=== PATIENT | female | born 1945 | race Caucasian/White ===

== ENCOUNTER → 2018-01-12 18:28 | Outpatient (CLI) | payer MEDICARE, SELFPAY ==
--- NOTE | 2018-01-12 18:38 | RAD_ITS ---
STUDY: X-RAY CHEST REASON FOR EXAM: Female, 72 years old. Bronchitis. TECHNIQUE: PA and lateral chest. COMPARISON: None. FINDINGS: The lungs are clear and expanded. There is no demonstrated pleural abnormality. Normal size heart. Normal mediastinum and tl. Normal visualized pulmonary arteries. There is atherosclerotic calcification of the aortic arch. Normal visualized thoracic spine. Normal visualized ribs, clavicles, and shoulders. Sternal wires are present. There is no demonstrated abnormality of the visualized soft tissue structures of the upper abdomen. RAD/Chest PA and Lateral IMPRESSION: No acute cardiopulmonary disease. Electronically Signed: Jose Juan Marti MD at 2:05 EDT , Service support ,
== END ==
LOC: LAB 18:34
PROVIDERS: Family Provider Family Medicine Geriatric Medicine; PCP Family Medicine Geriatric Medicine; Visit Provider Family Medicine Geriatric Medicine
DX: J40 Bronchitis, not specified as acute or chronic (principal)
CPT/HCPCS: 71046; 87633

== ENCOUNTER → 2018-05-24 16:17 | Outpatient (CLI) | payer MEDICARE, SELFPAY ==
[2018-05-24 17:27] LABS: Absolute Lymphocyte Count 1.99 X10^3/ul (0.83-4.51); Absolute Neutrophil Count 4.3 X10^3/uL (2.0-7.7); Basophil# 0.03 X10^3/uL; Basophil% 0.4 % (0-1); Eosinophil# 0.17 X10^3/uL; Eosinophils% 2.4 % (0-5); Hematocrit 32.2 % (37-47); Hemoglobin 10.7 g/dl (12.0-15.0); Lymphocyte # 1.99 X10^3/ul (4.0); Lymphocyte % 27.7 % (19-41); Mean Corp Hgb Conc 33.2 g/gl (32-36); Mean Corpuscular Hgb 28.9 pg (27.0-32.0); Mean Platelet Vol. 10.3 fl (6.2-12.0); Monocyte# 0.71 X10^3/uL; Monocyte% 9.9 % (0-10); Neutrophil # 4.27 X10^3/uL (2.7-7.7); Neutrophil % 59.3 % (47-70); POSITIVE COUNT NO; POSITIVE DIFFERENTIAL NO; POSITIVE MORPHOLOGY NO; Platelet Count 222 K/mm3 (150-450); RBC Distribution Width SD 42.9 fl (35.1-43.9); White Blood Count 7.2 K/mm3 (4.4-11.0)
[2018-05-24 18:21] LABS: ALB/GLOB Ratio 0.7 RATIO (0.9-2.4); AST(SGOT) 20 U/L (15-37); Alanine Aminotransfer ALT/SGPT 20 U/L (13-56); Albumin, Serum 3.1 g/dL (3.2-5.0); Alkaline Phosphatase 102 U/L (45-117); Anion Gap 9 (5-15); BUN 11 mg/dL (7-18); BUN/Creat Ratio 14.9 RATIO (10-20); Chloride 105 mmol/L (98-107); Cholesterol 189 mg/dL (200); Creatinine, Serum 0.74 mg/dL (0.55-1.02); EST Glomerular Filtration Rate 83 mL/min (>60); Est Glom Filt Rate - Afr Amer 100 mL/min (>60); Globulin 4.3 g/dL (2.2-4.2); Glucose 356 mg/dL (74-106); High Density Lipoprotein 43 mg/dL; Potassium 3.9 mmol/L (3.5-5.1); Protein, Total 7.4 g/dL (6.4-8.2); Sodium Level 139 mmol/L (136-145); Thyroid Stim Hormone (TSH) 6.34 uIU/mL (0.358-3.74); Triglycerides 228 mg/dL; Very Low Density Lipoprotein 46 mg/dL (5-40)
[2018-05-25 09:19] LABS: Vitamin D,25 Hydroxy 28.3 ng/mL (29.95-100.01)
== END ==
LOC: POLAB3 16:18
PROVIDERS: Family Provider Family Medicine Geriatric Medicine; PCP Family Medicine Geriatric Medicine; Visit Provider Family Medicine Geriatric Medicine
DX: E11.9 Type 2 diabetes mellitus without complications (principal); I10 Essential (primary) hypertension; E55.9 Vitamin D deficiency, unspecified
CPT/HCPCS: 36415; 80053; 80061; 82306; 84443; 85025

== ENCOUNTER → 2018-08-11 14:54 | Outpatient (CLI) | payer MEDICARE, SELFPAY ==
[2018-08-11 17:18] LABS: Absolute Lymphocyte Count 1.92 X10^3/ul (0.83-4.51); Absolute Neutrophil Count 3.5 X10^3/uL (2.0-7.7); Basophil# 0.02 X10^3/uL; Basophil% 0.3 % (0-1); Eosinophil# 0.16 X10^3/uL; Eosinophils% 2.6 % (0-5); Hematocrit 28.5 % (37-47); Hemoglobin 9.5 g/dl (12.0-15.0); Lymphocyte # 1.92 X10^3/ul (4.0); Lymphocyte % 30.6 % (19-41); Mean Corp Hgb Conc 33.3 g/gl (32-36); Mean Corpuscular Hgb 29.5 pg (27.0-32.0); Mean Corpuscular Volume 88.5 fL (81-99); Monocyte# 0.68 X10^3/uL; Monocyte% 10.8 % (0-10); Neutrophil # 3.47 X10^3/uL (2.7-7.7); Neutrophil % 55.4 % (47-70); Platelet Count 218 K/mm3 (150-450); RBC Distribution Width CV 15.7 % (11.6-14.6); RBC Distribution Width SD 48.5 fl (35.1-43.9); Red Blood Count 3.22 M/mm3 (4.2-5.4); White Blood Count 6.3 K/mm3 (4.4-11.0)
[2018-08-11 17:30] LABS: POSITIVE COUNT NO; POSITIVE DIFFERENTIAL NO; POSITIVE MORPHOLOGY NO
[2018-08-11 17:38] LABS: ALB/GLOB Ratio 0.8 RATIO (0.9-2.4); AST(SGOT) 17 U/L (15-37); Alanine Aminotransfer ALT/SGPT 18 U/L (13-56); Albumin, Serum 3.1 g/dL (3.2-5.0); Alkaline Phosphatase 61 U/L (45-117); Anion Gap 9 (5-15); BUN 16 mg/dL (7-18); Chloride 110 mmol/L (98-107); Cholesterol 144 mg/dL (200); Creatinine, Serum 0.84 mg/dL (0.55-1.02); EST Glomerular Filtration Rate 71 mL/min (>60); Est Glom Filt Rate - Afr Amer 86 mL/min (>60); Globulin 3.9 g/dL (2.2-4.2); Glucose 218 mg/dL (74-106); High Density Lipoprotein 39 mg/dL; Potassium 3.9 mmol/L (3.5-5.1); Sodium Level 143 mmol/L (136-145); Thyroid Stim Hormone (TSH) 1.04 uIU/mL (0.358-3.74); Triglycerides 194 mg/dL; Very Low Density Lipoprotein 39 mg/dL (5-40)
[2018-08-11 17:40] LABS: Vitamin D,25 Hydroxy 22.2 ng/mL (29.95-100.01)
== END ==
LOC: POLAB3 14:55
PROVIDERS: Family Provider Family Medicine Geriatric Medicine; PCP Family Medicine Geriatric Medicine; Visit Provider Family Medicine Geriatric Medicine
DX: E03.9 Hypothyroidism, unspecified (principal); E11.9 Type 2 diabetes mellitus without complications; E55.9 Vitamin D deficiency, unspecified; I10 Essential (primary) hypertension; E78.49 Other hyperlipidemia
CPT/HCPCS: 36415; 80053; 80061; 82306; 84443; 85025

== ENCOUNTER → 2019-02-08 | Outpatient (CLI) | payer MEDICARE, SELFPAY ==
[2019-02-08 17:27] LABS: Absolute Lymphocyte Count 2.03 X10^3/ul (0.83-4.51); Absolute Neutrophil Count 3.2 X10^3/uL (2.0-7.7); Basophil# 0.02 X10^3/uL; Basophil% 0.3 % (0-1); Eosinophil# 0.17 X10^3/uL; Eosinophils% 2.8 % (0-5); Hematocrit 30.3 % (37-47); Hemoglobin 10.2 g/dl (12.0-15.0); Lymphocyte # 2.03 X10^3/ul (4.0); Lymphocyte % 33.1 % (19-41); Mean Corp Hgb Conc 33.7 g/gl (32-36); Mean Corpuscular Hgb 29.7 pg (27.0-32.0); Mean Corpuscular Volume 88.1 fL (81-99); Mean Platelet Vol. 10.5 fl (6.2-12.0); Monocyte# 0.76 X10^3/uL; Monocyte% 12.4 % (0-10); Neutrophil # 3.15 X10^3/uL (2.7-7.7); Neutrophil % 51.2 % (47-70); Platelet Count 206 K/mm3 (150-450); RBC Distribution Width CV 14.7 % (11.6-14.6); RBC Distribution Width SD 45.3 fl (35.1-43.9); Red Blood Count 3.44 M/mm3 (4.2-5.4); White Blood Count 6.1 K/mm3 (4.4-11.0)
[2019-02-08 17:42] LABS: Vitamin D,25 Hydroxy 19.8 ng/mL (29.95-100.01)
[2019-02-08 17:48] LABS: POSITIVE COUNT NO; POSITIVE DIFFERENTIAL NO; POSITIVE MORPHOLOGY NO
[2019-02-08 17:50] LABS: ALB/GLOB Ratio 0.8 RATIO (0.9-2.4); AST(SGOT) 29 U/L (15-37); Alanine Aminotransfer ALT/SGPT 23 U/L (13-56); Albumin, Serum 3.4 g/dL (3.2-5.0); Alkaline Phosphatase 77 U/L (45-117); Anion Gap 10 (5-15); BUN 12 mg/dL (7-18); BUN/Creat Ratio 13.8 RATIO (10-20); Calcium,Total 9.2 mg/dL (8.5-10.1); Chloride 101 mmol/L (98-107); Cholesterol 118 mg/dL (200); Creatinine, Serum 0.87 mg/dL (0.55-1.02); EST Glomerular Filtration Rate 68 mL/min (>60); Est Glom Filt Rate - Afr Amer 83 mL/min (>60); Globulin 4.3 g/dL (2.2-4.2); Glucose 157 mg/dL (74-106); High Density Lipoprotein 42 mg/dL; Potassium 3.4 mmol/L (3.5-5.1); Protein, Total 7.7 g/dL (6.4-8.2); Sodium Level 131 mmol/L (136-145); Triglycerides 143 mg/dL; Very Low Density Lipoprotein 29 mg/dL (5-40)
== END | disposition home or self-care (01) ==
PROVIDERS: Family Provider Family Medicine Geriatric Medicine; PCP Family Medicine Geriatric Medicine; Visit Provider Family Medicine Geriatric Medicine
DX: E11.9 Type 2 diabetes mellitus without complications (principal); E55.9 Vitamin D deficiency, unspecified; E78.5 Hyperlipidemia, unspecified; I10 Essential (primary) hypertension
CPT/HCPCS: 36415; 80053; 80061; 82306; 84443; 85025

== ENCOUNTER → 2019-09-07 12:12 | Outpatient (CLI) | payer MEDICARE, SELFPAY ==
[2019-09-07 13:01] LABS: Absolute Lymphocyte Count 2.57 X10^3/uL (0.83-4.51); Absolute Neutrophil Count 2.7 X10^3/uL (2.0-7.7); Basophil# 0.04 X10^3/uL; Basophil% 0.6 % (0-1); Eosinophil# 0.31 X10^3/uL; Eosinophils% 4.8 % (0-5); Hematocrit 29.3 % (37-47); Hemoglobin 9.5 g/dL (12.0-15.0); Lymphocyte # 2.57 X10^3/ul (4.0); Lymphocyte % 39.8 % (19-41); Mean Corp Hgb Conc 32.4 g/dL (32-36); Mean Corpuscular Hgb 29.5 pg (27.0-32.0); Mean Platelet Vol. 10.4 fl (6.2-12.0); Monocyte% 12.4 % (0-10); NRBC Flagged by Analyzer 0 % (0-5); Neutrophil # 2.72 X10^3/uL (2.7-7.7); Neutrophil % 42.1 % (47-70); Platelet Count 232 K/mm3 (150-450); RBC Distribution Width CV 14.7 % (11.6-14.6); RBC Distribution Width SD 48.4 fl (35.1-43.9); Red Blood Count 3.22 M/mm3 (4.2-5.4); White Blood Count 6.5 K/mm3 (4.4-11.0)
[2019-09-07 13:30] LABS: ALB/GLOB Ratio 0.7 RATIO (0.9-2.4); AST(SGOT) 31 U/L (15-37); Alanine Aminotransfer ALT/SGPT 24 U/L (13-56); Albumin, Serum 3.1 g/dL (3.2-5.0); Alkaline Phosphatase 71 U/L (45-117); Anion Gap 8 (5-15); BUN 15 mg/dL (7-18); BUN/Creat Ratio 18.1 RATIO (10-20); Calcium,Total 9.6 mg/dL (8.5-10.1); Chloride 101 mmol/L (98-107); Cholesterol 120 mg/dL (200); Creatinine, Serum 0.83 mg/dL (0.55-1.02); EST Glomerular Filtration Rate 72 mL/min (>60); Est Glom Filt Rate - Afr Amer 87 mL/min (>60); Globulin 4.2 g/dL (2.2-4.2); Glucose 144 mg/dL (74-106); High Density Lipoprotein 46 mg/dL; Potassium 3.7 mmol/L (3.5-5.1); Protein, Total 7.3 g/dL (6.4-8.2); Sodium Level 133 mmol/L (136-145); Thyroid Stim Hormone (TSH) 2.95 uIU/mL (0.358-3.74); Triglycerides 147 mg/dL; Very Low Density Lipoprotein 29 mg/dL (5-40)
== END ==
LOC: POLAB3 12:12
PROVIDERS: PCP Family Medicine Geriatric Medicine; Visit Provider Family Medicine Geriatric Medicine
DX: E11.9 Type 2 diabetes mellitus without complications (principal); E55.9 Vitamin D deficiency, unspecified; E78.5 Hyperlipidemia, unspecified; I10 Essential (primary) hypertension
CPT/HCPCS: 36415; 80053; 80061; 82306; 84443; 85025

== ENCOUNTER → 2019-09-14 12:36 | Outpatient (CLI) | payer MEDICARE, SELFPAY ==
[2019-09-14 13:31] LABS: Absolute Lymphocyte Count 2.33 X10^3/uL (0.83-4.51); Absolute Neutrophil Count 3.8 X10^3/uL (2.0-7.7); Basophil# 0.03 X10^3/uL; Basophil% 0.4 % (0-1); Eosinophil# 0.21 X10^3/uL; Eosinophils% 2.9 % (0-5); Hemoglobin 10.4 g/dL (12.0-15.0); Lymphocyte # 2.33 X10^3/ul (4.0); Lymphocyte % 32.7 % (19-41); Mean Corp Hgb Conc 33.5 g/dL (32-36); Mean Corpuscular Hgb 30.2 pg (27.0-32.0); Mean Corpuscular Volume 90.1 fL (81-99); Mean Platelet Vol. 9.8 fl (6.2-12.0); Monocyte# 0.78 X10^3/uL; Monocyte% 10.9 % (0-10); NRBC Flagged by Analyzer 0 % (0-5); Neutrophil # 3.75 X10^3/uL (2.7-7.7); Neutrophil % 52.7 % (47-70); Platelet Count 250 K/mm3 (150-450); RBC Distribution Width CV 14.2 % (11.6-14.6); RBC Distribution Width SD 46.8 fl (35.1-43.9); Red Blood Count 3.44 M/mm3 (4.2-5.4); White Blood Count 7.1 K/mm3 (4.4-11.0)
[2019-09-14 14:06] LABS: Ferritin 35 ng/mL (8-252); Iron 91 ug/dL (50-170); Iron Binding Capacity,Total 355 ug/dL (250-450); PERCENT IRON SATURATION 25.6 % (15.0-55.0)
== END ==
LOC: LAB.FUTURE 12:43 → LAB 12:45
PROVIDERS: Family Provider Family Medicine Geriatric Medicine; PCP Family Medicine Geriatric Medicine; Referring Provider Family Medicine Geriatric Medicine; Visit Provider Family Medicine Geriatric Medicine
DX: D64.9 Anemia, unspecified (principal); E03.9 Hypothyroidism, unspecified; E87.6 Hypokalemia
CPT/HCPCS: 36415; 82728; 82746; 83540; 83550; 85025

== ENCOUNTER → 2020-03-13 | Outpatient (CLI) | payer MEDICARE, SELFPAY ==
[2020-03-13 10:08] LABS: Absolute Lymphocyte Count 1.88 X10^3/uL (0.83-4.51); Absolute Neutrophil Count 2.2 X10^3/uL (2.0-7.7); Basophil# 0.03 X10^3/uL; Basophil% 0.6 % (0-1); Eosinophil# 0.18 X10^3/uL; Eosinophils% 3.6 % (0-5); Hematocrit 25.1 % (37-47); Hemoglobin 8.5 g/dL (12.0-15.0); Lymphocyte # 1.88 X10^3/ul (4.0); Mean Corp Hgb Conc 33.9 g/dL (32-36); Mean Corpuscular Hgb 31.3 pg (27.0-32.0); Mean Corpuscular Volume 92.3 fL (81-99); Monocyte# 0.68 X10^3/uL; Monocyte% 13.7 % (0-10); NRBC Flagged by Analyzer 0 % (0-5); Neutrophil # 2.16 X10^3/uL (2.7-7.7); Neutrophil % 43.7 % (47-70); Platelet Count 199 K/mm3 (150-450); RBC Distribution Width CV 14.2 % (11.6-14.6); RBC Distribution Width SD 47.4 fl (35.1-43.9); Red Blood Count 2.72 M/mm3 (4.2-5.4)
[2020-03-13 10:47] LABS: ALB/GLOB Ratio 0.8 RATIO (0.9-2.4); AST(SGOT) 32 U/L (15-37); Alanine Aminotransfer ALT/SGPT 22 U/L (13-56); Albumin, Serum 3.2 g/dL (3.2-5.0); Alkaline Phosphatase 81 U/L (45-117); Anion Gap 8 (5-15); BUN 13 mg/dL (7-18); BUN/Creat Ratio 16.8 RATIO (10-20); Calcium,Total 9.1 mg/dL (8.5-10.1); Chloride 102 mmol/L (98-107); Cholesterol 110 mg/dL (200); Creatinine, Serum 0.78 mg/dL (0.55-1.02); EST Glomerular Filtration Rate 77 mL/min (>60); Est Glom Filt Rate - Afr Amer 94 mL/min (>60); Globulin 3.9 g/dL (2.2-4.2); Glucose 125 mg/dL (74-106); High Density Lipoprotein 39 mg/dL; Potassium 3.6 mmol/L (3.5-5.1); Protein, Total 7.1 g/dL (6.4-8.2); Sodium Level 131 mmol/L (136-145); Triglycerides 124 mg/dL; Very Low Density Lipoprotein 25 mg/dL (5-40)
[2020-03-13 14:19] LABS: Vitamin D,25 Hydroxy 26.8 ng/mL
== END | disposition home or self-care (01) ==
LOC: POLAB3 09:47
PROVIDERS: PCP Family Medicine Geriatric Medicine; Visit Provider Family Medicine Geriatric Medicine
DX: E11.9 Type 2 diabetes mellitus without complications (principal); E55.9 Vitamin D deficiency, unspecified; I10 Essential (primary) hypertension; E78.5 Hyperlipidemia, unspecified
CPT/HCPCS: 36415; 80053; 80061; 82306; 84443; 85025

== ENCOUNTER 2020-05-12 04:40 | Emergency (ER) | payer MEDICARE, SELFPAY ==
[2020-03-19 15:05] VITALS: BMI 28.9
[2020-05-12 04:41] VITALS: BP 96/80; PULSE 62; RESP 18; TEMP 36.4; O2SAT 100; BMI 33.6
--- NOTE | 2020-05-12 05:10 | RAD_ITS ---
STUDY: X-RAY - RIGHT SHOULDER REASON FOR EXAM: Female, 75 years old. RIGHT SHOULDER PAIN FROM FALL. TECHNIQUE: 4 view(s) of the shoulder. COMPARISON: None. FINDINGS: There is mild degenerative arthrosis of the glenohumeral articulation. There is degenerative arthrosis of the acromioclavicular joint without inferior osseous spur formation. Normal acromion. There is a linear lucency involving the posterior humeral head on external rotation view The soft tissue structures are unremarkable. Normal visualized pulmonary apex. RAD/Shoulder min 2 Views IMPRESSION: Linear lucency involving the posterior aspect of the humeral head on external rotation view concerning for nondisplaced fracture, although not seen on other views. No dislocation. Electronically Signed: Josias Madden, at 5:29 EDT Tel , Service support ,
--- NOTE | 2020-05-12 05:38 | ED.DCSUM_ITS ---
History of Present Illness Chief Complaint: Fall Informant: Patient Narrative: Patient got up to use the bathroom tonight when she fell striking the right shoulder against the nightstand. She denies any other injuries. She is right- handed. She notes limited range of motion. - Past Medical History (1) Anemia Status: Chronic (2) NSTEMI (non-ST elevated myocardial infarction) Status: Chronic (3) Pre-syncope Status: Chronic (4) Tachycardia Status: Chronic (5) Diabetes mellitus, type 2 Status: Chronic (6) Hyperlipemia Status: Chronic (7) Hypertension Status: Chronic (8) Hypothyroidism Status: Chronic (9) Murmur, cardiac Status: Chronic Past Medical History - Allergies and Home Meds Allergies/Adverse Reactions: Allergies Penicillins Allergy (Verified 05/12/20 04:47) Hives Primary Care Physician: Candelario Santana Chi, MD [Primary Care Provider] - Surgical History: appendectomy, cholecystectomy, - - Thyroidectomy Smoking Status: Never smoker - Family History Maternal Family History: Family History (Last Reviewed 04/09/20 @ 11:27 by Favio Mae) Father Myocardial infarction Sister Breast cancer Family History: Reports: Stroke Paternal Family History: Family History (Last Reviewed 04/09/20 @ 11:27 by Favio Mae) Father Myocardial infarction Sister Breast cancer Family History: Reports: Heart Disease Review of Systems General: Denies: Chills, Fever, Sweats Eyes: Denies: Visual changes - bilaterally, Diplopia ENT: Denies: Rhinorrhea, Sore throat Cardiovascular: Denies: Chest pain, Palpitations Respiratory: Denies: Dyspnea, Cough, Dyspnea on exertion Gastrointestinal: Denies: Abdominal pain, Nausea, Vomiting, Diarrhea, Melena, Hematochezia Genitourinary: Denies: Dysuria, Hematuria, Frequency Musculoskeletal: Reports: Extremity Pain. Denies: Back pain Skin: Denies: Rash, Wounds Neurological: Denies: Headache, Weakness, Numbness Physical Exam Vital Signs/Narrative: Vital Signs Temp Pulse Resp BP Pulse Ox 05/12/20 04:41 97.6 F L 62 18 96/80 100 Inital Vital Signs reviewed: Yes General: Well nourished, Well developed, No Acute Distress Head: Normocephalic, Atraumatic Eyes: Perrl, EOMI ENT: Moist mucous membranes, No rhinorrhea Neck: Supple, Nontender Cardiovascular: Regular rate, Regular rhythm, No murmurs Respiratory: No distress, CTA bilaterally, Chest nontender Abdomen: Soft, Nontender, Nondistended, Normal bowel sounds Back: Nontender, Normal Inspection Extremities: No edema, Tenderness - Patient has tenderness to palpation of the posterior aspect of the right shoulder. Limited range of motion. No obvious dislocation. Clavicle appears uninjured. NVI Skin: Normal color, No rash Neurological: Alert, Oriented x3, Cranial nerves II-XII grossly intact, Normal Strength, Normal Sensation Psychological: Normal affect, Normal Mood Diagnostic/Tx/Re-eval Clinical Impression(s) from Imaging Studies Shoulder X-Ray 05/12/20 05:10 IMPRESSION: Linear lucency involving the posterior aspect of the humeral head on external rotation view concerning for nondisplaced fracture, although not seen on other views. No dislocation. Electronically Signed: Ranulforoxie Chano, at 5:29 EDT Tel , Service support , - Medical Decision Making X-rays are consistent with a proximal humerus fracture. Should be placed in a sling given pain medication and instructions to follow-up with orthopedics. ED Disposition - Plan for ED Patient: Disposition: Home or Assisted Living Diagnosis: Closed fracture of right proximal humerus Instructions: ED Fracture Upper Extremity Prescriptions: Oxycodone [Oxyir] 5 mg PO Q6H PRN PRN 3 Days #12 tab PRN Reason: Pain Prescription Printed Referrals: Bouchra Ruiz DO [STAFF PHYSICIAN] - (call to arrange follow up with Orthopedics)
[2020-05-12] MEDS: oxyCODONE 5 MG Tablet PO (05:39)
[2020-05-12 06:05] VITALS: BP 100/82; PULSE 78; RESP 16; O2SAT 96
== END 2020-05-12 06:06 | disposition home or self-care (01) ==
PROVIDERS: Emergency Provider Emergency Medicine; PCP Family Medicine Geriatric Medicine
DX: S42.201A Unspecified fracture of upper end of right humerus, initial encounter for closed fracture (principal); E11.9 Type 2 diabetes mellitus without complications; E78.5 Hyperlipidemia, unspecified; I10 Essential (primary) hypertension; E03.9 Hypothyroidism, unspecified; I25.2 Old myocardial infarction; Z79.84 Long term (current) use of oral hypoglycemic drugs; Z79.899 Other long term (current) drug therapy; W18.30XA Fall on same level, unspecified, initial encounter; Y93.01 Activity, walking, marching and hiking; Y92.003 Bedroom of unspecified non-institutional (private) residence as the place of occurrence of the external cause; Y99.8 Other external cause status
CPT/HCPCS: 73030; 99283

== ENCOUNTER → 2020-05-31 | Outpatient (CLI) | payer MEDICARE, SELFPAY ==
[2020-05-23 13:31] VITALS: BMI 29.8
--- NOTE | 2020-05-31 09:51 | MRI_ITS ---
STUDY: MRI RIGHT SHOULDER WITH AND WITHOUT CONTRAST REASON FOR EXAM: Right greater tuberosity fracture, pain, right shoulder injury from a fall 1 month ago, evaluate for underlying lesion. TECHNIQUE: Standardized fat and water weighted pulse sequences were obtained in all 3 orthogonal planes before and after intravenous administration of 13 mL of Dotarem. COMPARISON: Radiographs 05/17/2020. FINDINGS: Although there is image degradation secondary to patient motion, there is still significant diagnostically useful information available from this examination. There is a full-thickness tear of the supraspinatus tendon retracted approximately 1.7 cm (T2 coronal images 11-15). There is a retracted avulsion fracture fragment of the greater tuberosity at the posterior aspect of the humeral head involving the infraspinatus tendon attachment (T2 axial images 13-15) and teres minor tendon attachment (T2 axial images 16-18). Normal subscapularis tendon. There is a low-grade strain of the posterior supraspinatus muscle (proton-density axial images 9, 10). Normal infraspinatus muscle. There is a low-grade strain of the posterior subscapularis muscle (proton-density axial images 17, 18). Normal teres minor muscle. There is a small glenohumeral joint effusion. There is superior migration of the humeral head secondary to the retracted rotator cuff tear. There is bone edema in the humeral head at the site of the greater tuberosity avulsion and surgical neck with contrast enhancement (postcontrast T1 coronal images 13-17) without demonstrated underlying lesion. Normal biceps labral complex. Normal intracapsular long biceps tendon. Normal labrum. Normal capsulo- ligamentous complex. There is acromioclavicular arthrosis with hypertrophic changes (T2 sagittal images 13, 14). There is a Type II morphology (curved), with a neutral orientation. There is subacromial-subdeltoid bursal fluid. There is thickening of the coracoacromial ligament (T2 sagittal image 10). Normal deltoid muscle. Normal trapezius muscle. MRI/Upper Ext Joint Only W/WO Cont IMPRESSION: Retracted avulsion fracture of the greater tuberosity displaced posteriorly involving the infraspinatus and teres minor tendon attachments without demonstrated underlying humeral head lesion. Full-thickness tear of the supraspinatus tendon. Low-grade strains of the supraspinatus and subscapularis muscles. Acromioclavicular arthrosis. Thickening of the coracoacromial ligament. Glenohumeral joint fluid communicating with the subacromial-subdeltoid bursa. Electronically Signed: Aldo Aguilar MD at 11:44 EDT Tel , Service support ,
[2020-05-31 11:00] LABS: CREATININE FINGERSTICK 0.7 mg/dL (0.55-1.02); EGFR FINGERSTICK > 60.0000 mL/min (>60)
== END | disposition home or self-care (01) ==
PROVIDERS: PCP Family Medicine Geriatric Medicine; Referring Provider Orthopaedic Surgery; Visit Provider Orthopaedic Surgery
DX: S42.253A Displaced fracture of greater tuberosity of unspecified humerus, initial encounter for closed fracture (principal)
CPT/HCPCS: 73223; A9575

== ENCOUNTER → 2020-09-11 09:33 | Outpatient (CLI) | payer MEDICARE, SELFPAY ==
[2020-07-23 16:12] VITALS: BMI 25.9
[2020-09-11 12:47] LABS: Absolute Lymphocyte Count 2.62 X10^3/uL (0.83-4.51); Absolute Neutrophil Count 3.2 X10^3/uL (2.0-7.7); Basophil# 0.05 X10^3/uL; Basophil% 0.8 % (0-1); Eosinophil# 0.21 X10^3/uL; Eosinophils% 3.2 % (0-5); Hemoglobin 11.6 g/dL (12.0-15.0); Lymphocyte # 2.62 X10^3/ul (4.0); Mean Corp Hgb Conc 34.1 g/dL (32-36); Mean Corpuscular Hgb 29.5 pg (27.0-32.0); Mean Corpuscular Volume 86.5 fL (81-99); Mean Platelet Vol. 9.9 fl (6.2-12.0); Monocyte# 0.48 X10^3/uL; Monocyte% 7.3 % (0-10); NRBC Flagged by Analyzer 0 % (0-5); Neutrophil # 3.18 X10^3/uL (2.7-7.7); Neutrophil % 48.5 % (47-70); Platelet Count 277 K/mm3 (150-450); RBC Distribution Width CV 12.9 % (11.6-14.6); RBC Distribution Width SD 40.7 fl (35.1-43.9); Red Blood Count 3.93 M/mm3 (4.2-5.4); White Blood Count 6.6 K/mm3 (4.4-11.0)
[2020-09-11 13:04] LABS: ALB/GLOB Ratio 0.7 RATIO (0.9-2.4); AST(SGOT) 22 U/L (15-37); Alanine Aminotransfer ALT/SGPT 21 U/L (13-56); Albumin, Serum 3.4 g/dL (3.2-5.0); Alkaline Phosphatase 121 U/L (45-117); Anion Gap 9 (5-15); BUN 14 mg/dL (7-18); BUN/Creat Ratio 19.6 RATIO (10-20); Calcium,Total 9.5 mg/dL (8.5-10.1); Chloride 107 mmol/L (98-107); Creatinine, Serum 0.72 mg/dL (0.55-1.02); EST Glomerular Filtration Rate 85 mL/min (>60); Est Glom Filt Rate - Afr Amer 103 mL/min (>60); Globulin 4.7 g/dL (2.2-4.2); Glucose 230 mg/dL (74-106); Potassium 3.7 mmol/L (3.5-5.1); Protein, Total 8.1 g/dL (6.4-8.2); Sodium Level 138 mmol/L (136-145); Thyroid Stim Hormone (TSH) 3.32 uIU/mL (0.358-3.74)
[2020-09-11 13:23] LABS: Vitamin D,25 Hydroxy 33.8 ng/mL
== END ==
PROVIDERS: PCP Family Medicine Geriatric Medicine; Visit Provider Family Medicine Geriatric Medicine
DX: E11.9 Type 2 diabetes mellitus without complications (principal); E55.9 Vitamin D deficiency, unspecified; E78.5 Hyperlipidemia, unspecified; I10 Essential (primary) hypertension
CPT/HCPCS: 36415; 80053; 82306; 84443; 85025

== ENCOUNTER 2021-09-15 15:37 | Outpatient (CLI) | payer MEDICARE, SELFPAY ==
[2021-09-15 16:46] LABS: Absolute Neutrophil Count 3.7 X10^3/uL (2.0-7.7); Basophil# 0.05 X10^3/uL; Basophil% 0.6 % (0-1); Eosinophil# 0.13 X10^3/uL; Eosinophils% 1.6 % (0-5); Hematocrit 33.9 % (37-47); Hemoglobin 12.2 g/dL (12.0-15.0); Lymphocyte % 44.3 % (19-41); Mean Corpuscular Hgb 31.6 pg (27.0-32.0); Mean Corpuscular Volume 87.8 fL (81-99); Mean Platelet Vol. 9.9 fl (6.2-12.0); Monocyte# 0.63 X10^3/uL; Monocyte% 7.8 % (0-10); NRBC Flagged by Analyzer 0 % (0-5); Neutrophil # 3.69 X10^3/uL (2.7-7.7); Neutrophil % 45.5 % (47-70); Platelet Count 220 K/mm3 (150-450); RBC Distribution Width CV 13.8 % (11.6-14.6); RBC Distribution Width SD 43.9 fl (35.1-43.9); Red Blood Count 3.86 M/mm3 (4.2-5.4); White Blood Count 8.1 K/mm3 (4.4-11.0)
[2021-09-15 17:21] LABS: Vitamin D,25 Hydroxy 29.7 ng/mL
[2021-09-15 17:23] LABS: ALB/GLOB Ratio 0.6 RATIO (0.9-2.4); AST(SGOT) 26 U/L (15-37); Alanine Aminotransfer ALT/SGPT 23 U/L (13-56); Albumin, Serum 3.1 g/dL (3.2-5.0); Alkaline Phosphatase 131 U/L (45-117); Anion Gap 8 (5-15); BUN 11 mg/dL (7-18); BUN/Creat Ratio 15.6 RATIO (10-20); Calcium,Total 8.9 mg/dL (8.5-10.1); Chloride 103 mmol/L (98-107); Creatinine, Serum 0.71 mg/dL (0.55-1.02); EST Glomerular Filtration Rate 86 mL/min (>60); Est Glom Filt Rate - Afr Amer 104 mL/min (>60); Globulin 4.9 g/dL (2.2-4.2); Glucose 315 mg/dL (74-106); Potassium 3.3 mmol/L (3.5-5.1); Sodium Level 135 mmol/L (136-145); Thyroid Stim Hormone (TSH) 6.85 uIU/mL (0.358-3.74)
== END 2021-09-15 23:59 | disposition short-term general hospital (02) ==
PROVIDERS: PCP Family Medicine Geriatric Medicine; Visit Provider Family Medicine Geriatric Medicine
DX: E11.9 Type 2 diabetes mellitus without complications (principal); E55.9 Vitamin D deficiency, unspecified; E78.5 Hyperlipidemia, unspecified; I10 Essential (primary) hypertension
CPT/HCPCS: 36415; 80053; 82306; 84443; 85025

== ENCOUNTER 2021-09-24 11:32 | Outpatient (CLI) | payer MEDICARE, SELFPAY ==
[2021-09-24 13:16] LABS: Anion Gap 6 (5-15); BUN 11 mg/dL (7-18); BUN/Creat Ratio 16.5 RATIO (10-20); Calcium,Total 8.9 mg/dL (8.5-10.1); Chloride 102 mmol/L (98-107); Creatinine, Serum 0.67 mg/dL (0.55-1.02); EST Glomerular Filtration Rate 92 mL/min (>60); Est Glom Filt Rate - Afr Amer 111 mL/min (>60); Glucose 199 mg/dL (74-106); Potassium 4.6 mmol/L (3.5-5.1); Sodium Level 132 mmol/L (136-145)
== END 2021-09-24 23:59 | disposition short-term general hospital (02) ==
LOC: POLAB3 11:32
PROVIDERS: PCP Family Medicine Geriatric Medicine; Visit Provider Family Medicine Geriatric Medicine
DX: E87.6 Hypokalemia (principal)
CPT/HCPCS: 36415; 80048

== ENCOUNTER 2021-12-15 13:33 | Outpatient (CLI) | payer MEDICARE, SELFPAY ==
[2021-12-15 17:14] LABS: Absolute Lymphocyte Count 2.22 X10^3/uL (0.83-4.51); Absolute Neutrophil Count 2.1 X10^3/uL (2.0-7.7); Basophil# 0.03 X10^3/uL; Basophil% 0.6 % (0-1); Eosinophil# 0.12 X10^3/uL; Eosinophils% 2.4 % (0-5); Hematocrit 28.8 % (37-47); Hemoglobin 9.9 g/dL (12.0-15.0); Lymphocyte # 2.22 X10^3/ul (0.83-4.51); Lymphocyte % 44.8 % (19-41); Mean Corp Hgb Conc 34.4 g/dL (32-36); Mean Corpuscular Hgb 31.1 pg (27.0-32.0); Mean Corpuscular Volume 90.6 fL (81-99); Mean Platelet Vol. 10.1 fl (6.2-12.0); Monocyte# 0.52 X10^3/uL; Monocyte% 10.5 % (0-10); NRBC Flagged by Analyzer 0 % (0-5); Neutrophil # 2.05 X10^3/uL (2.7-7.7); Neutrophil % 41.5 % (47-70); Platelet Count 199 K/mm3 (150-450); RBC Distribution Width CV 13.8 % (11.6-14.6); RBC Distribution Width SD 46.1 fl (35.1-43.9); Red Blood Count 3.18 M/mm3 (4.2-5.4)
[2021-12-15 17:37] LABS: ALB/GLOB Ratio 0.7 RATIO (0.9-2.4); AST(SGOT) 30 U/L (15-37); Alanine Aminotransfer ALT/SGPT 27 U/L (13-56); Alkaline Phosphatase 98 U/L (45-117); Anion Gap 8 (5-15); BUN 11 mg/dL (7-18); BUN/Creat Ratio 14.4 RATIO (10-20); Calcium,Total 8.3 mg/dL (8.5-10.1); Chloride 109 mmol/L (98-107); Cholesterol 160 mg/dL (200); Creatinine, Serum 0.76 mg/dL (0.55-1.02); EST Glomerular Filtration Rate 79 mL/min (>60); Est Glom Filt Rate - Afr Amer 95 mL/min (>60); Globulin 4.1 g/dL (2.2-4.2); Glucose 248 mg/dL (74-106); High Density Lipoprotein 52 mg/dL; Potassium 3.8 mmol/L (3.5-5.1); Protein, Total 7.1 g/dL (6.4-8.2); Sodium Level 140 mmol/L (136-145); Triglycerides 67 mg/dL; Very Low Density Lipoprotein 13 mg/dL (5-40)
== END 2021-12-15 23:59 | disposition home or self-care (01) ==
LOC: POLAB3 13:34
PROVIDERS: PCP Family Medicine Geriatric Medicine; Visit Provider Family Medicine Geriatric Medicine
DX: I10 Essential (primary) hypertension (principal); E11.9 Type 2 diabetes mellitus without complications; E78.5 Hyperlipidemia, unspecified; E55.9 Vitamin D deficiency, unspecified
CPT/HCPCS: 36415; 80053; 80061; 82306; 84443; 85025

== ENCOUNTER → 2021-12-22 | Outpatient (CLI) | payer MEDICARE, SELFPAY ==
[2021-12-22 15:42] LABS: Absolute Lymphocyte Count 2.26 X10^3/uL (0.83-4.51); Absolute Neutrophil Count 2.5 X10^3/uL (2.0-7.7); Basophil# 0.03 X10^3/uL; Basophil% 0.5 % (0-1); Eosinophil# 0.15 X10^3/uL; Eosinophils% 2.7 % (0-5); Hematocrit 30.1 % (37-47); Hemoglobin 10.4 g/dL (12.0-15.0); Lymphocyte # 2.26 X10^3/ul (0.83-4.51); Lymphocyte % 41.2 % (19-41); Mean Corp Hgb Conc 34.6 g/dL (32-36); Mean Corpuscular Hgb 31.3 pg (27.0-32.0); Mean Corpuscular Volume 90.7 fL (81-99); Mean Platelet Vol. 9.6 fl (6.2-12.0); Monocyte% 9.1 % (0-10); NRBC Flagged by Analyzer 0 % (0-5); Neutrophil # 2.53 X10^3/uL (2.7-7.7); Neutrophil % 46.1 % (47-70); Platelet Count 217 K/mm3 (150-450); RBC Distribution Width CV 13.5 % (11.6-14.6); RBC Distribution Width SD 44.7 fl (35.1-43.9); Red Blood Count 3.32 M/mm3 (4.2-5.4); Reticulocyte Count 1.42 % (0.5-1.5); White Blood Count 5.5 K/mm3 (4.4-11.0)
[2021-12-22 16:01] LABS: Vitamin B12 1270 pg/mL (211-911)
[2021-12-22 16:08] LABS: Ferritin 20 ng/mL (8-252); Iron 56 ug/dL (50-170); Iron Binding Capacity,Total 288 ug/dL (250-450); PERCENT IRON SATURATION 19.4 % (15.0-55.0)
== END | disposition home or self-care (01) ==
LOC: POLAB3 14:36
PROVIDERS: PCP Family Medicine Geriatric Medicine; Visit Provider Family Medicine Geriatric Medicine
DX: D64.9 Anemia, unspecified (principal)
CPT/HCPCS: 36415; 82607; 82728; 82746; 83540; 83550; 85025; 85045

== ENCOUNTER 2022-03-20 02:07 | Inpatient (IN) | payer MEDICARE, SELFPAY ==
[2022-03-20] VITALS (13 sets, daily range): BP systolic 84–169; BP diastolic 46–78; PULSE 71–86; RESP 15–18; TEMP 36.2–37.1; O2SAT 96–99; BMI 28.0; BMI 25.8
--- NOTE | 2022-03-20 02:43 | ED.RN ---
EMESIS X1. GOWN CHANGED AND PT CLEANED.
--- NOTE | 2022-03-20 02:56 | CT_ITS ---
STUDY: CT ABDOMEN AND PELVIS WITH CONTRAST REASON FOR EXAM: Female, 76 years old. Abd pain RADIATION DOSAGE (If Supplied By Facility): CTDIvol = ( 18.57 ) mGy, DLP = ( 1059.62 ) mGycm TECHNIQUE: Transaxial images were obtained from the dome of the diaphragm to the symphysis pubis without oral contrast. IV 100mL Isovue-300 was administered. Sagittal and coronal images were reconstructed. Individualized dose optimization techniques were used for this CT. COMPARISON: None. FINDINGS: Within the left lung base there is mild peribronchial thickening. The vascular markings are mildly prominent. There is mild cardiac enlargement there are dense coronary calcifications. Sternotomy wires are seen midline. There is moderate to severe intra and extrahepatic ductal dilatation. There is a distended appearance of the common bile duct up to 1.9 cm. There is visualized hyperdense material within the common duct measuring up to 3.6 cm in length and 1 cm in width. This is suggestive of sludge or potentially biliary stones. There is surrounding soft tissue edema within the ambreen hepatis, there is edema surrounding the head of the pancreas and the duodenum. The gallbladder is not visualized and may have been surgically removed. Normal spleen. There is an edematous appearance of the pancreas with surrounding stranding suspicious for acute pancreatitis. Normal bilateral adrenal glands. Normal right kidney. Normal left kidney. There is a minimally thick-walled decompressed appearance of this distal stomach. There is edema around the distal stomach and duodenal bulb. There is a thick-walled appearance of the first and second part of the duodenum compatible with duodenitis associated pancreatitis and biliary obstruction. There is mild to moderate stool in the colon. There is visualized diverticulosis without visualized diverticulitis. The appendix is visualized and appears normal. Aorta is partially calcified. There is calcification of the takeoff of the celiac, splenic mesenteric artery and bilateral renal arteries. There is calcific density within the gluteal fat suggesting granulomatous calcification. Normal inferior vena cava. Normal retroperitoneum. Normal urinary bladder. Normal visualized uterus. There is a mildly prominent appearance of the vessels within the pelvis that do not meet criteria for pelvic congestion distention. Normal abdominal wall. There is degenerative change of the thoracolumbar spine. There is chronic appearing loss of height at the level of L4, L5. There is multilevel spondylosis. At the level of L4-L5 there is a broad disc osteophyte moderate neural foramina narrowing mild to moderate central stenosis. There is facet arthropathy. The degenerative change of the SI joints. CT/Abdomen/Pelvis W IV Cont ONLY IMPRESSION: Findings are are consistent with obstruction of the common duct secondary to a column of sludge or stones within the common duct measuring 3.6 in length x 1.0 cm in width . There is intrahepatic ductal dilatation extrahepatic ductal dilatation. There is accompanying pancreatitis and duodenitis and mild distal gastritis. Further evaluation is recommended with ERCP and/or MRCP. The gallbladder is not visualized and may have been surgically removed. Mild to moderate constipation diverticulosis and diverticulitis. Atherosclerotic disease of the aorta including fairly dense calcification of the tic of the bilateral renal arteries. Status post sternotomy. Mild cardiomegaly coronary artery disease. There is mild left-sided small airways peribronchial inflammation for which mild bronchiolitis could be considered. N.B. : The above Results were Read Back by Chitra Hurt MD to Eber Robles MD, and understanding confirmed on 03/20/2022 04:19:30 (ET). Electronically Signed: Chitra Hurt MD at 4:21 EDT ,
[2022-03-20 03:16] LABS: Mucous, Urine 0 SEEN /hpf (<or=2+)
[2022-03-20] MEDS: Morphine 2 MG/ML Syringe IV (03:16)
[2022-03-20] MEDS: Ondansetron 4 MG/2 ML Vial IV (03:16)
[2022-03-20] MEDS: 0.9% Normal Saline 1,000 ML 999 ML IV ×3 (03:16→13:21)
[2022-03-20 03:19] LABS: Absolute Lymphocyte Count 1.85 X10^3/uL (0.83-4.51); Absolute Neutrophil Count 16.2 X10^3/uL (2.0-7.7); Basophil# 0.04 X10^3/uL; Basophil% 0.2 % (0-1); Eosinophil# 0.11 X10^3/uL; Eosinophils% 0.6 % (0-5); Hematocrit 32.3 % (37-47); Hemoglobin 11.6 g/dL (12.0-15.0); Lymphocyte # 1.85 X10^3/ul (0.83-4.51); Lymphocyte % 9.5 % (19-41); Mean Corp Hgb Conc 35.9 g/dL (32-36); Mean Corpuscular Hgb 31.9 pg (27.0-32.0); Mean Corpuscular Volume 88.7 fL (81-99); Mean Platelet Vol. 10.6 fl (6.2-12.0); Monocyte# 1.18 X10^3/uL; NRBC Flagged by Analyzer 0 % (0-5); Neutrophil # 16.16 X10^3/uL (2.7-7.7); Neutrophil % 82.7 % (47-70); POSITIVE COUNT YES; Platelet Count 227 K/mm3 (150-450); RBC Distribution Width CV 13.2 % (11.6-14.6); RBC Distribution Width SD 42.5 fl (35.1-43.9); Red Blood Count 3.64 M/mm3 (4.2-5.4); White Blood Count 19.5 K/mm3 (4.4-11.0)
[2022-03-20 03:21] LABS: Differential Indicated SCAN CRITERIA MET
[2022-03-20 03:22] LABS: Color, Urine Yellow (Yellow); Glucose, Dipstick 50 mg/dl (Normal); Ketone-Dipstick 15 mg/dl (Negative); Leukocyte Esterase-Dipstick 500 /ul (Negative); Nitrite-Dipstick Negative (Negative); Occult Blood-Urine 250 /ul (Negative); Protein-Dipstick 100 mg/dl (Negative); Specific Gravity, Urine 1.015 (1.002-1.030); Urine Bilirubin Dipstick 3 mg/dL (Negative); Urine Clarity Cloudy (Clear); Urine Urobilinogen 12 mg/dl (Normal)
[2022-03-20 03:27] LABS: AST(SGOT) 133 U/L (15-37); Alanine Aminotransfer ALT/SGPT 108 U/L (13-56); Albumin, Serum 2.6 g/dL (3.2-5.0); Alkaline Phosphatase 266 U/L (45-117); Anion Gap 9 (5-15); BUN 18 mg/dL (7-18); BUN/Creat Ratio 30.4 RATIO (10-20); Bilirubin, Direct 2.33 mg/dL (0.00-0.30); Chloride 102 mmol/L (98-107); Creatinine, Serum 0.59 mg/dL (0.55-1.02); EST Glomerular Filtration Rate 105 mL/min (>60); Est Glom Filt Rate - Afr Amer 127 mL/min (>60); Estimated Creatinine Clearance 37.24 ml/min; Globulin 4.7 g/dL (2.2-4.2); Glucose 192 mg/dL (74-106); Lipase 13348 U/L (73-393); Potassium 3.3 mmol/L (3.5-5.1); Protein, Total 7.3 g/dL (6.4-8.2); Sodium Level 133 mmol/L (136-145)
[2022-03-20 03:28] LABS: Bacteria 4+ /hpf (None Seen); Red Blood Cells-Urine 5-10 SEEN /hpf (0-5); Squamous Epithelial Cells - UA 0-5 SEEN /hpf (5-10); White Blood Cells >100 SEEN /hpf (0-5)
[2022-03-20 03:36] LABS: Platelet Morphology CLUMPED
--- NOTE | 2022-03-20 04:34 | HP.PCM.HOS_ITS ---
HPI - General General Date of Admission: 03/20/22 Date of Service: 03/20/22 Chief Complaint: Abdominal pain, flank pain, N/V, Fall. HPI Narrative The patient is a 76 y/o F w/ PMHx: Chronic normocytic anemia, Diabetes mellitus type II, HTN, HLD, Hypothyroidism w/ Hx Thyroid tumor requiring resection/debulking in the chest region and thyroidectomy who presents to the [facility] ED on 03/20/22 with onset of epigastric abdominal pain which wraps around bilaterally in the upper quadrants and moves upward into her back with nausea, emesis starting Wednesday on the week of presentation but not improving, noted to be intermittent in nature, desribed as sharp stabbing, rated 10/10 when occurring. Currently in the ED following pain regimen she is rating her pain 7/10 and notes it is improving. She notes normal bowel movements. Work-up in the ED included T97.6, heart rate 86, BP 169/46, respiratory rate 15, 96% on room air, CBC with WC 19.5, hemoglobin 11.6, MCV 88.7, platelet 227 with left shift, CMP with sodium 133, potassium 3.3, glucose 192, T bili 3.90, D bili 2.33, AST/ALT 133/108, alk phos 266, lipase 13,348, urinalysis with positive gravity 1.015, protein 100, glucose 50, ketone 15, occult blood 250, negative nitrite, leukocyte Estrace with 500, urine RBC 5-10, urine WC is greater than 100, 4+ urine bacteria, CT abdomen pelvis with findings consistent with obstruction of the common bile duct secondary common sludge or stones within the common duct measuring 3.6 inches in length x1 cm with, intrahepatic ductal dilatation, extrahepatic ductal dilatation, accompanying pancreatitis and duodenitis as well as mild distal gastritis, mild to moderate constipation, diverticulosis without visualized diverticulitis, as carotic disease, evidence status post tenotomy with mild cardiomegaly, coronary disease, mild left sided small airway peribronchial inflammation. In the ED patient ministered normal saline bolus, Zofran, morphine as well as IV ciprofloxacin. Discussed case with GI who will evaluate patient for ERCP. [facility] Medical History (Updated 03/20/22 @ 05:[address] Jessica Yuan MD) Chronic anemia Diabetes mellitus, type 2 HLD (hyperlipidemia) Hypertension Hypothyroidism Home Medications aspirin 81 mg chewable tablet 81 mg PO DAILY@0800 02/12/17 [History Last Taken Unknown] atorvastatin 40 mg tablet 40 mg PO DAILY 02/12/17 [History Last Taken Unknown] canagliflozin 300 mg tablet 300 mg PO DAILY 02/12/17 [History Last Taken Unknown] chlorthalidone 25 mg tablet 25 mg PO DAILY 02/12/17 [History Last Taken Unknown] levothyroxine 75 mcg tablet 75 mcg PO DAILY 02/12/17 [History Last Taken Unknown] lisinopril 20 mg tablet 20 mg PO DAILY 02/12/17 [History Last Taken Unknown] sitagliptin 50 mg-metformin 1,000 mg tablet 1 ea PO BID 02/12/17 [History Last Taken Unknown] metoprolol succinate 25 mg tablet,extended release 24 hr 25 mg PO DAILY 03/19/20 [History Last Taken Unknown] pioglitazone 30 mg tablet 30 mg PO DAILY 03/19/20 [History Last Taken Unknown] Allergy/AdvReac Type Severity Reaction Status Date / Time Penicillins Allergy Intermediate Hives Verified 10/22/20 13:52 Family History (Updated 03/20/22 @ 04:[address] Jessica Yuan MD) Father Myocardial infarction Hypertension Heart disease Sister Breast cancer Mother CVA (cerebral vascular accident) Surgical History (Updated 03/20/22 @ 05:[address] Jessica Yuan MD) H/O thyroidectomy History of cholecystectomy History of thoracic surgery Hx of appendectomy Social History (Updated 05/28/20 @ 11:[address] Bouchra Ruiz, ) household members: other details: with son Smoking Status: Never smoker alcohol intake: never what type of physical activity do you participate in: none do you feel safe at home: Yes ROS ROS Narrative Admission Review of Systems: CONSTITUTIONAL: No weight loss, fever, chills, + weakness or fatigue. HEENT: Eyes: No visual loss, blurred vision, double vision or yellow sclerae. Ears, Nose, Throat: No hearing loss, sneezing, congestion, runny nose or sore throat. SKIN: No rash or itching, lesions, wounds. CARDIOVASCULAR: No chest pain, chest pressure or chest discomfort, palpitations, edema, orthopnea, syncopal events. RESPIRATORY: No shortness of breath, cough or sputum, wheezing, hemoptysis. GASTROINTESTINAL: + anorexia, nausea, vomiting, abdominal pain, No diarrhea, melena, BRBPR. GENITOURINARY: No dysuria, frequency, urgency or retention. NEUROLOGICAL: No headache, dizziness, syncope, paralysis, ataxia, numbness or tingling in the extremities, focal weakness, change in bowel or bladder control, seizure. MUSCULOSKELETAL: + muscle, back pain, joint pain or stiffness. HEMATOLOGIC: + anemia, bleeding or bruising. LYMPHATICS: No enlarged nodes. No history of splenectomy. PSYCHIATRIC: No history of depression or anxiety. ENDOCRINOLOGIC: No reports of sweating, cold or heat intolerance. No polyuria or polydipsia. ALLERGIES: No history of asthma, hives, eczema or rhinitis. Vital Signs Vital Signs Vital Signs: 03/20/22 02:07 03/20/22 02:14 Temperature 97.6 F L Temperature Source Oral Pulse Rate 86 Respiratory Rate 15 Respiratory Effort Non-Labored Respiratory Pattern Normal Blood Pressure 169/46 H Blood Pressure Mean 87 Pulse Ox 96 Oxygen Delivery Method Room Air Weight Weight: 148 lb 2.41 oz Body Mass Index (BMI) 28.0 Physical Exam Narrative Physical Examination: General: Awake, alert, oriented x 3 and cooperative, laying in the ED bed, fatigued, notes pain improving. Skin: Normal color, normal turgor, no icterus, no cyanosis. HEENT: AT/NC, EOMI, PERRLA, moderately dry MM, poor dentition, no carotid bruits or JVD noted. Lungs: Mild diminished, greater bases, appropriate effort, no rales, ronchi or wheezing. Heart: Currently regular rate and rhythm; no gallop, rub audible. Abdomen: Soft, mild epigastric discomfort with palpation but no rebound or guarding, no marked right upper quadrant discomfort, no marked distention, mildly hyperactive bowel sounds, no obvious HSM. Extremities: No cyanosis, clubbing, or edema. Neurological: Patient awake, alert, oriented as noted, cognitive function intact; pupils equally reactive to light and accommodation, cranial nerves II- XII grossly normal, moving all 4 extremities, no focal deficits, strength mildly to moderately global decreased secondary to acute presentation and complaints. Psychiatric: Affect appears fatigued otherwise normal, no acute evidence of depressive or anxiety feelings. Results Lab / Micro Data Result Diagrams: 03/20/22 03:03 03/20/22 03:03 Labs: Laboratory Results - last 24 hr 03/20/22 03:03: WBC 19.5 H, RBC 3.64 L, Hgb 11.6 L, Hct 32.3 L, MCV 88.7, MCH 31.9, MCHC 35.9, RDW Std Deviation 42.5, RDW Coeff of [place] 13.2, Plt Count 227, MPV 10.6, Immature Gran % (Auto) 1.000 H, Neut % (Auto) 82.7 H, Lymph % (Auto) 9.5 L, [place] % (Auto) 6.0, Eos % (Auto) 0.6, Baso % (Auto) 0.2, Absolute Neuts (auto) 16.2 H, Absolute Lymphs (auto) 1.85, Nucleated RBC % 0, Plt Morphology Comment CLUMPED 03/20/22 03:03: Sodium 133 L, Potassium 3.3 L, Chloride 102, Carbon Dioxide 22.0, Anion Gap 9, BUN 18, Creatinine 0.59, Estim Creat Clear Calc 37.24, Est GFR (MDRD) Af Amer 127, Est GFR (MDRD) Non-Af 105, BUN/Creatinine Ratio 30.4 H, Glucose 192 H, Calcium 9.0, Total Bilirubin 3.90 H, Direct Bilirubin 2.33 H, AST 133 H, ALT 108 H, Alkaline Phosphatase 266 H, Total Protein 7.3, Albumin 2.6 L, Globulin 4.7 H, Lipase 60533 H 03/20/22 03:10: Urine Color Yellow, Urine Clarity Cloudy, Urine pH 6.0, Ur Specific [place] 1.015, Urine Protein 100 H, Urine Glucose (UA) 50 H, Urine Ketones 15 H, Urine Occult Blood 250 H, Urine Nitrite Negative, Urine Bilirubin 3 H, Urine Urobilinogen 12 H, Ur Leukocyte Esterase 500 H, Urine RBC 5-10 SEEN, Urine WBC >100 SEEN, Ur Squamous Epith Cells 0-5 SEEN, Urine Bacteria 4+, Urine Mucus 0 SEEN Radiology Impression Abdomen/Pelvis CT 03/20/22 02:56 IMPRESSION: Findings are are consistent with obstruction of the common duct secondary to a column of sludge or stones within the common duct measuring 3.6 in length x 1.0 cm in width . There is intrahepatic ductal dilatation extrahepatic ductal dilatation. There is accompanying pancreatitis and duodenitis and mild distal gastritis. Further evaluation is recommended with ERCP and/or MRCP. The gallbladder is not visualized and may have been surgically removed. Mild to moderate constipation diverticulosis and diverticulitis. Atherosclerotic disease of the aorta including fairly dense calcification of the tic of the bilateral renal arteries. Status post sternotomy. Mild cardiomegaly coronary artery disease. There is mild left-sided small airways peribronchial inflammation for which mild bronchiolitis could be considered. N.B. : The above Results were Read Back by Chitra Hurt MD to Eber Robles MD, and understanding confirmed on 03/20/2022 04:19:30 (ET). Electronically Signed: Chitra Hurt MD at 4:21 EDT , ADDENDUM: 03/20/22 0428 IMPRESSION: Findings are are consistent with obstruction of the common duct secondary to a column of sludge or stones within the common duct measuring 3.6 in length x 1.0 cm in width . There is intrahepatic ductal dilatation extrahepatic ductal dilatation. There is accompanying pancreatitis and duodenitis and mild distal gastritis. Further evaluation is recommended with ERCP and/or MRCP. The gallbladder is not visualized and may have been surgically removed. Mild to moderate constipation diverticulosis and diverticulitis. Atherosclerotic disease of the aorta including fairly dense calcification of the tic of the bilateral renal arteries. Status post sternotomy. Mild cardiomegaly coronary artery disease. There is mild left-sided small airways peribronchial inflammation for which mild bronchiolitis could be considered. N.B. : The above Results were Read Back by Chitra Hurt MD to Eber Robles MD, and understanding confirmed on 03/20/2022 04:19:30 (ET). Electronically Signed: Chitra Hurt MD at 4:21 EDT , Assessment & Plan Assessment/Plan (1) Pancreatitis: (2) Choledocholithiasis: PLAN: Plan The patient is a 76 y/o F w/ PMHx: Chronic normocytic anemia, Diabetes mellitus type II, HTN, HLD, Hypothyroidism w/ Hx Thyroid tumor requiring resection/debulking in the chest region and thyroidectomy who presents to the [facility] ED on 03/20/22 with onset of epigastric abdominal pain which wraps around bilaterally in the upper quadrants and moves upward into her back with nausea, emesis starting Wednesday on the week of presentation but not improving, noted to be intermittent in nature, described as sharp stabbing, rated 10/10 when occurring. Currently in the ED following pain regimen she is rating her pain 7/ 10 and notes it is improving. #1. Acute pancreatitis w/ abdominal pain, N/V with choledocholithiasis with elevated bilirubin, LFTs with associated duodenitis, possible distal gastritis concurrently: Will admit to medical surgical floor, maintain on IVFs, NPO, PPI, IV/po pain control, trend lipase, CMP, will continue gastroenterology consultation for consideration ERCP. FLP requested. As needed pain regimen as well as antiemetic regimen. #2. Acute Complicated Urinary Tract Infection: UA upon ED evaluation remarkable, pending UCx, continue IVFs, monitor I/Os, continue IV cipro given allergy history w/ transition as able pending sensitivities and speciation. #3. Hypokalemia: Admission K+ 3.3, magnesium level requested, supplementation given, repeat level in AM. #4. Diabetes mellitus type II: Hold oral home regimen, NPO status given acute presentation, accu checks w/ ISS. #5. Chronic normocytic anemia: Admission hemoglobin 11.6, baseline prior primarily 10-11, stable, trend. #6. History of Thyroid Tumor: Significant tumor burden even down in the chest requiring significant tumor debulking coupled with thyroidectomy. #7. Hypertension: Continue home regimen including lisinopril, metoprolol, chlorthalidone with hold parameters as needed, PRN hydralazine. #8. Hyperlipidemia: We will temporarily hold given elevated bilirubin, LFTs, add back once improved. #9. Hypothyroidism: Continue home synthroid regimen. #10. DVT prophylaxis: SCDs, hold chemoprophylaxis for ERCP. #11. CODE status: Patient does not have healthcare power of banking attorney nor living will in place. Discussed CODE status at length including difference between FULL code, DNR-CCA and DNR-CC status. Following discussions about the differences in these status, requested Full Code status. Advanced Care Planning Face to Face Time: 16 minutes. Charges/Coding Visit Charges Inpatient E&M: 21595 Init Hosp L3 Procedures Hospitalists Procedures: 56574 Advncd Care Plan 30 Min
[2022-03-20] MEDS: Ciprofloxacin 400 MG/200 ML BAG 200 MG IV ×2 (04:49→22:33)
--- NOTE | 2022-03-20 05:49 | EX.ED.DYSGE1 ---
HPI History of Present Illness Chief Complaint: General Illness Narrative Narrative: Patient is a 76-year-old female with past medical history of hyperlipidemia non-STEMI and past surgical history of cholecystectomy and appendectomy as well as previous thyroid cancer requiring surgical removal. She states that on Wednesday she began with abdominal pain which she states starts in the right upper quadrant and wraps around the abdomen to the left and upper back. She states with this she has been experiencing nausea and vomiting. She denies any known sick contacts and denies any dysuria or diarrhea. She also denies any fevers or chills. She states that she was scheduled to see her doctor yesterday but she felt like her symptoms are worsening and could not make it to that appointment. She states as time is past she is continue to feel abdominal pain and had persistent vomiting and therefore comes in for evaluation [facility] Medical History (Updated 03/20/22 @ 05:[address] Eber Robles DO) Chronic anemia Diabetes mellitus, type 2 HLD (hyperlipidemia) Hypertension Hypothyroidism Home Medications aspirin 81 mg chewable tablet 81 mg PO DAILY@0800 02/12/17 [History Last Taken Unknown] atorvastatin 40 mg tablet 40 mg PO DAILY 02/12/17 [History Last Taken Unknown] canagliflozin 300 mg tablet 300 mg PO DAILY 02/12/17 [History Last Taken Unknown] chlorthalidone 25 mg tablet 25 mg PO DAILY 02/12/17 [History Last Taken Unknown] levothyroxine 75 mcg tablet 75 mcg PO DAILY 02/12/17 [History Last Taken Unknown] lisinopril 20 mg tablet 20 mg PO DAILY 02/12/17 [History Last Taken Unknown] sitagliptin 50 mg-metformin 1,000 mg tablet 1 ea PO BID 02/12/17 [History Last Taken Unknown] metoprolol succinate 25 mg tablet,extended release 24 hr 25 mg PO DAILY 03/19/20 [History Last Taken Unknown] pioglitazone 30 mg tablet 30 mg PO DAILY 03/19/20 [History Last Taken Unknown] Allergy/AdvReac Type Severity Reaction Status Date / Time Penicillins Allergy Intermediate Hives Verified 10/22/20 13:52 Family History (Updated 03/20/22 @ 04:[address] Jessica Yuan MD) Father Myocardial infarction Hypertension Heart disease Sister Breast cancer Mother CVA (cerebral vascular accident) Surgical History (Updated 03/20/22 @ 05:[address] Jessica Yuan MD) H/O thyroidectomy History of cholecystectomy History of thoracic surgery Hx of appendectomy Social History (Updated 05/28/20 @ 11:[address] Bouchra Ruiz, DO) household members: other details: with son Smoking Status: Never smoker alcohol intake: never what type of physical activity do you participate in: none do you feel safe at home: Yes ROS ROS ED Constitutional Constitutional ED: Denies chills or fever(s) ENT ENT ED: Denies sore throat Cardiovascular Cardiovascular: Denies chest pain Respiratory/Chest Respiratory/Chest: Denies cough or dyspnea Gastrointestinal Gastrointestinal: Reports abdominal pain, nausea and vomiting; Denies diarrhea Genitourinary Genitourinary ED: Denies dysuria Musculoskeletal Musculoskeletal: Reports back pain; Denies myalgias Integumentary Denies rash Neurologic Neurologic: Denies headache(s) Hematologic/Lymphatic Hematologic/Lymphatic: Denies easy bleeding or easy bruising EXAM Physical Exam Const Vital Signs: 03/20/22 02:07 03/20/22 02:14 Temperature 97.6 F L Temperature Source Oral Pulse Rate 86 Respiratory Rate 15 Respiratory Effort Non-Labored Respiratory Pattern Normal Blood Pressure 169/46 H Blood Pressure Mean 87 Pulse Ox 96 Oxygen Delivery Method Room Air Positive well nourished and well developed General Appearance ED: well developed HEENT Reports dry mucous membranes Mouth ED: Yes dry mucous membranes Mouth: dry mucous membranes Eyes PERRL and EOMs intact bilaterally General Eye ED: Negative for scleral icterus Neck supple Chest Wall palpation of chest normal Resp normal respiratory effort and clear to auscultation bilaterally Cardio regular rate and regular rhythm Rate: other Other Details: Radial pulses are plus 2 out of 4 bilaterally are equal and symmetric GI non-distended GI Narrative: Abdomen is soft and nondistended with normoactive bowel sounds. There is pain with palpation diffusely in the upper abdomen without voluntary guarding or rigidity. No pulsatile mass Auscultation: normoactive bowel sounds Palpation: soft Back/Spine no CVA tenderness Extremity normal to inspection Neuro oriented x3 and CN's II-XII intact bilaterally Sensorium / Orientation: alert Psych mental status grossly normal Skin no rashes or lesions noted General Skin Exam: Negative for jaundice MDM MDM MDM Narrative Medical decision making narrative: Patient presented to the ER afebrile and had a nonsurgical abdomen. However based on her age and the fact that symptoms have been persistent for a few days I elected perform basic laboratory studies with CT scan. White blood cell count is elevated 19.5 which could be related to underlying infection or stress response from the vomiting. Kidney function is normal but her liver enzymes are elevated as well as lipase concerning for possible common bile duct obstruction and pancreatitis as she has had her gallbladder previously removed. CT scan did confirm distention of the common bile duct as well as inflammation around the pancreas. Patient's urine sample also showed infection and was therefore sent for culture and she was given Cipro which could cover possible intestinal infection as well as UTI. At this time the patient will most likely require an ERCP and therefore GI was contacted and will see the patient in the hospital. Therefore patient will be admitted for further care Lab Data Attestation: I reviewed the patient's lab results. Labs: Laboratory Results - last 24 hr 03/20/22 03/20/22 03/20/22 03:03 03:03 03:03 WBC 19.5 H RBC 3.64 L Hgb 11.6 L Hct 32.3 L MCV 88.7 MCH 31.9 MCHC 35.9 RDW Std Deviation 42.5 RDW Coeff of [place] 13.2 Plt Count 227 MPV 10.6 Immature Gran % (Auto) 1.000 H Neut % (Auto) 82.7 H Lymph % (Auto) 9.5 L [place] % (Auto) 6.0 Eos % (Auto) 0.6 Baso % (Auto) 0.2 Absolute Neuts (auto) 16.2 H Absolute Lymphs (auto) 1.85 Nucleated RBC % 0 Plt Morphology Comment CLUMPED Sodium 133 L Potassium 3.3 L Chloride 102 Carbon Dioxide 22.0 Anion Gap 9 BUN 18 Creatinine 0.59 Estim Creat Clear Calc 37.24 Est GFR (MDRD) Af Amer 127 Est GFR (MDRD) Non-Af 105 BUN/Creatinine Ratio 30.4 H Glucose 192 H Calcium 9.0 Magnesium 2.0 Total Bilirubin 3.90 H Direct Bilirubin 2.33 H AST 133 H ALT 108 H Alkaline Phosphatase 266 H Total Protein 7.3 Albumin 2.6 L Globulin 4.7 H Lipase 40102 H Urine Color Urine Clarity Urine pH Ur Specific [place] Urine Protein Urine Glucose (UA) Urine Ketones Urine Occult Blood Urine Nitrite Urine Bilirubin Urine Urobilinogen Ur Leukocyte Esterase Urine RBC Urine WBC Ur Squamous Epith Cells Urine Bacteria Urine Mucus 03/20/22 03:10 WBC RBC Hgb Hct MCV MCH MCHC RDW Std Deviation RDW Coeff of [place] Plt Count MPV Immature Gran % (Auto) Neut % (Auto) Lymph % (Auto) [place] % (Auto) Eos % (Auto) Baso % (Auto) Absolute Neuts (auto) Absolute Lymphs (auto) Nucleated RBC % Plt Morphology Comment Sodium Potassium Chloride Carbon Dioxide Anion Gap BUN Creatinine Estim Creat Clear Calc Est GFR (MDRD) Af Amer Est GFR (MDRD) Non-Af BUN/Creatinine Ratio Glucose Calcium Magnesium Total Bilirubin Direct Bilirubin AST ALT Alkaline Phosphatase Total Protein Albumin Globulin Lipase Urine Color Yellow Urine Clarity Cloudy Urine pH 6.0 Ur Specific [place] 1.015 Urine Protein 100 H Urine Glucose (UA) 50 H Urine Ketones 15 H Urine Occult Blood 250 H Urine Nitrite Negative Urine Bilirubin 3 H Urine Urobilinogen 12 H Ur Leukocyte Esterase 500 H Urine RBC 5-10 SEEN Urine WBC >100 SEEN Ur Squamous Epith Cells 0-5 SEEN Urine Bacteria 4+ Urine Mucus 0 SEEN Radiography Diagnostic Testing: Clinical Impression(s) from Imaging Studies Abdomen/Pelvis CT 03/20/22 02:56 IMPRESSION: Findings are are consistent with obstruction of the common duct secondary to a column of sludge or stones within the common duct measuring 3.6 in length x 1.0 cm in width . There is intrahepatic ductal dilatation extrahepatic ductal dilatation. There is accompanying pancreatitis and duodenitis and mild distal gastritis. Further evaluation is recommended with ERCP and/or MRCP. The gallbladder is not visualized and may have been surgically removed. Mild to moderate constipation diverticulosis and diverticulitis. Atherosclerotic disease of the aorta including fairly dense calcification of the tic of the bilateral renal arteries. Status post sternotomy. Mild cardiomegaly coronary artery disease. There is mild left-sided small airways peribronchial inflammation for which mild bronchiolitis could be considered. N.B. : The above Results were Read Back by Chitra Hurt MD to Eber Robles MD, and understanding confirmed on 03/20/2022 04:19:30 (ET). Electronically Signed: Chitra Hurt MD at 4:21 EDT Reading Location ID and State: [facility] / [place] Tel , Service support , ADDENDUM: 03/20/22 0428 IMPRESSION: Findings are are consistent with obstruction of the common duct secondary to a column of sludge or stones within the common duct measuring 3.6 in length x 1.0 cm in width . There is intrahepatic ductal dilatation extrahepatic ductal dilatation. There is accompanying pancreatitis and duodenitis and mild distal gastritis. Further evaluation is recommended with ERCP and/or MRCP. The gallbladder is not visualized and may have been surgically removed. Mild to moderate constipation diverticulosis and diverticulitis. Atherosclerotic disease of the aorta including fairly dense calcification of the tic of the bilateral renal arteries. Status post sternotomy. Mild cardiomegaly coronary artery disease. There is mild left-sided small airways peribronchial inflammation for which mild bronchiolitis could be considered. N.B. : The above Results were Read Back by Chitra Hurt MD to Eber Robles MD, and understanding confirmed on 03/20/2022 04:19:30 (ET). Electronically Signed: Chitra Hurt MD at 4:21 EDT Reading Location ID and State: [facility] / [place] Tel , Service support , Discharge Plan Dx/Rx/DC Orders Clinical Impression: Acute gallstone pancreatitis, UTI (urinary tract infection) Disposition Disposition: Acute Care [facility]
[2022-03-20] MEDS: 0.9% Normal Saline 1,000 ML 150 ML IV ×3 (08:04→23:30)
[2022-03-20] MEDS: Potassium Chloride Oral Tablet 20 MEQ 40 MEQ PO (08:04)
[2022-03-20 08:15] LABS: Bedside Glucose 211 mg/dL (74-106)
--- NOTE | 2022-03-20 10:15 | NURSING ---
Patient off unit for ERCP
--- NOTE | 2022-03-20 10:19 | EKG12_ITS ---
Test Reason : PRE-OP Blood Pressure : / mmHG Vent. Rate : 071 BPM Atrial Rate : 071 BPM P-R Int : 196 ms QRS Dur : 084 ms QT Int : 410 ms P-R-T Axes : 071 -08 033 degrees QTc Int : 445 ms Normal sinus rhythm Normal ECG When compared with ECG of 12-FEB-2017 15:13, Premature atrial complexes are no longer Present Vent. rate has decreased BY 40 BPM Confirmed by RENEE ALFARO, JESUS ([id number]), associate editor PUNEET DYSON ([id number]) on 03/24/2022 10:20:42 AM Referred By: FRIEND Confirmed By:JESUS DURAN MD
[2022-03-20 10:47] LABS: Hemoglobin A1c 6.7 % (3.8-5.6)
[2022-03-20 10:54] LABS: Thyroid Stim Hormone (TSH) 7.14 uIU/mL (0.358-3.74)
--- NOTE | 2022-03-20 11:00 | CASEMGMT ---
RN CM in to pt room, pt is off the floor at this time. RN CM to perform assessment at a later time.
--- NOTE | 2022-03-20 11:02 | RAD_ITS ---
STUDY: ERCP. REASON FOR EXAM: Female, 76 years old. Choledocholithiasis. FLUOROSCOPY TIME (if supplied): ( 2 minutes and 26 seconds ) minutes/seconds. 16 images were submitted. TECHNIQUE: An ERCP was performed by the cpr instructor. COMPARISON: None. FINDINGS: There is dilatation of the intrahepatic biliary ducts as well as the common bile duct. Multiple filling defects are seen within the common bile duct. There has been a balloon retrieval of the stones. RAD/ERCP Biliary/Pancreas IMPRESSION: Dilated intra and extra hepatic biliary ducts with retrieval. Of the stones. Electronically Signed: Vimal Dodd MD at 14:00 EDT ,
--- NOTE | 2022-03-20 11:04 | CON.PCM_ITS ---
Assessment & Plan Assessment/Plan (1) Choledocholithiasis: PLAN: She will need ago and ERCP with removal of stone from the distal common bile duct causing pancreatitis. She was explained alternatives, risk, benefits including not withstanding bleeding, infection, sepsis, perforation, need for emergent surgery. She will have an ASA of 3. (2) Pancreatitis: PLAN: Continue aggressive IV fluid administration with normal saline at 250 cc an hour. HPI Consult Data Date of Consult: 03/20/22 Attending Care Provider: pancreatitis and obstructive jaundice HPI Narrative Reason for Consultation: obstructive jaundice HPI Narrative: SHASHI OSWALD, is a 76-year-old female with past medical history of hyperlipidemia non-STEMI and past surgical history of cholecystectomy and appendectomy as well as previous thyroid cancer requiring surgical removal.? She states that on Wednesday she began with abdominal pain which she states starts in the right upper quadrant and wraps around the abdomen to the left and upper back.? She states with this she has been experiencing nausea and vomiting.? She denies any known sick contacts and denies any dysuria or diarrhea.? She also denies any fevers or chills.? She states that she was scheduled to see her doctor yesterday but she felt like her symptoms are worsening and could not make it to that appointment.? She states as time is past she is continue to feel abdominal pain and had persistent vomiting and therefore comes in for evaluation. ?CBC with WC 19.5, hemoglobin 11.6, MCV 88.7, platelet 227 with left shift, CMP with sodium 133, potassium 3.3, glucose 192, T bili 3.90, D bili 2.33, AST/ALT 133/108, alk phos 266, lipase 13,348, urinalysis with positive gravity 1.015, protein 100, glucose 50, ketone 15, occult blood 250, negative nitrite, leuko cyte Estrace with 500, urine RBC 5-10, urine WC is greater than 100, 4+ urine bacteria, CT abdomen pelvis with findings consistent with obstruction of the common bile duct secondary common sludge or stones within the common duct measuring 3.6 inches in length x1 cm with, intrahepatic ductal dilatation, extrahepatic ductal dilatation, accompanying pancreatitis and duodenitis as well as mild distal gastritis. COUNT INCLUDES THE [facility] Medical History (Updated 03/20/22 @ 06:41 by Esrtellita Blackwell) Asthma Chronic anemia Diabetes mellitus, type 2 High cholesterol HLD (hyperlipidemia) Hypertension Hypothyroidism Home Medications aspirin 81 mg chewable tablet 81 mg PO DAILY@0800 Check with primary doctor 01/22 11/06 [History Last Taken Unknown] atorvastatin 40 mg tablet 40 mg PO DAILY Check with primary doctor 02/12/17 [History Last Taken Unknown] canagliflozin 300 mg tablet 300 mg PO DAILY Check with primary doctor 02/12/17 [History Last Taken Unknown] chlorthalidone 25 mg tablet 25 mg PO DAILY Check with primary doctor 02/12/17 [History Last Taken Unknown] levothyroxine 75 mcg tablet 75 mcg PO DAILY 02/12/17 [History Last Taken Unknown] lisinopril 20 mg tablet 20 mg PO DAILY 02/12/17 [History Last Taken Unknown] sitagliptin 50 mg-metformin 1,000 mg tablet 1 ea PO BID Check with primary doctor 02/12/17 [History Last Taken Unknown] metoprolol succinate 25 mg tablet,extended release 24 hr 25 mg PO DAILY Check with primary doctor 03/19/20 [History Last Taken Unknown] pioglitazone 30 mg tablet 30 mg PO DAILY Check with primary doctor 03/19/20 [History Last Taken Unknown] Allergy/AdvReac Type Severity Reaction Status Date / Time Penicillins Allergy Intermediate Hives Verified 10/22/20 13:52 Family History (Updated 03/20/22 @ 04:[address] Jessica Yuan MD) Father Myocardial infarction Hypertension Heart disease Sister Breast cancer Mother CVA (cerebral vascular accident) Surgical History (Updated 03/20/22 @ 06:41 by Estrellita Blackwell) H/O thyroidectomy History of cholecystectomy History of thoracic surgery Hx of appendectomy S/P tubal ligation Social History (Updated 05/28/20 @ 11:[address] Bouchra Ruiz, ) household members: other details: with son Smoking Status: Never smoker alcohol intake: never what type of physical activity do you participate in: none do you feel safe at home: Yes ROS ROS Narrative Admission Review of Systems: CONSTITUTIONAL: No weight loss, fever, chills, + weakness or fatigue. HEENT: Eyes: No visual loss, blurred vision, double vision or yellow sclerae. Ears, Nose, Throat: No hearing loss, sneezing, congestion, runny nose or sore throat. SKIN: No rash or itching, lesions, wounds. CARDIOVASCULAR: No chest pain, chest pressure or chest discomfort, palpitations, edema, orthopnea, syncopal events. RESPIRATORY: No shortness of breath, cough or sputum, wheezing, hemoptysis. GASTROINTESTINAL: + anorexia, nausea, vomiting, abdominal pain, No diarrhea, melena, BRBPR. GENITOURINARY: No dysuria, frequency, urgency or retention. NEUROLOGICAL: No headache, dizziness, syncope, paralysis, ataxia, numbness or tingling in the extremities, focal weakness, change in bowel or bladder control, seizure. MUSCULOSKELETAL: + muscle, back pain, joint pain or stiffness. HEMATOLOGIC: + anemia, bleeding or bruising. LYMPHATICS: No enlarged nodes. No history of splenectomy. PSYCHIATRIC: No history of depression or anxiety. ENDOCRINOLOGIC: No reports of sweating, cold or heat intolerance. No polyuria or polydipsia. ALLERGIES: No history of asthma, hives, eczema or rhinitis. Physical Exam Narrative Physical Examination: General: Awake, alert, oriented x 3 and cooperative, laying in the ED bed, fati gued, notes pain improving. Skin: Normal color, normal turgor, no icterus, no cyanosis. HEENT: AT/NC, EOMI, PERRLA, moderately dry MM, poor dentition, no carotid bruits or JVD noted. Lungs: Mild diminished, greater bases, appropriate effort, no rales, ronchi or wheezing. Heart: Currently regular rate and rhythm; no gallop, rub audible. Abdomen: Soft, mild epigastric discomfort with palpation but no rebound or guarding, no marked right upper quadrant discomfort, no marked distention, mildly hyperactive bowel sounds, no obvious HSM. Extremities: No cyanosis, clubbing, or edema. Neurological: Patient awake, alert, oriented as noted, cognitive function intact; pupils equally reactive to light and accommodation, cranial nerves II- XII grossly normal, moving all 4 extremities, no focal deficits, strength mildly to moderately global decreased secondary to acute presentation and complaints. Psychiatric: Affect appears fatigued otherwise normal, no acute evidence of depressive or anxiety feelings. Lab / Micro Data Result Diagrams: 03/20/22 03:03 03/20/22 03:03 Labs: Laboratory Results - last 24 hr 03/20/22 03:03: WBC 19.5 H, RBC 3.64 L, Hgb 11.6 L, Hct 32.3 L, MCV 88.7, MCH 31.9, MCHC 35.9, RDW Std Deviation 42.5, RDW Coeff of [place] 13.2, Plt Count 227, MPV 10.6, Immature Gran % (Auto) 1.000 H, Neut % (Auto) 82.7 H, Lymph % (Auto) 9.5 L, [place] % (Auto) 6.0, Eos % (Auto) 0.6, Baso % (Auto) 0.2, Absolute Neuts (auto) 16.2 H, Absolute Lymphs (auto) 1.85, Nucleated RBC % 0, Plt Morphology Comment CLUMPED 03/20/22 03:03: Sodium 133 L, Potassium 3.3 L, Chloride 102, Carbon Dioxide 22.0, Anion Gap 9, BUN 18, Creatinine 0.59, Estim Creat Clear Calc 37.24, Est GFR (MDRD) Af Amer 127, Est GFR (MDRD) Non-Af 105, BUN/Creatinine Ratio 30.4 H, Glucose 192 H, Calcium 9.0, Total Bilirubin 3.90 H, Direct Bilirubin 2.33 H, AST 133 H, ALT 108 H, Alkaline Phosphatase 266 H, Total Protein 7.3, Albumin 2.6 L, Globulin 4.7 H, Lipase 10525 H 03/20/22 03:03: Magnesium 2.0 03/20/22 03:03: TSH 7.14 H 03/20/22 03:03: Hemoglobin A1c 6.7 H 03/20/22 03:10: Urine Color Yellow, Urine Clarity Cloudy, Urine pH 6.0, Ur Specific [place] 1.015, Urine Protein 100 H, Urine Glucose (UA) 50 H, Urine Ketones 15 H, Urine Occult Blood 250 H, Urine Nitrite Negative, Urine Bilirubin 3 H, Urine Urobilinogen 12 H, Ur Leukocyte Esterase 500 H, Urine RBC 5-10 SEEN, Urine WBC >100 SEEN, Ur Squamous Epith Cells 0-5 SEEN, Urine Bacteria 4+, Urine Mucus 0 SEEN 03/20/22 07:57: POC Glucose 211 H Radiology Impression Abdomen/Pelvis CT 03/20/22 02:56 IMPRESSION: Findings are are consistent with obstruction of the common duct secondary to a column of sludge or stones within the common duct measuring 3.6 in length x 1.0 cm in width . There is intrahepatic ductal dilatation extrahepatic ductal dilatation. There is accompanying pancreatitis and duodenitis and mild distal gastritis. Further evaluation is recommended with ERCP and/or MRCP. The gallbladder is not visualized and may have been surgically removed. Mild to moderate constipation diverticulosis and diverticulitis. Atherosclerotic disease of the aorta including fairly dense calcification of the tic of the bilateral renal arteries. Status post sternotomy. Mild cardiomegaly coronary artery disease. There is mild left-sided small airways peribronchial inflammation for which mild bronchiolitis could be considered. N.B. : The above Results were Read Back by Chitra Hurt MD to Eber Robles MD, and understanding confirmed on 03/20/2022 04:19:30 (ET). Electronically Signed: Chitra Hurt MD at 4:21 EDT , ADDENDUM: 03/20/22 0428 IMPRESSION: Findings are are consistent with obstruction of the common duct secondary to a column of sludge or stones within the common duct measuring 3.6 in length x 1.0 cm in width . There is intrahepatic ductal dilatation extrahepatic ductal dilatation. There is accompanying pancreatitis and duodenitis and mild distal gastritis. Further evaluation is recommended with ERCP and/or MRCP. The gallbladder is not visualized and may have been surgically removed. Mild to moderate constipation diverticulosis and diverticulitis. Atherosclerotic disease of the aorta including fairly dense calcification of the tic of the bilateral renal arteries. Status post sternotomy. Mild cardiomegaly coronary artery disease. There is mild left-sided small airways peribronchial inflammation for which mild bronchiolitis could be considered. N.B. : The above Results were Read Back by Chitra Hurt MD to Eber Robles MD, and understanding confirmed on 03/20/2022 04:19:30 (ET). Electronically Signed: Chitra Hurt MD at 4:21 EDT , Charges/Coding Visit Charges Inpatient E&M: 59506 Init Hosp L2
--- NOTE | 2022-03-20 12:22 | OP.ERCP_ITS ---
Patient Name: Heather Landry Procedure Date: 03/20/2022 10:54 AM Date of : 1945 Age: 76 Procedure: ERCP Indications: Suspected ascending cholangitis, Jaundice Providers: Antony Tran DO Medicines: General Anesthesia Patient Profile: This is a 76 year old female. Refer to note in patient chart for documentation of history and physical. Patient has symptoms of acute epigastric abdominal pain. Complications: No immediate complications. Procedure: Pre-Anesthesia Assessment: - Prior to the procedure, a History and Physical was performed, and patient medications and allergies were reviewed. The patient is competent. The risks and benefits of the procedure and the sedation options and risks were discussed with the patient. All questions were answered and informed consent was obtained. Patient identification and proposed procedure were verified. Mental Status Examination: alert and oriented. Airway Examination: normal oropharyngeal airway and neck mobility. Respiratory Examination: clear to auscultation. CV Examination: normal. Prophylactic Antibiotics: The patient does not require prophylactic antibiotics. Prior Anticoagulants: The patient has taken no previous anticoagulant or antiplatelet agents. After reviewing the risks and benefits, the patient was deemed in satisfactory condition to undergo the procedure. The anesthesia plan was to use minimal sedation / analgesia (anxiolysis). Immediately prior to administration of medications, the patient was re-assessed for adequacy to receive sedatives. The heart rate, respiratory rate, oxygen saturations, blood pressure, adequacy of pulmonary ventilation, and response to care were monitored throughout the procedure. The physical status of the patient was re-assessed after the procedure. After obtaining informed consent, the scope was passed under direct vision. Throughout the procedure, the patient's blood pressure, pulse, and oxygen saturations were monitored continuously. The Duodenoscope was introduced through the mouth, and advanced to the duodenum and used to inject contrast into the bile duct. The ERCP was accomplished without difficulty. The patient tolerated the procedure well. Scope In: 11:24:31 AM Scope Out: 12:11:54 PM Total Procedure Duration Time 0 hours 47 minutes 23 seconds Findings: The dextrine mixer film was normal. The esophagus was successfully intubated under direct vision. The scope was advanced to a normal major papilla in the descending duodenum without detailed examination of the pharynx, larynx and associated structures, and upper GI tract. The upper GI tract was grossly normal. The bile duct was deeply cannulated with the short-nosed traction sphincterotome. Contrast was injected. I personally interpreted the bile duct images. There was brisk flow of contrast through the ducts. Opacification of the entire opacified area and main bile duct was successful. The maximum diameter of the ducts was 7 mm. The middle third of the main bile duct and upper third of the main bile duct contained multiple stones, the largest of which was 6 mm in diameter. The main bile duct was markedly dilated, with a stone causing an obstruction. The largest diameter was 18 mm. A straight Roadrunner wire was passed into the biliary tree. A 5 mm biliary sphincterotomy was made with a traction (standard) sphincterotome using ERBE electrocautery. There was no post-sphincterotomy bleeding. The biliary tree was swept with a 15 mm balloon starting at the bifurcation. Sludge was swept from the duct. All stones were removed. Dilation of the common bile duct with a 6-7-8 mm balloon (to a maximum balloon size of 8 mm) dilator was successful. Two 10 Fr by 9 cm temporary stents were placed 5 cm into the common bile duct. Bile flowed through the stents. The stents were in good position. One 7 Fr by 12 cm temporary stent was placed 5 cm into the common bile duct. Bile flowed through the stent. The stent was in good position. Impression: - The entire main bile duct was markedly dilated, with a stone causing an obstruction. - Choledocholithiasis was found. Complete removal was accomplished by biliary sphincterotomy and balloon extraction. - A biliary sphincterotomy was performed. - The biliary tree was swept. - Common bile duct was successfully dilated. - Two temporary stents were placed into the common bile duct. - One temporary stent was placed into the common bile duct. Procedure Code(s): --- Professional --- 90866, Endoscopic retrograde cholangiopancreatography (ERCP); with placement of endoscopic stent into biliary or pancreatic duct, including pre- and post-dilation and guide wire passage, when performed, including sphincterotomy, when performed, each stent [id number], 59, Endoscopic retrograde cholangiopancreatography (ERCP); with placement of endoscopic stent into biliary or pancreatic duct, including pre- and post-dilation and guide wire passage, when performed, including sphincterotomy, when performed, each stent [id number], 59, Endoscopic retrograde cholangiopancreatography (ERCP); with placement of endoscopic stent into biliary or pancreatic duct, including pre- and post-dilation and guide wire passage, when performed, including sphincterotomy, when performed, each stent [id number], Endoscopic retrograde cholangiopancreatography (ERCP); with removal of calculi/debris from biliary/pancreatic duct(s) 48781, 26, Endoscopic catheterization of the biliary ductal system, radiological supervision and interpretation CPT copyright 2017 [employer]. All rights reserved. The codes documented in this report are preliminary and upon tong hooker review may be revised to meet current compliance requirements. Antony Tran DO 03/20/2022 12:21:45 PM This report has been signed electronically. Number of Addenda: 0 Note Initiated On: 03/20/2022 10:54 AM
--- NOTE | 2022-03-20 12:23 | OP.CCLET_ITS ---
03/20/2022 Candelario Santana MD [address] [place] [address] Re : ERCP procedure for Heather Landry Dear Dr. Santana This procedure was performed on Sunday, March 20, 2022. My impressions and recommendations are as follows: Impressions : - The entire main bile duct was markedly dilated, with a stone causing an obstruction. - Choledocholithiasis was found. Complete removal was accomplished by biliary sphincterotomy and balloon extraction. - A biliary sphincterotomy was performed. - The biliary tree was swept. - Common bile duct was successfully dilated. - Two temporary stents were placed into the common bile duct. - One temporary stent was placed into the common bile duct. Recommendations : My findings are described in the full procedure note, which is enclosed. If I can be of further assistance, please feel free to contact me at . Sincerely, Antony Tran, 03/20/2022 12:21:45 PM This report has been signed electronically.
--- NOTE | 2022-03-20 14:05 | CASEMGMT ---
ELLA CHRISTIANSON Assessment: Face to Face with pt for initial transition planning/care coordination assessment. ELLA CHRISTIANSON introduced self and role at [facility], pt voices understanding and consents to assessment. Pt is A/O x4 and answers all questions appropriately at this time. Pt lying in bed in no distress with son at bedside. Care providers, pharmacy, and demographics verified/updated. Admitting Dx: acute choledocholithiasis, acute pancreatitis PCP: [facility]:Pt denies. Preferred Pharmacy: [facility] Insurance: [employer] [facility] Prescription Benefit: yes LW/HPOA: Pt denies having a LW/DPOA and denies need for info regarding AD. LNOK: Stoney Landry, son Living Arrangements: Pt lives with son in a single story house with 3 steps to enter with a rail. Pt reports she is I in ADL's and denies no concerns at home. Transportation: Pt does not drive. Pt son transports her to medical appts. DME/HHC/SNF: Pt states she does not have BGM and has never been told to check her blood sugars. She states she does have a 4 prong cane that she uses. She also has a FWW but does not use. Pt has grab bars in the bathroom as well as a shower chair. Pt denies previous HHC or SNF stays. Pt states no concerns with going home at time of dc. Pt son agrees. Pt states she feels that her strength is good. Pt states no further concerns/needs. CM to follow. Advised pt to ask CM if any further question/concerns/needs arise, voices understanding. Pt Goal: Home Plan: Home
[2022-03-20 14:30] LABS: Bedside Glucose 152 mg/dL (74-106)
[2022-03-20] MEDS: Insulin Lispro 100 UNIT/ML INSULN.PEN SC (18:02)
--- NOTE | 2022-03-20 18:11 | PCM.HOSP.N ---
Hospitalist Note Patient was seen and examined this morning before her ERCP was performed, patient appeared to be tender over the right upper quadrant on palpation, she was alert and did not appear to be in any distress. Heart rate and rhythm is regular, lungs were clear, patient was alert and appropriate, she was oriented x3. Patient underwent an ERCP today which revealed a stone obstructing the main bile duct, complete removal was accomplished by biliary sphincterotomy and balloon extraction. Temporary stents were placed into the common bile duct and the pancreatic duct.
[2022-03-20 18:26] LABS: Bedside Glucose 332 mg/dL (74-106)
[2022-03-21] MEDS: Insulin Lispro 100 UNIT/ML INSULN.PEN SC ×2 (00:22→06:11)
[2022-03-21 00:45] LABS: Bedside Glucose 335 mg/dL (74-106)
[2022-03-21 02:35] VITALS: BP 127/74; PULSE 68; RESP 20; TEMP 36.8; O2SAT 99
[2022-03-21] MEDS: 0.9% Normal Saline 1,000 ML 150 ML IV (06:11)
[2022-03-21] MEDS: Levothyroxine 75 MCG Tablet PO (06:12)
[2022-03-21 06:24] VITALS: BP 143/77; PULSE 70; RESP 18; TEMP 36.8; O2SAT 98
[2022-03-21 06:35] LABS: Bedside Glucose 172 mg/dL (74-106)
[2022-03-21 07:16] LABS: Absolute Lymphocyte Count 1.58 X10^3/uL (0.83-4.51); Absolute Neutrophil Count 8.6 X10^3/uL (2.0-7.7); Basophil# 0.02 X10^3/uL; Basophil% 0.2 % (0-1); Hematocrit 29.3 % (37-47); Hemoglobin 10.1 g/dL (12.0-15.0); Lymphocyte # 1.58 X10^3/ul (0.83-4.51); Lymphocyte % 14.6 % (19-41); Mean Corp Hgb Conc 34.5 g/dL (32-36); Mean Corpuscular Hgb 30.7 pg (27.0-32.0); Mean Corpuscular Volume 89.1 fL (81-99); Mean Platelet Vol. 9.9 fl (6.2-12.0); Monocyte# 0.48 X10^3/uL; Monocyte% 4.4 % (0-10); NRBC Flagged by Analyzer 0 % (0-5); Neutrophil % 79.8 % (47-70); Platelet Count 187 K/mm3 (150-450); RBC Distribution Width CV 13.2 % (11.6-14.6); RBC Distribution Width SD 43.1 fl (35.1-43.9); Red Blood Count 3.29 M/mm3 (4.2-5.4); White Blood Count 10.8 K/mm3 (4.4-11.0)
[2022-03-21 07:33] LABS: ALB/GLOB Ratio 0.5 RATIO (0.9-2.4); AST(SGOT) 65 U/L (15-37); Alanine Aminotransfer ALT/SGPT 82 U/L (13-56); Albumin, Serum 2.2 g/dL (3.2-5.0); Alkaline Phosphatase 215 U/L (45-117); Anion Gap 6 (5-15); BUN 10 mg/dL (7-18); BUN/Creat Ratio 17.3 RATIO (10-20); Calcium,Total 8.2 mg/dL (8.5-10.1); Chloride 108 mmol/L (98-107); Creatinine, Serum 0.58 mg/dL (0.55-1.02); EST Glomerular Filtration Rate 108 mL/min (>60); Est Glom Filt Rate - Afr Amer 131 mL/min (>60); Estimated Creatinine Clearance 37.24 ml/min; Globulin 4.2 g/dL (2.2-4.2); Glucose 181 mg/dL (74-106); Lipase 147 U/L (73-393); Potassium 3.3 mmol/L (3.5-5.1); Protein, Total 6.4 g/dL (6.4-8.2); Sodium Level 136 mmol/L (136-145)
[2022-03-21 07:44] VITALS: O2SAT 96
--- NOTE | 2022-03-21 08:52 | DCINST_ITS ---
Discharge Instructions Diet Discharge Diet: 1800 Calorie Control Diet Activity Discharge Activity: Return to Normal Activity Weight Bearing Status: Full weight bearing Follow Up Care Test Results: Test results from this visit will be discussed in further detail at your follow- up appointment, if applicable. Discharge Plan Admission Admit Date/Time: 03/20/22 04:50 Attending Provider: Stoney Araujo Primary Care Provider: Candelario Santana [employer] Providers: Jessica Yuan Discharge Orders/Prescriptions Prescriptions: New ciprofloxacin HCl [Cipro] 500 mg tablet 500 mg PO BID Qty: 10 0RF potassium chloride 10 mEq capsule, extended release 20 meq PO DAILY Qty: 60 0RF Continued atorvastatin 40 MG tablet 40 mg PO DAILY lisinopril 20 MG tablet 20 mg PO DAILY chlorthalidone 25 MG tablet 25 mg PO DAILY levothyroxine 75 MCG tablet 75 mcg PO DAILY aspirin 81 MG tablet,chewable 81 mg PO DAILY@0800 sitagliptin-metformin 1 TABLET tablet 1 ea PO BID canagliflozin 300 MG tablet 300 mg PO DAILY metoprolol succinate 25 MG tablet extended release 24 hr 25 mg PO DAILY pioglitazone 30 MG tablet 30 mg PO DAILY Referrals / Follow Up: Antony Tran DO [Med Staff - Active Staff] - See Referral Note (In 2 weeks, call for appointment) Candelario Santana Chi, MD [Primary Care Provider] - See Referral Note (At your next appointment time) Disposition Disposition (needs filled in before D/C Order can be placed): Home, Self Care
--- NOTE | 2022-03-21 09:03 | PCM.DC.SUM ---
Providers Date of Admission: 03/20/22 Date of Discharge: 03/21/22 Primary Care Physician: Dr. Candelario Santana MD Consultations 03/20/22 06:16 Consult: Gastroenterology Routine Consulting Provider: [facility] Reason for Consult: Choledocholithiasis, pancreatitis, incidental gastritis. EMERGENT Consult: No MD Notified: Yes Date Notified: 03/20/22 Time Notified: 05:31 Method of Notification: Text Reason For Visit: ACUTE CHOLEDOCHOLITHIASIS, ACUTE PANCREATITIS Diagnosis Discharge Diagnosis (1) Choledocholithiasis: Status: Acute Code(s): K80.50 - Calculus of bile duct without cholangitis or cholecystitis without obstruction (2) Pancreatitis: Status: Acute Code(s): K85.90 - Acute pancreatitis without necrosis or infection, unspecified Plan 1. Acute pancreatitis secondary to choledocholithiasis #2 choledocholithiasis with obstruction #3 hypokalemia #4 acute cystitis #5 type 2 diabetes #6 hyperlipidemia #7 hypothyroidism Medications at Discharge Home Medications aspirin 81 mg chewable tablet 81 mg PO DAILY@0800 Check with primary doctor 02/12/17 atorvastatin 40 mg tablet 40 mg PO DAILY Check with primary doctor 02/12/17 canagliflozin 300 mg tablet 300 mg PO DAILY Check with primary doctor 02/12/17 chlorthalidone 25 mg tablet 25 mg PO DAILY Check with primary doctor 02/12/17 levothyroxine 75 mcg tablet 75 mcg PO DAILY 02/12/17 lisinopril 20 mg tablet 20 mg PO DAILY 02/12/17 sitagliptin 50 mg-metformin 1,000 mg tablet 1 ea PO BID Check with primary doctor 02/12/17 metoprolol succinate 25 mg tablet,extended release 24 hr 25 mg PO DAILY Check with primary doctor 03/19/20 pioglitazone 30 mg tablet 30 mg PO DAILY Check with primary doctor 03/19/20 ciprofloxacin HCl 500 mg tablet (Cipro) 500 mg PO BID #10 tabs 03/21/22 potassium chloride 10 mEq capsule,extended release 20 meq PO DAILY #60 caps 03/21/22 Hospital Course Operations ERCP (With sphincterotomy and common bile duct stone removal, placement of temporary stents in the common bile duct and pancreatic duct) Procedures None Summary of Care Provided Minutes Spent on Discharge: 31 Physical Exam Narrative This 76-year-old white female was seen in the emergency room at [facility] with chief complaint of abdominal pain in the right upper quadrant radiating into the left upper back. Patient has been experiencing nausea and vomiting also. Work-up in the emergency room included labs which revealed an elevated white blood cell count at 19.5, liver enzymes were elevated, lipase was elevated, and CT scan confirmed distention of the common bile duct as well as inflammation of the pancreas. Urinalysis indicated a probable UTI. Patient was admitted to [place] [address], she was placed on IV antibiotics and IV fluids, she was seen in consultation by gastroenterology who performed an ERCP with sphincterotomy and common bile duct stone removal as well as insertion of temporary stents in the pancreatic and common bile duct. Patient tolerated the procedure well there were no untoward events during her hospitalization. On 03/20/2022, patient was seen and examined: On examination she appeared in good health and spirits, she does not appear to be in any distress. Vital signs as documented. Skin warm and dry and without overt rashes. Neck without JVD, thyroid appears normal, trachea is midline, neck is supple. Lungs clear, normal air movement was noted. Heart exam notable for regular rhythm, normal sounds and absence of murmurs, rubs or gallops. Abdomen unremarkable and without evidence of organomegaly, masses, or abdominal aortic enlargement, bowel sounds are present in all 4 quadrants, no abdominal tenderness was noted. Extremities nonedematous, no cyanosis was noted, no clubbing was noted. Neuro: Cranial nerves II through XII are grossly intact, no focal motor deficits were noted, sensation to light touch and pinprick is intact, motor exam 5/5 throughout. Psych: Patient is alert and oriented x3, she does not appear anxious or depressed, she does not appear agitated. On 03/20/2022, patient was seen and examined and felt to be in stable condition for discharge home Weight / BMI Weight Weight: 69.4 kg Body Mass Index (BMI) 25.8 ABG / Lab / Microbiology Data Result Diagrams: 03/21/22 06:52 03/21/22 06:52 Laboratory: Laboratory Results - last 24 hr 03/20/22 03:03: TSH 7.14 H 03/20/22 03:03: Hemoglobin A1c 6.7 H 03/20/22 14:06: POC Glucose 152 H 03/20/22 17:59: POC Glucose 332 H 03/21/22 00:19: POC Glucose 335 H 03/21/22 06:09: POC Glucose 172 H 03/21/22 06:52: WBC 10.8, RBC 3.29 L, Hgb 10.1 L, Hct 29.3 L, MCV 89.1, MCH 30.7, MCHC 34.5, RDW Std Deviation 43.1, RDW Coeff of Cody 13.2, Plt Count 187, MPV 9.9, Immature Gran % (Auto) 1.000 H, Neut % (Auto) 79.8 H, Lymph % (Auto) 14.6 L, Titus % (Auto) 4.4, Eos % (Auto) 0.0, Baso % (Auto) 0.2, Absolute Neuts (auto) 8.6 H, Absolute Lymphs (auto) 1.58, Nucleated RBC % 0 03/21/22 06:52: Sodium 136, Potassium 3.3 L, Chloride 108 H, Carbon Dioxide 22.0, Anion Gap 6, BUN 10, Creatinine 0.58, Estim Creat Clear Calc 37.24, Est GFR (MDRD) Af Amer 131, Est GFR (MDRD) Non-Af 108, BUN/Creatinine Ratio 17.3, Glucose 181 H, Calcium 8.2 L, Total Bilirubin 1.60 H, AST 65 H, ALT 82 H, Alkaline Phosphatase 215 H, Total Protein 6.4, Albumin 2.2 L, Globulin 4.2, Albumin/Globulin Ratio 0.5 L, Lipase 147 Radiography Diagnostic Testing: Radiology Impression Endo Retro Cholangiopancreatogram 03/20/22 11:02 IMPRESSION: Dilated intra and extra hepatic biliary ducts with retrieval. Of the stones. Electronically Signed: Vimal Dodd MD at 14:00 EDT , D/C Instructions Discharge Diet: 1800 Calorie Control Diet Weight Bearing Status: Full weight bearing Meaningful Use Info Meaningful Use Diagnoses (Choose all that apply): None applicable Discharge Plan Admission Admit Date/Time: 03/20/22 04:50 Attending Provider: Stoney Araujo Primary Care Provider: Candelario Santana Chi Consulting Providers: Jessica Yuan Discharge Orders/Prescriptions Prescriptions: New ciprofloxacin HCl [Cipro] 500 mg tablet 500 mg PO BID Qty: 10 0RF potassium chloride 10 mEq capsule, extended release 20 meq PO DAILY Qty: 60 0RF Continued atorvastatin 40 MG tablet 40 mg PO DAILY lisinopril 20 MG tablet 20 mg PO DAILY chlorthalidone 25 MG tablet 25 mg PO DAILY levothyroxine 75 MCG tablet 75 mcg PO DAILY aspirin 81 MG tablet,chewable 81 mg PO DAILY@0800 sitagliptin-metformin 1 TABLET tablet 1 ea PO BID canagliflozin 300 MG tablet 300 mg PO DAILY metoprolol succinate 25 MG tablet extended release 24 hr 25 mg PO DAILY pioglitazone 30 MG tablet 30 mg PO DAILY Referrals / Follow Up: Antony Tran DO [Med Staff - Active Staff] - See Referral Note (In 2 weeks, call for appointment) Candelario Santana Chi, MD [Primary Care Provider] - See Referral Note (At your next appointment time) Disposition Disposition (needs filled in before D/C Order can be placed): Home, Self Care Charges/Coding Visit Charges Inpatient E&M: 69867 Disch Hosp
[2022-03-21 09:14] VITALS: PULSE 73
[2022-03-21] MEDS: Chlorthalidone 50 MG Tablet 25 MG PO (09:14)
[2022-03-21] MEDS: Metoprolol(XL)Succ 25 MG Tablet PO (09:14)
[2022-03-21 09:34] VITALS: BP 127/66; PULSE 73; RESP 18; TEMP 36.6; O2SAT 97
== END 2022-03-21 10:43 | disposition home or self-care (01) | DRG 439 ==
LOC: ED 05:33 → MS3 05:45
PROVIDERS: Anesthesiology; Internal Medicine Gastroenterology; Admitting Provider Family Medicine; Emergency Provider Emergency Medicine; PCP Family Medicine Geriatric Medicine; Visit Provider Internal Medicine
PROC: 0FPD8DZ Removal of Intraluminal Device from Pancreatic Duct, Via Natural or Artificial Opening Endoscopic (ICD-10-PCS; CPT 43260; principal; 2022-03-20 10:55)
DX: K85.10 Biliary acute pancreatitis without necrosis or infection (principal); N30.00 Acute cystitis without hematuria; K80.50 Calculus of bile duct without cholangitis or cholecystitis without obstruction; E11.9 Type 2 diabetes mellitus without complications; I70.0 Atherosclerosis of aorta; K29.70 Gastritis, unspecified, without bleeding; E89.0 Postprocedural hypothyroidism; E87.6 Hypokalemia; K29.80 Duodenitis without bleeding; I10 Essential (primary) hypertension; E78.00 Pure hypercholesterolemia, unspecified; Z79.82 Long term (current) use of aspirin; Z79.84 Long term (current) use of oral hypoglycemic drugs; Z79.899 Other long term (current) drug therapy; Z79.890 Hormone replacement therapy
CPT/HCPCS: 36415; 74177; 74330; 76000; 80048; 80053; 80076; 81001; 82962; 83036; 83690; 83735; 84443; 85025; 87086; 87088; 87186; 93005; 97802; 99284; J7030; Q9967; A4216; C1726; J0744; J2405

== ENCOUNTER → 2022-04-09 | Outpatient (CLI) | payer MEDICARE, SELFPAY ==
[2022-04-09 16:42] LABS: Absolute Lymphocyte Count 2.49 X10^3/uL (0.83-4.51); Absolute Neutrophil Count 2.6 X10^3/uL (2.0-7.7); Basophil# 0.02 X10^3/uL; Basophil% 0.3 % (0-1); Eosinophil# 0.31 X10^3/uL; Eosinophils% 5.2 % (0-5); Hematocrit 29.6 % (37-47); Lymphocyte # 2.49 X10^3/ul (0.83-4.51); Lymphocyte % 41.8 % (19-41); Mean Corp Hgb Conc 33.8 g/dL (32-36); Mean Corpuscular Volume 88.9 fL (81-99); Monocyte# 0.49 X10^3/uL; Monocyte% 8.2 % (0-10); NRBC Flagged by Analyzer 0 % (0-5); Neutrophil # 2.63 X10^3/uL (2.7-7.7); Neutrophil % 44.2 % (47-70); Platelet Count 203 K/mm3 (150-450); RBC Distribution Width CV 13.3 % (11.6-14.6); Red Blood Count 3.33 M/mm3 (4.2-5.4)
[2022-04-09 16:57] LABS: Vitamin D,25 Hydroxy 28.3 ng/mL
[2022-04-09 17:16] LABS: ALB/GLOB Ratio 0.6 RATIO (0.9-2.4); AST(SGOT) 22 U/L (15-37); Alanine Aminotransfer ALT/SGPT 20 U/L (13-56); Albumin, Serum 2.7 g/dL (3.2-5.0); Alkaline Phosphatase 101 U/L (45-117); Anion Gap 8 (5-15); BUN 8 mg/dL (7-18); BUN/Creat Ratio 10.9 RATIO (10-20); Calcium,Total 8.7 mg/dL (8.5-10.1); Chloride 103 mmol/L (98-107); Cholesterol 154 mg/dL (200); Creatinine, Serum 0.74 mg/dL (0.55-1.02); EST Glomerular Filtration Rate 82 mL/min (>60); Est Glom Filt Rate - Afr Amer 99 mL/min (>60); Globulin 4.4 g/dL (2.2-4.2); Glucose 337 mg/dL (74-106); High Density Lipoprotein 43 mg/dL; Potassium 3.9 mmol/L (3.5-5.1); Protein, Total 7.1 g/dL (6.4-8.2); Sodium Level 135 mmol/L (136-145); Thyroid Stim Hormone (TSH) 5.32 uIU/mL (0.358-3.74); Triglycerides 105 mg/dL; Very Low Density Lipoprotein 21 mg/dL (5-40)
== END | disposition home or self-care (01) ==
LOC: POLAB3 13:45
PROVIDERS: PCP Family Medicine Geriatric Medicine; Visit Provider Family Medicine Geriatric Medicine
DX: I10 Essential (primary) hypertension (principal); E11.9 Type 2 diabetes mellitus without complications; E78.5 Hyperlipidemia, unspecified; E55.9 Vitamin D deficiency, unspecified
CPT/HCPCS: 36415; 80053; 80061; 82306; 84443; 85025

== ENCOUNTER → 2022-05-25 | Outpatient (CLI) | payer MEDICARE, SELFPAY ==
[2022-05-25 17:40] LABS: Thyroid Stim Hormone (TSH) 2.85 uIU/mL (0.358-3.74)
== END | disposition home or self-care (01) ==
LOC: POLAB3 14:53
PROVIDERS: PCP Family Medicine Geriatric Medicine; Visit Provider Family Medicine Geriatric Medicine
DX: E03.9 Hypothyroidism, unspecified (principal)
CPT/HCPCS: 36415; 84443

== ENCOUNTER → 2022-07-08 | Outpatient (CLI) | payer MEDICARE, SELFPAY ==
[2022-07-08 17:57] LABS: Absolute Lymphocyte Count 1.66 X10^3/uL (0.83-4.51); Absolute Neutrophil Count 2.5 X10^3/uL (2.0-7.7); Basophil# 0.04 X10^3/uL; Basophil% 0.8 % (0-1); Eosinophils% 9.7 % (0-5); Hematocrit 33.8 % (37-47); Hemoglobin 11.6 g/dL (12.0-15.0); Lymphocyte # 1.66 X10^3/ul (0.83-4.51); Lymphocyte % 32.4 % (19-41); Mean Corp Hgb Conc 34.3 g/dL (32-36); Mean Corpuscular Hgb 30.9 pg (27.0-32.0); Mean Corpuscular Volume 90.1 fL (81-99); Mean Platelet Vol. 10.3 fl (6.2-12.0); Monocyte# 0.45 X10^3/uL; Monocyte% 8.8 % (0-10); NRBC Flagged by Analyzer 0 % (0-5); Neutrophil # 2.47 X10^3/uL (2.7-7.7); Neutrophil % 48.1 % (47-70); Platelet Count 171 K/mm3 (150-450); RBC Distribution Width CV 14.4 % (11.6-14.6); RBC Distribution Width SD 46.6 fl (35.1-43.9); Red Blood Count 3.75 M/mm3 (4.2-5.4); White Blood Count 5.1 K/mm3 (4.4-11.0)
[2022-07-08 18:18] LABS: Vitamin D,25 Hydroxy 26.2 ng/mL
[2022-07-08 18:23] LABS: ALB/GLOB Ratio 0.7 RATIO (0.9-2.4); AST(SGOT) 20 U/L (15-37); Alanine Aminotransfer ALT/SGPT 16 U/L (13-56); Albumin, Serum 3.1 g/dL (3.2-5.0); Alkaline Phosphatase 99 U/L (45-117); Anion Gap 9 (5-15); BUN 7 mg/dL (7-18); BUN/Creat Ratio 11.6 RATIO (10-20); Calcium,Total 8.7 mg/dL (8.5-10.1); Chloride 104 mmol/L (98-107); Cholesterol 176 mg/dL (200); EST Glomerular Filtration Rate 103 mL/min (>60); Est Glom Filt Rate - Afr Amer 125 mL/min (>60); Globulin 4.3 g/dL (2.2-4.2); Glucose 278 mg/dL (74-106); High Density Lipoprotein 50 mg/dL; Potassium 3.4 mmol/L (3.5-5.1); Protein, Total 7.4 g/dL (6.4-8.2); Sodium Level 138 mmol/L (136-145); Thyroid Stim Hormone (TSH) 5.16 uIU/mL (0.358-3.74); Triglycerides 85 mg/dL; Very Low Density Lipoprotein 17 mg/dL (5-40)
== END | disposition home or self-care (01) ==
LOC: POLAB3 12:15
PROVIDERS: PCP Family Medicine Geriatric Medicine; Visit Provider Family Medicine Geriatric Medicine
DX: E78.5 Hyperlipidemia, unspecified (principal); E11.65 Type 2 diabetes mellitus with hyperglycemia; E55.9 Vitamin D deficiency, unspecified; I10 Essential (primary) hypertension
CPT/HCPCS: 36415; 80053; 80061; 82306; 84443; 85025

== ENCOUNTER → 2022-09-16 | Outpatient (CLI) | payer MEDICARE, SELFPAY ==
[2022-09-16 17:18] LABS: Absolute Lymphocyte Count 2.69 X10^3/uL (0.83-4.51); Absolute Neutrophil Count 3.8 X10^3/uL (2.0-7.7); Basophil# 0.04 X10^3/uL; Basophil% 0.5 % (0-1); Eosinophils% 2.7 % (0-5); Hemoglobin 11.5 g/dL (12.0-15.0); Lymphocyte # 2.69 X10^3/ul (0.83-4.51); Lymphocyte % 36.1 % (19-41); Mean Corp Hgb Conc 34.8 g/dL (32-36); Mean Corpuscular Hgb 30.1 pg (27.0-32.0); Mean Corpuscular Volume 86.4 fL (81-99); Mean Platelet Vol. 10.4 fl (6.2-12.0); Monocyte# 0.73 X10^3/uL; Monocyte% 9.8 % (0-10); NRBC Flagged by Analyzer 0 % (0-5); Neutrophil # 3.76 X10^3/uL (2.7-7.7); Neutrophil % 50.5 % (47-70); Platelet Count 213 K/mm3 (150-450); RBC Distribution Width CV 13.2 % (11.6-14.6); RBC Distribution Width SD 40.5 fl (35.1-43.9); Red Blood Count 3.82 M/mm3 (4.2-5.4); White Blood Count 7.5 K/mm3 (4.4-11.0)
[2022-09-16 17:49] LABS: Vitamin D,25 Hydroxy 26.7 ng/mL
[2022-09-16 17:56] LABS: ALB/GLOB Ratio 0.7 RATIO (0.9-2.4); AST(SGOT) 21 U/L (15-37); Alanine Aminotransfer ALT/SGPT 19 U/L (13-56); Alkaline Phosphatase 81 U/L (45-117); Anion Gap 12 (5-15); BUN 14 mg/dL (7-18); BUN/Creat Ratio 16.9 RATIO (10-20); Calcium,Total 9.2 mg/dL (8.5-10.1); Chloride 100 mmol/L (98-107); Cholesterol 179 mg/dL (200); Creatinine, Serum 0.83 mg/dL (0.55-1.02); EST Glomerular Filtration Rate 72 mL/min (>60); Est Glom Filt Rate - Afr Amer 87 mL/min (>60); Globulin 4.4 g/dL (2.2-4.2); Glucose 374 mg/dL (74-106); High Density Lipoprotein 58 mg/dL; Potassium 3.5 mmol/L (3.5-5.1); Protein, Total 7.4 g/dL (6.4-8.2); Sodium Level 135 mmol/L (136-145); Triglycerides 89 mg/dL; Very Low Density Lipoprotein 18 mg/dL (5-40)
== END | disposition home or self-care (01) ==
LOC: POLAB3 14:17
PROVIDERS: PCP Family Medicine Geriatric Medicine; Visit Provider Family Medicine Geriatric Medicine
DX: I10 Essential (primary) hypertension (principal); E11.65 Type 2 diabetes mellitus with hyperglycemia; E55.9 Vitamin D deficiency, unspecified; E78.5 Hyperlipidemia, unspecified
CPT/HCPCS: 36415; 80053; 80061; 82306; 84443; 85025

== ENCOUNTER 2022-11-24 10:52 | Day surgery (SDC) | payer MEDICARE, SELFPAY ==
[2022-11-24 11:22] VITALS: BP 145/50; PULSE 77; RESP 18; TEMP 37.2; O2SAT 100; BMI 26.0
[2022-11-24] MEDS: Lactated Ringers 1,000 ML 15 ML IV (11:27)
[2022-11-24 11:35] LABS: Bedside Glucose 182 mg/dL (74-106)
--- NOTE | 2022-11-24 12:00 | FLU_PTH ---
PATIENT: SHASHI OSWALD LOC: EN U#:[id number] AGE/SX: 77/F ROOM: RE11/24/[address]: Dr. Antony Tran DO : 1945 BED: DIS: 11/24/2022 SPEC #: [id number] RECD: 11/24/22 13:45 STATUS: VIPUL REAshok #: [id number] MIKE: 11/24/22 12:[address]: Antony Tran DEPT: CYTOLOGY RECD BY: Iveth Freedman ENTERED: 11/25/22 11:44 SP TYPE: Fluid OTHR DR: Dr. Candelario Santana MD Tissues: Bile duct, NOS Procedures: Special Stain Group II Surgery Specimen Level IV Cytospin Fluid HEADER OPERATION: ERCP, stent x2 removal PRE-OP DIAGNOSIS: Choledocholithiasis, bronchitis TISSUE SUBMITTED: Biliary stents for cytology DIAGNOSIS CYTOLOGY Biliary stent fluid (cytospin and cell block): Negative for malignant cells. Bacterial colonies present. AM:christina 11/26/2022 CYTOLOGY STUDY Slides are reviewed. CYTOLOGY GROSS Received is two stents rinsed in CytoLyt producing 50 ml of greenish-brown cloudy fluid with particles labeled with the patient's name and and designated per the requisition as biliary stents. Submitted for cytology preparation including cell block. / christina 11/25/2022 TC:5 CPT: 31219, 28389
--- NOTE | 2022-11-24 12:29 | PCM.HP.BLA ---
History and Physical Date of Admission: 11/24/22 77 F who presents to the office today for Follow up visit. Heather established with this clinic through hospitalization at [facility]. She presented to [facility] ED 03.20.22 with abdominal pain in the RUQ with persistent emesis. Imaging and biochemical workup performed and she was admitted. Gastroenterology consulted 03.20.22 with ERCP performed same day to address choledocholithiasis, pancreatitis and incidentally found gastritis. She was discharged 03.21.22 in stable condition.? ? CT abd/pel 03.20.22 noting distended CBD with hyperdense material suggestive of sludge versus stone; edema within ambreen hepatis, pancreatic head and duodenum with findings suspicious of pancreatitis; thick-walled decompression of distal stomach, duodenal bulb and first and second part of duodenum; diverticulitis; mild/moderate stool retention.? ? ERCP 03.20.22 entire main bile duct markedly dilated with stone causing obstruction; choledocholithiasis with complete removal with biliary sphincterotomy and balloon extraction; biliary tree swept; CBD dilation successful; a total of three stents placed in CBD.? ? OV 06.18.22?start prednisone, azithromycin and levofloxacin for acute bronchitis with a history of pne.? ? Plan LV 06.18.22? Choledocholithiasis ? return for stent removal and biochemical monitoring? Bronchitis ? atb therapy? Today denies any abdominal pain. ROS Const Constitutional: Positive for headache(s); No fatigue, fever(s), frequent falls or weight change ENT ENT: Positive for headache(s); No difficulty swallowing Cardio Cardiology: No leg pain with exertion Gastro GI: No abdominal pain, bloating, change in bowel habits, constipation, diarrhea, heartburn, difficulty swallowing, Vomiting blood/hematemesis, Blood in stool, nausea/dyspepsia or vomiting Musc Musculoskeletal: Positive for numbness, tingling and Arthritis; No abnormal gait, joint pain, back pain, joint swelling, muscle cramps, muscle weakness, stiffness, sciatica, leg pain at night or leg pain with exertion Skin Skin: No dry skin, lesions, itchy eyes or rash Neuro Neurology: Positive for headache(s), numbness and tingling; No abnormal gait, dizziness, frequent falls, tremor(s), Increased tone in limbs, paralysis or seizures Psych Psychiatric: No anxiety, Positive for depression, No paranoia, No Behavioral Problems, No Compulsive Behavior, No hyperactivity, Positive for inattentiveness, No obsessions/compulsions, No Temper Tantrums and No suicidal ideation Endo Endocrine: No fatigue or weight change Aller/Imm Allergy/Immunologic: No itchy eyes Leonel/Lymp Hematologic/Lymphatic: Positive for easy bruising; No easy bleeding Exam Const General: cooperative and comfortable Nutritional Appearance: average body habitus and well nourished HENDE Head: normal to inspection Ears: hearing grossly normal bilaterally Nose: external nose normal Face and sinus: normal facial exam Mouth: oral mucosae normal Throat: posterior oropharynx normal Eyes General: appearance normal, both eyes and all related structures Neck Neck: normal visual inspection Chest Chest palpation & inspection: normal inspection of the chest and normal palpation of entire chest wall Resp Effort & Inspection: normal respiratory effort, audible wheezes and other Auscultation: Bilateral: Clear to Auscultation Cardio Palpation: normal PMI Rate: regular rate Rhythm: regular rhythm GI Inspection: normal to inspection Auscultation: normal bowel sounds Percussion: normal to percussion Palpation: no hepatosplenomegaly Skin General: no rashes or lesions noted Neuro General: patient alert Extrem General: normal to inspection Psych Affect: normal affect Quality Reporting Tobacco Screening ([facility] 138) Smoking Status: Never smoker Assessment and Plan Assessment and Plan (1) Choledocholithiasis: ?Status:?Acute ?Plan: She had several stones removed via ERCP and is doing very well.? She also had a temporary plastic stent placed.? She will need to return for LFTs and to have the stent removed. (2) Bronchitis: ?Status:?Acute ?Plan: resolved I have examined the patient and the H&P has been reviewed. There are no clinical changes since date of exam.
--- NOTE | 2022-11-24 12:54 | RAD_ITS ---
STUDY: ERCP. REASON FOR EXAM: Female, 77 years old. ERCP, STENT PULL FLUOROSCOPY TIME (if supplied): ( 3 minutes and 7 seconds. ) minutes/seconds. 39.62 mGy. 16 spot images were obtained. TECHNIQUE: An ERCP was performed by the sweet dough mixer. COMPARISON: None. FINDINGS: A biliary stent is seen within the common bile duct. Persistent intrahepatic and extrahepatic biliary ductal dilatation. RAD/ERCP Biliary/Pancreas IMPRESSION: Persistent and short and extrahepatic biliary ductal dilatation. Electronically Signed: Vimal Dodd MD at 15:34 EDT ,
--- NOTE | 2022-11-24 13:35 | OP.ERCP_ITS ---
Patient Name: Heather Landry Procedure Date: 11/24/2022 12:15 PM Date of : 1945 Age: 77 Procedure: ERCP Indications: Biliary stent removal Providers: Antony Tran DO Referring MD: Candelario Santana MD Medicines: See the Anesthesia note for documentation of the administered medications Patient Profile: This is a 77 year old female. Refer to note in patient chart for documentation of history and physical. Patient has symptoms of chronic right upper quadrant abdominal pain and chronic nausea. Complications: No immediate complications. Procedure: Pre-Anesthesia Assessment: - Prior to the procedure, a History and Physical was performed, and patient medications and allergies were reviewed. The risks and benefits of the procedure and the sedation options and risks were discussed with the patient. All questions were answered and informed consent was obtained. Patient identification and proposed procedure were verified by the physician. Mental Status Examination: normal. Prophylactic Antibiotics: The patient does not require prophylactic antibiotics. Prior Anticoagulants: The patient has taken no previous anticoagulant or antiplatelet agents. After reviewing the risks and benefits, the patient was deemed in satisfactory condition to undergo the procedure. The anesthesia plan was to use general anesthesia. Immediately prior to administration of medications, the patient was re-assessed for adequacy to receive sedatives. The heart rate, respiratory rate, oxygen saturations, blood pressure, adequacy of pulmonary ventilation, and response to care were monitored throughout the procedure. The physical status of the patient was re-assessed after the procedure. After obtaining informed consent, the scope was passed under direct vision. Throughout the procedure, the patient's blood pressure, pulse, and oxygen saturations were monitored continuously. The Duodenoscope was introduced through the mouth, and advanced to the duodenum and used to inject contrast into the bile duct. The ERCP was accomplished without difficulty. The patient tolerated the procedure well. Scope In: 12:56:41 PM Scope Out: 1:24:58 PM Total Procedure Duration Time 0 hours 28 minutes 17 seconds Findings: The sales order clerk film was normal. The esophagus was successfully intubated under direct vision using the device assisted enteroscope without detailed examination of the pharynx, larynx, and associated structures. The major papilla was normal. The minor papilla was not found. The bile duct was deeply cannulated with the short-nosed traction sphincterotome. Contrast was injected. I personally interpreted the bile duct images. Image quality was excellent. Contrast extended to the entire biliary tree. Opacification of the entire biliary tree except for the cystic duct and gallbladder and main bile duct was successful. The maximum diameter of the ducts was 10 mm. The lower third of the main bile duct contained two stones, the largest of which was 9 mm in diameter. The main bile duct was diffusely dilated, with a stone causing an obstruction. The largest diameter was 15 mm. A cholecystectomy had been performed. A straight Roadrunner wire was passed into the biliary tree. A 5 mm biliary sphincterotomy was made with a monofilament traction (standard) sphincterotome using ERBE electrocautery. The sphincterotomy oozed blood. The biliary tree was swept with a 15 mm balloon starting at the bifurcation. Sludge was swept from the duct. All stones were removed. Cells for cytology were obtained by brushing in the lower third of the main bile duct. Two stents were removed from the biliary tree using a rat-toothed forceps and sent for cytology. The stents were found to be occluded via the water column test. Impression: - The major papilla appeared normal. - The entire main bile duct was dilated, with a stone causing an obstruction. - The patient has had a cholecystectomy. - Choledocholithiasis was found. Complete removal was accomplished by biliary sphincterotomy and balloon extraction. - A biliary sphincterotomy was performed. - The biliary tree was swept. - Cells for cytology obtained in the lower third of the main duct. - Two stents were removed from the biliary tree. Procedure Code(s): --- Professional --- 54753, Endoscopic retrograde cholangiopancreatography (ERCP); with removal of foreign body(s) or stent(s) from biliary/pancreatic duct(s) 69848, Endoscopic retrograde cholangiopancreatography (ERCP); with removal of calculi/debris from biliary/pancreatic duct(s) 48100, Endoscopic retrograde cholangiopancreatography (ERCP); with sphincterotomy/papillotomy 07648, 26, Endoscopic catheterization of the biliary ductal system, radiological supervision and interpretation CPT copyright 2017 [employer]. All rights reserved. The codes documented in this report are preliminary and upon split leather mosser review may be revised to meet current compliance requirements. Antony Tran DO 11/24/2022 1:34:44 PM This report has been signed electronically. Number of Addenda: 0 Note Initiated On: 11/24/2022 12:15 PM
--- NOTE | 2022-11-24 13:36 | OP.CCLET_ITS ---
11/24/2022 Candelario Santana MD [address] [place] [address] Re : ERCP procedure for Heather Landry Dear Dr. Santana This procedure was performed on Thursday, November 24, 2022. My impressions and recommendations are as follows: Impressions : - The major papilla appeared normal. - The entire main bile duct was dilated, with a stone causing an obstruction. - The patient has had a cholecystectomy. - Choledocholithiasis was found. Complete removal was accomplished by biliary sphincterotomy and balloon extraction. - A biliary sphincterotomy was performed. - The biliary tree was swept. - Cells for cytology obtained in the lower third of the main duct. - Two stents were removed from the biliary tree. Recommendations : My findings are described in the full procedure note, which is enclosed. If I can be of further assistance, please feel free to contact me at . Sincerely, Antony Tran, 11/24/2022 1:34:44 PM This report has been signed electronically.
[2022-11-24 13:40] VITALS: BP 127/66; BP 145/50; PULSE 73; RESP 16; TEMP 36.7; O2SAT 99
[2022-11-24 13:45] VITALS: BP 106/71; BP 145/50; PULSE 72; RESP 16; O2SAT 100
[2022-11-24 14:00] VITALS: BP 101/62; BP 145/50; PULSE 68; RESP 16; O2SAT 99
[2022-11-24 14:15] VITALS: BP 106/61; BP 145/50; PULSE 69; RESP 16; TEMP 36.3; O2SAT 100
[2022-11-24 14:49] VITALS: BP 145/50
== END 2022-11-24 14:54 | disposition home or self-care (01) ==
LOC: EN 10:54 → AC 10:56
PROVIDERS: PCP Family Medicine Geriatric Medicine; Referring Provider Family Medicine Geriatric Medicine; Visit Provider Internal Medicine Gastroenterology
PROC: (CPT 43260; principal; 2022-11-24 11:40)
DX: Z46.59 Encounter for fitting and adjustment of other gastrointestinal appliance and device (principal); K80.51 Calculus of bile duct without cholangitis or cholecystitis with obstruction; J40 Bronchitis, not specified as acute or chronic; I10 Essential (primary) hypertension; Z79.899 Other long term (current) drug therapy; E03.9 Hypothyroidism, unspecified; Z79.890 Hormone replacement therapy
CPT/HCPCS: 43275; 43264; 43262; 74330; 76000; 82962; 88108; 88304; 88305; 88313; 93005; J7120; C1769; J2405

== ENCOUNTER → 2022-12-16 | Outpatient (CLI) | payer MEDICARE, SELFPAY ==
[2022-12-16 16:23] LABS: Absolute Lymphocyte Count 2.52 X10^3/uL (0.83-4.51); Absolute Neutrophil Count 2.7 X10^3/uL (2.0-7.7); Basophil# 0.04 X10^3/uL; Basophil% 0.6 % (0-1); Eosinophil# 0.26 X10^3/uL; Eosinophils% 4.2 % (0-5); Hematocrit 30.3 % (37-47); Hemoglobin 10.4 g/dL (12.0-15.0); Lymphocyte # 2.52 X10^3/ul (0.83-4.51); Lymphocyte % 40.4 % (19-41); Mean Corp Hgb Conc 34.3 g/dL (32-36); Mean Corpuscular Volume 90.2 fL (81-99); Mean Platelet Vol. 9.8 fl (6.2-12.0); Monocyte# 0.67 X10^3/uL; Monocyte% 10.7 % (0-10); NRBC Flagged by Analyzer 0 % (0-5); Neutrophil # 2.74 X10^3/uL (2.7-7.7); Neutrophil % 43.9 % (47-70); Platelet Count 212 K/mm3 (150-450); RBC Distribution Width CV 13.6 % (11.6-14.6); RBC Distribution Width SD 44.2 fl (35.1-43.9); Red Blood Count 3.36 M/mm3 (4.2-5.4); White Blood Count 6.2 K/mm3 (4.4-11.0)
[2022-12-16 16:31] LABS: Vitamin D,25 Hydroxy 37.9 ng/mL
[2022-12-16 16:37] LABS: ALB/GLOB Ratio 0.7 RATIO (0.9-2.4); AST(SGOT) 25 U/L (15-37); Alanine Aminotransfer ALT/SGPT 17 U/L (13-56); Albumin, Serum 3.2 g/dL (3.2-5.0); Alkaline Phosphatase 66 U/L (45-117); Anion Gap 5 (5-15); BUN 10 mg/dL (7-18); BUN/Creat Ratio 12.8 RATIO (10-20); Calcium,Total 8.7 mg/dL (8.5-10.1); Chloride 107 mmol/L (98-107); Cholesterol 191 mg/dL (200); Creatinine, Serum 0.78 mg/dL (0.55-1.02); EST Glomerular Filtration Rate 76 mL/min (>60); Est Glom Filt Rate - Afr Amer 92 mL/min (>60); Globulin 4.4 g/dL (2.2-4.2); Glucose 202 mg/dL (74-106); High Density Lipoprotein 50 mg/dL; Potassium 3.9 mmol/L (3.5-5.1); Protein, Total 7.6 g/dL (6.4-8.2); Sodium Level 134 mmol/L (136-145); Thyroid Stim Hormone (TSH) 0.64 uIU/mL (0.358-3.74); Triglycerides 96 mg/dL; Very Low Density Lipoprotein 19 mg/dL (5-40)
== END | disposition home or self-care (01) ==
LOC: POLAB3 14:00
PROVIDERS: PCP Family Medicine Geriatric Medicine; Visit Provider Family Medicine Geriatric Medicine
DX: I10 Essential (primary) hypertension (principal); E11.65 Type 2 diabetes mellitus with hyperglycemia; E55.9 Vitamin D deficiency, unspecified
CPT/HCPCS: 36415; 80053; 80061; 82306; 84443; 85025

== ENCOUNTER → 2022-12-21 | Outpatient (CLI) | payer MEDICARE, SELFPAY ==
[2022-12-21 16:54] LABS: Absolute Neutrophil Count 3.4 X10^3/uL (2.0-7.7); Basophil# 0.05 X10^3/uL; Basophil% 0.7 % (0-1); Eosinophil# 0.26 X10^3/uL; Eosinophils% 3.6 % (0-5); Lymphocyte % 36.9 % (19-41); Mean Corp Hgb Conc 33.3 g/dL (32-36); Mean Corpuscular Hgb 30.8 pg (27.0-32.0); Mean Corpuscular Volume 92.4 fL (81-99); Mean Platelet Vol. 9.7 fl (6.2-12.0); Monocyte# 0.86 X10^3/uL; Monocyte% 11.7 % (0-10); NRBC Flagged by Analyzer 0 % (0-5); Neutrophil # 3.43 X10^3/uL (2.7-7.7); Neutrophil % 46.8 % (47-70); Platelet Count 234 K/mm3 (150-450); RBC Distribution Width CV 13.5 % (11.6-14.6); RET-HE 34.2 pg (30-35); Red Blood Count 3.57 M/mm3 (4.2-5.4); Reticulocyte Count 1.63 % (0.5-1.5); White Blood Count 7.3 K/mm3 (4.4-11.0)
[2022-12-21 17:10] LABS: Vitamin B12 312 pg/mL (211-911)
[2022-12-21 17:17] LABS: Ferritin 32 ng/mL (8-252); Iron 61 ug/dL (50-170); Iron Binding Capacity,Total 295 ug/dL (250-450); PERCENT IRON SATURATION 20.7 % (15.0-55.0)
== END | disposition home or self-care (01) ==
LOC: POLAB3 16:03
PROVIDERS: PCP Family Medicine Geriatric Medicine; Visit Provider Family Medicine Geriatric Medicine
DX: D64.9 Anemia, unspecified (principal)
CPT/HCPCS: 82607; 82728; 82746; 83540; 83550; 85025; 85045

== ENCOUNTER → 2023-03-17 | Outpatient (CLI) | payer MEDICARE, SELFPAY ==
[2023-03-17 17:07] LABS: Absolute Lymphocyte Count 2.32 X10^3/uL (0.83-4.51); Absolute Neutrophil Count 2.9 X10^3/uL (2.0-7.7); Basophil# 0.04 X10^3/uL; Basophil% 0.7 % (0-1); Eosinophil# 0.13 X10^3/uL; Eosinophils% 2.2 % (0-5); Hematocrit 35.2 % (37-47); Hemoglobin 11.5 g/dL (12.0-15.0); Lymphocyte # 2.32 X10^3/ul (0.83-4.51); Lymphocyte % 38.7 % (19-41); Mean Corp Hgb Conc 32.7 g/dL (32-36); Mean Corpuscular Hgb 30.4 pg (27.0-32.0); Mean Corpuscular Volume 93.1 fL (81-99); Mean Platelet Vol. 10.3 fl (6.2-12.0); Monocyte# 0.54 X10^3/uL; NRBC Flagged by Analyzer 0 % (0-5); Neutrophil # 2.93 X10^3/uL (2.7-7.7); Neutrophil % 48.9 % (47-70); Platelet Count 252 K/mm3 (150-450); RBC Distribution Width CV 13.5 % (11.6-14.6); Red Blood Count 3.78 M/mm3 (4.2-5.4)
[2023-03-17 17:14] LABS: Vitamin D,25 Hydroxy 21.8 ng/mL
[2023-03-17 17:25] LABS: ALB/GLOB Ratio 0.7 RATIO (0.9-2.4); AST(SGOT) 41 U/L (15-37); Alanine Aminotransfer ALT/SGPT 48 U/L (13-56); Alkaline Phosphatase 162 U/L (45-117); Anion Gap 8 (5-15); BUN 8 mg/dL (7-18); BUN/Creat Ratio 10.3 RATIO (10-20); Calcium,Total 8.8 mg/dL (8.5-10.1); Chloride 104 mmol/L (98-107); Cholesterol 163 mg/dL (200); Creatinine, Serum 0.77 mg/dL (0.55-1.02); EST Glomerular Filtration Rate 77 mL/min (>60); Est Glom Filt Rate - Afr Amer 93 mL/min (>60); Globulin 4.4 g/dL (2.2-4.2); Glucose 289 mg/dL (74-106); High Density Lipoprotein 36 mg/dL; Potassium 4.2 mmol/L (3.5-5.1); Protein, Total 7.4 g/dL (6.4-8.2); Sodium Level 134 mmol/L (136-145); Thyroid Stim Hormone (TSH) 3.35 uIU/mL (0.358-3.74); Triglycerides 102 mg/dL; Very Low Density Lipoprotein 20 mg/dL (5-40)
== END | disposition home or self-care (01) ==
PROVIDERS: PCP Family Medicine Geriatric Medicine; Visit Provider Family Medicine Geriatric Medicine
DX: I10 Essential (primary) hypertension (principal); E11.65 Type 2 diabetes mellitus with hyperglycemia; E55.9 Vitamin D deficiency, unspecified
CPT/HCPCS: 36415; 80053; 80061; 82306; 84443; 85025

== ENCOUNTER → 2023-06-15 | Outpatient (CLI) | payer MEDICARE, SELFPAY ==
[2023-06-15 15:58] LABS: Absolute Lymphocyte Count 3.02 X10^3/uL (0.83-4.51); Absolute Neutrophil Count 3.5 X10^3/uL (2.0-7.7); Basophil# 0.05 X10^3/uL; Basophil% 0.7 % (0-1); Eosinophil# 0.21 X10^3/uL; Eosinophils% 2.8 % (0-5); Hematocrit 34.5 % (37-47); Lymphocyte # 3.02 X10^3/ul (0.83-4.51); Lymphocyte % 39.7 % (19-41); Mean Corp Hgb Conc 34.8 g/dL (32-36); Mean Corpuscular Hgb 30.5 pg (27.0-32.0); Mean Corpuscular Volume 87.6 fL (81-99); Mean Platelet Vol. 10.2 fl (6.2-12.0); Monocyte# 0.78 X10^3/uL; Monocyte% 10.2 % (0-10); NRBC Flagged by Analyzer 0 % (0-5); Neutrophil # 3.53 X10^3/uL (2.7-7.7); Neutrophil % 46.3 % (47-70); Platelet Count 223 K/mm3 (150-450); RBC Distribution Width CV 13.2 % (11.6-14.6); RBC Distribution Width SD 42.4 fl (35.1-43.9); Red Blood Count 3.94 M/mm3 (4.2-5.4); White Blood Count 7.6 K/mm3 (4.4-11.0)
[2023-06-15 16:15] LABS: ALB/GLOB Ratio 0.7 RATIO (0.9-2.4); AST(SGOT) 21 U/L (15-37); Alanine Aminotransfer ALT/SGPT 18 U/L (13-56); Albumin, Serum 3.1 g/dL (3.2-5.0); Alkaline Phosphatase 99 U/L (45-117); Anion Gap 12 (5-15); BUN 11 mg/dL (7-18); BUN/Creat Ratio 13.8 RATIO (10-20); Calcium,Total 8.3 mg/dL (8.5-10.1); Chloride 105 mmol/L (98-107); Cholesterol 198 mg/dL (200); EST Glomerular Filtration Rate 74 mL/min (>60); Est Glom Filt Rate - Afr Amer 90 mL/min (>60); Globulin 4.6 g/dL (2.2-4.2); Glucose 385 mg/dL (74-106); High Density Lipoprotein 54 mg/dL; Potassium 3.5 mmol/L (3.5-5.1); Protein, Total 7.7 g/dL (6.4-8.2); Sodium Level 135 mmol/L (136-145); Thyroid Stim Hormone (TSH) 5.09 uIU/mL (0.358-3.74); Triglycerides 93 mg/dL; Very Low Density Lipoprotein 19 mg/dL (5-40)
== END | disposition home or self-care (01) ==
LOC: POLAB3 14:33
PROVIDERS: PCP Family Medicine Geriatric Medicine; Visit Provider Family Medicine Geriatric Medicine
DX: D64.9 Anemia, unspecified (principal); E11.65 Type 2 diabetes mellitus with hyperglycemia; E78.5 Hyperlipidemia, unspecified; E55.9 Vitamin D deficiency, unspecified; I10 Essential (primary) hypertension
CPT/HCPCS: 36415; 80053; 80061; 82306; 84443; 85025

== ENCOUNTER → 2023-09-21 | Outpatient (CLI) | payer MEDICARE, SELFPAY ==
--- OUTSIDE RECORDS SUMMARY | 2023-09-21 13:51 | XMS RPT_ITS | CCD ---
Author Name Unknown Address [address] [place] [address] Organization [facility] Care Team Providers Care Cardiovascular Or Nurse Name Role Phone Abhay Ferreira . Unavailable Unavailable PROVIDER, UNKNOWN Unavailable Unavailable MAX, CANDELARIO-CHI Unavailable Unavailable Beto Hein Unavailable Unavailable PROVIDER, UNKNOWN Unavailable Unavailable Max, Candelario Chi Unavailable Unavailable CARYN ODOM Unavailable Unavailable MAX, CANDELARIO-CHI Unavailable Unavailable MAX, CANDELARIO-CHI Unavailable Unavailable Problems Active Problems Problem Classification Problem Date Documented Date Episodic/Chronic Conduction disorders (2 sources) Long QT syndrome; Translations: [Long QT syndrome] Onset: 02-13-2017 Chronic Coronary atherosclerosis and other heart disease (2 sources) Old myocardial infarction; Translations: [Old myocardial infarction] Onset: 02-13-2017 Chronic Diabetes mellitus with complications (2 sources) Type 2 diabetes mellitus with hypoglycemia without coma; Translations: [Type 2 diabetes mellitus with hypoglycemia without coma] Onset: 02-13-2017 Chronic Disorders of lipid metabolism (2 sources) Hyperlipidemia, unspecified; Translations: [Hyperlipidemia, unspecified] Onset: 02-13-2017 Chronic Essential hypertension (2 sources) Essential (primary) hypertension; Translations: [Essential (primary) hypertension] Onset: 02-13-2017 Chronic Heart valve disorders (2 sources) Combined rheumatic disorders of mitral, aortic and tricuspid valves; Translations: [Comb rheumatic disord of mitral, aortic and tricuspid valves] Onset: 02-13-2017 Chronic Peripheral and visceral atherosclerosis (2 sources) Atherosclerosis of other arteries; Translations: [Atherosclerosis of other arteries] Onset: 02-13-2017 Chronic Thyroid disorders (2 sources) Hypothyroidism, unspecified; Translations: [Hypothyroidism, unspecified] Onset: 02-13-2017 Chronic Unclassified (1 source) Unknown / UNK(Unknown) Onset: 02-18-2017 Past or Other Problems Problem Classification Problem Date Documented Date Episodic/Chronic Cardiac dysrhythmias (2 sources) Palpitations; Translations: [Palpitations] Onset: 03-05-2017 Episodic Conditions associated with dizziness or vertigo (2 sources) Dizziness and giddiness; Translations: [Dizziness and giddiness] Onset: 03-05-2017 Episodic Contraceptive and procreative management (2 sources) Tubal ligation status; Translations: [Tubal ligation status] Onset: 02-13-2017 Episodic Heart valve disorders (2 sources) Cardiac murmur, unspecified; Translations: [Cardiac murmur, unspecified] Onset: 02-13-2017 Episodic Noninfectious gastroenteritis (2 sources) Noninfective gastroenteritis and colitis, unspecified; Translations: [Noninfective gastroenteritis and colitis, unspecified] Onset: 02-13-2017 Episodic Nonspecific chest pain (2 sources) Chest pain, unspecified; Translations: [Chest pain, unspecified] Onset: 02-13-2017 Episodic Other aftercare (4 sources) retirement (current) use of aspirin; Translations: [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] Onset: 02-13-2017 Episodic Other circulatory disease (2 sources) Hypotension, unspecified; Translations: [Hypotension, unspecified] Onset: 02-13-2017 Episodic Other injuries and conditions due to external causes (2 sources) History of falling; Translations: [History of falling] Onset: 02-13-2017 Episodic Screening or history of mental health and substance abuse (2 sources) Personal history of nicotine dependence; Translations: [Personal history of nicotine dependence] Onset: 02-13-2017 Episodic Syncope (2 sources) Syncope and collapse; Translations: [Syncope and collapse] Onset: 02-13-2017 Episodic Unclassified (2 sources) Other specified abnormal findings of blood chemistry; Translations: [Other specified abnormal findings of blood chemistry] Onset: 02-13-2017 Episodic Unclassified (1 source) R53.83 Onset: 02-18-2017 Results Test Name Value Interpretation Reference Range Facil ity Encounters Encounter Date Encounter Type Care Provider Facility Start: 03-05-2017 [facility] Start: 02-18-2017 End: 02-19-2017 Ambulatory CARYN WO ID REFERRING Facility:[facility] Start: 02-13-2017 Emergency department patient visit Abhay Payneclaudia [facility] Payers Date Payer Category Payer Policy ID Private Health Insurance Summary Purpose Family History No Family History Records FoundNo Family History Records FoundNo Family History Records Found Advance Directives No Advanced Directives Records FoundNo Advanced Directives Records FoundNo Advanced Directives Records Found Additional Source Comments INFORMATION SOURCE (unrecogn ized section and content) DATE CREATED AUTHOR AUTHOR'S ORGANIZ ATION 02/16/2018 [facility] DATE CREATED AUTHOR AUTHOR'S ORGANIZ ATION 02/16/2018 [facility] [employer] FOR RECORDS PERTAINING TO PATIENTS WHO ARE OR HAVE BEEN ENROLLED IN A CHEMICAL DEPENDENCY/SUBSTANCEABUSE PROGRAM, SOME INFORMATION MAY BE OMITTED. This clinical summary was aggregated from multiple sources. Caution should be exercised in using it in the provision of clinical care. This summary normalizes information from multiple sources, and as a consequence, information in this document may materially change the coding, format and clinical context of patient data. In addition, data may be omitted in some cases. CLINICAL DECISIONS SHOULD BE BASED ON THE PRIMARY CLINICAL RECORDS. [facility] [employer] [facility]. provides no warranty or guarantee of the accuracy or completeness of information in this document.
[2023-09-21 15:13] LABS: Absolute Neutrophil Count 2.3 X10^3/uL (2.0-7.7); Basophil# 0.04 X10^3/uL; Basophil% 0.7 % (0-1); Eosinophil# 0.18 X10^3/uL; Eosinophils% 3.1 % (0-5); Hematocrit 30.9 % (37-47); Hemoglobin 10.5 g/dL (12.0-15.0); Lymphocyte % 46.9 % (19-41); Mean Corpuscular Hgb 31.3 pg (27.0-32.0); Mean Platelet Vol. 9.8 fl (6.2-12.0); Monocyte# 0.49 X10^3/uL; Monocyte% 8.5 % (0-10); NRBC Flagged by Analyzer 0 % (0-5); Neutrophil # 2.34 X10^3/uL (2.7-7.7); Neutrophil % 40.6 % (47-70); Platelet Count 185 K/mm3 (150-450); RBC Distribution Width CV 14.6 % (11.6-14.6); RBC Distribution Width SD 48.9 fl (35.1-43.9); Red Blood Count 3.36 M/mm3 (4.2-5.4); White Blood Count 5.8 K/mm3 (4.4-11.0)
[2023-09-21 15:27] LABS: Vitamin D,25 Hydroxy 27.7 ng/mL
[2023-09-21 15:37] LABS: ALB/GLOB Ratio 0.7 RATIO (0.9-2.4); AST(SGOT) 29 U/L (15-37); Alanine Aminotransfer ALT/SGPT 23 U/L (13-56); Albumin, Serum 3.1 g/dL (3.2-5.0); Alkaline Phosphatase 93 U/L (45-117); Anion Gap 7 (5-15); BUN 10 mg/dL (7-18); BUN/Creat Ratio 13.9 RATIO (10-20); Calcium,Total 8.9 mg/dL (8.5-10.1); Chloride 106 mmol/L (98-107); Cholesterol 154 mg/dL (200); Creatinine, Serum 0.72 mg/dL (0.55-1.02); EST Glomerular Filtration Rate 84 mL/min (>60); Est Glom Filt Rate - Afr Amer 101 mL/min (>60); Globulin 4.4 g/dL (2.2-4.2); Glucose 227 mg/dL (74-106); High Density Lipoprotein 41 mg/dL; Potassium 3.6 mmol/L (3.5-5.1); Protein, Total 7.5 g/dL (6.4-8.2); Sodium Level 135 mmol/L (136-145); Triglycerides 94 mg/dL; Very Low Density Lipoprotein 19 mg/dL (5-40)
== END | disposition home or self-care (01) ==
LOC: POLAB3 13:34
PROVIDERS: PCP Family Medicine Geriatric Medicine; Visit Provider Family Medicine Geriatric Medicine
DX: E11.65 Type 2 diabetes mellitus with hyperglycemia (principal); E78.5 Hyperlipidemia, unspecified; E55.9 Vitamin D deficiency, unspecified; I10 Essential (primary) hypertension
CPT/HCPCS: 36415; 80053; 80061; 82306; 84443; 85025

== ENCOUNTER → 2023-12-20 | Outpatient (CLI) | payer MEDICARE, SELFPAY ==
[2023-12-20 15:46] LABS: Absolute Lymphocyte Count 2.35 X10^3/uL (0.83-4.51); Absolute Neutrophil Count 2.6 X10^3/uL (2.0-7.7); Basophil# 0.04 X10^3/uL; Basophil% 0.7 % (0-1); Eosinophil# 0.15 X10^3/uL; Eosinophils% 2.6 % (0-5); Hematocrit 30.1 % (37-47); Hemoglobin 10.6 g/dL (12.0-15.0); Lymphocyte # 2.35 X10^3/ul (0.83-4.51); Lymphocyte % 40.9 % (19-41); Mean Corp Hgb Conc 35.2 g/dL (32-36); Mean Corpuscular Hgb 30.9 pg (27.0-32.0); Mean Corpuscular Volume 87.8 fL (81-99); Mean Platelet Vol. 9.9 fl (6.2-12.0); Monocyte# 0.57 X10^3/uL; Monocyte% 9.9 % (0-10); NRBC Flagged by Analyzer 0 % (0-5); Neutrophil # 2.62 X10^3/uL (2.7-7.7); Neutrophil % 45.7 % (47-70); Platelet Count 183 K/mm3 (150-450); RBC Distribution Width CV 13.1 % (11.6-14.6); RBC Distribution Width SD 41.3 fl (35.1-43.9); Red Blood Count 3.43 M/mm3 (4.2-5.4); White Blood Count 5.7 K/mm3 (4.4-11.0)
[2023-12-20 16:25] LABS: Vitamin D,25 Hydroxy 19.3 ng/mL
[2023-12-20 16:29] LABS: ALB/GLOB Ratio 0.7 RATIO (0.9-2.4); AST(SGOT) 26 U/L (15-37); Alanine Aminotransfer ALT/SGPT 17 U/L (13-56); Alkaline Phosphatase 83 U/L (45-117); Anion Gap 5 (5-15); BUN 7 mg/dL (7-18); BUN/Creat Ratio 9.3 RATIO (10-20); Calcium,Total 8.5 mg/dL (8.5-10.1); Chloride 107 mmol/L (98-107); Cholesterol 144 mg/dL (200); Creatinine, Serum 0.75 mg/dL (0.55-1.02); EST Glomerular Filtration Rate 80 mL/min (>60); Est Glom Filt Rate - Afr Amer 96 mL/min (>60); Globulin 4.3 g/dL (2.2-4.2); Glucose 284 mg/dL (74-106); High Density Lipoprotein 45 mg/dL; Potassium 3.6 mmol/L (3.5-5.1); Protein, Total 7.3 g/dL (6.4-8.2); Sodium Level 137 mmol/L (136-145); Thyroid Stim Hormone (TSH) 2.06 uIU/mL (0.358-3.74); Triglycerides 106 mg/dL; Very Low Density Lipoprotein 21 mg/dL (5-40)
[2023-12-20 16:37] LABS: Hemoglobin A1c 7.2 % (3.8-5.6)
== END | disposition home or self-care (01) ==
LOC: LAB 14:46
PROVIDERS: PCP Family Medicine Geriatric Medicine; Visit Provider Family Medicine Geriatric Medicine
DX: I10 Essential (primary) hypertension (principal); E11.65 Type 2 diabetes mellitus with hyperglycemia; E78.5 Hyperlipidemia, unspecified; E55.9 Vitamin D deficiency, unspecified
CPT/HCPCS: 36415; 80053; 80061; 82306; 83036; 84443; 85025

== ENCOUNTER → 2024-03-21 | Outpatient (CLI) | payer MEDICARE, SELFPAY ==
[2024-03-21 13:52] LABS: Absolute Lymphocyte Count 2.55 X10^3/uL (0.83-4.51); Absolute Neutrophil Count 5.1 X10^3/uL (2.0-7.7); Basophil# 0.04 X10^3/uL; Basophil% 0.5 % (0-1); Eosinophil# 0.13 X10^3/uL; Eosinophils% 1.5 % (0-5); Hematocrit 35.2 % (37-47); Hemoglobin 12.2 g/dL (12.0-15.0); Lymphocyte # 2.55 X10^3/ul (0.83-4.51); Lymphocyte % 30.2 % (19-41); Mean Corp Hgb Conc 34.7 g/dL (32-36); Mean Corpuscular Hgb 29.7 pg (27.0-32.0); Mean Corpuscular Volume 85.6 fL (81-99); Monocyte% 7.1 % (0-10); NRBC Flagged by Analyzer 0 % (0-5); Neutrophil # 5.08 X10^3/uL (2.7-7.7); Neutrophil % 60.3 % (47-70); Platelet Count 195 K/mm3 (150-450); RBC Distribution Width CV 13.1 % (11.6-14.6); RBC Distribution Width SD 40.5 fl (35.1-43.9); Red Blood Count 4.11 M/mm3 (4.2-5.4); White Blood Count 8.4 K/mm3 (4.4-11.0)
[2024-03-21 14:14] LABS: Hemoglobin A1c 7.6 % (3.8-5.6)
[2024-03-21 14:17] LABS: Vitamin D,25 Hydroxy 33.4 ng/mL
--- NOTE | 2024-03-21 14:25 | RAD_ITS ---
STUDY: X-RAY CHEST REASON FOR EXAM: Female, 78 years old. SOB TECHNIQUE: Frontal and lateral views of the chest. COMPARISON: 01/12/2018. FINDINGS: The lungs are clear and expanded. There is no demonstrated pleural abnormality. Sternal cerclage wires and vascular clips are present from a prior sternotomy and coronary artery bypass graft procedure (CABG). Normal mediastinum and tl. Normal visualized pulmonary arteries. There is atherosclerotic calcification of the aortic arch with tortuosity. Normal visualized thoracic spine. Normal visualized ribs, clavicles, and shoulders. There is no demonstrated abnormality of the visualized soft tissue structures of the upper abdomen. RAD/Chest PA and Lateral IMPRESSION: No definite acute or significant abnormality seen. Electronically Signed: Magen Orlando MD at 16:55 EDT ,
[2024-03-21 14:26] LABS: ALB/GLOB Ratio 0.7 RATIO (0.9-2.4); AST(SGOT) 31 U/L (15-37); Alanine Aminotransfer ALT/SGPT 16 U/L (13-56); Albumin, Serum 3.2 g/dL (3.2-5.0); Alkaline Phosphatase 126 U/L (45-117); Anion Gap 9 (5-15); BUN 10 mg/dL (7-18); BUN/Creat Ratio 13.3 RATIO (10-20); Calcium,Total 9.5 mg/dL (8.5-10.1); Chloride 100 mmol/L (98-107); Cholesterol 176 mg/dL (200); Creatinine, Serum 0.75 mg/dL (0.55-1.02); EST Glomerular Filtration Rate 80 mL/min (>60); Est Glom Filt Rate - Afr Amer 96 mL/min (>60); Globulin 4.5 g/dL (2.2-4.2); Glucose 313 mg/dL (74-106); High Density Lipoprotein 56 mg/dL; Potassium 3.7 mmol/L (3.5-5.1); Protein, Total 7.7 g/dL (6.4-8.2); Sodium Level 135 mmol/L (136-145); Thyroid Stim Hormone (TSH) 4.82 uIU/mL (0.358-3.74); Triglycerides 80 mg/dL; Very Low Density Lipoprotein 16 mg/dL (5-40)
== END | disposition home or self-care (01) ==
LOC: POLAB3 13:27
PROVIDERS: PCP Family Medicine Geriatric Medicine; Visit Provider Family Medicine Geriatric Medicine
DX: I10 Essential (primary) hypertension (principal); E11.65 Type 2 diabetes mellitus with hyperglycemia; E55.9 Vitamin D deficiency, unspecified; E78.5 Hyperlipidemia, unspecified; R06.02 Shortness of breath
CPT/HCPCS: 36415; 71046; 80053; 80061; 82306; 83036; 84443; 85025

== ENCOUNTER → 2024-06-21 | Outpatient (CLI) | payer MEDICARE, SELFPAY ==
[2024-06-21 14:34] LABS: Absolute Lymphocyte Count 2.31 X10^3/uL (0.83-4.51); Basophil# 0.04 X10^3/uL; Basophil% 0.8 % (0-1); Eosinophil# 0.17 X10^3/uL; Eosinophils% 3.4 % (0-5); Hematocrit 31.8 % (37-47); Hemoglobin 10.9 g/dL (12.0-15.0); Lymphocyte # 2.31 X10^3/ul (0.83-4.51); Lymphocyte % 45.8 % (19-41); Mean Corp Hgb Conc 34.3 g/dL (32-36); Mean Corpuscular Hgb 30.8 pg (27.0-32.0); Mean Corpuscular Volume 89.8 fL (81-99); Mean Platelet Vol. 9.8 fl (6.2-12.0); Monocyte# 0.48 X10^3/uL; Monocyte% 9.5 % (0-10); NRBC Flagged by Analyzer 0 % (0-5); Neutrophil # 2.03 X10^3/uL (2.7-7.7); Neutrophil % 40.3 % (47-70); Platelet Count 190 K/mm3 (150-450); Red Blood Count 3.54 M/mm3 (4.2-5.4)
[2024-06-21 15:06] LABS: Vitamin D,25 Hydroxy 16.8 ng/mL
[2024-06-21 15:09] LABS: Hemoglobin A1c 6.9 % (3.8-5.6)
[2024-06-21 15:12] LABS: ALB/GLOB Ratio 0.7 RATIO (0.9-2.4); AST(SGOT) 24 U/L (15-37); Alanine Aminotransfer ALT/SGPT 15 U/L (13-56); Albumin, Serum 3.1 g/dL (3.2-5.0); Alkaline Phosphatase 76 U/L (45-117); Anion Gap 5 (5-15); BUN 8 mg/dL (7-18); BUN/Creat Ratio 12.6 RATIO (10-20); Chloride 110 mmol/L (98-107); Cholesterol 156 mg/dL (200); Creatinine, Serum 0.64 mg/dL (0.55-1.02); EST Glomerular Filtration Rate 96 mL/min (>60); Est Glom Filt Rate - Afr Amer 117 mL/min (>60); Globulin 4.2 g/dL (2.2-4.2); Glucose 124 mg/dL (74-106); High Density Lipoprotein 50 mg/dL; Potassium 4.1 mmol/L (3.5-5.1); Protein, Total 7.3 g/dL (6.4-8.2); Sodium Level 139 mmol/L (136-145); Triglycerides 90 mg/dL; Very Low Density Lipoprotein 18 mg/dL (5-40)
== END | disposition home or self-care (01) ==
LOC: POLAB3 14:20
PROVIDERS: PCP Family Medicine Geriatric Medicine; Visit Provider Family Medicine Geriatric Medicine
DX: E11.65 Type 2 diabetes mellitus with hyperglycemia (principal); E55.9 Vitamin D deficiency, unspecified; I10 Essential (primary) hypertension; E78.5 Hyperlipidemia, unspecified
CPT/HCPCS: 36415; 80053; 80061; 82306; 83036; 84443; 85025

== ENCOUNTER → 2024-09-25 | Outpatient (CLI) | payer MEDICARE, SELFPAY ==
[2024-09-25 16:16] LABS: Absolute Lymphocyte Count 2.89 X10^3/uL (0.83-4.51); Absolute Neutrophil Count 4.6 X10^3/uL (2.0-7.7); Basophil# 0.04 X10^3/uL; Basophil% 0.5 % (0-1); Eosinophil# 0.22 X10^3/uL; Eosinophils% 2.6 % (0-5); Hematocrit 31.9 % (37-47); Hemoglobin 11.4 g/dL (12.0-15.0); Lymphocyte # 2.89 X10^3/ul (0.83-4.51); Lymphocyte % 33.8 % (19-41); Mean Corp Hgb Conc 35.7 g/dL (32-36); Mean Corpuscular Hgb 31.6 pg (27.0-32.0); Mean Corpuscular Volume 88.4 fL (81-99); Monocyte# 0.82 X10^3/uL; Monocyte% 9.6 % (0-10); NRBC Flagged by Analyzer 0 % (0-5); Neutrophil # 4.56 X10^3/uL (2.7-7.7); Neutrophil % 53.3 % (47-70); Platelet Count 225 K/mm3 (150-450); RBC Distribution Width CV 13.6 % (11.6-14.6); RBC Distribution Width SD 42.6 fl (35.1-43.9); Red Blood Count 3.61 M/mm3 (4.2-5.4); White Blood Count 8.6 K/mm3 (4.4-11.0)
[2024-09-25 16:52] LABS: Vitamin D,25 Hydroxy 26.7 ng/mL
[2024-09-25 17:00] LABS: Hemoglobin A1c 4.7 % (3.8-5.6)
[2024-09-25 17:04] LABS: ALB/GLOB Ratio 0.7 RATIO (0.9-2.4); AST(SGOT) 26 U/L (15-37); Alanine Aminotransfer ALT/SGPT 18 U/L (13-56); Albumin, Serum 3.2 g/dL (3.2-5.0); Alkaline Phosphatase 89 U/L (45-117); Anion Gap 9 (5-15); BUN 15 mg/dL (7-18); BUN/Creat Ratio 17.2 RATIO (10-20); Chloride 104 mmol/L (98-107); Cholesterol 158 mg/dL (200); Creatinine, Serum 0.87 mg/dL (0.55-1.02); EST Glomerular Filtration Rate 67 mL/min (>60); Est Glom Filt Rate - Afr Amer 81 mL/min (>60); Globulin 4.3 g/dL (2.2-4.2); Glucose 176 mg/dL (74-106); High Density Lipoprotein 50 mg/dL; Potassium 3.3 mmol/L (3.5-5.1); Protein, Total 7.5 g/dL (6.4-8.2); Sodium Level 137 mmol/L (136-145); Triglycerides 114 mg/dL; Very Low Density Lipoprotein 23 mg/dL (5-40)
== END | disposition home or self-care (01) ==
PROVIDERS: PCP Family Medicine Geriatric Medicine; Referring Provider Family Medicine Geriatric Medicine; Visit Provider Family Medicine Geriatric Medicine
DX: E11.65 Type 2 diabetes mellitus with hyperglycemia (principal); I10 Essential (primary) hypertension; E78.5 Hyperlipidemia, unspecified; E55.9 Vitamin D deficiency, unspecified
CPT/HCPCS: 36415; 80053; 80061; 82043; 82306; 82570; 83036; 84443; 85025

== ENCOUNTER → 2024-12-27 | Outpatient (CLI) | payer MEDICARE, SELFPAY | END | disposition home or self-care (01) | LOC: LAB 13:53 | PROVIDERS: PCP Family Medicine Geriatric Medicine; Referring Provider Family Medicine Geriatric Medicine; Visit Provider Family Medicine Geriatric Medicine | DX: E11.65 Type 2 diabetes mellitus with hyperglycemia (principal); E78.5 Hyperlipidemia, unspecified; E55.9 Vitamin D deficiency, unspecified; I10 Essential (primary) hypertension ==

== ENCOUNTER 2025-02-15 13:10 | Inpatient (IN) | payer MEDICARE, SELFPAY ==
[2025-02-15 13:11] VITALS: BP 105/74; PULSE 98; RESP 16; TEMP 36.8; O2SAT 100; BMI 26.9
--- NOTE | 2025-02-15 13:27 | EDS_ITS ---
HPI History of Present Illness Chief Complaint: Lower Extremity Injury Narrative Narrative: Patient is a 79-year-old female past medical history diabetes, hypertension, hypothyroidism who presented to the emergency department chief complaint of inability to walk. Patient states that she fell on Wednesday of last week and states that she had her sons help her to the couch and she has not been able to get up off the couch since then. She states that her sons and other individuals were bringing her food and water/drinks. She states that since she has had persistent pain and not able to get up she came in by EMS today. [facility] Medical History Wears glasses Rash Thyroid disease Diabetes Arthritis Restless legs Syncope Dietary restriction Non-smoker Leg cramps Hypertension Chronic anemia Hypothyroidism Diabetes mellitus, type 2 Hypertension Home Medications ?Medication ?Instructions ?Recorded ?Last Taken ?Type carbidopa 25 mg-levodopa 100 mg 1 tab PO TID 02/15/25 02/15/25 History tablet losartan 50 mg tablet 50 mg PO DAILY 02/15/2501/22 History Allergy/AdvReac Type Severity Reaction Status Date / Time Penicillins Allergy Intermediate Hives Verified 02/15/25 13:14 Family History Father Myocardial infarction Hypertension Heart disease Sister Breast cancer Mother CVA (cerebral vascular accident) Surgical History Hx of right cataract extraction Hx of left cataract extraction Hx of esophagogastroduodenoscopy Hx of colonoscopy History of ERCP S/P tubal ligation History of thoracic surgery H/O thyroidectomy History of cholecystectomy Hx of appendectomy Social History household members: other details: with son Smoking Status: Never smoker alcohol intake: never substance use type: does not use what type of physical activity do you participate in: none do you feel safe at home: Yes ROS ROS ED ROS Narrative Constitutional: Denies headache, lightness, dizziness Eyes: Denies change in vision double vision blurry vision Cardiovascular: Denies chest pain Respiratory: Denies shortness of breath Abdomen: Denies abdominal pain nausea vomit diarrhea : Denies urinary symptoms Neurological: Denies numbness, weakness, tingling Musculoskeletal: Complains of left hip pain Skin: Denies any rashes or lesions EXAM Physical Exam Narrative Exam Narrative: General: Patient lying in bed resting comfortably did not appear to be in acute distress Head: Atraumatic, normocephalic Eyes: PERRL bilaterally, EOMI bilateral, no conjunctival injection noted Neck: Soft, supple, trachea midline Cardiovascular: Regular rate and rhythm Respiratory: Clear to auscultation bilaterally Abdomen: Soft, nondistended, no tenderness palpation Musculoskeletal: Patient has obvious deformity to the left thigh region Extremities: DP pulses +2/4 in the left lower extremity Neurological: Patient following commands and that she was at the hospital the year is 2024 Skin: Warm, dry, tact no rashes or lesions noted Const Vital Signs: 02/15/25 13:11 Temperature 98.3 F Temperature Source Oral Pulse Rate 98 Respiratory Rate 16 Blood Pressure 105/74 Blood Pressure Mean 84 Pulse Ox 100 Oxygen Delivery Method Room Air MDM MDM MDM Narrative Medical decision making narrative: Patient is a 79-year-old female who presented to the emergency department the chief complaint of left hip pain and unable to walk. On the differential diagnose includes but limited to femoral neck fracture, intertrochanteric hip fracture, subtrochanteric sure. Once workup is obtained reviewed she will be reevaluated. Patient's CBC reviewed showed no evidence leukocytosis white blood count normal at 9.1, hemoglobin is 8.7, platelet count 258. Patient's chemistries are pending urinalysis pending. Patient's x-ray of her hip and pelvis as well as her left femur reviewed by myself and by radiology which showed a comminuted impacted left intertrochanteric hip fracture. Will discuss case with orthopedic surgeon Dr. Chacon. Will discuss case with hospitalist for admission as well. Discussed case with hospitalist Dr. Mas who accept patient for admission. Notified the patient and family members at bedside they are agreeable spinal course concerns answered. Lab Data Labs: Laboratory Results - last 24 hr 02/15/25 02/15/25 13:21 14:18 WBC 9.1 RBC 2.71 L Hgb 8.7 L Hct 24.0 L MCV 88.6 MCH 32.1 H MCHC 36.3 H RDW Std Deviation 42.4 RDW Coeff of [place] 14.1 Plt Count 258 MPV 9.6 Immature Gran % (Auto) 0.300 Neut % (Auto) 50.2 Lymph % (Auto) 38.6 [place] % (Auto) 8.7 Eos % (Auto) 1.8 Baso % (Auto) 0.4 Absolute Neuts (auto) 4.6 Absolute Lymphs (auto) 3.52 Nucleated RBC % 0 Urine Color Straw Urine Clarity Clear Urine pH 6.5 Ur Specific [place] 1.010 Urine Protein 30 H Urine Glucose (UA) Normal Urine Ketones 15 H Urine Occult Blood 10 H Urine Nitrite Negative Urine Bilirubin Negative Urine Urobilinogen 8 H Ur Leukocyte Esterase Negative Radiography Diagnostic Testing: Clinical Impression(s) from Imaging Studies Femur X-Ray 02/15/25 13:40 IMPRESSION: Comminuted impacted left intertrochanteric fracture. Reading Location: [facility] Hip/Pelvis X-Ray 02/15/25 13:40 IMPRESSION: Comminuted impacted left intertrochanteric fracture. Reading Location: [facility] Discharge Plan Triage Chief Complaint: Lower Extremity Injury ED Provider: Abdirashid Cano Dx/Rx/DC Orders Clinical Impression: Fall, Hip fracture Prescriptions: No Action losartan 50 mg tablet 50 mg PO DAILY carbidopa-levodopa 25-100 mg tablet 1 tab PO TID Primary Care Provider: Candelario Santana Chi Referrals: Candelario Santana Chi, MD [Primary Care Provider] - Print Language: Serbian Disposition Disposition: Acute Care Hospital [facility]
[2025-02-15 13:40] LABS: Hematocrit 24.0 % (37-47); Hemoglobin 8.7 g/dL (12.0-15.0); Immature Granulocytes Count 0.030 X10^3/uL (0.0-0.0); Mean Corp Hgb Conc 36.3 g/dL (32-36); Mean Corpuscular Volume 88.6 fL (81-99); Mean Platelet Vol. 9.6 fl (6.2-12.0); NRBC Flagged by Analyzer 0 % (0-5); Platelet Count 258 K/mm3 (150-450); RBC Distribution Width CV 14.1 % (11.6-14.6); RBC Distribution Width SD 42.4 fl (35.1-43.9); Red Blood Count 2.71 M/mm3 (4.2-5.4); White Blood Count 9.1 K/mm3 (4.4-11.0)
--- NOTE | 2025-02-15 13:40 | RAD_ITS ---
EXAM: XR Left Femur, 2 Views CLINICAL INDICATION: FALL TECHNIQUE: Frontal and lateral views of the left femur. COMPARISON: No relevant prior studies available. FINDINGS: BONES/JOINTS: Comminuted impacted left intertrochanteric fracture. No dislocation. SOFT TISSUES: Soft tissue swelling. RAD/Femur Min 2 Views IMPRESSION: Comminuted impacted left intertrochanteric fracture. Reading Location: [facility]
--- NOTE | 2025-02-15 13:40 | RAD_ITS ---
EXAM: XR Left Hip With Pelvis When Performed, 2 or 3 Views CLINICAL INDICATION: FALL TECHNIQUE: Two or three views of the left hip with pelvis when performed. COMPARISON: No relevant prior studies available. FINDINGS: BONES/JOINTS: Comminuted impacted left intertrochanteric fracture. No dislocation. SOFT TISSUES: Soft tissue swelling. RAD/HIP, UNI W/ Pelvis 2-3 Views IMPRESSION: Comminuted impacted left intertrochanteric fracture. Reading Location: [facility]
[2025-02-15] MEDS: 0.9% Normal Saline (1000mL) 1,000 ML 999 ML IV (14:21)
[2025-02-15 14:22] LABS: Mucous, Urine 0 SEEN /hpf (<or=2+)
[2025-02-15 14:27] LABS: Color, Urine Straw (Yellow); Glucose, Dipstick Normal (Normal); Ketone-Dipstick 15 mg/dl (Negative); Leukocyte Esterase-Dipstick Negative /ul (Negative); Nitrite-Dipstick Negative (Negative); Occult Blood-Urine 10 /ul (Negative); Protein-Dipstick 30 mg/dl (Negative); Specific Gravity, Urine 1.010 (1.002-1.030); Urine Bilirubin Dipstick Negative (Negative)
[2025-02-15 14:39] LABS: AST(SGOT) 33 U/L (<=31); Alanine Aminotransfer ALT/SGPT < 5 U/L (<=34); Albumin, Serum 3.0 g/dL (3.4-4.8); Alkaline Phosphatase 77 U/L (35-104); Anion Gap 15 (5-15); BUN 19 mg/dL (4-19); BUN/Creat Ratio 25.3 RATIO (10-20); Calcium,Total 8.7 mg/dL (7.6-11.0); Carbon Dioxide 18.1 mmol/L (21.0-32.0); Chloride 100 mmol/L (98-108); Estimated Creatinine Clearance 50.65 ml/min (50-250); Globulin 3.7 g/dL (2.2-4.2); Glucose 155 mg/dL (70-99); Potassium 3.7 mmol/L (3.3-5.1)
--- NOTE | 2025-02-15 14:56 | HP.PCM.HOS_ITS ---
HPI - General General Date of Admission: 02/15/25 Date of Service: 02/15/25 Chief Complaint: Left hip fracture HPI Narrative SHASHI OSWALD, is a 79-year-old female history of diabetes, hypertension, hypothyroidism presented to [facility] ED 02/15/2025 with inability to walk. She fell Wednesday of last week and had her sons help her get to the couch but she has not been able to get up off the couch since then and notes that friends and family been bringing her food and water/drinks but due to the persistent pain and still not able to get up she called EMS and presented to the hospital. On arrival in the ED patient afebrile, blood pressure 105/74 with heart rate of 98 and respiratory rate 16 with pulse ox 100% on room air. CBC did reveal hemoglobin of 8.7, last value available 09/25/2024 was 11.4. CMP with a creatinine within normal limits but does note total bilirubin of 2.68, minimal elevation of AST to 33 with a normal ALT and alk phos. UA does not appear infectious. X-ray of the pelvis did reveal a left intertrochanteric fracture. Ortho contacted who recommended medicine admission with Ortho consult. Hospitalist contacted for mission. Patient evaluated at bedside with family member present, they do report the fall roughly week ago with pain, her son has been changing her she has been unable to walk or get to the bathroom. Aside from the pain patient has no other new or acute complaints [facility] Medical History Wears glasses Rash Thyroid disease Diabetes Arthritis Restless legs Syncope Dietary restriction Non-smoker Leg cramps Hypertension Chronic anemia Hypothyroidism Diabetes mellitus, type 2 Hypertension Home Medications ?Medication ?Instructions ?Recorded ?Last Taken ?Type carbidopa 25 mg-levodopa 100 mg 1 tab PO TID 02/15/25 02/15/25 History tablet losartan 50 mg tablet 50 mg PO DAILY 02/15/2501/22 History Allergy/AdvReac Type Severity Reaction Status Date / Time Penicillins Allergy Intermediate Hives Verified 02/15/25 13:14 Family History Father Myocardial infarction Hypertension Heart disease Sister Breast cancer Mother CVA (cerebral vascular accident) Surgical History Hx of right cataract extraction Hx of left cataract extraction Hx of esophagogastroduodenoscopy Hx of colonoscopy History of ERCP S/P tubal ligation History of thoracic surgery H/O thyroidectomy History of cholecystectomy Hx of appendectomy Social History household members: other details: with son Smoking Status: Never smoker alcohol intake: never substance use type: does not use what type of physical activity do you participate in: none do you feel safe at home: Yes ROS ROS Narrative General: Denies fever/chills HENT: Denies headache, denies stuffy nose, denies sore throat EYES: Denies changes in vision Resp: Denies cough, denies shortness of breath Cardiac: Denies chest pain GI: Denies abdominal pain, denies changes in bowel, denies nausea/vomiting : Denies changes in urination Extremity: Denies swelling MSK: Denies weakness but does have the left-sided hip pain Neuro: Denies any numbness/tingling Heme: Denies any bleeding or bruising Skin: Denies rashes Psychiatric: No complaints voiced Vital Signs Vital Signs Vital Signs: 02/15/25 13:11 Temperature 98.3 F Temperature Source Oral Pulse Rate 98 Respiratory Rate 16 Blood Pressure 105/74 Blood Pressure Mean 84 Pulse Ox 100 Oxygen Delivery Method Room Air Weight Weight: 64.5 kg Body Mass Index (BMI) 26.9 Physical Exam Narrative General: Alert, oriented, no apparent distress HEENT: Atraumatic, normocephalic Eyes: Anicteric, normal conjunctiva, extraocular movements grossly intact Neck: Supple Respiratory: Clear to auscultation bilaterally, normal respiratory effort Cardiovascular: Some low-grade tachycardia on auscultation GI: Soft, nontender, nondistended Extremities: No edema Musculoskeletal: Moving all extremities except left lower extremity due to pain Neuro: No overt focal neurological deficits Skin: No rashes appreciated Psych: Cooperative Results Lab / Micro Data 02/15/25 13:21 02/15/25 13:21 Labs: Laboratory Results - last 24 hr 02/15/25 13:21: WBC 9.1, RBC 2.71 L, Hgb 8.7 L, Hct 24.0 L, MCV 88.6, MCH 32.1 H , MCHC 36.3 H, RDW Std Deviation 42.4, RDW Coeff of [place] 14.1, Plt Count 258, MPV 9.6, Immature Gran % (Auto) 0.300, Neut % (Auto) 50.2, Lymph % (Auto) 38.6, [place] % (Auto) 8.7, Eos % (Auto) 1.8, Baso % (Auto) 0.4, Absolute Neuts (auto) 4.6, Absolute Lymphs (auto) 3.52, Nucleated RBC % 0, Sodium 133, Potassium 3.7, Chloride 100, Carbon Dioxide 18.1 L, Anion Gap 15, BUN 19, Creatinine 0.76, Estim Creat Clear Calc 50.65, Est GFR (MDRD) Non-Af 80, BUN/Creatinine Ratio 25.3 H, Glucose 155 H, Calcium 8.7, Total Bilirubin 2.68 H, AST 33 H, ALT < 5, Alkaline Phosphatase 77, Total Protein 6.8, Albumin 3.0 L, Globulin 3.7, A lbumin/Globulin Ratio 0.8 L 02/15/25 14:18: Urine Color Straw, Urine Clarity Clear, Urine pH 6.5, Ur Specific [place] 1.010, Urine Protein 30 H, Urine Glucose (UA) Normal, Urine Ketones 15 H, Urine Occult Blood 10 H, Urine Nitrite Negative, Urine Bilirubin Negative, Urine Urobilinogen 8 H, Ur Leukocyte Esterase Negative Imaging Radiology Impression Femur X-Ray 02/15/25 13:40 IMPRESSION: Comminuted impacted left intertrochanteric fracture. Reading Location: [facility] Hip/Pelvis X-Ray 02/15/25 13:40 IMPRESSION: Comminuted impacted left intertrochanteric fracture. Reading Location: [facility] Assessment & Plan Assessment/Plan (1) Hip fracture: PLAN: Plan # Inability to ambulate after fall secondary to left-sided hip fracture - Hip and pelvis x-ray demonstrated comminuted impacted left intertrochanteric fracture -Ortho consult - PT/OT -Case management consult -Pain control/supportive care # Anemia -Appears baseline is in the 10-11 range -Hemoglobin 8.7 today, no reported history of bleeding -Will check iron panel and reticulocyte count - Will check direct bilirubin given bili is also elevated as well as LDH and haptoglobin -May need to consider fecal occult or further workup pending trends -Repeat in the a.m. or sooner if any new concerns for bleeding #Type 2 diabetes mellitus -Previously diagnosed with diabetes, does not appear to be on any oral hypoglycemics anymore, check A1c, glucose checks sliding scale insulin #Hypothyroidism -With surgery for removal or at the very least partial removal - Does not appear to be on replacement anymore - Will check TSH # Parkinson's disease - continue home Sinemet - supportive care #Hypertension - Blood pressure in the ED initially only 105/74, will hold home antihypertensives given blood pressures already on the low end and will leave her room for pain control -Can add back home medication as tolerated #DVT ppx: SCDs Lakeshia Mas MD Charges/Coding Visit Charges Inpatient E&M: 72712 Init Hosp L2
[2025-02-15 15:00] VITALS: BP 113/66; O2SAT 100
[2025-02-15 15:31] LABS: Red Blood Cells-Urine 0-5 SEEN /hpf (0-5); Squamous Epithelial Cells - UA 5-10 SEEN /hpf (5-10)
[2025-02-15 15:32] VITALS: BP 113/66; PULSE 78; RESP 15; TEMP 37; O2SAT 100
--- NOTE | 2025-02-15 15:32 | CASEMGMT ---
Care Management Face to Face with patient for initial transition planning/care coordination assessment in the ED.? This rfp writer introduced self and role at [facility]. Patient alert and oriented. Patient willing to participate in assessment and is able to answer all questions appropriately.? Care providers, pharmacy, and demographics verified. Admitting Diagnosis: Hip FX Other diagnosis history: ?thyroid disease, arthritis, syncope, hypertension, anemia, type 2 diabetes PCP: ?Max Specialists: ?None Preferred Pharmacy: [facility] Insurance: ?[employer] Prescription Benefit: yes Living Will/HPOA: ?none, may want to complete while admitted LNOK: son Living Arrangements: ?Lives with son in a one story home, 2 steps to enter. Prior to injury, patient was independent with ADLs and IADLs Transportation: son drives DME: ?cane, walker, grab bar, shower chair, bedside commode HHC: ?none SNF/Rehab: ?none Community Resources: ?none Behavioral Health History: ?none Patient goals: ?Discharge plans uncertain at this time. ??Patient agreeable to rehab stay if necessary.? Disposition Plan: admission to acute; RN CM/SW to follow for discharge planning needs that may arise. Zenobia Morales, MORTGAGE LOAN PROCESSING CLERK, DRAPERY INSTALLER
[2025-02-15 16:04] VITALS: BMI 23.8
[2025-02-15 16:09] VITALS: BP 98/53; PULSE 72; RESP 12; TEMP 37.2; O2SAT 100
[2025-02-15 16:41] LABS: Bilirubin, Direct 1.15 mg/dL (0.00-0.30); LDH 247 U/L (84-246)
[2025-02-15 19:45] VITALS: BP 100/53; PULSE 85; RESP 16; TEMP 37.3; O2SAT 99
[2025-02-15] MEDS: Senna/Docusate Sodium 1 Tablet 2 TABLET PO (20:15)
[2025-02-15 21:26] LABS: Immature Reticulocyte Fraction 12.50 % (3.00-15.90); Platelet Count 288 K/mm3 (150-450); Reticulocyte Count 4.81 % (0.5-1.5)
[2025-02-15 21:32] LABS: Ferritin 150 ng/mL (22-378); Iron 62 ug/dL (50-170); Iron Binding Capacity,Unsat 135 ug/dL (228-428)
[2025-02-15 21:36] LABS: Iron Binding Capacity,Total 197 ug/dL (250-450)
--- OUTSIDE RECORDS SUMMARY | 2025-02-15 21:52 | XMS RPT_ITS | CCD ---
Author Organization [facility] Care Team Providers Care Toeing Stockings Name Role Phone Abhay Ferreira Unavailable Unavailable PROVIDER, UNKNOWN Unavailable Unavailable DESMOND, BEBETO-CHI Unavailable Unavailable Joe Hein Unavailable Unavailable PROVIDER, UNKNOWN Unavailable Unavailable Desmond, Bebeto Chi Unavailable Unavailable REFERRING, RYANY WO ID Unavailable Unavailable DESMOND, BEBETO-CHI Unavailable Unavailable DESMOND, BEBETO-CHI Unavailable Unavailable Dr. Bebeto Santana Chi Primary Care Provider Dr. Eber Robles Emergency Provider Dr. Jessica Yuan Attending Provider Dr. Jessica Yuan Admit Provider Dr. Jessica Yuan Other Provider Dr. Ash Araujo Other Provider Friend, Dr. Hardy Attending Provider Dr. Ash Araujo Referring Provider TerDr. Ash mensah Attending Provider Dr. Bebeto Santana Chi Primary Care Provider [phone] Eber Robles Emergency Provider Dr. Jessica Yuan Attending Provider Dr. Jessica Yuan Admit Provider Dr. Jessica Yuan Other Provider Dr. Ash Araujo Referring Provider Dr. Ash Araujo Other Provider Friend, Dr. Hardy Attending Provider Dr. Ash Araujo Attending Provider DesmondDr. Bebeto coles Chi Referring Provider Desmond, Dr. Bebeto Angeles Primary Care Provider Friend, Dr. Hardy Attending Provider [phone] Desmond, Dr. Bebeto Angeles Primary Care Provider Desmond, Dr. Bebeto Angeles Referring Provider Friend, Dr. Hardy Attending Provider [phone] Friend, Dr. Hardy Other Provider Shiv, Dr. Trotter Attending Provider Friend, Dr. Hardy Referring Provider Desmond, Dr. Bebeto Angeles Primary Care Provider Desmond, Dr. Bebeto Angeles Referring Provider Friend, Dr. Hardy Attending Provider [phone] Desmond , Dr. Bebeto Angeles Primary Care Provider [phone] Desmond ALFARO, Dr. Bebeto Angeles Attending Provider Desmond ALFARO, Dr. Bebeto Angeles Referring Provider [phone] Desmond, Bebeto Chi Attending Unavailable Desmond, Bebeto Chi Referring Unavailable Desmond, Bebeto Chi Primary Care Unavailable Desmond, Bebeto Chi Primary Care Unavailable Desmond, Bebeto Chi Attending Unavailable Desmond, Bebeto Chi Attending Unavailable Desmond, Bebeto Chi Referring Unavailable Desmond, Bebeto Chi Primary Care Unavailable Desmond, Bebeto Chi Primary Care Unavailable Desmond, Bebeto Chi Attending Unavailable Desmond, Bebeto Chi Referring Unavailable Desmond, Bebeto Chi Attending Unavailable Desmond, Bebeto Chi Referring Unavailable Desmond, Bebeto Chi Primary Care Unavailable Desmond, Bebeto Chi Attending Unavailable Desmond, Bebeto Chi Referring Unavailable Desmond, Bebeto Chi Primary Care Unavailable Desmond, Bebeto Chi Attending Unavailable Desmond, Bebeto Chi Primary Care Unavailable Desmond, Bebeto Chi Attending Unavailable Desmond, Bebeto Chi Referring Unavailable Desmond, Bebeto Chi Primary Care Unavailable Desmond , Dr. Bebeto Angeles Primary Care Provider Desmond ALFARO, Dr. Bebeto Angeles Attending Provider Dr. Bebeto Santana MD, Chi Referring Provider Dr. Abdirashid Cano DO Referring Provider [phone] Dr. Abdirashid Cano DO Emergency Provider [phone] Chace ALFARO, Dr. Asher Admit Provider Chace ALFARO, Dr. Asher Attending Provider Allergies Allergy Classification Reported Allergen(s) Allergy Type Date of Onset Reaction(s) Facility (17 sources) Penicillins; Translations: [Penicillins] Allergy to substance 10-22-2020 [facility] Medications Current Medications Medication Drug Class(es) Dates Sig (Normalized) Sig (Original) aspirin 81 mg chewable tablet (8 sources) Platelet Aggregation Inhibitor, Nonsteroidal Anti-inflammatory Drug Start: 02-12-2017 take 81 mg by mouth once daily Aspirin Active 81 MG PO DAILY@0800 February 11, 2017 11:00pm atorvastatin 40 mg oral tablet (8 sources) HMG-CoA Reductase Inhibitor Start: 02-12-2017 take 40 mg by mouth once daily Atorvastatin Active 40 MG PO DAILY February 11, 2017 11:00pm carbidopa 25 mg / levodopa 100 mg oral tablet (1 source) Aromatic Amino Acid Decarboxylation Inhibitor, Aromatic Amino Acid Start: 02-15-2025 Carbidopa-Levodop a 25-100 mg tablet Active 1 {tbl} PO THREE TIMES A DAY February 15, 2025 12:00am glimepiride 4 mg oral tablet (2 sources) Sulfonylurea Start: 03-19-2020 take 4 mg by mouth once daily Glimepiride Active 4 MG PO DAILY March 19, 2020 3:14pm levoFLOXacin 500 mg oral tablet (2 sources) Quinolone Antimicrobial Start: 06-18-2022 take 500 mg by mouth once daily Levofloxacin Active 500 MG PO DAILY June 17, 2022 11:00pm losartan potassium 50 mg oral tablet (1 source) Angiotensin 2 Receptor Danya Start: 02-15-2025 take 1 tablet by mouth once daily Losartan 50 mg tablet Active 50 mg PO DAILY February 15, 2025 12:00am metFORMIN hydrochloride 1000 mg / SITagliptin 50 mg oral tablet (8 sources) Biguanide, Dipeptidyl Peptidase 4 Inhibitor Start: 02-12-2017 Sitagliptin Phos-Metformin Active 1 EACH PO TWICE A DAY February 11, 2017 11:00pm predniSONE 20 mg oral tablet (2 sources) Start: 06-18-2022 take 20 mg by mouth once daily Prednisone Active 20 MG PO DAILY June 17, 2022 11:00pm Completed/Discontinued Medications Medication Drug Class(es) Dates Sig (Normalized) Sig (Original) azithromycin 250 mg oral tablet (10 sources) Macrolide Antimicrobial Start: 06-18-2022 End: 06-25-2022 take 1 tablet by mouth once daily Azithromycin 250 mg tablet Discontinued 250 mg PO DAILY 02 26June 18, 2022 12:00am June 24, 2022 12:00am June 25, 2022 12:14am canagliflozin 300 mg oral tablet (16 sources) Sodium-Glucose Cotransporter 2 Inhibitor Start: 02-12-2017 End: 06-18-2022 take 1 tablet by mouth once daily Canagliflozin 300 MG tablet Discontinued 300 mg PO DAILY February 12, 2017 12:00am June 18, 2022 3:31pm chlorthalidone 25 mg oral tablet (16 sources) Thiazide-like Diuretic Start: 02-12-2017 End: 06-18-2022 take 1 tablet by mouth once daily Chlorthalidone 25 MG tablet Discontinued 25 mg PO DAILY February 12, 2017 12:00am June 18, 2022 3:33pm cholecalciferol 0.05 mg oral capsule (8 sources) Vitamin D Start: 11-20-2022 End: 02-15-2025 take 1 capsule by mouth once daily Cholecalciferol (Vitamin D3) (Vitamin D3) 50 mcg (2,000 unit) Capsule Discontinued 50 ug PO DAILY November 20, 2022 12:00am February 15, 2025 1:35pm ciprofloxacin 500 mg oral tablet (13 sources) Quinolone Antimicrobial Start: 03-21-2022 End: 06-18-2022 take 1 tablet by mouth twice daily Ciprofloxacin Hcl (Cipro) 500 mg tablet Discontinued 500 mg PO TWICE A DAY March 21, 2022 12:00am June 18, 2022 3:32pm levothyroxine sodium 0.075 mg oral tablet (16 sources) l-Thyroxine Start: 02-12-2017 End: 02-15-2025 Levothyroxine 75 MCG tablet Discontinued 88 ug PO DAILY February 12, 2017 12:00am February 15, 2025 1:35pm Start: 02-12-2017 take 88 ug by mouth once daily Levothyroxine Active 88 MCG PO DAILY February 12, 2017 12:00am Start: 02-12-2017 take 75 ug by mouth once daily Levothyroxine Active 75 MCG PO DAILY February 11, 2017 11:00pm lisinopril 20 mg oral tablet (16 sources) Angiotensin Converting Enzyme Inhibitor Start: 02-12-2017 End: 02-15-2025 take 1 tablet by mouth once daily Lisinopril 20 MG tablet Discontinued 20 mg PO DAILY February 12, 2017 12:00am February 15, 2025 1:35pm 24 hr metFORMIN hydrochloride 500 mg extended release oral tablet (8 sources) Biguanide Start: 11-20-2022 End: 02-15-2025 Metformin 500 mg Tablet Extended Release 24 Hr Discontinued 1000 mg PO TWICE A DAY November 20, 2022 12:00am February 15, 2025 1:35pm Start: 11-20-2022 take 1000 mg by mout h twice daily Metformin Active 1000 MG PO TWICE A DAY November 20, 2022 12:00am 24 hr metoprolol succinate 25 mg extended release oral tablet (16 sources) beta-Adrenergic Danya Start: 03-19-2020 End: 06-18-2022 take 1 tablet by mouth once daily Metoprolol Succinate 25 MG tablet extended release 24 hr Discontinued 25 mg PO DAILY March 19, 2020 12:00am June 18, 2022 3:32pm oxyCODONE hydrochloride 5 mg oral tablet (16 sources) Opioid Agonist Start: 05-12-2020 End: 05-15-2020 take 1 tablet by mouth every six hours as needed for pain Oxycodone 5 MG tablet Discontinued 5 mg PO EVERY 6 HOURS NEEDED as needed for Pain 12 3 May 12, 2020 May 14, 2020 12:00am May 15, 2020 12:02am pioglitazone 30 mg oral tablet (16 sources) Peroxisome Proliferator Receptor alpha Agonist, Peroxisome Proliferator Receptor gamma Agonist, Thiazolidinedione Start: 03-19-2020 End: 02-15-2025 take 1 tablet by mouth once daily Pioglitazone 30 MG tablet Discontinued 30 mg PO DAILY March 19, 2020 12:00am February 15, 2025 1:36pm potassium chloride 10 meq extended release oral capsule (13 sources) Start: 03-21-2022 End: 06-18-2022 take 2 capsules by mouth once daily Potassium Chloride 10 mEq capsule, extended release Discontinued 20 meq PO DAILY 60 March 21, 2022 12:00am June 18, 2022 3:32pm Start: 03-21-2022 End: 06-18-2022 take 20 mEq by mouth once daily Potassium Chloride Discontinued 20 MEQ PO DAILY 60 March 21, 2022 12:00am June 18, 2022 3:32pm Problems Active Problems Problem Classification Problem Date Documented Da te Episodic/Chronic Acute myocardial infarction (16 sources) Myocardial infarction; Translations: [Non-ST elevation (NSTEMI) myocardial infarction] 05-12-2020 Chronic Biliary tract disease (20 sources) Common bile duct calculus; Translations: [Calculus of bile duct without cholangitis or cholecystitis without obstruction] Episodic Cardiac dysrhythmias (18 sources) Palpitations; Translations: [Tachycardia] Onset: 03-05-2017 05-12-2020 Episodic Chronic obstructive pulmonary disease and bronchiectasis (19 sources) Bronchitis; Translations: [Bronchitis, not specified as acute or chronic] Episodic Conduction disorders (2 sources) Long QT syndrome; Translations: [Long QT syndrome] Onset: 02-13-2017 Chronic Coronary atherosclerosis and other heart disease (2 sources) Old myocardial infarction; Translations: [Old myocardial infarction] Onset: 02-13-2017 Chronic Deficiency and other anemia (16 sources) Anemia; Translations: [Anemia, unspecified] 03-20-2022 Episodic Diabetes mellitus with complications (4 sources) Type 2 diabetes mellitus with hypoglycemia without coma; Translations: [Type 2 diabetes mellitus with hyperglycemia] Onset: 02-13-2017 Chronic Diabetes mellitus without complication (16 sources) Type 2 diabetes mellitus; Translations: [Type 2 diabetes mellitus without complications] 03-20-2022 Chronic Disorders of lipid metabolism (19 sources) Hyperlipidemia, unspecified; Translations: [Hyperlipidemia] Onset: 02-13-2017 03-19-2020 Chronic E Codes: Fall (2 sources) Fall; Translations: [Unspecified fall, initial encounter] 02-15-2025 Episodic Essential hypertension (20 sources) Essential (primary) hypertension; Translations: [Hypertensive disorder] Onset: 02-13-2017 03-20-2022 Chronic Fracture of neck of femur (hip) (2 sources) Fracture of bone of hip region; Translations: [Fracture of unspecified part of neck of unspecified femur, initial encounter for closed fracture] 02-15-2025 Episodic Fracture of upper limb (16 sources) Closed fracture of upper end of humerus; Translations: [Unspecified fracture of upper end of right humerus, initial encounter for closed fracture] 05-13-2020 Episodic Heart valve disorders (2 sources) Combined rheumatic disorders of mitral, aortic and tricuspid valves; Translations: [Comb rheumatic disord of mitral, aortic and tricuspid valves] Onset: 02-13-2017 Chronic Heart valve disorders (18 sources) Cardiac murmur, unspecified; Translations: [Heart murmur] Onset: 02-13-2017 03-19-2020 Episodic Nutritional deficiencies (1 source) Vitamin D deficiency, unspecified; Translations: [Vitamin D deficiency, unspecified] Onset: 12-27-2024 Chronic Other gastrointestinal disorders (16 sources) History of hemorrhoid; Translations: [Personal history of other diseases of the digestive system] 05-12-2020 Episodic Other gastrointestinal disorders (16 sources) Occult blood in stools; Translations: [Other fecal abnormalities] 07-23-2020 Episodic Other gastrointestinal disorders (7 sources) Constipation; Translations: [Constipation, unspecified] 12-09-2022 Episodic Other gastrointestinal disorders (3 sources) Constipation, unspecified; Translations: [Constipation, unspecified] 12-09-2022 Episodic Other hematologic conditions (12 sources) Raised cardiac enzyme or marker; Translations: [Other specified abnormalities of plasma proteins] 03-19-2020 Episodic Pancreatic disorders (not diabetes) (20 sources) Gallstone acute pancreatitis; Translations: [Biliary acute pancreatitis without necrosis or infection] Episodic Peripheral and visceral atherosclerosis (2 sources) Atherosclerosis of other arteries; Translations: [Atherosclerosis of other arteries] Onset: 02-13-2017 Chronic Syncope (18 sources) Syncope and collapse; Translations: [Near syncope] Onset: 02-13-2017 05-12-2020 Episodic Thyroid disorders (18 sources) Hypothyroidism, unspecified; Translations: [Hypothyroidism] Onset: 02-13-2017 03-20-2022 Chronic Unclassified (6 sources) Other specified abnormal findings of blood chemistry; Translations: [Raised cardiac enzyme or marker] Onset: 02-13-2017 03-19-2020 Episodic Unclassified (1 source) Unknown / UNK(Unknown) Onset: 02-18-2017 Urinary tract infections (19 sources) Urinary tract infectious disease; Translations: [Urinary tract infection, site not specified] Episodic Past or Other Problems Problem Classification Problem Date Documented Date Episodic/Chronic Conditions associated with dizziness or vertigo (2 sources) Dizziness and giddiness; Translations: [Dizziness and giddiness] Onset: 03-05-2017 Episodic Contraceptive and procreative management (2 sources) Tubal ligation status; Translations: [Tubal ligation status] Onset: 02-13-2017 Episodic Deficiency and other anemia (1 source) Anemia, unspecified; Translations: [Anemia, unspecified] Onset: 06-21-2024 Episodic Noninfectious gastroenteritis (2 sources) Noninfective gastroenteritis and colitis, unspecified; Translations: [Noninfective gastroenteritis and colitis, unspecified] Onset: 02-13-2017 Episodic Nonspecific chest pain (2 sources) Chest pain, unspecified; Translations: [Chest pain, unspecified] Onset: 02-13-2017 Episodic Other aftercare (4 sources) FPC (current) use of aspirin; Translations: [FPC (current) use of insulin] Onset: 02-13-2017 Episodic Other circulatory disease (2 sources) Hypotension, unspecified; Translations: [Hypotension, unspecified] Onset: 02-13-2017 Episodic Other injuries and conditions due to external causes (2 sources) History of falling; Translations: [History of falling] Onset: 02-13-2017 Episodic Other lower respiratory disease (1 source) Shortness of breath; Translations: [Shortness of breath] Onset: 04-03-2024 Episodic Screening or history of mental health and substance abuse (2 sources) Personal history of nicotine dependence; Translations: [Personal history of nicotine dependence] Onset: 02-13-2017 Episodic Unclassified (1 source) R53.83 Onset: 02-18-2017 Unclassified (14 sources) fx right shoulder 03-20-2022 Results Test Name Value Interpretation Reference Range Facility Absolute lymphocyte countOrd ered By: Abdirashid Cano on 02-15-2025 Lymphocytes Auto (Unsp spec) [#/Vol] 3.52 10*3/uL 0.83-4.51 [facility] Absolute neutrophil countOrd ered By: Abdirashid Cano on 02-15-2025 Neutrophils (Bld) [#/Vol] 4.6 10*3/uL 2.0-7.7 [facility] Anion gap in Serum or Plasma Ordered By: Abdirashid Cano on 02-15-2025 Anion gap [Moles/Vol] 15 mmol/L 5-15 [facility] Automated lymphocyte count a s percentage of total leukocytesOrdered By: Abdirashid Cano on 02-15-2025 Lymphocytes/100 WBC Auto (Unsp spec) 38.6 % 19-41 [facility] BUN/creatinine ratioOrdered By: Abdirashid Cano on 02-15-2025 Urea nitrogen/Creatinine [Mass ratio] 25.3 mg/mg High 10-20 [facility] Basophil percentageOrdered B y: Abdirashid Cano on 02-15-2025 Basophils/100 WBC (Bld) 0.4 % 0-1 [facility] Bilirubin Test strip Ql (U)O rdered By: Abdirashid Cano on 02-15-2025 Bilirubin Ql (U) Negative Negative [facility] Bilirubin, totalOrdered By: Abdirashid Cano on 02-15-2025 Bilirubin [Mass/Vol] 2.68 mg/dL High 0.00-1.30 [facility] Carbon dioxide, total [Moles /volume] in Central venous bloodOrdered By: Abdirashid Cano on 02-15-2025 CO2 [Moles/Vol] 18.1 mmol/L Low 21.0-32.0 [facility] Chloride assayOrdered By: Anurag Cano on 02-15-2025 Chloride [Moles/Vol] 100 mmol/L 98-108 [facility] Eosinophil percentageOrdered By: Abdirashid Cano on 02-15-2025 Eosinophils/100 WBC (Bld) 1.8 % 0-5 [facility] Erythrocyte distribution wid th ratioOrdered By: Abdirashid Cano on 02-15-2025 Erythrocyte distribution width (RBC) [Ratio] 14.1 % 11.6-14.6 [facility] Erythrocyte distribution wid th standard deviationOrdered By: Abdirashid Cano on 02-15-2025 Erythrocyte distribution width (RBC) [Ratio] 42.4 fl 35.1-43.9 [facility] Glomerular filtration rate ( GFR) estimation/1.73 sq m using serum, plasma, or whole bOrdered By: Abdirashid Cano on 02-15-2025 GFR/1.73 sq M.predicted among non-blacks MDRD (S/P/Bld) [Vol rate/Area] 80 mL/min/{1.73_m2} >60 [facility] Comment on above: mL/min/1.73m2 CKD-EP I Creatinine Equation (2020) Hematocrit Auto (Bld) [Volum e fraction]Ordered By: Abdirashid Cano on 02-15-2025 Hematocrit (Bld) [Volume fraction] 24.0 % Low 37-47 [facility] Hemoglobin measurementOrdere d By: Abdirashid Cano on 02-15-2025 Hemoglobin (Bld) [Mass/Vol] 8.7 g/dL Low 12.0-15.0 [facility] Immature granulocytes/100 WB C Auto (Bld)Ordered By: Abdirashid Cano on 02-15-2025 Immature granulocytes/100 WBC (Bld) 0.300 % 0.0-0.9 [facility] Comment on above: IG% - Immature Granu locytes (promyelocytes, myelocytes and metamyelocytes) > 1% indicates that a LEFT SHIFT is Present. Ketones Test strip Ql (U)Ord ered By: Abdirashid Cano on 02-15-2025 Ketones Ql (U) 15 mg/dl High Negative [facility] Laboratory - Chemistry and C hemistry - challengeOrdered By: Abdirashid Cano on 02-15-2025 AST [Catalytic activity/Vol] 33 U/L High <32 [facility] MCV (mean corpuscular volume ) determinationOrdered By: Abdirashid Cano on 02-15-2025 MCV (RBC) [Entitic vol] 88.6 fL 81-99 [facility] Mean corpuscular hemoglobin (MCH) determinationOrdered By: Abdirashid Cano on 02-15-2025 MCH (RBC) [Entitic mass] 32.1 pg High 27.0-32.0 [facility] Mean corpuscular hemoglobin concentration (MCHC) determinationOrdered By: Abdirashid Cano on 02-15-2025 MCHC (RBC) [Mass/Vol] 36.3 g/dL High 32-36 [facility] Mean platelet volume determi nationOrdered By: Abdirashid Cano on 02-15-2025 Platelet mean volume (Bld) [Entitic vol] 9.6 fL 6.2-12.0 [facility] Microscopic analysis of urin e for red blood cells (RBC)Ordered By: Abdirashid Cano on 02-15-2025 Microscopic analysis of urine for red blood cells (RBC) 0-5 SEEN /hpf 0-5 [facility] Monocyte percentageOrdered B y: Abdirashid Cano on 02-15-2025 Monocytes/100 WBC (Bld) 8.7 % 0-10 [facility] Mucus LM Ql (Urine sed)Order ed By: Abdirashid Cano on 02-15-2025 Mucus Ql (Urine sed) 0 SEEN /hpf [facility] Neutrophil percentageOrdered By: Abdirashid Cano on 02-15-2025 Neutrophils/100 WBC (Bld) 50.2 % 47-70 [facility] Nitrite Test strip Ql (U)Ord ered By: Abdirashid Cano on 02-15-2025 Nitrite Ql (U) Negative Negative [facility] Nucleated red blood cell per centageOrdered By: Abdirashid Cano on 02-15-2025 Nucleated RBC/100 WBC (Bld) [Ratio] 0 % 0-5 [facility] Platelet countOrdered By: Anurag Cano on 02-15-2025 Platelets (Bld) [#/Vol] 258 10*3/uL 150-450 [facility] Potassium measurement (mass/ volume)Ordered By: Abdirashid Cano on 02-15-2025 Potassium (Unsp spec) [Mass/Vol] 3.7 mmol/L 3.3-5.1 [facility] Protein Test strip Ql (U)Ord ered By: Abdirashid Cano on 02-15-2025 Protein Ql (U) 30 mg/dl High Negative [facility] RBC Auto (Bld) [#/Vol]Ordere d By: Abdirashid Cano on 02-15-2025 RBC (Bld) [#/Vol] 2.71 10*6/uL Low 4.2-5.4 [facility] Serum creatinine measurement (mass/volume)Ordered By: Abdirashid Cano on 02-15-2025 Creatinine [Mass/Vol] 0.76 mg/dL 0.70-1.20 [facility] Serum globulin measurementOr dered By: Abdirashid aCno on 02-15-2025 Globulin (S) [Mass/Vol] 3.7 g/dL 2.2-4.2 [facility] Serum glucose measurement (m ass/volume)Ordered By: Abdirashid Cano on 02-15-2025 Glucose [Mass/Vol] 155 mg/dL High 70-[address] [facility] Serum or plasma alanine cornejo otransferase (ALT) measurementOrdered By: Abdirashid Cano on 02-15-2025 ALT [Catalytic activity/Vol] U/L <35 [facility] Serum or plasma albumin sabino urement (mass/volume)Ordered By: Abdirashid Cano on 02-15-2025 Albumin [Mass/Vol] 3.0 g/dL Low 3.4-4.[address] [facility] Serum or plasma albumin/glob ulin mass ratioOrdered By: Abdirashid Cano on 02-15-2025 Albumin/Globulin [Mass ratio] 0.8 {ratio} Low 0.9-2.4 [facility] Serum or plasma alkaline shaista sphatase measurementOrdered By: Abdirashid Cano on 02-15-2025 ALP [Catalytic activity/Vol] 77 U/L 35-104 [facility] Serum or plasma calcium sabino urement (mass/volume)Ordered By: Abdirashid Cano on 02-15-2025 Calcium [Mass/Vol] 8.7 mg/dL 7.6-11.[address] [facility] Serum or plasma urea nitroge n measurement (mass/volume)Ordered By: Abdirashid Cano on 02-15-2025 Urea nitrogen [Mass/Vol] 19 mg/dL 4-19 [facility] Sodium levelOrdered By: Judith Cano on 02-15-2025 Sodium [Moles/Vol] 133 mmol/L 133-[address] [facility] Squamous epithelial cells de tection in urine sediment by light microscopyOrdered By: Abdirashid Cano on 02-15-2025 Epithelial cells.squamous LM Ql (Urine sed) 5-10 SEEN /hpf 5-10 [facility] Total proteinOrdered By: Ronak Cano on 02-15-2025 Protein [Mass/Vol] 6.8 g/dL 5.9-8.[address] [facility] Urine clarityOrdered By: Ronak Cano on 02-15-2025 Clarity (U) Clear Clear [facility] Urine color determinationOrd ered By: Abdirashid Cano on 02-15-2025 Color (U) Straw Yellow [facility] Urine glucose detectionOrder ed By: Abdirashid Cano on 02-15-2025 Glucose Ql (U) Normal mg/dl Normal [facility] Urine leukocyte esterase det ection by dipstickOrdered By: Abdirashid Cano on 02-15-2025 Leukocyte esterase Test strip Ql (U) Negative Negative [facility] Urine pHOrdered By: Abdirashid walden on 02-15-2025 pH (U) 6.5 [pH] 5.0 - 8.0 [facility] Urine sediment bacteria coun t by microscopy (number/high power field)Ordered By: Abdirashid Cano on 02-15-2025 Bacteria LM.HPF (Urine sed) [#/Area] 0 /[HPF] None Seen [facility] Urine specific gravity measu rementOrdered By: Abdirashid Cano on 02-15-2025 Specific gravity (U) [Rel density] 1.010 1.002-1.030 [facility] Urine urobilinogen measureme ntOrdered By: Abdirashid Cano on 02-15-2025 Urobilinogen Ql (U) 8 mg/dl High Normal [facility] White blood cell (WBC) count Ordered By: Abdirashid Cano on 02-15-2025 WBC (Bld) [#/Vol] 9.1 10*3/uL 4.4-11.[address] [facility] White blood cell countOrdere d By: Abdirashid Cano on 02-15-2025 White blood cell count 0-5 SEEN /hpf 0-5 [facility] CBC W/Diff, Automatedon 05-0 Absolute Neut Normal 2.0-7.7 [facility] Comment on above: Result Comment: WAS UTO, WILL COME BACK ANOTHER DAY Performed By: #### L 100.0100, L500.4100, L500.4050 #### [facility] [address] [place], [address] HCT Normal 37-47 [facility] Comment on above: Result Comment: WAS UTO, WILL COME BACK ANOTHER DAY Performed By: #### L 100.0100, L500.4100, [id number] #### [facility] [address] [place], [place], [address] HGB Normal 12.0-15.0 [facility] Comment on above: Result Comment: WAS UTO, WILL COME BACK ANOTHER DAY Performed By: #### L 100.0100, L500.4100, L500.4050 #### [facility] [address] [place], [address] MCH Normal 27.0-32.0 [facility] Comment on above: Result Comment: WAS UTO, WILL COME BACK ANOTHER DAY Performed By: #### L 100.0100, L500.4100, L500.4050 #### [facility] [address] [place], [address] MCHC Normal 32-36 [facility] Comment on above: Result Comment: WAS UTO, WILL COME BACK ANOTHER DAY Performed By: #### L 100.0100, L500.4100, L500.4050 #### [facility] [address] [place], [address] MCV Normal 81-99 [facility] Comment on above: Result Comment: WAS UTO, WILL COME BACK ANOTHER DAY Performed By: #### L 100.0100, L500.4100, L500.4050 #### [facility] [address] [place], [address] NEUT% Normal 47-70 [facility] Comment on above: Result Comment: WAS UTO, WILL COME BACK ANOTHER DAY Performed By: #### L 100.0100, L500.4100, L500.4050 #### [facility] [address] [place], [address] PLT Normal 150-450 [facility] Comment on above: Result Comment: WAS UTO, WILL COME BACK ANOTHER DAY Performed By: #### L 100.0100, L500.4100, L500.4050 #### [facility] [address] [place], [address] RBC Normal 4.2-5.4 [facility] Comment on above: Result Comment: WAS UTO, WILL COME BACK ANOTHER DAY Performed By: #### L 100.0100, L500.4100, L500.4050 #### [facility] [address] [place], [address] RDW CV Normal 11.6-14.6 [facility] Comment on above: Result Comment: WAS UTO, WILL COME BACK ANOTHER DAY Performed By: #### L 100.0100, L500.4100, L500.4050 #### [facility] [address] [place], [address] RDW SD Normal 35.1-43.9 [facility] Comment on above: Result Comment: WAS UTO, WILL COME BACK ANOTHER DAY Performed By: #### L 100.0100, L500.4100, L500.4050 #### [facility] [address] [place], [address] WBC Normal 4.4-11.0 [facility] Comment on above: Result Comment: WAS UTO, WILL COME BACK ANOTHER DAY Performed By: #### L 100.0100, L500.4100, L500.4050 #### [facility] [address] [place], [address] Comprehensive Metabolic Prof ilon 12-27-2024 ALB Normal 3.4-4.8 [facility] Comment on above: Result Comment: WAS UTO, WILL COME BACK ANOTHER DAY Performed By: #### L 100.0100, L500.4100, L500.4050 #### [facility] [address] [place], [address] ALK PHOS Normal 35-104 [facility] Comment on above: Result Comment: WAS UTO, WILL COME BACK ANOTHER DAY Performed By: #### L 100.0100, L500.4100, L500.4050 #### [facility] [address] [place], [address] ALT Normal <=34 [facility] Comment on above: Result Comment: WAS UTO, WILL COME BACK ANOTHER DAY Performed By: #### L 100.0100, L500.4100, L500.4050 #### [facility] [address] [place], [address] AST Normal <=31 [facility] Comment on above: Result Comment: WAS UTO, WILL COME BACK ANOTHER DAY Performed By: #### L 100.0100, L500.4100, L500.4050 #### [facility] [address] [place], [address] BUN Normal 4-19 [facility] Comment on above: Result Comment: WAS UTO, WILL COME BACK ANOTHER DAY Performed By: #### L 100.0100, L500.4100, L500.4050 #### [facility] [address] [place], [address] BUN/CRE Normal 10-20 [facility] Comment on above: Result Comment: WAS UTO, WILL COME BACK ANOTHER DAY Performed By: #### L 100.0100, L500.4100, L500.4050 #### [facility] [address] [place], [address] Calcium Normal 7.6-11.0 [facility] Comment on above: Result Comment: WAS UTO, WILL COME BACK ANOTHER DAY Performed By: #### L 100.0100, L500.4100, L500.4050 #### [facility] [address] [place], [address] CL Normal 98-108 [facility] Comment on above: Result Comment: WAS UTO, WILL COME BACK ANOTHER DAY Performed By: #### L 100.0100, L500.4100, L500.4050 #### [facility] [address] [place], [address] CO2 Normal 21.0-32.0 [facility] Comment on above: Result Comment: WAS UTO, WILL COME BACK ANOTHER DAY Performed By: #### L 100.0100, L500.4100, L500.4050 #### [facility] [address] [place], [address] CREAT,SERUM Normal 0.70-1.20 [facility] Comment on above: Result Comment: WAS UTO, WILL COME BACK ANOTHER DAY Performed By: #### L 100.0100, L500.4100, L500.4050 #### [facility] [address] [place], [address] eGFR Normal >60 [facility] Comment on above: Result Comment: WAS UTO, WILL COME BACK ANOTHER DAY Performed By: #### L 100.0100, L500.4100, L500.4050 #### [facility] [address] [place], [address] GAP Normal 5-15 [facility] Comment on above: Result Comment: WAS UTO, WILL COME BACK ANOTHER DAY Performed By: #### L 100.0100, L500.4100, L500.4050 #### [facility] [address] [place], [address] GLU Normal 70-99 [facility] Comment on above: Result Comment: WAS UTO, WILL COME BACK ANOTHER DAY Performed By: #### L 100.0100, L500.4100, L500.4050 #### [facility] [address] [place], [address] Potassium Normal 3.3-5.1 [facility] Comment on above: Result Comment: WAS UTO, WILL COME BACK ANOTHER DAY Performed By: #### L 100.0100, L500.4100, L500.4050 #### [facility] [address] [place], [address] T BILI Normal 0.00-1.30 [facility] Comment on above: Result Comment: WAS UTO, WILL COME BACK ANOTHER DAY Performed By: #### L 100.0100, L500.4100, L500.4050 #### [facility] [address] [place], [address] T PROT Normal 5.9-8.4 [facility] Comment on above: Result Comment: WAS UTO, WILL COME BACK ANOTHER DAY Performed By: #### L 100.0100, L500.4100, L500.4050 #### [facility] [address] [place], [address] Comprehensive Metabolic Profil Normal 133-145 [facility] Comment on above: Result Comment: WAS UTO, WILL COME BACK ANOTHER DAY Performed By: #### L 100.0100, L500.4100, L500.4050 #### [facility] [address] [place], [address] Lipid Profileon 12-27-2024 CHOL Normal <=200 [facility] Comment on above: Result Comment: WAS UTO, WILL COME BACK ANOTHER DAY Performed By: #### L 100.0100, L500.4100, L500.4050 #### [facility] [address] [place], [address] CHOL:HDL Normal [facility] Comment on above: Result Comment: WAS UTO, WILL COME BACK ANOTHER DAY Performed By: #### L 100.0100, L500.4100, L500.4050 #### [facility] [address] [place], [address] CLDL Normal [facility] Comment on above: Result Comment: WAS UTO, WILL COME BACK ANOTHER DAY Performed By: #### L 100.0100, L500.4100, L500.4050 #### [facility] [address] [place], [address] HDL Normal [facility] Comment on above: Result Comment: WAS UTO, WILL COME BACK ANOTHER DAY Performed By: #### L 100.0100, L500.4100, L500.4050 #### [facility] [address] [place], [address] TRIG Normal [facility] Comment on above: Result Comment: WAS UTO, WILL COME BACK ANOTHER DAY Performed By: #### L 100.0100, L500.4100, L500.4050 #### [facility] [address] [place], [address] VLDL Normal 5-40 [facility] Comment on above: Result Comment: WAS UTO, WILL COME BACK ANOTHER DAY Performed By: #### L 100.0100, L500.4100, L500.4050 #### [facility] [address] [place], [address] Absolute lymphocyte countOrd ered By: Bebeto Santana on 09-25-2024 Lymphocytes Auto (Unsp spec) [#/Vol] 2.89 10*3/uL 0.83-4.51 [facility] Absolute neutrophil countOrd ered By: Bebeto Santana on 09-25-2024 Neutrophils (Bld) [#/Vol] 4.6 10*3/uL 2.0-7.7 [facility] Albumin to globulin ratioOrd ered By: Bebeto Santana on 09-25-2024 Albumin/Globulin [Mass ratio] 0.7 {ratio} Low 0.9-2.4 [facility] Automated lymphocyte count a s percentage of total leukocytesOrdered By: Bebeot Santana on 09-25-2024 Lymphocytes/100 WBC Auto (Unsp spec) 33.8 % 19-41 [facility] Basophil percentageOrdered B y: Bebeto Santana on 09-25-2024 Basophils/100 WBC (Bld) 0.5 % 0-1 [facility] Bilirubin, totalOrdered By: Bebeto Santana on 09-25-2024 Bilirubin [Mass/Vol] 1.10 mg/dL High 0.20-1.00 [facility] Comment on above: For patients on eltr ombopag therapy, use of Dimension [place] TBIL is not recommended. Blood urea nitrogen (BUN)/cr eatinine ratioOrdered By: Bebeto Santana on 09-25-2024 Urea nitrogen/Creatinine [Mass ratio] 17.2 mg/mg 10-20 [facility] CBC W/Diff, Automatedon Absolute Lymph 2.89 X10 3/uL Normal 0.83-4.51 [facility] Comment on above: Performed By: #### L 500.4050, L100.0100, L502.0250, L501.9520, L501.9985, L506.1000, L500.4100 #### [facility] [address] [place], [address] Absolute Neut 4.6 X10 3/uL Normal 2.0-7.7 [facility] Comment on above: Performed By: #### L 500.4050, L100.0100, L502.0250, L501.9520, L501.9985, L506.1000, L500.4100 #### [facility] [address] [place], [address] Basophils/100 WBC (Bld) 0.5 % Normal 0-1 [facility] Comment on above: Performed By: #### L 500.4050, L100.0100, L502.0250, L501.9520, L501.9985, L506.1000, L500.4100 #### [facility] [address] [place], [address] Eosinophils/100 WBC (Bld) 2.6 % Normal 0-5 [facility] Comment on above: Performed By: #### L 500.4050, L100.0100, L502.0250, L501.9520, L501.9985, L506.1000, L500.4100 #### [facility] [address] [place], [address] Erythrocyte distribution width (RBC) [Ratio] 13.6 % Normal 11.6-14.6 [facility] Comment on above: Performed By: #### L 500.4050, L100.0100, L502.0250, L501.9520, L501.9985, L506.1000, L500.4100 #### [facility] [address] [place], [address] Hematocrit (Bld) [Volume fraction] 31.9 % Low 37-47 [facility] Comment on above: Performed By: #### L 500.4050, L100.0100, L502.0250, L501.9520, L501.9985, L506.1000, L500.4100 #### [facility] [address] [place], [address] Hemoglobin (Bld) [Mass/Vol] 11.4 g/dL Low 12.0-15.0 [facility] Comment on above: Performed By: #### L 500.4050, L100.0100, L502.0250, L501.9520, L501.9985, L506.1000, L500.4100 #### [facility] [address] [place], [address] IG% 0.200 Normal 0.0-0.9 [facility] Comment on above: Result Comment: IG% - Immature Granulocytes (promyelocytes, myelocytes and metamyelocytes) > 1% indicates that a LEFT SHIFT is Present. Performed By: #### L 500.4050, L100.0100, L502.0250, L501.9520, L501.9985, L506.1000, L500.4100 #### [facility] [address] [place], [address] Lymphocytes/100 WBC (Bld) 33.8 % Normal 19-41 [facility] Comment on above: Performed By: #### L 500.4050, L100.0100, L502.0250, L501.9520, L501.9985, L506.1000, L500.4100 #### [facility] [address] [place], [address] MCH (RBC) [Entitic mass] 31.6 pg Normal 27.0-32.0 [facility] Comment on above: Performed By: #### L 500.4050, L100.0100, L502.0250, L501.9520, L501.9985, L506.1000, L500.4100 #### [facility] [address] [place], [address] MCHC (RBC) [Mass/Vol] 35.7 g/dL Normal 32-36 [facility] Comment on above: Performed By: #### L 500.4050, L100.0100, L502.0250, L501.9520, L501.9985, L506.1000, L500.4100 #### [facility] [address] [place], [address] MCV (RBC) [Entitic vol] 88.4 fL Normal 81-99 [facility] Comment on above: Performed By: #### L 500.4050, L100.0100, L502.0250, L501.9520, L501.9985, L506.1000, L500.4100 #### [facility] [address] [place], [address] Monocytes/100 WBC (Bld) 9.6 % Normal 0-10 [facility] Comment on above: Performed By: #### L 500.4050, L100.0100, L502.0250, L501.9520, L501.9985, L506.1000, L500.4100 #### [facility] [address] [place], [address] Neutrophils/100 WBC (Bld) 53.3 % Normal 47-70 [facility] Comment on above: Performed By: #### L 500.4050, L100.0100, L502.0250, L501.9520, L501.9985, L506.1000, L500.4100 #### [facility] [address] [place], [address] Nucleated RBC (Bld) [#/Vol] 0 10*3/uL Normal 0-5 [facility] Comment on above: Performed By: #### L 500.4050, L100.0100, L502.0250, L501.9520, L501.9985, L506.1000, L500.4100 #### [facility] [address] [place], [address] Platelet mean volume (Bld) [Entitic vol] 10.0 fL Normal 6.2-12.0 [facility] Comment on above: Performed By: #### L 500.4050, L100.0100, L502.0250, L501.9520, L501.9985, L506.1000, L500.4100 #### [facility] [address] [place], [address] Platelets (Bld) [#/Vol] 225 10*3/uL Normal 150-450 [facility] Comment on above: Performed By: #### L 500.4050, L100.0100, L502.0250, L501.9520, L501.9985, L506.1000, L500.4100 #### [facility] [address] [place], [address] RBC (Bld) [#/Vol] 3.61 10*6/uL Low 4.2-5.4 [facility] Comment on above: Performed By: #### L 500.4050, L100.0100, L502.0250, L501.9520, L501.9985, L506.1000, L500.4100 #### [facility] [address] [place], [place], [address] RDW SD 42.6 fl Normal 35.1-43.9 [facility] Comment on above: Performed By: #### L 500.4050, L100.0100, L502.0250, L501.9520, L501.9985, L506.1000, L500.4100 #### [facility] [address] [place], [place], [address] WBC (Bld) [#/Vol] 8.6 10*3/uL Normal 4.4-11.[address] [facility] Comment on above: Performed By: #### L 500.4050, L100.0100, L502.0250, L501.9520, L501.9985, L506.1000, L500.4100 #### [facility] [address] [place], [address] Carbon dioxide measurementOr dered By: Bebeto Santana on 09-25-2024 CO2 [Moles/Vol] 24.0 mmol/L 21.0-32.0 [facility] Chloride measurementOrdered By: Bebeto Santana on 09-25-2024 Chloride [Moles/Vol] 104 mmol/L 98-107 [facility] Comprehensive Metabolic Prof ilon 09-25-2024 Albumin [Mass/Vol] 3.2 g/dL Normal 3.2-5.[address] [facility] Comment on above: Performed By: #### L 500.4050, L100.0100, L502.0250, L501.9520, L501.9985, L506.1000, L500.4100 #### [facility] [address] [place], [address] Albumin/Globulin [Mass ratio] 0.7 {ratio} Low 0.9-2.4 [facility] Comment on above: Performed By: #### L 500.4050, L100.0100, L502.0250, L501.9520, L501.9985, L506.1000, L500.4100 #### [facility] [address] [place], [address] ALK P 89 U/L Normal 45-117 [facility] Comment on above: Performed By: #### L 500.4050, L100.0100, L502.0250, L501.9520, L501.9985, L506.1000, L500.4100 #### [facility] [address] [place], [address] ALT [Catalytic activity/Vol] 18 U/L Normal 13-56 [facility] Comment on above: Performed By: #### L 500.4050, L100.0100, L502.0250, L501.9520, L501.9985, L506.1000, L500.4100 #### [facility] [address] [place], [address] AST [Catalytic activity/Vol] 26 U/L Normal 15-37 [facility] Comment on above: Performed By: #### L 500.4050, L100.0100, L502.0250, L501.9520, L501.9985, L506.1000, L500.4100 #### [facility] [address] [place], [address] Bilirubin [Mass/Vol] 1.10 mg/dL High 0.20-1.00 [facility] Comment on above: Result Comment: For patients on eltrombopag therapy, use of Dimension [place] TBIL is not recommended. Performed By: #### L 500.4050, L100.0100, L502.0250, L501.9520, L501.9985, L506.1000, L500.4100 #### [facility] [address] [place], [address] BUN/CRE 17.2 RATIO Normal 10-20 [facility] Comment on above: Performed By: #### L 500.4050, L100.0100, L502.0250, L501.9520, L501.9985, L506.1000, L500.4100 #### [facility] [address] [place], [address] CA,Total 9.0 mg/dL Normal 8.5-10.1 [facility] Comment on above: Performed By: #### L 500.4050, L100.0100, L502.0250, L501.9520, L501.9985, L506.1000, L500.4100 #### [facility] [address] [place], [address] Chloride [Moles/Vol] 104 mmol/L Normal 98-107 [facility] Comment on above: Performed By: #### L 500.4050, L100.0100, L502.0250, L501.9520, L501.9985, L506.1000, L500.4100 #### [facility] [address] [place], [address] CO2 [Moles/Vol] 24.0 mmol/L Normal 21.0-32.0 [facility] Comment on above: Performed By: #### L 500.4050, L100.0100, L502.0250, L501.9520, L501.9985, L506.1000, L500.4100 #### [facility] [address] [place], [address] Creatinine [Mass/Vol] 0.87 mg/dL Normal 0.55-1.02 [facility] Comment on above: Result Comment: The validity of the calculated GFR GFRAA in patients over 70 years has not been determined. Clinical correlation is essential. Performed By: #### L 500.4050, L100.0100, L502.0250, L501.9520, L501.9985, L506.1000, L500.4100 #### [facility] [address] [place], [address] EST GFR - AA 81 mL/min Normal >60 [facility] Comment on above: Result Comment: Afri can [place] GFR Calc Performed By: #### L 500.4050, L100.0100, L502.0250, L501.9520, L501.9985, L506.1000, L500.4100 #### [facility] [address] [place], [address] GAP 9 Normal 5-15 [facility] Comment on above: Performed By: #### L 500.4050, L100.0100, L502.0250, L501.9520, L501.9985, L506.1000, L500.4100 #### [facility] [address] [place], [address] GFR/1.73 sq M.predicted among non-blacks MDRD (S/P/Bld) [Vol rate/Area] 67 mL/min/{1.73_m2} Normal >60 [facility] Comment on above: Result Comment: Non- GFR Calc Performed By: #### L 500.4050, L100.0100, L502.0250, L501.9520, L501.9985, L506.1000, L500.4100 #### [facility] [address] [place], [address] Globulin (S) [Mass/Vol] 4.3 g/dL High 2.2-4.2 [facility] Comment on above: Performed By: #### L 500.4050, L100.0100, L502.0250, L501.9520, L501.9985, L506.1000, L500.4100 #### [facility] [address] [place], [address] Glucose [Mass/Vol] 176 mg/dL High 74-[address] [facility] Comment on above: Result Comment: Fast ing Glucose result greater than or equal to 126 mg/dL suggests DIABETES MELLITUS per A.D.A. criteria. Performed By: #### L 500.4050, L100.0100, L502.0250, L501.9520, L501.9985, L506.1000, L500.4100 #### [facility] [address] [place], [address] Potassium [Moles/Vol] 3.3 mmol/L Low 3.5-5.1 [facility] Comment on above: Performed By: #### L 500.4050, L100.0100, L502.0250, L501.9520, L501.9985, L506.1000, L500.4100 #### [facility] [address] [place], [address] Sodium [Moles/Vol] 137 mmol/L Normal 136-[address] [facility] Comment on above: Performed By: #### L 500.4050, L100.0100, L502.0250, L501.9520, L501.9985, L506.1000, L500.4100 #### [facility] [address] [place], [address] T PROT 7.5 g/dL Normal 6.4-8.2 [facility] Comment on above: Performed By: #### L 500.4050, L100.0100, L502.0250, L501.9520, L501.9985, L506.1000, L500.4100 #### [facility] [address] [place], [address] Urea nitrogen [Mass/Vol] 15 mg/dL Normal 7-18 [facility] Comment on above: Performed By: #### L 500.4050, L100.0100, L502.0250, L501.9520, L501.9985, L506.1000, L500.4100 #### [facility] [address] [place], [address] Eosinophil percentageOrdered By: Bebeto Santana on 09-25-2024 Eosinophils/100 WBC (Bld) 2.6 % 0-5 [facility] Erythrocyte distribution wid th ratioOrdered By: Bebeto Santana on 09-25-2024 Erythrocyte distribution width (RBC) [Ratio] 13.6 % 11.6-14.6 [facility] Erythrocyte distribution wid th standard deviationOrdered By: [facility] Erythrocyte distribution width (RBC) [Ratio] 42.6 fl 35.1-43.9 [facility] Glomerular filtration rate ( GFR) estimationOrdered By: [facility] on [facility]-2024 GFR/1.73 sq M.predicted among non-blacks MDRD (S/P/Bld) [Vol rate/Area] 67 mL/min/{1.73_m2} >60 [facility] Comment on above: Non- GFR Calc Glucose measurementOrdered B y: Bebeto Santana on 09-25-2024 Glucose [Mass/Vol] 176 mg/dL High 74-[address] [facility] Comment on above: Fasting Glucose resu lt greater than or equal to 126 mg/dL suggests DIABETES MELLITUS per A.D.A. criteria. Hematocrit Auto (Bld) [Volum e fraction]Ordered By: Bebeto Santana on 09-25-2024 Hematocrit (Bld) [Volume fraction] 31.9 % Low 37-47 [facility] Hemoglobin A1c percentageOrd ered By: Bebeto Santana on 09-25-2024 HbA1c (Bld) [Mass fraction] 4.7 % Normal 3.8-5.6 [facility] Comment on above: Normal < 5.7 % Predi abetic 5.7 - 6.4 % Diabetic >or= 6.5 % Please note range changes. Result Comment: Norm al < 5.7 % Prediabetic 5.7 - 6.4 % Diabetic >or= 6.5 % Please note range changes. Performed By: #### L 500.4050, L100.0100, L502.0250, L501.9520, L501.9985, L506.1000, L500.4100 #### [facility] [address] [place], [place] [address]. [place], [place], [id number] Hemoglobin measurementOrdere d By: Bebeto Santana on 09-25-2024 Hemoglobin (Bld) [Mass/Vol] 11.4 g/dL Low 12.0-15.0 [facility] High density lipoprotein (HD L) measurementOrdered By: Bebeto Santana on 09-25-2024 Cholesterol in HDL [Mass/Vol] 50 mg/dL >40 [facility] Comment on above: The drugs N-Acetylcy steine and Metamizole may falsely depress this assay. Reference Range HDL <40 mg/dL Low HDL Cholesterol HDL >or= 60 mg/dL High HDL Cholesterol Immature granulocytes/100 WB C Auto (Bld)Ordered By: Bebeto Santana on 09-25-2024 Immature granulocytes/100 WBC (Bld) 0.200 % 0.0-0.9 [facility] Comment on above: IG% - Immature Granu locytes (promyelocytes, myelocytes and metamyelocytes) > 1% indicates that a LEFT SHIFT is Present. Laboratory - Chemistry and C hemistry - challengeOrdered By: Bebeto Santana on 09-25-2024 AST [Catalytic activity/Vol] 26 U/L 15-37 [facility] Lipid Profileon 09-25-2024 Cholesterol [Mass/Vol] 158 mg/dL Normal 200 [facility] Comment on above: Result Comment: <200 mg/dL Desirable 200-240 mg/dL Borderline >240 mg/dL High Risk Performed By: #### L 500.4050, L100.0100, L502.0250, L501.9520, L501.9985, L506.1000, L500.4100 #### [facility] [address] [place], [address] Cholesterol in HDL [Mass/Vol] 50 mg/dL Normal [facility] Comment on above: Result Comment: The drugs N-Acetylcysteine and Metamizole may falsely depress this assay. Reference Range HDL <40 mg/dL Low HDL Cholesterol HDL >or= 60 mg/dL High HDL Cholesterol Performed By: #### L 500.4050, L100.0100, L502.0250, L501.9520, L501.9985, L506.1000, L500.4100 #### [facility] [address] [place], [address] Cholesterol in LDL [Mass/Vol] 85 mg/dL Normal 0-130 [facility] Comment on above: Performed By: #### L 500.4050, L100.0100, L502.0250, L501.9520, L501.9985, L506.1000, L500.4100 #### [facility] [address] [facility] [place], [address] Cholesterol in VLDL [Mass/Vol] 23 mg/dL Normal 5-40 [facility] Comment on above: Performed By: #### L 500.4050, L100.0100, L502.0250, L501.9520, L501.9985, L506.1000, L500.4100 #### [facility] [address] [place], [address] Triglyceride [Mass/Vol] 114 mg/dL Normal [facility] Comment on above: Result Comment: The drugs N-Acetylcysteine and Metamizole may falsely depress this assay. Serum Triglycerides Reference Interval Normal <150 mg/dL Borderline high 150 - 199 mg/dL High 200 - 499 mg/dL Very High > or = 500 mg/dL Performed By: #### L 500.4050, L100.0100, L502.0250, L501.9520, L501.9985, L506.1000, L500.4100 #### [facility] [address] [place], [address] Low density lipoprotein (LDL ) cholesterol measurementOrdered By: Bebeto Santana on 09-25-2024 Cholesterol in LDL [Mass/Vol] 85 mg/dL 0-130 [facility] MCV (mean corpuscular volume ) determinationOrdered By: Bebeto Santana on 09-25-2024 MCV (RBC) [Entitic vol] 88.4 fL 81-99 [facility] Mean corpuscular hemoglobin (MCH) determinationOrdered By: Bebeto Santana on 09-25-2024 MCH (RBC) [Entitic mass] 31.6 pg 27.0-32.0 [facility] Mean corpuscular hemoglobin concentration (MCHC) determinationOrdered By: Bebeto Santana on 09-25-2024 MCHC (RBC) [Mass/Vol] 35.7 g/dL 32-36 [facility] Mean platelet volume determi nationOrdered By: Bebeto Santana on 09-25-2024 Platelet mean volume (Bld) [Entitic vol] 10.0 fL 6.2-12.0 [facility] Microalb:Creat Ratio,Random URon 09-25-2024 MALB:CRE Normal <30 mg/g CRE [facility] Comment on above: Result Comment: UTO Performed By: #### L 500.4050, L100.0100, L502.0250, L501.9520, L501.9985, L506.1000, L500.4100 #### [facility] [address] [place], [place], [id number] MICROALBUMIN,UR Normal NO RANGE EST. [facility] Comment on above: Result Comment: UTO Performed By: #### L 500.4050, L100.0100, L502.0250, L501.9520, L501.9985, L506.1000, L500.4100 #### [facility] [address] [place], [place], [id number] ([phone]) Monocyte percentageOrdered B y: Bebeto Santana on 09-25-2024 Monocytes/100 WBC (Bld) 9.6 % 0-10 [facility] Neutrophil percentageOrdered By: Bebeto Santana on 09-25-2024 Neutrophils/100 WBC (Bld) 53.3 % 47-70 [facility] Nucleated red blood cell per centageOrdered By: Bebeto Santana on 09-25-2024 Nucleated RBC/100 WBC (Bld) [Ratio] 0 % 0-5 [facility] Platelet countOrdered By: Ben Santana on 09-25-2024 Platelets (Bld) [#/Vol] 225 10*3/uL 150-450 [facility] Potassium measurementOrdered By: Bebeto Santana on 09-25-2024 Potassium [Moles/Vol] 3.3 mmol/L Low 3.5-5.1 [facility] RBC Auto (Bld) [#/Vol]Ordere d By: Bebeto Santana on 09-25-2024 RBC (Bld) [#/Vol] 3.61 10*6/uL Low 4.2-5.4 [facility] Serum anion gap measurementO rdered By: Bebeto Santana on 09-25-2024 Anion gap [Moles/Vol] 9 mmol/L 5-15 [facility] Serum globulin measurementOr dered By: Bebeto Santana on 09-25-2024 Globulin (S) [Mass/Vol] 4.3 g/dL High 2.2-4.2 [facility] Serum or plasma alanine cornejo otransferase (ALT) measurementOrdered By: Bebeto Santana on 09-25-2024 ALT [Catalytic activity/Vol] 18 U/L 13-56 [facility] Serum or plasma albumin sabino urement (mass/volume)Ordered By: Bebeto Santana 09-25-2024 Albumin [Mass/Vol] 3.2 g/dL 3.2-5.[address] [facility] Serum or plasma alkaline shaista sphatase measurementOrdered By: Bebeto Santana 09-25-2024 ALP [Catalytic activity/Vol] 89 U/L 45-117 [facility] Serum or plasma calcium sabino urement (mass/volume)Ordered By: Bebeto Santana 09-25-2024 Calcium [Mass/Vol] 9.0 mg/dL 8.5-10.[address] [facility] Serum or plasma cholesterol measurement (mass/volume)Ordered By: Bebeto Santana 09-25-2024 Cholesterol [Mass/Vol] 158 mg/dL <200 [facility] Comment on above: <200 mg/dL Desirable 200-240 mg/dL Borderline >240 mg/dL High Risk Serum or plasma creatinine m easurement (mass/volume)Ordered By: Bebeto Santana on 09-25-2024 Creatinine [Mass/Vol] 0.87 mg/dL 0.55-1.02 [facility] Comment on above: The validity of the calculated GFR & GFRAA in patients over 70 years has not been determined. Clinical correlation is essential. Serum or plasma thyroid stim ulating hormone (TSH) measurement (units/volume)Ordered By: Bebeto Santana on 09-25-2024 TSH Qn 5.250 uIU/mL High 0.358-3.740 [facility] Serum or plasma urea nitroge n measurement (mass/volume)Ordered By: Bebeto Santana on 09-25-2024 Urea nitrogen [Mass/Vol] 15 mg/dL 7-18 [facility] Sodium levelOrdered By: Bebeto Santana on 09-25-2024 Sodium [Moles/Vol] 137 mmol/L 136-[address] [facility] Thyroid Stim Hormone (TSH)on 09-25-2024 TSH 5.250 uIU/mL High 0.358-3.740 [facility] Comment on above: Performed By: #### L 500.4050, L100.0100, L502.0250, L501.9520, L501.9985, L506.1000, L500.4100 #### [facility] [place], [address] Total proteinOrdered By: Bebeto Santana on 09-25-2024 Protein [Mass/Vol] 7.5 g/dL 6.4-8.[address] [facility] Triglycerides measurementOrd ered By: Bebeto Santana on 09-25-2024 Triglyceride [Mass/Vol] 114 mg/dL <199 [facility] Comment on above: The drugs N-Acetylcy steine and Metamizole may falsely depress this assay.Serum Triglycerides Reference Interval Normal <150 mg/dL Borderline high 150 - 199 mg/dL High 200 - 499 mg/dL Very High > or = 500 mg/dL Very low density lipoprotein (VLDL) cholesterol measurementOrdered By: Bebeto Santana on 09-25-2024 Very low density lipoprotein (VLDL) cholesterol measurement 23 mg/dL 5-40 [facility] Vitamin D,25 Hydroxyon 09-25 Vitamin D 25-OH 26.7 ng/mL Normal [facility] Comment on above: Result Comment: Jojo min D 25(OH) Status Range Deficiency <20 ng/mL (50nmol/L) Insufficiency 20 - 30 ng/mL (50 - 75 nmol/L) Sufficiency 30 - 100 ng/mL (75 - 250 nmol/L) Toxicity >100 ng/mL (>250 nmol/L) Performed By: #### L 500.4050, L100.0100, L502.0250, L501.9520, L501.9985, L506.1000, L500.4100 #### [facility] [address] [place], [address] White blood cell (WBC) count Ordered By: Bebeto Santana on 09-25-2024 WBC (Bld) [#/Vol] 8.6 10*3/uL 4.4-11.[address] [facility] CBC W/Diff, Automatedon 10-3 -2023 Absolute Lymph 2.31 X10 3/uL Normal 0.83-4.51 [facility] Comment on above: Performed By: #### L 500.4050, L100.0100, L502.0250, L501.9520, L501.9985, L506.1000, L500.4100 #### [facility] [address] [place], [address] Absolute Neut 2.0 X10 3/uL Normal 2.0-7.7 [facility] Comment on above: Performed By: #### L 500.4050, L100.0100, L502.0250, L501.9520, L501.9985, L506.1000, L500.4100 #### [facility] [address] [place], [address] Basophils/100 WBC (Bld) 0.8 % Normal 0-1 [facility] Comment on above: Performed By: #### L 500.4050, L100.0100, L502.0250, L501.9520, L501.9985, L506.1000, L500.4100 #### [facility] [address] [place], [address] Eosinophils/100 WBC (Bld) 3.4 % Normal 0-5 [facility] Comment on above: Performed By: #### L 500.4050, L100.0100, L502.0250, L501.9520, L501.9985, L506.1000, L500.4100 #### [facility] [address] [place], [address] Erythrocyte distribution width (RBC) [Ratio] 14.0 % Normal 11.6-14.6 [facility] Comment on above: Performed By: #### L 500.4050, L100.0100, L502.0250, L501.9520, L501.9985, L506.1000, L500.4100 #### [facility] [address] [place], [address] Hematocrit (Bld) [Volume fraction] 31.8 % Low 37-47 [facility] Comment on above: Performed By: #### L 500.4050, L100.0100, L502.0250, L501.9520, L501.9985, L506.1000, L500.4100 #### [facility] [address] [place], [address] Hemoglobin (Bld) [Mass/Vol] 10.9 g/dL Low 12.0-15.0 [facility] Comment on above: Performed By: #### L 500.4050, L100.0100, L502.0250, L501.9520, L501.9985, L506.1000, L500.4100 #### [facility] [address] [place], [address] IG% 0.200 Normal 0.0-0.9 [facility] Comment on above: Result Comment: IG% - Immature Granulocytes (promyelocytes, myelocytes and metamyelocytes) > 1% indicates that a LEFT SHIFT is Present. Performed By: #### L 500.4050, L100.0100, L502.0250, L501.9520, L501.9985, L506.1000, L500.4100 #### [facility] [address] [place], [address] Lymphocytes/100 WBC (Bld) 45.8 % High 19-41 [facility] Comment on above: Performed By: #### L 500.4050, L100.0100, L502.0250, L501.9520, L501.9985, L506.1000, L500.4100 #### [facility] [address] [place], [address] MCH (RBC) [Entitic mass] 30.8 pg Normal 27.0-32.0 [facility] Comment on above: Performed By: #### L 500.4050, L100.0100, L502.0250, L501.9520, L501.9985, L506.1000, L500.4100 #### [facility] [address] [place], [address] MCHC (RBC) [Mass/Vol] 34.3 g/dL Normal 32-36 [facility] Comment on above: Performed By: #### L 500.4050, L100.0100, L502.0250, L501.9520, L501.9985, L506.1000, L500.4100 #### [facility] [address] [place], [address] MCV (RBC) [Entitic vol] 89.8 fL Normal 81-99 [facility] Comment on above: Performed By: #### L 500.4050, L100.0100, L502.0250, L501.9520, L501.9985, L506.1000, L500.4100 #### [facility] [address] [place], [address] Monocytes/100 WBC (Bld) 9.5 % Normal 0-10 [facility] Comment on above: Performed By: #### L 500.4050, L100.0100, L502.0250, L501.9520, L501.9985, L506.1000, L500.4100 #### [facility] [address] [place], [address] Neutrophils/100 WBC (Bld) 40.3 % Low 47-70 [facility] Comment on above: Performed By: #### L 500.4050, L100.0100, L502.0250, L501.9520, L501.9985, L506.1000, L500.4100 #### [facility] [address] [place], [address] Nucleated RBC (Bld) [#/Vol] 0 10*3/uL Normal 0-5 [facility] Comment on above: Performed By: #### L 500.4050, L100.0100, L502.0250, L501.9520, L501.9985, L506.1000, L500.4100 #### [facility] [address] [place], [address] Platelet mean volume (Bld) [Entitic vol] 9.8 fL Normal 6.2-12.0 [facility] Comment on above: Performed By: #### L 500.4050, L100.0100, L502.0250, L501.9520, L501.9985, L506.1000, L500.4100 #### [facility] [address] [place], [address] Platelets (Bld) [#/Vol] 190 10*3/uL Normal 150-450 [facility] Comment on above: Performed By: #### L 500.4050, L100.0100, L502.0250, L501.9520, L501.9985, L506.1000, L500.4100 #### [facility] [address] [place], [address] RBC (Bld) [#/Vol] 3.54 10*6/uL Low 4.2-5.4 [facility] Comment on above: Performed By: #### L 500.4050, L100.0100, L502.0250, L501.9520, L501.9985, L506.1000, L500.4100 #### [facility] [address] [place], [address] RDW SD 46.0 fl High 35.1-43.9 [facility] Comment on above: Performed By: #### L 500.4050, L100.0100, L502.0250, L501.9520, L501.9985, L506.1000, L500.4100 #### [facility] [address] [place], [address] WBC (Bld) [#/Vol] 5.0 10*3/uL Normal 4.4-11.[address] [facility] Comment on above: Performed By: #### L 500.4050, L100.0100, L502.0250, L501.9520, L501.9985, L506.1000, L500.4100 #### [facility] [address] [place], [address] Comprehensive [facility] 06-21-2024 Albumin [Mass/Vol] 3.1 g/dL Low 3.2-5.[address] [facility] Comment on above: Performed By: #### L 500.4050, L100.0100, L502.0250, L501.9520, L501.9985, L506.1000, L500.4100 #### [facility] [address] [place], [address] Albumin/Globulin [Mass ratio] 0.7 {ratio} Low 0.9-2.4 [facility] Comment on above: Performed By: #### L 500.4050, L100.0100, L502.0250, L501.9520, L501.9985, L506.1000, L500.4100 #### [facility] [address] [place], [address] ALK P 76 U/L Normal 45-117 [facility] Comment on above: Performed By: #### L 500.4050, L100.0100, L502.0250, L501.9520, L501.9985, L506.1000, L500.4100 #### [facility] [address] [place], [address] ALT [Catalytic activity/Vol] 15 U/L Normal 13-56 [facility] Comment on above: Performed By: #### L 500.4050, L100.0100, L502.0250, L501.9520, L501.9985, L506.1000, L500.4100 #### [facility] [address] [place], [address] AST [Catalytic activity/Vol] 24 U/L Normal 15-37 [facility] Comment on above: Performed By: #### L 500.4050, L100.0100, L502.0250, L501.9520, L501.9985, L506.1000, L500.4100 #### [facility] [address] [place], [address] Bilirubin [Mass/Vol] 1.40 mg/dL High 0.20-1.00 [facility] Comment on above: Result Comment: For patients on eltrombopag therapy, use of Dimension [place] TBIL is not recommended. Performed By: #### L 500.4050, L100.0100, L502.0250, L501.9520, L501.9985, L506.1000, L500.4100 #### [facility] [address] [place], [address] BUN/CRE 12.6 RATIO Normal 10-20 [facility] Comment on above: Performed By: #### L 500.4050, L100.0100, L502.0250, L501.9520, L501.9985, L506.1000, L500.4100 #### [facility] [address] [place], [address] CA,Total 9.0 mg/dL Normal 8.5-10.1 [facility] Comment on above: Performed By: #### L 500.4050, L100.0100, L502.0250, L501.9520, L501.9985, L506.1000, L500.4100 #### [facility] [address] [place], [address] Chloride [Moles/Vol] 110 mmol/L High 98-107 [facility] Comment on above: Performed By: #### L 500.4050, L100.0100, L502.0250, L501.9520, L501.9985, L506.1000, L500.4100 #### [facility] [address] [place], [address] CO2 [Moles/Vol] 25.0 mmol/L Normal 21.0-32.0 [facility] Comment on above: Performed By: #### L 500.4050, L100.0100, L502.0250, L501.9520, L501.9985, L506.1000, L500.4100 #### [facility] [address] [place], [address] Creatinine [Mass/Vol] 0.64 mg/dL Normal 0.55-1.02 [facility] Comment on above: Result Comment: The validity of the calculated GFR GFRAA in patients over 70 years has not been determined. Clinical correlation is essential. Performed By: #### L 500.4050, L100.0100, L502.0250, L501.9520, L501.9985, L506.1000, L500.4100 #### [facility] [address] [place], [address] EST GFR - AA 117 mL/min Normal >60 [facility] Comment on above: Result Comment: Afri can [place] GFR Calc Performed By: #### L 500.4050, L100.0100, L502.0250, L501.9520, L501.9985, L506.1000, L500.4100 #### [facility] [address] [place], [address] GAP 5 Normal 5-15 [facility] Comment on above: Performed By: #### L 500.4050, L100.0100, L502.0250, L501.9520, L501.9985, L506.1000, L500.4100 #### [facility] [address] [place], [address] GFR/1.73 sq M.predicted among non-blacks MDRD (S/P/Bld) [Vol rate/Area] 96 mL/min/{1.73_m2} Normal >60 [facility] Comment on above: Result Comment: Non- GFR Calc Performed By: #### L 500.4050, L100.0100, L502.0250, L501.9520, L501.9985, L506.1000, L500.4100 #### [facility] [address] [place], [address] Globulin (S) [Mass/Vol] 4.2 g/dL Normal 2.2-4.2 [facility] Comment on above: Performed By: #### L 500.4050, L100.0100, L502.0250, L501.9520, L501.9985, L506.1000, L500.4100 #### [facility] [address] [place], [address] Glucose [Mass/Vol] 124 mg/dL High 74-[address] [facility] Comment on above: Result Comment: Fast ing Glucose result from 100 to 125 mg/dL suggests IMPAIRED HOMEOSTASIS per A.D.A. criteria. Performed By: #### L 500.4050, L100.0100, L502.0250, L501.9520, L501.9985, L506.1000, L500.4100 #### [facility] [address] [place], [address] Potassium [Moles/Vol] 4.1 mmol/L Normal 3.5-5.1 [facility] Comment on above: Performed By: #### L 500.4050, L100.0100, L502.0250, L501.9520, L501.9985, L506.1000, L500.4100 #### [facility] [address] [place], [address] Sodium [Moles/Vol] 139 mmol/L Normal 136-[address] [facility] Comment on above: Performed By: #### L 500.4050, L100.0100, L502.0250, L501.9520, L501.9985, L506.1000, L500.4100 #### [facility] [address] [place], [address] T PROT 7.3 g/dL Normal 6.4-8.2 [facility] Comment on above: Performed By: #### L 500.4050, L100.0100, L502.0250, L501.9520, L501.9985, L506.1000, L500.4100 #### [facility] [address] [place], [address] Urea nitrogen [Mass/Vol] 8 mg/dL Normal 7-18 [facility] Comment on above: Performed By: #### L 500.4050, L100.0100, L502.0250, L501.9520, L501.9985, L506.1000, L500.4100 #### [facility] [address] [place], [address] Hemoglobin A1con 06-21-2024 HbA1c (Bld) [Mass fraction] 6.9 % High 3.8-5.6 [facility] Comment on above: Result Comment: Norm al < 5.7 % Prediabetic 5.7 - 6.4 % Diabetic >or= 6.5 % Please note range changes. Performed By: #### L 500.4050, L100.0100, L502.0250, L501.9520, L501.9985, L506.1000, L500.4100 #### [facility] [address] [place], [address] Lipid Profileon 06-21-2024 Cholesterol [Mass/Vol] 156 mg/dL Normal 200 [facility] Comment on above: Result Comment: <200 mg/dL Desirable 200-240 mg/dL Borderline >240 mg/dL High Risk Performed By: #### L 500.4050, L100.0100, L502.0250, L501.9520, L501.9985, L506.1000, L500.4100 #### [facility] [address] [place], [address] Cholesterol in HDL [Mass/Vol] 50 mg/dL Normal [facility] Comment on above: Result Comment: The drugs N-Acetylcysteine and Metamizole may falsely depress this assay. Reference Range HDL <40 mg/dL Low HDL Cholesterol HDL >or= 60 mg/dL High HDL Cholesterol Performed By: #### L 500.4050, L100.0100, L502.0250, L501.9520, L501.9985, L506.1000, L500.4100 #### [facility] [address] [place], [address] Cholesterol in LDL [Mass/Vol] 88 mg/dL Normal 0-130 [facility] Comment on above: Performed By: #### L 500.4050, L100.0100, L502.0250, L501.9520, L501.9985, L506.1000, L500.4100 #### [facility] [address] [place], [address] Cholesterol in VLDL [Mass/Vol] 18 mg/dL Normal 5-40 [facility] Comment on above: Performed By: #### L 500.4050, L100.0100, L502.0250, L501.9520, L501.9985, L506.1000, L500.4100 #### [facility] [address] [place], [address] Triglyceride [Mass/Vol] 90 mg/dL Normal [facility] Comment on above: Result Comment: The drugs N-Acetylcysteine and Metamizole may falsely depress this assay. Serum Triglycerides Reference Interval Normal <150 mg/dL Borderline high 150 - 199 mg/dL High 200 - 499 mg/dL Very High > or = 500 mg/dL Performed By: #### L 500.4050, L100.0100, L502.0250, L501.9520, L501.9985, L506.1000, L500.4100 #### [facility] [address] [place], [address] Thyroid Stim Hormone (TSH)on 06-21-2024 TSH 1.910 uIU/mL Normal 0.358-3.740 [facility] Comment on above: Performed By: #### L 500.4050, L100.0100, L502.0250, L501.9520, L501.9985, L506.1000, L500.4100 #### [facility] [address] [facility] [place], [address] Vitamin D,25 Hydroxyon 06-21 Vitamin D 25-OH 16.8 ng/mL Normal [facility] Comment on above: Result Comment: Jojo min D 25(OH) Status Range Deficiency <20 ng/mL (50nmol/L) Insufficiency 20 - 30 ng/mL (50 - 75 nmol/L) Sufficiency 30 - 100 ng/mL (75 - 250 nmol/L) Toxicity >100 ng/mL (>250 nmol/L) Performed By: #### L 500.4050, L100.0100, L502.0250, L501.9520, L501.9985, L506.1000, L500.4100 #### [facility] [address] [place], [address] CBC W/Diff, Automatedon 07-3 0-2023 Absolute Lymph 2.55 X10 3/uL Normal 0.83-4.51 [facility] Comment on above: Performed By: #### L 500.4050, L100.0100, L502.0250, L501.9520, L501.9985, L506.1000, L500.4100 #### [facility] [address] [place], [address] Absolute Neut 5.1 X10 3/uL Normal 2.0-7.7 [facility] Comment on above: Performed By: #### L 500.4050, L100.0100, L502.0250, L501.9520, L501.9985, L506.1000, L500.4100 #### [facility] [address] [place], [address] Basophils/100 WBC (Bld) 0.5 % Normal 0-1 [facility] Comment on above: Performed By: #### L 500.4050, L100.0100, L502.0250, L501.9520, L501.9985, L506.1000, L500.4100 #### [facility] [address] [place], [address] Eosinophils/100 WBC (Bld) 1.5 % Normal 0-5 [facility] Comment on above: Performed By: #### L 500.4050, L100.0100, L502.0250, L501.9520, L501.9985, L506.1000, L500.4100 #### [facility] [address] [place], [address] Erythrocyte distribution width (RBC) [Ratio] 13.1 % Normal 11.6-14.6 [facility] Comment on above: Performed By: #### L 500.4050, L100.0100, L502.0250, L501.9520, L501.9985, L506.1000, L500.4100 #### [facility] [address] [place], [address] Hematocrit (Bld) [Volume fraction] 35.2 % Low 37-47 [facility] Comment on above: Performed By: #### L 500.4050, L100.0100, L502.0250, L501.9520, L501.9985, L506.1000, L500.4100 #### [facility] [address] [place], [address] Hemoglobin (Bld) [Mass/Vol] 12.2 g/dL Normal 12.0-15.0 [facility] Comment on above: Performed By: #### L 500.4050, L100.0100, L502.0250, L501.9520, L501.9985, L506.1000, L500.4100 #### [facility] [address] [place], [address] IG% 0.400 Normal 0.0-0.9 [facility] Comment on above: Result Comment: IG% - Immature Granulocytes (promyelocytes, myelocytes and metamyelocytes) > 1% indicates that a LEFT SHIFT is Present. Performed By: #### L 500.4050, L100.0100, L502.0250, L501.9520, L501.9985, L506.1000, L500.4100 #### [facility] [address] [place], [address] Lymphocytes/100 WBC (Bld) 30.2 % Normal 19-41 [facility] Comment on above: Performed By: #### L 500.4050, L100.0100, L502.0250, L501.9520, L501.9985, L506.1000, L500.4100 #### [facility] [address] [place], [address] MCH (RBC) [Entitic mass] 29.7 pg Normal 27.0-32.0 [facility] Comment on above: Performed By: #### L 500.4050, L100.0100, L502.0250, L501.9520, L501.9985, L506.1000, L500.4100 #### [facility] [address] [place], [address] MCHC (RBC) [Mass/Vol] 34.7 g/dL Normal 32-36 [facility] Comment on above: Performed By: #### L 500.4050, L100.0100, L502.0250, L501.9520, L501.9985, L506.1000, L500.4100 #### [facility] [address] [place], [address] MCV (RBC) [Entitic vol] 85.6 fL Normal 81-99 [facility] Comment on above: Performed By: #### L 500.4050, L100.0100, L502.0250, L501.9520, L501.9985, L506.1000, L500.4100 #### [facility] [address] [place], [address] Monocytes/100 WBC (Bld) 7.1 % Normal 0-10 [facility] Comment on above: Performed By: #### L 500.4050, L100.0100, L502.0250, L501.9520, L501.9985, L506.1000, L500.4100 #### [facility] [address] [place], [address] Neutrophils/100 WBC (Bld) 60.3 % Normal 47-70 [facility] Comment on above: Performed By: #### L 500.4050, L100.0100, L502.0250, L501.9520, L501.9985, L506.1000, L500.4100 #### [facility] [address] [place], [address] Nucleated RBC (Bld) [#/Vol] 0 10*3/uL Normal 0-5 [facility] Comment on above: Performed By: #### L 500.4050, L100.0100, L502.0250, L501.9520, L501.9985, L506.1000, L500.4100 #### [facility] [address] [place], [address] Platelet mean volume (Bld) [Entitic vol] 10.0 fL Normal 6.2-12.0 [facility] Comment on above: Performed By: #### L 500.4050, L100.0100, L502.0250, L501.9520, L501.9985, L506.1000, L500.4100 #### [facility] [address] [place], [address] Platelets (Bld) [#/Vol] 195 10*3/uL Normal 150-450 [facility] Comment on above: Performed By: #### L 500.4050, L100.0100, L502.0250, L501.9520, L501.9985, L506.1000, L500.4100 #### [facility] [address] [place], [address] RBC (Bld) [#/Vol] 4.11 10*6/uL Low 4.2-5.4 [facility] Comment on above: Performed By: #### L 500.4050, L100.0100, L502.0250, L501.9520, L501.9985, L506.1000, L500.4100 #### [facility] [address] [place], [address] RDW SD 40.5 fl Normal 35.1-43.9 [facility] Comment on above: Performed By: #### L 500.4050, L100.0100, L502.0250, L501.9520, L501.9985, L506.1000, L500.4100 #### [facility] [address] [place], [address] WBC (Bld) [#/Vol] 8.4 10*3/uL Normal 4.4-11.[address] [facility] Comment on above: Performed By: #### L 500.4050, L100.0100, L502.0250, L501.9520, L501.9985, L506.1000, L500.4100 #### [facility] [address] [place], [address] Chest PA and Lateralon 03-21 Chest PA and Lateral [facility] [address] [place] [address] Chest PA and Lateral MR#: [id number] Acct: [id number] Name: HEATHER LANDRY Rep #: [id number] : 1945 F 78 From: Magen stanford MD PCP: Dr. Bebeto Santana MD Status: [facility] Study: Chest PA and Lateral Date of Exam: 03/21/24 Exam# [id number] Ordering Dr: Bebeto Santana MD -[id number] STUDY: X-RAY CHEST REASON FOR EXAM: Female, 78 years old. SOB TECHNIQUE: Frontal and lateral views of the chest. COMPARISON: 01/12/2018. FINDINGS: The lungs are clear and expanded. There is no demonstrated pleural abnormality. Sternal cerclage wires and vascular clips are present from a prior sternotomy and coronary artery bypass graft procedure (CABG). Normal mediastinum and tl. Normal visualized pulmonary arteries. There is atherosclerotic calcification of the aortic arch with tortuosity. Normal visualized thoracic spine. Normal visualized ribs, clavicles, and shoulders. There is no demonstrated abnormality of the visualized soft tissue structures of the upper abdomen. RAD/Chest PA and Lateral IMPRESSION: No definite acute or significant abnormality seen. Electronically Signed: Magen Orlando MD at 16:55 EDT , CC: Dr. Bebeto Santana MD Chef Kitchen Manager: Signed Normal [facility] Comprehensive Metabolic Prof ilon 03-21-2024 Albumin [Mass/Vol] 3.2 g/dL Normal 3.2-5.[address] [facility] Comment on above: Performed By: #### L 500.4050, L100.0100, L502.0250, L501.9520, L501.9985, L506.1000, L500.4100 #### [facility] [address] [place], [address] Albumin/Globulin [Mass ratio] 0.7 {ratio} Low 0.9-2.4 [facility] Comment on above: Performed By: #### L 500.4050, L100.0100, L502.0250, L501.9520, L501.9985, L506.1000, L500.4100 #### [facility] [address] [place], [address] ALK P 126 U/L High 45-117 [facility] Comment on above: Performed By: #### L 500.4050, L100.0100, L502.0250, L501.9520, L501.9985, L506.1000, L500.4100 #### [facility] [address] [place], [address] ALT [Catalytic activity/Vol] 16 U/L Normal 13-56 [facility] Comment on above: Performed By: #### L 500.4050, L100.0100, L502.0250, L501.9520, L501.9985, L506.1000, L500.4100 #### [facility] [address] [place], [address] AST [Catalytic activity/Vol] 31 U/L Normal 15-37 [facility] Comment on above: Performed By: #### L 500.4050, L100.0100, L502.0250, L501.9520, L501.9985, L506.1000, L500.4100 #### [facility] [address] [place], [address] Bilirubin [Mass/Vol] 1.20 mg/dL High 0.20-1.00 [facility] Comment on above: Result Comment: For patients on eltrombopag therapy, use of Dimension [place] TBIL is not recommended. Performed By: #### L 500.4050, L100.0100, L502.0250, L501.9520, L501.9985, L506.1000, L500.4100 #### [facility] [address] [place], [address] BUN/CRE 13.3 RATIO Normal 10-20 [facility] Comment on above: Performed By: #### L 500.4050, L100.0100, L502.0250, L501.9520, L501.9985, L506.1000, L500.4100 #### [facility] [address] [place], [address] CA,Total 9.5 mg/dL Normal 8.5-10.1 [facility] Comment on above: Performed By: #### L 500.4050, L100.0100, L502.0250, L501.9520, L501.9985, L506.1000, L500.4100 #### [facility] [address] [place], [address] Chloride [Moles/Vol] 100 mmol/L Normal 98-107 [facility] Comment on above: Performed By: #### L 500.4050, L100.0100, L502.0250, L501.9520, L501.9985, L506.1000, L500.4100 #### [facility] [address] [place], [address] CO2 [Moles/Vol] 26.0 mmol/L Normal 21.0-32.0 [facility] Comment on above: Performed By: #### L 500.4050, L100.0100, L502.0250, L501.9520, L501.9985, L506.1000, L500.4100 #### [facility] [address] [place], [address] Creatinine [Mass/Vol] 0.75 mg/dL Normal 0.55-1.02 [facility] Comment on above: Result Comment: The validity of the calculated GFR GFRAA in patients over 70 years has not been determined. Clinical correlation is essential. Performed By: #### L 500.4050, L100.0100, L502.0250, L501.9520, L501.9985, L506.1000, L500.4100 #### [facility] [address] [place], [address] EST GFR - AA 96 mL/min Normal >60 [facility] Comment on above: Result Comment: Afri can [place] GFR Calc Performed By: #### L 500.4050, L100.0100, L502.0250, L501.9520, L501.9985, L506.1000, L500.4100 #### [facility] [address] [place], [address] GAP 9 Normal 5-15 [facility] Comment on above: Performed By: #### L 500.4050, L100.0100, L502.0250, L501.9520, L501.9985, L506.1000, L500.4100 #### [facility] [address] [place], [address] GFR/1.73 sq M.predicted among non-blacks MDRD (S/P/Bld) [Vol rate/Area] 80 mL/min/{1.73_m2} Normal >60 [facility] Comment on above: Result Comment: Non- GFR Calc Performed By: #### L 500.4050, L100.0100, L502.0250, L501.9520, L501.9985, L506.1000, L500.4100 #### [facility] [address] [place], [address] Globulin (S) [Mass/Vol] 4.5 g/dL High 2.2-4.2 [facility] Comment on above: Performed By: #### L 500.4050, L100.0100, L502.0250, L501.9520, L501.9985, L506.1000, L500.4100 #### [facility] [address] [place], [address] Glucose [Mass/Vol] 313 mg/dL High 74-[address] [facility] Comment on above: Result Comment: Gluc ose result greater than or equal to 200 mg/dL suggests DIABETES MELLITUS per A.D.A. criteria. Performed By: #### L 500.4050, L100.0100, L502.0250, L501.9520, L501.9985, L506.1000, L500.4100 #### [facility] [address] [place], [address] Potassium [Moles/Vol] 3.7 mmol/L Normal 3.5-5.1 [facility] Comment on above: Performed By: #### L 500.4050, L100.0100, L502.0250, L501.9520, L501.9985, L506.1000, L500.4100 #### [facility] [address] [place], [address] Sodium [Moles/Vol] 135 mmol/L Low 136-[address] [facility] Comment on above: Performed By: #### L 500.4050, L100.0100, L502.0250, L501.9520, L501.9985, L506.1000, L500.4100 #### [facility] [address] [place], [address] T PROT 7.7 g/dL Normal 6.4-8.2 [facility] Comment on above: Performed By: #### L 500.4050, L100.0100, L502.0250, L501.9520, L501.9985, L506.1000, L500.4100 #### [facility] [address] [place], [address] Urea nitrogen [Mass/Vol] 10 mg/dL Normal 7-18 [facility] Comment on above: Performed By: #### L 500.4050, L100.0100, L502.0250, L501.9520, L501.9985, L506.1000, L500.4100 #### [facility] [address] [place], [address] Hemoglobin A1con 03-21-2024 HbA1c (Bld) [Mass fraction] 7.6 % High 3.8-5.6 [facility] Comment on above: Result Comment: Norm al < 5.7 % Prediabetic 5.7 - 6.4 % Diabetic >or= 6.5 % Please note range changes. Performed By: #### L 500.4050, L100.0100, L502.0250, L501.9520, L501.9985, L506.1000, L500.4100 #### [facility] [address] [place], [address] Lipid Profileon 03-21-2024 Cholesterol [Mass/Vol] 176 mg/dL Normal 200 [facility] Comment on above: Result Comment: <200 mg/dL Desirable 200-240 mg/dL Borderline >240 mg/dL High Risk Performed By: #### L 500.4050, L100.0100, L502.0250, L501.9520, L501.9985, L506.1000, L500.4100 #### [facility] [address] [place], [address] Cholesterol in HDL [Mass/Vol] 56 mg/dL Normal [facility] Comment on above: Result Comment: The drugs N-Acetylcysteine and Metamizole may falsely depress this assay. Reference Range HDL <40 mg/dL Low HDL Cholesterol HDL >or= 60 mg/dL High HDL Cholesterol Performed By: #### L 500.4050, L100.0100, L502.0250, L501.9520, L501.9985, L506.1000, L500.4100 #### [facility] [address] [place], [address] Cholesterol in LDL [Mass/Vol] 104 mg/dL Normal 0-130 [facility] Comment on above: Performed By: #### L 500.4050, L100.0100, L502.0250, L501.9520, L501.9985, L506.1000, L500.4100 #### [facility] [address] [place], [address] Cholesterol in VLDL [Mass/Vol] 16 mg/dL Normal 5-40 [facility] Comment on above: Performed By: #### L 500.4050, L100.0100, L502.0250, L501.9520, L501.9985, L506.1000, L500.4100 #### [facility] [address] [place], [address] Triglyceride [Mass/Vol] 80 mg/dL Normal [facility] Comment on above: Result Comment: The drugs N-Acetylcysteine and Metamizole may falsely depress this assay. Serum Triglycerides Reference Interval Normal <150 mg/dL Borderline high 150 - 199 mg/dL High 200 - 499 mg/dL Very High > or = 500 mg/dL Performed By: #### L 500.4050, L100.0100, L502.0250, L501.9520, L501.9985, L506.1000, L500.4100 #### [facility] [address] [place], [address] Thyroid Stim Hormone (TSH)on 03-21-2024 TSH 4.82 uIU/mL High 0.358-3.74 [facility] Comment on above: Performed By: #### L 500.4050, L100.0100, L502.0250, L501.9520, L501.9985, L506.1000, L500.4100 #### [facility] [address] [place], [address] Vitamin D,25 Hydroxyon 03-21 Vitamin D 25-OH 33.4 ng/mL Normal [facility] Comment on above: Result Comment: Jojo min D 25(OH) Status Range Deficiency <20 ng/mL (50nmol/L) Insufficiency 20 - 30 ng/mL (50 - 75 nmol/L) Sufficiency 30 - 100 ng/mL (75 - 250 nmol/L) Toxicity >100 ng/mL (>250 nmol/L) Performed By: #### L 500.4050, L100.0100, L502.0250, L501.9520, L501.9985, L506.1000, L500.4100 #### [facility] [address] [place], [address] Absolute lymphocyte countOrd ered By: Bebeto Santana on 12-20-2023 Lymphocytes Auto (Unsp spec) [#/Vol] 2.35 10*3/uL 0.83-4.51 [facility] Automated lymphocyte count a s percentage of total leukocytesOrdered By: Bebeto Santana on 12-20-2023 Lymphocytes/100 WBC Auto (Unsp spec) 40.9 % 19-41 [facility] Basophil percentageOrdered B y: Bebeto Santana on 12-20-2023 Basophils/100 WBC (Bld) 0.7 % 0-1 [facility] Bilirubin [Mass/Vol] 1.10 mg/dL 0.20-1.00 [facility] Comment on above: For patients on eltr ombopag therapy, use of Dimension [place] TBIL is not recommended. Chloride [Moles/Vol] 107 mmol/L 98-107 [facility] Cholesterol [Mass/Vol] 144 mg/dL <200 [facility] Comment on above: <200 mg/dL Desirable 200-240 mg/dL Borderline >240 mg/dL High Risk Eosinophils/100 WBC (Bld) 2.6 % 0-5 [facility] Glucose [Mass/Vol] 284 mg/dL 74-[address] [facility] Comment on above: Glucose result great er than or equal to 200 mg/dLsuggests DIABETES MELLITUS per A.D.A. criteria. Hemoglobin (Bld) [Mass/Vol] 10.6 g/dL 12.0-15.0 [facility] Monocytes/100 WBC (Bld) 9.9 % 0-10 [facility] Neutrophils (Bld) [#/Vol] 2.6 10*3/uL 2.0-7.7 [facility] Neutrophils/100 WBC (Bld) 45.7 % 47-70 [facility] Potassium [Moles/Vol] 3.6 mmol/L 3.5-5.1 [facility] Protein [Mass/Vol] 7.3 g/dL 6.4-8.[address] [facility] Sodium [Moles/Vol] 137 mmol/L 136-[address] [facility] Triglyceride [Mass/Vol] 106 mg/dL <199 [facility] Comment on above: The drugs N-Acetylcy steine and Metamizole may falsely depress this assay.Serum Triglycerides Reference Interval Normal <150 mg/dL Borderline high 150 - 199 mg/dL High 200 - 499 mg/dL Very High > or = 500 mg/dL WBC (Bld) [#/Vol] 5.7 10*3/uL 4.4-11.[address] [facility] Determination of erythrocyte mean corpuscular volume (MCV)Ordered By: Bebeto Desmond on 12-20-2023 MCV (RBC) [Entitic vol] 87.8 fL 81-99 [facility] Erythrocyte distribution wid th ratioOrdered By: [employer] on 12-20-2023 Erythrocyte distribution width (RBC) [Ratio] 13.1 % 11.6-14.6 [facility] Erythrocyte distribution wid th standard deviationOrdered By: [employer] on 12-20-2023 Erythrocyte distribution width (RBC) [Entitic vol] 41.3 fL 35.1-43.[address] [facility] Hematocrit Auto (Bld) [Volum e fraction]Ordered By: [employer] on 12-20-2023 Hematocrit (Bld) [Volume fraction] 30.1 % 37-47 [facility] Immature granulocytes/100 WB C Auto (Bld)Ordered By: [employer] 12-20-2023 Immature granulocytes/100 WBC (Bld) 0.200 % 0.0-0.9 [facility] Comment on above: IG% - Immature Granu locytes (promyelocytes, myelocytes and metamyelocytes) > 1% indicates that a LEFT SHIFT is Present. Laboratory - Chemistry and C hemistry - challengeOrdered By: [employer] [facility] [employer] on 12-20-2023 Albumin/Globulin [Mass ratio] 0.7 {ratio} 0.9-2.4 [facility] ALP [Catalytic activity/Vol] 83 U/L 45-117 [facility] ALT [Catalytic activity/Vol] 17 U/L 13-56 [facility] Cholesterol in HDL [Mass/Vol] 45 mg/dL >40 [facility] Comment on above: The drugs N-Acetylcy steine and Metamizole may falsely depress this assay. Reference Range HDL <40 mg/dL Low HDL Cholesterol HDL >or= 60 mg/dL High HDL Cholesterol Cholesterol in LDL [Mass/Vol] 78 mg/dL 0-130 [facility] CO2 [Moles/Vol] 25.0 mmol/L 21.0-32.0 [facility] Globulin (S) [Mass/Vol] 4.3 g/dL 2.2-4.2 [facility] Urea nitrogen/Creatinine [Mass ratio] 9.3 mg/mg 10-20 [facility] - Hematology and Cell countsOrdered By: Bebeto Santana on 12-20-2023 MCH (RBC) [Entitic mass] 30.9 pg 27.0-32.0 [facility] MCHC (RBC) [Mass/Vol] 35.2 g/dL 32-36 [facility] Nucleated RBC/100 WBC (Bld) [Ratio] 0 % 0-5 [facility] Platelet mean volume (Bld) [Entitic vol] 9.9 fL 6.2-12.0 [facility] Platelets (Bld) [#/Vol] 183 10*3/uL 150-450 [facility] No Panel InformationOrdered By: Bebeto Santana on 12-20-2023 Estimated GFR (MDRD) Amer 96 mL/min >60 [facility] Comment on above: GFR Calc Estimated GFR (MDRD) Non-Af Amer 80 mL/min >60 [facility] Comment on above: Non- GFR Calc Vitamin D 25-Hydroxy 19.3 ng/mL [facility] Comment on above: Vitamin D 25(OH) Sta tus Range Deficiency <20 ng/mL (50nmol/L) Insufficiency 20 - 30 ng/mL (50 - 75 nmol/L) Sufficiency 30 - 100 ng/mL (75 - 250 nmol/L) Toxicity >100 ng/mL (>250 nmol/L) VLDL Cholesterol 21 mg/dL 5-40 [facility] RBC Auto (Bld) [#/Vol]Ordere d By: Bebeto Santana on 12-20-2023 RBC (Bld) [#/Vol] 3.43 10*6/uL 4.2-5.4 [facility] Serum or plasma calcium sabino urement (mass/volume)Ordered By: Bebeto Santana on 12-20-2023 Calcium [Mass/Vol] 8.5 mg/dL 8.5-10.[address] [facility] Serum or plasma creatinine m easurement (mass/volume)Ordered By: Bebeto Santana on 12-20-2023 Creatinine [Mass/Vol] 0.75 mg/dL 0.55-1.02 [facility] Comment on above: The validity of the calculated GFR & GFRAA in patients over 70 years has not been determined. Clinical correlation is essential. Serum or plasma thyroid stim ulating hormone (TSH) measurement (units/volume)Ordered By: Bebeto Santana on 12-20-2023 TSH Qn 2.06 uIU/mL 0.358-3.74 [facility] Serum or plasma urea nitroge n measurement (mass/volume)Ordered By: Bebeto Santana on 12-20-2023 Urea nitrogen [Mass/Vol] 7 mg/dL 7-18 [facility] Thin prep Papanicolaou smear with manual screeningOrdered By: Ebbeto Desmond on 12-20-2023 Thin prep Papanicolaou smear with manual screening 3.0 g/dL 3.2-5.0 [facility] Thin prep Papanicolaou smear with manual screening 26 U/L 15-37 [facility] Thin prep Papanicolaou smear with manual screening 5 5-15 [facility] Whole blood hemoglobin A1c/t otal hemoglobin ratio (mass fraction)Ordered By: Bebeto Santana on 12-20-2023 HbA1c (Bld) [Mass fraction] 7.2 % 3.8-5.6 [facility] Comment on above: Normal < 5.7 % Predi abetic 5.7 - 6.4 % Diabetic >or= 6.5 % Please note range changes. Absolute lymphocyte countOrd ered By: Bebeto Desmond on 09-21-2023 Lymphocytes Auto (Unsp spec) [#/Vol] 2.70 10*3/uL 0.83-4.51 [facility] Automated lymphocyte count a s percentage of total leukocytesOrdered By: Bebeto Santana on 09-21-2023 Lymphocytes/100 WBC Auto (Unsp spec) 46.9 % 19-41 [facility] Basophil percentageOrdered B y: Bebeto Santana on 09-21-2023 Basophils/100 WBC (Bld) 0.7 % 0-1 [facility] Bilirubin [Mass/Vol] 1.00 mg/dL 0.20-1.00 [facility] Comment on above: For patients on eltr ombopag therapy, use of Dimension [place] TBIL is not recommended. Chloride [Moles/Vol] 106 mmol/L 98-107 [facility] Cholesterol [Mass/Vol] 154 mg/dL <200 [facility] Comment on above: <200 mg/dL Desirable 200-240 mg/dL Borderline >240 mg/dL High Risk Eosinophils/100 WBC (Bld) 3.1 % 0-5 [facility] Glucose [Mass/Vol] 227 mg/dL 74-[address] [facility] Comment on above: Glucose result great er than or equal to 200 mg/dLsuggests DIABETES MELLITUS per A.D.A. criteria. Hemoglobin (Bld) [Mass/Vol] 10.5 g/dL 12.0-15.0 [facility] Monocytes/100 WBC (Bld) 8.5 % 0-10 [facility] Neutrophils (Bld) [#/Vol] 2.3 10*3/uL 2.0-7.7 [facility] Neutrophils/100 WBC (Bld) 40.6 % 47-70 [facility] Potassium [Moles/Vol] 3.6 mmol/L 3.5-5.1 [facility] Protein [Mass/Vol] 7.5 g/dL 6.4-8.[address] [facility] Sodium [Moles/Vol] 135 mmol/L 136-[address] [facility] Triglyceride [Mass/Vol] 94 mg/dL <199 [facility] Comment on above: The drugs N-Acetylcy steine and Metamizole may falsely depress this assay.Serum Triglycerides Reference Interval Normal <150 mg/dL Borderline high 150 - 199 mg/dL High 200 - 499 mg/dL Very High > or = 500 mg/dL WBC (Bld) [#/Vol] 5.8 10*3/uL 4.4-11.[address] [facility] Determination of erythrocyte mean corpuscular volume (MCV)Ordered By: Bebeto Santana on 09-21-2023 MCV (RBC) [Entitic vol] 92.0 fL 81-99 [facility] Erythrocyte distribution wid th ratioOrdered By: Bebeto Santana on 09-21-2023 Erythrocyte distribution width (RBC) [Ratio] 14.6 % 11.6-14.6 [facility] Erythrocyte distribution wid th standard deviationOrdered By: Bebeto Santana on 09-21-2023 Erythrocyte distribution width (RBC) [Entitic vol] 48.9 fL 35.1-43.[address] [facility] Hematocrit Auto (Bld) [Volum e fraction]Ordered By: Bebeto Santana on 09-21-2023 Hematocrit (Bld) [Volume fraction] 30.9 % 37-47 [facility] High density lipoprotein (HD L) measurementOrdered By: Bebeto Santana on 09-21-2023 Cholesterol in HDL (Body fld) [Mass/Vol] 41 mg/dL >40 [facility] Comment on above: The drugs N-Acetylcy steine and Metamizole may falsely depress this assay. Reference Range HDL <40 mg/dL Low HDL Cholesterol HDL >or= 60 mg/dL High HDL Cholesterol Immature granulocytes/100 WB C Auto (Bld)Ordered By: Bebeto Santana on 09-21-2023 Immature granulocytes/100 WBC (Bld) 0.200 % 0.0-0.9 [facility] Comment on above: IG% - Immature Granu locytes (promyelocytes, myelocytes and metamyelocytes) > 1% indicates that a LEFT SHIFT is Present. Laboratory - Chemistry and C hemistry - challengeOrdered By: Bebeto Santana on 09-21-2023 Albumin/Globulin [Mass ratio] 0.7 {ratio} 0.9-2.4 [facility] ALP [Catalytic activity/Vol] 93 U/L 45-117 [facility] ALT [Catalytic activity/Vol] 23 U/L 13-56 [facility] CO2 [Moles/Vol] 22.0 mmol/L 21.0-32.0 [facility] Globulin (S) [Mass/Vol] 4.4 g/dL 2.2-4.2 [facility] Urea nitrogen/Creatinine [Mass ratio] 13.9 mg/mg 10-20 [facility] - Hematology and Cell countsOrdered By: Bebeto Santana 09-21-2023 MCH (RBC) [Entitic mass] 31.3 pg 27.0-32.0 [facility] MCHC (RBC) [Mass/Vol] 34.0 g/dL 32-36 [facility] Nucleated RBC/100 WBC (Bld) [Ratio] 0 % 0-5 [facility] Platelets (Bld) [#/Vol] 185 10*3/uL 150-450 [facility] Low density lipoprotein (LDL ) cholesterol measurementOrdered By: Bebeto Santana 09-21-2023 Cholesterol in LDL (Body fld) [Moles/Vol] 94 mg/dL 0-130 [facility] No Panel InformationOrdered By: Bebeto Santana on 09-21-2023 Estimated GFR (MDRD) Amer 101 mL/min >60 [facility] Comment on above: GFR Calc Estimated GFR (MDRD) Non-Af Amer 84 mL/min >60 [facility] Comment on above: Non- GFR Calc Vitamin D 25-Hydroxy 27.7 ng/mL [facility] Comment on above: Vitamin D 25(OH) Sta tus Range Deficiency <20 ng/mL (50nmol/L) Insufficiency 20 - 30 ng/mL (50 - 75 nmol/L) Sufficiency 30 - 100 ng/mL (75 - 250 nmol/L) Toxicity >100 ng/mL (>250 nmol/L) Platelet mean volume Hua-Ec ker (Bld) [Entitic vol]Ordered By: Bebeto Santana on 09-21-2023 Platelet mean volume (Bld) [Entitic vol] 9.8 fL 6.2-12.0 [facility] RBC Auto (Bld) [#/Vol]Ordere d By: Bebeto Santana on 09-21-2023 RBC (Bld) [#/Vol] 3.36 10*6/uL 4.2-5.4 [facility] Serum or plasma calcium sabino urement (mass/volume)Ordered By: Bebeto Santana on 09-21-2023 Calcium [Mass/Vol] 8.9 mg/dL 8.5-10.[address] [facility] Serum or plasma creatinine m easurement (mass/volume)Ordered By: Bebeto Santana on 09-21-2023 Creatinine [Mass/Vol] 0.72 mg/dL 0.55-1.02 [facility] Comment on above: The validity of the calculated GFR & GFRAA in patients over 70 years has not been determined. Clinical correlation is essential. Serum or plasma thyroid stim ulating hormone (TSH) measurement (units/volume)Ordered By: Bebeto Santana on 09-21-2023 TSH Qn 2.20 uIU/mL 0.358-3.74 [facility] Serum or plasma urea nitroge n measurement (mass/volume)Ordered By: Bebeto Santana on 09-21-2023 Urea nitrogen [Mass/Vol] 10 mg/dL 7-18 [facility] Thin prep Papanicolaou smear with manual screeningOrdered By: Bebeto Santana on 09-21-2023 Thin prep Papanicolaou smear with manual screening 3.1 g/dL 3.2-5.0 [facility] Thin prep Papanicolaou smear with manual screening 29 U/L 15-37 [facility] Thin prep Papanicolaou smear with manual screening 7 5-15 [facility] Very low density lipoprotein (VLDL) cholesterol measurementOrdered By: Bebeto Santana on 09-21-2023 Cholesterol in VLDL Calc [Moles/Vol] 19 mg/dL 5-40 [facility] Absolute lymphocyte countOrd ered By: Bebeto Santana on 06-15-2023 Lymphocytes Auto (Unsp spec) [#/Vol] 3.02 10*3/uL 0.83-4.51 [facility] Basophil percentageOrdered B y: Bebeto Santana on 06-15-2023 Basophils/100 WBC (Bld) 0.7 % 0-1 [facility] Bilirubin [Mass/Vol] 1.30 mg/dL 0.20-1.00 [facility] Comment on above: For patients on eltr ombopag therapy, use of Dimension [place] TBIL is not recommended. Chloride [Moles/Vol] 105 mmol/L 98-107 [facility] Cholesterol [Mass/Vol] 198 mg/dL <200 [facility] Comment on above: <200 mg/dL Desirable 200-240 mg/dL Borderline >240 mg/dL High Risk Eosinophils/100 WBC (Bld) 2.8 % 0-5 [facility] Glucose [Mass/Vol] 385 mg/dL 74-[address] [facility] Comment on above: Glucose result great er than or equal to 200 mg/dLsuggests DIABETES MELLITUS per A.D.A. criteria. Neutrophils (Bld) [#/Vol] 3.5 10*3/uL 2.0-7.7 [facility] Neutrophils/100 WBC (Bld) 46.3 % 47-70 [facility] Potassium [Moles/Vol] 3.5 mmol/L 3.5-5.1 [facility] Protein [Mass/Vol] 7.7 g/dL 6.4-8.[address] [facility] Sodium [Moles/Vol] 135 mmol/L 136-[address] [facility] Triglyceride [Mass/Vol] 93 mg/dL <199 [facility] Comment on above: The drugs N-Acetylcy steine and Metamizole may falsely depress this assay.Serum Triglycerides Reference Interval Normal <150 mg/dL Borderline high 150 - 199 mg/dL High 200 - 499 mg/dL Very High > or = 500 mg/dL WBC (Bld) [#/Vol] 7.6 10*3/uL 4.4-11.[address] [facility] Blood erythrocytes count (nu mber/volume)Ordered By: Bebeto Santana on 06-15-2023 RBC (Bld) [#/Vol] 3.94 10*6/uL 4.2-5.4 [facility] Blood hemoglobin measurement (mass/volume)Ordered By: Bebeto Santana on 06-15-2023 Hemoglobin (Bld) [Mass/Vol] 12.0 g/dL 12.0-15.0 [facility] Blood lymphocytes/100 leukoc ytesOrdered By: Bebeto Santana on 06-15-2023 Lymphocytes/100 WBC (Bld) 39.7 % 19-41 [facility] Blood monocytes/100 leukocyt esOrdered By: Bebeto Santana on 06-15-2023 Monocytes/100 WBC (Bld) 10.2 % 0-10 [facility] Blood platelet mean volumeOr dered By: Bebeto Santana on 06-15-2023 Platelet mean volume (Bld) [Entitic vol] 10.2 fL 6.2-12.0 [facility] Determination of erythrocyte mean corpuscular volume (MCV)Ordered By: Bebeto Santana on 06-15-2023 MCV (RBC) [Entitic vol] 87.6 fL 81-99 [facility] Hematocrit Auto (Bld) [Volum e fraction]Ordered By: Bebeto Santana on 06-15-2023 Hematocrit (Bld) [Volume fraction] 34.5 % 37-47 [facility] Laboratory - Chemistry and C hemistry - challengeOrdered By: Bebeto Santana on 06-15-2023 ALP [Catalytic activity/Vol] 99 U/L 45-117 [facility] ALT [Catalytic activity/Vol] 18 U/L 13-56 [facility] CO2 [Moles/Vol] 18.0 mmol/L 21.0-32.0 [facility] Globulin (S) [Mass/Vol] 4.6 g/dL 2.2-4.2 [facility] Urea nitrogen/Creatinine [Mass ratio] 13.8 mg/mg 10-20 [facility] Laboratory - Hematology and Cell countsOrdered By: Bebeto Santana on 06-15-2023 Erythrocyte distribution width (RBC) [Entitic vol] 42.4 fL 35.1-43.[address] [facility] Erythrocyte distribution width (RBC) [Ratio] 13.2 % 11.6-14.6 [facility] Immature granulocytes/100 WBC (Bld) 0.300 % 0.0-0.9 [facility] Comment on above: IG% - Immature Granu locytes (promyelocytes, myelocytes and metamyelocytes) > 1% indicates that a LEFT SHIFT is Present. MCH (RBC) [Entitic mass] 30.5 pg 27.0-32.0 [facility] Nucleated RBC/100 WBC (Bld) [Ratio] 0 % 0-5 [facility] MCHC Auto (RBC) [Mass/Vol]Or dered By: Beebto Santana on 06-15-2023 MCHC (RBC) [Mass/Vol] 34.8 g/dL 32-36 [facility] No Panel InformationOrdered By: Bebeto Santana on 06-15-2023 Estimated GFR (MDRD) Amer 90 mL/min >60 [facility] Comment on above: GFR Calc Estimated GFR (MDRD) Non-Af Amer 74 mL/min >60 [facility] Comment on above: Non- GFR Calc Thyroid Stimulating Hormone (TSH) 5.09 uIU/mL 0.358-3.74 [facility] Vitamin D 25-Hydroxy 27.0 ng/mL [facility] Comment on above: Vitamin D 25(OH) Sta tus Range Deficiency <20 ng/mL (50nmol/L) Insufficiency 20 - 30 ng/mL (50 - 75 nmol/L) Sufficiency 30 - 100 ng/mL (75 - 250 nmol/L) Toxicity >100 ng/mL (>250 nmol/L) Platelets bldOrdered By: Bebeto Santana on 06-15-2023 Platelets (Bld) [#/Vol] 223 10*3/uL 150-450 [facility] Serum or plasma albumin sabino urement (mass/volume)Ordered By: Bebeto Santana on 06-15-2023 Albumin [Mass/Vol] 3.1 g/dL 3.2-5.[address] [facility] Serum or plasma albumin/glob ulin mass ratioOrdered By: Bebeto Santana on 06-15-2023 Albumin/Globulin [Mass ratio] 0.7 {ratio} 0.9-2.4 [facility] Serum or plasma calcium sabino urement (mass/volume)Ordered By: Bebeto Santana on 06-15-2023 Calcium [Mass/Vol] 8.3 mg/dL 8.5-10.[address] [facility] Serum or plasma cholesterol in HDL measurement (mass/volume)Ordered By: Bebeto Santana 06-15-2023 Cholesterol in HDL [Mass/Vol] 54 mg/dL >40 [facility] Comment on above: The drugs N-Acetylcy steine and Metamizole may falsely depress this assay. Reference Range HDL <40 mg/dL Low HDL Cholesterol HDL >or= 60 mg/dL High HDL Cholesterol Serum or plasma cholesterol in VLDL measurement (mass/volume)Ordered By: Bebeto Santana 06-15-2023 Cholesterol in VLDL [Mass/Vol] 19 mg/dL 5-40 [facility] Serum or plasma creatinine m easurement (mass/volume)Ordered By: Bebeto Santana 06-15-2023 Creatinine [Mass/Vol] 0.80 mg/dL 0.55-1.02 [facility] Comment on above: The validity of the calculated GFR & GFRAA in patients over 70 years has not been determined. Clinical correlation is essential. Serum or plasma low density lipoprotein (LDL) cholesterol measurement (mass/volume)Ordered By: Bebeto Santana 06-15-2023 Cholesterol in LDL [Mass/Vol] 125 mg/dL 0-130 [facility] Serum or plasma urea nitroge n measurement (mass/volume)Ordered By: Bebteo Santana 06-15-2023 Urea nitrogen [Mass/Vol] 11 mg/dL 7-18 [facility] Thin prep Papanicolaou smear with manual screeningOrdered By: Bebeto Santana on 06-15-2023 Thin prep Papanicolaou smear with manual screening 21 U/L 15-37 [facility] Thin prep Papanicolaou smear with manual screening 12 5-15 [facility] Absolute lymphocyte countOrd ered By: Bebeto Santana on 03-17-2023 Lymphocytes Auto (Unsp spec) [#/Vol] 2.32 10*3/uL 0.83-4.51 [facility] Basophil percentageOrdered B y: Bebeto Santana on 03-17-2023 Basophils/100 WBC (Bld) 0.7 % 0-1 [facility] Bilirubin [Mass/Vol] 1.50 mg/dL 0.20-1.00 [facility] Comment on above: For patients on eltr ombopag therapy, use of Dimension [place] TBIL is not recommended. Chloride [Moles/Vol] 104 mmol/L 98-107 [facility] Cholesterol [Mass/Vol] 163 mg/dL <200 [facility] Comment on above: <200 mg/dL Desirable 200-240 mg/dL Borderline >240 mg/dL High Risk Eosinophils/100 WBC (Bld) 2.2 % 0-5 [facility] Glucose [Mass/Vol] 289 mg/dL 74-[address] [facility] Comment on above: Glucose result great er than or equal to 200 mg/dLsuggests DIABETES MELLITUS per A.D.A. criteria. Neutrophils (Bld) [#/Vol] 2.9 10*3/uL 2.0-7.7 [facility] Neutrophils/100 WBC (Bld) 48.9 % 47-70 [facility] Potassium [Moles/Vol] 4.2 mmol/L 3.5-5.1 [facility] Protein [Mass/Vol] 7.4 g/dL 6.4-8.[address] [facility] Sodium [Moles/Vol] 134 mmol/L 136-[address] [facility] Triglyceride [Mass/Vol] 102 mg/dL <199 [facility] Comment on above: The drugs N-Acetylcy steine and Metamizole may falsely depress this assay.Serum Triglycerides Reference Interval Normal <150 mg/dL Borderline high 150 - 199 mg/dL High 200 - 499 mg/dL Very High > or = 500 mg/dL WBC (Bld) [#/Vol] 6.0 10*3/uL 4.4-11.[address] [facility] Blood erythrocytes count (nu mber/volume)Ordered By: Bebeto Santana on 03-17-2023 RBC (Bld) [#/Vol] 3.78 10*6/uL 4.2-5.4 [facility] Blood hemoglobin measurement (mass/volume)Ordered By: Bebeto Santana on 03-17-2023 Hemoglobin (Bld) [Mass/Vol] 11.5 g/dL 12.0-15.0 [facility] Blood lymphocytes/100 leukoc ytesOrdered By: [facility] Lymphocytes/100 WBC (Bld) 38.7 % 19-41 [facility] Blood monocytes/100 leukocyt esOrdered By: [facility] on 03-17-2023 Monocytes/100 WBC (Bld) 9.0 % 0-10 [facility] Blood platelet mean volumeOr dered By: Bebeto Santana on 03-17-2023 Platelet mean volume (Bld) [Entitic vol] 10.3 fL 6.2-12.0 [facility] Determination of erythrocyte mean corpuscular volume (MCV)Ordered By: Bebeto Santana on 03-17-2023 MCV (RBC) [Entitic vol] 93.1 fL 81-99 [facility] Hematocrit Auto (Bld) [Volum e fraction]Ordered By: Bebteo Santana on 03-17-2023 Hematocrit (Bld) [Volume fraction] 35.2 % 37-47 [facility] Laboratory - Chemistry and C hemistry - challengeOrdered By: Bebeto Santana on 03-17-2023 ALP [Catalytic activity/Vol] 162 U/L 45-117 [facility] ALT [Catalytic activity/Vol] 48 U/L 13-56 [facility] CO2 [Moles/Vol] 22.0 mmol/L 21.0-32.0 [facility] Globulin (S) [Mass/Vol] 4.4 g/dL 2.2-4.2 [facility] Urea nitrogen/Creatinine [Mass ratio] 10.3 mg/mg 10-20 [facility] Laboratory - Hematology and Cell countsOrdered By: Bebeto Santana 03-17-2023 Erythrocyte distribution width (RBC) [Entitic vol] 46.0 fL 35.1-43.[address] [facility] Erythrocyte distribution width (RBC) [Ratio] 13.5 % 11.6-14.6 [facility] Immature granulocytes/100 WBC (Bld) 0.500 % 0.0-0.9 [facility] Comment on above: IG% - Immature Granu locytes (promyelocytes, myelocytes and metamyelocytes) > 1% indicates that a LEFT SHIFT is Present. MCH (RBC) [Entitic mass] 30.4 pg 27.0-32.0 [facility] Nucleated RBC/100 WBC (Bld) [Ratio] 0 % 0-5 [facility] MCHC Auto (RBC) [Mass/Vol]Or dered By: Bebeto Santana on 03-17-2023 MCHC (RBC) [Mass/Vol] 32.7 g/dL 32-36 [facility] No Panel InformationOrdered By: Bebeto Santana on 03-17-2023 Estimated GFR (MDRD) Amer 93 mL/min >60 [facility] Comment on above: GFR Calc Estimated GFR (MDRD) Non-Af Amer 77 mL/min >60 [facility] Comment on above: Non- GFR Calc Thyroid Stimulating Hormone (TSH) 3.35 uIU/mL 0.358-3.74 [facility] Vitamin D 25-Hydroxy 21.8 ng/mL [facility] Comment on above: Vitamin D 25(OH) Sta tus Range Deficiency <20 ng/mL (50nmol/L) Insufficiency 20 - 30 ng/mL (50 - 75 nmol/L) Sufficiency 30 - 100 ng/mL (75 - 250 nmol/L) Toxicity >100 ng/mL (>250 nmol/L) Platelets bldOrdered By: Bebeto Santana on 03-17-2023 Platelets (Bld) [#/Vol] 252 10*3/uL 150-450 [facility] Serum or plasma albumin sabino urement (mass/volume)Ordered By: Bebeto Santana on 03-17-2023 Albumin [Mass/Vol] 3.0 g/dL 3.2-5.[address] [facility] Serum or plasma albumin/glob ulin mass ratioOrdered By: Bebeto Santana on 03-17-2023 Albumin/Globulin [Mass ratio] 0.7 {ratio} 0.9-2.4 [facility] Serum or plasma calcium sabino urement (mass/volume)Ordered By: Bebeto Santana on 03-17-2023 Calcium [Mass/Vol] 8.8 mg/dL 8.5-10.[address] [facility] Serum or plasma cholesterol in HDL measurement (mass/volume)Ordered By: Bebeto Santana on 03-17-2023 Cholesterol in HDL [Mass/Vol] 36 mg/dL >40 [facility] Comment on above: The drugs N-Acetylcy steine and Metamizole may falsely depress this assay. Reference Range HDL <40 mg/dL Low HDL Cholesterol HDL >or= 60 mg/dL High HDL Cholesterol Serum or plasma cholesterol in VLDL measurement (mass/volume)Ordered By: Bebeto Santana on 03-17-2023 Cholesterol in VLDL [Mass/Vol] 20 mg/dL 5-40 [facility] Serum or plasma creatinine m easurement (mass/volume)Ordered By: Bebeto Santana on 03-17-2023 Creatinine [Mass/Vol] 0.77 mg/dL 0.55-1.02 [facility] Comment on above: The validity of the calculated GFR & GFRAA in patients over 70 years has not been determined. Clinical correlation is essential. Serum or plasma low density lipoprotein (LDL) cholesterol measurement (mass/volume)Ordered By: Bebeto Santana on 03-17-2023 Cholesterol in LDL [Mass/Vol] 107 mg/dL 0-130 [facility] Serum or plasma urea nitroge n measurement (mass/volume)Ordered By: Bebeto Santana on 03-17-2023 Urea nitrogen [Mass/Vol] 8 mg/dL 7-18 [facility] Thin prep Papanicolaou smear with manual screeningOrdered By: Bebeto Santana on 03-17-2023 Thin prep Papanicolaou smear with manual screening 41 U/L 15-37 [facility] Thin prep Papanicolaou smear with manual screening 8 5-15 [facility] Absolute lymphocyte countOrd ered By: Dr. Santana on 12-21-2022 Lymphocytes Auto (Unsp spec) [#/Vol] 2.70 10*3/uL 0.83-4.51 [facility] Basophil percentageOrdered B y: Dr. Santana on 12-21-2022 Basophils/100 WBC (Bld) 0.7 % 0-1 [facility] Eosinophils/100 WBC (Bld) 3.6 % 0-5 [facility] Neutrophils (Bld) [#/Vol] 3.4 10*3/uL 2.0-7.7 [facility] Neutrophils/100 WBC (Bld) 46.8 % 47-70 [facility] WBC (Bld) [#/Vol] 7.3 10*3/uL 4.4-11.[address] [facility] Blood erythrocytes count (nu mber/volume)Ordered By: Dr. Santana on 12-21-2022 RBC (Bld) [#/Vol] 3.57 10*6/uL 4.2-5.4 [facility] Blood hemoglobin measurement (mass/volume)Ordered By: Dr. Santana on 12-21-2022 Hemoglobin (Bld) [Mass/Vol] 11.0 g/dL 12.0-15.0 [facility] Blood lymphocytes/100 leukoc ytesOrdered By: Dr. Santana on 12-21-2022 Lymphocytes/100 WBC (Bld) 36.9 % 19-41 [facility] Blood monocytes/100 leukocyt esOrdered By: Dr. Santana on 12-21-2022 Monocytes/100 WBC (Bld) 11.7 % 0-10 [facility] Blood platelet mean volumeOr dered By: Dr. Santana on 12-21-2022 Platelet mean volume (Bld) [Entitic vol] 9.7 fL 6.2-12.0 [facility] Determination of erythrocyte mean corpuscular volume (MCV)Ordered By: Dr. Santana on 12-21-2022 MCV (RBC) [Entitic vol] 92.4 fL 81-99 [facility] Hematocrit Auto (Bld) [Volum e fraction]Ordered By: Dr. Santana on 12-21-2022 Hematocrit (Bld) [Volume fraction] 33.0 % 37-47 [facility] Hemoglobin in reticulocytes (mass per reticulocyte)Ordered By: Dr. Santana on 12-21-2022 Hemoglobin (Reticulocytes) [Entitic mass] 34.2 pg 30-35 [facility] Iron measurement (mass/mass) Ordered By: Dr. Santana on 12-21-2022 Iron (Unsp spec) [Mass/Mass] 61 ug/dL 50-170 [facility] Laboratory - Chemistry and C hemistry - challengeOrdered By: Dr. Santana on 12-21-2022 Cobalamin (Vitamin B12) [Mass/Vol] 312 pg/mL 211-911 [facility] - Hematology and Cell countsOrdered By: Dr. Santana on 12-21-2022 Erythrocyte distribution width (RBC) [Entitic vol] 46.0 fL 35.1-43.[address] [facility] Erythrocyte distribution width (RBC) [Ratio] 13.5 % 11.6-14.6 [facility] Immature granulocytes/100 WBC (Bld) 0.300 % 0.0-0.9 [facility] Comment on above: IG% - Immature Granu locytes (promyelocytes, myelocytes and metamyelocytes) > 1% indicates that a LEFT SHIFT is Present. MCH (RBC) [Entitic mass] 30.8 pg 27.0-32.0 [facility] Nucleated RBC/100 WBC (Bld) [Ratio] 0 % 0-5 [facility] MCHC Auto (RBC) [Mass/Vol]Or dered By: Dr. Santana on 12-21-2022 MCHC (RBC) [Mass/Vol] 33.3 g/dL 32-36 [facility] No Panel InformationOrdered By: Dr. Santana on 12-21-2022 Immature Reticulocyte Fraction 6.10 % 3.00-15.90 [facility] Reticulocyte Count 1.63 % 0.5-1.[address] [facility] Total Iron Binding Capacity 295 ug/dL 250-450 [facility] Platelets bldOrdered By: Dr. Santana on 12-21-2022 Platelets (Bld) [#/Vol] 234 10*3/uL 150-450 [facility] Serum or plasma ferritin uzma surement (mass/volume)Ordered By: Dr. Santana on 12-21-2022 Ferritin [Mass/Vol] 32 ng/mL 8-252 [facility] Serum or plasma folate measu rement (mass/volume)Ordered By: Dr. Santana on 12-21-2022 Folate [Mass/Vol] 18.50 ng/mL 3.1-55.[address] [facility] Serum or plasma iron saturat ion measurement (mass fraction)Ordered By: Dr. Santana on 12-21-2022 Iron saturation [Mass fraction] 20.7 % 15.0-55.0 [facility] Absolute lymphocyte countOrd ered By: Dr. Santana on 12-16-2022 Lymphocytes Auto (Unsp spec) [#/Vol] 2.52 10*3/uL 0.83-4.51 [facility] Basophil percentageOrdered B y: Dr. Santana on 12-16-2022 Basophils/100 WBC (Bld) 0.6 % 0-1 [facility] Bilirubin [Mass/Vol] 0.90 mg/dL 0.20-1.00 [facility] Comment on above: For patients on eltr ombopag therapy, use of Dimension [place] TBIL is not recommended. Chloride [Moles/Vol] 107 mmol/L 98-107 [facility] Cholesterol [Mass/Vol] 191 mg/dL <200 [facility] Comment on above: <200 mg/dL Desirable 200-240 mg/dL Borderline >240 mg/dL High Risk Eosinophils/100 WBC (Bld) 4.2 % 0-5 [facility] Glucose [Mass/Vol] 202 mg/dL 74-[address] [facility] Comment on above: Glucose result great er than or equal to 200 mg/dLsuggests DIABETES MELLITUS per A.D.A. criteria. Neutrophils (Bld) [#/Vol] 2.7 10*3/uL 2.0-7.7 [facility] Neutrophils/100 WBC (Bld) 43.9 % 47-70 [facility] Potassium [Moles/Vol] 3.9 mmol/L 3.5-5.1 [facility] Protein [Mass/Vol] 7.6 g/dL 6.4-8.[address] [facility] Sodium [Moles/Vol] 134 mmol/L 136-[address] [facility] Triglyceride [Mass/Vol] 96 mg/dL <199 [facility] Comment on above: The drugs N-Acetylcy steine and Metamizole may falsely depress this assay.Serum Triglycerides Reference Interval Normal <150 mg/dL Borderline high 150 - 199 mg/dL High 200 - 499 mg/dL Very High > or = 500 mg/dL WBC (Bld) [#/Vol] 6.2 10*3/uL 4.4-11.[address] [facility] Blood erythrocytes count (nu mber/volume)Ordered By: Dr. Santana on 12-16-2022 RBC (Bld) [#/Vol] 3.36 10*6/uL 4.2-5.4 [facility] Blood hemoglobin measurement (mass/volume)Ordered By: Dr. Santana on 12-16-2022 Hemoglobin (Bld) [Mass/Vol] 10.4 g/dL 12.0-15.0 [facility] Blood lymphocytes/100 leukoc ytesOrdered By: Dr. Santana on 12-16-2022 Lymphocytes/100 WBC (Bld) 40.4 % 19-41 [facility] Blood monocytes/100 leukocyt esOrdered By: Dr. Santana on 12-16-2022 Monocytes/100 WBC (Bld) 10.7 % 0-10 [facility] Blood platelet mean volumeOr dered By: Dr. Santana on 12-16-2022 Platelet mean volume (Bld) [Entitic vol] 9.8 fL 6.2-12.0 [facility] Determination of erythrocyte mean corpuscular volume (MCV)Ordered By: Dr. Santana on 12-16-2022 MCV (RBC) [Entitic vol] 90.2 fL 81-99 [facility] Hematocrit Auto (Bld) [Volum e fraction]Ordered By: Dr. Santana on 12-16-2022 Hematocrit (Bld) [Volume fraction] 30.3 % 37-47 [facility] Laboratory - Chemistry and C hemistry - challengeOrdered By: Dr. Santana on 12-16-2022 ALP [Catalytic activity/Vol] 66 U/L 45-117 [facility] ALT [Catalytic activity/Vol] 17 U/L 13-56 [facility] CO2 [Moles/Vol] 22.0 mmol/L 21.0-32.0 [facility] Globulin (S) [Mass/Vol] 4.4 g/dL 2.2-4.2 [facility] Urea nitrogen/Creatinine [Mass ratio] 12.8 mg/mg 10-20 [facility] - Hematology and Cell countsOrdered By: Dr. Santana on 12-16-2022 Erythrocyte distribution width (RBC) [Entitic vol] 44.2 fL 35.1-43.[address] [facility] Erythrocyte distribution width (RBC) [Ratio] 13.6 % 11.6-14.6 [facility] Immature granulocytes/100 WBC (Bld) 0.200 % 0.0-0.9 [facility] Comment on above: IG% - Immature Granu locytes (promyelocytes, myelocytes and metamyelocytes) > 1% indicates that a LEFT SHIFT is Present. MCH (RBC) [Entitic mass] 31.0 pg 27.0-32.0 [facility] Nucleated RBC/100 WBC (Bld) [Ratio] 0 % 0-5 [facility] MCHC Auto (RBC) [Mass/Vol]Or dered By: Dr. Santana on 12-16-2022 MCHC (RBC) [Mass/Vol] 34.3 g/dL 32-36 [facility] No Panel InformationOrdered By: Dr. Santana on 12-16-2022 Estimated GFR (MDRD) Amer 92 mL/min >60 [facility] Comment on above: GFR Calc Estimated GFR (MDRD) Non-Af Amer 76 mL/min >60 [facility] Comment on above: Non- GFR Calc Thyroid Stimulating Hormone (TSH) 0.64 uIU/mL 0.358-3.74 [facility] Vitamin D 25-Hydroxy 37.9 ng/mL [facility] Comment on above: Vitamin D 25(OH) Sta tus Range Deficiency <20 ng/mL (50nmol/L) Insufficiency 20 - 30 ng/mL (50 - 75 nmol/L) Sufficiency 30 - 100 ng/mL (75 - 250 nmol/L) Toxicity >100 ng/mL (>250 nmol/L) Platelets bldOrdered By: Dr. Santana on 12-16-2022 Platelets (Bld) [#/Vol] 212 10*3/uL 150-450 [facility] Serum or plasma albumin sabino urement (mass/volume)Ordered By: Dr. Santana on 12-16-2022 Albumin [Mass/Vol] 3.2 g/dL 3.2-5.[address] [facility] Serum or plasma albumin/glob ulin mass ratioOrdered By: Dr. Santana on 12-16-2022 Albumin/Globulin [Mass ratio] 0.7 {ratio} 0.9-2.4 [facility] Serum or plasma calcium sabino urement (mass/volume)Ordered By: Dr. Santana on 12-16-2022 Calcium [Mass/Vol] 8.7 mg/dL 8.5-10.[address] [facility] Serum or plasma cholesterol in HDL measurement (mass/volume)Ordered By: Dr. Santana on 12-16-2022 Cholesterol in HDL [Mass/Vol] 50 mg/dL >40 [facility] Comment on above: The drugs N-Acetylcy steine and Metamizole may falsely depress this assay. Reference Range HDL <40 mg/dL Low HDL Cholesterol HDL >or= 60 mg/dL High HDL Cholesterol Serum or plasma cholesterol in VLDL measurement (mass/volume)Ordered By: Dr. Santana on 12-16-2022 Cholesterol in VLDL [Mass/Vol] 19 mg/dL 5-40 [facility] Serum or plasma creatinine m easurement (mass/volume)Ordered By: Dr. Santana on 12-16-2022 Creatinine [Mass/Vol] 0.78 mg/dL 0.55-1.02 [facility] Comment on above: The validity of the calculated GFR & GFRAA in patients over 70 years has not been determined. Clinical correlation is essential. Serum or plasma low density lipoprotein (LDL) cholesterol measurement (mass/volume)Ordered By: Dr. Santana on 12-16-2022 Cholesterol in LDL [Mass/Vol] 122 mg/dL 0-130 [facility] Serum or plasma urea nitroge n measurement (mass/volume)Ordered By: Dr. Santana on 12-16-2022 Urea nitrogen [Mass/Vol] 10 mg/dL 7-18 [facility] Thin prep Papanicolaou smear with manual screeningOrdered By: Dr. Santana on 12-16-2022 Thin prep Papanicolaou smear with manual screening 25 U/L 15-37 [facility] Thin prep Papanicolaou smear with manual screening 5 5-15 [facility] Glucose Glucometer (BldC) [M ass/Vol]Ordered By: Antony Tran on 11-24-2022 Glucose [Mass/Vol] 182 mg/dL 74-[address] [facility] Comment on above: MANAGEMENT OF PATIEN T CARE PER NURSING PROTOCOL Absolute lymphocyte countOrd ered By: Bebeto Santana on 09-16-2022 Lymphocytes Auto (Unsp spec) [#/Vol] 2.69 10*3/uL 0.83-4.51 [facility] Basophil percentageOrdered B y: Bebeto Fieldok on 09-16-2022 Basophils/100 WBC (Bld) 0.5 % 0-1 [facility] Bilirubin [Mass/Vol] 1.10 mg/dL 0.20-1.00 [facility] Comment on above: For patients on eltr ombopag therapy, use of Dimension [place] TBIL is not recommended. Chloride [Moles/Vol] 100 mmol/L 98-107 [facility] Cholesterol [Mass/Vol] 179 mg/dL <200 [facility] Comment on above: <200 mg/dL Desirable 200-240 mg/dL Borderline >240 mg/dL High Risk Eosinophils/100 WBC (Bld) 2.7 % 0-5 [facility] Glucose [Mass/Vol] 374 mg/dL 74-[address] [facility] Comment on above: Glucose result great er than or equal to 200 mg/dLsuggests DIABETES MELLITUS per A.D.A. criteria. Neutrophils (Bld) [#/Vol] 3.8 10*3/uL 2.0-7.7 [facility] Neutrophils/100 WBC (Bld) 50.5 % 47-70 [facility] Potassium [Moles/Vol] 3.5 mmol/L 3.5-5.1 [facility] Protein [Mass/Vol] 7.4 g/dL 6.4-8.[address] [facility] Sodium [Moles/Vol] 135 mmol/L 136-[address] [facility] Triglyceride [Mass/Vol] 89 mg/dL <199 [facility] Comment on above: The drugs N-Acetylcy steine and Metamizole may falsely depress this assay.Serum Triglycerides Reference Interval Normal <150 mg/dL Borderline high 150 - 199 mg/dL High 200 - 499 mg/dL Very High > or = 500 mg/dL WBC (Bld) [#/Vol] 7.5 10*3/uL 4.4-11.[address] [facility] Blood erythrocytes count (nu mber/volume)Ordered By: Bebeto Santana on 09-16-2022 RBC (Bld) [#/Vol] 3.82 10*6/uL 4.2-5.4 [facility] Blood hemoglobin measurement (mass/volume)Ordered By: Bebeto Santana on 09-16-2022 Hemoglobin (Bld) [Mass/Vol] 11.5 g/dL 12.0-15.0 [facility] Blood lymphocytes/100 leukoc ytesOrdered By: Bebeto Santana on 09-16-2022 Lymphocytes/100 WBC (Bld) 36.1 % 19-41 [facility] Blood monocytes/100 leukocyt esOrdered By: Bebeto Santana on 09-16-2022 Monocytes/100 WBC (Bld) 9.8 % 0-10 [facility] Blood platelet mean volumeOr dered By: Bebeto Santana on 09-16-2022 Platelet mean volume (Bld) [Entitic vol] 10.4 fL 6.2-12.0 [facility] Determination of erythrocyte mean corpuscular volume (MCV)Ordered By: Bebeto Santana on 09-16-2022 MCV (RBC) [Entitic vol] 86.4 fL 81-99 [facility] Hematocrit Auto (Bld) [Volum e fraction]Ordered By: Bebeto Santana on 09-16-2022 Hematocrit (Bld) [Volume fraction] 33.0 % 37-47 [facility] Laboratory - Chemistry and C hemistry - challengeOrdered By: Bebeto Santana on 09-16-2022 ALP [Catalytic activity/Vol] 81 U/L 45-117 [facility] ALT [Catalytic activity/Vol] 19 U/L 13-56 [facility] CO2 [Moles/Vol] 23.0 mmol/L 21.0-32.0 [facility] Globulin (S) [Mass/Vol] 4.4 g/dL 2.2-4.2 [facility] Urea nitrogen/Creatinine [Mass ratio] 16.9 mg/mg 10-20 [facility] Laboratory - Hematology and Cell countsOrdered By: Bebeto Santana on 09-16-2022 Erythrocyte distribution width (RBC) [Entitic vol] 40.5 fL 35.1-43.[address] [facility] Erythrocyte distribution width (RBC) [Ratio] 13.2 % 11.6-14.6 [facility] Immature granulocytes/100 WBC (Bld) 0.400 % 0.0-0.9 [facility] Comment on above: IG% - Immature Granu locytes (promyelocytes, myelocytes and metamyelocytes) > 1% indicates that a LEFT SHIFT is Present. MCH (RBC) [Entitic mass] 30.1 pg 27.0-32.0 [facility] Nucleated RBC/100 WBC (Bld) [Ratio] 0 % 0-5 [facility] MCHC Auto (RBC) [Mass/Vol]Or dered By: Bebeto Santana on 09-16-2022 MCHC (RBC) [Mass/Vol] 34.8 g/dL 32-36 [facility] No Panel InformationOrdered By: Bebeto Santana on 09-16-2022 Estimated GFR (MDRD) Amer 87 mL/min >60 [facility] Comment on above: GFR Calc Estimated GFR (MDRD) Non-Af Amer 72 mL/min >60 [facility] Comment on above: Non- GFR Calc Thyroid Stimulating Hormone (TSH) 4.20 uIU/mL 0.358-3.74 [facility] Vitamin D 25-Hydroxy 26.7 ng/mL [facility] Comment on above: Vitamin D 25(OH) Sta tus Range Deficiency <20 ng/mL (50nmol/L) Insufficiency 20 - 30 ng/mL (50 - 75 nmol/L) Sufficiency 30 - 100 ng/mL (75 - 250 nmol/L) Toxicity >100 ng/mL (>250 nmol/L) Platelets bldOrdered By: Bebeto Santana on 09-16-2022 Platelets (Bld) [#/Vol] 213 10*3/uL 150-450 [facility] Serum or plasma albumin sabino urement (mass/volume)Ordered By: Bebeto Santana on 09-16-2022 Albumin [Mass/Vol] 3.0 g/dL 3.2-5.[address] [facility] Serum or plasma albumin/glob ulin mass ratioOrdered By: Bebeto Santana on 09-16-2022 Albumin/Globulin [Mass ratio] 0.7 {ratio} 0.9-2.4 [facility] Serum or plasma calcium sabino urement (mass/volume)Ordered By: Bebeto Santana on 09-16-2022 Calcium [Mass/Vol] 9.2 mg/dL 8.5-10.[address] [facility] Serum or plasma cholesterol in HDL measurement (mass/volume)Ordered By: Bebeto Santana on 09-16-2022 Cholesterol in HDL [Mass/Vol] 58 mg/dL >40 [facility] Comment on above: The drugs N-Acetylcy steine and Metamizole may falsely depress this assay. Reference Range HDL <40 mg/dL Low HDL Cholesterol HDL >or= 60 mg/dL High HDL Cholesterol Serum or plasma cholesterol in VLDL measurement (mass/volume)Ordered By: Bebeto Santana on 09-16-2022 Cholesterol in VLDL [Mass/Vol] 18 mg/dL 5-40 [facility] Serum or plasma creatinine m easurement (mass/volume)Ordered By: Bebeto Santana on 09-16-2022 Creatinine [Mass/Vol] 0.83 mg/dL 0.55-1.02 [facility] Comment on above: The validity of the calculated GFR & GFRAA in patients over 70 years has not been determined. Clinical correlation is essential. Serum or plasma low density lipoprotein (LDL) cholesterol measurement (mass/volume)Ordered By: Bebeto Santana on 09-16-2022 Cholesterol in LDL [Mass/Vol] 103 mg/dL 0-130 [facility] Serum or plasma urea nitroge n measurement (mass/volume)Ordered By: Bebeto Santana on 09-16-2022 Urea nitrogen [Mass/Vol] 14 mg/dL 7-18 [facility] Thin prep Papanicolaou smear with manual screeningOrdered By: Bebeto Santana on 09-16-2022 Thin prep Papanicolaou smear with manual screening 21 U/L 15-37 [facility] Thin prep Papanicolaou smear with manual screening 12 5-15 [facility] Absolute lymphocyte countOrd ered By: Dr. Santana on 07-08-2022 Lymphocytes Auto (Unsp spec) [#/Vol] 1.66 10*3/uL 0.83-4.51 [facility] Basophil percentageOrdered B y: Dr. Santana on 07-08-2022 Basophils/100 WBC (Bld) 0.8 % 0-1 [facility] Bilirubin [Mass/Vol] 1.20 mg/dL 0.20-1.00 [facility] Comment on above: For patients on eltr ombopag therapy, use of Dimension [place] TBIL is not recommended. Chloride [Moles/Vol] 104 mmol/L 98-107 [facility] Cholesterol [Mass/Vol] 176 mg/dL <200 [facility] Comment on above: <200 mg/dL Desirable 200-240 mg/dL Borderline >240 mg/dL High Risk Eosinophils/100 WBC (Bld) 9.7 % 0-5 [facility] Glucose [Mass/Vol] 278 mg/dL 74-[address] [facility] Comment on above: Glucose result great er than or equal to 200 mg/dLsuggests DIABETES MELLITUS per A.D.A. criteria. Neutrophils (Bld) [#/Vol] 2.5 10*3/uL 2.0-7.7 [facility] Neutrophils/100 WBC (Bld) 48.1 % 47-70 [facility] Potassium [Moles/Vol] 3.4 mmol/L 3.5-5.1 [facility] Protein [Mass/Vol] 7.4 g/dL 6.4-8.[address] [facility] Sodium [Moles/Vol] 138 mmol/L 136-[address] [facility] Triglyceride [Mass/Vol] 85 mg/dL <199 [facility] Comment on above: The drugs N-Acetylcy steine and Metamizole may falsely depress this assay.Serum Triglycerides Reference Interval Normal <150 mg/dL Borderline high 150 - 199 mg/dL High 200 - 499 mg/dL Very High > or = 500 mg/dL WBC (Bld) [#/Vol] 5.1 10*3/uL 4.4-11.[address] [facility] Blood erythrocytes count (nu mber/volume)Ordered By: Dr. Santana on 07-08-2022 RBC (Bld) [#/Vol] 3.75 10*6/uL 4.2-5.4 [facility] Blood hemoglobin measurement (mass/volume)Ordered By: Dr. Santana on 07-08-2022 Hemoglobin (Bld) [Mass/Vol] 11.6 g/dL 12.0-15.0 [facility] Blood lymphocytes/100 leukoc ytesOrdered By: Dr. Santana on 07-08-2022 Lymphocytes/100 WBC (Bld) 32.4 % 19-41 [facility] Blood monocytes/100 leukocyt esOrdered By: Dr. Santana on 07-08-2022 Monocytes/100 WBC (Bld) 8.8 % 0-10 [facility] Blood platelet mean volumeOr dered By: Dr. Santana on 07-08-2022 Platelet mean volume (Bld) [Entitic vol] 10.3 fL 6.2-12.0 [facility] Determination of erythrocyte mean corpuscular volume (MCV)Ordered By: Dr. Santana on 07-08-2022 MCV (RBC) [Entitic vol] 90.1 fL 81-99 [facility] Hematocrit Auto (Bld) [Volum e fraction]Ordered By: Dr. Santana on 07-08-2022 Hematocrit (Bld) [Volume fraction] 33.8 % 37-47 [facility] Laboratory - Chemistry and C hemistry - challengeOrdered By: Dr. Santana on 07-08-2022 ALP [Catalytic activity/Vol] 99 U/L 45-117 [facility] ALT [Catalytic activity/Vol] 16 U/L 13-56 [facility] CO2 [Moles/Vol] 25.0 mmol/L 21.0-32.0 [facility] Globulin (S) [Mass/Vol] 4.3 g/dL 2.2-4.2 [facility] Urea nitrogen/Creatinine [Mass ratio] 11.6 mg/mg 10-20 [facility] Laboratory - Hematology and Cell countsOrdered By: Dr. Santana on 07-08-2022 Erythrocyte distribution width (RBC) [Entitic vol] 46.6 fL 35.1-43.[address] [facility] Erythrocyte distribution width (RBC) [Ratio] 14.4 % 11.6-14.6 [facility] Immature granulocytes/100 WBC (Bld) 0.200 % 0.0-0.9 [facility] Comment on above: IG% - Immature Granu locytes (promyelocytes, myelocytes and metamyelocytes) > 1% indicates that a LEFT SHIFT is Present. MCH (RBC) [Entitic mass] 30.9 pg 27.0-32.0 [facility] Nucleated RBC/100 WBC (Bld) [Ratio] 0 % 0-5 [facility] MCHC Auto (RBC) [Mass/Vol]Or dered By: Dr. Santana on 07-08-2022 MCHC (RBC) [Mass/Vol] 34.3 g/dL 32-36 [facility] No Panel InformationOrdered By: Dr. Santana on 07-08-2022 Estimated GFR (MDRD) Amer 125 mL/min >60 [facility] Comment on above: GFR Calc Estimated GFR (MDRD) Non-Af Amer 103 mL/min >60 [facility] Comment on above: Non- GFR Calc Thyroid Stimulating Hormone (TSH) 5.16 uIU/mL 0.358-3.74 [facility] Vitamin D 25-Hydroxy 26.2 ng/mL [facility] Comment on above: Vitamin D 25(OH) Sta tus Range Deficiency <20 ng/mL (50nmol/L) Insufficiency 20 - 30 ng/mL (50 - 75 nmol/L) Sufficiency 30 - 100 ng/mL (75 - 250 nmol/L) Toxicity >100 ng/mL (>250 nmol/L) Platelets bldOrdered By: Dr. Santana on 07-08-2022 Platelets (Bld) [#/Vol] 171 10*3/uL 150-450 [facility] Serum or plasma albumin sabino urement (mass/volume)Ordered By: Dr. Santana on 07-08-2022 Albumin [Mass/Vol] 3.1 g/dL 3.2-5.[address] [facility] Serum or plasma albumin/glob ulin mass ratioOrdered By: Dr. Santana on 07-08-2022 Albumin/Globulin [Mass ratio] 0.7 {ratio} 0.9-2.4 [facility] Serum or plasma calcium sabino urement (mass/volume)Ordered By: Dr. Santana on 07-08-2022 Calcium [Mass/Vol] 8.7 mg/dL 8.5-10.[address] [facility] Serum or plasma cholesterol in HDL measurement (mass/volume)Ordered By: Dr. Santana on 07-08-2022 Cholesterol in HDL [Mass/Vol] 50 mg/dL >40 [facility] Comment on above: The drugs N-Acetylcy steine and Metamizole may falsely depress this assay. Reference Range HDL <40 mg/dL Low HDL Cholesterol HDL >or= 60 mg/dL High HDL Cholesterol Serum or plasma cholesterol in VLDL measurement (mass/volume)Ordered By: Dr. Santana on 07-08-2022 Cholesterol in VLDL [Mass/Vol] 17 mg/dL 5-40 [facility] Serum or plasma creatinine m easurement (mass/volume)Ordered By: Dr. Santana on 07-08-2022 Creatinine [Mass/Vol] 0.60 mg/dL 0.55-1.02 [facility] Comment on above: The validity of the calculated GFR & GFRAA in patients over 70 years has not been determined. Clinical correlation is essential. Serum or plasma low density lipoprotein (LDL) cholesterol measurement (mass/volume)Ordered By: Dr. Santana on 07-08-2022 Cholesterol in LDL [Mass/Vol] 109 mg/dL 0-130 [facility] Serum or plasma urea nitroge n measurement (mass/volume)Ordered By: Dr. Santana on 07-08-2022 Urea nitrogen [Mass/Vol] 7 mg/dL 7-18 [facility] Thin prep Papanicolaou smear with manual screeningOrdered By: Dr. Santana on 07-08-2022 Thin prep Papanicolaou smear with manual screening 20 U/L 15-37 [facility] Thin prep Papanicolaou smear with manual screening 9 5-15 [facility] No Panel Informationon 05-25 Thyroid Stimulating Hormone (TSH) 2.85 uIU/mL 0.358-3.74 [facility] Work Phone: Absolute lymphocyte counton 04-09-2022 Lymphocytes Auto (Unsp spec) [#/Vol] 2.49 10*3/uL 0.83-4.51 [facility] Work Phone: Basophil percentageon 2021 Basophils/100 WBC (Bld) 0.3 % 0-1 [facility] Work Phone: Bilirubin [Mass/Vol] 0.90 mg/dL 0.20-1.00 [facility] Work Phone: Comment on above: For patients on eltr ombopag therapy, use of Dimension [place] TBIL is not recommended. Chloride [Moles/Vol] 103 mmol/L 98-107 [facility] Work Phone: Cholesterol [Mass/Vol] 154 mg/dL <200 [facility] Work Phone: Comment on above: <200 mg/dL Desirable 200-240 mg/dL Borderline >240 mg/dL High Risk Eosinophils/100 WBC (Bld) 5.2 % 0-5 [facility] Work Phone: Glucose [Mass/Vol] 337 mg/dL 74-[address] [facility] Work Phone: Comment on above: Glucose result great er than or equal to 200 mg/dLsuggests DIABETES MELLITUS per A.D.A. criteria. Neutrophils (Bld) [#/Vol] 2.6 10*3/uL 2.0-7.7 [facility] Work Phone: Neutrophils/100 WBC (Bld) 44.2 % 47-70 [facility] Work Phone: Potassium [Moles/Vol] 3.9 mmol/L 3.5-5.1 [facility] Work Phone: Protein [Mass/Vol] 7.1 g/dL 6.4-8.[address] [facility] Work Phone: [phone] Sodium [Moles/Vol] 135 mmol/L 136-[address] [facility] Work Phone: Triglyceride [Mass/Vol] 105 mg/dL <199 [facility] Work Phone: Comment on above: The drugs N-Acetylcy steine and Metamizole may falsely depress this assay.Serum Triglycerides Reference Interval Normal <150 mg/dL Borderline high 150 - 199 mg/dL High 200 - 499 mg/dL Very High > or = 500 mg/dL WBC (Bld) [#/Vol] 6.0 10*3/uL 4.4-11.0 [facility]: Blood erythrocytes count (nu mber/volume)on 04-09-2022 RBC (Bld) [#/Vol] 3.33 10*6/uL 4.2-5.[address] [facility] Work Phone: Blood hemoglobin measurement (mass/volume)on 04-09-2022 Hemoglobin (Bld) [Mass/Vol] 10.0 g/dL 12.0-15.0 [facility] Work Phone: Blood lymphocytes/100 leukoc yteson 04-09-2022 Lymphocytes/100 WBC (Bld) 41.8 % 19-41 [facility] Work Phone: Blood monocytes/100 leukocyt eson 04-09-2022 Monocytes/100 WBC (Bld) 8.2 % 0-10 [facility] Work Phone: Blood platelet mean volumeon 04-09-2022 Platelet mean volume (Bld) [Entitic vol] 10.0 fL 6.2-12.0 [facility] Work Phone: Determination of erythrocyte mean corpuscular volume (MCV)on 04-09-2022 MCV (RBC) [Entitic vol] 88.9 fL 81-99 [facility] Work Phone: Hematocrit Auto (Bld) [Volum e fraction]on 04-09-2022 Hematocrit (Bld) [Volume fraction] 29.6 % 37-47 [facility] Work Phone: Laboratory - Chemistry and C hemistry - challengeon 04-09-2022 ALP [Catalytic activity/Vol] 101 U/L 45-117 [facility] Work Phone: ALT [Catalytic activity/Vol] 20 U/L 13-56 [facility] Work Phone: CO2 [Moles/Vol] 24.0 mmol/L 21.0-32.0 [facility] Work Phone: Globulin (S) [Mass/Vol] 4.4 g/dL 2.2-4.2 [facility] Work Phone: Urea nitrogen/Creatinine [Mass ratio] 10.9 mg/mg 10-20 [facility] Work Phone: Laboratory - Hematology and Cell countson 04-09-2022 Erythrocyte distribution width (RBC) [Entitic vol] 43.0 fL 35.1-43.[address] [facility] Work Phone: Erythrocyte distribution width (RBC) [Ratio] 13.3 % 11.6-14.6 [facility] Work Phone: Immature granulocytes/100 WBC (Bld) 0.300 % 0.0-0.9 [facility] Work Phone: Comment on above: IG% - Immature Granu locytes (promyelocytes, myelocytes and metamyelocytes) > 1% indicates that a LEFT SHIFT is Present. MCH (RBC) [Entitic mass] 30.0 pg 27.0-32.0 [facility] Work Phone: Nucleated RBC/100 WBC (Bld) [Ratio] 0 % 0-5 [facility] Work Phone: MCHC Auto (RBC) [Mass/Vol]on 04-09-2022 MCHC (RBC) [Mass/Vol] 33.8 g/dL 32-36 [facility] Work Phone: No Panel Informationon 04-09 Estimated GFR (MDRD) Amer 99 mL/min >60 [facility] Work Phone: Comment on above: GFR Calc Estimated GFR (MDRD) Non-Af Amer 82 mL/min >60 [facility] Work Phone: Comment on above: Non- GFR Calc Thyroid Stimulating Hormone (TSH) 5.32 uIU/mL 0.358-3.74 [facility] Work Phone: Vitamin D 25-Hydroxy 28.3 ng/mL [facility] Work Phone: Comment on above: Vitamin D 25(OH) Sta tus Range Deficiency <20 ng/mL (50nmol/L) Insufficiency 20 - 30 ng/mL (50 - 75 nmol/L) Sufficiency 30 - 100 ng/mL (75 - 250 nmol/L) Toxicity >100 ng/mL (>250 nmol/L) Platelets bldon 04-09-2022 Platelets (Bld) [#/Vol] 203 10*3/uL 150-450 [facility] Work Phone: Serum or plasma albumin sabino urement (mass/volume)on 04-09-2022 Albumin [Mass/Vol] 2.7 g/dL 3.2-5.[address] [facility] Work Phone: Serum or plasma albumin/glob ulin mass ratioon 04-09-2022 Albumin/Globulin [Mass ratio] 0.6 {ratio} 0.9-2.4 [facility] Work Phone: Serum or plasma calcium sabino urement (mass/volume)on 04-09-2022 Calcium [Mass/Vol] 8.7 mg/dL 8.5-10.[address] [facility] Work Phone: Serum or plasma cholesterol in HDL measurement (mass/volume)on 04-09-2022 Cholesterol in HDL [Mass/Vol] 43 mg/dL >40 [facility] Work Phone: Comment on above: The drugs N-Acetylcy steine and Metamizole may falsely depress this assay. Reference Range HDL <40 mg/dL Low HDL Cholesterol HDL >or= 60 mg/dL High HDL Cholesterol Serum or plasma cholesterol in VLDL measurement (mass/volume)on 04-09-2022 Cholesterol in VLDL [Mass/Vol] 21 mg/dL 5-40 [facility] Work Phone: Serum or plasma creatinine m easurement (mass/volume)on 04-09-2022 Creatinine [Mass/Vol] 0.74 mg/dL 0.55-1.02 [facility] Work Phone: Comment on above: The validity of the calculated GFR & GFRAA in patients over 70 years has not been determined. Clinical correlation is essential. Serum or plasma low density lipoprotein (LDL) cholesterol measurement (mass/volume)on 04-09-2022 Cholesterol in LDL [Mass/Vol] 90 mg/dL 0-130 [facility] Work Phone: Serum or plasma urea nitroge n measurement (mass/volume)on 04-09-2022 Urea nitrogen [Mass/Vol] 8 mg/dL 7-18 [facility] Work Phone: Thin prep Papanicolaou smear with manual screeningon 04-09-2022 Thin prep Papanicolaou smear with manual screening 22 U/L 15-37 [facility] Work Phone: Thin prep Papanicolaou smear with manual screening 8 5-15 [facility] Work Phone: Absolute lymphocyte counton 03-21-2022 Lymphocytes Auto (Unsp spec) [#/Vol] 1.58 10*3/uL 0.83-4.51 [facility] Work Phone: Basophil percentageon 2021 Basophils/100 WBC (Bld) 0.2 % 0-1 [facility] Work Phone: Bilirubin [Mass/Vol] 1.60 mg/dL 0.20-1.00 [facility] Work Phone: Comment on above: For patients on eltr ombopag therapy, use of Dimension [place] TBIL is not recommended. Chloride [Moles/Vol] 108 mmol/L 98-107 [facility] Work Phone: Eosinophils/100 WBC (Bld) 0.0 % 0-5 [facility] Work Phone: Glucose [Mass/Vol] 181 mg/dL 74-[address] [facility] Work Phone: Comment on above: Fasting Glucose resu lt greater than or equal to 126 mg/dL suggests DIABETES MELLITUS per A.D.A. criteria. Neutrophils (Bld) [#/Vol] 8.6 10*3/uL 2.0-7.7 [facility] Work Phone: Neutrophils/100 WBC (Bld) 79.8 % 47-70 [facility] Work Phone: Potassium [Moles/Vol] 3.3 mmol/L 3.5-5.1 [facility] Work Phone: Protein [Mass/Vol] 6.4 g/dL 6.4-8.2 [facility] Work Phone: Sodium [Moles/Vol] 136 mmol/L 136-[address] [facility] Work Phone: WBC (Bld) [#/Vol] 10.8 10*3/uL 4.4-11.0 [facility] Work Phone: Blood erythrocytes count (nu mber/volume)on 03-21-2022 RBC (Bld) [#/Vol] 3.29 10*6/uL 4.2-5.4 [facility] Work Phone: [phone] Blood hemoglobin measurement (mass/volume)on 03-21-2022 Hemoglobin (Bld) [Mass/Vol] 10.1 g/dL 12.0-15.0 [facility] Work Phone: Blood lymphocytes/100 leukoc yteson 03-21-2022 Lymphocytes/100 WBC (Bld) 14.6 % 19-41 [facility] Work Phone: Blood monocytes/100 leukocyt eson 03-21-2022 Monocytes/100 WBC (Bld) 4.4 % 0-10 [facility] Work Phone: Blood platelet mean volumeon 03-21-2022 Platelet mean volume (Bld) [Entitic vol] 9.9 fL 6.2-12.0 [facility] Work Phone: Determination of erythrocyte mean corpuscular volume (MCV)on 03-21-2022 MCV (RBC) [Entitic vol] 89.1 fL 81-99 [facility] Work Phone: Glucose Glucometer (BldC) [M ass/Vol]on 03-21-2022 Glucose [Mass/Vol] 172 mg/dL 74-[address] [facility] Work Phone: Comment on above: MANAGEMENT OF PATIEN T CARE PER NURSING PROTOCOL Hematocrit Auto (Bld) [Volum e fraction]on 03-21-2022 Hematocrit (Bld) [Volume fraction] 29.3 % 37-47 [facility] Work Phone: Laboratory - Chemistry and C hemistry - challengeon 03-21-2022 ALP [Catalytic activity/Vol] 215 U/L 45-117 [facility] Work Phone: ALT [Catalytic activity/Vol] 82 U/L 13-56 [facility] Work Phone: CO2 [Moles/Vol] 22.0 mmol/L 21.0-32.0 [facility] Work Phone: Globulin (S) [Mass/Vol] 4.2 g/dL 2.2-4.2 [facility] Work Phone: Lipase [Catalytic activity/Vol] 147 U/L 73-393 [facility] Work Phone: Urea nitrogen/Creatinine [Mass ratio] 17.3 mg/mg 10-20 [facility] Work Phone: Laboratory - Hematology and Cell countson 03-21-2022 Erythrocyte distribution width (RBC) [Entitic vol] 43.1 fL 35.1-43.[address] [facility] Work Phone: Erythrocyte distribution width (RBC) [Ratio] 13.2 % 11.6-14.6 [facility] Work Phone: Immature granulocytes/100 WBC (Bld) 1.000 % 0.0-0.9 [facility] Work Phone: Comment on above: IG% - Immature Granu locytes (promyelocytes, myelocytes and metamyelocytes) > 1% indicates that a LEFT SHIFT is Present. MCH (RBC) [Entitic mass] 30.7 pg 27.0-32.0 [facility] Work Phone: Nucleated RBC/100 WBC (Bld) [Ratio] 0 % 0-5 [facility] Work Phone: MCHC Auto (RBC) [Mass/Vol]on 03-21-2022 MCHC (RBC) [Mass/Vol] 34.5 g/dL 32-36 [facility] Work Phone: No Panel Informationon 03-21 Estimated Creatinine Clearance Calc 37.24 ml/min [facility] Work Phone: Estimated GFR (MDRD) Amer 131 mL/min >60 [facility] Work Phone: Comment on above: GFR Calc Estimated GFR (MDRD) Non-Af Amer 108 mL/min >60 [facility] Work Phone: Comment on above: Non- GFR Calc Platelets bldon 03-21-2022 Platelets (Bld) [#/Vol] 187 10*3/uL 150-450 [facility] Work Phone: Serum or plasma albumin sabino urement (mass/volume)on 03-21-2022 Albumin [Mass/Vol] 2.2 g/dL 3.2-5.[address] [facility] Work Phone: Serum or plasma albumin/glob ulin mass ratioon 03-21-2022 Albumin/Globulin [Mass ratio] 0.5 {ratio} 0.9-2.4 [facility] Work Phone: Serum or plasma calcium sabino urement (mass/volume)on 03-21-2022 Calcium [Mass/Vol] 8.2 mg/dL 8.5-10.[address] [facility] Work Phone: Serum or plasma creatinine m easurement (mass/volume)on 03-21-2022 Creatinine [Mass/Vol] 0.58 mg/dL 0.55-1.02 [facility] Work Phone: Comment on above: The validity of the calculated GFR & GFRAA in patients over 70 years has not been determined. Clinical correlation is essential. Serum or plasma urea nitroge n measurement (mass/volume)on 03-21-2022 Urea nitrogen [Mass/Vol] 10 mg/dL 7-18 [facility] Work Phone: Thin prep Papanicolaou smear with manual screeningon 03-21-2022 Thin prep Papanicolaou smear with manual screening 65 U/L 15-37 [facility] Work Phone: Thin prep Papanicolaou smear with manual screening 6 5-15 [facility] Work Phone: [phone] Absolute lymphocyte counton 03-20-2022 Lymphocytes Auto (Unsp spec) [#/Vol] 1.85 10*3/uL 0.83-4.51 [facility] Work Phone: [phone] Basophil percentageon 2021 Basophil percentage >100 SEEN /hpf 0-5 [facility] Work Phone: Basophils/100 WBC (Bld) 0.2 % 0-1 [facility] Work Phone: Bilirubin [Mass/Vol] 3.90 mg/dL 0.20-1.00 [facility] Work Phone: Comment on above: For patients on eltr ombopag therapy, use of Dimension [place] TBIL is not recommended. Chloride [Moles/Vol] 102 mmol/L 98-107 [facility] Work Phone: Eosinophils/100 WBC (Bld) 0.6 % 0-5 [facility] Work Phone: Glucose [Mass/Vol] 192 mg/dL 74-[address] [facility] Work Phone: Comment on above: Fasting Glucose resu lt greater than or equal to 126 mg/dL suggests DIABETES MELLITUS per A.D.A. criteria. Neutrophils (Bld) [#/Vol] 16.2 10*3/uL 2.0-7.7 [facility] Work Phone: Neutrophils/100 WBC (Bld) 82.7 % 47-70 [facility] Work Phone: Potassium [Moles/Vol] 3.3 mmol/L 3.5-5.1 [facility] Work Phone: Comment on above: Slight Hemolysis, Re sult may be falsely increased. Protein [Mass/Vol] 7.3 g/dL 6.4-8.[address] [facility] Work Phone: Sodium [Moles/Vol] 133 mmol/L 136-[address] [facility] Work Phone: WBC (Bld) [#/Vol] 19.5 10*3/uL 4.4-11.0 [facility] Work Phone: Bilirubin Test strip Ql (U)o n 03-20-2022 Bilirubin Ql (U) 3 mg/dL Negative [facility] Work Phone: Comment on above: COLOR OF URINE MAY A FFECT DIPSTICK RESULTS. Blood erythrocytes count (nu mber/volume)on 03-20-2022 RBC (Bld) [#/Vol] 3.64 10*6/uL 4.2-5.4 [facility] Work Phone: Blood hemoglobin measurement (mass/volume)on 03-20-2022 Hemoglobin (Bld) [Mass/Vol] 11.6 g/dL 12.0-15.0 [facility] Work Phone: Blood lymphocytes/100 leukoc yteson 03-20-2022 Lymphocytes/100 WBC (Bld) 9.5 % 19-41 [facility] Work Phone: Blood monocytes/100 leukocyt eson 03-20-2022 Monocytes/100 WBC (Bld) 6.0 % 0-10 [facility] Work Phone: Blood platelet mean volumeon 03-20-2022 Platelet mean volume (Bld) [Entitic vol] 10.6 fL 6.2-12.0 [facility] Work Phone: Blood platelet morphology de termination (nominal result)on 03-20-2022 Platelet morphology finding Nom (Bld) CLUMPED [facility] Work Phone: Determination of erythrocyte mean corpuscular volume (MCV)on 03-20-2022 MCV (RBC) [Entitic vol] 88.7 fL 81-99 [facility] Work Phone: Direct bilirubinon 2 Bilirubin.direct [Mass/Vol] 2.33 mg/dL 0.00-0.30 [facility] Work Phone: Hematocrit Auto (Bld) [Volum e fraction]on 03-20-2022 Hematocrit (Bld) [Volume fraction] 32.3 % 37-47 [facility] Work Phone: Ketones Test strip Ql (U)on 03-20-2022 Ketones Ql (U) 15 mg/dl Negative [facility] Work Phone: Laboratory - Chemistry and C hemistry - challengeon 03-20-2022 ALP [Catalytic activity/Vol] 266 U/L 45-117 [facility] Work Phone: ALT [Catalytic activity/Vol] 108 U/L 13-56 [facility] Work Phone: CO2 [Moles/Vol] 22.0 mmol/L 21.0-32.0 [facility] Work Phone: Globulin (S) [Mass/Vol] 4.7 g/dL 2.2-4.2 [facility] Work Phone: Lipase [Catalytic activity/Vol] 14512 U/L 73-393 [facility] Work Phone: Magnesium [Mass/Vol] 2.0 mg/dL 1.6-2.6 [facility] Work Phone: Comment on above: Moderate Hemolysis, Result may be falsely increased. Urea nitrogen/Creatinine [Mass ratio] 30.4 mg/mg 10-20 [facility] Work Phone: Laboratory - Hematology and Cell countson 03-20-2022 Erythrocyte distribution width (RBC) [Entitic vol] 42.5 fL 35.1-43.[address] [facility] Work Phone: Erythrocyte distribution width (RBC) [Ratio] 13.2 % 11.6-14.6 [facility] Work Phone: Immature granulocytes/100 WBC (Bld) 1.000 % 0.0-0.9 [facility] Work Phone: Comment on above: IG% - Immature Granu locytes (promyelocytes, myelocytes and metamyelocytes) > 1% indicates that a LEFT SHIFT is Present. MCH (RBC) [Entitic mass] 31.9 pg 27.0-32.0 [facility] Work Phone: Nucleated RBC/100 WBC (Bld) [Ratio] 0 % 0-5 [facility] Work Phone: MCHC Auto (RBC) [Mass/Vol]on 03-20-2022 MCHC (RBC) [Mass/Vol] 35.9 g/dL 32-36 [facility] Work Phone: Mucus LM Ql (Urine sed)on Mucus Ql (Urine sed) 0 SEEN /hpf [facility] Work Phone: Nitrite Test strip Ql (U)on 03-20-2022 Nitrite Ql (U) Negative Negative [facility] Work Phone: No Panel Informationon 03-20 Estimated Creatinine Clearance Calc 37.24 ml/min [facility] Work Phone: Estimated GFR (MDRD) Amer 127 mL/min >60 [facility] Work Phone: Comment on above: GFR Calc Estimated GFR (MDRD) Non-Af Amer 105 mL/min >60 [facility] Work Phone: Comment on above: Non- GFR Calc Thyroid Stimulating Hormone (TSH) 7.14 uIU/mL 0.358-3.74 [facility] Work Phone: Platelets bldon 03-20-2022 Platelets (Bld) [#/Vol] 227 10*3/uL 150-450 [facility] Work Phone: Protein Test strip Ql (U)on 03-20-2022 Protein Ql (U) 100 mg/dl Negative [facility] Work Phone: Serum or plasma albumin sabino urement (mass/volume)on 03-20-2022 Albumin [Mass/Vol] 2.6 g/dL 3.2-5.[address] [facility] Work Phone: Serum or plasma calcium sabino urement (mass/volume)on 03-20-2022 Calcium [Mass/Vol] 9.0 mg/dL 8.5-10.[address] [facility] Work Phone: Serum or plasma creatinine m easurement (mass/volume)on 03-20-2022 Creatinine [Mass/Vol] 0.59 mg/dL 0.55-1.02 [facility] Work Phone: Comment on above: The validity of the calculated GFR & GFRAA in patients over 70 years has not been determined. Clinical correlation is essential. Serum or plasma urea nitroge n measurement (mass/volume)on 03-20-2022 Urea nitrogen [Mass/Vol] 18 mg/dL 7-18 [facility] Work Phone: Squamous epithelial cells de tection in urine sediment by light microscopyon 03-20-2022 Epithelial cells.squamous LM Ql (Urine sed) 0-5 SEEN /hpf 5-10 [facility] Work Phone: Thin prep Papanicolaou smear with manual screeningon 03-20-2022 Thin prep Papanicolaou smear with manual screening 133 U/L 15-37 [facility] Work Phone: Comment on above: Slight Hemolysis, Re sult may be falsely increased. Thin prep Papanicolaou smear with manual screening 9 5-15 [facility] Work Phone: Urine blood detectionon 02-21 RBC Ql (U) 250 /ul Negative [facility] Work Phone: RBC Ql (U) 5-10 SEEN /hpf 0-5 [facility] Work Phone: Urine clarityon 03-20-2022 Clarity (U) Cloudy Clear [facility] Work Phone: Urine color determinationon 03-20-2022 Color (U) Yellow Yellow [facility] Work Phone: Urine glucose detectionon Glucose Ql (U) 50 mg/dl Normal [facility] Work Phone: Urine leukocyte esterase det ection by dipstickon 03-20-2022 Leukocyte esterase Test strip Ql (U) 500 /ul Negative [facility] Work Phone: Urine pHon 03-20-2022 pH (U) 6.0 [pH] 5.0 - 8.0 [facility] Work Phone: Urine sediment bacteria coun t by microscopy (number/high power field)on 03-20-2022 Bacteria LM.HPF (Urine sed) [#/Area] 4 /[HPF] None Seen [facility] Work Phone: Urine specific gravity measu rementon 03-20-2022 Specific gravity (U) [Rel density] 1.015 1.002-1.030 [facility] Work Phone: Urobilinogen Auto test strip Ql (U)on 03-20-2022 Urobilinogen Ql (U) 12 mg/dl Normal [facility] Work Phone: Whole blood hemoglobin A1c/t otal hemoglobin ratio (mass fraction)on 03-20-2022 HbA1c (Bld) [Mass fraction] 6.7 % 3.8-5.6 [facility] Work Phone: Comment on above: Normal < 5.7 % Predi abetic 5.7 - 6.4 % Diabetic >or= 6.5 % Please note range changes. Absolute lymphocyte counton 12-22-2021 Lymphocytes Auto (Unsp spec) [#/Vol] 2.26 10*3/uL 0.83-4.51 [facility] Work Phone: Basophil percentageon 2021 Basophils/100 WBC (Bld) 0.5 % 0-1 [facility] Work Phone: Eosinophils/100 WBC (Bld) 2.7 % 0-5 [facility] Work Phone: Neutrophils (Bld) [#/Vol] 2.5 10*3/uL 2.0-7.7 [facility] Work Phone: Neutrophils/100 WBC (Bld) 46.1 % 47-70 [facility] Work Phone: WBC (Bld) [#/Vol] 5.5 10*3/uL 4.4-11.[address] [facility] Work Phone: Blood erythrocytes count (nu mber/volume)on 12-22-2021 RBC (Bld) [#/Vol] 3.32 10*6/uL 4.2-5.[address] [facility] Work Phone: Blood hemoglobin measurement (mass/volume)on 12-22-2021 Hemoglobin (Bld) [Mass/Vol] 10.4 g/dL 12.0-15.0 [facility] Work Phone: Blood lymphocytes/100 leukoc yteson 12-22-2021 Lymphocytes/100 WBC (Bld) 41.2 % 19-41 [facility] Work Phone: Blood monocytes/100 leukocyt eson 12-22-2021 Monocytes/100 WBC (Bld) 9.1 % 0-10 [facility] Work Phone: Blood platelet mean volumeon 12-22-2021 Platelet mean volume (Bld) [Entitic vol] 9.6 fL 6.2-12.0 [facility] Work Phone: Determination of erythrocyte mean corpuscular volume (MCV)on 12-22-2021 MCV (RBC) [Entitic vol] 90.7 fL 81-99 [facility] Work Phone: Hematocrit Auto (Bld) [Volum e fraction]on 12-22-2021 Hematocrit (Bld) [Volume fraction] 30.1 % 37-47 [facility] Work Phone: Hemoglobin in reticulocytes (mass per reticulocyte)on 12-22-2021 Hemoglobin (Reticulocytes) [Entitic mass] 34.0 pg 30-35 [facility] Work Phone: Iron measurement (mass/mass) on 12-22-2021 Iron (Unsp spec) [Mass/Mass] 56 ug/dL 50-170 [facility] Work Phone: Laboratory - Chemistry and C hemistry - challengeon 12-22-2021 Cobalamin (Vitamin B12) [Mass/Vol] 1270 pg/mL 211-911 [facility] Work Phone: Laboratory - Hematology and Cell countson 12-22-2021 Erythrocyte distribution width (RBC) [Entitic vol] 44.7 fL 35.1-43.[address] [facility] Work Phone: Erythrocyte distribution width (RBC) [Ratio] 13.5 % 11.6-14.6 [facility] Work Phone: Immature granulocytes/100 WBC (Bld) 0.400 % 0.0-0.9 [facility] Work Phone: Comment on above: IG% - Immature Granu locytes (promyelocytes, myelocytes and metamyelocytes) > 1% indicates that a LEFT SHIFT is Present. MCH (RBC) [Entitic mass] 31.3 pg 27.0-32.0 [facility] Work Phone: Nucleated RBC/100 WBC (Bld) [Ratio] 0 % 0-5 [facility] Work Phone: MCHC Auto (RBC) [Mass/Vol]on 12-22-2021 MCHC (RBC) [Mass/Vol] 34.6 g/dL 32-36 [facility] Work Phone: No Panel Informationon 12-22 Immature Reticulocyte Fraction 3.20 % 3.00-15.90 [facility] Work Phone: Reticulocyte Count 1.42 % 0.5-1.[address] [facility] Work Phone: Total Iron Binding Capacity 288 ug/dL 250-450 [facility] Work Phone: Platelets bldon 12-22-2021 Platelets (Bld) [#/Vol] 217 10*3/uL 150-450 [facility] Work Phone: Serum or plasma ferritin uzma surement (mass/volume)on 12-22-2021 Ferritin [Mass/Vol] 20 ng/mL 8-252 [facility] Work Phone: Serum or plasma folate measu rement (mass/volume)on 12-22-2021 Folate [Mass/Vol] 16.20 ng/mL 3.1-55.[address] [facility] Work Phone: [phone] Serum or plasma iron saturat ion measurement (mass fraction)on 12-22-2021 Iron saturation [Mass fraction] 19.4 % 15.0-55.0 [facility] Work Phone: Absolute lymphocyte counton 12-15-2021 Lymphocytes Auto (Unsp spec) [#/Vol] 2.22 10*3/uL 0.83-4.51 [facility] Work Phone: Basophil percentageon 2021 Basophils/100 WBC (Bld) 0.6 % 0-1 [facility] Work Phone: Bilirubin [Mass/Vol] 1.10 mg/dL 0.20-1.00 [facility] Work Phone: Comment on above: For patients on eltr ombopag therapy, use of Dimension [place] TBIL is not recommended. Chloride [Moles/Vol] 109 mmol/L 98-107 [facility] Work Phone: Cholesterol [Mass/Vol] 160 mg/dL <200 [facility] Work Phone: Comment on above: <200 mg/dL Desirable 200-240 mg/dL Borderline >240 mg/dL High Risk Eosinophils/100 WBC (Bld) 2.4 % 0-5 [facility] Work Phone: Glucose [Mass/Vol] 248 mg/dL 74-[address] [facility] Work Phone: [phone] Comment on above: Glucose result great er than or equal to 200 mg/dLsuggests DIABETES MELLITUS per A.D.A. criteria. Neutrophils (Bld) [#/Vol] 2.1 10*3/uL 2.0-7.7 [facility] Work Phone: Neutrophils/100 WBC (Bld) 41.5 % 47-70 [facility] Work Phone: Potassium [Moles/Vol] 3.8 mmol/L 3.5-5.1 [facility] Work Phone: Protein [Mass/Vol] 7.1 g/dL 6.4-8.[address] [facility] Work Phone: Sodium [Moles/Vol] 140 mmol/L 136-[address] [facility] Work Phone: Triglyceride [Mass/Vol] 67 mg/dL <199 [facility] Work Phone: Comment on above: The drugs N-Acetylcy steine and Metamizole may falsely depress this assay.Serum Triglycerides Reference Interval Normal <150 mg/dL Borderline high 150 - 199 mg/dL High 200 - 499 mg/dL Very High > or = 500 mg/dL WBC (Bld) [#/Vol] 5.0 10*3/uL 4.4-11.[address] [facility] Work Phone: Blood erythrocytes count (nu mber/volume)on 12-15-2021 RBC (Bld) [#/Vol] 3.18 10*6/uL 4.2-5.4 [facility] Work Phone: Blood hemoglobin measurement (mass/volume)on 12-15-2021 Hemoglobin (Bld) [Mass/Vol] 9.9 g/dL 12.0-15.0 [facility] Work Phone: Blood lymphocytes/100 leukoc yteson 12-15-2021 Lymphocytes/100 WBC (Bld) 44.8 % 19-41 [facility] Work Phone: Blood monocytes/100 leukocyt eson 12-15-2021 Monocytes/100 WBC (Bld) 10.5 % 0-10 [facility] Work Phone: Blood platelet mean volumeon 12-15-2021 Platelet mean volume (Bld) [Entitic vol] 10.1 fL 6.2-12.0 [facility] Work Phone: Determination of erythrocyte mean corpuscular volume (MCV)on 12-15-2021 MCV (RBC) [Entitic vol] 90.6 fL 81-99 [facility] Work Phone: Hematocrit Auto (Bld) [Volum e fraction]on 12-15-2021 Hematocrit (Bld) [Volume fraction] 28.8 % 37-47 [facility] Work Phone: Laboratory - Chemistry and C hemistry - challengeon 12-15-2021 ALP [Catalytic activity/Vol] 98 U/L 45-117 [facility] Work Phone: ALT [Catalytic activity/Vol] 27 U/L 13-56 [facility] Work Phone: CO2 [Moles/Vol] 23.0 mmol/L 21.0-32.0 [facility] Work Phone: Globulin (S) [Mass/Vol] 4.1 g/dL 2.2-4.2 [facility] Work Phone: Urea nitrogen/Creatinine [Mass ratio] 14.4 mg/mg 10-20 [facility] Work Phone: Laboratory - Hematology and Cell countson 12-15-2021 Erythrocyte distribution width (RBC) [Entitic vol] 46.1 fL 35.1-43.[address] [facility] Work Phone: Erythrocyte distribution width (RBC) [Ratio] 13.8 % 11.6-14.6 [facility] Work Phone: Immature granulocytes/100 WBC (Bld) 0.200 % 0.0-0.9 [facility] Work Phone: Comment on above: IG% - Immature Granu locytes (promyelocytes, myelocytes and metamyelocytes) > 1% indicates that a LEFT SHIFT is Present. MCH (RBC) [Entitic mass] 31.1 pg 27.0-32.0 [facility] Work Phone: Nucleated RBC/100 WBC (Bld) [Ratio] 0 % 0-5 [facility] Work Phone: MCHC Auto (RBC) [Mass/Vol]on 12-15-2021 MCHC (RBC) [Mass/Vol] 34.4 g/dL 32-36 [facility] Work Phone: No Panel Informationon 12-15 Estimated GFR (MDRD) Amer 95 mL/min >60 [facility] Work Phone: Comment on above: GFR Calc Estimated GFR (MDRD) Non-Af Amer 79 mL/min >60 [facility] Work Phone: Comment on above: Non- GFR Calc Thyroid Stimulating Hormone (TSH) 4.10 uIU/mL 0.358-3.74 [facility] Work Phone: Vitamin D 25-Hydroxy 27.0 ng/mL [facility] Work Phone: Comment on above: Vitamin D 25(OH) Sta tus Range Deficiency <20 ng/mL (50nmol/L) Insufficiency 20 - 30 ng/mL (50 - 75 nmol/L) Sufficiency 30 - 100 ng/mL (75 - 250 nmol/L) Toxicity >100 ng/mL (>250 nmol/L) Platelets bldon 12-15-2021 Platelets (Bld) [#/Vol] 199 10*3/uL 150-450 [facility] Work Phone: Serum or plasma albumin sabino urement (mass/volume)on 12-15-2021 Albumin [Mass/Vol] 3.0 g/dL 3.2-5.[address] [facility] Work Phone: Serum or plasma albumin/glob ulin mass ratioon 12-15-2021 Albumin/Globulin [Mass ratio] 0.7 {ratio} 0.9-2.4 [facility] Work Phone: Serum or plasma calcium sabino urement (mass/volume)on 12-15-2021 Calcium [Mass/Vol] 8.3 mg/dL 8.5-10.[address] [facility] Work Phone: Serum or plasma cholesterol in HDL measurement (mass/volume)on 12-15-2021 Cholesterol in HDL [Mass/Vol] 52 mg/dL >40 [facility] Work Phone: Comment on above: The drugs N-Acetylcy steine and Metamizole may falsely depress this assay. Reference Range HDL <40 mg/dL Low HDL Cholesterol HDL >or= 60 mg/dL High HDL Cholesterol Serum or plasma cholesterol in VLDL measurement (mass/volume)on 12-15-2021 Cholesterol in VLDL [Mass/Vol] 13 mg/dL 5-40 [facility] Work Phone: Serum or plasma creatinine m easurement (mass/volume)on 12-15-2021 Creatinine [Mass/Vol] 0.76 mg/dL 0.55-1.02 [facility] Work Phone: Comment on above: The validity of the calculated GFR & GFRAA in patients over 70 years has not been determined. Clinical correlation is essential. Serum or plasma low density lipoprotein (LDL) cholesterol measurement (mass/volume)on 12-15-2021 Cholesterol in LDL [Mass/Vol] 95 mg/dL 0-130 [facility] Work Phone: Serum or plasma urea nitroge n measurement (mass/volume)on 12-15-2021 Urea nitrogen [Mass/Vol] 11 mg/dL 7-18 [facility] Work Phone: Thin prep Papanicolaou smear with manual screeningon 12-15-2021 Thin prep Papanicolaou smear with manual screening 30 U/L 15-37 [facility] Work Phone: Thin prep Papanicolaou smear with manual screening 8 5-15 [facility] Work Phone: Basophil percentageon 2021 Chloride [Moles/Vol] 102 mmol/L 98-107 [facility] Work Phone: Glucose [Mass/Vol] 199 mg/dL 74-[address] [facility] Work Phone: Comment on above: Fasting Glucose resu lt greater than or equal to 126 mg/dL suggests DIABETES MELLITUS per A.D.A. criteria. Potassium [Moles/Vol] 4.6 mmol/L 3.5-5.1 [facility] Work Phone: Sodium [Moles/Vol] 132 mmol/L 136-[address] [facility] Work Phone: Laboratory - Chemistry and C hemistry - challengeon 09-24-2021 CO2 [Moles/Vol] 24.0 mmol/L 21.0-32.0 [facility] Work Phone: Urea nitrogen/Creatinine [Mass ratio] 16.5 mg/mg 10-20 [facility] Work Phone: No Panel Informationon 09-24 Estimated GFR (MDRD) Amer 111 mL/min >60 [facility] Work Phone: Comment on above: GFR Calc Estimated GFR (MDRD) Non-Af Amer 92 mL/min >60 [facility] Work Phone: Comment on above: Non- GFR Calc Serum or plasma calcium sabino urement (mass/volume)on 09-24-2021 Calcium [Mass/Vol] 8.9 mg/dL 8.5-10.[address] [facility] Work Phone: Serum or plasma creatinine m easurement (mass/volume)on 09-24-2021 Creatinine [Mass/Vol] 0.67 mg/dL 0.55-1.02 [facility] Work Phone: Comment on above: The validity of the calculated GFR & GFRAA in patients over 70 years has not been determined. Clinical correlation is essential. Serum or plasma urea nitroge n measurement (mass/volume)on 09-24-2021 Urea nitrogen [Mass/Vol] 11 mg/dL 7-18 [facility] Work Phone: Thin prep Papanicolaou smear with manual screeningon 09-24-2021 Thin prep Papanicolaou smear with manual screening 6 5-15 [facility] Work Phone: Absolute lymphocyte counton 09-15-2021 Lymphocytes Auto (Unsp spec) [#/Vol] 3.60 10*3/uL 0.83-4.51 [facility] Work Phone: Basophil percentageon 2021 Basophils/100 WBC (Bld) 0.6 % 0-1 [facility] Work Phone: Bilirubin [Mass/Vol] 1.40 mg/dL 0.20-1.00 [facility] Work Phone: Comment on above: For patients on eltr ombopag therapy, use of Dimension [place] TBIL is not recommended. Chloride [Moles/Vol] 103 mmol/L 98-107 [facility] Work Phone: Eosinophils/100 WBC (Bld) 1.6 % 0-5 [facility] Work Phone: Glucose [Mass/Vol] 315 mg/dL 74-[address] [facility] Work Phone: Comment on above: Glucose result great er than or equal to 200 mg/dLsuggests DIABETES MELLITUS per A.D.A. criteria. Neutrophils (Bld) [#/Vol] 3.7 10*3/uL 2.0-7.7 [facility] Work Phone: Neutrophils/100 WBC (Bld) 45.5 % 47-70 [facility] Work Phone: Potassium [Moles/Vol] 3.3 mmol/L 3.5-5.1 [facility] Work Phone: Protein [Mass/Vol] 8.0 g/dL 6.4-8.[facility]: Sodium [Moles/Vol] 135 mmol/L 136-[address] [facility] Work Phone: [phone] WBC (Bld) [#/Vol] 8.1 10*3/uL 4.4-11.[address] [facility] Work Phone: Blood erythrocytes count (nu mber/volume)on 09-15-2021 RBC (Bld) [#/Vol] 3.86 10*6/uL 4.2-5.[address] [facility] Work Phone: Blood hemoglobin measurement (mass/volume)on 09-15-2021 Hemoglobin (Bld) [Mass/Vol] 12.2 g/dL 12.0-15.0 [facility] Work Phone: Blood lymphocytes/100 leukoc yteson 09-15-2021 Lymphocytes/100 WBC (Bld) 44.3 % 19-41 [facility] Work Phone: Blood monocytes/100 leukocyt eson 09-15-2021 Monocytes/100 WBC (Bld) 7.8 % 0-10 [facility] Work Phone: Blood platelet mean volumeon 09-15-2021 Platelet mean volume (Bld) [Entitic vol] 9.9 fL 6.2-12.0 [facility] Work Phone: Determination of erythrocyte mean corpuscular volume (MCV)on 09-15-2021 MCV (RBC) [Entitic vol] 87.8 fL 81-99 [facility] Work Phone: Hematocrit Auto (Bld) [Volum e fraction]on 09-15-2021 Hematocrit (Bld) [Volume fraction] 33.9 % 37-47 [facility] Work Phone: Laboratory - Chemistry and C hemistry - challengeon 09-15-2021 ALP [Catalytic activity/Vol] 131 U/L 45-117 [facility] Work Phone: ALT [Catalytic activity/Vol] 23 U/L 13-56 [facility] Work Phone: CO2 [Moles/Vol] 24.0 mmol/L 21.0-32.0 [facility] Work Phone: Globulin (S) [Mass/Vol] 4.9 g/dL 2.2-4.2 [facility] Work Phone: Urea nitrogen/Creatinine [Mass ratio] 15.6 mg/mg 10-20 [facility] Work Phone: Laboratory - Hematology and Cell countson 09-15-2021 Erythrocyte distribution width (RBC) [Entitic vol] 43.9 fL 35.1-43.[address] [facility] Work Phone: Erythrocyte distribution width (RBC) [Ratio] 13.8 % 11.6-14.6 [facility] Work Phone: Immature granulocytes/100 WBC (Bld) 0.200 % 0.0-0.9 [facility] Work Phone: Comment on above: IG% - Immature Granu locytes (promyelocytes, myelocytes and metamyelocytes) > 1% indicates that a LEFT SHIFT is Present. MCH (RBC) [Entitic mass] 31.6 pg 27.0-32.0 [facility] Work Phone: Nucleated RBC/100 WBC (Bld) [Ratio] 0 % 0-5 [facility] Work Phone: MCHC Auto (RBC) [Mass/Vol]on 09-15-2021 MCHC (RBC) [Mass/Vol] 36.0 g/dL 32-36 [facility] Work Phone: No Panel Informationon 09-15 Estimated GFR (MDRD) Amer 104 mL/min >60 [facility] Work Phone: Comment on above: GFR Calc Estimated GFR (MDRD) Non-Af Amer 86 mL/min >60 [facility] Work Phone: Comment on above: Non- GFR Calc Thyroid Stimulating Hormone (TSH) 6.85 uIU/mL 0.358-3.74 [facility] Work Phone: Vitamin D 25-Hydroxy 29.7 ng/mL [facility] Work Phone: Comment on above: Vitamin D 25(OH) Sta tus Range Deficiency <20 ng/mL (50nmol/L) Insufficiency 20 - 30 ng/mL (50 - 75 nmol/L) Sufficiency 30 - 100 ng/mL (75 - 250 nmol/L) Toxicity >100 ng/mL (>250 nmol/L) Platelets bldon 09-15-2021 Platelets (Bld) [#/Vol] 220 10*3/uL 150-450 [facility] Work Phone: Serum or plasma albumin sabino urement (mass/volume)on 09-15-2021 Albumin [Mass/Vol] 3.1 g/dL 3.2-5.[address] [facility] Work Phone: Serum or plasma albumin/glob ulin mass ratioon 09-15-2021 Albumin/Globulin [Mass ratio] 0.6 {ratio} 0.9-2.4 [facility] Work Phone: Serum or plasma calcium sabino urement (mass/volume)on 09-15-2021 Calcium [Mass/Vol] 8.9 mg/dL 8.5-10.[address] [facility] Work Phone: Serum or plasma creatinine m easurement (mass/volume)on 09-15-2021 Creatinine [Mass/Vol] 0.71 mg/dL 0.55-1.02 [facility] Work Phone: Comment on above: The validity of the calculated GFR & GFRAA in patients over 70 years has not been determined. Clinical correlation is essential. Serum or plasma urea nitroge n measurement (mass/volume)on 09-15-2021 Urea nitrogen [Mass/Vol] 11 mg/dL 7-18 [facility] Work Phone: Thin prep Papanicolaou smear with manual screeningon 09-15-2021 Thin prep Papanicolaou smear with manual screening 26 U/L 15-37 [facility] Work Phone: Thin prep Papanicolaou smear with manual screening 8 5-15 [facility] Work Phone: NM Myocardial Perf Imaging M ulti Specton 02-15-2017 NM Myocardial Perf Imaging Multi Spect Patient Name: HEATHER LANDRY Nuc Med Exam Date/Time 02/15/2017 10:12:43 EDT Exam NM Myocardial Perf Imaging Multi Spect Ordering Physician MD TRENA, JOE Robert Accession Number [id number] CPT4 Codes 47608 (), 94258 (NM EKG TREADMILL - NUCLEAR) Reason For Exam CHEST PAIN, ACUTE CORONARY SYNDROME SUSPECT Report *Nuclear Cardiology* [place] [id number] Fax #: [phone] --- Nuclear Stress Myocardial Perfusion Study Regadenoson Protocol Gated SPECT Patient: Heather Landry Height: (61 in) Weight: (141.9 lb) : 1945 Age: 71 Gender: F Study Date: 02/15/2017 Accession#: Patient Room #: *ORDERING PHYSICIAN: * Joe Hein *SUPERVISING PHYSICIAN: * Raymundo Murphy, *RN: * Damaris Bright MD *RADIOLOGIST: * Jazmin Diego MD *NUCLEAR TECH: * Deepti Sanchez *READING PHYSICIAN: * Ash Orourke MD, [facility] --- Indications: Chest pain. --- Summary: 1. No evidence of stress-induced ischemia following pharmacologic stress. 2. Stress ECG conclusions: The stress ECG is normal. Radiologist Confirmation: The SPECT perfusion imaging portion of the study was interpreted and reported by Jazmin Diego MD --- History: Chest Pain/ discomfort without exertion. Near syncope Hypertension treated. Diabetic non insulin dependent. Medications: Aspirin. Atorvastatin (Lipitor). Lisinopril (Zestril). Januvia. Allergies: Penicillin allergy. Dyslipidemia. Patient is NPO per policy. No caffeine per policy. Hemoglobin, potassium and/or troponin x2 are within policy guidelines. --- Study data: Bra or chest circumference is 36 in. The patient's lungs are clear to auscultation. Heart auscultation by RN revealed a regular rate and rhythm. Pre pain assessment is 0 out of 10. Post pain assessment is 0 out of 10. Patient status: Observation. Gated SPECT; rest/stress. One-day Sestamibi. Consent: The procedure was reviewed with the patient and the patient voices understanding. Study completion: The patient tolerated the procedure well and was discharged from the lab. There were no complications. Discharge: Discharge instruction given. The patient was transferred to a regular nursing floorvia cart. The patient was notified of these results. --- Procedure data: Initial setup. The patient was brought to the laboratory. A baseline ECG was recorded. Surface ECG leads and blood pressure measurements were monitored. Regadenoson stress test. Stress testing was performed, with regadenoson by intravenous bolus at one minute into the protocol, for a total dose of 0.4mgover 10.00 sec, followed by a 5 ml saline flush. A pharmacologic approach was used because the patient was physically unable to exercise. --- Baseline ECG: Normal sinus rhythm. Stress protocol: + +--+- +-------- + !Stage !HR!BP (mmHg) !Symptoms! + +--+- +-------- + !Rest !68!103/43 (63)!None ! + +--+- +-------- + !Peak stress !78!111/52 (72)!--------! + +--+- +-------- + !Recovery !84!120/52 (75)!--------! + +--+- +-------- + !Late recovery!82!110/44 (66)!--------! + +--+- +-------- + Stress results: Peak heart rate during stress was 84 bpm. (56% of maximal predicted heart rate). The maximal predicted heart rate was 151 bpm. The rate-pressure product for the peak heart rate and blood pressure was 18020 mm Hg/min. The patient experienced no chest pain during stress. Stress ECG: There are no stress arrhythmias or conduction abnormalities. The stress ECG is normal. No stress induced ECG changes suggestive of ischemia. Isotope administration: + +--- +---- + !Stage !Rest !Stress ! + +--- +---- + !Agent !Tc[99m]-sestamibi! Tc[99m]-sestamibi! + +--- +---- + !Dose !9 mCi !32.3 mCi ! + +--- +---- + !Date !02/15/2017 !02/15/2017 ! + +--- +---- + !Injection time!07:30 AM !08:45 AM ! + +--- +---- + !Route !IV !IV ! + +--- +---- + !Injected by !PC !Pc ! + +--- +---- + Image properties: Imaging information: The study was gated. The image quality was good. Rotating projection images reveal mild diaphragmatic attenuation. Rest: Left ventricular myocardial perfusion is normal in all segments. Perfusion score: 0. Stress: Left ventricular myocardial perfusion is normal in all segments. Perfusion score: 0. Gated SPECT: Left ventricular function appears visually normal. Calculated left ventricular ejection fraction is overestimated due to small cardiac size, however is at least 65%. Electronically signed by Ash Orourke MD, FACC 02/15/2017 16:09 Final Dictated: 02/15/2017 4:09 pm Dictating Physician: MD. BRYCE, ASH BEEBE Signed Date and Time: 02/15/2017 4:09 pm Signed by: MD. BRYCE, ASH BEEBE [facility] Rad Signatureon 7 [facility] Patient Name: HEATHER LANDRY Nuc Med Exam Date/Time 02/15/2017 08:18:01 EDT Exam [facility] Ordering Physician HODAN, [facility] Accession Number [id number] Reason For Exam Yifan perera Report --- Indications: Chest pain. --- Summary: 1. No evidence of stress-induced ischemia following pharmacologic stress. 2. Stress ECG conclusions: The stress ECG is normal. Radiologist Confirmation: The SPECT perfusion imaging portion of the study was interpreted and reported by Jazmin Diego MD --- History: Chest Pain/ discomfort without exertion. Near syncope Hypertension treated. Diabetic non insulin dependent. Medications: Aspirin. Atorvastatin (Lipitor). Lisinopril (Zestril). Januvia. Allergies: Penicillin allergy. Dyslipidemia. Patient is NPO per policy. No caffeine per policy. Hemoglobin, potassium and/or troponin x2 are within policy guidelines. --- Study data: Bra or chest circumference is 36 in. The patient's lungs are clear to auscultation. Heart auscultation by RN revealed a regular rate and rhythm. Pre pain assessment is 0 out of 10. Post pain assessment is 0 out of 10. Patient status: Observation. Gated SPECT; rest/stress. One-day Sestamibi. Consent: The procedure was reviewed with the patient and the patient voices understanding. Study completion: The patient tolerated the procedure well and was discharged from the lab. There were no complications. Discharge: Discharge instruction given. The patient was transferred to a regular nursing floorvia cart. The patient was notified of these results. --- Procedure data: Initial setup. The patient was brought to the laboratory. A baseline ECG was recorded. Surface ECG leads and blood pressure measurements were monitored. Regadenoson stress test. Stress testing was performed, with regadenoson by intravenous bolus at one minute into the protocol, for a total dose of 0.4mgover 10.00 sec, followed by a 5 ml saline flush. A pharmacologic approach was used because the patient was physically unable to exercise. --- Baseline ECG: Normal sinus rhythm. Stress protocol: + +--+- +-------- + !Stage !HR!BP (mmHg) !Symptoms! + +--+- +-------- + !Rest !68!103/43 (63)!None ! + +--+- +-------- + !Peak stress !78!111/52 (72)!--------! + +--+- +-------- + !Recovery !84!120/52 (75)!--------! + +--+- +-------- + !Late recovery!82!110/44 (66)!--------! + +--+- +-------- + Stress results: Peak heart rate during stress was 84 bpm. (56% of maximal predicted heart rate). The maximal predicted heart rate was 151 bpm. The rate-pressure product for the peak heart rate and blood pressure was 55466 mm Hg/min. The patient experienced no chest pain during stress. Stress ECG: There are no stress arrhythmias or conduction abnormalities. The stress ECG is normal. No stress induced ECG changes suggestive of ischemia. Isotope administration: + +--- +---- + !Stage !Rest !Stress ! + +--- +---- + !Agent !Tc[99m]-sestamibi! Tc[99m]-sestamibi! + +--- +---- + !Dose !9 mCi !32.3 mCi ! + +--- +---- + !Date !02/15/2017 !02/15/2017 ! + +--- +---- + !Injection time!07:30 AM !08:45 AM ! + +--- +---- + !Route !IV !IV ! + +--- +---- + !Injected by !PC !Pc ! + +--- +---- + Image properties: Imaging information: The study was gated. The image quality was good. Rotating projection images reveal mild diaphragmatic attenuation. Rest: Left ventricular myocardial perfusion is normal in all segments. Perfusion score: 0. Stress: Left ventricular myocardial perfusion is normal in all segments. Perfusion score: 0. Gated SPECT: Left ventricular function appears visually normal. Calculated left ventricular ejection fraction is overestimated due to small cardiac size, however is at least 65%. Final Signed Date and Time: 02/03/2018 12:07 pm Signed by: JAZMIN DIEGO Transcribed Date and Time: 02/03/2018 9:58 Transcribed By:ROSALINDA [facility] Basic Metabolic Panelon 01-22 Anion gap 12 mmol/L Normal [facility] Comment on above: Performed By: #### H EMOG, BMP3, TROPN, LIPD2, TSH4, HA1C2 ####[place] [address] Creatinine 0.62 mg/dL Normal 0.55-1.40 [facility] Comment on above: Performed By: #### H EMOG, BMP3, TROPN, LIPD2, TSH4, HA1C2 ####[place] [address] eGFR (black) mL/min/{1.73_m2} Normal >60 [facility] Comment on above: Performed By: #### H EMOG, BMP3, TROPN, LIPD2, TSH4, HA1C2 ####[place] [address] eGFR (non-black) mL/min/{1.73_m2} Normal >60 [facility] Comment on above: Result Comment: Sour ce- MDRD equation with creatinine calibration to IDMS(NKDEP)eGFR not recommended for drug dose adjustment Performed By: #### H EMOG, BMP3, TROPN, LIPD2, TSH4, HA1C2 ####[place] [address] CO2 20 mmol/L Low 21-32 [facility] Comment on above: Performed By: #### H EMOG, BMP3, TROPN, LIPD2, TSH4, HA1C2 ####[place] [address] Glucose mass conc 201 mg/dL High 70-100 [facility] Comment on above: Performed By: #### H EMOG, BMP3, TROPN, LIPD2, TSH4, HA1C2 ####[place] [address] Urea nitrogen 14 mg/dL Normal 7-25 [facility] Comment on above: Performed By: #### H EMOG, BMP3, TROPN, LIPD2, TSH4, HA1C2 ####[address] [address] Calcium 9.2 mg/dL Normal 8.2-10.1 [facility] Comment on above: Performed By: #### H EMOG, BMP3, TROPN, LIPD2, TSH4, HA1C2 ####[address] [address] Chloride 104 mmol/L Normal 98-109 [facility] Comment on above: Performed By: #### H EMOG, BMP3, TROPN, LIPD2, TSH4, HA1C2 ####[address] [address] Potassium molar conc 3.6 mmol/L Normal 3.5-5.1 [facility] Comment on above: Performed By: #### H EMOG, BMP3, TROPN, LIPD2, TSH4, HA1C2 ####[address] [address] Sodium 136 mmol/L Normal 135-145 [facility] Comment on above: Performed By: #### H EMOG, BMP3, TROPN, LIPD2, TSH4, HA1C2 ####[address] [address] Hemoglobin A1Con 02-14-2017 Glucose mass conc 143 mg/dL Normal [facility] Comment on above: Performed By: #### H EMOG, BMP3, TROPN, LIPD2, TSH4, HA1C2 ####[address] [address] Hemoglobin A1c/Hemoglobin.total mass fraction (Bld) 6.6 % High 4.0-5.6 [facility] Comment on above: Result Comment: --Hg bA1C levels may not be accurate in patients who haverenal disease, received recent blood transfusions, are anemic,or who have dyshemoglobinemia. Performed By: #### H EMOG, BMP3, TROPN, LIPD2, TSH4, HA1C2 ####[address] [address] Hemogramon 02-14-2017 Erythrocyte distribution width Auto Ratio (RBC) 14.6 % High 11.5-14.5 [facility] Comment on above: Performed By: #### H EMOG, BMP3, TROPN, LIPD2, TSH4, HA1C2 ####[address] [address] Erythrocytes (RBC) 3.71 10*6/uL Low 3.80-5.20 [facility] Comment on above: Performed By: #### H EMOG, BMP3, TROPN, LIPD2, TSH4, HA1C2 ####[address] [address] Hematocrit (HCT) 33.2 % Low 35.0-47.0 [facility] Comment on above: Performed By: #### H EMOG, BMP3, TROPN, LIPD2, TSH4, HA1C2 ####[place] [address] Hemoglobin mass conc (Bld) 11.4 g/dL Low 11.7-16.0 [facility] Comment on above: Performed By: #### H EMOG, BMP3, TROPN, LIPD2, TSH4, HA1C2 ####[address] [address] MCH 30.9 pg Normal 26.0-34.0 [facility] Comment on above: Performed By: #### H EMOG, BMP3, TROPN, LIPD2, TSH4, HA1C2 ####[address] [address] MCHC mass conc (RBC) 34.4 % Normal 32.0-36.0 [facility] Comment on above: Performed By: #### H EMOG, BMP3, TROPN, LIPD2, TSH4, HA1C2 ####[address] [address] MCV 89.7 fL Normal 79.0-98.0 [facility] Comment on above: Performed By: #### H EMOG, BMP3, TROPN, LIPD2, TSH4, HA1C2 ####[place] [address] Platelet mean volume (PMV) 8.2 fL Normal 7.4-10.4 [facility] Comment on above: Performed By: #### H EMOG, BMP3, TROPN, LIPD2, TSH4, HA1C2 ####[address] [address] Platelets 238 10*3/uL Normal 140-440 [facility] Comment on above: Performed By: #### H EMOG, BMP3, TROPN, LIPD2, TSH4, HA1C2 ####[place] [address] [place] [address] WBC (Leukocytes) 9.1 10*3/uL Normal 3.6-10.7 [facility] Comment on above: Performed By: #### H EMOG, BMP3, TROPN, LIPD2, TSH4, HA1C2 ####[address] [address] Lipid Panelon 02-14-2017 Cholesterol to HDL Ratio 3 {ratio} Normal [facility] Comment on above: Result Comment: Ref Range:< 3 Low Risk for CHD3-6 Mod Risk for CHD> 6 High Risk for CHD Performed By: #### H EMOG, BMP3, TROPN, LIPD2, TSH4, HA1C2 ####[address] [address] HDL Cholesterol 42 mg/dL Normal 40-59 [facility] Comment on above: Performed By: #### H EMOG, BMP3, TROPN, LIPD2, TSH4, HA1C2 ####[address] [address] Low Density Lipoprotein 48 mg/dL Normal <100 [facility] Comment on above: Performed By: #### H EMOG, BMP3, TROPN, LIPD2, TSH4, HA1C2 ####[address] [address] Cholesterol 125 mg/dL Normal < 200 [facility] Comment on above: Performed By: #### H EMOG, BMP3, TROPN, LIPD2, TSH4, HA1C2 ####[address] [address] Triglyceride 176 mg/dL Abnormal <150 [facility] Comment on above: Performed By: #### H EMOG, BMP3, TROPN, LIPD2, TSH4, HA1C2 ####[place] [address] Thyroid Stim. Hormoneon 01-22 Thyroid Stim. Hormone 1.430 uU/mL Normal 0.358-3.740 [facility] Comment on above: Performed By: #### H EMOG, BMP3, TROPN, LIPD2, TSH4, HA1C2 ####[place] [address] Troponin Ion 02-14-2017 Troponin I.cardiac mass conc 0.544 ng/mL High 0.000-0.045 [facility] Comment on above: Result Comment: 0.04 6 - 0.400 = Indeterminate> 0.400 = Consider Myocardial Injury Performed By: #### T ROPN ####[place] [address] Troponin I.cardiac mass conc 0.709 ng/mL High 0.000-0.045 [facility] Comment on above: Result Comment: 0.04 6 - 0.400 = Indeterminate> 0.400 = Consider Myocardial Injury Performed By: #### T ROPN ####[place] [address] Troponin I.cardiac mass conc 0.844 ng/mL High 0.000-0.045 [facility] Comment on above: Result Comment: 0.04 6 - 0.400 = Indeterminate> 0.400 = Consider Myocardial Injury Performed By: #### H EMOG, BMP3, TROPN, LIPD2, TSH4, HA1C2 ####[place] [address] Urinalysis,Macroon 7 Bilirubin (direct) Negative Normal Negative [facility] Comment on above: Performed By: #### U AMAC ####[place] [address] Ketone,Urine Negative Normal Negative [facility] Comment on above: Performed By: #### U AMAC ####[place] [address] [place] [address] Occult Blood,Ur Negative Normal Negative [facility] Comment on above: Performed By: #### U AMAC ####[place] [address] [place] [address] Specific Winger,Urine 1.010 Normal 1.005-1.030 [facility] Comment on above: Performed By: #### U AMAC ####[place] [address] [place] [address] Total Protein,Urine Negative Normal Negative [facility] Comment on above: Performed By: #### U AMAC ####[place] [address] [place] [address] Urine, appearance clear Normal Clear [facility] Comment on above: Performed By: #### U AMAC ####[place] [address] [place] [address] Urine, color p. yel Normal Lt. Yellow [facility] Comment on above: Performed By: #### U AMAC ####[place] [address] [place] [address] Urine, glucose presence 1000 mg/dL Normal Negative [facility] Comment on above: Performed By: #### U AMAC ####[place] [address] [place] [address] Urine, nitrite presence Negative Normal Negative [facility] Comment on above: Performed By: #### U AMAC ####[place] [address] [place] [address] Urine, pH 5.0 [pH] Normal 5.0-8.0 [facility] Comment on above: Performed By: #### U AMAC ####[place] [address] [place] [address] Urine, urobilinogen 1 mg/dL Normal 0-1 [facility] Comment on above: Performed By: #### U AMAC ####[place] [address] [place] [address] WBC (Leukocytes) Negative Normal Negative [facility] Comment on above: Performed By: #### U AMAC ####[address] [address] Culture, urine Bacteria identified Cx Nom (U) Presumptive E. coli [facility] Work Phone: Vital Signs Date Time Vital Sign Value Performing Clinician Mable monge 02-15-2025 15:32-0400 Body temperature 98.6 [degF] Dr. Bebeto Santana MD Work Phone: [facility] 02-15-2025 15:32-0400 Diastolic blood pressure 66 mm[Hg] Dr. Bebeto Santana MD Work Phone: [phone] [place] [address] 02-15-2025 15:32-0400 Heart rate 78 /min Dr. Bebeto Santana MD Work Phone: [phone] [place] [address] 02-15-2025 15:32-0400 Respiratory rate 15 /min Dr. Bebeto Santana MD Work Phone: [phone] [place] [address] 02-15-2025 15:32-0400 SaO2% (BldA) [Mass fraction] 100 % Dr. Bebeto Santana MD Work Phone: [facility] 02-15-2025 15:32-0400 Systolic blood pressure 113 mm[Hg] Dr. Bebeto Santana MD Work Phone: [facility] 02-15-2025 13:11-0400 Body height 154.[address] Bebeto Santana MD Work Phone: [facility] 02-15-2025 13:11-0400 Body mass index (BMI) [Ratio] 26.9 kg/m2 Dr. Bebeto Santana MD Work Phone: [facility] 02-15-2025 13:11-0400 Body weight 64.[address] Bebeto Santana MD Work Phone: [facility] 11-24-2022 14:15-0400 Body temperature 97.4 [degF] Dr. Bebeto Santana Work Phone: [facility] 11-24-2022 14:15-0400 Diastolic blood pressure 61 mm[Hg] Dr. Bebeto Santana Work Phone: [facility] 11-24-2022 14:15-0400 Heart rate 69 /min Dr. Bebeto Santana Work Phone: [facility] 11-24-2022 14:15-0400 Respiratory rate 16 /min Dr. Bebeto Santana Work Phone: [facility] 11-24-2022 14:15-0400 SaO2% (BldA) [Mass fraction] 100 % Dr. Bebeto Santana Work Phone: [facility] 11-24-2022 14:15-0400 Systolic blood pressure 106 mm[Hg] Dr. Bebeto Santana Work Phone: [facility] 11-24-2022 11:22-0400 Body height 154.[address] Bebeto Santana Work Phone: [facility] 11-24-2022 11:22-0400 Body mass index (BMI) [Ratio] 26 kg/m2 Dr. Bebeto Santana Work Phone: [facility] 11-24-2022 11:22-0400 Body weight 62.[address] Bebeto Santana Work Phone: [facility] 06-18-2022 15:27-0400 Body height 154.[address] Bebeto Santana Work Phone: [facility] 06-18-2022 15:27-0400 Body mass index (BMI) [Ratio] 26.3 kg/m2 Dr. Bebeto Santana Work Phone: [facility] 06-18-2022 15:27-0400 Body weight 63.[address] Bebeto Santana Work Phone: [facility] 03-21-2022 09:34-0400 Body temperature 97.8 [degF] Dr. Bebeto Santana Work Phone: [facility] Work Phone: 03-21-2022 09:34-0400 Diastolic blood pressure 66 mm[Hg] Dr. Bebeto Santana Work Phone: [facility] Work Phone: 03-21-2022 09:34-0400 Heart rate 73 /min Dr. Bebeto Santana Work Phone: [facility] Work Phone: 03-21-2022 09:34-0400 Respiratory rate 18 /min Dr. Bebeto Santana Work Phone: [facility] Work Phone: 03-21-2022 09:34-0400 SaO2% (BldA) [Mass fraction] 97 % Dr. Bebeto Santana Work Phone: [facility] Work Phone: 03-21-2022 09:34-0400 Systolic blood pressure 127 mm[Hg] Dr. Bebeto Santana Work Phone: [facility] Work Phone: 03-21-2022 06:00-0400 Body weight 69.[address] Bebeto Santana Work Phone: [facility] Work Phone: 03-20-2022 10:23-0400 Body height 154.[address] Bebeto Santana Work Phone: [facility] Work Phone: 03-20-2022 10:23-0400 Body mass index (BMI) [Ratio] 25.8 kg/m2 Dr. Bebeto Santana Work Phone: [facility] Work Phone: 03-20-2022 04:57-0400 Body temperature 98 [degF] Dr. Bebeto Santana Work Phone: [facility] Work Phone: 03-20-2022 04:57-0400 Diastolic blood pressure 75 mm[Hg] Dr. Bebeto Santana Work Phone: [facility] Work Phone: 03-20-2022 04:57-0400 Heart rate 77 /min Dr. Bebeto Santana Work Phone: [facility] Work Phone: 03-20-2022 04:57-0400 Respiratory rate 16 /min Dr. Bebeto Santana Work Phone: [facility] Work Phone: 03-20-2022 04:57-0400 SaO2% (BldA) [Mass fraction] 97 % Dr. Bebeto Santana Work Phone: [facility] Work Phone: 03-20-2022 04:57-0400 Systolic blood pressure 98 mm[Hg] Dr. Bebeto Santana Work Phone: [facility] Work Phone: 03-20-2022 02:07-0400 Body height 154.[address] Bebeto Santana Work Phone: [facility] Work Phone: 03-20-2022 02:07-0400 Body mass index (BMI) [Ratio] 28 kg/m2 Dr. Bebeto Santana Work Phone: [facility] Work Phone: 03-20-2022 02:07-0400 Body weight 67.[address] Bebeto Santana Work Phone: [facility] Work Phone: Encounters Encounter Date Encounter Type Care Provider Facility Start: 02-15-2025 Evaluation and management of inpatient Dr. Lakeshia Mas MD -Medical Surgical 3 Work Phone: Start: 12-27-2024 End: 12-27-[address] Bebeto Santana MD Work Phone: [facility] Work Phone: Start: 12-27-2024 End: 12-27-[address] Bebeto Santana MD -Laboratory Work Phone: Start: 12-27-2024 End: 12-27-2024 ambulatory Bebeto Santana Facility:[facility] Start: 09-25-2024 End: 09-25-[address] Bebeto Santana MD -Laboratory Work Phone: Start: 09-25-2024 End: 09-25-2024 ambulatory Bebeto Chi Desmond Facility:[facility] Start: 07-19-2024 ambulatory Bebeto Chi Desmond [facility] Start: 06-21-2024 End: 06-21-2024 ambulatory [facility] Facility:[facility] Start: 04-12-2024 ambulatory [facility] Start: 03-31-2024 ambulatory [facility] Start: 03-21-2024 End: 03-21-2024 ambulatory [facility] Facility:[facility] Start: 12-20-2023 End: 12-20-2023 ambulatory [facility] Work Phone: Start: 12-20-2023 End: 12-20-2023 Patient encounter procedure [facility] Work Phone: Start: 09-21-2023 End: 09-21-2023 ambulatory [facility] Work Phone: Start: 09-21-2023 End: 09-21-2023 [facility] Start: 06-15-2023 End: 06-15-2023 [facility] Start: 03-17-2023 End: 03-17-[address] Bebeto Santana Work Phone: [facility] Work Phone: Start: 03-17-2023 End: 03-17-[address] [facility] Start: 12-21-2022 End: 12-21-[address] Bebeto Santana Work Phone: [facility] Work Phone: Start: 12-21-2022 End: 12-21-[address] Bebeto Santana Work Phone: [facility], [facility] Office 3rd Flr Start: 12-16-2022 End: 12-16-[address] Bebeto Santana Work Phone: [facility] Work Phone: Start: 12-16-2022 End: 12-16-[address] [facility] 3[facility] Flr Start: 12-09-2022 End: 12-09-[address] Bebeto Santana Work Phone: [facility] Start: 11-24-2022 Non-patient / Non-visit Dr. Bebeto Santana Work Phone: [facility] Start: 11-24-2022 End: 11-24-2022 Non-patient / Non-visit Dr. Bebeto Santana Work Phone: [facility] Start: 11-24-2022 End: 11-24-2022 Admission to same day surgery center Dr. Bebeto Santana Work Phone: [facility] Start: 11-24-2022 End: 11-24-[address] Bebeto Santana Work Phone: [facility] Work Phone: Start: 09-16-2022 End: 09-16-[address] Bebeto Santana Work Phone: [facility] Work Phone: Start: 09-16-2022 End: 09-16-[address] [facility] 3[facility] Flr Start: 09-10-2022 End: 09-10-[address] Bebeto Santana Work Phone: [facility] Start: 07-08-2022 End: 07-08-[address] Bebeto Santana Work Phone: [facility] Work Phone: Start: 07-08-2022 End: 07-08-[address] [facility]eb[facility] Sant[facility] 3[facility] Flr Start: 06-18-2022 End: 06-18-[address] Bebeto Santana Work Phone: [facility] Start: 05-25-2022 End: 05-25-[address] Bebeto Santana Work Phone: [facility] Work Phone: Start: 05-25-2022 End: 05-25-[address] Bebeto Santana Work Phone: [facility], [facility] Office 3rd Flr Start: 04-09-2022 End: 04-09-[address] Bebeto Santana Work Phone: [facility] Work Phone: Start: 04-09-2022 End: 04-09-[address] Bebeto Santana Work Phone: [facility], [facility] Office 3rd Flr Start: 03-21-2022 Non-patient / Non-visit Dr. Bebeto Santana Work Phone: [facility] Start: 03-20-2022 Non-patient / Non-visit Dr. Bebeto Santana Work Phone: [facility] Start: 03-20-2022 End: 03-21-2022 Evaluation and management of inpatient Dr[facility] Santana [facility] Start: 03-20-2022 Non-patient / Non-visit Dr. Bebeto Santana Work Phone: [facility] Start: 12-22-2021 End: 12-22-2021 [facility] Start: 12-15-2021 End: 12-15-2021 [facility] Start: 09-24-2021 End: 09-24-2021 [facility] Start: 09-15-2021 End: 09-15-2021 [facility] Start: 03-05-2017 Ambulatory Joe Hein [facility] Start: 02-18-2017 End: 02-19-2017 Ambulatory [facility] Facility:[facility] Start: 02-13-2017 Emergency department patient visit Abhay Jarvis [facility] Procedures Date Procedure Procedure Detail Performing Clinician Start: 02-15-2025 Urnls dip stick/tablet reagent auto microscopy Dr. Bebeto Santana MD Work Phone: Start: 02-15-2025 Plain X-ray of femur Dr. Bebeto Santana MD Work Phone: Start: 02-15-2025 Plain x-ray of pelvis and lower extremity Dr. Bebeto Santana MD Work Phone: Start: 02-15-[address] Bebeto watson MD Work Phone: Start: 09-25-2024 Measurement of renal function Dr. Bebeto coles MD Work Phone: Comment on above: GFR Calc Start: 09-25-2024 Vitamin D, 25-hydroxy measurement Dr. Ben Santana MD Work Phone: Comment on above: Vitamin D 25(OH) Status Range Deficiency <20 ng/mL (50nmol/L) Insufficiency 20 - 30 ng/mL (50 - 75 nmol/L) Sufficiency 30 - 100 ng/mL (75 - 250 nmol/L) Toxicity >100 ng/mL (>250 nmol/L) Start: 11-24-[address] Bebeto Santana Work Phone: Start: 11-24-2022 End: 11-24-[address] Bebeto Santana Work Phone: Start: 03-20-2022 End: 03-20-[address] Bebeto Santana Work Phone: Start: 03-20-[address] Bebeto Santana Work Phone: Start: 03-20-2022 Computed tomography of abdomen and pelvis with intravenous contrast Dr. Bebeto Santana Work Phone: Urine culture Dr. Bebeto Santana Work Phone: Plan of Treatment Date Care Activity Detail Author Start: 02-16-2025 Open reduction of fracture of femur with internal fixation ORIF, Hip, Gamma Nail (Left) [facility] Start: 02-15-2025 Verification routine [facility] Start: 02-15-2025 Admission procedure [facility] Start: 02-15-2025 Hospital admission, emergency, from emergency room, medical nature [facility] Start: 02-15-2025 [facility] Start: 11-24-2022 Anesthesia upper gi endoscopic px ercp ANES UPR GI NDSC PX ERCP [facility] Start: 11-24-2022 Ercp remove calculi/debris biliary/pancreas duct ERCP REMOVE DUCT CALCULI [facility] Start: 11-24-2022 Ercp remove foreign body/stent biliary/panc duct ERCP REMOVE FORGN BODY DUCT [facility] Start: 11-24-2022 Ercp w/sphincterotomy/papillotomy ENDO CHOLANGIOPANCREATOGRAPH [facility] Start: 11-24-2022 Endoscopic retrograde cholangiopancreatography ERCP Biliary/Pancreas [facility] Start: 11-24-2022 RF Guidance for endoscopy of Biliary ducts and Pancreatic duct-- W contrast retrograde [facility] Start: 11-24-2022 Patient discharge [facility] Start: 03-21-2022 Patient discharge [facility] Work Phone: Start: 03-20-2022 Application of intermittent pneumatic compression device [facility] Work Phone: Start: 03-20-2022 Catheterization of vein [facility] Work Phone: Start: 03-20-2022 Following clinical pathway protocol [facility] Work Phone: Start: 03-20-2022 Assessment of risk of venous thromboembolism [facility] Work Phone: Start: 03-20-2022 Care regimes management [facility] Work Phone: Start: 03-20-2022 Fall prevention [facility] Work Phone: Start: 03-20-2022 Incentive spirometry [facility] Work Phone: Start: 03-20-2022 Inhalation therapy procedure [facility] Work Phone: Start: 03-20-2022 Insertion of catheter into peripheral vein [facility] Work Phone: Start: 03-20-2022 Introduction of urinary catheter [facility] Work Phone: Start: 03-20-2022 Measuring intake and output [facility] Work Phone: Start: 03-20-2022 Oxygen therapy [facility] Work Phone: Start: 03-20-2022 Providing care according to standard [facility] Work Phone: Start: 03-20-2022 Provision of activity privileges [facility] Work Phone: Start: 03-20-2022 Referral to gastroenterology service [facility] Work Phone: Start: 03-20-2022 Referral to service [facility] Work Phone: Start: 03-20-2022 [facility] Work Phone: Start: 03-20-2022 Verification routine [facility] Work Phone: Start: 03-20-2022 Admission procedure [facility] Work Phone: Start: 03-20-2022 [facility] Work Phone: Start: 03-20-2022 Patient referral to dietitian [facility] Work Phone: Bacteria identified in Urine by Culture Urine Culture [facility] Work Phone: Patient referral [facility] Work Phone: [facility] Work Phone: Payers Date Payer Category Payer Medicare [id number] 2024 Self-pay [id number] Private Health Insurance Unknown [id number] Unknown [id number] [id number] Unknown [id number] [id number] Unknown [id number] [id number] [id number] Unknown [id number] 2.16.8 [id number] Unknown [id number] 2.16.8 [id number] Unknown [id number] [id number] [id number] Unknown [id number] 2.16.8 [id number] Social History Date Type Detail Facility Start: 10-22-2020 End: 12-09-2022 Tobacco smoking status NHIS Unknown if ever smoked [facility] Start: 02-13-2017 None [facility] Start: 10-22-2020 Non-smoker [facility] Start: 1945 Sex Assigned At Female [facility] Start: 12-09-2022 End: 02-15-2025 Tobacco smoking status NHIS Never smoked tobacco (finding) [facility] NEGATED: Highlighted row [facility] Medical Equipment Procedure Code Equipment Code Equipment Origin al Text Equipment Identifier Dates ERCP (endoscopic retrograde cholangiopancreatog forrest) STENT, RX 7FR x 12CM FDA Start: 03-20-2022 ERCP (endoscopic retrograde cholangiopancreatog forrest) STENT,RX PLASTIC BILIARY 10X9 FDA Start: 03-20-2022 ERCP (endoscopic retrograde cholangiopancreatog forrest) STENT, RX 7FR x 12CM FDA Start: 03-20-2022 ERCP (endoscopic retrograde cholangiopancreatog forrest) STENT,RX PLASTIC BILIARY 10X9 FDA Start: 03-20-2022 ERCP (endoscopic retrograde cholangiopancreatog forrest) STENT, RX 7FR x 12CM FDA Start: 03-20-2022 ERCP (endoscopic retrograde cholangiopancreatog forrest) STENT,RX PLASTIC BILIARY 10X9 FDA Start: 03-20-2022 ERCP (endoscopic retrograde cholangiopancreatog forrest) STENT, RX 7FR x 12CM FDA Start: 03-20-2022 ERCP (endoscopic retrograde cholangiopancreatog forrest) STENT,RX PLASTIC BILIARY 10X9 FDA Start: 03-20-2022 ERCP (endoscopic retrograde cholangiopancreatog forrest) STENT, RX 7FR x 12CM FDA Start: 03-20-2022 ERCP (endoscopic retrograde cholangiopancreatog forrest) STENT,RX PLASTIC BILIARY 10X9 FDA Start: 03-20-2022 ERCP (endoscopic retrograde cholangiopancreatog forrest) STENT, RX 7FR x 12CM FDA Start: 03-20-2022 ERCP (endoscopic retrograde cholangiopancreatog forrest) STENT,RX PLASTIC BILIARY 10X9 FDA Start: 03-20-2022 ERCP (endoscopic retrograde cholangiopancreatog forrest) STENT, RX 7FR x 12CM FDA Start: 03-20-2022 ERCP (endoscopic retrograde cholangiopancreatog forrest) STENT,RX PLASTIC BILIARY 10X9 FDA Start: 03-20-2022 ERCP (endoscopic retrograde cholangiopancreatog forrest) STENT, RX 7FR x 12CM FDA Start: 03-20-2022 ERCP (endoscopic retrograde cholangiopancreatog forrest) STENT,RX PLASTIC BILIARY 10X9 FDA Start: 03-20-2022 ERCP (endoscopic retrograde cholangiopancreatog forrest) STENT, RX 7FR x 12CM FDA Start: 03-20-2022 ERCP (endoscopic retrograde cholangiopancreatog forrest) STENT,RX PLASTIC BILIARY 10X9 FDA Start: 03-20-2022 ERCP (endoscopic retrograde cholangiopancreatog forrest) STENT, RX 7FR x 12CM FDA Start: 03-20-2022 ERCP (endoscopic retrograde cholangiopancreatog forrest) STENT,RX PLASTIC BILIARY 10X9 FDA Start: 03-20-2022 ERCP (endoscopic retrograde cholangiopancreatog forrest) STENT, RX 7FR x 12CM FDA Start: 03-20-2022 ERCP (endoscopic retrograde cholangiopancreatog forrest) STENT,RX PLASTIC BILIARY 10X9 FDA Start: 03-20-2022 ERCP (endoscopic retrograde cholangiopancreatog forrest) STENT, RX 7FR x 12CM FDA Start: 03-20-2022 ERCP (endoscopic retrograde cholangiopancreatog forrest) STENT,RX PLASTIC BILIARY 10X9 FDA Start: 03-20-2022 Goals Date Patient Goal Desired Activity /State Functional Status Date Assessment Result Facility 03-21-2022 Functional status Ambulates [facility] Work Phone: Mental Status Date Assessment Result Facility 11-24-2022 Cognitive function Voice/Name [facility] Work Phone: 11-24-2022 Cognitive function Patient Orien tation Person;Place;Time [facility] Work Phone: 03-21-2022 Cognitive function Appropriate;Cooperativ e [facility] Work Phone: 03-20-2022 Cognitive function Awake;Alert;A ppropriate;Follo ws Commands [facility] Work Phone: Clinical Notes 11-24-2022 to 02-15-2025 Note Date & Type Note Facility 02-15-2025 History and physi afshan note [facility] 02-15-2025 Discharge summary [facility] 02-15-2025 Radiology Diagnostic study note [facility] Imaging Services [address] [place] [address] Femur Min 2 Views MR#: [id number] Acct: [id number] Name: HEATHER LANDRY Rep #: [id number] : 1945 From: Joya Vazquez MD PCP: Dr. Bebeto Santana MD Status: PRE E R Study:Femur Min 2 Views Date of Exam: Exam# [id number] Ordering Dr: Nathan Cano DO EXAM: XR Left Femur, 2 Views CLINICAL INDICATION: FALL TECHNIQUE: Frontal and lateral views of the left femur. COMPARISON: No relevant prior studies available. FINDINGS: BONES/JOINTS: Comminuted impacted left intertrochanteric fracture. No dislocation. SOFT TISSUES: Soft tissue swelling. RAD/Femur Min 2 Views IMPRESSION: Comminuted impacted left intertrochanteric fracture. Reading Location: [facility] CC: Dr. Bebeto Santana MD; Dr. Abdirashid Cano DO ~ Chef Kitchen Manager: Signed [facility] 02-15-2025 Radiology Diagnostic study note [facility] Imaging Services [address] [place] [id number] HIP, UNI W/ Pelvis 2-3 Views MR#: [id number] Acct: [id number] Name: HEATHER LANDRY Rep #: [id number] : 1945 F From: Joya Vazquez MD PCP: Dr. Bebeto Santana MD Status: PRE E R Study:HIP, UNI W/ Pelvis 2-3 Views Date of Ex am: 02/15/25 Exam# [id number] Ordering Dr: Nathan Cano DO EXAM: XR Left Hip With Pelvis When Performed, 2 or 3 Views CLINICAL INDICATION: FALL TECHNIQUE: Two or three views of the left hip with pelvis when performed. COMPARISON: No relevant prior studies available. FINDINGS: BONES/JOINTS: Comminuted impacted left intertrochanteric fracture. No dislocation. SOFT TISSUES: Soft tissue swelling. RAD/HIP, UNI W/ Pelvis 2-3 Views IMPRESSION: Comminuted impacted left intertrochanteric fracture. Reading Location: [facility] CC: Dr. Bebeto Santana MD; Dr. Abdirashid Cano DO ~ Chef Kitchen Manager: Signed [facility] 02-15-2025 Discharge summary Note Date/Time February 15, 2025 2:40pm [facility] Medical Records Department [address] [place] [address] Emergency Department Summary 02/15/25 MR#: [id number] Acct: [id number] Name: HEATHER LANDRY Rep #:[id number] : 1945 79 From: Abdirashid Cano DO PCP: Dr. Bebeto Santana MD Status:REG E R Location: ED ADDENDUM by Dr. Abdirashid Cano DO on 02/15/25 at 1440 Patient is CMP reviewed showed sodium of 133, potassium was 3.7, creatinine was 0.76. Patient's AST and ALT were 33 and less than 5 respectively, total bilirubin elevated 2.68. CO2 was low at 18.1. 02/15/25 1440<Electronically signed by Abdirashid Cano DO> Cosigner Signature (if applicable): cc: Dr. Bebeto Santana MD ~* Signed HPI History of Present Illness Chief Complaint: Lower Extremity Injury Narrative Narrative: Patient is a 79-year-old female past medical history diabetes, hypertension, hypothyroidism who presented to the emergency department chief complaint of inability to walk. Patient states that she fell on Wednesday of last week and states that she had her sons help her to the couch and she has not been able to get up off the couch since then. She states that her sons and other individuals were bringing her food and water/drinks. She states that since she has had persistent pain and not able to get up she came in by EMS today. [facility] Medical History Wears glasses Rash Thyroid disease Diabetes Arthritis Restless legs Syncope Dietary restriction Non-smoker Leg cramps Hypertension Chronic anemia Hypothyroidism Diabetes mellitus, type 2 Hypertension Home Medications ?Medication ?Instructions ?Recorded ?Last Taken ?Type carbidopa 25 mg-levodopa 100 mg 1 tab PO TID 02/15/25 02/15/25 History tablet losartan 50 mg tablet 50 mg PO DAILY 02/15/2501/22 History Allergy/AdvReac Type Severity Reaction Status Date / Time Penicillins Allergy Intermediate Hives Verified 02/15/25 13:14 Family History Father Myocardial infarction Hypertension Heart disease Sister Breast cancer Mother CVA (cerebral vascular accident) Surgical History Hx of right cataract extraction Hx of left cataract extraction Hx of esophagogastroduodenoscopy Hx of colonoscopy History of ERCP S/P tubal ligation History of thoracic surgery H/O thyroidectomy History of cholecystectomy Hx of appendectomy Social History household members: other details: with son Smoking Status: Never smoker alcohol intake: never substance use type: does not use what type of physical activity do you participate in: none do you feel safe at home: Yes ROS ROS ED ROS Narrative Constitutional: Denies headache, lightness, dizziness Eyes: Denies change in vision double vision blurry vision Cardiovascular: Denies chest pain Respiratory: Denies shortness of breath Abdomen: Denies abdominal pain nausea vomit diarrhea : Denies urinary symptoms Neurological: Denies numbness, weakness, tingling Musculoskeletal: Complains of left hip pain Skin: Denies any rashes or lesions EXAM Physical Exam Narrative Exam Narrative: General: Patient lying in bed resting comfortably did not appear to be in acute distress Head: Atraumatic, normocephalic Eyes: PERRL bilaterally, EOMI bilateral, no conjunctival injection noted Neck: Soft, supple, trachea midline Cardiovascular: Regular rate and rhythm Respiratory: Clear to auscultation bilaterally Abdomen: Soft, nondistended, no tenderness palpation Musculoskeletal: Patient has obvious deformity to the left thigh region Extremities: DP pulses +2/4 in the left lower extremity Neurological: Patient following commands and that she was at the hospital the year is 2024 Skin: Warm, dry, tact no rashes or lesions noted Const Vital Signs: 02/15/25 13:11 Temperature 98.3 F Temperature Source Oral Pulse Rate 98 Respiratory Rate 16 Blood Pressure 105/74 Blood Pressure Mean 84 Pulse Ox 100 Oxygen Delivery Method Room Air MDM MDM MDM Narrative Medical decision making narrative: Patient is a 79-year-old female who presented to the emergency department the chief complaint of left hip pain and unable to walk. On the differential diagnose includes but limited to femoral neck fracture, intertrochanteric hip fracture, subtrochanteric sure. Once workup is obtained reviewed she will be reevaluated. Patient's CBC reviewed showed no evidence leukocytosis white blood count normal at 9.1, hemoglobin is 8.7, platelet count 258. Patient's chemistries are pending urinalysis pending. Patient's x-ray of her hip and pelvis as well as her left femur reviewed by myself and by radiology which showed a comminuted impacted left intertrochanteric hip fracture. Will discuss case with orthopedic surgeon Dr. Chacon. Will discuss case with hospitalist for admission as well. Discussed case with hospitalist Dr. Mas who accept patient for admission. Notified the patient and family members at bedside they are agreeable spinal course concerns answered. Lab Data Labs: Laboratory Results - last 24 hr 02/15/25 02/15/25 13:21 14:18 WBC 9.1 RBC 2.71 L Hgb 8.7 L Hct 24.0 L MCV 88.6 MCH 32.1 H MCHC 36.3 H RDW Std Deviation 42.4 RDW Coeff of Cody 14.1 Plt Count 258 MPV 9.6 Immature Gran % (Auto) 0.300 Neut % (Auto) 50.2 Lymph % (Auto) 38.6 Stone % (Auto) 8.7 Eos % (Auto) 1.8 Baso % (Auto) 0.4 Absolute Neuts (auto) 4.6 Absolute Lymphs (auto) 3.52 Nucleated RBC % 0 Urine Color Straw Urine Clarity Clear Urine pH 6.5 Ur Specific Winger 1.010 Urine Protein 30 H Urine Glucose (UA) Normal Urine Ketones 15 H Urine Occult Blood 10 H Urine Nitrite Negative Urine Bilirubin Negative Urine Urobilinogen 8 H Ur Leukocyte Esterase Negative Radiography Diagnostic Testing: Clinical Impression(s) from Imaging Studies Femur X-Ray 02/15/25 13:40 IMPRESSION: Comminuted impacted left intertrochanteric fracture. Reading Location: [facility] Hip/Pelvis X-Ray 02/15/25 13:40 IMPRESSION: Comminuted impacted left intertrochanteric fracture. Reading Location: [facility] Discharge Plan Triage Chief Complaint: Lower Extremity Injury ED Provider: Abdirashid Cano Dx/Rx/DC Orders Clinical Impression: Fall, Hip fracture Prescriptions: No Action losartan 50 mg tablet 50 mg PO DAILY carbidopa-levodopa 25-100 mg tablet 1 tab PO TID Primary Care Provider: Bebeto Santana Chi Referrals: Bebeto Santana Chi, MD [Primary Care Provider] - Print Language: Thai Disposition Disposition: Acute Care Hospital [facility] What to do if you have Problems For any increased pain, shortness of breath, bleeding, nausea or vomiting, chestpain, or any unexpected problems, contact your Primary Care Provider. Call [facility] ([phone]) or report to the closest Emergency Room. Call 911 if necessary. 02/15/25 1438 <Electronically signed by Abdirashid Cano DO> Cosigner Signature (if applicable): CC: Dr. Bebeto Santana MD ~ Signed [facility] Work Phone: 1(681) 862-526404-04-2023 History and physical note Author Antony Tran [facility] November 24, 2022 12:29pm Note Date/Time November 24, 2022 12:2 9pm [facility] Medical Records Department [address] [place] [id number] History & Physical Exam 11/24/22 1229 MR#: [id number] Acct: [id number] Name: HEATHER LANDRY Rep #:[id number] : 1945 77 From: Antony Tran DO PCP: Dr. Bebeto Santana MD Status:REG S DC Location: [place] [address] History and Physical Date of Admission: 11/24/22 77 F who presents to the office today for Follow up visit. Heather established with this clinic through hospitalization at [facility]. She presented to [facility] ED 7with abdominal pain in the RUQ with persistent emesis. Imaging and biochemical workup performed and she was admitted. Gastroenterology consulted 03.20.22 with ERCP performed same day to address choledocholithiasis, pancreatitis and incidentally found gastritis. She was discharged 03.21.22 in stable condition.? ? CT abd/pel 7 noting distended CBD with hyperdense material suggestive of sludge versus stone; edema within ambreen hepatis, pancreatic head and duodenum with findings suspicious of pancreatitis; thick-walled decompression of distal stomach, duodenal bulb and first and second part of duodenum; diverticulitis; mild/moderate stool retention.? ? ERCP 03.20.22 entire main bile duct markedly dilated with stone causing obstruction; choledocholithiasis with complete removal with biliary sphincterotomy and balloon extraction; biliary tree swept; CBD dilation successful; a total of three stents placed in CBD.? ? OV 06.18.22?start prednisone, azithromycin and levofloxacin for acute bronchitiswith a history of pne.? ? Plan LV 06.18.22? Choledocholithiasis ? return for stent removal and biochemical monitoring? Bronchitis ? atb therapy? Today denies any abdominal pain. ROS Const Constitutional: Positive for headache(s); No fatigue, fever(s), frequent falls or weight change ENT ENT: Positive for headache(s); No difficulty swallowing Cardio Cardiology: No leg pain with exertion Gastro GI: No abdominal pain, bloating, change in bowel habits, constipation, diarrhea,heartburn, difficulty swallowing, Vomiting blood/hematemesis, Blood in stool, nausea/dyspepsia or vomiting Musc Musculoskeletal: Positive for numbness, tingling and Arthritis; No abnormal gait, joint pain, back pain, joint swelling, muscle cramps, muscle weakness, stiffness, sciatica, leg pain at night or leg pain with exertion Skin Skin: No dry skin, lesions, itchy eyes or rash Neuro Neurology: Positive for headache(s), numbness and tingling; No abnormal gait, dizziness, frequent falls, tremor(s), Increased tone in limbs,paralysis or seizures Psych Psychiatric: No anxiety, Positive for depression, No paranoia, No Behavioral Problems, No Compulsive Behavior, No hyperactivity, Positive for inattentiveness, No obsessions/compulsions, No Temper Tantrums and No suicidal ideation Endo Endocrine: No fatigue or weight change Aller/Imm Allergy/Immunologic: No itchy eyes Leonel/Lymp Hematologic/Lymphatic: Positive for easy bruising; No easy bleeding Exam Const General: cooperative and comfortable Nutritional Appearance: average body habitus and well nourished [facility] Head: normal to inspection Ears: hearing grossly normal bilaterally Nose: external nose normal Face and sinus: normal facial exam Mouth: oral mucosae normal Throat: posterior oropharynx normal Eyes General: appearance normal, both eyes and all related structures Neck Neck: normal visual inspection Chest Chest palpation & inspection: normal inspection of the chest and normal palpation of entire chest wall Resp Effort & Inspection: normal respiratory effort, audible wheezes and other Auscultation: Bilateral: Clear to Auscultation Cardio Palpation: normal PMI Rate: regular rate Rhythm: regular rhythm GI Inspection: normal to inspection Auscultation: normal bowel sounds Percussion: normal to percussion Palpation: no hepatosplenomegaly Skin General: no rashes or lesions noted Neuro General: patient alert Extrem General: normal to inspection Psych Affect: normal affect Quality Reporting Tobacco Screening ([facility] 138) Smoking Status: Never smoker Assessment and Plan Assessment and Plan (1) Choledocholithiasis: ?Status:?Acute ?Plan: She had several stones removed via ERCP and is doing very well.? She also had a temporary plastic stent placed.? She will need to return for LFTs and to have the stent removed. (2) Bronchitis: ?Status:?Acute ?Plan: resolved I have examined the patient and the H&P has been reviewed. There are no clinicalchanges since date of exam. 11/24/22 1229 <Electronically signed by Antony Tran DO> Cosigner Signature (if applicable): CC: Dr. Bebeto Santana MD; Antony Tran DO~ Signed [facility] Work Phone: 1([phone]) 113-252504-04-2023 Procedure [facility] 11-24-2022 [facility]WH[facility] HospitalEvaluation noteNo assessment information availableWHarrison Community Hospital Work Phone: Evaluation note* Diagnosis Onset Date Resolution Status Acute gallstone pancreatitis acute Choledocholithiasis acute Pancreatitis acute UTI (urinary tract infection) acute [facility] Work Phone: Evaluation note* Diagnosis Onset Date Resolution Status Acute gallstone pancreatitis resolved Choledocholithiasis resolved Pancreatitis resolved UTI (urinary tract infection) resolved [facility] Work Phone: Evaluation note* Diagnosis Onset Date Resolution Status Acute gallstone pancreatitis resolved Choledocholithiasis resolved Pancreatitis resolved UTI (urinary tract infection) resolved Bronchitis acute Choledocholithiasis acute [facility] Work Phone: Evaluation note* Diagnosis Onset Date Resolution Status Bronchitis acute Choledocholithiasis acute Bronchitis acute Choledocholithiasis acute [facility] Work Phone: evaluation note* Diagnosis Onset Date Resolution Status Bronchitis acute Choledocholithiasis acute [facility] Work Phone: Evaluation note* Diagnosis Onset Date Resolution Status Bronchitis acute Bronchitis acute Constipation chronic [facility] Work Phone: Evaluation note* Diagnosis Onset Date Resolution Status Bronchitis acute Constipation chronic [facility] Work Phone: Evaluation note* Diagnosis Onset Date Resolution Status Admit Date Fall acute February 15 2:56pm Hip fracture acute February 15 2:56pm [facility] Work Phone: History and physical note Author Lakeshia Mas [facility] Note Date/Time February 15, 2025 3:05 pm [facility] Medical Records Department [address] [place] [id number] H&P Exam - Hospitalist 02/15/25 1456 MR#: [id number] Acct: [id number] Name: HEATHER LANDRY Rep #:[id number] : 1945 79 From: Lakeshia Mas MD PCP: Dr. Bebeto Santana MD Status:REG E R Location: ED HPI - General General Date of Admission: 02/15/25 Date of Service: 02/15/25 Chief Complaint: Left hip fracture HPI Narrative HEATHER LANDRY, is a 79-year-old female history of diabetes, hypertension, hypothyroidism presented to [facility] ED 02/15/2025 with inability to walk. She fell Wednesday of last week and had her sons help her get to the couch but she has not been able to get up off the couch since then and notes that friends and family been bringing her food and water/drinks but due tothe persistent pain and still not able to get up she called EMS and presented [facility]. On arrival in the ED patient afebrile, blood pressure 105/74 withheart rate of 98 and respiratory rate 16 with pulse ox 100% on room air. CBC did reveal hemoglobin of 8.7, last value available 09/25/2024 was 11.4. CMP with a creatinine within normal limits but does note total bilirubin of 2.68, minimalelevation of AST to 33 with a normal ALT and alk phos. UA does not appear infectious. X-ray of the pelvis did reveal a left intertrochanteric fracture. Ortho contacted who recommended medicine admission with Ortho consult. Hospitalist contacted for mission. Patient evaluated at bedside with family member present, they do report the fall roughly week ago with pain, her son has been changing her she has been unable to walk or get to the bathroom. Aside from the pain patient has no other new or acute complaints [facility] Medical History Wears glasses Rash Thyroid disease Diabetes Arthritis Restless legs Syncope Dietary restriction Non-smoker Leg cramps Hypertension Chronic anemia Hypothyroidism Diabetes mellitus, type 2 Hypertension Home Medications ?Medication ?Instructions ?Recorded ?Last Taken ?Type carbidopa 25 mg-levodopa 100 mg 1 tab PO TID 02/15/25 02/15/25 History tablet losartan 50 mg tablet 50 mg PO DAILY 02/15/2501/22 History Allergy/AdvReac Type Severity Reaction Status Date / Time Penicillins Allergy Intermediate Hives Verified 02/15/25 13:14 Family History Father Myocardial infarction Hypertension Heart disease Sister Breast cancer Mother CVA (cerebral vascular accident) Surgical History Hx of right cataract extraction Hx of left cataract extraction Hx of esophagogastroduodenoscopy Hx of colonoscopy History of ERCP S/P tubal ligation History of thoracic surgery H/O thyroidectomy History of cholecystectomy Hx of appendectomy Social History household members: other details: with son Smoking Status: Never smoker alcohol intake: never substance use type: does not use what type of physical activity do you participate in: none do you feel safe at home: Yes ROS ROS Narrative General: Denies fever/chills HENT: Denies headache, denies stuffy nose, denies sore throat EYES: Denies changes in vision Resp: Denies cough, denies shortness of breath Cardiac: Denies chest pain GI: Denies abdominal pain, denies changes in bowel, denies nausea/vomiting : Denies changes in urination Extremity: Denies swelling MSK: Denies weakness but does have the left-sided hip pain Neuro: Denies any numbness/tingling Heme: Denies any bleeding or bruising Skin: Denies rashes Psychiatric: No complaints voiced Vital Signs Vital Signs Vital Signs: 02/15/25 13:11 Temperature 98.3 F Temperature Source Oral Pulse Rate 98 Respiratory Rate 16 Blood Pressure 105/74 Blood Pressure Mean 84 Pulse Ox 100 Oxygen Delivery Method Room Air Weight Weight: 64.5 kg Body Mass Index (BMI) 26.9 Physical Exam Narrative General: Alert, oriented, no apparent distress HEENT: Atraumatic, normocephalic Eyes: Anicteric, normal conjunctiva, extraocular movements grossly intact Neck: Supple Respiratory: Clear to auscultation bilaterally, normal respiratory effort Cardiovascular: Some low-grade tachycardia on auscultation GI: Soft, nontender, nondistended Extremities: No edema Musculoskeletal: Moving all extremities except left lower extremity due to pain Neuro: No overt focal neurological deficits Skin: No rashes appreciated Psych: Cooperative Results Lab / Micro Data 02/15/25 13:21 02/15/25 13:21 Labs: Laboratory Results - last 24 hr 02/15/25 13:21: WBC 9.1, RBC 2.71 L, Hgb 8.7 L, Hct 24.0 L, MCV 88.6, MCH 32.1 H, MCHC 36.3 H, RDW Std Deviation 42.4, RDW Coeff of Cody 14.1, Plt Count 258, MPV9.6, Immature Gran % (Auto) 0.300, Neut % (Auto) 50.2, Lymph % (Auto) 38.6, Stone% (Auto) 8.7, Eos % (Auto) 1.8, Baso % (Auto) 0.4, Absolute Neuts (auto) 4.6, Absolute Lymphs (auto) 3.52, Nucleated RBC % 0, Sodium 133, Potassium 3.7, Chloride 100, Carbon Dioxide 18.1 L, Anion Gap 15, BUN 19, Creatinine 0.76, Estim Creat Clear Calc 50.65, Est GFR (MDRD) Non-Af 80, BUN/Creatinine Ratio 25.3 H, Glucose 155 H, Calcium 8.7, Total Bilirubin 2.68 H, AST 33 H, ALT < 5, Alkaline Phosphatase 77, Total Protein 6.8, Albumin 3.0 L, Globulin 3.7, Albumin/Globulin Ratio 0.8 L 02/15/25 14:18: Urine Color Straw, Urine Clarity Clear, Urine pH 6.5, Ur Specific Winger 1.010, Urine Protein 30 H, Urine Glucose (UA) Normal, Urine Ketones 15 H, Urine Occult Blood 10 H, Urine Nitrite Negative, Urine Bilirubin Negative, Urine Urobilinogen 8 H, Ur Leukocyte Esterase Negative Imaging Radiology Impression Femur X-Ray 02/15/25 13:40 IMPRESSION: Comminuted impacted left intertrochanteric fracture. Reading Location: [facility] Hip/Pelvis X-Ray 02/15/25 13:40 IMPRESSION: Comminuted impacted left intertrochanteric fracture. Reading Location: [facility] Assessment & Plan Assessment/Plan (1) Hip fracture: PLAN: Plan # Inability to ambulate after fall secondary to left-sided hip fracture - Hip and pelvis x-ray demonstrated comminuted impacted left intertrochanteric fracture -Ortho consult - PT/OT -Case management consult -Pain control/supportive care # Anemia -Appears baseline is in the 10-11 range -Hemoglobin 8.7 today, no reported history of bleeding -Will check iron panel and reticulocyte count - Will check direct bilirubin given bili is also elevated as well as LDH and haptoglobin -May need to consider fecal occult or further workup pending trends -Repeat in the a.m. or sooner if any new concerns for bleeding #Type 2 diabetes mellitus -Previously diagnosed with diabetes, does not appear to be on any oral hypoglycemics anymore, check A1c, glucose checks sliding scale insulin #Hypothyroidism -With surgery for removal or at the very least partial removal - Does not appear to be on replacement anymore - Will check TSH # Parkinson's disease - continue home Sinemet - supportive care #Hypertension - Blood pressure in the ED initially only 105/74, will hold home antihypertensives given blood pressures already on the low end and will leave her room for pain control -Can add back home medication as tolerated #DVT ppx: SCDs Lakeshia Mas MD Charges/Coding Visit Charges Inpatient E&M: 16191 Init Hosp L2 02/15/25 1505 <Electronically signed by Lakeshia Mas MD> Cosigner Signature (if applicable): CC: Dr. Lakeshia aMs MD; Dr. Bebeto Santana MD~ Signed [facility] Work Phone: Reason for referral (narrative)No reason for referral information availableWHarrison Community Hospital Work Phone: Summary Purpose Family History Relationship Condition Age at Onset Recorded Date/T callie father Myocardial infarction Unknown sister Malignant neoplasm of breast Unknown Relationship Condition Age at Onset Recorded Date/T callie father Myocardial infarction Unknown Hypertension Unknown Cardiac disease Unknown sister Malignant neoplasm of breast Unknown mother Cerebrovascular accident (CVA) Unknown Advance Directives Advance Directive Response Recorded Date/ Time Living Will No May 12, 2020 4:41am Power of Straight Slicing Machine Operator No April 4:41am Advance Directive Response Recorded Date/ Time Living Will No March 20, 2022 2:13am Power of Straight Slicing Machine Operator No March 20 2 2:13am Advance Directive Response Recorded Date/ Time Living Will No March 20, 2022 6:32am Power of Straight Slicing Machine Operator No March 20 2 6:32am Advance Directive Response Recorded Date/ Time Living Will No March 20, 2022 5:32am Power of Straight Slicing Machine Operator No March 20 5:32am Advance Directive Response Recorded Date/ Time Living Will No November 20, 2022 12:16pm Power of Straight Slicing Machine Operator No November 20 12:16pm Advance Directive Response Recorded Date/ Time Living Will No November 20, 2022 11:16am Power of Straight Slicing Machine Operator No November 20 11:16am Advance Directive Response Recorded Date/ Time Do you have a Healthcare Power of Straight Slicing Machine Operator? No February 15, 2025 1:15pm Chief Complaint and Reason for Visit Chief Complaint GENERAL ILLNESS ACUTE CHOLEDOCHOLITHIASIS, ACUTE PANCREATITIS Reason for Visit Acute gallstone panc reatitis Choledocholithiasis Pancreatitis UTI (urinary tract infection) Chief Complaint GENERAL ILLNESS ACUTE CHOLEDOCHOLITHIASIS, ACUTE PANCREATITIS ACUTE CHOLEDOCHOLITHIASIS, ACUTE PANCREATITIS Reason for Visit Acute gallstone panc reatitis Choledocholithiasis Pancreatitis UTI (urinary tract infection) Chief Complaint GENERAL ILLNESS ACUTE CHOLEDOCHOLITHIASIS, ACUTE PANCREATITIS ACUTE CHOLEDOCHOLITHIASIS, ACUTE PANCREATITIS ACUTE CHOLEDOCHOLITHIASIS, ACUTE PANCREATITIS Reason for Visit Acute gallstone panc reatitis Choledocholithiasis Pancreatitis UTI (urinary tract infection) Chief Complaint GENERAL ILLNESS ACUTE CHOLEDOCHOLITHIASIS, ACUTE PANCREATITIS ACUTE CHOLEDOCHOLITHIASIS, ACUTE PANCREATITIS ACUTE CHOLEDOCHOLITHIASIS, ACUTE PANCREATITIS H FU Reason for Visit Acute gallstone panc reatitis Choledocholithiasis Pancreatitis UTI (urinary tract infection) Bronchitis Choledocholithiasis Chief Complaint H FU 3 MO FU Reason for Visit Bronchitis Choledocholithiasis Bronchitis Choledocholithiasis Chief Complaint 3 MO FU Reason for Visit Bronchitis Choledocholithiasis Chief Complaint 3 MO FU EKG 2 WK FU DUE ON OR AROUND DATE LISTED Reason for Visit Bronchitis Bronchitis Constipation Chief Complaint EKG 2 WK FU DUE ON OR AROUND DATE LISTED Reason for Visit Bronchitis Constipation Chief Complaint Admit Date LEFT HIP FRACTURE February 15, 2025 2:56 pm Reason for Visit Admit Date Fall February 15, 2025 2:56 pm Hip fracture February 15, 2025 2:56 pm Additional Source Comments INFORMATION SOURCE (unrecogn ized section and content) DATE CREATED AUTHOR 02/08/2018 [employer] DATE CREATED AUTHOR AUTHOR'S ORGANIZ ATION 02/16/2018 [employer] DATE CREATED AUTHOR AUTHOR'S ORGANIZ ATION 02/16/2018 [facility] DATE CREATED AUTHOR AUTHOR'S ORGANIZ ATION 01/04/2025 [facility] Goals (unrecognized section and content) Goals may be documented in a n alternate sectionGoals may be documented in an alternate sectionGoals may be documented in an alternate sectionGoals may be documented in an alternate sectionGoals may be documented in an alternate sectionGoals may be documented in an alternate sectionGoals may be documented in an alternate sectionGoals may be documented in an alternate section Care Teams (unrecognized sec tion and content) Team Status: Active Member Role Status Dates Dr. Bebeto Santana MD Primary Care Provider Active Team Status: Inactive Member Role Status Dates Dr. Bebeto Santana MD Primary Care Provider Active Start: December 27, 2024 End: December 27, 2024 Dr. Bebeto Santana MD Attending Provider Active Start: December 27, 2024 End: December 27, 2024 Dr. Bebeto Santana MD Referring Provider Active Start: December 27, 2024 End: December 27, 2024 Team Status: Active Member Role Status Dates Dr. Bebeto Santana MD Primary Care Provider Active Start: February 15, 2025 Dr. Abdirashid Cano DO Referring Provider Active Start: February 15, 2025 Dr. Abdirashid Cano DO Emergency Provider Active Start: February 15, 2025 Dr. Lakeshia Mas MD Admit Provider Active Star t: February 15, 2025 Dr. Lakeshia Mas MD Attending Provider Active Start: February 15, 2025 Team Status: Active Member Role Status Dates Dr. Bebeto Santana MD Family Provider Active Dr. Bebeto Santana MD Primary Care Provider Active Team Status: Inactive Member Role Status Dates Dr. Bebeto Santana MD Primary Care Provider, Referring Provider Active Dr. Antony Tran DO Attending Provider Active Team Status: Inactive Member Role Status Dates Dr. Bebeto Santana MD Primary Care Provider, Attending Provider Active Team Status: Inactive Member Role Status Dates Dr. Bebeto Santana MD Primary Care Provider Active Bebeto Santana MD Attending Provider Active Team Status: Active Member Role Status Dates Dr. Bebeto Santana MD Primary Care Provider, Referring Provider Active Dr. Antony Tran DO Attending Provider, Other Prov ider Active Team Status: Inactive Member Role Status Dates Dr. Bebeto Santana MD Primary Care Provider Active Bebeto FORD MD Attending Provider Active Team Status: Active Member Role Status Dates Dr. Bebeto Santana MD Primary Care Provider Active Dr. Sergo Chaney MD Attending Provider Active Dr. Antony Tran DO Referring Provider Active Team Status: Inactive Member Role Status Dates Dr. Bebeto Santana MD Primary Care Provider Active Start: September 25, 2024 End: September 25, 2024 Dr. Bebeto Santana MD Attending Provider Active Start: September 25, 2024 End: September 25, 2024 Dr. Bebeto Santana MD Referring Provider Active Start: September 25, 2024 End: September 25, 2024 Team Status: Inactive Member Role Status Dates Dr. Bebeto Santana MD Primary Care Provider Active Start: December 27, 2024 End: December 27, 2024 Dr. Bebeto Santana MD Attending Provider Active Start: December 27, 2024 End: December 27, 2024 Dr. Bebeto Santana MD Referring Provider Active Start: December 27, 2024 End: December 27, 2024 Team Status: Active Member Role Status Dates Dr. Bebeto Santana MD Primary Care Provider Active Team Status: Active Member Role Status Dates Dr. Bebeto Santana MD Primary Care Provider Active Start: February 15, 2025 Dr. Abdirashid Cano DO Referring Provider Active Start: February 15, 2025 Dr. Abdirashid Cano DO Emergency Provider Active Start: February 15, 2025 Dr. Lakeshia Mas MD Admit Provider Active Star t: February 15, 2025 Dr. Lakeshia Mas MD Attending Provider Active Start: February 15, 2025 FOR RECORDS PERTAINING TO PATIENTS WHO ARE [...] BE BASED ON THE PRIMARY CLINICAL RECORDS. [facility] [employer] provides no warranty or guarantee of the accuracy or completeness of information in this document.
[2025-02-16] VITALS (22 sets, daily range): BP systolic 77–143; BP diastolic 53–82; PULSE 58–120; RESP 16–18; TEMP 36.2–37.3; O2SAT 94–100
[2025-02-16 05:27] LABS: Hematocrit 24.1 % (37-47); Hemoglobin 8.7 g/dL (12.0-15.0); Immature Granulocytes Count 0.040 X10^3/uL (0.0-0.0); Mean Corp Hgb Conc 36.1 g/dL (32-36); Mean Corpuscular Volume 88.9 fL (81-99); Mean Platelet Vol. 9.5 fl (6.2-12.0); NRBC Flagged by Analyzer 0 % (0-5); Platelet Count 297 K/mm3 (150-450); RBC Distribution Width CV 14.4 % (11.6-14.6); RBC Distribution Width SD 43.8 fl (35.1-43.9); Red Blood Count 2.71 M/mm3 (4.2-5.4); White Blood Count 9.6 K/mm3 (4.4-11.0)
[2025-02-16 05:42] LABS: Prothrombin Time (Protime)PT. 14.6 SECONDS (11.7-14.9)
[2025-02-16 05:43] LABS: Partial Thromboplast Time 31.5 Seconds (24.1-36.2)
[2025-02-16 06:22] LABS: AST(SGOT) 34 U/L (<=31); Alanine Aminotransfer ALT/SGPT < 5 U/L (<=34); Albumin, Serum 3.0 g/dL (3.4-4.8); Alkaline Phosphatase 89 U/L (35-104); Anion Gap 12 (5-15); BUN 22 mg/dL (4-19); BUN/Creat Ratio 28.4 RATIO (10-20); Calcium,Total 8.9 mg/dL (7.6-11.0); Carbon Dioxide 19.9 mmol/L (21.0-32.0); Chloride 102 mmol/L (98-108); Estimated Creatinine Clearance 44.44 ml/min (50-250); Globulin 3.6 g/dL (2.2-4.2); Glucose 155 mg/dL (70-99); Potassium 3.6 mmol/L (3.3-5.1)
--- NOTE | 2025-02-16 07:50 | PN.HOSP_ITS ---
Reason for Visit Reason for Visit: Diagnoses Fracture of unspecified part of neck of unspecified femur, initial encounter for closed fracture (02/15/25) Subjective Subjective Feeling well postop. Was ordered 2 units of blood from the heart. First is already finished transfusing patient unit ordered. No shortness of breath. Objective Data Objective Data Vital Signs: Vital Signs Temp Pulse Resp BP Pulse Ox O2 Del Method O2 Flow Rate 36.2 C L 58 L 16 110/66 100 Nasal Cannula 2 02/16/25 03:44 02/16/25 03:44 02/16/25 03:44 02/16/25 03:44 02/16/25 03:44 02/16/25 03:44 02/16/25 03:44 Oxygen Flow Rate (L/min) 2 Oxygen Delivery Method Nasal Cannula Weight: 57.289 kg Body Mass Index (BMI) 23.8 Intake & Output: Intake and Output for Last 24 Hours 02/14/25 02/15/25 02/16/25 23:59 23:59 23:59 Intake Total 1130 / 1130 Output Total 700 / 950 300 / 300 Balance 430 / 180 -300 / -300 Lab / Micro Data 02/16/25 04:57 02/16/25 04:57 Labs: Laboratory Results - last 24 hr 02/15/25 13:21: WBC 9.1, RBC 2.71 L, Hgb 8.7 L, Hct 24.0 L, MCV 88.6, MCH 32.1 H , MCHC 36.3 H, RDW Std Deviation 42.4, RDW Coeff of [place] 14.1, Plt Count 258, MPV 9.6, Immature Gran % (Auto) 0.300, Neut % (Auto) 50.2, Lymph % (Auto) 38.6, Carbon % (Auto) 8.7, Eos % (Auto) 1.8, Baso % (Auto) 0.4, Absolute Neuts (auto) 4.6, Absolute Lymphs (auto) 3.52, Nucleated RBC % 0, Sodium 133, Potassium 3.7, Chloride 100, Carbon Dioxide 18.1 L, Anion Gap 15, BUN 19, Creatinine 0.76, Estim Creat Clear Calc 50.65, Est GFR (MDRD) Non-Af 80, BUN/Creatinine Ratio 25.3 H, Glucose 155 H, Calcium 8.7, Iron 62, TIBC 197 L, Iron Saturation 32.0, U nsaturated IBC 135 L, Ferritin 150, Total Bilirubin 2.68 H, Direct Bilirubin 1.15 H, AST 33 H, ALT < 5, Alkaline Phosphatase 77, Lactate Dehydrogenase 247 H, Total Protein 6.8, Albumin 3.0 L, Globulin 3.7, Albumin/Globulin Ratio 0.8 L, Blood Type O POSITIVE, Antibody Screen NEGATIVE 02/15/25 14:18: Urine Color Straw, Urine Clarity Clear, Urine pH 6.5, Ur Specific [place] 1.010, Urine Protein 30 H, Urine Glucose (UA) Normal, Urine Ketones 15 H, Urine Occult Blood 10 H, Urine Nitrite Negative, Urine Bilirubin Negative, Urine Urobilinogen 8 H, Ur Leukocyte Esterase Negative, Urine RBC 0-5 SEEN, Urine WBC 0-5 SEEN, Ur Squamous Epith Cells 5-10 SEEN, Urine Bacteria 0 SEEN, Urine Mucus 0 SEEN 02/15/25 16:16: POC Glucose 148 H 02/15/25 21:12: Retic Count 4.81 H, Immature Retic Fraction 12.50, Retic Hgb Equivalent 35.7 H 02/16/25 04:57: WBC 9.6, RBC 2.71 L, Hgb 8.7 L, Hct 24.1 L, MCV 88.9, MCH 32.1 H , MCHC 36.1 H, RDW Std Deviation 43.8, RDW Coeff of [place] 14.4, Plt Count 297, MPV 9.5, Immature Gran % (Auto) 0.400, Neut % (Auto) 60.6, Lymph % (Auto) 27.3, Carbon % (Auto) 9.3, Eos % (Auto) 1.9, Baso % (Auto) 0.5, Absolute Neuts (auto) 5.8, Absolute Lymphs (auto) 2.62, Nucleated RBC % 0, PT 14.6, INR 1.1, APTT 31.5, Sodium 133, Potassium 3.6, Chloride 102, Carbon Dioxide 19.9 L, Anion Gap 12, B UN 22 H, Creatinine 0.77, Estim Creat Clear Calc 44.44 L, Est GFR (MDRD) Non-Af 80, BUN/Creatinine Ratio 28.4 H, Glucose 155 H, Hemoglobin A1c 7.3 H, Calcium 8.9, Total Bilirubin 1.96 H, AST 34 H, ALT < 5, Alkaline Phosphatase 89, Total Protein 6.6, Albumin 3.0 L, Globulin 3.6, Albumin/Globulin Ratio 0.8 L, TSH 7.490 H 02/16/25 05:53: POC Glucose 151 H Radiography Diagnostic Testing: Radiology Impression Femur X-Ray 02/15/25 13:40 IMPRESSION: Comminuted impacted left intertrochanteric fracture. Reading Location: [facility] Hip/Pelvis X-Ray 02/15/25 13:40 IMPRESSION: Comminuted impacted left intertrochanteric fracture. Reading Location: [facility] Physical Exam Const alert and no apparent distress Constitutional Narrative: Up in chair. Nontoxic. No respiratory distress. Not requiring any oxygen. Resp normal respiratory effort, no retractions, no use of accessory muscles and clear to auscultation bilaterally Cardio regular rate, regular rhythm, S1 normal heart sound and S2 normal heart sound GI normal to inspection, nondistended, normoactive bowel sounds, soft to palpation, non-tender and non-distended Extremity Extremity Narrative: Surgical sites bandaged with 2 noncontinuous sites. No ecchymosis appreciated. No surrounding erythema. Assessment & Plan Assessment/Plan (1) Hip fracture: PLAN: left hip fracture Patient underwent a left femur cephalomedullary nailing with long gamma nail. ORIF. I ordered a 25-OH d level. The level was low at 10.7. Will start ergocalciferol. Bed rest. PLAN: Plan anemia: Estimated blood loss during surgery was 150 cc. 2 units of red blood cells have been ordered. Will follow-up CBC in the morning. DM2: a1c 7.3. SSI. Parkinson's disease: on carbidopa/levodopa Elevated TSH with a TSH 7.49, free T4 was normal at 1.1. No need for replacement at this time. VTE prophylaxis: SCDs. Charges/Coding Visit Charges Inpatient E&M: 26933 Subs Hosp L2
--- NOTE | 2025-02-16 08:00 | RAD_ITS ---
PROCEDURE: HIP MIN 2 VIEWS (PORTABLE); O.R. FLUORO FOR C-ARM 02/16/2025 REASON FOR EXAM: ORIF LT HIP GAMMA NAIL TECHNIQUE: Intraoperative fluoroscopy was performed for fracture fixation of the proximal left femur. A total of 24 fluoroscopic images were obtained. Fluoroscopy time: 93.3 seconds. Dose: 15.02 mGy COMPARISON: Left hip and pelvis study of 02/15/2025. RAD/Hip Min 2 Views (Portable) IMPRESSION: Intraoperative fluoroscopy was performed for fracture fixation of the proximal left femur. A total of 24 fluoroscopic images were obtained. Reading Location: [place] [id number]
--- NOTE | 2025-02-16 08:00 | RAD_ITS ---
PROCEDURE: HIP MIN 2 VIEWS (PORTABLE); O.R. FLUORO FOR C-ARM 02/16/2025 REASON FOR EXAM: ORIF LT HIP GAMMA NAIL TECHNIQUE: Intraoperative fluoroscopy was performed for fracture fixation of the proximal left femur. A total of 24 fluoroscopic images were obtained. Fluoroscopy time: 93.3 seconds. Dose: 15.02 mGy COMPARISON: Left hip and pelvis study of 02/15/2025. RAD/O.R. Fluoro for C-Arm IMPRESSION: Intraoperative fluoroscopy was performed for fracture fixation of the proximal left femur. A total of 24 fluoroscopic images were obtained. Reading Location: [place] [id number]
[2025-02-16] MEDS: Lactated Ringers 1,000 ML 15 ML IV (08:15)
--- NOTE | 2025-02-16 08:36 | PCM.PRE.AN2 ---
ASA Classification* ASA Classification ASA Classification: 3 Assessment & Plan Anesthesia* Anesthesia Assessment Anesthesia Assessment: Discussed sedation and/or anesthesia options, risks, benefits, and alternatives with patient/parents/legal guardian/POA. Questions invited. The patient/parents/legal guardian/POA seems to understand and agrees to proceed with anesthesia plan. Reviewed the physical assessment, medical history, allergy history and patient home medications list prior to surgery/procedure/anesthetic and documented any changes. Performed airway and anesthesia risk assessments. Anesthesia Type Anesthesia Type: General History Source History Obtained from:: Patient and Chart Anesthesia Focused Assessment* Temperature: 97.1 F Pulse Rate: 58 Blood Pressure: 110/66 Respiratory Rate: 16 Pulse Ox: 100 Oxygen Delivery Method: Room Air Oxygen Flow Rate (L/min): 2 Airway Assessment Mouth opens: >3 cm Mallampati Score: III Teeth Condition: Missing (Multiple missing teeth) Neck Range of motion (ROM): Limited ROM (Slight decrease in extension) Labs Anesthesia Preop lab: CBC WBC 9.6 K/mm3 (4.4-11.0) 02/16/25 04:57 02/16/25 RBC 2.71 M/mm3 (4.2-5.4) L 02/16/25 04:57 02/16/25 Hgb 8.7 g/dL (12.0-15.0) L 02/16/25 04:57 02/16/25 Hct 24.1 % (37-47) L 02/16/25 04:57 02/16/25 Plt Count 297 K/mm3 (150-450) 02/16/25 04:57 02/16/25 CHEMISTRY Potassium 3.6 mmol/L (3.3-5.1) 02/16/25 04:57 02/16/25 Sodium 133 mmol/L (133-145) 02/16/25 04:57 02/16/25 Magnesium 2.0 mg/dL (1.6-2.6) 03/20/22 03:03 03/20/22 BUN 22 mg/dL (4-19) H 02/16/25 04:57 02/16/25 Creatinine 0.77 mg/dL (0.70-1.20) 02/16/25 04:57 02/16/25 Glucose 155 mg/dL (70-99) H 02/16/25 04:57 02/16/25 POC Glucose 151 mg/dL (74-106) H 02/16/25 05:53 02/16/25 TSH 7.490 uIU/mL (0.300-4.200) H 02/16/25 04:57 02/16/25 COAG PT 14.6 SECONDS (11.7-14.9) 02/16/25 04:57 02/16/25 Pre-Assessment Diagnosis/Proposed Procedure Planned Operative Procedure(s): Left hip ORIF. Gamma nail. 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 When Was Last Pacemaker Check QUESTION #4 FULL TEXT: You/Your Family Experience fever (hyperthermia) with Anesthesia Last Oral Intake Last Oral intake: Last Oral Intake NPO since Meds taken in AM with sips of water? Meds patient instructed to take am of surgery Any additional information?: Yes NPO since: 00:00 PONV PONV - capital equipment specialist: PONV - capital equipment specialist Female HX of Motion Sickness HX of N/V After Surgery Non-Smoker Duration of Surgery greater than 60 minutes Number of Risk Factors PONV Score Height & Weight Height & Weight: Anesthesia: Height & Weight Height 5 ft 1 in 02/15/25 16:04 Weight: 57.289 kg 02/15/25 16:04 Body Mass Index (BMI) 23.8 02/15/25 16:04 Respiratory Assessment Respiratory Assessment - capital equipment specialist: Respiratory Tract Infection Hx - capital equipment specialist Hx Respiratory Tract Infection No 02/16/25 00:28 STOP Sleep Apnea STOP Sleep Apnea - capital equipment specialist: STOP Sleep Apnea - capital equipment specialist Hx Hypertension Yes: CONTROLLED WITH MED 02/15/25 16:04 Hx Sleep Apnea No 02/15/25 16:04 CPAP BIPAP Do you snore loudly (louder Yes 02/15/25 16:04 than talking or can be heard Do you often feel tired/ Yes 02/15/25 16:04 fatigued/ sleepy during daytime? Has anyone observed you stop No 02/15/25 16:04 breathing during sleep? STOP Results Positive 02/15/25 16:04 QUESTION #5 FULL TEXT : Do you snore loudly (louder than talking or can be heard through closed doors)? 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 Specify any problems Hx of Preganancy in last 3 N/A 02/15/25 16:04 Months Nurse Filling Out Transfusion FSTEINER 02/15/25 16:04 & Questions: Date: 02/15/25 02/15/25 16:04 Time: 16:06 02/15/25 16:04 Patient unable to answer at this time (ie. confused, unrespo /Reproduction History /Reproductive History - capital equipment specialist: /Reproductive Hx- capital equipment specialist Hx Now Gestational Age (in weeks): EDC: Hx Hx Para Hx Section SAB No 11/20/22 12:16 Active Medications Active Medications: Current Medications Generic Name Dose Route Start Last Admin Trade Name Freq PRN Reason Stop Dose Admin Acetaminophen 1,000 mg 02/15/25 22:00 02/16/25 05:38 Acetaminophen 500 Mg Tablet PO 1,000 mg Q8 GIORGI Administration Albuterol Sulfate 2.5 mg 02/15/25 16:01 Albuterol 2.5 Mg/3 Ml Vial.Neb. INHALATION Q2H PRN PRN SOB &/OR WHEEZING Carbidopa/Levodopa 1 tablet 02/15/25 22:00 02/16/25 05:38 Carbidopa/Levodopa 25/100 Tablet PO 1 tablet TID GIORGI Administration Glucagon 1 mg 02/15/25 16:01 Glucagon 1 Mg/Ml Syringe IM X1 PRN HYPOGLYCEMIA Protocol Dextrose 250 mls @ 0 mls/hr 02/15/25 16:01 Dextrose 10%-Water IV .Q0M PRN HYPOGLYCEMIA Protocol As Directed Sodium Chloride 250 mls @ 15 mls/hr 02/15/25 16:08 IV .[id number] PRN Saline Flush Sodium Chloride 250 mls @ 15 mls/hr 02/15/25 16:08 IV .[id number] PRN Additional IVPB Infusion Lactated Ringer's 1,000 mls @ 15 mls/hr 02/16/25 08:15 02/16/25 08:15 IV 15 mls/hr .Q48H GIORGI Administration Insulin Human Lispro 0 unit 02/15/25 16:01 02/16/25 05:58 Insulin Lispro 100 Unit/Ml Insuln.Pen SC 1 units TIDAC GIORGI Administration Protocol Ketorolac Tromethamine 15 mg 02/15/25 16:01 Ketorolac 15 Mg/Ml Vial IV 02/20/25 16:01 Q6H PRN PRN Pain Score 1-10 Melatonin 10 mg 02/15/25 16:01 Melatonin 10 Mg Tablet PO QHS PRN PRN INSOMNIA Morphine Sulfate 2 mg 02/15/25 16:01 Morphine 2 Mg/Ml Syringe IV Q3H PRN PRN Pain Score 6-10 Nutritional Formula (Lactose Free) 120 ml 02/16/25 10:00 02/16/25 07:25 Glucerna Shake 120 Ml Liquid PO Not Given 4X/DAY GIORGI Ondansetron HCl 4 mg 02/15/25 16:01 Ondansetron 4 Mg/2 Ml Vial IV Q8H PRN PRN NAUSEA/VOMITING Oxycodone HCl 5 mg 02/15/25 16:01 Oxycodone 5 Mg Tablet PO Q4H PRN PRN Pain Score 4-10 Senna/Docusate Sodium 2 tablet 02/15/25 22:00 02/16/25 07:25 Senna/Docusate Sodium 1 Tablet PO Not Given BID GIORGI Sodium Chloride 10 - 40 ml 02/15/25 16:08 0.9% Saline Lock 10 Ml Syringe IV UD PRN SALINE FLUSH PFSH Medical History Hyperthyroidism Rheumatoid arthritis Kidney stones Asthma Irregular heart beat Chest pain Migraines Parkinson's disease Wears glasses Rash Thyroid disease Diabetes Arthritis Restless legs Syncope Dietary restriction Non-smoker Leg cramps Hypertension Chronic anemia Hypothyroidism Diabetes mellitus, type 2 Hypertension Home Medications ?Medication ?Instructions ?Recorded ?Last Taken ?Type carbidopa 25 mg-levodopa 100 mg 1 tab PO TID 02/15/25 02/15/25 History tablet losartan 50 mg tablet 50 mg PO DAILY 02/15/25 02/15/25 History Allergy/AdvReac Type Severity Reaction Status Date / Time Penicillins Allergy Intermediate Hives Verified 02/15/25 13:14 Family History Father Myocardial infarction Hypertension Heart disease Sister Breast cancer Mother CVA (cerebral vascular accident) Surgical History Hx of right cataract extraction Hx of left cataract extraction Hx of esophagogastroduodenoscopy Hx of colonoscopy History of ERCP S/P tubal ligation History of thoracic surgery H/O thyroidectomy History of cholecystectomy Hx of appendectomy Social History household members: other details: with son Smoking Status: Never smoker alcohol intake: never substance use type: does not use what type of physical activity do you participate in: none do you feel safe at home: Yes Review of Systems (Anesthesia) ROS Narrative System reviewed and no additional complaints, except as documented. Physical Exam Resp clear to auscultation bilaterally
--- NOTE | 2025-02-16 09:13 | CON.PCM.OR_ITS ---
HPI Consult Data Date of Consult: 02/16/25 HPI Narrative HPI Narrative: SHASHI OSWALD, is a 79 F who presents with left hip pain for a week after fall a week ago which was ground-level at home. She said that she fell on a deck and she tripped. She was unable to stand and walk by herself and she was carried by her son onto a chair and then she was laying down for a week. She refused to go to the hospital initially but since the pain worsened she came to the hospital yesterday. Prior to the fall she was able to ambulate without any ambulatory aid. She was mainly housebound elevated but did go some grocery runs. Denied any significant balance issues or limping prior to the fall. She is a known diabetic. Denies any blood thinners. She is anemic with hemoglobin 8.7. [facility] Medical History Hyperthyroidism Rheumatoid arthritis Kidney stones Asthma Irregular heart beat Chest pain Migraines Parkinson's disease Wears glasses Rash Thyroid disease Diabetes Arthritis Restless legs Syncope Dietary restriction Non-smoker Leg cramps Hypertension Chronic anemia Hypothyroidism Diabetes mellitus, type 2 Hypertension Home Medications ?Medication ?Instructions ?Recorded ?Last Taken ?Type carbidopa 25 mg-levodopa 100 mg 1 tab PO TID 02/15/25 02/15/25 History tablet losartan 50 mg tablet 50 mg PO DAILY 02/15/2501/22 History Allergy/AdvReac Type Severity Reaction Status Date / Time Penicillins Allergy Intermediate Hives Verified 02/15/25 13:14 Family History Father Myocardial infarction Hypertension Heart disease Sister Breast cancer Mother CVA (cerebral vascular accident) Surgical History Hx of right cataract extraction Hx of left cataract extraction Hx of esophagogastroduodenoscopy Hx of colonoscopy History of ERCP S/P tubal ligation History of thoracic surgery H/O thyroidectomy History of cholecystectomy Hx of appendectomy Social History household members: other details: with son Smoking Status: Never smoker alcohol intake: never substance use type: does not use what type of physical activity do you participate in: none do you feel safe at home: Yes Vital Signs Vital Signs Vital Signs: 02/15/25 13:11 02/15/25 15:00 02/15/25 15:32 Temperature 98.3 F 98.6 F Temperature Source Oral Pulse Rate 98 78 Pulse Strength Respiratory Rate 16 15 Respiratory Effort Respiratory Depth Respiratory Pattern Blood Pressure 105/74 113/66 113/66 Blood Pressure Mean 84 79 81 Blood Pressure Source Blood Pressure Position Blood Pressure Location Pulse Ox 100 100 100 Oxygen Delivery Method Room Air Oxygen Flow Rate (L/min) 02/15/25 16:04 02/15/25 16:09 02/15/25 19:45 Temperature 98.9 F Temperature Source Oral Pulse Rate 72 Pulse Strength Normal (2+) Respiratory Rate 12 Respiratory Effort Normal Non-Labored Respiratory Depth Normal Respiratory Pattern Normal Blood Pressure 98/53 L Blood Pressure Mean 68 Blood Pressure Source Monitor Blood Pressure Position Semi-Fowlers Blood Pressure Location Left Arm Pulse Ox 100 Oxygen Delivery Method Nasal Cannula Nasal Cannula Oxygen Flow Rate (L/min) 2 2 02/15/25 19:45 02/15/25 19:45 02/16/25 03:44 Temperature 99.1 F Temperature Source Temporal Pulse Rate 85 85 58 L Pulse Strength Respiratory Rate 16 16 16 Respiratory Effort Normal Non-Labored Normal Non-Labored Respiratory Depth Normal Normal Respiratory Pattern Normal Normal Blood Pressure 100/53 L Blood Pressure Mean 68 Blood Pressure Source Monitor Blood Pressure Position Semi-Fowlers Blood Pressure Location Left Arm Pulse Ox 99 99 100 Oxygen Delivery Method Nasal Cannula Nasal Cannula Nasal Cannula Oxygen Flow Rate (L/min) 2 2 2 02/16/25 03:44 02/16/25 08:45 Temperature 97.1 F L 97.1 F L Temperature Source Tympanic Pulse Rate 58 L 58 L Pulse Strength Respiratory Rate 16 16 Respiratory Effort Respiratory Depth Respiratory Pattern Blood Pressure 110/66 110/66 Blood Pressure Mean 80 Blood Pressure Source Monitor Blood Pressure Position Semi-Fowlers Blood Pressure Location Right Arm Pulse Ox 100 100 Oxygen Delivery Method Nasal Cannula Room Air Oxygen Flow Rate (L/min) 2 2 Weight Weight: 126 lb 4.8 oz Body Mass Index (BMI) 23.8 Physical Exam Narrative Patient with left hip shows significant pain and tenderness. Logrolling is painful. No significant is around the left knee joint and distally in the left lower extremity. Distal neurovascular exam is intact. Right lower extremity shows full painless range of motion throughout. Lab / Micro Data 02/16/25 04:57 02/16/25 04:57 Labs: Laboratory Results - last 24 hr 02/15/25 13:21: WBC 9.1, RBC 2.71 L, Hgb 8.7 L, Hct 24.0 L, MCV 88.6, MCH 32.1 H , MCHC 36.3 H, RDW Std Deviation 42.4, RDW Coeff of [place] 14.1, Plt Count 258, MPV 9.6, Immature Gran % (Auto) 0.300, Neut % (Auto) 50.2, Lymph % (Auto) 38.6, [place] % (Auto) 8.7, Eos % (Auto) 1.8, Baso % (Auto) 0.4, Absolute Neuts (auto) 4.6, Absolute Lymphs (auto) 3.52, Nucleated RBC % 0, Sodium 133, Potassium 3.7, Chloride 100, Carbon Dioxide 18.1 L, Anion Gap 15, BUN 19, Creatinine 0.76, Estim Creat Clear Calc 50.65, Est GFR (MDRD) Non-Af 80, BUN/Creatinine Ratio 25.3 H, Glucose 155 H, Calcium 8.7, Iron 62, TIBC 197 L, Iron Saturation 32.0, U nsaturated IBC 135 L, Ferritin 150, Total Bilirubin 2.68 H, Direct Bilirubin 1.15 H, AST 33 H, ALT < 5, Alkaline Phosphatase 77, Lactate Dehydrogenase 247 H, Total Protein 6.8, Albumin 3.0 L, Globulin 3.7, Albumin/Globulin Ratio 0.8 L, Blood Type O POSITIVE, Antibody Screen NEGATIVE 02/15/25 14:18: Urine Color Straw, Urine Clarity Clear, Urine pH 6.5, Ur Specific [place] 1.010, Urine Protein 30 H, Urine Glucose (UA) Normal, Urine Ketones 15 H, Urine Occult Blood 10 H, Urine Nitrite Negative, Urine Bilirubin Negative, Urine Urobilinogen 8 H, Ur Leukocyte Esterase Negative, Urine RBC 0-5 SEEN, Urine WBC 0-5 SEEN, Ur Squamous Epith Cells 5-10 SEEN, Urine Bacteria 0 SEEN, Urine Mucus 0 SEEN 02/15/25 16:16: POC Glucose 148 H 02/15/25 21:12: Retic Count 4.81 H, Immature Retic Fraction 12.50, Retic Hgb Equivalent 35.7 H 02/16/25 04:57: WBC 9.6, RBC 2.71 L, Hgb 8.7 L, Hct 24.1 L, MCV 88.9, MCH 32.1 H , MCHC 36.1 H, RDW Std Deviation 43.8, RDW Coeff of [place] 14.4, Plt Count 297, MPV 9.5, Immature Gran % (Auto) 0.400, Neut % (Auto) 60.6, Lymph % (Auto) 27.3, [place] % (Auto) 9.3, Eos % (Auto) 1.9, Baso % (Auto) 0.5, Absolute Neuts (auto) 5.8, Absolute Lymphs (auto) 2.62, Nucleated RBC % 0, PT 14.6, INR 1.1, APTT 31.5, Sodium 133, Potassium 3.6, Chloride 102, Carbon Dioxide 19.9 L, Anion Gap 12, B UN 22 H, Creatinine 0.77, Estim Creat Clear Calc 44.44 L, Est GFR (MDRD) Non-Af 80, BUN/Creatinine Ratio 28.4 H, Glucose 155 H, Hemoglobin A1c 7.3 H, Calcium 8.9, Total Bilirubin 1.96 H, AST 34 H, ALT < 5, Alkaline Phosphatase 89, Total Protein 6.6, Albumin 3.0 L, Globulin 3.6, Albumin/Globulin Ratio 0.8 L, TSH 7.490 H 02/16/25 05:53: POC Glucose 151 H Imaging Radiology Impression Femur X-Ray 02/15/25 13:40 IMPRESSION: Comminuted impacted left intertrochanteric fracture. Reading Location: [facility] Hip/Pelvis X-Ray 02/15/25 13:40 IMPRESSION: Comminuted impacted left intertrochanteric fracture. Reading Location: [facility] Assessment & Plan Assessment/Plan (1) Intertrochanteric fracture of left femur: QUALIFIERS: Encounter type: initial encounter Fracture type: c losed Fracture alignment: displaced Qualified Code(s): S72.142A - Displaced intertrochanteric fracture of left femur, initial encounter for closed fracture PLAN: Plan Reviewed x-rays done in the ER last night. Patient has a displaced intertrochanter fracture of the left femur with subtrochanteric extension. There is significant overlap and shortening. Discussed imaging findings with the patient. Explained to her that this is surgical injury and will require surgical fixation in order to allow early return to ambulatory function. I recommend open reduction internal fixation with long gamma nail. All risk benefits and alternatives were discussed in detail with the risks include but are not limited to infection, bleeding, injury to nerves and vessels, hematoma formation, need for further surgery, osiris- implant fracture, hardware failure, nonunion, malunion, need for further surgery, need for hyper basement, DVT, pulm embolism, pneumonia, atelectasis, cardiopulmonary event. Patient understands and agrees to proceed with surgery. Consent was signed. Charges/Coding Visit Charges Inpatient E&M: 24949 Init Hosp L3
[2025-02-16] MEDS: Clindamycin 900 MG in Dextrose 5%-Water (50mL Bag) 50 ML 150 MG IV (09:25)
[2025-02-16] MEDS: TXA 1000mg in NS100 100ml (IVPB at Incision) 660 MG IV (09:30)
[2025-02-16 09:58] LABS: Vitamin D,25 Hydroxy 10.7 ng/mL (30-100)
[2025-02-16] MEDS: TXA 1000mg in NS100 100ml (IVPB at Closure) 660 MG IV (11:55)
--- NOTE | 2025-02-16 12:48 | PCM.POST.ANE ---
Anesthesia: Postop Eval I Current Vital Signs Temperature: 99.2 F Pulse Rate: 98 Blood Pressure: 99/61 Respiratory Rate: 16 Pulse Ox: 100 Oxygen Delivery Method: Room Air Assessment Airway patent: Yes Spontaneous unlabored respirations: Yes Mental status: Awake and Calm nausea: No Vomiting: No Anesthesia Complication: No Fluid Hydration Crystalloid volume administer (ml): 2,400 Total IV fluid infused: 2,400 Progress Note Post-operative progress note: to receive 2 units of PRBCs, awaiting from blood bank, Dr. Zaman aware of units to be received and pressor requirements during case; currently weaned off and BP stable. Anesthesia document: Postop Eval 1 completed: Yes
--- NOTE | 2025-02-16 15:02 | OP.PCM_ITS ---
Procedures Musculoskeletal 20xxx-29xxx: Other Procedure See Report Operative Report (Standard) Operative Information Date of Procedure: 02/16/25 Pre-Operative Diagnosis: Left femur intertrochanteric fracture with subtrochanteric extension, displaced Post-Operative Diagnosis: Same Surgery/Procedure Performed: Left femur cephalomedullary nailing with long gamma nail, open reduction internal fixation presentation team member: Yes Commercial Drone Software Developer: Holden Delgadillo Tasks completed by music library assistant: Closing, Implanting device and Retracting Type of Anesthesia: General RN Documented Start/Stop Times: Operation Date: 02/16/25 09:00 Case Time Anesthesia Start 02/16/25 00:19 Into Pre-Op 02/16/25 07:56 Into Room 02/16/25 09:19 Procedure Start 02/16/25 10:03 Procedure End 02/16/25 12:22 Anesthesia End 02/16/25 12:33 Out of Room 02/16/25 12:33 Into Recovery 02/16/25 12:37 Out of Recovery 02/16/25 14:44 Procedure Start Time: 10:03 Procedure Stop Time: 12:22 Select all DRAINS/GRAFTS/IMPLANTS that apply: Implanted device Implanted device details: Daniel gamma 4 cephalomedullary nail Estimated Blood Loss: 150 cc Specimen collected: No Description of surgery: Operative Report Pre-operative Diagnosis: Left displaced intertrochanteric Femur Fracture with subtrochanteric extension Post-operative Diagnosis: Same Procedure(s) Performed: Left femur open reduction internal fixation, Cephalmedullary Nailing CPT 04419, modifier 22, old fracture requiring significant fracture debridement and difficult open reduction attempts Surgeon: Dr. Matt Chacon MD Sofa Back Upholsterer: None Estimated Blood Loss: 150 ml Anesthesia: General Drains: None Specimens: None Implants: Rives Gamma4 Trochanteric Nail 360 x 11 mm, 125 degree, 95 mm lag screw Complications: None Condition: stable Indications: 79-year-old lady who had a ground-level fall about a week ago and sustained a left displaced intertrochanteric femur Fracture with subtrochanteric extension. Patient stayed at home and did not seek medical attention after this fall and fracture and was bedridden for almost a week. We discussed the benefits and risks of the procedure including but not limited toinfection, bleeding, injury to nerves and vessels, limb length discrepancy, nonunion, malunion, hardware failure, osiris-implant fracture, hip and knee stiffness, persistent pain, difficulty to ambulate, DVT, pulmonary embolism, cardiopulmonary event, need for further surgeries. The patient concurred with the proposed plan, giving informed consent. Procedure Details: The patient was seen in the pre-operative preparation area. The site of surgery was verbally confirmed and marked by the surgical team. The patient was properly identified by the unique identifiers and was then at that time transported to the operative theater by [facility]. A Time Out was held and the above information confirmed. Both lower extremities were placed on the fracture table with the contralateral extremity extended down to allow C- arm to come in. Close reduction maneuver was attempted, but since the fracture was 1 week old and had severe overlap and shortening, adequate reduction and bony contact could not be achieved. Decision was made to open the fracture for open reduction at the fracture site. Operative area was prepped and draped in a sterile fashion. Final timeout was performed. With the help of C-arm incision was marked. About 3 inch incision was made laterally centering at the level of the fracture of the subtrochanteric region. Deep fascia was incised longitudinally. Vastus lateralis was split longitudinally and fracture site was exposed. Fracture surfaces were identified and curetted to remove any healing granulation tissue. Multiple reduction maneuvers using bone clamps, bone hook were utilized to allow for reduction at the fracture site. Due to the old fracture, it was difficult but adequate reduction was then achieved and held together with bone clamps. This was confirmed on both AP and lateral C-arm views. A 4 cm Incision was made proximal to the greater trochanter. An appropriate greater trochanter starting point was found using the starting wire under fluoroscopy. The wire was then drilled to the metadiaphyseal region of the femur. The opening reamer was then drilled into the metadiaphysis under fluoro. A ball tip guide wire was then placed down the femur. Sequential flexible reaming was performed up to 12.5 mm. Length of the long gamma nail was measured with the help of guidewire and measuring tool. 360 x 11 mm, 125 degree Gamma Nail was then placed into the intramedullary canal of the femur and placement was verified with fluoroscopy and advanced to an appropriate level to allow placement of the lag screw. Guidewire was removed. We then drilled the wire for the lag screw up the neck of the femur under fluoroscopic guidance. AP and lateral x-rays showed good positioning of the wire through the neck into the head with good tip apex distance. The wire was then measured. Cannulated drill was used to drill a channel for the lag screw and a 95 mm lag screw was placed up the neck of the femur. Fracture reduction was held throughout this process with clamps under visualization. Although the fracture reduction was not perfect, adequate bony contact was achieved and maintained. 2 distal static interlocking screws 40 mm and 42 mm in the proximal 2 of the distal 3 interlocking screw holes. Was placed with the help of the C-arm with perfect assin[place] and sioux technique. This was placed in the proximal end of the oblong hole. Final fluorscopic images were then taken and the placement of the intramedullary device and fracture was deemed appropriate. The wounds were irrigated copiously with sterile solution. Vastus lateralis and the deep fascia was closed with 0 vicryl suture in separate layers. The deep dermal layer was closed with 2-0 vicryl suture. Patillas were used to close the skin. Aquacel dressing was used, the incisions. The patient was then awaken, extubated and taken to the PACU. I was present and scrubbed for the entire procedure. Postoperative plan: Patient will be WBAT. Recommend PT/OT evaluation Pain Control F/u Outpatient in 2 weeks Surgical Findings: See operative note Complications Complications: No
--- NOTE | 2025-02-16 15:12 | CHAPLAIN ---
Type of Pastoral Visit ___ Initial Visit ___ Follow-up Visit ___ On-call Visit ___ General Patient Visit ___ Spiritual Assessment ___ Family Conference ___ Bereavement ___ Rapid Response ___ Code Blue ___ Other (describe below) Pastoral Care Referral From ___ Patient ___ Family ___ Nurse ___ Physician ___ Professor Of Education ___ Environmental Marketing Representative ___ Other (describe below) Sacrament/Intervention ___ Active listening ___ Anointing ___ Taoist ___ Bereavement ___ Communion ___ Jess exploration ___ ___ Life review ___ Prayer ___ Reconciliation ___ Sacrament of Sick ___ Supportive presence ___ Wedding ___ Other (describe below) Pastoral Comments patient and bed were out of the room; left a calling card
--- NOTE | 2025-02-16 15:28 | CHAPLAIN ---
Type of Pastoral Visit ___ Initial Visit ___ Follow-up Visit ___ On-call Visit ___ General Patient Visit ___ Spiritual Assessment ___ Family Conference ___ Bereavement ___ Rapid Response ___ Code Blue ___ Other (describe below) Pastoral Care Referral From ___ Patient ___ Family ___ Nurse ___ Physician ___ Powerplant Operator ___ Project Manager Retail ___ Other (describe below) Sacrament/Intervention ___ Active listening ___ Anointing ___ Hindu ___ Bereavement ___ Communion ___ Jess exploration ___ ___ Life review ___ Prayer ___ Reconciliation ___ Sacrament of Sick ___ Supportive presence ___ Wedding ___ Other (describe below) Pastoral Comments patient and bed are not in the room; left a calling card
[2025-02-16] MEDS: Ergocalciferol 1.25 MG (50, 000 UNIT) Capsule PO (17:02)
[2025-02-16] MEDS: Glucerna Shake 120 ML LIQUID PO (21:27)
[2025-02-17 00:51] VITALS: BP 129/52; PULSE 113; RESP 16; TEMP 36.8; O2SAT 100
[2025-02-17 05:04] VITALS: BP 102/43; PULSE 102; RESP 16; TEMP 37.1; O2SAT 97
[2025-02-17 06:13] LABS: Hematocrit 27.0 % (37-47); Hemoglobin 9.9 g/dL (12.0-15.0); Immature Granulocytes Count 0.060 X10^3/uL (0.0-0.0); Mean Corp Hgb Conc 36.7 g/dL (32-36); Mean Corpuscular Volume 85.2 fL (81-99); Mean Platelet Vol. 9.4 fl (6.2-12.0); NRBC Flagged by Analyzer 0 % (0-5); Platelet Count 247 K/mm3 (150-450); RBC Distribution Width CV 14.6 % (11.6-14.6); RBC Distribution Width SD 44.0 fl (35.1-43.9); Red Blood Count 3.17 M/mm3 (4.2-5.4); White Blood Count 10.0 K/mm3 (4.4-11.0)
[2025-02-17 06:42] LABS: Anion Gap 11 (5-15); BUN 17 mg/dL (4-19); BUN/Creat Ratio 28.5 RATIO (10-20); Calcium,Total 8.3 mg/dL (7.6-11.0); Carbon Dioxide 20.2 mmol/L (21.0-32.0); Chloride 105 mmol/L (98-108); Estimated Creatinine Clearance 44.44 ml/min (50-250); Glucose 157 mg/dL (70-99); Potassium 4.0 mmol/L (3.3-5.1)
--- NOTE | 2025-02-17 07:45 | PN.HOSP_ITS ---
Reason for Visit Reason for Visit: Inability to walk with left hip fracture Subjective Subjective Patient states she is feeling well. Anxious to get out of bed. Weightbearing status has been clarified. Anticipate will need discharge to SNF versus rehab. Patient has no significant complaints at this time and states that she feels better after her blood transfusion. Objective Data Objective Data Vital Signs: Vital Signs Temp Pulse Resp BP Pulse Ox O2 Del Method O2 Flow Rate 98.8 F 102 H 16 102/43 L 97 Room Air 2 02/17/25 05:04 02/17/25 05:04 02/17/25 05:04 02/17/25 05:04 02/17/25 05:04 02/17/25 05:04 02/16/25 08:45 Oxygen Flow Rate (L/min) 2 Oxygen Delivery Method Room Air Weight: 57.289 kg Body Mass Index (BMI) 23.8 Intake & Output: Intake and Output for Last 24 Hours 02/15/25 02/16/25 02/17/25 23:59 23:59 23:59 Intake Total 1130 / 1130 2964.25 / 2964.25 Output Total 700 / 950 1240 / 1240 800 / 800 Balance 430 / 180 1724.25 / 1724.25 -800 / -800 Lab / Micro Data 02/17/25 05:48 02/17/25 05:48 Labs: Laboratory Results - last 24 hr 02/15/25 13:21: Crossmatch See Detail 02/16/25 04:57: Haptoglobin 91, Vitamin D 25-Hydroxy 10.7 L, Free T4 1.10 02/16/25 16:22: POC Glucose 245 H 02/16/25 21:17: POC Glucose 250 H 02/17/25 05:48: WBC 10.0, RBC 3.17 L, Hgb 9.9 L, Hct 27.0 L, MCV 85.2, MCH 31.2, MCHC 36.7 H, RDW Std Deviation 44.0 H, RDW Coeff of Cody 14.6, Plt Count 247, MPV 9.4, Immature Gran % (Auto) 0.600, Neut % (Auto) 66.6, Lymph % (Auto) 22.0, [place] % (Auto) 10.3 H, Eos % (Auto) 0.3, Baso % (Auto) 0.2, Absolute Neuts (auto) 6.7, Absolute Lymphs (auto) 2.20, Nucleated RBC % 0, Sodium 136, Potassium 4.0, Chloride 105, Carbon Dioxide 20.2 L, Anion Gap 11, BUN 17, Creatinine 0.61 L, E stim Creat Clear Calc 44.44 L, Est GFR (MDRD) Non-Af 92, BUN/Creatinine Ratio 28.5 H, Glucose 157 H, Calcium 8.3 02/17/25 06:06: POC Glucose 159 H Radiography Diagnostic Testing: Radiology Impression C-Arm Fluoroscopy 02/16/25 08:00 IMPRESSION: Intraoperative fluoroscopy was performed for fracture fixation of the proximal left femur. A total of 24 fluoroscopic images were obtained. Reading Location: [place] [id number] Hip X-Ray 02/16/25 08:00 IMPRESSION: Intraoperative fluoroscopy was performed for fracture fixation of the proximal left femur. A total of 24 fluoroscopic images were obtained. Reading Location: [place] [address] Physical Exam Const alert, oriented x3, no apparent distress, average body habitus and well nourished Constitutional Narrative: Older, white female, sitting up in bed watching television, appears comfortable, nontoxic HEENT head/scalp atraumatic and moist oral mucous membranes Head and Scalp: normocephalic Resp normal respiratory effort, no retractions, no use of accessory muscles and clear to auscultation bilaterally Auscultation: Negative for rales, rhonchi or wheezes Cardio regular rate, regular rhythm, S1 normal heart sound, S2 normal heart sound, no murmurs, no rub, no gallops and no clicks GI normal to inspection, nondistended, normoactive bowel sounds, soft to palpation and non-tender Extremity no clubbing, cyanosis or edema Extremity Narrative: Pedal and radial pulses are 2+ Skin Skin Narrative: Incision left hip is clean dry intact with bandage in place and no bloody drainage on bandages Neuro oriented x3, moves all extremities and no focal motor deficits Neuro Narrative: Left-sided weakness due to pain Speech: speech normal Psych affect normal Psych Narrative: Extremely pleasant Assessment & Plan Assessment/Plan (1) Anemia: (2) Intertrochanteric fracture of left femur: QUALIFIERS: Encounter type: initial encounter Fracture type: c losed Fracture alignment: displaced Qualified Code(s): S72.142A - Displaced intertrochanteric fracture of left femur, initial encounter for closed fracture (3) Fall: (4) Constipation: (5) Occult blood in stools: (6) Vitamin D deficiency: PLAN: Plan Left intertrochanteric fracture - Postop day 1 left cephalomedullary nail with long gamma nail Secondary to suspected osteoporosis - Would recommend outpatient DEXA scan - Weightbearing as tolerated per orthopedic surgery - Long-term anticoagulation for DVT prophylaxis per orthopedic surgery with Eliquis - Will monitor CBC closely - Continue scheduled Tylenol and as needed oxycodone - PT/OT following - Anticipate discharge to SNF versus rehab--> case management/social media content manager following - Will need pre-CERT - If remains stable with regards to her labs tomorrow will be deemed medically ready for discharge at that time Acute anemia - Hemoccult was positive but patient is not anticoagulated at baseline and I do question whether or not this is potentially related to hemorrhoids as she does have constipation issues - Status post 2 units of packed red blood cells and hemoglobin is stable - Repeat CBC in the a.m. for stability - Okay with initiation of DVT prophylaxis with Eliquis per orthopedic surgery recommendations with close monitoring of hemoglobin - If further drop may need GI consultation but if stable will refer as an outpatient Vitamin D deficiency - Continue ergocalciferol as ordered DM-2 - Patient is diet controlled - most recent hemoglobin A1c was 7.3 - will transition diet to carb control Parkinson's disease - Continue home carbidopa levodopa Essential hypertension - Blood pressures are still somewhat soft postoperatively - Will continue to monitor need for antihypertensives as patient is on losartan at baseline - Restart losartan as medically appropriate Abnormal TSH - TSH was 7.49 with a normal free T4 at 1.1 - Euthyroid sick syndrome - Outpatient follow-up DVT prophylaxis - Apixaban 2.5 mg p.o. twice daily per orthopedic surgery CODE STATUS -Full code Charges/Coding Visit Charges Inpatient E&M: 06628 Subs Hosp L2
[2025-02-17] MEDS: Glucerna Shake 120 ML LIQUID PO ×4 (08:34→22:02)
[2025-02-17 10:54] VITALS: BP 126/65; PULSE 97; RESP 16; TEMP 37.2; O2SAT 96
--- NOTE | 2025-02-17 11:37 | PCM.PN.ORT ---
Subjective Subjective Postop day 1 status post left hip long gamma nail for IT plus subtrochanteric fracture. Patient doing well. Pain well-controlled. Denies any dizziness in sitting up. Had 2 units transfused yesterday, hemoglobin is up to the nines this morning Objective Data Objective Data Vital Signs: Vital Signs Temp Pulse Resp BP Pulse Ox O2 Del Method O2 Flow Rate 98.9 F 97 16 126/65 H 96 Room Air 2 02/17/25 10:54 02/17/25 10:54 02/17/25 10:54 02/17/25 10:54 02/17/25 10:54 02/17/25 10:54 02/16/25 08:45 Oxygen Flow Rate (L/min) 2 Oxygen Delivery Method Room Air Weight: 126 lb 4.8 oz Body Mass Index (BMI) 23.8 Intake & Output: Intake and Output for Last 24 Hours 02/15/25 02/16/25 02/17/25 23:59 23:59 23:59 Intake Total 1130 / 1130 2964.25 / 2964.25 Output Total 700 / 950 1240 / 1240 800 / 800 Balance 430 / 180 1724.25 / 1724.25 -800 / -800 Lab / Micro Data 02/17/25 05:48 02/17/25 05:48 Labs: Laboratory Results - last 24 hr 02/15/25 13:21: Crossmatch See Detail 02/16/25 04:57: Haptoglobin 91 02/16/25 16:22: POC Glucose 245 H 02/16/25 21:17: POC Glucose 250 H 02/17/25 05:48: WBC 10.0, RBC 3.17 L, Hgb 9.9 L, Hct 27.0 L, MCV 85.2, MCH 31.2, MCHC 36.7 H, RDW Std Deviation 44.0 H, RDW Coeff of [place] 14.6, Plt Count 247, MPV 9.4, Immature Gran % (Auto) 0.600, Neut % (Auto) 66.6, Lymph % (Auto) 22.0, [place] % (Auto) 10.3 H, Eos % (Auto) 0.3, Baso % (Auto) 0.2, Absolute Neuts (auto) 6.7, Absolute Lymphs (auto) 2.20, Nucleated RBC % 0, Sodium 136, Potassium 4.0, Chloride 105, Carbon Dioxide 20.2 L, Anion Gap 11, BUN 17, Creatinine 0.61 L, Estim Creat Clear Calc 44.44 L, Est GFR (MDRD) Non-Af 92, BUN/Creatinine Ratio 28.5 H, Glucose 157 H, Calcium 8.3 02/17/25 06:06: POC Glucose 159 H Radiography Diagnostic Testing: Radiology Impression C-Arm Fluoroscopy 02/16/25 08:00 IMPRESSION: Intraoperative fluoroscopy was performed for fracture fixation of the proximal left femur. A total of 24 fluoroscopic images were obtained. Reading Location: [facility]- Hip X-Ray 02/16/25 08:00 IMPRESSION: Intraoperative fluoroscopy was performed for fracture fixation of the proximal left femur. A total of 24 fluoroscopic images were obtained. Reading Location: [place] [address] Physical Exam Narrative Dressing?CDI. Distal neurovascular exam is intact in left lower extremity. Assessment & Plan Assessment/Plan (1) Intertrochanteric fracture of left femur: QUALIFIERS: Encounter type: initial encounter Fracture type: closed Fracture alignment: displaced Qualified Code(s): S72.142A - Displaced intertrochanteric fracture of left femur, initial encounter for closed fracture PLAN: Plan Postop day 1 status post left hip ORIF of IT plus subtrochanteric fracture with long gamma nailing. Patient doing well. Pain well-controlled. Weightbearing as tolerated. PT OT ambulation. Recommend starting DVT chemoprophylaxis with Eliquis, unless contraindicated. Discharge pending PT recommendations for rehab versus home.
--- NOTE | 2025-02-17 14:35 | CASEMGMT ---
Addendum entered by Zaira Peterson 02/17/25 15:47: Social Work SW did let pt know referral made to rehab, and SW will follow up on Wednesday. LAST Tyler Original Note: Social Work Referral made to Rehab for pt, SW will follow up Wednesday. RANDAL TylerS
[2025-02-17] MEDS: Clindamycin 600 MG/50 ML BAG 100 MG IV ×2 (15:10→22:43)
[2025-02-17] MEDS: 0.9% Normal Saline (250mL Bag) 250 ML 15 ML IV (16:36)
[2025-02-17 17:00] VITALS: BP 136/74; PULSE 95; RESP 17; TEMP 37; O2SAT 98
[2025-02-17 21:42] VITALS: BP 90/64; PULSE 86; RESP 17; TEMP 36.8; O2SAT 99
[2025-02-17] MEDS: 0.9% Saline Lock 10 ML Syringe IV ×3 (22:01→23:24)
[2025-02-17] MEDS: APIXABAN 2.5 MG TABLET (WCH) PO (22:01)
[2025-02-17] MEDS: MELATONIN 10 MG TABLET PO (22:03)
[2025-02-17 23:25] VITALS: BP 124/52; PULSE 66; RESP 18; TEMP 36.7; O2SAT 98
[2025-02-18 05:23] LABS: Hematocrit 26.8 % (37-47); Hemoglobin 9.6 g/dL (12.0-15.0); Immature Granulocytes Count 0.050 X10^3/uL (0.0-0.0); Mean Corp Hgb Conc 35.8 g/dL (32-36); Mean Corpuscular Volume 86.7 fL (81-99); Mean Platelet Vol. 9.4 fl (6.2-12.0); NRBC Flagged by Analyzer 0 % (0-5); Platelet Count 247 K/mm3 (150-450); RBC Distribution Width CV 15.3 % (11.6-14.6); RBC Distribution Width SD 45.9 fl (35.1-43.9); Red Blood Count 3.09 M/mm3 (4.2-5.4); White Blood Count 9.2 K/mm3 (4.4-11.0)
[2025-02-18 06:06] VITALS: BP 121/60; PULSE 94; RESP 17; TEMP 36.5; O2SAT 98
[2025-02-18] MEDS: 0.9% Saline Lock 10 ML Syringe IV (06:27)
[2025-02-18] MEDS: Clindamycin 600 MG/50 ML BAG 100 MG IV (06:35)
[2025-02-18 07:15] VITALS: O2SAT 97
--- NOTE | 2025-02-18 07:19 | PCM.PN.HOSP ---
Reason for Visit Reason for Visit: Left hip pain after fall Subjective Subjective Patient has no complaints. Awaiting acceptance at rehab and then will need pre-CERT. States her pain is well-controlled. Patient is having bowel movements and denies constipation. Objective Data Objective Data Vital Signs: Vital Signs Temp Pulse Resp BP Pulse Ox O2 Del Method O2 Flow Rate 97.7 F L 94 17 121/60 H 98 Room Air 2 02/18/25 06:06 02/18/25 06:06 02/18/25 06:06 02/18/25 06:06 02/18/25 06:06 02/18/25 06:06 02/16/25 08:45 Oxygen Flow Rate (L/min) 2 Oxygen Delivery Method Room Air Weight: 57.289 kg Body Mass Index (BMI) 23.8 Intake & Output: Intake and Output for Last 24 Hours 02/16/25 02/17/25 02/18/25 23:59 23:59 23:59 Intake Total 2964.25 / 2964.25 2907.75 / 2907.75 Output Total 1240 / 1240 1450 / 1450 200 / 200 Balance 1724.25 / 1724.25 1457.75 / 1457.75 -200 / -200 Lab / Micro Data 02/18/25 05:10 02/17/25 05:48 Labs: Laboratory Results - last 24 hr 02/17/25 11:43: POC Glucose 238 H 02/17/25 16:32: POC Glucose 192 H 02/17/25 22:00: POC Glucose 246 H 02/18/25 05:10: WBC 9.2, RBC 3.09 L, Hgb 9.6 L, Hct 26.8 L, MCV 86.7, MCH 31.1, MCHC 35.8, RDW Std Deviation 45.9 H, RDW Coeff of [place] 15.3 H, Plt Count 247, MPV 9.4, Immature Gran % (Auto) 0.500, Neut % (Auto) 63.7, Lymph % (Auto) 22.6, [place] % (Auto) 10.4 H, Eos % (Auto) 2.4, Baso % (Auto) 0.4, Absolute Neuts (auto) 5.8, Absolute Lymphs (auto) 2.07, Nucleated RBC % 0 02/18/25 06:25: POC Glucose 188 H Physical Exam Const alert, no apparent distress, average body habitus and well nourished Constitutional Narrative: Older, white female, sitting up in a chair at the bedside watching television, appears comfortable, nontoxic HEENT head/scalp atraumatic and moist oral mucous membranes Head and Scalp: normocephalic Resp normal respiratory effort, no retractions, no use of accessory muscles and clear to auscultation bilaterally Auscultation: Negative for rales, rhonchi or wheezes Cardio regular rate, regular rhythm, S1 normal heart sound, S2 normal heart sound, no murmurs, no rub, no gallops and no clicks GI normal to inspection, nondistended, normoactive bowel sounds, soft to palpation and non-tender Extremity no clubbing, cyanosis or edema Extremity Narrative: Pedal and radial pulses are 2+ Skin Skin Narrative: Incision left hip is clean dry intact with bandage in place and no bloody drainage on bandages Neuro moves all extremities and no focal motor deficits Neuro Narrative: Left-sided weakness due to pain Sensorium / Orientation: awake, alert, oriented to person and oriented to place Speech: speech normal Psych affect normal Psych Narrative: Extremely pleasant Assessment & Plan Assessment/Plan (1) Anemia: (2) Intertrochanteric fracture of left femur: QUALIFIERS: Encounter type: initial encounter Fracture type: closed Fracture alignment: displaced Qualified Code(s): S72.142A - Displaced intertrochanteric fracture of left femur, initial encounter for closed fracture (3) Fall: (4) Constipation: (5) Occult blood in stools: (6) Vitamin D deficiency: PLAN: Plan Left intertrochanteric fracture - Postop day 2 left cephalomedullary nail with long gamma nail - Secondary to suspected osteoporosis - Would recommend outpatient DEXA scan - Weightbearing as tolerated per orthopedic surgery - Long-term anticoagulation for DVT prophylaxis per orthopedic surgery with Eliquis - Will monitor CBC closely - Continue scheduled Tylenol and as needed oxycodone - PT/OT following - Anticipate discharge to SNF versus rehab--> case management/social media marketing analyst following - Will need pre-CERT Acute anemia - Hemoccult was positive but patient is not anticoagulated at baseline and I do question whether or not this is potentially related to hemorrhoids as she does have constipation issues - Status post 2 units of packed red blood cells and hemoglobin remains stable despite starting Eliquis - Repeat CBC in the a.m. for stability - If further drop may need GI consultation but if stable will refer as an outpatient Vitamin D deficiency - Continue ergocalciferol as ordered DM-2 - Patient is diet controlled - most recent hemoglobin A1c was 7.3 - will transition diet to carb control Parkinson's disease - Continue home carbidopa levodopa Essential hypertension - Blood pressures are still somewhat soft postoperatively - Will continue to monitor need for antihypertensives as patient is on losartan at baseline - Restart losartan as medically appropriate Abnormal TSH - TSH was 7.49 with a normal free T4 at 1.1 - Euthyroid sick syndrome - Outpatient follow-up DVT prophylaxis - Apixaban 2.5 mg p.o. twice daily per orthopedic surgery CODE STATUS -Full code Disposition: 02/18/2025 patient is ready for discharge from a medical standpoint. Delay in discharge is related to day of the week being Wednesday, awaiting acceptance to rehab and patient will need pre-CERT. Charges/Coding Visit Charges Inpatient E&M: 13795 Subs Hosp L2
[2025-02-18] MEDS: APIXABAN 2.5 MG TABLET (WCH) PO ×2 (08:30→22:11)
[2025-02-18] MEDS: Glucerna Shake 120 ML LIQUID PO ×4 (08:33→22:09)
[2025-02-18 09:14] VITALS: BP 109/57; PULSE 94; RESP 16; TEMP 36.6; O2SAT 97
[2025-02-18 14:53] VITALS: BP 131/65; PULSE 99; RESP 17; TEMP 36.8; O2SAT 100
[2025-02-18] MEDS: Senna/Docusate Sodium 1 Tablet 2 TABLET PO (22:10)
[2025-02-18 22:21] VITALS: BP 118/77; PULSE 95; RESP 16; TEMP 36.6; O2SAT 99
[2025-02-19 05:38] VITALS: BP 102/67; PULSE 81; RESP 16; TEMP 36.1; O2SAT 96
[2025-02-19 06:07] LABS: Hematocrit 26.2 % (37-47); Hemoglobin 9.1 g/dL (12.0-15.0); Mean Corp Hgb Conc 34.7 g/dL (32-36); Mean Corpuscular Volume 88.8 fL (81-99); Mean Platelet Vol. 9.6 fl (6.2-12.0); Platelet Count 262 K/mm3 (150-450); RBC Distribution Width CV 15.2 % (11.6-14.6); RBC Distribution Width SD 47.0 fl (35.1-43.9); Red Blood Count 2.95 M/mm3 (4.2-5.4); White Blood Count 10.0 K/mm3 (4.4-11.0)
[2025-02-19 06:47] LABS: Anion Gap 10 (5-15); BUN 12 mg/dL (4-19); BUN/Creat Ratio 23.4 RATIO (10-20); Calcium,Total 8.4 mg/dL (7.6-11.0); Carbon Dioxide 21.3 mmol/L (21.0-32.0); Chloride 103 mmol/L (98-108); Estimated Creatinine Clearance 44.44 ml/min (50-250); Glucose 165 mg/dL (70-99); Potassium 3.7 mmol/L (3.3-5.1)
[2025-02-19 09:03] VITALS: BP 99/66; PULSE 84; RESP 16; TEMP 36.8; O2SAT 98
[2025-02-19] MEDS: Senna/Docusate Sodium 1 Tablet 2 TABLET PO (09:11)
[2025-02-19] MEDS: APIXABAN 2.5 MG TABLET (WCH) PO ×2 (09:11→21:15)
[2025-02-19] MEDS: 0.9% Saline Lock 10 ML Syringe IV (09:11)
[2025-02-19] MEDS: Glucerna Shake 120 ML LIQUID PO (09:13)
--- NOTE | 2025-02-19 09:58 | PCM.POSTANE2 ---
Anesthesia Postop Eval I Sum Postop Eval Completion status Anesthesia document: Postop Eval 1 completed: Yes Anesthesia Postop Eval I Summary Anesthesia Postop Eval I Summary: Anesthesia Postop Eval I: Assessment Summary Airway patent Yes 02/16/25 12:50 BEVERAGE INSPECTION MACHINE TENDER.SKOBY Spontaneous unlabored Yes 02/16/25 12:50 BEVERAGE INSPECTION MACHINE TENDER.OLEGOBBarb respirations Mental status Awake,Calm 02/16/25 12:50 BEVERAGE INSPECTION MACHINE TENDER.SKOBY nausea No 02/16/25 12:50 BEVERAGE INSPECTION MACHINE TENDER.SKOBY Vomiting No 02/16/25 12:50 BEVERAGE INSPECTION MACHINE TENDER.SKOBY Anesthesia Postop Eval I: Fluid Summary Crystalloid volume administer 2,400 02/16/25 12:50 BEVERAGE INSPECTION MACHINE TENDER.SKOBY (ml) Colloids volume administered ( ml) Blood Product volume administered (ml) Total IV fluid infused 2,400 02/16/25 12:50 BEVERAGE INSPECTION MACHINE TENDER.OLEGOBBarb Anesthesia Postop Eval I: Summary Notes Anesthesia Complication No 02/16/25 12:50 BEVERAGE INSPECTION MACHINE TENDER.FELIPE Anesthesia Complication Comment: Post-operative progress note to receive 2 units 02/16/25 12:50 BEVERAGE INSPECTION MACHINE TENDER.FELIPE of PRBCs, awaiting from blood bank, Dr. Zaman aware of units to be received and pressor requirements during case; currently weaned off and BP stable. Anesthesia: Postop Eval II Evaluation Mental status: Awake and Calm Pain Level: 1 nausea: No Vomiting: No Complications Anesthesia Complication: No
--- NOTE | 2025-02-19 09:58 | POSTOPAN2_ITS ---
Anesthesia Postop Eval I Sum Postop Eval Completion status Anesthesia document: Postop Eval 1 completed: Yes Anesthesia Postop Eval I Summary Anesthesia Postop Eval I Summary: Anesthesia Postop Eval I: Assessment Summary Airway patent Yes 02/16/25 12:50 MANAGER [email or web address] Spontaneous unlabored Yes 02/16/25 12:50 MANAGER [email or web address].[email or web address] respirations Mental status Awake,Calm 02/16/25 12:50 MANAGER [email or web address] nausea No 02/16/25 12:50 MANAGER [email or web address] Vomiting No 02/16/25 12:50 MANAGER [email or web address] Anesthesia Postop Eval I: Fluid Summary Crystalloid volume administer 2,400 02/16/25 12:50 MANAGER [email or web address].[email or web address] (ml) Colloids volume administered ( ml) Blood Product volume administered (ml) Total IV fluid infused 2,400 02/16/25 12:50 MANAGER [email or web address].[email or web address] Anesthesia Postop Eval I: Summary Notes Anesthesia Complication No 02/16/25 12:50 MANAGER [email or web address] Anesthesia Complication Comment: Post-operative progress note to receive 2 units 02/16/25 12:50 MANAGER [email or web address].FELIPE of PRBCs, awaiting from blood bank, Dr. Zaman aware of units to be received and pressor requirements during case; currently weaned off and BP stable. Anesthesia: Postop Eval II Evaluation Mental status: Awake and Calm Pain Level: 1 nausea: No Vomiting: No Complications Anesthesia Complication: No
--- NOTE | 2025-02-19 13:17 | PCM.PN.ORT ---
Documented by User: LEONIE Delaney 02/19/25 13:22 Subjective Subjective Postop day 3 status post left hip long gamma nail for IT plus subtrochanteric fracture. Patient doing well. Pain well-controlled. Dressings dry. Patient continues to work with PT/OT, using walker for ambulation. Plan to go to rehab after discharge from floor. Objective Data Objective Data Vital Signs: Vital Signs Temp Pulse Resp BP Pulse Ox O2 Del Method O2 Flow Rate 98.3 F 84 16 99/66 98 Room Air 2 02/19/25 09:03 02/19/25 09:03 02/19/25 09:03 02/19/25 09:03 02/19/25 09:03 02/19/25 09:03 02/16/25 08:45 Oxygen Flow Rate (L/min) 2 Oxygen Delivery Method Room Air Weight: 126 lb 4.8 oz Body Mass Index (BMI) 23.8 Intake & Output: Intake and Output for Last 24 Hours 02/17/25 02/18/25 02/19/25 23:59 23:59 23:59 Intake Total 2907.75 / 2907.75 850 / 850 Output Total 1450 / 1450 700 / 700 Balance 1457.75 / 1457.75 150 / 150 Lab / Micro Data 02/19/25 04:53 02/19/25 04:53 Labs: Laboratory Results - last 24 hr 02/18/25 16:23: POC Glucose 187 H 02/18/25 22:16: POC Glucose 196 H 02/19/25 04:53: WBC 10.0, RBC 2.95 L, Hgb 9.1 L, Hct 26.2 L, MCV 88.8, MCH 30.8, MCHC 34.7, RDW Std Deviation 47.0 H, RDW Coeff of Cody 15.2 H, Plt Count 262, MPV 9.6, Sodium 134, Potassium 3.7, Chloride 103, Carbon Dioxide 21.3, Anion Gap 10, BUN 12, Creatinine 0.51 L, Estim Creat Clear Calc 44.44 L, Est GFR (MDRD) Non-Af 96, BUN/Creatinine Ratio 23.4 H, Glucose 165 H, Calcium 8.4 02/19/25 06:19: POC Glucose 162 H 02/19/25 11:17: POC Glucose 276 H Physical Exam Narrative Dressing?CDI. Distal neurovascular exam is intact in left lower extremity. Const alert, oriented x3 and no apparent distress Assessment & Plan Assessment/Plan (1) Intertrochanteric fracture of left femur: QUALIFIERS: Encounter type: initial encounter Fracture alignment: displaced Fracture type: closed Qualified Code(s): S72.142A - Displaced intertrochanteric fracture of left femur, initial encounter for closed fracture (2) Status post hip surgery: PLAN: Plan Postop day 3 status post left hip ORIF of IT plus subtrochanteric fracture with long gamma nailing. Patient doing well. Pain well-controlled. Weightbearing as tolerated. PT OT ambulation. Discharge to rehab. Documented by User: Dr. Matt Chacon MD 02/19/25 13:27 Objective Data Lab / Micro Data 02/19/25 04:53 02/19/25 04:53 Assessment & Plan Assessment/Plan (1) Intertrochanteric fracture of left femur: QUALIFIERS: Encounter type: initial encounter Fracture alignment: displaced Fracture type: closed Qualified Code(s): S72.142A - Displaced intertrochanteric fracture of left femur, initial encounter for closed fracture (2) Status post hip surgery: PLAN: Plan Postop day 3 status post left hip ORIF of IT plus subtrochanteric fracture with long gamma nailing. Patient doing well. Pain well-controlled. Hemoglobin back to 9+. Eliquis for DVT prophylaxis Weightbearing as tolerated. PT OT ambulation. Discharge to rehab, waiting for placement. Follow-up in clinic in 2 weeks for staple removal. Orthopedics will sign off. Please reach out for questions or concerns.
[2025-02-19 14:09] VITALS: BP 148/50; PULSE 88; RESP 17; TEMP 36.8; O2SAT 100
--- NOTE | 2025-02-19 14:40 | CASEMGMT ---
Social Work- SW followed up with [facility] to verify acceptance. [facility] admissions accepted and referral and precert started. JOHN Camp
--- NOTE | 2025-02-19 14:49 | CHAPLAIN ---
Type of Pastoral Visit _x__ Initial Visit ___ Follow-up Visit ___ On-call Visit ___ General Patient Visit ___ Spiritual Assessment ___ Family Conference ___ Bereavement ___ Rapid Response ___ Code Blue ___ Other (describe below) Pastoral Care Referral From _x__ Patient _x__ Family ___ Nurse ___ Physician ___ Animal Care Supervisor ___ Corporate Coordinator ___ Other (describe below) Sacrament/Intervention _x__ Active listening ___ Anointing ___ Caodaism ___ Bereavement ___ Communion ___ Jess exploration ___ _x__ Life review _x__ Prayer ___ Reconciliation ___ Sacrament of Sick ___ Supportive presence ___ Wedding ___ Other (describe below) Pastoral Comments patient and one of her sons is in the room at this time; pt indicates that her leg hurts but otherwise she has no concerns; pt says that she believes her help comes from God; pt welcomes prayer support
--- NOTE | 2025-02-19 16:07 | PN.HOSP_ITS ---
Reason for Visit Reason for Visit: Left hip pain Subjective Subjective No complaints. Moving her bowels well. Has been accepted at rehab and awaiting pre-CERT. Objective Data Objective Data Vital Signs: Vital Signs Temp Pulse Resp BP Pulse Ox O2 Del Method O2 Flow Rate 98.3 F 88 17 148/50 H 100 Room Air 2 02/19/25 14:02/19/25 14:02/19/25 14:02/19/25 14:02/19/25 14:02/19/25 14:02/16/25 08:45 Oxygen Flow Rate (L/min) 2 Oxygen Delivery Method Room Air Weight: 57.289 kg Body Mass Index (BMI) 23.8 Intake & Output: Intake and Output for Last 24 Hours 02/17/25 02/18/25 02/19/25 23:59 23:59 23:59 Intake Total 2907.75 / 2907.75 850 / 850 Output Total 1450 / 1450 700 / 700 Balance 1457.75 / 1457.75 150 / 150 Lab / Micro Data 02/19/25 04:53 02/19/25 04:53 Labs: Laboratory Results - last 24 hr 02/18/25 16:23: POC Glucose 187 H 02/18/25 22:16: POC Glucose 196 H 02/19/25 04:53: WBC 10.0, RBC 2.95 L, Hgb 9.1 L, Hct 26.2 L, MCV 88.8, MCH 30.8, MCHC 34.7, RDW Std Deviation 47.0 H, RDW Coeff of Cody 15.2 H, Plt Count 262, MPV 9.6, Sodium 134, Potassium 3.7, Chloride 103, Carbon Dioxide 21.3, Anion Gap 10, BUN 12, Creatinine 0.51 L, Estim Creat Clear Calc 44.44 L, Est GFR (MDRD) Non-Af 96, BUN/Creatinine Ratio 23.4 H, Glucose 165 H, Calcium 8.4 02/19/25 06:19: POC Glucose 162 H 02/19/25 11:17: POC Glucose 276 H Physical Exam Const alert, no apparent distress, average body habitus and well nourished Constitutional Narrative: Elderly, white female, sitting up in a chair at the bedside, nursing at bedside, appears comfortable, nontoxic, oriented times self and place but not time HEENT head/scalp atraumatic and moist oral mucous membranes HEENT Narrative: No thrush Head and Scalp: normocephalic Resp normal respiratory effort, no retractions, no use of accessory muscles and clear to auscultation bilaterally Auscultation: Negative for rales, rhonchi or wheezes Neuro moves all extremities and no focal motor deficits Speech: speech normal Psych affect normal Psych Narrative: Interacts appropriately Assessment & Plan Assessment/Plan (1) Vitamin D deficiency: (2) Anemia: (3) Intertrochanteric fracture of left femur: QUALIFIERS: Encounter type: initial encounter Fracture type: c losed Fracture alignment: displaced Qualified Code(s): S72.142A - Displaced intertrochanteric fracture of left femur, initial encounter for closed fracture PLAN: Plan Left intertrochanteric fracture - Postop day 3 left cephalomedullary nail with long gamma nail - Secondary to suspected osteoporosis - Would recommend outpatient DEXA scan - Weightbearing as tolerated per orthopedic surgery - Long-term anticoagulation for DVT prophylaxis per orthopedic surgery with Eliquis x 1 month postop - Continue scheduled Tylenol and as needed oxycodone - PT/OT following - Has been accepted at rehab - Will need pre-CERT and this is pending Acute anemia - Hemoccult was positive but patient is not anticoagulated at baseline and no obvious signs of bleeding - Status post 2 units of packed red blood cells and hemoglobin remains stable despite starting Eliquis - Repeat AVM hemoglobin to can continue to monitor for stability - If further drop may need GI consultation but if stable will refer as an outpatient Vitamin D deficiency - Continue ergocalciferol as ordered DM-2 - Patient is diet controlled - most recent hemoglobin A1c was 7.3 - Continue carb controlled diet Parkinson's disease - Continue home carbidopa levodopa Essential hypertension - Blood pressures were soft postoperatively but now creeping up - If remain elevated through the next 24 hours anticipate being able to restart her home losartan Abnormal TSH - TSH was 7.49 with a normal free T4 at 1.1 - Euthyroid sick syndrome - Outpatient follow-up DVT prophylaxis - Apixaban 2.5 mg p.o. twice daily per orthopedic surgery CODE STATUS -Full code Disposition: 02/18/2025 patient is ready for discharge from a medical standpoint. Delay in discharge is related to day of the week being Wednesday, precertification as she has been accepted at rehab for admission. Charges/Coding Visit Charges Inpatient E&M: 48687 Subs Hosp L1
[2025-02-19 20:45] VITALS: BP 97/61; PULSE 83; RESP 16; TEMP 36.6; O2SAT 100
[2025-02-20 02:30] VITALS: BP 102/56; PULSE 69; RESP 16; TEMP 36.8; O2SAT 98
[2025-02-20 06:50] LABS: Hemoglobin 8.6 g/dL (12.0-15.0)
[2025-02-20 07:44] VITALS: O2SAT 95
[2025-02-20 08:16] VITALS: BP 105/69; PULSE 81; RESP 18; TEMP 37.2; O2SAT 97
[2025-02-20] MEDS: APIXABAN 2.5 MG TABLET (WCH) PO ×2 (08:47→21:08)
[2025-02-20 11:12] LABS: Hemoglobin 8.9 g/dL (12.0-15.0)
[2025-02-20 13:36] VITALS: BP 125/61; PULSE 89; RESP 18; TEMP 37.1; O2SAT 95
--- NOTE | 2025-02-20 14:47 | CASEMGMT ---
Social Work- SW followed up with [facility] admissions; precert remains pending. Physician and bedside nurse updated. SW remains available to follow. JOHN Camp
[2025-02-20] MEDS: 0.9% Saline Lock 10 ML Syringe IV (15:08)
--- NOTE | 2025-02-20 15:18 | CASEMGMT ---
Addendum entered by Lucretia Padilla 02/20/25 17:04: Pt approved for [facility] per physician. JEWEL notified [facility] admissions. Plan will be to admit tomorrow following [facility] receipt of proof of approval from insurance. Plan: [facility] JOHN Camp Original Note: Social Work- SW received notice of offer for [id number]. Peer to Peer contact: [phone] Must be completed (Scheduled) by 02/21 at 245pm. JEWEL scheduled [id number] for 4:30PM today. Physician notified. JEWEL remains available to follow. JOHN Camp
--- NOTE | 2025-02-20 17:13 | PN.HOSP_ITS ---
Reason for Visit Reason for Visit: L hip pain after fall Subjective Subjective No complaints. States her pain is well-controlled with the current regimen. Most problematic with initiating movement. Bowels are functioning okay. Objective Data Objective Data Vital Signs: Vital Signs Temp Pulse Resp BP Pulse Ox O2 Del Method O2 Flow Rate 98.7 F 89 18 125/61 H 95 Room Air 2 02/20/25 13:36 02/20/25 13:36 02/20/25 13:36 02/20/25 13:36 02/20/25 13:36 02/20/25 13:36 02/16/25 08:45 Oxygen Flow Rate (L/min) 2 Oxygen Delivery Method Room Air Weight: 57.289 kg Body Mass Index (BMI) 23.8 Intake & Output: Intake and Output for Last 24 Hours 02/18/25 02/19/25 02/20/25 23:59 23:59 23:59 Intake Total 850 / 850 Output Total 700 / 700 550 / 550 Balance 150 / 150 -550 / -550 Lab / Micro Data 02/20/25 10:16 02/19/25 04:53 Labs: Laboratory Results - last 24 hr 02/19/25 21:14: POC Glucose 202 H 02/20/25 06:11: POC Glucose 161 H 02/20/25 06:37: Hgb 8.6 L 02/20/25 10:16: Hgb 8.9 L 02/20/25 11:24: POC Glucose 287 H 02/20/25 16:41: POC Glucose 180 H Physical Exam Const alert, oriented x3, no apparent distress, average body habitus and well nourished Constitutional Narrative: Elderly, white female, sitting up in a chair at the bedside, nursing at bedside, appears comfortable, nontoxic, oriented times self and place but not time HEENT head/scalp atraumatic and moist oral mucous membranes Head and Scalp: normocephalic GI normal to inspection, nondistended, normoactive bowel sounds, soft to palpation and non-tender Extremity no clubbing, cyanosis or edema Extremity Narrative: Pedal and radial pulses are 2+ Skin Skin Narrative: Incision left hip is clean dry intact with bandage in place and no bloody drainage on bandages Assessment & Plan Assessment/Plan (1) Vitamin D deficiency: (2) Anemia: (3) Intertrochanteric fracture of left femur: QUALIFIERS: Encounter type: initial encounter Fracture type: c losed Fracture alignment: displaced Qualified Code(s): S72.142A - Displaced intertrochanteric fracture of left femur, initial encounter for closed fracture PLAN: Plan Left intertrochanteric fracture - Postop day 4 left cephalomedullary nail with long gamma nail - Secondary to suspected osteoporosis - Would recommend outpatient DEXA scan - Weightbearing as tolerated per orthopedic surgery - Long-term anticoagulation for DVT prophylaxis per orthopedic surgery with Eliquis x 1 month postop - Continue scheduled Tylenol and as needed oxycodone - PT/OT following - Has been accepted at rehab - Glia-cn-cfok done this evening and patient has been approved by insurance for discharge to rehab per conversation with rehab unit we will plan for discharge tomorrow Acute anemia - Hemoccult was positive but patient is not anticoagulated at baseline and no obvious signs of bleeding - Status post 2 units of packed red blood cells and hemoglobin remains stable despite starting Eliquis - Hemoglobin remained stable repeat a.m. hemoglobin - If further drop may need GI consultation but if stable will refer as an outpatient Vitamin D deficiency - Continue ergocalciferol as ordered DM-2 - Patient is diet controlled - most recent hemoglobin A1c was 7.3 - Continue carb controlled diet Parkinson's disease - Continue home carbidopa levodopa Essential hypertension - Blood pressures were soft postoperatively but now creeping up - If remain elevated through the next 24 hours anticipate being able to restart her home losartan Abnormal TSH - TSH was 7.49 with a normal free T4 at 1.1 - Euthyroid sick syndrome - Outpatient follow-up DVT prophylaxis - Apixaban 2.5 mg p.o. twice daily per orthopedic surgery CODE STATUS -Full code Disposition: 02/18/2025 patient is ready for discharge from a medical standpoint. Fnrx-et-jgub done today with insurance company. She has been approved for rehab level of care at discharge. Per discussion with case management we will plan for discharge tomorrow to rehab. Charges/Coding Visit Charges Inpatient E&M: 28098 Subs Hosp L1
[2025-02-20 18:10] VITALS: BP 102/63; PULSE 82; RESP 18; TEMP 36.8; O2SAT 98
[2025-02-20 20:10] VITALS: BP 113/61; PULSE 81; RESP 16; TEMP 36.6; O2SAT 100
[2025-02-21 02:15] VITALS: BP 118/67; PULSE 82; RESP 16; TEMP 36.6; O2SAT 97
--- NOTE | 2025-02-21 08:28 | DS.PCM_ITS ---
Providers Date of Admission: 02/15/25 Primary Care Physician: Dr. Candelario Santana MD Consultations 02/15/25 16:01 Consult: Orthopedics Routine Consulting Provider: Matt Chacon Reason for Consult: left hip fx EMERGENT Consult: No MD Notified: Yes Date Notified: 02/15/25 Time Notified: 15:03 Method of Notification: ED Physician Initiated Reason For Visit: LEFT HIP FRACTURE Diagnosis Discharge Diagnosis (1) Vitamin D deficiency: Status: Acute Code(s): E55.9 - Vitamin D deficiency, unspecified (2) Anemia: Status: Acute Code(s): D64.9 - Anemia, unspecified (3) Intertrochanteric fracture of left femur: Status: Acute Code(s): S72.142A - Displaced intertrochanteric fracture of left femur, initial encounter for closed fracture Qualifiers: Encounter type: initial encounter Fracture alignment: displaced F racture type: closed Qualified Code(s): S72.142A - Displaced intertrochanteric fracture of left femur, initial encounter for closed fracture Plan Left intertrochanteric fracture - Postop day 4 left cephalomedullary nail with long gamma nail - Secondary to suspected osteoporosis - Would recommend outpatient DEXA scan - Weightbearing as tolerated per orthopedic surgery - Long-term anticoagulation for DVT prophylaxis per orthopedic surgery with Eliquis x 1 month postop - Continue scheduled Tylenol and as needed oxycodone - PT/OT following - Has been accepted at rehab - Rcqi-fn-rzuv done this evening and patient has been approved by insurance for discharge to rehab per conversation with rehab unit we will plan for discharge tomorrow Acute anemia - Hemoccult was positive but patient is not anticoagulated at baseline and no obvious signs of bleeding - Status post 2 units of packed red blood cells and hemoglobin remains stable despite starting Eliquis - Hemoglobin remained stable repeat a.m. hemoglobin - If further drop may need GI consultation but if stable will refer as an outpatient Vitamin D deficiency - Continue ergocalciferol as ordered DM-2 - Patient is diet controlled - most recent hemoglobin A1c was 7.3 - Continue carb controlled diet Parkinson's disease - Continue home carbidopa levodopa Essential hypertension - Blood pressures were soft postoperatively but now creeping up - If remain elevated through the next 24 hours anticipate being able to restart her home losartan Abnormal TSH - TSH was 7.49 with a normal free T4 at 1.1 - Euthyroid sick syndrome - Outpatient follow-up DVT prophylaxis - Apixaban 2.5 mg p.o. twice daily per orthopedic surgery CODE STATUS -Full code Disposition: 02/18/2025 patient is ready for discharge from a medical standpoint. Famj-js-[id number] done today with insurance company. She has been approved for rehab level of care at discharge. Per discussion with case management we will plan for discharge tomorrow to rehab. Medications at Discharge Home Medications carbidopa 25 mg-levodopa 100 mg tablet 1 tab PO TID 02/15/25 losartan 50 mg tablet 50 mg PO DAILY 02/15/25 Held on 02/21/25. Instructions: Until blood pressures are consistently greater than 130 systolic acetaminophen 500 mg tablet 1,000 mg (2 x 500 mg) PO Q8 #0 tabs 02/21/25 apixaban 5 mg tablet (Eliquis) 2.5 mg (1/2 x 5 mg) PO BID #0 tabs 02/21/25 calcium carbonate 500 mg (2.5 x 200 mg calcium (500 mg)) PO TIDCM #0 tabs 02/21/25 ergocalciferol (vitamin D2) 1,250 mcg (50,000 unit) capsule (Vitamin D2) 1,250 mcg PO Q7D #0 caps 02/21/25 melatonin 10 mg sublingual tablet 10 mg PO QHS PRN PRN Insomnia #0 tabs 02/21/25 oxycodone 5 mg tablet 5 mg PO Q4H PRN PRN Pain Score 4-10 1 day #6 tabs 02/21/25 sennosides 8.6 mg-docusate sodium 50 mg tablet (Stimulant Laxative Plus) 2 tab PO BID #0 tabs 02/21/25 Weight / BMI Weight Weight: 57.289 kg Body Mass Index (BMI) 23.8 ABG / Lab / Microbiology Data 02/21/25 08:25 02/19/25 04:53 Laboratory: Laboratory Results - last 24 hr 02/20/25 10:16: Hgb 8.9 L 02/20/25 11:24: POC Glucose 287 H 02/20/25 16:41: POC Glucose 180 H 02/20/25 21:07: POC Glucose 209 H 02/21/25 06:28: POC Glucose 212 H 02/21/25 08:25: Hgb 8.6 L D/C Instructions Discharge Diet: 1800 Calorie Control Diet Discharge Activity: Return to Normal Activity and Use Walker Weight Bearing Status: Weight bearing as tolerated Keep extremity elevated above heart level: Operative Extremity Remove Dressing in: per ortho DC O2, CPAP, BIPAP Needs Home O2 Discharge instructions: No Please Follow Up With: Matt Chacon MD When: 2 weeks Meaningful Use Info Meaningful Use Meaningful Use Diagnoses (Choose all that apply): None applicable Ischemic Stroke Statin Dosing Therapy Reference: STATIN DOSE THERAPY REFERENCE: * Patients > 75 years receive moderate or high dose statin therapy. * Patients 75 years or YOUNGER should receive HIGH intensity statin dose unless contraindicated. You will be required to document reason for non-treatment if statin daily dose does not meet guidelines. HIGH DOSE STATIN THERAPY DAILY Atorvastatin > than or = to 40 mg Rosuvastatin > than or = to 20 mg Amlodipine + Atorvastatin > than or = to 2.5/40 mg Ezetimibe + Simvastatin 10/80 mg Simvastatin 80mg Discharge Plan Admission Admit Date/Time: 02/15/25 14:56 Primary Reason for Your Visit: Left hip pain Attending Provider: Gia Owusu Primary Care Provider: Candelario Santana Chi Consulting Providers: Matt Chacon; Lakeshia Mas; Baldev Berry Instructions Additional Instructions / Restrictions: 1. WBAT LLE 2. Eliquis 2.5 mg BID x 30 days then stop 3. Dressing changes per ortho 4. Ortho F/U in 2 weeks Discharge Orders/Prescriptions Prescriptions: New acetaminophen 500 mg Tablet 1,000 mg PO Q8 Qty: 0 0RF ergocalciferol (vitamin D2) [Vitamin D2] 1,250 mcg (50,000 unit) Capsule 1,250 mcg PO Q7D Qty: 0 0RF Eliquis 5 mg Tablet 2.5 mg PO BID Qty: 0 0RF sennosides-docusate sodium [Stimulant Laxative Plus] 8.6-50 mg Tablet 2 tab PO BID Qty: 0 0RF calcium carbonate 200 mg calcium (500 mg) Tablet,Chewable 500 mg PO TIDCM Qty: 0 0RF oxycodone 5 mg Tablet 5 mg PO Q4H PRN PRN (Reason: Pain Score 4-10) 1 Days Qty: 6 0RF melatonin 10 mg Tablet, Sublingual 10 mg PO QHS PRN PRN (Reason: Insomnia) Qty: 0 0RF Continued carbidopa-levodopa 25-100 mg tablet 1 tab PO TID Held losartan 50 mg tablet 50 mg PO DAILY Hold Instructions: Until blood pressures are consistently greater than 130 systolic Referrals / Follow Up: Candelario Santana Chi, MD [Primary Care Provider] - In 1 Week (After discharge) Disposition Disposition (needs filled in before D/C Order can be placed): Inpatient Rehab Unit/Facility Charges/Coding Visit Charges Inpatient E&M: 74234 Disch Hosp >30min
--- NOTE | 2025-02-21 08:28 | PCM.DC.SUM ---
Providers Date of Admission: 02/15/25 Date of Discharge: 02/21/25 Primary Care Physician: Dr. Candelario Santana MD Consultations 02/15/25 16:01 Consult: Orthopedics Routine Consulting Provider: Matt Chacon Reason for Consult: left hip fx EMERGENT Consult: No MD Notified: Yes Date Notified: 02/15/25 Time Notified: 15:03 Method of Notification: ED Physician Initiated Reason For Visit: LEFT HIP FRACTURE Diagnosis Discharge Diagnosis (1) Vitamin D deficiency: Status: Acute Code(s): E55.9 - Vitamin D deficiency, unspecified (2) Anemia: Status: Acute Code(s): D64.9 - Anemia, unspecified (3) Intertrochanteric fracture of left femur: Status: Acute Code(s): S72.142A - Displaced intertrochanteric fracture of left femur, initial encounter for closed fracture Qualifiers: Encounter type: initial encounter Fracture alignment: displaced Fracture type: closed Qualified Code(s): S72.142A - Displaced intertrochanteric fracture of left femur, initial encounter for closed fracture Medications at Discharge Home Medications carbidopa 25 mg-levodopa 100 mg tablet 1 tab PO TID 02/15/25 losartan 50 mg tablet 50 mg PO DAILY 02/15/25 Held on 02/21/25. Instructions: Until blood pressures are consistently greater than 130 systolic acetaminophen 500 mg tablet 1,000 mg (2 x 500 mg) PO Q8 #0 tabs 02/21/25 apixaban 5 mg tablet (Eliquis) 2.5 mg (1/2 x 5 mg) PO BID #0 tabs 02/21/25 calcium carbonate 500 mg (2.5 x 200 mg calcium (500 mg)) PO TIDCM #0 tabs 02/21/25 ergocalciferol (vitamin D2) 1,250 mcg (50,000 unit) capsule (Vitamin D2) 1,250 mcg PO Q7D #0 caps 02/21/25 melatonin 10 mg sublingual tablet 10 mg PO QHS PRN PRN Insomnia #0 tabs 02/21/25 oxycodone 5 mg tablet 5 mg PO Q4H PRN PRN Pain Score 4-10 1 day #6 tabs 02/21/25 sennosides 8.6 mg-docusate sodium 50 mg tablet (Stimulant Laxative Plus) 2 tab PO BID #0 tabs 02/21/25 Hospital Course Operations None Procedures - (Femur x-ray/pelvic x-rays) Summary of Care Provided Minutes Spent on Discharge: 38 Hospital Course: Mrs. Landry is a 79-year-old white female who presented to the emergency department [facility] on 02/15/2025 with a chief complaint of left hip pain after mechanical fall. Patient fell last Wednesday prior to presentation and her sons helped her get to the couch but she had not been able to get up off the couch since that point in time. Friends and family had been bringing her foods and water and drinks but due to persistent pain she was not able to get up and called EMS. Vital signs at the time of presentation showed a temperature of 98.3, heart rate 98, respiratory 16, blood pressure was 105/74 and pulse ox was 100% on room air. CBC shows a anemia with a hemoglobin of 8.7 (baseline unknown) and her BMP was overtly unremarkable. She does have hyperglycemia with a blood sugar of 155. Her UA was not consistent with infection. Femoral x-ray showed comminuted impacted left trochanteric fracture. She was admitted to the medical floor orthopedic consult was placed. She was taken to the OR on 02/16/2025 at which time a left femur cephalomedullary nailing with a long gamma nail and ORIF was performed. Patient did extremely well postoperatively. Since she was anemic preoperatively she was given 2 units of packed red blood cells. Her hemoglobin has remained stable throughout her hospital course. She was tested guaiac positive however she had persistently stable hemoglobin so this was not pursued any further at this time and I do recommend outpatient follow-up if this stent anemia after recovery. She was started on Eliquis 2.5 mg p.o. twice daily for DVT prophylaxis and is still despite this her hemoglobin remained stable. We did obtain a vitamin D level and it was markedly low at 10 so she was started on ergocalciferol. I recommend she continue this for 7 weeks with a weekly dose and repeat vitamin D level at the end of that course to reassess. Her Parkinson's disease in conjunction with her hip fracture complicated her case. Rehab was requested and after peer to peer was approved. She is able to be discharged to rehab on 03/13/2025 for ongoing physical therapy, Occupational Therapy and speech therapy if needed. Her blood pressures are stable but we have been holding her losartan. Will continue to hold this until her systolic blood pressure is consistently greater than 130. She will need to follow-up with orthopedic surgery in 2 weeks. She is weightbearing as tolerated and dressing changes are per orthopedic recommendations. Discharge diagnoses: Left intertrochanteric fracture Postop day 5 left cephalomedullary nail with long gamma nail Anemia Vitamin D deficiency DM-2 Parkinson disease Essential hypertension Euthyroid sick syndrome Falls Physical Exam Const alert, no apparent distress, average body habitus and well nourished Constitutional Narrative: Elderly, white female, sitting up in a chair at the bedside, nursing at bedside, appears comfortable, nontoxic, oriented times self and place but not time General Appearance: cooperative, comfortable, well kempt and well developed Orientation / Consciousness: awake, oriented to person and oriented to place; Negative for oriented to time HEENT normocephalic, head/scalp atraumatic, hearing grossly normal bilaterally and moist oral mucous membranes HEENT Narrative: Dentures in place, Mallampati 2, no thrush Eyes conjunctivae normal Eyes Narrative: No scleral icterus Neck supple Neck Narrative: Trachea midline Resp normal respiratory effort, no retractions, no use of accessory muscles and clear to auscultation bilaterally Auscultation: Negative for rales, rhonchi or wheezes Cardio regular rate, regular rhythm, S1 normal heart sound, S2 normal heart sound, no murmurs, no rub, no gallops and no clicks GI normal to inspection, nondistended, normoactive bowel sounds, soft to palpation and non-tender Extremity no clubbing, cyanosis or edema Extremity Narrative: Pedal and radial pulses are 2+ Skin skin turgor normal and no jaundice Skin Narrative: Incision left hip is clean dry intact with bandage in place and no bloody drainage on bandages Neuro moves all extremities and no focal motor deficits Neuro Narrative: Left-sided weakness due to pain Speech: speech normal Psych affect normal Psych Narrative: Interacts appropriately, very pleasant Weight / BMI Weight Weight: 57.289 kg Body Mass Index (BMI) 23.8 ABG / Lab / Microbiology Data 02/21/25 08:25 02/19/25 04:53 Laboratory: Laboratory Results - last 24 hr 02/20/25 10:16: Hgb 8.9 L 02/20/25 11:24: POC Glucose 287 H 02/20/25 16:41: POC Glucose 180 H 02/20/25 21:07: POC Glucose 209 H 02/21/25 06:28: POC Glucose 212 H 02/21/25 08:25: Hgb 8.6 L D/C Instructions Discharge Diet: 1800 Calorie Control Diet Discharge Activity: Return to Normal Activity and Use Walker Weight Bearing Status: Weight bearing as tolerated Keep extremity elevated above heart level: Operative Extremity Remove Dressing in: per ortho DC O2, CPAP, BIPAP Needs Home O2 Discharge instructions: No Please Follow Up With: Matt Chacon MD When: 2 weeks Meaningful Use Info Meaningful Use Meaningful Use Diagnoses (Choose all that apply): None applicable Ischemic Stroke Statin Dosing Therapy Reference: STATIN DOSE THERAPY REFERENCE: * Patients > 75 years receive moderate or high dose statin therapy. * Patients 75 years or YOUNGER should receive HIGH intensity statin dose unless contraindicated. You will be required to document reason for non-treatment if statin daily dose does not meet guidelines. HIGH DOSE STATIN THERAPY DAILY Atorvastatin > than or = to 40 mg Rosuvastatin > than or = to 20 mg Amlodipine + Atorvastatin > than or = to 2.5/40 mg Ezetimibe + Simvastatin 10/80 mg Simvastatin 80mg Discharge Plan Admission Admit Date/Time: 02/15/25 14:56 Primary Reason for Your Visit: Left hip pain Attending Provider: Gia Owusu Primary Care Provider: Candelario Santana Chi Consulting Providers: Matt Chacon; Lakeshia Mas; Baldev Berry Instructions Additional Instructions / Restrictions: 1. WBAT LLE 2. Eliquis 2.5 mg BID x 30 days then stop 3. Dressing changes per ortho 4. Ortho F/U in 2 weeks Discharge Orders/Prescriptions Prescriptions: New acetaminophen 500 mg Tablet 1,000 mg PO Q8 Qty: 0 0RF ergocalciferol (vitamin D2) [Vitamin D2] 1,250 mcg (50,000 unit) Capsule 1,250 mcg PO Q7D Qty: 0 0RF Eliquis 5 mg Tablet 2.5 mg PO BID Qty: 0 0RF sennosides-docusate sodium [Stimulant Laxative Plus] 8.6-50 mg Tablet 2 tab PO BID Qty: 0 0RF calcium carbonate 200 mg calcium (500 mg) Tablet,Chewable 500 mg PO TIDCM Qty: 0 0RF oxycodone 5 mg Tablet 5 mg PO Q4H PRN PRN (Reason: Pain Score 4-10) 1 Days Qty: 6 0RF melatonin 10 mg Tablet, Sublingual 10 mg PO QHS PRN PRN (Reason: Insomnia) Qty: 0 0RF Continued carbidopa-levodopa 25-100 mg tablet 1 tab PO TID Held losartan 50 mg tablet 50 mg PO DAILY Hold Instructions: Until blood pressures are consistently greater than 130 systolic Referrals / Follow Up: Candelario Santana Chi, MD [Primary Care Provider] - In 1 Week (After discharge) Disposition Disposition (needs filled in before D/C Order can be placed): Inpatient Rehab Unit/Facility Charges/Coding Visit Charges Inpatient E&M: 80359 Disch Hosp >30min
[2025-02-21 08:43] LABS: Hemoglobin 8.6 g/dL (12.0-15.0)
[2025-02-21 09:07] VITALS: BP 101/51; PULSE 79; RESP 16; TEMP 36.6; O2SAT 100
[2025-02-21] MEDS: Senna/Docusate Sodium 1 Tablet 2 TABLET PO (09:10)
[2025-02-21] MEDS: APIXABAN 2.5 MG TABLET (WCH) PO (09:10)
--- NOTE | 2025-02-21 09:37 | PHA.DC.MR.R ---
Pharmacy PR Med Reconciliation Pharmacy Service has performed discharge medication reconciliation for this patient. The patient's discharge medication list was reviewed for discrepancies and discrepancies were resolved. Medications at Discharge Home Medications carbidopa 25 mg-levodopa 100 mg tablet 1 tab PO TID 02/15/25 losartan 50 mg tablet 50 mg PO DAILY 02/15/25 Held on 02/21/25. Instructions: Until blood pressures are consistently greater than 130 systolic acetaminophen 500 mg tablet 1,000 mg (2 x 500 mg) PO Q8 #0 tabs 02/21/25 apixaban 5 mg tablet (Eliquis) 2.5 mg (1/2 x 5 mg) PO BID #0 tabs 02/21/25 calcium carbonate 500 mg (2.5 x 200 mg calcium (500 mg)) PO TIDCM #0 tabs 02/21/25 ergocalciferol (vitamin D2) 1,250 mcg (50,000 unit) capsule (Vitamin D2) 1,250 mcg PO Q7D #0 caps 02/21/25 melatonin 10 mg sublingual tablet 10 mg PO QHS PRN PRN Insomnia #0 tabs 02/21/25 oxycodone 5 mg tablet 5 mg PO Q4H PRN PRN Pain Score 4-10 1 day #6 tabs 02/21/25 sennosides 8.6 mg-docusate sodium 50 mg tablet (Stimulant Laxative Plus) 2 tab PO BID #0 tabs 02/21/25
--- NOTE | 2025-02-21 11:11 | CASEMGMT ---
Social Work Precert has been obtained for pt to discharge to Inpatient Rehab. Per physician, pt is medically ready for dischrage at this time. [facility] in [place] updated and can accept pt. SW met with pt and informed of dc plan and she is agreeable. Phone call to pt son Stoney and notified of dc plan. Stoney is agreeable. RN updated and to coordinate dc time. Disposition: Inpatient Rehab [facility]
[2025-02-21 12:07] VITALS: BP 122/56; PULSE 81; RESP 16; TEMP 36.6; O2SAT 100
== END 2025-02-21 13:55 | DRG 482 ==
LOC: ED 14:38 → MS3 15:36
PROVIDERS: Orthopaedic Surgery Orthopaedic Surgery of the Spine; Admitting Provider Internal Medicine; Emergency Provider Emergency Medicine; PCP Family Medicine Geriatric Medicine; Referring Provider Emergency Medicine; Visit Provider Internal Medicine
PROC: 0QS706Z Reposition Left Upper Femur with Intramedullary Internal Fixation Device, Open Approach (ICD-10-PCS; CPT 27245; principal; 2025-02-16 08:30)
DX: M80.052A Age-related osteoporosis with current pathological fracture, left femur, initial encounter for fracture (principal); E11.65 Type 2 diabetes mellitus with hyperglycemia; D64.9 Anemia, unspecified; E89.0 Postprocedural hypothyroidism; E07.81 Sick-euthyroid syndrome; G20.A1 Parkinson's disease without dyskinesia, without mention of fluctuations; I10 Essential (primary) hypertension; W18.09XA Striking against other object with subsequent fall, initial encounter; K59.00 Constipation, unspecified; R19.5 Other fecal abnormalities; Z79.01 Long term (current) use of anticoagulants
CPT/HCPCS: 36415; 73502; 73552; 76000; 80048; 80053; 81001; 82248; 82306; 82728; 82962; 83010; 83036; 83540; 83550; 83615; 84439; 84443; 85018; 85025; 85027; 85045; 85610; 85730; 86850; 86900; 86901; 93005; 97116; 97162; 97166; 97530; 97535; 97802; 99285; C1713; P9016; A4216; J2405

== ENCOUNTER 2025-02-21 14:16 | Inpatient (IN) | payer MEDICARE, SELFPAY ==
[2025-02-21 14:46] VITALS: BP 157/54; PULSE 85; RESP 15; TEMP 36.9
[2025-02-21 14:47] VITALS: BMI 25.4
[2025-02-21 17:44] VITALS: BP 157/54; PULSE 85; RESP 15; TEMP 36.9; O2SAT 98
[2025-02-21] MEDS: MELATONIN 10 MG TABLET PO (21:51)
[2025-02-21] MEDS: APIXABAN 2.5 MG TABLET (WCH) PO (21:51)
[2025-02-21] MEDS: Senna/Docusate Sodium 1 Tablet 2 TABLET PO (21:51)
[2025-02-22 05:35] VITALS: BP 119/65; PULSE 79; RESP 16; TEMP 36.6; O2SAT 96
[2025-02-22 06:19] LABS: Hematocrit 24.1 % (37-47); Hemoglobin 8.5 g/dL (12.0-15.0); Immature Granulocytes Count 0.060 X10^3/uL (0.0-0.0); Mean Corp Hgb Conc 35.3 g/dL (32-36); Mean Corpuscular Volume 89.3 fL (81-99); Mean Platelet Vol. 8.8 fl (6.2-12.0); NRBC Flagged by Analyzer 0 % (0-5); Platelet Count 282 K/mm3 (150-450); RBC Distribution Width CV 15.4 % (11.6-14.6); RBC Distribution Width SD 49.5 fl (35.1-43.9); Red Blood Count 2.70 M/mm3 (4.2-5.4); White Blood Count 8.2 K/mm3 (4.4-11.0)
[2025-02-22 07:02] LABS: Magnesium 1.5 mg/dL (1.5-2.2)
[2025-02-22 08:15] LABS: AST(SGOT) 31 U/L (<=31); Alanine Aminotransfer ALT/SGPT < 5 U/L (<=34); Albumin, Serum 2.6 g/dL (3.4-4.8); Alkaline Phosphatase 106 U/L (35-104); Anion Gap 8 (5-15); BUN 15 mg/dL (4-19); BUN/Creat Ratio 32.5 RATIO (10-20); Calcium,Total 8.6 mg/dL (7.6-11.0); Carbon Dioxide 23.6 mmol/L (21.0-32.0); Chloride 99 mmol/L (98-108); Estimated Creatinine Clearance 51.41 ml/min (50-250); Globulin 3.0 g/dL (2.2-4.2); Glucose 203 mg/dL (70-99); Potassium 4.1 mmol/L (3.3-5.1)
[2025-02-22 08:28] VITALS: BP 154/60; PULSE 75; RESP 18; TEMP 36.8; O2SAT 99
[2025-02-22] MEDS: Senna/Docusate Sodium 1 Tablet 2 TABLET PO ×2 (08:30→21:47)
[2025-02-22] MEDS: APIXABAN 2.5 MG TABLET (WCH) PO ×2 (08:30→21:48)
[2025-02-22] MEDS: 0.9% Saline Lock 10 ML Syringe IV ×2 (08:34→21:47)
--- NOTE | 2025-02-22 09:45 | PCM.HP.STD ---
[facility] - General General Date of Admission: 02/21/25 Date of Service: 02/22/25 Chief Complaint: Debility secondary to left hip fracture and patient with Parkinson's disease HPI Narrative SHASHI OSWALD, is a 79 YO F with a past medical history of Parkinson's disease?, diabetes mellitus type 2, hypertension, hypothyroidism (status post thyroidectomy), restless leg syndrome, history of choledocholithiasis (has had an ERCP and placement of temporary biliary stents in November [address] Tran), internal hemorrhoids, iron deficiency anemia and memory problems who presented to the emergency department at [facility] on 02/15/2025 complaining of left hip pain and inability to walk. She had a fall the previous week and had not been able to get up off the couch since then.../ Family and friends provided assistance. Pelvic x-ray revealed a left intertrochanteric fracture. Dr. Chacon was consulted and she was taken to the operating room on 02/16/2025 and underwent left femur cephalomedullary nailing. she was transferred to the acute inpt rehab unit at [facility] on 02/21/25 for 3 hours of therapy daily to restore function/independence at or near her level prior to the fall. She lives with family in a private one-story home with 3 steps to enter her home. There is 1 handrail. She ambulates in the house without an assistive device. She was independent with her ADLs. PT commented to me today that pt denies having PD. When it was explained that she takes Sinemet and this is for PD she said maybe PD resulted form recent fall. She has not been asking for pain medication but, she grimaces with movement. All lab from this morning was personally reviewed. The sodium is low at 131 and the potassium is 4.1. The BUN is stable at 15 and the creatinine is 0.47 which is actually below what her baseline has been over the past 4 years. Calcium is normal and the phosphorus is 3.2 with a borderline low magnesium of 1.5. ALT and AST are both normal and the bilirubin today is normal at 1. It was elevated at 2.68 at admission to the hospital. Alk phos is very mildly increased and this is more likely than not related to the fracture. TSH on 02/16/2025 was high at 7.49 and the T4 is normal at 1.10. She has had a thyroidectomy in the past and is not on a thyroid supplement. Hemoglobin A1c is 7.3. Vitamin D level is low at 10.7 and she has been started on Calcium and vitamin D since she was admitted to the hospital. Calcium and vitamin D supplement.....compliance? Does she do her own medications or is family helping. Her last bone mineral density test was in 2012 and at that time she was considered osteopenic. Afebrile The blood pressure has ranged from 119/65 to 157/54 since arrival on rehab. Blood pressures were well-controlled while on the acute side of the hospital. Maintaining appropriate oxygen saturation on room air. Has only taken 1 tramadol since admission to rehab and that was last night at at bedtime. We did schedule acetaminophen every 8 hours for pain control. Blood sugars are not adequately controlled. She is only on sliding scale insulin. There were no diabetic medications listed on the H&P from admission to the acute side of the hospital. I reviewed a DC summary from 2021 when she was in the hospital and at that time she was taking levothyroxine, sitagliptin/metformin and Actos. I had the opportunity to talk with her son Stoney with whom she lives and her sister and they were able to provide me with some history. Stoney tells me that his mother has problems with her memory and she does not like to use an assistive device. She was previously on some diabetic meds and levothyroxine but she refused to take them so her PCP just discontinued them. She chronically has a problem with constipation and feeling tired all the time. She was started on Sinemet just recently by Dr. Santana for some gait instability, masked facies and resting tremor. This could be due to PD or it could be due to parkinsonism due to brain shrinkage? Has never had a CT head at this institution. Has not seen a neurologist. REPLACED BY [facility] Medical History Hypothyroidism Diabetes mellitus, type 2 High total serum IgA Pre-syncope Tachycardia Elevated troponin Choledocholithiasis Rheumatoid arthritis Kidney stones Asthma Irregular heart beat Migraines Parkinson's disease Wears glasses Arthritis Restless legs Syncope Dietary restriction Non-smoker Leg cramps Chronic anemia Hypertension Home Medications ?Medication ?Instructions ?Recorded ?Last Taken ?Type carbidopa 25 mg-levodopa 100 mg 1 tab PO TID parkinson 02/15/25 02/21/25 History tablet losartan 50 mg tablet 50 mg PO DAILY blood pressure 02/15/25 02/15/25 History Held on 02/21/25. Instructions: Until blood pressures are consistently greater than 130 systolic acetaminophen 500 mg tablet 1,000 mg (2 x 500 mg) PO Q8 pain 02/21/25 02/21/25 Rx #0 tabs apixaban 5 mg tablet (Eliquis) 2.5 mg (1/2 x 5 mg) PO BID DVT 02/21/25 02/21/25 Rx prophylaxis #0 tabs calcium carbonate 500 mg (2.5 x 200 mg calcium (500 02/21/25 02/21/25 Rx mg)) PO TIDCM supplement #0 tabs ergocalciferol (vitamin D2) 1,250 1,250 mcg PO Q7D supplement #0 caps 02/21/25 Unknown Rx mcg (50,000 unit) capsule (Vitamin D2) melatonin 10 mg sublingual tablet 10 mg PO QHS PRN PRN Insomnia #0 02/21/25 02/20/25 Rx tabs Allergy/AdvReac Type Severity Reaction Status Date / Time Penicillins Allergy Intermediate Hives Verified 02/15/25 13:14 Family History Father Myocardial infarction Hypertension Heart disease Sister Breast cancer Mother CVA (cerebral vascular accident) Surgical History History of open reduction and internal fixation (ORIF) procedure Hx of right cataract extraction Hx of left cataract extraction Hx of esophagogastroduodenoscopy Hx of colonoscopy History of ERCP S/P tubal ligation History of thoracic surgery H/O thyroidectomy History of cholecystectomy Hx of appendectomy Social History household members: other details: with son Stoney Smoking Status: Never smoker alcohol intake: never substance use type: does not use what type of physical activity do you participate in: none do you feel safe at home: Yes ROS Constitutional Constitutional: Reports weakness; Denies anorexia, change in weight, chills, fatigue, fever(s) or night sweats Eyes Eyes: Denies blurry vision, change in vision, eye pain or loss of vision ENT HEENT: Denies abnormal hearing, dysphagia, headache(s), hearing loss, nasal congestion or sore throat Cardiovascular Cardiovascular: Reports edema, racing heartbeat and other Details: she gets palpitations and feels like her heart is racing. ; Denies chest pain, dyspnea on exertion, lightheadedness, orthopnea, palpitations, paroxysmal nocturnal dyspnea or syncope Respiratory/Chest Respiratory/Chest: Denies cough, dyspnea, shortness of breath at rest, shortness of breath with exertion or wheezing Gastrointestinal Gastrointestinal: Reports constipation; Denies abdominal pain, diarrhea, dyspepsia, hematemesis, hematochezia, nausea or vomiting Genitourinary Genitourinary: Reports urinary incontinence; Denies dysuria, hematuria, nocturia, urinary frequency, urinary hesitancy or urinary urgency Musculoskeletal Musculoskeletal: Reports arthralgias, difficulty walking, joint pain and other Details: pain in the left hip, thigh and knee due to left hip intertrochanteric fracture-status post cephalomedullary nail ; Denies back pain, joint swelling or neck pain Neurologic Neurologic: Reports confusion, memory loss, weakness and other Details: per her son prior to Sinemet she had a festinating gait, masked facies and tremors. This has improved with addition of Sinemet to her drug regimen. ; Denies disequilibrium, dizziness, focal weakness, headache(s), paresthesias, seizures or tremor(s) Psychiatric Psychiatric: Denies anxiety, depression, homicidal ideation or suicidal ideation Endocrine Endocrinology: Denies change in body appearance, polydipsia or polyuria Hematologic/Lymphatic Hematologic/Lymphatic: Reports easy bruising; Denies easy bleeding or lymphadenopathy Allergic/Immunologic Allergic/Immunologic: Denies rhinitis, eczemia or asthma Vital Signs Vital Signs Vital Signs: 02/21/25 14:46 02/21/25 17:31 02/21/25 17:44 Temperature 98.5 F 98.5 F Temperature Source Temporal Temporal Pulse Rate 85 85 Pulse Strength Respiratory Rate 15 15 Respiratory Effort Normal Non-Labored Respiratory Depth Normal Respiratory Pattern Normal Blood Pressure 157/54 H 157/54 H Blood Pressure Mean 88 88 Blood Pressure Source Monitor Monitor Blood Pressure Position Semi-Fowlers Semi-Fowlers Blood Pressure Location Right Arm Right Arm Pulse Ox 98 Oxygen Delivery Method Room Air Room Air Room Air 02/21/25 19:58 02/21/25 20:00 02/22/25 05:35 Temperature 97.8 F Temperature Source Temporal Pulse Rate 79 Pulse Strength Normal (2+) Respiratory Rate 16 Respiratory Effort Normal Non-Labored Respiratory Depth Normal Respiratory Pattern Normal Blood Pressure 119/65 Blood Pressure Mean 83 Blood Pressure Source Monitor Blood Pressure Position Semi-Fowlers Blood Pressure Location Right Arm Pulse Ox 96 Oxygen Delivery Method Room Air Room Air 02/22/25 09:19 Temperature Temperature Source Pulse Rate Pulse Strength Normal (2+) Respiratory Rate Respiratory Effort Respiratory Depth Respiratory Pattern Blood Pressure Blood Pressure Mean Blood Pressure Source Blood Pressure Position Blood Pressure Location Pulse Ox Oxygen Delivery Method Weight Weight: 139 lb 1.787 oz Body Mass Index (BMI) 25.4 Physical Exam Const alert and no apparent distress General Appearance: cooperative and well kempt HEENT HEENT Narrative: MM are dry and she has many missing teeth. She denies trouble chewing. No thrush. Denies mouth pain. Eyes PERRL, EOMs intact bilaterally, conjunctivae normal and no scleral icterus Eyes Narrative: No discharge from the eyes Neck supple Neck Narrative: loud R carotid bruit Resp normal respiratory effort, normal air movement, no use of accessory muscles and clear to auscultation bilaterally Resp Narrative: no cough Effort and Inspection: able to speak in complete sentences and symmetric chest movement Cardio regular rate, regular rhythm, no rub and no gallops Cardio Narrative: She has a 3/6 systolic murmur at the second right intercostal space with radiation to the left ventricular outflow tract, lower left sternal border and apex. No ectopy. GI normal to inspection, nondistended, normoactive bowel sounds, soft to palpation and non-tender GI Narrative: No guarding with palpation. no CVA tenderness Narrative: Has urinary incontinence but, she denies dysuria. PVR's X 2 are negative for retention. Extremity Extremity Narrative: Has some ankle edema, L>R. No pretibial edema. CAMILA hose are in place. Neuro Neuro Narrative: She has a mild pill rolling tremor with the R hand. I described a festinating gait to Stoney and he tells me she had this prior to Sinemet. She has better facial expression since she was started on Sinemet. Oriented to person and place. No rigidity. PT did not find she had a festinating disease. She has no masked facies today. Poor memory and some confusion. Denies having PD but, tells me that she is on Sinemet......does not know what this medication is for. Speech is not slurred. She denies trouble swallowing. Tells me she does not cough when she is eating or drinking. Psych cooperative and affect normal Results Lab / Micro Data 02/22/25 06:05 02/22/25 06:05 Labs: Laboratory Results - last 24 hr 02/21/25 16:04: POC Glucose 242 H 02/21/25 21:56: POC Glucose 192 H 02/22/25 06:05: WBC 8.2, RBC 2.70 L, Hgb 8.5 L, Hct 24.1 L, MCV 89.3, MCH 31.5, MCHC 35.3, RDW Std Deviation 49.5 H, RDW Coeff of Cody 15.4 H, Plt Count 282, MPV 8.8, Immature Gran % (Auto) 0.700, Neut % (Auto) 65.0, Lymph % (Auto) 23.7, Marion % (Auto) 7.2, Eos % (Auto) 3.0, Baso % (Auto) 0.4, Absolute Neuts (auto) 5.3, Absolute Lymphs (auto) 1.94, Nucleated RBC % 0, Sodium 131 L, Potassium 4.1, Chloride 99, Carbon Dioxide 23.6, Anion Gap 8, BUN 15, Creatinine 0.47 L, Estim Creat Clear Calc 51.41, Est GFR (MDRD) Non-Af 98, BUN/Creatinine Ratio 32.5 H, Glucose 203 H, Calcium 8.6, Phosphorus 3.2, Magnesium 1.5, Total Bilirubin 1.00, AST 31, ALT < 5, Alkaline Phosphatase 106 H, Total Protein 5.6 L, Albumin 2.6 L, Globulin 3.0, Albumin/Globulin Ratio 0.9 02/22/25 06:09: POC Glucose 189 H Assessment & Plan Assessment/Plan (1) Debility: (2) Intertrochanteric fracture of left femur: QUALIFIERS: Encounter type: initial encounter Fracture type: closed Fracture alignment: displaced Qualified Code(s): S72.142A - Displaced intertrochanteric fracture of left femur, initial encounter for closed fracture (3) History of open reduction and internal fixation (ORIF) procedure: (4) Hyponatremia: (5) Anemia: (6) Vitamin D deficiency: (7) Hypothyroidism: (8) H/O thyroidectomy: (9) Diabetes mellitus, type 2: (10) Parkinson's disease: (11) Cognitive dysfunction: (12) Constipation: (13) Occult blood in stools: (14) History of hemorrhoids: (15) Murmur, cardiac: (16) Hyperlipemia: (17) Right carotid bruit: PLAN: Plan PLAN PT for gait stability OT for ADL's ST for evaluation - for cognition. Analgesics as needed - pt not able to ask for pain medications when she is in pain due to confusion (new? or chronic) so will need to schedule pain meds. Bowel protocol Fall precautions Assess for Anxiety/Depression GI prophylaxis -not necessary at this time. She denies nausea/vomiting/epigastric pain/heartburn. DVT prophylaxis with Eliquis 2.5 mg twice daily Follow up with Dr. Santana, Dr. Chacon, possibly with neurology following DC from IP Rehab AM lab including CMP, CBC, Mag and Phos-personally reviewed Order iron, total iron-binding capacity, percent iron saturation and ferritin due to history of iron deficiency anemia in the past with Hemoccult positive stool. Why is she on Sinemet? she was not on this medication in 2021 when she was in the hospital for acute pancreatitis secondary to choledocholithiasis. Urine sodium, urine and serum osmolality Needs a BMD study in the not too distant future. Suspect she has osteoporosis. check with her son to get a complete med list. Melatonin 1.5 mg nightly. Hemoccult stool Obtain an accurate med list from Dr. Santana. - she has only been taking Sinemet and losartan? Was on diabetic medications and levothyroxine in 2021 per the DC summary. She would not take the meds so they were discontinued. No signs of CHF. Consider a Cartotid US going forward for the loud R carotid bruit. Consider ECHO.......May have developed some stenosis of the aortic valve since the ECHO in 2017 that showed some calcification of the AV. Charges/Coding Visit Charges Inpatient E&M: 92339 Init Hosp L2
[2025-02-22 17:51] VITALS: BP 164/61; PULSE 82; RESP 16; TEMP 37.2; O2SAT 98
[2025-02-22 18:40] LABS: Ferritin 217 ng/mL (22-378); Iron 69 ug/dL (50-170); Iron Binding Capacity,Unsat 128 ug/dL (228-428)
[2025-02-22 18:53] LABS: Mucous, Urine 0 SEEN /hpf (<or=2+)
[2025-02-22 19:28] LABS: Iron Binding Capacity,Total 197 ug/dL (250-450)
[2025-02-22 20:02] VITALS: O2SAT 98
[2025-02-22 21:27] LABS: Osmolality, Urine 176 mOsm/KG
[2025-02-22 21:32] LABS: Osmolality, Serum 283 mOsm/KG (280-301)
[2025-02-22 21:42] VITALS: BP 131/53; PULSE 84; O2SAT 98
[2025-02-22] MEDS: MELATONIN 3 MG TABLET 1.5 MG PO (21:48)
[2025-02-22 22:52] LABS: Color, Urine Yellow (Yellow); Glucose, Dipstick Normal (Normal); Ketone-Dipstick Negative (Negative); Leukocyte Esterase-Dipstick 500 /ul (Negative); Nitrite-Dipstick Positive (Negative); Occult Blood-Urine 50 /ul (Negative); Protein-Dipstick 30 mg/dl (Negative); Specific Gravity, Urine 1.010 (1.002-1.030); Urine Bilirubin Dipstick Negative (Negative)
[2025-02-23 00:40] LABS: Squamous Epithelial Cells - UA 0-5 SEEN /hpf (5-10)
[2025-02-23 00:41] LABS: Red Blood Cells-Urine 0-5 SEEN /hpf (0-5)
[2025-02-23 06:00] VITALS: BP 147/72; PULSE 76; RESP 16; TEMP 36.3; O2SAT 99
[2025-02-23] MEDS: Ergocalciferol 1.25 MG (50, 000 UNIT) Capsule PO (08:49)
[2025-02-23] MEDS: APIXABAN 2.5 MG TABLET (WCH) PO ×2 (08:49→22:01)
[2025-02-23] MEDS: Senna/Docusate Sodium 1 Tablet 2 TABLET PO (08:49)
--- NOTE | 2025-02-23 11:58 | EKG12_ITS ---
Test Reason : AF Blood Pressure : */* mmHG Vent. Rate : 92 BPM Atrial Rate : * BPM P-R Int : * ms QRS Dur : 76 ms QT Int : 358 ms P-R-T Axes : * -12 26 degrees QTcB Int : 442 ms Atrial fibrillation Abnormal ECG When compared with ECG of 16-Feb-2025 05:18, Previous ECG has undetermined rhythm, needs review Confirmed by RENEE ALFARO, JESUS ([id number]), publishing editor CHIOMA ARRIAZA ([id number]) on 02/26/2025 1:19:46 PM Referred By: Katie Bah Confirmed By: JESUS DURAN MD
--- NOTE | 2025-02-23 12:42 | REHABEVAL_ITS ---
Admission Information Primary Diagnosis:: Debility secondary to left hip fracture/ORIF Status Changes from Prescreening?: No changes Identified Actual Problem List:: Falls, Skin Intergrity, Pain, ALteration in Cmfrt, Cognitve Impr/Memory Loss, Bladder Incontinence, Bowel, Constipation, Alteration in Sleep, Mobility Impaired, Self Care Deficit, Diabetes, Hyperglycemia, BP, Hypertension and Alteration-Leisure Activ. Potential Problem List:: DVT, Bleeding, Infection, UTI, Aspiration, Falls, Skin Integrity and Depression Risk of Complications DVT: CAMILA Hose and - (Eliquis 2.5 mg twice daily) Bleeding: Monitor Lab Values, Nursing to Teach Precautions for anti-coagulation therapy., Wound, if applicable, to be assessed every shift. and Stroke patients assessed for lethargy or change in status. Infection: Clinical Staff to Monitor for S/S of infection: and S/S of infection include fever, redness, warmth, etc. Urinary Tract Infection: Monitor for frequency, burning, discomfort, or incontinence. and Nursing will obtain urine sample for urinalysis and C&S when ordered. Aspiration: Clinical staff will monitor for coughing, drooling, congestion., Speech will evaluate swallowing and dsyphasia. and Nursing will monitor patient swallowing during meals. Falls: Patient will be evaluated for Fall Precautions and Patient will be placed on Fall Precautions as indicated per protocol. Skin Breakdown: Nursing will assess skin daily using assessment tool. and Nursing will place on Skin Breakdown Precautions as indicated. Pain: Clinical staff will assess patient's pain level per protocol., Medications will be given, if needed, and the pain level reassessed. and Other methods: Massage, distraction, decrease stimulus, etc. used PRN. Plan of Care Patient requires physician specializing in physical medicine and rehab oversight to provide close medical supervision of rehab issues including: Pain Management, Sleep Problems, Bowel and Bladder, Medical and co-morbidity Management, DVT prophylaxis, Rehabilitation Leadership and Coordination of treatment team Patient needs Physical Therapy: For a minimum of 1 hour and At least 5 out of 7 days Patient needs Physical Therapy to improve:: Mobility, Strengthening, Transfers, Stretching, ROM, Endurance, Stairs, Gait and Balance Patient needs Occupational Therapy: For a minimum of 1 hour and At least 5 out of 7 days Patient needs Occupational Therapy to improve ADL's incl.: Eating, Grooming, Bathing, Dressing, Toileting, Toilet transfers, Community Reintegration, Higher functioning activities, Household tasks, Adaptive Equipment, Splinting and Other activities as determined Patient requires speech therapy: For a minimum of 1 hour and At least 5 out of 7 days Patient requires speech therapy for: Swallowing, Cognition, Language Skills and Compensatory Strategies Patient requires 24/ Rehabilitation Nursing for: Pain Issues, Identifying and preventing risk factors, Monitoring and reporting current medical conditions, Assisting with ambulation, transfer, and all ADL's, Teaching patients about disease process and medications, Family teaching, Providing safe environment, Bowel and Bladder Issues, Skin integrity and Medication Management Patient needs Truck Caterer/ Case Management for: Discharge Planning, Arranging Home Equipment or Services and Family Interventions Patient needs Dietary and Nutrition Services for: Adequate Nutrition, Nutritional Supplements and Nutritional Education Goals Goals Patient will remain: free from falls Patient will perform eating at: MOD I level of assist. Patient will perform bed mobility at: MOD I level of assist. Patient will complete transfers from bed to chair at: Standby Assist. Patient will ambulate: - (150 feet with least restrictive device at standby assist on various surfaces) Patient will complete upper body dressing at: - (Supervision) Patient will complete lower body dressing at: - (Supervision with adaptive equipment as needed for increased independence with self-care) Patient will complete toilet transfer at: - (Supervision) Patient will complete toileting at: - (Supervision) Patient will perform bathing at: - (She will complete upper body bathing at supervision and lower body bathing and supervision with adaptive equipment as needed to facilitate independence with self-care) Patient will perform Tub/Shower transfer at: - (Supervision) Patient will complete grooming at: - (Supervision while standing at the sink) Patient will achieve: - (3 steps with 1 handrail at minimal assistance to allow access to her home entrance.) Patient will have pain level of: of 3 or less Patient's skin will: remain intact Patient will receive: adequate nutrition. Discharge Planning Pt Prognosis for Sig. Practical Improv. w/in Reasonable Time: Good Estimated Length of stay (days): 21 Anticipated D/C Destination: Home w/ family or friends (Her son Stoney lives with her and assists her as needed. Will likely need HHC for a few weeks and then transition to OP therapy. PD and cognitive dysfunction complicate recovery and she will need a little extra time with therapy to get her home. ) Was Preadmission Assessment Accurate?: Yes
--- NOTE | 2025-02-23 12:53 | PN_ITS ---
Subjective Subjective Afebrile VSS -blood pressure since admission to rehab have ranged from 119/65 to 164/61. Heart rate has been within normal limits. Maintaining appropriate oxygen saturation on RA Oral intake - FOOD good FLUIDS fair The blood sugar record was reviewed. The last 4 Accu-Cheks are all less than 200. No hypoglycemia. She is on a carb controlled diet. Postvoid residuals x 4 are all less than 150. The last postvoid residual was 35. Discussed with nursing - no problems that need addressed Reviewed the THERAPY notes Medication list reviewed. urine osmo, serum osmo and urine sodium not consistent with SIADH. Low sodium likely due to hypothyroidism + mild dehydration. UA yesterday showed 3+ bacteria, positive nitrite and 25-50 WBCs. Urine culture was not sent and this was not a clean-catch. A straight cath with repeat UA and urine culture was ordered today. After the straight cath has been completed we will start a antibiotic empirically and await the results of the urine culture. She denies dysuria. Heather slept well last night. She is doing better with pain since the Pain medications have been scheduled. She tells me the pain is better today and she did better with therapy......no longer grimacing. She denies chest pain, shortness of breath, cough, lightheadedness, nausea/vomiting, dysuria and calf tenderness. She tells me her pain is mostly in the left lower extremity above the knee on the lateral side of the thigh. She is incontinent of urine. She was seen by speech therapy today for a cognitive evaluation. She was given the SESAR-III test and scored 37/100. Objective Data Objective Data Vital Signs: Vital Signs Temp Pulse Resp BP Pulse Ox O2 Del Method 97.3 F L 76 16 147/72 H 99 Room Air 02/23/25 06:00 02/23/25 06:00 02/23/25 06:00 02/23/25 06:00 02/23/25 06:00 02/23/25 08:08 Oxygen Delivery Method Room Air Weight: 139 lb 1.787 oz Body Mass Index (BMI) 25.4 Intake & Output: Intake and Output for Last 24 Hours 02/21/25 02/22/25 02/23/25 23:59 23:59 23:59 Intake Total 450 / 450 1250 / 1250 540 / 540 Balance 450 / 450 1250 / 1250 540 / 540 Lab / Micro Data 02/22/25 06:05 02/22/25 06:05 Labs: Laboratory Results - last 24 hr 02/22/25 16:34: POC Glucose 195 H 02/22/25 16:47: Serum Osmolality 283, Iron 69, TIBC 197 L, Iron Saturation 35.0, Unsaturated IBC 128 L, Ferritin 217 02/22/25 18:42: Urine Color Yellow, Urine Clarity Cloudy, Urine pH 6.5, Ur Specific [place] 1.010, Urine Protein 30 H, Urine Glucose (UA) Normal, Urine Ketones Negative, Urine Occult Blood 50 H, Urine Nitrite Positive H, Urine Bilirubin Negative, Urine Urobilinogen Normal, Ur Leukocyte Esterase 500 H, Urine RBC 0-5 SEEN, Urine WBC 25-50 SEEN, Ur Squamous Epith Cells 0-5 SEEN, Urine Bacteria 3+, Urine Mucus 0 SEEN, Urine Osmolality 176, Ur Random Sodium < 20 02/22/25 21:46: POC Glucose 182 H 02/23/25 06:27: POC Glucose 153 H 02/23/25 11:10: POC Glucose 185 H Micro: Microbiology 02/22/25 13:45 Stool Stool Occult Blood (JEREMY) - Final Occult Blood Positive Physical Exam Const alert and no apparent distress Constitutional Narrative: Pleasant and talkative. General Appearance: cooperative HEENT Mouth: dry mucous membranes Neck Neck Narrative: Loud right carotid bruit. No JVD. Resp normal respiratory effort and clear to auscultation bilaterally Resp Narrative: No conversational dyspnea Effort and Inspection: Negative for tachypneic Cardio no rub and no gallops Cardio Narrative: No change in the 3/6 systolic murmur heard best at the second right intercostal space with radiation to the left ventricular outflow tract, lower left sternal border and apex. She is in an irregular irregular rhythm today and she feels this. When I listen to her the heart rate was greater than 100 bpm at rest. GI normal to inspection, nondistended, normoactive bowel sounds, soft to palpation and non-tender Extremity no calf tenderness Extremity Narrative: Very mild left ankle edema. Mepilex dressings are still in place. There is no erythema around the dressing. Assessment & Plan Assessment/Plan (1) Debility: (2) Intertrochanteric fracture of left femur: QUALIFIERS: Encounter type: initial encounter Fracture type: c losed Fracture alignment: displaced Qualified Code(s): S72.142A - Displaced intertrochanteric fracture of left femur, initial encounter for closed fracture (3) History of open reduction and internal fixation (ORIF) procedure: (4) Hyponatremia: (5) Anemia: QUALIFIERS: Anemia type: unspecified type Qualified Code(s): D 64.9 - Anemia, unspecified (6) Vitamin D deficiency: (7) Hypothyroidism: QUALIFIERS: Hypothyroidism type: acquired Qualified Code(s): E 03.9 - Hypothyroidism, unspecified (8) H/O thyroidectomy: (9) Diabetes mellitus, type 2: QUALIFIERS: Diabetes mellitus [facility] insulin use: without long term care phlebotomist use Diabetes mellitus complication status: with other specified complication Qualified Code(s): E11.69 - Type 2 diabetes mellitus with other specified complication (10) Parkinson's disease: QUALIFIERS: Dyskinesia presence: without dyskinesia Fluctuating manifestations: unspecified whether manifestations fluctuate Qualified Code(s): G20.A1 - Parkinson's disease without dyskinesia, without mention of fluctuations (11) Cognitive dysfunction: PLAN: Scored 37 out of a possible 100 on the SESAR III test. suspect she has dementia. Will recommend follow up with neurology post DC from rehab. (12) Constipation: QUALIFIERS: Constipation type: unspecified constipation type Q ualified Code(s): K59.00 - Constipation, unspecified (13) Occult blood in stools: (14) History of hemorrhoids: (15) Murmur, cardiac: (16) Hyperlipemia: QUALIFIERS: Hyperlipidemia type: unspecified Qualified Code(s): E 78.5 - Hyperlipidemia, unspecified (17) Right carotid bruit: PLAN: Plan 1. Continue therapy 2. EKG today 3. Straight cath for a clean UA and a urine culture. After the straight cath is done and the urine is obtained we will start Macrobid 100 mg BID empirically and await the results of the urine culture. 4. No treatment for sodium of 131 at this time. Encouraged good fluid intake. Recehck a BMP next week. 5. Has not had a CT brain at [facility] in the past. TSH is high and this could be contributing to the cognitive dysfunction but, she only scored 37/100 on the SESAR-III and I suspect she has dementia. Will check a B12 level with the next blood draw. Consider a CT brain as an OP. Consider referral to neurology for treatment of dementia. Continue ST while she is on rehab. 6. Start GLucophage 500 mg daily tomorrow AM. GFR is 98. Charges/Coding Visit Charges Inpatient E&M: 35415 Subs Hosp L1
[2025-02-23 14:21] LABS: Mucous, Urine 0 SEEN /hpf (<or=2+); Red Blood Cells-Urine 0 SEEN /hpf (0-5); Squamous Epithelial Cells - UA 0 SEEN /hpf (5-10)
[2025-02-23 14:24] LABS: Color, Urine Yellow (Yellow); Glucose, Dipstick 50 mg/dl (Normal); Ketone-Dipstick Negative (Negative); Leukocyte Esterase-Dipstick 100 /ul (Negative); Nitrite-Dipstick Negative (Negative); Occult Blood-Urine 10 /ul (Negative); Protein-Dipstick 30 mg/dl (Negative); Specific Gravity, Urine 1.010 (1.002-1.030); Urine Bilirubin Dipstick Negative (Negative)
[2025-02-23 18:00] VITALS: BP 155/71; PULSE 81; RESP 16; TEMP 37; O2SAT 97
[2025-02-23] MEDS: MELATONIN 3 MG TABLET 1.5 MG PO (21:59)
[2025-02-23 22:00] VITALS: BP 108/70; PULSE 78
[2025-02-23] MEDS: 0.9% Saline Lock 10 ML Syringe IV (22:03)
[2025-02-24 06:00] VITALS: BP 129/44; PULSE 63; RESP 17; TEMP 36.9; O2SAT 95
[2025-02-24 07:24] VITALS: O2SAT 95
[2025-02-24 08:21] VITALS: PULSE 63
[2025-02-24] MEDS: APIXABAN 2.5 MG TABLET (WCH) PO ×2 (08:21→21:58)
[2025-02-24] MEDS: Senna/Docusate Sodium 1 Tablet 2 TABLET PO (08:21)
[2025-02-24 17:13] VITALS: BP 122/62; PULSE 66; RESP 16; TEMP 36.8; O2SAT 96
[2025-02-24 21:59] VITALS: BP 148/53; PULSE 70
[2025-02-24] MEDS: MELATONIN 3 MG TABLET 1.5 MG PO (22:00)
[2025-02-24] MEDS: 0.9% Saline Lock 10 ML Syringe IV (22:02)
[2025-02-25 06:00] VITALS: BP 112/54; PULSE 61; RESP 16; TEMP 36.4; O2SAT 97
[2025-02-25] MEDS: Senna/Docusate Sodium 1 Tablet 2 TABLET PO (09:08)
[2025-02-25 09:09] VITALS: PULSE 61
[2025-02-25] MEDS: APIXABAN 2.5 MG TABLET (WCH) PO ×2 (09:09→22:40)
[2025-02-25 18:00] VITALS: BP 153/47; PULSE 67; RESP 18; TEMP 36.6; O2SAT 97
[2025-02-25 22:36] VITALS: BP 151/51; PULSE 71
[2025-02-25 22:39] VITALS: BP 151/51; PULSE 71
[2025-02-25] MEDS: MELATONIN 3 MG TABLET 1.5 MG PO (22:39)
[2025-02-25] MEDS: 0.9% Saline Lock 10 ML Syringe IV (22:46)
[2025-02-26 05:38] LABS: Hematocrit 24.4 % (37-47); Hemoglobin 8.4 g/dL (12.0-15.0)
[2025-02-26 06:00] VITALS: BP 147/55; PULSE 63; RESP 15; TEMP 36.9; O2SAT 94
[2025-02-26 06:47] LABS: Anion Gap 7 (5-15); BUN 12 mg/dL (4-19); BUN/Creat Ratio 23.8 RATIO (10-20); Calcium,Total 8.6 mg/dL (7.6-11.0); Carbon Dioxide 25.0 mmol/L (21.0-32.0); Chloride 101 mmol/L (98-108); Estimated Creatinine Clearance 51.41 ml/min (50-250); Glucose 126 mg/dL (70-99); Potassium 3.9 mmol/L (3.3-5.1); Vitamin B12 366 pg/mL (180-914)
--- NOTE | 2025-02-26 08:57 | PCM.PROGNOTE ---
Subjective Subjective Heather was seen on team rounds today. Her son Stoney was in attendance in the room. Afebrile VSS -blood pressure over the past 2 days has ranged from 112/54 to 153/47. Heart rate has ranged from 61-71. Maintaining appropriate oxygen saturation on RA Oral intake - FOOD good FLUIDS fair most days Discussed with nursing - no problems that need addressed. Sleeping well at night. Reviewed the THERAPY notes Medication list reviewed. All lab from this morning was personally reviewed. Hemoglobin is stable at 8.4. Sodium is up to 133 and the potassium is 3.9. BUN is 12 with a creatinine of 0.52 which is stable. Calcium is normal. B12 is normal at 366. The urine culture grew E. coli which is sensitive to nitrofurantoin. Stool is Hemoccult positive Heather denies dizziness, lightheadedness, cephalgia, chest pain, shortness of breath, nausea/vomiting/abdominal pain, dysuria and calf pain. She does have continued to have pain in the left thigh above the knee. Heather does not feel she will be able to go right home from rehab and she is agreeable to going to SNF if needed). Stoney is in agreement with this as well. Objective Data Objective Data Vital Signs: Vital Signs Temp Pulse Resp BP Pulse Ox O2 Del Method 98.4 F 63 15 147/55 H 94 Room Air 02/26/25 06:00 02/26/25 06:00 02/26/25 06:00 02/26/25 06:00 02/26/25 06:00 02/26/25 06:00 Oxygen Delivery Method Room Air Weight: 139 lb 1.787 oz Body Mass Index (BMI) 25.4 Intake & Output: Intake and Output for Last 24 Hours 02/24/25 02/25/25 02/26/25 23:59 23:59 23:59 Intake Total 1095 / 1095 870 / 870 220 / 220 Balance 1095 / 1095 870 / 870 220 / 220 Lab / Micro Data 02/26/25 05:21 02/26/25 05:21 Labs: Laboratory Results - last 24 hr 02/25/25 11:28: POC Glucose 214 H 02/25/25 16:54: POC Glucose 121 H 02/25/25 22:35: POC Glucose 184 H 02/26/25 05:21: Hgb 8.4 L, Hct 24.4 L, Sodium 133, Potassium 3.9, Chloride 101, Carbon Dioxide 25.0, Anion Gap 7, BUN 12, Creatinine 0.52 L, Estim Creat Clear Calc 51.41, Est GFR (MDRD) Non-Af 96, BUN/Creatinine Ratio 23.8 H, Glucose 126 H, Calcium 8.6, Vitamin B12 366 02/26/25 06:49: POC Glucose 121 H Micro: Microbiology 02/23/25 11:40 Urine, Catheterized Urine Culture - Final Escherichia coli 02/22/25 13:45 Stool Stool Occult Blood (JEREMY) - Final Occult Blood Positive Physical Exam Const alert Constitutional Narrative: Confused. Pleasant. Sitting in the recliner at the bedside and appears comfortable. General Appearance: cooperative HEENT Mouth: dry mucous membranes Resp clear to auscultation bilaterally Resp Narrative: CTA anterior. No conversational dyspnea. Not coughing. NO wheezing. Effort and Inspection: Negative for tachypneic Cardio regular rate, regular rhythm and no gallops Cardio Narrative: the heart MM is not as loud today. Still radiating to the LVOT, LLSB, apex and into the R carotid. No ectopy. EKG on Wednesday showed AF. She was started on Lopressor and is tolerating Lopressor with no bradycardia and no hypotension. Extremity Extremity Narrative: She has pitting edema of the L ankle. No edema on the R. No calf pain. Skin Rashes: no rashes Psych affect normal Attitude: No agitated Activity / Motor Behavior: Negative for restless Assessment & Plan Assessment/Plan (1) Debility: (2) Intertrochanteric fracture of left femur: QUALIFIERS: Encounter type: initial encounter Fracture alignment: displaced Fracture type: closed Qualified Code(s): S72.142A - Displaced intertrochanteric fracture of left femur, initial encounter for closed fracture (3) History of open reduction and internal fixation (ORIF) procedure: (4) Hyponatremia: (5) Anemia: QUALIFIERS: Anemia type: unspecified type Qualified Code(s): D64.9 - Anemia, unspecified (6) Vitamin D deficiency: (7) Hypothyroidism: QUALIFIERS: Hypothyroidism type: acquired Qualified Code(s): E03.9 - Hypothyroidism, unspecified (8) H/O thyroidectomy: (9) Diabetes mellitus, type 2: QUALIFIERS: Diabetes mellitus complication status: with other specified complication Diabetes mellitus predatory animal exterminator insulin use: without longterm use Qualified Code(s): E11.69 - Type 2 diabetes mellitus with other specified complication (10) Parkinson's disease: QUALIFIERS: Dyskinesia presence: without dyskinesia Fluctuating manifestations: unspecified whether manifestations fluctuate Qualified Code(s): G20.A1 - Parkinson's disease without dyskinesia, without mention of fluctuations PLAN: Parkinson's disease versus parkinsonism. (11) Cognitive dysfunction: PLAN: I suspect she has dementia. Hypothyroidism may be contributing to this but TSH is only mildly elevated. Will recommend neurology follow-up at discharge. We have not noticed her hallucinating. (12) Constipation: QUALIFIERS: Constipation type: unspecified constipation type Qualified Code(s): K59.00 - Constipation, unspecified (13) Occult blood in stools: (14) History of hemorrhoids: (15) Murmur, cardiac: (16) Hyperlipemia: QUALIFIERS: Hyperlipidemia type: unspecified Qualified Code(s): E78.5 - Hyperlipidemia, unspecified (17) Right carotid bruit: PLAN: Recommend carotid ultrasound as an outpatient. (18) Fecal incontinence: QUALIFIERS: Fecal incontinence type: full incontinence of feces Qualified Code(s): R15.9 - Full incontinence of feces (19) Urinary bladder incontinence: QUALIFIERS: Urinary Incontinence type: functional incontinence Qualified Code(s): R39.81 - Functional urinary incontinence (20) Paroxysmal atrial fibrillation: PLAN: this needs to be further evaluated by cardiology as an OP. Will need an ECHO to evaluate the MM and will also need an event monitor at [facility]. PLAN: Plan 1. Continue therapy 2. Finish 5 days of Macrobid. 3. Increase the Glucophage in the a.m. to 750 mg. Decrease Accu-Cheks to twice daily, fasting and 5 PM. Discontinue sliding scale insulin. 4. Unclear to me whether she has Parkinson's disease or parkinsonism secondary to dementia. Will refer to neurology for workup at discharge from rehab. 5. She will need a event monitor at [facility] from rehab. She has had PAF while on rehab. 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 Also will need a carotid US (can be done as an OP) for loud R carotid bruit.....vs radiation of MM Charges/Coding Visit Charges Inpatient E&M: 28336 Subs Hosp L2
[2025-02-26 09:07] VITALS: BP 147/55; PULSE 63
[2025-02-26] MEDS: APIXABAN 2.5 MG TABLET (WCH) PO ×2 (09:08→20:55)
--- NOTE | 2025-02-26 12:00 | ECHOD_ITS ---
Reason For Study Reason For Study: ATRIAL FIBRILLATION Procedure This was a 2D Doppler, Color Flow transthoracic echocardiogram. Exam performed portable in patient room. Left Ventricle Normal LV size. Left ventricular systolic function is normal. The left ventricular ejection fraction is 60 %. No regional wall motion abnormalities noted. Right Ventricle Normal RV size. Normal systolic function. Atria Normal left atrium. Normal right atrium. Mitral Valve Normal mitral valve. Mild (1+) eccentric mitral valve insufficiency. Tricuspid Valve Normal tricuspid valve. Mild tricuspid valve insufficiency. Pulmonary artery systolic pressure is 32 mmHg. Aortic Valve Trisinus/trileaflet aortic valve. Mild focal aortic valve calcification. Great Vessels Normal aortic root. The pulmonary artery is normal size. Inferior vena cava collapse with respiration. Pericardium/Pleural No pericardial effusion. MMode/2D Measurements & Calculations LVIDd: 4.2 cm IVSd: 0.99 cm LVOT diam: 1.9 cm LVIDs: 2.7 cm LVPWd: 1.0 cm LVOT area: 2.9 cm2 RVDd: 3.8 cm FS: 36.3 % asc Aorta Diam: 3.1 cm LAV(MOD-bp): 55.5 ml LVAd ap4: 19.5 cm2 LAV(MOD-bp) Indexed: 33.9 ml/m2 LVLd ap4: 7.0 cm LAV(MOD-sp2): 65.7 ml EDV(MOD-sp4): 46.5 ml LAV(MOD-sp4): 46.0 ml EDV(sp4-el): 45.9 ml LVAs ap4: 11.1 cm2 LVLs ap4: 6.0 cm ESV(MOD-sp4): 17.4 ml ESV(sp4-el): 17.4 ml EF(MOD-sp4): 62.5 % EF(sp4-el): 62.2 % SV(MOD-sp4): 29.1 ml SV(MOD-sp2): 33.4 ml LVAd ap2: 20.3 cm2 LVLd ap2: 6.7 cm SI(MOD-sp4): 17.8 ml/m2 SI(MOD-sp2): 20.4 ml/m2 EDV(MOD-sp2): 51.1 ml EDV(sp2-el): 51.9 ml LVAs ap2: 11.0 cm2 LVLs ap2: 5.6 cm ESV(MOD-sp2): 17.7 ml ESV(sp2-el): 18.3 ml EF(MOD-sp2): 65.3 % SV(sp4-el): 28.5 ml Ao sinus diam: 3.[address] Junction: 2.6 cm LA A4 area: 18.9 cm2 LA dimension(2D): 4.1 cm RA A4 area: 11.2 cm2 TAPSE: 2.1 cm Time Measurements MV dec time: 0.21 sec Doppler Measurements & Calculations MV E max shakir: 124.2 cm/sec Lat Peak E' Shakir: 10.5 cm/sec Med Peak E' Shakir: 6.1 cm/sec MV A max shakir: 57.2 cm/sec E/E' lat: 11.8 E/E' med: 20.4 MV E/A: 2.2 Ao V2 max: 161.8 cm/sec LV V1 max: 130.4 cm/sec MV dec slope: 580.0 cm/sec2 Ao max P.5 mmHg LV V1 max P.8 mmHg Ao V2 mean: 113.0 cm/sec LV V1 mean P.0 mmHg Ao mean P.7 mmHg LV V1 mean: 97.4 cm/sec Ao V2 VTI: 39.0 cm LV V1 VTI: 32.5 cm AV (velocity ratio): 0.83 KOFI(I,D): 2.4 cm2 KOFI(V,D): 2.3 cm2 SV(LVOT): 92.8 ml PA V2 max: 74.8 cm/sec TR max shakir: 268.5 cm/sec TR max P.8 mmHg ECHO/Echo Complete Interpretation Summary Normal LV size. Left ventricular systolic function is normal. The left ventricular ejection fraction is 60 %. Mild focal aortic valve calcification. Ordering Physician: Katie Bah Referring Physician: Candelario Santana Chi Performed By: Patricia Mckeon RDCS
--- NOTE | 2025-02-26 13:41 | CASEMGMT ---
Social Work IDT met with patient and son for Team meeting. Discussed patient's progress in PT/OT/ST/SN/MD. Educated to [employer] insurance with NRD 02/28, updating every 7 days with DC by 03/14. Pt scored 21/50 on BCAT and recommending assistance with meds and finances. Pt stated her son can assist. Son confirmed. HEATING AND VENTILATION ENGINEER provided private information with IDT that pt's education level likely impacted lower score. IDT also note son likely has lower skills and abilities at baseline as well. Pt and son live together, though, IDT voiced during team, the recommendations at DC are a SNF, at this time. Pt has continued stay to determine ongoing progress and DC recommendations. SW broached conversation at SNF, skilled, and for this worker to provide a list of options, if elected. Pt/son expressed understanding and agreeable to SNF plan. SW offered list of SNFs in preferred geographical area, INN with pt?s insurance, including quality and resource data via [employer]. Briefly discussed precert process. If denied, SW to assist with determining Medicaid eligibility. SW will continue to follow to assist with ongoing DC planning. Will ReTeam next week. Letitia Stewart ADJUSTER AND INSPECTOR MICROFILMING DOCUMENT PREPARER
[2025-02-26] MEDS: 0.9% Saline Lock 10 ML Syringe IV ×2 (17:01→21:53)
[2025-02-26 18:00] VITALS: BP 118/54; PULSE 70; RESP 16; TEMP 37.1; O2SAT 97
[2025-02-26 20:55] VITALS: PULSE 70
[2025-02-26] MEDS: MELATONIN 3 MG TABLET 1.5 MG PO (20:56)
[2025-02-27 06:00] VITALS: BP 111/49; PULSE 61; RESP 16; TEMP 36.8; O2SAT 98
[2025-02-27] MEDS: APIXABAN 2.5 MG TABLET (WCH) PO ×2 (08:48→21:07)
[2025-02-27 08:49] VITALS: PULSE 61
[2025-02-27] MEDS: 0.9% Saline Lock 10 ML Syringe IV ×2 (08:51→21:17)
[2025-02-27 18:00] VITALS: BP 145/45; PULSE 63; RESP 12; TEMP 36.9; O2SAT 97
[2025-02-27 21:05] VITALS: BP 166/54; PULSE 66
[2025-02-27 21:07] VITALS: BP 166/54; PULSE 66
[2025-02-27] MEDS: MELATONIN 3 MG TABLET 1.5 MG PO (21:08)
[2025-02-28 05:09] VITALS: BMI 25.1
[2025-02-28 05:10] VITALS: BP 139/55; PULSE 69; RESP 17; TEMP 36.4; O2SAT 97
[2025-02-28 07:58] VITALS: PULSE 69
[2025-02-28] MEDS: Senna/Docusate Sodium 1 Tablet 2 TABLET PO ×2 (07:59→20:02)
[2025-02-28] MEDS: APIXABAN 2.5 MG TABLET (WCH) PO ×2 (07:59→20:03)
--- NOTE | 2025-02-28 09:12 | PCM.PROGNOTE ---
Subjective Subjective Finished 5 days of Macrobid for acute cystitis Afebrile Heart rate is within normal limits Diastolic blood pressure is always within goal however the systolic is sometimes elevated and over the past 24 hours has ranged from 111-166. Maintaining appropriate oxygen saturation on room air Good appetite. Fair to good fluid intake. Having regular bowel movements. Blood sugars are very well-controlled with no hypoglycemia. Currently on Glucophage 750 mg once daily in the AM. The medication list was reviewed. Therapy notes were reviewed. Only complaint is left knee pain and this has been a persistent complaint. Denies chest pain, palpitations, shortness of breath, cough, calf pain, dysuria. I reviewed the results of the echocardiogram. EF is 60%. No wall motion abnormalities. Normal right ventricular size and function. No atrial enlargement. +1 MR and mild TR. Pulmonary artery pressure was estimated at 32. Trileaflet aortic valve with some mild valve calcification but no aortic stenosis. Objective Data Objective Data Vital Signs: Vital Signs Temp Pulse Resp BP Pulse Ox O2 Del Method 97.6 F L 69 17 139/55 H 97 Room Air 02/28/25 05:10 02/28/25 07:58 02/28/25 05:10 02/28/25 05:10 02/28/25 05:10 02/28/25 05:10 Oxygen Delivery Method Room Air Weight: 136 lb 9.6 oz Body Mass Index (BMI) 25.1 Intake & Output: Intake and Output for Last 24 Hours 02/26/25 02/27/25 02/28/25 23:59 23:59 23:59 Intake Total 1556 / 1556 1460 / 1460 640 / 640 Output Total 100 / 100 Balance 1456 / 1456 1460 / 1460 640 / 640 Lab / Micro Data 02/26/25 05:21 02/26/25 05:21 Labs: Laboratory Results - last 24 hr 02/27/25 17:21: POC Glucose 112 H 02/28/25 06:32: POC Glucose 106 Micro: Microbiology 02/23/25 11:40 Urine, Catheterized Urine Culture - Final Escherichia coli 02/22/25 13:45 Stool Stool Occult Blood (JEREMY) - Final Occult Blood Positive Radiography Diagnostic Testing: Radiology Impression Echocardiogram 02/26/25 12:00 Interpretation Summary Normal LV size. Left ventricular systolic function is normal. The left ventricular ejection fraction is 60 %. Mild focal aortic valve calcification. Ordering Physician: Katie Bah Referring Physician: Candelario Santana Chi Performed By: Patricia Mckeon RDCS Physical Exam Const alert Constitutional Narrative: Confused. Pleasant. Sitting in the recliner at the bedside and appears comfortable. General Appearance: cooperative Resp clear to auscultation bilaterally Resp Narrative: CTA anterior. No conversational dyspnea. Not coughing. NO wheezing. Effort and Inspection: Negative for tachypneic Cardio regular rate, regular rhythm and no gallops Extremity Extremity Narrative: She has pitting edema of the L ankle. No edema on the R. No calf pain. The left knee is a little swollen but, no redness and no DC from the distal thigh incision. No significant pain in the quadriceps. No calf tenderness. Skin Rashes: no rashes Psych affect normal Attitude: No agitated Activity / Motor Behavior: Negative for restless Assessment & Plan Assessment/Plan (1) Debility: (2) Intertrochanteric fracture of left femur: QUALIFIERS: Encounter type: initial encounter Fracture type: closed Fracture alignment: displaced Qualified Code(s): S72.142A - Displaced intertrochanteric fracture of left femur, initial encounter for closed fracture (3) History of open reduction and internal fixation (ORIF) procedure: (4) Hyponatremia: (5) Anemia: QUALIFIERS: Anemia type: unspecified type Qualified Code(s): D64.9 - Anemia, unspecified (6) Vitamin D deficiency: (7) Hypothyroidism: QUALIFIERS: Hypothyroidism type: acquired Qualified Code(s): E03.9 - Hypothyroidism, unspecified (8) H/O thyroidectomy: (9) Diabetes mellitus, type 2: QUALIFIERS: Diabetes mellitus complication status: with other specified complication Diabetes mellitus buttermaker continuous churn insulin use: without buttermaker continuous churn use Qualified Code(s): E11.69 - Type 2 diabetes mellitus with other specified complication (10) Parkinson's disease: QUALIFIERS: Dyskinesia presence: without dyskinesia Fluctuating manifestations: unspecified whether manifestations fluctuate Qualified Code(s): G20.A1 - Parkinson's disease without dyskinesia, without mention of fluctuations (11) Cognitive dysfunction: (12) Constipation: QUALIFIERS: Constipation type: unspecified constipation type Qualified Code(s): K59.00 - Constipation, unspecified (13) Occult blood in stools: (14) History of hemorrhoids: (15) Murmur, cardiac: (16) Hyperlipemia: QUALIFIERS: Hyperlipidemia type: unspecified Qualified Code(s): E78.5 - Hyperlipidemia, unspecified (17) Right carotid bruit: (18) Fecal incontinence: QUALIFIERS: Fecal incontinence type: full incontinence of feces Qualified Code(s): R15.9 - Full incontinence of feces (19) Urinary bladder incontinence: QUALIFIERS: Urinary Incontinence type: functional incontinence Qualified Code(s): R39.81 - Functional urinary incontinence (20) Paroxysmal atrial fibrillation: PLAN: Plan 1. Continue therapy 2. Change the tramadol to 25 mg twice daily at 7 AM and 9 PM. 3. Continue Glucophage at 750 mg daily 4. Start arthritis compounded cream 3 times daily to the left knee for local pain control. 5. Systolics are mildly increased but the diastolic is always within goal. She has been on metoprolol 12.5 mg twice daily since February 23 and this was started because of paroxysmal atrial fibrillation. She has been in normal sinus rhythm every time I have checked her since then. Change the dose to 25 mg BID and continue to monitor the HR and BP. would like to see the systolic consistently < 140. She has had documented AF while on rehab. Has had no recurrence since last Wednesday that I am aware of. Has been in a regular rhythm every time I have examined her since last Wednesday. Consider a holtor as OP. Charges/Coding Visit Charges Inpatient E&M: 53010 Subs Hosp L1
[2025-02-28] MEDS: Arthritis Pain Compound 60 CLICK TUBE TOPICAL ×2 (13:53→20:07)
[2025-02-28 18:00] VITALS: BP 136/44; PULSE 72; RESP 17; TEMP 36.8; O2SAT 98
[2025-02-28 19:40] VITALS: BP 185/65; PULSE 70; PULSE 72; RESP 17; O2SAT 98
[2025-02-28] MEDS: MELATONIN 3 MG TABLET 1.5 MG PO (20:04)
[2025-02-28 20:08] VITALS: BP 185/65; PULSE 70
[2025-02-28] MEDS: 0.9% Saline Lock 10 ML Syringe IV (22:40)
[2025-03-01] MEDS: Arthritis Pain Compound 60 CLICK TUBE TOPICAL ×3 (05:19→20:50)
[2025-03-01 06:00] VITALS: BP 174/60; PULSE 65; RESP 17; TEMP 37; O2SAT 98
[2025-03-01] MEDS: APIXABAN 2.5 MG TABLET (WCH) PO ×2 (09:02→20:45)
[2025-03-01] MEDS: Senna/Docusate Sodium 1 Tablet 2 TABLET PO (09:02)
[2025-03-01 09:03] VITALS: BP 132/44; PULSE 64
--- NOTE | 2025-03-01 10:33 | PCM.PROGNOTE ---
Subjective Subjective Afebrile. The blood pressure over the past 24 hours has ranged from 136/44 to 185/65. Blood pressure this a.m. was 132/44. More often than not the systolic is elevated. Heart rate has ranged from 64-72. Food and fluid intake are good. Having regular bowel movements. Left leg buckling with therapy today. Blood sugars are well-controlled on metformin 750 mg daily with no hypoglycemia. She denies knee pain today........we have been using arthritis cream on the knee and she did not complain today. She denies shortness of breath, cough, chest pain, lightheadedness, nausea/vomiting/abdominal pain, dysuria and calf tenderness. Objective Data Objective Data Vital Signs: Vital Signs Temp Pulse Resp BP Pulse Ox O2 Del Method 98.6 F 64 17 132/44 H 98 Room Air 03/01/25 06:00 03/01/25 09:03 03/01/25 06:00 03/01/25 09:03 03/01/25 06:00 03/01/25 06:00 Oxygen Delivery Method Room Air Weight: 136 lb 9.6 oz Body Mass Index (BMI) 25.1 Intake & Output: Intake and Output for Last 24 Hours 02/27/25 02/28/25 03/01/25 23:59 23:59 23:59 Intake Total 1460 / 1460 1880 / 1880 440 / 440 Output Total 100 / 100 Balance 1460 / 1460 1780 / 1780 440 / 440 Lab / Micro Data 02/26/25 05:21 02/26/25 05:21 Labs: Laboratory Results - last 24 hr 03/01/25 06:39: POC Glucose 115 H Micro: Microbiology 02/23/25 11:40 Urine, Catheterized Urine Culture - Final Escherichia coli 02/22/25 13:45 Stool Stool Occult Blood (JEREMY) - Final Occult Blood Positive Physical Exam Const alert Constitutional Narrative: pleasant and appropriate. General Appearance: cooperative Resp normal respiratory effort Resp Narrative: coarse crackles in the bases (mostly cleared after a few deep breaths), otherwise CTA. Effort and Inspection: Negative for tachypneic Cardio regular rate, regular rhythm and no gallops Cardio Narrative: no change in the systolic MM GI normal to inspection, nondistended, normoactive bowel sounds, soft to palpation and non-tender Extremity Extremity Narrative: the edema in the LLE is increased today. She has pitting of the posterior thigh and the ankle in increased in size and is pitting. Skin Rashes: no rashes Wound Narrative: Incisions are intact and oscar are in place. No dehiscence. small amount of serous DC from the proximal incision. No osiris-incisional erythema. Assessment & Plan Assessment/Plan (1) Debility: (2) Intertrochanteric fracture of left femur: QUALIFIERS: Encounter type: initial encounter Fracture type: closed Fracture alignment: displaced Qualified Code(s): S72.142A - Displaced intertrochanteric fracture of left femur, initial encounter for closed fracture (3) History of open reduction and internal fixation (ORIF) procedure: (4) Hyponatremia: (5) Anemia: QUALIFIERS: Anemia type: unspecified type Qualified Code(s): D64.9 - Anemia, unspecified (6) Vitamin D deficiency: (7) Hypothyroidism: QUALIFIERS: Hypothyroidism type: acquired Qualified Code(s): E03.9 - Hypothyroidism, unspecified (8) Diabetes mellitus, type 2: QUALIFIERS: Diabetes mellitus complication status: with other specified complication Diabetes mellitus beef grinder insulin use: without beef grinder use Qualified Code(s): E11.69 - Type 2 diabetes mellitus with other specified complication (9) Parkinson's disease: QUALIFIERS: Dyskinesia presence: without dyskinesia Fluctuating manifestations: unspecified whether manifestations fluctuate Qualified Code(s): G20.A1 - Parkinson's disease without dyskinesia, without mention of fluctuations (10) Cognitive dysfunction: (11) Occult blood in stools: (12) Right carotid bruit: (13) Fecal incontinence: QUALIFIERS: Fecal incontinence type: full incontinence of feces Qualified Code(s): R15.9 - Full incontinence of feces (14) Urinary bladder incontinence: QUALIFIERS: Urinary Incontinence type: functional incontinence Qualified Code(s): R39.81 - Functional urinary incontinence (15) Paroxysmal atrial fibrillation: PLAN: Plan 1. Continue therapy 2. Increase metoprolol to 25 mg twice daily 3. Change Accu-Cheks to as needed. Continue metformin 750 mg daily. 4. Check a BMP, magnesium and HH on Wednesday 5. Venous ultrasound of the left lower extremity today. Charges/Coding Visit Charges Inpatient E&M: 57824 [facility] Hosp L1
--- NOTE | 2025-03-01 11:41 | VDLE_ITS ---
Reason For Study Reason For Study: LLE Swelling Procedure LEFT This is a venous duplex using B-mode, color flow and GSV is normal. spectral Doppler. CFV is compressible, spontaneous, competent, and Exam performed portable in patient room. demonstrates pulsatile venous flow. The study was technically difficult. FV is compressible, spontaneous, competent and A preliminary report was called and/or faxed to Rehab demonstrates pulsatile venous flow. RN. POP V is compressible, spontaneous, competent and demonstrates pulsatile venous flow. T/P Trunk is compressible. PTV is compressible. LT PerV is compressible. VL/Venous Duplex US, Unilateral Interpretation Summary Deep veins of the left lower extremity are patent and compressible segmentally. There is no evidence of left lower extremity deep vein thrombosis. The left great saphenous vein appears patent an d compressible segmentally. Ordering Physician: Katie Bah Referring Physician: Candelario Santana Chi Performed By: Roman Fish RVT
[2025-03-01 12:01] VITALS: BP 166/58; PULSE 61
[2025-03-01 18:00] VITALS: BP 154/58; PULSE 64; RESP 16; TEMP 36.6; O2SAT 98
[2025-03-01] MEDS: 0.9% Saline Lock 10 ML Syringe IV (19:51)
[2025-03-01 20:45] VITALS: BP 176/61; PULSE 64; RESP 16; O2SAT 98
[2025-03-01] MEDS: MELATONIN 3 MG TABLET 1.5 MG PO (20:45)
[2025-03-01 20:47] VITALS: BP 176/61; PULSE 64
[2025-03-02 05:00] VITALS: BP 176/59; PULSE 61; RESP 16; TEMP 36.6; O2SAT 98
[2025-03-02] MEDS: Arthritis Pain Compound 60 CLICK TUBE TOPICAL ×3 (09:46→20:55)
[2025-03-02 09:47] VITALS: BP 176/59; PULSE 61
[2025-03-02] MEDS: APIXABAN 2.5 MG TABLET (WCH) PO ×2 (09:47→20:55)
[2025-03-02] MEDS: Ergocalciferol 1.25 MG (50, 000 UNIT) Capsule PO (09:49)
--- NOTE | 2025-03-02 14:15 | RAD_ITS ---
PROCEDURE: PELVIS 1 OR 2 VIEWS 03/02/2025 REASON FOR EXAM: STATUS POST GAMMA NAIL TECHNIQUE: PELVIS 1 OR 2 VIEWS COMPARISON: 03/02/2025. FINDINGS: No evidence of acute fracture or dislocation. Left femoral internal fixation. There are degenerative changes of the bilateral hips. Partially visualized degenerative changes of the spine. RAD/Pelvis 1 or 2 Views IMPRESSION: Left femoral internal fixation. Reading Location: [id number]
--- NOTE | 2025-03-02 14:15 | RAD_ITS ---
PROCEDURE: FEMUR MIN 2 VIEWS 03/02/2025 REASON FOR EXAM: STATUS POST LONG GAMMA NAIL TECHNIQUE: FEMUR MIN 2 VIEWS COMPARISON: None. FINDINGS: Left femoral internal fixation spanning a left proximal femoral fracture. No evidence of acute complication. RAD/Femur Min 2 Views IMPRESSION: Intact left femoral internal fixation. Reading Location: [place] [id number]
[2025-03-02] MEDS: NIFEdipine 30 MG Tablet PO (17:40)
[2025-03-02 17:58] VITALS: BP 134/39; PULSE 61; RESP 16; TEMP 36.7; O2SAT 99
--- NOTE | 2025-03-02 18:14 | NURSING ---
Contact Jo Vizcarra regarding staple removal and she reports okay to remove today. 25 oscar removed and patient tolerated well. No redness noted to incision site. Some swelling and scant amount of serous drainage from top of middle incision. Incision MAYRA with steri-strips.
[2025-03-02 20:40] VITALS: BP 114/44; BP 172/55; PULSE 61; PULSE 64; PULSE 65; RESP 16; O2SAT 99
[2025-03-02] MEDS: MELATONIN 3 MG TABLET 1.5 MG PO (20:52)
[2025-03-02 20:54] VITALS: BP 172/55; PULSE 64
[2025-03-03] MEDS: Arthritis Pain Compound 60 CLICK TUBE TOPICAL ×3 (05:51→22:12)
[2025-03-03 08:39] VITALS: BP 103/32; PULSE 61
[2025-03-03] MEDS: APIXABAN 2.5 MG TABLET (WCH) PO ×2 (08:39→22:12)
[2025-03-03] MEDS: NIFEdipine 30 MG Tablet PO (08:41)
[2025-03-03 18:03] VITALS: BP 111/38; PULSE 60; RESP 16; TEMP 36.6; O2SAT 100
[2025-03-03] MEDS: MELATONIN 3 MG TABLET 1.5 MG PO (22:12)
[2025-03-03 22:15] VITALS: BP 140/52; PULSE 71
[2025-03-04 06:00] VITALS: BP 144/49; PULSE 66; RESP 17; TEMP 36.5; O2SAT 97
[2025-03-04] MEDS: Arthritis Pain Compound 60 CLICK TUBE TOPICAL ×3 (06:03→22:36)
[2025-03-04] MEDS: NIFEdipine 30 MG Tablet PO (08:00)
[2025-03-04 08:01] VITALS: BP 124/42; PULSE 62
[2025-03-04] MEDS: APIXABAN 2.5 MG TABLET (WCH) PO ×2 (08:01→22:36)
[2025-03-04] MEDS: Senna/Docusate Sodium 1 Tablet 2 TABLET PO ×2 (08:01→22:38)
[2025-03-04 17:58] VITALS: BP 105/38; PULSE 62; RESP 16; TEMP 36.9; O2SAT 99
[2025-03-04 22:30] VITALS: BP 152/55; PULSE 73; RESP 14; TEMP 36.5; O2SAT 100
[2025-03-04 22:37] VITALS: BP 152/55; PULSE 73
[2025-03-04] MEDS: MELATONIN 3 MG TABLET 1.5 MG PO (22:37)
[2025-03-05 06:00] VITALS: BP 135/50; PULSE 63; RESP 16; TEMP 36.5; O2SAT 98
[2025-03-05] MEDS: 0.9% Saline Lock 10 ML Syringe IV (06:38)
[2025-03-05] MEDS: Arthritis Pain Compound 60 CLICK TUBE TOPICAL ×3 (06:38→20:35)
[2025-03-05 06:44] LABS: Anion Gap 11 (5-15); BUN 17 mg/dL (4-19); BUN/Creat Ratio 31.2 RATIO (10-20); Calcium,Total 9.2 mg/dL (7.6-11.0); Carbon Dioxide 21.2 mmol/L (21.0-32.0); Chloride 102 mmol/L (98-108); Estimated Creatinine Clearance 50.99 ml/min (50-250); Glucose 90 mg/dL (70-99); Magnesium 1.9 mg/dL (1.5-2.2); Potassium 4.1 mmol/L (3.3-5.1)
[2025-03-05 07:52] LABS: Hematocrit 27.0 % (37-47); Hemoglobin 9.5 g/dL (12.0-15.0)
[2025-03-05 08:24] VITALS: BP 130/62; PULSE 63
[2025-03-05] MEDS: APIXABAN 2.5 MG TABLET (WCH) PO ×2 (08:24→20:32)
[2025-03-05] MEDS: NIFEdipine 30 MG Tablet PO (08:24)
[2025-03-05] MEDS: Senna/Docusate Sodium 1 Tablet 2 TABLET PO (08:25)
--- NOTE | 2025-03-05 11:38 | PCM.PROGNOTE ---
Subjective Subjective Heather was seen on team rounds today. Her son Roman participated by phone and son Stoney was present in the room. All their questions were answered to their satisfaction. Afebrile VSS -blood pressure over the past 24 hours has ranged from 105/38 to 152/55. Heart rate has ranged from 62-73. Just recently started on Procardia XL 30 mg daily....has had a total of 3 doses. Maintaining appropriate oxygen saturation on RA Oral intake - FOOD good FLUIDS fair to good Discussed with nursing - no problems that need addressed Reviewed the THERAPY notes Medication list reviewed. All lab drawn this morning was personally reviewed. Hemoglobin is 9.5, up from 8.4 on 02/26/2025. Sodium is 134 and stable. The potassium is 4.1. The BUN is 17 and creatinine is stable at 0.5. Magnesium is 1.9 and calcium is within normal limits. Heather's only complaint is pain in the Left leg.........mostly when she is up and doing therapy. It is not keeping her up and night and she tells me that she is sleeping well. She denies lightheadedness, cephalgia, chest pain, shortness of breath, cough, nausea/vomiting/abdominal pain, dysuria and calf pain. She is currently getting acetaminophen 1 g every 8 hours and tramadol 25 mg in the a.m. and at bedtime for pain control. Objective Data Objective Data Vital Signs: Vital Signs Temp Pulse Resp BP Pulse Ox O2 Del Method 97.7 F L 63 16 130/62 H 98 Room Air 03/05/25 06:00 03/05/25 08:24 03/05/25 06:00 03/05/25 08:24 03/05/25 06:00 03/05/25 06:00 Oxygen Delivery Method Room Air Weight: 136 lb 9.6 oz Body Mass Index (BMI) 25.1 Intake & Output: Intake and Output for Last 24 Hours 03/03/25 03/04/25 03/05/25 23:59 23:59 23:59 Intake Total 850 / 850 1870 / 1870 990 / 990 Output Total 2 / 2 Balance 850 / 850 1868 / 1868 990 / 990 Lab / Micro Data 03/05/25 05:12 03/05/25 05:12 Labs: Laboratory Results - last 24 hr 03/05/25 05:12: Hgb 9.5 L, Hct 27.0 L, Sodium 134, Potassium 4.1, Chloride 102, Carbon Dioxide 21.2, Anion Gap 11, BUN 17, Creatinine 0.54 L, Estim Creat Clear Calc 50.99, Est GFR (MDRD) Non-Af 95, BUN/Creatinine Ratio 31.2 H, Glucose 90, Calcium 9.2, Magnesium 1.9 Micro: Microbiology 02/23/25 11:40 Urine, Catheterized Urine Culture - Final Escherichia coli 02/22/25 13:45 Stool Stool Occult Blood (JEREMY) - Final Occult Blood Positive Physical Exam Const alert Constitutional Narrative: pleasant and appropriate. General Appearance: cooperative Resp normal respiratory effort Resp Narrative: coarse crackles in the bases (mostly cleared after a few deep breaths), otherwise CTA. Effort and Inspection: Negative for tachypneic Cardio regular rate, regular rhythm and no gallops Cardio Narrative: no change in the systolic MM GI normal to inspection, nondistended, normoactive bowel sounds, soft to palpation and non-tender Extremity Extremity Narrative: Still with edema that is pitting in the left lower extremity. Patient does not elevate her legs when she is seated in a chair and so they are dependent most of the day. Venous ultrasound of the left lower extremity last week was negative for deep vein thrombosis. Only trace edema in the right ankle. Skin Rashes: no rashes Wound Narrative: Incisions are intact and oscar are in place. No dehiscence. small amount of serous DC from the proximal incision. No osiris-incisional erythema. Assessment & Plan Assessment/Plan (1) Debility: (2) Intertrochanteric fracture of left femur: QUALIFIERS: Encounter type: initial encounter Fracture type: closed Fracture alignment: displaced Qualified Code(s): S72.142A - Displaced intertrochanteric fracture of left femur, initial encounter for closed fracture (3) History of open reduction and internal fixation (ORIF) procedure: (4) Hyponatremia: (5) Anemia: QUALIFIERS: Anemia type: unspecified type Qualified Code(s): D64.9 - Anemia, unspecified (6) Vitamin D deficiency: (7) Hypothyroidism: QUALIFIERS: Hypothyroidism type: acquired Qualified Code(s): E03.9 - Hypothyroidism, unspecified (8) Diabetes mellitus, type 2: QUALIFIERS: Diabetes mellitus complication status: with other specified complication Diabetes mellitus fci insulin use: without intermodal owner operator truck driver use Qualified Code(s): E11.69 - Type 2 diabetes mellitus with other specified complication (9) Parkinson's disease: QUALIFIERS: Dyskinesia presence: without dyskinesia Fluctuating manifestations: unspecified whether manifestations fluctuate Qualified Code(s): G20.A1 - Parkinson's disease without dyskinesia, without mention of fluctuations (10) Cognitive dysfunction: (11) Occult blood in stools: (12) Right carotid bruit: (13) Fecal incontinence: QUALIFIERS: Fecal incontinence type: full incontinence of feces Qualified Code(s): R15.9 - Full incontinence of feces (14) Urinary bladder incontinence: QUALIFIERS: Urinary Incontinence type: functional incontinence Qualified Code(s): R39.81 - Functional urinary incontinence (15) Paroxysmal atrial fibrillation: PLAN: since she has been on Metoprolol I have not detected any AF anytime I have seen her. Will need a holtor monitor or event monitor at [facility]. PLAN: Plan 1. Continue therapy 2. Increase the tramadol to 3 times daily at 7 AM, 2 PM and 9 PM. Continue acetaminophen and the arthritis compounded cream to the knee. 3. Continue to monitor the blood pressure. It seems to be improving with the addition of nicardipine to her drug regimen. 4. Plan is for care home at discharge as Stoney does not feel he can adequately care for her at home at this point. The patient agrees with this and is willing to go to a care home facility. 5. Will need a TSH and T4 in 6 weeks. 6. Recommend follow-up with neurology for cognitive impairment. Charges/Coding Visit Charges Inpatient E&M: 22370 Subs Hosp L2
--- NOTE | 2025-03-05 12:49 | CASEMGMT ---
Addendum entered by Letitia Stewart 03/05/25 15:35: SW returned to pt's room. Pt and son completed MINDA checklist. Pt appears to qualify for Medicaid. SW educated to completing a referral to [facility]. Pt agreeable. Pt chose SNF as [facility]. SW to place referral. - SW sent referral to [facility] via [employer]Port. SW sent referral to Ebony at [facility]. Original Note: Social Work IDT met with patient at bedside. Phoned Stoney, but he did not answer. Phoned Roman and he participated via conference call. Discussed patient's progress in PT/OT/ST/SN/MD. Shortly after start of meeting, Stoney arrived and participated at bedside. [facility]. Pt/son confirmed DC date. Discussed patient needing 24/7 care and too much assist for son to care for pt at home. Pt and sons in agreement pt will need a SNF. SW educated to [facility] precert process for SNF care, if denied, pt would pay OOP or apply for Medicaid. SW provided list of SNFs in preferred geographical area, INN with pt?s insurance, including quality and resource data via CarePort Guide. SW provided Medicaid checklist screening tool to determine elgibility. Son and pt to complete and review and notify this worker with outcomes/choices. SW will continue to follow. Plan: DC 03/09 to SNF Letitia Stewart BRAND MARKETING MANAGER FEED MIXER HELPER
--- NOTE | 2025-03-05 13:18 | PCM.PN.ORT ---
Subjective Subjective Postop 2 weeks status post left hip long gamma nail for IT plus subtrochanteric fracture. Patient was seen today in the rehab unit. Patient was working with physical therapy upon entry. Patient continues to do well with very minimal pain. Therapy reports that she is walking approximately 20 feet at a time. Oscar were removed last week. Patient says that she primarily has pain with positioning in bed. Denies any incision concerns. Patient denies any recent lightheadedness, fatigue, dizziness. She denies any recent transfusions. To recall when the patient was admitted she was given 2 units of packed red blood cells. Objective Data Objective Data Vital Signs: Vital Signs Temp Pulse Resp BP Pulse Ox O2 Del Method 97.7 F L 63 16 130/62 H 98 Room Air 03/05/25 06:00 03/05/25 08:24 03/05/25 06:00 03/05/25 08:24 03/05/25 06:00 03/05/25 06:00 Oxygen Delivery Method Room Air Weight: 136 lb 9.6 oz Body Mass Index (BMI) 25.1 Intake & Output: Intake and Output for Last 24 Hours 03/03/25 03/04/25 03/05/25 23:59 23:59 23:59 Intake Total 850 / 850 1870 / 1870 990 / 990 Output Total 2 / 2 Balance 850 / 850 1868 / 1868 990 / 990 Lab / Micro Data 03/05/25 05:12 03/05/25 05:12 Labs: Laboratory Results - last 24 hr 03/05/25 05:12: Hgb 9.5 L, Hct 27.0 L, Sodium 134, Potassium 4.1, Chloride 102, Carbon Dioxide 21.2, Anion Gap 11, BUN 17, Creatinine 0.54 L, Estim Creat Clear Calc 50.99, Est GFR (MDRD) Non-Af 95, BUN/Creatinine Ratio 31.2 H, Glucose 90, Calcium 9.2, Magnesium 1.9 Micro: Microbiology 02/23/25 11:40 Urine, Catheterized Urine Culture - Final Escherichia coli 02/22/25 13:45 Stool Stool Occult Blood (JEREMY) - Final Occult Blood Positive Physical Exam Narrative Distal neurovascular exam is intact in left lower extremity. Physical examination of the left hip shows well-healed and dried surgical incisions with no redness, swelling, discharge. No oscar. Patient has full range of motion of her bilateral ankles and knees. No significant edema. Const alert, oriented x3 and no apparent distress Assessment & Plan Assessment/Plan (1) Status post hip surgery: PLAN: Plan Postop 2 weeks left hip long gamma nail. Obtained and reviewed x-rays last week which show prosthesis in good position. Patient continues to work with therapy at the rehab unit. Patient unsure of when she will return home. Patient was prior living with her son. Patient will follow-up in the clinic for 6-week follow-up. Patient is in agreement.
[2025-03-05 16:54] VITALS: BP 133/45; PULSE 61; RESP 16; TEMP 36.8; O2SAT 99
[2025-03-05 20:30] VITALS: BP 147/67; PULSE 75; RESP 16; O2SAT 99
[2025-03-05] MEDS: MELATONIN 3 MG TABLET 1.5 MG PO (20:31)
[2025-03-05 20:33] VITALS: BP 147/67; PULSE 75
[2025-03-06] VITALS (8 sets, daily range): BP systolic 91–167; BP diastolic 41–76; PULSE 56–70; RESP 16–17; TEMP 36.6–36.7; O2SAT 96–99
[2025-03-06] MEDS: Arthritis Pain Compound 60 CLICK TUBE TOPICAL ×3 (06:48→21:14)
[2025-03-06] MEDS: NIFEdipine 30 MG Tablet PO (09:14)
[2025-03-06] MEDS: APIXABAN 2.5 MG TABLET (WCH) PO ×2 (09:15→21:15)
[2025-03-06] MEDS: 0.9% Saline Lock 10 ML Syringe IV (09:18)
--- NOTE | 2025-03-06 11:50 | PCM.PROGNOTE ---
Subjective Subjective Afebrile VSS -mild systolic hypertension. Diastolics are always within goal. Orthostatics were mildly positive today. Maintaining appropriate oxygen saturation on RA Oral intake - FOOD 75 to 100% of most meals FLUIDS good Still incontinent of both urine and stool. Discussed with nursing - no problems that need addressed Reviewed the THERAPY notes Medication list reviewed. Heather tells me that her pain is getting better and she was able to do therapy today with only a little increase in pain. She denies pain when she is sitting in the recliner at rest. She denies lightheadedness, cough, shortness of breath, chest pain, dysuria and calf pain. Objective Data Objective Data Vital Signs: Vital Signs Temp Pulse Resp BP Pulse Ox O2 Del Method 97.9 F 70 17 146/76 H 99 Room Air 03/06/25 06:00 03/06/25 10:14 03/06/25 09:22 03/06/25 10:14 03/06/25 09:22 03/06/25 09:22 Oxygen Delivery Method Room Air Weight: 136 lb 9.6 oz Body Mass Index (BMI) 25.1 Intake & Output: Intake and Output for Last 24 Hours 03/04/25 03/05/25 03/06/25 23:59 23:59 23:59 Intake Total 1870 / 1870 2120 / 2120 180 / 180 Output Total 2 / 2 4 / 4 Balance 1868 / 1868 2116 / 2116 180 / 180 Lab / Micro Data 03/05/25 05:12 03/05/25 05:12 Micro: Microbiology 02/23/25 11:40 Urine, Catheterized Urine Culture - Final Escherichia coli 02/22/25 13:45 Stool Stool Occult Blood (JEREMY) - Final Occult Blood Positive Physical Exam Const alert Constitutional Narrative: pleasant and appropriate. General Appearance: cooperative HEENT Mouth: dry mucous membranes Resp normal respiratory effort Resp Narrative: coarse crackles in the bases (mostly cleared after a few deep breaths), otherwise CTA. Effort and Inspection: Negative for tachypneic Cardio regular rate, regular rhythm and no gallops Cardio Narrative: no change in the systolic MM GI normal to inspection, nondistended, normoactive bowel sounds, soft to palpation and non-tender Extremity no calf tenderness Extremity Narrative: Still with edema of the left lower extremity but she always has her legs dependent when she is sitting in the recliner. No edema in the right ankle. No pain with compression of the left calf. Venous ultrasound was negative for DVT last week. Skin Rashes: no rashes Wound Narrative: Incisions are intact and oscar are in place. No dehiscence. small amount of serous DC from the proximal incision. No osiris-incisional erythema. Assessment & Plan Assessment/Plan (1) Debility: (2) Intertrochanteric fracture of left femur: QUALIFIERS: Encounter type: initial encounter Fracture type: closed Fracture alignment: displaced Qualified Code(s): S72.142A - Displaced intertrochanteric fracture of left femur, initial encounter for closed fracture (3) History of open reduction and internal fixation (ORIF) procedure: (4) Hyponatremia: (5) Anemia: QUALIFIERS: Anemia type: unspecified type Qualified Code(s): D64.9 - Anemia, unspecified (6) Vitamin D deficiency: (7) Hypothyroidism: QUALIFIERS: Hypothyroidism type: acquired Qualified Code(s): E03.9 - Hypothyroidism, unspecified (8) Diabetes mellitus, type 2: QUALIFIERS: Diabetes mellitus complication status: with other specified complication Diabetes mellitus extermination supervisor insulin use: without extermination supervisor use Qualified Code(s): E11.69 - Type 2 diabetes mellitus with other specified complication (9) Parkinson's disease: QUALIFIERS: Dyskinesia presence: without dyskinesia Fluctuating manifestations: unspecified whether manifestations fluctuate Qualified Code(s): G20.A1 - Parkinson's disease without dyskinesia, without mention of fluctuations (10) Cognitive dysfunction: (11) Occult blood in stools: (12) Right carotid bruit: (13) Fecal incontinence: QUALIFIERS: Fecal incontinence type: full incontinence of feces Qualified Code(s): R15.9 - Full incontinence of feces (14) Urinary bladder incontinence: QUALIFIERS: Urinary Incontinence type: functional incontinence Qualified Code(s): R39.81 - Functional urinary incontinence (15) Paroxysmal atrial fibrillation: (16) Orthostatic hypotension: PLAN: Plan 1. Continue therapy 2. Plan discharge for Wednesday to [facility] 3. Hold Procardia if the systolic is less than 110 4. Continue metoprolol 25 mg twice daily in light of paroxysmal atrial fibrillation while on rehab. Plan event monitor at discharge. Encouraged her to increase her fluid intake today. Charges/Coding Visit Charges Inpatient E&M: 59306 Subs Hosp L1
[2025-03-06] MEDS: MELATONIN 3 MG TABLET 1.5 MG PO (21:15)
[2025-03-06] MEDS: Senna/Docusate Sodium 1 Tablet 2 TABLET PO (21:15)
[2025-03-07] MEDS: Arthritis Pain Compound 60 CLICK TUBE TOPICAL ×3 (05:16→21:08)
[2025-03-07 06:00] VITALS: BP 104/42; PULSE 59; RESP 18; TEMP 36.7; O2SAT 96; BMI 23.5
[2025-03-07] MEDS: Senna/Docusate Sodium 1 Tablet 2 TABLET PO (08:02)
[2025-03-07] MEDS: NIFEdipine 30 MG Tablet PO (08:03)
[2025-03-07] MEDS: APIXABAN 2.5 MG TABLET (WCH) PO ×2 (08:03→21:08)
[2025-03-07 08:05] VITALS: BP 125/46; PULSE 59
--- NOTE | 2025-03-07 10:36 | CASEMGMT ---
Addendum entered by Letitia Stewart 03/07/25 16:05: SW left with son to discuss DC plans. Original Note: Social Work SW notified by Ebony at [facility] with Medicaid pending number [id number]. - Received phone call from Ebony with an update from SHELLIE. SHELLIE searched pt's properties and pt owns two properties, thus, no longer making pt elgibile for [place] Medicaid. - Received message from [facility], stating pt is accepted for admission, but will need to pay patient liability and when CC spoke with son, son denied being able to pay liability. [facility] will submit for precert for skilled with [employer]. will speak with pt and son on plans and if precert is denied, if pt will DC home. Will continue to follow. Letitia Stewart MSW NETWORK OPERATIONS PROJECT MANAGER
[2025-03-07 18:00] VITALS: BP 108/43; PULSE 62; RESP 16; TEMP 36.3; O2SAT 100
[2025-03-07 18:26] VITALS: BP 74/37; PULSE 62
[2025-03-07 21:00] VITALS: BP 92/46; PULSE 68; RESP 16; O2SAT 100
[2025-03-07] MEDS: MELATONIN 3 MG TABLET 1.5 MG PO (21:08)
[2025-03-07 21:12] VITALS: BP 92/46; PULSE 68
[2025-03-08] VITALS (7 sets, daily range): BP systolic 93–138; BP diastolic 39–48; PULSE 62–71; RESP 16–18; TEMP 36.8; O2SAT 99–100
[2025-03-08] MEDS: Arthritis Pain Compound 60 CLICK TUBE TOPICAL ×3 (05:30→20:54)
[2025-03-08] MEDS: NIFEdipine 30 MG Tablet PO (08:30)
[2025-03-08] MEDS: APIXABAN 2.5 MG TABLET (WCH) PO ×2 (08:30→21:00)
--- NOTE | 2025-03-08 10:10 | CASEMGMT ---
Addendum entered by Letitia Stewart 03/09/25 08:33: 7000 completed and DC orders sent to SNF. Addendum entered by Letitia Stewart 03/08/25 11:40: Son returned this worker's call and agreed to DC plan. Addendum entered by Letitia Stewart 03/08/25 10:27: SW received message from [facility] that auth was approved for skilled stay and [facility] confirmed DC 03/09. - JEWEL updated IDT. [facility]oned [facility] transport for 1300. 7000 started in [facility]. SW left VM with son. SW updated pt. Plan: DC 03/09 to [facility], skilled Original Note: Social Work SW met with patient to discuss DC plans and identify if she can complete advance directives. SW explained that since pt owns two properties, she does not qualify for Medicaid at this time. [facility] submitted precert for skilled coverage, but if denied, pt does not have a payor to DC there. However, pt is x2 assist and home is not safe, as son cannot care for her. Pt expressed understanding. SW completed BIMS/PHQ-2 per protocol and pt scored 6/15 on her BIMS. SW cannot complete advance directives. Legal NOK would be the joint decision of her two son's. - SW updated Dr and IDT. Will await outcome from precert. - JEWEL phoned [facility] to scheduled Will Call transport. D/T pt being a 2 assist and A&Ox2, dispatcher stated cot would be more appropriate than w/c. JEWEL will continue to follow to finalize DC plans. Letitia WILLAMSW
--- NOTE | 2025-03-08 12:13 | PN_ITS ---
Subjective Subjective Afebrile VSS - Maintaining appropriate oxygen saturation on RA Oral intake - FOOD good FLUIDS fair past Discussed with nursing - there is a significant difference in the BP's between the R and left arms. BP's in the left arm are always significantly lower. Woill need to take all BP's in the R arm. When looking at the R arm BP's the BP is mostly controlled and Metoprolol and Procardia. Reviewed the THERAPY notes Medication list reviewed. Heather tells me that her pain is well controlled. She denies lightheadedness, CP, SOB, palpitations, N/V/abd pain, dysuria, calf pain. The left leg is still swollen but, the swelling is slowly decreasing......would probably be better if we could get her to elevate her legs when she is in the recliner. Objective Data Objective Data Vital Signs: Vital Signs Temp Pulse Resp BP Pulse Ox O2 Del Method 98.2 F 62 17 134/44 H 99 Room Air 03/08/25 05:42 03/08/25 08:30 03/08/25 05:42 03/08/25 08:30 03/08/25 05:42 03/08/25 10:00 Oxygen Delivery Method Room Air Weight: 128 lb 8.472 oz Body Mass Index (BMI) 23.5 Intake & Output: Intake and Output for Last 24 Hours 03/06/25 03/07/25 03/08/25 23:59 23:59 23:59 Intake Total 540 / 540 1420 / 1420 1140 / 1140 Output Total 750 / 750 Balance 540 / 540 670 / 670 1140 / 1140 Lab / Micro Data 03/05/25 05:12 03/05/25 05:12 Micro: Microbiology 02/23/25 11:40 Urine, Catheterized Urine Culture - Final Escherichia coli 02/22/25 13:45 Stool Stool Occult Blood (JEREMY) - Final Occult Blood Positive Physical Exam Const alert and no apparent distress General Appearance: cooperative HEENT Mouth: dry mucous membranes Resp normal respiratory effort and clear to auscultation bilaterally Effort and Inspection: Negative for tachypneic Cardio regular rate, regular rhythm and no gallops Cardio Narrative: No ectopy GI normal to inspection, nondistended, normoactive bowel sounds, soft to palpation and non-tender Extremity General Extremity: edema left lower extremity mild Skin Rashes: no rashes Wound Narrative: Incisions are intact with no dehiscence, no osiris-incisional erythema, no discharge and no significant osiris-incisional swelling. No pain with palpation around the area. Pain has always been more in the distal anterior thigh above the knee. This is well controlled now. Psych affect normal Psych Narrative: Slways cooperative and pleasant. Sleeping well at night and she has a good appetite. Assessment & Plan Assessment/Plan (1) Debility: (2) Intertrochanteric fracture of left femur: QUALIFIERS: Encounter type: initial encounter Fracture type: c losed Fracture alignment: displaced Qualified Code(s): S72.142A - Displaced intertrochanteric fracture of left femur, initial encounter for closed fracture (3) History of open reduction and internal fixation (ORIF) procedure: PLAN: Cephalomedullary nailing by Dr. Pennie Chacon on 02/16/2025. (4) Hyponatremia: (5) Anemia: QUALIFIERS: Anemia type: unspecified type Qualified Code(s): D 64.9 - Anemia, unspecified (6) Vitamin D deficiency: (7) Hypothyroidism: QUALIFIERS: Hypothyroidism type: acquired Qualified Code(s): E 03.9 - Hypothyroidism, unspecified PLAN: Started on levothyroxine 25 mcg daily on rehab. She will continue this at discharge. Will need a follow-up TSH and T4 in 6 weeks. (8) Diabetes mellitus, type 2: QUALIFIERS: Diabetes mellitus complication status: with other specified complication Diabetes mellitus terminal carman insulin use: without [facility] use Qualified Code(s): E11.69 - Type 2 diabetes mellitus with other specified complication (9) Parkinson's disease: QUALIFIERS: Dyskinesia presence: without dyskinesia Fluctuating manifestations: unspecified whether manifestations fluctuate Qualified Code(s): G20.A1 - Parkinson's disease without dyskinesia, without mention of fluctuations PLAN: Not sure if she had Parkinson's disease or Parkinsonism due to dementia/cerebral atrophy. Recommend she follow up with neurology at [place] from rehab. (10) Cognitive dysfunction: PLAN: Dementia suspected. Will follow up with neurology. (11) Occult blood in stools: (12) Right carotid bruit: (13) Fecal incontinence: QUALIFIERS: Fecal incontinence type: full incontinence of feces Q ualified Code(s): R15.9 - Full incontinence of feces (14) Urinary bladder incontinence: QUALIFIERS: Urinary Incontinence type: functional incontinence Q ualified Code(s): R39.81 - Functional urinary incontinence (15) Paroxysmal atrial fibrillation: PLAN: She has no hx of this but, she was in AF when I examined her on 02/23/25. HR was in the 90's to low 100's and she was started on Metoprolol. She has been in a regular rhythm every time I have examined her this past week. Will recommend an event monitor at [place]. PLAN: Plan 1. Continue therapy 2. Discharge to [facility] tomorrow for additional therapy to see if she can progress to the point where she would be able to go home with [facility] 3. Transfer summary completed today. Charges/Coding Visit Charges Inpatient E&M: 338[address] [facility] L1
--- NOTE | 2025-03-08 15:49 | TREXTCAR_ITS ---
Diet Diet Order/Speech Therapy: INPATIENT Hospital Diet / Speech Therapy Order(s) 02/22/25 14:45 Diet: Carbohydrate Controlled Food consistency:: Regular Liquid Consistency:: Regular/Thin Type of Dietary Supplement:: Glucerna Shake Diet Comments: small portions per pt request; 120ml strawberry glucerna shake with dinner Routine Orders/Code Status Enema Type: Fleetz Enema Frequency: Daily PRN Suppository Type: Dulcolax 10mg Suppository Frequency: Daily PRN Routine Lab Work: - (CBC, BMP in 1 week) Code Status: Full Code DC O2, CPAP, BIPAP needs Home O2 Discharge instructions: No Wound(s) Lt Hip: Wound Type: Surgical Incision (Leave incisions open to air) Therapies Weight Bearing: Full weight bearing Extremity Affected:: Left Lower Physical Therapy: Eval and Treat Occupational Therapy: Eval and Treat Speech Therapy: Eval and Treat Problem/Diagnosis (1) Debility: Status: Acute Code(s): R53.81 - Other malaise (2) Intertrochanteric fracture of left femur: Status: Resolved Code(s): S72.142A - Displaced intertrochanteric fracture of left femur, initial encounter for closed fracture (3) History of open reduction and internal fixation (ORIF) procedure: Status: Acute Code(s): Z98.890 - Other specified postprocedural states Comment: Left hip cephalomedullary nailing 02/16/[address] Chacon (4) Hyponatremia: Status: Acute Code(s): E87.1 - Hypo-osmolality and hyponatremia Plan: Lab is consistent with dehydration. Stable at 134 on 03/05/25. Poor oral fluid intake. Needs a lot of reminding to increase fluid intake. (5) Anemia: Status: Chronic Code(s): D64.9 - Anemia, unspecified Plan: Acute on chronic anemia due to blood loss from hip fx/ORIF. Hemoglobin on 03/05 is 9.5, up from 8.5 at admission to rehab. Iron studies were not consistent with iron deficiency at admission to rehab and in fact her percent iron saturation is 35%. She has chronic normochromic normocytic anemia but was not taking a thyroid supplement at home. Levothyroxine has been restarted while on rehab and the chronic anemia may resolve with appropriate thyroid hormone supplementation. Stool is heme positive but, HGB is increasing so this was not worked up on rehab. Comment: Normochromic normocytic with an increased RDW. (6) Vitamin D deficiency: Status: Chronic Code(s): E55.9 - Vitamin D deficiency, unspecified Plan: Started on calcium and vitamin D supplementation. Will continue at discharge. Recommend a bone density test in the next 3 months. (7) Hypothyroidism: Status: Chronic Code(s): E03.9 - Hypothyroidism, unspecified Plan: Started on levothyroxine 25 mcg daily on rehab. She will continue this at discharge. Will need a follow-up TSH and T4 in 6 weeks. Comment: Stopped taking her meds because she felt fine (8) Diabetes mellitus, type 2: Status: Chronic Code(s): E11.9 - Type 2 diabetes mellitus without complications Plan: Blood sugars have been under excellent control on Glucophage 750 mg once daily in the AM. Will continue at discharge. Comment: HGBA1C is 7.3 on no medications (9) Parkinson's disease: Status: Chronic Code(s): G20.A1 - Parkinson's disease without dyskinesia, without mention of fluctuations Plan: Not sure if she had Parkinson's disease or Parkinsonism due to dementia/cerebral atrophy. Recommend she follow up with neurology at [place] from rehab. Comment: Diagnosed by Dr. Santana and placed on Sinemet. (10) Cognitive dysfunction: Status: Chronic Code(s): F09 - Unspecified mental disorder due to known physiological condition Plan: Dementia suspected. Will follow up with neurology. (11) Occult blood in stools: Status: Acute Code(s): R19.5 - Other fecal abnormalities Comment: has had this in the past and it was negative but, stool + on 02/22/25 (12) Right carotid bruit: Status: Chronic Code(s): R09.89 - Other specified symptoms and signs involving the circulatory and respiratory systems (13) Fecal incontinence: Status: Chronic Code(s): R15.9 - Full incontinence of feces (14) Urinary bladder incontinence: Status: Chronic Code(s): R32 - Unspecified urinary incontinence (15) Paroxysmal atrial fibrillation: Status: Acute Code(s): I48.0 - Paroxysmal atrial fibrillation Plan: She has no hx of this but, she was in AF when I examined her on 02/23/25. HR was in the 90's to low 100's and she was started on Metoprolol. She has been in a regular rhythm every time I have examined her this past week. Will recommend an event monitor at [place]. (16) Orthostatic hypotension: Status: Chronic Code(s): I95.1 - Orthostatic hypotension Plan: This is more likely than not related to dehydration. She has poor oral fluid intake. She is asymptomatic. There is a significant discrepancy in the BP in the R and left arms. The BP in the left arm is always lower than the R. She more likely than not has vascular disease in the L arm. Would use the BP's in the R arm to adjust antihypertensives. (17) Osteoporosis: Status: Suspected Code(s): M81.0 - Age-related osteoporosis without current pathological fracture Plan: Recommend a DEXA following DC from inpt rehab. Comment: Needs to have an outpatient DEXA Plan 1. DC to [facility] on 03/09 for additional therapy - may need LT placement 2. Event monitor at [place]. 3. DEXA in the near future. 4. CBC and BMP in 1 week 5. TSH and free T4 in 6 weeks. 6. Continue Glucophage 750 mg once daily in the AM. Bs's are in excellent control with no hypoglycemia at the time of DC from rehab 7. Continue Metoprolol 8. She has edema of the LLE due to sitting in the recliner with legs dependent. Venous US prior to DC negative for DVT. Continue CAMILA hose and elevation of the legs if you can get her to comply. 9. will need to continue Eliquis 2.5 mg BID for DVT prophylaxis.......end date is 03/22/25. 10. Follow-up with Dr. Matt Chacon, orthopedics, postdischarge from rehab. 11. She needs to be encouraged frequently to increase fluid intake. 12. The systolic BP in the left arm is generally 30-40 points lower than in the r arm. she likely has vascular disease in the left arm. Please ALWAYS use the R arm when taking BP and adjusting BP meds. Allergies/Procedures Done in Hospital Allergies Penicillins Allergy (Intermediate, Verified 02/15/25 13:14) Hives Procedures: Transthoracic Echo (EF is 60% with no wall motion abnormalities. There is mild focal aortic valve calcification. Both atria are of normal size. She has mild TR and mild MR.) and - (Open reduction internal fixation with cephalomedullary nailing by Dr. Chacon on 02/16/2025.) Type of Care/Length of Stay Estimated LOS: Convalescent Care Less Than 30 days Type of Care Needed: Skilled Rehab Potential: Good Prognosis: Fair Additional Orders/Day of Discharge H&P will serve as current which was dated: 02/22/25 Day of Discharge: 03/09/25 Dietary and Speech Recommendations Dietitian Recommendations/Changes: Continue consistent carbohydrate with small portions per pt request. Will order 120ml strawberry glucerna shake with dinner. Will monitor weight trends. Follow Up Care Please follow up with your Primary Care Physician in: Dr. Santana following DC form SNF. Please Follow Up With: Matt Chacon MD When: call the office for an appt. Please Follow Up With: Shon Lozada MD When: within the next 2-3 weeks for dementia/Parkinson's disease vs parkinsonism Discharge Plan Admission Admit Date/Time: 02/21/25 14:16 Primary Reason for Your Visit: Debility due to Left hip fx/ORIF Attending Provider: Katie Bah Primary Care Provider: Candelario Santana Chi Instructions Additional Instructions / Restrictions: 1. Use the right arm when taking the blood pressure. She likely has significant vascular disease in the left upper extremity and systolic blood pressure are always 30-40 points lower in the let arm than the R. 2. TSH and free T4 in 6 weeks. 3. Needs constant encouragement to increase fluid intake. 4. Edema in the left leg is related to the surgery and the fact that she does not elevate her legs. Continue with CAMILA alba. Venous ultrasound of the left lower extremity was negative for DVT. Discharge Orders/Prescriptions Prescriptions: New metformin 500 mg Tablet 750 mg PO DAILYCM Qty: 1 0RF melatonin 3 mg Tablet 1.5 mg PO QHS Qty: 1 0RF levothyroxine 25 mcg Tablet 25 mcg PO DAILY@0600 Qty: 1 0RF magnesium hydroxide 400 mg/5 mL Suspension 30 ml PO X1 PRN (Reason: Constipation) Qty: 30 0RF bisacodyl 10 mg Suppository 10 mg VA X1 PRN (Reason: Constipation) Qty: 1 0RF calcium carbonate 200 mg calcium (500 mg) Tablet,Chewable 500 mg PO TIDCM Qty: 1 0RF metoprolol tartrate 25 mg Tablet 25 mg PO BID Qty: 1 0RF nifedipine 30 mg Tablet Extended Release 24hr 30 mg PO 1000 Qty: 1 0RF sennosides-docusate sodium [Stimulant Laxative Plus] 8.6-50 mg Tablet 2 tab PO BID Qty: 1 0RF tramadol 50 mg Tablet 25 mg PO 0700,1400,2100 7 Days Qty: 21 0RF diclofenac sodium [Voltaren Arthritis Pain] 1 % gel 2 g topical BID Qty: 100 0RF Rx Instructions: apply BID to both knees Continued carbidopa-levodopa 25-100 mg tablet 1 tab PO TID acetaminophen 500 mg Tablet 1,000 mg PO Q8 Qty: 0 0RF ergocalciferol (vitamin D2) [Vitamin D2] 1,250 mcg (50,000 unit) Capsule 1,250 mcg PO Q7D Qty: 0 0RF Eliquis 5 mg Tablet 2.5 mg PO BID Qty: 1 0RF Rx Instructions: DC after the last dose on 03/22/25 Discontinued calcium carbonate 200 mg calcium (500 mg) Tablet,Chewable 500 mg PO TIDCM Qty: 0 0RF melatonin 10 mg Tablet, Sublingual 10 mg PO QHS PRN PRN (Reason: Insomnia) Qty: 0 0RF No Action losartan 50 mg tablet 50 mg PO DAILY Other Ambulatory Orders: 30 Day Event Recorder Preventi (Urgent) Timeframe: 3 Days Location: [facility] Ordered By: Dr. Katie Bah Referrals / Follow Up: Matt Chacon MD [Med Staff - Active Staff] - 03/22/25 3:30 pm Shon Lozada MD [Non-Staff -Ordering Privileges] - Disposition Disposition (needs filled in before D/C Order can be placed): [facility] Facility (2) Intertrochanteric fracture of left femur Qualifiers: Encounter type: initial encounter Fracture alignment: displaced Fracture type: closed Qualified Code(s): S72.142A - Displaced intertrochanteric fracture of left femur, initial encounter for closed fracture (5) Anemia Qualifiers: Anemia type: unspecified type Qualified Code(s): D64.9 - Anemia, unspecified (7) Hypothyroidism Qualifiers: Hypothyroidism type: acquired Qualified Code(s): E03.9 - Hypothyroidism, unspecified (8) Diabetes mellitus, type 2 Qualifiers: Diabetes mellitus complication status: with other specified complication Diabetes mellitus senior living insulin use: without senior living use Qualified Code(s): E11.69 - Type 2 diabetes mellitus with other specified complication (9) Parkinson's disease Qualifiers: Dyskinesia presence: without dyskinesia Fluctuating manifestations: unspecified whether manifestations fluctuate Qualified Code(s): G20.A1 - Parkinson's disease without dyskinesia, without mention of fluctuations (13) Fecal incontinence Qualifiers: Fecal incontinence type: full incontinence of feces Qualified Code(s): R15.9 - Full incontinence of feces (14) Urinary bladder incontinence Qualifiers: Urinary Incontinence type: functional incontinence Qualified Code(s): R39.81 - Functional urinary incontinence (17) Osteoporosis Qualifiers: Osteoporosis type: age-related Presence of current pathological fracture: without current pathological fracture Qualified Code(s): M81.0 - Age-related osteoporosis without current pathological fracture
--- NOTE | 2025-03-08 16:57 | PCM.DC.SUM ---
Providers Date of Admission: 02/21/25 Date of Discharge: 03/09/25 Primary Care Physician: Dr. Candelario Santana MD Reason For Visit: LEFT HIP ORIF Diagnosis Discharge Diagnosis (1) Debility: Status: Acute Code(s): R53.81 - Other malaise (2) Intertrochanteric fracture of left femur: Status: Resolved Code(s): S72.142A - Displaced intertrochanteric fracture of left femur, initial encounter for closed fracture Qualifiers: Encounter type: initial encounter Fracture alignment: displaced Fracture type: closed Qualified Code(s): S72.142A - Displaced intertrochanteric fracture of left femur, initial encounter for closed fracture (3) History of open reduction and internal fixation (ORIF) procedure: Status: Inactive Code(s): Z98.890 - Other specified postprocedural states Plan: Cephalomedullary nailing by Dr. Pennie Chacon on 02/16/2025. (4) Hyponatremia: Status: Acute Code(s): E87.1 - Hypo-osmolality and hyponatremia Plan: Lab is consistent with dehydration. Stable at 134 on 03/05/25. Poor oral fluid intake. Needs a lot of reminding to increase fluid intake. (5) Anemia: Status: Chronic Code(s): D64.9 - Anemia, unspecified Qualifiers: Anemia type: unspecified type Qualified Code(s): D64.9 - Anemia, unspecified Plan: Acute on chronic anemia due to blood loss from hip fx/ORIF. Hemoglobin on 03/05 is 9.5, up from 8.5 at admission to rehab. Iron studies were not consistent with iron deficiency at admission to rehab and in fact her percent iron saturation is 35%. She has chronic normochromic normocytic anemia but was not taking a thyroid supplement at home. Levothyroxine has been restarted while on rehab and the chronic anemia may resolve with appropriate thyroid hormone supplementation. Stool is heme positive but, HGB is increasing so this was not worked up on rehab. (6) Vitamin D deficiency: Status: Chronic Code(s): E55.9 - Vitamin D deficiency, unspecified Plan: Started on calcium and vitamin D supplementation. Will continue at discharge. Recommend a bone density test in the next 3 months. (7) Hypothyroidism: Status: Chronic Code(s): E03.9 - Hypothyroidism, unspecified Qualifiers: Hypothyroidism type: acquired Qualified Code(s): E03.9 - Hypothyroidism, unspecified Plan: Started on levothyroxine 25 mcg daily on rehab. She will continue this at discharge. Will need a follow-up TSH and T4 in 6 weeks. (8) Diabetes mellitus, type 2: Status: Chronic Code(s): E11.9 - Type 2 diabetes mellitus without complications Qualifiers: Diabetes mellitus complication status: with other specified complication Diabetes mellitus usp insulin use: without usp use Qualified Code(s): E11.69 - Type 2 diabetes mellitus with other specified complication Plan: Blood sugars have been under excellent control on Glucophage 750 mg once daily in the AM. Will continue at discharge. (9) Parkinson's disease: Status: Chronic Code(s): G20.A1 - Parkinson's disease without dyskinesia, without mention of fluctuations Qualifiers: Dyskinesia presence: without dyskinesia Fluctuating manifestations: unspecified whether manifestations fluctuate Qualified Code(s): G20.A1 - Parkinson's disease without dyskinesia, without mention of fluctuations Plan: Not sure if she had Parkinson's disease or Parkinsonism due to dementia/cerebral atrophy. Recommend she follow up with neurology at [place] from rehab. (10) Cognitive dysfunction: Status: Chronic Code(s): F09 - Unspecified mental disorder due to known physiological condition Plan: Dementia suspected. Will follow up with neurology. (11) Occult blood in stools: Status: Acute Code(s): R19.5 - Other fecal abnormalities (12) Right carotid bruit: Status: Chronic Code(s): R09.89 - Other specified symptoms and signs involving the circulatory and respiratory systems (13) Fecal incontinence: Status: Chronic Code(s): R15.9 - Full incontinence of feces Qualifiers: Fecal incontinence type: full incontinence of feces Qualified Code(s): R15.9 - Full incontinence of feces (14) Urinary bladder incontinence: Status: Chronic Code(s): R32 - Unspecified urinary incontinence Qualifiers: Urinary Incontinence type: functional incontinence Qualified Code(s): R39.81 - Functional urinary incontinence (15) Paroxysmal atrial fibrillation: Status: Acute Code(s): I48.0 - Paroxysmal atrial fibrillation Plan: She has no hx of this but, she was in AF when I examined her on 02/23/25. HR was in the 90's to low 100's and she was started on Metoprolol. She has been in a regular rhythm every time I have examined her this past week. Will recommend an event monitor at [place]. (16) Orthostatic hypotension: Status: Chronic Code(s): I95.1 - Orthostatic hypotension Plan: This is more likely than not related to dehydration. She has poor oral fluid intake. She is asymptomatic. There is a significant discrepancy in the BP in the R and left arms. The BP in the left arm is always lower than the R. She more likely than not has vascular disease in the L arm. Would use the BP's in the R arm to adjust antihypertensives. (17) Osteoporosis: Status: Suspected Code(s): M81.0 - Age-related osteoporosis without current pathological fracture Qualifiers: Osteoporosis type: age-related Presence of current pathological fracture: without current pathological fracture Qualified Code(s): M81.0 - Age-related osteoporosis without current pathological fracture Plan: Recommend a DEXA following DC from in rehab. Plan 1. DC to [facility] on 03/09 for additional therapy - may need LT placement 2. Event monitor at [place]. 3. DEXA in the near future. 4. CBC and BMP in 1 week 5. TSH and free T4 in 6 weeks. 6. Continue Glucophage 750 mg once daily in the AM. Bs's are in excellent control with no hypoglycemia at the time of DC from rehab 7. Continue Metoprolol 8. She has edema of the LLE due to sitting in the recliner with legs dependent. Venous US prior to DC negative for DVT. Continue CAMILA hose and elevation of the legs if you can get her to comply. 9. will need to continue Eliquis 2.5 mg BID for DVT prophylaxis.......end date is 03/22/25. 10. Follow-up with Dr. Matt Chacon, orthopedics, postdischarge from rehab. 11. She needs to be encouraged frequently to increase fluid intake. 12. The systolic BP in the left arm is generally 30-40 points lower than in the r arm. she likely has vascular disease in the left arm. Please ALWAYS use the R arm when taking BP and adjusting BP meds. Medications at Discharge Home Medications carbidopa 25 mg-levodopa 100 mg tablet 1 tab PO TID parkinson 02/15/25 losartan 50 mg tablet 50 mg PO DAILY blood pressure 02/15/25 Held on 02/21/25. Instructions: Until blood pressures are consistently greater than 130 systolic acetaminophen 500 mg tablet 1,000 mg (2 x 500 mg) PO Q8 pain #0 tabs 02/21/25 ergocalciferol (vitamin D2) 1,250 mcg (50,000 unit) capsule (Vitamin D2) 1,250 mcg PO Q7D supplement #0 caps 02/21/25 apixaban 5 mg tablet (Eliquis) 2.5 mg (1/2 x 5 mg) PO BID DVT prophylaxis #1 TAB 03/08/25 bisacodyl 10 mg rectal suppository 10 mg IN X1 PRN Constipation #1 ea 03/08/25 calcium carbonate 500 mg (2.5 x 200 mg calcium (500 mg)) PO TIDCM #1 TAB 03/08/25 diclofenac sodium 1 % topical gel (Voltaren Arthritis Pain) 2 g topical BID #100 grams 03/08/25 levothyroxine 25 mcg tablet 25 mcg PO DAILY@0600 #1 TAB 03/08/25 magnesium hydroxide 400 mg/5 mL oral suspension 30 ml PO X1 PRN Constipation #30 mL 03/08/25 melatonin 3 mg tablet 1.5 mg (1/2 x 3 mg) PO QHS #1 TAB 03/08/25 metformin 500 mg tablet 750 mg (1.5 x 500 mg) PO DAILYCM #1 TAB 03/08/25 metoprolol tartrate 25 mg tablet 25 mg PO BID #1 TAB 03/08/25 nifedipine 30 mg tablet,extended release 24 hr 30 mg PO 1000 #1 TAB 03/08/25 sennosides 8.6 mg-docusate sodium 50 mg tablet (Stimulant Laxative Plus) 2 tab PO BID #1 TAB 03/08/25 tramadol 50 mg tablet 25 mg (1/2 x 50 mg) PO 0700,1400,2100 1 week #21 tabs 03/08/25 Hospital Course Operations - (ORIF for cephalomedullary nail placement on 02/14/[address] Pennie Chacon.) Procedures Transthoracic echo (Normal EF with no wall motion abnormalities. Both atria are of normal size. Focal aortic valve calcification. Mild MR and TR.) Summary of Care Provided Minutes Spent on Discharge: 42 Hospital Course: HEATHER FIFE, is a 79 YO F with a past medical history of Parkinson's disease? (vs parkinsonism from cerebral atrophy/dementia), diabetes mellitus type 2, hypertension, hypothyroidism (status post thyroidectomy), restless leg syndrome, history of choledocholithiasis (has had an ERCP and placement of temporary biliary stents in November [address] Tran), internal hemorrhoids, iron deficiency anemia and memory problems - suspected dementia) who presented to the emergency department at [facility] on 02/15/2025 complaining of left hip pain and inability to walk. She had a fall the previous week and had not been able to get up off the couch since then.../ Family and friends provided assistance. Pelvic x-ray revealed a left intertrochanteric fracture. Dr. Chacon was consulted and she was taken to the operating room on 02/16/2025 and underwent left femur cephalomedullary nailing. She was transferred to the acute inpt rehab unit at [facility] on 02/21/25 for 3 hours of therapy daily to restore function/independence at or near her level prior to the fall. Heather has made steady progress while on rehab. Recovery is complicated by poor cognitive function. BS's were elevated at admission to rehab. She was started on GLucophage and the BS's are well controlled on GLucophage 750 mg Q AM at [place]. No BS's > 180 and no hypoglycemia. She is tolerating well with no diarrhea. BP was significantly elevated at admission to rehab. She came to us on losartan 50 mg daily. On 02/23/25 she was in AF with increased resting HR and losartan was held and she was started on metoprolol 25 mg p.o. twice daily. Since starting metoprolol she has been in normal sinus rhythm every time I have examined her. An order was put in for an event monitor at [place]. We discovered that there is a big discrepancy in the blood pressure in the upper extremities. The left arm systolic pressure is 30 to 35 points lower than in the right arm. We have been using the right arm for all blood pressures. When using the right arm the blood pressures were not adequately controlled with metoprolol 25 mg twice daily and she was started on Procardia XL 30 mg daily. Blood pressures for 24 hours prior to discharge ranged from 125/45 to 146/46. She denies lightheadedness. She has a hx of total thyroidectomy but was not on a thyroid supplement at admission to rehab........apparently it was discontinued because she did not want to take it. TSH on 02/16/2025 was 7.5 with a T4 of 1.10. She was started on levothyroxine 25 mcg daily. she will need a TSH and free T4 in 6 weeks. Sodium was low on at 131 on 02/22/2025. Workup was not consistent with SIADH. Hyponatremia more likely than not due to sodium depletion and hypothyroidism. With better hydration and starting Levothyroxine the sodium prior to DC is 134 and stable. Heather has poor oral fluid intake chronically. The BUN at DC is up to 17 but, the creat is stable at 0.54 (BUN/CREAT ratio is 31.2). She had a heme+ stool on rehab but, the HGB is increasing and she has a hx of hemorrhoids. She was chronically constipated at admission and I suspect the heme + stool is due to straining/hard BM's. She is doing well on stool softeners and having regular bowel movements. Heather had a TTE while on rehab because of a MM and PAF. It showed a normal EF of 60% with no wall motion abnormalities. Both atria were of normal size. There was focal sclerosis of the aortic valve, mild tricuspid regurgitation and mild mitral regurgitation. She has a R carotid bruit and would consider a Carotid US post DC from rehab. At the time of discharge from rehab she is ambulating up to 20 feet with a front wheeled walker at min assist in a wheelchair follow for safety. She is able to go from sitting to standing at contact-guard assist and is moderate assist with a front wheel walker for stand pivot. Not safe to attempt steps yet. She is supervision/set up for eating, grooming and upper body dressing. She requires minimal assistance with bathing. She requires total assistance with lower body dressing. She requires moderate assistance for toilet transfer and is maximum assistance for toileting. She continues to be incontinent of both stool and urine. She requires moderate assistance with tub/shower transfer. Heather was discharged on 03/09/25 to [facility] for additional therapy. A Follow-up appointment has been made with Dr. Chacon from orthopedics and she will also need to follow up with PCP (Dr. Santana) following DC from [facility]. We have tried to get an appt for her to follow up with Dr. Lozada from neurology for dementia and Parkinson's disease (vs Parkinsonism) but, at the time of DC we have not received a call back form the office. Heather is very pleasant and appropriate. She is always willing to do therapy. She is sleeping well at night and she has a good appetite. She needs encouragement to increase fluid intake. We have had no behavioral issues and she has not required any sedation or a sitter while on rehab. I suspect she may need placement. Not sure her son Stoney will be able to provide all the care she will need at home going forward. I tried to wean the Tramadol prior to DC but, the pain with weight bearing increased and we had to go back up to 25 mg TID. Follow up: TSH, T4 in 6 weeks DEXA to evaluate for osteoporosis. Carotid US for R carotid bruit. 30 day Event Monitor (ordered). May need follow up with cardiology depending on the results. Physical Exam Const alert and no apparent distress Constitutional Narrative: pleasant and appropriate. General Appearance: cooperative and well kempt HEENT HEENT Narrative: Mucous membranes are little dry. No evidence of thrush. Mouth: dry mucous membranes Eyes PERRL, EOMs intact bilaterally, conjunctivae normal and no scleral icterus Eyes Narrative: No discharge from the eyes Neck supple Neck Narrative: Right carotid bruit. Brisk carotid upstroke with good pulse volume. Chest Chest: symmetrical chest wall rise Resp normal respiratory effort Resp Narrative: coarse crackles in the bases (mostly cleared after a few deep breaths), otherwise CTA. No conversational dyspnea. Not tachypneic. Effort and Inspection: Negative for tachypneic Cardio regular rate, regular rhythm, no rub and no gallops Cardio Narrative: She has a systolic murmur at the second right intercostal space with radiation to the lower left sternal border and apex. No diastolic murmurs. No ectopy today. GI normal to inspection, nondistended, normoactive bowel sounds, soft to palpation and non-tender GI Narrative: No guarding with palpation. Having regular bowel movements. Extremity no calf tenderness Extremity Narrative: Still with edema of the left lower extremity but she always has her legs dependent when she is sitting in the recliner. the edema in the Left leg is slowly improving. she was in bad with her legs elevated when I examined her prior to DC and the edema is much better in the thigh. Still with pitting of the ankle. No edema in the right ankle. No pain with compression of the left calf. Venous ultrasound was negative for DVT last week. Skin Skin Narrative: The oscar have been removed and the incisions are intact. No erythema and no DC from the incision. NO swelling around the incision and she had no pain with palpation of the incision and the surrounding area. Rashes: no rashes Neuro CN's II-XII intact bilaterally and moves all extremities Psych cooperative and affect normal Appearance: grossly normal, appropriate and well kempt Attitude: calm and engaged Activity / Motor Behavior: appropriate eye contact; Negative for psychomotor agitation or restless Speech: normal speech Weight / BMI Weight Weight: 128 lb 8.472 oz Body Mass Index (BMI) 23.5 ABG / Lab / Microbiology Data 03/05/25 05:12 03/05/25 05:12 Microbiology: Microbiology 02/23/25 11:40 Urine, Catheterized Urine Culture - Final Escherichia coli 02/22/25 13:45 Stool Stool Occult Blood (JEREMY) - Final Occult Blood Positive D/C Instructions DC O2, CPAP, BIPAP Needs Home O2 Discharge instructions: No Please Follow Up With: Matt Chacon MD Meaningful Use Info Meaningful Use Meaningful Use Diagnoses (Choose all that apply): None applicable Discharge Plan Admission Admit Date/Time: 02/21/25 14:16 Primary Reason for Your Visit: Debility due to Left hip fx/ORIF Attending Provider: Katie Bah Primary Care Provider: Candelario Santana Chi Instructions Additional Instructions / Restrictions: 1. Use the right arm when taking the blood pressure. She likely has significant vascular disease in the left upper extremity and systolic blood pressure are always 30-40 points lower in the let arm than the R. 2. TSH and free T4 in 6 weeks. 3. Needs constant encouragement to increase fluid intake. 4. Edema in the left leg is related to the surgery and the fact that she does not elevate her legs. Continue with CAMILA hose. Venous ultrasound of the left lower extremity was negative for DVT. Discharge Orders/Prescriptions Prescriptions: New metformin 500 mg Tablet 750 mg PO DAILYCM Qty: 1 0RF melatonin 3 mg Tablet 1.5 mg PO QHS Qty: 1 0RF levothyroxine 25 mcg Tablet 25 mcg PO DAILY@0600 Qty: 1 0RF magnesium hydroxide 400 mg/5 mL Suspension 30 ml PO X1 PRN (Reason: Constipation) Qty: 30 0RF bisacodyl 10 mg Suppository 10 mg IN X1 PRN (Reason: Constipation) Qty: 1 0RF calcium carbonate 200 mg calcium (500 mg) Tablet,Chewable 500 mg PO TIDCM Qty: 1 0RF metoprolol tartrate 25 mg Tablet 25 mg PO BID Qty: 1 0RF nifedipine 30 mg Tablet Extended Release 24hr 30 mg PO 1000 Qty: 1 0RF sennosides-docusate sodium [Stimulant Laxative Plus] 8.6-50 mg Tablet 2 tab PO BID Qty: 1 0RF tramadol 50 mg Tablet 25 mg PO 0700,1400,2100 7 Days Qty: 21 0RF diclofenac sodium [Voltaren Arthritis Pain] 1 % gel 2 g topical BID Qty: 100 0RF Rx Instructions: apply BID to both knees Continued carbidopa-levodopa 25-100 mg tablet 1 tab PO TID acetaminophen 500 mg Tablet 1,000 mg PO Q8 Qty: 0 0RF ergocalciferol (vitamin D2) [Vitamin D2] 1,250 mcg (50,000 unit) Capsule 1,250 mcg PO Q7D Qty: 0 0RF Eliquis 5 mg Tablet 2.5 mg PO BID Qty: 1 0RF Rx Instructions: DC after the last dose on 03/22/25 Discontinued calcium carbonate 200 mg calcium (500 mg) Tablet,Chewable 500 mg PO TIDCM Qty: 0 0RF melatonin 10 mg Tablet, Sublingual 10 mg PO QHS PRN PRN (Reason: Insomnia) Qty: 0 0RF No Action losartan 50 mg tablet 50 mg PO DAILY Other Ambulatory Orders: 30 Day Event Recorder Preventi (Urgent) Timeframe: 3 Days Location: [facility] Ordered By: Dr. Katie Bah Referrals / Follow Up: Matt Chacon MD [Med Staff - Active Staff] - 03/22/25 3:30 pm Shon Lozada MD [Non-Staff -Ordering Privileges] - Disposition Disposition (needs filled in before D/C Order can be placed): [facility] Facility Charges/Coding Visit Charges Inpatient E&M: 36192 Disch Hosp >30min
[2025-03-08] MEDS: Senna/Docusate Sodium 1 Tablet 2 TABLET PO (21:00)
[2025-03-08] MEDS: MELATONIN 3 MG TABLET 1.5 MG PO (21:00)
[2025-03-09] MEDS: Arthritis Pain Compound 60 CLICK TUBE TOPICAL (04:34)
[2025-03-09 06:00] VITALS: BP 158/49; PULSE 61; RESP 16; TEMP 36.6; O2SAT 99
[2025-03-09 08:10] VITALS: BP 146/46; PULSE 63
[2025-03-09] MEDS: APIXABAN 2.5 MG TABLET (WCH) PO (08:10)
[2025-03-09] MEDS: NIFEdipine 30 MG Tablet PO (08:10)
--- NOTE | 2025-03-09 11:09 | NURSING ---
Report called to [facility], spoke with Vernell.
[2025-03-09] MEDS: Ergocalciferol 1.25 MG (50, 000 UNIT) Capsule PO (11:12)
== END 2025-03-09 13:26 | disposition skilled nursing facility (03) | DRG 560 ==
PROVIDERS: Admitting Provider Internal Medicine; PCP Family Medicine Geriatric Medicine; Referring Provider Internal Medicine; Visit Provider Internal Medicine
DX: S72.142D Displaced intertrochanteric fracture of left femur, subsequent encounter for closed fracture with routine healing (principal); E87.1 Hypo-osmolality and hyponatremia; D62 Acute posthemorrhagic anemia; N30.00 Acute cystitis without hematuria; E11.9 Type 2 diabetes mellitus without complications; E55.9 Vitamin D deficiency, unspecified; B96.20 Unspecified Escherichia coli [E. coli] as the cause of diseases classified elsewhere; G20.A1 Parkinson's disease without dyskinesia, without mention of fluctuations; F02.80 Dementia in other diseases classified elsewhere, unspecified severity, without behavioral disturbance, psychotic disturbance, mood disturbance, and anxiety; E89.0 Postprocedural hypothyroidism; I10 Essential (primary) hypertension; I08.1 Rheumatic disorders of both mitral and tricuspid valves; I48.0 Paroxysmal atrial fibrillation; I95.1 Orthostatic hypotension; K59.00 Constipation, unspecified; E78.5 Hyperlipidemia, unspecified; W19.XXXD Unspecified fall, subsequent encounter; R39.81 Functional urinary incontinence; M81.0 Age-related osteoporosis without current pathological fracture; Z79.899 Other long term (current) drug therapy
CPT/HCPCS: 36415; 72170; 73552; 80048; 80053; 81001; 82274; 82607; 82728; 82962; 83540; 83550; 83735; 83930; 83935; 84100; 84300; 85014; 85018; 85025; 87077; 87086; 87088; 87186; 92507; 92523; 93005; 93306; 93971; 94668; 97110; 97116; 97129; 97130; 97162; 97166; 97530; 97535; 97542; 97802; 97803; A4216

== ENCOUNTER 2025-03-18 10:20 | Emergency (ER) | payer MEDICARE, SELFPAY ==
[2025-03-18 10:21] VITALS: BP 117/48; PULSE 72; RESP 16; TEMP 36.8; O2SAT 100; BMI 23.1
--- NOTE | 2025-03-18 10:29 | CT_ITS ---
PROCEDURE: BRAIN/HEAD WITHOUT CONTRAST 03/18/2025 REASON FOR EXAM: BLUNT HEAD TRAUMA ON ELIQUIS TECHNIQUE: BRAIN/HEAD WITHOUT CONTRAST Coronal and Sagittal reconstruction series were provided. One or more dose reduction techniques were used (e.g., Automated exposure control, adjustment of the mA and/or kV according to patient size, use of iterative reconstruction technique. RADIATION DOSE SUMMARY: CTDlvol: 29.7 mGy DLP: 526.67 mGycm COMPARISON: None. FINDINGS: Brain: Extensive low density in the deep cerebral white matter most likely represents advanced chronic small vessel ischemic disease. No acute territorial infarction. No intracranial hemorrhage. No mass-effect or midline shift. CSF Spaces: Advanced generalized cerebral atrophy Sinuses/Mastoids: Clear. Bones: No acute bony abnormalities. CT/Brain/Head without Contrast IMPRESSION: No acute intracranial abnormalities. Reading Location: [id number]
--- NOTE | 2025-03-18 10:29 | EX.ED.GENINJ ---
HPI History of Present Illness Chief Complaint: Fall Detail of Chief Complaint: Patient presents from nursing facility status post fall Informant: patient, EMS and SNF Onset/Context/Timing Onset: Today Mechanism/Context: Blunt Injury and Fall Location of pain/injuries: - (Paramedics list complains of shoulder pain she denies shoulder pain) Quality of Pain: Dull Location: Parietal occipital region on the left Current Severity: Mild Maximum Severity: Moderate Worsened by: Blunt head trauma Relieved by: Nothing Associated Symptoms Associated Symptoms: Positive for Amnesia; Negative for Parasthesias, Weakness, Loss of function, Inability to ambulate or Loss of consciousness Narrative Narrative: Patient is a 79-year-old woman. She presents from [facility]. She has history of Parkinson disease with falls. She is on Eliquis. She had an unwitnessed fall. She complains of head pain and headache. She does remember the fall. She remembers hitting her head but not able to make anything else. She is normally disoriented to time. She denies neck pain. She denies paresthesia, anesthesia or motor weakness upper or lower extremity. She denies trouble with her speech or swallowing. She denies right or left shoulder pain. She denies chest pain. She denies any neck pain. Prior similar symptoms: Yes Recent Illness/Hospitalization: No PFSH PFS Medical History Cognitive dysfunction History of hemorrhoids Murmur, cardiac Hyperlipemia Hypothyroidism Diabetes mellitus, type 2 High total serum IgA Pre-syncope Tachycardia Elevated troponin Choledocholithiasis Rheumatoid arthritis Kidney stones Asthma Irregular heart beat Migraines Parkinson's disease Wears glasses Arthritis Restless legs Syncope Dietary restriction Non-smoker Leg cramps Chronic anemia Hypertension Home Medications Medication Instructions Recorded Last Taken Type carbidopa 25 mg-levodopa 100 mg 1 tab PO TID parkinson 02/15/25 02/21/25 History tablet losartan 50 mg tablet 50 mg PO DAILY blood pressure 02/15/25 02/15/25 History Held on 02/21/25. Instructions: Until blood pressures are consistently greater than 130 systolic acetaminophen 500 mg tablet 1,000 mg (2 x 500 mg) PO Q8 pain 02/21/25 02/21/25 Rx #0 tabs ergocalciferol (vitamin D2) 1,250 1,250 mcg PO Q7D supplement #0 caps 07/02/25 Unknown Rx mcg (50,000 unit) capsule (Vitamin D2) apixaban 5 mg tablet (Eliquis) 2.5 mg (1/2 x 5 mg) PO BID DVT 03/08/25 Unknown Rx prophylaxis #1 TAB bisacodyl 10 mg rectal suppository 10 mg SC X1 PRN Constipation #1 ea 03/08/25 Unknown Rx calcium carbonate 500 mg (2.5 x 200 mg calcium (500 03/08/25 Unknown Rx mg)) PO TIDCM #1 TAB diclofenac sodium 1 % topical gel 2 g topical BID #100 grams 03/08/25 Unknown Rx (Voltaren Arthritis Pain) levothyroxine 25 mcg tablet 25 mcg PO DAILY@0600 #1 TAB 03/08/25 Unknown Rx magnesium hydroxide 400 mg/5 mL 30 ml PO X1 PRN Constipation #30 mL 03/08/25 Unknown Rx oral suspension melatonin 3 mg tablet 1.5 mg (1/2 x 3 mg) PO QHS #1 TAB 03/08/25 Unknown Rx metformin 500 mg tablet 750 mg (1.5 x 500 mg) PO DAILYCM 03/08/25 Unknown Rx #1 TAB metoprolol tartrate 25 mg tablet 25 mg PO BID #1 TAB 03/08/25 Unknown Rx nifedipine 30 mg tablet,extended 30 mg PO 1000 #1 TAB 03/08/25 Unknown Rx release 24 hr sennosides 8.6 mg-docusate sodium 2 tab PO BID #1 TAB 03/08/25 Unknown Rx 50 mg tablet (Stimulant Laxative Plus) tramadol 50 mg tablet 25 mg (1/2 x 50 mg) PO 03/08/25 Unknown Rx 0700,1400,2100 1 week #21 tabs Allergy/AdvReac Type Severity Reaction Status Date / Time Penicillins Allergy Intermediate Hives Verified 03/18/25 10:23 Family History Father Myocardial infarction Hypertension Heart disease Sister Breast cancer Mother CVA (cerebral vascular accident) Surgical History Status post hip surgery History of open reduction and internal fixation (ORIF) procedure Hx of right cataract extraction Hx of left cataract extraction Hx of esophagogastroduodenoscopy Hx of colonoscopy History of ERCP S/P tubal ligation History of thoracic surgery H/O thyroidectomy History of cholecystectomy Hx of appendectomy Social History household members: other details: with son Stoney Smoking Status: Never smoker alcohol intake: never substance use type: does not use what type of physical activity do you participate in: none do you feel safe at home: Yes ROS ROS ED Constitutional Constitutional ED: Denies chills, fever(s) or subjective Eyes Eyes: Denies blurry vision or change in vision ENT ENT ED: Denies ear pain or rhinorrhea Cardiovascular Cardiovascular: Denies chest pain or palpitations Respiratory/Chest Respiratory/Chest: Denies cough, dyspnea or dyspnea on exertion Gastrointestinal Gastrointestinal: Denies abdominal pain, nausea or vomiting Musculoskeletal Musculoskeletal: Denies back pain or neck pain Integumentary Denies Abrasions or rash Neurologic Neurologic: Reports headache(s); Denies paresthesias or weakness Hematologic/Lymphatic Hematologic/Lymphatic: Denies easy bleeding or easy bruising EXAM Physical Exam Const Vital Signs: 03/18/25 10:21 03/18/25 10:24 Temperature 98.3 F Temperature Source Oral Pulse Rate 72 Respiratory Rate 16 Respiratory Effort Normal Non-Labored Respiratory Depth Normal Blood Pressure 117/48 L Blood Pressure Mean 71 Pulse Ox 100 Oxygen Delivery Method Room Air Positive well nourished and well developed General Appearance ED: well developed and NAD HEENT Reports TM's clear HEENT Narrative: There is small contusion noted left occipital parietal area. There is no palpable depression. There is no clinical signs of basilar skull fracture. trauma and tenderness Nose: Negative for septum abnormal Tympanic Membrane ED: Yes TM's clear Eyes PERRL and EOMs intact bilaterally General Eye ED: Yes other Other Details: There is no subconjunctival hemorrhage. There is no nystagmus. Neck full ROM Neck Narrative: There is no midline tenderness. There is no paracervical tenderness. There is no evidence of trauma to the neck. General: Negative for tenderness Chest Wall palpation of chest normal Chest Narrative: Patient has a median sternotomy scar noted. This is well-healed. Resp normal respiratory effort and clear to auscultation bilaterally Cardio regular rhythm, S1 normal heart sound, S2 normal heart sound and no murmurs Rate: regular rate GI normal to inspection, nondistended, normoactive bowel sounds, non-tender, non-distended and no masses GI Narrative: There is no palpable pulsatile mass. There is no abdominal bruit. Palpation: soft Back/Spine normal to inspection and no thoracic nor lumbar tenderness Lumbar Spine / Lower Back: straight leg raise negative bilaterally Extremity normal to inspection and full ROM Extremity Narrative: There is no pain ovation of the left shoulder right clavicle. There is no pain ovation over the left or right AC joint. There is no pain ovation of the proximal humerus on the right or left. She has full active range of motion at the shoulder, elbow and wrist. Axillary, median, radial and ulnar function intact. Neuro No oriented x3 and CN's II-XII intact bilaterally Fawn Coma Scale: document GCS findings Spontaneous Obeys Commands Confused 14 Sensorium / Orientation: oriented to person and oriented to place; Negative for oriented to time Plantar Reflex: Downgoing: left and Upgoing (positive Babinski): right Psych mental status grossly normal and thought process normal Skin no rashes or lesions noted, no wounds, skin turgor normal and no jaundice MDM MDM MDM Narrative Medical decision making narrative: Since patient has head trauma on Eliquis has a Babinski sign with no history of stroke need to entertain possibility of intracranial bleed i.e. subdural hematoma, epidural hematoma, traumatic subarachnoid hemorrhage and parenchymal contusion. For this reason CT of the head was obtained. She has no tenderness of her cervical spine full active range of motion is able to perceive even pain and light touch in my opinion she does not need x-ray of her neck. History & Record Review Additional record(s) reviewed:: Prior inpatient record (Recent discharge, March 08, discharge summary authored by Katie GROSS was reviewed. Discharge diagnoses debility, intertrochanteric fracture of left femur, hyponatremia, hypoosmolarity and hyponatremia. Vitamin D deficiency, hypothyroidism and Parkinson's disease), Prior ED visit and Prior labs Radiography Diagnostic Testing: Clinical Impression(s) from Imaging Studies Brain CT 03/18/25 10:29 IMPRESSION: No acute intracranial abnormalities. Reading Location: [facility] C-minus of the head reveals no evidence of fracture, subdural hematoma, epidural hematoma, subarachnoid hemorrhage or traumatic contusion. There is no fluid noted in the sinuses per awaiting formal read by radiologist, 1103. The CT report was reviewed at 1137. Plan is to discharge back to [facility]. Discharge Plan Triage Chief Complaint: Fall ED Provider: Cj Ordonez Dx/Rx/DC Orders Clinical Impression: CHI (closed head injury), Debility, Anticoagulant long-term use, Injury due to fall, Fawn coma scale score 13-15, at arrival to emergency department Instructions: ED Head Injury (Adult) Prescriptions: No Action losartan 50 mg tablet 50 mg PO DAILY carbidopa-levodopa 25-100 mg tablet 1 tab PO TID acetaminophen 500 mg Tablet 1,000 mg PO Q8 Qty: 0 0RF ergocalciferol (vitamin D2) [Vitamin D2] 1,250 mcg (50,000 unit) Capsule 1,250 mcg PO Q7D Qty: 0 0RF metformin 500 mg Tablet 750 mg PO DAILYCM Qty: 1 0RF melatonin 3 mg Tablet 1.5 mg PO QHS Qty: 1 0RF levothyroxine 25 mcg Tablet 25 mcg PO DAILY@0600 Qty: 1 0RF magnesium hydroxide 400 mg/5 mL Suspension 30 ml PO X1 PRN (Reason: Constipation) Qty: 30 0RF bisacodyl 10 mg Suppository 10 mg SC X1 PRN (Reason: Constipation) Qty: 1 0RF calcium carbonate 200 mg calcium (500 mg) Tablet,Chewable 500 mg PO TIDCM Qty: 1 0RF metoprolol tartrate 25 mg Tablet 25 mg PO BID Qty: 1 0RF nifedipine 30 mg Tablet Extended Release 24hr 30 mg PO 1000 Qty: 1 0RF sennosides-docusate sodium [Stimulant Laxative Plus] 8.6-50 mg Tablet 2 tab PO BID Qty: 1 0RF tramadol 50 mg Tablet 25 mg PO 0700,1400,2100 7 Days Qty: 21 0RF diclofenac sodium [Voltaren Arthritis Pain] 1 % gel 2 g topical BID Qty: 100 0RF Rx Instructions: apply BID to both knees Eliquis 5 mg Tablet 2.5 mg PO BID Qty: 1 0RF Rx Instructions: DC after the last dose on 03/22/25 Primary Care Provider: Candelario Santana Chi Referrals: Candelario Santana Chi, MD [Primary Care Provider] - As Needed Activity Restrictions/Additional Instructions: Hold next 3 doses of Eliquis Print Language: Croatian Disposition Disposition: Home, Self Care
--- OUTSIDE RECORDS SUMMARY | 2025-03-18 11:10 | XMS RPT_ITS | CCD ---
Author Organization [facility] Care Team Providers Care Forestry Support Specialist Name Role Phone Abhay Ferreira . Unavailable Unavailable PROVIDER, UNKNOWN Unavailable Unavailable MAX, CANDELARIO-CHI Unavailable Unavailable Joe Hein Unavailable Unavailable PROVIDER, UNKNOWN Unavailable Unavailable Max, Candelario Chi Unavailable Unavailable REFERRINGCARYN Unavailable Unavailable MAX, CANDELARIO-CHI Unavailable Unavailable MAX, CANDELARIO-CHI Unavailable Unavailable Dr. Candelario Santana Chi Primary Care Provider [phone] Eber Robles Emergency Provider Dr. Jessica Yuan Attending Provider Dr. Jessica Yuan Admit Provider Dr. Jessica Yuan Other Provider Dr. Ash Araujo Other Provider Friend, Dr. Hardy Attending Provider [phone] Dr. Ash Araujo Referring Provider Dr. Ash Araujo Attending Provider Dr. Candelario Santana Chi Primary Care Provider Dr. Eber Robles Emergency Provider Dr. Jessica Yuan Attending Provider Dr. Jessica Yuan Admit Provider Dr. Jessica Yuan Other Provider Dr. Ash Araujo Referring Provider Dr. Ash Araujo Other Provider Friend, Dr. Hardy Attending Provider Dr. Ash Araujo Attending Provider Max, Dr. Candelario Angeles Referring Provider Max, Dr. Candelario Angeles Primary Care Provider Friend, Dr. Hardy Attending Provider Max, Dr. Candelario Angeles Primary Care Provider Max, Dr. Candelario Angeles Referring Provider Friend, Dr. Hardy Attending Provider Friend, Dr. Hardy Other Provider Shiv, Dr. Trotter Attending Provider Friend, Dr. Hardy Referring Provider Max, Dr. Candelario Angeles Primary Care Provider Max, Dr. Candelario Angeles Referring Provider Friend, Dr. Hardy Attending Provider Max ALFARO, Dr. Candelario Angeles Primary Care Provider Max ALFARO, Dr. Candelario Angeles Attending Provider Max ALFARO, Dr. Candelario Angeles Referring Provider Max ALFARO, Dr. Candelario Angeles Primary Care Provider Max ALFARO, Dr. Candelario Angeles Attending Provider Max ALFARO, Dr. Candelario Angeles Referring Provider Dr. Abdirashid Cano DO Referring Provider Dr. Abdirashid Cano DO Emergency Provider Chace ALFARO, Dr. Asher Admit Provider Chace ALFARO, Dr. Asher Attending Provider Chace ALFARO, Dr. Asher Other Provider Oswaldo ALFARO, Dr. Gutierrez Other Provider Dr. Gia Owusu DO Attending Provider Kristi DELEON, Dr. De Paz Other Provider Dr. Baldev Berry DO Attending Provider Oswaldo ALFARO, Dr. Gutierrez Attending Provider Umer DO, Dr. Nielsen Other Provider Shiv ALFARO, Dr. Trotter Attending Provider Chace ALFARO, Dr. Asher Referring Provider Sementi DO, Dr. Katie Bryan Admit Provider Sementi DO, Dr. Katie Bryan Attending Provide r Sementi DO, Dr. Katie Bryan Referring Provide r Sementi DO, Dr. Katie Bryan Other Provider Debbi ALFARO, Dr. Wilson Attending Provider Sesar ALFARO, Dr. De Paz Attending Provider oJ Valero Attending Provider [phone]([facility])[phone] Lakeshia Mas Referring Unavailable Sergo Chaney Attending Unavailable Max, Candelario Chi Primary Care Unavailable Max, Candelario Chi Primary Care Unavailable Max, Candelario Chi Referring Unavailable Max, Candelario Chi Attending Unavailable Max, Candelario Chi Primary Care Unavailable Max, Candelario Chi Attending Unavailable Max, Candelario Chi Referring Unavailable Pineda Abbott Referring Unavailable Max, Candelario Chi Primary Care Unavailable Pineda Abbott Attending Unavailable Abdirashid Cano Referring Unavailable Chacon, Matt Consulting Unavailable Matt Chacon Attending Unavailable Chace, Lakeshia Admitting Unavailable Max, Candelario Chi Primary Care Unavailable Lakeshia Mas Consulting Unavailable Baldev Berry Consulting Unavailable Gia Owusu Consulting Unavailable Max, Candelario Chi Attending Unavailable Max, Candelario Chi Primary Care Unavailable Max, Candelario Chi Referring Unavailable Max, Candelario Chi Primary Care Unavailable Max, Candelario Chi Attending Unavailable Abdirashid Cano Referring Unavailable Chacon, Matt Consulting Unavailable Lakeshia Mas Admitting Unavailable Max, Candelario Chi Primary Care Unavailable Gia Owusu Attending Unavailable Chace, Lakeshia Consulting Unavailable Baldev Berry Consulting Unavailable SemenKatie partida Admitting Unavaila ble Sementi, Katie Bryan Attending Unavaila ble Sementi, Katie Bryan Referring Unavaila ble Max, Candelario Chi Primary Care Unavailable Sementi, Katie Bryan Admitting Unavaila ble Sementi, Katie Bryan Attending Unavaila ble Sementi, Katie Bryan Consulting Unavaila ble Sementi, Katie Bryan Referring Unavaila ble Max, Candelario Chi Primary Care Unavailable Steve Werner Attending Unavailable Max, Candelario Chi Primary Care Unavailable Gia Owusu Attending Unavailable Jo Vizcarra Attending Unavailable Max, Candelario Chi Primary Care Unavailable Max, Candelario Chi Attending Unavailable Max, Candelario Chi Referring Unavailable Lakeshia Mas Attending Unavailable Baldev Berry Attending Unavailable Max, Candelario Chi Primary Care Unavailable Max, Candelario Chi Attending Unavailable Max, Candelario Chi Primary Care Unavailable Max, Candelario Chi Attending Unavailable Max, Candelario Chi Referring Unavailable Baldev Kaba Attending Unavailable Max, Candelario Chi Primary Care Unavailable Amx, Candelario Chi Primary Care Unavailable Max, Candelario Chi Attending Unavailable Max, Candelario Chi Referring Unavailable Allergies Allergy Classification Reported Allergen(s) Allergy Type Date of Onset Reaction(s) Facility (19 sources) Penicillins; Translations: [Penicillins] Allergy to substance 10-22-2020 [facility] Medications Current Medications Medication Drug Class(es) Dates Sig (Normalized) Sig (Original) acetaminophen 500 mg oral tablet (2 sources) Start: 02-21-2025 take 2 tablets by mouth every eight hours Acetaminophen 500 mg Tablet Active 1000 mg PO EVERY 8 HOURS 0 0 February 21, 2025 12:00am pain apixaban 5 mg oral tablet (3 sources) Factor Xa Inhibitor Start: 03-08-2025 take 1 tablet by mouth twice daily Apixaban (Eliquis) 5 mg Tablet Active 2.5 mg PO TWICE A DAY 1 0 March 08, 2025 4:45pm March 24, 2025 12:00am DVT prophylaxis DC after the last dose on 03/22/25 Start: 02-21-2025 End: 03-08-2025 take 2.5 mg by mouth twice daily Apixaban (Eliquis) 5 mg Tablet Discontinued 2.5 mg PO TWICE A DAY 0 February 21, 2025 12:00am March 24, 2025 12:00am March 08, 2025 4:45pm DVT prophylaxis aspirin 81 mg chewable tablet (8 sources) Platelet Aggregation Inhibitor, Nonsteroidal Anti-inflammatory Drug Start: 02-12-2017 take 81 mg by mouth once daily Aspirin Active 81 MG PO DAILY@0800 February 11, 2017 11:00pm atorvastatin 40 mg oral tablet (8 sources) HMG-CoA Reductase Inhibitor Start: 02-12-2017 take 40 mg by mouth once daily Atorvastatin Active 40 MG PO DAILY February 11, 2017 11:00pm bisacodyl 10 mg rectal suppository (1 source) Stimulant Laxative Start: 03-08-2025 Bisacodyl 10 mg Suppository Active 10 mg RC ONE TIME as needed for Constipation 1 March 08, 2025 12:00am calcium carbonate 500 mg chewable tablet (3 sources) Start: 02-21-2025 End: 03-08-2025 take 1 tablet by mouth three times daily at mealtime Calcium Carbonate 200 mg calcium (500 mg) Tablet,Chewable Active 500 mg PO 3 TIMES DAILY WITH MEALS 1 March 08, 2025 12:00am carbidopa 25 mg / levodopa 100 mg oral tablet (3 sources) Aromatic Amino Acid Decarboxylation Inhibitor, Aromatic Amino Acid Start: 02-15-2025 Carbidopa-Levodop a 25-100 mg tablet Active 1 {tbl} PO THREE TIMES A DAY February 15, 2025 12:00am parkinson diclofenac sodium 0.01 mg/mg topical gel (1 source) Nonsteroidal Anti-inflammatory Drug Start: 03-08-2025 Diclofenac Sodium (Voltaren Arthritis Pain) 1 % gel Active 2 g TOPICAL TWICE A DAY 100 March 08, 2025 12:00am apply BID to both knees docusate sodium 50 mg / sennosides, group home 8.6 mg oral tablet (3 sources) Start: 03-08-2025 Sennosides-Docusa te Sodium (Stimulant Laxative Plus) 8.6-50 mg Tablet Active 2 {tbl} PO TWICE A DAY 1 March 08, 2025 12:00am Start: 02-21-2025 End: 02-21-2025 Sennosides-Docusate Sodium ( Stimulant Laxative Plus) 8.6-50 mg Tablet Discontinued 2 {tbl} PO TWICE A DAY 0 February 21, 2025 12:00am February 21, 2025 2:26pm ergocalciferol 1.25 mg oral capsule (2 sources) Provitamin D2 Compound Start: 02-21-2025 Ergocalciferol (Vitamin D2) (Vitamin D2) 1,250 mcg (50,000 unit) Capsule Active 1250 ug PO Q7D 0 0 February 21, 2025 12:00am supplement glimepiride 4 mg oral tablet (2 sources) Sulfonylurea Start: 03-19-2020 take 4 mg by mouth once daily Glimepiride Active 4 MG PO DAILY March 19, 2020 3:14pm levoFLOXacin 500 mg oral tablet (2 sources) Quinolone Antimicrobial Start: 06-18-2022 take 500 mg by mouth once daily Levofloxacin Active 500 MG PO DAILY June 17, 2022 11:00pm levothyroxine sodium 0.025 mg oral tablet (19 sources) l-Thyroxine Start: 03-08-2025 take 1 tablet by mouth once daily Levothyroxine 25 mcg Tablet Active 25 ug PO DAILY@0600 1 0 March 08, 2025 12:00am Start: 02-12-2017 End: 02-15-2025 Levothyroxine 75 MCG tablet Discontinued 88 ug PO DAILY February 12, 2017 12:00am February 15, 2025 1:35pm Start: 02-12-2017 take 88 ug by mouth once daily Levothyroxine Active 88 MCG PO DAILY February 12, 2017 12:00am Start: 02-12-2017 take 75 ug by mouth once daily Levothyroxine Active 75 MCG PO DAILY February 11, 2017 11:00pm Magnesium Hydroxide (1 source) Start: 03-08-2025 take 1 mL by mouth o nce as needed for constipation Magnesium Hydroxide 400 mg/5 mL Suspension Active 30 mL PO ONE TIME as needed for Constipation 30 0 March 08, 2025 12:00am melatonin 3 mg oral tablet (3 sources) Start: 03-08-2025 take 1.5 mg by mouth at bedtime Melatonin 3 mg Tablet Active 1.5 mg PO AT BEDTIME 1 0 March 08, 2025 12:00am Start: 02-21-2025 End: 03-08-2025 take 1 tablet by mouth at bedtime as needed Melatonin 10 mg Tablet, Sublingual Discontinued 10 mg PO AT BEDTIME NEEDED as needed for Insomnia 0 February 21, 2025 12:00am March 08, 2025 4:42pm metFORMIN hydrochloride 500 mg oral tablet (11 sources) Biguanide Start: 03-08-2025 Metformin 500 mg Tablet Active 750 mg PO DAILY WITH MEALS 1 0 March 08, 2025 12:00am Start: 11-20-2022 End: 02-15-2025 Metformin 500 mg Tablet Exte nded Release 24 Hr Discontinued 1000 mg PO TWICE A DAY November 20, 2022 12:00am February 15, 2025 1:35pm Start: 11-20-2022 take 1000 mg by mout h twice daily Metformin Active 1000 MG PO TWICE A DAY November 20, 2022 12:00am metFORMIN hydrochloride 1000 mg / SITagliptin 50 mg oral tablet (8 sources) Biguanide, Dipeptidyl Peptidase 4 Inhibitor Start: 02-12-2017 Sitagliptin Phos-Metformin Active 1 EACH PO TWICE A DAY February 11, 2017 11:00pm metoprolol tartrate 25 mg oral tablet (19 sources) beta-Adrenergic Danya Start: 03-08-2025 take 1 tablet by mouth twice daily Metoprolol Tartrate 25 mg Tablet Active 25 mg PO TWICE A DAY 1 0 March 08, 2025 12:00am Start: 03-19-2020 End: 06-18-2022 take 1 tablet by mouth once daily Metoprolol Succinate 25 MG tablet extended release 24 hr Discontinued 25 mg PO DAILY March 19, 2020 12:00am June 18, 2022 3:32pm Check with primary doctor NIFEdipine 30 mg osmotic 24 hr extended release oral tablet (1 source) Dihydropyridine Calcium Channel Danya Start: 03-08-2025 take 1 tablet by mouth every twenty-four hours Nifedipine 30 mg Tablet Extended Release 24hr Active 30 mg PO 1000 1 0 March 08, 2025 12:00am predniSONE 20 mg oral tablet (2 sources) Start: 06-18-2022 take 20 mg by mouth once daily Prednisone Active 20 MG PO DAILY June 17, 2022 11:00pm traMADol hydrochloride 50 mg oral tablet (1 source) Opioid Agonist Start: 03-08-2025 Tramadol 50 mg Tablet Active 25 mg PO 0700,1400,2100 21 7 0 March 08, 2025 12:00am Completed/Discontinued Medications Medication Drug Class(es) Dates Sig (Normalized) Sig (Original) azithromycin 250 mg oral tablet (12 sources) Macrolide Antimicrobial Start: 06-18-2022 End: 06-25-2022 take 1 tablet by mouth once daily Azithromycin 250 mg tablet Discontinued 250 mg PO DAILY 7 7 0 June 18, 2022 12:00am June 24, 2022 12:00am June 25, 2022 12:14am canagliflozin 300 mg oral tablet (18 sources) Sodium-Glucose Cotransporter 2 Inhibitor Start: 02-12-2017 End: 06-18-2022 take 1 tablet by mouth once daily Canagliflozin 300 MG tablet Discontinued 300 mg PO DAILY February 12, 2017 12:00am June 18, 2022 3:31pm Check with primary doctor chlorthalidone 25 mg oral tablet (18 sources) Thiazide-like Diuretic Start: 02-12-2017 End: 06-18-2022 take 1 tablet by mouth once daily Chlorthalidone 25 MG tablet Discontinued 25 mg PO DAILY February 12, 2017 12:00am June 18, 2022 3:33pm Check with primary doctor cholecalciferol 0.05 mg oral capsule (10 sources) Vitamin D Start: 11-20-2022 End: 02-15-2025 take 1 capsule by mouth once daily Cholecalciferol (Vitamin D3) (Vitamin D3) 50 mcg (2,000 unit) Capsule Discontinued 50 ug PO DAILY November 20, 2022 12:00am February 15, 2025 1:35pm ciprofloxacin 500 mg oral tablet (15 sources) Quinolone Antimicrobial Start: 03-21-2022 End: 06-18-2022 take 1 tablet by mouth twice daily Ciprofloxacin Hcl (Cipro) 500 mg tablet Discontinued 500 mg PO TWICE A DAY 10 0 March 21, 2022 12:00am June 18, 2022 3:32pm lisinopril 20 mg oral tablet (18 sources) Angiotensin Converting Enzyme Inhibitor Start: 02-12-2017 End: 02-15-2025 take 1 tablet by mouth once daily Lisinopril 20 MG tablet Discontinued 20 mg PO DAILY February 12, 2017 12:00am February 15, 2025 1:35pm losartan potassium 50 mg oral tablet (3 sources) Angiotensin 2 Receptor Danya Start: 02-15-2025 Losartan 50 mg tablet Active 50 mg PO DAILY February 15, 2025 12:00am blood pressure On Hold: Until blood pressures are consistently greater than 130 systolic Start: 02-15-2025 take 1 tablet by mouth once da trever Losartan 50 mg tablet Active 50 mg PO DAILY February 15, 2025 12:00am oxyCODONE hydrochloride 5 mg oral tablet (20 sources) Opioid Agonist Start: 02-21-2025 End: 02-21-2025 take 1 tablet by mouth every four hours as needed for pain Oxycodone 5 mg Tablet Discontinued 5 mg PO EVERY 4 HOURS NEEDED as needed for Pain Score 4-10 6 1 0 February 21, 2025 February 21, 2025 2:26pm Intertrochanteric fracture of left femur Status post hip surgery Other specified postprocedural states Start: 05-12-2020 End: 05-15-2020 take 1 tablet by mouth every six hours as needed for pain Oxycodone 5 MG tablet Discontinued 5 mg PO EVERY 6 HOURS NEEDED as needed for Pain 12 3 0 May 12, 2020 May 14, 2020 12:00am May 15, 2020 12:02am Closed fracture of proximal end of humerus pioglitazone 30 mg oral tablet (18 sources) Peroxisome Proliferator Receptor alpha Agonist, Peroxisome Proliferator Receptor gamma Agonist, Thiazolidinedione Start: 03-19-2020 End: 02-15-2025 take 1 tablet by mouth once daily Pioglitazone 30 MG tablet Discontinued 30 mg PO DAILY March 19, 2020 12:00am February 15, 2025 1:36pm Check with primary doctor potassium chloride 10 meq extended release oral capsule (15 sources) Start: 03-21-2022 End: 06-18-2022 take 2 capsules by mouth once daily Potassium Chloride 10 mEq capsule, extended release Discontinued 20 meq PO DAILY 60 0 March 21, 2022 12:00am June 18, 2022 3:32pm Start: 03-21-2022 End: 06-18-2022 take 20 mEq by mouth once daily Potassium Chloride Discontinued 20 MEQ PO DAILY 60 March 21, 2022 12:00am June 18, 2022 3:32pm Problems Active Problems Problem Classification Problem Date Documented Da te Episodic/Chronic Acute myocardial infarction (18 sources) Myocardial infarction; Translations: [Non-ST elevation (NSTEMI) myocardial infarction] 05-12-2020 Chronic Biliary tract disease (20 sources) Common bile duct calculus; Translations: [Calculus of bile duct without cholangitis or cholecystitis without obstruction] Episodic Comment on above: she had an ERCP in 2 022 with temporary biliary stents by Dr. Tran. Cardiac dysrhythmias (3 sources) Paroxysmal atrial fibrillation; Translations: [Paroxysmal atrial fibrillation] Onset: 02-26-2025 Chronic Cardiac dysrhythmias (20 sources) Palpitations; Translations: [Tachycardia] Onset: 7 05-12-2020 Episodic Chronic obstructive pulmonary disease and bronchiectasis (20 sources) Bronchitis; Translations: [Bronchitis, not specified as acute or chronic] Episodic Conduction disorders (2 sources) Long QT syndrome; Translations: [Long QT syndrome] Onset: 7 Chronic Coronary atherosclerosis and other heart disease (2 sources) Old myocardial infarction; Translations: [Old myocardial infarction] Onset: 7 Chronic Deficiency and other anemia (20 sources) Anemia; Translations: [Anemia, unspecified] 03-20-2022 Episodic Comment on above: Normochromic normocy tic with an increased RDW. Deficiency and other anemia (1 source) Anemia, unspecified; Translations: [Anemia, unspecified] Onset: 5 Episodic Delirium, dementia, and amnestic and other cognitive disorders (3 sources) Cognitive disorder; Translations: [Unspecified mental disorder due to known physiological condition] Onset: 5 03-08-2025 Chronic Diabetes mellitus with complications (5 sources) Type 2 diabetes mellitus with hypoglycemia without coma; Translations: [Type 2 diabetes mellitus with other specified complication] Onset: 7 Chronic Diabetes mellitus without complication (20 sources) Type 2 diabetes mellitus; Translations: [Type 2 diabetes mellitus without complications] Onset: 5 03-20-2022 Chronic Comment on above: HGBA1C is 7.3 on no medications Disorders of lipid metabolism (20 sources) Hyperlipidemia, unspecified; Translations: [Hyperlipidemia] Onset: 7 03-19-2020 Chronic Comment on above: no on medication. E Codes: Fall (7 sources) Fall; Translations: [Unspecified fall, initial encounter] Onset: 5 02-15-2025 Episodic Essential hypertension (20 sources) Essential (primary) hypertension; Translations: [Hypertensive disorder] Onset: 7 03-20-2022 Chronic Fluid and electrolyte disorders (3 sources) Hyponatremia; Translations: [Hypo-osmolality and hyponatremia] Onset: 5 02-23-2025 Episodic Fracture of neck of femur (hip) (14 sources) Fracture of bone of hip region; Translations: [Fracture of unspecified part of neck of unspecified femur, initial encounter for closed fracture] Onset: 5 02-15-2025 Episodic Fracture of upper limb (18 sources) Closed fracture of upper end of humerus; Translations: [Unspecified fracture of upper end of right humerus, initial encounter for closed fracture] 05-13-2020 Episodic Genitourinary symptoms and ill-defined conditions (3 sources) Urinary incontinence; Translations: [Unspecified urinary incontinence] Onset: 5 03-08-2025 Chronic Heart valve disorders (2 sources) Combined rheumatic disorders of mitral, aortic and tricuspid valves; Translations: [Comb rheumatic disord of mitral, aortic and tricuspid valves] Onset: 7 Chronic Heart valve disorders (20 sources) Cardiac murmur, unspecified; Translations: [Heart murmur] Onset: 7 03-19-2020 Episodic Comment on above: Last echocardiogram was 2016 and at that time there was mild calcification of the aortic valve, mild left atrial enlargement and trivial MR and TR. Malaise and fatigue (3 sources) Asthenia; Translations: [Other malaise] Onset: 5 02-23-2025 Episodic Nutritional deficiencies (6 sources) Vitamin D deficiency; Translations: [Vitamin D deficiency, unspecified] Onset: 5 02-17-2025 Chronic Osteoporosis (2 sources) Osteoporosis; Translations: [Age-related osteoporosis without current pathological fracture] Onset: 5 03-09-2025 Chronic Other and ill-defined heart disease (1 source) Left atrial enlargement; Translations: [Cardiomegaly] 02-23-2025 Chronic Other circulatory disease (2 sources) Orthostatic hypotension; Translations: [Orthostatic hypotension] 03-08-2025 Episodic Other circulatory disease (2 sources) Carotid bruit; Translations: [Other specified symptoms and signs involving the circulatory and respiratory systems] 03-08-2025 Episodic Other circulatory disease (1 source) Other specified symptoms and signs involving the circulatory and respiratory systems; Translations: [Other specified symptoms and signs involving the circulatory and respiratory systems] Onset: 5 Episodic Other circulatory disease (1 source) Orthostatic hypotension; Translations: [Orthostatic hypotension] Onset: 5 Episodic Other gastrointestinal disorders (19 sources) History of hemorrhoid; Translations: [Personal history of other diseases of the digestive system] 05-12-2020 Episodic Other gastrointestinal disorders (20 sources) Occult blood in stools; Translations: [Other fecal abnormalities] 07-23-2020 Episodic Comment on above: has had this in the past and it was negative but, stool + on 02/22/25 Other gastrointestinal disorders (12 sources) Constipation; Translations: [Constipation, unspecified] 12-09-2022 Episodic Other gastrointestinal disorders (4 sources) Constipation, unspecified; Translations: [Constipation, unspecified] Onset: 5 12-09-2022 Episodic Other gastrointestinal disorders (2 sources) Incontinence of feces; Translations: [Full incontinence of feces] 03-08-2025 Episodic Other gastrointestinal disorders (1 source) Other fecal abnormalities; Translations: [Other fecal abnormalities] Onset: 5 Episodic Other gastrointestinal disorders (1 source) Personal history of other diseases of the digestive system; Translations: [Personal history of other diseases of the digestive system] Onset: 5 Episodic Other gastrointestinal disorders (1 source) Full incontinence of feces; Translations: [Full incontinence of feces] Onset: 5 Episodic Other hematologic conditions (12 sources) Raised cardiac enzyme or marker; Translations: [Other specified abnormalities of plasma proteins] 03-19-2020 Episodic Pancreatic disorders (not diabetes) (20 sources) Gallstone acute pancreatitis; Translations: [Biliary acute pancreatitis without necrosis or infection] Episodic Parkinson`s disease (1 source) Parkinson`s disease; Translations: [Parkinson's disease without dyskinesia, without mention of fluctuations] Onset: 5 Peripheral and visceral atherosclerosis (2 sources) Atherosclerosis of other arteries; Translations: [Atherosclerosis of other arteries] Onset: 7 Chronic Residual codes; unclassified (5 sources) History of operative procedure on hip; Translations: [Other specified postprocedural states] 02-19-2025 Episodic Residual codes; unclassified (2 sources) History of operation on musculoskeletal system; Translations: [Other specified postprocedural states] 03-08-2025 Episodic Comment on above: Left hip cephalomedu llary nailing 02/16/[address] Chacon Residual codes; unclassified (1 source) Other specified postprocedural states; Translations: [Other specified postprocedural states] Onset: 5 Episodic Residual codes; unclassified (1 source) Acquired 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; Translations: [Acquired 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] Onset: 5 Episodic Syncope (20 sources) Syncope and collapse; Translations: [Near syncope] Onset: 7 05-12-2020 Episodic Thyroid disorders (20 sources) Hypothyroidism, unspecified; Translations: [Hypothyroidism] Onset: 7 03-20-2022 Chronic Comment on above: Stopped taking her m eds because she felt "fine" Unclassified (2 sources) Parkinson's disease; Translations: [Parkinson's disease] 03-08-2025 Chronic Comment on above: Diagnosed by Dr. Bradley eric and placed on Sinemet. Unclassified (8 sources) Other specified abnormal findings of blood chemistry; Translations: [Raised cardiac enzyme or marker] Onset: 7 03-19-2020 Episodic Unclassified (1 source) Unknown / UNK(Unknown) Onset: 7 Unclassified (2 sources) After discharge Urinary tract infections (20 sources) Urinary tract infectious disease; Translations: [Urinary tract infection, site not specified] Episodic Past or Other Problems Problem Classification Problem Date Documented Date Episodic/Chronic Conditions associated with dizziness or vertigo (2 sources) Dizziness and giddiness; Translations: [Dizziness and giddiness] Onset: 03-05-2017 Episodic Contraceptive and procreative management (2 sources) Tubal ligation status; Translations: [Tubal ligation status] Onset: 02-13-2017 Episodic Noninfectious gastroenteritis (2 sources) Noninfective gastroenteritis and colitis, unspecified; Translations: [Noninfective gastroenteritis and colitis, unspecified] Onset: 02-13-2017 Episodic Nonspecific chest pain (2 sources) Chest pain, unspecified; Translations: [Chest pain, unspecified] Onset: 02-13-2017 Episodic Other aftercare (4 sources) 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, [address] Hematocrit (Bld) [Volume fraction] 28.8 % Low 37-47 [facility] Comment on above: Order Comment: 204 Performed By: #### L 500.4100, L500.4050, L100.0500 ####[facility] [address] [place], [address] Hemoglobin (Bld) [Mass/Vol] 10.4 g/dL Low 12.0-15.0 [facility] Comment on above: Order Comment: 204 Performed By: #### L 500.4100, L500.4050, L100.0500 ####[facility] [address] [place], [address] MCH (RBC) [Entitic mass] 32.4 pg High 27.0-32.0 [facility] Comment on above: Order Comment: 204 Performed By: #### L 500.4100, L500.4050, L100.0500 ####[facility] [address] [place], [address] MCHC (RBC) [Mass/Vol] 36.1 g/dL High 32-36 [facility] Comment on above: Order Comment: 204 Performed By: #### L 500.4100, L500.4050, L100.0500 ####[facility] [address] [place], [address] MCV (RBC) [Entitic vol] 89.7 fL Normal 81-99 [facility] Comment on above: Order Comment: 204 Performed By: #### L 500.4100, L500.4050, L100.0500 ####[facility] [address] [place], [address] Platelet mean volume (Bld) [Entitic vol] 9.4 fL Normal 6.2-12.0 [facility] Comment on above: Order Comment: 204 Performed By: #### L 500.4100, L500.4050, L100.0500 ####[facility] [address] [place], [address] Platelets (Bld) [#/Vol] 240 10*3/uL Normal 150-450 [facility] Comment on above: Order Comment: 204 Performed By: #### L 500.4100, L500.4050, L100.0500 ####[facility] [address] [place], [address] RBC (Bld) [#/Vol] 3.21 10*6/uL Low 4.2-5.4 [facility] Comment on above: Order Comment: 204 Performed By: #### L 500.4100, L500.4050, L100.0500 ####[facility] [address] [place], [address] RDW SD 47.8 fl High 35.1-43.9 [facility] Comment on above: Order Comment: 204 Performed By: #### L 500.4100, L500.4050, L100.0500 ####[facility] [address] [place], [address] WBC (Bld) [#/Vol] 6.3 10*3/uL Normal 4.4-11.0 [facility] Comment on above: Order Comment: 204 Performed By: #### L 500.4100, L500.4050, L100.0500 ####[facility] [address] [place], [address] Comprehensive Metabolic Prof ilon 03-13-2025 Albumin [Mass/Vol] 3.1 g/dL Low 3.4-4.8 [facility] Comment on above: Order Comment: 204 Performed By: #### L 500.4100, L500.4050, L100.0500 ####[facility] [address] [place], [address] Albumin/Globulin [Mass ratio] 1.0 {ratio} Normal 0.9-2.4 [facility] Comment on above: Order Comment: 204 Performed By: #### L 500.4100, L500.4050, L100.0500 ####[facility] [address] [place], [address] ALK PHOS 130 U/L High 35-104 [facility] Comment on above: Order Comment: 204 Performed By: #### L 500.4100, L500.4050, L100.0500 ####[facility] [address] [place], [address] ALT [Catalytic activity/Vol] 6 U/L Normal <=34 [facility] Comment on above: Order Comment: 204 Performed By: #### L 500.4100, L500.4050, L100.0500 ####[facility] [address] [place], [address] AST [Catalytic activity/Vol] 29 U/L Normal <=31 [facility] Comment on above: Order Comment: 204 Performed By: #### L 500.4100, L500.4050, L100.0500 ####[facility] [address] [place], [address] Bilirubin [Mass/Vol] 0.55 mg/dL Normal 0.00-1.30 [facility] Comment on above: Order Comment: 204 Performed By: #### L 500.4100, L500.4050, L100.0500 ####[facility] [address] [place], [address] BUN/CRE 30.1 RATIO High 10-20 [facility] Comment on above: Order Comment: 204 Performed By: #### L 500.4100, L500.4050, L100.0500 ####[facility] [address] [place], [address] Calcium [Mass/Vol] 9.9 mg/dL Normal 7.6-11.0 [facility] Comment on above: Order Comment: 204 Performed By: #### L 500.4100, L500.4050, L100.0500 ####[facility] [address] [place], [address] Chloride [Moles/Vol] 99 mmol/L Normal 98-108 [facility] Comment on above: Order Comment: 204 Performed By: #### L 500.4100, L500.4050, L100.0500 ####[facility] [address] [place], [address] CO2 [Moles/Vol] 21.2 mmol/L Normal 21.0-32.0 [facility] Comment on above: Order Comment: 204 Performed By: #### L 500.4100, L500.4050, L100.0500 ####[facility] [address] [place], [address] Creatinine [Mass/Vol] 0.49 mg/dL Low 0.70-1.20 [facility] Comment on above: Order Comment: 204 Performed By: #### L 500.4100, L500.4050, L100.0500 ####[facility] [address] [place], [address] GAP 12 Normal 5-15 [facility] Comment on above: Order Comment: 204 Performed By: #### L 500.4100, L500.4050, L100.0500 ####[facility] [address] [place], [address] GFR/1.73 sq M.predicted among non-blacks MDRD (S/P/Bld) [Vol rate/Area] 97 mL/min/{1.73_m2} Normal >60 [facility] Comment on above: Order Comment: 204 Result Comment: mL/m in/1.73m2 CKD-EPI Creatinine Equation (2020) Performed By: #### L 500.4100, L500.4050, L100.0500 ####[facility] [address] [place], [address] Globulin (S) [Mass/Vol] 3.2 g/dL Normal 2.2-4.2 [facility] Comment on above: Order Comment: 204 Performed By: #### L 500.4100, L500.4050, L100.0500 ####[facility] [address] [place], [address] Glucose [Mass/Vol] 74 mg/dL Normal 70-99 [facility] Comment on above: Order Comment: 204 Performed By: #### L 500.4100, L500.4050, L100.0500 ####[facility] [address] [place], [address] Potassium [Moles/Vol] 4.1 mmol/L Normal 3.3-5.1 [facility] Comment on above: Order Comment: 204 Performed By: #### L 500.4100, L500.4050, L100.0500 ####[facility] [address] [place], [address] Sodium [Moles/Vol] 132 mmol/L Low 133-145 [facility] Comment on above: Order Comment: 204 Performed By: #### L 500.4100, L500.4050, L100.0500 ####[facility] [address] [place], [address] T PROT 6.3 g/dL Normal 5.9-8.4 [facility] Comment on above: Order Comment: 204 Performed By: #### L 500.4100, L500.4050, L100.0500 ####[facility] [address] [place], [address] Urea nitrogen [Mass/Vol] 15 mg/dL Normal 4-19 [facility] Comment on above: Order Comment: 204 Performed By: #### L 500.4100, L500.4050, L100.0500 ####[facility] [address] [place], [address] Lipid Profileon 03-13-2025 CHOL:HDL 3.18 Normal [facility] Comment on above: Order Comment: 204 Performed By: #### L 500.4100, L500.4050, L100.0500 ####[facility] [address] [place], [address] Cholesterol [Mass/Vol] 132 mg/dL Normal <=200 [facility] Comment on above: Order Comment: 204 Result Comment: Chol esterol level, Desirable <200 mg/dLBorderline high cholesterol 200-239 mg/dLHigh cholesterol >=240 mg/dLRecommendations of the NCEP Adult Treatment Panel for thefollowing risk-cutoff thresholds for the [place] Americanpulation. Performed By: #### L 500.4100, L500.4050, L100.0500 ####[facility] [address] [place], [address] Cholesterol in HDL [Mass/Vol] 42 mg/dL Normal [facility] Comment on above: Order Comment: 204 Result Comment: Sydni onal Cholesterol Education Program (NCEP) guidelines:<40 mg/dL: Low HDL-cholesterol (major risk factor for CHD)>= 60 mg/dL: High HDL-cholesterol (negative risk factor forCHD)HDL-cholesterol is affected by a number of factors, e.g.smoking, exercise, hormones, sex and age. Performed By: #### L 500.4100, L500.4050, L100.0500 ####[facility] [address] [place], [address] Cholesterol in LDL [Mass/Vol] 70 mg/dL Normal [facility] Comment on above: Order Comment: 204 Result Comment: Bord xjyytu=896-060 mg/dL Higher Guyf=155 mg/dL or greater Performed By: #### L 500.4100, L500.4050, L100.0500 ####[facility] [address] [place], [address] Cholesterol in VLDL [Mass/Vol] 20 mg/dL Normal 5-40 [facility] Comment on above: Order Comment: Performed By: #### L 500.4100, L500.4050, L100.0500 ####[facility] [address] [place], [address] Triglyceride [Mass/Vol] 101 mg/dL Normal [facility] Comment on above: Order Comment: 204 Result Comment: The drugs N-Acetylcysteine and Metamizole may falselydepress this assay.Normal range: <150 mg/dLBorderline High: 150-199 mg/dLHigh: 200-499 mg/dLVery High: >500 mg/dL Performed By: #### L 500.4100, L500.4050, L100.0500 ####[facility] [address] [place], [address] Anion gap in Serum or Plasma Ordered By: Katie Bah on 03-05-2025 Anion gap [Moles/Vol] 11 mmol/L 5-15 [facility] BUN/creatinine ratioOrdered By: Katie Bah on 03-05-2025 Urea nitrogen/Creatinine [Mass ratio] 31.2 mg/mg High 10- [facility] Basic Metabolic Profile (BMP )on 03-05-2025 BUN/CRE 31.2 RATIO High - [facility] Comment on above: Performed By: #### L 500.2500, L501.5200, L100.0600 ####[facility] [address] [place], [address] Calcium [Mass/Vol] 9.2 mg/dL Normal 7.6-11.0 [facility] Comment on above: Performed By: #### L 500.2500, L501.5200, L100.0600 ####[facility] [address] [place], [address] Chloride [Moles/Vol] 102 mmol/L Normal 98-108 [facility] Comment on above: Performed By: #### L 500.2500, L501.5200, L100.0600 ####[facility] [address] [place], [address] CO2 [Moles/Vol] 21.2 mmol/L Normal 21.0-32.0 [facility] Comment on above: Performed By: #### L 500.2500, L501.5200, L100.0600 ####[facility] [address] [place], [address] Creatinine [Mass/Vol] 0.54 mg/dL Low 0.70-1.20 [facility] Comment on above: Performed By: #### L 500.2500, L501.5200, L100.0600 ####[facility] [address] [place], [address] ECRCL 50.99 ml/min Normal 50-250 [facility] Comment on above: Performed By: #### L 500.2500, L501.5200, L100.0600 ####[facility] [address] [place], [address] GAP 11 Normal 5-15 [facility] Comment on above: Performed By: #### L 500.2500, L501.5200, L100.0600 ####[facility] [address] [place], [address] GFR/1.73 sq M.predicted among non-blacks MDRD (S/P/Bld) [Vol rate/Area] 95 mL/min/{1.73_m2} Normal >60 [facility] Comment on above: Result Comment: mL/m in/1.73m2 CKD-EPI Creatinine Equation (2020) Performed By: #### L 500.2500, L501.5200, L100.0600 ####[facility] [address] [place], [address] Glucose [Mass/Vol] 90 mg/dL Normal 70-99 [facility] Comment on above: Performed By: #### L 500.2500, L501.5200, L100.0600 ####[facility] [address] [place], [address] Potassium [Moles/Vol] 4.1 mmol/L Normal 3.3-5.1 [facility] Comment on above: Performed By: #### L 500.2500, L501.5200, L100.0600 ####[facility] [address] [place], [address] Sodium [Moles/Vol] 134 mmol/L Normal 133-145 [facility] Comment on above: Performed By: #### L 500.2500, L501.5200, L100.0600 ####[facility] [address] [place], [address] Urea nitrogen [Mass/Vol] 17 mg/dL Normal 4-19 [facility] Comment on above: Performed By: #### L 500.2500, L501.5200, L100.0600 ####[facility] [address] [place], [address] Carbon dioxide, total [Moles /volume] in Central venous bloodOrdered By: Katie Bah on 03-05-2025 CO2 [Moles/Vol] 21.2 mmol/L 21.0-32.0 [facility] Chloride assayOrdered By: Shahida Bah on 03-05-2025 Chloride [Moles/Vol] 102 mmol/L 98-108 [facility] Glomerular filtration rate ( GFR) estimation/1.73 sq m using serum, plasma, or whole bOrdered By: Katie Bah on 03-05-2025 GFR/1.73 sq M.predicted among non-blacks MDRD (S/P/Bld) [Vol rate/Area] 95 mL/min/{1.73_m2} >60 [facility] Comment on above: mL/min/1.73m2 CKD-EP I Creatinine Equation (2020) HH, Hemoglobin AND Hematocri ton 03-05-2025 Hematocrit (Bld) [Volume fraction] 27.0 % Low 37-47 [facility] Comment on above: Performed By: #### L 500.2500, L501.5200, L100.0600 ####[facility] [address] [place], [address] Hemoglobin (Bld) [Mass/Vol] 9.5 g/dL Low 12.0-15.0 [facility] Comment on above: Performed By: #### L 500.2500, L501.5200, L100.0600 ####[facility] [address] [place], [address] Hematocrit Auto (Bld) [Volum e fraction]Ordered By: Katie Bah on 03-05-2025 Hematocrit (Bld) [Volume fraction] 27.0 % Low 37-47 [facility] Hemoglobin measurementOrdere d By: Katie Bah on 03-05-2025 Hemoglobin (Bld) [Mass/Vol] 9.5 g/dL Low 12.0-15.0 [facility] Magnesiumon 03-05-2025 Magnesium [Mass/Vol] 1.9 mg/dL Normal 1.5-2.2 [facility] Comment on above: Performed By: #### L 500.2500, L501.5200, L100.0600 ####[facility] [address] [place], [address] Magnesium measurement (mass/ volume)Ordered By: Katie Olvin on 03-05-2025 Magnesium (Unsp spec) [Mass/Vol] 1.9 mg/dL 1.5-2.2 [facility] Potassium measurement (mass/ volume)Ordered By: Katie Olvin on 03-05-2025 Potassium (Unsp spec) [Mass/Vol] 4.1 mmol/L 3.3-5.1 [facility] Serum creatinine measurement (mass/volume)Ordered By: Katie Olvin on 03-05-2025 Creatinine [Mass/Vol] 0.54 mg/dL Low 0.70-1.20 [facility] Serum glucose measurement (m ass/volume)Ordered By: [facility] 03-05-2025 Glucose [Mass/Vol] 90 mg/dL 70-99 [facility] Serum or plasma calcium sabino urement (mass/volume)Ordered By: Katie Olvin on 03-05-2025 Calcium [Mass/Vol] 9.2 mg/dL 7.6-11.0 [facility] Serum or plasma urea nitroge n measurement (mass/volume)Ordered By: Katie Bah on 03-05-2025 Urea nitrogen [Mass/Vol] 17 mg/dL 4-19 [facility] Sodium levelOrdered By: [facility] on 03-05-2025 Sodium [Moles/Vol] 134 mmol/L 133-145 [facility] Bedside Glucoseon 03-03-2025 FINGERSTICK GLU 175 mg/dL High 74-106 [facility] Comment on above: Result Comment: MARINA FERNANDEZ OF PATIENT CARE PER NURSING PROTOCOL Performed By: #### L 501.080 ####[facility] [address] [place], [place], [address](012) FINGERSTICK GLU 125 mg/dL High 74-106 [facility] Comment on above: Result Comment: MARINA GEMENT OF PATIENT CARE PER NURSING PROTOCOL Performed By: #### L 501.080 ####[facility] [address] [place], [address] Glucose measurement at [facility] deOrdered By: Katie Bah on 03-03-2025 Glucose [Mass/Vol] 175 mg/dL High 74-106 [facility] Comment on above: MANAGEMENT OF PATIEN T CARE PER NURSING PROTOCOL Bedside Glucoseon 03-02-2025 FINGERSTICK GLU 133 mg/dL High [address] [place] [address] Comment on above: Result Comment: MARINA GEMENT OF PATIENT CARE PER NURSING PROTOCOL Performed By: #### L 501.080 ####[facility] [address] [place], [address] FINGERSTICK GLU 119 mg/dL High [address] [place] [address] Comment on above: Result Comment: MARINA GEMENT OF PATIENT CARE PER NURSING PROTOCOL Performed By: #### L 501.080 ####[facility] [address] [place], [address] Femur Min 2 Viewson 03-02-20 25 Femur Min 2 Views Normal [facility] Pelvis 1 or 2 Viewson 2024 Pelvis 1 or 2 Views Normal [facility] Bedside Glucoseon 03-01-2025 FINGERSTICK GLU 157 mg/dL High 74-106 [facility] Comment on above: Result Comment: MARINA GEMENT OF PATIENT CARE PER NURSING PROTOCOL Performed By: #### L 501.080 ####[facility] [address] [place], [address] FINGERSTICK GLU 115 mg/dL High [address] [place] [address] Comment on above: Result Comment: MARINA GEMENT OF PATIENT CARE PER NURSING PROTOCOL Performed By: #### L 501.080 ####[facility] [address] [place], [address] Venous Duplex US, Unilateral on 03-01-2025 Venous Duplex US, Unilateral Normal [facility] Venous duplex ultrasound rep ortOrdered By: Baldev Kaba on 03-01-2025 US Vein [facility] [address] [place] [address] Venous Duplex US, Unilateral 03/01/25 1257 MR#: [id number] Acct: [id number] Name: SHASHI OSWALD Rep #:[id number] : 1945 79 From: Baldev Guajardo Attending Dr: Dr. Katie Bah, DO Status: ADM IN Ordering Dr: Katie Bah DO Date: 03/01/25 Location: RU Sex: F C Admitted: 02/21/25 Reason For Study Reason For Study: LLE Swelling Procedure LEFT This is a venous duplex using B-mode, color flow and GSV is normal. spectral Doppler. CFV is compressible, spontaneous, competent, and Exam performed portable in patient room. demonstrates pulsatile venous flow. The study was technically difficult. FV is compressible, spontaneous, competent and A preliminary report was called and/or faxed to Rehab demonstrates pulsatile venous flow. RN. POP V is compressible, spontaneous, competent and demonstrates pulsatile venous flow. T/P Trunk is compressible. PTV is compressible. LT PerV is compressible. VL/Venous Duplex US, Unilateral Interpretation Summary Deep veins of the left lower extremity are patent and compressible segmentally. There is no evidence of left lower extremity deep vein thrombosis. The left great saphenous vein appears patent andcompressible segmentally. __ Ordering Physician: Katie Bah Referring Physician: Candelario Santana Chi Performed By: Roman Fish, RVT 03/01/25 1607 Date _ Baldev Kaba MD CC: Dr. Katie Bah, DO; Dr. Candelario Santana MD ~ Date Dictated: 03/01/25 1257 Date Transcribed: 03/01/251606 Burrer Operator: Signed [facility] Work Phone: Bedside Glucoseon 02-28-2025 FINGERSTICK GLU 106 mg/dL Normal 74-106 [facility] Comment on above: Result Comment: MARINA GEMENT OF PATIENT CARE PER NURSING PROTOCOL Performed By: #### L 501.080 ####[facility] [address] [place], [address] Bedside Glucoseon 02-27-2025 FINGERSTICK GLU 112 mg/dL High 74-106 [facility] Comment on above: Result Comment: MARINA GEMENT OF PATIENT CARE PER NURSING PROTOCOL Performed By: #### L 501.080 ####[facility] [address] [place], [address] FINGERSTICK GLU 131 mg/dL High 74-106 [facility] Comment on above: Result Comment: MARINA GEMENT OF PATIENT CARE PER NURSING PROTOCOL Performed By: #### L 501.080 ####[facility] [address] [place], [address] Echocardiogram study reportO rdered By: Steve Werner on 02-27-2025 Study report [facility] [address] [place] [address] Echo Complete 02/27/25 1028 MR#: [id number] Acct: [id number] Name: SHASHI OSWALD Rep #:[id number] : 1945 79 From: Steve Guajardo Attending Dr: Dr. Katie Bah DO Status: ADM IN Ordering Dr: Katie Bah DO Date: 02/26/25 Location: Sex: F C Admitted: 02/21/25 Reason For Study Reason For Study: ATRIAL FIBRILLATION Procedure This was a 2D Doppler, Color Flow transthoracic echocardiogram. Exam performed portable in patient room. Left Ventricle Normal LV size. Left ventricular systolic function is normal. The left ventricular ejection fraction is 60 %. No regional wall motion abnormalities noted. Right Ventricle Normal RV size. Normal systolic function. Atria Normal left atrium. Normal right atrium. Mitral Valve Normal mitral valve. Mild (1+) eccentric mitral valve insufficiency. Tricuspid Valve Normal tricuspid valve. Mild tricuspid valve insufficiency. Pulmonary artery systolic pressure is 32 mmHg. Aortic Valve Trisinus/trileaflet aortic valve. Mild focal aortic valve calcification. Great Vessels Normal aortic root. The pulmonary artery is normal size. Inferior vena cava collapse with respiration. Pericardium/Pleural No pericardial effusion. MMode/2D Measurements & Calculations LVIDd: 4.2 cm IVSd: 0.99 cm LVOT diam: 1.9 cm LVIDs: 2.7 cm LVPWd: 1.0 cm LVOT area: 2.9 cm2 RVDd: 3.8 cm FS: 36.3 % __ asc Aorta Diam: 3.1 cm LAV(MOD-bp): 55.5 ml LVAd ap4: 19.5 cm2 LAV(MOD-bp) Indexed: 33.9 ml/m2 LVLd ap4: 7.0 cm LAV(MOD-sp2): 65.7 ml EDV(MOD-sp4): 46.5 ml LAV(MOD-sp4): 46.0 ml EDV(sp4-el): 45.9 ml LVAs ap4: 11.1 cm2 LVLs ap4: 6.0 cm ESV(MOD-sp4): 17.4 ml ESV(sp4-el): 17.4 ml EF(MOD-sp4): 62.5 % EF(sp4-el): 62.2 % ____ SV(MOD-sp4): 29.1 ml SV(MOD-sp2): 33.4 ml LVAd ap2: 20.3 cm2 LVLd ap2: 6.7 cm SI(MOD-sp4): 17.8 ml/m2 SI(MOD-sp2): 20.4 ml/m2 EDV(MOD-sp2): 51.1 ml EDV(sp2-el): 51.9 ml LVAs ap2: 11.0 cm2 LVLs ap2: 5.6 cm ESV(MOD-sp2): 17.7 ml ESV(sp2-el): 18.3 ml EF(MOD-sp2): 65.3 % __ SV(sp4-el): 28.5 ml Ao sinus diam: 3.[address] Junction: 2.6 cm __ LA A4 area: 18.9 cm2 LA dimension(2D): 4.1 cm RA A4 area: 11.2 cm2 TAPSE: 2.1 cm Time Measurements MV dec time: 0.21 sec Doppler Measurements & Calculations MV E max berlin: 124.2 cm/sec Lat Peak E' [place]: 10.5 cm/sec Med Peak E' [place]: 6.1 cm/sec MV A max berlin: 57.2 cm/sec E/E' lat: 11.8 E/E' med: 20.4 MV E/A: 2.2 ____ Ao V2 max: 161.8 cm/sec LV V1 max: 130.4 cm/sec MV dec slope: 580.0 cm/sec2 Ao max P.5 mmHg LV V1 max P.8 mmHg Ao V2 mean: 113.0 cm/sec LV V1 mean P.0 mmHg Ao mean P.7 mmHg LV V1 mean: 97.4 cm/sec Ao V2 VTI: 39.0 cm LV V1 VTI: 32.5 cm AV (velocity ratio): 0.83 KOFI(I,D): 2.4 cm2 KOFI(V,D): 2.3 cm2 ____ SV(LVOT): 92.8 ml PA V2 max: 74.8 cm/sec TR max berlin: 268.5 cm/sec TR max P.8 mmHg ECHO/Echo Complete Interpretation Summary Normal LV size. Left ventricular systolic function is normal. The left ventricular ejection fraction is 60 %. Mild focal aortic valve calcification. __ Ordering Physician: Katie Bah Referring Physician: Candelario Santana Chi Performed By: Patricia Mckeon RDCS 02/27/25 1449 Date _ Steve Werner MD CC: Dr. Katie Bah DO; Dr. Candelario Santana MD ~ Date Dictated: 02/27/25 1028 Date Transcribed: 02/27/25 144 Burrer Operator: Signed [facility] Work Phone: Basic Metabolic Profile (BMP )on 02-26-2025 BUN/CRE 23.8 RATIO High 10-20 [facility] Comment on above: Performed By: #### L 100.0600, L500.2500, L503.0106 ####[facility] [address] [place], [place], [id number] Calcium [Mass/Vol] 8.6 mg/dL Normal 7.6-11.0 [facility] Comment on above: Performed By: #### L 100.0600, L500.2500, L503.0106 ####[facility] [address] [place], [address] Chloride [Moles/Vol] 101 mmol/L Normal 98-108 [facility] Comment on above: Performed By: #### L 100.0600, L500.2500, L503.0106 ####[facility] [address] [place], [address] CO2 [Moles/Vol] 25.0 mmol/L Normal 21.0-32.0 [facility] Comment on above: Performed By: #### L 100.0600, L500.2500, L503.0106 ####[facility] [address] [place], [address] Creatinine [Mass/Vol] 0.52 mg/dL Low 0.70-1.20 [facility] Comment on above: Performed By: #### L 100.0600, L500.2500, L503.0106 ####[facility] [address] [place], [address] ECRCL 51.41 ml/min Normal 50-250 [facility] Comment on above: Performed By: #### L 100.0600, L500.2500, L503.0106 ####[facility] [address] [place], [address] GAP 7 Normal 5-15 [facility] Comment on above: Performed By: #### L 100.0600, L500.2500, L503.0106 ####[facility] [address] [place], [address] GFR/1.73 sq M.predicted among non-blacks MDRD (S/P/Bld) [Vol rate/Area] 96 mL/min/{1.73_m2} Normal >60 [facility] Comment on above: Result Comment: mL/m in/1.73m2 CKD-EPI Creatinine Equation (2020) Performed By: #### L 100.0600, L500.2500, L503.0106 ####[facility] [address] [place], [address] Glucose [Mass/Vol] 126 mg/dL High 70-99 [facility] Comment on above: Performed By: #### L 100.0600, L500.2500, L503.0106 ####[facility] [address] [place], [address] Potassium [Moles/Vol] 3.9 mmol/L Normal 3.3-5.1 [facility] Comment on above: Performed By: #### L 100.0600, L500.2500, L503.0106 ####[facility] [address] [place], [address] Sodium [Moles/Vol] 133 mmol/L Normal 133-145 [facility] Comment on above: Performed By: #### L 100.0600, L500.2500, L503.0106 ####[facility] [address] [place], [address] Urea nitrogen [Mass/Vol] 12 mg/dL Normal 4-19 [facility] Comment on above: Performed By: #### L 100.0600, L500.2500, L503.0106 ####[facility] [address] [place], [address] Bedside Glucoseon 02-26-2025 FINGERSTICK GLU 142 mg/dL High 74-106 [facility] Comment on above: Result Comment: MARINA GEMENT OF PATIENT CARE PER NURSING PROTOCOL Performed By: #### L 501.080 ####[facility] [address] [place], [address] FINGERSTICK GLU 121 mg/dL High 74-106 [facility] Comment on above: Result Comment: MARINA GEMENT OF PATIENT CARE PER NURSING PROTOCOL Performed By: #### L 501.080 ####[facility] [address] [place], [address] Echo Completeon 02-26-2025 Echo Complete Normal [facility] Electrocardiogram reportOrde red By: Steve Werner on 02-26-2025 EKG study [facility] [address] [place] [address] 12 Lead EKG 02/23/25 1235 MR#: [id number] Acct: [id number] Name: SHASHI OSWALD Rep #:[id number] : 1945 79 From: Steve Werner MD Attending Dr: Dr. Katie Bah DO Status: ADM IN Ordering Dr: Katie Bah DO Date: 02/23/25 Location: Sex: F C Admitted: 02/21/25 Test Reason : AF Blood Pressure : */* mmHG Vent. Rate : 92 BPM Atrial Rate : * BPM P-R Int : * ms QRS Dur : 76 ms QT Int : 358 ms P-R-T Axes : * -12 26 degrees QTcB Int : 442 ms Atrial fibrillation Abnormal ECG When compared with ECG of 16-Feb-2025 05:18, Previous ECG has undetermined rhythm, needs review Confirmed by DEBBI ALFARO, STEVE ([id number]), editor & co founder CHIOMA ARRIAZA ([id number]) on 02/26/2025 1:19:46 PM Referred By: Katie Bah Confirmed By: STEVE WERNER MD 02/26/25 1319 Date _ Steve Werner MD CC: Dr. Katie Bah DO; Dr. Candelario Santana MD ~ Signed [facility] Work Phone: HH, Hemoglobin AND Hematocri ton 02-26-2025 Hematocrit (Bld) [Volume fraction] 24.4 % Low 37-47 [facility] Comment on above: Performed By: #### L 100.0600, L500.2500, L503.0106 ####[facility] [address] [place], [address] Hemoglobin (Bld) [Mass/Vol] 8.4 g/dL Low 12.0-15.0 [facility] Comment on above: Performed By: #### L 100.0600, L500.2500, L503.0106 ####[facility] [address] [place], [address] Vitamin B12on 02-26-2025 Cobalamin (Vitamin B12) [Mass/Vol] 366 pg/mL Normal 180-914 [facility] Comment on above: Performed By: #### L 100.0600, L500.2500, L503.0106 ####[facility] [address] [place], [address] Vitamin B12 ser/plasOrdered By: Katie Bah on 02-26-2025 Cobalamin (Vitamin B12) [Mass/Vol] 366 pg/mL 180-914 [facility] Bedside Glucoseon 02-25-2025 FINGERSTICK GLU 184 mg/dL High 74-106 [facility] Comment on above: Result Comment: MARINA GEMENT OF PATIENT CARE PER NURSING PROTOCOL Performed By: #### L 501.080 ####[facility] [address] [place], [address] FINGERSTICK GLU 121 mg/dL High 74-106 [facility] Comment on above: Result Comment: MARINA GEMENT OF PATIENT CARE PER NURSING PROTOCOL Performed By: #### L 501.080 ####[facility] [address] [place], [address] FINGERSTICK GLU 214 mg/dL High 74-106 [facility] Comment on above: Result Comment: MARINA GEMENT OF PATIENT CARE PER NURSING PROTOCOL Performed By: #### L 501.080 ####[facility] [address] [place], [address] FINGERSTICK GLU 141 mg/dL High 74-106 [facility] Comment on above: Result Comment: MARINA GEMENT OF PATIENT CARE PER NURSING PROTOCOL Performed By: #### L 501.080 ####[facility] [address] [place], [address] Urine Cultureon 02-25-2025 URC Normal [facility] Comment on above: Performed By: #### L 400.0001, M100.2200 ####[facility] [address] [place], [address] Bedside Glucoseon 02-24-2025 FINGERSTICK GLU 199 mg/dL High 74-106 [facility] Comment on above: Result Comment: MARINA GEMENT OF PATIENT CARE PER NURSING PROTOCOL Performed By: #### L 501.080 ####[facility] [address] [place], [address] FINGERSTICK GLU 152 mg/dL High -106 [facility] Comment on above: Result Comment: MARINA GEMENT OF PATIENT CARE PER NURSING PROTOCOL Performed By: #### L 501.080 ####[facility] [address] [place], [address] FINGERSTICK GLU 196 mg/dL High -106 [facility] Comment on above: Result Comment: MARINA GEMENT OF PATIENT CARE PER NURSING PROTOCOL Performed By: #### L 501.080 ####[facility] [address] [place], [address] FINGERSTICK GLU 147 mg/dL High 74-106 [facility] Comment on above: Result Comment: MARINA GEMENT OF PATIENT CARE PER NURSING PROTOCOL Performed By: #### L 501.080 ####[facility] [address] [place], [address] 12 Lead EKGon 02-23-2025 12 Lead EKG Normal [facility] Bedside Glucoseon 02-23-2025 FINGERSTICK GLU 162 mg/dL High 74-106 [facility] Comment on above: Result Comment: MARINA GEMENT OF PATIENT CARE PER NURSING PROTOCOL Performed By: #### L 501.080 ####[facility] [address] [place], [address] FINGERSTICK GLU 183 mg/dL High 74-106 [facility] Comment on above: Result Comment: MARINA GEMENT OF PATIENT CARE PER NURSING PROTOCOL Performed By: #### L 501.080 ####[facility] [address] [place], [address] FINGERSTICK GLU 185 mg/dL High 74-106 [facility] Comment on above: Result Comment: MARINA GEMENT OF PATIENT CARE PER NURSING PROTOCOL Performed By: #### L 501.080 ####[facility] [address] [place], [address] FINGERSTICK GLU 153 mg/dL High 74-106 [facility] Comment on above: Result Comment: MARINA GEMENT OF PATIENT CARE PER NURSING PROTOCOL Performed By: #### L 501.080 ####[facility] [address] [place], [address] Bilirubin Test strip Ql (U)O rdered By: Katie Bah on 02-23-2025 Bilirubin Ql (U) Negative Negative [facility] Ketones Test strip Ql (U)Ord ered By: Katie Bah on 02-23-2025 Ketones Ql (U) Negative Negative [facility] Microscopic analysis of urin e for red blood cells (RBC)Ordered By: Katie Bah on 02-23-2025 Microscopic analysis of urine for red blood cells (RBC) 0 SEEN /hpf 0-5 [facility] Mucus LM Ql (Urine sed)Order ed By: Katie Bah on 02-23-2025 Mucus Ql (Urine sed) 0 SEEN /hpf [facility] Nitrite Test strip Ql (U)Ord ered By: Katie Bah on 02-23-2025 Nitrite Ql (U) Negative Negative [facility] Protein Test strip Ql (U)Ord ered By: Katie Bah on 02-23-2025 Protein Ql (U) 30 mg/dl High Negative [facility] Squamous epithelial cells de tection in urine sediment by light microscopyOrdered By: Katie Bah on 02-23-2025 Epithelial cells.squamous LM Ql (Urine sed) 0 SEEN /hpf 5-10 [facility] Urinalysis, Completeon 02-23 BACTERIA 1+ /hpf Normal None Seen [facility] Comment on above: Order Comment: BLADD ER TAP Performed By: #### L 400.0001, M100.2200 ####[facility] [address] [place], [address] WBC 0-5 SEEN Normal 0-5 [facility] Comment on above: Order Comment: BLADD ER TAP Performed By: #### L 400.0001, M100.2200 ####[facility] [address] [place], [address] EPI,SQUAMOUS 0 SEEN Normal -10 [facility] Comment on above: Order Comment: BLADD ER TAP Performed By: #### L 400.0001, M100.2200 ####[facility] [address] [place], [address] Mucus Ql (Urine sed) 0 SEEN Normal [facility] Comment on above: Order Comment: BLADD ER TAP Performed By: #### L 400.0001, M100.0 ####[facility] [address] [place], [address] RBC 0 SEEN Normal 0-[address] [place] [address] Comment on above: Order Comment: BLADD ER TAP Performed By: #### L 400.0001, M100.2200 ####[facility] [address] [place], [address] RBC 0-5 SEEN Normal 0-5 [facility] Comment on above: Order Comment: CLEAN CATCH Performed By: #### L 400.0001 ####[facility] [address] [place], [address] WBC 25-50 SEEN Normal 0-5 [facility] Comment on above: Order Comment: CLEAN CATCH Performed By: #### L 400.0001 ####[facility] [address] [place], [address] BACTERIA 3+ /hpf Normal None Seen [facility] Comment on above: Order Comment: CLEAN CATCH Performed By: #### L 400.0001 ####[facility] [address] [place], [place], [id number] EPI,SQUAMOUS 0-5 SEEN Normal 5-10 [facility] Comment on above: Order Comment: CLEAN CATCH Performed By: #### L 400.0001 ####[facility] [address] [place], [place], [address] Urine clarityOrdered By: Joya Bah on 02-23-2025 Clarity (U) Clear Clear [facility] Urine color determinationOrd ered By: Katie Bah on 02-23-2025 Color (U) Yellow Yellow [facility] Urine cultureOrdered By: Joya Bah on 02-23-2025 Bacteria identified Cx Nom (U) Escherichia coli Abnormal [facility] Urine glucose detectionOrder ed By: Katie Bah on 02-23-2025 Glucose Ql (U) 50 mg/dl High Normal [facility] Urine leukocyte esterase det ection by dipstickOrdered By: Katie Bah on 02-23-2025 Leukocyte esterase Test strip Ql (U) 100 /ul High Negative [facility] Urine pHOrdered By: Katie hanna on 02-23-2025 pH (U) 7.0 [pH] 5.0 - 8.0 [facility] Urine sediment bacteria coun t by microscopy (number/high power field)Ordered By: Katie Bah on 02-23-2025 Bacteria LM.HPF (Urine sed) [#/Area] 1 /[HPF] None Seen [facility] Urine specific gravity measu rementOrdered By: Katie Bah on 02-23-2025 Specific gravity (U) [Rel density] 1.010 1.002-1.030 [facility] Urine urobilinogen measureme ntOrdered By: Katie Bah on 02-23-2025 Urobilinogen Ql (U) Normal mg/dl Normal [facility] White blood cell countOrdere d By: Katie Bah on 02-23-2025 White blood cell count 0-5 SEEN /hpf 0-5 [facility] Absolute lymphocyte countOrd ered By: Katie Bah on 02-22-2025 Lymphocytes Auto (Unsp spec) [#/Vol] 1.94 10*3/uL 0.83-4.51 [facility] Absolute neutrophil countOrd ered By: Katie Bah on 02-22-2025 Neutrophils (Bld) [#/Vol] 5.3 10*3/uL 2.0-7.7 [facility] Automated lymphocyte count a s percentage of total leukocytesOrdered By: Katie Bah on 02-22-2025 Lymphocytes/100 WBC Auto (Unsp spec) 23.7 % 19-41 [facility] Basophil percentageOrdered B y: Katie Bah on 02-22-2025 Basophils/100 WBC (Bld) 0.4 % 0-1 [facility] Bedside Glucoseon 02-22-2025 FINGERSTICK GLU 182 mg/dL High 74-106 [facility] Comment on above: Result Comment: MARINA GEMENT OF PATIENT CARE PER NURSING PROTOCOL Performed By: #### L 501.080 ####[facility] [address] [facility] [address] FINGERSTICK GLU 195 mg/dL High [address] [place] [address] Comment on above: Result Comment: MARINA GEMENT OF PATIENT CARE PER NURSING PROTOCOL Performed By: #### L 501.080 ####[facility] [address] [facility] [address] FINGERSTICK GLU 254 mg/dL High [facility]106 [facility] Comment on above: Result Comment: MARINA GEMENT OF PATIENT CARE PER NURSING PROTOCOL Performed By: #### L 501.080 ####[facility] [address] [facility] [address] FINGERSTICK GLU 189 mg/dL High [address] [place] [address] Comment on above: Result Comment: MARINA GEMENT OF PATIENT CARE PER NURSING PROTOCOL Performed By: #### L 501.080 ####[facility] [address] [facility] [address] Bilirubin, totalOrdered By: Katie Bah on 02-22-2025 Bilirubin [Mass/Vol] 1.00 mg/dL 0.00-1.30 [facility] CBC W/Diff, Automatedon Absolute Lymph 1.94 X10 3/uL Normal 0.83-4.51 [facility] Comment on above: Performed By: #### L 501.2300, L501.5200, L100.0100, L500.4050 ####[facility] [address] [place], [address] Absolute Neut 5.3 X10 3/uL Normal 2.0-7.7 [facility] Comment on above: Performed By: #### L 501.2300, L501.5200, L100.0100, L500.4050 ####[facility] [address] [place], [address] Basophils/100 WBC (Bld) 0.4 % Normal 0-1 [facility] Comment on above: Performed By: #### L 501.2300, L501.5200, L100.0100, L500.4050 ####[facility] [address] [place], [address] Eosinophils/100 WBC (Bld) 3.0 % Normal 0-5 [facility] Comment on above: Performed By: #### L 501.2300, L501.5200, L100.0100, L500.4050 ####[facility] [address] [place], [address] Erythrocyte distribution width (RBC) [Ratio] 15.4 % High 11.6-14.6 [facility] Comment on above: Performed By: #### L 501.2300, L501.5200, L100.0100, L500.4050 ####[facility] [address] [place], [address] Hematocrit (Bld) [Volume fraction] 24.1 % Low 37-47 [facility] Comment on above: Performed By: #### L 501.2300, L501.5200, L100.0100, L500.4050 ####[facility] [address] [place], [address] Hemoglobin (Bld) [Mass/Vol] 8.5 g/dL Low 12.0-15.0 [facility] Comment on above: Performed By: #### L 501.2300, L501.5200, L100.0100, L500.4050 ####[facility] [address] [place], [address] IG% 0.700 Normal 0.0-0.9 [facility] Comment on above: Result Comment: IG% - Immature Granulocytes (promyelocytes, myelocytes andmetamyelocytes) > 1% indicates that a LEFT SHIFT is Present. Performed By: #### L 501.2300, L501.5200, L100.0100, L500.4050 ####[facility] [address] [place], [address] Lymphocytes/100 WBC (Bld) 23.7 % Normal 19-41 [facility] Comment on above: Performed By: #### L 501.2300, L501.5200, L100.0100, L500.4050 ####[facility] [address] [place], [address] MCH (RBC) [Entitic mass] 31.5 pg Normal 27.0-32.0 [facility] Comment on above: Performed By: #### L 501.2300, L501.5200, L100.0100, L500.4050 ####[facility] [address] [place], [address] MCHC (RBC) [Mass/Vol] 35.3 g/dL Normal 32-36 [facility] Comment on above: Performed By: #### L 501.2300, L501.5200, L100.0100, L500.4050 ####[facility] [address] [place], [address] MCV (RBC) [Entitic vol] 89.3 fL Normal 81-99 [facility] Comment on above: Performed By: #### L 501.2300, L501.5200, L100.0100, L500.4050 ####[facility] [address] [place], [address] Monocytes/100 WBC (Bld) 7.2 % Normal 0-10 [facility] Comment on above: Performed By: #### L 501.2300, L501.5200, L100.0100, L500.4050 ####[facility] [address] [place], [address] Neutrophils/100 WBC (Bld) 65.0 % Normal 47-70 [facility] Comment on above: Performed By: #### L 501.2300, L501.5200, L100.0100, L500.4050 ####[facility] [address] [place], [address] Nucleated RBC (Bld) [#/Vol] 0 10*3/uL Normal 0-5 [facility] Comment on above: Performed By: #### L 501.2300, L501.5200, L100.0100, L500.4050 ####[facility] [address] [place], [address] Platelet mean volume (Bld) [Entitic vol] 8.8 fL Normal 6.2-12.0 [facility] Comment on above: Performed By: #### L 501.2300, L501.5200, L100.0100, L500.4050 ####[facility] [address] [place], [address] Platelets (Bld) [#/Vol] 282 10*3/uL Normal 150-450 [facility] Comment on above: Performed By: #### L 501.2300, L501.5200, L100.0100, L500.4050 ####[facility] [address] [place], [address] RBC (Bld) [#/Vol] 2.70 10*6/uL Low 4.2-5.4 [facility] Comment on above: Performed By: #### L 501.2300, L501.5200, L100.0100, L500.4050 ####[facility] [address] [place], [address] RDW SD 49.5 fl High 35.1-43.9 [facility] Comment on above: Performed By: #### L 501.2300, L501.5200, L100.0100, L500.4050 ####[facility] [address] [place], [address] WBC (Bld) [#/Vol] 8.2 10*3/uL Normal 4.4-11.0 [facility] Comment on above: Performed By: #### L 501.2300, L501.5200, L100.0100, L500.4050 ####[facility] [address] [place], [address] Comprehensive Metabolic Prof [facility] 02-22-2025 Albumin [Mass/Vol] 2.6 g/dL Low 3.4-4.8 [facility] Comment on above: Performed By: #### L 501.2300, L501.5200, L100.0100, L500.4050 ####[facility] [address] [place], [address] Albumin/Globulin [Mass ratio] 0.9 {ratio} Normal 0.9-2.4 [facility] Comment on above: Performed By: #### L 501.2300, L501.5200, L100.0100, L500.4050 ####[facility] [address] [place], [address] ALK PHOS 106 U/L High 35-104 [facility] Comment on above: Performed By: #### L 501.2300, L501.5200, L100.0100, L500.4050 ####[facility] [address] [place], [address] ALT [Catalytic activity/Vol] U/L Normal <=34 [facility] Comment on above: Performed By: #### L 501.2300, L501.5200, L100.0100, L500.4050 ####[facility] [address] [place], [address] AST [Catalytic activity/Vol] 31 U/L Normal <=31 [facility] Comment on above: Performed By: #### L 501.2300, L501.5200, L100.0100, L500.4050 ####[facility] [address] [place], [address] Bilirubin [Mass/Vol] 1.00 mg/dL Normal 0.00-1.30 [facility] Comment on above: Performed By: #### L 501.2300, L501.5200, L100.0100, L500.4050 ####[facility] [address] [place], [address] BUN/CRE 32.5 RATIO High 10-20 [facility] Comment on above: Performed By: #### L 501.2300, L501.5200, L100.0100, L500.4050 ####[facility] [address] [place], [address] Calcium [Mass/Vol] 8.6 mg/dL Normal 7.6-11.0 [facility] Comment on above: Performed By: #### L 501.2300, L501.5200, L100.0100, L500.4050 ####[facility] [address] [place], [address] Chloride [Moles/Vol] 99 mmol/L Normal 98-108 [facility] Comment on above: Performed By: #### L 501.2300, L501.5200, L100.0100, L500.4050 ####[facility] [address] [place], [address] CO2 [Moles/Vol] 23.6 mmol/L Normal 21.0-32.0 [facility] Comment on above: Performed By: #### L 501.2300, L501.5200, L100.0100, L500.4050 ####[facility] [address] [place], [address] Creatinine [Mass/Vol] 0.47 mg/dL Low 0.70-1.20 [facility] Comment on above: Performed By: #### L 501.2300, L501.5200, L100.0100, L500.4050 ####[facility] [address] [place], [address] ECRCL 51.41 ml/min Normal 50-250 [facility] Comment on above: Performed By: #### L 501.2300, L501.5200, L100.0100, L500.4050 ####[facility] [address] [place], [address] GAP 8 Normal 5-15 [facility] Comment on above: Performed By: #### L 501.2300, L501.5200, L100.0100, L500.4050 ####[facility] [address] [place], [address] GFR/1.73 sq M.predicted among non-blacks MDRD (S/P/Bld) [Vol rate/Area] 98 mL/min/{1.73_m2} Normal >60 [facility] Comment on above: Result Comment: mL/m in/1.73m2 CKD-EPI Creatinine Equation (2020) Performed By: #### L 501.2300, L501.5200, L100.0100, L500.4050 ####[facility] [address] [place], [address] Globulin (S) [Mass/Vol] 3.0 g/dL Normal 2.2-4.2 [facility] Comment on above: Performed By: #### L 501.2300, L501.5200, L100.0100, L500.4050 ####[facility] [address] [place], [address] Glucose [Mass/Vol] 203 mg/dL High 70-99 [facility] Comment on above: Performed By: #### L 501.2300, L501.5200, L100.0100, L500.4050 ####[facility] [address] [place], [address] Potassium [Moles/Vol] 4.1 mmol/L Normal 3.3-5.1 [facility] Comment on above: Performed By: #### L 501.2300, L501.5200, L100.0100, L500.4050 ####[facility] [address] [place], [address] Sodium [Moles/Vol] 131 mmol/L Low 133-145 [facility] Comment on above: Performed By: #### L 501.2300, L501.5200, L100.0100, L500.4050 ####[facility] [address] [place], [address] T PROT 5.6 g/dL Low 5.9-8.4 [facility] Comment on above: Performed By: #### L 501.2300, L501.5200, L100.0100, L500.4050 ####[facility] [address] [place], [address] Urea nitrogen [Mass/Vol] 15 mg/dL Normal 4-19 [facility] Comment on above: Performed By: #### L 501.2300, L501.5200, L100.0100, L500.4050 ####[facility] [address] [place], [address] Eosinophil percentageOrdered By: Katie Olvin on 02-22-2025 Eosinophils/100 WBC (Bld) 3.0 % 0-5 [facility] Erythrocyte distribution wid th ratioOrdered By: Katie Olvin on 02-22-2025 Erythrocyte distribution width (RBC) [Ratio] 15.4 % High 11.6-14.6 [facility] Erythrocyte distribution wid th standard deviationOrdered By: Katie Bah on 02-22-2025 Erythrocyte distribution width (RBC) [Ratio] 49.5 fl High 35.1-43.9 [facility] Ferritinon 02-22-2025 Ferritin [Mass/Vol] 217 ng/mL Normal 22-378 [facility] Comment on above: Performed By: #### L 503.6030, L503.6550 ####[facility] [address] [place], [address] Immature granulocytes/100 WB C Auto (Bld)Ordered By: Katie Bah on 02-22-2025 Immature granulocytes/100 WBC (Bld) 0.700 % 0.0-0.9 [facility] Comment on above: IG% - Immature Granu locytes (promyelocytes, myelocytes and metamyelocytes) > 1% indicates that a LEFT SHIFT is Present. Iron measurement (mass/mass) Ordered By: Katie Bah on 02-22-2025 Iron (Unsp spec) [Mass/Mass] 69 ug/dL 50-170 [facility] Iron+Iron Binding Capacityon 02-22-2025 TIBC 197 ug/dL Low 250-450 [facility] Comment on above: Performed By: #### L 503.6030, L503.6550 ####[facility] [address] [place], [place], [address] Laboratory - Chemistry and C hemistry - challengeOrdered By: Katie Olvin on 02-22-2025 AST [Catalytic activity/Vol] 31 U/L <32 [facility] MCV (mean corpuscular volume ) determinationOrdered By: Katie Olvin on 02-22-2025 MCV (RBC) [Entitic vol] 89.3 fL 81-99 [facility] Magnesiumon 02-22-2025 Magnesium [Mass/Vol] 1.5 mg/dL Normal 1.5-2.2 [facility] Comment on above: Performed By: #### L 501.2300, L501.5200, L100.0100, L500.4050 ####[facility] [address] [place], [address] Mean corpuscular hemoglobin (MCH) determinationOrdered By: Katie Bah on 02-22-2025 MCH (RBC) [Entitic mass] 31.5 pg 27.0-32.0 [facility] Mean corpuscular hemoglobin concentration (MCHC) determinationOrdered By: Katie Bah on 02-22-2025 MCHC (RBC) [Mass/Vol] 35.3 g/dL 32-36 [facility] Mean platelet volume determi nationOrdered By: Katie Bah on 02-22-2025 Platelet mean volume (Bld) [Entitic vol] 8.8 fL 6.2-12.0 [facility] Monocyte percentageOrdered B y: Katie Bah on 02-22-2025 Monocytes/100 WBC (Bld) 7.2 % 0-10 [facility] Neutrophil percentageOrdered By: Katie Bah on 02-22-2025 Neutrophils/100 WBC (Bld) 65.0 % 47-70 [facility] No Panel InformationOrdered By: Katie Bah on 02-22-2025 Unsaturated Iron Binding Capacity 128 ug/dL Low 228-428 [facility] Nucleated red blood cell per centageOrdered By: Katie Bah on 02-22-2025 Nucleated RBC/100 WBC (Bld) [Ratio] 0 % 0-5 [facility] Osmolality urOrdered By: oJya Kimjaquan on 02-22-2025 Osmolality (U) [Osmolality] 176 mOsm/KG >50 [facility] Comment on above: Normal Urine Referen ce Ranges Random: 50 - 1200 mOsm/kg H20 depending on fluid intake Random: >850 mOsm/kg after 12 hour fluid restriction 24 hour: ~300 - 900 mOsm/kg H2O Osmolality, Serumon 02-23-20 25 OSMOLALITY,SER 283 mOsm/KG Normal 280-301 [facility] Comment on above: Performed By: #### L 501.7300 ####[facility] [address] [place], [address] Osmolality, Urineon 02-23-20 25 OSMOLALITY,UR 176 mOsm/KG Normal [facility] Comment on above: Result Comment: Norm al Urine Reference Ranges Random: 50 - 1200 mOsm/kg H20 depending on fluid intake Random: >850 mOsm/kg after 12 hour fluid restriction 24 hour: 300 - 900 mOsm/kg H2O Performed By: #### L 501.7400, L501.5500 ####[facility] [address] [place], [address] Phosphoruson 02-22-2025 Phosphate [Mass/Vol] 3.2 mg/dL Normal 2.7-4.5 [facility] Comment on above: Performed By: #### L 501.2300, L501.5200, L100.0100, L500.4050 ####[facility] [address] [place], [address] Platelet countOrdered By: Shahida Bah on 02-22-2025 Platelets (Bld) [#/Vol] 282 10*3/uL 150-450 [facility] RBC Auto (Bld) [#/Vol]Ordere d By: Katie Bah on 02-22-2025 RBC (Bld) [#/Vol] 2.70 10*6/uL Low 4.2-5.4 [facility] Serum globulin measurementOr dered By: Katie Bah on 02-22-2025 Globulin (S) [Mass/Vol] 3.0 g/dL 2.2-4.2 [facility] Serum or plasma alanine cornejo otransferase (ALT) measurementOrdered By: Katie Olvin on 02-22-2025 ALT [Catalytic activity/Vol] U/L <35 [facility] Serum or plasma albumin sabino urement (mass/volume)Ordered By: Katie Kimjaquan on 02-22-2025 Albumin [Mass/Vol] 2.6 g/dL Low 3.4-4.8 [facility] Serum or plasma albumin/glob ulin mass ratioOrdered By: Katie Olvin on 02-22-2025 Albumin/Globulin [Mass ratio] 0.9 {ratio} 0.9-2.4 [facility] Serum or plasma alkaline shaista sphatase measurementOrdered By: Katie Kimjaquan on 02-22-2025 ALP [Catalytic activity/Vol] 106 U/L High 35-104 [facility] Serum or plasma ferritin uzma surement (mass/volume)Ordered By: Katie Olvin on 02-22-2025 Ferritin [Mass/Vol] 217 ng/mL 22-378 [facility] Serum or plasma iron saturat ion measurement (mass fraction)Ordered By: Kaite Olvin on 02-22-2025 Iron saturation [Mass fraction] 35.0 % 13-59 [facility] Stool Occult Blood iFOBon STOB Positive Normal [facility] Comment on above: Performed By: #### M 100.7900 ####[facility] [address] [place], [place], [id number] Stool gastrointestinal hemog lobin detection by immunologic methodOrdered By: Katie Olvin on 02-22-2025 Lower GI hemoglobin IA Ql (Stl) Positive Abnormal [facility] Total proteinOrdered By: Joya sultana Olvin on 02-22-2025 Protein [Mass/Vol] 5.6 g/dL Low 5.9-8.4 [facility] Urinalysis, Completeon 02-22 Mucus Ql (Urine sed) 0 SEEN Normal [facility] Comment on above: Order Comment: CLEAN CATCH Performed By: #### L 400.0001 ####[facility] [address] [place], [address] Urine Sodiumon 02-22-2025 UR NA < 20 Normal Not Establ. [facility] Comment on above: Performed By: #### L 501.7400, L501.5500 ####[facility] [address] [place], [address] Urine sodium measurement (mo les/volume)Ordered By: Katie Kimjaquan on 02-22-2025 Sodium (U) [Moles/Vol] mmol/L Not Establ. [facility] White blood cell (WBC) count Ordered By: Katie Kimjaquan on 02-22-2025 WBC (Bld) [#/Vol] 8.2 10*3/uL 4.4-11.0 [facility] Bedside Glucoseon 02-21-2025 FINGERSTICK GLU 192 mg/dL High -[address] [place] [address] Comment on above: Result Comment: MARINA GEMENT OF PATIENT CARE PER NURSING PROTOCOL Performed By: #### L 501.080 ####[facility] [address] [place], [address] FINGERSTICK GLU 242 mg/dL High [address] [place] [address] Comment on above: Result Comment: MARINA GEMENT OF PATIENT CARE PER NURSING PROTOCOL Performed By: #### L 501.080 ####[facility] [address] [place], [address] FINGERSTICK GLU 245 mg/dL High [address] [place] [address] Comment on above: Result Comment: MARINA GEMENT OF PATIENT CARE PER NURSING PROTOCOL Performed By: #### L 501.080 ####[facility] [address] [place], [address] FINGERSTICK GLU 212 mg/dL High [facility]106 [facility] Comment on above: Result Comment: MARINA GEMENT OF PATIENT CARE PER NURSING PROTOCOL Performed By: #### L 501.080 ####[facility] [address] [place], [address] Glucose measurement at bedsi deOrdered By: Gia Owusu on 02-21-2025 Glucose [Mass/Vol] 245 mg/dL High 74-106 [facility] Comment on above: MANAGEMENT OF PATIEN T CARE PER NURSING PROTOCOL Hemoglobinon 02-21-2025 Hemoglobin (Bld) [Mass/Vol] 8.6 g/dL Low 12.0-15.0 [facility] Comment on above: Performed By: #### L 100.1300 ####[facility] [address] [place], [address] Hemoglobin measurementOrdere d By: Gia Owusu on 02-21-2025 Hemoglobin (Bld) [Mass/Vol] 8.6 g/dL Low 12.0-15.0 [facility] Bedside Glucoseon 02-20-2025 FINGERSTICK GLU 209 mg/dL High 74-106 [facility] Comment on above: Result Comment: MARINA GEMENT OF PATIENT CARE PER NURSING PROTOCOL Performed By: #### L 501.080 ####[facility] [address] [place], [address] FINGERSTICK GLU 180 mg/dL High 74-106 [facility] Comment on above: Result Comment: MARINA GEMENT OF PATIENT CARE PER NURSING PROTOCOL Performed By: #### L 501.080 ####[facility] [address] [place], [address] FINGERSTICK GLU 287 mg/dL High -106 [facility] Comment on above: Result Comment: MARINA GEMENT OF PATIENT CARE PER NURSING PROTOCOL Performed By: #### L 501.080 ####[facility] [address] [place], [address] FINGERSTICK GLU 161 mg/dL High -106 [facility] Comment on above: Result Comment: MARINA GEMENT OF PATIENT CARE PER NURSING PROTOCOL Performed By: #### L 501.080 ####[facility] [address] [place], [address] Hemoglobinon 02-20-2025 Hemoglobin (Bld) [Mass/Vol] 8.9 g/dL Low 12.0-15.0 [facility] Comment on above: Performed By: #### L 100.1300 ####[facility] [address] [place], [address] Hemoglobin (Bld) [Mass/Vol] 8.6 g/dL Low 12.0-15.0 [facility] Comment on above: Performed By: #### L 100.1300 ####[facility] [address] [place], [address] Anion gap in Serum or Plasma Ordered By: Gia Owusu on 02-19-2025 Anion gap [Moles/Vol] 10 mmol/L - [facility] BUN/creatinine ratioOrdered By: Gia Owusu on 02-19-2025 Urea nitrogen/Creatinine [Mass ratio] 23.4 mg/mg High 06-11 [facility] Basic Metabolic Profile (BMP )on 02-19-2025 BUN/CRE 23.4 RATIO High - [facility] Comment on above: Performed By: #### L 500.2500, L100.0500 ####[facility] [address] [place], [address] Calcium [Mass/Vol] 8.4 mg/dL Normal 7.6-11.0 [facility] Comment on above: Performed By: #### L 500.2500, L100.0500 ####[facility] [address] [place], [address] Chloride [Moles/Vol] 103 mmol/L Normal 98-108 [facility] Comment on above: Performed By: #### L 500.2500, L100.0500 ####[facility] [address] [place], [address] CO2 [Moles/Vol] 21.3 mmol/L Normal 21.0-32.0 [facility] Comment on above: Performed By: #### L 500.2500, L100.0500 ####[facility] [address] [place], [address] Creatinine [Mass/Vol] 0.51 mg/dL Low 0.70-1.20 [facility] Comment on above: Performed By: #### L 500.2500, L100.0500 ####[facility] [address] [place], [address] ECRCL 44.44 ml/min Low 50-250 [facility] Comment on above: Performed By: #### L 500.2500, L100.0500 ####[facility] [address] [place], [address] GAP 10 Normal 5-15 [facility] Comment on above: Performed By: #### L 500.2500, L100.0500 ####[facility] [address] [place], [address] GFR/1.73 sq M.predicted among non-blacks MDRD (S/P/Bld) [Vol rate/Area] 96 mL/min/{1.73_m2} Normal >60 [facility] Comment on above: Result Comment: mL/m in/1.73m2 CKD-EPI Creatinine Equation (2020) Performed By: #### L 500.2500, L100.0500 ####[facility] [address] [place], [address] Glucose [Mass/Vol] 165 mg/dL High 70-99 [facility] Comment on above: Performed By: #### L 500.2500, L100.0500 ####[facility] [address] [place], [address] Potassium [Moles/Vol] 3.7 mmol/L Normal 3.3-5.1 [facility] Comment on above: Result Comment: Hemo lysis present, Results??could be affected.?? Performed By: #### L 500.2500, L100.0500 ####[facility] [address] [place], [address] Sodium [Moles/Vol] 134 mmol/L Normal 133-145 [facility] Comment on above: Performed By: #### L 500.2500, L100.0500 ####[facility] [address] [place], [address] Urea nitrogen [Mass/Vol] 12 mg/dL Normal 4-19 [facility] Comment on above: Performed By: #### L 500.2500, L100.0500 ####[facility] [address] [place], [address] Bedside Glucoseon 02-19-2025 FINGERSTICK GLU 202 mg/dL High 74-106 [facility] Comment on above: Result Comment: MARINA GEMENT OF PATIENT CARE PER NURSING PROTOCOL Performed By: #### L 501.080 ####[facility] [address] [place], [address] FINGERSTICK GLU 179 mg/dL High 74-106 [facility] Comment on above: Result Comment: MARINA GEMENT OF PATIENT CARE PER NURSING PROTOCOL Performed By: #### L 501.080 ####[facility] [address] [place], [address] FINGERSTICK GLU 276 mg/dL High 74-106 [facility] Comment on above: Result Comment: MARINA GEMENT OF PATIENT CARE PER NURSING PROTOCOL Performed By: #### L 501.080 ####[facility] [address] [place], [address] FINGERSTICK GLU 162 mg/dL High 74-106 [facility] Comment on above: Result Comment: MARINA GEMENT OF PATIENT CARE PER NURSING PROTOCOL Performed By: #### L 501.080 ####[facility] [address] [place], [address] CBC-Complete Blood Cnt No Di ffon 02-19-2025 Erythrocyte distribution width (RBC) [Ratio] 15.2 % High 11.6-14.6 [facility] Comment on above: Performed By: #### L 500.2500, L100.0500 ####[facility] [address] [place], [address] Hematocrit (Bld) [Volume fraction] 26.2 % Low 37-47 [facility] Comment on above: Performed By: #### L 500.2500, L100.0500 ####[facility] [address] [place], [address] Hemoglobin (Bld) [Mass/Vol] 9.1 g/dL Low 12.0-15.0 [facility] Comment on above: Performed By: #### L 500.2500, L100.0500 ####[facility] [address] [place], [address] MCH (RBC) [Entitic mass] 30.8 pg Normal 27.0-32.0 [facility] Comment on above: Performed By: #### L 500.2500, L100.0500 ####[facility] [address] [place], [address] MCHC (RBC) [Mass/Vol] 34.7 g/dL Normal 32-36 [facility] Comment on above: Performed By: #### L 500.2500, L100.0500 ####[facility] [address] [place], [address] MCV (RBC) [Entitic vol] 88.8 fL Normal 81-99 [facility] Comment on above: Performed By: #### L 500.2500, L100.0500 ####[facility] [address] [place], [address] Platelet mean volume (Bld) [Entitic vol] 9.6 fL Normal 6.2-12.0 [facility] Comment on above: Performed By: #### L 500.2500, L100.0500 ####[facility] [address] [place], [address] Platelets (Bld) [#/Vol] 262 10*3/uL Normal 150-450 [facility] Comment on above: Performed By: #### L 500.2500, L100.0500 ####[facility] [address] [place], [address] RBC (Bld) [#/Vol] 2.95 10*6/uL Low 4.2-5.4 [facility] Comment on above: Performed By: #### L 500.2500, L100.0500 ####[facility] [address] [place], [address] RDW SD 47.0 fl High 35.1-43.9 [facility] Comment on above: Performed By: #### L 500.2500, L100.0500 ####[facility] [address] [place], [address] WBC (Bld) [#/Vol] 10.0 10*3/uL Normal 4.4-11.0 [facility] Comment on above: Performed By: #### L 500.2500, L100.0500 ####[facility] [address] [place], [address] Carbon dioxide, total [Moles /volume] in Central venous bloodOrdered By: Gia Owusu on 02-19-2025 CO2 [Moles/Vol] 21.3 mmol/L 21.0-32.0 [facility] Chloride assayOrdered By: Ahsan Owusu on 02-19-2025 Chloride [Moles/Vol] 103 mmol/L 98-108 [facility] Erythrocyte distribution wid th ratioOrdered By: Gia Owusu on 02-19-2025 Erythrocyte distribution width (RBC) [Ratio] 15.2 % High 11.6-14.6 [facility] Erythrocyte distribution wid th standard deviationOrdered By: Gia Owusu on 02-19-2025 Erythrocyte distribution width (RBC) [Ratio] 47.0 fl High 35.1-43.9 [facility] Glomerular filtration rate ( GFR) estimation/1.73 sq m using serum, plasma, or whole bOrdered By: Gia Owusu on 02-19-2025 GFR/1.73 sq M.predicted among non-blacks MDRD (S/P/Bld) [Vol rate/Area] 96 mL/min/{1.73_m2} >60 [facility] Comment on above: mL/min/1.73m2 CKD-EP I Creatinine Equation (2020) Hematocrit Auto (Bld) [Volum e fraction]Ordered By: Gia Owusu on 02-19-2025 Hematocrit (Bld) [Volume fraction] 26.2 % Low 37-47 [facility] MCV (mean corpuscular volume ) determinationOrdered By: Gia Owusu on 02-19-2025 MCV (RBC) [Entitic vol] 88.8 fL 81-99 [facility] MR/[id number] 02-19-2025 MR/POSTOPAN2 Normal [facility] Mean corpuscular hemoglobin (MCH) determinationOrdered By: Gia Owusu on 02-19-2025 MCH (RBC) [Entitic mass] 30.8 pg 27.0-32.0 [facility] Mean corpuscular hemoglobin concentration (MCHC) determinationOrdered By: Gia Owusu on 02-19-2025 MCHC (RBC) [Mass/Vol] 34.7 g/dL 32-36 [facility] Mean platelet volume determi nationOrdered By: Gia Owusu on 02-19-2025 Platelet mean volume (Bld) [Entitic vol] 9.6 fL 6.2-12.0 [facility] Platelet countOrdered By: Ahsan Owusu on 02-19-2025 Platelets (Bld) [#/Vol] 262 10*3/uL 150-450 [facility] Potassium measurement (mass/ volume)Ordered By: Gia Owusu on 02-19-2025 Potassium (Unsp spec) [Mass/Vol] 3.7 mmol/L 3.3-5.1 [facility] Comment on above: Hemolysis present, R esults could be affected. RBC Auto (Bld) [#/Vol]Ordere d By: Gia Owusu on 02-19-2025 RBC (Bld) [#/Vol] 2.95 10*6/uL Low 4.2-5.4 [facility] Serum creatinine measurement (mass/volume)Ordered By: Gia Owusu on 02-19-2025 Creatinine [Mass/Vol] 0.51 mg/dL Low 0.70-1.20 [facility] Serum glucose measurement (m ass/volume)Ordered By: Gia Owusu on 02-19-2025 Glucose [Mass/Vol] 165 mg/dL High 70-99 [facility] Serum or plasma calcium sabino urement (mass/volume)Ordered By: Gia Owusu on 02-19-2025 Calcium [Mass/Vol] 8.4 mg/dL 7.6-11.0 [facility] Serum or plasma urea nitroge n measurement (mass/volume)Ordered By: Gia Owusu on 02-19-2025 Urea nitrogen [Mass/Vol] 12 mg/dL 4-19 [facility] Sodium levelOrdered By: Delmy Owusu on 02-19-2025 Sodium [Moles/Vol] 134 mmol/L 133-145 [facility] White blood cell (WBC) count Ordered By: Gia Owusu on 02-19-2025 WBC (Bld) [#/Vol] 10.0 10*3/uL 4.4-11.0 [facility] Absolute lymphocyte countOrd ered By: Gia Owusu on 02-18-2025 Lymphocytes Auto (Unsp spec) [#/Vol] 2.07 10*3/uL 0.83-4.51 [facility] Absolute neutrophil countOrd ered By: Gia Owusu on 02-18-2025 Neutrophils (Bld) [#/Vol] 5.8 10*3/uL 2.0-7.7 [facility] Automated lymphocyte count a s percentage of total leukocytesOrdered By: Gia Owusu on 02-18-2025 Lymphocytes/100 WBC Auto (Unsp spec) 22.6 % 19-41 [facility] Basophil percentageOrdered B y: Gia Owusu on 02-18-2025 Basophils/100 WBC (Bld) 0.4 % 0-1 [facility] Bedside Glucoseon 02-18-2025 FINGERSTICK GLU 196 mg/dL High 74-106 [facility] Comment on above: Result Comment: MARINA GEMENT OF PATIENT CARE PER NURSING PROTOCOL Performed By: #### L 501.080 ####[facility] [address] [place], [address] FINGERSTICK GLU 187 mg/dL High -106 [facility] Comment on above: Result Comment: MARINA GEMENT OF PATIENT CARE PER NURSING PROTOCOL Performed By: #### L 501.080 ####[facility] [address] [place], [address] FINGERSTICK GLU 285 mg/dL High -[address] [place] [address] Comment on above: Result Comment: MARINA GEMENT OF PATIENT CARE PER NURSING PROTOCOL Performed By: #### L 501.080 ####[facility] [address] [place], [address] FINGERSTICK GLU 188 mg/dL High [address] [place] [address] Comment on above: Result Comment: MARINA GEMENT OF PATIENT CARE PER NURSING PROTOCOL Performed By: #### L 501.080 ####[facility] [address] [place], [address] CBC W/Diff, Automatedon 06- Absolute Lymph 2.07 X10 3/uL Normal 0.83-4.51 [facility] Comment on above: Performed By: #### L 100.0100 ####[facility] [address] [place], [address] Absolute Neut 5.8 X10 3/uL Normal 2.0-7.7 [facility] Comment on above: Performed By: #### L 100.0100 ####[facility] [address] [place], [address] Basophils/100 WBC (Bld) 0.4 % Normal 0-1 [facility] Comment on above: Performed By: #### L 100.0100 ####[facility] [address] [place], [address] Eosinophils/100 WBC (Bld) 2.4 % Normal 0-5 [facility] Comment on above: Performed By: #### L 100.0100 ####[facility] [address] [place], [address] Erythrocyte distribution width (RBC) [Ratio] 15.3 % High 11.6-14.6 [facility] Comment on above: Performed By: #### L 100.0100 ####[facility] [address] [place], [address] Hematocrit (Bld) [Volume fraction] 26.8 % Low 37-47 [facility] Comment on above: Performed By: #### L 100.0100 ####[facility] [address] [place], [address] Hemoglobin (Bld) [Mass/Vol] 9.6 g/dL Low 12.0-15.0 [facility] Comment on above: Performed By: #### L 100.0100 ####[facility] [address] [place], [address] IG% 0.500 Normal 0.0-0.9 [facility] Comment on above: Result Comment: IG% - Immature Granulocytes (promyelocytes, myelocytes andmetamyelocytes) > 1% indicates that a LEFT SHIFT is Present. Performed By: #### L 100.0100 ####[facility] [address] [place], [address] Lymphocytes/100 WBC (Bld) 22.6 % Normal 19-41 [facility] Comment on above: Performed By: #### L 100.0100 ####[facility] [address] [place], [address] MCH (RBC) [Entitic mass] 31.1 pg Normal 27.0-32.0 [facility] Comment on above: Performed By: #### L 100.0100 ####[facility] [address] [place], [address] MCHC (RBC) [Mass/Vol] 35.8 g/dL Normal 32-36 [facility] Comment on above: Performed By: #### L 100.0100 ####[facility] [address] [place], [address] MCV (RBC) [Entitic vol] 86.7 fL Normal 81-99 [facility] Comment on above: Performed By: #### L 100.0100 ####[facility] [address] [place], [address] Monocytes/100 WBC (Bld) 10.4 % High 0-10 [facility] Comment on above: Performed By: #### L 100.0100 ####[facility] [address] [place], [address] Neutrophils/100 WBC (Bld) 63.7 % Normal 47-70 [facility] Comment on above: Performed By: #### L 100.0100 ####[facility] [address] [place], [address] Nucleated RBC (Bld) [#/Vol] 0 10*3/uL Normal 0-5 [facility] Comment on above: Performed By: #### L 100.0100 ####[facility] [address] [place], [address] Platelet mean volume (Bld) [Entitic vol] 9.4 fL Normal 6.2-12.0 [facility] Comment on above: Performed By: #### L 100.0100 ####[facility] [address] [place], [address] Platelets (Bld) [#/Vol] 247 10*3/uL Normal 150-450 [facility] Comment on above: Performed By: #### L 100.0100 ####[facility] [address] [place], [address] RBC (Bld) [#/Vol] 3.09 10*6/uL Low 4.2-5.4 [facility] Comment on above: Performed By: #### L 100.0100 ####[facility] [address] [place], [address] RDW SD 45.9 fl High 35.1-43.9 [facility] Comment on above: Performed By: #### L 100.0100 ####[facility] [address] [place], [address] WBC (Bld) [#/Vol] 9.2 10*3/uL Normal 4.4-11.0 [facility] Comment on above: Performed By: #### L 100.0100 ####[facility] [address] [place], [address] Eosinophil percentageOrdered By: Gia Owusu on 02-18-2025 Eosinophils/100 WBC (Bld) 2.4 % 0-5 [facility] Immature granulocytes/100 WB C Auto (Bld)Ordered By: Gia Owusu on 02-18-2025 Immature granulocytes/100 WBC (Bld) 0.500 % 0.0-0.9 [facility] Comment on above: IG% - Immature Granu locytes (promyelocytes, myelocytes and metamyelocytes) > 1% indicates that a LEFT SHIFT is Present. Monocyte percentageOrdered B y: Gia Owusu on 02-18-2025 Monocytes/100 WBC (Bld) 10.4 % High 0-10 [facility] Neutrophil percentageOrdered By: Gia Owusu on 02-18-2025 Neutrophils/100 WBC (Bld) 63.7 % 47-70 [facility] Nucleated red blood cell per centageOrdered By: Gia Owusu on 02-18-2025 Nucleated RBC/100 WBC (Bld) [Ratio] 0 % 0-5 [facility] Basic Metabolic Profile (BMP )on 02-17-2025 BUN/CRE 28.5 RATIO High 10-20 [facility] Comment on above: Performed By: #### L 100.0100, L500.2500 ####[facility] [address] [place], [address] Calcium [Mass/Vol] 8.3 mg/dL Normal 7.6-11.0 [facility] Comment on above: Performed By: #### L 100.0100, L500.2500 ####[facility] [address] [place], [address] Chloride [Moles/Vol] 105 mmol/L Normal 98-108 [facility] Comment on above: Performed By: #### L 100.0100, L500.2500 ####[facility] [address] [place], [address] CO2 [Moles/Vol] 20.2 mmol/L Low 21.0-32.0 [facility] Comment on above: Performed By: #### L 100.0100, L500.2500 ####[facility] [address] [place], [address] Creatinine [Mass/Vol] 0.61 mg/dL Low 0.70-1.20 [facility] Comment on above: Performed By: #### L 100.0100, L500.2500 ####[facility] [address] [place], [address] ECRCL 44.44 ml/min Low 50-250 [facility] Comment on above: Performed By: #### L 100.0100, L500.2500 ####[facility] [address] [place], [address] GAP 11 Normal 5-15 [facility] Comment on above: Performed By: #### L 100.0100, L500.2500 ####[facility] [address] [place], [address] GFR/1.73 sq M.predicted among non-blacks MDRD (S/P/Bld) [Vol rate/Area] 92 mL/min/{1.73_m2} Normal >60 [facility] Comment on above: Result Comment: mL/m in/1.73m2 CKD-EPI Creatinine Equation (2020) Performed By: #### L 100.0100, L500.2500 ####[facility] [address] [place], [address] Glucose [Mass/Vol] 157 mg/dL High 70-99 [facility] Comment on above: Performed By: #### L 100.0100, L500.2500 ####[facility] [address] [place], [address] Potassium [Moles/Vol] 4.0 mmol/L Normal 3.3-5.1 [facility] Comment on above: Performed By: #### L 100.0100, L500.2500 ####[facility] [address] [place], [address] Sodium [Moles/Vol] 136 mmol/L Normal 133-145 [facility] Comment on above: Performed By: #### L 100.0100, L500.2500 ####[facility] [address] [place], [address] Urea nitrogen [Mass/Vol] 17 mg/dL Normal 4-19 [facility] Comment on above: Performed By: #### L 100.0100, L500.2500 ####[facility] [address] [place], [address] Bedside Glucoseon 02-17-2025 FINGERSTICK GLU 246 mg/dL High 74-106 [facility] Comment on above: Result Comment: MARINA FERNANDEZ OF PATIENT CARE PER NURSING PROTOCOL Performed By: #### L 501.080 ####[facility] [address] [place], [address] FINGERSTICK GLU 192 mg/dL High 74-106 [facility] Comment on above: Result Comment: MARINA GEMENT OF PATIENT CARE PER NURSING PROTOCOL Performed By: #### L 501.080 ####[facility] [address] [place], [address] FINGERSTICK GLU 238 mg/dL High 74-106 [facility] Comment on above: Result Comment: MARINA GEMENT OF PATIENT CARE PER NURSING PROTOCOL Performed By: #### L 501.080 ####[facility] [address] [place], [address] FINGERSTICK GLU 159 mg/dL High 74-106 [facility] Comment on above: Result Comment: MARINA GEMENT OF PATIENT CARE PER NURSING PROTOCOL Performed By: #### L 501.080 ####[facility] [address] [place], [address] CBC W/Diff, Automatedon 06-2 8-2024 Absolute Lymph 2.20 X10 3/uL Normal 0.83-4.51 [facility] Comment on above: Performed By: #### L 100.0100, L500.2500 ####[facility] [address] [place], [address] Absolute Neut 6.7 X10 3/uL Normal 2.0-7.7 [facility] Comment on above: Performed By: #### L 100.0100, L500.2500 ####[facility] [address] [place], [address] Basophils/100 WBC (Bld) 0.2 % Normal 0-1 [facility] Comment on above: Performed By: #### L 100.0100, L500.2500 ####[facility] [address] [place], [address] Eosinophils/100 WBC (Bld) 0.3 % Normal 0-5 [facility] Comment on above: Performed By: #### L 100.0100, L500.2500 ####[facility] [address] [place], [address] Erythrocyte distribution width (RBC) [Ratio] 14.6 % Normal 11.6-14.6 [facility] Comment on above: Performed By: #### L 100.0100, L500.2500 ####[facility] [address] [place], [address] Hematocrit (Bld) [Volume fraction] 27.0 % Low 37-47 [facility] Comment on above: Performed By: #### L 100.0100, L500.2500 ####[facility] [address] [place], [address] Hemoglobin (Bld) [Mass/Vol] 9.9 g/dL Low 12.0-15.0 [facility] Comment on above: Performed By: #### L 100.0100, L500.2500 ####[facility] [address] [place], [address] IG% 0.600 Normal 0.0-0.9 [facility] Comment on above: Result Comment: IG% - Immature Granulocytes (promyelocytes, myelocytes andmetamyelocytes) > 1% indicates that a LEFT SHIFT is Present. Performed By: #### L 100.0100, L500.2500 ####[facility] [address] [place], [address] Lymphocytes/100 WBC (Bld) 22.0 % Normal 19-41 [facility] Comment on above: Performed By: #### L 100.0100, L500.2500 ####[facility] [address] [place], [address] MCH (RBC) [Entitic mass] 31.2 pg Normal 27.0-32.0 [facility] Comment on above: Performed By: #### L 100.0100, L500.2500 ####[facility] [address] [place], [address] MCHC (RBC) [Mass/Vol] 36.7 g/dL High 32-36 [facility] Comment on above: Performed By: #### L 100.0100, L500.2500 ####[facility] [address] [place], [address] MCV (RBC) [Entitic vol] 85.2 fL Normal 81-99 [facility] Comment on above: Performed By: #### L 100.0100, L500.2500 ####[facility] [address] [place], [address] Monocytes/100 WBC (Bld) 10.3 % High 0-10 [facility] Comment on above: Performed By: #### L 100.0100, L500.2500 ####[facility] [address] [place], [address] Neutrophils/100 WBC (Bld) 66.6 % Normal 47-70 [facility] Comment on above: Performed By: #### L 100.0100, L500.2500 ####[facility] [address] [place], [address] Nucleated RBC (Bld) [#/Vol] 0 10*3/uL Normal 0-5 [facility] Comment on above: Performed By: #### L 100.0100, L500.2500 ####[facility] [address] [place], [address] Platelet mean volume (Bld) [Entitic vol] 9.4 fL Normal 6.2-12.0 [facility] Comment on above: Performed By: #### L 100.0100, L500.2500 ####[facility] [address] [place], [address] Platelets (Bld) [#/Vol] 247 10*3/uL Normal 150-450 [facility] Comment on above: Performed By: #### L 100.0100, L500.2500 ####[facility] [address] [place], [address] RBC (Bld) [#/Vol] 3.17 10*6/uL Low 4.2-5.4 [facility] Comment on above: Performed By: #### L 100.0100, L500.2500 ####[facility] [address] [place], [address] RDW SD 44.0 fl High 35.1-43.9 [facility] Comment on above: Performed By: #### L 100.0100, L500.2500 ####[facility] [address] [place], [address] WBC (Bld) [#/Vol] 10.0 10*3/uL Normal 4.4-11.0 [facility] Comment on above: Performed By: #### L 100.0100, L500.2500 ####[facility] [address] [place], [address] Haptoglobinon 02-17-2025 HAPTOGLOBIN 91 mg/dL Normal 42-346 [facility] Comment on above: Result Comment: Perf ormed at: - [facility] [address] [id number] Director: Danielito العلي PhD, Phone: [phone] Performed By: #### L 3100.6250, X079.0165, X724.4915 ####[facility] [address] [place], [address] Activated partial thrombopla stin time (aPTT) in platelet poor plasma by coagulation aOrdered By: Bi Zaman on 02-16-2025 aPTT Coag (PPP) [Time] 31.5 s 24.1-36.2 [facility] Bedside Glucoseon 02-16-2025 FINGERSTICK GLU 250 mg/dL High 74-106 [facility] Comment on above: Result Comment: MARINA GEMENT OF PATIENT CARE PER NURSING PROTOCOL Performed By: #### L 501.080 ####[facility] [address] [place], [address] FINGERSTICK GLU 245 mg/dL High 74-106 [facility] Comment on above: Result Comment: MARINA GEMENT OF PATIENT CARE PER NURSING PROTOCOL Performed By: #### L 501.080 ####[facility] [address] [place], [address] FINGERSTICK GLU 151 mg/dL High 74-106 [facility] Comment on above: Result Comment: MARINA GEMENT OF PATIENT CARE PER NURSING PROTOCOL Performed By: #### L 501.080 ####[facility] [address] [place], [address] Bilirubin, totalOrdered By: Lakeshia Mas on 02-16-2025 Bilirubin [Mass/Vol] 1.96 mg/dL High 0.00-1.30 [facility] CBC W/Diff, Automatedon 01-22 Absolute Lymph 2.62 X10 3/uL Normal 0.83-4.51 [facility] Comment on above: Performed By: #### L 300.4310, L100.0100, L501.9520, L501.9985, L500.4050, L300.3900 ####[facility] [address] [place], [address] Absolute Neut 5.8 X10 3/uL Normal 2.0-7.7 [facility] Comment on above: Performed By: #### L 300.4310, L100.0100, L501.9520, L501.9985, L500.4050, L300.3900 ####[facility] [address] [place], [address] Basophils/100 WBC (Bld) 0.5 % Normal 0-1 [facility] Comment on above: Performed By: #### L 300.4310, L100.0100, L501.9520, L501.9985, L500.4050, L300.3900 ####[facility] [address] [place], [address] Eosinophils/100 WBC (Bld) 1.9 % Normal 0-5 [facility] Comment on above: Performed By: #### L 300.4310, L100.0100, L501.9520, L501.9985, L500.4050, L300.3900 ####[facility] [address] [place], [address] Erythrocyte distribution width (RBC) [Ratio] 14.4 % Normal 11.6-14.6 [facility] Comment on above: Performed By: #### L 300.4310, L100.0100, L501.9520, L501.9985, L500.4050, L300.3900 ####[facility] [address] [place], [address] Hematocrit (Bld) [Volume fraction] 24.1 % Low 37-47 [facility] Comment on above: Performed By: #### L 300.4310, L100.0100, L501.9520, L501.9985, L500.4050, L300.3900 ####[facility] [address] [place], [address] Hemoglobin (Bld) [Mass/Vol] 8.7 g/dL Low 12.0-15.0 [facility] Comment on above: Performed By: #### L 300.4310, L100.0100, L501.9520, L501.9985, L500.4050, L300.3900 ####[facility] [address] [place], [address] IG% 0.400 Normal 0.0-0.9 [facility] Comment on above: Result Comment: IG% - Immature Granulocytes (promyelocytes, myelocytes andmetamyelocytes) > 1% indicates that a LEFT SHIFT is Present. Performed By: #### L 300.4310, L100.0100, L501.9520, L501.9985, L500.4050, L300.3900 ####[facility] [address] [place], [address] Lymphocytes/100 WBC (Bld) 27.3 % Normal 19-41 [facility] Comment on above: Performed By: #### L 300.4310, L100.0100, L501.9520, L501.9985, L500.4050, L300.3900 ####[facility] [address] [place], [address] MCH (RBC) [Entitic mass] 32.1 pg High 27.0-32.0 [facility] Comment on above: Performed By: #### L 300.4310, L100.0100, L501.9520, L501.9985, L500.4050, L300.3900 ####[facility] [address] [place], [address] MCHC (RBC) [Mass/Vol] 36.1 g/dL High 32-36 [facility] Comment on above: Performed By: #### L 300.4310, L100.0100, L501.9520, L501.9985, L500.4050, L300.3900 ####[facility] [address] [place], [address] MCV (RBC) [Entitic vol] 88.9 fL Normal 81-99 [facility] Comment on above: Performed By: #### L 300.4310, L100.0100, L501.9520, L501.9985, L500.4050, L300.3900 ####[facility] [address] [place], [address] Monocytes/100 WBC (Bld) 9.3 % Normal 0-10 [facility] Comment on above: Performed By: #### L 300.4310, L100.0100, L501.9520, L501.9985, L500.4050, L300.3900 ####[facility] [address] [place], [address] Neutrophils/100 WBC (Bld) 60.6 % Normal 47-70 [facility] Comment on above: Performed By: #### L 300.4310, L100.0100, L501.9520, L501.9985, L500.4050, L300.3900 ####[facility] [address] [place], [address] Nucleated RBC (Bld) [#/Vol] 0 10*3/uL Normal 0-5 [facility] Comment on above: Performed By: #### L 300.4310, L100.0100, L501.9520, L501.9985, L500.4050, L300.3900 ####[facility] [address] [place], [address] Platelet mean volume (Bld) [Entitic vol] 9.5 fL Normal 6.2-12.0 [facility] Comment on above: Performed By: #### L 300.4310, L100.0100, L501.9520, L501.9985, L500.4050, L300.3900 ####[facility] [address] [place], [address] Platelets (Bld) [#/Vol] 297 10*3/uL Normal 150-450 [facility] Comment on above: Performed By: #### L 300.4310, L100.0100, L501.9520, L501.9985, L500.4050, L300.3900 ####[facility] [address] [place], [address] RBC (Bld) [#/Vol] 2.71 10*6/uL Low 4.2-5.4 [facility] Comment on above: Performed By: #### L 300.4310, L100.0100, L501.9520, L501.9985, L500.4050, L300.3900 ####[facility] [address] [place], [address] RDW SD 43.8 fl Normal 35.1-43.9 [facility] Comment on above: Performed By: #### L 300.4310, L100.0100, L501.9520, L501.9985, L500.4050, L300.3900 ####[facility] [address] [place], [address] WBC (Bld) [#/Vol] 9.6 10*3/uL Normal 4.4-11.0 [facility] Comment on above: Performed By: #### L 300.4310, L100.0100, L501.9520, L501.9985, L500.4050, L300.3900 ####[facility] [address] [place], [address] Comprehensive Metabolic Prof mson 02-16-2025 Albumin [Mass/Vol] 3.0 g/dL Low 3.4-4.8 [facility] Comment on above: Performed By: #### L 300.4310, L100.0100, L501.9520, L501.9985, L500.4050, L300.3900 ####[facility] [address] [place], [address] Albumin/Globulin [Mass ratio] 0.8 {ratio} Low 0.9-2.4 [facility] Comment on above: Performed By: #### L 300.4310, L100.0100, L501.9520, L501.9985, L500.4050, L300.3900 ####[facility] [address] [place], [address] ALK PHOS 89 U/L Normal 35-104 [facility] Comment on above: Performed By: #### L 300.4310, L100.0100, L501.9520, L501.9985, L500.4050, L300.3900 ####[facility] [address] [place], [address] ALT [Catalytic activity/Vol] U/L Normal <=34 [facility] Comment on above: Performed By: #### L 300.4310, L100.0100, L501.9520, L501.9985, L500.4050, L300.3900 ####[facility] [address] [place], [address] AST [Catalytic activity/Vol] 34 U/L High <=31 [facility] Comment on above: Performed By: #### L 300.4310, L100.0100, L501.9520, L501.9985, L500.4050, L300.3900 ####[facility] [address] [place], [address] Bilirubin [Mass/Vol] 1.96 mg/dL High 0.00-1.30 [facility] Comment on above: Performed By: #### L 300.4310, L100.0100, L501.9520, L501.9985, L500.4050, L300.3900 ####[facility] [address] [place], [address] BUN/CRE 28.4 RATIO High 10-20 [facility] Comment on above: Performed By: #### L 300.4310, L100.0100, L501.9520, L501.9985, L500.4050, L300.3900 ####[facility] [address] [place], [address] Calcium [Mass/Vol] 8.9 mg/dL Normal 7.6-11.0 [facility] Comment on above: Performed By: #### L 300.4310, L100.0100, L501.9520, L501.9985, L500.4050, L300.3900 ####[facility] [address] [place], [address] Chloride [Moles/Vol] 102 mmol/L Normal 98-108 [facility] Comment on above: Performed By: #### L 300.4310, L100.0100, L501.9520, L501.9985, L500.4050, L300.3900 ####[facility] [address] [place], [address] CO2 [Moles/Vol] 19.9 mmol/L Low 21.0-32.0 [facility] Comment on above: Performed By: #### L 300.4310, L100.0100, L501.9520, L501.9985, L500.4050, L300.3900 ####[facility] [address] [place], [address] Creatinine [Mass/Vol] 0.77 mg/dL Normal 0.70-1.20 [facility] Comment on above: Performed By: #### L 300.4310, L100.0100, L501.9520, L501.9985, L500.4050, L300.3900 ####[facility] [address] [place], [address] ECRCL 44.44 ml/min Low 50-250 [facility] Comment on above: Performed By: #### L 300.4310, L100.0100, L501.9520, L501.9985, L500.4050, L300.3900 ####[facility] [address] [place], [address] GAP 12 Normal 5-15 [facility] Comment on above: Performed By: #### L 300.4310, L100.0100, L501.9520, L501.9985, L500.4050, L300.3900 ####[facility] [address] [place], [address] GFR/1.73 sq M.predicted among non-blacks MDRD (S/P/Bld) [Vol rate/Area] 80 mL/min/{1.73_m2} Normal >60 [facility] Comment on above: Result Comment: mL/m in/1.73m2 CKD-EPI Creatinine Equation (2020) Performed By: #### L 300.4310, L100.0100, L501.9520, L501.9985, L500.4050, L300.3900 ####[facility] [address] [place], [address] Globulin (S) [Mass/Vol] 3.6 g/dL Normal 2.2-4.2 [facility] Comment on above: Performed By: #### L 300.4310, L100.0100, L501.9520, L501.9985, L500.4050, L300.3900 ####[facility] [address] [place], [address] Glucose [Mass/Vol] 155 mg/dL High 70-99 [facility] Comment on above: Performed By: #### L 300.4310, L100.0100, L501.9520, L501.9985, L500.4050, L300.3900 ####[facility] [address] [place], [address] Potassium [Moles/Vol] 3.6 mmol/L Normal 3.3-5.1 [facility] Comment on above: Performed By: #### L 300.4310, L100.0100, L501.9520, L501.9985, L500.4050, L300.3900 ####[facility] [address] [place], [address] Sodium [Moles/Vol] 133 mmol/L Normal 133-145 [facility] Comment on above: Performed By: #### L 300.4310, L100.0100, L501.9520, L501.9985, L500.4050, L300.3900 ####[facility] [address] [place], [address] T PROT 6.6 g/dL Normal 5.9-8.4 [facility] Comment on above: Performed By: #### L 300.4310, L100.0100, L501.9520, L501.9985, L500.4050, L300.3900 ####[facility] [address] [place], [address] Urea nitrogen [Mass/Vol] 22 mg/dL High 4-19 [facility] Comment on above: Performed By: #### L 300.4310, L100.0100, L501.9520, L501.9985, L500.4050, L300.3900 ####[facility] [address] [place], [address] Consultation - Orthopedicson 02-16-2025 Consultation - Orthopedics Normal [facility] Hemoglobin A1con 02-16-2025 HbA1c (Bld) [Mass fraction] 7.3 % High <=5.6 [facility] Comment on above: Result Comment: Norm al < 5.7 % Prediabetic 5.7 - 6.4 % Diabetic >or= 6.5 % Please note range changes. Performed By: #### L 300.4310, L100.0100, L501.9520, L501.9985, L500.4050, L300.3900 ####[facility] [address] [place], [place], [address] Hemoglobin A1c percentageOrd ered By: Lakeshia Mas on 02-16-2025 HbA1c (Bld) [Mass fraction] 7.3 % High <5.7 [facility] Comment on above: Normal < 5.7 % Predi abetic 5.7 - 6.4 % Diabetic >or= 6.5 % Please note range changes. Hip Min 2 Views (Portable)on 02-16-2025 Hip Min 2 Views (Portable) Normal [facility] International normalized rat io (INR) calculationOrdered By: Lakeshia Mas on 02-16-2025 INR Coag (Bld) [Relative time] 1.1 {INR} [facility] Laboratory - Chemistry and C hemistry - challengeOrdered By: Lakeshia Mas on 02-16-2025 AST [Catalytic activity/Vol] 34 U/L High <32 [facility] MR/POSTOP.ANEon 02-16-2025 MR/POSTOP.ANE Normal [facility] O.R. Fluoro for C-Panfilo 01-22 O.R. Fluoro for C-Arm Normal [facility] Operative Reporton Operative Report Normal [facility] Partial Thromboplast Timeon 02-16-2025 aPTT Coag (Bld) [Time] 31.5 s Normal 24.1-36.2 [facility] Comment on above: Performed By: #### L 300.4310, L100.0100, L501.9520, L501.9985, L500.4050, L300.3900 ####[facility] [address] [place], [place], [address] Prothrombin Time w/INRon INR Coag (PPP) [Relative time] 1.1 {INR} Normal [facility] Comment on above: Performed By: #### L 300.4310, L100.0100, L501.9520, L501.9985, L500.4050, L300.3900 ####[facility] [address] [place], [address] PT Coag (PPP) [Time] 14.6 s Normal 11.7-14.9 [facility] Comment on above: Performed By: #### L 300.4310, L100.0100, L501.9520, L501.9985, L500.4050, L300.3900 ####[facility] [address] [place], [address] Prothrombin timeOrdered By: Lakeshia Mas on 02-16-2025 PT Coag (PPP) [Time] 14.6 s 11.7-14.9 [facility] Serum globulin measurementOr dered By: Lakeshia Mas on 02-16-2025 Globulin (S) [Mass/Vol] 3.6 g/dL 2.2-4.2 [facility] Serum or plasma alanine cornejo otransferase (ALT) measurementOrdered By: Lakeshia Mas on 02-16-2025 ALT [Catalytic activity/Vol] U/L <35 [facility] Serum or plasma albumin sabino urement (mass/volume)Ordered By: Lakeshia Mas on 02-16-2025 Albumin [Mass/Vol] 3.0 g/dL Low 3.4-4.8 [facility] Serum or plasma albumin/glob ulin mass ratioOrdered By: Lakeshia Mas on 02-16-2025 Albumin/Globulin [Mass ratio] 0.8 {ratio} Low 0.9-2.4 [facility] Serum or plasma alkaline shaista sphatase measurementOrdered By: Lakeshia Mas on 02-16-2025 ALP [Catalytic activity/Vol] 89 U/L 35-104 [facility] T4 Free Directon 02-16-2025 T4 FREE DIRECT 1.10 ng/dL Normal 0.76-1.46 [facility] Comment on above: Performed By: #### L 506.0400, L506.1001 ####[facility] [address] [place], [address] T4 freeOrdered By: Baldev reza on 02-16-2025 Free T4 [Mass/Vol] 1.10 ng/dL 0.76-1.46 [facility] TSH DL <= 0.005 mIU/L QnOrde red By: Lakeshia Mas on 02-16-2025 TSH Qn 7.490 uIU/mL High 0.300-4.200 [facility] Thyroid Stim Hormone (TSH)on 02-16-2025 TSH 7.490 uIU/mL High 0.300-4.200 [facility] Comment on above: Performed By: #### L 300.4310, L100.0100, L501.9520, L501.9985, L500.4050, L300.3900 ####[facility] [address] [place], [address] Total proteinOrdered By: Stephan Mas on 02-16-2025 Protein [Mass/Vol] 6.6 g/dL 5.9-8.4 [facility] Type AND Screenon 02-16-2025 ABO and Rh group Nom (Bld) Blood group O Rh(D) positive Normal [facility] Comment on above: Order Comment: S Performed By: #### B TS ####[facility] [address] [place], [place], [address] Vitamin D,25 Hydroxyon 02-16 Vitamin D 25-OH 10.7 ng/mL Low 30-100 [facility] Comment on above: Result Comment: Jojo min D StatusDeficiency: <20 ng/mL (50nmol/L)Insufficiency: 20-30 ng/mL (50-75 nmol/L)Sufficiency: 30-100 ng/mL (75-250 nmol/L)Toxicity: >100 ng/mL (>250 nmol/L) Performed By: #### L 506.0400, L506.1001 ####[facility] [address] [place], [place], [address] Absolute lymphocyte countOrd ered By: Abdirashid Cano on 02-15-2025 Lymphocytes Auto (Unsp spec) [#/Vol] 3.52 10*3/uL 0.83-4.51 [facility] Absolute neutrophil countOrd ered By: Abdirashid Cano on 02-15-2025 Neutrophils (Bld) [#/Vol] 4.6 10*3/uL 2.0-7.7 [facility] Anion gap in Serum or Plasma Ordered By: Abdirashid Cano on 02-15-2025 Anion gap [Moles/Vol] 15 mmol/L 5-15 [facility] Automated lymphocyte count a s percentage of total leukocytesOrdered By: Abdirashid Cano on 02-15-2025 Lymphocytes/100 WBC Auto (Unsp spec) 38.6 % 19-41 [facility] BRCon 02-15-2025 RC Normal [facility] Comment on above: Result Comment: [id number] OP RC TRANSFUSED 02/16/25 [id number] OP RC TRANSFUSED 02/16/25 1642 Performed By: #### B RC ####[facility] [address] [place], [place], [address] BUN/creatinine ratioOrdered By: Abdirashid Cano on 02-15-2025 Urea nitrogen/Creatinine [Mass ratio] 25.3 mg/mg High 10-20 [facility] Basophil percentageOrdered B y: Abdirashid Cano on 02-15-2025 Basophils/100 WBC (Bld) 0.4 % 0-1 [facility] Bedside Glucoseon 02-15-2025 FINGERSTICK GLU 148 mg/dL High 74-106 [facility] Comment on above: Result Comment: MARINA GEMENT OF PATIENT CARE PER NURSING PROTOCOL Performed By: #### L 501.080 ####[facility] [address] [place], [place], [address] Bilirubin Test strip Ql (U)O rdered By: Abdirashid Cano on 02-15-2025 Bilirubin Ql (U) Negative Negative [facility] Bilirubin directOrdered By: Lakeshia Mas on 02-15-2025 Bilirubin.direct [Mass/Vol] 1.15 mg/dL High 0.00-0.30 [facility] Bilirubin, Directon 02-16-20 Bilirubin.direct [Mass/Vol] 1.15 mg/dL High 0.00-0.30 [facility] Comment on above: Performed By: #### L 3100.1850, L504.2610, L501.4700 ####[facility] [address] [place], [address] Bilirubin, totalOrdered By: Abdirashid Cano on 02-15-2025 Bilirubin [Mass/Vol] 2.68 mg/dL High 0.00-1.30 [facility] CBC W/Diff, Automatedon 01-22 Absolute Lymph 3.52 X10 3/uL Normal 0.83-4.51 [facility] Comment on above: Performed By: #### L 100.0100, L500.4050 ####[facility] [address] [place], [address] Absolute Neut 4.6 X10 3/uL Normal 2.0-7.7 [facility] Comment on above: Performed By: #### L 100.0100, L500.4050 ####[facility] [address] [place], [address] Basophils/100 WBC (Bld) 0.4 % Normal 0-1 [facility] Comment on above: Performed By: #### L 100.0100, L500.4050 ####[facility] [address] [place], [address] Eosinophils/100 WBC (Bld) 1.8 % Normal 0-5 [facility] Comment on above: Performed By: #### L 100.0100, L500.4050 ####[facility] [address] [place], [address] Erythrocyte distribution width (RBC) [Ratio] 14.1 % Normal 11.6-14.6 [facility] Comment on above: Performed By: #### L 100.0100, L500.4050 ####[facility] [address] [place], [address] Hematocrit (Bld) [Volume fraction] 24.0 % Low 37-47 [facility] Comment on above: Performed By: #### L 100.0100, L500.4050 ####[facility] [address] [place], [address] Hemoglobin (Bld) [Mass/Vol] 8.7 g/dL Low 12.0-15.0 [facility] Comment on above: Performed By: #### L 100.0100, L500.4050 ####[facility] [address] [place], [address] IG% 0.300 Normal 0.0-0.9 [facility] Comment on above: Result Comment: IG% - Immature Granulocytes (promyelocytes, myelocytes andmetamyelocytes) > 1% indicates that a LEFT SHIFT is Present. Performed By: #### L 100.0100, L500.4050 ####[facility] [address] [place], [address] Lymphocytes/100 WBC (Bld) 38.6 % Normal 19-41 [facility] Comment on above: Performed By: #### L 100.0100, L500.4050 ####[facility] [address] [place], [address] MCH (RBC) [Entitic mass] 32.1 pg High 27.0-32.0 [facility] Comment on above: Performed By: #### L 100.0100, L500.4050 ####[facility] [address] [place], [address] MCHC (RBC) [Mass/Vol] 36.3 g/dL High 32-36 [facility] Comment on above: Performed By: #### L 100.0100, L500.4050 ####[facility] [address] [place], [address] MCV (RBC) [Entitic vol] 88.6 fL Normal 81-99 [facility] Comment on above: Performed By: #### L 100.0100, L500.4050 ####[facility] [address] [place], [address] Monocytes/100 WBC (Bld) 8.7 % Normal 0-10 [facility] Comment on above: Performed By: #### L 100.0100, L500.4050 ####[facility] [address] [place], [address] Neutrophils/100 WBC (Bld) 50.2 % Normal 47-70 [facility] Comment on above: Performed By: #### L 100.0100, L500.4050 ####[facility] [address] [place], [address] Nucleated RBC (Bld) [#/Vol] 0 10*3/uL Normal 0-5 [facility] Comment on above: Performed By: #### L 100.0100, L500.4050 ####[facility] [address] [place], [address] Platelet mean volume (Bld) [Entitic vol] 9.6 fL Normal 6.2-12.0 [facility] Comment on above: Performed By: #### L 100.0100, L500.4050 ####[facility] [address] [place], [address] Platelets (Bld) [#/Vol] 258 10*3/uL Normal 150-450 [facility] Comment on above: Performed By: #### L 100.0100, L500.4050 ####[facility] [address] [place], [address] RBC (Bld) [#/Vol] 2.71 10*6/uL Low 4.2-5.4 [facility] Comment on above: Performed By: #### L 100.0100, L500.4050 ####[facility] [address] [place], [address] RDW SD 42.4 fl Normal 35.1-43.9 [facility] Comment on above: Performed By: #### L 100.0100, L500.4050 ####[facility] [address] [place], [address] WBC (Bld) [#/Vol] 9.1 10*3/uL Normal 4.4-11.0 [facility] Comment on above: Performed By: #### L 100.0100, L500.4050 ####[facility] [address] [place], [address] Carbon dioxide, total [Moles /volume] in Central venous bloodOrdered By: Abdirashid Cano on 02-15-2025 CO2 [Moles/Vol] 18.1 mmol/L Low 21.0-32.0 [facility] Chloride assayOrdered By: Anurag Cano on 02-15-2025 Chloride [Moles/Vol] 100 mmol/L 98-108 [facility] Comprehensive Metabolic Prof ilon 02-15-2025 Albumin [Mass/Vol] 3.0 g/dL Low 3.4-4.8 [facility] Comment on above: Performed By: #### L 100.0100, L500.4050 ####[facility] [address] [place], [address] Albumin/Globulin [Mass ratio] 0.8 {ratio} Low 0.9-2.4 [facility] Comment on above: Performed By: #### L 100.0100, L500.4050 ####[facility] [address] [place], [address] ALK PHOS 77 U/L Normal 35-104 [facility] Comment on above: Performed By: #### L 100.0100, L500.4050 ####[facility] [address] [place], [address] ALT [Catalytic activity/Vol] U/L Normal <=34 [facility] Comment on above: Performed By: #### L 100.0100, L500.4050 ####[facility] [address] [place], [address] AST [Catalytic activity/Vol] 33 U/L High <=31 [facility] Comment on above: Performed By: #### L 100.0100, L500.4050 ####[facility] [address] [place], [address] Bilirubin [Mass/Vol] 2.68 mg/dL High 0.00-1.30 [facility] Comment on above: Performed By: #### L 100.0100, L500.4050 ####[facility] [address] [place], [address] BUN/CRE 25.3 RATIO High 10-20 [facility] Comment on above: Performed By: #### L 100.0100, L500.4050 ####[facility] [address] [place], [address] Calcium [Mass/Vol] 8.7 mg/dL Normal 7.6-11.0 [facility] Comment on above: Performed By: #### L 100.0100, L500.4050 ####[facility] [address] [place], [address] Chloride [Moles/Vol] 100 mmol/L Normal 98-108 [facility] Comment on above: Performed By: #### L 100.0100, L500.4050 ####[facility] [address] [place], [address] CO2 [Moles/Vol] 18.1 mmol/L Low 21.0-32.0 [facility] Comment on above: Performed By: #### L 100.0100, L500.4050 ####[facility] [address] [place], [address] Creatinine [Mass/Vol] 0.76 mg/dL Normal 0.70-1.20 [facility] Comment on above: Performed By: #### L 100.0100, L500.4050 ####[facility] [address] [place], [address] ECRCL 50.65 ml/min Normal 50-250 [facility] Comment on above: Performed By: #### L 100.0100, L500.4050 ####[facility] [address] [place], [address] GAP 15 Normal 5-15 [facility] Comment on above: Performed By: #### L 100.0100, L500.4050 ####[facility] [address] [place], [address] GFR/1.73 sq M.predicted among non-blacks MDRD (S/P/Bld) [Vol rate/Area] 80 mL/min/{1.73_m2} Normal >60 [facility] Comment on above: Result Comment: mL/m in/1.73m2 CKD-EPI Creatinine Equation (2020) Performed By: #### L 100.0100, L500.4050 ####[facility] [address] [place], [address] Globulin (S) [Mass/Vol] 3.7 g/dL Normal 2.2-4.2 [facility] Comment on above: Performed By: #### L 100.0100, L500.4050 ####[facility] [address] [place], [address] Glucose [Mass/Vol] 155 mg/dL High 70-99 [facility] Comment on above: Performed By: #### L 100.0100, L500.4050 ####[facility] [address] [place], [address] Potassium [Moles/Vol] 3.7 mmol/L Normal 3.3-5.1 [facility] Comment on above: Performed By: #### L 100.0100, L500.4050 ####[facility] [address] [place], [address] Sodium [Moles/Vol] 133 mmol/L Normal 133-145 [facility] Comment on above: Performed By: #### L 100.0100, L500.4050 ####[facility] [address] [place], [address] T PROT 6.8 g/dL Normal 5.9-8.4 [facility] Comment on above: Performed By: #### L 100.0100, L500.4050 ####[facility] [address] [place], [address] Urea nitrogen [Mass/Vol] 19 mg/dL Normal 4-19 [facility] Comment on above: Performed By: #### L 100.0100, L500.4050 ####[facility] [address] [place], [address] Emergency Department Summary on 02-15-2025 Emergency Department Summary Normal [facility] Eosinophil percentageOrdered By: Abdirashidroxie Cano on 02-15-2025 Eosinophils/100 WBC (Bld) 1.8 % 0-5 [facility] Erythrocyte distribution wid th ratioOrdered By: Abdirashid Cano on 02-15-2025 Erythrocyte distribution width (RBC) [Ratio] 14.1 % 11.6-14.6 [facility] Erythrocyte distribution wid th standard deviationOrdered By: Abdirashid Cano on 02-15-2025 Erythrocyte distribution width (RBC) [Ratio] 42.4 fl 35.1-43.9 [facility] Femur Min 2 Viewson 02-16-20 25 Femur Min 2 Views Normal [facility] Ferritinon 02-15-2025 Ferritin [Mass/Vol] 150 ng/mL Normal 22-378 [facility] Comment on above: Performed By: #### L 503.6550, L100.9950, L503.6030 ####[facility] [address] [place], [place], [address] Glomerular filtration rate ( GFR) estimation/1.73 sq m using serum, plasma, or whole bOrdered By: Abdirashid Cano on 02-15-2025 GFR/1.73 sq M.predicted among non-blacks MDRD (S/P/Bld) [Vol rate/Area] 80 mL/min/{1.73_m2} >60 [facility] Comment on above: mL/min/1.73m2 CKD-EP I Creatinine Equation (2020) H AND P Exam - Hospitaliston 02-15-2025 H&P Exam - Hospitalist Normal [facility] HIP, UNI W/ Pelvis 2-3 Views on 02-15-2025 HIP, UNI W/ Pelvis 2-3 Views Normal [facility] Hematocrit Auto (Bld) [Volum e fraction]Ordered By: Abdirashid Cano on 02-15-2025 Hematocrit (Bld) [Volume fraction] 24.0 % Low 37-47 [facility] Hemoglobin measurementOrdere d By: Abdirashid Cano on 02-15-2025 Hemoglobin (Bld) [Mass/Vol] 8.7 g/dL Low 12.0-15.0 [facility] Immature granulocytes/100 WB C Auto (Bld)Ordered By: Abdirashid Cano on 02-15-2025 Immature granulocytes/100 WBC (Bld) 0.300 % 0.0-0.9 [facility] Comment on above: IG% - Immature Granu locytes (promyelocytes, myelocytes and metamyelocytes) > 1% indicates that a LEFT SHIFT is Present. Iron measurement (mass/mass) Ordered By: Lakeshia Mas on 02-15-2025 Iron (Unsp spec) [Mass/Mass] 62 ug/dL 50-170 [facility] Iron+Iron Binding Capacityon 02-15-2025 TIBC 197 ug/dL Low 250-450 [facility] Comment on above: Performed By: #### L 503.6550, L100.9950, L503.6030 ####[facility] [address] [place], [place], [address] Ketones Test strip Ql (U)Ord ered By: Abdirashid Cano on 02-15-2025 Ketones Ql (U) 15 mg/dl High Negative [facility] LDHon 02-15-2025 LDH 247 U/L High 84-246 [facility] Comment on above: Performed By: #### L 3100.1850, L504.2610, L501.4700 ####[facility] [address] [place], [address] Laboratory - Chemistry and C hemistry - challengeOrdered By: Abdirashid Cano on 02-15-2025 AST [Catalytic activity/Vol] 33 U/L High <32 [facility] Lactate dehydrogenase (LDH) measurementOrdered By: Lakeshia Mas on 02-15-2025 LDH [Catalytic activity/Vol] 247 U/L High 84-246 [facility] MCV (mean corpuscular volume ) determinationOrdered By: Abdirashid Cano on 02-15-2025 MCV (RBC) [Entitic vol] 88.6 fL 81-99 [facility] Mean corpuscular hemoglobin (MCH) determinationOrdered By: Abdirashid Cano on 02-15-2025 MCH (RBC) [Entitic mass] 32.1 pg High 27.0-32.0 [facility] Mean corpuscular hemoglobin concentration (MCHC) determinationOrdered By: Abdirashid Cano on 02-15-2025 MCHC (RBC) [Mass/Vol] 36.3 g/dL High 32-36 [facility] Mean platelet volume determi nationOrdered By: Abdirashid Cano on 02-15-2025 Platelet mean volume (Bld) [Entitic vol] 9.6 fL 6.2-12.0 [facility] Microscopic analysis of urin e for red blood cells (RBC)Ordered By: Abdirashid Cano on 02-15-2025 Microscopic analysis of urine for red blood cells (RBC) 0-5 SEEN /hpf 0-5 [facility] Monocyte percentageOrdered B y: Abdirashid Cano on 02-15-2025 Monocytes/100 WBC (Bld) 8.7 % 0-10 [facility] Mucus LM Ql (Urine sed)Order ed By: Abdirashid Cano on 02-15-2025 Mucus Ql (Urine sed) 0 SEEN /hpf [facility] Neutrophil percentageOrdered By: Abdirashid Cano on 02-15-2025 Neutrophils/100 WBC (Bld) 50.2 % 47-70 [facility] Nitrite Test strip Ql (U)Ord ered By: Abdirashid Cano on 02-15-2025 Nitrite Ql (U) Negative Negative [facility] No Panel InformationOrdered By: Lakeshia Mas on 02-15-2025 Unsaturated Iron Binding Capacity 135 ug/dL Low 228-428 [facility] Nucleated red blood cell per centageOrdered By: Abdirashid Cano on 02-15-2025 Nucleated RBC/100 WBC (Bld) [Ratio] 0 % 0-5 [facility] Platelet countOrdered By: Anurag Cano on 02-15-2025 Platelets (Bld) [#/Vol] 258 10*3/uL 150-450 [facility] Potassium measurement (mass/ volume)Ordered By: Abdirashid Cano on 02-15-2025 Potassium (Unsp spec) [Mass/Vol] 3.7 mmol/L 3.3-5.1 [facility] Protein Test strip Ql (U)Ord ered By: Abdirashid Cano on 02-15-2025 Protein Ql (U) 30 mg/dl High Negative [facility] RBC Auto (Bld) [#/Vol]Ordere d By: Abdirashid Cano on 02-15-2025 RBC (Bld) [#/Vol] 2.71 10*6/uL Low 4.2-5.4 [facility] Retic Panelon 02-15-2025 IM RET FRACTION 12.50 Normal 3.00-15.90 [facility] Comment on above: Performed By: #### L 503.6550, L100.9950, L503.6030 ####[facility] [address] [place], [place], [id number] RET-HE 35.7 pg High 30-35 [facility] Comment on above: Performed By: #### L 503.6550, L100.9950, L503.6030 ####[facility] [address] [place], [address] Retic Count 4.81 High 0.5-1.5 [facility] Comment on above: Performed By: #### L 503.1705, L100.9989, L503.6046 ####[facility] [address] [place], [address] Reticulocyte hemoglobin equi valent (RET-He) measurementOrdered By: Lakeshia Mas on 02-15-2025 Hemoglobin (Reticulocytes) [Entitic mass] 35.7 pg High 30-35 [facility] Reticulocytes Auto (Bld) [#/ Vol]Ordered By: Lakeshia Mas on 02-15-2025 Reticulocytes/100 RBC (Bld) 4.81 % High 0.5-1.5 [facility] Serum creatinine measurement (mass/volume)Ordered By: Abdirashid Cano on 02-15-2025 Creatinine [Mass/Vol] 0.76 mg/dL 0.70-1.20 [facility] Serum globulin measurementOr dered By: Abdirashid Cano on 02-15-2025 Globulin (S) [Mass/Vol] 3.7 g/dL 2.2-4.2 [facility] Serum glucose measurement (m ass/volume)Ordered By: Abdirashid Cano on 02-15-2025 Glucose [Mass/Vol] 155 mg/dL High 70-99 [facility] Serum or plasma alanine cornejo otransferase (ALT) measurementOrdered By: Abdirashid Cano on 02-15-2025 ALT [Catalytic activity/Vol] U/L <35 [facility] Serum or plasma albumin sabino urement (mass/volume)Ordered By: Abdirashid Cano on 02-15-2025 Albumin [Mass/Vol] 3.0 g/dL Low 3.4-4.8 [facility] Serum or plasma albumin/glob ulin mass ratioOrdered By: Abdirashid Cano on 02-15-2025 Albumin/Globulin [Mass ratio] 0.8 {ratio} Low 0.9-2.4 [facility] Serum or plasma alkaline shaista sphatase measurementOrdered By: Abdirashid Cano on 02-15-2025 ALP [Catalytic activity/Vol] 77 U/L 35-104 [facility] Serum or plasma calcium sabino urement (mass/volume)Ordered By: Abdirashid Cano on 02-15-2025 Calcium [Mass/Vol] 8.7 mg/dL 7.6-11.0 [facility] Serum or plasma ferritin uzma surement (mass/volume)Ordered By: Lakeshia Mas on 02-15-2025 Ferritin [Mass/Vol] 150 ng/mL 22-378 [facility] Serum or plasma iron saturat ion measurement (mass fraction)Ordered By: Lakeshia aMs on 02-15-2025 Iron saturation [Mass fraction] 32.0 % 13-59 [facility] Comment on above: Previous reported re sult: 32.0 %Edited by: CHACHA on 02/15/25:2135 Serum or plasma urea nitroge n measurement (mass/volume)Ordered By: Abdirashid Cano on 02-15-2025 Urea nitrogen [Mass/Vol] 19 mg/dL 4-19 [facility] Sodium levelOrdered By: Judith Cano on 02-15-2025 Sodium [Moles/Vol] 133 mmol/L 133-145 [facility] Squamous epithelial cells de tection in urine sediment by light microscopyOrdered By: Abdirashid Cano on 02-15-2025 Epithelial cells.squamous LM Ql (Urine sed) 5-10 SEEN /hpf 5-10 [facility] Total proteinOrdered By: Ronak Cano on 02-15-2025 Protein [Mass/Vol] 6.8 g/dL 5.9-8.4 [facility] Urinalysis, Completeon 02-15 EPI,SQUAMOUS 5-10 SEEN Normal 5-10 [facility] Comment on above: Order Comment: MELVIN TER SPECIMEN Performed By: #### L 400.0001 ####[facility] [address] [place], [place], [id number] RBC 0-5 SEEN Normal 0-5 [facility] Comment on above: Order Comment: MELVIN TER SPECIMEN Performed By: #### L 400.0001 ####[facility] [address] [place], [place], [id number] WBC 0-5 SEEN Normal 0-5 [facility] Comment on above: Order Comment: MELVIN TER SPECIMEN Performed By: #### L 400.0001 ####[facility] [address] [place], [address] BACTERIA 0 SEEN Normal None Seen [facility] Comment on above: Order Comment: MELVIN TER SPECIMEN Performed By: #### L 400.0001 ####[facility] [address] [place], [place], [id number] Mucus Ql (Urine sed) 0 SEEN Normal [facility] Comment on above: Order Comment: MELVIN TER SPECIMEN Performed By: #### L 400.0001 ####[facility] [address] [place], [place], [id number] Urine clarityOrdered By: Ronak Cano on 02-15-2025 Clarity (U) Clear Clear [facility] Urine color determinationOrd ered By: Abdirashid Cano on 02-15-2025 Color (U) Straw Yellow [facility] Urine glucose detectionOrder ed By: Abdirashid Cano on 02-15-2025 Glucose Ql (U) Normal mg/dl Normal [facility] Urine leukocyte esterase det ection by dipstickOrdered By: Abdirashid Cano on 02-15-2025 Leukocyte esterase Test strip Ql (U) Negative Negative [facility] Urine pHOrdered By: Abdirashid walden on 02-15-2025 pH (U) 6.5 [pH] 5.0 - 8.0 [facility] Urine sediment bacteria coun t by microscopy (number/high power field)Ordered By: Abdirashid Cano on 02-15-2025 Bacteria LM.HPF (Urine sed) [#/Area] 0 /[HPF] None Seen [facility] Urine specific gravity measu rementOrdered By: Abdirashid Cano on 02-15-2025 Specific gravity (U) [Rel density] 1.010 1.002-1.030 [facility] Urine urobilinogen measureme ntOrdered By: Abdirashid Cano on 02-15-2025 Urobilinogen Ql (U) 8 mg/dl High Normal [facility] White blood cell (WBC) count Ordered By: Abdirashid Cano on 02-15-2025 WBC (Bld) [#/Vol] 9.1 10*3/uL 4.4-11.0 [facility] White blood cell countOrdere d By: Abdirashid Cano on 02-15-2025 White blood cell count 0-5 SEEN /hpf 0-5 [facility] CBC W/Diff, Automatedon 05-0 Absolute Neut Normal 2.0-7.7 [facility] Comment on above: Result Comment: WAS UTO, WILL COME BACK ANOTHER DAY Performed By: #### L 100.0100, L500.4050, L500.4100 ####[facility] [address] [place], [address] HCT Normal 37-47 [facility] Comment on above: Result Comment: WAS UTO, WILL COME BACK ANOTHER DAY Performed By: #### L 100.0100, L500.4050, L500.4100 ####[facility] [address] [place], [address] HGB Normal 12.0-15.0 [facility] Comment on above: Result Comment: WAS UTO, WILL COME BACK ANOTHER DAY Performed By: #### L 100.0100, L500.4050, L500.4100 ####[facility] [address] [place], [address] MCH Normal 27.0-32.0 [facility] Comment on above: Result Comment: WAS UTO, WILL COME BACK ANOTHER DAY Performed By: #### L 100.0100, L500.4050, L500.4100 ####[facility] [address] [place], [address] MCHC Normal 32-36 [facility] Comment on above: Result Comment: WAS UTO, WILL COME BACK ANOTHER DAY Performed By: #### L 100.0100, L500.4050, L500.4100 ####[facility] [address] [place], [address] MCV Normal 81-99 [facility] Comment on above: Result Comment: WAS UTO, WILL COME BACK ANOTHER DAY Performed By: #### L 100.0100, L500.4050, L500.4100 ####[facility] [address] [place], [address] NEUT% Normal 47-70 [facility] Comment on above: Result Comment: WAS UTO, WILL COME BACK ANOTHER DAY Performed By: #### L 100.0100, L500.4050, L500.4100 ####[facility] [address] [place], [address] PLT Normal 150-450 [facility] Comment on above: Result Comment: WAS UTO, WILL COME BACK ANOTHER DAY Performed By: #### L 100.0100, L500.4050, L500.4100 ####[facility] [address] [place], [address] RBC Normal 4.2-5.4 [facility] Comment on above: Result Comment: WAS UTO, WILL COME BACK ANOTHER DAY Performed By: #### L 100.0100, L500.4050, L500.4100 ####[facility] [address] [place], [address] RDW CV Normal 11.6-14.6 [facility] Comment on above: Result Comment: WAS UTO, WILL COME BACK ANOTHER DAY Performed By: #### L 100.0100, L500.4050, L500.4100 ####[facility] [address] [place], [address] RDW SD Normal 35.1-43.9 [facility] Comment on above: Result Comment: WAS UTO, WILL COME BACK ANOTHER DAY Performed By: #### L 100.0100, L500.4050, L500.4100 ####[facility] [address] [place], [address] WBC Normal 4.4-11.0 [facility] Comment on above: Result Comment: WAS UTO, WILL COME BACK ANOTHER DAY Performed By: #### L 100.0100, L500.4050, L500.4100 ####[facility] [address] [place], [address] Comprehensive Metabolic Prof ilon 12-27-2024 ALB Normal 3.4-4.8 [facility] Comment on above: Result Comment: WAS UTO, WILL COME BACK ANOTHER DAY Performed By: #### L 100.0100, L500.4050, L500.4100 ####[facility] [address] [place], [address] ALK PHOS Normal 35-104 [facility] Comment on above: Result Comment: WAS UTO, WILL COME BACK ANOTHER DAY Performed By: #### L 100.0100, L500.4050, L500.4100 ####[facility] [address] [place], [address] ALT Normal <=34 [facility] Comment on above: Result Comment: WAS UTO, WILL COME BACK ANOTHER DAY Performed By: #### L 100.0100, L500.4050, L500.4100 ####[facility] [address] [place], [address] AST Normal <=31 [facility] Comment on above: Result Comment: WAS UTO, WILL COME BACK ANOTHER DAY Performed By: #### L 100.0100, L500.4050, L500.4100 ####[facility] [address] [place], [address] BUN Normal 4-19 [facility] Comment on above: Result Comment: WAS UTO, WILL COME BACK ANOTHER DAY Performed By: #### L 100.0100, L500.4050, L500.4100 ####[facility] [address] [place], [address] BUN/CRE Normal 10-20 [facility] Comment on above: Result Comment: WAS UTO, WILL COME BACK ANOTHER DAY Performed By: #### L 100.0100, L500.4050, L500.4100 ####[facility] [address] [place], [address] Calcium Normal 7.6-11.0 [facility] Comment on above: Result Comment: WAS UTO, WILL COME BACK ANOTHER DAY Performed By: #### L 100.0100, L500.4050, L500.4100 ####[facility] [address] [place], [address] CL Normal 98-108 [facility] Comment on above: Result Comment: WAS UTO, WILL COME BACK ANOTHER DAY Performed By: #### L 100.0100, L500.4050, L500.4100 ####[facility] [address] [place], [address] CO2 Normal 21.0-32.0 [facility] Comment on above: Result Comment: WAS UTO, WILL COME BACK ANOTHER DAY Performed By: #### L 100.0100, L500.4050, L500.4100 ####[facility] [address] [place], [address] CREAT,SERUM Normal 0.70-1.20 [facility] Comment on above: Result Comment: WAS UTO, WILL COME BACK ANOTHER DAY Performed By: #### L 100.0100, L500.4050, L500.4100 ####[facility] [address] [place], [address] eGFR Normal >60 [facility] Comment on above: Result Comment: WAS UTO, WILL COME BACK ANOTHER DAY Performed By: #### L 100.0100, L500.4050, L500.4100 ####[facility] [address] [place], [address] GAP Normal 5-15 [facility] Comment on above: Result Comment: WAS UTO, WILL COME BACK ANOTHER DAY Performed By: #### L 100.0100, L500.4050, L500.4100 ####[facility] [address] [place], [address] GLU Normal 70-99 [facility] Comment on above: Result Comment: WAS UTO, WILL COME BACK ANOTHER DAY Performed By: #### L 100.0100, L500.4050, L500.4100 ####[facility] [address] [place], [address] Potassium Normal 3.3-5.1 [facility] Comment on above: Result Comment: WAS UTO, WILL COME BACK ANOTHER DAY Performed By: #### L 100.0100, L500.4050, L500.4100 ####[facility] [address] [place], [address] T BILI Normal 0.00-1.30 [facility] Comment on above: Result Comment: WAS UTO, WILL COME BACK ANOTHER DAY Performed By: #### L 100.0100, L500.4050, L500.4100 ####[facility] [address] [place], [address] T PROT Normal 5.9-8.4 [facility] Comment on above: Result Comment: WAS UTO, WILL COME BACK ANOTHER DAY Performed By: #### L 100.0100, L500.4050, L500.4100 ####[facility] [address] [place], [address] Comprehensive Metabolic Profil Normal 133-145 [facility] Comment on above: Result Comment: WAS UTO, WILL COME BACK ANOTHER DAY Performed By: #### L 100.0100, L500.4050, L500.4100 ####[facility] [address] [place], [address] Lipid Profileon 12-27-2024 CHOL Normal <=200 [facility] Comment on above: Result Comment: WAS UTO, WILL COME BACK ANOTHER DAY Performed By: #### L 100.0100, L500.4050, L500.4100 ####[facility] [address] [place], [address] CHOL:HDL Normal [facility] Comment on above: Result Comment: WAS UTO, WILL COME BACK ANOTHER DAY Performed By: #### L 100.0100, L500.4050, L500.4100 ####[facility] [address] [place], [address] CLDL Normal [facility] Comment on above: Result Comment: WAS UTO, WILL COME BACK ANOTHER DAY Performed By: #### L 100.0100, L500.4050, L500.4100 ####[facility] [address] [place], [address] HDL Normal [facility] Comment on above: Result Comment: WAS UTO, WILL COME BACK ANOTHER DAY Performed By: #### L 100.0100, L500.4050, L500.4100 ####[facility] [address] [place], [address] TRIG Normal [facility] Comment on above: Result Comment: WAS UTO, WILL COME BACK ANOTHER DAY Performed By: #### L 100.0100, L500.4050, L500.4100 ####[facility] [address] [place], [address] VLDL Normal 5-40 [facility] Comment on above: Result Comment: WAS UTO, WILL COME BACK ANOTHER DAY Performed By: #### L 100.0100, L500.4050, L500.4100 ####[facility] [address] [place], [address] Absolute lymphocyte countOrd ered By: Candelario Santana on 09-25-2024 Lymphocytes Auto (Unsp spec) [#/Vol] 2.89 10*3/uL 0.83-4.51 [facility] Absolute neutrophil countOrd ered By: Candelario Santana on 09-25-2024 Neutrophils (Bld) [#/Vol] 4.6 10*3/uL 2.0-7.7 [facility] Albumin to globulin ratioOrd ered By: Candelario Santana on 09-25-2024 Albumin/Globulin [Mass ratio] 0.7 {ratio} Low 0.9-2.4 [facility] Automated lymphocyte count a s percentage of total leukocytesOrdered By: Candelario Max on 09-25-2024 Lymphocytes/100 WBC Auto (Unsp spec) 33.8 % 19-41 [facility] Basophil percentageOrdered B y: Candelario Santana on 09-25-2024 Basophils/100 WBC (Bld) 0.5 % 0-1 [facility] Bilirubin, totalOrdered By: Candelario Max on 09-25-2024 Bilirubin [Mass/Vol] 1.10 mg/dL High 0.20-1.00 [facility] Comment on above: For patients on eltr ombopag therapy, use of Dimension [place] TBIL is not recommended. Blood urea nitrogen (BUN)/cr eatinine ratioOrdered By: Candelario Santana on 09-25-2024 Urea nitrogen/Creatinine [Mass ratio] 17.2 mg/mg 10-20 [facility] CBC W/Diff, Automatedon Absolute Lymph 2.89 X10 3/uL Normal 0.83-4.51 [facility] Comment on above: Performed By: #### L 100.0100, L502.0250, L501.9520, L506.1000, L500.4100, L500.4050, L501.9985 ####[facility] [address] [place], [place], [address] Absolute Neut 4.6 X10 3/uL Normal 2.0-7.7 [facility] Comment on above: Performed By: #### L 100.0100, L502.0250, L501.9520, L506.1000, L500.4100, L500.4050, L501.9985 ####[facility] [address] [place], [address] Basophils/100 WBC (Bld) 0.5 % Normal 0-1 [facility] Comment on above: Performed By: #### L 100.0100, L502.0250, L501.9520, L506.1000, L500.4100, L500.4050, L501.9985 ####[facility] [address] [place], [address] Eosinophils/100 WBC (Bld) 2.6 % Normal 0-5 [facility] Comment on above: Performed By: #### L 100.0100, L502.0250, L501.9520, L506.1000, L500.4100, L500.4050, L501.9985 ####[facility] [address] [place], [address] Erythrocyte distribution width (RBC) [Ratio] 13.6 % Normal 11.6-14.6 [facility] Comment on above: Performed By: #### L 100.0100, L502.0250, L501.9520, L506.1000, L500.4100, L500.4050, L501.9985 ####[facility] [address] [place], [address] Hematocrit (Bld) [Volume fraction] 31.9 % Low 37-47 [facility] Comment on above: Performed By: #### L 100.0100, L502.0250, L501.9520, L506.1000, L500.4100, L500.4050, L501.9985 ####[facility] [address] [place], [address] Hemoglobin (Bld) [Mass/Vol] 11.4 g/dL Low 12.0-15.0 [facility] Comment on above: Performed By: #### L 100.0100, L502.0250, L501.9520, L506.1000, L500.4100, L500.4050, L501.9985 ####[facility] [address] [place], [address] IG% 0.200 Normal 0.0-0.9 [facility] Comment on above: Result Comment: IG% - Immature Granulocytes (promyelocytes, myelocytes andmetamyelocytes) > 1% indicates that a LEFT SHIFT is Present. Performed By: #### L 100.0100, L502.0250, L501.9520, L506.1000, L500.4100, L500.4050, L501.9985 ####[facility] [address] [place], [address] Lymphocytes/100 WBC (Bld) 33.8 % Normal 19-41 [facility] Comment on above: Performed By: #### L 100.0100, L502.0250, L501.9520, L506.1000, L500.4100, L500.4050, L501.9985 ####[facility] [address] [place], [address] MCH (RBC) [Entitic mass] 31.6 pg Normal 27.0-32.0 [facility] Comment on above: Performed By: #### L 100.0100, L502.0250, L501.9520, L506.1000, L500.4100, L500.4050, L501.9985 ####[facility] [address] [place], [address] MCHC (RBC) [Mass/Vol] 35.7 g/dL Normal 32-36 [facility] Comment on above: Performed By: #### L 100.0100, L502.0250, L501.9520, L506.1000, L500.4100, L500.4050, L501.9985 ####[facility] [address] [place], [address] MCV (RBC) [Entitic vol] 88.4 fL Normal 81-99 [facility] Comment on above: Performed By: #### L 100.0100, L502.0250, L501.9520, L506.1000, L500.4100, L500.4050, L501.9985 ####[facility] [address] [place], [address] Monocytes/100 WBC (Bld) 9.6 % Normal 0-10 [facility] Comment on above: Performed By: #### L 100.0100, L502.0250, L501.9520, L506.1000, L500.4100, L500.4050, L501.9985 ####[facility] [address] [place], [address] Neutrophils/100 WBC (Bld) 53.3 % Normal 47-70 [facility] Comment on above: Performed By: #### L 100.0100, L502.0250, L501.9520, L506.1000, L500.4100, L500.4050, L501.9985 ####[facility] [address] [place], [address] Nucleated RBC (Bld) [#/Vol] 0 10*3/uL Normal 0-5 [facility] Comment on above: Performed By: #### L 100.0100, L502.0250, L501.9520, L506.1000, L500.4100, L500.4050, L501.9985 ####[facility] [address] [place], [address] Platelet mean volume (Bld) [Entitic vol] 10.0 fL Normal 6.2-12.0 [facility] Comment on above: Performed By: #### L 100.0100, L502.0250, L501.9520, L506.1000, L500.4100, L500.4050, L501.9985 ####[facility] [address] [place], [address] Platelets (Bld) [#/Vol] 225 10*3/uL Normal 150-450 [facility] Comment on above: Performed By: #### L 100.0100, L502.0250, L501.9520, L506.1000, L500.4100, L500.4050, L501.9985 ####[facility] [address] [place], [address] RBC (Bld) [#/Vol] 3.61 10*6/uL Low 4.2-5.4 [facility] Comment on above: Performed By: #### L 100.0100, L502.0250, L501.9520, L506.1000, L500.4100, L500.4050, L501.9985 ####[facility] [address] [place], [address] RDW SD 42.6 fl Normal 35.1-43.9 [facility] Comment on above: Performed By: #### L 100.0100, L502.0250, L501.9520, L506.1000, L500.4100, L500.4050, L501.9985 ####[facility] [address] [place], [address] WBC (Bld) [#/Vol] 8.6 10*3/uL Normal 4.4-11.0 [facility] Comment on above: Performed By: #### L 100.0100, L502.0250, L501.9520, L506.1000, L500.4100, L500.4050, L501.9985 ####[facility] [address] [place], [address] Carbon dioxide measurementOr dered By: Candelario Santana on 09-25-2024 CO2 [Moles/Vol] 24.0 mmol/L 21.0-32.0 [facility] Chloride measurementOrdered By: Candelario Santana on 09-25-2024 Chloride [Moles/Vol] 104 mmol/L 98-107 [facility] Comprehensive Metabolic Prof ilon 09-25-2024 Albumin [Mass/Vol] 3.2 g/dL Normal 3.2-5.0 [facility] Comment on above: Performed By: #### L 100.0100, L502.0250, L501.9520, L506.1000, L500.4100, L500.4050, L501.9985 ####[facility] [address] [place], [address] Albumin/Globulin [Mass ratio] 0.7 {ratio} Low 0.9-2.4 [facility] Comment on above: Performed By: #### L 100.0100, L502.0250, L501.9520, L506.1000, L500.4100, L500.4050, L501.9985 ####[facility] [address] [place], [address] ALK P 89 U/L Normal 45-117 [facility] Comment on above: Performed By: #### L 100.0100, L502.0250, L501.9520, L506.1000, L500.4100, L500.4050, L501.9985 ####[facility] [address] [place], [address] ALT [Catalytic activity/Vol] 18 U/L Normal 13-56 [facility] Comment on above: Performed By: #### L 100.0100, L502.0250, L501.9520, L506.1000, L500.4100, L500.4050, L501.9985 ####[facility] [address] [place], [address] AST [Catalytic activity/Vol] 26 U/L Normal 15-37 [facility] Comment on above: Performed By: #### L 100.0100, L502.0250, L501.9520, L506.1000, L500.4100, L500.4050, L501.9985 ####[facility] [address] [place], [address] Bilirubin [Mass/Vol] 1.10 mg/dL High 0.20-1.00 [facility] Comment on above: Result Comment: For patients on eltrombopag therapy, use of Dimension [place] TBIL is not recommended. Performed By: #### L 100.0100, L502.0250, L501.9520, L506.1000, L500.4100, L500.4050, L501.9985 ####[facility] [address] [place], [address] BUN/CRE 17.2 RATIO Normal 10-20 [facility] Comment on above: Performed By: #### L 100.0100, L502.0250, L501.9520, L506.1000, L500.4100, L500.4050, L501.9985 ####[facility] [address] [place], [address] CA,Total 9.0 mg/dL Normal 8.5-10.1 [facility] Comment on above: Performed By: #### L 100.0100, L502.0250, L501.9520, L506.1000, L500.4100, L500.4050, L501.9985 ####[facility] [address] [place], [address] Chloride [Moles/Vol] 104 mmol/L Normal 98-107 [facility] Comment on above: Performed By: #### L 100.0100, L502.0250, L501.9520, L506.1000, L500.4100, L500.4050, L501.9985 ####[facility] [address] [place], [address] CO2 [Moles/Vol] 24.0 mmol/L Normal 21.0-32.0 [facility] Comment on above: Performed By: #### L 100.0100, L502.0250, L501.9520, L506.1000, L500.4100, L500.4050, L501.9985 ####[facility] [address] [place], [address] Creatinine [Mass/Vol] 0.87 mg/dL Normal 0.55-1.02 [facility] Comment on above: Result Comment: The validity of the calculated GFR GFRAA in patients over70 years has not been determined. Clinical correlation isessential. Performed By: #### L 100.0100, L502.0250, L501.9520, L506.1000, L500.4100, L500.4050, L501.9985 ####[facility] [address] [place], [address] EST GFR - AA 81 mL/min Normal >60 [facility] Comment on above: Result Comment: Afri can [place]an GFR Calc Performed By: #### L 100.0100, L502.0250, L501.9520, L506.1000, L500.4100, L500.4050, L501.9985 ####[facility] [address] [place], [address] GAP 9 Normal 5-15 [facility] Comment on above: Performed By: #### L 100.0100, L502.0250, L501.9520, L506.1000, L500.4100, L500.4050, L501.9985 ####[facility] [address] [place], [address] GFR/1.73 sq M.predicted among non-blacks MDRD (S/P/Bld) [Vol rate/Area] 67 mL/min/{1.73_m2} Normal >60 [facility] Comment on above: Result Comment: Non- GFR Calc Performed By: #### L 100.0100, L502.0250, L501.9520, L506.1000, L500.4100, L500.4050, L501.9985 ####[facility] [address] [place], [address] Globulin (S) [Mass/Vol] 4.3 g/dL High 2.2-4.2 [facility] Comment on above: Performed By: #### L 100.0100, L502.0250, L501.9520, L506.1000, L500.4100, L500.4050, L501.9985 ####[facility] [address] [place], [address] Glucose [Mass/Vol] 176 mg/dL High 74-106 [facility] Comment on above: Result Comment: Fast ing Glucose result greater than or equal to 126 mg/dLsuggests DIABETES MELLITUS per A.D.A. criteria. Performed By: #### L 100.0100, L502.0250, L501.9520, L506.1000, L500.4100, L500.4050, L501.9985 ####[facility] [address] [place], [address] Potassium [Moles/Vol] 3.3 mmol/L Low 3.5-5.1 [facility] Comment on above: Performed By: #### L 100.0100, L502.0250, L501.9520, L506.1000, L500.4100, L500.4050, L501.9985 ####[facility] [address] [place], [address] Sodium [Moles/Vol] 137 mmol/L Normal 136-145 [facility] Comment on above: Performed By: #### L 100.0100, L502.0250, L501.9520, L506.1000, L500.4100, L500.4050, L501.9985 ####[facility] [address] [place], [address] T PROT 7.5 g/dL Normal 6.4-8.2 [facility] Comment on above: Performed By: #### L 100.0100, L502.0250, L501.9520, L506.1000, L500.4100, L500.4050, L501.9985 ####[facility] [address] [place], [address] Urea nitrogen [Mass/Vol] 15 mg/dL Normal 7-18 [facility] Comment on above: Performed By: #### L 100.0100, L502.0250, L501.9520, L506.1000, L500.4100, L500.4050, L501.9985 ####[facility] [address] [place], [place], [address] Eosinophil percentageOrdered By: Candelario Santana on 09-25-2024 Eosinophils/100 WBC (Bld) 2.6 % 0-5 [facility] Erythrocyte distribution wid th ratioOrdered By: Candelario Santana on 09-25-2024 Erythrocyte distribution width (RBC) [Ratio] 13.6 % 11.6-14.6 [facility] Erythrocyte distribution wid th standard deviationOrdered By: Candelario Santana on 09-25-2024 Erythrocyte distribution width (RBC) [Ratio] 42.6 fl 35.1-43.9 [facility] Glomerular filtration rate ( GFR) estimationOrdered By: Candelario Santana on 09-25-2024 GFR/1.73 sq M.predicted among non-blacks MDRD (S/P/Bld) [Vol rate/Area] 67 mL/min/{1.73_m2} >60 [facility] Comment on above: Non- GFR Calc Glucose measurementOrdered B y: Candelario Santana on 09-25-2024 Glucose [Mass/Vol] 176 mg/dL High 74-106 [facility] Comment on above: Fasting Glucose resu lt greater than or equal to 126 mg/dL suggests DIABETES MELLITUS per A.D.A. criteria. Hematocrit Auto (Bld) [Volum e fraction]Ordered By: Candelario Santana on 09-25-2024 Hematocrit (Bld) [Volume fraction] 31.9 % Low 37-47 [facility] Hemoglobin A1c percentageOrd ered By: Candelario Santana on 09-25-2024 HbA1c (Bld) [Mass fraction] 4.7 % Normal 3.8-5.6 [facility] Comment on above: Normal < 5.7 % Predi abetic 5.7 - 6.4 % Diabetic >or= 6.5 % Please note range changes. Result Comment: Norm al < 5.7 % Prediabetic 5.7 - 6.4 % Diabetic >or= 6.5 % Please note range changes. Performed By: #### L 100.0100, L502.0250, L501.9520, L506.1000, L500.4100, L500.4050, L501.9985 ####[facility] [address] [place], [address] Hemoglobin measurementOrdere d By: Candelario Santana on 09-25-2024 Hemoglobin (Bld) [Mass/Vol] 11.4 g/dL Low 12.0-15.0 [facility] High density lipoprotein (HD L) measurementOrdered By: Candelario Santana on 09-25-2024 Cholesterol in HDL [Mass/Vol] 50 mg/dL >40 [facility] Comment on above: The drugs N-Acetylcy steine and Metamizole may falsely depress this assay. Reference Range HDL <40 mg/dL Low HDL Cholesterol HDL >or= 60 mg/dL High HDL Cholesterol Immature granulocytes/100 WB C Auto (Bld)Ordered By: Candelario Santana on 09-25-2024 Immature granulocytes/100 WBC (Bld) 0.200 % 0.0-0.9 [facility] Comment on above: IG% - Immature Granu locytes (promyelocytes, myelocytes and metamyelocytes) > 1% indicates that a LEFT SHIFT is Present. Laboratory - Chemistry and C hemistry - challengeOrdered By: Candelario Santana on 09-25-2024 AST [Catalytic activity/Vol] 26 U/L 15-37 [facility] Lipid Profileon 09-25-2024 Cholesterol [Mass/Vol] 158 mg/dL Normal 200 [facility] Comment on above: Result Comment: <200 mg/dL Desirable 200-240 mg/dL Borderline >240 mg/dL High Risk Performed By: #### L 100.0100, L502.0250, L501.9520, L506.1000, L500.4100, L500.4050, L501.9985 ####[facility] [address] [place], [address] Cholesterol in HDL [Mass/Vol] 50 mg/dL Normal [facility] Comment on above: Result Comment: The drugs N-Acetylcysteine and Metamizole may falselydepress this assay. Reference Range HDL <40 mg/dL Low HDL Cholesterol HDL >or= 60 mg/dL High HDL Cholesterol Performed By: #### L 100.0100, L502.0250, L501.9520, L506.1000, L500.4100, L500.4050, L501.9985 ####[facility] [address] [place], [address] Cholesterol in LDL [Mass/Vol] 85 mg/dL Normal 0-130 [facility] Comment on above: Performed By: #### L 100.0100, L502.0250, L501.9520, L506.1000, L500.4100, L500.4050, L501.9985 ####[facility] [address] [place], [address] Cholesterol in VLDL [Mass/Vol] 23 mg/dL Normal 5-40 [facility] Comment on above: Performed By: #### L 100.0100, L502.0250, L501.9520, L506.1000, L500.4100, L500.4050, L501.9985 ####[facility] [address] [place], [address] Triglyceride [Mass/Vol] 114 mg/dL Normal [facility] Comment on above: Result Comment: The drugs N-Acetylcysteine and Metamizole may falselydepress this assay.Serum Triglycerides Reference Interval Normal <150 mg/dL Borderline high 150 - 199 mg/dL High 200 - 499 mg/dL Very High > or = 500 mg/dL Performed By: #### L 100.0100, L502.0250, L501.9520, L506.1000, L500.4100, L500.4050, L501.9985 ####[facility] [address] [place], [place], [id number] Low density lipoprotein (LDL ) cholesterol measurementOrdered By: Candelario Santana on 09-25-2024 Cholesterol in LDL [Mass/Vol] 85 mg/dL 0-130 [facility] MCV (mean corpuscular volume ) determinationOrdered By: Candelario Santana on 09-25-2024 MCV (RBC) [Entitic vol] 88.4 fL 81-99 [facility] Mean corpuscular hemoglobin (MCH) determinationOrdered By: Candelario Santana on 09-25-2024 MCH (RBC) [Entitic mass] 31.6 pg 27.0-32.0 [facility] Mean corpuscular hemoglobin concentration (MCHC) determinationOrdered By: Candelario Mxa on 09-25-2024 MCHC (RBC) [Mass/Vol] 35.7 g/dL 32-36 [facility] Mean platelet volume determi nationOrdered By: Candelario Santana on 09-25-2024 Platelet mean volume (Bld) [Entitic vol] 10.0 fL 6.2-12.0 [facility] Microalb:Creat Ratio,Random URon 09-25-2024 MALB:CRE Normal <30 mg/g CRE [facility] Comment on above: Result Comment: UTO Performed By: #### L 100.0100, L502.0250, L501.9520, L506.1000, L500.4100, L500.4050, L501.9985 ####[facility] [address] [place], [place], [id number] MICROALBUMIN,UR Normal NO RANGE EST. [facility] Comment on above: Result Comment: UTO Performed By: #### L 100.0100, L502.0250, L501.9520, L506.1000, L500.4100, L500.4050, L501.9985 ####[facility] [address] [place], [address] Monocyte percentageOrdered B y: Candelario Santana on 09-25-2024 Monocytes/100 WBC (Bld) 9.6 % 0-10 [facility] Neutrophil percentageOrdered By: Candelario Santana on 09-25-2024 Neutrophils/100 WBC (Bld) 53.3 % 47-70 [facility] Nucleated red blood cell per centageOrdered By: Candelario Santana on 09-25-2024 Nucleated RBC/100 WBC (Bld) [Ratio] 0 % 0-5 [facility] Platelet countOrdered By: Ben Santana on 09-25-2024 Platelets (Bld) [#/Vol] 225 10*3/uL 150-450 [facility] Potassium measurementOrdered By: Candelario Santana on 09-25-2024 Potassium [Moles/Vol] 3.3 mmol/L Low 3.5-5.1 [facility] RBC Auto (Bld) [#/Vol]Ordere d By: Candelario Santana on 09-25-2024 RBC (Bld) [#/Vol] 3.61 10*6/uL Low 4.2-5.4 [facility] Serum anion gap measurementO rdered By: Candelario Santana 09-25-2024 Anion gap [Moles/Vol] 9 mmol/L 5-15 [facility] Serum globulin measurementOr dered By: Candelario Santana 09-25-2024 Globulin (S) [Mass/Vol] 4.3 g/dL High 2.2-4.2 [facility] Serum or plasma alanine cornejo otransferase (ALT) measurementOrdered By: Candelario Santana 09-25-2024 ALT [Catalytic activity/Vol] 18 U/L 13-56 [facility] Serum or plasma albumin sabino urement (mass/volume)Ordered By: Candelario Santnaa 09-25-2024 Albumin [Mass/Vol] 3.2 g/dL 3.2-5.0 [facility] Serum or plasma alkaline shaista sphatase measurementOrdered By: Candelario Santana on 09-25-2024 ALP [Catalytic activity/Vol] 89 U/L 45-117 [facility] Serum or plasma calcium sabino urement (mass/volume)Ordered By: Candelario Santana on 09-25-2024 Calcium [Mass/Vol] 9.0 mg/dL 8.5-10.1 [facility] Serum or plasma cholesterol measurement (mass/volume)Ordered By: Candelario Santana on 09-25-2024 Cholesterol [Mass/Vol] 158 mg/dL <200 [facility] Comment on above: <200 mg/dL Desirable 200-240 mg/dL Borderline >240 mg/dL High Risk Serum or plasma creatinine m easurement (mass/volume)Ordered By: Candelario Santana on 09-25-2024 Creatinine [Mass/Vol] 0.87 mg/dL 0.55-1.02 [facility] Comment on above: The validity of the calculated GFR & GFRAA in patients over 70 years has not been determined. Clinical correlation is essential. Serum or plasma thyroid stim ulating hormone (TSH) measurement (units/volume)Ordered By: Candelario Santana on 09-25-2024 TSH Qn 5.250 uIU/mL High 0.358-3.740 [facility] Serum or plasma urea nitroge n measurement (mass/volume)Ordered By: Candelario Santana on 09-25-2024 Urea nitrogen [Mass/Vol] 15 mg/dL 7-18 [facility] Sodium levelOrdered By: Candelario Santana 09-25-2024 Sodium [Moles/Vol] 137 mmol/L 136-145 [facility] Thyroid Stim Hormone (TSH)on 09-25-2024 TSH 5.250 uIU/mL High 0.358-3.740 [facility] Comment on above: Performed By: #### L 100.0100, L502.0250, L501.9520, L506.1000, L500.4100, L500.4050, L501.9985 ####[facility] [address] [place], [address] Total proteinOrdered By: Candelario Santana 09-25-2024 Protein [Mass/Vol] 7.5 g/dL 6.4-8.2 [facility] Triglycerides measurementOrd ered By: Candelario Santana on 09-25-2024 Triglyceride [Mass/Vol] 114 mg/dL <199 [facility] Comment on above: The drugs N-Acetylcy steine and Metamizole may falsely depress this assay.Serum Triglycerides Reference Interval Normal <150 mg/dL Borderline high 150 - 199 mg/dL High 200 - 499 mg/dL Very High > or = 500 mg/dL Very low density lipoprotein (VLDL) cholesterol measurementOrdered By: Candelario Santana on 09-25-2024 Very low density lipoprotein (VLDL) cholesterol measurement 23 mg/dL 5-40 [facility] Vitamin D,25 Hydroxyon 09-25 Vitamin D 25-OH 26.7 ng/mL Normal [facility] Comment on above: Result Comment: Jojo min D 25(OH) Status Range Deficiency <20 ng/mL (50nmol/L) Insufficiency 20 - 30 ng/mL (50 - 75 nmol/L) Sufficiency 30 - 100 ng/mL (75 - 250 nmol/L) Toxicity >100 ng/mL (>250 nmol/L) Performed By: #### L 100.0100, L502.0250, L501.9520, L506.1000, L500.4100, L500.4050, L501.9985 ####[facility] [address] [place], [address] White blood cell (WBC) count Ordered By: Candelario Santana on 09-25-2024 WBC (Bld) [#/Vol] 8.6 10*3/uL 4.4-11.0 [facility] CBC W/Diff, Automatedon 10-3 Absolute Lymph 2.31 X10 3/uL Normal 0.83-4.51 [facility] Comment on above: Performed By: #### L 500.4100, L501.9520, L506.1000, L100.0100, L501.9985, L500.4050 ####[facility] [address] [place], [address] Absolute Neut 2.0 X10 3/uL Normal 2.0-7.7 [facility] Comment on above: Performed By: #### L 500.4100, L501.9520, L506.1000, L100.0100, L501.9985, L500.4050 ####[facility] [address] [place], [address] Basophils/100 WBC (Bld) 0.8 % Normal 0-1 [facility] Comment on above: Performed By: #### L 500.4100, L501.9520, L506.1000, L100.0100, L501.9985, L500.4050 ####[facility] [address] [place], [address] Eosinophils/100 WBC (Bld) 3.4 % Normal 0-5 [facility] Comment on above: Performed By: #### L 500.4100, L501.9520, L506.1000, L100.0100, L501.9985, L500.4050 ####[facility] [address] [place], [address] Erythrocyte distribution width (RBC) [Ratio] 14.0 % Normal 11.6-14.6 [facility] Comment on above: Performed By: #### L 500.4100, L501.9520, L506.1000, L100.0100, L501.9985, L500.4050 ####[facility] [address] [place], [address] Hematocrit (Bld) [Volume fraction] 31.8 % Low 37-47 [facility] Comment on above: Performed By: #### L 500.4100, L501.9520, L506.1000, L100.0100, L501.9985, L500.4050 ####[facility] [address] [place], [address] Hemoglobin (Bld) [Mass/Vol] 10.9 g/dL Low 12.0-15.0 [facility] Comment on above: Performed By: #### L 500.4100, L501.9520, L506.1000, L100.0100, L501.9985, L500.4050 ####[facility] [address] [place], [address] IG% 0.200 Normal 0.0-0.9 [facility] Comment on above: Result Comment: IG% - Immature Granulocytes (promyelocytes, myelocytes andmetamyelocytes) > 1% indicates that a LEFT SHIFT is Present. Performed By: #### L 500.4100, L501.9520, L506.1000, L100.0100, L501.9985, L500.4050 ####[facility] [address] [place], [address] Lymphocytes/100 WBC (Bld) 45.8 % High 19-41 [facility] Comment on above: Performed By: #### L 500.4100, L501.9520, L506.1000, L100.0100, L501.9985, L500.4050 ####[facility] [address] [place], [address] MCH (RBC) [Entitic mass] 30.8 pg Normal 27.0-32.0 [facility] Comment on above: Performed By: #### L 500.4100, L501.9520, L506.1000, L100.0100, L501.9985, L500.4050 ####[facility] [address] [place], [address] MCHC (RBC) [Mass/Vol] 34.3 g/dL Normal 32-36 [facility] Comment on above: Performed By: #### L 500.4100, L501.9520, L506.1000, L100.0100, L501.9985, L500.4050 ####[facility] [address] [place], [address] MCV (RBC) [Entitic vol] 89.8 fL Normal 81-99 [facility] Comment on above: Performed By: #### L 500.4100, L501.9520, L506.1000, L100.0100, L501.9985, L500.4050 ####[facility] [address] [place], [address] Monocytes/100 WBC (Bld) 9.5 % Normal 0-10 [facility] Comment on above: Performed By: #### L 500.4100, L501.9520, L506.1000, L100.0100, L501.9985, L500.4050 ####[facility] [address] [place], [address] Neutrophils/100 WBC (Bld) 40.3 % Low 47-70 [facility] Comment on above: Performed By: #### L 500.4100, L501.9520, L506.1000, L100.0100, L501.9985, L500.4050 ####[facility] [address] [place], [address] Nucleated RBC (Bld) [#/Vol] 0 10*3/uL Normal 0-5 [facility] Comment on above: Performed By: #### L 500.4100, L501.9520, L506.1000, L100.0100, L501.9985, L500.4050 ####[facility] [address] [place], [address] Platelet mean volume (Bld) [Entitic vol] 9.8 fL Normal 6.2-12.0 [facility] Comment on above: Performed By: #### L 500.4100, L501.9520, L506.1000, L100.0100, L501.9985, L500.4050 ####[facility] [address] [place], [address] Platelets (Bld) [#/Vol] 190 10*3/uL Normal 150-450 [facility] Comment on above: Performed By: #### L 500.4100, L501.9520, L506.1000, L100.0100, L501.9985, L500.4050 ####[facility] [address] [place], [address] RBC (Bld) [#/Vol] 3.54 10*6/uL Low 4.2-5.4 [facility] Comment on above: Performed By: #### L 500.4100, L501.9520, L506.1000, L100.0100, L501.9985, L500.4050 ####[facility] [address] [place], [address] RDW SD 46.0 fl High 35.1-43.9 [facility] Comment on above: Performed By: #### L 500.4100, L501.9520, L506.1000, L100.0100, L501.9985, L500.4050 ####[facility] [address] [place], [address] WBC (Bld) [#/Vol] 5.0 10*3/uL Normal 4.4-11.0 [facility] Comment on above: Performed By: #### L 500.4100, L501.9520, L506.1000, L100.0100, L501.9985, L500.4050 ####[facility] [address] [place], [address] Comprehensive Metabolic Prof [facility] 06-21-2024 Albumin [Mass/Vol] 3.1 g/dL Low 3.2-5.0 [facility] Comment on above: Performed By: #### L 500.4100, L501.9520, L506.1000, L100.0100, L501.9985, L500.4050 ####[facility] [address] [place], [address] Albumin/Globulin [Mass ratio] 0.7 {ratio} Low 0.9-2.4 [facility] Comment on above: Performed By: #### L 500.4100, L501.9520, L506.1000, L100.0100, L501.9985, L500.4050 ####[facility] [address] [place], [address] ALK P 76 U/L Normal 45-117 [facility] Comment on above: Performed By: #### L 500.4100, L501.9520, L506.1000, L100.0100, L501.9985, L500.4050 ####[facility] [address] [place], [address] ALT [Catalytic activity/Vol] 15 U/L Normal 13-56 [facility] Comment on above: Performed By: #### L 500.4100, L501.9520, L506.1000, L100.0100, L501.9985, L500.4050 ####[facility] [address] [place], [address] AST [Catalytic activity/Vol] 24 U/L Normal 15-37 [facility] Comment on above: Performed By: #### L 500.4100, L501.9520, L506.1000, L100.0100, L501.9985, L500.4050 ####[facility] [address] [place], [address] Bilirubin [Mass/Vol] 1.40 mg/dL High 0.20-1.00 [facility] Comment on above: Result Comment: For patients on eltrombopag therapy, use of Dimension [place] TBIL is not recommended. Performed By: #### L 500.4100, L501.9520, L506.1000, L100.0100, L501.9985, L500.4050 ####[facility] [address] [place], [address] BUN/CRE 12.6 RATIO Normal 10-20 [facility] Comment on above: Performed By: #### L 500.4100, L501.9520, L506.1000, L100.0100, L501.9985, L500.4050 ####[facility] [address] [place], [address] CA,Total 9.0 mg/dL Normal 8.5-10.1 [facility] Comment on above: Performed By: #### L 500.4100, L501.9520, L506.1000, L100.0100, L501.9985, L500.4050 ####[facility] [address] [place], [address] Chloride [Moles/Vol] 110 mmol/L High 98-107 [facility] Comment on above: Performed By: #### L 500.4100, L501.9520, L506.1000, L100.0100, L501.9985, L500.4050 ####[facility] [address] [place], [address] CO2 [Moles/Vol] 25.0 mmol/L Normal 21.0-32.0 [facility] Comment on above: Performed By: #### L 500.4100, L501.9520, L506.1000, L100.0100, L501.9985, L500.4050 ####[facility] [address] [place], [address] Creatinine [Mass/Vol] 0.64 mg/dL Normal 0.55-1.02 [facility] Comment on above: Result Comment: The validity of the calculated GFR GFRAA in patients over70 years has not been determined. Clinical correlation isessential. Performed By: #### L 500.4100, L501.9520, L506.1000, L100.0100, L501.9985, L500.4050 ####[facility] [address] [place], [address] EST GFR - AA 117 mL/min Normal >60 [facility] Comment on above: Result Comment: Afri can [place]an GFR Calc Performed By: #### L 500.4100, L501.9520, L506.1000, L100.0100, L501.9985, L500.4050 ####[facility] [address] [place], [address] GAP 5 Normal 5-15 [facility] Comment on above: Performed By: #### L 500.4100, L501.9520, L506.1000, L100.0100, L501.9985, L500.4050 ####[facility] [address] [place], [address] GFR/1.73 sq M.predicted among non-blacks MDRD (S/P/Bld) [Vol rate/Area] 96 mL/min/{1.73_m2} Normal >60 [facility] Comment on above: Result Comment: Non- GFR Calc Performed By: #### L 500.4100, L501.9520, L506.1000, L100.0100, L501.9985, L500.4050 ####[facility] [address] [place], [address] Globulin (S) [Mass/Vol] 4.2 g/dL Normal 2.2-4.2 [facility] Comment on above: Performed By: #### L 500.4100, L501.9520, L506.1000, L100.0100, L501.9985, L500.4050 ####[facility] [address] [place], [address] Glucose [Mass/Vol] 124 mg/dL High 74-106 [facility] Comment on above: Result Comment: Fast ing Glucose result from 100 to 125 mg/dLsuggests IMPAIRED HOMEOSTASIS per A.D.A. criteria. Performed By: #### L 500.4100, L501.9520, L506.1000, L100.0100, L501.9985, L500.4050 ####[facility] [address] [place], [address] Potassium [Moles/Vol] 4.1 mmol/L Normal 3.5-5.1 [facility] Comment on above: Performed By: #### L 500.4100, L501.9520, L506.1000, L100.0100, L501.9985, L500.4050 ####[facility] [address] [place], [address] Sodium [Moles/Vol] 139 mmol/L Normal 136-145 [facility] Comment on above: Performed By: #### L 500.4100, L501.9520, L506.1000, L100.0100, L501.9985, L500.4050 ####[facility] [address] [place], [address] T PROT 7.3 g/dL Normal 6.4-8.2 [facility] Comment on above: Performed By: #### L 500.4100, L501.9520, L506.1000, L100.0100, L501.9985, L500.4050 ####[facility] [address] [place], [address] Urea nitrogen [Mass/Vol] 8 mg/dL Normal 7-18 [facility] Comment on above: Performed By: #### L 500.4100, L501.9520, L506.1000, L100.0100, L501.9985, L500.4050 ####[facility] [address] [place], [address] Hemoglobin A1con 06-21-2024 HbA1c (Bld) [Mass fraction] 6.9 % High 3.8-5.6 [facility] Comment on above: Result Comment: Norm al < 5.7 % Prediabetic 5.7 - 6.4 % Diabetic >or= 6.5 % Please note range changes. Performed By: #### L 500.4100, L501.9520, L506.1000, L100.0100, L501.9985, L500.4050 ####[facility] [address] [place], [address] Lipid Profileon 06-21-2024 Cholesterol [Mass/Vol] 156 mg/dL Normal 200 [facility] Comment on above: Result Comment: <200 mg/dL Desirable 200-240 mg/dL Borderline >240 mg/dL High Risk Performed By: #### L 500.4100, L501.9520, L506.1000, L100.0100, L501.9985, L500.4050 ####[facility] [address] [place], [address] Cholesterol in HDL [Mass/Vol] 50 mg/dL Normal [facility] Comment on above: Result Comment: The drugs N-Acetylcysteine and Metamizole may falselydepress this assay. Reference Range HDL <40 mg/dL Low HDL Cholesterol HDL >or= 60 mg/dL High HDL Cholesterol Performed By: #### L 500.4100, L501.9520, L506.1000, L100.0100, L501.9985, L500.4050 ####[facility] [address] [place], [address] Cholesterol in LDL [Mass/Vol] 88 mg/dL Normal 0-130 [facility] Comment on above: Performed By: #### L 500.4100, L501.9520, L506.1000, L100.0100, L501.9985, L500.4050 ####[facility] [address] [place], [address] Cholesterol in VLDL [Mass/Vol] 18 mg/dL Normal 5-40 [facility] Comment on above: Performed By: #### L 500.4100, L501.9520, L506.1000, L100.0100, L501.9985, L500.4050 ####[facility] [address] [place], [address] Triglyceride [Mass/Vol] 90 mg/dL Normal [facility] Comment on above: Result Comment: The drugs N-Acetylcysteine and Metamizole may falselydepress this assay.Serum Triglycerides Reference Interval Normal <150 mg/dL Borderline high 150 - 199 mg/dL High 200 - 499 mg/dL Very High > or = 500 mg/dL Performed By: #### L 500.4100, L501.9520, L506.1000, L100.0100, L501.9985, L500.4050 ####[facility] [address] [place], [address] Thyroid Stim Hormone (TSH)on 06-21-2024 TSH 1.910 uIU/mL Normal 0.358-3.740 [facility] Comment on above: Performed By: #### L 500.4100, L501.9520, L506.1000, L100.0100, L501.9985, L500.4050 ####[facility] [address] [place], [address] Vitamin D,25 Hydroxyon 06-21 Vitamin D 25-OH 16.8 ng/mL Normal [facility] Comment on above: Result Comment: Jojo min D 25(OH) Status Range Deficiency <20 ng/mL (50nmol/L) Insufficiency 20 - 30 ng/mL (50 - 75 nmol/L) Sufficiency 30 - 100 ng/mL (75 - 250 nmol/L) Toxicity >100 ng/mL (>250 nmol/L) Performed By: #### L 500.4100, L501.9520, L506.1000, L100.0100, L501.9985, L500.4050 ####[facility] [address] [place], [address] CBC W/Diff, Automatedon 07-3 0-2024 Absolute Lymph 2.55 X10 3/uL Normal 0.83-4.51 [facility] Comment on above: Performed By: #### L 500.4050, L501.9520, L500.4100, L506.1000, L501.9985, L100.0100 ####[facility] [address] [place], [address] Absolute Neut 5.1 X10 3/uL Normal 2.0-7.7 [facility] Comment on above: Performed By: #### L 500.4050, L501.9520, L500.4100, L506.1000, L501.9985, L100.0100 ####[facility] [address] [place], [address] Basophils/100 WBC (Bld) 0.5 % Normal 0-1 [facility] Comment on above: Performed By: #### L 500.4050, L501.9520, L500.4100, L506.1000, L501.9985, L100.0100 ####[facility] [address] [place], [address] Eosinophils/100 WBC (Bld) 1.5 % Normal 0-5 [facility] Comment on above: Performed By: #### L 500.4050, L501.9520, L500.4100, L506.1000, L501.9985, L100.0100 ####[facility] [address] [place], [address] Erythrocyte distribution width (RBC) [Ratio] 13.1 % Normal 11.6-14.6 [facility] Comment on above: Performed By: #### L 500.4050, L501.9520, L500.4100, L506.1000, L501.9985, L100.0100 ####[facility] [address] [place], [address] Hematocrit (Bld) [Volume fraction] 35.2 % Low 37-47 [facility] Comment on above: Performed By: #### L 500.4050, L501.9520, L500.4100, L506.1000, L501.9985, L100.0100 ####[facility] [address] [place] [place], [address] Hemoglobin (Bld) [Mass/Vol] 12.2 g/dL Normal 12.0-15.0 [facility] Comment on above: Performed By: #### L 500.4050, L501.9520, L500.4100, L506.1000, L501.9985, L100.0100 ####[facility] [address] [place], [address] IG% 0.400 Normal 0.0-0.9 [facility] Comment on above: Result Comment: IG% - Immature Granulocytes (promyelocytes, myelocytes andmetamyelocytes) > 1% indicates that a LEFT SHIFT is Present. Performed By: #### L 500.4050, L501.9520, L500.4100, L506.1000, L501.9985, L100.0100 ####[facility] [address] [place], [address] Lymphocytes/100 WBC (Bld) 30.2 % Normal 19-41 [facility] Comment on above: Performed By: #### L 500.4050, L501.9520, L500.4100, L506.1000, L501.9985, L100.0100 ####[facility] [address] [place], [address] MCH (RBC) [Entitic mass] 29.7 pg Normal 27.0-32.0 [facility] Comment on above: Performed By: #### L 500.4050, L501.9520, L500.4100, L506.1000, L501.9985, L100.0100 ####[facility] [address] [place], [address] MCHC (RBC) [Mass/Vol] 34.7 g/dL Normal 32-36 [facility] Comment on above: Performed By: #### L 500.4050, L501.9520, L500.4100, L506.1000, L501.9985, L100.0100 ####[facility] [address] [place], [address] MCV (RBC) [Entitic vol] 85.6 fL Normal 81-99 [facility] Comment on above: Performed By: #### L 500.4050, L501.9520, L500.4100, L506.1000, L501.9985, L100.0100 ####[facility] [address] [place], [address] Monocytes/100 WBC (Bld) 7.1 % Normal 0-10 [facility] Comment on above: Performed By: #### L 500.4050, L501.9520, L500.4100, L506.1000, L501.9985, L100.0100 ####[facility] [address] [place], [address] Neutrophils/100 WBC (Bld) 60.3 % Normal 47-70 [facility] Comment on above: Performed By: #### L 500.4050, L501.9520, L500.4100, L506.1000, L501.9985, L100.0100 ####[facility] [address] [place], [address] Nucleated RBC (Bld) [#/Vol] 0 10*3/uL Normal 0-5 [facility] Comment on above: Performed By: #### L 500.4050, L501.9520, L500.4100, L506.1000, L501.9985, L100.0100 ####[facility] [address] [place], [address] Platelet mean volume (Bld) [Entitic vol] 10.0 fL Normal 6.2-12.0 [facility] Comment on above: Performed By: #### L 500.4050, L501.9520, L500.4100, L506.1000, L501.9985, L100.0100 ####[facility] [address] [place], [address] Platelets (Bld) [#/Vol] 195 10*3/uL Normal 150-450 [facility] Comment on above: Performed By: #### L 500.4050, L501.9520, L500.4100, L506.1000, L501.9985, L100.0100 ####[facility] [address] [place], [address] RBC (Bld) [#/Vol] 4.11 10*6/uL Low 4.2-5.4 [facility] Comment on above: Performed By: #### L 500.4050, L501.9520, L500.4100, L506.1000, L501.9985, L100.0100 ####[facility] [address] [place], [address] RDW SD 40.5 fl Normal 35.1-43.9 [facility] Comment on above: Performed By: #### L 500.4050, L501.9520, L500.4100, L506.1000, L501.9985, L100.0100 ####[facility] [address] [place], [address] WBC (Bld) [#/Vol] 8.4 10*3/uL Normal 4.4-11.0 [facility] Comment on above: Performed By: #### L 500.4050, L501.9520, L500.4100, L506.1000, L501.9985, L100.0100 ####[facility] [address] [place], [address] Chest PA and Lateralon 03-21 Chest PA and Lateral Normal [facility] Comprehensive Metabolic Prof ilon 03-21-2024 Albumin [Mass/Vol] 3.2 g/dL Normal 3.2-5.0 [facility] Comment on above: Performed By: #### L 500.4050, L501.9520, L500.4100, L506.1000, L501.9985, L100.0100 ####[facility] [address] [place], [address] Albumin/Globulin [Mass ratio] 0.7 {ratio} Low 0.9-2.4 [facility] Comment on above: Performed By: #### L 500.4050, L501.9520, L500.4100, L506.1000, L501.9985, L100.0100 ####[facility] [address] [place], [address] ALK P 126 U/L High 45-117 [facility] Comment on above: Performed By: #### L 500.4050, L501.9520, L500.4100, L506.1000, L501.9985, L100.0100 ####[facility] [address] [place], [address] ALT [Catalytic activity/Vol] 16 U/L Normal 13-56 [facility] Comment on above: Performed By: #### L 500.4050, L501.9520, L500.4100, L506.1000, L501.9985, L100.0100 ####[facility] [address] [place], [address] AST [Catalytic activity/Vol] 31 U/L Normal 15-37 [facility] Comment on above: Performed By: #### L 500.4050, L501.9520, L500.4100, L506.1000, L501.9985, L100.0100 ####[facility] [address] [place], [address] Bilirubin [Mass/Vol] 1.20 mg/dL High 0.20-1.00 [facility] Comment on above: Result Comment: For patients on eltrombopag therapy, use of Dimension [place] TBIL is not recommended. Performed By: #### L 500.4050, L501.9520, L500.4100, L506.1000, L501.9985, L100.0100 ####[facility] [address] [place], [address] BUN/CRE 13.3 RATIO Normal 10-20 [facility] Comment on above: Performed By: #### L 500.4050, L501.9520, L500.4100, L506.1000, L501.9985, L100.0100 ####[facility] [address] [place], [address] CA,Total 9.5 mg/dL Normal 8.5-10.1 [facility] Comment on above: Performed By: #### L 500.4050, L501.9520, L500.4100, L506.1000, L501.9985, L100.0100 ####[facility] [address] [place], [address] Chloride [Moles/Vol] 100 mmol/L Normal 98-107 [facility] Comment on above: Performed By: #### L 500.4050, L501.9520, L500.4100, L506.1000, L501.9985, L100.0100 ####[facility] [address] [place], [address] CO2 [Moles/Vol] 26.0 mmol/L Normal 21.0-32.0 [facility] Comment on above: Performed By: #### L 500.4050, L501.9520, L500.4100, L506.1000, L501.9985, L100.0100 ####[facility] [address] [place], [place], [address] Creatinine [Mass/Vol] 0.75 mg/dL Normal 0.55-1.02 [facility] Comment on above: Result Comment: The validity of the calculated GFR GFRAA in patients over70 years has not been determined. Clinical correlation isessential. Performed By: #### L 500.4050, L501.9520, L500.4100, L506.1000, L501.9985, L100.0100 ####[facility] [address] [place], [place], [address] EST GFR - AA 96 mL/min Normal >60 [facility] Comment on above: Result Comment: Afri can [place]an GFR Calc Performed By: #### L 500.4050, L501.9520, L500.4100, L506.1000, L501.9985, L100.0100 ####[facility] [address] [place], [place], [address] GAP 9 Normal 5-15 [facility] Comment on above: Performed By: #### L 500.4050, L501.9520, L500.4100, L506.1000, L501.9985, L100.0100 ####[facility] [address] [place], [place], [address] GFR/1.73 sq M.predicted among non-blacks MDRD (S/P/Bld) [Vol rate/Area] 80 mL/min/{1.73_m2} Normal >60 [facility] Comment on above: Result Comment: Non- GFR Calc Performed By: #### L 500.4050, L501.9520, L500.4100, L506.1000, L501.9985, L100.0100 ####[facility] [address] [place], [address] Globulin (S) [Mass/Vol] 4.5 g/dL High 2.2-4.2 [facility] Comment on above: Performed By: #### L 500.4050, L501.9520, L500.4100, L506.1000, L501.9985, L100.0100 ####[facility] [address] [place], [address] Glucose [Mass/Vol] 313 mg/dL High 74-106 [facility] Comment on above: Result Comment: Gluc ose result greater than or equal to 200 mg/dLsuggests DIABETES MELLITUS per A.D.A. criteria. Performed By: #### L 500.4050, L501.9520, L500.4100, L506.1000, L501.9985, L100.0100 ####[facility] [address] [place], [address] Potassium [Moles/Vol] 3.7 mmol/L Normal 3.5-5.1 [facility] Comment on above: Performed By: #### L 500.4050, L501.9520, L500.4100, L506.1000, L501.9985, L100.0100 ####[facility] [address] [place], [address] Sodium [Moles/Vol] 135 mmol/L Low 136-145 [facility] Comment on above: Performed By: #### L 500.4050, L501.9520, L500.4100, L506.1000, L501.9985, L100.0100 ####[facility] [address] [place], [address] T PROT 7.7 g/dL Normal 6.4-8.2 [facility] Comment on above: Performed By: #### L 500.4050, L501.9520, L500.4100, L506.1000, L501.9985, L100.0100 ####[facility] [address] [place], [address] Urea nitrogen [Mass/Vol] 10 mg/dL Normal 7-18 [facility] Comment on above: Performed By: #### L 500.4050, L501.9520, L500.4100, L506.1000, L501.9985, L100.0100 ####[facility] [address] [place], [address] Hemoglobin A1con 03-21-2024 HbA1c (Bld) [Mass fraction] 7.6 % High 3.8-5.6 [facility] Comment on above: Result Comment: Norm al < 5.7 % Prediabetic 5.7 - 6.4 % Diabetic >or= 6.5 % Please note range changes. Performed By: #### L 500.4050, L501.9520, L500.4100, L506.1000, L501.9985, L100.0100 ####[facility] [address] [place], [address] Lipid Profileon 03-21-2024 Cholesterol [Mass/Vol] 176 mg/dL Normal 200 [facility] Comment on above: Result Comment: <200 mg/dL Desirable 200-240 mg/dL Borderline >240 mg/dL High Risk Performed By: #### L 500.4050, L501.9520, L500.4100, L506.1000, L501.9985, L100.0100 ####[facility] [address] [place], [address] Cholesterol in HDL [Mass/Vol] 56 mg/dL Normal [facility] Comment on above: Result Comment: The drugs N-Acetylcysteine and Metamizole may falselydepress this assay. Reference Range HDL <40 mg/dL Low HDL Cholesterol HDL >or= 60 mg/dL High HDL Cholesterol Performed By: #### L 500.4050, L501.9520, L500.4100, L506.1000, L501.9985, L100.0100 ####[facility] [address] [place], [address] Cholesterol in LDL [Mass/Vol] 104 mg/dL Normal 0-130 [facility] Comment on above: Performed By: #### L 500.4050, L501.9520, L500.4100, L506.1000, L501.9985, L100.0100 ####[facility] [address] [place], [address] Cholesterol in VLDL [Mass/Vol] 16 mg/dL Normal 5-40 [facility] Comment on above: Performed By: #### L 500.4050, L501.9520, L500.4100, L506.1000, L501.9985, L100.0100 ####[facility] [address] [place], [address] Triglyceride [Mass/Vol] 80 mg/dL Normal [facility] Comment on above: Result Comment: The drugs N-Acetylcysteine and Metamizole may falselydepress this assay.Serum Triglycerides Reference Interval Normal <150 mg/dL Borderline high 150 - 199 mg/dL High 200 - 499 mg/dL Very High > or = 500 mg/dL Performed By: #### L 500.4050, L501.9520, L500.4100, L506.1000, L501.9985, L100.0100 ####[facility] [address] [place], [address] Thyroid Stim Hormone (TSH)on 03-21-2024 TSH 4.82 uIU/mL High 0.358-3.74 [facility] Comment on above: Performed By: #### L 500.4050, L501.9520, L500.4100, L506.1000, L501.9985, L100.0100 ####[facility] [address] [place], [address] Vitamin D,25 Hydroxyon 03-21 Vitamin D 25-OH 33.4 ng/mL Normal [facility] Comment on above: Result Comment: Jojo min D 25(OH) Status Range Deficiency <20 ng/mL (50nmol/L) Insufficiency 20 - 30 ng/mL (50 - 75 nmol/L) Sufficiency 30 - 100 ng/mL (75 - 250 nmol/L) Toxicity >100 ng/mL (>250 nmol/L) Performed By: #### L 500.4050, L501.9520, L500.4100, L506.1000, L501.9985, L100.0100 ####[facility] [address] [place], [address] Absolute lymphocyte countOrd ered By: Candelario Santana on 12-20-2023 Lymphocytes Auto (Unsp spec) [#/Vol] 2.35 10*3/uL 0.83-4.51 [facility] Automated lymphocyte count a s percentage of total leukocytesOrdered By: Candelario Santana on 12-20-2023 Lymphocytes/100 WBC Auto (Unsp spec) 40.9 % 19-41 [facility] Basophil percentageOrdered B y: Candelario Santana on 12-20-2023 Basophils/100 WBC (Bld) 0.7 % 0-1 [facility] Bilirubin [Mass/Vol] 1.10 mg/dL 0.20-1.00 [facility] Comment on above: For patients on eltr ombopag therapy, use of Dimension [place] TBIL is not recommended. Chloride [Moles/Vol] 107 mmol/L 98-107 [facility] Cholesterol [Mass/Vol] 144 mg/dL <200 [facility] Comment on above: <200 mg/dL Desirable 200-240 mg/dL Borderline >240 mg/dL High Risk Eosinophils/100 WBC (Bld) 2.6 % 0-5 [facility] Glucose [Mass/Vol] 284 mg/dL 74-106 [facility] Comment on above: Glucose result great er than or equal to 200 mg/dLsuggests DIABETES MELLITUS per A.D.A. criteria. Hemoglobin (Bld) [Mass/Vol] 10.6 g/dL 12.0-15.0 [facility] Monocytes/100 WBC (Bld) 9.9 % 0-10 [facility] Neutrophils (Bld) [#/Vol] 2.6 10*3/uL 2.0-7.7 [facility] Neutrophils/100 WBC (Bld) 45.7 % 47-70 [facility] Potassium [Moles/Vol] 3.6 mmol/L 3.5-5.1 [facility] Protein [Mass/Vol] 7.3 g/dL 6.4-8.2 [facility] Sodium [Moles/Vol] 137 mmol/L 136-145 [facility] Triglyceride [Mass/Vol] 106 mg/dL <199 [facility] Comment on above: The drugs N-Acetylcy steine and Metamizole may falsely depress this assay.Serum Triglycerides Reference Interval Normal <150 mg/dL Borderline high 150 - 199 mg/dL High 200 - 499 mg/dL Very High > or = 500 mg/dL WBC (Bld) [#/Vol] 5.7 10*3/uL 4.4-11.0 [facility] Determination of erythrocyte mean corpuscular volume (MCV)Ordered By: Candelario Santana on 12-20-2023 MCV (RBC) [Entitic vol] 87.8 fL 81-99 [facility] Erythrocyte distribution wid th ratioOrdered By: Candelario Santana on 12-20-2023 Erythrocyte distribution width (RBC) [Ratio] 13.1 % 11.6-14.6 [facility] Erythrocyte distribution wid th standard deviationOrdered By: Candelario Santana on 12-20-2023 Erythrocyte distribution width (RBC) [Entitic vol] 41.3 fL 35.1-43.9 [facility] Hematocrit Auto (Bld) [Volum e fraction]Ordered By: Candelario Santana on 12-20-2023 Hematocrit (Bld) [Volume fraction] 30.1 % 37-47 [facility] Immature granulocytes/100 WB C Auto (Bld)Ordered By: Candelario Santana on 12-20-2023 Immature granulocytes/100 WBC (Bld) 0.200 % 0.0-0.9 [facility] Comment on above: IG% - Immature Granu locytes (promyelocytes, myelocytes and metamyelocytes) > 1% indicates that a LEFT SHIFT is Present. Laboratory - Chemistry and C hemistry - challengeOrdered By: Candelario Santana on 12-20-2023 Albumin/Globulin [Mass ratio] 0.7 {ratio} 0.9-2.4 [facility] ALP [Catalytic activity/Vol] 83 U/L 45-117 [facility] ALT [Catalytic activity/Vol] 17 U/L 13-56 [facility] Cholesterol in HDL [Mass/Vol] 45 mg/dL >40 [facility] Comment on above: The drugs N-Acetylcy steine and Metamizole may falsely depress this assay. Reference Range HDL <40 mg/dL Low HDL Cholesterol HDL >or= 60 mg/dL High HDL Cholesterol Cholesterol in LDL [Mass/Vol] 78 mg/dL 0-130 [facility] CO2 [Moles/Vol] 25.0 mmol/L 21.0-32.0 [facility] Globulin (S) [Mass/Vol] 4.3 g/dL 2.2-4.2 [facility] Urea nitrogen/Creatinine [Mass ratio] 9.3 mg/mg 10-20 [facility] Laboratory - Hematology and Cell countsOrdered By: Candelario Santana on 12-20-2023 MCH (RBC) [Entitic mass] 30.9 pg 27.0-32.0 [facility] MCHC (RBC) [Mass/Vol] 35.2 g/dL 32-36 [facility] Nucleated RBC/100 WBC (Bld) [Ratio] 0 % 0-5 [facility] Platelet mean volume (Bld) [Entitic vol] 9.9 fL 6.2-12.0 [facility] Platelets (Bld) [#/Vol] 183 10*3/uL 150-450 [facility] No Panel InformationOrdered By: Candelario Santana on 12-20-2023 Estimated GFR (MDRD) Amer 96 mL/min >60 [facility] Comment on above: GFR Calc Estimated GFR (MDRD) Non-Af Amer 80 mL/min >60 [facility] Comment on above: Non- GFR Calc Vitamin D 25-Hydroxy 19.3 ng/mL [facility] Comment on above: Vitamin D 25(OH) Sta tus Range Deficiency <20 ng/mL (50nmol/L) Insufficiency 20 - 30 ng/mL (50 - 75 nmol/L) Sufficiency 30 - 100 ng/mL (75 - 250 nmol/L) Toxicity >100 ng/mL (>250 nmol/L) VLDL Cholesterol 21 mg/dL 5-40 [facility] RBC Auto (Bld) [#/Vol]Ordere d By: Candelario Santana on 12-20-2023 RBC (Bld) [#/Vol] 3.43 10*6/uL 4.2-5.4 [facility] Serum or plasma calcium sabino urement (mass/volume)Ordered By: Candelario Santana on 12-20-2023 Calcium [Mass/Vol] 8.5 mg/dL 8.5-10.1 [facility] Serum or plasma creatinine m easurement (mass/volume)Ordered By: Candelario Santana on 12-20-2023 Creatinine [Mass/Vol] 0.75 mg/dL 0.55-1.02 [facility] Comment on above: The validity of the calculated GFR & GFRAA in patients over 70 years has not been determined. Clinical correlation is essential. Serum or plasma thyroid stim ulating hormone (TSH) measurement (units/volume)Ordered By: Candelario Santana on 12-20-2023 TSH Qn 2.06 uIU/mL 0.358-3.74 [facility] Serum or plasma urea nitroge n measurement (mass/volume)Ordered By: Candelario Santana on 12-20-2023 Urea nitrogen [Mass/Vol] 7 mg/dL 7-18 [facility] Thin prep Papanicolaou smear with manual screeningOrdered By: Candelario Santana 12-20-2023 Thin prep Papanicolaou smear with manual screening 3.0 g/dL 3.2-5.0 [facility] Thin prep Papanicolaou smear with manual screening 26 U/L 15-37 [facility] Thin prep Papanicolaou smear with manual screening 5 5-15 [facility] Whole blood hemoglobin A1c/t otal hemoglobin ratio (mass fraction)Ordered By: Candelario Santana on 12-20-2023 HbA1c (Bld) [Mass fraction] 7.2 % 3.8-5.6 [facility] Comment on above: Normal < 5.7 % Predi abetic 5.7 - 6.4 % Diabetic >or= 6.5 % Please note range changes. Absolute lymphocyte countOrd ered By: Candelario Santana on 09-21-2023 Lymphocytes Auto (Unsp spec) [#/Vol] 2.70 10*3/uL 0.83-4.51 [facility] Automated lymphocyte count a s percentage of total leukocytesOrdered By: Candelario Santana on 09-21-2023 Lymphocytes/100 WBC Auto (Unsp spec) 46.9 % 19-41 [facility] Basophil percentageOrdered B y: Candelario Santana on 09-21-2023 Basophils/100 WBC (Bld) 0.7 % 0-1 [facility] Bilirubin [Mass/Vol] 1.00 mg/dL 0.20-1.00 [facility] Comment on above: For patients on eltr ombopag therapy, use of Dimension [place] TBIL is not recommended. Chloride [Moles/Vol] 106 mmol/L 98-107 [facility] Cholesterol [Mass/Vol] 154 mg/dL <200 [facility] Comment on above: <200 mg/dL Desirable 200-240 mg/dL Borderline >240 mg/dL High Risk Eosinophils/100 WBC (Bld) 3.1 % 0-5 [facility] Glucose [Mass/Vol] 227 mg/dL 74-106 [facility] Comment on above: Glucose result great er than or equal to 200 mg/dLsuggests DIABETES MELLITUS per A.D.A. criteria. Hemoglobin (Bld) [Mass/Vol] 10.5 g/dL 12.0-15.0 [facility] Monocytes/100 WBC (Bld) 8.5 % 0-10 [facility] Neutrophils (Bld) [#/Vol] 2.3 10*3/uL 2.0-7.7 [facility] Neutrophils/100 WBC (Bld) 40.6 % 47-70 [facility] Potassium [Moles/Vol] 3.6 mmol/L 3.5-5.1 [facility] Protein [Mass/Vol] 7.5 g/dL 6.4-8.2 [facility] Sodium [Moles/Vol] 135 mmol/L 136-145 [facility] Triglyceride [Mass/Vol] 94 mg/dL <199 [facility] Comment on above: The drugs N-Acetylcy steine and Metamizole may falsely depress this assay.Serum Triglycerides Reference Interval Normal <150 mg/dL Borderline high 150 - 199 mg/dL High 200 - 499 mg/dL Very High > or = 500 mg/dL WBC (Bld) [#/Vol] 5.8 10*3/uL 4.4-11.0 [facility] Determination of erythrocyte mean corpuscular volume (MCV)Ordered By: Candelario Santana on 09-21-2023 MCV (RBC) [Entitic vol] 92.0 fL 81-99 [facility] Erythrocyte distribution wid th ratioOrdered By: [facility] on 09-21-2023 Erythrocyte distribution width (RBC) [Ratio] 14.6 % 11.6-14.6 [facility] Erythrocyte distribution wid th standard deviationOrdered By: [facility] on 09-21-2023 Erythrocyte distribution width (RBC) [Entitic vol] 48.9 fL 35.1-43.9 [facility] Hematocrit Auto (Bld) [Volum e fraction]Ordered By: [facility] 09-21-2023 Hematocrit (Bld) [Volume fraction] 30.9 % 37-47 [facility] High density lipoprotein (HD L) measurementOrdered By: [facility] 09-21-2023 Cholesterol in HDL (Body fld) [Mass/Vol] 41 mg/dL >40 [facility] Comment on above: The drugs N-Acetylcy steine and Metamizole may falsely depress this assay. Reference Range HDL <40 mg/dL Low HDL Cholesterol HDL >or= 60 mg/dL High HDL Cholesterol Immature granulocytes/100 WB C Auto (Bld)Ordered By: Candelario Max on 09-21-2023 Immature granulocytes/100 WBC (Bld) 0.200 % 0.0-0.9 [facility] Comment on above: IG% - Immature Granu locytes (promyelocytes, myelocytes and metamyelocytes) > 1% indicates that a LEFT SHIFT is Present. Laboratory - Chemistry and C hemistry - challengeOrdered By: Candelario [facility] on 09-21-2023 Albumin/Globulin [Mass ratio] 0.7 {ratio} 0.9-2.4 [facility] ALP [Catalytic activity/Vol] 93 U/L 45-117 [facility] ALT [Catalytic activity/Vol] 23 U/L 13-56 [facility] CO2 [Moles/Vol] 22.0 mmol/L 21.0-32.0 [facility] Globulin (S) [Mass/Vol] 4.4 g/dL 2.2-4.2 [facility] Urea nitrogen/Creatinine [Mass ratio] 13.9 mg/mg 10-20 [facility] Laboratory - Hematology and Cell countsOrdered By: Candelario Santana on 09-21-2023 MCH (RBC) [Entitic mass] 31.3 pg 27.0-32.0 [facility] MCHC (RBC) [Mass/Vol] 34.0 g/dL 32-36 [facility] Nucleated RBC/100 WBC (Bld) [Ratio] 0 % 0-5 [facility] Platelets (Bld) [#/Vol] 185 10*3/uL 150-450 [facility] Low density lipoprotein (LDL ) cholesterol measurementOrdered By: Candelario Santana on 09-21-2023 Cholesterol in LDL (Body fld) [Moles/Vol] 94 mg/dL 0-130 [facility] No Panel InformationOrdered By: Candelario Santana on 09-21-2023 Estimated GFR (MDRD) Amer 101 mL/min >60 [facility] Comment on above: GFR Calc Estimated GFR (MDRD) Non-Af Amer 84 mL/min >60 [facility] Comment on above: Non- GFR Calc Vitamin D 25-Hydroxy 27.7 ng/mL [facility] Comment on above: Vitamin D 25(OH) Sta tus Range Deficiency <20 ng/mL (50nmol/L) Insufficiency 20 - 30 ng/mL (50 - 75 nmol/L) Sufficiency 30 - 100 ng/mL (75 - 250 nmol/L) Toxicity >100 ng/mL (>250 nmol/L) Platelet mean volume Hua-Ec ker (Bld) [Entitic vol]Ordered By: Candelario Santana on 09-21-2023 Platelet mean volume (Bld) [Entitic vol] 9.8 fL 6.2-12.0 [facility] RBC Auto (Bld) [#/Vol]Ordere d By: Candelario Santana on 09-21-2023 RBC (Bld) [#/Vol] 3.36 10*6/uL 4.2-5.4 [facility] Serum or plasma calcium sabino urement (mass/volume)Ordered By: Candelario Santana on 09-21-2023 Calcium [Mass/Vol] 8.9 mg/dL 8.5-10.1 [facility] Serum or plasma creatinine m easurement (mass/volume)Ordered By: Candelario Santana on 09-21-2023 Creatinine [Mass/Vol] 0.72 mg/dL 0.55-1.02 [facility] Comment on above: The validity of the calculated GFR & GFRAA in patients over 70 years has not been determined. Clinical correlation is essential. Serum or plasma thyroid stim ulating hormone (TSH) measurement (units/volume)Ordered By: Candelario Santana on 09-21-2023 TSH Qn 2.20 uIU/mL 0.358-3.74 [facility] Serum or plasma urea nitroge n measurement (mass/volume)Ordered By: Candelario Santana on 09-21-2023 Urea nitrogen [Mass/Vol] 10 mg/dL 7-18 [facility] Thin prep Papanicolaou smear with manual screeningOrdered By: Candelario Santana on 09-21-2023 Thin prep Papanicolaou smear with manual screening 3.1 g/dL 3.2-5.0 [facility] Thin prep Papanicolaou smear with manual screening 29 U/L 15-37 [facility] Thin prep Papanicolaou smear with manual screening 7 5-15 [facility] Very low density lipoprotein (VLDL) cholesterol measurementOrdered By: Candelario Santana on 09-21-2023 Cholesterol in VLDL Calc [Moles/Vol] 19 mg/dL 5-40 [facility] Absolute lymphocyte countOrd ered By: Candelario Santana on 06-15-2023 Lymphocytes Auto (Unsp spec) [#/Vol] 3.02 10*3/uL 0.83-4.51 [facility] Basophil percentageOrdered B y: Candelario Santana on 06-15-2023 Basophils/100 WBC (Bld) 0.7 % 0-1 [facility] Bilirubin [Mass/Vol] 1.30 mg/dL 0.20-1.00 [facility] Comment on above: For patients on eltr ombopag therapy, use of Dimension [place] TBIL is not recommended. Chloride [Moles/Vol] 105 mmol/L 98-107 [facility] Cholesterol [Mass/Vol] 198 mg/dL <200 [facility] Comment on above: <200 mg/dL Desirable 200-240 mg/dL Borderline >240 mg/dL High Risk Eosinophils/100 WBC (Bld) 2.8 % 0-5 [facility] Glucose [Mass/Vol] 385 mg/dL 74-106 [facility] Comment on above: Glucose result great er than or equal to 200 mg/dLsuggests DIABETES MELLITUS per A.D.A. criteria. Neutrophils (Bld) [#/Vol] 3.5 10*3/uL 2.0-7.7 [facility] Neutrophils/100 WBC (Bld) 46.3 % 47-70 [facility] Potassium [Moles/Vol] 3.5 mmol/L 3.5-5.1 [facility] Protein [Mass/Vol] 7.7 g/dL 6.4-8.2 [facility] Sodium [Moles/Vol] 135 mmol/L 136-145 [facility] Triglyceride [Mass/Vol] 93 mg/dL <199 [facility] Comment on above: The drugs N-Acetylcy steine and Metamizole may falsely depress this assay.Serum Triglycerides Reference Interval Normal <150 mg/dL Borderline high 150 - 199 mg/dL High 200 - 499 mg/dL Very High > or = 500 mg/dL WBC (Bld) [#/Vol] 7.6 10*3/uL 4.4-11.0 [facility] Blood erythrocytes count (nu mber/volume)Ordered By: Candelario Santana on 06-15-2023 RBC (Bld) [#/Vol] 3.94 10*6/uL 4.2-5.4 [facility] Blood hemoglobin measurement (mass/volume)Ordered By: Candelario Santana on 06-15-2023 Hemoglobin (Bld) [Mass/Vol] 12.0 g/dL 12.0-15.0 [facility] Blood lymphocytes/100 leukoc ytesOrdered By: Candelario Santana on 06-15-2023 Lymphocytes/100 WBC (Bld) 39.7 % 19-41 [facility] Blood monocytes/100 leukocyt esOrdered By: Cadnelario Santana on 06-15-2023 Monocytes/100 WBC (Bld) 10.2 % 0-10 [facility] Blood platelet mean volumeOr dered By: Candelario Santana on 06-15-2023 Platelet mean volume (Bld) [Entitic vol] 10.2 fL 6.2-12.0 [facility] Determination of erythrocyte mean corpuscular volume (MCV)Ordered By: Candelario Santana on 06-15-2023 MCV (RBC) [Entitic vol] 87.6 fL 81-99 [facility] Hematocrit Auto (Bld) [Volum e fraction][facility] Hematocrit (Bld) [Volume fraction] 34.5 % 37-47 [facility] Laboratory - Chemistry and C hemistry - challengeOrdered By: [facility]23 ALP [Catalytic activity/Vol] 99 U/L 45-117 [facility] ALT [Catalytic activity/Vol] 18 U/L 13-56 [facility] CO2 [Moles/Vol] 18.0 mmol/L 21.0-32.0 [facility] Globulin (S) [Mass/Vol] 4.6 g/dL 2.2-4.2 [facility] Urea nitrogen/Creatinine [Mass ratio] 13.8 mg/mg 10-20 [facility] Laboratory - Hematology and Cell countsOrdered By: Candelario Santana on 06-15-2023 Erythrocyte distribution width (RBC) [Entitic vol] 42.4 fL 35.1-43.9 [facility] Erythrocyte distribution width (RBC) [Ratio] 13.2 % 11.6-14.6 [facility] Immature granulocytes/100 WBC (Bld) 0.300 % 0.0-0.9 [facility] Comment on above: IG% - Immature Granu locytes (promyelocytes, myelocytes and metamyelocytes) > 1% indicates that a LEFT SHIFT is Present. MCH (RBC) [Entitic mass] 30.5 pg 27.0-32.0 [facility] Nucleated RBC/100 WBC (Bld) [Ratio] 0 % 0-5 [facility] MCHC Auto (RBC) [Mass/Vol]Or dered By: Candelario Santana on 06-15-2023 MCHC (RBC) [Mass/Vol] 34.8 g/dL 32-36 [facility] No Panel InformationOrdered By: Candelario Santana on 06-15-2023 Estimated GFR (MDRD) Amer 90 mL/min >60 [facility] Comment on above: GFR Calc Estimated GFR (MDRD) Non-Af Amer 74 mL/min >60 [facility] Comment on above: Non- GFR Calc Thyroid Stimulating Hormone (TSH) 5.09 uIU/mL 0.358-3.74 [facility] Vitamin D 25-Hydroxy 27.0 ng/mL [facility] Comment on above: Vitamin D 25(OH) Sta tus Range Deficiency <20 ng/mL (50nmol/L) Insufficiency 20 - 30 ng/mL (50 - 75 nmol/L) Sufficiency 30 - 100 ng/mL (75 - 250 nmol/L) Toxicity >100 ng/mL (>250 nmol/L) Platelets bldOrdered By: Candelario Santana on 06-15-2023 Platelets (Bld) [#/Vol] 223 10*3/uL 150-450 [facility] Serum or plasma albumin sabino urement (mass/volume)Ordered By: Candelario Santana on 06-15-2023 Albumin [Mass/Vol] 3.1 g/dL 3.2-5.0 [facility] Serum or plasma albumin/glob ulin mass ratioOrdered By: Candelario Santana on 06-15-2023 Albumin/Globulin [Mass ratio] 0.7 {ratio} 0.9-2.4 [facility] Serum or plasma calcium sabino urement (mass/volume)Ordered By: Candelario Santana on 06-15-2023 Calcium [Mass/Vol] 8.3 mg/dL 8.5-10.1 [facility] Serum or plasma cholesterol in HDL measurement (mass/volume)Ordered By: Candelario Santana on 06-15-2023 Cholesterol in HDL [Mass/Vol] 54 mg/dL >40 [facility] Comment on above: The drugs N-Acetylcy steine and Metamizole may falsely depress this assay. Reference Range HDL <40 mg/dL Low HDL Cholesterol HDL >or= 60 mg/dL High HDL Cholesterol Serum or plasma cholesterol in VLDL measurement (mass/volume)Ordered By: Candelario Santana on 06-15-2023 Cholesterol in VLDL [Mass/Vol] 19 mg/dL 5-40 [facility] Serum or plasma creatinine m easurement (mass/volume)Ordered By: Candelario Santana on 06-15-2023 Creatinine [Mass/Vol] 0.80 mg/dL 0.55-1.02 [facility] Comment on above: The validity of the calculated GFR & GFRAA in patients over 70 years has not been determined. Clinical correlation is essential. Serum or plasma low density lipoprotein (LDL) cholesterol measurement (mass/volume)Ordered By: Candelario Santana on 06-15-2023 Cholesterol in LDL [Mass/Vol] 125 mg/dL 0-130 [facility] Serum or plasma urea nitroge n measurement (mass/volume)Ordered By: Candelario Santana on 06-15-2023 Urea nitrogen [Mass/Vol] 11 mg/dL 7-18 [facility] Thin prep Papanicolaou smear with manual screeningOrdered By: Candelario Santana 06-15-2023 Thin prep Papanicolaou smear with manual screening 21 U/L 15-37 [facility] Thin prep Papanicolaou smear with manual screening 12 5-15 [facility] Absolute lymphocyte countOrd ered By: Candelario Santana on 03-17-2023 Lymphocytes Auto (Unsp spec) [#/Vol] 2.32 10*3/uL 0.83-4.51 [facility] Basophil percentageOrdered B y: Candelario Santana on 03-17-2023 Basophils/100 WBC (Bld) 0.7 % 0-1 [facility] Bilirubin [Mass/Vol] 1.50 mg/dL 0.20-1.00 [facility] Comment on above: For patients on eltr ombopag therapy, use of Dimension [place] TBIL is not recommended. Chloride [Moles/Vol] 104 mmol/L 98-107 [facility] Cholesterol [Mass/Vol] 163 mg/dL <200 [facility] Comment on above: <200 mg/dL Desirable 200-240 mg/dL Borderline >240 mg/dL High Risk Eosinophils/100 WBC (Bld) 2.2 % 0-5 [facility] Glucose [Mass/Vol] 289 mg/dL 74-106 [facility] Comment on above: Glucose result great er than or equal to 200 mg/dLsuggests DIABETES MELLITUS per A.D.A. criteria. Neutrophils (Bld) [#/Vol] 2.9 10*3/uL 2.0-7.7 [facility] Neutrophils/100 WBC (Bld) 48.9 % 47-70 [facility] Potassium [Moles/Vol] 4.2 mmol/L 3.5-5.1 [facility] Protein [Mass/Vol] 7.4 g/dL 6.4-8.2 [facility] Sodium [Moles/Vol] 134 mmol/L 136-145 [facility] Triglyceride [Mass/Vol] 102 mg/dL <199 [facility] Comment on above: The drugs N-Acetylcy steine and Metamizole may falsely depress this assay.Serum Triglycerides Reference Interval Normal <150 mg/dL Borderline high 150 - 199 mg/dL High 200 - 499 mg/dL Very High > or = 500 mg/dL WBC (Bld) [#/Vol] 6.0 10*3/uL 4.4-11.0 [facility] Blood erythrocytes count (nu mber/volume)Ordered By: Candelario Santana on 03-17-2023 RBC (Bld) [#/Vol] 3.78 10*6/uL 4.2-5.4 [facility] Blood hemoglobin measurement (mass/volume)Ordered By: Candelario Santana on 03-17-2023 Hemoglobin (Bld) [Mass/Vol] 11.5 g/dL 12.0-15.0 [facility] Blood lymphocytes/100 leukoc ytesOrdered By: Candelario Santana on 03-17-2023 Lymphocytes/100 WBC (Bld) 38.7 % 19-41 [facility] Blood monocytes/100 leukocyt esOrdered By: Candelario Santana on 03-17-2023 Monocytes/100 WBC (Bld) 9.0 % 0-10 [facility] Blood platelet mean volumeOr dered By: Candelario Santana on 03-17-2023 Platelet mean volume (Bld) [Entitic vol] 10.3 fL 6.2-12.0 [facility] Determination of erythrocyte mean corpuscular volume (MCV)Ordered By: Candelario Santana on 03-17-2023 MCV (RBC) [Entitic vol] 93.1 fL 81-99 [facility] Hematocrit Auto (Bld) [Volum e fraction]Ordered By: Candelario Santana on 03-17-2023 Hematocrit (Bld) [Volume fraction] 35.2 % 37-47 [facility] Laboratory - Chemistry and C hemistry - challengeOrdered By: Candelario Santana on 03-17-2023 ALP [Catalytic activity/Vol] 162 U/L 45-117 [facility] ALT [Catalytic activity/Vol] 48 U/L 13-56 [facility] CO2 [Moles/Vol] 22.0 mmol/L 21.0-32.0 [facility] Globulin (S) [Mass/Vol] 4.4 g/dL 2.2-4.2 [facility] Urea nitrogen/Creatinine [Mass ratio] 10.3 mg/mg 10-20 [facility] Laboratory - Hematology and Cell countsOrdered By: Candelario Santana on 03-17-2023 Erythrocyte distribution width (RBC) [Entitic vol] 46.0 fL 35.1-43.9 [facility] Erythrocyte distribution width (RBC) [Ratio] 13.5 % 11.6-14.6 [facility] Immature granulocytes/100 WBC (Bld) 0.500 % 0.0-0.9 [facility] Comment on above: IG% - Immature Granu locytes (promyelocytes, myelocytes and metamyelocytes) > 1% indicates that a LEFT SHIFT is Present. MCH (RBC) [Entitic mass] 30.4 pg 27.0-32.0 [facility] Nucleated RBC/100 WBC (Bld) [Ratio] 0 % 0-5 [facility] MCHC Auto (RBC) [Mass/Vol]Or dered By: Candelario Santana on 03-17-2023 MCHC (RBC) [Mass/Vol] 32.7 g/dL 32-36 [facility] No Panel InformationOrdered By: Candelario Santana on 03-17-2023 Estimated GFR (MDRD) Amer 93 mL/min >60 [facility] Comment on above: GFR Calc Estimated GFR (MDRD) Non-Af Amer 77 mL/min >60 [facility] Comment on above: Non- GFR Calc Thyroid Stimulating Hormone (TSH) 3.35 uIU/mL 0.358-3.74 [facility] Vitamin D 25-Hydroxy 21.8 ng/mL [facility] Comment on above: Vitamin D 25(OH) Sta tus Range Deficiency <20 ng/mL (50nmol/L) Insufficiency 20 - 30 ng/mL (50 - 75 nmol/L) Sufficiency 30 - 100 ng/mL (75 - 250 nmol/L) Toxicity >100 ng/mL (>250 nmol/L) Platelets bldOrdered By: Candelario Santana on 03-17-2023 Platelets (Bld) [#/Vol] 252 10*3/uL 150-450 [facility] Serum or plasma albumin sabino urement (mass/volume)Ordered By: Candelario Santana 03-17-2023 Albumin [Mass/Vol] 3.0 g/dL 3.2-5.0 [facility] Serum or plasma albumin/glob ulin mass ratioOrdered By: Candelario Santnaa 03-17-2023 Albumin/Globulin [Mass ratio] 0.7 {ratio} 0.9-2.4 [facility] Serum or plasma calcium sabino urement (mass/volume)Ordered By: Candelario Santana 03-17-2023 Calcium [Mass/Vol] 8.8 mg/dL 8.5-10.1 [facility] Serum or plasma cholesterol in HDL measurement (mass/volume)Ordered By: Candelario Santana 03-17-2023 Cholesterol in HDL [Mass/Vol] 36 mg/dL >40 [facility] Comment on above: The drugs N-Acetylcy steine and Metamizole may falsely depress this assay. Reference Range HDL <40 mg/dL Low HDL Cholesterol HDL >or= 60 mg/dL High HDL Cholesterol Serum or plasma cholesterol in VLDL measurement (mass/volume)Ordered By: Candelario Santana 03-17-2023 Cholesterol in VLDL [Mass/Vol] 20 mg/dL 5-40 [facility] Serum or plasma creatinine m easurement (mass/volume)Ordered By: Candelario Santana 03-17-2023 Creatinine [Mass/Vol] 0.77 mg/dL 0.55-1.02 [facility] Comment on above: The validity of the calculated GFR & GFRAA in patients over 70 years has not been determined. Clinical correlation is essential. Serum or plasma low density lipoprotein (LDL) cholesterol measurement (mass/volume)Ordered By: Candelario Santana on 03-17-2023 Cholesterol in LDL [Mass/Vol] 107 mg/dL 0-130 [facility] Serum or plasma urea nitroge n measurement (mass/volume)Ordered By: Candelario Santana on 03-17-2023 Urea nitrogen [Mass/Vol] 8 mg/dL 7-18 [facility] Thin prep Papanicolaou smear with manual screeningOrdered By: Candelario Santana on 03-17-2023 Thin prep Papanicolaou smear with manual screening 41 U/L 15-37 [facility] Thin prep Papanicolaou smear with manual screening 8 5-15 [facility] Absolute lymphocyte countOrd ered By: Dr. Santana on 12-21-2022 Lymphocytes Auto (Unsp spec) [#/Vol] 2.70 10*3/uL 0.83-4.51 [facility] Basophil percentageOrdered B y: Dr. Santana on 12-21-2022 Basophils/100 WBC (Bld) 0.7 % 0-1 [facility] Eosinophils/100 WBC (Bld) 3.6 % 0-5 [facility] Neutrophils (Bld) [#/Vol] 3.4 10*3/uL 2.0-7.7 [facility] Neutrophils/100 WBC (Bld) 46.8 % 47-70 [facility] WBC (Bld) [#/Vol] 7.3 10*3/uL 4.4-11.0 [facility] Blood erythrocytes count (nu mber/volume)Ordered By: Dr. Santana on 12-21-2022 RBC (Bld) [#/Vol] 3.57 10*6/uL 4.2-5.4 [facility] Blood hemoglobin measurement (mass/volume)Ordered By: Dr. Santana on 12-21-2022 Hemoglobin (Bld) [Mass/Vol] 11.0 g/dL 12.0-15.0 [facility] [place] Blood lymphocytes/100 leukoc ytesOrdered By: Dr. Santana on 12-21-2022 Lymphocytes/100 WBC (Bld) 36.9 % 19-41 [facility] [place] Blood monocytes/100 leukocyt esOrdered By: Dr. Santana on 12-21-2022 Monocytes/100 WBC (Bld) 11.7 % 0-10 [facility] Blood platelet mean volumeOr dered By: Dr. Santana on 12-21-2022 Platelet mean volume (Bld) [Entitic vol] 9.7 fL 6.2-12.0 [facility] [place] Determination of erythrocyte mean corpuscular volume (MCV)Ordered By: Dr. Santana on 12-21-2022 MCV (RBC) [Entitic vol] 92.4 fL 81-99 [facility] Hematocrit Auto (Bld) [Volum e fraction]Ordered By: Dr. Santana on 12-21-2022 Hematocrit (Bld) [Volume fraction] 33.0 % 37-47 [facility] [place] Hemoglobin in reticulocytes (mass per reticulocyte)Ordered By: Dr. Santana on 12-21-2022 Hemoglobin (Reticulocytes) [Entitic mass] 34.2 pg 30-35 [facility] [place] Iron measurement (mass/mass) Ordered By: Dr. Santana on 12-21-2022 Iron (Unsp spec) [Mass/Mass] 61 ug/dL 50-170 [facility] [place] Laboratory - Chemistry and C hemistry - challengeOrdered By: Dr. Santana on 12-21-2022 Cobalamin (Vitamin B12) [Mass/Vol] 312 pg/mL 211-911 [facility] [place] Laboratory - Hematology and Cell countsOrdered By: Dr. Santana on 12-21-2022 Erythrocyte distribution width (RBC) [Entitic vol] 46.0 fL 35.1-43.9 [facility] Erythrocyte distribution width (RBC) [Ratio] 13.5 % 11.6-14.6 [facility] [place] Immature granulocytes/100 WBC (Bld) 0.300 % 0.0-0.9 [facility] [place] Comment on above: IG% - Immature Granu locytes (promyelocytes, myelocytes and metamyelocytes) > 1% indicates that a LEFT SHIFT is Present. MCH (RBC) [Entitic mass] 30.8 pg 27.0-32.0 [facility] [place] Nucleated RBC/100 WBC (Bld) [Ratio] 0 % 0-5 [facility] [place] MCHC Auto (RBC) [Mass/Vol]Or dered By: Dr. Santana on 12-21-2022 MCHC (RBC) [Mass/Vol] 33.3 g/dL 32-36 [facility] No Panel InformationOrdered By: Dr. Santana on 12-21-2022 Immature Reticulocyte Fraction 6.10 % 3.00-15.90 [facility] [place] Reticulocyte Count 1.63 % 0.5-1.5 [facility] Total Iron Binding Capacity 295 ug/dL 250-450 [facility] [place] Platelets bldOrdered By: Dr. Santana on 12-21-2022 Platelets (Bld) [#/Vol] 234 10*3/uL 150-450 [facility] [place] Serum or plasma ferritin uzma surement (mass/volume)Ordered By: Dr. Santana on 12-21-2022 Ferritin [Mass/Vol] 32 ng/mL 8-252 [facility] Serum or plasma folate measu rement (mass/volume)Ordered By: Dr. Santana on 12-21-2022 Folate [Mass/Vol] 18.50 ng/mL 3.1-55.4 [facility] Serum or plasma iron saturat ion measurement (mass fraction)Ordered By: Dr. Santana on 12-21-2022 Iron saturation [Mass fraction] 20.7 % 15.0-55.0 [facility] [place] Absolute lymphocyte countOrd ered By: Dr. Santana on 12-16-2022 Lymphocytes Auto (Unsp spec) [#/Vol] 2.52 10*3/uL 0.83-4.51 [facility] [place] Basophil percentageOrdered B y: Dr. Santana on 12-16-2022 Basophils/100 WBC (Bld) 0.6 % 0-1 [facility] Bilirubin [Mass/Vol] 0.90 mg/dL 0.20-1.00 [facility] Comment on above: For patients on eltr ombopag therapy, use of Dimension [place] TBIL is not recommended. Chloride [Moles/Vol] 107 mmol/L 98-107 [facility] Cholesterol [Mass/Vol] 191 mg/dL <200 [facility] Comment on above: <200 mg/dL Desirable 200-240 mg/dL Borderline >240 mg/dL High Risk Eosinophils/100 WBC (Bld) 4.2 % 0-5 [facility] [place] Glucose [Mass/Vol] 202 mg/dL 74-106 [facility] Comment on above: Glucose result great er than or equal to 200 mg/dLsuggests DIABETES MELLITUS per A.D.A. criteria. Neutrophils (Bld) [#/Vol] 2.7 10*3/uL 2.0-7.7 [facility] [place] Neutrophils/100 WBC (Bld) 43.9 % 47-70 [facility] [place] Potassium [Moles/Vol] 3.9 mmol/L 3.5-5.1 [facility] Protein [Mass/Vol] 7.6 g/dL 6.4-8.2 [facility] Sodium [Moles/Vol] 134 mmol/L 136-145 [facility] Triglyceride [Mass/Vol] 96 mg/dL <199 [facility] Comment on above: The drugs N-Acetylcy steine and Metamizole may falsely depress this assay.Serum Triglycerides Reference Interval Normal <150 mg/dL Borderline high 150 - 199 mg/dL High 200 - 499 mg/dL Very High > or = 500 mg/dL WBC (Bld) [#/Vol] 6.2 10*3/uL 4.4-11.0 [facility] Blood erythrocytes count (nu mber/volume)Ordered By: Dr. Santana on 12-16-2022 RBC (Bld) [#/Vol] 3.36 10*6/uL 4.2-5.4 [facility] Blood hemoglobin measurement (mass/volume)Ordered By: Dr. Santana on 12-16-2022 Hemoglobin (Bld) [Mass/Vol] 10.4 g/dL 12.0-15.0 [facility] [place] Blood lymphocytes/100 leukoc ytesOrdered By: Dr. Santana on 12-16-2022 Lymphocytes/100 WBC (Bld) 40.4 % 19-41 [facility] [place] Blood monocytes/100 leukocyt esOrdered By: Dr. Santana on 12-16-2022 Monocytes/100 WBC (Bld) 10.7 % 0-10 [facility] Blood platelet mean volumeOr dered By: Dr. Santana on 12-16-2022 Platelet mean volume (Bld) [Entitic vol] 9.8 fL 6.2-12.0 [facility] [place] Determination of erythrocyte mean corpuscular volume (MCV)Ordered By: Dr. Santana on 12-16-2022 MCV (RBC) [Entitic vol] 90.2 fL 81-99 [facility] Hematocrit Auto (Bld) [Volum e fraction]Ordered By: Dr. Santana on 12-16-2022 Hematocrit (Bld) [Volume fraction] 30.3 % 37-47 [facility] [place] Laboratory - Chemistry and C hemistry - challengeOrdered By: Dr. Santana on 12-16-2022 ALP [Catalytic activity/Vol] 66 U/L 45-117 [facility] [place] ALT [Catalytic activity/Vol] 17 U/L 13-56 [facility] [place] CO2 [Moles/Vol] 22.0 mmol/L 21.0-32.0 [facility] [place] Globulin (S) [Mass/Vol] 4.4 g/dL 2.2-4.2 [facility] Urea nitrogen/Creatinine [Mass ratio] 12.8 mg/mg 10-20 [facility] [place] Laboratory - Hematology and Cell countsOrdered By: Dr. Santana on 12-16-2022 Erythrocyte distribution width (RBC) [Entitic vol] 44.2 fL 35.1-43.9 [facility] Erythrocyte distribution width (RBC) [Ratio] 13.6 % 11.6-14.6 [facility] [place] Immature granulocytes/100 WBC (Bld) 0.200 % 0.0-0.9 [facility] [place] Comment on above: IG% - Immature Granu locytes (promyelocytes, myelocytes and metamyelocytes) > 1% indicates that a LEFT SHIFT is Present. MCH (RBC) [Entitic mass] 31.0 pg 27.0-32.0 [facility] [place] Nucleated RBC/100 WBC (Bld) [Ratio] 0 % 0-5 [facility] [place] MCHC Auto (RBC) [Mass/Vol]Or dered By: Dr. Santana on 12-16-2022 MCHC (RBC) [Mass/Vol] 34.3 g/dL 32-36 [facility] No Panel InformationOrdered By: Dr. Santana on 12-16-2022 Estimated GFR (MDRD) Amer 92 mL/min >60 [facility] [place] Comment on above: GFR Calc Estimated GFR (MDRD) Non-Af Amer 76 mL/min >60 [facility] [place] Comment on above: Non- GFR Calc Thyroid Stimulating Hormone (TSH) 0.64 uIU/mL 0.358-3.74 [facility] [place] Vitamin D 25-Hydroxy 37.9 ng/mL [facility] Comment on above: Vitamin D 25(OH) Sta tus Range Deficiency <20 ng/mL (50nmol/L) Insufficiency 20 - 30 ng/mL (50 - 75 nmol/L) Sufficiency 30 - 100 ng/mL (75 - 250 nmol/L) Toxicity >100 ng/mL (>250 nmol/L) Platelets bldOrdered By: Dr. Santana on 12-16-2022 Platelets (Bld) [#/Vol] 212 10*3/uL 150-450 [facility] [place] Serum or plasma albumin sabino urement (mass/volume)Ordered By: Dr. Santana on 12-16-2022 Albumin [Mass/Vol] 3.2 g/dL 3.2-5.0 [facility] Serum or plasma albumin/glob ulin mass ratioOrdered By: Dr. Santana on 12-16-2022 Albumin/Globulin [Mass ratio] 0.7 {ratio} 0.9-2.4 [facility] [place] Serum or plasma calcium sabino urement (mass/volume)Ordered By: Dr. Santana on 12-16-2022 Calcium [Mass/Vol] 8.7 mg/dL 8.5-10.1 [facility] Serum or plasma cholesterol in HDL measurement (mass/volume)Ordered By: Dr. Santana on 12-16-2022 Cholesterol in HDL [Mass/Vol] 50 mg/dL >40 [facility] [place] Comment on above: The drugs N-Acetylcy steine and Metamizole may falsely depress this assay. Reference Range HDL <40 mg/dL Low HDL Cholesterol HDL >or= 60 mg/dL High HDL Cholesterol Serum or plasma cholesterol in VLDL measurement (mass/volume)Ordered By: Dr. Santana on 12-16-2022 Cholesterol in VLDL [Mass/Vol] 19 mg/dL 5-40 [facility] [place] Serum or plasma creatinine m easurement (mass/volume)Ordered By: Dr. Santana on 12-16-2022 Creatinine [Mass/Vol] 0.78 mg/dL 0.55-1.02 [facility] Comment on above: The validity of the calculated GFR & GFRAA in patients over 70 years has not been determined. Clinical correlation is essential. Serum or plasma low density lipoprotein (LDL) cholesterol measurement (mass/volume)Ordered By: Dr. Santana on 12-16-2022 Cholesterol in LDL [Mass/Vol] 122 mg/dL 0-130 [facility] [place] Serum or plasma urea nitroge n measurement (mass/volume)Ordered By: Dr. Santana on 12-16-2022 Urea nitrogen [Mass/Vol] 10 mg/dL 7-18 [facility] [place] Thin prep Papanicolaou smear with manual screeningOrdered By: Dr. Santana on 12-16-2022 Thin prep Papanicolaou smear with manual screening 25 U/L 15-37 [facility] [place] Thin prep Papanicolaou smear with manual screening 5 5-15 [facility] [place] Glucose Glucometer (BldC) [M ass/Vol]Ordered By: Antony Tran on 11-24-2022 Glucose [Mass/Vol] 182 mg/dL 74-106 [facility] Comment on above: MANAGEMENT OF PATIEN T CARE PER NURSING PROTOCOL Absolute lymphocyte countOrd ered By: Candelario Santana on 09-16-2022 Lymphocytes Auto (Unsp spec) [#/Vol] 2.69 10*3/uL 0.83-4.51 [facility] [place] Basophil percentageOrdered B y: Candelario Santana on 09-16-2022 Basophils/100 WBC (Bld) 0.5 % 0-1 [facility] Bilirubin [Mass/Vol] 1.10 mg/dL 0.20-1.00 [facility] Comment on above: For patients on eltr ombopag therapy, use of Dimension [place] TBIL is not recommended. Chloride [Moles/Vol] 100 mmol/L 98-107 [facility] Cholesterol [Mass/Vol] 179 mg/dL <200 [facility] Comment on above: <200 mg/dL Desirable 200-240 mg/dL Borderline >240 mg/dL High Risk Eosinophils/100 WBC (Bld) 2.7 % 0-5 [facility] [place] Glucose [Mass/Vol] 374 mg/dL 74-106 [facility] Comment on above: Glucose result great er than or equal to 200 mg/dLsuggests DIABETES MELLITUS per A.D.A. criteria. Neutrophils (Bld) [#/Vol] 3.8 10*3/uL 2.0-7.7 [facility] [place] Neutrophils/100 WBC (Bld) 50.5 % 47-70 [facility] [place] Potassium [Moles/Vol] 3.5 mmol/L 3.5-5.1 [facility] Protein [Mass/Vol] 7.4 g/dL 6.4-8.2 [facility] Sodium [Moles/Vol] 135 mmol/L 136-145 [facility] Triglyceride [Mass/Vol] 89 mg/dL <199 [facility] Comment on above: The drugs N-Acetylcy steine and Metamizole may falsely depress this assay.Serum Triglycerides Reference Interval Normal <150 mg/dL Borderline high 150 - 199 mg/dL High 200 - 499 mg/dL Very High > or = 500 mg/dL WBC (Bld) [#/Vol] 7.5 10*3/uL 4.4-11.0 [facility] Blood erythrocytes count (nu mber/volume)Ordered By: Candelario Santana on 09-16-2022 RBC (Bld) [#/Vol] 3.82 10*6/uL 4.2-5.4 [facility] Blood hemoglobin measurement (mass/volume)Ordered By: Candelario Santana on 09-16-2022 Hemoglobin (Bld) [Mass/Vol] 11.5 g/dL 12.0-15.0 [facility] [place] Blood lymphocytes/100 leukoc ytesOrdered By: Candelario Santana on 09-16-2022 Lymphocytes/100 WBC (Bld) 36.1 % 19-41 [facility] [place] Blood monocytes/100 leukocyt esOrdered By: Candelario Santana on 09-16-2022 Monocytes/100 WBC (Bld) 9.8 % 0-10 [facility] Blood platelet mean volumeOr dered By: Candelario Santana on 09-16-2022 Platelet mean volume (Bld) [Entitic vol] 10.4 fL 6.2-12.0 [facility] [place] Determination of erythrocyte mean corpuscular volume (MCV)Ordered By: Candelario Santana on 09-16-2022 MCV (RBC) [Entitic vol] 86.4 fL 81-99 [facility] Hematocrit Auto (Bld) [Volum e fraction]Ordered By: Candelario Santana on 09-16-2022 Hematocrit (Bld) [Volume fraction] 33.0 % 37-47 [facility] [place] Laboratory - Chemistry and C hemistry - challengeOrdered By: Candelario Santana on 09-16-2022 ALP [Catalytic activity/Vol] 81 U/L 45-117 [facility] [place] ALT [Catalytic activity/Vol] 19 U/L 13-56 [facility] [place] CO2 [Moles/Vol] 23.0 mmol/L 21.0-32.0 [facility] [place] Globulin (S) [Mass/Vol] 4.4 g/dL 2.2-4.2 [facility] Urea nitrogen/Creatinine [Mass ratio] 16.9 mg/mg 10-20 [facility] [place] Laboratory - Hematology and Cell countsOrdered By: Candelario Santana on 09-16-2022 Erythrocyte distribution width (RBC) [Entitic vol] 40.5 fL 35.1-43.9 [facility] Erythrocyte distribution width (RBC) [Ratio] 13.2 % 11.6-14.6 [facility] [place] Immature granulocytes/100 WBC (Bld) 0.400 % 0.0-0.9 [facility] [place] Comment on above: IG% - Immature Granu locytes (promyelocytes, myelocytes and metamyelocytes) > 1% indicates that a LEFT SHIFT is Present. MCH (RBC) [Entitic mass] 30.1 pg 27.0-32.0 [facility] [place] Nucleated RBC/100 WBC (Bld) [Ratio] 0 % 0-5 [facility] [place] MCHC Auto (RBC) [Mass/Vol]Or dered By: Candelario Santana on 09-16-2022 MCHC (RBC) [Mass/Vol] 34.8 g/dL 32-36 [facility] No Panel InformationOrdered By: Candelario Santana on 09-16-2022 Estimated GFR (MDRD) Amer 87 mL/min >60 [facility] [place] Comment on above: GFR Calc Estimated GFR (MDRD) Non-Af Amer 72 mL/min >60 [facility] [place] Comment on above: Non- GFR Calc Thyroid Stimulating Hormone (TSH) 4.20 uIU/mL 0.358-3.74 [facility] [place] Vitamin D 25-Hydroxy 26.7 ng/mL [facility] Comment on above: Vitamin D 25(OH) Sta tus Range Deficiency <20 ng/mL (50nmol/L) Insufficiency 20 - 30 ng/mL (50 - 75 nmol/L) Sufficiency 30 - 100 ng/mL (75 - 250 nmol/L) Toxicity >100 ng/mL (>250 nmol/L) Platelets bldOrdered By: Candelario Santana on 09-16-2022 Platelets (Bld) [#/Vol] 213 10*3/uL 150-450 [facility] [place] Serum or plasma albumin sabino urement (mass/volume)Ordered By: Candelario Santana on 09-16-2022 Albumin [Mass/Vol] 3.0 g/dL 3.2-5.0 [facility] Serum or plasma albumin/glob ulin mass ratioOrdered By: Candelario Santana 09-16-2022 Albumin/Globulin [Mass ratio] 0.7 {ratio} 0.9-2.4 [facility] Serum or plasma calcium sabino urement (mass/volume)Ordered By: Candelario Santana 09-16-2022 Calcium [Mass/Vol] 9.2 mg/dL 8.5-10.1 [facility] Serum or plasma cholesterol in HDL measurement (mass/volume)Ordered By: Candelario Santana 09-16-2022 Cholesterol in HDL [Mass/Vol] 58 mg/dL >40 [facility] Comment on above: The drugs N-Acetylcy steine and Metamizole may falsely depress this assay. Reference Range HDL <40 mg/dL Low HDL Cholesterol HDL >or= 60 mg/dL High HDL Cholesterol Serum or plasma cholesterol in VLDL measurement (mass/volume)Ordered By: Candelario Santana 09-16-2022 Cholesterol in VLDL [Mass/Vol] 18 mg/dL 5-40 [facility] [place] Serum or plasma creatinine m easurement (mass/volume)Ordered By: Candelario Santana 09-16-2022 Creatinine [Mass/Vol] 0.83 mg/dL 0.55-1.02 [facility] Comment on above: The validity of the calculated GFR & GFRAA in patients over 70 years has not been determined. Clinical correlation is essential. Serum or plasma low density lipoprotein (LDL) cholesterol measurement (mass/volume)Ordered By: Cnadelario Santana on 09-16-2022 Cholesterol in LDL [Mass/Vol] 103 mg/dL 0-130 [facility] [place] Serum or plasma urea nitroge n measurement (mass/volume)Ordered By: Candelario Santana on 09-16-2022 Urea nitrogen [Mass/Vol] 14 mg/dL 7-18 [facility] [place] Thin prep Papanicolaou smear with manual screeningOrdered By: Candelario Santana on 09-16-2022 Thin prep Papanicolaou smear with manual screening 21 U/L 15-37 [facility] [place] Thin prep Papanicolaou smear with manual screening 12 5-15 [facility] [place] Absolute lymphocyte countOrd ered By: Dr. Santana on 07-08-2022 Lymphocytes Auto (Unsp spec) [#/Vol] 1.66 10*3/uL 0.83-4.51 [facility] [place] Basophil percentageOrdered B y: Dr. Santana on 07-08-2022 Basophils/100 WBC (Bld) 0.8 % 0-1 [facility] Bilirubin [Mass/Vol] 1.20 mg/dL 0.20-1.00 [facility] Comment on above: For patients on eltr ombopag therapy, use of Dimension [place] TBIL is not recommended. Chloride [Moles/Vol] 104 mmol/L 98-107 [facility] Cholesterol [Mass/Vol] 176 mg/dL <200 [facility] Comment on above: <200 mg/dL Desirable 200-240 mg/dL Borderline >240 mg/dL High Risk Eosinophils/100 WBC (Bld) 9.7 % 0-5 [facility] [place] Glucose [Mass/Vol] 278 mg/dL 74-106 [facility] Comment on above: Glucose result great er than or equal to 200 mg/dLsuggests DIABETES MELLITUS per A.D.A. criteria. Neutrophils (Bld) [#/Vol] 2.5 10*3/uL 2.0-7.7 [facility] Neutrophils/100 WBC (Bld) 48.1 % 47-70 [facility] [place] Potassium [Moles/Vol] 3.4 mmol/L 3.5-5.1 [facility] Protein [Mass/Vol] 7.4 g/dL 6.4-8.2 [facility] Sodium [Moles/Vol] 138 mmol/L 136-145 [facility] Triglyceride [Mass/Vol] 85 mg/dL <199 [facility] Comment on above: The drugs N-Acetylcy steine and Metamizole may falsely depress this assay.Serum Triglycerides Reference Interval Normal <150 mg/dL Borderline high 150 - 199 mg/dL High 200 - 499 mg/dL Very High > or = 500 mg/dL WBC (Bld) [#/Vol] 5.1 10*3/uL 4.4-11.0 [facility] Blood erythrocytes count (nu mber/volume)Ordered By: Dr. Santana on 07-08-2022 RBC (Bld) [#/Vol] 3.75 10*6/uL 4.2-5.4 [facility] Blood hemoglobin measurement (mass/volume)Ordered By: Dr. Santana on 07-08-2022 Hemoglobin (Bld) [Mass/Vol] 11.6 g/dL 12.0-15.0 [facility] Blood lymphocytes/100 leukoc ytesOrdered By: Dr. Santana on 07-08-2022 Lymphocytes/100 WBC (Bld) 32.4 % 19-41 [facility] [place] Blood monocytes/100 leukocyt esOrdered By: Dr. Santana on 07-08-2022 Monocytes/100 WBC (Bld) 8.8 % 0-10 [facility] Blood platelet mean volumeOr dered By: Dr. Santana on 07-08-2022 Platelet mean volume (Bld) [Entitic vol] 10.3 fL 6.2-12.0 [facility] Determination of erythrocyte mean corpuscular volume (MCV)Ordered By: Dr. Santana on 07-08-2022 MCV (RBC) [Entitic vol] 90.1 fL 81-99 [facility] Hematocrit Auto (Bld) [Volum e fraction]Ordered By: Dr. Santana on 07-08-2022 Hematocrit (Bld) [Volume fraction] 33.8 % 37-47 [facility] Laboratory - Chemistry and C hemistry - challengeOrdered By: Dr. Santana on 07-08-2022 ALP [Catalytic activity/Vol] 99 U/L 45-117 [facility] ALT [Catalytic activity/Vol] 16 U/L 13-56 [facility] CO2 [Moles/Vol] 25.0 mmol/L 21.0-32.0 [facility] [place] Globulin (S) [Mass/Vol] 4.3 g/dL 2.2-4.2 [facility] Urea nitrogen/Creatinine [Mass ratio] 11.6 mg/mg 10-20 [facility] [place] Laboratory - Hematology and Cell countsOrdered By: Dr. Santana on 07-08-2022 Erythrocyte distribution width (RBC) [Entitic vol] 46.6 fL 35.1-43.9 [facility] Erythrocyte distribution width (RBC) [Ratio] 14.4 % 11.6-14.6 [facility] Immature granulocytes/100 WBC (Bld) 0.200 % 0.0-0.9 [facility] Comment on above: IG% - Immature Granu locytes (promyelocytes, myelocytes and metamyelocytes) > 1% indicates that a LEFT SHIFT is Present. MCH (RBC) [Entitic mass] 30.9 pg 27.0-32.0 [facility] Nucleated RBC/100 WBC (Bld) [Ratio] 0 % 0-5 [facility] MCHC Auto (RBC) [Mass/Vol]Or dered By: Dr. Santana on 07-08-2022 MCHC (RBC) [Mass/Vol] 34.3 g/dL 32-36 [facility] No Panel InformationOrdered By: Dr. Santana on 07-08-2022 Estimated GFR (MDRD) Amer 125 mL/min >60 [facility] Comment on above: GFR Calc Estimated GFR (MDRD) Non-Af Amer 103 mL/min >60 [facility] Comment on above: Non- GFR Calc Thyroid Stimulating Hormone (TSH) 5.16 uIU/mL 0.358-3.74 [facility] Vitamin D 25-Hydroxy 26.2 ng/mL [facility] Comment on above: Vitamin D 25(OH) Sta tus Range Deficiency <20 ng/mL (50nmol/L) Insufficiency 20 - 30 ng/mL (50 - 75 nmol/L) Sufficiency 30 - 100 ng/mL (75 - 250 nmol/L) Toxicity >100 ng/mL (>250 nmol/L) Platelets bldOrdered By: Dr. Santana on 07-08-2022 Platelets (Bld) [#/Vol] 171 10*3/uL 150-450 [facility] Serum or plasma albumin sabino urement (mass/volume)Ordered By: Dr. Santana on 07-08-2022 Albumin [Mass/Vol] 3.1 g/dL 3.2-5.0 [facility] Serum or plasma albumin/glob ulin mass ratioOrdered By: Dr. Santana on 07-08-2022 Albumin/Globulin [Mass ratio] 0.7 {ratio} 0.9-2.4 [facility] Serum or plasma calcium sabino urement (mass/volume)Ordered By: Dr. Santana on 07-08-2022 Calcium [Mass/Vol] 8.7 mg/dL 8.5-10.1 [facility] Serum or plasma cholesterol in HDL measurement (mass/volume)Ordered By: Dr. Santana on 07-08-2022 Cholesterol in HDL [Mass/Vol] 50 mg/dL >40 [facility] Comment on above: The drugs N-Acetylcy steine and Metamizole may falsely depress this assay. Reference Range HDL <40 mg/dL Low HDL Cholesterol HDL >or= 60 mg/dL High HDL Cholesterol Serum or plasma cholesterol in VLDL measurement (mass/volume)Ordered By: Dr. Santana on 07-08-2022 Cholesterol in VLDL [Mass/Vol] 17 mg/dL 5-40 [facility] Serum or plasma creatinine m easurement (mass/volume)Ordered By: Dr. Santana on 07-08-2022 Creatinine [Mass/Vol] 0.60 mg/dL 0.55-1.02 [facility] Comment on above: The validity of the calculated GFR & GFRAA in patients over 70 years has not been determined. Clinical correlation is essential. Serum or plasma low density lipoprotein (LDL) cholesterol measurement (mass/volume)Ordered By: Dr. Santana on 07-08-2022 Cholesterol in LDL [Mass/Vol] 109 mg/dL 0-130 [facility] Serum or plasma urea nitroge n measurement (mass/volume)Ordered By: Dr. Santana on 07-08-2022 Urea nitrogen [Mass/Vol] 7 mg/dL 7-18 [facility] Thin prep Papanicolaou smear with manual screeningOrdered By: Dr. Santana on 07-08-2022 Thin prep Papanicolaou smear with manual screening 20 U/L 15-37 [facility] Thin prep Papanicolaou smear with manual screening 9 5-15 [facility] No Panel Informationon 05-25 Thyroid Stimulating Hormone (TSH) 2.85 uIU/mL 0.358-3.74 [facility] Work Phone: Absolute lymphocyte counton 04-09-2022 Lymphocytes Auto (Unsp spec) [#/Vol] 2.49 10*3/uL 0.83-4.51 [facility] Work Phone: Basophil percentageon 2021 Basophils/100 WBC (Bld) 0.3 % 0-1 [facility] Work Phone: Bilirubin [Mass/Vol] 0.90 mg/dL 0.20-1.00 [facility] Work Phone: Comment on above: For patients on eltr ombopag therapy, use of Dimension [place] TBIL is not recommended. Chloride [Moles/Vol] 103 mmol/L 98-107 [facility] Work Phone: Cholesterol [Mass/Vol] 154 mg/dL <200 [facility] Work Phone: Comment on above: <200 mg/dL Desirable 200-240 mg/dL Borderline >240 mg/dL High Risk Eosinophils/100 WBC (Bld) 5.2 % 0-5 [facility] [place] Work Phone: Glucose [Mass/Vol] 337 mg/dL 74-106 [facility] Work Phone: Comment on above: Glucose result great er than or equal to 200 mg/dLsuggests DIABETES MELLITUS per A.D.A. criteria. Neutrophils (Bld) [#/Vol] 2.6 10*3/uL 2.0-7.7 [facility] [place] Work Phone: Neutrophils/100 WBC (Bld) 44.2 % 47-70 [facility] [place] Work Phone: Potassium [Moles/Vol] 3.9 mmol/L 3.5-5.1 [facility] Work Phone: Protein [Mass/Vol] 7.1 g/dL 6.4-8.2 [facility] Work Phone: Sodium [Moles/Vol] 135 mmol/L 136-145 [facility] Work Phone: Triglyceride [Mass/Vol] 105 mg/dL <199 [facility] Work Phone: Comment on above: The drugs N-Acetylcy steine and Metamizole may falsely depress this assay.Serum Triglycerides Reference Interval Normal <150 mg/dL Borderline high 150 - 199 mg/dL High 200 - 499 mg/dL Very High > or = 500 mg/dL WBC (Bld) [#/Vol] 6.0 10*3/uL 4.4-11.0 [facility] Work Phone: Blood erythrocytes count (nu mber/volume)on 04-09-2022 RBC (Bld) [#/Vol] 3.33 10*6/uL 4.2-5.4 [facility] Work Phone: Blood hemoglobin measurement (mass/volume)on 04-09-2022 Hemoglobin (Bld) [Mass/Vol] 10.0 g/dL 12.0-15.0 [facility] [place] Work Phone: Blood lymphocytes/100 leukoc yteson 04-09-2022 Lymphocytes/100 WBC (Bld) 41.8 % 19-41 [facility] [place] Work Phone: Blood monocytes/100 leukocyt eson 04-09-2022 Monocytes/100 WBC (Bld) 8.2 % 0-10 [facility] Work Phone: Blood platelet mean volumeon 04-09-2022 Platelet mean volume (Bld) [Entitic vol] 10.0 fL 6.2-12.0 [facility] [place] Work Phone: Determination of erythrocyte mean corpuscular volume (MCV)on 04-09-2022 MCV (RBC) [Entitic vol] 88.9 fL 81-99 [facility] Work Phone: Hematocrit Auto (Bld) [Volum e fraction]on 04-09-2022 Hematocrit (Bld) [Volume fraction] 29.6 % 37-47 [facility] [place] Work Phone: Laboratory - Chemistry and C hemistry - challengeon 04-09-2022 ALP [Catalytic activity/Vol] 101 U/L 45-117 [facility] [place] Work Phone: ALT [Catalytic activity/Vol] 20 U/L 13-56 [facility] [place] Work Phone: [phone] CO2 [Moles/Vol] 24.0 mmol/L 21.0-32.0 [facility] [place] Work Phone: Globulin (S) [Mass/Vol] 4.4 g/dL 2.2-4.2 [facility] Work Phone: Urea nitrogen/Creatinine [Mass ratio] 10.9 mg/mg 10-20 [facility] [place] Work Phone: Laboratory - Hematology and Cell countson 04-09-2022 Erythrocyte distribution width (RBC) [Entitic vol] 43.0 fL 35.1-43.9 [facility] Work Phone: Erythrocyte distribution width (RBC) [Ratio] 13.3 % 11.6-14.6 [facility] [place] Work Phone: Immature granulocytes/100 WBC (Bld) 0.300 % 0.0-0.9 [facility] [place] Work Phone: Comment on above: IG% - Immature Granu locytes (promyelocytes, myelocytes and metamyelocytes) > 1% indicates that a LEFT SHIFT is Present. MCH (RBC) [Entitic mass] 30.0 pg 27.0-32.0 [facility] [place] Work Phone: Nucleated RBC/100 WBC (Bld) [Ratio] 0 % 0-5 [facility] [place] Work Phone: MCHC Auto (RBC) [Mass/Vol]on 04-09-2022 MCHC (RBC) [Mass/Vol] 33.8 g/dL 32-36 [facility] Work Phone: No Panel Informationon 04-09 Estimated GFR (MDRD) Amer 99 mL/min >60 [facility] [place] Work Phone: Comment on above: GFR Calc Estimated GFR (MDRD) Non-Af Amer 82 mL/min >60 [facility] [place] Work Phone: Comment on above: Non- GFR Calc Thyroid Stimulating Hormone (TSH) 5.32 uIU/mL 0.358-3.74 [facility] [place] Work Phone: Vitamin D 25-Hydroxy 28.3 ng/mL [facility] Work Phone: Comment on above: Vitamin D 25(OH) Sta tus Range Deficiency <20 ng/mL (50nmol/L) Insufficiency 20 - 30 ng/mL (50 - 75 nmol/L) Sufficiency 30 - 100 ng/mL (75 - 250 nmol/L) Toxicity >100 ng/mL (>250 nmol/L) Platelets bldon 04-09-2022 Platelets (Bld) [#/Vol] 203 10*3/uL 150-450 [facility] [place] Work Phone: Serum or plasma albumin sabino urement (mass/volume)on 04-09-2022 Albumin [Mass/Vol] 2.7 g/dL 3.2-5.0 [facility] Work Phone: Serum or plasma albumin/glob ulin mass ratioon 04-09-2022 Albumin/Globulin [Mass ratio] 0.6 {ratio} 0.9-2.4 [facility] [place] Work Phone: Serum or plasma calcium sabino urement (mass/volume)on 04-09-2022 Calcium [Mass/Vol] 8.7 mg/dL 8.5-10.1 [facility] Work Phone: Serum or plasma cholesterol in HDL measurement (mass/volume)on 04-09-2022 Cholesterol in HDL [Mass/Vol] 43 mg/dL >40 [facility] [place] Work Phone: Comment on above: The drugs N-Acetylcy steine and Metamizole may falsely depress this assay. Reference Range HDL <40 mg/dL Low HDL Cholesterol HDL >or= 60 mg/dL High HDL Cholesterol Serum or plasma cholesterol in VLDL measurement (mass/volume)on 04-09-2022 Cholesterol in VLDL [Mass/Vol] 21 mg/dL 5-40 [facility] [place] Work Phone: Serum or plasma creatinine m easurement (mass/volume)on 04-09-2022 Creatinine [Mass/Vol] 0.74 mg/dL 0.55-1.02 [facility] Work Phone: Comment on above: The validity of the calculated GFR & GFRAA in patients over 70 years has not been determined. Clinical correlation is essential. Serum or plasma low density lipoprotein (LDL) cholesterol measurement (mass/volume)on 04-09-2022 Cholesterol in LDL [Mass/Vol] 90 mg/dL 0-130 [facility] [place] Work Phone: Serum or plasma urea nitroge n measurement (mass/volume)on 04-09-2022 Urea nitrogen [Mass/Vol] 8 mg/dL 7-18 [facility] [place] Work Phone: Thin prep Papanicolaou smear with manual screeningon 04-09-2022 Thin prep Papanicolaou smear with manual screening 22 U/L 15-37 [facility] [place] Work Phone: Thin prep Papanicolaou smear with manual screening 8 5-15 [facility] [place] Work Phone: Absolute lymphocyte counton 03-21-2022 Lymphocytes Auto (Unsp spec) [#/Vol] 1.58 10*3/uL 0.83-4.51 [facility] [place] Work Phone: Basophil percentageon 2021 Basophils/100 WBC (Bld) 0.2 % 0-1 [facility] Work Phone: Bilirubin [Mass/Vol] 1.60 mg/dL 0.20-1.00 [facility] Work Phone: Comment on above: For patients on eltr ombopag therapy, use of Dimension [place] TBIL is not recommended. Chloride [Moles/Vol] 108 mmol/L 98-107 [facility] Work Phone: Eosinophils/100 WBC (Bld) 0.0 % 0-5 [facility] [place] Work Phone: Glucose [Mass/Vol] 181 mg/dL 74-106 [facility] Work Phone: Comment on above: Fasting Glucose resu lt greater than or equal to 126 mg/dL suggests DIABETES MELLITUS per A.D.A. criteria. Neutrophils (Bld) [#/Vol] 8.6 10*3/uL 2.0-7.7 [facility] [place] Work Phone: Neutrophils/100 WBC (Bld) 79.8 % 47-70 [facility] [place] Work Phone: Potassium [Moles/Vol] 3.3 mmol/L 3.5-5.1 [facility] Work Phone: Protein [Mass/Vol] 6.4 g/dL 6.4-8.2 [facility] Work Phone: Sodium [Moles/Vol] 136 mmol/L 136-145 [facility] Work Phone: WBC (Bld) [#/Vol] 10.8 10*3/uL 4.4-11.0 [facility] Work Phone: Blood erythrocytes count (nu mber/volume)on 03-21-2022 RBC (Bld) [#/Vol] 3.29 10*6/uL 4.2-5.4 [facility] Work Phone: Blood hemoglobin measurement (mass/volume)on 03-21-2022 Hemoglobin (Bld) [Mass/Vol] 10.1 g/dL 12.0-15.0 [facility] [place] Work Phone: Blood lymphocytes/100 leukoc yteson 03-21-2022 Lymphocytes/100 WBC (Bld) 14.6 % 19-41 [facility] [place] Work Phone: Blood monocytes/100 leukocyt eson 03-21-2022 Monocytes/100 WBC (Bld) 4.4 % 0-10 [facility] Work Phone: Blood platelet mean volumeon 03-21-2022 Platelet mean volume (Bld) [Entitic vol] 9.9 fL 6.2-12.0 [facility] [place] Work Phone: Determination of erythrocyte mean corpuscular volume (MCV)on 03-21-2022 MCV (RBC) [Entitic vol] 89.1 fL 81-99 [facility] Work Phone: Glucose Glucometer (BldC) [M ass/Vol]on 03-21-2022 Glucose [Mass/Vol] 172 mg/dL 74-106 [facility] Work Phone: Comment on above: MANAGEMENT OF PATIEN T CARE PER NURSING PROTOCOL Hematocrit Auto (Bld) [Volum e fraction]on 03-21-2022 Hematocrit (Bld) [Volume fraction] 29.3 % 37-47 [facility] [place] Work Phone: Laboratory - Chemistry and C hemistry - challengeon 03-21-2022 ALP [Catalytic activity/Vol] 215 U/L 45-117 [facility] [place] Work Phone: ALT [Catalytic activity/Vol] 82 U/L 13-56 [facility] [place] Work Phone: CO2 [Moles/Vol] 22.0 mmol/L 21.0-32.0 [facility] [place] Work Phone: Globulin (S) [Mass/Vol] 4.2 g/dL 2.2-4.2 [facility] Work Phone: Lipase [Catalytic activity/Vol] 147 U/L 73-393 [facility] [place] Work Phone: Urea nitrogen/Creatinine [Mass ratio] 17.3 mg/mg 10-20 [facility] [place] Work Phone: Laboratory - Hematology and Cell countson 03-21-2022 Erythrocyte distribution width (RBC) [Entitic vol] 43.1 fL 35.1-43.9 [facility] Work Phone: Erythrocyte distribution width (RBC) [Ratio] 13.2 % 11.6-14.6 [facility] [place] Work Phone: Immature granulocytes/100 WBC (Bld) 1.000 % 0.0-0.9 [facility] [place] Work Phone: Comment on above: IG% - Immature Granu locytes (promyelocytes, myelocytes and metamyelocytes) > 1% indicates that a LEFT SHIFT is Present. MCH (RBC) [Entitic mass] 30.7 pg 27.0-32.0 [facility] [place] Work Phone: Nucleated RBC/100 WBC (Bld) [Ratio] 0 % 0-5 [facility] [place] Work Phone: MCHC Auto (RBC) [Mass/Vol]on 03-21-2022 MCHC (RBC) [Mass/Vol] 34.5 g/dL 32-36 [facility] Work Phone: No Panel Informationon 03-21 Estimated Creatinine Clearance Calc 37.24 ml/min [facility] [place] Work Phone: Estimated GFR (MDRD) Amer 131 mL/min >60 [facility] [place] Work Phone: Comment on above: GFR Calc Estimated GFR (MDRD) Non-Af Amer 108 mL/min >60 [facility] [place] Work Phone: Comment on above: Non- GFR Calc Platelets bldon 03-21-2022 Platelets (Bld) [#/Vol] 187 10*3/uL 150-450 [facility] [place] Work Phone: Serum or plasma albumin sabino urement (mass/volume)on 03-21-2022 Albumin [Mass/Vol] 2.2 g/dL 3.2-5.0 [facility] Work Phone: Serum or plasma albumin/glob ulin mass ratioon 03-21-2022 Albumin/Globulin [Mass ratio] 0.5 {ratio} 0.9-2.4 [facility] [place] Work Phone: Serum or plasma calcium sabino urement (mass/volume)on 03-21-2022 Calcium [Mass/Vol] 8.2 mg/dL 8.5-10.1 [facility] Work Phone: Serum or plasma creatinine m easurement (mass/volume)on 03-21-2022 Creatinine [Mass/Vol] 0.58 mg/dL 0.55-1.02 [facility] Work Phone: Comment on above: The validity of the calculated GFR & GFRAA in patients over 70 years has not been determined. Clinical correlation is essential. Serum or plasma urea nitroge n measurement (mass/volume)on 03-21-2022 Urea nitrogen [Mass/Vol] 10 mg/dL 7-18 [facility] [place] Work Phone: Thin prep Papanicolaou smear with manual screeningon 03-21-2022 Thin prep Papanicolaou smear with manual screening 65 U/L 15-37 [facility] [place] Work Phone: Thin prep Papanicolaou smear with manual screening 6 5-15 [facility] [place] Work Phone: Absolute lymphocyte counton 03-20-2022 Lymphocytes Auto (Unsp spec) [#/Vol] 1.85 10*3/uL 0.83-4.51 [facility] [place] Work Phone: Basophil percentageon 2021 Basophil percentage >100 SEEN /hpf 0-5 [facility] Work Phone: Basophils/100 WBC (Bld) 0.2 % 0-1 [facility] Work Phone: Bilirubin [Mass/Vol] 3.90 mg/dL 0.20-1.00 [facility] Work Phone: Comment on above: For patients on eltr ombopag therapy, use of Dimension [place] TBIL is not recommended. Chloride [Moles/Vol] 102 mmol/L 98-107 [facility] Work Phone: [phone] Eosinophils/100 WBC (Bld) 0.6 % 0-5 [facility] [place] Work Phone: Glucose [Mass/Vol] 192 mg/dL 74-106 [facility] Work Phone: Comment on above: Fasting Glucose resu lt greater than or equal to 126 mg/dL suggests DIABETES MELLITUS per A.D.A. criteria. Neutrophils (Bld) [#/Vol] 16.2 10*3/uL 2.0-7.7 [facility] [place] Work Phone: Neutrophils/100 WBC (Bld) 82.7 % 47-70 [facility] [place] Work Phone: Potassium [Moles/Vol] 3.3 mmol/L 3.5-5.1 [facility] Work Phone: Comment on above: Slight Hemolysis, Re sult may be falsely increased. Protein [Mass/Vol] 7.3 g/dL 6.4-8.2 [facility] Work Phone: Sodium [Moles/Vol] 133 mmol/L 136-145 [facility] Work Phone: WBC (Bld) [#/Vol] 19.5 10*3/uL 4.4-11.0 [facility] Work Phone: Bilirubin Test strip Ql (U)o n 03-20-2022 Bilirubin Ql (U) 3 mg/dL Negative [facility] [place] Work Phone: Comment on above: COLOR OF URINE MAY A FFECT DIPSTICK RESULTS. Blood erythrocytes count (nu mber/volume)on 03-20-2022 RBC (Bld) [#/Vol] 3.64 10*6/uL 4.2-5.4 [facility] Work Phone: Blood hemoglobin measurement (mass/volume)on 03-20-2022 Hemoglobin (Bld) [Mass/Vol] 11.6 g/dL 12.0-15.0 [facility] [place] Work Phone: Blood lymphocytes/100 leukoc yteson 03-20-2022 Lymphocytes/100 WBC (Bld) 9.5 % 19-41 [facility] [place] Work Phone: Blood monocytes/100 leukocyt eson 03-20-2022 Monocytes/100 WBC (Bld) 6.0 % 0-10 [facility] Work Phone: Blood platelet mean volumeon 03-20-2022 Platelet mean volume (Bld) [Entitic vol] 10.6 fL 6.2-12.0 [facility] [place] Work Phone: Blood platelet morphology de termination (nominal result)on 03-20-2022 Platelet morphology finding Nom (Bld) CLUMPED [facility] [place] Work Phone: Determination of erythrocyte mean corpuscular volume (MCV)on 03-20-2022 MCV (RBC) [Entitic vol] 88.7 fL 81-99 [facility] Work Phone: Direct bilirubinon 2 Bilirubin.direct [Mass/Vol] 2.33 mg/dL 0.00-0.30 [facility] [place] Work Phone: Hematocrit Auto (Bld) [Volum e fraction]on 03-20-2022 Hematocrit (Bld) [Volume fraction] 32.3 % 37-47 [facility] [place] Work Phone: Ketones Test strip Ql (U)on 03-20-2022 Ketones Ql (U) 15 mg/dl Negative [facility] [place] Work Phone: Laboratory - Chemistry and C hemistry - challengeon 03-20-2022 ALP [Catalytic activity/Vol] 266 U/L 45-117 [facility] [place] Work Phone: ALT [Catalytic activity/Vol] 108 U/L 13-56 [facility] [place] Work Phone: CO2 [Moles/Vol] 22.0 mmol/L 21.0-32.0 [facility] [place] Work Phone: [phone] Globulin (S) [Mass/Vol] 4.7 g/dL 2.2-4.2 [facility] Work Phone: Lipase [Catalytic activity/Vol] 62474 U/L 73-393 [facility] [place] Work Phone: Magnesium [Mass/Vol] 2.0 mg/dL 1.6-2.6 [facility] Work Phone: Comment on above: Moderate Hemolysis, Result may be falsely increased. Urea nitrogen/Creatinine [Mass ratio] 30.4 mg/mg 10-20 [facility] [place] Work Phone: Laboratory - Hematology and Cell countson 03-20-2022 Erythrocyte distribution width (RBC) [Entitic vol] 42.5 fL 35.1-43.9 [facility] Work Phone: Erythrocyte distribution width (RBC) [Ratio] 13.2 % 11.6-14.6 [facility] [place] Work Phone: Immature granulocytes/100 WBC (Bld) 1.000 % 0.0-0.9 [facility] [place] Work Phone: Comment on above: IG% - Immature Granu locytes (promyelocytes, myelocytes and metamyelocytes) > 1% indicates that a LEFT SHIFT is Present. MCH (RBC) [Entitic mass] 31.9 pg 27.0-32.0 [facility] [place] Work Phone: Nucleated RBC/100 WBC (Bld) [Ratio] 0 % 0-5 [facility] [place] Work Phone: MCHC Auto (RBC) [Mass/Vol]on 03-20-2022 MCHC (RBC) [Mass/Vol] 35.9 g/dL 32-36 [facility] Work Phone: Mucus LM Ql (Urine sed)on Mucus Ql (Urine sed) 0 SEEN /hpf [facility] Work Phone: Nitrite Test strip Ql (U)on 03-20-2022 Nitrite Ql (U) Negative Negative [facility] [place] Work Phone: No Panel Informationon 03-20 Estimated Creatinine Clearance Calc 37.24 ml/min [facility] [place] Work Phone: Estimated GFR (MDRD) Amer 127 mL/min >60 [facility] [place] Work Phone: Comment on above: GFR Calc Estimated GFR (MDRD) Non-Af Amer 105 mL/min >60 [facility] [place] Work Phone: Comment on above: Non- GFR Calc Thyroid Stimulating Hormone (TSH) 7.14 uIU/mL 0.358-3.74 [facility] [place] Work Phone: Platelets bldon 03-20-2022 Platelets (Bld) [#/Vol] 227 10*3/uL 150-450 [facility] [place] Work Phone: Protein Test strip Ql (U)on 03-20-2022 Protein Ql (U) 100 mg/dl Negative [facility] [place] Work Phone: Serum or plasma albumin sabino urement (mass/volume)on 03-20-2022 Albumin [Mass/Vol] 2.6 g/dL 3.2-5.0 [facility] Work Phone: Serum or plasma calcium sabino urement (mass/volume)on 03-20-2022 Calcium [Mass/Vol] 9.0 mg/dL 8.5-10.1 [facility] Work Phone: Serum or plasma creatinine m easurement (mass/volume)on 03-20-2022 Creatinine [Mass/Vol] 0.59 mg/dL 0.55-1.02 [facility] Work Phone: Comment on above: The validity of the calculated GFR & GFRAA in patients over 70 years has not been determined. Clinical correlation is essential. Serum or plasma urea nitroge n measurement (mass/volume)on 03-20-2022 Urea nitrogen [Mass/Vol] 18 mg/dL 7-18 [facility] [place] Work Phone: Squamous epithelial cells de tection in urine sediment by light microscopyon 03-20-2022 Epithelial cells.squamous LM Ql (Urine sed) 0-5 SEEN /hpf 5-10 [facility] [place] Work Phone: Thin prep Papanicolaou smear with manual screeningon 03-20-2022 Thin prep Papanicolaou smear with manual screening 133 U/L 15-37 [facility] [place] Work Phone: Comment on above: Slight Hemolysis, Re sult may be falsely increased. Thin prep Papanicolaou smear with manual screening 9 5-15 [facility] [place] Work Phone: Urine blood detectionon 02-21 RBC Ql (U) 250 /ul Negative [facility] [place] Work Phone: RBC Ql (U) 5-10 SEEN /hpf 0-5 [facility] [place] Work Phone: Urine clarityon 03-20-2022 Clarity (U) Cloudy Clear [facility] [place] Work Phone: Urine color determinationon 03-20-2022 Color (U) Yellow Yellow [facility] [place] Work Phone: Urine glucose detectionon Glucose Ql (U) 50 mg/dl Normal [facility] [place] Work Phone: Urine leukocyte esterase det ection by dipstickon 03-20-2022 Leukocyte esterase Test strip Ql (U) 500 /ul Negative [facility] [place] Work Phone: Urine pHon 03-20-2022 pH (U) 6.0 [pH] 5.0 - 8.0 [facility] [place] Work Phone: Urine sediment bacteria coun t by microscopy (number/high power field)on 03-20-2022 Bacteria LM.HPF (Urine sed) [#/Area] 4 /[HPF] None Seen [facility] [place] Work Phone: Urine specific gravity measu rementon 03-20-2022 Specific gravity (U) [Rel density] 1.015 1.002-1.030 [facility] [place] Work Phone: Urobilinogen Auto test strip Ql (U)on 03-20-2022 Urobilinogen Ql (U) 12 mg/dl Normal [facility] Work Phone: Whole blood hemoglobin A1c/t otal hemoglobin ratio (mass fraction)on 03-20-2022 HbA1c (Bld) [Mass fraction] 6.7 % 3.8-5.6 [facility] [place] Work Phone: Comment on above: Normal < 5.7 % Predi abetic 5.7 - 6.4 % Diabetic >or= 6.5 % Please note range changes. Absolute lymphocyte counton 12-22-2021 Lymphocytes Auto (Unsp spec) [#/Vol] 2.26 10*3/uL 0.83-4.51 [facility] [place] Work Phone: Basophil percentageon 2021 Basophils/100 WBC (Bld) 0.5 % 0-1 [facility] Work Phone: Eosinophils/100 WBC (Bld) 2.7 % 0-5 [facility] [place] Work Phone: Neutrophils (Bld) [#/Vol] 2.5 10*3/uL 2.0-7.7 [facility] [place] Work Phone: Neutrophils/100 WBC (Bld) 46.1 % 47-70 [facility] [place] Work Phone: [phone] WBC (Bld) [#/Vol] 5.5 10*3/uL 4.4-11.0 [facility] Work Phone: Blood erythrocytes count (nu mber/volume)on 12-22-2021 RBC (Bld) [#/Vol] 3.32 10*6/uL 4.2-5.4 [facility] Work Phone: Blood hemoglobin measurement (mass/volume)on 12-22-2021 Hemoglobin (Bld) [Mass/Vol] 10.4 g/dL 12.0-15.0 [facility] [place] Work Phone: Blood lymphocytes/100 leukoc yteson 12-22-2021 Lymphocytes/100 WBC (Bld) 41.2 % 19-41 [facility] [place] Work Phone: Blood monocytes/100 leukocyt eson 12-22-2021 Monocytes/100 WBC (Bld) 9.1 % 0-10 [facility] Work Phone: Blood platelet mean volumeon 12-22-2021 Platelet mean volume (Bld) [Entitic vol] 9.6 fL 6.2-12.0 [facility] [place] Work Phone: Determination of erythrocyte mean corpuscular volume (MCV)on 12-22-2021 MCV (RBC) [Entitic vol] 90.7 fL 81-99 [facility] Work Phone: Hematocrit Auto (Bld) [Volum e fraction]on 12-22-2021 Hematocrit (Bld) [Volume fraction] 30.1 % 37-47 [facility] [place] Work Phone: Hemoglobin in reticulocytes (mass per reticulocyte)on 12-22-2021 Hemoglobin (Reticulocytes) [Entitic mass] 34.0 pg 30-35 [facility] [place] Work Phone: Iron measurement (mass/mass) on 12-22-2021 Iron (Unsp spec) [Mass/Mass] 56 ug/dL 50-170 [facility] [place] Work Phone: Laboratory - Chemistry and C hemistry - challengeon 12-22-2021 Cobalamin (Vitamin B12) [Mass/Vol] 1270 pg/mL 211-911 [facility] [place] Work Phone: Laboratory - Hematology and Cell countson 12-22-2021 Erythrocyte distribution width (RBC) [Entitic vol] 44.7 fL 35.1-43.9 [facility] Work Phone: Erythrocyte distribution width (RBC) [Ratio] 13.5 % 11.6-14.6 [facility] [place] Work Phone: Immature granulocytes/100 WBC (Bld) 0.400 % 0.0-0.9 [facility] [place] Work Phone: Comment on above: IG% - Immature Granu locytes (promyelocytes, myelocytes and metamyelocytes) > 1% indicates that a LEFT SHIFT is Present. MCH (RBC) [Entitic mass] 31.3 pg 27.0-32.0 [facility] [place] Work Phone: Nucleated RBC/100 WBC (Bld) [Ratio] 0 % 0-5 [facility] [place] Work Phone: MCHC Auto (RBC) [Mass/Vol]on 12-22-2021 MCHC (RBC) [Mass/Vol] 34.6 g/dL 32-36 [facility] Work Phone: No Panel Informationon 12-22 Immature Reticulocyte Fraction 3.20 % 3.00-15.90 [facility] [place] Work Phone: Reticulocyte Count 1.42 % 0.5-1.5 [facility] Work Phone: Total Iron Binding Capacity 288 ug/dL 250-450 [facility] [place] Work Phone: Platelets bldon 12-22-2021 Platelets (Bld) [#/Vol] 217 10*3/uL 150-450 [facility] [place] Work Phone: Serum or plasma ferritin uzma surement (mass/volume)on 12-22-2021 Ferritin [Mass/Vol] 20 ng/mL 8-252 [facility] Work Phone: Serum or plasma folate measu rement (mass/volume)on 12-22-2021 Folate [Mass/Vol] 16.20 ng/mL 3.1-55.4 [facility] Work Phone: Serum or plasma iron saturat ion measurement (mass fraction)on 12-22-2021 Iron saturation [Mass fraction] 19.4 % 15.0-55.0 [facility] [place] Work Phone: Absolute lymphocyte counton 12-15-2021 Lymphocytes Auto (Unsp spec) [#/Vol] 2.22 10*3/uL 0.83-4.51 [facility] [place] Work Phone: Basophil percentageon 2021 Basophils/100 WBC (Bld) 0.6 % 0-1 [facility] Work Phone: Bilirubin [Mass/Vol] 1.10 mg/dL 0.20-1.00 [facility] Work Phone: Comment on above: For patients on eltr ombopag therapy, use of Dimension [place] TBIL is not recommended. Chloride [Moles/Vol] 109 mmol/L 98-107 [facility] Work Phone: Cholesterol [Mass/Vol] 160 mg/dL <200 [facility] Work Phone: Comment on above: <200 mg/dL Desirable 200-240 mg/dL Borderline >240 mg/dL High Risk Eosinophils/100 WBC (Bld) 2.4 % 0-5 [facility] Work Phone: Glucose [Mass/Vol] 248 mg/dL 74-106 [facility] Work Phone: Comment on above: Glucose result great er than or equal to 200 mg/dLsuggests DIABETES MELLITUS per A.D.A. criteria. Neutrophils (Bld) [#/Vol] 2.1 10*3/uL 2.0-7.7 [facility] Work Phone: Neutrophils/100 WBC (Bld) 41.5 % 47-70 [facility] Work Phone: Potassium [Moles/Vol] 3.8 mmol/L 3.5-5.1 [facility] Work Phone: Protein [Mass/Vol] 7.1 g/dL 6.4-8.2 [facility] Work Phone: Sodium [Moles/Vol] 140 mmol/L 136-145 [facility] Work Phone: Triglyceride [Mass/Vol] 67 mg/dL <199 [facility] Work Phone: Comment on above: The drugs N-Acetylcy steine and Metamizole may falsely depress this assay.Serum Triglycerides Reference Interval Normal <150 mg/dL Borderline high 150 - 199 mg/dL High 200 - 499 mg/dL Very High > or = 500 mg/dL WBC (Bld) [#/Vol] 5.0 10*3/uL 4.4-11.0 [facility] Work Phone: Blood erythrocytes count (nu mber/volume)on 12-15-2021 RBC (Bld) [#/Vol] 3.18 10*6/uL 4.2-5.4 [facility]: Blood hemoglobin measurement (mass/volume)on 12-15-2021 Hemoglobin (Bld) [Mass/Vol] 9.9 g/dL 12.0-15.0 [facility] Work Phone: Blood lymphocytes/100 leukoc yteson 12-15-2021 Lymphocytes/100 WBC (Bld) 44.8 % 19-41 [facility] Work Phone: Blood monocytes/100 leukocyt eson 12-15-2021 Monocytes/100 WBC (Bld) 10.5 % 0-10 [facility] Work Phone: Blood platelet mean volumeon 12-15-2021 Platelet mean volume (Bld) [Entitic vol] 10.1 fL 6.2-12.0 [facility] Work Phone: Determination of erythrocyte mean corpuscular volume (MCV)on 12-15-2021 MCV (RBC) [Entitic vol] 90.6 fL 81-99 [facility] Work Phone: Hematocrit Auto (Bld) [Volum e fraction]on 12-15-2021 Hematocrit (Bld) [Volume fraction] 28.8 % 37-47 [facility] Work Phone: Laboratory - Chemistry and C hemistry - challengeon 12-15-2021 ALP [Catalytic activity/Vol] 98 U/L 45-117 [facility] Work Phone: [phone] ALT [Catalytic activity/Vol] 27 U/L 13-56 [facility] Work Phone: [phone] CO2 [Moles/Vol] 23.0 mmol/L 21.0-32.0 [facility] Work Phone: [phone] Globulin (S) [Mass/Vol] 4.1 g/dL 2.2-4.2 [facility] Work Phone: [phone] Urea nitrogen/Creatinine [Mass ratio] 14.4 mg/mg 10-20 [facility] Work Phone: [phone] Laboratory - Hematology and Cell countson 12-15-2021 Erythrocyte distribution width (RBC) [Entitic vol] 46.1 fL 35.1-43.9 [facility] Work Phone: [phone] Erythrocyte distribution width (RBC) [Ratio] 13.8 % 11.6-14.6 [facility] Work Phone: [phone] Immature granulocytes/100 WBC (Bld) 0.200 % 0.0-0.9 [facility] Work Phone: Comment on above: IG% - Immature Granu locytes (promyelocytes, myelocytes and metamyelocytes) > 1% indicates that a LEFT SHIFT is Present. MCH (RBC) [Entitic mass] 31.1 pg 27.0-32.0 [facility] Work Phone: [phone] Nucleated RBC/100 WBC (Bld) [Ratio] 0 % 0-5 [facility] Work Phone: [phone] MCHC Auto (RBC) [Mass/Vol]on 12-15-2021 MCHC (RBC) [Mass/Vol] 34.4 g/dL 32-36 [facility] Work Phone: No Panel Informationon 12-15 Estimated GFR (MDRD) Amer 95 mL/min >60 [facility] Work Phone: Comment on above: GFR Calc Estimated GFR (MDRD) Non-Af Amer 79 mL/min >60 [facility] Work Phone: Comment on above: Non- GFR Calc Thyroid Stimulating Hormone (TSH) 4.10 uIU/mL 0.358-3.74 [facility] Work Phone: Vitamin D 25-Hydroxy 27.0 ng/mL [facility] Work Phone: Comment on above: Vitamin D 25(OH) Sta tus Range Deficiency <20 ng/mL (50nmol/L) Insufficiency 20 - 30 ng/mL (50 - 75 nmol/L) Sufficiency 30 - 100 ng/mL (75 - 250 nmol/L) Toxicity >100 ng/mL (>250 nmol/L) Platelets bldon 12-15-2021 Platelets (Bld) [#/Vol] 199 10*3/uL 150-450 [facility] Work Phone: Serum or plasma albumin sabino urement (mass/volume)on 12-15-2021 Albumin [Mass/Vol] 3.0 g/dL 3.2-5.0 [facility] Work Phone: Serum or plasma albumin/glob ulin mass ratioon 12-15-2021 Albumin/Globulin [Mass ratio] 0.7 {ratio} 0.9-2.4 [facility] Work Phone: Serum or plasma calcium sabino urement (mass/volume)on 12-15-2021 Calcium [Mass/Vol] 8.3 mg/dL 8.5-10.1 [facility] Work Phone: Serum or plasma cholesterol in HDL measurement (mass/volume)on 12-15-2021 Cholesterol in HDL [Mass/Vol] 52 mg/dL >40 [facility] Work Phone: Comment on above: The drugs N-Acetylcy steine and Metamizole may falsely depress this assay. Reference Range HDL <40 mg/dL Low HDL Cholesterol HDL >or= 60 mg/dL High HDL Cholesterol Serum or plasma cholesterol in VLDL measurement (mass/volume)on 12-15-2021 Cholesterol in VLDL [Mass/Vol] 13 mg/dL 5-40 [facility] Work Phone: Serum or plasma creatinine m easurement (mass/volume)on 12-15-2021 Creatinine [Mass/Vol] 0.76 mg/dL 0.55-1.02 [facility] Work Phone: Comment on above: The validity of the calculated GFR & GFRAA in patients over 70 years has not been determined. Clinical correlation is essential. Serum or plasma low density lipoprotein (LDL) cholesterol measurement (mass/volume)on 12-15-2021 Cholesterol in LDL [Mass/Vol] 95 mg/dL 0-130 [facility] Work Phone: Serum or plasma urea nitroge n measurement (mass/volume)on 12-15-2021 Urea nitrogen [Mass/Vol] 11 mg/dL 7-18 [facility] Work Phone: Thin prep Papanicolaou smear with manual screeningon 12-15-2021 Thin prep Papanicolaou smear with manual screening 30 U/L 15-37 [facility] Work Phone: Thin prep Papanicolaou smear with manual screening 8 5-15 [facility] Work Phone: Basophil percentageon 2021 Chloride [Moles/Vol] 102 mmol/L 98-107 [facility] Work Phone: Glucose [Mass/Vol] 199 mg/dL 74-106 [facility] Work Phone: Comment on above: Fasting Glucose resu lt greater than or equal to 126 mg/dL suggests DIABETES MELLITUS per A.D.A. criteria. Potassium [Moles/Vol] 4.6 mmol/L 3.5-5.1 [facility] Work Phone: Sodium [Moles/Vol] 132 mmol/L 136-145 [facility] Work Phone: Laboratory - Chemistry and C hemistry - challengeon 09-24-2021 CO2 [Moles/Vol] 24.0 mmol/L 21.0-32.0 [facility] Work Phone: Urea nitrogen/Creatinine [Mass ratio] 16.5 mg/mg 10-20 [facility] Work Phone: No Panel Informationon 09-24 Estimated GFR (MDRD) Amer 111 mL/min >60 [facility] Work Phone: Comment on above: GFR Calc Estimated GFR (MDRD) Non-Af Amer 92 mL/min >60 [facility] Work Phone: Comment on above: Non- GFR Calc Serum or plasma calcium sabino urement (mass/volume)on 09-24-2021 Calcium [Mass/Vol] 8.9 mg/dL 8.5-10.1 [facility] Work Phone: Serum or plasma creatinine m easurement (mass/volume)on 09-24-2021 Creatinine [Mass/Vol] 0.67 mg/dL 0.55-1.02 [facility] Work Phone: Comment on above: The validity of the calculated GFR & GFRAA in patients over 70 years has not been determined. Clinical correlation is essential. Serum or plasma urea nitroge n measurement (mass/volume)on 09-24-2021 Urea nitrogen [Mass/Vol] 11 mg/dL 7-18 [facility] Work Phone: Thin prep Papanicolaou smear with manual screeningon 09-24-2021 Thin prep Papanicolaou smear with manual screening 6 5-15 [facility] Work Phone: Absolute lymphocyte counton 09-15-2021 Lymphocytes Auto (Unsp spec) [#/Vol] 3.60 10*3/uL 0.83-4.51 [facility] Work Phone: Basophil percentageon 2021 Basophils/100 WBC (Bld) 0.6 % 0-1 [facility] Work Phone: Bilirubin [Mass/Vol] 1.40 mg/dL 0.20-1.00 [facility] Work Phone: Comment on above: For patients on eltr ombopag therapy, use of Dimension [place] TBIL is not recommended. Chloride [Moles/Vol] 103 mmol/L 98-107 [facility] Work Phone: Eosinophils/100 WBC (Bld) 1.6 % 0-5 [facility] Work Phone: Glucose [Mass/Vol] 315 mg/dL 74-106 [facility] Work Phone: Comment on above: Glucose result great er than or equal to 200 mg/dLsuggests DIABETES MELLITUS per A.D.A. criteria. Neutrophils (Bld) [#/Vol] 3.7 10*3/uL 2.0-7.7 [facility] Work Phone: Neutrophils/100 WBC (Bld) 45.5 % 47-70 [facility] Work Phone: Potassium [Moles/Vol] 3.3 mmol/L 3.5-5.1 [facility] Work Phone: Protein [Mass/Vol] 8.0 g/dL 6.4-8.2 [facility] Work Phone: Sodium [Moles/Vol] 135 mmol/L 136-145 [facility] Work Phone: WBC (Bld) [#/Vol] 8.1 10*3/uL 4.4-11.0 [facility] Work Phone: Blood erythrocytes count (nu mber/volume)on 09-15-2021 RBC (Bld) [#/Vol] 3.86 10*6/uL 4.2-5.4 [facility] Work [facility]: Blood hemoglobin measurement (mass/volume)on 01-24-2022 Hemoglobin (Bld) [Mass/Vol] 12.2 g/dL 12.0-15.0 [facility] Work Phone: Blood lymphocytes/100 leukoc yteson 09-15-2021 Lymphocytes/100 WBC (Bld) 44.3 % 19-41 [facility] Work Phone: Blood monocytes/100 leukocyt eson 09-15-2021 Monocytes/100 WBC (Bld) 7.8 % 0-10 [facility] Work Phone: Blood platelet mean volumeon 09-15-2021 Platelet mean volume (Bld) [Entitic vol] 9.9 fL 6.2-12.0 [facility] Work Phone: Determination of erythrocyte mean corpuscular volume (MCV)on 09-15-2021 MCV (RBC) [Entitic vol] 87.8 fL 81-99 [facility] Work Phone: Hematocrit Auto (Bld) [Volum e fraction]on 09-15-2021 Hematocrit (Bld) [Volume fraction] 33.9 % 37-47 [facility] Work Phone: Laboratory - Chemistry and C hemistry - challengeon 09-15-2021 ALP [Catalytic activity/Vol] 131 U/L 45-117 [facility] Work Phone: ALT [Catalytic activity/Vol] 23 U/L 13-56 [facility] Work Phone: CO2 [Moles/Vol] 24.0 mmol/L 21.0-32.0 [facility] Work Phone: Globulin (S) [Mass/Vol] 4.9 g/dL 2.2-4.2 [facility] Work Phone: Urea nitrogen/Creatinine [Mass ratio] 15.6 mg/mg 10-20 [facility] Work Phone: Laboratory - Hematology and Cell countson 09-15-2021 Erythrocyte distribution width (RBC) [Entitic vol] 43.9 fL 35.1-43.9 [facility] Work Phone: Erythrocyte distribution width (RBC) [Ratio] 13.8 % 11.6-14.6 [facility] Work Phone: Immature granulocytes/100 WBC (Bld) 0.200 % 0.0-0.9 [facility] Work Phone: Comment on above: IG% - Immature Granu locytes (promyelocytes, myelocytes and metamyelocytes) > 1% indicates that a LEFT SHIFT is Present. MCH (RBC) [Entitic mass] 31.6 pg 27.0-32.0 [facility] Work Phone: Nucleated RBC/100 WBC (Bld) [Ratio] 0 % 0-5 [facility] Work Phone: MCHC Auto (RBC) [Mass/Vol]on 09-15-2021 MCHC (RBC) [Mass/Vol] 36.0 g/dL 32-36 [facility] Work Phone: No Panel Informationon 09-15 Estimated GFR (MDRD) Amer 104 mL/min >60 [facility] Work Phone: Comment on above: GFR Calc Estimated GFR (MDRD) Non-Af Amer 86 mL/min >60 [facility] Work Phone: Comment on above: Non- GFR Calc Thyroid Stimulating Hormone (TSH) 6.85 uIU/mL 0.358-3.74 [facility] Work Phone: Vitamin D 25-Hydroxy 29.7 ng/mL [facility] Work Phone: Comment on above: Vitamin D 25(OH) Sta tus Range Deficiency <20 ng/mL (50nmol/L) Insufficiency 20 - 30 ng/mL (50 - 75 nmol/L) Sufficiency 30 - 100 ng/mL (75 - 250 nmol/L) Toxicity >100 ng/mL (>250 nmol/L) Platelets bldon 09-15-2021 Platelets (Bld) [#/Vol] 220 10*3/uL 150-450 [facility] Work Phone: Serum or plasma albumin sabino urement (mass/volume)on 09-15-2021 Albumin [Mass/Vol] 3.1 g/dL 3.2-5.0 [facility] Work Phone: Serum or plasma albumin/glob ulin mass ratioon 09-15-2021 Albumin/Globulin [Mass ratio] 0.6 {ratio} 0.9-2.4 [facility] Work Phone: Serum or plasma calcium sabino urement (mass/volume)on 09-15-2021 Calcium [Mass/Vol] 8.9 mg/dL 8.5-10.1 [facility] Work Phone: Serum or plasma creatinine m easurement (mass/volume)on 09-15-2021 Creatinine [Mass/Vol] 0.71 mg/dL 0.55-1.02 [facility] Work Phone: Comment on above: The validity of the calculated GFR & GFRAA in patients over 70 years has not been determined. Clinical correlation is essential. Serum or plasma urea nitroge n measurement (mass/volume)on 09-15-2021 Urea nitrogen [Mass/Vol] 11 mg/dL 7-18 [facility] Work Phone: Thin prep Papanicolaou smear with manual screeningon 09-15-2021 Thin prep Papanicolaou smear with manual screening 26 U/L 15-37 [facility] Work Phone: Thin prep Papanicolaou smear with manual screening 8 5-15 [facility] Work Phone: NM Myocardial Perf Imaging M ulti Specton 02-15-2017 NM Myocardial Perf Imaging Multi Spect Patient Name: SHASHI OSWALD Nuc Med Exam Date/Time 02/15/2017 10:12:43 EDT Exam NM Myocardial Perf Imaging Multi Spect Ordering Physician MD TRENA, JOE Robert Accession Number [id number] CPT4 Codes 18316 (), 65209 (NM EKG TREADMILL - NUCLEAR) Reason For Exam CHEST PAIN, ACUTE CORONARY SYNDROME SUSPECT Report *Nuclear Cardiology* [address] [address] Fax #: [email or web address] --- Nuclear Stress Myocardial Perfusion Study Regadenoson Protocol Gated SPECT Patient: Shashi Oswald Height: (61 in) Weight: (141.9 lb) : 1945 Age: 71 Gender: F Study Date: 02/15/2017 Accession#: Patient Room #: *ORDERING PHYSICIAN: * Joe Hein *SUPERVISING PHYSICIAN: * Raymundo Murphy, *RN: * Damaris Bright MD *RADIOLOGIST: * Jazmin Diego MD *NUCLEAR TECH: * Deepti Sanchez *READING PHYSICIAN: * Ash Orourke MD, [facility] --- Indications: Chest pain. --- Summary: 1. [...] peak heart rate [place] blood [place] [address] mm Hg/min. The patient experienced no chest [...] pm Signed by: MD. BRYCE, ASH BEEBE Normal [facility] Yifan Pereraon [place] [facility] Patient Name: SHASHI OSWALD Nuc Med Exam Date/Time 02/15/2017 08:18:01 EDT Exam [place] [facility] Ordering Physician YIFAN PERERA Accession Number [id number] Reason For Exam Yifan perera Report --- [...] peak heart rate and blood pressure was [address] mm Hg/min. The patient experienced no chest [...] Date and Time: 02/03/2018 9:58 Transcribed By:ROSALINDA Normal [facility] Basic Metabolic Panelon 06-2 Anion gap 12 mmol/L Normal [facility] Comment on above: Performed By: #### H EMOG, BMP3, TROPN, LIPD2, TSH4, HA1C2 ####[place] [address] Creatinine 0.62 mg/dL Normal 0.55-1.40 [facility] Comment on above: Performed By: #### H EMOG, BMP3, TROPN, LIPD2, TSH4, HA1C2 ####[address] [address] eGFR (black) mL/min/{1.73_m2} Normal >60 [facility] Comment on above: Performed By: #### H EMOG, BMP3, TROPN, LIPD2, TSH4, HA1C2 ####[address] [address] eGFR (non-black) mL/min/{1.73_m2} Normal >60 [facility] Comment on above: Result Comment: Sour ce- MDRD equation with creatinine calibration to IDMS(NKDEP)eGFR not recommended for drug dose adjustment Performed By: #### H EMOG, BMP3, TROPN, LIPD2, TSH4, HA1C2 ####[address] [address] [place] [address] CO2 20 mmol/L Low 21-32 [facility] Comment on above: Performed By: #### H EMOG, BMP3, TROPN, LIPD2, TSH4, HA1C2 ####[address] [address] [place] [address] Glucose mass conc 201 mg/dL High 70-100 [facility] Comment on above: Performed By: #### H EMOG, BMP3, TROPN, LIPD2, TSH4, HA1C2 ####[address] [address] [place] [address] Urea nitrogen 14 mg/dL Normal 7-25 [facility] Comment on above: Performed By: #### H EMOG, BMP3, TROPN, LIPD2, TSH4, HA1C2 ####[address] [address] [place] [address] Calcium 9.2 mg/dL Normal 8.2-10.1 [facility] Comment on above: Performed By: #### H EMOG, BMP3, TROPN, LIPD2, TSH4, HA1C2 ####[address] [place] [address] Chloride 104 mmol/L Normal 98-109 [facility] Comment on above: Performed By: #### H EMOG, BMP3, TROPN, LIPD2, TSH4, HA1C2 ####[address] [place] [address] Potassium molar conc 3.6 mmol/L Normal 3.5-5.1 [facility] Comment on above: Performed By: #### H EMOG, BMP3, TROPN, LIPD2, TSH4, HA1C2 ####[address] [place] [address] Sodium 136 mmol/L Normal 135-145 [facility] Comment on above: Performed By: #### H EMOG, BMP3, TROPN, LIPD2, TSH4, HA1C2 ####[address] [place] [address] Hemoglobin A1Con 02-14-2017 Glucose mass conc 143 mg/dL Normal [facility] Comment on above: Performed By: #### H EMOG, BMP3, TROPN, LIPD2, TSH4, HA1C2 ####[place] [address] Hemoglobin A1c/Hemoglobin.total mass fraction (Bld) 6.6 % High 4.0-5.6 [facility] Comment on above: Result Comment: --Hg bA1C levels may not be accurate in patients who haverenal disease, received recent blood transfusions, are anemic,or who have dyshemoglobinemia. Performed By: #### H EMOG, BMP3, TROPN, LIPD2, TSH4, HA1C2 ####[place] [address] Hemogramon 02-14-2017 Erythrocyte distribution width Auto Ratio (RBC) 14.6 % High 11.5-14.5 [facility] Comment on above: Performed By: #### H EMOG, BMP3, TROPN, LIPD2, TSH4, HA1C2 ####[place] [address] Erythrocytes (RBC) 3.71 10*6/uL Low 3.80-5.20 [facility] Comment on above: Performed By: #### H EMOG, BMP3, TROPN, LIPD2, TSH4, HA1C2 ####[place] [address] Hematocrit (HCT) 33.2 % Low 35.0-47.0 [facility] Comment on above: Performed By: #### H EMOG, BMP3, TROPN, LIPD2, TSH4, HA1C2 ####[place] [address] Hemoglobin mass conc (Bld) 11.4 g/dL Low 11.7-16.0 [facility] Comment on above: Performed By: #### H EMOG, BMP3, TROPN, LIPD2, TSH4, HA1C2 ####[place] [address] MCH 30.9 pg Normal 26.0-34.0 [facility] Comment on above: Performed By: #### H EMOG, BMP3, TROPN, LIPD2, TSH4, HA1C2 ####[address] [place] [address] MCHC mass conc (RBC) 34.4 % Normal 32.0-36.0 [facility] Comment on above: Performed By: #### H EMOG, BMP3, TROPN, LIPD2, TSH4, HA1C2 ####[address] [place] [address] MCV 89.7 fL Normal 79.0-98.0 [facility] Comment on above: Performed By: #### H EMOG, BMP3, TROPN, LIPD2, TSH4, HA1C2 ####[address] [address] Platelet mean volume (PMV) 8.2 fL Normal 7.4-10.4 [facility] Comment on above: Performed By: #### H EMOG, BMP3, TROPN, LIPD2, TSH4, HA1C2 ####[address] [address] Platelets 238 10*3/uL Normal 140-440 [facility] Comment on above: Performed By: #### H EMOG, BMP3, TROPN, LIPD2, TSH4, HA1C2 ####[address] [address] WBC (Leukocytes) 9.1 10*3/uL Normal 3.6-10.7 [facility] Comment on above: Performed By: #### H EMOG, BMP3, TROPN, LIPD2, TSH4, HA1C2 ####[address] [address] Lipid Panelon 02-14-2017 Cholesterol to HDL Ratio 3 {ratio} Normal [facility] Comment on above: Result Comment: Ref Range:< 3 Low Risk for CHD3-6 Mod Risk for CHD> 6 High Risk for CHD Performed By: #### H EMOG, BMP3, TROPN, LIPD2, TSH4, HA1C2 ####[address] [address] HDL Cholesterol 42 mg/dL Normal 40-59 [facility] Comment on above: Performed By: #### H EMOG, BMP3, TROPN, LIPD2, TSH4, HA1C2 ####[address] [address] Low Density Lipoprotein 48 mg/dL Normal <100 [facility] Comment on above: Performed By: #### H EMOG, BMP3, TROPN, LIPD2, TSH4, HA1C2 ####[place] [address] Cholesterol 125 mg/dL Normal < 200 [facility] Comment on above: Performed By: #### H EMOG, BMP3, TROPN, LIPD2, TSH4, HA1C2 ####[place] [address] Triglyceride 176 mg/dL Abnormal <150 [facility] Comment on above: Performed By: #### H EMOG, BMP3, TROPN, LIPD2, TSH4, HA1C2 ####[place] [address] Thyroid Stim. Hormoneon 01-22 Thyroid Stim. Hormone 1.430 uU/mL Normal 0.358-3.740 [facility] Comment on above: Performed By: #### H EMOG, BMP3, TROPN, LIPD2, TSH4, HA1C2 ####[place] [address] Troponin Ion 02-14-2017 Troponin I.cardiac mass conc 0.544 ng/mL High 0.000-0.045 [facility] Comment on above: Result Comment: 0.04 6 - 0.400 = Indeterminate> 0.400 = Consider Myocardial Injury Performed By: #### T ROPN ####[place] [address] Troponin I.cardiac mass conc 0.709 ng/mL High 0.000-0.045 [facility] Comment on above: Result Comment: 0.04 6 - 0.400 = Indeterminate> 0.400 = Consider Myocardial Injury Performed By: #### T ROPN ####[address] [address] Troponin I.cardiac mass conc 0.844 ng/mL High 0.000-0.045 [facility] Comment on above: Result Comment: 0.04 6 - 0.400 = Indeterminate> 0.400 = Consider Myocardial Injury Performed By: #### H EMOG, BMP3, TROPN, LIPD2, TSH4, HA1C2 ####[address] [place] [address] Urinalysis,Macroon 7 Bilirubin (direct) Negative Normal Negative [facility] Comment on above: Performed By: #### U AMAC ####[address] [address] Ketone,Urine Negative Normal Negative [facility] Comment on above: Performed By: #### U AMAC ####[address] [address] Occult Blood,Ur Negative Normal Negative [facility] Comment on above: Performed By: #### U AMAC ####[address] [address] Specific [place],Urine 1.010 Normal 1.005-1.030 [facility] Comment on above: Performed By: #### U AMAC ####[address] [address] Total Protein,Urine Negative Normal Negative [facility] Comment on above: Performed By: #### U AMAC ####[address] [place] [address] Urine, appearance clear Normal Clear [facility] Comment on above: Performed By: #### U AMAC ####[address] [address] Urine, color p. yel Normal Lt. Yellow [facility] Comment on above: Performed By: #### U AMAC ####[address] [address] Urine, glucose presence 1000 mg/dL Normal Negative [facility] Comment on above: Performed By: #### U AMAC ####[address] [place] [address] Urine, nitrite presence Negative Normal Negative [facility] Comment on above: Performed By: #### U AMAC ####[address] [place] [address] Urine, pH 5.0 [pH] Normal 5.0-8.0 [facility] Comment on above: Performed By: #### U AMAC ####[address] [place] [address] Urine, urobilinogen 1 mg/dL Normal 0-1 [facility] Comment on above: Performed By: #### U AMAC ####[address] [place] [address] WBC (Leukocytes) Negative Normal Negative [facility] Comment on above: Performed By: #### U AMAC ####[address] [address] [place] [address] Culture, urine Bacteria identified Cx Nom (U) Presumptive E. coli [facility] Work Phone: Vital Signs Date Time Vital Sign Value Performing Clinician Faci lity 03-09-2025 08:10-0400 Diastolic blood pressure 46 mm[Hg] Dr. Candelario Santana MD Work Phone: [facility] 03-09-2025 08:10-0400 Heart rate 63 /min Dr. Candelario Santana MD Work Phone: [facility] 03-09-2025 08:10-0400 Systolic blood pressure 146 mm[Hg] Dr. Candelario Santana MD Work Phone: [facility] 03-09-2025 06:00-0400 Body temperature 97.9 [degF] Dr. Candelario Santana MD Work Phone: [facility] 03-09-2025 06:00-0400 Respiratory rate 16 /min Dr. Candelario Santana MD Work Phone: [facility] 03-09-2025 06:00-0400 SaO2% (BldA) [Mass fraction] 99 % Dr. Candelario Santana MD Work Phone: [phone] [place] [address] 03-07-2025 06:00-0400 Body mass index (BMI) [Ratio] 23.5 kg/m2 Dr. Candelario Santana MD Work Phone: [phone] [place] [address] 03-07-2025 06:00-0400 Body weight 58.[address] Candelario Santana MD Work Phone: 7(479)229-157472 [place] [address] 03-04-2025 13:25-0400 Body height 157.[address] Candelario Santana MD Work Phone: 7(721)824-893672 [place] [address] 02-21-2025 12:07-0400 Body temperature 97.8 [degF] Dr. Candelario Santana MD Work Phone: 9(576)486-800272 [place] [address] 02-21-2025 12:07-0400 Diastolic blood pressure 56 mm[Hg] Dr. Candelario Santana MD Work Phone: 5(939)429-451072 [place] [address] 02-21-2025 12:07-0400 Heart rate 81 /min Dr. Candelario Santana MD Work Phone: 3(411)424-019572 [place] [address] 02-21-2025 12:07-0400 Respiratory rate 16 /min Dr. Candelario Santana MD Work Phone: 5(013)526-766072 [place] [address] 02-21-2025 12:07-0400 SaO2% (BldA) [Mass fraction] 100 % Dr. Candelario Santana MD Work Phone: 1(221)927-462072 [place] [address] 02-21-2025 12:07-0400 Systolic blood pressure 122 mm[Hg] Dr. Candelario Santana MD Work Phone: 9(523)307-367272 [place] [address] 02-19-2025 12:27-0400 Body height 154.[address] Candelario Santana MD Work Phone: 4(904)761-657272 [place] [address] 02-19-2025 12:27-0400 Body weight 57.[address] Candelario Santana MD Work Phone: 4(884)753-369672 [place] [address] 02-16-2025 08:45-0400 Inhaled oxygen flow rate 2 L/min Dr. Candelario Santana MD Work Phone: 7(786)528-795215 [place] [address] 02-15-2025 16:04-0400 Body mass index (BMI) [Ratio] 23.8 kg/m2 Dr. Candelario Santana MD Work Phone: 0(870)194-764372 [place] [address] 02-15-2025 15:32-0400 Body temperature 98.6 [degF] Dr. Candelario Santana MD Work Phone: 0(116)598-639072 [place] [address] 02-15-2025 15:32-0400 Diastolic blood pressure 66 mm[Hg] Dr. Candelario Santana MD Work Phone: 2(328)612-013072 [place] [address] 02-15-2025 15:32-0400 Heart rate 78 /min Dr. Candelario Santana MD Work Phone: 0(674)376-798772 [place] [address] 02-15-2025 15:32-0400 Respiratory rate 15 /min Dr. Candelario Santana MD Work Phone: 0(028)230-463072 [place] [address] 02-15-2025 15:32-0400 SaO2% (BldA) [Mass fraction] 100 % Dr. Candelario Santana MD Work Phone: 1(018)467-118672 [place] [address] 02-15-2025 15:32-0400 Systolic blood pressure 113 mm[Hg] Dr. Candelario Santana MD Work Phone: 5(593)911-378472 [place] [address] 02-15-2025 13:11-0400 Body height 154.[address] Candelario Santana MD Work Phone: 0(976)809-026572 [place] [address] 02-15-2025 13:11-0400 Body mass index (BMI) [Ratio] 26.9 kg/m2 Dr. Candelario Santana MD Work Phone: 8(201)045-818872 [place] [address] 02-15-2025 13:11-0400 Body weight 64.[address] Candelario Santana MD Work Phone: 7(102)940-532572 [place] [address] 11-24-2022 14:15-0400 Body temperature 97.4 [degF] Dr. Candelario Santana Work Phone: 0(354)122-031872 [place] [address] 11-24-2022 14:15-0400 Diastolic blood pressure 61 mm[Hg] Dr. Candelario Santana Work Phone: [facility] 11-24-2022 14:15-0400 Heart rate 69 /min Dr. Candelario Santana Work Phone: [facility] 11-24-2022 14:15-0400 Respiratory rate 16 /min Dr. Candelario Santana Work Phone: [facility] 11-24-2022 14:15-0400 SaO2% (BldA) [Mass fraction] 100 % Dr. Candelario Santana Work Phone: [facility] 11-24-2022 14:15-0400 Systolic blood pressure 106 mm[Hg] Dr. Candelario Santana Work Phone: 3(697)062-639915 [place] [address] 11-24-2022 11:22-0400 Body height 154.[address] Candelario Santana Work Phone: 7(958)027-194215 [place] [address] 11-24-2022 11:22-0400 Body mass index (BMI) [Ratio] 26 kg/m2 Dr. Candelario Santana Work Phone: 6(295)653-757115 [place] [address] 11-24-2022 11:22-0400 Body weight 62.[address] Candelario Santana Work Phone: 1(491)770-576515 [place] [address] 06-18-2022 15:27-0400 Body height 154.[address] Candelario Santana Work Phone: 0(922)302-832215 [place] [address] 06-18-2022 15:27-0400 Body mass index (BMI) [Ratio] 26.3 kg/m2 Dr. Candelario Santana Work Phone: [facility] 06-18-2022 15:27-0400 Body weight 63.[address] Candelario Santana Work Phone: [facility] 03-21-2022 09:34-0400 Body temperature 97.8 [degF] Dr. Candelario Santana Work Phone: [facility] Work Phone: 03-21-2022 09:34-0400 Diastolic blood pressure 66 mm[Hg] Dr. Candelario Santana Work Phone: [facility] Work Phone: 03-21-2022 09:34-0400 Heart rate 73 /min Dr. Candelario Santana Work Phone: [facility] Work Phone: 03-21-2022 09:34-0400 Respiratory rate 18 /min Dr. Candelario Santana Work Phone: [facility] Work Phone: 03-21-2022 09:34-0400 SaO2% (BldA) [Mass fraction] 97 % Dr. Candelario Santana Work Phone: [facility] Work Phone: 03-21-2022 09:34-0400 Systolic blood pressure 127 mm[Hg] Dr. Candelario Santana Work Phone: [facility] Work Phone: 03-21-2022 06:00-0400 Body weight 69.[address] Candelario Santana Work Phone: [facility] Work Phone: 03-20-2022 10:23-0400 Body height 154.[address] Candelario Santana Work Phone: [facility] Work Phone: 03-20-2022 10:23-0400 Body mass index (BMI) [Ratio] 25.8 kg/m2 Dr. Candelario Santana Work Phone: [facility] Work Phone: 03-20-2022 04:57-0400 Body temperature 98 [degF] Dr. Candelario Santana Work Phone: [facility] Work Phone: 03-20-2022 04:57-0400 Diastolic blood pressure 75 mm[Hg] Dr. Candelario Santana Work Phone: [facility] Work Phone: 03-20-2022 04:57-0400 Heart rate 77 /min Dr. Candelario Santana Work Phone: [facility] Work Phone: 03-20-2022 04:57-0400 Respiratory rate 16 /min Dr. Candelario Santana Work Phone: [facility] Work Phone: 03-20-2022 04:57-0400 SaO2% (BldA) [Mass fraction] 97 % Dr. Candelario Santana Work Phone: [facility] Work Phone: 03-20-2022 04:57-0400 Systolic blood pressure 98 mm[Hg] Dr. Candelario Santana Work Phone: [facility] Work Phone: 03-20-2022 02:07-0400 Body height 154.[address] Candelario Santana Work Phone: [facility] Work Phone: 03-20-2022 02:07-0400 Body mass index (BMI) [Ratio] 28 kg/m2 Dr. Candelario Santana Work Phone: [facility] Work Phone: 03-20-2022 02:07-0400 Body weight 67.[address] Candelario Santana Work Phone: [facility] Work Phone: Encounters Encounter Date Encounter Type Care Provider Facility Start: 03-13-2025 ambulatory Pineda Arteaga ity:[facility] Start: 03-08-2025 Non-patient / Non-visit Dr. Katie Bah [facility] Work Phone: Start: 03-06-2025 Non-patient / Non-visit Dr. Katie Bah [facility] Work Phone: Start: 03-05-2025 [facility] Start: 03-05-2025 Non-patient / Non-visit Dr. Katie Bah [facility] Work Phone: Start: 03-01-2025 ambulatory Baldev Kaba Facility:[facility] Start: 03-01-2025 Non-patient / Non-visit Dr. Baldev Kaba MD -[facility] Start: 03-01-2025 Non-patient / Non-visit Dr. Katie Bah DO [facility] Work Phone: Start: 02-28-2025 Non-patient / Non-visit Dr. Katie Bah [facility] Work Phone: Start: 02-27-2025 ambulatory Steve Werner Facility:[facility] Start: 02-27-2025 Non-patient / Non-[facility] Start: 02-26-2025 Non-patient / Non-visit Dr. Katie Bah [facility] Work Phone: Start: 02-23-2025 Non-patient / Non-visit Dr. Katie Bah [facility] Work Phone: Start: 02-22-2025 Non-patient / Non-visit Dr. Katie Bah [facility] Work Phone: Start: 02-21-2025 ambulatory Katie Bah Facility:[facility] Start: 02-21-2025 End: 03-09-2025 Evaluation and management of inpatient [facility] Work [facility]: Start: 02-21-2025 Non-patient / Non-visit Dr. G[facility] Work Phone: Start: 02-20-2025 Non-patient / Non-visit Dr. Gia [facility] Work Phone: Start: 02-19-2025 Non-patient / Non-visit Dr. Gia [facility] Work Phone: Start: 02-19-2025 Non-patient / Non-visit Dr. Matt Chacon MD -[facility] Start: 02-18-2025 Non-patient / Non-visit Dr. Gia Owusu DO [facility] Work Phone: Start: 02-17-2025 Non-patient / Non-visit Dr. Matt Chacon MD [facility] Start: 02-17-2025 Non-patient / Non-visit Dr. Gia Owusu DO [facility] Work Phone: Start: 02-16-2025 Non-patient / Non-visit Dr. Matt Chacon MD [facility] Start: 02-16-2025 Non-patient / Non-visit Dr. Baldev Berry [facility] Work Phone: Start: 02-16-2025 End: 02-16-2025 ambulatory Lakeshia Mas [facility] Start: 02-16-2025 End: 02-16-2025 Non-patient / Non-visit Dr. Sergo Chaney MD -[facility] Work Phone: Start: 02-15-2025 ambulatory [facility] Start: 02-15-2025 End: 02-21-2025 Evaluation and management of inpatient Dr. Lakeshia Mas MD -[facility] Work Phone: Start: 12-27-2024 End: 12-27-[address] Candelario Santana MD Work Phone: [facility] Work Phone: Start: 12-27-2024 End: 12-27-[address] Candelario Santana MD -Laboratory Work Phone: Start: 12-27-2024 End: 12-27-2024 ambulatory Candelario Santana Facility:[facility] Start: 09-25-2024 End: 09-25-[address] Candelario Santana MD -Laboratory Work Phone: Start: 09-25-2024 End: 09-25-2024 ambulatory Candelario Santana Facility:[facility] Start: 07-19-2024 ambulatory Candelario Chi Max Facility:[facility] Start: 06-21-2024 End: 06-21-2024 ambulatory [facility] Max Facility:[facility] Start: 04-12-2024 ambulatory [facility] Max Facility:[facility] Start: 03-31-2024 ambulatory [facility] Max Facility:[facility] Start: 03-21-2024 End: 03-21-2024 ambulatory [facility] Max Facility:[facility] Start: 12-20-2023 End: 12-20-2023 ambulatory [facility] spital Work Phone: Start: 12-20-2023 End: 12-20-2023 [facility] Start: 09-21-2023 End: 09-21-2023 ambulatory [facility] Work Phone: Start: 09-21-2023 End: 09-21-2023 [facility] Start: 06-15-2023 End: 06-15-2023 [facility] Start: 03-17-2023 End: 03-17-[address] Candelario Santana Work Phone: [facility] Work Phone: Start: 03-17-2023 End: 03-17-[address] Candelario Santana [facility] Start: 12-21-2022 End: 12-21-[address] Candelario Santana Work Phone: [facility] Work Phone: Start: 12-21-2022 End: 12-21-[address] Cadnelario Santana [facility] Start: 12-16-2022 End: 12-16-[address] Candelario Santana Work Phone: [facility] Work Phone: Start: 12-16-2022 End: 12-16-[address] Candelario Santana Work Phone: [facility] Phy Office 3rd Flr Start: 12-09-2022 End: 12-09-[address] Candelario Santana Work Phone: [facility] Start: 11-24-2022 Non-patient / Non-visit Dr. Candelario Santana Work Phone: [facility] Start: 11-24-2022 End: 11-24-2022 Non-patient / Non-visit Dr. Candelario Santana Work Phone: [facility] Start: 11-24-2022 End: 11-24-2022 Admission to same day surgery center Dr. Candelario Santana Work Phone: [facility] Start: 11-24-2022 End: 11-24-[address] Candelario Santana Work Phone: [facility] Work Phone: Start: 09-16-2022 End: 09-16-[address] Candelario Santana Work Phone: [facility] Work Phone: Start: 09-16-2022 End: 09-16-[address] Candelario Santana Work Phone: [facility] y Office 3rd Flr Start: 09-10-2022 End: 09-10-[address] Candelario Santana Work Phone: [facility] Start: 07-08-2022 End: 07-08-[address] Candelario Santana Work Phone: [facility] Work Phone: Start: 07-08-2022 End: 07-08-[address] Candel[facility] Santana [facility] Start: 06-18-2022 End: 06-18-[address] Candelario Santana Work Phone: [facility] Start: 05-25-2022 End: 05-25-[address] Candelario Santana Work Phone: [facility] Work Phone: Start: 05-25-2022 End: 05-25-[address] Candelario Santana Work Phone: [facility] Office 3rd Flr Start: 04-09-2022 End: 04-09-[address] Candelario Santaan Work Phone: [facility] Work Phone: Start: 04-09-2022 End: 04-09-[address] Candelario Santana Work Phone: [facility] Office 3rd Flr Start: 03-21-2022 Non-patient / Non-visit Dr. Candelario Santana Work Phone: [facility] Start: 03-20-2022 Non-patient / Non-visit Dr. Candelario Santana Work Phone: [facility] Start: 03-20-2022 End: 03-21-2022 Evaluation and management of inpatient Dr. Candelario Santana [facility] Start: 03-20-2022 Non-patient / Non-visit Dr. Candelario Santana Work Phone: [facility] Start: 12-22-2021 End: 12-22-[address] [facility] Office 3rd Flr Start: 12-15-2021 End: 12-15-[address] [facility] Office 3rd Flr Start: 09-24-2021 End: 09-24-2021 [facility] Start: 09-15-2021 End: 09-15-2021 [facility] Start: 03-05-2017 [facility] Start: 02-18-2017 End: 02-19-2017 Ambulatory Barb WO ID REFERRING Facility:[facility] Start: 02-13-2017 Emergency department patient visit Abhay Jarvis [facility] Procedures Date Procedure Procedure Detail Performing Clinician Start: 03-05-[address] Candelario watson MD Work Phone: Start: 03-02-2025 Plain radiography of pelvis Dr. Candelario Santana MD Work Phone: Start: 03-02-2025 Plain X-ray of femur Dr. Candelario Santana MD Work Phone: Start: 02-23-[address] Candelario Santana MD Work Phone: Start: 02-23-2025 Urnls dip stick/tablet reagent auto microscopy Dr. Candelario Santana MD Work Phone: Start: 02-22-2025 Osmolality measurement, serum Dr. Candelario coles MD Work Phone: Start: 02-22-2025 Total iron binding capacity measurement Dr. Candelario Santana MD Work Phone: Start: 02-22-2025 Measurement of occult blood in stool specimen using immunoassay Dr. Candelario Santana MD Work Phone: Start: 02-22-2025 Serum inorganic phosphate measurement Dr. Candelario Santana MD Work Phone: Start: 02-19-[address] Candelario watson MD Work Phone: Start: 02-16-2025 Open reduction of fracture of femur with internal fixation Dr. Candelario Santana MD Work Phone: Start: 02-16-[address] Candelario Santana MD Work Phone: Start: 02-16-2025 Plain X-ray of hip Dr. Candelario Santana MD Work Phone: Start: 02-16-[address] Candelario Santana MD Work Phone: Comment on above: Performed at: [address] [id number] Director: Danielito العلي PhD, Phone: [phone] Start: 02-16-2025 Vitamin D, 25-hydroxy measurement Dr. Ben Santana MD Work Phone: Comment on above: Vitamin D StatusDeficiency: <20 ng/mL (5 0nmol/L)Insufficiency: 20-30 ng/mL (50-75 nmol/L)Sufficiency: 30-100 ng/mL (75-250 nmol/L)Toxicity: >100 ng/mL (>250 nmol/L) Start: 02-15-[address] Candelario watson MD Work Phone: Start: 02-15-2025 Urnls dip stick/tablet reagent auto microscopy Dr. Candelario Santana MD Work Phone: Start: 02-15-2025 Plain X-ray of femur Dr. Candelario Santana MD Work Phone: Start: 02-15-2025 Plain x-ray of pelvis and lower extremity Dr. Candelario Santana MD Work Phone: Start: 02-15-[address] Candelario watson MD Work Phone: Start: 02-15-2025 Total iron binding capacity measurement Dr. Candelario Santana MD Work Phone: Start: 09-25-2024 Measurement of renal function Dr. Candelario coles MD Work Phone: Comment on above: GFR Calc Start: 09-25-2024 Vitamin D, 25-hydroxy measurement Dr. Ben Santana MD Work Phone: Comment on above: Vitamin D 25(OH) Status Range Deficiency <20 ng/mL (50nmol/L) Insufficiency 20 - 30 ng/mL (50 - 75 nmol/L) Sufficiency 30 - 100 ng/mL (75 - 250 nmol/L) Toxicity >100 ng/mL (>250 nmol/L) Start: 11-24-[address] Candelario Santana Work Phone: Start: 11-24-2022 End: 11-24-[address] Candelario Santana Work Phone: Start: 03-20-2022 End: 03-20-[address] Candelario Santana Work Phone: Start: 03-20-[address] Candelario Santana Work Phone: Start: 03-20-2022 Computed tomography of abdomen and pelvis with intravenous contrast Dr. Candelario Santana Work Phone: History of thyroidectomy H/O thyroidectom y Dr. 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 History of thyroidectomy H/O thyroidectom y Dr. Katie Bah DO Urine culture Dr. Candelario Santana Work Phone: Plan of Treatment Date Care Activity Detail Author Start: 03-09-2025 Patient discharge [facility] Start: 03-02-2025 [facility] Start: 02-23-2025 Introduction of urinary catheter [facility] Start: 02-22-2025 Speech therapy assessment [facility] Start: 02-21-2025 End: 02-22-2025 Patient referral to dietitian [facility] Start: 02-21-2025 Following clinical pathway protocol [facility] Start: 02-21-2025 Recommendation to continue with treatment [facility] Start: 02-21-2025 Implementation of planned interventions [facility] Start: 02-21-2025 Referral to service [facility] Start: 02-21-2025 Urinary bladder training [facility] Start: 02-21-2025 Admission procedure [facility] Start: 02-21-2025 Measuring intake and output [facility] Start: 02-21-2025 Referral to occupational therapist [facility] Start: 02-21-2025 Vital signs measurements [facility] Start: 02-21-2025 End: 02-21-2025 [facility] Start: 02-21-2025 Patient discharge [facility] Start: 02-21-2025 Application of device [facility] Start: 02-17-2025 End: 02-17-2025 [facility] Start: 02-17-2025 Ambulation therapy management [facility] Start: 02-17-2025 Application of device [facility] Start: 02-17-2025 Exercises [facility] Start: 02-17-2025 Following clinical pathway protocol [facility] Start: 02-17-2025 Introduction of urinary catheter [facility] Start: 02-17-2025 Neurovascular assessment [facility] Start: 02-17-2025 Patient education [facility] Start: 02-17-2025 Provision of activity privileges [facility] Start: 02-17-2025 Referral to occupational therapist [facility] Start: 02-17-2025 Referral to service [facility] Start: 02-17-2025 Vital signs measurements [facility] Start: 02-17-2025 Wound care [facility] Start: 02-17-2025 Ambulation therapy management [facility] Start: 02-16-2025 Administration of blood product [facility] Start: 02-16-2025 [facility] Start: 02-16-2025 Open reduction of fracture of femur with internal fixation ORIF, Hip, Gamma Nail (Left) [facility] Start: 02-15-2025 Application of intermittent pneumatic compression device [facility] Start: 02-15-2025 Following clinical pathway protocol [facility] Start: 02-15-2025 Assessment of risk of venous thromboembolism [facility] Start: 02-15-2025 Care regimes management [facility] Start: 02-15-2025 Consultation [facility] Start: 02-15-2025 Inhalation therapy procedure [facility] Start: 02-15-2025 Insertion of catheter into peripheral vein [facility] Start: 02-15-2025 Notification of physician [facility] Start: 02-15-2025 Providing care according to standard [facility] Start: 02-15-2025 Referral to occupational therapist [facility] Start: 02-15-2025 Referral to service [facility] Start: 02-15-2025 End: 02-15-2025 [facility] Start: 02-15-2025 Verification routine [facility] Start: 02-15-2025 Admission procedure [facility] Start: 02-15-2025 Hospital admission, emergency, from emergency room, medical nature [facility] Start: 02-15-2025 [facility] Start: 02-15-2025 Patient referral to dietitian [facility] Start: 11-24-2022 Anesthesia upper gi endoscopic px ercp ANES UPR GI NDSC PX ERCP [facility] Start: 11-24-2022 Ercp remove calculi/debris biliary/pancreas duct ERCP REMOVE DUCT CALCULI [facility] Start: 11-24-2022 Ercp remove foreign body/stent biliary/panc duct ERCP REMOVE FORGN BODY DUCT [facility] Start: 11-24-2022 Ercp w/sphincterotomy/papillotomy ENDO CHOLANGIOPANCREATOGRAPH [facility] Start: 11-24-2022 Endoscopic retrograde cholangiopancreatography ERCP Biliary/Pancreas [facility] Start: 11-24-2022 RF Guidance for endoscopy of Biliary ducts and Pancreatic duct-- W contrast retrograde [facility] [place] Start: 11-24-2022 Patient discharge [facility] Start: 03-21-2022 Patient discharge [facility] Work Phone: Start: 03-20-2022 Application of intermittent pneumatic compression device [facility] Work Phone: Start: 03-20-2022 Catheterization of vein [facility] Work Phone: Start: 03-20-2022 Following clinical pathway protocol [facility] Work Phone: Start: 03-20-2022 Assessment of risk of venous thromboembolism [facility] Work Phone: Start: 03-20-2022 Care regimes management [facility] Work Phone: Start: 03-20-2022 Fall prevention [facility] Work Phone: Start: 03-20-2022 Incentive spirometry [facility] Work Phone: Start: 03-20-2022 Inhalation therapy procedure [facility] Work Phone: Start: 03-20-2022 Insertion of catheter into peripheral vein [facility] Work Phone: Start: 03-20-2022 Introduction of urinary catheter [facility] Work Phone: Start: 03-20-2022 Measuring intake and output [facility] Work Phone: Start: 03-20-2022 Oxygen therapy [facility] Work Phone: Start: 03-20-2022 Providing care according to standard [facility] Work Phone: Start: 03-20-2022 Provision of activity privileges [facility] Work Phone: Start: 03-20-2022 Referral to gastroenterology service [facility] Work Phone: Start: 03-20-2022 Referral to service [facility] Work Phone: Start: 03-20-2022 [facility] Work Phone: Start: 03-20-2022 Verification routine [facility] Work Phone: Start: 03-20-2022 Admission procedure [facility] Work Phone: Start: 03-20-2022 [facility] Work Phone: Start: 03-20-2022 Patient referral to dietitian [facility] Work Phone: Bacteria identified in Urine by Culture Urine Culture [facility] Work Phone: Cardiac event recording [facility] Patient referral [facility] Work Phone: [facility] Work Phone: Immunizations Immunization Date Immunization Notes Care Provider Fa [facility] 09-15-2021 influenza, injectabl e, quadrivalent, preservative free Dr. Candelario Santana MD Work Phone: [facility] 05-27-2020 influenza, injectabl e, quadrivalent, preservative free Dr. Candelario Santana MD Work Phone: [facility] 05-05-2017 influenza, injectabl e, quadrivalent, preservative free Dr. Candelario Santana MD Work Phone: [facility] 04-29-2016 influenza, injectabl e, quadrivalent, preservative free Dr. Candelario Santana MD Work Phone: [facility] 06-23-2012 influenza, seasonal, injectable, preservative free Dr. Candelario Santana MD Work Phone: [facility] Payers Date Payer Category Payer Medicare [id number] 2024 Self-pay [id number] Private Health Insurance Unknown [id number] 2.16.8 40.1.045690.3.579.2.462 Unknown [id number] 2.16.8 40.1.248033.3.579.2.462 Unknown [id number] 2.16.8 40.1.494091.3.579.2.462 Unknown [id number] 2.16.8 40.1.997503.3.579.2.462 Unknown [id number] 2.16.8 40.1.235204.3.579.2.462 Unknown [id number] 2.16.8 40.1.307288.3.579.2.462 Unknown [id number] 2.16.8 40.1.949167.3.579.2.462 Unknown [id number] 2.16.8 40.1.903150.3.579.2.462 Unknown [id number] 2.16.8 40.1.179796.3.579.2.462 Unknown [id number] 2.16.8 40.1.894974.3.579.2.462 Unknown [id number] 2.16.8 40.1.340943.3.579.2.462 Unknown [id number] 2.16.8 40.1.613043.3.579.2.462 Unknown [id number] 2.16.8 40.1.918804.3.579.2.462 Unknown [id number] 2.16.8 40.1.278959.3.579.2.462 Unknown [id number] 2.16.8 40.1.202740.3.579.2.462 Unknown [id number] 2.16.8 40.1.540304.3.579.2.462 Unknown [id number] 2.16.8 40.1.062453.3.579.2.462 Unknown [id number] 2.16.8 40.1.970515.3.579.2.462 Unknown [id number] 2.16.8 40.1.640236.3.579.2.462 Unknown [id number] 2.16.8 40.1.884955.3.579.2.462 Unknown [id number] 2.16.8 40.1.366137.3.579.2.462 Unknown [id number] 2.16.8 40.1.899732.3.579.2.462 Unknown [id number] 2.16.8 40.1.029094.3.579.2.462 Unknown [id number] 2.16.8 40.1.647044.3.579.2.462 Unknown [id number] 2.16.8 40.1.651558.3.579.2.462 Unknown [id number] 2.16.8 40.1.304327.3.579.2.462 Unknown [id number] 2.16.8 40.1.519254.3.579.2.462 Unknown [id number] 2.16.8 40.1.601137.3.579.2.462 Unknown [id number] 2.16.8 40.1.143423.3.579.2.462 Unknown [id number] 2.16.8 40.1.670585.3.579.2.462 Unknown [id number] 2.16.8 40.1.849333.3.579.2.462 Unknown [id number] 2.16.8 40.1.147308.3.579.2.462 Unknown [id number] 2.16.8 40.1.096654.3.579.2.462 Social History Date Type Detail Facility Start: 10-22-2020 End: 12-09-2022 Tobacco smoking status NVIS Unknown if ever smoked [facility] Start: 02-13-2017 None [facility] Start: 10-22-2020 Non-smoker [facility] Start: 1945 Sex Assigned At Female [facility] Start: 12-09-2022 End: 02-23-2025 Tobacco smoking status NHIS Never smoked tobacco (finding) [facility] NEGATED: Highlighted row [facility] Medical Equipment Procedure Code Equipment Code Equipment Origin al Text Equipment Identifier Dates ORIF, hip, using Gamma nail ([id number]) Orthopaedic bone screw, non-bioabsorbable, sterile ()[id number] [id number] FDA Start: 02-16-2025 ORIF, hip, using Gamma nail ([id number]) Orthopaedic bone screw, non-bioabsorbable, sterile ()[id number] 1D4 FDA Start: 02-16-2025 ORIF, hip, using Gamma nail Femur intramedullary nail ()[id number] F32 FDA Start: 02-16-2025 ORIF, hip, using Gamma nail Orthopaedic bone screw (non-sliding) ()[id number] 1C8 FDA Start: 02-16-2025 ERCP (endoscopic retrograde cholangiopancreato graphy) STENT, RX 7FR x 12CM FDA Start: 03-20-2022 ERCP (endoscopic retrograde cholangiopancreato graphy) STENT,RX PLASTIC BILIARY 10X9 FDA Start: 03-20-2022 ERCP (endoscopic retrograde cholangiopancreato graphy) STENT, RX 7FR x 12CM FDA Start: 03-20-2022 ERCP (endoscopic retrograde cholangiopancreato graphy) STENT,RX PLASTIC BILIARY 10X9 FDA Start: 03-20-2022 ERCP (endoscopic retrograde cholangiopancreato graphy) STENT, RX 7FR x 12CM FDA Start: 03-20-2022 ERCP (endoscopic retrograde cholangiopancreato graphy) STENT,RX PLASTIC BILIARY 10X9 FDA Start: 03-20-2022 ERCP (endoscopic retrograde cholangiopancreato graphy) STENT, RX 7FR x 12CM FDA Start: 03-20-2022 ERCP (endoscopic retrograde cholangiopancreato graphy) STENT,RX PLASTIC BILIARY 10X9 FDA Start: 03-20-2022 ERCP (endoscopic retrograde cholangiopancreato graphy) STENT, RX 7FR x 12CM FDA Start: 03-20-2022 ERCP (endoscopic retrograde cholangiopancreato graphy) STENT,RX PLASTIC BILIARY 10X9 FDA Start: 03-20-2022 ERCP (endoscopic retrograde cholangiopancreato graphy) STENT, RX 7FR x 12CM FDA Start: 03-20-2022 ERCP (endoscopic retrograde cholangiopancreato graphy) STENT,RX PLASTIC BILIARY 10X9 FDA Start: 03-20-2022 ERCP (endoscopic retrograde cholangiopancreato graphy) STENT, RX 7FR x 12CM FDA Start: 03-20-2022 ERCP (endoscopic retrograde cholangiopancreato graphy) STENT,RX PLASTIC BILIARY 10X9 FDA Start: 03-20-2022 ERCP (endoscopic retrograde cholangiopancreato graphy) STENT, RX 7FR x 12CM FDA Start: 03-20-2022 ERCP (endoscopic retrograde cholangiopancreato graphy) STENT,RX PLASTIC BILIARY 10X9 FDA Start: 03-20-2022 ERCP (endoscopic retrograde cholangiopancreato graphy) STENT, RX 7FR x 12CM FDA Start: 03-20-2022 ERCP (endoscopic retrograde cholangiopancreato graphy) STENT,RX PLASTIC BILIARY 10X9 FDA Start: 03-20-2022 ERCP (endoscopic retrograde cholangiopancreato graphy) STENT, RX 7FR x 12CM FDA Start: 03-20-2022 ERCP (endoscopic retrograde cholangiopancreato graphy) STENT,RX PLASTIC BILIARY 10X9 FDA Start: 03-20-2022 ERCP (endoscopic retrograde cholangiopancreato graphy) STENT, RX 7FR x 12CM FDA Start: 03-20-2022 ERCP (endoscopic retrograde cholangiopancreato graphy) STENT,RX PLASTIC BILIARY 10X9 FDA Start: 03-20-2022 ERCP (endoscopic retrograde cholangiopancreato graphy) STENT, RX 7FR x 12CM FDA Start: 03-20-2022 ERCP (endoscopic retrograde cholangiopancreato graphy) STENT,RX PLASTIC BILIARY 10X9 FDA Start: 03-20-2022 ERCP (endoscopic retrograde cholangiopancreato graphy) STENT, RX 7FR x 12CM FDA Start: 03-20-2022 ERCP (endoscopic retrograde cholangiopancreato graphy) STENT,RX PLASTIC BILIARY 10X9 FDA Start: 03-20-2022 ERCP (endoscopic retrograde cholangiopancreato graphy) STENT, RX 7FR x 12CM FDA Start: 03-20-2022 ERCP (endoscopic retrograde cholangiopancreato graphy) STENT,RX PLASTIC BILIARY 10X9 FDA Start: 03-20-2022 Goals Date Patient Goal Desired Activity /State Functional Status Date Assessment Result Facility 03-09-2025 Functional status Activity Abili ty With Assist of 2 [facility] Work Phone: 03-09-2025 Functional status Ambulates;Bathroom Priv ilege [facility] Work Phone: 02-21-2025 Functional status Ambulates;Bedr est;Bathroom Privilege [facility] Work Phone: 03-21-2022 Functional status Ambulates [facility] Work Phone: Mental Status Date Assessment Result Facility 03-09-2025 Cognitive function Voice/Name [facility] Work Phone: 02-21-2025 Cognitive function Voice/Name [facility] Work Phone: 11-24-2022 Cognitive function Voice/Name [facility] Work Phone: 11-24-2022 Cognitive function Patient Orien tation Person;Place;Time [facility] Work Phone: 03-21-2022 Cognitive function Appropriate;Cooperativ e [facility] Work Phone: 03-20-2022 Cognitive function Awake;Alert;A ppropriate;Follo ws Commands [facility] Work Phone: Clinical Notes 11-24-2022 to 03-09-2025 Note Date & Type Note Facility 03-09-2025 Discharge summary Note Date/Time March 09, 2025 11:03am [facility] Medical Records Department [address] [place] [address] Discharge Summary 03/08/25 1657 MR#: [id number] Acct: [id number] Name: SHASHI OSWALD Rep #:[id number] : 1945 79 From: Katie Bah DO PCP: Dr. Candelario Santana MD Status:ADM I N Location: [address] Date of Admission: 02/21/25 Date of Discharge: 03/09/25 Primary Care Physician: Dr. Candelario Santana MD Reason For Visit: LEFT HIP ORIF Diagnosis Discharge Diagnosis (1) Debility: Status: Acute Code(s): R53.81 - Other malaise (2) Intertrochanteric fracture of left femur: Status: Resolved Code(s): S72.142A - Displaced intertrochanteric fracture of left femur, initial encounterfor closed fracture Qualifiers: Encounter type: initial encounter Fracture alignment: displaced Fracture type: closed Qualified Code(s): S72.142A - Displaced intertrochanteric fracture of left femur, initial encounter for closed fracture (3) History of open reduction and internal fixation (ORIF) procedure: Status: Inactive Code(s): Z98.890 - Other specified postprocedural states Plan: Cephalomedullary nailing by Dr. Pennie Chacon on 02/16/2025. (4) Hyponatremia: Status: Acute Code(s): E87.1 - Hypo-osmolality and hyponatremia Plan: Lab is consistent with dehydration. Stable at 134 on 03/05/25. Poor oral fluid intake. Needs a lot of reminding to increase fluid intake. (5) Anemia: Status: Chronic Code(s): D64.9 - Anemia, unspecified Qualifiers: Anemia type: unspecified type Qualified Code(s): D64.9 - Anemia, unspecified Plan: Acute on chronic anemia due to blood loss from hip fx/ORIF. Hemoglobin on 03/05 is 9.5, up from 8.5 at admission to rehab. Iron studies were not consistent with iron deficiency at admission to rehab and in fact her percent iron saturation is 35%. She has chronic normochromic normocytic anemia but was not taking a thyroid supplement at home. Levothyroxine has been restarted while on rehab and the chronic anemia may resolve with appropriate thyroid hormone supplementation. Stool is heme positive but, HGB is increasing so this was not worked up on rehab. (6) Vitamin D deficiency: Status: Chronic Code(s): E55.9 - Vitamin D deficiency, unspecified Plan: Started on calcium and vitamin D supplementation. Will continue at discharge. Recommend a bone density test in the next 3 months. (7) Hypothyroidism: Status: Chronic Code(s): E03.9 - Hypothyroidism, unspecified Qualifiers: Hypothyroidism type: acquired Qualified Code(s): E03.9 - Hypothyroidism, unspecified Plan: Started on levothyroxine 25 mcg daily on rehab. She will continue this at discharge. Will need a follow-up TSH and T4 in 6 weeks. (8) Diabetes mellitus, type 2: Status: Chronic Code(s): E11.9 - Type 2 diabetes mellitus without complications Qualifiers: Diabetes mellitus complication status: with other specified complication Diabetes mellitus alf insulin use: without alf use Qualified Code(s): E11.69 - Type 2 diabetes mellitus with other specified complication Plan: Blood sugars have been under excellent control on Glucophage 750 mg once daily in the AM. Will continue at discharge. (9) Parkinson's disease: Status: Chronic Code(s): G20.A1 - Parkinson's disease without dyskinesia, without mention of fluctuations Qualifiers: Dyskinesia presence: without dyskinesia Fluctuating manifestations: unspecified whether manifestations fluctuate Qualified Code(s): G20.A1 - Parkinson's disease without dyskinesia, without mention of fluctuations Plan: Not sure if she had Parkinson's disease or Parkinsonism due to dementia/cerebralatrophy. Recommend she follow up with neurology at [place] from rehab. (10) Cognitive dysfunction: Status: Chronic Code(s): F09 - Unspecified mental disorder due to known physiological condition Plan: Dementia suspected. Will follow up with neurology. (11) Occult blood in stools: Status: Acute Code(s): R19.5 - Other fecal abnormalities (12) Right carotid bruit: Status: Chronic Code(s): R09.89 - Other specified symptoms and signs involving the circulatory and respiratory systems (13) Fecal incontinence: Status: Chronic Code(s): R15.9 - Full incontinence of feces Qualifiers: Fecal incontinence type: full incontinence of feces Qualified Code(s): R15.9 - Full incontinence of feces (14) Urinary bladder incontinence: Status: Chronic Code(s): R32 - Unspecified urinary incontinence Qualifiers: Urinary Incontinence type: functional incontinence Qualified Code(s): R39.81 - Functional urinary incontinence (15) Paroxysmal atrial fibrillation: Status: Acute Code(s): I48.0 - Paroxysmal atrial fibrillation Plan: She has no hx of this but, she was in AF when I examined her on 02/23/25. HR was in the 90's to low 100's and she was started on Metoprolol. She has been in a regular rhythm every time I have examined her this past week. Will recommend an event monitor at [place]. (16) Orthostatic hypotension: Status: Chronic Code(s): I95.1 - Orthostatic hypotension Plan: This is more likely than not related to dehydration. She has poor oral fluid intake. She is asymptomatic. There is a significant discrepancy in the BP in the R and left arms. The BP in the left arm is always lower than the R. She more likely than not has vascular disease in the L arm. Would use the BP's in the R arm to adjust antihypertensives. (17) Osteoporosis: Status: Suspected Code(s): M81.0 - Age-related osteoporosis without current pathological fracture Qualifiers: Osteoporosis type: age-related Presence of current pathological fracture: without current pathological fracture Qualified Code(s): M81.0 - Age-related osteoporosis without current pathological fracture Plan: Recommend a DEXA following DC from in rehab. Plan 1. DC to [facility] on 03/09 for additional therapy - may need LT placement 2. Event monitor at DC. 3. DEXA in the near future. 4. CBC and BMP in 1 week 5. TSH and free T4 in 6 weeks. 6. Continue Glucophage 750 mg once daily in the AM. Bs's are in excellent control with no hypoglycemia at the time of DC from rehab 7. Continue Metoprolol 8. She has edema of the LLE due to sitting in the recliner with legs dependent. Venous US prior to DC negative for DVT. Continue CAMILA hose and elevation of thelegs if you can get her to comply. 9. will need to continue Eliquis 2.5 mg BID for DVT prophylaxis.......end date is 03/22/25. 10. Follow-up with Dr. Matt Chacon, orthopedics, postdischarge from rehab. 11. She needs to be encouraged frequently to increase fluid intake. 12. The systolic BP in the left arm is generally 30-40 points lower than in ther arm. she likely has vascular disease in the left arm. Please ALWAYS use the R arm when taking BP and adjusting BP meds. Medications at Discharge Home Medications carbidopa 25 mg-levodopa 100 mg tablet 1 tab PO TID parkinson 02/15/25 losartan 50 mg tablet 50 mg PO DAILY blood pressure 02/15/25 Held on 02/21/25. Instructions: Until blood pressures are consistently greater than 130 systolic acetaminophen 500 mg tablet 1,000 mg (2 x 500 mg) PO Q8 pain #0 tabs 02/21/25 ergocalciferol (vitamin D2) 1,250 mcg (50,000 unit) capsule (Vitamin D2) 1,250 mcg PO Q7D supplement #0 caps 02/21/25 apixaban 5 mg tablet (Eliquis) 2.5 mg (1/2 x 5 mg) PO BID DVT prophylaxis #1 TAB 03/08/25 bisacodyl 10 mg rectal suppository 10 mg MN X1 PRN Constipation #1 ea 03/08/25 calcium carbonate 500 mg (2.5 x 200 mg calcium (500 mg)) PO TIDCM #1 TAB 03/08/25 diclofenac sodium 1 % topical gel (Voltaren Arthritis Pain) 2 g topical BID #100grams 03/08/25 levothyroxine 25 mcg tablet 25 mcg PO DAILY@0600 #1 TAB 03/08/25 magnesium hydroxide 400 mg/5 mL oral suspension 30 ml PO X1 PRN Constipation #30mL 03/08/25 melatonin 3 mg tablet 1.5 mg (1/2 x 3 mg) PO QHS #1 TAB 03/08/25 metformin 500 mg tablet 750 mg (1.5 x 500 mg) PO DAILYCM #1 TAB 03/08/25 metoprolol tartrate 25 mg tablet 25 mg PO BID #1 TAB 03/08/25 nifedipine 30 mg tablet,extended release 24 hr 30 mg PO 1000 #1 TAB 03/08/25 sennosides 8.6 mg-docusate sodium 50 mg tablet (Stimulant Laxative Plus) 2 tab PO BID #1 TAB 03/08/25 tramadol 50 mg tablet 25 mg (1/2 x 50 mg) PO 0700,1400,2100 1 week #21 tabs 03/08/25 Hospital Course Operations - (ORIF for cephalomedullary nail placement on 02/14/[address] Pennie Chacon.) Procedures Transthoracic echo (Normal EF with no wall motion abnormalities. Both atria areof normal size. Focal aortic valve calcification. Mild MR and TR.) Summary of Care Provided Minutes Spent on Discharge: 42 Hospital Course: SHASHI OSWALD, is a 79 YO F with a past medical history of Parkinson's disease? (vs parkinsonism from cerebral atrophy/dementia), diabetes mellitus type 2, hypertension, hypothyroidism (status post thyroidectomy), restless leg syndrome, history of choledocholithiasis (has had an ERCP and placement of temporary biliary stents in November [address] Tran), internal hemorrhoids, iron deficiency anemia and memory problems - suspected dementia) who presented to the emergency department at [facility] on 02/15/2025 complaining of left hip pain and inability to walk. She had a fall the previousweek and had not been able to get up off the couch since then.../ Family and friends provided assistance. Pelvic x-ray revealed a left intertrochanteric fracture. Dr. Chacon was consulted and she was taken to the operating room on 02/16/2025 and underwent left femur cephalomedullary nailing. She was transferred to the acute inpt rehab unit at [facility] on 02/21/25 for 3 hours of therapydaily to restore function/independence at or near her level prior to the fall. Shashi has made steady progress while on rehab. Recovery is complicated by poor cognitive function. BS's were elevated at admission to rehab. She was started on GLucophage and the BS's are well controlled on GLucophage 750 mg Q AMat DC. No BS's > 180 and no hypoglycemia. She is tolerating well with no diarrhea. BP was significantly elevated at admission to rehab. She came to us on losartan 50 mg daily. On 02/23/25 she was in AF with increased resting HR and losartan was held and she was started on metoprolol 25 mg p.o. twice daily. Since starting metoprolol she has been in normal sinus rhythm every time I have examined her. An order was put in for an event monitor at [place]. We discovered that there is a big discrepancy in the blood pressure in the upper extremities. The left arm systolic pressure is 30 to 35 points lower than in the right arm. We have been using the right arm for all blood pressures. When using the right arm the blood pressures were not adequately controlled with metoprolol 25 mg twice daily and she was started on Procardia XL 30 mg daily. Blood pressures for 24 hours prior to discharge ranged from 125/45 to 146/46. She denies lightheadedness. She has a hx of total thyroidectomy but was not on a thyroid supplement at admission to rehab........apparently it was discontinued because she did not want to take it. TSH on 02/16/2025 was 7.5 with a T4 of 1.10. She was started on levothyroxine 25 mcg daily. she will need a TSH and free T4 in 6weeks. Sodium was low on at 131 on 02/22/2025. Workup was not consistent with SIADH. Hyponatremia more likely than not due to sodium depletion and hypothyroidism. With better hydration and starting Levothyroxine the sodium prior to DC is 134 and stable. Shashi has poor oral fluid intake chronically. The BUN at DC is up to 17 but, the creat is stable at 0.54 (BUN/CREAT ratio is 31.2). She had a heme+ stool on rehab but, the HGB is increasing and she has ahx of hemorrhoids. She was chronically constipated at admission and I suspect the heme + stool is due to straining/hard BM's. She is doing well on stool softeners and having regular bowel movements. Shashi had a TTE while on rehab because of a MM and PAF. It showed a normalEF of 60% with no wall motion abnormalities. Both atria were of normal size. There was focal sclerosis of the aortic valve, mild tricuspid regurgitation and mild mitral regurgitation. She has a R carotid bruit and would consider a Carotid US post DC from rehab. At the time of discharge from rehab she is ambulating up to 20 feet with a front wheeled walker at min assist in a wheelchair follow for safety. She is able to go from sitting to standing at contact-guard assist and is moderate assist with a front wheel walker for stand pivot. Not safe to attempt steps yet. She is supervision/set up for eating, grooming and upper body dressing. She requires minimal assistance with bathing. She requires total assistance with lower body dressing. She requires moderate assistance for toilet transfer and is maximum assistance for toileting. She continues to be incontinent of both stool and urine. She requires moderate assistance with tub/shower transfer. Shashi was discharged on 03/09/25 to [facility] for additional therapy. A Follow-up appointment has been made with Dr. Chacon from orthopedics and she will also need to follow up with PCP (Dr. Santana) following [facility]. We have tried to get an appt for her to follow up with Dr. Lozada from neurology for dementia and Parkinson's disease (vs Parkinsonism) but, at the time of DC we have not received a call back form the office. Shashi is very pleasant and appropriate. She is always willing to do therapy. She is sleeping well at night and she has a good appetite. She needs encouragement to increase fluid intake. We have had no behavioral issues and she has not required any sedation or a sitter while on rehab. I suspect she mayneed placement. Not sure her son Ash will be able to provide all the care she will need at home going forward. I tried to wean the Tramadol prior to DC but, the pain with weight bearing increased and we had to go back up to 25 mg TID. Follow up: TSH, T4 in 6 weeks DEXA to evaluate for osteoporosis. Carotid US for R carotid bruit. 30 day Event Monitor (ordered). May need follow up with cardiology depending onthe results. Physical Exam Const alert and no apparent distress Constitutional Narrative: pleasant and appropriate. General Appearance: cooperative and well kempt HEENT HEENT Narrative: Mucous membranes are little dry. No evidence of thrush. Mouth: dry mucous membranes Eyes PERRL, EOMs intact bilaterally, conjunctivae normal and no scleral icterus Eyes Narrative: No discharge from the eyes Neck supple Neck Narrative: Right carotid bruit. Brisk carotid upstroke with good pulse volume. Chest Chest: symmetrical chest wall rise Resp normal respiratory effort Resp Narrative: coarse crackles in the bases (mostly cleared after a few deep breaths), otherwise CTA. No conversational dyspnea. Not tachypneic. Effort and Inspection: Negative for tachypneic Cardio regular rate, regular rhythm, no rub and no gallops Cardio Narrative: She has a systolic murmur at the second right intercostal space with radiation to the lower left sternal border and apex. No diastolic murmurs. No ectopy today. GI normal to inspection, nondistended, normoactive bowel sounds, soft to palpation and non-tender GI Narrative: No guarding with palpation. Having regular bowel movements. Extremity no calf tenderness Extremity Narrative: Still with edema of the left lower extremity but she always has her legs dependent when she is sitting in the recliner. the edema in the Left leg is slowly improving. she was in bad with her legs elevated when I examined her prior to DC and the edema is much better in the thigh. Still with pitting of the ankle. No edema in the right ankle. No pain with compression of the left calf. Venous ultrasound was negative for DVT last week. Skin Skin Narrative: The oscar have been removed and the incisions are intact. No erythema and no DC from the incision. NO swelling around the incision and she had no pain with palpation of the incision and the surrounding area. Rashes: no rashes Neuro CN's II-XII intact bilaterally and moves all extremities Psych cooperative and affect normal Appearance: grossly normal, appropriate and well kempt Attitude: calm and engaged Activity / Motor Behavior: appropriate eye contact; Negative for psychomotor agitation or restless Speech: normal speech Weight / BMI Weight Weight: 128 lb 8.472 oz Body Mass Index (BMI) 23.5 ABG / Lab / Microbiology Data 03/05/25 05:12 03/05/25 05:12 Microbiology: Microbiology 02/23/25 11:40 Urine, Catheterized Urine Culture - Final Escherichia coli 02/22/25 13:45 Stool Stool Occult Blood (JEREMY) - Final Occult Blood Positive D/C Instructions DC O2, CPAP, BIPAP Needs Home O2 Discharge instructions: No Please Follow Up With: Matt Chacon MD Meaningful Use Info Meaningful Use Meaningful Use Diagnoses (Choose all that apply): None applicable Discharge Plan Admission Admit Date/Time: 02/21/25 14:16 Primary Reason for Your Visit: Debility due to Left hip fx/ORIF Attending Provider: Katie Bah Primary Care Provider: Candelario Santaan Chi Instructions Additional Instructions / Restrictions: 1. Use the right arm when taking the blood pressure. She likely has significant vascular disease in the left upper extremity and systolic blood pressure are always 30-40 points lower in the let arm than the R. 2. TSH and free T4 in 6 weeks. 3. Needs constant encouragement to increase fluid intake. 4. Edema in the left leg is related to the surgery and the fact that she does not elevate her legs. Continue with CAMILA alba. Venous ultrasound of the left lower extremity was negative for DVT. Discharge Orders/Prescriptions Prescriptions: New metformin 500 mg Tablet 750 mg PO DAILYCM Qty: 1 0RF melatonin 3 mg Tablet 1.5 mg PO QHS Qty: 1 0RF levothyroxine 25 mcg Tablet 25 mcg PO DAILY@0600 Qty: 1 0RF magnesium hydroxide 400 mg/5 mL Suspension 30 ml PO X1 PRN (Reason: Constipation) Qty: 30 0RF bisacodyl 10 mg Suppository 10 mg MN X1 PRN (Reason: Constipation) Qty: 1 0RF calcium carbonate 200 mg calcium (500 mg) Tablet,Chewable 500 mg PO TIDCM Qty: 1 0RF metoprolol tartrate 25 mg Tablet 25 mg PO BID Qty: 1 0RF nifedipine 30 mg Tablet Extended Release 24hr 30 mg PO 1000 Qty: 1 0RF sennosides-docusate sodium [Stimulant Laxative Plus] 8.6-50 mg Tablet 2 tab PO BID Qty: 1 0RF tramadol 50 mg Tablet 25 mg PO 0700,1400,2100 7 Days Qty: 21 0RF diclofenac sodium [Voltaren Arthritis Pain] 1 % gel 2 g topical BID Qty: 100 0RF Rx Instructions: apply BID to both knees Continued carbidopa-levodopa 25-100 mg tablet 1 tab PO TID acetaminophen 500 mg Tablet 1,000 mg PO Q8 Qty: 0 0RF ergocalciferol (vitamin D2) [Vitamin D2] 1,250 mcg (50,000 unit) Capsule 1,250 mcg PO Q7D Qty: 0 0RF Eliquis 5 mg Tablet 2.5 mg PO BID Qty: 1 0RF Rx Instructions: DC after the last dose on 03/22/25 Discontinued calcium carbonate 200 mg calcium (500 mg) Tablet,Chewable 500 mg PO TIDCM Qty: 0 0RF melatonin 10 mg Tablet, Sublingual 10 mg PO QHS PRN PRN (Reason: Insomnia) Qty: 0 0RF No Action losartan 50 mg tablet 50 mg PO DAILY Other Ambulatory Orders: 30 Day Event Recorder Preventi (Urgent) Timeframe: 3 Days Location: [facility] Ordered By: Dr. Katie Bah Referrals / Follow Up: Matt Chacon MD [Med Staff - Active Staff] - 03/22/25 3:30 pm Shon Lozada MD [Non-Staff -Ordering Privileges] - Disposition Disposition (needs filled in before D/C Order can be placed): Half-Way Facility Charges/Coding Visit Charges Inpatient E&M: 58766 Disch Hosp >30min 03/09/25 1103 <Electronically signed by Katie Bah DO> Cosigner Signature (if applicable): CC: Dr. Matt Chacon MD; Dr. Katie Bah DO; Dr. Shon Lozada MD; Dr. Candelario Santana MD~ Signed [facility] Work Phone: [phone] Discharge summary [facility] Medical Records Department [address] [place] [address] Discharge Summary 03/08/25 1657 MR#: [id number] Acct: [id number] Name: SHASHI OSWALD Rep #:[id number] : 1945 79 From: Katie Bah DO PCP: Dr. Candelario Santana MD Status:ADM I N Location: [place] [address] Providers Date of Admission: 02/21/25 Date of Discharge: 03/09/25 Primary Care Physician: Dr. Candelario Santana MD Reason For Visit: LEFT HIP ORIF Diagnosis Discharge Diagnosis (1) Debility: Status: Acute Code(s): R53.81 - Other malaise (2) Intertrochanteric fracture of left femur: Status: Resolved Code(s): S72.142A - Displaced intertrochanteric fracture of left femur, initial encounterfor closed fracture Qualifiers: Encounter type: initial encounter Fracture alignment: displaced Fracture type: closed Qualified Code(s): S72.142A - Displaced intertrochanteric fracture of left femur, initial encounter for closed fracture (3) History of open reduction and internal fixation (ORIF) procedure: Status: Inactive Code(s): Z98.890 - Other specified postprocedural states Plan: Cephalomedullary nailing by Dr. Pennie Chacon on 02/16/2025. (4) Hyponatremia: Status: Acute Code(s): E87.1 - Hypo-osmolality and hyponatremia Plan: Lab is consistent with dehydration. Stable at 134 on 03/05/25. Poor oral fluid intake. Needs a lot of reminding to increase fluid intake. (5) Anemia: Status: Chronic Code(s): D64.9 - Anemia, unspecified Qualifiers: Anemia type: unspecified type Qualified Code(s): D64.9 - Anemia, unspecified Plan: Acute on chronic anemia due to blood loss from hip fx/ORIF. Hemoglobin on 03/05 is 9.5, up from 8.5 at admission to rehab. Iron studies were not consistent with iron deficiency at admission to rehab and in fact her percent iron saturation is 35%. She has chronic normochromic normocytic anemia but was not taking a thyroid supplement at home. Levothyroxine has been restarted while on rehab and the ch ronic anemia may resolve with appropriate thyroid hormone supplementation. Stool is heme positive but, HGB is increasing so this was not worked up on rehab. (6) Vitamin D deficiency: Status: Chronic Code(s): E55.9 - Vitamin D deficiency, unspecified Plan: Started on calcium and vitamin D supplementation. Will continue at discharge. Recommend a bone density test in the next 3 months. (7) Hypothyroidism: Status: Chronic Code(s): E03.9 - Hypothyroidism, unspecified Qualifiers: Hypothyroidism type: acquired Qualified Code(s): E03.9 - Hypothyroidism, unspecified Plan: Started on levothyroxine 25 mcg daily on rehab. She will continue this at discharge. Will need a follow-up TSH and T4 in 6 weeks. 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 Will continue at discharge. (9) Parkinson's disease: Status: Chronic Code(s): G20.A1 - Parkinson's disease without dyskinesia, without mention of fluctuations Qualifiers: Dyskinesia presence: without dyskinesia Fluctuating manifestations: unspecified whether manifestations fluctuate Qualified Code(s): G20.A1 - Parkinson's disease without dyskinesia, without mention offluctuations Plan: Not sure if she had Parkinson's disease or Parkinsonism due to dementia/cerebralatrophy. Recommend she follow up with neurology at [place] from rehab. (10) Cognitive dysfunction: Status: Chronic Code(s): F09 - Unspecified mental disorder due to known physiological condition Plan: Dementia suspected. Will follow up with neurology. (11) Occult blood in stools: Status: Acute Code(s): R19.5 - Other fecal abnormalities (12) Right carotid bruit: Status: Chronic Code(s): R09.89 - Other specified symptoms and signs involving the circulatory and respiratory systems (13) Fecal incontinence: Status: Chronic Code(s): R15.9 - Full incontinence of feces Qualifiers: Fecal incontinence type: full incontinence of feces Qualified Code(s): R15.9 - Full incontinence offeces (14) Urinary bladder incontinence: Status: Chronic Code(s): R32 - Unspecified urinary incontinence Qualifiers: Urinary Incontinence type: functional incontinence Qualified Code(s): R39.81 - Functional urinary incontinence (15) Paroxysmal atrial fibrillation: Status: Acute Code(s): I48.0 - Paroxysmal atrial fibrillation Plan: She has no hx of this but, she was in AF when I examined her on 02/23/25. HR was in the 90's to low 100's and she was started on Metoprolol. She has been in a regular rhythm every time I have examined her this past week. Will recommend an event monitor at [place]. (16) Orthostatic hypotension: Status: Chronic Code(s): I95.1 - Orthostatic hypotension Plan: This is more likely than not related to dehydration. She has poor oral fluid intake. She is asymptomatic. There is a significant discrepancy in the BP in the R and left arms. The BP in the left arm is always lower than the R. She more likely than not has vascular disease in the L arm. Would use theBP's in the R arm to adjust antihypertensives. (17) Osteoporosis: Status: Suspected Code(s): M81.0 - Age-related osteoporosis without current pathological fracture Qualifiers: Osteoporosis type: age-related Presence of current pathological fracture: without current pathological fracture Qualified Code(s): M81.0 - Age-related osteoporosis without current pathological fracture Plan: Recommend a DEXA following DC from in rehab. Plan 1. DC to [facility] on 03/09 for additional therapy - may need LT placement 2. Event monitor at [place]. 3. DEXA in the near future. 4. CBC and BMP in 1 week 5. TSH and free T4 in 6 weeks. 6. Continue Glucophage 750 mg once daily in the AM. Bs's are in excellent control with no hypoglycemia at the time of DC from rehab 7. Continue Metoprolol 8. She has edema of the LLE due to sitting in the recliner with legs dependent. Venous US prior to DC negative for DVT. Continue CAMILA hose and elevation of thelegs if you can get her to comply. 9. will need to continue Eliquis 2.5 mg BID for DVT prophylaxis.......end date is 03/22/25. 10. Follow-up with Dr. Matt Chacon, orthopedics, postdischarge from rehab. 11. She needs to be encouraged frequently to increase fluid intake. 12. The systolic BP in the left arm is generally 30-40 points lower than in ther arm. she likely has vascular disease in the left arm. Please ALWAYS use the R arm when taking BP and adjusting BP meds. Medications at Discharge Home Medications carbidopa 25 mg-levodopa 100 mg tablet 1 tab PO TID parkinson 02/15/25 losartan 50 mg tablet 50 mg PO DAILY blood pressure 06/26/25 Held on 02/21/25. Instructions: Until blood pressures are consistently greater than 130 systolic acetaminophen 500 mg tablet 1,000 mg (2 x 500 mg) PO Q8 pain #0 tabs 02/21/25 ergocalciferol (vitamin D2) 1,250 mcg (50,000 unit) capsule (Vitamin D2) 1,250 mcg PO Q7D supplement #0 caps 02/21/25 apixaban 5 mg tablet (Eliquis) 2.5 mg (1/2 x 5 mg) PO BID DVT prophylaxis #1 TAB 03/08/25 bisacodyl 10 mg rectal suppository 10 mg MN X1 PRN Constipation #1 ea 03/08/25 calcium carbonate 500 mg (2.5 x 200 mg calcium (500 mg)) PO TIDCM #1 TAB 03/08/25 diclofenac sodium 1 % topical gel (Voltaren Arthritis Pain) 2 g topical BID #100grams 03/08/25 levothyroxine 25 mcg tablet 25 mcg PO DAILY@0600 #1 TAB 03/08/25 magnesium hydroxide 400 mg/5 mL oral suspension 30 ml PO X1 PRN Constipation #30mL 03/08/25 melatonin 3 mg tablet 1.5 mg (1/2 x 3 mg) PO QHS #1 TAB 03/08/25 metformin 500 mg tablet 750 mg (1.5 x 500 mg) PO DAILYCM #1 TAB 03/08/25 metoprolol tartrate 25 mg tablet 25 mg PO BID #1 TAB 03/08/25 nifedipine 30 mg tablet,extended release 24 hr 30 mg PO 1000 #1 TAB 03/08/25 sennosides 8.6 mg-docusate sodium 50 mg tablet (Stimulant Laxative Plus) 2 tab PO BID #1 TAB 03/08/25 tramadol 50 mg tablet 25 mg (1/2 x 50 mg) PO 0700,1400,2100 1 week #21 tabs 03/08/25 Hospital Course Operations - (ORIF for cephalomedullary nail placement on 02/14/[address] Pennie Chacon.) Procedures Transthoracic echo (Normal EF with no wall motion abnormalities. Both atria areof normal size. Focal aortic valve calcification. Mild MR and TR.) Summary of Care Provided Minutes Spent on Discharge: 42 Hospital Course: SHASHI OSWALD, is a 79 YO F with a past medical history of Parkinson's disease? (vs parkinsonism from cerebral atrophy/dementia), diabetes mellitus type 2, hypertension, hypothyroidism (status post thyroidectomy), restless leg syndrome, history of choledocholithiasis (has had an ERCP and placement of temporary biliary stents in November [address] Tran), internal hemorrhoids, iron deficiency anemia and memory problems - suspected dementia) who presented to the emergency department at [facility] on 02/15/2025 complaining of left hip pain and inability to walk. She had a fall the previousweek and had not been able to get up off the couch since then.../ Family and friends provided a ssistance. Pelvic x-ray revealed a left intertrochanteric fracture. Dr. Chacon was consulted and shewas taken to the operating room on 02/16/2025 and underwent left femur cephalomedullary nailing. Shewas transferred to the acute inpt rehab unit at [facility] on 02/21/25 for 3 hours of therapydaily to restore function/independence at or near her level prior to the fall. Shashi has made steady progress while on rehab. Recovery is complicated by poor cognitive function. BS's were elevated at admission to rehab. She was started on GLucophage and the BS's are well controlled on GLucophage 750 mg Q AMat DC. No BS's > 180 and no hypoglycemia. She is tolerating well with no diarrhea. BP was significantly elevated at admission to rehab. She came to us on losartan 50 mg daily. On 02/23/25 she was in AF with increased resting HR and losartan was held and she was startedon metoprolol 25 mg p.o. twice daily. Since starting metoprolol she has been in normal sinus rhythmevery time I have examined her. An order was put in for an event monitor at [place]. We discovered that there is a big discrepancy in the blood pressure in the upper extremities. The left arm systolic pressure is 30 to 35 points lower than in the right arm. We have been using the right arm for all bloodpressures. When using the right arm the blood pressures were not adequately controlled with metoprolol 25 mg twice daily and she was started on Procardia XL 30 mg daily. Blood pressures for 24 hours prior to discharge ranged from 125/45 to 146/46. She denies lightheadedness. She has a hx of total thyroidectomy but was not on a thyroid supplement at admission to rehab........apparently it was discontinued because she did not want to take it. TSH on 02/16/2025 was 7.5 with a T4 of 1.10. She was started on levothyroxine 25 mcg daily. she will need a TSH and free T4 in 6weeks. Sodium was low on at131 on 02/22/2025. Workup was not consistent with SIADH. Hyponatremia more likely than not due to sodium depletion and hypothyroidism. With better hydration and starting Levothyroxine the sodium prior to DC is 134 and stable. Shashi has poor oral fluid intake chronically. The BUN at DC is up to 17 but, the creat is stable at 0.54 (BUN/CREAT ratio is 31.2). She had a heme+ stool on rehab but, the HGBis increasing and she has ahx of hemorrhoids. She was chronically constipated at admission and I suspect the heme + stool is due to straining/hard BM's. She is doing well on stool softeners and having regular bowel movements. Shashi had a TTE while on rehab because of a MM and PAF. It showed a normalEF of 60% with no wall motion abnormalities. Both atria were of normal size. There was focal sclerosis of the aortic valve, mild tricuspid regurgitation and mild mitral regurgitation. She has a R carotid bruit and would consider a Carotid US post DC from rehab. At the time of discharge from rehab she is ambulating up to 20 feet with a front wheeled walker at min assist in a wheelchair follow for safety. She is able to go from sitting to standing at contact-guard assist and is moderate assist with a front wheel walker for stand pivot. Not safe to attempt steps yet. She is supervision/set up for eating, grooming and upper body dressing. She requires minimal assistance with bathing. She requires total assistance with lower body dressing. She requires moderate assistance for toilet transfer and is maximum assistance for toileting. She continues to be incontinent of both stool and urine. She requires moderate assistance with tub/shower transfer. Shashi was discharged on 03/09/25 to [facility] for additional therapy. A Follow-up appointment has been made with Dr. Chacon from orthopedics and she will also need to follow up with PCP (Dr. Santana) following [facility]. We have tried to get an appt for her to follow up with Dr. Lozada from neurology for dementia and Parkinson's disease (vs Parkinsonism) but, at the time of DC we have not received a call back form the office. Shashi is very pleasant and appropriate. She is always willing to do therapy. She is sleeping well at night and she has a good appetite. She needs encouragement to increase fluid intake. We have had no behavioral issues and she has not required any sedation or a sitter while on rehab. I suspect she mayneed placement. Not sure her son Ash will be able to provide all the care she will need at home going forward. I tried to wean the Tramadol prior to DC but, the pain with weight bearing increased and we had to go back up to 25 mg TID. Follow up: TSH, T4 in 6 weeks DEXA to evaluate for osteoporosis. Carotid US for R carotid bruit. 30 day Event Monitor (ordered). May need follow up with cardiology depending onthe results. Physical Exam Const alert and no apparent distress Constitutional Narrative: pleasant and appropriate. General Appearance: cooperative and well kempt HEENT HEENT Narrative: Mucous membranes are little dry. No evidence of thrush. Mouth: dry mucous membranes Eyes PERRL, EOMs intact bilaterally, conjunctivae normal and no scleral icterus Eyes Narrative: No discharge from the eyes Neck supple Neck Narrative: Right carotid bruit. Brisk carotid upstroke with good pulse volume. Chest Chest: symmetrical chest wall rise Resp normal respiratory effort Resp Narrative: coarse crackles in the bases (mostly cleared after a few deep breaths), otherwise CTA. No conversational dyspnea. Not tachypneic. Effort and Inspection: Negative for tachypneic Cardio regular rate, regular rhythm, no rub and no gallops Cardio Narrative: She has a systolic murmur at the second right intercostal space with radiation to the lower left sternal border and apex. No diastolic murmurs. No ectopy today. GI normal to inspection, nondistended, normoactive bowel sounds, soft to palpation and non-tender GI Narrative: No guarding with palpation. Having regular bowel movements. Extremity no calf tenderness Extremity Narrative: Still with edema of the left lower extremity but she always has her legs dependent when she is sitting in the recliner. the edema in the Left leg is slowly improving. she was in bad with her legs elevated when I examined her prior to DC and the edema is much better in the thigh. Still with pitting of the ankle. No edema in the right ankle. No pain with compression of the left calf. Venous ultrasound was negative for DVT last week. Skin Skin Narrative: The oscar have been removed and the incisions are intact. No erythema and no DC from the incision. NO swelling around the incision and she had no pain with palpation of the incision and the surrounding area. Rashes: no rashes Neuro CN's II-XII intact bilaterally and moves all extremities Psych cooperative and affect normal Appearance: grossly normal, appropriate and well kempt Attitude: calm and engaged Activity / Motor Behavior: appropriate eye contact; Negative for psychomotor agitation or restless Speech: normal speech Weight / BMI Weight Weight: 128 lb 8.472 oz Body Mass Index (BMI) 23.5 ABG / Lab / Microbiology Data 03/05/25 05:12 03/05/25 05:12 Microbiology: Microbiology 02/23/25 11:40 Urine, Catheterized Urine Culture - Final Escherichia coli 02/22/25 13:45 Stool Stool Occult Blood (JEREMY) - Final Occult Blood Positive D/C Instructions DC O2, CPAP, BIPAP Needs Home O2 Discharge instructions: No Please Follow Up With: Matt Chacon MD Meaningful Use Info Meaningful Use Meaningful Use Diagnoses (Choose all that apply): None applicable Discharge Plan Admission Admit Date/Time: 02/21/25 14:16 Primary Reason for Your Visit: Debility due to Left hip fx/ORIF Attending Provider: Katie Bah Primary Care Provider: Candelario Santana Chi Instructions Additional Instructions / Restrictions: 1. Use the right arm when taking the blood pressure. She likely has significant vascular disease inthe left upper extremity and systolic blood pressure are always 30-40 points lower in the let arm than the R. 2. TSH and free T4 in 6 weeks. 3. Needs constant encouragement to increase fluid intake. 4. Edema in the left leg is related to the surgery and the fact that she does not elevate her legs.Continue with CAMILA alba. Venous ultrasound of the left lower extremity was negative for DVT. Discharge Orders/Prescriptions Prescriptions: New metformin 500 mg Tablet 750 mg PO DAILYCM Qty: 1 0RF melatonin 3 mg Tablet 1.5 mg PO QHS Qty: 1 0RF levothyroxine 25 mcg Tablet 25 mcg PO DAILY@0600 Qty: 1 0RF magnesium hydroxide 400 mg/5 mL Suspension 30 ml PO X1 PRN (Reason: Constipation) Qty: 30 0RF bisacodyl 10 mg Suppository 10 mg MN X1 PRN (Reason: Constipation) Qty: 1 0RF calcium carbonate 200 mg calcium (500 mg) Tablet,Chewable 500 mg PO TIDCM Qty: 1 0RF metoprolol tartrate 25 mg Tablet 25 mg PO BID Qty: 1 0RF nifedipine 30 mg Tablet Extended Release 24hr 30 mg PO 1000 Qty: 1 0RF sennosides-docusate sodium [Stimulant Laxative Plus] 8.6-50 mg Tablet 2 tab PO BID Qty: 1 0RF tramadol 50 mg Tablet 25 mg PO 0700,1400,2100 7 Days Qty: 21 0RF diclofenac sodium [Voltaren Arthritis Pain] 1 % gel 2 g topical BID Qty: 100 0RF Rx Instructions: apply BID to both knees Continued carbidopa-levodopa 25-100 mg tablet 1 tab PO TID acetaminophen 500 mg Tablet 1,000 mg PO Q8 Qty: 0 0RF ergocalciferol (vitamin D2) [Vitamin D2] 1,250 mcg (50,000 unit) Capsule 1,250 mcg PO Q7D Qty: 0 0RF Eliquis 5 mg Tablet 2.5 mg PO BID Qty: 1 0RF Rx Instructions: DC after the last dose on 03/22/25 Discontinued calcium carbonate 200 mg calcium (500 mg) Tablet,Chewable 500 mg PO TIDCM Qty: 0 0RF melatonin 10 mg Tablet, Sublingual 10 mg PO QHS PRN PRN (Reason: Insomnia) Qty: 0 0RF No Action losartan 50 mg tablet 50 mg PO DAILY Other Ambulatory Orders: 30 Day Event Recorder Preventi (Urgent) Timeframe: 3 Days Location: [facility] Ordered By: Dr. Katie Bah Referrals / Follow Up: Matt Chacon MD [Med Staff - Active Staff] - 03/22/25 3:30 pm Shon Lozada MD [Non-Staff -Ordering Privileges] - Disposition Disposition (needs filled in before D/C Order can be placed): Half-Way Facility Charges/Coding Visit Charges Inpatient E&M: 03638 Disch Hosp >30min 03/09/25 1103 Cosigner Signature (if applicable): CC: Dr. Matt Chacon MD; Dr. Katie Bah DO; Dr. Shon Lozada MD; Dr. Candelario Santana MD~ Signed [facility]07-17-2025 Discharge summary Author Katie Olvin [facility] Note Date/Time March 08, 2025 4:57 pm [facility] Medical Records Department [address] [place] [address] Transfer to [facility] MR#: [id number] Acct: [id number] Name: SHASHI OSWALD Rep #:[id number] : 1945 79 From: Katie Bah DO PCP: Dr. Candelario Santana MD Status:ADM I N Certification of patient admission REQUIRED AT TIME OF ADMISSION. I CERTIFY THAT POST-HOSPITAL ECF SERVICES ARE REQUIRED TO BE GIVEN ON AN IN-PATIENT BASIS BECAUSE OF THE ABOVE NAMED PATIENT'S NEED FOR LONG TERM CARE ON A CONTINUING BASIS FOR THE CONDITION(S) FOR WHICH HE/SHE WAS RECEIVING IN-PATIENT HOSPITAL SERVICES PRIOR TO HIS/HER TRANSFER TO THE [facility]. 03/08/25 1657<Electronically signed by Katie Bah DO> Diet Diet Order/Speech Therapy: INPATIENT Hospital Diet / Speech Therapy Order(s) 02/22/25 14:45 Diet: Carbohydrate Controlled Food consistency:: Regular Liquid Consistency:: Regular/Thin Type of Dietary Supplement:: Glucerna Shake Diet Comments: small portions per pt request; 120ml strawberry glucerna shakewith dinner Routine Orders/Code Status Enema Type: Fleetz Enema Frequency: Daily PRN Suppository Type: Dulcolax 10mg Suppository Frequency: Daily PRN Routine Lab Work: - (CBC, BMP in 1 week) Code Status: Full Code DC O2, CPAP, BIPAP needs Home O2 Discharge instructions: No Wound(s) Lt Hip: Wound Type: Surgical Incision (Leave incisions open to air) Therapies Weight Bearing: Full weight bearing Extremity Affected:: Left Lower Physical Therapy: Eval and Treat Occupational Therapy: Eval and Treat Speech Therapy: Eval and Treat Problem/Diagnosis (1) Debility: Status: Acute Code(s): R53.81 - Other malaise (2) Intertrochanteric fracture of left femur: Status: Resolved Code(s): S72.142A - Displaced intertrochanteric fracture of left femur, initial encounterfor closed fracture (3) History of open reduction and internal fixation (ORIF) procedure: Status: Acute Code(s): Z98.890 - Other specified postprocedural states Comment: Left hip cephalomedullary nailing 02/16/[address] Chacon (4) Hyponatremia: Status: Acute Code(s): E87.1 - Hypo-osmolality and hyponatremia Plan: Lab is consistent with dehydration. Stable at 134 on 03/05/25. Poor oral fluid intake. Needs a lot of reminding to increase fluid intake. (5) Anemia: Status: Chronic Code(s): D64.9 - Anemia, unspecified Plan: Acute on chronic anemia due to blood loss from hip fx/ORIF. Hemoglobin on 03/05 is 9.5, up from 8.5 at admission to rehab. Iron studies were not consistent with iron deficiency at admission to rehab and in fact her percent iron saturation is 35%. She has chronic normochromic normocytic anemia but was not taking a thyroid supplement at home. Levothyroxine has been restarted while on rehab andthe chronic anemia may resolve with appropriate thyroid hormone supplementation. Stool is heme positive but, HGB is increasing so this was not worked up on rehab. Comment: Normochromic normocytic with an increased RDW. (6) Vitamin D deficiency: Status: Chronic Code(s): E55.9 - Vitamin D deficiency, unspecified Plan: Started on calcium and vitamin D supplementation. Will continue at discharge. Recommend a bone density test in the next 3 months. (7) Hypothyroidism: Status: Chronic Code(s): E03.9 - Hypothyroidism, unspecified Plan: Started on levothyroxine 25 mcg daily on rehab. She will continue this at discharge. Will need a follow-up TSH and T4 in 6 weeks. Comment: Stopped taking her meds because she felt "fine" (8) Diabetes mellitus, type 2: Status: Chronic Code(s): E11.9 - Type 2 diabetes mellitus without complications Plan: Blood sugars have been under excellent control on Glucophage 750 mg once daily in the AM. Will continue at discharge. Comment: HGBA1C is 7.3 on no medications (9) Parkinson's disease: Status: Chronic Code(s): G20.A1 - Parkinson's disease without dyskinesia, without mention of fluctuations Plan: Not sure if she had Parkinson's disease or Parkinsonism due to dementia/cerebralatrophy. Recommend she follow up with neurology at [place] from rehab. Comment: Diagnosed by Dr. Santana and placed on Sinemet. (10) Cognitive dysfunction: Status: Chronic Code(s): F09 - Unspecified mental disorder due to known physiological condition Plan: Dementia suspected. Will follow up with neurology. (11) Occult blood in stools: Status: Acute Code(s): R19.5 - Other fecal abnormalities Comment: has had this in the past and it was negative but, stool + on 02/22/25 (12) Right carotid bruit: Status: Chronic Code(s): R09.89 - Other specified symptoms and signs involving the circulatory and respiratory systems (13) Fecal incontinence: Status: Chronic Code(s): R15.9 - Full incontinence of feces (14) Urinary bladder incontinence: Status: Chronic Code(s): R32 - Unspecified urinary incontinence (15) Paroxysmal atrial fibrillation: Status: Acute Code(s): I48.0 - Paroxysmal atrial fibrillation Plan: She has no hx of this but, she was in AF when I examined her on 02/23/25. HR was in the 90's to low 100's and she was started on Metoprolol. She has been in a regular rhythm every time I have examined her this past week. Will recommend an event monitor at [place]. (16) Orthostatic hypotension: Status: Chronic Code(s): I95.1 - Orthostatic hypotension Plan: This is more likely than not related to dehydration. She has poor oral fluid intake. She is asymptomatic. There is a significant discrepancy in the BP in the R and left arms. The BP in the left arm is always lower than the R. She more likely than not has vascular disease in the L arm. Would use the BP's in the R arm to adjust antihypertensives. (17) Osteoporosis: Status: Suspected Code(s): M81.0 - Age-related osteoporosis without current pathological fracture Plan: Recommend a DEXA following DC from in rehab. Comment: Needs to have an outpatient DEXA Plan 1. DC to [facility] on 03/09 for additional therapy - may need LT placement 2. Event monitor at DC. 3. DEXA in the near future. 4. CBC and BMP in 1 week 5. TSH and free T4 in 6 weeks. 6. Continue Glucophage 750 mg once daily in the AM. Bs's are in excellent control with no hypoglycemia at the time of DC from rehab 7. Continue Metoprolol 8. She has edema of the LLE due to sitting in the recliner with legs dependent. Venous US prior to DC negative for DVT. Continue CAMILA hose and elevation of thelegs if you can get her to comply. 9. will need to continue Eliquis 2.5 mg BID for DVT prophylaxis.......end date is 03/22/25. 10. Follow-up with Dr. Matt Chacon, orthopedics, postdischarge from rehab. 11. She needs to be encouraged frequently to increase fluid intake. 12. The systolic BP in the left arm is generally 30-40 points lower than in ther arm. she likely has vascular disease in the left arm. Please ALWAYS use the R arm when taking BP and adjusting BP meds. Allergies/Procedures Done in Hospital Allergies Penicillins Allergy (Intermediate, Verified 02/15/25 13:14) Hives Procedures: Transthoracic Echo (EF is 60% with no wall motion abnormalities. There is mild focal aortic valve calcification. Both atria are of normal size. She has mild TR and mild MR.) and - (Open reduction internal fixation with cephalomedullary nailing by Dr. Chacon on 02/16/2025.) Type of Care/Length of Stay Estimated LOS: Convalescent Care Less Than 30 days Type of Care Needed: Skilled Rehab Potential: Good Prognosis: Fair Additional Orders/Day of Discharge H&P will serve as current which was dated: 02/22/25 Day of Discharge: 03/09/25 Dietary and Speech Recommendations Dietitian Recommendations/Changes: Continue consistent carbohydrate with small portions per pt request. Will order 120ml strawberry glucerna shake with dinner. Will monitor weight trends. Follow Up Care Please follow up with your Primary Care Physician in: Dr. Santana following DC formSNF. Please Follow Up With: Matt Chacon MD When: call the office for an appt. Please Follow Up With: Shon Lozada MD When: within the next 2-3 weeks for dementia/Parkinson's disease vs parkinsonism Discharge Plan Admission Admit Date/Time: 02/21/25 14:16 Primary Reason for Your Visit: Debility due to Left hip fx/ORIF Attending Provider: Katie Bah Primary Care Provider: Candelario Santana Chi Instructions Additional Instructions / Restrictions: 1. Use the right arm when taking the blood pressure. She likely has significant vascular disease in the left upper extremity and systolic blood pressure are always 30-40 points lower in the let arm than the R. 2. TSH and free T4 in 6 weeks. 3. Needs constant encouragement to increase fluid intake. 4. Edema in the left leg is related to the surgery and the fact that she does not elevate her legs. Continue with CAMILA alba. Venous ultrasound of the left lower extremity was negative for DVT. Discharge Orders/Prescriptions Prescriptions: New metformin 500 mg Tablet 750 mg PO DAILYCM Qty: 1 0RF melatonin 3 mg Tablet 1.5 mg PO QHS Qty: 1 0RF levothyroxine 25 mcg Tablet 25 mcg PO DAILY@0600 Qty: 1 0RF magnesium hydroxide 400 mg/5 mL Suspension 30 ml PO X1 PRN (Reason: Constipation) Qty: 30 0RF bisacodyl 10 mg Suppository 10 mg MN X1 PRN (Reason: Constipation) Qty: 1 0RF calcium carbonate 200 mg calcium (500 mg) Tablet,Chewable 500 mg PO TIDCM Qty: 1 0RF metoprolol tartrate 25 mg Tablet 25 mg PO BID Qty: 1 0RF nifedipine 30 mg Tablet Extended Release 24hr 30 mg PO 1000 Qty: 1 0RF sennosides-docusate sodium [Stimulant Laxative Plus] 8.6-50 mg Tablet 2 tab PO BID Qty: 1 0RF tramadol 50 mg Tablet 25 mg PO 0700,1400,2100 7 Days Qty: 21 0RF diclofenac sodium [Voltaren Arthritis Pain] 1 % gel 2 g topical BID Qty: 100 0RF Rx Instructions: apply BID to both knees Continued carbidopa-levodopa 25-100 mg tablet 1 tab PO TID acetaminophen 500 mg Tablet 1,000 mg PO Q8 Qty: 0 0RF ergocalciferol (vitamin D2) [Vitamin D2] 1,250 mcg (50,000 unit) Capsule 1,250 mcg PO Q7D Qty: 0 0RF Eliquis 5 mg Tablet 2.5 mg PO BID Qty: 1 0RF Rx Instructions: DC after the last dose on 03/22/25 Discontinued calcium carbonate 200 mg calcium (500 mg) Tablet,Chewable 500 mg PO TIDCM Qty: 0 0RF melatonin 10 mg Tablet, Sublingual 10 mg PO QHS PRN PRN (Reason: Insomnia) Qty: 0 0RF No Action losartan 50 mg tablet 50 mg PO DAILY Other Ambulatory Orders: 30 Day Event Recorder Preventi (Urgent) Timeframe: 3 Days Location: [facility] Ordered By: Dr. Katie Bah Referrals / Follow Up: Matt Chacon MD [Med Staff - Active Staff] - 03/22/25 3:30 pm Shon Lozada MD [Non-Staff -Ordering Privileges] - Disposition Disposition (needs filled in before D/C Order can be placed): Half-Way Facility (2) Intertrochanteric fracture of left femur Qualifiers: Encounter type: initial encounter Fracture alignment: displaced Fracture type: closed Qualified Code(s): S72.142A - Displaced intertrochanteric fractureof left femur, initial encounter for closed fracture (5) Anemia Qualifiers: Anemia type: unspecified type Qualified Code(s): D64.9 - Anemia, unspecified (7) Hypothyroidism Qualifiers: Hypothyroidism type: acquired Qualified Code(s): E03.9 - Hypothyroidism, unspecified (8) Diabetes mellitus, type 2 Qualifiers: Diabetes mellitus complication status: with other specified complication 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: 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 Qualified Code(s): E11.69 - Type 2 diabetes mellitus with other specified complication (9) Parkinson's disease Qualifiers: Dyskinesia presence: without dyskinesia Fluctuating manifestations: unspecified whether manifestations fluctuate Qualified Code(s): G20.A1 - Parkinson's disease without dyskinesia, without mention of fluctuations (13) Fecal incontinence Qualifiers: Fecal incontinence type: full incontinence of feces Qualified Code(s): R15.9 - Full incontinence of feces (14) Urinary bladder incontinence Qualifiers: Urinary Incontinence type: functional incontinence Qualified Code(s): R39.81 - Functional urinary incontinence (17) Osteoporosis Qualifiers: Osteoporosis type: age-related Presence of current pathological fracture: without current pathological fracture Qualified Code(s): M81.0 - Age-related osteoporosis without current pathological fracture 07/17/25 1657 <Electronically signed by Katie Bah DO> Cosigner Signature (if applicable): CC: Dr. Matt Chacon MD; Dr. Shon Lozada MD; Dr. Candelario Santana MD ~ [facility] Work Phone: [phone] Discharge summary [facility] Medical Records Department [address] [place] [address] Transfer to [facility] MR#: [id number] Acct: [id number] Name: SHASHI OSWALD Rep #:[id number] : 1945 79 From: Katie Bah DO PCP: Dr. Candelario Santana MD Status:ADM I N Certification of patient admission REQUIRED AT TIME OF ADMISSION. I CERTIFY THAT POST-HOSPITAL ECF SERVICES ARE REQUIRED TO BE GIVEN ON AN IN-PATIENT BASIS BECAUSE OF THE ABOVE NAMED PATIENT'S NEED FOR LONG TERM CARE ON A CONTINUING BASIS FOR THE CONDITION(S) FOR WHICH HE/SHE WAS RECEIVING IN-PATIENT HOSPITAL SERVICES PRIOR TO HIS/HER TRANSFER TO THE [facility]. 03/08/251656 Diet Diet Order/Speech Therapy: INPATIENT Hospital Diet / Speech Therapy Order(s) 02/22/25 14:45 Diet: Carbohydrate Controlled Food consistency:: Regular Liquid Consistency:: Regular/Thin Type of Dietary Supplement:: Glucerna Shake Diet Comments: small portions per pt request; 120ml strawberry glucerna shakewith dinner Routine Orders/Code Status Enema Type: Fleetz Enema Frequency: Daily PRN Suppository Type: Dulcolax 10mg Suppository Frequency: Daily PRN Routine Lab Work: - (CBC, BMP in 1 week) Code Status: Full Code DC O2, CPAP, BIPAP needs Home O2 Discharge instructions: No Wound(s) Lt Hip: Wound Type: Surgical Incision (Leave incisions open to air) Therapies Weight Bearing: Full weight bearing Extremity Affected:: Left Lower Physical Therapy: Eval and Treat Occupational Therapy: Eval and Treat Speech Therapy: Eval and Treat Problem/Diagnosis (1) Debility: Status: Acute Code(s): R53.81 - Other malaise (2) Intertrochanteric fracture of left femur: Status: Resolved Code(s): S72.142A - Displaced intertrochanteric fracture of left femur, initial encounterfor closed fracture (3) History of open reduction and internal fixation (ORIF) procedure: Status: Acute Code(s): Z98.890 - Other specified postprocedural states Comment: Left hip cephalomedullary nailing 02/16/[address] Chacon (4) Hyponatremia: Status: Acute Code(s): E87.1 - Hypo-osmolality and hyponatremia Plan: Lab is consistent with dehydration. Stable at 134 on 03/05/25. Poor oral fluid intake. Needs a lot of reminding to increase fluid intake. (5) Anemia: Status: Chronic Code(s): D64.9 - Anemia, unspecified Plan: Acute on chronic anemia due to blood loss from hip fx/ORIF. Hemoglobin on 03/05 is 9.5, up from 8.5 at admission to rehab. Iron studies were not consistent with iron deficiency at admission to rehab and in fact her percent iron saturation is 35%. She has chronic normochromic normocytic anemia but was not taking a thyroid supplement at home. Levothyroxine has been restarted while on rehab andthe chr onic anemia may resolve with appropriate thyroid hormone supplementation. Stool is heme positive but, HGB is increasing so this was not worked up on rehab. Comment: Normochromic normocytic with an increased RDW. (6) Vitamin D deficiency: Status: Chronic Code(s): E55.9 - Vitamin D deficiency, unspecified Plan: Started on calcium and vitamin D supplementation. Will continue at discharge. Recommend a bone density test in the next 3 months. (7) Hypothyroidism: Status: Chronic Code(s): E03.9 - Hypothyroidism, unspecified Plan: Started on levothyroxine 25 mcg daily on rehab. She will continue this at discharge. Will need a follow-up TSH and T4 in 6 weeks. Comment: Stopped taking her meds because she felt "fine" (8) Diabetes mellitus, type 2: Status: Chronic Code(s): E11.9 - Type 2 diabetes mellitus without complications Plan: Blood sugars have been under excellent control on Glucophage 750 mg once daily in the AM. Will continue at discharge. Comment: HGBA1C is 7.3 on no medications (9) Parkinson's disease: Status: Chronic Code(s): G20.A1 - Parkinson's disease without dyskinesia, without mention of fluctuations Plan: Not sure if she had Parkinson's disease or Parkinsonism due to dementia/cerebralatrophy. Recommend she follow up with neurology at [place] from rehab. Comment: Diagnosed by Dr. Santana and placed on Sinemet. (10) Cognitive dysfunction: Status: Chronic Code(s): F09 - Unspecified mental disorder due to known physiological condition Plan: Dementia suspected. Will follow up with neurology. (11) Occult blood in stools: Status: Acute Code(s): R19.5 - Other fecal abnormalities Comment: has had this in the past and it was negative but, stool + on 02/22/25 (12) Right carotid bruit: Status: Chronic Code(s): R09.89 - Other specified symptoms and signs involving the circulatory and respiratory systems (13) Fecal incontinence: Status: Chronic Code(s): R15.9 - Full incontinence of feces (14) Urinary bladder incontinence: Status: Chronic Code(s): R32 - Unspecified urinary incontinence (15) Paroxysmal atrial fibrillation: Status: Acute Code(s): I48.0 - Paroxysmal atrial fibrillation Plan: She has no hx of this but, she was in AF when I examined her on 02/23/25. HR was in the 90's to low 100's and she was started on Metoprolol. She has been in a regular rhythm every time I have examined her this past week. Will recommend an event monitor at [place]. (16) Orthostatic hypotension: Status: Chronic Code(s): I95.1 - Orthostatic hypotension Plan: This is more likely than not related to dehydration. She has poor oral fluid intake. She is asymptomatic. There is a significant discrepancy in the BP in the R and left arms. The BP in the left arm is always lower than the R. She more likely than not has vascular disease in the L arm. Would use theBP's in the R arm to adjust antihypertensives. (17) Osteoporosis: Status: Suspected Code(s): M81.0 - Age-related osteoporosis without current pathological fracture Plan: Recommend a DEXA following DC from in rehab. Comment: Needs to have an outpatient DEXA Plan 1. DC to [facility] on 03/09 for additional therapy - may need LT placement 2. Event monitor at DC. 3. DEXA in the near future. 4. CBC and BMP in 1 week 5. TSH and free T4 in 6 weeks. 6. Continue Glucophage 750 mg once daily in the AM. Bs's are in excellent control with no hypoglycemia at the time of DC from rehab 7. Continue Metoprolol 8. She has edema of the LLE due to sitting in the recliner with legs dependent. Venous US prior to DC negative for DVT. Continue CAMILA hose and elevation of thelegs if you can get her to comply. 9. will need to continue Eliquis 2.5 mg BID for DVT prophylaxis.......end date is 03/22/25. 10. Follow-up with Dr. Matt Chacon, orthopedics, postdischarge from rehab. 11. She needs to be encouraged frequently to increase fluid intake. 12. The systolic BP in the left arm is generally 30-40 points lower than in ther arm. she likely has vascular disease in the left arm. Please ALWAYS use the R arm when taking BP and adjusting BP meds. Allergies/Procedures Done in Hospital Allergies Penicillins Allergy (Intermediate, Verified 02/15/25 13:14) Hives Procedures: Transthoracic Echo (EF is 60% with no wall motion abnormalities. There is mild focal aortic valve calcification. Both atria are of normal size. She has mild TR and mild MR.) and - (Open reduction internal fixation with cephalomedullary nailing by Dr. Chacon on 02/16/2025.) Type of Care/Length of Stay Estimated LOS: Convalescent Care Less Than 30 days Type of Care Needed: Skilled Rehab Potential: Good Prognosis: Fair Additional Orders/Day of Discharge H&P will serve as current which was dated: 02/22/25 Day of Discharge: 03/09/25 Dietary and Speech Recommendations Dietitian Recommendations/Changes: Continue consistent carbohydrate with small portions per pt request. Will order 120ml strawberry glucerna shake with dinner. Will monitor weight trends. Follow Up Care Please follow up with your Primary Care Physician in: Dr. Santana following DC formSNF. Please Follow Up With: Matt Chacon MD When: call the office for an appt. Please Follow Up With: Shon Lozada MD When: within the next 2-3 weeks for dementia/Parkinson's disease vs parkinsonism Discharge Plan Admission Admit Date/Time: 02/21/25 14:16 Primary Reason for Your Visit: Debility due to Left hip fx/ORIF Attending Provider: Katie Bah Primary Care Provider: Candelario Santana Chi Instructions Additional Instructions / Restrictions: 1. Use the right arm when taking the blood pressure. She likely has significant vascular disease inthe left upper extremity and systolic blood pressure are always 30-40 points lower in the let arm than the R. 2. TSH and free T4 in 6 weeks. 3. Needs constant encouragement to increase fluid intake. 4. Edema in the left leg is related to the surgery and the fact that she does not elevate her legs.Continue with CAMILA alba. Venous ultrasound of the left lower extremity was negative for DVT. Discharge Orders/Prescriptions Prescriptions: New metformin 500 mg Tablet 750 mg PO DAILYCM Qty: 1 0RF melatonin 3 mg Tablet 1.5 mg PO QHS Qty: 1 0RF levothyroxine 25 mcg Tablet 25 mcg PO DAILY@0600 Qty: 1 0RF magnesium hydroxide 400 mg/5 mL Suspension 30 ml PO X1 PRN (Reason: Constipation) Qty: 30 0RF bisacodyl 10 mg Suppository 10 mg MN X1 PRN (Reason: Constipation) Qty: 1 0RF calcium carbonate 200 mg calcium (500 mg) Tablet,Chewable 500 mg PO TIDCM Qty: 1 0RF metoprolol tartrate 25 mg Tablet 25 mg PO BID Qty: 1 0RF nifedipine 30 mg Tablet Extended Release 24hr 30 mg PO 1000 Qty: 1 0RF sennosides-docusate sodium [Stimulant Laxative Plus] 8.6-50 mg Tablet 2 tab PO BID Qty: 1 0RF tramadol 50 mg Tablet 25 mg PO 0700,1400,2100 7 Days Qty: 21 0RF diclofenac sodium [Voltaren Arthritis Pain] 1 % gel 2 g topical BID Qty: 100 0RF Rx Instructions: apply BID to both knees Continued carbidopa-levodopa 25-100 mg tablet 1 tab PO TID acetaminophen 500 mg Tablet 1,000 mg PO Q8 Qty: 0 0RF ergocalciferol (vitamin D2) [Vitamin D2] 1,250 mcg (50,000 unit) Capsule 1,250 mcg PO Q7D Qty: 0 0RF Eliquis 5 mg Tablet 2.5 mg PO BID Qty: 1 0RF Rx Instructions: DC after the last dose on 03/22/25 Discontinued calcium carbonate 200 mg calcium (500 mg) Tablet,Chewable 500 mg PO TIDCM Qty: 0 0RF melatonin 10 mg Tablet, Sublingual 10 mg PO QHS PRN PRN (Reason: Insomnia) Qty: 0 0RF No Action losartan 50 mg tablet 50 mg PO DAILY Other Ambulatory Orders: 30 Day Event Recorder Preventi (Urgent) Timeframe: 3 Days Location: [facility] Ordered By: Dr. Katie Bah Referrals / Follow Up: Matt Chacon MD [Med Staff - Active Staff] - 03/22/25 3:30 pm Shon Lozada MD [Non-Staff -Ordering Privileges] - Disposition Disposition (needs filled in before D/C Order can be placed): Half-Way Facility (2) Intertrochanteric fracture of left femur Qualifiers: Encounter type: initial encounter Fracture alignment: displaced Fracture type: closed Qualified Code(s): S72.142A - Displaced intertrochanteric fractureof left femur, initial encounter for closed fracture (5) Anemia Qualifiers: Anemia type: unspecified type Qualified Code(s): D64.9 - Anemia, unspecified (7) Hypothyroidism Qualifiers: Hypothyroidism type: acquired Qualified Code(s): E03.9 - Hypothyroidism, unspecified (8) Diabetes mellitus, type 2 Qualifiers: Diabetes mellitus complication status: with other specified complication Diabetes mellitus alf insulin use: 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 Qualified Code(s): E11.69 - Type 2 diabetes mellitus with otherspecified complication (9) Parkinson's disease Qualifiers: Dyskinesia presence: without dyskinesia Fluctuating manifestations: unspecified whether manifestations fluctuate Qualified Code(s): G20.A1 - Parkinson's disease without dyskinesia, without mention offluctuations (13) Fecal incontinence Qualifiers: Fecal incontinence type: full incontinence of feces Qualified Code(s): R15.9 - Full incontinence offeces (14) Urinary bladder incontinence Qualifiers: Urinary Incontinence type: functional incontinence Qualified Code(s): R39.81 - Functional urinary incontinence (17) Osteoporosis Qualifiers: Osteoporosis type: age-related Presence of current pathological fracture: without current pathological fracture Qualified Code(s): M81.0 - Age-related osteoporosis without current pathological fracture 03/08/25 1657 Cosigner Signature (if applicable): CC: Dr. Matt Chacon MD; Dr. Shon Lozada MD; Dr. Candelario Santana MD ~ [facility]07-17-2025 [facility]07-15-2025 Progress note Author Katie Bah [facility] Note Date/Time March 06, 2025 4:11 pm [facility] Medical Records Department [address] [place] [address] Progress Note 03/06/25 1150 MR#: [id number] Acct: [id number] Name: SHASHI OSWALD Rep #:[id number] : 1945 79 From: Katie Bah DO PCP: Dr. Candelario Santana MD Status:ADM I N Location: [place] [address] Subjective Subjective Afebrile VSS -mild systolic hypertension. Diastolics are always within goal. Orthostatics were mildly positive today. Maintaining appropriate oxygen saturation on RA Oral intake - FOOD 75 to 100% of most meals FLUIDS good Still incontinent of both urine and stool. Discussed with nursing - no problems that need addressed Reviewed the THERAPY notes Medication list reviewed. Shashi tells me that her pain is getting better and she was able to do therapy today with only a little increase in pain. She denies pain when she is sitting in the recliner at rest. She denies lightheadedness, cough, shortness of breath, chest pain, dysuria and calf pain. Objective Data Objective Data Vital Signs: Vital Signs Temp Pulse Resp BP Pulse Ox O2 Del Method 97.9 F 70 17 146/76 H 99 Room Air 03/06/25 06:00 03/06/25 10:14 03/06/25 09:22 03/06/25 10:14 03/06/25 09:22 03/06/25 09:22 Oxygen Delivery Method Room Air Weight: 136 lb 9.6 oz Body Mass Index (BMI) 25.1 Intake & Output: Intake and Output for Last 24 Hours 03/04/25 03/05/25 03/06/25 23:59 23:59 23:59 Intake Total 1870 / 1870 2120 / 2120 180 / 180 Output Total 2 / 2 4 / 4 Balance 1868 / 1868 211 / 211 180 / 180 Lab / Micro Data 03/05/25 05:12 03/05/25 05:12 Micro: Microbiology 02/23/25 11:40 Urine, Catheterized Urine Culture - Final Escherichia coli 02/22/25 13:45 Stool Stool Occult Blood (JEREMY) - Final Occult Blood Positive Physical Exam Const alert Constitutional Narrative: pleasant and appropriate. General Appearance: cooperative HEENT Mouth: dry mucous membranes Resp normal respiratory effort Resp Narrative: coarse crackles in the bases (mostly cleared after a few deep breaths), otherwise CTA. Effort and Inspection: Negative for tachypneic Cardio regular rate, regular rhythm and no gallops Cardio Narrative: no change in the systolic MM GI normal to inspection, nondistended, normoactive bowel sounds, soft to palpation and non-tender Extremity no calf tenderness Extremity Narrative: Still with edema of the left lower extremity but she always has her legs dependent when she is sitting in the recliner. No edema in the right ankle. Nopain with compression of the left calf. Venous ultrasound was negative for DVT last week. Skin Rashes: no rashes Wound Narrative: Incisions are intact and oscar are in place. No dehiscence. small amount of serous DC from the proximal incision. No osiris-incisional erythema. Assessment & Plan Assessment/Plan (1) Debility: (2) Intertrochanteric fracture of left femur: QUALIFIERS: Encounter type: initial encounter Fracture type: closed Fracture alignment: displaced Qualified Code(s): S72.142A - Displaced intertrochanteric fracture of left femur, initial encounter for closed fracture (3) History of open reduction and internal fixation (ORIF) procedure: (4) Hyponatremia: (5) Anemia: QUALIFIERS: Anemia type: unspecified type Qualified Code(s): D64.9 - Anemia, unspecified (6) Vitamin D deficiency: (7) Hypothyroidism: QUALIFIERS: Hypothyroidism type: acquired Qualified Code(s): E03.9 - Hypothyroidism, unspecified (8) Diabetes mellitus, type 2: QUALIFIERS: Diabetes mellitus complication status: with other specified complication Diabetes mellitus alf insulin use: 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 Qualified Code(s): E11.69 - Type 2 diabetes mellitus with other specified complication (9) Parkinson's disease: QUALIFIERS: Dyskinesia presence: without dyskinesia Fluctuating manifestations: unspecified whether manifestations fluctuate Qualified Code(s):G20.A1 - Parkinson's disease without dyskinesia, without mention of fluctuations (10) Cognitive dysfunction: (11) Occult blood in stools: (12) Right carotid bruit: (13) Fecal incontinence: QUALIFIERS: Fecal incontinence type: full incontinence of feces Qualified Code(s): R15.9 - Full incontinence of feces (14) Urinary bladder incontinence: QUALIFIERS: Urinary Incontinence type: functional incontinence Qualified Code(s): R39.81 - Functional urinary incontinence (15) Paroxysmal atrial fibrillation: (16) Orthostatic hypotension: PLAN: Plan 1. Continue therapy 2. Plan discharge for Wednesday to senior living 3. Hold Procardia if the systolic is less than 110 4. Continue metoprolol 25 mg twice daily in light of paroxysmal atrial fibrillation while on rehab. Plan event monitor at discharge. Encouraged her to increase her fluid intake today. Charges/Coding Visit Charges Inpatient E&M: 09459 Subs Hosp L1 03/06/25 1611 <Electronically signed by Katie Bah DO> Katie Bah DO Cosigner Signature (if applicable): CC: ~ Signed [facility] Work Phone: 1(110) 739-977407-15-2025 Progress note [facility] Medical Records Department [address] [place] [address] Progress Note 03/06/25 1150 MR#: [id number] Acct: [id number] Name: SHASHI OSWALD Rep #:[id number] : 1945 79 From: Katie Bah DO PCP: Dr. Candelario Santana MD Status:ADM I N Location: [place] [address] Subjective Subjective Afebrile VSS -mild systolic hypertension. Diastolics are always within goal. Orthostatics were mildly positive today. Maintaining appropriate oxygen saturation on RA Oral intake - FOOD 75 to 100% of most meals FLUIDS good Still incontinent of both urine and stool. Discussed with nursing - no problems that need addressed Reviewed the THERAPY notes Medication list reviewed. Shashi tells me that her pain is getting better and she was able to do therapy today with only a little increase in pain. She denies pain when she is sitting in the recliner at rest. She denies lightheadedness, cough, shortness of breath, chest pain, dysuria and calf pain. Objective Data Objective Data Vital Signs: Vital Signs Temp Pulse Resp BP Pulse Ox O2 Del Method 97.9 F 70 17 146/76 H 99 Room Air 03/06/25 06:00 03/06/25 10:14 03/06/25 09:22 03/06/25 10:14 03/06/25 09:22 03/06/25 09:22 Oxygen Delivery Method Room Air Weight: 136 lb 9.6 oz Body Mass Index (BMI) 25.1 Intake & Output: Intake and Output for Last 24 Hours 03/04/25 03/05/25 03/06/25 23:59 23:59 23:59 Intake Total 1870 / 1870 2120 / 2120 180 / 180 Output Total / Balance 1868 / 1868 2116 / 211 180 / 180 Lab / Micro Data 03/05/25 05:12 03/05/25 05:12 Micro: Microbiology 02/23/25 11:40 Urine, Catheterized Urine Culture - Final Escherichia coli 02/22/25 13:45 Stool Stool Occult Blood (JEREMY) - Final Occult Blood Positive Physical Exam Const alert Constitutional Narrative: pleasant and appropriate. General Appearance: cooperative HEENT Mouth: dry mucous membranes Resp normal respiratory effort Resp Narrative: coarse crackles in the bases (mostly cleared after a few deep breaths), otherwise CTA. Effort and Inspection: Negative for tachypneic Cardio regular rate, regular rhythm and no gallops Cardio Narrative: no change in the systolic MM GI normal to inspection, nondistended, normoactive bowel sounds, soft to palpation and non-tender Extremity no calf tenderness Extremity Narrative: Still with edema of the left lower extremity but she always has her legs dependent when she is sitting in the recliner. No edema in the right ankle. Nopain with compression of the left calf. Venous ultrasound was negative for DVT last week. Skin Rashes: no rashes Wound Narrative: Incisions are intact and oscar are in place. No dehiscence. small amount of serous DC from the proximal incision. No osiris-incisional erythema. Assessment & Plan Assessment/Plan (1) Debility: (2) Intertrochanteric fracture of left femur: QUALIFIERS: Encounter type: initial encounter Fracture type: closed Fracture alignment: displaced Qualified Code(s): S72.142A - Displaced intertrochanteric fracture of left femur, initial encounter for closed fracture (3) History of open reduction and internal fixation (ORIF) procedure: (4) Hyponatremia: (5) Anemia: QUALIFIERS: Anemia type: unspecified type Qualified Code(s): D64.9 - Anemia, unspecified (6) Vitamin D deficiency: (7) Hypothyroidism: QUALIFIERS: Hypothyroidism type: acquired Qualified Code(s): E03.9 - Hypothyroidism, unspecified (8) Diabetes mellitus, type 2: QUALIFIERS: Diabetes mellitus complication status: with other specified complication 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: 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 Qualified Code(s): E11.69 - Type 2 diabetes mellitus with other specified complication (9) Parkinson's disease: QUALIFIERS: Dyskinesia presence: without dyskinesia Fluctuating manifestations: unspecified whethermanifestations fluctuate Qualified Code(s):G20.A1 - Parkinson's disease without dyskinesia, withoutmention of fluctuations (10) Cognitive dysfunction: (11) Occult blood in stools: (12) Right carotid bruit: (13) Fecal incontinence: QUALIFIERS: Fecal incontinence type: full incontinence of feces Qualified Code(s): R15.9 - Full incontinence of feces (14) Urinary bladder incontinence: QUALIFIERS: Urinary Incontinence type: functional incontinence Qualified Code(s): R39.81 - Functional urinary incontinence (15) Paroxysmal atrial fibrillation: (16) Orthostatic hypotension: PLAN: Plan 1. Continue therapy 2. Plan discharge for Wednesday to senior living 3. Hold Procardia if the systolic is less than 110 4. Continue metoprolol 25 mg twice daily in light of paroxysmal atrial fibrillation while on rehab.Plan event monitor at discharge. Encouraged her to increase her fluid intake today. Charges/Coding Visit Charges Inpatient E&M: 43668 [facility] Hosp L1 03/06/25 1611 Katie Bah DO Cosigner Signature (if applicable): CC: ~ Signed [facility]07-14-2025 Progress note Author Katie Judyjaquan [facility] Note Date/Time March 05, 2025 2:59 pm [facility] Medical Records Department [address] [place] [address] Progress Note 03/05/25 1138 MR#: [id number] Acct: [id number] Name: NIKKIRosalinaSHASHI Rep #:[id number] : 1945 79 From: Katie Bah DO PCP: Dr. Candelario Santana MD Status:ADM I N Location: [place] [address] Subjective Subjective Shashi was seen on team rounds today. Her son Roman participated by phone and Vika was present in the room. All their questions were answered to their satisfaction. Afebrile VSS -blood pressure over the past 24 hours has ranged from 105/38 to 152/55. Heart rate has ranged from 62-73. Just recently started on Procardia XL 30 mg daily....has had a total of 3 doses. Maintaining appropriate oxygen saturation on RA Oral intake - FOOD good FLUIDS fair to good Discussed with nursing - no problems that need addressed Reviewed the THERAPY notes Medication list reviewed. All lab drawn this morning was personally reviewed. Hemoglobin is 9.5, up from 8.4 on 02/26/2025. Sodium is 134 and stable. The potassium is 4.1. The BUN is 17 and creatinine is stable at 0.5. Magnesium is 1.9 and calcium is within normal limits. Shashi's only complaint is pain in the Left leg.........mostly when she is up anddoing therapy. It is not keeping her up and night and she tells me that she is sleeping well. She denies lightheadedness, cephalgia, chest pain, shortness of breath, cough, nausea/vomiting/abdominal pain, dysuria and calf pain. She is currently getting acetaminophen 1 g every 8 hours and tramadol 25 mg in the a.m.and at bedtime for pain control. Objective Data Objective Data Vital Signs: Vital Signs Temp Pulse Resp BP Pulse Ox O2 Del Method 97.7 F L 63 16 130/62 H 98 Room Air 03/05/25 06:00 03/05/25 08:24 03/05/25 06:00 03/05/25 08:24 03/05/25 06:00 03/05/25 06:00 Oxygen Delivery Method Room Air Weight: 136 lb 9.6 oz Body Mass Index (BMI) 25.1 Intake & Output: Intake and Output for Last 24 Hours 03/03/25 03/04/25 03/05/25 23:59 23:59 23:59 Intake Total 850 / 850 1870 / 1870 990 / 990 Output Total 2 / 2 Balance 850 / 850 1868 / 1868 990 / 990 Lab / Micro Data 03/05/25 05:12 03/05/25 05:12 Labs: Laboratory Results - last 24 hr 03/05/25 05:12: Hgb 9.5 L, Hct 27.0 L, Sodium 134, Potassium 4.1, Chloride 102, Carbon Dioxide 21.2, Anion Gap 11, BUN 17, Creatinine 0.54 L, Estim Creat Clear Calc 50.99, Est GFR (MDRD) Non-Af 95, BUN/Creatinine Ratio 31.2 H, Glucose 90, Calcium 9.2, Magnesium 1.9 Micro: Microbiology 02/23/25 11:40 Urine, Catheterized Urine Culture - Final Escherichia coli 02/22/25 13:45 Stool Stool Occult Blood (JEREMY) - Final Occult Blood Positive Physical Exam Const alert Constitutional Narrative: pleasant and appropriate. General Appearance: cooperative Resp normal respiratory effort Resp Narrative: coarse crackles in the bases (mostly cleared after a few deep breaths), otherwise CTA. Effort and Inspection: Negative for tachypneic Cardio regular rate, regular rhythm and no gallops Cardio Narrative: no change in the systolic MM GI normal to inspection, nondistended, normoactive bowel sounds, soft to palpation and non-tender Extremity Extremity Narrative: Still with edema that is pitting in the left lower extremity. Patient does notelevate her legs when she is seated in a chair and so they are dependent most ofthe day. Venous ultrasound of the left lower extremity last week was negative for deep vein thrombosis. Only trace edema in the right ankle. Skin Rashes: no rashes Wound Narrative: Incisions are intact and oscar are in place. No dehiscence. small amount of serous DC from the proximal incision. No osiris-incisional erythema. Assessment & Plan Assessment/Plan (1) Debility: (2) Intertrochanteric fracture of left femur: QUALIFIERS: Encounter type: initial encounter Fracture type: closed Fracture alignment: displaced Qualified Code(s): S72.142A - Displaced intertrochanteric fracture of left femur, initial encounter for closed fracture (3) History of open reduction and internal fixation (ORIF) procedure: (4) Hyponatremia: (5) Anemia: QUALIFIERS: Anemia type: unspecified type Qualified Code(s): D64.9 - Anemia, unspecified (6) Vitamin D deficiency: (7) Hypothyroidism: QUALIFIERS: Hypothyroidism type: acquired Qualified Code(s): E03.9 - Hypothyroidism, unspecified (8) Diabetes mellitus, type 2: QUALIFIERS: Diabetes mellitus complication status: with other specified complication Diabetes mellitus alf insulin use: 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 Qualified Code(s): E11.69 - Type 2 diabetes mellitus with other specified complication (9) Parkinson's disease: QUALIFIERS: Dyskinesia presence: without dyskinesia Fluctuating manifestations: unspecified whether manifestations fluctuate Qualified Code(s):G20.A1 - Parkinson's disease without dyskinesia, without mention of fluctuations (10) Cognitive dysfunction: (11) Occult blood in stools: (12) Right carotid bruit: (13) Fecal incontinence: QUALIFIERS: Fecal incontinence type: full incontinence of feces Qualified Code(s): R15.9 - Full incontinence of feces (14) Urinary bladder incontinence: QUALIFIERS: Urinary Incontinence type: functional incontinence Qualified Code(s): R39.81 - Functional urinary incontinence (15) Paroxysmal atrial fibrillation: PLAN: since she has been on Metoprolol I have not detected any AF anytime I haveseen her. Will need a holtor monitor or event monitor at [place]. PLAN: Plan 1. Continue therapy 2. Increase the tramadol to 3 times daily at 7 AM, 2 PM and 9 PM. Continue acetaminophen and the arthritis compounded cream to the knee. 3. Continue to monitor the blood pressure. It seems to be improving with the addition of nicardipine to her drug regimen. 4. Plan is for senior living at discharge as Ash does not feel he can adequately care for her at home at this point. The patient agrees with this andis willing to go to a senior living facility. 5. Will need a TSH and T4 in 6 weeks. 6. Recommend follow-up with neurology for cognitive impairment. Charges/Coding Visit Charges Inpatient E&M: 95434 Subs Hosp L2 03/05/25 6794 <Electronically signed by Katie Bah DO> Katie Bah DO Cosigner Signature (if applicable): CC: ~ Signed [facility] Work Phone: 1([phone]) 988-314407-14-2025 Progress note Author Jo Vizcarra [facility] Note Date/Time March 05, 2025 1:25 pm [facility] Medical Records Department [address] [place] [address] Progress Note - Orthopedic 03/05/25 1318 MR#: [id number] Acct: [id number] Name: SHASHI OSWALD Rep #:[id number] : 1945 79 From: Jo HADLEY PCP: Dr. Candelario Santana MD Status:ADM I N Location: [place] [address] Subjective Subjective Postop 2 weeks status post left hip long gamma nail for IT plus subtrochanteric fracture. Patient was seen today in the rehab unit. Patient was working with physical therapy upon entry. Patient continues to do well with very minimal pain. Therapy reports that she is walking approximately 20 feet at a time. Oscar were removed last week. Patient says that she primarily has pain with positioning in bed. Denies any incision concerns. Patient denies any recent lightheadedness, fatigue, dizziness. She denies any recent transfusions. To recall when the patient was admitted she was given 2 units of packed red blood cells. Objective Data Objective Data Vital Signs: Vital Signs Temp Pulse Resp BP Pulse Ox O2 Del Method 97.7 F L 63 16 130/62 H 98 Room Air 03/05/25 06:00 03/05/25 08:24 03/05/25 06:00 03/05/25 08:24 03/05/25 06:00 03/05/25 06:00 Oxygen Delivery Method Room Air Weight: 136 lb 9.6 oz Body Mass Index (BMI) 25.1 Intake & Output: Intake and Output for Last 24 Hours 03/03/25 03/04/25 03/05/25 23:59 23:59 23:59 Intake Total 850 / 850 1870 / 1870 990 / 990 Output Total 2 / 2 Balance 850 / 850 1868 / 1868 990 / 990 Lab / Micro Data 03/05/25 05:12 03/05/25 05:12 Labs: Laboratory Results - last 24 hr 03/05/25 05:12: Hgb 9.5 L, Hct 27.0 L, Sodium 134, Potassium 4.1, Chloride 102, Carbon Dioxide 21.2, Anion Gap 11, BUN 17, Creatinine 0.54 L, Estim Creat Clear Calc 50.99, Est GFR (MDRD) Non-Af 95, BUN/Creatinine Ratio 31.2 H, Glucose 90, Calcium 9.2, Magnesium 1.9 Micro: Microbiology 02/23/25 11:40 Urine, Catheterized Urine Culture - Final Escherichia coli 02/22/25 13:45 Stool Stool Occult Blood (JEREMY) - Final Occult Blood Positive Physical Exam Narrative Distal neurovascular exam is intact in left lower extremity. Physical examination of the left hip shows well-healed and dried surgical incisions with no redness, swelling, discharge. No oscar. Patient has full range of motion of her bilateral ankles and knees. No significant edema. Const alert, oriented x3 and no apparent distress Assessment & Plan Assessment/Plan (1) Status post hip surgery: PLAN: Plan Postop 2 weeks left hip long gamma nail. Obtained and reviewed x-rays last week which show prosthesis in good position. Patient continues to work with therapy at the rehab unit. Patient unsure of when she will return home. Patient was prior living with her son. Patient will follow-up in the clinic for 6-week follow-up. Patient is in agreement. 03/05/25 1325 <Electronically signed by Jo HADLEY> Cosigner Signature (if applicable): CC: ~ Signed [facility] Work Phone: 1(740) 741-962907-14-2025 Progress note [facility] Medical Records Department [address] [place] [address] Progress Note 03/05/25 1138 MR#: [id number] Acct: [id number] Name: SHASHI OSWALD Rep #:[id number] : 1945 79 From: Katie Bah DO PCP: Dr. Candelario Santana MD Status:ADM I N Location: [place] [address] Subjective Subjective Shashi was seen on team rounds today. Her son Roman participated by phone and Vika was present in the room. All their questions were answered to their satisfaction. Afebrile VSS -blood pressure over the past 24 hours has ranged from 105/38 to 152/55. Heart rate has ranged from 62-73. Just recently started on Procardia XL 30 mg daily....has had a total of 3 doses. Maintaining appropriate oxygen saturation on RA Oral intake - FOOD good FLUIDS fair to good Discussed with nursing - no problems that need addressed Reviewed the THERAPY notes Medication list reviewed. All lab drawn this morning was personally reviewed. Hemoglobin is 9.5, up from 8.4 on 02/26/2025. Sodium is 134 and stable. The potassium is 4.1. The BUN is 17 and creatinine is stable at 0.5. Magnesium is 1.9 and calcium is within normal limits. Shashi's only complaint is pain in the Left leg.........mostly when she is up anddoing therapy. It is not keeping her up and night and she tells me that she is sleeping well. She denies lightheadedness, cephalgia, chest pain, shortness of breath, cough, nausea/vomiting/abdominal pain, dysuria and calf pain. She is currently getting acetaminophen 1 g every 8 hours and tramadol 25 mg in the a.m.and at bedtime for pain control. Objective Data Objective Data Vital Signs: Vital Signs Temp Pulse Resp BP Pulse Ox O2 Del Method 97.7 F L 63 16 130/62 H 98 Room Air 03/05/25 06:00 03/05/25 08:24 03/05/25 06:00 03/05/25 08:24 03/05/25 06:00 03/05/25 06:00 Oxygen Delivery Method Room Air Weight: 136 lb 9.6 oz Body Mass Index (BMI) 25.1 Intake & Output: Intake and Output for Last 24 Hours 03/03/25 03/04/25 03/05/25 23:59 23:59 23:59 Intake Total 850 / 850 1870 / 1870 990 / 990 Output Total 2 / 2 Balance 850 / 850 1868 / 1868 990 / 990 Lab / Micro Data 03/05/25 05:12 03/05/25 05:12 Labs: Laboratory Results - last 24 hr 03/05/25 05:12: Hgb 9.5 L, Hct 27.0 L, Sodium 134, Potassium 4.1, Chloride 102, Carbon Dioxide 21.2, Anion Gap 11, BUN 17, Creatinine 0.54 L, Estim Creat Clear Calc 50.99, Est GFR (MDRD) Non-Af 95, BUN/Creatinine Ratio 31.2 H, Glucose 90, Calcium 9.2, Magnesium 1.9 Micro: Microbiology 02/23/25 11:40 Urine, Catheterized Urine Culture - Final Escherichia coli 02/22/25 13:45 Stool Stool Occult Blood (JEREMY) - Final Occult Blood Positive Physical Exam Const alert Constitutional Narrative: pleasant and appropriate. General Appearance: cooperative Resp normal respiratory effort Resp Narrative: coarse crackles in the bases (mostly cleared after a few deep breaths), otherwise CTA. Effort and Inspection: Negative for tachypneic Cardio regular rate, regular rhythm and no gallops Cardio Narrative: no change in the systolic MM GI normal to inspection, nondistended, normoactive bowel sounds, soft to palpation and non-tender Extremity Extremity Narrative: Still with edema that is pitting in the left lower extremity. Patient does notelevate her legs whenshe is seated in a chair and so they are dependent most ofthe day. Venous ultrasound of the left lower extremity last week was negative for deep vein thrombosis. Only trace edema in the right ankle. Skin Rashes: no rashes Wound Narrative: Incisions are intact and oscar are in place. No dehiscence. small amount of serous DC from the proximal incision. No osiris-incisional erythema. Assessment & Plan Assessment/Plan (1) Debility: (2) Intertrochanteric fracture of left femur: QUALIFIERS: Encounter type: initial encounter Fracture type: closed Fracture alignment: displaced Qualified Code(s): S72.142A - Displaced intertrochanteric fracture of left femur, initial encounter for closed fracture (3) History of open reduction and internal fixation (ORIF) procedure: (4) Hyponatremia: (5) Anemia: QUALIFIERS: Anemia type: unspecified type Qualified Code(s): D64.9 - Anemia, unspecified (6) Vitamin D deficiency: (7) Hypothyroidism: QUALIFIERS: Hypothyroidism type: acquired Qualified Code(s): E03.9 - Hypothyroidism, unspecified (8) Diabetes mellitus, type 2: QUALIFIERS: Diabetes mellitus complication status: with other specified complication 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: 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 Qualified Code(s): E11.69 - Type 2 diabetes mellitus with other specified complication (9) Parkinson's disease: QUALIFIERS: Dyskinesia presence: without dyskinesia Fluctuating manifestations: unspecified whethermanifestations fluctuate Qualified Code(s):G20.A1 - Parkinson's disease without dyskinesia, withoutmention of fluctuations (10) Cognitive dysfunction: (11) Occult blood in stools: (12) Right carotid bruit: (13) Fecal incontinence: QUALIFIERS: Fecal incontinence type: full incontinence of feces Qualified Code(s): R15.9 - Full incontinence of feces (14) Urinary bladder incontinence: QUALIFIERS: Urinary Incontinence type: functional incontinence Qualified Code(s): R39.81 - Functional urinary incontinence (15) Paroxysmal atrial fibrillation: PLAN: since she has been on Metoprolol I have not detected any AF anytime I haveseen her. Will needa holtor monitor or event monitor at [place]. PLAN: Plan 1. Continue therapy 2. Increase the tramadol to 3 times daily at 7 AM, 2 PM and 9 PM. Continue acetaminophen and the arthritis compounded cream to the knee. 3. Continue to monitor the blood pressure. It seems to be improving with the addition of nicardipine to her drug regimen. 4. Plan is for senior living at discharge as Ash does not feel he can adequately care for her athome at this point. The patient agrees with this andis willing to go to a senior living facility. 5. Will need a TSH and T4 in 6 weeks. 6. Recommend follow-up with neurology for cognitive impairment. Charges/Coding Visit Charges Inpatient E&M: 12014 Subs Hosp L2 03/05/25 1934 Katie DíazSimona Judyjaquan DO Cosigner Signature (if applicable): CC: ~ Signed [facility]07-14-2025 Progress note [facility] Medical Records Department [address] [place] [address] Progress Note - Orthopedic 03/05/25 1318 MR#: [id number] Acct: [id number] Name: SHASHI OSWALD Rep #:[id number] : 1945 79 From: Jo HADLEY PCP: Dr. Candelario Santana MD Status:ADM I N Location: [place] [address] Subjective Subjective Postop 2 weeks status post left hip long gamma nail for IT plus subtrochanteric fracture. Patient was seen today in the rehab unit. Patient was working with physical therapy upon entry. Patient continues to do well with very minimal pain. Therapy reports that she is walking approximately 20 feet gordon time. Oscar were removed last week. Patient says that she primarily has pain with positioning in bed. Denies any incision concerns. Patient denies any recent lightheadedness, fatigue, dizziness. She denies any recent transfusions. To recall when the patient was admitted she was given 2 units ofpacked red blood cells. Objective Data Objective Data Vital Signs: Vital Signs Temp Pulse Resp BP Pulse Ox O2 Del Method 97.7 F L 63 16 130/62 H 98 Room Air 03/05/25 06:00 03/05/25 08:24 03/05/25 06:00 03/05/25 08:24 03/05/25 06:00 03/05/25 06:00 Oxygen Delivery Method Room Air Weight: 136 lb 9.6 oz Body Mass Index (BMI) 25.1 Intake & Output: Intake and Output for Last 24 Hours 03/03/25 03/04/25 03/05/25 23:59 23:59 23:59 Intake Total 850 / 850 1870 / 1870 990 / 990 Output Total 2 / 2 Balance 850 / 850 1868 / 1868 990 / 990 Lab / Micro Data 03/05/25 05:12 03/05/25 05:12 Labs: Laboratory Results - last 24 hr 03/05/25 05:12: Hgb 9.5 L, Hct 27.0 L, Sodium 134, Potassium 4.1, Chloride 102, Carbon Dioxide 21.2, Anion Gap 11, BUN 17, Creatinine 0.54 L, Estim Creat Clear Calc 50.99, Est GFR (MDRD) Non-Af 95, BUN/Creatinine Ratio 31.2 H, Glucose 90, Calcium 9.2, Magnesium 1.9 Micro: Microbiology 02/23/25 11:40 Urine, Catheterized Urine Culture - Final Escherichia coli 02/22/25 13:45 Stool Stool Occult Blood (JEREMY) - Final Occult Blood Positive Physical Exam Narrative Distal neurovascular exam is intact in left lower extremity. Physical examination of the left hip shows well-healed and dried surgical incisions with no redness, swelling, discharge. No oscar. Patient has full range of motion of her bilateral ankles and knees. No significant edema. Const alert, oriented x3 and no apparent distress Assessment & Plan Assessment/Plan (1) Status post hip surgery: PLAN: Plan Postop 2 weeks left hip long gamma nail. Obtained and reviewed x-rays last week which show prosthesis in good position. Patient continues to work with therapy at the rehab unit. Patient unsure of when she will return home. Patient was prior living with her son. Patient will follow-up in the clinic for 6-week follow-up. Patient is in agreement. 03/05/25 1325 Cosigner Signature (if applicable): CC: ~ Signed [facility]07-11-2025 Radiology Diagnostic study note [facility] Imaging Services [address] [place], [place] [address] Femur Min 2 Views MR#: [id number] Acct: [id number] Name: SHASHI OSWALD Rep #: [id number] : 1945 F 79 From: Nicholas Hope MD PCP: Dr. Candelario Santana MD Status: ADM I N Study:Femur Min 2 Views Date of Exam: Exam# [id number] Ordering Dr: Ronal Chacon MD PROCEDURE: FEMUR MIN 2 VIEWS 03/02/2025 REASON FOR EXAM: STATUS POST LONG GAMMA NAIL TECHNIQUE: FEMUR MIN 2 VIEWS COMPARISON: None. FINDINGS: Left femoral internal fixation spanning a left proximal femoral fracture. No evidence of acute complication. RAD/Femur Min 2 Views IMPRESSION: Intact left femoral internal fixation. Reading Location: [id number] CC: Dr. Matt Chacon MD; Dr. Candelario Santana MD ~ Burrer Operator: Signed [facility]07-11-2025 Radiology Diagnostic study note [facility] Imaging Services [address] [place], [place] [address] Pelvis 1 or 2 Views MR#: [id number] Acct: [id number] Name: SHASHI OSWALD Rep #: [id number] : 1945 F 79 From: Nicholas Hope MD PCP: Dr. Candelario Santana MD Status: ADM I N Study:Pelvis 1 or 2 Views Date of Exam: 03/02/25 Exam# [id number] Ordering Dr: Ronal Chacon MD PROCEDURE: PELVIS 1 OR 2 VIEWS 03/02/2025 REASON FOR EXAM: STATUS POST GAMMA NAIL TECHNIQUE: PELVIS 1 OR 2 VIEWS COMPARISON: 03/02/2025. FINDINGS: No evidence of acute fracture or dislocation. Left femoral internal fixation. There are degenerative changes of the bilateral hips. Partially visualized degenerative changes of the spine. RAD/Pelvis 1 or 2 Views IMPRESSION: Left femoral internal fixation. Reading Location: [id number] CC: Dr. Matt Chacon MD; Dr. Candelario Santana MD ~ Burrer Operator: Signed [facility]07-10-2025 Progress note Author Katie Bah [facility] Note Date/Time March 01, 2025 5:02 pm [facility] Medical Records Department [address] [place] [address] Progress Note 03/01/25 1033 MR#: [id number] Acct: [id number] Name: SHASHI OSWALD Rep #:[id number] : 1945 79 From: Katie Bah DO PCP: Dr. Candelario Santana MD Status:ADM I N Location: [place] [address] Subjective Subjective Afebrile. The blood pressure over the past 24 hours has ranged from 136/44 to 185/65. Blood pressure this a.m. was 132/44. More often than not the systolic is elevated. Heart rate has ranged from 64-72. Food and fluid intake are good. Having regular bowel movements. Left leg buckling with therapy today. Blood sugars are well-controlled on metformin 750 mg daily with no hypoglycemia. She denies knee pain today........we have been using arthritis cream on the kneeand she did not complain today. She denies shortness of breath, cough, chest pain, lightheadedness, nausea/vomiting/abdominal pain, dysuria and calf tenderness. Objective Data Objective Data Vital Signs: Vital Signs Temp Pulse Resp BP Pulse Ox O2 Del Method 98.6 F 64 17 132/44 H 98 Room Air 03/01/25 06:00 03/01/25 09:03 03/01/25 06:00 03/01/25 09:03 03/01/25 06:00 03/01/25 06:00 Oxygen Delivery Method Room Air Weight: 136 lb 9.6 oz Body Mass Index (BMI) 25.1 Intake & Output: Intake and Output for Last 24 Hours 02/27/25 02/28/25 03/01/25 23:59 23:59 23:59 Intake Total 1460 / 1460 1880 / 1880 440 / 440 Output Total 100 / 100 Balance 1460 / 1460 1780 / 1780 440 / 440 Lab / Micro Data 02/26/25 05:21 02/26/25 05:21 Labs: Laboratory Results - last 24 hr 03/01/25 06:39: POC Glucose 115 H Micro: Microbiology 02/23/25 11:40 Urine, Catheterized Urine Culture - Final Escherichia coli 02/22/25 13:45 Stool Stool Occult Blood (JEREMY) - Final Occult Blood Positive Physical Exam Const alert Constitutional Narrative: pleasant and appropriate. General Appearance: cooperative Resp normal respiratory effort Resp Narrative: coarse crackles in the bases (mostly cleared after a few deep breaths), otherwise CTA. Effort and Inspection: Negative for tachypneic Cardio regular rate, regular rhythm and no gallops Cardio Narrative: no change in the systolic MM GI normal to inspection, nondistended, normoactive bowel sounds, soft to palpation and non-tender Extremity Extremity Narrative: the edema in the LLE is increased today. She has pitting of the posterior thighand the ankle in increased in size and is pitting. Skin Rashes: no rashes Wound Narrative: Incisions are intact and oscar are in place. No dehiscence. small amount of serous DC from the proximal incision. No osiris-incisional erythema. Assessment & Plan Assessment/Plan (1) Debility: (2) Intertrochanteric fracture of left femur: QUALIFIERS: Encounter type: initial encounter Fracture type: closed Fracture alignment: displaced Qualified Code(s): S72.142A - Displaced intertrochanteric fracture of left femur, initial encounter for closed fracture (3) History of open reduction and internal fixation (ORIF) procedure: (4) Hyponatremia: (5) Anemia: QUALIFIERS: Anemia type: unspecified type Qualified Code(s): D64.9 - Anemia, unspecified (6) Vitamin D deficiency: (7) Hypothyroidism: QUALIFIERS: Hypothyroidism type: acquired Qualified Code(s): E03.9 - Hypothyroidism, unspecified (8) Diabetes mellitus, type 2: QUALIFIERS: Diabetes mellitus complication status: with other specified complication 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 Qualified Code(s): E11.69 - Type 2 diabetes mellitus with other specified complication (9) Parkinson's disease: QUALIFIERS: Dyskinesia presence: without dyskinesia Fluctuating manifestations: unspecified whether manifestations fluctuate Qualified Code(s):G20.A1 - Parkinson's disease without dyskinesia, without mention of fluctuations (10) Cognitive dysfunction: (11) Occult blood in stools: (12) Right carotid bruit: (13) Fecal incontinence: QUALIFIERS: Fecal incontinence type: full incontinence of feces Qualified Code(s): R15.9 - Full incontinence of feces (14) Urinary bladder incontinence: QUALIFIERS: Urinary Incontinence type: functional incontinence Qualified Code(s): R39.81 - Functional urinary incontinence (15) Paroxysmal atrial fibrillation: PLAN: Plan 1. Continue therapy 2. Increase metoprolol to 25 mg twice daily 3. Change Accu-Cheks to as needed. Continue metformin 750 mg daily. 4. Check a BMP, magnesium and HH on Wednesday 5. Venous ultrasound of the left lower extremity today. Charges/Coding Visit Charges Inpatient E&M: 75588 Subs Hosp L1 03/01/25 1143 <Electronically signed by Katie Bah DO> Katie Baez Signature (if applicable): CC: ~ Signed ADDENDUM by Dr. Katie Bah DO on 03/01/25 at 1702 Addendum Venous ultrasound of the left lower extremity shows deep veins to be patent and compressible segmentally. 03/01/25 1702 <Electronically signed by Katie partida DO> Date _ Katie Bah Signature (if applicable): Date cc: ~* Signed [facility] Work Phone: 1(384) 988-256707-10-2025 Progress note [facility] Medical Records Department [address] [address] Progress Note 03/01/25 1033 MR#: [id number] Acct: [id number] Name: SHASHI OSWALD Rep #:[id number] : 1945 79 From: Katie Charity Olvin PCP: Dr. Candelario Santana MD Status:ADM I N Location: [place] [address] Subjective Subjective Afebrile. The blood pressure over the past 24 hours has ranged from 136/44 to 185/65. Blood pressure this a.m. was 132/44. More often than not the systolic is elevated. Heart rate has ranged from 64-72. Food and fluid intake are good. Having regular bowel movements. Left leg buckling with therapy today. Blood sugars are well-controlled on metformin 750 mg daily with no hypoglycemia. She denies knee pain today........we have been using arthritis cream on the kneeand she did not complain today. She denies shortness of breath, cough, chest pain, lightheadedness, nausea/vomiting/abdominal pain, dysuria and calf tenderness. Objective Data Objective Data Vital Signs: Vital Signs Temp Pulse Resp BP Pulse Ox O2 Del Method 98.6 F 64 17 132/44 H 98 Room Air 03/01/25 06:00 03/01/25 09:03 03/01/25 06:00 03/01/25 09:03 03/01/25 06:00 03/01/25 06:00 Oxygen Delivery Method Room Air Weight: 136 lb 9.6 oz Body Mass Index (BMI) 25.1 Intake & Output: Intake and Output for Last 24 Hours 02/27/25 02/28/25 03/01/25 23:59 23:59 23:59 Intake Total 1460 / 1460 1880 / 1880 440 / 440 Output Total 100 / 100 Balance 1460 / 1460 1780 / 1780 440 / 440 Lab / Micro Data 02/26/25 05:21 02/26/25 05:21 Labs: Laboratory Results - last 24 hr 03/01/25 06:39: POC Glucose 115 H Micro: Microbiology 02/23/25 11:40 Urine, Catheterized Urine Culture - Final Escherichia coli 02/22/25 13:45 Stool Stool Occult Blood (JEREMY) - Final Occult Blood Positive Physical Exam Const alert Constitutional Narrative: pleasant and appropriate. General Appearance: cooperative Resp normal respiratory effort Resp Narrative: coarse crackles in the bases (mostly cleared after a few deep breaths), otherwise CTA. Effort and Inspection: Negative for tachypneic Cardio regular rate, regular rhythm and no gallops Cardio Narrative: no change in the systolic MM GI normal to inspection, nondistended, normoactive bowel sounds, soft to palpation and non-tender Extremity Extremity Narrative: the edema in the LLE is increased today. She has pitting of the posterior thighand the ankle in increased in size and is pitting. Skin Rashes: no rashes Wound Narrative: Incisions are intact and oscar are in place. No dehiscence. small amount of serous DC from the proximal incision. No osiris-incisional erythema. Assessment & Plan Assessment/Plan (1) Debility: (2) Intertrochanteric fracture of left femur: QUALIFIERS: Encounter type: initial encounter Fracture type: closed Fracture alignment: displaced Qualified Code(s): S72.142A - Displaced intertrochanteric fracture of left femur, initial encounter for closed fracture (3) History of open reduction and internal fixation (ORIF) procedure: (4) Hyponatremia: (5) Anemia: QUALIFIERS: Anemia type: unspecified type Qualified Code(s): D64.9 - Anemia, unspecified (6) Vitamin D deficiency: (7) Hypothyroidism: QUALIFIERS: Hypothyroidism type: acquired Qualified Code(s): E03.9 - Hypothyroidism, unspecified (8) Diabetes mellitus, type 2: QUALIFIERS: Diabetes mellitus complication status: with other specified complication 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 Qualified Code(s): E11.69 - Type 2 diabetes mellitus with other specified complication (9) Parkinson's disease: QUALIFIERS: Dyskinesia presence: without dyskinesia Fluctuating manifestations: unspecified whethermanifestations fluctuate Qualified Code(s):G20.A1 - Parkinson's disease without dyskinesia, withoutmention of fluctuations (10) Cognitive dysfunction: (11) Occult blood in stools: (12) Right carotid bruit: (13) Fecal incontinence: QUALIFIERS: Fecal incontinence type: full incontinence of feces Qualified Code(s): R15.9 - Full incontinence of feces (14) Urinary bladder incontinence: QUALIFIERS: Urinary Incontinence type: functional incontinence Qualified Code(s): R39.81 - Functional urinary incontinence (15) Paroxysmal atrial fibrillation: PLAN: Plan 1. Continue therapy 2. Increase metoprolol to 25 mg twice daily 3. Change Accu-Cheks to as needed. Continue metformin 750 mg daily. 4. Check a BMP, magnesium and HH on Wednesday 5. Venous ultrasound of the left lower extremity today. Charges/Coding Visit Charges Inpatient E&M: 88184 Subs Hosp L1 03/01/25 1143 Katie Bah DO Cosigner Signature (if applicable): CC: ~ Signed ADDENDUM by Dr. Katie Bah DO on 03/01/25 at 1702 Addendum Venous ultrasound of the left lower extremity shows deep veins to be patent and compressible segmentally. 03/01/25 1702 ti DO> Date _ Katie Bah DO Cosigner Signature (if applicable): Date cc: ~* Signed [facility]07-09-2025 Progress note Author Katie Bah [facility] Note Date/Time February 28, 2025 11:36 am [facility] Medical Records Department [address] [place] [address] Progress Note 02/28/25911 MR#: [id number] Acct: [id number] Name: SHASHI OSWALD Rep #:[id number] : 1945 79 From: Katie Bah DO PCP: Dr. Candelario Santana MD Status:ADM I N Location: [place] [address] Subjective Subjective Finished 5 days of Macrobid for acute cystitis Afebrile Heart rate is within normal limits Diastolic blood pressure is always within goal however the systolic is sometimeselevated and over the past 24 hours has ranged from 111-166. Maintaining appropriate oxygen saturation on room air Good appetite. Fair to good fluid intake. Having regular bowel movements. Blood sugars are very well-controlled with no hypoglycemia. Currently on Glucophage 750 mg once daily in the AM. The medication list was reviewed. Therapy notes were reviewed. Only complaint is left knee pain and this has been a persistent complaint. Denies chest pain, palpitations, shortness of breath, cough, calf pain, dysuria. I reviewed the results of the echocardiogram. EF is 60%. No wall motion abnormalities. Normal right ventricular size and function. No atrial enlargement. +1 MR and mild TR. Pulmonary artery pressure was estimated at 32. Trileaflet aortic valve with some mild valve calcification but no aortic stenosis. Objective Data Objective Data Vital Signs: Vital Signs Temp Pulse Resp BP Pulse Ox O2 Del Method 97.6 F L 69 17 139/55 H 97 Room Air 02/28/25 05:10 02/28/25 07:58 02/28/25 05:10 02/28/25 05:10 02/28/25 05:10 02/28/25 05:10 Oxygen Delivery Method Room Air Weight: 136 lb 9.6 oz Body Mass Index (BMI) 25.1 Intake & Output: Intake and Output for Last 24 Hours 02/26/25 02/27/25 02/28/25 23:59 23:59 23:59 Intake Total 1556 / 1556 1460 / 1460 640 / 640 Output Total 100 / 100 Balance 1456 / 1456 1460 / 1460 640 / 640 Lab / Micro Data 02/26/25 05:21 02/26/25 05:21 Labs: Laboratory Results - last 24 hr 02/27/25 17:21: POC Glucose 112 H 02/28/25 06:32: POC Glucose 106 Micro: Microbiology 02/23/25 11:40 Urine, Catheterized Urine Culture - Final Escherichia coli 02/22/25 13:45 Stool Stool Occult Blood (JEREMY) - Final Occult Blood Positive Radiography Diagnostic Testing: Radiology Impression Echocardiogram 02/26/25 12:00 Interpretation Summary Normal LV size. Left ventricular systolic function is normal. The left ventricular ejection fraction is 60 %. Mild focal aortic valve calcification. Ordering Physician: Katie Bah Referring Physician: Candelario Santana Chi Performed By: Patricia Mckeon RDCS Physical Exam Const alert Constitutional Narrative: Confused. Pleasant. Sitting in the recliner at the bedside and appears comfortable. General Appearance: cooperative Resp clear to auscultation bilaterally Resp Narrative: CTA anterior. No conversational dyspnea. Not coughing. NO wheezing. Effort and Inspection: Negative for tachypneic Cardio regular rate, regular rhythm and no gallops Extremity Extremity Narrative: She has pitting edema of the L ankle. No edema on the R. No calf pain. The left knee is a little swollen but, no redness and no DC from the distal thigh incision. No significant pain in the quadriceps. No calf tenderness. Skin Rashes: no rashes Psych affect normal Attitude: No agitated Activity / Motor Behavior: Negative for restless Assessment & Plan Assessment/Plan (1) Debility: (2) Intertrochanteric fracture of left femur: QUALIFIERS: Encounter type: initial encounter Fracture type: closed Fracture alignment: displaced Qualified Code(s): S72.142A - Displaced intertrochanteric fracture of left femur, initial encounter for closed fracture (3) History of open reduction and internal fixation (ORIF) procedure: (4) Hyponatremia: (5) Anemia: QUALIFIERS: Anemia type: unspecified type Qualified Code(s): D64.9 - Anemia, unspecified (6) Vitamin D deficiency: (7) Hypothyroidism: QUALIFIERS: Hypothyroidism type: acquired Qualified Code(s): E03.9 - Hypothyroidism, unspecified (8) H/O thyroidectomy: (9) Diabetes mellitus, type 2: QUALIFIERS: Diabetes mellitus complication status: with other specified complication 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 Qualified Code(s): E11.69 - Type 2 diabetes mellitus with other specified complication (10) Parkinson's disease: QUALIFIERS: Dyskinesia presence: without dyskinesia Fluctuating manifestations: unspecified whether manifestations fluctuate Qualified Code(s):G20.A1 - Parkinson's disease without dyskinesia, without mention of fluctuations (11) Cognitive dysfunction: (12) Constipation: QUALIFIERS: Constipation type: unspecified constipation type Qualified Code(s): K59.00 - Constipation, unspecified (13) Occult blood in stools: (14) History of hemorrhoids: (15) Murmur, cardiac: (16) Hyperlipemia: QUALIFIERS: Hyperlipidemia type: unspecified Qualified Code(s): E78.5 - Hyperlipidemia, unspecified (17) Right carotid bruit: (18) Fecal incontinence: QUALIFIERS: Fecal incontinence type: full incontinence of feces Qualified Code(s): R15.9 - Full incontinence of feces (19) Urinary bladder incontinence: QUALIFIERS: Urinary Incontinence type: functional incontinence Qualified Code(s): R39.81 - Functional urinary incontinence (20) Paroxysmal atrial fibrillation: PLAN: Plan 1. Continue therapy 2. Change the tramadol to 25 mg twice daily at 7 AM and 9 PM. 3. Continue Glucophage at 750 mg daily 4. Start arthritis compounded cream 3 times daily to the left knee for local pain control. 5. Systolics are mildly increased but the diastolic is always within goal. Landon been on metoprolol 12.5 mg twice daily since February 23 and this was started because of paroxysmal atrial fibrillation. She has been in normal sinus rhythm every time I have checked her since then. Change the dose to 25 mg BID and continue to monitor the HR and BP. would like to see the systolic consistently < 140. She has had documented AF while on rehab. Has had no recurrence since last Wednesday that I am aware of. Has been in a regular rhythm every time I have examined her since last Wednesday. Consider a holtor as OP. Charges/Coding Visit Charges Inpatient E&M: 05280 Subs Hosp L1 02/28/25 1136 <Electronically signed by Katie Bah DO> Katie Bah DO Cosigner Signature (if applicable): CC: ~ Signed [facility] Work Phone: 1(727) 428-137607-09-2025 Progress note [facility] Medical Records Department [address] [place] [address] Progress Note 02/28/25 0912 MR#: [id number] Acct: [id number] Name: SHASHI OSWALD Rep #:[id number] : 1945 79 From: Katie Bah DO PCP: Dr. Candelario Santana MD Status:ADM I N Location: [place] [address] Subjective Subjective Finished 5 days of Macrobid for acute cystitis Afebrile Heart rate is within normal limits Diastolic blood pressure is always within goal however the systolic is sometimeselevated and over the past 24 hours has ranged from 111-166. Maintaining appropriate oxygen saturation on room air Good appetite. Fair to good fluid intake. Having regular bowel movements. Blood sugars are very well-controlled with no hypoglycemia. Currently on Glucophage 750 mg once daily in the AM. The medication list was reviewed. Therapy notes were reviewed. Only complaint is left knee pain and this has been a persistent complaint. Denies chest pain, palpitations, shortness of breath, cough, calf pain, dysuria. I reviewed the results of the echocardiogram. EF is 60%. No wall motion abnormalities. Normal rightventricular size and function. No atrial enlargement. +1 MR and mild TR. Pulmonary artery pressure was estimated at 32. Trileaflet aortic valve with some mild valve calcification but no aortic stenosis. Objective Data Objective Data Vital Signs: Vital Signs Temp Pulse Resp BP Pulse Ox O2 Del Method 97.6 F L 69 17 139/55 H 97 Room Air 02/28/25 05:10 02/28/25 07:58 02/28/25 05:10 02/28/25 05:10 02/28/25 05:10 02/28/25 05:10 Oxygen Delivery Method Room Air Weight: 136 lb 9.6 oz Body Mass Index (BMI) 25.1 Intake & Output: Intake and Output for Last 24 Hours 02/26/25 02/27/25 02/28/25 23:59 23:59 23:59 Intake Total 1556 / 1556 1460 / 1460 640 / 640 Output Total 100 / 100 Balance 1456 / 1456 1460 / 1460 640 / 640 Lab / Micro Data 02/26/25 05:21 02/26/25 05:21 Labs: Laboratory Results - last 24 hr 02/27/25 17:21: POC Glucose 112 H 02/28/25 06:32: POC Glucose 106 Micro: Microbiology 02/23/25 11:40 Urine, Catheterized Urine Culture - Final Escherichia coli 02/22/25 13:45 Stool Stool Occult Blood (JEREMY) - Final Occult Blood Positive Radiography Diagnostic Testing: Radiology Impression Echocardiogram 02/26/25 12:00 Interpretation Summary Normal LV size. Left ventricular systolic function is normal. The left ventricular ejection fraction is 60 %. Mild focal aortic valve calcification. Ordering Physician: Katie Bah Referring Physician: Candelario Santana Chi Performed By: Patricia Mckeon RDCS Physical Exam Const alert Constitutional Narrative: Confused. Pleasant. Sitting in the recliner at the bedside and appears comfortable. General Appearance: cooperative Resp clear to auscultation bilaterally Resp Narrative: CTA anterior. No conversational dyspnea. Not coughing. NO wheezing. Effort and Inspection: Negative for tachypneic Cardio regular rate, regular rhythm and no gallops Extremity Extremity Narrative: She has pitting edema of the L ankle. No edema on the R. No calf pain. The left knee is a little swollen but, no redness and no DC from the distal thigh incision. No significant pain in the quadriceps. No calf tenderness. Skin Rashes: no rashes Psych affect normal Attitude: No agitated Activity / Motor Behavior: Negative for restless Assessment & Plan Assessment/Plan (1) Debility: (2) Intertrochanteric fracture of left femur: QUALIFIERS: Encounter type: initial encounter Fracture type: closed Fracture alignment: displaced Qualified Code(s): S72.142A - Displaced intertrochanteric fracture of left femur, initial encounter for closed fracture (3) History of open reduction and internal fixation (ORIF) procedure: (4) Hyponatremia: (5) Anemia: QUALIFIERS: Anemia type: unspecified type Qualified Code(s): D64.9 - Anemia, unspecified (6) Vitamin D deficiency: (7) Hypothyroidism: QUALIFIERS: Hypothyroidism type: acquired Qualified Code(s): E03.9 - Hypothyroidism, unspecified (8) H/O thyroidectomy: (9) Diabetes mellitus, type 2: QUALIFIERS: Diabetes mellitus complication status: with other specified complication 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 Qualified Code(s): E11.69 - Type 2 diabetes mellitus with other specified complication (10) Parkinson's disease: QUALIFIERS: Dyskinesia presence: without dyskinesia Fluctuating manifestations: unspecified whethermanifestations fluctuate Qualified Code(s):G20.A1 - Parkinson's disease without dyskinesia, withoutmention of fluctuations (11) Cognitive dysfunction: (12) Constipation: QUALIFIERS: Constipation type: unspecified constipation type Qualified Code(s): K59.00 - Constipation, unspecified (13) Occult blood in stools: (14) History of hemorrhoids: (15) Murmur, cardiac: (16) Hyperlipemia: QUALIFIERS: Hyperlipidemia type: unspecified Qualified Code(s): E78.5 - Hyperlipidemia, unspecified (17) Right carotid bruit: (18) Fecal incontinence: QUALIFIERS: Fecal incontinence type: full incontinence of feces Qualified Code(s): R15.9 - Full incontinence of feces (19) Urinary bladder incontinence: QUALIFIERS: Urinary Incontinence type: functional incontinence Qualified Code(s): R39.81 - Functional urinary incontinence (20) Paroxysmal atrial fibrillation: PLAN: Plan 1. Continue therapy 2. Change the tramadol to 25 mg twice daily at 7 AM and 9 PM. 3. Continue Glucophage at 750 mg daily 4. Start arthritis compounded cream 3 times daily to the left knee for local pain control. 5. Systolics are mildly increased but the diastolic is always within goal. Landon been on metoprolol 12.5 mg twice daily since February 23 and this was started because of paroxysmal atrial fibrillation. She has been in normal sinus rhythm every time I have checked her since then. Change the dose to 25 mg BID and continue to monitor the HR and BP. would like to see the systolic consistently < 140. She has had documented AF while on rehab. Has had no recurrence since last Wednesday that I am aware of. Has been in a regular rhythm every time I have examined her since last Wednesday. Consider a holtor as OP. Charges/Coding Visit Charges Inpatient E&M: 99031 Subs Hosp L1 02/28/25 1136 Katie Bravoigner Signature (if applicable): CC: ~ Signed [facility]07-07-2025 Progress note Author Katie Bah [facility] Note Date/Time February 26, 2025 3:37p m [facility] Medical Records Department [address] [place] [address] Progress Note 02/26/25 0857 MR#: [id number] Acct: [id number] Name: SHASHI OSWALD Rep #:[id number] : 1945 79 From: Katie Nash Judyjaquan DELEON PCP: Dr. Candelario Santana MD Status:ADM I N Location: [place] [address] Subjective Subjective Shashi was seen on team rounds today. Her son Ash was in attendance in the room. Afebrile VSS -blood pressure over the past 2 days has ranged from 112/54 to 153/47. Heart rate has ranged from 61-71. Maintaining appropriate oxygen saturation on RA Oral intake - FOOD good FLUIDS fair most days Discussed with nursing - no problems that need addressed. Sleeping well at night. Reviewed the THERAPY notes Medication list reviewed. All lab from this morning was personally reviewed. Hemoglobin is stable at 8.4. Sodium is up to 133 and the potassium is 3.9. BUN is 12 with a creatinine of 0.52 which is stable. Calcium is normal. B12 is normal at 366. The urine culture grew E. coli which is sensitive to nitrofurantoin. Stool is Hemoccult positive Shashi denies dizziness, lightheadedness, cephalgia, chest pain, shortness of breath, nausea/vomiting/abdominal pain, dysuria and calf pain. She does have continued to have pain in the left thigh above the knee. Shashi does not feel she will be able to go right home from rehab and she is agreeable to going to SNF if needed). Ash is in agreement with this as well. Objective Data Objective Data Vital Signs: Vital Signs Temp Pulse Resp BP Pulse Ox O2 Del Method 98.4 F 63 15 147/55 H 94 Room Air 02/26/25 06:00 02/26/25 06:00 02/26/25 06:00 02/26/25 06:00 02/26/25 06:00 02/26/25 06:00 Oxygen Delivery Method Room Air Weight: 139 lb 1.787 oz Body Mass Index (BMI) 25.4 Intake & Output: Intake and Output for Last 24 Hours 02/24/25 02/25/25 02/26/25 23:59 23:59 23:59 Intake Total 1095 / 1095 870 / 870 220 / 220 Balance 1095 / 1095 870 / 870 220 / 220 Lab / Micro Data 02/26/25 05:21 02/26/25 05:21 Labs: Laboratory Results - last 24 hr 02/25/25 11:28: POC Glucose 214 H 02/25/25 16:54: POC Glucose 121 H 02/25/25 22:35: POC Glucose 184 H 02/26/25 05:21: Hgb 8.4 L, Hct 24.4 L, Sodium 133, Potassium 3.9, Chloride 101, Carbon Dioxide 25.0, Anion Gap 7, BUN 12, Creatinine 0.52 L, Estim Creat Clear Calc 51.41, Est GFR (MDRD) Non-Af 96, BUN/Creatinine Ratio 23.8 H, Glucose 126 H, Calcium 8.6, Vitamin B12 366 02/26/25 06:49: POC Glucose 121 H Micro: Microbiology 02/23/25 11:40 Urine, Catheterized Urine Culture - Final Escherichia coli 02/22/25 13:45 Stool Stool Occult Blood (JEREMY) - Final Occult Blood Positive Physical Exam Const alert Constitutional Narrative: Confused. Pleasant. Sitting in the recliner at the bedside and appears comfortable. General Appearance: cooperative HEENT Mouth: dry mucous membranes Resp clear to auscultation bilaterally Resp Narrative: CTA anterior. No conversational dyspnea. Not coughing. NO wheezing. Effort and Inspection: Negative for tachypneic Cardio regular rate, regular rhythm and no gallops Cardio Narrative: the heart MM is not as loud today. Still radiating to the LVOT, LLSB, apex and into the R carotid. No ectopy. EKG on Wednesday showed AF. She was started on Lopressor and is tolerating Lopressor with no bradycardia and no hypotension. Extremity Extremity Narrative: She has pitting edema of the L ankle. No edema on the R. No calf pain. Skin Rashes: no rashes Psych affect normal Attitude: No agitated Activity / Motor Behavior: Negative for restless Assessment & Plan Assessment/Plan (1) Debility: (2) Intertrochanteric fracture of left femur: QUALIFIERS: Encounter type: initial encounter Fracture alignment:displaced Fracture type: closed Qualified Code(s): S72.142A - Displaced intertrochanteric fracture of left femur, initial encounter for closed fracture (3) History of open reduction and internal fixation (ORIF) procedure: (4) Hyponatremia: (5) Anemia: QUALIFIERS: Anemia type: unspecified type Qualified Code(s): D64.9 - Anemia, unspecified (6) Vitamin D deficiency: (7) Hypothyroidism: QUALIFIERS: Hypothyroidism type: acquired Qualified Code(s): E03.9 - Hypothyroidism, unspecified (8) H/O thyroidectomy: (9) Diabetes mellitus, type 2: QUALIFIERS: Diabetes mellitus complication status: with other specified complication Diabetes mellitus alf insulin use: 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 (11) Cognitive dysfunction: PLAN: I suspect she has dementia. Hypothyroidism may be contributing to this but TSH is only mildly elevated. Will recommend neurology follow-up at discharge. We have not noticed her hallucinating. (12) Constipation: QUALIFIERS: Constipation type: unspecified constipation type Qualified Code(s): K59.00 - Constipation, unspecified (13) Occult blood in stools: (14) History of hemorrhoids: (15) Murmur, cardiac: (16) Hyperlipemia: QUALIFIERS: Hyperlipidemia type: unspecified Qualified Code(s): E78.5 - Hyperlipidemia, unspecified (17) Right carotid bruit: PLAN: Recommend carotid ultrasound as an outpatient. (18) Fecal incontinence: QUALIFIERS: Fecal incontinence type: full incontinence of feces Qualified Code(s): R15.9 - Full incontinence of feces (19) Urinary bladder incontinence: QUALIFIERS: Urinary Incontinence type: functional incontinence Qualified Code(s): R39.81 - Functional urinary incontinence (20) Paroxysmal atrial fibrillation: PLAN: this needs to be further evaluated by cardiology as an OP. Will need an ECHO to evaluate the MM and will also need an event monitor at [place]. PLAN: Plan 1. Continue therapy 2. Finish 5 days of Macrobid. 3. Increase the Glucophage in the a.m. to 750 mg. Decrease Accu-Cheks to twicedaily, fasting and 5 PM. Discontinue sliding scale insulin. 4. Unclear to me whether she has Parkinson's disease or parkinsonism secondary to dementia. Will refer to neurology for workup at discharge from rehab. 5. She will need a event monitor at [place] from rehab. She has had PAF while on rehab. 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 Also will need a carotid US (can be done as an OP) for loud R carotid bruit.....vs radiation of MM Charges/Coding Visit Charges Inpatient E&M: 93029 Subs Hosp L2 02/26/25 1537 <Electronically signed by Katie Bah DO> Katie Bah DO Cosigner Signature (if applicable): CC: ~ Signed [facility] Work Phone: [phone]) 759-262107-07-2025 Progress note [facility] Medical Records Department [address] [place] [address] Progress Note 02/26/25 0857 MR#: [id number] Acct: [id number] Name: SHASHI OSWALD Rep #:[id number] : 1945 79 From: Katie Bah DO PCP: Dr. Candelario Santana MD Status:ADM I N Location: [place] [address] Subjective Subjective Shashi was seen on team rounds today. Her son Ash was in attendance in the room. Afebrile VSS -blood pressure over the past 2 days has ranged from 112/54 to 153/47. Heart rate has ranged from 61-71. Maintaining appropriate oxygen saturation on RA Oral intake - FOOD good FLUIDS fair most days Discussed with nursing - no problems that need addressed. Sleeping well at night. Reviewed the THERAPY notes Medication list reviewed. All lab from this morning was personally reviewed. Hemoglobin is stable at 8.4. Sodium is up to 133and the potassium is 3.9. BUN is 12 with a creatinine of 0.52 which is stable. Calcium is normal. B12 is normal at 366. The urine culture grew E. coli which is sensitive to nitrofurantoin. Stool is Hemoccult positive Shashi denies dizziness, lightheadedness, cephalgia, chest pain, shortness of breath, nausea/vomiting/abdominal pain, dysuria and calf pain. She does have continued to have pain in the left thigh above the knee. Shashi does not feel she will be able to go right home from rehab and she is agreeable togoing to SNF if needed). Ash is in agreement with this as well. Objective Data Objective Data Vital Signs: Vital Signs Temp Pulse Resp BP Pulse Ox O2 Del Method 98.4 F 63 15 147/55 H 94 Room Air 02/26/25 06:00 02/26/25 06:00 02/26/25 06:00 02/26/25 06:00 02/26/25 06:00 02/26/25 06:00 Oxygen Delivery Method Room Air Weight: 139 lb 1.787 oz Body Mass Index (BMI) 25.4 Intake & Output: Intake and Output for Last 24 Hours 02/24/25 02/25/25 02/26/25 23:59 23:59 23:59 Intake Total 1095 / 1095 870 / 870 220 / 220 Balance 1095 / 1095 870 / 870 220 / 220 Lab / Micro Data 02/26/25 05:21 02/26/25 05:21 Labs: Laboratory Results - last 24 hr 02/25/25 11:28: POC Glucose 214 H 02/25/25 16:54: POC Glucose 121 H 02/25/25 22:35: POC Glucose 184 H 02/26/25 05:21: Hgb 8.4 L, Hct 24.4 L, Sodium 133, Potassium 3.9, Chloride 101, Carbon Dioxide 25.0, Anion Gap 7, BUN 12, Creatinine 0.52 L, Estim Creat Clear Calc 51.41, Est GFR (MDRD) Non-Af 96, BUN/Creatinine Ratio 23.8 H, Glucose 126 H, Calcium 8.6, Vitamin B12 366 02/26/25 06:49: POC Glucose 121 H Micro: Microbiology 02/23/25 11:40 Urine, Catheterized Urine Culture - Final Escherichia coli 02/22/25 13:45 Stool Stool Occult Blood (JEREMY) - Final Occult Blood Positive Physical Exam Const alert Constitutional Narrative: Confused. Pleasant. Sitting in the recliner at the bedside and appears comfortable. General Appearance: cooperative HEENT Mouth: dry mucous membranes Resp clear to auscultation bilaterally Resp Narrative: CTA anterior. No conversational dyspnea. Not coughing. NO wheezing. Effort and Inspection: Negative for tachypneic Cardio regular rate, regular rhythm and no gallops Cardio Narrative: the heart MM is not as loud today. Still radiating to the LVOT, LLSB, apex and into the R carotid. No ectopy. EKG on Wednesday showed AF. She was started on Lopressor and is tolerating Lopressor with nobradycardia and no hypotension. Extremity Extremity Narrative: She has pitting edema of the L ankle. No edema on the R. No calf pain. Skin Rashes: no rashes Psych affect normal Attitude: No agitated Activity / Motor Behavior: Negative for restless Assessment & Plan Assessment/Plan (1) Debility: (2) Intertrochanteric fracture of left femur: QUALIFIERS: Encounter type: initial encounter Fracture alignment:displaced Fracture type: closed Qualified Code(s): S72.142A - Displaced intertrochanteric fracture of left femur, initial encounter for closed fracture (3) History of open reduction and internal fixation (ORIF) procedure: (4) Hyponatremia: (5) Anemia: QUALIFIERS: Anemia type: unspecified type Qualified Code(s): D64.9 - Anemia, unspecified (6) Vitamin D deficiency: (7) Hypothyroidism: QUALIFIERS: Hypothyroidism type: acquired Qualified Code(s): E03.9 - Hypothyroidism, unspecified (8) H/O thyroidectomy: (9) Diabetes mellitus, type 2: QUALIFIERS: Diabetes mellitus complication status: with other specified complication Diabetes mellitus alf 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 (11) Cognitive dysfunction: PLAN: I suspect she has dementia. Hypothyroidism may be contributing to this but TSH is only mildlyelevated. Will recommend neurology follow-up at discharge. We have not noticed her hallucinating. (12) Constipation: QUALIFIERS: Constipation type: unspecified constipation type Qualified Code(s): K59.00 - Constipation, unspecified (13) Occult blood in stools: (14) History of hemorrhoids: (15) Murmur, cardiac: (16) Hyperlipemia: QUALIFIERS: Hyperlipidemia type: unspecified Qualified Code(s): E78.5 - Hyperlipidemia, unspecified (17) Right carotid bruit: PLAN: Recommend carotid ultrasound as an outpatient. (18) Fecal incontinence: QUALIFIERS: Fecal incontinence type: full incontinence of feces Qualified Code(s): R15.9 - Full incontinence of feces (19) Urinary bladder incontinence: QUALIFIERS: Urinary Incontinence type: functional incontinence Qualified Code(s): R39.81 - Functional urinary incontinence (20) Paroxysmal atrial fibrillation: PLAN: this needs to be further evaluated by cardiology as an OP. Will need an ECHO to evaluate the MM and will also need an event monitor at [place]. PLAN: Plan 1. Continue therapy 2. Finish 5 days of Macrobid. 3. Increase the Glucophage in the a.m. to 750 mg. Decrease Accu-Cheks to twicedaily, fasting and 5 PM. Discontinue sliding scale insulin. 4. Unclear to me whether she has Parkinson's disease or parkinsonism secondary to dementia. Will refer to neurology for workup at discharge from rehab. 5. She will need a event monitor at [place] from rehab. She has had PAF while on rehab. 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 Also will need a carotid US (can be done as an OP) for loud R carotid bruit.....vs radiation of MM Charges/Coding Visit Charges Inpatient E&M: 08710 [facility] Hosp L2 02/26/25 1537 Katie Bah DO Cosigner Signature (if applicable): CC: ~ Signed [facility]07-04-2025 Progress note Author Katie Bah [facility] Note Date/Time February 23, 2025 1:26p m [facility] Medical Records Department [address] [place] [address] Progress Note 02/23/25 1253 MR#: [id number] Acct: [id number] Name: SHASHI OSWALD Rep #:[id number] : 1945 79 From: Katie Bah DO PCP: Dr. Candelario Santana MD Status:ADM I N Location: [place] [address] Subjective Subjective Afebrile VSS -blood pressure since admission to rehab have ranged from 119/65 to 164/61. Heart rate has been within normal limits. Maintaining appropriate oxygen saturation on RA Oral intake - FOOD good FLUIDS fair The blood sugar record was reviewed. The last 4 Accu-Cheks are all less than 200. No hypoglycemia. She is on a carb controlled diet. Postvoid residuals x 4 are all less than 150. The last postvoid residual was 35. Discussed with nursing - no problems that need addressed Reviewed the THERAPY notes Medication list reviewed. urine osmo, serum osmo and urine sodium not consistent with SIADH. Low sodium likely due to hypothyroidism + mild dehydration. UA yesterday showed 3+ bacteria, positive nitrite and 25-50 WBCs. Urine culturewas not sent and this was not a clean-catch. A straight cath with repeat UA andurine culture was ordered today. After the straight cath has been completed we will start a antibiotic empirically and await the results of the urine culture. She denies dysuria. Shashi slept well last night. She is doing better with pain since the Pain medications have been scheduled. She tells me the pain is better today and she did better with therapy......no longer grimacing. She denies chest pain, shortness of breath, cough, lightheadedness, nausea/vomiting, dysuria and calf tenderness. She tells me her pain is mostly in the left lower extremity above the knee on the lateral side of the thigh. She is incontinent of urine. She was seen by speech therapy today for a cognitive evaluation. She was given the SESAR-III test and scored 37/100. Objective Data Objective Data Vital Signs: Vital Signs Temp Pulse Resp BP Pulse Ox O2 Del Method 97.3 F L 76 16 147/72 H 99 Room Air 02/23/25 06:00 02/23/25 06:00 02/23/25 06:00 02/23/25 06:00 02/23/25 06:00 02/23/25 08:08 Oxygen Delivery Method Room Air Weight: 139 lb 1.787 oz Body Mass Index (BMI) 25.4 Intake & Output: Intake and Output for Last 24 Hours 02/21/25 02/22/25 02/23/25 23:59 23:59 23:59 Intake Total 450 / 450 1250 / 1250 540 / 540 Balance 450 / 450 1250 / 1250 540 / 540 Lab / Micro Data 02/22/25 06:05 02/22/25 06:05 Labs: Laboratory Results - last 24 hr 02/22/25 16:34: POC Glucose 195 H 02/22/25 16:47: Serum Osmolality 283, Iron 69, TIBC 197 L, Iron Saturation 35.0,Unsaturated IBC 128 L, Ferritin 217 02/22/25 18:42: Urine Color Yellow, Urine Clarity Cloudy, Urine pH 6.5, Ur Specific [place] 1.010, Urine Protein 30 H, Urine Glucose (UA) Normal, Urine Ketones Negative, Urine Occult Blood 50 H, Urine Nitrite Positive H, Urine Bilirubin Negative, Urine Urobilinogen Normal, Ur Leukocyte Esterase 500 H, Urine RBC 0-5 SEEN, Urine WBC 25-50 SEEN, Ur Squamous Epith Cells 0-5 SEEN, Urine Bacteria 3+, Urine Mucus 0 SEEN, Urine Osmolality 176, Ur Random Sodium < 20 02/22/25 21:46: POC Glucose 182 H 02/23/25 06:27: POC Glucose 153 H 02/23/25 11:10: POC Glucose 185 H Micro: Microbiology 02/22/25 13:45 Stool Stool Occult Blood (JEREMY) - Final Occult Blood Positive Physical Exam Const alert and no apparent distress Constitutional Narrative: Pleasant and talkative. General Appearance: cooperative HEENT Mouth: dry mucous membranes Neck Neck Narrative: Loud right carotid bruit. No JVD. Resp normal respiratory effort and clear to auscultation bilaterally Resp Narrative: No conversational dyspnea Effort and Inspection: Negative for tachypneic Cardio no rub and no gallops Cardio Narrative: No change in the 3/6 systolic murmur heard best at the second right intercostal space with radiation to the left ventricular outflow tract, lower left sternal border and apex. She is in an irregular irregular rhythm today and she feels this. When I listen to her the heart rate was greater than 100 bpm at rest. GI normal to inspection, nondistended, normoactive bowel sounds, soft to palpation and non-tender Extremity no calf tenderness Extremity Narrative: Very mild left ankle edema. Mepilex dressings are still in place. There is no erythema around the dressing. Assessment & Plan Assessment/Plan (1) Debility: (2) Intertrochanteric fracture of left femur: QUALIFIERS: Encounter type: initial encounter Fracture type: closed Fracture alignment: displaced Qualified Code(s): S72.142A - Displaced intertrochanteric fracture of left femur, initial encounter for closed fracture (3) History of open reduction and internal fixation (ORIF) procedure: (4) Hyponatremia: (5) Anemia: QUALIFIERS: Anemia type: unspecified type Qualified Code(s): D64.9 - Anemia, unspecified (6) Vitamin D deficiency: (7) Hypothyroidism: QUALIFIERS: Hypothyroidism type: acquired Qualified Code(s): E03.9 - Hypothyroidism, unspecified (8) H/O thyroidectomy: (9) Diabetes mellitus, type 2: QUALIFIERS: 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 suspect she has dementia. Will recommend follow up with neurology post DC from rehab. (12) Constipation: QUALIFIERS: Constipation type: unspecified constipation type Qualified Code(s): K59.00 - Constipation, unspecified (13) Occult blood in stools: (14) History of hemorrhoids: (15) Murmur, cardiac: (16) Hyperlipemia: QUALIFIERS: Hyperlipidemia type: unspecified Qualified Code(s): E78.5 - Hyperlipidemia, unspecified (17) Right carotid bruit: PLAN: Plan 1. Continue therapy 2. EKG today 3. Straight cath for a clean UA and a urine culture. After the straight cath is done and the urine is obtained we will start Macrobid 100 mg BID empirically and await the results of the urine culture. 4. No treatment for sodium of 131 at this time. Encouraged good fluid intake. Recehck a BMP next week. 5. Has not had a CT brain at [facility] in the past. TSH is high and this could be contributing to the cognitive dysfunction but, she only scored 37/100 on the SESAR-III and I suspect she has dementia. Will check a B12 level with the next blood draw. Consider a CT brain as an OP. Consider referral to neurology for treatment of dementia. Continue ST while she is on rehab. 6. Start GLucophage 500 mg daily tomorrow AM. GFR is 98. Charges/Coding Visit Charges Inpatient E&M: 11946 Subs Hosp L1 02/23/25 1321 <Electronically signed by Katie Bah DO> Katie Bah DO Cosigner Signature (if applicable): CC: ~ Signed ADDENDUM by Dr. Katie Bah DO on 02/23/25 at 1326 Addendum EKG showed AF with a HR of 92 BPM. QT is WNL. NO ST elevation or depression. Mild LAD. Will add Lopressor 12.5 mg BID to the current Drug regimen. Has she been having PAF? TIA's? is this contributuing to cognitive dysfunction? Shouldshe be anticoagulated? Continue Eliquis 2.5 mg BID for now. Needs an ECHO and a CT brain. urine was obtained and the urine culture has been set up but, no results on UA yet. 02/23/25 1326 <Electronically signed by Katie partida DO> Date _ Katie Bah DO Cosigner Signature (if applicable): Date cc: ~* Signed [facility] Work Phone: 1(243) 710-819107-04-2025 History and physical note Author Katie Bah [facility] Note Date/Time February 23, 2025 12:50 pm [facility] Medical Records Department [address] [place] [address] Post Admission Physician Danial 02/23/25 1242 MR#: [id number] Acct: [id number] Name: SHASHI OSWALD Rep #:[id number] : 1945 79 From: Katie Bah DO PCP: Dr. Candelario Santana MD Status:ADM I N Location: [place] [address] Admission Information Primary Diagnosis:: Debility secondary to left hip fracture/ORIF Status Changes from Prescreening?: No changes Identified Actual Problem List:: Falls, Skin Intergrity, Pain, ALteration in Cmfrt, Cognitve Impr/Memory Loss, Bladder Incontinence, Bowel, Constipation, Alterationin Sleep, Mobility Impaired, Self Care Deficit, Diabetes, Hyperglycemia, BP, Hypertension and Alteration-Leisure Activ. Potential Problem List:: DVT, Bleeding, Infection, UTI, Aspiration, Falls, Skin Integrity and Depression Risk of Complications DVT: CAMILA Hose and - (Eliquis 2.5 mg twice daily) Bleeding: Monitor Lab Values, Nursing to Teach Precautions for anti-coagulation therapy., Wound, if applicable, to be assessed every shift. and Stroke patients assessed for lethargy or change in status. Infection: Clinical Staff to Monitor for S/S of infection: and S/S of infection include fever, redness, warmth, etc. Urinary Tract Infection: Monitor for frequency, burning, discomfort, or incontinence. and Nursing will obtain urine sample for urinalysis and C&S when ordered. Aspiration: Clinical staff will monitor for coughing, drooling, congestion., Speech will evaluate swallowing and dsyphasia. and Nursing will monitor patient swallowing during meals. Falls: Patient will be evaluated for Fall Precautions and Patient will be placedon Fall Precautions as indicated per protocol. Skin Breakdown: Nursing will assess skin daily using assessment tool. and Nursing will place on Skin Breakdown Precautions as indicated. Pain: Clinical staff will assess patient's pain level per protocol., Medicationswill be given, if needed, and the pain level reassessed. and Other methods: Massage, distraction, decrease stimulus, etc. used PRN. Plan of Care Patient requires physician specializing in physical medicine and rehab oversightto provide close medical supervision of rehab issues including: Pain Management,Sleep Problems, Bowel and Bladder, Medical and co-morbidity Management, DVT prophylaxis, Rehabilitation Leadership and Coordination of treatment team Patient needs Physical Therapy: For a minimum of 1 hour and At least 5 out of 7 days Patient needs Physical Therapy to improve:: Mobility, Strengthening, Transfers, Stretching, ROM, Endurance, Stairs, Gait and Balance Patient needs Occupational Therapy: For a minimum of 1 hour and At least 5 out of 7 days Patient needs Occupational Therapy to improve ADL's incl.: Eating, Grooming, Bathing, Dressing, Toileting, Toilet transfers, Community Reintegration, Higher functioning activities, Household tasks, Adaptive Equipment, Splinting and Otheractivities as determined Patient requires speech therapy: For a minimum of 1 hour and At least 5 out of 7days Patient requires speech therapy for: Swallowing, Cognition, Language Skills and Compensatory Strategies Patient requires 24/ Rehabilitation Nursing for: Pain Issues, Identifying and preventing risk factors, Monitoring and reporting current medical conditions, Assisting with ambulation, transfer, and all ADL's, Teaching patients about disease process and medications, Family teaching, Providing safe environment, Bowel and Bladder Issues, Skin integrity and Medication Management Patient needs Lens Grinder Rough/ Case Management for: Discharge Planning, Arranging Home Equipment or Services and Family Interventions Patient needs Dietary and Nutrition Services for: Adequate Nutrition, Nutritional Supplements and Nutritional Education Goals Goals Patient will remain: free from falls Patient will perform eating at: MOD I level of assist. Patient will perform bed mobility at: MOD I level of assist. Patient will complete transfers from bed to chair at: Standby Assist. Patient will ambulate: - (150 feet with least restrictive device at standby assist on various surfaces) Patient will complete upper body dressing at: - (Supervision) Patient will complete lower body dressing at: - (Supervision with adaptive equipment as needed for increased independence with self-care) Patient will complete toilet transfer at: - (Supervision) Patient will complete toileting at: - (Supervision) Patient will perform bathing at: - (She will complete upper body bathing at supervision and lower body bathing and supervision with adaptive equipment as needed to facilitate independence with self-care) Patient will perform Tub/Shower transfer at: - (Supervision) Patient will complete grooming at: - (Supervision while standing at the sink) Patient will achieve: - (3 steps with 1 handrail at minimal assistance to allow access to her home entrance.) Patient will have pain level of: of 3 or less Patient's skin will: remain intact Patient will receive: adequate nutrition. Discharge Planning Pt Prognosis for Sig. Practical Improv. w/in Reasonable Time: Good Estimated Length of stay (days): 21 Anticipated D/C Destination: Home w/ family or friends (Her son Ash lives with her and assists her as needed. Will likely need HHC for a few weeks and then transition to OP therapy. PD and cognitive dysfunction complicate recovery and she will need a little extra time with therapy to get her home. ) Was Preadmission Assessment Accurate?: Yes 02/23/25 1250 <Electronically signed by Katie Bah DO> Cosigner Signature (if applicable): CC: ~ Signed [facility] Work Phone: 1(720) 336-973807-04-2025 History and physical note Author Katie Bah [facility] Note Date/Time February 23, 2025 12:42 pm [facility] Medical Records Department [address] [place] [address] History & Physical Exam 02/22/25 0945 MR#: [id number] Acct: [id number] Name: SHASHI OSWALD Rep #:[id number] : 1945 79 From: Katie Bah DO PCP: Dr. Candelario Santana MD Status:ADM I N Location: [place] [address] HPI - General General Date of Admission: 02/21/25 Date of Service: 02/22/25 Chief Complaint: Debility secondary to left hip fracture and patient with Parkinson's disease HPI Narrative SHASHI OSWALD, is a 79 YO F with a past medical history of Parkinson's disease?, diabetes mellitus type 2, hypertension, hypothyroidism (status post thyroidectomy), restless leg syndrome, history of choledocholithiasis (has had an ERCP and placement of temporary biliary stents in November [address] Tran), internal hemorrhoids, iron deficiency anemia and memory problems who presented to the emergency department at [facility] on 02/15/2025 complaining of left hip pain and inability to walk. She had a fall the previousweek and had not been able to get up off the couch since then.../ Family and friends provided assistance. Pelvic x-ray revealed a left intertrochanteric fracture. Dr. Chacon was consulted and she was taken to the operating room on 02/16/2025 and underwent left femur cephalomedullary nailing. she was transferred to the acute inpt rehab unit at [facility] on 02/21/25 for 3 hours of therapydaily to restore function/independence at or near her level prior to the fall. She lives with family in a private one-story home with 3 steps to enter her home. There is 1 handrail. She ambulates in the house without an assistive device. She was independent with her ADLs. PT commented to me today that pt denies having PD. When it was explained that she takes Sinemet and this is for PD she said maybe PD resulted form recent fall. She has not been asking for pain medication but, she grimaces with movement. All lab from this morning was personally reviewed. The sodium is low at 131 andthe potassium is 4.1. The BUN is stable at 15 and the creatinine is 0.47 which is actually below what her baseline has been over the past 4 years. Calcium is normal and the phosphorus is 3.2 with a borderline low magnesium of 1.5. ALT and AST are both normal and the bilirubin today is normal at 1. It was elevatedat 2.68 at admission to the hospital. Alk phos is very mildly increased and this is more likely than not related to the fracture. TSH on 02/16/2025 was highat 7.49 and the T4 is normal at 1.10. She has had a thyroidectomy in the past and is not on a thyroid supplement. Hemoglobin A1c is 7.3. Vitamin D level is low at 10.7 and she has been started on Calcium and vitamin D since she was admitted to the hospital. Calcium and vitamin D supplement.....compliance? Does she do her own medications or is family helping. Her last bone mineral density test was in 2012 and at that time she was considered osteopenic. Afebrile The blood pressure has ranged from 119/65 to 157/54 since arrival on rehab. Blood pressures were well-controlled while on the acute side of the hospital. Maintaining appropriate oxygen saturation on room air. Has only taken 1 tramadol since admission to rehab and that was last night at atbedtime. We did schedule acetaminophen every 8 hours for pain control. Blood sugars are not adequately controlled. She is only on sliding scale insulin. There were no diabetic medications listed on the H&P from admission tothe acute side of the hospital. I reviewed a DC summary from 2021 when she was in the hospital and at that time she was taking levothyroxine, sitagliptin/metformin and Actos. I had the opportunity to talk with her son Ash with whom she lives and her sister and they were able to provide me with some history. Ash tells me that his mother has problems with her memory and she does not like to use an assistive device. She was previously on some diabetic meds and levothyroxine but she refused to take them so her PCP just discontinued them. She chronicallyhas a problem with constipation and feeling tired all the time. She was startedon Sinemet just recently by Dr. Santana for some gait instability, masked facies and resting tremor. This could be due to PD or it could be due to parkinsonism due to brain shrinkage? Has never had a CT head at this institution. Has not seen a neurologist. [facility] Medical History Hypothyroidism Diabetes mellitus, type 2 High total serum IgA Pre-syncope Tachycardia Elevated troponin Choledocholithiasis Rheumatoid arthritis Kidney stones Asthma Irregular heart beat Migraines Parkinson's disease Wears glasses Arthritis Restless legs Syncope Dietary restriction Non-smoker Leg cramps Chronic anemia Hypertension Home Medications ?Medication ?Instructions ?Recorded ?Last Taken ?Type carbidopa 25 mg-levodopa 100 mg 1 tab PO TID parkinson 02/15/25 02/21/25 History tablet losartan 50 mg tablet 50 mg PO DAILY blood pressur e 02/15/25 02/15/25 History Held on 02/21/25. Instructions: Until blood pressures are consistently greater than 130 systolic acetaminophen 500 mg tablet 1,000 mg (2 x 500 mg) PO Q 8 pain 02/21/25 02/21/25 Rx #0 tabs apixaban 5 mg tablet (Eliquis) 2.5 mg (1/2 x 5 mg) PO BID DVT 02/21/25 02/21/25 Rx prophylaxis #0 tabs calcium carbonate 500 mg (2.5 x 200 mg calcium (500 02/21/25 02/21/25 Rx mg)) PO TIDCM supplement #0 tabs ergocalciferol (vitamin D2) 1,250 1,250 mcg PO Q7D sup plement #0 caps 02/21/25 Unknown Rx mcg (50,000 unit) capsule (Vitamin D2) melatonin 10 mg sublingual tablet 10 mg PO QHS PRN PRN Insomnia #0 02/21/25 02/20/25 Rx tabs Allergy/AdvReac Type Severity Reaction Status Date / Time Penicillins Allergy Intermediate Hives Verified 02/15/25 13:14 Family History Father Myocardial infarction Hypertension Heart disease Sister Breast cancer Mother CVA (cerebral vascular accident) Surgical History History of open reduction and internal fixation (ORIF) procedure Hx of right cataract extraction Hx of left cataract extraction Hx of esophagogastroduodenoscopy Hx of colonoscopy History of ERCP S/P tubal ligation History of thoracic surgery H/O thyroidectomy History of cholecystectomy Hx of appendectomy Social History household members: other details: with son Ash Smoking Status: Never smoker alcohol intake: never substance use type: does not use what type of physical activity do you participate in: none do you feel safe at home: Yes ROS Constitutional Constitutional: Reports weakness; Denies anorexia, change in weight, chills, fatigue, fever(s) or night sweats Eyes Eyes: Denies blurry vision, change in vision, eye pain or loss of vision ENT HEENT: Denies abnormal hearing, dysphagia, headache(s), hearing loss, nasal congestion or sore throat Cardiovascular Cardiovascular: Reports edema, racing heartbeat and other Details: she gets palpitations and feels like her heart is racing. ; Denies chest pain, dyspnea on exertion, lightheadedness, orthopnea, palpitations, paroxysmal nocturnal dyspnea or syncope Respiratory/Chest Respiratory/Chest: Denies cough, dyspnea, shortness of breath at rest, shortnessof breath with exertion or wheezing Gastrointestinal Gastrointestinal: Reports constipation; Denies abdominal pain, diarrhea, dyspepsia, hematemesis, hematochezia, nausea or vomiting Genitourinary Genitourinary: Reports urinary incontinence; Denies dysuria, hematuria, nocturia, urinary frequency, urinary hesitancy or urinary urgency Musculoskeletal Musculoskeletal: Reports arthralgias, difficulty walking, joint pain and other Details: pain in the left hip, thigh and knee due to left hip intertrochanteric fracture-status post cephalomedullary nail ; Denies back pain, joint swelling or neck pain Neurologic Neurologic: Reports confusion, memory loss, weakness and other Details: per her son prior to Sinemet she had a festinating gait, masked facies and tremors. This has improved with addition of Sinemet to her drug regimen. ; Denies disequilibrium, dizziness, focal weakness, headache(s), paresthesias, seizures or tremor(s) Psychiatric Psychiatric: Denies anxiety, depression, homicidal ideation or suicidal ideation Endocrine Endocrinology: Denies change in body appearance, polydipsia or polyuria Hematologic/Lymphatic Hematologic/Lymphatic: Reports easy bruising; Denies easy bleeding or lymphadenopathy Allergic/Immunologic Allergic/Immunologic: Denies rhinitis, eczemia or asthma Vital Signs Vital Signs Vital Signs: 02/21/25 14:46 02/21/25 17:31 02/21/25 17:44 Temperature 98.5 F 98.5 F Temperature Source Temporal Temporal Pulse Rate 85 85 Pulse Strength Respiratory Rate 15 15 Respiratory Effort Normal Non-Labored Respiratory Depth Normal Respiratory Pattern Normal Blood Pressure 157/54 H 157/54 H Blood Pressure Mean 88 88 Blood Pressure Source Monitor Monitor Blood Pressure Position Semi-Fowlers Semi-Fowlers Blood Pressure Location Right Arm Right Arm Pulse Ox 98 Oxygen Delivery Method Room Air Room Air Room Air 02/21/25 19:58 02/21/25 20:00 02/22/25 05:35 Temperature 97.8 F Temperature Source Temporal Pulse Rate 79 Pulse Strength Normal (2+) Respiratory Rate 16 Respiratory Effort Normal Non-Labored Respiratory Depth Normal Respiratory Pattern Normal Blood Pressure 119/65 Blood Pressure Mean 83 Blood Pressure Source Monitor Blood Pressure Position Semi-Fowlers Blood Pressure Location Right Arm Pulse Ox 96 Oxygen Delivery Method Room Air Room Air 02/22/25 09:19 Temperature Temperature Source Pulse Rate Pulse Strength Normal (2+) Respiratory Rate Respiratory Effort Respiratory Depth Respiratory Pattern Blood Pressure Blood Pressure Mean Blood Pressure Source Blood Pressure Position Blood Pressure Location Pulse Ox Oxygen Delivery Method Weight Weight: 139 lb 1.787 oz Body Mass Index (BMI) 25.4 Physical Exam Const alert and no apparent distress General Appearance: cooperative and well kempt HEENT HEENT Narrative: MM are dry and she has many missing teeth. She denies trouble chewing. No thrush. Denies mouth pain. Eyes PERRL, EOMs intact bilaterally, conjunctivae normal and no scleral icterus Eyes Narrative: No discharge from the eyes Neck supple Neck Narrative: loud R carotid bruit Resp normal respiratory effort, normal air movement, no use of accessory muscles and clear to auscultation bilaterally Resp Narrative: no cough Effort and Inspection: able to speak in complete sentences and symmetric chest movement Cardio regular rate, regular rhythm, no rub and no gallops Cardio Narrative: She has a 3/6 systolic murmur at the second right intercostal space with radiation to the left ventricular outflow tract, lower left sternal border and apex. No ectopy. GI normal to inspection, nondistended, normoactive bowel sounds, soft to palpation and non-tender GI Narrative: No guarding with palpation. no CVA tenderness Narrative: Has urinary incontinence but, she denies dysuria. PVR's X 2 are negative for retention. Extremity Extremity Narrative: Has some ankle edema, L>R. No pretibial edema. CAMILA hose are in place. Neuro Neuro Narrative: She has a mild pill rolling tremor with the R hand. I described a festinating gait to Ash and he tells me she had this prior to Sinemet. She has better facial expression since she was started on Sinemet. Oriented to person and place. No rigidity. PT did not find she had a festinating disease. She has no masked facies today. Poor memory and some confusion. Denies having PD but, tells me that she is on Sinemet......does not know what this medication is for. Speech is not slurred. She denies trouble swallowing. Tells me she does not cough when she is eating or drinking. Psych cooperative and affect normal Results Lab / Micro Data 02/22/25 06:05 02/22/25 06:05 Labs: Laboratory Results - last 24 hr 02/21/25 16:04: POC Glucose 242 H 02/21/25 21:56: POC Glucose 192 H 02/22/25 06:05: WBC 8.2, RBC 2.70 L, Hgb 8.5 L, Hct 24.1 L, MCV 89.3, MCH 31.5, MCHC 35.3, RDW Std Deviation 49.5 H, RDW Coeff of [place] 15.4 H, Plt Count 282, MPV8.8, Immature Gran % (Auto) 0.700, Neut % (Auto) 65.0, Lymph % (Auto) 23.7, [place]% (Auto) 7.2, Eos % (Auto) 3.0, Baso % (Auto) 0.4, Absolute Neuts (auto) 5.3, Absolute Lymphs (auto) 1.94, Nucleated RBC % 0, Sodium 131 L, Potassium 4.1, Chloride 99, Carbon Dioxide 23.6, Anion Gap 8, BUN 15, Creatinine 0.47 L, Estim Creat Clear Calc 51.41, Est GFR (MDRD) Non-Af 98, BUN/Creatinine Ratio 32.5 H, Glucose 203 H, Calcium 8.6, Phosphorus 3.2, Magnesium 1.5, Total Bilirubin 1.00, AST 31, ALT < 5, Alkaline Phosphatase 106 H, Total Protein 5.6 L, Albumin 2.6 L,Globulin 3.0, Albumin/Globulin Ratio 0.9 02/22/25 06:09: POC Glucose 189 H Assessment & Plan Assessment/Plan (1) Debility: (2) Intertrochanteric fracture of left femur: QUALIFIERS: Encounter type: initial encounter Fracture type: closed Fracture alignment: displaced Qualified Code(s): S72.142A - Displaced intertrochanteric fracture of left femur, initial encounter for closed fracture (3) History of open reduction and internal fixation (ORIF) procedure: (4) Hyponatremia: (5) Anemia: (6) Vitamin D deficiency: (7) Hypothyroidism: (8) H/O thyroidectomy: (9) Diabetes mellitus, type 2: (10) Parkinson's disease: (11) Cognitive dysfunction: (12) Constipation: (13) Occult blood in stools: (14) History of hemorrhoids: (15) Murmur, cardiac: (16) Hyperlipemia: (17) Right carotid bruit: PLAN: Plan PLAN PT for gait stability OT for ADL's ST for evaluation - for cognition. Analgesics as needed - pt not able to ask for pain medications when she is in pain due to confusion (new? or chronic) so will need to schedule pain meds. Bowel protocol Fall precautions Assess for Anxiety/Depression GI prophylaxis -not necessary at this time. She denies nausea/vomiting/epigastric pain/heartburn. DVT prophylaxis with Eliquis 2.5 mg twice daily Follow up with Dr. Santana, Dr. Chacon, possibly with neurology following DC from IP Rehab AM lab including CMP, CBC, Mag and Phos-personally reviewed Order iron, total iron-binding capacity, percent iron saturation and ferritin due to history of iron deficiency anemia in the past with Hemoccult positive stool. Why is she on Sinemet? she was not on this medication in 2021 when she was in the hospital for acute pancreatitis secondary to choledocholithiasis. Urine sodium, urine and serum osmolality Needs a BMD study in the not too distant future. Suspect she has osteoporosis. check with her son to get a complete med list. Melatonin 1.5 mg nightly. Hemoccult stool Obtain an accurate med list from Dr. Santana. - she has only been taking Sinemet and losartan? Was on diabetic medications and levothyroxine in 2021 per the DC summary. She would not take the meds so they were discontinued. No signs of CHF. Consider a Cartotid US going forward for the loud R carotid bruit. Consider ECHO.......May have developed some stenosis of the aortic valvesince the ECHO in 2016 that showed some calcification of the AV. Charges/Coding Visit Charges Inpatient E&M: 06488 Init Hosp L2 02/23/25 1242 <Electronically signed by Katie Bah DO> Cosigner Signature (if applicable): CC: Dr. Matt Chacon MD; Dr. Katie Bah DO; Dr. Candelario Santana MD~ Signed [facility] Work Phone: [phone]) 254-320007-04-2025 Progress note [facility] Medical Records Department [address] [place] [address] Progress Note 02/23/25 1253 MR#: [id number] Acct: [id number] Name: SHASHI OSWALD Rep #:[id number] : 1945 79 From: Katie Bah DO PCP: Dr. Candelario Santana MD Status:ADM I N Location: [place] [address] Subjective Subjective Afebrile VSS -blood pressure since admission to rehab have ranged from 119/65 to 164/61. Heart rate has beenwithin normal limits. Maintaining appropriate oxygen saturation on RA Oral intake - FOOD good FLUIDS fair The blood sugar record was reviewed. The last 4 Accu-Cheks are all less than 200. No hypoglycemia. She is on a carb controlled diet. Postvoid residuals x 4 are all less than 150. The last postvoid residual was 35. Discussed with nursing - no problems that need addressed Reviewed the THERAPY notes Medication list reviewed. urine osmo, serum osmo and urine sodium not consistent with SIADH. Low sodium likely due to hypothyroidism + mild dehydration. UA yesterday showed 3+ bacteria, positive nitrite and 25-50 WBCs. Urine culturewas not sent and this was not a clean-catch. A straight cath with repeat UA andurine culture was ordered today. After the straight cath has been completed we will start a antibiotic empirically and await the results of the urine culture. She denies dysuria. Shashi slept well last night. She is doing better with pain since the Pain medications have been scheduled. She tells me the pain is better today and she did better with therapy......no longer grimacing. She denies chest pain, shortness of breath, cough, lightheadedness, nausea/vomiting, dysuria andcalf tenderness. She tells me her pain is mostly in the left lower extremity above the knee on the lateral side of the thigh. She is incontinent of urine. She was seen by speech therapy today for a cognitive evaluation. She was given the SESAR-III test andscored 37/100. Objective Data Objective Data Vital Signs: Vital Signs Temp Pulse Resp BP Pulse Ox O2 Del Method 97.3 F L 76 16 147/72 H 99 Room Air 02/23/25 06:00 02/23/25 06:00 02/23/25 06:00 02/23/25 06:00 02/23/25 06:00 02/23/25 08:08 Oxygen Delivery Method Room Air Weight: 139 lb 1.787 oz Body Mass Index (BMI) 25.4 Intake & Output: Intake and Output for Last 24 Hours 02/21/25 02/22/25 02/23/25 23:59 23:59 23:59 Intake Total 450 / 450 1250 / 1250 540 / 540 Balance 450 / 450 1250 / 1250 540 / 540 Lab / Micro Data 02/22/25 06:05 02/22/25 06:05 Labs: Laboratory Results - last 24 hr 02/22/25 16:34: POC Glucose 195 H 02/22/25 16:47: Serum Osmolality 283, Iron 69, TIBC 197 L, Iron Saturation 35.0,Unsaturated IBC 128L, Ferritin 217 02/22/25 18:42: Urine Color Yellow, Urine Clarity Cloudy, Urine pH 6.5, Ur Specific Shoshone 1.010, Urine Protein 30 H, Urine Glucose (UA) Normal, Urine Ketones Negative, Urine Occult Blood 50 H, Urine Nitrite Positive H, Urine Bilirubin Negative, Urine Urobilinogen Normal, Ur Leukocyte Esterase 500H, Urine RBC 0-5 SEEN, Urine WBC 25-50 SEEN, Ur Squamous Epith Cells 0-5 SEEN, Urine Bacteria 3+, Urine Mucus 0 SEEN, Urine Osmolality 176, Ur Random Sodium < 20 02/22/25 21:46: POC Glucose 182 H 02/23/25 06:27: POC Glucose 153 H 02/23/25 11:10: POC Glucose 185 H Micro: Microbiology 02/22/25 13:45 Stool Stool Occult Blood (JEREMY) - Final Occult Blood Positive Physical Exam Const alert and no apparent distress Constitutional Narrative: Pleasant and talkative. General Appearance: cooperative HEENT Mouth: dry mucous membranes Neck Neck Narrative: Loud right carotid bruit. No JVD. Resp normal respiratory effort and clear to auscultation bilaterally Resp Narrative: No conversational dyspnea Effort and Inspection: Negative for tachypneic Cardio no rub and no gallops Cardio Narrative: No change in the 3/6 systolic murmur heard best at the second right intercostal space with radiation to the left ventricular outflow tract, lower left sternal border and apex. She is in an irregular irregular rhythm today and she feels this. When I listen to her the heart rate was greater than 100 bpm at rest. GI normal to inspection, nondistended, normoactive bowel sounds, soft to palpation and non-tender Extremity no calf tenderness Extremity Narrative: Very mild left ankle edema. Mepilex dressings are still in place. There is no erythema around the dressing. Assessment & Plan Assessment/Plan (1) Debility: (2) Intertrochanteric fracture of left femur: QUALIFIERS: Encounter type: initial encounter Fracture type: closed Fracture alignment: displaced Qualified Code(s): S72.142A - Displaced intertrochanteric fracture of left femur, initial encounter for closed fracture (3) History of open reduction and internal fixation (ORIF) procedure: (4) Hyponatremia: (5) Anemia: QUALIFIERS: Anemia type: unspecified type Qualified Code(s): D64.9 - Anemia, unspecified (6) Vitamin D deficiency: (7) Hypothyroidism: QUALIFIERS: Hypothyroidism type: acquired Qualified Code(s): E03.9 - Hypothyroidism, unspecified (8) H/O thyroidectomy: (9) Diabetes mellitus, type 2: QUALIFIERS: Diabetes mellitus alf insulin use: 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 suspect she has dementia. Will recommendfollow up with neurology post DC from rehab. (12) Constipation: QUALIFIERS: Constipation type: unspecified constipation type Qualified Code(s): K59.00 - Constipation, unspecified (13) Occult blood in stools: (14) History of hemorrhoids: (15) Murmur, cardiac: (16) Hyperlipemia: QUALIFIERS: Hyperlipidemia type: unspecified Qualified Code(s): E78.5 - Hyperlipidemia, unspecified (17) Right carotid bruit: PLAN: Plan 1. Continue therapy 2. EKG today 3. Straight cath for a clean UA and a urine culture. After the straight cath is done and the urine is obtained we will start Macrobid 100 mg BID empirically and await the results of the urine culture. 4. No treatment for sodium of 131 at this time. Encouraged good fluid intake. Recehck a BMP next week. 5. Has not had a CT brain at [facility] in the past. TSH is high and this could be contributing to the cognitive dysfunction but, she only scored 37/100 on the SESAR-III and I suspect she has dementia. Will check a B12 level with the next blood draw. Consider a CT brain as an OP. Consider referral to neurology for treatment of dementia. Continue ST while she is on rehab. 6. Start GLucophage 500 mg daily tomorrow AM. GFR is 98. Charges/Coding Visit Charges Inpatient E&M: 16682 Subs Hosp L1 02/23/25 1321 Katie Bah DO Cosigner Signature (if applicable): CC: ~ Signed ADDENDUM by Dr. Katie Bah DO on 02/23/25 at 1326 Addendum EKG showed AF with a HR of 92 BPM. QT is WNL. NO ST elevation or depression. Mild LAD. Will add Lopressor 12.5 mg BID to the current Drug regimen. Has she been having PAF? TIA's? is this contributuing to cognitive dysfunction? Shouldshe be anticoagulated? Continue Eliquis 2.5 mg BID for now. Needs an ECHO and a CT brain. urine was obtained and the urine culture has been set up but, no results on UA yet. 02/23/25 1326 ti DO> Date _ Katie Bah DO Cosigner Signature (if applicable): Date cc: ~* Signed [facility]07-04-2025 History and physical note [facility] Medical Records Department [address] [place] [id number] Post Admission Physician Danial 02/23/25 1242 MR#: [id number] Acct: [id number] Name: SHASHI OSWALD Rep #:[id number] : 1945 79 From: Katie Bah DO PCP: Dr. Candelario Santana MD Status:ADM I N Location: [place] [address] Admission Information Primary Diagnosis:: Debility secondary to left hip fracture/ORIF Status Changes from Prescreening?: No changes Identified Actual Problem List:: Falls, Skin Intergrity, Pain, ALteration in Cmfrt, Cognitve Impr/Memory Loss,Bladder Incontinence, Bowel, Constipation, Alterationin Sleep, Mobility Impaired, Self Care Deficit, Diabetes, Hyperglycemia, BP, Hypertension and Alteration-Leisure Activ. Potential Problem List:: DVT, Bleeding, Infection, UTI, Aspiration, Falls, Skin Integrity and Depression Risk of Complications DVT: CAMILA David and - (Eliquis 2.5 mg twice daily) Bleeding: Monitor Lab Values, Nursing to Teach Precautions for anti-coagulation therapy., Wound, ifapplicable, to be assessed every shift. and Stroke patients assessed for lethargy or change in status. Infection: Clinical Staff to Monitor for S/S of infection: and S/S of infection include fever, redness, warmth, etc. Urinary Tract Infection: Monitor for frequency, burning, discomfort, or incontinence. and Nursing will obtain urine sample for urinalysis and C&S when ordered. Aspiration: Clinical staff will monitor for coughing, drooling, congestion., Speech will evaluate swallowing and dsyphasia. and Nursing will monitor patient swallowing during meals. Falls: Patient will be evaluated for Fall Precautions and Patient will be placedon Fall Precautionsas indicated per protocol. Skin Breakdown: Nursing will assess skin daily using assessment tool. and Nursing will place on Skin Breakdown Precautions as indicated. Pain: Clinical staff will assess patient's pain level per protocol., Medicationswill be given, if needed, and the pain level reassessed. and Other methods: Massage, distraction, decrease stimulus, etc. used PRN. Plan of Care Patient requires physician specializing in physical medicine and rehab oversightto provide close medical supervision of rehab issues including: Pain Management,Sleep Problems, Bowel and Bladder, Medical and co-morbidity Management, DVT prophylaxis, Rehabilitation Leadership and Coordination of treat ment team Patient needs Physical Therapy: For a minimum of 1 hour and At least 5 out of 7 days Patient needs Physical Therapy to improve:: Mobility, Strengthening, Transfers, Stretching, ROM, Endurance, Stairs, Gait and Balance Patient needs Occupational Therapy: For a minimum of 1 hour and At least 5 out of 7 days Patient needs Occupational Therapy to improve ADL's incl.: Eating, Grooming, Bathing, Dressing, Toileting, Toilet transfers, Community Reintegration, Higher functioning activities, Household tasks, Adaptive Equipment, Splinting and Otheractivities as determined Patient requires speech therapy: For a minimum of 1 hour and At least 5 out of 7days Patient requires speech therapy for: Swallowing, Cognition, Language Skills and Compensatory Strategies Patient requires 24/7 Rehabilitation Nursing for: Pain Issues, Identifying and preventing risk factors, Monitoring and reporting current medical conditions, Assisting with ambulation, transfer, and all ADL's, Teaching patients about disease process and medications, Family teaching, Providing safe environment, Bowel and Bladder Issues, Skin integrity and Medication Management Patient needs Lens Grinder Rough/ Case Management for: Discharge Planning, Arranging Home Equipment orServices and Family Interventions Patient needs Dietary and Nutrition Services for: Adequate Nutrition, Nutritional Supplements and Nutritional Education Goals Goals Patient will remain: free from falls Patient will perform eating at: MOD I level of assist. Patient will perform bed mobility at: MOD I level of assist. Patient will complete transfers from bed to chair at: Standby Assist. Patient will ambulate: - (150 feet with least restrictive device at standby assist on various surfaces) Patient will complete upper body dressing at: - (Supervision) Patient will complete lower body dressing at: - (Supervision with adaptive equipment as needed for increased independence with self-care) Patient will complete toilet transfer at: - (Supervision) Patient will complete toileting at: - (Supervision) Patient will perform bathing at: - (She will complete upper body bathing at supervision and lower body bathing and supervision with adaptive equipment as needed to facilitate independence with self-care) Patient will perform Tub/Shower transfer at: - (Supervision) Patient will complete grooming at: - (Supervision while standing at the sink) Patient will achieve: - (3 steps with 1 handrail at minimal assistance to allow access to her home entrance.) Patient will have pain level of: of 3 or less Patient's skin will: remain intact Patient will receive: adequate nutrition. Discharge Planning Pt Prognosis for Sig. Practical Improv. w/in Reasonable Time: Good Estimated Length of stay (days): 21 Anticipated D/C Destination: Home w/ family or friends (Her son Ash lives with her and assists le needed. Will likely need HHC for a few weeks and then transition to OP therapy. PD and cognitivedysfunction complicate recovery and she will need a little extra time with therapy to get her home.) Was Preadmission Assessment Accurate?: Yes 02/23/25 1250 Cosigner Signature (if applicable): CC: ~ Signed [facility]07-04-2025 History and physical note [facility] Medical Records Department [address] [place] [address] History & Physical Exam 02/22/25 0945 MR#: [id number] Acct: [id number] Name: SHASHI OSWALD Rep #:[id number] : 1945 79 From: Katie Bah DO PCP: Dr. Candelario Santana MD Status:ADM I N Location: [place] [address] HPI - General General Date of Admission: 02/21/25 Date of Service: 02/22/25 Chief Complaint: Debility secondary to left hip fracture and patient with Parkinson's disease HPI Anel OSWALD, is a 79 YO F with a past medical history of Parkinson's disease?, diabetes mellitus type 2, hypertension, hypothyroidism (status post thyroidectomy), restless leg syndrome, history of choledocholithiasis (has had an ERCP and placement of temporary biliary stents in November [address] Tran), internal hemorrhoids, iron deficiency anemia and memory problems who presented to the emergency department at [facility] on 02/15/2025 complaining of left hip pain and inability to walk. She had a fall the previousweek and had not been able to get up off the couch since then.../Family and friends provided assistance. Pelvic x-ray revealed a left intertrochanteric fracture. Dr. Chacon was consulted and she was taken to the operating room on 02/16/2025 and underwent left femur cephalomedullary nailing. she was transferred to the acute inpt rehab unit at [facility] on 02/21/25 for 3 hours of therapydaily to restore function/independence at or near her level prior to the fall. She lives with family in a private one-story home with 3 steps to enter her home. There is 1 handrail. She ambulates in the house without an assistive device. She was independent with her ADLs. PT commented to me today that pt denies having PD. When it was explained that she takes Sinemet andthis is for PD she said maybe PD resulted form recent fall. She has not been asking for pain medication but, she grimaces with movement. All lab from this morning was personally reviewed. The sodium is low at 131 andthe potassium is 4.1. The BUN is stable at 15 and the creatinine is 0.47 which is actually below what her baseline has been over the past 4 years. Calcium is normal and the phosphorus is 3.2 with a borderline low magnesium of 1.5. ALT and AST are both normal and the bilirubin today is normal at 1. It was elevatedat 2.68 at admission to the hospital. Alk phos is very mildly increased and this is more likely than not related to the fracture. TSH on 02/16/2025 was highat 7.49 and the T4 is normal at 1.10. She has had athyroidectomy in the past and is not on a thyroid supplement. Hemoglobin A1c is 7.3. Vitamin D level is low at 10.7 and she has been started on Calcium and vitamin D since she was admitted to the hospital. Calcium and vitamin D supplement.....compliance? Does she do her own medications or is familyhelping. Her last bone mineral density test was in 2012 and at that time she was considered osteopenic. Afebrile The blood pressure has ranged from 119/65 to 157/54 since arrival on rehab. Blood pressures were well-controlled while on the acute side of the hospital. Maintaining appropriate oxygen saturation on room air. Has only taken 1 tramadol since admission to rehab and that was last night at atbedtime. We did schedule acetaminophen every 8 hours for pain control. Blood sugars are not adequately controlled. She is only on sliding scale insulin. There were no diabetic medications listed on the H&P from admission tothe acute side of the hospital. I reviewed a DC summary from 2021 when she was in the hospital and at that time she was taking levothyroxine, si tagliptin/metformin and Actos. I had the opportunity to talk with her son Ash with whom she lives and her sister and they were able to provide me with some history. Ash tells me that his mother has problems with her memory and she does not like to use an assistive device. She was previously on some diabetic meds and levothyroxine but she refused to take them so her PCP just discontinued them. She chronicallyhas a problem with constipation and feeling tired all the time. She was startedon Sinemet just recently by Dr. Santana for some gait instability, masked facies and resting tremor. This could be due to PD or it could be due to parkinsonism due to brain shrinkage? Has never had a CT head at this institution. Has not rajendra neurologist. [facility] Medical History Hypothyroidism Diabetes mellitus, type 2 High total serum IgA Pre-syncope Tachycardia Elevated troponin Choledocholithiasis Rheumatoid arthritis Kidney stones Asthma Irregular heart beat Migraines Parkinson's disease Wears glasses Arthritis Restless legs Syncope Dietary restriction Non-smoker Leg cramps Chronic anemia Hypertension Home Medications ?Medication ?Instructions ?Recorded ?Last Taken ?Type carbidopa 25 mg-levodopa 100 mg 1 tab PO TID parkinson 02/15/25 02/21/25 History tablet losartan 50 mg tablet 50 mg PO DAILY blood pressur e 02/15/25 02/15/25 History Held on 02/21/25. Instructions: Until blood pressures are consistently greater than 130 systolic acetaminophen 500 mg tablet 1,000 mg (2 x 500 mg) PO Q 8 pain 02/21/25 02/21/25 Rx #0 tabs apixaban 5 mg tablet (Eliquis) 2.5 mg (1/2 x 5 mg) PO BID DVT 02/21/25 02/21/25 Rx prophylaxis #0 tabs calcium carbonate 500 mg (2.5 x 200 mg calcium (500 02/21/25 02/21/25 Rx mg)) PO TIDCM supplement #0 tabs ergocalciferol (vitamin D2) 1,250 1,250 mcg PO Q7D sup plement #0 caps 02/21/25 Unknown Rx mcg (50,000 unit) capsule (Vitamin D2) melatonin 10 mg sublingual tablet 10 mg PO QHS PRN PRN Insomnia #0 02/21/25 02/20/25 Rx tabs Allergy/AdvReac Type Severity Reaction Status Date / Time Penicillins Allergy Intermediate Hives Verified 02/15/25 13:14 Family History Father Myocardial infarction Hypertension Heart disease Sister Breast cancer Mother CVA (cerebral vascular accident) Surgical History History of open reduction and internal fixation (ORIF) procedure Hx of right cataract extraction Hx of left cataract extraction Hx of esophagogastroduodenoscopy Hx of colonoscopy History of ERCP S/P tubal ligation History of thoracic surgery H/O thyroidectomy History of cholecystectomy Hx of appendectomy Social History household members: other details: with son Ash Smoking Status: Never smoker alcohol intake: never substance use type: does not use what type of physical activity do you participate in: none do you feel safe at home: Yes ROS Constitutional Constitutional: Reports weakness; Denies anorexia, change in weight, chills, fatigue, fever(s) or night sweats Eyes Eyes: Denies blurry vision, change in vision, eye pain or loss of vision ENT HEENT: Denies abnormal hearing, dysphagia, headache(s), hearing loss, nasal congestion or sore throat Cardiovascular Cardiovascular: Reports edema, racing heartbeat and other Details: she gets palpitations and feels like her heart is racing. ; Denies chest pain, dyspnea on exertion, lightheadedness, orthopnea, palpitations, paroxysmal nocturnal dyspnea or syncope Respiratory/Chest Respiratory/Chest: Denies cough, dyspnea, shortness of breath at rest, shortnessof breath with exertion or wheezing Gastrointestinal Gastrointestinal: Reports constipation; Denies abdominal pain, diarrhea, dyspepsia, hematemesis, hematochezia, nausea or vomiting Genitourinary Genitourinary: Reports urinary incontinence; Denies dysuria, hematuria, nocturia, urinary frequency, urinary hesitancy or urinary urgency Musculoskeletal Musculoskeletal: Reports arthralgias, difficulty walking, joint pain and other Details: pain in theleft hip, thigh and knee due to left hip intertrochanteric fracture-status post cephalomedullary nail ; Denies back pain, joint swelling or neck pain Neurologic Neurologic: Reports confusion, memory loss, weakness and other Details: per her son prior to Sinemet she had a festinating gait, masked facies and tremors. This has improved with addition of Sinemet to her drug regimen. ; Denies disequilibrium, dizziness, focal weakness, headache(s), paresthesias, seizures or tremor(s) Psychiatric Psychiatric: Denies anxiety, depression, homicidal ideation or suicidal ideation Endocrine Endocrinology: Denies change in body appearance, polydipsia or polyuria Hematologic/Lymphatic Hematologic/Lymphatic: Reports easy bruising; Denies easy bleeding or lymphadenopathy Allergic/Immunologic Allergic/Immunologic: Denies rhinitis, eczemia or asthma Vital Signs Vital Signs Vital Signs: 02/21/25 14:46 02/21/25 17:31 02/21/25 17:44 Temperature 98.5 F 98.5 F Temperature Source Temporal Temporal Pulse Rate 85 85 Pulse Strength Respiratory Rate 15 15 Respiratory Effort Normal Non-Labored Respiratory Depth Normal Respiratory Pattern Normal Blood Pressure 157/54 H 157/54 H Blood Pressure Mean 88 88 Blood Pressure Source Monitor Monitor Blood Pressure Position Semi-Fowlers Semi-Fowlers Blood Pressure Location Right Arm Right Arm Pulse Ox 98 Oxygen Delivery Method Room Air Room Air Room Air 02/21/25 19:58 02/21/25 20:00 02/22/25 05:35 Temperature 97.8 F Temperature Source Temporal Pulse Rate 79 Pulse Strength Normal (2+) Respiratory Rate 16 Respiratory Effort Normal Non-Labored Respiratory Depth Normal Respiratory Pattern Normal Blood Pressure 119/65 Blood Pressure Mean 83 Blood Pressure Source Monitor Blood Pressure Position Semi-Fowlers Blood Pressure Location Right Arm Pulse Ox 96 Oxygen Delivery Method Room Air Room Air 02/22/25 09:19 Temperature Temperature Source Pulse Rate Pulse Strength Normal (2+) Respiratory Rate Respiratory Effort Respiratory Depth Respiratory Pattern Blood Pressure Blood Pressure Mean Blood Pressure Source Blood Pressure Position Blood Pressure Location Pulse Ox Oxygen Delivery Method Weight Weight: 139 lb 1.787 oz Body Mass Index (BMI) 25.4 Physical Exam Const alert and no apparent distress General Appearance: cooperative and well kempt HEENT HEENT Narrative: MM are dry and she has many missing teeth. She denies trouble chewing. No thrush. Denies mouth pain. Eyes PERRL, EOMs intact bilaterally, conjunctivae normal and no scleral icterus Eyes Narrative: No discharge from the eyes Neck supple Neck Narrative: loud R carotid bruit Resp normal respiratory effort, normal air movement, no use of accessory muscles and clear to auscultation bilaterally Resp Narrative: no cough Effort and Inspection: able to speak in complete sentences and symmetric chest movement Cardio regular rate, regular rhythm, no rub and no gallops Cardio Narrative: She has a 3/6 systolic murmur at the second right intercostal space with radiation to the left ventricular outflow tract, lower left sternal border and apex. No ectopy. GI normal to inspection, nondistended, normoactive bowel sounds, soft to palpation and non-tender GI Narrative: No guarding with palpation. no CVA tenderness Narrative: Has urinary incontinence but, she denies dysuria. PVR's X 2 are negative for retention. Extremity Extremity Narrative: Has some ankle edema, L>R. No pretibial edema. CAMILA hose are in place. Neuro Neuro Narrative: She has a mild pill rolling tremor with the R hand. I described a festinating gait to Ash and he tells me she had this prior to Sinemet. She has better facial expression since she was started on Sinemet. Oriented to person and place. No rigidity. PT did not find she had a festinating disease. She has no masked facies today. Poor memory and some confusion. Denies having PD but, tells me that she is on Sinemet......does not know what this medication is for. Speech is not slurred. She denies trouble swallowing. Tells me she does not cough when she is eating or drinking. Psych cooperative and affect normal Results Lab / Micro Data 02/22/25 06:05 02/22/25 06:05 Labs: Laboratory Results - last 24 hr 02/21/25 16:04: POC Glucose 242 H 02/21/25 21:56: POC Glucose 192 H 02/22/25 06:05: WBC 8.2, RBC 2.70 L, Hgb 8.5 L, Hct 24.1 L, MCV 89.3, MCH 31.5, MCHC 35.3, RDW Std Deviation 49.5 H, RDW Coeff of Cody 15.4 H, Plt Count 282, MPV8.8, Immature Gran % (Auto) 0.700, Neut% (Auto) 65.0, Lymph % (Auto) 23.7, [place]% (Auto) 7.2, Eos % (Auto) 3.0, Baso % (Auto) 0.4, AbsoluteNeuts (auto) 5.3, Absolute Lymphs (auto) 1.94, Nucleated RBC % 0, Sodium 131 L, Potassium 4.1, Chloride 99, Carbon Dioxide 23.6, Anion Gap 8, BUN 15, Creatinine 0.47 L, Estim Creat Clear Calc 51.41, Est GFR (MDRD) Non-Af 98, BUN/Creatinine Ratio 32.5 H, Glucose 203 H, Calcium 8.6, Phosphorus 3.2, Magnesium 1.5, Total Bilirubin 1.00, AST 31, ALT < 5, Alkaline Phosphatase 106 H, Total Protein 5.6 L, Albumin 2.6 L,Globulin 3.0, Albumin/Globulin Ratio 0.9 02/22/25 06:09: POC Glucose 189 H Assessment & Plan Assessment/Plan (1) Debility: (2) Intertrochanteric fracture of left femur: QUALIFIERS: Encounter type: initial encounter Fracture type: closed Fracture alignment: displaced Qualified Code(s): S72.142A - Displaced intertrochanteric fracture of left femur, initial encounter for closed fracture (3) History of open reduction and internal fixation (ORIF) procedure: (4) Hyponatremia: (5) Anemia: (6) Vitamin D deficiency: (7) Hypothyroidism: (8) H/O thyroidectomy: (9) Diabetes mellitus, type 2: (10) Parkinson's disease: (11) Cognitive dysfunction: (12) Constipation: (13) Occult blood in stools: (14) History of hemorrhoids: (15) Murmur, cardiac: (16) Hyperlipemia: (17) Right carotid bruit: PLAN: Plan PLAN PT for gait stability OT for ADL's ST for evaluation - for cognition. Analgesics as needed - pt not able to ask for pain medications when she is in pain due to confusion(new? or chronic) so will need to schedule pain meds. Bowel protocol Fall precautions Assess for Anxiety/Depression GI prophylaxis -not necessary at this time. She denies nausea/vomiting/epigastric pain/heartburn. DVT prophylaxis with Eliquis 2.5 mg twice daily Follow up with Dr. Santana, Dr. Chacon, possibly with neurology following DC from [facility] AM lab including CMP, CBC, Mag and Phos-personally reviewed Order iron, total iron-binding capacity, percent iron saturation and ferritin due to history of iron deficiency anemia in the past with Hemoccult positive stool. Why is she on Sinemet? she was not on this medication in 2021 when she was in the hospital for acute pancreatitis secondary to choledocholithiasis. Urine sodium, urine and serum osmolality Needs a BMD study in the not too distant future. Suspect she has osteoporosis. check with her son to get a complete med list. Melatonin 1.5 mg nightly. Hemoccult stool Obtain an accurate med list from Dr. Santana. - she has only been taking Sinemet and losartan? Was on diabetic medications and levothyroxine in 2021 per the DC summary. She would not take the meds so they were discontinued. No signs of CHF. Consider a Cartotid US going forward for the loud R carotid bruit. Consider ECHO.......May have developed some stenosis of the aortic valvesince the ECHO in 2017 that showed some calcification of the AV. Charges/Coding Visit Charges Inpatient E&M: 80870 Init Hosp L2 02/23/25 1242 Cosigner Signature (if applicable): CC: Dr. Matt Chacon MD; Dr. Katie Bah DO; Dr. Candelario Santana MD~ Signed [facility]07-03-2025 [facility]07-02-2025 Hospital Discharge instructionsAdditional Instructions 1. WBAT LLE 2. Eliquis 2.5 mg BID x 30 days then stop 3. Dressing changes per ortho 4. Ortho F/U in 2 weeks Date of Discharge: 02/21/25[facility] Work Phone: 1(102) 171-490407-02-2025 Consult note [facility] Medical Records Department [address] [place] [address] Anesthesia Postop Eval II 02/19/25 0958 MR#: [id number] Acct: [id number] Name: SHASHI OSWALD Rep #:[id number] : 1945 79 From: Bi Zaman MD PCP: Dr. Candelario Santana MD Status:ADM I N Y Race: C Location: [place] [address] Anesthesia Postop Eval I Sum Postop Eval Completion status Anesthesia document: Postop Eval 1 completed: Yes Anesthesia Postop Eval I Summary Anesthesia Postop Eval I Summary: Anesthesia Postop Eval I: Assessment Summary Airway patent Yes 02/16/25 12:50 VESSEL SCRAPPER [email or web address] Spontaneous unlabored Yes 02/16/25 12:50 VESSEL SCRAPPER [email or web address] respirations Mental status Awake,Calm 02/16/25 12:50 VESSEL SCRAPPER [email or web address] nausea No 02/16/25 12:50 VESSEL SCRAPPER [email or web address] Vomiting No 02/16/25 12:50 VESSEL SCRAPPER [email or web address] Anesthesia Postop Eval I: Fluid Summary Crystalloid volume administer 2,400 02/16/25 12:50 VESSEL SCRAPPER [email or web address] (ml) Colloids volume administered ( ml) Blood Product volume administered (ml) Total IV fluid infused 2,400 02/16/25 12:50 VESSEL SCRAPPER [email or web address] Anesthesia Postop Eval I: Summary Notes Anesthesia Complication No 02/16/25 12:50 VESSEL SCRAPPER [email or web address] Anesthesia Complication Comment: Post-operative progress note to receive 2 units 02/16/25 12:50 VESSEL SCRAPPER HELPER.SKOBY of PRBCs, awaiting from blood bank, Dr. Zaman aware of units to be received and pressor requirements during case; currently weaned off and BP stable. Anesthesia: Postop Eval II Evaluation Mental status: Awake and Calm Pain Level: 1 nausea: No Vomiting: No Complications Anesthesia Complication: No 02/19/25 0958 vanessa ALFARO> Date _ Bi Zaman MD Cosigner Signature: Date CC: ~ Signed [facility]07-02-2025 Consult note [facility] Medical Records Department [address] [place] [address] Counseling Note - Pharmacy 02/21/2537 MR#: [id number] Acct: [id number] Name: SHASHI OSWALD Rep #:[id number] : 1945 79 From: Ena Viera PCP: Dr. Candelario Santana MD Status:ADM I N Y Location: [place] [address] Pharmacy IN Med Reconciliation Pharmacy Service has performed discharge medication reconciliation for this patient. The patient's discharge medication list was reviewed for discrepancies and discrepancies were resolved. Medications at Discharge Home Medications carbidopa 25 mg-levodopa 100 mg tablet 1 tab PO TID 02/15/25 losartan 50 mg tablet 50 mg PO DAILY 02/15/25 Held on 02/21/25. Instructions: Until blood pressures are consistently greater than 130 systolic acetaminophen 500 mg tablet 1,000 mg (2 x 500 mg) PO Q8 #0 tabs 02/21/25 apixaban 5 mg tablet (Eliquis) 2.5 mg (1/2 x 5 mg) PO BID #0 tabs 02/21/25 calcium carbonate 500 mg (2.5 x 200 mg calcium (500 mg)) PO TIDCM #0 tabs 02/21/25 ergocalciferol (vitamin D2) 1,250 mcg (50,000 unit) capsule (Vitamin D2) 1,250 mcg PO Q7D #0 caps 02/21/25 melatonin 10 mg sublingual tablet 10 mg PO QHS PRN PRN Insomnia #0 tabs 02/21/25 oxycodone 5 mg tablet 5 mg PO Q4H PRN PRN Pain Score 4-10 1 day #6 tabs 02/21/25 sennosides 8.6 mg-docusate sodium 50 mg tablet (Stimulant Laxative Plus) 2 tab PO BID #0 tabs 02/21/25 02/21/25 0937 Date _ Ena Viera Cosigner Signature (if applicable): Date CC: ~ Signed [facility]07-02-2025 Discharge summary Author Gia Owusu [facility] Note Date/Time February 21, 2025 11:18 am [facility] Medical Records Department [address] [place] [id number] Discharge Summary 02/21/25 0828 MR#: [id number] Acct: [id number] Name: SHASHI OSWADL Rep #:[id number] : 1945 79 From: Gia Owusu DO PCP: Dr. Candelario Santana MD Status:ADM I N Location: [place] [address] Providers Date of Admission: 02/15/25 Date of Discharge: 02/21/25 Primary Care Physician: Dr. Candelario Santana MD Consultations 02/15/25 16:01 Consult: Orthopedics Routine Consulting Provider: Matt Chacon Reason for Consult: left hip fx EMERGENT Consult: No MD Notified: Yes Date Notified: 02/15/25 Time Notified: 15:03 Method of Notification: ED Physician Initiated Reason For Visit: LEFT HIP FRACTURE Diagnosis Discharge Diagnosis (1) Vitamin D deficiency: Status: Acute Code(s): E55.9 - Vitamin D deficiency, unspecified (2) Anemia: Status: Acute Code(s): D64.9 - Anemia, unspecified (3) Intertrochanteric fracture of left femur: Status: Acute Code(s): S72.142A - Displaced intertrochanteric fracture of left femur, initial encounterfor closed fracture Qualifiers: Encounter type: initial encounter Fracture alignment: displaced Fracture type: closed Qualified Code(s): S72.142A - Displaced intertrochanteric fracture of left femur, initial encounter for closed fracture Medications at Discharge Home Medications carbidopa 25 mg-levodopa 100 mg tablet 1 tab PO TID 02/15/25 losartan 50 mg tablet 50 mg PO DAILY 02/15/25 Held on 02/21/25. Instructions: Until blood pressures are consistently greater than 130 systolic acetaminophen 500 mg tablet 1,000 mg (2 x 500 mg) PO Q8 #0 tabs 02/21/25 apixaban 5 mg tablet (Eliquis) 2.5 mg (1/2 x 5 mg) PO BID #0 tabs 02/21/25 calcium carbonate 500 mg (2.5 x 200 mg calcium (500 mg)) PO TIDCM #0 tabs 02/21/25 ergocalciferol (vitamin D2) 1,250 mcg (50,000 unit) capsule (Vitamin D2) 1,250 mcg PO Q7D #0 caps 02/21/25 melatonin 10 mg sublingual tablet 10 mg PO QHS PRN PRN Insomnia #0 tabs 02/21/25 oxycodone 5 mg tablet 5 mg PO Q4H PRN PRN Pain Score 4-10 1 day #6 tabs 02/21/25 sennosides 8.6 mg-docusate sodium 50 mg tablet (Stimulant Laxative Plus) 2 tab PO BID #0 tabs 02/21/25 Hospital Course Operations None Procedures - (Femur x-ray/pelvic x-rays) Summary of Care Provided Minutes Spent on Discharge: 38 Hospital Course: Mrs. Oswald is a 79-year-old white female who presented to the emergency department [facility] on 02/15/2025 with a chief complaint of left hip pain after mechanical fall. Patient fell last Wednesday prior to presentation and her sons helped her get to the couch but she had not been able to get up off the couch since that point in time. Friends and family had been bringing her foods and water and drinks but due to persistent pain she was not able to get up and called EMS. Vital signs at the time of presentation showed atemperature of 98.3, heart rate 98, respiratory 16, blood pressure was 105/74 and pulse ox was 100% on room air. CBC shows a anemia with a hemoglobin of 8.7 (baseline unknown) and her BMP was overtly unremarkable. She does have hyperglycemia with a blood sugar of 155. Her UA was not consistent with infection. Femoral x-ray showed comminuted impacted left trochanteric fracture. She was admitted to the medical floor orthopedic consult was placed. She was taken to the OR on 02/16/2025 at which time a left femur cephalomedullary nailingwith a long gamma nail and ORIF was performed. Patient did extremely well postoperatively. Since she was anemic preoperatively she was given 2 units of packed red blood cells. Her hemoglobin has remained stable throughout her hospital course. She was tested guaiac positive however she had persistently stable hemoglobin so this was not pursued any further at this time and I do recommend outpatient follow-up if this stent anemia after recovery. She was started on Eliquis 2.5 mg p.o. twice daily for DVT prophylaxis and is still despite this her hemoglobin remained stable. We did obtain a vitamin D level and it was markedly low at 10 so she was started on ergocalciferol. I recommendshe continue this for 7 weeks with a weekly dose and repeat vitamin D level at the end of that course to reassess. Her Parkinson's disease in conjunction withher hip fracture complicated her case. Rehab was requested and after peer to peer was approved. She is able to be discharged to rehab on 03/13/2025 for ongoing physical therapy, Occupational Therapy and speech therapy if needed. Her blood pressures are stable but we have been holding her losartan. Will continue to hold this until her systolic blood pressure is consistently greater than 130. She will need to follow-up with orthopedic surgery in 2 weeks. She is weightbearing as tolerated and dressing changes are per orthopedic recommendations. Discharge diagnoses: Left intertrochanteric fracture Postop day 5 left cephalomedullary nail with long gamma nail Anemia Vitamin D deficiency DM-2 Parkinson disease Essential hypertension Euthyroid sick syndrome Falls Physical Exam Const alert, no apparent distress, average body habitus and well nourished Constitutional Narrative: Elderly, white female, sitting up in a chair at the bedside, nursing at bedside,appears comfortable, nontoxic, oriented times self and place but not time General Appearance: cooperative, comfortable, well kempt and well developed Orientation / Consciousness: awake, oriented to person and oriented to place; Negative for oriented to time HEENT normocephalic, head/scalp atraumatic, hearing grossly normal bilaterally and moist oral mucous membranes HEENT Narrative: Dentures in place, Mallampati 2, no thrush Eyes conjunctivae normal Eyes Narrative: No scleral icterus Neck supple Neck Narrative: Trachea midline Resp normal respiratory effort, no retractions, no use of accessory muscles and clearto auscultation bilaterally Auscultation: Negative for rales, rhonchi or wheezes Cardio regular rate, regular rhythm, S1 normal heart sound, S2 normal heart sound, no murmurs, no rub, no gallops and no clicks GI normal to inspection, nondistended, normoactive bowel sounds, soft to palpation and non-tender Extremity no clubbing, cyanosis or edema Extremity Narrative: Pedal and radial pulses are 2+ Skin skin turgor normal and no jaundice Skin Narrative: Incision left hip is clean dry intact with bandage in place and no bloody drainage on bandages Neuro moves all extremities and no focal motor deficits Neuro Narrative: Left-sided weakness due to pain Speech: speech normal Psych affect normal Psych Narrative: Interacts appropriately, very pleasant Weight / BMI Weight Weight: 57.289 kg Body Mass Index (BMI) 23.8 ABG / Lab / Microbiology Data 02/21/25 08:25 02/19/25 04:53 Laboratory: Laboratory Results - last 24 hr 02/20/25 10:16: Hgb 8.9 L 02/20/25 11:24: POC Glucose 287 H 02/20/25 16:41: POC Glucose 180 H 02/20/25 21:07: POC Glucose 209 H 02/21/25 06:28: POC Glucose 212 H 02/21/25 08:25: Hgb 8.6 L D/C Instructions Discharge Diet: 1800 Calorie Control Diet Discharge Activity: Return to Normal Activity and Use Walker Weight Bearing Status: Weight bearing as tolerated Keep extremity elevated above heart level: Operative Extremity Remove Dressing in: per ortho DC O2, CPAP, BIPAP Needs Home O2 Discharge instructions: No Please Follow Up With: Matt Chacon MD When: 2 weeks Meaningful Use Info Meaningful Use Meaningful Use Diagnoses (Choose all that apply): None applicable Ischemic Stroke Statin Dosing Therapy Reference: STATIN DOSE THERAPY REFERENCE: * Patients > 75 years receive moderate or high dose statin therapy. * Patients 75 years or YOUNGER should receive HIGH intensity statin dose unless contraindicated. You will be required to document reason for non-treatment if statin daily dose does not meet guidelines. HIGH DOSE STATIN THERAPY DAILY Atorvastatin > than or = to 40 mg Rosuvastatin > than or = to 20 mg Amlodipine + Atorvastatin > than or = to 2.5/40 mg Ezetimibe + Simvastatin 10/80 mg Simvastatin 80mg Discharge Plan Admission Admit Date/Time: 02/15/25 14:56 Primary Reason for Your Visit: Left hip pain Attending Provider: Gia Owusu Primary Care Provider: Candelario Santana Chi Consulting Providers: Matt Chacon; Lakeshia Mas; Baldev Berry Instructions Additional Instructions / Restrictions: 1. WBAT LLE 2. Eliquis 2.5 mg BID x 30 days then stop 3. Dressing changes per ortho 4. Ortho F/U in 2 weeks Discharge Orders/Prescriptions Prescriptions: New acetaminophen 500 mg Tablet 1,000 mg PO Q8 Qty: 0 0RF ergocalciferol (vitamin D2) [Vitamin D2] 1,250 mcg (50,000 unit) Capsule 1,250 mcg PO Q7D Qty: 0 0RF Eliquis 5 mg Tablet 2.5 mg PO BID Qty: 0 0RF sennosides-docusate sodium [Stimulant Laxative Plus] 8.6-50 mg Tablet 2 tab PO BID Qty: 0 0RF calcium carbonate 200 mg calcium (500 mg) Tablet,Chewable 500 mg PO TIDCM Qty: 0 0RF oxycodone 5 mg Tablet 5 mg PO Q4H PRN PRN (Reason: Pain Score 4-10) 1 Days Qty: 6 0RF melatonin 10 mg Tablet, Sublingual 10 mg PO QHS PRN PRN (Reason: Insomnia) Qty: 0 0RF Continued carbidopa-levodopa 25-100 mg tablet 1 tab PO TID Held losartan 50 mg tablet 50 mg PO DAILY Hold Instructions: Until blood pressures are consistently greater than 130 systolic Referrals / Follow Up: Candelario Santana Chi, MD [Primary Care Provider] - In 1 Week (After discharge) Disposition Disposition (needs filled in before D/C Order can be placed): Inpatient Rehab Unit/Facility Charges/Coding Visit Charges Inpatient E&M: 28111 Disch Hosp >30min 02/21/25 1118 <Electronically signed by Gia Owusu DO> Cosigner Signature (if applicable): CC: Dr. Matt Chacon MD; Dr. Gia Owusu DO; Dr. Candelario Santana MD~ Signed [facility] Work Phone: 1(789) 794-307307-02-2025 Consult note Author Ena Viera [facility] Note Date/Time February 21, 2025 1:55p m [facility] Medical Records Department [address] [place] [address] Counseling Note - Pharmacy 02/21/25 0937 MR#: [id number] Acct: [id number] Name: SHASHI OSWALD Rep #:[id number] : 1945 79 From: Ena Viera PCP: Dr. Candelario Santana MD Status:ADM I N Y Location: [place] [address] Pharmacy IN Med Reconciliation Pharmacy Service has performed discharge medication reconciliation for this patient. The patient's discharge medication list was reviewed for discrepancies and discrepancies were resolved. Medications at Discharge Home Medications carbidopa 25 mg-levodopa 100 mg tablet 1 tab PO TID 02/15/25 losartan 50 mg tablet 50 mg PO DAILY 02/15/25 Held on 02/21/25. Instructions: Until blood pressures are consistently greater than 130 systolic acetaminophen 500 mg tablet 1,000 mg (2 x 500 mg) PO Q8 #0 tabs 02/21/25 apixaban 5 mg tablet (Eliquis) 2.5 mg (1/2 x 5 mg) PO BID #0 tabs 02/21/25 calcium carbonate 500 mg (2.5 x 200 mg calcium (500 mg)) PO TIDCM #0 tabs 02/21/25 ergocalciferol (vitamin D2) 1,250 mcg (50,000 unit) capsule (Vitamin D2) 1,250 mcg PO Q7D #0 caps 02/21/25 melatonin 10 mg sublingual tablet 10 mg PO QHS PRN PRN Insomnia #0 tabs 02/21/25 oxycodone 5 mg tablet 5 mg PO Q4H PRN PRN Pain Score 4-10 1 day #6 tabs 02/21/25 sennosides 8.6 mg-docusate sodium 50 mg tablet (Stimulant Laxative Plus) 2 tab PO BID #0 tabs 02/21/25 02/21/25 0937 <Electronically signed by Ena Viera> Date _ Ena Viera Cosigner Signature (if applicable): Date CC: ~ Signed [facility] Work Phone: 1(127) 118-536707-02-2025 Discharge summary [facility] Medical Records Department [address] [place] [address] Discharge Summary 02/21/25827 MR#: [id number] Acct: [id number] Name: SHASHI OSWALD Rep #:[id number] : 1945 79 From: Gia Owusu DO PCP: Dr. Candelario Santana MD Status:ADM I N Location: [place] [address] Providers Date of Admission: 02/15/25 Date of Discharge: 02/21/25 Primary Care Physician: Dr. Candelario Santana MD Consultations 02/15/25 16:01 Consult: Orthopedics Routine Consulting Provider: Matt Chacon Reason for Consult: left hip fx EMERGENT Consult: No MD Notified: Yes Date Notified: 02/15/25 Time Notified: 15:03 Method of Notification: ED Physician Initiated Reason For Visit: LEFT HIP FRACTURE Diagnosis Discharge Diagnosis (1) Vitamin D deficiency: Status: Acute Code(s): E55.9 - Vitamin D deficiency, unspecified (2) Anemia: Status: Acute Code(s): D64.9 - Anemia, unspecified (3) Intertrochanteric fracture of left femur: Status: Acute Code(s): S72.142A - Displaced intertrochanteric fracture of left femur, initial encounterfor closed fracture Qualifiers: Encounter type: initial encounter Fracture alignment: displaced Fracture type: closed Qualified Code(s): S72.142A - Displaced intertrochanteric fracture of left femur, initial encounter for closed fracture Medications at Discharge Home Medications carbidopa 25 mg-levodopa 100 mg tablet 1 tab PO TID 02/15/25 losartan 50 mg tablet 50 mg PO DAILY 02/15/25 Held on 02/21/25. Instructions: Until blood pressures are consistently greater than 130 systolic acetaminophen 500 mg tablet 1,000 mg (2 x 500 mg) PO Q8 #0 tabs 02/21/25 apixaban 5 mg tablet (Eliquis) 2.5 mg (1/2 x 5 mg) PO BID #0 tabs 02/21/25 calcium carbonate 500 mg (2.5 x 200 mg calcium (500 mg)) PO TIDCM #0 tabs 02/21/25 ergocalciferol (vitamin D2) 1,250 mcg (50,000 unit) capsule (Vitamin D2) 1,250 mcg PO Q7D #0 caps 02/21/25 melatonin 10 mg sublingual tablet 10 mg PO QHS PRN PRN Insomnia #0 tabs 02/21/25 oxycodone 5 mg tablet 5 mg PO Q4H PRN PRN Pain Score 4-10 1 day #6 tabs 02/21/25 sennosides 8.6 mg-docusate sodium 50 mg tablet (Stimulant Laxative Plus) 2 tab PO BID #0 tabs 02/21/25 Hospital Course Operations None Procedures - (Femur x-ray/pelvic x-rays) Summary of Care Provided Minutes Spent on Discharge: 38 Hospital Course: Mrs. Oswald is a 79-year-old white female who presented to the emergency department [facility] on 02/15/2025 with a chief complaint of left hip pain after mechanical fall. Patient fell last Wednesday prior to presentation and her sons helped her get to the couch but she had not been able to get up off the couch since that point in time. Friends and family had been bringing her foods andwater and drinks but due to persistent pain she was not able to get up and called EMS. Vital signs at the time of presentation showed atemperature of 98.3, heart rate 98, respiratory 16, blood pressure was 105/74 and pulse ox was 100% on room air. CBC shows a anemia with a hemoglobin of 8.7 (baseline unknown) and her BMP was overtly unremarkable. She does have hyperglycemia with a blood sugar of 155. Her UA was not consistent with infection. Femoral x-ray showed comminuted impacted left trochanteric fracture. She was admitted to the medical floor orthopedic consult was placed. She was taken to the OR on 02/16/2025 at which time a left femur cephalomedullary nailingwith a long gamma nail and ORIF was performed. Patient did extremely well postoperatively. Since she was anemic preoperatively she was given 2 units of packed red blood cells. Her hemoglobin has remained stable throughout her hospital course. She was tested guaiac positive however she had persistently stable hemoglobin so this was not pursued any further at this time and I do recommend outpatient follow-up if this stent anemia after recovery. She was started on Eliquis 2.5 mg p.o. twice daily for DVT prophylaxis and is still despite this her hemoglobin remained stable. We did obtain a vitamin D level and it was markedlylow at 10 so she was started on ergocalciferol. I recommendshe continue this for 7 weeks with a weekly dose and repeat vitamin D level at the end of that course to reassess. Her Parkinson's disease in conjunction withher hip fracture complicated her case. Rehab was requested and after peer to peer was approved. She is able to be discharged to rehab on 03/13/2025 for ongoing physical therapy, Occupational Therapy and speech therapy if needed. Her blood pressures are stable but we have been holding her losartan. Will continue to hold this until her systolic blood pressure is consistently greaterthan 130. She will need to follow-up with orthopedic surgery in 2 weeks. She is weightbearing as tolerated and dressing changes are per orthopedic recommendations. Discharge diagnoses: Left intertrochanteric fracture Postop day 5 left cephalomedullary nail with long gamma nail Anemia Vitamin D deficiency DM-2 Parkinson disease Essential hypertension Euthyroid sick syndrome Falls Physical Exam Const alert, no apparent distress, average body habitus and well nourished Constitutional Narrative: Elderly, white female, sitting up in a chair at the bedside, nursing at bedside,appears comfortable, nontoxic, oriented times self and place but not time General Appearance: cooperative, comfortable, well kempt and well developed Orientation / Consciousness: awake, oriented to person and oriented to place; Negative for orientedto time HEENT normocephalic, head/scalp atraumatic, hearing grossly normal bilaterally and moist oral mucous membranes HEENT Narrative: Dentures in place, Mallampati 2, no thrush Eyes conjunctivae normal Eyes Narrative: No scleral icterus Neck supple Neck Narrative: Trachea midline Resp normal respiratory effort, no retractions, no use of accessory muscles and clearto auscultation bilaterally Auscultation: Negative for rales, rhonchi or wheezes Cardio regular rate, regular rhythm, S1 normal heart sound, S2 normal heart sound, no murmurs, no rub, no gallops and no clicks GI normal to inspection, nondistended, normoactive bowel sounds, soft to palpation and non-tender Extremity no clubbing, cyanosis or edema Extremity Narrative: Pedal and radial pulses are 2+ Skin skin turgor normal and no jaundice Skin Narrative: Incision left hip is clean dry intact with bandage in place and no bloody drainage on bandages Neuro moves all extremities and no focal motor deficits Neuro Narrative: Left-sided weakness due to pain Speech: speech normal Psych affect normal Psych Narrative: Interacts appropriately, very pleasant Weight / BMI Weight Weight: 57.289 kg Body Mass Index (BMI) 23.8 ABG / Lab / Microbiology Data 02/21/25 08:25 02/19/25 04:53 Laboratory: Laboratory Results - last 24 hr 02/20/25 10:16: Hgb 8.9 L 02/20/25 11:24: POC Glucose 287 H 02/20/25 16:41: POC Glucose 180 H 02/20/25 21:07: POC Glucose 209 H 02/21/25 06:28: POC Glucose 212 H 02/21/25 08:25: Hgb 8.6 L D/C Instructions Discharge Diet: 1800 Calorie Control Diet Discharge Activity: Return to Normal Activity and Use Walker Weight Bearing Status: Weight bearing as tolerated Keep extremity elevated above heart level: Operative Extremity Remove Dressing in: per ortho DC O2, CPAP, BIPAP Needs Home O2 Discharge instructions: No Please Follow Up With: Matt Chacon MD When: 2 weeks Meaningful Use Info Meaningful Use Meaningful Use Diagnoses (Choose all that apply): None applicable Ischemic Stroke Statin Dosing Therapy Reference: STATIN DOSE THERAPY REFERENCE: * Patients > 75 years receive moderate or high dose statin therapy. * Patients 75 years or YOUNGER should receive HIGH intensity statin dose unless contraindicated. You will be required to document reason for non-treatment if statin daily dose does not meet guidelines. HIGH DOSE STATIN THERAPY DAILY Atorvastatin > than or = to 40 mg Rosuvastatin > than or = to 20 mg Amlodipine + Atorvastatin > than or = to 2.5/40 mg Ezetimibe + Simvastatin 10/80 mg Simvastatin 80mg Discharge Plan Admission Admit Date/Time: 02/15/25 14:56 Primary Reason for Your Visit: Left hip pain Attending Provider: Gia Owusu Primary Care Provider: Candelario Santana [employer] Providers: Matt Chacon; Lakeshia Mas; Baldev Berry Instructions Additional Instructions / Restrictions: 1. WBAT LLE 2. Eliquis 2.5 mg BID x 30 days then stop 3. Dressing changes per ortho 4. Ortho F/U in 2 weeks Discharge Orders/Prescriptions Prescriptions: New acetaminophen 500 mg Tablet 1,000 mg PO Q8 Qty: 0 0RF ergocalciferol (vitamin D2) [Vitamin D2] 1,250 mcg (50,000 unit) Capsule 1,250 mcg PO Q7D Qty: 0 0RF Eliquis 5 mg Tablet 2.5 mg PO BID Qty: 0 0RF sennosides-docusate sodium [Stimulant Laxative Plus] 8.6-50 mg Tablet 2 tab PO BID Qty: 0 0RF calcium carbonate 200 mg calcium (500 mg) Tablet,Chewable 500 mg PO TIDCM Qty: 0 0RF oxycodone 5 mg Tablet 5 mg PO Q4H PRN PRN (Reason: Pain Score 4-10) 1 Days Qty: 6 0RF melatonin 10 mg Tablet, Sublingual 10 mg PO QHS PRN PRN (Reason: Insomnia) Qty: 0 0RF Continued carbidopa-levodopa 25-100 mg tablet 1 tab PO TID Held losartan 50 mg tablet 50 mg PO DAILY Hold Instructions: Until blood pressures are consistently greater than 130 systolic Referrals / Follow Up: Candelario Santana Chi, MD [Primary Care Provider] - In 1 Week (After discharge) Disposition Disposition (needs filled in before D/C Order can be placed): Inpatient Rehab Unit/Facility Charges/Coding Visit Charges Inpatient E&M: 92650 Disch Hosp >30min 02/21/25 1118 Cosigner Signature (if applicable): CC: Dr. Matt Chacon MD; Dr. Gia Owusu DO; Dr. Candelario Santana MD~ Signed [facility]07[facility]02[facility] Progress note Author Gia Owusu [facility] Note Date/Time February 20, 2025 5:16p m [facility] Medical Records Department [address] [place] [address] Progress Note - Hospitalist 02/20/25 171 MR#: [id number] Acct: [id number] Name: SHASHI OSWALD Rep #:[id number] : 1945 79 From: Gia Owusu DO PCP: Dr. Candelario Santana MD Status:ADM I N Location: MS3 PP205-1 Reason for Visit Reason for Visit: L hip pain after fall Subjective Subjective No complaints. States her pain is well-controlled with the current regimen. Most problematic with initiating movement. Bowels are functioning okay. Objective Data Objective Data Vital Signs: Vital Signs Temp Pulse Resp BP Pulse Ox O2 Del Method O2 Flow Rate 98.7 F 89 18 125/61 H 95 Room Air 2 02/20/25 13:36 02/20/25 13:36 02/20/25 13:36 02/20/25 13:36 02/20/25 13:36 02/20/25 13:36 02/16/25 08:45 Oxygen Flow Rate (L/min) 2 Oxygen Delivery Method Room Air Weight: 57.289 kg Body Mass Index (BMI) 23.8 Intake & Output: Intake and Output for Last 24 Hours 02/18/25 02/19/25 02/20/25 23:59 23:59 23:59 Intake Total 850 / 850 Output Total 700 / 700 550 / 550 Balance 150 / 150 -550 / -550 Lab / Micro Data 02/20/25 10:16 02/19/25 04:53 Labs: Laboratory Results - last 24 hr 02/19/25 21:14: POC Glucose 202 H 02/20/25 06:11: POC Glucose 161 H 02/20/25 06:37: Hgb 8.6 L 02/20/25 10:16: Hgb 8.9 L 02/20/25 11:24: POC Glucose 287 H 02/20/25 16:41: POC Glucose 180 H Physical Exam Const alert, oriented x3, no apparent distress, average body habitus and well nourished Constitutional Narrative: Elderly, white female, sitting up in a chair at the bedside, nursing at bedside,appears comfortable, nontoxic, oriented times self and place but not time HEENT head/scalp atraumatic and moist oral mucous membranes Head and Scalp: normocephalic GI normal to inspection, nondistended, normoactive bowel sounds, soft to palpation and non-tender Extremity no clubbing, cyanosis or edema Extremity Narrative: Pedal and radial pulses are 2+ Skin Skin Narrative: Incision left hip is clean dry intact with bandage in place and no bloody drainage on bandages Assessment & Plan Assessment/Plan (1) Vitamin D deficiency: (2) Anemia: (3) Intertrochanteric fracture of left femur: QUALIFIERS: Encounter type: initial encounter Fracture type: closed Fracture alignment: displaced Qualified Code(s): S72.142A - Displaced intertrochanteric fracture of left femur, initial encounter for closed fracture PLAN: Plan Left intertrochanteric fracture - Postop day 4 left cephalomedullary nail with long gamma nail - Secondary to suspected osteoporosis - Would recommend outpatient DEXA scan - Weightbearing as tolerated per orthopedic surgery - Long-term anticoagulation for DVT prophylaxis per orthopedic surgery with Eliquis x 1 month postop - Continue scheduled Tylenol and as needed oxycodone - PT/OT following - Has been accepted at rehab - [id number] done this evening and patient has been approved by insurance for discharge to rehab per conversation with rehab unit we will plan for discharge tomorrow Acute anemia - Hemoccult was positive but patient is not anticoagulated at baseline and no obvious signs of bleeding - Status post 2 units of packed red blood cells and hemoglobin remains stable despite starting Eliquis - Hemoglobin remained stable repeat a.m. hemoglobin - If further drop may need GI consultation but if stable will refer as an outpatient Vitamin D deficiency - Continue ergocalciferol as ordered DM-2 - Patient is diet controlled - most recent hemoglobin A1c was 7.3 - Continue carb controlled diet Parkinson's disease - Continue home carbidopa levodopa Essential hypertension - Blood pressures were soft postoperatively but now creeping up - If remain elevated through the next 24 hours anticipate being able to restart her home losartan Abnormal TSH - TSH was 7.49 with a normal free T4 at 1.1 - Euthyroid sick syndrome - Outpatient follow-up DVT prophylaxis - Apixaban 2.5 mg p.o. twice daily per orthopedic surgery CODE STATUS -Full code Disposition: 02/18/2025 patient is ready for discharge from a medical standpoint. [id number] done today with insurance company. She has been approved for rehab level of care at discharge. Per discussion with case management we will plan for discharge tomorrow to rehab. Charges/Coding Visit Charges Inpatient E&M: 09752 Subs Hosp L1 02/20/25 1716 <Electronically signed by Gia Owusu DO> Cosigner Signature (if applicable): CC: ~ Signed [facility] Work Phone: 1(961) 194-937607-01-2025 Progress note [facility] Medical Records Department [address] [place] [address] Progress Note - Hospitalist 02/20/25 1713 MR#: [id number] Acct: [id number] Name: SHASHI OSWALD Rep #:[id number] : 1945 79 From: Gia Owusu DO PCP: Dr. Candelario Santana MD Status:ADM I N Location: [place] [address] Reason for Visit Reason for Visit: L hip pain after fall Subjective Subjective No complaints. States her pain is well-controlled with the current regimen. Most problematic with initiating movement. Bowels are functioning okay. Objective Data Objective Data Vital Signs: Vital Signs Temp Pulse Resp BP Pulse Ox O2 Del Method O2 Flow Rate 98.7 F 89 18 125/61 H 95 Room Air 2 02/20/25 13:36 02/20/25 13:36 02/20/25 13:36 02/20/25 13:36 02/20/25 13:36 02/20/25 13:36 02/16/25 08:45 Oxygen Flow Rate (L/min) 2 Oxygen Delivery Method Room Air Weight: 57.289 kg Body Mass Index (BMI) 23.8 Intake & Output: Intake and Output for Last 24 Hours 02/18/25 02/19/25 02/20/25 23:59 23:59 23:59 Intake Total 850 / 850 Output Total 700 / 700 550 / 550 Balance 150 / 150 -550 / -550 Lab / Micro Data 02/20/25 10:16 02/19/25 04:53 Labs: Laboratory Results - last 24 hr 02/19/25 21:14: POC Glucose 202 H 02/20/25 06:11: POC Glucose 161 H 02/20/25 06:37: Hgb 8.6 L 02/20/25 10:16: Hgb 8.9 L 02/20/25 11:24: POC Glucose 287 H 02/20/25 16:41: POC Glucose 180 H Physical Exam Const alert, oriented x3, no apparent distress, average body habitus and well nourished Constitutional Narrative: Elderly, white female, sitting up in a chair at the bedside, nursing at bedside,appears comfortable, nontoxic, oriented times self and place but not time HEENT head/scalp atraumatic and moist oral mucous membranes Head and Scalp: normocephalic GI normal to inspection, nondistended, normoactive bowel sounds, soft to palpation and non-tender Extremity no clubbing, cyanosis or edema Extremity Narrative: Pedal and radial pulses are 2+ Skin Skin Narrative: Incision left hip is clean dry intact with bandage in place and no bloody drainage on bandages Assessment & Plan Assessment/Plan (1) Vitamin D deficiency: (2) Anemia: (3) Intertrochanteric fracture of left femur: QUALIFIERS: Encounter type: initial encounter Fracture type: closed Fracture alignment: displaced Qualified Code(s): S72.142A - Displaced intertrochanteric fracture of left femur, initial encounter for closed fracture PLAN: Plan Left intertrochanteric fracture - Postop day 4 left cephalomedullary nail with long gamma nail - Secondary to suspected osteoporosis - Would recommend outpatient DEXA scan - Weightbearing as tolerated per orthopedic surgery - Long-term anticoagulation for DVT prophylaxis per orthopedic surgery with Eliquis x 1 month postop - Continue scheduled Tylenol and as needed oxycodone - PT/OT following - Has been accepted at rehab - [id number] done this evening and patient has been approved by insurance for discharge to rehab per conversation with rehab unit we will plan for discharge tomorrow Acute anemia - Hemoccult was positive but patient is not anticoagulated at baseline and no obvious signs of bleeding - Status post 2 units of packed red blood cells and hemoglobin remains stable despite starting Eliquis - Hemoglobin remained stable repeat a.m. hemoglobin - If further drop may need GI consultation but if stable will refer as an outpatient Vitamin D deficiency - Continue ergocalciferol as ordered DM-2 - Patient is diet controlled - most recent hemoglobin A1c was 7.3 - Continue carb controlled diet Parkinson's disease - Continue home carbidopa levodopa Essential hypertension - Blood pressures were soft postoperatively but now creeping up - If remain elevated through the next 24 hours anticipate being able to restart her home losartan Abnormal TSH - TSH was 7.49 with a normal free T4 at 1.1 - Euthyroid sick syndrome - Outpatient follow-up DVT prophylaxis - Apixaban 2.5 mg p.o. twice daily per orthopedic surgery CODE STATUS -Full code Disposition: 02/18/2025 patient is ready for discharge from a medical standpoint. Yszo-sw-[id number] done today with insurance company. She has been approved for rehab level of care at discharge. Per discussion with case management we will plan for discharge tomorrow to rehab. Charges/Coding Visit Charges Inpatient E&M: 90548 Subs Hosp L1 02/20/25 1716 Cosigner Signature (if applicable): CC: ~ Signed [facility]06-30-2025 Progress note Author Gia Owusu [facility] Note Date/Time February 19, 2025 4:12 pm [facility] Medical Records Department [address] [place] [address] Progress Note - Hospitalist 02/19/25 1607 MR#: [id number] Acct: [id number] Name: SHASHI OSWALD Rep #:[id number] : 1945 79 From: Gia Owusu DO PCP: Dr. Candelario Santana MD Status:ADM I N Location: [place] [address] Reason for Visit Reason for Visit: Left hip pain Subjective Subjective No complaints. Moving her bowels well. Has been accepted at rehab and awaitingpre-CERT. Objective Data Objective Data Vital Signs: Vital Signs Temp Pulse Resp BP Pulse Ox O2 Del Method O2 Flow Rate 98.3 F 88 17 148/50 H 100 Room Air 2 02/19/25 14:02/19/25 14:02/19/25 14:02/19/25 14:02/19/25 14:02/19/25 14:02/16/25 08:45 Oxygen Flow Rate (L/min) 2 Oxygen Delivery Method Room Air Weight: 57.289 kg Body Mass Index (BMI) 23.8 Intake & Output: Intake and Output for Last 24 Hours 02/17/25 02/18/25 02/19/25 23:59 23:59 23:59 Intake Total 2907.75 / 2907.75 850 / 850 Output Total 1450 / 1450 700 / 700 Balance 1457.75 / 1457.75 150 / 150 Lab / Micro Data 02/19/25 04:53 02/19/25 04:53 Labs: Laboratory Results - last 24 hr 02/18/25 16:23: POC Glucose 187 H 02/18/25 22:16: POC Glucose 196 H 02/19/25 04:53: WBC 10.0, RBC 2.95 L, Hgb 9.1 L, Hct 26.2 L, MCV 88.8, MCH 30.8,MCHC 34.7, RDW Std Deviation 47.0 H, RDW Coeff of Cody 15.2 H, Plt Count 262, MPV9.6, Sodium 134, Potassium 3.7, Chloride 103, Carbon Dioxide 21.3, Anion Gap 10,BUN 12, Creatinine 0.51 L, Estim Creat Clear Calc 44.44 L, Est GFR (MDRD) Non-Af96, BUN/Creatinine Ratio 23.4 H, Glucose 165 H, Calcium 8.4 02/19/25 06:19: POC Glucose 162 H 02/19/25 11:17: POC Glucose 276 H Physical Exam Const alert, no apparent distress, average body habitus and well nourished Constitutional Narrative: Elderly, white female, sitting up in a chair at the bedside, nursing at bedside,appears comfortable, nontoxic, oriented times self and place but not time HEENT head/scalp atraumatic and moist oral mucous membranes HEENT Narrative: No thrush Head and Scalp: normocephalic Resp normal respiratory effort, no retractions, no use of accessory muscles and clearto auscultation bilaterally Auscultation: Negative for rales, rhonchi or wheezes Neuro moves all extremities and no focal motor deficits Speech: speech normal Psych affect normal Psych Narrative: Interacts appropriately Assessment & Plan Assessment/Plan (1) Vitamin D deficiency: (2) Anemia: (3) Intertrochanteric fracture of left femur: QUALIFIERS: Encounter type: initial encounter Fracture type: closed Fracture alignment: displaced Qualified Code(s): S72.142A - Displaced intertrochanteric fracture of left femur, initial encounter for closed fracture PLAN: Plan Left intertrochanteric fracture - Postop day 3 left cephalomedullary nail with long gamma nail - Secondary to suspected osteoporosis - Would recommend outpatient DEXA scan - Weightbearing as tolerated per orthopedic surgery - Long-term anticoagulation for DVT prophylaxis per orthopedic surgery with Eliquis x 1 month postop - Continue scheduled Tylenol and as needed oxycodone - PT/OT following - Has been accepted at rehab - Will need pre-CERT and this is pending Acute anemia - Hemoccult was positive but patient is not anticoagulated at baseline and no obvious signs of bleeding - Status post 2 units of packed red blood cells and hemoglobin remains stable despite starting Eliquis - Repeat AVM hemoglobin to can continue to monitor for stability - If further drop may need GI consultation but if stable will refer as an outpatient Vitamin D deficiency - Continue ergocalciferol as ordered DM-2 - Patient is diet controlled - most recent hemoglobin A1c was 7.3 - Continue carb controlled diet Parkinson's disease - Continue home carbidopa levodopa Essential hypertension - Blood pressures were soft postoperatively but now creeping up - If remain elevated through the next 24 hours anticipate being able to restart her home losartan Abnormal TSH - TSH was 7.49 with a normal free T4 at 1.1 - Euthyroid sick syndrome - Outpatient follow-up DVT prophylaxis - Apixaban 2.5 mg p.o. twice daily per orthopedic surgery CODE STATUS -Full code Disposition: 02/18/2025 patient is ready for discharge from a medical standpoint. Delay in discharge is related to day of the week being Wednesday, precertificationas she has been accepted at rehab for admission. Charges/Coding Visit Charges Inpatient E&M: 81847 Subs Hosp L1 02/19/25 1612 <Electronically signed by Gia Owusu DO> Cosigner Signature (if applicable): CC: ~ Signed [facility] Work Phone: 1(752) 581-804806-30-2025 Progress note [facility] Medical Records Department [address] [place] [address] Progress Note - Hospitalist 02/19/25 1607 MR#: [id number] Acct: [id number] Name: SHASHI OSWALD Rep #:[id number] : 1945 79 From: Gia Owusu DO PCP: Dr. Candelario Santana MD Status:ADM I N Location: [facility] [id number] Reason for Visit Reason for Visit: Left hip pain Subjective Subjective No complaints. Moving her bowels well. Has been accepted at rehab and awaitingpre-CERT. Objective Data Objective Data Vital Signs: Vital Signs Temp Pulse Resp BP Pulse Ox O2 Del Method O2 Flow Rate 98.3 F 88 17 148/50 H 100 Room Air 2 02/19/25 14:02/19/25 14:02/19/25 14:02/19/25 14:02/19/25 14:02/19/25 14:02/16/25 08:45 Oxygen Flow Rate (L/min) 2 Oxygen Delivery Method Room Air Weight: 57.289 kg Body Mass Index (BMI) 23.8 Intake & Output: Intake and Output for Last 24 Hours 02/17/25 02/18/25 02/19/25 23:59 23:59 23:59 Intake Total 2907.75 / 2907.75 850 / 850 Output Total 1450 / 1450 700 / 700 Balance 1457.75 / 1457.75 150 / 150 Lab / Micro Data 02/19/25 04:53 02/19/25 04:53 Labs: Laboratory Results - last 24 hr 02/18/25 16:23: POC Glucose 187 H 02/18/25 22:16: POC Glucose 196 H 02/19/25 04:53: WBC 10.0, RBC 2.95 L, Hgb 9.1 L, Hct 26.2 L, MCV 88.8, MCH 30.8,MCHC 34.7, RDW Std Deviation 47.0 H, RDW Coeff of Cody 15.2 H, Plt Count 262, MPV9.6, Sodium 134, Potassium 3.7, Chloride 103, Carbon Dioxide 21.3, Anion Gap 10,BUN 12, Creatinine 0.51 L, Estim Creat Clear Calc 44.44 L, Est GFR (MDRD) Non-Af96, BUN/Creatinine Ratio 23.4 H, Glucose 165 H, Calcium 8.4 02/19/25 06:19: POC Glucose 162 H 02/19/25 11:17: POC Glucose 276 H Physical Exam Const alert, no apparent distress, average body habitus and well nourished Constitutional Narrative: Elderly, white female, sitting up in a chair at the bedside, nursing at bedside,appears comfortable, nontoxic, oriented times self and place but not time HEENT head/scalp atraumatic and moist oral mucous membranes HEENT Narrative: No thrush Head and Scalp: normocephalic Resp normal respiratory effort, no retractions, no use of accessory muscles and clearto auscultation bilaterally Auscultation: Negative for rales, rhonchi or wheezes Neuro moves all extremities and no focal motor deficits Speech: speech normal Psych affect normal Psych Narrative: Interacts appropriately Assessment & Plan Assessment/Plan (1) Vitamin D deficiency: (2) Anemia: (3) Intertrochanteric fracture of left femur: QUALIFIERS: Encounter type: initial encounter Fracture type: closed Fracture alignment: displaced Qualified Code(s): S72.142A - Displaced intertrochanteric fracture of left femur, initial encounter for closed fracture PLAN: Plan Left intertrochanteric fracture - Postop day 3 left cephalomedullary nail with long gamma nail - Secondary to suspected osteoporosis - Would recommend outpatient DEXA scan - Weightbearing as tolerated per orthopedic surgery - Long-term anticoagulation for DVT prophylaxis per orthopedic surgery with Eliquis x 1 month postop - Continue scheduled Tylenol and as needed oxycodone - PT/OT following - Has been accepted at rehab - Will need pre-CERT and this is pending Acute anemia - Hemoccult was positive but patient is not anticoagulated at baseline and no obvious signs of bleeding - Status post 2 units of packed red blood cells and hemoglobin remains stable despite starting Eliquis - Repeat AVM hemoglobin to can continue to monitor for stability - If further drop may need GI consultation but if stable will refer as an outpatient Vitamin D deficiency - Continue ergocalciferol as ordered DM-2 - Patient is diet controlled - most recent hemoglobin A1c was 7.3 - Continue carb controlled diet Parkinson's disease - Continue home carbidopa levodopa Essential hypertension - Blood pressures were soft postoperatively but now creeping up - If remain elevated through the next 24 hours anticipate being able to restart her home losartan Abnormal TSH - TSH was 7.49 with a normal free T4 at 1.1 - Euthyroid sick syndrome - Outpatient follow-up DVT prophylaxis - Apixaban 2.5 mg p.o. twice daily per orthopedic surgery CODE STATUS -Full code Disposition: 02/18/2025 patient is ready for discharge from a medical standpoint. Delay in dischargeis related to day of the week being Wednesday, precertificationas she has been accepted at rehab for admission. Charges/Coding Visit Charges Inpatient E&M: 49110 Subs Hosp L1 02/19/25 1612 Cosigner Signature (if applicable): CC: ~ Signed [facility]06-30-2025 Progress note Author Matt Chacon [facility] Note Date/Time February 19, 2025 1:27 pm [facility] Medical Records Department [address] [place] [place] [address] Progress Note - Orthopedic 02/19/25 1317 MR#: [id number] Acct: [id number] Name: SHASHI OSWALD Rep #:[id number] : 1945 79 From: Matt Chacon MD PCP: Dr. Candelario Santana MD Status:ADM I N Location: [place] [address] Documented by User: LEONIE Delaney 02/19/25 13:22 Subjective Subjective Postop day 3 status post left hip long gamma nail for IT plus subtrochanteric fracture. Patient doing well. Pain well-controlled. Dressings dry. Patient continues to work with PT/OT, using walker for ambulation. Plan to go to rehab after discharge from floor. Objective Data Objective Data Vital Signs: Vital Signs Temp Pulse Resp BP Pulse Ox O2 Del Method O2 Flow Rate 98.3 F 84 16 99/66 98 Room Air 2 02/19/25 09:03 02/19/25 09:03 02/19/25 09:03 02/19/25 09:03 02/19/25 09:03 02/19/25 09:03 02/16/25 08:45 Oxygen Flow Rate (L/min) 2 Oxygen Delivery Method Room Air Weight: 126 lb 4.8 oz Body Mass Index (BMI) 23.8 Intake & Output: Intake and Output for Last 24 Hours 02/17/25 02/18/25 02/19/25 23:59 23:59 23:59 Intake Total 2907.75 / 2907.75 850 / 850 Output Total 1450 / 1450 700 / 700 Balance 1457.75 / 1457.75 150 / 150 Lab / Micro Data 02/19/25 04:53 02/19/25 04:53 Labs: Laboratory Results - last 24 hr 02/18/25 16:23: POC Glucose 187 H 02/18/25 22:16: POC Glucose 196 H 02/19/25 04:53: WBC 10.0, RBC 2.95 L, Hgb 9.1 L, Hct 26.2 L, MCV 88.8, MCH 30.8,MCHC 34.7, RDW Std Deviation 47.0 H, RDW Coeff of Cody 15.2 H, Plt Count 262, MPV9.6, Sodium 134, Potassium 3.7, Chloride 103, Carbon Dioxide 21.3, Anion Gap 10,BUN 12, Creatinine 0.51 L, Estim Creat Clear Calc 44.44 L, Est GFR (MDRD) Non-Af96, BUN/Creatinine Ratio 23.4 H, Glucose 165 H, Calcium 8.4 02/19/25 06:19: POC Glucose 162 H 02/19/25 11:17: POC Glucose 276 H Physical Exam Narrative Dressing?CDI. Distal neurovascular exam is intact in left lower extremity. Const alert, oriented x3 and no apparent distress Assessment & Plan Assessment/Plan (1) Intertrochanteric fracture of left femur: QUALIFIERS: Encounter type: initial encounter Fracture alignment:displaced Fracture type: closed Qualified Code(s): S72.142A - Displaced intertrochanteric fracture of left femur, initial encounter for closed fracture (2) Status post hip surgery: PLAN: Plan Postop day 3 status post left hip ORIF of IT plus subtrochanteric fracture with long gamma nailing. Patient doing well. Pain well-controlled. Weightbearing as tolerated. PT OT ambulation. Discharge to rehab. Documented by User: Dr. Matt Chacon MD 02/19/25 13:27 Objective Data Lab / Micro Data 02/19/25 04:53 02/19/25 04:53 Assessment & Plan Assessment/Plan (1) Intertrochanteric fracture of left femur: QUALIFIERS: Encounter type: initial encounter Fracture alignment:displaced Fracture type: closed Qualified Code(s): S72.142A - Displaced intertrochanteric fracture of left femur, initial encounter for closed fracture (2) Status post hip surgery: PLAN: Plan Postop day 3 status post left hip ORIF of IT plus subtrochanteric fracture with long gamma nailing. Patient doing well. Pain well-controlled. Hemoglobin back to 9+. Eliquis for DVT prophylaxis Weightbearing as tolerated. PT OT ambulation. Discharge to rehab, waiting for placement. Follow-up in clinic in 2 weeks for staple removal. Orthopedics will sign off. Please reach out for questions or concerns. 02/19/25 1327 <Electronically signed by Matt Chacon MD> Cosigner Signature (if applicable): CC: ~ Signed [facility] Work Phone: 1(225) 773-268106-30-2025 Progress note [facility] Medical Records Department [address] [place] [address] Progress Note - Orthopedic 02/19/25 1317 MR#: [id number] Acct: [id number] Name: SHASHI OSWALD Rep #:[id number] : 1945 79 From: Matt Chacon MD PCP: Dr. Candelario Santana MD Status:ADM I N Location: [place] [address] Documented by User: LEONIE Delaney 02/19/25 13:22 Subjective Subjective Postop day 3 status post left hip long gamma nail for IT plus subtrochanteric fracture. Patient doing well. Pain well-controlled. Dressings dry. Patient continues to work with PT/OT, using walker for ambulation. Plan to go to rehab after discharge from floor. Objective Data Objective Data Vital Signs: Vital Signs Temp Pulse Resp BP Pulse Ox O2 Del Method O2 Flow Rate 98.3 F 84 16 99/66 98 Room Air 2 02/19/25 09:03 02/19/25 09:03 02/19/25 09:03 02/19/25 09:03 02/19/25 09:03 02/19/25 09:03 02/16/25 08:45 Oxygen Flow Rate (L/min) 2 Oxygen Delivery Method Room Air Weight: 126 lb 4.8 oz Body Mass Index (BMI) 23.8 Intake & Output: Intake and Output for Last 24 Hours 02/17/25 02/18/25 02/19/25 23:59 23:59 23:59 Intake Total 2907.75 / 2907.75 850 / 850 Output Total 1450 / 1450 700 / 700 Balance 1457.75 / 1457.75 150 / 150 Lab / Micro Data 02/19/25 04:53 02/19/25 04:53 Labs: Laboratory Results - last 24 hr 02/18/25 16:23: POC Glucose 187 H 02/18/25 22:16: POC Glucose 196 H 02/19/25 04:53: WBC 10.0, RBC 2.95 L, Hgb 9.1 L, Hct 26.2 L, MCV 88.8, MCH 30.8,MCHC 34.7, RDW Std Deviation 47.0 H, RDW Coeff of Cody 15.2 H, Plt Count 262, MPV9.6, Sodium 134, Potassium 3.7, Chloride 103, Carbon Dioxide 21.3, Anion Gap 10,BUN 12, Creatinine 0.51 L, Estim Creat Clear Calc 44.44 L, Est GFR (MDRD) Non-Af96, BUN/Creatinine Ratio 23.4 H, Glucose 165 H, Calcium 8.4 02/19/25 06:19: POC Glucose 162 H 02/19/25 11:17: POC Glucose 276 H Physical Exam Narrative Dressing?CDI. Distal neurovascular exam is intact in left lower extremity. Const alert, oriented x3 and no apparent distress Assessment & Plan Assessment/Plan (1) Intertrochanteric fracture of left femur: QUALIFIERS: Encounter type: initial encounter Fracture alignment:displaced Fracture type: closed Qualified Code(s): S72.142A - Displaced intertrochanteric fracture of left femur, initial encounter for closed fracture (2) Status post hip surgery: PLAN: Plan Postop day 3 status post left hip ORIF of IT plus subtrochanteric fracture with long gamma nailing. Patient doing well. Pain well-controlled. Weightbearing as tolerated. PT OT ambulation. Discharge to rehab. Documented by User: Dr. Matt Chacon MD 02/19/25 13:27 Objective Data Lab / Micro Data 02/19/25 04:53 02/19/25 04:53 Assessment & Plan Assessment/Plan (1) Intertrochanteric fracture of left femur: QUALIFIERS: Encounter type: initial encounter Fracture alignment:displaced Fracture type: closed Qualified Code(s): S72.142A - Displaced intertrochanteric fracture of left femur, initial encounter for closed fracture (2) Status post hip surgery: PLAN: Plan Postop day 3 status post left hip ORIF of IT plus subtrochanteric fracture with long gamma nailing. Patient doing well. Pain well-controlled. Hemoglobin back to 9+. Eliquis for DVT prophylaxis Weightbearing as tolerated. PT OT ambulation. Discharge to rehab, waiting for placement. Follow-up in clinic in 2 weeks for staple removal. Orthopedics will sign off. Please reach out for questions or concerns. 02/19/25 1327 Cosigner Signature (if applicable): CC: ~ Signed [facility]06-30-2025 Consult note Author Bi Zaman [facility] Note Date/Time February 21, 2025 1:55p m [facility] Medical Records Department [address] [place] [address] Anesthesia Postop Eval II 02/19/25 0958 MR#: [id number] Acct: [id number] Name: SHASHI OSWALD Rep #:[id number] : 1945 79 From: Bi Zaman MD PCP: Dr. Candelario Santana MD Status:ADM I N Y Race: C [place] [facility] [place] Anesthesia Postop Eval I Sum Postop Eval Completion status Anesthesia document: Postop Eval 1 completed: Yes Anesthesia Postop Eval I Summary Anesthesia Postop Eval I Summary: Anesthesia Postop Eval I: Assessment Summary Airway patent Yes 02/16/25 12:50 VESSEL SCRAPPER [email or web address] Spontaneous unlabored Yes 02/16/25 12:50 VESSEL SCRAPPER [email or web address] respirations Mental status Awake,Calm 02/16/25 12:50 VESSEL SCRAPPER [email or web address].[email or web address] nausea No 02/16/25 12:50 VESSEL SCRAPPER [email or web address].[email or web address] Vomiting No 02/16/25 12:50 VESSEL SCRAPPER [email or web address].SKOBY Anesthesia Postop Eval I: Fluid Summary Crystalloid volume administer 2,400 02/16/25 12:50 VESSEL SCRAPPER HELPER.[email or web address] (ml) Colloids volume administered ( ml) Blood Product volume administered (ml) Total IV fluid infused 2,400 02/16/25 12:50 VESSEL SCRAPPER HELPER.[email or web address] Anesthesia Postop Eval I: Summary Notes Anesthesia Complication No 02/16/25 12:50 VESSEL SCRAPPER HELPER.SKOBBarb Anesthesia Complication Comment: Post-operative progress note to receive 2 units 02/16/25 12:50 VESSEL SCRAPPER HELPERMERNA of PRBCs, awaiting from blood bank, Dr. Zaman aware of units to be received and pressor requirements during case; currently weaned off and BP stable. Anesthesia: Postop Eval II Evaluation Mental status: Awake and Calm Pain Level: 1 nausea: No Vomiting: No Complications Anesthesia Complication: No 02/19/25 0958 <Electronically signed by Bi mendez MD> Date _ Bi Zaman MD Cosigner Signature: Date CC: ~ Signed [facility] Work Phone: 1(159) [phone] Progress note Author Gia Owusu [facility] Note Date/Time February 18, 2025 12:4 3pm [facility] Medical Records Department [address] [place] [address] Progress Note - Hospitalist 02/18/25 0719 MR#: [id number] Acct: [id number] Name: SHASHI OSWALD Rep #:[id number] : 1945 79 From: Gia Owusu DO PCP: Dr. Candelario Santana MD Status:ADM I N Location: RI3 PN709-8 Reason for Visit Reason for Visit: Left hip pain after fall Subjective Subjective Patient has no complaints. Awaiting acceptance at rehab and then will need pre- CERT. States her pain is well-controlled. Patient is having bowel movements and denies constipation. Objective Data Objective Data Vital Signs: Vital Signs Temp Pulse Resp BP Pulse Ox O2 Del Method O2 Flow Rate 97.7 F L 94 17 121/60 H 98 Room Air 2 02/18/25 06:06 02/18/25 06:06 02/18/25 06:06 02/18/25 06:06 02/18/25 06:06 02/18/25 06:06 02/16/25 08:45 Oxygen Flow Rate (L/min) 2 Oxygen Delivery Method Room Air Weight: 57.289 kg Body Mass Index (BMI) 23.8 Intake & Output: Intake and Output for Last 24 Hours 02/16/25 02/17/25 02/18/25 23:59 23:59 23:59 Intake Total 2964.25 / 2964.25 2907.75 / 2907.75 Output Total 1240 / 1240 1450 / 1450 200 / 200 Balance 1724.25 / 1724.25 1457.75 / 1457.75 -200 / -200 Lab / Micro Data 02/18/25 05:10 02/17/25 05:48 Labs: Laboratory Results - last 24 hr 02/17/25 11:43: POC Glucose 238 H 02/17/25 16:32: POC Glucose 192 H 02/17/25 22:00: POC Glucose 246 H 02/18/25 05:10: WBC 9.2, RBC 3.09 L, Hgb 9.6 L, Hct 26.8 L, MCV 86.7, MCH 31.1, MCHC 35.8, RDW Std Deviation 45.9 H, RDW Coeff of Cody 15.3 H, Plt Count 247, MPV9.4, Immature Gran % (Auto) 0.500, Neut % (Auto) 63.7, Lymph % (Auto) 22.6, [place]% (Auto) 10.4 H, Eos % (Auto) 2.4, Baso % (Auto) 0.4, Absolute Neuts (auto) 5.8,Absolute Lymphs (auto) 2.07, Nucleated RBC % 0 02/18/25 06:25: POC Glucose 188 H Physical Exam Const alert, no apparent distress, average body habitus and well nourished Constitutional Narrative: Older, white female, sitting up in a chair at the bedside watching television, appears comfortable, nontoxic HEENT head/scalp atraumatic and moist oral mucous membranes Head and Scalp: normocephalic Resp normal respiratory effort, no retractions, no use of accessory muscles and clearto auscultation bilaterally Auscultation: Negative for rales, rhonchi or wheezes Cardio regular rate, regular rhythm, S1 normal heart sound, S2 normal heart sound, no murmurs, no rub, no gallops and no clicks GI normal to inspection, nondistended, normoactive bowel sounds, soft to palpation and non-tender Extremity no clubbing, cyanosis or edema Extremity Narrative: Pedal and radial pulses are 2+ Skin Skin Narrative: Incision left hip is clean dry intact with bandage in place and no bloody drainage on bandages Neuro moves all extremities and no focal motor deficits Neuro Narrative: Left-sided weakness due to pain Sensorium / Orientation: awake, alert, oriented to person and oriented to place Speech: speech normal Psych affect normal Psych Narrative: Extremely pleasant Assessment & Plan Assessment/Plan (1) Anemia: (2) Intertrochanteric fracture of left femur: QUALIFIERS: Encounter type: initial encounter Fracture type: closed Fracture alignment: displaced Qualified Code(s): S72.142A - Displaced intertrochanteric fracture of left femur, initial encounter for closed fracture (3) Fall: (4) Constipation: (5) Occult blood in stools: (6) Vitamin D deficiency: PLAN: Plan Left intertrochanteric fracture - Postop day 2 left cephalomedullary nail with long gamma nail - Secondary to suspected osteoporosis - Would recommend outpatient DEXA scan - Weightbearing as tolerated per orthopedic surgery - Long-term anticoagulation for DVT prophylaxis per orthopedic surgery with Eliquis - Will monitor CBC closely - Continue scheduled Tylenol and as needed oxycodone - PT/OT following - Anticipate discharge to SNF versus rehab--> case management/social media coordinator following - Will need pre-CERT Acute anemia - Hemoccult was positive but patient is not anticoagulated at baseline and I do question whether or not this is potentially related to hemorrhoids as she does have constipation issues - Status post 2 units of packed red blood cells and hemoglobin remains stable despite starting Eliquis - Repeat CBC in the a.m. for stability - If further drop may need GI consultation but if stable will refer as an outpatient Vitamin D deficiency - Continue ergocalciferol as ordered DM-2 - Patient is diet controlled - most recent hemoglobin A1c was 7.3 - will transition diet to carb control Parkinson's disease - Continue home carbidopa levodopa Essential hypertension - Blood pressures are still somewhat soft postoperatively - Will continue to monitor need for antihypertensives as patient is on losartan at baseline - Restart losartan as medically appropriate Abnormal TSH - TSH was 7.49 with a normal free T4 at 1.1 - Euthyroid sick syndrome - Outpatient follow-up DVT prophylaxis - Apixaban 2.5 mg p.o. twice daily per orthopedic surgery CODE STATUS -Full code Disposition: 02/18/2025 patient is ready for discharge from a medical standpoint. Delay in discharge is related to day of the week being Wednesday, awaiting acceptance to rehab and patient will need pre-CERT. Charges/Coding Visit Charges Inpatient E&M: 87479 Subs Hosp L2 02/18/25 1243 <Electronically signed by Gia Owusu DO> Cosigner Signature (if applicable): CC: ~ Signed [facility] Work Phone: 1(911) 589-124006-29-2025 Progress note [facility] Medical Records Department [address] [place] [address] Progress Note - Hospitalist 02/18/25718 MR#: [id number] Acct: [id number] Name: SHASHI OSWALD Rep #:[id number] : 1945 79 From: Gia Owusu DO PCP: Dr. Candelario Santana MD Status:ADM I N Location: MS3 WH640-3 Reason for Visit Reason for Visit: Left hip pain after fall Subjective Subjective Patient has no complaints. Awaiting acceptance at rehab and then will need pre- CERT. States her pain is well-controlled. Patient is having bowel movements and denies constipation. Objective Data Objective Data Vital Signs: Vital Signs Temp Pulse Resp BP Pulse Ox O2 Del Method O2 Flow Rate 97.7 F L 94 17 121/60 H 98 Room Air 2 02/18/25 06:06 02/18/25 06:06 02/18/25 06:06 02/18/25 06:06 02/18/25 06:06 02/18/25 06:06 02/16/25 08:45 Oxygen Flow Rate (L/min) 2 Oxygen Delivery Method Room Air Weight: 57.289 kg Body Mass Index (BMI) 23.8 Intake & Output: Intake and Output for Last 24 Hours 02/16/25 02/17/25 02/18/25 23:59 23:59 23:59 Intake Total 2964.25 / 2964.25 2907.75 / 2907.75 Output Total 1240 / 1240 1450 / 1450 200 / 200 Balance 1724.25 / 1724.25 1457.75 / 1457.75 -200 / -200 Lab / Micro Data 02/18/25 05:10 02/17/25 05:48 Labs: Laboratory Results - last 24 hr 02/17/25 11:43: POC Glucose 238 H 02/17/25 16:32: POC Glucose 192 H 02/17/25 22:00: POC Glucose 246 H 02/18/25 05:10: WBC 9.2, RBC 3.09 L, Hgb 9.6 L, Hct 26.8 L, MCV 86.7, MCH 31.1, MCHC 35.8, RDW Std Deviation 45.9 H, RDW Coeff of Cody 15.3 H, Plt Count 247, MPV9.4, Immature Gran % (Auto) 0.500, Neut% (Auto) 63.7, Lymph % (Auto) 22.6, [place]% (Auto) 10.4 H, Eos % (Auto) 2.4, Baso % (Auto) 0.4, Absolute Neuts (auto) 5.8,Absolute Lymphs (auto) 2.07, Nucleated RBC % 0 02/18/25 06:25: POC Glucose 188 H Physical Exam Const alert, no apparent distress, average body habitus and well nourished Constitutional Narrative: Older, white female, sitting up in a chair at the bedside watching television, appears comfortable,nontoxic HEENT head/scalp atraumatic and moist oral mucous membranes Head and Scalp: normocephalic Resp normal respiratory effort, no retractions, no use of accessory muscles and clearto auscultation bilaterally Auscultation: Negative for rales, rhonchi or wheezes Cardio regular rate, regular rhythm, S1 normal heart sound, S2 normal heart sound, no murmurs, no rub, no gallops and no clicks GI normal to inspection, nondistended, normoactive bowel sounds, soft to palpation and non-tender Extremity no clubbing, cyanosis or edema Extremity Narrative: Pedal and radial pulses are 2+ Skin Skin Narrative: Incision left hip is clean dry intact with bandage in place and no bloody drainage on bandages Neuro moves all extremities and no focal motor deficits Neuro Narrative: Left-sided weakness due to pain Sensorium / Orientation: awake, alert, oriented to person and oriented to place Speech: speech normal Psych affect normal Psych Narrative: Extremely pleasant Assessment & Plan Assessment/Plan (1) Anemia: (2) Intertrochanteric fracture of left femur: QUALIFIERS: Encounter type: initial encounter Fracture type: closed Fracture alignment: displaced Qualified Code(s): S72.142A - Displaced intertrochanteric fracture of left femur, initial encounter for closed fracture (3) Fall: (4) Constipation: (5) Occult blood in stools: (6) Vitamin D deficiency: PLAN: Plan Left intertrochanteric fracture - Postop day 2 left cephalomedullary nail with long gamma nail - Secondary to suspected osteoporosis - Would recommend outpatient DEXA scan - Weightbearing as tolerated per orthopedic surgery - Long-term anticoagulation for DVT prophylaxis per orthopedic surgery with Eliquis - Will monitor CBC closely - Continue scheduled Tylenol and as needed oxycodone - PT/OT following - Anticipate discharge to SNF versus rehab--> case management/social media coordinator following - Will need pre-CERT Acute anemia - Hemoccult was positive but patient is not anticoagulated at baseline and I do question whether ornot this is potentially related to hemorrhoids as she does have constipation issues - Status post 2 units of packed red blood cells and hemoglobin remains stable despite starting Eliquis - Repeat CBC in the a.m. for stability - If further drop may need GI consultation but if stable will refer as an outpatient Vitamin D deficiency - Continue ergocalciferol as ordered DM-2 - Patient is diet controlled - most recent hemoglobin A1c was 7.3 - will transition diet to carb control Parkinson's disease - Continue home carbidopa levodopa Essential hypertension - Blood pressures are still somewhat soft postoperatively - Will continue to monitor need for antihypertensives as patient is on losartan at baseline - Restart losartan as medically appropriate Abnormal TSH - TSH was 7.49 with a normal free T4 at 1.1 - Euthyroid sick syndrome - Outpatient follow-up DVT prophylaxis - Apixaban 2.5 mg p.o. twice daily per orthopedic surgery CODE STATUS -Full code Disposition: 02/18/2025 patient is ready for discharge from a medical standpoint. Delay in dischargeis related to day of the week being Wednesday, awaiting acceptance to rehab and patient will need pre-CERT. Charges/Coding Visit Charges Inpatient E&M: 37521 Subs Hosp L2 02/18/25 1243 Cosigner Signature (if applicable): CC: ~ Signed [facility]06-28-2025 Progress note Author Gia Owusu [facility] Note Date/Time February 17, 2025 4:05 pm [facility] Medical Records Department [address] [place] [address] Progress Note - Hospitalist 02/17/25 0745 MR#: [id number] Acct: [id number] Name: SHASHI OSWALD Rep #:[id number] : 1945 79 From: Gia Owusu DO PCP: Dr. Candelario Santana MD Status:ADM I N Location: [facility]3 SD830-0 Reason for Visit Reason for Visit: Inability to walk with left hip fracture Subjective Subjective Patient states she is feeling well. Anxious to get out of bed. Weightbearing status has been clarified. Anticipate will need discharge to SNF versus rehab. Patient has no significant complaints at this time and states that she feels better after her blood transfusion. Objective Data Objective Data Vital Signs: Vital Signs Temp Pulse Resp BP Pulse Ox O2 Del Method O2 Flow Rate 98.8 F 102 H 16 102/43 L 97 Room Air 2 02/17/25 05:04 02/17/25 05:04 02/17/25 05:04 02/17/25 05:04 02/17/25 05:04 02/17/25 05:04 02/16/25 08:45 Oxygen Flow Rate (L/min) 2 Oxygen Delivery Method Room Air Weight: 57.289 kg Body Mass Index (BMI) 23.8 Intake & Output: Intake and Output for Last 24 Hours 02/15/25 02/16/25 02/17/25 23:59 23:59 23:59 Intake Total 1130 / 1130 2964.25 / 2964.25 Output Total 700 / 950 1240 / 1240 800 / 800 Balance 430 / 180 1724.25 / 1724.25 -800 / -800 Lab / Micro Data 02/17/25 05:48 02/17/25 05:48 Labs: Laboratory Results - last 24 hr 02/15/25 13:21: Crossmatch See Detail 02/16/25 04:57: Haptoglobin 91, Vitamin D 25-Hydroxy 10.7 L, Free T4 1.10 02/16/25 16:22: POC Glucose 245 H 02/16/25 21:17: POC Glucose 250 H 02/17/25 05:48: WBC 10.0, RBC 3.17 L, Hgb 9.9 L, Hct 27.0 L, MCV 85.2, MCH 31.2,MCHC 36.7 H, RDW Std Deviation 44.0 H, RDW Coeff of [place] 14.6, Plt Count 247, MPV9.4, Immature Gran % (Auto) 0.600, Neut % (Auto) 66.6, Lymph % (Auto) 22.0, [place]% (Auto) 10.3 H, Eos % (Auto) 0.3, Baso % (Auto) 0.2, Absolute Neuts (auto) 6.7,Absolute Lymphs (auto) 2.20, Nucleated RBC % 0, Sodium 136, Potassium 4.0, Chloride 105, Carbon Dioxide 20.2 L, Anion Gap 11, BUN 17, Creatinine 0.61 L, Estim Creat Clear Calc 44.44 L, Est GFR (MDRD) Non-Af 92, BUN/Creatinine Ratio 28.5 H, Glucose 157 H, Calcium 8.3 02/17/25 06:06: POC Glucose 159 H Radiography Diagnostic Testing: Radiology Impression C-Arm Fluoroscopy 02/16/25 08:00 IMPRESSION: Intraoperative fluoroscopy was performed for fracture fixation of the proximal left femur. A total of 24 fluoroscopic images were obtained. Reading Location: [facility] Hip X-Ray 02/16/25 08:00 IMPRESSION: Intraoperative fluoroscopy was performed for fracture fixation of the proximal left femur. A total of 24 fluoroscopic images were obtained. Reading Location: [place] [address] Physical Exam Const alert, oriented x3, no apparent distress, average body habitus and well nourished Constitutional Narrative: Older, white female, sitting up in bed watching television, appears comfortable,nontoxic HEENT head/scalp atraumatic and moist oral mucous membranes Head and Scalp: normocephalic Resp normal respiratory effort, no retractions, no use of accessory muscles and clearto auscultation bilaterally Auscultation: Negative for rales, rhonchi or wheezes Cardio regular rate, regular rhythm, S1 normal heart sound, S2 normal heart sound, no murmurs, no rub, no gallops and no clicks GI normal to inspection, nondistended, normoactive bowel sounds, soft to palpation and non-tender Extremity no clubbing, cyanosis or edema Extremity Narrative: Pedal and radial pulses are 2+ Skin Skin Narrative: Incision left hip is clean dry intact with bandage in place and no bloody drainage on bandages Neuro oriented x3, moves all extremities and no focal motor deficits Neuro Narrative: Left-sided weakness due to pain Speech: speech normal Psych affect normal Psych Narrative: Extremely pleasant Assessment & Plan Assessment/Plan (1) Anemia: (2) Intertrochanteric fracture of left femur: QUALIFIERS: Encounter type: initial encounter Fracture type: closed Fracture alignment: displaced Qualified Code(s): S72.142A - Displaced intertrochanteric fracture of left femur, initial encounter for closed fracture (3) Fall: (4) Constipation: (5) Occult blood in stools: (6) Vitamin D deficiency: PLAN: Plan Left intertrochanteric fracture - Postop day 1 left cephalomedullary nail with long gamma nail Secondary to suspected osteoporosis - Would recommend outpatient DEXA scan - Weightbearing as tolerated per orthopedic surgery - Long-term anticoagulation for DVT prophylaxis per orthopedic surgery with Eliquis - Will monitor CBC closely - Continue scheduled Tylenol and as needed oxycodone - PT/OT following - Anticipate discharge to SNF versus rehab--> case management/social media coordinator following - Will need pre-CERT - If remains stable with regards to her labs tomorrow will be deemed medically ready for discharge at that time Acute anemia - Hemoccult was positive but patient is not anticoagulated at baseline and I do question whether or not this is potentially related to hemorrhoids as she does have constipation issues - Status post 2 units of packed red blood cells and hemoglobin is stable - Repeat CBC in the a.m. for stability - Okay with initiation of DVT prophylaxis with Eliquis per orthopedic surgery recommendations with close monitoring of hemoglobin - If further drop may need GI consultation but if stable will refer as an outpatient Vitamin D deficiency - Continue ergocalciferol as ordered DM-2 - Patient is diet controlled - most recent hemoglobin A1c was 7.3 - will transition diet to carb control Parkinson's disease - Continue home carbidopa levodopa Essential hypertension - Blood pressures are still somewhat soft postoperatively - Will continue to monitor need for antihypertensives as patient is on losartan at baseline - Restart losartan as medically appropriate Abnormal TSH - TSH was 7.49 with a normal free T4 at 1.1 - Euthyroid sick syndrome - Outpatient follow-up DVT prophylaxis - Apixaban 2.5 mg p.o. twice daily per orthopedic surgery CODE STATUS -Full code Charges/Coding Visit Charges Inpatient E&M: 14949 Subs Hosp L2 02/17/25 1601 <Electronically signed by Gia Owusu DO> Cosigner Signature (if applicable): CC: ~ Signed [facility] Work Phone: [phone] Progress note [facility] Medical Records Department [address] [place] [id number] Progress Note - Hospitalist 02/17/25 0745 MR#: [id number] Acct: [id number] Name: SHASHI OSWALD Rep #:[id number] : 1945 79 From: Gia Owusu DO PCP: Dr. Candelario Santana MD Status:ADM I N Location: RI3 [id number] Reason for Visit Reason for Visit: Inability to walk with left hip fracture Subjective Subjective Patient states she is feeling well. Anxious to get out of bed. Weightbearing status has been clarified. Anticipate will need discharge to SNF versus rehab. Patient has no significant complaints at this time and states that she feels better after her blood transfusion. Objective Data Objective Data Vital Signs: Vital Signs Temp Pulse Resp BP Pulse Ox O2 Del Method O2 Flow Rate 98.8 F 102 H 16 102/43 L 97 Room Air 2 02/17/25 05:04 02/17/25 05:04 02/17/25 05:04 02/17/25 05:04 02/17/25 05:04 02/17/25 05:04 02/16/25 08:45 Oxygen Flow Rate (L/min) 2 Oxygen Delivery Method Room Air Weight: 57.289 kg Body Mass Index (BMI) 23.8 Intake & Output: Intake and Output for Last 24 Hours 02/15/25 02/16/25 02/17/25 23:59 23:59 23:59 Intake Total 1130 / 1130 2964.25 / 2964.25 Output Total 700 / 950 1240 / 1240 800 / 800 Balance 430 / 180 1724.25 / 1724.25 -800 / -800 Lab / Micro Data 02/17/25 05:48 02/17/25 05:48 Labs: Laboratory Results - last 24 hr 02/15/25 13:21: Crossmatch See Detail 02/16/25 04:57: Haptoglobin 91, Vitamin D 25-Hydroxy 10.7 L, Free T4 1.10 02/16/25 16:22: POC Glucose 245 H 02/16/25 21:17: POC Glucose 250 H 02/17/25 05:48: WBC 10.0, RBC 3.17 L, Hgb 9.9 L, Hct 27.0 L, MCV 85.2, MCH 31.2,MCHC 36.7 H, RDW Std Deviation 44.0 H, RDW Coeff of Cody 14.6, Plt Count 247, MPV9.4, Immature Gran % (Auto) 0.600, Neut% (Auto) 66.6, Lymph % (Auto) 22.0, [place]% (Auto) 10.3 H, Eos % (Auto) 0.3, Baso % (Auto) 0.2, Absolute Neuts (auto) 6.7,Absolute Lymphs (auto) 2.20, Nucleated RBC % 0, Sodium 136, Potassium 4.0, Chloride 105, Carbon Dioxide 20.2 L, Anion Gap 11, BUN 17, Creatinine 0.61 L, Estim Creat Clear Calc 44.44 L, Est GFR (MDRD) Non-Af 92, BUN/Creatinine Ratio 28.5 H, Glucose 157 H, Calcium 8.3 02/17/25 06:06: POC Glucose 159 H Radiography Diagnostic Testing: Radiology Impression C-Arm Fluoroscopy 02/16/25 08:00 IMPRESSION: Intraoperative fluoroscopy was performed for fracture fixation of the proximal left femur. A total of 24 fluoroscopic images were obtained. Reading Location: [place] [address] Hip X-Ray 02/16/25 08:00 IMPRESSION: Intraoperative fluoroscopy was performed for fracture fixation of the proximal left femur. A total of 24 fluoroscopic images were obtained. Reading Location: [place] [address] Physical Exam Const alert, oriented x3, no apparent distress, average body habitus and well nourished Constitutional Narrative: Older, white female, sitting up in bed watching television, appears comfortable,nontoxic HEENT head/scalp atraumatic and moist oral mucous membranes Head and Scalp: normocephalic Resp normal respiratory effort, no retractions, no use of accessory muscles and clearto auscultation bilaterally Auscultation: Negative for rales, rhonchi or wheezes Cardio regular rate, regular rhythm, S1 normal heart sound, S2 normal heart sound, no murmurs, no rub, no gallops and no clicks GI normal to inspection, nondistended, normoactive bowel sounds, soft to palpation and non-tender Extremity no clubbing, cyanosis or edema Extremity Narrative: Pedal and radial pulses are 2+ Skin Skin Narrative: Incision left hip is clean dry intact with bandage in place and no bloody drainage on bandages Neuro oriented x3, moves all extremities and no focal motor deficits Neuro Narrative: Left-sided weakness due to pain Speech: speech normal Psych affect normal Psych Narrative: Extremely pleasant Assessment & Plan Assessment/Plan (1) Anemia: (2) Intertrochanteric fracture of left femur: QUALIFIERS: Encounter type: initial encounter Fracture type: closed Fracture alignment: displaced Qualified Code(s): S72.142A - Displaced intertrochanteric fracture of left femur, initial encounter for closed fracture (3) Fall: (4) Constipation: (5) Occult blood in stools: (6) Vitamin D deficiency: PLAN: Plan Left intertrochanteric fracture - Postop day 1 left cephalomedullary nail with long gamma nail Secondary to suspected osteoporosis - Would recommend outpatient DEXA scan - Weightbearing as tolerated per orthopedic surgery - Long-term anticoagulation for DVT prophylaxis per orthopedic surgery with Eliquis - Will monitor CBC closely - Continue scheduled Tylenol and as needed oxycodone - PT/OT following - Anticipate discharge to SNF versus rehab--> case management/social media coordinator following - Will need pre-CERT - If remains stable with regards to her labs tomorrow will be deemed medically ready for discharge at that time Acute anemia - Hemoccult was positive but patient is not anticoagulated at baseline and I do question whether ornot this is potentially related to hemorrhoids as she does have constipation issues - Status post 2 units of packed red blood cells and hemoglobin is stable - Repeat CBC in the a.m. for stability - Okay with initiation of DVT prophylaxis with Eliquis per orthopedic surgery recommendations with close monitoring of hemoglobin - If further drop may need GI consultation but if stable will refer as an outpatient Vitamin D deficiency - Continue ergocalciferol as ordered DM-2 - Patient is diet controlled - most recent hemoglobin A1c was 7.3 - will transition diet to carb control Parkinson's disease - Continue home carbidopa levodopa Essential hypertension - Blood pressures are still somewhat soft postoperatively - Will continue to monitor need for antihypertensives as patient is on losartan at baseline - Restart losartan as medically appropriate Abnormal TSH - TSH was 7.49 with a normal free T4 at 1.1 - Euthyroid sick syndrome - Outpatient follow-up DVT prophylaxis - Apixaban 2.5 mg p.o. twice daily per orthopedic surgery CODE STATUS -Full code Charges/Coding Visit Charges Inpatient E&M: 94242 Subs Hosp L2 02/17/25 1605 Cosigner Signature (if applicable): CC: ~ Signed [facility]06-28-2025 Progress note Author Matt Chacon [facility] Note Date/Time February 17, 2025 11:4 3am [facility] Medical Records Department [address] [place] [address] Progress Note - Orthopedic 02/17/25 1137 MR#: [id number] Acct: [id number] Name: SHASHI OSWALD Rep #:[id number] : 1945 79 From: Matt Chacon MD PCP: Dr. Candelario Santana MD Status:ADM I N Location: MS3 QC750-2 Subjective Subjective Postop day 1 status post left hip long gamma nail for IT plus subtrochanteric fracture. Patient doing well. Pain well-controlled. Denies any dizziness in sitting up. Had 2 units transfused yesterday, hemoglobin is up to the nines this morning Objective Data Objective Data Vital Signs: Vital Signs Temp Pulse Resp BP Pulse Ox O2 Del Method O2 Flow Rate 98.9 F 97 16 126/65 H 96 Room Air 2 02/17/25 10:54 02/17/25 10:54 02/17/25 10:54 02/17/25 10:54 02/17/25 10:54 02/17/25 10:54 02/16/25 08:45 Oxygen Flow Rate (L/min) 2 Oxygen Delivery Method Room Air Weight: 126 lb 4.8 oz Body Mass Index (BMI) 23.8 Intake & Output: Intake and Output for Last 24 Hours 02/15/25 02/16/25 02/17/25 23:59 23:59 23:59 Intake Total 1130 / 1130 2964.25 / 2964.25 Output Total 700 / 950 1240 / 1240 800 / 800 Balance 430 / 180 1724.25 / 1724.25 -800 / -800 Lab / Micro Data 02/17/25 05:48 02/17/25 05:48 Labs: Laboratory Results - last 24 hr 02/15/25 13:21: Crossmatch See Detail 02/16/25 04:57: Haptoglobin 91 02/16/25 16:22: POC Glucose 245 H 02/16/25 21:17: POC Glucose 250 H 02/17/25 05:48: WBC 10.0, RBC 3.17 L, Hgb 9.9 L, Hct 27.0 L, MCV 85.2, MCH 31.2,MCHC 36.7 H, RDW Std Deviation 44.0 H, RDW Coeff of Cody 14.6, Plt Count 247, MPV9.4, Immature Gran % (Auto) 0.600, Neut % (Auto) 66.6, Lymph % (Auto) 22.0, [place]% (Auto) 10.3 H, Eos % (Auto) 0.3, Baso % (Auto) 0.2, Absolute Neuts (auto) 6.7,Absolute Lymphs (auto) 2.20, Nucleated RBC % 0, Sodium 136, Potassium 4.0, Chloride 105, Carbon Dioxide 20.2 L, Anion Gap 11, BUN 17, Creatinine 0.61 L, Estim Creat Clear Calc 44.44 L, Est GFR (MDRD) Non-Af 92, BUN/Creatinine Ratio 28.5 H, Glucose 157 H, Calcium 8.3 02/17/25 06:06: POC Glucose 159 H Radiography Diagnostic Testing: Radiology Impression C-Arm Fluoroscopy 02/16/25 08:00 IMPRESSION: Intraoperative fluoroscopy was performed for fracture fixation of the proximal left femur. A total of 24 fluoroscopic images were obtained. Reading Location: [place] [address] Hip X-Ray 02/16/25 08:00 IMPRESSION: Intraoperative fluoroscopy was performed for fracture fixation of the proximal left femur. A total of 24 fluoroscopic images were obtained. Reading Location: [place] [address] Physical Exam Narrative Dressing?CDI. Distal neurovascular exam is intact in left lower extremity. Assessment & Plan Assessment/Plan (1) Intertrochanteric fracture of left femur: QUALIFIERS: Encounter type: initial encounter Fracture type: closed Fracture alignment: displaced Qualified Code(s): S72.142A - Displaced intertrochanteric fracture of left femur, initial encounter for closed fracture PLAN: Plan Postop day 1 status post left hip ORIF of IT plus subtrochanteric fracture with long gamma nailing. Patient doing well. Pain well-controlled. Weightbearing as tolerated. PT OT ambulation. Recommend starting DVT chemoprophylaxis with Eliquis, unless contraindicated. Discharge pending PT recommendations for rehab versus home. 02/17/25 1143 <Electronically signed by Matt Chacon MD> Cosigner Signature (if applicable): CC: ~ Signed [facility] Work Phone: [phone]) [phone] Progress note [facility] Medical Records Department [address] [place] [address] Progress Note - Orthopedic 02/17/25 1137 MR#: [id number] Acct: [id number] Name: SHASHI OSWALD Rep #:[id number] : 1945 79 From: Matt Chacon MD PCP: Dr. Candelario Santana MD Status:ADM I N Location: MS3 KR073-5 Subjective Subjective Postop day 1 status post left hip long gamma nail for IT plus subtrochanteric fracture. Patient doing well. Pain well-controlled. Denies any dizziness in sitting up. Had 2 units transfused yesterday, hemoglobin is up to the nines this morning Objective Data Objective Data Vital Signs: Vital Signs Temp Pulse Resp BP Pulse Ox O2 Del Method O2 Flow Rate 98.9 F 97 16 126/65 H 96 Room Air 2 02/17/25 10:54 02/17/25 10:54 02/17/25 10:54 02/17/25 10:54 02/17/25 10:54 02/17/25 10:54 02/16/25 08:45 Oxygen Flow Rate (L/min) 2 Oxygen Delivery Method Room Air Weight: 126 lb 4.8 oz Body Mass Index (BMI) 23.8 Intake & Output: Intake and Output for Last 24 Hours 02/15/25 02/16/25 02/17/25 23:59 23:59 23:59 Intake Total 1130 / 1130 2964.25 / 2964.25 Output Total 700 / 950 1240 / 1240 800 / 800 Balance 430 / 180 1724.25 / 1724.25 -800 / -800 Lab / Micro Data 02/17/25 05:48 02/17/25 05:48 Labs: Laboratory Results - last 24 hr 02/15/25 13:21: Crossmatch See Detail 02/16/25 04:57: Haptoglobin 91 02/16/25 16:22: POC Glucose 245 H 02/16/25 21:17: POC Glucose 250 H 02/17/25 05:48: WBC 10.0, RBC 3.17 L, Hgb 9.9 L, Hct 27.0 L, MCV 85.2, MCH 31.2,MCHC 36.7 H, RDW Std Deviation 44.0 H, RDW Coeff of Cody 14.6, Plt Count 247, MPV9.4, Immature Gran % (Auto) 0.600, Neut% (Auto) 66.6, Lymph % (Auto) 22.0, [place]% (Auto) 10.3 H, Eos % (Auto) 0.3, Baso % (Auto) 0.2, Absolute Neuts (auto) 6.7,Absolute Lymphs (auto) 2.20, Nucleated RBC % 0, Sodium 136, Potassium 4.0, Chloride 105, Carbon Dioxide 20.2 L, Anion Gap 11, BUN 17, Creatinine 0.61 L, Estim Creat Clear Calc 44.44 L, Est GFR (MDRD) Non-Af 92, BUN/Creatinine Ratio 28.5 H, Glucose 157 H, Calcium 8.3 02/17/25 06:06: POC Glucose 159 H Radiography Diagnostic Testing: Radiology Impression C-Arm Fluoroscopy 02/16/25 08:00 IMPRESSION: Intraoperative fluoroscopy was performed for fracture fixation of the proximal left femur. A total of 24 fluoroscopic images were obtained. Reading Location: [facility]- Hip X-Ray 02/16/25 08:00 IMPRESSION: Intraoperative fluoroscopy was performed for fracture fixation of the proximal left femur. A total of 24 fluoroscopic images were obtained. Reading Location: [place] [address] Physical Exam Narrative Dressing?CDI. Distal neurovascular exam is intact in left lower extremity. Assessment & Plan Assessment/Plan (1) Intertrochanteric fracture of left femur: QUALIFIERS: Encounter type: initial encounter Fracture type: closed Fracture alignment: displaced Qualified Code(s): S72.142A - Displaced intertrochanteric fracture of left femur, initial encounter for closed fracture PLAN: Plan Postop day 1 status post left hip ORIF of IT plus subtrochanteric fracture with long gamma nailing. Patient doing well. Pain well-controlled. Weightbearing as tolerated. PT OT ambulation. Recommend starting DVT chemoprophylaxis with Eliquis, unless contraindicated. Discharge pending PT recommendations for rehab versus home. 02/17/25 1143 Cosigner Signature (if applicable): CC: ~ Signed [facility]06-27-2025 Progress note Author Baldev Berry [facility] Note Date/Time February 16, 2025 3:31 pm [facility] Medical Records Department [address] [place] [address] Progress Note - Hospitalist 02/16/25 8518 MR#: [id number] Acct: [id number] Name: ERNST OSWALDI Rep #:[id number] : 1945 79 From: Baldev Berry DO PCP: Dr. Candelario Santana MD Status:ADM I N Location: MS3 [id number] Reason for Visit Reason for Visit: Diagnoses Fracture of unspecified part of neck of unspecified femur, initial encounter forclosed fracture (02/15/25) Subjective Subjective Feeling well postop. Was ordered 2 units of blood from the heart. First is already finished transfusing patient unit ordered. No shortness of breath. Objective Data Objective Data Vital Signs: Vital Signs Temp Pulse Resp BP Pulse Ox O2 Del Method O2 Flow Rate 36.2 C L 58 L 16 110/66 100 Nasal Cannula 2 02/16/25 03:44 02/16/25 03:44 02/16/25 03:44 02/16/25 03:44 02/16/25 03:44 02/16/25 03:44 02/16/25 03:44 Oxygen Flow Rate (L/min) 2 Oxygen Delivery Method Nasal Cannula Weight: 57.289 kg Body Mass Index (BMI) 23.8 Intake & Output: Intake and Output for Last 24 Hours 02/14/25 02/15/25 02/16/25 23:59 23:59 23:59 Intake Total 1130 / 1130 Output Total 700 / 950 300 / 300 Balance 430 / 180 -300 / -300 Lab / Micro Data 02/16/25 04:57 02/16/25 04:57 Labs: Laboratory Results - last 24 hr 02/15/25 13:21: WBC 9.1, RBC 2.71 L, Hgb 8.7 L, Hct 24.0 L, MCV 88.6, MCH 32.1 H, MCHC 36.3 H, RDW Std Deviation 42.4, RDW Coeff of Cody 14.1, Plt Count 258, MPV9.6, Immature Gran % (Auto) 0.300, Neut % (Auto) 50.2, Lymph % (Auto) 38.6, [place]% (Auto) 8.7, Eos % (Auto) 1.8, Baso % (Auto) 0.4, Absolute Neuts (auto) 4.6, Absolute Lymphs (auto) 3.52, Nucleated RBC % 0, Sodium 133, Potassium 3.7, Chloride 100, Carbon Dioxide 18.1 L, Anion Gap 15, BUN 19, Creatinine 0.76, Estim Creat Clear Calc 50.65, Est GFR (MDRD) Non-Af 80, BUN/Creatinine Ratio 25.3 H, Glucose 155 H, Calcium 8.7, Iron 62, TIBC 197 L, Iron Saturation 32.0, Unsaturated IBC 135 L, Ferritin 150, Total Bilirubin 2.68 H, Direct Bilirubin 1.15 H, AST 33 H, ALT < 5, Alkaline Phosphatase 77, Lactate Dehydrogenase 247 H,Total Protein 6.8, Albumin 3.0 L, Globulin 3.7, Albumin/Globulin Ratio 0.8 L, Blood Type O POSITIVE, Antibody Screen NEGATIVE 02/15/25 14:18: Urine Color Straw, Urine Clarity Clear, Urine pH 6.5, Ur Specific [place] 1.010, Urine Protein 30 H, Urine Glucose (UA) Normal, Urine Ketones 15 H, Urine Occult Blood 10 H, Urine Nitrite Negative, Urine Bilirubin Negative, Urine Urobilinogen 8 H, Ur Leukocyte Esterase Negative, Urine RBC 0-5 SEEN, Urine WBC 0-5 SEEN, Ur Squamous Epith Cells 5-10 SEEN, Urine Bacteria 0 SEEN, Urine Mucus 0 SEEN 02/15/25 16:16: POC Glucose 148 H 02/15/25 21:12: Retic Count 4.81 H, Immature Retic Fraction 12.50, Retic Hgb Equivalent 35.7 H 02/16/25 04:57: WBC 9.6, RBC 2.71 L, Hgb 8.7 L, Hct 24.1 L, MCV 88.9, MCH 32.1 H, MCHC 36.1 H, RDW Std Deviation 43.8, RDW Coeff of [place] 14.4, Plt Count 297, MPV9.5, Immature Gran % (Auto) 0.400, Neut % (Auto) 60.6, Lymph % (Auto) 27.3, [place]% (Auto) 9.3, Eos % (Auto) 1.9, Baso % (Auto) 0.5, Absolute Neuts (auto) 5.8, Absolute Lymphs (auto) 2.62, Nucleated RBC % 0, PT 14.6, INR 1.1, APTT 31.5, Sodium 133, Potassium 3.6, Chloride 102, Carbon Dioxide 19.9 L, Anion Gap 12, BUN 22 H, Creatinine 0.77, Estim Creat Clear Calc 44.44 L, Est GFR (MDRD) Non-Af 80, BUN/Creatinine Ratio 28.4 H, Glucose 155 H, Hemoglobin A1c 7.3 H, Calcium 8.9, Total Bilirubin 1.96 H, AST 34 H, ALT < 5, Alkaline Phosphatase 89, Total Protein 6.6, Albumin 3.0 L, Globulin 3.6, Albumin/Globulin Ratio 0.8 L, TSH 7.490 H 02/16/25 05:53: POC Glucose 151 H Radiography Diagnostic Testing: Radiology Impression Femur X-Ray 02/15/25 13:40 IMPRESSION: Comminuted impacted left intertrochanteric fracture. Reading Location: [facility] Hip/Pelvis X-Ray 02/15/25 13:40 IMPRESSION: Comminuted impacted left intertrochanteric fracture. Reading Location: [facility] Physical Exam Const alert and no apparent distress Constitutional Narrative: Up in chair. Nontoxic. No respiratory distress. Not requiring any oxygen. Resp normal respiratory effort, no retractions, no use of accessory muscles and clearto auscultation bilaterally Cardio regular rate, regular rhythm, S1 normal heart sound and S2 normal heart sound GI normal to inspection, nondistended, normoactive bowel sounds, soft to palpation,non-tender and non-distended Extremity Extremity Narrative: Surgical sites bandaged with 2 noncontinuous sites. No ecchymosis appreciated. No surrounding erythema. Assessment & Plan Assessment/Plan (1) Hip fracture: PLAN: left hip fracture Patient underwent a left femur cephalomedullary nailing with long gamma nail. ORIF. I ordered a 25-OH d level. The level was low at 10.7. Will start ergocalciferol. Bed rest. PLAN: Plan anemia: Estimated blood loss during surgery was 150 cc. 2 units of red blood cells have been ordered. Will follow-up CBC in the morning. DM2: a1c 7.3. SSI. Parkinson's disease: on carbidopa/levodopa Elevated TSH with a TSH 7.49, free T4 was normal at 1.1. No need for replacement at this time. VTE prophylaxis: SCDs. Charges/Coding Visit Charges Inpatient E&M: 27065 Subs Hosp L2 02/16/25 1531 <Electronically signed by Baldev Berry DO> Cosigner Signature (if applicable): CC: ~ Signed [facility] Work Phone: 1(545) 369-380706-27-2025 Progress note [facility] Medical Records Department [address] [place] [address] Progress Note - Hospitalist 02/16/25 0750 MR#: [id number] Acct: [id number] Name: SHASHI OSWALD Rep #:[id number] : 1945 79 From: Baldev Berry DO PCP: Dr. Candelario Santana MD Status:ADM I N Location: MS3 GA910-9 Reason for Visit Reason for Visit: Diagnoses Fracture of unspecified part of neck of unspecified femur, initial encounter forclosed fracture (02/15/25) Subjective Subjective Feeling well postop. Was ordered 2 units of blood from the heart. First is already finished transfusing patient unit ordered. No shortness of breath. Objective Data Objective Data Vital Signs: Vital Signs Temp Pulse Resp BP Pulse Ox O2 Del Method O2 Flow Rate 36.2 C L 58 L 16 110/66 100 Nasal Cannula 2 02/16/25 03:44 02/16/25 03:44 02/16/25 03:44 02/16/25 03:44 02/16/25 03:44 02/16/25 03:44 02/16/25 03:44 Oxygen Flow Rate (L/min) 2 Oxygen Delivery Method Nasal Cannula Weight: 57.289 kg Body Mass Index (BMI) 23.8 Intake & Output: Intake and Output for Last 24 Hours 02/14/25 02/15/25 02/16/25 23:59 23:59 23:59 Intake Total 1130 / 1130 Output Total 700 / 950 300 / 300 Balance 430 / 180 -300 / -300 Lab / Micro Data 02/16/25 04:57 02/16/25 04:57 Labs: Laboratory Results - last 24 hr 02/15/25 13:21: WBC 9.1, RBC 2.71 L, Hgb 8.7 L, Hct 24.0 L, MCV 88.6, MCH 32.1 H, MCHC 36.3 H, RDW Std Deviation 42.4, RDW Coeff of Cody 14.1, Plt Count 258, MPV9.6, Immature Gran % (Auto) 0.300, Neut% (Auto) 50.2, Lymph % (Auto) 38.6, [place]% (Auto) 8.7, Eos % (Auto) 1.8, Baso % (Auto) 0.4, AbsoluteNeuts (auto) 4.6, Absolute Lymphs (auto) 3.52, Nucleated RBC % 0, Sodium 133, Potassium 3.7, Chloride 100, Carbon Dioxide 18.1 L, Anion Gap 15, BUN 19, Creatinine 0.76, Estim Creat Clear Calc 50.65, Est GFR (MDRD) Non-Af 80, BUN/Creatinine Ratio 25.3 H, Glucose 155 H, Calcium 8.7, Iron 62, TIBC 197L, Iron Saturation 32.0, Unsaturated IBC 135 L, Ferritin 150, Total Bilirubin 2.68 H, Direct Bilirubin 1.15 H, AST 33 H, ALT < 5, Alkaline Phosphatase 77, Lactate Dehydrogenase 247 H,Total Protein6.8, Albumin 3.0 L, Globulin 3.7, Albumin/Globulin Ratio 0.8 L, Blood Type O POSITIVE, Antibody Screen NEGATIVE 02/15/25 14:18: Urine Color Straw, Urine Clarity Clear, Urine pH 6.5, Ur Specific [place] 1.010, Urine Protein 30 H, Urine Glucose (UA) Normal, Urine Ketones 15 H, Urine Occult Blood 10 H, Urine Nitrite Negative, Urine Bilirubin Negative, Urine Urobilinogen 8 H, Ur Leukocyte Esterase Negative, Urine RBC 0-5 SEEN, Urine WBC 0-5 SEEN, Ur Squamous Epith Cells 5-10 SEEN, Urine Bacteria 0 SEEN, Urine Mucus 0 SEEN 02/15/25 16:16: POC Glucose 148 H 02/15/25 21:12: Retic Count 4.81 H, Immature Retic Fraction 12.50, Retic Hgb Equivalent 35.7 H 02/16/25 04:57: WBC 9.6, RBC 2.71 L, Hgb 8.7 L, Hct 24.1 L, MCV 88.9, MCH 32.1 H, MCHC 36.1 H, RDW Std Deviation 43.8, RDW Coeff of [place] 14.4, Plt Count 297, MPV9.5, Immature Gran % (Auto) 0.400, Neut% (Auto) 60.6, Lymph % (Auto) 27.3, [place]% (Auto) 9.3, Eos % (Auto) 1.9, Baso % (Auto) 0.5, AbsoluteNeuts (auto) 5.8, Absolute Lymphs (auto) 2.62, Nucleated RBC % 0, PT 14.6, INR 1.1, APTT 31.5, Sodium 133, Potassium 3.6, Chloride 102, Carbon Dioxide 19.9 L, Anion Gap 12, BUN 22 H, Creatinine 0.77,Estim Creat Clear Calc 44.44 L, Est GFR (MDRD) Non-Af 80, BUN/Creatinine Ratio 28.4 H, Glucose 155 H, Hemoglobin A1c 7.3 H, Calcium 8.9, Total Bilirubin 1.96 H, AST 34 H, ALT < 5, Alkaline Phosphatase 89, Total Protein 6.6, Albumin 3.0 L, Globulin 3.6, Albumin/Globulin Ratio 0.8 L, TSH 7.490 H 02/16/25 05:53: POC Glucose 151 H Radiography Diagnostic Testing: Radiology Impression Femur X-Ray 02/15/25 13:40 IMPRESSION: Comminuted impacted left intertrochanteric fracture. Reading Location: [facility] Hip/Pelvis X-Ray 02/15/25 13:40 IMPRESSION: Comminuted impacted left intertrochanteric fracture. Reading Location: [facility] Physical Exam Const alert and no apparent distress Constitutional Narrative: Up in chair. Nontoxic. No respiratory distress. Not requiring any oxygen. Resp normal respiratory effort, no retractions, no use of accessory muscles and clearto auscultation bilaterally Cardio regular rate, regular rhythm, S1 normal heart sound and S2 normal heart sound GI normal to inspection, nondistended, normoactive bowel sounds, soft to palpation,non-tender and non-distended Extremity Extremity Narrative: Surgical sites bandaged with 2 noncontinuous sites. No ecchymosis appreciated. No surrounding erythema. Assessment & Plan Assessment/Plan (1) Hip fracture: PLAN: left hip fracture Patient underwent a left femur cephalomedullary nailing with long gamma nail. ORIF. I ordered a 25-OH d level. The level was low at 10.7. Will start ergocalciferol. Bed rest. PLAN: Plan anemia: Estimated blood loss during surgery was 150 cc. 2 units of red blood cells have been ordered. Will follow-up CBC in the morning. DM2: a1c 7.3. SSI. Parkinson's disease: on carbidopa/levodopa Elevated TSH with a TSH 7.49, free T4 was normal at 1.1. No need for replacement at this time. VTE prophylaxis: SCDs. Charges/Coding Visit Charges Inpatient E&M: 27963 Subs Hosp L2 02/16/25 1531 Cosigner Signature (if applicable): CC: ~ Signed [facility]06-27-2025 Procedure note [facility] Medical Records Department [address] [place] [address] Operative Report 02/16/25 1502 MR#: [id number] Acct: [id number] Name: SHASHI OSWALD Rep #:[id number] : 1945 79 From: Matt Chacon MD PCP: Dr. Candelario Santana MD Status:ADM I N Location: MS3 [id number] Procedures Musculoskeletal 20xxx-29xxx: Other Procedure See Report Operative Report (Standard) Operative Information Date of Procedure: 02/16/25 Pre-Operative Diagnosis: Left femur intertrochanteric fracture with subtrochanteric extension, displaced Post-Operative Diagnosis: Same Surgery/Procedure Performed: Left femur cephalomedullary nailing with long gammanail, open reduction internal fixation campus chaplain: Yes Manager Utilization Management: Holden Delgadillo Tasks completed by mate first: Closing, Implanting device and Retracting Type of Anesthesia: General RN Documented Start/Stop Times: Operation Date: 02/16/25 09:00 Case Time Anesthesia Start 02/16/25 00:19 Into Pre-Op 02/16/25 07:56 Into Room 02/16/25 09:19 Procedure Start 02/16/25 10:03 Procedure End 02/16/25 12:22 Anesthesia End 02/16/25 12:33 Out of Room 02/16/25 12:33 Into Recovery 02/16/25 12:37 Out of Recovery 02/16/25 14:44 Procedure Start Time: 10:03 Procedure Stop Time: 12:22 Select all DRAINS/GRAFTS/IMPLANTS that apply: Implanted device Implanted device details: Ilion gamma 4 cephalomedullary nail Estimated Blood Loss: 150 cc Specimen collected: No Description of surgery: Operative Report Pre-operative Diagnosis: Left displaced intertrochanteric Femur Fracture with subtrochanteric extension Post-operative Diagnosis: Same Procedure(s) Performed: Left femur open reduction internal fixation, Cephalmedullary Nailing CPT 87742, modifier 22, old fracture requiring significant fracture debridement and difficult open reduction attempts Surgeon: Dr. Matt Chacon MD Pattern Drum Maker: None Estimated Blood Loss: 150 ml Anesthesia: General Drains: None Specimens: None Implants: Daniel Gamma4 Trochanteric Nail 360 x 11 mm, 125 degree, 95 mm lag screw Complications: None Condition: stable Indications: 79-year-old lady who had a ground-level fall about a week ago and sustained a left displaced intertrochanteric femur Fracture with subtrochanteric extension. Patient stayed at home and did not seek medical attention after this fall and fracture and was bedridden for almost a week. We discussed the benefits and risks of the procedure including but not limited toinfection, bleeding, injury to nerves and vessels, limb length discrepancy, nonunion, malunion, hardware failure, osiris-implant fracture, hip and knee stiffness, persistentpain, difficulty to ambulate, DVT, pulmonary embolism, cardiopulmonary event, need for further surgeries. The patient concurred with the proposed plan, giving informed consent. Procedure Details: The patient was seen in the pre-operative preparation area. The site of surgery was verbally confirmed and marked by the surgical team. The patient was properly identified by the unique identifiers and was then at that time transported to the operative theater by [facility]. A Time Out was held and the above information confirmed. Both lower extremities were placedon the fracture table with the contralateral extremity extended down to allow C-arm to come in. Close reduction maneuver was attempted, but since the fracture was 1 week old and had severe overlap and shortening, adequate reduction and bony contact could not be achieved. Decision was made to open the fracture for open reduction at the fracture site. Operative area was prepped and draped in a sterile fashion. Final timeout was performed. With the help of C-arm incision was marked. About 3 inch incision was made laterally centering at the level of the fracture of the subtrochanteric region. Deep fascia was incised longitudinally. Vastus lateralis was split longitudinally and fracture site was exposed. Fracture surfaces were identified and curetted to remove any healing granulation tissue. Multiple reduction maneuvers using bone clamps, bone hook were utilized to allowfor reduction at the fracture site. Due to the old fracture, it was difficult but adequate reduction was then achieved and held together with bone clamps. This was confirmed on both AP and lateral C-arm views. A 4 cm Incision was made proximal to the greater trochanter. An appropriate greater trochanter starting point was found using the starting wire under fluoroscopy. The wire was then drilled to the metadiaphyseal region of the femur. The opening reamer was then drilled into the metadiaphysis under fluoro. A ball tip guide wire was then placed down the femur. Sequential flexible reaming was performed up to 12.5 mm. Length of the long gamma nail was measuredwith the help of guidewire and measuring tool. 360 x 11 mm, 125 degree Gamma Nail was then placed into the intramedullary canalof the femur and placement was verified with fluoroscopy and advanced to an appropriate level to allow placement of the lag screw. Guidewire was removed. We then drilled the wire for the lag screw up the neck of the femur under fluoroscopic guidance. AP and lateral x-rays showed good positioning of the wirethrough the neck into the head with good tip apex distance. The wire was then measured. Cannulated drill was used to drill a channel for the lag screw and a 95 mm lag screw was placed up the neck of the femur. Fracture reduction was held throughout this process with clamps under visualization. Although the fracture reduction was not perfect, adequate bony contact was achieved and maintained. 2 distal static interlocking screws 40 mm and 42 mm in the proximal 2 of the distal 3 interlocking screw holes. Was placed with the help of the C-arm with perfect white earth technique. This was placed inthe proximal end of the oblong hole. Final fluorscopic images were then taken and the placement of the intramedullary device and fracture was deemed appropriate. The wounds were irrigated copiously with sterile solution. Vastus lateralis and the deep fascia was closed with 0 vicryl suture in separate layers. The deep dermal layer was closed with 2-0 vicryl suture. Oscar were used to close the skin. Aquacel dressing was used, the incisions. The patient was then awaken, extubated and taken to the PACU. I was present and scrubbed for the entire procedure. Postoperative plan: Patient will be WBAT. Recommend PT/OT evaluation Pain Control F/u Outpatient in 2 weeks Surgical Findings: See operative note Complications Complications: No 02/16/25 1512 Cosigner Signature (if applicable): CC: Dr. Matt Chacon MD; Dr. Lakeshia Mas MD; Dr. Candelario Santana MD; Dr. Terry, DO~ Signed [facility]06-27-2025 Consult note Author Sheridan Mcknight [facility] Note Date/Time February 16, 2025 12:5 0pm [facility] Medical Records Department [address] [place] [address] Anesthesia Postop Eval I 02/16/25 1248 MR#: [id number] Acct: [id number] Name: SHASHI OSWALD Rep #:[id number] : 1945 79 From: Sheridan simmons CRNA PCP: Dr. Candelario Santana MD Status:ADM I N Y Race: C Location: [facility]308 -1 Anesthesia: Postop Eval I Current Vital Signs Temperature: 99.2 F Pulse Rate: 98 Blood Pressure: 99/61 Respiratory Rate: 16 Pulse Ox: 100 Oxygen Delivery Method: Room Air Assessment Airway patent: Yes Spontaneous unlabored respirations: Yes Mental status: Awake and Calm nausea: No Vomiting: No Anesthesia Complication: No Fluid Hydration Crystalloid volume administer (ml): 2,400 Total IV fluid infused: 2,400 Progress Note Post-operative progress note: to receive 2 units of PRBCs, awaiting from blood bank, Dr. Zaman aware of units to be received and pressor requirements during case; currently weaned off and BP stable. Anesthesia document: Postop Eval 1 completed: Yes 02/16/25 1250 <Electronically signed by Sheridan jensen CRNA> Date _ Sheridan Mcknight CRNA Cosigner Signature: Date CC: ~ Signed [facility] Work Phone: [phone]) 145-311006-27-2025 Radiology Diagnostic study note [facility] Imaging Services [address] [place] [address] Hip Min 2 Views (Portable) MR#: [id number] Acct: [id number] Name: SHASHI OSWALD Rep #: [id number] : 1945 F 79 From: Hector Talley MD PCP: Dr. Candelario Santana MD Status: ADM I N Study:Hip Min 2 Views (Portable) Date of Exam : 02/16/25 Exam# [id number] Ordering Dr: Ronal Chacon MD PROCEDURE: HIP MIN 2 VIEWS (PORTABLE); O.R. FLUORO FOR C-ARM 02/16/2025 REASON FOR EXAM: ORIF LT HIP GAMMA NAIL TECHNIQUE: Intraoperative fluoroscopy was performed for fracture fixation of the proximal left femur. A total of 24 fluoroscopic images were obtained. Fluoroscopy time: 93.3 seconds. Dose: 15.02 mGy COMPARISON: Left hip and pelvis study of 02/15/2025. RAD/Hip Min 2 Views (Portable) IMPRESSION: Intraoperative fluoroscopy was performed for fracture fixation of the proximal left femur. A total of 24 fluoroscopic images were obtained. Reading Location: [place] [address] CC: Dr. Matt Chacon MD; Dr. Candelario Santana MD ~ Burrer Operator: Signed [facility]06-27-2025 Radiology Diagnostic study note [facility] Imaging Services [address] [place] [address] O.R. Fluoro for C-Arm MR#: [id number] Acct: [id number] Name: SHASHI OSWALD Rep #: [id number] : 1945 F 79 From: Hector Talley MD PCP: Dr. Candelario Santana MD Status: ADM I N Study:O.R. Fluoro for C-Arm Date of Exam: 02/16/25 Exam# [id number] Ordering Dr: Ronal Chacon MD PROCEDURE: HIP MIN 2 VIEWS (PORTABLE); O.R. FLUORO FOR C-ARM 02/16/2025 REASON FOR EXAM: ORIF LT HIP GAMMA NAIL TECHNIQUE: Intraoperative fluoroscopy was performed for fracture fixation of the proximal left femur. A total of 24 fluoroscopic images were obtained. Fluoroscopy time: 93.3 seconds. Dose: 15.02 mGy COMPARISON: Left hip and pelvis study of 02/15/2025. RAD/O.R. Fluoro for C-Arm IMPRESSION: Intraoperative fluoroscopy was performed for fracture fixation of the proximal left femur. A total of 24 fluoroscopic images were obtained. Reading Location: [place] [address] CC: Dr. Matt Chacon MD; Dr. Candelario Santana MD ~ Burrer Operator: Signed [facility]06-27-2025 Consult note [facility] Medical Records Department [address] [place] [id number] Anesthesia Postop Eval I 02/16/25 1248 MR#: [id number] Acct: [id number] Name: SHASHI OSWALD Rep #:[id number] : 1945 79 From: Sheridan simmons CRNA PCP: Dr. Candelario Santana MD Status:ADM I N Y Race: C Location: [place] [address] Anesthesia: Postop Eval I Current Vital Signs Temperature: 99.2 F Pulse Rate: 98 Blood Pressure: 99/61 Respiratory Rate: 16 Pulse Ox: 100 Oxygen Delivery Method: Room Air Assessment Airway patent: Yes Spontaneous unlabored respirations: Yes Mental status: Awake and Calm nausea: No Vomiting: No Anesthesia Complication: No Fluid Hydration Crystalloid volume administer (ml): 2,400 Total IV fluid infused: 2,400 Progress Note Post-operative progress note: to receive 2 units of PRBCs, awaiting from blood bank, Dr. Zaman aware of units to be received and pressor requirements during case; currently weaned off and BP stable. Anesthesia document: Postop Eval 1 completed: Yes 02/16/25 1250 nski VESSEL SCRAPPER HELPER> Date _ Sheridan Mcknight VESSEL SCRAPPER HELPER Cosigner Signature: Date CC: ~ Signed [facility]06-27-2025 Consult note Author Matt Chacon [facility] Note Date/Time February 16, 2025 9:23 am [facility] Medical Records Department [address] [place] [address] Consultation - Orthopedics 02/16/25912 MR#: [id number] Acct: [id number] Name: SHASHI OSWALD Rep #:[id number] : 1945 79 From: Matt Chacon MD PCP: Dr. Candelario Santana MD Status:ADM I N Location: RI3 XG060-1 HPI Consult Data Date of Consult: 02/16/25 HPI Narrative HPI Narrative: SHASHI OSWALD, is a 79 F who presents with left hip pain for a week after fall a week ago which was ground-level at home. She said that she fell on a deck and she tripped. She was unable to stand and walk by herself and she was carried by her son onto a chair and then she was laying down for a week. She refused to go to the hospital initially but since the pain worsened she came to the hospital yesterday. Prior to the fall she wasable to ambulate without any ambulatory aid. She was mainly housebound elevatedbut did go some grocery runs. Denied any significant balance issues or limping prior to the fall. She is a known diabetic. Denies any blood thinners. She is anemic with hemoglobin 8.7. [facility] Medical History Hyperthyroidism Rheumatoid arthritis Kidney stones Asthma Irregular heart beat Chest pain Migraines Parkinson's disease Wears glasses Rash Thyroid disease Diabetes Arthritis Restless legs Syncope Dietary restriction Non-smoker Leg cramps Hypertension Chronic anemia Hypothyroidism Diabetes mellitus, type 2 Hypertension Home Medications ?Medication ?Instructions ?Recorded ?Last Taken ?Type carbidopa 25 mg-levodopa 100 mg 1 tab PO TID 02/15/25 02/15/25 History tablet losartan 50 mg tablet 50 mg PO DAILY 02/15/25 06/02/14 History Allergy/AdvReac Type Severity Reaction Status Date [...] do you feel safe at home: Yes Vital Signs Vital Signs Vital Signs: 02/15/25 13:11 02/15/25 15:00 02/15/25 15:32 Temperature 98.3 F 98.6 F Temperature Source Oral Pulse Rate 98 78 Pulse Strength Respiratory Rate 16 15 Respiratory Effort Respiratory Depth Respiratory Pattern Blood Pressure 105/74 113/66 113/66 Blood Pressure Mean 84 79 81 Blood Pressure Source Blood Pressure Position Blood Pressure Location Pulse Ox 100 100 100 Oxygen Delivery Method Room Air Oxygen Flow Rate (L/min) 02/15/25 16:04 02/15/25 16:09 02/15/25 19:45 Temperature 98.9 F Temperature Source Oral Pulse Rate 72 Pulse Strength Normal (2+) Respiratory Rate 12 Respiratory Effort Normal Non-Labored Respiratory Depth Normal Respiratory Pattern Normal Blood Pressure 98/53 L Blood Pressure Mean 68 Blood Pressure Source Monitor Blood Pressure Position Semi-Fowlers Blood Pressure Location Left Arm Pulse Ox 100 Oxygen Delivery Method Nasal Cannula Nasal Cannula Oxygen Flow Rate (L/min) 2 2 02/15/25 19:45 02/15/25 19:45 02/16/25 03:44 Temperature 99.1 F Temperature Source Temporal Pulse Rate 85 85 58 L Pulse Strength Respiratory Rate 16 16 16 Respiratory Effort Normal Non-Labored Normal Non-Labored Respiratory Depth Normal Normal Respiratory Pattern Normal Normal Blood Pressure 100/53 L Blood Pressure Mean 68 Blood Pressure Source Monitor Blood Pressure Position Semi-Fowlers Blood Pressure Location Left Arm Pulse Ox 99 99 100 Oxygen Delivery Method Nasal Cannula Nasal Cannula Nasal Cannula Oxygen Flow Rate (L/min) 2 2 2 02/16/25 03:44 02/16/25 08:45 Temperature 97.1 F L 97.1 F L Temperature Source Tympanic Pulse Rate 58 L 58 L Pulse Strength Respiratory Rate 16 16 Respiratory Effort Respiratory Depth Respiratory Pattern Blood Pressure 110/66 110/66 Blood Pressure Mean 80 Blood Pressure Source Monitor Blood Pressure Position Semi-Fowlers Blood Pressure Location Right Arm Pulse Ox 100 100 Oxygen Delivery Method Nasal Cannula Room Air Oxygen Flow Rate (L/min) 2 2 Weight Weight: 126 lb 4.8 oz Body Mass Index (BMI) 23.8 Physical Exam Narrative Patient with left hip shows significant pain and tenderness. Logrolling is painful. No significant is around the left knee joint and distally in the left lower extremity. Distal neurovascular exam is intact. Right lower extremity shows full painless range of motion throughout. Lab / Micro Data 02/16/25 04:57 02/16/25 04:57 Labs: Laboratory Results - last 24 hr 02/15/25 13:21: WBC 9.1, RBC 2.71 L, Hgb 8.7 L, Hct 24.0 L, MCV 88.6, MCH 32.1 H, MCHC 36.3 H, RDW Std Deviation 42.4, RDW Coeff of Cody 14.1, Plt Count 258, MPV9.6, Immature Gran % (Auto) 0.300, Neut % (Auto) 50.2, Lymph % (Auto) 38.6, [place]% (Auto) 8.7, Eos % (Auto) 1.8, Baso % (Auto) 0.4, Absolute Neuts (auto) 4.6, Absolute Lymphs (auto) 3.52, Nucleated RBC % 0, Sodium 133, Potassium 3.7, Chloride 100, Carbon Dioxide 18.1 L, Anion Gap 15, BUN 19, Creatinine 0.76, Estim Creat Clear Calc 50.65, Est GFR (MDRD) Non-Af 80, BUN/Creatinine Ratio 25.3 H, Glucose 155 H, Calcium 8.7, Iron 62, TIBC 197 L, Iron Saturation 32.0, Unsaturated IBC 135 L, Ferritin 150, Total Bilirubin 2.68 H, Direct Bilirubin 1.15 H, AST 33 H, ALT < 5, Alkaline Phosphatase 77, Lactate Dehydrogenase 247 H,Total Protein 6.8, Albumin 3.0 L, Globulin 3.7, Albumin/Globulin Ratio 0.8 L, Blood Type O POSITIVE, Antibody Screen NEGATIVE 02/15/25 14:18: Urine Color Straw, Urine Clarity Clear, Urine pH 6.5, Ur Specific [place]oshone 1.010, Urine Protein 30 H, Urine Glucose (UA) Normal, Urine Ketones 15 H, Urine Occult Blood 10 H, Urine Nitrite Negative, Urine Bilirubin Negative, Urine Urobilinogen 8 H, Ur Leukocyte Esterase Negative, Urine RBC 0-5 SEEN, Urine WBC 0-5 SEEN, Ur Squamous Epith Cells 5-10 SEEN, Urine Bacteria 0 SEEN, Urine Mucus 0 SEEN 02/15/25 16:16: POC Glucose 148 H 02/15/25 21:12: Retic Count 4.81 H, Immature Retic Fraction 12.50, Retic Hgb Equivalent 35.7 H 02/16/25 04:57: WBC 9.6, RBC 2.71 L, Hgb 8.7 L, Hct 24.1 L, MCV 88.9, MCH 32.1 H, MCHC 36.1 H, RDW Std Deviation 43.8, RDW Coeff of Cody 14.4, Plt Count 297, MPV9.5, Immature Gran % (Auto) 0.400, Neut % (Auto) 60.6, Lymph % (Auto) 27.3, [place]% (Auto) 9.3, Eos % (Auto) 1.9, Baso % (Auto) 0.5, Absolute Neuts (auto) 5.8, Absolute Lymphs (auto) 2.62, Nucleated RBC % 0, PT 14.6, INR 1.1, APTT 31.5, Sodium 133, Potassium 3.6, Chloride 102, Carbon Dioxide 19.9 L, Anion Gap 12, BUN 22 H, Creatinine 0.77, Estim Creat Clear Calc 44.44 L, Est GFR (MDRD) Non-Af 80, BUN/Creatinine Ratio 28.4 H, Glucose 155 H, Hemoglobin A1c 7.3 H, Calcium 8.9, Total Bilirubin 1.96 H, AST 34 H, ALT < 5, Alkaline Phosphatase 89, Total Protein 6.6, Albumin 3.0 L, Globulin 3.6, Albumin/Globulin Ratio 0.8 L, TSH 7.490 H 02/16/25 05:53: POC Glucose 151 H Imaging Radiology Impression Femur X-Ray 02/15/25 13:40 IMPRESSION: Comminuted impacted left intertrochanteric fracture. Reading Location: [facility] Hip/Pelvis X-Ray 02/15/25 13:40 IMPRESSION: Comminuted impacted left intertrochanteric fracture. Reading Location: [facility] Assessment & Plan Assessment/Plan (1) Intertrochanteric fracture of left femur: QUALIFIERS: Encounter type: initial encounter Fracture type: closed Fracture alignment: displaced Qualified Code(s): S72.142A - Displaced intertrochanteric fracture of left femur, initial encounter for closed fracture PLAN: Plan Reviewed x-rays done in the ER last night. Patient has a displaced intertrochanter fracture of the left femur with subtrochanteric extension. There is significant overlap and shortening. Discussed imaging findings with the patient. Explained to her that this is surgical injury and will require surgical fixation in order to allow early return to ambulatory function. I recommend open reduction internal fixation with long gamma nail. All risk benefits and alternatives were discussed in detail with the risks include but are not limited to infection, bleeding, injuryto nerves and vessels, hematoma formation, need for further surgery, osiris-implant fracture, hardware failure, nonunion, malunion, need for further surgery, need for hyper basement, DVT, pulm embolism, pneumonia, atelectasis, cardiopulmonary event. Patient understands and agrees to proceed with surgery. Consent was signed. Charges/Coding Visit Charges Inpatient E&M: 39026 Init Hosp L3 02/16/25917 <Electronically signed by Matt Chacon MD> Cosigner Signature (if applicable): CC: Dr. Baldev Berry DO; Dr. Candelario Santana MD; Dr. Abdirashid Cano DO~ Signed ADDENDUM by Dr. Matt Chacon MD on 02/16/25 at 0923 Addendum Tried to reach both Ash and sai Owens of the patient to update about proceeding with surgery and asked if they have any questions. Both phone numbers were not reachable. Patient has consented to the surgery and wishes to proceed. 02/16/25922<Electronically signed by Matt Chacon MD> Cosigner Signature (if applicable): cc: Dr. Baldev Berry DO; Dr. Candelario Santana MD; Dr. Abdirashid Cano DO ~* Signed [facility] Work Phone: 1(739) 214-944106-27-2025 Consult note Author Bi Zaman [facility] Note Date/Time February 16, 2025 8:45 am [facility] Medical Records Department [address] [place] [address] Pre-Anesthesia Evaluation 02/16/25 0836 MR#: [id number] Acct: [id number] Name: SHASHI OSWALD Rep #:[id number] : 1945 79 From: Bi Zaman MD PCP: Dr. Candelario Santana MD Status:ADM I N Y Race: C Location: [place] [address] ASA Classification* ASA Classification ASA Classification: 3 Assessment & Plan Anesthesia* Anesthesia Assessment Anesthesia Assessment: Discussed sedation and/or anesthesia options, risks, benefits, and alternatives with patient/parents/legal guardian/POA. Questions invited. The patient/parents/legal guardian/POA seems to understand and agrees to proceedwith anesthesia plan. Reviewed the physical assessment, medical history, allergy history and patient home medications list prior to surgery/procedure/anesthetic and documented any changes. Performed airway and anesthesia risk assessments. Anesthesia Type Anesthesia Type: General History Source History Obtained from:: Patient and Chart Anesthesia Focused Assessment* Temperature: 97.1 F Pulse Rate: 58 Blood Pressure: 110/66 Respiratory Rate: 16 Pulse Ox: 100 Oxygen Delivery Method: Room Air Oxygen Flow Rate (L/min): 2 Airway Assessment Mouth opens: >3 cm Mallampati Score: III Teeth Condition: Missing (Multiple missing teeth) Neck Range of motion (ROM): Limited ROM (Slight decrease in extension) Labs Anesthesia Preop lab: CBC WBC 9.6 K/mm3 (4.4-11.0) 02/16/25 04:57 02/16/25 RBC 2.71 M/mm3 (4.2-5.4) L 02/16/25 04:57 02/16/25 Hgb 8.7 g/dL (12.0-15.0) L 02/16/25 04:57 02/16/25 Hct 24.1 % (37-47) L 02/16/25 04:57 02/16/25 Plt Count 297 K/mm3 (150-450) 02/16/25 04:57 02/16/25 CHEMISTRY Potassium 3.6 mmol/L (3.3-5.1) 02/16/25 04:57 02/16/25 Sodium 133 mmol/L (133-145) 02/16/25 04:57 02/16/25 Magnesium 2.0 mg/dL (1.6-2.6) 03/20/22 03:03 03/20/22 BUN 22 mg/dL (4-19) H 02/16/25 04:57 02/16/25 Creatinine 0.77 mg/dL (0.70-1.20) 02/16/25 04:57 02/16/25 Glucose 155 mg/dL (70-99) H 02/16/25 04:57 02/16/25 POC Glucose 151 mg/dL (74-106) H 02/16/25 05:53 02/16/25 TSH 7.490 uIU/mL (0.300-4.200) H 02/16/25 04:57 COAG PT 14.6 SECONDS (11.7-14.9) 02/16/25 04:57 Pre-Assessment Diagnosis/Proposed Procedure Planned Operative Procedure(s): Left hip ORIF. Gamma nail. 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 When Was Last Pacemaker Check QUESTION #4 FULL TEXT: You/Your Family Experience fever (hyperthermia) with Anesthesia Last Oral Intake Last Oral intake: Last Oral Intake NPO since Meds taken in AM with sips of water? Meds patient instructed to take am of surgery Any additional information?: Yes NPO since: 00:00 PONV PONV - professor of finance: PONV - professor of finance Female HX of Motion Sickness HX of N/V After Surgery Non-Smoker Duration of Surgery greater than 60 minutes Number of Risk Factors PONV Score Height & Weight Height & Weight: Anesthesia: Height & Weight Height 5 ft 1 in 02/15/25 16:04 Weight: 57.289 kg 02/15/25 16:04 Body Mass Index (BMI) 23.8 02/15/25 16:04 Respiratory Assessment Respiratory Assessment - professor of finance: Respiratory Tract Infection Hx - professor of finance Hx Respiratory Tract Infection No 02/16/25 00:28 STOP Sleep Apnea STOP Sleep Apnea - professor of finance: STOP Sleep Apnea - professor of finance Hx Hypertension Yes: CONTROLLED WITH MED 02/15/25 16:04 Hx Sleep Apnea No 02/15/25 16:04 CPAP BIPAP Do you snore loudly (louder Yes 02/15/25 16:04 than talking or can be heard Do you often feel tired/ Yes 02/15/25 16:04 fatigued/ sleepy during daytime? Has anyone observed you stop No 02/15/25 16:04 breathing during sleep? STOP Results Positive 02/15/25 16:04 QUESTION #5 FULL TEXT : Do you snore loudly (louder than talking or can be heard through closed doors)? 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 Specify any problems Hx of Preganancy in last 3 N/A 02/15/25 16:04 Months Nurse Filling Out Transfusion FSTEINER 02/15/25 16:04 & Questions: Date: 02/15/25 02/15/25 16:04 Time: 16:02/15/25 16:04 Patient unable to answer at this time (ie. confused, unrespo /Reproduction History /Reproductive History - professor of finance: /Reproductive Hx- professor of finance Hx Now Gestational Age (in weeks): EDC: Hx Hx Para Hx Section SAB No 11/20/22 12:16 Active Medications Active Medications: Current Medications Generic Name Dose Route Start Last Admin Trade Name Freq PRN Reason Stop Dose Admin Acetaminophen 1,000 mg 02/15/25 22:00 02/16/25 05:38 Acetaminophen 500 Mg Tablet PO 1,000 mg Q8 GIORGI Administration Albuterol Sulfate 2.5 mg 02/15/25 16:01 Albuterol 2.5 Mg/3 Ml Vial.Neb. INHALATION Q2H PRN PRN SOB &/OR WHEEZING Carbidopa/Levodopa 1 tablet 02/15/25 22:00 02/16/25 05:38 Carbidopa/Levodopa 25/100 Tablet PO 1 tablet TID GIORGI Administration Glucagon 1 mg 02/15/25 16:01 Glucagon 1 Mg/Ml Syringe IM X1 PRN HYPOGLYCEMIA Protocol Dextrose 250 mls @ 0 mls/hr 02/15/25 16:01 Dextrose 10%-Water IV .Q0M PRN HYPOGLYCEMIA Protocol As Directed Sodium Chloride 250 mls @ 15 mls/hr 02/15/25 16:08 IV .[id number] PRN Saline Flush Sodium Chloride 250 mls @ 15 mls/hr 02/15/25 16:08 IV .[id number] PRN Additional IVPB Infusion Lactated Ringer's 1,000 mls @ 15 mls/hr 02/16/25 08:15 02/16/25 08:15 IV 15 mls/hr .Q48H GIORGI Administration Insulin Human Lispro 0 unit 02/15/25 16:01 02/16/25 05:58 Insulin Lispro 100 Unit/Ml Insuln.Pen SC 1 units TIDAC GIORGI Administration Protocol Ketorolac Tromethamine 15 mg 02/15/25 16:01 Ketorolac 15 Mg/Ml Vial IV 02/20/25 16:01 Q6H PRN PRN Pain Score 1-10 Melatonin 10 mg 02/15/25 16:01 Melatonin 10 Mg Tablet PO QHS PRN PRN INSOMNIA Morphine Sulfate 2 mg 02/15/25 16:01 Morphine 2 Mg/Ml Syringe IV Q3H PRN PRN Pain Score 6-10 Nutritional Formula (Lactose Free) 120 ml 02/16/25 10:00 02/16/25 07:25 Glucerna Shake 120 Ml Liquid PO Not Given 4X/DAY GIORGI Ondansetron HCl 4 mg 02/15/25 16:01 Ondansetron 4 Mg/2 Ml Vial IV Q8H PRN PRN NAUSEA/VOMITING Oxycodone HCl 5 mg 02/15/25 16:01 Oxycodone 5 Mg Tablet PO Q4H PRN PRN Pain Score 4-10 Senna/Docusate Sodium 2 tablet 02/15/25 22:00 02/16/25 07:25 Senna/Docusate Sodium 1 Tablet PO Not Given BID GIORGI Sodium Chloride 10 - 40 ml 02/15/25 16:08 0.9% Saline Lock 10 Ml Syringe IV UD PRN SALINE FLUSH PFSH Medical History Hyperthyroidism Rheumatoid arthritis Kidney stones Asthma Irregular heart beat Chest pain Migraines Parkinson's disease Wears glasses Rash Thyroid disease Diabetes Arthritis [...] do you feel safe at home: Yes Review of Systems (Anesthesia) ROS Narrative System reviewed and no additional complaints, except as documented. Physical Exam Resp clear to auscultation bilaterally 02/16/25 0845 <Electronically signed by Bi mendez MD> Date _ Bi Zaman MD Cosigner Signature: Date CC: ~ Signed [facility] Work Phone: [phone] Consult note [facility] Medical Records Department [address] [place] [address] Consultation - Orthopedics 02/16/25912 MR#: [id number] Acct: [id number] Name: SHASHI OSWALD Rep #:[id number] : 1945 79 From: Matt Chacon MD PCP: Dr. Candelario Santana MD Status:ADM I N Location: RI3 GP638-5 HPI Consult Data Date of Consult: 02/16/25 HPI Narrative HPI Narrative: SHASHI OSWALD, is a 79 F who presents with left hip pain for a week after fall a week ago which was ground-level at home. She said that she fell on a deck and she tripped. She was unable to stand and walk by herself and she was carried by her son onto a chair and then she was laying down for a week. She refused to go tothe hospital initially but since the pain worsened she came to the hospital yesterday. Prior to thefall she wasable to ambulate without any ambulatory aid. She was mainly housebound elevatedbut did go some grocery runs. Denied any significant balance issues or limping prior to the fall. She is a known diabetic. Denies any blood thinners. She is anemic with hemoglobin 8.7. [facility] Medical History Hyperthyroidism Rheumatoid arthritis Kidney stones Asthma Irregular heart beat Chest pain Migraines Parkinson's disease Wears glasses Rash Thyroid disease Diabetes Arthritis [...] do you feel safe at home: Yes Vital Signs Vital Signs Vital Signs: 02/15/25 13:11 02/15/25 15:00 02/15/25 15:32 Temperature 98.3 F 98.6 F Temperature Source Oral Pulse Rate 98 78 Pulse Strength Respiratory Rate 16 15 Respiratory Effort Respiratory Depth Respiratory Pattern Blood Pressure 105/74 113/66 113/66 Blood Pressure Mean 84 79 81 Blood Pressure Source Blood Pressure Position Blood Pressure Location Pulse Ox 100 100 100 Oxygen Delivery Method Room Air Oxygen Flow Rate (L/min) 02/15/25 16:04 02/15/25 16:09 02/15/25 19:45 Temperature 98.9 F Temperature Source Oral Pulse Rate 72 Pulse Strength Normal (2+) Respiratory Rate 12 Respiratory Effort Normal Non-Labored Respiratory Depth Normal Respiratory Pattern Normal Blood Pressure 98/53 L Blood Pressure Mean 68 Blood Pressure Source Monitor Blood Pressure Position Semi-Fowlers Blood Pressure Location Left Arm Pulse Ox 100 Oxygen Delivery Method Nasal Cannula Nasal Cannula Oxygen Flow Rate (L/min) 2 2 02/15/25 19:45 02/15/25 19:45 02/16/25 03:44 Temperature 99.1 F Temperature Source Temporal Pulse Rate 85 85 58 L Pulse Strength Respiratory Rate 16 16 16 Respiratory Effort Normal Non-Labored Normal Non-Labored Respiratory Depth Normal Normal Respiratory Pattern Normal Normal Blood Pressure 100/53 L Blood Pressure Mean 68 Blood Pressure Source Monitor Blood Pressure Position Semi-Fowlers Blood Pressure Location Left Arm Pulse Ox 99 99 100 Oxygen Delivery Method Nasal Cannula Nasal Cannula Nasal Cannula Oxygen Flow Rate (L/min) 2 2 2 02/16/25 03:44 02/16/25 08:45 Temperature 97.1 F L 97.1 F L Temperature Source Tympanic Pulse Rate 58 L 58 L Pulse Strength Respiratory Rate 16 16 Respiratory Effort Respiratory Depth Respiratory Pattern Blood Pressure 110/66 110/66 Blood Pressure Mean 80 Blood Pressure Source Monitor Blood Pressure Position Semi-Fowlers Blood Pressure Location Right Arm Pulse Ox 100 100 Oxygen Delivery Method Nasal Cannula Room Air Oxygen Flow Rate (L/min) 2 2 Weight Weight: 126 lb 4.8 oz Body Mass Index (BMI) 23.8 Physical Exam Narrative Patient with left hip shows significant pain and tenderness. Logrolling is painful. No significant is around the left knee joint and distally in the left lower extremity. Distal neurovascular exam isintact. Right lower extremity shows full painless range of motion throughout. Lab / Micro Data 02/16/25 04:57 02/16/25 04:57 Labs: Laboratory Results - last 24 hr 02/15/25 13:21: WBC 9.1, RBC 2.71 L, Hgb 8.7 L, Hct 24.0 L, MCV 88.6, MCH 32.1 H, MCHC 36.3 H, RDW Std Deviation 42.4, RDW Coeff of Cody 14.1, Plt Count 258, MPV9.6, Immature Gran % (Auto) 0.300, Neut% (Auto) 50.2, Lymph % (Auto) 38.6, [place]% (Auto) 8.7, Eos % (Auto) 1.8, Baso % (Auto) 0.4, AbsoluteNeuts (auto) 4.6, Absolute Lymphs (auto) 3.52, Nucleated RBC % 0, Sodium 133, Potassium 3.7, Chloride 100, Carbon Dioxide 18.1 L, Anion Gap 15, BUN 19, Creatinine 0.76, Estim Creat Clear Calc 50.65, Est GFR (MDRD) Non-Af 80, BUN/Creatinine Ratio 25.3 H, Glucose 155 H, Calcium 8.7, Iron 62, TIBC 197L, Iron Saturation 32.0, Unsaturated IBC 135 L, Ferritin 150, Total Bilirubin 2.68 H, Direct Bilirubin 1.15 H, AST 33 H, ALT < 5, Alkaline Phosphatase 77, Lactate Dehydrogenase 247 H,Total Protein6.8, Albumin 3.0 L, Globulin 3.7, Albumin/Globulin Ratio 0.8 L, Blood Type O POSITIVE, Antibody Screen NEGATIVE 02/15/25 14:18: Urine Color Straw, Urine Clarity Clear, Urine pH 6.5, Ur Specific [place] 1.010, Urine Protein 30 H, Urine Glucose (UA) Normal, Urine Ketones 15 H, Urine Occult Blood 10 H, Urine Nitrite Negative, Urine Bilirubin Negative, Urine Urobilinogen 8 H, Ur Leukocyte Esterase Negative, Urine RBC 0-5 SEEN, Urine WBC 0-5 SEEN, Ur Squamous Epith Cells 5-10 SEEN, Urine Bacteria 0 SEEN, Urine Mucus 0 SEEN 02/15/25 16:16: POC Glucose 148 H 02/15/25 21:12: Retic Count 4.81 H, Immature Retic Fraction 12.50, Retic Hgb Equivalent 35.7 H 02/16/25 04:57: WBC 9.6, RBC 2.71 L, Hgb 8.7 L, Hct 24.1 L, MCV 88.9, MCH 32.1 H, MCHC 36.1 H, RDW Std Deviation 43.8, RDW Coeff of Cody 14.4, Plt Count 297, MPV9.5, Immature Gran % (Auto) 0.400, Neut% (Auto) 60.6, Lymph % (Auto) 27.3, [place]% (Auto) 9.3, Eos % (Auto) 1.9, Baso % (Auto) 0.5, AbsoluteNeuts (auto) 5.8, Absolute Lymphs (auto) 2.62, Nucleated RBC % 0, PT 14.6, INR 1.1, APTT 31.5, Sodium 133, Potassium 3.6, Chloride 102, Carbon Dioxide 19.9 L, Anion Gap 12, BUN 22 H, Creatinine 0.77,Estim Creat Clear Calc 44.44 L, Est GFR (MDRD) Non-Af 80, BUN/Creatinine Ratio 28.4 H, Glucose 155 H, Hemoglobin A1c 7.3 H, Calcium 8.9, Total Bilirubin 1.96 H, AST 34 H, ALT < 5, Alkaline Phosphatase 89, Total Protein 6.6, Albumin 3.0 L, Globulin 3.6, Albumin/Globulin Ratio 0.8 L, TSH 7.490 H 02/16/25 05:53: POC Glucose 151 H Imaging Radiology Impression Femur X-Ray 02/15/25 13:40 IMPRESSION: Comminuted impacted left intertrochanteric fracture. Reading Location: [facility] Hip/Pelvis X-Ray 02/15/25 13:40 IMPRESSION: Comminuted impacted left intertrochanteric fracture. Reading Location: [facility] Assessment & Plan Assessment/Plan (1) Intertrochanteric fracture of left femur: QUALIFIERS: Encounter type: initial encounter Fracture type: closed Fracture alignment: displaced Qualified Code(s): S72.142A - Displaced intertrochanteric fracture of left femur, initial encounter for closed fracture PLAN: Plan Reviewed x-rays done in the ER last night. Patient has a displaced intertrochanter fracture of the left femur with subtrochanteric extension. There is significant overlap and shortening. Discussed imaging findings with the patient. Explained to her that this is surgical injury and willrequire surgical fixation in order to allow early return to ambulatory function. I recommend open reduction internal fixation with long gamma nail. All risk benefits and alternatives were discussed in detail with the risks include but are not limited to infection, bleeding, injuryto nerves and vessels, hematoma formation, need for further surgery, osiris-implant fracture, hardware failure, nonunion, malunion, need for further surgery, need for hyper basement, DVT, pulm embolism, pneumonia, atelectasis, cardiopulmonary event. Patient understands and agrees to proceed with surgery. Consent was signed. Charges/Coding Visit Charges Inpatient E&M: 66081 Init Hosp L3 02/16/2518 Cosigner Signature (if applicable): CC: Dr. Baldev Berry DO; Dr. Candelario Santana MD; Dr. Abdirashid Cano DO~ Signed ADDENDUM by Dr. Matt Chacon MD on 02/16/25 at 0923 Addendum Tried to reach both Ash and sai Owens of the patient to update about proceeding with surgery and asked if they have any questions. Both phone numbers were not reachable. Patient has consented to the surgery and wishes to proceed. 02/16/25922 Cosigner Signature (if applicable): cc: Dr. Baldev Berry DO; Dr. Candelario Santana MD; Dr. Abdirashid Cano DO ~* Signed [facility]06-27-2025 Consult note [facility] Medical Records Department [address] [place] [address] Pre-Anesthesia Evaluation 02/16/25 0836 MR#: [id number] Acct: [id number] Name: SHASHI OSWALD Rep #:[id number] : 1945 79 From: Bi Zaman MD PCP: Dr. Candelario Santana MD Status:ADM I N Y Race: C [place] [facility] [id number] -[id number] ASA Classification* ASA Classification ASA Classification: 3 Assessment & Plan Anesthesia* Anesthesia Assessment Anesthesia Assessment: Discussed sedation and/or anesthesia options, risks, benefits, and alternatives with patient/parents/legal guardian/POA. Questions invited. The patient/parents/legal guardian/POA seems to understand and agrees to proceedwith anesthesia plan. Reviewed the physical assessment, medical history, allergy history and patient home medications list prior to surgery/procedure/anesthetic and documented any changes. Performed airway and anesthesia risk assessments. Anesthesia Type Anesthesia Type: General History Source History Obtained from:: Patient and Chart Anesthesia Focused Assessment* Temperature: 97.1 F Pulse Rate: 58 Blood Pressure: 110/66 Respiratory Rate: 16 Pulse Ox: 100 Oxygen Delivery Method: Room Air Oxygen Flow Rate (L/min): 2 Airway Assessment Mouth opens: >3 cm Mallampati Score: III Teeth Condition: Missing (Multiple missing teeth) Neck Range of motion (ROM): Limited ROM (Slight decrease in extension) Labs Anesthesia Preop lab: CBC WBC 9.6 K/mm3 (4.4-11.0) 02/16/25 04:57 02/16/25 RBC 2.71 M/mm3 (4.2-5.4) L 02/16/25 04:57 02/16/25 Hgb 8.7 g/dL (12.0-15.0) L 02/16/25 04:57 02/16/25 Hct 24.1 % (37-47) L 02/16/25 04:57 02/16/25 Plt Count 297 K/mm3 (150-450) 02/16/25 04:57 02/16/25 CHEMISTRY Potassium 3.6 mmol/L (3.3-5.1) 02/16/25 04:57 02/16/25 Sodium 133 mmol/L (133-145) 02/16/25 04:57 02/16/25 Magnesium 2.0 mg/dL (1.6-2.6) 03/20/22 03:03 03/20/22 BUN 22 mg/dL (4-19) H 02/16/25 04:57 02/16/25 Creatinine 0.77 mg/dL (0.70-1.20) 02/16/25 04:57 02/16/25 Glucose 155 mg/dL (70-99) H 02/16/25 04:57 02/16/25 POC Glucose 151 mg/dL (74-106) H 02/16/25 05:53 02/16/25 TSH 7.490 uIU/mL (0.300-4.200) H 02/16/25 04:57 COAG PT 14.6 SECONDS (11.7-14.9) 02/16/25 04:57 Pre-Assessment Diagnosis/Proposed Procedure Planned Operative Procedure(s): Left hip ORIF. Gamma nail. 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 When Was Last Pacemaker Check QUESTION #4 FULL TEXT: You/Your Family Experience fever (hyperthermia) with Anesthesia Last Oral Intake Last Oral intake: Last Oral Intake NPO since Meds taken in AM with sips of water? Meds patient instructed to take am of surgery Any additional information?: Yes NPO since: 00:00 PONV PONV - professor of finance: PONV - professor of finance Female HX of Motion Sickness HX of N/V After Surgery Non-Smoker Duration of Surgery greater than 60 minutes Number of Risk Factors PONV Score Height & Weight Height & Weight: Anesthesia: Height & Weight Height 5 ft 1 in 02/15/25 16:04 Weight: 57.289 kg 02/15/25 16:04 Body Mass Index (BMI) 23.8 02/15/25 16:04 Respiratory Assessment Respiratory Assessment - professor of finance: Respiratory Tract Infection Hx - professor of finance Hx Respiratory Tract Infection No 02/16/25 00:28 STOP Sleep Apnea STOP Sleep Apnea - professor of finance: STOP Sleep Apnea - professor of finance Hx Hypertension Yes: CONTROLLED WITH MED 02/15/25 16:04 Hx Sleep Apnea No 02/15/25 16:04 CPAP BIPAP Do you snore loudly (louder Yes 02/15/25 16:04 than talking or can be heard Do you often feel tired/ Yes 02/15/25 16:04 fatigued/ sleepy during daytime? Has anyone observed you stop No 02/15/25 16:04 breathing during sleep? STOP Results Positive 02/15/25 16:04 QUESTION #5 FULL TEXT : Do you snore loudly (louder than talking or can be heard through closeddoors)? 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 Specify any problems Hx of Preganancy in last 3 N/A 02/15/25 16:04 Months Nurse Filling Out Transfusion FSTEINER 02/15/25 16:04 & Questions: Date: 02/15/25 02/15/25 16:04 Time: 16:02/15/25 16:04 Patient unable to answer at this time (ie. confused, unrespo /Reproduction History /Reproductive History - professor of finance: /Reproductive Hx- professor of finance Hx Now Gestational Age (in weeks): EDC: Hx Hx Para Hx Section SAB No 11/20/22 12:16 Active Medications Active Medications: Current Medications Generic Name Dose Route Start Last Admin Trade Name Freq PRN Reason Stop Dose Admin Acetaminophen 1,000 mg 02/15/25 22:00 02/16/25 05:38 Acetaminophen 500 Mg Tablet PO 1,000 mg Q8 GIORGI Administration Albuterol Sulfate 2.5 mg 02/15/25 16:01 Albuterol 2.5 Mg/3 Ml Vial.Neb. INHALATION Q2H PRN PRN SOB &/OR WHEEZING Carbidopa/Levodopa 1 tablet 02/15/25 22:00 02/16/25 05:38 Carbidopa/Levodopa 25/100 Tablet PO 1 tablet TID GIORGI Administration Glucagon 1 mg 02/15/25 16:01 Glucagon 1 Mg/Ml Syringe IM X1 PRN HYPOGLYCEMIA Protocol Dextrose 250 mls @ 0 mls/hr 02/15/25 16:01 Dextrose 10%-Water IV .Q0M PRN HYPOGLYCEMIA Protocol As Directed Sodium Chloride 250 mls @ 15 mls/hr 02/15/25 16:08 IV .[id number] PRN Saline Flush Sodium Chloride 250 mls @ 15 mls/hr 02/15/25 16:08 IV .[id number] PRN Additional IVPB Infusion Lactated Ringer's 1,000 mls @ 15 mls/hr 02/16/25 08:15 02/16/25 08:15 IV 15 mls/hr .Q48H GIORGI Administration Insulin Human Lispro 0 unit 02/15/25 16:01 02/16/25 05:58 Insulin Lispro 100 Unit/Ml Insuln.Pen SC 1 units TIDAC GIORGI Administration Protocol Ketorolac Tromethamine 15 mg 02/15/25 16:01 Ketorolac 15 Mg/Ml Vial IV 02/20/25 16:01 Q6H PRN PRN Pain Score 1-10 Melatonin 10 mg 02/15/25 16:01 Melatonin 10 Mg Tablet PO QHS PRN PRN INSOMNIA Morphine Sulfate 2 mg 02/15/25 16:01 Morphine 2 Mg/Ml Syringe IV Q3H PRN PRN Pain Score 6-10 Nutritional Formula (Lactose Free) 120 ml 02/16/25 10:00 02/16/25 07:25 Glucerna Shake 120 Ml Liquid PO Not Given 4X/DAY GIORGI Ondansetron HCl 4 mg 02/15/25 16:01 Ondansetron 4 Mg/2 Ml Vial IV Q8H PRN PRN NAUSEA/VOMITING Oxycodone HCl 5 mg 02/15/25 16:01 Oxycodone 5 Mg Tablet PO Q4H PRN PRN Pain Score 4-10 Senna/Docusate Sodium 2 tablet 02/15/25 22:00 02/16/25 07:25 Senna/Docusate Sodium 1 Tablet PO Not Given BID GIORGI Sodium Chloride 10 - 40 ml 02/15/25 16:08 0.9% Saline Lock 10 Ml Syringe IV UD PRN SALINE FLUSH PFSH Medical History Hyperthyroidism Rheumatoid arthritis Kidney stones Asthma Irregular heart beat Chest pain Migraines Parkinson's disease Wears glasses Rash Thyroid disease Diabetes Arthritis Restless legs Syncope Dietary restriction Non-smoker Leg cramps Hypertension Chronic anemia Hypothyroidism Diabetes mellitus, type 2 Hypertension Home Medications ?Medication ?Instructions ?Recorded ?Last Taken ?Type carbidopa 25 mg-levodopa 100 mg 1 tab PO TID 02/15/25 02/15/25 History tablet losartan 50 mg tablet 50 mg PO DAILY 02/15/25 06/02/14 History Allergy/AdvReac Type Severity Reaction Status Date [...] do you feel safe at home: Yes Review of Systems (Anesthesia) ROS Narrative System reviewed and no additional complaints, except as documented. Physical Exam Resp clear to auscultation bilaterally 02/16/25 0845 vanessa ALFARO> Date _ Bi Zaman MD Cosigner Signature: Date CC: ~ Signed [facility]06-26-2025 History and physical note Author Lakeshia Mas [facility] Note Date/Time February 15, 2025 3:05 pm [facility] Medical Records Department [address] [place] [address] H&P Exam - Hospitalist 02/15/25 1456 MR#: [id number] Acct: [id number] Name: SHASHI OSWALD Rep #:[id number] : 1945 79 From: Lakeshia Mas MD PCP: Dr. Candelario Santana MD Status:REG E R Location: ED HPI - General General Date of Admission: 02/15/25 Date of Service: 02/15/25 Chief Complaint: Left hip fracture HPI Narrative SHASHI OSWALD, is a 79-year-old female history of diabetes, hypertension, hypothyroidism presented to [facility] ED 02/15/2025 with inability to walk. She fell Wednesday of last week and had her sons help her get to the couch but she has not been able to get up off the couch since then and notes that friends and family been bringing her food and water/drinks but due tot persistent pain and still not able to get up she called EMS and presented [facility]. On arrival in the ED patient afebrile, [...] has no other new or acute complaints [facility] Medical History Wears glasses Rash Thyroid disease [...] % (Auto) 50.2, Lymph % (Auto) 38.6, [place]% (Auto) 8.7, Eos % (Auto) 1.8, Baso [...] Clarity Clear, Urine pH 6.5, Ur Specific [place] 1.010, Urine Protein 30 H, Urine Glucose (UA) Normal, Urine Ketones 15 H, Urine Occult Blood 10 H, Urine Nitrite Negative, Urine Bilirubin Negative, Urine Urobilinogen 8 H, Ur Leukocyte Esterase Negative Imaging Radiology Impression Femur X-Ray 02/15/25 13:40 IMPRESSION: Comminuted impacted left intertrochanteric fracture. Reading Location: [facility] Hip/Pelvis X-Ray 02/15/25 13:40 IMPRESSION: Comminuted impacted left intertrochanteric fracture. Reading Location: [facility] Assessment & Plan Assessment/Plan (1) Hip [...] Mas MD Charges/Coding Visit Charges Inpatient E&M: 23145 Init Hosp L2 02/15/25 1505 <Electronically signed by Lakeshia Mas MD> Cosigner Signature (if applicable): CC: Dr. Lakeshia Mas MD; Dr. Candelario Santana MD~ Signed [facility] Work Phone: 1(106) 337-185706-26-2025 Evaluation note* Diagnosis Onset Date Resolution Status Admit Date Anemia acute February 15 2:56pm Fall acute February 15 2:56pm Hip fracture acute February 15 025 2:56pm Intertrochanteric fracture o f left femur acute February 15, 2025 2:56pm Occult blood in stools acute [facility] 2024 2:56pm Status post hip surgery acute [facility] 2024 2:56pm Vitamin D deficiency acute February 15, 2025 2:56pm Constipation chronic February 15 025 2:56pm [facility] Work Phone: 1([phone]) 424-244806-26-2025 Evaluation note* Diagnosis Onset Date Resolution Status Admit Date Occult blood in stools acute [facility] 2024 2:56pm Anemia chronic February 15 2:56pm Vitamin D deficiency chronic February 15, 2025 2:56pm Constipation resolved Carly 26th, 2 025 2:56pm Hip fracture resolved February 15 2 025 2:56pm Intertrochanteric fracture o f left femur resolved February 15, 2025 2:56pm Fall inactive February 15 2:56pm Status post hip surgery deleted J une 2024 2:56pm Debility acute February 21, 2025 2:16pm H/O thyroidectomy acute February 2:16pm History of hemorrhoids acute Ju ly 2024 2:16pm Hyponatremia acute February 21 2:16pm Occult blood in stools acute ly 2024 2:16pm Paroxysmal atrial fibrillation acute February 21, 2025 2:16pm Status post hip surgery acute J [id number] 2:16pm Anemia chronic February 21, 2025 2:16pm Cognitive dysfunction chronic Feb 2:16pm Diabetes mellitus, type 2 chronic February 21, 2025 2:16pm Fecal incontinence chronic February 212024 2:16pm Hyperlipemia chronic February 21 2:16pm Hypothyroidism chronic February 21, 2025 2:16pm Murmur, cardiac chronic February 21, 2025 2:16pm Orthostatic hypotension chronic 2024 2:16pm Parkinson's disease chronic February 21, 2025 2:16pm Right carotid bruit chronic February 21, 2025 2:16pm Urinary bladder incontinence chronic February 21, 2025 2:16pm Vitamin D deficiency chronic February 21, 2025 2:16pm Osteoporosis suspected February 21 2:16pm Constipation resolved February 21 2:16pm Intertrochanteric fracture o f left femur resolved February 21, 2025 2:16pm History of open reduction an d internal fixation (ORIF) procedure inactive February 21, 2025 2:16pm [facility] Work Phone: 1(324) 297-735706-26-2025 Discharge summary Author Abdirashid Cano [facility] Note Date/Time February 15, 2025 2:40 pm [facility] Medical Records Department [address] [place] [address] Emergency Department Summary 02/15/25 MR#: [id number] Acct: [id number] Name: SHASHI OSWALD Rep #:[id number] : 1945 79 From: Abdirashid Cano DO PCP: Dr. Candelario Santana MD Status:REG E R Location: ED [...] DO> Cosigner Signature (if applicable): cc: Dr. Candelario Santana MD ~* Signed HPI History of [...] up she came in by EMS today. [facility] Medical History Wears glasses Rash Thyroid disease [...] % (Auto) 50.2 Lymph % (Auto) 38.6 [place] % (Auto) 8.7 Eos % (Auto) 1.8 Baso % (Auto) 0.4 Absolute Neuts (auto) 4.6 Absolute Lymphs (auto) 3.52 Nucleated RBC % 0 Urine Color Straw Urine Clarity Clear Urine pH 6.5 Ur Specific Sh[place]one 1.010 Urine Protein 30 H Urine Glucose (UA) Normal Urine Ketones 15 H Urine Occult Blood 10 H Urine Nitrite Negative Urine Bilirubin Negative Urine Urobilinogen 8 H Ur Leukocyte Esterase Negative Radiography Diagnostic Testing: Clinical Impression(s) from Imaging Studies Femur X-Ray 02/15/25 13:40 IMPRESSION: Comminuted impacted left intertrochanteric fracture. Reading Location: [facility] Hip/Pelvis X-Ray 02/15/25 13:40 IMPRESSION: Comminuted impacted left intertrochanteric fracture. Reading Location: [facility] Discharge Plan Triage Chief Complaint: Lower Extremity Injury ED Provider: Abdirashid Cano Dx/Rx/DC Orders Clinical Impression: Fall, Hip fracture Prescriptions: No Action losartan 50 mg tablet 50 mg PO DAILY carbidopa-levodopa 25-100 mg tablet 1 tab PO TID Primary Care Provider: Candelario Santana Chi Referrals: Candelario Santana Chi, MD [Primary Care Provider] - Print Language: Qatari Disposition Disposition: Acute Care Hospital [facility] What to do if you have Problems For any increased pain, shortness of breath, bleeding, nausea or vomiting, chestpain, or any unexpected problems, contact your Primary Care Provider. Call [facility] ([phone]) or report to the closest Emergency Room. Call 911 if necessary. 02/15/25 1438 <Electronically signed by Abdirashid Cano DO> Cosigner Signature (if applicable): CC: Dr. Candelario Santana MD ~ Signed [facility] Work Phone: 1(299) 445-584606-26-2025 History and physical note [facility] Medical Records Department [address] [place] [address] H&P Exam - Hospitalist 02/15/25 1456 MR#: [id number] Acct: [id number] Name: SHASHI OSWALD Rep #:[id number] : 1945 79 From: Lakeshia Mas MD PCP: Dr. Candelario Santana MD Status:REG E R Location: ED HPI - General General Date of Admission: 02/15/25 Date of Service: 02/15/25 Chief Complaint: Left hip fracture HPI Narrative SHASHI OSWALD, is a 79-year-old female history of diabetes, hypertension, hypothyroidism presented to [facility] ED 02/15/2025 with inability to walk. She fell Wednesday of last week and hadher sons help her get to the couch but she has not been able to get up off the couch since then andnotes that friends and family been bringing her food and water/drinks but due tothe persistent painand still not able to get up she called EMS and presented [facility]. On arrival in the ED patient afebrile, blood pressure 105/74 withheart rate of 98 and respiratory rate 16 with pulse ox 100% on room air. CBC did reveal hemoglobin of 8.7, last value available 09/25/2024 was 11.4. CMP with a cre atinine within normal limits but does note total bilirubin of 2.68, minimalelevation of AST to 33 with a normal ALT and alk phos. UA does not appear infectious. X-ray of the pelvis did reveal a left intertrochanteric fracture. Ortho contacted who recommended medicine admission with Ortho consult. spitalist contacted for mission. Patient evaluated at bedside with family member present, they do report the fall roughly week ago with pain, her son has been changing her she has been unable to walkor get to the bathroom. Aside from the pain patient has no other new or acute complaints [facility] Medical History Wears glasses Rash Thyroid disease [...] 258, MPV9.6, Immature Gran % (Auto) 0.300, Neut% (Auto) 50.2, Lymph % (Auto) 38.6, [place]% (Auto) 8.7, Eos % (Auto) 1.8, Baso % (Auto) 0.4, AbsoluteNeuts (auto) 4.6, Absolute Lymphs (auto) 3.52, Nucleated [...] Clarity Clear, Urine pH 6.5, Ur Specific [place] 1.010, Urine Protein 30 H, Urine Glucose (UA) Normal, Urine Ketones 15 H, Urine Occult Blood 10 H, Urine Nitrite Negative, Urine Bilirubin Negative, Urine Urobilinogen 8 H, Ur Leukocyte Esterase Negative Imaging Radiology Impression Femur X-Ray 02/15/25 13:40 IMPRESSION: Comminuted impacted left intertrochanteric fracture. Reading Location: [facility] Hip/Pelvis X-Ray 02/15/25 13:40 IMPRESSION: Comminuted impacted left intertrochanteric fracture. Reading Location: [facility] Assessment & Plan Assessment/Plan (1) Hip [...] to be on any oral hypoglycemics anymore, [id number], glucose checks sliding scale insulin #Hypothyroidism -With [...] Mas MD Charges/Coding Visit Charges Inpatient E&M: 54693 Init Hosp L2 02/15/25 1502 Cosigner Signature (if applicable): CC: Dr. Lakeshia Mas MD; Dr. Candelario Santana MD~ Signed [facility]-26-2025 Discharge summary [facility] Medical Records Department [address] [place] [address] Emergency Department Summary 02/15/25 MR#: [id number] Acct: [id number] Name: SHASHI OSWALD Rep #:[id number] : 1945 79 From: Abdirashid Cano DO PCP: Dr. Candelario Santana MD Status:REG E R Location: ED ADDENDUM by Dr. Abdirashid Cano DO on 02/15/25 at 1440 Patient is CMP reviewed showed sodium of 133, potassium was 3.7, creatinine was 0.76. Patient's ASTand ALT were 33 and less than 5 respectively, total bilirubin elevated 2.68. CO2 was low at 18.1. 02/15/25 1440 Cosigner Signature (if applicable): cc: Dr. Candelario Santana MD ~* Signed HPI History of [...] to the couch and she has not beenable to get up off the couch since then. She states that her sons and other individuals were bringing her food and water/drinks. She states that since she has had persistent pain and not able to get up she came in by EMS today. [facility] Medical History Wears glasses Rash Thyroid disease [...] chemistries are pending urinalysis pending. Patient's x-ray ofher hip and pelvis as well as her [...] % (Auto) 50.2 Lymph % (Auto) 38.6 [place] % (Auto) 8.7 Eos % (Auto) 1.8 Baso % (Auto) 0.4 Absolute Neuts (auto) 4.6 Absolute Lymphs (auto) 3.52 Nucleated RBC % 0 Urine Color Straw Urine Clarity Clear Urine pH 6.5 Ur Specific [place] 1.010 Urine Protein 30 H Urine Glucose (UA) Normal Urine Ketones 15 H Urine Occult Blood 10 H Urine Nitrite Negative Urine Bilirubin Negative Urine Urobilinogen 8 H Ur Leukocyte Esterase Negative Radiography Diagnostic Testing: Clinical Impression(s) from Imaging Studies Femur X-Ray 02/15/25 13:40 IMPRESSION: Comminuted impacted left intertrochanteric fracture. Reading Location: [facility] Hip/Pelvis X-Ray 02/15/25 13:40 IMPRESSION: Comminuted impacted left intertrochanteric fracture. Reading Location: [facility] Discharge Plan Triage Chief Complaint: Lower Extremity Injury ED Provider: Abdirashid Cano Dx/Rx/DC Orders Clinical Impression: Fall, Hip fracture Prescriptions: No Action losartan 50 mg tablet 50 mg PO DAILY carbidopa-levodopa 25-100 mg tablet 1 tab PO TID Primary Care Provider: Candelario Santana Chi Referrals: Candelario Santana Chi, MD [Primary Care Provider] - Print Language: Qatari Disposition Disposition: Acute Care Hospital [facility] What to do if you have Problems For any increased pain, shortness of breath, bleeding, nausea or vomiting, chestpain, or any unexpected problems, contact your Primary Care Provider. Call [facility] ([phone]) or report tothe closest Emergency Room. Call 911 if necessary. 02/15/25 1438 Cosigner Signature (if applicable): CC: Dr. Candelario Santana MD ~ Signed [facility]06-26-2025 Radiology Diagnostic study note [facility] Imaging Services [address] [place] [address] Femur Min 2 Views MR#: [id number] Acct: [id number] Name: SHASHI OSWALD Rep #: [id number] : 1945 From: Joya Vazquez MD PCP: Dr. Candelario Santana MD Status: PRE E R Study:Femur Min 2 Views Date of Exam: Exam# [id number] Ordering Dr: Nathan Cano DO EXAM: XR Left Femur, 2 Views CLINICAL INDICATION: FALL TECHNIQUE: Frontal and lateral views of the left femur. COMPARISON: No relevant prior studies available. FINDINGS: BONES/JOINTS: Comminuted impacted left intertrochanteric fracture. No dislocation. SOFT TISSUES: Soft tissue swelling. RAD/Femur Min 2 Views IMPRESSION: Comminuted impacted left intertrochanteric fracture. [facility] CC: Dr. Candelario Santana MD; Dr. Abdirashid Cano DO ~ Burrer Operator: Signed [facility]06-26-2025 Radiology Diagnostic study note [facility] Imaging Services [address] [place] [address] HIP, UNI W/ Pelvis 2-3 Views MR#: [id number] Acct: [id number] Name: SHASHI OSWALD Rep #: [id number] : 1945 From: Joya Vazquez MD PCP: Dr. Candelario Santana MD Status: PRE E R Study:HIP, UNI W/ Pelvis 2-3 Views Date of Ex am: 02/15/25 Exam# [id number] Ordering Dr: Nathan Cano DO EXAM: XR [...] Comminuted impacted left intertrochanteric fracture. Reading [facility] CC: Dr. Candelario Santana MD; Dr. Abdirashid Cano DO ~ Burrer Operator: Signed [facility]06-26-2025 Discharge summary Author Abdirashid Cano [facility] Note Date/Time February 15, 2025 2:40 pm [facility] Medical Records Department [address] [place] [address] Emergency Department Summary 02/15/25 MR#: [id number] Acct: [id number] Name: SHASHI OSWALD Rep #:[id number] : 1945 79 From: Abdirashid Cano DO PCP: Dr. Candelario Santana MD Status:REG E R Location: ED [...] DO> Cosigner Signature (if applicable): cc: Dr. Candelario Santana MD ~* Signed HPI History of [...] up she came in by EMS today. [facility] Medical History Wears glasses Rash Thyroid disease [...] % (Auto) 50.2 Lymph % (Auto) 38.6 [place] % (Auto) 8.7 Eos % (Auto) 1.8 Baso % (Auto) 0.4 Absolute Neuts (auto) 4.6 Absolute Lymphs (auto) 3.52 Nucleated RBC % 0 Urine Color Straw Urine Clarity Clear Urine pH 6.5 Ur Specific Sh[place] 1.010 Urine Protein 30 H Urine Glucose (UA) Normal Urine Ketones 15 H Urine Occult Blood 10 H Urine Nitrite Negative Urine Bilirubin Negative Urine Urobilinogen 8 H Ur Leukocyte Esterase Negative Radiography Diagnostic Testing: Clinical Impression(s) from Imaging Studies Femur X-Ray 02/15/25 13:40 IMPRESSION: Comminuted impacted left intertrochanteric fracture. Reading Location: [facility] Hip/Pelvis X-Ray 02/15/25 13:40 IMPRESSION: Comminuted impacted left intertrochanteric fracture. Reading Location: [facility] Discharge Plan Triage Chief Complaint: Lower Extremity Injury ED Provider: Abdirashid Cano Dx/Rx/DC Orders Clinical Impression: Fall, Hip fracture Prescriptions: No Action losartan 50 mg tablet 50 mg PO DAILY carbidopa-levodopa 25-100 mg tablet 1 tab PO TID Primary Care Provider: Candelario Santana Chi Referrals: Candelario Santana Chi, MD [Primary Care Provider] - Print Language: Qatari Disposition Disposition: Acute Care Hospital [facility] What to do if you have Problems For any increased pain, shortness of breath, bleeding, nausea or vomiting, chestpain, or any unexpected problems, contact your Primary Care Provider. Call [facility] ([phone]) or report to the closest Emergency Room. Call 911 if necessary. 02/15/25 1438 <Electronically signed by Abdirashid Cano DO> Cosigner Signature (if applicable): CC: Dr. Candelario Santana MD ~ Signed [facility] Work Phone: 1(610) 315-340204-04-2023 History and physical note Author Antony Friend [facility] November 24, 2022 12:29pm Note Date/Time November 24, 2022 12:2 9pm [facility] Medical Records Department [address] [place] [address] History & Physical Exam 11/24/22 1229 MR#: [id number] Acct: [id number] Name: SHASHI OSWALD Rep #:[id number] : 1945 77 From: Antony Friend DO PCP: Dr. Candelario Santana MD Status:REG S DC Location: [place] [address] History and Physical Date of Admission: 11/24/22 77 F who presents to the office today for Follow up visit. Shashi established with this clinic through hospitalization at [facility]. She presented to [facility] ED 03.20.22with abdominal pain in the RUQ with persistent emesis. Imaging and biochemical workup performed and she was admitted. Gastroenterology consulted 03.20.22 with ERCP performed same day to address choledocholithiasis, pancreatitis and incidentally found gastritis. She was discharged 03.21.22 in stable condition.? ? CT abd/pel 03.20.22 noting distended CBD with hyperdense material suggestive [...] Appearance: average body habitus and well nourished HENWY Head: normal to inspection Ears: hearing grossly [...] Affect: normal affect Quality Reporting Tobacco Screening ([facility] 138) Smoking Status: Never smoker Assessment and [...] no clinicalchanges since date of exam. 11/24/22 5303 <Electronically signed by Antony Tran DO> Cosigner Signature (if applicable): CC: Dr. Candelario Santana MD; Antony Tran DO~ Signed [facility] Work Phone: 1([phone]) 820-655304-04-2023 Procedure [facility] 11-24-2022 [facility] HospitalEvaluation noteNo assessment information availableChildren'S [facility] Work Phone: Evaluation note* Diagnosis Onset Date Resolution Status Acute gallstone pancreatitis acute Choledocholithiasis acute Pancreatitis acute UTI (urinary tract infection) acute [facility] Work Phone: Evaluation note* Diagnosis Onset Date Resolution Status Acute gallstone pancreatitis resolved Choledocholithiasis resolved Pancreatitis resolved UTI (urinary tract infection) resolved [facility] Work Phone: Evaluation note* Diagnosis Onset Date Resolution Status Acute gallstone pancreatitis resolved Choledocholithiasis resolved Pancreatitis resolved UTI (urinary tract infection) resolved Bronchitis acute Choledocholithiasis acute [facility] Work Phone: Evaluation note* Diagnosis Onset Date Resolution Status Bronchitis acute Choledocholithiasis acute Bronchitis acute Choledocholithiasis acute [facility] Work Phone: Evaluation note* Diagnosis Onset Date Resolution Status Bronchitis acute Choledocholithiasis acute [facility] Work Phone: Evaluation note* Diagnosis Onset Date Resolution Status Bronchitis acute Bronchitis acute Constipation chronic [facility] Work Phone: Evaluation note* Diagnosis Onset Date Resolution Status Bronchitis acute Constipation [facility] Work Phone: Evaluation note* Diagnosis Onset Date Resolution Status Admit Date Fall acute February 15 2:56pm Hip fracture acute February 15 2:56pm [facility] Work Phone: History and physical note Author Lakeshia Mas [facility] Note Date/Time February 15, 2025 3:05 pm [facility] Medical Records Department [address] [place] [address] H&P Exam - Hospitalist 02/15/25 1456 MR#: [id number] Acct: [id number] Name: SHASHI OSWALD Rep #:[id number] : 1945 79 From: Lakeshia Mas MD PCP: Dr. Candelario Santana MD Status:REG E R Location: ED HPI - General General Date of Admission: 02/15/25 Date of Service: 02/15/25 Chief Complaint: Left hip fracture HPI Narrative SHASHI OSWALD, is a 79-year-old female history of diabetes, hypertension, hypothyroidism presented to [facility] ED 02/15/2025 with inability to walk. She fell Wednesday of last week and had her sons help her get to the couch but she has not been able to get up off the couch since then and notes that friends and family been bringing her food and water/drinks but due tot persistent pain and still not able to get up she called EMS and presented [facility]. On arrival in the ED patient afebrile, [...] has no other new or acute complaints [facility] Medical History Wears glasses Rash Thyroid disease [...] % (Auto) 50.2, Lymph % (Auto) 38.6, [place]% (Auto) 8.7, Eos % (Auto) 1.8, Baso [...] Clarity Clear, Urine pH 6.5, Ur Specific [place] 1.010, Urine Protein 30 H, Urine Glucose (UA) Normal, Urine Ketones 15 H, Urine Occult Blood 10 H, Urine Nitrite Negative, Urine Bilirubin Negative, Urine Urobilinogen 8 H, Ur Leukocyte Esterase Negative Imaging Radiology Impression Femur X-Ray 02/15/25 13:40 IMPRESSION: Comminuted impacted left intertrochanteric fracture. Reading Location: [facility] Hip/Pelvis X-Ray 02/15/25 13:40 IMPRESSION: Comminuted impacted left intertrochanteric fracture. Reading Location: [facility] Assessment & Plan Assessment/Plan (1) Hip [...] Mas MD Charges/Coding Visit Charges Inpatient E&M: 00851 Init Hosp L2 02/15/25 1505 <Electronically signed by Lakeshia Mas MD> Cosigner Signature (if applicable): CC: Dr. aLkeshia Mas MD; Dr. Candelario Santana MD~ Signed [facility] Work Phone: Hospital Discharge instructionsAdditional Instructions 1. Use the right arm when taking the blood pressure. She likely has significant vascular disease in the left upper extremity and systolic blood pressure are always 30-40 points lower in the let arm than the R. 2. TSH and free T4 in 6 weeks. 3. Needs constant encouragement to increase fluid intake. 4. Edema in the left leg is related to the surgery and the fact that she does not elevate her legs. Continue with CAMILA hose. Venous ultrasound of the left lower extremity was negative for DVT. [facility]: [facility]: Reason for referral (narrative)No reason for referral information availableWMercy Health [facility] Work Phone: Summary Purpose Family History No Family History Records Found Relationship Condition Age at Onset Recorded Date/T callie father Myocardial infarction Unknown sister Malignant neoplasm of breast Unknown Relationship Condition Age at Onset Recorded Date/T callie father Myocardial infarction Unknown Hypertension Unknown Cardiac disease Unknown sister Malignant neoplasm of breast Unknown mother Cerebrovascular accident (CVA) Unknown Advance Directives No Advanced Directives Records Found Advance Directive Response Recorded Date/ Time Living Will No May 12, 2020 4:41am Power of Adult Parole Officer No April 4:41am Advance Directive Response Recorded Date/ Time Living Will No March 20, 2022 2:13am Power of Adult Parole Officer No March 20 2:13am Advance Directive Response Recorded Date/ Time Living Will No March 20, 2022 6:32am Power of Adult Parole Officer No March 20 6:32am Advance Directive Response Recorded Date/ Time Living Will No March 20, 2022 5:32am Power of Adult Parole Officer No March 20 5:32am Advance Directive Response Recorded Date/ Time Living Will No November 20, 2022 12:16pm Power of Adult Parole Officer No November 20 12:16pm Advance Directive Response Recorded Date/ Time Living Will No November 20, 2022 11:16am Power of Adult Parole Officer No November 20 11:16am Advance Directive Response Recorded Date/ Time Do you have a Healthcare Power of Adult Parole Officer? No February 15, 2025 1:15pm Advance Directive Response Recorded Date/ Time Do you have a Healthcare Power of Adult Parole Officer? No February 15, 2025 4:04pm Advance Directive Response Recorded Date/ Time Do you have a Healthcare Power of Adult Parole Officer? No February 15, 2025 4:04pm Do you have a Healthcare Power of Adult Parole Officer? No February 22, 2025 6:07pm Chief Complaint and Reason for Visit Chief [...] Hip fracture February 15, 2025 2:56 pm Chief Complaint Admit Date LEFT HIP FRACTURE February 15, 2025 2:56 pm LEFT HIP FRACTURE February 16, 2025 7:50 am LEFT HIP FRACTURE February 16, 2025 9:13 am LEFT HIP FRACTURE February 17, 2025 7:45 am LEFT HIP FRACTURE February 17, 2025 11:3 7am LEFT HIP FRACTURE February 18, 2025 7:19 am LEFT HIP FRACTURE February 19, 2025 1:17 pm LEFT HIP FRACTURE February 19, 2025 4:07 pm LEFT HIP FRACTURE February 20, 2025 5:13p m LEFT HIP FRACTURE February 21, 2025 8:28a m Reason for Visit Admit Date Anemia February 15, 2025 2:56 pm Fall February 15, 2025 2:56 pm Hip fracture February 15, 2025 2:56 pm Intertrochanteric fracture of left femur February 15, 2025 2:56pm Occult blood in stools February 15, 2025 2 :56pm Status post hip surgery February 15, 2025 2:56pm Vitamin D deficiency February 15, 2025 2:5 6pm Constipation February 15, 2025 2:56 pm Chief Complaint Admit Date LEFT HIP FRACTURE February 15, 2025 2:56 pm PREOP February 16, 2025 5:18 am LEFT HIP FRACTURE February 16, 2025 7:50 am LEFT HIP FRACTURE February 16, 2025 9:13 am LEFT HIP FRACTURE February 17, 2025 7:45 am LEFT HIP FRACTURE February 17, 2025 11:3 7am LEFT HIP FRACTURE February 18, 2025 7:19 am LEFT HIP FRACTURE February 19, 2025 1:17 pm LEFT HIP FRACTURE February 19, 2025 4:07 pm LEFT HIP FRACTURE February 20, 2025 5:13p m LEFT HIP FRACTURE February 21, 2025 8:28a m LEFT HIP ORIF February 21, 2025 2:16p m LEFT HIP ORIF February 22, 2025 9:45a m LEFT HIP ORIF February 23, 2025 12:42 pm LEFT HIP ORIF February 26, 2025 8:57a m LEFT HIP ORIF February 28, 2025 9:12a m LEFT HIP ORIF March 01, 2025 10:3 3am LEFT HIP ORIF March 05, 2025 11:3 8am LEFT HIP ORIF March 05, 2025 1:18 pm LEFT HIP ORIF March 06, 2025 11:5 0am LEFT HIP ORIF March 08, 2025 3:49 pm Reason for Visit Admit Date Occult blood in stools February 15, 2025 2 :56pm Anemia February 15, 2025 2:56 pm Vitamin D deficiency February 15, 2025 2:5 6pm Constipation February 15, 2025 2:56 pm Hip fracture February 15, 2025 2:56 pm Intertrochanteric fracture of left femur February 15, 2025 2:56pm Fall February 15, 2025 2:56 pm Status post hip surgery February 15, 2025 2:56pm Debility February 21, 2025 2:16p m H/O thyroidectomy February 21, 2025 2:16p m History of hemorrhoids February 21, 2025 2: 16pm Hyponatremia February 21, 2025 2:16p m Occult blood in stools February 21, 2025 2: 16pm Paroxysmal atrial fibrillation February 21, 2025 2:16pm Status post hip surgery February 21, 2025 2 :16pm Anemia February 21, 2025 2:16p m Cognitive dysfunction February 21, 2025 2:1 6pm Diabetes mellitus, type 2 February 21, 2025 2:16pm Fecal incontinence February 21, 2025 2:16p m Hyperlipemia February 21, 2025 2:16p m Hypothyroidism February 21, 2025 2:16p m Murmur, cardiac February 21, 2025 2:16p m Orthostatic hypotension February 21, 2025 2 :16pm Parkinson's disease February 21, 2025 2:16p m Right carotid bruit February 21, 2025 2:16p m Urinary bladder incontinence February 21, 025 2:16pm Vitamin D deficiency February 21, 2025 2:16 pm Osteoporosis February 21, 2025 2:16p m Constipation February 21, 2025 2:16p m Intertrochanteric fracture of left femur February 21, 2025 2:16pm History of open reduction an d internal fixation (ORIF) procedure February 21, 2025 2:16pm Additional Source Comments INFORMATION SOURCE (unrecogn ized section and content) DATE CREATED AUTHOR 02/08/2018 [employer] DATE CREATED AUTHOR AUTHOR'S ORGANIZ ATION 02/16/2018 [employer] DATE CREATED AUTHOR AUTHOR'S ORGANIZ ATION 02/16/2018 [facility] [employer] DATE CREATED AUTHOR AUTHOR'S ORGANIZ ATION 03/18/2025 [facility] Goals (unrecognized section and content) Goals [...] Status: Active Member Role Status Dates Dr. Candelario Santana MD Primary Care Provider Active Team Status: Inactive Member Role Status Dates Dr. Candelario Santana MD Primary Care Provider Active Start: December 27, 2024 End: December 27, 2024 Dr. Candelario Santana MD Attending Provider Active Start: December 27, 2024 End: December 27, 2024 Dr. Candelario Santana MD Referring Provider Active Start: December 27, 2024 End: December 27, 2024 Team Status: Active Member Role Status Dates Dr. Candelario Santana MD Primary Care Provider Active Start: February 15, 2025 Dr. Abdirashid Cano DO Referring Provider Active Start: February 15, 2025 Dr. Abdirashid Cano DO Emergency Provider Active Start: February 15, 2025 Dr. Lakeshia Mas MD Admit Provider Active Star t: February 15, 2025 Dr. Lakeshia Mas MD Attending Provider Active Start: February 15, 2025 Team Status: Active Member Role Status Dates Dr. Candelario Santana MD Family Provider Active Dr. Candelario Santana MD Primary Care Provider Active Team Status: Inactive Member Role Status Dates Dr. Candelario Santana MD Primary Care Provider, Referring Provider Active Dr. Antony Tran DO Attending Provider Active Team Status: Inactive Member Role Status Dates Dr. Candelario Santana MD Primary Care Provider, Attending Provider Active Team Status: Inactive Member Role Status Dates Dr. Candelario Santana MD Primary Care Provider Active Candelario Santana MD Attending Provider Active Team Status: Active Member Role Status Dates Dr. Candelario Santana MD Primary Care Provider, Referring Provider Active Dr. Antony Tran DO Attending Provider, Other Prov ider Active Team Status: Inactive Member Role Status Dates Dr. Candelraio Santana MD Primary Care Provider Active Candelario FORD MD Attending Provider Active Team Status: Active Member Role Status Dates Dr. Candelario Santana MD Primary Care Provider Active Dr. Sergo Chaney MD Attending Provider Active Dr. Antony Tran DO Referring Provider Active Team Status: Inactive Member Role Status Dates Dr. Candelario Santana MD Primary Care Provider Active Start: September 25, 2024 End: September 25, 2024 Dr. Candelario Santana MD Attending Provider Active Start: September 25, 2024 End: September 25, 2024 Dr. Candelario Santana MD Referring Provider Active Start: September 25, 2024 End: September 25, 2024 Team Status: Active Member Role/Relationship Status Dates Dr. Candelario Santana MD Primary Care Provider Active Team Status: Inactive Member Role/Relationship Status Dates Dr. Candelario Santana MD Primary Care Provider Active Start: December 27, 2024 End: December 27, 2024 Dr. Candelario Santana MD Attending Provider Active Start: December 27, 2024 End: December 27, 2024 Dr. Candelario Santana MD Referring Provider Active Start: December 27, 2024 End: December 27, 2024 Team Status: Inactive Member Role/Relationship Status Dates Dr. Candelario Santana MD Primary Care Provider Active Start: February 15, 2025 End: February 21, 2025 Dr. Abdirashid Cano DO Referring Provider Active Start: February 15, 2025 End: February 21, 2025 Dr. Abdirashid Cano DO Emergency Provider Active Start: February 15, 2025 End: February 21, 2025 Dr. Lakeshia Mas MD Admit Provider Active Star t: February 15, 2025 End: February 21, 2025 Dr. Lakeshia Mas MD Other Provider Active Star t: February 15, 2025 End: February 21, 2025 Dr. Matt Chacon MD Other Provider Active Star t: February 15, 2025 End: February 21, 2025 Dr. Gia Owusu DO Attending Provider Active S tart: February 15, 2025 End: February 21, 2025 Dr. Baldev Berry DO Other Provider Active Star t: February 15, 2025 End: February 21, 2025 Team Status: Active Member Role/Relationship Status Dates Dr. Candelario Santana MD Primary Care Provider Active Start: February 16, 2025 Dr. Abdirashid Cano DO Referring Provider Active Start: February 16, 2025 Dr. Abdirashid Cano DO Emergency Provider Active Start: February 16, 2025 Dr. Lakeshia Mas MD Admit Provider Active Star t: February 16, 2025 Dr. Lakeshia Mas MD Other Provider Active Star t: February 16, 2025 Dr. Matt Chacon MD Other Provider Active Star t: February 16, 2025 Dr. Baldev Berry DO Attending Provider Active Start: February 16, 2025 Dr. Baldev Berry DO Other Provider Active Star t: February 16, 2025 Team Status: Active Member Role/Relationship Status Dates Dr. Candelario Santana MD Primary Care Provider Active Start: February 16, 2025 Dr. Abdirashid Cano DO Referring Provider Active Start: February 16, 2025 Dr. Abdirashid Cano DO Emergency Provider Active Start: February 16, 2025 Dr. Lakeshia Mas MD Admit Provider Active Star t: February 16, 2025 Dr. Lakeshia Mas MD Other Provider Active Star t: February 16, 2025 Dr. Matt Chacon MD Attending Provider Active Start: February 16, 2025 Dr. Matt Chacon MD Other Provider Active Star t: February 16, 2025 Dr. Baldev Berry DO Other Provider Active Star t: February 16, 2025 Team Status: Active Member Role/Relationship Status Dates Dr. Candelario Santana MD Primary Care Provider Active Start: February 17, 2025 Dr. Abdirashid Cano DO Referring Provider Active Start: February 17, 2025 Dr. Abdirashid Cano DO Emergency Provider Active Start: February 17, 2025 Dr. Lakeshia Mas MD Admit Provider Active Star t: February 17, 2025 Dr. Lakeshia Mas MD Other Provider Active Star t: February 17, 2025 Dr. Matt Chacon MD Other Provider Active Star t: February 17, 2025 Dr. Gia Owusu DO Attending Provider Active S tart: February 17, 2025 Dr. Gia Owusu DO Other Provider Active Start : February 17, 2025 Dr. Baldev Berry DO Other Provider Active Star t: February 17, 2025 Team Status: Active Member Role/Relationship Status Dates Dr. Candelario Santana MD Primary Care Provider Active Start: February 17, 2025 Dr. Abdirashid Cano DO Referring Provider Active Start: February 17, 2025 Dr. Abdirashid Cano DO Emergency Provider Active Start: February 17, 2025 Dr. Lakeshia Mas MD Admit Provider Active Star t: February 17, 2025 Dr. Lakeshia Mas MD Other Provider Active Star t: February 17, 2025 Dr. Matt Chacon MD Attending Provider Active Start: February 17, 2025 Dr. Matt Chacon MD Other Provider Active Star t: February 17, 2025 Dr. Gia Owusu DO Other Provider Active Start : February 17, 2025 Dr. Baldev Berry DO Other Provider Active Star t: February 17, 2025 Team Status: Active Member Role/Relationship Status Dates Dr. Candelario Santana MD Primary Care Provider Active Start: February 18, 2025 Dr. Abdirashid Cano DO Referring Provider Active Start: February 18, 2025 Dr. Abdirashid Cano DO Emergency Provider Active Start: February 18, 2025 Dr. Lakeshia Mas MD Admit Provider Active Star t: February 18, 2025 Dr. Lakeshia Mas MD Other Provider Active Star t: February 18, 2025 Dr. Matt Chacon MD Other Provider Active Star t: February 18, 2025 Dr. Gia Owusu DO Attending Provider Active S tart: February 18, 2025 Dr. Gia Owusu DO Other Provider Active Start : February 18, 2025 Dr. Baldev Berry DO Other Provider Active Star t: February 18, 2025 Team Status: Active Member Role/Relationship Status Dates Dr. Candelario Santana MD Primary Care Provider Active Start: February 19, 2025 Dr. Abdirashid Cano DO Referring Provider Active Start: February 19, 2025 Dr. Abdirashid Cano DO Emergency Provider Active Start: February 19, 2025 Dr. Lakeshia Mas MD Admit Provider Active Star t: February 19, 2025 Dr. Lakeshia Mas MD Other Provider Active Star t: February 19, 2025 Dr. Matt Chacon MD Attending Provider Active Start: February 19, 2025 Dr. Matt Chacon MD Other Provider Active Star t: February 19, 2025 Dr. Gia Owusu DO Other Provider Active Start : February 19, 2025 Dr. Baldev Berry DO Other Provider Active Star t: February 19, 2025 Team Status: Active Member Role/Relationship Status Dates Dr. Candelario Santana MD Primary Care Provider Active Start: February 19, 2025 Dr. Abdirashid Cano DO Referring Provider Active Start: February 19, 2025 Dr. Abdirashid Cano DO Emergency Provider Active Start: February 19, 2025 Dr. Lakeshia Mas MD Admit Provider Active Star t: February 19, 2025 Dr. Lakeshia Mas MD Other Provider Active Star t: February 19, 2025 Dr. Matt Chacon MD Other Provider Active Star t: February 19, 2025 Dr. Gia Owusu DO Attending Provider Active S tart: February 19, 2025 Dr. Gia Owusu DO Other Provider Active Start : February 19, 2025 Dr. Baldev Berry DO Other Provider Active Star t: February 19, 2025 Team Status: Active Member Role/Relationship Status Dates Dr. Candelario Santana MD Primary Care Provider Active Start: February 20, 2025 Dr. Abdirashid Cano DO Referring Provider Active Start: February 20, 2025 Dr. Abdirashid Cano DO Emergency Provider Active Start: February 20, 2025 Dr. Lakeshia Mas MD Admit Provider Active Star t: February 20, 2025 Dr. Lakeshia Mas MD Other Provider Active Star t: February 20, 2025 Dr. Matt Chacon MD Other Provider Active Star t: February 20, 2025 Dr. Gia Owusu DO Attending Provider Active S tart: February 20, 2025 Dr. Gia Owusu DO Other Provider Active Start : February 20, 2025 Dr. Baldev Berry DO Other Provider Active Star t: February 20, 2025 Team Status: Active Member Role/Relationship Status Dates Dr. Candelario Santana MD Primary Care Provider Active Start: February 21, 2025 Dr. Abdirashid Cano DO Referring Provider Active Start: February 21, 2025 Dr. Abdirashid Cano DO Emergency Provider Active Start: February 21, 2025 Dr. Lakeshia Mas MD Admit Provider Active Star t: February 21, 2025 Dr. Lakeshia Mas MD Other Provider Active Star t: February 21, 2025 Dr. Matt Chacon MD Other Provider Active Star t: February 21, 2025 Dr. Gia Owusu DO Attending Provider Active S tart: February 21, 2025 Dr. Gia Owusu DO Other Provider Active Start : February 21, 2025 Dr. Baldev Berry DO Other Provider Active Star t: February 21, 2025 Team Status: Active Member Role/Relationship Status Dates Dr. Candelario Santana MD Primary Care Provider Active Start: February 16, 2025 End: February 16, 2025 Dr. Sergo Chaney MD Attending Provider Active Start: February 16, 2025 End: February 16, 2025 Dr. Lakeshia Mas MD Referring Provider Active Start: February 16, 2025 End: February 16, 2025 Team Status: Active Member Role/Relationship Status Dates Dr. Candelario Santana MD Primary Care Provider Active Start: February 16, 2025 Dr. Abdirashid Cano DO Emergency Provider Active Start: February 16, 2025 Dr. Lakeshia Mas MD Admit Provider Active Star t: February 16, 2025 Dr. Lakeshia Mas MD Other Provider Active Star t: February 16, 2025 Dr. Matt Chacon MD Other Provider Active Star t: February 16, 2025 Dr. Baldev Berry DO Attending Provider Active Start: February 16, 2025 Dr. Baldev Berry DO Other Provider Active Star t: February 16, 2025 Team Status: Active Member Role/Relationship Status Dates Dr. Candelario Santana MD Primary Care Provider Active Start: February 16, 2025 Dr. Abdirashid Cano DO Referring Provider Active Start: February 16, 2025 Dr. Abdirashid Cano DO Emergency Provider Active Start: February 16, 2025 Dr. Lakeshia Mas MD Admit Provider Active Star t: February 16, 2025 Dr. Lakeshia Mas MD Other Provider Active Star t: February 16, 2025 Dr. Matt Chacon MD Attending Provider Active Start: February 16, 2025 Dr. Matt Chacon MD Other Provider Active Star t: February 16, 2025 Dr. Baldev Berry DO Other Provider Active Star t: February 16, 2025 Team Status: Active Member Role/Relationship Status Dates Dr. Candelario Santana MD Primary Care Provider Active Start: February 17, 2025 Dr. Abdirashid Cano DO Emergency Provider Active Start: February 17, 2025 Dr. Lakeshia Mas MD Admit Provider Active Star t: February 17, 2025 Dr. Lakeshia Mas MD Other Provider Active Star t: February 17, 2025 Dr. Matt Chacon MD Other Provider Active Star t: February 17, 2025 Dr. Gia Owusu DO Attending Provider Active S tart: February 17, 2025 Dr. Gia Owusu DO Other Provider Active Start : February 17, 2025 Dr. Baldev Berry DO Other Provider Active Star t: February 17, 2025 Team Status: Active Member Role/Relationship Status Dates Dr. Candelario Santana MD Primary Care Provider Active Start: February 17, 2025 Dr. Abdirashid Cano DO Referring Provider Active Start: February 17, 2025 Dr. Abdirashid Cano , DO Emergency Provider Active Start: February 17, 2025 Dr. Lakeshia Mas MD Admit Provider Active Star t: February 17, 2025 Dr. Lakeshia Mas MD Other Provider Active Star t: February 17, 2025 Dr. Matt Chacon MD Attending Provider Active Start: February 17, 2025 Dr. Matt Chacon MD Other Provider Active Star t: February 17, 2025 Dr. Gia Owusu DO Other Provider Active Start : February 17, 2025 Dr. Baldev Berry DO Other Provider Active Star t: February 17, 2025 Team Status: Active Member Role/Relationship Status Dates Dr. Candelario Santana MD Primary Care Provider Active Start: February 18, 2025 Dr. Abdirashid Cano DO Emergency Provider Active Start: February 18, 2025 Dr. Lakeshia Mas MD Admit Provider Active Star t: February 18, 2025 Dr. Lakeshia Mas MD Other Provider Active Star t: February 18, 2025 Dr. Matt Chacon MD Other Provider Active Star t: February 18, 2025 Dr. Gia Owusu DO Attending Provider Active S tart: February 18, 2025 Dr. Gia Owusu DO Other Provider Active Start : February 18, 2025 Dr. Baldev Berry DO Other Provider Active Star t: February 18, 2025 Team Status: Active Member Role/Relationship Status Dates Dr. Candelario Santana MD Primary Care Provider Active Start: February 19, 2025 Dr. Abdirashid Cano DO Referring Provider Active Start: February 19, 2025 Dr. Abdirashid Cano DO Emergency Provider Active Start: February 19, 2025 Dr. Lakeshia Mas MD Admit Provider Active Star t: February 19, 2025 Dr. Lakeshia Mas MD Other Provider Active Star t: February 19, 2025 Dr. Matt Chaocn MD Attending Provider Active Start: February 19, 2025 Dr. Matt Chacon MD Other Provider Active Star t: February 19, 2025 Dr. Gia Owusu DO Other Provider Active Start : February 19, 2025 Dr. Baldev Berry DO Other Provider Active Star t: February 19, 2025 Team Status: Active Member Role/Relationship Status Dates Dr. Candelario Santana MD Primary Care Provider Active Start: February 19, 2025 Dr. Abdirashid Cano DO Emergency Provider Active Start: February 19, 2025 Dr. Lakeshia Mas MD Admit Provider Active Star t: February 19, 2025 Dr. Lakeshia Mas MD Other Provider Active Star t: February 19, 2025 Dr. Matt Chacon MD Other Provider Active Star t: February 19, 2025 Dr. Gia Umer , DO Attending Provider Active S tart: February 19, 2025 Dr. Gia Owusu , DO Other Provider Active Start : February 19, 2025 Dr. Baldev Berry , DO Other Provider Active Star t: February 19, 2025 Team Status: Active Member Role/Relationship Status Dates Dr. Candelario Santana MD Primary Care Provider Active Start: February 20, 2025 Dr. Abdirashid Cano , Emergency Provider Active Start: February 20, 2025 Dr. Lakeshia Mas MD Admit Provider Active Star t: February 20, 2025 Dr. Lakeshia Mas MD Other Provider Active Star t: February 20, 2025 Dr. Matt Chacon MD Other Provider Active Star t: February 20, 2025 Dr. Gia Owusu DO Attending Provider Active S tart: February 20, 2025 Dr. Gia Owusu DO Other Provider Active Start : February 20, 2025 Dr. Baldev Berry DO Other Provider Active Star t: February 20, 2025 Team Status: Active Member Role/Relationship Status Dates Dr. Candelario Santana MD Primary Care Provider Active Start: February 21, 2025 Dr. Abdirashid Cano DO Emergency Provider Active Start: February 21, 2025 Dr. Lakeshia Mas MD Admit Provider Active Star t: February 21, 2025 Dr. Lakeshia Mas MD Other Provider Active Star t: February 21, 2025 Dr. Matt Chacon MD Other Provider Active Star t: February 21, 2025 Dr. Gia Owusu DO Attending Provider Active S tart: February 21, 2025 Dr. Gia Owusu DO Other Provider Active Start : February 21, 2025 Dr. Baldev Berry DO Other Provider Active Star t: February 21, 2025 Team Status: Inactive Member Role/Relationship Status Dates Dr. Candelario Santana MD Primary Care Provider Active Start: February 21, 2025 End: March 09, 2025 Dr. Katie Bah DO Admit Provider Active Start: February 21, 2025 End: March 09, 2025 Dr. Katie Bah DO Attending Provider Act luna Start: February 21, 2025 End: March 09, 2025 Dr. Katie Bah DO Referring Provider Act luna Start: February 21, 2025 End: March 09, 2025 Team Status: Active Member Role/Relationship Status Dates Dr. Candelario Santana MD Primary Care Provider Active Start: February 22, 2025 Dr. Katie Bah DO Admit Provider Active Start: February 22, 2025 Dr. Katie Bah DO Attending Provider Act luna Start: February 22, 2025 Dr. Katie Bah DO Other Provider Active Start: February 22, 2025 Team Status: Active Member Role/Relationship Status Dates Dr. Candelario Santana MD Primary Care Provider Active Start: February 23, 2025 Dr. Katie Bah DO Admit Provider Active Start: February 23, 2025 Dr. Katie Bah , DO Attending Provider Act luna Start: February 23, 2025 Dr. Katie Bah DO Other Provider Active Start: February 23, 2025 Team Status: Active Member Role/Relationship Status Dates Dr. Candelario Santana MD Primary Care Provider Active Start: February 26, 2025 Dr. Katie Bah DO Admit Provider Active Start: February 26, 2025 Dr. Katie Bah DO Attending Provider Act luna Start: February 26, 2025 Dr. Katie Bah DO Referring Provider Act luna Start: February 26, 2025 Dr. Katie Bah DO Other Provider Active Start: February 26, 2025 Team Status: Active Member Role/Relationship Status Dates Dr. Candelario Santana MD Primary Care Provider Active Start: February 27, 2025 Dr. Steve Werner MD Attending Provider Active S tart: February 27, 2025 Team Status: Active Member Role/Relationship Status Dates Dr. Candelario Santana MD Primary Care Provider Active Start: February 28, 2025 Dr. Katie Bah DO Admit Provider Active Start: February 28, 2025 Dr. Katie Bah DO Attending Provider Act luna Start: February 28, 2025 Dr. Katie Bah DO Referring Provider Act luna Start: February 28, 2025 Dr. Katie Bah DO Other Provider Active Start: February 28, 2025 Team Status: Active Member Role/Relationship Status Dates Dr. Candelario Santana MD Primary Care Provider Active Start: March 01, 2025 Dr. Katie Bah DO Admit Provider Active Start: March 01, 2025 Dr. Katie Bah , DO Attending Provider Act luna Start: March 01, 2025 Dr. Katie Bah , Referring Provider Act luna Start: March 01, 2025 Dr. Katie Bah DO Other Provider Active Start: March 01, 2025 Team Status: Active Member Role/Relationship Status Dates Dr. Candelario Santana MD Primary Care Provider Active Start: March 01, 2025 Dr. Baldev Kaba MD Attending Provider Active S tart: March 01, 2025 Team Status: Active Member Role/Relationship Status Dates Dr. Candelario Santana MD Primary Care Provider Active Start: March 05, 2025 Dr. Katie Bah DO Admit Provider Active Start: March 05, 2025 Dr. Katie Bah DO Attending Provider Act luna Start: March 05, 2025 Dr. Katie Bah DO Referring Provider Act luna Start: March 05, 2025 Dr. Katie Bah , Other Provider Active Start: March 05, 2025 Team Status: Active Member Role/Relationship Status Dates Dr. Candelario Santana MD Primary Care Provider Active Start: March 05, 2025 Dr. Katie Bah DO Admit Provider Active Start: March 05, 2025 Dr. Katie Bah DO Referring Provider Act luna Start: March 05, 2025 Dr. Katie Bah DO Other Provider Active Start: March 05, 2025 LEONIE Delaney Attending Provider Active Star t: March 05, 2025 Team Status: Active Member Role/Relationship Status Dates Dr. Candelario Santana MD Primary Care Provider Active Start: March 06, 2025 Dr. Katie Bah DO Admit Provider Active Start: March 06, 2025 Dr. Katie Bah DO Attending Provider Act luna Start: March 06, 2025 Dr. Katie Bah DO Referring Provider Act luna Start: March 06, 2025 Dr. Katie Bah DO Other Provider Active Start: March 06, 2025 Team Status: Active Member Role/Relationship Status Dates Dr. Candelario Santana MD Primary Care Provider Active Start: March 08, 2025 Dr. Katie Bah DO Admit Provider Active Start: March 08, 2025 Dr. Katie Bah DO Attending Provider Act luna Start: March 08, 2025 Dr. Katie Bah DO Referring Provider Act luna Start: March 08, 2025 Dr. Katie Bah DO Other Provider Active Start: March 08, 2025 FOR RECORDS PERTAINING TO PATIENTS WHO [...] BE BASED ON THE PRIMARY CLINICAL RECORDS. [employer] provides no warranty or guarantee of the accuracy or completeness of information in this document.
[2025-03-18 12:20] VITALS: BP 129/56; PULSE 69; RESP 16; TEMP 36.9; O2SAT 100
[2025-03-18 12:23] VITALS: BP 118/51; PULSE 69; RESP 12; TEMP 36.8; O2SAT 100
== END 2025-03-18 13:33 | disposition home or self-care (01) ==
PROVIDERS: Emergency Provider Emergency Medicine; PCP Family Medicine Geriatric Medicine; Visit Provider Emergency Medicine
DX: S09.90XA Unspecified injury of head, initial encounter (principal); G20.A1 Parkinson's disease without dyskinesia, without mention of fluctuations; E11.9 Type 2 diabetes mellitus without complications; J45.909 Unspecified asthma, uncomplicated; Z79.01 Long term (current) use of anticoagulants; I10 Essential (primary) hypertension; R53.81 Other malaise; E78.5 Hyperlipidemia, unspecified; Z91.81 History of falling; S00.03XA Contusion of scalp, initial encounter; R51.9 Headache, unspecified; W19.XXXA Unspecified fall, initial encounter
CPT/HCPCS: 70450; 99284

== ENCOUNTER 2025-07-02 21:06 | Inpatient (IN) | payer MEDICARE, SELFPAY ==
[2025-07-02 21:07] VITALS: BP 170/85; PULSE 85; RESP 18; TEMP 37.1; O2SAT 98; BMI 21.9
--- NOTE | 2025-07-02 22:23 | RAD_ITS ---
PROCEDURE: RIGHT HIP, UNI W/ PELVIS 2-3 VIEWS 07/02/2025 REASON FOR EXAM: PAIN TECHNIQUE: Procedure Code: [facility] Modality: DX Procedure: HIP, UNI W/ PELVIS 2-3 VIEWS Laterality: Right COMPARISON: 03/29/2025 FINDINGS: No evidence of acute fracture or dislocation. Bilateral hip joints are intact with mild-moderate degenerative arthrosis. Degenerative changes of the lower lumbosacral spine. Chronic fracture deformity of the left proximal humerus intertrochanteric region in stable alignment, status post ORIF of the proximal left femur with intramedullary lorri and proximal dynamic screw. No evidence for hardware loosening or failure. Qualitative osteopenia. Grossly unremarkable soft tissues. RAD/HIP, UNI W/ Pelvis 2-3 Views IMPRESSION: 1. No evidence of acute fracture or dislocation. 2. Mild-moderate bilateral hip arthrosis. 3. Partially imaged left femur ORIF hardware appears intact. Reading Location: [id number]
--- OUTSIDE RECORDS SUMMARY | 2025-07-02 22:30 | XMS RPT_ITS | CCD ---
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 Unavailable [...] Oswaldo ALFARO, Dr. Gutierrez Attending Provider Umer DELEON, Dr. Nielsen Other Provider Shiv ALFARO, Dr. Trotter Attending Provider Chace ALFARO, Dr. Asher Referring Provider Sementi DO, Dr. Katie Bryan Admit Provider Sementi DO, Dr. Katie Bryan Attending Provide r Sementi DO, Dr. Katie Bryan Referring Provide r Sementi DO, Dr. Katie Bryan Other Provider Debbi ALFARO, Dr. Wilson Attending Provider Sesar ALFARO, Dr. De Paz Attending Provider Jo Valero Attending Provider Prince ALFARO, Dr. Sung Attending Provider Unavail able Prince ALFARO, Dr. Sung Referring Provider Unavail byron Ordonez MD, Dr. Corona Emergency Provider José Luis ALFARO, Dr. Corona Attending Provider Prakash TOOL SMITH-C, More Attending Provider Max, Candelario Chi Primary Care Unavailable Max, Candelario Chi Attending Unavailable Sementi, Lizet Referring Unavaila ble Sementi, Katie Bryan Attending Unavaila ble Max, Candelario Chi Primary Care Unavailable Sementi, Lizet Admitting Unavaila ble Max, Candelario Chi Primary Care Unavailable Gia Owusu Attending Unavailable Chace, Lakeshia Admitting Unavailable Cano, Abdirashid Referring Unavailable Chacon, Matt Consulting Unavailable Mas, Lakeshia Consulting Unavailable Jopperi, Baldev Consulting Unavailable Max, Candelario Chi Primary Care Unavailable Max, Candelario Chi Attending Unavailable Max, Candelario Chi Referring Unavailable Max, Candelario Chi Primary Care Unavailable Max, Candelario Chi Referring Unavailable Max, Candelario Chi Attending Unavailable Mas, Lakeshia Admitting Unavailable Chacon, Matt Consulting Unavailable Chacon, Matt Attending Unavailable Cano, Abdirashid Referring Unavailable Max, Candelario Chi Primary Care Unavailable Mas, Lakeshia Consulting Unavailable Kristi, Baldev Consulting Unavailable Gia Owusu Consulting Unavailable Max, Candelario Chi Primary Care Unavailable Serog Chaney Attending Unavailable Max, Candelario Chi Referring Unavailable Max, Candelario Chi Primary Care Unavailable More Randall Attending Unavailable Max, Candelario Chi Referring Unavailable Max, Candelario Chi Primary Care Unavailable Jo Vizcarra Attending Unavailable Max, Candelario Chi Referring Unavailable Max, Candelario Chi Primary Care Unavailable Max, Candelario Chi Referring Unavailable Max, Candelario Chi Attending Unavailable Baldev Berry Attending Unavailable Gia Owusu Attending Unavailable More Randall Attending Unavailable Max, Candelario Chi Primary Care Unavailable Max, Candelario Chi Referring Unavailable Steve Werner Attending Unavailable Max, Candelario Chi Primary Care Unavailable Sementi, Katie Bryan Referring Unavaila ble Sementi, Katie Bryan Consulting Unavaila ble Sementi, Katie Bryan Attending Unavaila ble Max, Candelario Chi Primary Care Unavailable Sementi, Katie Bryan Admitting Unavaila ble Max, Candelario Chi Primary Care Unavailable Pineda Abbott Attending Unavailable Pineda Abbott Attending Unavailable Pineda Abbott Referring Unavailable Max, Candelario Chi Primary Care Unavailable Cj Ordonez Attending Unavailable Max, Candelario Chi Primary Care Unavailable Lakeshia Mas Referring Unavailable Max, Candelario Chi Primary Care Unavailable ShivSergo Attending Unavailable Max, Candelario Chi Primary Care Unavailable Steve Werner Attending Unavailable Max, Candelario Chi Primary Care Unavailable Lucinda Lennon Attending Unavailable Max, Candelario Chi Referring Unavailable Sementi, Katie Bryan Referring Unavaila ble Baldev Kaba Attending Unavailable Max, Candelario Chi Primary Care Unavailable Lakeshia Mas Attending Unavailable Jo Vizcarra Attending Unavailable Max, Candelario Chi Primary Care Unavailable Max, Candelario Chi Attending Unavailable Max, Candelario Chi Referring Unavailable Allergies Allergy Classification Reported Allergen(s) Allergy Type Date of Onset Reaction(s) Facility (20 sources) Penicillins; Translations: [Penicillins] Allergy to substance 10-22-2020 [facility] Medications Current Medications Medication Drug Class(es) Dates Sig (Normalized) Sig (Original) acetaminophen 500 mg oral tablet (5 sources) Start: 02-21-2025 take 2 tablets by mouth every eight hours Acetaminophen 500 mg Tablet Active 1000 mg PO EVERY 8 HOURS 0 0 February 21, 2025 12:00am pain apixaban 2.5 mg oral tablet (11 sources) Factor Xa Inhibitor Start: 03-29-2025 take 1 tablet by mouth twice daily Apixaban (Eliquis) 2.5 mg tablet Active 2.5 mg PO TWICE A DAY March 29, 2025 12:00am Start: 03-08-2025 End: 03-25-2025 take 1 tablet by mouth twice daily Apixaban (Eliquis) 5 mg Tablet Discontinued 2.5 mg PO TWICE A DAY 1 March 08, 2025 4:45pm March 24, 2025 12:00am March 25, 2025 12:08am DVT prophylaxis DC after the last dose [...] 2017 11:00pm bisacodyl 10 mg rectal suppository (4 sources) Stimulant Laxative Start: 03-08-2025 Bisacodyl 10 mg Suppository Active 10 mg RC ONE TIME as needed for Constipation 1 March 08, 2025 12:00am calcium carbonate 500 mg chewable tablet (9 sources) Start: 02-21-2025 End: 03-08-2025 take 1 tablet by mouth three times daily at mealtime Calcium Carbonate 200 mg calcium (500 mg) Tablet,Chewable Active 500 mg PO 3 TIMES DAILY WITH MEALS 1 March 08, 2025 12:00am calcium polycarbophil 625 mg oral tablet (2 sources) Start: 03-29-2025 Calcium Polycarbophil (Fibercon) 625 mg tablet Active 1250 mg PO daily March 29, 2025 12:00am carbidopa 25 mg / levodopa 100 mg oral tablet (6 sources) Aromatic Amino Acid Decarboxylation Inhibitor, Aromatic Amino Acid Start: 02-15-2025 Carbidopa-Levodop a 25-100 mg tablet Active 1 {tbl} PO THREE TIMES A DAY February 15, 2025 12:00am parkinson diclofenac sodium 0.01 mg/mg topical gel (4 sources) Nonsteroidal Anti-inflammatory Drug Start: 03-08-2025 Diclofenac Sodium (Voltaren Arthritis Pain) 1 % gel Active 2 g TOPICAL TWICE A DAY 100 0 March 08, 2025 12:00am apply BID to both knees docusate sodium 50 mg / sennosides, longterm 8.6 mg oral tablet (9 sources) Start: 03-08-2025 Sennosides-Docusa te Sodium (Stimulant Laxative Plus) 8.6-50 mg Tablet Active 2 {tbl} PO TWICE A DAY 1 0 March 08, 2025 12:00am Start: 02-21-2025 End: 02-21-2025 Sennosides-Docusate Sodium ( Stimulant Laxative Plus) 8.6-50 mg Tablet Discontinued 2 {tbl} PO TWICE A DAY 0 0 February 21, 2025 12:00am February 21, 2025 2:26pm ergocalciferol 1.25 mg oral capsule (5 sources) Provitamin D2 Compound Start: 02-21-2025 Ergocalciferol [...] 11:00pm levothyroxine sodium 0.025 mg oral tablet (20 sources) l-Thyroxine Start: 03-08-2025 take 1 tablet [...] DAILY February 11, 2017 11:00pm Magnesium Hydroxide (4 sources) Start: 03-08-2025 take 1 mL by mouth o nce as needed for constipation Magnesium Hydroxide 400 mg/5 mL Suspension Active 30 mL PO ONE TIME as needed for Constipation 30 0 March 08, 2025 12:00am melatonin 3 mg oral tablet (9 sources) Start: 03-08-2025 take 1.5 mg by [...] 4:42pm metFORMIN hydrochloride 500 mg oral tablet (17 sources) Biguanide Start: 03-08-2025 Metformin 500 mg Tablet Active 750 mg PO DAILY WITH MEALS 1 March 08, 2025 12:00am Start: 11-20-2022 End: [...] 11:00pm metoprolol tartrate 25 mg oral tablet (20 sources) beta-Adrenergic Danya Start: 03-08-2025 take 1 [...] osmotic 24 hr extended release oral tablet (4 sources) Dihydropyridine Calcium Channel Danya Start: 03-08-2025 take 1 tablet by mouth every twenty-four hours Nifedipine 30 mg Tablet Extended Release 24hr Active 30 mg PO 1000 1 0 March 08, 2025 12:00am predniSONE 20 mg oral tablet (2 sources) Start: 06-18-2022 take 20 mg by mouth once daily Prednisone Active 20 MG PO DAILY June 17, 2022 11:00pm saccharomyces boulardii 250 mg oral capsule (2 sources) Start: 03-29-2025 take 1 capsule by mouth twice daily Saccharomyces Boulardii (Daily Probiotic (S. Boulardii)) 250 mg capsule Active 250 mg PO TWICE A DAY March 29, 2025 12:00am traMADol hydrochloride 50 mg oral tablet (4 sources) Opioid Agonist Start: 03-08-2025 Tramadol 50 mg Tablet Active 25 mg PO 0700,1400,2100 21 7 0 March 08, 2025 12:00am Completed/Discontinued Medications Medication Drug Class(es) Dates Sig (Normalized) Sig (Original) azithromycin 250 mg oral tablet (15 sources) Macrolide Antimicrobial Start: 06-18-2022 End: 06-25-2022 take 1 tablet by mouth once daily Azithromycin 250 mg tablet Discontinued 250 mg PO DAILY 7 7 0 June 18, 2022 12:00am June 24, 2022 12:00am June 25, 2022 12:14am canagliflozin 300 mg oral tablet (20 sources) Sodium-Glucose Cotransporter 2 Inhibitor Start: 02-12-2017 End: 06-18-2022 take 1 tablet by mouth once daily Canagliflozin 300 MG tablet Discontinued 300 mg PO DAILY February 12, 2017 12:00am June 18, 2022 3:31pm Check with primary doctor chlorthalidone 25 mg oral tablet (20 sources) Thiazide-like Diuretic Start: 02-12-2017 End: 06-18-2022 take 1 tablet by mouth once daily Chlorthalidone 25 MG tablet Discontinued 25 mg PO DAILY February 12, 2017 12:00am June 18, 2022 3:33pm Check with primary doctor cholecalciferol 0.05 mg oral capsule (13 sources) Vitamin D Start: 11-20-2022 End: 02-15-2025 take 1 capsule by mouth once daily Cholecalciferol (Vitamin D3) (Vitamin D3) 50 mcg (2,000 unit) Capsule Discontinued 50 ug PO DAILY November 20, 2022 12:00am February 15, 2025 1:35pm ciprofloxacin 500 mg oral tablet (18 sources) Quinolone Antimicrobial Start: 03-21-2022 End: 06-18-2022 take 1 tablet by mouth twice daily Ciprofloxacin Hcl (Cipro) 500 mg tablet Discontinued 500 mg PO TWICE A DAY 10 0 March 21, 2022 12:00am June 18, 2022 3:32pm lisinopril 20 mg oral tablet (20 sources) Angiotensin Converting Enzyme Inhibitor Start: 02-12-2017 End: 02-15-2025 take 1 tablet by mouth once daily Lisinopril 20 MG tablet Discontinued 20 mg PO DAILY February 12, 2017 12:00am February 15, 2025 1:35pm losartan potassium 50 mg oral tablet (6 sources) Angiotensin 2 Receptor Danya Start: 02-15-2025 [...] of humerus pioglitazone 30 mg oral tablet (20 sources) Peroxisome Proliferator Receptor alpha Agonist, Peroxisome Proliferator Receptor gamma Agonist, Thiazolidinedione Start: 03-19-2020 End: 02-15-2025 take 1 tablet by mouth once daily Pioglitazone 30 MG tablet Discontinued 30 mg PO DAILY March 19, 2020 12:00am February 15, 2025 1:36pm Check with primary doctor potassium chloride 10 meq extended release oral capsule (18 sources) Start: 03-21-2022 End: 06-18-2022 take 2 [...] Documented Da te Episodic/Chronic Acute myocardial infarction (20 sources) Myocardial infarction; Translations: [Non-ST elevation (NSTEMI) myocardial infarction] 05-12-2020 Chronic Biliary tract disease (20 sources) Common bile duct calculus; Translations: [Calculus of bile duct without cholangitis or cholecystitis without obstruction] Episodic Comment on above: she had an ERCP in 2 022 with temporary biliary stents by Dr. Tran. Cardiac dysrhythmias (10 sources) Paroxysmal atrial fibrillation; Translations: [Paroxysmal atrial fibrillation] Onset: 5 02-26-2025 Chronic Cardiac dysrhythmias (20 sources) Palpitations; Translations: [Tachycardia] Onset: 7 05-12-2020 Episodic Chronic obstructive pulmonary disease and bronchiectasis (20 sources) Bronchitis; Translations: [Bronchitis, not specified as acute or chronic] Episodic Coma; stupor; and brain damage (3 sources) [place] coma scale finding; Translations: [[place] coma scale score 13-15, at arrival to emergency department] 03-18-2025 Episodic Conduction disorders (2 sources) Long QT syndrome; Translations: [Long QT syndrome] Onset: 7 Chronic Coronary atherosclerosis and other heart disease (2 sources) Old myocardial infarction; Translations: [Old myocardial infarction] Onset: 7 Chronic Deficiency and other anemia (20 sources) Anemia; Translations: [Anemia, unspecified] 03-20-2022 Episodic Comment on above: Normochromic normocy tic with an increased RDW. Deficiency and other anemia (2 sources) Anemia, unspecified; Translations: [Anemia, unspecified] Onset: Episodic 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] Onset: 5 03-08-2025 Chronic Diabetes mellitus with complications (6 sources) Type 2 diabetes mellitus with hypoglycemia [...] above: no on medication. E Codes: Fall (16 sources) Fall; Translations: [Unspecified fall, initial encounter] Onset: 5 02-15-2025 Episodic Essential hypertension (20 sources) Essential (primary) hypertension; Translations: [Hypertensive disorder] Onset: 7 03-20-2022 Chronic Fluid and electrolyte disorders (10 sources) Hyponatremia; Translations: [Hypo-osmolality and hyponatremia] Onset: 5 02-23-2025 Episodic Fracture of neck of femur (hip) (20 sources) Fracture of bone of hip region; Translations: [Fracture of unspecified part of neck of unspecified femur, initial encounter for closed fracture] Onset: 5 02-15-2025 Episodic Fracture of upper limb (20 sources) Closed fracture of upper end of humerus; Translations: [Unspecified fracture of upper end of right humerus, initial encounter for closed fracture] 05-13-2020 Episodic Genitourinary symptoms and ill-defined conditions (10 sources) Urinary incontinence; Translations: [Unspecified urinary incontinence] [...] trivial MR and TR. 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] 03-18-2025 Episodic Other and ill-defined heart disease (4 sources) Left atrial enlargement; Translations: [Cardiomegaly] 02-23-2025 Chronic Other circulatory disease (8 sources) Orthostatic hypotension; Translations: [Orthostatic hypotension] 03-08-2025 Episodic Other circulatory disease (8 sources) Carotid bruit; Translations: [Other specified symptoms and signs involving the circulatory and respiratory systems] 03-08-2025 Episodic Other circulatory disease (2 sources) Other specified symptoms and signs involving the circulatory and respiratory systems; Translations: [Other specified symptoms and signs involving the circulatory and respiratory systems] Onset: 5 Episodic Other circulatory disease (1 source) Orthostatic hypotension; Translations: [Orthostatic hypotension] Onset: 5 Episodic Other gastrointestinal disorders (20 sources) History of hemorrhoid; Translations: [Personal history of other diseases of the digestive system] 05-12-2020 Episodic Other gastrointestinal disorders (20 sources) Occult blood in stools; Translations: [Other fecal abnormalities] 07-23-2020 Episodic Comment on above: has had this in the past and it was negative but, stool + on 02/22/25 Other gastrointestinal disorders (20 sources) Constipation; Translations: [Constipation, unspecified] 12-09-2022 Episodic Other gastrointestinal disorders (4 sources) Constipation, unspecified; Translations: [Constipation, unspecified] Onset: 5 12-09-2022 Episodic Other gastrointestinal disorders (8 sources) Incontinence of feces; Translations: [Full incontinence of feces] 03-08-2025 Episodic Other gastrointestinal disorders (2 sources) Other fecal abnormalities; Translations: [Other fecal abnormalities] Onset: Episodic Other gastrointestinal disorders (2 sources) Full incontinence of feces; Translations: [Full incontinence of feces] Onset: Episodic Other gastrointestinal disorders (1 source) Personal history of other diseases of the digestive system; Translations: [Personal history of other diseases of the digestive system] Onset: Episodic Other hematologic conditions (12 sources) Raised cardiac enzyme or marker; Translations: [Other specified abnormalities of plasma proteins] 03-19-2020 Episodic Other injuries and conditions due to external causes (3 sources) Closed injury of head; Translations: [Unspecified injury of head, initial encounter] 03-18-2025 Episodic Other injuries and conditions due to external causes (1 source) Encounter for examination and observation following other accident; Translations: [Encounter for examination and observation following other accident] Onset: Episodic Pancreatic disorders (not diabetes) (20 sources) Gallstone acute pancreatitis; Translations: [Biliary acute pancreatitis without necrosis or infection] Episodic Parkinson`s disease (2 sources) Parkinson`s disease; Translations: [Parkinson's disease without dyskinesia, without mention of fluctuations] Onset: Peripheral and visceral atherosclerosis (2 sources) Atherosclerosis of other arteries; Translations: [Atherosclerosis of other arteries] Onset: 7 Chronic Residual codes; unclassified (14 sources) History of operative procedure on hip; Translations: [Other specified postprocedural states] 02-19-2025 Episodic Residual codes; unclassified (9 sources) History of operation on musculoskeletal system; Translations: [Other specified postprocedural states] 03-08-2025 Episodic Comment on above: Left hip cephalomedu llary nailing 02/16/[address] Chacon Residual codes; unclassified (2 sources) Other specified postprocedural states; Translations: [Other specified [...] m eds because she felt "fine" Unclassified (8 sources) Parkinson's disease; Translations: [Parkinson's disease] 03-08-2025 Chronic Comment on above: Diagnosed by Dr. Bradley eric and placed on Sinemet. 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; Translations: [embroidery assistant (current) use of insulin] Onset: 02-13-2017 Episodic [...] Unclassified (1 source) R53.83 Onset: 02-18-2017 Unclassified (19 sources) fx right shoulder 03-20-2022 Results Test Name Value Interpretation Reference Range Facility Femur Min 2 Viewson 03-29-20 25 Femur Min 2 Views Normal [facility] Orthopedic Visit Reporton Orthopedic Visit Report Normal [facility] Pelvis 1 or 2 Viewson 2024 Pelvis 1 or 2 Views Normal [facility] CRPon 03-20-2025 C-REACTIVE PROT 9.63 mg/L High 0.0-3.0 [facility] Comment on above: Order Comment: 204.1 Performed By: #### L 501.9310, L101.9900, L501.9985, L501.9520, L501.6710 ####[facility] [address] [place], [place], [id number] Erythrocyte Sed Rateon 03-20 SED RATE 20 mm/hr Normal 0- [facility] Comment on above: Order Comment: 204.1 Performed By: #### L [id number], L101.9900, L501.9985, L501.9520, L501.6710 ####[facility] [address] [place], [place], [id number] Erythrocyte sedimentation ra teOrdered By: Pineda Morrison on 03-20-2025 ESR (Bld) [Velocity] 20 mm/h 0-30 [facility] Hemoglobin A1con 03-20-2025 HbA1c (Bld) [Mass fraction] 5.7 % Normal <=5.6 [facility] Comment on above: Order Comment: 204.1 Result Comment: Norm al < 5.7 % Prediabetic 5.7 - 6.4 % Diabetic >or= 6.5 % Please note range changes. Performed By: #### L 501.9310, L101.9900, L501.9985, L501.9520, L501.6710 ####[facility] [id number] [place], [place], [id number] Hemoglobin A1c percentageOrd ered By: Pineda Morrison on 03-20-2025 HbA1c (Bld) [Mass fraction] 5.7 % <5.7 [facility] Comment on above: Normal < 5.7 % Predi abetic 5.7 - 6.4 % Diabetic >or= 6.5 % Please note range changes. Serum or plasma C reactive p rotein measurement (mass/volume)Ordered By: Pineda Morrison on 03-20-2025 CRP [Mass/Vol] 9.63 mg/L High 0.0-3.0 [facility] T4 Total, Thyroxinon 025 T4 [Mass/Vol] 6.6 ug/dL Normal 4.8-13.9 [facility] Comment on above: Order Comment: 204.1 Performed By: #### L 501.9310, L101.9900, L501.9985, L501.9520, L501.6710 ####[facility] [address] [place], [place], [id number] TSH DL <= 0.005 mIU/L QnOrde red By: Pineda Morrison on 03-20-2025 TSH Qn 3.310 uIU/mL 0.300-4.200 [facility] Thyroid Stim Hormone (TSH)on 03-20-2025 TSH 3.310 uIU/mL Normal 0.300-4.200 [facility] Comment on above: Order Comment: 204.1 Performed By: #### L 501.9310, L101.9900, L501.9985, L501.9520, L501.6710 ####[facility] [address] [place], [address] ThyroxineOrdered By: Pineda rhodes on 03-20-2025 T4 [Mass/Vol] 6.6 ug/dL 4.8-13.9 [facility] Brain/Head without Contrasto n 03-18-2025 Brain/Head without Contrast Normal [facility] Emergency Department Summary on 03-18-2025 Emergency Department Summary Normal [facility] Anion gap in Serum or Plasma Ordered By: Pineda Morrison on 03-13-2025 Anion gap [Moles/Vol] 12 mmol/L 5-15 [facility] BUN/creatinine ratioOrdered By: Pineda Morrison on 03-13-2025 Urea nitrogen/Creatinine [Mass ratio] 30.1 mg/mg High 10-20 [facility] Bilirubin, totalOrdered By: Pineda Morrison on 03-13-2025 Bilirubin [Mass/Vol] 0.55 mg/dL 0.00-1.30 [facility] CBC-Complete Blood Cnt No Di ffon 03-13-2025 Erythrocyte distribution width (RBC) [Ratio] 14.7 % High 11.6-14.6 [facility] Comment on above: Order Comment: 204 Performed By: #### L 500.4100, L500.4050, L100.0500 ####[facility] [address] [place], [address] Hematocrit (Bld) [Volume fraction] 28.8 % Low 37-47 [facility] Comment on above: Order Comment: 204 Performed By: #### L 500.4100, L500.4050, L100.0500 ####[facility] [address] [place], [address] Hemoglobin (Bld) [Mass/Vol] 10.4 g/dL Low 12.0-15.0 [facility] Comment on above: Order Comment: 204 Performed By: #### L 500.4100, L500.4050, L100.0500 ####[facility] [address] [place], [address] MCH (RBC) [Entitic mass] 32.4 pg High 27.0-32.0 [facility] Comment on above: Order Comment: 204 Performed By: #### L 500.4100, L500.4050, L100.0500 ####[facility] [address] [place], [address] MCHC (RBC) [Mass/Vol] 36.1 g/dL High 32-36 [facility] Comment on above: Order Comment: 204 Performed By: #### L 500.4100, L500.4050, L100.0500 ####[facility] [address] [place], [address] MCV (RBC) [Entitic vol] 89.7 fL Normal 81-99 [facility] Comment on above: Order Comment: 204 Performed By: #### L 500.4100, L500.4050, L100.0500 ####[facility] [address] [place], [address] Platelet mean volume (Bld) [Entitic vol] 9.4 fL Normal 6.2-12.0 [facility] Comment on above: Order Comment: 204 Performed By: #### L 500.4100, L500.4050, L100.0500 ####[facility] [address] [place], [address] Platelets (Bld) [#/Vol] 240 10*3/uL Normal 150-450 [facility] Comment on above: Order Comment: 204 Performed By: #### L 500.4100, L500.4050, L100.0500 ####[facility] [address] [place], [address] RBC (Bld) [#/Vol] 3.21 10*6/uL Low 4.2-5.4 [facility] Comment on above: Order Comment: 204 Performed By: #### L 500.4100, L500.4050, L100.0500 ####[facility] [address] [place], [address] RDW SD 47.8 fl High 35.1-43.9 [facility] Comment on above: Order Comment: 204 Performed By: #### L 500.4100, L500.4050, L100.0500 ####[facility] [address] [place], [address] WBC (Bld) [#/Vol] 6.3 10*3/uL Normal 4.4-11.0 [facility] Comment on above: Order Comment: 204 Performed By: #### L 500.4100, L500.4050, L100.0500 ####[facility] [address] [place], [address] Calculated very low density lipoprotein (VLDL) cholesterol measurementOrdered By: Pineda Morrison on 03-13-2025 Calculated very low density lipoprotein (VLDL) cholesterol measurement 20 mg/dL 5-40 [facility] Carbon dioxide, total [Moles /volume] in Central venous bloodOrdered By: Pineda Morrison on 03-13-2025 CO2 [Moles/Vol] 21.2 mmol/L 21.0-32.0 [facility] Chloride assayOrdered By: Jacky Morrison on 03-13-2025 Chloride [Moles/Vol] 99 mmol/L 98-108 [facility] Comprehensive Metabolic Prof ilon 03-13-2025 Albumin [Mass/Vol] 3.1 g/dL Low 3.4-4.8 [facility] Comment on above: Order Comment: 204 Performed By: #### L 500.4100, L500.4050, L100.0500 ####[facility] [address] [place], [address] Albumin/Globulin [Mass ratio] 1.0 {ratio} Normal 0.9-2.4 [facility] Comment on above: Order Comment: 204 Performed By: #### L 500.4100, L500.4050, L100.0500 ####[facility] [address] [place], [address] ALK PHOS 130 U/L High 35-104 [facility] Comment on above: Order Comment: 204 Performed By: #### L 500.4100, L500.4050, L100.0500 ####[facility] [address] [place], [address] ALT [Catalytic activity/Vol] 6 U/L Normal <=34 [facility] Comment on above: Order Comment: 204 Performed By: #### L 500.4100, L500.4050, L100.0500 ####[facility] [address] [place], [address] AST [Catalytic activity/Vol] 29 U/L Normal <=31 [facility] Comment on above: Order Comment: 204 Performed By: #### L 500.4100, L500.4050, L100.0500 ####[facility] [address] [place], [address] Bilirubin [Mass/Vol] 0.55 mg/dL Normal 0.00-1.30 [facility] Comment on above: Order Comment: 204 Performed By: #### L 500.4100, L500.4050, L100.0500 ####[facility] [address] [place], [address] BUN/CRE 30.1 RATIO High 10-20 [facility] Comment on above: Order Comment: 204 Performed By: #### L 500.4100, L500.4050, L100.0500 ####[facility] [address] [place], [address] Calcium [Mass/Vol] 9.9 mg/dL Normal 7.6-11.0 [facility] Comment on above: Order Comment: 204 Performed By: #### L 500.4100, L500.4050, L100.0500 ####[facility] [address] [place], [address] Chloride [Moles/Vol] 99 mmol/L Normal 98-108 [facility] Comment on above: Order Comment: 204 Performed By: #### L 500.4100, L500.4050, L100.0500 ####[facility] [address] [place], [address] CO2 [Moles/Vol] 21.2 mmol/L Normal 21.0-32.0 [facility] Comment on above: Order Comment: 204 Performed By: #### L 500.4100, L500.4050, L100.0500 ####[facility] [address] [place], [address] Creatinine [Mass/Vol] 0.49 mg/dL Low 0.70-1.20 [facility] Comment on above: Order Comment: 204 Performed By: #### L 500.4100, L500.4050, L100.0500 ####[facility] [address] [place], [address] GAP 12 Normal 5-15 [facility] Comment on above: Order Comment: 204 Performed By: #### L 500.4100, L500.4050, L100.0500 ####[facility] [address] [place], [address] GFR/1.73 sq M.predicted among non-blacks MDRD (S/P/Bld) [Vol rate/Area] 97 mL/min/{1.73_m2} Normal >60 [facility] Comment on above: Order Comment: 204 Result Comment: mL/m in/1.73m2 CKD-EPI Creatinine Equation (2020) Performed By: #### L 500.4100, L500.4050, L100.0500 ####[facility] [address] [place], [address] Globulin (S) [Mass/Vol] 3.2 g/dL Normal 2.2-4.2 [facility] Comment on above: Order Comment: 204 Performed By: #### L 500.4100, L500.4050, L100.0500 ####[facility] [address] [place], [address] Glucose [Mass/Vol] 74 mg/dL Normal 70-99 [facility] Comment on above: Order Comment: 204 Performed By: #### L 500.4100, L500.4050, L100.0500 ####[facility] [address] [place], [address] Potassium [Moles/Vol] 4.1 mmol/L Normal 3.3-5.1 [facility] Comment on above: Order Comment: 204 Performed By: #### L 500.4100, L500.4050, L100.0500 ####[facility] [address] [place], [address] Sodium [Moles/Vol] 132 mmol/L Low 133-145 [facility] Comment on above: Order Comment: 204 Performed By: #### L 500.4100, L500.4050, L100.0500 ####[facility] [address] [place], [address] T PROT 6.3 g/dL Normal 5.9-8.4 [facility] Comment on above: Order Comment: 204 Performed By: #### L 500.4100, L500.4050, L100.0500 ####[facility] [address] [place], [address] Urea nitrogen [Mass/Vol] 15 mg/dL Normal 4-19 [facility] Comment on above: Order Comment: 204 Performed By: #### L 500.4100, L500.4050, L100.0500 ####[facility] [address] [place], [address] Erythrocyte distribution wid th ratioOrdered By: Pineda Morrison on 03-13-2025 Erythrocyte distribution width (RBC) [Ratio] 14.7 % High 11.6-14.6 [facility] Erythrocyte distribution wid th standard deviationOrdered By: Pineda Morrison on 03-13-2025 Erythrocyte distribution width (RBC) [Ratio] 47.8 fl High 35.1-43.9 [facility] Glomerular filtration rate ( GFR) estimation/1.73 sq m using serum, plasma, or whole bOrdered By: Pineda Morrison on 03-13-2025 GFR/1.73 sq M.predicted among non-blacks MDRD (S/P/Bld) [Vol rate/Area] 97 mL/min/{1.73_m2} >60 [facility] Comment on above: mL/min/1.73m2 CKD-EP I Creatinine Equation (2020) Hematocrit Auto (Bld) [Volum e fraction]Ordered By: Pineda Morrison on 03-13-2025 Hematocrit (Bld) [Volume fraction] 28.8 % Low 37-47 [facility] Hemoglobin measurementOrdere d By: Pineda Morrison on 03-13-2025 Hemoglobin (Bld) [Mass/Vol] 10.4 g/dL Low 12.0-15.0 [facility] LDL calc ser/plasOrdered By: Pineda Morrison on 03-13-2025 Cholesterol in LDL [Mass/Vol] 70 mg/dL [facility] Comment on above: Aioltqsban=813-252 m g/dL & Higher Zeaq=679 mg/dL or greater Laboratory - Chemistry and C hemistry - challengeOrdered By: Pineda Morrison on 03-13-2025 AST [Catalytic activity/Vol] 29 U/L <32 [facility] Lipid Profileon 03-13-2025 CHOL:HDL 3.18 Normal [facility] Comment on above: Order Comment: 204 Performed By: #### L 500.4100, L500.4050, L100.0500 ####[facility] [address] [place], [place], [id number] Cholesterol [Mass/Vol] 132 mg/dL Normal <=200 [facility] Comment on above: Order Comment: 204 Result Comment: Chol esterol level, Desirable <200 mg/dLBorderline high cholesterol 200-239 mg/dLHigh cholesterol >=240 mg/dLRecommendations of the NCEP Adult Treatment Panel for thefollowing risk-cutoff thresholds for the [place] Americanpopulation. Performed By: #### L 500.4100, L500.4050, L100.0500 ####[facility] [address] [place], [address] Cholesterol in HDL [Mass/Vol] 42 mg/dL Normal [facility] Comment on above: Order Comment: 204 Result Comment: Sydni onal Cholesterol Education Program (NCEP) guidelines:<40 mg/dL: Low HDL-cholesterol (major risk factor for CHD)>= 60 mg/dL: High HDL-cholesterol (negative risk factor forCHD)HDL-cholesterol is affected by a number of factors, e.g.smoking, exercise, hormones, sex and age. Performed By: #### L 500.4100, L500.4050, L100.0500 ####[facility] [address] [place], [address] Cholesterol in LDL [Mass/Vol] 70 mg/dL Normal [facility] Comment on above: Order Comment: 204 Result Comment: Bord nwdszo=546-196 mg/dL Higher Heam=588 mg/dL or greater Performed By: #### L 500.4100, L500.4050, L100.0500 ####[facility] [address] [place], [address] Cholesterol in VLDL [Mass/Vol] 20 mg/dL Normal 5-40 [facility] Comment on above: Order Comment: 204 Performed By: #### L 500.4100, L500.4050, L100.0500 ####[facility] [address] [place], [address] Triglyceride [Mass/Vol] 101 mg/dL Normal [facility] Comment on above: Order Comment: 204 Result Comment: The drugs N-Acetylcysteine and Metamizole may falselydepress this assay.Normal range: <150 mg/dLBorderline High: 150-199 mg/dLHigh: 200-499 mg/dLVery High: >500 mg/dL Performed By: #### L 500.4100, L500.4050, L100.0500 ####[facility] [address] [place], [place], [id number] MCV (mean corpuscular volume ) determinationOrdered By: Pineda Morrison on 03-13-2025 MCV (RBC) [Entitic vol] 89.7 fL 81-99 [facility] Mean corpuscular hemoglobin (MCH) determinationOrdered By: Pineda Morrison on 03-13-2025 MCH (RBC) [Entitic mass] 32.4 pg High 27.0-32.0 [facility] Mean corpuscular hemoglobin concentration (MCHC) determinationOrdered By: Pineda Morrison on 03-13-2025 MCHC (RBC) [Mass/Vol] 36.1 g/dL High 32-36 [facility] Mean platelet volume determi nationOrdered By: Pineda Morrison on 03-13-2025 Platelet mean volume (Bld) [Entitic vol] 9.4 fL 6.2-12.0 [facility] Platelet countOrdered By: Jacky Morrison on 03-13-2025 Platelets (Bld) [#/Vol] 240 10*3/uL 150-450 [facility] Potassium measurement (mass/ volume)Ordered By: Pineda Morrison on 03-13-2025 Potassium (Unsp spec) [Mass/Vol] 4.1 mmol/L 3.3-5.1 [facility] RBC Auto (Bld) [#/Vol]Ordere d By: Pineda Morrison on 03-13-2025 RBC (Bld) [#/Vol] 3.21 10*6/uL Low 4.2-5.4 [facility] Screening total cholesterol/ high density lipoprotein (HDL) cholesterol ratioOrdered By: Pineda Morrison on 03-13-2025 Cholesterol.total/Cholest kin in HDL [Mass ratio] 3.18 {ratio} [facility] Serum creatinine measurement (mass/volume)Ordered By: Pineda Morrison on 03-13-2025 Creatinine [Mass/Vol] 0.49 mg/dL Low 0.70-1.20 [facility] Serum globulin measurementOr dered By: Pineda Morrison on 03-13-2025 Globulin (S) [Mass/Vol] 3.2 g/dL 2.2-4.2 [facility] Serum glucose measurement (m ass/volume)Ordered By: Pineda Morrison on 03-13-2025 Glucose [Mass/Vol] 74 mg/dL 70-99 [facility] Serum or plasma alanine cornejo otransferase (ALT) measurementOrdered By: Pineda Morrison on 03-13-2025 ALT [Catalytic activity/Vol] 6 U/L <35 [facility] Serum or plasma albumin sabino urement (mass/volume)Ordered By: Pineda Morrison on 03-13-2025 Albumin [Mass/Vol] 3.1 g/dL Low 3.4-4.8 [facility] Serum or plasma albumin/glob ulin mass ratioOrdered By: Pineda Morrison on 03-13-2025 Albumin/Globulin [Mass ratio] 1.0 {ratio} 0.9-2.4 [facility] Serum or plasma alkaline shaista sphatase measurementOrdered By: Pineda Morrison on 03-13-2025 ALP [Catalytic activity/Vol] 130 U/L High 35-104 [facility] Serum or plasma calcium sabino urement (mass/volume)Ordered By: Pineda Morrison on 03-13-2025 Calcium [Mass/Vol] 9.9 mg/dL 7.6-11.0 [facility] Serum or plasma cholesterol in HDL measurement (mass/volume)Ordered By: Pineda Morrison on 03-13-2025 Cholesterol in HDL [Mass/Vol] 42 mg/dL >40 [facility] Comment on above: National Cholesterol Education Program (NCEP) guidelines:<40 mg/dL: Low HDL-cholesterol (major risk factor for CHD)>= 60 mg/dL: High HDL-cholesterol (negative risk factor for CHD)HDL-cholesterol is affected by a number of factors, e.g. smoking, exercise, hormones, sex and age. Serum or plasma cholesterol measurement (mass/volume)Ordered By: Pineda Morrison on 03-13-2025 Cholesterol [Mass/Vol] 132 mg/dL <201 [facility] Comment on above: Cholesterol level, D esirable <200 mg/dLBorderline high cholesterol 200-239 mg/dLHigh cholesterol >=240 mg/dLRecommendations of the NCEP Adult Treatment Panel for the following risk-cutoff thresholds for the [place] population. Serum or plasma urea nitroge n measurement (mass/volume)Ordered By: Pineda Morrison on 03-13-2025 Urea nitrogen [Mass/Vol] 15 mg/dL 4- [facility] Sodium levelOrdered By: Jeffrey Morrison on 03-13-2025 Sodium [Moles/Vol] 132 mmol/L Low 133-145 [facility] Total proteinOrdered By: Marshal Morrison on 03-13-2025 Protein [Mass/Vol] 6.3 g/dL 5.9-8.4 [facility] Triglycerides measurementOrd ered By: Pineda Morrison on 03-13-2025 Triglyceride [Mass/Vol] 101 mg/dL <199 [facility] Comment on above: The drugs N-Acetylcy steine and Metamizole may falsely depress this assay. Normal range: <150 mg/dLBorderline High: 150-199 mg/dLHigh: 200-499 mg/dLVery High: >500 mg/dL White blood cell (WBC) count Ordered By: Pineda Morrison on 03-13-2025 WBC (Bld) [#/Vol] 6.3 10*3/uL 4.4-11.0 [facility] Anion gap in Serum or Plasma Ordered By: Katie Bah on 03-05-2025 Anion gap [Moles/Vol] 11 mmol/L 01-04 [facility] BUN/creatinine ratioOrdered By: Katie Bah on 03-05-2025 Urea nitrogen/Creatinine [Mass ratio] 31.2 mg/mg High 06-11 [facility] Basic Metabolic Profile (BMP )on 03-05-2025 BUN/CRE 31.2 RATIO High 06-11 [facility] Comment on above: Performed By: #### L 500.2500, L501.5200, L100.0600 ####[facility] [address] [place], [place], [id number] Calcium [Mass/Vol] 9.2 mg/dL Normal 7.6-11.0 [facility] Comment on above: Performed By: #### L 500.2500, L501.5200, L100.0600 ####[facility] [address] [place], [address] Chloride [Moles/Vol] 102 mmol/L Normal 98-108 [facility] Comment on above: Performed By: #### L 500.2500, L501.5200, L100.0600 ####[facility] [address] [place], [address] CO2 [Moles/Vol] 21.2 mmol/L Normal 21.0-32.0 [facility] Comment on above: Performed By: #### L 500.2500, L501.5200, L100.0600 ####[facility] [address] [place], [address] Creatinine [Mass/Vol] 0.54 mg/dL Low 0.70-1.20 [facility] Comment on above: Performed By: #### L 500.2500, L501.5200, L100.0600 ####[facility] [address] [place], [address] ECRCL 50.99 ml/min Normal 50-250 [facility] Comment on above: Performed By: #### L 500.2500, L501.5200, L100.0600 ####[facility] [address] [place], [address] GAP 11 Normal 5-15 [facility] Comment on above: Performed By: #### L 500.2500, L501.5200, L100.0600 ####[facility] [address] [place], [address] GFR/1.73 sq M.predicted among non-blacks MDRD (S/P/Bld) [Vol rate/Area] 95 mL/min/{1.73_m2} Normal >60 [facility] Comment on above: Result Comment: mL/m in/1.73m2 CKD-EPI Creatinine Equation (2020) Performed By: #### L 500.2500, L501.5200, L100.0600 ####[facility] [address] [place], [address] Glucose [Mass/Vol] 90 mg/dL Normal 70-99 [facility] Comment on above: Performed By: #### L 500.2500, L501.5200, L100.0600 ####[facility] [address] [place], [address] Potassium [Moles/Vol] 4.1 mmol/L Normal 3.3-5.1 [facility] Comment on above: Performed By: #### L 500.2500, L501.5200, L100.0600 ####[facility] [address] [place], [address] Sodium [Moles/Vol] 134 mmol/L Normal 133-145 [facility] Comment on above: Performed By: #### L 500.2500, L501.5200, L100.0600 ####[facility] [address] [place], [address] Urea nitrogen [Mass/Vol] 17 mg/dL Normal 4-19 [facility] Comment on above: Performed By: #### L 500.2500, L501.5200, L100.0600 ####[facility] [address] [place], [address] Carbon dioxide, total [Moles /volume] in Central venous bloodOrdered By: Katie Bah on 03-05-2025 CO2 [Moles/Vol] 21.2 mmol/L 21.0-32.0 [facility] Chloride assayOrdered By: Shahida Bah on 03-05-2025 Chloride [Moles/Vol] 102 mmol/L 98-108 [facility] Glomerular filtration rate ( GFR) estimation/1.73 sq m using serum, plasma, or whole bOrdered By: Katie Bah on 03-05-2025 GFR/1.73 sq M.predicted among non-blacks MDRD (S/P/Bld) [Vol rate/Area] 95 mL/min/{1.73_m2} >60 [facility] Comment on above: mL/min/1.73m2 CKD-EP I Creatinine Equation (2020) HH, Hemoglobin AND Hematocri ton 03-05-2025 Hematocrit (Bld) [Volume fraction] 27.0 % Low 37-47 [facility] Comment on above: Performed By: #### L 500.2500, L501.5200, L100.0600 ####[facility] [address] [place], [address] Hemoglobin (Bld) [Mass/Vol] 9.5 g/dL Low 12.0-15.0 [facility] Comment on above: Performed By: #### L 500.2500, L501.5200, L100.0600 ####[facility] [address] [place], [address] Hematocrit Auto (Bld) [Volum e fraction]Ordered By: Katie Bah on 03-05-2025 Hematocrit (Bld) [Volume fraction] 27.0 % Low 37-47 [facility] Hemoglobin measurementOrdere d By: Katie Bah on 03-05-2025 Hemoglobin (Bld) [Mass/Vol] 9.5 g/dL Low 12.0-15.0 [facility] Magnesiumon 03-05-2025 Magnesium [Mass/Vol] 1.9 mg/dL Normal 1.5-2.2 [facility] Comment on above: Performed By: #### L 500.2500, L501.5200, L100.0600 ####[facility] [address] [place], [address] Magnesium measurement (mass/ volume)Ordered By: Katie Bah on 03-05-2025 Magnesium (Unsp spec) [Mass/Vol] 1.9 mg/dL 1.5-2.2 [facility] Potassium measurement (mass/ volume)Ordered By: Katie Bah on 03-05-2025 Potassium (Unsp spec) [Mass/Vol] 4.1 mmol/L 3.3-5.1 [facility] Serum creatinine measurement (mass/volume)Ordered By: Katie Kimjaquan on 03-05-2025 Creatinine [Mass/Vol] 0.54 mg/dL Low 0.70-1.20 [facility] Serum glucose measurement (m ass/volume)Ordered By: Katie Kimjaquan on 03-05-2025 Glucose [Mass/Vol] 90 mg/dL 70-99 [facility] Serum or plasma calcium sabino urement (mass/volume)Ordered By: Katie Olvin on 03-05-2025 Calcium [Mass/Vol] 9.2 mg/dL 7.6-11.0 [facility] Serum or plasma urea nitroge n measurement (mass/volume)Ordered By: Katie Olvin on 03-05-2025 Urea nitrogen [Mass/Vol] 17 mg/dL 4-19 [facility] Sodium levelOrdered By: Katie Olvin on 03-05-2025 Sodium [Moles/Vol] 134 mmol/L 133-145 [facility] Bedside Glucoseon 03-03-2025 FINGERSTICK GLU 175 mg/dL High 74-106 [facility] Comment on above: Result Comment: MARINA GEMENT OF PATIENT CARE PER NURSING PROTOCOL Performed By: #### L 501.080 ####[facility] [address] [place], [place], [address] FINGERSTICK GLU 125 mg/dL High 74-106 [facility] Comment on above: Result Comment: MARINA GEMENT OF PATIENT CARE PER NURSING PROTOCOL Performed By: #### L 501.080 ####[facility] [address] [place], [place], [address] [facility] deOrdered By: Katie Olvin on 03-03-2025 Glucose [Mass/Vol] 175 mg/dL High 74-106 [facility] Comment on above: MANAGEMENT OF PATIEN T CARE PER NURSING PROTOCOL Bedside Glucoseon 03-02-2025 FINGERSTICK GLU 133 mg/dL High 74-106 [facility] Comment on above: Result Comment: MARINA GEMENT OF PATIENT CARE PER NURSING PROTOCOL Performed By: #### L 501.080 ####[facility] [address] [place], [place], [address] FINGERSTICK GLU 119 mg/dL High 74-106 [facility] Comment on above: Result Comment: MARINA GEMENT OF PATIENT CARE PER NURSING PROTOCOL Performed By: #### L 501.080 ####[facility] [address] [place], [address] Femur Min 2 Viewson 03-02-20 25 Femur Min 2 Views Normal [facility] Pelvis 1 or 2 Viewson 2024 Pelvis 1 or 2 Views Normal [facility] Bedside Glucoseon 03-01-2025 FINGERSTICK GLU 157 mg/dL High 74-106 [facility] Comment on above: Result Comment: MARINA GEMENT OF PATIENT CARE PER NURSING PROTOCOL Performed By: #### L 501.080 ####[facility] [address] [place], [address] FINGERSTICK GLU 115 mg/dL High 74-106 [facility] Comment on above: Result Comment: MARINA GEMENT OF PATIENT CARE PER NURSING PROTOCOL Performed By: #### L 501.080 ####[facility] [address] [place], [address] Venous Duplex US, Unilateral on 03-01-2025 Venous Duplex US, Unilateral Normal [facility] Venous duplex ultrasound rep ortOrdered By: Baldev Kaba on 03-01-2025 US Vein [facility] [address] [place] [address] Venous Duplex US, Unilateral 03/01/25 1257 MR#: [id number] Acct: [id number] Name: SHASHI OSWALD Rep #:[id number] : 1945 79 From: Baldev Guajardo Attending Dr: Dr. Katie Bah, Status: ADM IN Ordering Dr: Katie Bah DO Date: 03/01/25 Location: Sex: F C Admitted: 02/21/25 Reason [...] Candelario Santana Chi Performed By: Roman Fish, ISAURO 03/01/25 1607 Date _ Baldev Kaba MD CC: Dr. Katie Bah DO; Dr. Candelario Santana MD ~ Date Dictated: 03/01/25 1257 Date Transcribed: 03/01/251606 Tub Tender: Signed [facility] Work Phone: Bedside Glucoseon 02-28-2025 FINGERSTICK GLU 106 mg/dL Normal 74-106 [facility] Comment on above: Result Comment: MARINA FERNANDEZ OF PATIENT CARE PER NURSING PROTOCOL Performed By: #### L 501.080 ####[facility] [address] [place], [address] Bedside Glucoseon 02-27-2025 FINGERSTICK GLU 112 mg/dL High 74-106 [facility] Comment on above: Result Comment: MARINA LARESENT OF PATIENT CARE PER NURSING PROTOCOL Performed By: #### L 501.080 ####[facility] [address] [place], [address] FINGERSTICK GLU 131 mg/dL High 74-106 [facility] Comment on above: Result Comment: MARINA GEMENT OF PATIENT CARE PER NURSING PROTOCOL Performed By: #### L 501.080 ####[facility] [address] [place], [address] Echocardiogram study reportO rdered By: Steve Werner on 02-27-2025 Study report [facility] [address] [place] [address] Echo Complete 02/27/25 1028 MR#: [id number] Acct: [id number] Name: SHASHI OSWALD Rep #:[id number] : 1945 79 From: Steve Guajardo Attending Dr: Dr. Katie Bah, Status: ADM IN Ordering Dr: Katie Bah [...] Chi Performed By: Patricia Mckeon RDCS 02/27/25 144 Date _ Steve Werner MD CC: Dr. Katie Bah DO; Dr. Candelario Santana MD ~ Date Dictated: 02/27/25 1028 Date Transcribed: 02/27/251448 Tub Tender: Signed [facility] Work Phone: Basic Metabolic Profile (BMP )on 02-26-2025 BUN/CRE 23.8 RATIO High 10-20 [facility] Comment on above: Performed By: #### L 100.0600, L500.2500, L503.0106 ####[facility] [address] [place], [address] Calcium [Mass/Vol] 8.6 mg/dL Normal 7.6-11.0 [facility] Comment on above: Performed By: #### L 100.0600, L500.2500, L503.0106 ####[facility] [address] [place], [address] Chloride [Moles/Vol] 101 mmol/L Normal 98-108 [facility] Comment on above: Performed By: #### L 100.0600, L500.2500, L503.0106 ####[facility] [address] [place], [address] CO2 [Moles/Vol] 25.0 mmol/L Normal 21.0-32.0 [facility] Comment on above: Performed By: #### L 100.0600, L500.2500, L503.0106 ####[facility] [address] [place], [address] Creatinine [Mass/Vol] 0.52 mg/dL Low 0.70-1.20 [facility] Comment on above: Performed By: #### L 100.0600, L500.2500, L503.0106 ####[facility] [address] [place], [address] ECRCL 51.41 ml/min Normal 50-250 [facility] Comment on above: Performed By: #### L 100.0600, L500.2500, L503.0106 ####[facility] [address] [place], [address] GAP 7 Normal 5-15 [facility] Comment on above: Performed By: #### L 100.0600, L500.2500, L503.0106 ####[facility] [address] [place], [address] GFR/1.73 sq M.predicted among non-blacks MDRD (S/P/Bld) [Vol rate/Area] 96 mL/min/{1.73_m2} Normal >60 [facility] Comment on above: Result Comment: mL/m in/1.73m2 CKD-EPI Creatinine Equation (2020) Performed By: #### L 100.0600, L500.2500, L503.0106 ####[facility] [address] [place], [address] Glucose [Mass/Vol] 126 mg/dL High 70-99 [facility] Comment on above: Performed By: #### L 100.0600, L500.2500, L503.0106 ####[facility] [address] [place], [address] Potassium [Moles/Vol] 3.9 mmol/L Normal 3.3-5.1 [facility] Comment on above: Performed By: #### L 100.0600, L500.2500, L503.0106 ####[facility] [address] [place], [address] Sodium [Moles/Vol] 133 mmol/L Normal 133-145 [facility] Comment on above: Performed By: #### L 100.0600, L500.2500, L503.0106 ####[facility] [address] [place], [address] Urea nitrogen [Mass/Vol] 12 mg/dL Normal 4-19 [facility] Comment on above: Performed By: #### L 100.0600, L500.2500, L503.0106 ####[facility] [address] [place], [address] Bedside Glucoseon 02-26-2025 FINGERSTICK GLU 142 mg/dL High 74-106 [facility] Comment on above: Result Comment: MARINA GEMENT OF PATIENT CARE PER NURSING PROTOCOL Performed By: #### L 501.080 ####[facility] [address] [place], [address] FINGERSTICK GLU 121 mg/dL High 74-106 [facility] Comment on above: Result Comment: MARINA GEMENT OF PATIENT CARE PER NURSING PROTOCOL Performed By: #### L 501.080 ####[facility] [address] [place], [address] Echo Completeon 02-26-2025 Echo Complete Normal [facility] Electrocardiogram reportOrde red By: Steve Werner on 02-26-2025 [address] [facility] Cardiovascular Services [address] [place] [address] 12 Lead EKG 02/23/25 1235 MR#: [id number] Acct: [id number] Name: SHASHI OSWALD Rep #:[id number] : 1945 79 From: Steve Werner MD [...] has undetermined rhythm, needs review Confirmed by STEVE WERNER MD ([id number]), editor news CHIOMA ARRIAZA ([id number]) on 02/26/2025 1:19:46 PM Referred By: Kaite Bah Confirmed By: STEVE WERNER MD 02/26/25 1319 Date _ Steve Werner MD CC: Dr. Katie Bah, DO; Dr. Candelario Santana MD ~ Signed [facility] Work Phone: HH, Hemoglobin AND Hematocri ton 02-26-2025 Hematocrit (Bld) [Volume fraction] 24.4 % Low 37-47 [facility] Comment on above: Performed By: #### L 100.0600, L500.2500, L503.0106 ####[facility] [address] [place], [address] Hemoglobin (Bld) [Mass/Vol] 8.4 g/dL Low 12.0-15.0 [facility] Comment on above: Performed By: #### L 100.0600, L500.2500, L503.0106 ####[facility] [address] [place], [address] Vitamin B12on 02-26-2025 Cobalamin (Vitamin B12) [Mass/Vol] 366 pg/mL Normal 180-914 [facility] Comment on above: Performed By: #### L 100.0600, L500.2500, L503.0106 ####[facility] [address] [place], [address] Vitamin B12 ser/plasOrdered By: Katie Bah on 02-26-2025 Cobalamin (Vitamin B12) [Mass/Vol] 366 pg/mL 180-914 [facility] Bedside Glucoseon 02-25-2025 FINGERSTICK GLU 184 mg/dL High 74-106 [facility] Comment on above: Result Comment: MARINA GEMENT OF PATIENT CARE PER NURSING PROTOCOL Performed By: #### L 501.080 ####[facility] [address] [place], [address] FINGERSTICK GLU 121 mg/dL High [address] [place] [address] Comment on above: Result Comment: MARINA GEMENT OF PATIENT CARE PER NURSING PROTOCOL Performed By: #### L 501.080 ####[facility] [address] [place], [address] FINGERSTICK GLU 214 mg/dL High -106 [facility] Comment on above: Result Comment: MARINA GEMENT OF PATIENT CARE PER NURSING PROTOCOL Performed By: #### L 501.080 ####[facility] [address] [place], [address] FINGERSTICK GLU 141 mg/dL High -[address] [place] [address] Comment on above: Result Comment: MARINA GEMENT OF PATIENT CARE PER NURSING PROTOCOL Performed By: #### L 501.080 ####[facility] [address] [place], [address] Urine Cultureon 02-25-2025 URC Normal [facility] Comment on above: Performed By: #### L 400.0001, M100.2200 ####[facility] [address] [place], [address] Bedside Glucoseon 02-24-2025 FINGERSTICK GLU 199 mg/dL High -[address] [place] [address] Comment on above: Result Comment: MARINA GEMENT OF PATIENT CARE PER NURSING PROTOCOL Performed By: #### L 501.080 ####[facility] [address] [place], [address] FINGERSTICK GLU 152 mg/dL High [address] [place] [address] Comment on above: Result Comment: MARINA GEMENT OF PATIENT CARE PER NURSING PROTOCOL Performed By: #### L 501.080 ####[facility] [address] [place], [address] FINGERSTICK GLU 196 mg/dL High 74-106 [facility] Comment on above: Result Comment: MARINA GEMENT OF PATIENT CARE PER NURSING PROTOCOL Performed By: #### L 501.080 ####[facility] [address] [place], [address] FINGERSTICK GLU 147 mg/dL High 74-106 [facility] Comment on above: Result Comment: MARINA GEMENT OF PATIENT CARE PER NURSING PROTOCOL Performed By: #### L 501.080 ####[facility] [address] [place], [address] 12 Lead EKGon 02-23-2025 12 Lead EKG Normal [facility] Bedside Glucoseon 02-23-2025 FINGERSTICK GLU 162 mg/dL High -106 [facility] Comment on above: Result Comment: MARINA GEMENT OF PATIENT CARE PER NURSING PROTOCOL Performed By: #### L 501.080 ####[facility] [address] [place], [address] FINGERSTICK GLU 183 mg/dL High 74-106 [facility] Comment on above: Result Comment: MARINA GEMENT OF PATIENT CARE PER NURSING PROTOCOL Performed By: #### L 501.080 ####[facility] [address] [place], [address] FINGERSTICK GLU 185 mg/dL High 74-106 [facility] Comment on above: Result Comment: MARINA GEMENT OF PATIENT CARE PER NURSING PROTOCOL Performed By: #### L 501.080 ####[facility] [address] [place], [address] FINGERSTICK GLU 153 mg/dL High 74-106 [facility] Comment on above: Result Comment: MARINA GEMENT OF PATIENT CARE PER NURSING PROTOCOL Performed By: #### L 501.080 ####[facility] [address] [place], [place], [address] Bilirubin Test strip Ql (U)O rdered By: Katie Kimjaquan on 02-23-2025 Bilirubin Ql (U) Negative Negative [facility] Ketones Test strip Ql (U)Ord ered By: Katie Kimjaquan on 02-23-2025 Ketones Ql (U) Negative Negative [facility] Microscopic analysis of urin e for red blood cells (RBC)Ordered By: Katie Olvin on 02-23-2025 Microscopic analysis of urine for red blood cells (RBC) 0 SEEN /hpf 0-5 [facility] Mucus LM Ql (Urine sed)Order ed By: Katie Olvin on 02-23-2025 Mucus Ql (Urine sed) 0 SEEN /hpf [facility] Nitrite Test strip Ql (U)Ord ered By: Katie Kimjaquan on 02-23-2025 Nitrite Ql (U) Negative Negative [facility] Protein Test strip Ql (U)Ord ered By: Katie Olvin on 02-23-2025 Protein Ql (U) 30 mg/dl High Negative [facility] Squamous epithelial cells de tection in urine sediment by light microscopyOrdered By: Katie Olvin on 02-23-2025 Epithelial cells.squamous LM Ql (Urine sed) 0 SEEN /hpf 5-10 [facility] Urinalysis, Completeon 02-23 BACTERIA 1+ /hpf Normal None Seen [facility] Comment on above: Order Comment: BLADD ER TAP Performed By: #### L 400.0001, ####[facility] [address] [place], [place], [id number] WBC 0-5 SEEN Normal 0-5 [facility] Comment on above: Order Comment: BLADD ER TAP Performed By: #### L 400.0001, .2199 ####[facility] [address] [place], [place], [id number] EPI,SQUAMOUS 0 SEEN Normal 5-10 [facility] Comment on above: Order Comment: BLADD ER TAP Performed By: #### L 400.0001, ####[facility] [address] [place], [address] Mucus Ql (Urine sed) 0 SEEN Normal [facility] Comment on above: Order Comment: BLADD ER TAP Performed By: #### L 400.0001, M100.2200 ####[facility] [address] [place], [address] RBC 0 SEEN Normal 0-5 [facility] Comment on above: Order Comment: BLADD ER TAP Performed By: #### L 400.0001, M100.2200 ####[facility] [address] [place], [address] RBC 0-5 SEEN Normal 0-5 [facility] Comment on above: Order Comment: CLEAN CATCH Performed By: #### L 400.0001 ####[facility] [address] [place], [address] WBC 25-50 SEEN Normal 0-5 [facility] Comment on above: Order Comment: CLEAN CATCH Performed By: #### L 400.0001 ####[facility] [address] [place], [address] BACTERIA 3+ /hpf Normal None Seen [facility] Comment on above: Order Comment: CLEAN CATCH Performed By: #### L 400.0001 ####[facility] [address] [place], [address] EPI,SQUAMOUS 0-5 SEEN Normal 5-10 [facility] Comment on above: Order Comment: CLEAN CATCH Performed By: #### L 400.0001 ####[facility] [address] [place], [address] Urine clarityOrdered By: Joya Bah on 02-23-2025 Clarity (U) Clear Clear [facility] Urine color determinationOrd ered By: Katie Bah on 02-23-2025 Color (U) Yellow Yellow [facility] Urine cultureOrdered By: Joya Bah on 02-23-2025 Bacteria identified Cx Nom (U) Escherichia coli Abnormal [facility] Urine glucose detectionOrder ed By: Katie Kimjaquan on 02-23-2025 Glucose Ql (U) 50 mg/dl High Normal [facility] Urine leukocyte esterase det ection by dipstickOrdered By: Katie Olvin on 02-23-2025 Leukocyte esterase Test strip Ql (U) 100 /ul High Negative [facility] Urine pHOrdered By: Katie Radha hanna on 02-23-2025 pH (U) 7.0 [pH] 5.0 - 8.0 [facility] Urine sediment bacteria coun t by microscopy (number/high power field)Ordered By: Katie Olvin on 02-23-2025 Bacteria LM.HPF (Urine sed) [#/Area] 1 /[HPF] None Seen [facility] Urine specific gravity measu rementOrdered By: Katie Olvin on 02-23-2025 Specific gravity (U) [Rel density] 1.010 1.002-1.030 [facility] Urine urobilinogen measureme ntOrdered By: Katie Olvin on 02-23-2025 Urobilinogen Ql (U) Normal mg/dl Normal [facility] White blood cell countOrdere d By: Katie Olvin on 02-23-2025 White blood cell count 0-5 SEEN /hpf 0-5 [facility] Absolute lymphocyte countOrd ered By: Katie Olvin on 02-22-2025 Lymphocytes Auto (Unsp spec) [#/Vol] 1.94 10*3/uL 0.83-4.51 [facility] Absolute neutrophil countOrd ered By: Katie Bah on 02-22-2025 Neutrophils (Bld) [#/Vol] 5.3 10*3/uL 2.0-7.7 [facility] Automated lymphocyte count a s percentage of total leukocytesOrdered By: Katie Olvin on 02-22-2025 Lymphocytes/100 WBC Auto (Unsp spec) 23.7 % 19-41 [facility] Basophil percentageOrdered B y: Katie Olvin on 02-22-2025 Basophils/100 WBC (Bld) 0.4 % 0-1 [facility] Bedside Glucoseon 02-22-2025 FINGERSTICK GLU 182 mg/dL High 74-106 [facility] Comment on above: Result Comment: MARINA GEMENT OF PATIENT CARE PER NURSING PROTOCOL Performed By: #### L 501.080 ####[facility] [address] [place], [address] FINGERSTICK GLU 195 mg/dL High 74-106 [facility] Comment on above: Result Comment: MARINA GEMENT OF PATIENT CARE PER NURSING PROTOCOL Performed By: #### L 501.080 ####[facility] [address] [place], [address] FINGERSTICK GLU 254 mg/dL High 74-106 [facility] Comment on above: Result Comment: MARINA GEMENT OF PATIENT CARE PER NURSING PROTOCOL Performed By: #### L 501.080 ####[facility] [address] [place], [address] FINGERSTICK GLU 189 mg/dL High [facility]106 [facility] Comment on above: Result Comment: MARINA GEMENT OF PATIENT CARE PER NURSING PROTOCOL Performed By: #### L 501.080 ####[facility] [address] [place], [address] Bilirubin, totalOrdered By: Katie Bah on 02-22-2025 Bilirubin [Mass/Vol] 1.00 mg/dL 0.00-1.30 [facility] CBC W/Diff, Automatedon Absolute Lymph 1.94 X10 3/uL Normal 0.83-4.51 [facility] Comment on above: Performed By: #### L 501.2300, L501.5200, L100.0100, L500.4050 ####[facility] [address] [place], [address] Absolute Neut 5.3 X10 3/uL Normal 2.0-7.7 [facility] Comment on above: Performed By: #### L 501.2300, L501.5200, L100.0100, L500.4050 ####[facility] [address] [place], [address] Basophils/100 WBC (Bld) 0.4 % Normal 0-1 [facility] Comment on above: Performed By: #### L 501.2300, L501.5200, L100.0100, L500.4050 ####[facility] [address] [place], [address] Eosinophils/100 WBC (Bld) 3.0 % Normal 0-5 [facility] Comment on above: Performed By: #### L 501.2300, L501.5200, L100.0100, L500.4050 ####[facility] [address] [place], [address] Erythrocyte distribution width (RBC) [Ratio] 15.4 % High 11.6-14.6 [facility] Comment on above: Performed By: #### L 501.2300, L501.5200, L100.0100, L500.4050 ####[facility] [address] [place], [address] Hematocrit (Bld) [Volume fraction] 24.1 % Low 37-47 [facility] Comment on above: Performed By: #### L 501.2300, L501.5200, L100.0100, L500.4050 ####[facility] [address] [place], [address] Hemoglobin (Bld) [Mass/Vol] 8.5 g/dL Low 12.0-15.0 [facility] Comment on above: Performed By: #### L 501.2300, L501.5200, L100.0100, L500.4050 ####[facility] [address] [place], [address] IG% 0.700 Normal 0.0-0.9 [facility] Comment on above: Result Comment: IG% - Immature Granulocytes (promyelocytes, myelocytes andmetamyelocytes) > 1% indicates that a LEFT SHIFT is Present. Performed By: #### L 501.2300, L501.5200, L100.0100, L500.4050 ####[facility] [address] [place], [address] Lymphocytes/100 WBC (Bld) 23.7 % Normal 19-41 [facility] Comment on above: Performed By: #### L 501.2300, L501.5200, L100.0100, L500.4050 ####[facility] [address] [place], [address] MCH (RBC) [Entitic mass] 31.5 pg Normal 27.0-32.0 [facility] Comment on above: Performed By: #### L 501.2300, L501.5200, L100.0100, L500.4050 ####[facility] [address] [place], [address] MCHC (RBC) [Mass/Vol] 35.3 g/dL Normal 32-36 [facility] Comment on above: Performed By: #### L 501.2300, L501.5200, L100.0100, L500.4050 ####[facility] [address] [place], [address] MCV (RBC) [Entitic vol] 89.3 fL Normal 81-99 [facility] Comment on above: Performed By: #### L 501.2300, L501.5200, L100.0100, L500.4050 ####[facility] [address] [place], [address] Monocytes/100 WBC (Bld) 7.2 % Normal 0-10 [facility] Comment on above: Performed By: #### L 501.2300, L501.5200, L100.0100, L500.4050 ####[facility] [address] [place], [address] Neutrophils/100 WBC (Bld) 65.0 % Normal 47-70 [facility] Comment on above: Performed By: #### L 501.2300, L501.5200, L100.0100, L500.4050 ####[facility] [address] [place], [address] Nucleated RBC (Bld) [#/Vol] 0 10*3/uL Normal 0-5 [facility] Comment on above: Performed By: #### L 501.2300, L501.5200, L100.0100, L500.4050 ####[facility] [address] [place], [address] Platelet mean volume (Bld) [Entitic vol] 8.8 fL Normal 6.2-12.0 [facility] Comment on above: Performed By: #### L 501.2300, L501.5200, L100.0100, L500.4050 ####[facility] [address] [place], [address] Platelets (Bld) [#/Vol] 282 10*3/uL Normal 150-450 [facility] Comment on above: Performed By: #### L 501.2300, L501.5200, L100.0100, L500.4050 ####[facility] [address] [place], [address] RBC (Bld) [#/Vol] 2.70 10*6/uL Low 4.2-5.4 [facility] Comment on above: Performed By: #### L 501.2300, L501.5200, L100.0100, L500.4050 ####[facility] [address] [place], [address] RDW SD 49.5 fl High 35.1-43.9 [facility] Comment on above: Performed By: #### L 501.2300, L501.5200, L100.0100, L500.4050 ####[facility] [address] [place], [address] WBC (Bld) [#/Vol] 8.2 10*3/uL Normal 4.4-11.0 [facility] Comment on above: Performed By: #### L 501.2300, L501.5200, L100.0100, L500.4050 ####[facility] [address] [place], [address] Comprehensive Metabolic Prof [facility] 02-22-2025 Albumin [Mass/Vol] 2.6 g/dL Low 3.4-4.8 [facility] Comment on above: Performed By: #### L 501.2300, L501.5200, L100.0100, L500.4050 ####[facility] [address] [place], [address] Albumin/Globulin [Mass ratio] 0.9 {ratio} Normal 0.9-2.4 [facility] Comment on above: Performed By: #### L 501.2300, L501.5200, L100.0100, L500.4050 ####[facility] [address] [place], [address] ALK PHOS 106 U/L High 35-104 [facility] Comment on above: Performed By: #### L 501.2300, L501.5200, L100.0100, L500.4050 ####[facility] [address] [place], [address] ALT [Catalytic activity/Vol] U/L Normal <=34 [facility] Comment on above: Performed By: #### L 501.2300, L501.5200, L100.0100, L500.4050 ####[facility] [address] [place], [address] AST [Catalytic activity/Vol] 31 U/L Normal <=31 [facility] Comment on above: Performed By: #### L 501.2300, L501.5200, L100.0100, L500.4050 ####[facility] [address] [place], [address] Bilirubin [Mass/Vol] 1.00 mg/dL Normal 0.00-1.30 [facility] Comment on above: Performed By: #### L 501.2300, L501.5200, L100.0100, L500.4050 ####[facility] [address] [place], [address] BUN/CRE 32.5 RATIO High 10-20 [facility] Comment on above: Performed By: #### L 501.2300, L501.5200, L100.0100, L500.4050 ####[facility] [address] [place], [address] Calcium [Mass/Vol] 8.6 mg/dL Normal 7.6-11.0 [facility] Comment on above: Performed By: #### L 501.2300, L501.5200, L100.0100, L500.4050 ####[facility] [address] [place], [address] Chloride [Moles/Vol] 99 mmol/L Normal 98-108 [facility] Comment on above: Performed By: #### L 501.2300, L501.5200, L100.0100, L500.4050 ####[facility] [address] [place], [address] CO2 [Moles/Vol] 23.6 mmol/L Normal 21.0-32.0 [facility] Comment on above: Performed By: #### L 501.2300, L501.5200, L100.0100, L500.4050 ####[facility] [address] [place], [address] Creatinine [Mass/Vol] 0.47 mg/dL Low 0.70-1.20 [facility] Comment on above: Performed By: #### L 501.2300, L501.5200, L100.0100, L500.4050 ####[facility] [address] [place], [address] ECRCL 51.41 ml/min Normal 50-250 [facility] Comment on above: Performed By: #### L 501.2300, L501.5200, L100.0100, L500.4050 ####[facility] [address] [place], [address] GAP 8 Normal 5-15 [facility] Comment on above: Performed By: #### L 501.2300, L501.5200, L100.0100, L500.4050 ####[facility] [address] [place], [address] GFR/1.73 sq M.predicted among non-blacks MDRD (S/P/Bld) [Vol rate/Area] 98 mL/min/{1.73_m2} Normal >60 [facility] Comment on above: Result Comment: mL/m in/1.73m2 CKD-EPI Creatinine Equation (2020) Performed By: #### L 501.2300, L501.5200, L100.0100, L500.4050 ####[facility] [address] [place], [address] Globulin (S) [Mass/Vol] 3.0 g/dL Normal 2.2-4.2 [facility] Comment on above: Performed By: #### L 501.2300, L501.5200, L100.0100, L500.4050 ####[facility] [address] [place], [address] Glucose [Mass/Vol] 203 mg/dL High 70-99 [facility] Comment on above: Performed By: #### L 501.2300, L501.5200, L100.0100, L500.4050 ####[facility] [address] [place], [address] Potassium [Moles/Vol] 4.1 mmol/L Normal 3.3-5.1 [facility] Comment on above: Performed By: #### L 501.2300, L501.5200, L100.0100, L500.4050 ####[facility] [address] [place], [address] Sodium [Moles/Vol] 131 mmol/L Low 133-145 [facility] Comment on above: Performed By: #### L 501.2300, L501.5200, L100.0100, L500.4050 ####[facility] [address] [place], [address] T PROT 5.6 g/dL Low 5.9-8.4 [facility] Comment on above: Performed By: #### L 501.2300, L501.5200, L100.0100, L500.4050 ####[facility] [address] [place], [address] Urea nitrogen [Mass/Vol] 15 mg/dL Normal 4-19 [facility] Comment on above: Performed By: #### L 501.2300, L501.5200, L100.0100, L500.4050 ####[facility] [address] [place], [address] Eosinophil percentageOrdered By: Katie Bah on 02-22-2025 Eosinophils/100 WBC (Bld) 3.0 % 0-5 [facility] Erythrocyte distribution wid th ratioOrdered By: Katie Bah on 02-22-2025 Erythrocyte distribution width (RBC) [Ratio] 15.4 % High 11.6-14.6 [facility] Erythrocyte distribution wid th standard deviationOrdered By: Katie Bah on 02-22-2025 Erythrocyte distribution width (RBC) [Ratio] 49.5 fl High 35.1-43.9 [facility] Ferritinon 02-22-2025 Ferritin [Mass/Vol] 217 ng/mL Normal 22-378 [facility] Comment on above: Performed By: #### L 503.6030, L503.6550 ####[facility] [address] [place], [place], [address] Immature granulocytes/100 WB C Auto (Bld)Ordered By: Katie Kimjaquan on 02-22-2025 Immature granulocytes/100 WBC (Bld) 0.700 % 0.0-0.9 [facility] Comment on above: IG% - Immature Granu locytes (promyelocytes, myelocytes and metamyelocytes) > 1% indicates that a LEFT SHIFT is Present. Iron measurement (mass/mass) Ordered By: Katie Kimjaquan on 02-22-2025 Iron (Unsp spec) [Mass/Mass] 69 ug/dL 50-170 [facility] Iron+Iron Binding Capacityon 02-22-2025 TIBC 197 ug/dL Low 250-450 [facility] Comment on above: Performed By: #### L 503.6030, L503.6550 ####[facility] [address] [place], [place], [id number] Laboratory - Chemistry and C hemistry - challengeOrdered By: Katie Kimjaquan on 02-22-2025 AST [Catalytic activity/Vol] 31 U/L <32 [facility] MCV (mean corpuscular volume ) determinationOrdered By: Katie Kimjaquan on 02-22-2025 MCV (RBC) [Entitic vol] 89.3 fL 81-99 [facility] Magnesiumon 02-22-2025 Magnesium [Mass/Vol] 1.5 mg/dL Normal 1.5-2.2 [facility] Comment on above: Performed By: #### L 501.2300, L501.5200, L100.0100, L500.4050 ####[facility] [address] [place], [place], [address] Mean corpuscular hemoglobin (MCH) determinationOrdered By: Katie Bah on 02-22-2025 MCH (RBC) [Entitic mass] 31.5 pg 27.0-32.0 [facility] Mean corpuscular hemoglobin concentration (MCHC) determinationOrdered By: Katie Bah on 02-22-2025 MCHC (RBC) [Mass/Vol] 35.3 g/dL 32-36 [facility] Mean platelet volume determi nationOrdered By: Katie Bah on 02-22-2025 Platelet mean volume (Bld) [Entitic vol] 8.8 fL 6.2-12.0 [facility] Monocyte percentageOrdered B y: Katie Bah on 02-22-2025 Monocytes/100 WBC (Bld) 7.2 % 0-10 [facility] Neutrophil percentageOrdered By: Katie Bah on 02-22-2025 Neutrophils/100 WBC (Bld) 65.0 % 47-70 [facility] No Panel InformationOrdered By: Katie Bah on 02-22-2025 Unsaturated Iron Binding Capacity 128 ug/dL Low 228-428 [facility] Nucleated red blood cell per centageOrdered By: Katie Bah on 02-22-2025 Nucleated RBC/100 WBC (Bld) [Ratio] 0 % 0-5 [facility] Osmolality urOrdered By: Joya sultana Olvin on 02-22-2025 Osmolality (U) [Osmolality] 176 mOsm/KG >50 [facility] Comment on above: Normal Urine Referen ce Ranges Random: 50 - 1200 mOsm/kg H20 depending on fluid intake Random: >850 mOsm/kg after 12 hour fluid restriction 24 hour: ~300 - 900 mOsm/kg H2O Osmolality, Serumon 02-23-20 25 OSMOLALITY,SER 283 mOsm/KG Normal 280-301 [facility] Comment on above: Performed By: #### L 501.7300 ####[facility] [address] [place], [place], [address] Osmolality, Urineon 02-23-20 25 OSMOLALITY,UR 176 mOsm/KG Normal [facility] Comment on above: Result Comment: Norm al Urine Reference Ranges Random: 50 - 1200 mOsm/kg H20 depending on fluid intake Random: >850 mOsm/kg after 12 hour fluid restriction 24 hour: 300 - 900 mOsm/kg H2O Performed By: #### L 501.7400, L501.5500 ####[facility] [address] [place], [address] Phosphoruson 02-22-2025 Phosphate [Mass/Vol] 3.2 mg/dL Normal 2.7-4.5 [facility] Comment on above: Performed By: #### L 501.2300, L501.5200, L100.0100, L500.4050 ####[facility] [address] [place], [address] Platelet countOrdered By: Shahida Bah on 02-22-2025 Platelets (Bld) [#/Vol] 282 10*3/uL 150-450 [facility] RBC Auto (Bld) [#/Vol]Ordere d By: Katie Bah on 02-22-2025 RBC (Bld) [#/Vol] 2.70 10*6/uL Low 4.2-5.4 [facility] Serum globulin measurementOr dered By: Katie Bah on 02-22-2025 Globulin (S) [Mass/Vol] 3.0 g/dL 2.2-4.2 [facility] Serum or plasma alanine cornejo otransferase (ALT) measurementOrdered By: Katie Bah on 02-22-2025 ALT [Catalytic activity/Vol] U/L <35 [facility] Serum or plasma albumin sabino urement (mass/volume)Ordered By: Katie Bah on 02-22-2025 Albumin [Mass/Vol] 2.6 g/dL Low 3.4-4.8 [facility] Serum or plasma albumin/glob ulin mass ratioOrdered By: Katie Bah on 02-22-2025 Albumin/Globulin [Mass ratio] 0.9 {ratio} 0.9-2.4 [facility] Serum or plasma alkaline shaista sphatase measurementOrdered By: Katie Bah on 02-22-2025 ALP [Catalytic activity/Vol] 106 U/L High 35-104 [facility] Serum or plasma ferritin uzma surement (mass/volume)Ordered By: Katie Bah on 02-22-2025 Ferritin [Mass/Vol] 217 ng/mL 22-378 [facility] Serum or plasma iron saturat ion measurement (mass fraction)Ordered By: Katie Kimjaquan on 02-22-2025 Iron saturation [Mass fraction] 35.0 % 13-59 [facility] Stool Occult Blood iFOBon STOB Positive Normal [facility] Comment on above: Performed By: #### M 100.7900 ####[facility] [address] [place], [place], [id number] Stool gastrointestinal hemog lobin detection by immunologic methodOrdered By: Katie Kimjaquan on 02-22-2025 Lower GI hemoglobin IA Ql (Stl) Positive Abnormal [facility] Total proteinOrdered By: Joya Kimjaquan on 02-22-2025 Protein [Mass/Vol] 5.6 g/dL Low 5.9-8.4 [facility] Urinalysis, Completeon 02-22 Mucus Ql (Urine sed) 0 SEEN Normal [facility] Comment on above: Order Comment: CLEAN CATCH Performed By: #### L 400.0001 ####[facility] [address] [place], [address] Urine Sodiumon 02-22-2025 UR NA < 20 Normal Not Establ. [facility] Comment on above: Performed By: #### L 501.7400, L501.5500 ####[facility] [address] [place], [place], [id number] Urine sodium measurement (mo les/volume)Ordered By: Katie Kimjaquan on 02-22-2025 Sodium (U) [Moles/Vol] mmol/L Not Establ. [facility] White blood cell (WBC) count Ordered By: Katie Kimjaquan on 02-22-2025 WBC (Bld) [#/Vol] 8.2 10*3/uL 4.4-11.0 [facility] Bedside Glucoseon 02-21-2025 FINGERSTICK GLU 192 mg/dL High 74-106 [facility] Comment on above: Result Comment: MARINA GEMENT OF PATIENT CARE PER NURSING PROTOCOL Performed By: #### L 501.080 ####[facility] [address] [place], [address] FINGERSTICK GLU 242 mg/dL High [address] [place] [address] Comment on above: Result Comment: MARINA GEMENT OF PATIENT CARE PER NURSING PROTOCOL Performed By: #### L 501.080 ####[facility] [address] [place], [address] FINGERSTICK GLU 245 mg/dL High [address] [place] [address] Comment on above: Result Comment: MARINA GEMENT OF PATIENT CARE PER NURSING PROTOCOL Performed By: #### L 501.080 ####[facility] [address] [place], [address] FINGERSTICK GLU 212 mg/dL High [address] [place] [address] Comment on above: Result Comment: MARINA GEMENT OF PATIENT CARE PER NURSING PROTOCOL Performed By: #### L 501.080 ####[facility] [address] [place], [address] [facility] deOrdered By: Gia Owusu on 02-21-2025 Glucose [Mass/Vol] 245 mg/dL High -106 [facility] Comment on above: MANAGEMENT OF PATIEN T CARE PER NURSING PROTOCOL Hemoglobinon 02-21-2025 Hemoglobin (Bld) [Mass/Vol] 8.6 g/dL Low 12.0-15.0 [facility] Comment on above: Performed By: #### L 100.1300 ####[facility] [address] [place], [address] Hemoglobin measurementOrdere d By: Gia Owusu on 02-21-2025 Hemoglobin (Bld) [Mass/Vol] 8.6 g/dL Low 12.0-15.0 [facility] Bedside Glucoseon 02-20-2025 FINGERSTICK GLU 209 mg/dL High [address] [place] [address] Comment on above: Result Comment: MARINA GEMENT OF PATIENT CARE PER NURSING PROTOCOL Performed By: #### L 501.080 ####[facility] [address] [place], [address] FINGERSTICK GLU 180 mg/dL High 74-106 [facility] Comment on above: Result Comment: MARINA GEMENT OF PATIENT CARE PER NURSING PROTOCOL Performed By: #### L 501.080 ####[facility] [address] [place], [address] FINGERSTICK GLU 287 mg/dL High 74-106 [facility] Comment on above: Result Comment: MARINA GEMENT OF PATIENT CARE PER NURSING PROTOCOL Performed By: #### L 501.080 ####[facility] [address] [place], [address] FINGERSTICK GLU 161 mg/dL High 74-106 [facility] Comment on above: Result Comment: MARINA GEMENT OF PATIENT CARE PER NURSING PROTOCOL Performed By: #### L 501.080 ####[facility] [address] [place], [address] Hemoglobinon 02-20-2025 Hemoglobin (Bld) [Mass/Vol] 8.9 g/dL Low 12.0-15.0 [facility] Comment on above: Performed By: #### L 100.1300 ####[facility] [address] [place], [address] Hemoglobin (Bld) [Mass/Vol] 8.6 g/dL Low 12.0-15.0 [facility] Comment on above: Performed By: #### L 100.1300 ####[facility] [address] [place], [address] Anion gap in Serum or Plasma Ordered By: Gia Owusu on 02-19-2025 Anion gap [Moles/Vol] 10 mmol/L 5-15 [facility] BUN/creatinine ratioOrdered By: Gia Owusu on 02-19-2025 Urea nitrogen/Creatinine [Mass ratio] 23.4 mg/mg High 10-20 [facility] Basic Metabolic Profile (BMP )on 02-19-2025 BUN/CRE 23.4 RATIO High 10-20 [facility] Comment on above: Performed By: #### L 500.2500, L100.0500 ####[facility] [address] [place], [address] Calcium [Mass/Vol] 8.4 mg/dL Normal 7.6-11.0 [facility] Comment on above: Performed By: #### L 500.2500, L100.0500 ####[facility] [address] [place], [address] Chloride [Moles/Vol] 103 mmol/L Normal 98-108 [facility] Comment on above: Performed By: #### L 500.2500, L100.0500 ####[facility] [address] [place], [address] CO2 [Moles/Vol] 21.3 mmol/L Normal 21.0-32.0 [facility] Comment on above: Performed By: #### L 500.2500, L100.0500 ####[facility] [address] [place], [address] Creatinine [Mass/Vol] 0.51 mg/dL Low 0.70-1.20 [facility] Comment on above: Performed By: #### L 500.2500, L100.0500 ####[facility] [address] [place], [address] ECRCL 44.44 ml/min Low 50-250 [facility] Comment on above: Performed By: #### L 500.2500, L100.0500 ####[facility] [address] [place], [address] GAP 10 Normal 5-15 [facility] Comment on above: Performed By: #### L 500.2500, L100.0500 ####[facility] [address] [place], [address] GFR/1.73 sq M.predicted among non-blacks MDRD (S/P/Bld) [Vol rate/Area] 96 mL/min/{1.73_m2} Normal >60 [facility] Comment on above: Result Comment: mL/m in/1.73m2 CKD-EPI Creatinine Equation (2020) Performed By: #### L 500.2500, L100.0500 ####[facility] [address] [place], [address] Glucose [Mass/Vol] 165 mg/dL High 70-99 [facility] Comment on above: Performed By: #### L 500.2500, L100.0500 ####[facility] [address] [place], [address] Potassium [Moles/Vol] 3.7 mmol/L Normal 3.3-5.1 [facility] Comment on above: Result Comment: Hemo lysis present, Results??could be affected.?? Performed By: #### L 500.2500, L100.0500 ####[facility] [address] [place], [address] Sodium [Moles/Vol] 134 mmol/L Normal 133-145 [facility] Comment on above: Performed By: #### L 500.2500, L100.0500 ####[facility] [address] [place], [address] Urea nitrogen [Mass/Vol] 12 mg/dL Normal 4-19 [facility] Comment on above: Performed By: #### L 500.2500, L100.0500 ####[facility] [address] [place], [address] Bedside Glucoseon 02-19-2025 FINGERSTICK GLU 202 mg/dL High 74-106 [facility] Comment on above: Result Comment: MARINA FERNANDEZ OF PATIENT CARE PER NURSING PROTOCOL Performed By: #### L 501.080 ####[facility] [address] [place], [address] FINGERSTICK GLU 179 mg/dL High 74-106 [facility] Comment on above: Result Comment: MARINA GEMENT OF PATIENT CARE PER NURSING PROTOCOL Performed By: #### L 501.080 ####[facility] [address] [place], [address] FINGERSTICK GLU 276 mg/dL High 74-106 [facility] Comment on above: Result Comment: MARINA GEMENT OF PATIENT CARE PER NURSING PROTOCOL Performed By: #### L 501.080 ####[facility] [address] [place], [address] FINGERSTICK GLU 162 mg/dL High 74-106 [facility] Comment on above: Result Comment: MARINA GEMENT OF PATIENT CARE PER NURSING PROTOCOL Performed By: #### L 501.080 ####[facility] [address] [place], [address] CBC-Complete Blood Cnt No Di ffon 02-19-2025 Erythrocyte distribution width (RBC) [Ratio] 15.2 % High 11.6-14.6 [facility] Comment on above: Performed By: #### L 500.2500, L100.0500 ####[facility] [address] [place], [address] Hematocrit (Bld) [Volume fraction] 26.2 % Low 37-47 [facility] Comment on above: Performed By: #### L 500.2500, L100.0500 ####[facility] [address] [place], [address] Hemoglobin (Bld) [Mass/Vol] 9.1 g/dL Low 12.0-15.0 [facility] Comment on above: Performed By: #### L 500.2500, L100.0500 ####[facility] [address] [place], [address] MCH (RBC) [Entitic mass] 30.8 pg Normal 27.0-32.0 [facility] Comment on above: Performed By: #### L 500.2500, L100.0500 ####[facility] [address] [place], [address] MCHC (RBC) [Mass/Vol] 34.7 g/dL Normal 32-36 [facility] Comment on above: Performed By: #### L 500.2500, L100.0500 ####[facility] [address] [place], [address] MCV (RBC) [Entitic vol] 88.8 fL Normal 81-99 [facility] Comment on above: Performed By: #### L 500.2500, L100.0500 ####[facility] [address] [place], [address] Platelet mean volume (Bld) [Entitic vol] 9.6 fL Normal 6.2-12.0 [facility] Comment on above: Performed By: #### L 500.2500, L100.0500 ####[facility] [address] [place], [address] Platelets (Bld) [#/Vol] 262 10*3/uL Normal 150-450 [facility] Comment on above: Performed By: #### L 500.2500, L100.0500 ####[facility] [address] [place], [address] RBC (Bld) [#/Vol] 2.95 10*6/uL Low 4.2-5.4 [facility] Comment on above: Performed By: #### L 500.2500, L100.0500 ####[facility] [address] [place], [address] RDW SD 47.0 fl High 35.1-43.9 [facility] Comment on above: Performed By: #### L 500.2500, L100.0500 ####[facility] [address] [place], [address] WBC (Bld) [#/Vol] 10.0 10*3/uL Normal 4.4-11.0 [facility] Comment on above: Performed By: #### L 500.2500, L100.0500 ####[facility] [address] [place], [address] Carbon dioxide, total [Moles /volume] in Central venous bloodOrdered By: Gia Owusu on 02-19-2025 CO2 [Moles/Vol] 21.3 mmol/L 21.0-32.0 [facility] Chloride assayOrdered By: Ahsan Owusu on 02-19-2025 Chloride [Moles/Vol] 103 mmol/L 98-108 [facility] Erythrocyte distribution wid th ratioOrdered By: Gia Owusu on 02-19-2025 Erythrocyte distribution width (RBC) [Ratio] 15.2 % High 11.6-14.6 [facility] Erythrocyte distribution wid th standard deviationOrdered By: Gia Owusu on 02-19-2025 Erythrocyte distribution width (RBC) [Ratio] 47.0 fl High 35.1-43.9 [facility] Glomerular filtration rate ( GFR) estimation/1.73 sq m using serum, plasma, or whole bOrdered By: Gia Owusu on 02-19-2025 GFR/1.73 sq M.predicted among non-blacks MDRD (S/P/Bld) [Vol rate/Area] 96 mL/min/{1.73_m2} >60 [facility] Comment on above: mL/min/1.73m2 CKD-EP I Creatinine Equation (2020) Hematocrit Auto (Bld) [Volum e fraction]Ordered By: Gia Owusu on 02-19-2025 Hematocrit (Bld) [Volume fraction] 26.2 % Low 37-47 [facility] MCV (mean corpuscular volume ) determinationOrdered By: Gia Owusu on 02-19-2025 MCV (RBC) [Entitic vol] 88.8 fL 81-99 [facility] MR/[id number] 02-19-2025 MR/POSTOPAN2 Normal [facility] Mean corpuscular hemoglobin (MCH) determinationOrdered By: Gia Owusu on 02-19-2025 MCH (RBC) [Entitic mass] 30.8 pg 27.0-32.0 [facility] Mean corpuscular hemoglobin concentration (MCHC) determinationOrdered By: Gia Owusu on 02-19-2025 MCHC (RBC) [Mass/Vol] 34.7 g/dL 32-36 [facility] Mean platelet volume determi nationOrdered By: Gia Owusu on 02-19-2025 Platelet mean volume (Bld) [Entitic vol] 9.6 fL 6.2-12.0 [facility] Platelet countOrdered By: Ahsan Owusu on 02-19-2025 Platelets (Bld) [#/Vol] 262 10*3/uL 150-450 [facility] Potassium measurement (mass/ volume)Ordered By: Gia Owusu on 02-19-2025 Potassium (Unsp spec) [Mass/Vol] 3.7 mmol/L 3.3-5.1 [facility] Comment on above: Hemolysis present, R esults could be affected. RBC Auto (Bld) [#/Vol]Ordere d By: Gia Owusu on 02-19-2025 RBC (Bld) [#/Vol] 2.95 10*6/uL Low 4.2-5.4 [facility] Serum creatinine measurement (mass/volume)Ordered By: Gia Owusu on 02-19-2025 Creatinine [Mass/Vol] 0.51 mg/dL Low 0.70-1.20 [facility] Serum glucose measurement (m ass/volume)Ordered By: Gia Owusu on 02-19-2025 Glucose [Mass/Vol] 165 mg/dL High 70-99 [facility] Serum or plasma calcium sabino urement (mass/volume)Ordered By: Gia Owusu on 02-19-2025 Calcium [Mass/Vol] 8.4 mg/dL 7.6-11.0 [facility] Serum or plasma urea nitroge n measurement (mass/volume)Ordered By: Gia Owusu on 02-19-2025 Urea nitrogen [Mass/Vol] 12 mg/dL 4-19 [facility] Sodium levelOrdered By: Delmy Owusu on 02-19-2025 Sodium [Moles/Vol] 134 mmol/L 133-145 [facility] White blood cell (WBC) count Ordered By: Gia Owusu on 02-19-2025 WBC (Bld) [#/Vol] 10.0 10*3/uL 4.4-11.0 [facility] Absolute lymphocyte countOrd ered By: Gia Owusu on 02-18-2025 Lymphocytes Auto (Unsp spec) [#/Vol] 2.07 10*3/uL 0.83-4.51 [facility] Absolute neutrophil countOrd ered By: Gia Owusu on 02-18-2025 Neutrophils (Bld) [#/Vol] 5.8 10*3/uL 2.0-7.7 [facility] Automated lymphocyte count a s percentage of total leukocytesOrdered By: Gia Owusu on 02-18-2025 Lymphocytes/100 WBC Auto (Unsp spec) 22.6 % 19-41 [facility] Basophil percentageOrdered B y: Gia Owusu on 02-18-2025 Basophils/100 WBC (Bld) 0.4 % 0-1 [facility] Bedside Glucoseon 02-18-2025 FINGERSTICK GLU 196 mg/dL High 74-106 [facility] Comment on above: Result Comment: MARINA GEMENT OF PATIENT CARE PER NURSING PROTOCOL Performed By: #### L 501.080 ####[facility] [address] [facility] [address] FINGERSTICK GLU 187 mg/dL High [address] [place] [address] Comment on above: Result Comment: MARINA GEMENT OF PATIENT CARE PER NURSING PROTOCOL Performed By: #### L 501.080 ####[facility] [address] [place], [address] FINGERSTICK GLU 285 mg/dL High [address] [place] [address] Comment on above: Result Comment: MARINA GEMENT OF PATIENT CARE PER NURSING PROTOCOL Performed By: #### L 501.080 ####[facility] [address] [place], [address] FINGERSTICK GLU 188 mg/dL High 74-106 [facility] Comment on above: Result Comment: MARINA FERNANDEZ OF PATIENT CARE PER NURSING PROTOCOL Performed By: #### L 501.080 ####[facility] [address] [place], [address] CBC W/Diff, Automatedon 01-22 Absolute Lymph 2.07 X10 3/uL Normal 0.83-4.51 [facility] Comment on above: Performed By: #### L 100.0100 ####[facility] [address] [place], [address] Absolute Neut 5.8 X10 3/uL Normal 2.0-7.7 [facility] Comment on above: Performed By: #### L 100.0100 ####[facility] [address] [place], [address] Basophils/100 WBC (Bld) 0.4 % Normal 0-1 [facility] Comment on above: Performed By: #### L 100.0100 ####[facility] [address] [place], [address] Eosinophils/100 WBC (Bld) 2.4 % Normal 0-5 [facility] Comment on above: Performed By: #### L 100.0100 ####[facility] [address] [place], [address] Erythrocyte distribution width (RBC) [Ratio] 15.3 % High 11.6-14.6 [facility] Comment on above: Performed By: #### L 100.0100 ####[facility] [address] [place], [address] Hematocrit (Bld) [Volume fraction] 26.8 % Low 37-47 [facility] Comment on above: Performed By: #### L 100.0100 ####[facility] [address] [place], [address] Hemoglobin (Bld) [Mass/Vol] 9.6 g/dL Low 12.0-15.0 [facility] Comment on above: Performed By: #### L 100.0100 ####[facility] [address] [place], [address] IG% 0.500 Normal 0.0-0.9 [facility] Comment on above: Result Comment: IG% - Immature Granulocytes (promyelocytes, myelocytes andmetamyelocytes) > 1% indicates that a LEFT SHIFT is Present. Performed By: #### L 100.0100 ####[facility] [address] [place], [address] Lymphocytes/100 WBC (Bld) 22.6 % Normal 19-41 [facility] Comment on above: Performed By: #### L 100.0100 ####[facility] [address] [place], [address] MCH (RBC) [Entitic mass] 31.1 pg Normal 27.0-32.0 [facility] Comment on above: Performed By: #### L 100.0100 ####[facility] [address] [place], [address] MCHC (RBC) [Mass/Vol] 35.8 g/dL Normal 32-36 [facility] Comment on above: Performed By: #### L 100.0100 ####[facility] [address] [place], [address] MCV (RBC) [Entitic vol] 86.7 fL Normal 81-99 [facility] Comment on above: Performed By: #### L 100.0100 ####[facility] [address] [place], [address] Monocytes/100 WBC (Bld) 10.4 % High 0-10 [facility] Comment on above: Performed By: #### L 100.0100 ####[facility] [address] [place], [address] Neutrophils/100 WBC (Bld) 63.7 % Normal 47-70 [facility] Comment on above: Performed By: #### L 100.0100 ####[facility] [address] [place], [address] Nucleated RBC (Bld) [#/Vol] 0 10*3/uL Normal 0-5 [facility] Comment on above: Performed By: #### L 100.0100 ####[facility] [address] [place], [address] Platelet mean volume (Bld) [Entitic vol] 9.4 fL Normal 6.2-12.0 [facility] Comment on above: Performed By: #### L 100.0100 ####[facility] [address] [place], [address] Platelets (Bld) [#/Vol] 247 10*3/uL Normal 150-450 [facility] Comment on above: Performed By: #### L 100.0100 ####[facility] [address] [place], [address] RBC (Bld) [#/Vol] 3.09 10*6/uL Low 4.2-5.4 [facility] Comment on above: Performed By: #### L 100.0100 ####[facility] [address] [place], [address] RDW SD 45.9 fl High 35.1-43.9 [facility] Comment on above: Performed By: #### L 100.0100 ####[facility] [address] [place], [address] WBC (Bld) [#/Vol] 9.2 10*3/uL Normal 4.4-11.0 [facility] Comment on above: Performed By: #### L 100.0100 ####[facility] [address] [place], [address] Eosinophil percentageOrdered By: Gia Owusu on 02-18-2025 Eosinophils/100 WBC (Bld) 2.4 % 0-5 [facility] Immature granulocytes/100 WB C Auto (Bld)Ordered By: Gia Owusu on 02-18-2025 Immature granulocytes/100 WBC (Bld) 0.500 % 0.0-0.9 [facility] Comment on above: IG% - Immature Granu locytes (promyelocytes, myelocytes and metamyelocytes) > 1% indicates that a LEFT SHIFT is Present. Monocyte percentageOrdered B y: Gia Owusu on 02-18-2025 Monocytes/100 WBC (Bld) 10.4 % High 0-10 [facility] Neutrophil percentageOrdered By: Gia Owusu on 02-18-2025 Neutrophils/100 WBC (Bld) 63.7 % 47-70 [facility] Nucleated red blood cell per centageOrdered By: Gia Owusu on 02-18-2025 Nucleated RBC/100 WBC (Bld) [Ratio] 0 % 0-5 [facility] Basic Metabolic Profile (BMP )on 02-17-2025 BUN/CRE 28.5 RATIO High 10-20 [facility] Comment on above: Performed By: #### L 100.0100, L500.2500 ####[facility] [address] [place], [address] Calcium [Mass/Vol] 8.3 mg/dL Normal 7.6-11.0 [facility] Comment on above: Performed By: #### L 100.0100, L500.2500 ####[facility] [address] [place], [address] Chloride [Moles/Vol] 105 mmol/L Normal 98-108 [facility] Comment on above: Performed By: #### L 100.0100, L500.2500 ####[facility] [address] [place], [address] CO2 [Moles/Vol] 20.2 mmol/L Low 21.0-32.0 [facility] Comment on above: Performed By: #### L 100.0100, L500.2500 ####[facility] [address] [place], [address] Creatinine [Mass/Vol] 0.61 mg/dL Low 0.70-1.20 [facility] Comment on above: Performed By: #### L 100.0100, L500.2500 ####[facility] [address] [place], [address] ECRCL 44.44 ml/min Low 50-250 [facility] Comment on above: Performed By: #### L 100.0100, L500.2500 ####[facility] [address] [place], [address] GAP 11 Normal 5-15 [facility] Comment on above: Performed By: #### L 100.0100, L500.2500 ####[facility] [address] [place], [address] GFR/1.73 sq M.predicted among non-blacks MDRD (S/P/Bld) [Vol rate/Area] 92 mL/min/{1.73_m2} Normal >60 [facility] Comment on above: Result Comment: mL/m in/1.73m2 CKD-EPI Creatinine Equation (2020) Performed By: #### L 100.0100, L500.2500 ####[facility] [address] [place], [address] Glucose [Mass/Vol] 157 mg/dL High 70-99 [facility] Comment on above: Performed By: #### L 100.0100, L500.2500 ####[facility] [address] [place], [address] Potassium [Moles/Vol] 4.0 mmol/L Normal 3.3-5.1 [facility] Comment on above: Performed By: #### L 100.0100, L500.2500 ####[facility] [address] [place], [address] Sodium [Moles/Vol] 136 mmol/L Normal 133-145 [facility] Comment on above: Performed By: #### L 100.0100, L500.2500 ####[facility] [address] [place], [address] Urea nitrogen [Mass/Vol] 17 mg/dL Normal 4-19 [facility] Comment on above: Performed By: #### L 100.0100, L500.2500 ####[facility] [address] [place], [address] Bedside Glucoseon 02-17-2025 FINGERSTICK GLU 246 mg/dL High 74-106 [facility] Comment on above: Result Comment: MARINA GEMENT OF PATIENT CARE PER NURSING PROTOCOL Performed By: #### L 501.080 ####[facility] [address] [place], [address] FINGERSTICK GLU 192 mg/dL High 74-106 [facility] Comment on above: Result Comment: MARINA GEMENT OF PATIENT CARE PER NURSING PROTOCOL Performed By: #### L 501.080 ####[facility] [address] [place], [address] FINGERSTICK GLU 238 mg/dL High 74-106 [facility] Comment on above: Result Comment: MARINA GEMENT OF PATIENT CARE PER NURSING PROTOCOL Performed By: #### L 501.080 ####[facility] [address] [place], [address] FINGERSTICK GLU 159 mg/dL High 74-106 [facility] Comment on above: Result Comment: MARINA GEMENT OF PATIENT CARE PER NURSING PROTOCOL Performed By: #### L 501.080 ####[facility] [address] [place], [address] CBC W/Diff, Automatedon -2 Absolute Lymph 2.20 X10 3/uL Normal 0.83-4.51 [facility] Comment on above: Performed By: #### L 100.0100, L500.2500 ####[facility] [address] [place], [address] Absolute Neut 6.7 X10 3/uL Normal 2.0-7.7 [facility] Comment on above: Performed By: #### L 100.0100, L500.2500 ####[facility] [address] [place], [address] Basophils/100 WBC (Bld) 0.2 % Normal 0-1 [facility] Comment on above: Performed By: #### L 100.0100, L500.2500 ####[facility] [address] [place], [address] Eosinophils/100 WBC (Bld) 0.3 % Normal 0-5 [facility] Comment on above: Performed By: #### L 100.0100, L500.2500 ####[facility] [address] [place], [address] Erythrocyte distribution width (RBC) [Ratio] 14.6 % Normal 11.6-14.6 [facility] Comment on above: Performed By: #### L 100.0100, L500.2500 ####[facility] [address] [place], [address] Hematocrit (Bld) [Volume fraction] 27.0 % Low 37-47 [facility] Comment on above: Performed By: #### L 100.0100, L500.2500 ####[facility] [address] [place], [address] Hemoglobin (Bld) [Mass/Vol] 9.9 g/dL Low 12.0-15.0 [facility] Comment on above: Performed By: #### L 100.0100, L500.2500 ####[facility] [address] [place], [address] IG% 0.600 Normal 0.0-0.9 [facility] Comment on above: Result Comment: IG% - Immature Granulocytes (promyelocytes, myelocytes andmetamyelocytes) > 1% indicates that a LEFT SHIFT is Present. Performed By: #### L 100.0100, L500.2500 ####[facility] [address] [place], [address] Lymphocytes/100 WBC (Bld) 22.0 % Normal 19-41 [facility] Comment on above: Performed By: #### L 100.0100, L500.2500 ####[facility] [address] [place], [address] MCH (RBC) [Entitic mass] 31.2 pg Normal 27.0-32.0 [facility] Comment on above: Performed By: #### L 100.0100, L500.2500 ####[facility] [address] [place], [address] MCHC (RBC) [Mass/Vol] 36.7 g/dL High 32-36 [facility] Comment on above: Performed By: #### L 100.0100, L500.2500 ####[facility] [address] [place], [address] MCV (RBC) [Entitic vol] 85.2 fL Normal 81-99 [facility] Comment on above: Performed By: #### L 100.0100, L500.2500 ####[facility] [address] [place], [address] Monocytes/100 WBC (Bld) 10.3 % High 0-10 [facility] Comment on above: Performed By: #### L 100.0100, L500.2500 ####[facility] [address] [place], [address] Neutrophils/100 WBC (Bld) 66.6 % Normal 47-70 [facility] Comment on above: Performed By: #### L 100.0100, L500.2500 ####[facility] [address] [place], [address] Nucleated RBC (Bld) [#/Vol] 0 10*3/uL Normal 0-5 [facility] Comment on above: Performed By: #### L 100.0100, L500.2500 ####[facility] [address] [place], [address] Platelet mean volume (Bld) [Entitic vol] 9.4 fL Normal 6.2-12.0 [facility] Comment on above: Performed By: #### L 100.0100, L500.2500 ####[facility] [address] [place], [address] Platelets (Bld) [#/Vol] 247 10*3/uL Normal 150-450 [facility] Comment on above: Performed By: #### L 100.0100, L500.2500 ####[facility] [address] [place], [address] RBC (Bld) [#/Vol] 3.17 10*6/uL Low 4.2-5.4 [facility] Comment on above: Performed By: #### L 100.0100, L500.2500 ####[facility] [address] [place], [address] RDW SD 44.0 fl High 35.1-43.9 [facility] Comment on above: Performed By: #### L 100.0100, L500.2500 ####[facility] [address] [place], [address] WBC (Bld) [#/Vol] 10.0 10*3/uL Normal 4.4-11.0 [facility] Comment on above: Performed By: #### L 100.0100, L500.2500 ####[facility] [address] [place], [address] Haptoglobinon 02-17-2025 HAPTOGLOBIN 91 mg/dL Normal 42-346 [facility] Comment on above: Result Comment: Perf ormed at: - [facility] [address] [place], [place] [id number] Director: Danielito العلي PhD, Phone: [phone] Performed By: #### L 3100.8695, L504.6380, O952.3700 ####[facility] [address] [place], [address] Activated partial thrombopla stin time (aPTT) in platelet poor plasma by coagulation aOrdered By: Bi Zaman on 02-16-2025 aPTT Coag (PPP) [Time] 31.5 s 24.1-36.2 [facility] Bedside Glucoseon 02-16-2025 FINGERSTICK GLU 250 mg/dL High 74-106 [facility] Comment on above: Result Comment: MARINA GEMENT OF PATIENT CARE PER NURSING PROTOCOL Performed By: #### L 501.080 ####[facility] [address] [place], [address] FINGERSTICK GLU 245 mg/dL High 74-106 [facility] Comment on above: Result Comment: MARINA GEMENT OF PATIENT CARE PER NURSING PROTOCOL Performed By: #### L 501.080 ####[facility] [address] [place], [address] FINGERSTICK GLU 151 mg/dL High 74-106 [facility] Comment on above: Result Comment: MARINA GEMENT OF PATIENT CARE PER NURSING PROTOCOL Performed By: #### L 501.080 ####[facility] [address] [place], [address] Bilirubin, totalOrdered By: Lakeshia Mas on 02-16-2025 Bilirubin [Mass/Vol] 1.96 mg/dL High 0.00-1.30 [facility] CBC W/Diff, Automatedon 01-22 Absolute Lymph 2.62 X10 3/uL Normal 0.83-4.51 [facility] Comment on above: Performed By: #### L 300.4310, L100.0100, L501.9520, L501.9985, L500.4050, L300.3900 ####[facility] [address] [place], [address] Absolute Neut 5.8 X10 3/uL Normal 2.0-7.7 [facility] Comment on above: Performed By: #### L 300.4310, L100.0100, L501.9520, L501.9985, L500.4050, L300.3900 ####[facility] [address] [place], [address] Basophils/100 WBC (Bld) 0.5 % Normal 0-1 [facility] Comment on above: Performed By: #### L 300.4310, L100.0100, L501.9520, L501.9985, L500.4050, L300.3900 ####[facility] [address] [place], [address] Eosinophils/100 WBC (Bld) 1.9 % Normal 0-5 [facility] Comment on above: Performed By: #### L 300.4310, L100.0100, L501.9520, L501.9985, L500.4050, L300.3900 ####[facility] [address] [place], [address] Erythrocyte distribution width (RBC) [Ratio] 14.4 % Normal 11.6-14.6 [facility] Comment on above: Performed By: #### L 300.4310, L100.0100, L501.9520, L501.9985, L500.4050, L300.3900 ####[facility] [address] [place], [address] Hematocrit (Bld) [Volume fraction] 24.1 % Low 37-47 [facility] Comment on above: Performed By: #### L 300.4310, L100.0100, L501.9520, L501.9985, L500.4050, L300.3900 ####[facility] [address] [place], [address] Hemoglobin (Bld) [Mass/Vol] 8.7 g/dL Low 12.0-15.0 [facility] Comment on above: Performed By: #### L 300.4310, L100.0100, L501.9520, L501.9985, L500.4050, L300.3900 ####[facility] [address] [place], [address] IG% 0.400 Normal 0.0-0.9 [facility] Comment on above: Result Comment: IG% - Immature Granulocytes (promyelocytes, myelocytes andmetamyelocytes) > 1% indicates that a LEFT SHIFT is Present. Performed By: #### L 300.4310, L100.0100, L501.9520, L501.9985, L500.4050, L300.3900 ####[facility] [address] [place], [address] Lymphocytes/100 WBC (Bld) 27.3 % Normal 19-41 [facility] Comment on above: Performed By: #### L 300.4310, L100.0100, L501.9520, L501.9985, L500.4050, L300.3900 ####[facility] [address] [place], [address] MCH (RBC) [Entitic mass] 32.1 pg High 27.0-32.0 [facility] Comment on above: Performed By: #### L 300.4310, L100.0100, L501.9520, L501.9985, L500.4050, L300.3900 ####[facility] [address] [place], [address] MCHC (RBC) [Mass/Vol] 36.1 g/dL High 32-36 [facility] Comment on above: Performed By: #### L 300.4310, L100.0100, L501.9520, L501.9985, L500.4050, L300.3900 ####[facility] [address] [place], [address] MCV (RBC) [Entitic vol] 88.9 fL Normal 81-99 [facility] Comment on above: Performed By: #### L 300.4310, L100.0100, L501.9520, L501.9985, L500.4050, L300.3900 ####[facility] [address] [place], [address] Monocytes/100 WBC (Bld) 9.3 % Normal 0-10 [facility] Comment on above: Performed By: #### L 300.4310, L100.0100, L501.9520, L501.9985, L500.4050, L300.3900 ####[facility] [address] [place], [address] Neutrophils/100 WBC (Bld) 60.6 % Normal 47-70 [facility] Comment on above: Performed By: #### L 300.4310, L100.0100, L501.9520, L501.9985, L500.4050, L300.3900 ####[facility] [address] [place], [address] Nucleated RBC (Bld) [#/Vol] 0 10*3/uL Normal 0-5 [facility] Comment on above: Performed By: #### L 300.4310, L100.0100, L501.9520, L501.9985, L500.4050, L300.3900 ####[facility] [address] [place], [address] Platelet mean volume (Bld) [Entitic vol] 9.5 fL Normal 6.2-12.0 [facility] Comment on above: Performed By: #### L 300.4310, L100.0100, L501.9520, L501.9985, L500.4050, L300.3900 ####[facility] [address] [place], [address] Platelets (Bld) [#/Vol] 297 10*3/uL Normal 150-450 [facility] Comment on above: Performed By: #### L 300.4310, L100.0100, L501.9520, L501.9985, L500.4050, L300.3900 ####[facility] [address] [place], [address] RBC (Bld) [#/Vol] 2.71 10*6/uL Low 4.2-5.4 [facility] Comment on above: Performed By: #### L 300.4310, L100.0100, L501.9520, L501.9985, L500.4050, L300.3900 ####[facility] [address] [place], [address] RDW SD 43.8 fl Normal 35.1-43.9 [facility] Comment on above: Performed By: #### L 300.4310, L100.0100, L501.9520, L501.9985, L500.4050, L300.3900 ####[facility] [address] [place], [address] WBC (Bld) [#/Vol] 9.6 10*3/uL Normal 4.4-11.0 [facility] Comment on above: Performed By: #### L 300.4310, L100.0100, L501.9520, L501.9985, L500.4050, L300.3900 ####[facility] [address] [place], [address] Comprehensive Metabolic Prof ilon 02-16-2025 Albumin [Mass/Vol] 3.0 g/dL Low 3.4-4.8 [facility] Comment on above: Performed By: #### L 300.4310, L100.0100, L501.9520, L501.9985, L500.4050, L300.3900 ####[facility] [address] [place], [address] Albumin/Globulin [Mass ratio] 0.8 {ratio} Low 0.9-2.4 [facility] Comment on above: Performed By: #### L 300.4310, L100.0100, L501.9520, L501.9985, L500.4050, L300.3900 ####[facility] [address] [place], [address] ALK PHOS 89 U/L Normal 35-104 [facility] Comment on above: Performed By: #### L 300.4310, L100.0100, L501.9520, L501.9985, L500.4050, L300.3900 ####[facility] [address] [place], [address] ALT [Catalytic activity/Vol] U/L Normal <=34 [facility] Comment on above: Performed By: #### L 300.4310, L100.0100, L501.9520, L501.9985, L500.4050, L300.3900 ####[facility] [address] [place], [address] AST [Catalytic activity/Vol] 34 U/L High <=31 [facility] Comment on above: Performed By: #### L 300.4310, L100.0100, L501.9520, L501.9985, L500.4050, L300.3900 ####[facility] [address] [place], [address] Bilirubin [Mass/Vol] 1.96 mg/dL High 0.00-1.30 [facility] Comment on above: Performed By: #### L 300.4310, L100.0100, L501.9520, L501.9985, L500.4050, L300.3900 ####[facility] [address] [place], [address] BUN/CRE 28.4 RATIO High 10-20 [facility] Comment on above: Performed By: #### L 300.4310, L100.0100, L501.9520, L501.9985, L500.4050, L300.3900 ####[facility] [address] [place], [address] Calcium [Mass/Vol] 8.9 mg/dL Normal 7.6-11.0 [facility] Comment on above: Performed By: #### L 300.4310, L100.0100, L501.9520, L501.9985, L500.4050, L300.3900 ####[facility] [address] [place], [address] Chloride [Moles/Vol] 102 mmol/L Normal 98-108 [facility] Comment on above: Performed By: #### L 300.4310, L100.0100, L501.9520, L501.9985, L500.4050, L300.3900 ####[facility] [address] [place], [address] CO2 [Moles/Vol] 19.9 mmol/L Low 21.0-32.0 [facility] Comment on above: Performed By: #### L 300.4310, L100.0100, L501.9520, L501.9985, L500.4050, L300.3900 ####[facility] [address] [place], [address] Creatinine [Mass/Vol] 0.77 mg/dL Normal 0.70-1.20 [facility] Comment on above: Performed By: #### L 300.4310, L100.0100, L501.9520, L501.9985, L500.4050, L300.3900 ####[facility] [address] [place], [address] ECRCL 44.44 ml/min Low 50-250 [facility] Comment on above: Performed By: #### L 300.4310, L100.0100, L501.9520, L501.9985, L500.4050, L300.3900 ####[facility] [address] [place], [address] GAP 12 Normal 5-15 [facility] Comment on above: Performed By: #### L 300.4310, L100.0100, L501.9520, L501.9985, L500.4050, L300.3900 ####[facility] [address] [place], [address] GFR/1.73 sq M.predicted among non-blacks MDRD (S/P/Bld) [Vol rate/Area] 80 mL/min/{1.73_m2} Normal >60 [facility] Comment on above: Result Comment: mL/m in/1.73m2 CKD-EPI Creatinine Equation (2020) Performed By: #### L 300.4310, L100.0100, L501.9520, L501.9985, L500.4050, L300.3900 ####[facility] [address] [place], [address] Globulin (S) [Mass/Vol] 3.6 g/dL Normal 2.2-4.2 [facility] Comment on above: Performed By: #### L 300.4310, L100.0100, L501.9520, L501.9985, L500.4050, L300.3900 ####[facility] [address] [place], [address] Glucose [Mass/Vol] 155 mg/dL High 70-99 [facility] Comment on above: Performed By: #### L 300.4310, L100.0100, L501.9520, L501.9985, L500.4050, L300.3900 ####[facility] [address] [place], [address] Potassium [Moles/Vol] 3.6 mmol/L Normal 3.3-5.1 [facility] Comment on above: Performed By: #### L 300.4310, L100.0100, L501.9520, L501.9985, L500.4050, L300.3900 ####[facility] [address] [place], [address] Sodium [Moles/Vol] 133 mmol/L Normal 133-145 [facility] Comment on above: Performed By: #### L 300.4310, L100.0100, L501.9520, L501.9985, L500.4050, L300.3900 ####[facility] [address] [place], [address] T PROT 6.6 g/dL Normal 5.9-8.4 [facility] Comment on above: Performed By: #### L 300.4310, L100.0100, L501.9520, L501.9985, L500.4050, L300.3900 ####[facility] [address] [place], [address] Urea nitrogen [Mass/Vol] 22 mg/dL High 4-19 [facility] Comment on above: Performed By: #### L 300.4310, L100.0100, L501.9520, L501.9985, L500.4050, L300.3900 ####[facility] [address] [place], [address] Consultation - Orthopedicson 02-16-2025 Consultation - Orthopedics Normal [facility] Hemoglobin A1con 02-16-2025 HbA1c (Bld) [Mass fraction] 7.3 % High <=5.6 [facility] Comment on above: Result Comment: Norm al < 5.7 % Prediabetic 5.7 - 6.4 % Diabetic >or= 6.5 % Please note range changes. Performed By: #### L 300.4310, L100.0100, L501.9520, L501.9985, L500.4050, L300.3900 ####[facility] [address] [place], [address] Hemoglobin A1c percentageOrd ered By: Lakeshia Mas on 02-16-2025 HbA1c (Bld) [Mass fraction] 7.3 % High <5.7 [facility] Comment on above: Normal < 5.7 % Predi abetic 5.7 - 6.4 % Diabetic >or= 6.5 % Please note range changes. Hip Min 2 Views (Portable)on 02-16-2025 Hip Min 2 Views (Portable) Normal [facility] International normalized rat io (INR) calculationOrdered By: Lakeshia Mas on 02-16-2025 INR Coag (Bld) [Relative time] 1.1 {INR} [facility] Laboratory - Chemistry and C hemistry - challengeOrdered By: Lakeshia Mas on 02-16-2025 AST [Catalytic activity/Vol] 34 U/L High <32 [facility] MR/POSTOP.ANEon 02-16-2025 MR/POSTOP.ANE Normal [facility] O.R. Fluoro for C-Panfilo 06- O.R. Fluoro for C-Arm Normal [facility] Operative Reporton Operative Report Normal [facility] Partial Thromboplast Timeon 02-16-2025 aPTT Coag (Bld) [Time] 31.5 s Normal 24.1-36.2 [facility] Comment on above: Performed By: #### L 300.4310, L100.0100, L501.9520, L501.9985, L500.4050, L300.3900 ####[facility] [address] [place], [address] Prothrombin Time w/INRon INR Coag (PPP) [Relative time] 1.1 {INR} Normal [facility] Comment on above: Performed By: #### L 300.4310, L100.0100, L501.9520, L501.9985, L500.4050, L300.3900 ####[facility] [address] [place], [address] PT Coag (PPP) [Time] 14.6 s Normal 11.7-14.9 [facility] Comment on above: Performed By: #### L 300.4310, L100.0100, L501.9520, L501.9985, L500.4050, L300.3900 ####[facility] [address] [place], [address] Prothrombin timeOrdered By: Lakeshia Mas on 02-16-2025 PT Coag (PPP) [Time] 14.6 s 11.7-14.9 [facility] Serum globulin measurementOr dered By: Lakeshia Mas on 02-16-2025 Globulin (S) [Mass/Vol] 3.6 g/dL 2.2-4.2 [facility] Serum or plasma alanine cornejo otransferase (ALT) measurementOrdered By: Lakeshia Mas on 02-16-2025 ALT [Catalytic activity/Vol] U/L <35 [facility] Serum or plasma albumin sabino urement (mass/volume)Ordered By: Lakeshia Mas on 02-16-2025 Albumin [Mass/Vol] 3.0 g/dL Low 3.4-4.8 [facility] Serum or plasma albumin/glob ulin mass ratioOrdered By: Lakeshia Mas on 02-16-2025 Albumin/Globulin [Mass ratio] 0.8 {ratio} Low 0.9-2.4 [facility] Serum or plasma alkaline shaista sphatase measurementOrdered By: Lakeshia Mas on 02-16-2025 ALP [Catalytic activity/Vol] 89 U/L 35-104 [facility] T4 Free Directon 02-16-2025 T4 FREE DIRECT 1.10 ng/dL Normal 0.76-1.46 [facility] Comment on above: Performed By: #### L 506.0400, L506.1001 ####[facility] [address] [place], [address] T4 freeOrdered By: Baldev reza on 02-16-2025 Free T4 [Mass/Vol] 1.10 ng/dL 0.76-1.46 [facility] TSH DL <= 0.005 mIU/L QnOrde red By: Lakeshia Mas on 02-16-2025 TSH Qn 7.490 uIU/mL High 0.300-4.200 [facility] Thyroid Stim Hormone (TSH)on 02-16-2025 TSH 7.490 uIU/mL High 0.300-4.200 [facility] Comment on above: Performed By: #### L 300.4310, L100.0100, L501.9520, L501.9985, L500.4050, L300.3900 ####[facility] [address] [place], [address] Total proteinOrdered By: Stephan Mas on 02-16-2025 Protein [Mass/Vol] 6.6 g/dL 5.9-8.4 [facility] Type AND Screenon 02-16-2025 ABO and Rh group Nom (Bld) Blood group O Rh(D) positive Normal [facility] Comment on above: Order Comment: S Performed By: #### B TS ####[facility] [address] [place], [id number] Vitamin D,25 Hydroxyon 02-16 Vitamin D 25-OH 10.7 ng/mL Low 30-100 [facility] Comment on above: Result Comment: Jojo min D StatusDeficiency: <20 ng/mL (50nmol/L)Insufficiency: 20-30 ng/mL (50-75 nmol/L)Sufficiency: 30-100 ng/mL (75-250 nmol/L)Toxicity: >100 ng/mL (>250 nmol/L) Performed By: #### L 506.0400, L506.1001 ####[facility] [address] [place], [place], [address] Absolute lymphocyte countOrd ered By: Abdirashid Cano on 02-15-2025 Lymphocytes Auto (Unsp spec) [#/Vol] 3.52 10*3/uL 0.83-4.51 [facility] Absolute neutrophil countOrd ered By: Abdirashid Cano on 02-15-2025 Neutrophils (Bld) [#/Vol] 4.6 10*3/uL 2.0-7.7 [facility] Anion gap in Serum or Plasma Ordered By: Abdirashid Cano on 02-15-2025 Anion gap [Moles/Vol] 15 mmol/L 5-15 [facility] Automated lymphocyte count a s percentage of total leukocytesOrdered By: Abdirashid Cano on 02-15-2025 Lymphocytes/100 WBC Auto (Unsp spec) 38.6 % 19-41 [facility] BRCon 02-15-2025 RC Normal [facility] Comment on above: Result Comment: [id number] OP RC TRANSFUSED 02/16/25 [id number] OP RC TRANSFUSED 02/16/25 1642 Performed By: #### B RC ####[facility] [address] [place], [place], [address] BUN/creatinine ratioOrdered By: Abdirashid Cano on 02-15-2025 Urea nitrogen/Creatinine [Mass ratio] 25.3 mg/mg High 10-20 [facility] Basophil percentageOrdered B y: Abdirashid Cano on 02-15-2025 Basophils/100 WBC (Bld) 0.4 % 0-1 [facility] Bedside Glucoseon 02-15-2025 FINGERSTICK GLU 148 mg/dL High 74-106 [facility] Comment on above: Result Comment: MARINA FERNANDEZ OF PATIENT CARE PER NURSING PROTOCOL Performed By: #### L 501.080 ####[facility] [address] [place], [place], [address] Bilirubin Test strip Ql (U)O rdered By: Abdirashid Cano on 02-15-2025 Bilirubin Ql (U) Negative Negative [facility] Bilirubin directOrdered By: Lakeshia Mas on 02-15-2025 Bilirubin.direct [Mass/Vol] 1.15 mg/dL High 0.00-0.30 [facility] Bilirubin, Directon 02-16-20 25 Bilirubin.direct [Mass/Vol] 1.15 mg/dL High 0.00-0.30 [facility] Comment on above: Performed By: #### L 3100.1850, L504.2610, L501.4700 ####[facility] [address] [place], [place], [address] Bilirubin, totalOrdered By: Abdirashid Cano on 02-15-2025 Bilirubin [Mass/Vol] 2.68 mg/dL High 0.00-1.30 [facility] CBC W/Diff, Automatedon 01-22 Absolute Lymph 3.52 X10 3/uL Normal 0.83-4.51 [facility] Comment on above: Performed By: #### L 100.0100, L500.4050 ####[facility] [address] [place], [place], [id number] Absolute Neut 4.6 X10 3/uL Normal 2.0-7.7 [facility] Comment on above: Performed By: #### L 100.0100, L500.4050 ####[facility] [address] [place], [address] Basophils/100 WBC (Bld) 0.4 % Normal 0-1 [facility] Comment on above: Performed By: #### L 100.0100, L500.4050 ####[facility] [address] [place], [address] Eosinophils/100 WBC (Bld) 1.8 % Normal 0-5 [facility] Comment on above: Performed By: #### L 100.0100, L500.4050 ####[facility] [address] [place], [address] Erythrocyte distribution width (RBC) [Ratio] 14.1 % Normal 11.6-14.6 [facility] Comment on above: Performed By: #### L 100.0100, L500.4050 ####[facility] [address] [place], [address] Hematocrit (Bld) [Volume fraction] 24.0 % Low 37-47 [facility] Comment on above: Performed By: #### L 100.0100, L500.4050 ####[facility] [address] [place], [address] Hemoglobin (Bld) [Mass/Vol] 8.7 g/dL Low 12.0-15.0 [facility] Comment on above: Performed By: #### L 100.0100, L500.4050 ####[facility] [address] [place], [address] IG% 0.300 Normal 0.0-0.9 [facility] Comment on above: Result Comment: IG% - Immature Granulocytes (promyelocytes, myelocytes andmetamyelocytes) > 1% indicates that a LEFT SHIFT is Present. Performed By: #### L 100.0100, L500.4050 ####[facility] [address] [place], [address] Lymphocytes/100 WBC (Bld) 38.6 % Normal 19-41 [facility] Comment on above: Performed By: #### L 100.0100, L500.4050 ####[facility] [address] [place], [address] MCH (RBC) [Entitic mass] 32.1 pg High 27.0-32.0 [facility] Comment on above: Performed By: #### L 100.0100, L500.4050 ####[facility] [address] [place], [address] MCHC (RBC) [Mass/Vol] 36.3 g/dL High 32-36 [facility] Comment on above: Performed By: #### L 100.0100, L500.4050 ####[facility] [address] [place], [address] MCV (RBC) [Entitic vol] 88.6 fL Normal 81-99 [facility] Comment on above: Performed By: #### L 100.0100, L500.4050 ####[facility] [address] [place], [address] Monocytes/100 WBC (Bld) 8.7 % Normal 0-10 [facility] Comment on above: Performed By: #### L 100.0100, L500.4050 ####[facility] [address] [place], [address] Neutrophils/100 WBC (Bld) 50.2 % Normal 47-70 [facility] Comment on above: Performed By: #### L 100.0100, L500.4050 ####[facility] [address] [place], [address] Nucleated RBC (Bld) [#/Vol] 0 10*3/uL Normal 0-5 [facility] Comment on above: Performed By: #### L 100.0100, L500.4050 ####[facility] [address] [place], [address] Platelet mean volume (Bld) [Entitic vol] 9.6 fL Normal 6.2-12.0 [facility] Comment on above: Performed By: #### L 100.0100, L500.4050 ####[facility] [address] [place], [address] Platelets (Bld) [#/Vol] 258 10*3/uL Normal 150-450 [facility] Comment on above: Performed By: #### L 100.0100, L500.4050 ####[facility] [address] [place], [address] RBC (Bld) [#/Vol] 2.71 10*6/uL Low 4.2-5.4 [facility] Comment on above: Performed By: #### L 100.0100, L500.4050 ####[facility] [address] [place], [address] RDW SD 42.4 fl Normal 35.1-43.9 [facility] Comment on above: Performed By: #### L 100.0100, L500.4050 ####[facility] [address] [place], [address] WBC (Bld) [#/Vol] 9.1 10*3/uL Normal 4.4-11.0 [facility] Comment on above: Performed By: #### L 100.0100, L500.4050 ####[facility] [address] [place], [address] Carbon dioxide, total [Moles /volume] in Central venous bloodOrdered By: Abdirashid Cano on 02-15-2025 CO2 [Moles/Vol] 18.1 mmol/L Low 21.0-32.0 [facility] Chloride assayOrdered By: Anurag Cano on 02-15-2025 Chloride [Moles/Vol] 100 mmol/L 98-108 [facility] Comprehensive Metabolic Prof ilon 02-15-2025 Albumin [Mass/Vol] 3.0 g/dL Low 3.4-4.8 [facility] Comment on above: Performed By: #### L 100.0100, L500.4050 ####[facility] [address] [place], [address] Albumin/Globulin [Mass ratio] 0.8 {ratio} Low 0.9-2.4 [facility] Comment on above: Performed By: #### L 100.0100, L500.4050 ####[facility] [address] [place], [address] ALK PHOS 77 U/L Normal 35-104 [facility] Comment on above: Performed By: #### L 100.0100, L500.4050 ####[facility] [address] [place], [address] ALT [Catalytic activity/Vol] U/L Normal <=34 [facility] Comment on above: Performed By: #### L 100.0100, L500.4050 ####[facility] [address] [place], [address] AST [Catalytic activity/Vol] 33 U/L High <=31 [facility] Comment on above: Performed By: #### L 100.0100, L500.4050 ####[facility] [address] [place], [address] Bilirubin [Mass/Vol] 2.68 mg/dL High 0.00-1.30 [facility] Comment on above: Performed By: #### L 100.0100, L500.4050 ####[facility] [address] [place], [address] BUN/CRE 25.3 RATIO High 10-20 [facility] Comment on above: Performed By: #### L 100.0100, L500.4050 ####[facility] [address] [place], [address] Calcium [Mass/Vol] 8.7 mg/dL Normal 7.6-11.0 [facility] Comment on above: Performed By: #### L 100.0100, L500.4050 ####[facility] [address] [place], [address] Chloride [Moles/Vol] 100 mmol/L Normal 98-108 [facility] Comment on above: Performed By: #### L 100.0100, L500.4050 ####[facility] [address] [place], [address] CO2 [Moles/Vol] 18.1 mmol/L Low 21.0-32.0 [facility] Comment on above: Performed By: #### L 100.0100, L500.4050 ####[facility] [address] [place], [address] Creatinine [Mass/Vol] 0.76 mg/dL Normal 0.70-1.20 [facility] Comment on above: Performed By: #### L 100.0100, L500.4050 ####[facility] [address] [place], [address] ECRCL 50.65 ml/min Normal 50-250 [facility] Comment on above: Performed By: #### L 100.0100, L500.4050 ####[facility] [address] [place], [address] GAP 15 Normal 5-15 [facility] Comment on above: Performed By: #### L 100.0100, L500.4050 ####[facility] [address] [place], [address] GFR/1.73 sq M.predicted among non-blacks MDRD (S/P/Bld) [Vol rate/Area] 80 mL/min/{1.73_m2} Normal >60 [facility] Comment on above: Result Comment: mL/m in/1.73m2 CKD-EPI Creatinine Equation (2020) Performed By: #### L 100.0100, L500.4050 ####[facility] [address] [place], [address] Globulin (S) [Mass/Vol] 3.7 g/dL Normal 2.2-4.2 [facility] Comment on above: Performed By: #### L 100.0100, L500.4050 ####[facility] [address] [place], [address] Glucose [Mass/Vol] 155 mg/dL High 70-99 [facility] Comment on above: Performed By: #### L 100.0100, L500.4050 ####[facility] [address] [place], [address] Potassium [Moles/Vol] 3.7 mmol/L Normal 3.3-5.1 [facility] Comment on above: Performed By: #### L 100.0100, L500.4050 ####[facility] [address] [place], [address] Sodium [Moles/Vol] 133 mmol/L Normal 133-145 [facility] Comment on above: Performed By: #### L 100.0100, L500.4050 ####[facility] [address] [place], [address] T PROT 6.8 g/dL Normal 5.9-8.4 [facility] Comment on above: Performed By: #### L 100.0100, L500.4050 ####[facility] [address] [place], [address] Urea nitrogen [Mass/Vol] 19 mg/dL Normal 4-19 [facility] Comment on above: Performed By: #### L 100.0100, L500.4050 ####[facility] [address] [place], [place], [address] Emergency Department Summary on 02-15-2025 Emergency Department Summary Normal [facility] Eosinophil percentageOrdered By: Abdirashid Cano on 02-15-2025 Eosinophils/100 WBC (Bld) 1.8 % 0-5 [facility] Erythrocyte distribution wid th ratioOrdered By: Abdirashid Cano on 02-15-2025 Erythrocyte distribution width (RBC) [Ratio] 14.1 % 11.6-14.6 [facility] Erythrocyte distribution wid th standard deviationOrdered By: Abdirashidroxie Cano on 02-15-2025 Erythrocyte distribution width (RBC) [Ratio] 42.4 fl 35.1-43.9 [facility] Femur Min 2 Viewson 02-16-20 25 Femur Min 2 Views Normal [facility] Ferritinon 02-15-2025 Ferritin [Mass/Vol] 150 ng/mL Normal 22-378 [facility] Comment on above: Performed By: #### L 503.6550, L100.9950, L503.6030 ####[facility] [address] [place], [place], [address] Glomerular filtration rate ( GFR) estimation/1.73 sq m using serum, plasma, or whole bOrdered By: Abdirashid Cano on 02-15-2025 GFR/1.73 sq M.predicted among non-blacks MDRD (S/P/Bld) [Vol rate/Area] 80 mL/min/{1.73_m2} >60 [facility] Comment on above: mL/min/1.73m2 CKD-EP I Creatinine Equation (2020) H AND P Exam - Hospitaliston 02-15-2025 H&P Exam - Hospitalist Normal [facility] HIP, UNI W/ Pelvis 2-3 Views on 02-15-2025 HIP, UNI W/ Pelvis 2-3 Views Normal [facility] Hematocrit Auto (Bld) [Volum e fraction]Ordered By: Abdirashid Cano on 02-15-2025 Hematocrit (Bld) [Volume fraction] 24.0 % Low 37-47 [facility] Hemoglobin measurementOrdere d By: Abdirashid Cano on 02-15-2025 Hemoglobin (Bld) [Mass/Vol] 8.7 g/dL Low 12.0-15.0 [facility] Immature granulocytes/100 WB C Auto (Bld)Ordered By: Abdirashid Cano on 02-15-2025 Immature granulocytes/100 WBC (Bld) 0.300 % 0.0-0.9 [facility] Comment on above: IG% - Immature Granu locytes (promyelocytes, myelocytes and metamyelocytes) > 1% indicates that a LEFT SHIFT is Present. Iron measurement (mass/mass) Ordered By: Lakeshia Mas on 02-15-2025 Iron (Unsp spec) [Mass/Mass] 62 ug/dL 50-170 [facility] Iron+Iron Binding Capacityon 02-15-2025 TIBC 197 ug/dL Low 250-450 [facility] Comment on above: Performed By: #### L 503.6550, L100.9950, L503.6030 ####[facility] [address] [place], [place], [address] Ketones Test strip Ql (U)Ord ered By: Abdirashid Cano on 02-15-2025 Ketones Ql (U) 15 mg/dl High Negative [facility] LDHon 02-15-2025 LDH 247 U/L High 84-246 [facility] Comment on above: Performed By: #### L 3100.1850, L504.2610, L501.4700 ####[facility] [address] [place], [place], [address] Laboratory - Chemistry and C hemistry - challengeOrdered By: Abdirashid Cano on 02-15-2025 AST [Catalytic activity/Vol] 33 U/L High <32 [facility] Lactate dehydrogenase (LDH) measurementOrdered By: Lakeshia Mas on 02-15-2025 LDH [Catalytic activity/Vol] 247 U/L High 84-246 [facility] MCV (mean corpuscular volume ) determinationOrdered By: Abdirashid Cano on 02-15-2025 MCV (RBC) [Entitic vol] 88.6 fL 81-99 [facility] Mean corpuscular hemoglobin (MCH) determinationOrdered By: Abdirashid Cano on 02-15-2025 MCH (RBC) [Entitic mass] 32.1 pg High 27.0-32.0 [facility] Mean corpuscular hemoglobin concentration (MCHC) determinationOrdered By: Abdirashid Cano on 02-15-2025 MCHC (RBC) [Mass/Vol] 36.3 g/dL High 32-36 [facility] Mean platelet volume determi nationOrdered By: Abdirashid Cano on 02-15-2025 Platelet mean volume (Bld) [Entitic vol] 9.6 fL 6.2-12.0 [facility] Microscopic analysis of urin e for red blood cells (RBC)Ordered By: Abdirashid Cano on 02-15-2025 Microscopic analysis of urine for red blood cells (RBC) 0-5 SEEN /hpf 0-5 [facility] Monocyte percentageOrdered B y: Abdirashid Cano on 02-15-2025 Monocytes/100 WBC (Bld) 8.7 % 0-10 [facility] Mucus LM Ql (Urine sed)Order ed By: Abdirashid Cano on 02-15-2025 Mucus Ql (Urine sed) 0 SEEN /hpf [facility] Neutrophil percentageOrdered By: Abdirashid Cano on 02-15-2025 Neutrophils/100 WBC (Bld) 50.2 % 47-70 [facility] Nitrite Test strip Ql (U)Ord ered By: Abdirashid Cano on 02-15-2025 Nitrite Ql (U) Negative Negative [facility] No Panel InformationOrdered By: Lakeshia Mas on 02-15-2025 Unsaturated Iron Binding Capacity 135 ug/dL Low 228-428 [facility] Nucleated red blood cell per centageOrdered By: Abdirashid Cano on 02-15-2025 Nucleated RBC/100 WBC (Bld) [Ratio] 0 % 0-5 [facility] Platelet countOrdered By: Anurag Cano on 02-15-2025 Platelets (Bld) [#/Vol] 258 10*3/uL 150-450 [facility] Potassium measurement (mass/ volume)Ordered By: Abdirashid Cano on 02-15-2025 Potassium (Unsp spec) [Mass/Vol] 3.7 mmol/L 3.3-5.1 [facility] Protein Test strip Ql (U)Ord ered By: Abdirashid Jerome on 02-15-2025 Protein Ql (U) 30 mg/dl High Negative [facility] RBC Auto (Bld) [#/Vol]Ordere d By: Abdirashid Jerome on 02-15-2025 RBC (Bld) [#/Vol] 2.71 10*6/uL Low 4.2-5.4 [facility] Retic Panelon 02-15-2025 IM RET FRACTION 12.50 Normal 3.00-15.90 [facility] Comment on above: Performed By: #### L 503.6550, L100.9950, L503.6030 ####[facility] [address] [place], [address] RET-HE 35.7 pg High 30-35 [facility] Comment on above: Performed By: #### L 503.6550, L100.9950, L503.6030 ####[facility] [address] [place], [address] Retic Count 4.81 High 0.5-1.5 [facility] Comment on above: Performed By: #### L 503.6550, L100.9950, L503.6030 ####[facility] [address] [place], [address] Reticulocyte hemoglobin equi valent (RET-He) measurementOrdered By: Lakeshia Mas on 02-15-2025 Hemoglobin (Reticulocytes) [Entitic mass] 35.7 pg High 30-35 [facility] Reticulocytes Auto (Bld) [#/ Vol]Ordered By: Lakeshia Mas on 02-15-2025 Reticulocytes/100 RBC (Bld) 4.81 % High 0.5-1.5 [facility] Serum creatinine measurement (mass/volume)Ordered By: Abdirashid Cano on 02-15-2025 Creatinine [Mass/Vol] 0.76 mg/dL 0.70-1.20 [facility] Serum globulin measurementOr dered By: Abdirashid Cano on 02-15-2025 Globulin (S) [Mass/Vol] 3.7 g/dL 2.2-4.2 [facility] Serum glucose measurement (m ass/volume)Ordered By: Abdirashid Cano on 02-15-2025 Glucose [Mass/Vol] 155 mg/dL High 70-99 [facility] Serum or plasma alanine cornejo otransferase (ALT) measurementOrdered By: Abdirashid Cano on 02-15-2025 ALT [Catalytic activity/Vol] U/L <35 [facility] Serum or plasma albumin sabino urement (mass/volume)Ordered By: Abdirashid Cano on 02-15-2025 Albumin [Mass/Vol] 3.0 g/dL Low 3.4-4.8 [facility] Serum or plasma albumin/glob ulin mass ratioOrdered By: Abdirashid Cano on 02-15-2025 Albumin/Globulin [Mass ratio] 0.8 {ratio} Low 0.9-2.4 [facility] Serum or plasma alkaline shaista sphatase measurementOrdered By: Abdirashid Cano on 02-15-2025 ALP [Catalytic activity/Vol] 77 U/L 35-104 [facility] Serum or plasma calcium sabino urement (mass/volume)Ordered By: Abdirashid Cano on 02-15-2025 Calcium [Mass/Vol] 8.7 mg/dL 7.6-11.0 [facility] Serum or plasma ferritin uzma surement (mass/volume)Ordered By: Lakeshia Mas on 02-15-2025 Ferritin [Mass/Vol] 150 ng/mL 22-378 [facility] Serum or plasma iron saturat ion measurement (mass fraction)Ordered By: Lakeshia Mas on 02-15-2025 Iron saturation [Mass fraction] 32.0 % 13-59 [facility] Comment on above: Previous reported re sult: 32.0 %Edited by: CHACHA on 02/15/25:2135 Serum or plasma urea nitroge n measurement (mass/volume)Ordered By: Abdirashid Cano on 02-15-2025 Urea nitrogen [Mass/Vol] 19 mg/dL 4-19 [facility] Sodium levelOrdered By: Judith Cano on 02-15-2025 Sodium [Moles/Vol] 133 mmol/L 133-145 [facility] Squamous epithelial cells de tection in urine sediment by light microscopyOrdered By: Abdirashid Cano on 02-15-2025 Epithelial cells.squamous LM Ql (Urine sed) 5-10 SEEN /hpf 5-10 [facility] Total proteinOrdered By: Ronak Cano on 02-15-2025 Protein [Mass/Vol] 6.8 g/dL 5.9-8.4 [facility] Urinalysis, Completeon 02-15 EPI,SQUAMOUS 5-10 SEEN Normal 5-10 [facility] Comment on above: Order Comment: MELVIN TER SPECIMEN Performed By: #### L 400.0001 ####[facility] [address] [place], [address] RBC 0-5 SEEN Normal 0-5 [facility] Comment on above: Order Comment: MELIVN TER SPECIMEN Performed By: #### L 400.0001 ####[facility] [address] [place], [address] WBC 0-5 SEEN Normal 0-5 [facility] Comment on above: Order Comment: MELVIN TER SPECIMEN Performed By: #### L 400.0001 ####[facility] [address] [place], [address] BACTERIA 0 SEEN Normal None Seen [facility] Comment on above: Order Comment: MELVIN TER SPECIMEN Performed By: #### L 400.0001 ####[facility] [address] [place], [address] Mucus Ql (Urine sed) 0 SEEN Normal [facility] Comment on above: Order Comment: MELVIN TER SPECIMEN Performed By: #### L 400.0001 ####[facility] [address] [place], [address] Urine clarityOrdered By: Ronak Cano on 02-15-2025 Clarity (U) Clear Clear [facility] Urine color determinationOrd ered By: Abdirashid Cano on 02-15-2025 Color (U) Straw Yellow [facility] Urine glucose detectionOrder ed By: Abdirashid Cano on 02-15-2025 Glucose Ql (U) Normal mg/dl Normal [facility] Urine leukocyte esterase det ection by dipstickOrdered By: Abdirashid Cano on 02-15-2025 Leukocyte esterase Test strip Ql (U) Negative Negative [facility] Urine pHOrdered By: Abdirashid walden on 02-15-2025 pH (U) 6.5 [pH] 5.0 - 8.0 [facility] Urine sediment bacteria coun t by microscopy (number/high power field)Ordered By: Abdirashid Cano on 02-15-2025 Bacteria LM.HPF (Urine sed) [#/Area] 0 /[HPF] None Seen [facility] Urine specific gravity measu rementOrdered By: Abdirasihd Cano on 02-15-2025 Specific gravity (U) [Rel density] 1.010 1.002-1.030 [facility] Urine urobilinogen measureme ntOrdered By: Abdirashid Cano on 02-15-2025 Urobilinogen Ql (U) 8 mg/dl High Normal [facility] White blood cell (WBC) count Ordered By: Abdirashid Cano on 02-15-2025 WBC (Bld) [#/Vol] 9.1 10*3/uL 4.4-11.0 [facility] White blood cell countOrdere d By: Abdirashid Cano on 02-15-2025 White blood cell count 0-5 SEEN /hpf 0-5 [facility] CBC W/Diff, Automatedon 05-0 Absolute Neut Normal 2.0-7.7 [facility] Comment on above: Result Comment: WAS UTO, WILL COME BACK ANOTHER DAY Performed By: #### L 100.0100, L500.4050, L500.4100 ####[facility] [address] [place], [address] HCT Normal 37-47 [facility] Comment on above: Result Comment: WAS UTO, WILL COME BACK ANOTHER DAY Performed By: #### L 100.0100, L500.4050, L500.4100 ####[facility] [address] [place], [address] HGB Normal 12.0-15.0 [facility] Comment on above: Result Comment: WAS UTO, WILL COME BACK ANOTHER DAY Performed By: #### L 100.0100, L500.4050, L500.4100 ####[facility] [address] [place], [address] MCH Normal 27.0-32.0 [facility] Comment on above: Result Comment: WAS UTO, WILL COME BACK ANOTHER DAY Performed By: #### L 100.0100, L500.4050, L500.4100 ####[facility] [address] [place], [address] MCHC Normal 32-36 [facility] Comment on above: Result Comment: WAS UTO, WILL COME BACK ANOTHER DAY Performed By: #### L 100.0100, L500.4050, L500.4100 ####[facility] [address] [place], [address] MCV Normal 81-99 [facility] Comment on above: Result Comment: WAS UTO, WILL COME BACK ANOTHER DAY Performed By: #### L 100.0100, L500.4050, L500.4100 ####[facility] [address] [place], [address] NEUT% Normal 47-70 [facility] Comment on above: Result Comment: WAS UTO, WILL COME BACK ANOTHER DAY Performed By: #### L 100.0100, L500.4050, L500.4100 ####[facility] [address] [place], [address] PLT Normal 150-450 [facility] Comment on above: Result Comment: WAS UTO, WILL COME BACK ANOTHER DAY Performed By: #### L 100.0100, L500.4050, L500.4100 ####[facility] [address] [place], [address] RBC Normal 4.2-5.4 [facility] Comment on above: Result Comment: WAS UTO, WILL COME BACK ANOTHER DAY Performed By: #### L 100.0100, L500.4050, L500.4100 ####[facility] [address] [place], [address] RDW CV Normal 11.6-14.6 [facility] Comment on above: Result Comment: WAS UTO, WILL COME BACK ANOTHER DAY Performed By: #### L 100.0100, L500.4050, L500.4100 ####[facility] [address] [place], [address] RDW SD Normal 35.1-43.9 [facility] Comment on above: Result Comment: WAS UTO, WILL COME BACK ANOTHER DAY Performed By: #### L 100.0100, L500.4050, L500.4100 ####[facility] [address] [place], [address] WBC Normal 4.4-11.0 [facility] Comment on above: Result Comment: WAS UTO, WILL COME BACK ANOTHER DAY Performed By: #### L 100.0100, L500.4050, L500.4100 ####[facility] [address] [place], [address] Comprehensive Metabolic Prof ilon 12-27-2024 ALB Normal 3.4-4.8 [facility] Comment on above: Result Comment: WAS UTO, WILL COME BACK ANOTHER DAY Performed By: #### L 100.0100, L500.4050, L500.4100 ####[facility] [address] [place], [address] ALK PHOS Normal 35-104 [facility] Comment on above: Result Comment: WAS UTO, WILL COME BACK ANOTHER DAY Performed By: #### L 100.0100, L500.4050, L500.4100 ####[facility] [address] [place], [address] ALT Normal <=34 [facility] Comment on above: Result Comment: WAS UTO, WILL COME BACK ANOTHER DAY Performed By: #### L 100.0100, L500.4050, L500.4100 ####[facility] [address] [place], [address] AST Normal <=31 [facility] Comment on above: Result Comment: WAS UTO, WILL COME BACK ANOTHER DAY Performed By: #### L 100.0100, L500.4050, L500.4100 ####[facility] [address] [place], [address] BUN Normal 4-19 [facility] Comment on above: Result Comment: WAS UTO, WILL COME BACK ANOTHER DAY Performed By: #### L 100.0100, L500.4050, L500.4100 ####[facility] [address] [place], [address] BUN/CRE Normal 10-20 [facility] Comment on above: Result Comment: WAS UTO, WILL COME BACK ANOTHER DAY Performed By: #### L 100.0100, L500.4050, L500.4100 ####[facility] [address] [place], [address] Calcium Normal 7.6-11.0 [facility] Comment on above: Result Comment: WAS UTO, WILL COME BACK ANOTHER DAY Performed By: #### L 100.0100, L500.4050, L500.4100 ####[facility] [address] [place], [address] CL Normal 98-108 [facility] Comment on above: Result Comment: WAS UTO, WILL COME BACK ANOTHER DAY Performed By: #### L 100.0100, L500.4050, L500.4100 ####[facility] [address] [place], [address] CO2 Normal 21.0-32.0 [facility] Comment on above: Result Comment: WAS UTO, WILL COME BACK ANOTHER DAY Performed By: #### L 100.0100, L500.4050, L500.4100 ####[facility] [address] [place], [address] CREAT,SERUM Normal 0.70-1.20 [facility] Comment on above: Result Comment: WAS UTO, WILL COME BACK ANOTHER DAY Performed By: #### L 100.0100, L500.4050, L500.4100 ####[facility] [address] [place], [address] eGFR Normal >60 [facility] Comment on above: Result Comment: WAS UTO, WILL COME BACK ANOTHER DAY Performed By: #### L 100.0100, L500.4050, L500.4100 ####[facility] [address] [place], [address] GAP Normal 5-15 [facility] Comment on above: Result Comment: WAS UTO, WILL COME BACK ANOTHER DAY Performed By: #### L 100.0100, L500.4050, L500.4100 ####[facility] [address] [place], [address] GLU Normal 70-99 [facility] Comment on above: Result Comment: WAS UTO, WILL COME BACK ANOTHER DAY Performed By: #### L 100.0100, L500.4050, L500.4100 ####[facility] [address] [place], [address] Potassium Normal 3.3-5.1 [facility] Comment on above: Result Comment: WAS UTO, WILL COME BACK ANOTHER DAY Performed By: #### L 100.0100, L500.4050, L500.4100 ####[facility] [address] [place], [address] T BILI Normal 0.00-1.30 [facility] Comment on above: Result Comment: WAS UTO, WILL COME BACK ANOTHER DAY Performed By: #### L 100.0100, L500.4050, L500.4100 ####[facility] [address] [place], [address] T PROT Normal 5.9-8.4 [facility] Comment on above: Result Comment: WAS UTO, WILL COME BACK ANOTHER DAY Performed By: #### L 100.0100, L500.4050, L500.4100 ####[facility] [address] [place], [address] Comprehensive Metabolic Profil Normal 133-145 [facility] Comment on above: Result Comment: WAS UTO, WILL COME BACK ANOTHER DAY Performed By: #### L 100.0100, L500.4050, L500.4100 ####[facility] [address] [place], [address] Lipid Profileon 12-27-2024 CHOL Normal <=200 [facility] Comment on above: Result Comment: WAS UTO, WILL COME BACK ANOTHER DAY Performed By: #### L 100.0100, L500.4050, L500.4100 ####[facility] [address] [place], [address] CHOL:HDL Normal [facility] Comment on above: Result Comment: WAS UTO, WILL COME BACK ANOTHER DAY Performed By: #### L 100.0100, L500.4050, L500.4100 ####[facility] [address] [place], [address] CLDL Normal [facility] Comment on above: Result Comment: WAS UTO, WILL COME BACK ANOTHER DAY Performed By: #### L 100.0100, L500.4050, L500.4100 ####[facility] [address] [place], [address] HDL Normal [facility] Comment on above: Result Comment: WAS UTO, WILL COME BACK ANOTHER DAY Performed By: #### L 100.0100, L500.4050, L500.4100 ####[facility] [address] [place], [address] TRIG Normal [facility] Comment on above: Result Comment: WAS UTO, WILL COME BACK ANOTHER DAY Performed By: #### L 100.0100, L500.4050, L500.4100 ####[facility] [address] [place], [address] VLDL Normal 5-40 [facility] Comment on above: Result Comment: WAS UTO, WILL COME BACK ANOTHER DAY Performed By: #### L 100.0100, L500.4050, L500.4100 ####[facility] [address] [place], [address] Absolute lymphocyte countOrd ered By: Candelario Santana on 09-25-2024 Lymphocytes Auto (Unsp spec) [#/Vol] 2.89 10*3/uL 0.83-4.51 [facility] Absolute neutrophil countOrd ered By: Candelario Santana on 09-25-2024 Neutrophils (Bld) [#/Vol] 4.6 10*3/uL 2.0-7.7 [facility] Albumin to globulin ratioOrd ered By: Candelario Santana on 09-25-2024 Albumin/Globulin [Mass ratio] 0.7 {ratio} Low 0.9-2.4 [facility] Automated lymphocyte count a s percentage of total leukocytesOrdered By: Candelario Santana on 09-25-2024 Lymphocytes/100 WBC Auto (Unsp spec) 33.8 % 19-41 [facility] Basophil percentageOrdered B y: Candelario Santana on 09-25-2024 Basophils/100 WBC (Bld) 0.5 % 0-1 [facility] Bilirubin, totalOrdered By: Candelario Santana on 02-03-2025 Bilirubin [Mass/Vol] 1.10 mg/dL High 0.20-1.00 [facility] Comment on above: For patients on eltr ombopag therapy, use of Dimension [place] TBIL is not recommended. Blood urea nitrogen (BUN)/cr eatinine ratioOrdered By: Candelario Santana on 09-25-2024 Urea nitrogen/Creatinine [Mass ratio] 17.2 mg/mg 10-20 [facility] CBC W/Diff, Automatedon Absolute Lymph 2.89 X10 3/uL Normal 0.83-4.51 [facility] Comment on above: Performed By: #### L 100.0100, L502.0250, L501.9520, L506.1000, L500.4100, L500.4050, L501.9985 ####[facility] [address] [place], [address] Absolute Neut 4.6 X10 3/uL Normal 2.0-7.7 [facility] Comment on above: Performed By: #### L 100.0100, L502.0250, L501.9520, L506.1000, L500.4100, L500.4050, L501.9985 ####[facility] [address] [place], [address] Basophils/100 WBC (Bld) 0.5 % Normal 0-1 [facility] Comment on above: Performed By: #### L 100.0100, L502.0250, L501.9520, L506.1000, L500.4100, L500.4050, L501.9985 ####[facility] [address] [place], [address] Eosinophils/100 WBC (Bld) 2.6 % Normal 0-5 [facility] Comment on above: Performed By: #### L 100.0100, L502.0250, L501.9520, L506.1000, L500.4100, L500.4050, L501.9985 ####[facility] [address] [place], [address] Erythrocyte distribution width (RBC) [Ratio] 13.6 % Normal 11.6-14.6 [facility] Comment on above: Performed By: #### L 100.0100, L502.0250, L501.9520, L506.1000, L500.4100, L500.4050, L501.9985 ####[facility] [address] [place], [address] Hematocrit (Bld) [Volume fraction] 31.9 % Low 37-47 [facility] Comment on above: Performed By: #### L 100.0100, L502.0250, L501.9520, L506.1000, L500.4100, L500.4050, L501.9985 ####[facility] [address] [place], [address] Hemoglobin (Bld) [Mass/Vol] 11.4 g/dL Low 12.0-15.0 [facility] Comment on above: Performed By: #### L 100.0100, L502.0250, L501.9520, L506.1000, L500.4100, L500.4050, L501.9985 ####[facility] [address] [place], [address] IG% 0.200 Normal 0.0-0.9 [facility] Comment on above: Result Comment: IG% - Immature Granulocytes (promyelocytes, myelocytes andmetamyelocytes) > 1% indicates that a LEFT SHIFT is Present. Performed By: #### L 100.0100, L502.0250, L501.9520, L506.1000, L500.4100, L500.4050, L501.9985 ####[facility] [address] [place], [address] Lymphocytes/100 WBC (Bld) 33.8 % Normal 19-41 [facility] Comment on above: Performed By: #### L 100.0100, L502.0250, L501.9520, L506.1000, L500.4100, L500.4050, L501.9985 ####[facility] [address] [place], [address] MCH (RBC) [Entitic mass] 31.6 pg Normal 27.0-32.0 [facility] Comment on above: Performed By: #### L 100.0100, L502.0250, L501.9520, L506.1000, L500.4100, L500.4050, L501.9985 ####[facility] [address] [place], [address] MCHC (RBC) [Mass/Vol] 35.7 g/dL Normal 32-36 [facility] Comment on above: Performed By: #### L 100.0100, L502.0250, L501.9520, L506.1000, L500.4100, L500.4050, L501.9985 ####[facility] [address] [place], [address] MCV (RBC) [Entitic vol] 88.4 fL Normal 81-99 [facility] Comment on above: Performed By: #### L 100.0100, L502.0250, L501.9520, L506.1000, L500.4100, L500.4050, L501.9985 ####[facility] [address] [place], [address] Monocytes/100 WBC (Bld) 9.6 % Normal 0-10 [facility] Comment on above: Performed By: #### L 100.0100, L502.0250, L501.9520, L506.1000, L500.4100, L500.4050, L501.9985 ####[facility] [address] [place], [address] Neutrophils/100 WBC (Bld) 53.3 % Normal 47-70 [facility] Comment on above: Performed By: #### L 100.0100, L502.0250, L501.9520, L506.1000, L500.4100, L500.4050, L501.9985 ####[facility] [address] [place], [address] Nucleated RBC (Bld) [#/Vol] 0 10*3/uL Normal 0-5 [facility] Comment on above: Performed By: #### L 100.0100, L502.0250, L501.9520, L506.1000, L500.4100, L500.4050, L501.9985 ####[facility] [address] [place], [address] Platelet mean volume (Bld) [Entitic vol] 10.0 fL Normal 6.2-12.0 [facility] Comment on above: Performed By: #### L 100.0100, L502.0250, L501.9520, L506.1000, L500.4100, L500.4050, L501.9985 ####[facility] [address] [place], [address] Platelets (Bld) [#/Vol] 225 10*3/uL Normal 150-450 [facility] Comment on above: Performed By: #### L 100.0100, L502.0250, L501.9520, L506.1000, L500.4100, L500.4050, L501.9985 ####[facility] [address] [place], [address] RBC (Bld) [#/Vol] 3.61 10*6/uL Low 4.2-5.4 [facility] Comment on above: Performed By: #### L 100.0100, L502.0250, L501.9520, L506.1000, L500.4100, L500.4050, L501.9985 ####[facility] [address] [place], [address] RDW SD 42.6 fl Normal 35.1-43.9 [facility] Comment on above: Performed By: #### L 100.0100, L502.0250, L501.9520, L506.1000, L500.4100, L500.4050, L501.9985 ####[facility] [address] [place], [address] WBC (Bld) [#/Vol] 8.6 10*3/uL Normal 4.4-11.0 [facility] Comment on above: Performed By: #### L 100.0100, L502.0250, L501.9520, L506.1000, L500.4100, L500.4050, L501.9985 ####[facility] [address] [place], [place], [id number] Carbon dioxide measurementOr dered By: Candelario Santana on 09-25-2024 CO2 [Moles/Vol] 24.0 mmol/L 21.0-32.0 [facility] Chloride measurementOrdered By: Candelario Santana on 09-25-2024 Chloride [Moles/Vol] 104 mmol/L 98-107 [facility] Comprehensive Metabolic Prof ilon 09-25-2024 Albumin [Mass/Vol] 3.2 g/dL Normal 3.2-5.0 [facility] Comment on above: Performed By: #### L 100.0100, L502.0250, L501.9520, L506.1000, L500.4100, L500.4050, L501.9985 ####[facility] [address] [place], [place], [id number] Albumin/Globulin [Mass ratio] 0.7 {ratio} Low 0.9-2.4 [facility] Comment on above: Performed By: #### L 100.0100, L502.0250, L501.9520, L506.1000, L500.4100, L500.4050, L501.9985 ####[facility] [address] [place], [address] ALK P 89 U/L Normal 45-117 [facility] Comment on above: Performed By: #### L 100.0100, L502.0250, L501.9520, L506.1000, L500.4100, L500.4050, L501.9985 ####[facility] [address] [place], [address] ALT [Catalytic activity/Vol] 18 U/L Normal 13-56 [facility] Comment on above: Performed By: #### L 100.0100, L502.0250, L501.9520, L506.1000, L500.4100, L500.4050, L501.9985 ####[facility] [address] [place], [address] AST [Catalytic activity/Vol] 26 U/L Normal 15-37 [facility] Comment on above: Performed By: #### L 100.0100, L502.0250, L501.9520, L506.1000, L500.4100, L500.4050, L501.9985 ####[facility] [address] [place], [address] Bilirubin [Mass/Vol] 1.10 mg/dL High 0.20-1.00 [facility] Comment on above: Result Comment: For patients on eltrombopag therapy, use of Dimension [place] TBIL is not recommended. Performed By: #### L 100.0100, L502.0250, L501.9520, L506.1000, L500.4100, L500.4050, L501.9985 ####[facility] [address] [place], [address] BUN/CRE 17.2 RATIO Normal 10-20 [facility] Comment on above: Performed By: #### L 100.0100, L502.0250, L501.9520, L506.1000, L500.4100, L500.4050, L501.9985 ####[facility] [address] [place], [address] CA,Total 9.0 mg/dL Normal 8.5-10.1 [facility] Comment on above: Performed By: #### L 100.0100, L502.0250, L501.9520, L506.1000, L500.4100, L500.4050, L501.9985 ####[facility] [address] [place], [address] Chloride [Moles/Vol] 104 mmol/L Normal 98-107 [facility] Comment on above: Performed By: #### L 100.0100, L502.0250, L501.9520, L506.1000, L500.4100, L500.4050, L501.9985 ####[facility] [address] [place], [address] CO2 [Moles/Vol] 24.0 mmol/L Normal 21.0-32.0 [facility] Comment on above: Performed By: #### L 100.0100, L502.0250, L501.9520, L506.1000, L500.4100, L500.4050, L501.9985 ####[facility] [address] [place], [address] Creatinine [Mass/Vol] 0.87 mg/dL Normal 0.55-1.02 [facility] Comment on above: Result Comment: The validity of the calculated GFR GFRAA in patients over70 years has not been determined. Clinical correlation isessential. Performed By: #### L 100.0100, L502.0250, L501.9520, L506.1000, L500.4100, L500.4050, L501.9985 ####[facility] [address] [place], [address] EST GFR - AA 81 mL/min Normal >60 [facility] Comment on above: Result Comment: Afri can Gambian GFR Calc Performed By: #### L 100.0100, L502.0250, L501.9520, L506.1000, L500.4100, L500.4050, L501.9985 ####[facility] [address] [place], [address] GAP 9 Normal 5-15 [facility] Comment on above: Performed By: #### L 100.0100, L502.0250, L501.9520, L506.1000, L500.4100, L500.4050, L501.9985 ####[facility] [address] [place], [address] GFR/1.73 sq M.predicted among non-blacks MDRD (S/P/Bld) [Vol rate/Area] 67 mL/min/{1.73_m2} Normal >60 [facility] Comment on above: Result Comment: Non- GFR Calc Performed By: #### L 100.0100, L502.0250, L501.9520, L506.1000, L500.4100, L500.4050, L501.9985 ####[facility] [address] [place], [place], [phone] Globulin (S) [Mass/Vol] 4.3 g/dL High 2.2-4.2 [facility] Comment on above: Performed By: #### L 100.0100, L502.0250, L501.9520, L506.1000, L500.4100, L500.4050, L501.9985 ####[facility] [address] [place], [address] Glucose [Mass/Vol] 176 mg/dL High 74-106 [facility] Comment on above: Result Comment: Fast ing Glucose result greater than or equal to 126 mg/dLsuggests DIABETES MELLITUS per A.D.A. criteria. Performed By: #### L 100.0100, L502.0250, L501.9520, L506.1000, L500.4100, L500.4050, L501.9985 ####[facility] [address] [place], [address] Potassium [Moles/Vol] 3.3 mmol/L Low 3.5-5.1 [facility] Comment on above: Performed By: #### L 100.0100, L502.0250, L501.9520, L506.1000, L500.4100, L500.4050, L501.9985 ####[facility] [address] [place], [address] Sodium [Moles/Vol] 137 mmol/L Normal 136-145 [facility] Comment on above: Performed By: #### L 100.0100, L502.0250, L501.9520, L506.1000, L500.4100, L500.4050, L501.9985 ####[facility] [address] [place], [address] T PROT 7.5 g/dL Normal 6.4-8.2 [facility] Comment on above: Performed By: #### L 100.0100, L502.0250, L501.9520, L506.1000, L500.4100, L500.4050, L501.9985 ####[facility] [address] [place], [address] Urea nitrogen [Mass/Vol] 15 mg/dL Normal 7-18 [facility] Comment on above: Performed By: #### L 100.0100, L502.0250, L501.9520, L506.1000, L500.4100, L500.4050, L501.9985 ####[facility] [address] [place], [place], [id number] Eosinophil percentageOrdered By: [facility] on 09-25-2024 Eosinophils/100 WBC (Bld) 2.6 % 0-5 [facility] Erythrocyte distribution wid th ratioOrdered By: [facility] on 09-25-2024 Erythrocyte distribution width (RBC) [Ratio] 13.6 % 11.6-14.6 [facility] Erythrocyte distribution wid th standard deviationOrdered By: [facility] on 09-25-2024 Erythrocyte distribution width (RBC) [Ratio] 42.6 fl 35.1-43.9 [facility] Glomerular filtration rate ( GFR) estimationOrdered By: [facility] on 09-25-2024 GFR/1.73 sq M.predicted among non-blacks MDRD (S/P/Bld) [Vol rate/Area] 67 mL/min/{1.73_m2} >60 [facility] Comment on above: Non- GFR Calc Glucose measurementOrdered B y: Candelario Santana on 09-25-2024 Glucose [Mass/Vol] 176 mg/dL High 74-106 [facility] Comment on above: Fasting Glucose resu lt greater than or equal to 126 mg/dL suggests DIABETES MELLITUS per A.D.A. criteria. Hematocrit Auto (Bld) [Volum e fraction]Ordered By: Candelario Max on 09-25-2024 Hematocrit (Bld) [Volume fraction] 31.9 % Low 37-47 [facility] Hemoglobin A1c percentageOrd ered By: [facility] 09-25-2024 HbA1c (Bld) [Mass fraction] 4.7 % Normal 3.8-5.6 [facility] Comment on above: Normal < 5.7 % Predi abetic 5.7 - 6.4 % Diabetic >or= 6.5 % Please note range changes. Result Comment: Norm al < 5.7 % Prediabetic 5.7 - 6.4 % Diabetic >or= 6.5 % Please note range changes. Performed By: #### L 100.0100, L502.0250, L501.9520, L506.1000, L500.4100, L500.4050, L501.9985 ####[facility] [address] [place], [address] Hemoglobin measurementOrdere d By: Candelario Santana on 09-25-2024 Hemoglobin (Bld) [Mass/Vol] 11.4 g/dL Low 12.0-15.0 [facility] High density lipoprotein (HD L) measurementOrdered By: Candelario Santana on 09-25-2024 Cholesterol in HDL [Mass/Vol] 50 mg/dL >40 [facility] Comment on above: The drugs N-Acetylcy steine and Metamizole may falsely depress this assay. Reference Range HDL <40 mg/dL Low HDL Cholesterol HDL >or= 60 mg/dL High HDL Cholesterol Immature granulocytes/100 WB C Auto (Bld)Ordered By: Candelario Santana on 09-25-2024 Immature granulocytes/100 WBC (Bld) 0.200 % 0.0-0.9 [facility] Comment on above: IG% - Immature Granu locytes (promyelocytes, myelocytes and metamyelocytes) > 1% indicates that a LEFT SHIFT is Present. Laboratory - Chemistry and C hemistry - challengeOrdered By: Candelario Santana on 09-25-2024 AST [Catalytic activity/Vol] 26 U/L 15-37 [facility] Lipid Profileon 09-25-2024 Cholesterol [Mass/Vol] 158 mg/dL Normal 200 [facility] Comment on above: Result Comment: <200 mg/dL Desirable 200-240 mg/dL Borderline >240 mg/dL High Risk Performed By: #### L 100.0100, L502.0250, L501.9520, L506.1000, L500.4100, L500.4050, L501.9985 ####[facility] [address] [place], [place], [id number] Cholesterol in HDL [Mass/Vol] 50 mg/dL Normal [facility] Comment on above: Result Comment: The drugs N-Acetylcysteine and Metamizole may falselydepress this assay. Reference Range HDL <40 mg/dL Low HDL Cholesterol HDL >or= 60 mg/dL High HDL Cholesterol Performed By: #### L 100.0100, L502.0250, L501.9520, L506.1000, L500.4100, L500.4050, L501.9985 ####[facility] [address] [place], [place], [phone] Cholesterol in LDL [Mass/Vol] 85 mg/dL Normal 0-130 [facility] Comment on above: Performed By: #### L 100.0100, L502.0250, L501.9520, L506.1000, L500.4100, L500.4050, L501.9985 ####[facility] [address] [place], [address] Cholesterol in VLDL [Mass/Vol] 23 mg/dL Normal 5-40 [facility] Comment on above: Performed By: #### L 100.0100, L502.0250, L501.9520, L506.1000, L500.4100, L500.4050, L501.9985 ####[facility] [address] [place], [address] Triglyceride [Mass/Vol] 114 mg/dL Normal [facility] Comment on above: Result Comment: The drugs N-Acetylcysteine and Metamizole may falselydepress this assay.Serum Triglycerides Reference Interval Normal <150 mg/dL Borderline high 150 - 199 mg/dL High 200 - 499 mg/dL Very High > or = 500 mg/dL Performed By: #### L 100.0100, L502.0250, L501.9520, L506.1000, L500.4100, L500.4050, L501.9985 ####[facility] [address] [place], [address] Low density lipoprotein (LDL ) cholesterol measurementOrdered By: Candelario Santana on 09-25-2024 Cholesterol in LDL [Mass/Vol] 85 mg/dL 0-130 [facility] MCV (mean corpuscular volume ) determinationOrdered By: Candelario Santana on 09-25-2024 MCV (RBC) [Entitic vol] 88.4 fL 81-99 [facility] Mean corpuscular hemoglobin (MCH) determinationOrdered By: Candelario Santana on 09-25-2024 MCH (RBC) [Entitic mass] 31.6 pg 27.0-32.0 [facility] Mean corpuscular hemoglobin concentration (MCHC) determinationOrdered By: Candelario Santana on 09-25-2024 MCHC (RBC) [Mass/Vol] 35.7 g/dL 32-36 [facility] Mean platelet volume determi nationOrdered By: Candelario Santana on 09-25-2024 Platelet mean volume (Bld) [Entitic vol] 10.0 fL 6.2-12.0 [facility] Microalb:Creat Ratio,Random URon 09-25-2024 MALB:CRE Normal <30 mg/g CRE [facility] Comment on above: Result Comment: UTO Performed By: #### L 100.0100, L502.0250, L501.9520, L506.1000, L500.4100, L500.4050, L501.9985 ####[facility] [address] [facility] [place], [place], [id number] MICROALBUMIN,UR Normal NO RANGE EST. [facility] Comment on above: Result Comment: UTO Performed By: #### L 100.0100, L502.0250, L501.9520, L506.1000, L500.4100, L500.4050, L501.9985 ####[facility] [address] [place], [place], [id number] Monocyte percentageOrdered B y: Candelario Santana on 09-25-2024 Monocytes/100 WBC (Bld) 9.6 % 0-10 [facility] Neutrophil percentageOrdered By: Candelario Santana on 09-25-2024 Neutrophils/100 WBC (Bld) 53.3 % 47-70 [facility] Nucleated red blood cell per centageOrdered By: Candelario Santana on 09-25-2024 Nucleated RBC/100 WBC (Bld) [Ratio] 0 % 0-5 [facility] Platelet countOrdered By: Ben Santana on 09-25-2024 Platelets (Bld) [#/Vol] 225 10*3/uL 150-450 [facility] Potassium measurementOrdered By: Candelario Santana on 09-25-2024 Potassium [Moles/Vol] 3.3 mmol/L Low 3.5-5.1 [facility] RBC Auto (Bld) [#/Vol]Ordere d By: Candelario Santana on 09-25-2024 RBC (Bld) [#/Vol] 3.61 10*6/uL Low 4.2-5.4 [facility] Serum anion gap measurementO rdered By: Candelario Santana on 09-25-2024 Anion gap [Moles/Vol] 9 mmol/L 5-15 [facility] Serum globulin measurementOr dered By: Candelario Santana on 09-25-2024 Globulin (S) [Mass/Vol] 4.3 g/dL High 2.2-4.2 [facility] Serum or plasma alanine cornejo otransferase (ALT) measurementOrdered By: Candelario Santana 09-25-2024 ALT [Catalytic activity/Vol] 18 U/L 13-56 [facility] Serum or plasma albumin sabino urement (mass/volume)Ordered By: Candelario Santana 09-25-2024 Albumin [Mass/Vol] 3.2 g/dL 3.2-5.0 [facility] Serum or plasma alkaline shaista sphatase measurementOrdered By: Candelario Santana 09-25-2024 ALP [Catalytic activity/Vol] 89 U/L 45-117 [facility] Serum or plasma calcium sabino urement (mass/volume)Ordered By: Candelario Santana 09-25-2024 Calcium [Mass/Vol] 9.0 mg/dL 8.5-10.1 [facility] Serum or plasma cholesterol measurement (mass/volume)Ordered By: Candelario Santana 09-25-2024 Cholesterol [Mass/Vol] 158 mg/dL <200 [facility] Comment on above: <200 mg/dL Desirable 200-240 mg/dL Borderline >240 mg/dL High Risk Serum or plasma creatinine m easurement (mass/volume)Ordered By: Candelario Santana on 09-25-2024 Creatinine [Mass/Vol] 0.87 mg/dL 0.55-1.02 [facility] Comment on above: The validity of the calculated GFR & GFRAA in patients over 70 years has not been determined. Clinical correlation is essential. Serum or plasma thyroid stim ulating hormone (TSH) measurement (units/volume)Ordered By: Candelario Santana on 09-25-2024 TSH Qn 5.250 uIU/mL High 0.358-3.740 [facility] Serum or plasma urea nitroge n measurement (mass/volume)Ordered By: Candelario Santana on 09-25-2024 Urea nitrogen [Mass/Vol] 15 mg/dL 7-18 [facility] Sodium levelOrdered By: aCndelario Santana on 09-25-2024 Sodium [Moles/Vol] 137 mmol/L 136-145 [facility] Thyroid Stim Hormone (TSH)on 09-25-2024 TSH 5.250 uIU/mL High 0.358-3.740 [facility] Comment on above: Performed By: #### L 100.0100, L502.0250, L501.9520, L506.1000, L500.4100, L500.4050, L501.9985 ####[facility] [address] [place], [address] Total proteinOrdered By: Candelario Santana on 09-25-2024 Protein [Mass/Vol] 7.5 g/dL 6.4-8.2 [facility] Triglycerides measurementOrd ered By: Candelario Santana on 09-25-2024 Triglyceride [Mass/Vol] 114 mg/dL <199 [facility] Comment on above: The drugs N-Acetylcy steine and Metamizole may falsely depress this assay.Serum Triglycerides Reference Interval Normal <150 mg/dL Borderline high 150 - 199 mg/dL High 200 - 499 mg/dL Very High > or = 500 mg/dL Very low density lipoprotein (VLDL) cholesterol measurementOrdered By: Candelario Santana on 09-25-2024 Very low density lipoprotein (VLDL) cholesterol measurement 23 mg/dL 5-40 [facility] Vitamin D,25 Hydroxyon 09-25 Vitamin D 25-OH 26.7 ng/mL Normal [facility] Comment on above: Result Comment: Jojo min D 25(OH) Status Range Deficiency <20 ng/mL (50nmol/L) Insufficiency 20 - 30 ng/mL (50 - 75 nmol/L) Sufficiency 30 - 100 ng/mL (75 - 250 nmol/L) Toxicity >100 ng/mL (>250 nmol/L) Performed By: #### L 100.0100, L502.0250, L501.9520, L506.1000, L500.4100, L500.4050, L501.9985 ####[facility] [address] [place], [address] White blood cell (WBC) count Ordered By: Candelario Santana on 09-25-2024 WBC (Bld) [#/Vol] 8.6 10*3/uL 4.4-11.0 [facility] CBC W/Diff, Automatedon 10-3 -2023 Absolute Lymph 2.31 X10 3/uL Normal 0.83-4.51 [facility] Comment on above: Performed By: #### L 500.4100, L501.9520, L506.1000, L100.0100, L501.9985, L500.4050 ####[facility] [address] [place], [address] Absolute Neut 2.0 X10 3/uL Normal 2.0-7.7 [facility] Comment on above: Performed By: #### L 500.4100, L501.9520, L506.1000, L100.0100, L501.9985, L500.4050 ####[facility] [address] [place], [address] Basophils/100 WBC (Bld) 0.8 % Normal 0-1 [facility] Comment on above: Performed By: #### L 500.4100, L501.9520, L506.1000, L100.0100, L501.9985, L500.4050 ####[facility] [address] [place], [address] Eosinophils/100 WBC (Bld) 3.4 % Normal 0-5 [facility] Comment on above: Performed By: #### L 500.4100, L501.9520, L506.1000, L100.0100, L501.9985, L500.4050 ####[facility] [address] [place], [address] Erythrocyte distribution width (RBC) [Ratio] 14.0 % Normal 11.6-14.6 [facility] Comment on above: Performed By: #### L 500.4100, L501.9520, L506.1000, L100.0100, L501.9985, L500.4050 ####[facility] [address] [place], [address] Hematocrit (Bld) [Volume fraction] 31.8 % Low 37-47 [facility] Comment on above: Performed By: #### L 500.4100, L501.9520, L506.1000, L100.0100, L501.9985, L500.4050 ####[facility] [address] [place], [address] Hemoglobin (Bld) [Mass/Vol] 10.9 g/dL Low 12.0-15.0 [facility] Comment on above: Performed By: #### L 500.4100, L501.9520, L506.1000, L100.0100, L501.9985, L500.4050 ####[facility] [address] [place], [address] IG% 0.200 Normal 0.0-0.9 [facility] Comment on above: Result Comment: IG% - Immature Granulocytes (promyelocytes, myelocytes andmetamyelocytes) > 1% indicates that a LEFT SHIFT is Present. Performed By: #### L 500.4100, L501.9520, L506.1000, L100.0100, L501.9985, L500.4050 ####[facility] [address] [place], [address] Lymphocytes/100 WBC (Bld) 45.8 % High 19-41 [facility] Comment on above: Performed By: #### L 500.4100, L501.9520, L506.1000, L100.0100, L501.9985, L500.4050 ####[facility] [address] [place], [address] MCH (RBC) [Entitic mass] 30.8 pg Normal 27.0-32.0 [facility] Comment on above: Performed By: #### L 500.4100, L501.9520, L506.1000, L100.0100, L501.9985, L500.4050 ####[facility] [address] [place], [address] MCHC (RBC) [Mass/Vol] 34.3 g/dL Normal 32-36 [facility] Comment on above: Performed By: #### L 500.4100, L501.9520, L506.1000, L100.0100, L501.9985, L500.4050 ####[facility] [address] [place], [address] MCV (RBC) [Entitic vol] 89.8 fL Normal 81-99 [facility] Comment on above: Performed By: #### L 500.4100, L501.9520, L506.1000, L100.0100, L501.9985, L500.4050 ####[facility] [address] [place], [address] Monocytes/100 WBC (Bld) 9.5 % Normal 0-10 [facility] Comment on above: Performed By: #### L 500.4100, L501.9520, L506.1000, L100.0100, L501.9985, L500.4050 ####[facility] [address] [place], [address] Neutrophils/100 WBC (Bld) 40.3 % Low 47-70 [facility] Comment on above: Performed By: #### L 500.4100, L501.9520, L506.1000, L100.0100, L501.9985, L500.4050 ####[facility] [address] [place], [address] Nucleated RBC (Bld) [#/Vol] 0 10*3/uL Normal 0-5 [facility] Comment on above: Performed By: #### L 500.4100, L501.9520, L506.1000, L100.0100, L501.9985, L500.4050 ####[facility] [address] [place], [address] Platelet mean volume (Bld) [Entitic vol] 9.8 fL Normal 6.2-12.0 [facility] Comment on above: Performed By: #### L 500.4100, L501.9520, L506.1000, L100.0100, L501.9985, L500.4050 ####[facility] [address] [place], [address] Platelets (Bld) [#/Vol] 190 10*3/uL Normal 150-450 [facility] Comment on above: Performed By: #### L 500.4100, L501.9520, L506.1000, L100.0100, L501.9985, L500.4050 ####[facility] [address] [place], [address] RBC (Bld) [#/Vol] 3.54 10*6/uL Low 4.2-5.4 [facility] Comment on above: Performed By: #### L 500.4100, L501.9520, L506.1000, L100.0100, L501.9985, L500.4050 ####[facility] [address] [place], [address] RDW SD 46.0 fl High 35.1-43.9 [facility] Comment on above: Performed By: #### L 500.4100, L501.9520, L506.1000, L100.0100, L501.9985, L500.4050 ####[facility] [address] [place], [address] WBC (Bld) [#/Vol] 5.0 10*3/uL Normal 4.4-11.0 [facility] Comment on above: Performed By: #### L 500.4100, L501.9520, L506.1000, L100.0100, L501.9985, L500.4050 ####[facility] [address] [place], [address] Comprehensive Metabolic Prof ilon 06-21-2024 Albumin [Mass/Vol] 3.1 g/dL Low 3.2-5.0 [facility] Comment on above: Performed By: #### L 500.4100, L501.9520, L506.1000, L100.0100, L501.9985, L500.4050 ####[facility] [address] [place], [address] Albumin/Globulin [Mass ratio] 0.7 {ratio} Low 0.9-2.4 [facility] Comment on above: Performed By: #### L 500.4100, L501.9520, L506.1000, L100.0100, L501.9985, L500.4050 ####[facility] [address] [place], [address] ALK P 76 U/L Normal 45-117 [facility] Comment on above: Performed By: #### L 500.4100, L501.9520, L506.1000, L100.0100, L501.9985, L500.4050 ####[facility] [address] [place], [address] ALT [Catalytic activity/Vol] 15 U/L Normal 13-56 [facility] Comment on above: Performed By: #### L 500.4100, L501.9520, L506.1000, L100.0100, L501.9985, L500.4050 ####[facility] [address] [place], [address] AST [Catalytic activity/Vol] 24 U/L Normal 15-37 [facility] Comment on above: Performed By: #### L 500.4100, L501.9520, L506.1000, L100.0100, L501.9985, L500.4050 ####[facility] [address] [place], [address] Bilirubin [Mass/Vol] 1.40 mg/dL High 0.20-1.00 [facility] Comment on above: Result Comment: For patients on eltrombopag therapy, use of Dimension [place] TBIL is not recommended. Performed By: #### L 500.4100, L501.9520, L506.1000, L100.0100, L501.9985, L500.4050 ####[facility] [address] [place], [address] BUN/CRE 12.6 RATIO Normal 10-20 [facility] Comment on above: Performed By: #### L 500.4100, L501.9520, L506.1000, L100.0100, L501.9985, L500.4050 ####[facility] [address] [place], [address] CA,Total 9.0 mg/dL Normal 8.5-10.1 [facility] Comment on above: Performed By: #### L 500.4100, L501.9520, L506.1000, L100.0100, L501.9985, L500.4050 ####[facility] [address] [place], [address] Chloride [Moles/Vol] 110 mmol/L High 98-107 [facility] Comment on above: Performed By: #### L 500.4100, L501.9520, L506.1000, L100.0100, L501.9985, L500.4050 ####[facility] [address] [place], [address] CO2 [Moles/Vol] 25.0 mmol/L Normal 21.0-32.0 [facility] Comment on above: Performed By: #### L 500.4100, L501.9520, L506.1000, L100.0100, L501.9985, L500.4050 ####[facility] [address] [place], [address] Creatinine [Mass/Vol] 0.64 mg/dL Normal 0.55-1.02 [facility] Comment on above: Result Comment: The validity of the calculated GFR GFRAA in patients over70 years has not been determined. Clinical correlation isessential. Performed By: #### L 500.4100, L501.9520, L506.1000, L100.0100, L501.9985, L500.4050 ####[facility] [address] [place], [address] EST GFR - AA 117 mL/min Normal >60 [facility] Comment on above: Result Comment: Afri can Gambian GFR Calc Performed By: #### L 500.4100, L501.9520, L506.1000, L100.0100, L501.9985, L500.4050 ####[facility] [address] [place], [address] GAP 5 Normal 5-15 [facility] Comment on above: Performed By: #### L 500.4100, L501.9520, L506.1000, L100.0100, L501.9985, L500.4050 ####[facility] [address] [place], [address] GFR/1.73 sq M.predicted among non-blacks MDRD (S/P/Bld) [Vol rate/Area] 96 mL/min/{1.73_m2} Normal >60 [facility] Comment on above: Result Comment: Non- GFR Calc Performed By: #### L 500.4100, L501.9520, L506.1000, L100.0100, L501.9985, L500.4050 ####[facility] [address] [place], [address] Globulin (S) [Mass/Vol] 4.2 g/dL Normal 2.2-4.2 [facility] Comment on above: Performed By: #### L 500.4100, L501.9520, L506.1000, L100.0100, L501.9985, L500.4050 ####[facility] [address] [place], [address] Glucose [Mass/Vol] 124 mg/dL High 74-106 [facility] Comment on above: Result Comment: Fast ing Glucose result from 100 to 125 mg/dLsuggests IMPAIRED HOMEOSTASIS per A.D.A. criteria. Performed By: #### L 500.4100, L501.9520, L506.1000, L100.0100, L501.9985, L500.4050 ####[facility] [address] [place], [address] Potassium [Moles/Vol] 4.1 mmol/L Normal 3.5-5.1 [facility] Comment on above: Performed By: #### L 500.4100, L501.9520, L506.1000, L100.0100, L501.9985, L500.4050 ####[facility] [address] [place], [address] Sodium [Moles/Vol] 139 mmol/L Normal 136-145 [facility] Comment on above: Performed By: #### L 500.4100, L501.9520, L506.1000, L100.0100, L501.9985, L500.4050 ####[facility] [address] [place], [address] T PROT 7.3 g/dL Normal 6.4-8.2 [facility] Comment on above: Performed By: #### L 500.4100, L501.9520, L506.1000, L100.0100, L501.9985, L500.4050 ####[facility] [address] [place], [address] Urea nitrogen [Mass/Vol] 8 mg/dL Normal 7-18 [facility] Comment on above: Performed By: #### L 500.4100, L501.9520, L506.1000, L100.0100, L501.9985, L500.4050 ####[facility] [address] [place], [address] Hemoglobin A1con 06-21-2024 HbA1c (Bld) [Mass fraction] 6.9 % High 3.8-5.6 [facility] Comment on above: Result Comment: Norm al < 5.7 % Prediabetic 5.7 - 6.4 % Diabetic >or= 6.5 % Please note range changes. Performed By: #### L 500.4100, L501.9520, L506.1000, L100.0100, L501.9985, L500.4050 ####[facility] [address] [place], [address] Lipid Profileon 06-21-2024 Cholesterol [Mass/Vol] 156 mg/dL Normal 200 [facility] Comment on above: Result Comment: <200 mg/dL Desirable 200-240 mg/dL Borderline >240 mg/dL High Risk Performed By: #### L 500.4100, L501.9520, L506.1000, L100.0100, L501.9985, L500.4050 ####[facility] [address] [place], [address] Cholesterol in HDL [Mass/Vol] 50 mg/dL Normal [facility] Comment on above: Result Comment: The drugs N-Acetylcysteine and Metamizole may falselydepress this assay. Reference Range HDL <40 mg/dL Low HDL Cholesterol HDL >or= 60 mg/dL High HDL Cholesterol Performed By: #### L 500.4100, L501.9520, L506.1000, L100.0100, L501.9985, L500.4050 ####[facility] [address] [place], [address] Cholesterol in LDL [Mass/Vol] 88 mg/dL Normal 0-130 [facility] Comment on above: Performed By: #### L 500.4100, L501.9520, L506.1000, L100.0100, L501.9985, L500.4050 ####[facility] [address] [place], [address] Cholesterol in VLDL [Mass/Vol] 18 mg/dL Normal 5-40 [facility] Comment on above: Performed By: #### L 500.4100, L501.9520, L506.1000, L100.0100, L501.9985, L500.4050 ####[facility] [address] [place], [address] Triglyceride [Mass/Vol] 90 mg/dL Normal [facility] Comment on above: Result Comment: The drugs N-Acetylcysteine and Metamizole may falselydepress this assay.Serum Triglycerides Reference Interval Normal <150 mg/dL Borderline high 150 - 199 mg/dL High 200 - 499 mg/dL Very High > or = 500 mg/dL Performed By: #### L 500.4100, L501.9520, L506.1000, L100.0100, L501.9985, L500.4050 ####[facility] [address] [place], [address] Thyroid Stim Hormone (TSH)on 06-21-2024 TSH 1.910 uIU/mL Normal 0.358-3.740 [facility] Comment on above: Performed By: #### L 500.4100, L501.9520, L506.1000, L100.0100, L501.9985, L500.4050 ####[facility] [address] [place], [address] Vitamin D,25 Hydroxyon 06-21 Vitamin D 25-OH 16.8 ng/mL Normal [facility] Comment on above: Result Comment: Jojo min D 25(OH) Status Range Deficiency <20 ng/mL (50nmol/L) Insufficiency 20 - 30 ng/mL (50 - 75 nmol/L) Sufficiency 30 - 100 ng/mL (75 - 250 nmol/L) Toxicity >100 ng/mL (>250 nmol/L) Performed By: #### L 500.4100, L501.9520, L506.1000, L100.0100, L501.9985, L500.4050 ####[facility] [address] [place], [place], [address] Absolute lymphocyte countOrd ered By: Candelario Santana on 12-20-2023 Lymphocytes Auto (Unsp spec) [#/Vol] 2.35 10*3/uL 0.83-4.51 [facility] Automated lymphocyte count a s percentage of total leukocytesOrdered By: Candelario Santana on 12-20-2023 Lymphocytes/100 WBC Auto (Unsp spec) 40.9 % 19-41 [facility] Basophil percentageOrdered B y: Candelario Santana on 12-20-2023 Basophils/100 WBC (Bld) 0.7 % 0-1 [facility] Bilirubin [Mass/Vol] 1.10 mg/dL 0.20-1.00 [facility] Comment on above: For patients on eltr ombopag therapy, use of Dimension [place] TBIL is not recommended. Chloride [Moles/Vol] 107 mmol/L 98-107 [facility] Cholesterol [Mass/Vol] 144 mg/dL <200 [facility] Comment on above: <200 mg/dL Desirable 200-240 mg/dL Borderline >240 mg/dL High Risk Eosinophils/100 WBC (Bld) 2.6 % 0-5 [facility] Glucose [Mass/Vol] 284 mg/dL 74-106 [facility] Comment on above: Glucose result great er than or equal to 200 mg/dLsuggests DIABETES MELLITUS per A.D.A. criteria. Hemoglobin (Bld) [Mass/Vol] 10.6 g/dL 12.0-15.0 [facility] Monocytes/100 WBC (Bld) 9.9 % 0-10 [facility] Neutrophils (Bld) [#/Vol] 2.6 10*3/uL 2.0-7.7 [facility] Neutrophils/100 WBC (Bld) 45.7 % 47-70 [facility] Potassium [Moles/Vol] 3.6 mmol/L 3.5-5.1 [facility] Protein [Mass/Vol] 7.3 g/dL 6.4-8.2 [facility] Sodium [Moles/Vol] 137 mmol/L 136-145 [facility] Triglyceride [Mass/Vol] 106 mg/dL <199 [facility] Comment on above: The drugs N-Acetylcy steine and Metamizole may falsely depress this assay.Serum Triglycerides Reference Interval Normal <150 mg/dL Borderline high 150 - 199 mg/dL High 200 - 499 mg/dL Very High > or = 500 mg/dL WBC (Bld) [#/Vol] 5.7 10*3/uL 4.4-11.0 [facility] Determination of erythrocyte mean corpuscular volume (MCV)Ordered By: Candelario Santana on 12-20-2023 MCV (RBC) [Entitic vol] 87.8 fL 81-99 [facility] Erythrocyte distribution wid th ratioOrdered By: Candelario Santana on 12-20-2023 Erythrocyte distribution width (RBC) [Ratio] 13.1 % 11.6-14.6 [facility] Erythrocyte distribution wid th standard deviationOrdered By: Candelario Sanatna on 12-20-2023 Erythrocyte distribution width (RBC) [Entitic vol] 41.3 fL 35.1-43.9 [facility] Hematocrit Auto (Bld) [Volum e fraction]Ordered By: Candelario Santana on 12-20-2023 Hematocrit (Bld) [Volume fraction] 30.1 % 37-47 [facility] Immature granulocytes/100 WB C Auto (Bld)Ordered By: Candelario Santana on 12-20-2023 Immature granulocytes/100 WBC (Bld) 0.200 % 0.0-0.9 [facility] Comment on above: IG% - Immature Granu locytes (promyelocytes, myelocytes and metamyelocytes) > 1% indicates that a LEFT SHIFT is Present. Laboratory - Chemistry and C hemistry - challengeOrdered By: [facility] Albumin/Globulin [Mass ratio] 0.7 {ratio} 0.9-2.4 [facility] ALP [Catalytic activity/Vol] 83 U/L 45-117 [facility] ALT [Catalytic activity/Vol] 17 U/L 13-56 [facility] Cholesterol in HDL [Mass/Vol] 45 mg/dL >40 [facility] Comment on above: The drugs N-Acetylcy steine and Metamizole may falsely depress this assay. Reference Range HDL <40 mg/dL Low HDL Cholesterol HDL >or= 60 mg/dL High HDL Cholesterol Cholesterol in LDL [Mass/Vol] 78 mg/dL 0-130 [facility] CO2 [Moles/Vol] 25.0 mmol/L 21.0-32.0 [facility] Globulin (S) [Mass/Vol] 4.3 g/dL 2.2-4.2 [facility] Urea nitrogen/Creatinine [Mass ratio] 9.3 mg/mg 10-20 [facility] Laboratory - Hematology and Cell countsOrdered By: [facility] Max on 12-20-2023 MCH (RBC) [Entitic mass] 30.9 pg 27.0-32.0 [facility] MCHC (RBC) [Mass/Vol] 35.2 g/dL 32-36 [facility] Nucleated RBC/100 WBC (Bld) [Ratio] 0 % 0-5 [facility] Platelet mean volume (Bld) [Entitic vol] 9.9 fL 6.2-12.0 [facility] Platelets (Bld) [#/Vol] 183 10*3/uL 150-450 [facility] No Panel InformationOrdered By: Candelario Santana on 12-20-2023 Estimated GFR (MDRD) Amer 96 mL/min >60 [facility] Comment on above: GFR Calc Estimated GFR (MDRD) Non-Af Amer 80 mL/min >60 [facility] Comment on above: Non- GFR Calc Vitamin D 25-Hydroxy 19.3 ng/mL [facility] Comment on above: Vitamin D 25(OH) Sta tus Range Deficiency <20 ng/mL (50nmol/L) Insufficiency 20 - 30 ng/mL (50 - 75 nmol/L) Sufficiency 30 - 100 ng/mL (75 - 250 nmol/L) Toxicity >100 ng/mL (>250 nmol/L) VLDL Cholesterol 21 mg/dL 5-40 [facility] RBC Auto (Bld) [#/Vol]Ordere d By: Candelario Santana on 12-20-2023 RBC (Bld) [#/Vol] 3.43 10*6/uL 4.2-5.4 [facility] Serum or plasma calcium sabino urement (mass/volume)Ordered By: Candelario Santana on 12-20-2023 Calcium [Mass/Vol] 8.5 mg/dL 8.5-10.1 [facility] Serum or plasma creatinine m easurement (mass/volume)Ordered By: Candelario Santana on 12-20-2023 Creatinine [Mass/Vol] 0.75 mg/dL 0.55-1.02 [facility] Comment on above: The validity of the calculated GFR & GFRAA in patients over 70 years has not been determined. Clinical correlation is essential. Serum or plasma thyroid stim ulating hormone (TSH) measurement (units/volume)Ordered By: Candelario Santana on 12-20-2023 TSH Qn 2.06 uIU/mL 0.358-3.74 [facility] Serum or plasma urea nitroge n measurement (mass/volume)Ordered By: Candelario Santana on 12-20-2023 Urea nitrogen [Mass/Vol] 7 mg/dL 7-18 [facility] Thin prep Papanicolaou smear with manual screeningOrdered By: Candelario Santana 12-20-2023 Thin prep Papanicolaou smear with manual screening 3.0 g/dL 3.2-5.0 [facility] Thin prep Papanicolaou smear with manual screening 26 U/L 15-37 [facility] Thin prep Papanicolaou smear with manual screening 5 5-15 [facility] Whole blood hemoglobin A1c/t otal hemoglobin ratio (mass fraction)Ordered By: Candelario Santana on 12-20-2023 HbA1c (Bld) [Mass fraction] 7.2 % 3.8-5.6 [facility] Comment on above: Normal < 5.7 % Predi abetic 5.7 - 6.4 % Diabetic >or= 6.5 % Please note range changes. Absolute lymphocyte countOrd ered By: Candelario Fieldok on 09-21-2023 Lymphocytes Auto (Unsp spec) [#/Vol] 2.70 10*3/uL 0.83-4.51 [facility] Automated lymphocyte count a s percentage of total leukocytesOrdered By: Candelario Max on 09-21-2023 Lymphocytes/100 WBC Auto (Unsp spec) 46.9 % 19-41 [facility] Basophil percentageOrdered B y: Candelario Max on 09-21-2023 Basophils/100 WBC (Bld) 0.7 % 0-1 [facility] Bilirubin [Mass/Vol] 1.00 mg/dL 0.20-1.00 [facility] Comment on above: For patients on eltr ombopag therapy, use of Dim[place] TBIL is not recommended. Chloride [Moles/Vol] 106 mmol/L 98-107 [facility] Cholesterol [Mass/Vol] 154 mg/dL <200 [facility] Comment on above: <200 mg/dL Desirable 200-240 mg/dL Borderline >240 mg/dL High Risk Eosinophils/100 WBC (Bld) 3.1 % 0-5 [facility] Glucose [Mass/Vol] 227 mg/dL 74-106 [facility] Comment on above: Glucose result great er than or equal to 200 mg/dLsuggests DIABETES MELLITUS per A.D.A. criteria. Hemoglobin (Bld) [Mass/Vol] 10.5 g/dL 12.0-15.0 [facility] Monocytes/100 WBC (Bld) 8.5 % 0-10 [facility] Neutrophils (Bld) [#/Vol] 2.3 10*3/uL 2.0-7.7 [facility] Neutrophils/100 WBC (Bld) 40.6 % 47-70 [facility] Potassium [Moles/Vol] 3.6 mmol/L 3.5-5.1 [facility] Protein [Mass/Vol] 7.5 g/dL 6.4-8.2 [facility] Sodium [Moles/Vol] 135 mmol/L 136-145 [facility] Triglyceride [Mass/Vol] 94 mg/dL <199 [facility] Comment on above: The drugs N-Acetylcy steine and Metamizole may falsely depress this assay.Serum Triglycerides Reference Interval Normal <150 mg/dL Borderline high 150 - 199 mg/dL High 200 - 499 mg/dL Very High > or = 500 mg/dL WBC (Bld) [#/Vol] 5.8 10*3/uL 4.4-11.0 [facility] Determination of erythrocyte mean corpuscular volume (MCV)Ordered By: Candelario Santana on 09-21-2023 MCV (RBC) [Entitic vol] 92.0 fL 81-99 [facility] Erythrocyte distribution wid th ratioOrdered By: Candelario Santana 09-21-2023 Erythrocyte distribution width (RBC) [Ratio] 14.6 % 11.6-14.6 [facility] Erythrocyte distribution wid th standard deviationOrdered By: Candelario Santana 09-21-2023 Erythrocyte distribution width (RBC) [Entitic vol] 48.9 fL 35.1-43.9 [facility] Hematocrit Auto (Bld) [Volum e fraction]Ordered By: Candelario Santana 09-21-2023 Hematocrit (Bld) [Volume fraction] 30.9 % 37-47 [facility] High density lipoprotein (HD L) measurementOrdered By: Candelario Santana 09-21-2023 Cholesterol in HDL (Body fld) [Mass/Vol] 41 mg/dL >40 [facility] Comment on above: The drugs N-Acetylcy steine and Metamizole may falsely depress this assay. Reference Range HDL <40 mg/dL Low HDL Cholesterol HDL >or= 60 mg/dL High HDL Cholesterol Immature granulocytes/100 WB C Auto (Bld)Ordered By: Candelario Santana on 09-21-2023 Immature granulocytes/100 WBC (Bld) 0.200 % 0.0-0.9 [facility] Comment on above: IG% - Immature Granu locytes (promyelocytes, myelocytes and metamyelocytes) > 1% indicates that a LEFT SHIFT is Present. Laboratory - Chemistry and C hemistry - challengeOrdered By: Candelario Santana on 09-21-2023 Albumin/Globulin [Mass ratio] 0.7 {ratio} 0.9-2.4 [facility] ALP [Catalytic activity/Vol] 93 U/L 45-117 [facility] ALT [Catalytic activity/Vol] 23 U/L 13-56 [facility] CO2 [Moles/Vol] 22.0 mmol/L 21.0-32.0 [facility] Globulin (S) [Mass/Vol] 4.4 g/dL 2.2-4.2 [facility] Urea nitrogen/Creatinine [Mass ratio] 13.9 mg/mg 10-20 [facility] Laboratory - Hematology and Cell countsOrdered By: Candelario Snatana on 09-21-2023 MCH (RBC) [Entitic mass] 31.3 pg 27.0-32.0 [facility] MCHC (RBC) [Mass/Vol] 34.0 g/dL 32-36 [facility] Nucleated RBC/100 WBC (Bld) [Ratio] 0 % 0-5 [facility] Platelets (Bld) [#/Vol] 185 10*3/uL 150-450 [facility] Low density lipoprotein (LDL ) cholesterol measurementOrdered By: Candelario Santana on 09-21-2023 Cholesterol in LDL (Body fld) [Moles/Vol] 94 mg/dL 0-130 [facility] No Panel InformationOrdered By: Candelario Santana on 09-21-2023 Estimated GFR (MDRD) Amer 101 mL/min >60 [facility] Comment on above: GFR Calc Estimated GFR (MDRD) Non-Af Amer 84 mL/min >60 [facility] Comment on above: Non- GFR Calc Vitamin D 25-Hydroxy 27.7 ng/mL [facility] Comment on above: Vitamin D 25(OH) Sta tus Range Deficiency <20 ng/mL (50nmol/L) Insufficiency 20 - 30 ng/mL (50 - 75 nmol/L) Sufficiency 30 - 100 ng/mL (75 - 250 nmol/L) Toxicity >100 ng/mL (>250 nmol/L) Platelet mean volume Hua-Ec ker (Bld) [Entitic vol]Ordered By: Candelario Santana on 09-21-2023 Platelet mean volume (Bld) [Entitic vol] 9.8 fL 6.2-12.0 [facility] RBC Auto (Bld) [#/Vol]Ordere d By: Candelario Santana on 09-21-2023 RBC (Bld) [#/Vol] 3.36 10*6/uL 4.2-5.4 [facility] Serum or plasma calcium sabino urement (mass/volume)Ordered By: Candelario Santana 09-21-2023 Calcium [Mass/Vol] 8.9 mg/dL 8.5-10.1 [facility] Serum or plasma creatinine m easurement (mass/volume)Ordered By: Candelario Santana 09-21-2023 Creatinine [Mass/Vol] 0.72 mg/dL 0.55-1.02 [facility] Comment on above: The validity of the calculated GFR & GFRAA in patients over 70 years has not been determined. Clinical correlation is essential. Serum or plasma thyroid stim ulating hormone (TSH) measurement (units/volume)Ordered By: Candelario Santana 09-21-2023 TSH Qn 2.20 uIU/mL 0.358-3.74 [facility] Serum or plasma urea nitroge n measurement (mass/volume)Ordered By: Candelario Santana 09-21-2023 Urea nitrogen [Mass/Vol] 10 mg/dL 7-18 [facility] Thin prep Papanicolaou smear with manual screeningOrdered By: Candelario Santana 09-21-2023 Thin prep Papanicolaou smear with manual screening 3.1 g/dL 3.2-5.0 [facility] Thin prep Papanicolaou smear with manual screening 29 U/L 15-37 [facility] Thin prep Papanicolaou smear with manual screening 7 5-15 [facility] Very low density lipoprotein (VLDL) cholesterol measurementOrdered By: Candelario Santana 09-21-2023 Cholesterol in VLDL Calc [Moles/Vol] 19 mg/dL 5-40 [facility] Absolute lymphocyte countOrd ered By: Candelario Santana on 06-15-2023 Lymphocytes Auto (Unsp spec) [#/Vol] 3.02 10*3/uL 0.83-4.51 [facility] Basophil percentageOrdered B y: Candelario Santana on 06-15-2023 Basophils/100 WBC (Bld) 0.7 % 0-1 [facility] Bilirubin [Mass/Vol] 1.30 mg/dL 0.20-1.00 [facility] Comment on above: For patients on eltr ombopag therapy, use of Dimension [place] TBIL is not recommended. Chloride [Moles/Vol] 105 mmol/L 98-107 [facility] Cholesterol [Mass/Vol] 198 mg/dL <200 [facility] Comment on above: <200 mg/dL Desirable 200-240 mg/dL Borderline >240 mg/dL High Risk Eosinophils/100 WBC (Bld) 2.8 % 0-5 [facility] Glucose [Mass/Vol] 385 mg/dL 74-106 [facility] Comment on above: Glucose result great er than or equal to 200 mg/dLsuggests DIABETES MELLITUS per A.D.A. criteria. Neutrophils (Bld) [#/Vol] 3.5 10*3/uL 2.0-7.7 [facility] Neutrophils/100 WBC (Bld) 46.3 % 47-70 [facility] Potassium [Moles/Vol] 3.5 mmol/L 3.5-5.1 [facility] Protein [Mass/Vol] 7.7 g/dL 6.4-8.2 [facility] Sodium [Moles/Vol] 135 mmol/L 136-145 [facility] Triglyceride [Mass/Vol] 93 mg/dL <199 [facility] Comment on above: The drugs N-Acetylcy steine and Metamizole may falsely depress this assay.Serum Triglycerides Reference Interval Normal <150 mg/dL Borderline high 150 - 199 mg/dL High 200 - 499 mg/dL Very High > or = 500 mg/dL WBC (Bld) [#/Vol] 7.6 10*3/uL 4.4-11.0 [facility] Blood erythrocytes count (nu mber/volume)Ordered By: Candelario Santana on 06-15-2023 RBC (Bld) [#/Vol] 3.94 10*6/uL 4.2-5.4 [facility] Blood hemoglobin measurement (mass/volume)Ordered By: Candelario Santana on 06-15-2023 Hemoglobin (Bld) [Mass/Vol] 12.0 g/dL 12.0-15.0 [facility] Blood lymphocytes/100 leukoc ytesOrdered By: Candelario Santana on 06-15-2023 Lymphocytes/100 WBC (Bld) 39.7 % 19-41 [facility] Blood monocytes/100 leukocyt esOrdered By: [facility] Max on 06-15-2023 Monocytes/100 WBC (Bld) 10.2 % 0-10 [facility] Blood platelet mean volumeOr dered By: Candelario Santana on 06-15-2023 Platelet mean volume (Bld) [Entitic vol] 10.2 fL 6.2-12.0 [facility] Determination of erythrocyte mean corpuscular volume (MCV)Ordered By: Candelario Santana on 06-15-2023 MCV (RBC) [Entitic vol] 87.6 fL 81-99 [facility] Hematocrit Auto (Bld) [Volum e fraction]Or[facility]: [facility] Hematocrit (Bld) [Volume fraction] 34.5 % 37-47 [facility] Laboratory - Chemistry and C hemistry - challengeOrdered By: [facility]23 ALP [Catalytic activity/Vol] 99 U/L 45-117 [facility] ALT [Catalytic activity/Vol] 18 U/L 13-56 [facility] CO2 [Moles/Vol] 18.0 mmol/L 21.0-32.0 [facility] Globulin (S) [Mass/Vol] 4.6 g/dL 2.2-4.2 [facility] Urea nitrogen/Creatinine [Mass ratio] 13.8 mg/mg 10-20 [facility] Laboratory - Hematology and Cell countsOrdered By: Candelario Santana on 06-15-2023 Erythrocyte distribution width (RBC) [Entitic vol] 42.4 fL 35.1-43.9 [facility] Erythrocyte distribution width (RBC) [Ratio] 13.2 % 11.6-14.6 [facility] Immature granulocytes/100 WBC (Bld) 0.300 % 0.0-0.9 [facility] Comment on above: IG% - Immature Granu locytes (promyelocytes, myelocytes and metamyelocytes) > 1% indicates that a LEFT SHIFT is Present. MCH (RBC) [Entitic mass] 30.5 pg 27.0-32.0 [facility] Nucleated RBC/100 WBC (Bld) [Ratio] 0 % 0-5 [facility] MCHC Auto (RBC) [Mass/Vol]Or dered By: Candelario Santana on 06-15-2023 MCHC (RBC) [Mass/Vol] 34.8 g/dL 32-36 [facility] No Panel InformationOrdered By: Candelario Santana on 06-15-2023 Estimated GFR (MDRD) Amer 90 mL/min >60 [facility] Comment on above: GFR Calc Estimated GFR (MDRD) Non-Af Amer 74 mL/min >60 [facility] Comment on above: Non- GFR Calc Thyroid Stimulating Hormone (TSH) 5.09 uIU/mL 0.358-3.74 [facility] Vitamin D 25-Hydroxy 27.0 ng/mL [facility] Comment on above: Vitamin D 25(OH) Sta tus Range Deficiency <20 ng/mL (50nmol/L) Insufficiency 20 - 30 ng/mL (50 - 75 nmol/L) Sufficiency 30 - 100 ng/mL (75 - 250 nmol/L) Toxicity >100 ng/mL (>250 nmol/L) Platelets bldOrdered By: Candelario Santana on 06-15-2023 Platelets (Bld) [#/Vol] 223 10*3/uL 150-450 [facility] Serum or plasma albumin sabino urement (mass/volume)Ordered By: Candelario Santana on 06-15-2023 Albumin [Mass/Vol] 3.1 g/dL 3.2-5.0 [facility] Serum or plasma albumin/glob ulin mass ratioOrdered By: Candelario Santana on 06-15-2023 Albumin/Globulin [Mass ratio] 0.7 {ratio} 0.9-2.4 [facility] Serum or plasma calcium sabino urement (mass/volume)Ordered By: Candelario Santana on 06-15-2023 Calcium [Mass/Vol] 8.3 mg/dL 8.5-10.1 [facility] Serum or plasma cholesterol in HDL measurement (mass/volume)Ordered By: Candelario Santana on 06-15-2023 Cholesterol in HDL [Mass/Vol] 54 mg/dL >40 [facility] Comment on above: The drugs N-Acetylcy steine and Metamizole may falsely depress this assay. Reference Range HDL <40 mg/dL Low HDL Cholesterol HDL >or= 60 mg/dL High HDL Cholesterol Serum or plasma cholesterol in VLDL measurement (mass/volume)Ordered By: Candelario Santana on 06-15-2023 Cholesterol in VLDL [Mass/Vol] 19 mg/dL 5-40 [facility] Serum or plasma creatinine m easurement (mass/volume)Ordered By: Candelario Santana on 06-15-2023 Creatinine [Mass/Vol] 0.80 mg/dL 0.55-1.02 [facility] Comment on above: The validity of the calculated GFR & GFRAA in patients over 70 years has not been determined. Clinical correlation is essential. Serum or plasma low density lipoprotein (LDL) cholesterol measurement (mass/volume)Ordered By: Candelario Santana on 06-15-2023 Cholesterol in LDL [Mass/Vol] 125 mg/dL 0-130 [facility] Serum or plasma urea nitroge n measurement (mass/volume)Ordered By: Candelario Santana 06-15-2023 Urea nitrogen [Mass/Vol] 11 mg/dL 7-18 [facility] Thin prep Papanicolaou smear with manual screeningOrdered By: Candelario Santana 06-15-2023 Thin prep Papanicolaou smear with manual screening 21 U/L 15-37 [facility] Thin prep Papanicolaou smear with manual screening 12 5-15 [facility] Absolute lymphocyte countOrd ered By: Candelario Santana on 03-17-2023 Lymphocytes Auto (Unsp spec) [#/Vol] 2.32 10*3/uL 0.83-4.51 [facility] Basophil percentageOrdered B y: Candelario Santana on 03-17-2023 Basophils/100 WBC (Bld) 0.7 % 0-1 [facility] Bilirubin [Mass/Vol] 1.50 mg/dL 0.20-1.00 [facility] Comment on above: For patients on eltr ombopag therapy, use of [place] TBIL is not recommended. Chloride [Moles/Vol] 104 mmol/L 98-107 [facility] Cholesterol [Mass/Vol] 163 mg/dL <200 [facility] Comment on above: <200 mg/dL Desirable 200-240 mg/dL Borderline >240 mg/dL High Risk Eosinophils/100 WBC (Bld) 2.2 % 0-5 [facility] Glucose [Mass/Vol] 289 mg/dL 74-106 [facility] Comment on above: Glucose result great er than or equal to 200 mg/dLsuggests DIABETES MELLITUS per A.D.A. criteria. Neutrophils (Bld) [#/Vol] 2.9 10*3/uL 2.0-7.7 [facility] Neutrophils/100 WBC (Bld) 48.9 % 47-70 [facility] Potassium [Moles/Vol] 4.2 mmol/L 3.5-5.1 [facility] Protein [Mass/Vol] 7.4 g/dL 6.4-8.2 [facility] Sodium [Moles/Vol] 134 mmol/L 136-145 [facility] Triglyceride [Mass/Vol] 102 mg/dL <199 [facility] Comment on above: The drugs N-Acetylcy steine and Metamizole may falsely depress this assay.Serum Triglycerides Reference Interval Normal <150 mg/dL Borderline high 150 - 199 mg/dL High 200 - 499 mg/dL Very High > or = 500 mg/dL WBC (Bld) [#/Vol] 6.0 10*3/uL 4.4-11.0 [facility] Blood erythrocytes count (nu mber/volume)Ordered By: Candelario Santana on 03-17-2023 RBC (Bld) [#/Vol] 3.78 10*6/uL 4.2-5.4 [facility] Blood hemoglobin measurement (mass/volume)Ordered By: Candelario Santana on 03-17-2023 Hemoglobin (Bld) [Mass/Vol] 11.5 g/dL 12.0-15.0 [facility] Blood lymphocytes/100 leukoc ytesOrdered By: Candelario Santana on 03-17-2023 Lymphocytes/100 WBC (Bld) 38.7 % 19-41 [facility] Blood monocytes/100 leukocyt esOrdered By: [facility] on 03-17-2023 Monocytes/100 WBC (Bld) 9.0 % 0-10 [facility] Blood platelet mean volumeOr dered By: [facility] on 03-17-2023 Platelet mean volume (Bld) [Entitic vol] 10.3 fL 6.2-12.0 [facility] Determination of erythrocyte mean corpuscular volume (MCV)Ordered By: [facility] on 03-17-2023 MCV (RBC) [Entitic vol] 93.1 fL 81-99 [facility] Hematocrit Auto (Bld) [Volum e fraction]Ordered By: [facility] 03-17-2023 Hematocrit (Bld) [Volume fraction] 35.2 % 37-47 [facility] Laboratory - Chemistry and C hemistry - challengeOrdered By: [facility] 03-17-2023 ALP [Catalytic activity/Vol] 162 U/L 45-117 [facility] ALT [Catalytic activity/Vol] 48 U/L 13-56 [facility] CO2 [Moles/Vol] 22.0 mmol/L 21.0-32.0 [facility] Globulin (S) [Mass/Vol] 4.4 g/dL 2.2-4.2 [facility] Urea nitrogen/Creatinine [Mass ratio] 10.3 mg/mg 10-20 [facility] Laboratory - Hematology and Cell countsOrdered By: [facility] 03-17-2023 Erythrocyte distribution width (RBC) [Entitic vol] 46.0 fL 35.1-43.9 [facility] Erythrocyte distribution width (RBC) [Ratio] 13.5 % 11.6-14.6 [facility] Immature granulocytes/100 WBC (Bld) 0.500 % 0.0-0.9 [facility] Comment on above: IG% - Immature Granu locytes (promyelocytes, myelocytes and metamyelocytes) > 1% indicates that a LEFT SHIFT is Present. MCH (RBC) [Entitic mass] 30.4 pg 27.0-32.0 [facility] Nucleated RBC/100 [facility] (Bld) [[facility]] 0 [facility] [Mass/Vol]Or dered By: Candelario Santana on 03-17-2023 MCHC (RBC) [Mass/Vol] 32.7 g/dL 32-36 [facility] No Panel InformationOrdered By: Candelario Santana on 03-17-2023 Estimated GFR (MDRD) Amer 93 mL/min >60 [facility] Comment on above: GFR Calc Estimated GFR (MDRD) Non-Af Amer 77 mL/min >60 [facility] Comment on above: Non- GFR Calc Thyroid Stimulating Hormone (TSH) 3.35 uIU/mL 0.358-3.74 [facility] Vitamin D 25-Hydroxy 21.8 ng/mL [facility] Comment on above: Vitamin D 25(OH) Sta tus Range Deficiency <20 ng/mL (50nmol/L) Insufficiency 20 - 30 ng/mL (50 - 75 nmol/L) Sufficiency 30 - 100 ng/mL (75 - 250 nmol/L) Toxicity >100 ng/mL (>250 nmol/L) Platelets bldOrdered By: Candelario Santana on 03-17-2023 Platelets (Bld) [#/Vol] 252 10*3/uL 150-450 [facility] Serum or plasma albumin sabino urement (mass/volume)Ordered By: Candelario Santana 03-17-2023 Albumin [Mass/Vol] 3.0 g/dL 3.2-5.0 [facility] Serum or plasma albumin/glob ulin mass ratioOrdered By: Candelario Santana 03-17-2023 Albumin/Globulin [Mass ratio] 0.7 {ratio} 0.9-2.4 [facility] Serum or plasma calcium sabino urement (mass/volume)Ordered By: Candelario Santana 03-17-2023 Calcium [Mass/Vol] 8.8 mg/dL 8.5-10.1 [facility] Serum or plasma cholesterol in HDL measurement (mass/volume)Ordered By: Candelario Santana 03-17-2023 Cholesterol in HDL [Mass/Vol] 36 mg/dL >40 [facility] Comment on above: The drugs N-Acetylcy steine and Metamizole may falsely depress this assay. Reference Range HDL <40 mg/dL Low HDL Cholesterol HDL >or= 60 mg/dL High HDL Cholesterol Serum or plasma cholesterol in VLDL measurement (mass/volume)Ordered By: Candelario Santana on 03-17-2023 Cholesterol in VLDL [Mass/Vol] 20 mg/dL 5-40 [facility] Serum or plasma creatinine m easurement (mass/volume)Ordered By: Candelario Santana on 03-17-2023 Creatinine [Mass/Vol] 0.77 mg/dL 0.55-1.02 [facility] Comment on above: The validity of the calculated GFR & GFRAA in patients over 70 years has not been determined. Clinical correlation is essential. Serum or plasma low density lipoprotein (LDL) cholesterol measurement (mass/volume)Ordered By: Candelario Santana on 03-17-2023 Cholesterol in LDL [Mass/Vol] 107 mg/dL 0-130 [facility] Serum or plasma urea nitroge n measurement (mass/volume)Ordered By: Candelario Santana on 03-17-2023 Urea nitrogen [Mass/Vol] 8 mg/dL 7-18 [facility] Thin prep Papanicolaou smear with manual screeningOrdered By: Candelario Santana on 03-17-2023 Thin prep Papanicolaou smear with manual screening 41 U/L 15-37 [facility] Thin prep Papanicolaou smear with manual screening 8 5-15 [facility] Absolute lymphocyte countOrd ered By: Dr. Santana on 12-21-2022 Lymphocytes Auto (Unsp spec) [#/Vol] 2.70 10*3/uL 0.83-4.51 [facility] Basophil percentageOrdered B y: Dr. Santana on 12-21-2022 Basophils/100 WBC (Bld) 0.7 % 0-1 [facility] Eosinophils/100 WBC (Bld) 3.6 % 0-5 [facility] Neutrophils (Bld) [#/Vol] 3.4 10*3/uL 2.0-7.7 [facility] Neutrophils/100 WBC (Bld) 46.8 % 47-70 [facility] WBC (Bld) [#/Vol] 7.3 10*3/uL 4.4-11.0 [facility] Blood erythrocytes count (nu mber/volume)Ordered By: Dr. Santana on 12-21-2022 RBC (Bld) [#/Vol] 3.57 10*6/uL 4.2-5.4 [facility] Blood hemoglobin measurement (mass/volume)Ordered By: Dr. Santana on 12-21-2022 Hemoglobin (Bld) [Mass/Vol] 11.0 g/dL 12.0-15.0 [facility] Blood lymphocytes/100 leukoc ytesOrdered By: Dr. Santana on 12-21-2022 Lymphocytes/100 WBC (Bld) 36.9 % 19-41 [facility] Blood monocytes/100 leukocyt esOrdered By: Dr. Santana on 12-21-2022 Monocytes/100 WBC (Bld) 11.7 % 0-10 [facility] Blood platelet mean volumeOr dered By: Dr. Santana on 12-21-2022 Platelet mean volume (Bld) [Entitic vol] 9.7 fL 6.2-12.0 [facility] Determination of erythrocyte mean corpuscular volume (MCV)Ordered By: Dr. Santana on 12-21-2022 MCV (RBC) [Entitic vol] 92.4 fL 81-99 [facility] Hematocrit Auto (Bld) [Volum e fraction]Ordered By: Dr. Santana on 12-21-2022 Hematocrit (Bld) [Volume fraction] 33.0 % 37-47 [facility] Hemoglobin in reticulocytes (mass per reticulocyte)Ordered By: Dr. Santana on 12-21-2022 Hemoglobin (Reticulocytes) [Entitic mass] 34.2 pg 30-35 [facility] Iron measurement (mass/mass) Ordered By: Dr. Santana on 12-21-2022 Iron (Unsp spec) [Mass/Mass] 61 ug/dL 50-170 [facility] Laboratory - Chemistry and C hemistry - challengeOrdered By: Dr. Santana on 12-21-2022 Cobalamin (Vitamin B12) [Mass/Vol] 312 pg/mL 211-911 [facility] - Hematology and Cell countsOrdered By: Dr. Santana on 12-21-2022 Erythrocyte distribution width (RBC) [Entitic vol] 46.0 fL 35.1-43.9 [facility] Erythrocyte distribution width (RBC) [Ratio] 13.5 % 11.6-14.6 [facility] Immature granulocytes/100 WBC (Bld) 0.300 % 0.0-0.9 [facility] Comment on above: IG% - Immature Granu locytes (promyelocytes, myelocytes and metamyelocytes) > 1% indicates that a LEFT SHIFT is Present. MCH (RBC) [Entitic mass] 30.8 pg 27.0-32.0 [facility] Nucleated RBC/100 WBC (Bld) [Ratio] 0 % 0-5 [facility] MCHC Auto (RBC) [Mass/Vol]Or dered By: Dr. Santana on 12-21-2022 MCHC (RBC) [Mass/Vol] 33.3 g/dL 32-36 [facility] No Panel InformationOrdered By: Dr. Santana on 12-21-2022 Immature Reticulocyte Fraction 6.10 % 3.00-15.90 [facility] Reticulocyte Count 1.63 % 0.5-1.5 [facility] Total Iron Binding Capacity 295 ug/dL 250-450 [facility] Platelets bldOrdered By: Dr. Santana on 12-21-2022 Platelets (Bld) [#/Vol] 234 10*3/uL 150-450 [facility] Serum or plasma ferritin uzma surement (mass/volume)Ordered By: Dr. Santana on 12-21-2022 Ferritin [Mass/Vol] 32 ng/mL 8-252 [facility] Serum or plasma folate measu rement (mass/volume)Ordered By: Dr. Santana on 12-21-2022 Folate [Mass/Vol] 18.50 ng/mL 3.1-55.4 [facility] Serum or plasma iron saturat ion measurement (mass fraction)Ordered By: Dr. Santana on 12-21-2022 Iron saturation [Mass fraction] 20.7 % 15.0-55.0 [facility] Absolute lymphocyte countOrd ered By: Dr. Santana on 12-16-2022 Lymphocytes Auto (Unsp spec) [#/Vol] 2.52 10*3/uL 0.83-4.51 [facility] Basophil percentageOrdered B y: Dr. Santana on 12-16-2022 Basophils/100 WBC (Bld) 0.6 % 0-1 [facility] Bilirubin [Mass/Vol] 0.90 mg/dL 0.20-1.00 [facility] Comment on above: For patients on eltr ombopag therapy, use of [place] TBIL is not recommended. Chloride [Moles/Vol] 107 mmol/L 98-107 [facility] Cholesterol [Mass/Vol] 191 mg/dL <200 [facility] Comment on above: <200 mg/dL Desirable 200-240 mg/dL Borderline >240 mg/dL High Risk Eosinophils/100 WBC (Bld) 4.2 % 0-5 [facility] Glucose [Mass/Vol] 202 mg/dL 74-106 [facility] Comment on above: Glucose result great er than or equal to 200 mg/dLsuggests DIABETES MELLITUS per A.D.A. criteria. Neutrophils (Bld) [#/Vol] 2.7 10*3/uL 2.0-7.7 [facility] Neutrophils/100 WBC (Bld) 43.9 % 47-70 [facility] Potassium [Moles/Vol] 3.9 mmol/L 3.5-5.1 [facility] Protein [Mass/Vol] 7.6 g/dL 6.4-8.2 [facility] Sodium [Moles/Vol] 134 mmol/L 136-145 [facility] Triglyceride [Mass/Vol] 96 mg/dL <199 [facility] Comment on above: The drugs N-Acetylcy steine and Metamizole may falsely depress this assay.Serum Triglycerides Reference Interval Normal <150 mg/dL Borderline high 150 - 199 mg/dL High 200 - 499 mg/dL Very High > or = 500 mg/dL WBC (Bld) [#/Vol] 6.2 10*3/uL 4.4-11.0 [facility] Blood erythrocytes count (nu mber/volume)Ordered By: Dr. Santana on 12-16-2022 RBC (Bld) [#/Vol] 3.36 10*6/uL 4.2-5.4 [facility] Blood hemoglobin measurement (mass/volume)Ordered By: Dr. Santana on 12-16-2022 Hemoglobin (Bld) [Mass/Vol] 10.4 g/dL 12.0-15.0 [facility] Blood lymphocytes/100 leukoc ytesOrdered By: Dr. Santana on 12-16-2022 Lymphocytes/100 WBC (Bld) 40.4 % 19-41 [facility] Blood monocytes/100 leukocyt esOrdered By: Dr. Santana on 12-16-2022 Monocytes/100 WBC (Bld) 10.7 % 0-10 [facility] Blood platelet mean volumeOr dered By: Dr. Santana on 12-16-2022 Platelet mean volume (Bld) [Entitic vol] 9.8 fL 6.2-12.0 [facility] Determination of erythrocyte mean corpuscular volume (MCV)Ordered By: Dr. Santana on 12-16-2022 MCV (RBC) [Entitic vol] 90.2 fL 81-99 [facility] Hematocrit Auto (Bld) [Volum e fraction]Ordered By: Dr. Santana on 12-16-2022 Hematocrit (Bld) [Volume fraction] 30.3 % 37-47 [facility] Laboratory - Chemistry and C hemistry - challengeOrdered By: Dr. Santana on 12-16-2022 ALP [Catalytic activity/Vol] 66 U/L 45-117 [facility] ALT [Catalytic activity/Vol] 17 U/L 13-56 [facility] CO2 [Moles/Vol] 22.0 mmol/L 21.0-32.0 [facility] Globulin (S) [Mass/Vol] 4.4 g/dL 2.2-4.2 [facility] Urea nitrogen/Creatinine [Mass ratio] 12.8 mg/mg 10-20 [facility] Laboratory - Hematology and Cell countsOrdered By: Dr. Santana on 12-16-2022 Erythrocyte distribution width (RBC) [Entitic vol] 44.2 fL 35.1-43.9 [facility] Erythrocyte distribution width (RBC) [Ratio] 13.6 % 11.6-14.6 [facility] Immature granulocytes/100 WBC (Bld) 0.200 % 0.0-0.9 [facility] Comment on above: IG% - Immature Granu locytes (promyelocytes, myelocytes and metamyelocytes) > 1% indicates that a LEFT SHIFT is Present. MCH (RBC) [Entitic mass] 31.0 pg 27.0-32.0 [facility] Nucleated RBC/100 WBC (Bld) [Ratio] 0 % 0-5 [facility] MCHC Auto (RBC) [Mass/Vol]Or dered By: Dr. Santana on 12-16-2022 MCHC (RBC) [Mass/Vol] 34.3 g/dL 32-36 [facility] No Panel InformationOrdered By: Dr. Santana on 12-16-2022 Estimated GFR (MDRD) Amer 92 mL/min >60 [facility] Comment on above: GFR Calc Estimated GFR (MDRD) Non-Af Amer 76 mL/min >60 [facility] Comment on above: Non- GFR Calc Thyroid Stimulating Hormone (TSH) 0.64 uIU/mL 0.358-3.74 [facility] Vitamin D 25-Hydroxy 37.9 ng/mL [facility] Comment on above: Vitamin D 25(OH) Sta tus Range Deficiency <20 ng/mL (50nmol/L) Insufficiency 20 - 30 ng/mL (50 - 75 nmol/L) Sufficiency 30 - 100 ng/mL (75 - 250 nmol/L) Toxicity >100 ng/mL (>250 nmol/L) Platelets bldOrdered By: Dr. Santana on 12-16-2022 Platelets (Bld) [#/Vol] 212 10*3/uL 150-450 [facility] Serum or plasma albumin sabino urement (mass/volume)Ordered By: Dr. Santana on 12-16-2022 Albumin [Mass/Vol] 3.2 g/dL 3.2-5.0 [facility] Serum or plasma albumin/glob ulin mass ratioOrdered By: Dr. Santana on 12-16-2022 Albumin/Globulin [Mass ratio] 0.7 {ratio} 0.9-2.4 [facility] Serum or plasma calcium sabino urement (mass/volume)Ordered By: Dr. Santana on 12-16-2022 Calcium [Mass/Vol] 8.7 mg/dL 8.5-10.1 [facility] Serum or plasma cholesterol in HDL measurement (mass/volume)Ordered By: Dr. Santana on 12-16-2022 Cholesterol in HDL [Mass/Vol] 50 mg/dL >40 [facility] Comment on above: The drugs N-Acetylcy steine and Metamizole may falsely depress this assay. Reference Range HDL <40 mg/dL Low HDL Cholesterol HDL >or= 60 mg/dL High HDL Cholesterol Serum or plasma cholesterol in VLDL measurement (mass/volume)Ordered By: Dr. Santana on 12-16-2022 Cholesterol in VLDL [Mass/Vol] 19 mg/dL 5-40 [facility] Serum or plasma creatinine m easurement (mass/volume)Ordered By: Dr. Santana on 12-16-2022 Creatinine [Mass/Vol] 0.78 mg/dL 0.55-1.02 [facility] Comment on above: The validity of the calculated GFR & GFRAA in patients over 70 years has not been determined. Clinical correlation is essential. Serum or plasma low density lipoprotein (LDL) cholesterol measurement (mass/volume)Ordered By: Dr. Santana on 12-16-2022 Cholesterol in LDL [Mass/Vol] 122 mg/dL 0-130 [facility] Serum or plasma urea nitroge n measurement (mass/volume)Ordered By: Dr. Santana on 12-16-2022 Urea nitrogen [Mass/Vol] 10 mg/dL 7-18 [facility] Thin prep Papanicolaou smear with manual screeningOrdered By: Dr. Santana on 12-16-2022 Thin prep Papanicolaou smear with manual screening 25 U/L 15-37 [facility] Thin prep Papanicolaou smear with manual screening 5 5-15 [facility] Glucose Glucometer (BldC) [M ass/Vol]Ordered By: Antony Tran on 11-24-2022 Glucose [Mass/Vol] 182 mg/dL 74-106 [facility] Comment on above: MANAGEMENT OF PATIEN T CARE PER NURSING PROTOCOL Absolute lymphocyte countOrd ered By: Candelario Santana on 09-16-2022 Lymphocytes Auto (Unsp spec) [#/Vol] 2.69 10*3/uL 0.83-4.51 [facility] Basophil percentageOrdered B y: Candelario Santana on 09-16-2022 Basophils/100 WBC (Bld) 0.5 % 0-1 [facility] Bilirubin [Mass/Vol] 1.10 mg/dL 0.20-1.00 [facility] Comment on above: For patients on eltr ombopag therapy, use of [place] TBIL is not recommended. Chloride [Moles/Vol] 100 mmol/L 98-107 [facility] Cholesterol [Mass/Vol] 179 mg/dL <200 [facility] Comment on above: <200 mg/dL Desirable 200-240 mg/dL Borderline >240 mg/dL High Risk Eosinophils/100 WBC (Bld) 2.7 % 0-5 [facility] Glucose [Mass/Vol] 374 mg/dL 74-106 [facility] Comment on above: Glucose result great er than or equal to 200 mg/dLsuggests DIABETES MELLITUS per A.D.A. criteria. Neutrophils (Bld) [#/Vol] 3.8 10*3/uL 2.0-7.7 [facility] Neutrophils/100 WBC (Bld) 50.5 % 47-70 [facility] Potassium [Moles/Vol] 3.5 mmol/L 3.5-5.1 [facility] Protein [Mass/Vol] 7.4 g/dL 6.4-8.2 [facility] Sodium [Moles/Vol] 135 mmol/L 136-145 [facility] Triglyceride [Mass/Vol] 89 mg/dL <199 [facility] Comment on above: The drugs N-Acetylcy steine and Metamizole may falsely depress this assay.Serum Triglycerides Reference Interval Normal <150 mg/dL Borderline high 150 - 199 mg/dL High 200 - 499 mg/dL Very High > or = 500 mg/dL WBC (Bld) [#/Vol] 7.5 10*3/uL 4.4-11.0 [facility] Blood erythrocytes count (nu mber/volume)Ordered By: Candelario Santana on 09-16-2022 RBC (Bld) [#/Vol] 3.82 10*6/uL 4.2-5.4 [facility] Blood hemoglobin measurement (mass/volume)Ordered By: Candelario Santana on 09-16-2022 Hemoglobin (Bld) [Mass/Vol] 11.5 g/dL 12.0-15.0 [facility] Blood lymphocytes/100 leukoc ytesOrdered By: Candelario Santana on 09-16-2022 Lymphocytes/100 WBC (Bld) 36.1 % 19-41 [facility] Blood monocytes/100 leukocyt esOrdered By: Candelario Max on 09-16-2022 Monocytes/100 WBC (Bld) 9.8 % 0-10 [facility] Blood platelet mean volumeOr dered By: Candelario Fieldok on 09-16-2022 Platelet mean volume (Bld) [Entitic vol] 10.4 fL 6.2-12.0 [facility] Determination of erythrocyte mean corpuscular volume (MCV)Ordered By: Candelario Santana on 09-16-2022 MCV (RBC) [Entitic vol] 86.4 fL 81-99 [facility] Hematocrit Auto (Bld) [Volum e fraction][facility] Hematocrit (Bld) [Volume fraction] 33.0 % 37-47 [facility] - Chemistry and C hemistry - challengeOrdered By: [facility] ALP [Catalytic activity/Vol] 81 U/L 45-117 [facility] ALT [Catalytic activity/Vol] 19 U/L 13-56 [facility] CO2 [Moles/Vol] 23.0 mmol/L 21.0-32.0 [facility] Globulin (S) [Mass/Vol] 4.4 g/dL 2.2-4.2 [facility] Urea nitrogen/Creatinine [Mass ratio] 16.9 mg/mg 10-20 [facility] - Hematology and Cell countsOrdered By: Candelario Max 09-16-2022 Erythrocyte distribution width (RBC) [Entitic vol] 40.5 fL 35.1-43.9 [facility] Erythrocyte distribution width (RBC) [Ratio] 13.2 % 11.6-14.6 [facility] Immature granulocytes/100 WBC (Bld) 0.400 % 0.0-0.9 [facility] Comment on above: IG% - Immature Granu locytes (promyelocytes, myelocytes and metamyelocytes) > 1% indicates that a LEFT SHIFT is Present. MCH (RBC) [Entitic mass] 30.1 pg 27.0-32.0 [facility] Nucleated RBC/100 WBC (Bld) [Ratio] 0 % 0-5 [facility] Auto (RBC) [Mass/Vol]Or dered By: Candelario Santana on 09-16-2022 MCHC (RBC) [Mass/Vol] 34.8 g/dL 32-36 [facility] No Panel InformationOrdered By: Candelario Santana on 09-16-2022 Estimated GFR (MDRD) Amer 87 mL/min >60 [facility] Comment on above: GFR Calc Estimated GFR (MDRD) Non-Af Amer 72 mL/min >60 [facility] Comment on above: Non- GFR Calc Thyroid Stimulating Hormone (TSH) 4.20 uIU/mL 0.358-3.74 [facility] Vitamin D 25-Hydroxy 26.7 ng/mL [facility] Comment on above: Vitamin D 25(OH) Sta tus Range Deficiency <20 ng/mL (50nmol/L) Insufficiency 20 - 30 ng/mL (50 - 75 nmol/L) Sufficiency 30 - 100 ng/mL (75 - 250 nmol/L) Toxicity >100 ng/mL (>250 nmol/L) Platelets bldOrdered By: Candelario Santana on 09-16-2022 Platelets (Bld) [#/Vol] 213 10*3/uL 150-450 [facility] Serum or plasma albumin sabino urement (mass/volume)Ordered By: Candelario Santana on 09-16-2022 Albumin [Mass/Vol] 3.0 g/dL 3.2-5.0 [facility] Serum or plasma albumin/glob ulin mass ratioOrdered By: Candelario Santana 09-16-2022 Albumin/Globulin [Mass ratio] 0.7 {ratio} 0.9-2.4 [facility] Serum or plasma calcium sabino urement (mass/volume)Ordered By: Candelario Santana 09-16-2022 Calcium [Mass/Vol] 9.2 mg/dL 8.5-10.1 [facility] Serum or plasma cholesterol in HDL measurement (mass/volume)Ordered By: Candelario Santana on 09-16-2022 Cholesterol in HDL [Mass/Vol] 58 mg/dL >40 [facility] Comment on above: The drugs N-Acetylcy steine and Metamizole may falsely depress this assay. Reference Range HDL <40 mg/dL Low HDL Cholesterol HDL >or= 60 mg/dL High HDL Cholesterol Serum or plasma cholesterol in VLDL measurement (mass/volume)Ordered By: Candelario Santana on 09-16-2022 Cholesterol in VLDL [Mass/Vol] 18 mg/dL 5-40 [facility] Serum or plasma creatinine m easurement (mass/volume)Ordered By: Candelario Santana on 09-16-2022 Creatinine [Mass/Vol] 0.83 mg/dL 0.55-1.02 [facility] Comment on above: The validity of the calculated GFR & GFRAA in patients over 70 years has not been determined. Clinical correlation is essential. Serum or plasma low density lipoprotein (LDL) cholesterol measurement (mass/volume)Ordered By: Candelario Santana on 09-16-2022 Cholesterol in LDL [Mass/Vol] 103 mg/dL 0-130 [facility] Serum or plasma urea nitroge n measurement (mass/volume)Ordered By: Candelario Santana on 09-16-2022 Urea nitrogen [Mass/Vol] 14 mg/dL 7-18 [facility] Thin prep Papanicolaou smear with manual screeningOrdered By: Candelario Santana on 09-16-2022 Thin prep Papanicolaou smear with manual screening 21 U/L 15-37 [facility] Thin prep Papanicolaou smear with manual screening 12 5-15 [facility] Absolute lymphocyte countOrd ered By: Dr. Santana on 07-08-2022 Lymphocytes Auto (Unsp spec) [#/Vol] 1.66 10*3/uL 0.83-4.51 [facility] Basophil percentageOrdered B y: Dr. Santana on 07-08-2022 Basophils/100 WBC (Bld) 0.8 % 0-1 [facility] Bilirubin [Mass/Vol] 1.20 mg/dL 0.20-1.00 [facility] Comment on above: For patients on eltr ombopag therapy, use of [place] TBIL is not recommended. Chloride [Moles/Vol] 104 mmol/L 98-107 [facility] Cholesterol [Mass/Vol] 176 mg/dL <200 [facility] Comment on above: <200 mg/dL Desirable 200-240 mg/dL Borderline >240 mg/dL High Risk Eosinophils/100 WBC (Bld) 9.7 % 0-5 [facility] Glucose [Mass/Vol] 278 mg/dL 74-106 [facility] Comment on above: Glucose result great er than or equal to 200 mg/dLsuggests DIABETES MELLITUS per A.D.A. criteria. Neutrophils (Bld) [#/Vol] 2.5 10*3/uL 2.0-7.7 [facility] Neutrophils/100 WBC (Bld) 48.1 % 47-70 [facility] Potassium [Moles/Vol] 3.4 mmol/L 3.5-5.1 [facility] Protein [Mass/Vol] 7.4 g/dL 6.4-8.2 [facility] Sodium [Moles/Vol] 138 mmol/L 136-145 [facility] Triglyceride [Mass/Vol] 85 mg/dL <199 [facility] Comment on above: The drugs N-Acetylcy steine and Metamizole may falsely depress this assay.Serum Triglycerides Reference Interval Normal <150 mg/dL Borderline high 150 - 199 mg/dL High 200 - 499 mg/dL Very High > or = 500 mg/dL WBC (Bld) [#/Vol] 5.1 10*3/uL 4.4-11.0 [facility] Blood erythrocytes count (nu mber/volume)Ordered By: Dr. Santana on 07-08-2022 RBC (Bld) [#/Vol] 3.75 10*6/uL 4.2-5.4 [facility] Blood hemoglobin measurement (mass/volume)Ordered By: Dr. Santana on 07-08-2022 Hemoglobin (Bld) [Mass/Vol] 11.6 g/dL 12.0-15.0 [facility] Blood lymphocytes/100 leukoc ytesOrdered By: Dr. Santana on 07-08-2022 Lymphocytes/100 WBC (Bld) 32.4 % 19-41 [facility] Blood monocytes/100 leukocyt esOrdered By: Dr. Santana on 07-08-2022 Monocytes/100 WBC (Bld) 8.8 % 0-10 [facility] Blood platelet mean volumeOr dered By: Dr. Santana on 07-08-2022 Platelet mean volume (Bld) [Entitic vol] 10.3 fL 6.2-12.0 [facility] Determination of erythrocyte mean corpuscular volume (MCV)Ordered By: Dr. Santana on 07-08-2022 MCV (RBC) [Entitic vol] 90.1 fL 81-99 [facility] Hematocrit Auto (Bld) [Volum e fraction]Ordered By: Dr. Santana on 07-08-2022 Hematocrit (Bld) [Volume fraction] 33.8 % 37-47 [facility] Laboratory - Chemistry and C hemistry - challengeOrdered By: Dr. Santana on 07-08-2022 ALP [Catalytic activity/Vol] 99 U/L 45-117 [facility] ALT [Catalytic activity/Vol] 16 U/L 13-56 [facility] CO2 [Moles/Vol] 25.0 mmol/L 21.0-32.0 [facility] Globulin (S) [Mass/Vol] 4.3 g/dL 2.2-4.2 [facility] Urea nitrogen/Creatinine [Mass ratio] 11.6 mg/mg 10-20 [facility] Laboratory - Hematology and Cell countsOrdered By: Dr. Santana on 07-08-2022 Erythrocyte distribution width (RBC) [Entitic vol] 46.6 fL 35.1-43.9 [facility] Erythrocyte distribution width (RBC) [Ratio] 14.4 % 11.6-14.6 [facility] Immature granulocytes/100 WBC (Bld) 0.200 % 0.0-0.9 [facility] Comment on above: IG% - Immature Granu locytes (promyelocytes, myelocytes and metamyelocytes) > 1% indicates that a LEFT SHIFT is Present. MCH (RBC) [Entitic mass] 30.9 pg 27.0-32.0 [facility] Nucleated RBC/100 WBC (Bld) [Ratio] 0 % 0-5 [facility] MCHC Auto (RBC) [Mass/Vol]Or dered By: Dr. Santana on 07-08-2022 MCHC (RBC) [Mass/Vol] 34.3 g/dL 32-36 [facility] No Panel InformationOrdered By: Dr. Santana on 07-08-2022 Estimated GFR (MDRD) Amer 125 mL/min >60 [facility] Comment on above: GFR Calc Estimated GFR (MDRD) Non-Af Amer 103 mL/min >60 [facility] Comment on above: Non- GFR Calc Thyroid Stimulating Hormone (TSH) 5.16 uIU/mL 0.358-3.74 [facility] Vitamin D 25-Hydroxy 26.2 ng/mL [facility] Comment on above: Vitamin D 25(OH) Sta tus Range Deficiency <20 ng/mL (50nmol/L) Insufficiency 20 - 30 ng/mL (50 - 75 nmol/L) Sufficiency 30 - 100 ng/mL (75 - 250 nmol/L) Toxicity >100 ng/mL (>250 nmol/L) Platelets bldOrdered By: Dr. Santana on 07-08-2022 Platelets (Bld) [#/Vol] 171 10*3/uL 150-450 [facility] Serum or plasma albumin sabino urement (mass/volume)Ordered By: Dr. Santana on 07-08-2022 Albumin [Mass/Vol] 3.1 g/dL 3.2-5.0 [facility] Serum or plasma albumin/glob ulin mass ratioOrdered By: Dr. Santana on 07-08-2022 Albumin/Globulin [Mass ratio] 0.7 {ratio} 0.9-2.4 [facility] Serum or plasma calcium sabino urement (mass/volume)Ordered By: Dr. Santana on 07-08-2022 Calcium [Mass/Vol] 8.7 mg/dL 8.5-10.1 [facility] Serum or plasma cholesterol in HDL measurement (mass/volume)Ordered By: Dr. Santana on 07-08-2022 Cholesterol in HDL [Mass/Vol] 50 mg/dL >40 [facility] Comment on above: The drugs N-Acetylcy steine and Metamizole may falsely depress this assay. Reference Range HDL <40 mg/dL Low HDL Cholesterol HDL >or= 60 mg/dL High HDL Cholesterol Serum or plasma cholesterol in VLDL measurement (mass/volume)Ordered By: Dr. Santana on 07-08-2022 Cholesterol in VLDL [Mass/Vol] 17 mg/dL 5-40 [facility] Serum or plasma creatinine m easurement (mass/volume)Ordered By: Dr. Santana on 07-08-2022 Creatinine [Mass/Vol] 0.60 mg/dL 0.55-1.02 [facility] Comment on above: The validity of the calculated GFR & GFRAA in patients over 70 years has not been determined. Clinical correlation is essential. Serum or plasma low density lipoprotein (LDL) cholesterol measurement (mass/volume)Ordered By: Dr. Santana on 07-08-2022 Cholesterol in LDL [Mass/Vol] 109 mg/dL 0-130 [facility] Serum or plasma urea nitroge n measurement (mass/volume)Ordered By: Dr. Santana on 07-08-2022 Urea nitrogen [Mass/Vol] 7 mg/dL 7-18 [facility] Thin prep Papanicolaou smear with manual screeningOrdered By: Dr. Santana on 07-08-2022 Thin prep Papanicolaou smear with manual screening 20 U/L 15-37 [facility] Thin prep Papanicolaou smear with manual screening 9 5-15 [facility] No Panel Informationon 05-25 Thyroid Stimulating Hormone (TSH) 2.85 uIU/mL 0.358-3.74 [facility] Work Phone: Absolute lymphocyte counton 04-09-2022 Lymphocytes Auto (Unsp spec) [#/Vol] 2.49 10*3/uL 0.83-4.51 [facility] Work Phone: Basophil percentageon 2021 Basophils/100 WBC (Bld) 0.3 % 0-1 [facility] Work Phone: Bilirubin [Mass/Vol] 0.90 mg/dL 0.20-1.00 [facility] Work Phone: Comment on above: For patients on eltr ombopag therapy, use of [place] TBIL is not recommended. Chloride [Moles/Vol] 103 mmol/L 98-107 [facility] Work Phone: Cholesterol [Mass/Vol] 154 mg/dL <200 [facility] Work Phone: Comment on above: <200 mg/dL Desirable 200-240 mg/dL Borderline >240 mg/dL High Risk Eosinophils/100 WBC (Bld) 5.2 % 0-5 [facility] Work Phone: Glucose [Mass/Vol] 337 mg/dL 74-106 [facility] Work Phone: Comment on above: Glucose result great er than or equal to 200 mg/dLsuggests DIABETES MELLITUS per A.D.A. criteria. Neutrophils (Bld) [#/Vol] 2.6 10*3/uL 2.0-7.7 [facility] Work Phone: Neutrophils/100 WBC (Bld) 44.2 % 47-70 [facility] Work Phone: Potassium [Moles/Vol] 3.9 mmol/L 3.5-5.1 [facility] Work Phone: Protein [Mass/Vol] 7.1 g/dL 6.4-8.2 [facility] Work Phone: Sodium [Moles/Vol] 135 mmol/L 136-145 [facility] Work Phone: Triglyceride [Mass/Vol] 105 mg/dL <199 [facility] Work Phone: Comment on above: The drugs N-Acetylcy steine and Metamizole may falsely depress this assay.Serum Triglycerides Reference Interval Normal <150 mg/dL Borderline high 150 - 199 mg/dL High 200 - 499 mg/dL Very High > or = 500 mg/dL WBC (Bld) [#/Vol] 6.0 10*3/uL 4.4-11.0 [facility] Work Phone: Blood erythrocytes count (nu mber/volume)on 04-09-2022 RBC (Bld) [#/Vol] 3.33 10*6/uL 4.2-5.4 [facility] Work Phone: Blood hemoglobin measurement (mass/volume)on 04-09-2022 Hemoglobin (Bld) [Mass/Vol] 10.0 g/dL 12.0-15.0 [facility] Work Phone: Blood lymphocytes/100 leukoc yteson 04-09-2022 Lymphocytes/100 WBC (Bld) 41.8 % 19-41 [facility] Work Phone: Blood monocytes/100 leukocyt eson 04-09-2022 Monocytes/100 WBC (Bld) 8.2 % 0-10 [facility] Work Phone: Blood platelet mean volumeon 04-09-2022 Platelet mean volume (Bld) [Entitic vol] 10.0 fL 6.2-12.0 [facility] Work Phone: Determination of erythrocyte mean corpuscular volume (MCV)on 04-09-2022 MCV (RBC) [Entitic vol] 88.9 fL 81-99 [facility] Work Phone: Hematocrit Auto (Bld) [Volum e fraction]on 04-09-2022 Hematocrit (Bld) [Volume fraction] 29.6 % 37-47 [facility] Work Phone: Laboratory - Chemistry and C hemistry - challengeon 04-09-2022 ALP [Catalytic activity/Vol] 101 U/L 45-117 [facility] Work Phone: ALT [Catalytic activity/Vol] 20 U/L 13-56 [facility] Work Phone: CO2 [Moles/Vol] 24.0 mmol/L 21.0-32.0 [facility] Work Phone: Globulin (S) [Mass/Vol] 4.4 g/dL 2.2-4.2 [facility] Work Phone: Urea nitrogen/Creatinine [Mass ratio] 10.9 mg/mg 10-20 [facility] Work Phone: Laboratory - Hematology and Cell countson 04-09-2022 Erythrocyte distribution width (RBC) [Entitic vol] 43.0 fL 35.1-43.9 [facility] Work Phone: Erythrocyte distribution width (RBC) [Ratio] 13.3 % 11.6-14.6 [facility] Work Phone: Immature granulocytes/100 WBC (Bld) 0.300 % 0.0-0.9 [facility] Work Phone: Comment on above: IG% - Immature Granu locytes (promyelocytes, myelocytes and metamyelocytes) > 1% indicates that a LEFT SHIFT is Present. MCH (RBC) [Entitic mass] 30.0 pg 27.0-32.0 [facility] Work Phone: Nucleated RBC/100 WBC (Bld) [Ratio] 0 % 0-5 [facility] Work Phone: MCHC Auto (RBC) [Mass/Vol]on 04-09-2022 MCHC (RBC) [Mass/Vol] 33.8 g/dL 32-36 [facility] Work Phone: No Panel Informationon 04-09 Estimated GFR (MDRD) Amer 99 mL/min >60 [facility] Work Phone: Comment on above: GFR Calc Estimated GFR (MDRD) Non-Af Amer 82 mL/min >60 [facility] Work Phone: Comment on above: Non- GFR Calc Thyroid Stimulating Hormone (TSH) 5.32 uIU/mL 0.358-3.74 [facility] Work Phone: Vitamin D 25-Hydroxy 28.3 ng/mL [facility] Work Phone: Comment on above: Vitamin D 25(OH) Sta tus Range Deficiency <20 ng/mL (50nmol/L) Insufficiency 20 - 30 ng/mL (50 - 75 nmol/L) Sufficiency 30 - 100 ng/mL (75 - 250 nmol/L) Toxicity >100 ng/mL (>250 nmol/L) Platelets bldon 04-09-2022 Platelets (Bld) [#/Vol] 203 10*3/uL 150-450 [facility] Work Phone: Serum or plasma albumin sabino urement (mass/volume)on 04-09-2022 Albumin [Mass/Vol] 2.7 g/dL 3.2-5.0 [facility] Work Phone: Serum or plasma albumin/glob ulin mass ratioon 04-09-2022 Albumin/Globulin [Mass ratio] 0.6 {ratio} 0.9-2.4 [facility] Work Phone: Serum or plasma calcium sabino urement (mass/volume)on 04-09-2022 Calcium [Mass/Vol] 8.7 mg/dL 8.5-10.1 [facility] Work Phone: Serum or plasma cholesterol in HDL measurement (mass/volume)on 04-09-2022 Cholesterol in HDL [Mass/Vol] 43 mg/dL >40 [facility] Work Phone: Comment on above: The drugs N-Acetylcy steine and Metamizole may falsely depress this assay. Reference Range HDL <40 mg/dL Low HDL Cholesterol HDL >or= 60 mg/dL High HDL Cholesterol Serum or plasma cholesterol in VLDL measurement (mass/volume)on 04-09-2022 Cholesterol in VLDL [Mass/Vol] 21 mg/dL 5-40 [facility] Work Phone: Serum or plasma creatinine m easurement (mass/volume)on 04-09-2022 Creatinine [Mass/Vol] 0.74 mg/dL 0.55-1.02 [facility] Work Phone: Comment on above: The validity of the calculated GFR & GFRAA in patients over 70 years has not been determined. Clinical correlation is essential. Serum or plasma low density lipoprotein (LDL) cholesterol measurement (mass/volume)on 04-09-2022 Cholesterol in LDL [Mass/Vol] 90 mg/dL 0-130 [facility] Work Phone: Serum or plasma urea nitroge n measurement (mass/volume)on 04-09-2022 Urea nitrogen [Mass/Vol] 8 mg/dL 7-18 [facility] Work Phone: Thin prep Papanicolaou smear with manual screeningon 04-09-2022 Thin prep Papanicolaou smear with manual screening 22 U/L 15-37 [facility] Work Phone: Thin prep Papanicolaou smear with manual screening 8 5-15 [facility] Work Phone: Absolute lymphocyte counton 03-21-2022 Lymphocytes Auto (Unsp spec) [#/Vol] 1.58 10*3/uL 0.83-4.51 [facility] Work Phone: Basophil percentageon 2021 Basophils/100 WBC (Bld) 0.2 % 0-1 [facility] Work Phone: Bilirubin [Mass/Vol] 1.60 mg/dL 0.20-1.00 [facility] Work Phone: Comment on above: For patients on eltr ombopag therapy, use of [place] TBIL is not recommended. Chloride [Moles/Vol] 108 mmol/L 98-107 [facility] Work Phone: Eosinophils/100 WBC (Bld) 0.0 % 0-5 [facility] Work Phone: Glucose [Mass/Vol] 181 mg/dL 74-106 [facility] Work Phone: Comment on above: Fasting Glucose resu lt greater than or equal to 126 mg/dL suggests DIABETES MELLITUS per A.D.A. criteria. Neutrophils (Bld) [#/Vol] 8.6 10*3/uL 2.0-7.7 [facility] Work Phone: Neutrophils/100 WBC (Bld) 79.8 % 47-70 [facility] Work Phone: Potassium [Moles/Vol] 3.3 mmol/L 3.5-5.1 [facility] Work Phone: Protein [Mass/Vol] 6.4 g/dL 6.4-8.2 [facility] Work Phone: Sodium [Moles/Vol] 136 mmol/L 136-145 [facility] Work Phone: WBC (Bld) [#/Vol] 10.8 10*3/uL 4.4-11.0 [facility] Work Phone: Blood erythrocytes count (nu mber/volume)on 03-21-2022 RBC (Bld) [#/Vol] 3.29 10*6/uL 4.2-5.4 [facility]: Blood hemoglobin measurement (mass/volume)on 03-21-2022 Hemoglobin (Bld) [Mass/Vol] 10.1 g/dL 12.0-15.0 [facility] Work Phone: Blood lymphocytes/100 leukoc yteson 03-21-2022 Lymphocytes/100 WBC (Bld) 14.6 % 19-41 [facility] Work Phone: Blood monocytes/100 leukocyt eson 03-21-2022 Monocytes/100 WBC (Bld) 4.4 % 0-10 [facility] Work Phone: Blood platelet mean volumeon 03-21-2022 Platelet mean volume (Bld) [Entitic vol] 9.9 fL 6.2-12.0 [facility] Work Phone: Determination of erythrocyte mean corpuscular volume (MCV)on 03-21-2022 MCV (RBC) [Entitic vol] 89.1 fL 81-99 [facility] Work Phone: Glucose Glucometer (BldC) [M ass/Vol]on 03-21-2022 Glucose [Mass/Vol] 172 mg/dL 74-106 [facility] Work Phone: Comment on above: MANAGEMENT OF PATIEN T CARE PER NURSING PROTOCOL Hematocrit Auto (Bld) [Volum e fraction]on 03-21-2022 Hematocrit (Bld) [Volume fraction] 29.3 % 37-47 [facility] Work Phone: Laboratory - Chemistry and C hemistry - challengeon 03-21-2022 ALP [Catalytic activity/Vol] 215 U/L 45-117 [facility] Work Phone: ALT [Catalytic activity/Vol] 82 U/L 13-56 [facility] Work Phone: CO2 [Moles/Vol] 22.0 mmol/L 21.0-32.0 [facility] Work Phone: Globulin (S) [Mass/Vol] 4.2 g/dL 2.2-4.2 [facility] Work Phone: Lipase [Catalytic activity/Vol] 147 U/L 73-393 [facility] Work Phone: Urea nitrogen/Creatinine [Mass ratio] 17.3 mg/mg 10-20 [facility] Work Phone: Laboratory - Hematology and Cell countson 03-21-2022 Erythrocyte distribution width (RBC) [Entitic vol] 43.1 fL 35.1-43.9 [facility] Work Phone: Erythrocyte distribution width (RBC) [Ratio] 13.2 % 11.6-14.6 [facility] Work Phone: Immature granulocytes/100 WBC (Bld) 1.000 % 0.0-0.9 [facility] Work Phone: Comment on above: IG% - Immature Granu locytes (promyelocytes, myelocytes and metamyelocytes) > 1% indicates that a LEFT SHIFT is Present. MCH (RBC) [Entitic mass] 30.7 pg 27.0-32.0 [facility] Work Phone: Nucleated RBC/100 WBC (Bld) [Ratio] 0 % 0-5 [facility] Work Phone: MCHC Auto (RBC) [Mass/Vol]on 03-21-2022 MCHC (RBC) [Mass/Vol] 34.5 g/dL 32-36 [facility] Work Phone: No Panel Informationon 03-21 Estimated Creatinine Clearance Calc 37.24 ml/min [facility] Work Phone: Estimated GFR (MDRD) Amer 131 mL/min >60 [facility] Work Phone: Comment on above: GFR Calc Estimated GFR (MDRD) Non-Af Amer 108 mL/min >60 [facility] Work Phone: Comment on above: Non- GFR Calc Platelets bldon 03-21-2022 Platelets (Bld) [#/Vol] 187 10*3/uL 150-450 [facility] Work Phone: Serum or plasma albumin sabino urement (mass/volume)on 03-21-2022 Albumin [Mass/Vol] 2.2 g/dL 3.2-5.0 [facility] Work Phone: Serum or plasma albumin/glob ulin mass ratioon 03-21-2022 Albumin/Globulin [Mass ratio] 0.5 {ratio} 0.9-2.4 [facility] Work Phone: Serum or plasma calcium sabino urement (mass/volume)on 03-21-2022 Calcium [Mass/Vol] 8.2 mg/dL 8.5-10.1 [facility] Work Phone: Serum or plasma creatinine m easurement (mass/volume)on 03-21-2022 Creatinine [Mass/Vol] 0.58 mg/dL 0.55-1.02 [facility] Work Phone: Comment on above: The validity of the calculated GFR & GFRAA in patients over 70 years has not been determined. Clinical correlation is essential. Serum or plasma urea nitroge n measurement (mass/volume)on 03-21-2022 Urea nitrogen [Mass/Vol] 10 mg/dL 7-18 [facility] Work Phone: Thin prep Papanicolaou smear with manual screeningon 03-21-2022 Thin prep Papanicolaou smear with manual screening 65 U/L 15-37 [facility] Work Phone: Thin prep Papanicolaou smear with manual screening 6 5-15 [facility] Work Phone: Absolute lymphocyte counton 03-20-2022 Lymphocytes Auto (Unsp spec) [#/Vol] 1.85 10*3/uL 0.83-4.51 [facility] Work Phone: Basophil percentageon 2021 Basophil percentage >100 SEEN /hpf 0-5 [facility] Work Phone: Basophils/100 WBC (Bld) 0.2 % 0-1 [facility] Work Phone: Bilirubin [Mass/Vol] 3.90 mg/dL 0.20-1.00 [facility] Work Phone: Comment on above: For patients on eltr ombopag therapy, use of [place] TBIL is not recommended. Chloride [Moles/Vol] 102 mmol/L 98-107 [facility] Work Phone: Eosinophils/100 WBC (Bld) 0.6 % 0-5 [facility] Work Phone: Glucose [Mass/Vol] 192 mg/dL 74-106 [facility] Work Phone: Comment on above: Fasting Glucose resu lt greater than or equal to 126 mg/dL suggests DIABETES MELLITUS per A.D.A. criteria. Neutrophils (Bld) [#/Vol] 16.2 10*3/uL 2.0-7.7 [facility] Work Phone: Neutrophils/100 WBC (Bld) 82.7 % 47-70 [facility] Work Phone: Potassium [Moles/Vol] 3.3 mmol/L 3.5-5.1 [facility] Work Phone: Comment on above: Slight Hemolysis, Re sult may be falsely increased. Protein [Mass/Vol] 7.3 g/dL 6.4-8.2 [facility] Work Phone: Sodium [Moles/Vol] 133 mmol/L 136-145 [facility] Work Phone: WBC (Bld) [#/Vol] 19.5 10*3/uL 4.4-11.0 [facility] Work Phone: Bilirubin Test strip Ql (U)o n 03-20-2022 Bilirubin Ql (U) 3 mg/dL Negative [facility] Work Phone: Comment on above: COLOR OF URINE MAY A FFECT DIPSTICK RESULTS. Blood erythrocytes count (nu mber/volume)on 03-20-2022 RBC (Bld) [#/Vol] 3.64 10*6/uL 4.2-5.4 [facility] Work Phone: Blood hemoglobin measurement (mass/volume)on 03-20-2022 Hemoglobin (Bld) [Mass/Vol] 11.6 g/dL 12.0-15.0 [facility] Work Phone: Blood lymphocytes/100 leukoc yteson 03-20-2022 Lymphocytes/100 WBC (Bld) 9.5 % 19-41 [facility] Work Phone: Blood monocytes/100 leukocyt eson 03-20-2022 Monocytes/100 WBC (Bld) 6.0 % 0-10 [facility] Work Phone: Blood platelet mean volumeon 03-20-2022 Platelet mean volume (Bld) [Entitic vol] 10.6 fL 6.2-12.0 [facility] Work Phone: Blood platelet morphology de termination (nominal result)on 03-20-2022 Platelet morphology finding Nom (Bld) CLUMPED [facility] Work Phone: Determination of erythrocyte mean corpuscular volume (MCV)on 03-20-2022 MCV (RBC) [Entitic vol] 88.7 fL 81-99 [facility] Work Phone: Direct bilirubinon 2 Bilirubin.direct [Mass/Vol] 2.33 mg/dL 0.00-0.30 [facility] Work Phone: Hematocrit Auto (Bld) [Volum e fraction]on 03-20-2022 Hematocrit (Bld) [Volume fraction] 32.3 % 37-47 [facility] Work Phone: Ketones Test strip Ql (U)on 03-20-2022 Ketones Ql (U) 15 mg/dl Negative [facility] Work Phone: Laboratory - Chemistry and C hemistry - challengeon 03-20-2022 ALP [Catalytic activity/Vol] 266 U/L 45-117 [facility] Work Phone: ALT [Catalytic activity/Vol] 108 U/L 13-56 [facility] Work Phone: CO2 [Moles/Vol] 22.0 mmol/L 21.0-32.0 [facility] Work Phone: Globulin (S) [Mass/Vol] 4.7 g/dL 2.2-4.2 [facility] Work Phone: Lipase [Catalytic activity/Vol] 01026 U/L 73-393 [facility] Work Phone: Magnesium [Mass/Vol] 2.0 mg/dL 1.6-2.6 [facility] Work Phone: Comment on above: Moderate Hemolysis, Result may be falsely increased. Urea nitrogen/Creatinine [Mass ratio] 30.4 mg/mg 10-20 [facility] Work Phone: Laboratory - Hematology and Cell countson 03-20-2022 Erythrocyte distribution width (RBC) [Entitic vol] 42.5 fL 35.1-43.9 [facility] Work Phone: Erythrocyte distribution width (RBC) [Ratio] 13.2 % 11.6-14.6 [facility] Work Phone: Immature granulocytes/100 WBC (Bld) 1.000 % 0.0-0.9 [facility] Work Phone: Comment on above: IG% - Immature Granu locytes (promyelocytes, myelocytes and metamyelocytes) > 1% indicates that a LEFT SHIFT is Present. MCH (RBC) [Entitic mass] 31.9 pg 27.0-32.0 [facility] Work Phone: Nucleated RBC/100 WBC (Bld) [Ratio] 0 % 0-5 [facility] Work Phone: MCHC Auto (RBC) [Mass/Vol]on 03-20-2022 MCHC (RBC) [Mass/Vol] 35.9 g/dL 32-36 [facility] Work Phone: Mucus LM Ql (Urine sed)on Mucus Ql (Urine sed) 0 SEEN /hpf [facility] Work Phone: Nitrite Test strip Ql (U)on 03-20-2022 Nitrite Ql (U) Negative Negative [facility] Work Phone: No Panel Informationon 03-20 Estimated Creatinine Clearance Calc 37.24 ml/min [facility] Work Phone: Estimated GFR (MDRD) Amer 127 mL/min >60 [facility] Work Phone: Comment on above: GFR Calc Estimated GFR (MDRD) Non-Af Amer 105 mL/min >60 [facility] Work Phone: Comment on above: Non- GFR Calc Thyroid Stimulating Hormone (TSH) 7.14 uIU/mL 0.358-3.74 [facility] Work Phone: Platelets bldon 03-20-2022 Platelets (Bld) [#/Vol] 227 10*3/uL 150-450 [facility] Work Phone: Protein Test strip Ql (U)on 03-20-2022 Protein Ql (U) 100 mg/dl Negative [facility] Work Phone: Serum or plasma albumin sabino urement (mass/volume)on 03-20-2022 Albumin [Mass/Vol] 2.6 g/dL 3.2-5.0 [facility] Work Phone: Serum or plasma calcium sabino urement (mass/volume)on 03-20-2022 Calcium [Mass/Vol] 9.0 mg/dL 8.5-10.1 [facility] Work Phone: Serum or plasma creatinine m easurement (mass/volume)on 03-20-2022 Creatinine [Mass/Vol] 0.59 mg/dL 0.55-1.02 [facility] Work Phone: Comment on above: The validity of the calculated GFR & GFRAA in patients over 70 years has not been determined. Clinical correlation is essential. Serum or plasma urea nitroge n measurement (mass/volume)on 03-20-2022 Urea nitrogen [Mass/Vol] 18 mg/dL 7-18 [facility] Work Phone: Squamous epithelial cells de tection in urine sediment by light microscopyon 03-20-2022 Epithelial cells.squamous LM Ql (Urine sed) 0-5 SEEN /hpf 5-10 [facility] Work Phone: Thin prep Papanicolaou smear with manual screeningon 03-20-2022 Thin prep Papanicolaou smear with manual screening 133 U/L 15-37 [facility] Work Phone: Comment on above: Slight Hemolysis, Re sult may be falsely increased. Thin prep Papanicolaou smear with manual screening 9 5-15 [facility] Work Phone: Urine blood detectionon 02-21 RBC Ql (U) 250 /ul Negative [facility] Work Phone: RBC Ql (U) 5-10 SEEN /hpf 0-5 [facility] Work Phone: Urine clarityon 03-20-2022 Clarity (U) Cloudy Clear [facility] Work Phone: Urine color determinationon 03-20-2022 Color (U) Yellow Yellow [facility] Work Phone: Urine glucose detectionon Glucose Ql (U) 50 mg/dl Normal [facility] Work Phone: Urine leukocyte esterase det ection by dipstickon 03-20-2022 Leukocyte esterase Test strip Ql (U) 500 /ul Negative [facility] Work Phone: Urine pHon 03-20-2022 pH (U) 6.0 [pH] 5.0 - 8.0 [facility] Work Phone: Urine sediment bacteria coun t by microscopy (number/high power field)on 03-20-2022 Bacteria LM.HPF (Urine sed) [#/Area] 4 /[HPF] None Seen [facility] Work Phone: Urine specific gravity measu rementon 03-20-2022 Specific gravity (U) [Rel density] 1.015 1.002-1.030 [facility] Work Phone: Urobilinogen Auto test strip Ql (U)on 03-20-2022 Urobilinogen Ql (U) 12 mg/dl [facility]: Whole blood hemoglobin A1c/t otal hemoglobin ratio (mass fraction)on 03-20-2022 HbA1c (Bld) [Mass fraction] 6.7 % 3.8-5.6 [facility] Work Phone: Comment on above: Normal < 5.7 % Predi abetic 5.7 - 6.4 % Diabetic >or= 6.5 % Please note range changes. Absolute lymphocyte counton 12-22-2021 Lymphocytes Auto (Unsp spec) [#/Vol] 2.26 10*3/uL 0.83-4.51 [facility] Work Phone: Basophil percentageon 2021 Basophils/100 WBC (Bld) 0.5 % 0-1 [facility] Work Phone: Eosinophils/100 WBC (Bld) 2.7 % 0-5 [facility] Work Phone: Neutrophils (Bld) [#/Vol] 2.5 10*3/uL 2.0-7.7 [facility] Work Phone: Neutrophils/100 WBC (Bld) 46.1 % 47-70 [facility] Work Phone: WBC (Bld) [#/Vol] 5.5 10*3/uL 4.4-11.0 [facility] Work Phone: Blood erythrocytes count (nu mber/volume)on 12-22-2021 RBC (Bld) [#/Vol] 3.32 10*6/uL 4.2-5.4 [facility] Work [facility]: Blood hemoglobin measurement (mass/volume)on 12-22-2021 Hemoglobin (Bld) [Mass/Vol] 10.4 g/dL 12.0-15.0 [facility] Work Phone: Blood lymphocytes/100 leukoc yteson 12-22-2021 Lymphocytes/100 WBC (Bld) 41.2 % 19-41 [facility] Work Phone: Blood monocytes/100 leukocyt eson 12-22-2021 Monocytes/100 WBC (Bld) 9.1 % 0-10 [facility] Work Phone: Blood platelet mean volumeon 12-22-2021 Platelet mean volume (Bld) [Entitic vol] 9.6 fL 6.2-12.0 [facility] Work Phone: Determination of erythrocyte mean corpuscular volume (MCV)on 12-22-2021 MCV (RBC) [Entitic vol] 90.7 fL 81-99 [facility] Work Phone: Hematocrit Auto (Bld) [Volum e fraction]on 12-22-2021 Hematocrit (Bld) [Volume fraction] 30.1 % 37-47 [facility] Work Phone: Hemoglobin in reticulocytes (mass per reticulocyte)on 12-22-2021 Hemoglobin (Reticulocytes) [Entitic mass] 34.0 pg 30-35 [facility] Work Phone: Iron measurement (mass/mass) on 12-22-2021 Iron (Unsp spec) [Mass/Mass] 56 ug/dL 50-170 [facility] Work Phone: Laboratory - Chemistry and C hemistry - challengeon 12-22-2021 Cobalamin (Vitamin B12) [Mass/Vol] 1270 pg/mL 211-911 [facility] Work Phone: Laboratory - Hematology and Cell countson 12-22-2021 Erythrocyte distribution width (RBC) [Entitic vol] 44.7 fL 35.1-43.9 [facility] Work Phone: Erythrocyte distribution width (RBC) [Ratio] 13.5 % 11.6-14.6 [facility] Work Phone: Immature granulocytes/100 WBC (Bld) 0.400 % 0.0-0.9 [facility] Work Phone: Comment on above: IG% - Immature Granu locytes (promyelocytes, myelocytes and metamyelocytes) > 1% indicates that a LEFT SHIFT is Present. MCH (RBC) [Entitic mass] 31.3 pg 27.0-32.0 [facility] Work Phone: Nucleated RBC/100 WBC (Bld) [Ratio] 0 % 0-5 [facility] Work Phone: MCHC Auto (RBC) [Mass/Vol]on 12-22-2021 MCHC (RBC) [Mass/Vol] 34.6 g/dL 32-36 [facility] Work Phone: No Panel Informationon 12-22 Immature Reticulocyte Fraction 3.20 % 3.00-15.90 [facility] Work Phone: Reticulocyte Count 1.42 % 0.5-1.5 [facility] Work Phone: Total Iron Binding Capacity 288 ug/dL 250-450 [facility] Work Phone: Platelets bldon 12-22-2021 Platelets (Bld) [#/Vol] 217 10*3/uL 150-450 [facility] Work Phone: Serum or plasma ferritin uzma surement (mass/volume)on 12-22-2021 Ferritin [Mass/Vol] 20 ng/mL 8-252 [facility]: Serum or plasma folate measu rement (mass/volume)on 12-22-2021 Folate [Mass/Vol] 16.20 ng/mL 3.1-55.4 [facility] Work Phone: Serum or plasma iron saturat ion measurement (mass fraction)on 12-22-2021 Iron saturation [Mass fraction] 19.4 % 15.0-55.0 [facility] Work Phone: Absolute lymphocyte counton 12-15-2021 Lymphocytes Auto (Unsp spec) [#/Vol] 2.22 10*3/uL 0.83-4.51 [facility] Work Phone: Basophil percentageon 2021 Basophils/100 WBC (Bld) 0.6 % 0-1 [facility] Work Phone: Bilirubin [Mass/Vol] 1.10 mg/dL 0.20-1.00 [facility] Work Phone: Comment on above: For patients on eltr ombopag therapy, use of Dimension [place] TBIL is not recommended. Chloride [Moles/Vol] 109 mmol/L 98-107 [facility] Work Phone: Cholesterol [Mass/Vol] 160 mg/dL <200 [facility] Work Phone: Comment on above: <200 mg/dL Desirable 200-240 mg/dL Borderline >240 mg/dL High Risk Eosinophils/100 WBC (Bld) 2.4 % 0-5 [facility] Work Phone: Glucose [Mass/Vol] 248 mg/dL 74-106 [facility] Work Phone: Comment on above: Glucose result great er than or equal to 200 mg/dLsuggests DIABETES MELLITUS per A.D.A. criteria. Neutrophils (Bld) [#/Vol] 2.1 10*3/uL 2.0-7.7 [facility] Work Phone: Neutrophils/100 WBC (Bld) 41.5 % 47-70 [facility] Work Phone: Potassium [Moles/Vol] 3.8 mmol/L 3.5-5.1 [facility] Work Phone: Protein [Mass/Vol] 7.1 g/dL 6.4-8.2 [facility] Work Phone: Sodium [Moles/Vol] 140 mmol/L 136-145 [facility] Work Phone: Triglyceride [Mass/Vol] 67 mg/dL <199 [facility] Work Phone: Comment on above: The drugs N-Acetylcy steine and Metamizole may falsely depress this assay.Serum Triglycerides Reference Interval Normal <150 mg/dL Borderline high 150 - 199 mg/dL High 200 - 499 mg/dL Very High > or = 500 mg/dL WBC (Bld) [#/Vol] 5.0 10*3/uL 4.4-11.0 [facility] Work Phone: Blood erythrocytes count (nu mber/volume)on 12-15-2021 RBC (Bld) [#/Vol] 3.18 10*6/uL 4.2-5.4 [facility] Work Phone: Blood hemoglobin measurement (mass/volume)on 12-15-2021 Hemoglobin (Bld) [Mass/Vol] 9.9 g/dL 12.0-15.0 [facility] Work Phone: Blood lymphocytes/100 leukoc yteson 12-15-2021 Lymphocytes/100 WBC (Bld) 44.8 % 19-41 [facility] Work Phone: Blood monocytes/100 leukocyt eson 12-15-2021 Monocytes/100 WBC (Bld) 10.5 % 0-10 [facility] Work Phone: Blood platelet mean volumeon 12-15-2021 Platelet mean volume (Bld) [Entitic vol] 10.1 fL 6.2-12.0 [facility] Work Phone: Determination of erythrocyte mean corpuscular volume (MCV)on 12-15-2021 MCV (RBC) [Entitic vol] 90.6 fL 81-99 [facility] Work Phone: Hematocrit Auto (Bld) [Volum e fraction]on 12-15-2021 Hematocrit (Bld) [Volume fraction] 28.8 % 37-47 [facility] Work Phone: Laboratory - Chemistry and C hemistry - challengeon 12-15-2021 ALP [Catalytic activity/Vol] 98 U/L 45-117 [facility] Work Phone: ALT [Catalytic activity/Vol] 27 U/L 13-56 [facility] Work Phone: CO2 [Moles/Vol] 23.0 mmol/L 21.0-32.0 [facility] Work Phone: Globulin (S) [Mass/Vol] 4.1 g/dL 2.2-4.2 [facility] Work Phone: Urea nitrogen/Creatinine [Mass ratio] 14.4 mg/mg 10-20 [facility] Work Phone: Laboratory - Hematology and Cell countson 12-15-2021 Erythrocyte distribution width (RBC) [Entitic vol] 46.1 fL 35.1-43.9 [facility] Work Phone: Erythrocyte distribution width (RBC) [Ratio] 13.8 % 11.6-14.6 [facility] Work Phone: Immature granulocytes/100 WBC (Bld) 0.200 % 0.0-0.9 [facility] Work Phone: Comment on above: IG% - Immature Granu locytes (promyelocytes, myelocytes and metamyelocytes) > 1% indicates that a LEFT SHIFT is Present. MCH (RBC) [Entitic mass] 31.1 pg 27.0-32.0 [facility] Work Phone: Nucleated RBC/100 WBC (Bld) [Ratio] 0 % 0-5 [facility] Work Phone: MCHC Auto (RBC) [Mass/Vol]on 12-15-2021 MCHC (RBC) [Mass/Vol] 34.4 g/dL 32-36 [facility] Work Phone: No Panel Informationon 12-15 Estimated GFR (MDRD) Amer 95 mL/min >60 [facility] Work Phone: Comment on above: GFR Calc Estimated GFR (MDRD) Non-Af Amer 79 mL/min >60 [facility] Work Phone: Comment on above: Non- GFR Calc Thyroid Stimulating Hormone (TSH) 4.10 uIU/mL 0.358-3.74 [facility] Work Phone: Vitamin D 25-Hydroxy 27.0 ng/mL [facility] Work Phone: Comment on above: Vitamin D 25(OH) Sta tus Range Deficiency <20 ng/mL (50nmol/L) Insufficiency 20 - 30 ng/mL (50 - 75 nmol/L) Sufficiency 30 - 100 ng/mL (75 - 250 nmol/L) Toxicity >100 ng/mL (>250 nmol/L) Platelets bldon 12-15-2021 Platelets (Bld) [#/Vol] 199 10*3/uL 150-450 [facility] Work Phone: Serum or plasma albumin sabino urement (mass/volume)on 12-15-2021 Albumin [Mass/Vol] 3.0 g/dL 3.2-5.0 [facility] Work Phone: Serum or plasma albumin/glob ulin mass ratioon 12-15-2021 Albumin/Globulin [Mass ratio] 0.7 {ratio} 0.9-2.4 [facility] Work Phone: Serum or plasma calcium sabino urement (mass/volume)on 12-15-2021 Calcium [Mass/Vol] 8.3 mg/dL 8.5-10.1 [facility] Work Phone: Serum or plasma cholesterol in HDL measurement (mass/volume)on 12-15-2021 Cholesterol in HDL [Mass/Vol] 52 mg/dL >40 [facility] Work Phone: Comment on above: The drugs N-Acetylcy steine and Metamizole may falsely depress this assay. Reference Range HDL <40 mg/dL Low HDL Cholesterol HDL >or= 60 mg/dL High HDL Cholesterol Serum or plasma cholesterol in VLDL measurement (mass/volume)on 12-15-2021 Cholesterol in VLDL [Mass/Vol] 13 mg/dL 5-40 [facility] Work Phone: Serum or plasma creatinine m easurement (mass/volume)on 12-15-2021 Creatinine [Mass/Vol] 0.76 mg/dL 0.55-1.02 [facility] Work Phone: Comment on above: The validity of the calculated GFR & GFRAA in patients over 70 years has not been determined. Clinical correlation is essential. Serum or plasma low density lipoprotein (LDL) cholesterol measurement (mass/volume)on 12-15-2021 Cholesterol in LDL [Mass/Vol] 95 mg/dL 0-130 [facility] Work Phone: Serum or plasma urea nitroge n measurement (mass/volume)on 12-15-2021 Urea nitrogen [Mass/Vol] 11 mg/dL 7-18 [facility] Work Phone: Thin prep Papanicolaou smear with manual screeningon 12-15-2021 Thin prep Papanicolaou smear with manual screening 30 U/L 15-37 [facility] Work Phone: Thin prep Papanicolaou smear with manual screening 8 5-15 [facility] Work Phone: Basophil percentageon 2021 Chloride [Moles/Vol] 102 mmol/L 98-107 [facility] Work Phone: Glucose [Mass/Vol] 199 mg/dL 74-106 [facility] Work Phone: Comment on above: Fasting Glucose resu lt greater than or equal to 126 mg/dL suggests DIABETES MELLITUS per A.D.A. criteria. Potassium [Moles/Vol] 4.6 mmol/L 3.5-5.1 [facility] Work Phone: Sodium [Moles/Vol] 132 mmol/L 136-145 [facility] Work Phone: Laboratory - Chemistry and C hemistry - challengeon 09-24-2021 CO2 [Moles/Vol] 24.0 mmol/L 21.0-32.0 [facility] Work Phone: Urea nitrogen/Creatinine [Mass ratio] 16.5 mg/mg 10-20 [facility] Work Phone: No Panel Informationon 09-24 Estimated GFR (MDRD) Amer 111 mL/min >60 [facility] Work Phone: Comment on above: GFR Calc Estimated GFR (MDRD) Non-Af Amer 92 mL/min >60 [facility] Work Phone: Comment on above: Non- GFR Calc Serum or plasma calcium sabino urement (mass/volume)on 09-24-2021 Calcium [Mass/Vol] 8.9 mg/dL 8.5-10.1 [facility] Work Phone: Serum or plasma creatinine m easurement (mass/volume)on 09-24-2021 Creatinine [Mass/Vol] 0.67 mg/dL 0.55-1.02 [facility] Work Phone: Comment on above: The validity of the calculated GFR & GFRAA in patients over 70 years has not been determined. Clinical correlation is essential. Serum or plasma urea nitroge n measurement (mass/volume)on 09-24-2021 Urea nitrogen [Mass/Vol] 11 mg/dL 7-18 [facility] Work Phone: Thin prep Papanicolaou smear with manual screeningon 09-24-2021 Thin prep Papanicolaou smear with manual screening 6 5-15 [facility] Work Phone: Absolute lymphocyte counton 09-15-2021 Lymphocytes Auto (Unsp spec) [#/Vol] 3.60 10*3/uL 0.83-4.51 [facility] Work Phone: Basophil percentageon 2021 Basophils/100 WBC (Bld) 0.6 % 0-1 [facility] Work Phone: Bilirubin [Mass/Vol] 1.40 mg/dL 0.20-1.00 [facility] Work Phone: Comment on above: For patients on eltr ombopag therapy, use of Dimension [place] TBIL is not recommended. Chloride [Moles/Vol] 103 mmol/L 98-107 [facility] Work Phone: Eosinophils/100 WBC (Bld) 1.6 % 0-5 [facility] Work Phone: Glucose [Mass/Vol] 315 mg/dL 74-106 [facility] Work Phone: Comment on above: Glucose result great er than or equal to 200 mg/dLsuggests DIABETES MELLITUS per A.D.A. criteria. Neutrophils (Bld) [#/Vol] 3.7 10*3/uL 2.0-7.7 [facility] Work Phone: Neutrophils/100 WBC (Bld) 45.5 % 47-70 [facility] Work Phone: [phone] Potassium [Moles/Vol] 3.3 mmol/L 3.5-5.1 [facility] Work Phone: Protein [Mass/Vol] 8.0 g/dL 6.4-8.2 [facility] Work Phone: Sodium [Moles/Vol] 135 mmol/L 136-145 [facility] Work Phone: WBC (Bld) [#/Vol] 8.1 10*3/uL 4.4-11.0 [facility] Work Phone: Blood erythrocytes count (nu mber/volume)on 09-15-2021 RBC (Bld) [#/Vol] 3.86 10*6/uL 4.2-5.4 [facility]: Blood hemoglobin measurement (mass/volume)on 09-15-2021 Hemoglobin (Bld) [Mass/Vol] 12.2 g/dL 12.0-15.0 [facility] Work Phone: Blood lymphocytes/100 leukoc yteson 09-15-2021 Lymphocytes/100 WBC (Bld) 44.3 % 19-41 [facility] Work Phone: Blood monocytes/100 leukocyt eson 09-15-2021 Monocytes/100 WBC (Bld) 7.8 % 0-10 [facility] Work Phone: Blood platelet mean volumeon 09-15-2021 Platelet mean volume (Bld) [Entitic vol] 9.9 fL 6.2-12.0 [facility] Work Phone: Determination of erythrocyte mean corpuscular volume (MCV)on 09-15-2021 MCV (RBC) [Entitic vol] 87.8 fL 81-99 [facility] Work Phone: Hematocrit Auto (Bld) [Volum e fraction]on 09-15-2021 Hematocrit (Bld) [Volume fraction] 33.9 % 37-47 [facility] Work Phone: Laboratory - Chemistry and C hemistry - challengeon 09-15-2021 ALP [Catalytic activity/Vol] 131 U/L 45-117 [facility] Work Phone: ALT [Catalytic activity/Vol] 23 U/L 13-56 [facility] Work Phone: CO2 [Moles/Vol] 24.0 mmol/L 21.0-32.0 [facility] Work Phone: Globulin (S) [Mass/Vol] 4.9 g/dL 2.2-4.2 [facility] Work Phone: Urea nitrogen/Creatinine [Mass ratio] 15.6 mg/mg 10-20 [facility] Work Phone: Laboratory - Hematology and Cell countson 09-15-2021 Erythrocyte distribution width (RBC) [Entitic vol] 43.9 fL 35.1-43.9 [facility] Work Phone: Erythrocyte distribution width (RBC) [Ratio] 13.8 % 11.6-14.6 [facility] Work Phone: Immature granulocytes/100 WBC (Bld) 0.200 % 0.0-0.9 [facility] Work Phone: Comment on above: IG% - Immature Granu locytes (promyelocytes, myelocytes and metamyelocytes) > 1% indicates that a LEFT SHIFT is Present. MCH (RBC) [Entitic mass] 31.6 pg 27.0-32.0 [facility] Work Phone: Nucleated RBC/100 WBC (Bld) [Ratio] 0 % 0-5 [facility] Work Phone: MCHC Auto (RBC) [Mass/Vol]on 09-15-2021 MCHC (RBC) [Mass/Vol] 36.0 g/dL 32-36 [facility] Work Phone: No Panel Informationon 09-15 Estimated GFR (MDRD) Amer 104 mL/min >60 [facility] Work Phone: Comment on above: GFR Calc Estimated GFR (MDRD) Non-Af Amer 86 mL/min >60 [facility] Work Phone: Comment on above: Non- GFR Calc Thyroid Stimulating Hormone (TSH) 6.85 uIU/mL 0.358-3.74 [facility] Work Phone: Vitamin D 25-Hydroxy 29.7 ng/mL [facility] Work Phone: Comment on above: Vitamin D 25(OH) Sta tus Range Deficiency <20 ng/mL (50nmol/L) Insufficiency 20 - 30 ng/mL (50 - 75 nmol/L) Sufficiency 30 - 100 ng/mL (75 - 250 nmol/L) Toxicity >100 ng/mL (>250 nmol/L) Platelets bldon 09-15-2021 Platelets (Bld) [#/Vol] 220 10*3/uL 150-450 [facility] Work Phone: Serum or plasma albumin sabino urement (mass/volume)on 09-15-2021 Albumin [Mass/Vol] 3.1 g/dL 3.2-5.0 [facility] Work Phone: Serum or plasma albumin/glob ulin mass ratioon 09-15-2021 Albumin/Globulin [Mass ratio] 0.6 {ratio} 0.9-2.4 [facility] Work Phone: Serum or plasma calcium sabino urement (mass/volume)on 09-15-2021 Calcium [Mass/Vol] 8.9 mg/dL 8.5-10.1 [facility] Work Phone: Serum or plasma creatinine m easurement (mass/volume)on 09-15-2021 Creatinine [Mass/Vol] 0.71 mg/dL 0.55-1.02 [facility] Work Phone: Comment on above: The validity of the calculated GFR & GFRAA in patients over 70 years has not been determined. Clinical correlation is essential. Serum or plasma urea nitroge n measurement (mass/volume)on 09-15-2021 Urea nitrogen [Mass/Vol] 11 mg/dL 7-18 [facility] Work Phone: Thin prep Papanicolaou smear with manual screeningon 09-15-2021 Thin prep Papanicolaou smear with manual screening 26 U/L 15-37 [facility] Work Phone: Thin prep Papanicolaou smear with manual screening 8 5-15 [facility] Work Phone: NM Myocardial Perf Imaging M viktor Specton 02-15-2017 NM Myocardial Perf Imaging Multi Spect Patient Name: SHASHI OSWALD Nuc Med Exam Date/Time 02/15/2017 10:12:43 EDT Exam NM Myocardial Perf Imaging Multi Spect Ordering Physician MD TRENA, JOE Robert Accession Number [id number] CPT4 Codes 49832 (), 22683 (NM EKG TREADMILL - NUCLEAR) Reason For Exam CHEST PAIN, ACUTE CORONARY SYNDROME SUSPECT Report *Nuclear Cardiology* [place] [address] Fax #: [phone] --- Nuclear Stress Myocardial Perfusion Study Regadenoson Protocol Gated SPECT Patient: Shashi Oswald Height: (61 in) Weight: (141.9 lb) : 1945 Age: 71 Gender: F Study Date: 02/15/2017 Accession#: Patient Room #: *ORDERING PHYSICIAN: * Joe Hein *SUPERVISING PHYSICIAN: * Raymundo Murphy, *RN: * Damaris Bright MD *RADIOLOGIST: * Jazmin Diego MD *NUCLEAR TECH: * Deepti Sanchez *READING PHYSICIAN: * Ash Orourke MD, [facility] --- Indications: Chest pain. --- Summary: 1. [...] peak heart rate and blood pressure was [address]52 mm Hg/min. The patient experienced no chest [...] 65%. Electronically signed by Ash Orourke MD, ABIEL 02/15/2017 16:09 Final Dictated: 02/15/2017 4:09 pm Dictating Physician: MD. BRYCE, ASH BEEBE Signed Date and Time: 02/15/2017 4:09 pm Signed by: MD. BRYCE, ASH BEEBE [facility] Yifan Pereraon 7 NM Rad [facility] Patient Name: SHASHI OSWALD Nuc Med Exam Date/Time 02/15/2017 08:18:01 EDT Exam NM Rad [facility] Ordering Physician YIFAN PERERA Accession Number [id number] Reason For Exam Yifan perera Report --- [...] peak heart rate and blood pressure [place] [address]26 mm Hg/min. The patient experienced no chest [...] and Time: 02/03/2018 9:58 Transcribed By:ROSALINDA Normal [facility] Basic Metabolic Panelon 06-2 Anion gap 12 mmol/L Normal [facility] Comment on above: Performed By: #### H EMOG, BMP3, TROPN, LIPD2, TSH4, HA1C2 ####[address] [address] [place] [address] Creatinine 0.62 mg/dL Normal 0.55-1.40 [facility] Comment on above: Performed By: #### H EMOG, BMP3, TROPN, LIPD2, TSH4, HA1C2 ####[address] [address] eGFR (black) mL/min/{1.73_m2} Normal >60 [facility] Comment on above: Performed By: #### H EMOG, BMP3, TROPN, LIPD2, TSH4, HA1C2 ####[address] [address] [place] [address] eGFR (non-black) mL/min/{1.73_m2} Normal >60 [facility] Comment on above: Result Comment: Sour ce- MDRD equation with creatinine calibration to IDMS(NKDEP)eGFR not recommended for drug dose adjustment Performed By: #### H EMOG, BMP3, TROPN, LIPD2, TSH4, HA1C2 ####[address] [address] [place] [address] CO2 20 mmol/L Low 21-32 [facility] Comment on above: Performed By: #### H EMOG, BMP3, TROPN, LIPD2, TSH4, HA1C2 ####[address] [place] [address] Glucose mass conc 201 mg/dL High 70-100 [facility] Comment on above: Performed By: #### H EMOG, BMP3, TROPN, LIPD2, TSH4, HA1C2 ####[address] [place] [address] Urea nitrogen 14 mg/dL Normal 7-[address] [facility] Comment on above: Performed By: #### H EMOG, BMP3, TROPN, LIPD2, TSH4, HA1C2 ####[address] [place] [address] Calcium 9.2 mg/dL Normal 8.2-10.1 [facility] Comment on above: Performed By: #### H EMOG, BMP3, TROPN, LIPD2, TSH4, HA1C2 ####[address] [place] [address] Chloride 104 mmol/L Normal 98-109 [facility] Comment on above: Performed By: #### H EMOG, BMP3, TROPN, LIPD2, TSH4, HA1C2 ####[address] [place] [address] Potassium molar conc 3.6 mmol/L Normal 3.5-5.1 [facility] Comment on above: Performed By: #### H EMOG, BMP3, TROPN, LIPD2, TSH4, HA1C2 ####[address] [address] Sodium 136 mmol/L Normal 135-145 [facility] Comment on above: Performed By: #### H EMOG, BMP3, TROPN, LIPD2, TSH4, HA1C2 ####[place] [address] Hemoglobin A1Con 02-14-2017 Glucose mass conc 143 mg/dL Normal [facility] Comment on above: Performed By: #### H EMOG, BMP3, TROPN, LIPD2, TSH4, HA1C2 ####[place] [address] Hemoglobin A1c/Hemoglobin.total mass fraction (Bld) 6.6 % High 4.0-5.6 [facility] Comment on above: Result Comment: --Hg bA1C levels may not be accurate in patients who haverenal disease, received recent blood transfusions, are anemic,or who have dyshemoglobinemia. Performed By: #### H EMOG, BMP3, TROPN, LIPD2, TSH4, HA1C2 ####[place] [address] Hemogramon 02-14-2017 Erythrocyte distribution width Auto Ratio (RBC) 14.6 % High 11.5-14.5 [facility] Comment on above: Performed By: #### H EMOG, BMP3, TROPN, LIPD2, TSH4, HA1C2 ####[place] [address] Erythrocytes (RBC) 3.71 10*6/uL Low 3.80-5.20 [facility] Comment on above: Performed By: #### H EMOG, BMP3, TROPN, LIPD2, TSH4, HA1C2 ####[place] [address] Hematocrit (HCT) 33.2 % Low 35.0-47.0 [facility] Comment on above: Performed By: #### H EMOG, BMP3, TROPN, LIPD2, TSH4, HA1C2 ####[address] [address] Hemoglobin mass conc (Bld) 11.4 g/dL Low 11.7-16.0 [facility] Comment on above: Performed By: #### H EMOG, BMP3, TROPN, LIPD2, TSH4, HA1C2 ####[address] [address] MCH 30.9 pg Normal 26.0-34.0 [facility] Comment on above: Performed By: #### H EMOG, BMP3, TROPN, LIPD2, TSH4, HA1C2 ####[address] [address] MCHC mass conc (RBC) 34.4 % Normal 32.0-36.0 [facility] Comment on above: Performed By: #### H EMOG, BMP3, TROPN, LIPD2, TSH4, HA1C2 ####[address] [address] MCV 89.7 fL Normal 79.0-98.0 [facility] Comment on above: Performed By: #### H EMOG, BMP3, TROPN, LIPD2, TSH4, HA1C2 ####[address] [address] Platelet mean volume (PMV) 8.2 fL Normal 7.4-10.4 [facility] Comment on above: Performed By: #### H EMOG, BMP3, TROPN, LIPD2, TSH4, HA1C2 ####[address] [address] Platelets 238 10*3/uL Normal 140-440 [facility] Comment on above: Performed By: #### H EMOG, BMP3, TROPN, LIPD2, TSH4, HA1C2 ####[address] [address] WBC (Leukocytes) 9.1 10*3/uL Normal 3.6-10.7 [facility] Comment on above: Performed By: #### H EMOG, BMP3, TROPN, LIPD2, TSH4, HA1C2 ####[address] [address] Lipid Panelon 02-14-2017 Cholesterol to HDL Ratio 3 {ratio} Normal [facility] Comment on above: Result Comment: Ref Range:< 3 Low Risk for CHD3-6 Mod Risk for CHD> 6 High Risk for CHD Performed By: #### H EMOG, BMP3, TROPN, LIPD2, TSH4, HA1C2 ####[address] [address] HDL Cholesterol 42 mg/dL Normal 40-59 [facility] Comment on above: Performed By: #### H EMOG, BMP3, TROPN, LIPD2, TSH4, HA1C2 ####[address] [address] Low Density Lipoprotein 48 mg/dL Normal <100 [facility] Comment on above: Performed By: #### H EMOG, BMP3, TROPN, LIPD2, TSH4, HA1C2 ####[address] [address] Cholesterol 125 mg/dL Normal < 200 [facility] Comment on above: Performed By: #### H EMOG, BMP3, TROPN, LIPD2, TSH4, HA1C2 ####[address] [address] Triglyceride 176 mg/dL Abnormal <150 [facility] Comment on above: Performed By: #### H EMOG, BMP3, TROPN, LIPD2, TSH4, HA1C2 ####[address] [address] Thyroid Stim. Hormoneon 01-22 Thyroid Stim. Hormone 1.430 uU/mL Normal 0.358-3.740 [facility] Comment on above: Performed By: #### H EMOG, BMP3, TROPN, LIPD2, TSH4, HA1C2 ####[address] [address] Troponin Ion 06-25-2017 Troponin I.cardiac mass conc 0.544 ng/mL High 0.000-0.045 [facility] Comment on above: Result Comment: 0.04 6 - 0.400 = Indeterminate> 0.400 = Consider Myocardial Injury Performed By: #### T ROPN ####[address] [address] Troponin I.cardiac mass conc 0.709 ng/mL High 0.000-0.045 [facility] Comment on above: Result Comment: 0.04 6 - 0.400 = Indeterminate> 0.400 = Consider Myocardial Injury Performed By: #### T ROPN ####[place] [address] Troponin I.cardiac mass conc 0.844 ng/mL High 0.000-0.045 [facility] Comment on above: Result Comment: 0.04 6 - 0.400 = Indeterminate> 0.400 = Consider Myocardial Injury Performed By: #### H EMOG, BMP3, TROPN, LIPD2, TSH4, HA1C2 ####[address] [address] Urinalysis,Macroon 7 Bilirubin (direct) Negative Normal Negative [facility] Comment on above: Performed By: #### U AMAC ####[address] [address] Ketone,Urine Negative Normal Negative [facility] Comment on above: Performed By: #### U AMAC ####[address] [address] Occult Blood,Ur Negative Normal Negative [facility] Comment on above: Performed By: #### U AMAC ####[address] [address] Specific [place],Urine 1.010 Normal 1.005-1.030 S [facility] Comment on above: Performed By: #### U AMAC ####[address] [address] Total Protein,Urine Negative Normal Negative [facility] Comment on above: Performed By: #### U AMAC ####[place] [address] [place] [address] Urine, appearance clear Normal Clear [facility] Comment on above: Performed By: #### U AMAC ####[place] [address] [place] [address] Urine, color p. yel Normal Lt. Yellow [facility] Comment on above: Performed By: #### U AMAC ####[place] [address] [place] [address] Urine, glucose presence 1000 mg/dL Normal Negative [facility] Comment on above: Performed By: #### U AMAC ####[place] [address] [place] [address] Urine, nitrite presence Negative Normal Negative [facility] Comment on above: Performed By: #### U AMAC ####[place] [address] [place] [address] Urine, pH 5.0 [pH] Normal 5.0-8.0 [facility] Comment on above: Performed By: #### U AMAC ####[place] [address] [place] [address] Urine, urobilinogen 1 mg/dL Normal 0-1 [facility] Comment on above: Performed By: #### U AMAC ####[place] [address] [place] [address] WBC (Leukocytes) Negative Normal Negative [facility] Comment on above: Performed By: #### U AMAC ####[place] [address] [place] [address] Culture, urine Bacteria identified Cx Nom (U) Presumptive E. coli [facility] Work Phone: Vital Signs Date Time Vital Sign Value Performing Clinician Mable monge 03-18-2025 12:23-0400 Body temperature 98.3 [degF] Dr. Candelario Santana MD Work Phone: [facility] 03-18-2025 12:23-0400 Diastolic blood pressure 51 mm[Hg] Dr. Candelario Santana MD Work Phone: [facility] 03-18-2025 12:23-0400 Heart rate 69 /min Dr. Candelario Santana MD Work Phone: 7(329)662-184671 [place] [address] 03-18-2025 12:23-0400 Respiratory rate 12 /min Dr. Candelario Santana MD Work Phone: 6(399)396-912671 [place] [address] 03-18-2025 12:23-0400 SaO2% (BldA) [Mass fraction] 100 % Dr. Candelario Santana MD Work Phone: 9(054)737-360871 [place] [address] 03-18-2025 12:23-0400 Systolic blood pressure 118 mm[Hg] Dr. Candelario Santana MD Work Phone: 3(246)154-924771 [place] [address] 03-18-2025 10:21-0400 Body height 157.[address] Candelario Santana MD Work Phone: 0(139)559-001771 [place] [address] 03-18-2025 10:21-0400 Body mass index (BMI) [Ratio] 23.1 kg/m2 Dr. Candelario Santana MD Work Phone: 7(817)863-410071 [place] [address] 03-18-2025 10:21-0400 Body weight 57.[address] Candelario Santana MD Work Phone: 7(608)146-875671 [place] [address] 03-09-2025 08:10-0400 Diastolic blood pressure 46 mm[Hg] Dr. Candelario Santana MD Work Phone: 0(455)531-483971 [place] [address] 03-09-2025 08:10-0400 Heart rate 63 /min Dr. Candelario Santana MD Work Phone: 6(966)285-676871 [place] [address] 03-09-2025 08:10-0400 Systolic blood pressure 146 mm[Hg] Dr. Candelario Santana MD Work Phone: 3(421)476-961071 [place] [address] 03-09-2025 06:00-0400 Body temperature 97.9 [degF] Dr. Candelario Santana MD Work Phone: 9(238)126-088271 [place] [address] 03-09-2025 06:00-0400 Respiratory rate 16 /min Dr. Candelario Santana MD Work Phone: 3(569)792-058971 [place] [address] 03-09-2025 06:00-0400 SaO2% (BldA) [Mass fraction] 99 % Dr. Candelario Santana MD Work Phone: 5(871)113-150664 [place] [address] 03-07-2025 06:00-0400 Body mass index (BMI) [Ratio] 23.5 kg/m2 Dr. Candelario Santana MD Work Phone: 9(329)906-599471 [place] [address] 03-07-2025 06:00-0400 Body weight 58.[address] Candelario Santana MD Work Phone: 9(434)835-449671 [place] [address] 03-04-2025 13:25-0400 Body height 157.[address] Candelario Santana MD Work Phone: 5(348)060-822771 [place] [address] 02-21-2025 12:07-0400 Body temperature 97.8 [degF] Dr. Candelario Santana MD Work Phone: 4(182)239-130071 [place] [address] 02-21-2025 12:07-0400 Diastolic blood pressure 56 mm[Hg] Dr. Candelario Santana MD Work Phone: 8(489)731-020171 [place] [address] 02-21-2025 12:07-0400 Heart rate 81 /min Dr. Candelario Santana MD Work Phone: 9(385)975-613471 [place] [address] 02-21-2025 12:07-0400 Respiratory rate 16 /min Dr. Candelario Santana MD Work Phone: 9(502)437-739071 [place] [address] 02-21-2025 12:07-0400 SaO2% (BldA) [Mass fraction] 100 % Dr. Candelario Santana MD Work Phone: 8(093)706-106771 [place] [address] 02-21-2025 12:07-0400 Systolic blood pressure 122 mm[Hg] Dr. Candelario Santana MD Work Phone: 3(559)632-568271 [place] [address] 02-19-2025 12:27-0400 Body height 154.[address] Candelario Santana MD Work Phone: 2(362)323-214971 [place] [address] 02-19-2025 12:27-0400 Body weight 57.[address] Candelario Santana MD Work Phone: 2(702)557-097971 [place] [address] 02-16-2025 08:45-0400 Inhaled oxygen flow rate 2 L/min Dr. Candelario Santana MD Work Phone: [facility] 02-15-2025 16:04-0400 Body mass index (BMI) [Ratio] 23.8 kg/m2 Dr. Candelario Santana MD Work Phone: [facility] 02-15-2025 15:32-0400 Body temperature 98.6 [degF] Dr. Candelario Santana MD Work Phone: 2(368)459-131064 [place] [address] 02-15-2025 15:32-0400 Diastolic blood pressure 66 mm[Hg] Dr. Candelario Santana MD Work Phone: 8(366)288-492664 [place] [address] 02-15-2025 15:32-0400 Heart rate 78 /min Dr. Candelario Santana MD Work Phone: 3(701)859-261664 [place] [address] 02-15-2025 15:32-0400 Respiratory rate 15 /min Dr. Candelario Santana MD Work Phone: 9(422)083-292464 [place] [address] 02-15-2025 15:32-0400 SaO2% (BldA) [Mass fraction] 100 % Dr. Candelario Santana MD Work Phone: 2(132)172-107064 [place] [address] 02-15-2025 15:32-0400 Systolic blood pressure 113 mm[Hg] Dr. Candelario Santana MD Work Phone: [facility] 02-15-2025 13:11-0400 Body height 154.[address] Candelario Santana MD Work Phone: [facility] 02-15-2025 13:11-0400 Body mass index (BMI) [Ratio] 26.9 kg/m2 Dr. Candelario Santana MD Work Phone: [facility] 02-15-2025 13:11-0400 Body weight 64.[address] Candelario Santana MD Work Phone: [facility] 11-24-2022 14:15-0400 Body temperature 97.4 [degF] Dr. Candelario Santana Work Phone: [facility] 11-24-2022 14:15-0400 Diastolic blood pressure 61 mm[Hg] Dr. Candelario Santana Work Phone: [facility] 11-24-2022 14:15-0400 Heart rate 69 /min Dr. Candelario Santana Work Phone: [facility] 11-24-2022 14:15-0400 Respiratory rate 16 /min Dr. Candelario Santana Work Phone: [facility] 11-24-2022 14:15-0400 SaO2% (BldA) [Mass fraction] 100 % Dr. Candelario Santana Work Phone: [facility] 11-24-2022 14:15-0400 Systolic blood pressure 106 mm[Hg] Dr. Candelario Santana Work Phone: 6(860)022-357064 [place] [address] 11-24-2022 11:22-0400 Body height 154.[address] Candelario Santana Work Phone: 8(654)043-110564 [place] [address] 11-24-2022 11:22-0400 Body mass index (BMI) [Ratio] 26 kg/m2 Dr. Candelario Santana Work Phone: 7(767)843-195064 [place] [address] 11-24-2022 11:22-0400 Body weight 62.[address] Candelario Santana Work Phone: 3(470)369-277164 [place] [address] 06-18-2022 15:27-0400 Body height 154.[address] Candelario Santana Work Phone: 8(904)714-701864 [place] [address] 06-18-2022 15:27-0400 Body mass index (BMI) [Ratio] 26.3 kg/m2 Dr. Candelario Santana Work Phone: [facility] 06-18-2022 15:27-0400 Body weight 63.[address] Candelario Santana Work Phone: 4(046)577-626064 [place] [address] 03-21-2022 09:34-0400 Body temperature 97.8 [degF] Dr. Candelario Santana Work Phone: [facility] Work Phone: 03-21-2022 09:34-0400 Diastolic blood pressure 66 mm[Hg] Dr. Candelario Santana Work Phone: [facility] Work Phone: 03-21-2022 09:34-0400 Heart rate 73 /min Dr. Candelario Santana Work Phone: [facility] Work Phone: 03-21-2022 09:34-0400 Respiratory rate 18 /min Dr. Candelario Santana Work Phone: [facility] Work Phone: 03-21-2022 09:34-0400 SaO2% (BldA) [Mass fraction] 97 % Dr. Candelario Santana Work Phone: [facility] Work Phone: 03-21-2022 09:34-0400 Systolic blood pressure 127 mm[Hg] Dr. Candelario Santana Work Phone: [facility] Work Phone: 03-21-2022 06:00-0400 Body weight 69.[address] Candelario Santana Work Phone: [facility] Work Phone: 03-20-2022 10:23-0400 Body height 154.[address] Candelario Santana Work Phone: [facility] Work Phone: 03-20-2022 10:23-0400 Body mass index (BMI) [Ratio] 25.8 kg/m2 Dr. Candelario Santana Work Phone: [facility] Work Phone: 03-20-2022 04:57-0400 Body temperature 98 [degF] Dr. Candelario Santana Work Phone: [facility] Work Phone: 03-20-2022 04:57-0400 Diastolic blood pressure 75 mm[Hg] Dr. Candelario Santana Work Phone: [facility] Work Phone: 03-20-2022 04:57-0400 Heart rate 77 /min Dr. Candelario Santana Work Phone: [facility] Work Phone: 03-20-2022 04:57-0400 Respiratory rate 16 /min Dr. Candelario Santana Work Phone: [facility] Work Phone: 03-20-2022 04:57-0400 SaO2% (BldA) [Mass fraction] 97 % Dr. Candelario Santana Work Phone: [facility] Work Phone: 03-20-2022 04:57-0400 Systolic blood pressure 98 mm[Hg] Dr. Candelario Santana Work Phone: [facility] Work Phone: 03-20-2022 02:07-0400 Body height 154.[address] Candelairo Santana Work Phone: [facility] Work Phone: 03-20-2022 02:07-0400 Body mass index (BMI) [Ratio] 28 kg/m2 Dr. Candelario Santana Work Phone: [facility] Work Phone: 03-20-2022 02:07-0400 Body weight 67.[address] Candelario Santana Work Phone: [facility] Work Phone: Encounters Encounter Date Encounter Type Care Provider Facility Start: 05-11-2025 ambulatory Candelario Chi Max [facility] Start: 04-26-2025 ambulatory Candelario Chi Max [facility] Start: 04-10-2025 ambulatory Candelario Chi Max [facility] Start: 03-29-2025 End: 03-29-[address] Steve Werner MD -[facility] Start: 03-29-2025 End: 03-29-[address] Candelario Santana MD Work Phone: [facility] Start: 03-22-2025 ambulatory Candelario Chi Max [facility] Start: 03-20-2025 ambulatory Candelario Chi Max Facility:[facility] Start: 03-20-[address] Pineda shen MD -[facility] Start: 03-18-2025 End: 03-18-2025 Emergency department patient visit Dr. Candelario Santana MD Work Phone: -Emergency Department Work Phone: Start: 03-13-2025 ambulatory Pineda [facility] ity:[facility] Start: 03-13-[address] Pineda shen MD -[facility] Start: 03-08-2025 Non-patient / Non-visit Dr. Katie Bah DO [facility] Work Phone: Start: 03-06-2025 Non-patient / Non-visit Dr. Katie Bah DO [facility] Work Phone: Start: 03-05-2025 Non-patient / Non-visit [facility] Start: 03-05-2025 Non-patient / Non-visit Dr. Katie Bah [facility] Work Phone: Start: 03-01-2025 ambulatory Katie Bah Facility:[facility] Start: 03-01-2025 Non-patient / Non-visit Dr. Baldev Kaba MD -[facility] Start: 03-01-2025 Non-patient / Non-visit Dr. Katie Bah DO [facility] Work Phone: Start: 02-28-2025 Non-patient / Non-visit Dr. Katie Bah DO [facility] Work Phone: Start: 02-27-2025 ambulatory Candelario Chi Max [facility] Start: 02-27-2025 Non-patient / Non-visit Dr. Steve Werner MD -[facility] Start: 02-26-2025 Non-patient / Non-visit Dr. Katie Bah DO [facility] Work Phone: Start: 02-23-2025 Non-patient / Non-visit Lizet Judyjaquan [facility] Work Phone: Start: 02-22-2025 Non-patient / Non-visit Katie Kimjaquan [facility] Work Phone: Start: 02-21-2025 ambulatory Katie Bah [place] Start: 02-21-2025 End: 03-09-2025 Evaluation and management of inpatient Dr. Katie JettLizet Sementi -Rehab Unit Work Phone: Start: 02-21-2025 Non-patient / Non-visit Dr. Gia [facility] Work Phone: Start: 02-20-2025 Non-patient / Non-visit Dr. G[facility] Work Phone: Start: 02-19-2025 Non-patient / Non-visit Dr. Gia [facility] Work Phone: Start: 02-19-2025 [facility] / [facility] Start: 02-18-2025 Non-patient / Non-visit Dr. Gia [facility] Work Phone: Start: 02-17-2025 Non-patient / [facility] Start: 02-17-2025 Non-patient / Non-visit Dr. Gia [facility] Work Phone: Start: 02-16-2025 Non-patient / [facility] Start: 02-16-2025 Non-patient / Non-[facility] Work Phone: Start: 02-16-2025 End: 02-16-2025 ambulatory Lakeshia Chace [place] Start: 02-16-2025 End: 02-16-2025 Non-patient / Non-visit [facility] Work Phone: Start: 02-15-2025 ambulatory Lakeshia Mas [facility] Start: 02-15-2025 End: 02-21-2025 Evaluation and management of inpatient Dr. Lakeshia Mas MD -Medical [facility] 3 Work Phone: Start: 12-27-2024 End: 12-27-[address] Candelario Santana MD Work Phone: [facility] Work Phone: Start: 12-27-2024 End: 12-27-[address] Candelario Santana MD -Laboratory Work Phone: Start: 12-27-2024 End: 12-27-20[facility] Start: 09-25-2024 End: 09-25-[address] Candelario Santana MD -Laboratory Work Phone: Start: 09-25-2024 End: 09-25-2024 ambulatory [facility] Facility:[facility] Start: 07-19-2024 ambulatory [facility] Facility:[facility] Start: 06-21-2024 End: 06-21-2024 ambulatory [facility] Facility:[facility] Start: 12-20-2023 End: 12-20-2023 ambulatory [facility] Work Phone: Start: 12-20-2023 End: 12-20-2023 Patient encounter procedure [facility] Work Phone: Start: 09-21-2023 End: 09-21-2023 ambulatory [facility] Work Phone: Start: 09-21-2023 End: 09-21-2023 Patient encounter procedure [facility], Phy Office 3rd Flr Start: 06-15-2023 End: 06-15-2023 Patient encounter procedure [facility] Phy Office 3rd Flr Start: 03-17-2023 End: 03-17-[address] Candelario Santana Work Phone: [facility] Work Phone: Start: 03-17-2023 End: 03-17-[address] [facility] Start: 12-21-2022 End: 12-21-[address] Candelario Santana Work Phone: [facility] Work Phone: Start: 12-21-2022 End: 12-21-[address] [facility] Office 3rd Flr Start: 12-16-2022 End: 12-16-[address] Candelario Santana Work Phone: [facility] Work Phone: Start: 12-16-2022 End: 12-16-[address] [facility] Office 3rd Flr Start: 12-09-2022 End: 12-09-[address] Candelario Santana Work Phone: [facility] Start: 11-24-2022 Non-patient / Non-visit Dr. Candelario Santana Work Phone: [facility] Start: 11-24-2022 End: 11-24-2022 Non-patient / Non-visit Dr. Candelario Santana Work Phone: [facility] Start: 11-24-2022 End: 11-24-2022 Admission to same day surgery center Dr. Candelario Santana Work Phone: [facility] Start: 11-24-2022 End: 11-24-[address] Candelario Santana Work Phone: [facility] Work Phone: Start: 09-16-2022 End: 09-16-[address] Candelario Santana Work Phone: [facility] Work Phone: Start: 09-16-2022 End: 09-16-[address] Candelario Santana Work Phone: [facility], y Office 3rd Flr Start: 09-10-2022 End: 09-10-[address] Candelario Santana Work Phone: [facility] Start: 07-08-2022 End: 07-08-[address] Candelario Santana Work Phone: [facility] Work Phone: Start: 07-08-2022 End: 07-08-[address] Candelario Santana Work Phone: [facility] Office 3rd Flr Start: 06-18-2022 End: 06-18-[address] Candelario Santana Work Phone: [facility] Start: 05-25-2022 End: 05-25-[address] Candelario Santana Work Phone: [facility] Work Phone: Start: 05-25-2022 End: 05-25-[address] Candelario Santana Work Phone: [facility], [facility] Office 3rd Flr Start: 04-09-2022 End: 04-09-[address] Candelario Santana Work Phone: [facility] Work Phone: Start: 04-09-2022 End: 04-09-[address] Candelario Santana Work Phone: [facility], [facility] Office 3rd Flr Start: 03-21-2022 Non-patient / Non-visit Dr. Candelario Santana Work Phone: [facility] Start: 03-20-2022 Non-patient / Non-visit Dr. Candelario Santana Work Phone: [facility] Start: 03-20-2022 End: 03-21-2022 Evaluation and management of inpatient Dr. [facility] Start: 03-20-2022 Non-patient / Non-visit Dr. Candelario Santana Work Phone: [facility] Start: 12-22-2021 End: 12-22-2021 [facility] Start: 12-15-2021 End: 12-15-2021 [facility] Start: 09-24-2021 End: 09-24-2021 [facility] Start: 09-15-2021 End: 09-15-2021 [facility] Start: 03-05-2017 Ambulatory Joe Lindatobin [facility] Start: 02-18-2017 End: 02-19-2017 Ambulatory [facility] ID REFERRING Facility:[facility] Start: 02-13-2017 Emergency department patient visit Abhay Jarvis [facility] Procedures Date Procedure Procedure Detail Performing Clinician Start: 03-18-2025 CT of head without contrast Dr. Candelario Santana MD Work Phone: Start: 03-05-[address] Candelario [...] Work Phone: Comment on above: Performed at: [place] [id number] Director: Danielito العلي PhD, Phone: [phone] Start: 02-16-2025 Vitamin D, 25-hydroxy measurement Dr. [...] Treatment Date Care Activity Detail Author Start: 03-29-2025 Plain radiography of pelvis Pelvis 1 or 2 Views [facility] Start: 03-29-2025 XR Pelvis 1 or 2 Views [facility] Start: 03-29-2025 Plain X-ray of hip Hip uni 4+ views with Pelvis [facility] Start: 03-29-2025 XR Hip Views [facility] Start: 03-29-2025 Plain X-ray of femur Femur Min 2 Views [facility] Start: 03-29-2025 XR Femur 2 Views [facility] Start: 03-18-2025 [facility] Start: 03-09-2025 Patient discharge [facility] Start: 03-02-2025 [facility] Start: 02-23-2025 Introduction of urinary catheter [facility] Start: 02-22-2025 Speech therapy assessment [facility] Start: 02-21-2025 End: 02-22-2025 Patient referral to dietitian [facility] Start: 02-21-2025 Following clinical pathway protocol [facility] Start: 02-21-2025 Recommendation to continue with treatment [facility] Start: 02-21-2025 Implementation of planned interventions [facility] Start: 02-21-2025 Referral to service [facility] Start: 02-21-2025 Urinary bladder training [facility] Start: 02-21-2025 Admission procedure [facility] Start: 02-21-2025 Measuring intake and output [facility] Start: 02-21-2025 Referral to occupational therapist [facility] Start: 02-21-2025 Vital signs measurements [facility] Start: 02-21-2025 End: 02-21-2025 [facility] Start: 02-21-2025 Patient discharge [facility] Start: 02-21-2025 Application of device [facility] Start: 02-17-2025 End: 02-17-2025 [facility] Start: 02-17-2025 Ambulation therapy management [facility] Start: 02-17-2025 Application of device [facility] Start: 02-17-2025 Exercises [facility] Start: 02-17-2025 Following clinical pathway protocol [facility] Start: 02-17-2025 Introduction of urinary catheter [facility] Start: 02-17-2025 Neurovascular assessment [facility] Start: 02-17-2025 Patient education [facility] Start: 02-17-2025 Provision of activity privileges [facility] Start: 02-17-2025 Referral to occupational therapist [facility] Start: 02-17-2025 Referral to service [facility] Start: 02-17-2025 Vital signs measurements [facility] Start: 02-17-2025 Wound care [facility] Start: 02-17-2025 Ambulation therapy management [facility] Start: 02-16-2025 Administration of blood product [facility] Start: 02-16-2025 [facility] Start: 02-16-2025 Open reduction of fracture of femur with internal fixation ORIF, Hip, Gamma Nail (Left) [facility] Start: 02-15-2025 Application of intermittent pneumatic compression device [facility] Start: 02-15-2025 Following clinical pathway protocol [facility] Start: 02-15-2025 Assessment of risk of venous thromboembolism [facility] Start: 02-15-2025 Care regimes management [facility] Start: 02-15-2025 Consultation [facility] Start: 02-15-2025 Inhalation therapy procedure [facility] Start: 02-15-2025 Insertion of catheter into peripheral vein [facility] Start: 02-15-2025 Notification of physician [facility] Start: 02-15-2025 Providing care according to standard [facility] Start: 02-15-2025 Referral to occupational therapist [facility] Start: 02-15-2025 Referral to service [facility] Start: 02-15-2025 End: 02-15-2025 [facility] Start: 02-15-2025 Verification routine [facility] Start: 02-15-2025 Admission procedure [facility] Start: 02-15-2025 Hospital admission, emergency, from emergency room, medical nature [facility] Start: 02-15-2025 [facility] Start: 02-15-2025 Patient referral to dietitian [facility] Start: 11-24-2022 Anesthesia upper gi endoscopic px ercp ANES UPR GI NDSC PX ERCP [facility] Start: 11-24-2022 Ercp remove calculi/debris biliary/pancreas duct ERCP REMOVE DUCT CALCULI [facility] Start: 11-24-2022 Ercp remove foreign body/stent biliary/panc duct ERCP REMOVE FORGN BODY DUCT [facility] Start: 11-24-2022 Ercp w/sphincterotomy/papillotomy ENDO CHOLANGIOPANCREATOGRAPH [facility] Start: 11-24-2022 Endoscopic retrograde cholangiopancreatography ERCP Biliary/Pancreas [facility] Start: 11-24-2022 RF Guidance for endoscopy of Biliary ducts and Pancreatic duct-- W contrast retrograde [facility] Start: 11-24-2022 Patient discharge [facility] Start: 03-21-2022 Patient discharge [facility] Work Phone: Start: 03-20-2022 Application of intermittent pneumatic compression device [facility] Work Phone: Start: 03-20-2022 Catheterization of vein [facility] Work Phone: Start: 03-20-2022 Following clinical pathway protocol [facility] Work Phone: Start: 03-20-2022 Assessment of risk of venous thromboembolism [facility] Work Phone: Start: 03-20-2022 Care regimes management [facility] Work Phone: Start: 03-20-2022 Fall prevention [facility] Work Phone: Start: 03-20-2022 Incentive spirometry [facility] Work Phone: Start: 03-20-2022 Inhalation therapy procedure [facility] Work Phone: Start: 03-20-2022 Insertion of catheter into peripheral vein [facility] Work Phone: Start: 03-20-2022 Introduction of urinary catheter [facility] Work Phone: Start: 03-20-2022 Measuring intake and output [facility] Work Phone: Start: 03-20-2022 Oxygen therapy [facility] Work Phone: Start: 03-20-2022 Providing care according to standard [facility] Work Phone: Start: 03-20-2022 Provision of activity privileges [facility] Work Phone: Start: 03-20-2022 Referral to gastroenterology service [facility] Work Phone: Start: 03-20-2022 Referral to service [facility] Work Phone: Start: 03-20-2022 [facility] Work Phone: Start: 03-20-2022 Verification routine [facility] Work Phone: Start: 03-20-2022 Admission procedure [facility] Work Phone: Start: 03-20-2022 [facility] Work Phone: Start: 03-20-2022 Patient referral to dietitian [facility] Work Phone: Bacteria identified in Urine by Culture Urine Culture [facility] Work Phone: Cardiac event recording [facility] DXA Bone [Mass/Area] Bone density [facility] Patient Education ED Head Injury (Adult) [facility] Work Phone: Patient referral [facility] Work Phone: [facility] Work Phone: Immunizations Immunization Date Immunization Notes Care Provider Edgardo amaral 09-15-2021 influenza, injectabl e, quadrivalent, preservative free Dr. Candelario Santana MD Work Phone: [facility] 05-27-2020 influenza, injectabl e, quadrivalent, preservative free Dr. Candelario Santana MD Work Phone: [facility] 05-05-2017 influenza, injectabl e, quadrivalent, preservative free Dr. Candelario Santana MD Work Phone: [facility] 04-29-2016 influenza, injectabl e, quadrivalent, preservative free Dr. Candelario Santana MD Work Phone: [facility] 06-23-2012 influenza, seasonal, injectable, preservative free Dr. Candelario Santana MD Work Phone: [facility] Payers Date Payer Category Payer Medicare [id number] 2024 Self-pay [id number] Private Health Insurance Unknown [id number] 2.16.8 40.1.238278.3.579.2.462 Unknown [id number] 2.16.8 40.1.450981.3.579.2.462 Unknown [id number] 2.16.8 40.1.168606.3.579.2.462 Unknown [id number] 2.16.8 40.1.901996.3.579.2.462 Unknown [id number] 2.16.8 40.1.182723.3.579.2.462 Unknown [id number] 2.16.8 40.1.858131.3.579.2.462 Unknown [id number] 2.16.8 40.1.482078.3.579.2.462 Unknown [id number] 2.16.8 40.1.708849.3.579.2.462 Unknown [id number] 2.16.8 40.1.433306.3.579.2.462 Unknown [id number] 2.16.8 40.1.245151.3.579.2.462 Unknown [id number] 2.16.8 40.1.137184.3.579.2.462 Unknown [id number] 2.16.8 40.1.566812.3.579.2.462 Unknown [id number] 2.16.8 40.1.596920.3.579.2.462 Unknown [id number] 2.16.8 40.1.019696.3.579.2.462 Unknown [id number] 2.16.8 40.1.552961.3.579.2.462 Unknown [id number] 2.16.8 40.1.456184.3.579.2.462 Unknown [id number] 2.16.8 40.1.608334.3.579.2.462 Unknown [id number] 2.16.8 40.1.634019.3.579.2.462 Unknown [id number] 2.16.8 40.1.539799.3.579.2.462 Unknown [id number] 2.16.8 40.1.450747.3.579.2.462 Unknown [id number] 2.16.8 40.1.293975.3.579.2.462 Unknown [id number] 2.16.8 40.1.172711.3.579.2.462 Unknown [id number] 2.16.8 40.1.042664.3.579.2.462 Unknown [id number] 2.16.8 40.1.827893.3.579.2.462 Unknown [id number] 2.16.8 40.1.072470.3.579.2.462 Unknown [id number] 2.16.8 40.1.281156.3.579.2.462 Unknown [id number] 2.16.8 40.1.641393.3.579.2.462 Unknown [id number] 2.16.8 40.1.636763.3.579.2.462 Unknown [id number] 2.16.8 40.1.160157.3.579.2.462 Unknown [id number] 2.16.8 40.1.090808.3.579.2.462 Unknown [id number] 2.16.8 40.1.957943.3.579.2.462 Unknown [id number] 2.16.8 40.1.740357.3.579.2.462 Unknown [id number] 2.16.8 40.1.852090.3.579.2.462 Unknown [id number] 2.16.8 40.1.471365.3.579.2.462 Unknown [id number] 2.16.8 40.1.926066.3.579.2.462 Unknown [id number] 2.16.8 40.1.979629.3.579.2.462 Unknown [id number] 2.16.8 40.1.662786.3.579.2.462 Unknown [id number] 2.16.8 40.1.842507.3.579.2.462 Social History Date Type Detail Facility Start: 10-22-2020 End: 12-09-2022 Tobacco smoking status MDIS Unknown if ever smoked [facility] Start: 02-13-2017 None [facility] Start: 10-22-2020 Non-smoker [facility] Start: 1945 Sex Assigned At Female [facility] Start: 12-09-2022 End: 03-18-2025 Tobacco smoking status NHIS Never smoked tobacco (finding) [facility] NEGATED: Highlighted row [facility] Medical Equipment Procedure Code Equipment Code Equipment Origin al Text Equipment Identifier Dates ORIF, hip, using Gamma nail ([id number]) Orthopaedic bone screw, non-bioabsorbable, sterile [id number] FDA Start: 02-16-2025 ORIF, hip, using Gamma nail ([id number]) Orthopaedic bone screw, non-bioabsorbable, sterile ()[id number] FDA Start: 02-16-2025 ORIF, hip, using Gamma nail Femur intramedullary nail ()[id number] FDA Start: 02-16-2025 ORIF, hip, using Gamma nail Orthopaedic bone screw (non-sliding) ()[id number] FDA Start: 02-16-2025 ERCP (endoscopic retrograde [...] Activity Abili ty With Assist of 2 [facility] Work Phone: 03-09-2025 Functional status Ambulates;Bathroom Priv ilege [facility] Work Phone: 02-21-2025 Functional status Ambulates;Bedr est;Bathroom Privilege [facility] Work Phone: 03-21-2022 Functional status Ambulates [facility] Work Phone: Mental Status Date Assessment Result Facility 03-09-2025 Cognitive function Voice/Name [facility] Work Phone: 02-21-2025 Cognitive function Voice/Name [facility] Work Phone: 11-24-2022 Cognitive function Voice/Name [facility] Work Phone: 11-24-2022 Cognitive function Patient Orien tation Person;Place;Time [facility] Work Phone: 03-21-2022 Cognitive function Appropriate;Cooperativ e [facility] Work Phone: 03-20-2022 Cognitive function Awake;Alert;A ppropriate;Follo ws Commands [facility] Work Phone: Clinical Notes 11-24-2022 to 03-18-2025 Note Date & Type Note Facility 03-18-2025 Discharge summary Note Date/Time March 18, 2025 11:39am [facility] Medical Records Department [address] [place] [address] Emergency Department Summary 03/18/25 MR#: [id number] Acct: [id number] Name: SHASHI OSWALD Rep #:[id number] : 1945 79 From: Cj Ordonez MD PCP: Dr. Candelario Santana MD Status:REG E R Location: ED HPI History of Present Illness Chief Complaint: Fall Detail of Chief Complaint: Patient presents from nursing facility status post fall Informant: patient, EMS and SNF Onset/Context/Timing Onset: Today Mechanism/Context: Blunt Injury and Fall Location of pain/injuries: - (Paramedics list complains of shoulder pain she denies shoulder pain) Quality of Pain: Dull Location: Parietal occipital region on the left Current Severity: Mild Maximum Severity: Moderate Worsened by: Blunt head trauma Relieved by: Nothing Associated Symptoms Associated Symptoms: Positive for Amnesia; Negative for Parasthesias, Weakness, Loss of function, Inability to ambulate or Loss of consciousness Narrative Narrative: Patient is a 79-year-old woman. She presents from [facility]. She has history of Parkinson disease with falls. She is on Eliquis. She had an unwitnessed fall. She complains of head pain and headache. She doesremember the fall. She remembers hitting her head but not able to make anythingelse. She is normally disoriented to time. She denies neck pain. She denies paresthesia, anesthesia or motor weakness upper or lower extremity. She denies trouble with her speech or swallowing. She denies right or left shoulder pain. She denies chest pain. She denies any neck pain. Prior similar symptoms: Yes Recent Illness/Hospitalization: No PFSH [facility] Medical History Cognitive dysfunction History of hemorrhoids Murmur, cardiac Hyperlipemia Hypothyroidism Diabetes mellitus, type 2 High total [...] 8 pain 02/21/25 02/21/25 Rx #0 tabs ergocalciferol (vitamin D2) 1,250 1,250 mcg PO Q7D sup plement #0 caps 02/21/25 Unknown Rx mcg (50,000 unit) capsule (Vitamin D2) apixaban 5 mg tablet (Eliquis) 2.5 mg (1/2 x 5 mg) PO BID DVT 03/08/25 Unknown Rx prophylaxis #1 TAB bisacodyl 10 mg rectal suppository 10 mg FL X1 PRN Con stipation #1 ea 03/08/25 Unknown Rx calcium carbonate 500 mg (2.5 x 200 mg calcium (500 03/08/25 Unknown Rx mg)) PO TIDCM #1 TAB diclofenac sodium 1 % topical gel 2 g topical BID #100 grams 03/08/25 Unknown Rx (Voltaren Arthritis Pain) levothyroxine 25 mcg tablet 25 mcg PO DAILY@0600 #1 TA B 03/08/25 Unknown Rx magnesium hydroxide 400 mg/5 mL 30 ml PO X1 PRN Consti pation #30 mL 03/08/25 Unknown Rx oral suspension melatonin 3 mg tablet 1.5 mg (1/2 x 3 mg) PO QHS # 1 TAB 03/08/25 Unknown Rx metformin 500 mg tablet 750 mg (1.5 x 500 mg) PO TAHIR LYCM 03/08/25 Unknown Rx #1 TAB metoprolol tartrate 25 mg tablet 25 mg PO BID #1 TAB 0 03/08/25 Unknown Rx nifedipine 30 mg tablet,extended 30 mg PO 1000 #1 TAB 03/08/25 Unknown Rx release 24 hr sennosides 8.6 mg-docusate sodium 2 tab PO BID #1 TAB 03/08/25 Unknown Rx 50 mg tablet (Stimulant Laxative Plus) tramadol 50 mg tablet 25 mg (1/2 x 50 mg) PO 03/08 Unknown Rx 0700,1400,2100 1 week #21 tabs Allergy/AdvReac Type Severity Reaction Status Date / Time Penicillins Allergy Intermediate Hives Verified 03/18/25 10:23 Family History Father Myocardial infarction Hypertension Heart disease Sister Breast cancer Mother CVA (cerebral vascular accident) Surgical History Status post hip surgery History of open reduction and internal fixation [...] safe at home: Yes ROS ROS ED Constitutional Constitutional ED: Denies chills, fever(s) or subjective Eyes Eyes: Denies blurry vision or change in vision ENT ENT ED: Denies ear pain or rhinorrhea Cardiovascular Cardiovascular: Denies chest pain or palpitations Respiratory/Chest Respiratory/Chest: Denies cough, dyspnea or dyspnea on exertion Gastrointestinal Gastrointestinal: Denies abdominal pain, nausea or vomiting Musculoskeletal Musculoskeletal: Denies back pain or neck pain Integumentary Denies Abrasions or rash Neurologic Neurologic: Reports headache(s); Denies paresthesias or weakness Hematologic/Lymphatic Hematologic/Lymphatic: Denies easy bleeding or easy bruising EXAM Physical Exam Const Vital Signs: 03/18/25 10:21 03/18/25 10:24 Temperature 98.3 F Temperature Source Oral Pulse Rate 72 Respiratory Rate 16 Respiratory Effort Normal Non-Labored Respiratory Depth Normal Blood Pressure 117/48 L Blood Pressure Mean 71 Pulse Ox 100 Oxygen Delivery Method Room Air Positive well nourished and well developed General Appearance ED: well developed and NAD HEENT Reports TM's clear HEENT Narrative: There is small contusion noted left occipital parietal area. There is no palpable depression. There is no clinical signs of basilar skull fracture. trauma and tenderness Nose: Negative for septum abnormal Tympanic Membrane ED: Yes TM's clear Eyes PERRL and EOMs intact bilaterally General Eye ED: Yes other Other Details: There is no subconjunctival hemorrhage. There is no nystagmus. Neck full ROM Neck Narrative: There is no midline tenderness. There is no paracervical tenderness. There is no evidence of trauma to the neck. General: Negative for tenderness Chest Wall palpation of chest normal Chest Narrative: Patient has a median sternotomy scar noted. This is well-healed. Resp normal respiratory effort and clear to auscultation bilaterally Cardio regular rhythm, S1 normal heart sound, S2 normal heart sound and no murmurs Rate: regular rate GI normal to inspection, nondistended, normoactive bowel sounds, non-tender, non-distended and no masses GI Narrative: There is no palpable pulsatile mass. There is no abdominal bruit. Palpation: soft Back/Spine normal to inspection and no thoracic nor lumbar tenderness Lumbar Spine / Lower Back: straight leg raise negative bilaterally Extremity normal to inspection and full ROM Extremity Narrative: There is no pain ovation of the left shoulder right clavicle. There is no pain ovation over the left or right AC joint. There is no pain ovation of the proximal humerus on the right or left. She has full active range of motion at the shoulder, elbow and wrist. Axillary, median, radial and ulnar function intact. Neuro No oriented x3 and CN's II-XII intact bilaterally [place] Coma Scale: document GCS findings Spontaneous Obeys Commands Confused 14 Sensorium / Orientation: oriented to person and oriented to place; Negative for oriented to time Plantar Reflex: Downgoing: left and Upgoing (positive Babinski): right Psych mental status grossly normal and thought process normal Skin no rashes or lesions noted, no wounds, skin turgor normal and no jaundice MDM MDM MDM Narrative Medical decision making narrative: Since patient has head trauma on Eliquis has a Babinski sign with no history of stroke need to entertain possibility of intracranial bleed i.e. subdural hematoma, epidural hematoma, traumatic subarachnoid hemorrhage and parenchymal contusion. For this reason CT of the head was obtained. She has no tenderness of her cervical spine full active range of motion is able to perceive even pain and light touch in my opinion she does not need x-ray of her neck. History & Record Review Additional record(s) reviewed:: Prior inpatient record (Recent discharge, March 08, discharge summary authored by Katie GROSS was reviewed. Discharge diagnoses debility, intertrochanteric fracture of left femur, hyponatremia, hypoosmolarity and hyponatremia. Vitamin D deficiency, hypothyroidism and Parkinson's disease), Prior ED visit and Prior labs Radiography Diagnostic Testing: Clinical Impression(s) from Imaging Studies Brain CT 03/18/25 10:29 IMPRESSION: No acute intracranial abnormalities. Reading Location: [facility] C-minus of the head reveals no evidence of fracture, subdural hematoma, epiduralhematoma, subarachnoid hemorrhage or traumatic contusion. There is no fluid noted in the sinuses per awaiting formal read by radiologist, 1103. The CT report was reviewed at 1137. Plan is to discharge back to [facility]. Discharge Plan Triage Chief Complaint: Fall ED Provider: Cj Ordonez Dx/Rx/DC Orders Clinical Impression: CHI (closed head injury), Debility, Anticoagulant long-term use, Injury due to fall, [place] coma scale score 13-15, at arrival to emergency department Instructions: ED Head Injury (Adult) Prescriptions: No Action losartan 50 mg tablet 50 mg PO DAILY carbidopa-levodopa 25-100 mg tablet 1 tab PO TID acetaminophen 500 mg Tablet 1,000 mg PO Q8 Qty: 0 0RF ergocalciferol (vitamin D2) [Vitamin D2] 1,250 mcg (50,000 unit) Capsule 1,250 mcg PO Q7D Qty: 0 0RF metformin 500 mg Tablet 750 mg PO DAILYCM Qty: 1 0RF melatonin 3 mg Tablet 1.5 mg PO QHS Qty: 1 0RF levothyroxine 25 mcg Tablet 25 mcg PO DAILY@0600 Qty: 1 0RF magnesium hydroxide 400 mg/5 mL Suspension 30 ml PO X1 PRN (Reason: Constipation) Qty: 30 0RF bisacodyl 10 mg Suppository 10 mg FL X1 PRN (Reason: Constipation) Qty: 1 0RF [...] Rx Instructions: apply BID to both knees Eliquis 5 mg Tablet 2.5 mg PO BID Qty: 1 0RF Rx Instructions: DC after the last dose on 03/22/25 Primary Care Provider: Candelario Santana Chi Referrals: Candelario Santana Chi, MD [Primary Care Provider] - As Needed Activity Restrictions/Additional Instructions: Hold next 3 doses of Eliquis Print Language: Haitian Disposition Disposition: Home, Self Care What to do if you have Problems For any increased pain, shortness of breath, bleeding, nausea or vomiting, chestpain, or any unexpected problems, contact your Primary Care Provider. Call [facility] ([phone]) or report to the closest Emergency Room. Call 911 if necessary. 03/18/25 1139 <Electronically signed by Cj Ordonez MD> Cosigner Signature (if applicable): CC: Dr. Candelario Santana MD ~ Signed [facility] Work Phone: [phone]) 297-184407-27-2025 Discharge summary [facility] Medical Records Department [address] [place] [address] Emergency Department Summary 03/18/25 MR#: [id number] Acct: [id number] Name: SHASHI OSWALD Rep #:[id number] : 1945 79 From: Cj Ordonez MD PCP: Dr. Candelario Santana MD Status:REG E R Location: ED HPI History of Present Illness Chief Complaint: Fall Detail of Chief Complaint: Patient presents from nursing facility status post fall Informant: patient, EMS and SNF Onset/Context/Timing Onset: Today Mechanism/Context: Blunt Injury and Fall Location of pain/injuries: - (Paramedics list complains of shoulder pain she denies shoulder pain) Quality of Pain: Dull Location: Parietal occipital region on the left Current Severity: Mild Maximum Severity: Moderate Worsened by: Blunt head trauma Relieved by: Nothing Associated Symptoms Associated Symptoms: Positive for Amnesia; Negative for Parasthesias, Weakness, Loss of function, Inability to ambulate or Loss of consciousness Narrative Narrative: Patient is a 79-year-old woman. She presents from [facility]. She has history of Parkinson disease with falls. She is on Eliquis. She had an unwitnessed fall. She complains of head pain and headache. She doesremember the fall. She remembers hitting her head but not able to make anythingelse. She is normally disoriented to time. She denies neck pain. She denies paresthesia, anesthesia or motor weakness upper or lower extremity. She denies trouble with her speech or swallowing. She denies right or left shoulder pain. She denies chest pain. She denies any neck pain. Prior similar symptoms: Yes Recent Illness/Hospitalization: No PFSH [facility] Medical History Cognitive dysfunction History of hemorrhoids Murmur, cardiac Hyperlipemia Hypothyroidism Diabetes mellitus, type 2 High total [...] 8 pain 02/21/25 02/21/25 Rx #0 tabs ergocalciferol (vitamin D2) 1,250 1,250 mcg PO Q7D sup plement #0 caps 02/21/25 Unknown Rx mcg (50,000 unit) capsule (Vitamin D2) apixaban 5 mg tablet (Eliquis) 2.5 mg (1/2 x 5 mg) PO BID DVT 03/08/25 Unknown Rx prophylaxis #1 TAB bisacodyl 10 mg rectal suppository 10 mg FL X1 PRN Con stipation #1 ea 03/08/25 Unknown Rx calcium carbonate 500 mg (2.5 x 200 mg calcium (500 03/08/25 Unknown Rx mg)) PO TIDCM #1 TAB diclofenac sodium 1 % topical gel 2 g topical BID #100 grams 03/08/25 Unknown Rx (Voltaren Arthritis Pain) levothyroxine 25 mcg tablet 25 mcg PO DAILY@0600 #1 TA B 03/08/25 Unknown Rx magnesium hydroxide 400 mg/5 mL 30 ml PO X1 PRN Consti pation #30 mL 03/08/25 Unknown Rx oral suspension melatonin 3 mg tablet 1.5 mg (1/2 x 3 mg) PO QHS # 1 TAB 03/08/25 Unknown Rx metformin 500 mg tablet 750 mg (1.5 x 500 mg) PO TAHIR LYCM 03/08/25 Unknown Rx #1 TAB metoprolol tartrate 25 mg tablet 25 mg PO BID #1 TAB 0 03/08/25 Unknown Rx nifedipine 30 mg tablet,extended 30 mg PO 1000 #1 TAB 03/08/25 Unknown Rx release 24 hr sennosides 8.6 mg-docusate sodium 2 tab PO BID #1 TAB 03/08/25 Unknown Rx 50 mg tablet (Stimulant Laxative Plus) tramadol 50 mg tablet 25 mg (1/2 x 50 mg) PO 03/08 Unknown Rx 0700,1400,2100 1 week #21 tabs Allergy/AdvReac Type Severity Reaction Status Date / Time Penicillins Allergy Intermediate Hives Verified 03/18/25 10:23 Family History Father Myocardial infarction Hypertension Heart disease Sister Breast cancer Mother CVA (cerebral vascular accident) Surgical History Status post hip surgery History of open reduction and internal fixation [...] safe at home: Yes ROS ROS ED Constitutional Constitutional ED: Denies chills, fever(s) or subjective Eyes Eyes: Denies blurry vision or change in vision ENT ENT ED: Denies ear pain or rhinorrhea Cardiovascular Cardiovascular: Denies chest pain or palpitations Respiratory/Chest Respiratory/Chest: Denies cough, dyspnea or dyspnea on exertion Gastrointestinal Gastrointestinal: Denies abdominal pain, nausea or vomiting Musculoskeletal Musculoskeletal: Denies back pain or neck pain Integumentary Denies Abrasions or rash Neurologic Neurologic: Reports headache(s); Denies paresthesias or weakness Hematologic/Lymphatic Hematologic/Lymphatic: Denies easy bleeding or easy bruising EXAM Physical Exam Const Vital Signs: 03/18/25 10:21 03/18/25 10:24 Temperature 98.3 F Temperature Source Oral Pulse Rate 72 Respiratory Rate 16 Respiratory Effort Normal Non-Labored Respiratory Depth Normal Blood Pressure 117/48 L Blood Pressure Mean 71 Pulse Ox 100 Oxygen Delivery Method Room Air Positive well nourished and well developed General Appearance ED: well developed and NAD HEENT Reports TM's clear HEENT Narrative: There is small contusion noted left occipital parietal area. There is no palpable depression. Thereis no clinical signs of basilar skull fracture. trauma and tenderness Nose: Negative for septum abnormal Tympanic Membrane ED: Yes TM's clear Eyes PERRL and EOMs intact bilaterally General Eye ED: Yes other Other Details: There is no subconjunctival hemorrhage. There is no nystagmus. Neck full ROM Neck Narrative: There is no midline tenderness. There is no paracervical tenderness. There is no evidence of traumato the neck. General: Negative for tenderness Chest Wall palpation of chest normal Chest Narrative: Patient has a median sternotomy scar noted. This is well-healed. Resp normal respiratory effort and clear to auscultation bilaterally Cardio regular rhythm, S1 normal heart sound, S2 normal heart sound and no murmurs Rate: regular rate GI normal to inspection, nondistended, normoactive bowel sounds, non-tender, non- distended and no masses GI Narrative: There is no palpable pulsatile mass. There is no abdominal bruit. Palpation: soft Back/Spine normal to inspection and no thoracic nor lumbar tenderness Lumbar Spine / Lower Back: straight leg raise negative bilaterally Extremity normal to inspection and full ROM Extremity Narrative: There is no pain ovation of the left shoulder right clavicle. There is no pain ovation over the left or right AC joint. There is no pain ovation of the proximal humerus on the right or left. She has full active range of motion at the shoulder, elbow and wrist. Axillary, median, radial and ulnar function intact. Neuro No oriented x3 and CN's II-XII intact bilaterally Fawn Coma Scale: document GCS findings Spontaneous Obeys Commands Confused 14 Sensorium / Orientation: oriented to person and oriented to place; Negative for oriented to time Plantar Reflex: Downgoing: left and Upgoing (positive Babinski): right Psych mental status grossly normal and thought process normal Skin no rashes or lesions noted, no wounds, skin turgor normal and no jaundice MDM MDM MDM Narrative Medical decision making narrative: Since patient has head trauma on Eliquis has a Babinski sign with no history of stroke need to entertain possibility of intracranial bleed i.e. subdural hematoma, epidural hematoma, traumatic subarachnoid hemorrhage and parenchymal contusion. For this reason CT of the head was obtained. She has no tenderness of her cervical spine full active range of motion is able to perceive even pain and lighttouch in my opinion she does not need x-ray of her neck. History & Record Review Additional record(s) reviewed:: Prior inpatient record (Recent discharge, March 08, discharge summary authored by Katie GROSS was reviewed. Discharge diagnoses debility, intertrochanteric fracture of left femur, hyponatremia, hypoosmolarity and hyponatremia. Vitamin D deficiency, hypothyroidism and Parkinson's disease), Prior ED visit and Prior labs Radiography Diagnostic Testing: Clinical Impression(s) from Imaging Studies Brain CT 03/18/25 10:29 IMPRESSION: No acute intracranial abnormalities. Reading Location: [facility] C-minus of the head reveals no evidence of fracture, subdural hematoma, epiduralhematoma, subarachnoid hemorrhage or traumatic contusion. There is no fluid noted in the sinuses per awaiting formal read by radiologist, 1103. The CT report was reviewed at 1137. Plan is to discharge back to [facility]. Discharge Plan Triage Chief Complaint: Fall ED Provider: Cj Ordonez Dx/Rx/DC Orders Clinical Impression: CHI (closed head injury), Debility, Anticoagulant long-term use, Injury due to fall, [place] coma scale score 13-15, at arrival to emergency department Instructions: ED Head Injury (Adult) Prescriptions: No Action losartan 50 mg tablet 50 mg PO DAILY carbidopa-levodopa 25-100 mg tablet 1 tab PO TID acetaminophen 500 mg Tablet 1,000 mg PO Q8 Qty: 0 0RF ergocalciferol (vitamin D2) [Vitamin D2] 1,250 mcg (50,000 unit) Capsule 1,250 mcg PO Q7D Qty: 0 0RF metformin 500 mg Tablet 750 mg PO DAILYCM Qty: 1 0RF melatonin 3 mg Tablet 1.5 mg PO QHS Qty: 1 0RF levothyroxine 25 mcg Tablet 25 mcg PO DAILY@0600 Qty: 1 0RF magnesium hydroxide 400 mg/5 mL Suspension 30 ml PO X1 PRN (Reason: Constipation) Qty: 30 0RF bisacodyl 10 mg Suppository 10 mg FL X1 PRN (Reason: Constipation) Qty: 1 0RF [...] Rx Instructions: apply BID to both knees Eliquis 5 mg Tablet 2.5 mg PO BID Qty: 1 0RF Rx Instructions: DC after the last dose on 03/22/25 Primary Care Provider: Candelario Santana Chi Referrals: Candelario Santana Chi, MD [Primary Care Provider] - As Needed Activity Restrictions/Additional Instructions: Hold next 3 doses of Eliquis Print Language: Haitian Disposition Disposition: Home, Self Care What to do if you have Problems For any increased pain, shortness of breath, bleeding, nausea or vomiting, chestpain, or any unexpected problems, contact your Primary Care Provider. Call [facility] ([phone]) or report tothe closest Emergency Room. Call 911 if necessary. 03/18/25 1136 Cosigner Signature (if applicable): CC: Dr. Candelario Santana MD ~ Signed [facility]07-27-2025 Radiology Diagnostic study note [facility] Imaging Services [address] [place], [place] [address] Brain/Head without Contrast MR#: [id number] Acct: [id number] Name: SHASHI OSWALD Rep #: [id number] : 1945 F 79 From: Cody Kim MD PCP: Dr. Candelario Santana MD Status: REG E R Study:Brain/Head without Contrast Date of Exa m: 03/18/25 Exam# [id number] Ordering Dr: Wiliam Ordonez MD PROCEDURE: BRAIN/HEAD WITHOUT CONTRAST 03/18/2025 REASON FOR EXAM: BLUNT HEAD TRAUMA ON ELIQUIS TECHNIQUE: BRAIN/HEAD WITHOUT CONTRAST Coronal and Sagittal reconstruction series were provided. One or more dose reduction techniques were used (e.g., Automated exposure control, adjustment of the mA and/or kV according to patient size, use of iterative reconstruction technique. RADIATION DOSE SUMMARY: CTDlvol: 29.7 mGy DLP: 526.67 mGycm COMPARISON: None. FINDINGS: Brain: Extensive low density in the deep cerebral white matter most likely represents advanced chronic small vessel ischemic disease. No acute territorial infarction. No intracranial hemorrhage. No mass- effect or midline shift. CSF Spaces: Advanced generalized cerebral atrophy Sinuses/Mastoids: Clear. Bones: No acute bony abnormalities. CT/Brain/Head without Contrast IMPRESSION: No acute intracranial abnormalities. Reading Location: [facility] CC: Dr. Candelario Santana MD; Dr. Cj Ordonez MD ~ Tub Tender: Signed [facility]07-18-2025 Discharge summary Author Katie Bah [facility] Note Date/Time March 09, 2025 11:0 3am [facility] Medical Records Department [address] [place] [address] Discharge Summary 03/08/25 1657 MR#: [id number] Acct: [id number] Name: SHASHI OSWALD Rep #:[id number] : 1945 79 From: Katie Bah PCP: Dr. Candelario Santana MD Status:ADM I N Location: [place] [address] Providers Date of Admission: 02/21/25 Date of [...] status: with other specified complication Diabetes mellitus fci insulin use: without fci use Qualified Code(s): E11.69 - Type 2 [...] Recommend she follow up with neurology at [place] from rehab. (10) Cognitive dysfunction: Status: Chronic [...] week. Will recommend an event monitor at [place]. (16) Orthostatic hypotension: Status: Chronic Code(s): I95.1 [...] from in rehab. Plan 1. DC to [facility] on 03/09 for additional therapy - may [...] bisacodyl 10 mg rectal suppository 10 mg FL X1 PRN Constipation #1 ea 03/08/25 calcium [...] who presented to the emergency department at [facility] on 02/15/2025 complaining of left hip pain [...] to the acute inpt rehab unit at [facility] on 02/21/25 for 3 hours of therapydaily [...] put in for an event monitor at [place]. We discovered that there is a big [...] transfer. Shashi was discharged on 03/09/25 to [facility] for additional therapy. A Follow-up appointment has been made with Dr. Chacon from orthopedics and she will also need to follow up with PCP (Dr. Santana) following [facility]. We have tried to get an appt [...] 0RF bisacodyl 10 mg Suppository 10 mg FL X1 PRN (Reason: Constipation) Qty: 1 0RF [...] Recorder Preventi (Urgent) Timeframe: 3 Days Location: [facility] Ordered By: Dr. Katie Bah Referrals / Follow Up: Matt Chacon MD [Med Staff - Active Staff] - 03/22/25 3:30 pm Shon Lozada MD [Non-Staff -Ordering Privileges] - Disposition Disposition (needs filled in before D/C Order can be placed): [facility] Facility Charges/Coding Visit Charges Inpatient E&M: 46725 Disch Hosp >30min 03/09/25 1103 <Electronically signed by Katie Bah DO> Cosigner Signature (if applicable): CC: Dr. Matt Chacon MD; Dr. Katie Bah DO; Dr. Shon Lozada MD; Dr. Candelario Santana MD~ Signed [facility] Work Phone: 1(906) 997-870607-18-2025 Discharge summary [facility] Medical Records Department [address] [place] [address] Discharge Summary [id number] MR#: [id number] Acct: [id number] Name: SHASHI OSWALD Rep #:[id number] : 1945 79 From: Katie Bah DO PCP: Dr. Candelario Santana MD Status:ADM I N Location: [address] Date of Admission: 02/21/25 Date of [...] status: with other specified complication Diabetes mellitus area mechanic insulin use: without area mechanic use Qualified Code(s): E11.69 - Type 2 [...] Recommend she follow up with neurology at [place] from [place]hab. (10) Cognitive dysfunction: Status: Chronic [...] week. Will recommend an event monitor at [place]. (16) Orthostatic hypotension: Status: Chronic Code(s): I95.1 [...] from in rehab. Plan 1. DC to [facility] on 03/09 for additional therapy - may need LT placement 2. Event monitor at [place]. 3. DEXA in the near future. 4. [...] bisacodyl 10 mg rectal suppository 10 mg FL X1 PRN Constipation #1 ea 03/08/25 calcium [...] who presented to the emergency department at [facility] on 02/15/2025 complaining of left hip pain [...] to the acute inpt rehab unit at [facility] on 02/21/25 for 3 hours of therapydaily to restore function/independence at or near her level prior to the fall. Shashi has made steady progress while on rehab. Recovery is complicated by poor cognitive function. BS's were elevated at admission to rehab. She was started on GLucophage and the BS's are well controlled on GLucophage 750 mg Q AMat [place]. No BS's > 180 and no hypoglycemia. [...] put in for an event monitor at [place]. We discovered that there is a big [...] transfer. Shashi was discharged on 03/09/25 to [facility] for additional therapy. A Follow-up appointment has been made with Dr. Chacon from orthopedics and she will also need to follow up with PCP (Dr. Santana) following [facility]. We have tried to get an appt [...] 0RF bisacodyl 10 mg Suppository 10 mg FL X1 PRN (Reason: Constipation) Qty: 1 0RF [...] Recorder Preventi (Urgent) Timeframe: 3 Days Location: [facility] Ordered By: Dr. Katie Bah Referrals / Follow Up: Matt Chacon MD [Med Staff - Active Staff] - 03/22/25 3:30 pm Shon Lozada MD [Non-Staff -Ordering Privileges] - Disposition Disposition (needs filled in before D/C Order can be placed): [facility] Facility Charges/Coding Visit Charges Inpatient E&M: 20008 Disch Hosp >30min 03/09/25 1103 Cosigner Signature (if applicable): CC: Dr. Matt Chacon MD; Dr. Katie Bah DO; Dr. Shon Lozada MD; Dr. Candelario Santana MD~ Signed [facility]07-17-2025 Discharge summary Author Katie [facility] Note Date/Time March 08, 2025 4:57 pm [facility] Medical Records Department [address] [place] [address] Transfer to [facility] MR#: [id number] Acct: [id number] Name: SHASHI OSWALD Rep #:[id number] : 1945 79 From: Katie Bah DO PCP: Dr. Candelario Santana MD Status:ADM I N Certification of patient admission REQUIRED AT TIME OF ADMISSION. I CERTIFY THAT POST-HOSPITAL ECF SERVICES ARE REQUIRED TO BE GIVEN ON AN IN-PATIENT BASIS BECAUSE OF THE ABOVE NAMED PATIENT'S NEED FOR CORRECTION CARE ON A CONTINUING BASIS FOR THE CONDITION(S) FOR WHICH HE/SHE WAS RECEIVING IN-PATIENT HOSPITAL SERVICES PRIOR TO HIS/HER TRANSFER TO THE [facility]. 03/08/25 1657<Electronically signed by Katie Bah DO> [...] Recommend she follow up with neurology at [place] from [place]hab. Comment: Diagnosed by Dr. Santana [...] week. Will recommend an event monitor at [place]. (16) Orthostatic hypotension: Status: Chronic Code(s): I95.1 [...] an outpatient DEXA Plan 1. DC to [facility] on 03/09 for additional therapy - may [...] 0RF bisacodyl 10 mg Suppository 10 mg FL X1 PRN (Reason: Constipation) Qty: 1 0RF [...] Recorder Preventi (Urgent) Timeframe: 3 Days Location: [facility] Ordered By: Dr. Katie Bah Referrals / Follow Up: Matt Chacon MD [Med Staff - Active Staff] - 03/22/25 3:30 pm Shon Lozada MD [Non-Staff -Ordering Privileges] - Disposition Disposition (needs filled in before D/C Order can be placed): [facility] Facility (2) Intertrochanteric fracture of left femur [...] status: with other specified complication Diabetes mellitus fci insulin use: without fci use Qualified Code(s): E11.69 - Type 2 [...] - Age-related osteoporosis without current pathological fracture 03/08/251656 <Electronically signed by Katie Bah DO> Cosigner Signature (if applicable): CC: Dr. Matt Chacon MD; Dr. Shon Lozada MD; Dr. Candelario Santana MD ~ [facility] Work Phone: 1(699) 620-900307-17-2025 Discharge summary [facility] Medical Records Department [address] [place] [address] Transfer to [facility] MR#: [id number] Acct: [id number] Name: SHASHI OSWALD Rep #:[id number] : 1945 79 From: Katie Bah DO PCP: Dr. Candelario Santana MD Status:ADM I N Certification of patient admission REQUIRED AT TIME OF ADMISSION. I CERTIFY THAT POST-HOSPITAL [facility] SERVICES ARE REQUIRED TO BE GIVEN ON AN IN-PATIENT BASIS BECAUSE OF THE ABOVE NAMED PATIENT'S NEED FOR CORRECTION CARE ON A CONTINUING BASIS FOR THE CONDITION(S) FOR WHICH HE/SHE WAS RECEIVING IN-PATIENT HOSPITAL SERVICES PRIOR TO HIS/HER TRANSFER TO THE [facility]. 03/08/251656 Diet Diet Order/Speech Therapy: INPATIENT Hospital [...] Recommend she follow up with neurology at [place] from [place]hab. Comment: Diagnosed by Dr. Santana [...] week. Will recommend an event monitor at [place]. (16) Orthostatic hypotension: Status: Chronic Code(s): I95.1 [...] an outpatient DEXA Plan 1. DC to [facility] on 03/09 for additional therapy - may [...] 0RF bisacodyl 10 mg Suppository 10 mg FL X1 PRN (Reason: Constipation) Qty: 1 0RF [...] Recorder Preventi (Urgent) Timeframe: 3 Days Location: [facility] Ordered By: Dr. Katie Bah Referrals / Follow Up: Matt Chacon MD [Med Staff - Active Staff] - 03/22/25 3:30 pm Shon Lozada MD [Non-Staff -Ordering Privileges] - Disposition Disposition (needs filled in before D/C Order can be placed): [facility] Facility (2) Intertrochanteric fracture of left femur [...] status: with other specified complication Diabetes mellitus fci insulin use: without fci use Qualified Code(s): E11.69 - Type 2 [...] Lozada MD; Dr. Candelario Santana MD ~ [facility]07-17-2025 [facility]07-15-2025 Progress note Author Katie Bah [facility] Note Date/Time March 06, 2025 4:11 pm [facility] Medical Records Department [address] [place] [address] Progress Note 03/06/25 1150 MR#: [id number] Acct: [id number] Name: SHASHI OSWALD Rep #:[id number] : 1945 79 From: Kaite Bah PCP: Dr. Candelario Snatana MD Status:ADM I N Location: [place] [address] Subjective Subjective Afebrile VSS -mild systolic hypertension. [...] H 99 Room Air 03/06/25 06:00 03/06/25 10:03/06/25 09:22 03/06/25 10:14 03/06/25 09:22 03/06/25 09:22 Oxygen Delivery Method Room Air Weight: 136 lb 9.6 oz Body Mass Index (BMI) 25.1 Intake & Output: Intake and Output for Last 24 Hours 03/04/25 03/05/25 03/06/25 23:59 23:59 23:59 Intake Total 1870 / 1870 2120 / 2120 180 / 180 Output Total / 09 26 / Balance 1868 / 1868 2116 / 2116 180 / 180 Lab / Micro Data [...] status: with other specified complication Diabetes mellitus fci insulin use: without fci use Qualified Code(s): E11.69 - Type 2 [...] therapy 2. Plan discharge for Wednesday to fdc 3. Hold Procardia if the systolic is less than 110 4. Continue metoprolol 25 mg twice daily in light of paroxysmal atrial fibrillation while on rehab. Plan event monitor at discharge. Encouraged her to increase her fluid intake today. Charges/Coding Visit Charges Inpatient E&M: 80072 Subs Hosp L1 03/06/25 1611 <Electronically signed by Katie Bah DO> Katie Bah DO Cosigner Signature (if applicable): CC: ~ Signed [facility] Work Phone: 1(354) 308-766307-15-2025 Progress note [facility] Medical Records Department [address] [place] [address] Progress Note 03/06/25 1150 MR#: [id number] Acct: [id number] Name: SHASHI OSWALD Rep #:[id number] : 1945 79 From: Katie Bah DO PCP: Dr. Candelario Santana MD Status:ADM I N Location: [place] [address] Subjective Subjective Afebrile VSS -mild systolic hypertension. [...] 4 / 4 Balance 1868 / 1868 2116 / 2116 180 / 180 Lab / Micro Data [...] status: with other specified complication Diabetes mellitus area mechanic insulin use: without area mechanic use Qualified Code(s): E11.69 - Type 2 [...] therapy 2. Plan discharge for Wednesday to fdc 3. Hold Procardia if the systolic is less than 110 4. Continue metoprolol 25 mg twice daily in light of paroxysmal atrial fibrillation while on rehab.Plan event monitor at discharge. Encouraged her to increase her fluid intake today. Charges/Coding Visit Charges Inpatient E&M: 25356 [facility] [[email or web address] Hosp L1 03/06/25 1611 Katie Bah DO [facility] Signature (if applicable): CC: ~ Signed [facility]07-14-2025 Progress note Author Katie Bah [facility] Note Date/Time March 05, 2025 2:59 pm [facility] Medical Records Department [address] [place] [address] Progress Note 03/05/25 1138 MR#: [id number] Acct: [id number] Name: SHASHI OSWALD Rep #:[id number] : 1945 79 From: Katie Bah DO PCP: Dr. Candelario Santana MD Status:ADM I N Location: [place] [address] Subjective Subjective Shashi was seen on team [...] 1.9 and calcium is within normal limits. hSashi's only complaint is pain in the Left [...] status: with other specified complication Diabetes mellitus fci insulin use: without fci use Qualified Code(s): E11.69 - Type 2 [...] a holtor monitor or event monitor at [place]. PLAN: Plan 1. Continue therapy 2. Increase the tramadol to 3 times daily at 7 AM, 2 PM and 9 PM. Continue acetaminophen and the arthritis compounded cream to the knee. 3. Continue to monitor the blood pressure. It seems to be improving with the addition of nicardipine to her drug regimen. 4. Plan is for fdc at discharge as Ash does not feel he can adequately care for her at home at this point. The patient agrees with this andis willing to go to a fdc facility. 5. Will need a TSH and T4 in 6 weeks. 6. Recommend follow-up with neurology for cognitive impairment. Charges/Coding Visit Charges Inpatient E&M: 23720 Subs Hosp L2 03/05/25 0050 <Electronically signed by Katie Bah DO> Katie Bah DO Cosigner Signature (if applicable): CC: ~ Signed [facility] Work Phone: 1(659) 805-160607-14-2025 Progress note Author Jo Vizcarra [facility] Note Date/Time March 05, 2025 1:25 pm [facility] Medical Records Department [address] [place] [address] Progress Note - Orthopedic 03/05/25 1318 MR#: [id number] Acct: [id number] Name: SHASHI OSWALD Rep #:[id number] : 1945 79 From: Jo HADLEY PCP: Dr. Candelario Santana MD Status:ADM I N Location: [place] [address] Subjective Subjective Postop 2 weeks status post left hip long gamma nail for IT plus subtrochanteric fracture. Patient was seen today in the rehab unit. Patient was working with physical therapy upon entry. Patient continues to do well with very minimal pain. Therapy reports that she is walking approximately 20 feet at a time. Treece were removed last week. Patient says that [...] Cosigner Signature (if applicable): CC: ~ Signed [facility] Work Phone: 1(478) 231-324807-14-2025 Progress note [facility] Medical Records Department [address] [place] [address] Progress Note 03/05/25 1138 MR#: [id number] Acct: [id number] Name: SHASHI OSWALD Rep #:[id number] : 1945 79 From: Katie Bah DO PCP: Dr. Candelario Santana MD Status:ADM I N Location: [place] [address] Subjective Subjective Shashi was seen on team [...] status: with other specified complication Diabetes mellitus area mechanic insulin use: without area mechanic use Qualified Code(s): E11.69 - Type 2 [...] needa holtor monitor or event monitor at [place]. PLAN: Plan 1. Continue therapy 2. Increase the tramadol to 3 times daily at 7 AM, 2 PM and 9 PM. Continue acetaminophen and the arthritis compounded cream to the knee. 3. Continue to monitor the blood pressure. It seems to be improving with the addition of nicardipine to her drug regimen. 4. Plan is for fdc at discharge as Ash does not feel he can adequately care for her athome at this point. The patient agrees with this andis willing to go to a fdc facility. 5. Will need a TSH and T4 in 6 weeks. 6. Recommend follow-up with neurology for cognitive impairment. Charges/Coding Visit Charges Inpatient E&M: 04869 [facility] [[email or web address] Hosp L2 03/05/25 3770 Katie Bah DO [facility] Signature (if applicable): CC: ~ Signed [facility]07-14-2025 Progress note [facility] Medical Records Department [address] [place] [address] Progress Note - Orthopedic 03/05/25 1318 MR#: [id number] Acct: [id number] Name: SHASHI OSWALD Rep #:[id number] : 1945 79 From: Jo HADLEY PCP: Dr. Candelario Santana MD Status:ADM I N Location: [place] [address] Subjective Subjective Postop 2 weeks status post [...] Cosigner Signature (if applicable): CC: ~ Signed [facility]07-11-2025 Radiology Diagnostic study note [facility] Imaging Services [address] [place] [address] Femur Min 2 Views MR#: [id number] Acct: [id number] Name: SHASHI OSWALD Rep #: [id number] : 1945 From: Nicholas Hope MD PCP: Dr. Candelario Santana MD Status: ADM I N Study:Femur Min 2 Views Date of Exam: Exam# [id number] Ordering Dr: Ronal Chacon MD PROCEDURE: FEMUR MIN 2 VIEWS 03/02/2025 REASON FOR EXAM: STATUS POST LONG GAMMA NAIL TECHNIQUE: FEMUR MIN 2 VIEWS COMPARISON: None. FINDINGS: Left femoral internal fixation spanning a left proximal femoral fracture. No evidence of acute complication. RAD/Femur Min 2 Views IMPRESSION: Intact left femoral internal fixation. Reading Location: [id number] CC: Dr. Matt Chacon MD; Dr. Candelario Santana MD ~ Tub Tender: Signed [facility]07-11-2025 Radiology Diagnostic study note [facility] Imaging Services [address] [place] [address] Pelvis 1 or 2 Views MR#: [id number] Acct: [id number] Name: SHASHI OSWALD Rep #: [id number] : 1945 From: Nicholas Hope MD PCP: Dr. Candelario Santana MD Status: ADM I N Study:Pelvis 1 or 2 Views Date of Exam: 03/02/25 Exam# [id number] Ordering Dr: Ronal Chacon MD PROCEDURE: PELVIS [...] IMPRESSION: Left femoral internal fixation. Reading Location: [place] [address] CC: Dr. Matt Chacon MD; Dr. Candelario Santana MD ~ Tub Tender: Signed [facility]07-10-2025 Progress note Author Katie Bah [facility] Note Date/Time March 01, 2025 5:02 pm [facility] Medical Records Department [address] [place], [place] [address] Progress Note 03/01/25 1033 MR#: [id number] Acct: [id number] Name: SHASHI OSWALD Rep #:[id number] : 1945 79 From: Katie Bah DO PCP: Dr. Candelario Santana MD Status:ADM I N Location: [place] [address] Subjective Subjective Afebrile. The blood pressure over [...] status: with other specified complication Diabetes mellitus fci insulin use: without area mechanic use Qualified Code(s): E11.69 - Type 2 [...] extremity today. Charges/Coding Visit Charges Inpatient E&M: 93138 Subs Hosp L1 03/01/25 1143 <Electronically signed by Katie Bah DO> Katie Chener Signature (if applicable): CC: ~ Signed ADDENDUM by Dr. Katie Bah DO on 03/01/25 at 1702 Addendum Venous ultrasound of the left lower extremity shows deep veins to be patent and compressible segmentally. 03/01/25 1702 <Electronically signed by Katie partida DO> Date _ Katie Baher Signature (if applicable): Date cc: ~* Signed [facility] Work Phone: 1(785) 746-157307-10-2025 Progress note [facility] Medical Records Department [address] [place] [address] Progress Note 03/01/25 1033 MR#: [id number] Acct: [id number] Name: SHASHI OSWALD Rep #:[id number] : 1945 79 From: Katie Bah DO PCP: Dr. Candelario Santana MD Status:ADM I N Location: [place] [address] Subjective Subjective Afebrile. The blood pressure over [...] status: with other specified complication Diabetes mellitus area mechanic insulin use: without area mechanic use Qualified Code(s): E11.69 - Type 2 [...] extremity today. Charges/Coding Visit Charges Inpatient E&M: 18459 Subs Hosp 03/01/25 1143 Katie Bah DO Cosigner Signature (if applicable): CC: ~ Signed ADDENDUM by Dr. Katie Bah DO on 03/01/25 at 1702 Addendum Venous ultrasound of the left lower extremity shows deep veins to be patent and compressible segmentally. 03/01/25 1702 ti DO> Date _ Katie Bah DO Cosigner Signature (if applicable): Date cc: ~* Signed [facility]07-09-2025 Progress note Author Katie Bah [facility] Note Date/Time February 28, 2025 11:36 am [facility] Medical Records Department [address] [place] [address] Progress Note 02/28/25911 MR#: [id number] Acct: [id number] Name: SHASHI OSWALD Rep #:[id number] : 1945 79 From: Katie Bah DO PCP: Dr. Candelario Santana MD Status:ADM I N Location: [place] FI812-6 Subjective Subjective Finished 5 days of Macrobid [...] status: with other specified complication Diabetes mellitus area mechanic insulin use: without area mechanic use Qualified Code(s): E11.69 - Type 2 [...] as OP. Charges/Coding Visit Charges Inpatient E&M: 30367 Subs Hosp L1 02/28/25 1136 <Electronically signed by Katie Bah DO> Katie Bah DO Cosigner Signature (if applicable): CC: ~ Signed [facility] Work Phone: 1(153) 721-515907-09-2025 Progress note [facility] Medical Records Department [address] [place] [address] Progress Note 02/28/25 09 MR#: [id number] Acct: [id number] Name: SHASHI OSWALD Rep #:[id number] : 1945 79 From: Katie Bah PCP: Dr. Candelario Santana MD Status:ADM I N Location: [place] [address] Subjective Subjective Finished 5 days of Macrobid [...] status: with other specified complication Diabetes mellitus area mechanic insulin use: without area mechanic use Qualified Code(s): E11.69 - Type 2 [...] time I have examined her since last Ulises. Consider a holtor as OP. Charges/Coding Visit Charges Inpatient E&M: 35872 Subs Hosp L1 02/28/25 1136 Katie Bah DO Cosigner Signature (if applicable): CC: ~ Signed [facility]07-07-2025 Progress note Author Katie Bah [facility] Note Date/Time February 26, 2025 3:37p m [facility] Medical Records Department [address] [place] [address] Progress Note 02/26/25 0857 MR#: [id number] Acct: [id number] Name: SHASHI OSWALD Rep #:[id number] : 1945 79 From: Katie Bah DO PCP: Dr. Candelario Santana MD Status:ADM I N Location: [place] [address] Subjective Subjective Shashi was seen on team [...] status: with other specified complication Diabetes mellitus fci insulin use: without area mechanic use Qualified Code(s): E11.69 - Type 2 [...] will also need an event monitor at [place]. PLAN: Plan 1. Continue therapy 2. Finish [...] She will need a event monitor at [place] from rehab. She has had PAF while on rehab. 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 Also will need a carotid US (can be done as an OP) for loud R carotid bruit.....vs radiation of MM Charges/Coding Visit Charges Inpatient E&M: 22549 Subs Hosp L2 02/26/25 1532 <Electronically signed by Katie Bah DO> Katie Bah DO Cosigner Signature (if applicable): CC: ~ Signed [facility] Work Phone: 1(341) 144-840607-07-2025 Progress note [facility] Medical Records Department [address] [place] [address] Progress Note 02/26/25 0857 MR#: [id number] Acct: [id number] Name: SHASHI OSWALD Rep #:[id number] : 1945 79 From: Katie Bah DO PCP: Dr. Candelario Santana MD Status:ADM I N Location: [place] [address] Subjective Subjective Shashi was seen on team [...] status: with other specified complication Diabetes mellitus fci insulin use: without fci use Qualified Code(s): E11.69 - Type 2 [...] will also need an event monitor at [place]. PLAN: Plan 1. Continue therapy 2. Finish [...] She will need a event monitor at [place] from rehab. She has had PAF while on rehab. 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 Also will need a carotid US (can be done as an OP) for loud R carotid bruit.....vs radiation of MM Charges/Coding Visit Charges Inpatient E&M: 42660 Subs Hosp L2 02/26/25 1537 Katie Bah DO Cosigner Signature (if applicable): CC: ~ Signed [facility]07-04-2025 Progress note Author Katie Bah [facility] Note Date/Time February 23, 2025 1:26p m [facility] Medical Records Department [address] [place] [address] Progress Note 02/23/25 1253 MR#: [id number] Acct: [id number] Name: SHASHI OSWALD Rep #:[id number] : 1945 79 From: Katie Bah DO PCP: Dr. Candelario Santana MD Status:ADM I N Location: [place] [address]-1 Subjective Subjective Afebrile VSS -blood pressure since [...] Clarity Cloudy, Urine pH 6.5, Ur Specific [place] 1.010, Urine Protein 30 H, Urine Glucose [...] Diabetes mellitus, type 2: QUALIFIERS: Diabetes mellitus fci insulin use: without fci use Diabetes mellitus complication status: with other [...] Has not had a CT brain at [facility] in the past. TSH is high and [...] is 98. Charges/Coding Visit Charges Inpatient E&M: 06989 Subs Hosp L1 02/23/25 1321 <Electronically signed [...] Signature (if applicable): Date cc: ~* Signed [facility] Work Phone: 1(375) 805-471307-04-2025 History and physical note Author Katie Bah [facility] Note Date/Time February 23, 2025 12:50 pm [facility] Medical Records Department [address] [place] [address] Post Admission Physician Danial 02/23/25 1242 MR#: [id number] Acct: [id number] Name: SHASHI OSWALD Rep #:[id number] : 1945 79 From: Katie DíazSimona Olvin PCP: Dr. Candelario Santana MD Status:ADM I N Location: [place] [address] Admission Information Primary Diagnosis:: Debility secondary to [...] Language Skills and Compensatory Strategies Patient requires 15/03 Rehabilitation Nursing for: Pain Issues, Identifying and preventing risk factors, Monitoring and reporting current medical conditions, Assisting with ambulation, transfer, and all ADL's, Teaching patients about disease process and medications, Family teaching, Providing safe environment, Bowel and Bladder Issues, Skin integrity and Medication Management Patient needs Product Engineering Manager/ Case Management for: Discharge Planning, Arranging Home [...] Cosigner Signature (if applicable): CC: ~ Signed [facility] Work Phone: 1(485) 213-341807-04-2025 History and physical note Author Katie Bah [facility] Note Date/Time February 23, 2025 12:42 pm [facility] Medical Records Department [address] [place] [address] History & Physical Exam 02/22/25 0945 MR#: [id number] Acct: [id number] Name: SHASHI OSWALD Rep #:[id number] : 1945 79 From: Katie Bah DO PCP: Dr. Candelario Santana MD Status:ADM I N Location: [place] [address] HPI - General General Date of Admission: [...] who presented to the emergency department at [facility] on 02/15/2025 complaining of left hip pain [...] to the acute inpt rehab unit at [facility] on 02/21/25 for 3 hours of therapydaily [...] this institution. Has not seen a neurologist. [facility] Medical History Hypothyroidism Diabetes mellitus, type 2 [...] % (Auto) 65.0, Lymph % (Auto) 23.7, Mclennan% (Auto) 7.2, Eos % (Auto) 3.0, Baso [...] the AV. Charges/Coding Visit Charges Inpatient E&M: 91242 Init Hosp L2 02/23/25 1242 <Electronically signed by Katie Bah DO> Cosigner Signature (if applicable): CC: Dr. Matt Chacon MD; Dr. Katie Bah DO; Dr. Candelario Santana MD~ Signed [facility] Work Phone: 1(678) 635-648307-04-2025 Progress note [facility] Medical Records Department [address] [place] [address] Progress Note 02/23/25 1253 MR#: [id number] Acct: [id number] Name: SHASHI OSWALD Rep #:[id number] : 1945 79 From: Katie Bah DO PCP: Dr. Candelario Santana MD Status:ADM I N Location: [place] [address] Subjective Subjective Afebrile VSS -blood pressure since [...] Clarity Cloudy, Urine pH 6.5, Ur Specific [place] 1.010, Urine Protein 30 H, Urine Glucose [...] Diabetes mellitus, type 2: QUALIFIERS: Diabetes mellitus area mechanic insulin use: without fci use Diabetes mellitus complication status: with other [...] Has not had a CT brain at [facility] in the past. TSH is high and [...] is 98. Charges/Coding Visit Charges Inpatient E&M: 13936 Subs Hosp L1 02/23/25 1321 Katie Bah [...] Signature (if applicable): Date cc: ~* Signed [facility]07-04-2025 History and physical note [facility] Medical Records Department [address] [place] [address] Post Admission Physician Danial 02/23/25 1242 MR#: [id number] Acct: [id number] Name: SHASHI OSWALD Rep #:[id number] : 1945 79 From: Katie Bah DO PCP: Dr. Candelario Santana MD Status:ADM I N Location: [place] [address] Admission Information Primary Diagnosis:: Debility secondary to [...] Skin integrity and Medication Management Patient needs Product Engineering Manager/ Case Management for: Discharge Planning, Arranging Home [...] Cosigner Signature (if applicable): CC: ~ Signed [facility]07-04-2025 History and physical note [facility] Medical Records Department [address] [place] [address] History & Physical Exam 02/22/25 0945 MR#: [id number] Acct: [id number] Name: SHASHI OSWALD Rep #:[id number] : 1945 79 From: Katie Bah PCP: Dr. Candelario Santana MD Status:ADM I N Location: [address] - General General Date of Admission: 02/21/25 Date of Service: 02/22/25 Chief Complaint: Debility secondary to left hip fracture and patient with Parkinson's disease [facility] Narrative SHASHI OSWALD, is a 79 YO F with a past medical history of Parkinson's disease?, diabetes mellitus type 2, hypertension, hypothyroidism (status post thyroidectomy), restless leg syndrome, history of choledocholithiasis (has had an ERCP and placement of temporary biliary stents in November [address] Tran), internal hemorrhoids, iron deficiency anemia and memory problems who presented to the emergency department at [facility] on 02/15/2025 complaining of left hip pain [...] to the acute inpt rehab unit at [facility] on 02/21/25 for 3 hours of therapydaily [...] at this institution. Has not rajendra neurologist. [facility] Medical History Hypothyroidism Diabetes mellitus, type 2 [...] Neut% (Auto) 65.0, Lymph % (Auto) 23.7, Mclennan% (Auto) 7.2, Eos % (Auto) 3.0, Baso [...] Albumin 2.6 L,Globulin 3.0, Albumin/Globulin Ratio 0.9 07/03/25 06:09: POC Glucose 189 H Assessment & [...] the AV. Charges/Coding Visit Charges Inpatient E&M: 74817 Init Hosp L2 02/23/25 1242 Cosigner Signature (if applicable): CC: Dr. Matt Chacon MD; Dr. Katie Bah DO; Dr. Candelario Santana MD~ Signed [facility]07-03-2025 [facility]07-02-2025 Hospital Discharge instructionsAdditional Instructions 1. WBAT LLE 2. Eliquis 2.5 mg BID x 30 days then stop 3. Dressing changes per ortho 4. Ortho F/U in 2 weeks Date of Discharge: 02/21/25[facility] Work Phone: 1(601) 106-223107-02-2025 Consult note [facility] Medical Records Department [address] [place] [address] Anesthesia Postop Eval II 02/19/25 0958 MR#: [id number] Acct: [id number] Name: SHASHI OSWALD Rep #:[id number] : 1945 79 From: Bi Zaman MD PCP: Dr. Candelario Santana MD Status:ADM I N Y Race: C Location: [place] [address] Anesthesia Postop Eval I Sum Postop Eval Completion status Anesthesia document: Postop Eval 1 completed: Yes Anesthesia Postop Eval I Summary Anesthesia Postop Eval I Summary: Anesthesia Postop Eval I: Assessment Summary Airway patent Yes 02/16/25 12:50 CUSTOMER SOLUTIONS SPECIALIST.SKOBY Spontaneous unlabored Yes 02/16/25 12:50 CUSTOMER SOLUTIONS SPECIALIST.SKOBY respirations Mental status Awake,Calm 02/16/25 12:50 CUSTOMER SOLUTIONS SPECIALIST.SKOBY nausea No 02/16/25 12:50 CUSTOMER SOLUTIONS SPECIALIST.SKOBY Vomiting No 02/16/25 12:50 CUSTOMER SOLUTIONS SPECIALIST.SKOBY Anesthesia Postop Eval I: Fluid Summary Crystalloid volume administer 2,400 02/16/25 12:50 CUSTOMER SOLUTIONS SPECIALIST.SKOBY (ml) Colloids volume administered ( ml) Blood Product volume administered (ml) Total IV fluid infused 2,400 02/16/25 12:50 TRENT Anesthesia Postop Eval I: Summary Notes Anesthesia Complication No 02/16/25 12:50 TRENT Anesthesia Complication Comment: Post-operative progress note to receive 2 units 02/16/25 12:50 TRENT of PRBCs, awaiting from blood bank, Dr. Zaman aware of units to be received and pressor requirements during case; currently weaned off and BP stable. Anesthesia: Postop Eval II Evaluation Mental status: Awake and Calm Pain Level: 1 nausea: No Vomiting: No Complications Anesthesia Complication: No 02/19/25 0958 vanessa ALFARO> Date _ Bi Austyn ALFARO Cosigner Signature: Date CC: ~ Signed [facility]07-02-2025 Consult note [facility] Medical Records Department [address] [place] [address] Counseling Note - Pharmacy 02/21/2537 MR#: [id number] Acct: [id number] Name: SHASHI OSWALD Rep #:[id number] : 1945 79 From: Ena Viera PCP: Dr. Candelario Santana MD Status:ADM I N Y Location: [place] [address] Pharmacy [place] Med Reconciliation Pharmacy Service has performed discharge [...] tabs 02/21/25 02/21/25 0937 Date _ Ena Car Signature (if applicable): Date CC: ~ Signed [facility]07-02-2025 Discharge summary Author Gia Owusu [facility] Note Date/Time February 21, 2025 11:18 am [facility] Medical Records Department [address] [place] [address] Discharge Summary 02/21/25 0828 MR#: [id number] Acct: [id number] Name: SHASHI OSWALD Rep #:[id number] : 1945 79 From: Gia Owusu DO PCP: Dr. Candelario Santana MD Status:ADM I N Location: MS3 GL594-9 Providers Date of Admission: 02/15/25 Date of [...] female who presented to the emergency department [facility] on 02/15/2025 with a chief complaint of [...] Rehab Unit/Facility Charges/Coding Visit Charges Inpatient E&M: 57221 Disch Hosp >30min 02/21/25 1118 <Electronically signed by Gia Owusu DO> Cosigner Signature (if applicable): CC: Dr. Matt Chacon MD; Dr. Gia Owusu DO; Dr. Candelario Santana MD~ Signed [facility] Work Phone: 1(299) 884-396507-02-2025 Consult note Author Enarodney Viera [facility] Note Date/Time February 21, 2025 1:55p m [facility] Medical Records Department [address] [place] [address] Counseling Note - Pharmacy 02/21/25 0937 MR#: [id number] Acct: [id number] Name: SHASHI OSWALD Rep #:[id number] : 1945 79 From: Ena Viera PCP: Dr. Candelario Snatana MD Status:ADM I N Y Location: [place] [address] Pharmacy [place] Med Reconciliation Pharmacy Service has performed discharge [...] Signature (if applicable): Date CC: ~ Signed [facility] Work Phone: 1(267) 754-879907-02-2025 Discharge summary [facility] Medical Records Department [address] [place] [address] Discharge Summary 02/21/25827 MR#: [id number] Acct: [id number] Name: SHASHI OSWALD Rep #:[id number] : 1945 79 From: Gia Owusu DO PCP: Dr. Candelario Santana MD Status:ADM I N [place] [facility] OG210-5 Providers Date of Admission: 02/15/25 Date of [...] female who presented to the emergency department [facility] on 02/15/2025 with a chief complaint of [...] Rehab Unit/Facility Charges/Coding Visit Charges Inpatient E&M: 01268 Disch Hosp >30min 02/21/25 1118 Cosigner Signature (if applicable): CC: Dr. Matt Chacon MD; Dr. Gia Owusu DO; Dr. Candelario Santana MD~ Signed [facility]02[facility] Progress note Author Gia Owusu [facility] Note Date/Time February 20, 2025 5:16p m [facility] Medical Records Department [address] [place] [address] Progress Note - Hospitalist 02/20/25 1713 MR#: [id number] Acct: [id number] Name: SHASHI OSWALD Rep #:[id number] : 1945 79 From: Gia Owusu DO PCP: Dr. Candelario Santana MD Status:ADM I N Location: MS3 WS167-2 Reason for Visit Reason for Visit: L [...] - Has been accepted at rehab - Zfhr-wx-emou done this evening and patient has been [...] ready for discharge from a medical standpoint. Jyhz-ql-atkp done today with insurance company. She has been approved for rehab level of care at discharge. Per discussion with case management we will plan for discharge tomorrow to rehab. Charges/Coding Visit Charges Inpatient E&M: 31368 Subs Hosp L1 02/20/25 1716 <Electronically signed by Gia Owusu DO> Cosigner Signature (if applicable): CC: ~ Signed [facility] Work Phone: 1(672) 606-421307-01-2025 Progress note [facility] Medical Records Department [address] [place] [address] Progress Note - Hospitalist 02/20/25 1713 MR#: [id number] Acct: [id number] Name: SHASHI OSWALD Rep #:[id number] : 1945 79 From: Gia Owusu DO PCP: Dr. Candelraio Santana MD Status:ADM I N Location: PR3 XE630-1 Reason for Visit Reason for Visit: L [...] - Has been accepted at rehab - Oroz-cg-emeu done this evening and patient has been [...] ready for discharge from a medical standpoint. Abuh-qs-zegs done today with insurance company. She has been approved for rehab level of care at discharge. Per discussion with case management we will plan for discharge tomorrow to rehab. Charges/Coding Visit Charges Inpatient E&M: 46161 Subs Hosp L1 02/20/25 1716 Cosigner Signature (if applicable): CC: ~ Signed [facility]06-30-2025 Progress note Author Gia Owusu [facility] Note Date/Time February 19, 2025 4:12 pm [facility] Medical Records Department [address] [place] [address] Progress Note - Hospitalist 02/19/25 1607 MR#: [id number] Acct: [id number] Name: SHASHI OSWALD Rep #:[id number] : 1945 79 From: Gia Owusu DO PCP: Dr. Candelario Santana MD Status:ADM I N Location: MS3 MU679-1 Reason for Visit Reason for Visit: Left hip pain Subjective Subjective No complaints. Moving her bowels well. Has been accepted at rehab and awaitingpre-CERT. Objective Data Objective Data Vital Signs: Vital Signs Temp Pulse Resp BP Pulse Ox O2 Del Method O2 Flow Rate 98.3 F 88 17 148/50 H 100 Room Air 2 02/19/25 14:09 02/19/25 14:09 02/19/25 14:02/19/25 14:02/19/25 14:02/19/25 14:02/16/25 08:45 Oxygen Flow [...] for admission. Charges/Coding Visit Charges Inpatient E&M: 02248 Subs Hosp L1 02/19/25 1612 <Electronically signed by Gia Owusu DO> Cosigner Signature (if applicable): CC: ~ Signed [facility] Work Phone: 1(606) 556-890806-30-2025 Progress note [facility] Medical Records Department [address] [place] [address] Progress Note - Hospitalist 02/19/25 1607 MR#: [id number] Acct: [id number] Name: SHASHI OSWALD Rep #:[id number] : 1945 79 From: Gia Owusu DO PCP: Dr. Candelario Santana MD Status:ADM I N Location: MS3 GX148-4 Reason for Visit Reason for Visit: Left [...] for admission. Charges/Coding Visit Charges Inpatient E&M: 98314 Subs Hosp L1 02/19/25 1612 Cosigner Signature (if applicable): CC: ~ Signed [facility]06-30-2025 Progress note Author Matt Chacon [facility] Note Date/Time February 19, 2025 1:27 pm [facility] Medical Records Department [address] [place] [address] Progress Note - Orthopedic 02/19/25 1317 MR#: [id number] Acct: [id number] Name: SHASHI OSWALD Rep #:[id number] : 1945 79 From: Matt Chacon MD PCP: Dr. Candelario Santana MD Status:ADM I N [facility] Documented by User: LEONIE Delaney 02/19/25 13:22 [...] Cosigner Signature (if applicable): CC: ~ Signed [facility] Work Phone: 1(877) 793-326706-30-2025 Progress note [facility] Medical Records Department [address] [place] [address] Progress Note - Orthopedic 02/19/25 1317 MR#: [id number] Acct: [id number] Name: SHASHI OSWALD Rep #:[id number] : 1945 79 From: Matt Chacon MD PCP: Dr. Candelario Santana MD Status:ADM I N Location: PR3 TT051-9 Documented by User: LEONIE Delaney 02/19/25 13:22 [...] Cosigner Signature (if applicable): CC: ~ Signed [facility]06-30-2025 Consult note Author Bi Zaman [facility] Note Date/Time February 21, 2025 1:55p m [facility] Medical Records Department [address] [place] [address] Anesthesia Postop Eval II 02/19/25 0958 MR#: [id number] Acct: [id number] Name: SHASHI OSWALD Rep #:[id number] : 1945 79 From: Bi Zaman MD PCP: Dr. Candelario Santana MD Status:ADM I N Y Race: C Location: MS3 MS308 -1 Anesthesia Postop Eval I Sum Postop Eval Completion status Anesthesia document: Postop Eval 1 completed: Yes Anesthesia Postop Eval I Summary Anesthesia Postop Eval I Summary: Anesthesia Postop Eval I: Assessment Summary Airway patent Yes 02/16/25 12:50 CUSTOMER SOLUTIONS SPECIALIST.SKOBY Spontaneous unlabored Yes 02/16/25 12:50 CUSTOMER SOLUTIONS SPECIALIST.FELIPE respirations Mental status Awake,Calm 02/16/25 12:50 CUSTOMER SOLUTIONS SPECIALIST.SKOBY nausea No 02/16/25 12:50 CUSTOMER SOLUTIONS SPECIALIST.SKOBY Vomiting No 02/16/25 12:50 CUSTOMER SOLUTIONS SPECIALIST.SKOBBarb Anesthesia Postop Eval I: Fluid Summary Crystalloid volume administer 2,400 02/16/25 12:50 CUSTOMER SOLUTIONS SPECIALIST.SKOBY (ml) Colloids volume administered ( ml) Blood Product volume administered (ml) Total IV fluid infused 2,400 02/16/25 12:50 CUSTOMER SOLUTIONS SPECIALIST.OLEGOBBarb Anesthesia Postop Eval I: Summary Notes Anesthesia Complication No 02/16/25 12:50 CUSTOMER SOLUTIONS SPECIALIST.FELIPE Anesthesia Complication Comment: Post-operative progress note to receive 2 units 02/16/25 12:50 CUSTOMER SOLUTIONS SPECIALIST.FELIPE of PRBCs, awaiting from blood bank, Dr. [...] MD Cosigner Signature: Date CC: ~ Signed [facility] Work Phone: 1(623) 682-387606-29-2025 Progress note Author Gia Owusu [facility] Note Date/Time February 18, 2025 12:4 3pm [facility] Medical Records Department [address] [place] [address] Progress Note - Hospitalist 02/18/25 0719 MR#: [id number] Acct: [id number] Name: SHASHI OSWALD Rep #:[id number] : 1945 79 From: Gia Owusu DO PCP: Dr. Candelario Santana MD Status:ADM I N Location: MS3 CP316-0 Reason for Visit Reason for Visit: Left [...] % (Auto) 63.7, Lymph % (Auto) 22.6, Mclennan% (Auto) 10.4 H, Eos % (Auto) 2.4, [...] discharge to SNF versus rehab--> case management/social work instructor following - Will need pre-CERT Acute anemia [...] need pre-CERT. Charges/Coding Visit Charges Inpatient E&M: 63540 Subs Hosp L2 02/18/25 1243 <Electronically signed by Gia Owusu DO> Cosigner Signature (if applicable): CC: ~ Signed [facility] Work Phone: 1(795) 417-754206-29-2025 Progress note [facility] Medical Records Department [address] [place] [address] Progress Note - Hospitalist 02/18/25 0719 MR#: [id number] Acct: [id number] Name: SHASHI OSWALD Rep #:[id number] : 1945 79 From: Gia Owusu DO PCP: Dr. Candelario Santana MD Status:ADM I N Location: MS3 IA820-2 Reason for Visit Reason for Visit: Left [...] Neut% (Auto) 63.7, Lymph % (Auto) 22.6, Mclennan% (Auto) 10.4 H, Eos % (Auto) 2.4, [...] discharge to SNF versus rehab--> case management/social work instructor following - Will need pre-CERT Acute anemia [...] need pre-CERT. Charges/Coding Visit Charges Inpatient E&M: 25816 Subs Hosp L2 02/18/25 1243 Cosigner Signature (if applicable): CC: ~ Signed [facility]06-28-2025 Progress note Author Gia Owusu [facility] Note Date/Time February 17, 2025 4:05 pm [facility] Medical Records Department [address] [place] [address] Progress Note - Hospitalist 02/17/25 0745 MR#: [id number] Acct: [id number] Name: SHASHI OSWALD Rep #:[id number] : 1945 79 From: Gia Owusu DO PCP: Dr. Candelario Santana MD Status:ADM I N Location: PR3 EX498-7 Reason for Visit Reason for Visit: Inability [...] % (Auto) 66.6, Lymph % (Auto) 22.0, Mclennan% (Auto) 10.3 H, Eos % (Auto) 0.3, [...] 24 fluoroscopic images were obtained. Reading Location: [place] [address] Hip X-Ray 02/16/25 08:00 IMPRESSION: Intraoperative fluoroscopy was performed for fracture fixation of the proximal left femur. A total of 24 fluoroscopic images were obtained. Reading Location: [place] [address] Physical Exam Const alert, oriented x3, no [...] discharge to SNF versus rehab--> case management/social work instructor following - Will need pre-CERT - If [...] -Full code Charges/Coding Visit Charges Inpatient E&M: 33895 Subs Hosp L2 02/17/25 1604 <Electronically signed by Gia Owusu DO> Cosigner Signature (if applicable): CC: ~ Signed [facility] Work Phone: 1(253) 903-591806-28-2025 Progress note [facility] Medical Records Department [address] [place] [address] Progress Note - Hospitalist 02/17/25 0745 MR#: [id number] Acct: [id number] Name: SHASHI OSWALD Rep #:[id number] : 1945 79 From: Gia Owusu DO PCP: Dr. Candelario Santana MD Status:ADM I N Location: MS3 ZF173-7 Reason for Visit Reason for Visit: Inability [...] Neut% (Auto) 66.6, Lymph % (Auto) 22.0, Mclennan% (Auto) 10.3 H, Eos % (Auto) 0.3, [...] 24 fluoroscopic images were obtained. Reading Location: [facility]- Hip X-Ray 02/16/25 08:00 IMPRESSION: Intraoperative fluoroscopy was performed for fracture fixation of the proximal left femur. A total of 24 fluoroscopic images were obtained. Reading Location: [place] [address] Physical Exam Const alert, oriented x3, no [...] discharge to SNF versus rehab--> case management/social work instructor following - Will need pre-CERT - If [...] -Full code Charges/Coding Visit Charges Inpatient E&M: 57697 Subs Hosp L2 02/17/25 1605 Cosigner Signature (if applicable): CC: ~ Signed [facility]06-28-2025 Progress note Author Matt Chacon [facility] Note Date/Time February 17, 2025 11:4 3am [facility] Medical Records Department [facility] [place] [address] [address] Progress Note - Orthopedic 02/17/25 1137 MR#: [id number] Acct: [id number] Name: SHASHI OSWALD Rep #:[id number] : 1945 79 From: Matt Chacon MD PCP: Dr. Candelario Santana MD Status:ADM I N Location: MS3 EO217-6 Subjective Subjective Postop day 1 status post [...] % (Auto) 66.6, Lymph % (Auto) 22.0, Mclennan% (Auto) 10.3 H, Eos % (Auto) 0.3, [...] 24 fluoroscopic images were obtained. Reading Location: [facility]- Hip X-Ray 02/16/25 08:00 IMPRESSION: Intraoperative fluoroscopy was performed for fracture fixation of the proximal left femur. A total of 24 fluoroscopic images were obtained. Reading Location: [facility]--1 Physical Exam Narrative Dressing?CDI. Distal neurovascular exam [...] Cosigner Signature (if applicable): CC: ~ Signed [facility] Work Phone: 1(315) 837-657906-28-2025 Progress note [facility] Medical Records Department [address] [place] [address] Progress Note - Orthopedic 02/17/25 1137 MR#: [id number] Acct: [id number] Name: SHASHI OSWALD Rep #:[id number] : 1945 79 From: Matt Chacon MD PCP: Dr. Candelario Santana MD Status:ADM I N Location: MS3 LI821-0 Subjective Subjective Postop day 1 status post [...] Neut% (Auto) 66.6, Lymph % (Auto) 22.0, Mclennan% (Auto) 10.3 H, Eos % (Auto) 0.3, [...] 24 fluoroscopic images were obtained. Reading Location: [facility]- Hip X-Ray 02/16/25 08:00 IMPRESSION: Intraoperative fluoroscopy was performed for fracture fixation of the proximal left femur. A total of 24 fluoroscopic images were obtained. Reading Location: [facility]-1 Physical Exam Narrative Dressing?CDI. Distal neurovascular exam [...] Cosigner Signature (if applicable): CC: ~ Signed [facility]06-27-2025 Progress note Author Baldev Berry [facility] Note Date/Time February 16, 2025 3:31 pm [facility] Medical Records Department [address] [place] [address] Progress Note - Hospitalist 02/16/25 0750 MR#: [id number] Acct: [id number] Name: SHASHI OSWALD Rep #:[id number] : 1945 79 From: Baldev Berry DO PCP: Dr. Candelario Santana MD Status:ADM I N Location: PR3 TI641-8 Reason for Visit Reason for Visit: Diagnoses [...] % (Auto) 50.2, Lymph % (Auto) 38.6, Mclennan% (Auto) 8.7, Eos % (Auto) 1.8, Baso [...] Clarity Clear, Urine pH 6.5, Ur Specific [place] 1.010, Urine Protein 30 H, Urine Glucose [...] % (Auto) 60.6, Lymph % (Auto) 27.3, Mclennan% (Auto) 9.3, Eos % (Auto) 1.9, Baso [...] Comminuted impacted left intertrochanteric fracture. Reading Location: [facility] Hip/Pelvis X-Ray 02/15/25 13:40 IMPRESSION: Comminuted impacted left intertrochanteric fracture. Reading Location: [facility] Physical Exam Const alert and no apparent [...] prophylaxis: SCDs. Charges/Coding Visit Charges Inpatient E&M: 27966 Subs Hosp L2 02/16/25 1531 <Electronically signed by Baldev Berry DO> Cosigner Signature (if applicable): CC: ~ Signed [facility] Work Phone: 1(455) 262-192606-27-2025 Progress note [facility] Medical Records Department [address] [place] [address] Progress Note - Hospitalist 02/16/25 0750 MR#: [id number] Acct: [id number] Name: SHASHI OSAWLD Rep #:[id number] : 1945 79 From: Baldev Berry DO PCP: Dr. Candelario Santana MD Status:ADM I N Location: [place] [address] Reason for Visit Reason for Visit: Diagnoses [...] Neut% (Auto) 50.2, Lymph % (Auto) 38.6, Mclennan% (Auto) 8.7, Eos % (Auto) 1.8, Baso [...] Clarity Clear, Urine pH 6.5, Ur Specific [place] 1.010, Urine Protein 30 H, Urine Glucose [...] Neut% (Auto) 60.6, Lymph % (Auto) 27.3, Mclennan% (Auto) 9.3, Eos % (Auto) 1.9, Baso [...] Comminuted impacted left intertrochanteric fracture. Reading Location: [facility] Hip/Pelvis X-Ray 02/15/25 13:40 IMPRESSION: Comminuted impacted left intertrochanteric fracture. Reading Location: [facility] Physical Exam Const alert and no apparent [...] prophylaxis: SCDs. Charges/Coding Visit Charges Inpatient E&M: 46040 Subs Hosp L2 02/16/25 1531 Cosigner Signature (if applicable): CC: ~ Signed [facility]06-27-2025 Procedure note [facility] Medical Records Department [address] [place] [address] Operative Report 02/16/25 1502 MR#: [id number] Acct: [id number] Name: SHASHI OSWALD Rep #:[id number] : 1945 79 From: Matt Chacon MD PCP: Dr. Candelario Santana MD Status:ADM I N Location: PR3 VB199-8 Procedures Musculoskeletal 20xxx-29xxx: Other Procedure See Report Operative Report (Standard) Operative Information Date of Procedure: 02/16/25 Pre-Operative Diagnosis: Left femur intertrochanteric fracture with subtrochanteric extension, displaced Post-Operative Diagnosis: Same Surgery/Procedure Performed: Left femur cephalomedullary nailing with long gammanail, open reduction internal fixation cashier courtesy booth: Yes Plate Filler: Holden Delgadillo Tasks completed by certified surgical first assistant: Closing, Implanting device and Retracting Type of [...] that apply: Implanted device Implanted device details: [place] gamma 4 cephalomedullary nail Estimated Blood Loss: 150 cc Specimen collected: No Description of surgery: Operative Report Pre-operative Diagnosis: Left displaced intertrochanteric Femur Fracture with subtrochanteric extension Post-operative Diagnosis: Same Procedure(s) Performed: Left femur open reduction internal fixation, Cephalmedullary Nailing CPT 04734, modifier 22, old fracture requiring significant fracture debridement and difficult open reduction attempts Surgeon: Dr. Matt Chacon MD Orange Picker Machine Operator: None Estimated Blood Loss: 150 ml Anesthesia: [...] time transported to the operative theater by [facility]. A Time Out was held and the [...] the help of the C-arm with perfect [place] technique. This was placed inthe proximal end of the oblong hole. Final fluorscopic images were then taken and the placement of the intramedullary device and fracture was deemed appropriate. The wounds were irrigated copiously with sterile solution. Vastus lateralis and the deep fascia was closed with 0 vicryl suture in separate layers. The deep dermal layer was closed with 2-0 vicryl suture. Treece were used to close the skin. Aquacel [...] Mas MD; Dr. Candelario Santana MD; Dr. Harrison DO~ Signed [facility]06-27-2025 Consult note Author Sheridan cMknight [facility] Note Date/Time February 16, 2025 12:[address] [facility] Medical Records Department [address] [place] [address] Anesthesia Postop Eval I 02/16/25 1248 MR#: [id number] Acct: [id number] Name: SHASHI OSWALD Rep #:[id number] : 1945 79 From: Sheirdan simmons CUSTOMER SOLUTIONS SPECIALIST PCP: Dr. Candelario Santana MD Status:ADM I N Y Race: C Location: [facility]308 -1 Anesthesia: Postop Eval I Current Vital [...] Yes 02/16/25 1250 <Electronically signed by Sheridan Kobpaulette jensen CRNA> Date _ Sheridan Valeratroy CUSTOMER SOLUTIONS SPECIALIST Cosigner Signature: Date CC: ~ Signed [facility] Work Phone: 1(607) 169-181006-27-2025 Radiology Diagnostic study note [facility] Imaging Services [address] [place] [address] Hip Min 2 Views (Portable) MR#: [id number] Acct: [id number] Name: SHASHI OSWALD Rep #: [id number] : 1945 F 79 From: Hector Talley MD PCP: Dr. Candelario Santana MD Status: ADM I N Study:Hip Min 2 Views (Portable) Date of Exam : 02/16/25 Exam# [id number] Ordering Dr: Ronal Chacon MD PROCEDURE: HIP [...] 24 fluoroscopic images were obtained. Reading Location: [place] [address] CC: Dr. Matt Chacon MD; Dr. Candelario Santana MD ~ Tub Tender: Signed [facility]06-27-2025 Radiology Diagnostic study note [facility] Imaging Services [address] [place] [address] O.R. Fluoro for C-Arm MR#: [id number] Acct: [id number] Name: SHASHI OSWALD Rep #: [id number] : 1945 F 79 From: Hector Talley MD PCP: Dr. Candelario Santana MD Status: ADM I N Study:O.R. Fluoro for C-Arm Date of Exam: 02/16/25 Exam# [id number] Ordering Dr: Ronal Chacon MD PROCEDURE: HIP [...] 24 fluoroscopic images were obtained. Reading Location: [place] [address] CC: Dr. Matt Chacon MD; Dr. Candelario Santana MD ~ Tub Tender: Signed [facility]06-27-2025 Consult note [facility] Medical Records Department [address] [place] [address] Anesthesia Postop Eval I 02/16/25 1248 MR#: [id number] Acct: [id number] Name: SHASHI OSWALD Rep #:[id number] : 1945 79 From: Sheridan simmons CRNA PCP: Dr. Candelario Santana MD Status:ADM I N Y Race: C Location: [facility]308 1 Anesthesia: Postop Eval I Current Vital Signs [...] Postop Eval 1 completed: Yes 02/16/25 1250 camila CUSTOMER SOLUTIONS SPECIALIST> Date _ Sheridan Mcknight CUSTOMER SOLUTIONS SPECIALIST Cosigner Signature: Date CC: ~ Signed [facility]06-27-2025 Consult note Author [facility] Note Date/Time February 16, 2025 9:23 am [facility] Medical Records Department [address] [place] [address] Consultation - Orthopedics 02/16/25912 MR#: [id number] Acct: [id number] Name: SHASHI OSWALD Rep #:[id number] : 1945 79 From: Matt Chacon MD PCP: Dr. Candelario Santana MD Status:ADM I N [place] [facility] QQ717-3 HPI Consult Data Date of Consult: 02/16/25 [...] thinners. She is anemic with hemoglobin 8.7. [facility] Medical History Hyperthyroidism Rheumatoid arthritis Kidney stones [...] % (Auto) 50.2, Lymph % (Auto) 38.6, Mclennan% (Auto) 8.7, Eos % (Auto) 1.8, Baso [...] Clarity Clear, Urine pH 6.5, Ur Specific [place] 1.010, Urine Protein 30 H, Urine Glucose [...] % (Auto) 60.6, Lymph % (Auto) 27.3, Mclennan% (Auto) 9.3, Eos % (Auto) 1.9, Baso [...] Comminuted impacted left intertrochanteric fracture. Reading Location: [facility] Hip/Pelvis X-Ray 02/15/25 13:40 IMPRESSION: Comminuted impacted left intertrochanteric fracture. Reading Location: [facility] Assessment & Plan Assessment/Plan (1) Intertrochanteric fracture [...] was signed. Charges/Coding Visit Charges Inpatient E&M: 51305 Init Hosp L3 02/16/25 0918 <Electronically signed by Matt Chacon MD> Cosigner Signature (if applicable): CC: Dr. Baldev Berry DO; Dr. Candelario Santana MD; Dr. Abdirashid Cano DO~ Signed ADDENDUM by Dr. Matt Chacon MD on 02/16/25 at 0923 Addendum Tried to reach both Ash and Roman sai of the patient to update about proceeding with surgery and asked if they have any questions. Both phone numbers were not reachable. Patient has consented to the surgery and wishes to proceed. 02/16/25922<Electronically signed by Matt Chacon MD> Cosigner Signature (if applicable): cc: Dr. Baldev Berry DO; Dr. Candelario Santana MD; Dr. Abdirashid Cano DO ~* Signed [facility] Work Phone: 1(620) 167-133406-27-2025 Consult note Author Bi [facility] Note Date/Time February 16, 2025 8:[address] [facility] Medical Records Department [address] [place] [address] Pre-Anesthesia Evaluation 02/16/25 0836 MR#: [id number] Acct: [id number] Name: SHASHI OSWALD Rep #:[id number] : 1945 79 From: Bi Zaman MD PCP: Dr. Candelario Santana MD Status:ADM I N Y Race: C [place] [facility] MS308 -1 ASA Classification* ASA Classification ASA [...] Gamma nail. Anesthesia History Anesthesia History - pricing manager: Anesthesia History - pricing manager Hx Hospitalization Yes: 02/202211/20/22 12:16 Any Problems [...] Yes NPO since: 00:00 PONV PONV - pricing manager: PONV - pricing manager Female HX of Motion Sickness HX of N/V After Surgery Non-Smoker Duration of Surgery greater than 60 minutes Number of Risk Factors PONV Score Height & Weight Height & Weight: Anesthesia: Height & Weight Height 5 ft 1 in 02/15/25 16:04 Weight: 57.289 kg 02/15/25 16:04 Body Mass Index (BMI) 23.8 02/15/25 16:04 Respiratory Assessment Respiratory Assessment - pricing manager: Respiratory Tract Infection Hx - pricing manager Hx Respiratory Tract Infection No 02/16/25 00:28 STOP Sleep Apnea STOP Sleep Apnea - pricing manager: STOP Sleep Apnea - pricing manager Hx Hypertension Yes: CONTROLLED WITH MED 02/15/25 [...] Tobacco Use History Tobacco Use History - pricing manager: Tobacco Use History - pricing manager Tobacco Use Smoking Status Never smoker 02/15/25 16:04 Hx Tobacco Use No 02/15/25 16:04 Years Smoking Packs Smoked per Day Smoking Cessation Date was within the last 15 years Hx Smoking Cessation Date Hx Smoking Cessation Counseling Hematologic Medial History Hematologic Hx - pricing manager: Hematologic Medical Hx - director prospect Hx of Blood Transfusion No 02/15/25 16:04 Hx of Transfusion in last 3 No 02/15/25 16:04 Months Date of Last Transfusion (if within last 3 months) Ever experience any problems No 02/15/25 16:04 with transfusion(s)? Specify any problems Hx of Preganancy in last 3 N/A 02/15/25 16:04 Months Nurse Filling Out Transfusion FSTEINER 02/15/25 16:04 & Questions: Date: 02/15/25 02/15/25 16:04 Time: 16:06 02/15/25 16:04 Patient unable to answer at this time (ie. confused, unrespo /Reproduction History /Reproductive History - pricing manager: /Reproductive Hx- pricing manager Hx Now Gestational Age (in weeks): EDC: [...] mls @ 15 mls/hr 02/15/25 16:08 IV .[id number] PRN Saline Flush Sodium Chloride 250 mls @ 15 mls/hr 02/15/25 16:08 IV .[id number] PRN Additional IVPB Infusion Lactated Ringer's 1,000 [...] 120 Ml Liquid PO Not Given 4X/DAY [facility] Ondansetron HCl 4 mg 02/15/25 16:01 Ondansetron [...] mg tablet 50 mg PO DAILY 02/15/25 0602/14 History Allergy/AdvReac Type Severity Reaction Status Date [...] MD Cosigner Signature: Date CC: ~ Signed [facility] Work Phone: 1(206) 298-518506-27-2025 Consult note [facility] Medical Records Department [address] [place] [address] Consultation - Orthopedics 02/16/25912 MR#: [id number] Acct: [id number] Name: SHASHI OSWALD Rep #:[id number] : 1945 79 From: Matt Chacon MD PCP: Dr. Candelario Santana MD Status:ADM I N Location: MS3 TG745-4 HPI Consult Data Date of Consult: 02/16/25 [...] for a week. She [facility] but since the pain worsened she came to the hospital yesterday. Prior to thefall she wasable to ambulate without any ambulatory aid. She was mainly housebound elevatedbut did go some grocery runs. Denied any significant balance issues or limping prior to the fall. She is a known diabetic. Denies any blood thinners. She is anemic with hemoglobin 8.7. [facility] Medical History Hyperthyroidism Rheumatoid arthritis Kidney stones [...] Neut% (Auto) 50.2, Lymph % (Auto) 38.6, Mclennan% (Auto) 8.7, Eos % (Auto) 1.8, Baso [...] Clarity Clear, Urine pH 6.5, Ur Specific [place] 1.010, Urine Protein 30 H, Urine Glucose [...] Neut% (Auto) 60.6, Lymph % (Auto) 27.3, Mclennan% (Auto) 9.3, Eos % (Auto) 1.9, Baso [...] Comminuted impacted left intertrochanteric fracture. Reading Location: [facility] Hip/Pelvis X-Ray 02/15/25 13:40 IMPRESSION: Comminuted impacted left intertrochanteric fracture. Reading Location: [facility] Assessment & Plan Assessment/Plan (1) Intertrochanteric fracture [...] was signed. Charges/Coding Visit Charges Inpatient E&M: 97487 Init Hosp L3 02/16/25 0918 Cosigner Signature (if applicable): CC: Dr. Baldev [...] to the surgery and wishes to proceed. 02/16/25 0923 Cosigner Signature (if applicable): cc: Dr. Baldev Berry DO; Dr. Candelario Santana MD; Dr. Abdirashid Cano DO ~* Signed [facility]06-27-2025 Consult note [facility] Medical Records Department [address] [place] [address] Pre-Anesthesia Evaluation 02/16/25 0836 MR#: [id number] Acct: [id number] Name: SHASHI OSWALD Rep #:[id number] : 1945 79 From: Bi Zaman MD PCP: Dr. Candelario Santana MD Status:ADM I N Y Race: C Location: PR3 MS308 -1 ASA Classification* ASA Classification ASA [...] Gamma nail. Anesthesia History Anesthesia History - pricing manager: Anesthesia History - pricing manager Hx Hospitalization Yes: 02/202211/20/22 12:16 Any Problems [...] Yes NPO since: 00:00 PONV PONV - pricing manager: PONV - pricing manager Female HX of Motion Sickness HX of N/V After Surgery Non-Smoker Duration of Surgery greater than 60 minutes Number of Risk Factors PONV Score Height & Weight Height & Weight: Anesthesia: Height & Weight Height 5 ft 1 in 02/15/25 16:04 Weight: 57.289 kg 02/15/25 16:04 Body Mass Index (BMI) 23.8 02/15/25 16:04 Respiratory Assessment Respiratory Assessment - pricing manager: Respiratory Tract Infection Hx - pricing manager Hx Respiratory Tract Infection No 02/16/25 00:28 STOP Sleep Apnea STOP Sleep Apnea - pricing manager: STOP Sleep Apnea - pricing manager Hx Hypertension Yes: CONTROLLED WITH MED 02/15/25 [...] Tobacco Use History Tobacco Use History - pricing manager: Tobacco Use History - pricing manager Tobacco Use Smoking Status Never smoker 02/15/25 16:04 Hx Tobacco Use No 02/15/25 16:04 Years Smoking Packs Smoked per Day Smoking Cessation Date was within the last 15 years Hx Smoking Cessation Date Hx Smoking Cessation Counseling Hematologic Medial History Hematologic Hx - pricing manager: Hematologic Medical Hx - director prospect Hx of Blood Transfusion No 02/15/25 16:04 Hx of Transfusion in last 3 No 02/15/25 16:04 Months Date of Last Transfusion (if within last 3 months) Ever experience any problems No 02/15/25 16:04 with transfusion(s)? Specify any problems Hx of Preganancy in last 3 N/A 02/15/25 16:04 Months Nurse Filling Out Transfusion FSTEINER 02/15/25 16:04 & Questions: Date: 02/15/25 02/15/25 16:04 Time: 16:06 02/15/25 16:04 Patient unable to answer at this time (ie. confused, unrespo /Reproduction History /Reproductive History - pricing manager: /Reproductive Hx- pricing manager Hx Now Gestational Age (in weeks): EDC: [...] mls @ 15 mls/hr 02/15/25 16:08 IV .[id number] PRN Saline Flush Sodium Chloride 250 mls @ 15 mls/hr 02/15/25 16:08 IV .[id number] PRN Additional IVPB Infusion Lactated Ringer's 1,000 [...] MD Cosigner Signature: Date CC: ~ Signed [facility]06-26-2025 History and physical note Author Lakeshia Mas [facility] Note Date/Time February 15, 2025 3:05 pm [facility] Medical Records Department [address] [place] [address] H&P Exam - Hospitalist 02/15/25 1456 MR#: [id number] Acct: [id number] Name: SHASHI OSWALD Rep #:[id number] : 1945 79 From: Lakeshia Mas MD PCP: Dr. Candelario Santana MD Status:REG E R Location: ED HPI - General General Date of Admission: 02/15/25 Date of Service: 02/15/25 Chief Complaint: Left hip fracture HPI Narrative SHASHI OSWALD, is a 79-year-old female history of diabetes, hypertension, hypothyroidism presented to [facility] ED 02/15/2025 with inability to walk. [...] get up she called EMS and presented [facility]. On arrival in the ED patient [...] has no other new or acute complaints [facility] Medical History Wears glasses Rash Thyroid [...] % (Auto) 50.2, Lymph % (Auto) 38.6, [place]clennan% (Auto) 8.7, Eos % (Auto) 1.8, Baso [...] Clarity Clear, Urine pH 6.5, Ur Specific [place] 1.010, Urine Protein 30 H, Urine Glucose (UA) Normal, Urine Ketones 15 H, Urine Occult Blood 10 H, Urine Nitrite Negative, Urine Bilirubin Negative, Urine Urobilinogen 8 H, Ur Leukocyte Esterase Negative Imaging Radiology Impression Femur X-Ray 02/15/25 13:40 IMPRESSION: Comminuted impacted left intertrochanteric fracture. Reading Location: [facility] Hip/Pelvis X-Ray 02/15/25 13:40 IMPRESSION: Comminuted impacted left intertrochanteric fracture. Reading Location: [facility] Assessment & Plan Assessment/Plan (1) Hip fracture: [...] Mas MD Charges/Coding Visit Charges Inpatient E&M: 29904 Init Hosp L2 02/15/25 1505 <Electronically signed by Lakeshia Mas MD> Cosigner Signature (if applicable): CC: Dr. Lakeshia Mas MD; Dr. Candelario Santana MD~ Signed [facility] Work Phone: 1(278) 396-300106-26-2025 Evaluation note* Diagnosis Onset Date Resolution Status Admit Date Anemia acute February 15 2:56pm Fall acute February 15 2:56pm Hip fracture acute February 15, 2 025 2:56pm Intertrochanteric fracture o f left femur acute February 15, 2025 2:56pm Occult blood in stools acute Ju ne 2024 2:56pm Status post hip surgery acute J une 2024 2:56pm Vitamin D deficiency acute February 15, 2025 2:56pm Constipation chronic February 15, 2 025 2:56pm [facility] Work Phone: 1(494) 404-369806-26-2025 Evaluation note* Diagnosis Onset Date Resolution Status Admit Date Occult blood in stools acute [facility] 2024 2:56pm Anemia chronic February 15 2:56pm Vitamin D deficiency chronic February 15, 2025 2:56pm Constipation resolved February 15, 2 025 2:56pm Hip fracture resolved February 15 2 025 2:56pm Intertrochanteric fracture o f left femur resolved February 15, 2025 2:56pm Fall inactive February 15 2:56pm Status post hip surgery deleted [facility] 2024 2:56pm Debility acute February 21, 2025 2:16pm H/O thyroidectomy acute February 2:16pm History of hemorrhoids acute [facility] 2024 2:16pm Hyponatremia acute February 21 2:16pm Occult blood in stools acute [facility] 2024 2:16pm Paroxysmal atrial fibrillation acute February [...] February 21, 2025 2:16pm Orthostatic hypotension chronic J [email or web address] 2:16pm Parkinson's disease chronic February 21, 2025 [...] (ORIF) procedure inactive February 21, 2025 2:16pm [facility] Work Phone: 1(466) 287-115906-26-2025 Evaluation note* Diagnosis Onset Date Resolution Status Admit Date Occult blood in stools acute [facility] 2024 2:56pm Anemia chronic February 15 2:56pm Vitamin D deficiency chronic February 15, 2025 2:56pm Constipation resolved February 15 025 2:56pm Hip fracture resolved February 15 2:56pm Intertrochanteric fracture o f left femur resolved February 15, 2025 2:56pm Fall inactive February 15 2:56pm Status post hip surgery deleted [facility] 2024 2:56pm Debility acute February 21, 2025 2:16pm Hyponatremia acute February 21 2:16pm Occult blood in stools acute 2024 2:16pm Paroxysmal atrial fibrillation acute February 21, 2025 2:16pm Anemia chronic February 21, 2025 2:16pm Fecal incontinence chronic February 212024 2:16pm Right carotid bruit chronic February 21, 2025 2:16pm Urinary bladder incontinence chronic February 21, 2025 2:16pm Vitamin D deficiency chronic February 21, 2025 2:16pm Osteoporosis suspected February 21 2:16pm Constipation resolved February 21 2:16pm Intertrochanteric fracture o f left femur resolved February 21, 2025 2:16pm Orthostatic hypotension resolved J [email or web address] 2:16pm Cognitive dysfunction inactive Feb 2:16pm Diabetes mellitus, type 2 inactive February 21, 2025 2:16pm H/O thyroidectomy inactive February 2:16pm History of hemorrhoids inactive [facility] 2024 2:16pm History of open reduction an d internal fixation (ORIF) procedure inactive February 21, 2025 2:16pm Hyperlipemia inactive February 21 2:16pm Hypothyroidism inactive February 21, 2025 2:16pm Murmur, cardiac inactive February 21, 2025 2:16pm Parkinson's disease inactive February 21, 2025 2:16pm Status post hip surgery inactive J kim 2024 2:16pm [facility] Work Phone: 1(258) 817-823406-26-2025 Evaluation note* Diagnosis Onset Date Resolution Status Admit Date Occult blood in stools acute ne 2024 2:56pm Anemia chronic February 15 2:56pm Vitamin D deficiency chronic February 15, 2025 2:56pm Constipation resolved February 15, 2 025 2:56pm Hip fracture resolved February 15, 2 025 2:56pm Intertrochanteric fracture o f left femur resolved February 15, 2025 2:56pm Fall inactive February 15 2:56pm Status post hip surgery deleted J [email or web address] 2024 2:56pm Debility acute February 21, 2025 2:16pm Hyponatremia acute February 21 2:16pm Occult blood in stools acute [facility] 2024 2:16pm Paroxysmal atrial fibrillation acute February 21, 2025 2:16pm Anemia chronic February 21, 2025 2:16pm Fecal incontinence chronic February 212024 2:16pm Right carotid bruit chronic February 21, 2025 2:16pm Urinary bladder incontinence chronic February 21, 2025 2:16pm Vitamin D deficiency chronic February 21, 2025 2:16pm Osteoporosis suspected February 21 2:16pm Constipation resolved February 21 2:16pm Intertrochanteric fracture o f left femur resolved February 21, 2025 2 :16pm Orthostatic hypotension resolved Steven alvarez 2024 2:16pm Cognitive dysfunction inactive Feb 2:16pm Diabetes mellitus, type 2 inactive February 21, 2025 2:16pm H/O thyroidectomy inactive February 2:16pm History of hemorrhoids inactive [facility] 2024 2:16pm History of open reduction an d internal fixation (ORIF) procedure inactive February 21, 2025 2 :16pm Hyperlipemia inactive February 21 2:16pm Hypothyroidism inactive February 21, 2025 2:16pm Murmur, cardiac inactive February 21, 2025 2:16pm Parkinson's disease inactive February 21, 2025 2:16pm Status post hip surgery inactive Steven alvarez 2024 2:16pm Intertrochanteric fracture o f left femur resolved March 29, 2025 1:54pm History of open reduction an d internal fixation (ORIF) procedure inactive March 29, 2025 1:54pm [facility] [employer] [place] [place] Work Phone: 1(640) 951-289506-26-2025 Discharge summary Author Abdirashid Cano [facility] Note Date/Time February 15, 2025 2:40 pm [facility] Medical Records Department [address] [place] [address] Emergency Department Summary 02/15/25 MR#: [id number] Acct: [id number] Name: SHASHI OSWALD Rep #:[id number] : 1945 79 From: Abdirashid Cano DO [...] up she came in by EMS today. [facility] Medical History Wears glasses [...] % (Auto) 50.2 Lymph % (Auto) 38.6 Mclennan % (Auto) 8.7 Eos % (Auto) 1.8 Baso % (Auto) 0.4 Absolute Neuts (auto) 4.6 Absolute Lymphs (auto) 3.52 Nucleated RBC % 0 Urine Color Straw Urine Clarity Clear Urine pH 6.5 Ur Specific [place] 1.010 Urine Protein 30 H Urine Glucose (UA) Normal Urine Ketones 15 H Urine Occult Blood 10 H Urine Nitrite Negative Urine Bilirubin Negative Urine Urobilinogen 8 H Ur Leukocyte Esterase Negative Radiography Diagnostic Testing: Clinical Impression(s) from Imaging Studies Femur X-Ray 02/15/25 13:40 IMPRESSION: Comminuted impacted left intertrochanteric fracture. Reading Location: [facility] Hip/Pelvis X-Ray 02/15/25 13:40 IMPRESSION: Comminuted impacted left intertrochanteric fracture. Reading Location: [facility] Discharge Plan Triage Chief Complaint: Lower Extremity Injury ED Provider: Abdirashid Cano Dx/Rx/DC Orders Clinical Impression: Fall, Hip fracture Prescriptions: No Action losartan 50 mg tablet 50 mg PO DAILY carbidopa-levodopa 25-100 mg tablet 1 tab PO TID Primary Care Provider: Candelario Santana Chi Referrals: Candelario Santana Chi, MD [Primary Care Provider] - Print Language: Haitian Disposition Disposition: Acute Care Hospital [facility] What to do if you have Problems For any increased pain, shortness of breath, bleeding, nausea or vomiting, chestpain, or any unexpected problems, contact your Primary Care Provider. Call [facility] ([phone]) or report to the closest Emergency Room. Call 911 if necessary. 02/15/25 1438 <Electronically signed by Abdirashid Cano DO> Cosigner Signature (if applicable): CC: Dr. Candelario Santana MD ~ Signed [facility] Work Phone: 1(879) 896-418006-26-2025 History and physical note [facility] Medical Records Department [address] [place] [address] H&P Exam - Hospitalist 02/15/25 1456 MR#: [id number] Acct: [id number] Name: SHASHI OSWALD Rep #:[id number] : 1945 79 From: Lakeshia Mas MD PCP: Dr. Candelario Santana MD Status:REG E R Location: ED HPI - General General Date of Admission: 02/15/25 Date of Service: 02/15/25 Chief Complaint: Left hip fracture HPI Narrative SHASHI OSWALD, is a 79-year-old female history of diabetes, hypertension, hypothyroidism presented to [facility] ED 02/15/2025 with inability to walk. She fell Wednesday of last week and hadher sons help her get to the couch but she has not been able to get up off the couch since then andnotes that friends and family been bringing her food and water/drinks but due tothe persistent painand still not able to get up she called EMS [facility]. On arrival in the ED patient [...] who recommended medicine admission with Ortho consult. Ho spitalist contacted for mission. Patient evaluated at bedside with family member present, they do report the fall roughly week ago with pain, her son has been changing her she has been unable to walkor get to the bathroom. Aside from the pain patient has no other new or acute complaints [facility] Medical History Wears glasses Rash Thyroid [...] Neut% (Auto) 50.2, Lymph % (Auto) 38.6, Mclennan% (Auto) 8.7, Eos % (Auto) 1.8, Baso [...] Clarity Clear, Urine pH 6.5, Ur Specific [place] 1.010, Urine Protein 30 H, Urine Glucose (UA) Normal, Urine Ketones 15 H, Urine Occult Blood 10 H, Urine Nitrite Negative, Urine Bilirubin Negative, Urine Urobilinogen 8 H, Ur Leukocyte Esterase Negative Imaging Radiology Impression Femur X-Ray 02/15/25 13:40 IMPRESSION: Comminuted impacted left intertrochanteric fracture. Reading Location: [facility] Hip/Pelvis X-Ray 02/15/25 13:40 IMPRESSION: Comminuted impacted left intertrochanteric fracture. Reading Location: [facility] Assessment & Plan Assessment/Plan (1) Hip fracture: [...] to be on any oral hypoglycemics anymore, [id number], glucose checks sliding scale insulin #Hypothyroidism -With [...] Mas MD Charges/Coding Visit Charges Inpatient E&M: 04647 Init Hosp L2 02/15/25 1505 Cosigner Signature (if applicable): CC: Dr. Lakeshia Mas MD; Dr. Candelario Santana MD~ Signed [facility]06-26-2025 Discharge summary [facility] Medical Records Department [address] [place] [address] Emergency Department Summary 02/15/25 MR#: [id number] Acct: [id number] Name: SHASHI OSWALD Rep #:[id number] : 1945 79 From: Abdirashid Cano DO [...] up she came in by EMS today. [facility] Medical History Wears glasses [...] % (Auto) 50.2 Lymph % (Auto) 38.6 Mclennan % (Auto) 8.7 Eos % (Auto) 1.8 Baso % (Auto) 0.4 Absolute Neuts (auto) 4.6 Absolute Lymphs (auto) 3.52 Nucleated RBC % 0 Urine Color Straw Urine Clarity Clear Urine pH 6.5 Ur Specific [place] 1.010 Urine Protein 30 H Urine Glucose (UA) Normal Urine Ketones 15 H Urine Occult Blood 10 H Urine Nitrite Negative Urine Bilirubin Negative Urine Urobilinogen 8 H Ur Leukocyte Esterase Negative Radiography Diagnostic Testing: Clinical Impression(s) from Imaging Studies Femur X-Ray 02/15/25 13:40 IMPRESSION: Comminuted impacted left intertrochanteric fracture. Reading Location: [facility] Hip/Pelvis X-Ray 02/15/25 13:40 IMPRESSION: Comminuted impacted left intertrochanteric fracture. Reading Location: [facility] Discharge Plan Triage Chief Complaint: Lower Extremity Injury ED Provider: Abdirashid Cano Dx/Rx/DC Orders Clinical Impression: Fall, Hip fracture Prescriptions: No Action losartan 50 mg tablet 50 mg PO DAILY carbidopa-levodopa 25-100 mg tablet 1 tab PO TID Primary Care Provider: Candelario Santana Chi Referrals: Candelario Santana Chi, MD [Primary Care Provider] - Print Language: Haitian Disposition Disposition: Acute Care Hospital [facility] What to do if you have Problems For any increased pain, shortness of breath, bleeding, nausea or vomiting, chestpain, or any unexpected problems, contact your Primary Care Provider. Call [facility] ([phone]) or report tothe closest Emergency Room. Call 911 if necessary. 02/15/25 1438 Cosigner Signature (if applicable): CC: Dr. Candelario Santana MD ~ Signed [facility]06-26-2025 Radiology Diagnostic study note [facility] Imaging Services [address] [place] [address] [id number] Femur Min 2 Views MR#: [id number] Acct: [id number] Name: SHASHI OSWALD Rep #: [id number] : 1945 F 79 From: Joya Vazquez MD PCP: Dr. Candelario Santana MD Status: PRE E R Study:Femur Min 2 Views Date of Exam: Exam# [id number] Ordering Dr: Nathan Cano DO EXAM: XR Left Femur, 2 Views CLINICAL INDICATION: FALL TECHNIQUE: Frontal and lateral views of the left femur. COMPARISON: No relevant prior studies available. FINDINGS: BONES/JOINTS: Comminuted impacted left intertrochanteric fracture. No dislocation. SOFT TISSUES: Soft tissue swelling. RAD/Femur Min 2 Views IMPRESSION: Comminuted impacted left intertrochanteric fracture. Reading Location: [facility] CC: Dr. Candelario Santana MD; Dr. Abdirashid Cano DO ~ Tub Tender: Signed [facility]06-26-2025 Radiology Diagnostic study note [facility] Imaging Services [address] [place] [address] HIP, UNI W/ Pelvis 2-3 Views MR#: [id number] Acct: [id number] Name: SHASHI OSWALD Rep #: [id number] : 1945 F 79 From: Joya Vazquez MD PCP: Dr. Candelario Santana MD Status: PRE E R Study:HIP, UNI W/ Pelvis 2-3 Views Date of Ex am: 02/15/25 Exam# [id number] Ordering Dr: Nathan Cano DO EXAM: XR [...] Comminuted impacted left intertrochanteric fracture. Reading Location: [facility] CC: Dr. Candelario Santana MD; Dr. Abdirashid Cano DO ~ Tub Tender: Signed [facility]06-26-2025 Discharge summary Author Abdirashid Cano [facility] Note Date/Time February 15, 2025 2:40 pm [facility] Medical Records Department [address] [place] [address] Emergency Department Summary 02/15/25 MR#: [id number] Acct: [id number] Name: SHASHI OSWALD Rep #:[id number] : 1945 79 From: Abdirashid Cano DO [...] up she came in by EMS today. [facility] Medical History Wears glasses [...] % (Auto) 50.2 Lymph % (Auto) 38.6 Mclennan % (Auto) 8.7 Eos % (Auto) 1.8 Baso % (Auto) 0.4 Absolute Neuts (auto) 4.6 Absolute Lymphs (auto) 3.52 Nucleated RBC % 0 Urine Color Straw Urine Clarity Clear Urine pH 6.5 Ur Specific [place] 1.010 Urine Protein 30 H Urine Glucose (UA) Normal Urine Ketones 15 H Urine Occult Blood 10 H Urine Nitrite Negative Urine Bilirubin Negative Urine Urobilinogen 8 H Ur Leukocyte Esterase Negative Radiography Diagnostic Testing: Clinical Impression(s) from Imaging Studies Femur X-Ray 02/15/25 13:40 IMPRESSION: Comminuted impacted left intertrochanteric fracture. Reading Location: [facility] Hip/Pelvis X-Ray 02/15/25 13:40 IMPRESSION: Comminuted impacted left intertrochanteric fracture. Reading Location: [facility] Discharge Plan Triage Chief Complaint: Lower Extremity Injury ED Provider: Abdirashid Cano Dx/Rx/DC Orders Clinical Impression: Fall, Hip fracture Prescriptions: No Action losartan 50 mg tablet 50 mg PO DAILY carbidopa-levodopa 25-100 mg tablet 1 tab PO TID Primary Care Provider: Candelario Santana Chi Referrals: Candelario Santana Chi, MD [Primary Care Provider] - Print Language: Haitian Disposition Disposition: Acute Care Hospital [facility] What to do if you have Problems For any increased pain, shortness of breath, bleeding, nausea or vomiting, chestpain, or any unexpected problems, contact your Primary Care Provider. Call [facility] ([phone]) or report to the closest Emergency Room. Call 911 if necessary. 02/15/25 1438 <Electronically signed by Abdirashid Cano DO> Cosigner Signature (if applicable): CC: Dr. Candelario Santana MD ~ Signed [facility] Work Phone: 1(920) 111-809804-04-2023 History and physical note Author Antony Friend [facility] November 24, 2022 12:29pm Note Date/Time November 24, 2022 12:2 9pm [facility] Medical Records Department [address] [place] [address] History & Physical Exam 11/24/22 1229 MR#: [id number] Acct: [id number] Name: SHASHI OSWALD Rep #:[id number] : 1945 77 From: Antony Tran DO PCP: Dr. Candelario Santana MD Status:REG S DC Location: [place] [address] History and Physical Date of Admission: 11/24/22 77 F who presents to the office today for Follow up visit. Shashi established with this clinic through hospitalization at [facility]. She presented to [facility] ED 03.20.22with abdominal pain in the RUQ [...] Appearance: average body habitus and well nourished [facility] Head: normal to inspection Ears: hearing [...] Affect: normal affect Quality Reporting Tobacco Screening ([facility] 138) Smoking Status: Never smoker Assessment and [...] applicable): CC: Dr. Candelario Santana MD; Antony Tran, ~ Signed [facility] Work Phone: 1(942) 297-521004-04-2023 [facility] HospitalEvaluation noteNo assessment information availableWProMedica Memorial Hospital Work Phone: Evaluation note* Diagnosis Onset Date Resolution Status Acute gallstone pancreatitis acute Choledocholithiasis acute Pancreatitis acute UTI (urinary tract infection) acute [facility] Work Phone: Evaluation note* Diagnosis Onset Date Resolution Status Acute gallstone pancreatitis resolved Choledocholithiasis resolved Pancreatitis resolved UTI (urinary tract infection) resolved [facility] Work Phone: Evaluation note* Diagnosis Onset Date Resolution Status Acute gallstone pancreatitis resolved Choledocholithiasis resolved Pancreatitis resolved UTI (urinary tract infection) resolved Bronchitis acute Choledocholithiasis acute [facility] Work Phone: Evaluation note* Diagnosis Onset Date Resolution Status Bronchitis acute Choledocholithiasis acute Bronchitis acute Choledocholithiasis acute [facility] Work Phone: Evaluation note* Diagnosis Onset Date Resolution Status Bronchitis acute Choledocholithiasis acute [facility] Work Phone: Evaluation note* Diagnosis Onset Date Resolution Status Bronchitis acute Bronchitis acute Constipation chronic [facility] Work Phone: Evaluation note* Diagnosis Onset Date Resolution Status Bronchitis acute Constipation chronic [facility] Work Phone: Evaluation note* Diagnosis Onset Date Resolution Status Admit Date Fall acute February 15 2:56pm Hip fracture acute February 15 025 2:56pm [facility] Work Phone: History and physical note Author Lakeshia Mas [facility] Note Date/Time February 15, 2025 3:05 pm [facility] Medical Records Department [address] [place] [address] H&P Exam - Hospitalist 02/15/25 1456 MR#: [id number] Acct: [id number] Name: SHASHI OSWALD Rep #:[id number] : 1945 79 From: Lakeshia Mas MD PCP: Dr. Candelario Santana MD Status:REG E R Location: ED HPI - General General Date of Admission: 02/15/25 Date of Service: 02/15/25 Chief Complaint: Left hip fracture HPI Narrative SHASHI OSWALD, is a 79-year-old female history of diabetes, hypertension, hypothyroidism presented to [facility] ED 02/15/2025 with inability to walk. [...] get up she called EMS [facility]. On arrival in the ED patient [...] has no other new or acute complaints [facility] Medical History Wears glasses Rash Thyroid [...] % (Auto) 50.2, Lymph % (Auto) 38.6, Mclennan% (Auto) 8.7, Eos % (Auto) 1.8, Baso [...] Clarity Clear, Urine pH 6.5, Ur Specific [place] 1.010, Urine Protein 30 H, Urine Glucose (UA) Normal, Urine Ketones 15 H, Urine Occult Blood 10 H, Urine Nitrite Negative, Urine Bilirubin Negative, Urine Urobilinogen 8 H, Ur Leukocyte Esterase Negative Imaging Radiology Impression Femur X-Ray 02/15/25 13:40 IMPRESSION: Comminuted impacted left intertrochanteric fracture. Reading Location: [facility] Hip/Pelvis X-Ray 02/15/25 13:40 IMPRESSION: Comminuted impacted left intertrochanteric fracture. Reading Location: [facility] Assessment & Plan Assessment/Plan (1) Hip fracture: [...] Mas MD Charges/Coding Visit Charges Inpatient E&M: 78509 Init Hosp L2 02/15/25 1505 <Electronically signed by Lakeshia Mas MD> Cosigner Signature (if applicable): CC: Dr. Lakeshia Mas MD; Dr. Cadnelario Santana MD~ Signed [facility] Work Phone: Hospital Discharge instructionsAdditional Instructions 1. [...] was negative for DVT. Date of Discharge: 03/09/25[facility] Work Phone: Hospital Discharge instructionsAdditional Instructions Hold next 3 doses of EliquisWPro[facility] Work Phone: Reason for referral (narrative)No reason for referral information availableWhite Hospital Work Phone: Summary Purpose Family History [...] No May 12, 2020 4:41am Power of Sonographer No April 4:41am Advance Directive Response Recorded Date/ Time Living Will No March 20, 2022 2:13am Power of Sonographer No March 20 2:13am Advance Directive Response Recorded Date/ Time Living Will No March 20, 2022 6:32am Power of Sonographer No March 20 6:32am Advance Directive Response Recorded Date/ Time Living Will No March 20, 2022 5:32am Power of Sonographer No March 20 5:32am Advance Directive Response Recorded Date/ Time Living Will No November 20, 2022 12:16pm Power of Sonographer No November 20 12:16pm Advance Directive Response Recorded Date/ Time Living Will No November 20, 2022 11:16am Power of Sonographer No November 20 11:16am Advance Directive Response Recorded Date/ Time Do you have a Healthcare Power of Sonographer? No February 15, 2025 1:15pm Advance Directive Response Recorded Date/ Time Do you have a Healthcare Power of Sonographer? No February 15, 2025 4:04pm Advance Directive Response Recorded Date/ Time Do you have a Healthcare Power of Sonographer? No February 15, 2025 4:04pm Do you have a Healthcare Power of Sonographer? No February 22, 2025 6:07pm Advance Directive Response Recorded Date/ Time Do you have a Healthcare Power of Sonographer? No February 15, 2025 4:04pm Do you have a Healthcare Power of Sonographer? No February 22, 2025 6:07pm Do you have a Healthcare Power of Sonographer? No March 18, 2025 10:24am Chief Complaint and Reason for Visit Chief [...] 2:16p m Urinary bladder incontinence February 21, 2 025 2:16pm Vitamin D deficiency February 21, 2025 2:16 pm Osteoporosis February 21, 2025 2:16p m Constipation February 21, 2025 2:16p m Intertrochanteric fracture of left femur February 21, 2025 2:16pm History of open reduction an d internal fixation (ORIF) procedure February 21, 2025 2:16pm Chief Complaint Admit Date LEFT HIP FRACTURE [...] HIP ORIF March 08, 2025 3:49 pm LAB WORK March 13, 2025 4:00 am FALL March 18, 2025 10:2 0am Reason for Visit Admit Date Occult blood [...] 2:56pm Debility February 21, 2025 2:16p m Hyponatremia February 21, 2025 2:16p m Occult blood in stools February 21, 2025 2: 16pm Paroxysmal atrial fibrillation February 21, 2025 2:16pm Anemia February 21, 2025 2:16p m Fecal incontinence February 21, 2025 2:16p m Right carotid bruit February 21, 2025 2:16p m Urinary bladder incontinence February 21, 2:16pm Vitamin D deficiency February 21, 2025 2:16 pm Osteoporosis February 21, 2025 2:16p m Constipation February 21, 2025 2:16p m Intertrochanteric fracture of left femur February 21, 2025 2:16pm Orthostatic hypotension February 21, 2025 2 :16pm Cognitive dysfunction February 21, 2025 2:1 6pm Diabetes mellitus, type 2 February 21, 2025 2:16pm H/O thyroidectomy February 21, 2025 2:16p m History of hemorrhoids February 21, 2025 2: 16pm History of open reduction an d internal fixation (ORIF) procedure February 21, 2025 2:16pm Hyperlipemia February 21, 2025 2:16p m Hypothyroidism February 21, 2025 2:16p m Murmur, cardiac February 21, 2025 2:16p m Parkinson's disease February 21, 2025 2:16p m Status post hip surgery February 21, 2025 2 :16pm Chief Complaint Admit Date LEFT HIP FRACTURE [...] HIP ORIF March 08, 2025 3:49 pm LAB WORK March 13, 2025 4:00 am FALL March 18, 2025 10:2 0am LAB WORK March 20, 2025 5:00 am LEFT HIP March 29, 2025 1:5 4pm room 4 March 29, 2025 2:0 8pm Reason for Visit Admit Date Occult blood [...] 2:56pm Debility February 21, 2025 2:16p m Hyponatremia February 21, 2025 2:16p m Occult blood in stools February 21, 2025 2: 16pm Paroxysmal atrial fibrillation February 21, 2025 2:16pm Anemia February 21, 2025 2:16p m Fecal incontinence February 21, 2025 2:16p m Right carotid bruit February 21, 2025 2:16p m Urinary bladder incontinence February 21, 2 025 2:16pm Vitamin D deficiency February 21, 2025 2:16 pm Osteoporosis February 21, 2025 2:16p m Constipation February 21, 2025 2:16p m Intertrochanteric fracture of left femur February 21, 2025 2:16pm Orthostatic hypotension February 21, 2025 2 :16pm Cognitive dysfunction February 21, 2025 2:1 6pm Diabetes mellitus, type 2 February 21, 2025 2:16pm H/O thyroidectomy February 21, 2025 2:16p m History of hemorrhoids February 21, 2025 2: 16pm History of open reduction an d internal fixation (ORIF) procedure February 21, 2025 2:16pm Hyperlipemia February 21, 2025 2:16p m Hypothyroidism February 21, 2025 2:16p m Murmur, cardiac February 21, 2025 2:16p m Parkinson's disease February 21, 2025 2:16p m Status post hip surgery February 21, 2025 2 :16pm Intertrochanteric fracture of left femur March 29, 2025 1:54pm History of open reduction an d internal fixation (ORIF) procedure March 29, 2025 1:54pm Additional Source Comments INFORMATION SOURCE (unrecogn ized section and content) DATE CREATED AUTHOR 02/08/2018 [employer] DATE CREATED AUTHOR AUTHOR'S ORGANIZ ATION 02/16/2018 [facility] [employer] DATE CREATED AUTHOR AUTHOR'S ORGANIZ ATION 02/16/2018 [facility] [employer] DATE CREATED AUTHOR AUTHOR'S ORGANIZ ATION 05/17/2025 [facility] Goals (unrecognized section and content) Goals [...] End: February 21, 2025 Dr. Gia Owusu , Attending Provider Active S tart: February 15, [...] Provider Active Start: February 17, 2025 Dr. Lakesiha Mas MD Admit Provider Active Star t: [...] Start: February 19, 2025 Dr. Abdirashid Cano , DO Referring Provider Active Start: February 19, 2025 Dr. Abdirashid Cano , DO Emergency Provider Active Start: February 19, 2025 Dr. Lakeshia Mas MD Admit Provider Active Star t: February 19, 2025 Dr. Lakeshia Mas MD Other Provider Active Star t: February 19, 2025 Dr. Matt Chacon MD Other Provider Active Star t: February 19, 2025 Dr. Gia Owusu , DO Attending Provider Active S tart: [...] February 20, 2025 Dr. Abdirashid Cano , DO Emergency Provider Active Start: February 20, 2025 Dr. Lakeshia Mas MD Admit Provider Active Star t: February 20, 2025 Dr. Lakeshia Mas MD Other Provider Active Star t: February 20, 2025 Dr. Matt Chacon MD Other Provider Active Star t: February 20, 2025 Dr. Gia Owusu , DO Attending Provider Active S tart: February 20, 2025 Dr. Gia Owusu , DO Other Provider Active Start : February 20, 2025 Dr. Baldev Berry DO Other Provider Active Star t: February 20, 2025 Team Status: Active Member Role/Relationship Status Dates Dr. Candelario Santana MD Primary Care Provider Active Start: February 21, 2025 Dr. Abdirashid Cano , DO Referring Provider Active Start: February 21, 2025 Dr. Abdirashid Cano , DO Emergency Provider Active Start: February 21, 2025 Dr. Lakeshia Mas MD Admit Provider Active Star t: February 21, 2025 Dr. Lakeshia Mas MD Other Provider Active Star t: February 21, 2025 Dr. Matt Chacon MD Other Provider Active Star t: February 21, 2025 Dr. Gia Owusu , DO Attending Provider Active S tart: February 21, 2025 Dr. Gia Owusu , DO Other Provider Active Start : February 21, 2025 Dr. Baldev Berry , DO Other [...] t: February 19, 2025 Dr. Gia Owusu , DO Other Provider Active Start : February 19, 2025 Dr. Baldev Berry , DO Other Provider Active Star t: February 19, 2025 Team Status: Active Member Role/Relationship Status Dates Dr. Candelario Santana MD Primary Care Provider Active Start: February 19, 2025 Dr. Abdirashid Cano , Emergency Provider Active Start: February 19, 2025 Dr. Lakeshia Mas MD Admit Provider Active Star t: February 19, 2025 Dr. Lakeshia Mas MD Other Provider Active Star t: February 19, 2025 Dr. Matt Chacon MD Other Provider Active Star t: February 19, 2025 Dr. Gia Owusu , Attending Provider Active S tart: February 19, 2025 Dr. Gia Owusu , DO Other Provider Active Start : February 19, 2025 Dr. Baldev Berry , DO Other Provider Active Star t: February 19, 2025 Team Status: Active Member Role/Relationship Status Dates Dr. Candelario Santana MD Primary Care Provider Active Start: February 20, 2025 Dr. Abdirashid Cano , DO Emergency Provider Active Start: February 20, 2025 Dr. Lakeshia Mas MD Admit Provider Active Star t: February 20, 2025 Dr. Lakeshia Mas MD Other Provider Active Star t: February 20, 2025 Dr. Matt Chacon MD Other Provider Active Star t: February 20, 2025 Dr. Gia Owusu DO Attending Provider Active S tart: February 20, 2025 Dr. Gia Owusu , DO Other Provider Active Start : February 20, 2025 Dr. Baldev Berry DO Other Provider Active Star t: February 20, 2025 Team Status: Active Member Role/Relationship Status Dates Dr. Candelario Santana MD Primary Care Provider Active Start: February 21, 2025 Dr. Abdirashid Cano , DO Emergency Provider Active Start: February 21, 2025 Dr. Lakeshia Mas MD Admit Provider Active Star t: February 21, 2025 Dr. Lakeshia Mas MD Other Provider Active Star t: February 21, 2025 Dr. Matt Chacon MD Other Provider Active Star t: February 21, 2025 Dr. Gia Owusu , DO Attending Provider Active S tart: February 21, 2025 Dr. Gia Owusu , DO Other Provider Active Start : February 21, 2025 Dr. Baldev Berry , Other Provider Active Star t: February 21, [...] February 23, 2025 Dr. Katie Bah DO Attending Provider [...] Act luna Start: February 26, 2025 Dr. Lizet Sementi , DO Referring Provider Act luna Start: February 26, 2025 Dr. Katie Bah , DO Other Provider Active Start: February 26, 2025 Team Status: Active Member Role/Relationship Status Dates Dr. Candelario Santana MD Primary Care Provider Active Start: February 27, 2025 Dr. Steve Werner MD Attending Provider Active S tart: February 27, 2025 Team Status: Active Member Role/Relationship Status Dates Dr. Candelario Santana MD Primary Care Provider Active Start: February 28, 2025 Dr. Katie Bah , DO Admit Provider Active Start: February 28, 2025 Dr. Katie Bah , DO Attending Provider Act luna Start: February 28, 2025 Dr. Katie Bah , DO Referring Provider Act luna Start: February 28, 2025 Dr. Katie Bah DO Other Provider Active Start: February 28, 2025 Team Status: Active Member Role/Relationship Status Dates Dr. Candelario Santana MD Primary Care Provider Active Start: March 01, 2025 Dr. Katie Bah , Admit Provider Active Start: March 01, 2025 Dr. Katie Bah , DO Attending Provider Act luna Start: March 01, 2025 Dr. Katie Bah , DO Referring Provider Act luna Start: March 01, 2025 Dr. Katie Bah , Other Provider Active Start: March 01, 2025 Team Status: Active Member Role/Relationship Status Dates Dr. Candelario Santana MD Primary Care Provider Active Start: March 01, 2025 Dr. Badlev Kaba MD Attending Provider Active S tart: March 01, 2025 Team Status: Active Member Role/Relationship Status Dates Dr. Candelario Santana MD Primary Care Provider Active Start: March 05, 2025 Dr. Katie Bah , DO Admit Provider Active Start: March 05, 2025 Dr. Katie Bah , DO Attending Provider Act luna Start: March 05, 2025 Dr. Katie Bah DO Referring Provider Act luna Start: March 05, 2025 Dr. Katie Bah , Other Provider Active Start: March 05, 2025 Team Status: Active Member Role/Relationship Status Dates Dr. Candelario Santana MD Primary Care Provider Active Start: March 05, 2025 Dr. Katie Bah , DO Admit Provider Active Start: March 05, 2025 Dr. Katie Bah , DO Referring Provider Act luna Start: March 05, 2025 Dr. Katie Bah , DO Other Provider Active Start: March 05, 2025 LEONIE Delaney Attending Provider Active Star t: March 05, 2025 Team Status: Active Member Role/Relationship Status Dates Dr. Candelario Santana MD Primary Care Provider Active Start: March 06, 2025 Dr. Katie Bah , DO Admit Provider Active Start: March 06, 2025 Dr. Katie Bah , DO Attending Provider Act luna Start: March 06, 2025 Dr. Katie Bah , DO Referring Provider Act luna Start: March 06, 2025 Dr. Katie Bah , DO Other Provider Active Start: March 06, 2025 Team Status: Active Member Role/Relationship Status Dates Dr. Candelario Santana MD Primary Care Provider Active Start: March 08, 2025 Dr. Katie Bah , Admit Provider Active Start: March 08, 2025 Dr. Katie Bah , DO Attending Provider Act luna Start: March 08, 2025 Dr. Katie Bah , DO Referring Provider Act luna Start: March 08, 2025 Dr. Katie Bah , DO Other Provider Active Start: March 08, 2025 Team Status: Active Member Role/Relationship Status Dates Dr. Candelario Santana MD Primary Care Provider Active Start: February 26, 2025 Dr. Katie Bah , DO Admit Provider Active Start: February 26, 2025 Dr. Katie Bah , DO Attending Provider Act luna Start: February 26, 2025 Dr. Katie Bah , DO Other Provider Active Start: February 26, 2025 Team Status: Active Member Role/Relationship Status Dates Dr. Candelario Santana MD Primary Care Provider Active Start: February 28, 2025 Dr. Katie Bah , DO Admit Provider Active Start: February 28, 2025 Dr. Katie Bah , DO Attending Provider Act luna Start: February 28, 2025 Dr. Katie Bah DO Other Provider Active Start: February 28, 2025 Team Status: Active Member Role/Relationship Status Dates Dr. Candelario Santana MD Primary Care Provider Active Start: March 01, 2025 Dr. Katie Bah DO Admit Provider Active Start: March 01, 2025 Dr. Katie Bah DO Attending Provider Act luna Start: March 01, 2025 Dr. Katie Bah DO Other Provider Active Start: March 01, 2025 Team Status: Active Member Role/Relationship Status Dates Dr. Candelario Santana MD Primary Care Provider Active Start: March 13, 2025 Dr. Pineda FORD MD Attending Provider Active Start: March 13, 2025 Dr. Pineda FORD MD Referring Provider Active Start: March 13, 2025 Team Status: Inactive Member Role/Relationship Status Dates Dr. Candelario Santana MD Primary Care Provider Active Start: March 18, 2025 End: March 18, 2025 Dr. Cj Ordonez MD Emergency Provider Active Sta rt: March 18, 2025 End: March 18, 2025 Team Status: Active Member Role/Relationship Status Dates Dr. Candelario Santana MD Primary Care Provider Active Start: March 01, 2025 Dr. Baldev Kaba MD Attending Provider Active S tart: March 01, 2025 Dr. Katie Bah DO Referring Provider Act luna Start: March 01, 2025 Team Status: Active [...] Other Provider Active Start: March 08, 2025 Team Status: Inactive Member Role/Relationship Status Dates Dr. Candelario Santana MD Primary Care Provider Active Start: March 18, 2025 End: March 18, 2025 Dr. Cj Ordonez MD Attending Provider Active Sta rt: March 18, 2025 End: March 18, 2025 Dr. Cj Ordonez MD Emergency Provider Active Sta rt: March 18, 2025 End: March 18, 2025 Team Status: Active Member Role/Relationship Status Dates Dr. Candelario Santana MD Primary Care Provider Active Start: March 20, 2025 Dr. Pineda FORD MD Attending Provider Active Start: March 20, 2025 Team Status: Active Member Role/Relationship Status Dates Dr. Candelario Santana MD Primary Care Provider Active Start: March 29, 2025 Dr. Candelario Santana MD Referring Provider Active Start: March 29, 2025 BIANKA Partida Attending Provider Active Start: March 29, 2025 Team Status: Inactive Member Role/Relationship Status Dates Dr. Candelario Santana MD Primary Care Provider Active Start: March 29, 2025 End: March 29, 2025 Dr. Steve Werner MD Attending Provider Active S tart: March 29, 2025 End: March 29, 2025 Team Status: Inactive Member Role/Relationship Status Dates Dr. Candelario Santana MD Primary Care Provider Active Start: March 29, 2025 End: March 29, 2025 Dr. Candelario Santana MD Referring Provider Active Start: March 29, 2025 End: March 29, 2025 BIANKA Partida Attending Provider Active Start: March 29, 2025 End: March 29, 2025 FOR RECORDS PERTAINING TO PATIENTS WHO [...] BE BASED ON THE PRIMARY CLINICAL RECORDS. [facility] [employer] [facility]. provides no warranty or guarantee of the accuracy or completeness of information in this document.
[2025-07-02 22:37] LABS: Hematocrit 34.5 % (37-47); Hemoglobin 12.6 g/dL (12.0-15.0); Immature Granulocytes Count 0.020 X10^3/uL (0.0-0.0); Mean Corp Hgb Conc 36.5 g/dL (32-36); Mean Corpuscular Volume 89.1 fL (81-99); Mean Platelet Vol. 9.1 fl (6.2-12.0); NRBC Flagged by Analyzer 0 % (0-5); Platelet Count 238 K/mm3 (150-450); RBC Distribution Width CV 13.3 % (11.6-14.6); RBC Distribution Width SD 43.3 fl (35.1-43.9); Red Blood Count 3.87 M/mm3 (4.2-5.4); White Blood Count 8.3 K/mm3 (4.4-11.0)
[2025-07-02 22:43] LABS: Anion Gap 13 (5-15); BUN 11 mg/dL (4-19); BUN/Creat Ratio 17.9 RATIO (10-20); Calcium,Total 9.1 mg/dL (7.6-11.0); Carbon Dioxide 18.7 mmol/L (21.0-32.0); Chloride 109 mmol/L (98-108); Estimated Creatinine Clearance 45.84 ml/min (50-250); Glucose 162 mg/dL (70-99); Potassium 3.3 mmol/L (3.3-5.1)
--- NOTE | 2025-07-02 23:01 | EX.ED.DYSGE1 ---
HPI History of Present Illness Chief Complaint: Lower Extremity Injury Narrative Narrative: Chief complaint and HPI: 80-year-old female with past medical history of osteoporosis, left hip replacement, hypothyroidism, Parkinson's disease presents for evaluation of left hip pain. History taken by patient as well as family member. Family member states that the patient often "wanders". States she fell on Wednesday which was witnessed. States he helped her up. Since the fall patient has been complaining of right hip pain in which she does not want to ambulate. Triage note states left hip pain however patient states it is right. She denies hitting her head although son thinks she may have hit her head. She is on Eliquis. She denies any headache, neck pain, back pain, chest pain, shortness of breath, abdominal pain, nausea, vomiting. Son is concerned maybe she has a UTI. Son states that he has been caring the patient from place to place given she does not want to ambulate. Review of systems: See HPI Medications: As listed on the chart Allergies: As listed on the chart PFSH: Per chart Vital signs: As listed on the chart. Reviewed. Physical exam: Gen: A&O x3, NAD Head: Normocephalic, atraumatic Eyes: No sclera icterus, conjunctiva clear, PERRL, EOMI ENT: TMs clear BL, moist mucous membranes, face atraumatic and nontender Neck: Trachea midline, nontender, full range of motion CV: RRR, no murmurs, no chest wall TTP Resp: Lungs CTA BL, no w/r/c GI: Abd soft, non-distended, non-tender, no r/r/g Musc: Full ROM of all the extremities including the right hip although endorses pain with movement of the right hip, no knee tenderness, no deformity, compartments soft, DP/PT pulses +2 bilaterally, no spinal TTP, no marina step-offs Skin: Warm, dry, intact Neuro: Alert, oriented, grossly intact, sensation intact, GCS 15 Psych: Cooperative, appropriate mood and affect [facility] Medical History Cognitive dysfunction History of hemorrhoids Murmur, cardiac Hyperlipemia Hypothyroidism Diabetes mellitus, type 2 High total serum IgA Pre-syncope Tachycardia Elevated troponin Choledocholithiasis Rheumatoid arthritis Kidney stones Asthma Irregular heart beat Migraines Parkinson's disease Wears glasses Arthritis Restless legs Syncope Dietary restriction Non-smoker Leg cramps Chronic anemia Hypertension Home Medications Medication Instructions Recorded Last Taken Type carbidopa 25 mg-levodopa 100 mg 1 tab PO TID parkinson 02/15/25 02/21/25 History tablet losartan 50 mg tablet 50 mg PO DAILY blood pressure 02/15/25 02/15/25 History Held on 02/21/25. Instructions: Until blood pressures are consistently greater than 130 systolic acetaminophen 500 mg tablet 1,000 mg (2 x 500 mg) PO Q8 pain 02/21/25 02/21/25 Rx #0 tabs ergocalciferol (vitamin D2) 1,250 1,250 mcg PO Q7D supplement #0 caps 02/21/25 Unknown Rx mcg (50,000 unit) capsule (Vitamin D2) bisacodyl 10 mg rectal suppository 10 mg UT X1 PRN Constipation #1 ea 03/08/25 Unknown Rx calcium carbonate 500 mg (2.5 x 200 mg calcium (500 03/08/25 Unknown Rx mg)) PO TIDCM #1 TAB diclofenac sodium 1 % topical gel 2 g topical BID #100 grams 03/08/25 Unknown Rx (Voltaren Arthritis Pain) levothyroxine 25 mcg tablet 25 mcg PO DAILY@0600 #1 TAB 03/08/25 Unknown Rx magnesium hydroxide 400 mg/5 mL 30 ml PO X1 PRN Constipation #30 mL 03/08/25 Unknown Rx oral suspension metoprolol tartrate 25 mg tablet 25 mg PO BID #1 TAB 03/08/25 Unknown Rx nifedipine 30 mg tablet,extended 30 mg PO 1000 #1 TAB 03/08/25 Unknown Rx release 24 hr sennosides 8.6 mg-docusate sodium 2 tab PO BID #1 TAB 03/08/25 Unknown Rx 50 mg tablet (Stimulant Laxative Plus) tramadol 50 mg tablet 25 mg (1/2 x 50 mg) PO 03/08/25 Unknown Rx 0700,1400,2100 1 week #21 tabs apixaban 2.5 mg tablet (Eliquis) 2.5 mg PO BID 03/29/25 Unknown History melatonin 3 mg tablet 3 mg PO QHS 04/11/25 Unknown History metformin 750 mg tablet 750 mg PO TID 04/11/25 Unknown History multivitamin 1 tab PO QAM 04/11/25 Unknown History Allergy/AdvReac Type Severity Reaction Status Date / Time Penicillins Allergy Intermediate Hives Verified 07/02/25 21:09 Family History Father Myocardial infarction Hypertension Heart disease Sister Breast cancer Mother CVA (cerebral vascular accident) Surgical History S/P CABG (coronary artery bypass graft) Status post hip surgery History of open reduction and internal fixation (ORIF) procedure Hx of right cataract extraction Hx of left cataract extraction Hx of esophagogastroduodenoscopy Hx of colonoscopy History of ERCP S/P tubal ligation History of thoracic surgery H/O thyroidectomy History of cholecystectomy Hx of appendectomy Social History household members: other details: [facility] Smoking Status: Never smoker alcohol intake: never substance use type: does not use what type of physical activity do you participate in: none EXAM Physical Exam Const Vital Signs: 07/02/25 21:07 07/02/25 23:07 Temperature 98.7 F Temperature Source Oral Pulse Rate 85 80 Respiratory Rate 18 Blood Pressure 170/85 H 158/88 H Blood Pressure Mean 113 111 Pulse Ox 98 Oxygen Delivery Method Room Air MDM MDM MDM Narrative Medical decision making narrative: 80-year-old female with past medical history of osteoporosis, left hip replacement, hypothyroidism, Parkinson's disease presents for evaluation of left hip pain. History taken by patient as well as family member. Family member states that the patient often "wanders". States she fell on Wednesday which was witnessed. States he helped her up. Since the fall patient has been complaining of right hip pain in which she does not want to ambulate. Triage note states left hip pain however patient states it is right. She denies hitting her head although son thinks she may have hit her head. She is on Eliquis. She denies any headache, neck pain, back pain, chest pain, shortness of breath, abdominal pain, nausea, vomiting. Son is concerned maybe she has a UTI. Son states that he has been caring the patient from place to place given she does not want to ambulate. He states that if nothing is found given that she will not ambulate she is not safe to discharge home. Differential diagnosis includes but is not limited to contusion, fracture, UTI, intracranial abnormality. CT head and x-ray of the pelvis and hip obtained. UA and basic labs for possible placement. Morphine and Zofran ordered. CBC without leukocytosis or anemia. Platelets unremarkable. BMP without [place] or significant electrolyte abnormality. X-ray of the hip and pelvis was personally reviewed interpreted by me, ED physician. No fracture or dislocation. Left hip replacement. Radiology in agreement. CT of the brain negative for any acute intracranial abnormality. UA positive for UTI. Urine culture sent. Noted on previous urine culture, patient grew out E. coli. Pansensitive. Rocephin ordered. Will ambulate the patient. Ambulation trial failed. Patient will warrant admission for PT/OT. Patient and family confirmed understand the plan. I spoke with the hospitalist who accepted admission. Impression: 1. Right hip contusion 2. UTI 3. Inability to ambulate Lab Data Labs: Laboratory Results - last 24 hr 07/02/25 07/02/25 22:12 23:05 WBC 8.3 RBC 3.87 L Hgb 12.6 Hct 34.5 L MCV 89.1 MCH 32.6 H MCHC 36.5 H RDW Std Deviation 43.3 RDW Coeff of [place] 13.3 Plt Count 238 MPV 9.1 Immature Gran % (Auto) 0.200 Neut % (Auto) 57.1 Lymph % (Auto) 33.7 Kay % (Auto) 7.5 Eos % (Auto) 1.0 Baso % (Auto) 0.5 Absolute Neuts (auto) 4.8 Absolute Lymphs (auto) 2.80 Nucleated RBC % 0 Sodium 140 Potassium 3.3 Chloride 109 H Carbon Dioxide 18.7 L Anion Gap 13 BUN 11 Creatinine 0.60 L Estim Creat Clear Calc 45.84 L Est GFR (MDRD) Non-Af 92 BUN/Creatinine Ratio 17.9 Glucose 162 H Calcium 9.1 Urine Color Yellow Urine Clarity Cloudy Urine pH 7.0 Ur Specific [place] 1.010 Urine Protein 100 H Urine Glucose (UA) Normal Urine Ketones Negative Urine Occult Blood 25 H Urine Nitrite Negative Urine Bilirubin Negative Urine Urobilinogen 1 H Ur Leukocyte Esterase 500 H Urine RBC 0-5 SEEN Urine WBC 25-50 SEEN Ur Squamous Epith Cells 0 SEEN Ur Transition Epith Cell 0-5 SEEN Amorphous Sediment 2+ Urine Bacteria 3+ Urine Mucus 0 SEEN Radiography Diagnostic Testing: Clinical Impression(s) from Imaging Studies Hip/Pelvis X-Ray 07/02/25 22:23 IMPRESSION: 1. No evidence of acute fracture or dislocation. 2. Mild-moderate bilateral hip arthrosis. 3. Partially imaged left femur ORIF hardware appears intact. Reading Location: [facility] Brain CT 07/02/25 23:04 IMPRESSION: No acute intracranial abnormality. Reading Location: [facility] [address] Discharge Plan Triage Chief Complaint: Lower Extremity Injury ED Provider: Misael Guzman Dx/Rx/DC Orders Prescriptions: No Action Eliquis 2.5 mg tablet 2.5 mg PO BID melatonin 3 mg tablet 3 mg PO QHS multivitamin Tablet 1 tab PO QAM metformin 750 mg tablet 750 mg PO TID losartan 50 mg tablet 50 mg PO DAILY carbidopa-levodopa 25-100 mg tablet 1 tab PO TID acetaminophen 500 mg Tablet 1,000 mg PO Q8 Qty: 0 0RF ergocalciferol (vitamin D2) [Vitamin D2] 1,250 mcg (50,000 unit) Capsule 1,250 mcg PO Q7D Qty: 0 0RF levothyroxine 25 mcg Tablet 25 mcg PO DAILY@0600 Qty: 1 0RF magnesium hydroxide 400 mg/5 mL Suspension 30 ml PO X1 PRN (Reason: Constipation) Qty: 30 0RF bisacodyl 10 mg Suppository 10 mg UT X1 PRN (Reason: Constipation) Qty: 1 0RF calcium carbonate 200 mg calcium (500 mg) Tablet,Chewable 500 mg PO TIDCM Qty: 1 0RF metoprolol tartrate 25 mg Tablet 25 mg PO BID Qty: 1 0RF nifedipine 30 mg Tablet Extended Release 24hr 30 mg PO 1000 Qty: 1 0RF sennosides-docusate sodium [Stimulant Laxative Plus] 8.6-50 mg Tablet 2 tab PO BID Qty: 1 0RF tramadol 50 mg Tablet 25 mg PO 0700,1400,2100 7 Days Qty: 21 0RF diclofenac sodium [Voltaren Arthritis Pain] 1 % gel 2 g topical BID Qty: 100 0RF Rx Instructions: apply BID to both knees Primary Care Provider: Candelario Santana Chi Referrals: Candelario Santana Chi, MD [Primary Care Provider, Geriatrics] Print Language: Occitan
--- NOTE | 2025-07-02 23:04 | CT_ITS ---
PROCEDURE: BRAIN/HEAD WITHOUT CONTRAST 07/02/2025 REASON FOR EXAM: FALL TECHNIQUE: Procedure Code: CTBR Modality: CT Procedure: BRAIN/HEAD WITHOUT CONTRAST Coronal and Sagittal reconstruction series were provided. One or more dose reduction techniques were used (e.g., Automated exposure control, adjustment of the mA and/or kV according to patient size, use of iterative reconstruction technique. RADIATION DOSE SUMMARY: CTDlvol: 44 mGy DLP: 829 mGycm COMPARISON: 03/18/2025 CT. FINDINGS: Moderate global parenchymal atrophy. Periventricular white matter hypodensity likely representing severe chronic microvascular ischemia. Bilateral basal nucleus chronic lacunar infarctions. Left occipital lobe encephalomalacia. No evidence of acute hemorrhage or infarction. No extra-axial blood or fluid collections. The paranasal sinuses and mastoid air cells are clear. The calvarial vault and skull base are intact. CT/Brain/Head without Contrast IMPRESSION: No acute intracranial abnormality. Reading Location: [id number]
[2025-07-02 23:07] VITALS: BP 158/88; PULSE 80
[2025-07-02 23:11] LABS: Mucous, Urine 0 SEEN /hpf (<or=2+); Squamous Epithelial Cells - UA 0 SEEN /hpf (5-10)
[2025-07-02 23:16] LABS: Color, Urine Yellow (Yellow); Glucose, Dipstick Normal (Normal); Ketone-Dipstick Negative (Negative); Leukocyte Esterase-Dipstick 500 /ul (Negative); Nitrite-Dipstick Negative (Negative); Occult Blood-Urine 25 /ul (Negative); Protein-Dipstick 100 mg/dl (Negative); Specific Gravity, Urine 1.010 (1.002-1.030); Urine Bilirubin Dipstick Negative (Negative)
[2025-07-02 23:28] LABS: Red Blood Cells-Urine 0-5 SEEN /hpf (0-5); Transitional Epithelial - Ur 0-5 SEEN /hpf (0-5)
--- NOTE | 2025-07-02 23:55 | ED.RN ---
Attempted to ambulate patient with 3 staff at bedside. Patient was assisted to her feet with walker, unable to take any steps and had to be lifted back into bed by staff.
[2025-07-03] VITALS (10 sets, daily range): BP systolic 106–131; BP diastolic 47–99; PULSE 60–84; RESP 16–20; TEMP 36.1–36.8; O2SAT 96–100; BMI 20.5
--- NOTE | 2025-07-03 00:14 | PCM.HP.STD ---
[facility] ER General General Date of Admission: 07/03/25 Date of Service: 07/03/25 Chief Complaint: Frequent falls HPI Narrative SHASHI OSWALD, is a 80 F who presents to the emergency room for evaluation for pain after a fall on Wednesday that was witnessed. Patient complains of right hip pain after her fall and is unable to ambulate. Patient has significant past medical history of osteoporosis, left hip replacement, hypothyroidism, Parkinson's disease and dementia. The son also reported that she may have hit her head on her fall as well and she is anticoagulated on Eliquis therefore CT head was done and was negative. Patient denies headache, neck pain back pain, chest pain or shortness of breath and/or nausea or vomiting. Due to her recent inability to ambulate patient's son is also concerned that she may have a UTI. The patient's son who is her primary caregiver admits he is not able to carry her around the house for her activities of daily living and that she needs rehabilitation and possible long-term care. Laboratory studies reveal white blood cell count of 8.3, hemoglobin 12.6, hematocrit 34.5, platelets 238, sodium 140, potassium 3.3, chloride 109, bicarb 18.7, BUN 11, creatinine 1.6, glucose 162, CRP 9.63, TSH 3.3, UA 3+ bacteria. CT scan of the brain was negative for intracranial hemorrhage and x-rays of the hip and pelvis were also negative for any acute fracture. Patient will be admitted to general medical floor case management consulted for long-term placement in rehab. [facility] Medical History (Updated 07/03/25 @ 00:[address] Rojas Elizalde MD) Cognitive dysfunction History of hemorrhoids Murmur, cardiac Hyperlipemia Hypothyroidism Diabetes mellitus, type 2 High total serum IgA Pre-syncope Tachycardia Elevated troponin Choledocholithiasis Rheumatoid arthritis Kidney stones Asthma Irregular heart beat Migraines Parkinson's disease Wears glasses Arthritis Restless legs Syncope Dietary restriction Non-smoker Leg cramps Chronic anemia Hypertension Home Medications Medication Instructions Recorded Last Taken Type carbidopa 25 mg-levodopa 100 mg 1 tab PO TID parkinson 02/15/25 02/21/25 History tablet acetaminophen 500 mg tablet 1,000 mg (2 x 500 mg) PO Q8 pain 02/21/25 02/21/25 Rx #0 tabs ergocalciferol (vitamin D2) 1,250 1,250 mcg PO Q7D supplement #0 caps 02/21/25 Unknown Rx mcg (50,000 unit) capsule (Vitamin D2) calcium carbonate 500 mg (2.5 x 200 mg calcium (500 03/08/25 Unknown Rx mg)) PO TIDCM #1 TAB diclofenac sodium 1 % topical gel 2 g topical BID #100 grams 03/08/25 Unknown Rx (Voltaren Arthritis Pain) levothyroxine 25 mcg tablet 25 mcg PO DAILY@0600 #1 TAB 03/08/25 Unknown Rx melatonin 3 mg tablet 3 mg PO QHS 04/11/25 Unknown History multivitamin 1 tab PO QAM 04/11/25 Unknown History Allergy/AdvReac Type Severity Reaction Status Date / Time Penicillins Allergy Intermediate Hives Verified 07/02/25 21:09 Family History Father Myocardial infarction Hypertension Heart disease Sister Breast cancer Mother CVA (cerebral vascular accident) Surgical History S/P CABG (coronary artery bypass graft) Status post hip surgery History of open reduction and internal fixation (ORIF) procedure Hx of right cataract extraction Hx of left cataract extraction Hx of esophagogastroduodenoscopy Hx of colonoscopy History of ERCP S/P tubal ligation History of thoracic surgery H/O thyroidectomy History of cholecystectomy Hx of appendectomy Social History household members: other details: [facility] Smoking Status: Never smoker alcohol intake: never substance use type: does not use what type of physical activity do you participate in: none ROS Review of Systems ROS Unobtainable: due to mental status Constitutional Constitutional: Denies chills or fever(s) Eyes Eyes: Denies blurry vision ENT HEENT: Denies abnormal hearing Cardiovascular Cardiovascular: Denies chest pain Respiratory/Chest Respiratory/Chest: Denies shortness of breath at rest Gastrointestinal Gastrointestinal: Denies abdominal pain Genitourinary Genitourinary: Denies dysuria Musculoskeletal Musculoskeletal: Reports joint pain, joint stiffness and muscle weakness; Denies back pain Integumentary Integumentary: Denies dry skin Neurologic Neurologic: Reports abnormal speech, confusion and weakness Psychiatric Psychiatric: Reports anxiety Vital Signs Vital Signs Vital Signs: 07/02/25 21:07 07/02/25 23:07 07/03/25 00:07 Temperature 98.7 F 97.8 F Temperature Source Oral Pulse Rate 85 80 81 Respiratory Rate 18 20 H Blood Pressure 170/85 H 158/88 H 131/99 H Blood Pressure Mean 113 111 109 Pulse Ox 98 100 Oxygen Delivery Method Room Air Weight Weight: 119 lb 14.903 oz Body Mass Index (BMI) 21.9 Physical Exam Const alert General Appearance: cooperative Orientation / Consciousness: confused HEENT normocephalic and head/scalp atraumatic Eyes PERRL and EOMs intact bilaterally Neck no lymphadenopathy Lymph Lymphatic: no lymphadenopathy noted Resp normal respiratory effort, normal air movement and clear to auscultation bilaterally Cardio regular rate, regular rhythm, S1 normal heart sound and S2 normal heart sound GI normal to inspection, nondistended, normoactive bowel sounds Extremity normal capillary refill Skin General Skin Exam: no breakdown Neuro Speech: speech abnormal Details: Positive for stuttering Motor Exam: general weakness Psych cooperative Mood & Affect: flat affect Results Lab / Micro Data 07/02/25 22:12 07/02/25 22:12 Labs: Laboratory Results - last 24 hr 07/02/25 22:12: WBC 8.3, RBC 3.87 L, Hgb 12.6, Hct 34.5 L, MCV 89.1, MCH 32.6 H, MCHC 36.5 H, RDW Std Deviation 43.3, RDW Coeff of [place] 13.3, Plt Count 238, MPV 9.1, Immature Gran % (Auto) 0.200, Neut % (Auto) 57.1, Lymph % (Auto) 33.7, [place] % (Auto) 7.5, Eos % (Auto) 1.0, Baso % (Auto) 0.5, Absolute Neuts (auto) 4.8, Absolute Lymphs (auto) 2.80, Nucleated RBC % 0, Sodium 140, Potassium 3.3, Chloride 109 H, Carbon Dioxide 18.7 L, Anion Gap 13, BUN 11, Creatinine 0.60 L, Estim Creat Clear Calc 45.84 L, Est GFR (MDRD) Non-Af 92, BUN/Creatinine Ratio 17.9, Glucose 162 H, Calcium 9.1 07/02/25 23:05: Urine Color Yellow, Urine Clarity Cloudy, Urine pH 7.0, Ur Specific [place] 1.010, Urine Protein 100 H, Urine Glucose (UA) Normal, Urine Ketones Negative, Urine Occult Blood 25 H, Urine Nitrite Negative, Urine Bilirubin Negative, Urine Urobilinogen 1 H, Ur Leukocyte Esterase 500 H, Urine RBC 0-5 SEEN, Urine WBC 25-50 SEEN, Ur Squamous Epith Cells 0 SEEN, Ur Transition Epith Cell 0-5 SEEN, Amorphous Sediment 2+, Urine Bacteria 3+, Urine Mucus 0 SEEN Imaging Radiology Impression Hip/Pelvis X-Ray 07/02/25 22:23 IMPRESSION: 1. No evidence of acute fracture or dislocation. 2. Mild-moderate bilateral hip arthrosis. 3. Partially imaged left femur ORIF hardware appears intact. Reading Location: [facility] Brain CT 07/02/25 23:04 IMPRESSION: No acute intracranial abnormality. Reading Location: [facility] Assessment & Plan Assessment/Plan (1) Osteoporosis: QUALIFIERS: Osteoporosis type: age-related Presence of current pathological fracture: without current pathological fracture Qualified Code(s): M81.0 - Age-related osteoporosis without current pathological fracture (2) Debility: (3) Frequent falls: (4) UTI (urinary tract infection): PLAN: Plan 1 frequent falls with debility and inability to ambulate–admit patient to general medical floor, consult physical therapy for strength and rehab, consult case management for long-term placement. Fall precautions in place 2. Parkinson's disease–continue Parkinson's medication 3. Urinary tract infection–Rocephin 1 g IV every 24 hours, repeat CBC BMP in the a.m. 4. dvt prophylaxis- pt is anticoagulated 5. code status-full code verified Charges/Coding Visit Charges Inpatient E&M: 38733 Init Hosp L2
--- OUTSIDE RECORDS SUMMARY | 2025-07-03 00:50 | XMS RPT_ITS | CCD ---
Author Organization [facility] Care Team Providers Care End User Support Specialist Name Role Phone Abhay Ferreira . Unavailable Unavailable PROVIDER, UNKNOWN Unavailable Unavailable MAX, CANDELARIO-CHI Unavailable Unavailable Joe Hein Unavailable Unavailable PROVIDER, UNKNOWN Unavailable Unavailable Max, Candelario Chi Unavailable Unavailable REFERRINGCARYN Unavailable Unavailable MAX, CANDELARIO-CHI Unavailable Unavailable MAX, CANDELARIO-CHI Unavailable Unavailable Dr. Candelario Sanatna Chi Primary Care Provider [phone] [...] byron Ordonez MD, Dr. Corona Emergency Provider [phone] José Luis ALFARO, Dr. Corona Attending Provider Prakash SALES REPRESENTATIVE [employer], More Attending Provider Max, Candelario Chi Primary [...] Unavailable Max, Candelario Chi Primary Care Unavailable Sergo Chaney Attending Unavailable Max, Candelario Chi Referring [...] Penicillins; Translations: [Penicillins] Allergy to substance 10-22-2020 [facility] Medications Current Medications Medication Drug Class(es) [...] knees docusate sodium 50 mg / sennosides, care home 8.6 mg oral tablet (9 sources) Start: [...] Coma; stupor; and brain damage (3 sources) [place] coma scale finding; Translations: [Fawn coma scale [...] sources) Long-term current use of anticoagulant; Translations: [buttermaker (current) use of anticoagulants] 03-18-2025 Episodic Other [...] Onset: 02-13-2017 Episodic Other aftercare (4 sources) buttermaker (current) use of aspirin; Translations: [buttermaker (current) use of insulin] Onset: 02-13-2017 Episodic [...] 03-29-20 25 Femur Min 2 Views Normal [facility] Orthopedic Visit Reporton Orthopedic Visit Report Normal [facility] Pelvis 1 or 2 Viewson 2024 Pelvis 1 or 2 Views Normal [facility] CRPon 03-20-2025 C-REACTIVE PROT 9.63 mg/L High 0.0-3.0 [facility] Comment on above: Order Comment: 204.1 Performed By: #### L 501.9310, L101.9900, L501.9985, L501.9520, L501.6710 ####[facility] [address] [place], [place], [id number] Erythrocyte Sed Rateon 03-20 SED RATE 20 mm/hr Normal 0- [facility] Comment on above: Order Comment: 204.1 Performed By: #### L 501.9310, L101.9900, L501.9985, L501.9520, L501.6710 ####[facility] [address] [place], [place], [id number] Erythrocyte sedimentation ra teOrdered By: Pineda Morrison on 03-20-2025 ESR (Bld) [Velocity] 20 mm/h 0-30 [facility] Hemoglobin A1con 03-20-2025 HbA1c (Bld) [Mass fraction] 5.7 % Normal <=5.6 [facility] Comment on above: Order Comment: 204.1 Result Comment: Norm al < 5.7 % Prediabetic 5.7 - 6.4 % Diabetic >or= 6.5 % Please note range changes. Performed By: #### L 501.9310, L101.9900, L501.9985, L501.9520, L501.6710 ####[facility] [address] [place], [place], [id number] Hemoglobin A1c percentageOrd ered By: Pineda Morrison on 03-20-2025 HbA1c (Bld) [Mass fraction] 5.7 % <5.7 [facility] Comment on above: Normal < 5.7 % Predi abetic 5.7 - 6.4 % Diabetic >or= 6.5 % Please note range changes. Serum or plasma C reactive p rotein measurement (mass/volume)Ordered By: Pineda Morrison on 03-20-2025 CRP [Mass/Vol] 9.63 mg/L High 0.0-3.0 [facility] T4 Total, Thyroxinon 025 T4 [Mass/Vol] 6.6 ug/dL Normal 4.8-13.9 [facility] Comment on above: Order Comment: 204.1 Performed By: #### L 501.9310, L101.9900, L501.9985, L501.9520, L501.6710 ####[facility] [address] [place], [place], [id number] TSH DL <= 0.005 mIU/L QnOrde red By: Pineda Morrison on 03-20-2025 TSH Qn 3.310 uIU/mL 0.300-4.200 [facility] Thyroid Stim Hormone (TSH)on 03-20-2025 TSH 3.310 uIU/mL Normal 0.300-4.200 [facility] Comment on above: Order Comment: 204.1 Performed By: #### L 501.9310, L101.9900, L501.9985, L501.9520, L501.6710 ####[facility] [address] [place], [address] ThyroxineOrdered By: Pineda rhodes on 03-20-2025 T4 [Mass/Vol] 6.6 ug/dL 4.8-13.9 [facility] Brain/Head without Contrasto n 03-18-2025 Brain/Head without Contrast Normal [facility] Emergency Department Summary on 03-18-2025 Emergency Department Summary Normal [facility] Anion gap in Serum or Plasma Ordered By: Pineda Morrison on 03-13-2025 Anion gap [Moles/Vol] 12 mmol/L 5-15 [facility] BUN/creatinine ratioOrdered By: Pineda Morrison on 03-13-2025 Urea nitrogen/Creatinine [Mass ratio] 30.1 mg/mg High 10-20 [facility] Bilirubin, totalOrdered By: Pineda Morrison on 03-13-2025 Bilirubin [Mass/Vol] 0.55 mg/dL 0.00-1.30 [facility] CBC-Complete Blood Cnt No Di ffon 03-13-2025 Erythrocyte distribution width (RBC) [Ratio] 14.7 % High 11.6-14.6 [facility] Comment on above: Order Comment: 204 Performed By: #### L 500.4100, L500.4050, L100.0500 ####[facility] [address] [place], [address] Hematocrit (Bld) [Volume fraction] 28.8 % Low 37-47 [facility] Comment on above: Order Comment: 204 Performed By: #### L 500.4100, L500.4050, L100.0500 ####[facility] [address] [place], [address] Hemoglobin (Bld) [Mass/Vol] 10.4 g/dL Low 12.0-15.0 [facility] Comment on above: Order Comment: 204 Performed By: #### L 500.4100, L500.4050, L100.0500 ####[facility] [address] [place], [address] MCH (RBC) [Entitic mass] 32.4 pg High 27.0-32.0 [facility] Comment on above: Order Comment: 204 Performed By: #### L 500.4100, L500.4050, L100.0500 ####[facility] [address] [place], [address] MCHC (RBC) [Mass/Vol] 36.1 g/dL High 32-36 [facility] Comment on above: Order Comment: 204 Performed By: #### L 500.4100, L500.4050, L100.0500 ####[facility] [address] [place], [address] MCV (RBC) [Entitic vol] 89.7 fL Normal 81-99 [facility] Comment on above: Order Comment: 204 Performed By: #### L 500.4100, L500.4050, L100.0500 ####[facility] [address] [place], [address] Platelet mean volume (Bld) [Entitic vol] 9.4 fL Normal 6.2-12.0 [facility] Comment on above: Order Comment: 204 Performed By: #### L 500.4100, L500.4050, L100.0500 ####[facility] [address] [place], [address] Platelets (Bld) [#/Vol] 240 10*3/uL Normal 150-450 [facility] Comment on above: Order Comment: 204 Performed By: #### L 500.4100, L500.4050, L100.0500 ####[facility] [address] [place], [address] RBC (Bld) [#/Vol] 3.21 10*6/uL Low 4.2-5.4 [facility] Comment on above: Order Comment: 204 Performed By: #### L 500.4100, L500.4050, L100.0500 ####[facility] [address] [place], [address] RDW SD 47.8 fl High 35.1-43.9 [facility] Comment on above: Order Comment: 204 Performed By: #### L 500.4100, L500.4050, L100.0500 ####[facility] [address] [place], [address] WBC (Bld) [#/Vol] 6.3 10*3/uL Normal 4.4-11.0 [facility] Comment on above: Order Comment: 204 Performed By: #### L 500.4100, L500.4050, L100.0500 ####[facility] [address] [place], [address] Calculated very low density lipoprotein (VLDL) cholesterol measurementOrdered By: Pineda Morrison on 03-13-2025 Calculated very low density lipoprotein (VLDL) cholesterol measurement 20 mg/dL 5-40 [facility] Carbon dioxide, total [Moles /volume] in Central venous bloodOrdered By: Pineda Morrison on 03-13-2025 CO2 [Moles/Vol] 21.2 mmol/L 21.0-32.0 [facility] Chloride assayOrdered By: Jacky Morrison on 03-13-2025 Chloride [Moles/Vol] 99 mmol/L 98-108 [facility] Comprehensive Metabolic Prof ilon 03-13-2025 Albumin [Mass/Vol] 3.1 g/dL Low 3.4-4.8 [facility] Comment on above: Order Comment: 204 Performed By: #### L 500.4100, L500.4050, L100.0500 ####[facility] [address] [place], [address] Albumin/Globulin [Mass ratio] 1.0 {ratio} Normal 0.9-2.4 [facility] Comment on above: Order Comment: 204 Performed By: #### L 500.4100, L500.4050, L100.0500 ####[facility] [address] [place], [address] ALK PHOS 130 U/L High 35-104 [facility] Comment on above: Order Comment: 204 Performed By: #### L 500.4100, L500.4050, L100.0500 ####[facility] [address] [place], [address] ALT [Catalytic activity/Vol] 6 U/L Normal <=34 [facility] Comment on above: Order Comment: 204 Performed By: #### L 500.4100, L500.4050, L100.0500 ####[facility] [address] [place], [address] AST [Catalytic activity/Vol] 29 U/L Normal <=31 [facility] Comment on above: Order Comment: 204 Performed By: #### L 500.4100, L500.4050, L100.0500 ####[facility] [address] [place], [address] Bilirubin [Mass/Vol] 0.55 mg/dL Normal 0.00-1.30 [facility] Comment on above: Order Comment: 204 Performed By: #### L 500.4100, L500.4050, L100.0500 ####[facility] [address] [place], [address] BUN/CRE 30.1 RATIO High 10-20 [facility] Comment on above: Order Comment: 204 Performed By: #### L 500.4100, L500.4050, L100.0500 ####[facility] [address] [place], [address] Calcium [Mass/Vol] 9.9 mg/dL Normal 7.6-11.0 [facility] Comment on above: Order Comment: 204 Performed By: #### L 500.4100, L500.4050, L100.0500 ####[facility] [address] [place], [address] Chloride [Moles/Vol] 99 mmol/L Normal 98-108 [facility] Comment on above: Order Comment: 204 Performed By: #### L 500.4100, L500.4050, L100.0500 ####[facility] [address] [place], [address] CO2 [Moles/Vol] 21.2 mmol/L Normal 21.0-32.0 [facility] Comment on above: Order Comment: 204 Performed By: #### L 500.4100, L500.4050, L100.0500 ####[facility] [address] [place], [address] Creatinine [Mass/Vol] 0.49 mg/dL Low 0.70-1.20 [facility] Comment on above: Order Comment: 204 Performed By: #### L 500.4100, L500.4050, L100.0500 ####[facility] [address] [place], [address] GAP 12 Normal 5-15 [facility] Comment on above: Order Comment: 204 Performed By: #### L 500.4100, L500.4050, L100.0500 ####[facility] [address] [place], [address] GFR/1.73 sq M.predicted among non-blacks MDRD (S/P/Bld) [Vol rate/Area] 97 mL/min/{1.73_m2} Normal >60 [facility] Comment on above: Order Comment: 204 Result Comment: mL/m in/1.73m2 CKD-EPI Creatinine Equation (2020) Performed By: #### L 500.4100, L500.4050, L100.0500 ####[facility] [address] [place], [address] Globulin (S) [Mass/Vol] 3.2 g/dL Normal 2.2-4.2 [facility] Comment on above: Order Comment: 204 Performed By: #### L 500.4100, L500.4050, L100.0500 ####[facility] [address] [place], [address] Glucose [Mass/Vol] 74 mg/dL Normal 70-99 [facility] Comment on above: Order Comment: 204 Performed By: #### L 500.4100, L500.4050, L100.0500 ####[facility] [address] [place], [address] Potassium [Moles/Vol] 4.1 mmol/L Normal 3.3-5.1 [facility] Comment on above: Order Comment: 204 Performed By: #### L 500.4100, L500.4050, L100.0500 ####[facility] [address] [place], [address] Sodium [Moles/Vol] 132 mmol/L Low 133-145 [facility] Comment on above: Order Comment: 204 Performed By: #### L 500.4100, L500.4050, L100.0500 ####[facility] [address] [place], [address] T PROT 6.3 g/dL Normal 5.9-8.4 [facility] Comment on above: Order Comment: 204 Performed By: #### L 500.4100, L500.4050, L100.0500 ####[facility] [address] [place], [address] Urea nitrogen [Mass/Vol] 15 mg/dL Normal 4-19 [facility] Comment on above: Order Comment: 204 Performed By: #### L 500.4100, L500.4050, L100.0500 ####[facility] [address] [place], [address] Erythrocyte distribution wid th ratioOrdered By: Pineda Morrison on 03-13-2025 Erythrocyte distribution width (RBC) [Ratio] 14.7 % High 11.6-14.6 [facility] Erythrocyte distribution wid th standard deviationOrdered By: Pineda Morrison on 03-13-2025 Erythrocyte distribution width (RBC) [Ratio] 47.8 fl High 35.1-43.9 [facility] Glomerular filtration rate ( GFR) estimation/1.73 sq m using serum, plasma, or whole bOrdered By: Pineda Morrison on 03-13-2025 GFR/1.73 sq M.predicted among non-blacks MDRD (S/P/Bld) [Vol rate/Area] 97 mL/min/{1.73_m2} >60 [facility] Comment on above: mL/min/1.73m2 CKD-EP I Creatinine Equation (2020) Hematocrit Auto (Bld) [Volum e fraction]Ordered By: Pineda Morrison on 03-13-2025 Hematocrit (Bld) [Volume fraction] 28.8 % Low 37-47 [facility] Hemoglobin measurementOrdere d By: Pineda Morrison on 03-13-2025 Hemoglobin (Bld) [Mass/Vol] 10.4 g/dL Low 12.0-15.0 [facility] LDL calc ser/plasOrdered By: Pineda Morrison on 03-13-2025 Cholesterol in LDL [Mass/Vol] 70 mg/dL [facility] Comment on above: Qltbhetihk=958-056 m g/dL & Higher Whox=386 mg/dL or greater Laboratory - Chemistry and C hemistry - challengeOrdered By: Pineda Morrison on 03-13-2025 AST [Catalytic activity/Vol] 29 U/L <32 [facility] Lipid Profileon 03-13-2025 CHOL:HDL 3.18 Normal [facility] Comment on above: Order Comment: 204 Performed By: #### L 500.4100, L500.4050, L100.0500 ####[facility] [address] [place], [place], [id number] Cholesterol [Mass/Vol] 132 mg/dL Normal <=200 [facility] Comment on above: Order Comment: 204 Result Comment: Chol esterol level, Desirable <200 mg/dLBorderline high cholesterol 200-239 mg/dLHigh cholesterol >=240 mg/dLRecommendations of the NCEP Adult Treatment Panel for thefollowing risk-cutoff thresholds for the [place] Americanpopulation. Performed By: #### L 500.4100, L500.4050, L100.0500 ####[facility] [address] [place], [address] Cholesterol in HDL [Mass/Vol] 42 mg/dL Normal [facility] Comment on above: Order Comment: 204 Result Comment: Sydni onal Cholesterol Education Program (NCEP) guidelines:<40 mg/dL: Low HDL-cholesterol (major risk factor for CHD)>= 60 mg/dL: High HDL-cholesterol (negative risk factor forCHD)HDL-cholesterol is affected by a number of factors, e.g.smoking, exercise, hormones, sex and age. Performed By: #### L 500.4100, L500.4050, L100.0500 ####[facility] [address] [place], [address] Cholesterol in LDL [Mass/Vol] 70 mg/dL Normal [facility] Comment on above: Order Comment: 204 Result Comment: Bord uasjzd=931-722 mg/dL Higher Bctj=009 mg/dL or greater Performed By: #### L 500.4100, L500.4050, L100.0500 ####[facility] [address] [place], [address] Cholesterol in VLDL [Mass/Vol] 20 mg/dL Normal 5-40 [facility] Comment on above: Order Comment: 204 Performed By: #### L 500.4100, L500.4050, L100.0500 ####[facility] [address] [place], [address] Triglyceride [Mass/Vol] 101 mg/dL Normal [facility] Comment on above: Order Comment: 204 Result Comment: The drugs N-Acetylcysteine and Metamizole may falselydepress this assay.Normal range: <150 mg/dLBorderline High: 150-199 mg/dLHigh: 200-499 mg/dLVery High: >500 mg/dL Performed By: #### L 500.4100, L500.4050, L100.0500 ####[facility] [address] [place], [place], [id number] MCV (mean corpuscular volume ) determinationOrdered By: Pineda Morrison on 03-13-2025 MCV (RBC) [Entitic vol] 89.7 fL 81-99 [facility] Mean corpuscular hemoglobin (MCH) determinationOrdered By: Pineda Morrison on 03-13-2025 MCH (RBC) [Entitic mass] 32.4 pg High 27.0-32.0 [facility] Mean corpuscular hemoglobin concentration (MCHC) determinationOrdered By: Pineda Morrison on 03-13-2025 MCHC (RBC) [Mass/Vol] 36.1 g/dL High 32-36 [facility] Mean platelet volume determi nationOrdered By: Pineda Morrison on 03-13-2025 Platelet mean volume (Bld) [Entitic vol] 9.4 fL 6.2-12.0 [facility] Platelet countOrdered By: Jacky Morrison on 03-13-2025 Platelets (Bld) [#/Vol] 240 10*3/uL 150-450 [facility] Potassium measurement (mass/ volume)Ordered By: Pineda Morrison on 03-13-2025 Potassium (Unsp spec) [Mass/Vol] 4.1 mmol/L 3.3-5.1 [facility] RBC Auto (Bld) [#/Vol]Ordere d By: Pineda Morrison on 03-13-2025 RBC (Bld) [#/Vol] 3.21 10*6/uL Low 4.2-5.4 [facility] Screening total cholesterol/ high density lipoprotein (HDL) cholesterol ratioOrdered By: Pineda Morrison on 03-13-2025 Cholesterol.total/Cholest kin in HDL [Mass ratio] 3.18 {ratio} [facility] Serum creatinine measurement (mass/volume)Ordered By: Pineda Morrison on 03-13-2025 Creatinine [Mass/Vol] 0.49 mg/dL Low 0.70-1.20 [facility] Serum globulin measurementOr dered By: Pineda Morrison on 03-13-2025 Globulin (S) [Mass/Vol] 3.2 g/dL 2.2-4.2 [facility] Serum glucose measurement (m ass/volume)Ordered By: Pineda Morrison on 03-13-2025 Glucose [Mass/Vol] 74 mg/dL 70-99 [facility] Serum or plasma alanine cornejo otransferase (ALT) measurementOrdered By: Pineda Morrison on 03-13-2025 ALT [Catalytic activity/Vol] 6 U/L <35 [facility] Serum or plasma albumin sabino urement (mass/volume)Ordered By: Pineda Morrison on 03-13-2025 Albumin [Mass/Vol] 3.1 g/dL Low 3.4-4.8 [facility] Serum or plasma albumin/glob ulin mass ratioOrdered By: Pineda Morrison on 03-13-2025 Albumin/Globulin [Mass ratio] 1.0 {ratio} 0.9-2.4 [facility] Serum or plasma alkaline shaista sphatase measurementOrdered By: Pineda Morrison on 03-13-2025 ALP [Catalytic activity/Vol] 130 U/L High 35-104 [facility] Serum or plasma calcium sabino urement (mass/volume)Ordered By: Pineda Morrison on 03-13-2025 Calcium [Mass/Vol] 9.9 mg/dL 7.6-11.0 [facility] Serum or plasma cholesterol in HDL measurement (mass/volume)Ordered By: Pineda Morrison on 03-13-2025 Cholesterol in HDL [Mass/Vol] 42 mg/dL >40 [facility] Comment on above: National Cholesterol Education Program (NCEP) guidelines:<40 mg/dL: Low HDL-cholesterol (major risk factor for CHD)>= 60 mg/dL: High HDL-cholesterol (negative risk factor for CHD)HDL-cholesterol is affected by a number of factors, e.g. smoking, exercise, hormones, sex and age. Serum or plasma cholesterol measurement (mass/volume)Ordered By: Pineda Morrison on 03-13-2025 Cholesterol [Mass/Vol] 132 mg/dL <201 [facility] Comment on above: Cholesterol level, D esirable <200 mg/dLBorderline high cholesterol 200-239 mg/dLHigh cholesterol >=240 mg/dLRecommendations of the NCEP Adult Treatment Panel for the following risk-cutoff thresholds for the [place] population. Serum or plasma urea nitroge n measurement (mass/volume)Ordered By: Pineda Morrison on 03-13-2025 Urea nitrogen [Mass/Vol] 15 mg/dL 4- [facility] Sodium levelOrdered By: Jeffrey Morrison on 03-13-2025 Sodium [Moles/Vol] 132 mmol/L Low 133-145 [facility] Total proteinOrdered By: Marshal Morrison on 03-13-2025 Protein [Mass/Vol] 6.3 g/dL 5.9-8.4 [facility] Triglycerides measurementOrd ered By: Pineda Morrison on 03-13-2025 Triglyceride [Mass/Vol] 101 mg/dL <199 [facility] Comment on above: The drugs N-Acetylcy steine and Metamizole may falsely depress this assay. Normal range: <150 mg/dLBorderline High: 150-199 mg/dLHigh: 200-499 mg/dLVery High: >500 mg/dL White blood cell (WBC) count Ordered By: Pineda Morrsion on 03-13-2025 WBC (Bld) [#/Vol] 6.3 10*3/uL 4.4-11.0 [facility] Anion gap in Serum or Plasma Ordered By: Katie Bah on 03-05-2025 Anion gap [Moles/Vol] 11 mmol/L 01-04 [facility] BUN/creatinine ratioOrdered By: Katie Bah on 03-05-2025 Urea nitrogen/Creatinine [Mass ratio] 31.2 mg/mg High 06-11 [facility] Basic Metabolic Profile (BMP )on 03-05-2025 BUN/CRE 31.2 RATIO High 06-11 [facility] Comment on above: Performed By: #### L 500.2500, L501.5200, L100.0600 ####[facility] [address] [place], [place], [id number] Calcium [Mass/Vol] 9.2 mg/dL Normal 7.6-11.0 [facility] Comment on above: Performed By: #### L 500.2500, L501.5200, L100.0600 ####[facility] [address] [place], [address] Chloride [Moles/Vol] 102 mmol/L Normal 98-108 [facility] Comment on above: Performed By: #### L 500.2500, L501.5200, L100.0600 ####[facility] [address] [place], [address] CO2 [Moles/Vol] 21.2 mmol/L Normal 21.0-32.0 [facility] Comment on above: Performed By: #### L 500.2500, L501.5200, L100.0600 ####[facility] [address] [place], [address] Creatinine [Mass/Vol] 0.54 mg/dL Low 0.70-1.20 [facility] Comment on above: Performed By: #### L 500.2500, L501.5200, L100.0600 ####[facility] [address] [place], [address] ECRCL 50.99 ml/min Normal 50-250 [facility] Comment on above: Performed By: #### L 500.2500, L501.5200, L100.0600 ####[facility] [address] [place], [address] GAP 11 Normal 5-15 [facility] Comment on above: Performed By: #### L 500.2500, L501.5200, L100.0600 ####[facility] [address] [place], [address] GFR/1.73 sq M.predicted among non-blacks MDRD (S/P/Bld) [Vol rate/Area] 95 mL/min/{1.73_m2} Normal >60 [facility] Comment on above: Result Comment: mL/m in/1.73m2 CKD-EPI Creatinine Equation (2020) Performed By: #### L 500.2500, L501.5200, L100.0600 ####[facility] [address] [place], [address] Glucose [Mass/Vol] 90 mg/dL Normal 70-99 [facility] Comment on above: Performed By: #### L 500.2500, L501.5200, L100.0600 ####[facility] [address] [place], [address] Potassium [Moles/Vol] 4.1 mmol/L Normal 3.3-5.1 [facility] Comment on above: Performed By: #### L 500.2500, L501.5200, L100.0600 ####[facility] [address] [place], [address] Sodium [Moles/Vol] 134 mmol/L Normal 133-145 [facility] Comment on above: Performed By: #### L 500.2500, L501.5200, L100.0600 ####[facility] [address] [place], [address] Urea nitrogen [Mass/Vol] 17 mg/dL Normal 4-19 [facility] Comment on above: Performed By: #### L 500.2500, L501.5200, L100.0600 ####[facility] [address] [place], [address] Carbon dioxide, total [Moles /volume] in Central venous bloodOrdered By: Katie Bah on 03-05-2025 CO2 [Moles/Vol] 21.2 mmol/L 21.0-32.0 [facility] Chloride assayOrdered By: Shahida Bah on 03-05-2025 Chloride [Moles/Vol] 102 mmol/L 98-108 [facility] Glomerular filtration rate ( GFR) estimation/1.73 sq m using serum, plasma, or whole bOrdered By: Katie Bah on 03-05-2025 GFR/1.73 sq M.predicted among non-blacks MDRD (S/P/Bld) [Vol rate/Area] 95 mL/min/{1.73_m2} >60 [facility] Comment on above: mL/min/1.73m2 CKD-EP I Creatinine Equation (2020) HH, Hemoglobin AND Hematocri ton 03-05-2025 Hematocrit (Bld) [Volume fraction] 27.0 % Low 37-47 [facility] Comment on above: Performed By: #### L 500.2500, L501.5200, L100.0600 ####[facility] [address] [place], [address] Hemoglobin (Bld) [Mass/Vol] 9.5 g/dL Low 12.0-15.0 [facility] Comment on above: Performed By: #### L 500.2500, L501.5200, L100.0600 ####[facility] [address] [place], [address] Hematocrit Auto (Bld) [Volum e fraction]Ordered By: Katie Bah on 03-05-2025 Hematocrit (Bld) [Volume fraction] 27.0 % Low 37-47 [facility] Hemoglobin measurementOrdere d By: Katie Bah on 03-05-2025 Hemoglobin (Bld) [Mass/Vol] 9.5 g/dL Low 12.0-15.0 [facility] Magnesiumon 03-05-2025 Magnesium [Mass/Vol] 1.9 mg/dL Normal 1.5-2.2 [facility] Comment on above: Performed By: #### L 500.2500, L501.5200, L100.0600 ####[facility] [address] [place], [address] Magnesium measurement (mass/ volume)Ordered By: Katie Bah on 03-05-2025 Magnesium (Unsp spec) [Mass/Vol] 1.9 mg/dL 1.5-2.2 [facility] Potassium measurement (mass/ volume)Ordered By: Katie Bah on 03-05-2025 Potassium (Unsp spec) [Mass/Vol] 4.1 mmol/L 3.3-5.1 [facility] Serum creatinine measurement (mass/volume)Ordered By: Katie Kimjaquan on 03-05-2025 Creatinine [Mass/Vol] 0.54 mg/dL Low 0.70-1.20 [facility] Serum glucose measurement (m ass/volume)Ordered By: Katie Kimjaquan on 03-05-2025 Glucose [Mass/Vol] 90 mg/dL 70-99 [facility] Serum or plasma calcium sabino urement (mass/volume)Ordered By: Katie Olvin on 03-05-2025 Calcium [Mass/Vol] 9.2 mg/dL 7.6-11.0 [facility] Serum or plasma urea nitroge n measurement (mass/volume)Ordered By: Katie Olvin on 03-05-2025 Urea nitrogen [Mass/Vol] 17 mg/dL 4-19 [facility] Sodium levelOrdered By: Katie Olvin on 03-05-2025 Sodium [Moles/Vol] 134 mmol/L 133-145 [facility] Bedside Glucoseon 03-03-2025 FINGERSTICK GLU 175 mg/dL High 74-106 [facility] Comment on above: Result Comment: MARINA GEMENT OF PATIENT CARE PER NURSING PROTOCOL Performed By: #### L 501.080 ####[facility] [address] [place], [place], [address] FINGERSTICK GLU 125 mg/dL High 74-106 [facility] Comment on above: Result Comment: MARINA GEMENT OF PATIENT CARE PER NURSING PROTOCOL Performed By: #### L 501.080 ####[facility] [address] [place], [place], [address] [facility] de[facility]dered By: Katie Olvin on 03-03-2025 Glucose [Mass/Vol] 175 mg/dL High 74-106 [facility] Comment on above: MANAGEMENT OF PATIEN T CARE PER NURSING PROTOCOL Bedside Glucoseon 03-02-2025 FINGERSTICK GLU 133 mg/dL High 74-106 [facility] Comment on above: Result Comment: MARINA GEMENT OF PATIENT CARE PER NURSING PROTOCOL Performed By: #### L 501.080 ####[facility] [address] [place], [place], [address] FINGERSTICK GLU 119 mg/dL High 74-106 [facility] Comment on above: Result Comment: MARINA GEMENT OF PATIENT CARE PER NURSING PROTOCOL Performed By: #### L 501.080 ####[facility] [address] [place], [address] Femur Min 2 Viewson 03-02-20 25 Femur Min 2 Views Normal [facility] Pelvis 1 or 2 Viewson 2024 Pelvis 1 or 2 Views Normal [facility] Bedside Glucoseon 03-01-2025 FINGERSTICK GLU 157 mg/dL High 74-106 [facility] Comment on above: Result Comment: MARINA GEMENT OF PATIENT CARE PER NURSING PROTOCOL Performed By: #### L 501.080 ####[facility] [address] [place], [address] FINGERSTICK GLU 115 mg/dL High 74-106 [facility] Comment on above: Result Comment: MARINA GEMENT OF PATIENT CARE PER NURSING PROTOCOL Performed By: #### L 501.080 ####[facility] [address] [place], [address] Venous Duplex US, Unilateral on 03-01-2025 Venous Duplex US, Unilateral Normal [facility] Venous duplex ultrasound rep ortOrdered By: Baldev Kaba on 03-01-2025 US Vein [facility] [address] [place] [address] Venous Duplex US, Unilateral 03/01/25 1257 MR#: [id number] Acct: [id number] Name: SHASHI OSWALD Rep #:[id number] : 1945 79 From: Baldev Guajardo Attending [...] Roman Fish, ISAURO 03/01/25 1607 Date _ Baledv Kaba MD CC: Dr. Katie Bah DO; Dr. Candelario Santana MD ~ Date Dictated: 03/01/25 1257 Date Transcribed: 03/01/251606 Candy Dipper Hand: Signed [facility] Work Phone: Bedside Glucoseon 02-28-2025 FINGERSTICK GLU 106 mg/dL Normal 74-106 [facility] Comment on above: Result Comment: MARINA FERNANDEZ OF PATIENT CARE PER NURSING PROTOCOL Performed By: #### L 501.080 ####[facility] [address] [place], [address] Bedside Glucoseon 02-27-2025 FINGERSTICK GLU 112 mg/dL High 74-106 [facility] Comment on above: Result Comment: MARINA LARESENT OF PATIENT CARE PER NURSING PROTOCOL Performed By: #### L 501.080 ####[facility] [address] [place], [address] FINGERSTICK GLU 131 mg/dL High 74-106 [facility] Comment on above: Result Comment: MARINA GEMENT OF PATIENT CARE PER NURSING PROTOCOL Performed By: #### L 501.080 ####[facility] [address] [place], [address] Echocardiogram study reportO rdered By: Steve Werner on 02-27-2025 Study report [facility] [address] [place] [address] Echo Complete 02/27/25 1028 MR#: [id number] Acct: [id number] Name: SHASHI OSWALD Rep #:[id number] : 1945 79 From: Steve Guajardo Attending [...] Date Dictated: 02/27/25 1028 Date Transcribed: 02/27/251448 Candy Dipper Hand: Signed [facility] Work Phone: Basic Metabolic Profile (BMP )on 02-26-2025 BUN/CRE 23.8 RATIO High 10-20 [facility] Comment on above: Performed By: #### L 100.0600, L500.2500, L503.0106 ####[facility] [address] [place], [address] Calcium [Mass/Vol] 8.6 mg/dL Normal 7.6-11.0 [facility] Comment on above: Performed By: #### L 100.0600, L500.2500, L503.0106 ####[facility] [address] [place], [address] Chloride [Moles/Vol] 101 mmol/L Normal 98-108 [facility] Comment on above: Performed By: #### L 100.0600, L500.2500, L503.0106 ####[facility] [address] [place], [address] CO2 [Moles/Vol] 25.0 mmol/L Normal 21.0-32.0 [facility] Comment on above: Performed By: #### L 100.0600, L500.2500, L503.0106 ####[facility] [address] [place], [address] Creatinine [Mass/Vol] 0.52 mg/dL Low 0.70-1.20 [facility] Comment on above: Performed By: #### L 100.0600, L500.2500, L503.0106 ####[facility] [address] [place], [address] ECRCL 51.41 ml/min Normal 50-250 [facility] Comment on above: Performed By: #### L 100.0600, L500.2500, L503.0106 ####[facility] [address] [place], [address] GAP 7 Normal 5-15 [facility] Comment on above: Performed By: #### L 100.0600, L500.2500, L503.0106 ####[facility] [address] [place], [address] GFR/1.73 sq M.predicted among non-blacks MDRD (S/P/Bld) [Vol rate/Area] 96 mL/min/{1.73_m2} Normal >60 [facility] Comment on above: Result Comment: mL/m in/1.73m2 CKD-EPI Creatinine Equation (2020) Performed By: #### L 100.0600, L500.2500, L503.0106 ####[facility] [address] [place], [address] Glucose [Mass/Vol] 126 mg/dL High 70-99 [facility] Comment on above: Performed By: #### L 100.0600, L500.2500, L503.0106 ####[facility] [address] [place], [address] Potassium [Moles/Vol] 3.9 mmol/L Normal 3.3-5.1 [facility] Comment on above: Performed By: #### L 100.0600, L500.2500, L503.0106 ####[facility] [address] [place], [address] Sodium [Moles/Vol] 133 mmol/L Normal 133-145 [facility] Comment on above: Performed By: #### L 100.0600, L500.2500, L503.0106 ####[facility] [address] [place], [address] Urea nitrogen [Mass/Vol] 12 mg/dL Normal 4-19 [facility] Comment on above: Performed By: #### L 100.0600, L500.2500, L503.0106 ####[facility] [address] [place], [address] Bedside Glucoseon 02-26-2025 FINGERSTICK GLU 142 mg/dL High 74-106 [facility] Comment on above: Result Comment: MARINA GEMENT OF PATIENT CARE PER NURSING PROTOCOL Performed By: #### L 501.080 ####[facility] [address] [place], [address] FINGERSTICK GLU 121 mg/dL High 74-106 [facility] Comment on above: Result Comment: MARINA GEMENT OF PATIENT CARE PER NURSING PROTOCOL Performed By: #### L 501.080 ####[facility] [address] [place], [address] Echo Completeon 02-26-2025 Echo Complete Normal [facility] Electrocardiogram reportOrde red By: Steve Werner on 02-26-2025 EKG study [facility] Cardi[facility] Services [address] [place] [address] 12 Lead EKG 02/23/25 1235 MR#: [id number] Acct: [id number] Name: SHASHI OSWALD Rep #:[id number] : 1945 79 From: Steve Werner MD [...] needs review Confirmed by STEVE WERNER MD ([id number]), food editor CHIOMA ARRIAZA ([id number]) on 02/26/2025 1:19:46 PM Referred By: Katie Bah Confirmed By: STEVE WERNER MD 02/26/25 1319 Date _ Steve Werner MD CC: Dr. Katie Bah, DO; Dr. Candelario Santana MD ~ Signed [facility] Work Phone: HH, Hemoglobin AND Hematocri ton 02-26-2025 Hematocrit (Bld) [Volume fraction] 24.4 % Low 37-47 [facility] Comment on above: Performed By: #### L 100.0600, L500.2500, L503.0106 ####[facility] [address] [place], [address] Hemoglobin (Bld) [Mass/Vol] 8.4 g/dL Low 12.0-15.0 [facility] Comment on above: Performed By: #### L 100.0600, L500.2500, L503.0106 ####[facility] [address] [place], [address] Vitamin B12on 02-26-2025 Cobalamin (Vitamin B12) [Mass/Vol] 366 pg/mL Normal 180-914 [facility] Comment on above: Performed By: #### L 100.0600, L500.2500, L503.0106 ####[facility] [address] [place], [address] Vitamin B12 ser/plasOrdered By: Katie Bah on 02-26-2025 Cobalamin (Vitamin B12) [Mass/Vol] 366 pg/mL 180-914 [facility] Bedside Glucoseon 02-25-2025 FINGERSTICK GLU 184 mg/dL High 74-106 [facility] Comment on above: Result Comment: MARINA GEMENT OF PATIENT CARE PER NURSING PROTOCOL Performed By: #### L 501.080 ####[facility] [address] [place], [address] FINGERSTICK GLU 121 mg/dL High [address] [place] [address] Comment on above: Result Comment: MARINA GEMENT OF PATIENT CARE PER NURSING PROTOCOL Performed By: #### L 501.080 ####[facility] [address] [place], [address] FINGERSTICK GLU 214 mg/dL High -106 [facility] Comment on above: Result Comment: MARINA GEMENT OF PATIENT CARE PER NURSING PROTOCOL Performed By: #### L 501.080 ####[facility] [address] [place], [address] FINGERSTICK GLU 141 mg/dL High -[address] [place] [address] Comment on above: Result Comment: MARINA GEMENT OF PATIENT CARE PER NURSING PROTOCOL Performed By: #### L 501.080 ####[facility] [address] [place], [address] Urine Cultureon 02-25-2025 URC Normal [facility] Comment on above: Performed By: #### L 400.0001, M100.2200 ####[facility] [address] [place], [address] Bedside Glucoseon 02-24-2025 FINGERSTICK GLU 199 mg/dL High -[address] [place] [address] Comment on above: Result Comment: MARINA GEMENT OF PATIENT CARE PER NURSING PROTOCOL Performed By: #### L 501.080 ####[facility] [address] [place], [address] FINGERSTICK GLU 152 mg/dL High [address] [place] [address] Comment on above: Result Comment: MARINA GEMENT OF PATIENT CARE PER NURSING PROTOCOL Performed By: #### L 501.080 ####[facility] [address] [place], [address] FINGERSTICK GLU 196 mg/dL High 74-106 [facility] Comment on above: Result Comment: MARINA GEMENT OF PATIENT CARE PER NURSING PROTOCOL Performed By: #### L 501.080 ####[facility] [address] [place], [address] FINGERSTICK GLU 147 mg/dL High 74-106 [facility] Comment on above: Result Comment: MARINA GEMENT OF PATIENT CARE PER NURSING PROTOCOL Performed By: #### L 501.080 ####[facility] [address] [place], [address] 12 Lead EKGon 02-23-2025 12 Lead EKG Normal [facility] Bedside Glucoseon 02-23-2025 FINGERSTICK GLU 162 mg/dL High -106 [facility] Comment on above: Result Comment: MARINA GEMENT OF PATIENT CARE PER NURSING PROTOCOL Performed By: #### L 501.080 ####[facility] [address] [place], [address] FINGERSTICK GLU 183 mg/dL High 74-106 [facility] Comment on above: Result Comment: MARINA GEMENT OF PATIENT CARE PER NURSING PROTOCOL Performed By: #### L 501.080 ####[facility] [address] [place], [address] FINGERSTICK GLU 185 mg/dL High 74-106 [facility] Comment on above: Result Comment: MARINA GEMENT OF PATIENT CARE PER NURSING PROTOCOL Performed By: #### L 501.080 ####[facility] [address] [place], [address] FINGERSTICK GLU 153 mg/dL High 74-106 [facility] Comment on above: Result Comment: MARINA GEMENT OF PATIENT CARE PER NURSING PROTOCOL Performed By: #### L 501.080 ####[facility] [address] [place], [place], [address] Bilirubin Test strip Ql (U)O rdered By: Katie Kimjaquan on 02-23-2025 Bilirubin Ql (U) Negative Negative [facility] Ketones Test strip Ql (U)Ord ered By: Katie Kimjaquan on 02-23-2025 Ketones Ql (U) Negative Negative [facility] Microscopic analysis of urin e for red blood cells (RBC)Ordered By: Katie Olvin on 02-23-2025 Microscopic analysis of urine for red blood cells (RBC) 0 SEEN /hpf 0-5 [facility] Mucus LM Ql (Urine sed)Order ed By: Katie Olvin on 02-23-2025 Mucus Ql (Urine sed) 0 SEEN /hpf [facility] Nitrite Test strip Ql (U)Ord ered By: Katie Kimjaquan on 02-23-2025 Nitrite Ql (U) Negative Negative [facility] Protein Test strip Ql (U)Ord ered By: Katie Olvin on 02-23-2025 Protein Ql (U) 30 mg/dl High Negative [facility] Squamous epithelial cells de tection in urine sediment by light microscopyOrdered By: Katie Olvin on 02-23-2025 Epithelial cells.squamous LM Ql (Urine sed) 0 SEEN /hpf 5-10 [facility] Urinalysis, Completeon 02-23 BACTERIA 1+ /hpf Normal None Seen [facility] Comment on above: Order Comment: BLADD ER TAP Performed By: #### L 400.0001, ####[facility] [address] [place], [place], [address] WBC 0-5 SEEN Normal 0-5 [facility] Comment on above: Order Comment: BLADD ER TAP Performed By: #### L 400.0001, .2199 ####[facility] [address] [place], [place], [address] EPI,SQUAMOUS 0 SEEN Normal 5-10 [facility] Comment on above: Order Comment: BLADD ER TAP Performed By: #### L 400.0001, ####[facility] [address] [place], [address] Mucus Ql (Urine sed) 0 SEEN Normal [facility] Comment on above: Order Comment: BLADD ER TAP Performed By: #### L 400.0001, M100.2200 ####[facility] [address] [place], [address] RBC 0 SEEN Normal 0-5 [facility] Comment on above: Order Comment: BLADD ER TAP Performed By: #### L 400.0001, M100.2200 ####[facility] [address] [place], [address] RBC 0-5 SEEN Normal 0-5 [facility] Comment on above: Order Comment: CLEAN CATCH Performed By: #### L 400.0001 ####[facility] [address] [place], [address] WBC 25-50 SEEN Normal 0-5 [facility] Comment on above: Order Comment: CLEAN CATCH Performed By: #### L 400.0001 ####[facility] [address] [place], [address] BACTERIA 3+ /hpf Normal None Seen [facility] Comment on above: Order Comment: CLEAN CATCH Performed By: #### L 400.0001 ####[facility] [address] [place], [address] EPI,SQUAMOUS 0-5 SEEN Normal 5-10 [facility] Comment on above: Order Comment: CLEAN CATCH Performed By: #### L 400.0001 ####[facility] [address] [place], [address] Urine clarityOrdered By: Joya Bah on 02-23-2025 Clarity (U) Clear Clear [facility] Urine color determinationOrd ered By: Katie Bah on 02-23-2025 Color (U) Yellow Yellow [facility] Urine cultureOrdered By: Joya Bah on 02-23-2025 Bacteria identified Cx Nom (U) Escherichia coli Abnormal [facility] Urine glucose detectionOrder ed By: Katie Kimjaquan on 02-23-2025 Glucose Ql (U) 50 mg/dl High Normal [facility] Urine leukocyte esterase det ection by dipstickOrdered By: Katie Olvin on 02-23-2025 Leukocyte esterase Test strip Ql (U) 100 /ul High Negative [facility] Urine pHOrdered By: Katie Radha hanna on 02-23-2025 pH (U) 7.0 [pH] 5.0 - 8.0 [facility] Urine sediment bacteria coun t by microscopy (number/high power field)Ordered By: Katie Olvin on 02-23-2025 Bacteria LM.HPF (Urine sed) [#/Area] 1 /[HPF] None Seen [facility] Urine specific gravity measu rementOrdered By: Katie Olvin on 02-23-2025 Specific gravity (U) [Rel density] 1.010 1.002-1.030 [facility] Urine urobilinogen measureme ntOrdered By: Katie Olvin on 02-23-2025 Urobilinogen Ql (U) Normal mg/dl Normal [facility] White blood cell countOrdere d By: Katie Olvin on 02-23-2025 White blood cell count 0-5 SEEN /hpf 0-5 [facility] Absolute lymphocyte countOrd ered By: Katie Olvin on 02-22-2025 Lymphocytes Auto (Unsp spec) [#/Vol] 1.94 10*3/uL 0.83-4.51 [facility] Absolute neutrophil countOrd ered By: Katie Bah on 02-22-2025 Neutrophils (Bld) [#/Vol] 5.3 10*3/uL 2.0-7.7 [facility] Automated lymphocyte count a s percentage of total leukocytesOrdered By: Katie Olvin on 02-22-2025 Lymphocytes/100 WBC Auto (Unsp spec) 23.7 % 19-41 [facility] Basophil percentageOrdered B y: Katie Olvin on 02-22-2025 Basophils/100 WBC (Bld) 0.4 % 0-1 [facility] Bedside Glucoseon 02-22-2025 FINGERSTICK GLU 182 mg/dL High 74-106 [facility] Comment on above: Result Comment: MARINA GEMENT OF PATIENT CARE PER NURSING PROTOCOL Performed By: #### L 501.080 ####[facility] [address] [place], [address] FINGERSTICK GLU 195 mg/dL High 74-106 [facility] Comment on above: Result Comment: MARINA GEMENT OF PATIENT CARE PER NURSING PROTOCOL Performed By: #### L 501.080 ####[facility] [address] [place], [address] FINGERSTICK GLU 254 mg/dL High 74-106 [facility] Comment on above: Result Comment: MARINA GEMENT OF PATIENT CARE PER NURSING PROTOCOL Performed By: #### L 501.080 ####[facility] [address] [place], [address] FINGERSTICK GLU 189 mg/dL High [facility]106 [facility] Comment on above: Result Comment: MARINA GEMENT OF PATIENT CARE PER NURSING PROTOCOL Performed By: #### L 501.080 ####[facility] [address] [place], [address] Bilirubin, totalOrdered By: Katie Bah on 02-22-2025 Bilirubin [Mass/Vol] 1.00 mg/dL 0.00-1.30 [facility] CBC W/Diff, Automatedon Absolute Lymph 1.94 X10 3/uL Normal 0.83-4.51 [facility] Comment on above: Performed By: #### L 501.2300, L501.5200, L100.0100, L500.4050 ####[facility] [address] [place], [address] Absolute Neut 5.3 X10 3/uL Normal 2.0-7.7 [facility] Comment on above: Performed By: #### L 501.2300, L501.5200, L100.0100, L500.4050 ####[facility] [address] [place], [address] Basophils/100 WBC (Bld) 0.4 % Normal 0-1 [facility] Comment on above: Performed By: #### L 501.2300, L501.5200, L100.0100, L500.4050 ####[facility] [address] [place], [address] Eosinophils/100 WBC (Bld) 3.0 % Normal 0-5 [facility] Comment on above: Performed By: #### L 501.2300, L501.5200, L100.0100, L500.4050 ####[facility] [address] [place], [address] Erythrocyte distribution width (RBC) [Ratio] 15.4 % High 11.6-14.6 [facility] Comment on above: Performed By: #### L 501.2300, L501.5200, L100.0100, L500.4050 ####[facility] [address] [place], [address] Hematocrit (Bld) [Volume fraction] 24.1 % Low 37-47 [facility] Comment on above: Performed By: #### L 501.2300, L501.5200, L100.0100, L500.4050 ####[facility] [address] [place], [address] Hemoglobin (Bld) [Mass/Vol] 8.5 g/dL Low 12.0-15.0 [facility] Comment on above: Performed By: #### L 501.2300, L501.5200, L100.0100, L500.4050 ####[facility] [address] [place], [address] IG% 0.700 Normal 0.0-0.9 [facility] Comment on above: Result Comment: IG% - Immature Granulocytes (promyelocytes, myelocytes andmetamyelocytes) > 1% indicates that a LEFT SHIFT is Present. Performed By: #### L 501.2300, L501.5200, L100.0100, L500.4050 ####[facility] [address] [place], [address] Lymphocytes/100 WBC (Bld) 23.7 % Normal 19-41 [facility] Comment on above: Performed By: #### L 501.2300, L501.5200, L100.0100, L500.4050 ####[facility] [address] [place], [address] MCH (RBC) [Entitic mass] 31.5 pg Normal 27.0-32.0 [facility] Comment on above: Performed By: #### L 501.2300, L501.5200, L100.0100, L500.4050 ####[facility] [address] [place], [address] MCHC (RBC) [Mass/Vol] 35.3 g/dL Normal 32-36 [facility] Comment on above: Performed By: #### L 501.2300, L501.5200, L100.0100, L500.4050 ####[facility] [address] [place], [address] MCV (RBC) [Entitic vol] 89.3 fL Normal 81-99 [facility] Comment on above: Performed By: #### L 501.2300, L501.5200, L100.0100, L500.4050 ####[facility] [address] [place], [address] Monocytes/100 WBC (Bld) 7.2 % Normal 0-10 [facility] Comment on above: Performed By: #### L 501.2300, L501.5200, L100.0100, L500.4050 ####[facility] [address] [place], [address] Neutrophils/100 WBC (Bld) 65.0 % Normal 47-70 [facility] Comment on above: Performed By: #### L 501.2300, L501.5200, L100.0100, L500.4050 ####[facility] [address] [place], [place], [address] Nucleated RBC (Bld) [#/Vol] 0 10*3/uL Normal 0-5 [facility] Comment on above: Performed By: #### L 501.2300, L501.5200, L100.0100, L500.4050 ####[facility] [address] [place], [address] Platelet mean volume (Bld) [Entitic vol] 8.8 fL Normal 6.2-12.0 [facility] Comment on above: Performed By: #### L 501.2300, L501.5200, L100.0100, L500.4050 ####[facility] [address] [place], [address] Platelets (Bld) [#/Vol] 282 10*3/uL Normal 150-450 [facility] Comment on above: Performed By: #### L 501.2300, L501.5200, L100.0100, L500.4050 ####[facility] [address] [place], [address] RBC (Bld) [#/Vol] 2.70 10*6/uL Low 4.2-5.4 [facility] Comment on above: Performed By: #### L 501.2300, L501.5200, L100.0100, L500.4050 ####[facility] [address] [place], [address] RDW SD 49.5 fl High 35.1-43.9 [facility] Comment on above: Performed By: #### L 501.2300, L501.5200, L100.0100, L500.4050 ####[facility] [address] [place], [address] WBC (Bld) [#/Vol] 8.2 10*3/uL Normal 4.4-11.0 [facility] Comment on above: Performed By: #### L 501.2300, L501.5200, L100.0100, L500.4050 ####[facility] [address] [place] [place], [address] Comprehensive Metabolic Prof [facility] 02-22-2025 Albumin [Mass/Vol] 2.6 g/dL Low 3.4-4.8 [facility] Comment on above: Performed By: #### L 501.2300, L501.5200, L100.0100, L500.4050 ####[facility] [address] [place] [place], [address] Albumin/Globulin [Mass ratio] 0.9 {ratio} Normal 0.9-2.4 [facility] Comment on above: Performed By: #### L 501.2300, L501.5200, L100.0100, L500.4050 ####[facility] [address] [place], [address] ALK PHOS 106 U/L High 35-104 [facility] Comment on above: Performed By: #### L 501.2300, L501.5200, L100.0100, L500.4050 ####[facility] [address] [place], [address] ALT [Catalytic activity/Vol] U/L Normal <=34 [facility] Comment on above: Performed By: #### L 501.2300, L501.5200, L100.0100, L500.4050 ####[facility] [address] [place], [address] AST [Catalytic activity/Vol] 31 U/L Normal <=31 [facility] Comment on above: Performed By: #### L 501.2300, L501.5200, L100.0100, L500.4050 ####[facility] [address] [place], [address] Bilirubin [Mass/Vol] 1.00 mg/dL Normal 0.00-1.30 [facility] Comment on above: Performed By: #### L 501.2300, L501.5200, L100.0100, L500.4050 ####[facility] [address] [place], [address] BUN/CRE 32.5 RATIO High 10-20 [facility] Comment on above: Performed By: #### L 501.2300, L501.5200, L100.0100, L500.4050 ####[facility] [address] [place], [address] Calcium [Mass/Vol] 8.6 mg/dL Normal 7.6-11.0 [facility] Comment on above: Performed By: #### L 501.2300, L501.5200, L100.0100, L500.4050 ####[facility] [address] [place], [address] Chloride [Moles/Vol] 99 mmol/L Normal 98-108 [facility] Comment on above: Performed By: #### L 501.2300, L501.5200, L100.0100, L500.4050 ####[facility] [address] [place], [address] CO2 [Moles/Vol] 23.6 mmol/L Normal 21.0-32.0 [facility] Comment on above: Performed By: #### L 501.2300, L501.5200, L100.0100, L500.4050 ####[facility] [address] [place], [address] Creatinine [Mass/Vol] 0.47 mg/dL Low 0.70-1.20 [facility] Comment on above: Performed By: #### L 501.2300, L501.5200, L100.0100, L500.4050 ####[facility] [address] [place], [address] ECRCL 51.41 ml/min Normal 50-250 [facility] Comment on above: Performed By: #### L 501.2300, L501.5200, L100.0100, L500.4050 ####[facility] [address] [place], [address] GAP 8 Normal 5-15 [facility] Comment on above: Performed By: #### L 501.2300, L501.5200, L100.0100, L500.4050 ####[facility] [address] [place], [address] GFR/1.73 sq M.predicted among non-blacks MDRD (S/P/Bld) [Vol rate/Area] 98 mL/min/{1.73_m2} Normal >60 [facility] Comment on above: Result Comment: mL/m in/1.73m2 CKD-EPI Creatinine Equation (2020) Performed By: #### L 501.2300, L501.5200, L100.0100, L500.4050 ####[facility] [address] [place], [address] Globulin (S) [Mass/Vol] 3.0 g/dL Normal 2.2-4.2 [facility] Comment on above: Performed By: #### L 501.2300, L501.5200, L100.0100, L500.4050 ####[facility] [address] [place], [address] Glucose [Mass/Vol] 203 mg/dL High 70-99 [facility] Comment on above: Performed By: #### L 501.2300, L501.5200, L100.0100, L500.4050 ####[facility] [address] [place], [address] Potassium [Moles/Vol] 4.1 mmol/L Normal 3.3-5.1 [facility] Comment on above: Performed By: #### L 501.2300, L501.5200, L100.0100, L500.4050 ####[facility] [address] [place], [address] Sodium [Moles/Vol] 131 mmol/L Low 133-145 [facility] Comment on above: Performed By: #### L 501.2300, L501.5200, L100.0100, L500.4050 ####[facility] [address] [place], [address] T PROT 5.6 g/dL Low 5.9-8.4 [facility] Comment on above: Performed By: #### L 501.2300, L501.5200, L100.0100, L500.4050 ####[facility] [address] [place], [address] Urea nitrogen [Mass/Vol] 15 mg/dL Normal 4-19 [facility] Comment on above: Performed By: #### L 501.2300, L501.5200, L100.0100, L500.4050 ####[facility] [address] [place], [address] Eosinophil percentageOrdered By: Katie Bah on 02-22-2025 Eosinophils/100 WBC (Bld) 3.0 % 0-5 [facility] Erythrocyte distribution wid th ratioOrdered By: Katie Bah on 02-22-2025 Erythrocyte distribution width (RBC) [Ratio] 15.4 % High 11.6-14.6 [facility] Erythrocyte distribution wid th standard deviationOrdered By: Katie Bah on 02-22-2025 Erythrocyte distribution width (RBC) [Ratio] 49.5 fl High 35.1-43.9 [facility] Ferritinon 02-22-2025 Ferritin [Mass/Vol] 217 ng/mL Normal 22-378 [facility] Comment on above: Performed By: #### L 503.6030, L503.6550 ####[facility] [address] [place], [place], [id number] Immature granulocytes/100 WB C Auto (Bld)Ordered By: Katie Kimjaquan on 02-22-2025 Immature granulocytes/100 WBC (Bld) 0.700 % 0.0-0.9 [facility] Comment on above: IG% - Immature Granu locytes (promyelocytes, myelocytes and metamyelocytes) > 1% indicates that a LEFT SHIFT is Present. Iron measurement (mass/mass) Ordered By: Katie Kimjaquan on 02-22-2025 Iron (Unsp spec) [Mass/Mass] 69 ug/dL 50-170 [facility] Iron+Iron Binding Capacityon 02-22-2025 TIBC 197 ug/dL Low 250-450 [facility] Comment on above: Performed By: #### L 503.6030, L503.6550 ####[facility] [address] [place], [place], [id number] Laboratory - Chemistry and C hemistry - challengeOrdered By: Katie Kimjaquan on 02-22-2025 AST [Catalytic activity/Vol] 31 U/L <32 [facility] MCV (mean corpuscular volume ) determinationOrdered By: Katie Kimjaquan on 02-22-2025 MCV (RBC) [Entitic vol] 89.3 fL 81-99 [facility] Magnesiumon 02-22-2025 Magnesium [Mass/Vol] 1.5 mg/dL Normal 1.5-2.2 [facility] Comment on above: Performed By: #### L 501.2300, L501.5200, L100.0100, L500.4050 ####[facility] [address] [place], [place], [id number] Mean corpuscular hemoglobin (MCH) determinationOrdered By: Katie Bah on 02-22-2025 MCH (RBC) [Entitic mass] 31.5 pg 27.0-32.0 [facility] Mean corpuscular hemoglobin concentration (MCHC) determinationOrdered By: Katie Bah on 02-22-2025 MCHC (RBC) [Mass/Vol] 35.3 g/dL 32-36 [facility] Mean platelet volume determi nationOrdered By: Katie Bah on 02-22-2025 Platelet mean volume (Bld) [Entitic vol] 8.8 fL 6.2-12.0 [facility] Monocyte percentageOrdered B y: Katie Bah on 02-22-2025 Monocytes/100 WBC (Bld) 7.2 % 0-10 [facility] Neutrophil percentageOrdered By: Katie Bah on 02-22-2025 Neutrophils/100 WBC (Bld) 65.0 % 47-70 [facility] No Panel InformationOrdered By: Katie Bah on 02-22-2025 Unsaturated Iron Binding Capacity 128 ug/dL Low 228-428 [facility] Nucleated red blood cell per centageOrdered By: Katie Bah on 02-22-2025 Nucleated RBC/100 WBC (Bld) [Ratio] 0 % 0-5 [facility] Osmolality urOrdered By: Joya sultana Olvin on 02-22-2025 Osmolality (U) [Osmolality] 176 mOsm/KG >50 [facility] Comment on above: Normal Urine Referen ce Ranges Random: 50 - 1200 mOsm/kg H20 depending on fluid intake Random: >850 mOsm/kg after 12 hour fluid restriction 24 hour: ~300 - 900 mOsm/kg H2O Osmolality, Serumon 02-23-20 25 OSMOLALITY,SER 283 mOsm/KG Normal 280-301 [facility] Comment on above: Performed By: #### L 501.7300 ####[facility] [address] [place], [place], [address] Osmolality, Urineon 02-23-20 25 OSMOLALITY,UR 176 mOsm/KG Normal [facility] Comment on above: Result Comment: Norm al Urine Reference Ranges Random: 50 - 1200 mOsm/kg H20 depending on fluid intake Random: >850 mOsm/kg after 12 hour fluid restriction 24 hour: 300 - 900 mOsm/kg H2O Performed By: #### L 501.7400, L501.5500 ####[facility] [address] [place], [address] Phosphoruson 02-22-2025 Phosphate [Mass/Vol] 3.2 mg/dL Normal 2.7-4.5 [facility] Comment on above: Performed By: #### L 501.2300, L501.5200, L100.0100, L500.4050 ####[facility] [address] [place], [address] Platelet countOrdered By: Shahida Bah on 02-22-2025 Platelets (Bld) [#/Vol] 282 10*3/uL 150-450 [facility] RBC Auto (Bld) [#/Vol]Ordere d By: Katie Bah on 02-22-2025 RBC (Bld) [#/Vol] 2.70 10*6/uL Low 4.2-5.4 [facility] Serum globulin measurementOr dered By: Katie Bah on 02-22-2025 Globulin (S) [Mass/Vol] 3.0 g/dL 2.2-4.2 [facility] Serum or plasma alanine cornejo otransferase (ALT) measurementOrdered By: Katie Bah on 02-22-2025 ALT [Catalytic activity/Vol] U/L <35 [facility] Serum or plasma albumin sabino urement (mass/volume)Ordered By: Katie Bah on 02-22-2025 Albumin [Mass/Vol] 2.6 g/dL Low 3.4-4.8 [facility] Serum or plasma albumin/glob ulin mass ratioOrdered By: Katie Bah on 02-22-2025 Albumin/Globulin [Mass ratio] 0.9 {ratio} 0.9-2.4 [facility] Serum or plasma alkaline shaista sphatase measurementOrdered By: Katie Bah on 02-22-2025 ALP [Catalytic activity/Vol] 106 U/L High 35-104 [facility] Serum or plasma ferritin uzma surement (mass/volume)Ordered By: Katie Bah on 02-22-2025 Ferritin [Mass/Vol] 217 ng/mL 22-378 [facility] Serum or plasma iron saturat ion measurement (mass fraction)Ordered By: Katie Kimjaquan on 02-22-2025 Iron saturation [Mass fraction] 35.0 % 13-59 [facility] Stool Occult Blood iFOBon STOB Positive Normal [facility] Comment on above: Performed By: #### M 100.7900 ####[facility] [address] [place], [place], [id number] Stool gastrointestinal hemog lobin detection by immunologic methodOrdered By: Katie Kimjaquan on 02-22-2025 Lower GI hemoglobin IA Ql (Stl) Positive Abnormal [facility] Total proteinOrdered By: Joya Kimjaquan on 02-22-2025 Protein [Mass/Vol] 5.6 g/dL Low 5.9-8.4 [facility] Urinalysis, Completeon 02-22 Mucus Ql (Urine sed) 0 SEEN Normal [facility] Comment on above: Order Comment: CLEAN CATCH Performed By: #### L 400.0001 ####[facility] [address] [place], [address] Urine Sodiumon 02-22-2025 UR NA < 20 Normal Not Establ. [facility] Comment on above: Performed By: #### L 501.7400, L501.5500 ####[facility] [address] [place], [place], [id number] Urine sodium measurement (mo les/volume)Ordered By: Katie Kimjaquan on 02-22-2025 Sodium (U) [Moles/Vol] mmol/L Not Establ. [facility] White blood cell (WBC) count Ordered By: Katie Kimjaquan on 02-22-2025 WBC (Bld) [#/Vol] 8.2 10*3/uL 4.4-11.0 [facility] Bedside Glucoseon 02-21-2025 FINGERSTICK GLU 192 mg/dL High 74-106 [facility] Comment on above: Result Comment: MARINA GEMENT OF PATIENT CARE PER NURSING PROTOCOL Performed By: #### L 501.080 ####[facility] [address] [place], [address] FINGERSTICK GLU 242 mg/dL High [address] [place] [address] Comment on above: Result Comment: MARINA GEMENT OF PATIENT CARE PER NURSING PROTOCOL Performed By: #### L 501.080 ####[facility] [address] [place], [address] FINGERSTICK GLU 245 mg/dL High [address] [place] [address] Comment on above: Result Comment: MARINA GEMENT OF PATIENT CARE PER NURSING PROTOCOL Performed By: #### L 501.080 ####[facility] [address] [place], [address] FINGERSTICK GLU 212 mg/dL High [address] [place] [address] Comment on above: Result Comment: MARINA GEMENT OF PATIENT CARE PER NURSING PROTOCOL Performed By: #### L 501.080 ####[facility] [address] [place], [address] [facility] deOrdered By: Gia Owusu on 02-21-2025 Glucose [Mass/Vol] 245 mg/dL High -106 [facility] Comment on above: MANAGEMENT OF PATIEN T CARE PER NURSING PROTOCOL Hemoglobinon 02-21-2025 Hemoglobin (Bld) [Mass/Vol] 8.6 g/dL Low 12.0-15.0 [facility] Comment on above: Performed By: #### L 100.1300 ####[facility] [address] [place], [address] Hemoglobin measurementOrdere d By: Gia Owusu on 02-21-2025 Hemoglobin (Bld) [Mass/Vol] 8.6 g/dL Low 12.0-15.0 [facility] Bedside Glucoseon 02-20-2025 FINGERSTICK GLU 209 mg/dL High [address] [place] [address] Comment on above: Result Comment: MARINA GEMENT OF PATIENT CARE PER NURSING PROTOCOL Performed By: #### L 501.080 ####[facility] [address] [place], [address] FINGERSTICK GLU 180 mg/dL High 74-106 [facility] Comment on above: Result Comment: MARINA GEMENT OF PATIENT CARE PER NURSING PROTOCOL Performed By: #### L 501.080 ####[facility] [address] [place], [address] FINGERSTICK GLU 287 mg/dL High 74-106 [facility] Comment on above: Result Comment: MARINA GEMENT OF PATIENT CARE PER NURSING PROTOCOL Performed By: #### L 501.080 ####[facility] [address] [place], [address] FINGERSTICK GLU 161 mg/dL High 74-106 [facility] Comment on above: Result Comment: MARINA GEMENT OF PATIENT CARE PER NURSING PROTOCOL Performed By: #### L 501.080 ####[facility] [address] [place], [address] Hemoglobinon 02-20-2025 Hemoglobin (Bld) [Mass/Vol] 8.9 g/dL Low 12.0-15.0 [facility] Comment on above: Performed By: #### L 100.1300 ####[facility] [address] [place], [address] Hemoglobin (Bld) [Mass/Vol] 8.6 g/dL Low 12.0-15.0 [facility] Comment on above: Performed By: #### L 100.1300 ####[facility] [address] [place], [address] Anion gap in Serum or Plasma Ordered By: Gia Owusu on 02-19-2025 Anion gap [Moles/Vol] 10 mmol/L 5-15 [facility] BUN/creatinine ratioOrdered By: Gia Owusu on 02-19-2025 Urea nitrogen/Creatinine [Mass ratio] 23.4 mg/mg High 10-20 [facility] Basic Metabolic Profile (BMP )on 02-19-2025 BUN/CRE 23.4 RATIO High 10-20 [facility] Comment on above: Performed By: #### L 500.2500, L100.0500 ####[facility] [address] [place], [address] Calcium [Mass/Vol] 8.4 mg/dL Normal 7.6-11.0 [facility] Comment on above: Performed By: #### L 500.2500, L100.0500 ####[facility] [address] [place], [address] Chloride [Moles/Vol] 103 mmol/L Normal 98-108 [facility] Comment on above: Performed By: #### L 500.2500, L100.0500 ####[facility] [address] [place], [address] CO2 [Moles/Vol] 21.3 mmol/L Normal 21.0-32.0 [facility] Comment on above: Performed By: #### L 500.2500, L100.0500 ####[facility] [address] [place], [address] Creatinine [Mass/Vol] 0.51 mg/dL Low 0.70-1.20 [facility] Comment on above: Performed By: #### L 500.2500, L100.0500 ####[facility] [address] [place], [address] ECRCL 44.44 ml/min Low 50-250 [facility] Comment on above: Performed By: #### L 500.2500, L100.0500 ####[facility] [address] [place], [address] GAP 10 Normal 5-15 [facility] Comment on above: Performed By: #### L 500.2500, L100.0500 ####[facility] [address] [place], [address] GFR/1.73 sq M.predicted among non-blacks MDRD (S/P/Bld) [Vol rate/Area] 96 mL/min/{1.73_m2} Normal >60 [facility] Comment on above: Result Comment: mL/m in/1.73m2 CKD-EPI Creatinine Equation (2020) Performed By: #### L 500.2500, L100.0500 ####[facility] [address] [place], [address] Glucose [Mass/Vol] 165 mg/dL High 70-99 [facility] Comment on above: Performed By: #### L 500.2500, L100.0500 ####[facility] [address] [place], [address] Potassium [Moles/Vol] 3.7 mmol/L Normal 3.3-5.1 [facility] Comment on above: Result Comment: Hemo lysis present, Results??could be affected.?? Performed By: #### L 500.2500, L100.0500 ####[facility] [address] [place], [address] Sodium [Moles/Vol] 134 mmol/L Normal 133-145 [facility] Comment on above: Performed By: #### L 500.2500, L100.0500 ####[facility] [address] [place], [address] Urea nitrogen [Mass/Vol] 12 mg/dL Normal 4-19 [facility] Comment on above: Performed By: #### L 500.2500, L100.0500 ####[facility] [address] [place], [address] Bedside Glucoseon 02-19-2025 FINGERSTICK GLU 202 mg/dL High 74-106 [facility] Comment on above: Result Comment: MARINA FERNANDEZ OF PATIENT CARE PER NURSING PROTOCOL Performed By: #### L 501.080 ####[facility] [address] [place], [address] FINGERSTICK GLU 179 mg/dL High 74-106 [facility] Comment on above: Result Comment: MARINA GEMENT OF PATIENT CARE PER NURSING PROTOCOL Performed By: #### L 501.080 ####[facility] [address] [place], [address] FINGERSTICK GLU 276 mg/dL High 74-106 [facility] Comment on above: Result Comment: MARINA GEMENT OF PATIENT CARE PER NURSING PROTOCOL Performed By: #### L 501.080 ####[facility] [address] [place], [address] FINGERSTICK GLU 162 mg/dL High 74-106 [facility] Comment on above: Result Comment: MARINA GEMENT OF PATIENT CARE PER NURSING PROTOCOL Performed By: #### L 501.080 ####[facility] [address] [place], [address] CBC-Complete Blood Cnt No Di ffon 02-19-2025 Erythrocyte distribution width (RBC) [Ratio] 15.2 % High 11.6-14.6 [facility] Comment on above: Performed By: #### L 500.2500, L100.0500 ####[facility] [address] [place], [address] Hematocrit (Bld) [Volume fraction] 26.2 % Low 37-47 [facility] Comment on above: Performed By: #### L 500.2500, L100.0500 ####[facility] [address] [place], [address] Hemoglobin (Bld) [Mass/Vol] 9.1 g/dL Low 12.0-15.0 [facility] Comment on above: Performed By: #### L 500.2500, L100.0500 ####[facility] [address] [place], [address] MCH (RBC) [Entitic mass] 30.8 pg Normal 27.0-32.0 [facility] Comment on above: Performed By: #### L 500.2500, L100.0500 ####[facility] [address] [place], [address] MCHC (RBC) [Mass/Vol] 34.7 g/dL Normal 32-36 [facility] Comment on above: Performed By: #### L 500.2500, L100.0500 ####[facility] [address] [place], [address] MCV (RBC) [Entitic vol] 88.8 fL Normal 81-99 [facility] Comment on above: Performed By: #### L 500.2500, L100.0500 ####[facility] [address] [place], [address] Platelet mean volume (Bld) [Entitic vol] 9.6 fL Normal 6.2-12.0 [facility] Comment on above: Performed By: #### L 500.2500, L100.0500 ####[facility] [address] [place], [address] Platelets (Bld) [#/Vol] 262 10*3/uL Normal 150-450 [facility] Comment on above: Performed By: #### L 500.2500, L100.0500 ####[facility] [address] [place], [address] RBC (Bld) [#/Vol] 2.95 10*6/uL Low 4.2-5.4 [facility] Comment on above: Performed By: #### L 500.2500, L100.0500 ####[facility] [address] [place], [address] RDW SD 47.0 fl High 35.1-43.9 [facility] Comment on above: Performed By: #### L 500.2500, L100.0500 ####[facility] [address] [place], [address] WBC (Bld) [#/Vol] 10.0 10*3/uL Normal 4.4-11.0 [facility] Comment on above: Performed By: #### L 500.2500, L100.0500 ####[facility] [address] [place], [address] Carbon dioxide, total [Moles /volume] in Central venous bloodOrdered By: Gia Owusu on 02-19-2025 CO2 [Moles/Vol] 21.3 mmol/L 21.0-32.0 [facility] Chloride assayOrdered By: Ahsan Owusu on 02-19-2025 Chloride [Moles/Vol] 103 mmol/L 98-108 [facility] Erythrocyte distribution wid th ratioOrdered By: Gia Owusu on 02-19-2025 Erythrocyte distribution width (RBC) [Ratio] 15.2 % High 11.6-14.6 [facility] Erythrocyte distribution wid th standard deviationOrdered By: Gia Owusu on 02-19-2025 Erythrocyte distribution width (RBC) [Ratio] 47.0 fl High 35.1-43.9 [facility] Glomerular filtration rate ( GFR) estimation/1.73 sq m using serum, plasma, or whole bOrdered By: Gia Owusu on 02-19-2025 GFR/1.73 sq M.predicted among non-blacks MDRD (S/P/Bld) [Vol rate/Area] 96 mL/min/{1.73_m2} >60 [facility] Comment on above: mL/min/1.73m2 CKD-EP I Creatinine Equation (2020) Hematocrit Auto (Bld) [Volum e fraction]Ordered By: Gia Owusu on 02-19-2025 Hematocrit (Bld) [Volume fraction] 26.2 % Low 37-47 [facility] MCV (mean corpuscular volume ) determinationOrdered By: Gia Owusu on 02-19-2025 MCV (RBC) [Entitic vol] 88.8 fL 81-99 [facility] MR/GGRSPFPW5zo 02-19-2025 MR/POSTOPAN2 Normal [facility] Mean corpuscular hemoglobin (MCH) determinationOrdered By: Gia Owusu on 02-19-2025 MCH (RBC) [Entitic mass] 30.8 pg 27.0-32.0 [facility] Mean corpuscular hemoglobin concentration (MCHC) determinationOrdered By: Gia Owusu on 02-19-2025 MCHC (RBC) [Mass/Vol] 34.7 g/dL 32-36 [facility] Mean platelet volume determi nationOrdered By: Gia Owusu on 02-19-2025 Platelet mean volume (Bld) [Entitic vol] 9.6 fL 6.2-12.0 [facility] Platelet countOrdered By: Ahsan Owusu on 02-19-2025 Platelets (Bld) [#/Vol] 262 10*3/uL 150-450 [facility] Potassium measurement (mass/ volume)Ordered By: Gia Owusu on 02-19-2025 Potassium (Unsp spec) [Mass/Vol] 3.7 mmol/L 3.3-5.1 [facility] Comment on above: Hemolysis present, R esults could be affected. RBC Auto (Bld) [#/Vol]Ordere d By: Gia Owusu on 02-19-2025 RBC (Bld) [#/Vol] 2.95 10*6/uL Low 4.2-5.4 [facility] Serum creatinine measurement (mass/volume)Ordered By: Gia Owusu on 02-19-2025 Creatinine [Mass/Vol] 0.51 mg/dL Low 0.70-1.20 [facility] Serum glucose measurement (m ass/volume)Ordered By: Gia Owusu on 02-19-2025 Glucose [Mass/Vol] 165 mg/dL High 70-99 [facility] Serum or plasma calcium sabino urement (mass/volume)Ordered By: Gia Owusu on 02-19-2025 Calcium [Mass/Vol] 8.4 mg/dL 7.6-11.0 [facility] Serum or plasma urea nitroge n measurement (mass/volume)Ordered By: Gia Owusu on 02-19-2025 Urea nitrogen [Mass/Vol] 12 mg/dL 4-19 [facility] Sodium levelOrdered By: Delmy Owusu on 02-19-2025 Sodium [Moles/Vol] 134 mmol/L 133-145 [facility] White blood cell (WBC) count Ordered By: Gia Owusu on 02-19-2025 WBC (Bld) [#/Vol] 10.0 10*3/uL 4.4-11.0 [facility] Absolute lymphocyte countOrd ered By: Gia Owusu on 02-18-2025 Lymphocytes Auto (Unsp spec) [#/Vol] 2.07 10*3/uL 0.83-4.51 [facility] Absolute neutrophil countOrd ered By: Gia Owusu on 02-18-2025 Neutrophils (Bld) [#/Vol] 5.8 10*3/uL 2.0-7.7 [facility] Automated lymphocyte count a s percentage of total leukocytesOrdered By: Gia Owusu on 02-18-2025 Lymphocytes/100 WBC Auto (Unsp spec) 22.6 % 19-41 [facility] Basophil percentageOrdered B y: Gia Owusu on 02-18-2025 Basophils/100 WBC (Bld) 0.4 % 0-1 [facility] Bedside Glucoseon 02-18-2025 FINGERSTICK GLU 196 mg/dL High 74-106 [facility] Comment on above: Result Comment: MARINA GEMENT OF PATIENT CARE PER NURSING PROTOCOL Performed By: #### L 501.080 ####[facility] [address] [facility] [address] FINGERSTICK GLU 187 mg/dL High [address] [place] [address] Comment on above: Result Comment: MARINA GEMENT OF PATIENT CARE PER NURSING PROTOCOL Performed By: #### L 501.080 ####[facility] [address] [place], [address] FINGERSTICK GLU 285 mg/dL High [address] [place] [address] Comment on above: Result Comment: MARINA GEMENT OF PATIENT CARE PER NURSING PROTOCOL Performed By: #### L 501.080 ####[facility] [address] [place], [address] FINGERSTICK GLU 188 mg/dL High 74-106 [facility] Comment on above: Result Comment: MARINA FERNANDEZ OF PATIENT CARE PER NURSING PROTOCOL Performed By: #### L 501.080 ####[facility] [address] [place], [address] CBC W/Diff, Automatedon 01-22 Absolute Lymph 2.07 X10 3/uL Normal 0.83-4.51 [facility] Comment on above: Performed By: #### L 100.0100 ####[facility] [address] [place], [address] Absolute Neut 5.8 X10 3/uL Normal 2.0-7.7 [facility] Comment on above: Performed By: #### L 100.0100 ####[facility] [address] [place], [address] Basophils/100 WBC (Bld) 0.4 % Normal 0-1 [facility] Comment on above: Performed By: #### L 100.0100 ####[facility] [address] [place], [address] Eosinophils/100 WBC (Bld) 2.4 % Normal 0-5 [facility] Comment on above: Performed By: #### L 100.0100 ####[facility] [address] [place], [address] Erythrocyte distribution width (RBC) [Ratio] 15.3 % High 11.6-14.6 [facility] Comment on above: Performed By: #### L 100.0100 ####[facility] [address] [place], [address] Hematocrit (Bld) [Volume fraction] 26.8 % Low 37-47 [facility] Comment on above: Performed By: #### L 100.0100 ####[facility] [address] [place], [address] Hemoglobin (Bld) [Mass/Vol] 9.6 g/dL Low 12.0-15.0 [facility] Comment on above: Performed By: #### L 100.0100 ####[facility] [address] [place], [address] IG% 0.500 Normal 0.0-0.9 [facility] Comment on above: Result Comment: IG% - Immature Granulocytes (promyelocytes, myelocytes andmetamyelocytes) > 1% indicates that a LEFT SHIFT is Present. Performed By: #### L 100.0100 ####[facility] [address] [place], [address] Lymphocytes/100 WBC (Bld) 22.6 % Normal 19-41 [facility] Comment on above: Performed By: #### L 100.0100 ####[facility] [address] [place], [address] MCH (RBC) [Entitic mass] 31.1 pg Normal 27.0-32.0 [facility] Comment on above: Performed By: #### L 100.0100 ####[facility] [address] [place], [address] MCHC (RBC) [Mass/Vol] 35.8 g/dL Normal 32-36 [facility] Comment on above: Performed By: #### L 100.0100 ####[facility] [address] [place], [address] MCV (RBC) [Entitic vol] 86.7 fL Normal 81-99 [facility] Comment on above: Performed By: #### L 100.0100 ####[facility] [address] [place], [address] Monocytes/100 WBC (Bld) 10.4 % High 0-10 [facility] Comment on above: Performed By: #### L 100.0100 ####[facility] [address] [place], [address] Neutrophils/100 WBC (Bld) 63.7 % Normal 47-70 [facility] Comment on above: Performed By: #### L 100.0100 ####[facility] [address] [place], [address] Nucleated RBC (Bld) [#/Vol] 0 10*3/uL Normal 0-5 [facility] Comment on above: Performed By: #### L 100.0100 ####[facility] [address] [place], [address] Platelet mean volume (Bld) [Entitic vol] 9.4 fL Normal 6.2-12.0 [facility] Comment on above: Performed By: #### L 100.0100 ####[facility] [address] [place], [address] Platelets (Bld) [#/Vol] 247 10*3/uL Normal 150-450 [facility] Comment on above: Performed By: #### L 100.0100 ####[facility] [address] [place], [address] RBC (Bld) [#/Vol] 3.09 10*6/uL Low 4.2-5.4 [facility] Comment on above: Performed By: #### L 100.0100 ####[facility] [address] [place], [address] RDW SD 45.9 fl High 35.1-43.9 [facility] Comment on above: Performed By: #### L 100.0100 ####[facility] [address] [place], [address] WBC (Bld) [#/Vol] 9.2 10*3/uL Normal 4.4-11.0 [facility] Comment on above: Performed By: #### L 100.0100 ####[facility] [address] [place], [address] Eosinophil percentageOrdered By: Gia Owusu on 02-18-2025 Eosinophils/100 WBC (Bld) 2.4 % 0-5 [facility] Immature granulocytes/100 WB C Auto (Bld)Ordered By: Gia Owusu on 02-18-2025 Immature granulocytes/100 WBC (Bld) 0.500 % 0.0-0.9 [facility] Comment on above: IG% - Immature Granu locytes (promyelocytes, myelocytes and metamyelocytes) > 1% indicates that a LEFT SHIFT is Present. Monocyte percentageOrdered B y: Gia Owusu on 02-18-2025 Monocytes/100 WBC (Bld) 10.4 % High 0-10 [facility] Neutrophil percentageOrdered By: Gia Owusu on 02-18-2025 Neutrophils/100 WBC (Bld) 63.7 % 47-70 [facility] Nucleated red blood cell per centageOrdered By: Gia Owusu on 02-18-2025 Nucleated RBC/100 WBC (Bld) [Ratio] 0 % 0-5 [facility] Basic Metabolic Profile (BMP )on 02-17-2025 BUN/CRE 28.5 RATIO High 10-20 [facility] Comment on above: Performed By: #### L 100.0100, L500.2500 ####[facility] [address] [place], [address] Calcium [Mass/Vol] 8.3 mg/dL Normal 7.6-11.0 [facility] Comment on above: Performed By: #### L 100.0100, L500.2500 ####[facility] [address] [place], [address] Chloride [Moles/Vol] 105 mmol/L Normal 98-108 [facility] Comment on above: Performed By: #### L 100.0100, L500.2500 ####[facility] [address] [place], [address] CO2 [Moles/Vol] 20.2 mmol/L Low 21.0-32.0 [facility] Comment on above: Performed By: #### L 100.0100, L500.2500 ####[facility] [address] [place], [address] Creatinine [Mass/Vol] 0.61 mg/dL Low 0.70-1.20 [facility] Comment on above: Performed By: #### L 100.0100, L500.2500 ####[facility] [address] [place], [address] ECRCL 44.44 ml/min Low 50-250 [facility] Comment on above: Performed By: #### L 100.0100, L500.2500 ####[facility] [address] [place], [address] GAP 11 Normal 5-15 [facility] Comment on above: Performed By: #### L 100.0100, L500.2500 ####[facility] [address] [place], [address] GFR/1.73 sq M.predicted among non-blacks MDRD (S/P/Bld) [Vol rate/Area] 92 mL/min/{1.73_m2} Normal >60 [facility] Comment on above: Result Comment: mL/m in/1.73m2 CKD-EPI Creatinine Equation (2020) Performed By: #### L 100.0100, L500.2500 ####[facility] [address] [place], [address] Glucose [Mass/Vol] 157 mg/dL High 70-99 [facility] Comment on above: Performed By: #### L 100.0100, L500.2500 ####[facility] [address] [place], [address] Potassium [Moles/Vol] 4.0 mmol/L Normal 3.3-5.1 [facility] Comment on above: Performed By: #### L 100.0100, L500.2500 ####[facility] [address] [place], [address] Sodium [Moles/Vol] 136 mmol/L Normal 133-145 [facility] Comment on above: Performed By: #### L 100.0100, L500.2500 ####[facility] [address] [place], [address] Urea nitrogen [Mass/Vol] 17 mg/dL Normal 4-19 [facility] Comment on above: Performed By: #### L 100.0100, L500.2500 ####[facility] [address] [place], [address] Bedside Glucoseon 02-17-2025 FINGERSTICK GLU 246 mg/dL High 74-106 [facility] Comment on above: Result Comment: MARINA GEMENT OF PATIENT CARE PER NURSING PROTOCOL Performed By: #### L 501.080 ####[facility] [address] [place], [address] FINGERSTICK GLU 192 mg/dL High 74-106 [facility] Comment on above: Result Comment: MARINA GEMENT OF PATIENT CARE PER NURSING PROTOCOL Performed By: #### L 501.080 ####[facility] [address] [place], [address] FINGERSTICK GLU 238 mg/dL High 74-106 [facility] Comment on above: Result Comment: MARINA GEMENT OF PATIENT CARE PER NURSING PROTOCOL Performed By: #### L 501.080 ####[facility] [address] [place], [address] FINGERSTICK GLU 159 mg/dL High 74-106 [facility] Comment on above: Result Comment: MARINA GEMENT OF PATIENT CARE PER NURSING PROTOCOL Performed By: #### L 501.080 ####[facility] [address] [place], [address] CBC W/Diff, Automatedon -2 Absolute Lymph 2.20 X10 3/uL Normal 0.83-4.51 [facility] Comment on above: Performed By: #### L 100.0100, L500.2500 ####[facility] [address] [place], [address] Absolute Neut 6.7 X10 3/uL Normal 2.0-7.7 [facility] Comment on above: Performed By: #### L 100.0100, L500.2500 ####[facility] [address] [place], [address] Basophils/100 WBC (Bld) 0.2 % Normal 0-1 [facility] Comment on above: Performed By: #### L 100.0100, L500.2500 ####[facility] [address] [place], [address] Eosinophils/100 WBC (Bld) 0.3 % Normal 0-5 [facility] Comment on above: Performed By: #### L 100.0100, L500.2500 ####[facility] [address] [place], [address] Erythrocyte distribution width (RBC) [Ratio] 14.6 % Normal 11.6-14.6 [facility] Comment on above: Performed By: #### L 100.0100, L500.2500 ####[facility] [address] [place], [address] Hematocrit (Bld) [Volume fraction] 27.0 % Low 37-47 [facility] Comment on above: Performed By: #### L 100.0100, L500.2500 ####[facility] [address] [place], [address] Hemoglobin (Bld) [Mass/Vol] 9.9 g/dL Low 12.0-15.0 [facility] Comment on above: Performed By: #### L 100.0100, L500.2500 ####[facility] [address] [place], [address] IG% 0.600 Normal 0.0-0.9 [facility] Comment on above: Result Comment: IG% - Immature Granulocytes (promyelocytes, myelocytes andmetamyelocytes) > 1% indicates that a LEFT SHIFT is Present. Performed By: #### L 100.0100, L500.2500 ####[facility] [address] [place], [address] Lymphocytes/100 WBC (Bld) 22.0 % Normal 19-41 [facility] Comment on above: Performed By: #### L 100.0100, L500.2500 ####[facility] [address] [place], [address] MCH (RBC) [Entitic mass] 31.2 pg Normal 27.0-32.0 [facility] Comment on above: Performed By: #### L 100.0100, L500.2500 ####[facility] [address] [place], [address] MCHC (RBC) [Mass/Vol] 36.7 g/dL High 32-36 [facility] Comment on above: Performed By: #### L 100.0100, L500.2500 ####[facility] [address] [place], [address] MCV (RBC) [Entitic vol] 85.2 fL Normal 81-99 [facility] Comment on above: Performed By: #### L 100.0100, L500.2500 ####[facility] [address] [place], [address] Monocytes/100 WBC (Bld) 10.3 % High 0-10 [facility] Comment on above: Performed By: #### L 100.0100, L500.2500 ####[facility] [address] [place], [address] Neutrophils/100 WBC (Bld) 66.6 % Normal 47-70 [facility] Comment on above: Performed By: #### L 100.0100, L500.2500 ####[facility] [address] [place], [address] Nucleated RBC (Bld) [#/Vol] 0 10*3/uL Normal 0-5 [facility] Comment on above: Performed By: #### L 100.0100, L500.2500 ####[facility] [address] [place], [address] Platelet mean volume (Bld) [Entitic vol] 9.4 fL Normal 6.2-12.0 [facility] Comment on above: Performed By: #### L 100.0100, L500.2500 ####[facility] [address] [place], [address] Platelets (Bld) [#/Vol] 247 10*3/uL Normal 150-450 [facility] Comment on above: Performed By: #### L 100.0100, L500.2500 ####[facility] [address] [place], [address] RBC (Bld) [#/Vol] 3.17 10*6/uL Low 4.2-5.4 [facility] Comment on above: Performed By: #### L 100.0100, L500.2500 ####[facility] [address] [place], [address] RDW SD 44.0 fl High 35.1-43.9 [facility] Comment on above: Performed By: #### L 100.0100, L500.2500 ####[facility] [address] [place], [address] WBC (Bld) [#/Vol] 10.0 10*3/uL Normal 4.4-11.0 [facility] Comment on above: Performed By: #### L 100.0100, L500.2500 ####[facility] [address] [place], [address] Haptoglobinon 02-17-2025 HAPTOGLOBIN 91 mg/dL Normal 42-346 [facility] Comment on above: Result Comment: Perf ormed at: - [facility] [address] [place], [place] [id number] Director: Danielito العلي PhD, Phone: [phone] Performed By: #### L 3100.1367, L504.1910, E504.2504 ####[facility] [address] [place], [address] Activated partial thrombopla stin time (aPTT) in platelet poor plasma by coagulation aOrdered By: Bi Zaman on 02-16-2025 aPTT Coag (PPP) [Time] 31.5 s 24.1-36.2 [facility] Bedside Glucoseon 02-16-2025 FINGERSTICK GLU 250 mg/dL High 74-106 [facility] Comment on above: Result Comment: MARINA GEMENT OF PATIENT CARE PER NURSING PROTOCOL Performed By: #### L 501.080 ####[facility] [address] [place], [address] FINGERSTICK GLU 245 mg/dL High 74-106 [facility] Comment on above: Result Comment: MARINA GEMENT OF PATIENT CARE PER NURSING PROTOCOL Performed By: #### L 501.080 ####[facility] [address] [place], [address] FINGERSTICK GLU 151 mg/dL High 74-106 [facility] Comment on above: Result Comment: MARINA GEMENT OF PATIENT CARE PER NURSING PROTOCOL Performed By: #### L 501.080 ####[facility] [address] [place], [address] Bilirubin, totalOrdered By: Lakeshia Mas on 02-16-2025 Bilirubin [Mass/Vol] 1.96 mg/dL High 0.00-1.30 [facility] CBC W/Diff, Automatedon 01-22 Absolute Lymph 2.62 X10 3/uL Normal 0.83-4.51 [facility] Comment on above: Performed By: #### L 300.4310, L100.0100, L501.9520, L501.9985, L500.4050, L300.3900 ####[facility] [address] [place], [address] Absolute Neut 5.8 X10 3/uL Normal 2.0-7.7 [facility] Comment on above: Performed By: #### L 300.4310, L100.0100, L501.9520, L501.9985, L500.4050, L300.3900 ####[facility] [address] [place], [address] Basophils/100 WBC (Bld) 0.5 % Normal 0-1 [facility] Comment on above: Performed By: #### L 300.4310, L100.0100, L501.9520, L501.9985, L500.4050, L300.3900 ####[facility] [address] [place], [address] Eosinophils/100 WBC (Bld) 1.9 % Normal 0-5 [facility] Comment on above: Performed By: #### L 300.4310, L100.0100, L501.9520, L501.9985, L500.4050, L300.3900 ####[facility] [address] [place], [address] Erythrocyte distribution width (RBC) [Ratio] 14.4 % Normal 11.6-14.6 [facility] Comment on above: Performed By: #### L 300.4310, L100.0100, L501.9520, L501.9985, L500.4050, L300.3900 ####[facility] [address] [place], [address] Hematocrit (Bld) [Volume fraction] 24.1 % Low 37-47 [facility] Comment on above: Performed By: #### L 300.4310, L100.0100, L501.9520, L501.9985, L500.4050, L300.3900 ####[facility] [address] [place], [address] Hemoglobin (Bld) [Mass/Vol] 8.7 g/dL Low 12.0-15.0 [facility] Comment on above: Performed By: #### L 300.4310, L100.0100, L501.9520, L501.9985, L500.4050, L300.3900 ####[facility] [address] [place], [address] IG% 0.400 Normal 0.0-0.9 [facility] Comment on above: Result Comment: IG% - Immature Granulocytes (promyelocytes, myelocytes andmetamyelocytes) > 1% indicates that a LEFT SHIFT is Present. Performed By: #### L 300.4310, L100.0100, L501.9520, L501.9985, L500.4050, L300.3900 ####[facility] [address] [place], [address] Lymphocytes/100 WBC (Bld) 27.3 % Normal 19-41 [facility] Comment on above: Performed By: #### L 300.4310, L100.0100, L501.9520, L501.9985, L500.4050, L300.3900 ####[facility] [address] [place], [address] MCH (RBC) [Entitic mass] 32.1 pg High 27.0-32.0 [facility] Comment on above: Performed By: #### L 300.4310, L100.0100, L501.9520, L501.9985, L500.4050, L300.3900 ####[facility] [address] [place], [address] MCHC (RBC) [Mass/Vol] 36.1 g/dL High 32-36 [facility] Comment on above: Performed By: #### L 300.4310, L100.0100, L501.9520, L501.9985, L500.4050, L300.3900 ####[facility] [address] [place], [address] MCV (RBC) [Entitic vol] 88.9 fL Normal 81-99 [facility] Comment on above: Performed By: #### L 300.4310, L100.0100, L501.9520, L501.9985, L500.4050, L300.3900 ####[facility] [address] [place], [address] Monocytes/100 WBC (Bld) 9.3 % Normal 0-10 [facility] Comment on above: Performed By: #### L 300.4310, L100.0100, L501.9520, L501.9985, L500.4050, L300.3900 ####[facility] [address] [place], [address] Neutrophils/100 WBC (Bld) 60.6 % Normal 47-70 [facility] Comment on above: Performed By: #### L 300.4310, L100.0100, L501.9520, L501.9985, L500.4050, L300.3900 ####[facility] [address] [place], [address] Nucleated RBC (Bld) [#/Vol] 0 10*3/uL Normal 0-5 [facility] Comment on above: Performed By: #### L 300.4310, L100.0100, L501.9520, L501.9985, L500.4050, L300.3900 ####[facility] [address] [place], [address] Platelet mean volume (Bld) [Entitic vol] 9.5 fL Normal 6.2-12.0 [facility] Comment on above: Performed By: #### L 300.4310, L100.0100, L501.9520, L501.9985, L500.4050, L300.3900 ####[facility] [address] [place], [address] Platelets (Bld) [#/Vol] 297 10*3/uL Normal 150-450 [facility] Comment on above: Performed By: #### L 300.4310, L100.0100, L501.9520, L501.9985, L500.4050, L300.3900 ####[facility] [address] [place], [address] RBC (Bld) [#/Vol] 2.71 10*6/uL Low 4.2-5.4 [facility] Comment on above: Performed By: #### L 300.4310, L100.0100, L501.9520, L501.9985, L500.4050, L300.3900 ####[facility] [address] [place], [address] RDW SD 43.8 fl Normal 35.1-43.9 [facility] Comment on above: Performed By: #### L 300.4310, L100.0100, L501.9520, L501.9985, L500.4050, L300.3900 ####[facility] [address] [place], [address] WBC (Bld) [#/Vol] 9.6 10*3/uL Normal 4.4-11.0 [facility] Comment on above: Performed By: #### L 300.4310, L100.0100, L501.9520, L501.9985, L500.4050, L300.3900 ####[facility] [address] [place], [address] Comprehensive Metabolic Prof ilon 02-16-2025 Albumin [Mass/Vol] 3.0 g/dL Low 3.4-4.8 [facility] Comment on above: Performed By: #### L 300.4310, L100.0100, L501.9520, L501.9985, L500.4050, L300.3900 ####[facility] [address] [place], [address] Albumin/Globulin [Mass ratio] 0.8 {ratio} Low 0.9-2.4 [facility] Comment on above: Performed By: #### L 300.4310, L100.0100, L501.9520, L501.9985, L500.4050, L300.3900 ####[facility] [address] [place], [address] ALK PHOS 89 U/L Normal 35-104 [facility] Comment on above: Performed By: #### L 300.4310, L100.0100, L501.9520, L501.9985, L500.4050, L300.3900 ####[facility] [address] [place], [address] ALT [Catalytic activity/Vol] U/L Normal <=34 [facility] Comment on above: Performed By: #### L 300.4310, L100.0100, L501.9520, L501.9985, L500.4050, L300.3900 ####[facility] [id number] [place], [address] AST [Catalytic activity/Vol] 34 U/L High <=31 [facility] Comment on above: Performed By: #### L 300.4310, L100.0100, L501.9520, L501.9985, L500.4050, L300.3900 ####[facility] [id number] [place], [address] Bilirubin [Mass/Vol] 1.96 mg/dL High 0.00-1.30 [facility] Comment on above: Performed By: #### L 300.4310, L100.0100, L501.9520, L501.9985, L500.4050, L300.3900 ####[facility] [address] [place], [address] BUN/CRE 28.4 RATIO High 10-20 [facility] Comment on above: Performed By: #### L 300.4310, L100.0100, L501.9520, L501.9985, L500.4050, L300.3900 ####[facility] [address] [place], [address] Calcium [Mass/Vol] 8.9 mg/dL Normal 7.6-11.0 [facility] Comment on above: Performed By: #### L 300.4310, L100.0100, L501.9520, L501.9985, L500.4050, L300.3900 ####[facility] [address] [place], [address] Chloride [Moles/Vol] 102 mmol/L Normal 98-108 [facility] Comment on above: Performed By: #### L 300.4310, L100.0100, L501.9520, L501.9985, L500.4050, L300.3900 ####[facility] [address] [place], [address] CO2 [Moles/Vol] 19.9 mmol/L Low 21.0-32.0 [facility] Comment on above: Performed By: #### L 300.4310, L100.0100, L501.9520, L501.9985, L500.4050, L300.3900 ####[facility] [address] [place], [address] Creatinine [Mass/Vol] 0.77 mg/dL Normal 0.70-1.20 [facility] Comment on above: Performed By: #### L 300.4310, L100.0100, L501.9520, L501.9985, L500.4050, L300.3900 ####[facility] [address] [place], [address] ECRCL 44.44 ml/min Low 50-250 [facility] Comment on above: Performed By: #### L 300.4310, L100.0100, L501.9520, L501.9985, L500.4050, L300.3900 ####[facility] [address] [place], [address] GAP 12 Normal 5-15 [facility] Comment on above: Performed By: #### L 300.4310, L100.0100, L501.9520, L501.9985, L500.4050, L300.3900 ####[facility] [address] [place], [address] GFR/1.73 sq M.predicted among non-blacks MDRD (S/P/Bld) [Vol rate/Area] 80 mL/min/{1.73_m2} Normal >60 [facility] Comment on above: Result Comment: mL/m in/1.73m2 CKD-EPI Creatinine Equation (2020) Performed By: #### L 300.4310, L100.0100, L501.9520, L501.9985, L500.4050, L300.3900 ####[facility] [address] [place], [address] Globulin (S) [Mass/Vol] 3.6 g/dL Normal 2.2-4.2 [facility] Comment on above: Performed By: #### L 300.4310, L100.0100, L501.9520, L501.9985, L500.4050, L300.3900 ####[facility] [address] [place], [address] Glucose [Mass/Vol] 155 mg/dL High 70-99 [facility] Comment on above: Performed By: #### L 300.4310, L100.0100, L501.9520, L501.9985, L500.4050, L300.3900 ####[facility] [address] [place], [address] Potassium [Moles/Vol] 3.6 mmol/L Normal 3.3-5.1 [facility] Comment on above: Performed By: #### L 300.4310, L100.0100, L501.9520, L501.9985, L500.4050, L300.3900 ####[facility] [address] [place], [address] Sodium [Moles/Vol] 133 mmol/L Normal 133-145 [facility] Comment on above: Performed By: #### L 300.4310, L100.0100, L501.9520, L501.9985, L500.4050, L300.3900 ####[facility] [address] [place], [address] T PROT 6.6 g/dL Normal 5.9-8.4 [facility] Comment on above: Performed By: #### L 300.4310, L100.0100, L501.9520, L501.9985, L500.4050, L300.3900 ####[facility] [address] [place], [address] Urea nitrogen [Mass/Vol] 22 mg/dL High 4-19 [facility] Comment on above: Performed By: #### L 300.4310, L100.0100, L501.9520, L501.9985, L500.4050, L300.3900 ####[facility] [address] [place], [address] Consultation - Orthopedicson 02-16-2025 Consultation - Orthopedics Normal [facility] Hemoglobin A1con 02-16-2025 HbA1c (Bld) [Mass fraction] 7.3 % High <=5.6 [facility] Comment on above: Result Comment: Norm al < 5.7 % Prediabetic 5.7 - 6.4 % Diabetic >or= 6.5 % Please note range changes. Performed By: #### L 300.4310, L100.0100, L501.9520, L501.9985, L500.4050, L300.3900 ####[facility] [address] [place], [address] Hemoglobin A1c percentageOrd ered By: Lakeshia Mas on 02-16-2025 HbA1c (Bld) [Mass fraction] 7.3 % High <5.7 [facility] Comment on above: Normal < 5.7 % Predi abetic 5.7 - 6.4 % Diabetic >or= 6.5 % Please note range changes. Hip Min 2 Views (Portable)on 02-16-2025 Hip Min 2 Views (Portable) Normal [facility] International normalized rat io (INR) calculationOrdered By: Lakeshia Mas on 02-16-2025 INR Coag (Bld) [Relative time] 1.1 {INR} [facility] Laboratory - Chemistry and C hemistry - challengeOrdered By: Lakeshia Mas on 02-16-2025 AST [Catalytic activity/Vol] 34 U/L High <32 [facility] MR/POSTOP.ANEon 02-16-2025 MR/POSTOP.ANE Normal [facility] O.R. Fluoro for C-Panfilo 06- O.R. Fluoro for C-Arm Normal [facility] Operative Reporton Operative Report Normal [facility] Partial Thromboplast Timeon 02-16-2025 aPTT Coag (Bld) [Time] 31.5 s Normal 24.1-36.2 [facility] Comment on above: Performed By: #### L 300.4310, L100.0100, L501.9520, L501.9985, L500.4050, L300.3900 ####[facility] [address] [place], [address] Prothrombin Time w/INRon INR Coag (PPP) [Relative time] 1.1 {INR} Normal [facility] Comment on above: Performed By: #### L 300.4310, L100.0100, L501.9520, L501.9985, L500.4050, L300.3900 ####[facility] [address] [place], [address] PT Coag (PPP) [Time] 14.6 s Normal 11.7-14.9 [facility] Comment on above: Performed By: #### L 300.4310, L100.0100, L501.9520, L501.9985, L500.4050, L300.3900 ####[facility] [address] [place], [address] Prothrombin timeOrdered By: Lakeshia Mas on 02-16-2025 PT Coag (PPP) [Time] 14.6 s 11.7-14.9 [facility] Serum globulin measurementOr dered By: Lakeshia Mas on 02-16-2025 Globulin (S) [Mass/Vol] 3.6 g/dL 2.2-4.2 [facility] Serum or plasma alanine cornejo otransferase (ALT) measurementOrdered By: Lakeshia Mas on 02-16-2025 ALT [Catalytic activity/Vol] U/L <35 [facility] Serum or plasma albumin sabino urement (mass/volume)Ordered By: Lakeshia Mas on 02-16-2025 Albumin [Mass/Vol] 3.0 g/dL Low 3.4-4.8 [facility] Serum or plasma albumin/glob ulin mass ratioOrdered By: Lakeshia Mas on 02-16-2025 Albumin/Globulin [Mass ratio] 0.8 {ratio} Low 0.9-2.4 [facility] Serum or plasma alkaline shaista sphatase measurementOrdered By: Lakeshia Mas on 02-16-2025 ALP [Catalytic activity/Vol] 89 U/L 35-104 [facility] T4 Free Directon 02-16-2025 T4 FREE DIRECT 1.10 ng/dL Normal 0.76-1.46 [facility] Comment on above: Performed By: #### L 506.0400, L506.1001 ####[facility] [address] [place], [address] T4 freeOrdered By: Baldev reza on 02-16-2025 Free T4 [Mass/Vol] 1.10 ng/dL 0.76-1.46 [facility] TSH DL <= 0.005 mIU/L QnOrde red By: Lakeshia Mas on 02-16-2025 TSH Qn 7.490 uIU/mL High 0.300-4.200 [facility] Thyroid Stim Hormone (TSH)on 02-16-2025 TSH 7.490 uIU/mL High 0.300-4.200 [facility] Comment on above: Performed By: #### L 300.4310, L100.0100, L501.9520, L501.9985, L500.4050, L300.3900 ####[facility] [address] [place], [address] Total proteinOrdered By: Stephan Mas on 02-16-2025 Protein [Mass/Vol] 6.6 g/dL 5.9-8.4 [facility] Type AND Screenon 02-16-2025 ABO and Rh group Nom (Bld) Blood group O Rh(D) positive Normal [facility] Comment on above: Order Comment: S Performed By: #### B TS ####[facility] [address] [place], [id number] Vitamin D,25 Hydroxyon 02-16 Vitamin D 25-OH 10.7 ng/mL Low 30-100 [facility] Comment on above: Result Comment: Jojo min D StatusDeficiency: <20 ng/mL (50nmol/L)Insufficiency: 20-30 ng/mL (50-75 nmol/L)Sufficiency: 30-100 ng/mL (75-250 nmol/L)Toxicity: >100 ng/mL (>250 nmol/L) Performed By: #### L 506.0400, L506.1001 ####[facility] [address] [place], [place], [id number] Absolute lymphocyte countOrd ered By: Abdirashid Cano on 02-15-2025 Lymphocytes Auto (Unsp spec) [#/Vol] 3.52 10*3/uL 0.83-4.51 [facility] Absolute neutrophil countOrd ered By: Abdirashid Cano on 02-15-2025 Neutrophils (Bld) [#/Vol] 4.6 10*3/uL 2.0-7.7 [facility] Anion gap in Serum or Plasma Ordered By: Abdirashid Cano on 02-15-2025 Anion gap [Moles/Vol] 15 mmol/L 5-15 [facility] Automated lymphocyte count a s percentage of total leukocytesOrdered By: Abdirashid Cano on 02-15-2025 Lymphocytes/100 WBC Auto (Unsp spec) 38.6 % 19-41 [facility] BRCon 02-15-2025 RC Normal [facility] Comment on above: Result Comment: [id number] OP RC TRANSFUSED 02/16/25 [id number] OP RC TRANSFUSED 02/16/25 1642 Performed By: #### B RC ####[facility] [address] [place], [place], [id number] BUN/creatinine ratioOrdered By: Abdirashid Cano on 02-15-2025 Urea nitrogen/Creatinine [Mass ratio] 25.3 mg/mg High 10-20 [facility] Basophil percentageOrdered B y: Abdirashid Cano on 02-15-2025 Basophils/100 WBC (Bld) 0.4 % 0-1 [facility] Bedside Glucoseon 02-15-2025 FINGERSTICK GLU 148 mg/dL High 74-106 [facility] Comment on above: Result Comment: MARINA FERNANDEZ OF PATIENT CARE PER NURSING PROTOCOL Performed By: #### L 501.080 ####[facility] [address] [place], [place], [id number] Bilirubin Test strip Ql (U)O rdered By: Abdirashid Cano on 02-15-2025 Bilirubin Ql (U) Negative Negative [facility] Bilirubin directOrdered By: Lakeshia Mas on 02-15-2025 Bilirubin.direct [Mass/Vol] 1.15 mg/dL High 0.00-0.30 [facility] Bilirubin, Directon 02-16-20 25 Bilirubin.direct [Mass/Vol] 1.15 mg/dL High 0.00-0.30 [facility] Comment on above: Performed By: #### L 3100.1850, L504.2610, L501.4700 ####[facility] [address] [place], [place], [id number] Bilirubin, totalOrdered By: Abdirashid Cano on 02-15-2025 Bilirubin [Mass/Vol] 2.68 mg/dL High 0.00-1.30 [facility] CBC W/Diff, Automatedon 01-22 Absolute Lymph 3.52 X10 3/uL Normal 0.83-4.51 [facility] Comment on above: Performed By: #### L 100.0100, L500.4050 ####[facility] [address] [place], [place], [id number] Absolute Neut 4.6 X10 3/uL Normal 2.0-7.7 [facility] Comment on above: Performed By: #### L 100.0100, L500.4050 ####[facility] [address] [place], [address] Basophils/100 WBC (Bld) 0.4 % Normal 0-1 [facility] Comment on above: Performed By: #### L 100.0100, L500.4050 ####[facility] [address] [place], [address] Eosinophils/100 WBC (Bld) 1.8 % Normal 0-5 [facility] Comment on above: Performed By: #### L 100.0100, L500.4050 ####[facility] [address] [place], [address] Erythrocyte distribution width (RBC) [Ratio] 14.1 % Normal 11.6-14.6 [facility] Comment on above: Performed By: #### L 100.0100, L500.4050 ####[facility] [address] [place], [address] Hematocrit (Bld) [Volume fraction] 24.0 % Low 37-47 [facility] Comment on above: Performed By: #### L 100.0100, L500.4050 ####[facility] [address] [place], [address] Hemoglobin (Bld) [Mass/Vol] 8.7 g/dL Low 12.0-15.0 [facility] Comment on above: Performed By: #### L 100.0100, L500.4050 ####[facility] [address] [place], [address] IG% 0.300 Normal 0.0-0.9 [facility] Comment on above: Result Comment: IG% - Immature Granulocytes (promyelocytes, myelocytes andmetamyelocytes) > 1% indicates that a LEFT SHIFT is Present. Performed By: #### L 100.0100, L500.4050 ####[facility] [address] [place] [place], [address] Lymphocytes/100 WBC (Bld) 38.6 % Normal 19-41 [facility] Comment on above: Performed By: #### L 100.0100, L500.4050 ####[facility] [address] [place], [address] MCH (RBC) [Entitic mass] 32.1 pg High 27.0-32.0 [facility] Comment on above: Performed By: #### L 100.0100, L500.4050 ####[facility] [address] [place], [address] MCHC (RBC) [Mass/Vol] 36.3 g/dL High 32-36 [facility] Comment on above: Performed By: #### L 100.0100, L500.4050 ####[facility] [address] [place], [address] MCV (RBC) [Entitic vol] 88.6 fL Normal 81-99 [facility] Comment on above: Performed By: #### L 100.0100, L500.4050 ####[facility] [address] [place], [address] Monocytes/100 WBC (Bld) 8.7 % Normal 0-10 [facility] Comment on above: Performed By: #### L 100.0100, L500.4050 ####[facility] [address] [place], [address] Neutrophils/100 WBC (Bld) 50.2 % Normal 47-70 [facility] Comment on above: Performed By: #### L 100.0100, L500.4050 ####[facility] [address] [place], [address] Nucleated RBC (Bld) [#/Vol] 0 10*3/uL Normal 0-5 [facility] Comment on above: Performed By: #### L 100.0100, L500.4050 ####[facility] [address] [place], [address] Platelet mean volume (Bld) [Entitic vol] 9.6 fL Normal 6.2-12.0 [facility] Comment on above: Performed By: #### L 100.0100, L500.4050 ####[facility] [address] [place], [address] Platelets (Bld) [#/Vol] 258 10*3/uL Normal 150-450 [facility] Comment on above: Performed By: #### L 100.0100, L500.4050 ####[facility] [address] [place], [address] RBC (Bld) [#/Vol] 2.71 10*6/uL Low 4.2-5.4 [facility] Comment on above: Performed By: #### L 100.0100, L500.4050 ####[facility] [address] [place], [address] RDW SD 42.4 fl Normal 35.1-43.9 [facility] Comment on above: Performed By: #### L 100.0100, L500.4050 ####[facility] [address] [place], [address] WBC (Bld) [#/Vol] 9.1 10*3/uL Normal 4.4-11.0 [facility] Comment on above: Performed By: #### L 100.0100, L500.4050 ####[facility] [address] [place], [address] Carbon dioxide, total [Moles /volume] in Central venous bloodOrdered By: Abdirashid Cano on 02-15-2025 CO2 [Moles/Vol] 18.1 mmol/L Low 21.0-32.0 [facility] Chloride assayOrdered By: Anurag aCno on 02-15-2025 Chloride [Moles/Vol] 100 mmol/L 98-108 [facility] Comprehensive Metabolic Prof ilon 02-15-2025 Albumin [Mass/Vol] 3.0 g/dL Low 3.4-4.8 [facility] Comment on above: Performed By: #### L 100.0100, L500.4050 ####[facility] [address] [place], [address] Albumin/Globulin [Mass ratio] 0.8 {ratio} Low 0.9-2.4 [facility] Comment on above: Performed By: #### L 100.0100, L500.4050 ####[facility] [address] [place], [address] ALK PHOS 77 U/L Normal 35-104 [facility] Comment on above: Performed By: #### L 100.0100, L500.4050 ####[facility] [address] [place], [address] ALT [Catalytic activity/Vol] U/L Normal <=34 [facility] Comment on above: Performed By: #### L 100.0100, L500.4050 ####[facility] [address] [place], [address] AST [Catalytic activity/Vol] 33 U/L High <=31 [facility] Comment on above: Performed By: #### L 100.0100, L500.4050 ####[facility] [address] [place], [address] Bilirubin [Mass/Vol] 2.68 mg/dL High 0.00-1.30 [facility] Comment on above: Performed By: #### L 100.0100, L500.4050 ####[facility] [address] [place], [address] BUN/CRE 25.3 RATIO High 10-20 [facility] Comment on above: Performed By: #### L 100.0100, L500.4050 ####[facility] [address] [place], [address] Calcium [Mass/Vol] 8.7 mg/dL Normal 7.6-11.0 [facility] Comment on above: Performed By: #### L 100.0100, L500.4050 ####[facility] [address] [place], [address] Chloride [Moles/Vol] 100 mmol/L Normal 98-108 [facility] Comment on above: Performed By: #### L 100.0100, L500.4050 ####[facility] [address] [place], [address] CO2 [Moles/Vol] 18.1 mmol/L Low 21.0-32.0 [facility] Comment on above: Performed By: #### L 100.0100, L500.4050 ####[facility] [address] [place], [address] Creatinine [Mass/Vol] 0.76 mg/dL Normal 0.70-1.20 [facility] Comment on above: Performed By: #### L 100.0100, L500.4050 ####[facility] [address] [place], [address] ECRCL 50.65 ml/min Normal 50-250 [facility] Comment on above: Performed By: #### L 100.0100, L500.4050 ####[facility] [address] [place], [address] GAP 15 Normal 5-15 [facility] Comment on above: Performed By: #### L 100.0100, L500.4050 ####[facility] [address] [place], [address] GFR/1.73 sq M.predicted among non-blacks MDRD (S/P/Bld) [Vol rate/Area] 80 mL/min/{1.73_m2} Normal >60 [facility] Comment on above: Result Comment: mL/m in/1.73m2 CKD-EPI Creatinine Equation (2020) Performed By: #### L 100.0100, L500.4050 ####[facility] [address] [place], [address] Globulin (S) [Mass/Vol] 3.7 g/dL Normal 2.2-4.2 [facility] Comment on above: Performed By: #### L 100.0100, L500.4050 ####[facility] [address] [place], [address] Glucose [Mass/Vol] 155 mg/dL High 70-99 [facility] Comment on above: Performed By: #### L 100.0100, L500.4050 ####[facility] [address] [place], [address] Potassium [Moles/Vol] 3.7 mmol/L Normal 3.3-5.1 [facility] Comment on above: Performed By: #### L 100.0100, L500.4050 ####[facility] [address] [place], [address] Sodium [Moles/Vol] 133 mmol/L Normal 133-145 [facility] Comment on above: Performed By: #### L 100.0100, L500.4050 ####[facility] [address] [place], [address] T PROT 6.8 g/dL Normal 5.9-8.4 [facility] Comment on above: Performed By: #### L 100.0100, L500.4050 ####[facility] [address] [place], [address] Urea nitrogen [Mass/Vol] 19 mg/dL Normal 4-19 [facility] Comment on above: Performed By: #### L 100.0100, L500.4050 ####[facility] [address] [place], [place], [id number] Emergency Department Summary on 02-15-2025 Emergency Department Summary Normal [facility] Eosinophil percentageOrdered By: Abdirashid Cano on 02-15-2025 Eosinophils/100 WBC (Bld) 1.8 % 0-5 [facility] Erythrocyte distribution wid th ratioOrdered By: Abdirashid Cano on 02-15-2025 Erythrocyte distribution width (RBC) [Ratio] 14.1 % 11.6-14.6 [facility] Erythrocyte distribution wid th standard deviationOrdered By: Abdirashidroxie Cano on 02-15-2025 Erythrocyte distribution width (RBC) [Ratio] 42.4 fl 35.1-43.9 [facility] Femur Min 2 Viewson 02-16-20 25 Femur Min 2 Views Normal [facility] Ferritinon 02-15-2025 Ferritin [Mass/Vol] 150 ng/mL Normal 22-378 [facility] Comment on above: Performed By: #### L 503.6550, L100.9950, L503.6030 ####[facility] [address] [place], [place], [id number] Glomerular filtration rate ( GFR) estimation/1.73 sq m using serum, plasma, or whole bOrdered By: Abdirashid Cano on 02-15-2025 GFR/1.73 sq M.predicted among non-blacks MDRD (S/P/Bld) [Vol rate/Area] 80 mL/min/{1.73_m2} >60 [facility] Comment on above: mL/min/1.73m2 CKD-EP I Creatinine Equation (2020) H AND P Exam - Hospitaliston 02-15-2025 H&P Exam - Hospitalist Normal [facility] HIP, UNI W/ Pelvis 2-3 Views on 02-15-2025 HIP, UNI W/ Pelvis 2-3 Views Normal [facility] Hematocrit Auto (Bld) [Volum e fraction]Ordered By: Abdirashid Cano on 02-15-2025 Hematocrit (Bld) [Volume fraction] 24.0 % Low 37-47 [facility] Hemoglobin measurementOrdere d By: Abdirashid Cano on 02-15-2025 Hemoglobin (Bld) [Mass/Vol] 8.7 g/dL Low 12.0-15.0 [facility] Immature granulocytes/100 WB C Auto (Bld)Ordered By: Abdirashid Cano on 02-15-2025 Immature granulocytes/100 WBC (Bld) 0.300 % 0.0-0.9 [facility] Comment on above: IG% - Immature Granu locytes (promyelocytes, myelocytes and metamyelocytes) > 1% indicates that a LEFT SHIFT is Present. Iron measurement (mass/mass) Ordered By: Lakeshia Mas on 02-15-2025 Iron (Unsp spec) [Mass/Mass] 62 ug/dL 50-170 [facility] Iron+Iron Binding Capacityon 02-15-2025 TIBC 197 ug/dL Low 250-450 [facility] Comment on above: Performed By: #### L 503.6550, L100.9950, L503.6030 ####[facility] [address] [place], [place], [id number] Ketones Test strip Ql (U)Ord ered By: Abdirashid Cano on 02-15-2025 Ketones Ql (U) 15 mg/dl High Negative [facility] LDHon 02-15-2025 LDH 247 U/L High 84-246 [facility] Comment on above: Performed By: #### L 3100.1850, L504.2610, L501.4700 ####[facility] [address] [place], [place], [id number] Laboratory - Chemistry and C hemistry - challengeOrdered By: Abdirashid Cano on 02-15-2025 AST [Catalytic activity/Vol] 33 U/L High <32 [facility] Lactate dehydrogenase (LDH) measurementOrdered By: Lakeshia Mas on 02-15-2025 LDH [Catalytic activity/Vol] 247 U/L High 84-246 [facility] MCV (mean corpuscular volume ) determinationOrdered By: Abdirashid Cano on 02-15-2025 MCV (RBC) [Entitic vol] 88.6 fL 81-99 [facility] Mean corpuscular hemoglobin (MCH) determinationOrdered By: Abdirashid Cano on 02-15-2025 MCH (RBC) [Entitic mass] 32.1 pg High 27.0-32.0 [facility] Mean corpuscular hemoglobin concentration (MCHC) determinationOrdered By: Abdirashid Cano on 02-15-2025 MCHC (RBC) [Mass/Vol] 36.3 g/dL High 32-36 [facility] Mean platelet volume determi nationOrdered By: Abdirashid Cano on 02-15-2025 Platelet mean volume (Bld) [Entitic vol] 9.6 fL 6.2-12.0 [facility] Microscopic analysis of urin e for red blood cells (RBC)Ordered By: Abdirashid Cano on 02-15-2025 Microscopic analysis of urine for red blood cells (RBC) 0-5 SEEN /hpf 0-5 [facility] Monocyte percentageOrdered B y: Abdirashid Cano on 02-15-2025 Monocytes/100 WBC (Bld) 8.7 % 0-10 [facility] Mucus LM Ql (Urine sed)Order ed By: Abdirashid Cano on 02-15-2025 Mucus Ql (Urine sed) 0 SEEN /hpf [facility] Neutrophil percentageOrdered By: Abdirashid Cano on 02-15-2025 Neutrophils/100 WBC (Bld) 50.2 % 47-70 [facility] Nitrite Test strip Ql (U)Ord ered By: Abdirashid Cano on 02-15-2025 Nitrite Ql (U) Negative Negative [facility] No Panel InformationOrdered By: Lakeshia Mas on 02-15-2025 Unsaturated Iron Binding Capacity 135 ug/dL Low 228-428 [facility] Nucleated red blood cell per centageOrdered By: Abdirashid Cano on 02-15-2025 Nucleated RBC/100 WBC (Bld) [Ratio] 0 % 0-5 [facility] Platelet countOrdered By: Anurag Cano on 02-15-2025 Platelets (Bld) [#/Vol] 258 10*3/uL 150-450 [facility] Potassium measurement (mass/ volume)Ordered By: Abdirashid Cano on 02-15-2025 Potassium (Unsp spec) [Mass/Vol] 3.7 mmol/L 3.3-5.1 [facility] Protein Test strip Ql (U)Ord ered By: Abdirashid Jerome on 02-15-2025 Protein Ql (U) 30 mg/dl High Negative [facility] RBC Auto (Bld) [#/Vol]Ordere d By: Abdirashid Jerome on 02-15-2025 RBC (Bld) [#/Vol] 2.71 10*6/uL Low 4.2-5.4 [facility] Retic Panelon 02-15-2025 IM RET FRACTION 12.50 Normal 3.00-15.90 [facility] Comment on above: Performed By: #### L 503.6550, L100.9950, L503.6030 ####[facility] [address] [place], [address] RET-HE 35.7 pg High 30-35 [facility] Comment on above: Performed By: #### L 503.6550, L100.9950, L503.6030 ####[facility] [address] [place], [address] Retic Count 4.81 High 0.5-1.5 [facility] Comment on above: Performed By: #### L 503.6550, L100.9950, L503.6030 ####[facility] [address] [place], [address] Reticulocyte hemoglobin equi valent (RET-He) measurementOrdered By: Lakeshia Mas on 02-15-2025 Hemoglobin (Reticulocytes) [Entitic mass] 35.7 pg High 30-35 [facility] Reticulocytes Auto (Bld) [#/ Vol]Ordered By: Lakeshia Mas on 02-15-2025 Reticulocytes/100 RBC (Bld) 4.81 % High 0.5-1.5 [facility] Serum creatinine measurement (mass/volume)Ordered By: Abdirashid Cano on 02-15-2025 Creatinine [Mass/Vol] 0.76 mg/dL 0.70-1.20 [facility] Serum globulin measurementOr dered By: Abdirashid Cano on 02-15-2025 Globulin (S) [Mass/Vol] 3.7 g/dL 2.2-4.2 [facility] Serum glucose measurement (m ass/volume)Ordered By: Abdirashid Cano on 02-15-2025 Glucose [Mass/Vol] 155 mg/dL High 70-99 [facility] Serum or plasma alanine cornejo otransferase (ALT) measurementOrdered By: Abdirashid Cano on 02-15-2025 ALT [Catalytic activity/Vol] U/L <35 [facility] Serum or plasma albumin sabino urement (mass/volume)Ordered By: Abdirashid Cano on 02-15-2025 Albumin [Mass/Vol] 3.0 g/dL Low 3.4-4.8 [facility] Serum or plasma albumin/glob ulin mass ratioOrdered By: Abdirashid Cano on 02-15-2025 Albumin/Globulin [Mass ratio] 0.8 {ratio} Low 0.9-2.4 [facility] Serum or plasma alkaline shaista sphatase measurementOrdered By: Abdirashid Cano on 02-15-2025 ALP [Catalytic activity/Vol] 77 U/L 35-104 [facility] Serum or plasma calcium sabino urement (mass/volume)Ordered By: Abdirashid Cano on 02-15-2025 Calcium [Mass/Vol] 8.7 mg/dL 7.6-11.0 [facility] Serum or plasma ferritin uzma surement (mass/volume)Ordered By: Lakeshia Mas on 02-15-2025 Ferritin [Mass/Vol] 150 ng/mL 22-378 [facility] Serum or plasma iron saturat ion measurement (mass fraction)Ordered By: Lakeshia Mas on 02-15-2025 Iron saturation [Mass fraction] 32.0 % 13-59 [facility] Comment on above: Previous reported re sult: 32.0 %Edited by: CHACHA on 02/15/25:2135 Serum or plasma urea nitroge n measurement (mass/volume)Ordered By: Abdirashid Cano on 02-15-2025 Urea nitrogen [Mass/Vol] 19 mg/dL 4-19 [facility] Sodium levelOrdered By: Judith Cano on 02-15-2025 Sodium [Moles/Vol] 133 mmol/L 133-145 [facility] Squamous epithelial cells de tection in urine sediment by light microscopyOrdered By: Abdirashid Cano on 02-15-2025 Epithelial cells.squamous LM Ql (Urine sed) 5-10 SEEN /hpf 5-10 [facility] Total proteinOrdered By: Ronak Cano on 02-15-2025 Protein [Mass/Vol] 6.8 g/dL 5.9-8.4 [facility] Urinalysis, Completeon 02-15 EPI,SQUAMOUS 5-10 SEEN Normal 5-10 [facility] Comment on above: Order Comment: MELVIN TER SPECIMEN Performed By: #### L 400.0001 ####[facility] [address] [place], [address] RBC 0-5 SEEN Normal 0-5 [facility] Comment on above: Order Comment: MELVIN TER SPECIMEN Performed By: #### L 400.0001 ####[facility] [address] [place], [address] WBC 0-5 SEEN Normal 0-5 [facility] Comment on above: Order Comment: MELVIN TER SPECIMEN Performed By: #### L 400.0001 ####[facility] [address] [place], [address] BACTERIA 0 SEEN Normal None Seen [facility] Comment on above: Order Comment: MELVIN TER SPECIMEN Performed By: #### L 400.0001 ####[facility] [address] [place], [address] Mucus Ql (Urine sed) 0 SEEN Normal [facility] Comment on above: Order Comment: MELVIN TER SPECIMEN Performed By: #### L 400.0001 ####[facility] [address] [place], [address] Urine clarityOrdered By: Ronak Cano on 02-15-2025 Clarity (U) Clear Clear [facility] Urine color determinationOrd ered By: Abdirashid Cano on 02-15-2025 Color (U) Straw Yellow [facility] Urine glucose detectionOrder ed By: Abdirashid Cano on 02-15-2025 Glucose Ql (U) Normal mg/dl Normal [facility] Urine leukocyte esterase det ection by dipstickOrdered By: Abdirashid Cano on 02-15-2025 Leukocyte esterase Test strip Ql (U) Negative Negative [facility] Urine pHOrdered By: Abdirashid walden on 02-15-2025 pH (U) 6.5 [pH] 5.0 - 8.0 [facility] Urine sediment bacteria coun t by microscopy (number/high power field)Ordered By: Abdirashid Cano on 02-15-2025 Bacteria LM.HPF (Urine sed) [#/Area] 0 /[HPF] None Seen [facility] Urine specific gravity measu rementOrdered By: Abdirashid Cano on 02-15-2025 Specific gravity (U) [Rel density] 1.010 1.002-1.030 [facility] Urine urobilinogen measureme ntOrdered By: Abdirashid Cano on 02-15-2025 Urobilinogen Ql (U) 8 mg/dl High Normal [facility] White blood cell (WBC) count Ordered By: Abdirashid Cano on 02-15-2025 WBC (Bld) [#/Vol] 9.1 10*3/uL 4.4-11.0 [facility] White blood cell countOrdere d By: Abdirashid Cano on 02-15-2025 White blood cell count 0-5 SEEN /hpf 0-5 [facility] CBC W/Diff, Automatedon 05-0 Absolute Neut Normal 2.0-7.7 [facility] Comment on above: Result Comment: WAS UTO, WILL COME BACK ANOTHER DAY Performed By: #### L 100.0100, L500.4050, L500.4100 ####[facility] [address] [place], [address] HCT Normal 37-47 [facility] Comment on above: Result Comment: WAS UTO, WILL COME BACK ANOTHER DAY Performed By: #### L 100.0100, L500.4050, L500.4100 ####[facility] [address] [place], [address] HGB Normal 12.0-15.0 [facility] Comment on above: Result Comment: WAS UTO, WILL COME BACK ANOTHER DAY Performed By: #### L 100.0100, L500.4050, L500.4100 ####[facility] [address] [place], [address] MCH Normal 27.0-32.0 [facility] Comment on above: Result Comment: WAS UTO, WILL COME BACK ANOTHER DAY Performed By: #### L 100.0100, L500.4050, L500.4100 ####[facility] [address] [place], [address] MCHC Normal 32-36 [facility] Comment on above: Result Comment: WAS UTO, WILL COME BACK ANOTHER DAY Performed By: #### L 100.0100, L500.4050, L500.4100 ####[facility] [address] [place], [address] MCV Normal 81-99 [facility] Comment on above: Result Comment: WAS UTO, WILL COME BACK ANOTHER DAY Performed By: #### L 100.0100, L500.4050, L500.4100 ####[facility] [address] [place], [address] NEUT% Normal 47-70 [facility] Comment on above: Result Comment: WAS UTO, WILL COME BACK ANOTHER DAY Performed By: #### L 100.0100, L500.4050, L500.4100 ####[facility] [address] [place], [address] PLT Normal 150-450 [facility] Comment on above: Result Comment: WAS UTO, WILL COME BACK ANOTHER DAY Performed By: #### L 100.0100, L500.4050, L500.4100 ####[facility] [address] [place], [address] RBC Normal 4.2-5.4 [facility] Comment on above: Result Comment: WAS UTO, WILL COME BACK ANOTHER DAY Performed By: #### L 100.0100, L500.4050, L500.4100 ####[facility] [address] [place] [place], [address] RDW CV Normal 11.6-14.6 [facility] Comment on above: Result Comment: WAS UTO, WILL COME BACK ANOTHER DAY Performed By: #### L 100.0100, L500.4050, L500.4100 ####[facility] [address] [place], [address] RDW SD Normal 35.1-43.9 [facility] Comment on above: Result Comment: WAS UTO, WILL COME BACK ANOTHER DAY Performed By: #### L 100.0100, L500.4050, L500.4100 ####[facility] [address] [place], [address] WBC Normal 4.4-11.0 [facility] Comment on above: Result Comment: WAS UTO, WILL COME BACK ANOTHER DAY Performed By: #### L 100.0100, L500.4050, L500.4100 ####[facility] [address] [place], [address] Comprehensive Metabolic Prof ilon 12-27-2024 ALB Normal 3.4-4.8 [facility] Comment on above: Result Comment: WAS UTO, WILL COME BACK ANOTHER DAY Performed By: #### L 100.0100, L500.4050, L500.4100 ####[facility] [address] [place], [address] ALK PHOS Normal 35-104 [facility] Comment on above: Result Comment: WAS UTO, WILL COME BACK ANOTHER DAY Performed By: #### L 100.0100, L500.4050, L500.4100 ####[facility] [address] [place], [address] ALT Normal <=34 [facility] Comment on above: Result Comment: WAS UTO, WILL COME BACK ANOTHER DAY Performed By: #### L 100.0100, L500.4050, L500.4100 ####[facility] [address] [place], [address] AST Normal <=31 [facility] Comment on above: Result Comment: WAS UTO, WILL COME BACK ANOTHER DAY Performed By: #### L 100.0100, L500.4050, L500.4100 ####[facility] [address] [place], [address] BUN Normal 4-19 [facility] Comment on above: Result Comment: WAS UTO, WILL COME BACK ANOTHER DAY Performed By: #### L 100.0100, L500.4050, L500.4100 ####[facility] [address] [place], [address] BUN/CRE Normal 10-20 [facility] Comment on above: Result Comment: WAS UTO, WILL COME BACK ANOTHER DAY Performed By: #### L 100.0100, L500.4050, L500.4100 ####[facility] [address] [place], [address] Calcium Normal 7.6-11.0 [facility] Comment on above: Result Comment: WAS UTO, WILL COME BACK ANOTHER DAY Performed By: #### L 100.0100, L500.4050, L500.4100 ####[facility] [address] [place], [address] CL Normal 98-108 [facility] Comment on above: Result Comment: WAS UTO, WILL COME BACK ANOTHER DAY Performed By: #### L 100.0100, L500.4050, L500.4100 ####[facility] [address] [place], [address] CO2 Normal 21.0-32.0 [facility] Comment on above: Result Comment: WAS UTO, WILL COME BACK ANOTHER DAY Performed By: #### L 100.0100, L500.4050, L500.4100 ####[facility] [address] [place], [address] CREAT,SERUM Normal 0.70-1.20 [facility] Comment on above: Result Comment: WAS UTO, WILL COME BACK ANOTHER DAY Performed By: #### L 100.0100, L500.4050, L500.4100 ####[facility] [address] [place], [address] eGFR Normal >60 [facility] Comment on above: Result Comment: WAS UTO, WILL COME BACK ANOTHER DAY Performed By: #### L 100.0100, L500.4050, L500.4100 ####[facility] [address] [place], [address] GAP Normal 5-15 [facility] Comment on above: Result Comment: WAS UTO, WILL COME BACK ANOTHER DAY Performed By: #### L 100.0100, L500.4050, L500.4100 ####[facility] [address] [place], [address] GLU Normal 70-99 [facility] Comment on above: Result Comment: WAS UTO, WILL COME BACK ANOTHER DAY Performed By: #### L 100.0100, L500.4050, L500.4100 ####[facility] [address] [place], [address] Potassium Normal 3.3-5.1 [facility] Comment on above: Result Comment: WAS UTO, WILL COME BACK ANOTHER DAY Performed By: #### L 100.0100, L500.4050, L500.4100 ####[facility] [address] [place], [address] T BILI Normal 0.00-1.30 [facility] Comment on above: Result Comment: WAS UTO, WILL COME BACK ANOTHER DAY Performed By: #### L 100.0100, L500.4050, L500.4100 ####[facility] [address] [place], [address] T PROT Normal 5.9-8.4 [facility] Comment on above: Result Comment: WAS UTO, WILL COME BACK ANOTHER DAY Performed By: #### L 100.0100, L500.4050, L500.4100 ####[facility] [address] [place], [address] Comprehensive Metabolic Profil Normal 133-145 [facility] Comment on above: Result Comment: WAS UTO, WILL COME BACK ANOTHER DAY Performed By: #### L 100.0100, L500.4050, L500.4100 ####[facility] [address] [place], [address] Lipid Profileon 12-27-2024 CHOL Normal <=200 [facility] Comment on above: Result Comment: WAS UTO, WILL COME BACK ANOTHER DAY Performed By: #### L 100.0100, L500.4050, L500.4100 ####[facility] [address] [place], [address] CHOL:HDL Normal [facility] Comment on above: Result Comment: WAS UTO, WILL COME BACK ANOTHER DAY Performed By: #### L 100.0100, L500.4050, L500.4100 ####[facility] [address] [place], [address] CLDL Normal [facility] Comment on above: Result Comment: WAS UTO, WILL COME BACK ANOTHER DAY Performed By: #### L 100.0100, L500.4050, L500.4100 ####[facility] [address] [place], [address] HDL Normal [facility] Comment on above: Result Comment: WAS UTO, WILL COME BACK ANOTHER DAY Performed By: #### L 100.0100, L500.4050, L500.4100 ####[facility] [address] [place], [address] TRIG Normal [facility] Comment on above: Result Comment: WAS UTO, WILL COME BACK ANOTHER DAY Performed By: #### L 100.0100, L500.4050, L500.4100 ####[facility] [address] [place], [address] VLDL Normal 5-40 [facility] Comment on above: Result Comment: WAS UTO, WILL COME BACK ANOTHER DAY Performed By: #### L 100.0100, L500.4050, L500.4100 ####[facility] [address] [place], [address] Absolute lymphocyte countOrd ered By: Candelario Santana on 09-25-2024 Lymphocytes Auto (Unsp spec) [#/Vol] 2.89 10*3/uL 0.83-4.51 [facility] Absolute neutrophil countOrd ered By: Candelario Santana on 09-25-2024 Neutrophils (Bld) [#/Vol] 4.6 10*3/uL 2.0-7.7 [facility] Albumin to globulin ratioOrd ered By: Candelario Santana on 09-25-2024 Albumin/Globulin [Mass ratio] 0.7 {ratio} Low 0.9-2.4 [facility] Automated lymphocyte count a s percentage of total leukocytesOrdered By: Candelario Santana on 09-25-2024 Lymphocytes/100 WBC Auto (Unsp spec) 33.8 % 19-41 [facility] Basophil percentageOrdered B y: Candelario Santana on 09-25-2024 Basophils/100 WBC (Bld) 0.5 % 0-1 [facility] Bilirubin, totalOrdered By: Candelario Santana on 02-03-2025 Bilirubin [Mass/Vol] 1.10 mg/dL High 0.20-1.00 [facility] Comment on above: For patients on eltr ombopag therapy, use of [employer] TBIL is not recommended. Blood urea nitrogen (BUN)/cr eatinine ratioOrdered By: Candelario Santana on 09-25-2024 Urea nitrogen/Creatinine [Mass ratio] 17.2 mg/mg 10-20 [facility] CBC W/Diff, Automatedon Absolute Lymph 2.89 X10 3/uL Normal 0.83-4.51 [facility] Comment on above: Performed By: #### L 100.0100, L502.0250, L501.9520, L506.1000, L500.4100, L500.4050, L501.9985 ####[facility] [address] [place], [address] Absolute Neut 4.6 X10 3/uL Normal 2.0-7.7 [facility] Comment on above: Performed By: #### L 100.0100, L502.0250, L501.9520, L506.1000, L500.4100, L500.4050, L501.9985 ####[facility] [address] [place], [address] Basophils/100 WBC (Bld) 0.5 % Normal 0-1 [facility] Comment on above: Performed By: #### L 100.0100, L502.0250, L501.9520, L506.1000, L500.4100, L500.4050, L501.9985 ####[facility] [address] [place], [address] Eosinophils/100 WBC (Bld) 2.6 % Normal 0-5 [facility] Comment on above: Performed By: #### L 100.0100, L502.0250, L501.9520, L506.1000, L500.4100, L500.4050, L501.9985 ####[facility] [address] [place], [address] Erythrocyte distribution width (RBC) [Ratio] 13.6 % Normal 11.6-14.6 [facility] Comment on above: Performed By: #### L 100.0100, L502.0250, L501.9520, L506.1000, L500.4100, L500.4050, L501.9985 ####[facility] [address] [place], [address] Hematocrit (Bld) [Volume fraction] 31.9 % Low 37-47 [facility] Comment on above: Performed By: #### L 100.0100, L502.0250, L501.9520, L506.1000, L500.4100, L500.4050, L501.9985 ####[facility] [address] [place], [address] Hemoglobin (Bld) [Mass/Vol] 11.4 g/dL Low 12.0-15.0 [facility] Comment on above: Performed By: #### L 100.0100, L502.0250, L501.9520, L506.1000, L500.4100, L500.4050, L501.9985 ####[facility] [address] [place], [address] IG% 0.200 Normal 0.0-0.9 [facility] Comment on above: Result Comment: IG% - Immature Granulocytes (promyelocytes, myelocytes andmetamyelocytes) > 1% indicates that a LEFT SHIFT is Present. Performed By: #### L 100.0100, L502.0250, L501.9520, L506.1000, L500.4100, L500.4050, L501.9985 ####[facility] [address] [place], [address] Lymphocytes/100 WBC (Bld) 33.8 % Normal 19-41 [facility] Comment on above: Performed By: #### L 100.0100, L502.0250, L501.9520, L506.1000, L500.4100, L500.4050, L501.9985 ####[facility] [address] [place], [address] MCH (RBC) [Entitic mass] 31.6 pg Normal 27.0-32.0 [facility] Comment on above: Performed By: #### L 100.0100, L502.0250, L501.9520, L506.1000, L500.4100, L500.4050, L501.9985 ####[facility] [address] [place], [address] MCHC (RBC) [Mass/Vol] 35.7 g/dL Normal 32-36 [facility] Comment on above: Performed By: #### L 100.0100, L502.0250, L501.9520, L506.1000, L500.4100, L500.4050, L501.9985 ####[facility] [address] [place], [address] MCV (RBC) [Entitic vol] 88.4 fL Normal 81-99 [facility] Comment on above: Performed By: #### L 100.0100, L502.0250, L501.9520, L506.1000, L500.4100, L500.4050, L501.9985 ####[facility] [address] [place], [address] Monocytes/100 WBC (Bld) 9.6 % Normal 0-10 [facility] Comment on above: Performed By: #### L 100.0100, L502.0250, L501.9520, L506.1000, L500.4100, L500.4050, L501.9985 ####[facility] [address] [place], [address] Neutrophils/100 WBC (Bld) 53.3 % Normal 47-70 [facility] Comment on above: Performed By: #### L 100.0100, L502.0250, L501.9520, L506.1000, L500.4100, L500.4050, L501.9985 ####[facility] [address] [place], [address] Nucleated RBC (Bld) [#/Vol] 0 10*3/uL Normal 0-5 [facility] Comment on above: Performed By: #### L 100.0100, L502.0250, L501.9520, L506.1000, L500.4100, L500.4050, L501.9985 ####[facility] [address] [place], [address] Platelet mean volume (Bld) [Entitic vol] 10.0 fL Normal 6.2-12.0 [facility] Comment on above: Performed By: #### L 100.0100, L502.0250, L501.9520, L506.1000, L500.4100, L500.4050, L501.9985 ####[facility] [address] [place], [address] Platelets (Bld) [#/Vol] 225 10*3/uL Normal 150-450 [facility] Comment on above: Performed By: #### L 100.0100, L502.0250, L501.9520, L506.1000, L500.4100, L500.4050, L501.9985 ####[facility] [address] [place], [address] RBC (Bld) [#/Vol] 3.61 10*6/uL Low 4.2-5.4 [facility] Comment on above: Performed By: #### L 100.0100, L502.0250, L501.9520, L506.1000, L500.4100, L500.4050, L501.9985 ####[facility] [address] [place], [address] RDW SD 42.6 fl Normal 35.1-43.9 [facility] Comment on above: Performed By: #### L 100.0100, L502.0250, L501.9520, L506.1000, L500.4100, L500.4050, L501.9985 ####[facility] [address] [place], [address] WBC (Bld) [#/Vol] 8.6 10*3/uL Normal 4.4-11.0 [facility] Comment on above: Performed By: #### L 100.0100, L502.0250, L501.9520, L506.1000, L500.4100, L500.4050, L501.9985 ####[facility] [address] [place], [place], [address] Carbon dioxide measurementOr dered By: Candelario Santana on 09-25-2024 CO2 [Moles/Vol] 24.0 mmol/L 21.0-32.0 [facility] Chloride measurementOrdered By: Candelario Santana on 09-25-2024 Chloride [Moles/Vol] 104 mmol/L 98-107 [facility] Comprehensive Metabolic Prof ilon 09-25-2024 Albumin [Mass/Vol] 3.2 g/dL Normal 3.2-5.0 [facility] Comment on above: Performed By: #### L 100.0100, L502.0250, L501.9520, L506.1000, L500.4100, L500.4050, L501.9985 ####[facility] [address] [place], [place], [id number] Albumin/Globulin [Mass ratio] 0.7 {ratio} Low 0.9-2.4 [facility] Comment on above: Performed By: #### L 100.0100, L502.0250, L501.9520, L506.1000, L500.4100, L500.4050, L501.9985 ####[facility] [address] [place], [address] ALK P 89 U/L Normal 45-117 [facility] Comment on above: Performed By: #### L 100.0100, L502.0250, L501.9520, L506.1000, L500.4100, L500.4050, L501.9985 ####[facility] [address] [place], [address] ALT [Catalytic activity/Vol] 18 U/L Normal 13-56 [facility] Comment on above: Performed By: #### L 100.0100, L502.0250, L501.9520, L506.1000, L500.4100, L500.4050, L501.9985 ####[facility] [address] [place], [address] AST [Catalytic activity/Vol] 26 U/L Normal 15-37 [facility] Comment on above: Performed By: #### L 100.0100, L502.0250, L501.9520, L506.1000, L500.4100, L500.4050, L501.9985 ####[facility] [address] [place], [address] Bilirubin [Mass/Vol] 1.10 mg/dL High 0.20-1.00 [facility] Comment on above: Result Comment: For patients on eltrombopag therapy, use of [employer] TBIL is not recommended. Performed By: #### L 100.0100, L502.0250, L501.9520, L506.1000, L500.4100, L500.4050, L501.9985 ####[facility] [address] [place], [address] BUN/CRE 17.2 RATIO Normal 10-20 [facility] Comment on above: Performed By: #### L 100.0100, L502.0250, L501.9520, L506.1000, L500.4100, L500.4050, L501.9985 ####[facility] [address] [place], [address] CA,Total 9.0 mg/dL Normal 8.5-10.1 [facility] Comment on above: Performed By: #### L 100.0100, L502.0250, L501.9520, L506.1000, L500.4100, L500.4050, L501.9985 ####[facility] [address] [place], [address] Chloride [Moles/Vol] 104 mmol/L Normal 98-107 [facility] Comment on above: Performed By: #### L 100.0100, L502.0250, L501.9520, L506.1000, L500.4100, L500.4050, L501.9985 ####[facility] [address] [place], [address] CO2 [Moles/Vol] 24.0 mmol/L Normal 21.0-32.0 [facility] Comment on above: Performed By: #### L 100.0100, L502.0250, L501.9520, L506.1000, L500.4100, L500.4050, L501.9985 ####[facility] [address] [place], [address] Creatinine [Mass/Vol] 0.87 mg/dL Normal 0.55-1.02 [facility] Comment on above: Result Comment: The validity of the calculated GFR GFRAA in patients over70 years has not been determined. Clinical correlation isessential. Performed By: #### L 100.0100, L502.0250, L501.9520, L506.1000, L500.4100, L500.4050, L501.9985 ####[facility] [address] [place], [address] EST GFR - AA 81 mL/min Normal >60 [facility] Comment on above: Result Comment: Afri can Croatian GFR Calc Performed By: #### L 100.0100, L502.0250, L501.9520, L506.1000, L500.4100, L500.4050, L501.9985 ####[facility] [address] [place], [address] GAP 9 Normal 5-15 [facility] Comment on above: Performed By: #### L 100.0100, L502.0250, L501.9520, L506.1000, L500.4100, L500.4050, L501.9985 ####[facility] [address] [place], [address] GFR/1.73 sq M.predicted among non-blacks MDRD (S/P/Bld) [Vol rate/Area] 67 mL/min/{1.73_m2} Normal >60 [facility] Comment on above: Result Comment: Non- GFR Calc Performed By: #### L 100.0100, L502.0250, L501.9520, L506.1000, L500.4100, L500.4050, L501.9985 ####[facility] [address] [place], [place], [phone]) Globulin (S) [Mass/Vol] 4.3 g/dL High 2.2-4.2 [facility] Comment on above: Performed By: #### L 100.0100, L502.0250, L501.9520, L506.1000, L500.4100, L500.4050, L501.9985 ####[facility] [address] [place], [address] Glucose [Mass/Vol] 176 mg/dL High 74-106 [facility] Comment on above: Result Comment: Fast ing Glucose result greater than or equal to 126 mg/dLsuggests DIABETES MELLITUS per A.D.A. criteria. Performed By: #### L 100.0100, L502.0250, L501.9520, L506.1000, L500.4100, L500.4050, L501.9985 ####[facility] [address] [place], [address] Potassium [Moles/Vol] 3.3 mmol/L Low 3.5-5.1 [facility] Comment on above: Performed By: #### L 100.0100, L502.0250, L501.9520, L506.1000, L500.4100, L500.4050, L501.9985 ####[facility] [address] [place], [address] Sodium [Moles/Vol] 137 mmol/L Normal 136-145 [facility] Comment on above: Performed By: #### L 100.0100, L502.0250, L501.9520, L506.1000, L500.4100, L500.4050, L501.9985 ####[facility] [address] [place], [address] T PROT 7.5 g/dL Normal 6.4-8.2 [facility] Comment on above: Performed By: #### L 100.0100, L502.0250, L501.9520, L506.1000, L500.4100, L500.4050, L501.9985 ####[facility] [address] [place], [address] Urea nitrogen [Mass/Vol] 15 mg/dL Normal 7-18 [facility] Comment on above: Performed By: #### L 100.0100, L502.0250, L501.9520, L506.1000, L500.4100, L500.4050, L501.9985 ####[facility] [address] [place], [place], [id number] Eosinophil percentageOrdered By: [facility] on 09-25-2024 Eosinophils/100 WBC (Bld) 2.6 % 0-5 [facility] Erythrocyte distribution wid th ratioOrdered By: [facility] on 09-25-2024 Erythrocyte distribution width (RBC) [Ratio] 13.6 % 11.6-14.6 [facility] Erythrocyte distribution wid th standard deviationOrdered By: [facility] on 09-25-2024 Erythrocyte distribution width (RBC) [Ratio] 42.6 fl 35.1-43.9 [facility] Glomerular filtration rate ( GFR) estimationOrdered By: [facility] on 09-25-2024 GFR/1.73 sq M.predicted among non-blacks MDRD (S/P/Bld) [Vol rate/Area] 67 mL/min/{1.73_m2} >60 [facility] Comment on above: Non- GFR Calc Glucose measurementOrdered B y: Candelario Santana on 09-25-2024 Glucose [Mass/Vol] 176 mg/dL High 74-106 [facility] Comment on above: Fasting Glucose resu lt greater than or equal to 126 mg/dL suggests DIABETES MELLITUS per A.D.A. criteria. Hematocrit Auto (Bld) [Volum e fraction]Ordered By: Candelario Max on 09-25-2024 Hematocrit (Bld) [Volume fraction] 31.9 % Low 37-47 [facility] Hemoglobin A1c percentageOrd ered By: [facility] 09-25-2024 HbA1c (Bld) [Mass fraction] 4.7 % Normal 3.8-5.6 [facility] Comment on above: Normal < 5.7 % Predi abetic 5.7 - 6.4 % Diabetic >or= 6.5 % Please note range changes. Result Comment: Norm al < 5.7 % Prediabetic 5.7 - 6.4 % Diabetic >or= 6.5 % Please note range changes. Performed By: #### L 100.0100, L502.0250, L501.9520, L506.1000, L500.4100, L500.4050, L501.9985 ####[facility] [address] [place], [address] Hemoglobin measurementOrdere d By: Candelario Santana on 09-25-2024 Hemoglobin (Bld) [Mass/Vol] 11.4 g/dL Low 12.0-15.0 [facility] High density lipoprotein (HD L) measurementOrdered By: Candelario Santana on 09-25-2024 Cholesterol in HDL [Mass/Vol] 50 mg/dL >40 [facility] Comment on above: The drugs N-Acetylcy steine and Metamizole may falsely depress this assay. Reference Range HDL <40 mg/dL Low HDL Cholesterol HDL >or= 60 mg/dL High HDL Cholesterol Immature granulocytes/100 WB C Auto (Bld)Ordered By: Candelario Santana on 09-25-2024 Immature granulocytes/100 WBC (Bld) 0.200 % 0.0-0.9 [facility] Comment on above: IG% - Immature Granu locytes (promyelocytes, myelocytes and metamyelocytes) > 1% indicates that a LEFT SHIFT is Present. Laboratory - Chemistry and C hemistry - challengeOrdered By: Candelario Santana on 09-25-2024 AST [Catalytic activity/Vol] 26 U/L 15-37 [facility] Lipid Profileon 09-25-2024 Cholesterol [Mass/Vol] 158 mg/dL Normal 200 [facility] Comment on above: Result Comment: <200 mg/dL Desirable 200-240 mg/dL Borderline >240 mg/dL High Risk Performed By: #### L 100.0100, L502.0250, L501.9520, L506.1000, L500.4100, L500.4050, L501.9985 ####[facility] [address] [place], [place], [id number] Cholesterol in HDL [Mass/Vol] 50 mg/dL Normal [facility] Comment on above: Result Comment: The drugs N-Acetylcysteine and Metamizole may falselydepress this assay. Reference Range HDL <40 mg/dL Low HDL Cholesterol HDL >or= 60 mg/dL High HDL Cholesterol Performed By: #### L 100.0100, L502.0250, L501.9520, L506.1000, L500.4100, L500.4050, L501.9985 ####[facility] [address] [place], [place], [phone]) Cholesterol in LDL [Mass/Vol] 85 mg/dL Normal 0-130 [facility] Comment on above: Performed By: #### L 100.0100, L502.0250, L501.9520, L506.1000, L500.4100, L500.4050, L501.9985 ####[facility] [address] [place], [address] Cholesterol in VLDL [Mass/Vol] 23 mg/dL Normal 5-40 [facility] Comment on above: Performed By: #### L 100.0100, L502.0250, L501.9520, L506.1000, L500.4100, L500.4050, L501.9985 ####[facility] [address] [place], [address] Triglyceride [Mass/Vol] 114 mg/dL Normal [facility] Comment on above: Result Comment: The drugs N-Acetylcysteine and Metamizole may falselydepress this assay.Serum Triglycerides Reference Interval Normal <150 mg/dL Borderline high 150 - 199 mg/dL High 200 - 499 mg/dL Very High > or = 500 mg/dL Performed By: #### L 100.0100, L502.0250, L501.9520, L506.1000, L500.4100, L500.4050, L501.9985 ####[facility] [address] [place], [address] Low density lipoprotein (LDL ) cholesterol measurementOrdered By: Candelario Santana on 09-25-2024 Cholesterol in LDL [Mass/Vol] 85 mg/dL 0-130 [facility] MCV (mean corpuscular volume ) determinationOrdered By: Candelario Santana on 09-25-2024 MCV (RBC) [Entitic vol] 88.4 fL 81-99 [facility] Mean corpuscular hemoglobin (MCH) determinationOrdered By: Candelario Santana on 09-25-2024 MCH (RBC) [Entitic mass] 31.6 pg 27.0-32.0 [facility] Mean corpuscular hemoglobin concentration (MCHC) determinationOrdered By: Candelario Santana on 09-25-2024 MCHC (RBC) [Mass/Vol] 35.7 g/dL 32-36 [facility] Mean platelet volume determi nationOrdered By: Candelario Santana on 09-25-2024 Platelet mean volume (Bld) [Entitic vol] 10.0 fL 6.2-12.0 [facility] Microalb:Creat Ratio,Random URon 09-25-2024 MALB:CRE Normal <30 mg/g CRE [facility] Comment on above: Result Comment: UTO Performed By: #### L 100.0100, L502.0250, L501.9520, L506.1000, L500.4100, L500.4050, L501.9985 ####[facility] [address] [facility] [place], [place], [id number] MICROALBUMIN,UR Normal NO RANGE EST. [facility] Comment on above: Result Comment: UTO Performed By: #### L 100.0100, L502.0250, L501.9520, L506.1000, L500.4100, L500.4050, L501.9985 ####[facility] [address] [place], [place], [id number] Monocyte percentageOrdered B y: Candelario Santana on 09-25-2024 Monocytes/100 WBC (Bld) 9.6 % 0-10 [facility] Neutrophil percentageOrdered By: Candelario Santana on 09-25-2024 Neutrophils/100 WBC (Bld) 53.3 % 47-70 [facility] Nucleated red blood cell per centageOrdered By: Candelario Santana on 09-25-2024 Nucleated RBC/100 WBC (Bld) [Ratio] 0 % 0-5 [facility] Platelet countOrdered By: Ben Santana on 09-25-2024 Platelets (Bld) [#/Vol] 225 10*3/uL 150-450 [facility] Potassium measurementOrdered By: Candelario Santana on 09-25-2024 Potassium [Moles/Vol] 3.3 mmol/L Low 3.5-5.1 [facility] RBC Auto (Bld) [#/Vol]Ordere d By: Candelario Santana on 09-25-2024 RBC (Bld) [#/Vol] 3.61 10*6/uL Low 4.2-5.4 [facility] Serum anion gap measurementO rdered By: Candelario Santana on 09-25-2024 Anion gap [Moles/Vol] 9 mmol/L 5-15 [facility] Serum globulin measurementOr dered By: Candelario Santana on 09-25-2024 Globulin (S) [Mass/Vol] 4.3 g/dL High 2.2-4.2 [facility] Serum or plasma alanine cornejo otransferase (ALT) measurementOrdered By: Candelario Santana 09-25-2024 ALT [Catalytic activity/Vol] 18 U/L 13-56 [facility] Serum or plasma albumin sabino urement (mass/volume)Ordered By: Candelario Santana 09-25-2024 Albumin [Mass/Vol] 3.2 g/dL 3.2-5.0 [facility] Serum or plasma alkaline shaista sphatase measurementOrdered By: Candelario Santana 09-25-2024 ALP [Catalytic activity/Vol] 89 U/L 45-117 [facility] Serum or plasma calcium sabino urement (mass/volume)Ordered By: Candelario Santana 09-25-2024 Calcium [Mass/Vol] 9.0 mg/dL 8.5-10.1 [facility] Serum or plasma cholesterol measurement (mass/volume)Ordered By: Candleario Santana 09-25-2024 Cholesterol [Mass/Vol] 158 mg/dL <200 [facility] Comment on above: <200 mg/dL Desirable 200-240 mg/dL Borderline >240 mg/dL High Risk Serum or plasma creatinine m easurement (mass/volume)Ordered By: Candelario Santana on 09-25-2024 Creatinine [Mass/Vol] 0.87 mg/dL 0.55-1.02 [facility] Comment on above: The validity of the calculated GFR & GFRAA in patients over 70 years has not been determined. Clinical correlation is essential. Serum or plasma thyroid stim ulating hormone (TSH) measurement (units/volume)Ordered By: Candelario Santana on 09-25-2024 TSH Qn 5.250 uIU/mL High 0.358-3.740 [facility] Serum or plasma urea nitroge n measurement (mass/volume)Ordered By: Candelario Santana on 09-25-2024 Urea nitrogen [Mass/Vol] 15 mg/dL 7-18 [facility] Sodium levelOrdered By: Candelario Santana on 09-25-2024 Sodium [Moles/Vol] 137 mmol/L 136-145 [facility] Thyroid Stim Hormone (TSH)on 09-25-2024 TSH 5.250 uIU/mL High 0.358-3.740 [facility] Comment on above: Performed By: #### L 100.0100, L502.0250, L501.9520, L506.1000, L500.4100, L500.4050, L501.9985 ####[facility] [address] [place], [address] Total proteinOrdered By: Candelario Santana on 09-25-2024 Protein [Mass/Vol] 7.5 g/dL 6.4-8.2 [facility] Triglycerides measurementOrd ered By: Candelario Santana on 09-25-2024 Triglyceride [Mass/Vol] 114 mg/dL <199 [facility] Comment on above: The drugs N-Acetylcy steine and Metamizole may falsely depress this assay.Serum Triglycerides Reference Interval Normal <150 mg/dL Borderline high 150 - 199 mg/dL High 200 - 499 mg/dL Very High > or = 500 mg/dL Very low density lipoprotein (VLDL) cholesterol measurementOrdered By: Candelario Santana on 09-25-2024 Very low density lipoprotein (VLDL) cholesterol measurement 23 mg/dL 5-40 [facility] Vitamin D,25 Hydroxyon 09-25 Vitamin D 25-OH 26.7 ng/mL Normal [facility] Comment on above: Result Comment: Jojo min D 25(OH) Status Range Deficiency <20 ng/mL (50nmol/L) Insufficiency 20 - 30 ng/mL (50 - 75 nmol/L) Sufficiency 30 - 100 ng/mL (75 - 250 nmol/L) Toxicity >100 ng/mL (>250 nmol/L) Performed By: #### L 100.0100, L502.0250, L501.9520, L506.1000, L500.4100, L500.4050, L501.9985 ####[facility] [address] [place], [address] White blood cell (WBC) count Ordered By: Candelario Santana on 09-25-2024 WBC (Bld) [#/Vol] 8.6 10*3/uL 4.4-11.0 [facility] CBC W/Diff, Automatedon 10-3 -2023 Absolute Lymph 2.31 X10 3/uL Normal 0.83-4.51 [facility] Comment on above: Performed By: #### L 500.4100, L501.9520, L506.1000, L100.0100, L501.9985, L500.4050 ####[facility] [address] [place], [address] Absolute Neut 2.0 X10 3/uL Normal 2.0-7.7 [facility] Comment on above: Performed By: #### L 500.4100, L501.9520, L506.1000, L100.0100, L501.9985, L500.4050 ####[facility] [address] [place], [address] Basophils/100 WBC (Bld) 0.8 % Normal 0-1 [facility] Comment on above: Performed By: #### L 500.4100, L501.9520, L506.1000, L100.0100, L501.9985, L500.4050 ####[facility] [address] [place], [address] Eosinophils/100 WBC (Bld) 3.4 % Normal 0-5 [facility] Comment on above: Performed By: #### L 500.4100, L501.9520, L506.1000, L100.0100, L501.9985, L500.4050 ####[facility] [address] [place], [address] Erythrocyte distribution width (RBC) [Ratio] 14.0 % Normal 11.6-14.6 [facility] Comment on above: Performed By: #### L 500.4100, L501.9520, L506.1000, L100.0100, L501.9985, L500.4050 ####[facility] [address] [place], [address] Hematocrit (Bld) [Volume fraction] 31.8 % Low 37-47 [facility] Comment on above: Performed By: #### L 500.4100, L501.9520, L506.1000, L100.0100, L501.9985, L500.4050 ####[facility] [address] [place], [address] Hemoglobin (Bld) [Mass/Vol] 10.9 g/dL Low 12.0-15.0 [facility] Comment on above: Performed By: #### L 500.4100, L501.9520, L506.1000, L100.0100, L501.9985, L500.4050 ####[facility] [address] [place], [address] IG% 0.200 Normal 0.0-0.9 [facility] Comment on above: Result Comment: IG% - Immature Granulocytes (promyelocytes, myelocytes andmetamyelocytes) > 1% indicates that a LEFT SHIFT is Present. Performed By: #### L 500.4100, L501.9520, L506.1000, L100.0100, L501.9985, L500.4050 ####[facility] [address] [place], [address] Lymphocytes/100 WBC (Bld) 45.8 % High 19-41 [facility] Comment on above: Performed By: #### L 500.4100, L501.9520, L506.1000, L100.0100, L501.9985, L500.4050 ####[facility] [address] [place], [address] MCH (RBC) [Entitic mass] 30.8 pg Normal 27.0-32.0 [facility] Comment on above: Performed By: #### L 500.4100, L501.9520, L506.1000, L100.0100, L501.9985, L500.4050 ####[facility] [address] [place], [address] MCHC (RBC) [Mass/Vol] 34.3 g/dL Normal 32-36 [facility] Comment on above: Performed By: #### L 500.4100, L501.9520, L506.1000, L100.0100, L501.9985, L500.4050 ####[facility] [address] [place], [address] MCV (RBC) [Entitic vol] 89.8 fL Normal 81-99 [facility] Comment on above: Performed By: #### L 500.4100, L501.9520, L506.1000, L100.0100, L501.9985, L500.4050 ####[facility] [address] [place], [address] Monocytes/100 WBC (Bld) 9.5 % Normal 0-10 [facility] Comment on above: Performed By: #### L 500.4100, L501.9520, L506.1000, L100.0100, L501.9985, L500.4050 ####[facility] [address] [place], [address] Neutrophils/100 WBC (Bld) 40.3 % Low 47-70 [facility] Comment on above: Performed By: #### L 500.4100, L501.9520, L506.1000, L100.0100, L501.9985, L500.4050 ####[facility] [address] [place], [address] Nucleated RBC (Bld) [#/Vol] 0 10*3/uL Normal 0-5 [facility] Comment on above: Performed By: #### L 500.4100, L501.9520, L506.1000, L100.0100, L501.9985, L500.4050 ####[facility] [address] [place], [address] Platelet mean volume (Bld) [Entitic vol] 9.8 fL Normal 6.2-12.0 [facility] Comment on above: Performed By: #### L 500.4100, L501.9520, L506.1000, L100.0100, L501.9985, L500.4050 ####[facility] [address] [place], [address] Platelets (Bld) [#/Vol] 190 10*3/uL Normal 150-450 [facility] Comment on above: Performed By: #### L 500.4100, L501.9520, L506.1000, L100.0100, L501.9985, L500.4050 ####[facility] [address] [place], [address] RBC (Bld) [#/Vol] 3.54 10*6/uL Low 4.2-5.4 [facility] Comment on above: Performed By: #### L 500.4100, L501.9520, L506.1000, L100.0100, L501.9985, L500.4050 ####[facility] [address] [place], [address] RDW SD 46.0 fl High 35.1-43.9 [facility] Comment on above: Performed By: #### L 500.4100, L501.9520, L506.1000, L100.0100, L501.9985, L500.4050 ####[facility] [address] [place], [address] WBC (Bld) [#/Vol] 5.0 10*3/uL Normal 4.4-11.0 [facility] Comment on above: Performed By: #### L 500.4100, L501.9520, L506.1000, L100.0100, L501.9985, L500.4050 ####[facility] [address] [place], [address] Comprehensive Metabolic Prof ilon 06-21-2024 Albumin [Mass/Vol] 3.1 g/dL Low 3.2-5.0 [facility] Comment on above: Performed By: #### L 500.4100, L501.9520, L506.1000, L100.0100, L501.9985, L500.4050 ####[facility] [address] [place], [address] Albumin/Globulin [Mass ratio] 0.7 {ratio} Low 0.9-2.4 [facility] Comment on above: Performed By: #### L 500.4100, L501.9520, L506.1000, L100.0100, L501.9985, L500.4050 ####[facility] [address] [place], [address] ALK P 76 U/L Normal 45-117 [facility] Comment on above: Performed By: #### L 500.4100, L501.9520, L506.1000, L100.0100, L501.9985, L500.4050 ####[facility] [address] [place], [address] ALT [Catalytic activity/Vol] 15 U/L Normal 13-56 [facility] Comment on above: Performed By: #### L 500.4100, L501.9520, L506.1000, L100.0100, L501.9985, L500.4050 ####[facility] [address] [place], [address] AST [Catalytic activity/Vol] 24 U/L Normal 15-37 [facility] Comment on above: Performed By: #### L 500.4100, L501.9520, L506.1000, L100.0100, L501.9985, L500.4050 ####[facility] [address] [place], [address] Bilirubin [Mass/Vol] 1.40 mg/dL High 0.20-1.00 [facility] Comment on above: Result Comment: For patients on eltrombopag therapy, use of [employer] TBIL is not recommended. Performed By: #### L 500.4100, L501.9520, L506.1000, L100.0100, L501.9985, L500.4050 ####[facility] [address] [place], [address] BUN/CRE 12.6 RATIO Normal 10-20 [facility] Comment on above: Performed By: #### L 500.4100, L501.9520, L506.1000, L100.0100, L501.9985, L500.4050 ####[facility] [address] [place], [address] CA,Total 9.0 mg/dL Normal 8.5-10.1 [facility] Comment on above: Performed By: #### L 500.4100, L501.9520, L506.1000, L100.0100, L501.9985, L500.4050 ####[facility] [address] [place], [address] Chloride [Moles/Vol] 110 mmol/L High 98-107 [facility] Comment on above: Performed By: #### L 500.4100, L501.9520, L506.1000, L100.0100, L501.9985, L500.4050 ####[facility] [address] [place], [address] CO2 [Moles/Vol] 25.0 mmol/L Normal 21.0-32.0 [facility] Comment on above: Performed By: #### L 500.4100, L501.9520, L506.1000, L100.0100, L501.9985, L500.4050 ####[facility] [address] [place], [address] Creatinine [Mass/Vol] 0.64 mg/dL Normal 0.55-1.02 [facility] Comment on above: Result Comment: The validity of the calculated GFR GFRAA in patients over70 years has not been determined. Clinical correlation isessential. Performed By: #### L 500.4100, L501.9520, L506.1000, L100.0100, L501.9985, L500.4050 ####[facility] [address] [place], [address] EST GFR - AA 117 mL/min Normal >60 [facility] Comment on above: Result Comment: Afri can Croatian GFR Calc Performed By: #### L 500.4100, L501.9520, L506.1000, L100.0100, L501.9985, L500.4050 ####[facility] [address] [place], [address] GAP 5 Normal 5-15 [facility] Comment on above: Performed By: #### L 500.4100, L501.9520, L506.1000, L100.0100, L501.9985, L500.4050 ####[facility] [address] [place], [address] GFR/1.73 sq M.predicted among non-blacks MDRD (S/P/Bld) [Vol rate/Area] 96 mL/min/{1.73_m2} Normal >60 [facility] Comment on above: Result Comment: Non- GFR Calc Performed By: #### L 500.4100, L501.9520, L506.1000, L100.0100, L501.9985, L500.4050 ####[facility] [address] [place], [address] Globulin (S) [Mass/Vol] 4.2 g/dL Normal 2.2-4.2 [facility] Comment on above: Performed By: #### L 500.4100, L501.9520, L506.1000, L100.0100, L501.9985, L500.4050 ####[facility] [id number] [place], [address] Glucose [Mass/Vol] 124 mg/dL High 74-106 [facility] Comment on above: Result Comment: Fast ing Glucose result from 100 to 125 mg/dLsuggests IMPAIRED HOMEOSTASIS per A.D.A. criteria. Performed By: #### L 500.4100, L501.9520, L506.1000, L100.0100, L501.9985, L500.4050 ####[facility] [id number] [place], [address] Potassium [Moles/Vol] 4.1 mmol/L Normal 3.5-5.1 [facility] Comment on above: Performed By: #### L 500.4100, L501.9520, L506.1000, L100.0100, L501.9985, L500.4050 ####[facility] [address] [place], [address] Sodium [Moles/Vol] 139 mmol/L Normal 136-145 [facility] Comment on above: Performed By: #### L 500.4100, [id number], L506.1000, L100.0100, L501.9985, L500.4050 ####[facility] [address] [place], [address] T PROT 7.3 g/dL Normal 6.4-8.2 [facility] Comment on above: Performed By: #### L 500.4100, [id number], L506.1000, L100.0100, L501.9985, L500.4050 ####[facility] [address] [place], [address] Urea nitrogen [Mass/Vol] 8 mg/dL Normal 7-18 [facility] Comment on above: Performed By: #### L 500.4100, [id number], L506.1000, L100.0100, L501.9985, L500.4050 ####[facility] [address] [place], [address] Hemoglobin A1con 06-21-2024 HbA1c (Bld) [Mass fraction] 6.9 % High 3.8-5.6 [facility] Comment on above: Result Comment: Norm al < 5.7 % Prediabetic 5.7 - 6.4 % Diabetic >or= 6.5 % Please note range changes. Performed By: #### L 500.4100, [id number], L506.1000, L100.0100, L501.9985, L500.4050 ####[facility] [address] [place], [address] Lipid Profileon 06-21-2024 Cholesterol [Mass/Vol] 156 mg/dL Normal 200 [facility] Comment on above: Result Comment: <200 mg/dL Desirable 200-240 mg/dL Borderline >240 mg/dL High Risk Performed By: #### L 500.4100, L501.9520, L506.1000, L100.0100, L501.9985, L500.4050 ####[facility] [address] [place], [address] Cholesterol in HDL [Mass/Vol] 50 mg/dL Normal [facility] Comment on above: Result Comment: The drugs N-Acetylcysteine and Metamizole may falselydepress this assay. Reference Range HDL <40 mg/dL Low HDL Cholesterol HDL >or= 60 mg/dL High HDL Cholesterol Performed By: #### L 500.4100, [id number], L506.1000, L100.0100, L501.9985, L500.4050 ####[facility] [address] [place], [address] Cholesterol in LDL [Mass/Vol] 88 mg/dL Normal 0-130 [facility] Comment on above: Performed By: #### L 500.4100, [id number], L506.1000, L100.0100, L501.9985, L500.4050 ####[facility] [address] [place], [address] Cholesterol in VLDL [Mass/Vol] 18 mg/dL Normal 5-40 [facility] Comment on above: Performed By: #### L 500.4100, [id number], L506.1000, L100.0100, L501.9985, L500.4050 ####[facility] [address] [place], [address] Triglyceride [Mass/Vol] 90 mg/dL Normal [facility] Comment on above: Result Comment: The drugs N-Acetylcysteine and Metamizole may falselydepress this assay.Serum Triglycerides Reference Interval Normal <150 mg/dL Borderline high 150 - 199 mg/dL High 200 - 499 mg/dL Very High > or = 500 mg/dL Performed By: #### L 500.4100, [id number], L506.1000, L100.0100, L501.9985, L500.4050 ####[facility] [address] [place], [address] Thyroid Stim Hormone (TSH)on 06-21-2024 TSH 1.910 uIU/mL Normal 0.358-3.740 [facility] Comment on above: Performed By: #### L 500.4100, [id number], L506.1000, L100.0100, L501.9985, L500.4050 ####[facility] [address] [place], [address] Vitamin D,25 Hydroxyon 06-21 Vitamin D 25-OH 16.8 ng/mL Normal [facility] Comment on above: Result Comment: Jojo min D 25(OH) Status Range Deficiency <20 ng/mL (50nmol/L) Insufficiency 20 - 30 ng/mL (50 - 75 nmol/L) Sufficiency 30 - 100 ng/mL (75 - 250 nmol/L) Toxicity >100 ng/mL (>250 nmol/L) Performed By: #### L 500.4100, [id number], L506.1000, L100.0100, L501.9985, L500.4050 ####[facility] [address] [place], [place], [id number] Absolute lymphocyte countOrd ered By: Candelario Santana on 12-20-2023 Lymphocytes Auto (Unsp spec) [#/Vol] 2.35 10*3/uL 0.83-4.51 [facility] Automated lymphocyte count a s percentage of total leukocytesOrdered By: Candelario Santana on 12-20-2023 Lymphocytes/100 WBC Auto (Unsp spec) 40.9 % 19-41 [facility] Basophil percentageOrdered B y: Candelario Santana on 12-20-2023 Basophils/100 WBC (Bld) 0.7 % 0-1 [facility] Bilirubin [Mass/Vol] 1.10 mg/dL 0.20-1.00 [facility] Comment on above: For patients on eltr ombopag therapy, use of Dimension Home TBIL is not recommended. Chloride [Moles/Vol] 107 mmol/L 98-107 [facility] Cholesterol [Mass/Vol] 144 mg/dL <200 [facility] Comment on above: <200 mg/dL Desirable 200-240 mg/dL Borderline >240 mg/dL High Risk Eosinophils/100 WBC (Bld) 2.6 % 0-5 [facility] Glucose [Mass/Vol] 284 mg/dL 74-106 [facility] Comment on above: Glucose result great er than or equal to 200 mg/dLsuggests DIABETES MELLITUS per A.D.A. criteria. Hemoglobin (Bld) [Mass/Vol] 10.6 g/dL 12.0-15.0 [facility] Monocytes/100 WBC (Bld) 9.9 % 0-10 [facility] Neutrophils (Bld) [#/Vol] 2.6 10*3/uL 2.0-7.7 [facility] Neutrophils/100 WBC (Bld) 45.7 % 47-70 [facility] Potassium [Moles/Vol] 3.6 mmol/L 3.5-5.1 [facility] Protein [Mass/Vol] 7.3 g/dL 6.4-8.2 [facility] Sodium [Moles/Vol] 137 mmol/L 136-145 [facility] Triglyceride [Mass/Vol] 106 mg/dL <199 [facility] Comment on above: The drugs N-Acetylcy steine and Metamizole may falsely depress this assay.Serum Triglycerides Reference Interval Normal <150 mg/dL Borderline high 150 - 199 mg/dL High 200 - 499 mg/dL Very High > or = 500 mg/dL WBC (Bld) [#/Vol] 5.7 10*3/uL 4.4-11.0 [facility] Determination of erythrocyte mean corpuscular volume (MCV)Ordered By: Candelario Santana on 12-20-2023 MCV (RBC) [Entitic vol] 87.8 fL 81-99 [facility] Erythrocyte distribution wid th ratioOrdered By: Candelario Santana on 12-20-2023 Erythrocyte distribution width (RBC) [Ratio] 13.1 % 11.6-14.6 [facility] Erythrocyte distribution wid th standard deviationOrdered By: Candelario Santana on 12-20-2023 Erythrocyte distribution width (RBC) [Entitic vol] 41.3 fL 35.1-43.9 [facility] Hematocrit Auto (Bld) [Volum e fraction]Ordered By: Candelario Santana on 12-20-2023 Hematocrit (Bld) [Volume fraction] 30.1 % 37-47 [facility] Immature granulocytes/100 WB C Auto (Bld)Ordered By: Candelario Santana on 12-20-2023 Immature granulocytes/100 WBC (Bld) 0.200 % 0.0-0.9 [facility] Comment on above: IG% - Immature Granu locytes (promyelocytes, myelocytes and metamyelocytes) > 1% indicates that a LEFT SHIFT is Present. Laboratory - Chemistry and C hemistry - challengeOrdered By: [facility]23 Albumin/Globulin [Mass ratio] 0.7 {ratio} 0.9-2.4 [facility] ALP [Catalytic activity/Vol] 83 U/L 45-117 [facility] ALT [Catalytic activity/Vol] 17 U/L 13-56 [facility] Cholesterol in HDL [Mass/Vol] 45 mg/dL >40 [facility] Comment on above: The drugs N-Acetylcy steine and Metamizole may falsely depress this assay. Reference Range HDL <40 mg/dL Low HDL Cholesterol HDL >or= 60 mg/dL High HDL Cholesterol Cholesterol in LDL [Mass/Vol] 78 mg/dL 0-130 [facility] CO2 [Moles/Vol] 25.0 mmol/L 21.0-32.0 [facility] Globulin (S) [Mass/Vol] 4.3 g/dL 2.2-4.2 [facility] Urea nitrogen/Creatinine [Mass ratio] 9.3 mg/mg 10-20 [facility] Laboratory - Hematology and Cell countsOrdered By: [facility] on 12-20-2023 MCH (RBC) [Entitic mass] 30.9 pg 27.0-32.0 [facility] MCHC (RBC) [Mass/Vol] 35.2 g/dL 32-36 [facility] Nucleated RBC/100 WBC (Bld) [Ratio] 0 % 0-5 [facility] Platelet mean volume (Bld) [Entitic vol] 9.9 fL 6.2-12.0 [facility] Platelets (Bld) [#/Vol] 183 10*3/uL 150-450 [facility] No Panel InformationOrdered By: Candelario Santana on 12-20-2023 Estimated GFR (MDRD) Amer 96 mL/min >60 [facility] Comment on above: GFR Calc Estimated GFR (MDRD) Non-Af Amer 80 mL/min >60 [facility] Comment on above: Non- GFR Calc Vitamin D 25-Hydroxy 19.3 ng/mL [facility] Comment on above: Vitamin D 25(OH) Sta tus Range Deficiency <20 ng/mL (50nmol/L) Insufficiency 20 - 30 ng/mL (50 - 75 nmol/L) Sufficiency 30 - 100 ng/mL (75 - 250 nmol/L) Toxicity >100 ng/mL (>250 nmol/L) VLDL Cholesterol 21 mg/dL 5-40 [facility] RBC Auto (Bld) [#/Vol]Ordere d By: Candelario Santana on 12-20-2023 RBC (Bld) [#/Vol] 3.43 10*6/uL 4.2-5.4 [facility] Serum or plasma calcium sabino urement (mass/volume)Ordered By: Candelario Santana on 12-20-2023 Calcium [Mass/Vol] 8.5 mg/dL 8.5-10.1 [facility] Serum or plasma creatinine m easurement (mass/volume)Ordered By: Candelario Santana on 12-20-2023 Creatinine [Mass/Vol] 0.75 mg/dL 0.55-1.02 [facility] Comment on above: The validity of the calculated GFR & GFRAA in patients over 70 years has not been determined. Clinical correlation is essential. Serum or plasma thyroid stim ulating hormone (TSH) measurement (units/volume)Ordered By: Candelario Santana on 12-20-2023 TSH Qn 2.06 uIU/mL 0.358-3.74 [facility] Serum or plasma urea nitroge n measurement (mass/volume)Ordered By: Candelario Santana on 12-20-2023 Urea nitrogen [Mass/Vol] 7 mg/dL 7-18 [facility] Thin prep Papanicolaou smear with manual screeningOrdered By: Candelario Santana 12-20-2023 Thin prep Papanicolaou smear with manual screening 3.0 g/dL 3.2-5.0 [facility] Thin prep Papanicolaou smear with manual screening 26 U/L 15-37 [facility] Thin prep Papanicolaou smear with manual screening 5 5-15 [facility] Whole blood hemoglobin A1c/t otal hemoglobin ratio (mass fraction)Ordered By: Candelario Santana on 12-20-2023 HbA1c (Bld) [Mass fraction] 7.2 % 3.8-5.6 [facility] Comment on above: Normal < 5.7 % Predi abetic 5.7 - 6.4 % Diabetic >or= 6.5 % Please note range changes. Absolute lymphocyte countOrd ered By: Candelario Fieldok on 09-21-2023 Lymphocytes Auto (Unsp spec) [#/Vol] 2.70 10*3/uL 0.83-4.51 [facility] Automated lymphocyte count a s percentage of total leukocytesOrdered By: Candelario Max on 09-21-2023 Lymphocytes/100 WBC Auto (Unsp spec) 46.9 % 19-41 [facility] Basophil percentageOrdered B y: Candelario Max on 09-21-2023 Basophils/100 WBC (Bld) 0.7 % 0-1 [facility] Bilirubin [Mass/Vol] 1.00 mg/dL 0.20-1.00 [facility] Comment on above: For patients on eltr ombopag therapy, use of Dimension Home TBIL is not recommended. Chloride [Moles/Vol] 106 mmol/L 98-107 [facility] Cholesterol [Mass/Vol] 154 mg/dL <200 [facility] Comment on above: <200 mg/dL Desirable 200-240 mg/dL Borderline >240 mg/dL High Risk Eosinophils/100 WBC (Bld) 3.1 % 0-5 [facility] Glucose [Mass/Vol] 227 mg/dL 74-106 [facility] Comment on above: Glucose result great er than or equal to 200 mg/dLsuggests DIABETES MELLITUS per A.D.A. criteria. Hemoglobin (Bld) [Mass/Vol] 10.5 g/dL 12.0-15.0 [facility] Monocytes/100 WBC (Bld) 8.5 % 0-10 [facility] Neutrophils (Bld) [#/Vol] 2.3 10*3/uL 2.0-7.7 [facility] Neutrophils/100 WBC (Bld) 40.6 % 47-70 [facility] Potassium [Moles/Vol] 3.6 mmol/L 3.5-5.1 [facility] Protein [Mass/Vol] 7.5 g/dL 6.4-8.2 [facility] Sodium [Moles/Vol] 135 mmol/L 136-145 [facility] Triglyceride [Mass/Vol] 94 mg/dL <199 [facility] Comment on above: The drugs N-Acetylcy steine and Metamizole may falsely depress this assay.Serum Triglycerides Reference Interval Normal <150 mg/dL Borderline high 150 - 199 mg/dL High 200 - 499 mg/dL Very High > or = 500 mg/dL WBC (Bld) [#/Vol] 5.8 10*3/uL 4.4-11.0 [facility] Determination of erythrocyte mean corpuscular volume (MCV)Ordered By: Candelario Santana on 09-21-2023 MCV (RBC) [Entitic vol] 92.0 fL 81-99 [facility] Erythrocyte distribution wid th ratioOrdered By: Candelario Santana 09-21-2023 Erythrocyte distribution width (RBC) [Ratio] 14.6 % 11.6-14.6 [facility] Erythrocyte distribution wid th standard deviationOrdered By: Candelario Santana 09-21-2023 Erythrocyte distribution width (RBC) [Entitic vol] 48.9 fL 35.1-43.9 [facility] Hematocrit Auto (Bld) [Volum e fraction]Ordered By: Candelario Santana 09-21-2023 Hematocrit (Bld) [Volume fraction] 30.9 % 37-47 [facility] High density lipoprotein (HD L) measurementOrdered By: Candelario Santana 09-21-2023 Cholesterol in HDL (Body fld) [Mass/Vol] 41 mg/dL >40 [facility] Comment on above: The drugs N-Acetylcy steine and Metamizole may falsely depress this assay. Reference Range HDL <40 mg/dL Low HDL Cholesterol HDL >or= 60 mg/dL High HDL Cholesterol Immature granulocytes/100 WB C Auto (Bld)Ordered By: Candelario Santana on 09-21-2023 Immature granulocytes/100 WBC (Bld) 0.200 % 0.0-0.9 [facility] Comment on above: IG% - Immature Granu locytes (promyelocytes, myelocytes and metamyelocytes) > 1% indicates that a LEFT SHIFT is Present. Laboratory - Chemistry and C hemistry - challengeOrdered By: Candelario Santana on 09-21-2023 Albumin/Globulin [Mass ratio] 0.7 {ratio} 0.9-2.4 [facility] ALP [Catalytic activity/Vol] 93 U/L 45-117 [facility] ALT [Catalytic activity/Vol] 23 U/L 13-56 [facility] CO2 [Moles/Vol] 22.0 mmol/L 21.0-32.0 [facility] Globulin (S) [Mass/Vol] 4.4 g/dL 2.2-4.2 [facility] Urea nitrogen/Creatinine [Mass ratio] 13.9 mg/mg 10-20 [facility] Laboratory - Hematology and Cell countsOrdered By: Candelario Santana on 09-21-2023 MCH (RBC) [Entitic mass] 31.3 pg 27.0-32.0 [facility] MCHC (RBC) [Mass/Vol] 34.0 g/dL 32-36 [facility] Nucleated RBC/100 WBC (Bld) [Ratio] 0 % 0-5 [facility] Platelets (Bld) [#/Vol] 185 10*3/uL 150-450 [facility] Low density lipoprotein (LDL ) cholesterol measurementOrdered By: Candelario Santana on 09-21-2023 Cholesterol in LDL (Body fld) [Moles/Vol] 94 mg/dL 0-130 [facility] No Panel InformationOrdered By: Candelario Santana on 09-21-2023 Estimated GFR (MDRD) Amer 101 mL/min >60 [facility] Comment on above: GFR Calc Estimated GFR (MDRD) Non-Af Amer 84 mL/min >60 [facility] Comment on above: Non- GFR Calc Vitamin D 25-Hydroxy 27.7 ng/mL [facility] Comment on above: Vitamin D 25(OH) Sta tus Range Deficiency <20 ng/mL (50nmol/L) Insufficiency 20 - 30 ng/mL (50 - 75 nmol/L) Sufficiency 30 - 100 ng/mL (75 - 250 nmol/L) Toxicity >100 ng/mL (>250 nmol/L) Platelet mean volume Hua-Ec ker (Bld) [Entitic vol]Ordered By: Candelario Santana on 09-21-2023 Platelet mean volume (Bld) [Entitic vol] 9.8 fL 6.2-12.0 [facility] RBC Auto (Bld) [#/Vol]Ordere d By: Candelario Santana on 09-21-2023 RBC (Bld) [#/Vol] 3.36 10*6/uL 4.2-5.4 [facility] Serum or plasma calcium sabino urement (mass/volume)Ordered By: Candelario Santana 09-21-2023 Calcium [Mass/Vol] 8.9 mg/dL 8.5-10.1 [facility] Serum or plasma creatinine m easurement (mass/volume)Ordered By: Candelario Santana 09-21-2023 Creatinine [Mass/Vol] 0.72 mg/dL 0.55-1.02 [facility] Comment on above: The validity of the calculated GFR & GFRAA in patients over 70 years has not been determined. Clinical correlation is essential. Serum or plasma thyroid stim ulating hormone (TSH) measurement (units/volume)Ordered By: Candelario Santana 09-21-2023 TSH Qn 2.20 uIU/mL 0.358-3.74 [facility] Serum or plasma urea nitroge n measurement (mass/volume)Ordered By: Candelario Santana 09-21-2023 Urea nitrogen [Mass/Vol] 10 mg/dL 7-18 [facility] Thin prep Papanicolaou smear with manual screeningOrdered By: Candelario Santana 09-21-2023 Thin prep Papanicolaou smear with manual screening 3.1 g/dL 3.2-5.0 [facility] Thin prep Papanicolaou smear with manual screening 29 U/L 15-37 [facility] Thin prep Papanicolaou smear with manual screening 7 5-15 [facility] Very low density lipoprotein (VLDL) cholesterol measurementOrdered By: Candelario Santana 09-21-2023 Cholesterol in VLDL Calc [Moles/Vol] 19 mg/dL 5-40 [facility] Absolute lymphocyte countOrd ered By: Candelario Santana on 06-15-2023 Lymphocytes Auto (Unsp spec) [#/Vol] 3.02 10*3/uL 0.83-4.51 [facility] Basophil percentageOrdered B y: Candelario Santana on 06-15-2023 Basophils/100 WBC (Bld) 0.7 % 0-1 [facility] Bilirubin [Mass/Vol] 1.30 mg/dL 0.20-1.00 [facility] Comment on above: For patients on eltr ombopag therapy, use of Dimension Home TBIL is not recommended. Chloride [Moles/Vol] 105 mmol/L 98-107 [facility] Cholesterol [Mass/Vol] 198 mg/dL <200 [facility] Comment on above: <200 mg/dL Desirable 200-240 mg/dL Borderline >240 mg/dL High Risk Eosinophils/100 WBC (Bld) 2.8 % 0-5 [facility] Glucose [Mass/Vol] 385 mg/dL 74-106 [facility] Comment on above: Glucose result great er than or equal to 200 mg/dLsuggests DIABETES MELLITUS per A.D.A. criteria. Neutrophils (Bld) [#/Vol] 3.5 10*3/uL 2.0-7.7 [facility] Neutrophils/100 WBC (Bld) 46.3 % 47-70 [facility] Potassium [Moles/Vol] 3.5 mmol/L 3.5-5.1 [facility] Protein [Mass/Vol] 7.7 g/dL 6.4-8.2 [facility] Sodium [Moles/Vol] 135 mmol/L 136-145 [facility] Triglyceride [Mass/Vol] 93 mg/dL <199 [facility] Comment on above: The drugs N-Acetylcy steine and Metamizole may falsely depress this assay.Serum Triglycerides Reference Interval Normal <150 mg/dL Borderline high 150 - 199 mg/dL High 200 - 499 mg/dL Very High > or = 500 mg/dL WBC (Bld) [#/Vol] 7.6 10*3/uL 4.4-11.0 [facility] Blood erythrocytes count (nu mber/volume)Ordered By: Candelario Santana on 06-15-2023 RBC (Bld) [#/Vol] 3.94 10*6/uL 4.2-5.4 [facility] Blood hemoglobin measurement (mass/volume)Ordered By: Candelario Santana on 06-15-2023 Hemoglobin (Bld) [Mass/Vol] 12.0 g/dL 12.0-15.0 [facility] Blood lymphocytes/100 leukoc ytesOrdered By: Candelario Santana on 06-15-2023 Lymphocytes/100 WBC (Bld) 39.7 % 19-41 [facility] Blood monocytes/100 leukocyt esOrdered By: [facility] Max on 06-15-2023 Monocytes/100 WBC (Bld) 10.2 % 0-10 [facility] Blood platelet mean volumeOr dered By: Candelario Santana on 06-15-2023 Platelet mean volume (Bld) [Entitic vol] 10.2 fL 6.2-12.0 [facility] Determination of erythrocyte mean corpuscular volume (MCV)Ordered By: Candelario Santana on 06-15-2023 MCV (RBC) [Entitic vol] 87.6 fL 81-99 [facility] Hematocrit Auto (Bld) [Volum e fraction]Or[facility]: [facility]23 Hematocrit (Bld) [Volume fraction] 34.5 % 37-47 [facility] Laboratory - Chemistry and C hemistry - challengeOrdered By: [facility] on 06-[facility]-2023 ALP [Catalytic activity/Vol] 99 U/L 45-117 [facility] ALT [Catalytic activity/Vol] 18 U/L 13-56 [facility] CO2 [Moles/Vol] 18.0 mmol/L 21.0-32.0 [facility] Globulin (S) [Mass/Vol] 4.6 g/dL 2.2-4.2 [facility] Urea nitrogen/Creatinine [Mass ratio] 13.8 mg/mg 10-20 [facility] Laboratory - Hematology and Cell countsOrdered By: Candelaroi Santana on 06-15-2023 Erythrocyte distribution width (RBC) [Entitic vol] 42.4 fL 35.1-43.9 [facility] Erythrocyte distribution width (RBC) [Ratio] 13.2 % 11.6-14.6 [facility] Immature granulocytes/100 WBC (Bld) 0.300 % 0.0-0.9 [facility] Comment on above: IG% - Immature Granu locytes (promyelocytes, myelocytes and metamyelocytes) > 1% indicates that a LEFT SHIFT is Present. MCH (RBC) [Entitic mass] 30.5 pg 27.0-32.0 [facility] Nucleated RBC/100 WBC (Bld) [Ratio] 0 % 0-5 [facility] MCHC Auto (RBC) [Mass/Vol]Or dered By: Candelario Santana on 06-15-2023 MCHC (RBC) [Mass/Vol] 34.8 g/dL 32-36 [facility] No Panel InformationOrdered By: Candelario Santana on 06-15-2023 Estimated GFR (MDRD) Amer 90 mL/min >60 [facility] Comment on above: GFR Calc Estimated GFR (MDRD) Non-Af Amer 74 mL/min >60 [facility] Comment on above: Non- GFR Calc Thyroid Stimulating Hormone (TSH) 5.09 uIU/mL 0.358-3.74 [facility] Vitamin D 25-Hydroxy 27.0 ng/mL [facility] Comment on above: Vitamin D 25(OH) Sta tus Range Deficiency <20 ng/mL (50nmol/L) Insufficiency 20 - 30 ng/mL (50 - 75 nmol/L) Sufficiency 30 - 100 ng/mL (75 - 250 nmol/L) Toxicity >100 ng/mL (>250 nmol/L) Platelets bldOrdered By: Candelario Santana on 06-15-2023 Platelets (Bld) [#/Vol] 223 10*3/uL 150-450 [facility] Serum or plasma albumin sabino urement (mass/volume)Ordered By: Candelario Santana on 06-15-2023 Albumin [Mass/Vol] 3.1 g/dL 3.2-5.0 [facility] Serum or plasma albumin/glob ulin mass ratioOrdered By: Candelario Santana on 06-15-2023 Albumin/Globulin [Mass ratio] 0.7 {ratio} 0.9-2.4 [facility] Serum or plasma calcium sabino urement (mass/volume)Ordered By: Candelario Santana on 06-15-2023 Calcium [Mass/Vol] 8.3 mg/dL 8.5-10.1 [facility] Serum or plasma cholesterol in HDL measurement (mass/volume)Ordered By: Candelario Santana on 06-15-2023 Cholesterol in HDL [Mass/Vol] 54 mg/dL >40 [facility] Comment on above: The drugs N-Acetylcy steine and Metamizole may falsely depress this assay. Reference Range HDL <40 mg/dL Low HDL Cholesterol HDL >or= 60 mg/dL High HDL Cholesterol Serum or plasma cholesterol in VLDL measurement (mass/volume)Ordered By: Candelario Santana on 06-15-2023 Cholesterol in VLDL [Mass/Vol] 19 mg/dL 5-40 [facility] Serum or plasma creatinine m easurement (mass/volume)Ordered By: Candelario Santana on 06-15-2023 Creatinine [Mass/Vol] 0.80 mg/dL 0.55-1.02 [facility] Comment on above: The validity of the calculated GFR & GFRAA in patients over 70 years has not been determined. Clinical correlation is essential. Serum or plasma low density lipoprotein (LDL) cholesterol measurement (mass/volume)Ordered By: Candelario Santana on 06-15-2023 Cholesterol in LDL [Mass/Vol] 125 mg/dL 0-130 [facility] Serum or plasma urea nitroge n measurement (mass/volume)Ordered By: Candelario Santana 06-15-2023 Urea nitrogen [Mass/Vol] 11 mg/dL 7-18 [facility] Thin prep Papanicolaou smear with manual screeningOrdered By: Candelario Santana 06-15-2023 Thin prep Papanicolaou smear with manual screening 21 U/L 15-37 [facility] Thin prep Papanicolaou smear with manual screening 12 5-15 [facility] Absolute lymphocyte countOrd ered By: Candelario Santana on 03-17-2023 Lymphocytes Auto (Unsp spec) [#/Vol] 2.32 10*3/uL 0.83-4.51 [facility] Basophil percentageOrdered B y: Candelario Santana on 03-17-2023 Basophils/100 WBC (Bld) 0.7 % 0-1 [facility] Bilirubin [Mass/Vol] 1.50 mg/dL 0.20-1.00 [facility] Comment on above: For patients on eltr ombopag therapy, use of Dimension Home TBIL is not recommended. Chloride [Moles/Vol] 104 mmol/L 98-107 [facility] Cholesterol [Mass/Vol] 163 mg/dL <200 [facility] Comment on above: <200 mg/dL Desirable 200-240 mg/dL Borderline >240 mg/dL High Risk Eosinophils/100 WBC (Bld) 2.2 % 0-5 [facility] Glucose [Mass/Vol] 289 mg/dL 74-106 [facility] Comment on above: Glucose result great er than or equal to 200 mg/dLsuggests DIABETES MELLITUS per A.D.A. criteria. Neutrophils (Bld) [#/Vol] 2.9 10*3/uL 2.0-7.7 [facility] Neutrophils/100 WBC (Bld) 48.9 % 47-70 [facility] Potassium [Moles/Vol] 4.2 mmol/L 3.5-5.1 [facility] Protein [Mass/Vol] 7.4 g/dL 6.4-8.2 [facility] Sodium [Moles/Vol] 134 mmol/L 136-145 [facility] Triglyceride [Mass/Vol] 102 mg/dL <199 [facility] Comment on above: The drugs N-Acetylcy steine and Metamizole may falsely depress this assay.Serum Triglycerides Reference Interval Normal <150 mg/dL Borderline high 150 - 199 mg/dL High 200 - 499 mg/dL Very High > or = 500 mg/dL WBC (Bld) [#/Vol] 6.0 10*3/uL 4.4-11.0 [facility] Blood erythrocytes count (nu mber/volume)Ordered By: Candelario Santana on 03-17-2023 RBC (Bld) [#/Vol] 3.78 10*6/uL 4.2-5.4 [facility] Blood hemoglobin measurement (mass/volume)Ordered By: Candelario Santana on 03-17-2023 Hemoglobin (Bld) [Mass/Vol] 11.5 g/dL 12.0-15.0 [facility] Blood lymphocytes/100 leukoc ytesOrdered By: Candelario Santana on 03-17-2023 Lymphocytes/100 WBC (Bld) 38.7 % 19-41 [facility] Blood monocytes/100 leukocyt esOrdered By: [facility] on 03-17-2023 Monocytes/100 WBC (Bld) 9.0 % 0-10 [facility] Blood platelet mean volumeOr dered By: [facility] on 03-17-2023 Platelet mean volume (Bld) [Entitic vol] 10.3 fL 6.2-12.0 [facility] Determination of erythrocyte mean corpuscular volume (MCV)Ordered By: [facility] on 03-17-2023 MCV (RBC) [Entitic vol] 93.1 fL 81-99 [facility] Hematocrit Auto (Bld) [Volum e fraction]Ordered By: [facility] 03-17-2023 Hematocrit (Bld) [Volume fraction] 35.2 % 37-47 [facility] Laboratory - Chemistry and C hemistry - challengeOrdered By: [facility] 03-17-2023 ALP [Catalytic activity/Vol] 162 U/L 45-117 [facility] ALT [Catalytic activity/Vol] 48 U/L 13-56 [facility] CO2 [Moles/Vol] 22.0 mmol/L 21.0-32.0 [facility] Globulin (S) [Mass/Vol] 4.4 g/dL 2.2-4.2 [facility] Urea nitrogen/Creatinine [Mass ratio] 10.3 mg/mg 10-20 [facility] Laboratory - Hematology and Cell countsOrdered By: [facility] 03-17-2023 Erythrocyte distribution width (RBC) [Entitic vol] 46.0 fL 35.1-43.9 [facility] Erythrocyte distribution width (RBC) [Ratio] 13.5 % 11.6-14.6 [facility] Immature granulocytes/100 WBC (Bld) 0.500 % 0.0-0.9 [facility] Comment on above: IG% - Immature Granu locytes (promyelocytes, myelocytes and metamyelocytes) > 1% indicates that a LEFT SHIFT is Present. MCH (RBC) [Entitic mass] 30.4 pg 27.0-32.0 [facility] Nucleated RBC/100 [facility]) [[facility]] 0 [facility] [Mass/Vol]Or dered By: Candelario Santana on 03-17-2023 MCHC (RBC) [Mass/Vol] 32.7 g/dL 32-36 [facility] No Panel InformationOrdered By: Candelario Santana on 03-17-2023 Estimated GFR (MDRD) Amer 93 mL/min >60 [facility] Comment on above: GFR Calc Estimated GFR (MDRD) Non-Af Amer 77 mL/min >60 [facility] Comment on above: Non- GFR Calc Thyroid Stimulating Hormone (TSH) 3.35 uIU/mL 0.358-3.74 [facility] Vitamin D 25-Hydroxy 21.8 ng/mL [facility] Comment on above: Vitamin D 25(OH) Sta tus Range Deficiency <20 ng/mL (50nmol/L) Insufficiency 20 - 30 ng/mL (50 - 75 nmol/L) Sufficiency 30 - 100 ng/mL (75 - 250 nmol/L) Toxicity >100 ng/mL (>250 nmol/L) Platelets bldOrdered By: Candelario Santana on 03-17-2023 Platelets (Bld) [#/Vol] 252 10*3/uL 150-450 [facility] Serum or plasma albumin sabino urement (mass/volume)Ordered By: Candelario Santana 03-17-2023 Albumin [Mass/Vol] 3.0 g/dL 3.2-5.0 [facility] Serum or plasma albumin/glob ulin mass ratioOrdered By: Candelario Santana 03-17-2023 Albumin/Globulin [Mass ratio] 0.7 {ratio} 0.9-2.4 [facility] Serum or plasma calcium sabino urement (mass/volume)Ordered By: Candelario Santana 03-17-2023 Calcium [Mass/Vol] 8.8 mg/dL 8.5-10.1 [facility] Serum or plasma cholesterol in HDL measurement (mass/volume)Ordered By: Candelario Santana 03-17-2023 Cholesterol in HDL [Mass/Vol] 36 mg/dL >40 [facility] Comment on above: The drugs N-Acetylcy steine and Metamizole may falsely depress this assay. Reference Range HDL <40 mg/dL Low HDL Cholesterol HDL >or= 60 mg/dL High HDL Cholesterol Serum or plasma cholesterol in VLDL measurement (mass/volume)Ordered By: Candelario Santana on 03-17-2023 Cholesterol in VLDL [Mass/Vol] 20 mg/dL 5-40 [facility] Serum or plasma creatinine m easurement (mass/volume)Ordered By: Candelario Santana on 03-17-2023 Creatinine [Mass/Vol] 0.77 mg/dL 0.55-1.02 [facility] Comment on above: The validity of the calculated GFR & GFRAA in patients over 70 years has not been determined. Clinical correlation is essential. Serum or plasma low density lipoprotein (LDL) cholesterol measurement (mass/volume)Ordered By: Candelario Santana on 03-17-2023 Cholesterol in LDL [Mass/Vol] 107 mg/dL 0-130 [facility] Serum or plasma urea nitroge n measurement (mass/volume)Ordered By: Candelario Santana on 03-17-2023 Urea nitrogen [Mass/Vol] 8 mg/dL 7-18 [facility] Thin prep Papanicolaou smear with manual screeningOrdered By: Candelario Santana on 03-17-2023 Thin prep Papanicolaou smear with manual screening 41 U/L 15-37 [facility] Thin prep Papanicolaou smear with manual screening 8 5-15 [facility] Absolute lymphocyte countOrd ered By: Dr. Santana on 12-21-2022 Lymphocytes Auto (Unsp spec) [#/Vol] 2.70 10*3/uL 0.83-4.51 [facility] Basophil percentageOrdered B y: Dr. Santana on 12-21-2022 Basophils/100 WBC (Bld) 0.7 % 0-1 [facility] Eosinophils/100 WBC (Bld) 3.6 % 0-5 [facility] Neutrophils (Bld) [#/Vol] 3.4 10*3/uL 2.0-7.7 [facility] Neutrophils/100 WBC (Bld) 46.8 % 47-70 [facility] WBC (Bld) [#/Vol] 7.3 10*3/uL 4.4-11.0 [facility] Blood erythrocytes count (nu mber/volume)Ordered By: Dr. Santana on 12-21-2022 RBC (Bld) [#/Vol] 3.57 10*6/uL 4.2-5.4 [facility] Blood hemoglobin measurement (mass/volume)Ordered By: Dr. Santana on 12-21-2022 Hemoglobin (Bld) [Mass/Vol] 11.0 g/dL 12.0-15.0 [facility] Blood lymphocytes/100 leukoc ytesOrdered By: Dr. Santana on 12-21-2022 Lymphocytes/100 WBC (Bld) 36.9 % 19-41 [facility] Blood monocytes/100 leukocyt esOrdered By: Dr. Santana on 12-21-2022 Monocytes/100 WBC (Bld) 11.7 % 0-10 [facility] Blood platelet mean volumeOr dered By: Dr. Santana on 12-21-2022 Platelet mean volume (Bld) [Entitic vol] 9.7 fL 6.2-12.0 [facility] Determination of erythrocyte mean corpuscular volume (MCV)Ordered By: Dr. Santana on 12-21-2022 MCV (RBC) [Entitic vol] 92.4 fL 81-99 [facility] Hematocrit Auto (Bld) [Volum e fraction]Ordered By: Dr. Santana on 12-21-2022 Hematocrit (Bld) [Volume fraction] 33.0 % 37-47 [facility] Hemoglobin in reticulocytes (mass per reticulocyte)Ordered By: Dr. Santana on 12-21-2022 Hemoglobin (Reticulocytes) [Entitic mass] 34.2 pg 30-35 [facility] Iron measurement (mass/mass) Ordered By: Dr. Santana on 12-21-2022 Iron (Unsp spec) [Mass/Mass] 61 ug/dL 50-170 [facility] Laboratory - Chemistry and C hemistry - challengeOrdered By: Dr. Santana on 12-21-2022 Cobalamin (Vitamin B12) [Mass/Vol] 312 pg/mL 211-911 [facility] - Hematology and Cell countsOrdered By: Dr. Santana on 12-21-2022 Erythrocyte distribution width (RBC) [Entitic vol] 46.0 fL 35.1-43.9 [facility] Erythrocyte distribution width (RBC) [Ratio] 13.5 % 11.6-14.6 [facility] Immature granulocytes/100 WBC (Bld) 0.300 % 0.0-0.9 [facility] Comment on above: IG% - Immature Granu locytes (promyelocytes, myelocytes and metamyelocytes) > 1% indicates that a LEFT SHIFT is Present. MCH (RBC) [Entitic mass] 30.8 pg 27.0-32.0 [facility] Nucleated RBC/100 WBC (Bld) [Ratio] 0 % 0-5 [facility] MCHC Auto (RBC) [Mass/Vol]Or dered By: Dr. Santana on 12-21-2022 MCHC (RBC) [Mass/Vol] 33.3 g/dL 32-36 [facility] No Panel InformationOrdered By: Dr. Santana on 12-21-2022 Immature Reticulocyte Fraction 6.10 % 3.00-15.90 [facility] Reticulocyte Count 1.63 % 0.5-1.5 [facility] Total Iron Binding Capacity 295 ug/dL 250-450 [facility] Platelets bldOrdered By: Dr. Santana on 12-21-2022 Platelets (Bld) [#/Vol] 234 10*3/uL 150-450 [facility] Serum or plasma ferritin uzma surement (mass/volume)Ordered By: Dr. Santana on 12-21-2022 Ferritin [Mass/Vol] 32 ng/mL 8-252 [facility] Serum or plasma folate measu rement (mass/volume)Ordered By: Dr. Santana on 12-21-2022 Folate [Mass/Vol] 18.50 ng/mL 3.1-55.4 [facility] Serum or plasma iron saturat ion measurement (mass fraction)Ordered By: Dr. Santana on 12-21-2022 Iron saturation [Mass fraction] 20.7 % 15.0-55.0 [facility] Absolute lymphocyte countOrd ered By: Dr. Santana on 12-16-2022 Lymphocytes Auto (Unsp spec) [#/Vol] 2.52 10*3/uL 0.83-4.51 [facility] Basophil percentageOrdered B y: Dr. Santana on 12-16-2022 Basophils/100 WBC (Bld) 0.6 % 0-1 [facility] Bilirubin [Mass/Vol] 0.90 mg/dL 0.20-1.00 [facility] Comment on above: For patients on eltr ombopag therapy, use of Dimension Home TBIL is not recommended. Chloride [Moles/Vol] 107 mmol/L 98-107 [facility] Cholesterol [Mass/Vol] 191 mg/dL <200 [facility] Comment on above: <200 mg/dL Desirable 200-240 mg/dL Borderline >240 mg/dL High Risk Eosinophils/100 WBC (Bld) 4.2 % 0-5 [facility] Glucose [Mass/Vol] 202 mg/dL 74-106 [facility] Comment on above: Glucose result great er than or equal to 200 mg/dLsuggests DIABETES MELLITUS per A.D.A. criteria. Neutrophils (Bld) [#/Vol] 2.7 10*3/uL 2.0-7.7 [facility] Neutrophils/100 WBC (Bld) 43.9 % 47-70 [facility] Potassium [Moles/Vol] 3.9 mmol/L 3.5-5.1 [facility] Protein [Mass/Vol] 7.6 g/dL 6.4-8.2 [facility] Sodium [Moles/Vol] 134 mmol/L 136-145 [facility] Triglyceride [Mass/Vol] 96 mg/dL <199 [facility] Comment on above: The drugs N-Acetylcy steine and Metamizole may falsely depress this assay.Serum Triglycerides Reference Interval Normal <150 mg/dL Borderline high 150 - 199 mg/dL High 200 - 499 mg/dL Very High > or = 500 mg/dL WBC (Bld) [#/Vol] 6.2 10*3/uL 4.4-11.0 [facility] Blood erythrocytes count (nu mber/volume)Ordered By: Dr. Santana on 12-16-2022 RBC (Bld) [#/Vol] 3.36 10*6/uL 4.2-5.4 [facility] Blood hemoglobin measurement (mass/volume)Ordered By: Dr. Santana on 12-16-2022 Hemoglobin (Bld) [Mass/Vol] 10.4 g/dL 12.0-15.0 [facility] Blood lymphocytes/100 leukoc ytesOrdered By: Dr. Santana on 12-16-2022 Lymphocytes/100 WBC (Bld) 40.4 % 19-41 [facility] Blood monocytes/100 leukocyt esOrdered By: Dr. Santana on 12-16-2022 Monocytes/100 WBC (Bld) 10.7 % 0-10 [facility] Blood platelet mean volumeOr dered By: Dr. Santana on 12-16-2022 Platelet mean volume (Bld) [Entitic vol] 9.8 fL 6.2-12.0 [facility] Determination of erythrocyte mean corpuscular volume (MCV)Ordered By: Dr. Santana on 12-16-2022 MCV (RBC) [Entitic vol] 90.2 fL 81-99 [facility] Hematocrit Auto (Bld) [Volum e fraction]Ordered By: Dr. Santnaa on 12-16-2022 Hematocrit (Bld) [Volume fraction] 30.3 % 37-47 [facility] Laboratory - Chemistry and C hemistry - challengeOrdered By: Dr. Santana on 12-16-2022 ALP [Catalytic activity/Vol] 66 U/L 45-117 [facility] ALT [Catalytic activity/Vol] 17 U/L 13-56 [facility] CO2 [Moles/Vol] 22.0 mmol/L 21.0-32.0 [facility] Globulin (S) [Mass/Vol] 4.4 g/dL 2.2-4.2 [facility] Urea nitrogen/Creatinine [Mass ratio] 12.8 mg/mg 10-20 [facility] - Hematology and Cell countsOrdered By: Dr. Santana on 12-16-2022 Erythrocyte distribution width (RBC) [Entitic vol] 44.2 fL 35.1-43.9 [facility] Erythrocyte distribution width (RBC) [Ratio] 13.6 % 11.6-14.6 [facility] Immature granulocytes/100 WBC (Bld) 0.200 % 0.0-0.9 [facility] Comment on above: IG% - Immature Granu locytes (promyelocytes, myelocytes and metamyelocytes) > 1% indicates that a LEFT SHIFT is Present. MCH (RBC) [Entitic mass] 31.0 pg 27.0-32.0 [facility] Nucleated RBC/100 WBC (Bld) [Ratio] 0 % 0-5 [facility] MCHC Auto (RBC) [Mass/Vol]Or dered By: Dr. Santana on 12-16-2022 MCHC (RBC) [Mass/Vol] 34.3 g/dL 32-36 [facility] No Panel InformationOrdered By: Dr. Santana on 12-16-2022 Estimated GFR (MDRD) Amer 92 mL/min >60 [facility] Comment on above: GFR Calc Estimated GFR (MDRD) Non-Af Amer 76 mL/min >60 [facility] Comment on above: Non- GFR Calc Thyroid Stimulating Hormone (TSH) 0.64 uIU/mL 0.358-3.74 [facility] Vitamin D 25-Hydroxy 37.9 ng/mL [facility] Comment on above: Vitamin D 25(OH) Sta tus Range Deficiency <20 ng/mL (50nmol/L) Insufficiency 20 - 30 ng/mL (50 - 75 nmol/L) Sufficiency 30 - 100 ng/mL (75 - 250 nmol/L) Toxicity >100 ng/mL (>250 nmol/L) Platelets bldOrdered By: Dr. Santana on 12-16-2022 Platelets (Bld) [#/Vol] 212 10*3/uL 150-450 [facility] Serum or plasma albumin sabino urement (mass/volume)Ordered By: Dr. Santana on 12-16-2022 Albumin [Mass/Vol] 3.2 g/dL 3.2-5.0 [facility] Serum or plasma albumin/glob ulin mass ratioOrdered By: Dr. Santana on 12-16-2022 Albumin/Globulin [Mass ratio] 0.7 {ratio} 0.9-2.4 [facility] Serum or plasma calcium sabino urement (mass/volume)Ordered By: Dr. Santana on 12-16-2022 Calcium [Mass/Vol] 8.7 mg/dL 8.5-10.1 [facility] Serum or plasma cholesterol in HDL measurement (mass/volume)Ordered By: Dr. Santana on 12-16-2022 Cholesterol in HDL [Mass/Vol] 50 mg/dL >40 [facility] Comment on above: The drugs N-Acetylcy steine and Metamizole may falsely depress this assay. Reference Range HDL <40 mg/dL Low HDL Cholesterol HDL >or= 60 mg/dL High HDL Cholesterol Serum or plasma cholesterol in VLDL measurement (mass/volume)Ordered By: Dr. Santana on 12-16-2022 Cholesterol in VLDL [Mass/Vol] 19 mg/dL 5-40 [facility] Serum or plasma creatinine m easurement (mass/volume)Ordered By: Dr. Santana on 12-16-2022 Creatinine [Mass/Vol] 0.78 mg/dL 0.55-1.02 [facility] Comment on above: The validity of the calculated GFR & GFRAA in patients over 70 years has not been determined. Clinical correlation is essential. Serum or plasma low density lipoprotein (LDL) cholesterol measurement (mass/volume)Ordered By: Dr. Santana on 12-16-2022 Cholesterol in LDL [Mass/Vol] 122 mg/dL 0-130 [facility] Serum or plasma urea nitroge n measurement (mass/volume)Ordered By: Dr. Santana on 12-16-2022 Urea nitrogen [Mass/Vol] 10 mg/dL 7-18 [facility] Thin prep Papanicolaou smear with manual screeningOrdered By: Dr. Santana on 12-16-2022 Thin prep Papanicolaou smear with manual screening 25 U/L 15-37 [facility] Thin prep Papanicolaou smear with manual screening 5 5-15 [facility] Glucose Glucometer (BldC) [M ass/Vol]Ordered By: Antony Tran on 11-24-2022 Glucose [Mass/Vol] 182 mg/dL 74-106 [facility] Comment on above: MANAGEMENT OF PATIEN T CARE PER NURSING PROTOCOL Absolute lymphocyte countOrd ered By: Candelario Santana on 09-16-2022 Lymphocytes Auto (Unsp spec) [#/Vol] 2.69 10*3/uL 0.83-4.51 [facility] Basophil percentageOrdered B y: Candelario Santana on 09-16-2022 Basophils/100 WBC (Bld) 0.5 % 0-1 [facility] Bilirubin [Mass/Vol] 1.10 mg/dL 0.20-1.00 [facility] Comment on above: For patients on eltr ombopag therapy, use of Dimension Home TBIL is not recommended. Chloride [Moles/Vol] 100 mmol/L 98-107 [facility] Cholesterol [Mass/Vol] 179 mg/dL <200 [facility] Comment on above: <200 mg/dL Desirable 200-240 mg/dL Borderline >240 mg/dL High Risk Eosinophils/100 WBC (Bld) 2.7 % 0-5 [facility] Glucose [Mass/Vol] 374 mg/dL 74-106 [facility] Comment on above: Glucose result great er than or equal to 200 mg/dLsuggests DIABETES MELLITUS per A.D.A. criteria. Neutrophils (Bld) [#/Vol] 3.8 10*3/uL 2.0-7.7 [facility] Neutrophils/100 WBC (Bld) 50.5 % 47-70 [facility] Potassium [Moles/Vol] 3.5 mmol/L 3.5-5.1 [facility] Protein [Mass/Vol] 7.4 g/dL 6.4-8.2 [facility] Sodium [Moles/Vol] 135 mmol/L 136-145 [facility] Triglyceride [Mass/Vol] 89 mg/dL <199 [facility] Comment on above: The drugs N-Acetylcy steine and Metamizole may falsely depress this assay.Serum Triglycerides Reference Interval Normal <150 mg/dL Borderline high 150 - 199 mg/dL High 200 - 499 mg/dL Very High > or = 500 mg/dL WBC (Bld) [#/Vol] 7.5 10*3/uL 4.4-11.0 [facility] Blood erythrocytes count (nu mber/volume)Ordered By: Candelario Santana on 09-16-2022 RBC (Bld) [#/Vol] 3.82 10*6/uL 4.2-5.4 [facility] Blood hemoglobin measurement (mass/volume)Ordered By: Candelario Santana on 09-16-2022 Hemoglobin (Bld) [Mass/Vol] 11.5 g/dL 12.0-15.0 [facility] Blood lymphocytes/100 leukoc ytesOrdered By: Candelario Santana on 09-16-2022 Lymphocytes/100 WBC (Bld) 36.1 % 19-41 [facility] Blood monocytes/100 leukocyt esOrdered By: Candelario Max on 09-16-2022 Monocytes/100 WBC (Bld) 9.8 % 0-10 [facility] Blood platelet mean volumeOr dered By: Candelario Fieldok on 09-16-2022 Platelet mean volume (Bld) [Entitic vol] 10.4 fL 6.2-12.0 [facility] Determination of erythrocyte mean corpuscular volume (MCV)Ordered By: Candelario Santana on 09-16-2022 MCV (RBC) [Entitic vol] 86.4 fL 81-99 [facility] Hematocrit Auto (Bld) [Volum e fraction][facility]: [facility] Hematocrit (Bld) [Volume fraction] 33.0 % 37-47 [facility] - Chemistry and C hemistry - challengeOrdered By: [facility] 09-16-[facility]22 ALP [Catalytic activity/Vol] 81 U/L 45-117 [facility] ALT [Catalytic activity/Vol] 19 U/L 13-56 [facility] CO2 [Moles/Vol] 23.0 mmol/L 21.0-32.0 [facility] Globulin (S) [Mass/Vol] 4.4 g/dL 2.2-4.2 [facility] Urea nitrogen/Creatinine [Mass ratio] 16.9 mg/mg 10-20 [facility] - Hematology and Cell countsOrdered By: Candelario Max 09-16-2022 Erythrocyte distribution width (RBC) [Entitic vol] 40.5 fL 35.1-43.9 [facility] Erythrocyte distribution width (RBC) [Ratio] 13.2 % 11.6-14.6 [facility] Immature granulocytes/100 WBC (Bld) 0.400 % 0.0-0.9 [facility] Comment on above: IG% - Immature Granu locytes (promyelocytes, myelocytes and metamyelocytes) > 1% indicates that a LEFT SHIFT is Present. MCH (RBC) [Entitic mass] 30.1 pg 27.0-32.0 [facility] Nucleated RBC/100 WBC (Bld) [Ratio] 0 % 0-5 [facility] Auto (RBC) [Mass/Vol]Or dered By: Candelario Santana on 09-16-2022 MCHC (RBC) [Mass/Vol] 34.8 g/dL 32-36 [facility] No Panel InformationOrdered By: Candelario Santana on 09-16-2022 Estimated GFR (MDRD) Amer 87 mL/min >60 [facility] Comment on above: GFR Calc Estimated GFR (MDRD) Non-Af Amer 72 mL/min >60 [facility] Comment on above: Non- GFR Calc Thyroid Stimulating Hormone (TSH) 4.20 uIU/mL 0.358-3.74 [facility] Vitamin D 25-Hydroxy 26.7 ng/mL [facility] Comment on above: Vitamin D 25(OH) Sta tus Range Deficiency <20 ng/mL (50nmol/L) Insufficiency 20 - 30 ng/mL (50 - 75 nmol/L) Sufficiency 30 - 100 ng/mL (75 - 250 nmol/L) Toxicity >100 ng/mL (>250 nmol/L) Platelets bldOrdered By: Candelario Santana on 09-16-2022 Platelets (Bld) [#/Vol] 213 10*3/uL 150-450 [facility] Serum or plasma albumin sabino urement (mass/volume)Ordered By: Candelario Santana on 09-16-2022 Albumin [Mass/Vol] 3.0 g/dL 3.2-5.0 [facility] Serum or plasma albumin/glob ulin mass ratioOrdered By: Candelario Santana 09-16-2022 Albumin/Globulin [Mass ratio] 0.7 {ratio} 0.9-2.4 [facility] Serum or plasma calcium sabino urement (mass/volume)Ordered By: Candelario Santana 09-16-2022 Calcium [Mass/Vol] 9.2 mg/dL 8.5-10.1 [facility] Serum or plasma cholesterol in HDL measurement (mass/volume)Ordered By: Candelario Santana on 09-16-2022 Cholesterol in HDL [Mass/Vol] 58 mg/dL >40 [facility] Comment on above: The drugs N-Acetylcy steine and Metamizole may falsely depress this assay. Reference Range HDL <40 mg/dL Low HDL Cholesterol HDL >or= 60 mg/dL High HDL Cholesterol Serum or plasma cholesterol in VLDL measurement (mass/volume)Ordered By: Candelario Santana on 09-16-2022 Cholesterol in VLDL [Mass/Vol] 18 mg/dL 5-40 [facility] Serum or plasma creatinine m easurement (mass/volume)Ordered By: Candelario Santana on 09-16-2022 Creatinine [Mass/Vol] 0.83 mg/dL 0.55-1.02 [facility] Comment on above: The validity of the calculated GFR & GFRAA in patients over 70 years has not been determined. Clinical correlation is essential. Serum or plasma low density lipoprotein (LDL) cholesterol measurement (mass/volume)Ordered By: Candelario Santana on 09-16-2022 Cholesterol in LDL [Mass/Vol] 103 mg/dL 0-130 [facility] Serum or plasma urea nitroge n measurement (mass/volume)Ordered By: Candelario Santana on 09-16-2022 Urea nitrogen [Mass/Vol] 14 mg/dL 7-18 [facility] Thin prep Papanicolaou smear with manual screeningOrdered By: Candelario Santana on 09-16-2022 Thin prep Papanicolaou smear with manual screening 21 U/L 15-37 [facility] Thin prep Papanicolaou smear with manual screening 12 5-15 [facility] Absolute lymphocyte countOrd ered By: Dr. Santana on 07-08-2022 Lymphocytes Auto (Unsp spec) [#/Vol] 1.66 10*3/uL 0.83-4.51 [facility] Basophil percentageOrdered B y: Dr. Santana on 07-08-2022 Basophils/100 WBC (Bld) 0.8 % 0-1 [facility] Bilirubin [Mass/Vol] 1.20 mg/dL 0.20-1.00 [facility] Comment on above: For patients on eltr ombopag therapy, use of Dimension Home TBIL is not recommended. Chloride [Moles/Vol] 104 mmol/L 98-107 [facility] Cholesterol [Mass/Vol] 176 mg/dL <200 [facility] Comment on above: <200 mg/dL Desirable 200-240 mg/dL Borderline >240 mg/dL High Risk Eosinophils/100 WBC (Bld) 9.7 % 0-5 [facility] Glucose [Mass/Vol] 278 mg/dL 74-106 [facility] Comment on above: Glucose result great er than or equal to 200 mg/dLsuggests DIABETES MELLITUS per A.D.A. criteria. Neutrophils (Bld) [#/Vol] 2.5 10*3/uL 2.0-7.7 [facility] [facility] Neutrophils/100 WBC (Bld) 48.1 % 47-70 [facility] Potassium [Moles/Vol] 3.4 mmol/L 3.5-5.1 [facility] Protein [Mass/Vol] 7.4 g/dL 6.4-8.2 [facility] Sodium [Moles/Vol] 138 mmol/L 136-145 [facility] Triglyceride [Mass/Vol] 85 mg/dL <199 [facility] Comment on above: The drugs N-Acetylcy steine and Metamizole may falsely depress this assay.Serum Triglycerides Reference Interval Normal <150 mg/dL Borderline high 150 - 199 mg/dL High 200 - 499 mg/dL Very High > or = 500 mg/dL WBC (Bld) [#/Vol] 5.1 10*3/uL 4.4-11.0 [facility] Blood erythrocytes count (nu mber/volume)Ordered By: Dr. Santana on 07-08-2022 RBC (Bld) [#/Vol] 3.75 10*6/uL 4.2-5.4 [facility] Blood hemoglobin measurement (mass/volume)Ordered By: Dr. Santana on 07-08-2022 Hemoglobin (Bld) [Mass/Vol] 11.6 g/dL 12.0-15.0 [facility] Blood lymphocytes/100 leukoc ytesOrdered By: Dr. Santana on 07-08-2022 Lymphocytes/100 WBC (Bld) 32.4 % 19-41 [facility] Blood monocytes/100 leukocyt esOrdered By: Dr. Santana on 07-08-2022 Monocytes/100 WBC (Bld) 8.8 % 0-10 [facility] Blood platelet mean volumeOr dered By: Dr. Santana on 07-08-2022 Platelet mean volume (Bld) [Entitic vol] 10.3 fL 6.2-12.0 [facility] Determination of erythrocyte mean corpuscular volume (MCV)Ordered By: Dr. Santana on 07-08-2022 MCV (RBC) [Entitic vol] 90.1 fL 81-99 [facility] Hematocrit Auto (Bld) [Volum e fraction]Ordered By: Dr. Santana on 07-08-2022 Hematocrit (Bld) [Volume fraction] 33.8 % 37-47 [facility] Laboratory - Chemistry and C hemistry - challengeOrdered By: Dr. Santana on 07-08-2022 ALP [Catalytic activity/Vol] 99 U/L 45-117 [facility] ALT [Catalytic activity/Vol] 16 U/L 13-56 [facility] CO2 [Moles/Vol] 25.0 mmol/L 21.0-32.0 [facility] Globulin (S) [Mass/Vol] 4.3 g/dL 2.2-4.2 [facility] Urea nitrogen/Creatinine [Mass ratio] 11.6 mg/mg 10-20 [facility] Laboratory - Hematology and Cell countsOrdered By: Dr. Santana on 07-08-2022 Erythrocyte distribution width (RBC) [Entitic vol] 46.6 fL 35.1-43.9 [facility] Erythrocyte distribution width (RBC) [Ratio] 14.4 % 11.6-14.6 [facility] Immature granulocytes/100 WBC (Bld) 0.200 % 0.0-0.9 [facility] Comment on above: IG% - Immature Granu locytes (promyelocytes, myelocytes and metamyelocytes) > 1% indicates that a LEFT SHIFT is Present. MCH (RBC) [Entitic mass] 30.9 pg 27.0-32.0 [facility] Nucleated RBC/100 WBC (Bld) [Ratio] 0 % 0-5 [facility] MCHC Auto (RBC) [Mass/Vol]Or dered By: Dr. Santana on 07-08-2022 MCHC (RBC) [Mass/Vol] 34.3 g/dL 32-36 [facility] No Panel InformationOrdered By: Dr. Santana on 07-08-2022 Estimated GFR (MDRD) Amer 125 mL/min >60 [facility] Comment on above: GFR Calc Estimated GFR (MDRD) Non-Af Amer 103 mL/min >60 [facility] Comment on above: Non- GFR Calc Thyroid Stimulating Hormone (TSH) 5.16 uIU/mL 0.358-3.74 [facility] Vitamin D 25-Hydroxy 26.2 ng/mL [facility] Comment on above: Vitamin D 25(OH) Sta tus Range Deficiency <20 ng/mL (50nmol/L) Insufficiency 20 - 30 ng/mL (50 - 75 nmol/L) Sufficiency 30 - 100 ng/mL (75 - 250 nmol/L) Toxicity >100 ng/mL (>250 nmol/L) Platelets bldOrdered By: Dr. Santana on 07-08-2022 Platelets (Bld) [#/Vol] 171 10*3/uL 150-450 [facility] Serum or plasma albumin sabino urement (mass/volume)Ordered By: Dr. Santana on 07-08-2022 Albumin [Mass/Vol] 3.1 g/dL 3.2-5.0 [facility] Serum or plasma albumin/glob ulin mass ratioOrdered By: Dr. Santana on 07-08-2022 Albumin/Globulin [Mass ratio] 0.7 {ratio} 0.9-2.4 [facility] Serum or plasma calcium sabino urement (mass/volume)Ordered By: Dr. Santana on 07-08-2022 Calcium [Mass/Vol] 8.7 mg/dL 8.5-10.1 [facility] Serum or plasma cholesterol in HDL measurement (mass/volume)Ordered By: Dr. Santana on 07-08-2022 Cholesterol in HDL [Mass/Vol] 50 mg/dL >40 [facility] Comment on above: The drugs N-Acetylcy steine and Metamizole may falsely depress this assay. Reference Range HDL <40 mg/dL Low HDL Cholesterol HDL >or= 60 mg/dL High HDL Cholesterol Serum or plasma cholesterol in VLDL measurement (mass/volume)Ordered By: Dr. Santana on 07-08-2022 Cholesterol in VLDL [Mass/Vol] 17 mg/dL 5-40 [facility] Serum or plasma creatinine m easurement (mass/volume)Ordered By: Dr. Santana on 07-08-2022 Creatinine [Mass/Vol] 0.60 mg/dL 0.55-1.02 [facility] Comment on above: The validity of the calculated GFR & GFRAA in patients over 70 years has not been determined. Clinical correlation is essential. Serum or plasma low density lipoprotein (LDL) cholesterol measurement (mass/volume)Ordered By: Dr. Santana on 07-08-2022 Cholesterol in LDL [Mass/Vol] 109 mg/dL 0-130 [facility] Serum or plasma urea nitroge n measurement (mass/volume)Ordered By: Dr. Santana on 07-08-2022 Urea nitrogen [Mass/Vol] 7 mg/dL 7-18 [facility] Thin prep Papanicolaou smear with manual screeningOrdered By: Dr. Santana on 07-08-2022 Thin prep Papanicolaou smear with manual screening 20 U/L 15-37 [facility] Thin prep Papanicolaou smear with manual screening 9 5-15 [facility] No Panel Informationon 05-25 Thyroid Stimulating Hormone (TSH) 2.85 uIU/mL 0.358-3.74 [facility] Work Phone: Absolute lymphocyte counton 04-09-2022 Lymphocytes Auto (Unsp spec) [#/Vol] 2.49 10*3/uL 0.83-4.51 [facility] Work Phone: Basophil percentageon 2021 Basophils/100 WBC (Bld) 0.3 % 0-1 [facility] Work Phone: Bilirubin [Mass/Vol] 0.90 mg/dL 0.20-1.00 [facility] Work Phone: Comment on above: For patients on eltr ombopag therapy, use of Dimension Home TBIL is not recommended. Chloride [Moles/Vol] 103 mmol/L 98-107 [facility] Work Phone: Cholesterol [Mass/Vol] 154 mg/dL <200 [facility] Work Phone: Comment on above: <200 mg/dL Desirable 200-240 mg/dL Borderline >240 mg/dL High Risk Eosinophils/100 WBC (Bld) 5.2 % 0-5 [facility] Work Phone: Glucose [Mass/Vol] 337 mg/dL 74-106 [facility] Work Phone: Comment on above: Glucose result great er than or equal to 200 mg/dLsuggests DIABETES MELLITUS per A.D.A. criteria. Neutrophils (Bld) [#/Vol] 2.6 10*3/uL 2.0-7.7 [facility] Work Phone: Neutrophils/100 WBC (Bld) 44.2 % 47-70 [facility] Work Phone: Potassium [Moles/Vol] 3.9 mmol/L 3.5-5.1 [facility] Work Phone: Protein [Mass/Vol] 7.1 g/dL 6.4-8.2 [facility] Work Phone: Sodium [Moles/Vol] 135 mmol/L 136-145 [facility] Work Phone: Triglyceride [Mass/Vol] 105 mg/dL <199 [facility] Work Phone: Comment on above: The drugs N-Acetylcy steine and Metamizole may falsely depress this assay.Serum Triglycerides Reference Interval Normal <150 mg/dL Borderline high 150 - 199 mg/dL High 200 - 499 mg/dL Very High > or = 500 mg/dL WBC (Bld) [#/Vol] 6.0 10*3/uL 4.4-11.0 [facility] Work Phone: Blood erythrocytes count (nu mber/volume)on 04-09-2022 RBC (Bld) [#/Vol] 3.33 10*6/uL 4.2-5.4 [facility] Work Phone: Blood hemoglobin measurement (mass/volume)on 04-09-2022 Hemoglobin (Bld) [Mass/Vol] 10.0 g/dL 12.0-15.0 [facility] Work Phone: Blood lymphocytes/100 leukoc yteson 04-09-2022 Lymphocytes/100 WBC (Bld) 41.8 % 19-41 [facility] Work Phone: Blood monocytes/100 leukocyt eson 04-09-2022 Monocytes/100 WBC (Bld) 8.2 % 0-10 [facility] Work Phone: Blood platelet mean volumeon 04-09-2022 Platelet mean volume (Bld) [Entitic vol] 10.0 fL 6.2-12.0 [facility] Work Phone: Determination of erythrocyte mean corpuscular volume (MCV)on 04-09-2022 MCV (RBC) [Entitic vol] 88.9 fL 81-99 [facility] Work Phone: Hematocrit Auto (Bld) [Volum e fraction]on 04-09-2022 Hematocrit (Bld) [Volume fraction] 29.6 % 37-47 [facility] Work Phone: Laboratory - Chemistry and C hemistry - challengeon 04-09-2022 ALP [Catalytic activity/Vol] 101 U/L 45-117 [facility] Work Phone: ALT [Catalytic activity/Vol] 20 U/L 13-56 [facility] Work Phone: CO2 [Moles/Vol] 24.0 mmol/L 21.0-32.0 [facility] Work Phone: Globulin (S) [Mass/Vol] 4.4 g/dL 2.2-4.2 [facility] Work Phone: Urea nitrogen/Creatinine [Mass ratio] 10.9 mg/mg 10-20 [facility] Work Phone: Laboratory - Hematology and Cell countson 04-09-2022 Erythrocyte distribution width (RBC) [Entitic vol] 43.0 fL 35.1-43.9 [facility] Work Phone: Erythrocyte distribution width (RBC) [Ratio] 13.3 % 11.6-14.6 [facility] Work Phone: Immature granulocytes/100 WBC (Bld) 0.300 % 0.0-0.9 [facility] Work Phone: Comment on above: IG% - Immature Granu locytes (promyelocytes, myelocytes and metamyelocytes) > 1% indicates that a LEFT SHIFT is Present. MCH (RBC) [Entitic mass] 30.0 pg 27.0-32.0 [facility] Work Phone: Nucleated RBC/100 WBC (Bld) [Ratio] 0 % 0-5 [facility] Work Phone: MCHC Auto (RBC) [Mass/Vol]on 04-09-2022 MCHC (RBC) [Mass/Vol] 33.8 g/dL 32-36 [facility] Work Phone: No Panel Informationon 04-09 Estimated GFR (MDRD) Amer 99 mL/min >60 [facility] Work Phone: Comment on above: GFR Calc Estimated GFR (MDRD) Non-Af Amer 82 mL/min >60 [facility] Work Phone: Comment on above: Non- GFR Calc Thyroid Stimulating Hormone (TSH) 5.32 uIU/mL 0.358-3.74 [facility] Work Phone: Vitamin D 25-Hydroxy 28.3 ng/mL [facility] Work Phone: Comment on above: Vitamin D 25(OH) Sta tus Range Deficiency <20 ng/mL (50nmol/L) Insufficiency 20 - 30 ng/mL (50 - 75 nmol/L) Sufficiency 30 - 100 ng/mL (75 - 250 nmol/L) Toxicity >100 ng/mL (>250 nmol/L) Platelets bldon 04-09-2022 Platelets (Bld) [#/Vol] 203 10*3/uL 150-450 [facility] Work Phone: Serum or plasma albumin sabino urement (mass/volume)on 04-09-2022 Albumin [Mass/Vol] 2.7 g/dL 3.2-5.0 [facility] Work Phone: Serum or plasma albumin/glob ulin mass ratioon 04-09-2022 Albumin/Globulin [Mass ratio] 0.6 {ratio} 0.9-2.4 [facility] Work Phone: Serum or plasma calcium sabino urement (mass/volume)on 04-09-2022 Calcium [Mass/Vol] 8.7 mg/dL 8.5-10.1 [facility] Work Phone: Serum or plasma cholesterol in HDL measurement (mass/volume)on 04-09-2022 Cholesterol in HDL [Mass/Vol] 43 mg/dL >40 [facility] Work Phone: Comment on above: The drugs N-Acetylcy steine and Metamizole may falsely depress this assay. Reference Range HDL <40 mg/dL Low HDL Cholesterol HDL >or= 60 mg/dL High HDL Cholesterol Serum or plasma cholesterol in VLDL measurement (mass/volume)on 04-09-2022 Cholesterol in VLDL [Mass/Vol] 21 mg/dL 5-40 [facility] Work Phone: Serum or plasma creatinine m easurement (mass/volume)on 04-09-2022 Creatinine [Mass/Vol] 0.74 mg/dL 0.55-1.02 [facility] Work Phone: Comment on above: The validity of the calculated GFR & GFRAA in patients over 70 years has not been determined. Clinical correlation is essential. Serum or plasma low density lipoprotein (LDL) cholesterol measurement (mass/volume)on 04-09-2022 Cholesterol in LDL [Mass/Vol] 90 mg/dL 0-130 [facility] Work Phone: Serum or plasma urea nitroge n measurement (mass/volume)on 04-09-2022 Urea nitrogen [Mass/Vol] 8 mg/dL 7-18 [facility] Work Phone: Thin prep Papanicolaou smear with manual screeningon 04-09-2022 Thin prep Papanicolaou smear with manual screening 22 U/L 15-37 [facility] Work Phone: Thin prep Papanicolaou smear with manual screening 8 5-15 [facility] Work Phone: Absolute lymphocyte counton 03-21-2022 Lymphocytes Auto (Unsp spec) [#/Vol] 1.58 10*3/uL 0.83-4.51 [facility] Work Phone: Basophil percentageon 2021 Basophils/100 WBC (Bld) 0.2 % 0-1 [facility] Work Phone: Bilirubin [Mass/Vol] 1.60 mg/dL 0.20-1.00 [facility] Work Phone: Comment on above: For patients on eltr ombopag therapy, use of Dimension Home TBIL is not recommended. Chloride [Moles/Vol] 108 mmol/L 98-107 [facility] Work Phone: Eosinophils/100 WBC (Bld) 0.0 % 0-5 [facility] Work Phone: Glucose [Mass/Vol] 181 mg/dL 74-106 [facility] Work Phone: Comment on above: Fasting Glucose resu lt greater than or equal to 126 mg/dL suggests DIABETES MELLITUS per A.D.A. criteria. Neutrophils (Bld) [#/Vol] 8.6 10*3/uL 2.0-7.7 [facility] Work Phone: Neutrophils/100 WBC (Bld) 79.8 % 47-70 [facility] Work Phone: Potassium [Moles/Vol] 3.3 mmol/L 3.5-5.1 [facility] Work Phone: Protein [Mass/Vol] 6.4 g/dL 6.4-8.2 [facility] Work Phone: Sodium [Moles/Vol] 136 mmol/L 136-145 [facility] Work Phone: WBC (Bld) [#/Vol] 10.8 10*3/uL 4.4-11.0 [facility] Work Phone: Blood erythrocytes count (nu mber/volume)on 03-21-2022 RBC (Bld) [#/Vol] 3.29 10*6/uL 4.2-5.4 [facility] Work Phone: Blood hemoglobin measurement (mass/volume)on 03-21-2022 Hemoglobin (Bld) [Mass/Vol] 10.1 g/dL 12.0-15.0 [facility] Work Phone: Blood lymphocytes/100 leukoc yteson 03-21-2022 Lymphocytes/100 WBC (Bld) 14.6 % 19-41 [facility] Work Phone: Blood monocytes/100 leukocyt eson 03-21-2022 Monocytes/100 WBC (Bld) 4.4 % 0-10 [facility] Work Phone: Blood platelet mean volumeon 03-21-2022 Platelet mean volume (Bld) [Entitic vol] 9.9 fL 6.2-12.0 [facility] Work Phone: Determination of erythrocyte mean corpuscular volume (MCV)on 03-21-2022 MCV (RBC) [Entitic vol] 89.1 fL 81-99 [facility] Work Phone: Glucose Glucometer (BldC) [M ass/Vol]on 03-21-2022 Glucose [Mass/Vol] 172 mg/dL 74-106 [facility] Work Phone: Comment on above: MANAGEMENT OF PATIEN T CARE PER NURSING PROTOCOL Hematocrit Auto (Bld) [Volum e fraction]on 03-21-2022 Hematocrit (Bld) [Volume fraction] 29.3 % 37-47 [facility] Work Phone: Laboratory - Chemistry and C hemistry - challengeon 03-21-2022 ALP [Catalytic activity/Vol] 215 U/L 45-117 [facility] Work Phone: ALT [Catalytic activity/Vol] 82 U/L 13-56 [facility] Work Phone: CO2 [Moles/Vol] 22.0 mmol/L 21.0-32.0 [facility] Work Phone: Globulin (S) [Mass/Vol] 4.2 g/dL 2.2-4.2 [facility] Work Phone: Lipase [Catalytic activity/Vol] 147 U/L 73-393 [facility] Work Phone: Urea nitrogen/Creatinine [Mass ratio] 17.3 mg/mg 10-20 [facility] Work Phone: Laboratory - Hematology and Cell countson 03-21-2022 Erythrocyte distribution width (RBC) [Entitic vol] 43.1 fL 35.1-43.9 [facility] Work Phone: Erythrocyte distribution width (RBC) [Ratio] 13.2 % 11.6-14.6 [facility] Work Phone: Immature granulocytes/100 WBC (Bld) 1.000 % 0.0-0.9 [facility] Work Phone: Comment on above: IG% - Immature Granu locytes (promyelocytes, myelocytes and metamyelocytes) > 1% indicates that a LEFT SHIFT is Present. MCH (RBC) [Entitic mass] 30.7 pg 27.0-32.0 [facility] Work Phone: Nucleated RBC/100 WBC (Bld) [Ratio] 0 % 0-5 [facility] Work Phone: MCHC Auto (RBC) [Mass/Vol]on 03-21-2022 MCHC (RBC) [Mass/Vol] 34.5 g/dL 32-36 [facility] Work Phone: No Panel Informationon 03-21 Estimated Creatinine Clearance Calc 37.24 ml/min [facility] Work Phone: Estimated GFR (MDRD) Amer 131 mL/min >60 [facility] Work Phone: Comment on above: GFR Calc Estimated GFR (MDRD) Non-Af Amer 108 mL/min >60 [facility] Work Phone: Comment on above: Non- GFR Calc Platelets bldon 03-21-2022 Platelets (Bld) [#/Vol] 187 10*3/uL 150-450 [facility] Work Phone: Serum or plasma albumin sabino urement (mass/volume)on 03-21-2022 Albumin [Mass/Vol] 2.2 g/dL 3.2-5.0 [facility] Work Phone: Serum or plasma albumin/glob ulin mass ratioon 03-21-2022 Albumin/Globulin [Mass ratio] 0.5 {ratio} 0.9-2.4 [facility] Work Phone: Serum or plasma calcium sabino urement (mass/volume)on 03-21-2022 Calcium [Mass/Vol] 8.2 mg/dL 8.5-10.1 [facility] Work Phone: Serum or plasma creatinine m easurement (mass/volume)on 03-21-2022 Creatinine [Mass/Vol] 0.58 mg/dL 0.55-1.02 [facility] Work Phone: Comment on above: The validity of the calculated GFR & GFRAA in patients over 70 years has not been determined. Clinical correlation is essential. Serum or plasma urea nitroge n measurement (mass/volume)on 03-21-2022 Urea nitrogen [Mass/Vol] 10 mg/dL 7-18 [facility] Work Phone: Thin prep Papanicolaou smear with manual screeningon 03-21-2022 Thin prep Papanicolaou smear with manual screening 65 U/L 15-37 [facility] Work Phone: Thin prep Papanicolaou smear with manual screening 6 5-15 [facility] Work Phone: Absolute lymphocyte counton 03-20-2022 Lymphocytes Auto (Unsp spec) [#/Vol] 1.85 10*3/uL 0.83-4.51 [facility] Work Phone: Basophil percentageon 2021 Basophil percentage >100 SEEN /hpf 0-5 [facility] Work Phone: Basophils/100 WBC (Bld) 0.2 % 0-1 [facility] Work Phone: Bilirubin [Mass/Vol] 3.90 mg/dL 0.20-1.00 [facility] Work Phone: Comment on above: For patients on eltr ombopag therapy, use of Dimension Home TBIL is not recommended. Chloride [Moles/Vol] 102 mmol/L 98-107 [facility] Work Phone: Eosinophils/100 WBC (Bld) 0.6 % 0-5 [facility] Work Phone: Glucose [Mass/Vol] 192 mg/dL 74-106 [facility] Work Phone: Comment on above: Fasting Glucose resu lt greater than or equal to 126 mg/dL suggests DIABETES MELLITUS per A.D.A. criteria. Neutrophils (Bld) [#/Vol] 16.2 10*3/uL 2.0-7.7 [facility] Work Phone: Neutrophils/100 WBC (Bld) 82.7 % 47-70 [facility] Work Phone: Potassium [Moles/Vol] 3.3 mmol/L 3.5-5.1 [facility] Work Phone: Comment on above: Slight Hemolysis, Re sult may be falsely increased. Protein [Mass/Vol] 7.3 g/dL 6.4-8.2 [facility] Work Phone: Sodium [Moles/Vol] 133 mmol/L 136-145 [facility] Work Phone: WBC (Bld) [#/Vol] 19.5 10*3/uL 4.4-11.0 [facility] Work Phone: Bilirubin Test strip Ql (U)o n 03-20-2022 Bilirubin Ql (U) 3 mg/dL Negative [facility] Work Phone: Comment on above: COLOR OF URINE MAY A FFECT DIPSTICK RESULTS. Blood erythrocytes count (nu mber/volume)on 03-20-2022 RBC (Bld) [#/Vol] 3.64 10*6/uL 4.2-5.4 [facility] Work Phone: Blood hemoglobin measurement (mass/volume)on 03-20-2022 Hemoglobin (Bld) [Mass/Vol] 11.6 g/dL 12.0-15.0 [facility] Work Phone: Blood lymphocytes/100 leukoc yteson 03-20-2022 Lymphocytes/100 WBC (Bld) 9.5 % 19-41 [facility] Work Phone: Blood monocytes/100 leukocyt eson 03-20-2022 Monocytes/100 WBC (Bld) 6.0 % 0-10 [facility] Work Phone: Blood platelet mean volumeon 03-20-2022 Platelet mean volume (Bld) [Entitic vol] 10.6 fL 6.2-12.0 [facility] Work Phone: Blood platelet morphology de termination (nominal result)on 03-20-2022 Platelet morphology finding Nom (Bld) CLUMPED [facility] Work Phone: Determination of erythrocyte mean corpuscular volume (MCV)on 03-20-2022 MCV (RBC) [Entitic vol] 88.7 fL 81-99 [facility] Work Phone: Direct bilirubinon 2 Bilirubin.direct [Mass/Vol] 2.33 mg/dL 0.00-0.30 [facility] Work Phone: Hematocrit Auto (Bld) [Volum e fraction]on 03-20-2022 Hematocrit (Bld) [Volume fraction] 32.3 % 37-47 [facility] Work Phone: Ketones Test strip Ql (U)on 03-20-2022 Ketones Ql (U) 15 mg/dl Negative [facility] Work Phone: Laboratory - Chemistry and C hemistry - challengeon 03-20-2022 ALP [Catalytic activity/Vol] 266 U/L 45-117 [facility] Work Phone: ALT [Catalytic activity/Vol] 108 U/L 13-56 [facility] Work Phone: CO2 [Moles/Vol] 22.0 mmol/L 21.0-32.0 [facility] Work Phone: Globulin (S) [Mass/Vol] 4.7 g/dL 2.2-4.2 [facility] Work Phone: Lipase [Catalytic activity/Vol] 61714 U/L 73-393 [facility] Work Phone: Magnesium [Mass/Vol] 2.0 mg/dL 1.6-2.6 [facility] Work Phone: Comment on above: Moderate Hemolysis, Result may be falsely increased. Urea nitrogen/Creatinine [Mass ratio] 30.4 mg/mg 10-20 [facility] Work Phone: Laboratory - Hematology and Cell countson 03-20-2022 Erythrocyte distribution width (RBC) [Entitic vol] 42.5 fL 35.1-43.9 [facility] Work Phone: Erythrocyte distribution width (RBC) [Ratio] 13.2 % 11.6-14.6 [facility] Work Phone: Immature granulocytes/100 WBC (Bld) 1.000 % 0.0-0.9 [facility] Work Phone: Comment on above: IG% - Immature Granu locytes (promyelocytes, myelocytes and metamyelocytes) > 1% indicates that a LEFT SHIFT is Present. MCH (RBC) [Entitic mass] 31.9 pg 27.0-32.0 [facility] Work Phone: Nucleated RBC/100 WBC (Bld) [Ratio] 0 % 0-5 [facility] Work Phone: MCHC Auto (RBC) [Mass/Vol]on 03-20-2022 MCHC (RBC) [Mass/Vol] 35.9 g/dL 32-36 [facility] Work Phone: Mucus LM Ql (Urine sed)on Mucus Ql (Urine sed) 0 SEEN /hpf [facility] Work Phone: Nitrite Test strip Ql (U)on 03-20-2022 Nitrite Ql (U) Negative Negative [facility] Work Phone: No Panel Informationon 03-20 Estimated Creatinine Clearance Calc 37.24 ml/min [facility] Work Phone: Estimated GFR (MDRD) Amer 127 mL/min >60 [facility] Work Phone: Comment on above: GFR Calc Estimated GFR (MDRD) Non-Af Amer 105 mL/min >60 [facility] Work Phone: Comment on above: Non- GFR Calc Thyroid Stimulating Hormone (TSH) 7.14 uIU/mL 0.358-3.74 [facility] Work Phone: Platelets bldon 03-20-2022 Platelets (Bld) [#/Vol] 227 10*3/uL 150-450 [facility] Work Phone: Protein Test strip Ql (U)on 03-20-2022 Protein Ql (U) 100 mg/dl Negative [facility] Work Phone: Serum or plasma albumin sabino urement (mass/volume)on 03-20-2022 Albumin [Mass/Vol] 2.6 g/dL 3.2-5.0 [facility] Work Phone: Serum or plasma calcium sabino urement (mass/volume)on 03-20-2022 Calcium [Mass/Vol] 9.0 mg/dL 8.5-10.1 [facility] Work Phone: Serum or plasma creatinine m easurement (mass/volume)on 03-20-2022 Creatinine [Mass/Vol] 0.59 mg/dL 0.55-1.02 [facility] Work Phone: Comment on above: The validity of the calculated GFR & GFRAA in patients over 70 years has not been determined. Clinical correlation is essential. Serum or plasma urea nitroge n measurement (mass/volume)on 03-20-2022 Urea nitrogen [Mass/Vol] 18 mg/dL 7-18 [facility] Work Phone: Squamous epithelial cells de tection in urine sediment by light microscopyon 03-20-2022 Epithelial cells.squamous LM Ql (Urine sed) 0-5 SEEN /hpf 5-10 [facility] Work Phone: Thin prep Papanicolaou smear with manual screeningon 03-20-2022 Thin prep Papanicolaou smear with manual screening 133 U/L 15-37 [facility] Work Phone: Comment on above: Slight Hemolysis, Re sult may be falsely increased. Thin prep Papanicolaou smear with manual screening 9 5-15 [facility] Work Phone: Urine blood detectionon 02-21 RBC Ql (U) 250 /ul Negative [facility] Work Phone: RBC Ql (U) 5-10 SEEN /hpf 0-5 [facility] Work Phone: Urine clarityon 03-20-2022 Clarity (U) Cloudy Clear [facility] Work Phone: Urine color determinationon 03-20-2022 Color (U) Yellow Yellow [facility] Work Phone: Urine glucose detectionon Glucose Ql (U) 50 mg/dl Normal [facility] Work Phone: Urine leukocyte esterase det ection by dipstickon 03-20-2022 Leukocyte esterase Test strip Ql (U) 500 /ul Negative [facility] Work Phone: Urine pHon 03-20-2022 pH (U) 6.0 [pH] 5.0 - 8.0 [facility] Work Phone: Urine sediment bacteria coun t by microscopy (number/high power field)on 03-20-2022 Bacteria LM.HPF (Urine sed) [#/Area] 4 /[HPF] None Seen [facility] Work Phone: Urine specific gravity measu rementon 03-20-2022 Specific gravity (U) [Rel density] 1.015 1.002-1.030 [facility] Work Phone: Urobilinogen Auto test strip Ql (U)on 03-20-2022 Urobilinogen Ql (U) 12 mg/dl Normal [facility] Work [facility]: Whole blood hemoglobin A1c/t otal hemoglobin ratio (mass fraction)on 03-20-2022 HbA1c (Bld) [Mass fraction] 6.7 % 3.8-5.6 [facility] Work Phone: Comment on above: Normal < 5.7 % Predi abetic 5.7 - 6.4 % Diabetic >or= 6.5 % Please note range changes. Absolute lymphocyte counton 12-22-2021 Lymphocytes Auto (Unsp spec) [#/Vol] 2.26 10*3/uL 0.83-4.51 [facility] Work Phone: Basophil percentageon 2021 Basophils/100 WBC (Bld) 0.5 % 0-1 [facility] Work Phone: Eosinophils/100 WBC (Bld) 2.7 % 0-5 [facility] Work Phone: Neutrophils (Bld) [#/Vol] 2.5 10*3/uL 2.0-7.7 [facility] Work Phone: Neutrophils/100 WBC (Bld) 46.1 % 47-70 [facility] Work Phone: WBC (Bld) [#/Vol] 5.5 10*3/uL 4.4-11.0 [facility] Work Phone: Blood erythrocytes count (nu mber/volume)on 12-22-2021 RBC (Bld) [#/Vol] 3.32 10*6/uL 4.2-5.4 [facility] Work Phone: Blood hemoglobin measurement (mass/volume)on 12-22-2021 Hemoglobin (Bld) [Mass/Vol] 10.4 g/dL 12.0-15.0 [facility] Work Phone: Blood lymphocytes/100 leukoc yteson 12-22-2021 Lymphocytes/100 WBC (Bld) 41.2 % 19-41 [facility] Work Phone: Blood monocytes/100 leukocyt eson 12-22-2021 Monocytes/100 WBC (Bld) 9.1 % 0-10 [facility] Work Phone: Blood platelet mean volumeon 12-22-2021 Platelet mean volume (Bld) [Entitic vol] 9.6 fL 6.2-12.0 [facility] Work Phone: Determination of erythrocyte mean corpuscular volume (MCV)on 12-22-2021 MCV (RBC) [Entitic vol] 90.7 fL 81-99 [facility] Work Phone: [phone] Hematocrit Auto (Bld) [Volum e fraction]on 12-22-2021 Hematocrit (Bld) [Volume fraction] 30.1 % 37-47 [facility] Work Phone: Hemoglobin in reticulocytes (mass per reticulocyte)on 12-22-2021 Hemoglobin (Reticulocytes) [Entitic mass] 34.0 pg 30-35 [facility] Work Phone: Iron measurement (mass/mass) on 12-22-2021 Iron (Unsp spec) [Mass/Mass] 56 ug/dL 50-170 [facility] Work Phone: Laboratory - Chemistry and C hemistry - challengeon 12-22-2021 Cobalamin (Vitamin B12) [Mass/Vol] 1270 pg/mL 211-911 [facility] Work Phone: Laboratory - Hematology and Cell countson 12-22-2021 Erythrocyte distribution width (RBC) [Entitic vol] 44.7 fL 35.1-43.9 [facility] Work Phone: Erythrocyte distribution width (RBC) [Ratio] 13.5 % 11.6-14.6 [facility] Work Phone: Immature granulocytes/100 WBC (Bld) 0.400 % 0.0-0.9 [facility] Work Phone: Comment on above: IG% - Immature Granu locytes (promyelocytes, myelocytes and metamyelocytes) > 1% indicates that a LEFT SHIFT is Present. MCH (RBC) [Entitic mass] 31.3 pg 27.0-32.0 [facility] Work Phone: Nucleated RBC/100 WBC (Bld) [Ratio] 0 % 0-5 [facility] Work Phone: MCHC Auto (RBC) [Mass/Vol]on 12-22-2021 MCHC (RBC) [Mass/Vol] 34.6 g/dL 32-36 [facility] Work Phone: No Panel Informationon 12-22 Immature Reticulocyte Fraction 3.20 % 3.00-15.90 [facility] Work Phone: Reticulocyte Count 1.42 % 0.5-1.5 [facility] Work Phone: Total Iron Binding Capacity 288 ug/dL 250-450 [facility] Work Phone: Platelets bldon 12-22-2021 Platelets (Bld) [#/Vol] 217 10*3/uL 150-450 [facility] Work Phone: Serum or plasma ferritin uzma surement (mass/volume)on 12-22-2021 Ferritin [Mass/Vol] 20 ng/mL 8-252 [facility] Work Phone: Serum or plasma folate measu rement (mass/volume)on 12-22-2021 Folate [Mass/Vol] 16.20 ng/mL 3.1-55.4 [facility] Work Phone: Serum or plasma iron saturat ion measurement (mass fraction)on 12-22-2021 Iron saturation [Mass fraction] 19.4 % 15.0-55.0 [facility] Work Phone: Absolute lymphocyte counton 12-15-2021 Lymphocytes Auto (Unsp spec) [#/Vol] 2.22 10*3/uL 0.83-4.51 [facility] Work Phone: Basophil percentageon 2021 Basophils/100 WBC (Bld) 0.6 % 0-1 [facility] Work Phone: Bilirubin [Mass/Vol] 1.10 mg/dL 0.20-1.00 [facility] Work Phone: Comment on above: For patients on eltr ombopag therapy, use of Dimension Home TBIL is not recommended. Chloride [Moles/Vol] 109 mmol/L 98-107 [facility] Work Phone: Cholesterol [Mass/Vol] 160 mg/dL <200 [facility] Work Phone: Comment on above: <200 mg/dL Desirable 200-240 mg/dL Borderline >240 mg/dL High Risk Eosinophils/100 WBC (Bld) 2.4 % 0-5 [facility] Work Phone: Glucose [Mass/Vol] 248 mg/dL 74-106 [facility] Work Phone: Comment on above: Glucose result great er than or equal to 200 mg/dLsuggests DIABETES MELLITUS per A.D.A. criteria. Neutrophils (Bld) [#/Vol] 2.1 10*3/uL 2.0-7.7 [facility] Work Phone: Neutrophils/100 WBC (Bld) 41.5 % 47-70 [facility] Work Phone: Potassium [Moles/Vol] 3.8 mmol/L 3.5-5.1 [facility] Work Phone: Protein [Mass/Vol] 7.1 g/dL 6.4-8.2 [facility] Work Phone: Sodium [Moles/Vol] 140 mmol/L 136-145 [facility] Work Phone: Triglyceride [Mass/Vol] 67 mg/dL <199 [facility] Work Phone: Comment on above: The drugs N-Acetylcy steine and Metamizole may falsely depress this assay.Serum Triglycerides Reference Interval Normal <150 mg/dL Borderline high 150 - 199 mg/dL High 200 - 499 mg/dL Very High > or = 500 mg/dL WBC (Bld) [#/Vol] 5.0 10*3/uL 4.4-11.0 [facility] Work Phone: Blood erythrocytes count (nu mber/volume)on 12-15-2021 RBC (Bld) [#/Vol] 3.18 10*6/uL 4.2-5.4 [facility] Work Phone: Blood hemoglobin measurement (mass/volume)on 12-15-2021 Hemoglobin (Bld) [Mass/Vol] 9.9 g/dL 12.0-15.0 [facility] Work Phone: Blood lymphocytes/100 leukoc yteson 12-15-2021 Lymphocytes/100 WBC (Bld) 44.8 % 19-41 [facility] Work Phone: Blood monocytes/100 leukocyt eson 12-15-2021 Monocytes/100 WBC (Bld) 10.5 % 0-10 [facility] Work Phone: Blood platelet mean volumeon 12-15-2021 Platelet mean volume (Bld) [Entitic vol] 10.1 fL 6.2-12.0 [facility] Work Phone: Determination of erythrocyte mean corpuscular volume (MCV)on 12-15-2021 MCV (RBC) [Entitic vol] 90.6 fL 81-99 [facility] Work Phone: Hematocrit Auto (Bld) [Volum e fraction]on 12-15-2021 Hematocrit (Bld) [Volume fraction] 28.8 % 37-47 [facility] Work Phone: Laboratory - Chemistry and C hemistry - challengeon 12-15-2021 ALP [Catalytic activity/Vol] 98 U/L 45-117 [facility] Work Phone: ALT [Catalytic activity/Vol] 27 U/L 13-56 [facility] Work Phone: CO2 [Moles/Vol] 23.0 mmol/L 21.0-32.0 [facility] Work Phone: Globulin (S) [Mass/Vol] 4.1 g/dL 2.2-4.2 [facility] Work Phone: Urea nitrogen/Creatinine [Mass ratio] 14.4 mg/mg 10-20 [facility] Work Phone: Laboratory - Hematology and Cell countson 12-15-2021 Erythrocyte distribution width (RBC) [Entitic vol] 46.1 fL 35.1-43.9 [facility] Work Phone: Erythrocyte distribution width (RBC) [Ratio] 13.8 % 11.6-14.6 [facility] Work Phone: Immature granulocytes/100 WBC (Bld) 0.200 % 0.0-0.9 [facility] Work Phone: Comment on above: IG% - Immature Granu locytes (promyelocytes, myelocytes and metamyelocytes) > 1% indicates that a LEFT SHIFT is Present. MCH (RBC) [Entitic mass] 31.1 pg 27.0-32.0 [facility] Work Phone: Nucleated RBC/100 WBC (Bld) [Ratio] 0 % 0-5 [facility] Work Phone: MCHC Auto (RBC) [Mass/Vol]on 12-15-2021 MCHC (RBC) [Mass/Vol] 34.4 g/dL 32-36 [facility] Work Phone: No Panel Informationon 12-15 Estimated GFR (MDRD) Amer 95 mL/min >60 [facility] Work Phone: Comment on above: GFR Calc Estimated GFR (MDRD) Non-Af Amer 79 mL/min >60 [facility] Work Phone: Comment on above: Non- GFR Calc Thyroid Stimulating Hormone (TSH) 4.10 uIU/mL 0.358-3.74 [facility] Work Phone: Vitamin D 25-Hydroxy 27.0 ng/mL [facility] Work Phone: Comment on above: Vitamin D 25(OH) Sta tus Range Deficiency <20 ng/mL (50nmol/L) Insufficiency 20 - 30 ng/mL (50 - 75 nmol/L) Sufficiency 30 - 100 ng/mL (75 - 250 nmol/L) Toxicity >100 ng/mL (>250 nmol/L) Platelets bldon 12-15-2021 Platelets (Bld) [#/Vol] 199 10*3/uL 150-450 [facility] Work Phone: Serum or plasma albumin sabino urement (mass/volume)on 12-15-2021 Albumin [Mass/Vol] 3.0 g/dL 3.2-5.0 [facility] Work Phone: Serum or plasma albumin/glob ulin mass ratioon 12-15-2021 Albumin/Globulin [Mass ratio] 0.7 {ratio} 0.9-2.4 [facility] Work Phone: Serum or plasma calcium sabino urement (mass/volume)on 12-15-2021 Calcium [Mass/Vol] 8.3 mg/dL 8.5-10.1 [facility] Work Phone: Serum or plasma cholesterol in HDL measurement (mass/volume)on 12-15-2021 Cholesterol in HDL [Mass/Vol] 52 mg/dL >40 [facility] Work Phone: Comment on above: The drugs N-Acetylcy steine and Metamizole may falsely depress this assay. Reference Range HDL <40 mg/dL Low HDL Cholesterol HDL >or= 60 mg/dL High HDL Cholesterol Serum or plasma cholesterol in VLDL measurement (mass/volume)on 12-15-2021 Cholesterol in VLDL [Mass/Vol] 13 mg/dL 5-40 [facility] Work Phone: Serum or plasma creatinine m easurement (mass/volume)on 12-15-2021 Creatinine [Mass/Vol] 0.76 mg/dL 0.55-1.02 [facility] Work Phone: Comment on above: The validity of the calculated GFR & GFRAA in patients over 70 years has not been determined. Clinical correlation is essential. Serum or plasma low density lipoprotein (LDL) cholesterol measurement (mass/volume)on 12-15-2021 Cholesterol in LDL [Mass/Vol] 95 mg/dL 0-130 [facility] Work Phone: Serum or plasma urea nitroge n measurement (mass/volume)on 12-15-2021 Urea nitrogen [Mass/Vol] 11 mg/dL 7-18 [facility] Work Phone: Thin prep Papanicolaou smear with manual screeningon 12-15-2021 Thin prep Papanicolaou smear with manual screening 30 U/L 15-37 [facility] Work Phone: Thin prep Papanicolaou smear with manual screening 8 5-15 [facility] Work Phone: Basophil percentageon 2021 Chloride [Moles/Vol] 102 mmol/L 98-107 [facility] Work Phone: Glucose [Mass/Vol] 199 mg/dL 74-106 [facility] Work Phone: Comment on above: Fasting Glucose resu lt greater than or equal to 126 mg/dL suggests DIABETES MELLITUS per A.D.A. criteria. Potassium [Moles/Vol] 4.6 mmol/L 3.5-5.1 [facility] Work Phone: Sodium [Moles/Vol] 132 mmol/L 136-145 [facility] Work Phone: Laboratory - Chemistry and C hemistry - challengeon 09-24-2021 CO2 [Moles/Vol] 24.0 mmol/L 21.0-32.0 [facility] Work Phone: Urea nitrogen/Creatinine [Mass ratio] 16.5 mg/mg 10-20 [facility] Work Phone: No Panel Informationon 09-24 Estimated GFR (MDRD) Amer 111 mL/min >60 [facility] Work Phone: Comment on above: GFR Calc Estimated GFR (MDRD) Non-Af Amer 92 mL/min >60 [facility] Work Phone: Comment on above: Non- GFR Calc Serum or plasma calcium sabino urement (mass/volume)on 09-24-2021 Calcium [Mass/Vol] 8.9 mg/dL 8.5-10.1 [facility] Work Phone: Serum or plasma creatinine m easurement (mass/volume)on 09-24-2021 Creatinine [Mass/Vol] 0.67 mg/dL 0.55-1.02 [facility] Work Phone: Comment on above: The validity of the calculated GFR & GFRAA in patients over 70 years has not been determined. Clinical correlation is essential. Serum or plasma urea nitroge n measurement (mass/volume)on 09-24-2021 Urea nitrogen [Mass/Vol] 11 mg/dL 7-18 [facility] Work Phone: Thin prep Papanicolaou smear with manual screeningon 09-24-2021 Thin prep Papanicolaou smear with manual screening 6 5-15 [facility] Work Phone: Absolute lymphocyte counton 09-15-2021 Lymphocytes Auto (Unsp spec) [#/Vol] 3.60 10*3/uL 0.83-4.51 [facility] Work Phone: [phone] Basophil percentageon 2021 Basophils/100 WBC (Bld) 0.6 % 0-1 [facility] Work Phone: Bilirubin [Mass/Vol] 1.40 mg/dL 0.20-1.00 [facility] Work Phone: Comment on above: For patients on eltr ombopag therapy, use of Dimension Home TBIL is not recommended. Chloride [Moles/Vol] 103 mmol/L 98-107 [facility] Work Phone: Eosinophils/100 WBC (Bld) 1.6 % 0-5 [facility] Work Phone: Glucose [Mass/Vol] 315 mg/dL 74-106 [facility] Work Phone: Comment on above: Glucose result great er than or equal to 200 mg/dLsuggests DIABETES MELLITUS per A.D.A. criteria. Neutrophils (Bld) [#/Vol] 3.7 10*3/uL 2.0-7.7 [facility] Work Phone: Neutrophils/100 WBC (Bld) 45.5 % 47-70 [facility] Work Phone: [phone] Potassium [Moles/Vol] 3.3 mmol/L 3.5-5.1 [facility] Work Phone: [phone] Protein [Mass/Vol] 8.0 g/dL 6.4-8.2 [facility] Work Phone: Sodium [Moles/Vol] 135 mmol/L 136-145 [facility] Work Phone: WBC (Bld) [#/Vol] 8.1 10*3/uL 4.4-11.0 [facility] Work Phone: Blood erythrocytes count (nu mber/volume)on 09-15-2021 RBC (Bld) [#/Vol] 3.86 10*6/uL 4.2-5.4 [facility] Work Phone: Blood hemoglobin measurement (mass/volume)on 09-15-2021 Hemoglobin (Bld) [Mass/Vol] 12.2 g/dL 12.0-15.0 [facility] Work Phone: Blood lymphocytes/100 leukoc yteson 09-15-2021 Lymphocytes/100 WBC (Bld) 44.3 % 19-41 [facility] Work Phone: Blood monocytes/100 leukocyt eson 09-15-2021 Monocytes/100 WBC (Bld) 7.8 % 0-10 [facility] Work Phone: Blood platelet mean volumeon 09-15-2021 Platelet mean volume (Bld) [Entitic vol] 9.9 fL 6.2-12.0 [facility] Work Phone: Determination of erythrocyte mean corpuscular volume (MCV)on 09-15-2021 MCV (RBC) [Entitic vol] 87.8 fL 81-99 [facility] Work Phone: Hematocrit Auto (Bld) [Volum e fraction]on 09-15-2021 Hematocrit (Bld) [Volume fraction] 33.9 % 37-47 [facility] Work Phone: Laboratory - Chemistry and C hemistry - challengeon 09-15-2021 ALP [Catalytic activity/Vol] 131 U/L 45-117 [facility] Work Phone: ALT [Catalytic activity/Vol] 23 U/L 13-56 [facility] Work Phone: CO2 [Moles/Vol] 24.0 mmol/L 21.0-32.0 [facility] Work Phone: Globulin (S) [Mass/Vol] 4.9 g/dL 2.2-4.2 [facility] Work Phone: Urea nitrogen/Creatinine [Mass ratio] 15.6 mg/mg 10-20 [facility] Work Phone: Laboratory - Hematology and Cell countson 09-15-2021 Erythrocyte distribution width (RBC) [Entitic vol] 43.9 fL 35.1-43.9 [facility] Work Phone: Erythrocyte distribution width (RBC) [Ratio] 13.8 % 11.6-14.6 [facility] Work Phone: Immature granulocytes/100 WBC (Bld) 0.200 % 0.0-0.9 [facility] Work Phone: Comment on above: IG% - Immature Granu locytes (promyelocytes, myelocytes and metamyelocytes) > 1% indicates that a LEFT SHIFT is Present. MCH (RBC) [Entitic mass] 31.6 pg 27.0-32.0 [facility] Work Phone: Nucleated RBC/100 WBC (Bld) [Ratio] 0 % 0-5 [facility] Work Phone: MCHC Auto (RBC) [Mass/Vol]on 09-15-2021 MCHC (RBC) [Mass/Vol] 36.0 g/dL 32-36 [facility] Work Phone: No Panel Informationon 09-15 Estimated GFR (MDRD) Amer 104 mL/min >60 [facility] Work Phone: Comment on above: GFR Calc Estimated GFR (MDRD) Non-Af Amer 86 mL/min >60 [facility] Work Phone: Comment on above: Non- GFR Calc Thyroid Stimulating Hormone (TSH) 6.85 uIU/mL 0.358-3.74 [facility] Work Phone: Vitamin D 25-Hydroxy 29.7 ng/mL [facility] Work Phone: Comment on above: Vitamin D 25(OH) Sta tus Range Deficiency <20 ng/mL (50nmol/L) Insufficiency 20 - 30 ng/mL (50 - 75 nmol/L) Sufficiency 30 - 100 ng/mL (75 - 250 nmol/L) Toxicity >100 ng/mL (>250 nmol/L) Platelets bldon 09-15-2021 Platelets (Bld) [#/Vol] 220 10*3/uL 150-450 [facility] Work Phone: Serum or plasma albumin sabino urement (mass/volume)on 09-15-2021 Albumin [Mass/Vol] 3.1 g/dL 3.2-5.0 [facility] Work Phone: Serum or plasma albumin/glob ulin mass ratioon 09-15-2021 Albumin/Globulin [Mass ratio] 0.6 {ratio} 0.9-2.4 [facility] Work Phone: Serum or plasma calcium sabino urement (mass/volume)on 09-15-2021 Calcium [Mass/Vol] 8.9 mg/dL 8.5-10.1 [facility] Work Phone: Serum or plasma creatinine m easurement (mass/volume)on 09-15-2021 Creatinine [Mass/Vol] 0.71 mg/dL 0.55-1.02 [facility] Work Phone: Comment on above: The validity of the calculated GFR & GFRAA in patients over 70 years has not been determined. Clinical correlation is essential. Serum or plasma urea nitroge n measurement (mass/volume)on 09-15-2021 Urea nitrogen [Mass/Vol] 11 mg/dL 7-18 [facility] Work Phone: Thin prep Papanicolaou smear with manual screeningon 09-15-2021 Thin prep Papanicolaou smear with manual screening 26 U/L 15-37 [facility] Work Phone: Thin prep Papanicolaou smear with manual screening 8 5-15 [facility] Work Phone: NM Myocardial Perf Imaging M viktor Specton 02-15-2017 NM Myocardial Perf Imaging Multi Spect Patient Name: SHASHI OSWALD Nuc Med Exam Date/Time 02/15/2017 10:12:43 EDT Exam NM Myocardial Perf Imaging Multi Spect Ordering Physician MD TRENA, JOE Robert Accession Number [id number] CPT4 Codes 80304 (), 95906 (NM EKG TREADMILL - NUCLEAR) Reason For Exam CHEST PAIN, ACUTE CORONARY SYNDROME SUSPECT Report *Nuclear Cardiology* [place] [address] Fax #: [email or web address] --- Nuclear Stress Myocardial Perfusion Study Regadenoson Protocol Gated SPECT Patient: Shashi Oswald Height: (61 in) Weight: (141.9 lb) : 1945 Age: 71 Gender: F Study Date: 02/15/2017 Accession#: Patient Room #: *ORDERING PHYSICIAN: * Joe Hein *SUPERVISING PHYSICIAN: * Raymundo Murphy, *RN: * Damaris Bright MD *RADIOLOGIST: * Jazmin Diego MD *NUCLEAR TECH: * Deepti Sanchez *READING PHYSICIAN: * Ash Orourke MD, [facility] --- Indications: Chest pain. --- Summary: [...] peak heart rate and blood pressure [place] [address]30 mm Hg/min. The patient experienced no chest [...] pm Signed by: MD. BRYCE, ASH BEEBE [facility] Yifan Pereraon 7 NM Rad [place] Patient Name: SHASHI OSWALD Nuc Med Exam Date/Time 02/15/2017 08:18:01 EDT Exam NM Rad [facility] Ordering Physician YIFAN PERERA Accession Number [id number] Reason For Exam Yifan perera Report --- Indications: Chest pain. --- Summary: 1. No evidence of stress-induced ischemia following pharmacologic stress. 2. Stress ECG conclusions: The stress ECG is normal. Radiologist Confirmation: The SPECT perfusion imaging portion of the study was interpreted and reported by aJzmin Diego MD --- History: Chest Pain/ discomfort [...] peak heart rate and blood pressure [place] 8[address]67 mm Hg/min. The patient experienced no chest [...] and Time: 02/03/2018 9:58 Transcribed By:ROSALINDA Normal [facility] Basic Metabolic Panelon 06-2 Anion gap 12 mmol/L Normal [facility] Comment on above: Performed By: #### H EMOG, BMP3, TROPN, LIPD2, TSH4, HA1C2 ####[address] [address] [place] [address] Creatinine 0.62 mg/dL Normal 0.55-1.40 [facility] Comment on above: Performed By: #### H EMOG, BMP3, TROPN, LIPD2, TSH4, HA1C2 ####[address] [address] eGFR (black) mL/min/{1.73_m2} Normal >60 [facility] Comment on above: Performed By: #### H EMOG, BMP3, TROPN, LIPD2, TSH4, HA1C2 ####[address] [address] [place] [address] eGFR (non-black) mL/min/{1.73_m2} Normal >[address] [facility] Comment on above: Result Comment: Sour ce- MDRD equation with creatinine calibration to IDMS(NKDEP)eGFR not recommended for drug dose adjustment Performed By: #### H EMOG, BMP3, TROPN, LIPD2, TSH4, HA1C2 ####[address] [address] [place] [address] CO2 20 mmol/L Low 21-32 [facility] Comment on above: Performed By: #### H EMOG, BMP3, TROPN, LIPD2, TSH4, HA1C2 ####[address] [place] [address] Glucose mass conc 201 mg/dL High 70-100 [facility] Comment on above: Performed By: #### H EMOG, BMP3, TROPN, LIPD2, TSH4, HA1C2 ####[address] [place] [address] Urea nitrogen 14 mg/dL Normal 7-25 [facility] Comment on above: Performed By: #### H EMOG, BMP3, TROPN, LIPD2, TSH4, HA1C2 ####[address] [place] [address] Calcium 9.2 mg/dL Normal 8.2-10.1 [facility] Comment on above: Performed By: #### H EMOG, BMP3, TROPN, LIPD2, TSH4, HA1C2 ####[address] [place] [address] Chloride 104 mmol/L Normal 98-109 [facility] Comment on above: Performed By: #### H EMOG, BMP3, TROPN, LIPD2, TSH4, HA1C2 ####[address] [place] [address] Potassium molar conc 3.6 mmol/L Normal 3.5-5.1 [facility] Comment on above: Performed By: #### H EMOG, BMP3, TROPN, LIPD2, TSH4, HA1C2 ####[address] [address] Sodium 136 mmol/L Normal 135-145 [facility] Comment on above: Performed By: #### H EMOG, BMP3, TROPN, LIPD2, TSH4, HA1C2 ####[place] [address] Hemoglobin A1Con 02-14-2017 Glucose mass conc 143 mg/dL Normal [facility] Comment on above: Performed By: #### H EMOG, BMP3, TROPN, LIPD2, TSH4, HA1C2 ####[place] [address] Hemoglobin A1c/Hemoglobin.total mass fraction (Bld) 6.6 % High 4.0-5.6 [facility] Comment on above: Result Comment: --Hg bA1C levels may not be accurate in patients who haverenal disease, received recent blood transfusions, are anemic,or who have dyshemoglobinemia. Performed By: #### H EMOG, BMP3, TROPN, LIPD2, TSH4, HA1C2 ####[place] [address] Hemogramon 02-14-2017 Erythrocyte distribution width Auto Ratio (RBC) 14.6 % High 11.5-14.5 [facility] Comment on above: Performed By: #### H EMOG, BMP3, TROPN, LIPD2, TSH4, HA1C2 ####[place] [address] Erythrocytes (RBC) 3.71 10*6/uL Low 3.80-5.20 [facility] Comment on above: Performed By: #### H EMOG, BMP3, TROPN, LIPD2, TSH4, HA1C2 ####[place] [address] Hematocrit (HCT) 33.2 % Low 35.0-47.0 [facility] Comment on above: Performed By: #### H EMOG, BMP3, TROPN, LIPD2, TSH4, HA1C2 ####[address] [address] Hemoglobin mass conc (Bld) 11.4 g/dL Low 11.7-16.0 [facility] Comment on above: Performed By: #### H EMOG, BMP3, TROPN, LIPD2, TSH4, HA1C2 ####[address] [address] MCH 30.9 pg Normal 26.0-34.0 [facility] Comment on above: Performed By: #### H EMOG, BMP3, TROPN, LIPD2, TSH4, HA1C2 ####[address] [address] MCHC mass conc (RBC) 34.4 % Normal 32.0-36.0 [facility] Comment on above: Performed By: #### H EMOG, BMP3, TROPN, LIPD2, TSH4, HA1C2 ####[address] [address] MCV 89.7 fL Normal 79.0-98.0 [facility] Comment on above: Performed By: #### H EMOG, BMP3, TROPN, LIPD2, TSH4, HA1C2 ####[address] [address] Platelet mean volume (PMV) 8.2 fL Normal 7.4-10.4 [facility] Comment on above: Performed By: #### H EMOG, BMP3, TROPN, LIPD2, TSH4, HA1C2 ####[address] [address] Platelets 238 10*3/uL Normal 140-440 [facility] Comment on above: Performed By: #### H EMOG, BMP3, TROPN, LIPD2, TSH4, HA1C2 ####[address] [address] WBC (Leukocytes) 9.1 10*3/uL Normal 3.6-10.7 [facility] Comment on above: Performed By: #### H EMOG, BMP3, TROPN, LIPD2, TSH4, HA1C2 ####[address] [address] Lipid Panelon 02-14-2017 Cholesterol to HDL Ratio 3 {ratio} Normal [facility] Comment on above: Result Comment: Ref Range:< 3 Low Risk for CHD3-6 Mod Risk for CHD> 6 High Risk for CHD Performed By: #### H EMOG, BMP3, TROPN, LIPD2, TSH4, HA1C2 ####[address] [address] HDL Cholesterol 42 mg/dL Normal 40-59 [facility] Comment on above: Performed By: #### H EMOG, BMP3, TROPN, LIPD2, TSH4, HA1C2 ####[address] [address] Low Density Lipoprotein 48 mg/dL Normal <100 [facility] Comment on above: Performed By: #### H EMOG, BMP3, TROPN, LIPD2, TSH4, HA1C2 ####[address] [address] Cholesterol 125 mg/dL Normal < 200 [facility] Comment on above: Performed By: #### H EMOG, BMP3, TROPN, LIPD2, TSH4, HA1C2 ####[address] [address] Triglyceride 176 mg/dL Abnormal <150 [facility] Comment on above: Performed By: #### H EMOG, BMP3, TROPN, LIPD2, TSH4, HA1C2 ####[address] [address] Thyroid Stim. Hormoneon 01-22 Thyroid Stim. Hormone 1.430 uU/mL Normal 0.358-3.740 [facility] Comment on above: Performed By: #### H EMOG, BMP3, TROPN, LIPD2, TSH4, HA1C2 ####[address] [address] Troponin Ion 06-25-2017 Troponin I.cardiac mass conc 0.544 ng/mL High 0.000-0.045 [facility] Comment on above: Result Comment: 0.04 6 - 0.400 = Indeterminate> 0.400 = Consider Myocardial Injury Performed By: #### T ROPN ####[address] [address] Troponin I.cardiac mass conc 0.709 ng/mL High 0.000-0.045 [facility] Comment on above: Result Comment: 0.04 6 - 0.400 = Indeterminate> 0.400 = Consider Myocardial Injury Performed By: #### T ROPN ####[place] [address] Troponin I.cardiac mass conc 0.844 ng/mL High 0.000-0.045 [facility] Comment on above: Result Comment: 0.04 6 - 0.400 = Indeterminate> 0.400 = Consider Myocardial Injury Performed By: #### H EMOG, BMP3, TROPN, LIPD2, TSH4, HA1C2 ####[address] [address] Urinalysis,Macroon 7 Bilirubin (direct) Negative Normal Negative [facility] Comment on above: Performed By: #### U AMAC ####[address] [address] Ketone,Urine Negative Normal Negative [facility] Comment on above: Performed By: #### U AMAC ####[address] [address] Occult Blood,Ur Negative Normal Negative [facility] Comment on above: Performed By: #### U AMAC ####[address] [address] Specific [place],Urine 1.010 Normal 1.005-1.030 [facility] Comment on above: Performed By: #### U AMAC ####[address] [address] Total Protein,Urine Negative Normal Negative [facility] Comment on above: Performed By: #### U AMAC ####[place] [address] [place] [address] Urine, appearance clear Normal Clear [facility] Comment on above: Performed By: #### U AMAC ####[place] [address] [place] [address] Urine, color p. yel Normal Lt. Yellow [facility] Comment on above: Performed By: #### U AMAC ####[place] [address] [place] [address] Urine, glucose presence 1000 mg/dL Normal Negative [facility] Comment on above: Performed By: #### U AMAC ####[place] [address] [place] [address] Urine, nitrite presence Negative Normal Negative [facility] Comment on above: Performed By: #### U AMAC ####[place] [address] [place] [address] Urine, pH 5.0 [pH] Normal 5.0-8.0 [facility] Comment on above: Performed By: #### U AMAC ####[place] [address] [place] [address] Urine, urobilinogen 1 mg/dL Normal 0-1 [facility] Comment on above: Performed By: #### U AMAC ####[place] [address] [place] [address] WBC (Leukocytes) Negative Normal Negative [facility] Comment on above: Performed By: #### U AMAC ####[place] [address] [place] [address] Culture, urine Bacteria identified Cx Nom (U) Presumptive E. coli [facility] Work Phone: Vital Signs Date Time Vital Sign Value Performing Clinician Mable monge 03-18-2025 12:23-0400 Body temperature 98.3 [degF] Dr. Candleario Santana MD Work Phone: [facility] 03-18-2025 12:23-0400 Diastolic blood pressure 51 mm[Hg] Dr. Candelario Santana MD Work Phone: [facility] 03-18-2025 12:23-0400 Heart rate 69 /min Dr. Candelario Santana MD Work Phone: 0(302)612-355137 [place] [address] 03-18-2025 12:23-0400 Respiratory rate 12 /min Dr. Candelario Santana MD Work Phone: 9(712)951-578637 [place] [address] 03-18-2025 12:23-0400 SaO2% (BldA) [Mass fraction] 100 % Dr. Candelario Santana MD Work Phone: 3(742)967-529537 [place] [address] 03-18-2025 12:23-0400 Systolic blood pressure 118 mm[Hg] Dr. Candelario Santana MD Work Phone: 8(052)637-140237 [place] [address] 03-18-2025 10:21-0400 Body height 157.[address] Candelario Santana MD Work Phone: 0(184)712-654637 [place] [address] 03-18-2025 10:21-0400 Body mass index (BMI) [Ratio] 23.1 kg/m2 Dr. Candelario Santana MD Work Phone: 9(468)463-644437 [place] [address] 03-18-2025 10:21-0400 Body weight 57.[address] Candelario Santana MD Work Phone: 1(301)683-940937 [place] [address] 03-09-2025 08:10-0400 Diastolic blood pressure 46 mm[Hg] Dr. Candelario Santana MD Work Phone: 3(119)091-231837 [place] [address] 03-09-2025 08:10-0400 Heart rate 63 /min Dr. Candelario Santana MD Work Phone: 7(131)687-348437 [place] [address] 03-09-2025 08:10-0400 Systolic blood pressure 146 mm[Hg] Dr. Candelario Santana MD Work Phone: 9(111)541-162837 [place] [address] 03-09-2025 06:00-0400 Body temperature 97.9 [degF] Dr. Candelario Santana MD Work Phone: 7(991)023-912137 [place] [address] 03-09-2025 06:00-0400 Respiratory rate 16 /min Dr. Candelario Santana MD Work Phone: 7(294)792-500537 [place] [address] 03-09-2025 06:00-0400 SaO2% (BldA) [Mass fraction] 99 % Dr. Candelario Santana MD Work Phone: 4(166)458-527586 [place] [address] 03-07-2025 06:00-0400 Body mass index (BMI) [Ratio] 23.5 kg/m2 Dr. Candelario Santana MD Work Phone: 3(541)120-671137 [place] [address] 03-07-2025 06:00-0400 Body weight 58.[address] Candelario Santana MD Work Phone: 0(436)912-926937 [place] [address] 03-04-2025 13:25-0400 Body height 157.[address] aCndelario Santana MD Work Phone: 7(772)269-124437 [place] [address] 02-21-2025 12:07-0400 Body temperature 97.8 [degF] Dr. Candelario Santana MD Work Phone: 8(842)328-784537 [place] [address] 02-21-2025 12:07-0400 Diastolic blood pressure 56 mm[Hg] Dr. Candelario Santana MD Work Phone: 9(456)924-961637 [place] [address] 02-21-2025 12:07-0400 Heart rate 81 /min Dr. Candelario Santana MD Work Phone: 8(854)728-024437 [place] [address] 02-21-2025 12:07-0400 Respiratory rate 16 /min Dr. Candelario Santana MD Work Phone: 3(296)808-391937 [place] [address] 02-21-2025 12:07-0400 SaO2% (BldA) [Mass fraction] 100 % Dr. Candelario Santana MD Work Phone: 1(052)637-216937 [place] [address] 02-21-2025 12:07-0400 Systolic blood pressure 122 mm[Hg] Dr. Candelario Santana MD Work Phone: 9(196)607-570537 [place] [address] 02-19-2025 12:27-0400 Body height 154.[address] Candelario Santana MD Work Phone: 6(918)335-209537 [place] [address] 02-19-2025 12:27-0400 Body weight 57.[address] Candelario Santana MD Work Phone: 9(291)934-193637 [place] [address] 02-16-2025 08:45-0400 Inhaled oxygen flow rate 2 L/min Dr. Candelario Santana MD Work Phone: [facility] 02-15-2025 16:04-0400 Body mass index (BMI) [Ratio] 23.8 kg/m2 Dr. Candelario Santana MD Work Phone: [facility] 02-15-2025 15:32-0400 Body temperature 98.6 [degF] Dr. Candelario Santana MD Work Phone: 6(618)194-090186 [place] [address] 02-15-2025 15:32-0400 Diastolic blood pressure 66 mm[Hg] Dr. Candelario Santana MD Work Phone: 1(403)347-701386 [place] [address] 02-15-2025 15:32-0400 Heart rate 78 /min Dr. Candelario Santana MD Work Phone: 8(641)623-376686 [place] [address] 02-15-2025 15:32-0400 Respiratory rate 15 /min Dr. Candelario Santana MD Work Phone: 3(264)859-688286 [place] [address] 02-15-2025 15:32-0400 SaO2% (BldA) [Mass fraction] 100 % Dr. Candelario Santana MD Work Phone: 2(885)866-448386 [place] [address] 02-15-2025 15:32-0400 Systolic blood pressure 113 mm[Hg] Dr. Candelario Santana MD Work Phone: [facility] 02-15-2025 13:11-0400 Body height 154.[address] Candelario Santana MD Work Phone: [facility] 02-15-2025 13:11-0400 Body mass index (BMI) [Ratio] 26.9 kg/m2 Dr. Candelario Santana MD Work Phone: [facility] 02-15-2025 13:11-0400 Body weight 64.[address] Candelario Santana MD Work Phone: [facility] 11-24-2022 14:15-0400 Body temperature 97.4 [degF] Dr. Candelario Santana Work Phone: [facility] 11-24-2022 14:15-0400 Diastolic blood pressure 61 mm[Hg] Dr. Candelario Santana Work Phone: [facility] 11-24-2022 14:15-0400 Heart rate 69 /min Dr. Cadnelario Santana Work Phone: [facility] 11-24-2022 14:15-0400 Respiratory rate 16 /min Dr. Candelario Santana Work Phone: [facility] 11-24-2022 14:15-0400 SaO2% (BldA) [Mass fraction] 100 % Dr. Candelario Santana Work Phone: [facility] 11-24-2022 14:15-0400 Systolic blood pressure 106 mm[Hg] Dr. Candelario Santana Work Phone: 2(184)598-346686 [place] [address] 11-24-2022 11:22-0400 Body height 154.[address] Candelario Santana Work Phone: 7(747)096-402186 [place] [address] 11-24-2022 11:22-0400 Body mass index (BMI) [Ratio] 26 kg/m2 Dr. Candelario Santana Work Phone: 8(217)812-706186 [place] [address] 11-24-2022 11:22-0400 Body weight 62.[address] Candelario Santana Work Phone: 5(517)412-805786 [place] [address] 06-18-2022 15:27-0400 Body height 154.[address] Candelario Santana Work Phone: 4(623)126-014486 [place] [address] 06-18-2022 15:27-0400 Body mass index (BMI) [Ratio] 26.3 kg/m2 Dr. Candelario Santana Work Phone: [facility] 06-18-2022 15:27-0400 Body weight 63.[address] Candelario Santana Work Phone: 9(712)909-754686 [place] [address] 03-21-2022 09:34-0400 Body temperature 97.8 [degF] Dr. Candelario Santana Work Phone: [facility] Work Phone: 03-21-2022 09:34-0400 Diastolic blood pressure 66 mm[Hg] Dr. Candelario Santana Work Phone: [facility] Work Phone: 03-21-2022 09:34-0400 Heart rate 73 /min Dr. Candelario Santana Work Phone: [facility] Work Phone: 03-21-2022 09:34-0400 Respiratory rate 18 /min Dr. Candelario Santana Work Phone: [facility] Work Phone: 03-21-2022 09:34-0400 SaO2% (BldA) [Mass fraction] 97 % Dr. Candelario Santana Work Phone: [facility] Work Phone: 03-21-2022 09:34-0400 Systolic blood pressure 127 mm[Hg] Dr. Candelario Santana Work Phone: [facility] Work Phone: 03-21-2022 06:00-0400 Body weight 69.[address] Candelario Santana Work Phone: [facility] Work Phone: 03-20-2022 10:23-0400 Body height 154.[address] Candelario Santana Work Phone: [facility] Work Phone: 03-20-2022 10:23-0400 Body mass index (BMI) [Ratio] 25.8 kg/m2 Dr. Candelario Santana Work Phone: [facility] Work Phone: 03-20-2022 04:57-0400 Body temperature 98 [degF] Dr. Candelario Santana Work Phone: [facility] Work Phone: 03-20-2022 04:57-0400 Diastolic blood pressure 75 mm[Hg] Dr. Candelario Santana Work Phone: [facility] Work Phone: 03-20-2022 04:57-0400 Heart rate 77 /min Dr. Candelario Santana Work Phone: [facility] Work Phone: 03-20-2022 04:57-0400 Respiratory rate 16 /min Dr. Candelario Santana Work Phone: [facility] Work Phone: 03-20-2022 04:57-0400 SaO2% (BldA) [Mass fraction] 97 % Dr. Candelario Santana Work Phone: [facility] Work Phone: 03-20-2022 04:57-0400 Systolic blood pressure 98 mm[Hg] Dr. Candelario Santana Work Phone: [facility] Work Phone: 03-20-2022 02:07-0400 Body height 154.[address] Candelario Santana Work Phone: [facility] Work Phone: 03-20-2022 02:07-0400 Body mass index (BMI) [Ratio] 28 kg/m2 Dr. Candelario Santana Work Phone: [facility] Work Phone: 03-20-2022 02:07-0400 Body weight 67.[address] Candelario Santana Work Phone: [facility] Work Phone: Encounters Encounter Date Encounter Type Care Provider Facility Start: 05-11-2025 ambulatory Candelario Chi Max [facility] Start: 04-26-2025 ambulatory Candelario Chi Max [facility] Start: 04-10-2025 ambulatory Candelario Chi Max [facility] Start: 03-29-2025 End: 03-29-[address] Steve Werner MD -[facility] Start: 03-29-2025 End: 03-29-[address] Candelario Santana MD Work Phone: [facility] Start: 03-22-2025 ambulatory Candelario Chi Max Facility:[facility] Start: 03-20-2025 ambulatory Candelario Chi Max Facility:[facility] Start: 03-20-[address] Pineda shen MD -[facility] Start: 03-18-2025 End: 03-18-2025 Emergency department patient visit Dr. Candelario Santana MD Work Phone: -Emergency Department Work Phone: Start: 03-13-2025 ambulatory Pineda Morrison [facility] ity:[facility] Start: 03-13-[address] Pineda shen MD -[facility] Start: 03-08-2025 Non-patient / Non-visit Dr. Katie Bah DO [facility] Work Phone: Start: 03-06-2025 Non-patient / Non-visit Dr. Katie Bah DO [facility] Work Phone: Start: 03-05-2025 Non-patient / Non-visit [facility] Start: 03-05-2025 Non-patient / Non-visit Dr. Katie Bah [facility] Work Phone: Start: 03-01-2025 ambulatory Katie Bah Facility:[facility] Start: 03-01-2025 Non-patient / Non-visit Dr. Baldev Kaba MD -[facility] Start: 03-01-2025 Non-patient / Non-visit Dr. Katie Bah DO [facility] Work Phone: Start: 02-28-2025 Non-patient / Non-visit Dr. Katie Bah DO [facility] Work Phone: Start: 02-27-2025 ambulatory Candelario Chi Max [facility] Start: 02-27-2025 Non-patient / Non-visit Dr. Steve Werner MD -[facility] Start: 02-26-2025 Non-patient / Non-visit Dr. Katie Bah DO [facility] Work Phone: Start: 02-23-2025 Non-patient / Non-visit Lizet Judyjaquan [facility] Work Phone: Start: 02-22-2025 Non-patient / Non-visit Katie Kimjaquan [facility] Work Phone: Start: 02-21-2025 ambulatory Katie Bah Facility:[facility] Start: 02-21-2025 End: 03-09-2025 Evaluation and management of inpatient Dr. Katie JettLizet Sementi -Rehab Unit Work Phone: Start: 02-21-2025 Non-patient / Non-visit Dr. [facility] Work Phone: Start: 02-20-2025 Non-patient / Non-visit [facility]. [facility] Work Phone: Start: 02-19-2025 Non-patient / Non-visit [facility]. [facility] Work Phone: Start: 02-19-2025 [facility] / [facility] Start: 02-18-2025 Non-patient / Non-visit [facility]. [facility] Work Phone: Start: 02-17-2025 Non-patient / [facility] Start: 02-17-2025 Non-patient / Non-visit Dr. G[facility] Work Phone: Start: 02-16-2025 Non-patient / [facility] Start: 02-16-2025 Non-patient / Non-[facility] Work Phone: Start: 02-16-2025 End: 02-16-2025 ambulatory Lakeshia Chace Facility:[facility] Start: 02-16-2025 End: 02-16-2025 Non-patient / Non-visit [facility]. [facility] Work Phone: Start: 02-15-2025 ambulatory Lakeshia Mas Facility:[facility] Start: 02-15-2025 End: 02-21-2025 Evaluation and management of inpatient Dr. Lakeshia Mas MD -[facility] 3 Work Phone: Start: 12-27-2024 End: 12-27-[address] Candelario Santana MD Work Phone: [facility] Work Phone: Start: 12-27-2024 End: 12-27-[address] Candelario Santana MD -Laboratory Work Phone: Start: 12-27-2024 End: 12-27-2024 [facility] Start: 09-25-2024 End: 09-25-[address] Candelario Santana MD -Laboratory Work Phone: Start: 09-25-2024 End: 09-25-2024 ambulatory [facility] Facility:[facility] Start: 07-19-2024 ambulatory [facility] Start: 06-21-2024 End: 06-21-2024 ambulatory [facility] Facility:[facility] Start: 12-20-2023 End: 12-20-2023 ambulatory [facility] Work Phone: Start: 12-20-2023 End: 12-20-2023 Patient encounter procedure [facility] Work Phone: Start: 09-21-2023 End: 09-21-2023 ambulatory [facility] Work Phone: Start: 09-21-2023 End: 09-21-2023 Patient encounter procedure [facility], Phy Office 3rd Flr Start: 06-15-2023 End: 06-15-2023 Patient encounter procedure [facility], Phy Office 3rd Flr Start: 03-17-2023 End: 03-17-[address] Candelario Santana Work Phone: [facility] Work Phone: Start: 03-17-2023 End: 03-17-[address] [facility] Start: 12-21-2022 End: 12-21-[address] Candelario Santana Work Phone: [facility] Work Phone: Start: 12-21-2022 End: 12-21-[address] Candelario Santana [facility] Office 3rd Flr Start: 12-16-2022 End: 12-16-[address] Candelario Santana Work Phone: [facility] Work Phone: Start: 12-16-2022 End: 12-16-[address] Candelario Santana [facility] Office 3rd Flr Start: 12-09-2022 End: 12-09-[address] Candelario Santana Work Phone: [facility] Start: 11-24-2022 Non-patient / Non-visit Dr. Candelario Santnaa Work Phone: [facility] Start: 11-24-2022 End: 11-24-2022 Non-patient / Non-visit Dr. Candelario Santana Work Phone: [facility] Start: 11-24-2022 End: 11-24-2022 Admission to same day surgery center Dr. Candelario Santana Work Phone: [facility] Start: 11-24-2022 End: 11-24-[address] Candelario Santana Work Phone: [facility] Work Phone: Start: 09-16-2022 End: 09-16-[address] Candelario Santana Work Phone: [facility] Work Phone: Start: 09-16-2022 End: 09-16-[address] Candelario Santana Work Phone: [facility], y Office 3rd Flr Start: 09-10-2022 End: 09-10-[address] Candelario Santana Work Phone: [facility] Start: 07-08-2022 End: 07-08-[address] Candelario Santana Work Phone: [facility] Work Phone: Start: 07-08-2022 End: 07-08-[address] Candelario Santana Work Phone: [facility] Office 3rd Flr Start: 06-18-2022 End: 06-18-[address] Candelario Santana Work Phone: [facility] Start: 05-25-2022 End: 05-25-[address] Candelario Santana Work Phone: [facility] Work Phone: Start: 05-25-2022 End: 05-25-[address] Candelario Santana Work Phone: [facility], [facility] Office 3rd Flr Start: 04-09-2022 End: 04-09-[address] Candelario Santana Work Phone: [facility] Work Phone: Start: 04-09-2022 End: 04-09-[address] Candelario Santana Work Phone: [facility], [facility] Office 3rd Flr Start: 03-21-2022 Non-patient / Non-visit Dr. Candelario Santana Work Phone: [facility] Start: 03-20-2022 Non-patient / Non-visit Dr. Candelario Santana Work Phone: [facility] Start: 03-20-2022 End: 03-21-2022 Evaluation and management of inpatient Dr. Candelario Santana [facility] Start: 03-20-2022 Non-patient / Non-visit Dr. Candelario Santana Work Phone: [facility] Start: 12-22-2021 End: 12-22-2021 [facility] Start: 12-15-2021 End: 12-15-2021 [facility] Start: 09-24-2021 End: 09-24-2021 [facility] Start: 09-15-2021 End: 09-15-2021 [facility] Start: 03-05-2017 Ambulatory Joe Lindatobin [facility] Start: 02-18-2017 End: 02-19-2017 Ambulatory [facility] ID REFERRING Facility:[facility] Start: 02-13-2017 Emergency department patient visit Abhay Jarvis [facility] Procedures Date Procedure Procedure Detail Performing Clinician [...] Work Phone: Comment on above: Performed at: [place] [id number] Director: Danielito العلي PhD, Phone: [phone] Start: 02-16-2025 Vitamin D, 25-hydroxy measurement Dr. [...] of pelvis Pelvis 1 or 2 Views [facility] Start: 03-29-2025 XR Pelvis 1 or 2 Views [facility] Start: 03-29-2025 Plain X-ray of hip Hip uni 4+ views with Pelvis [facility] Start: 03-29-2025 XR Hip Views [facility] Start: 03-29-2025 Plain X-ray of femur Femur Min 2 Views [facility] Start: 03-29-2025 XR Femur 2 Views [facility] [facility] Start: 03-18-2025 [facility] Start: 03-09-2025 Patient discharge [facility] Start: 03-02-2025 [facility] Start: 02-23-2025 Introduction of urinary catheter [facility] Start: 02-22-2025 Speech therapy assessment [facility] Start: 02-21-2025 End: 02-22-2025 Patient referral to dietitian [facility] Start: 02-21-2025 Following clinical pathway protocol [facility] Start: 02-21-2025 Recommendation to continue with treatment [facility] Start: 02-21-2025 Implementation of planned interventions [facility] Start: 02-21-2025 Referral to service [facility] Start: 02-21-2025 Urinary bladder training [facility] Start: 02-21-2025 Admission procedure [facility] Start: 02-21-2025 Measuring intake and output [facility] Start: 02-21-2025 Referral to occupational therapist [facility] Start: 02-21-2025 Vital signs measurements [facility] Start: 02-21-2025 End: 02-21-2025 [facility] Start: 02-21-2025 Patient discharge [facility] Start: 02-21-2025 Application of device [facility] Start: 02-17-2025 End: 02-17-2025 [facility] Start: 02-17-2025 Ambulation therapy management [facility] Start: 02-17-2025 Application of device [facility] Start: 02-17-2025 Exercises [facility] Start: 02-17-2025 Following clinical pathway protocol [facility] Start: 02-17-2025 Introduction of urinary catheter [facility] Start: 02-17-2025 Neurovascular assessment [facility] Start: 02-17-2025 Patient education [facility] Start: 02-17-2025 Provision of activity privileges [facility] Start: 02-17-2025 Referral to occupational therapist [facility] Start: 02-17-2025 Referral to service [facility] Start: 02-17-2025 Vital signs measurements [facility] Start: 02-17-2025 Wound care [facility] Start: 02-17-2025 Ambulation therapy management [facility] Start: 02-16-2025 Administration of blood product [facility] Start: 02-16-2025 [facility] Start: 02-16-2025 Open reduction of fracture of femur with internal fixation ORIF, Hip, Gamma Nail (Left) [facility] Start: 02-15-2025 Application of intermittent pneumatic compression device [facility] Start: 02-15-2025 Following clinical pathway protocol [facility] Start: 02-15-2025 Assessment of risk of venous thromboembolism [facility] Start: 02-15-2025 Care regimes management [facility] Start: 02-15-2025 Consultation [facility] Start: 02-15-2025 Inhalation therapy procedure [facility] Start: 02-15-2025 Insertion of catheter into peripheral vein [facility] Start: 02-15-2025 Notification of physician [facility] Start: 02-15-2025 Providing care according to standard [facility] Start: 02-15-2025 Referral to occupational therapist [facility] Start: 02-15-2025 Referral to service [facility] Start: 02-15-2025 End: 02-15-2025 [facility] Start: 02-15-2025 Verification routine [facility] Start: 02-15-2025 Admission procedure [facility] Start: 02-15-2025 Hospital admission, emergency, from emergency room, medical nature [facility] Start: 02-15-2025 [facility] Start: 02-15-2025 Patient referral to dietitian [facility] Start: 11-24-2022 Anesthesia upper gi endoscopic px ercp ANES UPR GI NDSC PX ERCP [facility] Start: 11-24-2022 Ercp remove calculi/debris biliary/pancreas duct ERCP REMOVE DUCT CALCULI [facility] Start: 11-24-2022 Ercp remove foreign body/stent biliary/panc duct ERCP REMOVE FORGN BODY DUCT [facility] Start: 11-24-2022 Ercp w/sphincterotomy/papillotomy ENDO CHOLANGIOPANCREATOGRAPH [facility] Start: 11-24-2022 Endoscopic retrograde cholangiopancreatography ERCP Biliary/Pancreas [facility] Start: 11-24-2022 RF Guidance for endoscopy of Biliary ducts and Pancreatic duct-- W contrast retrograde [facility] Start: 11-24-2022 Patient discharge [facility] Start: 03-21-2022 Patient discharge [facility] Work Phone: Start: 03-20-2022 Application of intermittent pneumatic compression device [facility] Work Phone: Start: 03-20-2022 Catheterization of vein [facility] Work Phone: Start: 03-20-2022 Following clinical pathway protocol [facility] Work Phone: Start: 03-20-2022 Assessment of risk of venous thromboembolism [facility] Work Phone: Start: 03-20-2022 Care regimes management [facility] Work Phone: Start: 03-20-2022 Fall prevention [facility] Work Phone: Start: 03-20-2022 Incentive spirometry [facility] Work Phone: Start: 03-20-2022 Inhalation therapy procedure [facility] Work Phone: Start: 03-20-2022 Insertion of catheter into peripheral vein [facility] Work Phone: Start: 03-20-2022 Introduction of urinary catheter [facility] Work Phone: Start: 03-20-2022 Measuring intake and output [facility] Work Phone: Start: 03-20-2022 Oxygen therapy [facility] Work Phone: Start: 03-20-2022 Providing care according to standard [facility] Work Phone: Start: 03-20-2022 Provision of activity privileges [facility] Work Phone: Start: 03-20-2022 Referral to gastroenterology service [facility] Work Phone: Start: 03-20-2022 Referral to service [facility] Work Phone: Start: 03-20-2022 [facility] Work Phone: Start: 03-20-2022 Verification routine [facility] Work Phone: Start: 03-20-2022 Admission procedure [facility] Work Phone: Start: 03-20-2022 [facility] Work Phone: Start: 03-20-2022 Patient referral to dietitian [facility] Work Phone: Bacteria identified in Urine by Culture Urine Culture [facility] Work Phone: Cardiac event recording [facility] DXA Bone [Mass/Area] Bone density [facility] Patient Education ED Head Injury (Adult) [facility] Work Phone: Patient referral [facility] Work Phone: [facility] Work Phone: Immunizations Immunization Date Immunization Notes Care Provider Edgardo amaral 09-15-2021 influenza, injectabl e, quadrivalent, preservative free Dr. Candelario Santana MD Work Phone: [facility] 05-27-2020 influenza, injectabl e, quadrivalent, preservative free Dr. Candelario Santana MD Work Phone: [facility] 05-05-2017 influenza, injectabl e, quadrivalent, preservative free Dr. Candelario Santana MD Work Phone: [facility] 04-29-2016 influenza, injectabl e, quadrivalent, preservative free Dr. Candelario Santana MD Work Phone: [facility] 06-23-2012 influenza, seasonal, injectable, preservative free Dr. Candelario Santana MD Work Phone: [facility] Payers Date Payer Category Payer Medicare [id number] 2024 Self-pay [id number] Private Health Insurance Unknown [id number] 2.16.8 40.1.527964.3.579.2.462 Unknown [id number] 2.16.8 40.1.939822.3.579.2.462 Unknown [id number] 2.16.8 40.1.772469.3.579.2.462 Unknown [id number] 2.16.8 40.1.337674.3.579.2.462 Unknown [id number] 2.16.8 40.1.115982.3.579.2.462 Unknown [id number] 2.16.8 40.1.120291.3.579.2.462 Unknown [id number] 2.16.8 40.1.699286.3.579.2.462 Unknown [id number] 2.16.8 40.1.072718.3.579.2.462 Unknown [id number] 2.16.8 40.1.686541.3.579.2.462 Unknown [id number] 2.16.8 40.1.678654.3.579.2.462 Unknown [id number] 2.16.8 40.1.384312.3.579.2.462 Unknown [id number] 2.16.8 40.1.480377.3.579.2.462 Unknown [id number] 2.16.8 40.1.809812.3.579.2.462 Unknown [id number] 2.16.8 40.1.165700.3.579.2.462 Unknown [id number] 2.16.8 40.1.954212.3.579.2.462 Unknown [id number] 2.16.8 40.1.888662.3.579.2.462 Unknown [id number] 2.16.8 40.1.744384.3.579.2.462 Unknown [id number] 2.16.8 40.1.292304.3.579.2.462 Unknown [id number] 2.16.8 40.1.565648.3.579.2.462 Unknown [id number] 2.16.8 40.1.638578.3.579.2.462 Unknown [id number] 2.16.8 40.1.083182.3.579.2.462 Unknown [id number] 2.16.8 40.1.382878.3.579.2.462 Unknown [id number] 2.16.8 40.1.567910.3.579.2.462 Unknown [id number] 2.16.8 40.1.934231.3.579.2.462 Unknown [id number] 2.16.8 40.1.454496.3.579.2.462 Unknown [id number] 2.16.8 40.1.679712.3.579.2.462 Unknown [id number] 2.16.8 40.1.624263.3.579.2.462 Unknown [id number] 2.16.8 40.1.988741.3.579.2.462 Unknown [id number] 2.16.8 40.1.117685.3.579.2.462 Unknown [id number] 2.16.8 40.1.541713.3.579.2.462 Unknown [id number] 2.16.8 40.1.031287.3.579.2.462 Unknown [id number] 2.16.8 40.1.827641.3.579.2.462 Unknown [id number] 2.16.8 40.1.991825.3.579.2.462 Unknown [id number] 2.16.8 40.1.120206.3.579.2.462 Unknown [id number] 2.16.8 40.1.748934.3.579.2.462 Unknown [id number] 2.16.8 40.1.419678.3.579.2.462 Unknown [id number] 2.16.8 40.1.590237.3.579.2.462 Unknown [id number] 2.16.8 40.1.994250.3.579.2.462 Social History Date Type Detail Facility Start: 10-22-2020 End: 12-09-2022 Tobacco smoking status MOIS Unknown if ever smoked [facility] Start: 02-13-2017 None [facility] Start: 10-22-2020 Non-smoker [facility] Start: 1945 Sex Assigned At Female [facility] Start: 12-09-2022 End: 03-18-2025 Tobacco smoking status NHIS Never smoked tobacco (finding) [facility] NEGATED: Highlighted row [facility] Medical Equipment Procedure Code Equipment Code Equipment Origin al Text Equipment Identifier Dates ORIF, hip, using Gamma nail ([id number]) Orthopaedic bone screw, non-bioabsorbable, sterile ()[id number] FDA Start: 02-16-2025 ORIF, hip, using Gamma nail ([id number]) Orthopaedic bone screw, non-bioabsorbable, sterile ()[id number] 1D4 FDA Start: 02-16-2025 ORIF, hip, using Gamma nail Femur intramedullary nail ()[id number] FDA Start: 02-16-2025 ORIF, hip, using Gamma nail Orthopaedic bone screw (non-sliding) ()[id number] 1C8 FDA Start: 02-16-2025 ERCP (endoscopic retrograde [...] Activity Abili ty With Assist of 2 [facility] Work Phone: 03-09-2025 Functional status Ambulates;Bathroom Priv ilege [facility] Work Phone: 02-21-2025 Functional status Ambulates;Bedr est;Bathroom Privilege [facility] Work Phone: 03-21-2022 Functional status Ambulates [facility] Work Phone: Mental Status Date Assessment Result Facility 03-09-2025 Cognitive function Voice/Name [facility] Work Phone: 02-21-2025 Cognitive function Voice/Name [facility] Work Phone: 11-24-2022 Cognitive function Voice/Name [facility] Work Phone: 11-24-2022 Cognitive function Patient Orien tation Person;Place;Time [facility] Work Phone: 03-21-2022 Cognitive function Appropriate;Cooperativ e [facility] Work Phone: 03-20-2022 Cognitive function Awake;Alert;A ppropriate;Follo ws Commands [facility] Work Phone: Clinical Notes 11-24-2022 to 03-18-2025 Note Date & Type Note Facility 03-18-2025 Discharge summary Note Date/Time March 18, 2025 11:39am [facility] Medical Records Department [address] [place] [address] Emergency Department Summary 03/18/25 MR#: [id number] Acct: [id number] Name: SHASHI OSWALD Rep #:[id number] : 1945 79 From: Cj Ordonez MD [...] is a 79-year-old woman. She presents from [facility]. She has history of Parkinson [...] similar symptoms: Yes Recent Illness/Hospitalization: No PFSH [facility] Medical History Cognitive dysfunction History of hemorrhoids [...] bisacodyl 10 mg rectal suppository 10 mg AZ X1 PRN Con stipation #1 ea 03/08/25 [...] oriented x3 and CN's II-XII intact bilaterally [place] Coma Scale: document GCS findings Spontaneous Obeys [...] IMPRESSION: No acute intracranial abnormalities. Reading Location: [facility] C-minus of the head reveals no evidence of fracture, subdural hematoma, epiduralhematoma, subarachnoid hemorrhage or traumatic contusion. There is no fluid noted in the sinuses per awaiting formal read by radiologist, 1103. The CT report was reviewed at 1137. Plan is to discharge back to [facility]. Discharge Plan Triage Chief Complaint: Fall ED Provider: Cj Ordonez Dx/Rx/DC Orders Clinical Impression: CHI (closed head injury), Debility, Anticoagulant long-term use, Injury due to fall, [place] coma scale score 13-15, at arrival to [...] 0RF bisacodyl 10 mg Suppository 10 mg AZ X1 PRN (Reason: Constipation) Qty: 1 0RF [...] next 3 doses of Eliquis Print Language: Hungarian Disposition Disposition: Home, Self Care What to do if you have Problems For any increased pain, shortness of breath, bleeding, nausea or vomiting, chestpain, or any unexpected problems, contact your Primary Care Provider. Call [facility] ([phone]) or report to the closest Emergency Room. Call 911 if necessary. 03/18/25 1139 <Electronically signed by Cj Ordonez MD> Cosigner Signature (if applicable): CC: Dr. Candelario Santana MD ~ Signed [facility] Work Phone: 1(492) 827-100607-27-2025 Discharge summary [facility] Medical Records Department [address] [place] [address] Emergency Department Summary 03/18/25 MR#: [id number] Acct: [id number] Name: SHASHI OSWALD Rep #:[id number] : 1945 79 From: Cj Ordonez MD [...] is a 79-year-old woman. She presents from [facility]. She has history of Parkinson [...] bisacodyl 10 mg rectal suppository 10 mg AZ X1 PRN Con stipation #1 ea 03/08/25 [...] IMPRESSION: No acute intracranial abnormalities. Reading Location: [facility] C-minus of the head reveals no evidence of fracture, subdural hematoma, epiduralhematoma, subarachnoid hemorrhage or traumatic contusion. There is no fluid noted in the sinuses per awaiting formal read by radiologist, 1103. The CT report was reviewed at 1137. Plan is to discharge back to [facility]. Discharge Plan Triage Chief Complaint: Fall ED Provider: Cj Ordonez Dx/Rx/DC Orders Clinical Impression: CHI (closed head injury), Debility, Anticoagulant long-term use, Injury due to fall, [place] coma scale score 13-15, at arrival to [...] 0RF bisacodyl 10 mg Suppository 10 mg AZ X1 PRN (Reason: Constipation) Qty: 1 0RF [...] next 3 doses of Eliquis Print Language: Hungarian Disposition Disposition: Home, Self Care What to do if you have Problems For any increased pain, shortness of breath, bleeding, nausea or vomiting, chestpain, or any unexpected problems, contact your Primary Care Provider. Call [facility] ([phone]) or report tothe closest Emergency Room. Call 911 if necessary. 03/18/25 1138 Cosigner Signature (if applicable): CC: Dr. Candelario Santana MD ~ Signed [facility]07-27-2025 Radiology Diagnostic study note [facility] Imaging Services [address] [place], [place] [address] Brain/Head without Contrast MR#: [id number] Acct: [id number] Name: SHASHI OSWALD Rep #: [id number] : 1945 F 79 From: Cody Kim MD PCP: Dr. Candelario Santana MD Status: REG E R Study:Brain/Head without Contrast Date of Exa m: 03/18/25 Exam# [id number] Ordering Dr: Wiliam Ordonez MD PROCEDURE: BRAIN/HEAD [...] IMPRESSION: No acute intracranial abnormalities. Reading Location: [facility] CC: Dr. Candelario Santana MD; Dr. Cj Ordonez MD ~ Candy Dipper Hand: Signed [facility]07-18-2025 Discharge summary Author Katie Bah [facility] Note Date/Time March 09, 2025 11:0 3am [facility] Medical Records Department [address] [place] [address] Discharge Summary 03/08/25 1657 MR#: [id number] Acct: [id number] Name: SHASHI OSWALD Rep #:[id number] : 1945 79 From: Katie Bah PCP: Dr. Candelario Santana MD Status:ADM I N Location: [place] [address] Providers Date of Admission: 02/21/25 Date of [...] status: with other specified complication Diabetes mellitus nursing home insulin use: without nursing home use Qualified Code(s): E11.69 - Type 2 [...] Recommend she follow up with neurology at [facility] from rehab. (10) Cognitive dysfunction: Status: Chronic [...] week. Will recommend an event monitor at [facility]. (16) Orthostatic hypotension: Status: Chronic Code(s): I95.1 [...] from in rehab. Plan 1. DC to [facility] on 03/09 for additional therapy - [...] bisacodyl 10 mg rectal suppository 10 mg AZ X1 PRN Constipation #1 ea 03/08/25 calcium [...] who presented to the emergency department at [facility] on 02/15/2025 complaining of left hip [...] to the acute inpt rehab unit at [facility] on 02/21/25 for 3 hours of [...] put in for an event monitor at [facility]. We discovered that there is a big [...] transfer. Shashi was discharged on 03/09/[address] [facility] for additional therapy. A Follow-up appointment has been made with Dr. Chacon from orthopedics and she will also need to follow up with PCP (Dr. Santana) following [facility]. We have tried to get an appt [...] 0RF bisacodyl 10 mg Suppository 10 mg AZ X1 PRN (Reason: Constipation) Qty: 1 0RF [...] Recorder Preventi (Urgent) Timeframe: 3 Days Location: [facility] Ordered By: Dr. Katie Bah Referrals / Follow Up: Matt Chacon MD [Med Staff - Active Staff] - 03/22/25 3:30 pm Shon Lozada MD [Non-Staff -Ordering Privileges] - Disposition Disposition (needs filled in before D/C Order can be placed): Longterm Facility Charges/Coding Visit Charges Inpatient E&M: 21506 Disch Hosp >30min 03/09/25 1103 <Electronically signed by Katie Bah DO> Cosigner Signature (if applicable): CC: Dr. Matt Chacon MD; Dr. Katie Bah DO; Dr. Shon Lozada MD; Dr. Candelario Santana MD~ Signed [facility] Work Phone: 1(474) 447-279807-18-2025 Discharge summary [facility] Medical Records Department [address] [place] [address] Discharge Summary [id number] MR#: [id number] Acct: [id number] Name: SHASHI OSWALD Rep #:[id number] : 1945 79 From: Katie Bah DO PCP: Dr. 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 (10) Cognitive dysfunction: Status: Chronic [...] week. Will recommend an event monitor at [facility]. (16) Orthostatic hypotension: Status: Chronic Code(s): I95.1 [...] from in rehab. Plan 1. DC to [facility] on 03/09 for additional therapy - may need LT placement 2. Event monitor at [facility]. 3. DEXA in the near future. 4. [...] bisacodyl 10 mg rectal suppository 10 mg AZ X1 PRN Constipation #1 ea 03/08/25 calcium [...] who presented to the emergency department at [facility] on 02/15/2025 complaining of left hip [...] to the acute inpt rehab unit at [facility] on 02/21/25 for 3 hours of therapydaily to restore function/independence at or near her level prior to the fall. Shashi has made steady progress while on rehab. Recovery is complicated by poor cognitive function. BS's were elevated at admission to rehab. She was started on GLucophage and the BS's are well controlled on GLucophage 750 mg Q AMat [facility]. No BS's > 180 and no hypoglycemia. [...] put in for an event monitor at [facility]. We discovered that there is a big [...] transfer. Shashi was discharged on 03/09/[address] [facility] for additional therapy. A Follow-up appointment has been made with Dr. Chacon from orthopedics and she will also need to follow up with PCP (Dr. Santana) following [facility]. We have tried to get an appt [...] does not elevate her legs.Continue with CAMILA laba. Venous ultrasound of the left lower extremity [...] 0RF bisacodyl 10 mg Suppository 10 mg AZ X1 PRN (Reason: Constipation) Qty: 1 0RF [...] Recorder Preventi (Urgent) Timeframe: 3 Days Location: [facility] Ordered By: Dr. Katie Bah Referrals / Follow Up: Matt Chacon MD [Med Staff - Active Staff] - 03/22/25 3:30 pm Shon Lozada MD [Non-Staff -Ordering Privileges] - Disposition Disposition (needs filled in before D/C Order can be placed): Longterm Facility Charges/Coding Visit Charges Inpatient E&M: 43684 Disch Hosp >30min 03/09/25 1103 Cosigner Signature (if applicable): CC: Dr. Matt Chacon MD; Dr. Katie Bah DO; Dr. Shon Lozada MD; Dr. Candelario Santana MD~ Signed [facility]07-17-2025 Discharge summary Author Katie [facility] Note Date/Time March 08, 2025 4:57 pm [facility] Medical Records Department [address] [place] [address] Transfer to [facility] MR#: [id number] Acct: [id number] Name: SHASHI OSWALD Rep #:[id number] : 1945 79 From: Katie Bah DO PCP: Dr. Candelario Santana MD Status:ADM I N Certification of patient admission REQUIRED AT TIME OF ADMISSION. I CERTIFY THAT POST-HOSPITAL ECF SERVICES ARE REQUIRED TO BE GIVEN ON AN IN-PATIENT BASIS BECAUSE OF THE ABOVE NAMED PATIENT'S NEED FOR RESIDENTIAL CARE ON A CONTINUING BASIS FOR THE CONDITION(S) FOR WHICH HE/SHE WAS RECEIVING IN-PATIENT HOSPITAL SERVICES PRIOR TO HIS/HER TRANSFER TO THE [facility]. 03/08/25 1657<Electronically signed by Katie Bah DO> [...] Recommend she follow up with neurology at [facility] from [facility]. Comment: Diagnosed by Dr. Santana [...] week. Will recommend an event monitor at [facility]. (16) Orthostatic hypotension: Status: Chronic Code(s): I95.1 [...] an outpatient DEXA Plan 1. DC to [facility] on 03/09 for additional therapy - [...] 0RF bisacodyl 10 mg Suppository 10 mg AZ X1 PRN (Reason: Constipation) Qty: 1 0RF [...] Recorder Preventi (Urgent) Timeframe: 3 Days Location: [facility] Ordered By: Dr. Katie Bah Referrals / Follow Up: Matt Chacon MD [Med Staff - Active Staff] - 03/22/25 3:30 pm Shon Lozada MD [Non-Staff -Ordering Privileges] - Disposition Disposition (needs filled in before D/C Order can be placed): Longterm Facility (2) Intertrochanteric fracture of left femur [...] status: with other specified complication Diabetes mellitus nursing home insulin use: without nursing home use Qualified Code(s): E11.69 - Type 2 [...] Lozada MD; Dr. Candelario Santana MD ~ [facility] Work Phone: 1(794) 419-486107-17-2025 Discharge summary [facility] Medical Records Department [address] [place] [address] Transfer to [facility] MR#: [id number] Acct: [id number] Name: SHASHI OSWALD Rep #:[id number] : 1945 79 From: Katie Bah DO PCP: Dr. Candelario Santana MD Status:ADM I N Certification of patient admission REQUIRED AT TIME OF ADMISSION. I CERTIFY THAT POST-HOSPITAL [facility] SERVICES ARE REQUIRED TO BE GIVEN ON AN IN-PATIENT BASIS BECAUSE OF THE ABOVE NAMED PATIENT'S NEED FOR RESIDENTIAL CARE ON A CONTINUING BASIS FOR THE CONDITION(S) FOR WHICH HE/SHE WAS RECEIVING IN-PATIENT HOSPITAL SERVICES PRIOR TO HIS/HER TRANSFER TO THE [facility]. 03/08/251656 Diet Diet Order/Speech Therapy: INPATIENT Hospital [...] Recommend she follow up with neurology at [facility] from [facility]. Comment: Diagnosed by Dr. Santana [...] week. Will recommend an event monitor at [facility]. (16) Orthostatic hypotension: Status: Chronic Code(s): I95.1 [...] an outpatient DEXA Plan 1. DC to [facility] on 03/09 for additional therapy - [...] 0RF bisacodyl 10 mg Suppository 10 mg [place] X1 PRN (Reason: Constipation) Qty: 1 0RF [...] Recorder Preventi (Urgent) Timeframe: 3 Days Location: [facility] Ordered By: Dr. Katie Bah Referrals / Follow Up: Matt Chacon MD [Med Staff - Active Staff] - 03/22/25 3:30 pm Shon Lozada MD [Non-Staff -Ordering Privileges] - Disposition Disposition (needs filled in before D/C Order can be placed): Longterm Facility (2) Intertrochanteric fracture of left femur [...] status: with other specified complication Diabetes mellitus nursing home insulin use: without nursing home use Qualified Code(s): E11.69 - Type 2 [...] Lozada MD; Dr. Candelario Santana MD ~ [facility]07-17-2025 [facility]07-15-2025 Progress note Author Katie Bah [facility] Note Date/Time March 06, 2025 4:11 pm [facility] Medical Records Department [address] [place] [address] Progress Note 03/06/25 1150 MR#: [id number] Acct: [id number] Name: SHASHI OSWALD Rep #:[id number] : 1945 79 From: Katie Bah PCP: Dr. Candelario Santana MD Status:ADM I N Location: [place] [address] Subjective Subjective Afebrile VSS -mild systolic hypertension. [...] status: with other specified complication Diabetes mellitus nursing home insulin use: without nursing home use Qualified Code(s): E11.69 - Type 2 [...] therapy 2. Plan discharge for Wednesday to [facility] 3. Hold Procardia if the systolic is less than 110 4. Continue metoprolol 25 mg twice daily in light of paroxysmal atrial fibrillation while on rehab. Plan event monitor at discharge. Encouraged her to increase her fluid intake today. Charges/Coding Visit Charges Inpatient E&M: 83678 Subs Hosp L1 03/06/25 1611 <Electronically signed by Katie Bah DO> Katie Bah DO Cosigner Signature (if applicable): CC: ~ Signed [facility] Work Phone: 1(410) 213-445807-15-2025 Progress note [facility] Medical Records Department [address] [place] [address] Progress Note 03/06/25 1150 MR#: [id number] Acct: [id number] Name: SHASHI OSWALD Rep #:[id number] : 1945 79 From: Katie Bah DO PCP: Dr. Candelario Santana MD Status:ADM I N Location: [place] [address] Subjective Subjective Afebrile VSS -mild systolic hypertension. [...] status: with other specified complication Diabetes mellitus terminal computer operator insulin use: without terminal computer operator use Qualified Code(s): E11.69 - Type 2 [...] therapy 2. Plan discharge for Wednesday to [facility] 3. Hold Procardia if the systolic is less than 110 4. Continue metoprolol 25 mg twice daily in light of paroxysmal atrial fibrillation while on rehab.Plan event monitor at discharge. Encouraged her to increase her fluid intake today. Charges/Coding Visit Charges Inpatient E&M: 80992 [facility] Hosp L1 03/06/25 1611 Katie Bah DO [facility] Signature (if applicable): CC: ~ Signed [facility]07-14-2025 Progress note Author Katie Bah [facility] Note Date/Time March 05, 2025 2:59 pm [facility] Medical Records Department [address] [place] [address] Progress Note 03/05/25 1138 MR#: [id number] Acct: [id number] Name: SHASHI OSWALD Rep #:[id number] : 1945 79 From: Katie Bah DO PCP: Dr. Candelario Santana MD Status:ADM I N Location: [place] [address] Subjective Subjective Shashi was seen on team [...] status: with other specified complication Diabetes mellitus nursing home insulin use: without nursing home use Qualified Code(s): E11.69 - Type 2 [...] a holtor monitor or event monitor [place]. PLAN: Plan 1. Continue therapy 2. Increase the tramadol to 3 times daily at 7 AM, 2 PM and 9 PM. Continue acetaminophen and the arthritis compounded cream to the knee. 3. Continue to monitor the blood pressure. It seems to be improving with the addition of nicardipine to her drug regimen. 4. Plan is for [facility] at discharge as Ash does not feel he can adequately care for her at home at this point. The patient agrees with this andis willing to go to a [facility] facility. 5. Will need a TSH and T4 in 6 weeks. 6. Recommend follow-up with neurology for cognitive impairment. Charges/Coding Visit Charges Inpatient E&M: 12959 Subs Hosp L2 03/05/25 7664 <Electronically signed by Katie Bah DO> Katie Bah DO Cosigner Signature (if applicable): CC: ~ Signed [facility] Work Phone: 1(510) 647-375207-14-2025 Progress note Author Jo Vizcarra [facility] Note Date/Time March 05, 2025 1:25 pm [facility] Medical Records Department [address] [place] [address] Progress Note - Orthopedic 03/05/25 1318 MR#: [id number] Acct: [id number] Name: SHASHI OSWALD Rep #:[id number] : 1945 79 From: Jo HADLEY PCP: Dr. Candelario Santana MD Status:ADM I N Location: [place] [address] Subjective Subjective Postop 2 weeks status post left hip long gamma nail for IT plus subtrochanteric fracture. Patient was seen today in the rehab unit. Patient was working with physical therapy upon entry. Patient continues to do well with very minimal pain. Therapy reports that she is walking approximately 20 feet at a time. Parshall were removed last week. Patient says that [...] Cosigner Signature (if applicable): CC: ~ Signed [facility] Work Phone: 1(265) 350-117707-14-2025 Progress note [facility] Medical Records Department [address] [place] [address] Progress Note 03/05/25 1138 MR#: [id number] Acct: [id number] Name: SHASHI OSWALD Rep #:[id number] : 1945 79 From: Katie Bah DO PCP: Dr. Candelario Santana MD Status:ADM I N Location: [place] [address] Subjective Subjective Shashi was seen on team [...] status: with other specified complication Diabetes mellitus terminal computer operator insulin use: without terminal computer operator use Qualified Code(s): E11.69 - Type 2 [...] needa holtor monitor or event monitor at [place]. PLAN: Plan 1. Continue therapy 2. Increase the tramadol to 3 times daily at 7 AM, 2 PM and 9 PM. Continue acetaminophen and the arthritis compounded cream to the knee. 3. Continue to monitor the blood pressure. It seems to be improving with the addition of nicardipine to her drug regimen. 4. Plan is for [facility] at discharge as Ash does not feel he can adequately care for her athome at this point. The patient agrees with this andis willing to go to a [facility] facility. 5. Will need a TSH and T4 in 6 weeks. 6. Recommend follow-up with neurology for cognitive impairment. Charges/Coding Visit Charges Inpatient E&M: 58211 [facility] Hosp L2 03/05/25 5344 Katie [facility] DO [facility] Signature (if applicable): CC: ~ Signed [facility]07-14-2025 Progress note [facility] Medical Records Department [address] [place] [address] Progress Note - Orthopedic 03/05/25 1318 MR#: [id number] Acct: [id number] Name: SHASHI OSWALD Rep #:[id number] : 1945 79 From: Jo HADLEY PCP: Dr. Candelario Santana MD Status:ADM I N Location: [place] [address] Subjective Subjective Postop 2 weeks status post [...] Cosigner Signature (if applicable): CC: ~ Signed [facility]07-11-2025 Radiology Diagnostic study note [facility] Imaging Services [address] [place] [address] Femur Min 2 Views MR#: [id number] Acct: [id number] Name: SHASHI OSWALD Rep #: [id number] : 1945 From: Nicholas Hope MD PCP: Dr. Candelario Santana MD Status: ADM I N Study:Femur Min 2 Views Date of Exam: Exam# [id number] Ordering Dr: Ronal Chacon MD PROCEDURE: FEMUR MIN 2 VIEWS 03/02/2025 REASON FOR EXAM: STATUS POST LONG GAMMA NAIL TECHNIQUE: FEMUR MIN 2 VIEWS COMPARISON: None. FINDINGS: Left femoral internal fixation spanning a left proximal femoral fracture. No evidence of acute complication. RAD/Femur Min 2 Views IMPRESSION: Intact left femoral internal fixation. Reading Location: [id number] CC: Dr. Matt Chacon MD; Dr. Candelario Santana MD ~ Candy Dipper Hand: Signed [facility]07-11-2025 Radiology Diagnostic study note [facility] Imaging Services [address] [place] [address] Pelvis 1 or 2 Views MR#: [id number] Acct: [id number] Name: SHASHI OSWALD Rep #: [id number] : 1945 From: Nicholas Hope MD PCP: Dr. Candelario Santana MD Status: ADM I N Study:Pelvis 1 or 2 Views Date of Exam: 03/02/25 Exam# [id number] Ordering Dr: Ronal Chacon MD PROCEDURE: PELVIS [...] IMPRESSION: Left femoral internal fixation. Reading Location: [place] [address] CC: Dr. Matt Chacon MD; Dr. Candelario Santana MD ~ Candy Dipper Hand: Signed [facility]07-10-2025 Progress note Author Katie Bah [facility] Note Date/Time March 01, 2025 5:02 pm [facility] Medical Records Department [address] [place] [address] Progress Note 03/01/25 1033 MR#: [id number] Acct: [id number] Name: SHASHI OSWALD Rep #:[id number] : 1945 79 From: Katie Bah DO PCP: Dr. Candelario Santana MD Status:ADM I N Location: [place] [address] Subjective Subjective Afebrile. The blood pressure over [...] status: with other specified complication Diabetes mellitus nursing home insulin use: without terminal computer operator use Qualified Code(s): E11.69 - Type 2 [...] extremity today. Charges/Coding Visit Charges Inpatient E&M: 89708 Subs Hosp L1 03/01/25 1143 <Electronically signed [...] Signature (if applicable): Date cc: ~* Signed [facility] Work Phone: 1(611) 692-283707-10-2025 Progress note [facility] Medical Records Department [address] [place] [address] Progress Note 03/01/25 1033 MR#: [id number] Acct: [id number] Name: SHASHI OSWALD Rep #:[id number] : 1945 79 From: Katie Bah DO PCP: Dr. Candelario Santana MD Status:ADM I N Location: [place] [address] Subjective Subjective Afebrile. The blood pressure over [...] status: with other specified complication Diabetes mellitus terminal computer operator insulin use: without terminal computer operator use Qualified Code(s): E11.69 - Type 2 [...] extremity today. Charges/Coding Visit Charges Inpatient E&M: 95564 Subs Hosp 03/01/25 1143 Katie Bah DO Cosigner Signature (if applicable): CC: ~ Signed ADDENDUM by Dr. Katie Bah DO on 03/01/25 at 1702 Addendum Venous ultrasound of the left lower extremity shows deep veins to be patent and compressible segmentally. 03/01/25 1702 ti DO> Date _ Katie Bah DO Cosigner Signature (if applicable): Date cc: ~* Signed [facility]07-09-2025 Progress note Author Katie Bah [facility] Note Date/Time February 28, 2025 11:36 am [facility] Medical Records Department [address] [place] [place] [address] Progress Note 02/28/25911 MR#: [id number] Acct: [id number] Name: SHASHI OSWALD Rep #:[id number] : 1945 79 From: Katie Bah DO PCP: Dr. Candelario Santana MD Status:ADM I N Location: [place] [id number] Subjective Subjective Finished 5 days of Macrobid [...] status: with other specified complication Diabetes mellitus terminal computer operator insulin use: without terminal computer operator use Qualified Code(s): E11.69 - Type 2 [...] as OP. Charges/Coding Visit Charges Inpatient E&M: 47152 Subs Hosp L1 02/28/25 1136 <Electronically signed by Katie Bah DO> Katie Bah DO Cosigner Signature (if applicable): CC: ~ Signed [facility] Work Phone: 1(493) 588-635507-09-2025 Progress note [facility] Medical Records Department [address] [place] [address] Progress Note 02/28/25 09 MR#: [id number] Acct: [id number] Name: SHASHI OSWALD Rep #:[id number] : 1945 79 From: Katie Bah PCP: Dr. Candelario Santana MD Status:ADM I N Location: [place] [address] Subjective Subjective Finished 5 days of Macrobid [...] status: with other specified complication Diabetes mellitus terminal computer operator insulin use: without terminal computer operator use Qualified Code(s): E11.69 - Type 2 [...] as OP. Charges/Coding Visit Charges Inpatient E&M: 33742 Subs Hosp L1 02/28/25 1136 Katie Bah DO Cosigner Signature (if applicable): CC: ~ Signed [facility]07-07-2025 Progress note Author Katie Bah [facility] Note Date/Time February 26, 2025 3:37p m [facility] Medical Records Department [address] [place] [address] Progress Note 02/26/25 0857 MR#: [id number] Acct: [id number] Name: SHASHI OSWALD Rep #:[id number] : 1945 79 From: Katie Bah DO PCP: Dr. Candelario Santana MD Status:ADM I N Location: [place] [address] Subjective Subjective Shashi was seen on team [...] status: with other specified complication Diabetes mellitus nursing home insulin use: without terminal computer operator use Qualified Code(s): E11.69 - Type 2 [...] will also need an event monitor at [place]. PLAN: Plan 1. Continue therapy 2. Finish [...] She will need a event monitor at [place] from rehab. She has had PAF while on rehab. 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 Also will need a carotid US (can be done as an OP) for loud R carotid bruit.....vs radiation of MM Charges/Coding Visit Charges Inpatient E&M: 62014 Subs Hosp L2 02/26/25 1539 <Electronically signed by Katie Bah DO> Katie Bah DO Cosigner Signature (if applicable): CC: ~ Signed [facility] Work Phone: 1(962) 961-996707-07-2025 Progress note [facility] Medical Records Department [address] [place] [address] Progress Note 02/26/25 0857 MR#: [id number] Acct: [id number] Name: SHASHI OSWALD Rep #:[id number] : 1945 79 From: Katie Bah DO PCP: Dr. Candelario Santana MD Status:ADM I N Location: [place] [address] Subjective Subjective Shashi was seen on team [...] status: with other specified complication Diabetes mellitus nursing home insulin use: without nursing home use Qualified Code(s): E11.69 - Type 2 [...] will also need an event monitor at [place]. PLAN: Plan 1. Continue therapy 2. Finish [...] She will need a event monitor at [place] from [place]. She has had PAF while on rehab. 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 Also will need a carotid US (can be done as an OP) for loud R carotid bruit.....vs radiation of MM Charges/Coding Visit Charges Inpatient E&M: 21085 Subs Hosp L2 02/26/25 1537 Katie Bah DO Cosigner Signature (if applicable): CC: ~ Signed [facility]07-04-2025 Progress note Author Katie Bah [facility] Note Date/Time February 23, 2025 1:26p m [facility] Medical Records Department [address] [place] [address] Progress Note 02/23/25 1253 MR#: [id number] Acct: [id number] Name: SHASHI OSWALD Rep #:[id number] : 1945 79 From: Katie Bah DO PCP: Dr. Candelario Santana MD Status:ADM I N Location: [place] [address] Subjective Subjective Afebrile VSS -blood pressure since [...] Clarity Cloudy, Urine pH 6.5, Ur Specific [place] 1.010, Urine Protein 30 H, Urine Glucose [...] Diabetes mellitus, type 2: QUALIFIERS: Diabetes mellitus nursing home insulin use: without nursing home use Diabetes mellitus complication status: with other [...] Has not had a CT brain at [facility] in the past. TSH is high [...] is 98. Charges/Coding Visit Charges Inpatient E&M: 27092 Subs Hosp L1 02/23/25 1321 <Electronically signed [...] Signature (if applicable): Date cc: ~* Signed [facility] Work Phone: 1(568) 300-505907-04-2025 History and physical note Author Katie Bah [facility] Note Date/Time February 23, 2025 12:50 pm [facility] Medical Records Department [address] [place] [address] Post Admission Physician Danial 02/23/25 1242 MR#: [id number] Acct: [id number] Name: SHASHI OSWALD Rep #:[id number] : 1945 79 From: Katie DíazSimona Olvin PCP: Dr. Candelario Santana MD Status:ADM I N Location: [place] [address] Admission Information Primary Diagnosis:: Debility secondary to [...] Skin integrity and Medication Management Patient needs Facility Planner/ Case Management for: Discharge Planning, Arranging Home [...] Cosigner Signature (if applicable): CC: ~ Signed [facility] Work Phone: 1(330) 757-322307-04-2025 History and physical note Author Katie Bah [facility] Note Date/Time February 23, 2025 12:42 pm [facility] Medical Records Department [address] [place] [address] History & Physical Exam 02/22/25 0945 MR#: [id number] Acct: [id number] Name: SHASHI OSWALD Rep #:[id number] : 1945 79 From: Katie Bah DO PCP: Dr. Candelario Santana MD Status:ADM I N Location: [place] [address] HPI - General General Date of Admission: [...] who presented to the emergency department at [facility] on 02/15/2025 complaining of left hip [...] to the acute inpt rehab unit at [facility] on 02/21/25 for 3 hours of [...] this institution. Has not seen a neurologist. [facility] Medical History Hypothyroidism Diabetes [...] % (Auto) 65.0, Lymph % (Auto) 23.7, Armstrong% (Auto) 7.2, Eos % (Auto) 3.0, Baso [...] the AV. Charges/Coding Visit Charges Inpatient E&M: 80582 Init Hosp L2 02/23/25 1242 <Electronically signed by Katie Bah DO> Cosigner Signature (if applicable): CC: Dr. Matt Chacon MD; Dr. Katie Bah DO; Dr. Candelario Santana MD~ Signed [facility] Work Phone: 1(602) 592-801007-04-2025 Progress note [facility] Medical Records Department [address] [place] [address] Progress Note 02/23/25 1253 MR#: [id number] Acct: [id number] Name: SHASHI OSWALD Rep #:[id number] : 1945 79 From: Katie Bah DO PCP: Dr. Candelario Santana MD Status:ADM I N Location: [place] [address] Subjective Subjective Afebrile VSS -blood pressure since [...] Clarity Cloudy, Urine pH 6.5, Ur Specific [place] 1.010, Urine Protein 30 H, Urine Glucose [...] Diabetes mellitus, type 2: QUALIFIERS: Diabetes mellitus terminal computer operator insulin use: without nursing home use Diabetes mellitus complication status: with other [...] Has not had a CT brain at [facility] in the past. TSH is high [...] is 98. Charges/Coding Visit Charges Inpatient E&M: 77145 Subs Hosp L1 02/23/25 1321 Katie Bah [...] Signature (if applicable): Date cc: ~* Signed [facility]07-04-2025 History and physical note [facility] Medical Records Department [address] [place] [address] Post Admission Physician Danial 02/23/25 1242 MR#: [id number] Acct: [id number] Name: SHASHI OSWALD Rep #:[id number] : 1945 79 From: Katie Bah DO PCP: Dr. Candelario Santana MD Status:ADM I N Location: [place] [address] Admission Information Primary Diagnosis:: Debility secondary to [...] Skin integrity and Medication Management Patient needs Facility Planner/ Case Management for: Discharge Planning, Arranging Home [...] Cosigner Signature (if applicable): CC: ~ Signed [facility]07-04-2025 History and physical note [facility] Medical Records Department [address] [place] [address] History & Physical Exam 02/22/25 0945 MR#: [id number] Acct: [id number] Name: SHASHI OSWALD Rep #:[id number] : 1945 79 From: Katie Bah PCP: Dr. Candelario Santana MD Status:ADM I N Location: [address] - General General Date of Admission: 02/21/25 Date of Service: 02/22/25 Chief Complaint: Debility secondary to left hip fracture and patient with Parkinson's disease [facility] Narrative SHASHI OSWALD, is a 79 YO F with a past medical history of Parkinson's disease?, diabetes mellitus type 2, hypertension, hypothyroidism (status post thyroidectomy), restless leg syndrome, history of choledocholithiasis (has had an ERCP and placement of temporary biliary stents in November [address] Tran), internal hemorrhoids, iron deficiency anemia and memory problems who presented to the emergency department at [facility] on 02/15/2025 complaining of left hip [...] to the acute inpt rehab unit at [facility] on 02/21/25 for 3 hours of [...] at this institution. Has not rajendra neurologist. [facility] Medical History Hypothyroidism Diabetes [...] Neut% (Auto) 65.0, Lymph % (Auto) 23.7, Armstrong% (Auto) 7.2, Eos % (Auto) 3.0, Baso [...] the AV. Charges/Coding Visit Charges Inpatient E&M: 29908 Init Hosp L2 02/23/25 1242 Cosigner Signature (if applicable): CC: Dr. Matt Chacon MD; Dr. Katie Bah DO; Dr. Candelario Santana MD~ Signed [facility]07-03-2025 [facility]07-02-2025 Hospital Discharge instructionsAdditional Instructions 1. WBAT LLE 2. Eliquis 2.5 mg BID x 30 days then stop 3. Dressing changes per ortho 4. Ortho F/U in 2 weeks Date of Discharge: 02/21/25[facility] Work Phone: 1(232) 606-660507-02-2025 Consult note [facility] Medical Records Department [address] [place] [address] Anesthesia Postop Eval II 02/19/25 0958 MR#: [id number] Acct: [id number] Name: SHASHI OSWALD Rep #:[id number] : 1945 79 From: Bi Zaman MD PCP: Dr. Candelario Santana MD Status:ADM I N Y Race: C Location: [place] [address] Anesthesia Postop Eval I Sum Postop Eval Completion status Anesthesia document: Postop Eval 1 completed: Yes Anesthesia Postop Eval I Summary Anesthesia Postop Eval I Summary: Anesthesia Postop Eval I: Assessment Summary Airway patent Yes 02/16/25 12:50 EMBLEM FUSER TENDER.SKOBY Spontaneous unlabored Yes 02/16/25 12:50 EMBLEM FUSER TENDER.SKOBY respirations Mental status Awake,Calm 02/16/25 12:50 EMBLEM FUSER TENDER.SKOBY nausea No 02/16/25 12:50 EMBLEM FUSER TENDER.SKOBY Vomiting No 02/16/25 12:50 EMBLEM FUSER TENDER.SKOBY Anesthesia Postop Eval I: Fluid Summary Crystalloid volume administer 2,400 02/16/25 12:50 EMBLEM FUSER TENDER.SKOBY (ml) Colloids volume administered ( ml) Blood [...] ALFARO Cosigner Signature: Date CC: ~ Signed [facility]07-02-2025 Consult note [facility] Medical Records Department [address] [place] [address] Counseling Note - Pharmacy 02/21/2537 MR#: [id number] Acct: [id number] Name: SHASHI OSWALD Rep #:[id number] : 1945 79 From: Ena Viera PCP: Dr. Candelario Santana MD Status:ADM I N Y Location: [place] [address] [place]acy [place] [facility] Recon[place] Pharmacy Service has performed discharge [...] Signature (if applicable): Date CC: ~ Signed [facility]07-02-2025 Discharge summary Author Gia Owusu [facility] Note Date/Time February 21, 2025 11:18 am [facility] Medical Records Department [address] [place] [address] Discharge Summary 02/21/25 0828 MR#: [id number] Acct: [id number] Name: SHASHI OSWALD Rep #:[id number] : 1945 79 From: Gia Owuus DO PCP: Dr. Candelario Santana MD Status:ADM I N Location: MS3 [id number] Providers Date of Admission: 02/15/25 Date of [...] female who presented to the emergency department [facility] on 02/15/2025 with a chief complaint [...] Rehab Unit/Facility Charges/Coding Visit Charges Inpatient E&M: 07836 Disch Hosp >30min 02/21/25 1118 <Electronically signed by Gia Owusu DO> Cosigner Signature (if applicable): CC: Dr. Matt Chacon MD; Dr. Gia Owusu DO; Dr. Candelario Santana MD~ Signed [facility] Work Phone: 1(528) 382-449407-02-2025 Consult note Author Enarodney Viera [facility] Note Date/Time February 21, 2025 1:55p m [facility] Medical Records Department [address] [place] [address] Counseling Note - Pharmacy 02/21/25 0937 MR#: [id number] Acct: [id number] Name: SHASHI OSWALD Rep #:[id number] : 1945 79 From: Ena Viera PCP: Dr. Candelario Santana MD Status:ADM I N Y Location: [place] [address] [place]acy [place] Recon[place] Pharmacy Service has performed discharge [...] Signature (if applicable): Date CC: ~ Signed [facility] Work Phone: 1(399) 618-284307-02-2025 Discharge summary [facility] Medical Records Department [address] [place] [address] Discharge Summary 02/21/25827 MR#: [id number] Acct: [id number] Name: SHASHI OSWALD Rep #:[id number] : 1945 79 From: Gia Owusu DO PCP: Dr. Candelario Santana MD Status:ADM I N [place] [facility] [place]U248-2 Providers Date of Admission: 02/15/25 Date of [...] female who presented to the emergency department [facility] on 02/15/2025 with a chief complaint [...] Rehab Unit/Facility Charges/Coding Visit Charges Inpatient E&M: 46965 Disch Hosp >30min 02/21/25 1118 Cosigner Signature (if applicable): CC: Dr. Matt Chacon MD; Dr. Gia Owusu DO; Dr. Candelario Santana MD~ Signed [facility]07[facility]02[facility] Progress note Author Gia Owusu [facility] Note Date/Time February 20, 2025 5:16p m [facility] Medical Records Department [address] [place] [address] Progress Note - Hospitalist 02/20/25 1713 MR#: [id number] Acct: [id number] Name: SHASHI OSWALD Rep #:[id number] : 1945 79 From: Gia Owusu DO PCP: Dr. Candelario Santana MD Status:ADM I N Location: MS3 SZ630-3 Reason for Visit Reason for Visit: L [...] - Has been accepted at rehab - Huag-lb-jcqi done this evening and patient has been [...] ready for discharge from a medical standpoint. Haba-mr-oswo done today with insurance company. She has been approved for rehab level of care at discharge. Per discussion with case management we will plan for discharge tomorrow to rehab. Charges/Coding Visit Charges Inpatient E&M: 34288 Subs Hosp L1 02/20/25 1716 <Electronically signed by Gia Owusu DO> Cosigner Signature (if applicable): CC: ~ Signed [facility] Work Phone: 1(196) 163-383507-01-2025 Progress note [facility] Medical Records Department [address] [place] [address] Progress Note - Hospitalist 02/20/25 1713 MR#: [id number] Acct: [id number] Name: HSASHI OSWALD Rep #:[id number] : 1945 79 From: Gia Owusu DO PCP: Dr. Candelario Santana MD Status:ADM I N Location: WI3 LW666-3 Reason for Visit Reason for Visit: L [...] - Has been accepted at rehab - Jroq-mt-ygly done this evening and patient has been [...] ready for discharge from a medical standpoint. Msqt-ld-tguk done today with insurance company. She has been approved for rehab level of care at discharge. Per discussion with case management we will plan for discharge tomorrow to rehab. Charges/Coding Visit Charges Inpatient E&M: 07007 Subs Hosp L1 02/20/25 1716 Cosigner Signature (if applicable): CC: ~ Signed [facility]06-30-2025 Progress note Author Gia Owusu [facility] Note Date/Time February 19, 2025 4:12 pm [facility] Medical Records Department [address] [place] [address] Progress Note - Hospitalist 02/19/25 1607 MR#: [id number] Acct: [id number] Name: SHASHI OSWALD Rep #:[id number] : 1945 79 From: Gia Owusu DO PCP: Dr. Candelario Santana MD Status:ADM I N Location: MS3 XU889-4 Reason for Visit Reason for Visit: Left [...] for admission. Charges/Coding Visit Charges Inpatient E&M: 30483 Subs Hosp L1 02/19/25 1612 <Electronically signed by Gia Owusu DO> Cosigner Signature (if applicable): CC: ~ Signed [facility] Work Phone: 1(294) 313-513906-30-2025 Progress note [facility] Medical Records Department [address] [place] [address] Progress Note - Hospitalist 02/19/25 1607 MR#: [id number] Acct: [id number] Name: SHASHI OSWALD Rep #:[id number] : 1945 79 From: Gia Owusu DO PCP: Dr. Candelario Santana MD Status:ADM I N Location: MS3 GI240-8 Reason for Visit Reason for Visit: Left [...] for admission. Charges/Coding Visit Charges Inpatient E&M: 87549 Subs Hosp L1 02/19/25 1612 Cosigner Signature (if applicable): CC: ~ Signed [facility]06-30-2025 Progress note Author Matt Chacon [facility] Note Date/Time February 19, 2025 1:27 pm [facility] Medical Records Department [address] [place] [address] Progress Note - Orthopedic 02/19/25 1317 MR#: [id number] Acct: [id number] Name: SHASHI OSWALD Rep #:[id number] : 1945 79 From: Matt Chacon MD PCP: Dr. Candelario Santana MD Status:ADM I N [facility] Documented by User: LEONIE Delaney 02/19/25 13:22 [...] Cosigner Signature (if applicable): CC: ~ Signed [facility] Work Phone: 1(187) 544-624306-30-2025 Progress note [facility] Medical Records Department [address] [place] [address] Progress Note - Orthopedic 02/19/25 1317 MR#: [id number] Acct: [id number] Name: SHASHI OSWALD Rep #:[id number] : 1945 79 From: Matt Chacon MD PCP: Dr. Candelario Santana MD Status:ADM I N Location: WI3 KR144-1 Documented by User: LEONIE Delaney 02/19/25 13:22 [...] Cosigner Signature (if applicable): CC: ~ Signed [facility]06-30-2025 Consult note Author Bi Zaman [facility] Note Date/Time February 21, 2025 1:55p m [facility] Medical Records Department [address] [place] [address] Anesthesia Postop Eval II 02/19/25 0958 MR#: [id number] Acct: [id number] Name: SHASHI OSWALD Rep #:[id number] : 1945 79 From: Bi Zaman MD PCP: Dr. Candelario Santana MD Status:ADM I N Y Race: C Location: MS3 MS308 -1 Anesthesia Postop Eval I Sum Postop Eval Completion status Anesthesia document: Postop Eval 1 completed: Yes Anesthesia Postop Eval I Summary Anesthesia Postop Eval I Summary: Anesthesia Postop Eval I: Assessment Summary Airway patent Yes 02/16/25 12:50 EMBLEM FUSER TENDER.SKOBY Spontaneous unlabored Yes 02/16/25 12:50 EMBLEM FUSER TENDER.FELIPE respirations Mental status Awake,Calm 02/16/25 12:50 EMBLEM FUSER TENDER.SKOBY nausea No 02/16/25 12:50 EMBLEM FUSER TENDER.SKOBY Vomiting No 02/16/25 12:50 EMBLEM FUSER TENDER.SKOBBarb Anesthesia Postop Eval I: Fluid Summary Crystalloid volume administer 2,400 02/16/25 12:50 EMBLEM FUSER TENDER.SKOBY (ml) Colloids volume administered ( ml) Blood Product volume administered (ml) Total IV fluid infused 2,400 02/16/25 12:50 EMBLEM FUSER TENDER.OLEGOBBarb Anesthesia Postop Eval I: Summary Notes Anesthesia Complication No 02/16/25 12:50 EMBLEM FUSER TENDER.FLEIPE Anesthesia Complication Comment: Post-operative progress note to receive 2 units 02/16/25 12:50 EMBLEM FUSER TENDER.FELIPE of PRBCs, awaiting from blood bank, Dr. [...] MD Cosigner Signature: Date CC: ~ Signed [facility] Work Phone: 1(544) [phone] Progress note Author Gia Owusu [facility] Note Date/Time February 18, 2025 12:4 3pm [facility] Medical Records Department [address] [place] [address] Progress Note - Hospitalist 02/18/25 0719 MR#: [id number] Acct: [id number] Name: SHASHI OSWALD Rep #:[id number] : 1945 79 From: Gia Owusu DO PCP: Dr. Candelario Santana MD Status:ADM I N Location: MS3 HI138-7 Reason for Visit Reason for Visit: Left [...] % (Auto) 63.7, Lymph % (Auto) 22.6, Armstrong% (Auto) 10.4 H, Eos % (Auto) 2.4, [...] discharge to SNF versus rehab--> case management/social service coordinator following - Will need pre-CERT Acute [...] need pre-CERT. Charges/Coding Visit Charges Inpatient E&M: 90450 Subs Hosp L2 02/18/25 1243 <Electronically signed by Gia Owusu DO> Cosigner Signature (if applicable): CC: ~ Signed [facility] Work Phone: 1(552) 221-110206-29-2025 Progress note [facility] Medical Records Department [address] [place] [address] Progress Note - Hospitalist 02/18/25 0719 MR#: [id number] Acct: [id number] Name: SHASHI OSWALD Rep #:[id number] : 1945 79 From: Gia Owusu DO PCP: Dr. Candelario Santana MD Status:ADM I N Location: MS3 KO379-2 Reason for Visit Reason for Visit: Left [...] Neut% (Auto) 63.7, Lymph % (Auto) 22.6, Armstrong% (Auto) 10.4 H, Eos % (Auto) 2.4, [...] discharge to SNF versus rehab--> case management/social service coordinator following - Will need pre-CERT Acute [...] need pre-CERT. Charges/Coding Visit Charges Inpatient E&M: 39072 Subs Hosp L2 02/18/25 1243 Cosigner Signature (if applicable): CC: ~ Signed [facility]06-28-2025 Progress note Author Gia Owusu [facility] Note Date/Time February 17, 2025 4:05 pm [facility] Medical Records Department [address] [place] [address] Progress Note - Hospitalist 02/17/25 0745 MR#: [id number] Acct: [id number] Name: SHASHI OSWALD Rep #:[id number] : 1945 79 From: Gia Owusu DO PCP: Dr. Candelario Santana MD Status:ADM I N Location: WI3 UQ505-8 Reason for Visit Reason for Visit: Inability [...] % (Auto) 66.6, Lymph % (Auto) 22.0, Armstrong% (Auto) 10.3 H, Eos % (Auto) 0.3, [...] 24 fluoroscopic images were obtained. Reading Location: [place] [address] Hip X-Ray 02/16/25 08:00 IMPRESSION: Intraoperative fluoroscopy was performed for fracture fixation of the proximal left femur. A total of 24 fluoroscopic images were obtained. Reading Location: [place] [address] Physical Exam Const alert, oriented x3, no [...] discharge to SNF versus rehab--> case management/social service coordinator following - Will need pre-CERT - [...] -Full code Charges/Coding Visit Charges Inpatient E&M: 47130 Subs Hosp L2 02/17/25 1609 <Electronically signed by Gia Owusu DO> Cosigner Signature (if applicable): CC: ~ Signed [facility] Work Phone: 1(645) 551-488406-28-2025 Progress note [facility] Medical Records Department [address] [place] [address] Progress Note - Hospitalist 02/17/25 0745 MR#: [id number] Acct: [id number] Name: SHASHI OSWALD Rep #:[id number] : 1945 79 From: Gia Owusu DO PCP: Dr. Candelario Santana MD Status:ADM I N Location: MS3 OI883-7 Reason for Visit Reason for Visit: Inability [...] Neut% (Auto) 66.6, Lymph % (Auto) 22.0, Armstrong% (Auto) 10.3 H, Eos % (Auto) 0.3, [...] 24 fluoroscopic images were obtained. Reading Location: [facility]- Hip X-Ray 02/16/25 08:00 IMPRESSION: Intraoperative fluoroscopy was performed for fracture fixation of the proximal left femur. A total of 24 fluoroscopic images were obtained. Reading Location: [place] [address] Physical Exam Const alert, oriented x3, no [...] discharge to SNF versus rehab--> case management/social service coordinator following - Will need pre-CERT - [...] -Full code Charges/Coding Visit Charges Inpatient E&M: 36156 Subs Hosp L2 02/17/25 1605 Cosigner Signature (if applicable): CC: ~ Signed [facility]06-28-2025 Progress note Author Matt Chacon [facility] Note Date/Time February 17, 2025 11:4 3am [facility] Medical Records Department [facility] [place] [address] Progress Note - Orthopedic 02/17/25 1137 MR#: [id number] Acct: [id number] Name: SHASHI OSWALD Rep #:[id number] : 1945 79 From: Matt Chacon MD PCP: Dr. Candelario Santana MD Status:ADM I N Location: MS3 OV486-7 Subjective Subjective Postop day 1 status post [...] % (Auto) 66.6, Lymph % (Auto) 22.0, Armstrong% (Auto) 10.3 H, Eos % (Auto) 0.3, [...] 24 fluoroscopic images were obtained. Reading Location: [facility]- Hip X-Ray 02/16/25 08:00 IMPRESSION: Intraoperative fluoroscopy was performed for fracture fixation of the proximal left femur. A total of 24 fluoroscopic images were obtained. Reading Location: [facility]--1 Physical Exam Narrative Dressing?CDI. Distal neurovascular exam [...] Cosigner Signature (if applicable): CC: ~ Signed [facility] Work Phone: 1(607) 357-307406-28-2025 Progress note [facility] Medical Records Department [address] [place] [address] Progress Note - Orthopedic 02/17/25 1137 MR#: [id number] Acct: [id number] Name: SHASHI OSWALD Rep #:[id number] : 1945 79 From: Matt Chacon MD PCP: Dr. Candelario Santana MD Status:ADM I N Location: MS3 YU309-2 Subjective Subjective Postop day 1 status post [...] Neut% (Auto) 66.6, Lymph % (Auto) 22.0, Armstrong% (Auto) 10.3 H, Eos % (Auto) 0.3, [...] 24 fluoroscopic images were obtained. Reading Location: [facility]- Hip X-Ray 02/16/25 08:00 IMPRESSION: Intraoperative fluoroscopy was performed for fracture fixation of the proximal left femur. A total of 24 fluoroscopic images were obtained. Reading Location: [facility]-1 Physical Exam Narrative Dressing?CDI. Distal neurovascular exam [...] Cosigner Signature (if applicable): CC: ~ Signed [facility]06-27-2025 Progress note Author Baldev Berry [facility] Note Date/Time February 16, 2025 3:31 pm [facility] Medical Records Department [address] [place] [address] Progress Note - Hospitalist 02/16/25 0750 MR#: [id number] Acct: [id number] Name: SHASHI OSWALD Rep #:[id number] : 1945 79 From: Baldev Berry DO PCP: Dr. Candelario Santana MD Status:ADM I N Location: WI3 QP590-7 Reason for Visit Reason for Visit: Diagnoses [...] % (Auto) 50.2, Lymph % (Auto) 38.6, Armstrong% (Auto) 8.7, Eos % (Auto) 1.8, Baso [...] Clarity Clear, Urine pH 6.5, Ur Specific [place] 1.010, Urine Protein 30 H, Urine Glucose [...] % (Auto) 60.6, Lymph % (Auto) 27.3, Armstrong% (Auto) 9.3, Eos % (Auto) 1.9, Baso [...] left intertrochanteric fracture. Reading Location: [facility] Hip/Pelvis X-Ray 02/15/25 13:40 IMPRESSION: Comminuted impacted left intertrochanteric fracture. Reading Location: [facility] Physical Exam Const alert and no apparent [...] prophylaxis: SCDs. Charges/Coding Visit Charges Inpatient E&M: 63556 Subs Hosp L2 02/16/25 1531 <Electronically signed by Baldev Berry DO> Cosigner Signature (if applicable): CC: ~ Signed [facility] Work Phone: 1(630) 956-297506-27-2025 Progress note [facility] Medical Records Department [address] [place] [address] Progress Note - Hospitalist 02/16/25 0750 MR#: [id number] Acct: [id number] Name: SHASHI OSWALD Rep #:[id number] : 1945 79 From: Baldev Berry DO PCP: Dr. Candelario Santana MD Status:ADM I N Location: [place] [address] Reason for Visit Reason for Visit: Diagnoses [...] Neut% (Auto) 50.2, Lymph % (Auto) 38.6, Armstrong% (Auto) 8.7, Eos % (Auto) 1.8, Baso [...] Clarity Clear, Urine pH 6.5, Ur Specific [place] 1.010, Urine Protein 30 H, Urine Glucose [...] Neut% (Auto) 60.6, Lymph % (Auto) 27.3, Armstrong% (Auto) 9.3, Eos % (Auto) 1.9, Baso [...] left intertrochanteric fracture. Reading Location: [facility] Hip/Pelvis X-Ray 02/15/25 13:40 IMPRESSION: Comminuted impacted left intertrochanteric fracture. Reading Location: [facility] Physical Exam Const alert and no apparent [...] prophylaxis: SCDs. Charges/Coding Visit Charges Inpatient E&M: 64410 Subs Hosp L2 02/16/25 1531 Cosigner Signature (if applicable): CC: ~ Signed [facility]06-27-2025 Procedure note [facility] Medical Records Department [address] [place] [address] Operative Report 02/16/25 1502 MR#: [id number] Acct: [id number] Name: SHASHI OSWALD Rep #:[id number] : 1945 79 From: Matt Chacon MD PCP: Dr. Candelario Santana MD Status:ADM I N Location: WI3 WG668-6 Procedures Musculoskeletal 20xxx-29xxx: Other Procedure See Report Operative Report (Standard) Operative Information Date of Procedure: 02/16/25 Pre-Operative Diagnosis: Left femur intertrochanteric fracture with subtrochanteric extension, displaced Post-Operative Diagnosis: Same Surgery/Procedure Performed: Left femur cephalomedullary nailing with long gammanail, open reduction internal fixation kosher dietary service manager: Yes Strip Feeder: Holden Delgadillo Tasks completed by assistant cook: Closing, Implanting device and Retracting Type of [...] that apply: Implanted device Implanted device details: Dalton gamma 4 cephalomedullary nail Estimated Blood Loss: 150 cc Specimen collected: No Description of surgery: Operative Report Pre-operative Diagnosis: Left displaced intertrochanteric Femur Fracture with subtrochanteric extension Post-operative Diagnosis: Same Procedure(s) Performed: Left femur open reduction internal fixation, Cephalmedullary Nailing CPT 64928, modifier 22, old fracture requiring significant fracture debridement and difficult open reduction attempts Surgeon: Dr. Matt Chacon MD Environmental Compliance Technician: None Estimated Blood Loss: 150 ml Anesthesia: [...] time transported to the operative theater by [facility]. A Time Out was held and [...] the help of the C-arm with perfect chicken ranch technique. This was placed inthe proximal end of the oblong hole. Final fluorscopic images were then taken and the placement of the intramedullary device and fracture was deemed appropriate. The wounds were irrigated copiously with sterile solution. Vastus lateralis and the deep fascia was closed with 0 vicryl suture in separate layers. The deep dermal layer was closed with 2-0 vicryl suture. Parshall were used to close the skin. Aquacel [...] Candelario Santana MD; Dr. Harrison DO~ Signed [facility]06-27-2025 Consult note Author Sheridan Mcknight [facility] Note Date/Time February 16, 2025 12:5 0pm [facility] Medical Records Department [address] [place] [address] Anesthesia Postop Eval I 02/16/25 1248 MR#: [id number] Acct: [id number] Name: SHASHI OSWALD Rep #:[id number] : 1945 79 From: Sheridan simmons EMBLEM FUSER TENDER PCP: Dr. Candelario Santana MD Status:ADM I N Y Race: C [facility] -1 Anesthesia: Postop Eval I Current Vital [...] Kobpaulette jensen CRNA> Date _ Sheridan Valeratroy EMBLEM FUSER TENDER Cosigner Signature: Date CC: ~ Signed [facility] Work Phone: 1(727) 243-327006-27-2025 Radiology Diagnostic study note [facility] Imaging Services [address] [place] [address] Hip Min 2 Views (Portable) MR#: [id number] Acct: [id number] Name: SHASHI OSWALD Rep #: [id number] : 1945 F 79 From: Hector Talley MD PCP: Dr. Candelario Santana MD Status: ADM I N Study:Hip Min 2 Views (Portable) Date of Exam : 02/16/25 Exam# [id number] Ordering Dr: Ronal Chacon MD PROCEDURE: HIP [...] 24 fluoroscopic images were obtained. Reading Location: [place] [address] CC: Dr. Matt Chacon MD; Dr. Candelario Santana MD ~ Candy Dipper Hand: Signed [facility]06-27-2025 Radiology Diagnostic study note [facility] Imaging Services [address] [place] [address] O.R. Fluoro for C-Arm MR#: [id number] Acct: [id number] Name: SHASHI OSWALD Rep #: [id number] : 1945 F 79 From: Hector Talley MD PCP: Dr. Candelario Santana MD Status: ADM I N Study:O.R. Fluoro for C-Arm Date of Exam: 02/16/25 Exam# [id number] Ordering Dr: Ronal Chacon MD PROCEDURE: HIP [...] 24 fluoroscopic images were obtained. Reading Location: [place] [address] CC: Dr. Matt Chacon MD; Dr. Candelario Santana MD ~ Candy Dipper Hand: Signed [facility]06-27-2025 Consult note [facility] Medical Records Department [address] [place] [address] Anesthesia Postop Eval I 02/16/25 1248 MR#: [id number] Acct: [id number] Name: SHASHI OSWALD Rep #:[id number] : 1945 79 From: Sheridan simmons CRNA PCP: Dr. Candelaroi Santana MD Status:ADM I N Y Race: C Location: [facility]308 1 Anesthesia: Postop Eval I Current Vital [...] Eval 1 completed: Yes 02/16/25 1250 camila EMBLEM FUSER TENDER> Date _ Sheridan Mcknight EMBLEM FUSER TENDER Cosigner Signature: Date CC: ~ Signed [facility]06-27-2025 Consult note Author [facility] Note Date/Time February 16, 2025 9:23 am [facility] Medical Records Department [address] [place] [address] Consultation - Orthopedics 02/16/25912 MR#: [id number] Acct: [id number] Name: SHASHI OSWALD Rep #:[id number] : 1945 79 From: Matt Chacon MD PCP: Dr. Candelario Santana MD Status:ADM I N [place] [facility] AS661-8 HPI Consult Data Date of Consult: 02/16/25 [...] thinners. She is anemic with hemoglobin 8.7. [facility] Medical History Hyperthyroidism Rheumatoid [...] % (Auto) 50.2, Lymph % (Auto) 38.6, Armstrong% (Auto) 8.7, Eos % (Auto) 1.8, Baso [...] Clarity Clear, Urine pH 6.5, Ur Specific [place] 1.010, Urine Protein 30 H, Urine Glucose [...] % (Auto) 60.6, Lymph % (Auto) 27.3, Armstrong% (Auto) 9.3, Eos % (Auto) 1.9, Baso [...] left intertrochanteric fracture. Reading Location: [facility] Hip/Pelvis X-Ray 02/15/25 13:40 IMPRESSION: Comminuted impacted left intertrochanteric fracture. Reading Location: [facility] Assessment & Plan Assessment/Plan (1) Intertrochanteric fracture [...] was signed. Charges/Coding Visit Charges Inpatient E&M: 34102 Init Hosp L3 02/16/25 0918 <Electronically signed [...] MD; Dr. Abdirashid Cano DO ~* Signed [facility] Work Phone: 1(233) 519-603206-27-2025 Consult note Author Bi [facility] Note Date/Time February 16, 2025 8:45 am [facility] Medical Records Department [address] [place] [address] Pre-Anesthesia Evaluation 02/16/25 0836 MR#: [id number] Acct: [id number] Name: SHASHI OSWALD Rep #:[id number] : 1945 79 From: Bi Zaman MD PCP: Dr. Candelario Santana MD Status:ADM I N Y Race: C [place] [facility] MS308 -1 ASA Classification* ASA Classification ASA [...] Gamma nail. Anesthesia History Anesthesia History - creosoting engineer: Anesthesia History - creosoting engineer Hx Hospitalization Yes: 02/202211/20/22 12:16 Any Problems [...] Yes NPO since: 00:00 PONV PONV - creosoting engineer: PONV - creosoting engineer Female HX of Motion Sickness HX of N/V After Surgery Non-Smoker Duration of Surgery greater than 60 minutes Number of Risk Factors PONV Score Height & Weight Height & Weight: Anesthesia: Height & Weight Height 5 ft 1 in 02/15/25 16:04 Weight: 57.289 kg 02/15/25 16:04 Body Mass Index (BMI) 23.8 02/15/25 16:04 Respiratory Assessment Respiratory Assessment - creosoting engineer: Respiratory Tract Infection 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 Hx Respiratory Tract Infection No 02/16/25 00:28 STOP Sleep Apnea STOP Sleep Apnea - creosoting engineer: STOP Sleep Apnea - creosoting engineer Hx Hypertension Yes: CONTROLLED WITH MED 02/15/25 [...] Tobacco Use History Tobacco Use History - creosoting engineer: Tobacco Use History - creosoting engineer Tobacco Use Smoking Status Never smoker 02/15/25 16:04 Hx Tobacco Use No 02/15/25 16:04 Years Smoking Packs Smoked per Day Smoking Cessation Date was within the last 15 years Hx Smoking Cessation Date Hx Smoking Cessation Counseling Hematologic Medial History Hematologic 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: Hematologic Medical Hx - diabetologist Hx of Blood Transfusion No 02/15/25 16:04 [...] confused, unrespo /Reproduction History /Reproductive History - creosoting engineer: /Reproductive Hx- creosoting engineer Hx Now Gestational Age (in weeks): EDC: [...] mls @ 15 mls/hr 02/15/25 16:08 IV .[id number] PRN Saline Flush Sodium Chloride 250 mls @ 15 mls/hr 02/15/25 16:08 IV .[id number] PRN Additional IVPB Infusion Lactated Ringer's 1,000 [...] 120 Ml Liquid PO Not Given 4X/DAY [facility] Ondansetron HCl 4 mg 02/15/25 16:01 Ondansetron [...] MD Cosigner Signature: Date CC: ~ Signed [facility] Work Phone: 1(928) [phone] Consult note [facility] Medical Records Department [address] [place] [address] Consultation - Orthopedics 02/16/25912 MR#: [id number] Acct: [id number] Name: SHASHI OSWALD Rep #:[id number] : 1945 79 From: Matt Chacon MD PCP: Dr. Candelario Santana MD Status:ADM I N Location: MS3 ZA125-7 HPI Consult Data Date of Consult: 02/16/25 [...] for a week. [facility] but since the pain worsened she came to the hospital yesterday. Prior to thefall she wasable to ambulate without any ambulatory aid. She was mainly housebound elevatedbut did go some grocery runs. Denied any significant balance issues or limping prior to the fall. She is a known diabetic. Denies any blood thinners. She is anemic with hemoglobin 8.7. [facility] Medical History Hyperthyroidism Rheumatoid [...] Neut% (Auto) 50.2, Lymph % (Auto) 38.6, Armstrong% (Auto) 8.7, Eos % (Auto) 1.8, Baso [...] Clarity Clear, Urine pH 6.5, Ur Specific [place] 1.010, Urine Protein 30 H, Urine Glucose [...] Neut% (Auto) 60.6, Lymph % (Auto) 27.3, Armstrong% (Auto) 9.3, Eos % (Auto) 1.9, Baso [...] left intertrochanteric fracture. Reading Location: [facility] Hip/Pelvis X-Ray 02/15/25 13:40 IMPRESSION: Comminuted impacted left intertrochanteric fracture. Reading Location: [facility] Assessment & Plan Assessment/Plan (1) Intertrochanteric fracture [...] was signed. Charges/Coding Visit Charges Inpatient E&M: 45984 Init Hosp L3 02/16/25 0918 Cosigner Signature [...] MD; Dr. Abdirashid Cano DO ~* Signed [facility]06-27-2025 Consult note [facility] Medical Records Department [address] [place] [address] Pre-Anesthesia Evaluation 02/16/25 0836 MR#: [id number] Acct: [id number] Name: SHASHI OSWALD Rep #:[id number] : 1945 79 From: Bi Zaman MD PCP: Dr. Candelario Santana MD Status:ADM I N Y Race: C Location: WI3 MS308 -[id number] ASA Classification* ASA Classification ASA [...] Gamma nail. Anesthesia History Anesthesia History - creosoting engineer: Anesthesia History - creosoting engineer Hx Hospitalization Yes: 02/202211/20/22 12:16 Any Problems [...] Yes NPO since: 00:00 PONV PONV - creosoting engineer: PONV - creosoting engineer Female HX of Motion Sickness HX of N/V After Surgery Non-Smoker Duration of Surgery greater than 60 minutes Number of Risk Factors PONV Score Height & Weight Height & Weight: Anesthesia: Height & Weight Height 5 ft 1 in 02/15/25 16:04 Weight: 57.289 kg 02/15/25 16:04 Body Mass Index (BMI) 23.8 02/15/25 16:04 Respiratory Assessment Respiratory Assessment - creosoting engineer: Respiratory Tract Infection 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 Hx Respiratory Tract Infection No 02/16/25 00:28 STOP Sleep Apnea STOP Sleep Apnea - creosoting engineer: STOP Sleep Apnea - creosoting engineer Hx Hypertension Yes: CONTROLLED WITH MED 02/15/25 [...] Tobacco Use History Tobacco Use History - creosoting engineer: Tobacco Use History - creosoting engineer Tobacco Use Smoking Status Never smoker 02/15/25 16:04 Hx Tobacco Use No 02/15/25 16:04 Years Smoking Packs Smoked per Day Smoking Cessation Date was within the last 15 years Hx Smoking Cessation Date Hx Smoking Cessation Counseling Hematologic Medial History Hematologic 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: Hematologic Medical Hx - diabetologist Hx of Blood Transfusion No 02/15/25 16:04 [...] confused, unrespo /Reproduction History /Reproductive History - creosoting engineer: /Reproductive Hx- creosoting engineer Hx Now Gestational Age (in weeks): EDC: [...] mls @ 15 mls/hr 02/15/25 16:08 IV .[id number] PRN Saline Flush Sodium Chloride 250 mls @ 15 mls/hr 02/15/25 16:08 IV .[id number] PRN Additional IVPB Infusion Lactated Ringer's 1,000 [...] MD Cosigner Signature: Date CC: ~ Signed [facility]06-26-2025 History and physical note Author Lakeshia Mas [facility] Note Date/Time February 15, 2025 3:05 pm [facility] Medical Records Department [address] [place] [address] H&P Exam - Hospitalist 02/15/25 1456 MR#: [id number] Acct: [id number] Name: SHASHI OSWALD Rep #:[id number] : 1945 79 From: Lakeshia Mas MD PCP: Dr. Candelario Santana MD Status:REG E R Location: ED HPI - General General Date of Admission: 02/15/25 Date of Service: 02/15/25 Chief Complaint: Left hip fracture HPI Narrative SHASHI OSWALD, is a 79-year-old female history of diabetes, hypertension, hypothyroidism presented to [facility] ED 02/15/2025 with inability to walk. [...] get up [facility]. On arrival in the ED patient [...] has no other new or acute complaints [facility] Medical History Wears glasses [...] % (Auto) 50.2, Lymph % (Auto) 38.6, Armstrong% (Auto) 8.7, Eos % (Auto) 1.8, Baso [...] Clarity Clear, Urine pH 6.5, Ur Specific [place] 1.010, Urine Protein 30 H, Urine Glucose (UA) Normal, Urine Ketones 15 H, Urine Occult Blood 10 H, Urine Nitrite Negative, Urine Bilirubin Negative, Urine Urobilinogen 8 H, Ur Leukocyte Esterase Negative Imaging Radiology Impression Femur X-Ray 02/15/25 13:40 IMPRESSION: Comminuted impacted left intertrochanteric fracture. Reading Location: [facility] Hip/Pelvis X-Ray 02/15/25 13:40 IMPRESSION: Comminuted impacted left intertrochanteric fracture. Reading Location: [facility] Assessment & Plan Assessment/Plan (1) Hip fracture: [...] Mas MD Charges/Coding Visit Charges Inpatient E&M: 50223 Init Hosp L2 02/15/25 1505 <Electronically signed by Lakeshia Mas MD> Cosigner Signature (if applicable): CC: Dr. Lakeshia Mas MD; Dr. Candelario Santana MD~ Signed [facility] Work Phone: 1(611) 989-615906-26-2025 Evaluation note* Diagnosis Onset Date Resolution Status [...] Constipation chronic February 15, 2 025 2:56pm [facility] Work Phone: 1([phone]) 830-767006-26-2025 Evaluation note* Diagnosis Onset Date Resolution Status [...] 2:56pm Status post hip surgery deleted [facility] 2024 2:56pm Debility acute February 21, 2025 2:16pm H/O thyroidectomy acute February 2:16pm History of hemorrhoids acute [facility] 2024 2:16pm Hyponatremia acute February 21 2:16pm Occult blood in stools acute [facility] 2024 2:16pm Paroxysmal atrial fibrillation acute February [...] (ORIF) procedure inactive February 21, 2025 2:16pm [facility] Work Phone: 1(821) 428-806706-26-2025 Evaluation note* Diagnosis Onset Date Resolution Status [...] 2:56pm Status post hip surgery deleted [facility] 2024 2:56pm Debility acute February 21, 2025 [...] inactive February 2:16pm History of hemorrhoids inactive [facility] 2024 2:16pm History of open reduction an d internal fixation (ORIF) procedure inactive February 21, 2025 2:16pm Hyperlipemia inactive February 21 2:16pm Hypothyroidism inactive February 21, 2025 2:16pm Murmur, cardiac inactive February 21, 2025 2:16pm Parkinson's disease inactive February 21, 2025 2:16pm Status post hip surgery inactive [facility] 2024 2:16pm [facility] Work Phone: 1(342) 823-814006-26-2025 Evaluation note* Diagnosis Onset Date Resolution Status [...] (ORIF) procedure inactive March 29, 2025 1:54pm [facility] Work Phone: 1([phone]) 516-186806-26-2025 Discharge summary Author Abdirashid Cano [facility] Note Date/Time February 15, 2025 2:40 pm [facility] Medical Records Department [address] [place] [address] Emergency Department Summary 02/15/25 MR#: [id number] Acct: [id number] Name: SHASHI OSWALD Rep #:[id number] : 1945 79 From: Abdirashid Cano DO [...] up she came in by EMS today. [facility] Medical History Wears glasses Rash Thyroid disease [...] % (Auto) 50.2 Lymph % (Auto) 38.6 Armstrong % (Auto) 8.7 Eos % (Auto) 1.8 Baso % (Auto) 0.4 Absolute Neuts (auto) 4.6 Absolute Lymphs (auto) 3.52 Nucleated RBC % 0 Urine Color Straw Urine Clarity Clear Urine pH 6.5 Ur Specific [place] 1.010 Urine Protein 30 H Urine Glucose (UA) Normal Urine Ketones 15 H Urine Occult Blood 10 H Urine Nitrite Negative Urine Bilirubin Negative Urine Urobilinogen 8 H Ur Leukocyte Esterase Negative Radiography Diagnostic Testing: Clinical Impression(s) from Imaging Studies Femur X-Ray 02/15/25 13:40 IMPRESSION: Comminuted impacted left intertrochanteric fracture. Reading Location: [facility] Hip/Pelvis X-Ray 02/15/25 13:40 IMPRESSION: Comminuted impacted left intertrochanteric fracture. Reading Location: [facility] Discharge Plan Triage Chief Complaint: Lower Extremity Injury ED Provider: Abdirashid Cano Dx/Rx/DC Orders Clinical Impression: Fall, Hip fracture Prescriptions: No Action losartan 50 mg tablet 50 mg PO DAILY carbidopa-levodopa 25-100 mg tablet 1 tab PO TID Primary Care Provider: Candelario Santana Chi Referrals: Candelario Santana Chi, MD [Primary Care Provider] - Print Language: Hungarian Disposition Disposition: Acute Care Hospital [facility] What to do if you have Problems For any increased pain, shortness of breath, bleeding, nausea or vomiting, chestpain, or any unexpected problems, contact your Primary Care Provider. Call [facility] ([phone]) or report to the closest Emergency Room. Call 911 if necessary. 02/15/25 1438 <Electronically signed by Abdirashid Cano DO> Cosigner Signature (if applicable): CC: Dr. Candelario Santana MD ~ Signed [facility] Work Phone: 1(105) 433-852006-26-2025 History and physical note [facility] Medical Records Department [address] [place] [address] H&P Exam - Hospitalist 02/15/25 1456 MR#: [id number] Acct: [id number] Name: SHASHI OSWALD Rep #:[id number] : 1945 79 From: Lakeshia Mas MD PCP: Dr. Candelario Santana MD Status:REG E R Location: ED HPI - General General Date of Admission: 02/15/25 Date of Service: 02/15/25 Chief Complaint: Left hip fracture HPI Narrative SHASHI OSWALD, is a 79-year-old female history of diabetes, hypertension, hypothyroidism presented to [facility] ED 02/15/2025 with inability to walk. She fell Wednesday of last week and hadher sons help her get to the couch but she has not been able to get up off the couch since then andnotes that friends and family been bringing her food and water/drinks but due tothe persistent painand still not able to get up [facility]. On arrival in the ED patient [...] has no other new or acute complaints [facility] Medical History Wears glasses [...] Neut% (Auto) 50.2, Lymph % (Auto) 38.6, Armstrong% (Auto) 8.7, Eos % (Auto) 1.8, Baso [...] Clarity Clear, Urine pH 6.5, Ur Specific [place] 1.010, Urine Protein 30 H, Urine Glucose (UA) Normal, Urine Ketones 15 H, Urine Occult Blood 10 H, Urine Nitrite Negative, Urine Bilirubin Negative, Urine Urobilinogen 8 H, Ur Leukocyte Esterase Negative Imaging Radiology Impression Femur X-Ray 02/15/25 13:40 IMPRESSION: Comminuted impacted left intertrochanteric fracture. Reading Location: [facility] Hip/Pelvis X-Ray 02/15/25 13:40 IMPRESSION: Comminuted impacted left intertrochanteric fracture. Reading Location: [facility] Assessment & Plan Assessment/Plan (1) Hip fracture: [...] to be on any oral hypoglycemics anymore, [id number], glucose checks sliding scale insulin #Hypothyroidism -With [...] Mas MD Charges/Coding Visit Charges Inpatient E&M: 42785 Init Hosp L2 02/15/25 1505 Cosigner Signature (if applicable): CC: Dr. Lakeshia Mas MD; Dr. Candelario Santana MD~ Signed [facility]06-26-2025 Discharge summary [facility] Medical Records Department [address] [place] [address] Emergency Department Summary 02/15/25 MR#: [id number] Acct: [id number] Name: SHASHI OSWALD Rep #:[id number] : 1945 79 From: Abdirashid Cano DO [...] up she came in by EMS today. [facility] Medical History Wears glasses Rash Thyroid disease [...] % (Auto) 50.2 Lymph % (Auto) 38.6 Armstrong % (Auto) 8.7 Eos % (Auto) 1.8 Baso % (Auto) 0.4 Absolute Neuts (auto) 4.6 Absolute Lymphs (auto) 3.52 Nucleated RBC % 0 Urine Color Straw Urine Clarity Clear Urine pH 6.5 Ur Specific [place] 1.010 Urine Protein 30 H Urine Glucose (UA) Normal Urine Ketones 15 H Urine Occult Blood 10 H Urine Nitrite Negative Urine Bilirubin Negative Urine Urobilinogen 8 H Ur Leukocyte Esterase Negative Radiography Diagnostic Testing: Clinical Impression(s) from Imaging Studies Femur X-Ray 02/15/25 13:40 IMPRESSION: Comminuted impacted left intertrochanteric fracture. Reading Location: [facility] Hip/Pelvis X-Ray 02/15/25 13:40 IMPRESSION: Comminuted impacted left intertrochanteric fracture. Reading Location: [facility] Discharge Plan Triage Chief Complaint: Lower Extremity Injury ED Provider: Abdirashid Cano Dx/Rx/DC Orders Clinical Impression: Fall, Hip fracture Prescriptions: No Action losartan 50 mg tablet 50 mg PO DAILY carbidopa-levodopa 25-100 mg tablet 1 tab PO TID Primary Care Provider: Candelario Santana Chi Referrals: Candelario Santana Chi, MD [Primary Care Provider] - Print Language: Hungarian Disposition Disposition: Acute Care Hospital [facility] What to do if you have Problems For any increased pain, shortness of breath, bleeding, nausea or vomiting, chestpain, or any unexpected problems, contact your Primary Care Provider. Call [facility] ([phone]) or report tothe closest Emergency Room. Call 911 if necessary. 02/15/25 1438 Cosigner Signature (if applicable): CC: Dr. Candelario Santana MD ~ Signed [facility]06-26-2025 Radiology Diagnostic study note [facility] Imaging Services [address] [place] [address]91 Femur Min 2 Views MR#: [id number] Acct: [id number] Name: SHASHI OSWALD Rep #: [id number] : 1945 F 79 From: Joya Vazquez MD PCP: Dr. Candelario Santana MD Status: PRE E R Study:Femur Min 2 Views Date of Exam: Exam# [id number] Ordering Dr: Nathan Cano DO EXAM: XR Left Femur, 2 Views CLINICAL INDICATION: FALL TECHNIQUE: Frontal and lateral views of the left femur. COMPARISON: No relevant prior studies available. FINDINGS: BONES/JOINTS: Comminuted impacted left intertrochanteric fracture. No dislocation. SOFT TISSUES: Soft tissue swelling. RAD/Femur Min 2 Views IMPRESSION: Comminuted impacted left intertrochanteric fracture. Reading Location: [facility] CC: Dr. Candelario Santana MD; Dr. Abdirashid Cano DO ~ Candy Dipper Hand: Signed [facility]06-26-2025 Radiology Diagnostic study note [facility] Imaging Services [address] [place] [address] HIP, UNI W/ Pelvis 2-3 Views MR#: [id number] Acct: [id number] Name: SHASHI OSWALD Rep #: [id number] : 1945 F 79 From: Joya Vazquez MD PCP: Dr. Candelario Santana MD Status: PRE E R Study:HIP, UNI W/ Pelvis 2-3 Views Date of Ex am: 02/15/25 Exam# [id number] Ordering Dr: Nathan Cano DO EXAM: XR [...] left intertrochanteric fracture. Reading Location: [facility] CC: Dr. Candelario Santana MD; Dr. Abdirashid Cano DO ~ Candy Dipper Hand: Signed [facility]06-26-2025 Discharge summary Author Abdirashid Cano [facility] Note Date/Time February 15, 2025 2:40 pm [facility] Medical Records Department [address] [place] [address] Emergency Department Summary 02/15/25 MR#: [id number] Acct: [id number] Name: SHASHI OSWALD Rep #:[id number] : 1945 79 From: Abdirashid Cano DO [...] up she came in by EMS today. [facility] Medical History Wears glasses Rash Thyroid disease [...] % (Auto) 50.2 Lymph % (Auto) 38.6 Armstrong % (Auto) 8.7 Eos % (Auto) 1.8 Baso % (Auto) 0.4 Absolute Neuts (auto) 4.6 Absolute Lymphs (auto) 3.52 Nucleated RBC % 0 Urine Color Straw Urine Clarity Clear Urine pH 6.5 Ur Specific [place] 1.010 Urine Protein 30 H Urine Glucose (UA) Normal Urine Ketones 15 H Urine Occult Blood 10 H Urine Nitrite Negative Urine Bilirubin Negative Urine Urobilinogen 8 H Ur Leukocyte Esterase Negative Radiography Diagnostic Testing: Clinical Impression(s) from Imaging Studies Femur X-Ray 02/15/25 13:40 IMPRESSION: Comminuted impacted left intertrochanteric fracture. Reading Location: [facility] Hip/Pelvis X-Ray 02/15/25 13:40 IMPRESSION: Comminuted impacted left intertrochanteric fracture. Reading Location: [facility] Discharge Plan Triage Chief Complaint: Lower Extremity Injury ED Provider: Abdirashid Cano Dx/Rx/DC Orders Clinical Impression: Fall, Hip fracture Prescriptions: No Action losartan 50 mg tablet 50 mg PO DAILY carbidopa-levodopa 25-100 mg tablet 1 tab PO TID Primary Care Provider: Candelario Santana Chi Referrals: Candelario Santana Chi, MD [Primary Care Provider] - Print Language: Hungarian Disposition Disposition: Acute Care Hospital [facility] What to do if you have Problems For any increased pain, shortness of breath, bleeding, nausea or vomiting, chestpain, or any unexpected problems, contact your Primary Care Provider. Call [facility] ([phone]) or report to the closest Emergency Room. Call 911 if necessary. 02/15/25 1438 <Electronically signed by Abdirashid Cano DO> Cosigner Signature (if applicable): CC: Dr. Candelario Santana MD ~ Signed [facility] Work Phone: 1([phone]) 237-991504-04-2023 History and physical note Author Antony Friend [facility] November 24, 2022 12:29pm Note Date/Time November 24, 2022 12:2 9pm [facility] Medical Records Department [address] [place] [address] History & Physical Exam 11/24/22 1229 MR#: [id number] Acct: [id number] Name: SHASHI OSWALD Rep #:[id number] : 1945 77 From: Antony Tran DO PCP: Dr. Candelario Santana MD Status:REG S DC Location: [place] [address] History and Physical Date of Admission: 11/24/22 77 F who presents to the office today for Follow up visit. Shashi established with this clinic through hospitalization at [facility]. She presented to [facility] ED 03.20.22with abdominal pain in the [...] Appearance: average body habitus and well nourished [facility] Head: normal to inspection Ears: hearing [...] Affect: normal affect Quality Reporting Tobacco Screening ([facility] 138) Smoking Status: Never smoker Assessment [...] Candelario Santana MD; Antony Tran, ~ Signed [facility] Work Phone: 1(497) 614-183604-04-2023 [facility] HospitalEvaluation noteNo assessment information availableWVan Wert [facility] Work Phone: Evaluation note* Diagnosis Onset Date Resolution Status Acute gallstone pancreatitis acute Choledocholithiasis acute Pancreatitis acute UTI (urinary tract infection) acute [facility] Work Phone: Evaluation note* Diagnosis Onset Date Resolution Status Acute gallstone pancreatitis resolved Choledocholithiasis resolved Pancreatitis resolved UTI (urinary tract infection) resolved [facility] Work Phone: Evaluation note* Diagnosis Onset Date Resolution Status Acute gallstone pancreatitis resolved Choledocholithiasis resolved Pancreatitis resolved UTI (urinary tract infection) resolved Bronchitis acute Choledocholithiasis acute [facility] Work Phone: Evaluation note* Diagnosis Onset Date Resolution Status Bronchitis acute Choledocholithiasis acute Bronchitis acute Choledocholithiasis acute [facility] Work Phone: Evaluation note* Diagnosis Onset Date Resolution Status Bronchitis acute Choledocholithiasis acute [facility] Work Phone: Evaluation note* Diagnosis Onset Date Resolution Status Bronchitis acute Bronchitis acute Constipation chronic [facility] Work Phone: Evaluation note* Diagnosis Onset Date Resolution Status Bronchitis acute Constipation chronic [facility] Work Phone: Evaluation note* Diagnosis Onset Date Resolution Status Admit Date Fall acute February 15 2:56pm Hip fracture acute February 15 025 2:56pm [facility] Work Phone: History and physical note Author Lakeshia Mas [facility] Note Date/Time February 15, 2025 3:05 pm [facility] Medical Records Department [address] [place] [address] H&P Exam - Hospitalist 02/15/25 1456 MR#: [id number] Acct: [id number] Name: SHASHI OSWALD Rep #:[id number] : 1945 79 From: Lakeshia Mas MD PCP: Dr. Candelario Santana MD Status:REG E R Location: ED HPI - General General Date of Admission: 02/15/25 Date of Service: 02/15/25 Chief Complaint: Left hip fracture HPI Narrative SHASHI OSWALD, is a 79-year-old female history of diabetes, hypertension, hypothyroidism presented to [facility] ED 02/15/2025 with inability to walk. [...] get up [facility]. On arrival in the ED patient [...] has no other new or acute complaints [facility] Medical History Wears glasses [...] % (Auto) 50.2, Lymph % (Auto) 38.6, Armstrong% (Auto) 8.7, Eos % (Auto) 1.8, Baso [...] Clarity Clear, Urine pH 6.5, Ur Specific [place] 1.010, Urine Protein 30 H, Urine Glucose (UA) Normal, Urine Ketones 15 H, Urine Occult Blood 10 H, Urine Nitrite Negative, Urine Bilirubin Negative, Urine Urobilinogen 8 H, Ur Leukocyte Esterase Negative Imaging Radiology Impression Femur X-Ray 02/15/25 13:40 IMPRESSION: Comminuted impacted left intertrochanteric fracture. Reading Location: [facility] Hip/Pelvis X-Ray 02/15/25 13:40 IMPRESSION: Comminuted impacted left intertrochanteric fracture. Reading Location: [facility] Assessment & Plan Assessment/Plan (1) Hip fracture: [...] Mas MD Charges/Coding Visit Charges Inpatient E&M: 81925 Init Hosp L2 02/15/25 1505 <Electronically signed by Lakeshia Mas MD> Cosigner Signature (if applicable): CC: Dr. Lakeshia Mas MD; Dr. Candelario Santana MD~ Signed [facility] Work Phone: Hospital Discharge instructionsAdditional Instructions [...] was negative for DVT. Date [facility] Dis[facility]: [facility]25[facility] Work Phone: Hospital Discharge instructionsAdditional Instructions Hold next 3 doses of EliquisWVan [facility] Work Phone: Reason for referral (narrative)No reason for referral information availableSheltering Arms Hospital Work Phone: Summary Purpose Family History [...] No May 12, 2020 4:41am Power of Digital Designer No April 4:41am Advance Directive Response Recorded Date/ Time Living Will No March 20, 2022 2:13am Power of Digital Designer No March 20 2:13am Advance Directive Response Recorded Date/ Time Living Will No March 20, 2022 6:32am Power of Digital Designer No March 20 6:32am Advance Directive Response Recorded Date/ Time Living Will No March 20, 2022 5:32am Power of Digital Designer No March 20 5:32am Advance Directive Response Recorded Date/ Time Living Will No November 20, 2022 12:16pm Power of Digital Designer No November 20 12:16pm Advance Directive Response Recorded Date/ Time Living Will No November 20, 2022 11:16am Power of Digital Designer No November 20 11:16am Advance Directive Response Recorded Date/ Time Do you have a Healthcare Power of Digital Designer? No February 15, 2025 1:15pm Advance Directive Response Recorded Date/ Time Do you have a Healthcare Power of Digital Designer? No February 15, 2025 4:04pm Advance Directive Response Recorded Date/ Time Do you have a Healthcare Power of Digital Designer? No February 15, 2025 4:04pm Do you have a Healthcare Power of Digital Designer? No February 22, 2025 6:07pm Advance Directive Response Recorded Date/ Time Do you have a Healthcare Power of Digital Designer? No February 15, 2025 4:04pm Do you have a Healthcare Power of Digital Designer? No February 22, 2025 6:07pm Do you have a Healthcare Power of Digital Designer? No March 18, 2025 10:24am Chief Complaint [...] section and content) DATE CREATED AUTHOR 02/08/2018 [employer] DATE CREATED AUTHOR AUTHOR'S ORGANIZ ATION 02/16/2018 [facility] [employer] DATE CREATED AUTHOR AUTHOR'S ORGANIZ ATION 02/16/2018 [facility] [employer] DATE CREATED AUTHOR AUTHOR'S ORGANIZ ATION 05/17/2025 [facility] Goals (unrecognized section and content) Goals may [...] Active Start : February 17, 2025 Dr. aBldev Berry DO Other Provider Active Star t: [...] Status: Active Member Role/Relationship Status Dates Dr. Candealrio Santana MD Primary Care Provider Active Start: [...] BE BASED ON THE PRIMARY CLINICAL RECORDS. [facility] [employer] [facility] Care. provides no warranty or guarantee of the accuracy or completeness of information in this document.
--- NOTE | 2025-07-03 01:34 | PCM.HOSP.N ---
Hospitalist Note Pt's son states that her speech is "more garbled than normal," and she has worsening facial droop. She is baseline forgetful and disoriented at times, drowsy to restless behaviors. Head CT performed in ER to r/o head bleed as she had a fall with possible head strike, this was negative. I ordered NIHSS assessments Q6h and MRI brain w/w/o contrast.
[2025-07-03 05:39] LABS: Hematocrit 33.0 % (37-47); Hemoglobin 12.0 g/dL (12.0-15.0); Immature Granulocytes Count 0.020 X10^3/uL (0.0-0.0); Mean Corp Hgb Conc 36.4 g/dL (32-36); Mean Corpuscular Volume 89.2 fL (81-99); Mean Platelet Vol. 8.9 fl (6.2-12.0); NRBC Flagged by Analyzer 0 % (0-5); Platelet Count 210 K/mm3 (150-450); RBC Distribution Width CV 13.2 % (11.6-14.6); RBC Distribution Width SD 43.2 fl (35.1-43.9); Red Blood Count 3.70 M/mm3 (4.2-5.4); White Blood Count 8.5 K/mm3 (4.4-11.0)
[2025-07-03 06:27] LABS: Anion Gap 15 (5-15); BUN 10 mg/dL (4-19); BUN/Creat Ratio 17.9 RATIO (10-20); Calcium,Total 8.4 mg/dL (7.6-11.0); Carbon Dioxide 15.2 mmol/L (21.0-32.0); Chloride 109 mmol/L (98-108); Estimated Creatinine Clearance 43.73 ml/min (50-250); Potassium 3.3 mmol/L (3.3-5.1)
[2025-07-03 06:32] LABS: Glucose 161 mg/dL (70-99)
--- NOTE | 2025-07-03 08:42 | MRI_ITS ---
PROCEDURE: BRAIN WITHOUT CONTRAST 07/03/2025 REASON FOR EXAM: STROKE TECHNIQUE: Procedure Code: MRIBR Modality: MR Procedure: BRAIN WITHOUT CONTRAST Multiplanar and multisequence images were obtained. COMPARISON: July 02, 2025 FINDINGS: Brain: A focus of restricted diffusion is shown in the anterior medial right thalamus. The degree of restriction is minimal on the ADC map suggesting this is subacute. No other site of acute ischemia is seen. A few foci of blooming artifact are shown in the basal ganglia, right temporal lobe and left anterior frontal lobe. Ventricles: Extensive T2 prolongation is shown in the periventricular white matter, deep white matter and subcortical white matter. Focus of encephalomalacia is seen in the posterior inferior left occipital lobe. Major Intracranial Vessels: Severe atherosclerotic plaque at the cavernous and supraclinoid portions of the internal carotid arteries and also portions of the V4 segments of the vertebral arteries when compared to prior CT. Flow voids are limited in those heavily calcified segments particularly right cavernous and supraclinoid portions. Sinuses: Clear Mastoids: Clear MRI/Brain without Contrast IMPRESSION: 1. Ischemia is present in the right thalamus. This is favored to be acute to subacute. No hemorrhage seen. Patient may benefit from CT angiogram. 2. Chronic microvascular ischemic changes, volume loss. 3. Atherosclerotic change. [place] Alert: As above The critical findings in the findings and impression above were relayed directl y by me by telephone to Beth Sky on 07/03/2025 at 10:17 am with readback verification. Reading Location: [id number]
--- NOTE | 2025-07-03 10:25 | ECHOL_ITS ---
Reason For Study Reason For Study: TIA/CVA Procedure This was a limited 2D transthoracic echocardiogram. Exam performed portable in patient room. Left Ventricle Normal LV size. Mild concentric left ventricular hypertrophy. The left ventricular ejection fraction is 70 %. Right Ventricle Normal right ventricle. Atria The left atrium is mildly enlarged. Normal right atrium. Prominent eustachian valve. Mitral Valve Severe mitral valve annular calcification. Trivial mitral valve regurgitation. Tricuspid Valve Normal tricuspid valve. Aortic Valve The aortic valve is not well visualized in the short axis view. Pulmonic Valve The pulmonic valve is not well visualized. Great Vessels The aortic root is not well visualized. Pericardium/Pleural No pericardial effusion. MMode/2D Measurements & Calculations LVIDd: 3.7 cm IVSd: 1.0 cm LVAd ap4: 19.2 cm2 LVIDs: 1.9 cm LVPWd: 1.0 cm LVLd ap4: 6.5 cm FS: 49.4 % EDV(MOD-sp4): 45.7 ml EDV(sp4-el): 48.1 ml LVAs ap4: 8.7 cm2 LVLs ap4: 5.3 cm ESV(MOD-sp4): 12.9 ml ESV(sp4-el): 12.3 ml EF(MOD-sp4): 71.8 % EF(sp4-el): 74.5 % SV(MOD-sp4): 32.8 ml SV(sp4-el): 35.8 ml SI(MOD-sp4): 22.5 ml/m2 ECHO/Echo, Limited Study Interpretation Summary Mild concentric left ventricular hypertrophy. The left ventricular ejection fraction is 70 %. The left atrium is mildly enlarged. Severe mitral valve annular calcification. Trivial mitral valve regurgitation. Ordering Physician: Beth Sky Referring Physician: Candelario Santana Chi Performed By: Niay Rebollar RDCS, RVT
--- NOTE | 2025-07-03 10:25 | CT_ITS ---
PROCEDURE: CTA HEAD AND NECK W/ CONTRAST 07/03/2025 REASON FOR EXAM: ACUTE CVA Possible right thalamic infarct. TECHNIQUE: Procedure Code: CTCTA.HDNCK Modality: CT Procedure: CTA HEAD AND NECK W/ CONTRAST Multiplanar Sagittal and Coronal images were obtained. 3D post processing was performed CONTRAST: Isovue 370 VOLUME: 100 mL One or more dose reduction techniques were used (e.g., Automated exposure control, adjustment of the mA and/or kV according to patient size, use of iterative reconstruction technique). RADIATION DOSE SUMMARY: CTDlvol: 17 mGy DLP: 245 mGycm COMPARISON: Prior CT scan of the brain dated July 02, 2000 25 and prior MRI examination done earlier in the day. FINDINGS: Aortic Arch: Normal size and branching pattern. Mild atherosclerotic plaque. Brachiocephalic and Subclavians: Mild atherosclerotic plaque without significant stenosis. RIGHT Carotid: Right CCA: Unremarkable. Right ICA: High-grade stenosis at the origin of the right internal carotid artery due to calcific plaque. Subtotal occlusion. Maximum stenosis (NASCET): > 90 % Right ECA: Unremarkable. LEFT Carotid: Left CCA: Unremarkable. Left ICA: Marked degree of calcific plaque at the origin of the left internal carotid artery causing a high-grade stenosis. Maximum stenosis (NASCET): Greater than 85% % Left ECA: Unremarkable. Vertebrals: Codominant. Arise from the subclavians. Both vertebrals form the basilar. RIGHT Vertebral: Calcific plaques. LEFT Vertebral: Calcific plaques. Anatomy: [place] anatomy is normal. Aneurysm or avm: No intracranial aneurysms or large vascular malformations are identified. Anterior cerebral arteries: Unremarkable: Middle cerebral arteries: Unremarkable. Basilar artery: Unremarkable. Posterior cerebral arteries: Unremarkable. Other major branches of the posterior circulation: Major venous structures: Unremarkable. Other findings: Neck: Lungs: Bones: CT/CTA Head AND Neck W/ Contrast IMPRESSION: High-grade stenosis at the origin of both internal carotid arteries. Reading Location: [id number]
--- NOTE | 2025-07-03 11:55 | CASEMGMT ---
Social Work Primary Care Doctor: Dr. Santana Speciality doctors: none Insurance: [employer] Pharmacy: Patient utilizes [facility]. Advanced directives: no AD. Not interested in information LNOK:. 2 sons and 1 daughter. Her children live in the area. Marital/Social History: Living Situation: Patient lives with her son Stoney. There are 5 steps into the home. ADL's/Prior level of functioning: Stoney reported his mother is able to complete most of her ADL"s but he does assist. He reported she was walking with a walker but her balance is not good. Transportation: her son DME: , BSC, cane [facility]/home health history: [facility], no HH history Support/Community Services: [facility]: none Substance abuse history: none Assessment: Patient lives with her son Stoney. There are 5 steps into the home. Patient reported SW can call her son Stoney. JEWEL discussed with Stoney the possibility of his mother DC to a SNF. Stoney asked that the list of SNF options be left in the patients room for him to review. PLAN: Patient wants more therapy. JEWEL discussed with the son Stoney regarding the patient DC to a SNF. REGI Rousseau
--- NOTE | 2025-07-03 12:15 | CASEMGMT ---
Discharge Planning A list of SNF providers including quality and resource use data and consistent with the patient's preferred geographic region, medical needs, and insurance network was created in [facility] Guide. This list was provided to the pt. Saskia Barron, Discharge Planning Asst.
--- NOTE | 2025-07-03 12:34 | STROKE.CONS ---
Assessment and Plan: Stroke Assessment/Plan SHASHI OSWALD is a 80 F with a history of Parkinson's on whom we are consulted for stroke. Neurological examination shows low NIHSS, and these deficits may be attributable to other causes. Neuroimaging shows [id number] R thalamic stroke and high grade stenosis of bilateral internal carotids. She is high risk for stroke and has multiple risk factors and the benefit of anticoagulation here must be weighed against her significant risk of falls. - evaluation by PT/OT/SLT - recommend ASA 81 today and resuming her Eliquis anticoagulation tomorrow if she is in controlled environment - the half-way decision to continue anticoagulation should involved consideration of her living situation and be made in concert with patient/family given her risk of falls, especially at home. - agree with SNF placement - recommend consultation of Vascular Surgery for her bilateral carotid stenosis - goal BP systolic < 130 now (no need for permissive HTN at this point) - check LDL: low dose statin appropriate if tolerated and LDL 70 as at last check - continue current carbidopa-levodopa regimen Benitez Nugent MD [facility] HPI Consult Data Date of Consult: 07/03/25 HPI Narrative HPI Narrative: SHASHI OSWALD, is a 80 F with a history of Parkinson's pAF, T2DM, who presents after fall and was found today to have [id number] R thalamic stroke. Was on Eliquis for pAF which was held when she presented after fall (no bleed found on imaging). She is a willing but imperfect historian and history is largely per chart. SHe notes PD meds do help her movement problems, and confirms she has been living at home with her son. NIHSS 3 though this arm movement likely reflects chronic shoulder problems/pain and question difficulty may reflect dementia: this is a low-NIHSS stroke. [facility] Medical History Cognitive dysfunction History of hemorrhoids Murmur, cardiac Hyperlipemia Hypothyroidism Diabetes mellitus, type 2 High total serum IgA Pre-syncope Tachycardia Elevated troponin Choledocholithiasis Rheumatoid arthritis Kidney stones Asthma Irregular heart beat Migraines Parkinson's disease Wears glasses Arthritis Restless legs Syncope Dietary restriction Non-smoker Leg cramps Chronic anemia Hypertension Home Medications Medication Instructions Recorded Last Taken Type carbidopa 25 mg-levodopa 100 mg 1 tab PO TID parkinson 02/15/25 02/21/25 History tablet acetaminophen 500 mg tablet 1,000 mg (2 x 500 mg) PO Q8 pain 02/21/25 02/21/25 Rx #0 tabs ergocalciferol (vitamin D2) 1,250 1,250 mcg PO Q7D supplement #0 caps 02/21/25 Unknown Rx mcg (50,000 unit) capsule (Vitamin D2) calcium carbonate 500 mg (2.5 x 200 mg calcium (500 03/08/25 Unknown Rx mg)) PO TIDCM #1 TAB diclofenac sodium 1 % topical gel 2 g topical BID #100 grams 03/08/25 Unknown Rx (Voltaren Arthritis Pain) levothyroxine 25 mcg tablet 25 mcg PO DAILY@0600 #1 TAB 03/08/25 Unknown Rx melatonin 3 mg tablet 3 mg PO QHS 04/11/25 Unknown History multivitamin 1 tab PO QAM 04/11/25 Unknown History Allergy/AdvReac Type Severity Reaction Status Date / Time Penicillins Allergy Intermediate Hives Verified 07/02/25 21:09 Family History Father Myocardial infarction Hypertension Heart disease Sister Breast cancer Mother CVA (cerebral vascular accident) Surgical History S/P CABG (coronary artery bypass graft) Status post hip surgery History of open reduction and internal fixation (ORIF) procedure Hx of right cataract extraction Hx of left cataract extraction Hx of esophagogastroduodenoscopy Hx of colonoscopy History of ERCP S/P tubal ligation History of thoracic surgery H/O thyroidectomy History of cholecystectomy Hx of appendectomy Social History household members: other details: [facility] Smoking Status: Never smoker alcohol intake: never substance use type: does not use what type of physical activity do you participate in: none Vital Signs Vital Signs Vital Signs: 07/02/25 21:07 07/02/25 23:07 07/03/25 00:07 Temperature 98.7 F 97.8 F Temperature Source Oral Pulse Rate 85 80 81 Respiratory Rate 18 20 H Respiratory Effort Respiratory Depth Respiratory Pattern Blood Pressure 170/85 H 158/88 H 131/99 H Blood Pressure Mean 113 111 109 Blood Pressure Source Blood Pressure Position Blood Pressure Location Pulse Ox 98 100 Oxygen Delivery Method Room Air 07/03/25 01:00 07/03/25 01:48 07/03/25 02:32 Temperature 97 F L 97.9 F Temperature Source Temporal Temporal Pulse Rate 84 80 Respiratory Rate 16 16 Respiratory Effort Normal Non-Labored Respiratory Depth Normal Respiratory Pattern Normal Blood Pressure 126/78 H 125/75 H Blood Pressure Mean 94 91 Blood Pressure Source Monitor Monitor Blood Pressure Position Semi-Fowlers Semi-Fowlers Blood Pressure Location Left Arm Left Arm Pulse Ox 98 98 Oxygen Delivery Method Room Air Room Air Room Air 07/03/25 07:12 07/03/25 08:24 07/03/25 10:30 Temperature 98.2 F Temperature Source Oral Pulse Rate 74 Respiratory Rate 17 Respiratory Effort Normal Non-Labored Respiratory Depth Normal Respiratory Pattern Normal Blood Pressure 115/69 Blood Pressure Mean 84 Blood Pressure Source Monitor Blood Pressure Position Semi-Fowlers Blood Pressure Location Left Arm Pulse Ox 100 100 Oxygen Delivery Method Room Air Room Air 07/03/25 11:10 Temperature 97.6 F L Temperature Source Oral Pulse Rate 69 Respiratory Rate 17 Respiratory Effort Respiratory Depth Respiratory Pattern Blood Pressure 126/47 H Blood Pressure Mean 73 Blood Pressure Source Monitor Blood Pressure Position Semi-Fowlers Blood Pressure Location Left Arm Pulse Ox 100 Oxygen Delivery Method Room Air Weight Weight: 49.4 kg Body Mass Index (BMI) 20.5 EEG Results Procedure Details EEG Procedure Details: SHASHI OSWALD is a 80 year old F with a past medical history of , who presents for evaluation of Electroencephalogram on DATE at TIME Physical Exam Neuro Neuro Narrative: Oriented to self, "hospital," not day EOMI, minor facial droop, facial sensation intact, distal sensation intact to light touch, RUE drifting, LE bilaterally antigravity+, HtS intact, no marked tremor over video Lab / Micro Data 07/03/25 05:29 07/03/25 05:29 Labs: Laboratory Results - last 24 hr 07/02/25 22:12: WBC 8.3, RBC 3.87 L, Hgb 12.6, Hct 34.5 L, MCV 89.1, MCH 32.6 H, MCHC 36.5 H, RDW Std Deviation 43.3, RDW Coeff of [place] 13.3, Plt Count 238, MPV 9.1, Immature Gran % (Auto) 0.200, Neut % (Auto) 57.1, Lymph % (Auto) 33.7, [place] % (Auto) 7.5, Eos % (Auto) 1.0, Baso % (Auto) 0.5, Absolute Neuts (auto) 4.8, Absolute Lymphs (auto) 2.80, Nucleated RBC % 0, Sodium 140, Potassium 3.3, Chloride 109 H, Carbon Dioxide 18.7 L, Anion Gap 13, BUN 11, Creatinine 0.60 L, Estim Creat Clear Calc 45.84 L, Est GFR (MDRD) Non-Af 92, BUN/Creatinine Ratio 17.9, Glucose 162 H, Calcium 9.1 07/02/25 23:05: Urine Color Yellow, Urine Clarity Cloudy, Urine pH 7.0, Ur Specific [place] 1.010, Urine Protein 100 H, Urine Glucose (UA) Normal, Urine Ketones Negative, Urine Occult Blood 25 H, Urine Nitrite Negative, Urine Bilirubin Negative, Urine Urobilinogen 1 H, Ur Leukocyte Esterase 500 H, Urine RBC 0-5 SEEN, Urine WBC 25-50 SEEN, Ur Squamous Epith Cells 0 SEEN, Ur Transition Epith Cell 0-5 SEEN, Amorphous Sediment 2+, Urine Bacteria 3+, Urine Mucus 0 SEEN 07/03/25 05:29: WBC 8.5, RBC 3.70 L, Hgb 12.0, Hct 33.0 L, MCV 89.2, MCH 32.4 H, MCHC 36.4 H, RDW Std Deviation 43.2, RDW Coeff of [place] 13.2, Plt Count 210, MPV 8.9, Immature Gran % (Auto) 0.200, Neut % (Auto) 59.5, Lymph % (Auto) 33.1, [place] % (Auto) 5.9, Eos % (Auto) 0.8, Baso % (Auto) 0.5, Absolute Neuts (auto) 5.0, Absolute Lymphs (auto) 2.80, Nucleated RBC % 0, Sodium 139, Potassium 3.3, Chloride 109 H, Carbon Dioxide 15.2 L, Anion Gap 15, BUN 10, Creatinine 0.54 L, Estim Creat Clear Calc 43.73 L, Est GFR (MDRD) Non-Af 94, BUN/Creatinine Ratio 17.9, Glucose 161 H, Calcium 8.4 Imaging Radiology Impression Hip/Pelvis X-Ray 07/02/25 22:23 IMPRESSION: 1. No evidence of acute fracture or dislocation. 2. Mild-moderate bilateral hip arthrosis. 3. Partially imaged left femur ORIF hardware appears intact. Reading Location: [id number] Brain CT 07/02/25 23:04 IMPRESSION: No acute intracranial abnormality. Reading Location: [id number] Brain MRI 07/03/25 08:42 IMPRESSION: 1. Ischemia is present in the right thalamus. This is favored to be acute to subacute. No hemorrhage seen. Patient may benefit from CT angiogram. 2. Chronic microvascular ischemic changes, volume loss. 3. Atherosclerotic change. [place] Alert: As above The critical findings in the findings and impression above were relayed directly by me by telephone to Beth Sky on 07/03/2025 at 10:17 am with readback verification. Reading Location: [id number] Head/Neck CTA 07/03/25 10:25 IMPRESSION: High-grade stenosis at the origin of both internal carotid arteries. Reading Location: [id number] Active Medications Active Medications Active Medications: Current Medications Generic Name Dose Route Start Last Admin Trade Name Freq PRN Reason Stop Dose Admin Acetaminophen 1,000 mg 07/03/25 06:00 07/03/25 07:19 Acetaminophen 500 Mg Tablet PO 1,000 mg Q8 GIORGI Administration Calcium Carbonate 500 mg 07/03/25 08:00 07/03/25 11:29 Calcium Carbonate 500 Mg Tablet PO Not Given TIDCM GIORGI Carbidopa/Levodopa 1 tablet 07/03/25 07:00 07/03/25 11:29 Carbidopa/Levodopa 25/100 Tablet PO 1 tablet TIDAC GIORGI Administration Clarify Med Order 0 each 07/03/25 04:00 07/03/25 02:44 Clarify Order NOTE Not Given CLARIFY GIORGI Hydralazine HCl 5 mg 07/03/25 10:24 Hydralazine 20 Mg/Ml Vial IV 07/04/25 10:24 Q30M PRN maintain BP parameters with HR <60 Ceftriaxone Sodium 1 gm in 50 mls @ 100 mls/hr 07/03/25 22:00 Rocephin IV Q24@2200 GIORGI Sodium Chloride 250 mls @ 15 mls/hr 07/03/25 02:17 IV .[id number] PRN Saline Flush Sodium Chloride 250 mls @ 15 mls/hr 07/03/25 02:17 IV .[id number] PRN Additional IVPB Infusion Labetalol HCl 10 - 20 mg 07/03/25 10:24 Labetalol 20 Mg/4 Ml Vial IV 07/04/25 10:24 Q10M PRN PRN maintain BP parameters with HR >/=60 Levothyroxine Sodium 25 mcg 07/03/25 06:00 07/03/25 07:19 Levothyroxine 25 Mcg Tablet PO 25 mcg DAILY@0600 GIORGI Administration Melatonin 3 mg 07/03/25 22:00 Melatonin 3 Mg Tablet PO QHS GIORGI Multivitamins 1 tablet 07/03/25 08:00 07/03/25 08:29 Multivitamins,Therapeutic Tablet PO 1 tablet BREAKFAST GIORGI Administration Non-Formulary Medication 2 gm 07/03/25 10:00 Diclofenac Sodium [Voltaren Arthritis Pain] TOPICAL BID GIORGI Sodium Chloride 10 - 40 ml 07/03/25 02:17 0.9% Saline Lock 10 Ml Syringe IV UD PRN SALINE FLUSH NIHSS NIHSS Nursing Documentation NIHSS Nursing Documentation: NIHSS: Ischemic Stroke/TIA Start: 07/03/25 01:31 Freq: Q6H Status: Complete Protocol: Activity Type Activity Date Activity User E-sign Co-sign Detail Recorded Client Recorded Date Recorded By Document 07/03/25 07:12 [id number] 07/03/25 07:17 07/03/25 07:12 NIH Stroke Scale [NIHSS] A score of 0 is "normal" or asymptomatic . Total possible score is 42. Inpatient: RN or Physician to activate a stroke alert for onset of new stroke symptoms or with NIHSS increase >/= 3 points. Following change in neurological status, NIHSS will be performed per physician order or more frequently PRN. -1a. Level of Consciousness 0 - Alert; keenly responsive -1b. LOC Questions 1 - Answers ONE question correctly -1c. LOC Commands 0 - Performs BOTH tasks correctly -2. Best Gaze 0 - Normal -3. Visual 0 - No visual loss -4. Facial Palsy 1 - Minor paralysis ( flattened nasolabial fold , asymmetry on smiling) -5a. Left Arm 0 - No drift; arm holds 90 ( or 45) degrees for full 10 seconds -5b. Right Arm UN - Amputation or joint fusion, explain : -'UN' explanation right should injury -6a. Left Leg 0 - No drift; leg holds 30- degree position for full 5 seconds -6b. Right Leg 0 - No drift; leg holds 30- degree position for full 5 seconds -7. Limb Ataxia 1 - Present in 1 limb -8. Sensory 1 - Mild-to- moderate sensory loss; -9. Best Language 1 - Mild-to- moderate aphasia; -10. Dysarthria 1 = Mild-to- moderate dysarthria; -11. Extinction and Inattention 0 - No abnormality -Total 6 Query Text:A score of 0 is "normal" or asymptomatic. Total possible score is 42 . ED: Notify Physician for NIHSS increase by > / = 3 points. Inpatient: RN or Physician to activate a stroke alert for NIHSS increase of > / = 3 points. Coma Scale [Assess] -Eye Opening Spontaneous -Motor Obeys Commands -Verbal Confused [Total] -Coma Scale Total 14 NIHSS: Ischemic Stroke/TIA Start: 07/03/25 10:24 Text: For PCU Patients: NIH and Neuro Check every 4 Status: Active hours, PRN and with change in RN caregiver. Freq: [id number] Protocol: Activity Type Activity Date Activity User E-sign Co-sign Detail Recorded Client Recorded Date Recorded By Document 07/03/25 11:10 [id number] 07/03/25 11:20 07/03/25 11:10 NIH Stroke Scale [NIHSS] A score of 0 is "normal" or asymptomatic . Total possible score is 42. Inpatient: RN or Physician to activate a stroke alert for onset of new stroke symptoms or with NIHSS increase >/= 3 points. Following change in neurological status, NIHSS will be performed per physician order or more frequently PRN. -1a. Level of Consciousness 0 - Alert; keenly responsive -1b. LOC Questions 2 - Answers NEITHER question correctly -1c. LOC Commands 0 - Performs BOTH tasks correctly -2. Best Gaze 0 - Normal -3. Visual 0 - No visual loss -4. Facial Palsy 0 - Normal symmetrical movements -5a. Left Arm 0 - No drift; arm holds 90 ( or 45) degrees for full 10 seconds -5b. Right Arm UN - Amputation or joint fusion, explain : -'UN' explanation right shoulder injury, unable to fully move & lift up -6a. Left Leg 0 - No drift; leg holds 30- degree position for full 5 seconds -6b. Right Leg 0 - No drift; leg holds 30- degree position for full 5 seconds -7. Limb Ataxia 0 - Absent -8. Sensory 1 - Mild-to- moderate sensory loss; -9. Best Language 1 - Mild-to- moderate aphasia; -10. Dysarthria 1 = Mild-to- moderate dysarthria; -11. Extinction and Inattention 0 - No abnormality -Total 5 Query Text:A score of 0 is "normal" or asymptomatic. Total possible score is 42 . ED: Notify Physician for NIHSS increase by > / = 3 points. Inpatient: RN or Physician to activate a stroke alert for NIHSS increase of > / = 3 points. Coma Scale [Assess] -Eye Opening Spontaneous -Motor Obeys Commands -Verbal Confused [Total] -Coma Scale Total 14 NIHSS 1a. Level of Consciousness: 0 - Alert; keenly responsive 1b. LOC Questions: 1 - Answers ONE question correctly 1c. LOC Commands: 0 - Performs BOTH tasks correctly 2. Best Gaze: 0 - Normal 3. Visual: 0 - No visual loss 4. Facial Palsy: 1 - Minor paralysis (flattened nasolabial fold, asymmetry on smiling) 5a. Left Arm: 0 - No drift; arm holds 90 (or 45) degrees for full 10 seconds 5b. Right Arm: 1 - Drift; arm drifts downward but doesn’t hit the bed 6a. Left Le - No drift; leg holds 30-degree position for full 5 seconds 6b. Right Le - No drift; leg holds 30-degree position for full 5 seconds 7. Limb Ataxia: 0 - Absent 8. Sensory: 0 - Normal; no sensory loss 9. Best Language: 0 - No aphasia; normal 10. Dysarthria: 0 - Normal 11. Extinction and Inattention: 0 - No abnormality Total: 3
--- NOTE | 2025-07-03 15:55 | PCM.PROGNOTE ---
Subjective Subjective Patient seen and examined with her nurse by bedside. Patient was quite frail and a bit confused though she was able to answer some questions. She was admitted with complaint of debility and frequent falls with inability to ambulate and has been managed for failure to thrive as well as UTI. She was noted to have a facial droop overnight with garbled speech. CT of the brain done showed no evidence of a stroke. MRI is ordered today. He has remained hemodynamically stable. Objective Data Objective Data Vital Signs: Vital Signs Temp Pulse Resp BP Pulse Ox O2 Del Method 97.7 F L 71 17 111/71 100 Room Air 07/03/25 15:06 07/03/25 15:06 07/03/25 15:06 07/03/25 15:06 07/03/25 15:06 07/03/25 15:06 Oxygen Delivery Method Room Air Weight: 108 lb 14.534 oz Body Mass Index (BMI) 20.5 Intake & Output: Intake and Output for Last 24 Hours 07/01/25 07/02/25 07/03/25 23:59 23:59 23:59 Intake Total 450 / 450 Output Total 650 / 650 Balance -200 / -200 Lab / Micro Data 07/03/25 05:29 07/03/25 05:29 Labs: Laboratory Results - last 24 hr 07/02/25 22:12: WBC 8.3, RBC 3.87 L, Hgb 12.6, Hct 34.5 L, MCV 89.1, MCH 32.6 H, MCHC 36.5 H, RDW Std Deviation 43.3, RDW Coeff of [place] 13.3, Plt Count 238, MPV 9.1, Immature Gran % (Auto) 0.200, Neut % (Auto) 57.1, Lymph % (Auto) 33.7, [place] % (Auto) 7.5, Eos % (Auto) 1.0, Baso % (Auto) 0.5, Absolute Neuts (auto) 4.8, Absolute Lymphs (auto) 2.80, Nucleated RBC % 0, Sodium 140, Potassium 3.3, Chloride 109 H, Carbon Dioxide 18.7 L, Anion Gap 13, BUN 11, Creatinine 0.60 L, Estim Creat Clear Calc 45.84 L, Est GFR (MDRD) Non-Af 92, BUN/Creatinine Ratio 17.9, Glucose 162 H, Calcium 9.1 11/10/25 23:05: Urine Color Yellow, Urine Clarity Cloudy, Urine pH 7.0, Ur Specific [place] 1.010, Urine Protein 100 H, Urine Glucose (UA) Normal, Urine Ketones Negative, Urine Occult Blood 25 H, Urine Nitrite Negative, Urine Bilirubin Negative, Urine Urobilinogen 1 H, Ur Leukocyte Esterase 500 H, Urine RBC 0-5 SEEN, Urine WBC 25-50 SEEN, Ur Squamous Epith Cells 0 SEEN, Ur Transition Epith Cell 0-5 SEEN, Amorphous Sediment 2+, Urine Bacteria 3+, Urine Mucus 0 SEEN 07/03/25 05:29: WBC 8.5, RBC 3.70 L, Hgb 12.0, Hct 33.0 L, MCV 89.2, MCH 32.4 H, MCHC 36.4 H, RDW Std Deviation 43.2, RDW Coeff of [place] 13.2, Plt Count 210, MPV 8.9, Immature Gran % (Auto) 0.200, Neut % (Auto) 59.5, Lymph % (Auto) 33.1, [place] % (Auto) 5.9, Eos % (Auto) 0.8, Baso % (Auto) 0.5, Absolute Neuts (auto) 5.0, Absolute Lymphs (auto) 2.80, Nucleated RBC % 0, Sodium 139, Potassium 3.3, Chloride 109 H, Carbon Dioxide 15.2 L, Anion Gap 15, BUN 10, Creatinine 0.54 L, Estim Creat Clear Calc 43.73 L, Est GFR (MDRD) Non-Af 94, BUN/Creatinine Ratio 17.9, Glucose 161 H, Calcium 8.4 Radiography Diagnostic Testing: Radiology Impression Hip/Pelvis X-Ray 07/02/25 22:23 IMPRESSION: 1. No evidence of acute fracture or dislocation. 2. Mild-moderate bilateral hip arthrosis. 3. Partially imaged left femur ORIF hardware appears intact. Reading Location: [facility] Brain CT 07/02/25 23:04 IMPRESSION: No acute intracranial abnormality. Reading Location: [id number] Brain MRI 07/03/25 08:42 IMPRESSION: 1. Ischemia is present in the right thalamus. This is favored to be acute to subacute. No hemorrhage seen. Patient may benefit from CT angiogram. 2. Chronic microvascular ischemic changes, volume loss. 3. Atherosclerotic change. [place] Alert: As above The critical findings in the findings and impression above were relayed directly by me by telephone to Beth Sky on 07/03/2025 at 10:17 am with readback verification. Reading Location: [id number] Echocardiogram 07/03/25 10:25 Interpretation Summary Mild concentric left ventricular hypertrophy. The left ventricular ejection fraction is 70 %. The left atrium is mildly enlarged. Severe mitral valve annular calcification. Trivial mitral valve regurgitation. Ordering Physician: Beth Sky Referring Physician: Candelario Santana Chi Performed By: Niya Rebollar, RDCS, RVT Head/Neck CTA 07/03/25 10:25 IMPRESSION: High-grade stenosis at the origin of both internal carotid arteries. Reading Location: [facility] Physical Exam Const alert and no apparent distress Constitutional Narrative: frail, weak with episodic confusion HEENT normocephalic, head/scalp atraumatic, moist oral mucous membranes and oropharynx normal Eyes EOMs intact bilaterally Neck supple and no JVD Lymph Lymphatic: no lymphedema noted Resp normal respiratory effort, normal air movement and clear to auscultation bilaterally Cardio regular rate, regular rhythm, S1 normal heart sound, S2 normal heart sound and no murmurs GI normal to inspection, nondistended, normoactive bowel sounds, soft to palpation, non-tender and non-distended Extremity normal capillary refill, no clubbing, cyanosis or edema and no calf tenderness General Extremity: no tenderness to palpation of joints or extremities Skin General Skin Exam: no breakdown Neuro CN's II-XII intact bilaterally Neuro Narrative: patient weak, frail, able to follow instructions Motor Exam: general weakness Psych Psych Narrative: frail, confused, flat affect Assessment & Plan Assessment/Plan (1) UTI (urinary tract infection): (2) Frequent falls: (3) Stroke determined by clinical assessment: PLAN: Plan #Acute CVA Patient was noted to have slurring of his speech overnight. CT of the brain showed no acute intracranial pathology. CT of the head and neck showed no hemodynamically significant stenosis. MRI of the brain was done today which showed ischemia in the right thalamus which was reviewed to be acute versus subacute. CTA head and neck showed high-grade stenosis at the origin of both internal carotid arteries Patient on p.o. aspirin and high intensity statin. Consults vascular surgery on account of the findings of high-grade stenosis. Will get carotid ultrasound to confirm. #Debility and weakness with frequent falls and inability to ambulate Patient lives with her son who is her primary caregiver. However patient has been getting weaker and falling at home. He therefore cannot currently take care of her. PT OT on board. Will benefit from long-term placement #UTI: On IV Rocephin. Urine cultures pending. #History of Parkinson disease: On levodopa carbidopa #History of A-fib: On metoprolol. Also on Eliquis. #History of hypothyroidism: On Synthroid #DVT prophylaxis: Patient already anticoagulated CODE STATUS: Full code Charges/Coding Visit Charges Inpatient E&M: 34995 [facility] Hosp L3
--- NOTE | 2025-07-03 16:18 | CDU_ITS ---
Reason For Study Reason For Study: Bilateral Carotid Stenosis Rt. Velocities/BP Lt. Velocities/BP Prox CCA 78.3/0.0 cm/sec. Prox CCA 80.9/12.8 cm/sec. Mid CCA 45.9/4.3 cm/sec. Mid CCA 96.1/12.1 cm/sec. Dist CCA 41.2/7.2 cm/sec. Dist CCA 85.1/12.1 cm/sec. Prox ICA 540.8/129.0 cm/sec. Prox ICA 119.8/34.0 cm/sec. Mid ICA 288.8/14.1 cm/sec. Mid ICA 96.5/21.6 cm/sec. Dist ICA 32.7/6.9 cm/sec. Dist ICA 102.7/21.6 cm/sec. Rt. ICA/CCA = 11.8. Lt. ICA/CCA = 1.2. Prox ECA 99.0/3.2 cm/sec. Prox ECA 107.6/5.6 cm/sec. Rt. Vert. 97.4/9.5 cm/sec. Lt. Vert. 157.8/7.5 cm/sec. Right Extracranial There is homogeneous, smooth atherosclerotic plaque noted in the right common carotid artery. There is heterogeneous, irregular atherosclerotic plaque noted in the right internal carotid artery. There is heterogeneous, irregular atherosclerotic plaque noted in the right external carotid artery. Antegrade flow is noted in the right vertebral artery. Left Extracranial There is heterogeneous, irregular atherosclerotic plaque noted in the left common carotid artery. There is heterogeneous, irregular atherosclerotic plaque noted in the left internal carotid artery. There is heterogeneous, irregular atherosclerotic plaque noted in the left external carotid artery. Antegrade flow is noted in the left vertebral artery. VL/Carotid Duplex Ultrasound Interpretation Summary Severe (>70%) stenosis right extracranial internal carotid. Mild (<50%) stenosis left extracranial internal carotid. Patent and antegrade vertebrals bilaterally. Ordering Physician: Beth Sky Referring Physician: Candelario Santana Chi Performed By: Roman Fish RVT
[2025-07-03] MEDS: 0.9% Saline Lock 10 ML Syringe IV ×2 (18:50→22:36)
[2025-07-04 02:25] VITALS: BP 130/76; PULSE 54; RESP 15; TEMP 36.4; O2SAT 99
--- NOTE | 2025-07-04 02:45 | CT_ITS ---
PROCEDURE: BRAIN/HEAD WITHOUT CONTRAST 07/04/2025 REASON FOR EXAM: LETHARGY TECHNIQUE: Procedure Code: CTBR Modality: CT Procedure: BRAIN/HEAD WITHOUT CONTRAST Coronal and Sagittal reconstruction series were provided. One or more dose reduction techniques were used (e.g., Automated exposure control, adjustment of the mA and/or kV according to patient size, use of iterative reconstruction technique. RADIATION DOSE SUMMARY: CTDI Vol 44.99 mGy DLP :846.73 mGycm COMPARISON: 03-Jul-2025 FINDINGS: Stable right thalamic subacute to chronic infarct. Stable accentuated bilateral cerebral periventricular deep white matter hypodensities denoting hypoperfusion with bilateral cerebral periventricular and subcortical as well as basal ganglia hypodense foci and patches. [place]-white matter differentiation is maintained. Unremarkable posterior fossa structures. No intracerebral or extra axial hemorrhage. Dilated ventricular system, cortical sulci and extra-axial CSF spaces. No definite calvarial fractures. No midline shifts or deformity. The osseous structures in the skull base are unremarkable. Paranasal sinuses are unremarkable. Vascular atheromatous calcifications. CT/Brain/Head without Contrast IMPRESSION: No acute cerebrovascular abnormalities. If clinical symptoms persist, further e valuation with MRI may be considered as clinically warranted. No intra or extra-axial acute hemorrhage. Bilateral cerebral microvascular ischemic changes with brain involutional johnson es. Stable. Reading [facility] [id number]
--- NOTE | 2025-07-04 02:45 | PCM.HOSP.N ---
Hospitalist Note Patient with increased lethargy, difficult to arouse. Had similar presentation per discussion with RN the evening prior but even more notable currently in comparison. To be cautious will obtain CT head to assure no conversion, MRI brain with acute CVA noted upon current work-up and will also obtain ABG and NH level.
[2025-07-04 03:55] LABS: Ammonia 65.2 umol/L (11-51)
[2025-07-04 04:06] LABS: Hematocrit 31.2 % (37-47); Hemoglobin 11.1 g/dL (12.0-15.0); Immature Granulocytes Count 0.010 X10^3/uL (0.0-0.0); Mean Corp Hgb Conc 35.6 g/dL (32-36); Mean Corpuscular Volume 89.1 fL (81-99); Mean Platelet Vol. 9.2 fl (6.2-12.0); NRBC Flagged by Analyzer 0 % (0-5); Platelet Count 207 K/mm3 (150-450); RBC Distribution Width CV 13.2 % (11.6-14.6); RBC Distribution Width SD 43.8 fl (35.1-43.9); Red Blood Count 3.50 M/mm3 (4.2-5.4); White Blood Count 6.9 K/mm3 (4.4-11.0)
[2025-07-04 04:09] VITALS: BMI 20.5
[2025-07-04 04:47] LABS: Allen Test Positive; Base Excess -2 mmol/L (-2 to +2); PO2 92 mmHG (75-100); SITE R Radial; SO2 98 % (94-98)
--- NOTE | 2025-07-04 05:00 | PCM.HOSP.N ---
Hospitalist Note CT head without acute findings, ABG not marked, NH mildly elevated, will order RC lactulose and plan repeat NH.
[2025-07-04 05:37] LABS: Anion Gap 12 (5-15); BUN 18 mg/dL (4-19); BUN/Creat Ratio 26.7 RATIO (10-20); Calcium,Total 9.2 mg/dL (7.6-11.0); Carbon Dioxide 19.4 mmol/L (21.0-32.0); Chloride 106 mmol/L (98-108); Cholesterol 158 mg/dL (<=200); Estimated Creatinine Clearance 43.73 ml/min (50-250); Glucose 103 mg/dL (70-99); Low Density Lipoprotein Calc. 96 mg/dL; Potassium 3.2 mmol/L (3.3-5.1); Triglycerides 59 mg/dL; Very Low Density Lipoprotein 12 mg/dL (5-40); cholesterol:hdl ratio screen 3.18
[2025-07-04 07:02] VITALS: O2SAT 94
[2025-07-04 07:34] VITALS: BP 111/73; PULSE 54; RESP 14; TEMP 36.4; O2SAT 100
--- NOTE | 2025-07-04 07:53 | CON.PCM.SX_ITS ---
Assessment & Plan Assessment/Plan (1) Carotid artery disease: PLAN: CTA images reviewed; R ICA stenosis 76% and L ICA stenosis 55% by NASCET. R carotid stenosis not likely to have contributed to her identified thalamic stroke; but with >70% stenosis it is at threshold to recommend intervention regardless. Will plan for patient to come into the office hopefully with family as well to further discuss surgery on an outpatient basis. Agree with initiating ASA and statin. HPI Consult Data Date of Consult: 07/04/25 HPI Narrative HPI Narrative: SHASHI OSWALD, is a 80 F who was admitted to [facility] on 07/02/25 due to frequent falls at home and acute UTI. During her admission, she was noted to have more garbled speech and facial droop and so MRI brain was obtained which demonstrated acute vs subacute R thalamic stroke. Subsequently, she had further stroke workup including Head/Neck CTA which demonstrated severe R ICA stenosis and moderate L ICA stenosis and carotid duplex which found the same. Her history is significant for Parkinson's seemingly with dementia. She is pleasant, but a very poor historian and no family at bedside on my exam so history obtained via chart review primarily. She is chronically anticoagulated with Eliquis due to Afib. It does not appear she was on any antiplatelet or statin at home. This past summer she'd had a fall at home and suffered a L hip fracture for which she had repair by Dr. Chacon. [facility] Medical History (Updated 07/04/25 @ 15:24 by LEONIE Goodwin) Cognitive dysfunction History of hemorrhoids Murmur, cardiac Hyperlipemia Hypothyroidism Diabetes mellitus, type 2 High total serum IgA Pre-syncope Tachycardia Elevated troponin Choledocholithiasis Rheumatoid arthritis Kidney stones Asthma Irregular heart beat Migraines Parkinson's disease Wears glasses Arthritis Restless legs Syncope Dietary restriction Non-smoker Leg cramps Chronic anemia Hypertension Home Medications Medication Instructions Recorded Last Taken Type carbidopa 25 mg-levodopa 100 mg 1 tab PO TID parkinson 02/15/25 02/21/25 History tablet acetaminophen 500 mg tablet 1,000 mg (2 x 500 mg) PO Q 8 pain 02/21/25 02/21/25 Rx #0 tabs ergocalciferol (vitamin D2) 1,250 1,250 mcg PO Q7D sup plement #0 caps 02/21/25 Unknown Rx mcg (50,000 unit) capsule (Vitamin D2) calcium carbonate 500 mg (2.5 x 200 mg calcium (500 03/08/25 Unknown Rx mg)) PO TIDCM #1 TAB diclofenac sodium 1 % topical gel 2 g topical BID #100 grams 03/08/25 Unknown Rx (Voltaren Arthritis Pain) levothyroxine 25 mcg tablet 25 mcg PO DAILY@0600 thyro id #1 TAB 03/08/25 Unknown Rx melatonin 3 mg tablet 3 mg PO QHS sleep 04/11/25 U nknown History multivitamin 1 tab PO QAM supplement 03/24 Unknown History Allergy/AdvReac Type Severity Reaction Status Date / Time Penicillins Allergy Intermediate Hives Verified 07/02/25 21:09 Family History Father Myocardial infarction Hypertension Heart disease Sister Breast cancer Mother CVA (cerebral vascular accident) Surgical History S/P CABG (coronary artery bypass graft) Status post hip surgery History of open reduction and internal fixation (ORIF) procedure Hx of right cataract extraction Hx of left cataract extraction Hx of esophagogastroduodenoscopy Hx of colonoscopy History of ERCP S/P tubal ligation History of thoracic surgery H/O thyroidectomy History of cholecystectomy Hx of appendectomy Social History household members: other details: [facility] Smoking Status: Never smoker alcohol intake: never substance use type: does not use what type of physical activity do you participate in: none Physical Exam Const alert and no apparent distress General Appearance: cooperative Orientation / Consciousness: oriented to person and oriented to place HEENT normocephalic, head/scalp atraumatic, hearing grossly normal bilaterally, external ears normal and external nose normal Eyes General Eye: normal appearance of both eyes Neck General: normal visual inspection and trachea midline Resp Effort and Inspection: able to speak in complete sentences; Negative for labored, grunting or stridor Cardio regular rate and regular rhythm Neuro moves all extremities Psych Appearance: grossly normal Attitude: calm Mood & Affect: euthymic mood Medical Records Data Medical Nutrition Assessment Dietitian: Malnutrition Criteria Met Start: 07/03/25 17:56 Freq: Status: Active Protocol: Document 07/03/25 17:56 RMA (Rec: 07/03/25 17:56 RMA [id number]) Nutrition Malnutrition Evidence of Yes Malnutrition Exists Malnutrition (severe Chronic ): Evidenced By Suboptimal Energy Intake (Severe),Weight Loss (Severe) Clinical Problem Chronic Disease or Condition Related Malnutrition Etiology severe protein-calorie malnutrition in the context of chronic disease and debility related to inadequate energy/oral intake and difficulty swallowing Signs/Symptoms as evidenced by ~20% unintentional weight loss x less than 6 months, BMI 20.6, PO meeting less than 50% estimated nutrition needs and need for mechanically altered food Status Active Problem Recommendation Dietitian Will liberalize therapeutic diet to regular with Recommendations/ consistency/texture as per [employer]. Changes Will add 120 mL Ensure Plus HP with meals as tolerated. Will add fortified pudding with lunch and dinner tray. May need to consider enteral nutrition support if PO established inadequate and weight continues to decline. Lab / Micro Data 07/04/25 03:15 07/04/25 03:15 Labs: Laboratory Results - last 24 hr 07/04/25 03:15: WBC 6.9, RBC 3.50 L, Hgb 11.1 L, Hct 31.2 L, MCV 89.1, MCH 31.7, MCHC 35.6, RDW Std Deviation 43.8, RDW Coeff of [place] 13.2, Plt Count 207, MPV 9.2, Immature Gran % (Auto) 0.100, Neut % (Auto) 40.9 L, Lymph % (Auto) 46.4 H, [place] % (Auto) 9.2, Eos % (Auto) 3.0, Baso % (Auto) 0.4, Absolute Neuts (auto) 2.8, Absolute Lymphs (auto) 3.22, Nucleated RBC % 0, Sodium 137, Potassium 3.2 L , Chloride 106, Carbon Dioxide 19.4 L, Anion Gap 12, BUN 18, Creatinine 0.67 L, Estim Creat Clear Calc 43.73 L, Est GFR (MDRD) Non-Af 89, BUN/Creatinine Ratio 26.7 H, Glucose 103 H, Calcium 9.2, Ammonia 65.2 H, Triglycerides 59, Cholesterol 158, LDL Cholesterol, Calc 96, VLDL Cholesterol 12, HDL Cholesterol 50, Cholesterol/HDL Ratio 3.18 ABG Data ABG results: ABG 07/04/25 04:43 Specimen Type ART Sample Site R Radial pH 7.48 H Bicarbonate Actual 21.6 L Total CO2 23 Base Excess -2 O2 Saturation 98 ABG pCO2 29.1 L ABG pO2 92 Sky Test Positive O2 Delivery Device Room Air Vent Mode Not entered Imaging Radiology Impression Brain MRI 07/03/25 08:42 IMPRESSION: 1. Ischemia is present in the right thalamus. This is favored to be acute to subacute. No hemorrhage seen. Patient may benefit from CT angiogram. 2. Chronic microvascular ischemic changes, volume loss. 3. Atherosclerotic change. [place] Alert: As above The critical findings in the findings and impression above were relayed directly by me by telephone to Beth Sky on 07/03/2025 at 10:17 am with readback verification. Reading Location: [id number] Echocardiogram 07/03/25 10:25 Interpretation Summary Mild concentric left ventricular hypertrophy. The left ventricular ejection fraction is 70 %. The left atrium is mildly enlarged. Severe mitral valve annular calcification. Trivial mitral valve regurgitation. Ordering Physician: Beth Sky Referring Physician: Candelario Santana Chi Performed By: Niya Rebollar, RDCS, RVT Head/Neck CTA 07/03/25 10:25 IMPRESSION: High-grade stenosis at the origin of both internal carotid arteries. Reading Location: [id number] Brain CT 07/04/25 02:45 IMPRESSION: No acute cerebrovascular abnormalities. If clinical symptoms persist, further evaluation with MRI may be considered as clinically warranted. No intra or extra-axial acute hemorrhage. Bilateral cerebral microvascular ischemic changes with brain involutional changes. Stable. [facility] Charges/Coding Visit Charges Inpatient E&M: 45803 Init Hosp L1
--- NOTE | 2025-07-04 09:47 | CASEMGMT ---
Social Work SW called the son Stoney. Stoney reported he wants his mother to go TCU. He reported if she does not get accepted at TCU then he will bring her home with . [facility] reported [facility]. SW will make the referral to TCU. REGI Rousseau
[2025-07-04 10:33] LABS: Ammonia 82.1 umol/L (11-51)
[2025-07-04 12:29] VITALS: BP 115/58; PULSE 66; RESP 17; TEMP 36.6; O2SAT 100
[2025-07-04 13:48] VITALS: BMI 20.5
--- NOTE | 2025-07-04 14:03 | PCM.PROGNOTE ---
Subjective Subjective Patient seen and examined with her nurse by her bedside. Patient was quite lethargic actually and could not really communicate very well. According to her nurse due to increasing lethargy overnight ammonia was checked. Her ammonia was found to be elevated at around 65. She was therefore started on lactulose. Patient remains very lethargic this morning and unable to do review of systems. Ammonia has been further up to 82.1 today. Objective Data Objective Data Vital Signs: Vital Signs Temp Pulse Resp BP Pulse Ox O2 Del Method 97.8 F 66 17 115/58 L 100 Room Air 07/04/25 12:29 07/04/25 12:29 07/04/25 12:29 07/04/25 12:29 07/04/25 12:29 07/04/25 12:29 Oxygen Delivery Method Room Air Weight: 108 lb 14.534 oz Body Mass Index (BMI) 20.5 Intake & Output: Intake and Output for Last 24 Hours 07/02/25 07/03/25 07/04/25 23:59 23:59 23:59 Intake Total 940 / 940 Output Total 650 / 650 200 / 200 Balance 290 / 290 -200 / -200 Medical Nutrition Assessment Dietitian: Malnutrition Criteria Met Start: 07/03/25 17:56 Freq: Status: Active Protocol: Document 07/03/25 17:56 RMA (Rec: 07/03/25 17:56 RMA [id number]) Nutrition Malnutrition Evidence of Yes Malnutrition Exists Malnutrition (severe Chronic ): Evidenced By Suboptimal Energy Intake (Severe),Weight Loss (Severe) Clinical Problem Chronic Disease or Condition Related Malnutrition Etiology severe protein-calorie malnutrition in the context of chronic disease and debility related to inadequate energy/oral intake and difficulty swallowing Signs/Symptoms as evidenced by ~20% unintentional weight loss x less than 6 months, BMI 20.6, PO meeting less than 50% estimated nutrition needs and need for mechanically altered food Status Active Problem Recommendation Dietitian Will liberalize therapeutic diet to regular with Recommendations/ consistency/texture as per GUSSET FOLDER. Changes Will add 120 mL Ensure Plus HP with meals as tolerated. Will add fortified pudding with lunch and dinner tray. May need to consider enteral nutrition support if PO established inadequate and weight continues to decline. Lab / Micro Data 07/04/25 03:15 07/04/25 03:15 Labs: Laboratory Results - last 24 hr 07/04/25 03:15: WBC 6.9, RBC 3.50 L, Hgb 11.1 L, Hct 31.2 L, MCV 89.1, MCH 31.7, MCHC 35.6, RDW Std Deviation 43.8, RDW Coeff of Cody 13.2, Plt Count 207, MPV 9.2, Immature Gran % (Auto) 0.100, Neut % (Auto) 40.9 L, Lymph % (Auto) 46.4 H, Rice % (Auto) 9.2, Eos % (Auto) 3.0, Baso % (Auto) 0.4, Absolute Neuts (auto) 2.8, Absolute Lymphs (auto) 3.22, Nucleated RBC % 0, Sodium 137, Potassium 3.2 L, Chloride 106, Carbon Dioxide 19.4 L, Anion Gap 12, BUN 18, Creatinine 0.67 L, Estim Creat Clear Calc 43.73 L, Est GFR (MDRD) Non-Af 89, BUN/Creatinine Ratio 26.7 H, Glucose 103 H, Calcium 9.2, Ammonia 65.2 H, Triglycerides 59, Cholesterol 158, LDL Cholesterol, Calc 96, VLDL Cholesterol 12, HDL Cholesterol 50, Cholesterol/HDL Ratio 3.18 07/04/25 09:38: Ammonia 82.1 H Micro: Microbiology 07/02/25 23:05 Urine, Catheterized Urine Culture - Preliminary GNR lactose stock sheets cleaner inspector GNR lactose stock sheets cleaner inspector#2 ABG Data ABG results: ABG 07/04/25 04:43 Specimen Type ART Sample Site R Radial pH 7.48 H Bicarbonate Actual 21.6 L Total CO2 23 Base Excess -2 O2 Saturation 98 ABG pCO2 29.1 L ABG pO2 92 Sky Test Positive O2 Delivery Device Room Air Vent Mode Not entered Radiography Diagnostic Testing: Radiology Impression Echocardiogram 07/03/25 10:25 Interpretation Summary Mild concentric left ventricular hypertrophy. The left ventricular ejection fraction is 70 %. The left atrium is mildly enlarged. Severe mitral valve annular calcification. Trivial mitral valve regurgitation. Ordering Physician: Beth Sky Referring Physician: Candelario Santana Chi Performed By: Niya Rebollar RDCS, RVT Carotid Duplex 07/03/25 16:18 Interpretation Summary Severe (>70%) stenosis right extracranial internal carotid. Mild (<50%) stenosis left extracranial internal carotid. Patent and antegrade vertebrals bilaterally. Ordering Physician: Beth Sky Referring Physician: Candelario Santana Chi Performed By: Roman Fish, RVT Brain CT 07/04/25 02:45 IMPRESSION: No acute cerebrovascular abnormalities. If clinical symptoms persist, further evaluation with MRI may be considered as clinically warranted. No intra or extra-axial acute hemorrhage. Bilateral cerebral microvascular ischemic changes with brain involutional changes. Stable. Reading Location: [place] [id number] Physical Exam Const Constitutional Narrative: Patient very weak and frail and encephalopathic. HEENT normocephalic, head/scalp atraumatic, moist oral mucous membranes and oropharynx normal Eyes PERRL and EOMs intact bilaterally Neck no lymphadenopathy, supple and no JVD Lymph Lymphatic: no lymphadenopathy noted and no lymphedema noted Resp normal respiratory effort, normal air movement and clear to auscultation bilaterally Cardio regular rate, regular rhythm, S1 normal heart sound, S2 normal heart sound and no murmurs GI normal to inspection, nondistended, normoactive bowel sounds, soft to palpation, non-tender and non-distended Extremity normal capillary refill, no clubbing, cyanosis or edema and no calf tenderness General Extremity: no tenderness to palpation of joints or extremities Skin General Skin Exam: no breakdown Neuro Neuro Narrative: patient very weak and lethargic Psych Psych Narrative: encephalopathic Assessment & Plan Assessment/Plan (1) UTI (urinary tract infection): (2) Frequent falls: (3) Stroke determined by clinical assessment: PLAN: Plan #Acute CVA Patient was noted to have slurring of his speech overnight. CT of the brain showed no acute intracranial pathology. CT of the head and neck showed no hemodynamically significant stenosis. MRI of the brain was done today which showed ischemia in the right thalamus which was reviewed to be acute versus subacute. CTA head and neck showed high-grade stenosis at the origin of both internal carotid arteries Patient on p.o. aspirin and high intensity statin. Consults vascular surgery on account of the findings of high-grade stenosis. carotid ultrasound showed severe greater than 70% stenosis of the right extracranial internal carotid and mild less than 50% stenosis of the left extracranial internal carotid. Vascular surgery already consulted. #Acute encephalopathy due to elevated ammonia Patient does not have a known history of underlying liver disease. However she was noted to be very encephalopathic yesterday so ammonia level was checked and was elevated at 65. Ammonia has been further elevated at [address] on lactulose and titrate until 2-3 loose stools daily. Will give rectally as patient is unable to taking p.o. for now. Will check liver enzymes and get liver ultrasound. Will also check hepatitis panel #Debility and weakness with frequent falls and inability to ambulate Patient lives with her son who is her primary caregiver. However patient has been getting weaker and falling at home. He therefore cannot currently take care of her. PT OT on board. Will benefit from long-term placement #UTI: On IV Rocephin. Urine cultures pending. #History of Parkinson disease: On levodopa carbidopa #History of A-fib: On metoprolol. Also on Eliquis. Will speak to son about continued use of Eliquis in light of patient's encephalopathy and history of frequent falls. #History of hypothyroidism: On Synthroid #DVT prophylaxis: Patient already anticoagulated CODE STATUS: Full code Charges/Coding Visit Charges Inpatient E&M: 84723 Subs Hosp L3
--- NOTE | 2025-07-04 14:13 | US_ITS ---
PROCEDURE: ABDOMEN LIMITED 07/04/2025 REASON FOR EXAM: HEPATIC ENCEPHALOPATHY TECHNIQUE: Procedure Code: USABDL Modality: US Procedure: ABDOMEN LIMITED COMPARISON: none FINDINGS: GALLBLADDER: Surgically removed COMMON BILE DUCT: Measures 8.2 mm. mild intrahepatic biliary dilatation. LIVER: Normal size. Increased echotexture. No definite hepatic mass. RIGHT KIDNEY: Normal in size and echogenicity. No mass. No urinary stones. No hydronephrosis. US/Abdomen Limited IMPRESSION: Echogenic liver is nonspecific but may reflect hepatic steatosis vs medical hep atic disease. Mild intrahepatic biliary dilation and CBD dilation which may be related to ketan or cholecystectomy. Reading Location: [id number]
--- NOTE | 2025-07-04 14:33 | CHAPLAIN ---
Type of Pastoral Visit _x__ Initial Visit ___ Follow-up Visit ___ On-call Visit ___ General Patient Visit ___ Spiritual Assessment ___ Family Conference ___ Bereavement ___ Rapid Response ___ Code Blue ___ Other (describe below) Pastoral Care Referral From _x__ Patient ___ Family ___ Nurse ___ Physician ___ Automobile Salesman ___ Service Worker ___ Other (describe below) Sacrament/Intervention _x__ Active listening ___ Anointing ___ Rastafarian ___ Bereavement ___ Communion _x__ Jess exploration ___ ___ Life review _x__ Prayer ___ Reconciliation ___ Sacrament of Sick ___ Supportive presence ___ Wedding ___ Other (describe below) Pastoral Comments patient is awake and sitting up in the chair which she says "I didn't do yesterday"; pt says that she is feeling some better and has had some improvement; pt is slow to speak and answer questions but she does respond; pt has family support per her report; pt has jess in God and welcomes prayers for support today
[2025-07-04 15:50] LABS: AST(SGOT) 31 U/L (<=31); Alanine Aminotransfer ALT/SGPT 9 U/L (<=34); Albumin, Serum 3.0 g/dL (3.4-4.8); Alkaline Phosphatase 88 U/L (35-104); Bilirubin, Direct 0.38 mg/dL (0.00-0.30); Globulin 3.3 g/dL (2.2-4.2)
[2025-07-04 16:20] LABS: Hepatitis B Surface Antigen Nonreactive (Nonreactive); Hepatitis C Antibody Nonreactive (Nonreactive)
[2025-07-04 23:31] VITALS: BP 97/66; PULSE 64; RESP 16; TEMP 37; O2SAT 97
[2025-07-04] MEDS: 0.9% Saline Lock 10 ML Syringe IV (23:49)
[2025-07-05 02:43] VITALS: BMI 20.5
[2025-07-05 05:29] VITALS: BP 118/51; PULSE 62; RESP 16; TEMP 36.6; O2SAT 100
[2025-07-05 06:18] LABS: Anion Gap 11 (5-15); BUN 24 mg/dL (4-19); BUN/Creat Ratio 37.3 RATIO (10-20); Calcium,Total 9.2 mg/dL (7.6-11.0); Carbon Dioxide 16.8 mmol/L (21.0-32.0); Chloride 107 mmol/L (98-108); Estimated Creatinine Clearance 43.73 ml/min (50-250); Glucose 114 mg/dL (70-99); Potassium 3.2 mmol/L (3.3-5.1)
[2025-07-05 07:21] LABS: Hematocrit 30.5 % (37-47); Hemoglobin 11.0 g/dL (12.0-15.0); Immature Granulocytes Count 0.020 X10^3/uL (0.0-0.0); Mean Corp Hgb Conc 36.1 g/dL (32-36); Mean Corpuscular Volume 90.0 fL (81-99); Mean Platelet Vol. 9.3 fl (6.2-12.0); NRBC Flagged by Analyzer 0 % (0-5); Platelet Count 202 K/mm3 (150-450); RBC Distribution Width CV 13.2 % (11.6-14.6); RBC Distribution Width SD 43.3 fl (35.1-43.9); Red Blood Count 3.39 M/mm3 (4.2-5.4); White Blood Count 7.3 K/mm3 (4.4-11.0)
[2025-07-05 08:42] VITALS: BP 125/55; PULSE 63; RESP 17; TEMP 36.1; O2SAT 100
[2025-07-05] MEDS: Potassium Chloride Oral Tablet 20 MEQ 40 MEQ PO (08:49)
[2025-07-05] MEDS: Arthritis Pain Compound 60 CLICK TUBE TOPICAL ×2 (08:50→22:39)
[2025-07-05] MEDS: 0.9% Saline Lock 10 ML Syringe IV ×2 (08:51→19:54)
[2025-07-05 09:31] LABS: Ammonia 44.0 umol/L (11-51)
--- NOTE | 2025-07-05 10:31 | PN_ITS ---
Subjective Subjective Patient seen and examined with her nurse by bedside. She is much more alert and communicative today. She had no active complaints and was eating breakfast. Review of systems otherwise negative. She has remained hemodynamically stable. Objective Data Objective Data Vital Signs: Vital Signs Temp Pulse Resp BP Pulse Ox O2 Del Method 97.0 F L 63 17 125/55 H 100 Room Air 07/05/25 08:42 07/05/25 08:42 07/05/25 08:42 07/05/25 08:42 07/05/25 08:42 07/05/25 09:00 Oxygen Delivery Method Room Air Weight: 108 lb 14.534 oz Body Mass Index (BMI) 20.5 Intake & Output: Intake and Output for Last 24 Hours 07/03/25 07/04/25 07/05/25 23:59 23:59 23:59 Intake Total 940 / 940 50 / 50 Output Total 650 / 650 200 / 200 Balance 290 / 290 -200 / -200 50 / 50 Medical Nutrition Assessment Dietitian: Malnutrition Criteria Met Start: 07/03/25 17:56 Freq: Status: Active Protocol: Document 07/03/25 17:56 RMA (Rec: 07/03/25 17:56 RMA [id number]) Nutrition Malnutrition Evidence of Yes Malnutrition Exists Malnutrition (severe Chronic ): Evidenced By Suboptimal Energy Intake (Severe),Weight Loss (Severe) Clinical Problem Chronic Disease or Condition Related Malnutrition Etiology severe protein-calorie malnutrition in the context of chronic disease and debility related to inadequate energy/oral intake and difficulty swallowing Signs/Symptoms as evidenced by ~20% unintentional weight loss x less than 6 months, BMI 20.6, PO meeting less than 50% estimated nutrition needs and need for mechanically altered food Status Active Problem Recommendation Dietitian Will liberalize therapeutic diet to regular with Recommendations/ consistency/texture as per TELEPHONIC CASE MANAGER. Changes Will add 120 mL Ensure Plus HP with meals as tolerated. Will add fortified pudding with lunch and dinner tray. May need to consider enteral nutrition support if PO established inadequate and weight continues to decline. Lab / Micro Data 07/05/25 07:08 07/05/25 05:36 Labs: Laboratory Results - last 24 hr 07/04/25 03:15: Total Bilirubin 0.75, Direct Bilirubin 0.38 H, AST 31, ALT 9, Alkaline Phosphatase 88, Total Protein 6.3, Albumin 3.0 L, Globulin 3.3, Hep Bs Antigen Nonreactive, Hep Bs Antibody Nonreactive, Hepatitis C Antibody Nonreactive 07/04/25 09:38: Ammonia 82.1 H 07/05/25 05:36: WBC Cancelled, Corrected WBC Cancelled, RBC Cancelled, Hgb Cancelled, Hct Cancelled, MCV Cancelled, MCH Cancelled, MCHC Cancelled, RDW Std Deviation Cancelled, RDW Coeff of Cody Cancelled, Plt Count Cancelled, MPV Cancelled, Immature Gran % (Auto) Cancelled, Neut % (Auto) Cancelled, Lymph % (Auto) Cancelled, [place] % (Auto) Cancelled, Eos % (Auto) Cancelled, Baso % (Auto) Cancelled, Absolute Neuts (auto) Cancelled, Absolute Lymphs (auto) Cancelled, Total Counted Cancelled, Neutrophils % (Manual) Cancelled, Band Neutrophils % Cancelled, Lymphocytes % (Manual) Cancelled, Monocytes % (Manual) Cancelled, Eosinophils % (Manual) Cancelled, Basophils % (Manual) Cancelled, Metamyelocytes % Cancelled, Myelocytes % Cancelled, Promyelocytes % Cancelled, Blast Cells % Cancelled, Plasma Cell % (Manual) Cancelled, Other Cells % Cancelled, Nucleated RBC % Cancelled, Nucleated RBCs/100 WBC Cancelled, Differential Comment Cancelled, Diff Path Review Cancelled, Hypersegmented Neuts Cancelled, Atypical Lymphocytes Cancelled, Reactive Lymphocytes Cancelled, Smudge Cells Cancelled, Toxic Granulation Cancelled, Toxic Vacuolation Cancelled, Dohle Bodies Cancelled, Arlene Rods Cancelled, Platelet Estimate Cancelled, Plt Morphology Comment Cancelled, RBC Morphology Cancelled 07/05/25 05:36: RBC Morphology Cancelled, Polychromasia Cancelled, Hypochromasia Cancelled, Basophilic Stippling Cancelled, Anisocytosis Cancelled, Microcytosis Cancelled, Macrocytosis Cancelled, Spherocytes Cancelled, Sickle Cells Cancelled, Target Cells Cancelled, Tear Drop Cells Cancelled, Ovalocytes Cancelled, Stomatocytes Cancelled, Magana-Throckmorton Bodies Cancelled, Elian Cells Cancelled, Bite Cells Cancelled, Crenated Cell Cancelled, Acanthocytes (Spur) Cancelled, Rouleaux Cancelled, Schistocytes Cancelled, Sodium 135, Potassium 3.2 L, Chloride 107, Carbon Dioxide 16.8 L, Anion Gap 11, BUN 24 H, Creatinine 0.65 L, Estim Creat Clear Calc 43.73 L, Est GFR (MDRD) Non-Af 90, BUN/Creatinine Ratio 37.3 H, Glucose 114 H, Calcium 9.2 07/05/25 07:08: WBC 7.3, RBC 3.39 L, Hgb 11.0 L, Hct 30.5 L, MCV 90.0, MCH 32.4 H, MCHC 36.1 H, RDW Std Deviation 43.3, RDW Coeff of Cody 13.2, Plt Count 202, MPV 9.3, Immature Gran % (Auto) 0.300, Neut % (Auto) 50.3, Lymph % (Auto) 36.5, [place] % (Auto) 8.5, Eos % (Auto) 3.6, Baso % (Auto) 0.8, Absolute Neuts (auto) 3.7, Absolute Lymphs (auto) 2.67, Nucleated RBC % 0 07/05/25 08:50: Ammonia 44.0 Micro: Microbiology 07/02/25 23:05 Urine, Catheterized Urine Culture - Final Escherichia coli Klebsiella pneumoniae sp pneum Radiography Diagnostic Testing: Radiology Impression Carotid Duplex 07/03/25 16:18 Interpretation Summary Severe (>70%) stenosis right extracranial internal carotid. Mild (<50%) stenosis left extracranial internal carotid. Patent and antegrade vertebrals bilaterally. Ordering Physician: Beth Sky Referring Physician: Candelario Santana Chi Performed By: Roman Fish, RVT Abdomen Ultrasound 07/04/25 14:13 IMPRESSION: Echogenic liver is nonspecific but may reflect hepatic steatosis vs medical hepatic disease. Mild intrahepatic biliary dilation and CBD dilation which may be related to prior cholecystectomy. Reading Location: [facility] Physical Exam Const alert and no apparent distress Constitutional Narrative: more alert and communicative today, able to answer qeustion General Appearance: cooperative Orientation / Consciousness: confused HEENT normocephalic, head/scalp atraumatic, moist oral mucous membranes and oropharynx normal Eyes PERRL and EOMs intact bilaterally Neck no lymphadenopathy, supple and no JVD Lymph Lymphatic: no lymphadenopathy noted and no lymphedema noted Resp normal respiratory effort, normal air movement and clear to auscultation bilaterally Cardio regular rate, regular rhythm, S1 normal heart sound, S2 normal heart sound and no murmurs GI normal to inspection, nondistended, normoactive bowel sounds, soft to palpation, non-tender and non-distended Extremity normal capillary refill, no clubbing, cyanosis or edema and no calf tenderness General Extremity: no tenderness to palpation of joints or extremities Skin General Skin Exam: no breakdown Neuro CN's II-XII intact bilaterally Neuro Narrative: ppat ieint weak but more alert and communicative today. Speech: speech abnormal Details: Positive for stuttering Motor Exam: general weakness Psych cooperative Psych Narrative: encephalopathic Mood & Affect: flat affect Assessment & Plan Assessment/Plan (1) UTI (urinary tract infection): (2) Frequent falls: (3) Stroke determined by clinical assessment: PLAN: Plan #Acute CVA * Patient was noted to have slurring of his speech overnight. CT of the brain showed no acute intracranial pathology. CT of the head and neck showed no hemodynamically significant stenosis. * MRI of the brain was done today which showed ischemia in the right thalamus which was reviewed to be acute versus subacute. * CTA head and neck showed high-grade stenosis at the origin of both internal carotid arteries * Patient on p.o. aspirin and high intensity statin. Consults vascular surgery on account of the findings of high-grade stenosis. * carotid ultrasound showed severe greater than 70% stenosis of the right extracranial internal carotid and mild less than 50% stenosis of the left extracranial internal carotid. Vascular surgery already consulted and recommend outpatient follow-up for patient to continue on aspirin and statin. * #Acute encephalopathy due to elevated ammonia * Patient does not have a known history of underlying liver disease. However she was noted to be very encephalopathic yesterday so ammonia level was checked and was elevated at 65. Trended up to 85. Patient was placed on lactulose. * Patient is much more alert and communicative and was eating breakfast this morning. Will continue lactulose and titrate until 2-3 loose stools daily. * Ammonia level today is 44. Liver enzymes are within normal limits. * #Debility and weakness with frequent falls and inability to ambulate * Patient lives with her son who is her primary caregiver. However patient has been getting weaker and falling at home. He therefore cannot currently take care of her. PT OT on board. Will benefit from long-term placement #UTI: On IV Rocephin. Urine cultures growing E. coli and Klebsiella pneumonia both of which are sensitive to ceftriaxone. #History of Parkinson disease: On levodopa carbidopa #History of A-fib: On metoprolol. Also on Eliquis. Will speak to son about continued use of Eliquis in light of patient's encephalopathy and history of frequent falls. #History of hypothyroidism: On Synthroid #DVT prophylaxis: Patient already anticoagulated CODE STATUS: Full code Disposition: Awaiting placement. Charges/Coding Visit Charges Inpatient E&M: 44409 Subs Hosp L2
--- NOTE | 2025-07-05 11:10 | CASEMGMT ---
Social Work SW called the son Stoney. JEWEL informed Stoney that his mother has been accepted at [facility] and the request for approval has been sent to the insurance company. REGI Rousseau
[2025-07-05 12:19] VITALS: BP 142/50; PULSE 58; RESP 15; O2SAT 100
[2025-07-05 17:46] VITALS: BMI 20.5
[2025-07-05 17:55] VITALS: BP 95/75; PULSE 68; RESP 17; TEMP 36.6; O2SAT 100
[2025-07-05 19:55] VITALS: BP 146/55; PULSE 68; RESP 14; TEMP 36.9; O2SAT 100
[2025-07-05 20:05] VITALS: BMI 20.5
[2025-07-05] MEDS: MELATONIN 3 MG TABLET PO (22:39)
[2025-07-05 22:55] VITALS: BP 155/62; PULSE 71; RESP 16; TEMP 36.6; O2SAT 100
[2025-07-06] VITALS (7 sets, daily range): BP systolic 102–135; BP diastolic 50–66; PULSE 54–64; RESP 14–16; TEMP 36.3–36.8; O2SAT 99–100; BMI 20.5
[2025-07-06 04:23] LABS: Hematocrit 30.8 % (37-47); Hemoglobin 11.1 g/dL (12.0-15.0); Immature Granulocytes Count 0.020 X10^3/uL (0.0-0.0); Mean Corp Hgb Conc 36.0 g/dL (32-36); Mean Corpuscular Volume 92.8 fL (81-99); Mean Platelet Vol. 9.4 fl (6.2-12.0); NRBC Flagged by Analyzer 0 % (0-5); Platelet Count 215 K/mm3 (150-450); RBC Distribution Width CV 13.2 % (11.6-14.6); RBC Distribution Width SD 43.4 fl (35.1-43.9); Red Blood Count 3.32 M/mm3 (4.2-5.4); White Blood Count 7.1 K/mm3 (4.4-11.0)
[2025-07-06 06:08] LABS: Anion Gap 9 (5-15); BUN 24 mg/dL (4-19); BUN/Creat Ratio 41.1 RATIO (10-20); Calcium,Total 9.7 mg/dL (7.6-11.0); Carbon Dioxide 20.8 mmol/L (21.0-32.0); Chloride 109 mmol/L (98-108); Estimated Creatinine Clearance 43.73 ml/min (50-250); Glucose 126 mg/dL (70-99); Potassium 3.7 mmol/L (3.3-5.1)
[2025-07-06 09:04] LABS: Ammonia 46.1 umol/L (11-51)
--- NOTE | 2025-07-06 09:17 | SP.MBSS_ITS ---
Modified Barium Swallow Patient Information Study Date: 07/06/25 Study Time: 13:00 Direct Billable Minutes: 100 Total Minutes procedure & reportin Diagnosis: Stroke I63.9 Referring Physician: Beth Sky Reason for Referral: Assess swallow function, assess risk for aspiration, and determine recommendations for least restrictive diet textures and compensatory strategies to improve swallowing safety. Medical History: The patient presented to the [facility] ED 07/03/2025 for evaluation for pain after a fall on Wednesday that was witnessed. Patient complained of right hip pain after her fall and was unable to ambulate. Patient has significant past medical history of osteoporosis, left hip replacement, hypothyroidism, Parkinson's disease, and dementia. Pt fell and may have hit her head, so CT head was done and was negative. X-rays of the hip and pelvis were also negative for any acute fracture. Pt admitted for [facility] placement in rehab and for treatment of acute UTI. During acute stay, a stroke work up was initiated due to speech being increasingly garbled and worsening facial droop. Brain MRI positive for acute vs. subacute ischemia in the R thalamus. BSE completed 07/03/2025 and recommended minced and moist textures / thin liquids w/ plan for MBSS to further assess risk for aspiration. Pt tolerated diet w/ no changes to respiratory status throughout the week; however, MBSS was unable to be completed until today due to fluctuating alertness. This VITAMIN MANAGER saw the patient at bedside 07/06/2025 just prior to this MBSS; however, and made the patient NPO due to two coughing episodes w/ limited thin water trials. Medical History (Updated 07/03/25 @ 00:[address] Rojas Elizalde MD) Cognitive dysfunction History of hemorrhoids Murmur, cardiac Hyperlipemia Hypothyroidism Diabetes mellitus, type 2 High total serum IgA Pre-syncope Tachycardia Elevated troponin Choledocholithiasis Rheumatoid arthritis Kidney stones Asthma Irregular heart beat Migraines Parkinson's disease Wears glasses Arthritis Restless legs Syncope Dietary restriction Non-smoker Leg cramps Chronic anemia Hypertension Current Diet Ordered: NPO Dentition: Natural Teeth and Missing Teeth Mental Status: Impaired Respiratory Status: Oxygenating on Room Air Penetration-Aspiration Scale Penetration-Aspiration Scale: OBJECTIVE ASSESSMENT OF SWALLOW FUNCTION (QUANTITATIVE – PER TRIAL): PENETRATION / ASPIRATION SCALE (SENA): 1 = does not enter airway 2 = enters airway/above vocal folds/ejected 3 = enters airway/above vocal folds/not ejected 4 = enters airway/contacts vocal folds/ejected 5 = enters airway/contacts vocal folds/not ejected 6 = enters airway/below vocal folds/ejected 7 = enters airway/below vocal folds/not ejected despite effort 8 = enters airway/below vocal folds/no effort VIDEOFLOROSCOPIC SCALE SCORE (SENA): Grade I = aspiration of material that has penetrated into the laryngeal vestibule, intact cough reflex Grade II = aspiration < 10 % of the bolus, intact cough reflex Grade III = aspiration of < 10 % of the bolus, reduced cough reflex or aspiration of > 10 % of the bolus, intact cough reflex Grade IV = aspiration of > 10 % of the bolus, reduced cough reflex Penetration-Aspiration Scale Score Thin Liquid via teaspoon: Result: 5= enters airways/contacts vocal folds/not ejected Thin Liquid via teaspoon Trial 2: Result: 5= enters airways/contacts vocal folds/not ejected Comment: Cued cough intermittently throughout this MBSS to attempt clearing residuals to aid in PAS scoring of subsequent trials. Cued cough was somewhat effective in expelling residues in the laryngeal vestibule. Thin Liquid via single sip: straw: Result: 8= enters airway/below vocal folds/no effort [place] Thick Liquid via teaspoon: Result: 2= enter airway/above vocal folds/ejected [place] Thick Liquid via teaspoon Trial 2: Result: 2= enter airway/above vocal folds/ejected [place] Thick Liquid via large single sip: cup: Result: 5= enters airways/contacts vocal folds/not ejected [place] Thick Liquid via large single sip: cup Trial 2: Result: 5= enters airways/contacts vocal folds/not ejected [place] Thick Liquid via single sip: straw: Result: 3= enters airways/above vocal folds/not ejected Comment: SILENT post prandial aspiration of residues of previous trials Pudding via teaspoon: Result: 1= does not enter airway Comment: Esophageal screen - Moderate retention in the upper esophagus. [place] Thick Liquid via teaspoon Trial 3: Result: 1= does not enter airway Comment: Esophageal screen - Somewhat effective in clearing pudding residues, but continued retention in the upper and lower esophagus. [place] Thick Liquid via small single sip: cup: Result: 1= does not enter airway [place] Thick Liquid via large single sip: cup: Result: 3= enters airways/above vocal folds/not ejected Comment: Esophageal screen - Mild retention in the upper esophagus. Thin Liquid via teaspoon Chin tuck: Result: 1= does not enter airway Thin Liquid via large single sip: cup Chin tuck: Result: 2= enter airway/above vocal folds/ejected Oral Phase Labial Seal: Escape beyond interlabial space; no extension beyond zhou border Tongue Control During Bolus Hold: Posterior escape of greater than half of bolus Bolus Transport/Lingual Motion: Repetitive/disorganized tongue motion Oral Residue: Residue collection on oral structures Pharyngeal Phase Initiation of Pharyngeal Swallow: Bolus head in pyriforms Soft Palate Elevation: Trace column of contrast/air between soft palate and pharyngeal wall Laryngeal Elevation: Partial superior movement thyroid cart/partial apprx aryt- epig petiole Anterior Hyoid Excursion: Partial anterior movement Epiglottic Movement: Partial inversion Laryngeal Vestibule Closure at Height of Swallow: Incomplete; narrow column of air/contrast in laryngeal vestibule Pharyngeal Stripping Wave: Present - diminished Pharyngoesophageal Segment Opening: Parital distension and partial duration; parital obstruction of flow Tongue Base Retraction: Narrow column of contrast between tongue base & post. pharyngeal wall Pharyngeal Residue: Collection of residue within or on pharyngeal structures Esophageal Phase Esophageal Clearance: Esophageal retention Treatment Strategies Effects of treatment strategies attemped:: Cued cough = Somewhat effective Alternating bites/sips = Somewhat effective chin tuck = Effective Diagnosis/Impression Diagnosis: Moderate oropharyngeal dysphagia R13.12 MBS Impressions: The oral phase is primarily marked by... -Decreased bolus control w/ premature posterior loss of >1/2 of some large sips of liquids to the pharynx prior to swallow onset. -Oral holding and lingual pumping w/ A-P transport. -Did not assess mastication during MBSS w/ regular textured cookie as pt has tolerated minced and moist textures throughout the week and VITAMIN MANAGER wanting to keep pt's time under fluoroscopy down as pt has very prolonged mastication. Recommend continuing minced and moist textures. The pharyngeal phase is primarily marked by... -Delayed swallow onset. -Decreased pharyngeal motility due to decreased TB retraction and pharyngeal stripping wave. -Decreased airway closure during the swallow due to decreased anterior hyoid exc ursion and laryngeal elevation. Silent aspiration of thin liquids via straw. Silent post prandial aspiration of mildly thick liquids via cup. Chin tuck was most effective in decreasing risk for aspiration. The esophageal phase is primarily marked by... -Moderate retention in the upper esophagus w/ pudding, which somewhat cleared w/ mildly thick liquids by tsp. Following two moderately thick liquid trials, majority of bolus had cleared through the LES w/ only mild retention in the upper esophagus. Recommendations Diet: Minced and Moist Textures and Thin Liquids Compensatory Strategies: Small Sips, No Straws, Slow Rate, Chin Tuck (ALL SIPS), Alternate bites/solids and sips/liquids (1:1 RATIO), Sitting upright (During and 30-60min after po intake) and Assist with verbal cues to use recommended strategies Supervision: Assist as needed (Feeding assistance as needed) and 1:1 Direct Supervision Recommend Repeat Modified Barium Swallow: TBD Need for Skilled Speech Therapy Services: Yes Comment: -Train the patient in use of strategies to decrease risk for aspiration. -Ongoing assessment of diet tolerance of recommended textures. Monitor respiratory status closely. If poor diet tolerance, consider diet downgrade of liquids to mildly thick liquids by tsp. -Train the patient in a thorough oral care routine. -Train the patient in oropharyngeal exercise program (lingual coordination and strengthening, Ana, Effortful, CTAR). Recommended Referrals: GI Consult Education Completed: 1. Described result of evaluation., 2. Pt understands evaluation & agrees with goals and treatment plan. and 7. Pt requires further education on strategies & risks. Status Active ST Patient: Active Contact Information [facility] Speech Therapy:: Deb Velasquez M.A. [facility]-VITAMIN MANAGER Speech-Language Pathologist [facility] [address] [place] [address] [email or web address] [phone]
[2025-07-06] MEDS: Arthritis Pain Compound 60 CLICK TUBE TOPICAL ×2 (12:10→23:19)
--- NOTE | 2025-07-06 13:10 | CASEMGMT ---
Social Work Patient should be medically ready Wednesday. She is accepted and approved to DC to TCU. green sheet in the chart. REGI Rousseau
--- NOTE | 2025-07-06 13:44 | CASEMGMT ---
Social Work SW called the son Stoney and informed him that his mother should DC Wednesday to [facility]. REGI Rousseau
--- NOTE | 2025-07-06 14:21 | PN_ITS ---
Subjective Subjective Patient seen and examined. She was drowsy but arousable to voice today. She had no active complaint and is remained hemodynamically stable. She is on room air. unable to do comprehensive review of systems due to her lethargy. Objective Data Objective Data Vital Signs: Vital Signs Temp Pulse Resp BP Pulse Ox O2 Del Method 97.4 F L 58 L 16 102/50 L 100 Room Air 07/06/25 14:14 07/06/25 14:14 07/06/25 14:14 07/06/25 14:14 07/06/25 14:14 07/06/25 14:14 Oxygen Delivery Method Room Air Weight: 108 lb 14.534 oz Body Mass Index (BMI) 20.5 Intake & Output: Intake and Output for Last 24 Hours 07/04/25 07/05/25 07/06/25 23:59 23:59 23:59 Intake Total 450 / 450 240 / 240 Output Total 200 / 200 Balance -200 / -200 450 / 450 240 / 240 Medical Nutrition Assessment Dietitian: Malnutrition Criteria Met Start: 07/03/25 17:56 Freq: Status: Active Protocol: Document 07/03/25 17:56 RMA (Rec: 07/03/25 17:56 RMA [id number]) Nutrition Malnutrition Evidence of Yes Malnutrition Exists Malnutrition (severe Chronic ): Evidenced By Suboptimal Energy Intake (Severe),Weight Loss (Severe) Clinical Problem Chronic Disease or Condition Related Malnutrition Etiology severe protein-calorie malnutrition in the context of chronic disease and debility related to inadequate energy/oral intake and difficulty swallowing Signs/Symptoms as evidenced by ~20% unintentional weight loss x less than 6 months, BMI 20.6, PO meeting less than 50% estimated nutrition needs and need for mechanically altered food Status Active Problem Recommendation Dietitian Will liberalize therapeutic diet to regular with Recommendations/ consistency/texture as per CLIENT SERVICE PROFESSIONAL. Changes Will add 120 mL Ensure Plus HP with meals as tolerated. Will add fortified pudding with lunch and dinner tray. May need to consider enteral nutrition support if PO established inadequate and weight continues to decline. Lab / Micro Data 07/06/25 04:08 07/06/25 04:08 Labs: Laboratory Results - last 24 hr 07/06/25 04:08: WBC 7.1, RBC 3.32 L, Hgb 11.1 L, Hct 30.8 L, MCV 92.8, MCH 33.4 H, MCHC 36.0, RDW Std Deviation 43.4, RDW Coeff of Cody 13.2, Plt Count 215, MPV 9.4, Immature Gran % (Auto) 0.300, Neut % (Auto) 44.6 L, Lymph % (Auto) 42.2 H, [place] % (Auto) 8.3, Eos % (Auto) 3.9, Baso % (Auto) 0.7, Absolute Neuts (auto) 3.2, Absolute Lymphs (auto) 2.99, Nucleated RBC % 0, Sodium 138, Potassium 3.7, Chloride 109 H, Carbon Dioxide 20.8 L, Anion Gap 9, BUN 24 H, Creatinine 0.59 L, Estim Creat Clear Calc 43.73 L, Est GFR (MDRD) Non-Af 92, BUN/Creatinine Ratio 41.1 H, Glucose 126 H, Calcium 9.7, Ammonia 46.1 Micro: Microbiology 07/02/25 23:05 Urine, Catheterized Urine Culture - Final Escherichia coli Klebsiella pneumoniae sp pneum Physical Exam Const alert Constitutional Narrative: frail, lethargic but arousable to voice. General Appearance: cooperative Orientation / Consciousness: confused HEENT normocephalic, head/scalp atraumatic, moist oral mucous membranes and oropharynx normal Eyes EOMs intact bilaterally Neck supple and no JVD Lymph Lymphatic: no lymphedema noted Resp Resp Narrative: moderately diminished breath sounds bibasally, no wheezes or crackles. On room air. Cardio regular rate, regular rhythm, S1 normal heart sound, S2 normal heart sound and no murmurs GI normal to inspection, nondistended, normoactive bowel sounds, soft to palpation, non-tender and non-distended Extremity normal capillary refill, no clubbing, cyanosis or edema and no calf tenderness General Extremity: no tenderness to palpation of joints or extremities Skin General Skin Exam: no breakdown Neuro Neuro Narrative: patient still weak and frail. Motor Exam: general weakness Assessment & Plan Assessment/Plan (1) UTI (urinary tract infection): (2) Frequent falls: (3) Stroke determined by clinical assessment: PLAN: Plan #Acute CVA * Patient was noted to have slurring of his speech overnight. CT of the brain showed no acute intracranial pathology. CT of the head and neck showed no hemodynamically significant stenosis. * MRI of the brain was done today which showed ischemia in the right thalamus which was reviewed to be acute versus subacute. * CTA head and neck showed high-grade stenosis at the origin of both internal carotid arteries * Patient on p.o. aspirin and high intensity statin. Consults vascular surgery on account of the findings of high-grade stenosis. * carotid ultrasound showed severe greater than 70% stenosis of the right extracranial internal carotid and mild less than 50% stenosis of the left extracranial internal carotid. Vascular surgery already consulted and recommend outpatient follow-up for patient to continue on aspirin and statin. * #Acute encephalopathy due to elevated ammonia * Patient does not have a known history of underlying liver disease. However she was noted to be very encephalopathic yesterday so ammonia level was checked and was elevated at 65. Trended up to 85. Patient was placed on lactulose. * Patient is much more alert and communicative and was eating breakfast this morning. Will continue lactulose and titrate until 2-3 loose stools daily. * Ammonia level today is 46. Liver enzymes are within normal limits. * #Debility and weakness with frequent falls and inability to ambulate * Patient lives with her son who is her primary caregiver. However patient has been getting weaker and falling at home. He therefore cannot currently take care of her. PT OT on board. Will benefit from long-term placement #UTI: On IV Rocephin. Urine cultures growing E. coli and Klebsiella pneumonia both of which are sensitive to ceftriaxone. #History of Parkinson disease: On levodopa carbidopa #History of A-fib: * On metoprolol. not on any blood thinner. * Will speak to son about continued use of Eliquis in light of patient's encephalopathy and history of frequent falls. Tried calling her son Stoney Landry ([phone]) and Roman Landry ([phone]) to discuss patient being on anticoagulants. Voicemail left for Roman Landry; no voicemail available for Stoney Landry. * Roman Landry called back and I explained to him that the risks vs benefits of her being on a blood thinner for afib. Son opts for her to be off blood thinners now. #History of hypothyroidism: On Synthroid #DVT prophylaxis: SCDs. CODE STATUS: Full code Disposition: Awaiting placement. Charges/Coding Visit Charges Inpatient E&M: 60034 Subs Hosp L2
[2025-07-06] MEDS: MELATONIN 3 MG TABLET PO (23:20)
[2025-07-06] MEDS: 0.9% Saline Lock 10 ML Syringe IV (23:20)
[2025-07-07] VITALS (7 sets, daily range): BP systolic 102–121; BP diastolic 43–53; PULSE 51–64; RESP 16–18; TEMP 36.4–36.8; O2SAT 93–99; BMI 20.5
[2025-07-07 06:05] LABS: Hematocrit 28.8 % (37-47); Hemoglobin 10.1 g/dL (12.0-15.0); Immature Granulocytes Count 0.020 X10^3/uL (0.0-0.0); Mean Corp Hgb Conc 35.1 g/dL (32-36); Mean Corpuscular Volume 92.0 fL (81-99); Mean Platelet Vol. 9.7 fl (6.2-12.0); NRBC Flagged by Analyzer 0 % (0-5); Platelet Count 208 K/mm3 (150-450); RBC Distribution Width CV 13.4 % (11.6-14.6); RBC Distribution Width SD 44.1 fl (35.1-43.9); Red Blood Count 3.13 M/mm3 (4.2-5.4); White Blood Count 5.0 K/mm3 (4.4-11.0)
[2025-07-07 07:16] LABS: Anion Gap 8 (5-15); BUN 23 mg/dL (4-19); BUN/Creat Ratio 37.8 RATIO (10-20); Calcium,Total 9.3 mg/dL (7.6-11.0); Carbon Dioxide 20.6 mmol/L (21.0-32.0); Chloride 109 mmol/L (98-108); Estimated Creatinine Clearance 43.73 ml/min (50-250); Glucose 140 mg/dL (70-99); Potassium 3.5 mmol/L (3.3-5.1)
[2025-07-07] MEDS: Arthritis Pain Compound 60 CLICK TUBE TOPICAL ×2 (09:28→21:15)
--- NOTE | 2025-07-07 10:03 | PN_ITS ---
Subjective Subjective Patient seen and examined. She was alert and sitting in her chair. She had no active complaints. Review of systems is otherwise negative. Objective Data Objective Data Vital Signs: Vital Signs Temp Pulse Resp BP Pulse Ox O2 Del Method 97.8 F 64 18 102/53 L 97 Room Air 07/07/25 09:39 07/07/25 09:39 07/07/25 09:39 07/07/25 09:39 07/07/25 09:39 07/07/25 09:44 Oxygen Delivery Method Room Air Weight: 108 lb 14.534 oz Body Mass Index (BMI) 20.5 Intake & Output: Intake and Output for Last 24 Hours 07/05/25 07/06/25 07/07/25 23:59 23:59 23:59 Intake Total 450 / 450 240 / 240 Balance 450 / 450 240 / 240 Medical Nutrition Assessment Dietitian: Malnutrition Criteria Met Start: 07/03/25 17:56 Freq: Status: Active Protocol: Document 07/03/25 17:56 RMA (Rec: 07/03/25 17:56 RMA [id number]) Nutrition Malnutrition Evidence of Yes Malnutrition Exists Malnutrition (severe Chronic ): Evidenced By Suboptimal Energy Intake (Severe),Weight Loss (Severe) Clinical Problem Chronic Disease or Condition Related Malnutrition Etiology severe protein-calorie malnutrition in the context of chronic disease and debility related to inadequate energy/oral intake and difficulty swallowing Signs/Symptoms as evidenced by ~20% unintentional weight loss x less than 6 months, BMI 20.6, PO meeting less than 50% estimated nutrition needs and need for mechanically altered food Status Active Problem Recommendation Dietitian Will liberalize therapeutic diet to regular with Recommendations/ consistency/texture as per SCHOOL AIDE. Changes Will add 120 mL Ensure Plus HP with meals as tolerated. Will add fortified pudding with lunch and dinner tray. May need to consider enteral nutrition support if PO established inadequate and weight continues to decline. Lab / Micro Data 07/07/25 05:19 07/07/25 05:19 Labs: Laboratory Results - last 24 hr 07/07/25 05:19: WBC 5.0, RBC 3.13 L, Hgb 10.1 L, Hct 28.8 L, MCV 92.0, MCH 32.3 H, MCHC 35.1, RDW Std Deviation 44.1 H, RDW Coeff of [place] 13.4, Plt Count 208, MPV 9.7, Immature Gran % (Auto) 0.400, Neut % (Auto) 38.3 L, Lymph % (Auto) 44.8 H, [place] % (Auto) 9.9, Eos % (Auto) 5.4 H, Baso % (Auto) 1.2 H, Absolute Neuts (auto) 1.9 L, Absolute Lymphs (auto) 2.22, Nucleated RBC % 0, Sodium 138, Potassium 3.5, Chloride 109 H, Carbon Dioxide 20.6 L, Anion Gap 8, BUN 23 H, C reatinine 0.61 L, Estim Creat Clear Calc 43.73 L, Est GFR (MDRD) Non-Af 92, B UN/Creatinine Ratio 37.8 H, Glucose 140 H, Calcium 9.3 Micro: Microbiology 07/02/25 23:05 Urine, Catheterized Urine Culture - Final Escherichia coli Klebsiella pneumoniae sp pneum Physical Exam Const alert and no apparent distress Constitutional Narrative: flat affect General Appearance: cooperative Orientation / Consciousness: confused HEENT normocephalic, head/scalp atraumatic, moist oral mucous membranes and oropharynx normal Eyes EOMs intact bilaterally Neck supple and no JVD Lymph Lymphatic: no lymphedema noted Resp Resp Narrative: moderately diminished breath sounds bibasally, no wheezes or crackles. On room air. Cardio regular rate, regular rhythm, S1 normal heart sound, S2 normal heart sound and no murmurs GI normal to inspection, nondistended, normoactive bowel sounds, soft to palpation, non-tender and non-distended Extremity normal capillary refill, no clubbing, cyanosis or edema and no calf tenderness General Extremity: no tenderness to palpation of joints or extremities Skin General Skin Exam: no breakdown Neuro CN's II-XII intact bilaterally Neuro Narrative: patient still weak and frail. Motor Exam: general weakness Psych cooperative Psych Narrative: encephalopathic Mood & Affect: flat affect Assessment & Plan Assessment/Plan (1) UTI (urinary tract infection): (2) Frequent falls: (3) Stroke determined by clinical assessment: PLAN: Plan #Acute CVA * Patient was noted to have slurring of his speech overnight. CT of the brain showed no acute intracranial pathology. CT of the head and neck showed no hemodynamically significant stenosis. * MRI of the brain was done today which showed ischemia in the right thalamus which was reviewed to be acute versus subacute. * CTA head and neck showed high-grade stenosis at the origin of both internal carotid arteries * Patient on p.o. aspirin and high intensity statin. * carotid ultrasound showed severe greater than 70% stenosis of the right extracranial internal carotid and mild less than 50% stenosis of the left extracranial internal carotid. Vascular surgery already consulted and recommend outpatient follow-up for patient to continue on aspirin and statin. * #Acute encephalopathy due to elevated ammonia * Patient does not have a known history of underlying liver disease. However she was noted to be very encephalopathic yesterday so ammonia level was checked and was elevated at 65. Trended up to 85. Patient was placed on lactulose. * Patient is much more alert and communicative and was eating breakfast this morning. Will continue lactulose and titrate until 2-3 loose stools daily. * liver enzymes WNL * #Debility and weakness with frequent falls and inability to ambulate * Patient lives with her son who is her primary caregiver. However patient has been getting weaker and falling at home. He therefore cannot currently take care of her. PT OT on board. Will benefit from long-term placement #UTI: On IV Rocephin. Urine cultures growing E. coli and Klebsiella pneumonia both of which are sensitive to ceftriaxone. Patient switched to PO cefdinir #History of Parkinson disease: On levodopa carbidopa #History of A-fib: On metoprolol. Also on Eliquis. Will speak to son about continued use of Eliquis in light of patient's encephalopathy and history of frequent falls. #History of hypothyroidism: On Synthroid #DVT prophylaxis: Patient already anticoagulated CODE STATUS: Full code Disposition: Awaiting placement. Charges/Coding Visit Charges Inpatient E&M: 42758 Subs Hosp L2
[2025-07-07] MEDS: 0.9% Saline Lock 10 ML Syringe IV (21:16)
[2025-07-07] MEDS: MELATONIN 3 MG TABLET PO (23:09)
[2025-07-08 03:48] VITALS: BP 108/56; PULSE 57; RESP 16; TEMP 36.4; O2SAT 100
[2025-07-08 05:57] LABS: Hematocrit 29.1 % (37-47); Hemoglobin 10.1 g/dL (12.0-15.0); Immature Granulocytes Count 0.020 X10^3/uL (0.0-0.0); Mean Corp Hgb Conc 34.7 g/dL (32-36); Mean Corpuscular Volume 92.7 fL (81-99); Mean Platelet Vol. 9.3 fl (6.2-12.0); NRBC Flagged by Analyzer 0 % (0-5); Platelet Count 188 K/mm3 (150-450); RBC Distribution Width CV 13.5 % (11.6-14.6); RBC Distribution Width SD 45.1 fl (35.1-43.9); Red Blood Count 3.14 M/mm3 (4.2-5.4); White Blood Count 6.5 K/mm3 (4.4-11.0)
[2025-07-08 06:32] LABS: Anion Gap 7 (5-15); BUN 23 mg/dL (4-19); BUN/Creat Ratio 43.8 RATIO (10-20); Calcium,Total 9.3 mg/dL (7.6-11.0); Carbon Dioxide 20.4 mmol/L (21.0-32.0); Chloride 108 mmol/L (98-108); Estimated Creatinine Clearance 43.73 ml/min (50-250); Glucose 111 mg/dL (70-99); Potassium 3.6 mmol/L (3.3-5.1)
[2025-07-08 07:31] VITALS: PULSE 64
[2025-07-08 07:32] VITALS: BMI 20.5
[2025-07-08 07:40] VITALS: O2SAT 98
[2025-07-08 07:49] VITALS: BP 107/48; PULSE 60; RESP 16; TEMP 36.7; O2SAT 100
[2025-07-08] MEDS: Arthritis Pain Compound 60 CLICK TUBE TOPICAL (07:57)
--- NOTE | 2025-07-08 11:58 | TREXTCAR_ITS ---
Diet Diet Order/Speech Therapy: INPATIENT Hospital Diet / Speech Therapy Order(s) 07/06/25 10:15 Diet: Regular - General Food consistency:: Mechanical (Minced/Moist) Liquid Consistency:: Regular/Thin Type of Dietary Supplement:: Ensure Plus High Protein Diet Comments: 120mL ensure plus HP all meals; fortified pudding with lunch and dinner Speech Therapy Comments: No straws, CHIN TUCK ALL SIPS, Direct staff sup, feeding assist Routine Orders/Code Status Enema Type: Fleetz Enema Frequency: Daily PRN Suppository Type: Dulcolax 10mg Suppository Frequency: Daily PRN DC O2, CPAP, BIPAP needs Home O2 Discharge instructions: No Wound(s) L posterior thigh: Wound Type: pinched by BSC Therapies Weight Bearing: Weight bearing as tolerated Physical Therapy: Eval and Treat Occupational Therapy: Eval and Treat Problem/Diagnosis (1) UTI (urinary tract infection): Status: Acute Code(s): N39.0 - Urinary tract infection, site not specified (2) Frequent falls: Status: Acute Code(s): R29.6 - Repeated falls (3) Stroke determined by clinical assessment: Status: Acute Code(s): I63.9 - Cerebral infarction, unspecified Plan #Acute CVA * Patient was noted to have slurring of his speech overnight. CT of the brain showed no acute intracranial pathology. CT of the head and neck showed no hemodynamically significant stenosis. * MRI of the brain was done today which showed ischemia in the right thalamus which was reviewed to be acute versus subacute. * CTA head and neck showed high-grade stenosis at the origin of both internal carotid arteries * Patient on p.o. aspirin and high intensity statin. * carotid ultrasound showed severe greater than 70% stenosis of the right extracranial internal carotid and mild less than 50% stenosis of the left extracranial internal carotid. Vascular surgery already consulted and recommend outpatient follow-up for patient to continue on aspirin and statin. * #Acute encephalopathy due to elevated ammonia * Patient does not have a known history of underlying liver disease. However she was noted to be very encephalopathic yesterday so ammonia level was checked and was elevated at 65. Trended up to 85. Patient was placed on lactulose. * Patient is much more alert and communicative and was eating breakfast this morning. Will continue lactulose and titrate until 2-3 loose stools daily. * liver enzymes WNL * #Debility and weakness with frequent falls and inability to ambulate * Patient lives with her son who is her primary caregiver. However patient has been getting weaker and falling at home. He therefore cannot currently take care of her. PT OT on board. Will benefit from long-term placement #UTI: On IV Rocephin. Urine cultures growing E. coli and Klebsiella pneumonia both of which are sensitive to ceftriaxone. Patient switched to PO cefdinir #History of Parkinson disease: On levodopa carbidopa #History of A-fib: On metoprolol. Also on Eliquis. Will speak to son about continued use of Eliquis in light of patient's encephalopathy and history of frequent falls. #History of hypothyroidism: On Synthroid #DVT prophylaxis: Patient already anticoagulated CODE STATUS: Full code Disposition: Awaiting placement. Allergies/Procedures Done in Hospital Allergies Penicillins Allergy (Intermediate, Verified 07/02/25 21:09) Hives Procedures: 2-D Echocardiogram Type of Care/Length of Stay Estimated LOS: Convalescent Care Less Than 30 days Type of Care Needed: Skilled Rehab Potential: Fair Prognosis: Fair Additional Orders/Day of Discharge Day of Discharge: 07/08/25 Dietary and Speech Recommendations Dietitian Recommendations/Changes: Will liberalize therapeutic diet to regular with consistency/texture as per MICRO PALEONTOLOGIST. Will add 120 mL Ensure Plus HP with meals as tolerated. Will add fortified pudding with lunch and dinner tray. May need to consider enteral nutrition support if PO established inadequate and weight continues to decline. Discharge Plan Admission Admit Date/Time: 07/03/25 00:27 Primary Reason for Your Visit: acute CVA, UTI Attending Provider: Beth Syk Primary Care Provider: Candelario Santana Chi Consulting Providers: Rojas Elizalde; Baldev Kaba Instructions Patient Instructions: AFib Preventing Stroke, ED Urinary Tract Infections in Men, Booklet - Understanding Stroke Discharge Orders/Prescriptions Prescriptions: New cefdinir 300 mg Capsule 300 mg PO Q12 Qty: 5 0RF aspirin 81 mg tablet 81 mg PO DAILY Qty: 30 2RF atorvastatin [Lipitor] 40 mg tablet 40 mg PO DAILY Qty: 30 2RF lactulose 10 gram/15 mL solution 30 ml PO TID Qty: 3000 1RF Rx Instructions: titrate until 2-3 loose stools daily Continued melatonin 3 mg tablet 3 mg PO QHS multivitamin Tablet 1 tab PO QAM carbidopa-levodopa 25-100 mg tablet 1 tab PO TID acetaminophen 500 mg Tablet 1,000 mg PO Q8 Qty: 0 0RF ergocalciferol (vitamin D2) [Vitamin D2] 1,250 mcg (50,000 unit) Capsule 1,250 mcg PO Q7D Qty: 0 0RF levothyroxine 25 mcg Tablet 25 mcg PO DAILY@0600 Qty: 1 0RF calcium carbonate 200 mg calcium (500 mg) Tablet,Chewable 500 mg PO TIDCM Qty: 1 0RF diclofenac sodium [Voltaren Arthritis Pain] 1 % gel 2 g topical BID Qty: 100 0RF Rx Instructions: apply BID to both knees Referrals / Follow Up: Baldev Kaba MD [Med Staff - Active Staff, Vascular Surgery] - Within 1 Week Candelario Santana Chi, MD [Primary Care Provider, Geriatrics] - Within 1 Week Disposition Disposition (needs filled in before D/C Order can be placed): Home, Self Care
--- NOTE | 2025-07-08 12:00 | DS.PCM_ITS ---
Providers Date of Admission: 07/03/25 Date of Discharge: 07/25/25 Primary Care Physician: Dr. Candelario Santana MD Consultations 07/03/25 10:24 Consult: Tele-Neurology Routine Consulting Provider: [facility] Reason for Consult: acute cva EMERGENT Consult: No Notified: Yes Date Notified: 07/03/25 Time Notified: 10:24 Method of Notification: [facility] Service Nursing Unit Staff Notify [facility] of Tele-Neurology Consult: Yes 07/03/25 16:18 Consult: Vascular Surgery Routine Consulting Provider: Baldev Kaba Reason for Consult: bilateral carotid stenosis EMERGENT Consult: No Notified: Yes Date Notified: 07/03/25 Time Notified: 16:18 Method of Notification: Text Reason For Visit: FREQUENT FALLS, INABILITY TO AMBULATE Diagnosis Discharge Diagnosis (1) UTI (urinary tract infection): Status: Acute Code(s): N39.0 - Urinary tract infection, site not specified (2) Frequent falls: Status: Acute Code(s): R29.6 - Repeated falls (3) Stroke determined by clinical assessment: Status: Acute Code(s): I63.9 - Cerebral infarction, unspecified Plan #Acute CVA * Patient was noted to have slurring of his speech overnight. CT of the brain showed no acute intracranial pathology. CT of the head and neck showed no hemodynamically significant stenosis. * MRI of the brain was done today which showed ischemia in the right thalamus which was reviewed to be acute versus subacute. * CTA head and neck showed high-grade stenosis at the origin of both internal carotid arteries * Patient on p.o. aspirin and high intensity statin. * carotid ultrasound showed severe greater than 70% stenosis of the right extracranial internal carotid and mild less than 50% stenosis of the left extracranial internal carotid. Vascular surgery already consulted and recommend outpatient follow-up for patient to continue on aspirin and statin. * #Acute encephalopathy due to elevated ammonia * Patient does not have a known history of underlying liver disease. However she was noted to be very encephalopathic yesterday so ammonia level was checked and was elevated at 65. Trended up to 85. Patient was placed on lactulose. * Patient is much more alert and communicative and was eating breakfast this morning. Will continue lactulose and titrate until 2-3 loose stools daily. * liver enzymes WNL * #Debility and weakness with frequent falls and inability to ambulate * Patient lives with her son who is her primary caregiver. However patient has been getting weaker and falling at home. He therefore cannot currently take care of her. PT OT on board. Will benefit from long-term placement #UTI: On IV Rocephin. Urine cultures growing E. coli and Klebsiella pneumonia both of which are sensitive to ceftriaxone. Patient switched to PO cefdinir #History of Parkinson disease: On levodopa carbidopa #History of A-fib: On metoprolol. Also on Eliquis. Will speak to son about continued use of Eliquis in light of patient's encephalopathy and history of frequent falls. #History of hypothyroidism: On Synthroid #DVT prophylaxis: Patient already anticoagulated CODE STATUS: Full code Disposition: Awaiting placement. Medications at Discharge Home Medications carbidopa 25 mg-levodopa 100 mg tablet 1 tab PO TID parkinson 02/15/25 acetaminophen 500 mg tablet 1,000 mg (2 x 500 mg) PO Q8 pain #0 tabs 02/21/25 ergocalciferol (vitamin D2) 1,250 mcg (50,000 unit) capsule (Vitamin D2) 1,250 mcg PO Q7D supplement #0 caps 02/21/25 calcium carbonate 500 mg (2.5 x 200 mg calcium (500 mg)) PO TIDCM supplement #1 TAB 03/08/25 diclofenac sodium 1 % topical gel (Voltaren Arthritis Pain) 2 g topical BID pain #100 grams 03/08/25 levothyroxine 25 mcg tablet 25 mcg PO DAILY@0600 thyroid #1 TAB 03/08/25 melatonin 3 mg tablet 3 mg PO QHS sleep 04/11/25 multivitamin 1 tab PO QAM supplement 04/11/25 aspirin 81 mg tablet 81 mg PO DAILY cardiac health #30 tabs 07/08/25 atorvastatin 40 mg tablet (Lipitor) 40 mg PO DAILY cardiac health #30 tabs 07/08/25 cefdinir 300 mg capsule 300 mg PO Q12 infection #5 caps 07/08/25 lactulose 10 gram/15 mL oral solution 30 ml PO TID high amonia #3,000 mL 07/08/25 Hospital Course Operations None Procedures None Summary of Care Provided Minutes Spent on Discharge: 45 Hospital Course: Patient is a 80-year-old female with past medical history as outlined was admitted through the ED on 07/03/2025 with a complaint of mechanical fall with resultant right hip pain and inability to ambulate. She was anticoagulated on Eliquis. She lives with her son who took care of her. However he had not been able to carry around the house for her activities of daily living and son was concerned that she may need long-term care. Son is also concerned that she may have a UTI. Urinalysis does show 3+ bacteria. CT of the brain was negative for any intracranial hemorrhage and imaging done of the pelvis and hip showed no evidence of acute fracture. She was admitted to be managed for debility and weakness due to mechanical fall and UTI. Patient noted to have slurring of his speech on the night of admission. CT of the head and neck showed bilateral high-grade stenosis at the origin of both internal carotid arteries. She was placed on p.o. aspirin and high intensity statin. Vascular surgery was consulted. Carotid ultrasound was obtained which showed more than 70% stenosis of the right extracranial internal carotid and mild less than 50% stenosis of the left extracranial internal carotid. Vascular surgery recommended patient continuing on aspirin and high intensity statin and follow-up with them on outpatient basis. MRI done showed ischemia in the right thalamus which was thought to be acute versus subacute. She was therefore managed for acute versus subacute CVA. Neurology reviewed patient and did not think that she would be anticoagulated in light of a history of mechanical falls even though she had A- fib. This hospitalist had extensive discussion with patient's son about the risk versus the benefits of her being on anticoagulation with the risk of intracranial bleed if she fell versus being off of anticoagulation and the risk of stroke. Son eventually decided that he had wanted his mother of the anticoagulation. Urine cultures grew E. coli and Klebsiella which were both pansensitive. She was therefore switched to p.o. cefdinir. She was discharged to [facility] unit on 07/08/2025. Patient seen and examined prior to discharge. She was sitting comfortably in her chair and had no complaints. She had an uneventful night and review of systems otherwise negative. Labs and vitals reviewed. Home medication reviewed and reconciled. She was discharged on p.o. aspirin and high intensity statin and also discharged on p.o. cefdinir to complete a 5-day course. Physical Exam Const alert and no apparent distress Constitutional Narrative: flat affect General Appearance: cooperative and comfortable Orientation / Consciousness: awake HEENT normocephalic, head/scalp atraumatic, hearing grossly normal bilaterally, moist oral mucous membranes and oropharynx normal Mouth: oral and palatal mucosa normal Eyes PERRL and EOMs intact bilaterally Neck no lymphadenopathy, supple and no JVD Lymph Lymphatic: no lymphadenopathy noted and no lymphedema noted Resp normal respiratory effort, normal air movement and clear to auscultation bilaterally Cardio regular rate, regular rhythm, S1 normal heart sound, S2 normal heart sound and no murmurs GI normal to inspection, nondistended, normoactive bowel sounds, soft to palpation, non-tender and non-distended Extremity normal capillary refill, no clubbing, cyanosis or edema and no calf tenderness General Extremity: no tenderness to palpation of joints or extremities Skin no rashes or lesions noted General Skin Exam: no breakdown Neuro CN's II-XII intact bilaterally and moves all extremities Neuro Narrative: patient still weak and frail. Sensorium / Orientation: awake and alert Motor Exam: general weakness Psych cooperative Mood & Affect: flat affect Medical Records Data Medical Nutrition Assessment Dietitian: Malnutrition Criteria Met Start: 07/03/25 17:56 Freq: Status: Active Protocol: Document 07/03/25 17:56 RMA (Rec: 07/03/25 17:56 RMA [id number]) Nutrition Malnutrition Evidence of Yes Malnutrition Exists Malnutrition (severe Chronic ): Evidenced By Suboptimal Energy Intake (Severe),Weight Loss (Severe) Clinical Problem Chronic Disease or Condition Related Malnutrition Etiology severe protein-calorie malnutrition in the context of chronic disease and debility related to inadequate energy/oral intake and difficulty swallowing Signs/Symptoms as evidenced by ~20% unintentional weight loss x less than 6 months, BMI 20.6, PO meeting less than 50% estimated nutrition needs and need for mechanically altered food Status Active Problem Recommendation Dietitian Will liberalize therapeutic diet to regular with Recommendations/ consistency/texture as per SUPERVISOR [employer]SEM[employer]OCK. Changes Will add 120 mL Ensure Plus HP with meals as tolerated. Will add fortified pudding with lunch and dinner tray. May need to consider enteral nutrition support if PO established inadequate and weight continues to decline. Weight / BMI Weight Weight: 108 lb 14.534 oz Body Mass Index (BMI) 20.5 ABG / Lab / Microbiology Data 07/08/25 05:44 07/08/25 05:44 Laboratory: Laboratory Results - last 24 hr 07/08/25 05:44: WBC 6.5, RBC 3.14 L, Hgb 10.1 L, Hct 29.1 L, MCV 92.7, MCH 32.2 H, MCHC 34.7, RDW Std Deviation 45.1 H, RDW Coeff of [place] 13.5, Plt Count 188, MPV 9.3, Immature Gran % (Auto) 0.300, Neut % (Auto) 48.3, Lymph % (Auto) 38.8, [place] % (Auto) 7.6, Eos % (Auto) 4.2, Baso % (Auto) 0.8, Absolute Neuts (auto) 3.1, Absolute Lymphs (auto) 2.52, Nucleated RBC % 0, Sodium 135, Potassium 3.6, Chloride 108, Carbon Dioxide 20.4 L, Anion Gap 7, BUN 23 H, Creatinine 0.53 L, E stim Creat Clear Calc 43.73 L, Est GFR (MDRD) Non-Af 94, BUN/Creatinine Ratio 43.8 H, Glucose 111 H, Calcium 9.3 Microbiology: Microbiology 07/02/25 23:05 Urine, Catheterized Urine Culture - Final Escherichia coli Klebsiella pneumoniae sp pneum D/C Instructions Discharge Activity: Return to Normal Activity Weight Bearing Status: Weight bearing as tolerated Call your doctor if you observe: Fever of 101 or Higher, Shortness of breath, Dizziness, Swelling in the ankles and Chest pain DC O2, CPAP, BIPAP Needs Home O2 Discharge instructions: No DC home with Oxygen: No Meaningful Use Info Meaningful Use Meaningful Use Diagnoses (Choose all that apply): None applicable Discharge Plan Admission Admit Date/Time: 07/03/25 00:27 Primary Reason for Your Visit: acute CVA, UTI Attending Provider: Beth Sky Primary Care Provider: Candelario Santana Chi Consulting Providers: Rojas Elizalde; Baldev Kaba Instructions Patient Instructions: AFib Preventing Stroke, ED Urinary Tract Infections in Men, Booklet - Understanding Stroke Discharge Orders/Prescriptions Prescriptions: New cefdinir 300 mg Capsule 300 mg PO Q12 Qty: 5 0RF aspirin 81 mg tablet 81 mg PO DAILY Qty: 30 2RF atorvastatin [Lipitor] 40 mg tablet 40 mg PO DAILY Qty: 30 2RF lactulose 10 gram/15 mL solution 30 ml PO TID Qty: 3000 1RF Rx Instructions: titrate until 2-3 loose stools daily Continued melatonin 3 mg tablet 3 mg PO QHS multivitamin Tablet 1 tab PO QAM carbidopa-levodopa 25-100 mg tablet 1 tab PO TID acetaminophen 500 mg Tablet 1,000 mg PO Q8 Qty: 0 0RF ergocalciferol (vitamin D2) [Vitamin D2] 1,250 mcg (50,000 unit) Capsule 1,250 mcg PO Q7D Qty: 0 0RF levothyroxine 25 mcg Tablet 25 mcg PO DAILY@0600 Qty: 1 0RF calcium carbonate 200 mg calcium (500 mg) Tablet,Chewable 500 mg PO TIDCM Qty: 1 0RF diclofenac sodium [Voltaren Arthritis Pain] 1 % gel 2 g topical BID Qty: 100 0RF Rx Instructions: apply BID to both knees Referrals / Follow Up: Baldev Kaba MD [Med Staff - Active Staff, Vascular Surgery] - Within 1 Week Candelario Santana Chi, MD [Primary Care Provider, Geriatrics] - Within 1 Week Disposition Disposition (needs filled in before D/C Order can be placed): Home, Self Care Charges/Coding Visit Charges Inpatient E&M: 10661 Disch Hosp >30min
[2025-07-08 13:38] VITALS: BP 126/50; PULSE 64; RESP 16; TEMP 36.6; O2SAT 100
== END 2025-07-08 14:42 | disposition skilled nursing facility (03) | DRG 64 ==
LOC: ED 22:26 → PCU 07-03 00:47
PROVIDERS: Family Medicine; Admitting Provider Family Medicine; Emergency Provider Surgery; PCP Family Medicine Geriatric Medicine; Visit Provider Student in an Organized Health Care Education/Training Program
DX: I63.9 Cerebral infarction, unspecified (principal); E43 Unspecified severe protein-calorie malnutrition; G93.40 Encephalopathy, unspecified; N39.0 Urinary tract infection, site not specified; R13.10 Dysphagia, unspecified; B96.1 Klebsiella pneumoniae [K. pneumoniae] as the cause of diseases classified elsewhere; G20.A1 Parkinson's disease without dyskinesia, without mention of fluctuations; I48.91 Unspecified atrial fibrillation; E11.9 Type 2 diabetes mellitus without complications; I10 Essential (primary) hypertension; I65.23 Occlusion and stenosis of bilateral carotid arteries; I77.9 Disorder of arteries and arterioles, unspecified; E78.5 Hyperlipidemia, unspecified; S70.01XA Contusion of right hip, initial encounter; M48.02 Spinal stenosis, cervical region; W19.XXXA Unspecified fall, initial encounter; B96.20 Unspecified Escherichia coli [E. coli] as the cause of diseases classified elsewhere; R62.7 Adult failure to thrive; Z96.642 Presence of left artificial hip joint; R53.81 Other malaise; M81.0 Age-related osteoporosis without current pathological fracture; Z91.81 History of falling; Z79.82 Long term (current) use of aspirin; R29.6 Repeated falls; Z68.21 Body mass index [BMI] 21.0-21.9, adult; Z79.01 Long term (current) use of anticoagulants
CPT/HCPCS: 36415; 36600; 70450; 70496; 70498; 70551; 73502; 74230; 76705; 80048; 80061; 80076; 81001; 82140; 82803; 82962; 85025; 86706; 86803; 87077; 87086; 87088; 87186; 87340; 92526; 92610; 92611; 93308; 93880; 94762; 97110; 97116; 97163; 97166; 97530; 97535; 97802; 99285; Q9967; A4216; J2405

== ENCOUNTER 2025-07-08 14:52 | Inpatient (IN) | payer MEDICARE, SELFPAY ==
--- OUTSIDE RECORDS SUMMARY | 2025-07-08 15:00 | XMS RPT_ITS | CCD ---
Author Organization [facility] Care Team Providers Care Veterinary Virus Serum Inspector Name Role Phone Abhay Ferreira . Unavailable Unavailable PROVIDER, UNKNOWN Unavailable Unavailable MAX, CANDELARIO-CHI Unavailable Unavailable Joe Hein Unavailable Unavailable PROVIDER, UNKNOWN Unavailable Unavailable Max, Candelario Chi Unavailable Unavailable REFERRING, CARYN WILLS ID Unavailable Unavailable MAX, CANDELARIO-CHI Unavailable Unavailable MAX, CANDELARIO-CHI Unavailable Unavailable Dr. Candelario Santana Chi Primary Care Provider [phone] Eber Robles Emergency Provider Dr. Jessica Yuan Attending Provider Dr. Jessica Yuan Admit Provider Dr. Jessica Yuan Other Provider Dr. Ash Araujo Other Provider Friend, Dr. Hardy Attending Provider Dr. Ash Araujo Referring Provider Dr. Ash Araujo Attending Provider Dr. Candelario Santana Chi Primary Care Provider [phone] Eber Robles Emergency Provider Dr. Jessica Yuan Attending Provider Dr. Jessica Yuan Admit Provider Dr. Jessica Yuan Other Provider Dr. Ash Araujo Referring Provider Dr. Ash Araujo Other Provider Friend, Dr. Hardy Attending Provider Dr. Ash Araujo Attending Provider Dr. Candelario Santana Chi Referring Provider Max, Dr. Candelario Angeles Primary Care Provider Friend, Dr. Hardy Attending Provider Max, Dr. Candelario Angeles Primary Care Provider Max, Dr. Candelario Angeles Referring Provider Friend, Dr. Hardy Attending Provider Friend, Dr. Hardy Other Provider Shiv, Dr. Trotter Attending Provider Friend, Dr. aHrdy Referring Provider Max, Dr. Candelario Angeles Primary [...] Provider Dr. Abdirashid Cano DO Referring Provider 1(Formerly [facility])[phone] Dr. Abdirashid Cano DO Emergency Provider Chace ALFARO, Dr. Asher Admit Provider Chace ALFARO, Dr. Asher Attending Provider Chace ALFARO, Dr. Asher Other Provider Oswaldo ALFARO, Dr. Gutierrez Other Provider Umer DELEON, Dr. Nielsen Attending Provider Kristi DELEON, Dr. De Paz [...] Prince ALFARO, Dr. Sung Referring Provider Unavail able José Luis ALFARO, Dr. Corona Emergency Provider José Luis ALFARO, Dr. Corona Attending Provider Prakash HEATING AND AIR CONDITIONING MECHANIC-CMore Attending Provider Max, Candelario Chi Primary Care Unavailable Sementi, Lizet Admitting Unavaila ble Sementi, Lizet Referring Unavaila ble Sementi, Katie Bryan Attending Unavaila ble Sementi, Lizet Consulting Unavaila ble Max, Candelario Chi Attending Unavailable Max, Candelario Chi Referring Unavailable Max, Candelario Chi Primary Care Unavailable Max, Candelario Chi Primary Care Unavailable Pineda Abbott Attending Unavailable Abdirashid Cano Referring Unavailable Max, Candelario Chi Primary Care Unavailable Chace, Lakeshia Admitting Unavailable Matt Chacon Consulting Unavailable Matt Chacon Attending Unavailable Lakeshia Mas Consulting Unavailable Baldev Berry Consulting Unavailable Gia Owusu Consulting Unavailable Max, Candelario Chi Attending Unavailable Max, Candelario Chi Referring Unavailable Max, Candelario Chi Primary Care Unavailable Max, Candelario Chi Attending Unavailable Max, Candelario Chi Referring Unavailable Max, Candelario Chi Primary Care Unavailable Fany Chaconag Consulting Unavailable Abdirashid Caon Referring Unavailable Gia Owusu Attending Unavailable Mas, Lakeshia Admitting Unavailable Max, Candelario Chi Primary Care Unavailable Lakeshia Mas Consulting Unavailable Baldev Berry Consulting Unavailable Tonio, Rojas Admitting Unavailable Rojas Elizalde Consulting Unavailable Beth Sky Attending Unavailable Max, Candelario Chi Primary Care Unavailable Baldev Kaba Consulting Unavailable Max, Candelario Chi Primary Care Unavailable SemenKatie partida Admitting Unavaila ble Sementi, Katie Bryan Attending Unavaila ble Sementi, Lizet Referring Unavaila ble Gia Owusu Attending Unavailable More Randall Attending Unavailable Max, Candelario Chi Referring Unavailable Max, Candelario Chi Primary Care Unavailable ShivSergo holliday Attending Unavailable Max, Candelario Chi Referring Unavailable Max, Candelario Chi Primary Care Unavailable Max, Candelario Chi Primary Care Unavailable Baldev Kaba Attending Unavailable Semenjaquan, Katie Bryan Referring Unavaila ble Max, Candelario Chi Referring Unavailable More Randall Attending Unavailable Max, Candelario Chi Primary Care Unavailable ShivSergo holliday Attending Unavailable Max, Candelario Chi Primary Care Unavailable Max, Candelario Chi Attending Unavailable Max, Candelario Chi Referring Unavailable Max, Candelario Chi Primary Care Unavailable Max, Candelario Chi Primary Care Unavailable Steve Werenr Attending Unavailable Max, Candelario Chi Referring Unavailable [...] Primary Care Unavailable Sergo Chaney Attending Unavailable Chace, Lakeshia Referring Unavailable Jessica Yuan Attending Unavailable Librado Roe Consulting Unavailable Adeli, Amir Consulting Unavailable Hinduja, Monique Consulting Unavailable Wiley, Lolis Consulting Unavailable Zha, Michelle Consulting Unavailable Pascual, Lon Consulting Unavailable Linda, Carol Consulting Unavailable Kane Fournier Consulting Unavailable Jose Markham Consulting Unavailable Peter Rice Consulting Unavailable Francheska Johnson Consulting Unavailable Deepti Kowalski Consulting Unavailable Hossein Haas Consulting Unavailable Alexsandra Peck Consulting Unavailable Armand Cabrera Consulting Unavailable Cornelia Soto Consulting UnavailBenitez Law Consulting Unavailable WalkerRema oseguera Consulting Unavailable Dangelo Nolan Consulting Unavailable Padmini Owusu Consulting Unavailable Pawel Vargas Consulting Unavailable Beth Sky Consulting Unavailable Lakeshia Mas Attending Unavailable Baldev Berry Attending Unavailable Max, Candelario Chi Primary Care Unavailable Steve Werner Attending Unavailable Jo Vizcarra Attending Unavailable Rojas Elizalde Attending Unavailable Max, Candelario Chi Primary Care Unavailable Max, Candelario Chi Primary Care Unavailable Cj Ordonez Attending Unavailable Allergies Allergy Classification Reported Allergen(s) Allergy Type Date of Onset Reaction(s) Facility (20 sources) Penicillins; Translations: [Penicillins] Allergy to substance 10-22-2020 [facility] Medications Current Medications Medication Drug Class(es) Dates Sig (Normalized) Sig (Original) acetaminophen 500 mg oral tablet (5 sources) Start: 02-21-2025 take 2 tablets by mouth every eight hours Acetaminophen 500 mg Tablet Active 1000 mg PO EVERY 8 HOURS 0 February 21, 2025 12:00am pain apixaban [...] knees docusate sodium 50 mg / sennosides, assisted 8.6 mg oral tablet (9 sources) Start: [...] BEDTIME NEEDED as needed for Insomnia 0 0 February 21, 2025 12:00am March 08, [...] 25 mg PO TWICE A DAY 1 March 08, 2025 12:00am Start: 03-19-2020 End: [...] Problem Date Documented Da te Episodic/Chronic Acute cerebrovascular disease (1 source) Cerebral infarction, unspecified; Translations: [Cerebral infarction, unspecified] Onset: 11-13-202 5 Chronic Acute myocardial infarction (20 sources) Myocardial infarction; [...] Coma; stupor; and brain damage (3 sources) Fawn coma scale finding; Translations: [Fawn coma scale score 13-15, at arrival to emergency department] 03-18-2025 Episodic Conduction disorders (2 sources) Long QT syndrome; Translations: [Long QT syndrome] Onset: Chronic Coronary atherosclerosis and other heart disease (2 sources) Old myocardial infarction; Translations: [Old myocardial infarction] Onset: Chronic Deficiency and other anemia (20 sources) Anemia; Translations: [Anemia, unspecified] 03-20-2022 Episodic Comment on above: Normochromic normocy tic with an increased RDW. 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] Onset: 5 03-08-2025 Chronic Diabetes mellitus with complications (6 sources) Type 2 diabetes mellitus with hypoglycemia without coma; Translations: [Type 2 diabetes mellitus with other specified complication] Onset: Chronic Diabetes mellitus without complication (20 sources) Type 2 diabetes mellitus; Translations: [Type 2 diabetes mellitus without complications] Onset: 5 03-20-2022 Chronic Comment on above: HGBA1C is 7.3 on no medications Disorders of lipid metabolism (20 sources) Hyperlipidemia, unspecified; Translations: [Hyperlipidemia] Onset: 7 03-19-2020 Chronic Comment on above: no on medication. Essential hypertension (20 sources) Essential (primary) hypertension; Translations: [Hypertensive disorder] Onset: 7 03-20-2022 Chronic Fracture of neck of femur (hip) (20 [...] aortic and tricuspid valves] Onset: 7 Chronic Malaise and fatigue (10 sources) Asthenia; Translations: [Other malaise] Onset: 5 02-23-2025 Episodic Nutritional deficiencies (16 sources) Vitamin D deficiency; Translations: [Vitamin D deficiency, unspecified] Onset: 5 02-17-2025 Chronic Osteoporosis (6 sources) Osteoporosis; Translations: [Age-related osteoporosis without current pathological fracture] Onset: 5 03-09-2025 Chronic Other aftercare (3 sources) Long-term current use of anticoagulant; Translations: [long term acute care registered nurse (current) use of anticoagulants] 03-18-2025 Episodic Other and ill-defined heart disease (4 sources) Left atrial enlargement; Translations: [Cardiomegaly] 02-23-2025 Chronic Other circulatory disease (1 source) Disorder of arteries and arterioles, unspecified; Translations: [Disorder of arteries and arterioles, unspecified] Onset: 5 Chronic Other circulatory disease (8 sources) Orthostatic hypotension; Translations: [Orthostatic hypotension] 03-08-2025 Episodic Other circulatory disease (8 sources) Carotid bruit; Translations: [Other specified symptoms and signs involving the circulatory and respiratory systems] 03-08-2025 Episodic Other connective tissue disease (1 source) Repeated falls; Translations: [Repeated falls] Onset: 5 Episodic Other gastrointestinal disorders (20 [...] [Constipation, unspecified] 12-09-2022 Episodic Other gastrointestinal disorders (8 sources) Incontinence of feces; Translations: [Full incontinence of feces] 03-08-2025 Episodic Other hematologic conditions (12 sources) Raised cardiac enzyme or marker; Translations: [Other specified abnormalities of plasma proteins] 03-19-2020 Episodic Other injuries and conditions due to external causes (3 sources) Closed injury of head; Translations: [Unspecified injury of head, initial encounter] 03-18-2025 Episodic Pancreatic disorders (not diabetes) (20 sources) [...] cephalomedu llary nailing 02/16/[address] Chacon Syncope (20 sources) Syncope and collapse; Translations: [...] Translations: [Urinary tract infection, site not specified] Onset: 5 Episodic Past or Other Problems Problem Classification Problem Date Documented Da te Episodic/Chronic Conditions associated with dizziness or vertigo (2 sources) Dizziness and giddiness; Translations: [Dizziness and giddiness] Onset: 03-05-2017 Episodic Contraceptive and procreative management (2 sources) Tubal ligation status; Translations: [Tubal ligation status] Onset: 02-13-2017 Episodic Deficiency and other anemia (2 sources) Anemia, unspecified; Translations: [Anemia, unspecified] Onset: 03-27-2025 Episodic E Codes: Fall (16 sources) Fall; Translations: [Unspecified fall, initial encounter] Onset: 03-01-2025 02-15-2025 Episodic Fluid and electrolyte disorders (10 sources) Hyponatremia; Translations: [Hypo-osmolality and hyponatremia] Onset: 03-27-2025 02-23-2025 Episodic Heart valve disorders (20 sources) Cardiac murmur, unspecified; Translations: [Heart murmur] Onset: 02-13-2017 03-19-2020 Episodic Comment on above: Last echocardiogram was 2016 and at that time there was mild calcification of the aortic valve, mild left atrial enlargement and trivial MR and TR. Noninfectious gastroenteritis (2 sources) Noninfective gastroenteritis and [...] Translations: [Hypotension, unspecified] Onset: 02-13-2017 Episodic Other circulatory disease (1 source) Orthostatic hypotension; Translations: [Orthostatic hypotension] Onset: 03-13-2025 Episodic Other circulatory disease (2 sources) Other specified symptoms and signs involving the circulatory and respiratory systems; Translations: [Other specified symptoms and signs involving the circulatory and respiratory systems] Onset: 03-27-2025 Episodic Other gastrointestinal disorders (4 sources) Constipation, unspecified; Translations: [Constipation, unspecified] Onset: 03-27-2025 12-09-2022 Episodic Other gastrointestinal disorders (2 sources) Other fecal abnormalities; Translations: [Other fecal abnormalities] Onset: 03-27-2025 Episodic Other gastrointestinal disorders (2 sources) Full incontinence of feces; Translations: [Full incontinence of feces] Onset: 03-27-2025 Episodic Other gastrointestinal disorders (1 source) Personal history of other diseases of the digestive system; Translations: [Personal history of other diseases of the digestive system] Onset: 03-27-2025 Episodic Other injuries and conditions due to external causes (2 sources) History of falling; Translations: [History of falling] Onset: 02-13-2017 Episodic Other injuries and conditions due to external causes (1 source) Encounter for examination and observation following other accident; Translations: [Encounter for examination and observation following other accident] Onset: 03-21-2025 Episodic Residual codes; unclassified (2 sources) Other specified postprocedural states; Translations: [Other specified postprocedural states] Onset: 03-27-2025 Episodic Residual codes; unclassified (1 source) Acquired 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; Translations: [Acquired 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] Onset: 03-27-2025 Episodic Screening or history of mental health and substance abuse (2 sources) Personal history of nicotine dependence; Translations: [Personal history of nicotine dependence] Onset: 02-13-2017 Episodic Unclassified (1 source) R53.83 Onset: 02-18-2017 Unclassified (19 sources) fx right shoulder 03-20-2022 Results Test Name Value Interpretation Reference Range Facil ity Ammoniaon 07-05-2025 Ammonia (P) [Moles/Vol] 44.0 umol/L Normal 11-51 [facility] Comment on above: Performed By: #### L 503.5510 ####[facility] [address] [place], [address] Basic Metabolic Profile (BMP )on 07-05-2025 BUN/CRE 37.3 RATIO High 10-20 [facility] Comment on above: Performed By: #### L 100.0100, L500.2500 ####[facility] [address] [place], [address] Calcium [Mass/Vol] 9.2 mg/dL Normal 7.6-11.0 [facility] Comment on above: Performed By: #### L 100.0100, L500.2500 ####[facility] [address] [place], [address] Chloride [Moles/Vol] 107 mmol/L Normal 98-108 [facility] Comment on above: Performed By: #### L 100.0100, L500.2500 ####[facility] [address] [place], [address] CO2 [Moles/Vol] 16.8 mmol/L Low 21.0-32.0 [facility] Comment on above: Performed By: #### L 100.0100, L500.2500 ####[facility] [address] [place], [address] Creatinine [Mass/Vol] 0.65 mg/dL Low 0.70-1.20 [facility] Comment on above: Performed By: #### L 100.0100, L500.2500 ####[facility] [address] [place], [address] ECRCL 43.73 ml/min Low 50-250 [facility] Comment on above: Performed By: #### L 100.0100, L500.2500 ####[facility] [address] [place], [address] GAP 11 Normal 5-15 [facility] Comment on above: Performed By: #### L 100.0100, L500.2500 ####[facility] [address] [place], [address] GFR/1.73 sq M.predicted among non-blacks MDRD (S/P/Bld) [Vol rate/Area] 90 mL/min/{1.73_m2} Normal >60 [facility] Comment on above: Result Comment: mL/m in/1.73m2 CKD-EPI Creatinine Equation (2020) Performed By: #### L 100.0100, L500.2500 ####[facility] [address] [place], [address] Glucose [Mass/Vol] 114 mg/dL High 70-99 [facility] Comment on above: Performed By: #### L 100.0100, L500.2500 ####[facility] [address] [place], [address] Potassium [Moles/Vol] 3.2 mmol/L Low 3.3-5.1 [facility] Comment on above: Result Comment: Hemo lysis present, Results??could be affected.?? Performed By: #### L 100.0100, L500.2500 ####[facility] [address] [place], [address] Sodium [Moles/Vol] 135 mmol/L Normal 133-145 [facility] Comment on above: Performed By: #### L 100.0100, L500.2500 ####[facility] [address] [place], [address] Urea nitrogen [Mass/Vol] 24 mg/dL High 4-19 [facility] Comment on above: Performed By: #### L 100.0100, L500.2500 ####[facility] [address] [place], [address] CBC W/Diff, Automatedon 11- Absolute Lymph 2.67 X10 3/uL Normal 0.83-4.51 [facility] Comment on above: Order Comment: REDRA W. PREVIOUS SPECIMEN REJECTED DUE TOQNS. 07/05/2542 Narinder R Erickson. Performed By: #### L 100.0100 ####[facility] [address] [place], [address] Absolute Neut 3.7 X10 3/uL Normal 2.0-7.7 [facility] Comment on above: Order Comment: REDRA W. PREVIOUS SPECIMEN REJECTED DUE TOQNS. 07/05/2542 Narinder R Erickson. Performed By: #### L 100.0100 ####[facility] [address] [place], [address] Basophils/100 WBC (Bld) 0.8 % Normal 0-1 [facility] Comment on above: Order Comment: REDRA W. PREVIOUS SPECIMEN REJECTED DUE TOQNS. 07/05/2542 Narinder R Erickson. Performed By: #### L 100.0100 ####[facility] [address] [place], [address] Eosinophils/100 WBC (Bld) 3.6 % Normal 0-5 [facility] Comment on above: Order Comment: REDRA W. PREVIOUS SPECIMEN REJECTED DUE TOQNS. 07/05/2542 Narinder R Erickson. Performed By: #### L 100.0100 ####[facility] [address] [place], [address] Erythrocyte distribution width (RBC) [Ratio] 13.2 % Normal 11.6-14.6 [facility] Comment on above: Order Comment: REDRA W. PREVIOUS SPECIMEN REJECTED DUE TOQNS. 07/05/2542 Narinder R Erickson. Performed By: #### L 100.0100 ####[facility] [address] [place], [address] Hematocrit (Bld) [Volume fraction] 30.5 % Low 37-47 [facility] Comment on above: Order Comment: REDRA W. PREVIOUS SPECIMEN REJECTED DUE TOQNS. 07/05/2542 Narinder R Erickson. Performed By: #### L 100.0100 ####[facility] [address] [place], [address] Hemoglobin (Bld) [Mass/Vol] 11.0 g/dL Low 12.0-15.0 [facility] Comment on above: Order Comment: REDRA W. PREVIOUS SPECIMEN REJECTED DUE TOQNS. 07/05/2542 Narinder R Erickson. Performed By: #### L 100.0100 ####[facility] [address] [place], [address] IG% 0.300 Normal 0.0-0.9 [facility] Comment on above: Order Comment: REDRA W. PREVIOUS SPECIMEN REJECTED DUE TOQNS. 07/05/2542 Narinder R Erickson. Result Comment: IG% - Immature Granulocytes (promyelocytes, myelocytes andmetamyelocytes) > 1% indicates that a LEFT SHIFT is Present. Performed By: #### L 100.0100 ####[facility] [address] [place], [address] Lymphocytes/100 WBC (Bld) 36.5 % Normal 19-41 [facility] Comment on above: Order Comment: REDRA W. PREVIOUS SPECIMEN REJECTED DUE TOQNS. 07/05/2542 Narinder R Erickson. Performed By: #### L 100.0100 ####[facility] [address] [place], [address] MCH (RBC) [Entitic mass] 32.4 pg High 27.0-32.0 [facility] Comment on above: Order Comment: REDRA W. PREVIOUS SPECIMEN REJECTED DUE TOQNS. 07/05/2542 Narinder R Erickson. Performed By: #### L 100.0100 ####[facility] [address] [place], [address] MCHC (RBC) [Mass/Vol] 36.1 g/dL High 32-36 [facility] Comment on above: Order Comment: REDRA W. PREVIOUS SPECIMEN REJECTED DUE TOQNS. 07/05/2542 Narinder R Erickson. Performed By: #### L 100.0100 ####[facility] [address] [place], [address] MCV (RBC) [Entitic vol] 90.0 fL Normal 81-99 [facility] Comment on above: Order Comment: REDRA W. PREVIOUS SPECIMEN REJECTED DUE TOQNS. 07/05/2542 Narinder R Erickson. Performed By: #### L 100.0100 ####[facility] [address] [place], [address] Monocytes/100 WBC (Bld) 8.5 % Normal 0-10 [facility] Comment on above: Order Comment: REDRA W. PREVIOUS SPECIMEN REJECTED DUE TOQNS. 07/05/25641 Narinder R Erickson. Performed By: #### L 100.0100 ####[facility] [address] [place], [address] Neutrophils/100 WBC (Bld) 50.3 % Normal 47-70 [facility] Comment on above: Order Comment: REDRA W. PREVIOUS SPECIMEN REJECTED DUE TOQNS. 07/05/2542 Narinder R Erickson. Performed By: #### L 100.0100 ####[facility] [address] [place], [address] Nucleated RBC (Bld) [#/Vol] 0 10*3/uL Normal 0-5 [facility] Comment on above: Order Comment: REDRA W. PREVIOUS SPECIMEN REJECTED DUE TOQNS. 07/05/2542 Narinder R Erickson. Performed By: #### L 100.0100 ####[facility] [address] [place], [address] Platelet mean volume (Bld) [Entitic vol] 9.3 fL Normal 6.2-12.0 [facility] Comment on above: Order Comment: REDRA W. PREVIOUS SPECIMEN REJECTED DUE TOQNS. 07/05/2542 Narinder R Erickson. Performed By: #### L 100.0100 ####[facility] [address] [place], [address] Platelets (Bld) [#/Vol] 202 10*3/uL Normal 150-450 [facility] Comment on above: Order Comment: REDRA W. PREVIOUS SPECIMEN REJECTED DUE TOQNS. 07/05/2542 Narinder R Erickson. Performed By: #### L 100.0100 ####[facility] [address] [place], [address] RBC (Bld) [#/Vol] 3.39 10*6/uL Low 4.2-5.4 [facility] Comment on above: Order Comment: REDRA W. PREVIOUS SPECIMEN REJECTED DUE TOQNS. 07/05/2542 Narinder R Erickson. Performed By: #### L 100.0100 ####[facility] [address] [place], [address] RDW SD 43.3 fl Normal 35.1-43.9 [facility] Comment on above: Order Comment: REDRA W. PREVIOUS SPECIMEN REJECTED DUE TOQNS. 07/05/2542 Narinder R Erickson. Performed By: #### L 100.0100 ####[facility] [address] [place], [address] WBC (Bld) [#/Vol] 7.3 10*3/uL Normal 4.4-11.0 [facility] Comment on above: Order Comment: REDRA W. PREVIOUS SPECIMEN REJECTED DUE TOQNS. 07/05/2542 Narinder R Ericksno. Performed By: #### L 100.0100 ####[facility] [address] [place], [address] Absolute Neut Normal 2.0-7.7 [facility] Comment on above: Result Comment: This specimen has been REJECTED due to Laboratory criteria:Quanity Not Sufficient.[facility] has been notified of need of recollection.07/05/25640 Narinder R Erickson Performed By: #### L 100.0100, L500.2500 ####[facility] [address] [place], [address] HCT Normal 37-47 [facility] Comment on above: Result Comment: This specimen has been REJECTED due to Laboratory criteria:Quanity Not Sufficient.[facility] has been notified of need of recollection.07/05/25640 Narinder R Erickson Performed By: #### L 100.0100, L500.2500 ####[facility] [address] [place], [address] HGB Normal 12.0-15.0 [facility] Comment on above: Result Comment: This specimen has been REJECTED due to Laboratory criteria:Quanity Not Sufficient.[facility] has been notified of need of recollection.07/05/25640 Narinder R Erickson Performed By: #### L 100.0100, L500.2500 ####[facility] [address] [place], [address] MCH Normal 27.0-32.0 [facility] Comment on above: Result Comment: This specimen has been REJECTED due to Laboratory criteria:Quanity Not Sufficient.[facility] has been notified of need of recollection.07/05/25640 Narinder R Erickson Performed By: #### L 100.0100, L500.2500 ####[facility] [address] [place], [address] MCHC Normal 32-36 [facility] Comment on above: Result Comment: This specimen has been REJECTED due to Laboratory criteria:Quanity Not Sufficient.[facility] has been notified of need of recollection.07/05/25640 Narinder R Erickson Performed By: #### L 100.0100, L500.2500 ####[facility] [address] [place], [address] MCV Normal 81-99 [facility] Comment on above: Result Comment: This specimen has been REJECTED due to Laboratory criteria:Quanity Not Sufficient.[facility] recollection.07/05/25640 Narinder R Erickson Performed By: #### L 100.0100, L500.2500 ####[facility] [address] [place], [address] NEUT% Normal 47-70 [facility] Comment on above: Result Comment: This specimen has been REJECTED due to Laboratory criteria:Quanity Not Sufficient.[facility] has been notified of need of recollection.07/05/25640 Narinder R Erickson Performed By: #### L 100.0100, L500.2500 ####[facility] [address] [place], [address] PLT Normal 150-450 [facility] Comment on above: Result Comment: This specimen has been REJECTED due to Laboratory criteria:Quanity Not Sufficient.[facility] been notified [facility] need of recollection.07/05/25640 Narinder R Erickson Performed By: #### L 100.0100, L500.2500 ####[facility] [address] [place], [address] RBC Normal 4.2-5.4 [facility] Comment on above: Result Comment: This specimen has been REJECTED due to Laboratory criteria:Quanity Not Sufficient.[facility] has been notified of need of recollection.07/05/25640 Narinder R Erickson Performed By: #### L 100.0100, L500.2500 ####[facility] [address] [place], [address] RDW CV Normal 11.6-14.6 [facility] Comment on above: Result Comment: This specimen has been REJECTED due to Laboratory criteria:Quanity Not Sufficient.[facility] has been notified of need of recollection.07/05/25640 Narinder R Erickson Performed By: #### L 100.0100, L500.2500 ####[facility] [address] [place], [address] RDW SD Normal 35.1-43.9 [facility] Comment on above: Result Comment: This specimen has been REJECTED due to Laboratory criteria:Quanity Not Sufficient.[facility] has been notified of need of recollection.07/05/25640 Narinder R Erickson Performed By: #### L 100.0100, L500.2500 ####[facility] [address] [place], [address] WBC Normal 4.4-11.0 [facility] Comment on above: Result Comment: This specimen has been REJECTED due to Laboratory criteria:Quanity Not Sufficient.[facility] has been notified of need of recollection.07/05/25640 Narinder R Erickson Performed By: #### L 100.0100, L500.2500 ####[facility] [address] [place], [address] Urine Cultureon 07-05-2025 URC Normal [facility] Comment on above: Performed By: #### M 100.2200 ####[facility] [address] [place], [address] Abdomen Limitedon 07-04-2025 Abdomen Limited Normal [facility] Ammoniaon 07-04-2025 Ammonia (P) [Moles/Vol] 82.1 umol/L High [facility] Comment on above: Performed By: #### L 503.5510 ####[facility] [address] [place], [address] Ammonia (P) [Moles/Vol] 65.2 umol/L High [facility] Comment on above: Performed By: #### L 503.5510 ####[facility] [address] [place], [address] Basic Metabolic Profile (BMP )on 07-04-2025 BUN/CRE 26.7 RATIO High - [facility] Comment on above: Order Comment: Comme nts: NPO at [place] prior to lipid panel Performed By: #### L 500.4100, L500.2500 ####[facility] [address] [place], [address] Calcium [Mass/Vol] 9.2 mg/dL Normal 7.6-11.0 [facility] Comment on above: Order Comment: Comme nts: NPO at [place] prior to lipid panel Performed By: #### L 500.4100, L500.2500 ####[facility] [address] [place], [address] Chloride [Moles/Vol] 106 mmol/L Normal 98-108 [facility] Comment on above: Order Comment: Comme nts: NPO at [place] prior to lipid panel Performed By: #### L 500.4100, L500.2500 ####[facility] [address] [place], [address] CO2 [Moles/Vol] 19.4 mmol/L Low 21.0-32.0 [facility] Comment on above: Order Comment: Comme nts: NPO at MN prior to lipid panel Performed By: #### L 500.4100, L500.2500 ####[facility] [address] [place], [address] Creatinine [Mass/Vol] 0.67 mg/dL Low 0.70-1.20 [facility] Comment on above: Order Comment: Comme nts: NPO at [place] prior to lipid panel Performed By: #### L 500.4100, L500.2500 ####[facility] [address] [place], [address] ECRCL 43.73 ml/min Low 50-250 [facility] Comment on above: Order Comment: Comme nts: NPO at [place] prior to lipid panel Performed By: #### L 500.4100, L500.2500 ####[facility] [address] [place], [address] GAP 12 Normal 5-15 [facility] Comment on above: Order Comment: Comme nts: NPO at [place] prior to lipid panel Performed By: #### L 500.4100, L500.2500 ####[facility] [address] [place], [address] GFR/1.73 sq M.predicted among non-blacks MDRD (S/P/Bld) [Vol rate/Area] 89 mL/min/{1.73_m2} Normal >60 [facility] Comment on above: Order Comment: Comme nts: NPO at [place] prior to lipid panel Result Comment: mL/m in/1.73m2 CKD-EPI Creatinine Equation (2020) Performed By: #### L 500.4100, L500.2500 ####[facility] [address] [place], [address] Glucose [Mass/Vol] 103 mg/dL High 70-99 [facility] Comment on above: Order Comment: Comme nts: NPO at MN prior to lipid panel Performed By: #### L 500.4100, L500.2500 ####[facility] [address] [place], [address] Potassium [Moles/Vol] 3.2 mmol/L Low 3.3-5.1 [facility] Comment on above: Order Comment: Comme nts: NPO at MN prior to lipid panel Performed By: #### L 500.4100, L500.2500 ####[facility] [address] [place], [address] Sodium [Moles/Vol] 137 mmol/L Normal 133-145 [facility] Comment on above: Order Comment: Comme nts: NPO at [place] prior to lipid panel Performed By: #### L 500.4100, L500.2500 ####[facility] [address] [place], [address] Urea nitrogen [Mass/Vol] 18 mg/dL Normal 4-19 [facility] Comment on above: Order Comment: Comme nts: NPO at [place] prior to lipid panel Performed By: #### L 500.4100, L500.2500 ####[facility] [address] [place], [address] Blood Gases by [facility] 025 DENYS TEST Positive Normal [facility] Comment on above: Performed By: #### L 9000.0800 ####[facility] [address] [place], [address] Base excess Calc (Bld) [Moles/Vol] -2 mmol/L Normal -2 to +2 [facility] Comment on above: Performed By: #### L 9000.0800 ####[facility] [address] [place], [address] Blood Gas Type ART Normal [facility] Comment on above: Performed By: #### L 9000.0800 ####[facility] [address] [place], [address] CO2 [Moles/Vol] 23 mmol/L Normal [facility] Comment on above: Performed By: #### L 9000.0800 ####[facility] [address] [place], [address] HCO3 (Bld) [Moles/Vol] 21.6 mmol/L Low 22-26 [facility] Comment on above: Performed By: #### L 9000.0800 ####[facility] [address] [place], [address] Mode Not entered Normal [facility] Comment on above: Performed By: #### L 9000.0800 ####[facility] [address] [place], [address] O2 Delivery Dev Room Air Normal [facility] Comment on above: Performed By: #### L 9000.0800 ####[facility] [address] [place], [address] pCO2 29.1 mmHg Low 35-45 [facility] Comment on above: Performed By: #### L 9000.0800 ####[facility] [address] [place], [address] pH (Bld) 7.48 [pH] High 7.35-7.45 [facility] Comment on above: Performed By: #### L 9000.0800 ####[facility] [address] [place], [address] PO2 92 mmHG Normal 75-100 [facility] Comment on above: Performed By: #### L 9000.0800 ####[facility] [address] [place], [address] SITE R Radial Normal [facility] Comment on above: Performed By: #### L 9000.0800 ####[facility] [address] [place], [address] SO2 98 Normal 94-98 [facility] Comment on above: Performed By: #### L 9000.0800 ####[facility] [address] [place], [address] Brain/Head without Contrasto n 07-04-2025 Brain/Head without Contrast Normal [facility] CBC W/Diff, Automatedon - Absolute Lymph 3.22 X10 3/uL Normal 0.83-4.51 [facility] Comment on above: Performed By: #### L 100.0100 ####[facility] [address] [place], [address] Absolute Neut 2.8 X10 3/uL Normal 2.0-7.7 [facility] Comment on above: Performed By: #### L 100.0100 ####[facility] [address] [place], [address] Basophils/100 WBC (Bld) 0.4 % Normal 0-1 [facility] Comment on above: Performed By: #### L 100.0100 ####[facility] [address] [place], [address] Eosinophils/100 WBC (Bld) 3.0 % Normal 0-5 [facility] Comment on above: Performed By: #### L 100.0100 ####[facility] [address] [place], [address] Erythrocyte distribution width (RBC) [Ratio] 13.2 % Normal 11.6-14.6 [facility] Comment on above: Performed By: #### L 100.0100 ####[facility] [address] [place], [address] Hematocrit (Bld) [Volume fraction] 31.2 % Low 37-47 [facility] Comment on above: Performed By: #### L 100.0100 ####[facility] [address] [place], [address] Hemoglobin (Bld) [Mass/Vol] 11.1 g/dL Low 12.0-15.0 [facility] Comment on above: Performed By: #### L 100.0100 ####[facility] [address] [place], [address] IG% 0.100 Normal 0.0-0.9 [facility] Comment on above: Result Comment: IG% - Immature Granulocytes (promyelocytes, myelocytes andmetamyelocytes) > 1% indicates that a LEFT SHIFT is Present. Performed By: #### L 100.0100 ####[facility] [address] [place], [address] Lymphocytes/100 WBC (Bld) 46.4 % High 19-41 [facility] Comment on above: Performed By: #### L 100.0100 ####[facility] [address] [place], [address] MCH (RBC) [Entitic mass] 31.7 pg Normal 27.0-32.0 [facility] Comment on above: Performed By: #### L 100.0100 ####[facility] [address] [place], [address] MCHC (RBC) [Mass/Vol] 35.6 g/dL Normal 32-36 [facility] Comment on above: Performed By: #### L 100.0100 ####[facility] [address] [place], [address] MCV (RBC) [Entitic vol] 89.1 fL Normal 81-99 [facility] Comment on above: Performed By: #### L 100.0100 ####[facility] [address] [place], [address] Monocytes/100 WBC (Bld) 9.2 % Normal 0-10 [facility] Comment on above: Performed By: #### L 100.0100 ####[facility] [address] [place], [address] Neutrophils/100 WBC (Bld) 40.9 % Low 47-70 [facility] Comment on above: Performed By: #### L 100.0100 ####[facility] [address] [place], [address] Nucleated RBC (Bld) [#/Vol] 0 10*3/uL Normal 0-5 [facility] Comment on above: Performed By: #### L 100.0100 ####[facility] [address] [place], [address] Platelet mean volume (Bld) [Entitic vol] 9.2 fL Normal 6.2-12.0 [facility] Comment on above: Performed By: #### L 100.0100 ####[facility] [address] [place], [address] Platelets (Bld) [#/Vol] 207 10*3/uL Normal 150-450 [facility] Comment on above: Performed By: #### L 100.0100 ####[facility] [address] [place], [address] RBC (Bld) [#/Vol] 3.50 10*6/uL Low 4.2-5.4 [facility] Comment on above: Performed By: #### L 100.0100 ####[facility] [address] [place], [address] RDW SD 43.8 fl Normal 35.1-43.9 [facility] Comment on above: Performed By: #### L 100.0100 ####[facility] [address] [place], [address] WBC (Bld) [#/Vol] 6.9 10*3/uL Normal 4.4-11.0 [facility] Comment on above: Performed By: #### L 100.0100 ####[facility] [address] [place], [address] Consultation - Surgicalon Consultation - Surgical Normal [facility] Hepatitis B Surface Antibody on 07-04-2025 HEP B Surf Ab Non-Reactive Normal [facility] Comment on above: Result Comment: <8.5 mIU/mL: Non-Reactive8.5<= x <11.5 mIU/mL: Indeterminate>=11.5 mIU/mL: Reactive Non Reactive: Inconsistent with immunity less than <10 mIU/mL Reactive: Consistent with immunity greater than or equal to 10 mIU/mL Performed By: #### L 3890.6102, L3890.6301, L3890.6202, L500.3400 ####[facility] [address] [place], [address] Hepatitis C Antibodyon 07-04 Hepatitis C Ab Non-Reactive Normal Nonreactive [facility] Comment on above: Order Comment: Reaso n for Exam: hepatic encephalopathy Result Comment: Reac tive: Presumptive evidence of antibodies to HCV. [facility] for supplemental testing.Non-Reactive: Antibodies to HCV were not detected; does notexclude the possibility of exposure to HCVReactive Results are presumptive evidence of antibodies toHCV. Follow CDC recommendations for supplemental testing.Order confirmation testing: HCV Quant by PCR testing -HCVPCR #[id number] Non Reactive: < 0.8 Equivocal: >/= 0.8 to < 1.0 Reactive: >/= 1.0The [facility] requires that a reactive/equivocal HCV antibodyresult be sent out for confirmation. HCV Quant by PCRtesting. Performed By: #### L 3890.6102, L3890.6301, L3890.6202, L500.3400 ####[facility] [address] [place], [address] L3890.6102on 07-04-2025 HEP B Surf Ag Non-Reactive Normal Nonreactive [facility] Comment on above: Order Comment: Reaso n for Exam: hepatic encephalopathy Result Comment: Reac tive: Presumptive evidence of HBV. Repeatedly reactivesamples must be confirmed using a neutralization test([employer] HBsAg Confirmatory Test)Non-Reactive: HBsAg not detected; does not exclude thepossibility of exposure to HBV Performed By: #### L 3890.6102, L3890.6301, L3890.6202, L500.3400 ####[facility] [address] [place], [address] Lipid Profileon 07-04-2025 CHOL:HDL 3.18 Normal [facility] Comment on above: Order Comment: Comme nts: NPO at [place] prior to lipid panel Performed By: #### L 500.4100, L500.2500 ####[facility] [address] [place], [address] Cholesterol [Mass/Vol] 158 mg/dL Normal <=200 [facility] Comment on above: Order Comment: Comme nts: NPO at [place] prior to lipid panel Result Comment: Chol esterol level, Desirable <200 mg/dLBorderline high cholesterol 200-239 mg/dLHigh cholesterol >=240 mg/dLRecommendations of the NCEP Adult Treatment Panel for thefollowing risk-cutoff thresholds for the [place] Americanpopulation. Performed By: #### L 500.4100, L500.2500 ####[facility] [address] [place], [address] Cholesterol in HDL [Mass/Vol] 50 mg/dL Normal [facility] Comment on above: Order Comment: Comme nts: NPO at [place] prior to lipid panel Result Comment: Sydni onal Cholesterol Education Program (NCEP) guidelines:<40 mg/dL: Low HDL-cholesterol (major risk factor for CHD)>= 60 mg/dL: High HDL-cholesterol (negative risk factor forCHD)HDL-cholesterol is affected by a number of factors, e.g.smoking, exercise, hormones, sex and age. Performed By: #### L 500.4100, L500.2500 ####[facility] [address] [place], [address] Cholesterol in LDL [Mass/Vol] 96 mg/dL Normal [facility] Comment on above: Order Comment: Comme nts: NPO at [place] prior to lipid panel Result Comment: Bord spltny=942-874 mg/dL Higher Cswi=558 mg/dL or greaterSampson Equation 2020 for LDL-C Performed By: #### L 500.4100, L500.2500 ####[facility] [address] [place], [address] Cholesterol in VLDL [Mass/Vol] 12 mg/dL Normal 5-40 [facility] Comment on above: Order Comment: Comme nts: NPO at [place] prior to lipid panel Performed By: #### L 500.4100, L500.2500 ####[facility] [address] [place], [address] Triglyceride [Mass/Vol] 59 mg/dL Normal [facility] Comment on above: Order Comment: Comme nts: NPO at [place] prior to lipid panel Result Comment: The drugs N-Acetylcysteine and Metamizole may falselydepress this assay.Normal range: <150 mg/dLBorderline High: 150-199 mg/dLHigh: 200-499 mg/dLVery High: >500 mg/dL Performed By: #### L 500.4100, L500.2500 ####[facility] [address] [place], [address] Liver Profileon 07-04-2025 Albumin [Mass/Vol] 3.0 g/dL Low 3.4-4.8 [facility] Comment on above: Order Comment: Reaso n for Exam: hepatic encephalopathy Performed By: #### L 3890.6102, L3890.6301, L3890.6202, L500.3400 ####[facility] [address] [place], [address] ALK PHOS 88 U/L Normal 35-104 [facility] Comment on above: Order Comment: Reaso n for Exam: hepatic encephalopathy Performed By: #### L 3890.6102, L3890.6301, L3890.6202, L500.3400 ####[facility] [address] [place], [address] ALT [Catalytic activity/Vol] 9 U/L Normal <=34 [facility] Comment on above: Order Comment: Reaso n for Exam: hepatic encephalopathy Performed By: #### L 3890.6102, L3890.6301, L3890.6202, L500.3400 ####[facility] [address] [place], [address] AST [Catalytic activity/Vol] 31 U/L Normal <=31 [facility] Comment on above: Order Comment: Reaso n for Exam: hepatic encephalopathy Performed By: #### L 3890.6102, L3890.6301, L3890.6202, L500.3400 ####[facility] [address] [place], [address] Bilirubin [Mass/Vol] 0.75 mg/dL Normal 0.00-1.30 [facility] Comment on above: Order Comment: Reaso n for Exam: hepatic encephalopathy Performed By: #### L 3890.6102, L3890.6301, L3890.6202, L500.3400 ####[facility] [address] [place], [address] Bilirubin.direct [Mass/Vol] 0.38 mg/dL High 0.00-0.30 [facility] Comment on above: Order Comment: Reaso n for Exam: hepatic encephalopathy Performed By: #### L 3890.6102, L3890.6301, L3890.6202, L500.3400 ####[facility] [address] [place], [address] Globulin (S) [Mass/Vol] 3.3 g/dL Normal 2.2-4.2 [facility] Comment on above: Order Comment: Reaso n for Exam: hepatic encephalopathy Performed By: #### L 3890.6102, L3890.6301, L3890.6202, L500.3400 ####[facility] [address] [place], [address] T PROT 6.3 g/dL Normal 5.9-8.4 [facility] Comment on above: Order Comment: Reaso n for Exam: hepatic encephalopathy Performed By: #### L 3890.6102, L3890.6301, L3890.6202, L500.3400 ####[facility] [address] [place], [address] Basic Metabolic Profile (BMP )on 07-03-2025 Glucose [Mass/Vol] 161 mg/dL High 70-99 [facility] Comment on above: Result Comment: AMENDED REPORT 07/03/25 0632 GLU previously reported as: 159 H mg/dL Performed By: #### L 500.2500, L100.0100 ####[facility] [address] [place], [address] Brain without Contraston Brain without Contrast Normal [facility] CBC W/Diff, Automatedon 06-23 Absolute Lymph 2.80 X10 3/uL Normal 0.83-4.51 [facility] Comment on above: Performed By: #### L 500.2500, L100.0100 ####[facility] [address] [place], [address] Absolute Neut 5.0 X10 3/uL Normal 2.0-7.7 [facility] Comment on above: Performed By: #### L 500.2500, L100.0100 ####[facility] [address] [place], [address] Basophils/100 WBC (Bld) 0.5 % Normal 0-1 [facility] Comment on above: Performed By: #### L 500.2500, L100.0100 ####[facility] [address] [place], [address] Eosinophils/100 WBC (Bld) 0.8 % Normal 0-5 [facility] Comment on above: Performed By: #### L 500.2500, L100.0100 ####[facility] [address] [place], [address] Erythrocyte distribution width (RBC) [Ratio] 13.2 % Normal 11.6-14.6 [facility] Comment on above: Performed By: #### L 500.2500, L100.0100 ####[facility] [address] [place], [address] Hematocrit (Bld) [Volume fraction] 33.0 % Low 37-47 [facility] Comment on above: Performed By: #### L 500.2500, L100.0100 ####[facility] [address] [place], [address] Hemoglobin (Bld) [Mass/Vol] 12.0 g/dL Normal 12.0-15.0 [facility] Comment on above: Performed By: #### L 500.2500, L100.0100 ####[facility] [address] [place], [address] IG% 0.200 Normal 0.0-0.9 [facility] Comment on above: Result Comment: IG% - Immature Granulocytes (promyelocytes, myelocytes andmetamyelocytes) > 1% indicates that a LEFT SHIFT is Present. Performed By: #### L 500.2500, L100.0100 ####[facility] [address] [place], [address] Lymphocytes/100 WBC (Bld) 33.1 % Normal 19-41 [facility] Comment on above: Performed By: #### L 500.2500, L100.0100 ####[facility] [address] [place], [address] MCH (RBC) [Entitic mass] 32.4 pg High 27.0-32.0 [facility] Comment on above: Performed By: #### L 500.2500, L100.0100 ####[facility] [address] [place], [address] MCHC (RBC) [Mass/Vol] 36.4 g/dL High 32-36 [facility] [facility] Comment on above: Performed By: #### L 500.2500, L100.0100 ####[facility] [address] [place], [address] MCV (RBC) [Entitic vol] 89.2 fL Normal 81-99 [facility] Comment on above: Performed By: #### L 500.2500, L100.0100 ####[facility] [address] [place], [address] Monocytes/100 WBC (Bld) 5.9 % Normal 0-10 [facility] Comment on above: Performed By: #### L 500.2500, L100.0100 ####[facility] [address] [place], [address] Neutrophils/100 WBC (Bld) 59.5 % Normal 47-70 [facility] Comment on above: Performed By: #### L 500.2500, L100.0100 ####[facility] [address] [place], [address] Nucleated RBC (Bld) [#/Vol] 0 10*3/uL Normal 0-5 [facility] Comment on above: Performed By: #### L 500.2500, L100.0100 ####[facility] [address] [place], [address] Platelet mean volume (Bld) [Entitic vol] 8.9 fL Normal 6.2-12.0 [facility] Comment on above: Performed By: #### L 500.2500, L100.0100 ####[facility] [address] [place], [address] Platelets (Bld) [#/Vol] 210 10*3/uL Normal 150-450 [facility] Comment on above: Performed By: #### L 500.2500, L100.0100 ####[facility] [address] [place], [address] RBC (Bld) [#/Vol] 3.70 10*6/uL Low 4.2-5.4 [facility] Comment on above: Performed By: #### L 500.2500, L100.0100 ####[facility] [address] [place], [address] RDW SD 43.2 fl Normal 35.1-43.9 [facility] Comment on above: Performed By: #### L 500.2500, L100.0100 ####[facility] [address] [place], [address] WBC (Bld) [#/Vol] 8.5 10*3/uL Normal 4.4-11.0 [facility] Comment on above: Performed By: #### L 500.2500, L100.0100 ####[facility] [address] [place], [address] CTA Head AND Neck W/ Contras ton 07-03-2025 CTA Head AND Neck W/ Contrast Normal [facility] Carotid Duplex Ultrasoundon 07-03-2025 Carotid Duplex Ultrasound Normal [facility] Echo, Limited Studyon 2024 Echo, Limited Study Normal [facility] MR/CON.PCM.NEon 07-03-2025 MR/CON.PCM.NE Normal [facility] Basic Metabolic Profile (BMP )on 07-02-2025 BUN/CRE 17.9 RATIO Normal 10-20 [facility] Comment on above: Performed By: #### L 500.2500, L100.0100 ####[facility] [address] [place], [address] Calcium [Mass/Vol] 9.1 mg/dL Normal 7.6-11.0 [facility] Comment on above: Performed By: #### L 500.2500, L100.0100 ####[facility] [address] [place], [address] Chloride [Moles/Vol] 109 mmol/L High 98-108 [facility] Comment on above: Performed By: #### L 500.2500, L100.0100 ####[facility] [address] [place], [address] CO2 [Moles/Vol] 18.7 mmol/L Low 21.0-32.0 [facility] Comment on above: Performed By: #### L 500.2500, L100.0100 ####[facility] [address] [place], [address] Creatinine [Mass/Vol] 0.60 mg/dL Low 0.70-1.20 [facility] Comment on above: Performed By: #### L 500.2500, L100.0100 ####[facility] [address] [place], [address] ECRCL 45.84 ml/min Low 50-250 [facility] Comment on above: Performed By: #### L 500.2500, L100.0100 ####[facility] [address] [place], [address] GAP 13 Normal 5-15 [facility] Comment on above: Performed By: #### L 500.2500, L100.0100 ####[facility] [address] [place], [address] GFR/1.73 sq M.predicted among non-blacks MDRD (S/P/Bld) [Vol rate/Area] 92 mL/min/{1.73_m2} Normal >60 [facility] Comment on above: Result Comment: mL/m in/1.73m2 CKD-EPI Creatinine Equation (2020) Performed By: #### L 500.2500, L100.0100 ####[facility] [address] [place], [address] Glucose [Mass/Vol] 162 mg/dL High 70-99 [facility] Comment on above: Performed By: #### L 500.2500, L100.0100 ####[facility] [address] [place], [address] Potassium [Moles/Vol] 3.3 mmol/L Normal 3.3-5.1 [facility] Comment on above: Performed By: #### L 500.2500, L100.0100 ####[facility] [address] [place], [address] Sodium [Moles/Vol] 140 mmol/L Normal 133-145 [facility] Comment on above: Performed By: #### L 500.2500, L100.0100 ####[facility] [address] [place], [address] Urea nitrogen [Mass/Vol] 11 mg/dL Normal 4-19 [facility] Comment on above: Performed By: #### L 500.2500, L100.0100 ####[facility] [address] [place], [address] Brain/Head without Contrasto n 07-02-2024 Brain/Head without Contrast Normal [facility] CBC W/Diff, Automatedon 11- 0-2024 Absolute Lymph 2.80 X10 3/uL Normal 0.83-4.51 [facility] Comment on above: Performed By: #### L 500.2500, L100.0100 ####[facility] [address] [place], [address] Absolute Neut 4.8 X10 3/uL Normal 2.0-7.7 [facility] Comment on above: Performed By: #### L 500.2500, L100.0100 ####[facility] [address] [place], [address] Basophils/100 WBC (Bld) 0.5 % Normal 0-1 [facility] Comment on above: Performed By: #### L 500.2500, L100.0100 ####[facility] [address] [place], [address] Eosinophils/100 WBC (Bld) 1.0 % Normal 0-5 [facility] Comment on above: Performed By: #### L 500.2500, L100.0100 ####[facility] [address] [place], [address] Erythrocyte distribution width (RBC) [Ratio] 13.3 % Normal 11.6-14.6 [facility] Comment on above: Performed By: #### L 500.2500, L100.0100 ####[facility] [address] [place], [address] Hematocrit (Bld) [Volume fraction] 34.5 % Low 37-47 [facility] Comment on above: Performed By: #### L 500.2500, L100.0100 ####[facility] [address] [place], [address] Hemoglobin (Bld) [Mass/Vol] 12.6 g/dL Normal 12.0-15.0 [facility] Comment on above: Performed By: #### L 500.2500, L100.0100 ####[facility] [address] [place], [address] IG% 0.200 Normal 0.0-0.9 [facility] Comment on above: Result Comment: IG% - Immature Granulocytes (promyelocytes, myelocytes andmetamyelocytes) > 1% indicates that a LEFT SHIFT is Present. Performed By: #### L 500.2500, L100.0100 ####[facility] [address] [place], [address] Lymphocytes/100 WBC (Bld) 33.7 % Normal 19-41 [facility] Comment on above: Performed By: #### L 500.2500, L100.0100 ####[facility] [address] [place], [address] MCH (RBC) [Entitic mass] 32.6 pg High 27.0-32.0 [facility] Comment on above: Performed By: #### L 500.2500, L100.0100 ####[facility] [address] [place], [address] MCHC (RBC) [Mass/Vol] 36.5 g/dL High 32-36 [facility] Comment on above: Performed By: #### L 500.2500, L100.0100 ####[facility] [address] [place], [address] MCV (RBC) [Entitic vol] 89.1 fL Normal 81-99 [facility] Comment on above: Performed By: #### L 500.2500, L100.0100 ####[facility] [address] [place], [address] Monocytes/100 WBC (Bld) 7.5 % Normal 0-10 [facility] Comment on above: Performed By: #### L 500.2500, L100.0100 ####[facility] [address] [place], [address] Neutrophils/100 WBC (Bld) 57.1 % Normal 47-70 [facility] Comment on above: Performed By: #### L 500.2500, L100.0100 ####[facility] [address] [place], [address] Nucleated RBC (Bld) [#/Vol] 0 10*3/uL Normal 0-5 [facility] Comment on above: Performed By: #### L 500.2500, L100.0100 ####[facility] [address] [place], [address] Platelet mean volume (Bld) [Entitic vol] 9.1 fL Normal 6.2-12.0 [facility] Comment on above: Performed By: #### L 500.2500, L100.0100 ####[facility] [address] [place], [address] Platelets (Bld) [#/Vol] 238 10*3/uL Normal 150-450 [facility] Comment on above: Performed By: #### L 500.2500, L100.0100 ####[facility] [address] [place], [address] RBC (Bld) [#/Vol] 3.87 10*6/uL Low 4.2-5.4 [facility] Comment on above: Performed By: #### L 500.2500, L100.0100 ####[facility] [address] [place], [address] RDW SD 43.3 fl Normal 35.1-43.9 [facility] Comment on above: Performed By: #### L 500.2500, L100.0100 ####[facility] [address] [place], [address] WBC (Bld) [#/Vol] 8.3 10*3/uL Normal 4.4-11.0 [facility] Comment on above: Performed By: #### L 500.2500, L100.0100 ####[facility] [address] [place], [address] Emergency Department Summary on 07-02-2025 Emergency Department Summary Normal [facility] HIP, UNI W/ Pelvis 2-3 Views on 07-02-2025 HIP, UNI W/ Pelvis 2-3 Views Normal [facility] Urinalysis, Completeon 07-02 AMORPHOUS 2+ Normal [facility] Comment on above: Order Comment: MARCO CTOR TO SPECIFY Performed By: #### L 400.0001 ####[facility] [address] [place], [address] BACTERIA 3+ /hpf Normal None Seen [facility] Comment on above: Order Comment: MARCO CTOR TO SPECIFY Performed By: #### L 400.0001 ####[facility] [address] [place], [address] EPI,TRANSITION 0-5 SEEN Normal 0-5 [facility] Comment on above: Order Comment: MARCO CTOR TO SPECIFY Performed By: #### L 400.0001 ####[facility] [address] [place], [address] RBC 0-5 SEEN Normal 0-5 [facility] Comment on above: Order Comment: COLLE CTOR TO SPECIFY Performed By: #### L 400.0001 ####[facility] [address] [place], [place], [address] WBC 25-50 SEEN Normal 0-5 [facility] Comment on above: Order Comment: COLLE CTOR TO SPECIFY Performed By: #### L 400.0001 ####[facility] [address] [place], [address] EPI,SQUAMOUS 0 SEEN Normal 5-10 [facility] Comment on above: Order Comment: MARCO CTOR TO SPECIFY Performed By: #### L 400.0001 ####[facility] [address] [place], [place], [address] Mucus Ql (Urine sed) [address] [facility] Comment on above: Order Comment: MARCO CTOR TO SPECIFY Performed By: #### L 400.0001 ####[facility] [address] [place], [place], [address] Femur Min 2 Viewson 03-29-20 25 Femur Min 2 Views Normal [facility] Orthopedic Visit Reporton Orthopedic Visit Report Normal [facility] Pelvis 1 or 2 Viewson 2024 Pelvis 1 or 2 Views Normal [facility] CRPon 03-20-2025 C-REACTIVE PROT 9.63 mg/L High 0.0-3.0 [facility] Comment on above: Order Comment: 204.1 Performed By: #### L 501.9310, L101.9900, L501.9985, L501.9520, L501.6710 ####[facility] [address] [place], [address] Erythrocyte Sed Rateon 03-20 SED RATE 20 mm/hr Normal 0-30 [facility] Comment on above: Order Comment: 204.1 Performed By: #### L 501.9310, L101.9900, L501.9985, L501.9520, L501.6710 ####[facility] [address] [place], [place], [address] Erythrocyte sedimentation ra teOrdered By: Pineda Morrison on 03-20-2025 ESR (Bld) [Velocity] 20 mm/h 0-30 [facility] Hemoglobin A1con 03-20-2025 HbA1c (Bld) [Mass fraction] 5.7 % Normal <=5.6 [facility] Comment on above: Order Comment: 204.1 Result Comment: Norm al < 5.7 % Prediabetic 5.7 - 6.4 % Diabetic >or= 6.5 % Please note range changes. Performed By: #### L 501.9310, L101.9900, L501.9985, L501.9520, L501.6710 ####[facility] [address] [place], [place], [id number] Hemoglobin A1c percentageOrd ered By: Pineda Morrison on 03-20-2025 HbA1c (Bld) [Mass fraction] 5.7 % <5.7 [facility] Comment on above: Normal < 5.7 % Predi abetic 5.7 - 6.4 % Diabetic >or= 6.5 % Please note range changes. Serum or plasma C reactive p rotein measurement (mass/volume)Ordered By: Pineda Morrison on 03-20-2025 CRP [Mass/Vol] 9.63 mg/L High 0.0-3.0 [facility] T4 Total, Thyroxinon 025 T4 [Mass/Vol] 6.6 ug/dL Normal 4.8-13.9 [facility] Comment on above: Order Comment: 204.1 Performed By: #### L 501.9310, L101.9900, L501.9985, L501.9520, L501.6710 ####[facility] [address] [place], [place], [id number] TSH DL <= 0.005 mIU/L QnOrde red By: Pineda Morrison on 03-20-2025 TSH Qn 3.310 uIU/mL 0.300-4.200 [facility] Thyroid Stim Hormone (TSH)on 03-20-2025 TSH 3.310 uIU/mL Normal 0.300-4.200 [facility] Comment on above: Order Comment: 204.1 Performed By: #### L 501.9310, L101.9900, L501.9985, L501.9520, L501.6710 ####[facility] [address] [place], [address] ThyroxineOrdered By: Pineda rhodes on 03-20-2025 T4 [Mass/Vol] 6.6 ug/dL 4.8-13.9 [facility] Brain/Head without Contrasto n 03-18-2025 Brain/Head without Contrast Normal [facility] Emergency Department Summary on 03-18-2025 Emergency Department Summary Normal [facility] Anion gap in Serum or Plasma Ordered By: Pineda Morrison on 03-13-2025 Anion gap [Moles/Vol] 12 mmol/L 5-15 [facility] BUN/creatinine ratioOrdered By: Pineda Morrison on 03-13-2025 Urea nitrogen/Creatinine [Mass ratio] 30.1 mg/mg High 10-20 [facility] Bilirubin, totalOrdered By: Pineda Morrison on 03-13-2025 Bilirubin [Mass/Vol] 0.55 mg/dL 0.00-1.30 [facility] CBC-Complete Blood Cnt No Di ffon 03-13-2025 Erythrocyte distribution width (RBC) [Ratio] 14.7 % High 11.6-14.6 [facility] Comment on above: Order Comment: 204 Performed By: #### L 500.4100, L500.4050, L100.0500 ####[facility] [address] [place], [address] Hematocrit (Bld) [Volume fraction] 28.8 % Low 37-47 [facility] Comment on above: Order Comment: 204 Performed By: #### L 500.4100, L500.4050, L100.0500 ####[facility] [address] [place], [address] Hemoglobin (Bld) [Mass/Vol] 10.4 g/dL Low 12.0-15.0 [facility] Comment on above: Order Comment: 204 Performed By: #### L 500.4100, L500.4050, L100.0500 ####[facility] [address] [place], [address] MCH (RBC) [Entitic mass] 32.4 pg High 27.0-32.0 [facility] Comment on above: Order Comment: 204 Performed By: #### L 500.4100, L500.4050, L100.0500 ####[facility] [address] [place], [address] MCHC (RBC) [Mass/Vol] 36.1 g/dL High 32-36 [facility] Comment on above: Order Comment: 204 Performed By: #### L 500.4100, L500.4050, L100.0500 ####[facility] [address] [place], [address] MCV (RBC) [Entitic vol] 89.7 fL Normal 81-99 [facility] Comment on above: Order Comment: 204 Performed By: #### L 500.4100, L500.4050, L100.0500 ####[facility] [address] [place], [address] Platelet mean volume (Bld) [Entitic vol] 9.4 fL Normal 6.2-12.0 [facility] Comment on above: Order Comment: 204 Performed By: #### L 500.4100, L500.4050, L100.0500 ####[facility] [address] [place], [address] Platelets (Bld) [#/Vol] 240 10*3/uL Normal 150-450 [facility] Comment on above: Order Comment: 204 Performed By: #### L 500.4100, L500.4050, L100.0500 ####[facility] [address] [place], [address] RBC (Bld) [#/Vol] 3.21 10*6/uL Low 4.2-5.4 [facility] Comment on above: Order Comment: 204 Performed By: #### L 500.4100, L500.4050, L100.0500 ####[facility] [address] [place], [address] RDW SD 47.8 fl High 35.1-43.9 [facility] Comment on above: Order Comment: 204 Performed By: #### L 500.4100, L500.4050, L100.0500 ####[facility] [address] [place], [address] WBC (Bld) [#/Vol] 6.3 10*3/uL Normal 4.4-11.0 [facility] Comment on above: Order Comment: 204 Performed By: #### L 500.4100, L500.4050, L100.0500 ####[facility] [address] [place], [address] Calculated very low density lipoprotein (VLDL) cholesterol measurementOrdered By: Pineda Morrison on 03-13-2025 Calculated very low density lipoprotein (VLDL) cholesterol measurement 20 mg/dL 5-40 [facility] Carbon dioxide, total [Moles /volume] in Central venous bloodOrdered By: Pineda Morrison on 03-13-2025 CO2 [Moles/Vol] 21.2 mmol/L 21.0-32.0 [facility] Chloride assayOrdered By: Jacky Morrison on 03-13-2025 Chloride [Moles/Vol] 99 mmol/L 98-108 [facility] Comprehensive Metabolic Prof ilon 03-13-2025 Albumin [Mass/Vol] 3.1 g/dL Low 3.4-4.8 [facility] Comment on above: Order Comment: 204 Performed By: #### L 500.4100, L500.4050, L100.0500 ####[facility] [address] [place], [address] Albumin/Globulin [Mass ratio] 1.0 {ratio} Normal 0.9-2.4 [facility] Comment on above: Order Comment: 204 Performed By: #### L 500.4100, L500.4050, L100.0500 ####[facility] [address] [place], [address] ALK PHOS 130 U/L High 35-104 [facility] Comment on above: Order Comment: 204 Performed By: #### L 500.4100, L500.4050, L100.0500 ####[facility] [address] [place], [address] ALT [Catalytic activity/Vol] 6 U/L Normal <=34 [facility] Comment on above: Order Comment: 204 Performed By: #### L 500.4100, L500.4050, L100.0500 ####[facility] [address] [place], [address] AST [Catalytic activity/Vol] 29 U/L Normal <=31 [facility] Comment on above: Order Comment: 204 Performed By: #### L 500.4100, L500.4050, L100.0500 ####[facility] [address] [place], [address] Bilirubin [Mass/Vol] 0.55 mg/dL Normal 0.00-1.30 [facility] Comment on above: Order Comment: 204 Performed By: #### L 500.4100, L500.4050, L100.0500 ####[facility] [address] [place], [address] BUN/CRE 30.1 RATIO High 10-20 [facility] Comment on above: Order Comment: 204 Performed By: #### L 500.4100, L500.4050, L100.0500 ####[facility] [address] [place], [address] Calcium [Mass/Vol] 9.9 mg/dL Normal 7.6-11.0 [facility] Comment on above: Order Comment: 204 Performed By: #### L 500.4100, L500.4050, L100.0500 ####[facility] [address] [place], [address] Chloride [Moles/Vol] 99 mmol/L Normal 98-108 [facility] Comment on above: Order Comment: 204 Performed By: #### L 500.4100, L500.4050, L100.0500 ####[facility] [address] [place], [address] CO2 [Moles/Vol] 21.2 mmol/L Normal 21.0-32.0 [facility] Comment on above: Order Comment: 204 Performed By: #### L 500.4100, L500.4050, L100.0500 ####[facility] [address] [place], [address] Creatinine [Mass/Vol] 0.49 mg/dL Low 0.70-1.20 [facility] Comment on above: Order Comment: 204 Performed By: #### L 500.4100, L500.4050, L100.0500 ####[facility] [address] [place], [address] GAP 12 Normal 5-15 [facility] Comment on above: Order Comment: 204 Performed By: #### L 500.4100, L500.4050, L100.0500 ####[facility] [address] [place], [address] GFR/1.73 sq M.predicted among non-blacks MDRD (S/P/Bld) [Vol rate/Area] 97 mL/min/{1.73_m2} Normal >60 [facility] Comment on above: Order Comment: 204 Result Comment: mL/m in/1.73m2 CKD-EPI Creatinine Equation (2020) Performed By: #### L 500.4100, L500.4050, L100.0500 ####[facility] [address] [place], [address] Globulin (S) [Mass/Vol] 3.2 g/dL Normal 2.2-4.2 [facility] Comment on above: Order Comment: 204 Performed By: #### L 500.4100, L500.4050, L100.0500 ####[facility] [address] [place], [address] Glucose [Mass/Vol] 74 mg/dL Normal 70-99 [facility] Comment on above: Order Comment: 204 Performed By: #### L 500.4100, L500.4050, L100.0500 ####[facility] [address] [place], [address] Potassium [Moles/Vol] 4.1 mmol/L Normal 3.3-5.1 [facility] Comment on above: Order Comment: 204 Performed By: #### L 500.4100, L500.4050, L100.0500 ####[facility] [address] [place], [address] Sodium [Moles/Vol] 132 mmol/L Low 133-145 [facility] Comment on above: Order Comment: 204 Performed By: #### L 500.4100, L500.4050, L100.0500 ####[facility] [address] [place], [address] T PROT 6.3 g/dL Normal 5.9-8.4 [facility] Comment on above: Order Comment: 204 Performed By: #### L 500.4100, L500.4050, L100.0500 ####[facility] [address] [place], [address] Urea nitrogen [Mass/Vol] 15 mg/dL Normal 4-19 [facility] Comment on above: Order Comment: 204 Performed By: #### L 500.4100, L500.4050, L100.0500 ####[facility] [address] [place], [address] Erythrocyte distribution wid th ratioOrdered By: Pineda Morrison on 03-13-2025 Erythrocyte distribution width (RBC) [Ratio] 14.7 % High 11.6-14.6 [facility] Erythrocyte distribution wid th standard deviationOrdered By: Pineda Morrison on 03-13-2025 Erythrocyte distribution width (RBC) [Ratio] 47.8 fl High 35.1-43.9 [facility] Glomerular filtration rate ( GFR) estimation/1.73 sq m using serum, plasma, or whole bOrdered By: Pineda Morrison on 03-13-2025 GFR/1.73 sq M.predicted among non-blacks MDRD (S/P/Bld) [Vol rate/Area] 97 mL/min/{1.73_m2} >60 [facility] Comment on above: mL/min/1.73m2 CKD-EP I Creatinine Equation (2020) Hematocrit Auto (Bld) [Volum e fraction]Ordered By: Pineda Morrison on 03-13-2025 Hematocrit (Bld) [Volume fraction] 28.8 % Low 37-47 [facility] Hemoglobin measurementOrdere d By: Pineda Morrison on 03-13-2025 Hemoglobin (Bld) [Mass/Vol] 10.4 g/dL Low 12.0-15.0 [facility] LDL calc ser/plasOrdered By: Pineda Morrison on 03-13-2025 Cholesterol in LDL [Mass/Vol] 70 mg/dL [facility] Comment on above: Gzrbhoaocs=701-325 m g/dL & Higher Tcvj=788 mg/dL or greater Laboratory - Chemistry and C hemistry - challengeOrdered By: Pineda Morrison on 03-13-2025 AST [Catalytic activity/Vol] 29 U/L <32 [facility] Lipid Profileon 03-13-2025 CHOL:HDL 3.18 Normal [facility] Comment on above: Order Comment: 204 Performed By: #### L 500.4100, L500.4050, L100.0500 ####[facility] [address] [place], [address] Cholesterol [Mass/Vol] 132 mg/dL Normal <=200 [facility] Comment on above: Order Comment: 204 Result Comment: Chol esterol level, Desirable <200 mg/dLBorderline high cholesterol 200-239 mg/dLHigh cholesterol >=240 mg/dLRecommendations of the NCEP Adult Treatment Panel for thefollowing risk-cutoff thresholds for the [place]. Performed By: #### L 500.4100, L500.4050, L100.0500 ####[facility] [address] [place], [address] Cholesterol in HDL [Mass/Vol] 42 mg/dL Normal [facility] Comment on above: Order Comment: 204 Result Comment: Sydni onal Cholesterol Education Program (NCEP) guidelines:<40 mg/dL: Low HDL-cholesterol (major risk factor for CHD)>= 60 mg/dL: High HDL-cholesterol (negative risk factor forCHD)HDL-cholesterol is affected by a number of factors, e.g.smoking, exercise, hormones, sex and age. Performed By: #### L 500.4100, L500.4050, L100.0500 ####[facility] [address] [place], [address] Cholesterol in LDL [Mass/Vol] 70 mg/dL Normal [facility] Comment on above: Order Comment: 204 Result Comment: Bord oopofp=297-064 mg/dL Higher Tyml=758 mg/dL or greater Performed By: #### L 500.4100, L500.4050, L100.0500 ####[facility] [address] [place], [address] Cholesterol in VLDL [Mass/Vol] 20 mg/dL Normal 5-40 [facility] Comment on above: Order Comment: 204 Performed By: #### L 500.4100, L500.4050, L100.0500 ####[facility] [address] [place], [address] Triglyceride [Mass/Vol] 101 mg/dL Normal [facility] Comment on above: Order Comment: 204 Result Comment: The drugs N-Acetylcysteine and Metamizole may falselydepress this assay.Normal range: <150 mg/dLBorderline High: 150-199 mg/dLHigh: 200-499 mg/dLVery High: >500 mg/dL Performed By: #### L 500.4100, L500.4050, L100.0500 ####[facility] [address] [place], [place], [id number] MCV (mean corpuscular volume ) determinationOrdered By: Pineda Morrison on 03-13-2025 MCV (RBC) [Entitic vol] 89.7 fL 81-99 [facility] Mean corpuscular hemoglobin (MCH) determinationOrdered By: Pineda Morrison on 03-13-2025 MCH (RBC) [Entitic mass] 32.4 pg High 27.0-32.0 [facility] Mean corpuscular hemoglobin concentration (MCHC) determinationOrdered By: Pineda Morrison on 03-13-2025 MCHC (RBC) [Mass/Vol] 36.1 g/dL High 32-36 [facility] Mean platelet volume determi nationOrdered By: Pineda Morrison on 03-13-2025 Platelet mean volume (Bld) [Entitic vol] 9.4 fL 6.2-12.0 [facility] Platelet countOrdered By: Jacky Morrison on 03-13-2025 Platelets (Bld) [#/Vol] 240 10*3/uL 150-450 [facility] Potassium measurement (mass/ volume)Ordered By: Pineda Morrison on 03-13-2025 Potassium (Unsp spec) [Mass/Vol] 4.1 mmol/L 3.3-5.1 [facility] RBC Auto (Bld) [#/Vol]Ordere d By: Pineda Morrison on 03-13-2025 RBC (Bld) [#/Vol] 3.21 10*6/uL Low 4.2-5.4 [facility] Screening total cholesterol/ high density lipoprotein (HDL) cholesterol ratioOrdered By: Pineda Morrison on 03-13-2025 Cholesterol.total/Choles terol in HDL [Mass ratio] 3.18 {ratio} [facility] Serum creatinine measurement (mass/volume)Ordered By: Pineda Morrison on 03-13-2025 Creatinine [Mass/Vol] 0.49 mg/dL Low 0.70-1.20 [facility] Serum globulin measurementOr dered By: Pineda Morrison on 03-13-2025 Globulin (S) [Mass/Vol] 3.2 g/dL 2.2-4.2 [facility] Serum glucose measurement (m ass/volume)Ordered By: Pineda Morrison on 03-13-2025 Glucose [Mass/Vol] 74 mg/dL 70-99 [facility] Serum or plasma alanine cornejo otransferase (ALT) measurementOrdered By: Pineda Morrison on 03-13-2025 ALT [Catalytic activity/Vol] 6 U/L <35 [facility] Serum or plasma albumin sabino urement (mass/volume)Ordered By: Pineda Morrison on 03-13-2025 Albumin [Mass/Vol] 3.1 g/dL Low 3.4-4.8 [facility] Serum or plasma albumin/glob ulin mass ratioOrdered By: Pineda Morrison on 03-13-2025 Albumin/Globulin [Mass ratio] 1.0 {ratio} 0.9-2.4 [facility] Serum or plasma alkaline shaista sphatase measurementOrdered By: Pineda Morrison on 03-13-2025 ALP [Catalytic activity/Vol] 130 U/L High 35-104 [facility] Serum or plasma calcium sabino urement (mass/volume)Ordered By: Pineda Morrison on 03-13-2025 Calcium [Mass/Vol] 9.9 mg/dL 7.6-11.0 [facility] Serum or plasma cholesterol in HDL measurement (mass/volume)Ordered By: Pineda Morrison on 03-13-2025 Cholesterol in HDL [Mass/Vol] 42 mg/dL >40 [facility] Comment on above: National Cholesterol Education Program (NCEP) guidelines:<40 mg/dL: Low HDL-cholesterol (major risk factor for CHD)>= 60 mg/dL: High HDL-cholesterol (negative risk factor for CHD)HDL-cholesterol is affected by a number of factors, e.g. smoking, exercise, hormones, sex and age. Serum or plasma cholesterol measurement (mass/volume)Ordered By: Pineda Morrison on 03-13-2025 Cholesterol [Mass/Vol] 132 mg/dL <201 [facility] Comment on above: Cholesterol level, D esirable <200 mg/dLBorderline high cholesterol 200-239 mg/dLHigh cholesterol >=240 mg/dLRecommendations of the NCEP Adult Treatment Panel for the following risk-cutoff thresholds for the [place] population. Serum or plasma urea nitroge n measurement (mass/volume)Ordered By: Pineda Morrison on 03-13-2025 Urea nitrogen [Mass/Vol] 15 mg/dL 4- [facility] Sodium levelOrdered By: Jeffrey Morrison on 03-13-2025 Sodium [Moles/Vol] 132 mmol/L Low 133-145 [facility] Total proteinOrdered By: Marshal Morrison on 03-13-2025 Protein [Mass/Vol] 6.3 g/dL 5.9-8.4 [facility] Triglycerides measurementOrd ered By: Pineda Morrison on 03-13-2025 Triglyceride [Mass/Vol] 101 mg/dL <199 [facility] Comment on above: The drugs N-Acetylcy steine and Metamizole may falsely depress this assay. Normal range: <150 mg/dLBorderline High: 150-199 mg/dLHigh: 200-499 mg/dLVery High: >500 mg/dL White blood cell (WBC) count Ordered By: Pineda Morrison on 03-13-2025 WBC (Bld) [#/Vol] 6.3 10*3/uL 4.4-11.0 [facility] Anion gap in Serum or Plasma Ordered By: Katie Bah on 03-05-2025 Anion gap [Moles/Vol] 11 mmol/L - [facility] BUN/creatinine ratioOrdered By: Katie Bah on 03-05-2025 Urea nitrogen/Creatinine [Mass ratio] 31.2 mg/mg High 06-11 [facility] Basic Metabolic Profile (BMP )on 03-05-2025 BUN/CRE 31.2 RATIO High 06-11 [facility] Comment on above: Performed By: #### L 500.2500, L501.5200, L100.0600 ####[facility] [address] [place], [address] Calcium [Mass/Vol] 9.2 mg/dL Normal 7.6-11.0 [facility] Comment on above: Performed By: #### L 500.2500, L501.5200, L100.0600 ####[facility] [address] [place], [address] Chloride [Moles/Vol] 102 mmol/L Normal 98-108 [facility] Comment on above: Performed By: #### L 500.2500, L501.5200, L100.0600 ####[facility] [address] [place], [address] CO2 [Moles/Vol] 21.2 mmol/L Normal 21.0-32.0 [facility] Comment on above: Performed By: #### L 500.2500, L501.5200, L100.0600 ####[facility] [address] [place], [address] Creatinine [Mass/Vol] 0.54 mg/dL Low 0.70-1.20 [facility] Comment on above: Performed By: #### L 500.2500, L501.5200, L100.0600 ####[facility] [address] [place], [address] ECRCL 50.99 ml/min Normal 50-250 [facility] Comment on above: Performed By: #### L 500.2500, L501.5200, L100.0600 ####[facility] [address] [place], [address] GAP 11 Normal 5-15 [facility] Comment on above: Performed By: #### L 500.2500, L501.5200, L100.0600 ####[facility] [address] [place], [address] GFR/1.73 sq M.predicted among non-blacks MDRD (S/P/Bld) [Vol rate/Area] 95 mL/min/{1.73_m2} Normal >60 [facility] Comment on above: Result Comment: mL/m in/1.73m2 CKD-EPI Creatinine Equation (2020) Performed By: #### L 500.2500, L501.5200, L100.0600 ####[facility] [address] [place], [address] Glucose [Mass/Vol] 90 mg/dL Normal 70-99 [facility] Comment on above: Performed By: #### L 500.2500, L501.5200, L100.0600 ####[facility] [address] [place], [address] Potassium [Moles/Vol] 4.1 mmol/L Normal 3.3-5.1 [facility] Comment on above: Performed By: #### L 500.2500, L501.5200, L100.0600 ####[facility] [address] [place], [address] Sodium [Moles/Vol] 134 mmol/L Normal 133-145 [facility] Comment on above: Performed By: #### L 500.2500, L501.5200, L100.0600 ####[facility] [address] [place], [address] Urea nitrogen [Mass/Vol] 17 mg/dL Normal 4-19 [facility] Comment on above: Performed By: #### L 500.2500, L501.5200, L100.0600 ####[facility] [address] [place], [address] Carbon dioxide, total [Moles /volume] in Central venous bloodOrdered By: Katie Bah on 03-05-2025 CO2 [Moles/Vol] 21.2 mmol/L 21.0-32.0 [facility] Chloride assayOrdered By: Shahida iam Olvin on 03-05-2025 Chloride [Moles/Vol] 102 mmol/L 98-108 [facility] Glomerular filtration rate ( GFR) estimation/1.73 sq m using serum, plasma, or whole bOrdered By: Katie Olvin on 03-05-2025 GFR/1.73 sq M.predicted among non-blacks MDRD (S/P/Bld) [Vol rate/Area] 95 mL/min/{1.73_m2} >60 [facility] Comment on above: mL/min/1.73m2 CKD-EP I Creatinine Equation (2020) HH, Hemoglobin AND Hematocri ton 03-05-2025 Hematocrit (Bld) [Volume fraction] 27.0 % Low 37-47 [facility] Comment on above: Performed By: #### L 500.2500, L501.5200, L100.0600 ####[facility] [address] [place], [address] Hemoglobin (Bld) [Mass/Vol] 9.5 g/dL Low 12.0-15.0 [facility] Comment on above: Performed By: #### L 500.2500, L501.5200, L100.0600 ####[facility] [address] [place], [address] Hematocrit Auto (Bld) [Volum e fraction]Ordered By: Katie Bah on 03-05-2025 Hematocrit (Bld) [Volume fraction] 27.0 % Low 37-47 [facility] Hemoglobin measurementOrdere d By: Katie Bah on 03-05-2025 Hemoglobin (Bld) [Mass/Vol] 9.5 g/dL Low 12.0-15.0 [facility] Magnesiumon 03-05-2025 Magnesium [Mass/Vol] 1.9 mg/dL Normal 1.5-2.2 [facility] Comment on above: Performed By: #### L 500.2500, L501.5200, L100.0600 ####[facility] [address] [place], [address] Magnesium measurement (mass/ volume)Ordered By: Katie Olvin on 03-05-2025 Magnesium (Unsp spec) [Mass/Vol] 1.9 mg/dL 1.5-2.2 [facility] Potassium measurement (mass/ volume)Ordered By: Katie Olvin on 03-05-2025 Potassium (Unsp spec) [Mass/Vol] 4.1 mmol/L 3.3-5.1 [facility] Serum creatinine measurement (mass/volume)Ordered By: Katie Olvin on 03-05-2025 Creatinine [Mass/Vol] 0.54 mg/dL Low 0.70-1.20 [facility] Serum glucose measurement (m ass/volume)Ordered By: Katie Olvin on 03-05-2025 Glucose [Mass/Vol] 90 mg/dL 70-99 [facility] Serum or plasma calcium sabino urement (mass/volume)Ordered By: Katie Olvin on 03-05-2025 Calcium [Mass/Vol] 9.2 mg/dL 7.6-11.0 [facility] Serum or plasma urea nitroge n measurement (mass/volume)Ordered By: Katie Olvin on 03-05-2025 Urea nitrogen [Mass/Vol] 17 mg/dL 4-19 [facility] Sodium levelOrdered By: Katie Olvin on 03-05-2025 Sodium [Moles/Vol] 134 mmol/L 133-145 [facility] Bedside Glucoseon 03-03-2025 FINGERSTICK GLU 175 mg/dL High 74-106 [facility] Comment on above: Result Comment: MARINA GEMENT OF PATIENT CARE PER NURSING PROTOCOL Performed By: #### L 501.080 ####[facility] [address] [place], [address] FINGERSTICK GLU 125 mg/dL High 74-106 [facility] Comment on above: Result Comment: MARINA GEMENT OF PATIENT CARE PER NURSING PROTOCOL Performed By: #### L 501.080 ####[facility] [address] [place], [place], [id number] Glucose measurement at [facility] deOrdered By: Katie Bah on 03-03-2025 Glucose [Mass/Vol] 175 mg/dL High 74-106 [facility] Comment on above: MANAGEMENT OF PATIEN T CARE PER NURSING PROTOCOL Bedside Glucoseon 03-02-2025 FINGERSTICK GLU 133 mg/dL High 74-106 [facility] Comment on above: Result Comment: MARINA GEMENT OF PATIENT CARE PER NURSING PROTOCOL Performed By: #### L 501.080 ####[facility] [address] [facility] [address] FINGERSTICK GLU 119 mg/dL High 74-106 [facility] Comment on above: Result Comment: MARINA GEMENT OF PATIENT CARE PER NURSING PROTOCOL Performed By: #### L 501.080 ####[facility] [address] [facility] [address] Femur Min 2 Viewson 03-02-20 25 Femur Min 2 Views Normal [facility] Pelvis 1 or 2 Viewson 2024 Pelvis 1 or 2 Views Normal [facility] Bedside Glucoseon 03-01-2025 FINGERSTICK GLU 157 mg/dL High 74-106 [facility] Comment on above: Result Comment: MARINA GEMENT OF PATIENT CARE PER NURSING PROTOCOL Performed By: #### L 501.080 ####[facility] [address] [place], [address] FINGERSTICK GLU 115 mg/dL High 74-106 [facility] Comment on above: Result Comment: MARINA GEMENT OF PATIENT CARE PER NURSING PROTOCOL Performed By: #### L 501.080 ####[facility] [address] [place], [address] Venous Duplex US, Unilateral on 03-01-2025 Venous Duplex US, Unilateral Normal [facility] Venous duplex ultrasound rep ortOrdered By: Baldev Kaba on 03-01-2025 US Vein [facility] [address] [place] [address] Venous Duplex US, Unilateral 03/01/25 1257 MR#: [id number] Acct: [id number] Name: SHASHI OSWALD Rep #:[id number] : 1945 79 From: Baldev Guajardo Attending Dr: Dr. Katie Bah DO [...] ~ Date Dictated: 03/01/25 1257 Date Transcribed: 07/10/25 1607 Pelletizer: Signed [facility] Work Phone: Bedside Glucoseon 02-28-2025 FINGERSTICK GLU 106 mg/dL Normal 74-106 [facility] Comment on above: Result Comment: MARINA GEMENT OF PATIENT CARE PER NURSING PROTOCOL Performed By: #### L 501.080 ####[facility] [address] [place], [address] Bedside Glucoseon 02-27-2025 FINGERSTICK GLU 112 mg/dL High 74-106 [facility] Comment on above: Result Comment: MARINA GEMENT OF PATIENT CARE PER NURSING PROTOCOL Performed By: #### L 501.080 ####[facility] [address] [place], [address] FINGERSTICK GLU 131 mg/dL High 74-106 [facility] Comment on above: Result Comment: MARINA GEMENT OF PATIENT CARE PER NURSING PROTOCOL Performed By: #### L 501.080 ####[facility] [address] [place], [address] Echocardiogram study reportO rdered By: Steve Werner on 02-27-2025 Study report [facility] [address] [place] [address] Echo Complete 02/27/25 1028 MR#: [id number] Acct: [id number] Name: SHASHI OSWALD Rep #:[id number] : 1945 79 From: Steve Guajardo Attending Dr: Dr. Katie Bah, DO [...] Dictated: 02/27/25 1028 Date Transcribed: 02/27/25 144 Pelletizer: Signed [facility] Work Phone: Basic Metabolic Profile (BMP )on 02-26-2025 BUN/CRE 23.8 RATIO High 10-20 [facility] Comment on above: Performed By: #### L 503.0106, L100.0600, L500.2500 ####[facility] [address] [place], [address] Calcium [Mass/Vol] 8.6 mg/dL Normal 7.6-11.0 [facility] Comment on above: Performed By: #### L 503.0106, L100.0600, L500.2500 ####[facility] [address] [place], [address] Chloride [Moles/Vol] 101 mmol/L Normal 98-108 [facility] Comment on above: Performed By: #### L 503.0106, L100.0600, L500.2500 ####[facility] [address] [place], [address] CO2 [Moles/Vol] 25.0 mmol/L Normal 21.0-32.0 [facility] Comment on above: Performed By: #### L 503.0106, L100.0600, L500.2500 ####[facility] [address] [place] [place], [address] Creatinine [Mass/Vol] 0.52 mg/dL Low 0.70-1.20 [facility] Comment on above: Performed By: #### L 503.0106, L100.0600, L500.2500 ####[facility] [address] [place], [address] ECRCL 51.41 ml/min Normal 50-250 [facility] Comment on above: Performed By: #### L 503.0106, L100.0600, L500.2500 ####[facility] [address] [place], [address] GAP 7 Normal 5-15 [facility] Comment on above: Performed By: #### L 503.0106, L100.0600, L500.2500 ####[facility] [address] [place], [address] GFR/1.73 sq M.predicted among non-blacks MDRD (S/P/Bld) [Vol rate/Area] 96 mL/min/{1.73_m2} Normal >60 [facility] Comment on above: Result Comment: mL/m in/1.73m2 CKD-EPI Creatinine Equation (2020) Performed By: #### L 503.0106, L100.0600, L500.2500 ####[facility] [address] [place], [address] Glucose [Mass/Vol] 126 mg/dL High 70-99 [facility] Comment on above: Performed By: #### L 503.0106, L100.0600, L500.2500 ####[facility] [address] [place], [address] Potassium [Moles/Vol] 3.9 mmol/L Normal 3.3-5.1 [facility] Comment on above: Performed By: #### L 503.0106, L100.0600, L500.2500 ####[facility] [address] [place], [address] Sodium [Moles/Vol] 133 mmol/L Normal 133-145 [facility] Comment on above: Performed By: #### L 503.0106, L100.0600, L500.2500 ####[facility] [address] [place], [address] Urea nitrogen [Mass/Vol] 12 mg/dL Normal 4-19 [facility] Comment on above: Performed By: #### L 503.0106, L100.0600, L500.2500 ####[facility] [address] [place], [address] Bedside Glucoseon 02-26-2025 FINGERSTICK GLU 142 mg/dL High 74-106 [facility] Comment on above: Result Comment: MARINA GEMENT OF PATIENT CARE PER NURSING PROTOCOL Performed By: #### L 501.080 ####[facility] [address] [place], [address] FINGERSTICK GLU 121 mg/dL High 74-106 [facility] Comment on above: Result Comment: MARINA GEMENT OF PATIENT CARE PER NURSING PROTOCOL Performed By: #### L 501.080 ####[facility] [address] [place], [address] Echo Completeon 02-26-2025 Echo Complete Normal [facility] Electrocardiogram reportOrde red By: Steve Werner on 02-26-2025 EKG study [facility] [address] [place] [address] 12 Lead EKG 02/23/25 1235 MR#: [id number] Acct: [id number] Name: SHASHI OSWALD Rep #:[id number] : 1945 79 From: Steve Werner MD [...] needs review Confirmed by STEVE WERNER MD ([id number]), heat sealing machine operator CHIOMA ARRIAZA ([id number]) on 02/26/2025 1:19:46 PM Referred By: Katie Bah Confirmed By: STEVE WERNER MD 02/26/25 1319 Date _ Steve Werner MD CC: Dr. Katie Bah DO; Dr. Candelario Santana MD ~ Signed [facility] Work Phone: HH, Hemoglobin AND Hematocri ton 02-26-2025 Hematocrit (Bld) [Volume fraction] 24.4 % Low 37-47 [facility] Comment on above: Performed By: #### L 503.0106, L100.0600, L500.2500 ####[facility] [address] [place], [place], [address] Hemoglobin (Bld) [Mass/Vol] 8.4 g/dL Low 12.0-15.0 [facility] Comment on above: Performed By: #### L 503.0106, L100.0600, L500.2500 ####[facility] [address] [place], [address] Vitamin B12on 02-26-2025 Cobalamin (Vitamin B12) [Mass/Vol] 366 pg/mL Normal 180-914 [facility] Comment on above: Performed By: #### L 503.0106, L100.0600, L500.2500 ####[facility] [address] [place], [address] Vitamin B12 ser/plasOrdered By: Katie Bah on 02-26-2025 Cobalamin (Vitamin B12) [Mass/Vol] 366 pg/mL 180-914 [facility] Bedside Glucoseon 02-25-2025 FINGERSTICK GLU 184 mg/dL High 74-106 [facility] Comment on above: Result Comment: MARINA GEMENT OF PATIENT CARE PER NURSING PROTOCOL Performed By: #### L 501.080 ####[facility] [address] [place], [address] FINGERSTICK GLU 121 mg/dL High 74-106 [facility] Comment on above: Result Comment: MARINA GEMENT OF PATIENT CARE PER NURSING PROTOCOL Performed By: #### L 501.080 ####[facility] [address] [place], [address] FINGERSTICK GLU 214 mg/dL High 74-106 [facility] Comment on above: Result Comment: MARINA GEMENT OF PATIENT CARE PER NURSING PROTOCOL Performed By: #### L 501.080 ####[facility] [address] [place], [address] FINGERSTICK GLU 141 mg/dL High 74-106 [facility] Comment on above: Result Comment: MARINA GEMENT OF PATIENT CARE PER NURSING PROTOCOL Performed By: #### L 501.080 ####[facility] [address] [place], [address] Urine Cultureon 02-25-2025 URC Normal [facility] Comment on above: Performed By: #### L 400.0001, M100.2200 ####[facility] [address] [place], [address] Bedside Glucoseon 02-24-2025 FINGERSTICK GLU 199 mg/dL High 74-106 [facility] Comment on above: Result Comment: MARINA GEMENT OF PATIENT CARE PER NURSING PROTOCOL Performed By: #### L 501.080 ####[facility] [address] [place], [address] FINGERSTICK GLU 152 mg/dL High 74-106 [facility] Comment on above: Result Comment: MARINA GEMENT OF PATIENT CARE PER NURSING PROTOCOL Performed By: #### L 501.080 ####[facility] [address] [facility] [address] FINGERSTICK GLU 196 mg/dL High -106 [facility] Comment on above: Result Comment: MARINA GEMENT OF PATIENT CARE PER NURSING PROTOCOL Performed By: #### L 501.080 ####[facility] [address] [place], [address] FINGERSTICK GLU 147 mg/dL High -106 [facility] Comment on above: Result Comment: MARINA GEMENT OF PATIENT CARE PER NURSING PROTOCOL Performed By: #### L 501.080 ####[facility] [address] [place], [address] 12 Lead EKGon 02-23-2025 12 Lead EKG Normal [facility] Bedside Glucoseon 02-23-2025 FINGERSTICK GLU 162 mg/dL High 74-106 [facility] Comment on above: Result Comment: MARINA GEMENT OF PATIENT CARE PER NURSING PROTOCOL Performed By: #### L 501.080 ####[facility] [address] [place], [address] FINGERSTICK GLU 183 mg/dL High [facility]106 [facility] Comment on above: Result Comment: MARINA GEMENT OF PATIENT CARE PER NURSING PROTOCOL Performed By: #### L 501.080 ####[facility] [address] [place], [address] FINGERSTICK GLU 185 mg/dL High 74-106 [facility] Comment on above: Result Comment: MARINA GEMENT OF PATIENT CARE PER NURSING PROTOCOL Performed By: #### L 501.080 ####[facility] [address] [place], [place], [id number] FINGERSTICK GLU 153 mg/dL High 74-106 [facility] Comment on above: Result Comment: MARINA GEMENT OF PATIENT CARE PER NURSING PROTOCOL Performed By: #### L 501.080 ####[facility] [address] [place], [place], [id number] Bilirubin Test strip Ql (U)O rdered By: Katie Bah on 02-23-2025 Bilirubin Ql (U) Negative Negative [facility] Ketones Test strip Ql (U)Ord ered By: Katie Bah on 02-23-2025 Ketones Ql (U) Negative Negative [facility] Microscopic analysis of urin e for red blood cells (RBC)Ordered By: Katie Bah on 02-23-2025 Microscopic analysis of urine for red blood cells (RBC) 0 SEEN /hpf 0-5 [facility] Mucus LM Ql (Urine sed)Order ed By: Katie Bah on 02-23-2025 Mucus Ql (Urine sed) 0 SEEN /hpf [facility] Nitrite Test strip Ql (U)Ord ered By: Katie Bah on 02-23-2025 Nitrite Ql (U) Negative Negative [facility] Protein Test strip Ql (U)Ord ered By: Katie Bah on 02-23-2025 Protein Ql (U) 30 mg/dl High Negative [facility] Squamous epithelial cells de tection in urine sediment by light microscopyOrdered By: Katie Bah on 02-23-2025 Epithelial cells.squamous LM Ql (Urine sed) 0 SEEN /hpf 5-10 [facility] Urinalysis, Completeon 02-23 BACTERIA 1+ /hpf Normal None Seen [facility] Comment on above: Order Comment: BLADD ER TAP Performed By: #### L 400.0001, M100.2200 ####[facility] [address] [place], [address] WBC 0-5 SEEN Normal 0-5 [facility] Comment on above: Order Comment: BLADD ER TAP Performed By: #### L 400.0001, M100.2200 ####[facility] [address] [place], [address] EPI,SQUAMOUS 0 SEEN Normal 5-10 [facility] Comment on above: Order Comment: BLADD ER TAP Performed By: #### L 400.0001, M100.2200 ####[facility] [address] [place], [address] Mucus Ql (Urine sed) [address] [facility] Comment on above: Order Comment: BLADD ER TAP Performed By: #### L 400.0001, M100.0 ####[facility] [address] [place], [address] RBC 0 SEEN Normal 0-5 [facility] Comment on above: Order Comment: BLADD ER TAP Performed By: #### L 400.0001, M1.0 ####[facility] [address] [place], [address] RBC 0-5 SEEN Normal 0-5 [facility] Comment on above: Order Comment: CLEAN CATCH Performed By: #### L 400.0001 ####[facility] [address] [place], [address] WBC 25-50 SEEN Normal 0-5 [facility] Comment on above: Order Comment: CLEAN CATCH Performed By: #### L 400.0001 ####[facility] [address] [place], [address] BACTERIA 3+ /hpf Normal None Seen [facility] Comment on above: Order Comment: CLEAN CATCH Performed By: #### L 400.0001 ####[facility] [address] [place], [address] EPI,SQUAMOUS 0-5 SEEN Normal 5-10 [facility] Comment on above: Order Comment: CLEAN CATCH Performed By: #### L 400.0001 ####[facility] [address] [place], [address] Urine clarityOrdered By: Joya Bah on 02-23-2025 Clarity (U) Clear Clear [facility] Urine color determinationOrd ered By: Katie Bah on 02-23-2025 Color (U) Yellow Yellow [facility] Urine cultureOrdered By: Joya Bah on 02-23-2025 Bacteria identified Cx Nom (U) Escherichia coli Abnormal [facility] Urine glucose detectionOrder ed By: Katie Bah on 02-23-2025 Glucose Ql (U) 50 mg/dl High Normal [facility] Urine leukocyte esterase det ection by dipstickOrdered By: Katie Bah on 02-23-2025 Leukocyte esterase Test strip Ql (U) 100 /ul High Negative [facility] Urine pHOrdered By: Katie hanna on 02-23-2025 pH (U) 7.0 [pH] 5.0 - 8.0 [facility] Urine sediment bacteria coun t by microscopy (number/high power field)Ordered By: Katie Bah on 02-23-2025 Bacteria LM.HPF (Urine sed) [#/Area] 1 /[HPF] None Seen [facility] Urine specific gravity measu rementOrdered By: Katie Bah on 02-23-2025 Specific gravity (U) [Rel density] 1.010 1.002-1.030 [facility] Urine urobilinogen measureme ntOrdered By: Katie Bah on 02-23-2025 Urobilinogen Ql (U) Normal mg/dl Normal [facility] White blood cell countOrdere d By: Katie Bah on 02-23-2025 White blood cell count 0-5 SEEN /hpf 0-5 [facility] Absolute lymphocyte countOrd ered By: Katie Bah on 02-22-2025 Lymphocytes Auto (Unsp spec) [#/Vol] 1.94 10*3/uL 0.83-4.51 [facility] Absolute neutrophil countOrd ered By: Katie Bah on 02-22-2025 Neutrophils (Bld) [#/Vol] 5.3 10*3/uL 2.0-7.7 [facility] Automated lymphocyte count a s percentage of total leukocytesOrdered By: Katie Bah on 02-22-2025 Lymphocytes/100 WBC Auto (Unsp spec) 23.7 % 19-41 [facility] Basophil percentageOrdered B y: Katie Bah on 02-22-2025 Basophils/100 WBC (Bld) 0.4 % 0-1 [facility] Bedside Glucoseon 02-22-2025 FINGERSTICK GLU 182 mg/dL High [address] [place] [address] Comment on above: Result Comment: MARINA GEMENT OF PATIENT CARE PER NURSING PROTOCOL Performed By: #### L 501.080 ####[facility] [address] [place], [address] FINGERSTICK GLU 195 mg/dL [address] Comment on above: Result Comment: MARINA GEMENT OF PATIENT CARE PER NURSING PROTOCOL Performed By: #### L 501.080 ####[facility] [address] [place], [address] FINGERSTICK GLU 254 mg/dL [address] Comment on above: Result Comment: MARINA GEMENT OF PATIENT CARE PER NURSING PROTOCOL Performed By: #### L 501.080 ####[facility] [address] [place], [address] FINGERSTICK GLU 189 mg/dL [address] Comment on above: Result Comment: MARINA GEMENT OF PATIENT CARE PER NURSING PROTOCOL Performed By: #### L 501.080 ####[facility] [address] [place], [address] Bilirubin, totalOrdered By: Katie Bah on 02-22-2025 Bilirubin [Mass/Vol] 1.00 mg/dL 0.00-1.30 [facility] CBC W/Diff, Automatedon Absolute Lymph 1.94 X10 3/uL Normal 0.83-4.51 [facility] Comment on above: Performed By: #### L 501.2300, L501.5200, L100.0100, L500.4050 ####[facility] [address] [place], [address] Absolute Neut 5.3 X10 3/uL Normal 2.0-7.7 [facility] Comment on above: Performed By: #### L 501.2300, L501.5200, L100.0100, L500.4050 ####[facility] [address] [place], [address] Basophils/100 WBC (Bld) 0.4 % Normal 0-1 [facility] Comment on above: Performed By: #### L 501.2300, L501.5200, L100.0100, L500.4050 ####[facility] [address] [place], [address] Eosinophils/100 WBC (Bld) 3.0 % Normal 0-5 [facility] Comment on above: Performed By: #### L 501.2300, L501.5200, L100.0100, L500.4050 ####[facility] [address] [place], [address] Erythrocyte distribution width (RBC) [Ratio] 15.4 % High 11.6-14.6 [facility] Comment on above: Performed By: #### L 501.2300, L501.5200, L100.0100, L500.4050 ####[facility] [address] [place], [address] Hematocrit (Bld) [Volume fraction] 24.1 % Low 37-47 [facility] Comment on above: Performed By: #### L 501.2300, L501.5200, L100.0100, L500.4050 ####[facility] [address] [place], [address] Hemoglobin (Bld) [Mass/Vol] 8.5 g/dL Low 12.0-15.0 [facility] Comment on above: Performed By: #### L 501.2300, L501.5200, L100.0100, L500.4050 ####[facility] [address] [place], [address] IG% 0.700 Normal 0.0-0.9 [facility] Comment on above: Result Comment: IG% - Immature Granulocytes (promyelocytes, myelocytes andmetamyelocytes) > 1% indicates that a LEFT SHIFT is Present. Performed By: #### L 501.2300, L501.5200, L100.0100, L500.4050 ####[facility] [address] [place], [address] Lymphocytes/100 WBC (Bld) 23.7 % Normal 19-41 [facility] Comment on above: Performed By: #### L 501.2300, L501.5200, L100.0100, L500.4050 ####[facility] [address] [place], [address] MCH (RBC) [Entitic mass] 31.5 pg Normal 27.0-32.0 [facility] Comment on above: Performed By: #### L 501.2300, L501.5200, L100.0100, L500.4050 ####[facility] [address] [place], [address] MCHC (RBC) [Mass/Vol] 35.3 g/dL Normal 32-36 [facility] Comment on above: Performed By: #### L 501.2300, L501.5200, L100.0100, L500.4050 ####[facility] [address] [place], [address] MCV (RBC) [Entitic vol] 89.3 fL Normal 81-99 [facility] Comment on above: Performed By: #### L 501.2300, L501.5200, L100.0100, L500.4050 ####[facility] [address] [place], [address] Monocytes/100 WBC (Bld) 7.2 % Normal 0-10 [facility] Comment on above: Performed By: #### L 501.2300, L501.5200, L100.0100, L500.4050 ####[facility] [address] [place], [address] Neutrophils/100 WBC (Bld) 65.0 % Normal 47-70 [facility] Comment on above: Performed By: #### L 501.2300, L501.5200, L100.0100, L500.4050 ####[facility] [address] [place], [address] Nucleated RBC (Bld) [#/Vol] 0 10*3/uL Normal 0-5 [facility] Comment on above: Performed By: #### L 501.2300, L501.5200, L100.0100, L500.4050 ####[facility] [address] [place], [address] Platelet mean volume (Bld) [Entitic vol] 8.8 fL Normal 6.2-12.0 [facility] Comment on above: Performed By: #### L 501.2300, L501.5200, L100.0100, L500.4050 ####[facility] [address] [place], [address] Platelets (Bld) [#/Vol] 282 10*3/uL Normal 150-450 [facility] Comment on above: Performed By: #### L 501.2300, L501.5200, L100.0100, L500.4050 ####[facility] [address] [place], [address] RBC (Bld) [#/Vol] 2.70 10*6/uL Low 4.2-5.4 [facility] Comment on above: Performed By: #### L 501.2300, L501.5200, L100.0100, L500.4050 ####[facility] [address] [place], [address] RDW SD 49.5 fl High 35.1-43.9 [facility] Comment on above: Performed By: #### L 501.2300, L501.5200, L100.0100, L500.4050 ####[facility] [address] [place], [address] WBC (Bld) [#/Vol] 8.2 10*3/uL Normal 4.4-11.0 [facility] Comment on above: Performed By: #### L 501.2300, L501.5200, L100.0100, L500.4050 ####[facility] [address] [place], [address] Comprehensive Metabolic [facility] 02-22-2025 Albumin [Mass/Vol] 2.6 g/dL Low 3.4-4.8 [facility] Comment on above: Performed By: #### L 501.2300, L501.5200, L100.0100, L500.4050 ####[facility] [address] [place], [address] Albumin/Globulin [Mass ratio] 0.9 {ratio} Normal 0.9-2.4 [facility] Comment on above: Performed By: #### L 501.2300, L501.5200, L100.0100, L500.4050 ####[facility] [address] [place], [address] ALK PHOS 106 U/L High 35-104 [facility] Comment on above: Performed By: #### L 501.2300, L501.5200, L100.0100, L500.4050 ####[facility] [address] [place], [address] ALT [Catalytic activity/Vol] U/L Normal <=34 [facility] Comment on above: Performed By: #### L 501.2300, L501.5200, L100.0100, L500.4050 ####[facility] [address] [place], [address] AST [Catalytic activity/Vol] 31 U/L Normal <=31 [facility] Comment on above: Performed By: #### L 501.2300, L501.5200, L100.0100, L500.4050 ####[facility] [address] [place], [address] Bilirubin [Mass/Vol] 1.00 mg/dL Normal 0.00-1.30 [facility] Comment on above: Performed By: #### L 501.2300, L501.5200, L100.0100, L500.4050 ####[facility] [address] [place], [address] BUN/CRE 32.5 RATIO High 10-20 [facility] Comment on above: Performed By: #### L 501.2300, L501.5200, L100.0100, L500.4050 ####[facility] [address] [place], [address] Calcium [Mass/Vol] 8.6 mg/dL Normal 7.6-11.0 [facility] Comment on above: Performed By: #### L 501.2300, L501.5200, L100.0100, L500.4050 ####[facility] [address] [place], [address] Chloride [Moles/Vol] 99 mmol/L Normal 98-108 [facility] Comment on above: Performed By: #### L 501.2300, L501.5200, L100.0100, L500.4050 ####[facility] [address] [place], [address] CO2 [Moles/Vol] 23.6 mmol/L Normal 21.0-32.0 [facility] Comment on above: Performed By: #### L 501.2300, L501.5200, L100.0100, L500.4050 ####[facility] [address] [place], [address] Creatinine [Mass/Vol] 0.47 mg/dL Low 0.70-1.20 [facility] Comment on above: Performed By: #### L 501.2300, L501.5200, L100.0100, L500.4050 ####[facility] [address] [place], [address] ECRCL 51.41 ml/min Normal 50-250 [facility] Comment on above: Performed By: #### L 501.2300, L501.5200, L100.0100, L500.4050 ####[facility] [address] [place], [address] GAP 8 Normal 5-15 [facility] Comment on above: Performed By: #### L 501.2300, L501.5200, L100.0100, L500.4050 ####[facility] [address] [place], [address] GFR/1.73 sq M.predicted among non-blacks MDRD (S/P/Bld) [Vol rate/Area] 98 mL/min/{1.73_m2} Normal >60 [facility] Comment on above: Result Comment: mL/m in/1.73m2 CKD-EPI Creatinine Equation (2020) Performed By: #### L 501.2300, L501.5200, L100.0100, L500.4050 ####[facility] [address] [place], [address] Globulin (S) [Mass/Vol] 3.0 g/dL Normal 2.2-4.2 [facility] Comment on above: Performed By: #### L 501.2300, L501.5200, L100.0100, L500.4050 ####[facility] [address] [place], [address] Glucose [Mass/Vol] 203 mg/dL High 70-99 [facility] Comment on above: Performed By: #### L 501.2300, L501.5200, L100.0100, L500.4050 ####[facility] [address] [place], [address] Potassium [Moles/Vol] 4.1 mmol/L Normal 3.3-5.1 [facility] Comment on above: Performed By: #### L 501.2300, L501.5200, L100.0100, L500.4050 ####[facility] [address] [place], [address] Sodium [Moles/Vol] 131 mmol/L Low 133-145 [facility] Comment on above: Performed By: #### L 501.2300, L501.5200, L100.0100, L500.4050 ####[facility] [address] [place], [address] T PROT 5.6 g/dL Low 5.9-8.4 [facility] Comment on above: Performed By: #### L 501.2300, L501.5200, L100.0100, L500.4050 ####[facility] [address] [place], [address] Urea nitrogen [Mass/Vol] 15 mg/dL Normal 4-19 [facility] Comment on above: Performed By: #### L 501.2300, L501.5200, L100.0100, L500.4050 ####[facility] [address] [place], [place], [address] Eosinophil percentageOrdered By: Katie Bah on 02-22-2025 Eosinophils/100 WBC (Bld) 3.0 % 0-5 [facility] Erythrocyte distribution wid th ratioOrdered By: Katie Bah on 02-22-2025 Erythrocyte distribution width (RBC) [Ratio] 15.4 % High 11.6-14.6 [facility] Erythrocyte distribution wid th standard deviationOrdered By: Katie Bah on 02-22-2025 Erythrocyte distribution width (RBC) [Ratio] 49.5 fl High 35.1-43.9 [facility] Ferritinon 02-22-2025 Ferritin [Mass/Vol] 217 ng/mL Normal 22-378 [facility] Comment on above: Performed By: #### L 503.6030, L503.2859 ####[facility] [address] [place], [address] Immature granulocytes/100 WB C Auto (Bld)Ordered By: Katie Kimjaquan on 02-22-2025 Immature granulocytes/100 WBC (Bld) 0.700 % 0.0-0.9 [facility] Comment on above: IG% - Immature Granu locytes (promyelocytes, myelocytes and metamyelocytes) > 1% indicates that a LEFT SHIFT is Present. Iron measurement (mass/mass) Ordered By: Katie Kimjaquan on 02-22-2025 Iron (Unsp spec) [Mass/Mass] 69 ug/dL 50-170 [facility] Iron+Iron Binding Capacityon 02-22-2025 TIBC 197 ug/dL Low 250-450 [facility] Comment on above: Performed By: #### L 503.6030, L503.8650 ####[facility] [address] [place], [place], [id number] Laboratory - Chemistry and C hemistry - challengeOrdered By: Katie Kimjaquan on 02-22-2025 AST [Catalytic activity/Vol] 31 U/L <32 [facility] MCV (mean corpuscular volume ) determinationOrdered By: Katie Olvin on 02-22-2025 MCV (RBC) [Entitic vol] 89.3 fL 81-99 [facility] Magnesiumon 02-22-2025 Magnesium [Mass/Vol] 1.5 mg/dL Normal 1.5-2.2 [facility] Comment on above: Performed By: #### L 501.2300, L501.5200, L100.0100, L500.4050 ####[facility] [address] [place], [address] Mean corpuscular hemoglobin (MCH) determinationOrdered By: Katie Bah on 02-22-2025 MCH (RBC) [Entitic mass] 31.5 pg 27.0-32.0 [facility] Mean corpuscular hemoglobin concentration (MCHC) determinationOrdered By: Katie Bah on 02-22-2025 MCHC (RBC) [Mass/Vol] 35.3 g/dL 32-36 [facility] Mean platelet volume determi nationOrdered By: Katie Bah on 02-22-2025 Platelet mean volume (Bld) [Entitic vol] 8.8 fL 6.2-12.0 [facility] Monocyte percentageOrdered B y: Katie Bah on 02-22-2025 Monocytes/100 WBC (Bld) 7.2 % 0-10 [facility] Neutrophil percentageOrdered By: Katie Bah on 02-22-2025 Neutrophils/100 WBC (Bld) 65.0 % 47-70 [facility] No Panel InformationOrdered By: Katie Bah on 02-22-2025 Unsaturated Iron Binding Capacity 128 ug/dL Low 228-428 [facility] Nucleated red blood cell per centageOrdered By: Katie Bah on 02-22-2025 Nucleated RBC/100 WBC (Bld) [Ratio] 0 % 0-5 [facility] Osmolality urOrdered By: Joya Bah on 02-22-2025 Osmolality (U) [Osmolality] 176 mOsm/KG >50 [facility] Comment on above: Normal Urine Referen ce Ranges Random: 50 - 1200 mOsm/kg H20 depending on fluid intake Random: >850 mOsm/kg after 12 hour fluid restriction 24 hour: ~300 - 900 mOsm/kg H2O Osmolality, Serumon 02-23-20 25 OSMOLALITY,SER 283 mOsm/KG Normal 280-301 [facility] Comment on above: Performed By: #### L 501.7300 ####[facility] [address] [place], [address] Osmolality, Urineon 02-23-20 25 OSMOLALITY,UR 176 mOsm/KG Normal [facility] Comment on above: Result Comment: Norm al Urine Reference Ranges Random: 50 - 1200 mOsm/kg H20 depending on fluid intake Random: >850 mOsm/kg after 12 hour fluid restriction 24 hour: 300 - 900 mOsm/kg H2O Performed By: #### L 501.7400, L501.5500 ####[facility] [address] [place], [address] Phosphoruson 02-22-2025 Phosphate [Mass/Vol] 3.2 mg/dL Normal 2.7-4.5 [facility] Comment on above: Performed By: #### L 501.2300, L501.5200, L100.0100, L500.4050 ####[facility] [address] [place], [address] Platelet countOrdered By: Shahida Bah on 02-22-2025 Platelets (Bld) [#/Vol] 282 10*3/uL 150-450 [facility] RBC Auto (Bld) [#/Vol]Ordere d By: Katie Bah on 02-22-2025 RBC (Bld) [#/Vol] 2.70 10*6/uL Low 4.2-5.4 [facility] Serum globulin measurementOr dered By: Katie Bah on 02-22-2025 Globulin (S) [Mass/Vol] 3.0 g/dL 2.2-4.2 [facility] Serum or plasma alanine cornejo otransferase (ALT) measurementOrdered By: Katie Bah on 02-22-2025 ALT [Catalytic activity/Vol] U/L <35 [facility] Serum or plasma albumin sabino urement (mass/volume)Ordered By: Katie Bah on 02-22-2025 Albumin [Mass/Vol] 2.6 g/dL Low 3.4-4.8 [facility] Serum or plasma albumin/glob ulin mass ratioOrdered By: Katie Kimjaquan on 02-22-2025 Albumin/Globulin [Mass ratio] 0.9 {ratio} 0.9-2.4 [facility] Serum or plasma alkaline shaista sphatase measurementOrdered By: Katie Kimjaquan on 02-22-2025 ALP [Catalytic activity/Vol] 106 U/L High 35-104 [facility] Serum or plasma ferritin uzma surement (mass/volume)Ordered By: Katie Olvin on 02-22-2025 Ferritin [Mass/Vol] 217 ng/mL 22-378 [facility] Serum or plasma iron saturat ion measurement (mass fraction)Ordered By: Katie Olvin on 02-22-2025 Iron saturation [Mass fraction] 35.0 % 13-59 [facility] Stool Occult Blood iFOBon STOB Positive Normal [facility] Comment on above: Performed By: #### M 100.7900 ####[facility] [address] [place], [place], [id number] Stool gastrointestinal hemog lobin detection by immunologic methodOrdered By: Katie Kimjauqan on 02-22-2025 Lower GI hemoglobin IA Ql (Stl) Positive Abnormal [facility] Total proteinOrdered By: Joya sultana Olvin on 02-22-2025 Protein [Mass/Vol] 5.6 g/dL Low 5.9-8.4 [facility] Urinalysis, Completeon 02-22 Mucus Ql (Urine sed) [address] [facility] Comment on above: Order Comment: CLEAN CATCH Performed By: #### L 400.0001 ####[facility] [address] [place], [place], [id number] Urine Sodiumon 02-22-2025 UR NA < 20 Normal Not Establ. [facility] Comment on above: Performed By: #### L 501.7400, L501.5500 ####[facility] [address] [place], [address] Urine sodium measurement (mo les/volume)Ordered By: Katie Bah on 02-22-2025 Sodium (U) [Moles/Vol] mmol/L Not Establ. [facility] White blood cell (WBC) count Ordered By: Katie Bah on 02-22-2025 WBC (Bld) [#/Vol] 8.2 10*3/uL 4.4-11.0 [facility] Bedside Glucoseon 02-21-2025 FINGERSTICK GLU 192 mg/dL High [address] [place] [address] Comment on above: Result Comment: MARINA GEMENT OF PATIENT CARE PER NURSING PROTOCOL Performed By: #### L 501.080 ####[facility] [address] [place], [address] FINGERSTICK GLU 242 mg/dL High [address] [place] [address] Comment on above: Result Comment: MARINA GEMENT OF PATIENT CARE PER NURSING PROTOCOL Performed By: #### L 501.080 ####[facility] [address] [place], [address] FINGERSTICK GLU 245 mg/dL High [address] [place] [address] Comment on above: Result Comment: MARINA GEMENT OF PATIENT CARE PER NURSING PROTOCOL Performed By: #### L 501.080 ####[facility] [address] [place], [address] FINGERSTICK GLU 212 mg/dL [address] Comment on above: Result Comment: MARINA GEMENT OF PATIENT CARE PER NURSING PROTOCOL Performed By: #### L 501.080 ####[facility] [address] [place], [address] [facility] deOrdered By: Gia Owusu on 02-21-2025 Glucose [Mass/Vol] 245 mg/dL High [facility]106 [facility] Comment on above: MANAGEMENT OF PATIEN T CARE PER NURSING PROTOCOL Hemoglobinon 02-21-2025 Hemoglobin (Bld) [Mass/Vol] 8.6 g/dL Low 12.0-15.0 [facility] Comment on above: Performed By: #### L 100.1300 ####[facility] [address] [place], [address] Hemoglobin measurementOrdere d By: Gia Owusu on 02-21-2025 Hemoglobin (Bld) [Mass/Vol] 8.6 g/dL Low 12.0-15.0 [facility] Bedside Glucoseon 02-20-2025 FINGERSTICK GLU 209 mg/dL High 74-106 [facility] Comment on above: Result Comment: MARINA GEMENT OF PATIENT CARE PER NURSING PROTOCOL Performed By: #### L 501.080 ####[facility] [address] [place], [address] FINGERSTICK GLU 180 mg/dL High -[address] [place] [address] Comment on above: Result Comment: MARINA GEMENT OF PATIENT CARE PER NURSING PROTOCOL Performed By: #### L 501.080 ####[facility] [address] [place], [address] FINGERSTICK GLU 287 mg/dL High [address] [place] [address] Comment on above: Result Comment: MARINA GEMENT OF PATIENT CARE PER NURSING PROTOCOL Performed By: #### L 501.080 ####[facility] [address] [place], [address] FINGERSTICK GLU 161 mg/dL High [address] [place] [address] Comment on above: Result Comment: MARINA GEMENT OF PATIENT CARE PER NURSING PROTOCOL Performed By: #### L 501.080 ####[facility] [address] [place], [address] Hemoglobinon 02-20-2025 Hemoglobin (Bld) [Mass/Vol] 8.9 g/dL Low 12.0-15.0 [facility] Comment on above: Performed By: #### L 100.1300 ####[facility] [address] [place], [address] Hemoglobin (Bld) [Mass/Vol] 8.6 g/dL Low 12.0-15.0 [facility] Comment on above: Performed By: #### L 100.1300 ####[facility] [address] [place], [address] Anion gap in Serum or Plasma Ordered By: Gia Owusu on 02-19-2025 Anion gap [Moles/Vol] 10 mmol/L 5-15 [facility] BUN/creatinine ratioOrdered By: Gia Owusu on 02-19-2025 Urea nitrogen/Creatinine [Mass ratio] 23.4 mg/mg High 10-20 [facility] Basic Metabolic Profile (BMP )on 02-19-2025 BUN/CRE 23.4 RATIO High - [facility] Comment on above: Performed By: #### L 500.2500, L100.0500 ####[facility] [address] [place], [address] Calcium [Mass/Vol] 8.4 mg/dL Normal 7.6-11.0 [facility] Comment on above: Performed By: #### L 500.2500, L100.0500 ####[facility] [address] [place], [address] Chloride [Moles/Vol] 103 mmol/L Normal 98-108 [facility] Comment on above: Performed By: #### L 500.2500, L100.0500 ####[facility] [address] [place], [address] CO2 [Moles/Vol] 21.3 mmol/L Normal 21.0-32.0 [facility] Comment on above: Performed By: #### L 500.2500, L100.0500 ####[facility] [address] [place], [address] Creatinine [Mass/Vol] 0.51 mg/dL Low 0.70-1.20 [facility] Comment on above: Performed By: #### L 500.2500, L100.0500 ####[facility] [address] [place], [address] ECRCL 44.44 ml/min Low 50-250 [facility] Comment on above: Performed By: #### L 500.2500, L100.0500 ####[facility] [address] [place], [address] GAP 10 Normal 5-15 [facility] Comment on above: Performed By: #### L 500.2500, L100.0500 ####[facility] [address] [place], [address] GFR/1.73 sq M.predicted among non-blacks MDRD (S/P/Bld) [Vol rate/Area] 96 mL/min/{1.73_m2} Normal >60 [facility] Comment on above: Result Comment: mL/m in/1.73m2 CKD-EPI Creatinine Equation (2020) Performed By: #### L 500.2500, L100.0500 ####[facility] [address] [place], [address] Glucose [Mass/Vol] 165 mg/dL High 70-99 [facility] Comment on above: Performed By: #### L 500.2500, L100.0500 ####[facility] [address] [place], [address] Potassium [Moles/Vol] 3.7 mmol/L Normal 3.3-5.1 [facility] Comment on above: Result Comment: Hemo lysis present, Results??could be affected.?? Performed By: #### L 500.2500, L100.0500 ####[facility] [address] [place], [address] Sodium [Moles/Vol] 134 mmol/L Normal 133-145 [facility] Comment on above: Performed By: #### L 500.2500, L100.0500 ####[facility] [address] [place], [address] Urea nitrogen [Mass/Vol] 12 mg/dL Normal 4-19 [facility] Comment on above: Performed By: #### L 500.2500, L100.0500 ####[facility] [address] [place], [address] Bedside Glucoseon 02-19-2025 FINGERSTICK GLU 202 mg/dL High 74-106 [facility] Comment on above: Result Comment: MARINA GEMENT OF PATIENT CARE PER NURSING PROTOCOL Performed By: #### L 501.080 ####[facility] [address] [place], [address] FINGERSTICK GLU 179 mg/dL High 74-106 [facility] Comment on above: Result Comment: MARINA GEMENT OF PATIENT CARE PER NURSING PROTOCOL Performed By: #### L 501.080 ####[facility] [address] [place], [address] FINGERSTICK GLU 276 mg/dL High 74-106 [facility] Comment on above: Result Comment: MARINA GEMENT OF PATIENT CARE PER NURSING PROTOCOL Performed By: #### L 501.080 ####[facility] [address] [place], [address] FINGERSTICK GLU 162 mg/dL High 74-106 [facility] Comment on above: Result Comment: MARINA GEMENT OF PATIENT CARE PER NURSING PROTOCOL Performed By: #### L 501.080 ####[facility] [address] [place], [address] CBC-Complete Blood Cnt No Di ffon 02-19-2025 Erythrocyte distribution width (RBC) [Ratio] 15.2 % High 11.6-14.6 [facility] Comment on above: Performed By: #### L 500.2500, L100.0500 ####[facility] [address] [place], [address] Hematocrit (Bld) [Volume fraction] 26.2 % Low 37-47 [facility] Comment on above: Performed By: #### L 500.2500, L100.0500 ####[facility] [address] [place], [address] Hemoglobin (Bld) [Mass/Vol] 9.1 g/dL Low 12.0-15.0 [facility] Comment on above: Performed By: #### L 500.2500, L100.0500 ####[facility] [address] [place], [address] MCH (RBC) [Entitic mass] 30.8 pg Normal 27.0-32.0 [facility] Comment on above: Performed By: #### L 500.2500, L100.0500 ####[facility] [address] [place], [address] MCHC (RBC) [Mass/Vol] 34.7 g/dL Normal 32-36 [facility] Comment on above: Performed By: #### L 500.2500, L100.0500 ####[facility] [address] [place], [address] MCV (RBC) [Entitic vol] 88.8 fL Normal 81-99 [facility] Comment on above: Performed By: #### L 500.2500, L100.0500 ####[facility] [address] [place], [address] Platelet mean volume (Bld) [Entitic vol] 9.6 fL Normal 6.2-12.0 [facility] Comment on above: Performed By: #### L 500.2500, L100.0500 ####[facility] [address] [place], [address] Platelets (Bld) [#/Vol] 262 10*3/uL Normal 150-450 [facility] Comment on above: Performed By: #### L 500.2500, L100.0500 ####[facility] [address] [place], [address] RBC (Bld) [#/Vol] 2.95 10*6/uL Low 4.2-5.4 [facility] Comment on above: Performed By: #### L 500.2500, L100.0500 ####[facility] [address] [place], [address] RDW SD 47.0 fl High 35.1-43.9 [facility] Comment on above: Performed By: #### L 500.2500, L100.0500 ####[facility] [address] [place], [address] WBC (Bld) [#/Vol] 10.0 10*3/uL Normal 4.4-11.0 [facility] Comment on above: Performed By: #### L 500.2500, L100.0500 ####[facility] [address] [place], [address] Carbon dioxide, total [Moles /volume] in Central venous bloodOrdered By: Gia Owusu on 02-19-2025 CO2 [Moles/Vol] 21.3 mmol/L 21.0-32.0 [facility] Chloride assayOrdered By: Ahsan Owusu on 02-19-2025 Chloride [Moles/Vol] 103 mmol/L 98-108 [facility] Erythrocyte distribution wid th ratioOrdered By: Gia Owusu on 02-19-2025 Erythrocyte distribution width (RBC) [Ratio] 15.2 % High 11.6-14.6 [facility] Erythrocyte distribution wid th standard deviationOrdered By: Gia Owusu on 02-19-2025 Erythrocyte distribution width (RBC) [Ratio] 47.0 fl High 35.1-43.9 [facility] Glomerular filtration rate ( GFR) estimation/1.73 sq m using serum, plasma, or whole bOrdered By: Gia Owusu on 02-19-2025 GFR/1.73 sq M.predicted among non-blacks MDRD (S/P/Bld) [Vol rate/Area] 96 mL/min/{1.73_m2} >60 [facility] Comment on above: mL/min/1.73m2 CKD-EP I Creatinine Equation (2020) Hematocrit Auto (Bld) [Volum e fraction]Ordered By: Gia Owusu on 02-19-2025 Hematocrit (Bld) [Volume fraction] 26.2 % Low 37-47 [facility] MCV (mean corpuscular volume ) determinationOrdered By: Gia Owusu on 02-19-2025 MCV (RBC) [Entitic vol] 88.8 fL 81-99 [facility] MR/[id number] 02-19-2025 MR/POSTOPAN2 Normal [facility] Mean corpuscular hemoglobin (MCH) determinationOrdered By: Gia Owusu on 02-19-2025 MCH (RBC) [Entitic mass] 30.8 pg 27.0-32.0 [facility] Mean corpuscular hemoglobin concentration (MCHC) determinationOrdered By: Gia Owusu on 02-19-2025 MCHC (RBC) [Mass/Vol] 34.7 g/dL 32-36 [facility] Mean platelet volume determi nationOrdered By: Gia Owusu on 02-19-2025 Platelet mean volume (Bld) [Entitic vol] 9.6 fL 6.2-12.0 [facility] Platelet countOrdered By: Ahsan Owusu on 02-19-2025 Platelets (Bld) [#/Vol] 262 10*3/uL 150-450 [facility] Potassium measurement (mass/ volume)Ordered By: Gia Owusu on 02-19-2025 Potassium (Unsp spec) [Mass/Vol] 3.7 mmol/L 3.3-5.1 [facility] Comment on above: Hemolysis present, R esults could be affected. RBC Auto (Bld) [#/Vol]Ordere d By: Gia Owusu on 02-19-2025 RBC (Bld) [#/Vol] 2.95 10*6/uL Low 4.2-5.4 [facility] Serum creatinine measurement (mass/volume)Ordered By: Gia Owusu on 02-19-2025 Creatinine [Mass/Vol] 0.51 mg/dL Low 0.70-1.20 [facility] Serum glucose measurement (m ass/volume)Ordered By: Gia Owusu on 02-19-2025 Glucose [Mass/Vol] 165 mg/dL High 70-99 [facility] Serum or plasma calcium sabino urement (mass/volume)Ordered By: Gia Owusu on 02-19-2025 Calcium [Mass/Vol] 8.4 mg/dL 7.6-11.0 [facility] Serum or plasma urea nitroge n measurement (mass/volume)Ordered By: Gia Owusu on 02-19-2025 Urea nitrogen [Mass/Vol] 12 mg/dL 4-19 [facility] Sodium levelOrdered By: Delmy Owusu on 02-19-2025 Sodium [Moles/Vol] 134 mmol/L 133-145 [facility] White blood cell (WBC) count Ordered By: Gia Owusu on 02-19-2025 WBC (Bld) [#/Vol] 10.0 10*3/uL 4.4-11.0 [facility] Absolute lymphocyte countOrd ered By: Gai Owusu on 02-18-2025 Lymphocytes Auto (Unsp spec) [#/Vol] 2.07 10*3/uL 0.83-4.51 [facility] Absolute neutrophil countOrd ered By: Gia Owusu on 02-18-2025 Neutrophils (Bld) [#/Vol] 5.8 10*3/uL 2.0-7.7 [facility] Automated lymphocyte count a s percentage of total leukocytesOrdered By: Gia Owusu on 02-18-2025 Lymphocytes/100 WBC Auto (Unsp spec) 22.6 % 19-41 [facility] Basophil percentageOrdered B y: Gia Owusu on 02-18-2025 Basophils/100 WBC (Bld) 0.4 % 0-1 [facility] Bedside Glucoseon 02-18-2025 FINGERSTICK GLU 196 mg/dL High 74-106 [facility] Comment on above: Result Comment: MARINA FERNANDEZ OF PATIENT CARE PER NURSING PROTOCOL Performed By: #### L 501.080 ####[facility] [address] [place], [address] FINGERSTICK GLU 187 mg/dL High 74-106 [facility] Comment on above: Result Comment: MARINA GEMENT OF PATIENT CARE PER NURSING PROTOCOL Performed By: #### L 501.080 ####[facility] [address] [place], [address] FINGERSTICK GLU 285 mg/dL High 74-106 [facility] Comment on above: Result Comment: MARINA GEMENT OF PATIENT CARE PER NURSING PROTOCOL Performed By: #### L 501.080 ####[facility] [address] [place], [address] FINGERSTICK GLU 188 mg/dL High 74-106 [facility] Comment on above: Result Comment: MARINA GEMENT OF PATIENT CARE PER NURSING PROTOCOL Performed By: #### L 501.080 ####[facility] [address] [place], [address] CBC W/Diff, Automatedon 06-2 Absolute Lymph 2.07 X10 3/uL Normal 0.83-4.51 [facility] Comment on above: Performed By: #### L 100.0100 ####[facility] [address] [place], [address] Absolute Neut 5.8 X10 3/uL Normal 2.0-7.7 [facility] Comment on above: Performed By: #### L 100.0100 ####[facility] [address] [place], [address] Basophils/100 WBC (Bld) 0.4 % Normal 0-1 [facility] Comment on above: Performed By: #### L 100.0100 ####[facility] [address] [place], [address] Eosinophils/100 WBC (Bld) 2.4 % Normal 0-5 [facility] Comment on above: Performed By: #### L 100.0100 ####[facility] [address] [place], [address] Erythrocyte distribution width (RBC) [Ratio] 15.3 % High 11.6-14.6 [facility] Comment on above: Performed By: #### L 100.0100 ####[facility] [address] [place], [address] Hematocrit (Bld) [Volume fraction] 26.8 % Low 37-47 [facility] Comment on above: Performed By: #### L 100.0100 ####[facility] [address] [place], [address] Hemoglobin (Bld) [Mass/Vol] 9.6 g/dL Low 12.0-15.0 [facility] Comment on above: Performed By: #### L 100.0100 ####[facility] [address] [place], [address] IG% 0.500 Normal 0.0-0.9 [facility] Comment on above: Result Comment: IG% - Immature Granulocytes (promyelocytes, myelocytes andmetamyelocytes) > 1% indicates that a LEFT SHIFT is Present. Performed By: #### L 100.0100 ####[facility] [address] [place], [address] Lymphocytes/100 WBC (Bld) 22.6 % Normal 19-41 [facility] Comment on above: Performed By: #### L 100.0100 ####[facility] [address] [place], [address] MCH (RBC) [Entitic mass] 31.1 pg Normal 27.0-32.0 [facility] Comment on above: Performed By: #### L 100.0100 ####[facility] [address] [place], [address] MCHC (RBC) [Mass/Vol] 35.8 g/dL Normal 32-36 [facility] Comment on above: Performed By: #### L 100.0100 ####[facility] [address] [place], [address] MCV (RBC) [Entitic vol] 86.7 fL Normal 81-99 [facility] Comment on above: Performed By: #### L 100.0100 ####[facility] [address] [place], [address] Monocytes/100 WBC (Bld) 10.4 % High 0-10 [facility] Comment on above: Performed By: #### L 100.0100 ####[facility] [address] [place], [address] Neutrophils/100 WBC (Bld) 63.7 % Normal 47-70 [facility] Comment on above: Performed By: #### L 100.0100 ####[facility] [address] [place], [address] Nucleated RBC (Bld) [#/Vol] 0 10*3/uL Normal 0-5 [facility] Comment on above: Performed By: #### L 100.0100 ####[facility] [address] [place], [address] Platelet mean volume (Bld) [Entitic vol] 9.4 fL Normal 6.2-12.0 [facility] Comment on above: Performed By: #### L 100.0100 ####[facility] [address] [place], [address] Platelets (Bld) [#/Vol] 247 10*3/uL Normal 150-450 [facility] Comment on above: Performed By: #### L 100.0100 ####[facility] [address] [place], [address] RBC (Bld) [#/Vol] 3.09 10*6/uL Low 4.2-5.4 [facility] Comment on above: Performed By: #### L 100.0100 ####[facility] [address] [place], [address] RDW SD 45.9 fl High 35.1-43.9 [facility] Comment on above: Performed By: #### L 100.0100 ####[facility] [address] [place], [address] WBC (Bld) [#/Vol] 9.2 10*3/uL Normal 4.4-11.0 [facility] Comment on above: Performed By: #### L 100.0100 ####[facility] [address] [place], [address] Eosinophil percentageOrdered By: Gia Owusu on 02-18-2025 Eosinophils/100 WBC (Bld) 2.4 % 0-5 [facility] Immature granulocytes/100 WB C Auto (Bld)Ordered By: Gia Owusu on 02-18-2025 Immature granulocytes/100 WBC (Bld) 0.500 % 0.0-0.9 [facility] Comment on above: IG% - Immature Granu locytes (promyelocytes, myelocytes and metamyelocytes) > 1% indicates that a LEFT SHIFT is Present. Monocyte percentageOrdered B y: Gia Owusu on 02-18-2025 Monocytes/100 WBC (Bld) 10.4 % High 0-10 [facility] Neutrophil percentageOrdered By: Gia Owusu on 02-18-2025 Neutrophils/100 WBC (Bld) 63.7 % 47-70 [facility] Nucleated red blood cell per centageOrdered By: Gia Owusu on 02-18-2025 Nucleated RBC/100 WBC (Bld) [Ratio] 0 % 0-5 [facility] Basic Metabolic Profile (BMP )on 02-17-2025 BUN/CRE 28.5 RATIO High 10-20 [facility] Comment on above: Performed By: #### L 100.0100, L500.2500 ####[facility] [address] [place], [address] Calcium [Mass/Vol] 8.3 mg/dL Normal 7.6-11.0 [facility] Comment on above: Performed By: #### L 100.0100, L500.2500 ####[facility] [address] [place], [address] Chloride [Moles/Vol] 105 mmol/L Normal 98-108 [facility] Comment on above: Performed By: #### L 100.0100, L500.2500 ####[facility] [address] [place], [address] CO2 [Moles/Vol] 20.2 mmol/L Low 21.0-32.0 [facility] Comment on above: Performed By: #### L 100.0100, L500.2500 ####[facility] [address] [place], [address] Creatinine [Mass/Vol] 0.61 mg/dL Low 0.70-1.20 [facility] Comment on above: Performed By: #### L 100.0100, L500.2500 ####[facility] [address] [place], [address] ECRCL 44.44 ml/min Low 50-250 [facility] Comment on above: Performed By: #### L 100.0100, L500.2500 ####[facility] [address] [place], [address] GAP 11 Normal 5-15 [facility] Comment on above: Performed By: #### L 100.0100, L500.2500 ####[facility] [address] [place], [address] GFR/1.73 sq M.predicted among non-blacks MDRD (S/P/Bld) [Vol rate/Area] 92 mL/min/{1.73_m2} Normal >60 [facility] Comment on above: Result Comment: mL/m in/1.73m2 CKD-EPI Creatinine Equation (2020) Performed By: #### L 100.0100, L500.2500 ####[facility] [address] [place], [address] Glucose [Mass/Vol] 157 mg/dL High 70-99 [facility] Comment on above: Performed By: #### L 100.0100, L500.2500 ####[facility] [address] [place], [address] Potassium [Moles/Vol] 4.0 mmol/L Normal 3.3-5.1 [facility] Comment on above: Performed By: #### L 100.0100, L500.2500 ####[facility] [address] [place], [address] Sodium [Moles/Vol] 136 mmol/L Normal 133-145 [facility] Comment on above: Performed By: #### L 100.0100, L500.2500 ####[facility] [address] [place], [address] Urea nitrogen [Mass/Vol] 17 mg/dL Normal 4-19 [facility] Comment on above: Performed By: #### L 100.0100, L500.2500 ####[facility] [address] [place], [address] Bedside Glucoseon 02-17-2025 FINGERSTICK GLU 246 mg/dL High 74-106 [facility] Comment on above: Result Comment: MARINA GEMENT OF PATIENT CARE PER NURSING PROTOCOL Performed By: #### L 501.080 ####[facility] [address] [place], [address] FINGERSTICK GLU 192 mg/dL High 74-106 [facility] Comment on above: Result Comment: MARINA GEMENT OF PATIENT CARE PER NURSING PROTOCOL Performed By: #### L 501.080 ####[facility] [address] [place], [address] FINGERSTICK GLU 238 mg/dL High 74-106 [facility] Comment on above: Result Comment: MARINA GEMENT OF PATIENT CARE PER NURSING PROTOCOL Performed By: #### L 501.080 ####[facility] [address] [place], [address] FINGERSTICK GLU 159 mg/dL High 74-106 [facility] Comment on above: Result Comment: MARINA GEMENT OF PATIENT CARE PER NURSING PROTOCOL Performed By: #### L 501.080 ####[facility] [address] [place], [address] CBC W/Diff, Automatedon 01-22 Absolute Lymph 2.20 X10 3/uL Normal 0.83-4.51 [facility] Comment on above: Performed By: #### L 100.0100, L500.2500 ####[facility] [address] [place], [address] Absolute Neut 6.7 X10 3/uL Normal 2.0-7.7 [facility] Comment on above: Performed By: #### L 100.0100, L500.2500 ####[facility] [address] [place], [address] Basophils/100 WBC (Bld) 0.2 % Normal 0-1 [facility] Comment on above: Performed By: #### L 100.0100, L500.2500 ####[facility] [address] [place], [address] Eosinophils/100 WBC (Bld) 0.3 % Normal 0-5 [facility] Comment on above: Performed By: #### L 100.0100, L500.2500 ####[facility] [address] [place], [address] Erythrocyte distribution width (RBC) [Ratio] 14.6 % Normal 11.6-14.6 [facility] Comment on above: Performed By: #### L 100.0100, L500.2500 ####[facility] [address] [place], [address] Hematocrit (Bld) [Volume fraction] 27.0 % Low 37-47 [facility] Comment on above: Performed By: #### L 100.0100, L500.2500 ####[facility] [address] [place], [address] Hemoglobin (Bld) [Mass/Vol] 9.9 g/dL Low 12.0-15.0 [facility] Comment on above: Performed By: #### L 100.0100, L500.2500 ####[facility] [address] [place], [address] IG% 0.600 Normal 0.0-0.9 [facility] [facility] Comment on above: Result Comment: IG% - Immature Granulocytes (promyelocytes, myelocytes andmetamyelocytes) > 1% indicates that a LEFT SHIFT is Present. Performed By: #### L 100.0100, L500.2500 ####[facility] [address] [place], [address] Lymphocytes/100 WBC (Bld) 22.0 % Normal 19-41 [facility] Comment on above: Performed By: #### L 100.0100, L500.2500 ####[facility] [address] [place], [address] MCH (RBC) [Entitic mass] 31.2 pg Normal 27.0-32.0 [facility] Comment on above: Performed By: #### L 100.0100, L500.2500 ####[facility] [address] [place], [address] MCHC (RBC) [Mass/Vol] 36.7 g/dL High 32-36 [facility] Comment on above: Performed By: #### L 100.0100, L500.2500 ####[facility] [address] [place], [address] MCV (RBC) [Entitic vol] 85.2 fL Normal 81-99 [facility] Comment on above: Performed By: #### L 100.0100, L500.2500 ####[facility] [address] [place], [address] Monocytes/100 WBC (Bld) 10.3 % High 0-10 [facility] Comment on above: Performed By: #### L 100.0100, L500.2500 ####[facility] [address] [place], [address] Neutrophils/100 WBC (Bld) 66.6 % Normal 47-70 [facility] Comment on above: Performed By: #### L 100.0100, L500.2500 ####[facility] [address] [place], [address] Nucleated RBC (Bld) [#/Vol] 0 10*3/uL Normal 0-5 [facility] Comment on above: Performed By: #### L 100.0100, L500.2500 ####[facility] [address] [place], [address] Platelet mean volume (Bld) [Entitic vol] 9.4 fL Normal 6.2-12.0 [facility] Comment on above: Performed By: #### L 100.0100, L500.2500 ####[facility] [address] [place], [address] Platelets (Bld) [#/Vol] 247 10*3/uL Normal 150-450 [facility] Comment on above: Performed By: #### L 100.0100, L500.2500 ####[facility] [address] [place], [address] RBC (Bld) [#/Vol] 3.17 10*6/uL Low 4.2-5.4 [facility] Comment on above: Performed By: #### L 100.0100, L500.2500 ####[facility] [address] [place], [address] RDW SD 44.0 fl High 35.1-43.9 [facility] Comment on above: Performed By: #### L 100.0100, L500.2500 ####[facility] [address] [place], [address] WBC (Bld) [#/Vol] 10.0 10*3/uL Normal 4.4-11.0 [facility] Comment on above: Performed By: #### L 100.0100, L500.2500 ####[facility] [address] [place], [address] Haptoglobinon 02-17-2025 HAPTOGLOBIN 91 mg/dL Normal 42-346 [facility] Comment on above: Result Comment: Perf ormed at: CB - [facility] [place] [id number] Director: Danielito العلي PhD, Phone: [phone] Performed By: #### L 9481.7351, W053.9105, U404.0624 ####[facility] [address] [place], [address] Activated partial thrombopla stin time (aPTT) in platelet poor plasma by coagulation aOrdered By: Bi Zaman on 02-16-2025 aPTT Coag (PPP) [Time] 31.5 s 24.1-36.2 [facility] Bedside Glucoseon 02-16-2025 FINGERSTICK GLU 250 mg/dL High 74-106 [facility] Comment on above: Result Comment: MARINA FERNANDEZ OF PATIENT CARE PER NURSING PROTOCOL Performed By: #### L 501.080 ####[facility] [address] [place], [address] FINGERSTICK GLU 245 mg/dL High 74-106 [facility] Comment on above: Result Comment: MARINA GEMENT OF PATIENT CARE PER NURSING PROTOCOL Performed By: #### L 501.080 ####[facility] [address] [place], [address] FINGERSTICK GLU 151 mg/dL High 74-106 [facility] Comment on above: Result Comment: MARINA GEMENT OF PATIENT CARE PER NURSING PROTOCOL Performed By: #### L 501.080 ####[facility] [address] [place], [address] Bilirubin, totalOrdered By: Lakeshia Mas on 02-16-2025 Bilirubin [Mass/Vol] 1.96 mg/dL High 0.00-1.30 [facility] CBC W/Diff, Automatedon 01-22 Absolute Lymph 2.62 X10 3/uL Normal 0.83-4.51 [facility] Comment on above: Performed By: #### L 300.3900, L300.4310, L100.0100, L501.9520, L501.9985, L500.4050 ####[facility] [address] [place], [address] Absolute Neut 5.8 X10 3/uL Normal 2.0-7.7 [facility] Comment on above: Performed By: #### L 300.3900, L300.4310, L100.0100, L501.9520, L501.9985, L500.4050 ####[facility] [address] [place], [address] Basophils/100 WBC (Bld) 0.5 % Normal 0-1 [facility] Comment on above: Performed By: #### L 300.3900, L300.4310, L100.0100, L501.9520, L501.9985, L500.4050 ####[facility] [address] [place], [address] Eosinophils/100 WBC (Bld) 1.9 % Normal 0-5 [facility] Comment on above: Performed By: #### L 300.3900, L300.4310, L100.0100, L501.9520, L501.9985, L500.4050 ####[facility] [address] [place], [address] Erythrocyte distribution width (RBC) [Ratio] 14.4 % Normal 11.6-14.6 [facility] Comment on above: Performed By: #### L 300.3900, L300.4310, L100.0100, L501.9520, L501.9985, L500.4050 ####[facility] [address] [place], [address] Hematocrit (Bld) [Volume fraction] 24.1 % Low 37-47 [facility] Comment on above: Performed By: #### L 300.3900, L300.4310, L100.0100, L501.9520, L501.9985, L500.4050 ####[facility] [address] [place], [address] Hemoglobin (Bld) [Mass/Vol] 8.7 g/dL Low 12.0-15.0 [facility] Comment on above: Performed By: #### L 300.3900, L300.4310, L100.0100, L501.9520, L501.9985, L500.4050 ####[facility] [address] [place], [address] IG% 0.400 Normal 0.0-0.9 [facility] Comment on above: Result Comment: IG% - Immature Granulocytes (promyelocytes, myelocytes andmetamyelocytes) > 1% indicates that a LEFT SHIFT is Present. Performed By: #### L 300.3900, L300.4310, L100.0100, L501.9520, L501.9985, L500.4050 ####[facility] [address] [place], [address] Lymphocytes/100 WBC (Bld) 27.3 % Normal 19-41 [facility] Comment on above: Performed By: #### L 300.3900, L300.4310, L100.0100, L501.9520, L501.9985, L500.4050 ####[facility] [address] [place], [address] MCH (RBC) [Entitic mass] 32.1 pg High 27.0-32.0 [facility] Comment on above: Performed By: #### L 300.3900, L300.4310, L100.0100, L501.9520, L501.9985, L500.4050 ####[facility] [address] [place], [address] MCHC (RBC) [Mass/Vol] 36.1 g/dL High 32-36 [facility] Comment on above: Performed By: #### L 300.3900, L300.4310, L100.0100, L501.9520, L501.9985, L500.4050 ####[facility] [address] [place], [address] MCV (RBC) [Entitic vol] 88.9 fL Normal 81-99 [facility] Comment on above: Performed By: #### L 300.3900, L300.4310, L100.0100, L501.9520, L501.9985, L500.4050 ####[facility] [address] [place], [address] Monocytes/100 WBC (Bld) 9.3 % Normal 0-10 [facility] Comment on above: Performed By: #### L 300.3900, L300.4310, L100.0100, L501.9520, L501.9985, L500.4050 ####[facility] [address] [place], [address] Neutrophils/100 WBC (Bld) 60.6 % Normal 47-70 [facility] Comment on above: Performed By: #### L 300.3900, L300.4310, L100.0100, L501.9520, L501.9985, L500.4050 ####[facility] [address] [place], [address] Nucleated RBC (Bld) [#/Vol] 0 10*3/uL Normal 0-5 [facility] Comment on above: Performed By: #### L 300.3900, L300.4310, L100.0100, L501.9520, L501.9985, L500.4050 ####[facility] [address] [place], [address] Platelet mean volume (Bld) [Entitic vol] 9.5 fL Normal 6.2-12.0 [facility] Comment on above: Performed By: #### L 300.3900, L300.4310, L100.0100, L501.9520, L501.9985, L500.4050 ####[facility] [address] [place], [address] Platelets (Bld) [#/Vol] 297 10*3/uL Normal 150-450 [facility] Comment on above: Performed By: #### L 300.3900, L300.4310, L100.0100, L501.9520, L501.9985, L500.4050 ####[facility] [address] [place], [address] RBC (Bld) [#/Vol] 2.71 10*6/uL Low 4.2-5.4 [facility] Comment on above: Performed By: #### L 300.3900, L300.4310, L100.0100, L501.9520, L501.9985, L500.4050 ####[facility] [address] [place], [address] RDW SD 43.8 fl Normal 35.1-43.9 [facility] Comment on above: Performed By: #### L 300.3900, L300.4310, L100.0100, L501.9520, L501.9985, L500.4050 ####[facility] [address] [place], [address] WBC (Bld) [#/Vol] 9.6 10*3/uL Normal 4.4-11.0 [facility] Comment on above: Performed By: #### L 300.3900, L300.4310, L100.0100, L501.9520, L501.9985, L500.4050 ####[facility] [address] [place], [address] Comprehensive Metabolic Prof [facility] 02-16-2025 Albumin [Mass/Vol] 3.0 g/dL Low 3.4-4.8 [facility] Comment on above: Performed By: #### L 300.3900, L300.4310, L100.0100, L501.9520, L501.9985, L500.4050 ####[facility] [address] [place], [address] Albumin/Globulin [Mass ratio] 0.8 {ratio} Low 0.9-2.4 [facility] Comment on above: Performed By: #### L 300.3900, L300.4310, L100.0100, L501.9520, L501.9985, L500.4050 ####[facility] [address] [place], [address] ALK PHOS 89 U/L Normal 35-104 [facility] Comment on above: Performed By: #### L 300.3900, L300.4310, L100.0100, L501.9520, L501.9985, L500.4050 ####[facility] [address] [place], [address] ALT [Catalytic activity/Vol] U/L Normal <=34 [facility] Comment on above: Performed By: #### L 300.3900, L300.4310, L100.0100, L501.9520, L501.9985, L500.4050 ####[facility] [address] [place], [address] AST [Catalytic activity/Vol] 34 U/L High <=31 [facility] Comment on above: Performed By: #### L 300.3900, L300.4310, L100.0100, L501.9520, L501.9985, L500.4050 ####[facility] [address] [place], [address] Bilirubin [Mass/Vol] 1.96 mg/dL High 0.00-1.30 [facility] Comment on above: Performed By: #### L 300.3900, L300.4310, L100.0100, L501.9520, L501.9985, L500.4050 ####[facility] [address] [place], [address] BUN/CRE 28.4 RATIO High 10-20 [facility] Comment on above: Performed By: #### L 300.3900, L300.4310, L100.0100, L501.9520, L501.9985, L500.4050 ####[facility] [address] [place], [address] Calcium [Mass/Vol] 8.9 mg/dL Normal 7.6-11.0 [facility] Comment on above: Performed By: #### L 300.3900, L300.4310, L100.0100, L501.9520, L501.9985, L500.4050 ####[facility] [address] [place], [address] Chloride [Moles/Vol] 102 mmol/L Normal 98-108 [facility] Comment on above: Performed By: #### L 300.3900, L300.4310, L100.0100, L501.9520, L501.9985, L500.4050 ####[facility] [address] [place], [address] CO2 [Moles/Vol] 19.9 mmol/L Low 21.0-32.0 [facility] Comment on above: Performed By: #### L 300.3900, L300.4310, L100.0100, L501.9520, L501.9985, L500.4050 ####[facility] [address] [place], [address] Creatinine [Mass/Vol] 0.77 mg/dL Normal 0.70-1.20 [facility] Comment on above: Performed By: #### L 300.3900, L300.4310, L100.0100, L501.9520, L501.9985, L500.4050 ####[facility] [address] [place], [address] ECRCL 44.44 ml/min Low 50-250 [facility] Comment on above: Performed By: #### L 300.3900, L300.4310, L100.0100, L501.9520, L501.9985, L500.4050 ####[facility] [address] [place], [address] GAP 12 Normal 5-15 [facility] Comment on above: Performed By: #### L 300.3900, L300.4310, L100.0100, L501.9520, L501.9985, L500.4050 ####[facility] [address] [place], [address] GFR/1.73 sq M.predicted among non-blacks MDRD (S/P/Bld) [Vol rate/Area] 80 mL/min/{1.73_m2} Normal >60 [facility] Comment on above: Result Comment: mL/m in/1.73m2 CKD-EPI Creatinine Equation (2020) Performed By: #### L 300.3900, L300.4310, L100.0100, L501.9520, L501.9985, L500.4050 ####[facility] [address] [place], [address] Globulin (S) [Mass/Vol] 3.6 g/dL Normal 2.2-4.2 [facility] Comment on above: Performed By: #### L 300.3900, L300.4310, L100.0100, L501.9520, L501.9985, L500.4050 ####[facility] [address] [place], [address] Glucose [Mass/Vol] 155 mg/dL High 70-99 [facility] Comment on above: Performed By: #### L 300.3900, L300.4310, L100.0100, L501.9520, L501.9985, L500.4050 ####[facility] [address] [place], [address] Potassium [Moles/Vol] 3.6 mmol/L Normal 3.3-5.1 [facility] Comment on above: Performed By: #### L 300.3900, L300.4310, L100.0100, L501.9520, L501.9985, L500.4050 ####[facility] [address] [place], [address] Sodium [Moles/Vol] 133 mmol/L Normal 133-145 [facility] Comment on above: Performed By: #### L 300.3900, L300.4310, L100.0100, L501.9520, L501.9985, L500.4050 ####[facility] [address] [place], [address] T PROT 6.6 g/dL Normal 5.9-8.4 [facility] Comment on above: Performed By: #### L 300.3900, L300.4310, L100.0100, L501.9520, L501.9985, L500.4050 ####[facility] [address] [place], [address] Urea nitrogen [Mass/Vol] 22 mg/dL High 4-19 [facility] Comment on above: Performed By: #### L 300.3900, L300.4310, L100.0100, L501.9520, L501.9985, L500.4050 ####[facility] [address] [place], [address] Consultation - Orthopedicson 02-16-2025 Consultation - Orthopedics Normal [facility] Hemoglobin A1con 02-16-2025 HbA1c (Bld) [Mass fraction] 7.3 % High <=5.6 [facility] Comment on above: Result Comment: Norm al < 5.7 % Prediabetic 5.7 - 6.4 % Diabetic >or= 6.5 % Please note range changes. Performed By: #### L 300.3900, L300.4310, L100.0100, L501.9520, L501.9985, L500.4050 ####[facility] [address] [place], [address] Hemoglobin A1c percentageOrd ered By: Lakeshia Mas on 02-16-2025 HbA1c (Bld) [Mass fraction] 7.3 % High <5.7 [facility] Comment on above: Normal < 5.7 % Predi abetic 5.7 - 6.4 % Diabetic >or= 6.5 % Please note range changes. Hip Min 2 Views (Portable)on 02-16-2025 Hip Min 2 Views (Portable) Normal [facility] International normalized rat io (INR) calculationOrdered By: Lakeshia Mas on 02-16-2025 INR Coag (Bld) [Relative time] 1.1 {INR} [facility] Laboratory - Chemistry and C hemistry - challengeOrdered By: Lakeshia Mas on 02-16-2025 AST [Catalytic activity/Vol] 34 U/L High <32 [facility] MR/POSTOP.ANEon 02-16-2025 MR/POSTOP.ANE Normal [facility] O.R. Fluoro for C-Panfilo 01-22 O.R. Fluoro for C-Arm Normal [facility] Operative Reporton Operative Report Normal [facility] Partial Thromboplast Timeon 02-16-2025 aPTT Coag (Bld) [Time] 31.5 s Normal 24.1-36.2 [facility] Comment on above: Performed By: #### L 300.3900, L300.4310, L100.0100, L501.9520, L501.9985, L500.4050 ####[facility] [address] [place], [address] Prothrombin Time w/INRon INR Coag (PPP) [Relative time] 1.1 {INR} Normal [facility] Comment on above: Performed By: #### L 300.3900, L300.4310, L100.0100, L501.9520, L501.9985, L500.4050 ####[facility] [address] [place], [address] PT Coag (PPP) [Time] 14.6 s Normal 11.7-14.9 [facility] Comment on above: Performed By: #### L 300.3900, L300.4310, L100.0100, L501.9520, L501.9985, L500.4050 ####[facility] [address] [place], [address] Prothrombin timeOrdered By: Lakeshia Mas on 02-16-2025 PT Coag (PPP) [Time] 14.6 s 11.7-14.9 [facility] Serum globulin measurementOr dered By: Lakeshia Mas on 02-16-2025 Globulin (S) [Mass/Vol] 3.6 g/dL 2.2-4.2 [facility] Serum or plasma alanine cornejo otransferase (ALT) measurementOrdered By: Lakeshia Mas on 02-16-2025 ALT [Catalytic activity/Vol] U/L <35 [facility] Serum or plasma albumin sabino urement (mass/volume)Ordered By: Lakeshia Mas on 02-16-2025 Albumin [Mass/Vol] 3.0 g/dL Low 3.4-4.8 [facility] Serum or plasma albumin/glob ulin mass ratioOrdered By: Lakeshia Mas on 02-16-2025 Albumin/Globulin [Mass ratio] 0.8 {ratio} Low 0.9-2.4 [facility] Serum or plasma alkaline shaista sphatase measurementOrdered By: Lakeshia Mas on 02-16-2025 ALP [Catalytic activity/Vol] 89 U/L 35-104 [facility] T4 Free Directon 02-16-2025 T4 FREE DIRECT 1.10 ng/dL Normal 0.76-1.46 [facility] Comment on above: Performed By: #### L 506.0400, L506.1001 ####[facility] [address] [place], [place], [id number] T4 freeOrdered By: Baldev reza on 02-16-2025 Free T4 [Mass/Vol] 1.10 ng/dL 0.76-1.46 [facility] TSH DL <= 0.005 mIU/L QnOrde red By: Lakeshia Mas on 02-16-2025 TSH Qn 7.490 uIU/mL High 0.300-4.200 [facility] Thyroid Stim Hormone (TSH)on 02-16-2025 TSH 7.490 uIU/mL High 0.300-4.200 [facility] Comment on above: Performed By: #### L 300.3900, L300.4310, L100.0100, L501.9520, L501.9985, L500.4050 ####[facility] [address] [place], [place], [id number] Total proteinOrdered By: Stephan Mas on 02-16-2025 Protein [Mass/Vol] 6.6 g/dL 5.9-8.4 [facility] Type AND Screenon 02-16-2025 ABO and Rh group Nom (Bld) Blood group O Rh(D) positive Normal [facility] Comment on above: Order Comment: S Performed By: #### B TS ####[facility] [address] [place], [place], [id number] Vitamin D,25 Hydroxyon 02-16 Vitamin D 25-OH 10.7 ng/mL Low 30-100 [facility] Comment on above: Result Comment: Jojo min D StatusDeficiency: <20 ng/mL (50nmol/L)Insufficiency: 20-30 ng/mL (50-75 nmol/L)Sufficiency: 30-100 ng/mL (75-250 nmol/L)Toxicity: >100 ng/mL (>250 nmol/L) Performed By: #### L 506.0400, L506.1001 ####[facility] [address] [place], [place], [address] Absolute lymphocyte countOrd ered By: Abdirashid Cano on 02-15-2025 Lymphocytes Auto (Unsp spec) [#/Vol] 3.52 10*3/uL 0.83-4.51 [facility] Absolute neutrophil countOrd ered By: Abdirashid Cano on 02-15-2025 Neutrophils (Bld) [#/Vol] 4.6 10*3/uL 2.0-7.7 [facility] Anion gap in Serum or Plasma Ordered By: Abdirashid Cano on 02-15-2025 Anion gap [Moles/Vol] 15 mmol/L 5-15 [facility] Automated lymphocyte count a s percentage of total leukocytesOrdered By: Abdirashid Cano on 02-15-2025 Lymphocytes/100 WBC Auto (Unsp spec) 38.6 % 19-41 [facility] BRCon 02-15-2025 RC Normal [facility] Comment on above: Result Comment: [id number] OP RC TRANSFUSED 02/16/25 [id number] OP RC TRANSFUSED 02/16/25 1642 Performed By: #### B RC ####[facility] [address] [place], [place], [id number] BUN/creatinine ratioOrdered By: Abdirashid Cano on 02-15-2025 Urea nitrogen/Creatinine [Mass ratio] 25.3 mg/mg High 10-20 [facility] Basophil percentageOrdered B y: Abdirashid Cano on 02-15-2025 Basophils/100 WBC (Bld) 0.4 % 0-1 [facility] Bedside Glucoseon 02-15-2025 FINGERSTICK GLU 148 mg/dL High 74-106 [facility] Comment on above: Result Comment: MARINA LUDAENT OF PATIENT CARE PER NURSING PROTOCOL Performed By: #### L 501.080 ####[facility] [address] [place], [place], [address] Bilirubin Test strip Ql (U)O rdered By: Abdirashid Cano on 02-15-2025 Bilirubin Ql (U) Negative Negative [facility] Bilirubin directOrdered By: Lakeshia Mas on 02-15-2025 Bilirubin.direct [Mass/Vol] 1.15 mg/dL High 0.00-0.30 [facility] Bilirubin, Directon 02-16-20 25 Bilirubin.direct [Mass/Vol] 1.15 mg/dL High 0.00-0.30 [facility] Comment on above: Performed By: #### L 3100.1850, L504.2610, L501.4700 ####[facility] [address] [place], [place], [address] Bilirubin, totalOrdered By: Abdirashid Cano on 02-15-2025 Bilirubin [Mass/Vol] 2.68 mg/dL High 0.00-1.30 [facility] CBC W/Diff, Automatedon 01-22 Absolute Lymph 3.52 X10 3/uL Normal 0.83-4.51 [facility] Comment on above: Performed By: #### L 100.0100, L500.4050 ####[facility] [address] [place], [address] Absolute Neut 4.6 X10 3/uL Normal 2.0-7.7 [facility] Comment on above: Performed By: #### L 100.0100, L500.4050 ####[facility] [address] [place], [address] Basophils/100 WBC (Bld) 0.4 % Normal 0-1 [facility] Comment on above: Performed By: #### L 100.0100, L500.4050 ####[facility] [address] [place], [address] Eosinophils/100 WBC (Bld) 1.8 % Normal 0-5 [facility] Comment on above: Performed By: #### L 100.0100, L500.4050 ####[facility] [address] [place], [address] Erythrocyte distribution width (RBC) [Ratio] 14.1 % Normal 11.6-14.6 [facility] Comment on above: Performed By: #### L 100.0100, L500.4050 ####[facility] [address] [place], [address] Hematocrit (Bld) [Volume fraction] 24.0 % Low 37-47 [facility] Comment on above: Performed By: #### L 100.0100, L500.4050 ####[facility] [address] [place], [address] Hemoglobin (Bld) [Mass/Vol] 8.7 g/dL Low 12.0-15.0 [facility] Comment on above: Performed By: #### L 100.0100, L500.4050 ####[facility] [address] [place], [address] IG% 0.300 Normal 0.0-0.9 [facility] Comment on above: Result Comment: IG% - Immature Granulocytes (promyelocytes, myelocytes andmetamyelocytes) > 1% indicates that a LEFT SHIFT is Present. Performed By: #### L 100.0100, L500.4050 ####[facility] [address] [place], [address] Lymphocytes/100 WBC (Bld) 38.6 % Normal 19-41 [facility] Comment on above: Performed By: #### L 100.0100, L500.4050 ####[facility] [address] [place], [address] MCH (RBC) [Entitic mass] 32.1 pg High 27.0-32.0 [facility] Comment on above: Performed By: #### L 100.0100, L500.4050 ####[facility] [address] [place], [address] MCHC (RBC) [Mass/Vol] 36.3 g/dL High 32-36 [facility] Comment on above: Performed By: #### L 100.0100, L500.4050 ####[facility] [address] [place], [address] MCV (RBC) [Entitic vol] 88.6 fL Normal 81-99 [facility] Comment on above: Performed By: #### L 100.0100, L500.4050 ####[facility] [address] [place], [address] Monocytes/100 WBC (Bld) 8.7 % Normal 0-10 [facility] Comment on above: Performed By: #### L 100.0100, L500.4050 ####[facility] [address] [place], [address] Neutrophils/100 WBC (Bld) 50.2 % Normal 47-70 [facility] Comment on above: Performed By: #### L 100.0100, L500.4050 ####[facility] [address] [place], [address] Nucleated RBC (Bld) [#/Vol] 0 10*3/uL Normal 0-5 [facility] Comment on above: Performed By: #### L 100.0100, L500.4050 ####[facility] [address] [place], [address] Platelet mean volume (Bld) [Entitic vol] 9.6 fL Normal 6.2-12.0 [facility] Comment on above: Performed By: #### L 100.0100, L500.4050 ####[facility] [address] [place], [address] Platelets (Bld) [#/Vol] 258 10*3/uL Normal 150-450 [facility] Comment on above: Performed By: #### L 100.0100, L500.4050 ####[facility] [address] [place], [address] RBC (Bld) [#/Vol] 2.71 10*6/uL Low 4.2-5.4 [facility] Comment on above: Performed By: #### L 100.0100, L500.4050 ####[facility] [address] [place], [address] RDW SD 42.4 fl Normal 35.1-43.9 [facility] Comment on above: Performed By: #### L 100.0100, L500.4050 ####[facility] [address] [place], [address] WBC (Bld) [#/Vol] 9.1 10*3/uL Normal 4.4-11.0 [facility] Comment on above: Performed By: #### L 100.0100, L500.4050 ####[facility] [address] [place], [address] Carbon dioxide, total [Moles /volume] in Central venous bloodOrdered By: Abdirashid Cano on 02-15-2025 CO2 [Moles/Vol] 18.1 mmol/L Low 21.0-32.0 [facility] Chloride assayOrdered By: Anurag Cano on 02-15-2025 Chloride [Moles/Vol] 100 mmol/L 98-108 [facility] Comprehensive Metabolic Prof ilon 02-15-2025 Albumin [Mass/Vol] 3.0 g/dL Low 3.4-4.8 [facility] Comment on above: Performed By: #### L 100.0100, L500.4050 ####[facility] [address] [place], [address] Albumin/Globulin [Mass ratio] 0.8 {ratio} Low 0.9-2.4 [facility] Comment on above: Performed By: #### L 100.0100, L500.4050 ####[facility] [address] [place], [address] ALK PHOS 77 U/L Normal 35-104 [facility] Comment on above: Performed By: #### L 100.0100, L500.4050 ####[facility] [address] [place], [address] ALT [Catalytic activity/Vol] U/L Normal <=34 [facility] Comment on above: Performed By: #### L 100.0100, L500.4050 ####[facility] [address] [place], [address] AST [Catalytic activity/Vol] 33 U/L High <=31 [facility] Comment on above: Performed By: #### L 100.0100, L500.4050 ####[facility] [address] [place], [address] Bilirubin [Mass/Vol] 2.68 mg/dL High 0.00-1.30 [facility] Comment on above: Performed By: #### L 100.0100, L500.4050 ####[facility] [address] [place], [address] BUN/CRE 25.3 RATIO High 10-20 [facility] Comment on above: Performed By: #### L 100.0100, L500.4050 ####[facility] [address] [place], [address] Calcium [Mass/Vol] 8.7 mg/dL Normal 7.6-11.0 [facility] Comment on above: Performed By: #### L 100.0100, L500.4050 ####[facility] [address] [place], [address] Chloride [Moles/Vol] 100 mmol/L Normal 98-108 [facility] Comment on above: Performed By: #### L 100.0100, L500.4050 ####[facility] [address] [place], [address] CO2 [Moles/Vol] 18.1 mmol/L Low 21.0-32.0 [facility] Comment on above: Performed By: #### L 100.0100, L500.4050 ####[facility] [address] [place], [address] Creatinine [Mass/Vol] 0.76 mg/dL Normal 0.70-1.20 [facility] Comment on above: Performed By: #### L 100.0100, L500.4050 ####[facility] [address] [place], [address] ECRCL 50.65 ml/min Normal 50-250 [facility] Comment on above: Performed By: #### L 100.0100, L500.4050 ####[facility] [address] [place], [address] GAP 15 Normal 5-15 [facility] Comment on above: Performed By: #### L 100.0100, L500.4050 ####[facility] [address] [place], [address] GFR/1.73 sq M.predicted among non-blacks MDRD (S/P/Bld) [Vol rate/Area] 80 mL/min/{1.73_m2} Normal >60 [facility] Comment on above: Result Comment: mL/m in/1.73m2 CKD-EPI Creatinine Equation (2020) Performed By: #### L 100.0100, L500.4050 ####[facility] [address] [place], [address] Globulin (S) [Mass/Vol] 3.7 g/dL Normal 2.2-4.2 [facility] Comment on above: Performed By: #### L 100.0100, L500.4050 ####[facility] [address] [place], [address] Glucose [Mass/Vol] 155 mg/dL High 70-99 [facility] Comment on above: Performed By: #### L 100.0100, L500.4050 ####[facility] [address] [place], [address] Potassium [Moles/Vol] 3.7 mmol/L Normal 3.3-5.1 [facility] Comment on above: Performed By: #### L 100.0100, L500.4050 ####[facility] [address] [place], [address] Sodium [Moles/Vol] 133 mmol/L Normal 133-145 [facility] Comment on above: Performed By: #### L 100.0100, L500.4050 ####[facility] [address] [place], [address] T PROT 6.8 g/dL Normal 5.9-8.4 [facility] Comment on above: Performed By: #### L 100.0100, L500.4050 ####[facility] [address] [place], [address] Urea nitrogen [Mass/Vol] 19 mg/dL Normal 4-19 [facility] Comment on above: Performed By: #### L 100.0100, L500.4050 ####[facility] [address] [place], [place], [address] Emergency Department Summary on 02-15-2025 Emergency Department Summary Normal [facility] Eosinophil percentageOrdered By: Abdirashid Cano on 02-15-2025 Eosinophils/100 WBC (Bld) 1.8 % 0-5 [facility] Erythrocyte distribution wid th ratioOrdered By: Abdirashid Cano on 02-15-2025 Erythrocyte distribution width (RBC) [Ratio] 14.1 % 11.6-14.6 [facility] Erythrocyte distribution wid th standard deviationOrdered By: Abdirashid Cano on 02-15-2025 Erythrocyte distribution width (RBC) [Ratio] 42.4 fl 35.1-43.9 [facility] Femur Min 2 Viewson 02-16-20 25 Femur Min 2 Views Normal [facility] Ferritinon 02-15-2025 Ferritin [Mass/Vol] 150 ng/mL Normal 22-378 [facility] Comment on above: Performed By: #### L 503.6550, L100.9950, L503.6030 ####[facility] [address] [place], [place], [address] Glomerular filtration rate ( GFR) estimation/1.73 sq m using serum, plasma, or whole bOrdered By: Abdirashid Cano on 02-15-2025 GFR/1.73 sq M.predicted among non-blacks MDRD (S/P/Bld) [Vol rate/Area] 80 mL/min/{1.73_m2} >60 [facility] Comment on above: mL/min/1.73m2 CKD-EP I Creatinine Equation (2020) H AND P Exam - Hospitaliston 02-15-2025 H&P Exam - Hospitalist Normal [facility] HIP, UNI W/ Pelvis 2-3 Views on 02-15-2025 HIP, UNI W/ Pelvis 2-3 Views Normal [facility] Hematocrit Auto (Bld) [Volum e fraction]Ordered By: Abdirashid Cano on 02-15-2025 Hematocrit (Bld) [Volume fraction] 24.0 % Low 37-47 [facility] Hemoglobin measurementOrdere d By: Abdirashid Cano on 02-15-2025 Hemoglobin (Bld) [Mass/Vol] 8.7 g/dL Low 12.0-15.0 [facility] Immature granulocytes/100 WB C Auto (Bld)Ordered By: Abdirashid Cano on 02-15-2025 Immature granulocytes/100 WBC (Bld) 0.300 % 0.0-0.9 [facility] Comment on above: IG% - Immature Granu locytes (promyelocytes, myelocytes and metamyelocytes) > 1% indicates that a LEFT SHIFT is Present. Iron measurement (mass/mass) Ordered By: Lakeshia Mas on 02-15-2025 Iron (Unsp spec) [Mass/Mass] 62 ug/dL 50-170 [facility] Iron+Iron Binding Capacityon 02-15-2025 TIBC 197 ug/dL Low 250-450 [facility] Comment on above: Performed By: #### L 503.6550, L100.9950, L503.6030 ####[facility] [address] [place], [address] Ketones Test strip Ql (U)Ord ered By: Abdirashid Cano on 02-15-2025 Ketones Ql (U) 15 mg/dl High Negative [facility] LDHon 02-15-2025 LDH 247 U/L High 84-246 [facility] Comment on above: Performed By: #### L 3100.1850, L504.2610, L501.4700 ####[facility] [address] [place], [address] Laboratory - Chemistry and C hemistry - challengeOrdered By: Abdirashid aCno on 02-15-2025 AST [Catalytic activity/Vol] 33 U/L High <32 [facility] Lactate dehydrogenase (LDH) measurementOrdered By: Lakeshia Mas on 02-15-2025 LDH [Catalytic activity/Vol] 247 U/L High 84-246 [facility] MCV (mean corpuscular volume ) determinationOrdered By: Abdirashid Cano on 02-15-2025 MCV (RBC) [Entitic vol] 88.6 fL 81-99 [facility] Mean corpuscular hemoglobin (MCH) determinationOrdered By: Abdirashid Cano on 02-15-2025 MCH (RBC) [Entitic mass] 32.1 pg High 27.0-32.0 [facility] Mean corpuscular hemoglobin concentration (MCHC) determinationOrdered By: Abdirashid Cano on 02-15-2025 MCHC (RBC) [Mass/Vol] 36.3 g/dL High 32-36 [facility] Mean platelet volume determi nationOrdered By: Abdirashid Cano on 02-15-2025 Platelet mean volume (Bld) [Entitic vol] 9.6 fL 6.2-12.0 [facility] Microscopic analysis of urin e for red blood cells (RBC)Ordered By: Abdirashid Cano on 02-15-2025 Microscopic analysis of urine for red blood cells (RBC) 0-5 SEEN /hpf 0-5 [facility] Monocyte percentageOrdered B y: Abdirashid Cano on 02-15-2025 Monocytes/100 WBC (Bld) 8.7 % 0-10 [facility] Mucus LM Ql (Urine sed)Order ed By: Abdirashid Cano on 02-15-2025 Mucus Ql (Urine sed) 0 SEEN /hpf [facility] Neutrophil percentageOrdered By: Abdirashid Cano on 02-15-2025 Neutrophils/100 WBC (Bld) 50.2 % 47-70 [facility] Nitrite Test strip Ql (U)Ord ered By: Abdirashid Cano on 02-15-2025 Nitrite Ql (U) Negative Negative [facility] No Panel InformationOrdered By: Lakeshia Mas on 02-15-2025 Unsaturated Iron Binding Capacity 135 ug/dL Low 228-428 [facility] Nucleated red blood cell per centageOrdered By: Abdirashid Cano on 02-15-2025 Nucleated RBC/100 WBC (Bld) [Ratio] 0 % 0-5 [facility] Platelet countOrdered By: Anurag Cano on 02-15-2025 Platelets (Bld) [#/Vol] 258 10*3/uL 150-450 [facility] Potassium measurement (mass/ volume)Ordered By: Abdirashid Cano on 02-15-2025 Potassium (Unsp spec) [Mass/Vol] 3.7 mmol/L 3.3-5.1 [facility] Protein Test strip Ql (U)Ord ered By: Abdirashid Cano on 02-15-2025 Protein Ql (U) 30 mg/dl High Negative [facility] RBC Auto (Bld) [#/Vol]Ordere d By: Abdirashid Cano on 02-15-2025 RBC (Bld) [#/Vol] 2.71 10*6/uL Low 4.2-5.4 [facility] Retic Panelon 02-15-2025 IM RET FRACTION 12.50 Normal 3.00-15.90 [facility] Comment on above: Performed By: #### L 503.6550, L100.9950, L503.6030 ####[facility] [address] [place], [address] RET-HE 35.7 pg High 30-35 [facility] Comment on above: Performed By: #### L 503.6550, L100.9950, L503.6030 ####[facility] [address] [place], [address] Retic Count 4.81 High 0.5-1.5 [facility] Comment on above: Performed By: #### L 503.6550, L100.9950, L503.6030 ####[facility] [address] [place], [address] Reticulocyte hemoglobin equi valent (RET-He) measurementOrdered By: Lakeshia Mas on 02-15-2025 Hemoglobin (Reticulocytes) [Entitic mass] 35.7 pg High 30-35 [facility] Reticulocytes Auto (Bld) [#/ Vol]Ordered By: Lakeshia Mas on 02-15-2025 Reticulocytes/100 RBC (Bld) 4.81 % High 0.5-1.5 [facility] Serum creatinine measurement (mass/volume)Ordered By: Abdirashid Cano on 02-15-2025 Creatinine [Mass/Vol] 0.76 mg/dL 0.70-1.20 [facility] Serum globulin measurementOr dered By: Abdirashid Cano on 02-15-2025 Globulin (S) [Mass/Vol] 3.7 g/dL 2.2-4.2 [facility] Serum glucose measurement (m ass/volume)Ordered By: Abdirashid Cano on 02-15-2025 Glucose [Mass/Vol] 155 mg/dL High 70-99 [facility] Serum or plasma alanine cornejo otransferase (ALT) measurementOrdered By: Abdirashid Cano on 02-15-2025 ALT [Catalytic activity/Vol] U/L <35 [facility] Serum or plasma albumin sabino urement (mass/volume)Ordered By: Abdirashid Cano on 02-15-2025 Albumin [Mass/Vol] 3.0 g/dL Low 3.4-4.8 [facility] Serum or plasma albumin/glob ulin mass ratioOrdered By: Abdirashid Cano on 02-15-2025 Albumin/Globulin [Mass ratio] 0.8 {ratio} Low 0.9-2.4 [facility] Serum or plasma alkaline shaista sphatase measurementOrdered By: Abdirashid Cano on 02-15-2025 ALP [Catalytic activity/Vol] 77 U/L 35-104 [facility] Serum or plasma calcium sabino urement (mass/volume)Ordered By: Abdirashid Cano on 02-15-2025 Calcium [Mass/Vol] 8.7 mg/dL 7.6-11.0 [facility] Serum or plasma ferritin uzma surement (mass/volume)Ordered By: Lakeshia Mas on 02-15-2025 Ferritin [Mass/Vol] 150 ng/mL 22-378 [facility] Serum or plasma iron saturat ion measurement (mass fraction)Ordered By: Lakeshia Mas on 02-15-2025 Iron saturation [Mass fraction] 32.0 % 13-59 [facility] Comment on above: Previous reported re sult: 32.0 %Edited by: CHACHA on 02/15/25:213 Serum or plasma urea nitroge n measurement (mass/volume)Ordered By: Abdirashid Cano on 02-15-2025 Urea nitrogen [Mass/Vol] 19 mg/dL 4-19 [facility] Sodium levelOrdered By: Judith Cano on 02-15-2025 Sodium [Moles/Vol] 133 mmol/L 133-145 [facility] Squamous epithelial cells de tection in urine sediment by light microscopyOrdered By: Abdirashid Cano on 02-15-2025 Epithelial cells.squamous LM Ql (Urine sed) 5-10 SEEN /hpf 5-10 [facility] Total proteinOrdered By: Ronak Cano on 02-15-2025 Protein [Mass/Vol] 6.8 g/dL 5.9-8.4 [facility] Urinalysis, Completeon 02-15 EPI,SQUAMOUS 5-10 SEEN Normal 5-10 [facility] Comment on above: Order Comment: MELVIN TER SPECIMEN Performed By: #### L 400.0001 ####[facility] [address] [place], [address] RBC 0-5 SEEN Normal 0-5 [facility] Comment on above: Order Comment: MELVIN TER SPECIMEN Performed By: #### L 400.0001 ####[facility] [address] [place], [address] WBC 0-5 SEEN Normal 0-5 [facility] Comment on above: Order Comment: MELVIN TER SPECIMEN Performed By: #### L 400.0001 ####[facility] [address] [place], [address] BACTERIA 0 SEEN Normal None Seen [facility] Comment on above: Order Comment: MELVIN TER SPECIMEN Performed By: #### L 400.0001 ####[facility] [address] [place], [place], [address] Mucus Ql (Urine sed) [address] [facility] Comment on above: Order Comment: [facility] SPECIMEN Performed By: #### L 400.0001 ####[facility] [address] [place], [place], [id number] Urine clarityOrdered By: Ronak Cano on 02-15-2025 Clarity (U) Clear Clear [facility] Urine color determinationOrd ered By: Abdirashid Cano on 02-15-2025 Color (U) Straw Yellow [facility] Urine glucose detectionOrder ed By: Abdirashid Cano on 02-15-2025 Glucose Ql (U) Normal mg/dl Normal [facility] Urine leukocyte esterase det ection by dipstickOrdered By: Abdirashid Cano on 02-15-2025 Leukocyte esterase Test strip Ql (U) Negative Negative [facility] Urine pHOrdered By: Abdirashid walden on 02-15-2025 pH (U) 6.5 [pH] 5.0 - 8.0 [facility] Urine sediment bacteria coun t by microscopy (number/high power field)Ordered By: Abdirashid Cano on 02-15-2025 Bacteria LM.HPF (Urine sed) [#/Area] 0 /[HPF] None Seen [facility] Urine specific gravity measu rementOrdered By: Abdirashid Cano on 02-15-2025 Specific gravity (U) [Rel density] 1.010 1.002-1.030 [facility] Urine urobilinogen measureme ntOrdered By: Abdirashid Cnao on 02-15-2025 Urobilinogen Ql (U) 8 mg/dl High Normal [facility] White blood cell (WBC) count Ordered By: Abdirashid Cano on 02-15-2025 WBC (Bld) [#/Vol] 9.1 10*3/uL 4.4-11.0 [facility] White blood cell countOrdere d By: Abdirashid Cano on 02-15-2025 White blood cell count 0-5 SEEN /hpf 0-5 [facility] CBC W/Diff, Automatedon 05-0 Absolute Neut Normal 2.0-7.7 [facility] Comment on above: Result Comment: WAS UTO, WILL COME BACK ANOTHER DAY Performed By: #### L 100.0100, L500.4050, L500.4100 ####[facility] [address] [place], [address] HCT Normal 37-47 [facility] Comment on above: Result Comment: WAS UTO, WILL COME BACK ANOTHER DAY Performed By: #### L 100.0100, L500.4050, L500.4100 ####[facility] [address] [place], [address] HGB Normal 12.0-15.0 [facility] Comment on above: Result Comment: WAS UTO, WILL COME BACK ANOTHER DAY Performed By: #### L 100.0100, L500.4050, L500.4100 ####[facility] [address] [place], [address] MCH Normal 27.0-32.0 [facility] Comment on above: Result Comment: WAS UTO, WILL COME BACK ANOTHER DAY Performed By: #### L 100.0100, L500.4050, L500.4100 ####[facility] [address] [place], [address] MCHC Normal 32-36 [facility] Comment on above: Result Comment: WAS UTO, WILL COME BACK ANOTHER DAY Performed By: #### L 100.0100, L500.4050, L500.4100 ####[facility] [address] [place], [address] MCV Normal 81-99 [facility] Comment on above: Result Comment: WAS UTO, WILL COME BACK ANOTHER DAY Performed By: #### L 100.0100, L500.4050, L500.4100 ####[facility] [address] [place], [address] NEUT% Normal 47-70 [facility] Comment on above: Result Comment: WAS UTO, WILL COME BACK ANOTHER DAY Performed By: #### L 100.0100, L500.4050, L500.4100 ####[facility] [address] [place], [address] PLT Normal 150-450 [facility] Comment on above: Result Comment: WAS UTO, WILL COME BACK ANOTHER DAY Performed By: #### L 100.0100, L500.4050, L500.4100 ####[facility] [address] [place], [address] RBC Normal 4.2-5.4 [facility] Comment on above: Result Comment: WAS UTO, WILL COME BACK ANOTHER DAY Performed By: #### L 100.0100, L500.4050, L500.4100 ####[facility] [address] [place], [address] RDW CV Normal 11.6-14.6 [facility] Comment on above: Result Comment: WAS UTO, WILL COME BACK ANOTHER DAY Performed By: #### L 100.0100, L500.4050, L500.4100 ####[facility] [address] [place], [address] RDW SD Normal 35.1-43.9 [facility] Comment on above: Result Comment: WAS UTO, WILL COME BACK ANOTHER DAY Performed By: #### L 100.0100, L500.4050, L500.4100 ####[facility] [address] [place], [address] WBC Normal 4.4-11.0 [facility] Comment on above: Result Comment: WAS UTO, WILL COME BACK ANOTHER DAY Performed By: #### L 100.0100, L500.4050, L500.4100 ####[facility] [address] [place], [address] Comprehensive Metabolic Prof ilon 12-27-2024 ALB Normal 3.4-4.8 [facility] Comment on above: Result Comment: WAS UTO, WILL COME BACK ANOTHER DAY Performed By: #### L 100.0100, L500.4050, L500.4100 ####[facility] [address] [place], [address] ALK PHOS Normal 35-104 [facility] Comment on above: Result Comment: WAS UTO, WILL COME BACK ANOTHER DAY Performed By: #### L 100.0100, L500.4050, L500.4100 ####[facility] [address] [place], [address] ALT Normal <=34 [facility] Comment on above: Result Comment: WAS UTO, WILL COME BACK ANOTHER DAY Performed By: #### L 100.0100, L500.4050, L500.4100 ####[facility] [address] [place], [address] AST Normal <=31 [facility] Comment on above: Result Comment: WAS UTO, WILL COME BACK ANOTHER DAY Performed By: #### L 100.0100, L500.4050, L500.4100 ####[facility] [address] [place], [address] BUN Normal 4-19 [facility] Comment on above: Result Comment: WAS UTO, WILL COME BACK ANOTHER DAY Performed By: #### L 100.0100, L500.4050, L500.4100 ####[facility] [address] [place], [address] BUN/CRE Normal 10-20 [facility] Comment on above: Result Comment: WAS UTO, WILL COME BACK ANOTHER DAY Performed By: #### L 100.0100, L500.4050, L500.4100 ####[facility] [address] [place], [address] Calcium Normal 7.6-11.0 [facility] Comment on above: Result Comment: WAS UTO, WILL COME BACK ANOTHER DAY Performed By: #### L 100.0100, L500.4050, L500.4100 ####[facility] [address] [place], [address] CL Normal 98-108 [facility] Comment on above: Result Comment: WAS UTO, WILL COME BACK ANOTHER DAY Performed By: #### L 100.0100, L500.4050, L500.4100 ####[facility] [address] [place], [address] CO2 Normal 21.0-32.0 [facility] Comment on above: Result Comment: WAS UTO, WILL COME BACK ANOTHER DAY Performed By: #### L 100.0100, L500.4050, L500.4100 ####[facility] [address] [place], [address] CREAT,SERUM Normal 0.70-1.20 [facility] Comment on above: Result Comment: WAS UTO, WILL COME BACK ANOTHER DAY Performed By: #### L 100.0100, L500.4050, L500.4100 ####[facility] [address] [place], [address] eGFR Normal >60 [facility] Comment on above: Result Comment: WAS UTO, WILL COME BACK ANOTHER DAY Performed By: #### L 100.0100, L500.4050, L500.4100 ####[facility] [address] [place], [address] GAP Normal 5-15 [facility] Comment on above: Result Comment: WAS UTO, WILL COME BACK ANOTHER DAY Performed By: #### L 100.0100, L500.4050, L500.4100 ####[facility] [address] [place], [address] GLU Normal 70-99 [facility] Comment on above: Result Comment: WAS UTO, WILL COME BACK ANOTHER DAY Performed By: #### L 100.0100, L500.4050, L500.4100 ####[facility] [address] [place], [address] Potassium Normal 3.3-5.1 [facility] Comment on above: Result Comment: WAS UTO, WILL COME BACK ANOTHER DAY Performed By: #### L 100.0100, L500.4050, L500.4100 ####[facility] [address] [place], [address] T BILI Normal 0.00-1.30 [facility] Comment on above: Result Comment: WAS UTO, WILL COME BACK ANOTHER DAY Performed By: #### L 100.0100, L500.4050, L500.4100 ####[facility] [address] [place], [address] T PROT Normal 5.9-8.4 [facility] Comment on above: Result Comment: WAS UTO, WILL COME BACK ANOTHER DAY Performed By: #### L 100.0100, L500.4050, L500.4100 ####[facility] [address] [place], [address] Comprehensive Metabolic Profil Normal 133-145 [facility] Comment on above: Result Comment: WAS UTO, WILL COME BACK ANOTHER DAY Performed By: #### L 100.0100, L500.4050, L500.4100 ####[facility] [address] [place], [address] Lipid Profileon 12-27-2024 CHOL Normal <=200 [facility] Comment on above: Result Comment: WAS UTO, WILL COME BACK ANOTHER DAY Performed By: #### L 100.0100, L500.4050, L500.4100 ####[facility] [address] [place], [address] CHOL:HDL Normal [facility] Comment on above: Result Comment: WAS UTO, WILL COME BACK ANOTHER DAY Performed By: #### L 100.0100, L500.4050, L500.4100 ####[facility] [address] [place], [address] CLDL Normal [facility] Comment on above: Result Comment: WAS UTO, WILL COME BACK ANOTHER DAY Performed By: #### L 100.0100, L500.4050, L500.4100 ####[facility] [address] [place], [address] HDL Normal [facility] Comment on above: Result Comment: WAS UTO, WILL COME BACK ANOTHER DAY Performed By: #### L 100.0100, L500.4050, L500.4100 ####[facility] [address] [place], [address] TRIG Normal [facility] Comment on above: Result Comment: WAS UTO, WILL COME BACK ANOTHER DAY Performed By: #### L 100.0100, L500.4050, L500.4100 ####[facility] [address] [place], [address] VLDL Normal 5-40 [facility] Comment on above: Result Comment: WAS UTO, WILL COME BACK ANOTHER DAY Performed By: #### L 100.0100, L500.4050, L500.4100 ####[facility] [address] [place], [address] Absolute lymphocyte countOrd ered By: Candelario Santana on 09-25-2024 Lymphocytes Auto (Unsp spec) [#/Vol] 2.89 10*3/uL 0.83-4.51 [facility] Absolute neutrophil countOrd ered By: Candelario Santana on 09-25-2024 Neutrophils (Bld) [#/Vol] 4.6 10*3/uL 2.0-7.7 [facility] Albumin to globulin ratioOrd ered By: Candelario Santana on 09-25-2024 Albumin/Globulin [Mass ratio] 0.7 {ratio} Low 0.9-2.4 [facility] Automated lymphocyte count a s percentage of total leukocytesOrdered By: Candelario Santana on 09-25-2024 Lymphocytes/100 WBC Auto (Unsp spec) 33.8 % -41 [facility] Basophil percentageOrdered B y: Candelario Max on 09-25-2024 Basophils/100 WBC (Bld) 0.5 % 0-1 [facility] Bilirubin, totalOrdered By: Candelario Max on 09-25-2024 Bilirubin [Mass/Vol] 1.10 mg/dL High 0.20-1.00 [facility] Comment on above: For patients on eltr ombopag therapy, use of Dimension [place] TBIL is not recommended. Blood urea nitrogen (BUN)/cr eatinine ratioOrdered By: Candelario Santana on 09-25-2024 Urea nitrogen/Creatinine [Mass ratio] 17.2 mg/mg 10-20 [facility] CBC W/Diff, Automatedon Absolute Lymph 2.89 X10 3/uL Normal 0.83-4.51 [facility] Comment on above: Performed By: #### L 100.0100, L502.0250, L501.9520, L506.1000, L500.4100, L500.4050, L501.9985 ####[facility] [address] [place], [address] Absolute Neut 4.6 X10 3/uL Normal 2.0-7.7 [facility] Comment on above: Performed By: #### L 100.0100, L502.0250, L501.9520, L506.1000, L500.4100, L500.4050, L501.9985 ####[facility] [address] [place], [address] Basophils/100 WBC (Bld) 0.5 % Normal 0-1 [facility] Comment on above: Performed By: #### L 100.0100, L502.0250, L501.9520, L506.1000, L500.4100, L500.4050, L501.9985 ####[facility] [address] [place], [address] Eosinophils/100 WBC (Bld) 2.6 % Normal 0-5 [facility] Comment on above: Performed By: #### L 100.0100, L502.0250, L501.9520, L506.1000, L500.4100, L500.4050, L501.9985 ####[facility] [address] [place], [address] Erythrocyte distribution width (RBC) [Ratio] 13.6 % Normal 11.6-14.6 [facility] Comment on above: Performed By: #### L 100.0100, L502.0250, L501.9520, L506.1000, L500.4100, L500.4050, L501.9985 ####[facility] [address] [place], [address] Hematocrit (Bld) [Volume fraction] 31.9 % Low 37-47 [facility] Comment on above: Performed By: #### L 100.0100, L502.0250, L501.9520, L506.1000, L500.4100, L500.4050, L501.9985 ####[facility] [address] [place], [address] Hemoglobin (Bld) [Mass/Vol] 11.4 g/dL Low 12.0-15.0 [facility] Comment on above: Performed By: #### L 100.0100, L502.0250, L501.9520, L506.1000, L500.4100, L500.4050, L501.9985 ####[facility] [address] [place], [address] IG% 0.200 Normal 0.0-0.9 [facility] Comment on above: Result Comment: IG% - Immature Granulocytes (promyelocytes, myelocytes andmetamyelocytes) > 1% indicates that a LEFT SHIFT is Present. Performed By: #### L 100.0100, L502.0250, L501.9520, L506.1000, L500.4100, L500.4050, L501.9985 ####[facility] [address] [place], [address] Lymphocytes/100 WBC (Bld) 33.8 % Normal 19-41 [facility] Comment on above: Performed By: #### L 100.0100, L502.0250, L501.9520, L506.1000, L500.4100, L500.4050, L501.9985 ####[facility] [address] [place], [address] MCH (RBC) [Entitic mass] 31.6 pg Normal 27.0-32.0 [facility] Comment on above: Performed By: #### L 100.0100, L502.0250, L501.9520, L506.1000, L500.4100, L500.4050, L501.9985 ####[facility] [address] [place], [address] MCHC (RBC) [Mass/Vol] 35.7 g/dL Normal 32-36 [facility] Comment on above: Performed By: #### L 100.0100, L502.0250, L501.9520, L506.1000, L500.4100, L500.4050, L501.9985 ####[facility] [address] [place], [address] MCV (RBC) [Entitic vol] 88.4 fL Normal 81-99 [facility] Comment on above: Performed By: #### L 100.0100, L502.0250, L501.9520, L506.1000, L500.4100, L500.4050, L501.9985 ####[facility] [address] [place], [address] Monocytes/100 WBC (Bld) 9.6 % Normal 0-10 [facility] Comment on above: Performed By: #### L 100.0100, L502.0250, L501.9520, L506.1000, L500.4100, L500.4050, L501.9985 ####[facility] [address] [place], [address] Neutrophils/100 WBC (Bld) 53.3 % Normal 47-70 [facility] Comment on above: Performed By: #### L 100.0100, L502.0250, L501.9520, L506.1000, L500.4100, L500.4050, L501.9985 ####[facility] [address] [place], [address] Nucleated RBC (Bld) [#/Vol] 0 10*3/uL Normal 0-5 [facility] Comment on above: Performed By: #### L 100.0100, L502.0250, L501.9520, L506.1000, L500.4100, L500.4050, L501.9985 ####[facility] [address] [place], [address] Platelet mean volume (Bld) [Entitic vol] 10.0 fL Normal 6.2-12.0 [facility] Comment on above: Performed By: #### L 100.0100, L502.0250, L501.9520, L506.1000, L500.4100, L500.4050, L501.9985 ####[facility] [address] [place], [address] Platelets (Bld) [#/Vol] 225 10*3/uL Normal 150-450 [facility] Comment on above: Performed By: #### L 100.0100, L502.0250, L501.9520, L506.1000, L500.4100, L500.4050, L501.9985 ####[facility] [address] [place], [address] RBC (Bld) [#/Vol] 3.61 10*6/uL Low 4.2-5.4 [facility] Comment on above: Performed By: #### L 100.0100, L502.0250, L501.9520, L506.1000, L500.4100, L500.4050, L501.9985 ####[facility] [address] [place], [address] RDW SD 42.6 fl Normal 35.1-43.9 [facility] Comment on above: Performed By: #### L 100.0100, L502.0250, L501.9520, L506.1000, L500.4100, L500.4050, L501.9985 ####[facility] [address] [place], [address] WBC (Bld) [#/Vol] 8.6 10*3/uL Normal 4.4-11.0 [facility] Comment on above: Performed By: #### L 100.0100, L502.0250, L501.9520, L506.1000, L500.4100, L500.4050, L501.9985 ####[facility] [address] [place], [address] Carbon dioxide measurementOr dered By: Candelario Santana on 09-25-2024 CO2 [Moles/Vol] 24.0 mmol/L 21.0-32.0 [facility] Chloride measurementOrdered By: Candelario Santana on 09-25-2024 Chloride [Moles/Vol] 104 mmol/L 98-107 [facility] Comprehensive Metabolic Prof ilon 09-25-2024 Albumin [Mass/Vol] 3.2 g/dL Normal 3.2-5.0 [facility] Comment on above: Performed By: #### L 100.0100, L502.0250, L501.9520, L506.1000, L500.4100, L500.4050, L501.9985 ####[facility] [address] [place], [address] Albumin/Globulin [Mass ratio] 0.7 {ratio} Low 0.9-2.4 [facility] Comment on above: Performed By: #### L 100.0100, L502.0250, L501.9520, L506.1000, L500.4100, L500.4050, L501.9985 ####[facility] [address] [place], [address] ALK P 89 U/L Normal 45-117 [facility] Comment on above: Performed By: #### L 100.0100, L502.0250, L501.9520, L506.1000, L500.4100, L500.4050, L501.9985 ####[facility] [address] [place], [address] ALT [Catalytic activity/Vol] 18 U/L Normal 13-56 [facility] Comment on above: Performed By: #### L 100.0100, L502.0250, L501.9520, L506.1000, L500.4100, L500.4050, L501.9985 ####[facility] [address] [place], [address] AST [Catalytic activity/Vol] 26 U/L Normal 15-37 [facility] Comment on above: Performed By: #### L 100.0100, L502.0250, L501.9520, L506.1000, L500.4100, L500.4050, L501.9985 ####[facility] [address] [place], [address] Bilirubin [Mass/Vol] 1.10 mg/dL High 0.20-1.00 [facility] Comment on above: Result Comment: For patients on eltrombopag therapy, use of Dimension [place] TBIL is not recommended. Performed By: #### L 100.0100, L502.0250, L501.9520, L506.1000, L500.4100, L500.4050, L501.9985 ####[facility] [address] [place], [address] BUN/CRE 17.2 RATIO Normal 10-20 [facility] Comment on above: Performed By: #### L 100.0100, L502.0250, L501.9520, L506.1000, L500.4100, L500.4050, L501.9985 ####[facility] [address] [place], [address] CA,Total 9.0 mg/dL Normal 8.5-10.1 [facility] Comment on above: Performed By: #### L 100.0100, L502.0250, L501.9520, L506.1000, L500.4100, L500.4050, L501.9985 ####[facility] [address] [place], [address] Chloride [Moles/Vol] 104 mmol/L Normal 98-107 [facility] Comment on above: Performed By: #### L 100.0100, L502.0250, L501.9520, L506.1000, L500.4100, L500.4050, L501.9985 ####[facility] [address] [place], [address] CO2 [Moles/Vol] 24.0 mmol/L Normal 21.0-32.0 [facility] Comment on above: Performed By: #### L 100.0100, L502.0250, L501.9520, L506.1000, L500.4100, L500.4050, L501.9985 ####[facility] [address] [place], [address] Creatinine [Mass/Vol] 0.87 mg/dL Normal 0.55-1.02 [facility] Comment on above: Result Comment: The validity of the calculated GFR GFRAA in patients over70 years has not been determined. Clinical correlation isessential. Performed By: #### L 100.0100, L502.0250, L501.9520, L506.1000, L500.4100, L500.4050, L501.9985 ####[facility] [address] [place], [address] EST GFR - AA 81 mL/min Normal >60 [facility] Comment on above: Result Comment: Afri can [place] GFR Calc Performed By: #### L 100.0100, L502.0250, L501.9520, L506.1000, L500.4100, L500.4050, L501.9985 ####[facility] [address] [place], [place], [phone] GAP 9 Normal 5-15 [facility] Comment on above: Performed By: #### L 100.0100, L502.0250, L501.9520, L506.1000, L500.4100, L500.4050, L501.9985 ####[facility] [address] [place], [address] GFR/1.73 sq M.predicted among non-blacks MDRD (S/P/Bld) [Vol rate/Area] 67 mL/min/{1.73_m2} Normal >60 [facility] Comment on above: Result Comment: Non- GFR Calc Performed By: #### L 100.0100, L502.0250, L501.9520, L506.1000, L500.4100, L500.4050, L501.9985 ####[facility] [address] [place], [place], [phone] Globulin (S) [Mass/Vol] 4.3 g/dL High 2.2-4.2 [facility] Comment on above: Performed By: #### L 100.0100, L502.0250, L501.9520, L506.1000, L500.4100, L500.4050, L501.9985 ####[facility] [address] [place], [address] Glucose [Mass/Vol] 176 mg/dL High 74-106 [facility] Comment on above: Result Comment: Fast ing Glucose result greater than or equal to 126 mg/dLsuggests DIABETES MELLITUS per A.D.A. criteria. Performed By: #### L 100.0100, L502.0250, L501.9520, L506.1000, L500.4100, L500.4050, L501.9985 ####[facility] [address] [place], [address] Potassium [Moles/Vol] 3.3 mmol/L Low 3.5-5.1 [facility] Comment on above: Performed By: #### L 100.0100, L502.0250, L501.9520, L506.1000, L500.4100, L500.4050, L501.9985 ####[facility] [address] [place], [address] Sodium [Moles/Vol] 137 mmol/L Normal 136-145 [facility] Comment on above: Performed By: #### L 100.0100, L502.0250, L501.9520, L506.1000, L500.4100, L500.4050, L501.9985 ####[facility] [address] [place], [address] T PROT 7.5 g/dL Normal 6.4-8.2 [facility] Comment on above: Performed By: #### L 100.0100, L502.0250, L501.9520, L506.1000, L500.4100, L500.4050, L501.9985 ####[facility] [address] [place], [address] Urea nitrogen [Mass/Vol] 15 mg/dL Normal 7-18 [facility] Comment on above: Performed By: #### L 100.0100, L502.0250, L501.9520, L506.1000, L500.4100, L500.4050, L501.9985 ####[facility] [address] [place], [address] Eosinophil percentageOrdered By: Candelario Santana on 09-25-2024 Eosinophils/100 WBC (Bld) 2.6 % 0-5 [facility] Erythrocyte distribution wid th ratioOrdered By: Candelario Santana on 09-25-2024 Erythrocyte distribution width (RBC) [Ratio] 13.6 % 11.6-14.6 [facility] Erythrocyte distribution wid th standard deviationOrdered By: Candelario Santana on 09-25-2024 Erythrocyte distribution width (RBC) [Ratio] 42.6 fl 35.1-43.9 [facility] Glomerular filtration rate ( GFR) estimationOrdered By: Candelario Santana on 09-25-2024 GFR/1.73 sq M.predicted among non-blacks MDRD (S/P/Bld) [Vol rate/Area] 67 mL/min/{1.73_m2} >60 [facility] Comment on above: Non- GFR Calc Glucose measurementOrdered B y: Candelario Santana on 09-25-2024 Glucose [Mass/Vol] 176 mg/dL High 74-106 [facility] Comment on above: Fasting Glucose resu lt greater than or equal to 126 mg/dL suggests DIABETES MELLITUS per A.D.A. criteria. Hematocrit Auto (Bld) [Volum e fraction]Ordered By: Candelario Santana on 09-25-2024 Hematocrit (Bld) [Volume fraction] 31.9 % Low 37-47 [facility] Hemoglobin A1c percentageOrd ered By: Candelario Santana on 09-25-2024 HbA1c (Bld) [Mass fraction] 4.7 % Normal 3.8-5.6 [facility] Comment on above: Normal < 5.7 % Predi abetic 5.7 - 6.4 % Diabetic >or= 6.5 % Please note range changes. Result Comment: Norm al < 5.7 % Prediabetic 5.7 - 6.4 % Diabetic >or= 6.5 % Please note range changes. Performed By: #### L 100.0100, L502.0250, L501.9520, L506.1000, L500.4100, L500.4050, L501.9985 ####[facility] [address] [place], [place], [address] Hemoglobin measurementOrdere d By: Candelario Santana on 09-25-2024 Hemoglobin (Bld) [Mass/Vol] 11.4 g/dL Low 12.0-15.0 [facility] High density lipoprotein (HD L) measurementOrdered By: Candelario Santana on 09-25-2024 Cholesterol in HDL [Mass/Vol] 50 mg/dL >40 [facility] Comment on above: The drugs N-Acetylcy steine and Metamizole may falsely depress this assay. Reference Range HDL <40 mg/dL Low HDL Cholesterol HDL >or= 60 mg/dL High HDL Cholesterol Immature granulocytes/100 WB C Auto (Bld)Ordered By: Candelario Santana on 09-25-2024 Immature granulocytes/100 WBC (Bld) 0.200 % 0.0-0.9 [facility] Comment on above: IG% - Immature Granu locytes (promyelocytes, myelocytes and metamyelocytes) > 1% indicates that a LEFT SHIFT is Present. Laboratory - Chemistry and C hemistry - challengeOrdered By: Candelario Santana on 09-25-2024 AST [Catalytic activity/Vol] 26 U/L 15-37 [facility] Lipid Profileon 09-25-2024 Cholesterol [Mass/Vol] 158 mg/dL Normal 200 [facility] Comment on above: Result Comment: <200 mg/dL Desirable 200-240 mg/dL Borderline >240 mg/dL High Risk Performed By: #### L 100.0100, L502.0250, L501.9520, L506.1000, L500.4100, L500.4050, L501.9985 ####[facility] [address] [place], [address] Cholesterol in HDL [Mass/Vol] 50 mg/dL Normal [facility] Comment on above: Result Comment: The drugs N-Acetylcysteine and Metamizole may falselydepress this assay. Reference Range HDL <40 mg/dL Low HDL Cholesterol HDL >or= 60 mg/dL High HDL Cholesterol Performed By: #### L 100.0100, L502.0250, L501.9520, L506.1000, L500.4100, L500.4050, L501.9985 ####[facility] [address] [place], [address] Cholesterol in LDL [Mass/Vol] 85 mg/dL Normal 0-130 [facility] Comment on above: Performed By: #### L 100.0100, L502.0250, L501.9520, L506.1000, L500.4100, L500.4050, L501.9985 ####[facility] [address] [place], [address] Cholesterol in VLDL [Mass/Vol] 23 mg/dL Normal 5-40 [facility] Comment on above: Performed By: #### L 100.0100, L502.0250, L501.9520, L506.1000, L500.4100, L500.4050, L501.9985 ####[facility] [address] [place], [address] Triglyceride [Mass/Vol] 114 mg/dL Normal [facility] Comment on above: Result Comment: The drugs N-Acetylcysteine and Metamizole may falselydepress this assay.Serum Triglycerides Reference Interval Normal <150 mg/dL Borderline high 150 - 199 mg/dL High 200 - 499 mg/dL Very High > or = 500 mg/dL Performed By: #### L 100.0100, L502.0250, L501.9520, L506.1000, L500.4100, L500.4050, L501.9985 ####[facility] [address] [place], [place], [id number] Low density lipoprotein (LDL ) cholesterol measurementOrdered By: Candelario Santana on 09-25-2024 Cholesterol in LDL [Mass/Vol] 85 mg/dL 0-130 [facility] MCV (mean corpuscular volume ) determinationOrdered By: Candelario Santana on 09-25-2024 MCV (RBC) [Entitic vol] 88.4 fL 81-99 [facility] Mean corpuscular hemoglobin (MCH) determinationOrdered By: Candelario Santana on 09-25-2024 MCH (RBC) [Entitic mass] 31.6 pg 27.0-32.0 [facility] Mean corpuscular hemoglobin concentration (MCHC) determinationOrdered By: Candelario Santana on 09-25-2024 MCHC (RBC) [Mass/Vol] 35.7 g/dL 32-36 [facility] Mean platelet volume determi nationOrdered By: Candelario Santana on 09-25-2024 Platelet mean volume (Bld) [Entitic vol] 10.0 fL 6.2-12.0 [facility] Microalb:Creat Ratio,Random URon 09-25-2024 MALB:CRE Normal <30 mg/g CRE [facility] Comment on above: Result Comment: UTO Performed By: #### L 100.0100, L502.0250, L501.9520, L506.1000, L500.4100, L500.4050, L501.9985 ####[facility] [address] [place], [place], [id number] MICROALBUMIN,UR Normal NO RANGE EST. [facility] Comment on above: Result Comment: UTO Performed By: #### L 100.0100, L502.0250, L501.9520, L506.1000, L500.4100, L500.4050, L501.9985 ####[facility] [address] [place], [place], [phone] Monocyte percentageOrdered B y: Candelario Santana on 09-25-2024 Monocytes/100 WBC (Bld) 9.6 % 0-10 [facility] Neutrophil percentageOrdered By: Candelario Santana on 09-25-2024 Neutrophils/100 WBC (Bld) 53.3 % 47-70 [facility] Nucleated red blood cell per centageOrdered By: Candelario Santana on 09-25-2024 Nucleated RBC/100 WBC (Bld) [Ratio] 0 % 0-5 [facility] Platelet countOrdered By: Ben Santana on 09-25-2024 Platelets (Bld) [#/Vol] 225 10*3/uL 150-450 [facility] Potassium measurementOrdered By: Candelario Santana on 09-25-2024 Potassium [Moles/Vol] 3.3 mmol/L Low 3.5-5.1 [facility] RBC Auto (Bld) [#/Vol]Ordere d By: Candelario Santana on 09-25-2024 RBC (Bld) [#/Vol] 3.61 10*6/uL Low 4.2-5.4 [facility] Serum anion gap measurementO rdered By: Candelario Santana on 09-25-2024 Anion gap [Moles/Vol] 9 mmol/L 5-15 [facility] Serum globulin measurementOr dered By: Candelario Santana on 09-25-2024 Globulin (S) [Mass/Vol] 4.3 g/dL High 2.2-4.2 [facility] Serum or plasma alanine cornejo otransferase (ALT) measurementOrdered By: Candelario Santana 09-25-2024 ALT [Catalytic activity/Vol] 18 U/L 13-56 [facility] Serum or plasma albumin sabino urement (mass/volume)Ordered By: Candelario Santana on 09-25-2024 Albumin [Mass/Vol] 3.2 g/dL 3.2-5.0 [facility] Serum or plasma alkaline shaista sphatase measurementOrdered By: Candelario Santana 09-25-2024 ALP [Catalytic activity/Vol] 89 U/L 45-117 [facility] Serum or plasma calcium sabino urement (mass/volume)Ordered By: Candelario Santana 09-25-2024 Calcium [Mass/Vol] 9.0 mg/dL 8.5-10.1 [facility] Serum or plasma cholesterol measurement (mass/volume)Ordered By: Candelario Santana on 09-25-2024 Cholesterol [Mass/Vol] 158 mg/dL <200 [facility] Comment on above: <200 mg/dL Desirable 200-240 mg/dL Borderline >240 mg/dL High Risk Serum or plasma creatinine m easurement (mass/volume)Ordered By: Candelario Santana on 09-25-2024 Creatinine [Mass/Vol] 0.87 mg/dL 0.55-1.02 [facility] Comment on above: The validity of the calculated GFR & GFRAA in patients over 70 years has not been determined. Clinical correlation is essential. Serum or plasma thyroid stim ulating hormone (TSH) measurement (units/volume)Ordered By: Candelario Santana on 09-25-2024 TSH Qn 5.250 uIU/mL High 0.358-3.740 [facility] Serum or plasma urea nitroge n measurement (mass/volume)Ordered By: Candelario Santana on 09-25-2024 Urea nitrogen [Mass/Vol] 15 mg/dL 7-18 [facility] Sodium levelOrdered By: Candelario Santana on 09-25-2024 Sodium [Moles/Vol] 137 mmol/L 136-145 [facility] Thyroid Stim Hormone (TSH)on 09-25-2024 TSH 5.250 uIU/mL High 0.358-3.740 [facility] Comment on above: Performed By: #### L 100.0100, L502.0250, L501.9520, L506.1000, L500.4100, L500.4050, L501.9985 ####[facility] [id number] [place], [place], [id number] Total proteinOrdered By: Candelario Santana on 09-25-2024 Protein [Mass/Vol] 7.5 g/dL 6.4-8.2 [facility] Triglycerides measurementOrd ered By: Candelario Santana on 09-25-2024 Triglyceride [Mass/Vol] 114 mg/dL <199 [facility] Comment on above: The drugs N-Acetylcy steine and Metamizole may falsely depress this assay.Serum Triglycerides Reference Interval Normal <150 mg/dL Borderline high 150 - 199 mg/dL High 200 - 499 mg/dL Very High > or = 500 mg/dL Very low density lipoprotein (VLDL) cholesterol measurementOrdered By: Candelario Santana on 09-25-2024 Very low density lipoprotein (VLDL) cholesterol measurement 23 mg/dL 5-40 [facility] Vitamin D,25 Hydroxyon 09-25 Vitamin D 25-OH 26.7 ng/mL Normal [facility] Comment on above: Result Comment: Jojo min D 25(OH) Status Range Deficiency <20 ng/mL (50nmol/L) Insufficiency 20 - 30 ng/mL (50 - 75 nmol/L) Sufficiency 30 - 100 ng/mL (75 - 250 nmol/L) Toxicity >100 ng/mL (>250 nmol/L) Performed By: #### L 100.0100, L502.0250, L501.9520, L506.1000, L500.4100, L500.4050, L501.9985 ####[facility] [id number] [place], [place], [id number] White blood cell (WBC) count Ordered By: Candelario Santana on 09-25-2024 WBC (Bld) [#/Vol] 8.6 10*3/uL 4.4-11.0 [facility] Absolute lymphocyte countOrd ered By: Candelario Santana on 12-20-2023 Lymphocytes Auto (Unsp spec) [#/Vol] 2.35 10*3/uL 0.83-4.51 [facility] Automated lymphocyte count a s percentage of total leukocytesOrdered By: Candelario Santana on 12-20-2023 Lymphocytes/100 WBC Auto (Unsp spec) 40.9 % 19-41 [facility] Basophil percentageOrdered B y: Candelario Santana on 12-20-2023 Basophils/100 WBC (Bld) 0.7 % 0-1 [facility] Bilirubin [Mass/Vol] 1.10 mg/dL 0.20-1.00 [facility] Comment on above: For patients on eltr ombopag therapy, use of Dimension [place] TBIL is not recommended. Chloride [Moles/Vol] 107 mmol/L 98-107 [facility] Cholesterol [Mass/Vol] 144 mg/dL <200 [facility] Comment on above: <200 mg/dL Desirable 200-240 mg/dL Borderline >240 mg/dL High Risk Eosinophils/100 WBC (Bld) 2.6 % 0-5 [facility] Glucose [Mass/Vol] 284 mg/dL 74-106 [facility] Comment on above: Glucose result great er than or equal to 200 mg/dLsuggests DIABETES MELLITUS per A.D.A. criteria. Hemoglobin (Bld) [Mass/Vol] 10.6 g/dL 12.0-15.0 [facility] Monocytes/100 WBC (Bld) 9.9 % 0-10 [facility] Neutrophils (Bld) [#/Vol] 2.6 10*3/uL 2.0-7.7 [facility] Neutrophils/100 WBC (Bld) 45.7 % 47-70 [facility] Potassium [Moles/Vol] 3.6 mmol/L 3.5-5.1 [facility] Protein [Mass/Vol] 7.3 g/dL 6.4-8.2 [facility] Sodium [Moles/Vol] 137 mmol/L 136-145 [facility] Triglyceride [Mass/Vol] 106 mg/dL <199 [facility] Comment on above: The drugs N-Acetylcy steine and Metamizole may falsely depress this assay.Serum Triglycerides Reference Interval Normal <150 mg/dL Borderline high 150 - 199 mg/dL High 200 - 499 mg/dL Very High > or = 500 mg/dL WBC (Bld) [#/Vol] 5.7 10*3/uL 4.4-11.0 [facility] Determination of erythrocyte mean corpuscular volume (MCV)Ordered By: Candelario Santana on 12-20-2023 MCV (RBC) [Entitic vol] 87.8 fL 81-99 [facility] Erythrocyte distribution wid th ratioOrdered By: Candelario Santana on 12-20-2023 Erythrocyte distribution width (RBC) [Ratio] 13.1 % 11.6-14.6 [facility] Erythrocyte distribution wid th standard deviationOrdered By: Candelario Santana on 12-20-2023 Erythrocyte distribution width (RBC) [Entitic vol] 41.3 fL 35.1-43.9 [facility] Hematocrit Auto (Bld) [Volum e fraction]Ordered By: Candelario Santana on 12-20-2023 Hematocrit (Bld) [Volume fraction] 30.1 % 37-47 [facility] Immature granulocytes/100 WB C Auto (Bld)Ordered By: Candelario Santana on 12-20-2023 Immature granulocytes/100 WBC (Bld) 0.200 % 0.0-0.9 [facility] Comment on above: IG% - Immature Granu locytes (promyelocytes, myelocytes and metamyelocytes) > 1% indicates that a LEFT SHIFT is Present. Laboratory - Chemistry and C hemistry - challengeOrdered By: Candelario Santana on 12-20-2023 Albumin/Globulin [Mass ratio] 0.7 {ratio} 0.9-2.4 [facility] ALP [Catalytic activity/Vol] 83 U/L 45-117 [facility] ALT [Catalytic activity/Vol] 17 U/L 13-56 [facility] Cholesterol in HDL [Mass/Vol] 45 mg/dL >40 [facility] Comment on above: The drugs N-Acetylcy steine and Metamizole may falsely depress this assay. Reference Range HDL <40 mg/dL Low HDL Cholesterol HDL >or= 60 mg/dL High HDL Cholesterol Cholesterol in LDL [Mass/Vol] 78 mg/dL 0-130 [facility] CO2 [Moles/Vol] 25.0 mmol/L 21.0-32.0 [facility] Globulin (S) [Mass/Vol] 4.3 g/dL 2.2-4.2 [facility] Urea nitrogen/Creatinine [Mass ratio] 9.3 mg/mg 10-20 [facility] Laboratory - Hematology and Cell countsOrdered By: Candelario Santana on 12-20-2023 MCH (RBC) [Entitic mass] 30.9 pg 27.0-32.0 [facility] MCHC (RBC) [Mass/Vol] 35.2 g/dL 32-36 [facility] Nucleated RBC/100 WBC (Bld) [Ratio] 0 % 0-5 [facility] Platelet mean volume (Bld) [Entitic vol] 9.9 fL 6.2-12.0 [facility] Platelets (Bld) [#/Vol] 183 10*3/uL 150-450 [facility] No Panel InformationOrdered By: Candelario Santana on 12-20-2023 Estimated GFR (MDRD) Amer 96 mL/min >60 [facility] Comment on above: GFR Calc Estimated GFR (MDRD) Non-Af Amer 80 mL/min >60 [facility] Comment on above: Non- GFR Calc Vitamin D 25-Hydroxy 19.3 ng/mL [facility] Comment on above: Vitamin D 25(OH) Sta tus Range Deficiency <20 ng/mL (50nmol/L) Insufficiency 20 - 30 ng/mL (50 - 75 nmol/L) Sufficiency 30 - 100 ng/mL (75 - 250 nmol/L) Toxicity >100 ng/mL (>250 nmol/L) VLDL Cholesterol 21 mg/dL 5-40 [facility] RBC Auto (Bld) [#/Vol]Ordere d By: Candelario Santana on 12-20-2023 RBC (Bld) [#/Vol] 3.43 10*6/uL 4.2-5.4 [facility] Serum or plasma calcium sabino urement (mass/volume)Ordered By: Candelario Santana on 12-20-2023 Calcium [Mass/Vol] 8.5 mg/dL 8.5-10.1 [facility] Serum or plasma creatinine m easurement (mass/volume)Ordered By: Candelario Santana 12-20-2023 Creatinine [Mass/Vol] 0.75 mg/dL 0.55-1.02 [facility] Comment on above: The validity of the calculated GFR & GFRAA in patients over 70 years has not been determined. Clinical correlation is essential. Serum or plasma thyroid stim ulating hormone (TSH) measurement (units/volume)Ordered By: Candelario Santana on 12-20-2023 TSH Qn 2.06 uIU/mL 0.358-3.74 [facility] Serum or plasma urea nitroge n measurement (mass/volume)Ordered By: Candelario Santana 12-20-2023 Urea nitrogen [Mass/Vol] 7 mg/dL 7-18 [facility] Thin prep Papanicolaou smear with manual screeningOrdered By: Candelario Santana 12-20-2023 Thin prep Papanicolaou smear with manual screening 3.0 g/dL 3.2-5.0 [facility] Thin prep Papanicolaou smear with manual screening 26 U/L 15-37 [facility] Thin prep Papanicolaou smear with manual screening 5 5-15 [facility] Whole blood hemoglobin A1c/t otal hemoglobin ratio (mass fraction)Ordered By: Candelario Santana on 12-20-2023 HbA1c (Bld) [Mass fraction] 7.2 % 3.8-5.6 [facility] Comment on above: Normal < 5.7 % Predi abetic 5.7 - 6.4 % Diabetic >or= 6.5 % Please note range changes. Absolute lymphocyte countOrd ered By: Candelario Max on 09-21-2023 Lymphocytes Auto (Unsp spec) [#/Vol] 2.70 10*3/uL 0.83-4.51 [facility] Automated lymphocyte count a s percentage of total leukocytesOrdered By: Candelario Max on 09-21-2023 Lymphocytes/100 WBC Auto (Unsp spec) 46.9 % 19-41 [facility] Basophil percentageOrdered B y: Candelario Santana on 09-21-2023 Basophils/100 WBC (Bld) 0.7 % 0-1 [facility] Bilirubin [Mass/Vol] 1.00 mg/dL 0.20-1.00 [facility] Comment on above: For patients on eltr ombopag therapy, use of Dimension [place] TBIL is not recommended. Chloride [Moles/Vol] 106 mmol/L 98-107 [facility] Cholesterol [Mass/Vol] 154 mg/dL <200 [facility] Comment on above: <200 mg/dL Desirable 200-240 mg/dL Borderline >240 mg/dL High Risk Eosinophils/100 WBC (Bld) 3.1 % 0-5 [facility] Glucose [Mass/Vol] 227 mg/dL 74-106 [facility] Comment on above: Glucose result great er than or equal to 200 mg/dLsuggests DIABETES MELLITUS per A.D.A. criteria. Hemoglobin (Bld) [Mass/Vol] 10.5 g/dL 12.0-15.0 [facility] Monocytes/100 WBC (Bld) 8.5 % 0-10 [facility] Neutrophils (Bld) [#/Vol] 2.3 10*3/uL 2.0-7.7 [facility] Neutrophils/100 WBC (Bld) 40.6 % 47-70 [facility] Potassium [Moles/Vol] 3.6 mmol/L 3.5-5.1 [facility] Protein [Mass/Vol] 7.5 g/dL 6.4-8.2 [facility] Sodium [Moles/Vol] 135 mmol/L 136-145 [facility] Triglyceride [Mass/Vol] 94 mg/dL <199 [facility] Comment on above: The drugs N-Acetylcy steine and Metamizole may falsely depress this assay.Serum Triglycerides Reference Interval Normal <150 mg/dL Borderline high 150 - 199 mg/dL High 200 - 499 mg/dL Very High > or = 500 mg/dL WBC (Bld) [#/Vol] 5.8 10*3/uL 4.4-11.0 [facility] Determination of erythrocyte mean corpuscular volume (MCV)Ordered By: Candelario Santana on 09-21-2023 MCV (RBC) [Entitic vol] 92.0 fL 81-99 [facility] Erythrocyte distribution wid th ratioOrdered By: Candelario Santana on 09-21-2023 Erythrocyte distribution width (RBC) [Ratio] 14.6 % 11.6-14.6 [facility] Erythrocyte distribution wid th standard deviationOrdered By: Candelario Santana on 09-21-2023 Erythrocyte distribution width (RBC) [Entitic vol] 48.9 fL 35.1-43.9 [facility] Hematocrit Auto (Bld) [Volum e fraction]Ordered By: Candelario Santana 09-21-2023 Hematocrit (Bld) [Volume fraction] 30.9 % 37-47 [facility] High density lipoprotein (HD L) measurementOrdered By: Candelario Santana on 09-21-2023 Cholesterol in HDL (Body fld) [Mass/Vol] 41 mg/dL >40 [facility] Comment on above: The drugs N-Acetylcy steine and Metamizole may falsely depress this assay. Reference Range HDL <40 mg/dL Low HDL Cholesterol HDL >or= 60 mg/dL High HDL Cholesterol Immature granulocytes/100 WB C Auto (Bld)Ordered By: Candelario Santana on 09-21-2023 Immature granulocytes/100 WBC (Bld) 0.200 % 0.0-0.9 [facility] Comment on above: IG% - Immature Granu locytes (promyelocytes, myelocytes and metamyelocytes) > 1% indicates that a LEFT SHIFT is Present. Laboratory - Chemistry and C hemistry - challengeOrdered By: Candelario Santana on 09-21-2023 Albumin/Globulin [Mass ratio] 0.7 {ratio} 0.9-2.4 [facility] ALP [Catalytic activity/Vol] 93 U/L 45-117 [facility] ALT [Catalytic activity/Vol] 23 U/L 13-56 [facility] CO2 [Moles/Vol] 22.0 mmol/L 21.0-32.0 [facility] Globulin (S) [Mass/Vol] 4.4 g/dL 2.2-4.2 [facility] Urea nitrogen/Creatinine [Mass ratio] 13.9 mg/mg 10-20 [facility] Laboratory - Hematology and Cell countsOrdered By: Candelario Santana on 09-21-2023 MCH (RBC) [Entitic mass] 31.3 pg 27.0-32.0 [facility] MCHC (RBC) [Mass/Vol] 34.0 g/dL 32-36 [facility] Nucleated RBC/100 WBC (Bld) [Ratio] 0 % 0-5 [facility] Platelets (Bld) [#/Vol] 185 10*3/uL 150-450 [facility] Low density lipoprotein (LDL ) cholesterol measurementOrdered By: Candelario Santana on 09-21-2023 Cholesterol in LDL (Body fld) [Moles/Vol] 94 mg/dL 0-130 [facility] No Panel InformationOrdered By: Candelario Santana on 09-21-2023 Estimated GFR (MDRD) Amer 101 mL/min >60 [facility] Comment on above: GFR Calc Estimated GFR (MDRD) Non-Af Amer 84 mL/min >60 [facility] Comment on above: Non- GFR Calc Vitamin D 25-Hydroxy 27.7 ng/mL [facility] Comment on above: Vitamin D 25(OH) Sta tus Range Deficiency <20 ng/mL (50nmol/L) Insufficiency 20 - 30 ng/mL (50 - 75 nmol/L) Sufficiency 30 - 100 ng/mL (75 - 250 nmol/L) Toxicity >100 ng/mL (>250 nmol/L) Platelet mean volume Hua-Ec ker (Bld) [Entitic vol]Ordered By: Candelario Santana on 09-21-2023 Platelet mean volume (Bld) [Entitic vol] 9.8 fL 6.2-12.0 [facility] RBC Auto (Bld) [#/Vol]Ordere d By: Candelario Santana on 09-21-2023 RBC (Bld) [#/Vol] 3.36 10*6/uL 4.2-5.4 [facility] Serum or plasma calcium sabino urement (mass/volume)Ordered By: Candelario Santana on 09-21-2023 Calcium [Mass/Vol] 8.9 mg/dL 8.5-10.1 [facility] Serum or plasma creatinine m easurement (mass/volume)Ordered By: Candelario Santana on 09-21-2023 Creatinine [Mass/Vol] 0.72 mg/dL 0.55-1.02 [facility] Comment on above: The validity of the calculated GFR & GFRAA in patients over 70 years has not been determined. Clinical correlation is essential. Serum or plasma thyroid stim ulating hormone (TSH) measurement (units/volume)Ordered By: Candelario Santana 09-21-2023 TSH Qn 2.20 uIU/mL 0.358-3.74 [facility] Serum or plasma urea nitroge n measurement (mass/volume)Ordered By: Candelario Santana 09-21-2023 Urea nitrogen [Mass/Vol] 10 mg/dL 7-18 [facility] Thin prep Papanicolaou smear with manual screeningOrdered By: Candelario Santana 09-21-2023 Thin prep Papanicolaou smear with manual screening 3.1 g/dL 3.2-5.0 [facility] Thin prep Papanicolaou smear with manual screening 29 U/L 15-37 [facility] Thin prep Papanicolaou smear with manual screening 7 5-15 [facility] Very low density lipoprotein (VLDL) cholesterol measurementOrdered By: Candelario Santana on 09-21-2023 Cholesterol in VLDL Calc [Moles/Vol] 19 mg/dL 5-40 [facility] Absolute lymphocyte countOrd ered By: Candelario Santana on 06-15-2023 Lymphocytes Auto (Unsp spec) [#/Vol] 3.02 10*3/uL 0.83-4.51 [facility] Basophil percentageOrdered B y: Candelario Santana on 06-15-2023 Basophils/100 WBC (Bld) 0.7 % 0-1 [facility] Bilirubin [Mass/Vol] 1.30 mg/dL 0.20-1.00 [facility] Comment on above: For patients on eltr ombopag therapy, use of Dimension [place] TBIL is not recommended. Chloride [Moles/Vol] 105 mmol/L 98-107 [facility] Cholesterol [Mass/Vol] 198 mg/dL <200 [facility] Comment on above: <200 mg/dL Desirable 200-240 mg/dL Borderline >240 mg/dL High Risk Eosinophils/100 WBC (Bld) 2.8 % 0-5 [facility] Glucose [Mass/Vol] 385 mg/dL 74-106 [facility] Comment on above: Glucose result great er than or equal to 200 mg/dLsuggests DIABETES MELLITUS per A.D.A. criteria. Neutrophils (Bld) [#/Vol] 3.5 10*3/uL 2.0-7.7 [facility] Neutrophils/100 WBC (Bld) 46.3 % 47-70 [facility] Potassium [Moles/Vol] 3.5 mmol/L 3.5-5.1 [facility] Protein [Mass/Vol] 7.7 g/dL 6.4-8.2 [facility] Sodium [Moles/Vol] 135 mmol/L 136-145 [facility] Triglyceride [Mass/Vol] 93 mg/dL <199 [facility] Comment on above: The drugs N-Acetylcy steine and Metamizole may falsely depress this assay.Serum Triglycerides Reference Interval Normal <150 mg/dL Borderline high 150 - 199 mg/dL High 200 - 499 mg/dL Very High > or = 500 mg/dL WBC (Bld) [#/Vol] 7.6 10*3/uL 4.4-11.0 [facility] Blood erythrocytes count (nu mber/volume)Ordered By: Candelario Santana on 06-15-2023 RBC (Bld) [#/Vol] 3.94 10*6/uL 4.2-5.4 [facility] Blood hemoglobin measurement (mass/volume)Ordered By: Candelario Santana on 06-15-2023 Hemoglobin (Bld) [Mass/Vol] 12.0 g/dL 12.0-15.0 [facility] Blood lymphocytes/100 leukoc ytesOrdered By: Candelario Santana on 06-15-2023 Lymphocytes/100 WBC (Bld) 39.7 % 19-41 [facility] Blood monocytes/100 leukocyt esOrdered By: Candelario Santana on 06-15-2023 Monocytes/100 WBC (Bld) 10.2 % 0-10 [facility] Blood platelet mean volumeOr dered By: Candelario Santana on 06-15-2023 Platelet mean volume (Bld) [Entitic vol] 10.2 fL 6.2-12.0 [facility] Determination of erythrocyte mean corpuscular volume (MCV)Ordered By: Candelario Santana on 06-15-2023 MCV (RBC) [Entitic vol] 87.6 fL 81-99 [facility] Hematocrit Auto (Bld) [Volum e fraction][facility] Hematocrit (Bld) [Volume fraction] 34.5 % 37-47 [facility] Laboratory - Chemistry and C hemistry - challengeOrdered By: Candelario Santana on 06-15-2023 ALP [Catalytic activity/Vol] 99 U/L 45-117 [facility] ALT [Catalytic activity/Vol] 18 U/L 13-56 [facility] CO2 [Moles/Vol] 18.0 mmol/L 21.0-32.0 [facility] Globulin (S) [Mass/Vol] 4.6 g/dL 2.2-4.2 [facility] Urea nitrogen/Creatinine [Mass ratio] 13.8 mg/mg 10-20 [facility] Laboratory - Hematology and Cell countsOrdered By: Candelario Santana on 06-15-2023 Erythrocyte distribution width (RBC) [Entitic vol] 42.4 fL 35.1-43.9 [facility] Erythrocyte distribution width (RBC) [Ratio] 13.2 % 11.6-14.6 [facility] Immature granulocytes/100 WBC (Bld) 0.300 % 0.0-0.9 [facility] Comment on above: IG% - Immature Granu locytes (promyelocytes, myelocytes and metamyelocytes) > 1% indicates that a LEFT SHIFT is Present. MCH (RBC) [Entitic mass] 30.5 pg 27.0-32.0 [facility] Nucleated RBC/100 WBC (Bld) [Ratio] 0 % 0-5 [facility] MCHC Auto (RBC) [Mass/Vol]Or dered By: Candelario Santana on 06-15-2023 MCHC (RBC) [Mass/Vol] 34.8 g/dL 32-36 [facility] No Panel InformationOrdered By: Candelario Santana on 06-15-2023 Estimated GFR (MDRD) Amer 90 mL/min >60 [facility] Comment on above: GFR Calc Estimated GFR (MDRD) Non-Af Amer 74 mL/min >60 [facility] Comment on above: Non- GFR Calc Thyroid Stimulating Hormone (TSH) 5.09 uIU/mL 0.358-3.74 [facility] Vitamin D 25-Hydroxy 27.0 ng/mL [facility] Comment on above: Vitamin D 25(OH) Sta tus Range Deficiency <20 ng/mL (50nmol/L) Insufficiency 20 - 30 ng/mL (50 - 75 nmol/L) Sufficiency 30 - 100 ng/mL (75 - 250 nmol/L) Toxicity >100 ng/mL (>250 nmol/L) Platelets bldOrdered By: Candelario Santana on 06-15-2023 Platelets (Bld) [#/Vol] 223 10*3/uL 150-450 [facility] Serum or plasma albumin sabino urement (mass/volume)Ordered By: Candelario Santana on 06-15-2023 Albumin [Mass/Vol] 3.1 g/dL 3.2-5.0 [facility] Serum or plasma albumin/glob ulin mass ratioOrdered By: Candelario Santana on 06-15-2023 Albumin/Globulin [Mass ratio] 0.7 {ratio} 0.9-2.4 [facility] Serum or plasma calcium sabino urement (mass/volume)Ordered By: Candelario Santana on 06-15-2023 Calcium [Mass/Vol] 8.3 mg/dL 8.5-10.1 [facility] Serum or plasma cholesterol in HDL measurement (mass/volume)Ordered By: Candelario Santana on 06-15-2023 Cholesterol in HDL [Mass/Vol] 54 mg/dL >40 [facility] Comment on above: The drugs N-Acetylcy steine and Metamizole may falsely depress this assay. Reference Range HDL <40 mg/dL Low HDL Cholesterol HDL >or= 60 mg/dL High HDL Cholesterol Serum or plasma cholesterol in VLDL measurement (mass/volume)Ordered By: Candelario Santana on 06-15-2023 Cholesterol in VLDL [Mass/Vol] 19 mg/dL 5-40 [facility] Serum or plasma creatinine m easurement (mass/volume)Ordered By: Candelario Santana on 06-15-2023 Creatinine [Mass/Vol] 0.80 mg/dL 0.55-1.02 [facility] Comment on above: The validity of the calculated GFR & GFRAA in patients over 70 years has not been determined. Clinical correlation is essential. Serum or plasma low density lipoprotein (LDL) cholesterol measurement (mass/volume)Ordered By: Candelario Santana on 06-15-2023 Cholesterol in LDL [Mass/Vol] 125 mg/dL 0-130 [facility] Serum or plasma urea nitroge n measurement (mass/volume)Ordered By: Candleario Santana 06-15-2023 Urea nitrogen [Mass/Vol] 11 mg/dL 7-18 [facility] Thin prep Papanicolaou smear with manual screeningOrdered By: Candelario Santana 06-15-2023 Thin prep Papanicolaou smear with manual screening 21 U/L 15-37 [facility] Thin prep Papanicolaou smear with manual screening 12 5-15 [facility] Absolute lymphocyte countOrd ered By: Candelario Santana on 03-17-2023 Lymphocytes Auto (Unsp spec) [#/Vol] 2.32 10*3/uL 0.83-4.51 [facility] Basophil percentageOrdered B y: Candelario Santana on 03-17-2023 Basophils/100 WBC (Bld) 0.7 % 0-1 [facility] Bilirubin [Mass/Vol] 1.50 mg/dL 0.20-1.00 [facility] Comment on above: For patients on eltr ombopag therapy, use of Dimension [place] TBIL is not recommended. Chloride [Moles/Vol] 104 mmol/L 98-107 [facility] Cholesterol [Mass/Vol] 163 mg/dL <200 [facility] Comment on above: <200 mg/dL Desirable 200-240 mg/dL Borderline >240 mg/dL High Risk Eosinophils/100 WBC (Bld) 2.2 % 0-5 [facility] Glucose [Mass/Vol] 289 mg/dL 74-106 [facility] Comment on above: Glucose result great er than or equal to 200 mg/dLsuggests DIABETES MELLITUS per A.D.A. criteria. Neutrophils (Bld) [#/Vol] 2.9 10*3/uL 2.0-7.7 [facility] Neutrophils/100 WBC (Bld) 48.9 % 47-70 [facility] Potassium [Moles/Vol] 4.2 mmol/L 3.5-5.1 [facility] Protein [Mass/Vol] 7.4 g/dL 6.4-8.2 [facility] Sodium [Moles/Vol] 134 mmol/L 136-145 [facility] Triglyceride [Mass/Vol] 102 mg/dL <199 [facility] Comment on above: The drugs N-Acetylcy steine and Metamizole may falsely depress this assay.Serum Triglycerides Reference Interval Normal <150 mg/dL Borderline high 150 - 199 mg/dL High 200 - 499 mg/dL Very High > or = 500 mg/dL WBC (Bld) [#/Vol] 6.0 10*3/uL 4.4-11.0 [facility] Blood erythrocytes count (nu mber/volume)Ordered By: Candelario Santana on 03-17-2023 RBC (Bld) [#/Vol] 3.78 10*6/uL 4.2-5.4 [facility] Blood hemoglobin measurement (mass/volume)Ordered By: Candelario Santana on 03-17-2023 Hemoglobin (Bld) [Mass/Vol] 11.5 g/dL 12.0-15.0 [facility] Blood lymphocytes/100 leukoc ytesOrdered By: Candelario Santana on 03-17-2023 Lymphocytes/100 WBC (Bld) 38.7 % 19-41 [facility] Blood monocytes/100 leukocyt esOrdered By: Candelario Santana on 03-17-2023 Monocytes/100 WBC (Bld) 9.0 % 0-10 [facility] Blood platelet mean volumeOr dered By: Candelario Santana on 03-17-2023 Platelet mean volume (Bld) [Entitic vol] 10.3 fL 6.2-12.0 [facility] Determination of erythrocyte mean corpuscular volume (MCV)Ordered By: Candelario Santana on 03-17-2023 MCV (RBC) [Entitic vol] 93.1 fL 81-99 [facility] Hematocrit Auto (Bld) [Volum e fraction]Ordered By: Candelario Santana on 03-17-2023 Hematocrit (Bld) [Volume fraction] 35.2 % 37-47 [facility] Laboratory - Chemistry and C hemistry - challengeOrdered By: Candelario Santana on 03-17-2023 ALP [Catalytic activity/Vol] 162 U/L 45-117 [facility] ALT [Catalytic activity/Vol] 48 U/L 13-56 [facility] CO2 [Moles/Vol] 22.0 mmol/L 21.0-32.0 [facility] Globulin (S) [Mass/Vol] 4.4 g/dL 2.2-4.2 [facility] Urea nitrogen/Creatinine [Mass ratio] 10.3 mg/mg 10-20 [facility] Laboratory - Hematology and Cell countsOrdered By: Candelario Santana 03-17-2023 Erythrocyte distribution width (RBC) [Entitic vol] 46.0 fL 35.1-43.9 [facility] Erythrocyte distribution width (RBC) [Ratio] 13.5 % 11.6-14.6 [facility] Immature granulocytes/100 WBC (Bld) 0.500 % 0.0-0.9 [facility] Comment on above: IG% - Immature Granu locytes (promyelocytes, myelocytes and metamyelocytes) > 1% indicates that a LEFT SHIFT is Present. MCH (RBC) [Entitic mass] 30.4 pg 27.0-32.0 [facility] Nucleated RBC/100 WBC (Bld) [Ratio] 0 % 0-5 [facility] MCHC Auto (RBC) [Mass/Vol]Or dered By: Candelario Santana on 03-17-2023 MCHC (RBC) [Mass/Vol] 32.7 g/dL 32-36 [facility] No Panel InformationOrdered By: Candelario Santana on 03-17-2023 Estimated GFR (MDRD) Amer 93 mL/min >60 [facility] Comment on above: GFR Calc Estimated GFR (MDRD) Non-Af Amer 77 mL/min >60 [facility] Comment on above: Non- GFR Calc Thyroid Stimulating Hormone (TSH) 3.35 uIU/mL 0.358-3.74 [facility] Vitamin D 25-Hydroxy 21.8 ng/mL [facility] Comment on above: Vitamin D 25(OH) Sta tus Range Deficiency <20 ng/mL (50nmol/L) Insufficiency 20 - 30 ng/mL (50 - 75 nmol/L) Sufficiency 30 - 100 ng/mL (75 - 250 nmol/L) Toxicity >100 ng/mL (>250 nmol/L) Platelets bldOrdered By: Candelario Santana on 03-17-2023 Platelets (Bld) [#/Vol] 252 10*3/uL 150-450 [facility] Serum or plasma albumin sabino urement (mass/volume)Ordered By: Candelario Santana on 03-17-2023 Albumin [Mass/Vol] 3.0 g/dL 3.2-5.0 [facility] Serum or plasma albumin/glob ulin mass ratioOrdered By: Candelario Santana 03-17-2023 Albumin/Globulin [Mass ratio] 0.7 {ratio} 0.9-2.4 [facility] Serum or plasma calcium sabino urement (mass/volume)Ordered By: Candelario Santana 03-17-2023 Calcium [Mass/Vol] 8.8 mg/dL 8.5-10.1 [facility] Serum or plasma cholesterol in HDL measurement (mass/volume)Ordered By: Candelario Santana on 03-17-2023 Cholesterol in HDL [Mass/Vol] 36 mg/dL >40 [facility] Comment on above: The drugs N-Acetylcy steine and Metamizole may falsely depress this assay. Reference Range HDL <40 mg/dL Low HDL Cholesterol HDL >or= 60 mg/dL High HDL Cholesterol Serum or plasma cholesterol in VLDL measurement (mass/volume)Ordered By: Cadnelario Santana on 03-17-2023 Cholesterol in VLDL [Mass/Vol] 20 mg/dL 5-40 [facility] Serum or plasma creatinine m easurement (mass/volume)Ordered By: Candelario Santana on 03-17-2023 Creatinine [Mass/Vol] 0.77 mg/dL 0.55-1.02 [facility] Comment on above: The validity of the calculated GFR & GFRAA in patients over 70 years has not been determined. Clinical correlation is essential. Serum or plasma low density lipoprotein (LDL) cholesterol measurement (mass/volume)Ordered By: Candelario Santana on 03-17-2023 Cholesterol in LDL [Mass/Vol] 107 mg/dL 0-130 [facility] Serum or plasma urea nitroge n measurement (mass/volume)Ordered By: Candelario Santana on 03-17-2023 Urea nitrogen [Mass/Vol] 8 mg/dL 7-18 [facility] Thin prep Papanicolaou smear with manual screeningOrdered By: Candelario Santana on 03-17-2023 Thin prep Papanicolaou smear with manual screening 41 U/L 15-37 [facility] Thin prep Papanicolaou smear with manual screening 8 5-15 [facility] Absolute lymphocyte countOrd ered By: Dr. Santana on 12-21-2022 Lymphocytes Auto (Unsp spec) [#/Vol] 2.70 10*3/uL 0.83-4.51 [facility] Basophil percentageOrdered B y: Dr. Santana on 12-21-2022 Basophils/100 WBC (Bld) 0.7 % 0-1 [facility] Eosinophils/100 WBC (Bld) 3.6 % 0-5 [facility] Neutrophils (Bld) [#/Vol] 3.4 10*3/uL 2.0-7.7 [facility] Neutrophils/100 WBC (Bld) 46.8 % 47-70 [facility] WBC (Bld) [#/Vol] 7.3 10*3/uL 4.4-11.0 [facility] Blood erythrocytes count (nu mber/volume)Ordered By: Dr. Santana on 12-21-2022 RBC (Bld) [#/Vol] 3.57 10*6/uL 4.2-5.4 [facility] Blood hemoglobin measurement (mass/volume)Ordered By: Dr. Santana on 12-21-2022 Hemoglobin (Bld) [Mass/Vol] 11.0 g/dL 12.0-15.0 [facility] Blood lymphocytes/100 leukoc ytesOrdered By: Dr. Santana on 12-21-2022 Lymphocytes/100 WBC (Bld) 36.9 % 19-41 [facility] Blood monocytes/100 leukocyt esOrdered By: Dr. Santana on 12-21-2022 Monocytes/100 WBC (Bld) 11.7 % 0-10 [facility] Blood platelet mean volumeOr dered By: Dr. Santana on 12-21-2022 Platelet mean volume (Bld) [Entitic vol] 9.7 fL 6.2-12.0 [facility] Determination of erythrocyte mean corpuscular volume (MCV)Ordered By: Dr. Santana on 12-21-2022 MCV (RBC) [Entitic vol] 92.4 fL 81-99 [facility] Hematocrit Auto (Bld) [Volum e fraction]Ordered By: Dr. Santana on 12-21-2022 Hematocrit (Bld) [Volume fraction] 33.0 % 37-47 [facility] Hemoglobin in reticulocytes (mass per reticulocyte)Ordered By: Dr. Santana on 12-21-2022 Hemoglobin (Reticulocytes) [Entitic mass] 34.2 pg 30-35 [facility] Iron measurement (mass/mass) Ordered By: Dr. Santana on 12-21-2022 Iron (Unsp spec) [Mass/Mass] 61 ug/dL 50-170 [facility] Laboratory - Chemistry and C hemistry - challengeOrdered By: Dr. Santana on 12-21-2022 Cobalamin (Vitamin B12) [Mass/Vol] 312 pg/mL 211-911 [facility] Laboratory - Hematology and Cell countsOrdered By: Dr. Santana on 12-21-2022 Erythrocyte distribution width (RBC) [Entitic vol] 46.0 fL 35.1-43.9 [facility] Erythrocyte distribution width (RBC) [Ratio] 13.5 % 11.6-14.6 [facility] Immature granulocytes/100 WBC (Bld) 0.300 % 0.0-0.9 [facility] Comment on above: IG% - Immature Granu locytes (promyelocytes, myelocytes and metamyelocytes) > 1% indicates that a LEFT SHIFT is Present. MCH (RBC) [Entitic mass] 30.8 pg 27.0-32.0 [facility] Nucleated RBC/100 WBC (Bld) [Ratio] 0 % 0-5 [facility] MCHC Auto (RBC) [Mass/Vol]Or dered By: Dr. Santana on 12-21-2022 MCHC (RBC) [Mass/Vol] 33.3 g/dL 32-36 [facility] No Panel InformationOrdered By: Dr. Santana on 12-21-2022 Immature Reticulocyte Fraction 6.10 % 3.00-15.90 [facility] Reticulocyte Count 1.63 % 0.5-1.5 [facility] Total Iron Binding Capacity 295 ug/dL 250-450 [facility] Platelets bldOrdered By: Dr. Santana on 12-21-2022 Platelets (Bld) [#/Vol] 234 10*3/uL 150-450 [facility] Serum or plasma ferritin uzma surement (mass/volume)Ordered By: Dr. Santana on 12-21-2022 Ferritin [Mass/Vol] 32 ng/mL 8-252 [facility] Serum or plasma folate measu rement (mass/volume)Ordered By: Dr. Santana on 12-21-2022 Folate [Mass/Vol] 18.50 ng/mL 3.1-55.4 [facility] Serum or plasma iron saturat ion measurement (mass fraction)Ordered By: Dr. Santana on 12-21-2022 Iron saturation [Mass fraction] 20.7 % 15.0-55.0 [facility] Absolute lymphocyte countOrd ered By: Dr. Santana on 12-16-2022 Lymphocytes Auto (Unsp spec) [#/Vol] 2.52 10*3/uL 0.83-4.51 [facility] Basophil percentageOrdered B y: Dr. Santana on 12-16-2022 Basophils/100 WBC (Bld) 0.6 % 0-1 [facility] Bilirubin [Mass/Vol] 0.90 mg/dL 0.20-1.00 [facility] Comment on above: For patients on eltr ombopag therapy, use of Dimension [place] TBIL is not recommended. Chloride [Moles/Vol] 107 mmol/L 98-107 [facility] Cholesterol [Mass/Vol] 191 mg/dL <200 [facility] Comment on above: <200 mg/dL Desirable 200-240 mg/dL Borderline >240 mg/dL High Risk Eosinophils/100 WBC (Bld) 4.2 % 0-5 [facility] Glucose [Mass/Vol] 202 mg/dL 74-106 [facility] Comment on above: Glucose result great er than or equal to 200 mg/dLsuggests DIABETES MELLITUS per A.D.A. criteria. Neutrophils (Bld) [#/Vol] 2.7 10*3/uL 2.0-7.7 [facility] Neutrophils/100 WBC (Bld) 43.9 % 47-70 [facility] Potassium [Moles/Vol] 3.9 mmol/L 3.5-5.1 [facility] Protein [Mass/Vol] 7.6 g/dL 6.4-8.2 [facility] Sodium [Moles/Vol] 134 mmol/L 136-145 [facility] Triglyceride [Mass/Vol] 96 mg/dL <199 [facility] Comment on above: The drugs N-Acetylcy steine and Metamizole may falsely depress this assay.Serum Triglycerides Reference Interval Normal <150 mg/dL Borderline high 150 - 199 mg/dL High 200 - 499 mg/dL Very High > or = 500 mg/dL WBC (Bld) [#/Vol] 6.2 10*3/uL 4.4-11.0 [facility] Blood erythrocytes count (nu mber/volume)Ordered By: Dr. Santana on 12-16-2022 RBC (Bld) [#/Vol] 3.36 10*6/uL 4.2-5.4 [facility] Blood hemoglobin measurement (mass/volume)Ordered By: Dr. Santana on 12-16-2022 Hemoglobin (Bld) [Mass/Vol] 10.4 g/dL 12.0-15.0 [facility] Blood lymphocytes/100 leukoc ytesOrdered By: Dr. Santana on 12-16-2022 Lymphocytes/100 WBC (Bld) 40.4 % 19-41 [facility] Blood monocytes/100 leukocyt esOrdered By: Dr. Santana on 12-16-2022 Monocytes/100 WBC (Bld) 10.7 % 0-10 [facility] Blood platelet mean volumeOr dered By: Dr. Santana on 12-16-2022 Platelet mean volume (Bld) [Entitic vol] 9.8 fL 6.2-12.0 [facility] Determination of erythrocyte mean corpuscular volume (MCV)Ordered By: Dr. Santana on 12-16-2022 MCV (RBC) [Entitic vol] 90.2 fL 81-99 [facility] Hematocrit Auto (Bld) [Volum e fraction]Ordered By: Dr. Santana on 12-16-2022 Hematocrit (Bld) [Volume fraction] 30.3 % 37-47 [facility] Laboratory - Chemistry and C hemistry - challengeOrdered By: Dr. Santana on 12-16-2022 ALP [Catalytic activity/Vol] 66 U/L 45-117 [facility] ALT [Catalytic activity/Vol] 17 U/L 13-56 [facility] CO2 [Moles/Vol] 22.0 mmol/L 21.0-32.0 [facility] Globulin (S) [Mass/Vol] 4.4 g/dL 2.2-4.2 [facility] Urea nitrogen/Creatinine [Mass ratio] 12.8 mg/mg 10-20 [facility] Laboratory - Hematology and Cell countsOrdered By: Dr. Santana on 12-16-2022 Erythrocyte distribution width (RBC) [Entitic vol] 44.2 fL 35.1-43.9 [facility] Erythrocyte distribution width (RBC) [Ratio] 13.6 % 11.6-14.6 [facility] Immature granulocytes/100 WBC (Bld) 0.200 % 0.0-0.9 [facility] Comment on above: IG% - Immature Granu locytes (promyelocytes, myelocytes and metamyelocytes) > 1% indicates that a LEFT SHIFT is Present. MCH (RBC) [Entitic mass] 31.0 pg 27.0-32.0 [facility] Nucleated RBC/100 [facility] (Bld) [[facility]] 0 % [facility] [Mass/Vol]Or dered By: Dr. Santana on 12-16-2022 MCHC (RBC) [Mass/Vol] 34.3 g/dL 32-36 [facility] No Panel InformationOrdered By: Dr. Santana on 12-16-2022 Estimated GFR (MDRD) Amer 92 mL/min >60 [facility] Comment on above: GFR Calc Estimated GFR (MDRD) Non-Af Amer 76 mL/min >60 [facility] Comment on above: Non- GFR Calc Thyroid Stimulating Hormone (TSH) 0.64 uIU/mL 0.358-3.74 [facility] Vitamin D 25-Hydroxy 37.9 ng/mL [facility] Comment on above: Vitamin D 25(OH) Sta tus Range Deficiency <20 ng/mL (50nmol/L) Insufficiency 20 - 30 ng/mL (50 - 75 nmol/L) Sufficiency 30 - 100 ng/mL (75 - 250 nmol/L) Toxicity >100 ng/mL (>250 nmol/L) Platelets bldOrdered By: Dr. Santana on 12-16-2022 Platelets (Bld) [#/Vol] 212 10*3/uL 150-450 [facility] Serum or plasma albumin sabino urement (mass/volume)Ordered By: Dr. Santana on 12-16-2022 Albumin [Mass/Vol] 3.2 g/dL 3.2-5.0 [facility] Serum or plasma albumin/glob ulin mass ratioOrdered By: Dr. Santana on 12-16-2022 Albumin/Globulin [Mass ratio] 0.7 {ratio} 0.9-2.4 [facility] Serum or plasma calcium sabino urement (mass/volume)Ordered By: Dr. Santana on 12-16-2022 Calcium [Mass/Vol] 8.7 mg/dL 8.5-10.1 [facility] Serum or plasma cholesterol in HDL measurement (mass/volume)Ordered By: Dr. Santana on 12-16-2022 Cholesterol in HDL [Mass/Vol] 50 mg/dL >40 [facility] Comment on above: The drugs N-Acetylcy steine and Metamizole may falsely depress this assay. Reference Range HDL <40 mg/dL Low HDL Cholesterol HDL >or= 60 mg/dL High HDL Cholesterol Serum or plasma cholesterol in VLDL measurement (mass/volume)Ordered By: Dr. Santana on 12-16-2022 Cholesterol in VLDL [Mass/Vol] 19 mg/dL 5-40 [facility] Serum or plasma creatinine m easurement (mass/volume)Ordered By: Dr. Santana on 12-16-2022 Creatinine [Mass/Vol] 0.78 mg/dL 0.55-1.02 [facility] Comment on above: The validity of the calculated GFR & GFRAA in patients over 70 years has not been determined. Clinical correlation is essential. Serum or plasma low density lipoprotein (LDL) cholesterol measurement (mass/volume)Ordered By: Dr. Santana on 12-16-2022 Cholesterol in LDL [Mass/Vol] 122 mg/dL 0-130 [facility] Serum or plasma urea nitroge n measurement (mass/volume)Ordered By: Dr. Santana on 12-16-2022 Urea nitrogen [Mass/Vol] 10 mg/dL 7-18 [facility] Thin prep Papanicolaou smear with manual screeningOrdered By: Dr. Santana on 12-16-2022 Thin prep Papanicolaou smear with manual screening 25 U/L 15-37 [facility] Thin prep Papanicolaou smear with manual screening 5 5-15 [facility] Glucose Glucometer (BldC) [M ass/Vol]Ordered By: Antony Tran on 11-24-2022 Glucose [Mass/Vol] 182 mg/dL 74-106 [facility] Comment on above: MANAGEMENT OF PATIEN T CARE PER NURSING PROTOCOL Absolute lymphocyte countOrd ered By: Candelario Santana on 09-16-2022 Lymphocytes Auto (Unsp spec) [#/Vol] 2.69 10*3/uL 0.83-4.51 [facility] Basophil percentageOrdered B y: Candelario Santana on 09-16-2022 Basophils/100 WBC (Bld) 0.5 % 0-1 [facility] Bilirubin [Mass/Vol] 1.10 mg/dL 0.20-1.00 [facility] Comment on above: For patients on eltr ombopag therapy, use of Dimension [place] TBIL is not recommended. Chloride [Moles/Vol] 100 mmol/L 98-107 [facility] Cholesterol [Mass/Vol] 179 mg/dL <200 [facility] Comment on above: <200 mg/dL Desirable 200-240 mg/dL Borderline >240 mg/dL High Risk Eosinophils/100 WBC (Bld) 2.7 % 0-5 [facility] Glucose [Mass/Vol] 374 mg/dL 74-106 [facility] Comment on above: Glucose result great er than or equal to 200 mg/dLsuggests DIABETES MELLITUS per A.D.A. criteria. Neutrophils (Bld) [#/Vol] 3.8 10*3/uL 2.0-7.7 [facility] Neutrophils/100 WBC (Bld) 50.5 % 47-70 [facility] Potassium [Moles/Vol] 3.5 mmol/L 3.5-5.1 [facility] Protein [Mass/Vol] 7.4 g/dL 6.4-8.2 [facility] Sodium [Moles/Vol] 135 mmol/L 136-145 [facility] Triglyceride [Mass/Vol] 89 mg/dL <199 [facility] Comment on above: The drugs N-Acetylcy steine and Metamizole may falsely depress this assay.Serum Triglycerides Reference Interval Normal <150 mg/dL Borderline high 150 - 199 mg/dL High 200 - 499 mg/dL Very High > or = 500 mg/dL WBC (Bld) [#/Vol] 7.5 10*3/uL 4.4-11.0 [facility] Blood erythrocytes count (nu mber/volume)Ordered By: Candelario Santana on 09-16-2022 RBC (Bld) [#/Vol] 3.82 10*6/uL 4.2-5.4 [facility] Blood hemoglobin measurement (mass/volume)Ordered By: Candelario Santana on 09-16-2022 Hemoglobin (Bld) [Mass/Vol] 11.5 g/dL 12.0-15.0 [facility] Blood lymphocytes/100 leukoc ytesOrdered By: Candelario Santana on 09-16-2022 Lymphocytes/100 WBC (Bld) 36.1 % 19-41 [facility] Blood monocytes/100 leukocyt esOrdered By: Candelario Santana on 09-16-2022 Monocytes/100 WBC (Bld) 9.8 % 0-10 [facility] Blood platelet mean volumeOr dered By: Candelario Santana on 09-16-2022 Platelet mean volume (Bld) [Entitic vol] 10.4 fL 6.2-12.0 [facility] Determination of erythrocyte mean corpuscular volume (MCV)Ordered By: Candelario Santana on 09-16-2022 MCV (RBC) [Entitic vol] 86.4 fL 81-99 [facility] Hematocrit Auto (Bld) [Volum e fraction]Ordered By: Candelario Santana on 09-16-2022 Hematocrit (Bld) [Volume fraction] 33.0 % 37-47 [facility] Laboratory - Chemistry and C hemistry - challengeOrdered By: Candelario Santana on 09-16-2022 ALP [Catalytic activity/Vol] 81 U/L 45-117 [facility] ALT [Catalytic activity/Vol] 19 U/L 13-56 [facility] CO2 [Moles/Vol] 23.0 mmol/L 21.0-32.0 [facility] Globulin (S) [Mass/Vol] 4.4 g/dL 2.2-4.2 [facility] Urea nitrogen/Creatinine [Mass ratio] 16.9 mg/mg 10-20 [facility] Laboratory - Hematology and Cell countsOrdered By: Candelario Santana on 09-16-2022 Erythrocyte distribution width (RBC) [Entitic vol] 40.5 fL 35.1-43.9 [facility] Erythrocyte distribution width (RBC) [Ratio] 13.2 % 11.6-14.6 [facility] Immature granulocytes/100 WBC (Bld) 0.400 % 0.0-0.9 [facility] Comment on above: IG% - Immature Granu locytes (promyelocytes, myelocytes and metamyelocytes) > 1% indicates that a LEFT SHIFT is Present. MCH (RBC) [Entitic mass] 30.1 pg 27.0-32.0 [facility] Nucleated RBC/100 WBC (Bld) [Ratio] 0 % 0-5 [facility] MCHC Auto (RBC) [Mass/Vol]Or dered By: Candelario Santana on 09-16-2022 MCHC (RBC) [Mass/Vol] 34.8 g/dL 32-36 [facility] No Panel InformationOrdered By: Candelario Santana on 09-16-2022 Estimated GFR (MDRD) Amer 87 mL/min >60 [facility] Comment on above: GFR Calc Estimated GFR (MDRD) Non-Af Amer 72 mL/min >60 [facility] Comment on above: Non- GFR Calc Thyroid Stimulating Hormone (TSH) 4.20 uIU/mL 0.358-3.74 [facility] Vitamin D 25-Hydroxy 26.7 ng/mL [facility] Comment on above: Vitamin D 25(OH) Sta tus Range Deficiency <20 ng/mL (50nmol/L) Insufficiency 20 - 30 ng/mL (50 - 75 nmol/L) Sufficiency 30 - 100 ng/mL (75 - 250 nmol/L) Toxicity >100 ng/mL (>250 nmol/L) Platelets bldOrdered By: Candelario Santana on 09-16-2022 Platelets (Bld) [#/Vol] 213 10*3/uL 150-450 [facility] Serum or plasma albumin sabino urement (mass/volume)Ordered By: Candelario Santana on 09-16-2022 Albumin [Mass/Vol] 3.0 g/dL 3.2-5.0 [facility] Serum or plasma albumin/glob ulin mass ratioOrdered By: Candelario Santana on 09-16-2022 Albumin/Globulin [Mass ratio] 0.7 {ratio} 0.9-2.4 [facility] Serum or plasma calcium sabino urement (mass/volume)Ordered By: Candelario Santana on 09-16-2022 Calcium [Mass/Vol] 9.2 mg/dL 8.5-10.1 [facility] Serum or plasma cholesterol in HDL measurement (mass/volume)Ordered By: Candelario Santana on 09-16-2022 Cholesterol in HDL [Mass/Vol] 58 mg/dL >40 [facility] Comment on above: The drugs N-Acetylcy steine and Metamizole may falsely depress this assay. Reference Range HDL <40 mg/dL Low HDL Cholesterol HDL >or= 60 mg/dL High HDL Cholesterol Serum or plasma cholesterol in VLDL measurement (mass/volume)Ordered By: Candelario Santana on 09-16-2022 Cholesterol in VLDL [Mass/Vol] 18 mg/dL 5-40 [facility] Serum or plasma creatinine m easurement (mass/volume)Ordered By: Candelario Santana on 09-16-2022 Creatinine [Mass/Vol] 0.83 mg/dL 0.55-1.02 [facility] Comment on above: The validity of the calculated GFR & GFRAA in patients over 70 years has not been determined. Clinical correlation is essential. Serum or plasma low density lipoprotein (LDL) cholesterol measurement (mass/volume)Ordered By: Candelario Santana on 09-16-2022 Cholesterol in LDL [Mass/Vol] 103 mg/dL 0-130 [facility] Serum or plasma urea nitroge n measurement (mass/volume)Ordered By: Candelario Santana on 09-16-2022 Urea nitrogen [Mass/Vol] 14 mg/dL 7-18 [facility] Thin prep Papanicolaou smear with manual screeningOrdered By: Candelario Santana on 09-16-2022 Thin prep Papanicolaou smear with manual screening 21 U/L 15-37 [facility] Thin prep Papanicolaou smear with manual screening 12 5-15 [facility] Absolute lymphocyte countOrd ered By: Dr. Santana on 07-08-2022 Lymphocytes Auto (Unsp spec) [#/Vol] 1.66 10*3/uL 0.83-4.51 [facility] Basophil percentageOrdered B y: Dr. Santana on 07-08-2022 Basophils/100 WBC (Bld) 0.8 % 0-1 [facility] Bilirubin [Mass/Vol] 1.20 mg/dL 0.20-1.00 [facility] Comment on above: For patients on eltr ombopag therapy, use of Dimension [place] TBIL is not recommended. Chloride [Moles/Vol] 104 mmol/L 98-107 [facility] Cholesterol [Mass/Vol] 176 mg/dL <200 [facility] Comment on above: <200 mg/dL Desirable 200-240 mg/dL Borderline >240 mg/dL High Risk Eosinophils/100 WBC (Bld) 9.7 % 0-5 [facility] Glucose [Mass/Vol] 278 mg/dL 74-106 [facility] Comment on above: Glucose result great er than or equal to 200 mg/dLsuggests DIABETES MELLITUS per A.D.A. criteria. Neutrophils (Bld) [#/Vol] 2.5 10*3/uL 2.0-7.7 [facility] Neutrophils/100 WBC (Bld) 48.1 % 47-70 [facility] Potassium [Moles/Vol] 3.4 mmol/L 3.5-5.1 [facility] Protein [Mass/Vol] 7.4 g/dL 6.4-8.2 [facility] Sodium [Moles/Vol] 138 mmol/L 136-145 [facility] Triglyceride [Mass/Vol] 85 mg/dL <199 [facility] Comment on above: The drugs N-Acetylcy steine and Metamizole may falsely depress this assay.Serum Triglycerides Reference Interval Normal <150 mg/dL Borderline high 150 - 199 mg/dL High 200 - 499 mg/dL Very High > or = 500 mg/dL WBC (Bld) [#/Vol] 5.1 10*3/uL 4.4-11.0 [facility] Blood erythrocytes count (nu mber/volume)Ordered By: Dr. Santana on 07-08-2022 RBC (Bld) [#/Vol] 3.75 10*6/uL 4.2-5.4 [facility] Blood hemoglobin measurement (mass/volume)Ordered By: Dr. Santana on 07-08-2022 Hemoglobin (Bld) [Mass/Vol] 11.6 g/dL 12.0-15.0 [facility] Blood lymphocytes/100 leukoc ytesOrdered By: Dr. Santana on 07-08-2022 Lymphocytes/100 WBC (Bld) 32.4 % 19-41 [facility] Blood monocytes/100 leukocyt esOrdered By: Dr. Santana on 07-08-2022 Monocytes/100 WBC (Bld) 8.8 % 0-10 [facility] Blood platelet mean volumeOr dered By: Dr. Santana on 07-08-2022 Platelet mean volume (Bld) [Entitic vol] 10.3 fL 6.2-12.0 [facility] Determination of erythrocyte mean corpuscular volume (MCV)Ordered By: Dr. Santana on 07-08-2022 MCV (RBC) [Entitic vol] 90.1 fL 81-99 [facility] Hematocrit Auto (Bld) [Volum e fraction]Ordered By: Dr. Santana on 07-08-2022 Hematocrit (Bld) [Volume fraction] 33.8 % 37-47 [facility] Laboratory - Chemistry and C hemistry - challengeOrdered By: Dr. Santana on 07-08-2022 ALP [Catalytic activity/Vol] 99 U/L 45-117 [facility] ALT [Catalytic activity/Vol] 16 U/L 13-56 [facility] CO2 [Moles/Vol] 25.0 mmol/L 21.0-32.0 [facility] Globulin (S) [Mass/Vol] 4.3 g/dL 2.2-4.2 [facility] Urea nitrogen/Creatinine [Mass ratio] 11.6 mg/mg 10-20 [facility] Laboratory - Hematology and Cell countsOrdered By: Dr. Santana on 07-08-2022 Erythrocyte distribution width (RBC) [Entitic vol] 46.6 fL 35.1-43.9 [facility] Erythrocyte distribution width (RBC) [Ratio] 14.4 % 11.6-14.6 [facility] Immature granulocytes/100 WBC (Bld) 0.200 % 0.0-0.9 [facility] Comment on above: IG% - Immature Granu locytes (promyelocytes, myelocytes and metamyelocytes) > 1% indicates that a LEFT SHIFT is Present. MCH (RBC) [Entitic mass] 30.9 pg 27.0-32.0 [facility] Nucleated RBC/100 WBC (Bld) [Ratio] 0 % 0-5 [facility] MCHC Auto (RBC) [Mass/Vol]Or dered By: Dr. Santana on 07-08-2022 MCHC (RBC) [Mass/Vol] 34.3 g/dL 32-36 [facility] No Panel InformationOrdered By: Dr. Santana on 07-08-2022 Estimated GFR (MDRD) Amer 125 mL/min >60 [facility] Comment on above: GFR Calc Estimated GFR (MDRD) Non-Af Amer 103 mL/min >60 [facility] Comment on above: Non- GFR Calc Thyroid Stimulating Hormone (TSH) 5.16 uIU/mL 0.358-3.74 [facility] Vitamin D 25-Hydroxy 26.2 ng/mL [facility] Comment on above: Vitamin D 25(OH) Sta tus Range Deficiency <20 ng/mL (50nmol/L) Insufficiency 20 - 30 ng/mL (50 - 75 nmol/L) Sufficiency 30 - 100 ng/mL (75 - 250 nmol/L) Toxicity >100 ng/mL (>250 nmol/L) Platelets bldOrdered By: Dr. Santana on 07-08-2022 Platelets (Bld) [#/Vol] 171 10*3/uL 150-450 [facility] Serum or plasma albumin sabino urement (mass/volume)Ordered By: Dr. Santana on 07-08-2022 Albumin [Mass/Vol] 3.1 g/dL 3.2-5.0 [facility] Serum or plasma albumin/glob ulin mass ratioOrdered By: Dr. Santana on 07-08-2022 Albumin/Globulin [Mass ratio] 0.7 {ratio} 0.9-2.4 [facility] Serum or plasma calcium sabino urement (mass/volume)Ordered By: Dr. Santana on 07-08-2022 Calcium [Mass/Vol] 8.7 mg/dL 8.5-10.1 [facility] Serum or plasma cholesterol in HDL measurement (mass/volume)Ordered By: Dr. Santana on 07-08-2022 Cholesterol in HDL [Mass/Vol] 50 mg/dL >40 [facility] Comment on above: The drugs N-Acetylcy steine and Metamizole may falsely depress this assay. Reference Range HDL <40 mg/dL Low HDL Cholesterol HDL >or= 60 mg/dL High HDL Cholesterol Serum or plasma cholesterol in VLDL measurement (mass/volume)Ordered By: Dr. Santana on 07-08-2022 Cholesterol in VLDL [Mass/Vol] 17 mg/dL 5-40 [facility] Serum or plasma creatinine m easurement (mass/volume)Ordered By: Dr. Santana on 07-08-2022 Creatinine [Mass/Vol] 0.60 mg/dL 0.55-1.02 [facility] Comment on above: The validity of the calculated GFR & GFRAA in patients over 70 years has not been determined. Clinical correlation is essential. Serum or plasma low density lipoprotein (LDL) cholesterol measurement (mass/volume)Ordered By: Dr. Santana on 07-08-2022 Cholesterol in LDL [Mass/Vol] 109 mg/dL 0-130 [facility] Serum or plasma urea nitroge n measurement (mass/volume)Ordered By: Dr. Santana on 07-08-2022 Urea nitrogen [Mass/Vol] 7 mg/dL 7-18 [facility] Thin prep Papanicolaou smear with manual screeningOrdered By: Dr. Santana on 07-08-2022 Thin prep Papanicolaou smear with manual screening 20 U/L 15-37 [facility] Thin prep Papanicolaou smear with manual screening 9 5-15 [facility] No Panel Informationon 05-25 Thyroid Stimulating Hormone (TSH) 2.85 uIU/mL 0.358-3.74 [facility] Work Phone: Absolute lymphocyte counton 04-09-2022 Lymphocytes Auto (Unsp spec) [#/Vol] 2.49 10*3/uL 0.83-4.51 [facility] Work Phone: Basophil percentageon 2021 Basophils/100 WBC (Bld) 0.3 % 0-1 [facility] Work Phone: Bilirubin [Mass/Vol] 0.90 mg/dL 0.20-1.00 [facility] Work Phone: Comment on above: For patients on eltr ombopag therapy, use of Dimension [place] TBIL is not recommended. Chloride [Moles/Vol] 103 mmol/L 98-107 [facility] Work Phone: Cholesterol [Mass/Vol] 154 mg/dL <200 [facility] Work Phone: Comment on above: <200 mg/dL Desirable 200-240 mg/dL Borderline >240 mg/dL High Risk Eosinophils/100 WBC (Bld) 5.2 % 0-5 [facility] Work Phone: Glucose [Mass/Vol] 337 mg/dL 74-106 [facility] Work Phone: Comment on above: Glucose result great er than or equal to 200 mg/dLsuggests DIABETES MELLITUS per A.D.A. criteria. Neutrophils (Bld) [#/Vol] 2.6 10*3/uL 2.0-7.7 [facility] Work Phone: Neutrophils/100 WBC (Bld) 44.2 % 47-70 [facility] Work Phone: [phone] Potassium [Moles/Vol] 3.9 mmol/L 3.5-5.1 [facility] Work Phone: [phone] Protein [Mass/Vol] 7.1 g/dL 6.4-8.2 [facility] Work Phone: [phone] Sodium [Moles/Vol] 135 mmol/L 136-145 [facility] Work Phone: [phone] Triglyceride [Mass/Vol] 105 mg/dL <199 [facility] Work Phone: [phone] Comment on above: The drugs N-Acetylcy steine and Metamizole may falsely depress this assay.Serum Triglycerides Reference Interval Normal <150 mg/dL Borderline high 150 - 199 mg/dL High 200 - 499 mg/dL Very High > or = 500 mg/dL WBC (Bld) [#/Vol] 6.0 10*3/uL 4.4-11.0 [facility] Work Phone: Blood erythrocytes count (nu mber/volume)on 04-09-2022 RBC (Bld) [#/Vol] 3.33 10*6/uL 4.2-5.4 [facility] Work Phone: [phone] Blood hemoglobin measurement (mass/volume)on 04-09-2022 Hemoglobin (Bld) [Mass/Vol] 10.0 g/dL 12.0-15.0 [facility] Work Phone: Blood lymphocytes/100 leukoc yteson 04-09-2022 Lymphocytes/100 WBC (Bld) 41.8 % 19-41 [facility] Work Phone: Blood monocytes/100 leukocyt eson 04-09-2022 Monocytes/100 WBC (Bld) 8.2 % 0-10 [facility] Work Phone: [phone] Blood platelet mean volumeon 04-09-2022 Platelet mean volume (Bld) [Entitic vol] 10.0 fL 6.2-12.0 [facility] Work Phone: [phone] Determination of erythrocyte mean corpuscular volume (MCV)on 04-09-2022 MCV (RBC) [Entitic vol] 88.9 fL 81-99 [facility] Work Phone: [phone] Hematocrit Auto (Bld) [Volum e fraction]on 04-09-2022 Hematocrit (Bld) [Volume fraction] 29.6 % 37-47 [facility] Work Phone: [phone] Laboratory - Chemistry and C hemistry - challengeon 04-09-2022 ALP [Catalytic activity/Vol] 101 U/L 45-117 [facility] Work Phone: [phone] ALT [Catalytic activity/Vol] 20 U/L 13-56 [facility] Work Phone: [phone] CO2 [Moles/Vol] 24.0 mmol/L 21.0-32.0 [facility] Work Phone: [phone] Globulin (S) [Mass/Vol] 4.4 g/dL 2.2-4.2 [facility] Work Phone: [phone] Urea nitrogen/Creatinine [Mass ratio] 10.9 mg/mg 10-20 [facility] Work Phone: [phone] Laboratory - Hematology and Cell countson 04-09-2022 Erythrocyte distribution width (RBC) [Entitic vol] 43.0 fL 35.1-43.9 [facility] Work Phone: [phone] Erythrocyte distribution width (RBC) [Ratio] 13.3 % 11.6-14.6 [facility] Work Phone: [phone] Immature granulocytes/100 WBC (Bld) 0.300 % 0.0-0.9 [facility] Work Phone: [phone] Comment on above: IG% - Immature Granu locytes (promyelocytes, myelocytes and metamyelocytes) > 1% indicates that a LEFT SHIFT is Present. MCH (RBC) [Entitic mass] 30.0 pg 27.0-32.0 [facility] Work Phone: [phone] Nucleated RBC/100 WBC (Bld) [Ratio] 0 % 0-5 [facility] Work Phone: [phone] MCHC Auto (RBC) [Mass/Vol]on 04-09-2022 MCHC (RBC) [Mass/Vol] 33.8 g/dL 32-36 [facility] Work Phone: [phone] Panel Informationon 04-09 Estimated GFR (MDRD) Amer 99 mL/min >60 [facility] Work Phone: [phone] Comment on above: GFR Calc Estimated GFR (MDRD) Non-Af Amer 82 mL/min >60 [facility] Work Phone: [phone] Comment on above: Non- GFR Calc Thyroid Stimulating Hormone (TSH) 5.32 uIU/mL 0.358-3.74 [facility] Work Phone: [phone] Vitamin D 25-Hydroxy 28.3 ng/mL [facility] Work Phone: [phone] Comment on above: Vitamin D 25(OH) Sta tus Range Deficiency <20 ng/mL (50nmol/L) Insufficiency 20 - 30 ng/mL (50 - 75 nmol/L) Sufficiency 30 - 100 ng/mL (75 - 250 nmol/L) Toxicity >100 ng/mL (>250 nmol/L) Platelets bldon 04-09-2022 Platelets (Bld) [#/Vol] 203 10*3/uL 150-450 [facility] Work Phone: [phone] Serum or plasma albumin sabino urement (mass/volume)on 04-09-2022 Albumin [Mass/Vol] 2.7 g/dL 3.2-5.0 [facility] Work Phone: [phone] Serum or plasma albumin/glob ulin mass ratioon 04-09-2022 Albumin/Globulin [Mass ratio] 0.6 {ratio} 0.9-2.4 [facility] Work Phone: Serum or plasma calcium sabino urement (mass/volume)on 04-09-2022 Calcium [Mass/Vol] 8.7 mg/dL 8.5-10.1 [facility] Work Phone: Serum or plasma cholesterol in HDL measurement (mass/volume)on 04-09-2022 Cholesterol in HDL [Mass/Vol] 43 mg/dL >40 [facility] Work Phone: Comment on above: The drugs N-Acetylcy steine and Metamizole may falsely depress this assay. Reference Range HDL <40 mg/dL Low HDL Cholesterol HDL >or= 60 mg/dL High HDL Cholesterol Serum or plasma cholesterol in VLDL measurement (mass/volume)on 04-09-2022 Cholesterol in VLDL [Mass/Vol] 21 mg/dL 5-40 [facility] Work Phone: [phone] Serum or plasma creatinine m easurement (mass/volume)on 04-09-2022 Creatinine [Mass/Vol] 0.74 mg/dL 0.55-1.02 [facility] Work Phone: Comment on above: The validity of the calculated GFR & GFRAA in patients over 70 years has not been determined. Clinical correlation is essential. Serum or plasma low density lipoprotein (LDL) cholesterol measurement (mass/volume)on 04-09-2022 Cholesterol in LDL [Mass/Vol] 90 mg/dL 0-130 [facility] Work Phone: [phone] Serum or plasma urea nitroge n measurement (mass/volume)on 04-09-2022 Urea nitrogen [Mass/Vol] 8 mg/dL 7-18 [facility] Work Phone: [phone] Thin prep Papanicolaou smear with manual screeningon 04-09-2022 Thin prep Papanicolaou smear with manual screening 22 U/L 15-37 [facility] Work Phone: [phone] Thin prep Papanicolaou smear with manual screening 8 5-15 [facility] Work Phone: [phone] Absolute lymphocyte counton 03-21-2022 Lymphocytes Auto (Unsp spec) [#/Vol] 1.58 10*3/uL 0.83-4.51 [facility] Work Phone: Basophil percentageon 2021 Basophils/100 WBC (Bld) 0.2 % 0-1 [facility] Work Phone: Bilirubin [Mass/Vol] 1.60 mg/dL 0.20-1.00 [facility] Work Phone: Comment on above: For patients on eltr ombopag therapy, use of Dimension [place] TBIL is not recommended. Chloride [Moles/Vol] 108 mmol/L 98-107 [facility] Work Phone: Eosinophils/100 WBC (Bld) 0.0 % 0-5 [facility] Work Phone: Glucose [Mass/Vol] 181 mg/dL 74-106 [facility] Work Phone: Comment on above: Fasting Glucose resu lt greater than or equal to 126 mg/dL suggests DIABETES MELLITUS per A.D.A. criteria. Neutrophils (Bld) [#/Vol] 8.6 10*3/uL 2.0-7.7 [facility] Work Phone: Neutrophils/100 WBC (Bld) 79.8 % 47-70 [facility] Work Phone: Potassium [Moles/Vol] 3.3 mmol/L 3.5-5.1 [facility] Work Phone: Protein [Mass/Vol] 6.4 g/dL 6.4-8.2 [facility] Work Phone: Sodium [Moles/Vol] 136 mmol/L 136-145 [facility] Work Phone: WBC (Bld) [#/Vol] 10.8 10*3/uL 4.4-11.0 [facility] Work Phone: Blood erythrocytes count (nu mber/volume)on 03-21-2022 RBC (Bld) [#/Vol] 3.29 10*6/uL 4.2-5.4 [facility] Work Phone: Blood hemoglobin measurement (mass/volume)on 03-21-2022 Hemoglobin (Bld) [Mass/Vol] 10.1 g/dL 12.0-15.0 [facility] Work Phone: Blood lymphocytes/100 leukoc yteson 03-21-2022 Lymphocytes/100 WBC (Bld) 14.6 % 19-41 [facility] Work Phone: Blood monocytes/100 leukocyt eson 03-21-2022 Monocytes/100 WBC (Bld) 4.4 % 0-10 [facility] Work Phone: Blood platelet mean volumeon 03-21-2022 Platelet mean volume (Bld) [Entitic vol] 9.9 fL 6.2-12.0 [facility] Work Phone: Determination of erythrocyte mean corpuscular volume (MCV)on 03-21-2022 MCV (RBC) [Entitic vol] 89.1 fL 81-99 [facility] Work Phone: Glucose Glucometer (BldC) [M ass/Vol]on 03-21-2022 Glucose [Mass/Vol] 172 mg/dL 74-106 [facility] Work Phone: Comment on above: MANAGEMENT OF PATIEN T CARE PER NURSING PROTOCOL Hematocrit Auto (Bld) [Volum e fraction]on 03-21-2022 Hematocrit (Bld) [Volume fraction] 29.3 % 37-47 [facility] Work Phone: Laboratory - Chemistry and C hemistry - challengeon 03-21-2022 ALP [Catalytic activity/Vol] 215 U/L 45-117 [facility] Work Phone: ALT [Catalytic activity/Vol] 82 U/L 13-56 [facility] Work Phone: [phone] CO2 [Moles/Vol] 22.0 mmol/L 21.0-32.0 [facility] Work Phone: [phone] Globulin (S) [Mass/Vol] 4.2 g/dL 2.2-4.2 [facility] Work Phone: [phone] Lipase [Catalytic activity/Vol] 147 U/L 73-393 [facility] Work Phone: [phone] Urea nitrogen/Creatinine [Mass ratio] 17.3 mg/mg 10-20 [facility] Work Phone: [phone] Laboratory - Hematology and Cell countson 03-21-2022 Erythrocyte distribution width (RBC) [Entitic vol] 43.1 fL 35.1-43.9 [facility] Work Phone: [phone] Erythrocyte distribution width (RBC) [Ratio] 13.2 % 11.6-14.6 [facility] Work Phone: [phone] Immature granulocytes/100 WBC (Bld) 1.000 % 0.0-0.9 [facility] Work Phone: [phone] Comment on above: IG% - Immature Granu locytes (promyelocytes, myelocytes and metamyelocytes) > 1% indicates that a LEFT SHIFT is Present. MCH (RBC) [Entitic mass] 30.7 pg 27.0-32.0 [facility] Work Phone: [phone] Nucleated RBC/100 WBC (Bld) [Ratio] 0 % 0-5 [facility] Work Phone: [phone] MCHC Auto (RBC) [Mass/Vol]on 03-21-2022 MCHC (RBC) [Mass/Vol] 34.5 g/dL 32-36 [facility] Work Phone: No Panel Informationon 03-21 Estimated Creatinine Clearance Calc 37.24 ml/min [facility] Work Phone: [phone] Estimated GFR (MDRD) Amer 131 mL/min >60 [facility] Work Phone: [phone] Comment on above: GFR Calc Estimated GFR (MDRD) Non-Af Amer 108 mL/min >60 [facility] Work Phone: [phone] Comment on above: Non- GFR Calc Platelets bldon 03-21-2022 Platelets (Bld) [#/Vol] 187 10*3/uL 150-450 [facility] Work Phone: Serum or plasma albumin sabino urement (mass/volume)on 03-21-2022 Albumin [Mass/Vol] 2.2 g/dL 3.2-5.0 [facility] Work Phone: Serum or plasma albumin/glob ulin mass ratioon 03-21-2022 Albumin/Globulin [Mass ratio] 0.5 {ratio} 0.9-2.4 [facility] Work Phone: [phone] Serum or plasma calcium sabino urement (mass/volume)on 03-21-2022 Calcium [Mass/Vol] 8.2 mg/dL 8.5-10.1 [facility] Work Phone: [phone] Serum or plasma creatinine m easurement (mass/volume)on 03-21-2022 Creatinine [Mass/Vol] 0.58 mg/dL 0.55-1.02 [facility] Work Phone: Comment on above: The validity of the calculated GFR & GFRAA in patients over 70 years has not been determined. Clinical correlation is essential. Serum or plasma urea nitroge n measurement (mass/volume)on 03-21-2022 Urea nitrogen [Mass/Vol] 10 mg/dL 7-18 [facility] Work Phone: Thin prep Papanicolaou smear with manual screeningon 03-21-2022 Thin prep Papanicolaou smear with manual screening 65 U/L 15-37 [facility] Work Phone: [phone] Thin prep Papanicolaou smear with manual screening 6 5-15 [facility] Work Phone: Absolute lymphocyte counton 03-20-2022 Lymphocytes Auto (Unsp spec) [#/Vol] 1.85 10*3/uL 0.83-4.51 [facility] Work Phone: Basophil percentageon 2021 Basophil percentage >100 SEEN /hpf 0-5 [facility] Work Phone: Basophils/100 WBC (Bld) 0.2 % 0-1 [facility] Work Phone: [phone] Bilirubin [Mass/Vol] 3.90 mg/dL 0.20-1.00 [facility] Work Phone: [phone] Comment on above: For patients on eltr ombopag therapy, use of Dimension [place] TBIL is not recommended. Chloride [Moles/Vol] 102 mmol/L 98-107 [facility] Work Phone: Eosinophils/100 WBC (Bld) 0.6 % 0-5 [facility] Work Phone: [phone] Glucose [Mass/Vol] 192 mg/dL 74-106 [facility] Work Phone: [phone] Comment on above: Fasting Glucose resu lt greater than or equal to 126 mg/dL suggests DIABETES MELLITUS per A.D.A. criteria. Neutrophils (Bld) [#/Vol] 16.2 10*3/uL 2.0-7.7 [facility] Work Phone: [phone] Neutrophils/100 WBC (Bld) 82.7 % 47-70 [facility] Work Phone: [phone] Potassium [Moles/Vol] 3.3 mmol/L 3.5-5.1 [facility] Work Phone: [phone] Comment on above: Slight Hemolysis, Re sult may be falsely increased. Protein [Mass/Vol] 7.3 g/dL 6.4-8.2 [facility] Work Phone: [phone] Sodium [Moles/Vol] 133 mmol/L 136-145 [facility] Work Phone: [phone] WBC (Bld) [#/Vol] 19.5 10*3/uL 4.4-11.0 [facility] Work Phone: [phone] Bilirubin Test strip Ql (U)o n 03-20-2022 Bilirubin Ql (U) 3 mg/dL Negative [facility] Work Phone: [phone] Comment on above: COLOR OF URINE MAY A FFECT DIPSTICK RESULTS. Blood erythrocytes count (nu mber/volume)on 03-20-2022 RBC (Bld) [#/Vol] 3.64 10*6/uL 4.2-5.4 [facility] Work Phone: Blood hemoglobin measurement (mass/volume)on 03-20-2022 Hemoglobin (Bld) [Mass/Vol] 11.6 g/dL 12.0-15.0 [facility] Work Phone: Blood lymphocytes/100 leukoc yteson 03-20-2022 Lymphocytes/100 WBC (Bld) 9.5 % 19-41 [facility] Work Phone: [phone] Blood monocytes/100 leukocyt eson 03-20-2022 Monocytes/100 WBC (Bld) 6.0 % 0-10 [facility] Work Phone: Blood platelet mean volumeon 03-20-2022 Platelet mean volume (Bld) [Entitic vol] 10.6 fL 6.2-12.0 [facility] Work Phone: Blood platelet morphology de termination (nominal result)on 03-20-2022 Platelet morphology finding Nom (Bld) CLUMPED [facility] Work Phone: Determination of erythrocyte mean corpuscular volume (MCV)on 03-20-2022 MCV (RBC) [Entitic vol] 88.7 fL 81-99 [facility] Work Phone: Direct bilirubinon Bilirubin.direct [Mass/Vol] 2.33 mg/dL 0.00-0.30 [facility] Work Phone: [phone] Hematocrit Auto (Bld) [Volum e fraction]on 03-20-2022 Hematocrit (Bld) [Volume fraction] 32.3 % 37-47 [facility] Work Phone: [phone] Ketones Test strip Ql (U)on 03-20-2022 Ketones Ql (U) 15 mg/dl Negative [facility] Work Phone: [phone] Laboratory - Chemistry and C hemistry - challengeon 03-20-2022 ALP [Catalytic activity/Vol] 266 U/L 45-117 [facility] Work Phone: ALT [Catalytic activity/Vol] 108 U/L 13-56 [facility] Work Phone: [phone] CO2 [Moles/Vol] 22.0 mmol/L 21.0-32.0 [facility] Work Phone: [phone] Globulin (S) [Mass/Vol] 4.7 g/dL 2.2-4.2 [facility] Work Phone: [phone] Lipase [Catalytic activity/Vol] 05600 U/L 73-393 [facility] Work Phone: [phone] Magnesium [Mass/Vol] 2.0 mg/dL 1.6-2.6 [facility] Work Phone: [phone] Comment on above: Moderate Hemolysis, Result may be falsely increased. Urea nitrogen/Creatinine [Mass ratio] 30.4 mg/mg 10-20 [facility] Work Phone: [phone] Laboratory - Hematology and Cell countson 03-20-2022 Erythrocyte distribution width (RBC) [Entitic vol] 42.5 fL 35.1-43.9 [facility] Work Phone: [phone] Erythrocyte distribution width (RBC) [Ratio] 13.2 % 11.6-14.6 [facility] Work Phone: [phone] Immature granulocytes/100 WBC (Bld) 1.000 % 0.0-0.9 [facility] Work Phone: [phone] Comment on above: IG% - Immature Granu locytes (promyelocytes, myelocytes and metamyelocytes) > 1% indicates that a LEFT SHIFT is Present. MCH (RBC) [Entitic mass] 31.9 pg 27.0-32.0 [facility] Work Phone: [phone] Nucleated RBC/100 WBC (Bld) [Ratio] 0 % 0-5 [facility] Work Phone: [phone] MCHC Auto (RBC) [Mass/Vol]on 03-20-2022 MCHC (RBC) [Mass/Vol] 35.9 g/dL 32-36 [facility] Work Phone: [phone] Mucus LM Ql (Urine sed)on Mucus Ql (Urine sed) 0 SEEN /hpf [facility] Work Phone: [phone] Nitrite Test strip Ql (U)on 03-20-2022 Nitrite Ql (U) Negative Negative [facility] Work Phone: No Panel Informationon 03-20 Estimated Creatinine Clearance Calc 37.24 ml/min [facility] Work Phone: Estimated GFR (MDRD) Amer 127 mL/min >60 [facility] Work Phone: Comment on above: GFR Calc Estimated GFR (MDRD) Non-Af Amer 105 mL/min >60 [facility] Work Phone: Comment on above: Non- GFR Calc Thyroid Stimulating Hormone (TSH) 7.14 uIU/mL 0.358-3.74 [facility] Work Phone: Platelets bldon 03-20-2022 Platelets (Bld) [#/Vol] 227 10*3/uL 150-450 [facility] Work Phone: Protein Test strip Ql (U)on 03-20-2022 Protein Ql (U) 100 mg/dl Negative [facility] Work Phone: [phone] Serum or plasma albumin sabino urement (mass/volume)on 03-20-2022 Albumin [Mass/Vol] 2.6 g/dL 3.2-5.0 [facility] Work Phone: [phone] Serum or plasma calcium sabino urement (mass/volume)on 03-20-2022 Calcium [Mass/Vol] 9.0 mg/dL 8.5-10.1 [facility] Work Phone: [phone] Serum or plasma creatinine m easurement (mass/volume)on 03-20-2022 Creatinine [Mass/Vol] 0.59 mg/dL 0.55-1.02 [facility] Work Phone: Comment on above: The validity of the calculated GFR & GFRAA in patients over 70 years has not been determined. Clinical correlation is essential. Serum or plasma urea nitroge n measurement (mass/volume)on 03-20-2022 Urea nitrogen [Mass/Vol] 18 mg/dL 7-18 [facility] Work Phone: Squamous epithelial cells de tection in urine sediment by light microscopyon 03-20-2022 Epithelial cells.squamous LM Ql (Urine sed) 0-5 SEEN /hpf 5-10 [facility] Work Phone: Thin prep Papanicolaou smear with manual screeningon 03-20-2022 Thin prep Papanicolaou smear with manual screening 133 U/L 15-37 [facility] Work Phone: Comment on above: Slight Hemolysis, Re sult may be falsely increased. Thin prep Papanicolaou smear with manual screening 9 5-15 [facility] Work Phone: Urine blood detectionon - RBC Ql (U) 250 /ul Negative [facility] Work Phone: RBC Ql (U) 5-10 SEEN /hpf 0-5 [facility] Work Phone: Urine clarityon 03-20-2022 Clarity (U) Cloudy Clear [facility] Work Phone: Urine color determinationon 03-20-2022 Color (U) Yellow Yellow [facility] Work Phone: Urine glucose detectionon Glucose Ql (U) 50 mg/dl Normal [facility] Work Phone: Urine leukocyte esterase det ection by dipstickon 03-20-2022 Leukocyte esterase Test strip Ql (U) 500 /ul Negative [facility] Work Phone: Urine pHon 03-20-2022 pH (U) 6.0 [pH] 5.0 - 8.0 [facility] Work Phone: Urine sediment bacteria coun t by microscopy (number/high power field)on 03-20-2022 Bacteria LM.HPF (Urine sed) [#/Area] 4 /[HPF] None Seen [facility] Work Phone: Urine specific gravity measu rementon 03-20-2022 Specific gravity (U) [Rel density] 1.015 1.002-1.030 [facility] Work Phone: Urobilinogen Auto test strip Ql (U)on 03-20-2022 Urobilinogen Ql (U) 12 mg/dl Normal [facility] Work Phone: [phone] Whole blood hemoglobin A1c/t otal hemoglobin ratio (mass fraction)on 03-20-2022 HbA1c (Bld) [Mass fraction] 6.7 % 3.8-5.6 [facility] Work Phone: Comment on above: Normal < 5.7 % Predi abetic 5.7 - 6.4 % Diabetic >or= 6.5 % Please note range changes. Absolute lymphocyte counton 12-22-2021 Lymphocytes Auto (Unsp spec) [#/Vol] 2.26 10*3/uL 0.83-4.51 [facility] Work Phone: Basophil percentageon 2021 Basophils/100 WBC (Bld) 0.5 % 0-1 [facility] Work Phone: Eosinophils/100 WBC (Bld) 2.7 % 0-5 [facility] Work Phone: Neutrophils (Bld) [#/Vol] 2.5 10*3/uL 2.0-7.7 [facility] Work Phone: Neutrophils/100 WBC (Bld) 46.1 % 47-70 [facility] Work Phone: WBC (Bld) [#/Vol] 5.5 10*3/uL 4.4-11.0 [facility] Work Phone: Blood erythrocytes count (nu mber/volume)on 12-22-2021 RBC (Bld) [#/Vol] 3.32 10*6/uL 4.2-5.4 [facility] Work Phone: [phone] Blood hemoglobin measurement (mass/volume)on 12-22-2021 Hemoglobin (Bld) [Mass/Vol] 10.4 g/dL 12.0-15.0 [facility] Work Phone: Blood lymphocytes/100 leukoc yteson 12-22-2021 Lymphocytes/100 WBC (Bld) 41.2 % 19-41 [facility] Work Phone: Blood monocytes/100 leukocyt eson 12-22-2021 Monocytes/100 WBC (Bld) 9.1 % 0-10 [facility] Work Phone: Blood platelet mean volumeon 12-22-2021 Platelet mean volume (Bld) [Entitic vol] 9.6 fL 6.2-12.0 [facility] Work Phone: Determination of erythrocyte mean corpuscular volume (MCV)on 12-22-2021 MCV (RBC) [Entitic vol] 90.7 fL 81-99 [facility] Work Phone: Hematocrit Auto (Bld) [Volum e fraction]on 12-22-2021 Hematocrit (Bld) [Volume fraction] 30.1 % 37-47 [facility] Work Phone: Hemoglobin in reticulocytes (mass per reticulocyte)on 12-22-2021 Hemoglobin (Reticulocytes) [Entitic mass] 34.0 pg 30-35 [facility] Work Phone: Iron measurement (mass/mass) on 12-22-2021 Iron (Unsp spec) [Mass/Mass] 56 ug/dL 50-170 [facility] Work Phone: Laboratory - Chemistry and C hemistry - challengeon 12-22-2021 Cobalamin (Vitamin B12) [Mass/Vol] 1270 pg/mL 211-911 [facility] Work Phone: Laboratory - Hematology and Cell countson 12-22-2021 Erythrocyte distribution width (RBC) [Entitic vol] 44.7 fL 35.1-43.9 [facility] Work Phone: Erythrocyte distribution width (RBC) [Ratio] 13.5 % 11.6-14.6 [facility] Work Phone: Immature granulocytes/100 WBC (Bld) 0.400 % 0.0-0.9 [facility] Work Phone: Comment on above: IG% - Immature Granu locytes (promyelocytes, myelocytes and metamyelocytes) > 1% indicates that a LEFT SHIFT is Present. MCH (RBC) [Entitic mass] 31.3 pg 27.0-32.0 [facility] Work Phone: Nucleated RBC/100 WBC (Bld) [Ratio] 0 % 0-5 [facility] Work Phone: [phone] MCHC Auto (RBC) [Mass/Vol]on 12-22-2021 MCHC (RBC) [Mass/Vol] 34.6 g/dL 32-36 [facility] Work Phone: [phone] Panel Informationon 12-22 Immature Reticulocyte Fraction 3.20 % 3.00-15.90 [facility] Work Phone: Reticulocyte Count 1.42 % 0.5-1.5 [facility] Work Phone: Total Iron Binding Capacity 288 ug/dL 250-450 [facility] Work Phone: Platelets bldon 12-22-2021 Platelets (Bld) [#/Vol] 217 10*3/uL 150-450 [facility] Work Phone: Serum or plasma ferritin uzma surement (mass/volume)on 12-22-2021 Ferritin [Mass/Vol] 20 ng/mL 8-252 [facility] Work Phone: [phone] Serum or plasma folate measu rement (mass/volume)on 12-22-2021 Folate [Mass/Vol] 16.20 ng/mL 3.1-55.4 [facility] Work Phone: [phone] Serum or plasma iron saturat ion measurement (mass fraction)on 12-22-2021 Iron saturation [Mass fraction] 19.4 % 15.0-55.0 [facility] Work Phone: [phone] Absolute lymphocyte counton 12-15-2021 Lymphocytes Auto (Unsp spec) [#/Vol] 2.22 10*3/uL 0.83-4.51 [facility] Work Phone: Basophil percentageon 2021 Basophils/100 WBC (Bld) 0.6 % 0-1 [facility] Work Phone: Bilirubin [Mass/Vol] 1.10 mg/dL 0.20-1.00 [facility] Work Phone: Comment on above: For patients on eltr ombopag therapy, use of Dimension [place] TBIL is not recommended. Chloride [Moles/Vol] 109 mmol/L 98-107 [facility] Work Phone: Cholesterol [Mass/Vol] 160 mg/dL <200 [facility] Work Phone: Comment on above: <200 mg/dL Desirable 200-240 mg/dL Borderline >240 mg/dL High Risk Eosinophils/100 WBC (Bld) 2.4 % 0-5 [facility] Work Phone: Glucose [Mass/Vol] 248 mg/dL 74-106 [facility] Work Phone: Comment on above: Glucose result great er than or equal to 200 mg/dLsuggests DIABETES MELLITUS per A.D.A. criteria. Neutrophils (Bld) [#/Vol] 2.1 10*3/uL 2.0-7.7 [facility] Work Phone: Neutrophils/100 WBC (Bld) 41.5 % 47-70 [facility] Work Phone: Potassium [Moles/Vol] 3.8 mmol/L 3.5-5.1 [facility] Work Phone: Protein [Mass/Vol] 7.1 g/dL 6.4-8.2 [facility] Work Phone: Sodium [Moles/Vol] 140 mmol/L 136-145 [facility] Work Phone: Triglyceride [Mass/Vol] 67 mg/dL <199 [facility] Work Phone: Comment on above: The drugs N-Acetylcy steine and Metamizole may falsely depress this assay.Serum Triglycerides Reference Interval Normal <150 mg/dL Borderline high 150 - 199 mg/dL High 200 - 499 mg/dL Very High > or = 500 mg/dL WBC (Bld) [#/Vol] 5.0 10*3/uL 4.4-11.0 [facility] Work Phone: [phone] Blood erythrocytes count (nu mber/volume)on 12-15-2021 RBC (Bld) [#/Vol] 3.18 10*6/uL 4.2-5.4 [facility] Work Phone: [phone] Blood hemoglobin measurement (mass/volume)on 12-15-2021 Hemoglobin (Bld) [Mass/Vol] 9.9 g/dL 12.0-15.0 [facility] Work Phone: [phone] Blood lymphocytes/100 leukoc yteson 12-15-2021 Lymphocytes/100 WBC (Bld) 44.8 % 19-41 [facility] Work Phone: [phone] Blood monocytes/100 leukocyt eson 12-15-2021 Monocytes/100 WBC (Bld) 10.5 % 0-10 [facility] Work Phone: [phone] Blood platelet mean volumeon 12-15-2021 Platelet mean volume (Bld) [Entitic vol] 10.1 fL 6.2-12.0 [facility] Work Phone: [phone] Determination of erythrocyte mean corpuscular volume (MCV)on 12-15-2021 MCV (RBC) [Entitic vol] 90.6 fL 81-99 [facility] Work Phone: [phone] Hematocrit Auto (Bld) [Volum e fraction]on 12-15-2021 Hematocrit (Bld) [Volume fraction] 28.8 % 37-47 [facility] Work Phone: [phone] Laboratory - Chemistry and C hemistry - challengeon 12-15-2021 ALP [Catalytic activity/Vol] 98 U/L 45-117 [facility] Work Phone: [phone] ALT [Catalytic activity/Vol] 27 U/L 13-56 [facility] Work Phone: [phone] CO2 [Moles/Vol] 23.0 mmol/L 21.0-32.0 [facility] Work Phone: [phone] Globulin (S) [Mass/Vol] 4.1 g/dL 2.2-4.2 [facility] Work Phone: [phone] Urea nitrogen/Creatinine [Mass ratio] 14.4 mg/mg 10-20 [facility] Work Phone: [phone] Laboratory - Hematology and Cell countson 12-15-2021 Erythrocyte distribution width (RBC) [Entitic vol] 46.1 fL 35.1-43.9 [facility] Work Phone: [phone] Erythrocyte distribution width (RBC) [Ratio] 13.8 % 11.6-14.6 [facility] Work Phone: [phone] Immature granulocytes/100 WBC (Bld) 0.200 % 0.0-0.9 [facility] Work Phone: [phone] Comment on above: IG% - Immature Granu locytes (promyelocytes, myelocytes and metamyelocytes) > 1% indicates that a LEFT SHIFT is Present. MCH (RBC) [Entitic mass] 31.1 pg 27.0-32.0 [facility] Work Phone: Nucleated RBC/100 WBC (Bld) [Ratio] 0 % 0-5 [facility] Work Phone: [phone] MCHC Auto (RBC) [Mass/Vol]on 12-15-2021 MCHC (RBC) [Mass/Vol] 34.4 g/dL 32-36 [facility] Work Phone: No Panel Informationon 12-15 Estimated GFR (MDRD) Amer 95 mL/min >60 [facility] Work Phone: [phone] Comment on above: GFR Calc Estimated GFR (MDRD) Non-Af Amer 79 mL/min >60 [facility] Work Phone: [phone] Comment on above: Non- GFR Calc Thyroid Stimulating Hormone (TSH) 4.10 uIU/mL 0.358-3.74 [facility] Work Phone: Vitamin D 25-Hydroxy 27.0 ng/mL [facility] Work Phone: Comment on above: Vitamin D 25(OH) Sta tus Range Deficiency <20 ng/mL (50nmol/L) Insufficiency 20 - 30 ng/mL (50 - 75 nmol/L) Sufficiency 30 - 100 ng/mL (75 - 250 nmol/L) Toxicity >100 ng/mL (>250 nmol/L) Platelets bldon 12-15-2021 Platelets (Bld) [#/Vol] 199 10*3/uL 150-450 [facility] Work Phone: Serum or plasma albumin sabino urement (mass/volume)on 12-15-2021 Albumin [Mass/Vol] 3.0 g/dL 3.2-5.0 [facility] Work Phone: Serum or plasma albumin/glob ulin mass ratioon 12-15-2021 Albumin/Globulin [Mass ratio] 0.7 {ratio} 0.9-2.4 [facility] Work Phone: Serum or plasma calcium sabino urement (mass/volume)on 12-15-2021 Calcium [Mass/Vol] 8.3 mg/dL 8.5-10.1 [facility] Work Phone: Serum or plasma cholesterol in HDL measurement (mass/volume)on 12-15-2021 Cholesterol in HDL [Mass/Vol] 52 mg/dL >40 [facility] Work Phone: Comment on above: The drugs N-Acetylcy steine and Metamizole may falsely depress this assay. Reference Range HDL <40 mg/dL Low HDL Cholesterol HDL >or= 60 mg/dL High HDL Cholesterol Serum or plasma cholesterol in VLDL measurement (mass/volume)on 12-15-2021 Cholesterol in VLDL [Mass/Vol] 13 mg/dL 5-40 [facility] Work Phone: Serum or plasma creatinine m easurement (mass/volume)on 12-15-2021 Creatinine [Mass/Vol] 0.76 mg/dL 0.55-1.02 [facility] Work Phone: Comment on above: The validity of the calculated GFR & GFRAA in patients over 70 years has not been determined. Clinical correlation is essential. Serum or plasma low density lipoprotein (LDL) cholesterol measurement (mass/volume)on 12-15-2021 Cholesterol in LDL [Mass/Vol] 95 mg/dL 0-130 [facility] Work Phone: Serum or plasma urea nitroge n measurement (mass/volume)on 12-15-2021 Urea nitrogen [Mass/Vol] 11 mg/dL 7-18 [facility] Work Phone: Thin prep Papanicolaou smear with manual screeningon 12-15-2021 Thin prep Papanicolaou smear with manual screening 30 U/L 15-37 [facility] Work Phone: Thin prep Papanicolaou smear with manual screening 8 5-15 [facility] Work Phone: Basophil percentageon 2021 Chloride [Moles/Vol] 102 mmol/L 98-107 [facility] Work Phone: Glucose [Mass/Vol] 199 mg/dL 74-106 [facility] Work Phone: Comment on above: Fasting Glucose resu lt greater than or equal to 126 mg/dL suggests DIABETES MELLITUS per A.D.A. criteria. Potassium [Moles/Vol] 4.6 mmol/L 3.5-5.1 [facility] Work Phone: Sodium [Moles/Vol] 132 mmol/L 136-145 [facility] Work Phone: Laboratory - Chemistry and C hemistry - challengeon 09-24-2021 CO2 [Moles/Vol] 24.0 mmol/L 21.0-32.0 [facility] Work Phone: [phone] Urea nitrogen/Creatinine [Mass ratio] 16.5 mg/mg 10-20 [facility] Work Phone: No Panel Informationon 09-24 Estimated GFR (MDRD) Amer 111 mL/min >60 [facility] Work Phone: [phone] Comment on above: GFR Calc Estimated GFR (MDRD) Non-Af Amer 92 mL/min >60 [facility] Work Phone: [phone] Comment on above: Non- GFR Calc Serum or plasma calcium sabino urement (mass/volume)on 09-24-2021 Calcium [Mass/Vol] 8.9 mg/dL 8.5-10.1 [facility] Work Phone: [phone] Serum or plasma creatinine m easurement (mass/volume)on 09-24-2021 Creatinine [Mass/Vol] 0.67 mg/dL 0.55-1.02 [facility] Work Phone: [phone] Comment on above: The validity of the calculated GFR & GFRAA in patients over 70 years has not been determined. Clinical correlation is essential. Serum or plasma urea nitroge n measurement (mass/volume)on 09-24-2021 Urea nitrogen [Mass/Vol] 11 mg/dL 7-18 [facility] Work Phone: [phone] Thin prep Papanicolaou smear with manual screeningon 09-24-2021 Thin prep Papanicolaou smear with manual screening 6 5-15 [facility] Work Phone: [phone] Absolute lymphocyte counton 09-15-2021 Lymphocytes Auto (Unsp spec) [#/Vol] 3.60 10*3/uL 0.83-4.51 [facility] Work Phone: [phone] Basophil percentageon 2021 Basophils/100 WBC (Bld) 0.6 % 0-1 [facility] Work Phone: [phone] Bilirubin [Mass/Vol] 1.40 mg/dL 0.20-1.00 [facility] Work Phone: [phone] Comment on above: For patients on eltr ombopag therapy, use of Dimension [place] TBIL is not recommended. Chloride [Moles/Vol] 103 mmol/L 98-107 [facility] Work Phone: Eosinophils/100 WBC (Bld) 1.6 % 0-5 [facility] Work Phone: Glucose [Mass/Vol] 315 mg/dL 74-106 [facility] Work Phone: Comment on above: Glucose result great er than or equal to 200 mg/dLsuggests DIABETES MELLITUS per A.D.A. criteria. Neutrophils (Bld) [#/Vol] 3.7 10*3/uL 2.0-7.7 [facility] Work Phone: Neutrophils/100 WBC (Bld) 45.5 % 47-70 [facility] Work Phone: Potassium [Moles/Vol] 3.3 mmol/L 3.5-5.1 [facility] Work Phone: Protein [Mass/Vol] 8.0 g/dL 6.4-8.2 [facility] Work Phone: Sodium [Moles/Vol] 135 mmol/L 136-145 [facility] Work Phone: WBC (Bld) [#/Vol] 8.1 10*3/uL 4.4-11.0 [facility] Work Phone: Blood erythrocytes count (nu mber/volume)on 09-15-2021 RBC (Bld) [#/Vol] 3.86 10*6/uL 4.2-5.4 [facility] Work Phone: Blood hemoglobin measurement (mass/volume)on 09-15-2021 Hemoglobin (Bld) [Mass/Vol] 12.2 g/dL 12.0-15.0 [facility] Work Phone: Blood lymphocytes/100 leukoc yteson 09-15-2021 Lymphocytes/100 WBC (Bld) 44.3 % 19-41 [facility] Work Phone: Blood monocytes/100 leukocyt eson 09-15-2021 Monocytes/100 WBC (Bld) 7.8 % 0-10 [facility] Work Phone: Blood platelet mean volumeon 09-15-2021 Platelet mean volume (Bld) [Entitic vol] 9.9 fL 6.2-12.0 [facility] Work Phone: [phone] Determination of erythrocyte mean corpuscular volume (MCV)on 09-15-2021 MCV (RBC) [Entitic vol] 87.8 fL 81-99 [facility] Work Phone: [phone] Hematocrit Auto (Bld) [Volum e fraction]on 09-15-2021 Hematocrit (Bld) [Volume fraction] 33.9 % 37-47 [facility] Work Phone: [phone] Laboratory - Chemistry and C hemistry - challengeon 09-15-2021 ALP [Catalytic activity/Vol] 131 U/L 45-117 [facility] Work Phone: [phone] ALT [Catalytic activity/Vol] 23 U/L 13-56 [facility] Work Phone: [phone] CO2 [Moles/Vol] 24.0 mmol/L 21.0-32.0 [facility] Work Phone: [phone] Globulin (S) [Mass/Vol] 4.9 g/dL 2.2-4.2 [facility] Work Phone: [phone] Urea nitrogen/Creatinine [Mass ratio] 15.6 mg/mg 10-20 [facility] Work Phone: [phone] Laboratory - Hematology and Cell countson 09-15-2021 Erythrocyte distribution width (RBC) [Entitic vol] 43.9 fL 35.1-43.9 [facility] Work Phone: [phone] Erythrocyte distribution width (RBC) [Ratio] 13.8 % 11.6-14.6 [facility] Work Phone: [phone] Immature granulocytes/100 WBC (Bld) 0.200 % 0.0-0.9 [facility] Work Phone: [phone] Comment on above: IG% - Immature Granu locytes (promyelocytes, myelocytes and metamyelocytes) > 1% indicates that a LEFT SHIFT is Present. MCH (RBC) [Entitic mass] 31.6 pg 27.0-32.0 [facility] Work Phone: [phone] Nucleated RBC/100 WBC (Bld) [Ratio] 0 % 0-5 [facility] Work Phone: MCHC Auto (RBC) [Mass/Vol]on 09-15-2021 MCHC (RBC) [Mass/Vol] 36.0 g/dL 32-36 [facility] Work Phone: No Panel Informationon 09-15 Estimated GFR (MDRD) Amer 104 mL/min >60 [facility] Work Phone: Comment on above: GFR Calc Estimated GFR (MDRD) Non-Af Amer 86 mL/min >60 [facility] Work Phone: Comment on above: Non- GFR Calc Thyroid Stimulating Hormone (TSH) 6.85 uIU/mL 0.358-3.74 [facility] Work Phone: [phone] Vitamin D 25-Hydroxy 29.7 ng/mL [facility] Work Phone: Comment on above: Vitamin D 25(OH) Sta tus Range Deficiency <20 ng/mL (50nmol/L) Insufficiency 20 - 30 ng/mL (50 - 75 nmol/L) Sufficiency 30 - 100 ng/mL (75 - 250 nmol/L) Toxicity >100 ng/mL (>250 nmol/L) Platelets bldon 09-15-2021 Platelets (Bld) [#/Vol] 220 10*3/uL 150-450 [facility] Work Phone: [phone] Serum or plasma albumin sabino urement (mass/volume)on 09-15-2021 Albumin [Mass/Vol] 3.1 g/dL 3.2-5.0 [facility] Work Phone: [phone] Serum or plasma albumin/glob ulin mass ratioon 09-15-2021 Albumin/Globulin [Mass ratio] 0.6 {ratio} 0.9-2.4 [facility] Work Phone: [phone] Serum or plasma calcium sabino urement (mass/volume)on 09-15-2021 Calcium [Mass/Vol] 8.9 mg/dL 8.5-10.1 [facility] Work Phone: Serum or plasma creatinine m easurement (mass/volume)on 09-15-2021 Creatinine [Mass/Vol] 0.71 mg/dL 0.55-1.02 [facility] Work Phone: Comment on above: The validity of the calculated GFR & GFRAA in patients over 70 years has not been determined. Clinical correlation is essential. Serum or plasma urea nitroge n measurement (mass/volume)on 09-15-2021 Urea nitrogen [Mass/Vol] 11 mg/dL 7-18 [facility] Work Phone: Thin prep Papanicolaou smear with manual screeningon 09-15-2021 Thin prep Papanicolaou smear with manual screening 26 U/L 15-37 [facility] Work Phone: Thin prep Papanicolaou smear with manual screening 8 5-15 [facility] Work Phone: NM Myocardial Perf Imaging M ulti Specton 02-15-2017 NM Myocardial Perf Imaging Multi Spect Patient Name: SHASHI OSWALD Nuc Med Exam Date/Time 02/15/2017 10:12:43 EDT Exam NM Myocardial Perf Imaging Multi Spect Ordering Physician MD TRENA, JOE Robert Accession Number [id number] CPT4 Codes 76858 (), [id number] (NM EKG TREADMILL - NUCLEAR) Reason For Exam CHEST PAIN, ACUTE CORONARY SYNDROME SUSPECT Report *Nuclear Cardiology* [place] [id number] Fax #: [email or web address] --- Nuclear Stress Myocardial Perfusion Study Regadenoson Protocol Gated SPECT Patient: Shashi Oswald Height: (61 in) Weight: (141.9 lb) : 1945 Age: 71 Gender: F Study Date: 02/15/2017 Accession#: Patient Room #: *ORDERING PHYSICIAN: * Joe Hein *SUPERVISING PHYSICIAN: * Raymundo Murphy, *RN: * Damaris Bright MD *RADIOLOGIST: * Jazmin Diego MD *NUCLEAR TECH: * Deepti Sanchez *READING PHYSICIAN: * Ash Orourke MD, [facility] --- Indications: Chest pain. --- Summary: [...] peak heart rate and blood pressure was 67892 mm Hg/min. The patient experienced no chest [...] Final Dictated: 02/15/2017 4:09 pm Dictating Physician: MD BRYCE., [facility] Signed Date and Time: 02/15/2017 4:09 pm Signed by: MD. BRYCE, [facility] Normal [facility] Rad Signatureon [place] Rad Signature Patient Name: SHASHI OSWALD Nuc Med Exam Date/Time 02/15/2017 08:18:01 EDT Exam [place] Rad Signature Ordering Physician HODAN, EMMANUEL [place] Accession Number [id number] Reason For Exam Rad signature Report --- Indications: Chest pain. --- Summary: [...] peak heart rate and blood pressure was 89377 mm Hg/min. The patient experienced no chest [...] and Time: 02/03/2018 9:58 Transcribed By:ROSALINDA Normal [facility] Basic Metabolic Panelon 06- Anion gap 12 mmol/L Normal [facility] Comment on above: Performed By: #### H EMOG, BMP3, TROPN, LIPD2, TSH4, HA1C2 ####[place] [address] [place] [address] Creatinine 0.62 mg/dL Normal 0.55-1.40 [facility] Comment on above: Performed By: #### H EMOG, BMP3, TROPN, LIPD2, TSH4, HA1C2 ####[place] [address] [place] [address] eGFR (black) mL/min/{1.73_m2} Normal >60 [facility] Comment on above: Performed By: #### H EMOG, BMP3, TROPN, LIPD2, TSH4, HA1C2 ####[place] [address] [place] [address] eGFR (non-black) mL/min/{1.73_m2} Normal >60 [facility] Comment on above: Result Comment: Sour ce- MDRD equation with creatinine calibration to IDMS(NKDEP)eGFR not recommended for drug dose adjustment Performed By: #### H EMOG, BMP3, TROPN, LIPD2, TSH4, HA1C2 ####[place] [address] [place] [address] CO2 20 mmol/L Low 21-32 [facility] Comment on above: Performed By: #### H EMOG, BMP3, TROPN, LIPD2, TSH4, HA1C2 ####[place] [address] [place] [address] Glucose mass conc 201 mg/dL High 70-100 [facility] Comment on above: Performed By: #### H EMOG, BMP3, TROPN, LIPD2, TSH4, HA1C2 ####[place] [address] [place] [address] Urea nitrogen 14 mg/dL Normal 7-25 [facility] Comment on above: Performed By: #### H EMOG, BMP3, TROPN, LIPD2, TSH4, HA1C2 ####[address] [address] Calcium 9.2 mg/dL Normal 8.2-10.1 [facility] Comment on above: Performed By: #### H EMOG, BMP3, TROPN, LIPD2, TSH4, HA1C2 ####[address] [address] Chloride 104 mmol/L Normal 98-109 [facility] Comment on above: Performed By: #### H EMOG, BMP3, TROPN, LIPD2, TSH4, HA1C2 ####[address] [address] Potassium molar conc 3.6 mmol/L Normal 3.5-5.1 [facility] Comment on above: Performed By: #### H EMOG, BMP3, TROPN, LIPD2, TSH4, HA1C2 ####[address] [address] Sodium 136 mmol/L Normal 135-145 [facility] Comment on above: Performed By: #### H EMOG, BMP3, TROPN, LIPD2, TSH4, HA1C2 ####[address] [address] Hemoglobin A1Con 02-14-2017 Glucose mass conc 143 mg/dL Normal [facility] Comment on above: Performed By: #### H EMOG, BMP3, TROPN, LIPD2, TSH4, HA1C2 ####[address] [address] Hemoglobin A1c/Hemoglobin.total mass fraction (Bld) 6.6 % High 4.0-5.6 [facility] Comment on above: Result Comment: --Hg bA1C levels may not be accurate in patients who haverenal disease, received recent blood transfusions, are anemic,or who have dyshemoglobinemia. Performed By: #### H EMOG, BMP3, TROPN, LIPD2, TSH4, HA1C2 ####[address] [address] Hemogramon 02-14-2017 Erythrocyte distribution width Auto Ratio (RBC) 14.6 % High 11.5-14.5 [facility] Comment on above: Performed By: #### H EMOG, BMP3, TROPN, LIPD2, TSH4, HA1C2 ####[place] [address] Erythrocytes (RBC) 3.71 10*6/uL Low 3.80-5.20 [facility] Comment on above: Performed By: #### H EMOG, BMP3, TROPN, LIPD2, TSH4, HA1C2 ####[place] [address] Hematocrit (HCT) 33.2 % Low 35.0-47.0 [facility] Comment on above: Performed By: #### H EMOG, BMP3, TROPN, LIPD2, TSH4, HA1C2 ####[place] [address] Hemoglobin mass conc (Bld) 11.4 g/dL Low 11.7-16.0 [facility] Comment on above: Performed By: #### H EMOG, BMP3, TROPN, LIPD2, TSH4, HA1C2 ####[place] [address] MCH 30.9 pg Normal 26.0-34.0 [facility] Comment on above: Performed By: #### H EMOG, BMP3, TROPN, LIPD2, TSH4, HA1C2 ####[place] [address] MCHC mass conc (RBC) 34.4 % Normal 32.0-36.0 [facility] Comment on above: Performed By: #### H EMOG, BMP3, TROPN, LIPD2, TSH4, HA1C2 ####[place] [address] MCV 89.7 fL Normal 79.0-98.0 [facility] Comment on above: Performed By: #### H EMOG, BMP3, TROPN, LIPD2, TSH4, HA1C2 ####[address] [place] [address] Platelet mean volume (PMV) 8.2 fL Normal 7.4-10.4 [facility] Comment on above: Performed By: #### H EMOG, BMP3, TROPN, LIPD2, TSH4, HA1C2 ####[address] [place] [address] Platelets 238 10*3/uL Normal 140-440 [facility] Comment on above: Performed By: #### H EMOG, BMP3, TROPN, LIPD2, TSH4, HA1C2 ####[address] [place] [address] WBC (Leukocytes) 9.1 10*3/uL Normal 3.6-10.7 [facility] Comment on above: Performed By: #### H EMOG, BMP3, TROPN, LIPD2, TSH4, HA1C2 ####[address] [address] Lipid Panelon 02-14-2017 Cholesterol to HDL Ratio 3 {ratio} Normal [facility] Comment on above: Result Comment: Ref Range:< 3 Low Risk for CHD3-6 Mod Risk for CHD> 6 High Risk for CHD Performed By: #### H EMOG, BMP3, TROPN, LIPD2, TSH4, HA1C2 ####[address] [address] HDL Cholesterol 42 mg/dL Normal 40-59 [facility] Comment on above: Performed By: #### H EMOG, BMP3, TROPN, LIPD2, TSH4, HA1C2 ####[address] [address] Low Density Lipoprotein 48 mg/dL Normal <100 [facility] Comment on above: Performed By: #### H EMOG, BMP3, TROPN, LIPD2, TSH4, HA1C2 ####[address] [address] Cholesterol 125 mg/dL Normal < 200 [facility] Comment on above: Performed By: #### H EMOG, BMP3, TROPN, LIPD2, TSH4, HA1C2 ####[place] [address] Triglyceride 176 mg/dL Abnormal <150 [facility] Comment on above: Performed By: #### H EMOG, BMP3, TROPN, LIPD2, TSH4, HA1C2 ####[place] [address] Thyroid Stim. Hormoneon 01-22 Thyroid Stim. Hormone 1.430 uU/mL Normal 0.358-3.740 [facility] Comment on above: Performed By: #### H EMOG, BMP3, TROPN, LIPD2, TSH4, HA1C2 ####[place] [address] Troponin Ion 02-14-2017 Troponin I.cardiac mass conc 0.544 ng/mL High 0.000-0.045 [facility] Comment on above: Result Comment: 0.04 6 - 0.400 = Indeterminate> 0.400 = Consider Myocardial Injury Performed By: #### T ROPN ####[place] [address] Troponin I.cardiac mass conc 0.709 ng/mL High 0.000-0.045 [facility] Comment on above: Result Comment: 0.04 6 - 0.400 = Indeterminate> 0.400 = Consider Myocardial Injury Performed By: #### T ROPN ####[place] [address] Troponin I.cardiac mass conc 0.844 ng/mL High 0.000-0.045 [facility] Comment on above: Result Comment: 0.04 6 - 0.400 = Indeterminate> 0.400 = Consider Myocardial Injury Performed By: #### H EMOG, BMP3, TROPN, LIPD2, TSH4, HA1C2 ####[place] [address] Urinalysis,Macroon 7 Bilirubin (direct) Negative Normal Negative [facility] Comment on above: Performed By: #### U AMAC ####[address] [place] [address] Ketone,Urine Negative Normal Negative [facility] Comment on above: Performed By: #### U AMAC ####[address] [place] [address] Occult Blood,Ur Negative Normal Negative [facility] Comment on above: Performed By: #### U AMAC ####[address] [place] [address] Specific Baltic,Urine 1.010 Normal 1.005-1.030 [facility] Comment on above: Performed By: #### U AMAC ####[address] [place] [address] Total Protein,Urine Negative Normal Negative [facility] Comment on above: Performed By: #### U AMAC ####[address] [place] [address] Urine, appearance clear Normal Clear [facility] Comment on above: Performed By: #### U AMAC ####[address] [place] [address] Urine, color p. yel Normal Lt. Yellow [facility] Comment on above: Performed By: #### U AMAC ####[address] [place] [address] Urine, glucose presence 1000 mg/dL Normal Negative [facility] Comment on above: Performed By: #### U AMAC ####[address] [place] [address] Urine, nitrite presence Negative Normal Negative [facility] Comment on above: Performed By: #### U AMAC ####[address] [place] [address] Urine, pH 5.0 [pH] Normal 5.0-8.0 [facility] Comment on above: Performed By: #### U AMAC ####[address] [place] [address] Urine, urobilinogen 1 mg/dL Normal 0-1 [facility] Comment on above: Performed By: #### U AMAC ####[place] [address] WBC (Leukocytes) Negative Normal Negative [facility] Comment on above: Performed By: #### U AMAC ####[address] [address] Culture, urine Bacteria identified Cx Nom (U) Presumptive E. coli [facility] Work Phone: Vital Signs Date Time Vital Sign Value Performing Clinician Faci lity 03-18-2025 12:23-0400 Body temperature 98.3 [degF] Dr. Candelario Santana MD Work Phone: 5(257)791-555916 [place] [address] 03-18-2025 12:23-0400 Diastolic blood pressure 51 mm[Hg] Dr. Candelario Santana MD Work Phone: 9(589)326-657837 [place] [address] 03-18-2025 12:23-0400 Heart rate 69 /min Dr. Candelario Santana MD Work Phone: 9(888)330-237537 [place] [address] 03-18-2025 12:23-0400 Respiratory rate 12 /min Dr. Candelario Santana MD Work Phone: 6(608)791-335916 [place] [address] 03-18-2025 12:23-0400 SaO2% (BldA) [Mass fraction] 100 % Dr. Candelario Santana MD Work Phone: 0(724)014-283403 [address] 03-18-2025 12:23-0400 Systolic blood pressure 118 mm[Hg] Dr. Candelario Santana MD Work Phone: 1(221)392-566716 [place] [address] 03-18-2025 10:21-0400 Body height 157.[address] Candelario Santana MD Work Phone: 4(725)692-523516 [place] [address] 03-18-2025 10:21-0400 Body mass index (BMI) [Ratio] 23.1 kg/m2 Dr. Candelario Santana MD Work Phone: 1(107)092-760937 [place] [address] 03-18-2025 10:21-0400 Body weight 57.[address] Candelario Santana MD Work Phone: 1(211)414-708837 [place] [address] 03-09-2025 08:10-0400 Diastolic blood pressure 46 mm[Hg] Dr. Candelario Santana MD Work Phone: [facility] 03-09-2025 08:10-0400 Heart rate 63 /min Dr. Candelario Santana MD Work Phone: 2(748)891-934916 [place] [address] 03-09-2025 08:10-0400 Systolic blood pressure 146 mm[Hg] Dr. Candelario Santana MD Work Phone: 0(109)113-509837 [place] [address] 03-09-2025 06:00-0400 Body temperature 97.9 [degF] Dr. Candelario Santana MD Work Phone: 1(987)790-756016 [place] [address] 03-09-2025 06:00-0400 Respiratory rate 16 /min Dr. Candelario Santana MD Work Phone: 3(191)377-599237 [place] [address] 03-09-2025 06:00-0400 SaO2% (BldA) [Mass fraction] 99 % Dr. Candelario Santana MD Work Phone: 6(920)300-319537 [place] [address] 03-07-2025 06:00-0400 Body mass index (BMI) [Ratio] 23.5 kg/m2 Dr. Candelario Santana MD Work Phone: 0(153)152-679637 [place] [address] 03-07-2025 06:00-0400 Body weight 58.[address] Candelario Santana MD Work Phone: 4(711)560-517637 [place] [address] 03-04-2025 13:25-0400 Body height 157.[address] Candelario Santana MD Work Phone: 6(449)363-241037 [place] [address] 02-21-2025 12:07-0400 Body temperature 97.8 [degF] Dr. Candelario Santana MD Work Phone: 6(422)504-196716 [place] [address] 02-21-2025 12:07-0400 Diastolic blood pressure 56 mm[Hg] Dr. Candelario Santana MD Work Phone: 1(741)489-810037 [place] [address] 02-21-2025 12:07-0400 Heart rate 81 /min Dr. Candelario Santana MD Work Phone: 5(408)862-707216 [place] [address] 02-21-2025 12:07-0400 Respiratory rate 16 /min Dr. Candelario Santana MD Work Phone: 4(866)125-481437 [place] [address] 02-21-2025 12:07-0400 SaO2% (BldA) [Mass fraction] 100 % Dr. Candelario Santana MD Work Phone: 4(173)403-984937 [place] [address] 02-21-2025 12:07-0400 Systolic blood pressure 122 mm[Hg] Dr. Candelario Santana MD Work Phone: 7(496)005-438337 [place] [address] 02-19-2025 12:27-0400 Body height 154.[address] Candelario Santana MD Work Phone: 0(351)302-244637 [place] [address] 02-19-2025 12:27-0400 Body weight 57.[address] Candelario Santana MD Work Phone: 0(026)498-746437 [place] [address] 02-16-2025 08:45-0400 Inhaled oxygen flow rate 2 L/min Dr. Candelario Santana MD Work Phone: 7(023)739-777237 [place] [address] 02-15-2025 16:04-0400 Body mass index (BMI) [Ratio] 23.8 kg/m2 Dr. Candelario Santana MD Work Phone: 2(733)110-054337 [place] [address] 02-15-2025 15:32-0400 Body temperature 98.6 [degF] Dr. Candelario Santana MD Work Phone: 6(705)682-302737 [place] [address] 02-15-2025 15:32-0400 Diastolic blood pressure 66 mm[Hg] Dr. Candelario Santana MD Work Phone: 7(748)574-425037 [place] [address] 02-15-2025 15:32-0400 Heart rate 78 /min Dr. Candelario Santana MD Work Phone: 5(921)677-450637 [place] [address] 02-15-2025 15:32-0400 Respiratory rate 15 /min Dr. Candelario Santana MD Work Phone: 9(526)963-003737 [place] [address] 02-15-2025 15:32-0400 SaO2% (BldA) [Mass fraction] 100 % Dr. Candelario Santana MD Work Phone: 9(833)891-617337 [place] [address] 02-15-2025 15:32-0400 Systolic blood pressure 113 mm[Hg] Dr. Candelario Santana MD Work Phone: 5(510)272-975137 [place] [address] 02-15-2025 13:11-0400 Body height 154.[address] Candelario Santana MD Work Phone: 4(508)893-721216 [place] [address] 02-15-2025 13:11-0400 Body mass index (BMI) [Ratio] 26.9 kg/m2 Dr. Candelario Santana MD Work Phone: 2(458)103-758416 [place] [address] 02-15-2025 13:110400 Body weight 64.[address] Candelario Santana MD Work Phone: 7(920)400-999516 [place] [address] 11-24-2022 14:15-0400 Body temperature 97.4 [degF] Dr. Candelario Santana Work Phone: 9(613)283-210816 [place] [address] 11-24-2022 14:15-0400 Diastolic blood pressure 61 mm[Hg] Dr. Candelario Santana Work Phone: 4(630)772-990437 [place] [address] 11-24-2022 14:15-0400 Heart rate 69 /min Dr. Candelario Santana Work Phone: 9(681)460-024116 [place] [address] 11-24-2022 14:15-0400 Respiratory rate 16 /min Dr. aCndelario Santana Work Phone: 2(926)150-677716 [place] [address] 11-24-2022 14:15-0400 SaO2% (BldA) [Mass fraction] 100 % Dr. Candelario Santana Work Phone: 1(200)979-393616 [place] [address] 11-24-2022 14:15-0400 Systolic blood pressure 106 mm[Hg] Dr. Candelario Santana Work Phone: 2(482)762-576416 [place] [address] 11-24-2022 11:22-0400 Body height 154.[address] Candelario Santana Work Phone: 7(559)153-961316 [place] [address] 11-24-2022 11:22-0400 Body mass index (BMI) [Ratio] 26 kg/m2 Dr. Candelario Santana Work Phone: 1(521)651-249816 [place] [address] 11-24-2022 11:22-0400 Body weight 62.[address] Candelario Santana Work Phone: 4(958)269-626416 [place] [address] 06-18-2022 15:27-0400 Body height 154.[address] Candelario Santnaa Work Phone: [facility] 06-18-2022 15:27-0400 Body mass index (BMI) [Ratio] 26.3 kg/m2 Dr. Candelario Santana Work Phone: [facility] 06-18-2022 15:27-0400 Body weight 63.[address] Candelario Santana Work Phone: [facility] 03-21-2022 09:34-0400 Body temperature 97.8 [degF] Dr. Candelario Santana Work Phone: [facility] Work Phone: 03-21-2022 09:34-0400 Diastolic blood pressure 66 mm[Hg] Dr. Candelario Santana Work Phone: [facility] Work Phone: 03-21-2022 09:34-0400 Heart rate 73 /min Dr. Candelario Santana Work Phone: [facility] Work Phone: 03-21-2022 09:34-0400 Respiratory rate 18 /min Dr. Canedlario Santana Work Phone: [facility] Work Phone: 03-21-2022 09:34-0400 SaO2% (BldA) [Mass fraction] 97 % Dr. Candelario Santana Work Phone: [facility] Work Phone: 03-21-2022 09:34-0400 Systolic blood pressure 127 mm[Hg] Dr. Candelario Santana Work Phone: [facility] Work Phone: 03-21-2022 06:00-0400 Body weight 69.[address] Candelario Santana Work Phone: [facility] Work Phone: 03-20-2022 10:23-0400 Body height 154.[address] Candelario Santana Work Phone: [facility] Work Phone: 03-20-2022 10:23-0400 Body mass index (BMI) [Ratio] 25.8 kg/m2 Dr. Candelario Santana Work Phone: [facility] Work Phone: 03-20-2022 04:57-0400 Body temperature 98 [degF] Dr. Candelario Santana Work Phone: [facility] Work Phone: 03-20-2022 04:57-0400 Diastolic blood pressure 75 mm[Hg] Dr. Candelario Santana Work Phone: [facility] Work Phone: 03-20-2022 04:57-0400 Heart rate 77 /min Dr. Candelario Santana Work Phone: [facility] Work Phone: 03-20-2022 04:57-0400 Respiratory rate 16 /min Dr. Candelario Santana Work Phone: [facility] Work Phone: 03-20-2022 04:57-0400 SaO2% (BldA) [Mass fraction] 97 % Dr. Candelario Santana Work Phone: [facility] Work Phone: 03-20-2022 04:57-0400 Systolic blood pressure 98 mm[Hg] Dr. Candelario Santana Work Phone: [facility] Work Phone: 03-20-2022 02:07-0400 Body height 154.[address] Candelario Santana Work Phone: [facility] Work Phone: 03-20-2022 02:07-0400 Body mass index (BMI) [Ratio] 28 kg/m2 Dr. Candelario Santana Work Phone: [facility] Work Phone: 03-20-2022 02:07-0400 Body weight 67.[address] Candelario Santana Work Phone: [facility] Work Phone: Encounters Encounter Date Encounter Type Care Provider Facility Start: 07-04-2025 ambulatory Baldev Sesar [facility] Start: 07-03-2025 ambulatory Sergo Shiv [facility] Start: 07-03-2025 Evaluation and management of inpatient Rojas Elizalde Facility:[facility] Start: 07-03-2025 ambulatory Rojas Elizalde Facility:[facility] Start: 05-11-2025 ambulatory Candelario Chi Max [facility] Start: 04-26-2025 ambulatory Sergo Shiv [facility] Start: 04-10-2025 ambulatory Candelario Chi Max [facility] Start: 03-29-2025 End: 03-29-[address] Steve Werner MD -[facility] Start: 03-29-2025 End: 03-29-[address] Candelario Santana MD Work Phone: -[facility] Start: 03-22-2025 ambulatory Candelario Chi Max Facility:[facility] Start: 03-20-2025 ambulatory Candelario Chi Max Facility:[facility] Start: 03-20-[address] Pineda shen MD -[facility] Start: 03-18-2025 End: 03-18-2025 Emergency department patient visit Dr. Candelario Santana MD Work Phone: -Emergency Department Work Phone: Start: 03-13-2025 ambulatory Candelario Chi Max Facility:[facility] Start: 03-13-[address] Pineda shen MD -[facility] Start: 03-08-2025 Non-patient / Non-visit Dr. Katie Bah DO [facility] Work Phone: Start: 03-06-2025 Non-patient / Non-visit Dr. Katie Bah DO [facility] Work Phone: Start: 03-05-2025 Non-patient / Non-visit [facility] Start: 03-05-2025 Non-patient / Non-visit Dr. Katie Bah [facility] Work Phone: Start: 03-01-2025 ambulatory Candelario Chi Max Facility:[facility] Start: 03-01-2025 Non-patient / Non-visit Dr. Baldev Kaba MD -[facility] Start: 03-01-2025 Non-patient / Non-visit Dr. Katie Bah [facility] Work Phone: Start: 02-28-2025 Non-patient / Non-visit Dr. Katie Bah [facility] Work Phone: Start: 02-27-2025 ambulatory Candelario Chi Max Facility:[facility] Start: 02-27-2025 Non-patient / Non-visit Dr. Steve Werner MD -[facility] Start: 02-26-2025 Non-patient / Non-visit Dr. Katie Bah [facility] Work Phone: Start: 02-23-2025 Non-patient / Non-visit Dr. Katie Bah DO [facility] Work Phone: Start: 02-22-2025 Non-patient / Non-visit Dr. Katie Bah [facility] Work Phone: Start: 02-21-2025 ambulatory Candelario Chi Max Facility:[facility] Start: 02-21-2025 End: 03-09-2025 Evaluation and management of inpatient Dr. Katie Bah DO -Rehab Unit Work Phone: Start: 02-21-2025 Non-patient / Non-visit Dr. Gia [facility] Work Phone: Start: 02-20-2025 Non-patient / Non-visit Dr. G[facility] Work Phone: Start: 02-19-2025 Non-patient / Non-visit Dr. Gia [facility] Work Phone: Start: 02-19-2025 Non-patient / Non-visit Dr. Matt Chacon MD -[facility] Start: 02-18-2025 Non-patient / Non-visit Dr. Gia Owusu [facility] Work Phone: Start: 02-17-2025 Non-patient / Non-visit Dr. Matt Chacon MD -[facility] Start: 02-17-2025 Non-patient / Non-visit Dr. Gia Owusu [facility] Work Phone: Start: 02-16-2025 Non-patient / Non-visit Dr. Matt Chacon MD -[facility] Start: 02-16-2025 Non-patient / Non-visit Dr. Baldev Berry [facility] Work Phone: Start: 02-16-2025 End: 02-16-2025 ambulatory Candelario Santana Facility:[facility] Start: 02-16-2025 End: 02-16-2025 Non-patient / Non-visit Dr. Sergo Chaney MD -[facility] Work Phone: Start: 02-15-2025 ambulatory [facility] Facility:[facility] Start: 02-15-2025 End: 02-21-2025 Evaluation and management of inpatient Dr. Lakeshia Mas MD -[facility] Work Phone: Start: 12-27-2024 End: 12-27-[address] Candelario Santana MD Work Phone: [facility] Work Phone: Start: 12-27-2024 End: 12-27-[address] Candelario Santana MD -Laboratory Work Phone: Start: 12-27-2024 End: 12-27-2024 ambulatory Candelario Santana Facility:[facility] Start: 09-25-2024 End: 09-25-[address] Candelario Santana MD -Laboratory Work Phone: Start: 09-25-2024 End: 09-25-2024 ambulatory Candelario Santana Facility:[facility] Start: 07-19-2024 ambulatory [facility] Facility:[facility] Start: 12-20-2023 End: 12-20-[address] [facility] Work Phone: Start: 12-20-2023 End: 12-20-2023 [facility] Work Phone: Start: 09-21-2023 End: 09-21-[address] [facility] Work Phone: Start: 09-21-2023 End: 09-21-2023 [facility] Start: 06-15-2023 End: 06-15-2023 Patient encounter procedure [facility] Phy Office 3rd Flr Start: 03-17-2023 End: 03-17-[address] Candelario Santana Work Phone: [facility] Work Phone: Start: 03-17-2023 End: 03-17-[address] Candelario Santana Work Phone: [facility] Start: 12-21-2022 End: 12-21-[address] Candelario Santana Work Phone: [facility] Work Phone: Start: 12-21-2022 End: 12-21-[address] Candelario Santana Work Phone: [facility] Start: 12-16-2022 End: 12-16-[address] Candelario Santana Work Phone: [facility] Work Phone: Start: 12-16-2022 End: 12-16-[address] Candelario Santana Work Phone: [facility] Fl[facility] Start: 12-09-2022 End: 12-09-[address] Candelario Santana Work Phone: [facility] Start: 11-24-2022 Non-patient / Non-visit Dr. Candelario Santana Work Phone: [facility] Start: 11-24-2022 End: 11-24-2022 Non-patient / Non-visit Dr. Candelario Santana Work Phone: [facility] Start: 11-24-2022 End: 11-24-2022 Admission to same day surgery center Dr. Canedlario Santana Work Phone: [facility] Start: 11-24-2022 End: 11-24-[address] Candelario Santana Work Phone: [facility] Work Phone: Start: 09-16-2022 End: 09-16-[address] Candelario Santana Work Phone: [facility] Work Phone: Start: 09-16-2022 End: 09-16-[address] Candelario Santana Work Phone: [facility] Fl[facility] Start: 09-10-2022 End: 09-10-[address] Candelario Santana Work Phone: [facility] Start: 07-08-2022 End: 07-08-[address] Candelario Santana Work Phone: [facility] Work Phone: Start: 07-08-2022 End: 07-08-[address] Candelario Santana Work Phone: [facility] Fl[facility] Start: 06-18-2022 End: 06-18-[address] Candelario Santana Work Phone: [facility] Start: 05-25-2022 End: 05-25-[address] Candelario Santana Work Phone: [facility] Work Phone: Start: 05-25-2022 End: 05-25-[address] Candelario Santana Work Phone: [facility] Fl[facility] Start: 04-09-2022 End: 04-09-[address] Candelario Santana Work Phone: [facility] Work Phone: Start: 04-09-2022 End: 04-09-[address] Candelario Santana Work Phone: [facility] 3[facility] Fl[facility] Start: 03-21-2022 Non-patient / Non-visit Dr. Candelario Santana Work Phone: [facility] Start: 03-20-2022 Non-patient / Non-visit Dr. Candelario Santana Work Phone: [facility] Start: 03-20-2022 End: 03-21-2022 Evaluation and management of inpatient Dr. Candelario Santana Work Phone: [facility] Start: 03-20-2022 Non-patient / Non-visit Dr. Candelario Santana Work Phone: [facility] Start: 12-22-2021 End: 12-22-2021 Patient encounter [facility] 3[facility] Fl[facility] Start: 12-15-2021 End: 12-15-2021 Patient encounter procedure [facility] 3[facility] Fl[facility] Start: 09-24-2021 End: 09-24-2021 Patient encounter procedure [facility] Fl[facility] Start: 09-15-2021 End: 09-15-2021 Patient encounter procedure [facility] Fl[facility] Start: 03-05-2017 Ambulatory Joe Hein [facility] Start: 02-18-2017 End: 02-19-2017 Ambulatory CARYN WO ID REFERRING Facility:[facility] Start: 02-13-2017 Emergency department patient visit Abhay Ferreira [facility] Procedures Date Procedure Procedure Detail Performing Clinician [...] Work Phone: Comment on above: Performed at: [address] [id number] Director: Danielito العلي PhD, Phone: [phone] Start: 02-16-2025 Vitamin D, 25-hydroxy measurement Dr. [...] of pelvis Pelvis 1 or 2 Views [facility] Start: 03-29-2025 XR Pelvis 1 or 2 Views [facility] Start: 03-29-2025 Plain X-ray of hip Hip uni 4+ views with Pelvis [facility] Start: 03-29-2025 XR Hip Views [facility] Start: 03-29-2025 Plain X-ray of femur Femur Min 2 Views [facility] Start: 03-29-2025 XR Femur 2 Views [facility] Start: 03-18-2025 [facility] Start: 03-09-2025 Patient discharge [facility] Start: 03-02-2025 [facility] [facility] Start: 02-23-2025 Introduction of urinary catheter [facility] Start: 02-22-2025 Speech therapy assessment [facility] Start: 02-21-2025 End: 02-22-2025 Patient referral to dietitian [facility] Start: 02-21-2025 Following clinical pathway protocol [facility] Start: 02-21-2025 Recommendation to continue with treatment [facility] Start: 02-21-2025 Implementation of planned interventions [facility] Start: 02-21-2025 Referral to service [facility] Start: 02-21-2025 Urinary bladder training [facility] Start: 02-21-2025 Admission procedure [facility] Start: 02-21-2025 Measuring intake and output [facility] Start: 02-21-2025 Referral to occupational therapist [facility] Start: 02-21-2025 Vital signs measurements [facility] Start: 02-21-2025 End: 02-21-2025 [facility] Start: 02-21-2025 Patient discharge [facility] Start: 02-21-2025 Application of device [facility] Start: 02-17-2025 End: 02-17-2025 [facility] Start: 02-17-2025 Ambulation therapy management [facility] Start: 02-17-2025 Application of device [facility] Start: 02-17-2025 Exercises [facility] Start: 02-17-2025 Following clinical pathway protocol [facility] Start: 02-17-2025 Introduction of urinary catheter [facility] Start: 02-17-2025 Neurovascular assessment [facility] Start: 02-17-2025 Patient education [facility] Start: 02-17-2025 Provision of activity privileges [facility] Start: 02-17-2025 Referral to occupational therapist [facility] Start: 02-17-2025 Referral to service [facility] Start: 02-17-2025 Vital signs measurements [facility] Start: 02-17-2025 Wound care [facility] Start: 02-17-2025 Ambulation therapy management [facility] Start: 02-16-2025 Administration of blood product [facility] Start: 02-16-2025 [facility] Start: 02-16-2025 Open reduction of fracture of femur with internal fixation ORIF, Hip, Gamma Nail (Left) [facility] Start: 02-15-2025 Application of intermittent pneumatic compression device [facility] Start: 02-15-2025 Following clinical pathway protocol [facility] Start: 02-15-2025 Assessment of risk of venous thromboembolism [facility] Start: 02-15-2025 Care regimes management [facility] Start: 02-15-2025 Consultation [facility] Start: 02-15-2025 Inhalation therapy procedure [facility] Start: 02-15-2025 Insertion of catheter into peripheral vein [facility] Start: 02-15-2025 Notification of physician [facility] Start: 02-15-2025 Providing care according to standard [facility] Start: 02-15-2025 Referral to occupational therapist [facility] Start: 02-15-2025 Referral to service [facility] Start: 02-15-2025 End: 02-15-2025 [facility] Start: 02-15-2025 Verification routine [facility] Start: 02-15-2025 Admission procedure [facility] Start: 02-15-2025 Hospital admission, emergency, from emergency room, medical nature [facility] Start: 02-15-2025 [facility] Start: 02-15-2025 Patient referral to dietitian [facility] Start: 11-24-2022 Anesthesia upper gi endoscopic px ercp ANES UPR GI NDSC PX ERCP [facility] Start: 11-24-2022 Ercp remove calculi/debris biliary/pancreas duct ERCP REMOVE DUCT CALCULI [facility] Start: 11-24-2022 Ercp remove foreign body/stent biliary/panc duct ERCP REMOVE FORGN BODY DUCT [facility] Start: 11-24-2022 Ercp w/sphincterotomy/papillotomy ENDO CHOLANGIOPANCREATOGRAPH [facility] Start: 11-24-2022 Endoscopic retrograde cholangiopancreatography ERCP Biliary/Pancreas [facility] Start: 11-24-2022 RF Guidance for endoscopy of Biliary ducts and Pancreatic duct-- W contrast retrograde [facility] Start: 11-24-2022 Patient discharge [facility] Start: 03-21-2022 Patient discharge [facility] Work Phone: Start: 03-20-2022 Application of intermittent pneumatic compression device [facility] Work Phone: Start: 03-20-2022 Catheterization of vein [facility] Work Phone: Start: 03-20-2022 Following clinical pathway protocol [facility] Work Phone: Start: 03-20-2022 Assessment of risk of venous thromboembolism [facility] Work Phone: Start: 03-20-2022 Care regimes management [facility] Work Phone: Start: 03-20-2022 Fall prevention [facility] Work Phone: Start: 03-20-2022 Incentive spirometry [facility] Work Phone: Start: 03-20-2022 Inhalation therapy procedure [facility] Work Phone: Start: 03-20-2022 Insertion of catheter into peripheral vein [facility] Work Phone: Start: 03-20-2022 Introduction of urinary catheter [facility] Work Phone: Start: 03-20-2022 Measuring intake and output [facility] Work Phone: Start: 03-20-2022 Oxygen therapy [facility] Work Phone: Start: 03-20-2022 Providing care according to standard [facility] Work Phone: Start: 03-20-2022 Provision of activity privileges [facility] Work Phone: Start: 03-20-2022 Referral to gastroenterology service [facility] Work Phone: Start: 03-20-2022 Referral to service [facility] Work Phone: Start: 03-20-2022 [facility] Work Phone: Start: 03-20-2022 Verification routine [facility] Work Phone: Start: 03-20-2022 Admission procedure [facility] Work Phone: Start: 03-20-2022 [facility] Work Phone: Start: 03-20-2022 Patient referral to dietitian [facility] Work Phone: Bacteria identified in Urine by Culture Urine Culture [facility] Work Phone: Cardiac event recording [facility] DXA Bone [Mass/Area] Bone density [facility] Patient Education ED Head Injury (Adult) [facility] Work Phone: Patient referral [facility] Work Phone: [facility] Work Phone: Immunizations Immunization Date Immunization Notes Care Provider [facility] 09-15-2021 influenza, injectabl e, quadrivalent, preservative free Dr. Candelario Santana MD Work Phone: [facility] 05-27-2020 influenza, injectabl e, quadrivalent, preservative free Dr. Candelario Santana MD Work Phone: [facility] 05-05-2017 influenza, injectabl e, quadrivalent, preservative free Dr. Candelario Santana MD Work Phone: [facility] 04-29-2016 influenza, injectabl e, quadrivalent, preservative free Dr. Candelario Santana MD Work Phone: [facility] 06-23-2012 influenza, seasonal, injectable, preservative free Dr. Candelario Santana MD Work Phone: [facility] Payers Date Payer Category Payer Medicare [id number] 2024 Self-pay [id number] Private Health Insurance Unknown [id number] 2.16.8 40.1.818382.3.579.2.462 Unknown [id number] 2.16.8 40.1.953653.3.579.2.462 Unknown [id number] 2.16.8 40.1.802798.3.579.2.462 Unknown [id number] 2.16.8 40.1.233648.3.579.2.462 Unknown [id number] 2.16.8 40.1.765206.3.579.2.462 Unknown [id number] 2.16.8 40.1.729321.3.579.2.462 Unknown [id number] 2.16.8 40.1.411374.3.579.2.462 Unknown [id number] 2.16.8 40.1.796231.3.579.2.462 Unknown [id number] 2.16.8 40.1.880049.3.579.2.462 Unknown [id number] 2.16.8 40.1.716519.3.579.2.462 Unknown [id number] 2.16.8 40.1.768561.3.579.2.462 Unknown [id number] 2.16.8 40.1.377749.3.579.2.462 Unknown [id number] 2.16.8 40.1.285193.3.579.2.462 Unknown [id number] 2.16.8 40.1.889524.3.579.2.462 Unknown [id number] 2.16.8 40.1.774293.3.579.2.462 Unknown [id number] 2.16.8 40.1.695071.3.579.2.462 Unknown [id number] 2.16.8 40.1.305400.3.579.2.462 Unknown [id number] 2.16.8 40.1.595137.3.579.2.462 Unknown [id number] 2.16.8 40.1.555890.3.579.2.462 Unknown [id number] 2.16.8 40.1.851310.3.579.2.462 Unknown [id number] 2.16.8 40.1.620975.3.579.2.462 Unknown [id number] 2.16.8 40.1.055560.3.579.2.462 Unknown [id number] 2.16.8 40.1.166383.3.579.2.462 Unknown [id number] 2.16.8 40.1.081674.3.579.2.462 Unknown [id number] 2.16.8 40.1.894881.3.579.2.462 Unknown [id number] 2.16.8 40.1.628583.3.579.2.462 Unknown [id number] 2.16.8 40.1.892707.3.579.2.462 Unknown [id number] 2.16.8 40.1.566495.3.579.2.462 Unknown [id number] 2.16.8 40.1.007583.3.579.2.462 Unknown [id number] 2.16.8 40.1.255108.3.579.2.462 Unknown [id number] 2.16.8 40.1.888762.3.579.2.462 Unknown [id number] 2.16.8 40.1.344054.3.579.2.462 Unknown [id number] 2.16.8 40.1.233477.3.579.2.462 Unknown [id number] 2.16.8 40.1.033436.3.579.2.462 Unknown [id number] 2.16.8 40.1.925060.3.579.2.462 Unknown [id number] 2.16.8 40.1.726843.3.579.2.462 Unknown [id number] 2.16.8 40.1.143592.3.579.2.462 Unknown [id number] 2.16.8 40.1.273210.3.579.2.462 Unknown [id number] 2.16.8 40.1.815108.3.579.2.462 Unknown [id number] 2.16.8 40.1.047799.3.579.2.462 Unknown [id number] 2.16.8 40.1.024330.3.579.2.462 Unknown [id number] 2.16.8 40.1.481841.3.579.2.462 Unknown [id number] 2.16.8 40.1.106459.3.579.2.462 Social History Date Type Detail Facility Start: 10-22-2020 End: 12-09-2022 Tobacco smoking status NHIS Unknown if ever smoked [facility] Start: 02-13-2017 None [facility] Start: 10-22-2020 Non-smoker [facility] Start: 1945 Sex Assigned At Female [facility] Start: 12-09-2022 End: 03-18-2025 Tobacco smoking status NHIS Never smoked tobacco (finding) [facility] NEGATED: Highlighted row [facility] Medical Equipment Procedure Code Equipment Code Equipment Origin al Text Equipment Identifier Dates ORIF, hip, using Gamma nail ([id number]) Orthopaedic bone screw, non-bioabsorbable, sterile ()[id number] FDA Start: 02-16-2025 ORIF, hip, using Gamma nail ([id number]) Orthopaedic bone screw, non-bioabsorbable, sterile ()[id number] 1D4 FDA Start: 02-16-2025 ORIF, hip, using Gamma nail Femur intramedullary nail ()[id number] F32 FDA Start: 02-16-2025 ORIF, hip, using Gamma nail Orthopaedic bone screw (non-sliding) ()[id number] 1C8 FDA Start: 02-16-2025 ERCP (endoscopic retrograde [...] Activity Abili ty With Assist of 2 [facility] Work Phone: 03-09-2025 Functional status Ambulates;Bathroom Priv ilege [facility] Work Phone: 02-21-2025 Functional status Ambulates;Bedr est;Bathroom Privilege [facility] Work Phone: 03-21-2022 Functional status Ambulates [facility] Work Phone: Mental Status Date Assessment Result Facility 03-09-2025 Cognitive function Voice/Name [facility] Work Phone: 02-21-2025 Cognitive function Voice/Name [facility] Work Phone: 11-24-2022 Cognitive function Voice/Name [facility] Work Phone: 11-24-2022 Cognitive function Patient Ren ramirez Person;Place;Time [facility] Work Phone: 03-21-2022 Cognitive function Appropriate;Cooperativ e [facility] Work Phone: 03-20-2022 Cognitive function Awake;Alert;A ppropriate;Follo ws Commands [facility] Work Phone: Clinical Notes 11-24-2022 to 07-03-2025 Note Date & Type Note Facility 07-03-2025 Note [facility] 03-18-2025 Discharge summary Note Date/Time March 18, 2025 11:39am [facility] Medical Records Department [address] [place] [address] Emergency Department Summary 03/18/25 MR#: [id number] Acct: [id number] Name: SHASHI OSWALD Rep #:[id number] : 1945 79 From: Cj Ordonez MD [...] is a 79-year-old woman. She presents from [facility]. She has history of Parkinson disease [...] similar symptoms: Yes Recent Illness/Hospitalization: No PFSH PFS Medical History Cognitive dysfunction History of hemorrhoids [...] bisacodyl 10 mg rectal suppository 10 mg IN X1 PRN Con stipation #1 ea 03/08/25 [...] IMPRESSION: No acute intracranial abnormalities. Reading [facility] C-minus of the head reveals no evidence of fracture, subdural hematoma, epiduralhematoma, subarachnoid hemorrhage or traumatic contusion. There is no fluid noted in the sinuses per awaiting formal read by radiologist, 1103. The CT report was reviewed at 1137. Plan is to discharge back to [facility]. Discharge Plan Triage Chief Complaint: Fall ED Provider: Cj Ordonez Dx/Rx/DC Orders Clinical Impression: CHI (closed head injury), Debility, Anticoagulant long-term use, Injury due to fall, [place] coma scale score 13-15, at arrival to [...] 0RF bisacodyl 10 mg Suppository 10 mg IN X1 PRN (Reason: Constipation) Qty: 1 0RF [...] next 3 doses of Eliquis Print Language: Emirati Disposition Disposition: Home, Self Care What to do if you have Problems For any increased pain, shortness of breath, bleeding, nausea or vomiting, chestpain, or any unexpected problems, contact your Primary Care Provider. Call [facility] ([phone]) or report to the closest Emergency Room. Call 911 if necessary. 03/18/25 1139 <Electronically signed by Cj Ordonez MD> Cosigner Signature (if applicable): CC: Dr. Candelario Santana MD ~ Signed [facility] Work Phone: 1(942) 895-117407-27-2025 Discharge summary [facility] Medical Records Department [address] [place] [address] Emergency Department Summary 03/18/25 MR#: [id number] Acct: [id number] Name: SHASHI OSWALD Rep #:[id number] : 1945 79 From: Cj Ordonez MD [...] is a 79-year-old woman. She presents from [facility]. She has history of Parkinson disease [...] Prior similar symptoms: Yes Recent Illness/Hospitalization: No [facility] Medical History Cognitive dysfunction History [...] bisacodyl 10 mg rectal suppository 10 mg IN X1 PRN Con stipation #1 ea 03/08/25 [...] oriented x3 and CN's II-XII intact bilaterally [place] Coma Scale: document GCS findings Spontaneous Obeys [...] IMPRESSION: No acute intracranial abnormalities. Reading Location[facility] C-minus of the head reveals no evidence of fracture, subdural hematoma, epiduralhematoma, subarachnoid hemorrhage or traumatic contusion. There is no fluid noted in the sinuses per awaiting formal read by radiologist, 1103. The CT report was reviewed at 1137. Plan is to discharge back to [facility]. Discharge Plan Triage Chief Complaint: Fall ED Provider: Cj Ordonez Dx/Rx/DC Orders Clinical Impression: CHI (closed head injury), Debility, Anticoagulant long-term use, Injury due to fall, [place] coma scale score 13-15, at arrival to [...] 0RF bisacodyl 10 mg Suppository 10 mg IN X1 PRN (Reason: Constipation) Qty: 1 0RF [...] next 3 doses of Eliquis Print Language: Emirati Disposition Disposition: Home, Self Care What to do if you have Problems For any increased pain, shortness of breath, bleeding, nausea or vomiting, chestpain, or any unexpected problems, contact your Primary Care Provider. Call [facility] ([phone]) or report tothe closest Emergency Room. Call 911 if necessary. 03/18/25 1132 Cosigner Signature (if applicable): CC: Dr. Candelario Santana MD ~ Signed [facility]07-27-2025 Radiology Diagnostic study note [facility] Imaging Services [address] [place], [place] [address] Brain/Head without Contrast MR#: [id number] Acct: [id number] Name: SHASHI OSWALD Rep #: [id number] : 1945 F 79 From: Cody Kim MD PCP: Dr. Candelario Santana MD Status: REG E R Study:Brain/Head without Contrast Date of Exa m: 03/18/25 Exam# [id number] Ordering Dr: Wiliam Ordonez MD PROCEDURE: BRAIN/HEAD [...] IMPRESSION: No acute intracranial abnormalities. Reading Location[facility] CC: Dr. Candelario Santana MD; Dr. Cj Ordonez MD ~ Pelletizer: Signed [facility]07-18-2025 Discharge summary Author Katie Bah [facility] Note Date/Time March 09, 2025 11:0 3am [facility] Medical Records Department [address] [place] [address] Discharge Summary 03/08/25 1657 MR#: [id number] Acct: [id number] Name: SHASHI OSWALD Rep #:[id number] : 1945 79 From: Katie Bah PCP: Dr. Candelario Santana MD Status:ADM I N Location: [place] [address] Providers Date of Admission: 02/21/25 Date of [...] status: with other specified complication Diabetes mellitus buttermaker continuous churn insulin use: without penitentiary use Qualified Code(s): E11.69 - Type 2 [...] Recommend she follow up with neurology at [facility] from rehab. (10) Cognitive dysfunction: Status: Chronic [...] week. Will recommend an event monitor at [facility]. (16) Orthostatic hypotension: Status: Chronic Code(s): I95.1 [...] from in rehab. Plan 1. DC to [facility] on 03/09 for additional therapy - may need LT placement 2. Event monitor at [facility]. 3. DEXA in the near future. 4. [...] bisacodyl 10 mg rectal suppository 10 mg IN X1 PRN Constipation #1 ea 03/08/25 calcium [...] who presented to the emergency department at [facility] on 02/15/2025 complaining of left hip pain [...] to the acute inpt rehab unit at [facility] on 02/21/25 for 3 hours of [...] put in for an event monitor at [facility]. We discovered that there is a big [...] transfer. Shashi was discharged on 03/09/25 to [facility] for additional therapy. A Follow-up appointment has been made with Dr. Chacon from orthopedics and she will also need to follow up with PCP (Dr. Santana) following [facility]. We have tried to get an appt [...] 0RF bisacodyl 10 mg Suppository 10 mg IN X1 PRN (Reason: Constipation) Qty: 1 0RF [...] Recorder Preventi (Urgent) Timeframe: 3 Days Location: [facility] Ordered By: Dr. Katie Bah Referrals / Follow Up: Matt Chacon MD [Med Staff - Active Staff] - 03/22/25 3:30 pm Shon Lozada MD [Non-Staff -Ordering Privileges] - Disposition Disposition (needs filled in before D/C Order can be placed): [facility] Charges/Coding Visit Charges Inpatient E&M: 75876 Disch Hosp >30min 03/09/25 1103 <Electronically signed by Katie Bah DO> Cosigner Signature (if applicable): CC: Dr. Matt Chacon MD; Dr. Katie Bah DO; Dr. Shon Lozada MD; Dr. Candelario Santana MD~ Signed [facility] Work Phone: 1(713) 127-936507-18-2025 Discharge summary [facility] Medical Records Department [address] [place] [address] Discharge Summary 03/08/25 1657 MR#: [id number] Acct: [id number] Name: SHASHI OSWALD Rep #:[id number] : 1945 79 From: Katie Bah DO PCP: Dr. Candelario Santana MD Status:ADM I N Location: [place] [address] Providers Date of Admission: 02/21/25 Date of [...] status: with other specified complication Diabetes mellitus buttermaker continuous churn insulin use: without buttermaker continuous churn use Qualified Code(s): E11.69 - Type 2 [...] Recommend she follow up with neurology at [facility] from [facility]hab. (10) Cognitive dysfunction: Status: Chronic [...] week. Will recommend an event monitor at [facility]. (16) Orthostatic hypotension: Status: Chronic Code(s): I95.1 [...] from in rehab. Plan 1. DC to [facility] on 03/09 for additional therapy - may need LT placement 2. Event monitor at [facility]. 3. DEXA in the near future. 4. [...] date is 03/22/25. 10. Follow-up with Dr. aMtt Chacon, orthopedics, postdischarge from rehab. 11. She [...] bisacodyl 10 mg rectal suppository 10 mg IN X1 PRN Constipation #1 ea 03/08/25 calcium [...] who presented to the emergency department at [facility] on 02/15/2025 complaining of left hip pain [...] to the acute inpt rehab unit at [facility] on 02/21/25 for 3 hours of therapydaily to restore function/independence at or near her level prior to the fall. Shashi has made steady progress while on rehab. Recovery is complicated by poor cognitive function. BS's were elevated at admission to rehab. She was started on GLucophage and the BS's are well controlled on GLucophage 750 mg Q AMat [facility]. No BS's > 180 and no hypoglycemia. [...] put in for an event monitor at [facility]. We discovered that there is a big [...] She requires moderate assistance with tub/shower transfer. hSashi was discharged on 03/09/25 to [facility] for additional therapy. A Follow-up appointment has been made with Dr. Chacon from orthopedics and she will also need to follow up with PCP (Dr. Santana) following [facility]. We have tried to get an appt for her to follow up with Dr. Lozada from neurology for dementia and Parkinson's disease (vs Parkinsonism) but, at the time of DC we have not received a call back form the office. Shsahi is very pleasant and appropriate. She is [...] 0RF bisacodyl 10 mg Suppository 10 mg IN X1 PRN (Reason: Constipation) Qty: 1 0RF [...] Recorder Preventi (Urgent) Timeframe: 3 Days Location: [facility] Ordered By: Dr. Katie Bah Referrals / Follow Up: Matt Chacon MD [Med Staff - Active Staff] - 03/22/25 3:30 pm Shon Lozada MD [Non-Staff -Ordering Privileges] - Disposition Disposition (needs filled in before D/C Order can be placed): [facility] Charges/Coding Visit Charges Inpatient E&M: 03546 Disch Hosp >30min 03/09/25 1103 Cosigner Signature (if applicable): CC: Dr. Matt Chacon MD; Dr. Katie Bah DO; Dr. Shon Lozada MD; Dr. Candelario Santana MD~ Signed [facility]07-17-2025 Discharge summary Author Katie Bah [facility] Note Date/Time March 08, 2025 4:57 pm [facility] Medical Records Department [address] [place] [address] Transfer to [facility] MR#: [id number] Acct: [id number] Name: SHASHI OSWALD Rep #:[id number] : 1945 79 From: Katie Bah DO PCP: Dr. Candelario Santana MD Status:ADM I N Certification of patient admission REQUIRED AT TIME OF ADMISSION. I CERTIFY THAT POST-HOSPITAL ECF SERVICES ARE REQUIRED TO BE GIVEN ON AN IN-PATIENT BASIS BECAUSE OF THE ABOVE NAMED PATIENT'S NEED FOR FDC CARE ON A CONTINUING BASIS FOR THE CONDITION(S) FOR WHICH HE/SHE WAS RECEIVING IN-PATIENT HOSPITAL SERVICES PRIOR TO HIS/HER TRANSFER TO THE [facility]. 03/08/251656<Electronically signed by Katie Bah DO> Diet Diet [...] Recommend she follow up with neurology at [facility] from rehab. Comment: Diagnosed by Dr. Santana [...] week. Will recommend an event monitor at [facility]. (16) Orthostatic hypotension: Status: Chronic Code(s): I95.1 [...] an outpatient DEXA Plan 1. DC to [facility] on 03/09 for additional therapy - [...] 0RF bisacodyl 10 mg Suppository 10 mg IN X1 PRN (Reason: Constipation) Qty: 1 0RF [...] Recorder Preventi (Urgent) Timeframe: 3 Days Location: [facility] Ordered By: Dr. Katie Bah Referrals / Follow Up: Matt Chacon MD [Med Staff - Active Staff] - 03/22/25 3:30 pm Shon Lozada MD [Non-Staff -Ordering Privileges] - Disposition Disposition (needs filled in before D/C Order can be placed): [facility] Facility (2) Intertrochanteric fracture of left femur [...] status: with other specified complication Diabetes mellitus penitentiary insulin use: without penitentiary use Qualified Code(s): E11.69 - Type 2 [...] Age-related osteoporosis without current pathological fracture 03/08/25 0757 <Electronically signed by Katie Bah DO> Cosigner Signature (if applicable): CC: Dr. Matt Chacon MD; Dr. Shon Lozada MD; Dr. Candelario Santana MD ~ [facility] Work Phone: 1(646) 488-340007-17-2025 Discharge summary [facility] Medical Records Department [address] [place] [address] Transfer to [facility] MR#: [id number] Acct: [id number] Name: SHASHI OSWALD Rep #:[id number] : 1945 79 From: Katie Bah DO PCP: Dr. Candelario Santana MD Status:ADM I N Certification of patient admission REQUIRED AT TIME OF ADMISSION. I CERTIFY THAT POST-HOSPITAL F SERVICES ARE REQUIRED TO BE GIVEN ON AN IN-PATIENT BASIS BECAUSE OF THE ABOVE NAMED PATIENT'S NEED FOR FDC CARE ON A CONTINUING BASIS FOR THE CONDITION(S) FOR WHICH HE/SHE WAS RECEIVING IN-PATIENT HOSPITAL SERVICES PRIOR TO HIS/HER TRANSFER TO THE [facility]. 03/08/25 1657 Diet Diet Order/Speech Therapy: INPATIENT Hospital Diet [...] Recommend she follow up with neurology [place] from [place]hab. Comment: Diagnosed by Dr. Santana [...] week. Will recommend an event monitor at [place]. (16) Orthostatic hypotension: Status: Chronic Code(s): I95.1 [...] an outpatient DEXA Plan 1. DC to [facility] on 03/09 for additional therapy - may need LT placement 2. Event monitor at [place]. 3. DEXA in the near future. 4. [...] 0RF bisacodyl 10 mg Suppository 10 mg IN X1 PRN (Reason: Constipation) Qty: 1 0RF [...] Recorder Preventi (Urgent) Timeframe: 3 Days Location: [facility] Ordered By: Dr. Katie Bah Referrals / Follow Up: Matt Chacon MD [Med Staff - Active Staff] - 03/22/25 3:30 pm Shon Lozada MD [Non-Staff -Ordering Privileges] - Disposition Disposition (needs filled in before D/C Order can be placed): [facility] (2) Intertrochanteric fracture of left femur [...] status: with other specified complication Diabetes mellitus buttermaker continuous churn insulin use: without buttermaker continuous churn use Qualified Code(s): E11.69 - Type 2 [...] Age-related osteoporosis without current pathological fracture 03/08/25 8611 Cosigner Signature (if applicable): CC: Dr. Matt Chacon MD; Dr. Shon Lozada MD; Dr. Candelario Santana MD ~ [facility]07-17-2025 [facility]07-15-2025 Progress note Author Katie Bah [facility] Note Date/Time March 06, 2025 4:11 pm [facility] Medical Records Department [address] [place] [address] Progress Note 03/06/25 1150 MR#: [id number] Acct: [id number] Name: SHASHI OSWALD Rep #:[id number] : 1945 79 From: Katie Nash Olvin DELEON PCP: Dr. Candelario Santana MD Status:ADM I N Location: [place] [address] Subjective Subjective Afebrile VSS -mild systolic hypertension. [...] status: with other specified complication Diabetes mellitus buttermaker continuous churn insulin use: without buttermaker continuous churn use Qualified Code(s): E11.69 - Type 2 [...] therapy 2. Plan discharge for Wednesday to penitentiary 3. Hold Procardia if the systolic is less than 110 4. Continue metoprolol 25 mg twice daily in light of paroxysmal atrial fibrillation while on rehab. Plan event monitor at discharge. Encouraged her to increase her fluid intake today. Charges/Coding Visit Charges Inpatient E&M: 94475 Subs Hosp L1 03/06/25 1611 <Electronically signed by Katie Bah DO> Katie Bah DO Cosigner Signature (if applicable): CC: ~ Signed [facility] Work Phone: 1(800) 422-444007-15-2025 Progress note [facility] Medical Records Department [address] [place] [address] Progress Note 03/06/25 1150 MR#: [id number] Acct: [id number] Name: SHASHI OSWALD Rep #:[id number] : 1945 79 From: Katie Bah DO PCP: Dr. Candelario Santana MD Status:ADM I N Location: [place] [address] Subjective Subjective Afebrile VSS -mild systolic hypertension. [...] status: with other specified complication Diabetes mellitus penitentiary insulin use: without buttermaker continuous churn use Qualified Code(s): E11.69 - Type 2 [...] therapy 2. Plan discharge for Wednesday to penitentiary 3. Hold Procardia if the systolic is less than 110 4. Continue metoprolol 25 mg twice daily in light of paroxysmal atrial fibrillation while on rehab.Plan event monitor at discharge. Encouraged her to increase her fluid intake today. Charges/Coding Visit Charges Inpatient E&M: 95463 [facility] Hosp 03/06/25 1611 Katie Bravoigner Signature (if applicable): CC: ~ Signed [facility]07-14-2025 Progress note Author Katie [facility] Note Date/Time March 05, 2025 2:59 pm [facility] Medical Records Department [address] [place] [address] Progress Note 03/05/25 1138 MR#: [id number] Acct: [id number] Name: SHASHI OSWALD Rep #:[id number] : 1945 79 From: Katie Bah DO PCP: Dr. Candelario Santana MD Status:ADM I N Location: [place] [address] Subjective Subjective Shashi was seen on team [...] status: with other specified complication Diabetes mellitus penitentiary insulin use: without buttermaker continuous churn use Qualified Code(s): E11.69 - Type 2 [...] a holtor monitor or event monitor at [place]. PLAN: Plan 1. Continue therapy 2. Increase the tramadol to 3 times daily at 7 AM, 2 PM and 9 PM. Continue acetaminophen and the arthritis compounded cream to the knee. 3. Continue to monitor the blood pressure. It seems to be improving with the addition of nicardipine to her drug regimen. 4. Plan is for penitentiary at discharge as Ash does not feel he can adequately care for her at home at this point. The patient agrees with this andis willing to go to a penitentiary facility. 5. Will need a TSH and T4 in 6 weeks. 6. Recommend follow-up with neurology for cognitive impairment. Charges/Coding Visit Charges Inpatient E&M: 43181 Subs Hosp L2 03/05/25 5543 <Electronically signed by Katie Bah DO> Katie Chen Signature (if applicable): CC: ~ Signed [facility] Work Phone: 1(229) 408-560507-14-2025 Progress note Author Jo Vizcarra [facility] Note Date/Time March 05, 2025 1:25 pm [facility] Medical Records Department [address] [place] [address] [place] [address] Progress Note - Orthopedic 03/05/25 1318 MR#: [id number] Acct: [id number] Name: SHASHI OSWALD Rep #:[id number] : 1945 79 From: Jo HADLEY PCP: Dr. Candelario Santana MD Status:ADM I N Location: [place] [address] Subjective Subjective Postop 2 weeks status post left hip long gamma nail for IT plus subtrochanteric fracture. Patient was seen today in the rehab unit. Patient was working with physical therapy upon entry. Patient continues to do well with very minimal pain. Therapy reports that she is walking approximately 20 feet at a time. Section were removed last week. Patient says that [...] Cosigner Signature (if applicable): CC: ~ Signed [facility] Work Phone: 1(973) 514-112007-14-2025 Progress note [facility] Medical Records Department [address] [place] [address] Progress Note 03/05/25 1138 MR#: [id number] Acct: [id number] Name: SHASHI OSWALD Rep #:[id number] : 1945 79 From: Katie Bah DO PCP: Dr. Candelario Santana MD Status:ADM I N Location: [place] [address] Subjective Subjective Shashi was seen on team [...] status: with other specified complication Diabetes mellitus buttermaker continuous churn insulin use: without buttermaker continuous churn use Qualified Code(s): E11.69 - Type 2 [...] needa holtor monitor or event monitor at [place]. PLAN: Plan 1. Continue therapy 2. Increase the tramadol to 3 times daily at 7 AM, 2 PM and 9 PM. Continue acetaminophen and the arthritis compounded cream to the knee. 3. Continue to monitor the blood pressure. It seems to be improving with the addition of nicardipine to her drug regimen. 4. Plan is for penitentiary at discharge as Ash does not feel he can adequately care for her athome at this point. The patient agrees with this andis willing to go to a penitentiary facility. 5. Will need a TSH and T4 in 6 weeks. 6. Recommend follow-up with neurology for cognitive impairment. Charges/Coding Visit Charges Inpatient E&M: 83364 Subs Hosp L2 03/05/25 9654 Katie Bah DO Cosigner Signature (if applicable): CC: ~ Signed [facility]07-14-2025 Progress note [facility] Medical Records Department [address] [place] [address] Progress Note - Orthopedic 03/05/25 1318 MR#: [id number] Acct: [id number] Name: SHASHI OSWALD Rep #:[id number] : 1945 79 From: Jo HADLEY PCP: Dr. Candelario Santana MD Status:ADM I N Location: [place] [address]-1 Subjective Subjective Postop 2 weeks status post [...] Cosigner Signature (if applicable): CC: ~ Signed [facility]07-11-2025 Radiology Diagnostic study note [facility] Imaging Services [address] [place] [id number] Femur Min 2 Views MR#: [id number] Acct: [id number] Name: SHASHI OSWALD Rep #: [id number] : 1945 79 From: Nicholas Hope MD PCP: Dr. Candelario Santana MD Status: ADM I N Study:Femur Min 2 Views Date of Exam: Exam# [id number] Ordering Dr: Ronal Chcaon MD PROCEDURE: FEMUR MIN 2 VIEWS 03/02/2025 REASON FOR EXAM: STATUS POST LONG GAMMA NAIL TECHNIQUE: FEMUR MIN 2 VIEWS COMPARISON: None. FINDINGS: Left femoral internal fixation spanning a left proximal femoral fracture. No evidence of acute complication. RAD/Femur Min 2 Views IMPRESSION: Intact left femoral internal fixation. Reading Location: [id number] CC: Dr. Matt Chacon MD; Dr. Candelario Santana MD ~ Pelletizer: Signed [facility]07-11-2025 Radiology Diagnostic study note [facility] Imaging Services [address] [place], [place] [id number] Pelvis 1 or 2 Views MR#: [id number] Acct: [id number] Name: SHASHI OSWALD Rep #: [id number] : 1945 F 79 From: Nicholas Hope MD PCP: Dr. Candelario Santana MD Status: ADM I N Study:Pelvis 1 or 2 Views Date of Exam: 03/02/25 Exam# [id number] Ordering Dr: Ronal Chacon MD PROCEDURE: PELVIS [...] IMPRESSION: Left femoral internal fixation. Reading Location: [id number] CC: Dr. Matt Chacon MD; Dr. Candelario Santana MD ~ Pelletizer: Signed [facility]07-10-2025 Progress note Author Katie Bah [facility] Note Date/Time March 01, 2025 5:02 pm [facility] Medical Records Department [address] [place] [address] Progress Note 03/01/25 1033 MR#: [id number] Acct: [id number] Name: SHASHI OSWALD Rep #:[id number] : 1945 79 From: Katie ArjunSimona Bah DO PCP: Dr. Candelario Santana MD Status:ADM I N Location: [place] [address] Subjective Subjective Afebrile. The blood pressure over [...] status: with other specified complication Diabetes mellitus buttermaker continuous churn insulin use: without buttermaker continuous churn use Qualified Code(s): E11.69 - Type 2 [...] extremity today. Charges/Coding Visit Charges Inpatient E&M: 87411 Subs Hosp L1 03/01/25 1143 <Electronically signed by Katie Bah DO> Katie Bah DO Cosigner Signature (if applicable): CC: ~ Signed ADDENDUM by Dr. Katie Bah DO on 03/01/25 at 1702 Addendum Venous ultrasound of the left lower extremity shows deep veins to be patent and compressible segmentally. 03/01/25 1702 <Electronically signed by Katie partida DO> Date _ Katie Bah DO Cosbennyer Signature (if applicable): Date cc: ~* Signed [facility] Work Phone: 1(647) 599-220607-10-2025 Progress note [facility] Medical Records Department [address] [place] [address] Progress Note 03/01/25 1033 MR#: [id number] Acct: [id number] Name: SHASHI OSWALD Rep #:[id number] : 1945 79 From: Katie Bah DO PCP: Dr. Candelario Santana MD Status:ADM I N Location: [place] [address]1 Subjective Subjective Afebrile. The blood pressure over [...] status: with other specified complication Diabetes mellitus buttermaker continuous churn insulin use: without penitentiary use Qualified Code(s): E11.69 - Type 2 [...] extremity today. Charges/Coding Visit Charges Inpatient E&M: 22497 Subs Hosp L1 03/01/25 1143 Katie Bah DO Cosigner Signature (if applicable): CC: ~ Signed ADDENDUM by Dr. Katie Bah DO on 03/01/25 at 1702 Addendum Venous ultrasound of the left lower extremity shows deep veins to be patent and compressible segmentally. 03/01/25 1702 ti DO> Date _ Katie Bah DO Cosigner Signature (if applicable): Date cc: ~* Signed [facility]07-09-2025 Progress note Author Katie Bah [facility] Note Date/Time February 28, 2025 11:36 am [facility] Medical Records Department [address] [place] [address] Progress Note 02/28/25911 MR#: [id number] Acct: [id number] Name: SHASHI OSWALD Rep #:[id number] : 1945 79 From: Katie Bah DO PCP: Dr. Candelario Santana MD Status:ADM I N Location: [place] [address] Subjective Subjective Finished 5 days of Macrobid [...] Referring Physician: Candelario Santana Chi Performed By: Linda, Patricia, RDCS Physical Exam Const alert Constitutional Narrative: [...] status: with other specified complication Diabetes mellitus penitentiary insulin use: without buttermaker continuous churn use Qualified Code(s): E11.69 - Type 2 [...] but the diastolic is always within goal. Amyhas been on metoprolol 12.5 mg twice daily [...] as OP. Charges/Coding Visit Charges Inpatient E&M: 07752 Subs Hosp L1 02/28/25 1136 <Electronically signed by Katie Bah DO> Katie Bah DO Cosigner Signature (if applicable): CC: ~ Signed [facility] Work Phone: 1([phone]) 542-479507-09-2025 Progress note [facility] Medical Records Department [address] [place] [address] Progress Note 02/28/25 0912 MR#: [id number] Acct: [id number] Name: SHASHI OSWALD Rep #:[id number] : 1945 79 From: Katie Bah DO PCP: Dr. Candelario Santana MD Status:ADM I N Location: [place] [address] Subjective Subjective Finished 5 days of Macrobid [...] status: with other specified complication Diabetes mellitus penitentiary insulin use: without buttermaker continuous churn use Qualified Code(s): E11.69 - Type 2 [...] as OP. Charges/Coding Visit Charges Inpatient E&M: 32831 Subs Hosp L1 02/28/25 1136 Katie Bah DO Cosigner Signature (if applicable): CC: ~ Signed [facility]07-07-2025 Progress note Author Katie Bah [facility] Note Date/Time February 26, 2025 3:37p m [facility] Medical Records Department [address] [place] [address] Progress Note 02/26/25 0857 MR#: [id number] Acct: [id number] Name: SHASHI OSWALD Rep #:[id number] : 1945 79 From: Katie Nash Judyjaquan DELEON PCP: Dr. Candelario Santana MD Status:ADM I N Location: [place] [address] Subjective Subjective Shashi was seen on team [...] status: with other specified complication Diabetes mellitus buttermaker continuous churn insulin use: without penitentiary use Qualified Code(s): E11.69 - Type 2 [...] will also need an event monitor at [place]. PLAN: Plan 1. Continue therapy 2. Finish [...] She will need a event monitor at [place] from rehab. She has had PAF while on rehab. 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 Also will need a carotid US (can be done as an OP) for loud R carotid bruit.....vs radiation of MM Charges/Coding Visit Charges Inpatient E&M: 56329 Subs Hosp L2 02/26/25 1537 <Electronically signed by Katie Bah DO> Katie Bah DO Cosigner Signature (if applicable): CC: ~ Signed [facility] Work Phone: 1([phone]) 409-279907-07-2025 Progress note [facility] Medical Records Department [address] [place] [address] Progress Note 02/26/25 0857 MR#: [id number] Acct: [id number] Name: SHASHI OSWALD Rep #:[id number] : 1945 79 From: Katie Bah DO PCP: Dr. Candelario Santana MD Status:ADM I N Location: [place] [address] Subjective Subjective Shashi was seen on team [...] status: with other specified complication Diabetes mellitus penitentiary insulin use: without buttermaker continuous churn use Qualified Code(s): E11.69 - Type 2 [...] will also need an event monitor at [place]. PLAN: Plan 1. Continue therapy 2. Finish [...] She will need a event monitor at [place] from [facility]. She has had PAF while on rehab. 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 Also will need a carotid US (can be done as an OP) for loud R carotid bruit.....vs radiation of MM Charges/Coding Visit Charges Inpatient E&M: 54761 [facility] Hosp L2 02/26/25 1537 Katie Bah DO Cosigner Signature (if applicable): CC: ~ Signed [facility]07-04-2025 Progress note Author Katie Bah [facility] Note Date/Time February 23, 2025 1:26p m [facility] Medical Records Department [address] [place] [address] Progress Note 02/23/25 1253 MR#: [id number] Acct: [id number] Name: SHASHI OSWALD Rep #:[id number] : 1945 79 From: Katie Bah DO PCP: Dr. Candelario Santana MD Status:ADM I N Location: [place] [address] Subjective Subjective Afebrile VSS -blood pressure since [...] Clarity Cloudy, Urine pH 6.5, Ur Specific Baltic 1.010, Urine Protein 30 H, Urine Glucose [...] Diabetes mellitus, type 2: QUALIFIERS: Diabetes mellitus buttermaker continuous churn insulin use: without penitentiary use Diabetes mellitus complication status: with other [...] Has not had a CT brain at [facility] in the past. TSH is high [...] is 98. Charges/Coding Visit Charges Inpatient E&M: 94070 Subs Hosp L1 02/23/25 1321 <Electronically signed [...] signed by Katie partida DO> Date _ Katei Bah DO Cosigner Signature (if applicable): Date cc: ~* Signed [facility] Work Phone: 1(179) 917-970507-04-2025 History and physical note Author Katie Bah [facility] Note Date/Time February 23, 2025 12:50 pm [facility] Medical Records Department [address] [place] [address] Post Admission Physician Danial 02/23/25 1242 MR#: [id number] Acct: [id number] Name: SHASHI OSWALD Rep #:[id number] : 1945 79 From: Katie Bah DO PCP: Dr. 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 for: Discharge Planning, Arranging Home [...] ) Was Preadmission Assessment Accurate?: Yes 02/23/25 3700 <Electronically signed by Katie Bah DO> Cosigner Signature (if applicable): CC: ~ Signed [facility] Work Phone: 1(350) 869-727007-04-2025 History and physical note Author Katie Bah [facility] Note Date/Time February 23, 2025 12:42 pm [facility] Medical Records Department [address] [place] [address] History & Physical Exam 02/22/25 0945 MR#: [id number] Acct: [id number] Name: SHASHI OSWALD Rep #:[id number] : 1945 79 From: Katie Bah DO PCP: Dr. Candelario Santana MD Status:ADM I N Location: [place] [address] HPI - General General Date of Admission: [...] who presented to the emergency department at [facility] on 02/15/2025 complaining of left hip pain [...] to the acute inpt rehab unit at [facility] on 02/21/25 for 3 hours of [...] this institution. Has not seen a neurologist. [facility] Medical History Hypothyroidism Diabetes mellitus, [...] % (Auto) 65.0, Lymph % (Auto) 23.7, [place]% (Auto) 7.2, Eos % (Auto) 3.0, Baso [...] Chacon, possibly with neurology following DC from Rehab AM lab including CMP, CBC, Mag [...] the AV. Charges/Coding Visit Charges Inpatient E&M: 74512 Init Hosp L2 02/23/25 1242 <Electronically signed by Katie Bah DO> Cosigner Signature (if applicable): CC: Dr. Matt Chacon MD; Dr. Katie Bah DO; Dr. Candelario Santana MD~ Signed [facility] Work Phone: 1(601) 975-247307-04-2025 Progress note [facility] Medical Records Department [address] [place] [address] Progress Note 02/23/25 1253 MR#: [id number] Acct: [id number] Name: SHASHI OSWALD Rep #:[id number] : 1945 79 From: Katie Bah DO PCP: Dr. Candelario Santana MD Status:ADM I N Location: [place] [address] Subjective Subjective Afebrile VSS -blood pressure since [...] Clarity Cloudy, Urine pH 6.5, Ur Specific [place] 1.010, Urine Protein 30 H, Urine Glucose [...] Diabetes mellitus, type 2: QUALIFIERS: Diabetes mellitus penitentiary insulin use: without penitentiary use Diabetes mellitus complication status: with other [...] Has not had a CT brain at [facility] in the past. TSH is high [...] is 98. Charges/Coding Visit Charges Inpatient E&M: 16958 Subs Hosp L1 02/23/25 1321 Katie Bah [...] Signature (if applicable): Date cc: ~* Signed [facility]07-04-2025 History and physical note [facility] Medical Records Department [address] [place] [address] Post Admission Physician Danial 02/23/25 1242 MR#: [id number] Acct: [id number] Name: SHASHI OSWALD Rep #:[id number] : 1945 79 From: Katie Bah DO PCP: Dr. 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 Candelario Santana MD Status:ADM I N Location: [place] [address] HPI - General General Date of Admission: [...] who presented to the emergency department at [facility] on 02/15/2025 complaining of left hip pain [...] to the acute inpt rehab unit at [facility] on 02/21/25 for 3 hours of [...] at this institution. Has not rajendra neurologist. [facility] Medical History Hypothyroidism Diabetes mellitus, [...] Neut% (Auto) 65.0, Lymph % (Auto) 23.7, [place]% (Auto) 7.2, Eos % (Auto) 3.0, Baso [...] the AV. Charges/Coding Visit Charges Inpatient E&M: 67717 Init Hosp L2 02/23/25 1242 Cosigner Signature (if applicable): CC: Dr. Matt Chacon MD; Dr. Katie Bah, DO; Dr. Candelario Santana MD~ Signed [facility]07-03-2025 [facility]07-02-2025 Hospital Discharge instructionsAdditional Instructions 1. WBAT LLE 2. Eliquis 2.5 mg BID x 30 days then stop 3. Dressing changes per ortho 4. Ortho F/U in 2 weeks Date of Discharge: 02/21/25[facility] Work Phone: 1(207) 435-231007-02-2025 Consult note [facility] Medical Records Department [address] [place] [address] Anesthesia Postop Eval II 02/19/25 0958 MR#: [id number] Acct: [id number] Name: SHASHI OSWALD Rep #:[id number] : 1945 79 From: Bi Zaman MD PCP: Dr. Candelario Santana MD Status:ADM I N Y Race: C Location: [facility] MS308 -1 Anesthesia Postop Eval I Sum Postop Eval Completion status Anesthesia document: Postop Eval 1 completed: Yes Anesthesia Postop Eval I Summary Anesthesia Postop Eval I Summary: Anesthesia Postop Eval I: Assessment Summary Airway patent Yes 02/16/25 12:50 VICTORIAN LITERATURE PROFESSOR.[email or web address] Spontaneous unlabored Yes 02/16/25 12:50 VICTORIAN LITERATURE PROFESSOR.SKOBY respirations Mental status Awake,Calm 02/16/25 12:50 VI[employer]IAN [employer]ITERATURE PROFESSOR.SKOBY nausea No 02/16/25 12:50 VICTORIAN LITERATURE PROFESSOR.SKOBY Vomiting No 02/16/25 12:50 VICTORIAN LITERATURE PROFESSOR.SKOBY Anesthesia Postop Eval I: Fluid Summary Crystalloid volume administer 2,400 02/16/25 12:50 VICTORIAN LITERATURE PROFESSOR.SKOBY (ml) Colloids volume administered ( ml) Blood Product volume administered (ml) Total IV fluid infused 2,400 02/16/25 12:50 VICTORIAN LITERATURE PROFESSOR.SKOBY Anesthesia Postop Eval I: Summary Notes Anesthesia Complication No 02/16/25 12:50 VICTORIAN LITERATURE PROFESSOR.SKOBY Anesthesia Complication Comment: Post-operative progress note to receive 2 units 02/16/25 12:50 VICTORIAN LITERATURE PROFESSOR.SKOBY of PRBCs, awaiting from blood bank, Dr. Zaman aware of units to be received and pressor requirements during case; currently weaned off and BP stable. Anesthesia: Postop Eval II Evaluation Mental status: Awake and Calm Pain Level: 1 nausea: No Vomiting: No Complications Anesthesia Complication: No 02/19/25 0958 vanessa ALFARO> Date _ Bi Zaman MD Cosigner Signature: Date CC: ~ Signed [facility]07-02-2025 Consult note [facility] Medical Records Department [address] [place] [address] Counseling Note - Pharmacy 02/21/2537 MR#: [id number] Acct: [id number] Name: SHASHI OSWALD Rep #:[id number] : 1945 79 From: Ena iVera PCP: Dr. Candelario Santana MD Status:ADM I N Y Location: [facility] JC150-3 Pharmacy [place] Med Reconciliation Pharmacy Service has performed discharge [...] Signature (if applicable): Date CC: ~ Signed [facility]07-02-2025 Discharge summary Author Gia Owusu [facility] Note Date/Time February 21, 2025 11:18 am [facility] Medical Records Department [address] [place] [address] Discharge Summary 02/21/25 0828 MR#: [id number] Acct: [id number] Name: SHASHI OSWALD Rep #:[id number] : 1945 79 From: Gia Owusu DO PCP: Dr. Candelario Santana MD Status:ADM I N [facility] Date of Admission: 02/15/25 Date of [...] female who presented to the emergency department [facility] on 02/15/2025 with a chief [...] Rehab Unit/Facility Charges/Coding Visit Charges Inpatient E&M: 44334 Disch Hosp >30min 02/21/25 1118 <Electronically signed by Gia Owusu DO> Cosigner Signature (if applicable): CC: Dr. Matt Chacon MD; Dr. Gia Owusu DO; Dr. Candelario Santana MD~ Signed [facility] Work Phone: 1(879) 853-390307-02-2025 Consult note Author Ena Viera [facility] Note Date/Time February 21, 2025 1:55p m [facility] Medical Records Department [address] [place] [address] Counseling Note - Pharmacy 02/21/25 0937 MR#: [id number] Acct: [id number] Name: SHASHI OSWALD Rep #:[id number] : 1945 79 From: Ena Viera PCP: Dr. Candelario Santana MD Status:ADM I N Y Location: [place] [address] Pharmacy [place] Med Reconciliation Pharmacy Service has performed discharge [...] Ena Viera Cosigner Signature (if applicable): Date __ CC: ~ Signed [facility] Work Phone: 1(516) 248-169107-02-2025 Discharge summary [facility] Medical Records Department [address] [place] [address] Discharge Summary 02/21/2528 MR#: [id number] Acct: [id number] Name: SHASHI OSWALD Rep #:[id number] : 1945 79 From: Gia Owusu DO PCP: Dr. Candelario Santana MD Status:ADM I N Location: [facility] YA627-1 Providers Date of Admission: 02/15/25 Date of [...] 100 mg tablet 1 tab PO TID 06/26/25 losartan 50 mg tablet 50 mg PO [...] female who presented to the emergency department [facility] on 02/15/2025 with a chief complaint [...] Rehab Unit/Facility Charges/Coding Visit Charges Inpatient E&M: 90377 Disch Hosp >30min 02/21/25 1118 Cosigner Signature (if applicable): CC: Dr. Matt Chacon MD; Dr. Gia Owusu DO; Dr. Candelario Santana MD~ Signed [facility] Progress note Author Gia Owusu [facility] Note Date/Time February 20, 2025 5:16p [facility] Medical Records Department [address] [place] [address] Progress Note - Hospitalist 02/20/25 1713 MR#: [id number] Acct: [id number] Name: SHASHI OSWALD Rep #:[id number] : 1945 79 From: Gia Owusu DO PCP: Dr. Candelario Santana MD Status:ADM I N Location: [facility]3 AU470-4 Reason for Visit Reason for Visit: L [...] - Has been accepted at rehab - Vuhj-ma-gwys done this evening and patient has been [...] ready for discharge from a medical standpoint. Iegs-vd-pjin done today with insurance company. She has been approved for rehab level of care at discharge. Per discussion with case management we will plan for discharge tomorrow to rehab. Charges/Coding Visit Charges Inpatient E&M: 47992 Subs Hosp L1 02/20/25 1716 <Electronically signed by Gia Owusu DO> Cosigner Signature (if applicable): CC: ~ Signed [facility] Work Phone: 1(205) 380-799507-01-2025 Progress note [facility] Medical Records Department [address] [place] [address] Progress Note - Hospitalist 02/20/25 1713 MR#: [id number] Acct: [id number] Name: SHASHI OSWALD Rep #:[id number] : 1945 79 From: Gia Owusu DO PCP: Dr. Candelario Santana MD Status:ADM I N Location: [facility]3 KN318-2 Reason for Visit Reason for Visit: L [...] 161 H 02/20/25 06:37: Hgb 8.6 L 07/01/25 10:16: Hgb 8.9 L 02/20/25 11:24: POC [...] - Has been accepted at rehab - Wggj-oe-luwq done this evening and patient has been [...] ready for discharge from a medical standpoint. Ozug-ez-nhlt done today with insurance company. She has been approved for rehab level of care at discharge. Per discussion with case management we will plan for discharge tomorrow to rehab. Charges/Coding Visit Charges Inpatient E&M: 68315 Subs Hosp L1 02/20/25 1716 Cosigner Signature (if applicable): CC: ~ Signed [facility]06-30-2025 Progress note Author Gia Owusu [facility] Note Date/Time February 19, 2025 4:12 pm [facility] Medical Records Department [address] [place] [address] Progress Note - Hospitalist 02/19/25 1607 MR#: [id number] Acct: [id number] Name: SHASHI OSWALD Rep #:[id number] : 1945 79 From: Gia Owusu DO PCP: Dr. Candelario Santana MD Status:ADM I N Location: [facility]3 NX502-0 Reason for Visit Reason for Visit: Left [...] for admission. Charges/Coding Visit Charges Inpatient E&M: 74358 Subs Hosp L1 02/19/25 1612 <Electronically signed by iGa Owusu DO> Cosigner Signature (if applicable): CC: ~ Signed [facility] Work Phone: 1(728) 258-116606-30-2025 Progress note [facility] Medical Records Department [address] [place] [address] Progress Note - Hospitalist 02/19/25 1607 MR#: [id number] Acct: [id number] Name: SHASHI OSWALD Rep #:[id number] : 1945 79 From: Gia Owusu DO PCP: Dr. Candelario Santana MD Status:ADM I N Location: [facility] HW153-9 Reason for Visit Reason for Visit: Left [...] for admission. Charges/Coding Visit Charges Inpatient E&M: 83235 Subs Hosp L1 02/19/25 1612 Cosigner Signature (if applicable): CC: ~ Signed [facility]06-30-2025 Progress note Author Matt Chacon [facility] Note Date/Time February 19, 2025 1:27 pm [facility] Medical Records Department [address] [place] [address] Progress Note - Orthopedic 02/19/25 1317 MR#: [id number] Acct: [id number] Name: SHASHI OSWALD Rep #:[id number] : 1945 79 From: Matt Chacon MD PCP: Dr. Candelario Santana MD Status:ADM I N Location: [facility] LS044-3 Documented by User: LEONIE Delaney 02/19/25 13:22 [...] Cosigner Signature (if applicable): CC: ~ Signed [facility] Work Phone: 1(924) 388-928806-30-2025 Progress note [facility] Medical Records Department [address] [place] [address] Progress Note - Orthopedic 02/19/25 1317 MR#: [id number] Acct: [id number] Name: SHASHI OSWALD Rep #:[id number] : 1945 79 From: Matt Chacon MD PCP: Dr. Candelario Santana MD Status:ADM I N Location: [facility] GS954-7 Documented by User: LEONIE Delaney 02/19/25 13:22 [...] Cosigner Signature (if applicable): CC: ~ Signed [facility]06-30-2025 Consult note Author Bi Zaman [facility] Note Date/Time February 21, 2025 1:55p m [facility] Medical Records Department [address] [place] [address] Anesthesia Postop Eval II 02/19/25 0958 MR#: [id number] Acct: [id number] Name: SHASHI OSWALD Rep #:[id number] : 1945 79 From: Bi Zaman MD PCP: Dr. Candelario Santana MD Status:ADM I N Y Race: C Location: [facility] MS308 -1 Anesthesia Postop Eval I Sum Postop Eval Completion status Anesthesia document: Postop Eval 1 completed: Yes Anesthesia Postop Eval I Summary Anesthesia Postop Eval I Summary: Anesthesia Postop Eval I: Assessment Summary Airway patent Yes 02/16/25 12:50 VICTORIAN LITERATURE PROFESSOR.SKOBY Spontaneous unlabored Yes 02/16/25 12:50 VICTORIAN LITERATURE PROFESSOR.SKOBY respirations Mental status Awake,Calm 02/16/25 12:50 VICTORIAN LITERATURE PROFESSOR.SKOBY nausea No 02/16/25 12:50 VICTORIAN LITERATURE PROFESSOR.SKOBY Vomiting No 02/16/25 12:50 VICTORIAN LITERATURE PROFESSOR.SKOBY Anesthesia Postop Eval I: Fluid Summary Crystalloid volume administer 2,400 02/16/25 12:50 TRENT (ml) Colloids volume administered ( ml) Blood Product volume administered (ml) Total IV fluid infused 2,400 02/16/25 12:50 VICTORIAN LITERATURE PROFESSORMERNA Anesthesia Postop Eval I: Summary Notes Anesthesia Complication No 02/16/25 12:50 VICTORIAN LITERATURE PROFESSORMERNA Anesthesia Complication Comment: Post-operative progress note to [...] MD Cosigner Signature: Date CC: ~ Signed [facility] Work Phone: 1([phone]) 783-916406-29-2025 Progress note Author Gia Owusu [facility] Note Date/Time February 18, 2025 12:4 3pm [facility] Medical Records Department [address] [place] [address] Progress Note - Hospitalist 02/18/25 0719 MR#: [id number] Acct: [id number] Name: SHASHI OSWALD Rep #:[id number] : 1945 79 From: Gia Owusu DO PCP: Dr. 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 Charges/Coding Visit Charges Inpatient E&M: 85990 Subs Hosp L2 02/18/25 1243 <Electronically signed by Gia Owusu DO> Cosigner Signature (if applicable): CC: ~ Signed [facility] Work Phone: 1(258) 340-945806-29-2025 Progress note [facility] Medical Records Department [address] [place] [address] Progress Note - Hospitalist 02/18/25 0719 MR#: [id number] Acct: [id number] Name: SHASHI OSWALD Rep #:[id number] : 1945 79 From: Gia Owusu DO PCP: Dr. 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 Charges/Coding Visit Charges Inpatient E&M: 58233 Subs Hosp L2 02/18/25 1243 Cosigner Signature (if applicable): CC: ~ Signed [facility]06-28-2025 Progress note Author Gia Owusu [facility] Note Date/Time February 17, 2025 4:05 pm [facility] Medical Records Department [address] [place] [address] Progress Note - Hospitalist 02/17/25 0745 MR#: [id number] Acct: [id number] Name: SHASHI OSWALD Rep #:[id number] : 1945 79 From: Gia Owusu DO PCP: Dr. Candelario Santana MD Status:ADM I N Location: [place] [address] Reason for Visit Reason for Visit: Inability [...] % (Auto) 66.6, Lymph % (Auto) 22.0, [place]% (Auto) 10.3 H, Eos % (Auto) 0.3, [...] 24 fluoroscopic images were obtained. Reading Location: [facility]- Hip X-Ray 02/16/25 08:00 IMPRESSION: Intraoperative fluoroscopy was performed for fracture fixation of the proximal left femur. A total of 24 fluoroscopic images were obtained. 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 Candelario Santana MD Status:ADM I N Location: [facility] YD086-1 Reason for Visit Reason for Visit: Inability [...] Neut% (Auto) 66.6, Lymph % (Auto) 22.0, [place]% (Auto) 10.3 H, Eos % (Auto) 0.3, [...] 24 fluoroscopic images were obtained. Reading Location: [place] [address] Hip X-Ray 02/16/25 08:00 IMPRESSION: Intraoperative fluoroscopy was performed for fracture fixation of the proximal left femur. A total of 24 fluoroscopic images were obtained. 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 Candelario Santana MD Status:ADM I N Location: [facility]3 NK920-6 Subjective Subjective Postop day 1 status post [...] % (Auto) 66.6, Lymph % (Auto) 22.0, [place]% (Auto) 10.3 H, Eos % (Auto) 0.3, [...] 24 fluoroscopic images were obtained. Reading Location: [place] [address] Hip X-Ray 02/16/25 08:00 IMPRESSION: Intraoperative fluoroscopy was performed for fracture fixation of the proximal left femur. A total of 24 fluoroscopic images were obtained. Reading Location: [place] [address] Physical Exam Narrative Dressing?CDI. Distal neurovascular exam [...] Cosigner Signature (if applicable): CC: ~ Signed [facility] Work Phone: 1(463) [phone] Progress note [facility] Medical Records Department [address] [place] [address] Progress Note - Orthopedic 02/17/25 1137 MR#: [id number] Acct: [id number] Name: SHASHI OSWALD Rep #:[id number] : 1945 79 From: Matt Chacon MD PCP: Dr. Candelario Santana MD Status:ADM I N Location: [facility]3 ZE930-2 Subjective Subjective Postop day 1 status post [...] Neut% (Auto) 66.6, Lymph % (Auto) 22.0, [place]% (Auto) 10.3 H, Eos % (Auto) 0.3, [...] 24 fluoroscopic images were obtained. Reading Location: [place] [address] Hip X-Ray 02/16/25 08:00 IMPRESSION: Intraoperative fluoroscopy was performed for fracture fixation of the proximal left femur. A total of 24 fluoroscopic images were obtained. Reading Location: [place] [address] Physical Exam Narrative Dressing?CDI. Distal neurovascular exam [...] Cosigner Signature (if applicable): CC: ~ Signed [facility]06-27-2025 Progress note Author Baldev Berry [facility] Note Date/Time February 16, 2025 3:31 pm [facility] Medical Records Department [address] [place] [address] Progress Note - Hospitalist 02/16/25 0663 MR#: [id number] Acct: [id number] Name: DAREKSHASHI Rep #:[id number] : 1945 79 From: Baldev Berry DO PCP: Dr. Candelario Santana MD Status:ADM I N Location: [facility] DW930-7 Reason for Visit Reason for Visit: Diagnoses [...] % (Auto) 50.2, Lymph % (Auto) 38.6, [place]% (Auto) 8.7, Eos % (Auto) 1.8, Baso [...] Clarity Clear, Urine pH 6.5, Ur Specific [place] 1.010, Urine Protein 30 H, Urine Glucose [...] % (Auto) 60.6, Lymph % (Auto) 27.3, [place]% (Auto) 9.3, Eos % (Auto) 1.9, Baso [...] left intertrochanteric fracture. Reading Location: [facility] Hip/Pelvis X-Ray 02/15/25 13:40 IMPRESSION: Comminuted impacted left intertrochanteric fracture. Reading Location: [facility] Physical Exam Const alert and no apparent [...] prophylaxis: SCDs. Charges/Coding Visit Charges Inpatient E&M: 05236 Subs Hosp L2 02/16/25 5438 <Electronically signed by Baldev Berry DO> Cosigner Signature (if applicable): CC: ~ Signed [facility] Work Phone: 1(230) [phone] Progress note [facility] Medical Records Department [address] [place] [address] Progress Note - Hospitalist 02/16/25 0750 MR#: [id number] Acct: [id number] Name: SHASHI OSWALD Rep #:[id number] : 1945 79 From: Baldev Berry DO PCP: Dr. Candelario Santana MD Status:ADM I N Location: [facility]3 QN039-1 Reason for Visit Reason for Visit: Diagnoses [...] Neut% (Auto) 50.2, Lymph % (Auto) 38.6, [place]% (Auto) 8.7, Eos % (Auto) 1.8, Baso [...] Clarity Clear, Urine pH 6.5, Ur Specific [place] 1.010, Urine Protein 30 H, Urine Glucose [...] Neut% (Auto) 60.6, Lymph % (Auto) 27.3, [place]% (Auto) 9.3, Eos % (Auto) 1.9, Baso [...] left intertrochanteric fracture. Reading Location: [facility] Hip/Pelvis X-Ray 02/15/25 13:40 IMPRESSION: Comminuted impacted left intertrochanteric fracture. Reading Location: [facility] Physical Exam Const alert and no apparent [...] prophylaxis: SCDs. Charges/Coding Visit Charges Inpatient E&M: 48460 Subs Hosp L2 02/16/25 1531 Cosigner Signature (if applicable): CC: ~ Signed [facility]06-27-2025 Procedure note [facility] Medical Records Department [address] [place] [address] Operative Report 02/16/25 1502 MR#: [id number] Acct: [id number] Name: SHASHI OSWALD Rep #:[id number] : 1945 79 From: Matt Chcaon MD PCP: Dr. Candelario Santana MD Status:ADM I N Location: [facility] VL880-9 Procedures Musculoskeletal 20xxx-29xxx: Other Procedure See Report Operative Report (Standard) Operative Information Date of Procedure: 02/16/25 Pre-Operative Diagnosis: Left femur intertrochanteric fracture with subtrochanteric extension, displaced Post-Operative Diagnosis: Same Surgery/Procedure Performed: Left femur cephalomedullary nailing with long gammanail, open reduction internal fixation alarm investigator: Yes Social Work Nurse: Holden Delgadillo Tasks completed by asset protection assistant: Closing, Implanting device and Retracting Type [...] that apply: Implanted device Implanted device details: [place] gamma 4 cephalomedullary nail Estimated Blood Loss: 150 cc Specimen collected: No Description of surgery: Operative Report Pre-operative Diagnosis: Left displaced intertrochanteric Femur Fracture with subtrochanteric extension Post-operative Diagnosis: Same Procedure(s) Performed: Left femur open reduction internal fixation, Cephalmedullary Nailing CPT 44780, modifier 22, old fracture requiring significant fracture debridement and difficult open reduction attempts Surgeon: Dr. Matt Chacon MD [facility] Pricing Consultant: None Estimated Blood Loss: 150 ml Anesthesia: General Drains: None Specimens: None Implants: [place] Gamma4 Trochanteric Nail 360 x 11 mm, [...] time transported to the operative theater by [facility]. A Time Out was held and [...] the help of the C-arm with perfect deering technique. This was placed inthe proximal end of the oblong hole. Final fluorscopic images were then taken and the placement of the intramedullary device and fracture was deemed appropriate. The wounds were irrigated copiously with sterile solution. Vastus lateralis and the deep fascia was closed with 0 vicryl suture in separate layers. The deep dermal layer was closed with 2-0 vicryl suture. Section were used to close the skin. Aquacel [...] Candelario Santana MD; Dr. Terry, DO~ Signed [facility]06-27-2025 Consult note Author Sheridan Mcknight [facility] Note Date/Time February 16, 2025 12:5 0pm [facility] Medical Records Department [address] [place] [address] Anesthesia Postop Eval I 02/16/25 1248 MR#: [id number] Acct: [id number] Name: SHASHI OSWALD Rep #:[id number] : 1945 79 From: Sheridan simmons CRNA PCP: Dr. Candelario Santana MD Status:ADM I N Y Race: C Location: [place] [address] Anesthesia: Postop Eval I Current Vital Signs [...] CRNA Cosigner Signature: Date CC: ~ Signed [facility] Work Phone: 1(784) 824-822606-27-2025 Radiology Diagnostic study note [facility] Imaging Services [address] [place] [address] Hip Min 2 Views (Portable) MR#: [id number] Acct: [id number] Name: SHASHI OSWALD Rep #: [id number] : 1945 F 79 From: Hector Talley MD PCP: Dr. Candelario Santana MD Status: ADM I N Study:Hip Min 2 Views (Portable) Date of Exam : 02/16/25 Exam# [id number] Ordering Dr: Ronal Chacon MD PROCEDURE: HIP [...] 24 fluoroscopic images were obtained. Reading Location: [place] [address] CC: Dr. Matt Chacon MD; Dr. Candelario Santana MD ~ Pelletizer: Signed [facility]06-27-2025 Radiology Diagnostic study note [facility] Imaging Services [address] [place] [address] O.R. Fluoro for C-Arm MR#: [id number] Acct: [id number] Name: SHASHI OSWALD Rep #: [id number] : 1945 F 79 From: Hector Talley MD PCP: Dr. Candelario Santana MD Status: ADM I N Study:O.R. Fluoro for C-Arm Date of Exam: 02/16/25 Exam# [id number] Ordering Dr: Ronal Chacon MD PROCEDURE: HIP [...] 24 fluoroscopic images were obtained. Reading Location: [place] [address] CC: Dr. Matt Chacon MD; Dr. Candelario Santana MD ~ Pelletizer: Signed [facility]06-27-2025 Consult note [facility] Medical Records Department [address] [place] [address] Anesthesia Postop Eval I 02/16/25 1248 MR#: [id number] Acct: [id number] Name: SHASHI OSWALD Rep #:[id number] : 1945 79 From: Sheridan simmons CRNA PCP: Dr. Candelario Santana MD Status:ADM I N Y Race: C Location: [place] [address] Anesthesia: Postop Eval I Current Vital Signs [...] Eval 1 completed: Yes 02/16/25 1250 nski VICTORIAN LITERATURE PROFESSOR> Date _ Sheridan Mcknight CRNA Cosigner Signature: Date CC: ~ Signed [facility]06-27-2025 Consult note Author Matt Chacon [facility] Note Date/Time February 16, 2025 9:23 am [facility] Medical Records Department [address] [place] [address] Consultation - Orthopedics 02/16/25912 MR#: [id number] Acct: [id number] Name: SHASHI OSWALD Rep #:[id number] : 1945 79 From: Matt Chacon MD PCP: Dr. Candelario Santana MD Status:ADM I N Location: [facility] EN692-6 HPI Consult Data Date of Consult: 02/16/25 [...] thinners. She is anemic with hemoglobin 8.7. [facility] Medical History Hyperthyroidism Rheumatoid arthritis [...] 50 mg tablet 50 mg PO DAILY 02/15/25/02/14 History Allergy/AdvReac Type Severity Reaction Status Date [...] % (Auto) 50.2, Lymph % (Auto) 38.6, [place]% (Auto) 8.7, Eos % (Auto) 1.8, Baso [...] Clarity Clear, Urine pH 6.5, Ur Specific [place] 1.010, Urine Protein 30 H, Urine Glucose [...] % (Auto) 60.6, Lymph % (Auto) 27.3, [place]% (Auto) 9.3, Eos % (Auto) 1.9, Baso [...] left intertrochanteric fracture. Reading Location: [facility] Hip/Pelvis X-Ray 02/15/25 13:40 IMPRESSION: Comminuted impacted left intertrochanteric fracture. Reading Location: [facility] Assessment & Plan Assessment/Plan (1) Intertrochanteric fracture [...] was signed. Charges/Coding Visit Charges Inpatient E&M: 19372 Init Hosp L3 02/16/25 0918 <Electronically signed [...] the surgery and wishes to proceed. 02/16/25 0923<Electronically signed by Matt Chacon MD> Cosigner Signature (if applicable): cc: Dr. Baldev Berry, DO; Dr. Candelario Santana MD; Dr. Abdirashid Cano, DO ~* Signed [facility] Work Phone: 1(405) 353-270706-27-2025 Consult note Author Bi Zaman [facility] Note Date/Time February 16, 2025 8:45 am [facility] Medical Records Department [address] [place] [place] [address] Pre-Anesthesia Evaluation 02/16/25 0836 MR#: [id number] Acct: [id number] Name: SHASHI OSWALD Rep #:[id number] : 1945 79 From: Bi Zaman MD PCP: Dr. Candelario Santana MD Status:ADM I N Y Race: C Location: [facility] [place] MS308 -1 ASA Classification* [...] Gamma nail. Anesthesia History Anesthesia History - soft work wrapper layer and examiner: Anesthesia History - soft work wrapper layer and examiner Hx Hospitalization Yes: 02/202211/20/22 12:16 Any Problems [...] Yes NPO since: 00:00 PONV PONV - soft work wrapper layer and examiner: PONV - soft work wrapper layer and examiner Female HX of Motion Sickness HX of N/V After Surgery Non-Smoker Duration of Surgery greater than 60 minutes Number of Risk Factors PONV Score Height & Weight Height & Weight: Anesthesia: Height & Weight Height 5 ft 1 in 02/15/25 16:04 Weight: 57.289 kg 02/15/25 16:04 Body Mass Index (BMI) 23.8 02/15/25 16:04 Respiratory Assessment Respiratory Assessment - soft work wrapper layer and examiner: Respiratory Tract Infection Hx - soft work wrapper layer and examiner Hx Respiratory Tract Infection No 02/16/25 00:28 STOP Sleep Apnea STOP Sleep Apnea - soft work wrapper layer and examiner: STOP Sleep Apnea - soft work wrapper layer and examiner Hx Hypertension Yes: CONTROLLED WITH MED 02/15/25 [...] Tobacco Use History Tobacco Use History - soft work wrapper layer and examiner: Tobacco Use History - soft work wrapper layer and examiner Tobacco Use Smoking Status Never smoker 02/15/25 16:04 Hx Tobacco Use No 02/15/25 16:04 Years Smoking Packs Smoked per Day Smoking Cessation Date was within the last 15 years Hx Smoking Cessation Date Hx Smoking Cessation Counseling Hematologic Medial History Hematologic Hx - soft work wrapper layer and examiner: 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 Hx of Blood Transfusion No 02/15/25 16:04 [...] confused, unrespo /Reproduction History /Reproductive History - soft work wrapper layer and examiner: /Reproductive Hx- soft work wrapper layer and examiner Hx Now Gestational Age (in weeks): EDC: [...] mls @ 15 mls/hr 02/15/25 16:08 IV .[id number] PRN Saline Flush Sodium Chloride 250 mls @ 15 mls/hr 02/15/25 16:08 IV .[id number] PRN Additional IVPB Infusion Lactated Ringer's 1,000 [...] MD Cosigner Signature: Date CC: ~ Signed [facility] Work Phone: 1([phone]) 271-296206-27-2025 Consult note [facility] Medical Records Department [address] [place] [address] Consultation - Orthopedics 02/16/25912 MR#: [id number] Acct: [id number] Name: SHASHI OSWALD Rep #:[id number] : 1945 79 From: Matt Chacon MD PCP: Dr. Candelario Santana MD Status:ADM I N Location: [place] [address] HPI Consult Data Date of Consult: 02/16/25 [...] for a week. She refused to go [facility] initially but since the pain worsened she came to the hospital yesterday. Prior to thefall she wasable to ambulate without any ambulatory aid. She was mainly housebound elevatedbut did go some grocery runs. Denied any significant balance issues or limping prior to the fall. She is a known diabetic. Denies any blood thinners. She is anemic with hemoglobin 8.7. [facility] Medical History Hyperthyroidism Rheumatoid arthritis [...] Neut% (Auto) 50.2, Lymph % (Auto) 38.6, [place]% (Auto) 8.7, Eos % (Auto) 1.8, Baso [...] Clarity Clear, Urine pH 6.5, Ur Specific Baltic 1.010, Urine Protein 30 H, Urine Glucose [...] Neut% (Auto) 60.6, Lymph % (Auto) 27.3, [place]% (Auto) 9.3, Eos % (Auto) 1.9, Baso [...] left intertrochanteric fracture. Reading Location: [facility] Hip/Pelvis X-Ray 02/15/25 13:40 IMPRESSION: Comminuted impacted left intertrochanteric fracture. Reading Location: [facility] Assessment & Plan Assessment/Plan (1) Intertrochanteric fracture [...] was signed. Charges/Coding Visit Charges Inpatient E&M: 10823 Init Hosp L3 02/16/25 0918 Cosigner Signature [...] MD; Dr. Abdirashid Cano DO ~* Signed [facility]06-27-2025 Consult note [facility] Medical Records Department [address] [place] [address] Pre-Anesthesia Evaluation 02/16/25 0836 MR#: [id number] Acct: [id number] Name: SHASHI OSWALD Rep #:[id number] : 1945 79 From: Bi Zaman MD PCP: Dr. Candelario Santana MD Status:ADM I N Y Race: C Location: [facility]308 -1 ASA Classification* ASA Classification ASA Classification: [...] Gamma nail. Anesthesia History Anesthesia History - soft work wrapper layer and examiner: Anesthesia History - soft work wrapper layer and examiner Hx Hospitalization Yes: 02/202211/20/22 12:16 Any Problems [...] Yes NPO since: 00:00 PONV PONV - soft work wrapper layer and examiner: PONV - soft work wrapper layer and examiner Female HX of Motion Sickness HX of N/V After Surgery Non-Smoker Duration of Surgery greater than 60 minutes Number of Risk Factors PONV Score Height & Weight Height & Weight: Anesthesia: Height & Weight Height 5 ft 1 in 02/15/25 16:04 Weight: 57.289 kg 02/15/25 16:04 Body Mass Index (BMI) 23.8 02/15/25 16:04 Respiratory Assessment Respiratory Assessment - soft work wrapper layer and examiner: Respiratory Tract Infection Hx - soft work wrapper layer and examiner Hx Respiratory Tract Infection No 02/16/25 00:28 STOP Sleep Apnea STOP Sleep Apnea - soft work wrapper layer and examiner: STOP Sleep Apnea - soft work wrapper layer and examiner Hx Hypertension Yes: CONTROLLED WITH MED 02/15/25 [...] Tobacco Use History Tobacco Use History - soft work wrapper layer and examiner: Tobacco Use History - soft work wrapper layer and examiner Tobacco Use Smoking Status Never smoker 02/15/25 16:04 Hx Tobacco Use No 02/15/25 16:04 Years Smoking Packs Smoked per Day Smoking Cessation Date was within the last 15 years Hx Smoking Cessation Date Hx Smoking Cessation Counseling Hematologic Medial History Hematologic Hx - soft work wrapper layer and examiner: 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 Hx of Blood Transfusion No 02/15/25 16:04 [...] confused, unrespo /Reproduction History /Reproductive History - soft work wrapper layer and examiner: /Reproductive Hx- soft work wrapper layer and examiner Hx Now Gestational Age (in weeks): EDC: [...] mls @ 15 mls/hr 02/15/25 16:08 IV .[id number] PRN Saline Flush Sodium Chloride 250 mls @ 15 mls/hr 02/15/25 16:08 IV .[id number] PRN Additional IVPB Infusion Lactated Ringer's 1,000 [...] Ml Liquid PO Not Given 4X/DAY [facility] Ondansetron HCl 4 mg 02/15/25 16:01 [...] MD Cosigner Signature: Date CC: ~ Signed [facility]06-26-2025 History and physical note Author Lakeshia Mas [facility] Note Date/Time February 15, 2025 3:05 pm [facility] Medical Records Department [address] [place] [address] H&P Exam - Hospitalist 02/15/25 1456 MR#: [id number] Acct: [id number] Name: SHASHI OSWALD Rep #:[id number] : 1945 79 From: Lakeshia Mas MD PCP: Dr. Candelario Santana MD Status:REG E R Location: ED HPI - General General Date of Admission: 02/15/25 Date of Service: 02/15/25 Chief Complaint: Left hip fracture HPI Narrative SHASHI OSWALD, is a 79-year-old female history of diabetes, hypertension, hypothyroidism presented to [facility] ED 02/15/2025 with inability to walk. She [...] up she called EMS and presented [facility]. On arrival in the ED patient [...] has no other new or acute complaints [facility] Medical History Wears glasses Rash [...] % (Auto) 50.2, Lymph % (Auto) 38.6, [place]% (Auto) 8.7, Eos % (Auto) 1.8, Baso [...] Clarity Clear, Urine pH 6.5, Ur Specific Baltic 1.010, Urine Protein 30 H, Urine Glucose (UA) Normal, Urine Ketones 15 H, Urine Occult Blood 10 H, Urine Nitrite Negative, Urine Bilirubin Negative, Urine Urobilinogen 8 H, Ur Leukocyte Esterase Negative Imaging Radiology Impression Femur X-Ray 02/15/25 13:40 IMPRESSION: Comminuted impacted left intertrochanteric fracture. Reading Location: [facility] Hip/Pelvis X-Ray 02/15/25 13:40 IMPRESSION: Comminuted impacted left intertrochanteric fracture. Reading Location: [facility] Assessment & Plan Assessment/Plan (1) Hip fracture: [...] Mas MD Charges/Coding Visit Charges Inpatient E&M: 09840 Init Hosp L2 02/15/25 1506 <Electronically signed by Lakeshia Mas MD> Cosigner Signature (if applicable): CC: Dr. Lakeshia Mas MD; Dr. Candelario Santana MD~ Signed [facility] Work Phone: 1([phone]) 195-751506-26-2025 Evaluation note* Diagnosis Onset Date Resolution Status Admit Date Anemia acute February 15 2:56pm Fall acute February 15 2:56pm Hip fracture acute February 15 025 2:56pm Intertrochanteric fracture o f left femur acute February 15, 2025 2:56pm Occult blood in stools [facility] 2024 2:56pm Status post hip surgery acute [facility] 2024 2:56pm Vitamin D deficiency acute February 15, 2025 2:56pm Constipation chronic February 15 025 2:56pm [facility] Work Phone: 1([phone]) 308-270806-26-2025 Evaluation note* Diagnosis Onset Date Resolution Status Admit Date Occult blood in stools [facility] 2024 2:56pm Anemia chronic February 15 2:56pm Vitamin D deficiency chronic February 15, 2025 2:56pm Constipation resolved February 15 025 2:56pm Hip fracture resolved Carly 26[facility], 2 025 2:56pm Intertrochanteric fracture o f [...] 2:16pm Status post hip surgery acute [facility] 2024 2:16pm Anemia chronic February 21, 2025 2:16pm [...] (ORIF) procedure inactive February 21, 2025 2:16pm [facility] Work Phone: 1([phone]) 303-759806-26-2025 Evaluation note* Diagnosis Onset Date Resolution Status [...] 2:56pm Status post hip surgery deleted [facility] 2024 2:56pm Debility acute February 21, 2025 2:16pm Hyponatremia acute February 21 2:16pm Occult blood in stools acute [facility] 2024 2:16pm Paroxysmal atrial fibrillation acute February [...] February 21, 2025 2:16pm Orthostatic hypotension resolved [facility] 2024 2:16pm Cognitive dysfunction inactive Feb 2:16pm Diabetes mellitus, type 2 inactive February 21, 2025 2:16pm H/O thyroidectomy inactive February 2:16pm History of hemorrhoids inactive [facility] 2024 2:16pm History of open reduction an d internal fixation (ORIF) procedure inactive February 21, 2025 2:16pm Hyperlipemia inactive February 21 2:16pm Hypothyroidism inactive February 21, 2025 2:16pm Murmur, cardiac inactive February 21, 2025 2:16pm Parkinson's disease inactive February 21, 2025 2:16pm Status post hip surgery inactive [facility] 2024 2:16pm [facility] Work Phone: [phone]) 622-909306-26-2025 Evaluation note* Diagnosis Onset Date Resolution Status Admit Date Occult blood in stools acute [facility] 2024 2:56pm Anemia chronic February 15 2:56pm Vitamin D deficiency chronic February 15, 2025 2:56pm Constipation resolved February 15, 2 025 2:56pm Hip fracture resolved February 15 2 025 2:56pm Intertrochanteric fracture o f left femur resolved February 15, 2025 2:56pm Fall inactive February 15 2:56pm Status post hip surgery deleted [facility] 2024 2:56pm Debility acute February 21, [...] 21, 2025 2 :16pm Orthostatic hypotension resolved J 2024 2:16pm Cognitive dysfunction inactive Feb 2:16pm Diabetes mellitus, type 2 inactive February 21, 2025 2:16pm H/O thyroidectomy inactive February 2:16pm History of hemorrhoids inactive 2024 2:16pm History of open reduction an d internal fixation (ORIF) procedure inactive February 21, 2025 2 :16pm Hyperlipemia inactive February 21 2:16pm Hypothyroidism inactive February 21, 2025 2:16pm Murmur, cardiac inactive February 21, 2025 2:16pm Parkinson's disease inactive February 21, 2025 2:16pm Status post hip surgery inactive 2024 2:16pm Intertrochanteric fracture o f left femur resolved March 29, 2025 1:54pm History of open reduction an d internal fixation (ORIF) procedure inactive March 29, 2025 1:54pm [facility] Work Phone: 1(282) 484-395206-26-2025 Discharge summary Author Abdirashid Cano [facility] Note Date/Time February 15, 2025 2:40 pm [facility] Medical Records Department [address] [place] [address] Emergency Department Summary 02/15/25 MR#: [id number] Acct: [id number] Name: SHASHI OSWALD Rep #:[id number] : 1945 79 From: Abdirashid Cano DO [...] up she came in by EMS today. [facility] Medical History Wears glasses Rash Thyroid disease [...] % (Auto) 50.2 Lymph % (Auto) 38.6 [place] % (Auto) 8.7 Eos % (Auto) 1.8 Baso % (Auto) 0.4 Absolute Neuts (auto) 4.6 Absolute Lymphs (auto) 3.52 Nucleated RBC % 0 Urine Color Straw Urine Clarity Clear Urine pH 6.5 Ur Specific Baltic 1.010 Urine Protein 30 H Urine Glucose (UA) Normal Urine Ketones 15 H Urine Occult Blood 10 H Urine Nitrite Negative Urine Bilirubin Negative Urine Urobilinogen 8 H Ur Leukocyte Esterase Negative Radiography Diagnostic Testing: Clinical Impression(s) from Imaging Studies Femur X-Ray 02/15/25 13:40 IMPRESSION: Comminuted impacted left intertrochanteric fracture. Reading Location: [facility] Hip/Pelvis X-Ray 02/15/25 13:40 IMPRESSION: Comminuted impacted left intertrochanteric fracture. Reading Location: [facility] Discharge Plan Triage Chief Complaint: Lower Extremity Injury ED Provider: Abdirashid Cano Dx/Rx/DC Orders Clinical Impression: Fall, Hip fracture Prescriptions: No Action losartan 50 mg tablet 50 mg PO DAILY carbidopa-levodopa 25-100 mg tablet 1 tab PO TID Primary Care Provider: Candelario Santana Chi Referrals: Candelario Santana Chi, MD [Primary Care Provider] - Print Language: Emirati Disposition Disposition: Acute Care Hospital [facility] What to do if you have Problems For any increased pain, shortness of breath, bleeding, nausea or vomiting, chestpain, or any unexpected problems, contact your Primary Care Provider. Call [employer] Registry ([phone]) or report to the closest Emergency Room. Call 911 if necessary. 02/15/25 1438 <Electronically signed by Abdirashid Cano DO> Cosigner Signature (if applicable): CC: Dr. Candelario Santana MD ~ Signed [facility] Work Phone: 1(709) 667-410306-26-2025 History and physical note [facility] Medical Records Department [address] [facility] [place] [address] H&P Exam - Hospitalist 02/15/25 1456 MR#: [id number] Acct: [id number] Name: SHASHI OSWALD Rep #:[id number] : 1945 79 From: Lakeshia Mas MD PCP: Dr. Candelario Santana MD Status:REG E R Location: ED HPI - General General Date of Admission: 02/15/25 Date of Service: 02/15/25 Chief Complaint: Left hip fracture HPI Narrative SHASHI OSWALD, is a 79-year-old female history of diabetes, hypertension, hypothyroidism presented to [facility] ED 02/15/2025 with inability to walk. She fell Wednesday of last week and hadher sons help her get to the couch but she has not been able to get up off the couch since then andnotes that friends and family been bringing her food and water/drinks but due tot persistent painand still not able to get up she called EMS and presented [facility]. On arrival in the ED patient [...] has no other new or acute complaints [facility] Medical History Wears glasses Rash [...] Neut% (Auto) 50.2, Lymph % (Auto) 38.6, [place]% (Auto) 8.7, Eos % (Auto) 1.8, Baso [...] Clarity Clear, Urine pH 6.5, Ur Specific Baltic 1.010, Urine Protein 30 H, Urine Glucose (UA) Normal, Urine Ketones 15 H, Urine Occult Blood 10 H, Urine Nitrite Negative, Urine Bilirubin Negative, Urine Urobilinogen 8 H, Ur Leukocyte Esterase Negative Imaging Radiology Impression Femur X-Ray 02/15/25 13:40 IMPRESSION: Comminuted impacted left intertrochanteric fracture. Reading Location: [facility] Hip/Pelvis X-Ray 02/15/25 13:40 IMPRESSION: Comminuted impacted left intertrochanteric fracture. Reading Location: [facility] Assessment & Plan Assessment/Plan (1) Hip fracture: [...] to be on any oral hypoglycemics anymore, [id number], glucose checks sliding scale insulin #Hypothyroidism -With [...] Mas MD Charges/Coding Visit Charges Inpatient E&M: 04142 Init Hosp L2 02/15/25 1505 Cosigner Signature (if applicable): CC: Dr. Lakeshia Mas MD; Dr. Candelario Santana MD~ Signed [facility]06-26-2025 Discharge summary [facility] Medical Records Department [address] [place] [address] Emergency Department Summary 02/15/25 MR#: [id number] Acct: [id number] Name: SHASHI OSWALD Rep #:[id number] : 1945 79 From: Abdirashid Cano DO [...] up she came in by EMS today. [facility] Medical History Wears glasses Rash Thyroid disease [...] % (Auto) 50.2 Lymph % (Auto) 38.6 [place] % (Auto) 8.7 Eos % (Auto) 1.8 Baso % (Auto) 0.4 Absolute Neuts (auto) 4.6 Absolute Lymphs (auto) 3.52 Nucleated RBC % 0 Urine Color Straw Urine Clarity Clear Urine pH 6.5 Ur Specific Baltic 1.010 Urine Protein 30 H Urine Glucose (UA) Normal Urine Ketones 15 H Urine Occult Blood 10 H Urine Nitrite Negative Urine Bilirubin Negative Urine Urobilinogen 8 H Ur Leukocyte Esterase Negative Radiography Diagnostic Testing: Clinical Impression(s) from Imaging Studies Femur X-Ray 02/15/25 13:40 IMPRESSION: Comminuted impacted left intertrochanteric fracture. Reading Location: [facility] Hip/Pelvis X-Ray 02/15/25 13:40 IMPRESSION: Comminuted impacted left intertrochanteric fracture. Reading Location: [facility] Discharge Plan Triage Chief Complaint: Lower Extremity Injury ED Provider: Abdirashid Cano Dx/Rx/DC Orders Clinical Impression: Fall, Hip fracture Prescriptions: No Action losartan 50 mg tablet 50 mg PO DAILY carbidopa-levodopa 25-100 mg tablet 1 tab PO TID Primary Care Provider: Candelario Santana Chi Referrals: Candelario Santana Chi, MD [Primary Care Provider] - Print Language: Emirati Disposition Disposition: Acute Care Hospital [facility] What to do if you have Problems For any increased pain, shortness of breath, bleeding, nausea or vomiting, chestpain, or any unexpected problems, contact your Primary Care Provider. Call [facility] ([phone]) or report tothe closest Emergency Room. Call 911 if necessary. 02/15/25 1438 Cosigner Signature (if applicable): CC: Dr. Candelario Santana MD ~ Signed [facility]06-26-2025 Radiology Diagnostic study note [facility] Imaging Services [address] [place], [place] [id number] Femur Min 2 Views MR#: [id number] Acct: [id number] Name: SHASHI OSWALD Rep #: [id number] : 1945 From: Joya Vazquez MD PCP: Dr. Candelario Santana MD Status: PRE E R Study:Femur Min 2 Views Date of Exam: Exam# [id number] Ordering Dr: Nathan Cano DO EXAM: XR Left Femur, 2 Views CLINICAL INDICATION: FALL TECHNIQUE: Frontal and lateral views of the left femur. COMPARISON: No relevant prior studies available. FINDINGS: BONES/JOINTS: Comminuted impacted left intertrochanteric fracture. No dislocation. SOFT TISSUES: Soft tissue swelling. RAD/Femur Min 2 Views IMPRESSION: Comminuted impacted left intertrochanteric fracture. Reading Location: [facility] CC: Dr. Candelario Santana MD; Dr. Abdirashid Cano DO ~ Pelletizer: Signed [facility]06-26-2025 Radiology Diagnostic study note [facility] Imaging Services [address] [place] [address] HIP, UNI W/ Pelvis 2-3 Views MR#: [id number] Acct: [id number] Name: SHASHI OSWALD Rep #: [id number] : 1945 From: Joya Vazquez MD PCP: Dr. Candelario Santana MD Status: PRE E R Study:HIP, UNI W/ Pelvis 2-3 Views Date of Ex am: 02/15/25 Exam# [id number] Ordering Dr: Nathan Cano DO EXAM: XR [...] Comminuted impacted left intertrochanteric fracture. [facility] CC: Dr. Candelario Santana MD; Dr. Abdirashid Cano DO ~ Pelletizer: Signed [facility]06-26-2025 Discharge summary Author Abdirashid Cano [facility] Note Date/Time February 15, 2025 2:40 pm [facility] Medical Records Department [address] [place] [address] Emergency Department Summary 02/15/25 MR#: [id number] Acct: [id number] Name: SHASHI OSWALD Rep #:[id number] : 1945 79 From: Abdirashid Cano DO [...] up she came in by EMS today. [facility] Medical History Wears glasses Rash Thyroid disease [...] % (Auto) 50.2 Lymph % (Auto) 38.6 [place] % (Auto) 8.7 Eos % (Auto) 1.8 Baso % (Auto) 0.4 Absolute Neuts (auto) 4.6 Absolute Lymphs (auto) 3.52 Nucleated RBC % 0 Urine Color Straw Urine Clarity Clear Urine pH 6.5 Ur Specific Baltic 1.010 Urine Protein 30 H Urine Glucose (UA) Normal Urine Ketones 15 H Urine Occult Blood 10 H Urine Nitrite Negative Urine Bilirubin Negative Urine Urobilinogen 8 H Ur Leukocyte Esterase Negative Radiography Diagnostic Testing: Clinical Impression(s) from Imaging Studies Femur X-Ray 02/15/25 13:40 IMPRESSION: Comminuted impacted left intertrochanteric fracture. Reading Location: [facility] Hip/Pelvis X-Ray 02/15/25 13:40 IMPRESSION: Comminuted impacted left intertrochanteric fracture. Reading Location: [facility] Discharge Plan Triage Chief Complaint: Lower Extremity Injury ED Provider: Abidrashid aCno Dx/Rx/DC Orders Clinical Impression: Fall, Hip fracture Prescriptions: No Action losartan 50 mg tablet 50 mg PO DAILY carbidopa-levodopa 25-100 mg tablet 1 tab PO TID Primary Care Provider: Candelario Santana Chi Referrals: Candelario Santana Chi, MD [Primary Care Provider] - Print Language: Emirati Disposition Disposition: Acute Care Hospital [facility] What to do if you have Problems For any increased pain, shortness of breath, bleeding, nausea or vomiting, chestpain, or any unexpected problems, contact your Primary Care Provider. Call [facility] ([phone]) or report to the closest Emergency Room. Call 911 if necessary. 02/15/25 1438 <Electronically signed by Abdirashid Cano DO> Cosigner Signature (if applicable): CC: Dr. Candelario Santana MD ~ Signed [facility] Work Phone: 1(330) 229-155204-04-2023 History and physical note Author Antony Tran [facility] November 24, 2022 12:29pm Note Date/Time November 24, 2022 12:2 9pm [facility] Medical Records Department [address] [place] [address] History & Physical Exam 11/24/22 1229 MR#: [id number] Acct: [id number] Name: SHASHI OSWALD Rep #:[id number] : 1945 77 From: Antony Tran DO PCP: Dr. Candelario Santana MD Status:REG S DC Location: [place] [address]- History and Physical Date of Admission: 11/24/22 77 F who presents to the office today for Follow up visit. Shashi established with this clinic through hospitalization at [facility]. She presented to [facility] ED 03.20.22with abdominal pain in the [...] Appearance: average body habitus and well nourished [facility] Head: normal to inspection Ears: hearing [...] Affect: normal affect Quality Reporting Tobacco Screening ([facility] 138) Smoking Status: Never smoker Assessment and [...] Candelario Santana MD; Antony Tran DO~ Signed [facility] Work Phone: 1(447) 571-396004-04-2023 Procedure [facility]23 [facility] information available[facility] Work Phone: Evaluation note* Diagnosis Onset Date Resolution Status Acute gallstone pancreatitis acute Choledocholithiasis acute Pancreatitis acute UTI (urinary tract infection) acute [facility] Work Phone: Evaluation note* Diagnosis Onset Date Resolution Status Acute gallstone pancreatitis resolved Choledocholithiasis resolved Pancreatitis resolved UTI (urinary tract infection) resolved [facility] Work Phone: evaluation note* Diagnosis Onset Date Resolution Status Acute gallstone pancreatitis resolved Choledocholithiasis resolved Pancreatitis resolved UTI (urinary tract infection) resolved Bronchitis acute Choledocholithiasis acute [facility] Work Phone: Evaluation note* Diagnosis Onset Date Resolution Status Bronchitis acute Choledocholithiasis acute Bronchitis acute Choledocholithiasis acute [facility] Work Phone: Evaluation note* Diagnosis Onset Date Resolution Status Bronchitis acute Choledocholithiasis acute [facility] Work Phone: Evaluation note* Diagnosis Onset Date Resolution Status Bronchitis acute Bronchitis acute Constipation chronic [facility] Work Phone: Evaluation note* Diagnosis Onset Date Resolution Status Bronchitis acute Constipation chronic [facility] Work Phone: Evaluation note* Diagnosis Onset Date Resolution Status Admit Date Fall acute February 15 2:56pm Hip fracture acute February 15 025 2:56pm [facility] Work Phone: History and physical note Author Lakeshia Mas [facility] Note Date/Time February 15, 2025 3:05 pm [facility] Medical Records Department [address] [place] [address] H&P Exam - Hospitalist 02/15/25 1456 MR#: [id number] Acct: [id number] Name: SHASHI OSWALD Rep #:[id number] : 1945 79 From: Lakeshia Mas MD PCP: Dr. Candelario Santana MD Status:REG E R Location: ED HPI - General General Date of Admission: 02/15/25 Date of Service: 02/15/25 Chief Complaint: Left hip fracture HPI Narrative SHASHI OSWALD, is a 79-year-old female history of diabetes, hypertension, hypothyroidism presented to [facility] ED 02/15/2025 with inability to walk. She [...] up she called EMS and presented [facility]. On arrival in the ED patient [...] has no other new or acute complaints [facility] Medical History Wears glasses Rash [...] % (Auto) 50.2, Lymph % (Auto) 38.6, [place]% (Auto) 8.7, Eos % (Auto) 1.8, Baso [...] Clarity Clear, Urine pH 6.5, Ur Specific [place] 1.010, Urine Protein 30 H, Urine Glucose (UA) Normal, Urine Ketones 15 H, Urine Occult Blood 10 H, Urine Nitrite Negative, Urine Bilirubin Negative, Urine Urobilinogen 8 H, Ur Leukocyte Esterase Negative Imaging Radiology Impression Femur X-Ray 02/15/25 13:40 IMPRESSION: Comminuted impacted left intertrochanteric fracture. Reading Location: [facility] Hip/Pelvis X-Ray 02/15/25 13:40 IMPRESSION: Comminuted impacted left intertrochanteric fracture. Reading Location: [facility] Assessment & Plan Assessment/Plan (1) Hip fracture: [...] Mas MD Charges/Coding Visit Charges Inpatient E&M: 92010 Init Hosp L2 02/15/25 2797 <Electronically signed by Lakeshia Mas MD> Cosigner Signature (if applicable): CC: Dr. Lakeshia Mas MD; Dr. Candelario Santana MD~ Signed [facility] Work Phone: Hospital Discharge instructionsAdditional Instructions 1. [...] was negative for DVT. Date of Discharge: [facility]/25[facility] Work Phone: Hospital Discharge instructionsAdditional Instructions [facility]: Reason for referral (narrative)No reason for referral information [facility] Work [facility]: Summary Purpose Family History No [...] No May 12, 2020 4:41am Power of Centrifugal Separator No April 4:41am Advance Directive Response Recorded Date/ Time Living Will No March 20, 2022 2:13am Power of Centrifugal Separator No March 20 2:13am Advance Directive Response Recorded Date/ Time Living Will No March 20, 2022 6:32am Power of Centrifugal Separator No March 20 6:32am Advance Directive Response Recorded Date/ Time Living Will No March 20, 2022 5:32am Power of Centrifugal Separator No March 20 5:32am Advance Directive Response Recorded Date/ Time Living Will No November 20, 2022 12:16pm Power of Centrifugal Separator No November 20 12:16pm Advance Directive Response Recorded Date/ Time Living Will No November 20, 2022 11:16am Power of Centrifugal Separator No November 20 11:16am Advance Directive Response Recorded Date/ Time Do you have a Healthcare Power of Centrifugal Separator? No February 15, 2025 1:15pm Advance Directive Response Recorded Date/ Time Do you have a Healthcare Power of Centrifugal Separator? No February 15, 2025 4:04pm Advance Directive Response Recorded Date/ Time Do you have a Healthcare Power of Centrifugal Separator? No February 15, 2025 4:04pm Do you have a Healthcare Power of Centrifugal Separator? No February 22, 2025 6:07pm Advance Directive Response Recorded Date/ Time Do you have a Healthcare Power of Centrifugal Separator? No February 15, 2025 4:04pm Do you have a Healthcare Power of Centrifugal Separator? No February 22, 2025 6:07pm Do you have a Healthcare Power of Centrifugal Separator? No March 18, 2025 10:24am Chief Complaint [...] section and content) DATE CREATED AUTHOR 02/08/2018 [employer] DATE CREATED AUTHOR AUTHOR'S ORGANIZ ATION 02/16/2018 [employer] DATE CREATED AUTHOR AUTHOR'S ORGANIZ ATION 02/16/2018 [facility] DATE CREATED AUTHOR AUTHOR'S ORGANIZ ATION 07/05/2025 [facility] Goals (unrecognized section and content) Goals [...] t: February 16, 2025 Dr. Baldev Berry , DO Other Provider Active Star t: February 16, 2025 Team Status: Active Member Role/Relationship Status Dates Dr. Candelario Santana MD Primary Care Provider Active Start: February 17, 2025 Dr. Abdirashid Cano DO Referring Provider Active Start: February 17, 2025 Dr. Abdirashid Cano , Emergency Provider Active Start: February 17, 2025 Dr. Lakeshia Mas MD Admit Provider Active Star t: February 17, 2025 Dr. Lakeshia Mas MD Other Provider Active Star t: February 17, 2025 Dr. Matt Chacon MD Other Provider Active Star t: February 17, 2025 Dr. Gia Owusu DO Attending Provider Active S tart: February 17, 2025 Dr. Gia Owusu , Other Provider Active Start : February 17, 2025 Dr. Baldev Berry , DO Other [...] S tart: February 19, 2025 Dr. Gia Umer , DO Other Provider Active Start : [...] February 20, 2025 Dr. Gia Owusu , Attending Provider Active S tart: February 20, [...] February 21, 2025 Dr. Abdirashid Cano , Emergency Provider Active Start: February 21, 2025 Dr. Lakeshia Mas MD Admit Provider Active Star t: February 21, 2025 Dr. Lakeshia Mas MD Other Provider Active Star t: February 21, 2025 Dr. Matt Chacon MD Other Provider Active Star t: February 21, 2025 Dr. Gia Owusu , Attending Provider Active S tart: February 21, 2025 Dr. Gia Owusu , Other Provider Active Start : February 21, [...] 17, 2025 Dr. Abdirashid Cano , DO Referring Provider Active Start: February 17, [...] t: February 17, 2025 Dr. Gia Owusu , DO Other [...] tart: February 18, 2025 Dr. Gia Owusu , Other Provider Active Start : February 18, [...] End: March 09, 2025 Dr. Katie Bah , DO Referring [...] February 23, 2025 Dr. Katie Bah , Other Provider Active Start: February 23, 2025 [...] Provider Active Start: February 28, 2025 Dr. Lizet Sementi , DO Admit Provider Active Start: February 28, 2025 Dr. Katie Bah , DO Attending Provider Act luna Start: February 28, 2025 Dr. Katie Bah , DO Referring Provider Act luna Start: February 28, 2025 Dr. Katie Bah , Other Provider Active Start: February 28, 2025 Team Status: Active Member Role/Relationship Status Dates Dr. Candelario Santana MD Primary Care Provider Active Start: March 01, 2025 Dr. Katie Bah , DO Admit Provider Active Start: March 01, 2025 Dr. Katie Bah , DO Attending Provider Act luna Start: March 01, 2025 Dr. Katie Bah , DO Referring Provider Act luna Start: March 01, 2025 Dr. Katie Bah , DO Other Provider Active Start: March 01, 2025 Team Status: Active Member Role/Relationship Status Dates Dr. Candelario Santana MD Primary Care Provider Active Start: March 01, 2025 Dr. Baldev Kaba MD Attending Provider Active S tart: March 01, 2025 Team Status: Active Member Role/Relationship Status Dates Dr. Candelario Santana MD Primary Care Provider Active Start: March 05, 2025 Dr. Katie Bah , Admit Provider Active Start: March 05, 2025 [...] 08, 2025 Dr. Katie Bah , DO Admit Provider Active Start: March 08, [...] February 26, 2025 Dr. Katie Bah , Admit Provider Active Start: February 26, 2025 Dr. Katie Bah , DO Attending Provider Act luna Start: February 26, 2025 Dr. Katie Bah , Other Provider Active Start: February 26, 2025 Team Status: Active Member Role/Relationship Status Dates Dr. Candelario Santana MD Primary Care Provider Active Start: February 28, 2025 Dr. Katie Bah , Admit Provider Active Start: February 28, 2025 Dr. Katie Bah , DO Attending Provider Act luna Start: February 28, 2025 Dr. Katie Bah , DO Other Provider Active Start: February 28, [...] BE BASED ON THE PRIMARY CLINICAL RECORDS. [facility] [employer] [facility]. provides no warranty or guarantee of the accuracy or completeness of information in this document.
[2025-07-08 15:12] VITALS: BP 103/49; PULSE 63; RESP 13; TEMP 35.8; O2SAT 100
[2025-07-08 15:25] VITALS: BMI 20.4
--- NOTE | 2025-07-08 16:28 | PCM.HP.STD ---
HPI - General General Date of Admission: 07/08/25 Date of Service: 07/09/25 Chief Complaint: Here for rehabilitation. HPI Narrative HEATHER OSWALD, is a 80 F who presents [ ] 07/02/2025 [facility] ED lower extremity injury. Right hip pain, often wanders, fell. Right hip pain after fall, does not want to walk. May have hit head, on Eliquis. Morphine, Zofran given. X-ray hip, pelvis negative for fracture, negative for dislocation. CT brain negative, UA c/w UTI, urine culture sent, Ceftriaxone IV given. 07/03/2025 Admit [facility]. PT/OT/CM for debility. Ceftriaxone IV for UTI, urine culture pending. 07/03/2025 Dysarthria, Facial droop. NIHSS q6, MRI brain to evaluate for stroke. 07/03/2025 Echo mild concentric LVH. EF 70%. LA mildly enlarged. Severe mitral valve regurgitation. Trivil mitral valve regurgitation. 07/03/2025 Frail, confused. MRI brain right thalamic infarct, acute versus subacute. CTA head/neck bilateral high grade stenosis, consult Vascular surgery. Aspirin, high intensity statin for stroke. PT/OT/CM. 07/04/2025 Lethargy, repeat CT brain, check ABG, check ammonia level. 07/04/2025 CT brain okay, ABG noreen. Lactulose ordered for mildly elevated ammonia. 07/04/2025 Carotid duplex severe right carotid artery stenosis, mild left carotid artery stenosis. 07/04/2025 Vascular recommends Aspirin, Statin. Consider right carotid artery surgery as outpatient. 07/04/2025 Lethargic, ammonia 65 to 82.1 Increase Lactulose, check liver function tests, check liver ultrasound, check hepatic panel for high ammonia level. PT/OT/CM. 07/05/2025 More alert today, no complaints. Aspirin, Statin for stroke. Outpatient vascular to consider surgery for right carotid artery stenosis. Ammonia improved to 44, Encephalopathy improved. Ceftriaxone IV for E. Coli, K. Pneumoniae urinary tract infection. PT/OT for SNF, LTC placement, son unable to care for her at home. 07/06/2025 Drowsy, arousable, room air. Ammonia 46, LFT's normal. PT/OT for TCU. 07/07/2025 Alert, sitting in chair. Titrate Lactulose to 2-3 stools per day. 07/08/2025 Admit to TCU with debility, here for rehabilitation, strengthening, disposition to be determined. Upon arrival, Heather fell, hit head, developed bleeding hematoma of head, send to [facility] ED for evaluation. [facility] Medical History Parkinson's disease Hypothyroidism Cognitive dysfunction History of hemorrhoids Murmur, cardiac Hyperlipemia Diabetes mellitus, type 2 High total serum IgA Pre-syncope Tachycardia Elevated troponin Choledocholithiasis Rheumatoid arthritis Kidney stones Asthma Irregular heart beat Migraines Wears glasses Arthritis Restless legs Syncope Dietary restriction Non-smoker Leg cramps Chronic anemia Hypertension Home Medications Medication Instructions Recorded Last Taken Type carbidopa 25 mg-levodopa 100 mg 1 tab PO TID parkinson 02/15/25 07/08/25 History tablet acetaminophen 500 mg tablet 1,000 mg (2 x 500 mg) PO Q8 pain 02/21/25 07/08/25 Rx #0 tabs ergocalciferol (vitamin D2) 1,250 1,250 mcg PO Q7D supplement #0 caps 02/21/25 Unknown Rx mcg (50,000 unit) capsule (Vitamin D2) calcium carbonate 500 mg (2.5 x 200 mg calcium (500 03/08/25 07/08/25 Rx mg)) PO TIDCM supplement #1 TAB diclofenac sodium 1 % topical gel 2 g topical BID pain #100 grams 03/08/25 07/08/25 Rx (Voltaren Arthritis Pain) levothyroxine 25 mcg tablet 25 mcg PO DAILY@0600 thyroid #1 TAB 03/08/25 07/08/25 Rx melatonin 3 mg tablet 3 mg PO QHS sleep 04/11/25 07/07/25 History multivitamin 1 tab PO QAM supplement 04/11/25 07/08/25 History aspirin 81 mg tablet 81 mg PO DAILY cardiac health #30 07/08/25 Unknown Rx tabs atorvastatin 40 mg tablet (Lipitor) 40 mg PO DAILY cardiac health #30 07/08/25 Unknown Rx tabs cefdinir 300 mg capsule 300 mg PO Q12 infection #5 caps 07/08/25 07/08/25 Rx lactulose 10 gram/15 mL oral 30 ml PO TID high amonia #3,000 mL 07/08/25 Unknown Rx solution Allergy/AdvReac Type Severity Reaction Status Date / Time Penicillins Allergy Intermediate Hives Verified 07/08/25 16:41 Family History Father Myocardial infarction Hypertension Heart disease Sister Breast cancer Mother CVA (cerebral vascular accident) Surgical History S/P CABG (coronary artery bypass graft) Status post hip surgery History of open reduction and internal fixation (ORIF) procedure Hx of right cataract extraction Hx of left cataract extraction Hx of esophagogastroduodenoscopy Hx of colonoscopy History of ERCP S/P tubal ligation History of thoracic surgery H/O thyroidectomy History of cholecystectomy Hx of appendectomy Social History household members: children and other details: son Stoney lives with her. Smoking Status: Never smoker alcohol intake: never substance use type: does not use what type of physical activity do you participate in: none Vital Signs Vital Signs Vital Signs: 07/08/25 15:12 07/08/25 15:28 Temperature 96.5 F L Temperature Source Temporal Pulse Rate 63 Pulse Rhythm Regular Pulse Strength Normal (2+) Respiratory Rate 13 Respiratory Effort Normal Non-Labored Respiratory Depth Normal Respiratory Pattern Normal Blood Pressure 103/49 L Blood Pressure Mean 67 Blood Pressure Source Monitor Blood Pressure Position Semi-Fowlers Blood Pressure Location Left Arm Pulse Ox 100 Oxygen Delivery Method Room Air Room Air Weight Weight: 48.988 kg Body Mass Index (BMI) 20.4 Assessment & Plan Assessment/Plan (1) Debility: (2) UTI (urinary tract infection): (3) Stroke: (4) Hepatic encephalopathy: (5) Hyperammonemia: (6) Stenosis of right carotid artery: (7) Osteoporosis: QUALIFIERS: Osteoporosis type: age-related Presence of current pathological fracture: without current pathological fracture Qualified Code(s): M81.0 - Age-related osteoporosis without current pathological fracture (8) Essential (primary) hypertension: (9) Hypothyroidism: QUALIFIERS: Hypothyroidism type: acquired Qualified Code(s): E03.9 - Hypothyroidism, unspecified (10) Parkinson's disease: QUALIFIERS: Dyskinesia presence: without dyskinesia Fluctuating manifestations: unspecified whether manifestations fluctuate Qualified Code(s): G20.A1 - Parkinson's disease without dyskinesia, without mention of fluctuations (11) Parkinson's disease dementia: (12) Atrial fibrillation: PLAN: Plan 80 year old female with below past medical history hospitalized for urinary tract infection, complicated by stroke, hepatic encephalopathy, right carotid artery stenosis, admitted to TCU with debility, here for rehabilitation, strengthening, prior to disposition determination. Debility - PT/OT. Dysphagia - ST. Pain - Tylenol 1000mg q8. Bowel - senna/colace 1 tablet bid. Adult immunization - Administer pneumonia vaccine, covid vaccine, flu vaccine as appropriate. DVT prophylaxis - Lovenox 40mg sc daily. Fall/bleeding scalp hematoma - Send to [facility] ED for evaluation. Ostearthritis - Arthritis compound 1 click topical bid. Stroke - Aspirin 81mg daily. Atrial fibrillation - hold anticoagulation, high risk of falls. Hyperlipidemia - Atorvastatin 40mg qhs. Indigestion - TUMS 500mg tidcm. Parkinson Disease - Sinemet 25/100mg tid. E. Coli/K. Pneumoniae UTI - Cefdinir 300mg po bid thru 07/12/2025. Hepatic encephalopathy - Lactulose 20gm tid. Hypothyroidism - Levothyroxine 25mcg daily. Insomnia - Melatonin 3mg qhs. Skin irritation - Calmoseptine topical bid. Tinea Corporis - Nystatin powder topical bid. NO REVIEW OF SYSTEMS OR PHYSICAL EXAM BECAUSE PATIENT WAS NOT SEEN.
--- NOTE | 2025-07-08 17:00 | NURSING ---
LEGAL DIRECTOR found patient down on floor of room. Alerted nurse. This nurse and RN entered room and noted pt laying on back on floor next to bed with feet facing the door, with blood on head and large hematoma on forehead. complaints of dizziness or vision changes. C/O pain in head and back. Call placed to MD and verbal order given to send to ED. Report given to ED.
--- NOTE | 2025-07-09 07:27 | DS.PCM_ITS ---
Providers Date of Admission: 07/08/25 Primary Care Physician: Dr. Candelario Santana MD Reason For Visit: CVA Diagnosis Discharge Diagnosis (1) Debility: Status: Acute Code(s): R53.81 - Other malaise (2) UTI (urinary tract infection): Status: Acute Code(s): N39.0 - Urinary tract infection, site not specified (3) Stroke: Status: Acute Code(s): I63.9 - Cerebral infarction, unspecified (4) Hepatic encephalopathy: Status: Acute Code(s): K76.82 - Hepatic encephalopathy (5) Hyperammonemia: Status: Acute Code(s): E72.20 - Disorder of urea cycle metabolism, unspecified (6) Stenosis of right carotid artery: Status: Acute Code(s): I65.21 - Occlusion and stenosis of right carotid artery (7) Osteoporosis: Status: Suspected Code(s): M81.0 - Age-related osteoporosis without current pathological fracture Qualifiers: Osteoporosis type: age-related Presence of current pathological fracture: without current pathological fracture Qualified Code(s): M81.0 - Age- related osteoporosis without current pathological fracture (8) Essential (primary) hypertension: Status: Acute Code(s): I10 - Essential (primary) hypertension (9) Hypothyroidism: Status: Acute Code(s): E03.9 - Hypothyroidism, unspecified Qualifiers: Hypothyroidism type: acquired Qualified Code(s): E03.9 - Hypothyroidism, unspecified (10) Parkinson's disease: Status: Acute Code(s): G20.A1 - Parkinson's disease without dyskinesia, without mention of fluctuations Qualifiers: Dyskinesia presence: without dyskinesia Fluctuating manifestations: unspecified whether manifestations fluctuate Qualified Code(s): G20.A1 - Parkinson's disease without dyskinesia, without mention of fluctuations (11) Parkinson's disease dementia: Status: Acute Code(s): G20.A1 - Parkinson's disease without dyskinesia, without mention of fluctuations; F02.80 - Dementia in other diseases classified elsewhere, unspecified severity, without behavioral disturbance, psychotic disturbance, mood disturbance, and anxiety (12) Atrial fibrillation: Status: Acute Code(s): I48.91 - Unspecified atrial fibrillation Plan 80 year old female with below past medical history hospitalized for urinary tract infection, complicated by stroke, hepatic encephalopathy, right carotid artery stenosis, admitted to TCU with debility, here for rehabilitation, strengthening, prior to disposition determination. * Debility - PT/OT. * Dysphagia - ST. * Pain - Tylenol 1000mg q8. * Bowel - senna/colace 1 tablet bid. * Adult immunization - Administer pneumonia vaccine, covid vaccine, flu vaccine as appropriate. * DVT prophylaxis - Lovenox 40mg sc daily. * Fall/bleeding scalp hematoma - Send to [facility] ED for evaluation. * Ostearthritis - Arthritis compound 1 click topical bid. * Stroke - Aspirin 81mg daily. * Atrial fibrillation - hold anticoagulation, high risk of falls. * Hyperlipidemia - Atorvastatin 40mg qhs. * Indigestion - TUMS 500mg tidcm. * Parkinson Disease - Sinemet 25/100mg tid. * E. Coli/K. Pneumoniae UTI - Cefdinir 300mg po bid thru 07/12/2025. * Hepatic encephalopathy - Lactulose 20gm tid. * Hypothyroidism - Levothyroxine 25mcg daily. * Insomnia - Melatonin 3mg qhs. * Skin irritation - Calmoseptine topical bid. * Tinea Corporis - Nystatin powder topical bid. NO REVIEW OF SYSTEMS OR PHYSICAL EXAM BECAUSE PATIENT WAS NOT SEEN. Medications at Discharge Home Medications carbidopa 25 mg-levodopa 100 mg tablet 1 tab PO TID parkinson 02/15/25 acetaminophen 500 mg tablet 1,000 mg (2 x 500 mg) PO Q8 pain #0 tabs 02/21/25 ergocalciferol (vitamin D2) 1,250 mcg (50,000 unit) capsule (Vitamin D2) 1,250 mcg PO Q7D supplement #0 caps 02/21/25 calcium carbonate 500 mg (2.5 x 200 mg calcium (500 mg)) PO TIDCM supplement #1 TAB 03/08/25 diclofenac sodium 1 % topical gel (Voltaren Arthritis Pain) 2 g topical BID pain #100 grams 03/08/25 levothyroxine 25 mcg tablet 25 mcg PO DAILY@0600 thyroid #1 TAB 03/08/25 melatonin 3 mg tablet 3 mg PO QHS sleep 04/11/25 multivitamin 1 tab PO QAM supplement 04/11/25 aspirin 81 mg tablet 81 mg PO DAILY cardiac health #30 tabs 07/08/25 atorvastatin 40 mg tablet (Lipitor) 40 mg PO DAILY cardiac health #30 tabs 07/08/25 cefdinir 300 mg capsule 300 mg PO Q12 infection #5 caps 07/08/25 lactulose 10 gram/15 mL oral solution 30 ml PO TID high amonia #3,000 mL 07/08/25 Hospital Course Operations None Procedures None Summary of Care Provided Minutes Spent on Discharge: 15 Hospital Course: 80 year old female with below past medical history hospitalized for urinary tract infection, complicated by stroke, hepatic encephalopathy, right carotid artery stenosis, admitted to TCU with debility, here for rehabilitation, strengthening, prior to disposition determination. 07/08/2025 Upon arrival to TCU, patient fell, sent to [facility] ED. Patient suffered C2 cervical fracture. Discharge to [facility] 07/08/2025. Weight / BMI Weight Weight: 48.988 kg Body Mass Index (BMI) 20.4 D/C Instructions Discharge Activity: Return to Normal Activity, May Shower and Use Walker Call your doctor if you observe: Fever of 101 or Higher, Inability to urinate, Inability to have a bowel movement, Shortness of breath, Dizziness, Fainting spells, Swelling in the ankles, Chest pain and Uncontrolled pain DC O2, CPAP, BIPAP Needs Home O2 Discharge instructions: No Additional Instructions: Discharge to [facility] 07/08/2025. Meaningful Use Info Meaningful Use Meaningful Use Diagnoses (Choose all that apply): Ischemic CVA CVA Therapy Assessed for PT,OT and/or ST?: Yes Ischemic Stroke Antithrombotic order at d/c?: Yes Dx of Atrial fib/flutter?: No Statins at discharge?: Yes Primary Dx Acute Ischemic CVA?: Yes Discharge Plan Admission Admit Date/Time: 07/08/25 14:52 Primary Reason for Your Visit: Debility. Attending Provider: Candelario Santana Chi Primary Care Provider: Candelario Santana Chi Instructions Additional Instructions / Restrictions: Discharge to [facility] 07/08/2025. Discharge Orders/Prescriptions Prescriptions: No Action melatonin 3 mg tablet 3 mg PO QHS multivitamin Tablet 1 tab PO QAM carbidopa-levodopa 25-100 mg tablet 1 tab PO TID acetaminophen 500 mg Tablet 1,000 mg PO Q8 Qty: 0 0RF ergocalciferol (vitamin D2) [Vitamin D2] 1,250 mcg (50,000 unit) Capsule 1,250 mcg PO Q7D Qty: 0 0RF levothyroxine 25 mcg Tablet 25 mcg PO DAILY@0600 Qty: 1 0RF calcium carbonate 200 mg calcium (500 mg) Tablet,Chewable 500 mg PO TIDCM Qty: 1 0RF diclofenac sodium [Voltaren Arthritis Pain] 1 % gel 2 g topical BID Qty: 100 0RF Rx Instructions: apply BID to both knees cefdinir 300 mg Capsule 300 mg PO Q12 Qty: 5 0RF aspirin 81 mg tablet 81 mg PO DAILY Qty: 30 2RF atorvastatin [Lipitor] 40 mg tablet 40 mg PO DAILY Qty: 30 2RF lactulose 10 gram/15 mL solution 30 ml PO TID Qty: 3000 1RF Rx Instructions: titrate until 2-3 loose stools daily Referrals / Follow Up: Candelario Santana Chi, MD [Primary Care Provider, Geriatrics] Disposition Disposition (needs filled in before D/C Order can be placed): [facility]
== END 2025-07-08 17:10 | disposition short-term general hospital (02) | DRG 690 ==
PROVIDERS: Admitting Provider Family Medicine Geriatric Medicine; PCP Family Medicine Geriatric Medicine; Visit Provider Family Medicine Geriatric Medicine
DX: N39.0 Urinary tract infection, site not specified (principal); E72.20 Disorder of urea cycle metabolism, unspecified; I69.322 Dysarthria following cerebral infarction; B35.4 Tinea corporis; B96.1 Klebsiella pneumoniae [K. pneumoniae] as the cause of diseases classified elsewhere; E11.9 Type 2 diabetes mellitus without complications; K76.82 Hepatic encephalopathy; I48.91 Unspecified atrial fibrillation; G20.A1 Parkinson's disease without dyskinesia, without mention of fluctuations; F02.80 Dementia in other diseases classified elsewhere, unspecified severity, without behavioral disturbance, psychotic disturbance, mood disturbance, and anxiety; E89.0 Postprocedural hypothyroidism; I10 Essential (primary) hypertension; S12.100A Unspecified displaced fracture of second cervical vertebra, initial encounter for closed fracture; I69.392 Facial weakness following cerebral infarction; E78.5 Hyperlipidemia, unspecified; S01.01XA Laceration without foreign body of scalp, initial encounter; K30 Functional dyspepsia; W19.XXXA Unspecified fall, initial encounter; B96.20 Unspecified Escherichia coli [E. coli] as the cause of diseases classified elsewhere; G47.00 Insomnia, unspecified; Z79.82 Long term (current) use of aspirin; M81.0 Age-related osteoporosis without current pathological fracture; Z79.890 Hormone replacement therapy; Z79.899 Other long term (current) drug therapy; Y92.129 Unspecified place in nursing home as the place of occurrence of the external cause

== ENCOUNTER 2025-07-08 16:38 | Emergency (ER) | payer MEDICARE, SELFPAY ==
[2025-07-08] VITALS (29 sets, daily range): BP systolic 111–183; BP diastolic 47–120; PULSE 72–85; RESP 10–19; TEMP 37; O2SAT 95–100; BMI 22.7
--- NOTE | 2025-07-08 17:11 | CT_ITS ---
PROCEDURE: SPINE CERVICAL WITHOUT CONTRAS 07/08/2025 REASON FOR EXAM: HEAD TRAUMA TECHNIQUE: Procedure Code: CTSPC Modality: CT Procedure: SPINE CERVICAL WITHOUT CONTRAS Coronal and Sagittal reconstruction series were provided. One or more dose reduction techniques were used (e.g., Automated exposure control, adjustment of the mA and/or kV according to patient size, use of iterative reconstruction technique. FINDINGS: Positive for fracture of the right side of the C2 vertebral body which extends towards the foramen transversarium. Can not exclude vascular injury. Additional fracture of the skull base on the right on image 31 of the axial images. The C2 fracture is on image 53. These can also be identified on the coronal images. There is normal alignment without compression deformity. CT/Spine Cervical without Contras IMPRESSION: Fractures of the occipital condyle on the right and of the C2 vertebral body al so on the right. The C2 fracture extends toward the foramen transversarium. Can not exclude arterial injury. The results were discussed by the referring provider with me by telephone at 7:55 p.m. Reading Location[facility]
--- NOTE | 2025-07-08 17:11 | CT_ITS ---
PROCEDURE: BRAIN/HEAD WITHOUT CONTRAST 07/08/2025 REASON FOR EXAM: FALL AND FOREHEAD TRAUMA TECHNIQUE: Procedure Code: CTBR Modality: CT Procedure: BRAIN/HEAD WITHOUT CONTRAST Coronal and Sagittal reconstruction series were provided. One or more dose reduction techniques were used (e.g., Automated exposure control, adjustment of the mA and/or kV according to patient size, use of iterative reconstruction technique. RADIATION DOSE SUMMARY: mGycm COMPARISON: T11-12 25 FINDINGS: Mild atrophy. Prominent left frontal soft tissue swelling. Periventricular chronic small-vessel ischemic change. No intracranial mass or hemorrhage. Sinuses clear. No skull fracture. CT/Brain/Head without Contrast IMPRESSION: Left frontal soft tissue swelling and scalp hematoma without fracture. Reading Location: [facility]
--- NOTE | 2025-07-08 17:16 | EDS_ITS ---
HPI HPI - Fall History of Present Illness Chief Complaint: Fall Informant: patient and family Occured/Mechanism Occurred: Today Mechanism/Context: Yes same level fall and Yes trip Usually ambulates: Walker Pain/Injury Pain Location: head and neck Quality of Pain: Dull Current Severity: Moderate Maximum Severity: Moderate Narrative Narrative: 80-year-old female history of Parkinson's, removed from leg pretension, A-fib on Eliquis and prior thyroidectomy. She was recently admitted on the to the hospital for UTI. Failure to thrive. Unable to ambulate. She was discharged from the hospital today and transferred to the transitional care unit. She fell landing on the floor hitting her forehead causing hematoma and laceration. Was sent to the emergency department for further evaluation. Companied by family. Tetanus Immunization: Unknown Prior similar symptoms: No Recent Illness/Hospitalization: Yes PFSH PFSH Medical History Parkinson's disease Hypothyroidism Cognitive dysfunction History of hemorrhoids Murmur, cardiac Hyperlipemia Diabetes mellitus, type 2 High total serum IgA Pre-syncope Tachycardia Elevated troponin Choledocholithiasis Rheumatoid arthritis Kidney stones Asthma Irregular heart beat Migraines Wears glasses Arthritis Restless legs Syncope Dietary restriction Non-smoker Leg cramps Chronic anemia Hypertension Home Medications Medication Instructions Recorded Last Taken Type carbidopa 25 mg-levodopa 100 mg 1 tab PO TID parkinson 02/15/25 07/08/25 History tablet acetaminophen 500 mg tablet 1,000 mg (2 x 500 mg) PO Q 8 pain 02/21/25 07/08/25 Rx #0 tabs ergocalciferol (vitamin D2) 1,250 1,250 mcg PO Q7D sup plement #0 caps 02/21/25 Unknown Rx mcg (50,000 unit) capsule (Vitamin D2) calcium carbonate 500 mg (2.5 x 200 mg calcium (500 03/08/25 07/08/25 Rx mg)) PO TIDCM supplement #1 TAB diclofenac sodium 1 % topical gel 2 g topical BID pain #100 grams 03/08/25 07/08/25 Rx (Voltaren Arthritis Pain) levothyroxine 25 mcg tablet 25 mcg PO DAILY@0600 thyro id #1 TAB 03/08/25 07/08/25 Rx melatonin 3 mg tablet 3 mg PO QHS sleep 04/11/25 1 09/06/24 History multivitamin 1 tab PO QAM supplement 03/2407/08/25 History aspirin 81 mg tablet 81 mg PO DAILY [facility] #30 07/08/25 Unknown Rx tabs atorvastatin 40 mg tablet (Lipitor) 40 mg PO DAILY [facility] 07/08/25 Unknown Rx tabs cefdinir 300 mg capsule 300 mg PO Q12 infection #5 c aps 07/08/25 07/08/25 Rx lactulose 10 gram/15 mL oral 30 ml PO TID high am[place] #3,000 mL 07/08/25 Unknown Rx solution Allergy/AdvReac Type Severity Reaction Status Date / Time Penicillins Allergy Intermediate Hives Verified 07/08/25 16:41 Family History Father Myocardial infarction Hypertension Heart disease Sister Breast cancer Mother CVA (cerebral vascular accident) Surgical History S/P CABG (coronary artery bypass graft) Status post hip surgery History of open reduction and internal fixation (ORIF) procedure Hx of right cataract extraction Hx of left cataract extraction Hx of esophagogastroduodenoscopy Hx of colonoscopy History of ERCP S/P tubal ligation History of thoracic surgery H/O thyroidectomy History of cholecystectomy Hx of appendectomy Social History household members: children and other details: son Stoney lives with her. Smoking Status: Never smoker alcohol intake: never substance use type: does not use what type of physical activity do you participate in: none ROS ROS ED ROS Narrative Recent UTI. Constitutional Constitutional ED: Denies chills or fever(s) ENT ENT ED: Denies ear pain Cardiovascular Cardiovascular: Denies chest pain Respiratory/Chest Respiratory/Chest: Denies cough Gastrointestinal Gastrointestinal: Denies abdominal pain Genitourinary Genitourinary ED: Reports dysuria Musculoskeletal Musculoskeletal: Denies arthralgias Integumentary Denies abscess Neurologic Neurologic: Denies headache(s) Psychiatric Psychiatric: Denies anxiety Endocrine Endocrinology: Denies polydipsia Hematologic/Lymphatic Hematologic/Lymphatic: Reports easy bleeding, easy bruising, lymphadenopathy and other Details: On Eliquis. Allergic/Immunologic Allergic/Immunologic ED: Reports mouth swelling; Denies tongue swelling or urticaria EXAM Physical Exam Narrative Exam Narrative: 72-year-old female sitting upright in bed. Family member at bedside. Vital signs stable afebrile. H EENT exam pupils round react light. No facial trauma other than mid forehead she is hematoma small amount of blood. From falling striking her head. Posterior scalp nontender. C-spine trachea nontender she is in c-collar which will remain in place currently. Back and spine nontender. Lungs clear. Heart rate about 75 no murmur. Chest wall ribs nontender. No crepitus. No bruising. Abdomen soft nontender. Pelvic girdle intact. She is able to flex and extend both hips and knees. Dorsi plantarflexion intact. There is no deformity of either lower extremity. She can lift both arms overhead. 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 Upper extremities are nontender. Neurologically she is awake. She does answer limited questions and follows limited commands. Const Vital Signs: 07/08/25 16:38 07/08/25 16:38 07/08/25 16:38 Temperature 98.6 F Temperature Source Oral Pulse Rate 76 76 Respiratory Rate 14 14 Respiratory Effort Normal Respiratory Depth Normal Respiratory Pattern Normal Blood Pressure 176/68 H 176/68 H Blood Pressure Mean 104 104 Pulse Ox 100 100 Oxygen Delivery Method Room Air Room Air Room Air 07/08/25 17:55 07/08/25 18:00 07/08/25 18:15 Temperature Temperature Source Pulse Rate 75 73 79 Respiratory Rate 12 13 14 Respiratory Effort Respiratory Depth Respiratory Pattern Blood Pressure 173/63 H 178/56 H Blood Pressure Mean 92 88 Pulse Ox 98 Oxygen Delivery Method Room Air 07/08/25 18:30 07/08/25 18:45 07/08/25 19:00 Temperature Temperature Source Pulse Rate 76 76 78 Respiratory Rate 11 L 12 13 Respiratory Effort Respiratory Depth Respiratory Pattern Blood Pressure 183/64 H 166/88 H Blood Pressure Mean 97 114 Pulse Ox 96 100 Oxygen Delivery Method Room Air Room Air MDM MDM MDM Narrative Medical decision making narrative: 72-year-old female recently mid to the hospital for UTI and transferred to TCU she was in TCU about 3 hours and fell today has a hematoma laceration to her hairline on the front of the forehead. CT of her brain and neck will be obtained. Will clean the wound and see if it needs repaired. Tetanus will be updated if it is out of date. Patient has had labs done earlier today which I reviewed. Repeat exam around 8:15 PM no change. She has good ferry terminal supervisor strength good dorsi plantarflexion good sensation both upper and lower extremities. I instructed both her and her at bedside all of her C2 nondisplaced fracture and occipital condyle fracture. I spoke to Noemi Branham They will except there is a trauma transfer ER to ER. We are making arrangements for the transfer. Patient and her are comfortable to plan. History & Record Review Discussion w/independent historian: Patient and Family Additional record(s) reviewed:: Prior inpatient record, Prior outpatient record, Prior ED visit and Prior labs Radiography Diagnostic Testing: Clinical Impression(s) from Imaging Studies Brain CT 07/08/25 17:11 IMPRESSION: Left frontal soft tissue swelling and scalp hematoma without fracture. [facility] Cervical Spine CT 07/08/25 17:11 IMPRESSION: Fractures of the occipital condyle on the right and of the C2 vertebral body also on the right. The C2 fracture extends toward the foramen transversarium. Can not exclude arterial injury. The results were discussed by the referring provider with me by telephone at 7:55 p.m. Reading Location[facility] Procedures Lacerations Forehead scalp laceration to hairline.: Length: 2 in Depth: Sub Q Shape: Stellate Prep: Shure-Clens Laceration repair: Irrigated, Lidocaine with epi, Local, Skin sutures and Wound explored Number of Sutures/Dennard: 3 Suture Information: Ethilon, Simple and 4-0 Comment: Stellate laceration on the anterior scalp and forehead at the hairline. Local anesthetized lidocaine with epinephrine. Cleaned with Shur- Clens. Washed and irrigated with saline. Explored. Closed using 3 simple erupted 4-0 Ethilon sutures. Proper hemostasis wound closure obtained. Prior to laceration pair there was a hematoma at the site. Discharge Plan Triage Chief Complaint: Fall ED Provider: Holden Garcia Dx/Rx/DC Orders Clinical Impression: Fall, Head injury, Laceration of scalp, C2 cervical fracture, Fracture of occipital condyle, Chronic anticoagulation, History of Parkinson's disease, History of atrial fibrillation Prescriptions: No Action melatonin 3 mg tablet 3 mg PO QHS multivitamin Tablet 1 tab PO QAM carbidopa-levodopa 25-100 mg tablet 1 tab PO TID acetaminophen 500 mg Tablet 1,000 mg PO Q8 Qty: 0 0RF ergocalciferol (vitamin D2) [Vitamin D2] 1,250 mcg (50,000 unit) Capsule 1,250 mcg PO Q7D Qty: 0 0RF levothyroxine 25 mcg Tablet 25 mcg PO DAILY@0600 Qty: 1 0RF calcium carbonate 200 mg calcium (500 mg) Tablet,Chewable 500 mg PO TIDCM Qty: 1 0RF diclofenac sodium [Voltaren Arthritis Pain] 1 % gel 2 g topical BID Qty: 100 0RF Rx Instructions: apply BID to both knees cefdinir 300 mg Capsule 300 mg PO Q12 Qty: 5 0RF aspirin 81 mg tablet 81 mg PO DAILY Qty: 30 2RF atorvastatin [Lipitor] 40 mg tablet 40 mg PO DAILY Qty: 30 2RF lactulose 10 gram/15 mL solution 30 ml PO TID Qty: 3000 1RF Rx Instructions: titrate until 2-3 loose stools daily Primary Care Provider: Candelario Santana Chi Referrals: Candelario Santana Chi, MD [Primary Care Provider, Geriatrics] Print Language: Hebrew Disposition Disposition: Acute Care Hospital
--- OUTSIDE RECORDS SUMMARY | 2025-07-08 17:17 | XMS RPT_ITS | CCD ---
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 Unavailable Unavailable PROVIDER, UNKNOWN Unavailable Unavailable MAX, CANDELARIO-CHI Unavailable Unavailable Joe Hein Unavailable Unavailable PROVIDER, UNKNOWN Unavailable Unavailable Max, Candelario Chi Unavailable Unavailable REFERRING, CARYN WILLS ID Unavailable Unavailable MAX, [facility]DEL[facility]IO-[facility]I Unavailable Unavailable MAX, [facility] Unavailable Unavailable Dr. Candelario Santana Chi Primary Care Provider [phone] Eber Robles Emergency Provider Dr. Jessica Yuan Attending Provider Dr. Jessica Yuan Admit Provider Dr. Jessica Yuan Other Provider Dr. Ash Araujo Other Provider Friend, Dr. Hardy Attending Provider Dr. Ash Araujo Referring Provider Dr. Ash Araujo Attending Provider Dr. Candelario Santana Chi Primary Care Provider [phone] Eber Robles Emergency Provider Dr. Jessica [...] Provider Dr. Abdirashid Cano DO Referring Provider 1(Critical access hospital)[phone] Dr. Abdirashid Cano DO Emergency Provider Chace ALFARO, Dr. Asher Admit Provider Chace ALFARO, Dr. sAher Attending Provider Chace ALFARO, Dr. Asher Other [...] Luis ALFARO, Dr. Corona Attending Provider Prakash DURABLE MEDICAL EQUIPMENT TECHNICIAN-CMore Attending Provider Max, Candelario Chi Primary Care [...] Care Unavailable Fany Chaconag Consulting Unavailable Abdirashid Cano Referring Unavailable Gia Owusu Attending Unavailable Mas, [...] Steve Werner Attending Unavailable Max, Candelario Chi Referring Unavailable [...] Penicillins; Translations: [Penicillins] Allergy to substance 10-22-2020 [facility] Medications Current Medications Medication Drug [...] knees docusate sodium 50 mg / sennosides, mcfp 8.6 mg oral tablet (9 sources) Start: [...] sources) Long-term current use of anticoagulant; 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, [address] Basic Metabolic Profile (BMP )on 07-05-2025 BUN/CRE 37.3 RATIO High 10-20 [facility] Comment on above: Performed By: #### L 100.0100, L500.2500 ####[facility] [address] [place], [address] Calcium [Mass/Vol] 9.2 mg/dL Normal 7.6-11.0 [facility] Comment on above: Performed By: #### L 100.0100, L500.2500 ####[facility] [address] [place], [address] Chloride [Moles/Vol] 107 mmol/L Normal 98-108 [facility] Comment on above: Performed By: #### L 100.0100, L500.2500 ####[facility] [address] [place], [address] CO2 [Moles/Vol] 16.8 mmol/L Low 21.0-32.0 [facility] Comment on above: Performed By: #### L 100.0100, L500.2500 ####[facility] [address] [place], [address] Creatinine [Mass/Vol] 0.65 mg/dL Low 0.70-1.20 [facility] Comment on above: Performed By: #### L 100.0100, L500.2500 ####[facility] [address] [place], [address] ECRCL 43.73 ml/min Low 50-250 [facility] Comment on above: Performed By: #### L 100.0100, L500.2500 ####[facility] [address] [place], [address] GAP 11 Normal 5-15 [facility] Comment on above: Performed By: #### L 100.0100, L500.2500 ####[facility] [address] [place], [address] GFR/1.73 sq M.predicted among non-blacks MDRD (S/P/Bld) [Vol rate/Area] 90 mL/min/{1.73_m2} Normal >60 [facility] Comment on above: Result Comment: mL/m in/1.73m2 CKD-EPI Creatinine Equation (2020) Performed By: #### L 100.0100, L500.2500 ####[facility] [address] [place], [address] Glucose [Mass/Vol] 114 mg/dL High 70-99 [facility] Comment on above: Performed By: #### L 100.0100, L500.2500 ####[facility] [address] [place], [address] Potassium [Moles/Vol] 3.2 mmol/L Low 3.3-5.1 [facility] Comment on above: Result Comment: Hemo lysis present, Results??could be affected.?? Performed By: #### L 100.0100, L500.2500 ####[facility] [address] [place], [address] Sodium [Moles/Vol] 135 mmol/L Normal 133-145 [facility] Comment on above: Performed By: #### L 100.0100, L500.2500 ####[facility] [address] [place], [address] Urea nitrogen [Mass/Vol] 24 mg/dL High 4-19 [facility] Comment on above: Performed By: #### L 100.0100, L500.2500 ####[facility] [address] [place], [address] CBC W/Diff, Automatedon 11- Absolute Lymph 2.67 X10 3/uL Normal 0.83-4.51 [facility] Comment on above: Order Comment: REDRA W. PREVIOUS SPECIMEN REJECTED DUE TOQNS. 07/05/2542 Narinder R Erickson. Performed By: #### L 100.0100 ####[facility] [address] [place], [address] Absolute Neut 3.7 X10 3/uL Normal 2.0-7.7 [facility] Comment on above: Order Comment: REDRA W. PREVIOUS SPECIMEN REJECTED DUE TOQNS. 07/05/2542 Narinder R Erickson. Performed By: #### L 100.0100 ####[facility] [address] [place], [address] Basophils/100 WBC (Bld) 0.8 % Normal 0-1 [facility] Comment on above: Order Comment: REDRA W. PREVIOUS SPECIMEN REJECTED DUE TOQNS. 07/05/2542 Narinder R Erickson. Performed By: #### L 100.0100 ####[facility] [address] [place], [address] Eosinophils/100 WBC (Bld) 3.6 % Normal 0-5 [facility] Comment on above: Order Comment: REDRA W. PREVIOUS SPECIMEN REJECTED DUE TOQNS. 07/05/2542 Narinder R Erickson. Performed By: #### L 100.0100 ####[facility] [address] [place], [address] Erythrocyte distribution width (RBC) [Ratio] 13.2 % Normal 11.6-14.6 [facility] Comment on above: Order Comment: REDRA W. PREVIOUS SPECIMEN REJECTED DUE TOQNS. 07/05/2542 Narinder R Erickson. Performed By: #### L 100.0100 ####[facility] [address] [place], [address] Hematocrit (Bld) [Volume fraction] 30.5 % Low 37-47 [facility] Comment on above: Order Comment: REDRA W. PREVIOUS SPECIMEN REJECTED DUE TOQNS. 07/05/2542 Narinder R Erickson. Performed By: #### L 100.0100 ####[facility] [address] [place], [address] Hemoglobin (Bld) [Mass/Vol] 11.0 g/dL Low 12.0-15.0 [facility] Comment on above: Order Comment: REDRA W. PREVIOUS SPECIMEN REJECTED DUE TOQNS. 07/05/2542 Narinder R Erickson. Performed By: #### L 100.0100 ####[facility] [address] [place], [address] IG% 0.300 Normal 0.0-0.9 [facility] Comment on above: Order Comment: REDRA W. PREVIOUS SPECIMEN REJECTED DUE TOQNS. 07/05/2542 Narinder R Erickson. Result Comment: IG% - Immature Granulocytes (promyelocytes, myelocytes andmetamyelocytes) > 1% indicates that a LEFT SHIFT is Present. Performed By: #### L 100.0100 ####[facility] [address] [place], [address] Lymphocytes/100 WBC (Bld) 36.5 % Normal 19-41 [facility] Comment on above: Order Comment: REDRA W. PREVIOUS SPECIMEN REJECTED DUE TOQNS. 07/05/2542 Narinder R Erickson. Performed By: #### L 100.0100 ####[facility] [address] [place], [address] MCH (RBC) [Entitic mass] 32.4 pg High 27.0-32.0 [facility] Comment on above: Order Comment: REDRA W. PREVIOUS SPECIMEN REJECTED DUE TOQNS. 07/05/2542 Narinder R Erickson. Performed By: #### L 100.0100 ####[facility] [address] [place], [address] MCHC (RBC) [Mass/Vol] 36.1 g/dL High 32-36 [facility] Comment on above: Order Comment: REDRA W. PREVIOUS SPECIMEN REJECTED DUE TOQNS. 07/05/2542 Narinder R Erickson. Performed By: #### L 100.0100 ####[facility] [address] [place], [address] MCV (RBC) [Entitic vol] 90.0 fL Normal 81-99 [facility] Comment on above: Order Comment: REDRA W. PREVIOUS SPECIMEN REJECTED DUE TOQNS. 07/05/2542 Narinder R Erickson. Performed By: #### L 100.0100 ####[facility] [address] [place], [address] Monocytes/100 WBC (Bld) 8.5 % Normal 0-10 [facility] Comment on above: Order Comment: REDRA W. PREVIOUS SPECIMEN REJECTED DUE TOQNS. 07/05/25641 Narinder R Erickson. Performed By: #### L 100.0100 ####[facility] [address] [place], [address] Neutrophils/100 WBC (Bld) 50.3 % Normal 47-70 [facility] Comment on above: Order Comment: REDRA W. PREVIOUS SPECIMEN REJECTED DUE TOQNS. 07/05/2542 Narinder R Erickson. Performed By: #### L 100.0100 ####[facility] [address] [place], [address] Nucleated RBC (Bld) [#/Vol] 0 10*3/uL Normal 0-5 [facility] Comment on above: Order Comment: REDRA W. PREVIOUS SPECIMEN REJECTED DUE TOQNS. 07/05/2542 Narinder R Erickson. Performed By: #### L 100.0100 ####[facility] [address] [place], [address] Platelet mean volume (Bld) [Entitic vol] 9.3 fL Normal 6.2-12.0 [facility] Comment on above: Order Comment: REDRA W. PREVIOUS SPECIMEN REJECTED DUE TOQNS. 07/05/2542 Narinder R Erickson. Performed By: #### L 100.0100 ####[facility] [address] [place], [address] Platelets (Bld) [#/Vol] 202 10*3/uL Normal 150-450 [facility] Comment on above: Order Comment: REDRA W. PREVIOUS SPECIMEN REJECTED DUE TOQNS. 07/05/2542 Narinder R Erickson. Performed By: #### L 100.0100 ####[facility] [address] [place], [address] RBC (Bld) [#/Vol] 3.39 10*6/uL Low 4.2-5.4 [facility] Comment on above: Order Comment: REDRA W. PREVIOUS SPECIMEN REJECTED DUE TOQNS. 07/05/2542 Narinder R Erickson. Performed By: #### L 100.0100 ####[facility] [address] [place], [address] RDW SD 43.3 fl Normal 35.1-43.9 [facility] Comment on above: Order Comment: REDRA W. PREVIOUS SPECIMEN REJECTED DUE TOQNS. 07/05/2542 Narinder R Erickson. Performed By: #### L 100.0100 ####[facility] [address] [place], [address] WBC (Bld) [#/Vol] 7.3 10*3/uL Normal 4.4-11.0 [facility] Comment on above: Order Comment: REDRA W. PREVIOUS SPECIMEN REJECTED DUE TOQNS. 07/05/2542 Narinder R Erickson. Performed By: #### L 100.0100 ####[facility] [address] [place], [address] Absolute Neut Normal 2.0-7.7 [facility] Comment on above: Result Comment: This specimen has been REJECTED due to Laboratory criteria:Quanity Not Sufficient.[facility] has been notified of need of recollection.07/05/25640 Narinder R Erickson Performed By: #### L 100.0100, L500.2500 ####[facility] [address] [place], [address] HCT Normal 37-47 [facility] Comment on above: Result Comment: This specimen has been REJECTED due to Laboratory criteria:Quanity Not Sufficient.[facility] has been notified of need of recollection.07/05/25640 Narinder R Erickson Performed By: #### L 100.0100, L500.2500 ####[facility] [address] [place], [address] HGB Normal 12.0-15.0 [facility] Comment on above: Result Comment: This specimen has been REJECTED due to Laboratory criteria:Quanity Not Sufficient.[facility] has been notified of need of recollection.07/05/25640 Narinder R Erickson Performed By: #### L 100.0100, L500.2500 ####[facility] [address] [place], [address] MCH Normal 27.0-32.0 [facility] Comment on above: Result Comment: This specimen has been REJECTED due to Laboratory criteria:Quanity Not Sufficient.[facility] has been notified of need of recollection.07/05/25640 Narinder R Erickson Performed By: #### L 100.0100, L500.2500 ####[facility] [address] [place], [address] MCHC Normal 32-36 [facility] Comment on above: Result Comment: This specimen has been REJECTED due to Laboratory criteria:Quanity Not Sufficient.[facility] has been notified of need of recollection.07/05/25640 Narinder R Erickson Performed By: #### L 100.0100, L500.2500 ####[facility] [address] [place], [address] MCV Normal 81-99 [facility] Comment on above: Result Comment: This specimen has been REJECTED due to Laboratory criteria:Quanity Not Sufficient.[facility] need of recollection.07/05/25640 Narinder R Erickson Performed By: #### L 100.0100, L500.2500 ####[facility] [address] [place], [address] NEUT% Normal 47-70 [facility] Comment on above: Result Comment: This specimen has been REJECTED due to Laboratory criteria:Quanity Not Sufficient.[facility] has been notified of need of recollection.07/05/25640 Narinder R Erickson Performed By: #### L 100.0100, L500.2500 ####[facility] [address] [place], [address] PLT Normal 150-450 [facility] Comment on above: Result Comment: This specimen has been REJECTED due to Laboratory criteria:Quanity Not Sufficient.[facility] has been notified of need of recollection.07/05/25640 Narinder R Erickson Performed By: #### L 100.0100, L500.2500 ####[facility] [address] [place], [address] RBC Normal 4.2-5.4 [facility] Comment on above: Result Comment: This specimen has been REJECTED due to Laboratory criteria:Quanity Not Sufficient.[facility] has been notified of need of recollection.07/05/25640 Narinder R Erickson Performed By: #### L 100.0100, L500.2500 ####[facility] [address] [place], [address] RDW CV Normal 11.6-14.6 [facility] Comment on above: Result Comment: This specimen has been REJECTED due to Laboratory criteria:Quanity Not Sufficient.[facility] has been notified of need of recollection.07/05/25640 Narinder R Erickson Performed By: #### L 100.0100, L500.2500 ####[facility] [address] [place], [address] RDW SD Normal 35.1-43.9 [facility] Comment on above: Result Comment: This specimen has been REJECTED due to Laboratory criteria:Quanity Not Sufficient.[facility] has been notified of need of recollection.07/05/25640 Narinder R Erickson Performed By: #### L 100.0100, L500.2500 ####[facility] [address] [place], [address] WBC Normal 4.4-11.0 [facility] Comment on above: Result Comment: This specimen has been REJECTED due to Laboratory criteria:Quanity Not Sufficient.[facility] has been notified of need of recollection.07/05/25640 Narinder R Erickson Performed By: #### L 100.0100, L500.2500 ####[facility] [address] [place], [address] Urine Cultureon 07-05-2025 URC Normal [facility] Comment on above: Performed By: #### M 100.2200 ####[facility] [address] [place], [address] Abdomen Limitedon 07-04-2025 Abdomen Limited Normal [facility] Ammoniaon 07-04-2025 Ammonia (P) [Moles/Vol] 82.1 umol/L High [facility] Comment on above: Performed By: #### L 503.5510 ####[facility] [address] [place], [address] Ammonia (P) [Moles/Vol] 65.2 umol/L High [facility] Comment on above: Performed By: #### L 503.5510 ####[facility] [address] [place], [address] Basic Metabolic Profile (BMP )on 07-04-2025 BUN/CRE 26.7 RATIO High - [facility] Comment on above: Order Comment: Comme nts: NPO at [place] prior to lipid panel Performed By: #### L 500.4100, L500.2500 ####[facility] [address] [place], [address] Calcium [Mass/Vol] 9.2 mg/dL Normal 7.6-11.0 [facility] Comment on above: Order Comment: Comme nts: NPO at [place] prior to lipid panel Performed By: #### L 500.4100, L500.2500 ####[facility] [address] [place], [address] Chloride [Moles/Vol] 106 mmol/L Normal 98-108 [facility] Comment on above: Order Comment: Comme nts: NPO at [place] prior to lipid panel Performed By: #### L 500.4100, L500.2500 ####[facility] [address] [place], [address] CO2 [Moles/Vol] 19.4 mmol/L Low 21.0-32.0 [facility] Comment on above: Order Comment: Comme nts: NPO at [place] prior to lipid panel Performed By: #### L 500.4100, L500.2500 ####[facility] [address] [place], [address] Creatinine [Mass/Vol] 0.67 mg/dL Low 0.70-1.20 [facility] Comment on above: Order Comment: Comme nts: NPO at [place] prior to lipid panel Performed By: #### L 500.4100, L500.2500 ####[facility] [address] [place], [address] ECRCL 43.73 ml/min Low 50-250 [facility] Comment on above: Order Comment: Comme nts: NPO at [place] prior to lipid panel Performed By: #### L 500.4100, L500.2500 ####[facility] [address] [place], [address] GAP 12 Normal 5-15 [facility] Comment on above: Order Comment: Comme nts: NPO at [place] prior to lipid panel Performed By: #### L 500.4100, L500.2500 ####[facility] [address] [place], [address] GFR/1.73 sq M.predicted among non-blacks MDRD (S/P/Bld) [Vol rate/Area] 89 mL/min/{1.73_m2} Normal >60 [facility] Comment on above: Order Comment: Comme nts: NPO at [place] prior to lipid panel Result Comment: mL/m in/1.73m2 CKD-EPI Creatinine Equation (2020) Performed By: #### L 500.4100, L500.2500 ####[facility] [address] [place], [address] Glucose [Mass/Vol] 103 mg/dL High 70-99 [facility] Comment on above: Order Comment: Comme nts: NPO at [place] prior to lipid panel Performed By: #### L 500.4100, L500.2500 ####[facility] [address] [place], [address] Potassium [Moles/Vol] 3.2 mmol/L Low 3.3-5.1 [facility] Comment on above: Order Comment: Comme nts: NPO at [place] prior to lipid panel Performed By: #### L 500.4100, L500.2500 ####[facility] [address] [place], [address] Sodium [Moles/Vol] 137 mmol/L Normal 133-145 [facility] Comment on above: Order Comment: Comme nts: NPO at [place] prior to lipid panel Performed By: #### L 500.4100, L500.2500 ####[facility] [address] [place], [address] Urea nitrogen [Mass/Vol] 18 mg/dL Normal 4-19 [facility] Comment on above: Order Comment: Comme nts: NPO at [place] prior to lipid panel Performed By: #### L 500.4100, L500.2500 ####[facility] [address] [place], [address] [facility] 025 DENYS TEST Positive Normal [facility] Comment on above: Performed By: #### L 9000.0800 ####[facility] [address] [place], [address] Base excess Calc (Bld) [Moles/Vol] -2 mmol/L Normal -2 to +2 [facility] Comment on above: Performed By: #### L 9000.0800 ####[facility] [address] [place], [address] Blood Gas Type ART Normal [facility] Comment on above: Performed By: #### L 9000.0800 ####[facility] [address] [place], [address] CO2 [Moles/Vol] 23 mmol/L Normal [facility] Comment on above: Performed By: #### L 9000.0800 ####[facility] [address] [place], [address] HCO3 (Bld) [Moles/Vol] 21.6 mmol/L Low 22-26 [facility] Comment on above: Performed By: #### L 9000.0800 ####[facility] [address] [place], [address] Mode Not entered Normal [facility] Comment on above: Performed By: #### L 9000.0800 ####[facility] [address] [place], [address] O2 Delivery Dev Room Air Normal [facility] Comment on above: Performed By: #### L 9000.0800 ####[facility] [address] [place], [address] pCO2 29.1 mmHg Low 35-45 [facility] Comment on above: Performed By: #### L 9000.0800 ####[facility] [address] [place], [address] pH (Bld) 7.48 [pH] High 7.35-7.45 [facility] Comment on above: Performed By: #### L 9000.0800 ####[facility] [address] [place], [address] PO2 92 mmHG Normal 75-100 [facility] Comment on above: Performed By: #### L 9000.0800 ####[facility] [address] [place], [address] SITE R Radial Normal [facility] Comment on above: Performed By: #### L 9000.0800 ####[facility] [address] [place], [address] SO2 98 Normal 94-98 [facility] Comment on above: Performed By: #### L 9000.0800 ####[facility] [address] [place], [address] Brain/Head without Contrasto n 07-04-2025 Brain/Head without Contrast Normal [facility] CBC W/Diff, Automatedon - Absolute Lymph 3.22 X10 3/uL Normal 0.83-4.51 [facility] Comment on above: Performed By: #### L 100.0100 ####[facility] [address] [place], [address] Absolute Neut 2.8 X10 3/uL Normal 2.0-7.7 [facility] Comment on above: Performed By: #### L 100.0100 ####[facility] [address] [place], [address] Basophils/100 WBC (Bld) 0.4 % Normal 0-1 [facility] Comment on above: Performed By: #### L 100.0100 ####[facility] [address] [place], [address] Eosinophils/100 WBC (Bld) 3.0 % Normal 0-5 [facility] Comment on above: Performed By: #### L 100.0100 ####[facility] [address] [place], [address] Erythrocyte distribution width (RBC) [Ratio] 13.2 % Normal 11.6-14.6 [facility] Comment on above: Performed By: #### L 100.0100 ####[facility] [address] [place], [address] Hematocrit (Bld) [Volume fraction] 31.2 % Low 37-47 [facility] Comment on above: Performed By: #### L 100.0100 ####[facility] [address] [place], [address] Hemoglobin (Bld) [Mass/Vol] 11.1 g/dL Low 12.0-15.0 [facility] [facility] Comment on above: Performed By: #### L 100.0100 ####[facility] [address] [place], [address] IG% 0.100 Normal 0.0-0.9 [facility] Comment on above: Result Comment: IG% - Immature Granulocytes (promyelocytes, myelocytes andmetamyelocytes) > 1% indicates that a LEFT SHIFT is Present. Performed By: #### L 100.0100 ####[facility] [address] [place], [address] Lymphocytes/100 WBC (Bld) 46.4 % High 19-41 [facility] Comment on above: Performed By: #### L 100.0100 ####[facility] [address] [place], [address] MCH (RBC) [Entitic mass] 31.7 pg Normal 27.0-32.0 [facility] Comment on above: Performed By: #### L 100.0100 ####[facility] [address] [place], [address] MCHC (RBC) [Mass/Vol] 35.6 g/dL Normal 32-36 [facility] Comment on above: Performed By: #### L 100.0100 ####[facility] [address] [place], [address] MCV (RBC) [Entitic vol] 89.1 fL Normal 81-99 [facility] Comment on above: Performed By: #### L 100.0100 ####[facility] [address] [place], [address] Monocytes/100 WBC (Bld) 9.2 % Normal 0-10 [facility] Comment on above: Performed By: #### L 100.0100 ####[facility] [address] [place], [address] Neutrophils/100 WBC (Bld) 40.9 % Low 47-70 [facility] Comment on above: Performed By: #### L 100.0100 ####[facility] [address] [place], [address] Nucleated RBC (Bld) [#/Vol] 0 10*3/uL Normal 0-5 [facility] Comment on above: Performed By: #### L 100.0100 ####[facility] [address] [place], [address] Platelet mean volume (Bld) [Entitic vol] 9.2 fL Normal 6.2-12.0 [facility] Comment on above: Performed By: #### L 100.0100 ####[facility] [address] [place], [address] Platelets (Bld) [#/Vol] 207 10*3/uL Normal 150-450 [facility] Comment on above: Performed By: #### L 100.0100 ####[facility] [address] [place], [address] RBC (Bld) [#/Vol] 3.50 10*6/uL Low 4.2-5.4 [facility] Comment on above: Performed By: #### L 100.0100 ####[facility] [address] [place], [address] RDW SD 43.8 fl Normal 35.1-43.9 [facility] Comment on above: Performed By: #### L 100.0100 ####[facility] [address] [place], [address] WBC (Bld) [#/Vol] 6.9 10*3/uL Normal 4.4-11.0 [facility] Comment on above: Performed By: #### L 100.0100 ####[facility] [address] [place], [address] Consultation - Surgicalon Consultation - Surgical Normal [facility] Hepatitis B Surface Antibody on 07-04-2025 HEP B Surf Ab Non-Reactive Normal [facility] Comment on above: Result Comment: <8.5 mIU/mL: Non-Reactive8.5<= x <11.5 mIU/mL: Indeterminate>=11.5 mIU/mL: Reactive Non Reactive: Inconsistent with immunity less than <10 mIU/mL Reactive: Consistent with immunity greater than or equal to 10 mIU/mL Performed By: #### L 3890.6102, L3890.6301, L3890.6202, L500.3400 ####[facility] [address] [place], [address] Hepatitis C Antibodyon 07-04 Hepatitis C Ab Non-Reactive Normal Nonreactive [facility] Comment on above: Order Comment: Reaso n for Exam: hepatic encephalopathy Result Comment: Reac tive: Presumptive evidence of antibodies to HCV. [facility] for supplemental testing.Non-Reactive: Antibodies to HCV were not detected; does notexclude the possibility of exposure to HCVReactive Results are presumptive evidence of antibodies toHCV. Follow CDC recommendations for supplemental testing.Order confirmation testing: HCV Quant by PCR testing -HCVPCR #[id number] Non Reactive: < 0.8 Equivocal: >/= 0.8 to < 1.0 Reactive: >/= 1.0The [facility] requires that a reactive/equivocal HCV antibodyresult be sent out for confirmation. HCV Quant by PCRtesting. Performed By: #### L 3890.6102, L3890.6301, L3890.6202, L500.3400 ####[facility] [address] [place], [address] L3890.6102on 07-04-2025 HEP B Surf Ag Non-Reactive Normal Nonreactive [facility] Comment on above: Order Comment: Reaso n for Exam: hepatic encephalopathy Result Comment: Reac tive: Presumptive evidence of HBV. Repeatedly reactivesamples must be confirmed using a neutralization test([employer] HBsAg Confirmatory Test)Non-Reactive: HBsAg not detected; does not exclude thepossibility of exposure to HBV Performed By: #### L 3890.6102, L3890.6301, L3890.6202, L500.3400 ####[facility] [address] [place], [address] Lipid Profileon 07-04-2025 CHOL:HDL 3.18 Normal [facility] Comment on above: Order Comment: Comme nts: NPO at MD prior to lipid panel Performed By: #### L 500.4100, L500.2500 ####[facility] [address] [place], [address] Cholesterol [Mass/Vol] 158 mg/dL Normal <=200 [facility] Comment on above: Order Comment: Comme nts: NPO at [place] prior to lipid panel Result Comment: Chol esterol level, Desirable <200 mg/dLBorderline high cholesterol 200-239 mg/dLHigh cholesterol >=240 mg/dLRecommendations of the NCEP Adult Treatment Panel for thefollowing risk-cutoff thresholds for the [place] Americanpopulation. Performed By: #### L 500.4100, L500.2500 ####[facility] [address] [place], [address] Cholesterol in HDL [Mass/Vol] 50 mg/dL Normal [facility] Comment on above: Order Comment: Comme nts: NPO at MD prior to lipid panel Result Comment: Sydni onal Cholesterol Education Program (NCEP) guidelines:<40 mg/dL: Low HDL-cholesterol (major risk factor for CHD)>= 60 mg/dL: High HDL-cholesterol (negative risk factor forCHD)HDL-cholesterol is affected by a number of factors, e.g.smoking, exercise, hormones, sex and age. Performed By: #### L 500.4100, L500.2500 ####[facility] [address] [place], [address] Cholesterol in LDL [Mass/Vol] 96 mg/dL Normal [facility] Comment on above: Order Comment: Comme nts: NPO at MD prior to lipid panel Result Comment: Bord zjdpxr=869-544 mg/dL Higher Yfxa=775 mg/dL or greaterSampson Equation 2020 for LDL-C Performed By: #### L 500.4100, L500.2500 ####[facility] [address] [place], [address] Cholesterol in VLDL [Mass/Vol] 12 mg/dL Normal 5-40 [facility] Comment on above: Order Comment: Comme nts: NPO at MD prior to lipid panel Performed By: #### L 500.4100, L500.2500 ####[facility] [address] [place], [address] Triglyceride [Mass/Vol] 59 mg/dL Normal [facility] Comment on above: Order Comment: Comme nts: NPO at [place] prior to lipid panel Result Comment: The drugs N-Acetylcysteine and Metamizole may falselydepress this assay.Normal range: <150 mg/dLBorderline High: 150-199 mg/dLHigh: 200-499 mg/dLVery High: >500 mg/dL Performed By: #### L 500.4100, L500.2500 ####[facility] [address] [place], [address] Liver Profileon 07-04-2025 Albumin [Mass/Vol] 3.0 g/dL Low 3.4-4.8 [facility] Comment on above: Order Comment: Reaso n for Exam: hepatic encephalopathy Performed By: #### L 3890.6102, L3890.6301, L3890.6202, L500.3400 ####[facility] [address] [place], [address] ALK PHOS 88 U/L Normal 35-104 [facility] Comment on above: Order Comment: Reaso n for Exam: hepatic encephalopathy Performed By: #### L 3890.6102, L3890.6301, L3890.6202, L500.3400 ####[facility] [address] [place], [address] ALT [Catalytic activity/Vol] 9 U/L Normal <=34 [facility] Comment on above: Order Comment: Reaso n for Exam: hepatic encephalopathy Performed By: #### L 3890.6102, L3890.6301, L3890.6202, L500.3400 ####[facility] [address] [place], [address] AST [Catalytic activity/Vol] 31 U/L Normal <=31 [facility] Comment on above: Order Comment: Reaso n for Exam: hepatic encephalopathy Performed By: #### L 3890.6102, L3890.6301, L3890.6202, L500.3400 ####[facility] [address] [place], [address] Bilirubin [Mass/Vol] 0.75 mg/dL Normal 0.00-1.30 [facility] Comment on above: Order Comment: Reaso n for Exam: hepatic encephalopathy Performed By: #### L 3890.6102, L3890.6301, L3890.6202, L500.3400 ####[facility] [address] [place], [address] Bilirubin.direct [Mass/Vol] 0.38 mg/dL High 0.00-0.30 [facility] Comment on above: Order Comment: Reaso n for Exam: hepatic encephalopathy Performed By: #### L 3890.6102, L3890.6301, L3890.6202, L500.3400 ####[facility] [address] [place], [address] Globulin (S) [Mass/Vol] 3.3 g/dL Normal 2.2-4.2 [facility] Comment on above: Order Comment: Reaso n for Exam: hepatic encephalopathy Performed By: #### L 3890.6102, L3890.6301, L3890.6202, L500.3400 ####[facility] [address] [place], [address] T PROT 6.3 g/dL Normal 5.9-8.4 [facility] Comment on above: Order Comment: Reaso n for Exam: hepatic encephalopathy Performed By: #### L 3890.6102, L3890.6301, L3890.6202, L500.3400 ####[facility] [address] [place], [address] Basic Metabolic Profile (BMP )on 07-03-2025 Glucose [Mass/Vol] 161 mg/dL High 70-99 [facility] Comment on above: Result Comment: AMENDED REPORT 07/03/25 0632 GLU previously reported as: 159 H mg/dL Performed By: #### L 500.2500, L100.0100 ####[facility] [address] [place], [address] Brain without Contraston Brain without Contrast Normal [facility] CBC W/Diff, Automatedon 06-23 Absolute Lymph 2.80 X10 3/uL Normal 0.83-4.51 [facility] Comment on above: Performed By: #### L 500.2500, L100.0100 ####[facility] [address] [place], [address] Absolute Neut 5.0 X10 3/uL Normal 2.0-7.7 [facility] Comment on above: Performed By: #### L 500.2500, L100.0100 ####[facility] [address] [place], [address] Basophils/100 WBC (Bld) 0.5 % Normal 0-1 [facility] Comment on above: Performed By: #### L 500.2500, L100.0100 ####[facility] [address] [place], [address] Eosinophils/100 WBC (Bld) 0.8 % Normal 0-5 [facility] Comment on above: Performed By: #### L 500.2500, L100.0100 ####[facility] [address] [place], [address] Erythrocyte distribution width (RBC) [Ratio] 13.2 % Normal 11.6-14.6 [facility] Comment on above: Performed By: #### L 500.2500, L100.0100 ####[facility] [address] [place], [address] Hematocrit (Bld) [Volume fraction] 33.0 % Low 37-47 [facility] Comment on above: Performed By: #### L 500.2500, L100.0100 ####[facility] [address] [place], [address] Hemoglobin (Bld) [Mass/Vol] 12.0 g/dL Normal 12.0-15.0 [facility] Comment on above: Performed By: #### L 500.2500, L100.0100 ####[facility] [address] [place], [address] IG% 0.200 Normal 0.0-0.9 [facility] Comment on above: Result Comment: IG% - Immature Granulocytes (promyelocytes, myelocytes andmetamyelocytes) > 1% indicates that a LEFT SHIFT is Present. Performed By: #### L 500.2500, L100.0100 ####[facility] [address] [place], [address] Lymphocytes/100 WBC (Bld) 33.1 % Normal 19-41 [facility] Comment on above: Performed By: #### L 500.2500, L100.0100 ####[facility] [address] [place], [address] MCH (RBC) [Entitic mass] 32.4 pg High 27.0-32.0 [facility] Comment on above: Performed By: #### L 500.2500, L100.0100 ####[facility] [address] [place], [address] MCHC (RBC) [Mass/Vol] 36.4 g/dL High 32-36 [facility] Comment on above: Performed By: #### L 500.2500, L100.0100 ####[facility] [address] [place], [address] MCV (RBC) [Entitic vol] 89.2 fL Normal 81-99 [facility] Comment on above: Performed By: #### L 500.2500, L100.0100 ####[facility] [address] [place], [address] Monocytes/100 WBC (Bld) 5.9 % Normal 0-10 [facility] Comment on above: Performed By: #### L 500.2500, L100.0100 ####[facility] [address] [place], [address] Neutrophils/100 WBC (Bld) 59.5 % Normal 47-70 [facility] Comment on above: Performed By: #### L 500.2500, L100.0100 ####[facility] [address] [place], [address] Nucleated RBC (Bld) [#/Vol] 0 10*3/uL Normal 0-5 [facility] Comment on above: Performed By: #### L 500.2500, L100.0100 ####[facility] [address] [place], [address] Platelet mean volume (Bld) [Entitic vol] 8.9 fL Normal 6.2-12.0 [facility] Comment on above: Performed By: #### L 500.2500, L100.0100 ####[facility] [address] [place], [address] Platelets (Bld) [#/Vol] 210 10*3/uL Normal 150-450 [facility] Comment on above: Performed By: #### L 500.2500, L100.0100 ####[facility] [address] [place], [address] RBC (Bld) [#/Vol] 3.70 10*6/uL Low 4.2-5.4 [facility] Comment on above: Performed By: #### L 500.2500, L100.0100 ####[facility] [address] [place], [address] RDW SD 43.2 fl Normal 35.1-43.9 [facility] Comment on above: Performed By: #### L 500.2500, L100.0100 ####[facility] [address] [place], [address] WBC (Bld) [#/Vol] 8.5 10*3/uL Normal 4.4-11.0 [facility] Comment on above: Performed By: #### L 500.2500, L100.0100 ####[facility] [address] [place], [address] CTA Head AND Neck W/ Contras ton 07-03-2025 CTA Head AND Neck W/ Contrast Normal [facility] Carotid Duplex Ultrasoundon 07-03-2025 Carotid Duplex Ultrasound Normal [facility] Echo, Limited Studyon 2024 Echo, Limited Study Normal [facility] MR/CON.PCM.NEon 07-03-2025 MR/CON.PCM.NE Normal [facility] Basic Metabolic Profile (BMP )on 07-02-2025 BUN/CRE 17.9 RATIO Normal 10-20 [facility] Comment on above: Performed By: #### L 500.2500, L100.0100 ####[facility] [address] [place], [address] Calcium [Mass/Vol] 9.1 mg/dL Normal 7.6-11.0 [facility] Comment on above: Performed By: #### L 500.2500, L100.0100 ####[facility] [address] [place], [address] Chloride [Moles/Vol] 109 mmol/L High 98-108 [facility] Comment on above: Performed By: #### L 500.2500, L100.0100 ####[facility] [address] [place], [address] CO2 [Moles/Vol] 18.7 mmol/L Low 21.0-32.0 [facility] Comment on above: Performed By: #### L 500.2500, L100.0100 ####[facility] [address] [place], [address] Creatinine [Mass/Vol] 0.60 mg/dL Low 0.70-1.20 [facility] Comment on above: Performed By: #### L 500.2500, L100.0100 ####[facility] [address] [place], [address] ECRCL 45.84 ml/min Low 50-250 [facility] Comment on above: Performed By: #### L 500.2500, L100.0100 ####[facility] [address] [place], [address] GAP 13 Normal 5-15 [facility] Comment on above: Performed By: #### L 500.2500, L100.0100 ####[facility] [address] [place], [address] GFR/1.73 sq M.predicted among non-blacks MDRD (S/P/Bld) [Vol rate/Area] 92 mL/min/{1.73_m2} Normal >60 [facility] Comment on above: Result Comment: mL/m in/1.73m2 CKD-EPI Creatinine Equation (2020) Performed By: #### L 500.2500, L100.0100 ####[facility] [address] [place], [address] Glucose [Mass/Vol] 162 mg/dL High 70-99 [facility] Comment on above: Performed By: #### L 500.2500, L100.0100 ####[facility] [address] [place], [address] Potassium [Moles/Vol] 3.3 mmol/L Normal 3.3-5.1 [facility] Comment on above: Performed By: #### L 500.2500, L100.0100 ####[facility] [address] [place], [address] Sodium [Moles/Vol] 140 mmol/L Normal 133-145 [facility] Comment on above: Performed By: #### L 500.2500, L100.0100 ####[facility] [address] [place], [address] Urea nitrogen [Mass/Vol] 11 mg/dL Normal 4-19 [facility] Comment on above: Performed By: #### L 500.2500, L100.0100 ####[facility] [address] [place], [address] Brain/Head without Contrasto n 07-02-2024 Brain/Head without Contrast Normal [facility] CBC W/Diff, Automatedon 11- 0-2024 Absolute Lymph 2.80 X10 3/uL Normal 0.83-4.51 [facility] Comment on above: Performed By: #### L 500.2500, L100.0100 ####[facility] [address] [place], [address] Absolute Neut 4.8 X10 3/uL Normal 2.0-7.7 [facility] Comment on above: Performed By: #### L 500.2500, L100.0100 ####[facility] [address] [place], [address] Basophils/100 WBC (Bld) 0.5 % Normal 0-1 [facility] Comment on above: Performed By: #### L 500.2500, L100.0100 ####[facility] [address] [place], [address] Eosinophils/100 WBC (Bld) 1.0 % Normal 0-5 [facility] Comment on above: Performed By: #### L 500.2500, L100.0100 ####[facility] [address] [place], [address] Erythrocyte distribution width (RBC) [Ratio] 13.3 % Normal 11.6-14.6 [facility] Comment on above: Performed By: #### L 500.2500, L100.0100 ####[facility] [address] [place], [address] Hematocrit (Bld) [Volume fraction] 34.5 % Low 37-47 [facility] Comment on above: Performed By: #### L 500.2500, L100.0100 ####[facility] [address] [place], [address] Hemoglobin (Bld) [Mass/Vol] 12.6 g/dL Normal 12.0-15.0 [facility] Comment on above: Performed By: #### L 500.2500, L100.0100 ####[facility] [address] [place], [address] IG% 0.200 Normal 0.0-0.9 [facility] Comment on above: Result Comment: IG% - Immature Granulocytes (promyelocytes, myelocytes andmetamyelocytes) > 1% indicates that a LEFT SHIFT is Present. Performed By: #### L 500.2500, L100.0100 ####[facility] [address] [place], [address] Lymphocytes/100 WBC (Bld) 33.7 % Normal 19-41 [facility] Comment on above: Performed By: #### L 500.2500, L100.0100 ####[facility] [address] [place], [address] MCH (RBC) [Entitic mass] 32.6 pg High 27.0-32.0 [facility] Comment on above: Performed By: #### L 500.2500, L100.0100 ####[facility] [address] [place], [address] MCHC (RBC) [Mass/Vol] 36.5 g/dL High 32-36 [facility] Comment on above: Performed By: #### L 500.2500, L100.0100 ####[facility] [address] [place], [address] MCV (RBC) [Entitic vol] 89.1 fL Normal 81-99 [facility] Comment on above: Performed By: #### L 500.2500, L100.0100 ####[facility] [address] [place], [address] Monocytes/100 WBC (Bld) 7.5 % Normal 0-10 [facility] Comment on above: Performed By: #### L 500.2500, L100.0100 ####[facility] [address] [place], [address] Neutrophils/100 WBC (Bld) 57.1 % Normal 47-70 [facility] Comment on above: Performed By: #### L 500.2500, L100.0100 ####[facility] [address] [place], [address] Nucleated RBC (Bld) [#/Vol] 0 10*3/uL Normal 0-5 [facility] Comment on above: Performed By: #### L 500.2500, L100.0100 ####[facility] [address] [place], [address] Platelet mean volume (Bld) [Entitic vol] 9.1 fL Normal 6.2-12.0 [facility] Comment on above: Performed By: #### L 500.2500, L100.0100 ####[facility] [address] [place], [address] Platelets (Bld) [#/Vol] 238 10*3/uL Normal 150-450 [facility] Comment on above: Performed By: #### L 500.2500, L100.0100 ####[facility] [address] [place], [address] RBC (Bld) [#/Vol] 3.87 10*6/uL Low 4.2-5.4 [facility] Comment on above: Performed By: #### L 500.2500, L100.0100 ####[facility] [address] [place], [address] RDW SD 43.3 fl Normal 35.1-43.9 [facility] Comment on above: Performed By: #### L 500.2500, L100.0100 ####[facility] [address] [place], [address] WBC (Bld) [#/Vol] 8.3 10*3/uL Normal 4.4-11.0 [facility] Comment on above: Performed By: #### L 500.2500, L100.0100 ####[facility] [address] [place], [address] Emergency Department Summary on 07-02-2025 Emergency Department Summary Normal [facility] HIP, UNI W/ Pelvis 2-3 Views on 07-02-2025 HIP, UNI W/ Pelvis 2-3 Views Normal [facility] Urinalysis, Completeon 07-02 AMORPHOUS 2+ Normal [facility] Comment on above: Order Comment: MARCO CTOR TO SPECIFY Performed By: #### L 400.0001 ####[facility] [address] [place], [address] BACTERIA 3+ /hpf Normal None Seen [facility] Comment on above: Order Comment: MARCO CTOR TO SPECIFY Performed By: #### L 400.0001 ####[facility] [address] [place], [address] EPI,TRANSITION 0-5 SEEN Normal 0-5 [facility] Comment on above: Order Comment: MARCO CTOR TO SPECIFY Performed By: #### L 400.0001 ####[facility] [address] [place], [address] RBC 0-5 SEEN Normal 0-5 [facility] Comment on above: Order Comment: COLLE CTOR TO SPECIFY Performed By: #### L 400.0001 ####[facility] [address] [place], [place], [address] WBC 25-50 SEEN Normal 0-5 [facility] Comment on above: Order Comment: COLLE CTOR TO SPECIFY Performed By: #### L 400.0001 ####[facility] [address] [place], [address] EPI,SQUAMOUS 0 SEEN Normal 5-10 [facility] Comment on above: Order Comment: MAROC CTOR TO SPECIFY Performed By: #### L 400.0001 ####[facility] [address] [place], [place], [id number] Mucus Ql (Urine sed) 0 SEEN Normal [facility] Comment on above: Order Comment: MARCO CTOR TO SPECIFY Performed By: #### L 400.0001 ####[facility] [address] [place], [place], [address] Femur Min 2 Viewson 03-29-20 25 Femur Min 2 Views Normal [facility] Orthopedic Visit Reporton Orthopedic Visit Report Normal [facility] Pelvis 1 or 2 Viewson 2024 Pelvis 1 or 2 Views Normal [facility] CRPon 03-20-2025 C-REACTIVE PROT 9.63 mg/L High 0.0-3.0 [facility] Comment on above: Order Comment: 204.1 Performed By: #### L 501.9310, L101.9900, L501.9985, L501.9520, L501.6710 ####[facility] [address] [place], [address] Erythrocyte Sed Rateon 03-20 SED RATE 20 mm/hr Normal 0-30 [facility] Comment on above: Order Comment: 204.1 Performed By: #### L 501.9310, L101.9900, L501.9985, L501.9520, L501.6710 ####[facility] [address] [place], [place], [address] Erythrocyte sedimentation ra teOrdered By: Pineda Morrison on 03-20-2025 ESR (Bld) [Velocity] 20 mm/h 0-30 [facility] Hemoglobin A1con 03-20-2025 HbA1c (Bld) [Mass fraction] 5.7 % Normal <=5.6 [facility] Comment on above: Order Comment: 204.1 Result Comment: Norm al < 5.7 % Prediabetic 5.7 - 6.4 % Diabetic >or= 6.5 % Please note range changes. Performed By: #### L 501.9310, L101.9900, L501.9985, L501.9520, L501.6710 ####[facility] [address] [place], [place], [id number] Hemoglobin A1c percentageOrd ered By: Pineda Morrison on 03-20-2025 HbA1c (Bld) [Mass fraction] 5.7 % <5.7 [facility] Comment on above: Normal < 5.7 % Predi abetic 5.7 - 6.4 % Diabetic >or= 6.5 % Please note range changes. Serum or plasma C reactive p rotein measurement (mass/volume)Ordered By: Pineda Morrison on 03-20-2025 CRP [Mass/Vol] 9.63 mg/L High 0.0-3.0 [facility] T4 Total, Thyroxinon 025 T4 [Mass/Vol] 6.6 ug/dL Normal 4.8-13.9 [facility] Comment on above: Order Comment: 204.1 Performed By: #### L 501.9310, L101.9900, L501.9985, L501.9520, L501.6710 ####[facility] [address] [place], [place], [id number] TSH DL <= 0.005 mIU/L QnOrde red By: Pineda Morrison on 03-20-2025 TSH Qn 3.310 uIU/mL 0.300-4.200 [facility] Thyroid Stim Hormone (TSH)on 03-20-2025 TSH 3.310 uIU/mL Normal 0.300-4.200 [facility] Comment on above: Order Comment: 204.1 Performed By: #### L 501.9310, L101.9900, L501.9985, L501.9520, L501.6710 ####[facility] [address] [place], [address] ThyroxineOrdered By: Pineda rhodes on 03-20-2025 T4 [Mass/Vol] 6.6 ug/dL 4.8-13.9 [facility] Brain/Head without Contrasto n 03-18-2025 Brain/Head without Contrast Normal [facility] Emergency Department Summary on 03-18-2025 Emergency Department Summary Normal [facility] Anion gap in Serum or Plasma Ordered By: Pineda Morrison on 03-13-2025 Anion gap [Moles/Vol] 12 mmol/L 5-15 [facility] BUN/creatinine ratioOrdered By: Pineda Morrison on 03-13-2025 Urea nitrogen/Creatinine [Mass ratio] 30.1 mg/mg High 10-20 [facility] Bilirubin, totalOrdered By: Pineda Morrison on 03-13-2025 Bilirubin [Mass/Vol] 0.55 mg/dL 0.00-1.30 [facility] CBC-Complete Blood Cnt No Di ffon 03-13-2025 Erythrocyte distribution width (RBC) [Ratio] 14.7 % High 11.6-14.6 [facility] Comment on above: Order Comment: 204 Performed By: #### L 500.4100, L500.4050, L100.0500 ####[facility] [address] [place], [address] Hematocrit (Bld) [Volume fraction] 28.8 % Low 37-47 [facility] Comment on above: Order Comment: 204 Performed By: #### L 500.4100, L500.4050, L100.0500 ####[facility] [address] [place], [address] Hemoglobin (Bld) [Mass/Vol] 10.4 g/dL Low 12.0-15.0 [facility] Comment on above: Order Comment: 204 Performed By: #### L 500.4100, L500.4050, L100.0500 ####[facility] [address] [place], [address] MCH (RBC) [Entitic mass] 32.4 pg High 27.0-32.0 [facility] Comment on above: Order Comment: 204 Performed By: #### L 500.4100, L500.4050, L100.0500 ####[facility] [address] [place], [address] MCHC (RBC) [Mass/Vol] 36.1 g/dL High 32-36 [facility] Comment on above: Order Comment: 204 Performed By: #### L 500.4100, L500.4050, L100.0500 ####[facility] [address] [place], [address] MCV (RBC) [Entitic vol] 89.7 fL Normal 81-99 [facility] Comment on above: Order Comment: 204 Performed By: #### L 500.4100, L500.4050, L100.0500 ####[facility] [address] [place], [address] Platelet mean volume (Bld) [Entitic vol] 9.4 fL Normal 6.2-12.0 [facility] Comment on above: Order Comment: 204 Performed By: #### L 500.4100, L500.4050, L100.0500 ####[facility] [address] [place], [address] Platelets (Bld) [#/Vol] 240 10*3/uL Normal 150-450 [facility] Comment on above: Order Comment: 204 Performed By: #### L 500.4100, L500.4050, L100.0500 ####[facility] [address] [place], [address] RBC (Bld) [#/Vol] 3.21 10*6/uL Low 4.2-5.4 [facility] Comment on above: Order Comment: 204 Performed By: #### L 500.4100, L500.4050, L100.0500 ####[facility] [address] [place], [address] RDW SD 47.8 fl High 35.1-43.9 [facility] Comment on above: Order Comment: 204 Performed By: #### L 500.4100, L500.4050, L100.0500 ####[facility] [address] [place], [address] WBC (Bld) [#/Vol] 6.3 10*3/uL Normal 4.4-11.0 [facility] Comment on above: Order Comment: 204 Performed By: #### L 500.4100, L500.4050, L100.0500 ####[facility] [address] [place], [address] Calculated very low density lipoprotein (VLDL) cholesterol measurementOrdered By: Pineda Morrison on 03-13-2025 Calculated very low density lipoprotein (VLDL) cholesterol measurement 20 mg/dL 5-40 [facility] Carbon dioxide, total [Moles /volume] in Central venous bloodOrdered By: Pineda Morrison on 03-13-2025 CO2 [Moles/Vol] 21.2 mmol/L 21.0-32.0 [facility] Chloride assayOrdered By: Jacky Morrison on 03-13-2025 Chloride [Moles/Vol] 99 mmol/L 98-108 [facility] Comprehensive Metabolic Prof ilon 03-13-2025 Albumin [Mass/Vol] 3.1 g/dL Low 3.4-4.8 [facility] Comment on above: Order Comment: 204 Performed By: #### L 500.4100, L500.4050, L100.0500 ####[facility] [address] [place], [address] Albumin/Globulin [Mass ratio] 1.0 {ratio} Normal 0.9-2.4 [facility] Comment on above: Order Comment: 204 Performed By: #### L 500.4100, L500.4050, L100.0500 ####[facility] [address] [place], [address] ALK PHOS 130 U/L High 35-104 [facility] Comment on above: Order Comment: 204 Performed By: #### L 500.4100, L500.4050, L100.0500 ####[facility] [address] [place], [address] ALT [Catalytic activity/Vol] 6 U/L Normal <=34 [facility] Comment on above: Order Comment: 204 Performed By: #### L 500.4100, L500.4050, L100.0500 ####[facility] [address] [place], [address] AST [Catalytic activity/Vol] 29 U/L Normal <=31 [facility] Comment on above: Order Comment: 204 Performed By: #### L 500.4100, L500.4050, L100.0500 ####[facility] [address] [place], [address] Bilirubin [Mass/Vol] 0.55 mg/dL Normal 0.00-1.30 [facility] Comment on above: Order Comment: 204 Performed By: #### L 500.4100, L500.4050, L100.0500 ####[facility] [address] [place], [address] BUN/CRE 30.1 RATIO High 10-20 [facility] Comment on above: Order Comment: 204 Performed By: #### L 500.4100, L500.4050, L100.0500 ####[facility] [address] [place], [address] Calcium [Mass/Vol] 9.9 mg/dL Normal 7.6-11.0 [facility] Comment on above: Order Comment: 204 Performed By: #### L 500.4100, L500.4050, L100.0500 ####[facility] [address] [place], [address] Chloride [Moles/Vol] 99 mmol/L Normal 98-108 [facility] Comment on above: Order Comment: 204 Performed By: #### L 500.4100, L500.4050, L100.0500 ####[facility] [address] [place], [address] CO2 [Moles/Vol] 21.2 mmol/L Normal 21.0-32.0 [facility] Comment on above: Order Comment: 204 Performed By: #### L 500.4100, L500.4050, L100.0500 ####[facility] [address] [place], [address] Creatinine [Mass/Vol] 0.49 mg/dL Low 0.70-1.20 [facility] Comment on above: Order Comment: 204 Performed By: #### L 500.4100, L500.4050, L100.0500 ####[facility] [address] [place], [address] GAP 12 Normal 5-15 [facility] Comment on above: Order Comment: 204 Performed By: #### L 500.4100, L500.4050, L100.0500 ####[facility] [address] [place], [address] GFR/1.73 sq M.predicted among non-blacks MDRD (S/P/Bld) [Vol rate/Area] 97 mL/min/{1.73_m2} Normal >60 [facility] Comment on above: Order Comment: 204 Result Comment: mL/m in/1.73m2 CKD-EPI Creatinine Equation (2020) Performed By: #### L 500.4100, L500.4050, L100.0500 ####[facility] [address] [place], [address] Globulin (S) [Mass/Vol] 3.2 g/dL Normal 2.2-4.2 [facility] Comment on above: Order Comment: 204 Performed By: #### L 500.4100, L500.4050, L100.0500 ####[facility] [address] [place], [address] Glucose [Mass/Vol] 74 mg/dL Normal 70-99 [facility] Comment on above: Order Comment: 204 Performed By: #### L 500.4100, L500.4050, L100.0500 ####[facility] [address] [place], [address] Potassium [Moles/Vol] 4.1 mmol/L Normal 3.3-5.1 [facility] Comment on above: Order Comment: 204 Performed By: #### L 500.4100, L500.4050, L100.0500 ####[facility] [address] [place], [address] Sodium [Moles/Vol] 132 mmol/L Low 133-145 [facility] Comment on above: Order Comment: 204 Performed By: #### L 500.4100, L500.4050, L100.0500 ####[facility] [address] [place], [address] T PROT 6.3 g/dL Normal 5.9-8.4 [facility] Comment on above: Order Comment: 204 Performed By: #### L 500.4100, L500.4050, L100.0500 ####[facility] [address] [place], [address] Urea nitrogen [Mass/Vol] 15 mg/dL Normal 4-19 [facility] Comment on above: Order Comment: 204 Performed By: #### L 500.4100, L500.4050, L100.0500 ####[facility] [address] [place], [address] Erythrocyte distribution wid th ratioOrdered By: Pineda Morrison on 03-13-2025 Erythrocyte distribution width (RBC) [Ratio] 14.7 % High 11.6-14.6 [facility] Erythrocyte distribution wid th standard deviationOrdered By: Pineda Morrison on 03-13-2025 Erythrocyte distribution width (RBC) [Ratio] 47.8 fl High 35.1-43.9 [facility] Glomerular filtration rate ( GFR) estimation/1.73 sq m using serum, plasma, or whole bOrdered By: Pineda Morrison on 03-13-2025 GFR/1.73 sq M.predicted among non-blacks MDRD (S/P/Bld) [Vol rate/Area] 97 mL/min/{1.73_m2} >60 [facility] Comment on above: mL/min/1.73m2 CKD-EP I Creatinine Equation (2020) Hematocrit Auto (Bld) [Volum e fraction]Ordered By: Pineda Morrison on 03-13-2025 Hematocrit (Bld) [Volume fraction] 28.8 % Low 37-47 [facility] Hemoglobin measurementOrdere d By: Pineda Morrison on 03-13-2025 Hemoglobin (Bld) [Mass/Vol] 10.4 g/dL Low 12.0-15.0 [facility] LDL calc ser/plasOrdered By: Pineda Morrison on 03-13-2025 Cholesterol in LDL [Mass/Vol] 70 mg/dL [facility] Comment on above: Liptvvnlcj=828-140 m g/dL & Higher Gyhi=558 mg/dL or greater Laboratory - Chemistry and C hemistry - challengeOrdered By: Pineda Morrison on 03-13-2025 AST [Catalytic activity/Vol] 29 U/L <32 [facility] Lipid Profileon 03-13-2025 CHOL:HDL 3.18 Normal [facility] Comment on above: Order Comment: 204 Performed By: #### L 500.4100, L500.4050, L100.0500 ####[facility] [address] [place], [address] Cholesterol [Mass/Vol] 132 mg/dL Normal <=200 [facility] Comment on above: Order Comment: 204 Result Comment: Chol esterol level, Desirable <200 mg/dLBorderline high cholesterol 200-239 mg/dLHigh cholesterol >=240 mg/dLRecommendations of the NCEP Adult Treatment Panel for thefollowing risk-cutoff thresholds for the [place] [facility]. Performed By: #### L 500.4100, L500.4050, L100.0500 ####[facility] [address] [place], [address] Cholesterol in HDL [Mass/Vol] 42 mg/dL Normal [facility] Comment on above: Order Comment: 204 Result Comment: Sydni onal Cholesterol Education Program (NCEP) guidelines:<40 mg/dL: Low HDL-cholesterol (major risk factor for CHD)>= 60 mg/dL: High HDL-cholesterol (negative risk factor forCHD)HDL-cholesterol is affected by a number of factors, e.g.smoking, exercise, hormones, sex and age. Performed By: #### L 500.4100, L500.4050, L100.0500 ####[facility] [address] [place], [address] Cholesterol in LDL [Mass/Vol] 70 mg/dL Normal [facility] Comment on above: Order Comment: 204 Result Comment: Bord unocnt=118-597 mg/dL Higher Tyzu=094 mg/dL or greater Performed By: #### L 500.4100, L500.4050, L100.0500 ####[facility] [address] [place], [address] Cholesterol in VLDL [Mass/Vol] 20 mg/dL Normal 5-40 [facility] Comment on above: Order Comment: 204 Performed By: #### L 500.4100, L500.4050, L100.0500 ####[facility] [address] [place], [address] Triglyceride [Mass/Vol] 101 mg/dL Normal [facility] Comment on above: Order Comment: 204 Result Comment: The drugs N-Acetylcysteine and Metamizole may falselydepress this assay.Normal range: <150 mg/dLBorderline High: 150-199 mg/dLHigh: 200-499 mg/dLVery High: >500 mg/dL Performed By: #### L 500.4100, L500.4050, L100.0500 ####[facility] [address] [place], [place], [id number] MCV (mean corpuscular volume ) determinationOrdered By: Pineda Morrison on 03-13-2025 MCV (RBC) [Entitic vol] 89.7 fL 81-99 [facility] Mean corpuscular hemoglobin (MCH) determinationOrdered By: Pineda Morrison on 03-13-2025 MCH (RBC) [Entitic mass] 32.4 pg High 27.0-32.0 [facility] Mean corpuscular hemoglobin concentration (MCHC) determinationOrdered By: Pineda Morrison on 03-13-2025 MCHC (RBC) [Mass/Vol] 36.1 g/dL High 32-36 [facility] Mean platelet volume determi nationOrdered By: Pineda Morrison on 03-13-2025 Platelet mean volume (Bld) [Entitic vol] 9.4 fL 6.2-12.0 [facility] Platelet countOrdered By: Jacky Morrison on 03-13-2025 Platelets (Bld) [#/Vol] 240 10*3/uL 150-450 [facility] Potassium measurement (mass/ volume)Ordered By: Pineda Morrison on 03-13-2025 Potassium (Unsp spec) [Mass/Vol] 4.1 mmol/L 3.3-5.1 [facility] RBC Auto (Bld) [#/Vol]Ordere d By: Pineda Morrison on 03-13-2025 RBC (Bld) [#/Vol] 3.21 10*6/uL Low 4.2-5.4 [facility] Screening total cholesterol/ high density lipoprotein (HDL) cholesterol ratioOrdered By: Pineda Morrison on 03-13-2025 Cholesterol.total/Choles terol in HDL [Mass ratio] 3.18 {ratio} [facility] Serum creatinine measurement (mass/volume)Ordered By: Pineda Morrison on 03-13-2025 Creatinine [Mass/Vol] 0.49 mg/dL Low 0.70-1.20 [facility] Serum globulin measurementOr dered By: Pineda Morrison on 03-13-2025 Globulin (S) [Mass/Vol] 3.2 g/dL 2.2-4.2 [facility] Serum glucose measurement (m ass/volume)Ordered By: Pineda Morrison on 03-13-2025 Glucose [Mass/Vol] 74 mg/dL 70-99 [facility] Serum or plasma alanine cornejo otransferase (ALT) measurementOrdered By: Pineda Morrison on 03-13-2025 ALT [Catalytic activity/Vol] 6 U/L <35 [facility] Serum or plasma albumin sabino urement (mass/volume)Ordered By: Pineda Morrison on 03-13-2025 Albumin [Mass/Vol] 3.1 g/dL Low 3.4-4.8 [facility] Serum or plasma albumin/glob ulin mass ratioOrdered By: Pineda Morrison on 03-13-2025 Albumin/Globulin [Mass ratio] 1.0 {ratio} 0.9-2.4 [facility] Serum or plasma alkaline shaista sphatase measurementOrdered By: Pineda Morrison on 03-13-2025 ALP [Catalytic activity/Vol] 130 U/L High 35-104 [facility] Serum or plasma calcium sabino urement (mass/volume)Ordered By: Pineda Morrison on 03-13-2025 Calcium [Mass/Vol] 9.9 mg/dL 7.6-11.0 [facility] Serum or plasma cholesterol in HDL measurement (mass/volume)Ordered By: Pineda Morrison on 03-13-2025 Cholesterol in HDL [Mass/Vol] 42 mg/dL >40 [facility] Comment on above: National Cholesterol Education Program (NCEP) guidelines:<40 mg/dL: Low HDL-cholesterol (major risk factor for CHD)>= 60 mg/dL: High HDL-cholesterol (negative risk factor for CHD)HDL-cholesterol is affected by a number of factors, e.g. smoking, exercise, hormones, sex and age. Serum or plasma cholesterol measurement (mass/volume)Ordered By: Pineda Morrison on 03-13-2025 Cholesterol [Mass/Vol] 132 mg/dL <201 [facility] Comment on above: Cholesterol level, D esirable <200 mg/dLBorderline high cholesterol 200-239 mg/dLHigh cholesterol >=240 mg/dLRecommendations of the NCEP Adult Treatment Panel for the following risk-cutoff thresholds for the [place] population. Serum or plasma urea nitroge n measurement (mass/volume)Ordered By: Pineda Morrison on 03-13-2025 Urea nitrogen [Mass/Vol] 15 mg/dL 4- [facility] Sodium levelOrdered By: Jeffrey Morrison on 03-13-2025 Sodium [Moles/Vol] 132 mmol/L Low 133-145 [facility] Total proteinOrdered By: Marshal Morrison on 03-13-2025 Protein [Mass/Vol] 6.3 g/dL 5.9-8.4 [facility] Triglycerides measurementOrd ered By: Pineda Morrison on 03-13-2025 Triglyceride [Mass/Vol] 101 mg/dL <199 [facility] Comment on above: The drugs N-Acetylcy steine and Metamizole may falsely depress this assay. Normal range: <150 mg/dLBorderline High: 150-199 mg/dLHigh: 200-499 mg/dLVery High: >500 mg/dL White blood cell (WBC) count Ordered By: Pineda Morrison on 03-13-2025 WBC (Bld) [#/Vol] 6.3 10*3/uL 4.4-11.0 [facility] Anion gap in Serum or Plasma Ordered By: Katei Bah on 03-05-2025 Anion gap [Moles/Vol] 11 mmol/L - [facility] BUN/creatinine ratioOrdered By: Katie Bah on 03-05-2025 Urea nitrogen/Creatinine [Mass ratio] 31.2 mg/mg High 06-11 [facility] Basic Metabolic Profile (BMP )on 03-05-2025 BUN/CRE 31.2 RATIO High 06-11 [facility] Comment on above: Performed By: #### L 500.2500, L501.5200, L100.0600 ####[facility] [address] [place], [address] Calcium [Mass/Vol] 9.2 mg/dL Normal 7.6-11.0 [facility] Comment on above: Performed By: #### L 500.2500, L501.5200, L100.0600 ####[facility] [address] [place], [address] Chloride [Moles/Vol] 102 mmol/L Normal 98-108 [facility] Comment on above: Performed By: #### L 500.2500, L501.5200, L100.0600 ####[facility] [address] [place], [address] CO2 [Moles/Vol] 21.2 mmol/L Normal 21.0-32.0 [facility] Comment on above: Performed By: #### L 500.2500, L501.5200, L100.0600 ####[facility] [address] [place], [address] Creatinine [Mass/Vol] 0.54 mg/dL Low 0.70-1.20 [facility] Comment on above: Performed By: #### L 500.2500, L501.5200, L100.0600 ####[facility] [address] [place], [address] ECRCL 50.99 ml/min Normal 50-250 [facility] Comment on above: Performed By: #### L 500.2500, L501.5200, L100.0600 ####[facility] [address] [place], [address] GAP 11 Normal 5-15 [facility] Comment on above: Performed By: #### L 500.2500, L501.5200, L100.0600 ####[facility] [address] [place], [address] GFR/1.73 sq M.predicted among non-blacks MDRD (S/P/Bld) [Vol rate/Area] 95 mL/min/{1.73_m2} Normal >60 [facility] Comment on above: Result Comment: mL/m in/1.73m2 CKD-EPI Creatinine Equation (2020) Performed By: #### L 500.2500, L501.5200, L100.0600 ####[facility] [address] [place], [address] Glucose [Mass/Vol] 90 mg/dL Normal 70-99 [facility] Comment on above: Performed By: #### L 500.2500, L501.5200, L100.0600 ####[facility] [address] [place], [address] Potassium [Moles/Vol] 4.1 mmol/L Normal 3.3-5.1 [facility] Comment on above: Performed By: #### L 500.2500, L501.5200, L100.0600 ####[facility] [address] [place], [address] Sodium [Moles/Vol] 134 mmol/L Normal 133-145 [facility] Comment on above: Performed By: #### L 500.2500, L501.5200, L100.0600 ####[facility] [address] [place], [address] Urea nitrogen [Mass/Vol] 17 mg/dL Normal 4-19 [facility] Comment on above: Performed By: #### L 500.2500, L501.5200, L100.0600 ####[facility] [address] [place], [address] Carbon dioxide, total [Moles /volume] in Central venous bloodOrdered By: Katie Bah on 03-05-2025 CO2 [Moles/Vol] 21.2 mmol/L 21.0-32.0 [facility] Chloride assayOrdered By: Shahida iam Olvin on 03-05-2025 Chloride [Moles/Vol] 102 mmol/L 98-108 [facility] Glomerular filtration rate ( GFR) estimation/1.73 sq m using serum, plasma, or whole bOrdered By: Katie Olvin on 03-05-2025 GFR/1.73 sq M.predicted among non-blacks MDRD (S/P/Bld) [Vol rate/Area] 95 mL/min/{1.73_m2} >60 [facility] Comment on above: mL/min/1.73m2 CKD-EP I Creatinine Equation (2020) HH, Hemoglobin AND Hematocri ton 03-05-2025 Hematocrit (Bld) [Volume fraction] 27.0 % Low 37-47 [facility] Comment on above: Performed By: #### L 500.2500, L501.5200, L100.0600 ####[facility] [address] [place], [address] Hemoglobin (Bld) [Mass/Vol] 9.5 g/dL Low 12.0-15.0 [facility] Comment on above: Performed By: #### L 500.2500, L501.5200, L100.0600 ####[facility] [address] [place], [address] Hematocrit Auto (Bld) [Volum e fraction]Ordered By: Katie Bah on 03-05-2025 Hematocrit (Bld) [Volume fraction] 27.0 % Low 37-47 [facility] Hemoglobin measurementOrdere d By: Katie Bah on 03-05-2025 Hemoglobin (Bld) [Mass/Vol] 9.5 g/dL Low 12.0-15.0 [facility] Magnesiumon 03-05-2025 Magnesium [Mass/Vol] 1.9 mg/dL Normal 1.5-2.2 [facility] Comment on above: Performed By: #### L 500.2500, L501.5200, L100.0600 ####[facility] [address] [place], [address] Magnesium measurement (mass/ volume)Ordered By: Katie Olvin on 03-05-2025 Magnesium (Unsp spec) [Mass/Vol] 1.9 mg/dL 1.5-2.2 [facility] Potassium measurement (mass/ volume)Ordered By: Katie Olvin on 03-05-2025 Potassium (Unsp spec) [Mass/Vol] 4.1 mmol/L 3.3-5.1 [facility] Serum creatinine measurement (mass/volume)Ordered By: Katie Olvin on 03-05-2025 Creatinine [Mass/Vol] 0.54 mg/dL Low 0.70-1.20 [facility] Serum glucose measurement (m ass/volume)Ordered By: Katie Olvin on 03-05-2025 Glucose [Mass/Vol] 90 mg/dL 70-99 [facility] Serum or plasma calcium sabino urement (mass/volume)Ordered By: Katie Olvin on 03-05-2025 Calcium [Mass/Vol] 9.2 mg/dL 7.6-11.0 [facility] Serum or plasma urea nitroge n measurement (mass/volume)Ordered By: Katie Olvin on 03-05-2025 Urea nitrogen [Mass/Vol] 17 mg/dL 4-19 [facility] Sodium levelOrdered By: Katie Olvin on 03-05-2025 Sodium [Moles/Vol] 134 mmol/L 133-145 [facility] Bedside Glucoseon 03-03-2025 FINGERSTICK GLU 175 mg/dL High 74-106 [facility] Comment on above: Result Comment: MARINA GEMENT OF PATIENT CARE PER NURSING PROTOCOL Performed By: #### L 501.080 ####[facility] [address] [place], [address] FINGERSTICK GLU 125 mg/dL High 74-106 [facility] Comment on above: Result Comment: MARINA GEMENT OF PATIENT CARE PER NURSING PROTOCOL Performed By: #### L 501.080 ####[facility] [address] [place], [place], [id number] Gl[facility] at [facility] deOrdered By: Katie Bah on 03-03-2025 Glucose [Mass/Vol] 175 mg/dL High 74-106 [facility] Comment on above: MANAGEMENT OF PATIEN T CARE PER NURSING PROTOCOL Bedside Glucoseon 03-02-2025 FINGERSTICK GLU 133 mg/dL High 74-106 [facility] Comment on above: Result Comment: MARINA GEMENT OF PATIENT CARE PER NURSING PROTOCOL Performed By: #### L 501.080 ####[facility] [address] [facility] [address] FINGERSTICK GLU 119 mg/dL High 74-106 [facility] Comment on above: Result Comment: MARINA GEMENT OF PATIENT CARE PER NURSING PROTOCOL Performed By: #### L 501.080 ####[facility] [address] [facility] [address] Femur Min 2 Viewson 03-02-20 25 Femur Min 2 Views Normal [facility] Pelvis 1 or 2 Viewson 2024 Pelvis 1 or 2 Views Normal [facility] Bedside Glucoseon 03-01-2025 FINGERSTICK GLU 157 mg/dL High 74-106 [facility] Comment on above: Result Comment: MARINA GEMENT OF PATIENT CARE PER NURSING PROTOCOL Performed By: #### L 501.080 ####[facility] [address] [place], [address] FINGERSTICK GLU 115 mg/dL High 74-106 [facility] Comment on above: Result Comment: MARINA GEMENT OF PATIENT CARE PER NURSING PROTOCOL Performed By: #### L 501.080 ####[facility] [address] [place], [address] Venous Duplex US, Unilateral on 03-01-2025 Venous Duplex US, Unilateral Normal [facility] Venous duplex ultrasound rep ortOrdered By: Baldev Kaba on 03-01-2025 US Vein [facility] [address] [place] [address] Venous Duplex US, Unilateral 03/01/25 1257 MR#: [id number] Acct: [id number] Name: SHASHI OSWALD Rep #:[id number] : 1945 79 From: Baldev Guajardo Attending [...] Dictated: 03/01/25 1257 Date Transcribed: 07/10/25 1607 Opinion Polls Survey Worker: Signed [facility] Work Phone: Bedside Glucoseon 02-28-2025 FINGERSTICK GLU 106 mg/dL Normal 74-106 [facility] Comment on above: Result Comment: MARINA GEMENT OF PATIENT CARE PER NURSING PROTOCOL Performed By: #### L 501.080 ####[facility] [address] [place], [address] Bedside Glucoseon 02-27-2025 FINGERSTICK GLU 112 mg/dL High 74-106 [facility] Comment on above: Result Comment: MARINA GEMENT OF PATIENT CARE PER NURSING PROTOCOL Performed By: #### L 501.080 ####[facility] [address] [place], [address] FINGERSTICK GLU 131 mg/dL High 74-106 [facility] Comment on above: Result Comment: MARINA GEMENT OF PATIENT CARE PER NURSING PROTOCOL Performed By: #### L 501.080 ####[facility] [address] [place], [address] Echocardiogram study reportO rdered By: Steve Werner on 02-27-2025 Study report [facility] [address] [place] [address] Echo Complete 02/27/25 1028 MR#: [id number] Acct: [id number] Name: SHASHI OSWALD Rep #:[id number] : 1945 79 From: Steve Guajardo Attending [...] Dictated: 02/27/25 1028 Date Transcribed: 02/27/25 144 Opinion Polls Survey Worker: Signed [facility] Work Phone: Basic Metabolic Profile (BMP )on 02-26-2025 BUN/CRE 23.8 RATIO High 10-20 [facility] Comment on above: Performed By: #### L 503.0106, L100.0600, L500.2500 ####[facility] [address] [place], [address] Calcium [Mass/Vol] 8.6 mg/dL Normal 7.6-11.0 [facility] Comment on above: Performed By: #### L 503.0106, L100.0600, L500.2500 ####[facility] [address] [place], [address] Chloride [Moles/Vol] 101 mmol/L Normal 98-108 [facility] Comment on above: Performed By: #### L 503.0106, L100.0600, L500.2500 ####[facility] [address] [place], [address] CO2 [Moles/Vol] 25.0 mmol/L Normal 21.0-32.0 [facility] Comment on above: Performed By: #### L 503.0106, L100.0600, L500.2500 ####[facility] [address] [place], [address] Creatinine [Mass/Vol] 0.52 mg/dL Low 0.70-1.20 [facility] Comment on above: Performed By: #### L 503.0106, L100.0600, L500.2500 ####[facility] [address] [place], [address] ECRCL 51.41 ml/min Normal 50-250 [facility] Comment on above: Performed By: #### L 503.0106, L100.0600, L500.2500 ####[facility] [address] [place], [address] GAP 7 Normal 5-15 [facility] Comment on above: Performed By: #### L 503.0106, L100.0600, L500.2500 ####[facility] [address] [place], [address] GFR/1.73 sq M.predicted among non-blacks MDRD (S/P/Bld) [Vol rate/Area] 96 mL/min/{1.73_m2} Normal >60 [facility] Comment on above: Result Comment: mL/m in/1.73m2 CKD-EPI Creatinine Equation (2020) Performed By: #### L 503.0106, L100.0600, L500.2500 ####[facility] [address] [place], [address] Glucose [Mass/Vol] 126 mg/dL High 70-99 [facility] Comment on above: Performed By: #### L 503.0106, L100.0600, L500.2500 ####[facility] [address] [place], [address] Potassium [Moles/Vol] 3.9 mmol/L Normal 3.3-5.1 [facility] Comment on above: Performed By: #### L 503.0106, L100.0600, L500.2500 ####[facility] [address] [place], [address] Sodium [Moles/Vol] 133 mmol/L Normal 133-145 [facility] Comment on above: Performed By: #### L 503.0106, L100.0600, L500.2500 ####[facility] [address] [place], [address] Urea nitrogen [Mass/Vol] 12 mg/dL Normal 4-19 [facility] Comment on above: Performed By: #### L 503.0106, L100.0600, L500.2500 ####[facility] [address] [place], [address] Bedside Glucoseon 02-26-2025 FINGERSTICK GLU 142 mg/dL High 74-106 [facility] Comment on above: Result Comment: MARINA GEMENT OF PATIENT CARE PER NURSING PROTOCOL Performed By: #### L 501.080 ####[facility] [address] [place], [address] FINGERSTICK GLU 121 mg/dL High 74-106 [facility] Comment on above: Result Comment: MARINA GEMENT OF PATIENT CARE PER NURSING PROTOCOL Performed By: #### L 501.080 ####[facility] [address] [place], [address] Echo Completeon 02-26-2025 Echo Complete Normal [facility] Electrocardiogram reportOrde red By: Steve Werner on 02-26-2025 EKG study [facility] Services [address] [place] [address] 12 Lead EKG 02/23/25 1235 MR#: [id number] Acct: [id number] Name: SHASHI OSWALD Rep #:[id number] : 1945 79 From: Steve Werner MD Attending Dr: Dr. Katie Bah DO Status: ADM IN Ordering Dr: Katie aBh DO Date: 02/23/25 Location: Sex: F C [...] needs review Confirmed by STEVE WERNER MD ([id number]), photographic editor CHIOMA ARRIAZA ([id number]) on 02/26/2025 1:19:46 PM Referred By: Katie Bah Confirmed By: STEVE WERNER MD 02/26/25 1319 Date _ Steve Werner MD CC: Dr. Katie Bah DO; Dr. Candelario Santana MD ~ Signed [facility] Work Phone: HH, Hemoglobin AND Hematocri ton 02-26-2025 Hematocrit (Bld) [Volume fraction] 24.4 % Low 37-47 [facility] Comment on above: Performed By: #### L 503.0106, L100.0600, L500.2500 ####[facility] [address] [place], [place], [address] Hemoglobin (Bld) [Mass/Vol] 8.4 g/dL Low 12.0-15.0 [facility] Comment on above: Performed By: #### L 503.0106, L100.0600, L500.2500 ####[facility] [address] [place], [address] Vitamin B12on 02-26-2025 Cobalamin (Vitamin B12) [Mass/Vol] 366 pg/mL Normal 180-914 [facility] Comment on above: Performed By: #### L 503.0106, L100.0600, L500.2500 ####[facility] [address] [place], [address] Vitamin B12 ser/plasOrdered By: Katie Bah on 02-26-2025 Cobalamin (Vitamin B12) [Mass/Vol] 366 pg/mL 180-914 [facility] Bedside Glucoseon 02-25-2025 FINGERSTICK GLU 184 mg/dL High 74-106 [facility] Comment on above: Result Comment: MARINA GEMENT OF PATIENT CARE PER NURSING PROTOCOL Performed By: #### L 501.080 ####[facility] [address] [place], [address] FINGERSTICK GLU 121 mg/dL High 74-106 [facility] Comment on above: Result Comment: MARINA GEMENT OF PATIENT CARE PER NURSING PROTOCOL Performed By: #### L 501.080 ####[facility] [address] [place], [address] FINGERSTICK GLU 214 mg/dL High 74-106 [facility] Comment on above: Result Comment: MARINA GEMENT OF PATIENT CARE PER NURSING PROTOCOL Performed By: #### L 501.080 ####[facility] [address] [place], [address] FINGERSTICK GLU 141 mg/dL High 74-106 [facility] Comment on above: Result Comment: MARINA GEMENT OF PATIENT CARE PER NURSING PROTOCOL Performed By: #### L 501.080 ####[facility] [address] [place], [address] Urine Cultureon 02-25-2025 URC Normal [facility] Comment on above: Performed By: #### L 400.0001, M100.2200 ####[facility] [address] [place], [address] Bedside Glucoseon 02-24-2025 FINGERSTICK GLU 199 mg/dL High 74-106 [facility] Comment on above: Result Comment: MARINA GEMENT OF PATIENT CARE PER NURSING PROTOCOL Performed By: #### L 501.080 ####[facility] [address] [place], [address] FINGERSTICK GLU 152 mg/dL High 74-106 [facility] Comment on above: Result Comment: MARINA GEMENT OF PATIENT CARE PER NURSING PROTOCOL Performed By: #### L 501.080 ####[facility] [address] [facility] [address] FINGERSTICK GLU 196 mg/dL High -106 [facility] Comment on above: Result Comment: MARINA GEMENT OF PATIENT CARE PER NURSING PROTOCOL Performed By: #### L 501.080 ####[facility] [address] [place], [address] FINGERSTICK GLU 147 mg/dL High -106 [facility] Comment on above: Result Comment: MARINA GEMENT OF PATIENT CARE PER NURSING PROTOCOL Performed By: #### L 501.080 ####[facility] [address] [place], [address] 12 Lead EKGon 02-23-2025 12 Lead EKG Normal [facility] Bedside Glucoseon 02-23-2025 FINGERSTICK GLU 162 mg/dL High 74-106 [facility] Comment on above: Result Comment: MARINA GEMENT OF PATIENT CARE PER NURSING PROTOCOL Performed By: #### L 501.080 ####[facility] [address] [place], [address] FINGERSTICK GLU 183 mg/dL High [facility]106 [facility] Comment on above: Result Comment: MARINA GEMENT OF PATIENT CARE PER NURSING PROTOCOL Performed By: #### L 501.080 ####[facility] [address] [place], [address] FINGERSTICK GLU 185 mg/dL High 74-106 [facility] Comment on above: Result Comment: MARINA GEMENT OF PATIENT CARE PER NURSING PROTOCOL Performed By: #### L 501.080 ####[facility] [address] [place], [place], [address] FINGERSTICK GLU 153 mg/dL High 74-106 [facility] Comment on above: Result Comment: MARINA GEMENT OF PATIENT CARE PER NURSING PROTOCOL Performed By: #### L 501.080 ####[facility] [address] [place], [place], [address] Bilirubin Test strip Ql (U)O rdered By: Katie Bah on 02-23-2025 Bilirubin Ql (U) Negative Negative [facility] Ketones Test strip Ql (U)Ord ered By: Katie Bah on 02-23-2025 Ketones Ql (U) Negative Negative [facility] Microscopic analysis of urin e for red blood cells (RBC)Ordered By: Katie Bah on 02-23-2025 Microscopic analysis of urine for red blood cells (RBC) 0 SEEN /hpf 0-5 [facility] Mucus LM Ql (Urine sed)Order ed By: Katie Bah on 02-23-2025 Mucus Ql (Urine sed) 0 SEEN /hpf [facility] Nitrite Test strip Ql (U)Ord ered By: Katie Bah on 02-23-2025 Nitrite Ql (U) Negative Negative [facility] Protein Test strip Ql (U)Ord ered By: Katie Bah on 02-23-2025 Protein Ql (U) 30 mg/dl High Negative [facility] Squamous epithelial cells de tection in urine sediment by light microscopyOrdered By: Katie Bah on 02-23-2025 Epithelial cells.squamous LM Ql (Urine sed) 0 SEEN /hpf 5-10 [facility] Urinalysis, Completeon 02-23 BACTERIA 1+ /hpf Normal None Seen [facility] Comment on above: Order Comment: BLADD ER TAP Performed By: #### L 400.0001, M100.2200 ####[facility] [address] [place], [address] WBC 0-5 SEEN Normal 0-5 [facility] Comment on above: Order Comment: BLADD ER TAP Performed By: #### L 400.0001, M100.2200 ####[facility] [address] [place], [address] EPI,SQUAMOUS 0 SEEN Normal 5-10 [facility] Comment on above: Order Comment: BLADD ER TAP Performed By: #### L 400.0001, M100.2200 ####[facility] [address] [place], [address] Mucus Ql (Urine sed) 0 SEEN Normal [facility] Comment on above: Order Comment: BLADD ER TAP Performed By: #### L 400.0001, M100.0 ####[facility] [address] [place], [address] RBC 0 SEEN Normal 0-5 [facility] Comment on above: Order Comment: BLADD ER TAP Performed By: #### L 400.0001, M1.0 ####[facility] [address] [place], [address] RBC 0-5 SEEN Normal 0-5 [facility] Comment on above: Order Comment: CLEAN CATCH Performed By: #### L 400.0001 ####[facility] [address] [place], [address] WBC 25-50 SEEN Normal 0-5 [facility] Comment on above: Order Comment: CLEAN CATCH Performed By: #### L 400.0001 ####[facility] [address] [place], [address] BACTERIA 3+ /hpf Normal None Seen [facility] Comment on above: Order Comment: CLEAN CATCH Performed By: #### L 400.0001 ####[facility] [address] [place], [address] EPI,SQUAMOUS 0-5 SEEN Normal 5-10 [facility] Comment on above: Order Comment: CLEAN CATCH Performed By: #### L 400.0001 ####[facility] [address] [place], [address] Urine clarityOrdered By: Joya Bah on 02-23-2025 Clarity (U) Clear Clear [facility] Urine color determinationOrd ered By: Katie Bah on 02-23-2025 Color (U) Yellow Yellow [facility] Urine cultureOrdered By: Joya Bah on 02-23-2025 Bacteria identified Cx Nom (U) Escherichia coli Abnormal [facility] Urine glucose detectionOrder ed By: Katie Bah on 02-23-2025 Glucose Ql (U) 50 mg/dl High Normal [facility] Urine leukocyte esterase det ection by dipstickOrdered By: Katie Bah on 02-23-2025 Leukocyte esterase Test strip Ql (U) 100 /ul High Negative [facility] Urine pHOrdered By: Katie hanna on 02-23-2025 pH (U) 7.0 [pH] 5.0 - 8.0 [facility] Urine sediment bacteria coun t by microscopy (number/high power field)Ordered By: Katie Bah on 02-23-2025 Bacteria LM.HPF (Urine sed) [#/Area] 1 /[HPF] None Seen [facility] Urine specific gravity measu rementOrdered By: Katie Bah on 02-23-2025 Specific gravity (U) [Rel density] 1.010 1.002-1.030 [facility] Urine urobilinogen measureme ntOrdered By: Katie Bah on 02-23-2025 Urobilinogen Ql (U) Normal mg/dl Normal [facility] White blood cell countOrdere d By: Katie Bah on 02-23-2025 White blood cell count 0-5 SEEN /hpf 0-5 [facility] Absolute lymphocyte countOrd ered By: Katie Bah on 02-22-2025 Lymphocytes Auto (Unsp spec) [#/Vol] 1.94 10*3/uL 0.83-4.51 [facility] Absolute neutrophil countOrd ered By: Katie Bah on 02-22-2025 Neutrophils (Bld) [#/Vol] 5.3 10*3/uL 2.0-7.7 [facility] Automated lymphocyte count a s percentage of total leukocytesOrdered By: Katie Bah on 02-22-2025 Lymphocytes/100 WBC Auto (Unsp spec) 23.7 % 19-41 [facility] Basophil percentageOrdered B y: Katie Bah on 02-22-2025 Basophils/100 WBC (Bld) 0.4 % 0-1 [facility] Bedside Glucoseon 02-22-2025 FINGERSTICK GLU 182 mg/dL High [address] [place] [address] Comment on above: Result Comment: MARINA GEMENT OF PATIENT CARE PER NURSING PROTOCOL Performed By: #### L 501.080 ####[facility] [address] [place], [address] FINGERSTICK GLU 195 mg/dL [address] Comment on above: Result Comment: MARINA GEMENT OF PATIENT CARE PER NURSING PROTOCOL Performed By: #### L 501.080 ####[facility] [address] [place], [address] FINGERSTICK GLU 254 mg/dL [address] Comment on above: Result Comment: MARINA GEMENT OF PATIENT CARE PER NURSING PROTOCOL Performed By: #### L 501.080 ####[facility] [address] [place], [address] FINGERSTICK GLU 189 mg/dL [address] Comment on above: Result Comment: MARINA GEMENT OF PATIENT CARE PER NURSING PROTOCOL Performed By: #### L 501.080 ####[facility] [address] [place], [address] Bilirubin, totalOrdered By: Katie Bah on 02-22-2025 Bilirubin [Mass/Vol] 1.00 mg/dL 0.00-1.30 [facility] CBC W/Diff, Automatedon Absolute Lymph 1.94 X10 3/uL Normal 0.83-4.51 [facility] Comment on above: Performed By: #### L 501.2300, L501.5200, L100.0100, L500.4050 ####[facility] [address] [place], [address] Absolute Neut 5.3 X10 3/uL Normal 2.0-7.7 [facility] Comment on above: Performed By: #### L 501.2300, L501.5200, L100.0100, L500.4050 ####[facility] [address] [place], [address] Basophils/100 WBC (Bld) 0.4 % Normal 0-1 [facility] Comment on above: Performed By: #### L 501.2300, L501.5200, L100.0100, L500.4050 ####[facility] [address] [place], [address] Eosinophils/100 WBC (Bld) 3.0 % Normal 0-5 [facility] Comment on above: Performed By: #### L 501.2300, L501.5200, L100.0100, L500.4050 ####[facility] [address] [place], [address] Erythrocyte distribution width (RBC) [Ratio] 15.4 % High 11.6-14.6 [facility] Comment on above: Performed By: #### L 501.2300, L501.5200, L100.0100, L500.4050 ####[facility] [address] [place], [address] Hematocrit (Bld) [Volume fraction] 24.1 % Low 37-47 [facility] Comment on above: Performed By: #### L 501.2300, L501.5200, L100.0100, L500.4050 ####[facility] [address] [place], [address] Hemoglobin (Bld) [Mass/Vol] 8.5 g/dL Low 12.0-15.0 [facility] Comment on above: Performed By: #### L 501.2300, L501.5200, L100.0100, L500.4050 ####[facility] [address] [place], [address] IG% 0.700 Normal 0.0-0.9 [facility] Comment on above: Result Comment: IG% - Immature Granulocytes (promyelocytes, myelocytes andmetamyelocytes) > 1% indicates that a LEFT SHIFT is Present. Performed By: #### L 501.2300, L501.5200, L100.0100, L500.4050 ####[facility] [address] [place], [address] Lymphocytes/100 WBC (Bld) 23.7 % Normal 19-41 [facility] Comment on above: Performed By: #### L 501.2300, L501.5200, L100.0100, L500.4050 ####[facility] [address] [place], [address] MCH (RBC) [Entitic mass] 31.5 pg Normal 27.0-32.0 [facility] Comment on above: Performed By: #### L 501.2300, L501.5200, L100.0100, L500.4050 ####[facility] [address] [place], [address] MCHC (RBC) [Mass/Vol] 35.3 g/dL Normal 32-36 [facility] Comment on above: Performed By: #### L 501.2300, L501.5200, L100.0100, L500.4050 ####[facility] [address] [place], [address] MCV (RBC) [Entitic vol] 89.3 fL Normal 81-99 [facility] Comment on above: Performed By: #### L 501.2300, L501.5200, L100.0100, L500.4050 ####[facility] [address] [place], [address] Monocytes/100 WBC (Bld) 7.2 % Normal 0-10 [facility] Comment on above: Performed By: #### L 501.2300, L501.5200, L100.0100, L500.4050 ####[facility] [address] [place], [address] Neutrophils/100 WBC (Bld) 65.0 % Normal 47-70 [facility] Comment on above: Performed By: #### L 501.2300, L501.5200, L100.0100, L500.4050 ####[facility] [address] [place], [address] Nucleated RBC (Bld) [#/Vol] 0 10*3/uL Normal 0-5 [facility] Comment on above: Performed By: #### L 501.2300, L501.5200, L100.0100, L500.4050 ####[facility] [address] [place], [address] Platelet mean volume (Bld) [Entitic vol] 8.8 fL Normal 6.2-12.0 [facility] Comment on above: Performed By: #### L 501.2300, L501.5200, L100.0100, L500.4050 ####[facility] [address] [place], [address] Platelets (Bld) [#/Vol] 282 10*3/uL Normal 150-450 [facility] Comment on above: Performed By: #### L 501.2300, L501.5200, L100.0100, L500.4050 ####[facility] [address] [place], [address] RBC (Bld) [#/Vol] 2.70 10*6/uL Low 4.2-5.4 [facility] Comment on above: Performed By: #### L 501.2300, L501.5200, L100.0100, L500.4050 ####[facility] [address] [place], [address] RDW SD 49.5 fl High 35.1-43.9 [facility] Comment on above: Performed By: #### L 501.2300, L501.5200, L100.0100, L500.4050 ####[facility] [address] [place], [address] WBC (Bld) [#/Vol] 8.2 10*3/uL Normal 4.4-11.0 [facility] Comment on above: Performed By: #### L 501.2300, L501.5200, L100.0100, L500.4050 ####[facility] [address] [place], [address] Comprehensive Metabolic [facility] 02-22-2025 Albumin [Mass/Vol] 2.6 g/dL Low 3.4-4.8 [facility] Comment on above: Performed By: #### L 501.2300, L501.5200, L100.0100, L500.4050 ####[facility] [address] [place], [address] Albumin/Globulin [Mass ratio] 0.9 {ratio} Normal 0.9-2.4 [facility] Comment on above: Performed By: #### L 501.2300, L501.5200, L100.0100, L500.4050 ####[facility] [address] [place], [address] ALK PHOS 106 U/L High 35-104 [facility] Comment on above: Performed By: #### L 501.2300, L501.5200, L100.0100, L500.4050 ####[facility] [address] [place], [address] ALT [Catalytic activity/Vol] U/L Normal <=34 [facility] Comment on above: Performed By: #### L 501.2300, L501.5200, L100.0100, L500.4050 ####[facility] [address] [place], [address] AST [Catalytic activity/Vol] 31 U/L Normal <=31 [facility] Comment on above: Performed By: #### L 501.2300, L501.5200, L100.0100, L500.4050 ####[facility] [address] [place], [address] Bilirubin [Mass/Vol] 1.00 mg/dL Normal 0.00-1.30 [facility] Comment on above: Performed By: #### L 501.2300, L501.5200, L100.0100, L500.4050 ####[facility] [address] [place], [address] BUN/CRE 32.5 RATIO High 10-20 [facility] Comment on above: Performed By: #### L 501.2300, L501.5200, L100.0100, L500.4050 ####[facility] [address] [place], [address] Calcium [Mass/Vol] 8.6 mg/dL Normal 7.6-11.0 [facility] Comment on above: Performed By: #### L 501.2300, L501.5200, L100.0100, L500.4050 ####[facility] [address] [place], [address] Chloride [Moles/Vol] 99 mmol/L Normal 98-108 [facility] Comment on above: Performed By: #### L 501.2300, L501.5200, L100.0100, L500.4050 ####[facility] [address] [place], [address] CO2 [Moles/Vol] 23.6 mmol/L Normal 21.0-32.0 [facility] Comment on above: Performed By: #### L 501.2300, L501.5200, L100.0100, L500.4050 ####[facility] [address] [place], [address] Creatinine [Mass/Vol] 0.47 mg/dL Low 0.70-1.20 [facility] Comment on above: Performed By: #### L 501.2300, L501.5200, L100.0100, L500.4050 ####[facility] [address] [place], [address] ECRCL 51.41 ml/min Normal 50-250 [facility] Comment on above: Performed By: #### L 501.2300, L501.5200, L100.0100, L500.4050 ####[facility] [address] [place], [address] GAP 8 Normal 5-15 [facility] Comment on above: Performed By: #### L 501.2300, L501.5200, L100.0100, L500.4050 ####[facility] [address] [place], [address] GFR/1.73 sq M.predicted among non-blacks MDRD (S/P/Bld) [Vol rate/Area] 98 mL/min/{1.73_m2} Normal >60 [facility] Comment on above: Result Comment: mL/m in/1.73m2 CKD-EPI Creatinine Equation (2020) Performed By: #### L 501.2300, L501.5200, L100.0100, L500.4050 ####[facility] [address] [place], [address] Globulin (S) [Mass/Vol] 3.0 g/dL Normal 2.2-4.2 [facility] Comment on above: Performed By: #### L 501.2300, L501.5200, L100.0100, L500.4050 ####[facility] [address] [place], [address] Glucose [Mass/Vol] 203 mg/dL High 70-99 [facility] Comment on above: Performed By: #### L 501.2300, L501.5200, L100.0100, L500.4050 ####[facility] [address] [place], [address] Potassium [Moles/Vol] 4.1 mmol/L Normal 3.3-5.1 [facility] Comment on above: Performed By: #### L 501.2300, L501.5200, L100.0100, L500.4050 ####[facility] [address] [place], [address] Sodium [Moles/Vol] 131 mmol/L Low 133-145 [facility] Comment on above: Performed By: #### L 501.2300, L501.5200, L100.0100, L500.4050 ####[facility] [address] [place], [address] T PROT 5.6 g/dL Low 5.9-8.4 [facility] Comment on above: Performed By: #### L 501.2300, L501.5200, L100.0100, L500.4050 ####[facility] [address] [place], [address] Urea nitrogen [Mass/Vol] 15 mg/dL Normal 4-19 [facility] Comment on above: Performed By: #### L 501.2300, L501.5200, L100.0100, L500.4050 ####[facility] [address] [place], [place], [id number] Eosinophil percentageOrdered By: Katie Bah on 02-22-2025 Eosinophils/100 WBC (Bld) 3.0 % 0-5 [facility] Erythrocyte distribution wid th ratioOrdered By: Katie Bah on 02-22-2025 Erythrocyte distribution width (RBC) [Ratio] 15.4 % High 11.6-14.6 [facility] Erythrocyte distribution wid th standard deviationOrdered By: Katie Bah on 02-22-2025 Erythrocyte distribution width (RBC) [Ratio] 49.5 fl High 35.1-43.9 [facility] Ferritinon 02-22-2025 Ferritin [Mass/Vol] 217 ng/mL Normal 22-378 [facility] Comment on above: Performed By: #### L 503.6030, L503.5750 ####[facility] [address] [place], [address] Immature granulocytes/100 WB C Auto (Bld)Ordered By: Katie Kimjaquan on 02-22-2025 Immature granulocytes/100 WBC (Bld) 0.700 % 0.0-0.9 [facility] Comment on above: IG% - Immature Granu locytes (promyelocytes, myelocytes and metamyelocytes) > 1% indicates that a LEFT SHIFT is Present. Iron measurement (mass/mass) Ordered By: Katie Kimjaquan on 02-22-2025 Iron (Unsp spec) [Mass/Mass] 69 ug/dL 50-170 [facility] Iron+Iron Binding Capacityon 02-22-2025 TIBC 197 ug/dL Low 250-450 [facility] Comment on above: Performed By: #### L 503.6030, L503.5950 ####[facility] [address] [place], [place], [id number] Laboratory - Chemistry and C hemistry - challengeOrdered By: Katie Kimjaquan on 02-22-2025 AST [Catalytic activity/Vol] 31 U/L <32 [facility] MCV (mean corpuscular volume ) determinationOrdered By: Katie Olvin on 02-22-2025 MCV (RBC) [Entitic vol] 89.3 fL 81-99 [facility] Magnesiumon 02-22-2025 Magnesium [Mass/Vol] 1.5 mg/dL Normal 1.5-2.2 [facility] Comment on above: Performed By: #### L 501.2300, L501.5200, L100.0100, L500.4050 ####[facility] [address] [place], [address] Mean corpuscular hemoglobin (MCH) determinationOrdered By: Katie Bah on 02-22-2025 MCH (RBC) [Entitic mass] 31.5 pg 27.0-32.0 [facility] Mean corpuscular hemoglobin concentration (MCHC) determinationOrdered By: Katie Bah on 02-22-2025 MCHC (RBC) [Mass/Vol] 35.3 g/dL 32-36 [facility] Mean platelet volume determi nationOrdered By: Katie Bah on 02-22-2025 Platelet mean volume (Bld) [Entitic vol] 8.8 fL 6.2-12.0 [facility] Monocyte percentageOrdered B y: Katie Bah on 02-22-2025 Monocytes/100 WBC (Bld) 7.2 % 0-10 [facility] Neutrophil percentageOrdered By: Katie Bah on 02-22-2025 Neutrophils/100 WBC (Bld) 65.0 % 47-70 [facility] No Panel InformationOrdered By: Katie Bah on 02-22-2025 Unsaturated Iron Binding Capacity 128 ug/dL Low 228-428 [facility] Nucleated red blood cell per centageOrdered By: Katie Bah on 02-22-2025 Nucleated RBC/100 WBC (Bld) [Ratio] 0 % 0-5 [facility] Osmolality urOrdered By: Joya Bah on 02-22-2025 Osmolality (U) [Osmolality] 176 mOsm/KG >50 [facility] Comment on above: Normal Urine Referen ce Ranges Random: 50 - 1200 mOsm/kg H20 depending on fluid intake Random: >850 mOsm/kg after 12 hour fluid restriction 24 hour: ~300 - 900 mOsm/kg H2O Osmolality, Serumon 02-23-20 25 OSMOLALITY,SER 283 mOsm/KG Normal 280-301 [facility] Comment on above: Performed By: #### L 501.7300 ####[facility] [address] [place], [address] Osmolality, Urineon 02-23-20 25 OSMOLALITY,UR 176 mOsm/KG Normal [facility] Comment on above: Result Comment: Norm al Urine Reference Ranges Random: 50 - 1200 mOsm/kg H20 depending on fluid intake Random: >850 mOsm/kg after 12 hour fluid restriction 24 hour: 300 - 900 mOsm/kg H2O Performed By: #### L 501.7400, L501.5500 ####[facility] [address] [place], [address] Phosphoruson 02-22-2025 Phosphate [Mass/Vol] 3.2 mg/dL Normal 2.7-4.5 [facility] Comment on above: Performed By: #### L 501.2300, L501.5200, L100.0100, L500.4050 ####[facility] [address] [place], [address] Platelet countOrdered By: Shahida Bah on 02-22-2025 Platelets (Bld) [#/Vol] 282 10*3/uL 150-450 [facility] RBC Auto (Bld) [#/Vol]Ordere d By: Katie Bah on 02-22-2025 RBC (Bld) [#/Vol] 2.70 10*6/uL Low 4.2-5.4 [facility] Serum globulin measurementOr dered By: Katie Bah on 02-22-2025 Globulin (S) [Mass/Vol] 3.0 g/dL 2.2-4.2 [facility] Serum or plasma alanine cornejo otransferase (ALT) measurementOrdered By: Katie Bah on 02-22-2025 ALT [Catalytic activity/Vol] U/L <35 [facility] Serum or plasma albumin sabino urement (mass/volume)Ordered By: Katie Bah on 02-22-2025 Albumin [Mass/Vol] 2.6 g/dL Low 3.4-4.8 [facility] Serum or plasma albumin/glob ulin mass ratioOrdered By: Katie Kimjaquan on 02-22-2025 Albumin/Globulin [Mass ratio] 0.9 {ratio} 0.9-2.4 [facility] Serum or plasma alkaline shaista sphatase measurementOrdered By: Katie Kimjaquan on 02-22-2025 ALP [Catalytic activity/Vol] 106 U/L High 35-104 [facility] Serum or plasma ferritin uzma surement (mass/volume)Ordered By: Katie Olvin on 02-22-2025 Ferritin [Mass/Vol] 217 ng/mL 22-378 [facility] Serum or plasma iron saturat ion measurement (mass fraction)Ordered By: Katie Olvin on 02-22-2025 Iron saturation [Mass fraction] 35.0 % 13-59 [facility] Stool Occult Blood iFOBon STOB Positive Normal [facility] Comment on above: Performed By: #### M 100.7900 ####[facility] [address] [place], [place], [id number] Stool gastrointestinal hemog lobin detection by immunologic methodOrdered By: Katie Kimjaquan on 02-22-2025 Lower GI hemoglobin IA Ql (Stl) Positive Abnormal [facility] Total proteinOrdered By: Joya sultana Olvin on 02-22-2025 Protein [Mass/Vol] 5.6 g/dL Low 5.9-8.4 [facility] Urinalysis, Completeon 02-22 Mucus Ql (Urine sed) 0 SEEN Normal [facility] Comment on above: Order Comment: CLEAN CATCH Performed By: #### L 400.0001 ####[facility] [address] [place], [place], [id number] Urine Sodiumon 02-22-2025 UR NA < 20 Normal Not Establ. [facility] Comment on above: Performed By: #### L 501.7400, L501.5500 ####[facility] [address] [place], [address] Urine sodium measurement (mo les/volume)Ordered By: Katie Bah on 02-22-2025 Sodium (U) [Moles/Vol] mmol/L Not Establ. [facility] White blood cell (WBC) count Ordered By: Katie Bah on 02-22-2025 WBC (Bld) [#/Vol] 8.2 10*3/uL 4.4-11.0 [facility] Bedside Glucoseon 02-21-2025 FINGERSTICK GLU 192 mg/dL High [address] [place] [address] Comment on above: Result Comment: MARINA GEMENT OF PATIENT CARE PER NURSING PROTOCOL Performed By: #### L 501.080 ####[facility] [address] [place], [address] FINGERSTICK GLU 242 mg/dL High [address] [place] [address] Comment on above: Result Comment: MARINA GEMENT OF PATIENT CARE PER NURSING PROTOCOL Performed By: #### L 501.080 ####[facility] [address] [place], [address] FINGERSTICK GLU 245 mg/dL High [address] [place] [address] Comment on above: Result Comment: MARINA GEMENT OF PATIENT CARE PER NURSING PROTOCOL Performed By: #### L 501.080 ####[facility] [address] [place], [address] FINGERSTICK GLU 212 mg/dL [address] Comment on above: Result Comment: MARINA GEMENT OF PATIENT CARE PER NURSING PROTOCOL Performed By: #### L 501.080 ####[facility] [address] [place], [address] [facility] deOrdered By: Gia Owusu on 02-21-2025 Glucose [Mass/Vol] 245 mg/dL High [facility] Comment on above: MANAGEMENT OF PATIEN T CARE PER NURSING PROTOCOL Hemoglobinon 02-21-2025 Hemoglobin (Bld) [Mass/Vol] 8.6 g/dL Low 12.0-15.0 [facility] Comment on above: Performed By: #### L 100.1300 ####[facility] [address] [place], [address] Hemoglobin measurementOrdere d By: Gia Owusu on 02-21-2025 Hemoglobin (Bld) [Mass/Vol] 8.6 g/dL Low 12.0-15.0 [facility] Bedside Glucoseon 02-20-2025 FINGERSTICK GLU 209 mg/dL High 74-106 [facility] Comment on above: Result Comment: MARINA GEMENT OF PATIENT CARE PER NURSING PROTOCOL Performed By: #### L 501.080 ####[facility] [address] [place], [address] FINGERSTICK GLU 180 mg/dL High -[address] [place] [address] Comment on above: Result Comment: MARINA GEMENT OF PATIENT CARE PER NURSING PROTOCOL Performed By: #### L 501.080 ####[facility] [address] [place], [address] FINGERSTICK GLU 287 mg/dL High [address] [place] [address] Comment on above: Result Comment: MARINA GEMENT OF PATIENT CARE PER NURSING PROTOCOL Performed By: #### L 501.080 ####[facility] [address] [place], [address] FINGERSTICK GLU 161 mg/dL High [address] [place] [address] Comment on above: Result Comment: MARINA GEMENT OF PATIENT CARE PER NURSING PROTOCOL Performed By: #### L 501.080 ####[facility] [address] [place], [address] Hemoglobinon 02-20-2025 Hemoglobin (Bld) [Mass/Vol] 8.9 g/dL Low 12.0-15.0 [facility] Comment on above: Performed By: #### L 100.1300 ####[facility] [address] [place], [address] Hemoglobin (Bld) [Mass/Vol] 8.6 g/dL Low 12.0-15.0 [facility] Comment on above: Performed By: #### L 100.1300 ####[facility] [address] [place], [address] Anion gap in Serum or Plasma Ordered By: Gia Owusu on 02-19-2025 Anion gap [Moles/Vol] 10 mmol/L 5-15 [facility] BUN/creatinine ratioOrdered By: Gia Owusu on 02-19-2025 Urea nitrogen/Creatinine [Mass ratio] 23.4 mg/mg High 10-20 [facility] Basic Metabolic Profile (BMP )on 02-19-2025 BUN/CRE 23.4 RATIO High - [facility] Comment on above: Performed By: #### L 500.2500, L100.0500 ####[facility] [address] [place], [address] Calcium [Mass/Vol] 8.4 mg/dL Normal 7.6-11.0 [facility] Comment on above: Performed By: #### L 500.2500, L100.0500 ####[facility] [address] [place], [address] Chloride [Moles/Vol] 103 mmol/L Normal 98-108 [facility] Comment on above: Performed By: #### L 500.2500, L100.0500 ####[facility] [address] [place], [address] CO2 [Moles/Vol] 21.3 mmol/L Normal 21.0-32.0 [facility] Comment on above: Performed By: #### L 500.2500, L100.0500 ####[facility] [address] [place], [address] Creatinine [Mass/Vol] 0.51 mg/dL Low 0.70-1.20 [facility] Comment on above: Performed By: #### L 500.2500, L100.0500 ####[facility] [address] [place], [address] ECRCL 44.44 ml/min Low 50-250 [facility] Comment on above: Performed By: #### L 500.2500, L100.0500 ####[facility] [address] [place], [address] GAP 10 Normal 5-15 [facility] Comment on above: Performed By: #### L 500.2500, L100.0500 ####[facility] [address] [place], [address] GFR/1.73 sq M.predicted among non-blacks MDRD (S/P/Bld) [Vol rate/Area] 96 mL/min/{1.73_m2} Normal >60 [facility] Comment on above: Result Comment: mL/m in/1.73m2 CKD-EPI Creatinine Equation (2020) Performed By: #### L 500.2500, L100.0500 ####[facility] [address] [place], [address] Glucose [Mass/Vol] 165 mg/dL High 70-99 [facility] Comment on above: Performed By: #### L 500.2500, L100.0500 ####[facility] [address] [place], [address] Potassium [Moles/Vol] 3.7 mmol/L Normal 3.3-5.1 [facility] Comment on above: Result Comment: Hemo lysis present, Results??could be affected.?? Performed By: #### L 500.2500, L100.0500 ####[facility] [address] [place], [address] Sodium [Moles/Vol] 134 mmol/L Normal 133-145 [facility] Comment on above: Performed By: #### L 500.2500, L100.0500 ####[facility] [address] [place], [address] Urea nitrogen [Mass/Vol] 12 mg/dL Normal 4-19 [facility] Comment on above: Performed By: #### L 500.2500, L100.0500 ####[facility] [address] [place], [address] Bedside Glucoseon 02-19-2025 FINGERSTICK GLU 202 mg/dL High 74-106 [facility] Comment on above: Result Comment: MARINA GEMENT OF PATIENT CARE PER NURSING PROTOCOL Performed By: #### L 501.080 ####[facility] [address] [place], [address] FINGERSTICK GLU 179 mg/dL High 74-106 [facility] Comment on above: Result Comment: MARINA GEMENT OF PATIENT CARE PER NURSING PROTOCOL Performed By: #### L 501.080 ####[facility] [address] [place], [address] FINGERSTICK GLU 276 mg/dL High 74-106 [facility] Comment on above: Result Comment: MARINA GEMENT OF PATIENT CARE PER NURSING PROTOCOL Performed By: #### L 501.080 ####[facility] [address] [place], [address] FINGERSTICK GLU 162 mg/dL High 74-106 [facility] Comment on above: Result Comment: MARINA GEMENT OF PATIENT CARE PER NURSING PROTOCOL Performed By: #### L 501.080 ####[facility] [address] [place], [address] CBC-Complete Blood Cnt No Di ffon 02-19-2025 Erythrocyte distribution width (RBC) [Ratio] 15.2 % High 11.6-14.6 [facility] Comment on above: Performed By: #### L 500.2500, L100.0500 ####[facility] [address] [place], [address] Hematocrit (Bld) [Volume fraction] 26.2 % Low 37-47 [facility] Comment on above: Performed By: #### L 500.2500, L100.0500 ####[facility] [address] [place], [address] Hemoglobin (Bld) [Mass/Vol] 9.1 g/dL Low 12.0-15.0 [facility] Comment on above: Performed By: #### L 500.2500, L100.0500 ####[facility] [address] [place], [address] MCH (RBC) [Entitic mass] 30.8 pg Normal 27.0-32.0 [facility] Comment on above: Performed By: #### L 500.2500, L100.0500 ####[facility] [address] [place], [address] MCHC (RBC) [Mass/Vol] 34.7 g/dL Normal 32-36 [facility] Comment on above: Performed By: #### L 500.2500, L100.0500 ####[facility] [address] [place], [address] MCV (RBC) [Entitic vol] 88.8 fL Normal 81-99 [facility] Comment on above: Performed By: #### L 500.2500, L100.0500 ####[facility] [address] [place], [address] Platelet mean volume (Bld) [Entitic vol] 9.6 fL Normal 6.2-12.0 [facility] Comment on above: Performed By: #### L 500.2500, L100.0500 ####[facility] [address] [place], [address] Platelets (Bld) [#/Vol] 262 10*3/uL Normal 150-450 [facility] Comment on above: Performed By: #### L 500.2500, L100.0500 ####[facility] [address] [place], [address] RBC (Bld) [#/Vol] 2.95 10*6/uL Low 4.2-5.4 [facility] Comment on above: Performed By: #### L 500.2500, L100.0500 ####[facility] [address] [place], [address] RDW SD 47.0 fl High 35.1-43.9 [facility] Comment on above: Performed By: #### L 500.2500, L100.0500 ####[facility] [address] [place], [address] WBC (Bld) [#/Vol] 10.0 10*3/uL Normal 4.4-11.0 [facility] Comment on above: Performed By: #### L 500.2500, L100.0500 ####[facility] [address] [place], [address] Carbon dioxide, total [Moles /volume] in Central venous bloodOrdered By: Gia Owusu on 02-19-2025 CO2 [Moles/Vol] 21.3 mmol/L 21.0-32.0 [facility] Chloride assayOrdered By: Ahsan Ouwsu on 02-19-2025 Chloride [Moles/Vol] 103 mmol/L 98-108 [facility] Erythrocyte distribution wid th ratioOrdered By: Gia Owusu on 02-19-2025 Erythrocyte distribution width (RBC) [Ratio] 15.2 % High 11.6-14.6 [facility] Erythrocyte distribution wid th standard deviationOrdered By: Gia Owusu on 02-19-2025 Erythrocyte distribution width (RBC) [Ratio] 47.0 fl High 35.1-43.9 [facility] Glomerular filtration rate ( GFR) estimation/1.73 sq m using serum, plasma, or whole bOrdered By: Gia Owusu on 02-19-2025 GFR/1.73 sq M.predicted among non-blacks MDRD (S/P/Bld) [Vol rate/Area] 96 mL/min/{1.73_m2} >60 [facility] Comment on above: mL/min/1.73m2 CKD-EP I Creatinine Equation (2020) Hematocrit Auto (Bld) [Volum e fraction]Ordered By: Gia Owusu on 02-19-2025 Hematocrit (Bld) [Volume fraction] 26.2 % Low 37-47 [facility] MCV (mean corpuscular volume ) determinationOrdered By: Gia Owusu on 02-19-2025 MCV (RBC) [Entitic vol] 88.8 fL 81-99 [facility] MR/WURQADAV5md 02-19-2025 MR/POSTOPAN2 Normal [facility] Mean corpuscular hemoglobin (MCH) determinationOrdered By: Gia Owusu on 02-19-2025 MCH (RBC) [Entitic mass] 30.8 pg 27.0-32.0 [facility] Mean corpuscular hemoglobin concentration (MCHC) determinationOrdered By: Gia Owusu on 02-19-2025 MCHC (RBC) [Mass/Vol] 34.7 g/dL 32-36 [facility] Mean platelet volume determi nationOrdered By: Gia Owusu on 02-19-2025 Platelet mean volume (Bld) [Entitic vol] 9.6 fL 6.2-12.0 [facility] Platelet countOrdered By: Ahsan Owusu on 02-19-2025 Platelets (Bld) [#/Vol] 262 10*3/uL 150-450 [facility] Potassium measurement (mass/ volume)Ordered By: Gia Owusu on 02-19-2025 Potassium (Unsp spec) [Mass/Vol] 3.7 mmol/L 3.3-5.1 [facility] Comment on above: Hemolysis present, R esults could be affected. RBC Auto (Bld) [#/Vol]Ordere d By: Gia Owusu on 02-19-2025 RBC (Bld) [#/Vol] 2.95 10*6/uL Low 4.2-5.4 [facility] Serum creatinine measurement (mass/volume)Ordered By: Gia Owusu on 02-19-2025 Creatinine [Mass/Vol] 0.51 mg/dL Low 0.70-1.20 [facility] Serum glucose measurement (m ass/volume)Ordered By: Gia Owusu on 02-19-2025 Glucose [Mass/Vol] 165 mg/dL High 70-99 [facility] Serum or plasma calcium sabino urement (mass/volume)Ordered By: Gia Owusu on 02-19-2025 Calcium [Mass/Vol] 8.4 mg/dL 7.6-11.0 [facility] Serum or plasma urea nitroge n measurement (mass/volume)Ordered By: Gia Owusu on 02-19-2025 Urea nitrogen [Mass/Vol] 12 mg/dL 4-19 [facility] Sodium levelOrdered By: Delmy Owusu on 02-19-2025 Sodium [Moles/Vol] 134 mmol/L 133-145 [facility] White blood cell (WBC) count Ordered By: Gia Owusu on 02-19-2025 WBC (Bld) [#/Vol] 10.0 10*3/uL 4.4-11.0 [facility] Absolute lymphocyte countOrd ered By: Gia Owusu on 02-18-2025 Lymphocytes Auto (Unsp spec) [#/Vol] 2.07 10*3/uL 0.83-4.51 [facility] Absolute neutrophil countOrd ered By: Gia Owusu on 02-18-2025 Neutrophils (Bld) [#/Vol] 5.8 10*3/uL 2.0-7.7 [facility] Automated lymphocyte count a s percentage of total leukocytesOrdered By: Gia Owusu on 02-18-2025 Lymphocytes/100 WBC Auto (Unsp spec) 22.6 % 19-41 [facility] Basophil percentageOrdered B y: Gia Owusu on 02-18-2025 Basophils/100 WBC (Bld) 0.4 % 0-1 [facility] Bedside Glucoseon 02-18-2025 FINGERSTICK GLU 196 mg/dL High 74-106 [facility] Comment on above: Result Comment: MARINA FERNANDEZ OF PATIENT CARE PER NURSING PROTOCOL Performed By: #### L 501.080 ####[facility] [address] [place], [address] FINGERSTICK GLU 187 mg/dL High 74-106 [facility] Comment on above: Result Comment: MARINA GEMENT OF PATIENT CARE PER NURSING PROTOCOL Performed By: #### L 501.080 ####[facility] [address] [place], [address] FINGERSTICK GLU 285 mg/dL High 74-106 [facility] Comment on above: Result Comment: MARINA GEMENT OF PATIENT CARE PER NURSING PROTOCOL Performed By: #### L 501.080 ####[facility] [address] [place], [address] FINGERSTICK GLU 188 mg/dL High 74-106 [facility] Comment on above: Result Comment: MARINA GEMENT OF PATIENT CARE PER NURSING PROTOCOL Performed By: #### L 501.080 ####[facility] [address] [place], [address] CBC W/Diff, Automatedon 06-2 Absolute Lymph 2.07 X10 3/uL Normal 0.83-4.51 [facility] Comment on above: Performed By: #### L 100.0100 ####[facility] [address] [place], [address] Absolute Neut 5.8 X10 3/uL Normal 2.0-7.7 [facility] Comment on above: Performed By: #### L 100.0100 ####[facility] [address] [place], [address] Basophils/100 WBC (Bld) 0.4 % Normal 0-1 [facility] Comment on above: Performed By: #### L 100.0100 ####[facility] [address] [place], [address] Eosinophils/100 WBC (Bld) 2.4 % Normal 0-5 [facility] Comment on above: Performed By: #### L 100.0100 ####[facility] [address] [place], [address] Erythrocyte distribution width (RBC) [Ratio] 15.3 % High 11.6-14.6 [facility] Comment on above: Performed By: #### L 100.0100 ####[facility] [address] [place], [address] Hematocrit (Bld) [Volume fraction] 26.8 % Low 37-47 [facility] Comment on above: Performed By: #### L 100.0100 ####[facility] [address] [place], [address] Hemoglobin (Bld) [Mass/Vol] 9.6 g/dL Low 12.0-15.0 [facility] Comment on above: Performed By: #### L 100.0100 ####[facility] [address] [place], [address] IG% 0.500 Normal 0.0-0.9 [facility] Comment on above: Result Comment: IG% - Immature Granulocytes (promyelocytes, myelocytes andmetamyelocytes) > 1% indicates that a LEFT SHIFT is Present. Performed By: #### L 100.0100 ####[facility] [address] [place], [address] Lymphocytes/100 WBC (Bld) 22.6 % Normal 19-41 [facility] Comment on above: Performed By: #### L 100.0100 ####[facility] [address] [place], [address] MCH (RBC) [Entitic mass] 31.1 pg Normal 27.0-32.0 [facility] Comment on above: Performed By: #### L 100.0100 ####[facility] [address] [place], [address] MCHC (RBC) [Mass/Vol] 35.8 g/dL Normal 32-36 [facility] Comment on above: Performed By: #### L 100.0100 ####[facility] [address] [place], [address] MCV (RBC) [Entitic vol] 86.7 fL Normal 81-99 [facility] Comment on above: Performed By: #### L 100.0100 ####[facility] [address] [place], [address] Monocytes/100 WBC (Bld) 10.4 % High 0-10 [facility] Comment on above: Performed By: #### L 100.0100 ####[facility] [address] [place], [address] Neutrophils/100 WBC (Bld) 63.7 % Normal 47-70 [facility] Comment on above: Performed By: #### L 100.0100 ####[facility] [address] [place], [address] Nucleated RBC (Bld) [#/Vol] 0 10*3/uL Normal 0-5 [facility] Comment on above: Performed By: #### L 100.0100 ####[facility] [address] [place], [address] Platelet mean volume (Bld) [Entitic vol] 9.4 fL Normal 6.2-12.0 [facility] Comment on above: Performed By: #### L 100.0100 ####[facility] [address] [place], [address] Platelets (Bld) [#/Vol] 247 10*3/uL Normal 150-450 [facility] Comment on above: Performed By: #### L 100.0100 ####[facility] [address] [place], [address] RBC (Bld) [#/Vol] 3.09 10*6/uL Low 4.2-5.4 [facility] Comment on above: Performed By: #### L 100.0100 ####[facility] [address] [place], [address] RDW SD 45.9 fl High 35.1-43.9 [facility] Comment on above: Performed By: #### L 100.0100 ####[facility] [address] [place], [address] WBC (Bld) [#/Vol] 9.2 10*3/uL Normal 4.4-11.0 [facility] Comment on above: Performed By: #### L 100.0100 ####[facility] [address] [place], [address] Eosinophil percentageOrdered By: Gia Owusu on 02-18-2025 Eosinophils/100 WBC (Bld) 2.4 % 0-5 [facility] Immature granulocytes/100 WB C Auto (Bld)Ordered By: Gia Owusu on 02-18-2025 Immature granulocytes/100 WBC (Bld) 0.500 % 0.0-0.9 [facility] Comment on above: IG% - Immature Granu locytes (promyelocytes, myelocytes and metamyelocytes) > 1% indicates that a LEFT SHIFT is Present. Monocyte percentageOrdered B y: Gia Owusu on 02-18-2025 Monocytes/100 WBC (Bld) 10.4 % High 0-10 [facility] Neutrophil percentageOrdered By: Gia Owusu on 02-18-2025 Neutrophils/100 WBC (Bld) 63.7 % 47-70 [facility] Nucleated red blood cell per centageOrdered By: Gia Owusu on 02-18-2025 Nucleated RBC/100 WBC (Bld) [Ratio] 0 % 0-5 [facility] Basic Metabolic Profile (BMP )on 02-17-2025 BUN/CRE 28.5 RATIO High 10-20 [facility] Comment on above: Performed By: #### L 100.0100, L500.2500 ####[facility] [address] [place], [address] Calcium [Mass/Vol] 8.3 mg/dL Normal 7.6-11.0 [facility] Comment on above: Performed By: #### L 100.0100, L500.2500 ####[facility] [address] [place], [address] Chloride [Moles/Vol] 105 mmol/L Normal 98-108 [facility] Comment on above: Performed By: #### L 100.0100, L500.2500 ####[facility] [address] [place], [address] CO2 [Moles/Vol] 20.2 mmol/L Low 21.0-32.0 [facility] Comment on above: Performed By: #### L 100.0100, L500.2500 ####[facility] [address] [place], [address] Creatinine [Mass/Vol] 0.61 mg/dL Low 0.70-1.20 [facility] Comment on above: Performed By: #### L 100.0100, L500.2500 ####[facility] [address] [place], [address] ECRCL 44.44 ml/min Low 50-250 [facility] Comment on above: Performed By: #### L 100.0100, L500.2500 ####[facility] [address] [place], [address] GAP 11 Normal 5-15 [facility] Comment on above: Performed By: #### L 100.0100, L500.2500 ####[facility] [address] [place], [address] GFR/1.73 sq M.predicted among non-blacks MDRD (S/P/Bld) [Vol rate/Area] 92 mL/min/{1.73_m2} Normal >60 [facility] Comment on above: Result Comment: mL/m in/1.73m2 CKD-EPI Creatinine Equation (2020) Performed By: #### L 100.0100, L500.2500 ####[facility] [address] [place], [address] Glucose [Mass/Vol] 157 mg/dL High 70-99 [facility] Comment on above: Performed By: #### L 100.0100, L500.2500 ####[facility] [address] [place], [address] Potassium [Moles/Vol] 4.0 mmol/L Normal 3.3-5.1 [facility] Comment on above: Performed By: #### L 100.0100, L500.2500 ####[facility] [address] [place], [address] Sodium [Moles/Vol] 136 mmol/L Normal 133-145 [facility] Comment on above: Performed By: #### L 100.0100, L500.2500 ####[facility] [address] [place], [address] Urea nitrogen [Mass/Vol] 17 mg/dL Normal 4-19 [facility] Comment on above: Performed By: #### L 100.0100, L500.2500 ####[facility] [address] [place], [address] Bedside Glucoseon 02-17-2025 FINGERSTICK GLU 246 mg/dL High 74-106 [facility] Comment on above: Result Comment: MARINA GEMENT OF PATIENT CARE PER NURSING PROTOCOL Performed By: #### L 501.080 ####[facility] [address] [place], [address] FINGERSTICK GLU 192 mg/dL High 74-106 [facility] Comment on above: Result Comment: MARINA GEMENT OF PATIENT CARE PER NURSING PROTOCOL Performed By: #### L 501.080 ####[facility] [address] [place], [address] FINGERSTICK GLU 238 mg/dL High 74-106 [facility] Comment on above: Result Comment: MARINA GEMENT OF PATIENT CARE PER NURSING PROTOCOL Performed By: #### L 501.080 ####[facility] [address] [place], [address] FINGERSTICK GLU 159 mg/dL High 74-106 [facility] Comment on above: Result Comment: MARINA GEMENT OF PATIENT CARE PER NURSING PROTOCOL Performed By: #### L 501.080 ####[facility] [address] [place], [address] CBC W/Diff, Automatedon 01-22 Absolute Lymph 2.20 X10 3/uL Normal 0.83-4.51 [facility] Comment on above: Performed By: #### L 100.0100, L500.2500 ####[facility] [address] [place], [address] Absolute Neut 6.7 X10 3/uL Normal 2.0-7.7 [facility] Comment on above: Performed By: #### L 100.0100, L500.2500 ####[facility] [address] [place], [address] Basophils/100 WBC (Bld) 0.2 % Normal 0-1 [facility] Comment on above: Performed By: #### L 100.0100, L500.2500 ####[facility] [address] [place], [address] Eosinophils/100 WBC (Bld) 0.3 % Normal 0-5 [facility] Comment on above: Performed By: #### L 100.0100, L500.2500 ####[facility] [address] [place], [address] Erythrocyte distribution width (RBC) [Ratio] 14.6 % Normal 11.6-14.6 [facility] Comment on above: Performed By: #### L 100.0100, L500.2500 ####[facility] [address] [place], [address] Hematocrit (Bld) [Volume fraction] 27.0 % Low 37-47 [facility] Comment on above: Performed By: #### L 100.0100, L500.2500 ####[facility] [address] [place], [address] Hemoglobin (Bld) [Mass/Vol] 9.9 g/dL Low 12.0-15.0 [facility] Comment on above: Performed By: #### L 100.0100, L500.2500 ####[facility] [address] [place], [address] IG% 0.600 Normal 0.0-0.9 [facility] Comment on above: Result Comment: IG% - Immature Granulocytes (promyelocytes, myelocytes andmetamyelocytes) > 1% indicates that a LEFT SHIFT is Present. Performed By: #### L 100.0100, L500.2500 ####[facility] [address] [place], [address] Lymphocytes/100 WBC (Bld) 22.0 % Normal 19-41 [facility] Comment on above: Performed By: #### L 100.0100, L500.2500 ####[facility] [address] [place], [address] MCH (RBC) [Entitic mass] 31.2 pg Normal 27.0-32.0 [facility] Comment on above: Performed By: #### L 100.0100, L500.2500 ####[facility] [address] [place], [address] MCHC (RBC) [Mass/Vol] 36.7 g/dL High 32-36 [facility] Comment on above: Performed By: #### L 100.0100, L500.2500 ####[facility] [address] [place], [address] MCV (RBC) [Entitic vol] 85.2 fL Normal 81-99 [facility] Comment on above: Performed By: #### L 100.0100, L500.2500 ####[facility] [address] [place], [address] Monocytes/100 WBC (Bld) 10.3 % High 0-10 [facility] Comment on above: Performed By: #### L 100.0100, L500.2500 ####[facility] [address] [place], [address] Neutrophils/100 WBC (Bld) 66.6 % Normal 47-70 [facility] Comment on above: Performed By: #### L 100.0100, L500.2500 ####[facility] [address] [place], [address] Nucleated RBC (Bld) [#/Vol] 0 10*3/uL Normal 0-5 [facility] Comment on above: Performed By: #### L 100.0100, L500.2500 ####[facility] [address] [place], [address] Platelet mean volume (Bld) [Entitic vol] 9.4 fL Normal 6.2-12.0 [facility] Comment on above: Performed By: #### L 100.0100, L500.2500 ####[facility] [address] [place], [address] Platelets (Bld) [#/Vol] 247 10*3/uL Normal 150-450 [facility] Comment on above: Performed By: #### L 100.0100, L500.2500 ####[facility] [address] [place], [address] RBC (Bld) [#/Vol] 3.17 10*6/uL Low 4.2-5.4 [facility] Comment on above: Performed By: #### L 100.0100, L500.2500 ####[facility] [address] [place], [address] RDW SD 44.0 fl High 35.1-43.9 [facility] Comment on above: Performed By: #### L 100.0100, L500.2500 ####[facility] [address] [place], [address] WBC (Bld) [#/Vol] 10.0 10*3/uL Normal 4.4-11.0 [facility] Comment on above: Performed By: #### L 100.0100, L500.2500 ####[facility] [address] [place], [address] Haptoglobinon 02-17-2025 HAPTOGLOBIN 91 mg/dL Normal 42-346 [facility] Comment on above: Result Comment: Perf ormed at: CB - [facility] [place] [id number] Director: Danielito العلي PhD, Phone: [phone] Performed By: #### L 5264.8402, B139.4123, F112.2634 ####[facility] [address] [place], [address] Activated partial thrombopla stin time (aPTT) in platelet poor plasma by coagulation aOrdered By: Bi Zaman on 02-16-2025 aPTT Coag (PPP) [Time] 31.5 s 24.1-36.2 [facility] Bedside Glucoseon 02-16-2025 FINGERSTICK GLU 250 mg/dL High 74-106 [facility] Comment on above: Result Comment: MARINA FERNANDEZ OF PATIENT CARE PER NURSING PROTOCOL Performed By: #### L 501.080 ####[facility] [address] [place], [address] FINGERSTICK GLU 245 mg/dL High 74-106 [facility] Comment on above: Result Comment: MARINA GEMENT OF PATIENT CARE PER NURSING PROTOCOL Performed By: #### L 501.080 ####[facility] [address] [place], [address] FINGERSTICK GLU 151 mg/dL High 74-106 [facility] Comment on above: Result Comment: MARINA GEMENT OF PATIENT CARE PER NURSING PROTOCOL Performed By: #### L 501.080 ####[facility] [address] [place], [address] Bilirubin, totalOrdered By: Lakeshia Mas on 02-16-2025 Bilirubin [Mass/Vol] 1.96 mg/dL High 0.00-1.30 [facility] CBC W/Diff, Automatedon 01-22 Absolute Lymph 2.62 X10 3/uL Normal 0.83-4.51 [facility] Comment on above: Performed By: #### L 300.3900, L300.4310, L100.0100, L501.9520, L501.9985, L500.4050 ####[facility] [address] [place], [address] Absolute Neut 5.8 X10 3/uL Normal 2.0-7.7 [facility] Comment on above: Performed By: #### L 300.3900, L300.4310, L100.0100, L501.9520, L501.9985, L500.4050 ####[facility] [address] [place], [address] Basophils/100 WBC (Bld) 0.5 % Normal 0-1 [facility] Comment on above: Performed By: #### L 300.3900, L300.4310, L100.0100, L501.9520, L501.9985, L500.4050 ####[facility] [address] [place], [address] Eosinophils/100 WBC (Bld) 1.9 % Normal 0-5 [facility] Comment on above: Performed By: #### L 300.3900, L300.4310, L100.0100, L501.9520, L501.9985, L500.4050 ####[facility] [address] [place], [address] Erythrocyte distribution width (RBC) [Ratio] 14.4 % Normal 11.6-14.6 [facility] Comment on above: Performed By: #### L 300.3900, L300.4310, L100.0100, L501.9520, L501.9985, L500.4050 ####[facility] [address] [place], [address] Hematocrit (Bld) [Volume fraction] 24.1 % Low 37-47 [facility] Comment on above: Performed By: #### L 300.3900, L300.4310, L100.0100, L501.9520, L501.9985, L500.4050 ####[facility] [address] [place], [address] Hemoglobin (Bld) [Mass/Vol] 8.7 g/dL Low 12.0-15.0 [facility] Comment on above: Performed By: #### L 300.3900, L300.4310, L100.0100, L501.9520, L501.9985, L500.4050 ####[facility] [address] [place], [address] IG% 0.400 Normal 0.0-0.9 [facility] Comment on above: Result Comment: IG% - Immature Granulocytes (promyelocytes, myelocytes andmetamyelocytes) > 1% indicates that a LEFT SHIFT is Present. Performed By: #### L 300.3900, L300.4310, L100.0100, L501.9520, L501.9985, L500.4050 ####[facility] [address] [place], [address] Lymphocytes/100 WBC (Bld) 27.3 % Normal 19-41 [facility] Comment on above: Performed By: #### L 300.3900, L300.4310, L100.0100, L501.9520, L501.9985, L500.4050 ####[facility] [address] [place], [address] MCH (RBC) [Entitic mass] 32.1 pg High 27.0-32.0 [facility] Comment on above: Performed By: #### L 300.3900, L300.4310, L100.0100, L501.9520, L501.9985, L500.4050 ####[facility] [address] [place], [address] MCHC (RBC) [Mass/Vol] 36.1 g/dL High 32-36 [facility] Comment on above: Performed By: #### L 300.3900, L300.4310, L100.0100, L501.9520, L501.9985, L500.4050 ####[facility] [address] [place], [address] MCV (RBC) [Entitic vol] 88.9 fL Normal 81-99 [facility] Comment on above: Performed By: #### L 300.3900, L300.4310, L100.0100, L501.9520, L501.9985, L500.4050 ####[facility] [address] [place], [address] Monocytes/100 WBC (Bld) 9.3 % Normal 0-10 [facility] Comment on above: Performed By: #### L 300.3900, L300.4310, L100.0100, L501.9520, L501.9985, L500.4050 ####[facility] [address] [place], [address] Neutrophils/100 WBC (Bld) 60.6 % Normal 47-70 [facility] Comment on above: Performed By: #### L 300.3900, L300.4310, L100.0100, L501.9520, L501.9985, L500.4050 ####[facility] [address] [place], [address] Nucleated RBC (Bld) [#/Vol] 0 10*3/uL Normal 0-5 [facility] Comment on above: Performed By: #### L 300.3900, L300.4310, L100.0100, L501.9520, L501.9985, L500.4050 ####[facility] [address] [place], [address] Platelet mean volume (Bld) [Entitic vol] 9.5 fL Normal 6.2-12.0 [facility] Comment on above: Performed By: #### L 300.3900, L300.4310, L100.0100, L501.9520, L501.9985, L500.4050 ####[facility] [address] [place], [address] Platelets (Bld) [#/Vol] 297 10*3/uL Normal 150-450 [facility] Comment on above: Performed By: #### L 300.3900, L300.4310, L100.0100, L501.9520, L501.9985, L500.4050 ####[facility] [address] [place], [address] RBC (Bld) [#/Vol] 2.71 10*6/uL Low 4.2-5.4 [facility] Comment on above: Performed By: #### L 300.3900, L300.4310, L100.0100, L501.9520, L501.9985, L500.4050 ####[facility] [address] [place], [address] RDW SD 43.8 fl Normal 35.1-43.9 [facility] Comment on above: Performed By: #### L 300.3900, L300.4310, L100.0100, L501.9520, L501.9985, L500.4050 ####[facility] [facility] [address] [place], [address] WBC (Bld) [#/Vol] 9.6 10*3/uL Normal 4.4-11.0 [facility] Comment on above: Performed By: #### L 300.3900, L300.4310, L100.0100, L501.9520, L501.9985, L500.4050 ####[facility] [address] [place], [address] Comprehensive Metabolic Prof [facility] 02-16-2025 Albumin [Mass/Vol] 3.0 g/dL Low 3.4-4.8 [facility] Comment on above: Performed By: #### L 300.3900, L300.4310, L100.0100, L501.9520, L501.9985, L500.4050 ####[facility] [address] [place], [address] Albumin/Globulin [Mass ratio] 0.8 {ratio} Low 0.9-2.4 [facility] Comment on above: Performed By: #### L 300.3900, L300.4310, L100.0100, L501.9520, L501.9985, L500.4050 ####[facility] [address] [place], [address] ALK PHOS 89 U/L Normal 35-104 [facility] Comment on above: Performed By: #### L 300.3900, L300.4310, L100.0100, L501.9520, L501.9985, L500.4050 ####[facility] [address] [place], [address] ALT [Catalytic activity/Vol] U/L Normal <=34 [facility] Comment on above: Performed By: #### L 300.3900, L300.4310, L100.0100, L501.9520, L501.9985, L500.4050 ####[facility] [address] [place], [address] AST [Catalytic activity/Vol] 34 U/L High <=31 [facility] Comment on above: Performed By: #### L 300.3900, L300.4310, L100.0100, L501.9520, L501.9985, L500.4050 ####[facility] [address] [place], [address] Bilirubin [Mass/Vol] 1.96 mg/dL High 0.00-1.30 [facility] Comment on above: Performed By: #### L 300.3900, L300.4310, L100.0100, L501.9520, L501.9985, L500.4050 ####[facility] [address] [place], [address] BUN/CRE 28.4 RATIO High 10-20 [facility] Comment on above: Performed By: #### L 300.3900, L300.4310, L100.0100, L501.9520, L501.9985, L500.4050 ####[facility] [address] [place], [address] Calcium [Mass/Vol] 8.9 mg/dL Normal 7.6-11.0 [facility] Comment on above: Performed By: #### L 300.3900, L300.4310, L100.0100, L501.9520, L501.9985, L500.4050 ####[facility] [address] [place], [address] Chloride [Moles/Vol] 102 mmol/L Normal 98-108 [facility] Comment on above: Performed By: #### L 300.3900, L300.4310, L100.0100, L501.9520, L501.9985, L500.4050 ####[facility] [address] [place], [address] CO2 [Moles/Vol] 19.9 mmol/L Low 21.0-32.0 [facility] Comment on above: Performed By: #### L 300.3900, L300.4310, L100.0100, L501.9520, L501.9985, L500.4050 ####[facility] [address] [place], [address] Creatinine [Mass/Vol] 0.77 mg/dL Normal 0.70-1.20 [facility] Comment on above: Performed By: #### L 300.3900, L300.4310, L100.0100, L501.9520, L501.9985, L500.4050 ####[facility] [address] [place], [address] ECRCL 44.44 ml/min Low 50-250 [facility] Comment on above: Performed By: #### L 300.3900, L300.4310, L100.0100, L501.9520, L501.9985, L500.4050 ####[facility] [address] [place], [address] GAP 12 Normal 5-15 [facility] Comment on above: Performed By: #### L 300.3900, L300.4310, L100.0100, L501.9520, L501.9985, L500.4050 ####[facility] [address] [place], [address] GFR/1.73 sq M.predicted among non-blacks MDRD (S/P/Bld) [Vol rate/Area] 80 mL/min/{1.73_m2} Normal >60 [facility] Comment on above: Result Comment: mL/m in/1.73m2 CKD-EPI Creatinine Equation (2020) Performed By: #### L 300.3900, L300.4310, L100.0100, L501.9520, L501.9985, L500.4050 ####[facility] [address] [place], [address] Globulin (S) [Mass/Vol] 3.6 g/dL Normal 2.2-4.2 [facility] Comment on above: Performed By: #### L 300.3900, L300.4310, L100.0100, L501.9520, L501.9985, L500.4050 ####[facility] [address] [place], [address] Glucose [Mass/Vol] 155 mg/dL High 70-99 [facility] Comment on above: Performed By: #### L 300.3900, L300.4310, L100.0100, L501.9520, L501.9985, L500.4050 ####[facility] [address] [place], [address] Potassium [Moles/Vol] 3.6 mmol/L Normal 3.3-5.1 [facility] Comment on above: Performed By: #### L 300.3900, L300.4310, L100.0100, L501.9520, L501.9985, L500.4050 ####[facility] [address] [place], [address] Sodium [Moles/Vol] 133 mmol/L Normal 133-145 [facility] Comment on above: Performed By: #### L 300.3900, L300.4310, L100.0100, L501.9520, L501.9985, L500.4050 ####[facility] [address] [place], [address] T PROT 6.6 g/dL Normal 5.9-8.4 [facility] Comment on above: Performed By: #### L 300.3900, L300.4310, L100.0100, L501.9520, L501.9985, L500.4050 ####[facility] [address] [place], [address] Urea nitrogen [Mass/Vol] 22 mg/dL High 4-19 [facility] Comment on above: Performed By: #### L 300.3900, L300.4310, L100.0100, L501.9520, L501.9985, L500.4050 ####[facility] [address] [place], [address] Consultation - Orthopedicson 02-16-2025 Consultation - Orthopedics Normal [facility] Hemoglobin A1con 02-16-2025 HbA1c (Bld) [Mass fraction] 7.3 % High <=5.6 [facility] Comment on above: Result Comment: Norm al < 5.7 % Prediabetic 5.7 - 6.4 % Diabetic >or= 6.5 % Please note range changes. Performed By: #### L 300.3900, L300.4310, L100.0100, L501.9520, L501.9985, L500.4050 ####[facility] [address] [place], [address] Hemoglobin A1c percentageOrd ered By: Lakeshia Mas on 02-16-2025 HbA1c (Bld) [Mass fraction] 7.3 % High <5.7 [facility] Comment on above: Normal < 5.7 % Predi abetic 5.7 - 6.4 % Diabetic >or= 6.5 % Please note range changes. Hip Min 2 Views (Portable)on 02-16-2025 Hip Min 2 Views (Portable) Normal [facility] International normalized rat io (INR) calculationOrdered By: Lakeshia Mas on 02-16-2025 INR Coag (Bld) [Relative time] 1.1 {INR} [facility] Laboratory - Chemistry and C hemistry - challengeOrdered By: Lakeshia Mas on 02-16-2025 AST [Catalytic activity/Vol] 34 U/L High <32 [facility] MR/POSTOP.ANEon 02-16-2025 MR/POSTOP.ANE Normal [facility] O.R. Fluoro for C-Panfilo 01-22 O.R. Fluoro for C-Arm Normal [facility] Operative Reporton Operative Report Normal [facility] Partial Thromboplast Timeon 02-16-2025 aPTT Coag (Bld) [Time] 31.5 s Normal 24.1-36.2 [facility] Comment on above: Performed By: #### L 300.3900, L300.4310, L100.0100, L501.9520, L501.9985, L500.4050 ####[facility] [address] [place], [address] Prothrombin Time w/INRon INR Coag (PPP) [Relative time] 1.1 {INR} Normal [facility] Comment on above: Performed By: #### L 300.3900, L300.4310, L100.0100, L501.9520, L501.9985, L500.4050 ####[facility] [address] [place], [address] PT Coag (PPP) [Time] 14.6 s Normal 11.7-14.9 [facility] Comment on above: Performed By: #### L 300.3900, L300.4310, L100.0100, L501.9520, L501.9985, L500.4050 ####[facility] [address] [place], [address] Prothrombin timeOrdered By: Lakeshia Mas on 02-16-2025 PT Coag (PPP) [Time] 14.6 s 11.7-14.9 [facility] Serum globulin measurementOr dered By: Lakeshia Mas on 02-16-2025 Globulin (S) [Mass/Vol] 3.6 g/dL 2.2-4.2 [facility] Serum or plasma alanine cornejo otransferase (ALT) measurementOrdered By: Lakeshia Mas on 02-16-2025 ALT [Catalytic activity/Vol] U/L <35 [facility] Serum or plasma albumin sabino urement (mass/volume)Ordered By: Lakeshia Mas on 02-16-2025 Albumin [Mass/Vol] 3.0 g/dL Low 3.4-4.8 [facility] Serum or plasma albumin/glob ulin mass ratioOrdered By: Lakeshia Mas on 02-16-2025 Albumin/Globulin [Mass ratio] 0.8 {ratio} Low 0.9-2.4 [facility] Serum or plasma alkaline shaista sphatase measurementOrdered By: Lakeshia Mas on 02-16-2025 ALP [Catalytic activity/Vol] 89 U/L 35-104 [facility] T4 Free Directon 02-16-2025 T4 FREE DIRECT 1.10 ng/dL Normal 0.76-1.46 [facility] Comment on above: Performed By: #### L 506.0400, L506.1001 ####[facility] [address] [place], [place], [id number] T4 freeOrdered By: Baldev reza on 02-16-2025 Free T4 [Mass/Vol] 1.10 ng/dL 0.76-1.46 [facility] TSH DL <= 0.005 mIU/L QnOrde red By: Lakeshia Mas on 02-16-2025 TSH Qn 7.490 uIU/mL High 0.300-4.200 [facility] Thyroid Stim Hormone (TSH)on 02-16-2025 TSH 7.490 uIU/mL High 0.300-4.200 [facility] Comment on above: Performed By: #### L 300.3900, L300.4310, L100.0100, L501.9520, L501.9985, L500.4050 ####[facility] [address] [place], [place], [id number] Total proteinOrdered By: Stephan Mas on 02-16-2025 Protein [Mass/Vol] 6.6 g/dL 5.9-8.4 [facility] Type AND Screenon 02-16-2025 ABO and Rh group Nom (Bld) Blood group O Rh(D) positive Normal [facility] Comment on above: Order Comment: S Performed By: #### B TS ####[facility] [address] [place], [place], [id number] Vitamin D,25 Hydroxyon 02-16 Vitamin D 25-OH 10.7 ng/mL Low 30-100 [facility] Comment on above: Result Comment: Jojo min D StatusDeficiency: <20 ng/mL (50nmol/L)Insufficiency: 20-30 ng/mL (50-75 nmol/L)Sufficiency: 30-100 ng/mL (75-250 nmol/L)Toxicity: >100 ng/mL (>250 nmol/L) Performed By: #### L 506.0400, L506.1001 ####[facility] [address] [place], [place], [address] Absolute lymphocyte countOrd ered By: Abdirashid Cano on 02-15-2025 Lymphocytes Auto (Unsp spec) [#/Vol] 3.52 10*3/uL 0.83-4.51 [facility] Absolute neutrophil countOrd ered By: Abdirashid Cano on 02-15-2025 Neutrophils (Bld) [#/Vol] 4.6 10*3/uL 2.0-7.7 [facility] Anion gap in Serum or Plasma Ordered By: Abdirashid Cano on 02-15-2025 Anion gap [Moles/Vol] 15 mmol/L 5-15 [facility] Automated lymphocyte count a s percentage of total leukocytesOrdered By: Abdirashid Cano on 02-15-2025 Lymphocytes/100 WBC Auto (Unsp spec) 38.6 % 19-41 [facility] BRCon 02-15-2025 RC Normal [facility] Comment on above: Result Comment: [id number] OP RC TRANSFUSED 02/16/25 [id number] OP RC TRANSFUSED 02/16/25 1642 Performed By: #### B RC ####[facility] [address] [place], [place], [id number] BUN/creatinine ratioOrdered By: Abdirashid Cano on 02-15-2025 Urea nitrogen/Creatinine [Mass ratio] 25.3 mg/mg High 10-20 [facility] Basophil percentageOrdered B y: Abdirashid Cano on 02-15-2025 Basophils/100 WBC (Bld) 0.4 % 0-1 [facility] Bedside Glucoseon 02-15-2025 FINGERSTICK GLU 148 mg/dL High 74-106 [facility] Comment on above: Result Comment: MARINA LUDAENT OF PATIENT CARE PER NURSING PROTOCOL Performed By: #### L 501.080 ####[facility] [address] [place], [place], [address] Bilirubin Test strip Ql (U)O rdered By: Abdirashid Cano on 02-15-2025 Bilirubin Ql (U) Negative Negative [facility] Bilirubin directOrdered By: Lakeshia Mas on 02-15-2025 Bilirubin.direct [Mass/Vol] 1.15 mg/dL High 0.00-0.30 [facility] Bilirubin, Directon 02-16-20 25 Bilirubin.direct [Mass/Vol] 1.15 mg/dL High 0.00-0.30 [facility] Comment on above: Performed By: #### L 3100.1850, L504.2610, L501.4700 ####[facility] [address] [place], [place], [address] Bilirubin, totalOrdered By: Abdirashid Cano on 02-15-2025 Bilirubin [Mass/Vol] 2.68 mg/dL High 0.00-1.30 [facility] CBC W/Diff, Automatedon 01-22 Absolute Lymph 3.52 X10 3/uL Normal 0.83-4.51 [facility] Comment on above: Performed By: #### L 100.0100, L500.4050 ####[facility] [address] [place], [address] Absolute Neut 4.6 X10 3/uL Normal 2.0-7.7 [facility] Comment on above: Performed By: #### L 100.0100, L500.4050 ####[facility] [address] [place], [address] Basophils/100 WBC (Bld) 0.4 % Normal 0-1 [facility] Comment on above: Performed By: #### L 100.0100, L500.4050 ####[facility] [address] [place], [address] Eosinophils/100 WBC (Bld) 1.8 % Normal 0-5 [facility] Comment on above: Performed By: #### L 100.0100, L500.4050 ####[facility] [address] [place], [address] Erythrocyte distribution width (RBC) [Ratio] 14.1 % Normal 11.6-14.6 [facility] Comment on above: Performed By: #### L 100.0100, L500.4050 ####[facility] [address] [place], [address] Hematocrit (Bld) [Volume fraction] 24.0 % Low 37-47 [facility] Comment on above: Performed By: #### L 100.0100, L500.4050 ####[facility] [address] [place], [address] Hemoglobin (Bld) [Mass/Vol] 8.7 g/dL Low 12.0-15.0 [facility] Comment on above: Performed By: #### L 100.0100, L500.4050 ####[facility] [address] [place], [address] IG% 0.300 Normal 0.0-0.9 [facility] Comment on above: Result Comment: IG% - Immature Granulocytes (promyelocytes, myelocytes andmetamyelocytes) > 1% indicates that a LEFT SHIFT is Present. Performed By: #### L 100.0100, L500.4050 ####[facility] [address] [place], [address] Lymphocytes/100 WBC (Bld) 38.6 % Normal 19-41 [facility] Comment on above: Performed By: #### L 100.0100, L500.4050 ####[facility] [address] [place], [address] MCH (RBC) [Entitic mass] 32.1 pg High 27.0-32.0 [facility] Comment on above: Performed By: #### L 100.0100, L500.4050 ####[facility] [address] [place], [address] MCHC (RBC) [Mass/Vol] 36.3 g/dL High 32-36 [facility] Comment on above: Performed By: #### L 100.0100, L500.4050 ####[facility] [address] [place], [address] MCV (RBC) [Entitic vol] 88.6 fL Normal 81-99 [facility] Comment on above: Performed By: #### L 100.0100, L500.4050 ####[facility] [address] [place], [address] Monocytes/100 WBC (Bld) 8.7 % Normal 0-10 [facility] Comment on above: Performed By: #### L 100.0100, L500.4050 ####[facility] [address] [place], [address] Neutrophils/100 WBC (Bld) 50.2 % Normal 47-70 [facility] Comment on above: Performed By: #### L 100.0100, L500.4050 ####[facility] [address] [place], [address] Nucleated RBC (Bld) [#/Vol] 0 10*3/uL Normal 0-5 [facility] Comment on above: Performed By: #### L 100.0100, L500.4050 ####[facility] [address] [place], [address] Platelet mean volume (Bld) [Entitic vol] 9.6 fL Normal 6.2-12.0 [facility] Comment on above: Performed By: #### L 100.0100, L500.4050 ####[facility] [address] [place], [address] Platelets (Bld) [#/Vol] 258 10*3/uL Normal 150-450 [facility] Comment on above: Performed By: #### L 100.0100, L500.4050 ####[facility] [address] [place], [address] RBC (Bld) [#/Vol] 2.71 10*6/uL Low 4.2-5.4 [facility] Comment on above: Performed By: #### L 100.0100, L500.4050 ####[facility] [address] [place], [address] RDW SD 42.4 fl Normal 35.1-43.9 [facility] Comment on above: Performed By: #### L 100.0100, L500.4050 ####[facility] [address] [place], [address] WBC (Bld) [#/Vol] 9.1 10*3/uL Normal 4.4-11.0 [facility] Comment on above: Performed By: #### L 100.0100, L500.4050 ####[facility] [address] [place], [address] Carbon dioxide, total [Moles /volume] in Central venous bloodOrdered By: Abdirashid Cano on 02-15-2025 CO2 [Moles/Vol] 18.1 mmol/L Low 21.0-32.0 [facility] Chloride assayOrdered By: Anurag Cano on 02-15-2025 Chloride [Moles/Vol] 100 mmol/L 98-108 [facility] Comprehensive Metabolic Prof ilon 02-15-2025 Albumin [Mass/Vol] 3.0 g/dL Low 3.4-4.8 [facility] Comment on above: Performed By: #### L 100.0100, L500.4050 ####[facility] [address] [place], [address] Albumin/Globulin [Mass ratio] 0.8 {ratio} Low 0.9-2.4 [facility] Comment on above: Performed By: #### L 100.0100, L500.4050 ####[facility] [address] [place], [address] ALK PHOS 77 U/L Normal 35-104 [facility] Comment on above: Performed By: #### L 100.0100, L500.4050 ####[facility] [address] [place], [address] ALT [Catalytic activity/Vol] U/L Normal <=34 [facility] Comment on above: Performed By: #### L 100.0100, L500.4050 ####[facility] [address] [place], [address] AST [Catalytic activity/Vol] 33 U/L High <=31 [facility] Comment on above: Performed By: #### L 100.0100, L500.4050 ####[facility] [address] [place], [address] Bilirubin [Mass/Vol] 2.68 mg/dL High 0.00-1.30 [facility] Comment on above: Performed By: #### L 100.0100, L500.4050 ####[facility] [address] [place], [address] BUN/CRE 25.3 RATIO High 10-20 [facility] Comment on above: Performed By: #### L 100.0100, L500.4050 ####[facility] [address] [place], [address] Calcium [Mass/Vol] 8.7 mg/dL Normal 7.6-11.0 [facility] Comment on above: Performed By: #### L 100.0100, L500.4050 ####[facility] [address] [place], [address] Chloride [Moles/Vol] 100 mmol/L Normal 98-108 [facility] Comment on above: Performed By: #### L 100.0100, L500.4050 ####[facility] [address] [place], [address] CO2 [Moles/Vol] 18.1 mmol/L Low 21.0-32.0 [facility] Comment on above: Performed By: #### L 100.0100, L500.4050 ####[facility] [address] [place], [address] Creatinine [Mass/Vol] 0.76 mg/dL Normal 0.70-1.20 [facility] Comment on above: Performed By: #### L 100.0100, L500.4050 ####[facility] [address] [place], [address] ECRCL 50.65 ml/min Normal 50-250 [facility] Comment on above: Performed By: #### L 100.0100, L500.4050 ####[facility] [address] [place], [address] GAP 15 Normal 5-15 [facility] Comment on above: Performed By: #### L 100.0100, L500.4050 ####[facility] [address] [place], [address] GFR/1.73 sq M.predicted among non-blacks MDRD (S/P/Bld) [Vol rate/Area] 80 mL/min/{1.73_m2} Normal >60 [facility] Comment on above: Result Comment: mL/m in/1.73m2 CKD-EPI Creatinine Equation (2020) Performed By: #### L 100.0100, L500.4050 ####[facility] [address] [place], [address] Globulin (S) [Mass/Vol] 3.7 g/dL Normal 2.2-4.2 [facility] Comment on above: Performed By: #### L 100.0100, L500.4050 ####[facility] [address] [place], [address] Glucose [Mass/Vol] 155 mg/dL High 70-99 [facility] Comment on above: Performed By: #### L 100.0100, L500.4050 ####[facility] [address] [place], [address] Potassium [Moles/Vol] 3.7 mmol/L Normal 3.3-5.1 [facility] Comment on above: Performed By: #### L 100.0100, L500.4050 ####[facility] [address] [place], [address] Sodium [Moles/Vol] 133 mmol/L Normal 133-145 [facility] Comment on above: Performed By: #### L 100.0100, L500.4050 ####[facility] [facility] [address] [place], [address] T PROT 6.8 g/dL Normal 5.9-8.4 [facility] Comment on above: Performed By: #### L 100.0100, L500.4050 ####[facility] [address] [place], [address] Urea nitrogen [Mass/Vol] 19 mg/dL Normal 4-19 [facility] Comment on above: Performed By: #### L 100.0100, L500.4050 ####[facility] [address] [place], [place], [id number] Emergency Department Summary on 02-15-2025 Emergency Department Summary Normal [facility] Eosinophil percentageOrdered By: Abdirashid Cano on 02-15-2025 Eosinophils/100 WBC (Bld) 1.8 % 0-5 [facility] Erythrocyte distribution wid th ratioOrdered By: Abdirashid Cano on 02-15-2025 Erythrocyte distribution width (RBC) [Ratio] 14.1 % 11.6-14.6 [facility] Erythrocyte distribution wid th standard deviationOrdered By: Abdirashid Cano on 02-15-2025 Erythrocyte distribution width (RBC) [Ratio] 42.4 fl 35.1-43.9 [facility] Femur Min 2 Viewson 02-16-20 25 Femur Min 2 Views Normal [facility] Ferritinon 02-15-2025 Ferritin [Mass/Vol] 150 ng/mL Normal 22-378 [facility] Comment on above: Performed By: #### L 503.6550, L100.9950, L503.6030 ####[facility] [address] [place], [place], [address] Glomerular filtration rate ( GFR) estimation/1.73 sq m using serum, plasma, or whole bOrdered By: Abdirashid Cano on 02-15-2025 GFR/1.73 sq M.predicted among non-blacks MDRD (S/P/Bld) [Vol rate/Area] 80 mL/min/{1.73_m2} >60 [facility] Comment on above: mL/min/1.73m2 CKD-EP I Creatinine Equation (2020) H AND P Exam - Hospitaliston 02-15-2025 H&P Exam - Hospitalist Normal [facility] HIP, UNI W/ Pelvis 2-3 Views on 02-15-2025 HIP, UNI W/ Pelvis 2-3 Views Normal [facility] Hematocrit Auto (Bld) [Volum e fraction]Ordered By: Abdirashid Cano on 02-15-2025 Hematocrit (Bld) [Volume fraction] 24.0 % Low 37-47 [facility] Hemoglobin measurementOrdere d By: Abdirashid Cano on 02-15-2025 Hemoglobin (Bld) [Mass/Vol] 8.7 g/dL Low 12.0-15.0 [facility] Immature granulocytes/100 WB C Auto (Bld)Ordered By: Abdirashid Cano on 02-15-2025 Immature granulocytes/100 WBC (Bld) 0.300 % 0.0-0.9 [facility] Comment on above: IG% - Immature Granu locytes (promyelocytes, myelocytes and metamyelocytes) > 1% indicates that a LEFT SHIFT is Present. Iron measurement (mass/mass) Ordered By: Lakeshia Mas on 02-15-2025 Iron (Unsp spec) [Mass/Mass] 62 ug/dL 50-170 [facility] Iron+Iron Binding Capacityon 02-15-2025 TIBC 197 ug/dL Low 250-450 [facility] Comment on above: Performed By: #### L 503.6550, L100.9950, L503.6030 ####[facility] [address] [place], [address] Ketones Test strip Ql (U)Ord ered By: Abdirashid Cano on 02-15-2025 Ketones Ql (U) 15 mg/dl High Negative [facility] LDHon 02-15-2025 LDH 247 U/L High 84-246 [facility] Comment on above: Performed By: #### L 3100.1850, L504.2610, L501.4700 ####[facility] [address] [place], [address] Laboratory - Chemistry and C hemistry - challengeOrdered By: Abdirashid Cano on 02-15-2025 AST [Catalytic activity/Vol] 33 U/L High <32 [facility] Lactate dehydrogenase (LDH) measurementOrdered By: Lakeshia Mas on 02-15-2025 LDH [Catalytic activity/Vol] 247 U/L High 84-246 [facility] MCV (mean corpuscular volume ) determinationOrdered By: Abdirashid Cano on 02-15-2025 MCV (RBC) [Entitic vol] 88.6 fL 81-99 [facility] Mean corpuscular hemoglobin (MCH) determinationOrdered By: Abdirashid Cano on 02-15-2025 MCH (RBC) [Entitic mass] 32.1 pg High 27.0-32.0 [facility] Mean corpuscular hemoglobin concentration (MCHC) determinationOrdered By: Abdirashid Cano on 02-15-2025 MCHC (RBC) [Mass/Vol] 36.3 g/dL High 32-36 [facility] Mean platelet volume determi nationOrdered By: Abdirashid Cano on 02-15-2025 Platelet mean volume (Bld) [Entitic vol] 9.6 fL 6.2-12.0 [facility] Microscopic analysis of urin e for red blood cells (RBC)Ordered By: Abdirashid Cano on 02-15-2025 Microscopic analysis of urine for red blood cells (RBC) 0-5 SEEN /hpf 0-5 [facility] Monocyte percentageOrdered B y: Abdirashid Cano on 02-15-2025 Monocytes/100 WBC (Bld) 8.7 % 0-10 [facility] Mucus LM Ql (Urine sed)Order ed By: Abdirashid Cano on 02-15-2025 Mucus Ql (Urine sed) 0 SEEN /hpf [facility] Neutrophil percentageOrdered By: Abdirashid Cano on 02-15-2025 Neutrophils/100 WBC (Bld) 50.2 % 47-70 [facility] Nitrite Test strip Ql (U)Ord ered By: Abdirashid Cano on 02-15-2025 Nitrite Ql (U) Negative Negative [facility] No Panel InformationOrdered By: Lakeshia Mas on 02-15-2025 Unsaturated Iron Binding Capacity 135 ug/dL Low 228-428 [facility] Nucleated red blood cell per centageOrdered By: Abdirashid Cano on 02-15-2025 Nucleated RBC/100 WBC (Bld) [Ratio] 0 % 0-5 [facility] Platelet countOrdered By: Anurag Cano on 02-15-2025 Platelets (Bld) [#/Vol] 258 10*3/uL 150-450 [facility] Potassium measurement (mass/ volume)Ordered By: Abdirashid Cano on 02-15-2025 Potassium (Unsp spec) [Mass/Vol] 3.7 mmol/L 3.3-5.1 [facility] Protein Test strip Ql (U)Ord ered By: Abdirashid Cano on 02-15-2025 Protein Ql (U) 30 mg/dl High Negative [facility] RBC Auto (Bld) [#/Vol]Ordere d By: Abdirashid Cano on 02-15-2025 RBC (Bld) [#/Vol] 2.71 10*6/uL Low 4.2-5.4 [facility] Retic Panelon 02-15-2025 IM RET FRACTION 12.50 Normal 3.00-15.90 [facility] Comment on above: Performed By: #### L 503.6550, L100.9950, L503.6030 ####[facility] [address] [place], [address] RET-HE 35.7 pg High 30-35 [facility] Comment on above: Performed By: #### L 503.6550, L100.9950, L503.6030 ####[facility] [address] [place], [address] Retic Count 4.81 High 0.5-1.5 [facility] Comment on above: Performed By: #### L 503.6550, L100.9950, L503.6030 ####[facility] [address] [place], [address] Reticulocyte hemoglobin equi valent (RET-He) measurementOrdered By: Lakeshia Mas on 02-15-2025 Hemoglobin (Reticulocytes) [Entitic mass] 35.7 pg High 30-35 [facility] Reticulocytes Auto (Bld) [#/ Vol]Ordered By: Lakeshia Mas on 02-15-2025 Reticulocytes/100 RBC (Bld) 4.81 % High 0.5-1.5 [facility] Serum creatinine measurement (mass/volume)Ordered By: Abdirashid Cano on 02-15-2025 Creatinine [Mass/Vol] 0.76 mg/dL 0.70-1.20 [facility] Serum globulin measurementOr dered By: Abdirashid Cano on 02-15-2025 Globulin (S) [Mass/Vol] 3.7 g/dL 2.2-4.2 [facility] Serum glucose measurement (m ass/volume)Ordered By: Abdirashid Cano on 02-15-2025 Glucose [Mass/Vol] 155 mg/dL High 70-99 [facility] Serum or plasma alanine cornejo otransferase (ALT) measurementOrdered By: Abdirashid Cano on 02-15-2025 ALT [Catalytic activity/Vol] U/L <35 [facility] Serum or plasma albumin sabino urement (mass/volume)Ordered By: Abdirashid Cano on 02-15-2025 Albumin [Mass/Vol] 3.0 g/dL Low 3.4-4.8 [facility] Serum or plasma albumin/glob ulin mass ratioOrdered By: Abdirashid Cano on 02-15-2025 Albumin/Globulin [Mass ratio] 0.8 {ratio} Low 0.9-2.4 [facility] Serum or plasma alkaline shaista sphatase measurementOrdered By: Abdirashid Cano on 02-15-2025 ALP [Catalytic activity/Vol] 77 U/L 35-104 [facility] Serum or plasma calcium sabino urement (mass/volume)Ordered By: Abdirashid Cano on 02-15-2025 Calcium [Mass/Vol] 8.7 mg/dL 7.6-11.0 [facility] Serum or plasma ferritin uzma surement (mass/volume)Ordered By: Lakeshia Mas on 02-15-2025 Ferritin [Mass/Vol] 150 ng/mL 22-378 [facility] Serum or plasma iron saturat ion measurement (mass fraction)Ordered By: Lakeshia Mas on 02-15-2025 Iron saturation [Mass fraction] 32.0 % 13-59 [facility] Comment on above: Previous reported re sult: 32.0 %Edited by: CHACHA on 02/15/25:213 Serum or plasma urea nitroge n measurement (mass/volume)Ordered By: Abdirashid Cano on 02-15-2025 Urea nitrogen [Mass/Vol] 19 mg/dL 4-19 [facility] Sodium levelOrdered By: Judith Cano on 02-15-2025 Sodium [Moles/Vol] 133 mmol/L 133-145 [facility] Squamous epithelial cells de tection in urine sediment by light microscopyOrdered By: Abdirashid Cano on 02-15-2025 Epithelial cells.squamous LM Ql (Urine sed) 5-10 SEEN /hpf 5-10 [facility] Total proteinOrdered By: Ronak Cano on 02-15-2025 Protein [Mass/Vol] 6.8 g/dL 5.9-8.4 [facility] Urinalysis, Completeon 02-15 EPI,SQUAMOUS 5-10 SEEN Normal 5-10 [facility] Comment on above: Order Comment: MELVIN TER SPECIMEN Performed By: #### L 400.0001 ####[facility] [address] [place], [address] RBC 0-5 SEEN Normal 0-5 [facility] Comment on above: Order Comment: MELVIN TER SPECIMEN Performed By: #### L 400.0001 ####[facility] [address] [place], [address] WBC 0-5 SEEN Normal 0-5 [facility] Comment on above: Order Comment: MELVIN TER SPECIMEN Performed By: #### L 400.0001 ####[facility] [address] [place], [address] BACTERIA 0 SEEN Normal None Seen [facility] Comment on above: Order Comment: MELVIN TER SPECIMEN Performed By: #### L 400.0001 ####[facility] [address] [place], [place], [address] Mucus Ql (Urine sed) 0 SEEN Normal [facility] Comment on above: Order Comment: [facility] SPECIMEN Performed By: #### L 400.0001 ####[facility] [address] [place], [place], [id number] Urine clarityOrdered By: Ronak Cano on 02-15-2025 Clarity (U) Clear Clear [facility] Urine color determinationOrd ered By: Abdirashid Cano on 02-15-2025 Color (U) Straw Yellow [facility] Urine glucose detectionOrder ed By: Abdirashid Cano on 02-15-2025 Glucose Ql (U) Normal mg/dl Normal [facility] Urine leukocyte esterase det ection by dipstickOrdered By: Abdirashid Cano on 02-15-2025 Leukocyte esterase Test strip Ql (U) Negative Negative [facility] Urine pHOrdered By: Abdirashid walden on 02-15-2025 pH (U) 6.5 [pH] 5.0 - 8.0 [facility] Urine sediment bacteria coun t by microscopy (number/high power field)Ordered By: Abdirashid Cano on 02-15-2025 Bacteria LM.HPF (Urine sed) [#/Area] 0 /[HPF] None Seen [facility] Urine specific gravity measu rementOrdered By: Abdirashid Cano on 02-15-2025 Specific gravity (U) [Rel density] 1.010 1.002-1.030 [facility] Urine urobilinogen measureme ntOrdered By: Abdirashid Cano on 02-15-2025 Urobilinogen Ql (U) 8 mg/dl High Normal [facility] White blood cell (WBC) count Ordered By: Abdirashid Cano on 02-15-2025 WBC (Bld) [#/Vol] 9.1 10*3/uL 4.4-11.0 [facility] White blood cell countOrdere d By: Abdirashid Cano on 02-15-2025 White blood cell count 0-5 SEEN /hpf 0-5 [facility] CBC W/Diff, Automatedon 05-0 Absolute Neut Normal 2.0-7.7 [facility] Comment on above: Result Comment: WAS UTO, WILL COME BACK ANOTHER DAY Performed By: #### L 100.0100, L500.4050, L500.4100 ####[facility] [address] [place], [address] HCT Normal 37-47 [facility] Comment on above: Result Comment: WAS UTO, WILL COME BACK ANOTHER DAY Performed By: #### L 100.0100, L500.4050, L500.4100 ####[facility] [address] [place], [address] HGB Normal 12.0-15.0 [facility] Comment on above: Result Comment: WAS UTO, WILL COME BACK ANOTHER DAY Performed By: #### L 100.0100, L500.4050, L500.4100 ####[facility] [address] [place], [address] MCH Normal 27.0-32.0 [facility] Comment on above: Result Comment: WAS UTO, WILL COME BACK ANOTHER DAY Performed By: #### L 100.0100, L500.4050, L500.4100 ####[facility] [address] [place], [address] MCHC Normal 32-36 [facility] Comment on above: Result Comment: WAS UTO, WILL COME BACK ANOTHER DAY Performed By: #### L 100.0100, L500.4050, L500.4100 ####[facility] [address] [place], [address] MCV Normal 81-99 [facility] Comment on above: Result Comment: WAS UTO, WILL COME BACK ANOTHER DAY Performed By: #### L 100.0100, L500.4050, L500.4100 ####[facility] [address] [place], [address] NEUT% Normal 47-70 [facility] Comment on above: Result Comment: WAS UTO, WILL COME BACK ANOTHER DAY Performed By: #### L 100.0100, L500.4050, L500.4100 ####[facility] [address] [place], [address] PLT Normal 150-450 [facility] Comment on above: Result Comment: WAS UTO, WILL COME BACK ANOTHER DAY Performed By: #### L 100.0100, L500.4050, L500.4100 ####[facility] [address] [place], [address] RBC Normal 4.2-5.4 [facility] Comment on above: Result Comment: WAS UTO, WILL COME BACK ANOTHER DAY Performed By: #### L 100.0100, L500.4050, L500.4100 ####[facility] [address] [place], [address] RDW CV Normal 11.6-14.6 [facility] Comment on above: Result Comment: WAS UTO, WILL COME BACK ANOTHER DAY Performed By: #### L 100.0100, L500.4050, L500.4100 ####[facility] [address] [place], [address] RDW SD Normal 35.1-43.9 [facility] Comment on above: Result Comment: WAS UTO, WILL COME BACK ANOTHER DAY Performed By: #### L 100.0100, L500.4050, L500.4100 ####[facility] [address] [place], [address] WBC Normal 4.4-11.0 [facility] Comment on above: Result Comment: WAS UTO, WILL COME BACK ANOTHER DAY Performed By: #### L 100.0100, L500.4050, L500.4100 ####[facility] [address] [place], [address] Comprehensive Metabolic Prof ilon 12-27-2024 ALB Normal 3.4-4.8 [facility] Comment on above: Result Comment: WAS UTO, WILL COME BACK ANOTHER DAY Performed By: #### L 100.0100, L500.4050, L500.4100 ####[facility] [address] [place], [address] ALK PHOS Normal 35-104 [facility] Comment on above: Result Comment: WAS UTO, WILL COME BACK ANOTHER DAY Performed By: #### L 100.0100, L500.4050, L500.4100 ####[facility] [address] [place], [address] ALT Normal <=34 [facility] Comment on above: Result Comment: WAS UTO, WILL COME BACK ANOTHER DAY Performed By: #### L 100.0100, L500.4050, L500.4100 ####[facility] [address] [place], [address] AST Normal <=31 [facility] Comment on above: Result Comment: WAS UTO, WILL COME BACK ANOTHER DAY Performed By: #### L 100.0100, L500.4050, L500.4100 ####[facility] [address] [place], [address] BUN Normal 4-19 [facility] Comment on above: Result Comment: WAS UTO, WILL COME BACK ANOTHER DAY Performed By: #### L 100.0100, L500.4050, L500.4100 ####[facility] [address] [place], [address] BUN/CRE Normal 10-20 [facility] Comment on above: Result Comment: WAS UTO, WILL COME BACK ANOTHER DAY Performed By: #### L 100.0100, L500.4050, L500.4100 ####[facility] [address] [place], [address] Calcium Normal 7.6-11.0 [facility] Comment on above: Result Comment: WAS UTO, WILL COME BACK ANOTHER DAY Performed By: #### L 100.0100, L500.4050, L500.4100 ####[facility] [address] [place], [address] CL Normal 98-108 [facility] Comment on above: Result Comment: WAS UTO, WILL COME BACK ANOTHER DAY Performed By: #### L 100.0100, L500.4050, L500.4100 ####[facility] [address] [place], [address] CO2 Normal 21.0-32.0 [facility] Comment on above: Result Comment: WAS UTO, WILL COME BACK ANOTHER DAY Performed By: #### L 100.0100, L500.4050, L500.4100 ####[facility] [address] [place], [address] CREAT,SERUM Normal 0.70-1.20 [facility] Comment on above: Result Comment: WAS UTO, WILL COME BACK ANOTHER DAY Performed By: #### L 100.0100, L500.4050, L500.4100 ####[facility] [address] [place], [address] eGFR Normal >60 [facility] Comment on above: Result Comment: WAS UTO, WILL COME BACK ANOTHER DAY Performed By: #### L 100.0100, L500.4050, L500.4100 ####[facility] [address] [place], [address] GAP Normal 5-15 [facility] Comment on above: Result Comment: WAS UTO, WILL COME BACK ANOTHER DAY Performed By: #### L 100.0100, L500.4050, L500.4100 ####[facility] [address] [place], [address] GLU Normal 70-99 [facility] Comment on above: Result Comment: WAS UTO, WILL COME BACK ANOTHER DAY Performed By: #### L 100.0100, L500.4050, L500.4100 ####[facility] [address] [place], [address] Potassium Normal 3.3-5.1 [facility] Comment on above: Result Comment: WAS UTO, WILL COME BACK ANOTHER DAY Performed By: #### L 100.0100, L500.4050, L500.4100 ####[facility] [address] [place], [address] T BILI Normal 0.00-1.30 [facility] Comment on above: Result Comment: WAS UTO, WILL COME BACK ANOTHER DAY Performed By: #### L 100.0100, L500.4050, L500.4100 ####[facility] [address] [place], [address] T PROT Normal 5.9-8.4 [facility] Comment on above: Result Comment: WAS UTO, WILL COME BACK ANOTHER DAY Performed By: #### L 100.0100, L500.4050, L500.4100 ####[facility] [address] [place], [address] Comprehensive Metabolic Profil Normal 133-145 [facility] Comment on above: Result Comment: WAS UTO, WILL COME BACK ANOTHER DAY Performed By: #### L 100.0100, L500.4050, L500.4100 ####[facility] [address] [place], [address] Lipid Profileon 12-27-2024 CHOL Normal <=200 [facility] Comment on above: Result Comment: WAS UTO, WILL COME BACK ANOTHER DAY Performed By: #### L 100.0100, L500.4050, L500.4100 ####[facility] [address] [place], [address] CHOL:HDL Normal [facility] Comment on above: Result Comment: WAS UTO, WILL COME BACK ANOTHER DAY Performed By: #### L 100.0100, L500.4050, L500.4100 ####[facility] [address] [place], [address] CLDL Normal [facility] Comment on above: Result Comment: WAS UTO, WILL COME BACK ANOTHER DAY Performed By: #### L 100.0100, L500.4050, L500.4100 ####[facility] [address] [place], [address] HDL Normal [facility] Comment on above: Result Comment: WAS UTO, WILL COME BACK ANOTHER DAY Performed By: #### L 100.0100, L500.4050, L500.4100 ####[facility] [address] [place], [address] TRIG Normal [facility] Comment on above: Result Comment: WAS UTO, WILL COME BACK ANOTHER DAY Performed By: #### L 100.0100, L500.4050, L500.4100 ####[facility] [address] [place], [address] VLDL Normal 5-40 [facility] Comment on above: Result Comment: WAS UTO, WILL COME BACK ANOTHER DAY Performed By: #### L 100.0100, L500.4050, L500.4100 ####[facility] [address] [place], [address] Absolute lymphocyte countOrd ered By: Candelario Santana on 09-25-2024 Lymphocytes Auto (Unsp spec) [#/Vol] 2.89 10*3/uL 0.83-4.51 [facility] Absolute neutrophil countOrd ered By: Candelario Santana on 09-25-2024 Neutrophils (Bld) [#/Vol] 4.6 10*3/uL 2.0-7.7 [facility] Albumin to globulin ratioOrd ered By: Candelario Santana on 09-25-2024 Albumin/Globulin [Mass ratio] 0.7 {ratio} Low 0.9-2.4 [facility] Automated lymphocyte count a s percentage of total leukocytesOrdered By: Candelario Santana on 09-25-2024 Lymphocytes/100 WBC Auto (Unsp spec) 33.8 % -41 [facility] Basophil percentageOrdered B y: Candelario Max on 09-25-2024 Basophils/100 WBC (Bld) 0.5 % 0-1 [facility] Bilirubin, totalOrdered By: Candelario Max on 09-25-2024 Bilirubin [Mass/Vol] 1.10 mg/dL High 0.20-1.00 [facility] Comment on above: For patients on eltr ombopag therapy, use of Dimension [place] TBIL is not recommended. Blood urea nitrogen (BUN)/cr eatinine ratioOrdered By: Candelario Santana on 09-25-2024 Urea nitrogen/Creatinine [Mass ratio] 17.2 mg/mg 10-20 [facility] CBC W/Diff, Automatedon Absolute Lymph 2.89 X10 3/uL Normal 0.83-4.51 [facility] Comment on above: Performed By: #### L 100.0100, L502.0250, L501.9520, L506.1000, L500.4100, L500.4050, L501.9985 ####[facility] [address] [place], [address] Absolute Neut 4.6 X10 3/uL Normal 2.0-7.7 [facility] Comment on above: Performed By: #### L 100.0100, L502.0250, L501.9520, L506.1000, L500.4100, L500.4050, L501.9985 ####[facility] [address] [place], [address] Basophils/100 WBC (Bld) 0.5 % Normal 0-1 [facility] Comment on above: Performed By: #### L 100.0100, L502.0250, L501.9520, L506.1000, L500.4100, L500.4050, L501.9985 ####[facility] [address] [place], [address] Eosinophils/100 WBC (Bld) 2.6 % Normal 0-5 [facility] Comment on above: Performed By: #### L 100.0100, L502.0250, L501.9520, L506.1000, L500.4100, L500.4050, L501.9985 ####[facility] [address] [place], [address] Erythrocyte distribution width (RBC) [Ratio] 13.6 % Normal 11.6-14.6 [facility] Comment on above: Performed By: #### L 100.0100, L502.0250, L501.9520, L506.1000, L500.4100, L500.4050, L501.9985 ####[facility] [address] [place], [address] Hematocrit (Bld) [Volume fraction] 31.9 % Low 37-47 [facility] Comment on above: Performed By: #### L 100.0100, L502.0250, L501.9520, L506.1000, L500.4100, L500.4050, L501.9985 ####[facility] [address] [place], [address] Hemoglobin (Bld) [Mass/Vol] 11.4 g/dL Low 12.0-15.0 [facility] Comment on above: Performed By: #### L 100.0100, L502.0250, L501.9520, L506.1000, L500.4100, L500.4050, L501.9985 ####[facility] [address] [place], [address] IG% 0.200 Normal 0.0-0.9 [facility] Comment on above: Result Comment: IG% - Immature Granulocytes (promyelocytes, myelocytes andmetamyelocytes) > 1% indicates that a LEFT SHIFT is Present. Performed By: #### L 100.0100, L502.0250, L501.9520, L506.1000, L500.4100, L500.4050, L501.9985 ####[facility] [address] [place], [address] Lymphocytes/100 WBC (Bld) 33.8 % Normal 19-41 [facility] Comment on above: Performed By: #### L 100.0100, L502.0250, L501.9520, L506.1000, L500.4100, L500.4050, L501.9985 ####[facility] [address] [place], [address] MCH (RBC) [Entitic mass] 31.6 pg Normal 27.0-32.0 [facility] Comment on above: Performed By: #### L 100.0100, L502.0250, L501.9520, L506.1000, L500.4100, L500.4050, L501.9985 ####[facility] [address] [place], [address] MCHC (RBC) [Mass/Vol] 35.7 g/dL Normal 32-36 [facility] Comment on above: Performed By: #### L 100.0100, L502.0250, L501.9520, L506.1000, L500.4100, L500.4050, L501.9985 ####[facility] [address] [place], [address] MCV (RBC) [Entitic vol] 88.4 fL Normal 81-99 [facility] Comment on above: Performed By: #### L 100.0100, L502.0250, L501.9520, L506.1000, L500.4100, L500.4050, L501.9985 ####[facility] [address] [place], [address] Monocytes/100 WBC (Bld) 9.6 % Normal 0-10 [facility] Comment on above: Performed By: #### L 100.0100, L502.0250, L501.9520, L506.1000, L500.4100, L500.4050, L501.9985 ####[facility] [address] [place], [address] Neutrophils/100 WBC (Bld) 53.3 % Normal 47-70 [facility] Comment on above: Performed By: #### L 100.0100, L502.0250, L501.9520, L506.1000, L500.4100, L500.4050, L501.9985 ####[facility] [address] [place], [address] Nucleated RBC (Bld) [#/Vol] 0 10*3/uL Normal 0-5 [facility] Comment on above: Performed By: #### L 100.0100, L502.0250, L501.9520, L506.1000, L500.4100, L500.4050, L501.9985 ####[facility] [address] [place], [address] Platelet mean volume (Bld) [Entitic vol] 10.0 fL Normal 6.2-12.0 [facility] Comment on above: Performed By: #### L 100.0100, L502.0250, L501.9520, L506.1000, L500.4100, L500.4050, L501.9985 ####[facility] [address] [place], [address] Platelets (Bld) [#/Vol] 225 10*3/uL Normal 150-450 [facility] [facility] Comment on above: Performed By: #### L 100.0100, L502.0250, L501.9520, L506.1000, L500.4100, L500.4050, L501.9985 ####[facility] [address] [place], [address] RBC (Bld) [#/Vol] 3.61 10*6/uL Low 4.2-5.4 [facility] Comment on above: Performed By: #### L 100.0100, L502.0250, L501.9520, L506.1000, L500.4100, L500.4050, L501.9985 ####[facility] [address] [place], [address] RDW SD 42.6 fl Normal 35.1-43.9 [facility] Comment on above: Performed By: #### L 100.0100, L502.0250, L501.9520, L506.1000, L500.4100, L500.4050, L501.9985 ####[facility] [address] [place], [address] WBC (Bld) [#/Vol] 8.6 10*3/uL Normal 4.4-11.0 [facility] Comment on above: Performed By: #### L 100.0100, L502.0250, L501.9520, L506.1000, L500.4100, L500.4050, L501.9985 ####[facility] [address] [place], [address] Carbon dioxide measurementOr dered By: Candelario Santana on 09-25-2024 CO2 [Moles/Vol] 24.0 mmol/L 21.0-32.0 [facility] Chloride measurementOrdered By: Candelario Santana on 09-25-2024 Chloride [Moles/Vol] 104 mmol/L 98-107 [facility] Comprehensive Metabolic Prof ilon 09-25-2024 Albumin [Mass/Vol] 3.2 g/dL Normal 3.2-5.0 [facility] Comment on above: Performed By: #### L 100.0100, L502.0250, L501.9520, L506.1000, L500.4100, L500.4050, L501.9985 ####[facility] [address] [place], [address] Albumin/Globulin [Mass ratio] 0.7 {ratio} Low 0.9-2.4 [facility] Comment on above: Performed By: #### L 100.0100, L502.0250, L501.9520, L506.1000, L500.4100, L500.4050, L501.9985 ####[facility] [address] [place], [address] ALK P 89 U/L Normal 45-117 [facility] Comment on above: Performed By: #### L 100.0100, L502.0250, L501.9520, L506.1000, L500.4100, L500.4050, L501.9985 ####[facility] [address] [place], [address] ALT [Catalytic activity/Vol] 18 U/L Normal 13-56 [facility] Comment on above: Performed By: #### L 100.0100, L502.0250, L501.9520, L506.1000, L500.4100, L500.4050, L501.9985 ####[facility] [address] [place], [address] AST [Catalytic activity/Vol] 26 U/L Normal 15-37 [facility] Comment on above: Performed By: #### L 100.0100, L502.0250, L501.9520, L506.1000, L500.4100, L500.4050, L501.9985 ####[facility] [address] [place], [address] Bilirubin [Mass/Vol] 1.10 mg/dL High 0.20-1.00 [facility] Comment on above: Result Comment: For patients on eltrombopag therapy, use of Dimension [place] TBIL is not recommended. Performed By: #### L 100.0100, L502.0250, L501.9520, L506.1000, L500.4100, L500.4050, L501.9985 ####[facility] [address] [place], [address] BUN/CRE 17.2 RATIO Normal 10-20 [facility] Comment on above: Performed By: #### L 100.0100, L502.0250, L501.9520, L506.1000, L500.4100, L500.4050, L501.9985 ####[facility] [address] [place], [address] CA,Total 9.0 mg/dL Normal 8.5-10.1 [facility] Comment on above: Performed By: #### L 100.0100, L502.0250, L501.9520, L506.1000, L500.4100, L500.4050, L501.9985 ####[facility] [address] [place], [address] Chloride [Moles/Vol] 104 mmol/L Normal 98-107 [facility] Comment on above: Performed By: #### L 100.0100, L502.0250, L501.9520, L506.1000, L500.4100, L500.4050, L501.9985 ####[facility] [address] [place], [address] CO2 [Moles/Vol] 24.0 mmol/L Normal 21.0-32.0 [facility] Comment on above: Performed By: #### L 100.0100, L502.0250, L501.9520, L506.1000, L500.4100, L500.4050, L501.9985 ####[facility] [address] [place], [address] Creatinine [Mass/Vol] 0.87 mg/dL Normal 0.55-1.02 [facility] Comment on above: Result Comment: The validity of the calculated GFR GFRAA in patients over70 years has not been determined. Clinical correlation isessential. Performed By: #### L 100.0100, L502.0250, L501.9520, L506.1000, L500.4100, L500.4050, L501.9985 ####[facility] [address] [place], [address] EST GFR - AA 81 mL/min Normal >60 [facility] Comment on above: Result Comment: Afri can Palestinian GFR Calc Performed By: #### L 100.0100, L502.0250, L501.9520, L506.1000, L500.4100, L500.4050, L501.9985 ####[facility] [address] [place], [place], [phone] GAP 9 Normal 5-15 [facility] Comment on above: Performed By: #### L 100.0100, L502.0250, L501.9520, L506.1000, L500.4100, L500.4050, L501.9985 ####[facility] [address] [place], [address] GFR/1.73 sq M.predicted among non-blacks MDRD (S/P/Bld) [Vol rate/Area] 67 mL/min/{1.73_m2} Normal >60 [facility] Comment on above: Result Comment: Non- GFR Calc Performed By: #### L 100.0100, L502.0250, L501.9520, L506.1000, L500.4100, L500.4050, L501.9985 ####[facility] [address] [place], [place], [phone] Globulin (S) [Mass/Vol] 4.3 g/dL High 2.2-4.2 [facility] Comment on above: Performed By: #### L 100.0100, L502.0250, L501.9520, L506.1000, L500.4100, L500.4050, L501.9985 ####[facility] [address] [place], [address] Glucose [Mass/Vol] 176 mg/dL High 74-106 [facility] Comment on above: Result Comment: Fast ing Glucose result greater than or equal to 126 mg/dLsuggests DIABETES MELLITUS per A.D.A. criteria. Performed By: #### L 100.0100, L502.0250, L501.9520, L506.1000, L500.4100, L500.4050, L501.9985 ####[facility] [address] [place], [address] Potassium [Moles/Vol] 3.3 mmol/L Low 3.5-5.1 [facility] Comment on above: Performed By: #### L 100.0100, L502.0250, L501.9520, L506.1000, L500.4100, L500.4050, L501.9985 ####[facility] [address] [place], [address] Sodium [Moles/Vol] 137 mmol/L Normal 136-145 [facility] Comment on above: Performed By: #### L 100.0100, L502.0250, L501.9520, L506.1000, L500.4100, L500.4050, L501.9985 ####[facility] [address] [place], [address] T PROT 7.5 g/dL Normal 6.4-8.2 [facility] Comment on above: Performed By: #### L 100.0100, L502.0250, L501.9520, L506.1000, L500.4100, L500.4050, L501.9985 ####[facility] [address] [place], [address] Urea nitrogen [Mass/Vol] 15 mg/dL Normal 7-18 [facility] Comment on above: Performed By: #### L 100.0100, L502.0250, L501.9520, L506.1000, L500.4100, L500.4050, L501.9985 ####[facility] [address] [place], [address] Eosinophil percentageOrdered By: Candelario Santana on 09-25-2024 Eosinophils/100 WBC (Bld) 2.6 % 0-5 [facility] Erythrocyte distribution wid th ratioOrdered By: Candelario Santana on 09-25-2024 Erythrocyte distribution width (RBC) [Ratio] 13.6 % 11.6-14.6 [facility] Erythrocyte distribution wid th standard deviationOrdered By: Candelario Santana on 09-25-2024 Erythrocyte distribution width (RBC) [Ratio] 42.6 fl 35.1-43.9 [facility] Glomerular filtration rate ( GFR) estimationOrdered By: Candelario Santana on 09-25-2024 GFR/1.73 sq M.predicted among non-blacks MDRD (S/P/Bld) [Vol rate/Area] 67 mL/min/{1.73_m2} >60 [facility] Comment on above: Non- GFR Calc Glucose measurementOrdered B y: Candelario Santana on 09-25-2024 Glucose [Mass/Vol] 176 mg/dL High 74-106 [facility] Comment on above: Fasting Glucose resu lt greater than or equal to 126 mg/dL suggests DIABETES MELLITUS per A.D.A. criteria. Hematocrit Auto (Bld) [Volum e fraction]Ordered By: Candelario Santana on 09-25-2024 Hematocrit (Bld) [Volume fraction] 31.9 % Low 37-47 [facility] Hemoglobin A1c percentageOrd ered By: Candelario Santana on 09-25-2024 HbA1c (Bld) [Mass fraction] 4.7 % Normal 3.8-5.6 [facility] Comment on above: Normal < 5.7 % Predi abetic 5.7 - 6.4 % Diabetic >or= 6.5 % Please note range changes. Result Comment: Norm al < 5.7 % Prediabetic 5.7 - 6.4 % Diabetic >or= 6.5 % Please note range changes. Performed By: #### L 100.0100, L502.0250, L501.9520, L506.1000, L500.4100, L500.4050, L501.9985 ####[facility] [address] [place], [place], [address] Hemoglobin measurementOrdere d By: Candelario Santana on 09-25-2024 Hemoglobin (Bld) [Mass/Vol] 11.4 g/dL Low 12.0-15.0 [facility] High density lipoprotein (HD L) measurementOrdered By: Candelario Santana on 09-25-2024 Cholesterol in HDL [Mass/Vol] 50 mg/dL >40 [facility] Comment on above: The drugs N-Acetylcy steine and Metamizole may falsely depress this assay. Reference Range HDL <40 mg/dL Low HDL Cholesterol HDL >or= 60 mg/dL High HDL Cholesterol Immature granulocytes/100 WB C Auto (Bld)Ordered By: Candelario Santana on 09-25-2024 Immature granulocytes/100 WBC (Bld) 0.200 % 0.0-0.9 [facility] Comment on above: IG% - Immature Granu locytes (promyelocytes, myelocytes and metamyelocytes) > 1% indicates that a LEFT SHIFT is Present. Laboratory - Chemistry and C hemistry - challengeOrdered By: Candelario Santana on 09-25-2024 AST [Catalytic activity/Vol] 26 U/L 15-37 [facility] Lipid Profileon 09-25-2024 Cholesterol [Mass/Vol] 158 mg/dL Normal 200 [facility] Comment on above: Result Comment: <200 mg/dL Desirable 200-240 mg/dL Borderline >240 mg/dL High Risk Performed By: #### L 100.0100, L502.0250, L501.9520, L506.1000, L500.4100, L500.4050, L501.9985 ####[facility] [address] [place], [address] Cholesterol in HDL [Mass/Vol] 50 mg/dL Normal [facility] Comment on above: Result Comment: The drugs N-Acetylcysteine and Metamizole may falselydepress this assay. Reference Range HDL <40 mg/dL Low HDL Cholesterol HDL >or= 60 mg/dL High HDL Cholesterol Performed By: #### L 100.0100, L502.0250, L501.9520, L506.1000, L500.4100, L500.4050, L501.9985 ####[facility] [address] [place], [address] Cholesterol in LDL [Mass/Vol] 85 mg/dL Normal 0-130 [facility] Comment on above: Performed By: #### L 100.0100, L502.0250, L501.9520, L506.1000, L500.4100, L500.4050, L501.9985 ####[facility] [address] [place], [address] Cholesterol in VLDL [Mass/Vol] 23 mg/dL Normal 5-40 [facility] Comment on above: Performed By: #### L 100.0100, L502.0250, L501.9520, L506.1000, L500.4100, L500.4050, L501.9985 ####[facility] [address] [place], [address] Triglyceride [Mass/Vol] 114 mg/dL Normal [facility] Comment on above: Result Comment: The drugs N-Acetylcysteine and Metamizole may falselydepress this assay.Serum Triglycerides Reference Interval Normal <150 mg/dL Borderline high 150 - 199 mg/dL High 200 - 499 mg/dL Very High > or = 500 mg/dL Performed By: #### L 100.0100, L502.0250, L501.9520, L506.1000, L500.4100, L500.4050, L501.9985 ####[facility] [address] [place], [place], [id number] Low density lipoprotein (LDL ) cholesterol measurementOrdered By: Candelario Santana on 09-25-2024 Cholesterol in LDL [Mass/Vol] 85 mg/dL 0-130 [facility] MCV (mean corpuscular volume ) determinationOrdered By: Candelario Santana on 09-25-2024 MCV (RBC) [Entitic vol] 88.4 fL 81-99 [facility] Mean corpuscular hemoglobin (MCH) determinationOrdered By: Candelario Santana on 09-25-2024 MCH (RBC) [Entitic mass] 31.6 pg 27.0-32.0 [facility] Mean corpuscular hemoglobin concentration (MCHC) determinationOrdered By: Candelario Santana on 09-25-2024 MCHC (RBC) [Mass/Vol] 35.7 g/dL 32-36 [facility] Mean platelet volume determi nationOrdered By: Candelario Santana on 09-25-2024 Platelet mean volume (Bld) [Entitic vol] 10.0 fL 6.2-12.0 [facility] Microalb:Creat Ratio,Random URon 09-25-2024 MALB:CRE Normal <30 mg/g CRE [facility] Comment on above: Result Comment: UTO Performed By: #### L 100.0100, L502.0250, L501.9520, L506.1000, L500.4100, L500.4050, L501.9985 ####[facility] [address] [place], [place], [id number] MICROALBUMIN,UR Normal NO RANGE EST. [facility] Comment on above: Result Comment: UTO Performed By: #### L 100.0100, L502.0250, L501.9520, L506.1000, L500.4100, L500.4050, L501.9985 ####[facility] [address] [place], [place], [phone] Monocyte percentageOrdered B y: Candelario Santana on 09-25-2024 Monocytes/100 WBC (Bld) 9.6 % 0-10 [facility] Neutrophil percentageOrdered By: Candelario Santana on 09-25-2024 Neutrophils/100 WBC (Bld) 53.3 % 47-70 [facility] Nucleated red blood cell per centageOrdered By: Candelario Santana on 09-25-2024 Nucleated RBC/100 WBC (Bld) [Ratio] 0 % 0-5 [facility] Platelet countOrdered By: Ben Santana on 09-25-2024 Platelets (Bld) [#/Vol] 225 10*3/uL 150-450 [facility] Potassium measurementOrdered By: Candelario Santana on 09-25-2024 Potassium [Moles/Vol] 3.3 mmol/L Low 3.5-5.1 [facility] RBC Auto (Bld) [#/Vol]Ordere d By: Candelario Santana on 09-25-2024 RBC (Bld) [#/Vol] 3.61 10*6/uL Low 4.2-5.4 [facility] Serum anion gap measurementO rdered By: Candelario Santana on 09-25-2024 Anion gap [Moles/Vol] 9 mmol/L 5-15 [facility] Serum globulin measurementOr dered By: Candelario Santana on 09-25-2024 Globulin (S) [Mass/Vol] 4.3 g/dL High 2.2-4.2 [facility] Serum or plasma alanine cornejo otransferase (ALT) measurementOrdered By: Candelario Santana 09-25-2024 ALT [Catalytic activity/Vol] 18 U/L 13-56 [facility] Serum or plasma albumin sabino urement (mass/volume)Ordered By: Candelario Santana on 09-25-2024 Albumin [Mass/Vol] 3.2 g/dL 3.2-5.0 [facility] Serum or plasma alkaline shaista sphatase measurementOrdered By: Candelario Santana 09-25-2024 ALP [Catalytic activity/Vol] 89 U/L 45-117 [facility] Serum or plasma calcium sabino urement (mass/volume)Ordered By: Candelario Santana 09-25-2024 Calcium [Mass/Vol] 9.0 mg/dL 8.5-10.1 [facility] Serum or plasma cholesterol measurement (mass/volume)Ordered By: Candelario Santana on 09-25-2024 Cholesterol [Mass/Vol] 158 mg/dL <200 [facility] Comment on above: <200 mg/dL Desirable 200-240 mg/dL Borderline >240 mg/dL High Risk Serum or plasma creatinine m easurement (mass/volume)Ordered By: Candelario Santana on 09-25-2024 Creatinine [Mass/Vol] 0.87 mg/dL 0.55-1.02 [facility] Comment on above: The validity of the calculated GFR & GFRAA in patients over 70 years has not been determined. Clinical correlation is essential. Serum or plasma thyroid stim ulating hormone (TSH) measurement (units/volume)Ordered By: Candelario Santana on 09-25-2024 TSH Qn 5.250 uIU/mL High 0.358-3.740 [facility] Serum or plasma urea nitroge n measurement (mass/volume)Ordered By: Candelario Santana on 09-25-2024 Urea nitrogen [Mass/Vol] 15 mg/dL 7-18 [facility] Sodium levelOrdered By: Candelario Santana on 09-25-2024 Sodium [Moles/Vol] 137 mmol/L 136-145 [facility] Thyroid Stim Hormone (TSH)on 09-25-2024 TSH 5.250 uIU/mL High 0.358-3.740 [facility] Comment on above: Performed By: #### L 100.0100, L502.0250, L501.9520, L506.1000, L500.4100, L500.4050, L501.9985 ####[facility] [address] [place], [place], [address] Total proteinOrdered By: Candelario Santana on 09-25-2024 Protein [Mass/Vol] 7.5 g/dL 6.4-8.2 [facility] Triglycerides measurementOrd ered By: Candelario Santana on 09-25-2024 Triglyceride [Mass/Vol] 114 mg/dL <199 [facility] Comment on above: The drugs N-Acetylcy steine and Metamizole may falsely depress this assay.Serum Triglycerides Reference Interval Normal <150 mg/dL Borderline high 150 - 199 mg/dL High 200 - 499 mg/dL Very High > or = 500 mg/dL Very low density lipoprotein (VLDL) cholesterol measurementOrdered By: Candelario Santana on 09-25-2024 Very low density lipoprotein (VLDL) cholesterol measurement 23 mg/dL 5-40 [facility] Vitamin D,25 Hydroxyon 09-25 Vitamin D 25-OH 26.7 ng/mL Normal [facility] Comment on above: Result Comment: Jojo min D 25(OH) Status Range Deficiency <20 ng/mL (50nmol/L) Insufficiency 20 - 30 ng/mL (50 - 75 nmol/L) Sufficiency 30 - 100 ng/mL (75 - 250 nmol/L) Toxicity >100 ng/mL (>250 nmol/L) Performed By: #### L 100.0100, L502.0250, L501.9520, L506.1000, L500.4100, L500.4050, L501.9985 ####[facility] [address], [place], [id number] White blood cell (WBC) count Ordered By: Candelario Santana on 09-25-2024 WBC (Bld) [#/Vol] 8.6 10*3/uL 4.4-11.0 [facility] Absolute lymphocyte countOrd ered By: Candelario Santana on 12-20-2023 Lymphocytes Auto (Unsp spec) [#/Vol] 2.35 10*3/uL 0.83-4.51 [facility] Automated lymphocyte count a s percentage of total leukocytesOrdered By: Candelario Santana on 12-20-2023 Lymphocytes/100 WBC Auto (Unsp spec) 40.9 % 19-41 [facility] Basophil percentageOrdered B y: Candelario Santana on 12-20-2023 Basophils/100 WBC (Bld) 0.7 % 0-1 [facility] Bilirubin [Mass/Vol] 1.10 mg/dL 0.20-1.00 [facility] Comment on above: For patients on eltr ombopag therapy, use of Dimension [place] TBIL is not recommended. Chloride [Moles/Vol] 107 mmol/L 98-107 [facility] Cholesterol [Mass/Vol] 144 mg/dL <200 [facility] Comment on above: <200 mg/dL Desirable 200-240 mg/dL Borderline >240 mg/dL High Risk Eosinophils/100 WBC (Bld) 2.6 % 0-5 [facility] Glucose [Mass/Vol] 284 mg/dL 74-106 [facility] Comment on above: Glucose result great er than or equal to 200 mg/dLsuggests DIABETES MELLITUS per A.D.A. criteria. Hemoglobin (Bld) [Mass/Vol] 10.6 g/dL 12.0-15.0 [facility] Monocytes/100 WBC (Bld) 9.9 % 0-10 [facility] Neutrophils (Bld) [#/Vol] 2.6 10*3/uL 2.0-7.7 [facility] Neutrophils/100 WBC (Bld) 45.7 % 47-70 [facility] Potassium [Moles/Vol] 3.6 mmol/L 3.5-5.1 [facility] Protein [Mass/Vol] 7.3 g/dL 6.4-8.2 [facility] Sodium [Moles/Vol] 137 mmol/L 136-145 [facility] Triglyceride [Mass/Vol] 106 mg/dL <199 [facility] Comment on above: The drugs N-Acetylcy steine and Metamizole may falsely depress this assay.Serum Triglycerides Reference Interval Normal <150 mg/dL Borderline high 150 - 199 mg/dL High 200 - 499 mg/dL Very High > or = 500 mg/dL WBC (Bld) [#/Vol] 5.7 10*3/uL 4.4-11.0 [facility] Determination of erythrocyte mean corpuscular volume (MCV)Ordered By: Candelario Santana on 12-20-2023 MCV (RBC) [Entitic vol] 87.8 fL 81-99 [facility] Erythrocyte distribution wid th ratioOrdered By: Candelario Santana on 12-20-2023 Erythrocyte distribution width (RBC) [Ratio] 13.1 % 11.6-14.6 [facility] Erythrocyte distribution wid th standard deviationOrdered By: Candelario Santana on 12-20-2023 Erythrocyte distribution width (RBC) [Entitic vol] 41.3 fL 35.1-43.9 [facility] Hematocrit Auto (Bld) [Volum e fraction]Ordered By: Candelario Santana on 12-20-2023 Hematocrit (Bld) [Volume fraction] 30.1 % 37-47 [facility] Immature granulocytes/100 WB C Auto (Bld)Ordered By: Candelario Santana on 12-20-2023 Immature granulocytes/100 WBC (Bld) 0.200 % 0.0-0.9 [facility] Comment on above: IG% - Immature Granu locytes (promyelocytes, myelocytes and metamyelocytes) > 1% indicates that a LEFT SHIFT is Present. Laboratory - Chemistry and C hemistry - challengeOrdered By: Candelario Santana on 12-20-2023 Albumin/Globulin [Mass ratio] 0.7 {ratio} 0.9-2.4 [facility] ALP [Catalytic activity/Vol] 83 U/L 45-117 [facility] ALT [Catalytic activity/Vol] 17 U/L 13-56 [facility] Cholesterol in HDL [Mass/Vol] 45 mg/dL >40 [facility] Comment on above: The drugs N-Acetylcy steine and Metamizole may falsely depress this assay. Reference Range HDL <40 mg/dL Low HDL Cholesterol HDL >or= 60 mg/dL High HDL Cholesterol Cholesterol in LDL [Mass/Vol] 78 mg/dL 0-130 [facility] CO2 [Moles/Vol] 25.0 mmol/L 21.0-32.0 [facility] Globulin (S) [Mass/Vol] 4.3 g/dL 2.2-4.2 [facility] Urea nitrogen/Creatinine [Mass ratio] 9.3 mg/mg 10-20 [facility] Laboratory - Hematology and Cell countsOrdered By: Candelario Santana on 12-20-2023 MCH (RBC) [Entitic mass] 30.9 pg 27.0-32.0 [facility] MCHC (RBC) [Mass/Vol] 35.2 g/dL 32-36 [facility] Nucleated RBC/100 WBC (Bld) [Ratio] 0 % 0-5 [facility] Platelet mean volume (Bld) [Entitic vol] 9.9 fL 6.2-12.0 [facility] Platelets (Bld) [#/Vol] 183 10*3/uL 150-450 [facility] No Panel InformationOrdered By: Candelario Santana on 12-20-2023 Estimated GFR (MDRD) Amer 96 mL/min >60 [facility] Comment on above: GFR Calc Estimated GFR (MDRD) Non-Af Amer 80 mL/min >60 [facility] Comment on above: Non- GFR Calc Vitamin D 25-Hydroxy 19.3 ng/mL [facility] Comment on above: Vitamin D 25(OH) Sta tus Range Deficiency <20 ng/mL (50nmol/L) Insufficiency 20 - 30 ng/mL (50 - 75 nmol/L) Sufficiency 30 - 100 ng/mL (75 - 250 nmol/L) Toxicity >100 ng/mL (>250 nmol/L) VLDL Cholesterol 21 mg/dL 5-40 [facility] RBC Auto (Bld) [#/Vol]Ordere d By: Candelario Santana on 12-20-2023 RBC (Bld) [#/Vol] 3.43 10*6/uL 4.2-5.4 [facility] Serum or plasma calcium sabino urement (mass/volume)Ordered By: Candelario Santana on 12-20-2023 Calcium [Mass/Vol] 8.5 mg/dL 8.5-10.1 [facility] Serum or plasma creatinine m easurement (mass/volume)Ordered By: Candelario Santana 12-20-2023 Creatinine [Mass/Vol] 0.75 mg/dL 0.55-1.02 [facility] Comment on above: The validity of the calculated GFR & GFRAA in patients over 70 years has not been determined. Clinical correlation is essential. Serum or plasma thyroid stim ulating hormone (TSH) measurement (units/volume)Ordered By: Candelario Santana on 12-20-2023 TSH Qn 2.06 uIU/mL 0.358-3.74 [facility] Serum or plasma urea nitroge n measurement (mass/volume)Ordered By: Candelario Santana 12-20-2023 Urea nitrogen [Mass/Vol] 7 mg/dL 7-18 [facility] Thin prep Papanicolaou smear with manual screeningOrdered By: Candelario Santana 12-20-2023 Thin prep Papanicolaou smear with manual screening 3.0 g/dL 3.2-5.0 [facility] Thin prep Papanicolaou smear with manual screening 26 U/L 15-37 [facility] Thin prep Papanicolaou smear with manual screening 5 5-15 [facility] Whole blood hemoglobin A1c/t otal hemoglobin ratio (mass fraction)Ordered By: Candelario Santana on 12-20-2023 HbA1c (Bld) [Mass fraction] 7.2 % 3.8-5.6 [facility] Comment on above: Normal < 5.7 % Predi abetic 5.7 - 6.4 % Diabetic >or= 6.5 % Please note range changes. Absolute lymphocyte countOrd ered By: Candelario Max on 09-21-2023 Lymphocytes Auto (Unsp spec) [#/Vol] 2.70 10*3/uL 0.83-4.51 [facility] Automated lymphocyte count a s percentage of total leukocytesOrdered By: Candelario Max on 09-21-2023 Lymphocytes/100 WBC Auto (Unsp spec) 46.9 % 19-41 [facility] Basophil percentageOrdered B y: Candelario Santana on 09-21-2023 Basophils/100 WBC (Bld) 0.7 % 0-1 [facility] Bilirubin [Mass/Vol] 1.00 mg/dL 0.20-1.00 [facility] Comment on above: For patients on eltr ombopag therapy, use of Dimension [place] TBIL is not recommended. Chloride [Moles/Vol] 106 mmol/L 98-107 [facility] Cholesterol [Mass/Vol] 154 mg/dL <200 [facility] Comment on above: <200 mg/dL Desirable 200-240 mg/dL Borderline >240 mg/dL High Risk Eosinophils/100 WBC (Bld) 3.1 % 0-5 [facility] Glucose [Mass/Vol] 227 mg/dL 74-106 [facility] Comment on above: Glucose result great er than or equal to 200 mg/dLsuggests DIABETES MELLITUS per A.D.A. criteria. Hemoglobin (Bld) [Mass/Vol] 10.5 g/dL 12.0-15.0 [facility] Monocytes/100 WBC (Bld) 8.5 % 0-10 [facility] Neutrophils (Bld) [#/Vol] 2.3 10*3/uL 2.0-7.7 [facility] Neutrophils/100 WBC (Bld) 40.6 % 47-70 [facility] Potassium [Moles/Vol] 3.6 mmol/L 3.5-5.1 [facility] Protein [Mass/Vol] 7.5 g/dL 6.4-8.2 [facility] Sodium [Moles/Vol] 135 mmol/L 136-145 [facility] Triglyceride [Mass/Vol] 94 mg/dL <199 [facility] Comment on above: The drugs N-Acetylcy steine and Metamizole may falsely depress this assay.Serum Triglycerides Reference Interval Normal <150 mg/dL Borderline high 150 - 199 mg/dL High 200 - 499 mg/dL Very High > or = 500 mg/dL WBC (Bld) [#/Vol] 5.8 10*3/uL 4.4-11.0 [facility] Determination of erythrocyte mean corpuscular volume (MCV)Ordered By: Candelario Santana on 09-21-2023 MCV (RBC) [Entitic vol] 92.0 fL 81-99 [facility] Erythrocyte distribution wid th ratioOrdered By: Candelario Santana on 09-21-2023 Erythrocyte distribution width (RBC) [Ratio] 14.6 % 11.6-14.6 [facility] Erythrocyte distribution wid th standard deviationOrdered By: Candelario Santana on 09-21-2023 Erythrocyte distribution width (RBC) [Entitic vol] 48.9 fL 35.1-43.9 [facility] Hematocrit Auto (Bld) [Volum e fraction]Ordered By: Candelario Santana 09-21-2023 Hematocrit (Bld) [Volume fraction] 30.9 % 37-47 [facility] High density lipoprotein (HD L) measurementOrdered By: Candelario Santana on 09-21-2023 Cholesterol in HDL (Body fld) [Mass/Vol] 41 mg/dL >40 [facility] Comment on above: The drugs N-Acetylcy steine and Metamizole may falsely depress this assay. Reference Range HDL <40 mg/dL Low HDL Cholesterol HDL >or= 60 mg/dL High HDL Cholesterol Immature granulocytes/100 WB C Auto (Bld)Ordered By: Candelario Santana on 09-21-2023 Immature granulocytes/100 WBC (Bld) 0.200 % 0.0-0.9 [facility] Comment on above: IG% - Immature Granu locytes (promyelocytes, myelocytes and metamyelocytes) > 1% indicates that a LEFT SHIFT is Present. Laboratory - Chemistry and C hemistry - challengeOrdered By: Candelario Santana on 09-21-2023 Albumin/Globulin [Mass ratio] 0.7 {ratio} 0.9-2.4 [facility] ALP [Catalytic activity/Vol] 93 U/L 45-117 [facility] ALT [Catalytic activity/Vol] 23 U/L 13-56 [facility] CO2 [Moles/Vol] 22.0 mmol/L 21.0-32.0 [facility] Globulin (S) [Mass/Vol] 4.4 g/dL 2.2-4.2 [facility] Urea nitrogen/Creatinine [Mass ratio] 13.9 mg/mg 10-20 [facility] Laboratory - Hematology and Cell countsOrdered By: Candelario Santana on 09-21-2023 MCH (RBC) [Entitic mass] 31.3 pg 27.0-32.0 [facility] MCHC (RBC) [Mass/Vol] 34.0 g/dL 32-36 [facility] Nucleated RBC/100 WBC (Bld) [Ratio] 0 % 0-5 [facility] Platelets (Bld) [#/Vol] 185 10*3/uL 150-450 [facility] Low density lipoprotein (LDL ) cholesterol measurementOrdered By: Candelario Santana on 09-21-2023 Cholesterol in LDL (Body fld) [Moles/Vol] 94 mg/dL 0-130 [facility] No Panel InformationOrdered By: Candelario Santana on 09-21-2023 Estimated GFR (MDRD) Amer 101 mL/min >60 [facility] Comment on above: GFR Calc Estimated GFR (MDRD) Non-Af Amer 84 mL/min >60 [facility] Comment on above: Non- GFR Calc Vitamin D 25-Hydroxy 27.7 ng/mL [facility] Comment on above: Vitamin D 25(OH) Sta tus Range Deficiency <20 ng/mL (50nmol/L) Insufficiency 20 - 30 ng/mL (50 - 75 nmol/L) Sufficiency 30 - 100 ng/mL (75 - 250 nmol/L) Toxicity >100 ng/mL (>250 nmol/L) Platelet mean volume Hua-Ec ker (Bld) [Entitic vol]Ordered By: Candelario Santana on 09-21-2023 Platelet mean volume (Bld) [Entitic vol] 9.8 fL 6.2-12.0 [facility] RBC Auto (Bld) [#/Vol]Ordere d By: Candelario Santana on 09-21-2023 RBC (Bld) [#/Vol] 3.36 10*6/uL 4.2-5.4 [facility] Serum or plasma calcium sabino urement (mass/volume)Ordered By: Candelario Santana on 09-21-2023 Calcium [Mass/Vol] 8.9 mg/dL 8.5-10.1 [facility] Serum or plasma creatinine m easurement (mass/volume)Ordered By: Candelario Santana on 09-21-2023 Creatinine [Mass/Vol] 0.72 mg/dL 0.55-1.02 [facility] Comment on above: The validity of the calculated GFR & GFRAA in patients over 70 years has not been determined. Clinical correlation is essential. Serum or plasma thyroid stim ulating hormone (TSH) measurement (units/volume)Ordered By: Candelario Santana 09-21-2023 TSH Qn 2.20 uIU/mL 0.358-3.74 [facility] Serum or plasma urea nitroge n measurement (mass/volume)Ordered By: Candelario Santana 09-21-2023 Urea nitrogen [Mass/Vol] 10 mg/dL 7-18 [facility] Thin prep Papanicolaou smear with manual screeningOrdered By: Candelario Santana 09-21-2023 Thin prep Papanicolaou smear with manual screening 3.1 g/dL 3.2-5.0 [facility] Thin prep Papanicolaou smear with manual screening 29 U/L 15-37 [facility] Thin prep Papanicolaou smear with manual screening 7 5-15 [facility] Very low density lipoprotein (VLDL) cholesterol measurementOrdered By: Candelario Santana on 09-21-2023 Cholesterol in VLDL Calc [Moles/Vol] 19 mg/dL 5-40 [facility] Absolute lymphocyte countOrd ered By: Candelario Santana on 06-15-2023 Lymphocytes Auto (Unsp spec) [#/Vol] 3.02 10*3/uL 0.83-4.51 [facility] Basophil percentageOrdered B y: Candelario Santana on 06-15-2023 Basophils/100 WBC (Bld) 0.7 % 0-1 [facility] Bilirubin [Mass/Vol] 1.30 mg/dL 0.20-1.00 [facility] Comment on above: For patients on eltr ombopag therapy, use of Dimension [place] TBIL is not recommended. Chloride [Moles/Vol] 105 mmol/L 98-107 [facility] Cholesterol [Mass/Vol] 198 mg/dL <200 [facility] Comment on above: <200 mg/dL Desirable 200-240 mg/dL Borderline >240 mg/dL High Risk Eosinophils/100 WBC (Bld) 2.8 % 0-5 [facility] Glucose [Mass/Vol] 385 mg/dL 74-106 [facility] Comment on above: Glucose result great er than or equal to 200 mg/dLsuggests DIABETES MELLITUS per A.D.A. criteria. Neutrophils (Bld) [#/Vol] 3.5 10*3/uL 2.0-7.7 [facility] Neutrophils/100 WBC (Bld) 46.3 % 47-70 [facility] Potassium [Moles/Vol] 3.5 mmol/L 3.5-5.1 [facility] Protein [Mass/Vol] 7.7 g/dL 6.4-8.2 [facility] Sodium [Moles/Vol] 135 mmol/L 136-145 [facility] Triglyceride [Mass/Vol] 93 mg/dL <199 [facility] Comment on above: The drugs N-Acetylcy steine and Metamizole may falsely depress this assay.Serum Triglycerides Reference Interval Normal <150 mg/dL Borderline high 150 - 199 mg/dL High 200 - 499 mg/dL Very High > or = 500 mg/dL WBC (Bld) [#/Vol] 7.6 10*3/uL 4.4-11.0 [facility] Blood erythrocytes count (nu mber/volume)Ordered By: Candelario Santana on 06-15-2023 RBC (Bld) [#/Vol] 3.94 10*6/uL 4.2-5.4 [facility] Blood hemoglobin measurement (mass/volume)Ordered By: Candelario Santana on 06-15-2023 Hemoglobin (Bld) [Mass/Vol] 12.0 g/dL 12.0-15.0 [facility] Blood lymphocytes/100 leukoc ytesOrdered By: Candelario Santana on 06-15-2023 Lymphocytes/100 WBC (Bld) 39.7 % 19-41 [facility] Blood monocytes/100 leukocyt esOrdered By: Candelario Santana on 06-15-2023 Monocytes/100 WBC (Bld) 10.2 % 0-10 [facility] Blood platelet mean volumeOr dered By: Candelario Santana on 06-15-2023 Platelet mean volume (Bld) [Entitic vol] 10.2 fL 6.2-12.0 [facility] Determination of erythrocyte mean corpuscular volume (MCV)Ordered By: Candelario Santana on 06-15-2023 MCV (RBC) [Entitic vol] 87.6 fL 81-99 [facility] Hematocrit Auto (Bld) [Volum e fraction][facility] Hematocrit (Bld) [Volume fraction] 34.5 % 37-47 [facility] Laboratory - Chemistry and C hemistry - challengeOrdered By: Candelario Santana on 06-15-2023 ALP [Catalytic activity/Vol] 99 U/L 45-117 [facility] ALT [Catalytic activity/Vol] 18 U/L 13-56 [facility] CO2 [Moles/Vol] 18.0 mmol/L 21.0-32.0 [facility] Globulin (S) [Mass/Vol] 4.6 g/dL 2.2-4.2 [facility] Urea nitrogen/Creatinine [Mass ratio] 13.8 mg/mg 10-20 [facility] Laboratory - Hematology and Cell countsOrdered By: Candelario Santana on 06-15-2023 Erythrocyte distribution width (RBC) [Entitic vol] 42.4 fL 35.1-43.9 [facility] Erythrocyte distribution width (RBC) [Ratio] 13.2 % 11.6-14.6 [facility] Immature granulocytes/100 WBC (Bld) 0.300 % 0.0-0.9 [facility] Comment on above: IG% - Immature Granu locytes (promyelocytes, myelocytes and metamyelocytes) > 1% indicates that a LEFT SHIFT is Present. MCH (RBC) [Entitic mass] 30.5 pg 27.0-32.0 [facility] Nucleated RBC/100 WBC (Bld) [Ratio] 0 % 0-5 [facility] MCHC Auto (RBC) [Mass/Vol]Or dered By: Candelario Santana on 06-15-2023 MCHC (RBC) [Mass/Vol] 34.8 g/dL 32-36 [facility] No Panel InformationOrdered By: Candelario Santana on 06-15-2023 Estimated GFR (MDRD) Amer 90 mL/min >60 [facility] Comment on above: GFR Calc Estimated GFR (MDRD) Non-Af Amer 74 mL/min >60 [facility] Comment on above: Non- GFR Calc Thyroid Stimulating Hormone (TSH) 5.09 uIU/mL 0.358-3.74 [facility] Vitamin D 25-Hydroxy 27.0 ng/mL [facility] Comment on above: Vitamin D 25(OH) Sta tus Range Deficiency <20 ng/mL (50nmol/L) Insufficiency 20 - 30 ng/mL (50 - 75 nmol/L) Sufficiency 30 - 100 ng/mL (75 - 250 nmol/L) Toxicity >100 ng/mL (>250 nmol/L) Platelets bldOrdered By: Candelario Santana on 06-15-2023 Platelets (Bld) [#/Vol] 223 10*3/uL 150-450 [facility] Serum or plasma albumin sabino urement (mass/volume)Ordered By: Candelario Santana on 06-15-2023 Albumin [Mass/Vol] 3.1 g/dL 3.2-5.0 [facility] Serum or plasma albumin/glob ulin mass ratioOrdered By: Candelario Santana on 06-15-2023 Albumin/Globulin [Mass ratio] 0.7 {ratio} 0.9-2.4 [facility] Serum or plasma calcium sabino urement (mass/volume)Ordered By: Candelario Santana on 06-15-2023 Calcium [Mass/Vol] 8.3 mg/dL 8.5-10.1 [facility] Serum or plasma cholesterol in HDL measurement (mass/volume)Ordered By: Candelario Santana on 06-15-2023 Cholesterol in HDL [Mass/Vol] 54 mg/dL >40 [facility] Comment on above: The drugs N-Acetylcy steine and Metamizole may falsely depress this assay. Reference Range HDL <40 mg/dL Low HDL Cholesterol HDL >or= 60 mg/dL High HDL Cholesterol Serum or plasma cholesterol in VLDL measurement (mass/volume)Ordered By: Candelario Santana on 06-15-2023 Cholesterol in VLDL [Mass/Vol] 19 mg/dL 5-40 [facility] Serum or plasma creatinine m easurement (mass/volume)Ordered By: Candelario Santana on 06-15-2023 Creatinine [Mass/Vol] 0.80 mg/dL 0.55-1.02 [facility] Comment on above: The validity of the calculated GFR & GFRAA in patients over 70 years has not been determined. Clinical correlation is essential. Serum or plasma low density lipoprotein (LDL) cholesterol measurement (mass/volume)Ordered By: Candelario Santana on 06-15-2023 Cholesterol in LDL [Mass/Vol] 125 mg/dL 0-130 [facility] Serum or plasma urea nitroge n measurement (mass/volume)Ordered By: Candelario Santana 06-15-2023 Urea nitrogen [Mass/Vol] 11 mg/dL 7-18 [facility] Thin prep Papanicolaou smear with manual screeningOrdered By: Candelario Santana 06-15-2023 Thin prep Papanicolaou smear with manual screening 21 U/L 15-37 [facility] Thin prep Papanicolaou smear with manual screening 12 5-15 [facility] Absolute lymphocyte countOrd ered By: Candelario Santana on 03-17-2023 Lymphocytes Auto (Unsp spec) [#/Vol] 2.32 10*3/uL 0.83-4.51 [facility] Basophil percentageOrdered B y: Candelario Santana on 03-17-2023 Basophils/100 WBC (Bld) 0.7 % 0-1 [facility] Bilirubin [Mass/Vol] 1.50 mg/dL 0.20-1.00 [facility] Comment on above: For patients on eltr ombopag therapy, use of Dimension [place] TBIL is not recommended. Chloride [Moles/Vol] 104 mmol/L 98-107 [facility] Cholesterol [Mass/Vol] 163 mg/dL <200 [facility] Comment on above: <200 mg/dL Desirable 200-240 mg/dL Borderline >240 mg/dL High Risk Eosinophils/100 WBC (Bld) 2.2 % 0-5 [facility] Glucose [Mass/Vol] 289 mg/dL 74-106 [facility] Comment on above: Glucose result great er than or equal to 200 mg/dLsuggests DIABETES MELLITUS per A.D.A. criteria. Neutrophils (Bld) [#/Vol] 2.9 10*3/uL 2.0-7.7 [facility] Neutrophils/100 WBC (Bld) 48.9 % 47-70 [facility] Potassium [Moles/Vol] 4.2 mmol/L 3.5-5.1 [facility] Protein [Mass/Vol] 7.4 g/dL 6.4-8.2 [facility] Sodium [Moles/Vol] 134 mmol/L 136-145 [facility] Triglyceride [Mass/Vol] 102 mg/dL <199 [facility] Comment on above: The drugs N-Acetylcy steine and Metamizole may falsely depress this assay.Serum Triglycerides Reference Interval Normal <150 mg/dL Borderline high 150 - 199 mg/dL High 200 - 499 mg/dL Very High > or = 500 mg/dL WBC (Bld) [#/Vol] 6.0 10*3/uL 4.4-11.0 [facility] Blood erythrocytes count (nu mber/volume)Ordered By: Candelario Santana on 03-17-2023 RBC (Bld) [#/Vol] 3.78 10*6/uL 4.2-5.4 [facility] Blood hemoglobin measurement (mass/volume)Ordered By: Candelario Santana on 03-17-2023 Hemoglobin (Bld) [Mass/Vol] 11.5 g/dL 12.0-15.0 [facility] Blood lymphocytes/100 leukoc ytesOrdered By: Candelario Santana on 03-17-2023 Lymphocytes/100 WBC (Bld) 38.7 % 19-41 [facility] Blood monocytes/100 leukocyt esOrdered By: Candelario Santana on 03-17-2023 Monocytes/100 WBC (Bld) 9.0 % 0-10 [facility] Blood platelet mean volumeOr dered By: Candelario Santana on 03-17-2023 Platelet mean volume (Bld) [Entitic vol] 10.3 fL 6.2-12.0 [facility] Determination of erythrocyte mean corpuscular volume (MCV)Ordered By: Candelario Santana on 03-17-2023 MCV (RBC) [Entitic vol] 93.1 fL 81-99 [facility] Hematocrit Auto (Bld) [Volum e fraction]Ordered By: Candelario Santana on 03-17-2023 Hematocrit (Bld) [Volume fraction] 35.2 % 37-47 [facility] Laboratory - Chemistry and C hemistry - challengeOrdered By: Candelario Santana on 03-17-2023 ALP [Catalytic activity/Vol] 162 U/L 45-117 [facility] ALT [Catalytic activity/Vol] 48 U/L 13-56 [facility] CO2 [Moles/Vol] 22.0 mmol/L 21.0-32.0 [facility] Globulin (S) [Mass/Vol] 4.4 g/dL 2.2-4.2 [facility] Urea nitrogen/Creatinine [Mass ratio] 10.3 mg/mg 10-20 [facility] Laboratory - Hematology and Cell countsOrdered By: Candelario Santana 03-17-2023 Erythrocyte distribution width (RBC) [Entitic vol] 46.0 fL 35.1-43.9 [facility] Erythrocyte distribution width (RBC) [Ratio] 13.5 % 11.6-14.6 [facility] Immature granulocytes/100 WBC (Bld) 0.500 % 0.0-0.9 [facility] Comment on above: IG% - Immature Granu locytes (promyelocytes, myelocytes and metamyelocytes) > 1% indicates that a LEFT SHIFT is Present. MCH (RBC) [Entitic mass] 30.4 pg 27.0-32.0 [facility] Nucleated RBC/100 WBC (Bld) [Ratio] 0 % 0-5 [facility] MCHC Auto (RBC) [Mass/Vol]Or dered By: Candelario Santana on 03-17-2023 MCHC (RBC) [Mass/Vol] 32.7 g/dL 32-36 [facility] No Panel InformationOrdered By: Candelario Santana on 03-17-2023 Estimated GFR (MDRD) Amer 93 mL/min >60 [facility] Comment on above: GFR Calc Estimated GFR (MDRD) Non-Af Amer 77 mL/min >60 [facility] Comment on above: Non- GFR Calc Thyroid Stimulating Hormone (TSH) 3.35 uIU/mL 0.358-3.74 [facility] Vitamin D 25-Hydroxy 21.8 ng/mL [facility] Comment on above: Vitamin D 25(OH) Sta tus Range Deficiency <20 ng/mL (50nmol/L) Insufficiency 20 - 30 ng/mL (50 - 75 nmol/L) Sufficiency 30 - 100 ng/mL (75 - 250 nmol/L) Toxicity >100 ng/mL (>250 nmol/L) Platelets bldOrdered By: Candelario Santana on 03-17-2023 Platelets (Bld) [#/Vol] 252 10*3/uL 150-450 [facility] Serum or plasma albumin sabino urement (mass/volume)Ordered By: Candelario Santana on 03-17-2023 Albumin [Mass/Vol] 3.0 g/dL 3.2-5.0 [facility] Serum or plasma albumin/glob ulin mass ratioOrdered By: Candelario Santana 03-17-2023 Albumin/Globulin [Mass ratio] 0.7 {ratio} 0.9-2.4 [facility] Serum or plasma calcium sabino urement (mass/volume)Ordered By: Candelario Santana 03-17-2023 Calcium [Mass/Vol] 8.8 mg/dL 8.5-10.1 [facility] Serum or plasma cholesterol in HDL measurement (mass/volume)Ordered By: Candelario Santana on 03-17-2023 Cholesterol in HDL [Mass/Vol] 36 mg/dL >40 [facility] Comment on above: The drugs N-Acetylcy steine and Metamizole may falsely depress this assay. Reference Range HDL <40 mg/dL Low HDL Cholesterol HDL >or= 60 mg/dL High HDL Cholesterol Serum or plasma cholesterol in VLDL measurement (mass/volume)Ordered By: Candelario Santana on 03-17-2023 Cholesterol in VLDL [Mass/Vol] 20 mg/dL 5-40 [facility] Serum or plasma creatinine m easurement (mass/volume)Ordered By: Candelario Santana on 03-17-2023 Creatinine [Mass/Vol] 0.77 mg/dL 0.55-1.02 [facility] Comment on above: The validity of the calculated GFR & GFRAA in patients over 70 years has not been determined. Clinical correlation is essential. Serum or plasma low density lipoprotein (LDL) cholesterol measurement (mass/volume)Ordered By: Candelario Santana on 03-17-2023 Cholesterol in LDL [Mass/Vol] 107 mg/dL 0-130 [facility] Serum or plasma urea nitroge n measurement (mass/volume)Ordered By: Candelario Santana on 03-17-2023 Urea nitrogen [Mass/Vol] 8 mg/dL 7-18 [facility] Thin prep Papanicolaou smear with manual screeningOrdered By: Candelario Santana on 03-17-2023 Thin prep Papanicolaou smear with manual screening 41 U/L 15-37 [facility] Thin prep Papanicolaou smear with manual screening 8 5-15 [facility] Absolute lymphocyte countOrd ered By: Dr. Santana on 12-21-2022 Lymphocytes Auto (Unsp spec) [#/Vol] 2.70 10*3/uL 0.83-4.51 [facility] Basophil percentageOrdered B y: Dr. Santana on 12-21-2022 Basophils/100 WBC (Bld) 0.7 % 0-1 [facility] Eosinophils/100 WBC (Bld) 3.6 % 0-5 [facility] Neutrophils (Bld) [#/Vol] 3.4 10*3/uL 2.0-7.7 [facility] Neutrophils/100 WBC (Bld) 46.8 % 47-70 [facility] WBC (Bld) [#/Vol] 7.3 10*3/uL 4.4-11.0 [facility] Blood erythrocytes count (nu mber/volume)Ordered By: Dr. Santana on 12-21-2022 RBC (Bld) [#/Vol] 3.57 10*6/uL 4.2-5.4 [facility] Blood hemoglobin measurement (mass/volume)Ordered By: Dr. Santana on 12-21-2022 Hemoglobin (Bld) [Mass/Vol] 11.0 g/dL 12.0-15.0 [facility] Blood lymphocytes/100 leukoc ytesOrdered By: Dr. Santana on 12-21-2022 Lymphocytes/100 WBC (Bld) 36.9 % 19-41 [facility] Blood monocytes/100 leukocyt esOrdered By: Dr. Santana on 12-21-2022 Monocytes/100 WBC (Bld) 11.7 % 0-10 [facility] Blood platelet mean volumeOr dered By: Dr. Santana on 12-21-2022 Platelet mean volume (Bld) [Entitic vol] 9.7 fL 6.2-12.0 [facility] Determination of erythrocyte mean corpuscular volume (MCV)Ordered By: Dr. Santana on 12-21-2022 MCV (RBC) [Entitic vol] 92.4 fL 81-99 [facility] Hematocrit Auto (Bld) [Volum e fraction]Ordered By: Dr. Santana on 12-21-2022 Hematocrit (Bld) [Volume fraction] 33.0 % 37-47 [facility] Hemoglobin in reticulocytes (mass per reticulocyte)Ordered By: Dr. Santana on 12-21-2022 Hemoglobin (Reticulocytes) [Entitic mass] 34.2 pg 30-35 [facility] Iron measurement (mass/mass) Ordered By: Dr. Santana on 12-21-2022 Iron (Unsp spec) [Mass/Mass] 61 ug/dL 50-170 [facility] Laboratory - Chemistry and C hemistry - challengeOrdered By: Dr. Santana on 12-21-2022 Cobalamin (Vitamin B12) [Mass/Vol] 312 pg/mL 211-911 [facility] Laboratory - Hematology and Cell countsOrdered By: Dr. Santana on 12-21-2022 Erythrocyte distribution width (RBC) [Entitic vol] 46.0 fL 35.1-43.9 [facility] Erythrocyte distribution width (RBC) [Ratio] 13.5 % 11.6-14.6 [facility] Immature granulocytes/100 WBC (Bld) 0.300 % 0.0-0.9 [facility] Comment on above: IG% - Immature Granu locytes (promyelocytes, myelocytes and metamyelocytes) > 1% indicates that a LEFT SHIFT is Present. MCH (RBC) [Entitic mass] 30.8 pg 27.0-32.0 [facility] Nucleated RBC/100 WBC (Bld) [Ratio] 0 % 0-5 [facility] MCHC Auto (RBC) [Mass/Vol]Or dered By: Dr. Santana on 12-21-2022 MCHC (RBC) [Mass/Vol] 33.3 g/dL 32-36 [facility] No Panel InformationOrdered By: Dr. Santana on 12-21-2022 Immature Reticulocyte Fraction 6.10 % 3.00-15.90 [facility] Reticulocyte Count 1.63 % 0.5-1.5 [facility] Total Iron Binding Capacity 295 ug/dL 250-450 [facility] Platelets bldOrdered By: Dr. Santana on 12-21-2022 Platelets (Bld) [#/Vol] 234 10*3/uL 150-450 [facility] Serum or plasma ferritin uzma surement (mass/volume)Ordered By: Dr. Santana on 12-21-2022 Ferritin [Mass/Vol] 32 ng/mL 8-252 [facility] Serum or plasma folate measu rement (mass/volume)Ordered By: Dr. Santana on 12-21-2022 Folate [Mass/Vol] 18.50 ng/mL 3.1-55.4 [facility] Serum or plasma iron saturat ion measurement (mass fraction)Ordered By: Dr. Santana on 12-21-2022 Iron saturation [Mass fraction] 20.7 % 15.0-55.0 [facility] Absolute lymphocyte countOrd ered By: Dr. Santana on 12-16-2022 Lymphocytes Auto (Unsp spec) [#/Vol] 2.52 10*3/uL 0.83-4.51 [facility] Basophil percentageOrdered B y: Dr. Santana on 12-16-2022 Basophils/100 WBC (Bld) 0.6 % 0-1 [facility] Bilirubin [Mass/Vol] 0.90 mg/dL 0.20-1.00 [facility] Comment on above: For patients on eltr ombopag therapy, use of Dimension [place] TBIL is not recommended. Chloride [Moles/Vol] 107 mmol/L 98-107 [facility] Cholesterol [Mass/Vol] 191 mg/dL <200 [facility] Comment on above: <200 mg/dL Desirable 200-240 mg/dL Borderline >240 mg/dL High Risk Eosinophils/100 WBC (Bld) 4.2 % 0-5 [facility] Glucose [Mass/Vol] 202 mg/dL 74-106 [facility] Comment on above: Glucose result great er than or equal to 200 mg/dLsuggests DIABETES MELLITUS per A.D.A. criteria. Neutrophils (Bld) [#/Vol] 2.7 10*3/uL 2.0-7.7 [facility] Neutrophils/100 WBC (Bld) 43.9 % 47-70 [facility] Potassium [Moles/Vol] 3.9 mmol/L 3.5-5.1 [facility] Protein [Mass/Vol] 7.6 g/dL 6.4-8.2 [facility] Sodium [Moles/Vol] 134 mmol/L 136-145 [facility] Triglyceride [Mass/Vol] 96 mg/dL <199 [facility] Comment on above: The drugs N-Acetylcy steine and Metamizole may falsely depress this assay.Serum Triglycerides Reference Interval Normal <150 mg/dL Borderline high 150 - 199 mg/dL High 200 - 499 mg/dL Very High > or = 500 mg/dL WBC (Bld) [#/Vol] 6.2 10*3/uL 4.4-11.0 [facility] Blood erythrocytes count (nu mber/volume)Ordered By: Dr. Santana on 12-16-2022 RBC (Bld) [#/Vol] 3.36 10*6/uL 4.2-5.4 [facility] Blood hemoglobin measurement (mass/volume)Ordered By: Dr. Santana on 12-16-2022 Hemoglobin (Bld) [Mass/Vol] 10.4 g/dL 12.0-15.0 [facility] Blood lymphocytes/100 leukoc ytesOrdered By: Dr. Santana on 12-16-2022 Lymphocytes/100 WBC (Bld) 40.4 % 19-41 [facility] Blood monocytes/100 leukocyt esOrdered By: Dr. Santana on 12-16-2022 Monocytes/100 WBC (Bld) 10.7 % 0-10 [facility] Blood platelet mean volumeOr dered By: Dr. Santana on 12-16-2022 Platelet mean volume (Bld) [Entitic vol] 9.8 fL 6.2-12.0 [facility] Determination of erythrocyte mean corpuscular volume (MCV)Ordered By: Dr. Santana on 12-16-2022 MCV (RBC) [Entitic vol] 90.2 fL 81-99 [facility] Hematocrit Auto (Bld) [Volum e fraction]Ordered By: Dr. Santana on 12-16-2022 Hematocrit (Bld) [Volume fraction] 30.3 % 37-47 [facility] Laboratory - Chemistry and C hemistry - challengeOrdered By: Dr. Santana on 12-16-2022 ALP [Catalytic activity/Vol] 66 U/L 45-117 [facility] ALT [Catalytic activity/Vol] 17 U/L 13-56 [facility] CO2 [Moles/Vol] 22.0 mmol/L 21.0-32.0 [facility] Globulin (S) [Mass/Vol] 4.4 g/dL 2.2-4.2 [facility] Urea nitrogen/Creatinine [Mass ratio] 12.8 mg/mg 10-20 [facility] Laboratory - Hematology and Cell countsOrdered By: Dr. Santana on 12-16-2022 Erythrocyte distribution width (RBC) [Entitic vol] 44.2 fL 35.1-43.9 [facility] Erythrocyte distribution width (RBC) [Ratio] 13.6 % 11.6-14.6 [facility] Immature granulocytes/100 WBC (Bld) 0.200 % 0.0-0.9 [facility] Comment on above: IG% - Immature Granu locytes (promyelocytes, myelocytes and metamyelocytes) > 1% indicates that a LEFT SHIFT is Present. MCH (RBC) [Entitic mass] 31.0 pg 27.0-32.0 [facility] Nucleated RBC/100 [facility] (Bld) [[facility]] 0 [facility] [Mass/Vol]Or dered By: Dr. Santana on 12-16-2022 MCHC (RBC) [Mass/Vol] 34.3 g/dL 32-36 [facility] No Panel InformationOrdered By: Dr. Santana on 12-16-2022 Estimated GFR (MDRD) Amer 92 mL/min >60 [facility] Comment on above: GFR Calc Estimated GFR (MDRD) Non-Af Amer 76 mL/min >60 [facility] Comment on above: Non- GFR Calc Thyroid Stimulating Hormone (TSH) 0.64 uIU/mL 0.358-3.74 [facility] Vitamin D 25-Hydroxy 37.9 ng/mL [facility] Comment on above: Vitamin D 25(OH) Sta tus Range Deficiency <20 ng/mL (50nmol/L) Insufficiency 20 - 30 ng/mL (50 - 75 nmol/L) Sufficiency 30 - 100 ng/mL (75 - 250 nmol/L) Toxicity >100 ng/mL (>250 nmol/L) Platelets bldOrdered By: Dr. Santana on 12-16-2022 Platelets (Bld) [#/Vol] 212 10*3/uL 150-450 [facility] Serum or plasma albumin sabino urement (mass/volume)Ordered By: Dr. Santana on 12-16-2022 Albumin [Mass/Vol] 3.2 g/dL 3.2-5.0 [facility] Serum or plasma albumin/glob ulin mass ratioOrdered By: Dr. Santana on 12-16-2022 Albumin/Globulin [Mass ratio] 0.7 {ratio} 0.9-2.4 [facility] Serum or plasma calcium sabino urement (mass/volume)Ordered By: Dr. Santana on 12-16-2022 Calcium [Mass/Vol] 8.7 mg/dL 8.5-10.1 [facility] Serum or plasma cholesterol in HDL measurement (mass/volume)Ordered By: Dr. Santana on 12-16-2022 Cholesterol in HDL [Mass/Vol] 50 mg/dL >40 [facility] Comment on above: The drugs N-Acetylcy steine and Metamizole may falsely depress this assay. Reference Range HDL <40 mg/dL Low HDL Cholesterol HDL >or= 60 mg/dL High HDL Cholesterol Serum or plasma cholesterol in VLDL measurement (mass/volume)Ordered By: Dr. Santana on 12-16-2022 Cholesterol in VLDL [Mass/Vol] 19 mg/dL 5-40 [facility] Serum or plasma creatinine m easurement (mass/volume)Ordered By: Dr. Santana on 12-16-2022 Creatinine [Mass/Vol] 0.78 mg/dL 0.55-1.02 [facility] Comment on above: The validity of the calculated GFR & GFRAA in patients over 70 years has not been determined. Clinical correlation is essential. Serum or plasma low density lipoprotein (LDL) cholesterol measurement (mass/volume)Ordered By: Dr. Santana on 12-16-2022 Cholesterol in LDL [Mass/Vol] 122 mg/dL 0-130 [facility] Serum or plasma urea nitroge n measurement (mass/volume)Ordered By: Dr. Santana on 12-16-2022 Urea nitrogen [Mass/Vol] 10 mg/dL 7-18 [facility] Thin prep Papanicolaou smear with manual screeningOrdered By: Dr. Santana on 12-16-2022 Thin prep Papanicolaou smear with manual screening 25 U/L 15-37 [facility] Thin prep Papanicolaou smear with manual screening 5 5-15 [facility] Glucose Glucometer (BldC) [M ass/Vol]Ordered By: Antony Tran on 11-24-2022 Glucose [Mass/Vol] 182 mg/dL 74-106 [facility] Comment on above: MANAGEMENT OF PATIEN T CARE PER NURSING PROTOCOL Absolute lymphocyte countOrd ered By: Candelario Santana on 09-16-2022 Lymphocytes Auto (Unsp spec) [#/Vol] 2.69 10*3/uL 0.83-4.51 [facility] Basophil percentageOrdered B y: Candelario Santana on 09-16-2022 Basophils/100 WBC (Bld) 0.5 % 0-1 [facility] Bilirubin [Mass/Vol] 1.10 mg/dL 0.20-1.00 [facility] Comment on above: For patients on eltr ombopag therapy, use of Dimension [place] TBIL is not recommended. Chloride [Moles/Vol] 100 mmol/L 98-107 [facility] Cholesterol [Mass/Vol] 179 mg/dL <200 [facility] Comment on above: <200 mg/dL Desirable 200-240 mg/dL Borderline >240 mg/dL High Risk Eosinophils/100 WBC (Bld) 2.7 % 0-5 [facility] Glucose [Mass/Vol] 374 mg/dL 74-106 [facility] Comment on above: Glucose result great er than or equal to 200 mg/dLsuggests DIABETES MELLITUS per A.D.A. criteria. Neutrophils (Bld) [#/Vol] 3.8 10*3/uL 2.0-7.7 [facility] Neutrophils/100 WBC (Bld) 50.5 % 47-70 [facility] Potassium [Moles/Vol] 3.5 mmol/L 3.5-5.1 [facility] Protein [Mass/Vol] 7.4 g/dL 6.4-8.2 [facility] Sodium [Moles/Vol] 135 mmol/L 136-145 [facility] Triglyceride [Mass/Vol] 89 mg/dL <199 [facility] Comment on above: The drugs N-Acetylcy steine and Metamizole may falsely depress this assay.Serum Triglycerides Reference Interval Normal <150 mg/dL Borderline high 150 - 199 mg/dL High 200 - 499 mg/dL Very High > or = 500 mg/dL WBC (Bld) [#/Vol] 7.5 10*3/uL 4.4-11.0 [facility] Blood erythrocytes count (nu mber/volume)Ordered By: Candelario Santana on 09-16-2022 RBC (Bld) [#/Vol] 3.82 10*6/uL 4.2-5.4 [facility] Blood hemoglobin measurement (mass/volume)Ordered By: Candelario Santana on 09-16-2022 Hemoglobin (Bld) [Mass/Vol] 11.5 g/dL 12.0-15.0 [facility] Blood lymphocytes/100 leukoc ytesOrdered By: Candelario Santana on 09-16-2022 Lymphocytes/100 WBC (Bld) 36.1 % 19-41 [facility] Blood monocytes/100 leukocyt esOrdered By: Candelario Santana on 09-16-2022 Monocytes/100 WBC (Bld) 9.8 % 0-10 [facility] Blood platelet mean volumeOr dered By: Candelario Santana on 09-16-2022 Platelet mean volume (Bld) [Entitic vol] 10.4 fL 6.2-12.0 [facility] Determination of erythrocyte mean corpuscular volume (MCV)Ordered By: Candelario Santana on 09-16-2022 MCV (RBC) [Entitic vol] 86.4 fL 81-99 [facility] Hematocrit Auto (Bld) [Volum e fraction]Ordered By: Candelario Santana on 09-16-2022 Hematocrit (Bld) [Volume fraction] 33.0 % 37-47 [facility] Laboratory - Chemistry and C hemistry - challengeOrdered By: Candelario Santana on 09-16-2022 ALP [Catalytic activity/Vol] 81 U/L 45-117 [facility] ALT [Catalytic activity/Vol] 19 U/L 13-56 [facility] CO2 [Moles/Vol] 23.0 mmol/L 21.0-32.0 [facility] Globulin (S) [Mass/Vol] 4.4 g/dL 2.2-4.2 [facility] Urea nitrogen/Creatinine [Mass ratio] 16.9 mg/mg 10-20 [facility] Laboratory - Hematology and Cell countsOrdered By: Candelario Santana on 09-16-2022 Erythrocyte distribution width (RBC) [Entitic vol] 40.5 fL 35.1-43.9 [facility] Erythrocyte distribution width (RBC) [Ratio] 13.2 % 11.6-14.6 [facility] Immature granulocytes/100 WBC (Bld) 0.400 % 0.0-0.9 [facility] Comment on above: IG% - Immature Granu locytes (promyelocytes, myelocytes and metamyelocytes) > 1% indicates that a LEFT SHIFT is Present. MCH (RBC) [Entitic mass] 30.1 pg 27.0-32.0 [facility] Nucleated RBC/100 WBC (Bld) [Ratio] 0 % 0-5 [facility] MCHC Auto (RBC) [Mass/Vol]Or dered By: Candelario Santana on 09-16-2022 MCHC (RBC) [Mass/Vol] 34.8 g/dL 32-36 [facility] No Panel InformationOrdered By: Candealrio Santana on 09-16-2022 Estimated GFR (MDRD) Amer 87 mL/min >60 [facility] Comment on above: GFR Calc Estimated GFR (MDRD) Non-Af Amer 72 mL/min >60 [facility] Comment on above: Non- GFR Calc Thyroid Stimulating Hormone (TSH) 4.20 uIU/mL 0.358-3.74 [facility] Vitamin D 25-Hydroxy 26.7 ng/mL [facility] Comment on above: Vitamin D 25(OH) Sta tus Range Deficiency <20 ng/mL (50nmol/L) Insufficiency 20 - 30 ng/mL (50 - 75 nmol/L) Sufficiency 30 - 100 ng/mL (75 - 250 nmol/L) Toxicity >100 ng/mL (>250 nmol/L) Platelets bldOrdered By: Candelario Santana on 09-16-2022 Platelets (Bld) [#/Vol] 213 10*3/uL 150-450 [facility] Serum or plasma albumin sabino urement (mass/volume)Ordered By: Candelario Santana on 09-16-2022 Albumin [Mass/Vol] 3.0 g/dL 3.2-5.0 [facility] Serum or plasma albumin/glob ulin mass ratioOrdered By: Candelario Santana on 09-16-2022 Albumin/Globulin [Mass ratio] 0.7 {ratio} 0.9-2.4 [facility] Serum or plasma calcium sabino urement (mass/volume)Ordered By: Candelario Santana on 09-16-2022 Calcium [Mass/Vol] 9.2 mg/dL 8.5-10.1 [facility] Serum or plasma cholesterol in HDL measurement (mass/volume)Ordered By: Candelario Santana on 09-16-2022 Cholesterol in HDL [Mass/Vol] 58 mg/dL >40 [facility] Comment on above: The drugs N-Acetylcy steine and Metamizole may falsely depress this assay. Reference Range HDL <40 mg/dL Low HDL Cholesterol HDL >or= 60 mg/dL High HDL Cholesterol Serum or plasma cholesterol in VLDL measurement (mass/volume)Ordered By: Candelario Santana on 09-16-2022 Cholesterol in VLDL [Mass/Vol] 18 mg/dL 5-40 [facility] Serum or plasma creatinine m easurement (mass/volume)Ordered By: Candelario Santana on 09-16-2022 Creatinine [Mass/Vol] 0.83 mg/dL 0.55-1.02 [facility] Comment on above: The validity of the calculated GFR & GFRAA in patients over 70 years has not been determined. Clinical correlation is essential. Serum or plasma low density lipoprotein (LDL) cholesterol measurement (mass/volume)Ordered By: Candelario Santana on 09-16-2022 Cholesterol in LDL [Mass/Vol] 103 mg/dL 0-130 [facility] Serum or plasma urea nitroge n measurement (mass/volume)Ordered By: Candelario Santana on 09-16-2022 Urea nitrogen [Mass/Vol] 14 mg/dL 7-18 [facility] Thin prep Papanicolaou smear with manual screeningOrdered By: Candelario Santana on 09-16-2022 Thin prep Papanicolaou smear with manual screening 21 U/L 15-37 [facility] Thin prep Papanicolaou smear with manual screening 12 5-15 [facility] Absolute lymphocyte countOrd ered By: Dr. Santana on 07-08-2022 Lymphocytes Auto (Unsp spec) [#/Vol] 1.66 10*3/uL 0.83-4.51 [facility] Basophil percentageOrdered B y: Dr. Santana on 07-08-2022 Basophils/100 WBC (Bld) 0.8 % 0-1 [facility] Bilirubin [Mass/Vol] 1.20 mg/dL 0.20-1.00 [facility] Comment on above: For patients on eltr ombopag therapy, use of Dimension [place] TBIL is not recommended. Chloride [Moles/Vol] 104 mmol/L 98-107 [facility] Cholesterol [Mass/Vol] 176 mg/dL <200 [facility] Comment on above: <200 mg/dL Desirable 200-240 mg/dL Borderline >240 mg/dL High Risk Eosinophils/100 WBC (Bld) 9.7 % 0-5 [facility] Glucose [Mass/Vol] 278 mg/dL 74-106 [facility] Comment on above: Glucose result great er than or equal to 200 mg/dLsuggests DIABETES MELLITUS per A.D.A. criteria. Neutrophils (Bld) [#/Vol] 2.5 10*3/uL 2.0-7.7 [facility] Neutrophils/100 WBC (Bld) 48.1 % 47-70 [facility] Potassium [Moles/Vol] 3.4 mmol/L 3.5-5.1 [facility] Protein [Mass/Vol] 7.4 g/dL 6.4-8.2 [facility] Sodium [Moles/Vol] 138 mmol/L 136-145 [facility] Triglyceride [Mass/Vol] 85 mg/dL <199 [facility] Comment on above: The drugs N-Acetylcy steine and Metamizole may falsely depress this assay.Serum Triglycerides Reference Interval Normal <150 mg/dL Borderline high 150 - 199 mg/dL High 200 - 499 mg/dL Very High > or = 500 mg/dL WBC (Bld) [#/Vol] 5.1 10*3/uL 4.4-11.0 [facility] Blood erythrocytes count (nu mber/volume)Ordered By: Dr. Santana on 07-08-2022 RBC (Bld) [#/Vol] 3.75 10*6/uL 4.2-5.4 [facility] Blood hemoglobin measurement (mass/volume)Ordered By: Dr. Santana on 07-08-2022 Hemoglobin (Bld) [Mass/Vol] 11.6 g/dL 12.0-15.0 [facility] Blood lymphocytes/100 leukoc ytesOrdered By: Dr. Santana on 07-08-2022 Lymphocytes/100 WBC (Bld) 32.4 % 19-41 [facility] Blood monocytes/100 leukocyt esOrdered By: Dr. Santana on 07-08-2022 Monocytes/100 WBC (Bld) 8.8 % 0-10 [facility] Blood platelet mean volumeOr dered By: Dr. Santana on 07-08-2022 Platelet mean volume (Bld) [Entitic vol] 10.3 fL 6.2-12.0 [facility] Determination of erythrocyte mean corpuscular volume (MCV)Ordered By: Dr. Santana on 07-08-2022 MCV (RBC) [Entitic vol] 90.1 fL 81-99 [facility] Hematocrit Auto (Bld) [Volum e fraction]Ordered By: Dr. Santana on 07-08-2022 Hematocrit (Bld) [Volume fraction] 33.8 % 37-47 [facility] Laboratory - Chemistry and C hemistry - challengeOrdered By: Dr. Santana on 07-08-2022 ALP [Catalytic activity/Vol] 99 U/L 45-117 [facility] ALT [Catalytic activity/Vol] 16 U/L 13-56 [facility] CO2 [Moles/Vol] 25.0 mmol/L 21.0-32.0 [facility] Globulin (S) [Mass/Vol] 4.3 g/dL 2.2-4.2 [facility] Urea nitrogen/Creatinine [Mass ratio] 11.6 mg/mg 10-20 [facility] Laboratory - Hematology and Cell countsOrdered By: Dr. Santana on 07-08-2022 Erythrocyte distribution width (RBC) [Entitic vol] 46.6 fL 35.1-43.9 [facility] Erythrocyte distribution width (RBC) [Ratio] 14.4 % 11.6-14.6 [facility] Immature granulocytes/100 WBC (Bld) 0.200 % 0.0-0.9 [facility] Comment on above: IG% - Immature Granu locytes (promyelocytes, myelocytes and metamyelocytes) > 1% indicates that a LEFT SHIFT is Present. MCH (RBC) [Entitic mass] 30.9 pg 27.0-32.0 [facility] Nucleated RBC/100 WBC (Bld) [Ratio] 0 % 0-5 [facility] MCHC Auto (RBC) [Mass/Vol]Or dered By: Dr. Santana on 07-08-2022 MCHC (RBC) [Mass/Vol] 34.3 g/dL 32-36 [facility] No Panel InformationOrdered By: Dr. Santana on 07-08-2022 Estimated GFR (MDRD) Amer 125 mL/min >60 [facility] Comment on above: GFR Calc Estimated GFR (MDRD) Non-Af Amer 103 mL/min >60 [facility] Comment on above: Non- GFR Calc Thyroid Stimulating Hormone (TSH) 5.16 uIU/mL 0.358-3.74 [facility] Vitamin D 25-Hydroxy 26.2 ng/mL [facility] Comment on above: Vitamin D 25(OH) Sta tus Range Deficiency <20 ng/mL (50nmol/L) Insufficiency 20 - 30 ng/mL (50 - 75 nmol/L) Sufficiency 30 - 100 ng/mL (75 - 250 nmol/L) Toxicity >100 ng/mL (>250 nmol/L) Platelets bldOrdered By: Dr. Santana on 07-08-2022 Platelets (Bld) [#/Vol] 171 10*3/uL 150-450 [facility] Serum or plasma albumin sabino urement (mass/volume)Ordered By: Dr. Santana on 07-08-2022 Albumin [Mass/Vol] 3.1 g/dL 3.2-5.0 [facility] Serum or plasma albumin/glob ulin mass ratioOrdered By: Dr. Santana on 07-08-2022 Albumin/Globulin [Mass ratio] 0.7 {ratio} 0.9-2.4 [facility] Serum or plasma calcium sabino urement (mass/volume)Ordered By: Dr. Santana on 07-08-2022 Calcium [Mass/Vol] 8.7 mg/dL 8.5-10.1 [facility] Serum or plasma cholesterol in HDL measurement (mass/volume)Ordered By: Dr. Santana on 07-08-2022 Cholesterol in HDL [Mass/Vol] 50 mg/dL >40 [facility] Comment on above: The drugs N-Acetylcy steine and Metamizole may falsely depress this assay. Reference Range HDL <40 mg/dL Low HDL Cholesterol HDL >or= 60 mg/dL High HDL Cholesterol Serum or plasma cholesterol in VLDL measurement (mass/volume)Ordered By: Dr. Santana on 07-08-2022 Cholesterol in VLDL [Mass/Vol] 17 mg/dL 5-40 [facility] Serum or plasma creatinine m easurement (mass/volume)Ordered By: Dr. Santana on 07-08-2022 Creatinine [Mass/Vol] 0.60 mg/dL 0.55-1.02 [facility] Comment on above: The validity of the calculated GFR & GFRAA in patients over 70 years has not been determined. Clinical correlation is essential. Serum or plasma low density lipoprotein (LDL) cholesterol measurement (mass/volume)Ordered By: Dr. Santana on 07-08-2022 Cholesterol in LDL [Mass/Vol] 109 mg/dL 0-130 [facility] Serum or plasma urea nitroge n measurement (mass/volume)Ordered By: Dr. Santana on 07-08-2022 Urea nitrogen [Mass/Vol] 7 mg/dL 7-18 [facility] Thin prep Papanicolaou smear with manual screeningOrdered By: Dr. Santana on 07-08-2022 Thin prep Papanicolaou smear with manual screening 20 U/L 15-37 [facility] Thin prep Papanicolaou smear with manual screening 9 5-15 [facility] No Panel Informationon 05-25 Thyroid Stimulating Hormone (TSH) 2.85 uIU/mL 0.358-3.74 [facility] Work Phone: Absolute lymphocyte counton 04-09-2022 Lymphocytes Auto (Unsp spec) [#/Vol] 2.49 10*3/uL 0.83-4.51 [facility] Work Phone: Basophil percentageon 2021 Basophils/100 WBC (Bld) 0.3 % 0-1 [facility] Work Phone: Bilirubin [Mass/Vol] 0.90 mg/dL 0.20-1.00 [facility] Work Phone: Comment on above: For patients on eltr ombopag therapy, use of Dimension [place] TBIL is not recommended. Chloride [Moles/Vol] 103 mmol/L 98-107 [facility] Work Phone: Cholesterol [Mass/Vol] 154 mg/dL <200 [facility] Work Phone: Comment on above: <200 mg/dL Desirable 200-240 mg/dL Borderline >240 mg/dL High Risk Eosinophils/100 WBC (Bld) 5.2 % 0-5 [facility] Work Phone: Glucose [Mass/Vol] 337 mg/dL 74-106 [facility] Work Phone: Comment on above: Glucose result great er than or equal to 200 mg/dLsuggests DIABETES MELLITUS per A.D.A. criteria. Neutrophils (Bld) [#/Vol] 2.6 10*3/uL 2.0-7.7 [facility] Work Phone: Neutrophils/100 WBC (Bld) 44.2 % 47-70 [facility] Work Phone: [phone] Potassium [Moles/Vol] 3.9 mmol/L 3.5-5.1 [facility] Work Phone: [phone] Protein [Mass/Vol] 7.1 g/dL 6.4-8.2 [facility] Work Phone: [phone] Sodium [Moles/Vol] 135 mmol/L 136-145 [facility] Work Phone: [phone] Triglyceride [Mass/Vol] 105 mg/dL <199 [facility] Work Phone: [phone] Comment on above: The drugs N-Acetylcy steine and Metamizole may falsely depress this assay.Serum Triglycerides Reference Interval Normal <150 mg/dL Borderline high 150 - 199 mg/dL High 200 - 499 mg/dL Very High > or = 500 mg/dL WBC (Bld) [#/Vol] 6.0 10*3/uL 4.4-11.0 [facility] Work Phone: Blood erythrocytes count (nu mber/volume)on 04-09-2022 RBC (Bld) [#/Vol] 3.33 10*6/uL 4.2-5.4 [facility] Work Phone: [phone] Blood hemoglobin measurement (mass/volume)on 04-09-2022 Hemoglobin (Bld) [Mass/Vol] 10.0 g/dL 12.0-15.0 [facility] Work Phone: Blood lymphocytes/100 leukoc yteson 04-09-2022 Lymphocytes/100 WBC (Bld) 41.8 % 19-41 [facility] Work Phone: Blood monocytes/100 leukocyt eson 04-09-2022 Monocytes/100 WBC (Bld) 8.2 % 0-10 [facility] Work Phone: [phone] Blood platelet mean volumeon 04-09-2022 Platelet mean volume (Bld) [Entitic vol] 10.0 fL 6.2-12.0 [facility] Work Phone: [phone] Determination of erythrocyte mean corpuscular volume (MCV)on 04-09-2022 MCV (RBC) [Entitic vol] 88.9 fL 81-99 [facility] Work Phone: [phone] Hematocrit Auto (Bld) [Volum e fraction]on 04-09-2022 Hematocrit (Bld) [Volume fraction] 29.6 % 37-47 [facility] Work Phone: [phone] Laboratory - Chemistry and C hemistry - challengeon 04-09-2022 ALP [Catalytic activity/Vol] 101 U/L 45-117 [facility] Work Phone: [phone] ALT [Catalytic activity/Vol] 20 U/L 13-56 [facility] Work Phone: [phone] CO2 [Moles/Vol] 24.0 mmol/L 21.0-32.0 [facility] Work Phone: [phone] Globulin (S) [Mass/Vol] 4.4 g/dL 2.2-4.2 [facility] Work Phone: [phone] Urea nitrogen/Creatinine [Mass ratio] 10.9 mg/mg 10-20 [facility] Work Phone: [phone] Laboratory - Hematology and Cell countson 04-09-2022 Erythrocyte distribution width (RBC) [Entitic vol] 43.0 fL 35.1-43.9 [facility] Work Phone: [phone] Erythrocyte distribution width (RBC) [Ratio] 13.3 % 11.6-14.6 [facility] Work Phone: [phone] Immature granulocytes/100 WBC (Bld) 0.300 % 0.0-0.9 [facility] Work Phone: [phone] Comment on above: IG% - Immature Granu locytes (promyelocytes, myelocytes and metamyelocytes) > 1% indicates that a LEFT SHIFT is Present. MCH (RBC) [Entitic mass] 30.0 pg 27.0-32.0 [facility] Work Phone: [phone] Nucleated RBC/100 WBC (Bld) [Ratio] 0 % 0-5 [facility] Work Phone: [phone] MCHC Auto (RBC) [Mass/Vol]on 04-09-2022 MCHC (RBC) [Mass/Vol] 33.8 g/dL 32-36 [facility] Work Phone: [phone] Panel Informationon 04-09 Estimated GFR (MDRD) Amer 99 mL/min >60 [facility] Work Phone: [phone] Comment on above: GFR Calc Estimated GFR (MDRD) Non-Af Amer 82 mL/min >60 [facility] Work Phone: [phone] Comment on above: Non- GFR Calc Thyroid Stimulating Hormone (TSH) 5.32 uIU/mL 0.358-3.74 [facility] Work Phone: [phone] Vitamin D 25-Hydroxy 28.3 ng/mL [facility] Work Phone: [phone] Comment on above: Vitamin D 25(OH) Sta tus Range Deficiency <20 ng/mL (50nmol/L) Insufficiency 20 - 30 ng/mL (50 - 75 nmol/L) Sufficiency 30 - 100 ng/mL (75 - 250 nmol/L) Toxicity >100 ng/mL (>250 nmol/L) Platelets bldon 04-09-2022 Platelets (Bld) [#/Vol] 203 10*3/uL 150-450 [facility] Work Phone: [phone] Serum or plasma albumin sabino urement (mass/volume)on 04-09-2022 Albumin [Mass/Vol] 2.7 g/dL 3.2-5.0 [facility] Work Phone: [phone] Serum or plasma albumin/glob ulin mass ratioon 04-09-2022 Albumin/Globulin [Mass ratio] 0.6 {ratio} 0.9-2.4 [facility] Work Phone: Serum or plasma calcium sabino urement (mass/volume)on 04-09-2022 Calcium [Mass/Vol] 8.7 mg/dL 8.5-10.1 [facility] Work Phone: Serum or plasma cholesterol in HDL measurement (mass/volume)on 04-09-2022 Cholesterol in HDL [Mass/Vol] 43 mg/dL >40 [facility] Work Phone: Comment on above: The drugs N-Acetylcy steine and Metamizole may falsely depress this assay. Reference Range HDL <40 mg/dL Low HDL Cholesterol HDL >or= 60 mg/dL High HDL Cholesterol Serum or plasma cholesterol in VLDL measurement (mass/volume)on 04-09-2022 Cholesterol in VLDL [Mass/Vol] 21 mg/dL 5-40 [facility] Work Phone: [phone] Serum or plasma creatinine m easurement (mass/volume)on 04-09-2022 Creatinine [Mass/Vol] 0.74 mg/dL 0.55-1.02 [facility] Work Phone: Comment on above: The validity of the calculated GFR & GFRAA in patients over 70 years has not been determined. Clinical correlation is essential. Serum or plasma low density lipoprotein (LDL) cholesterol measurement (mass/volume)on 04-09-2022 Cholesterol in LDL [Mass/Vol] 90 mg/dL 0-130 [facility] Work Phone: [phone] Serum or plasma urea nitroge n measurement (mass/volume)on 04-09-2022 Urea nitrogen [Mass/Vol] 8 mg/dL 7-18 [facility] Work Phone: [phone] Thin prep Papanicolaou smear with manual screeningon 04-09-2022 Thin prep Papanicolaou smear with manual screening 22 U/L 15-37 [facility] Work Phone: [phone] Thin prep Papanicolaou smear with manual screening 8 5-15 [facility] Work Phone: [phone] Absolute lymphocyte counton 03-21-2022 Lymphocytes Auto (Unsp spec) [#/Vol] 1.58 10*3/uL 0.83-4.51 [facility] Work Phone: Basophil percentageon 2021 Basophils/100 WBC (Bld) 0.2 % 0-1 [facility] Work Phone: Bilirubin [Mass/Vol] 1.60 mg/dL 0.20-1.00 [facility] Work Phone: Comment on above: For patients on eltr ombopag therapy, use of Dimension [place] TBIL is not recommended. Chloride [Moles/Vol] 108 mmol/L 98-107 [facility] Work Phone: Eosinophils/100 WBC (Bld) 0.0 % 0-5 [facility] Work Phone: Glucose [Mass/Vol] 181 mg/dL 74-106 [facility] Work Phone: Comment on above: Fasting Glucose resu lt greater than or equal to 126 mg/dL suggests DIABETES MELLITUS per A.D.A. criteria. Neutrophils (Bld) [#/Vol] 8.6 10*3/uL 2.0-7.7 [facility] Work Phone: Neutrophils/100 WBC (Bld) 79.8 % 47-70 [facility] Work Phone: Potassium [Moles/Vol] 3.3 mmol/L 3.5-5.1 [facility] Work Phone: Protein [Mass/Vol] 6.4 g/dL 6.4-8.2 [facility] Work Phone: Sodium [Moles/Vol] 136 mmol/L 136-145 [facility] Work Phone: WBC (Bld) [#/Vol] 10.8 10*3/uL 4.4-11.0 [facility] Work Phone: Blood erythrocytes count (nu mber/volume)on 03-21-2022 RBC (Bld) [#/Vol] 3.29 10*6/uL 4.2-5.4 [facility] Work Phone: Blood hemoglobin measurement (mass/volume)on 03-21-2022 Hemoglobin (Bld) [Mass/Vol] 10.1 g/dL 12.0-15.0 [facility] Work Phone: Blood lymphocytes/100 leukoc yteson 03-21-2022 Lymphocytes/100 WBC (Bld) 14.6 % 19-41 [facility] Work Phone: Blood monocytes/100 leukocyt eson 03-21-2022 Monocytes/100 WBC (Bld) 4.4 % 0-10 [facility] Work Phone: Blood platelet mean volumeon 03-21-2022 Platelet mean volume (Bld) [Entitic vol] 9.9 fL 6.2-12.0 [facility] Work Phone: Determination of erythrocyte mean corpuscular volume (MCV)on 03-21-2022 MCV (RBC) [Entitic vol] 89.1 fL 81-99 [facility] Work Phone: Glucose Glucometer (BldC) [M ass/Vol]on 03-21-2022 Glucose [Mass/Vol] 172 mg/dL 74-106 [facility] Work Phone: Comment on above: MANAGEMENT OF PATIEN T CARE PER NURSING PROTOCOL Hematocrit Auto (Bld) [Volum e fraction]on 03-21-2022 Hematocrit (Bld) [Volume fraction] 29.3 % 37-47 [facility] Work Phone: Laboratory - Chemistry and C hemistry - challengeon 03-21-2022 ALP [Catalytic activity/Vol] 215 U/L 45-117 [facility] Work Phone: ALT [Catalytic activity/Vol] 82 U/L 13-56 [facility] Work Phone: [phone] CO2 [Moles/Vol] 22.0 mmol/L 21.0-32.0 [facility] Work Phone: [phone] Globulin (S) [Mass/Vol] 4.2 g/dL 2.2-4.2 [facility] Work Phone: [phone] Lipase [Catalytic activity/Vol] 147 U/L 73-393 [facility] Work Phone: [phone] Urea nitrogen/Creatinine [Mass ratio] 17.3 mg/mg 10-20 [facility] Work Phone: [phone] Laboratory - Hematology and Cell countson 03-21-2022 Erythrocyte distribution width (RBC) [Entitic vol] 43.1 fL 35.1-43.9 [facility] Work Phone: [phone] Erythrocyte distribution width (RBC) [Ratio] 13.2 % 11.6-14.6 [facility] Work Phone: [phone] Immature granulocytes/100 WBC (Bld) 1.000 % 0.0-0.9 [facility] Work Phone: [phone] Comment on above: IG% - Immature Granu locytes (promyelocytes, myelocytes and metamyelocytes) > 1% indicates that a LEFT SHIFT is Present. MCH (RBC) [Entitic mass] 30.7 pg 27.0-32.0 [facility] Work Phone: [phone] Nucleated RBC/100 WBC (Bld) [Ratio] 0 % 0-5 [facility] Work Phone: [phone] MCHC Auto (RBC) [Mass/Vol]on 03-21-2022 MCHC (RBC) [Mass/Vol] 34.5 g/dL 32-36 [facility] Work Phone: No Panel Informationon 03-21 Estimated Creatinine Clearance Calc 37.24 ml/min [facility] Work Phone: [phone] Estimated GFR (MDRD) Amer 131 mL/min >60 [facility] Work Phone: [phone] Comment on above: GFR Calc Estimated GFR (MDRD) Non-Af Amer 108 mL/min >60 [facility] Work Phone: [phone] Comment on above: Non- GFR Calc Platelets bldon 03-21-2022 Platelets (Bld) [#/Vol] 187 10*3/uL 150-450 [facility] Work Phone: Serum or plasma albumin sabino urement (mass/volume)on 03-21-2022 Albumin [Mass/Vol] 2.2 g/dL 3.2-5.0 [facility] Work Phone: Serum or plasma albumin/glob ulin mass ratioon 03-21-2022 Albumin/Globulin [Mass ratio] 0.5 {ratio} 0.9-2.4 [facility] Work Phone: [phone] Serum or plasma calcium sabino urement (mass/volume)on 03-21-2022 Calcium [Mass/Vol] 8.2 mg/dL 8.5-10.1 [facility] Work Phone: [phone] Serum or plasma creatinine m easurement (mass/volume)on 03-21-2022 Creatinine [Mass/Vol] 0.58 mg/dL 0.55-1.02 [facility] Work Phone: Comment on above: The validity of the calculated GFR & GFRAA in patients over 70 years has not been determined. Clinical correlation is essential. Serum or plasma urea nitroge n measurement (mass/volume)on 03-21-2022 Urea nitrogen [Mass/Vol] 10 mg/dL 7-18 [facility] Work Phone: Thin prep Papanicolaou smear with manual screeningon 03-21-2022 Thin prep Papanicolaou smear with manual screening 65 U/L 15-37 [facility] Work Phone: [phone] Thin prep Papanicolaou smear with manual screening 6 5-15 [facility] Work Phone: Absolute lymphocyte counton 03-20-2022 Lymphocytes Auto (Unsp spec) [#/Vol] 1.85 10*3/uL 0.83-4.51 [facility] Work Phone: Basophil percentageon 2021 Basophil percentage >100 SEEN /hpf 0-5 [facility] Work Phone: Basophils/100 WBC (Bld) 0.2 % 0-1 [facility] Work Phone: [phone] Bilirubin [Mass/Vol] 3.90 mg/dL 0.20-1.00 [facility] Work Phone: [phone] Comment on above: For patients on eltr ombopag therapy, use of Dimension [place] TBIL is not recommended. Chloride [Moles/Vol] 102 mmol/L 98-107 [facility] Work Phone: Eosinophils/100 WBC (Bld) 0.6 % 0-5 [facility] Work Phone: [phone] Glucose [Mass/Vol] 192 mg/dL 74-106 [facility] Work Phone: [phone] Comment on above: Fasting Glucose resu lt greater than or equal to 126 mg/dL suggests DIABETES MELLITUS per A.D.A. criteria. Neutrophils (Bld) [#/Vol] 16.2 10*3/uL 2.0-7.7 [facility] Work Phone: [phone] Neutrophils/100 WBC (Bld) 82.7 % 47-70 [facility] Work Phone: [phone] Potassium [Moles/Vol] 3.3 mmol/L 3.5-5.1 [facility] Work Phone: [phone] Comment on above: Slight Hemolysis, Re sult may be falsely increased. Protein [Mass/Vol] 7.3 g/dL 6.4-8.2 [facility] Work Phone: [phone] Sodium [Moles/Vol] 133 mmol/L 136-145 [facility] Work Phone: [phone] WBC (Bld) [#/Vol] 19.5 10*3/uL 4.4-11.0 [facility] Work Phone: [phone] Bilirubin Test strip Ql (U)o n 03-20-2022 Bilirubin Ql (U) 3 mg/dL Negative [facility] Work Phone: [phone] Comment on above: COLOR OF URINE MAY A FFECT DIPSTICK RESULTS. Blood erythrocytes count (nu mber/volume)on 03-20-2022 RBC (Bld) [#/Vol] 3.64 10*6/uL 4.2-5.4 [facility] Work Phone: Blood hemoglobin measurement (mass/volume)on 03-20-2022 Hemoglobin (Bld) [Mass/Vol] 11.6 g/dL 12.0-15.0 [facility] Work Phone: Blood lymphocytes/100 leukoc yteson 03-20-2022 Lymphocytes/100 WBC (Bld) 9.5 % 19-41 [facility] Work Phone: [phone] Blood monocytes/100 leukocyt eson 03-20-2022 Monocytes/100 WBC (Bld) 6.0 % 0-10 [facility] Work Phone: Blood platelet mean volumeon 03-20-2022 Platelet mean volume (Bld) [Entitic vol] 10.6 fL 6.2-12.0 [facility] Work Phone: Blood platelet morphology de termination (nominal result)on 03-20-2022 Platelet morphology finding Nom (Bld) CLUMPED [facility] Work Phone: Determination of erythrocyte mean corpuscular volume (MCV)on 03-20-2022 MCV (RBC) [Entitic vol] 88.7 fL 81-99 [facility] Work Phone: Direct bilirubinon Bilirubin.direct [Mass/Vol] 2.33 mg/dL 0.00-0.30 [facility] Work Phone: [phone] Hematocrit Auto (Bld) [Volum e fraction]on 03-20-2022 Hematocrit (Bld) [Volume fraction] 32.3 % 37-47 [facility] Work Phone: [phone] Ketones Test strip Ql (U)on 03-20-2022 Ketones Ql (U) 15 mg/dl Negative [facility] Work Phone: [phone] Laboratory - Chemistry and C hemistry - challengeon 03-20-2022 ALP [Catalytic activity/Vol] 266 U/L 45-117 [facility] Work Phone: ALT [Catalytic activity/Vol] 108 U/L 13-56 [facility] Work Phone: [phone] CO2 [Moles/Vol] 22.0 mmol/L 21.0-32.0 [facility] Work Phone: [phone] Globulin (S) [Mass/Vol] 4.7 g/dL 2.2-4.2 [facility] Work Phone: [phone] Lipase [Catalytic activity/Vol] 91382 U/L 73-393 [facility] Work Phone: [phone] Magnesium [Mass/Vol] 2.0 mg/dL 1.6-2.6 [facility] Work Phone: [phone] Comment on above: Moderate Hemolysis, Result may be falsely increased. Urea nitrogen/Creatinine [Mass ratio] 30.4 mg/mg 10-20 [facility] Work Phone: [phone] Laboratory - Hematology and Cell countson 03-20-2022 Erythrocyte distribution width (RBC) [Entitic vol] 42.5 fL 35.1-43.9 [facility] Work Phone: [phone] Erythrocyte distribution width (RBC) [Ratio] 13.2 % 11.6-14.6 [facility] Work Phone: [phone] Immature granulocytes/100 WBC (Bld) 1.000 % 0.0-0.9 [facility] Work Phone: [phone] Comment on above: IG% - Immature Granu locytes (promyelocytes, myelocytes and metamyelocytes) > 1% indicates that a LEFT SHIFT is Present. MCH (RBC) [Entitic mass] 31.9 pg 27.0-32.0 [facility] Work Phone: [phone] Nucleated RBC/100 WBC (Bld) [Ratio] 0 % 0-5 [facility] Work Phone: [phone] MCHC Auto (RBC) [Mass/Vol]on 03-20-2022 MCHC (RBC) [Mass/Vol] 35.9 g/dL 32-36 [facility] Work Phone: [phone] Mucus LM Ql (Urine sed)on Mucus Ql (Urine sed) 0 SEEN /hpf [facility] Work Phone: [phone] Nitrite Test strip Ql (U)on 03-20-2022 Nitrite Ql (U) Negative Negative [facility] Work Phone: No Panel Informationon 03-20 Estimated Creatinine Clearance Calc 37.24 ml/min [facility] Work Phone: Estimated GFR (MDRD) Amer 127 mL/min >60 [facility] Work Phone: Comment on above: GFR Calc Estimated GFR (MDRD) Non-Af Amer 105 mL/min >60 [facility] Work Phone: Comment on above: Non- GFR Calc Thyroid Stimulating Hormone (TSH) 7.14 uIU/mL 0.358-3.74 [facility] Work Phone: Platelets bldon 03-20-2022 Platelets (Bld) [#/Vol] 227 10*3/uL 150-450 [facility] Work Phone: Protein Test strip Ql (U)on 03-20-2022 Protein Ql (U) 100 mg/dl Negative [facility] Work Phone: [phone] Serum or plasma albumin sabino urement (mass/volume)on 03-20-2022 Albumin [Mass/Vol] 2.6 g/dL 3.2-5.0 [facility] Work Phone: [phone] Serum or plasma calcium sabino urement (mass/volume)on 03-20-2022 Calcium [Mass/Vol] 9.0 mg/dL 8.5-10.1 [facility] Work Phone: [phone] Serum or plasma creatinine m easurement (mass/volume)on 03-20-2022 Creatinine [Mass/Vol] 0.59 mg/dL 0.55-1.02 [facility] Work Phone: Comment on above: The validity of the calculated GFR & GFRAA in patients over 70 years has not been determined. Clinical correlation is essential. Serum or plasma urea nitroge n measurement (mass/volume)on 03-20-2022 Urea nitrogen [Mass/Vol] 18 mg/dL 7-18 [facility] Work Phone: Squamous epithelial cells de tection in urine sediment by light microscopyon 03-20-2022 Epithelial cells.squamous LM Ql (Urine sed) 0-5 SEEN /hpf 5-10 [facility] Work Phone: Thin prep Papanicolaou smear with manual screeningon 03-20-2022 Thin prep Papanicolaou smear with manual screening 133 U/L 15-37 [facility] Work Phone: Comment on above: Slight Hemolysis, Re sult may be falsely increased. Thin prep Papanicolaou smear with manual screening 9 5-15 [facility] Work Phone: Urine blood detectionon - RBC Ql (U) 250 /ul Negative [facility] Work Phone: RBC Ql (U) 5-10 SEEN /hpf 0-5 [facility] Work Phone: Urine clarityon 03-20-2022 Clarity (U) Cloudy Clear [facility] Work Phone: Urine color determinationon 03-20-2022 Color (U) Yellow Yellow [facility] Work Phone: Urine glucose detectionon Glucose Ql (U) 50 mg/dl Normal [facility] Work Phone: Urine leukocyte esterase det ection by dipstickon 03-20-2022 Leukocyte esterase Test strip Ql (U) 500 /ul Negative [facility] Work Phone: Urine pHon 03-20-2022 pH (U) 6.0 [pH] 5.0 - 8.0 [facility] Work Phone: Urine sediment bacteria coun t by microscopy (number/high power field)on 03-20-2022 Bacteria LM.HPF (Urine sed) [#/Area] 4 /[HPF] None Seen [facility] Work Phone: Urine specific gravity measu rementon 03-20-2022 Specific gravity (U) [Rel density] 1.015 1.002-1.030 [facility] Work Phone: Urobilinogen Auto test strip Ql (U)on 03-20-2022 Urobilinogen Ql (U) 12 mg/dl Normal [facility] Work Phone: [phone] Whole blood hemoglobin A1c/t otal hemoglobin ratio (mass fraction)on 03-20-2022 HbA1c (Bld) [Mass fraction] 6.7 % 3.8-5.6 [facility] Work Phone: Comment on above: Normal < 5.7 % Predi abetic 5.7 - 6.4 % Diabetic >or= 6.5 % Please note range changes. Absolute lymphocyte counton 12-22-2021 Lymphocytes Auto (Unsp spec) [#/Vol] 2.26 10*3/uL 0.83-4.51 [facility] Work Phone: Basophil percentageon 2021 Basophils/100 WBC (Bld) 0.5 % 0-1 [facility] Work Phone: Eosinophils/100 WBC (Bld) 2.7 % 0-5 [facility] Work Phone: Neutrophils (Bld) [#/Vol] 2.5 10*3/uL 2.0-7.7 [facility] Work Phone: Neutrophils/100 WBC (Bld) 46.1 % 47-70 [facility] Work Phone: WBC (Bld) [#/Vol] 5.5 10*3/uL 4.4-11.0 [facility] Work Phone: Blood erythrocytes count (nu mber/volume)on 12-22-2021 RBC (Bld) [#/Vol] 3.32 10*6/uL 4.2-5.4 [facility] Work Phone: [phone] Blood hemoglobin measurement (mass/volume)on 12-22-2021 Hemoglobin (Bld) [Mass/Vol] 10.4 g/dL 12.0-15.0 [facility] Work Phone: Blood lymphocytes/100 leukoc yteson 12-22-2021 Lymphocytes/100 WBC (Bld) 41.2 % 19-41 [facility] Work Phone: Blood monocytes/100 leukocyt eson 12-22-2021 Monocytes/100 WBC (Bld) 9.1 % 0-10 [facility] Work Phone: Blood platelet mean volumeon 12-22-2021 Platelet mean volume (Bld) [Entitic vol] 9.6 fL 6.2-12.0 [facility] Work Phone: Determination of erythrocyte mean corpuscular volume (MCV)on 12-22-2021 MCV (RBC) [Entitic vol] 90.7 fL 81-99 [facility] Work Phone: Hematocrit Auto (Bld) [Volum e fraction]on 12-22-2021 Hematocrit (Bld) [Volume fraction] 30.1 % 37-47 [facility] Work Phone: Hemoglobin in reticulocytes (mass per reticulocyte)on 12-22-2021 Hemoglobin (Reticulocytes) [Entitic mass] 34.0 pg 30-35 [facility] Work Phone: Iron measurement (mass/mass) on 12-22-2021 Iron (Unsp spec) [Mass/Mass] 56 ug/dL 50-170 [facility] Work Phone: Laboratory - Chemistry and C hemistry - challengeon 12-22-2021 Cobalamin (Vitamin B12) [Mass/Vol] 1270 pg/mL 211-911 [facility] Work Phone: Laboratory - Hematology and Cell countson 12-22-2021 Erythrocyte distribution width (RBC) [Entitic vol] 44.7 fL 35.1-43.9 [facility] Work Phone: Erythrocyte distribution width (RBC) [Ratio] 13.5 % 11.6-14.6 [facility] Work Phone: Immature granulocytes/100 WBC (Bld) 0.400 % 0.0-0.9 [facility] Work Phone: Comment on above: IG% - Immature Granu locytes (promyelocytes, myelocytes and metamyelocytes) > 1% indicates that a LEFT SHIFT is Present. MCH (RBC) [Entitic mass] 31.3 pg 27.0-32.0 [facility] Work Phone: Nucleated RBC/100 WBC (Bld) [Ratio] 0 % 0-5 [facility] Work Phone: [phone] MCHC Auto (RBC) [Mass/Vol]on 12-22-2021 MCHC (RBC) [Mass/Vol] 34.6 g/dL 32-36 [facility] Work Phone: [phone] No Panel Informationon 12-22 Immature Reticulocyte Fraction 3.20 % 3.00-15.90 [facility] Work Phone: Reticulocyte Count 1.42 % 0.5-1.5 [facility] Work Phone: Total Iron Binding Capacity 288 ug/dL 250-450 [facility] Work Phone: Platelets bldon 12-22-2021 Platelets (Bld) [#/Vol] 217 10*3/uL 150-450 [facility] Work Phone: Serum or plasma ferritin uzma surement (mass/volume)on 12-22-2021 Ferritin [Mass/Vol] 20 ng/mL 8-252 [facility] Work Phone: [phone] Serum or plasma folate measu rement (mass/volume)on 12-22-2021 Folate [Mass/Vol] 16.20 ng/mL 3.1-55.4 [facility] Work Phone: [phone] Serum or plasma iron saturat ion measurement (mass fraction)on 12-22-2021 Iron saturation [Mass fraction] 19.4 % 15.0-55.0 [facility] Work Phone: [phone] Absolute lymphocyte counton 12-15-2021 Lymphocytes Auto (Unsp spec) [#/Vol] 2.22 10*3/uL 0.83-4.51 [facility] Work Phone: Basophil percentageon 2021 Basophils/100 WBC (Bld) 0.6 % 0-1 [facility] Work Phone: Bilirubin [Mass/Vol] 1.10 mg/dL 0.20-1.00 [facility] Work Phone: Comment on above: For patients on eltr ombopag therapy, use of Dimension [place] TBIL is not recommended. Chloride [Moles/Vol] 109 mmol/L 98-107 [facility] Work Phone: Cholesterol [Mass/Vol] 160 mg/dL <200 [facility] Work Phone: Comment on above: <200 mg/dL Desirable 200-240 mg/dL Borderline >240 mg/dL High Risk Eosinophils/100 WBC (Bld) 2.4 % 0-5 [facility] Work Phone: Glucose [Mass/Vol] 248 mg/dL 74-106 [facility] Work Phone: Comment on above: Glucose result great er than or equal to 200 mg/dLsuggests DIABETES MELLITUS per A.D.A. criteria. Neutrophils (Bld) [#/Vol] 2.1 10*3/uL 2.0-7.7 [facility] Work Phone: Neutrophils/100 WBC (Bld) 41.5 % 47-70 [facility] Work Phone: Potassium [Moles/Vol] 3.8 mmol/L 3.5-5.1 [facility] Work Phone: Protein [Mass/Vol] 7.1 g/dL 6.4-8.2 [facility] Work Phone: Sodium [Moles/Vol] 140 mmol/L 136-145 [facility] Work Phone: Triglyceride [Mass/Vol] 67 mg/dL <199 [facility] Work Phone: Comment on above: The drugs N-Acetylcy steine and Metamizole may falsely depress this assay.Serum Triglycerides Reference Interval Normal <150 mg/dL Borderline high 150 - 199 mg/dL High 200 - 499 mg/dL Very High > or = 500 mg/dL WBC (Bld) [#/Vol] 5.0 10*3/uL 4.4-11.0 [facility] Work Phone: [phone] Blood erythrocytes count (nu mber/volume)on 12-15-2021 RBC (Bld) [#/Vol] 3.18 10*6/uL 4.2-5.4 [facility] Work Phone: [phone] Blood hemoglobin measurement (mass/volume)on 12-15-2021 Hemoglobin (Bld) [Mass/Vol] 9.9 g/dL 12.0-15.0 [facility] Work Phone: [phone] Blood lymphocytes/100 leukoc yteson 12-15-2021 Lymphocytes/100 WBC (Bld) 44.8 % 19-41 [facility] Work Phone: [phone] Blood monocytes/100 leukocyt eson 12-15-2021 Monocytes/100 WBC (Bld) 10.5 % 0-10 [facility] Work Phone: [phone] Blood platelet mean volumeon 12-15-2021 Platelet mean volume (Bld) [Entitic vol] 10.1 fL 6.2-12.0 [facility] Work Phone: [phone] Determination of erythrocyte mean corpuscular volume (MCV)on 12-15-2021 MCV (RBC) [Entitic vol] 90.6 fL 81-99 [facility] Work Phone: [phone] Hematocrit Auto (Bld) [Volum e fraction]on 12-15-2021 Hematocrit (Bld) [Volume fraction] 28.8 % 37-47 [facility] Work Phone: [phone] Laboratory - Chemistry and C hemistry - challengeon 12-15-2021 ALP [Catalytic activity/Vol] 98 U/L 45-117 [facility] Work Phone: [phone] ALT [Catalytic activity/Vol] 27 U/L 13-56 [facility] Work Phone: [phone] CO2 [Moles/Vol] 23.0 mmol/L 21.0-32.0 [facility] Work Phone: [phone] Globulin (S) [Mass/Vol] 4.1 g/dL 2.2-4.2 [facility] Work Phone: [phone] Urea nitrogen/Creatinine [Mass ratio] 14.4 mg/mg 10-20 [facility] Work Phone: [phone] Laboratory - Hematology and Cell countson 12-15-2021 Erythrocyte distribution width (RBC) [Entitic vol] 46.1 fL 35.1-43.9 [facility] Work Phone: [phone] Erythrocyte distribution width (RBC) [Ratio] 13.8 % 11.6-14.6 [facility] Work Phone: [phone] Immature granulocytes/100 WBC (Bld) 0.200 % 0.0-0.9 [facility] Work Phone: [phone] Comment on above: IG% - Immature Granu locytes (promyelocytes, myelocytes and metamyelocytes) > 1% indicates that a LEFT SHIFT is Present. MCH (RBC) [Entitic mass] 31.1 pg 27.0-32.0 [facility] Work Phone: Nucleated RBC/100 WBC (Bld) [Ratio] 0 % 0-5 [facility] Work Phone: [phone] MCHC Auto (RBC) [Mass/Vol]on 12-15-2021 MCHC (RBC) [Mass/Vol] 34.4 g/dL 32-36 [facility] Work Phone: No Panel Informationon 12-15 Estimated GFR (MDRD) Amer 95 mL/min >60 [facility] Work Phone: [phone] Comment on above: GFR Calc Estimated GFR (MDRD) Non-Af Amer 79 mL/min >60 [facility] Work Phone: [phone] Comment on above: Non- GFR Calc Thyroid Stimulating Hormone (TSH) 4.10 uIU/mL 0.358-3.74 [facility] Work Phone: Vitamin D 25-Hydroxy 27.0 ng/mL [facility] Work Phone: Comment on above: Vitamin D 25(OH) Sta tus Range Deficiency <20 ng/mL (50nmol/L) Insufficiency 20 - 30 ng/mL (50 - 75 nmol/L) Sufficiency 30 - 100 ng/mL (75 - 250 nmol/L) Toxicity >100 ng/mL (>250 nmol/L) Platelets bldon 12-15-2021 Platelets (Bld) [#/Vol] 199 10*3/uL 150-450 [facility] Work Phone: Serum or plasma albumin sabino urement (mass/volume)on 12-15-2021 Albumin [Mass/Vol] 3.0 g/dL 3.2-5.0 [facility] Work Phone: Serum or plasma albumin/glob ulin mass ratioon 12-15-2021 Albumin/Globulin [Mass ratio] 0.7 {ratio} 0.9-2.4 [facility] Work Phone: Serum or plasma calcium sabino urement (mass/volume)on 12-15-2021 Calcium [Mass/Vol] 8.3 mg/dL 8.5-10.1 [facility] Work Phone: Serum or plasma cholesterol in HDL measurement (mass/volume)on 12-15-2021 Cholesterol in HDL [Mass/Vol] 52 mg/dL >40 [facility] Work Phone: Comment on above: The drugs N-Acetylcy steine and Metamizole may falsely depress this assay. Reference Range HDL <40 mg/dL Low HDL Cholesterol HDL >or= 60 mg/dL High HDL Cholesterol Serum or plasma cholesterol in VLDL measurement (mass/volume)on 12-15-2021 Cholesterol in VLDL [Mass/Vol] 13 mg/dL 5-40 [facility] Work Phone: Serum or plasma creatinine m easurement (mass/volume)on 12-15-2021 Creatinine [Mass/Vol] 0.76 mg/dL 0.55-1.02 [facility] Work Phone: Comment on above: The validity of the calculated GFR & GFRAA in patients over 70 years has not been determined. Clinical correlation is essential. Serum or plasma low density lipoprotein (LDL) cholesterol measurement (mass/volume)on 12-15-2021 Cholesterol in LDL [Mass/Vol] 95 mg/dL 0-130 [facility] Work Phone: Serum or plasma urea nitroge n measurement (mass/volume)on 12-15-2021 Urea nitrogen [Mass/Vol] 11 mg/dL 7-18 [facility] Work Phone: Thin prep Papanicolaou smear with manual screeningon 12-15-2021 Thin prep Papanicolaou smear with manual screening 30 U/L 15-37 [facility] Work Phone: Thin prep Papanicolaou smear with manual screening 8 5-15 [facility] Work Phone: Basophil percentageon 2021 Chloride [Moles/Vol] 102 mmol/L 98-107 [facility] Work Phone: Glucose [Mass/Vol] 199 mg/dL 74-106 [facility] Work Phone: Comment on above: Fasting Glucose resu lt greater than or equal to 126 mg/dL suggests DIABETES MELLITUS per A.D.A. criteria. Potassium [Moles/Vol] 4.6 mmol/L 3.5-5.1 [facility] Work Phone: Sodium [Moles/Vol] 132 mmol/L 136-145 [facility] Work Phone: Laboratory - Chemistry and C hemistry - challengeon 09-24-2021 CO2 [Moles/Vol] 24.0 mmol/L 21.0-32.0 [facility] Work Phone: [phone] Urea nitrogen/Creatinine [Mass ratio] 16.5 mg/mg 10-20 [facility] Work Phone: No Panel Informationon 09-24 Estimated GFR (MDRD) Amer 111 mL/min >60 [facility] Work Phone: [phone] Comment on above: GFR Calc Estimated GFR (MDRD) Non-Af Amer 92 mL/min >60 [facility] Work Phone: [phone] Comment on above: Non- GFR Calc Serum or plasma calcium sabino urement (mass/volume)on 09-24-2021 Calcium [Mass/Vol] 8.9 mg/dL 8.5-10.1 [facility] Work Phone: [phone] Serum or plasma creatinine m easurement (mass/volume)on 09-24-2021 Creatinine [Mass/Vol] 0.67 mg/dL 0.55-1.02 [facility] Work Phone: [phone] Comment on above: The validity of the calculated GFR & GFRAA in patients over 70 years has not been determined. Clinical correlation is essential. Serum or plasma urea nitroge n measurement (mass/volume)on 09-24-2021 Urea nitrogen [Mass/Vol] 11 mg/dL 7-18 [facility] Work Phone: [phone] Thin prep Papanicolaou smear with manual screeningon 09-24-2021 Thin prep Papanicolaou smear with manual screening 6 5-15 [facility] Work Phone: [phone] Absolute lymphocyte counton 09-15-2021 Lymphocytes Auto (Unsp spec) [#/Vol] 3.60 10*3/uL 0.83-4.51 [facility] Work Phone: [phone] Basophil percentageon 2021 Basophils/100 WBC (Bld) 0.6 % 0-1 [facility] Work Phone: [phone] Bilirubin [Mass/Vol] 1.40 mg/dL 0.20-1.00 [facility] Work Phone: [phone] Comment on above: For patients on eltr ombopag therapy, use of Dimension [place] TBIL is not recommended. Chloride [Moles/Vol] 103 mmol/L 98-107 [facility] Work Phone: Eosinophils/100 WBC (Bld) 1.6 % 0-5 [facility] Work Phone: Glucose [Mass/Vol] 315 mg/dL 74-106 [facility] Work Phone: Comment on above: Glucose result great er than or equal to 200 mg/dLsuggests DIABETES MELLITUS per A.D.A. criteria. Neutrophils (Bld) [#/Vol] 3.7 10*3/uL 2.0-7.7 [facility] Work Phone: Neutrophils/100 WBC (Bld) 45.5 % 47-70 [facility] Work Phone: Potassium [Moles/Vol] 3.3 mmol/L 3.5-5.1 [facility] Work Phone: Protein [Mass/Vol] 8.0 g/dL 6.4-8.2 [facility] Work Phone: Sodium [Moles/Vol] 135 mmol/L 136-145 [facility] Work Phone: WBC (Bld) [#/Vol] 8.1 10*3/uL 4.4-11.0 [facility] Work Phone: Blood erythrocytes count (nu mber/volume)on 09-15-2021 RBC (Bld) [#/Vol] 3.86 10*6/uL 4.2-5.4 [facility] Work Phone: Blood hemoglobin measurement (mass/volume)on 09-15-2021 Hemoglobin (Bld) [Mass/Vol] 12.2 g/dL 12.0-15.0 [facility] Work Phone: Blood lymphocytes/100 leukoc yteson 09-15-2021 Lymphocytes/100 WBC (Bld) 44.3 % 19-41 [facility] Work Phone: Blood monocytes/100 leukocyt eson 09-15-2021 Monocytes/100 WBC (Bld) 7.8 % 0-10 [facility] Work Phone: Blood platelet mean volumeon 09-15-2021 Platelet mean volume (Bld) [Entitic vol] 9.9 fL 6.2-12.0 [facility] Work Phone: [phone] Determination of erythrocyte mean corpuscular volume (MCV)on 09-15-2021 MCV (RBC) [Entitic vol] 87.8 fL 81-99 [facility] Work Phone: [phone] Hematocrit Auto (Bld) [Volum e fraction]on 09-15-2021 Hematocrit (Bld) [Volume fraction] 33.9 % 37-47 [facility] Work Phone: [phone] Laboratory - Chemistry and C hemistry - challengeon 09-15-2021 ALP [Catalytic activity/Vol] 131 U/L 45-117 [facility] Work Phone: [phone] ALT [Catalytic activity/Vol] 23 U/L 13-56 [facility] Work Phone: [phone] CO2 [Moles/Vol] 24.0 mmol/L 21.0-32.0 [facility] Work Phone: [phone] Globulin (S) [Mass/Vol] 4.9 g/dL 2.2-4.2 [facility] Work Phone: [phone] Urea nitrogen/Creatinine [Mass ratio] 15.6 mg/mg 10-20 [facility] Work Phone: [phone] Laboratory - Hematology and Cell countson 09-15-2021 Erythrocyte distribution width (RBC) [Entitic vol] 43.9 fL 35.1-43.9 [facility] Work Phone: [phone] Erythrocyte distribution width (RBC) [Ratio] 13.8 % 11.6-14.6 [facility] Work Phone: [phone] Immature granulocytes/100 WBC (Bld) 0.200 % 0.0-0.9 [facility] Work Phone: [phone] Comment on above: IG% - Immature Granu locytes (promyelocytes, myelocytes and metamyelocytes) > 1% indicates that a LEFT SHIFT is Present. MCH (RBC) [Entitic mass] 31.6 pg 27.0-32.0 [facility] Work Phone: [phone] Nucleated RBC/100 WBC (Bld) [Ratio] 0 % 0-5 [facility] Work Phone: MCHC Auto (RBC) [Mass/Vol]on 09-15-2021 MCHC (RBC) [Mass/Vol] 36.0 g/dL 32-36 [facility] Work Phone: No Panel Informationon 09-15 Estimated GFR (MDRD) Amer 104 mL/min >60 [facility] Work Phone: Comment on above: GFR Calc Estimated GFR (MDRD) Non-Af Amer 86 mL/min >60 [facility] Work Phone: Comment on above: Non- GFR Calc Thyroid Stimulating Hormone (TSH) 6.85 uIU/mL 0.358-3.74 [facility] Work Phone: [phone] Vitamin D 25-Hydroxy 29.7 ng/mL [facility] Work Phone: Comment on above: Vitamin D 25(OH) Sta tus Range Deficiency <20 ng/mL (50nmol/L) Insufficiency 20 - 30 ng/mL (50 - 75 nmol/L) Sufficiency 30 - 100 ng/mL (75 - 250 nmol/L) Toxicity >100 ng/mL (>250 nmol/L) Platelets bldon 09-15-2021 Platelets (Bld) [#/Vol] 220 10*3/uL 150-450 [facility] Work Phone: [phone] Serum or plasma albumin sabino urement (mass/volume)on 09-15-2021 Albumin [Mass/Vol] 3.1 g/dL 3.2-5.0 [facility] Work Phone: [phone] Serum or plasma albumin/glob ulin mass ratioon 09-15-2021 Albumin/Globulin [Mass ratio] 0.6 {ratio} 0.9-2.4 [facility] Work Phone: [phone] Serum or plasma calcium sabino urement (mass/volume)on 09-15-2021 Calcium [Mass/Vol] 8.9 mg/dL 8.5-10.1 [facility] Work Phone: Serum or plasma creatinine m easurement (mass/volume)on 09-15-2021 Creatinine [Mass/Vol] 0.71 mg/dL 0.55-1.02 [facility] Work Phone: Comment on above: The validity of the calculated GFR & GFRAA in patients over 70 years has not been determined. Clinical correlation is essential. Serum or plasma urea nitroge n measurement (mass/volume)on 09-15-2021 Urea nitrogen [Mass/Vol] 11 mg/dL 7-18 [facility] Work Phone: Thin prep Papanicolaou smear with manual screeningon 09-15-2021 Thin prep Papanicolaou smear with manual screening 26 U/L 15-37 [facility] Work Phone: Thin prep Papanicolaou smear with manual screening 8 5-15 [facility] Work Phone: NM Myocardial Perf Imaging M ulti Specton 02-15-2017 NM Myocardial Perf Imaging Multi Spect Patient Name: SHASHI OSWALD Nuc Med Exam Date/Time 02/15/2017 10:12:43 EDT Exam NM Myocardial Perf Imaging Multi Spect Ordering Physician MD TRENA, JOE Robert Accession Number [id number] CPT4 Codes 70410 (), 42762 (NM EKG TREADMILL - NUCLEAR) Reason For Exam CHEST PAIN, ACUTE CORONARY SYNDROME SUSPECT Report *Nuclear Cardiology* [place] [id number] Fax #: [email or web address] --- Nuclear Stress Myocardial Perfusion Study Regadenoson Protocol Gated SPECT Patient: Shashi Oswald Height: (61 in) Weight: (141.9 lb) : 1945 Age: 71 Gender: F Study Date: 02/15/2017 Accession#: Patient Room #: *ORDERING PHYSICIAN: * Joe Hein *SUPERVISING PHYSICIAN: * Raymundo Murphy, *RN: * Damaris Bright MD *RADIOLOGIST: * Jazmin Diego MD *NUCLEAR TECH: * Deepti Sanchez *READING PHYSICIAN: * Ash Orourke MD, [facility] --- Indications: Chest pain. --- Summary: [...] peak heart rate and blood pressure was 29984 mm Hg/min. The patient experienced no chest [...] 02/15/2017 4:09 pm Dictating Physician: MD BRYCE., [facility] Signed Date and Time: 02/15/2017 4:09 pm Signed by: MD. [facility] Normal [facility] Rad Signatureon [place] Rad Signature Patient Name: SHASHI OSWALD Nuc Med Exam Date/Time 02/15/2017 08:18:01 EDT Exam [place] Rad Signature Ordering Physician HODAN, EMMANUEL [place] Accession Number [id number] Reason For Exam Rad signature Report --- [...] peak heart rate and blood pressure was 63394 mm Hg/min. The patient experienced no chest [...] and Time: 02/03/2018 9:58 Transcribed By:ROSALINDA Normal [facility] Basic Metabolic Panelon 06- Anion gap 12 mmol/L Normal [facility] Comment on above: Performed By: #### H EMOG, BMP3, TROPN, LIPD2, TSH4, HA1C2 ####[place] [address] [place] [address] Creatinine 0.62 mg/dL Normal 0.55-1.40 [facility] Comment on above: Performed By: #### H EMOG, BMP3, TROPN, LIPD2, TSH4, HA1C2 ####[place] [address] [place] [address] eGFR (black) mL/min/{1.73_m2} Normal >60 [facility] Comment on above: Performed By: #### H EMOG, BMP3, TROPN, LIPD2, TSH4, HA1C2 ####[place] [address] [place] [address] eGFR (non-black) mL/min/{1.73_m2} Normal >60 [facility] Comment on above: Result Comment: Sour ce- MDRD equation with creatinine calibration to IDMS(NKDEP)eGFR not recommended for drug dose adjustment Performed By: #### H EMOG, BMP3, TROPN, LIPD2, TSH4, HA1C2 ####[place] [address] [place] [address] CO2 20 mmol/L Low 21-32 [facility] Comment on above: Performed By: #### H EMOG, BMP3, TROPN, LIPD2, TSH4, HA1C2 ####[place] [address] [place] [address] Glucose mass conc 201 mg/dL High 70-100 [facility] Comment on above: Performed By: #### H EMOG, BMP3, TROPN, LIPD2, TSH4, HA1C2 ####[place] [address] [place] [address] Urea nitrogen 14 mg/dL Normal 7-25 [facility] Comment on above: Performed By: #### H EMOG, BMP3, TROPN, LIPD2, TSH4, HA1C2 ####[address] [address] Calcium 9.2 mg/dL Normal 8.2-10.1 [facility] Comment on above: Performed By: #### H EMOG, BMP3, TROPN, LIPD2, TSH4, HA1C2 ####[address] [address] Chloride 104 mmol/L Normal 98-109 [facility] Comment on above: Performed By: #### H EMOG, BMP3, TROPN, LIPD2, TSH4, HA1C2 ####[address] [address] Potassium molar conc 3.6 mmol/L Normal 3.5-5.1 [facility] Comment on above: Performed By: #### H EMOG, BMP3, TROPN, LIPD2, TSH4, HA1C2 ####[address] [address] Sodium 136 mmol/L Normal 135-145 [facility] Comment on above: Performed By: #### H EMOG, BMP3, TROPN, LIPD2, TSH4, HA1C2 ####[address] [address] Hemoglobin A1Con 02-14-2017 Glucose mass conc 143 mg/dL Normal [facility] Comment on above: Performed By: #### H EMOG, BMP3, TROPN, LIPD2, TSH4, HA1C2 ####[address] [address] Hemoglobin A1c/Hemoglobin.total mass fraction (Bld) 6.6 % High 4.0-5.6 [facility] Comment on above: Result Comment: --Hg bA1C levels may not be accurate in patients who haverenal disease, received recent blood transfusions, are anemic,or who have dyshemoglobinemia. Performed By: #### H EMOG, BMP3, TROPN, LIPD2, TSH4, HA1C2 ####[address] [address] Hemogramon 02-14-2017 Erythrocyte distribution width Auto Ratio (RBC) 14.6 % High 11.5-14.5 [facility] Comment on above: Performed By: #### H EMOG, BMP3, TROPN, LIPD2, TSH4, HA1C2 ####[place] [address] Erythrocytes (RBC) 3.71 10*6/uL Low 3.80-5.20 [facility] Comment on above: Performed By: #### H EMOG, BMP3, TROPN, LIPD2, TSH4, HA1C2 ####[place] [address] Hematocrit (HCT) 33.2 % Low 35.0-47.0 [facility] Comment on above: Performed By: #### H EMOG, BMP3, TROPN, LIPD2, TSH4, HA1C2 ####[place] [address] Hemoglobin mass conc (Bld) 11.4 g/dL Low 11.7-16.0 [facility] Comment on above: Performed By: #### H EMOG, BMP3, TROPN, LIPD2, TSH4, HA1C2 ####[place] [address] MCH 30.9 pg Normal 26.0-34.0 [facility] Comment on above: Performed By: #### H EMOG, BMP3, TROPN, LIPD2, TSH4, HA1C2 ####[place] [address] MCHC mass conc (RBC) 34.4 % Normal 32.0-36.0 [facility] Comment on above: Performed By: #### H EMOG, BMP3, TROPN, LIPD2, TSH4, HA1C2 ####[place] [address] MCV 89.7 fL Normal 79.0-98.0 [facility] Comment on above: Performed By: #### H EMOG, BMP3, TROPN, LIPD2, TSH4, HA1C2 ####[address] [place] [address] Platelet mean volume (PMV) 8.2 fL Normal 7.4-10.4 [facility] Comment on above: Performed By: #### H EMOG, BMP3, TROPN, LIPD2, TSH4, HA1C2 ####[address] [place] [address] Platelets 238 10*3/uL Normal 140-440 [facility] Comment on above: Performed By: #### H EMOG, BMP3, TROPN, LIPD2, TSH4, HA1C2 ####[address] [place] [address] WBC (Leukocytes) 9.1 10*3/uL Normal 3.6-10.7 [facility] Comment on above: Performed By: #### H EMOG, BMP3, TROPN, LIPD2, TSH4, HA1C2 ####[address] [address] Lipid Panelon 02-14-2017 Cholesterol to HDL Ratio 3 {ratio} Normal [facility] Comment on above: Result Comment: Ref Range:< 3 Low Risk for CHD3-6 Mod Risk for CHD> 6 High Risk for CHD Performed By: #### H EMOG, BMP3, TROPN, LIPD2, TSH4, HA1C2 ####[address] [address] HDL Cholesterol 42 mg/dL Normal 40-59 [facility] Comment on above: Performed By: #### H EMOG, BMP3, TROPN, LIPD2, TSH4, HA1C2 ####[address] [address] Low Density Lipoprotein 48 mg/dL Normal <100 [facility] Comment on above: Performed By: #### H EMOG, BMP3, TROPN, LIPD2, TSH4, HA1C2 ####[address] [address] Cholesterol 125 mg/dL Normal < 200 [facility] Comment on above: Performed By: #### H EMOG, BMP3, TROPN, LIPD2, TSH4, HA1C2 ####[place] [address] Triglyceride 176 mg/dL Abnormal <150 [facility] Comment on above: Performed By: #### H EMOG, BMP3, TROPN, LIPD2, TSH4, HA1C2 ####[place] [address] Thyroid Stim. Hormoneon 01-22 Thyroid Stim. Hormone 1.430 uU/mL Normal 0.358-3.740 [facility] Comment on above: Performed By: #### H EMOG, BMP3, TROPN, LIPD2, TSH4, HA1C2 ####[place] [address] Troponin Ion 02-14-2017 Troponin I.cardiac mass conc 0.544 ng/mL High 0.000-0.045 [facility] Comment on above: Result Comment: 0.04 6 - 0.400 = Indeterminate> 0.400 = Consider Myocardial Injury Performed By: #### T ROPN ####[place] [address] Troponin I.cardiac mass conc 0.709 ng/mL High 0.000-0.045 [facility] Comment on above: Result Comment: 0.04 6 - 0.400 = Indeterminate> 0.400 = Consider Myocardial Injury Performed By: #### T ROPN ####[place] [address] Troponin I.cardiac mass conc 0.844 ng/mL High 0.000-0.045 [facility] Comment on above: Result Comment: 0.04 6 - 0.400 = Indeterminate> 0.400 = Consider Myocardial Injury Performed By: #### H EMOG, BMP3, TROPN, LIPD2, TSH4, HA1C2 ####[place] [address] Urinalysis,Macroon 7 Bilirubin (direct) Negative Normal Negative [facility] Comment on above: Performed By: #### U AMAC ####[address] [place] [address] Ketone,Urine Negative Normal Negative [facility] Comment on above: Performed By: #### U AMAC ####[place] [address] [place] [address] Occult Blood,Ur Negative Normal Negative [facility] Comment on above: Performed By: #### U AMAC ####[place] [address] [place] [address] Specific [place],Urine 1.010 Normal 1.005-1.030 [facility] Comment on above: Performed By: #### U AMAC ####[place] [address] [place] [address] Total Protein,Urine Negative Normal Negative [facility] Comment on above: Performed By: #### U AMAC ####[place] [address] [place] [address] Urine, appearance clear Normal Clear [facility] Comment on above: Performed By: #### U AMAC ####[place] [address] [place] [address] Urine, color p. yel Normal Lt. Yellow [facility] Comment on above: Performed By: #### U AMAC ####[address] [place] [address] Urine, glucose presence 1000 mg/dL Normal Negative [facility] Comment on above: Performed By: #### U AMAC ####[place] [address] [place] [address] Urine, nitrite presence Negative Normal Negative [facility] Comment on above: Performed By: #### U AMAC ####[place] [address] [place] [address] Urine, pH 5.0 [pH] Normal 5.0-8.0 [facility] Comment on above: Performed By: #### U AMAC ####[place] [address] [place] [address] Urine, urobilinogen 1 mg/dL Normal 0-1 [facility] Comment on above: Performed By: #### U AMAC ####[place] [address] WBC (Leukocytes) Negative Normal Negative [facility] Comment on above: Performed By: #### U AMAC ####[address] [address] Culture, urine Bacteria identified Cx Nom (U) Presumptive E. coli [facility] Work Phone: Vital Signs Date Time Vital Sign Value Performing Clinician Faci lity 03-18-2025 12:23-0400 Body temperature 98.3 [degF] Dr. Candelario Santana MD Work Phone: [phone] [place] [address] 03-18-2025 12:23-0400 Diastolic blood pressure 51 mm[Hg] Dr. Candelario Santana MD Work Phone: [phone] [place] [address] 03-18-2025 12:23-0400 Heart rate 69 /min Dr. Candelario Santana MD Work Phone: [phone])[phone] [place] [address] 03-18-2025 12:23-0400 Respiratory rate 12 /min Dr. Candelario Santana MD Work Phone: [phone] [place] [address] 03-18-2025 12:23-0400 SaO2% (BldA) [Mass fraction] 100 % Dr. Candelario Santana MD Work Phone: [phone])213-478463 [address] 03-18-2025 12:23-0400 Systolic blood pressure 118 mm[Hg] Dr. Candelario Santana MD Work Phone: [phone])453-896876 [place] [address] 03-18-2025 10:21-0400 Body height 157.[address] Candelario Santana MD Work Phone: [phone] [place] [address] 03-18-2025 10:21-0400 Body mass index (BMI) [Ratio] 23.1 kg/m2 Dr. Candelario Santana MD Work Phone: [phone] [place] [address] 03-18-2025 10:21-0400 Body weight 57.[address] Candelario Santana MD Work Phone: [phone] [place] [address] 03-09-2025 08:10-0400 Diastolic blood pressure 46 mm[Hg] Dr. Candelario Santana MD Work Phone: [facility] 03-09-2025 08:10-0400 Heart rate 63 /min Dr. Candelario Santana MD Work Phone: [phone] [place] [address] 03-09-2025 08:10-0400 Systolic blood pressure 146 mm[Hg] Dr. Candelario Santana MD Work Phone: [phone] [place] [address] 03-09-2025 06:00-0400 Body temperature 97.9 [degF] Dr. Candelario Santana MD Work Phone: [phone] [place] [address] 03-09-2025 06:00-0400 Respiratory rate 16 /min Dr. Candelario Santana MD Work Phone: [phone] [place] [address] 03-09-2025 06:00-0400 SaO2% (BldA) [Mass fraction] 99 % Dr. Candelario Santana MD Work Phone: [phone] [place] [address] 03-07-2025 06:00-0400 Body mass index (BMI) [Ratio] 23.5 kg/m2 Dr. Candelario Santana MD Work Phone: 4(286)524-237922 [place] [address] 03-07-2025 06:00-0400 Body weight 58.[address] Candelario Santana MD Work Phone: 6(383)203-916522 [place] [address] 03-04-2025 13:25-0400 Body height 157.[address] Candelario Santana MD Work Phone: 0(769)771-789822 [place] [address] 02-21-2025 12:07-0400 Body temperature 97.8 [degF] Dr. Candelario Santana MD Work Phone: 9(676)141-731976 [place] [address] 02-21-2025 12:07-0400 Diastolic blood pressure 56 mm[Hg] Dr. Candelario Santana MD Work Phone: 6(665)050-064522 [place] [address] 02-21-2025 12:07-0400 Heart rate 81 /min Dr. Candelario Santana MD Work Phone: 3(853)624-489776 [place] [address] 02-21-2025 12:07-0400 Respiratory rate 16 /min Dr. Candelario Santana MD Work Phone: 6(002)395-269722 [place] [address] 02-21-2025 12:07-0400 SaO2% (BldA) [Mass fraction] 100 % Dr. Candelario Santana MD Work Phone: 8(617)149-475622 [place] [address] 02-21-2025 12:07-0400 Systolic blood pressure 122 mm[Hg] Dr. Candelario Santana MD Work Phone: 5(513)996-466622 [place] [address] 02-19-2025 12:27-0400 Body height 154.[address] Candelario Santana MD Work Phone: 3(593)001-674922 [place] [address] 02-19-2025 12:27-0400 Body weight 57.[address] Candelario Santana MD Work Phone: 7(352)825-539122 [place] [address] 02-16-2025 08:45-0400 Inhaled oxygen flow rate 2 L/min Dr. Candelario Santana MD Work Phone: 9(121)443-340522 [place] [address] 02-15-2025 16:04-0400 Body mass index (BMI) [Ratio] 23.8 kg/m2 Dr. Candelario Santana MD Work Phone: 7(847)290-109722 [place] [address] 02-15-2025 15:32-0400 Body temperature 98.6 [degF] Dr. Candelario Santana MD Work Phone: 5(754)911-392922 [place] [address] 02-15-2025 15:32-0400 Diastolic blood pressure 66 mm[Hg] Dr. Candelario Santana MD Work Phone: 8(217)993-599822 [place] [address] 02-15-2025 15:32-0400 Heart rate 78 /min Dr. Candelario Santana MD Work Phone: 5(491)064-306022 [place] [address] 02-15-2025 15:32-0400 Respiratory rate 15 /min Dr. Candelario Santana MD Work Phone: 9(735)043-960122 [place] [address] 02-15-2025 15:32-0400 SaO2% (BldA) [Mass fraction] 100 % Dr. Candelario Santana MD Work Phone: 7(530)600-978022 [place] [address] 02-15-2025 15:32-0400 Systolic blood pressure 113 mm[Hg] Dr. Candelario Santana MD Work Phone: 5(385)218-292922 [place] [address] 02-15-2025 13:11-0400 Body height 154.[address] Candelario Santana MD Work Phone: 3(195)843-452076 [place] [address] 02-15-2025 13:11-0400 Body mass index (BMI) [Ratio] 26.9 kg/m2 Dr. Candelario Santana MD Work Phone: 6(811)032-454976 [place] [address] 02-15-2025 13:110400 Body weight 64.[address] Candelario Santana MD Work Phone: 7(901)242-254776 [place] [address] 11-24-2022 14:15-0400 Body temperature 97.4 [degF] Dr. Candelario Santana Work Phone: 7(608)626-924976 [place] [address] 11-24-2022 14:15-0400 Diastolic blood pressure 61 mm[Hg] Dr. Candelario Santana Work Phone: 2(077)521-710122 [place] [address] 11-24-2022 14:15-0400 Heart rate 69 /min Dr. Candelario Santana Work Phone: 4(675)743-841076 [place] [address] 11-24-2022 14:15-0400 Respiratory rate 16 /min Dr. Candelario Santana Work Phone: 6(257)325-640576 [place] [address] 11-24-2022 14:15-0400 SaO2% (BldA) [Mass fraction] 100 % Dr. Candelario Santana Work Phone: 0(991)093-213876 [place] [address] 11-24-2022 14:15-0400 Systolic blood pressure 106 mm[Hg] Dr. Candelario Santana Work Phone: 8(506)872-831776 [place] [address] 11-24-2022 11:22-0400 Body height 154.[address] Candelario Santana Work Phone: 6(223)649-995876 [place] [address] 11-24-2022 11:22-0400 Body mass index (BMI) [Ratio] 26 kg/m2 Dr. Candelario Santana Work Phone: 8(421)877-677376 [place] [address] 11-24-2022 11:22-0400 Body weight 62.[address] Candelario Santana Work Phone: 4(212)862-183076 [place] [address] 06-18-2022 15:27-0400 Body height 154.[address] Candelario Santana Work Phone: [facility] 06-18-2022 15:27-0400 Body mass index (BMI) [Ratio] 26.3 kg/m2 Dr. Candelario Santana Work Phone: [facility] 06-18-2022 15:27-0400 Body weight 63.[address] Candelario Santana Work Phone: [facility] 03-21-2022 09:34-0400 Body temperature 97.8 [degF] Dr. Candelario Santana Work Phone: [facility] Work Phone: 03-21-2022 09:34-0400 Diastolic blood pressure 66 mm[Hg] Dr. Candelario Santana Work Phone: [facility] Work Phone: 03-21-2022 09:34-0400 Heart rate 73 /min Dr. Candelario Santana Work Phone: [facility] Work Phone: 03-21-2022 09:34-0400 Respiratory rate 18 /min Dr. Candelario Santana Work Phone: [facility] Work Phone: 03-21-2022 09:34-0400 SaO2% (BldA) [Mass fraction] 97 % Dr. Candelario Santana Work Phone: [facility] Work Phone: 03-21-2022 09:34-0400 Systolic blood pressure 127 mm[Hg] Dr. Candelario Santana Work Phone: [facility] Work Phone: 03-21-2022 06:00-0400 Body weight 69.[address] Candelario Santana Work Phone: [facility] Work Phone: 03-20-2022 10:23-0400 Body height 154.[address] Candelario Santana Work Phone: [facility] Work Phone: 03-20-2022 10:23-0400 Body mass index (BMI) [Ratio] 25.8 kg/m2 Dr. Candelario Santana Work Phone: [facility] Work Phone: 03-20-2022 04:57-0400 Body temperature 98 [degF] Dr. Candelario Santana Work Phone: [facility] Work Phone: 03-20-2022 04:57-0400 Diastolic blood pressure 75 mm[Hg] Dr. Candelario Santana Work Phone: [facility] Work Phone: 03-20-2022 04:57-0400 Heart rate 77 /min Dr. Candelario Santana Work Phone: [facility] Work Phone: 03-20-2022 04:57-0400 Respiratory rate 16 /min Dr. Candelario Santana Work Phone: [facility] Work Phone: 03-20-2022 04:57-0400 SaO2% (BldA) [Mass fraction] 97 % Dr. Candelario Santana Work Phone: [facility] Work Phone: 03-20-2022 04:57-0400 Systolic blood pressure 98 mm[Hg] Dr. Candelario Santana Work Phone: [facility] Work Phone: 03-20-2022 02:07-0400 Body height 154.[address] Candelario Santana Work Phone: [facility] Work Phone: 03-20-2022 02:07-0400 Body mass index (BMI) [Ratio] 28 kg/m2 Dr. Candelario Santana Work Phone: [facility] Work Phone: 03-20-2022 02:07-0400 Body weight 67.[address] Candelario Santana Work Phone: [facility] Work Phone: Encounters Encounter Date Encounter Type Care Provider Facility Start: 07-04-2025 ambulatory Baldev Sesar [facility] Start: 07-03-2025 ambulatory Sergo Shiv [facility] Start: 07-03-2025 Evaluation and management of inpatient Rojas Elizalde Facility:[facility] Start: 07-03-2025 ambulatory Rojas Elizalde [facility] Start: 05-11-2025 ambulatory Candelario Chi Max [facility] Start: 04-26-2025 ambulatory Sergo Shiv [facility] Start: 04-10-2025 ambulatory Candelario Chi Max [facility] Start: 03-29-2025 End: 03-29-[address] Steve Werner MD -[facility] Start: 03-29-2025 End: 03-29-[address] Candelario Santana MD Work Phone: -[facility] Start: 03-22-2025 ambulatory Candelario Chi Max Facility:[facility] Start: 03-20-2025 ambulatory Candelario Chi Max Facility:[facility] Start: 03-20-[address] Pinead shen MD -[facility] Start: 03-18-2025 End: 03-18-2025 Emergency department patient visit Dr. Candelario Santana MD Work Phone: -Emergency Department Work Phone: Start: 03-13-2025 ambulatory Candelario Chi Max Facility:[facility] Start: 03-13-[address] Pineda shen MD -[facility] Start: 03-08-2025 Non-patient / Non-visit Dr. Katie Bah DO [facility] Work Phone: Start: 03-06-2025 Non-patient / Non-visit Dr. Katie Bah DO [facility] Work Phone: Start: 03-05-2025 Non-patient / Non-visit Jo [facility] Start: 03-05-2025 Non-patient / Non-visit Dr. Katie Bah [facility] Work Phone: Start: 03-01-2025 ambulatory Candelario Chi Max Facility:[facility] Start: 03-01-2025 Non-patient / Non-visit Dr. Baldev Kaba MD -[facility] Start: 03-01-2025 Non-patient / Non-visit Dr. Katie Bah [facility] Work Phone: Start: 02-28-2025 Non-patient / Non-visit Dr. Katie Bah [facility] Work Phone: Start: 02-27-2025 ambulatory Candelario Chi Max [facility] Start: 02-27-2025 Non-patient / Non-visit Dr. Steve Werner MD -[facility] Start: 02-26-2025 Non-patient / Non-visit Dr. Katie Bah [facility] Work Phone: Start: 02-23-2025 Non-patient / Non-visit Dr. Katie Bah DO [facility] Work Phone: Start: 02-22-2025 Non-patient / Non-visit Dr. Katie Bah [facility] Work Phone: Start: 02-21-2025 [...] Start: 02-19-2025 Non-patient / Non-visit Dr. Matt Chaocn MD -[facility] Start: 02-18-2025 Non-patient / Non-visit Dr. Gia Owusu [facility] Work Phone: Start: 02-17-2025 Non-patient / Non-visit Dr. Matt Chacon MD -[facility] Start: 02-17-2025 Non-patient / Non-visit Dr. Gia Owusu [facility] Work Phone: Start: 02-16-2025 Non-patient / Non-visit Dr. Matt Chacon MD -[facility] Start: 02-16-2025 Non-patient / Non-visit Dr. Baldev Berry [facility] Work Phone: Start: 02-16-2025 End: 02-16-2025 ambulatory Candelario Santana Facility:[facility] Start: 02-16-2025 End: 02-16-2025 Non-patient / Non-visit Dr. Sergo Chaney MD -[facility] Work Phone: Start: 02-15-2025 ambulatory [facility] Facility:[facility] Start: 02-15-2025 End: 02-21-2025 Evaluation and management of inpatient Dr. Lakeshia Mas MD -[facility] Work Phone: Start: 12-27-2024 End: 12-27-[address] Candelario Santana MD Work Phone: [facility] Work Phone: Start: 12-27-2024 End: 12-27-[address] Candelario Santana MD -Laboratory Work Phone: Start: 12-27-2024 End: 12-27-2024 ambulatory Candelario Santana Facility:[facility] Start: 09-25-2024 End: 09-25-[address] Candelario Santana MD -Laboratory Work Phone: Start: 09-25-2024 End: 09-25-2024 ambulatory Candelario Santana Facility:[facility] Start: 07-19-2024 ambulatory [facility] Facility:[facility] Start: 12-20-2023 End: 12-20-2023 ambulatory [facility] Work Phone: Start: 12-20-2023 End: 12-20-2023 [facility] Start: 09-21-2023 End: 09-21-2023 ambulatory [facility] Work Phone: Start: 09-21-2023 End: 09-21-2023 [facility] Start: 06-15-2023 End: 06-15-2023 Patient encounter procedure [facility] Office 3rd Flr Start: 03-17-2023 End: 03-17-[address] Candelario Santana Work Phone: [facility] Work Phone: Start: 03-17-2023 End: 03-17-[address] Candel[facility] Santana [facility] Start: 12-21-2022 End: 12-21-[address] Candelario Santana Work Phone: [facility] Work Phone: Start: 12-21-2022 End: 12-21-[address] Candelario Santana [facility] Start: 12-16-2022 End: 12-16-[address] Candelario Santana Work Phone: [facility] Work Phone: Start: 12-16-2022 End: 12-16-[address] Candelario aSntana [facility] Start: 12-09-2022 End: 12-09-[address] Candelario Santana Work Phone: [facility] Start: 11-24-2022 Non-patient / Non-visit Dr. Candelario Santana Work Phone: [facility] Start: 11-24-2022 End: 11-24-2022 Non-patient / Non-visit Dr. Candelario Santana Work Phone: [facility] Start: 11-24-2022 End: 11-24-2022 Admission to same day surgery center Dr. Candelario Santana Work Phone: [facility] Start: 11-24-2022 End: 11-24-[address] Candelario Santana Work Phone: [facility] Work Phone: Start: 09-16-2022 End: 09-16-[address] Candelario Santana Work Phone: [facility] Work Phone: Start: 09-16-2022 End: 09-16-[address] Candel[facility] Sant[facility] Start: 09-10-2022 End: 09-10-[address] Candelario Santana Work Phone: [facility] Start: 07-08-2022 End: 07-08-[address] Candelario Santana Work Phone: [facility] Work Phone: Start: 07-08-2022 End: 07-08-[address] Candelario Santana [facility] Start: 06-18-2022 End: 06-18-[address] Candelario Santana Work Phone: [facility] Start: 05-25-2022 End: 05-25-[address] Candelario Santana Work Phone: [facility] Work Phone: Start: 05-25-2022 End: 05-25-[address] Candelario Santana [facility] Start: 04-09-2022 End: 04-09-[address] Candelario Santana Work Phone: [facility] Work Phone: Start: 04-09-2022 End: 04-09-[address] Candelario Santana [facility] Start: 03-21-2022 Non-patient / Non-visit Dr. Candelario Santana Work Phone: [facility] Start: 03-20-2022 Non-patient / Non-visit Dr. Candelario Santana Work Phone: [facility] Start: 03-20-2022 End: 03-21-2022 Evaluation and management of inpatient Dr. Candelario Santana [facility] Start: 03-20-2022 Non-patient / Non-visit Dr. Candelario Santana Work Phone: [facility] Start: 12-22-2021 End: 12-22-2021 [facility] Start: 12-15-2021 End: 12-15-2021 [facility] Start: 09-24-2021 End: 09-24-2021 [facility] Start: 09-15-2021 End: 09-15-2021 [facility] Start: 03-05-2017 Ambulatory Joe Hein [facility] Start: 02-18-2017 End: 02-19-2017 Ambulatory CARYN WO ID REFERRING Facility:[facility] Start: 02-13-2017 Emergency department patient visit Abhay Ferreira [facility] Procedures Date Procedure Procedure Detail Performing [...] Work Phone: Comment on above: Performed at: [address] [id number] Director: Danielito العلي PhD, Phone: [phone] Start: 02-16-2025 Vitamin D, 25-hydroxy measurement Dr. [...] of pelvis Pelvis 1 or 2 Views [facility] Start: 03-29-2025 XR Pelvis 1 or 2 Views [facility] Start: 03-29-2025 Plain X-ray of hip Hip uni 4+ views with Pelvis [facility] Start: 03-29-2025 XR Hip Views [facility] Start: 03-29-2025 Plain X-ray of femur Femur Min 2 Views [facility] Start: 03-29-2025 XR Femur 2 Views [facility] Start: 03-18-2025 [facility] Start: 03-09-2025 Patient discharge [facility] Start: 03-02-2025 [facility] Start: 02-23-2025 Introduction of urinary catheter [facility] Start: 02-22-2025 Speech therapy assessment [facility] Start: 02-21-2025 End: 02-22-2025 Patient referral to dietitian [facility] Start: 02-21-2025 Following clinical pathway protocol [facility] Start: 02-21-2025 Recommendation to continue with treatment [facility] Start: 02-21-2025 Implementation of planned interventions [facility] Start: 02-21-2025 Referral to service [facility] Start: 02-21-2025 Urinary bladder training [facility] Start: 02-21-2025 Admission procedure [facility] Start: 02-21-2025 Measuring intake and output [facility] Start: 02-21-2025 Referral to occupational therapist [facility] Start: 02-21-2025 Vital signs measurements [facility] Start: 02-21-2025 End: 02-21-2025 [facility] Start: 02-21-2025 Patient discharge [facility] Start: 02-21-2025 Application of device [facility] Start: 02-17-2025 End: 02-17-2025 [facility] Start: 02-17-2025 Ambulation therapy management [facility] Start: 02-17-2025 Application of device [facility] Start: 02-17-2025 Exercises [facility] Start: 02-17-2025 Following clinical pathway protocol [facility] Start: 02-17-2025 Introduction of urinary catheter [facility] Start: 02-17-2025 Neurovascular assessment [facility] Start: 02-17-2025 Patient education [facility] Start: 02-17-2025 Provision of activity privileges [facility] Start: 02-17-2025 Referral to occupational therapist [facility] Start: 02-17-2025 Referral to service [facility] Start: 02-17-2025 Vital signs measurements [facility] Start: 02-17-2025 Wound care [facility] Start: 02-17-2025 Ambulation therapy management [facility] Start: 02-16-2025 Administration of blood product [facility] Start: 02-16-2025 [facility] Start: 02-16-2025 Open reduction of fracture of femur with internal fixation ORIF, Hip, Gamma Nail (Left) [facility] Start: 02-15-2025 Application of intermittent pneumatic compression device [facility] Start: 02-15-2025 Following clinical pathway protocol [facility] Start: 02-15-2025 Assessment of risk of venous thromboembolism [facility] Start: 02-15-2025 Care regimes management [facility] Start: 02-15-2025 Consultation [facility] Start: 02-15-2025 Inhalation therapy procedure [facility] Start: 02-15-2025 Insertion of catheter into peripheral vein [facility] Start: 02-15-2025 Notification of physician [facility] Start: 02-15-2025 Providing care according to standard [facility] Start: 02-15-2025 Referral to occupational therapist [facility] Start: 02-15-2025 Referral to service [facility] Start: 02-15-2025 End: 02-15-2025 [facility] Start: 02-15-2025 Verification routine [facility] Start: 02-15-2025 Admission procedure [facility] Start: 02-15-2025 Hospital admission, emergency, from emergency room, medical nature [facility] Start: 02-15-2025 [facility] Start: 02-15-2025 Patient referral to dietitian [facility] Start: 11-24-2022 Anesthesia upper gi endoscopic px ercp ANES UPR GI NDSC PX ERCP [facility] Start: 11-24-2022 Ercp remove calculi/debris biliary/pancreas duct ERCP REMOVE DUCT CALCULI [facility] Start: 11-24-2022 Ercp remove foreign body/stent biliary/panc duct ERCP REMOVE FORGN BODY DUCT [facility] Start: 11-24-2022 Ercp w/sphincterotomy/papillotomy ENDO CHOLANGIOPANCREATOGRAPH [facility] Start: 11-24-2022 Endoscopic retrograde cholangiopancreatography ERCP Biliary/Pancreas [facility] Start: 11-24-2022 RF Guidance for endoscopy of Biliary ducts and Pancreatic duct-- W contrast retrograde [facility] Start: 11-24-2022 Patient discharge [facility] Start: 03-21-2022 Patient discharge [facility] Work Phone: Start: 03-20-2022 Application of intermittent pneumatic compression device [facility] Work Phone: Start: 03-20-2022 Catheterization of vein [facility] Work Phone: Start: 03-20-2022 Following clinical pathway protocol [facility] Work Phone: Start: 03-20-2022 Assessment of risk of venous thromboembolism [facility] Work Phone: Start: 03-20-2022 Care regimes management [facility] Work Phone: Start: 03-20-2022 Fall prevention [facility] Work Phone: Start: 03-20-2022 Incentive spirometry [facility] Work Phone: Start: 03-20-2022 Inhalation therapy procedure [facility] Work Phone: Start: 03-20-2022 Insertion of catheter into peripheral vein [facility] Work Phone: Start: 03-20-2022 Introduction of urinary catheter [facility] Work Phone: Start: 03-20-2022 Measuring intake and output [facility] Work Phone: Start: 03-20-2022 Oxygen therapy [facility] Work Phone: Start: 03-20-2022 Providing care according to standard [facility] Work Phone: Start: 03-20-2022 Provision of activity privileges [facility] Work Phone: Start: 03-20-2022 Referral to gastroenterology service [facility] Work Phone: Start: 03-20-2022 Referral to service [facility] Work Phone: Start: 03-20-2022 [facility] Work Phone: Start: 03-20-2022 Verification routine [facility] Work Phone: Start: 03-20-2022 Admission procedure [facility] Work Phone: Start: 03-20-2022 [facility] Work Phone: Start: 03-20-2022 Patient referral to dietitian [facility] Work Phone: Bacteria identified in Urine by Culture Urine Culture [facility] Work Phone: Cardiac event recording [facility] DXA Bone [Mass/Area] Bone density [facility] Patient Education ED Head Injury (Adult) [facility] Work Phone: Patient referral [facility] Work Phone: [facility] Work Phone: Immunizations Immunization Date Immunization Notes Care Provider Fa [facility] 09-15-2021 influenza, injectabl e, quadrivalent, preservative free Dr. Candelario Santana MD Work Phone: [facility] 05-27-2020 influenza, injectabl e, quadrivalent, preservative free Dr. Candelario Santana MD Work Phone: [facility] 05-05-2017 influenza, injectabl e, quadrivalent, preservative free Dr. Candelario Santana MD Work Phone: [facility] 04-29-2016 influenza, injectabl e, quadrivalent, preservative free Dr. Candelario Santana MD Work Phone: [facility] 06-23-2012 influenza, seasonal, injectable, preservative free Dr. Candelario Santana MD Work Phone: [facility] Payers Date Payer Category Payer Medicare [id number] 2024 Self-pay [id number] Private Health Insurance Unknown [id number] 2.16.8 40.1.442126.3.579.2.462 Unknown [id number] 2.16.8 40.1.003336.3.579.2.462 Unknown [id number] 2.16.8 40.1.380048.3.579.2.462 Unknown [id number] 2.16.8 40.1.355876.3.579.2.462 Unknown [id number] 2.16.8 40.1.393444.3.579.2.462 Unknown [id number] 2.16.8 40.1.631422.3.579.2.462 Unknown [id number] 2.16.8 40.1.842028.3.579.2.462 Unknown [id number] 2.16.8 40.1.622679.3.579.2.462 Unknown [id number] 2.16.8 40.1.126566.3.579.2.462 Unknown [id number] 2.16.8 40.1.111405.3.579.2.462 Unknown [id number] 2.16.8 40.1.040178.3.579.2.462 Unknown [id number] 2.16.8 40.1.590078.3.579.2.462 Unknown [id number] 2.16.8 40.1.820060.3.579.2.462 Unknown [id number] 2.16.8 40.1.767355.3.579.2.462 Unknown [id number] 2.16.8 40.1.588362.3.579.2.462 Unknown [id number] 2.16.8 40.1.132087.3.579.2.462 Unknown [id number] 2.16.8 40.1.176907.3.579.2.462 Unknown [id number] 2.16.8 40.1.819624.3.579.2.462 Unknown [id number] 2.16.8 40.1.814733.3.579.2.462 Unknown [id number] 2.16.8 40.1.914822.3.579.2.462 Unknown [id number] 2.16.8 40.1.882171.3.579.2.462 Unknown [id number] 2.16.8 40.1.513100.3.579.2.462 Unknown [id number] 2.16.8 40.1.431306.3.579.2.462 Unknown [id number] 2.16.8 40.1.020435.3.579.2.462 Unknown [id number] 2.16.8 40.1.640259.3.579.2.462 Unknown [id number] 2.16.8 40.1.987936.3.579.2.462 Unknown [id number] 2.16.8 40.1.493644.3.579.2.462 Unknown [id number] 2.16.8 40.1.496644.3.579.2.462 Unknown [id number] 2.16.8 40.1.828894.3.579.2.462 Unknown [id number] 2.16.8 40.1.024728.3.579.2.462 Unknown [id number] 2.16.8 40.1.999035.3.579.2.462 Unknown [id number] 2.16.8 40.1.101642.3.579.2.462 Unknown 1998 2.16.8 40.1.282273.3.579.2.462 Unknown [id number] 2.16.8 40.1.744161.3.579.2.462 Unknown [id number] 2.16.8 40.1.857049.3.579.2.462 Unknown [id number] 2.16.8 40.1.108188.3.579.2.462 Unknown [id number] 2.16.8 40.1.940320.3.579.2.462 Unknown [id number] 2.16.8 40.1.857962.3.579.2.462 Unknown [id number] 2.16.8 40.1.669611.3.579.2.462 Unknown [id number] 2.16.8 40.1.745559.3.579.2.462 Unknown [id number] 2.16.8 40.1.214413.3.579.2.462 Unknown [id number] 2.16.8 40.1.233556.3.579.2.462 Unknown [id number] 2.16.8 40.1.565868.3.579.2.462 Social History Date Type Detail Facility Start: 10-22-2020 End: 12-09-2022 Tobacco smoking status NHIS Unknown if ever smoked [facility] Start: 02-13-2017 None [facility] Start: 10-22-2020 Non-smoker [facility] Start: 1945 Sex Assigned At Female [facility] Start: 12-09-2022 End: 03-18-2025 Tobacco smoking status NHIS Never smoked tobacco (finding) [facility] NEGATED: Highlighted row [facility] Medical Equipment Procedure Code Equipment Code Equipment Origin al Text Equipment Identifier Dates ORIF, hip, using Gamma nail ([id number]) Orthopaedic bone screw, non-bioabsorbable, sterile ()[id number] [id number] FDA Start: 02-16-2025 ORIF, hip, using Gamma nail ([id number]) Orthopaedic bone screw, non-bioabsorbable, sterile ()[id number] 1D4 FDA Start: 02-16-2025 ORIF, hip, using Gamma nail Femur intramedullary nail ()[id number] F32 FDA Start: 02-16-2025 ORIF, hip, using Gamma nail Orthopaedic bone screw (non-sliding) ()[id number] 1C8 FDA Start: 02-16-2025 ERCP (endoscopic retrograde [...] Activity Abili ty With Assist of 2 [facility] Work Phone: 03-09-2025 Functional status Ambulates;Bathroom Priv ilege [facility] Work Phone: 02-21-2025 Functional status Ambulates;Bedr est;Bathroom Privilege [facility] Work Phone: 03-21-2022 Functional status Ambulates [facility] Work Phone: Mental Status Date Assessment Result Facility 03-09-2025 Cognitive function Voice/Name [facility] Work Phone: 02-21-2025 Cognitive function Voice/Name [facility] Work Phone: 11-24-2022 Cognitive function Voice/Name [facility] Work Phone: 11-24-2022 Cognitive function Patient Ren ramirez Person;Place;Time [facility] Work Phone: 03-21-2022 Cognitive function Appropriate;Cooperativ e [facility] Work Phone: 03-20-2022 Cognitive function Awake;Alert;A ppropriate;Follo ws Commands [facility] Work Phone: Clinical Notes 11-24-2022 to 07-03-2025 Note Date & Type Note Facility 07-03-2025 Note [facility] 03-18-2025 Discharge summary Note Date/Time March 18, 2025 11:39am [facility] Medical Records Department [address] [place] [address] Emergency Department Summary 03/18/25 MR#: [id number] Acct: [id number] Name: SHASHI OSWALD Rep #:[id number] : 1945 79 From: Cj Ordonez MD [...] is a 79-year-old woman. She presents from [facility]. She has history of Parkinson disease [...] bisacodyl 10 mg rectal suppository 10 mg MD X1 PRN Con stipation #1 ea 03/08/25 [...] IMPRESSION: No acute intracranial abnormalities. Reading Location: [facility] C-minus of the head reveals no evidence of fracture, subdural hematoma, epiduralhematoma, subarachnoid hemorrhage or traumatic contusion. There is no fluid noted in the sinuses per awaiting formal read by radiologist, 1103. The CT report was reviewed at 1137. Plan is to discharge back to [facility]. Discharge Plan Triage Chief Complaint: Fall [...] 0RF bisacodyl 10 mg Suppository 10 mg MD X1 PRN (Reason: Constipation) Qty: 1 0RF [...] next 3 doses of Eliquis Print Language: Syrian Disposition Disposition: Home, Self Care What to do if you have Problems For any increased pain, shortness of breath, bleeding, nausea or vomiting, chestpain, or any unexpected problems, contact your Primary Care Provider. Call [facility] ([phone]) or report to the closest Emergency Room. Call 911 if necessary. 03/18/25 1139 <Electronically signed by Cj Ordonez MD> Cosigner Signature (if applicable): CC: Dr. Candelario Santana MD ~ Signed [facility] Work Phone: 1(900) 188-198007-27-2025 Discharge summary [facility] Medical Records Department [address] [place] [address] Emergency Department Summary 03/18/25 MR#: [id number] Acct: [id number] Name: SHASHI OSWALD Rep #:[id number] : 1945 79 From: Cj Ordonez MD [...] is a 79-year-old woman. She presents from [facility]. She has history of Parkinson disease [...] Prior similar symptoms: Yes Recent Illness/Hospitalization: No [facility] Medical History Cognitive dysfunction History of hemorrhoids [...] bisacodyl 10 mg rectal suppository 10 mg MD X1 PRN Con stipation #1 ea 03/08/25 [...] oriented x3 and CN's II-XII intact bilaterally [place] Coma Scale: document GCS findings Spontaneous Obeys [...] IMPRESSION: No acute intracranial abnormalities. Reading Location: [facility] C-minus of the head reveals no evidence of fracture, subdural hematoma, epiduralhematoma, subarachnoid hemorrhage or traumatic contusion. There is no fluid noted in the sinuses per awaiting formal read by radiologist, 1103. The CT report was reviewed at 1137. Plan is to discharge back to [facility]. Discharge Plan Triage Chief Complaint: Fall ED Provider: Cj Ordonez Dx/Rx/DC Orders Clinical Impression: CHI (closed head injury), Debility, Anticoagulant long-term use, Injury due to fall, [place] coma scale score 13-15, at arrival to [...] 0RF bisacodyl 10 mg Suppository 10 mg MD X1 PRN (Reason: Constipation) Qty: 1 0RF [...] next 3 doses of Eliquis Print Language: Syrian Disposition Disposition: Home, Self Care What to do if you have Problems For any increased pain, shortness of breath, bleeding, nausea or vomiting, chestpain, or any unexpected problems, contact your Primary Care Provider. Call [facility] ([phone]) or report tothe closest Emergency Room. Call 911 if necessary. 03/18/25 113 Cosigner Signature (if applicable): CC: Dr. Candelario Santana MD ~ Signed [facility]07-27-2025 Radiology Diagnostic study note [facility] Imaging Services [address] [place], [place] [address] Brain/Head without Contrast MR#: [id number] Acct: [id number] Name: SHASHI OSWALD Rep #: [id number] : 1945 F 79 From: Cody Kim MD PCP: Dr. Candelario Santana MD Status: REG E R Study:Brain/Head without Contrast Date of Exa m: 03/18/25 Exam# [id number] Ordering Dr: Wiliam Ordonez MD PROCEDURE: BRAIN/HEAD [...] IMPRESSION: No acute intracranial abnormalities. Reading Location: [facility] CC: Dr. Candelario Santana MD; Dr. Cj Ordonez MD ~ Opinion Polls Survey Worker: Signed [facility]07-18-2025 Discharge summary Author Katie Bah [facility] Note Date/Time March 09, 2025 11:0 3am [facility] Medical Records Department [address] [place] [address] Discharge Summary 03/08/25 1657 MR#: [id number] Acct: [id number] Name: SHASHI OSWALD Rep #:[id number] : 1945 79 From: Katie Bah PCP: Dr. Candelario Santana MD Status:ADM I N Location: [place] [address] Providers Date of Admission: 02/21/25 Date of [...] status: with other specified complication Diabetes mellitus ferry terminal supervisor insulin use: without prison use Qualified Code(s): E11.69 - Type 2 [...] Recommend she follow up with neurology [place] from [place]. (10) Cognitive dysfunction: Status: Chronic [...] week. Will recommend an event monitor at [place]. (16) Orthostatic hypotension: Status: Chronic Code(s): I95.1 [...] from in rehab. Plan 1. DC to [facility] on 03/09 for additional therapy - may need LT placement 2. Event monitor at [place]. 3. DEXA in the near future. 4. [...] bisacodyl 10 mg rectal suppository 10 mg MD X1 PRN Constipation #1 ea 03/08/25 calcium [...] who presented to the emergency department at [facility] on 02/15/2025 complaining of left hip [...] to the acute inpt rehab unit at [facility] on 02/21/25 for 3 hours of therapydaily [...] put in for an event monitor at [place]. We discovered that there is a big [...] transfer. Shashi was discharged on 03/09/25 to [facility] for additional therapy. A Follow-up appointment has been made with Dr. Chacon from orthopedics and she will also need to follow up with PCP (Dr. Santana) following [facility]. We have tried to get an [...] 0RF bisacodyl 10 mg Suppository 10 mg MD X1 PRN (Reason: Constipation) Qty: 1 0RF [...] Recorder Preventi (Urgent) Timeframe: 3 Days Location: [facility] Ordered By: Dr. Katie Bah Referrals / Follow Up: Matt Chacon MD [Med Staff - Active Staff] - 03/22/25 3:30 pm Shon Lozada MD [Non-Staff -Ordering Privileges] - Disposition Disposition (needs filled in before D/C Order can be placed): [facility] Facility Charges/Coding Visit Charges Inpatient E&M: 34938 Disch Hosp >30min 03/09/25 1103 <Electronically signed by Katie Bah DO> Cosigner Signature (if applicable): CC: Dr. Matt Chacon MD; Dr. Katie Bah DO; Dr. Shon Lozada MD; Dr. Candelario Santana MD~ Signed [facility] Work Phone: 1(125) 876-460007-18-2025 Discharge summary [facility] Medical Records Department [address] [place] [address] Discharge Summary 03/08/25 1657 MR#: [id number] Acct: [id number] Name: SHASHI OSWALD Rep #:[id number] : 1945 79 From: Katie Bah DO PCP: Dr. Candelario Santana MD Status:ADM I N Location: [place] [address] Providers Date of Admission: 02/21/25 Date of [...] status: with other specified complication Diabetes mellitus ferry terminal supervisor insulin use: without ferry terminal supervisor use Qualified Code(s): E11.69 - Type 2 [...] Recommend she follow up with neurology [place]. (10) Cognitive dysfunction: Status: Chronic [...] week. Will recommend an event monitor at [place]. (16) Orthostatic hypotension: Status: Chronic Code(s): I95.1 [...] from in rehab. Plan 1. DC to [facility] on 03/09 for additional therapy - may need LT placement 2. Event monitor at [place]. 3. DEXA in the near future. 4. [...] bisacodyl 10 mg rectal suppository 10 mg MD X1 PRN Constipation #1 ea 03/08/25 calcium [...] who presented to the emergency department at [facility] on 02/15/2025 complaining of left hip [...] to the acute inpt rehab unit at [facility] on 02/21/25 for 3 hours of therapydaily to restore function/independence at or near her level prior to the fall. Shashi has made steady progress while on rehab. Recovery is complicated by poor cognitive function. BS's were elevated at admission to rehab. She was started on GLucophage and the BS's are well controlled on GLucophage 750 mg Q AMat [place]. No BS's > 180 and no hypoglycemia. [...] put in for an event monitor at [place]. We discovered that there is a big [...] transfer. Shashi was discharged on 03/09/25 to [facility] for additional therapy. A Follow-up appointment has been made with Dr. Chacon from orthopedics and she will also need to follow up with PCP (Dr. Santana) following [facility]. We have tried to get an [...] 0RF bisacodyl 10 mg Suppository 10 mg MD X1 PRN (Reason: Constipation) Qty: 1 0RF [...] Recorder Preventi (Urgent) Timeframe: 3 Days Location: [facility] Ordered By: Dr. Katie Bah Referrals / Follow Up: Matt Chacon MD [Med Staff - Active Staff] - 03/22/25 3:30 pm Shno Lozada MD [Non-Staff -Ordering Privileges] - Disposition Disposition (needs filled in before D/C Order can be placed): [facility] Facility Charges/Coding Visit Charges Inpatient E&M: 54411 Disch Hosp >30min 03/09/25 1103 Cosigner Signature (if applicable): CC: Dr. Matt Chacon MD; Dr. Katie Bah DO; Dr. Shon Lozada MD; Dr. Candelario Santana MD~ Signed [facility]07-17-2025 Discharge summary Author Katie Bah [facility] Note Date/Time March 08, 2025 4:57 pm [facility] Medical Records Department [address] [place] [address] Transfer to [facility] Care MR#: [id number] Acct: [id number] Name: SHASHI OSWALD Rep #:[id number] : 1945 79 From: Katie Bah DO PCP: Dr. Candelario Santana MD Status:ADM I N Certification of patient admission REQUIRED AT TIME OF ADMISSION. I CERTIFY THAT POST-HOSPITAL ECF SERVICES ARE REQUIRED TO BE GIVEN ON AN IN-PATIENT BASIS BECAUSE OF THE ABOVE NAMED PATIENT'S NEED FOR ALF CARE ON A CONTINUING BASIS FOR THE CONDITION(S) FOR WHICH HE/SHE WAS RECEIVING IN-PATIENT HOSPITAL SERVICES PRIOR TO HIS/HER TRANSFER TO THE [facility]. 03/08/251656<Electronically signed by Katie Bah DO> Diet [...] Recommend she follow up with neurology [place]. Comment: Diagnosed by Dr. Santana [...] week. Will recommend an event monitor at [place]. (16) Orthostatic hypotension: Status: Chronic Code(s): I95.1 [...] an outpatient DEXA Plan 1. DC to [facility] on 03/09 for additional [...] 0RF bisacodyl 10 mg Suppository 10 mg MD X1 PRN (Reason: Constipation) Qty: 1 0RF [...] Recorder Preventi (Urgent) Timeframe: 3 Days Location: [facility] Ordered By: Dr. Katie Bah Referrals [...] status: with other specified complication Diabetes mellitus prison insulin use: without prison use Qualified Code(s): E11.69 - Type 2 [...] Age-related osteoporosis without current pathological fracture 03/08/25 2517 <Electronically signed by Katie Bah DO> Cosigner Signature (if applicable): CC: Dr. Matt Chacon MD; Dr. Shon Lozada MD; Dr. Candelario Santana MD ~ [facility] Work Phone: 1(435) 170-825207-17-2025 Discharge summary [facility] Medical Records Department [address] [place] [address] Transfer to [facility] Care MR#: [id number] Acct: [id number] Name: SHASHI OSWALD Rep #:[id number] : 1945 79 From: Katie Bah DO PCP: Dr. Candelario Santana MD Status:ADM I N Certification of patient admission REQUIRED AT TIME OF ADMISSION. I CERTIFY THAT POST-HOSPITAL F SERVICES ARE REQUIRED TO BE GIVEN ON AN IN-PATIENT BASIS BECAUSE OF THE ABOVE NAMED PATIENT'S NEED FOR ALF CARE ON A CONTINUING BASIS FOR THE CONDITION(S) FOR WHICH HE/SHE WAS RECEIVING IN-PATIENT HOSPITAL SERVICES PRIOR TO HIS/HER TRANSFER TO THE [facility]. 03/08/25 1657 Diet Diet Order/Speech Therapy: INPATIENT [...] Left hip cephalomedullary nailing 02/16/[address] Chcaon (4) Hyponatremia: Status: Acute Code(s): E87.1 - [...] Recommend she follow up with neurology [place]. Comment: Diagnosed by Dr. Santana [...] week. Will recommend an event monitor at [place]. (16) Orthostatic hypotension: Status: Chronic Code(s): I95.1 [...] an outpatient DEXA Plan 1. DC to [facility] on 03/09 for additional therapy - may need LT placement 2. Event monitor at [place]. 3. DEXA in the near future. 4. [...] internal fixation with cephalomedullary nailing by Dr. Chcaon on 02/16/2025.) Type of Care/Length of Stay [...] 0RF bisacodyl 10 mg Suppository 10 mg MD X1 PRN (Reason: Constipation) Qty: 1 0RF [...] Recorder Preventi (Urgent) Timeframe: 3 Days Location: [facility] Ordered By: Dr. Katie Bah Referrals [...] status: with other specified complication Diabetes mellitus ferry terminal supervisor insulin use: without ferry terminal supervisor use Qualified Code(s): E11.69 - Type 2 [...] Age-related osteoporosis without current pathological fracture 03/08/25 9170 Cosigner Signature (if applicable): CC: Dr. Matt Chacon MD; Dr. Shon Lozada MD; Dr. Candelario Santana MD ~ [facility]07-17-2025 [facility]07-15-2025 Progress note Author Katie Bah [facility] Note Date/Time March 06, 2025 4:11 pm [facility] Medical Records Department [address] [place] [address] Progress Note 03/06/25 1150 MR#: [id number] Acct: [id number] Name: SHASHI OSWALD Rep #:[id number] : 1945 79 From: Katie Nash Olvin DELEON PCP: Dr. Candelario Santana MD Status:ADM I N Location: [place] [address] Subjective Subjective Afebrile VSS -mild systolic hypertension. [...] status: with other specified complication Diabetes mellitus ferry terminal supervisor insulin use: without ferry terminal supervisor use Qualified Code(s): E11.69 - Type 2 [...] therapy 2. Plan discharge for Wednesday to halfway 3. Hold Procardia if the systolic is less than 110 4. Continue metoprolol 25 mg twice daily in light of paroxysmal atrial fibrillation while on rehab. Plan event monitor at discharge. Encouraged her to increase her fluid intake today. Charges/Coding Visit Charges Inpatient E&M: 75431 Subs Hosp L1 03/06/25 1611 <Electronically signed by Katie Bah DO> Katie Bah DO Cosigner Signature (if applicable): CC: ~ Signed [facility] Work Phone: 1(912) 442-446107-15-2025 Progress note [facility] Medical Records Department [address] [place] [address] Progress Note 03/06/25 1150 MR#: [id number] Acct: [id number] Name: SHASHI OSWALD Rep #:[id number] : 1945 79 From: Katie Bah DO PCP: Dr. Candelario Santana MD Status:ADM I N Location: [place] [address] Subjective Subjective Afebrile VSS -mild systolic hypertension. [...] status: with other specified complication Diabetes mellitus prison insulin use: without ferry terminal supervisor use Qualified Code(s): E11.69 - Type 2 [...] therapy 2. Plan discharge for Wednesday to halfway 3. Hold Procardia if the systolic is less than 110 4. Continue metoprolol 25 mg twice daily in light of paroxysmal atrial fibrillation while on rehab.Plan event monitor at discharge. Encouraged her to increase her fluid intake today. Charges/Coding Visit Charges Inpatient E&M: [address] [facility] Hosp 03/06/25 1611 Katie Bravoigner Signature (if applicable): CC: ~ Signed [facility]07-14-2025 Progress note Author Katie [facility] Note Date/Time March 05, 2025 2:59 pm [facility] Medical Records Department [address] [place] [address] Progress Note 03/05/25 1138 MR#: [id number] Acct: [id number] Name: SHASHI OSWALD Rep #:[id number] : 1945 79 From: Katie Bha DO PCP: Dr. Candelario Santana MD Status:ADM I N Location: [place] [address] Subjective Subjective Shashi was seen on team [...] status: with other specified complication Diabetes mellitus prison insulin use: without ferry terminal supervisor use Qualified Code(s): E11.69 - Type 2 [...] a holtor monitor or event monitor at [place]. PLAN: Plan 1. Continue therapy 2. Increase the tramadol to 3 times daily at 7 AM, 2 PM and 9 PM. Continue acetaminophen and the arthritis compounded cream to the knee. 3. Continue to monitor the blood pressure. It seems to be improving with the addition of nicardipine to her drug regimen. 4. Plan is for halfway at discharge as Ash does not feel he can adequately care for her at home at this point. The patient agrees with this andis willing to go to a halfway facility. 5. Will need a TSH and T4 in 6 weeks. 6. Recommend follow-up with neurology for cognitive impairment. Charges/Coding Visit Charges Inpatient E&M: 64486 Subs Hosp L2 03/05/25 7180 <Electronically signed by Katie Bah DO> Katie Chen Signature (if applicable): CC: ~ Signed [facility] Work Phone: 1(927) 937-680507-14-2025 Progress note Author Jo Vizcarra [facility] Note Date/Time March 05, 2025 1:25 pm [facility] Medical Records Department [address] [place] [address] [place] [address] Progress Note - Orthopedic 03/05/25 1318 MR#: [id number] Acct: [id number] Name: SHASHI OSWALD Rep #:[id number] : 1945 79 From: Jo HADLEY PCP: Dr. Candelario Santana MD Status:ADM I N Location: [place] [address] Subjective Subjective Postop 2 weeks status post left hip long gamma nail for IT plus subtrochanteric fracture. Patient was seen today in the rehab unit. Patient was working with physical therapy upon entry. Patient continues to do well with very minimal pain. Therapy reports that she is walking approximately 20 feet at a time. Bowie were removed last week. Patient says that [...] Cosigner Signature (if applicable): CC: ~ Signed [facility] Work Phone: 1(834) 377-529407-14-2025 Progress note [facility] Medical Records Department [address] [place] [address] Progress Note 03/05/25 1138 MR#: [id number] Acct: [id number] Name: SHASHI OSWALD Rep #:[id number] : 1945 79 From: Katie Bah DO PCP: Dr. Candelario Santana MD Status:ADM I N Location: [place] [address] Subjective Subjective Shashi was seen on team [...] status: with other specified complication Diabetes mellitus ferry terminal supervisor insulin use: without ferry terminal supervisor use Qualified Code(s): E11.69 - Type 2 [...] needa holtor monitor or event monitor at [place]. PLAN: Plan 1. Continue therapy 2. Increase the tramadol to 3 times daily at 7 AM, 2 PM and 9 PM. Continue acetaminophen and the arthritis compounded cream to the knee. 3. Continue to monitor the blood pressure. It seems to be improving with the addition of nicardipine to her drug regimen. 4. Plan is for halfway at discharge as Ash does not feel he can adequately care for her athome at this point. The patient agrees with this andis willing to go to a halfway facility. 5. Will need a TSH and T4 in 6 weeks. 6. Recommend follow-up with neurology for cognitive impairment. Charges/Coding Visit Charges Inpatient E&M: 41749 Subs Hosp L2 03/05/25 9232 Katie Bah DO Cosigner Signature (if applicable): CC: ~ Signed [facility]07-14-2025 Progress note [facility] Medical Records Department [address] [place] [address] Progress Note - Orthopedic 03/05/25 1318 MR#: [id number] Acct: [id number] Name: SHASHI OSWALD Rep #:[id number] : 1945 79 From: Jo HADLEY PCP: Dr. Candelario Santana MD Status:ADM I N Location: [place] [address]-1 Subjective Subjective Postop 2 weeks status post [...] Cosigner Signature (if applicable): CC: ~ Signed [facility]07-11-2025 Radiology Diagnostic study note [facility] Imaging Services [address] [place] [address] Femur Min 2 Views MR#: [id number] Acct: [id number] Name: SHASHI OSWALD Rep #: [id number] : 1945 79 From: Nicholas Hope MD PCP: Dr. Candelario Santana MD Status: ADM I N Study:Femur Min 2 Views Date of Exam: Exam# [id number] Ordering Dr: Ronal Chacon MD PROCEDURE: FEMUR MIN 2 VIEWS 03/02/2025 REASON FOR EXAM: STATUS POST LONG GAMMA NAIL TECHNIQUE: FEMUR MIN 2 VIEWS COMPARISON: None. FINDINGS: Left femoral internal fixation spanning a left proximal femoral fracture. No evidence of acute complication. RAD/Femur Min 2 Views IMPRESSION: Intact left femoral internal fixation. Reading Location: [id number] CC: Dr. Matt Chacon MD; Dr. Candelario Santana MD ~ Opinion Polls Survey Worker: Signed [facility]07-11-2025 Radiology Diagnostic study note [facility] Imaging Services [address] [place], [place] [id number] Pelvis 1 or 2 Views MR#: [id number] Acct: [id number] Name: SHASHI OSWALD Rep #: [id number] : 1945 F 79 From: Nicholas Hope MD PCP: Dr. Candelario Santana MD Status: ADM I N Study:Pelvis 1 or 2 Views Date of Exam: 03/02/25 Exam# [id number] Ordering Dr: Ronal Chacon MD PROCEDURE: PELVIS [...] IMPRESSION: Left femoral internal fixation. Reading Location: [id number] CC: Dr. Matt Chacon MD; Dr. Candelario Santana MD ~ Opinion Polls Survey Worker: Signed [facility]07-10-2025 Progress note Author Katie Bah [facility] Note Date/Time March 01, 2025 5:02 pm [facility] Medical Records Department [address] [place] [address] Progress Note 03/01/25 1033 MR#: [id number] Acct: [id number] Name: SHASHI OSWALD Rep #:[id number] : 1945 79 From: Katie ArjunSimona Bah DO PCP: Dr. Candelario Santana MD Status:ADM I N Location: [place] [address] Subjective Subjective Afebrile. The blood pressure over [...] status: with other specified complication Diabetes mellitus ferry terminal supervisor insulin use: without ferry terminal supervisor use Qualified Code(s): E11.69 - Type 2 [...] extremity today. Charges/Coding Visit Charges Inpatient E&M: 75569 Subs Hosp L1 03/01/25 1143 <Electronically signed by Katie Bah DO> Katie Bah DO Cosigner Signature (if applicable): CC: ~ Signed ADDENDUM by Dr. Katie Bah DO on 03/01/25 at 1702 Addendum Venous ultrasound of the left lower extremity shows deep veins to be patent and compressible segmentally. 03/01/25 1702 <Electronically signed by Kaite partida DO> Date _ Katie Bah DO Cosbennyer Signature (if applicable): Date cc: ~* Signed [facility] Work Phone: 1(546) 258-881507-10-2025 Progress note [facility] Medical Records Department [address] [place] [address] Progress Note 03/01/25 1033 MR#: [id number] Acct: [id number] Name: SHASHI OSWALD Rep #:[id number] : 1945 79 From: Katie Bah DO PCP: Dr. Candelario Santana MD Status:ADM I N Location: [place] [address]-1 Subjective Subjective Afebrile. The blood pressure over [...] status: with other specified complication Diabetes mellitus ferry terminal supervisor insulin use: without prison use Qualified Code(s): E11.69 - Type 2 [...] extremity today. Charges/Coding Visit Charges Inpatient E&M: 25462 Subs Hosp L1 03/01/25 1143 Katie Bah DO Cosigner Signature (if applicable): CC: ~ Signed ADDENDUM by Dr. Katie Bah DO on 03/01/25 at 1702 Addendum Venous ultrasound of the left lower extremity shows deep veins to be patent and compressible segmentally. 03/01/25 1702 ti DO> Date _ Katie Bah DO Cosigner Signature (if applicable): Date cc: ~* Signed [facility]07-09-2025 Progress note Author Katie Bah [facility] Note Date/Time February 28, 2025 11:36 am [facility] Medical Records Department [address] [place] [address] Progress Note 02/28/25911 MR#: [id number] Acct: [id number] Name: SHASHI OSWALD Rep #:[id number] : 1945 79 From: Katie Bah DO PCP: Dr. Candelario Santana MD Status:ADM I N Location: [place] [address] Subjective Subjective Finished 5 days of Macrobid [...] status: with other specified complication Diabetes mellitus prison insulin use: without ferry terminal supervisor use Qualified Code(s): E11.69 - Type 2 [...] as OP. Charges/Coding Visit Charges Inpatient E&M: 47289 Subs Hosp L1 02/28/25 1136 <Electronically signed by Katie Bah DO> Katie Bah DO Cosigner Signature (if applicable): CC: ~ Signed [facility] Work Phone: 1(121) 447-894807-09-2025 Progress note [facility] Medical Records Department [address] [place] [address] Progress Note 02/28/25 0912 MR#: [id number] Acct: [id number] Name: SHASHI OSWALD Rep #:[id number] : 1945 79 From: Katie Bah DO PCP: Dr. Candelario Santana MD Status:ADM I N Location: [place] [address] Subjective Subjective Finished 5 days of Macrobid [...] status: with other specified complication Diabetes mellitus prison insulin use: without ferry terminal supervisor use Qualified Code(s): E11.69 - Type 2 [...] as OP. Charges/Coding Visit Charges Inpatient E&M: 96497 Subs Hosp L1 02/28/25 1136 Katie Bah DO Cosigner Signature (if applicable): CC: ~ Signed [facility]07-07-2025 Progress note Author Katie Bah [facility] Note Date/Time February 26, 2025 3:37p m [facility] Medical Records Department [address] [place] [address] Progress Note 02/26/25 0857 MR#: [id number] Acct: [id number] Name: SHAHSI OSWALD Rep #:[id number] : 1945 79 From: Katie Nash Judyjaquan DELEON PCP: Dr. Candelario Santana MD Status:ADM I N Location: [place] [address] Subjective Subjective Shashi was seen on team [...] status: with other specified complication Diabetes mellitus ferry terminal supervisor insulin use: without prison use Qualified Code(s): E11.69 - Type 2 [...] will also need an event monitor [place]. PLAN: Plan 1. Continue therapy 2. Finish [...] She [place] from [place]. She has had PAF while on rehab. 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 Also will need a carotid US (can be done as an OP) for loud R carotid bruit.....vs radiation of MM Charges/Coding Visit Charges Inpatient E&M: 19571 Subs Hosp L2 02/26/25 1537 <Electronically signed by Katie Bah DO> Katie Bah DO Cosigner Signature (if applicable): CC: ~ Signed [facility] Work Phone: 1(820) 997-292707-07-2025 Progress note [facility] Medical Records Department [address] [place] [address] Progress Note 02/26/25 0857 MR#: [id number] Acct: [id number] Name: SHASHI OSWALD Rep #:[id number] : 1945 79 From: Katie Bah DO PCP: Dr. Candelario Santana MD Status:ADM I N Location: [place] [address] Subjective Subjective Shashi was seen on team [...] status: with other specified complication Diabetes mellitus prison insulin use: without ferry terminal supervisor use Qualified Code(s): E11.69 - Type 2 [...] will also need an event monitor [place]. PLAN: Plan 1. Continue therapy 2. Finish [...] She will need [place] monitor [place] from [place]. She has had PAF while on rehab. 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 Also will need a carotid US (can be done as an OP) for loud R carotid bruit.....vs radiation of MM Charges/Coding Visit Charges Inpatient E&M: [address] [facility] Hosp L2 02/26/25 1537 Katie Bah DO Cosigner Signature (if applicable): CC: ~ Signed [facility]07-04-2025 Progress note Author Katie Bah [facility] Note Date/Time February 23, 2025 1:26p m [facility] Medical Records Department [address] [place] [address] Progress Note 02/23/25 1253 MR#: [id number] Acct: [id number] Name: SHASHI OSWALD Rep #:[id number] : 1945 79 From: Katie Bah DO PCP: Dr. Candelario Santana MD Status:ADM I N Location: [place] [address] Subjective Subjective Afebrile VSS -blood pressure since [...] Clarity Cloudy, Urine pH 6.5, Ur Specific [place] 1.010, Urine Protein 30 H, Urine Glucose [...] Diabetes mellitus, type 2: QUALIFIERS: Diabetes mellitus ferry terminal supervisor insulin use: without prison use Diabetes mellitus complication status: with other [...] Has not had a CT brain at [facility] in the past. TSH is high and [...] is 98. Charges/Coding Visit Charges Inpatient E&M: 24214 Subs Hosp L1 02/23/25 1321 <Electronically signed [...] Signature (if applicable): Date cc: ~* Signed [facility] Work Phone: 1(988) 520-598007-04-2025 History and physical note Author Katie Bah [facility] Note Date/Time February 23, 2025 12:50 pm [facility] Medical Records Department [address] [place] [address] Post Admission Physician Danial 02/23/25 1242 MR#: [id number] Acct: [id number] Name: SHASHI OSWALD Rep #:[id number] : 1945 79 From: Katie Bah DO PCP: Dr. Candelario Santana MD Status:ADM I N Location: [place] [address] Admission Information Primary Diagnosis:: Debility secondary to [...] Skin integrity and Medication Management Patient needs International Marketing Coordinator/ Case Management for: Discharge Planning, Arranging Home [...] ) Was Preadmission Assessment Accurate?: Yes 02/23/25 2660 <Electronically signed by Katie Bah DO> Cosigner Signature (if applicable): CC: ~ Signed [facility] Work Phone: 1(164) 336-591807-04-2025 History and physical note Author Katie Bah [facility] Note Date/Time February 23, 2025 12:42 pm [facility] Medical Records Department [address] [place] [address] History & Physical Exam 02/22/25 0945 MR#: [id number] Acct: [id number] Name: SHASHI OSWALD Rep #:[id number] : 1945 79 From: Katie Bah DO PCP: Dr. Candelario Santana MD Status:ADM I N Location: [place] [address] HPI - General General Date of Admission: [...] who presented to the emergency department at [facility] on 02/15/2025 complaining of left hip [...] to the acute inpt rehab unit at [facility] on 02/21/25 for 3 hours of therapydaily [...] this institution. Has not seen a neurologist. [facility] Medical History Hypothyroidism Diabetes mellitus, type 2 [...] % (Auto) 65.0, Lymph % (Auto) 23.7, Bent% (Auto) 7.2, Eos % (Auto) 3.0, Baso [...] the AV. Charges/Coding Visit Charges Inpatient E&M: 42471 Init Hosp L2 02/23/25 1242 <Electronically signed by Katie Bah DO> Cosigner Signature (if applicable): CC: Dr. Matt Chacon MD; Dr. Katie Bah DO; Dr. Candelario Santana MD~ Signed [facility] Work Phone: 1(169) 738-694107-04-2025 Progress note [facility] Medical Records Department [address] [place] [address] Progress Note 02/23/25 1253 MR#: [id number] Acct: [id number] Name: SHASHI OSWALD Rep #:[id number] : 1945 79 From: Katie Bah DO PCP: Dr. Candelario Santana MD Status:ADM I N Location: [place] [address] Subjective Subjective Afebrile VSS -blood pressure since [...] Clarity Cloudy, Urine pH 6.5, Ur Specific [place] 1.010, Urine Protein 30 H, Urine Glucose [...] Diabetes mellitus, type 2: QUALIFIERS: Diabetes mellitus prison insulin use: without prison use Diabetes mellitus complication status: with other [...] Has not had a CT brain at [facility] in the past. TSH is high and [...] is 98. Charges/Coding Visit Charges Inpatient E&M: 88882 Subs Hosp L1 02/23/25 1321 Katie Bah [...] Signature (if applicable): Date cc: ~* Signed [facility]07-04-2025 History and physical note [facility] Medical Records Department [address] [place] [address] Post Admission Physician Danial 02/23/25 1242 MR#: [id number] Acct: [id number] Name: SHASHI OSWALD Rep #:[id number] : 1945 79 From: Katie Bah DO PCP: Dr. Candelario Santana MD Status:ADM I N Location: [place] [address] Admission Information Primary Diagnosis:: Debility secondary to [...] Skin integrity and Medication Management Patient needs International Marketing Coordinator/ Case Management for: Discharge Planning, Arranging Home [...] Cosigner Signature (if applicable): CC: ~ Signed [facility]07-04-2025 History and physical note [facility] Medical Records Department [address] [place] [address] History & Physical Exam 02/22/25 0945 MR#: [id number] Acct: [id number] Name: SHASHI OSWALD Rep #:[id number] : 1945 79 From: Katie Bah DO PCP: Dr. Candelario Santana MD Status:ADM I N Location: [place] [address] HPI - General General Date of Admission: [...] who presented to the emergency department at [facility] on 02/15/2025 complaining of left hip [...] to the acute inpt rehab unit at [facility] on 02/21/25 for 3 hours of therapydaily [...] able to provide me with some history. sAh tells me that his mother has problems [...] at this institution. Has not rajendra neurologist. [facility] Medical History Hypothyroidism Diabetes mellitus, type 2 [...] Neut% (Auto) 65.0, Lymph % (Auto) 23.7, Bent% (Auto) 7.2, Eos % (Auto) 3.0, Baso [...] the AV. Charges/Coding Visit Charges Inpatient E&M: 36404 Init Hosp L2 02/23/25 1242 Cosigner Signature (if applicable): CC: Dr. Matt Chacon MD; Dr. Katie Bah, DO; Dr. Candelario Santana MD~ Signed [facility]07-03-2025 [facility]07-02-2025 Hospital Discharge instructionsAdditional Instructions 1. WBAT LLE 2. Eliquis 2.5 mg BID x 30 days then stop 3. Dressing changes per ortho 4. Ortho F/U in 2 weeks Date of Discharge: 02/21/25[facility] Work Phone: 1(745) 486-196307-02-2025 Consult note [facility] Medical Records Department [address] [place] [address] Anesthesia Postop Eval II 02/19/25 0958 MR#: [id number] Acct: [id number] Name: SHASHI OSWALD Rep #:[id number] : 1945 79 From: Bi Zaman MD PCP: Dr. Candelario Santana MD Status:ADM I N Y Race: C Location: [facility] [place] MS308 -1 Anesthesia Postop Eval I Sum Postop Eval Completion status Anesthesia document: Postop Eval 1 completed: Yes Anesthesia Postop Eval I Summary Anesthesia Postop Eval I Summary: Anesthesia Postop Eval I: Assessment Summary Airway patent Yes 02/16/25 12:50 EDITOR [email or web address].[email or web address] Spontaneous unlabored Yes 02/16/25 12:50 EDITOR BOOK.[email or web address] respirations Mental status Awake,Calm 02/16/25 12:50 EDITOR [email or web address].[email or web address] nausea No 02/16/25 12:50 EDITOR BOOK.SKOBY Vomiting No 02/16/25 12:50 EDITOR BOOK.SKOBY Anesthesia Postop Eval I: Fluid Summary Crystalloid volume administer 2,400 02/16/25 12:50 EDITOR BOOK.SKOBY (ml) Colloids volume administered ( ml) Blood Product volume administered (ml) Total IV fluid infused 2,400 02/16/25 12:50 EDITOR BOOK.SKOBY Anesthesia Postop Eval I: Summary Notes Anesthesia Complication No 02/16/25 12:50 EDITOR BOOK.SKOBY Anesthesia Complication Comment: Post-operative progress note to receive 2 units 02/16/25 12:50 EDITOR BOOK.SKOBY of PRBCs, awaiting from blood bank, Dr. Zaman aware of units to be received and pressor requirements during case; currently weaned off and BP stable. Anesthesia: Postop Eval II Evaluation Mental status: Awake and Calm Pain Level: 1 nausea: No Vomiting: No Complications Anesthesia Complication: No 02/19/25 0958 vanessa ALFARO> Date _ Bi Zaman MD Cosigner Signature: Date CC: ~ Signed [facility]07-02-2025 Consult note [facility] Medical Records Department [address] [facility] [place] [address] Counseling Note - Pharmacy 02/21/2537 MR#: [id number] Acct: [id number] Name: SHASHI OSWALD Rep #:[id number] : 1945 79 From: Ena Viera PCP: Dr. Candelario Santana MD Status:ADM I N Y Location: [place] XH360-8 Pharmacy [place] Med Reconciliation Pharmacy Service has performed discharge [...] Signature (if applicable): Date CC: ~ Signed [facility]07-02-2025 Discharge summary Author Gia Owusu [facility] Note Date/Time February 21, 2025 11:18 am [facility] Medical Records Department [address] [place] [address] Discharge Summary 02/21/25 0828 MR#: [id number] Acct: [id number] Name: SHASHI OSWALD Rep #:[id number] : 1945 79 From: Gia Owusu DO PCP: Dr. Candelario Santana MD Status:ADM I N [facility] Prov[facility] Date of Admission: 02/15/25 Date of [...] female who presented to the emergency department [facility] on 02/15/2025 with a chief complaint [...] Rehab Unit/Facility Charges/Coding Visit Charges Inpatient E&M: 76995 Disch Hosp >30min 02/21/25 1118 <Electronically signed by Gia Owusu DO> Cosigner Signature (if applicable): CC: Dr. Matt Chacon MD; Dr. Gia Owusu DO; Dr. Candelario Santana MD~ Signed [facility] Work Phone: 1(499) 299-670307-02-2025 Consult note Author Ena Viera [facility] Note Date/Time February 21, 2025 1:55p m [facility] Medical Records Department [address] [place] [address] Counseling Note - Pharmacy 02/21/25 0937 MR#: [id number] Acct: [id number] Name: SHASHI OSWALD Rep #:[id number] : 1945 79 From: Ena Viera PCP: Dr. Candelario Santana MD Status:ADM I N Y Location: [place] [address] Pharmacy [place] Med Reconciliation Pharmacy Service has performed discharge [...] (if applicable): Date __ CC: ~ Signed [facility] Work Phone: 1(604) 879-313807-02-2025 Discharge summary [facility] Medical Records Department [address] [place] [address] Discharge Summary 02/21/2528 MR#: [id number] Acct: [id number] Name: SHASHI OSWALD Rep #:[id number] : 1945 79 From: Gia Owusu DO PCP: Dr. Candelario Santana MD Status:ADM I N Location: [facility] WR550-4 Providers Date of Admission: 02/15/25 Date of [...] female who presented to the emergency department [facility] on 02/15/2025 with a chief complaint [...] Rehab Unit/Facility Charges/Coding Visit Charges Inpatient E&M: 77078 Disch Hosp >30min 02/21/25 1118 Cosigner Signature (if applicable): CC: Dr. Matt Chacon MD; Dr. Gia Owusu DO; Dr. Candelario Santana MD~ Signed [facility]02[facility] Progress note Author Gia Owusu [facility] Note Date/Time February 20, 2025 5:16p [facility] Medical Records Department [address] [place] [address] Progress Note - Hospitalist 02/20/25 1713 MR#: [id number] Acct: [id number] Name: SHASHI OSWALD Rep #:[id number] : 1945 79 From: Gia Owusu DO PCP: Dr. Candelario Santana MD Status:ADM I N Location: [place] VM167-2 Reason for Visit Reason for Visit: L [...] - Has been accepted at rehab - Jeyw-pu-nnlc done this evening and patient has been [...] ready for discharge from a medical standpoint. Peih-vs-rdjl done today with insurance company. She has been approved for rehab level of care at discharge. Per discussion with case management we will plan for discharge tomorrow to rehab. Charges/Coding Visit Charges Inpatient E&M: 48388 Subs Hosp L1 02/20/25 1716 <Electronically signed by Gia Owusu DO> Cosigner Signature (if applicable): CC: ~ Signed [facility] Work Phone: 1(586) 997-775907-01-2025 Progress note [facility] Medical Records Department [address] [place] [address] Progress Note - Hospitalist 02/20/25 1713 MR#: [id number] Acct: [id number] Name: SHASHI OSWALD Rep #:[id number] : 1945 79 From: Gia Owusu DO PCP: Dr. Candelario Santana MD Status:ADM I N Location: [place] BX717-0 Reason for Visit Reason for Visit: L [...] - Has been accepted at rehab - Jetv-qy-dhka done this evening and patient has been [...] ready for discharge from a medical standpoint. Wqtf-zs-kktb done today with insurance company. She has been approved for rehab level of care at discharge. Per discussion with case management we will plan for discharge tomorrow to rehab. Charges/Coding Visit Charges Inpatient E&M: 14922 Subs Hosp L1 02/20/25 1716 Cosigner Signature (if applicable): CC: ~ Signed [facility]06-30-2025 Progress note Author Gia Owusu [facility] Note Date/Time February 19, 2025 4:12 pm [facility] Medical Records Department [address] [place] [address] Progress Note - Hospitalist 02/19/25 1607 MR#: [id number] Acct: [id number] Name: SHASHI OSWALD Rep #:[id number] : 1945 79 From: Gia Owusu DO PCP: Dr. Candelario Santana MD Status:ADM I N Location: [place] FD960-9 Reason for Visit Reason for Visit: Left [...] for admission. Charges/Coding Visit Charges Inpatient E&M: 87928 Subs Hosp L1 02/19/25 1612 <Electronically signed by Gia Owusu DO> Cosigner Signature (if applicable): CC: ~ Signed [facility] Work Phone: 1(644) 514-105206-30-2025 Progress note [facility] Medical Records Department [address] [place] [address] Progress Note - Hospitalist 02/19/25 1607 MR#: [id number] Acct: [id number] Name: SHASHI OSWALD Rep #:[id number] : 1945 79 From: Gia Owusu DO PCP: Dr. Candelario Santana MD Status:ADM I N Location: [place] MA352-5 Reason for Visit Reason for Visit: Left [...] for admission. Charges/Coding Visit Charges Inpatient E&M: 58522 Subs Hosp L1 02/19/25 1612 Cosigner Signature (if applicable): CC: ~ Signed [facility]06-30-2025 Progress note Author Matt Chacon [facility] Note Date/Time February 19, 2025 1:27 pm [facility] Medical Records Department [address] [place] [address] Progress Note - Orthopedic 02/19/25 1317 MR#: [id number] Acct: [id number] Name: SHASHI OSWALD Rep #:[id number] : 1945 79 From: Matt Chacon MD PCP: Dr. Candelario Santana MD Status:ADM I N Location: [place] YL598-1 Documented by User: LEONIE Delaney 02/19/25 13:22 [...] Cosigner Signature (if applicable): CC: ~ Signed [facility] Work Phone: 1(103) 547-695406-30-2025 Progress note [facility] Medical Records Department [address] [place] [address] Progress Note - Orthopedic 02/19/25 1317 MR#: [id number] Acct: [id number] Name: SHASHI OSWALD Rep #:[id number] : 1945 79 From: Matt Chacon MD PCP: Dr. Candelario Santana MD Status:ADM I N Location: [facility] [place] JE865-7 Documented by User: LEONIE Delaney 02/19/25 13:22 [...] Cosigner Signature (if applicable): CC: ~ Signed [facility]06-30-2025 Consult note Author Bi Zaman [facility] Note Date/Time February 21, 2025 1:55p m [facility] Medical Records Department [address] [place] [address] Anesthesia Postop Eval II 02/19/25 0958 MR#: [id number] Acct: [id number] Name: SHASHI OSWALD Rep #:[id number] : 1945 79 From: Bi Zaman MD PCP: Dr. Candelario Santana MD Status:ADM I N Y Race: C Location: [facility] [place] MS308 -1 Anesthesia Postop Eval I Sum Postop Eval Completion status Anesthesia document: Postop Eval 1 completed: Yes Anesthesia Postop Eval I Summary Anesthesia Postop Eval I Summary: Anesthesia Postop Eval I: Assessment Summary Airway patent Yes 02/16/25 12:50 EDITOR [email or web address].[email or web address] Spontaneous unlabored Yes 02/16/25 12:50 EDITOR [email or web address].[email or web address] respirations Mental status Awake,Calm 02/16/25 12:50 EDITOR [email or web address].[email or web address] nausea No 02/16/25 12:50 EDITOR BOOK.[email or web address] Vomiting No 02/16/25 12:50 EDITOR BOOK.SKOBY Anesthesia Postop Eval I: Fluid Summary Crystalloid volume administer 2,400 02/16/25 12:50 TRENT (ml) Colloids volume administered ( ml) Blood Product volume administered (ml) Total IV fluid infused 2,400 02/16/25 12:50 EDITOR BOOKMERNA Anesthesia Postop Eval I: Summary Notes Anesthesia Complication No 02/16/25 12:50 EDITOR BOOKMERNA Anesthesia Complication Comment: Post-operative progress note to [...] MD Cosigner Signature: Date CC: ~ Signed [facility] Work Phone: 1(189) 481-968706-29-2025 Progress note Author Gia Owusu [facility] Note Date/Time February 18, 2025 12:4 3pm [facility] Medical Records Department [address] [place] [address] Progress Note - Hospitalist 02/18/25 0719 MR#: [id number] Acct: [id number] Name: SHASHI OSWALD Rep #:[id number] : 1945 79 From: Gia Owusu DO PCP: Dr. Candelario Santana MD Status:ADM I N Location: [place] [address] Reason for Visit Reason for Visit: Left [...] % (Auto) 63.7, Lymph % (Auto) 22.6, Bent% (Auto) 10.4 H, Eos % (Auto) 2.4, [...] Anticipate discharge to SNF versus rehab--> case management/adoption social worker following - Will need pre-CERT Acute anemia [...] need pre-CERT. Charges/Coding Visit Charges Inpatient E&M: 04387 Subs Hosp L2 02/18/25 1243 <Electronically signed by Gia Owusu DO> Cosigner Signature (if applicable): CC: ~ Signed [facility] Work Phone: 1(255) 937-410306-29-2025 Progress note [facility] Medical Records Department [address] [place] [address] Progress Note - Hospitalist 02/18/25 0719 MR#: [id number] Acct: [id number] Name: SHASHI OSWALD Rep #:[id number] : 1945 79 From: Gia Owusu DO PCP: Dr. Candelario Santana MD Status:ADM I N Location: [place]3 AZ238-0 Reason for Visit Reason for Visit: Left [...] Neut% (Auto) 63.7, Lymph % (Auto) 22.6, Bent% (Auto) 10.4 H, Eos % (Auto) 2.4, [...] Anticipate discharge to SNF versus rehab--> case management/adoption social worker following - Will need pre-CERT Acute anemia [...] need pre-CERT. Charges/Coding Visit Charges Inpatient E&M: 83014 Subs Hosp L2 02/18/25 1243 Cosigner Signature (if applicable): CC: ~ Signed [facility]06-28-2025 Progress note Author Gia Owusu [facility] Note Date/Time February 17, 2025 4:05 pm [facility] Medical Records Department [address] [place] [address] Progress Note - Hospitalist 02/17/25 0745 MR#: [id number] Acct: [id number] Name: SHASHI OSWALD Rep #:[id number] : 1945 79 From: Gia Owusu DO PCP: Dr. Cadnelario Santana MD Status:ADM I N Location: [place] [address] Reason for Visit Reason for Visit: Inability [...] % (Auto) 66.6, Lymph % (Auto) 22.0, Bent% (Auto) 10.3 H, Eos % (Auto) 0.3, [...] 24 fluoroscopic images were obtained. Reading Location: [facility]- Hip X-Ray 02/16/25 08:00 IMPRESSION: Intraoperative fluoroscopy was performed for fracture fixation of the proximal left femur. A total of 24 fluoroscopic images were obtained. Reading Location: [place] [address] Physical Exam Const alert, oriented x3, no [...] Anticipate discharge to SNF versus rehab--> case management/adoption social worker following - Will need pre-CERT - If [...] -Full code Charges/Coding Visit Charges Inpatient E&M: 96103 Subs Hosp L2 02/17/25 7908 <Electronically signed by Gia Owusu DO> Cosigner Signature (if applicable): CC: ~ Signed [facility] Work Phone: 1(395) 956-160006-28-2025 Progress note [facility] Medical Records Department [address] [place] [address] Progress Note - Hospitalist 02/17/25 0745 MR#: [id number] Acct: [id number] Name: SHASHI OSWALD Rep #:[id number] : 1945 79 From: Gia Owusu DO PCP: Dr. Candelario Santana MD Status:ADM I N Location: [facility] JJ118-8 Reason for Visit Reason for Visit: Inability [...] Neut% (Auto) 66.6, Lymph % (Auto) 22.0, Bent% (Auto) 10.3 H, Eos % (Auto) 0.3, [...] 24 fluoroscopic images were obtained. Reading Location: [place] [address] Hip X-Ray 02/16/25 08:00 IMPRESSION: Intraoperative fluoroscopy was performed for fracture fixation of the proximal left femur. A total of 24 fluoroscopic images were obtained. Reading Location: [place] [address] Physical Exam Const alert, oriented x3, no [...] Anticipate discharge to SNF versus rehab--> case management/adoption social worker following - Will need pre-CERT - If [...] -Full code Charges/Coding Visit Charges Inpatient E&M: 26331 Subs Hosp L2 02/17/25 1605 Cosigner Signature (if applicable): CC: ~ Signed [facility]06-28-2025 Progress note Author Matt Chacon [facility] Note Date/Time February 17, 2025 11:4 3am [facility] Medical Records Department [address] [place] [address] Progress Note - Orthopedic 02/17/25 1137 MR#: [id number] Acct: [id number] Name: SHASHI OSWALD Rep #:[id number] : 1945 79 From: Matt Chacon MD PCP: Dr. Candelario Santana MD Status:ADM I N Location: [place]3 SK504-2 Subjective Subjective Postop day 1 status post [...] % (Auto) 66.6, Lymph % (Auto) 22.0, Bent% (Auto) 10.3 H, Eos % (Auto) 0.3, [...] 24 fluoroscopic images were obtained. Reading Location: [place] [address] Hip X-Ray 02/16/25 08:00 IMPRESSION: Intraoperative fluoroscopy was performed for fracture fixation of the proximal left femur. A total of 24 fluoroscopic images were obtained. Reading Location: [place] [address] Physical Exam Narrative Dressing?CDI. Distal neurovascular exam [...] Cosigner Signature (if applicable): CC: ~ Signed [facility] Work Phone: 1(632) 878-645906-28-2025 Progress note [facility] Medical Records Department [address] [place] [address] Progress Note - Orthopedic 02/17/25 1137 MR#: [id number] Acct: [id number] Name: SHASHI OSWALD Rep #:[id number] : 1945 79 From: Matt Chacon MD PCP: Dr. Candelario Santana MD Status:ADM I N Location: [place] PA761-6 Subjective Subjective Postop day 1 status post [...] Neut% (Auto) 66.6, Lymph % (Auto) 22.0, Bent% (Auto) 10.3 H, Eos % (Auto) 0.3, [...] 24 fluoroscopic images were obtained. Reading Location: [place] [address] Hip X-Ray 02/16/25 08:00 IMPRESSION: Intraoperative fluoroscopy was performed for fracture fixation of the proximal left femur. A total of 24 fluoroscopic images were obtained. Reading Location: [place] [address] Physical Exam Narrative Dressing?CDI. Distal neurovascular exam [...] Cosigner Signature (if applicable): CC: ~ Signed [facility]06-27-2025 Progress note Author Baldev Berry [facility] Note Date/Time February 16, 2025 3:31 pm [facility] Medical Records Department [address] [place] [address] Progress Note - Hospitalist 02/16/25 8230 MR#: [id number] Acct: [id number] Name: DAREKSHASHI Rep #:[id number] : 1945 79 From: Baldev Berry DO PCP: Dr. Candelario Santana MD Status:ADM I N Location: [place] UK103-3 Reason for Visit Reason for Visit: Diagnoses [...] % (Auto) 50.2, Lymph % (Auto) 38.6, Bent% (Auto) 8.7, Eos % (Auto) 1.8, Baso [...] Clarity Clear, Urine pH 6.5, Ur Specific [place] 1.010, Urine Protein 30 H, Urine Glucose [...] % (Auto) 60.6, Lymph % (Auto) 27.3, Bent% (Auto) 9.3, Eos % (Auto) 1.9, Baso [...] Comminuted impacted left intertrochanteric fracture. Reading Location: [facility] Hip/Pelvis X-Ray 02/15/25 13:40 IMPRESSION: Comminuted impacted left intertrochanteric fracture. Reading Location: [facility] Physical Exam Const alert and no apparent [...] prophylaxis: SCDs. Charges/Coding Visit Charges Inpatient E&M: 55192 Subs Hosp L2 02/16/25 0497 <Electronically signed by Baldev Berry DO> Cosigner Signature (if applicable): CC: ~ Signed [facility] Work Phone: 1(781) 395-110206-27-2025 Progress note [facility] Medical Records Department [address] [place] [address] Progress Note - Hospitalist 02/16/25 0750 MR#: [id number] Acct: [id number] Name: SHASHI OSWALD Rep #:[id number] : 1945 79 From: Baldev Berry DO PCP: Dr. Candelario Santana MD Status:ADM I N Location: [place] LI713-8 Reason for Visit Reason for Visit: Diagnoses [...] Neut% (Auto) 50.2, Lymph % (Auto) 38.6, Bent% (Auto) 8.7, Eos % (Auto) 1.8, Baso [...] Clarity Clear, Urine pH 6.5, Ur Specific [place] 1.010, Urine Protein 30 H, Urine Glucose [...] Neut% (Auto) 60.6, Lymph % (Auto) 27.3, Bent% (Auto) 9.3, Eos % (Auto) 1.9, Baso [...] Comminuted impacted left intertrochanteric fracture. Reading Location: [facility] Hip/Pelvis X-Ray 02/15/25 13:40 IMPRESSION: Comminuted impacted left intertrochanteric fracture. Reading Location: [facility] Physical Exam Const alert and no apparent [...] prophylaxis: SCDs. Charges/Coding Visit Charges Inpatient E&M: 74403 Subs Hosp L2 02/16/25 1531 Cosigner Signature (if applicable): CC: ~ Signed [facility]06-27-2025 Procedure note [facility] Medical Records Department [address] [place] [address] Operative Report 02/16/25 1502 MR#: [id number] Acct: [id number] Name: SHASHI OSWALD Rep #:[id number] : 1945 79 From: Matt Chacon MD PCP: Dr. Candelario Santana MD Status:ADM I N Location: [place]3 MQ208-3 Procedures Musculoskeletal 20xxx-29xxx: Other Procedure See Report Operative Report (Standard) Operative Information Date of Procedure: 02/16/25 Pre-Operative Diagnosis: Left femur intertrochanteric fracture with subtrochanteric extension, displaced Post-Operative Diagnosis: Same Surgery/Procedure Performed: Left femur cephalomedullary nailing with long gammanail, open reduction internal fixation service operations manager: Yes Repairer Engine Production: Holden Delgadillo Tasks completed by first aid instructor: Closing, Implanting device and Retracting Type of [...] that apply: Implanted device Implanted device details: Erie gamma 4 cephalomedullary nail Estimated Blood Loss: 150 cc Specimen collected: No Description of surgery: Operative Report Pre-operative Diagnosis: Left displaced intertrochanteric Femur Fracture with subtrochanteric extension Post-operative Diagnosis: Same Procedure(s) Performed: Left femur open reduction internal fixation, Cephalmedullary Nailing CPT 55420, modifier 22, old fracture requiring significant fracture debridement and difficult open reduction attempts Surgeon: Dr. Matt Chacon MD Export Packer: None Estimated Blood Loss: 150 ml Anesthesia: General Drains: None Specimens: None Implants: [place] Gamma4 Trochanteric Nail 360 x 11 mm, [...] time transported to the operative theater by [facility]. A Time Out was held and [...] the help of the C-arm with perfect [place] technique. This was placed inthe proximal end of the oblong hole. Final fluorscopic images were then taken and the placement of the intramedullary device and fracture was deemed appropriate. The wounds were irrigated copiously with sterile solution. Vastus lateralis and the deep fascia was closed with 0 vicryl suture in separate layers. The deep dermal layer was closed with 2-0 vicryl suture. Bowie were used to close the skin. Aquacel [...] Candelario Santana MD; Dr. Terry, DO~ Signed [facility]06-27-2025 Consult note Author Sheridan Mcknight [facility] Note Date/Time February 16, 2025 12:5 0pm [facility] Medical Records Department [address] [place] [address] Anesthesia Postop Eval I 02/16/25 1248 MR#: [id number] Acct: [id number] Name: SHASHI OSWALD Rep #:[id number] : 1945 79 From: Sheridan simmons CRNA PCP: Dr. Candelario Santana MD Status:ADM I N Y Race: C Location: [place] [address] Anesthesia: Postop Eval I Current Vital Signs [...] CRNA Cosigner Signature: Date CC: ~ Signed [facility] Work Phone: 1(108) 476-183606-27-2025 Radiology Diagnostic study note [facility] Imaging Services [address] [place] [address] Hip Min 2 Views (Portable) MR#: [id number] Acct: [id number] Name: SHASHI OSWALD Rep #: [id number] : 1945 F 79 From: Hector Talley MD PCP: Dr. Candelario Santana MD Status: ADM I N Study:Hip Min 2 Views (Portable) Date of Exam : 02/16/25 Exam# [id number] Ordering Dr: Ronal Chacon MD PROCEDURE: HIP [...] 24 fluoroscopic images were obtained. Reading Location: [place] [address] CC: Dr. Matt Chacon MD; Dr. Candelario Santana MD ~ Opinion Polls Survey Worker: Signed [facility]06-27-2025 Radiology Diagnostic study note [facility] Imaging Services [address] [id number] O.R. Fluoro for C-Arm MR#: [id number] Acct: [id number] Name: SHASHI OSWALD Rep #: [id number] : 1945 F 79 From: Hector Talley MD PCP: Dr. Candelario Santana MD Status: ADM I N Study:O.R. Fluoro for C-Arm Date of Exam: 02/16/25 Exam# [id number] Ordering Dr: Ronal Chacon MD PROCEDURE: HIP [...] 24 fluoroscopic images were obtained. Reading Location: [place] [address] CC: Dr. Matt Chacon MD; Dr. Candelario Santana MD ~ Opinion Polls Survey Worker: Signed [facility]06-27-2025 Consult note [facility] Medical Records Department [address] [place] [address] Anesthesia Postop Eval I 02/16/25 1248 MR#: [id number] Acct: [id number] Name: SHASHI OSWALD Rep #:[id number] : 1945 79 From: Sheridan simmons CRNA PCP: Dr. Candelario Santana MD Status:ADM I N Y Race: C Location: [place] [address] Anesthesia: Postop Eval I Current Vital Signs [...] Eval 1 completed: Yes 02/16/25 1250 nski EDITOR BOOK> Date _ Sheridan Mcknight CRNA Cosigner Signature: Date CC: ~ Signed [facility]06-27-2025 Consult note Author Matt Chacon [facility] Note Date/Time February 16, 2025 9:23 am [facility] Medical Records Department [address] [place] [address] Consultation - Orthopedics 02/16/25912 MR#: [id number] Acct: [id number] Name: SHASHI OSWALD Rep #:[id number] : 1945 79 From: Matt Chacon MD PCP: Dr. Candelario Santana MD Status:ADM I N Location: [facility] HC943-9 HPI Consult Data Date of Consult: 02/16/25 [...] thinners. She is anemic with hemoglobin 8.7. [facility] Medical History Hyperthyroidism Rheumatoid arthritis Kidney stones [...] % (Auto) 50.2, Lymph % (Auto) 38.6, Bent% (Auto) 8.7, Eos % (Auto) 1.8, Baso [...] Clarity Clear, Urine pH 6.5, Ur Specific [place] 1.010, Urine Protein 30 H, Urine Glucose [...] % (Auto) 60.6, Lymph % (Auto) 27.3, Bent% (Auto) 9.3, Eos % (Auto) 1.9, Baso [...] Comminuted impacted left intertrochanteric fracture. Reading Location: [facility] Hip/Pelvis X-Ray 02/15/25 13:40 IMPRESSION: Comminuted impacted left intertrochanteric fracture. Reading Location: [facility] Assessment & Plan Assessment/Plan (1) Intertrochanteric fracture [...] was signed. Charges/Coding Visit Charges Inpatient E&M: 67573 Init Hosp L3 02/16/25 0918 <Electronically signed [...] MD; Dr. Abdirashid Cano, DO ~* Signed [facility] Work Phone: 1(151) 725-692706-27-2025 Consult note Author Bi Zaman [facility] Note Date/Time February 16, 2025 8:45 am [facility] Medical Records Department [address] [facility] [place] [address] Pre-Anesthesia Evaluation 02/16/25 0836 MR#: [id number] Acct: [id number] Name: SHASHI OSWALD Rep #:[id number] : 1945 79 From: Bi Zaman MD PCP: Dr. Candelario Santana MD Status:ADM I N Y Race: C Location: [facility] MS308 -1 ASA Classification* [...] Gamma nail. Anesthesia History Anesthesia History - manager psychology: Anesthesia History - manager psychology Hx Hospitalization Yes: 02/202211/20/22 12:16 Any Problems [...] Yes NPO since: 00:00 PONV PONV - manager psychology: PONV - manager psychology Female HX of Motion Sickness HX of N/V After Surgery Non-Smoker Duration of Surgery greater than 60 minutes Number of Risk Factors PONV Score Height & Weight Height & Weight: Anesthesia: Height & Weight Height 5 ft 1 in 02/15/25 16:04 Weight: 57.289 kg 02/15/25 16:04 Body Mass Index (BMI) 23.8 02/15/25 16:04 Respiratory Assessment Respiratory Assessment - manager psychology: Respiratory Tract Infection Hx - manager psychology Hx Respiratory Tract Infection No 02/16/25 00:28 STOP Sleep Apnea STOP Sleep Apnea - manager psychology: STOP Sleep Apnea - manager psychology Hx Hypertension Yes: CONTROLLED WITH MED 02/15/25 [...] Tobacco Use History Tobacco Use History - manager psychology: Tobacco Use History - manager psychology Tobacco Use Smoking Status Never smoker 02/15/25 16:04 Hx Tobacco Use No 02/15/25 16:04 Years Smoking Packs Smoked per Day Smoking Cessation Date was within the last 15 years Hx Smoking Cessation Date Hx Smoking Cessation Counseling Hematologic Medial History Hematologic Hx - manager psychology: 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 Hx of Blood Transfusion No 02/15/25 16:04 [...] confused, unrespo /Reproduction History /Reproductive History - manager psychology: /Reproductive Hx- manager psychology Hx Now Gestational Age (in weeks): EDC: [...] mls @ 15 mls/hr 02/15/25 16:08 IV .[id number] PRN Saline Flush Sodium Chloride 250 mls @ 15 mls/hr 02/15/25 16:08 IV .[id number] PRN Additional IVPB Infusion Lactated Ringer's 1,000 [...] MD Cosigner Signature: Date CC: ~ Signed [facility] Work Phone: 1(790) 136-211906-27-2025 Consult note [facility] Medical Records Department [address] [place] [address] Consultation - Orthopedics 02/16/25912 MR#: [id number] Acct: [id number] Name: SHASHI OSWALD Rep #:[id number] : 1945 79 From: Matt Chacon MD PCP: Dr. Candelario Santana MD Status:ADM I N Location: [place] [address] HPI Consult Data Date of Consult: 02/16/25 [...] for a week. She refused to go [facility] initially but since the pain worsened she came to the hospital yesterday. Prior to thefall she wasable to ambulate without any ambulatory aid. She was mainly housebound elevatedbut did go some grocery runs. Denied any significant balance issues or limping prior to the fall. She is a known diabetic. Denies any blood thinners. She is anemic with hemoglobin 8.7. [facility] Medical History Hyperthyroidism Rheumatoid arthritis Kidney stones [...] Neut% (Auto) 50.2, Lymph % (Auto) 38.6, Bent% (Auto) 8.7, Eos % (Auto) 1.8, Baso [...] Clarity Clear, Urine pH 6.5, Ur Specific [place] 1.010, Urine Protein 30 H, Urine Glucose [...] Neut% (Auto) 60.6, Lymph % (Auto) 27.3, Bent% (Auto) 9.3, Eos % (Auto) 1.9, Baso [...] Comminuted impacted left intertrochanteric fracture. Reading Location: [facility] Hip/Pelvis X-Ray 02/15/25 13:40 IMPRESSION: Comminuted impacted left intertrochanteric fracture. Reading Location: [facility] Assessment & Plan Assessment/Plan (1) Intertrochanteric fracture [...] was signed. Charges/Coding Visit Charges Inpatient E&M: 18461 Init Hosp L3 02/16/25 0918 Cosigner Signature [...] MD; Dr. Abdirashid Cano DO ~* Signed [facility]06-27-2025 Consult note [facility] Medical Records Department [address] [place] [address] Pre-Anesthesia Evaluation 02/16/25 0836 MR#: [id number] Acct: [id number] Name: SHASHI OSWALD Rep #:[id number] : 1945 79 From: Bi Zaman MD PCP: Dr. Candelario Santana MD Status:ADM I N Y Race: C Location: [facility] -1 ASA Classification* ASA Classification ASA Classification: [...] Gamma nail. Anesthesia History Anesthesia History - manager psychology: Anesthesia History - manager psychology Hx Hospitalization Yes: 02/202211/20/22 12:16 Any Problems [...] Yes NPO since: 00:00 PONV PONV - manager psychology: PONV - manager psychology Female HX of Motion Sickness HX of N/V After Surgery Non-Smoker Duration of Surgery greater than 60 minutes Number of Risk Factors PONV Score Height & Weight Height & Weight: Anesthesia: Height & Weight Height 5 ft 1 in 02/15/25 16:04 Weight: 57.289 kg 02/15/25 16:04 Body Mass Index (BMI) 23.8 02/15/25 16:04 Respiratory Assessment Respiratory Assessment - manager psychology: Respiratory Tract Infection Hx - manager psychology Hx Respiratory Tract Infection No 02/16/25 00:28 STOP Sleep Apnea STOP Sleep Apnea - manager psychology: STOP Sleep Apnea - manager psychology Hx Hypertension Yes: CONTROLLED WITH MED 02/15/25 [...] Tobacco Use History Tobacco Use History - manager psychology: Tobacco Use History - manager psychology Tobacco Use Smoking Status Never smoker 02/15/25 16:04 Hx Tobacco Use No 02/15/25 16:04 Years Smoking Packs Smoked per Day Smoking Cessation Date was within the last 15 years Hx Smoking Cessation Date Hx Smoking Cessation Counseling Hematologic Medial History Hematologic Hx - manager psychology: 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 Hx of Blood Transfusion No 02/15/25 16:04 [...] confused, unrespo /Reproduction History /Reproductive History - manager psychology: /Reproductive Hx- manager psychology Hx Now Gestational Age (in weeks): EDC: [...] mls @ 15 mls/hr 02/15/25 16:08 IV .[id number] PRN Saline Flush Sodium Chloride 250 mls @ 15 mls/hr 02/15/25 16:08 IV .[id number] PRN Additional IVPB Infusion Lactated Ringer's 1,000 [...] 120 Ml Liquid PO Not Given 4X/DAY [facility] Ondansetron HCl 4 mg 02/15/25 16:01 Ondansetron [...] MD Cosigner Signature: Date CC: ~ Signed [facility]06-26-2025 History and physical note Author Lakeshia Mas [facility] Note Date/Time February 15, 2025 3:05 pm [facility] Medical Records Department [address] [place] [address] H&P Exam - Hospitalist 02/15/25 1456 MR#: [id number] Acct: [id number] Name: SHASHI OSWALD Rep #:[id number] : 1945 79 From: Lakeshia Mas MD PCP: Dr. Candelario Santana MD Status:REG E R Location: ED HPI - General General Date of Admission: 02/15/25 Date of Service: 02/15/25 Chief Complaint: Left hip fracture HPI Narrative SHASHI OSWALD, is a 79-year-old female history of diabetes, hypertension, hypothyroidism presented to [facility] ED 02/15/2025 with inability to walk. [...] get up she called EMS and presented [facility]. On arrival in the ED patient [...] has no other new or acute complaints [facility] Medical History Wears glasses Rash Thyroid disease [...] % (Auto) 50.2, Lymph % (Auto) 38.6, Bent% (Auto) 8.7, Eos % (Auto) 1.8, Baso [...] Clarity Clear, Urine pH 6.5, Ur Specific [place] 1.010, Urine Protein 30 H, Urine Glucose (UA) Normal, Urine Ketones 15 H, Urine Occult Blood 10 H, Urine Nitrite Negative, Urine Bilirubin Negative, Urine Urobilinogen 8 H, Ur Leukocyte Esterase Negative Imaging Radiology Impression Femur X-Ray 02/15/25 13:40 IMPRESSION: Comminuted impacted left intertrochanteric fracture. Reading Location: [facility] Hip/Pelvis X-Ray 02/15/25 13:40 IMPRESSION: Comminuted impacted left intertrochanteric fracture. Reading Location: [facility] Assessment & Plan Assessment/Plan (1) Hip fracture: [...] Mas MD Charges/Coding Visit Charges Inpatient E&M: 95905 Init Hosp L2 02/15/25 1507 <Electronically signed by Lakeshia Mas MD> Cosigner Signature (if applicable): CC: Dr. Lakeshia Mas MD; Dr. Candelario Santana MD~ Signed [facility] Work Phone: 1(688) 435-630506-26-2025 Evaluation note* Diagnosis Onset Date Resolution Status Admit Date Anemia acute February 15 2:56pm Fall acute February 15 2:56pm Hip fracture acute February 15 025 2:56pm Intertrochanteric fracture o f left femur acute February 15, 2025 2:56pm Occult blood in stools [facility] 2024 2:56pm Status post hip surgery acute [facility] 2024 2:56pm Vitamin D deficiency acute February 15, 2025 2:56pm Constipation chronic February 15 025 2:56pm [facility] Work Phone: 1(156) 702-804706-26-2025 Evaluation note* Diagnosis Onset Date Resolution Status Admit Date Occult blood in stools [facility] 2024 2:56pm Anemia chronic February 15 [...] (ORIF) procedure inactive February 21, 2025 2:16pm [facility] Work Phone: 1(659) 274-364606-26-2025 Evaluation note* Diagnosis Onset Date Resolution Status [...] 2:56pm Status post hip surgery deleted J pending sale to [facility] 2024 2:56pm Debility acute February 21, 2025 2:16pm Hyponatremia acute February 21 2:16pm Occult blood in stools acute [facility] 2024 2:16pm Paroxysmal atrial fibrillation acute February [...] inactive February 2:16pm History of hemorrhoids inactive [facility] 2024 2:16pm History of open reduction an d internal fixation (ORIF) procedure inactive February 21, 2025 2:16pm Hyperlipemia inactive February 21 2:16pm Hypothyroidism inactive February 21, 2025 2:16pm Murmur, cardiac inactive February 21, 2025 2:16pm Parkinson's disease inactive February 21, 2025 2:16pm Status post hip surgery inactive [facility] 2024 2:16pm [facility] Work Phone: 1(350) 558-712806-26-2025 Evaluation note* Diagnosis Onset Date Resolution Status Admit Date Occult blood in stools acute [facility] 2024 2:56pm Anemia chronic February 15 2:56pm Vitamin D deficiency chronic February 15, 2025 2:56pm Constipation resolved February 15, 2 025 2:56pm Hip fracture resolved February 15 2 025 2:56pm Intertrochanteric fracture o f left femur resolved February 15, 2025 2:56pm Fall inactive February 15 2:56pm Status post hip surgery deleted J pending sale to [facility] 2024 2:56pm Debility acute February 21, [...] (ORIF) procedure inactive March 29, 2025 1:54pm [facility] Work Phone: 1(433) 688-246206-26-2025 Discharge summary Author Abdirashid Cano [facility] Note Date/Time February 15, 2025 2:40 pm [facility] Medical Records Department [address] [place] [address] Emergency Department Summary 02/15/25 MR#: [id number] Acct: [id number] Name: SHASHI OSWALD Rep #:[id number] : 1945 79 From: Abdirashid Cano DO [...] up she came in by EMS today. [facility] Medical History Wears glasses Rash [...] % (Auto) 50.2 Lymph % (Auto) 38.6 Bent % (Auto) 8.7 Eos % (Auto) 1.8 Baso % (Auto) 0.4 Absolute Neuts (auto) 4.6 Absolute Lymphs (auto) 3.52 Nucleated RBC % 0 Urine Color Straw Urine Clarity Clear Urine pH 6.5 Ur Specific [place] 1.010 Urine Protein 30 H Urine Glucose (UA) Normal Urine Ketones 15 H Urine Occult Blood 10 H Urine Nitrite Negative Urine Bilirubin Negative Urine Urobilinogen 8 H Ur Leukocyte Esterase Negative Radiography Diagnostic Testing: Clinical Impression(s) from Imaging Studies Femur X-Ray 02/15/25 13:40 IMPRESSION: Comminuted impacted left intertrochanteric fracture. Reading Location: [facility] Hip/Pelvis X-Ray 02/15/25 13:40 IMPRESSION: Comminuted impacted left intertrochanteric fracture. Reading Location: [facility] Discharge Plan Triage Chief Complaint: Lower Extremity Injury ED Provider: Abdirashid Cano Dx/Rx/DC Orders Clinical Impression: Fall, Hip fracture Prescriptions: No Action losartan 50 mg tablet 50 mg PO DAILY carbidopa-levodopa 25-100 mg tablet 1 tab PO TID Primary Care Provider: Candelario Santana Chi Referrals: Candelario Santana Chi, MD [Primary Care Provider] - Print Language: Syrian Disposition Disposition: Acute Care Hospital [facility] What to do if you have Problems For any increased pain, shortness of breath, bleeding, nausea or vomiting, chestpain, or any unexpected problems, contact your Primary Care Provider. Call [employer] [facility] ([phone]) or report to the closest Emergency Room. Call 911 if necessary. 02/15/25 1438 <Electronically signed by Abdirashid Cano DO> Cosigner Signature (if applicable): CC: Dr. Candelario Santana MD ~ Signed [facility] Work Phone: 1(634) 231-878206-26-2025 History and physical note [facility] Medical Records Department [address] [facility] [place] [address] H&P Exam - Hospitalist 02/15/25 1456 MR#: [id number] Acct: [id number] Name: SHASHI OSWALD Rep #:[id number] : 1945 79 From: Lakeshia Mas MD PCP: Dr. Candelario Santana MD Status:REG E R Location: ED HPI - General General Date of Admission: 02/15/25 Date of Service: 02/15/25 Chief Complaint: Left hip fracture HPI Narrative SHASHI OSWALD, is a 79-year-old female history of diabetes, hypertension, hypothyroidism presented to [facility] ED 02/15/2025 with inability to walk. She fell Wednesday of last week and hadher sons help her get to the couch but she has not been able to get up off the couch since then andnotes that friends and family been bringing her food and water/drinks but due tot persistent painand still not able to get up she called EMS and presented [facility]. On arrival in the ED patient [...] has no other new or acute complaints [facility] Medical History Wears glasses Rash Thyroid disease [...] Neut% (Auto) 50.2, Lymph % (Auto) 38.6, Bent% (Auto) 8.7, Eos % (Auto) 1.8, Baso [...] Clarity Clear, Urine pH 6.5, Ur Specific [place] 1.010, Urine Protein 30 H, Urine Glucose (UA) Normal, Urine Ketones 15 H, Urine Occult Blood 10 H, Urine Nitrite Negative, Urine Bilirubin Negative, Urine Urobilinogen 8 H, Ur Leukocyte Esterase Negative Imaging Radiology Impression Femur X-Ray 02/15/25 13:40 IMPRESSION: Comminuted impacted left intertrochanteric fracture. Reading Location: [facility] Hip/Pelvis X-Ray 02/15/25 13:40 IMPRESSION: Comminuted impacted left intertrochanteric fracture. Reading Location: [facility] Assessment & Plan Assessment/Plan (1) Hip fracture: [...] to be on any oral hypoglycemics anymore, [id number], glucose checks sliding scale insulin #Hypothyroidism -With [...] Mas MD Charges/Coding Visit Charges Inpatient E&M: 77819 Init Hosp L2 02/15/25 1505 Cosigner Signature (if applicable): CC: Dr. Lakeshia Mas MD; Dr. Candelario Santana MD~ Signed [facility]06-26-2025 Discharge summary [facility] Medical Records Department [address] [place] [address] Emergency Department Summary 02/15/25 MR#: [id number] Acct: [id number] Name: SHASHI OSWALD Rep #:[id number] : 1945 79 From: Abdirashid Cano DO [...] up she came in by EMS today. [facility] Medical History Wears glasses Rash [...] % (Auto) 50.2 Lymph % (Auto) 38.6 Bent % (Auto) 8.7 Eos % (Auto) 1.8 Baso % (Auto) 0.4 Absolute Neuts (auto) 4.6 Absolute Lymphs (auto) 3.52 Nucleated RBC % 0 Urine Color Straw Urine Clarity Clear Urine pH 6.5 Ur Specific [place] 1.010 Urine Protein 30 H Urine Glucose (UA) Normal Urine Ketones 15 H Urine Occult Blood 10 H Urine Nitrite Negative Urine Bilirubin Negative Urine Urobilinogen 8 H Ur Leukocyte Esterase Negative Radiography Diagnostic Testing: Clinical Impression(s) from Imaging Studies Femur X-Ray 02/15/25 13:40 IMPRESSION: Comminuted impacted left intertrochanteric fracture. Reading Location: [facility] Hip/Pelvis X-Ray 02/15/25 13:40 IMPRESSION: Comminuted impacted left intertrochanteric fracture. Reading Location: [facility] Discharge Plan Triage Chief Complaint: Lower Extremity Injury ED Provider: Abdirashid Cano Dx/Rx/DC Orders Clinical Impression: Fall, Hip fracture Prescriptions: No Action losartan 50 mg tablet 50 mg PO DAILY carbidopa-levodopa 25-100 mg tablet 1 tab PO TID Primary Care Provider: Candelario Santnaa Chi Referrals: Candelario Santana Chi, MD [Primary Care Provider] - Print Language: Syrian Disposition Disposition: Acute Care Hospital [facility] What to do if you have Problems For any increased pain, shortness of breath, bleeding, nausea or vomiting, chestpain, or any unexpected problems, contact your Primary Care Provider. Call [facility] ([phone]) or report tothe closest Emergency Room. Call 911 if necessary. 02/15/25 1438 Cosigner Signature (if applicable): CC: Dr. Candelario Santana MD ~ Signed [facility]06-26-2025 Radiology Diagnostic study note [facility] Imaging Services [address], [place] [id number] Femur Min 2 Views MR#: [id number] Acct: [id number] Name: SHASHI OSWALD Rep #: [id number] : 1945 From: Joya Vazquez MD PCP: Dr. Candelario Santana MD Status: PRE E R Study:Femur Min 2 Views Date of Exam: Exam# [id number] Ordering Dr: Nathan Cano DO EXAM: XR Left Femur, 2 Views CLINICAL INDICATION: FALL TECHNIQUE: Frontal and lateral views of the left femur. COMPARISON: No relevant prior studies available. FINDINGS: BONES/JOINTS: Comminuted impacted left intertrochanteric fracture. No dislocation. SOFT TISSUES: Soft tissue swelling. RAD/Femur Min 2 Views IMPRESSION: Comminuted impacted left intertrochanteric fracture. Reading Location: [facility] CC: Dr. Candelario Santana MD; Dr. Abdirashid Cano DO ~ [employer] Survey Worker: Signed [facility]06-26-2025 Radiology Diagnostic study note [facility] Imaging Services [address] [place] [address] HIP, UNI W/ Pelvis 2-3 Views MR#: [id number] Acct: [id number] Name: SHASHI OSWALD Rep #: [id number] : 1945 From: Joya Vazquez MD PCP: Dr. Candelario Santana MD Status: PRE E R Study:HIP, UNI W/ Pelvis 2-3 Views Date of Ex am: 02/15/25 Exam# [id number] Ordering Dr: Nathan Cano DO EXAM: XR [...] Comminuted impacted left intertrochanteric fracture. Reading Location: [facility] CC: Dr. Candelario Santana MD; Dr. Abdirashid Cano DO ~ [employer] Survey Worker: Signed [facility]06-26-2025 Discharge summary Author Abdirashid Cano [facility] Note Date/Time February 15, 2025 2:40 pm [facility] Medical Records Department [address] [place] [address] Emergency Department Summary 02/15/25 MR#: [id number] Acct: [id number] Name: SHASHI OSWALD Rep #:[id number] : 1945 79 From: Abdirashid Cano DO [...] up she came in by EMS today. [facility] Medical History Wears glasses Rash [...] % (Auto) 50.2 Lymph % (Auto) 38.6 Bent % (Auto) 8.7 Eos % (Auto) 1.8 Baso % (Auto) 0.4 Absolute Neuts (auto) 4.6 Absolute Lymphs (auto) 3.52 Nucleated RBC % 0 Urine Color Straw Urine Clarity Clear Urine pH 6.5 Ur Specific [place] 1.010 Urine Protein 30 H Urine Glucose (UA) Normal Urine Ketones 15 H Urine Occult Blood 10 H Urine Nitrite Negative Urine Bilirubin Negative Urine Urobilinogen 8 H Ur Leukocyte Esterase Negative Radiography Diagnostic Testing: Clinical Impression(s) from Imaging Studies Femur X-Ray 02/15/25 13:40 IMPRESSION: Comminuted impacted left intertrochanteric fracture. Reading Location: [facility] Hip/Pelvis X-Ray 02/15/25 13:40 IMPRESSION: Comminuted impacted left intertrochanteric fracture. Reading Location: [facility] Discharge Plan Triage Chief Complaint: Lower Extremity Injury ED Provider: Abdirashid Cano Dx/Rx/DC Orders Clinical Impression: Fall, Hip fracture Prescriptions: No Action losartan 50 mg tablet 50 mg PO DAILY carbidopa-levodopa 25-100 mg tablet 1 tab PO TID Primary Care Provider: Candelario Santana Chi Referrals: Candelario Santana Chi, MD [Primary Care Provider] - Print Language: Syrian Disposition Disposition: Acute Care Hospital [facility] What to do if you have Problems For any increased pain, shortness of breath, bleeding, nausea or vomiting, chestpain, or any unexpected problems, contact your Primary Care Provider. Call [facility] ([phone]) or report to the closest Emergency Room. Call 911 if necessary. 02/15/25 1438 <Electronically signed by Abdirashid Cano DO> Cosigner Signature (if applicable): CC: Dr. Candelario Santana MD ~ Signed [facility] Work Phone: 1(778) 711-133304-04-2023 History and physical note Author Antony Tran [facility] November 24, 2022 12:29pm Note Date/Time November 24, 2022 12:2 9pm [facility] Medical Records Department [address] [place] [address] History & Physical Exam 11/24/22 1229 MR#: [id number] Acct: [id number] Name: SHASHI OSWALD Rep #:[id number] : 1945 77 From: Antony Tran DO PCP: Dr. Candelario Santana MD Status:REG S DC Location: [place] [address]- History and Physical Date of Admission: 11/24/22 77 F who presents to the office today for Follow up visit. Shashi established with this clinic through hospitalization at [facility]. She presented to [facility] ED 03.20.22with abdominal pain in the RUQ [...] Appearance: average body habitus and well nourished [facility] Head: normal to inspection Ears: hearing grossly [...] Affect: normal affect Quality Reporting Tobacco Screening ([facility]) Smoking Status: Never smoker Assessment and [...] Candelario Santana MD; Antony Tran DO~ Signed [facility] Work Phone: 1([phone]) 417-237304-04-2023 Procedure [facility]23 [facility] information [facility] Work Phone: Evaluation note* Diagnosis Onset Date Resolution Status Acute gallstone pancreatitis acute Choledocholithiasis acute Pancreatitis acute UTI (urinary tract infection) acute [facility] Work Phone: Evaluation note* Diagnosis Onset Date Resolution Status Acute gallstone pancreatitis resolved Choledocholithiasis resolved Pancreatitis resolved UTI (urinary tract infection) resolved [facility] Work Phone: evaluation note* Diagnosis Onset Date Resolution Status Acute gallstone pancreatitis resolved Choledocholithiasis resolved Pancreatitis resolved UTI (urinary tract infection) resolved Bronchitis acute Choledocholithiasis acute [facility] Work Phone: Evaluation note* Diagnosis Onset Date Resolution Status Bronchitis acute Choledocholithiasis acute Bronchitis acute Choledocholithiasis acute [facility] Work Phone: Evaluation note* Diagnosis Onset Date Resolution Status Bronchitis acute Choledocholithiasis acute [facility] Work Phone: Evaluation note* Diagnosis Onset Date Resolution Status Bronchitis acute Bronchitis acute Constipation chronic [facility] Work Phone: Evaluation note* Diagnosis Onset Date Resolution Status Bronchitis acute Constipation chronic [facility] Work Phone: Evaluation note* Diagnosis Onset Date Resolution Status Admit Date Fall acute February 15 2:56pm Hip fracture acute February 15 025 2:56pm [facility] Work Phone: History and physical note Author Lakeshia Mas [facility] Note Date/Time February 15, 2025 3:05 pm [facility] Medical Records Department [address] [place] [address] H&P Exam - Hospitalist 02/15/25 1456 MR#: [id number] Acct: [id number] Name: SHASHI OSWALD Rep #:[id number] : 1945 79 From: Lakeshia Mas MD PCP: Dr. Candelario Santana MD Status:REG E R Location: ED HPI - General General Date of Admission: 02/15/25 Date of Service: 02/15/25 Chief Complaint: Left hip fracture HPI Narrative SHASHI OSWALD, is a 79-year-old female history of diabetes, hypertension, hypothyroidism presented to [facility] ED 02/15/2025 with inability to walk. [...] get up she called EMS and presented [facility]. On arrival in the ED patient [...] has no other new or acute complaints [facility] Medical History Wears glasses Rash Thyroid disease [...] % (Auto) 50.2, Lymph % (Auto) 38.6, Bent% (Auto) 8.7, Eos % (Auto) 1.8, Baso [...] Clarity Clear, Urine pH 6.5, Ur Specific [place] 1.010, Urine Protein 30 H, Urine Glucose (UA) Normal, Urine Ketones 15 H, Urine Occult Blood 10 H, Urine Nitrite Negative, Urine Bilirubin Negative, Urine Urobilinogen 8 H, Ur Leukocyte Esterase Negative Imaging Radiology Impression Femur X-Ray 02/15/25 13:40 IMPRESSION: Comminuted impacted left intertrochanteric fracture. Reading Location: [facility] Hip/Pelvis X-Ray 02/15/25 13:40 IMPRESSION: Comminuted impacted left intertrochanteric fracture. Reading Location: [facility] Assessment & Plan Assessment/Plan (1) Hip fracture: [...] Mas MD Charges/Coding Visit Charges Inpatient E&M: 54545 Init Hosp L2 02/15/25 6729 <Electronically signed by Lakeshia Mas MD> Cosigner Signature (if applicable): CC: Dr. Lakeshia Mas MD; Dr. Candelario Santana MD~ Signed [facility] Work Phone: Hospital Discharge instructionsAdditional Instructions [...] was negative for DVT. [facility]: [facility] Hospital Discharge instructionsAdditional Instructions Hold next [facility] Work Phone: Reason for referral (narrative)No reason for referral information availableSouthwest [facility] Work Phone: Summary Purpose Family History [...] No May 12, 2020 4:41am Power of Distribution Driver No April 4:41am Advance Directive Response Recorded Date/ Time Living Will No March 20, 2022 2:13am Power of Distribution Driver No March 20 2:13am Advance Directive Response Recorded Date/ Time Living Will No March 20, 2022 6:32am Power of Distribution Driver No March 20 6:32am Advance Directive Response Recorded Date/ Time Living Will No March 20, 2022 5:32am Power of Distribution Driver No March 20 5:32am Advance Directive Response Recorded Date/ Time Living Will No November 20, 2022 12:16pm Power of Distribution Driver No November 20 12:16pm Advance Directive Response Recorded Date/ Time Living Will No November 20, 2022 11:16am Power of Distribution Driver No November 20 11:16am Advance Directive Response Recorded Date/ Time Do you have a Healthcare Power of Distribution Driver? No February 15, 2025 1:15pm Advance Directive Response Recorded Date/ Time Do you have a Healthcare Power of Distribution Driver? No February 15, 2025 4:04pm Advance Directive Response Recorded Date/ Time Do you have a Healthcare Power of Distribution Driver? No February 15, 2025 4:04pm Do you have a Healthcare Power of Distribution Driver? No February 22, 2025 6:07pm Advance Directive Response Recorded Date/ Time Do you have a Healthcare Power of Distribution Driver? No February 15, 2025 4:04pm Do you have a Healthcare Power of Distribution Driver? No February 22, 2025 6:07pm Do you have a Healthcare Power of Distribution Driver? No March 18, 2025 10:24am Chief Complaint [...] section and content) DATE CREATED AUTHOR 02/08/2018 [employer] DATE CREATED AUTHOR AUTHOR'S ORGANIZ ATION 02/16/2018 [employer] DATE CREATED AUTHOR AUTHOR'S ORGANIZ ATION 02/16/2018 [facility] DATE CREATED AUTHOR AUTHOR'S ORGANIZ ATION 07/05/[address] [facility] Goals (unrecognized section and content) Goals may [...] 15, 2025 End: February 21, 2025 Dr. Laekshia Mas MD Other Provider Active Star t: [...] BE BASED ON THE PRIMARY CLINICAL RECORDS. [facility] [employer] [facility]. provides no warranty or guarantee of the accuracy or completeness of information in this document.
--- NOTE | 2025-07-08 18:00 | ED.RN ---
pt reports pain goetting worse in head. applied ice and notified
--- NOTE | 2025-07-08 18:12 | CM.ED ---
Social Work Date of referral: 07/08/25 Reason for referral: Advanced Care Directives (ACD's) not on file. Referred by: Social Work identification Patient provided consent to social work visit. Tool Tender requested a copy of patient's ACD's which patient's son agreed to bring in. Lucinda Jimenez, SHOWCASE MAKER, JUDICIAL LAW CLERK
[2025-07-08] MEDS: Lidocaine 1% /Epi 1:100 (20ml) 20 ML Vial 10 ML INFILT (18:59)
--- NOTE | 2025-07-08 19:02 | SUR.HOLD ---
RADIOLOGY CALLED FOR RESULTS. RESPONSE "IT IS NEXT IN LINE"
--- NOTE | 2025-07-08 21:11 | ED.RN ---
REPORT CALLED TO [facility] GENERAL NURSE LESVIA AT THIS TIME. NO FURTHER QUESTIONS BY THE RECEIVING NURSE.
--- NOTE | 2025-07-08 21:15 | CT_ITS ---
PROCEDURE: CTA NECK W/WO CONTRAST 07/08/2025 REASON FOR EXAM: C-2 SPINE FRACTURE TECHNIQUE: Procedure Code: CTCTANEWW Modality: CT Procedure: CTA NECK W/WO CONTRAST Multiplanar Sagittal and Coronal images were obtained. CONTRAST: Isovue-370 VOLUME: 100 mL One or more dose reduction techniques were used (e.g., Automated exposure control, adjustment of the mA and/or kV according to patient size, use of iterative reconstruction technique). RADIATION DOSE SUMMARY: CTDlvol: 11 mGy DLP: 247 mGycm COMPARISON: 07/08/2025. FINDINGS: Technique: Axial CT angiographic images of the neck. Reformatted coronal and sagittal images. 3D, MIP images. Reconstructed images were reviewed on a different workstation by radiologist. RIGHT CAROTID ARTERIES: Normal right common carotid artery (CCA). 80% stenosis of the right common carotid bulb. 80% stenosis of the origin of the right internal carotid (ICA) artery. Normal remaining visualized cervical portion of the right internal carotid artery. Normal origin of the right external carotid artery (ECA). LEFT CAROTID ARTERIES: Normal left common carotid artery (CCA). 40% stenosis of the left common carotid bulb. 40% stenosis of the origin of the left internal carotid (ICA) artery without a hemodynamically significant stenosis. Normal visualized cervical portion of the left internal carotid artery. Normal origin of the left external carotid artery (ECA). VERTEBRAL ARTERIES: 30% stenosis of the origin of the left vertebral artery. 20% stenosis of the origin of the right vertebral artery. Normal remaining bilateral vertebral artery without a hemodynamically significant stenosis. CT/CTA Neck W/WO Contrast IMPRESSION: Atherosclerosis with multifocal stenosis, more prominent at the origin of the r ight internal carotid artery, chronic findings. No CT evidence of an acute traumatic arterial abnormality. Unchanged fractures of the occipital condyle and C2 fracture line extending to the foramen transversarium. Reading Location: [facility]
--- NOTE | 2025-07-08 22:18 | ED.RN ---
RADIOLOGY CALLED FOR DELAY IN READ TIME. RESPONSE "SHE SHOULD BE NEXT"
--- NOTE | 2025-07-08 22:30 | ED.RN ---
REPORT CALLED TO TCU NURSE BREANNA AT THIS TIME. NO FURTHER QUESTIONS BY THE PRIMARY NURSE AT THIS TIME.
== END 2025-07-09 00:20 | disposition short-term general hospital (02) ==
PROVIDERS: Emergency Provider Emergency Medicine; PCP Family Medicine Geriatric Medicine; Visit Provider Emergency Medicine
DX: S12.101A Unspecified nondisplaced fracture of second cervical vertebra, initial encounter for closed fracture (principal); G20.A1 Parkinson's disease without dyskinesia, without mention of fluctuations; I48.91 Unspecified atrial fibrillation; S02.113A Unspecified occipital condyle fracture, initial encounter for closed fracture; E11.9 Type 2 diabetes mellitus without complications; E89.0 Postprocedural hypothyroidism; I10 Essential (primary) hypertension; S01.01XA Laceration without foreign body of scalp, initial encounter; W18.30XA Fall on same level, unspecified, initial encounter; R62.7 Adult failure to thrive; Z79.01 Long term (current) use of anticoagulants; E78.5 Hyperlipidemia, unspecified; J45.909 Unspecified asthma, uncomplicated; Z79.899 Other long term (current) drug therapy; Z79.890 Hormone replacement therapy; Z79.82 Long term (current) use of aspirin
CPT/HCPCS: 12002; 70450; 70498; 72125; 96374; 96375; 99285; Q9967; A4216; J2405

== ENCOUNTER 2025-07-18 15:29 | Inpatient (IN) | payer MEDICARE, SELFPAY ==
[2025-07-18 15:41] VITALS: BP 134/60; PULSE 65; PULSE 67; RESP 12; RESP 15; TEMP 35.9; O2SAT 98
--- NOTE | 2025-07-18 17:13 | PCM.HP.STD ---
HPI - General General Date of Admission: 07/18/25 Date of Service: 07/18/25 Chief Complaint: Here for rehabilitation. HPI Narrative SHASHI OSWALD, is a 80 Female who presents with followin07/09/2025 [facility] ED TCU resident with trauma from fall. GLF. CT head showed scalp hematoma, CT cervical spine C2 fracture, occipital condyle fracture. GCS 14, head pain, neck pain. Transfer to [facility]. 07/09/2025 Admit [facility]. Neurosurgery, RNF, C-collar, bedrest, NPO/IVF, Hold Lovenox, PT/OT for C2 fracture, occipital condyle fracture. Pulmonary hygiene. Pain control, nausea control. 07/11/2025 No surgery recommended. CTA head/neck negative for vascular injury. Neurochecks q4h. OK DVT prophylaxis, Lovenox 30mg sc bid. PT/OT/PETS AND PET SUPPLIES SALESPERSON. Geriatric consult, delirium protocol, melatonin qhs. Regular diet. Pain control, bowel regimen. 07/13/2025 Sitter discontinued. 07/18/2025 Awake, left frontal headache. Nonsurgical treatment, C-collar for C2 fracture, occipital condyle fracture. Lovenox 30mg sc bid DVT prophylaxis. PT/OT/PETS AND PET SUPPLIES SALESPERSON. 07/18/2025 Admit to TCU with debility, here for rehabilitation, strengthening, prior to disposition determination. [facility] Medical History (Updated 07/18/25 @ 17:[address] Candelario Santana MD) Debility Hyperlipemia Carotid artery disease Stroke determined by clinical assessment UTI (urinary tract infection) Frequent falls Parkinson's disease Hypothyroidism Cognitive dysfunction History of hemorrhoids Murmur, cardiac Diabetes mellitus, type 2 High total serum IgA Pre-syncope Tachycardia Elevated troponin Choledocholithiasis Rheumatoid arthritis Kidney stones Asthma Irregular heart beat Migraines Wears glasses Arthritis Restless legs Syncope Dietary restriction Non-smoker Leg cramps Chronic anemia Hypertension Home Medications ?Medication ?Instructions ?Recorded ?Last Taken ?Type carbidopa 25 mg-levodopa 100 mg 1 tab PO TID parkinson 02/15/25 07/08/25 History tablet acetaminophen 500 mg tablet 1,000 mg (2 x 500 mg) PO Q8 pain 02/21/25 07/08/25 Rx #0 tabs ergocalciferol (vitamin D2) 1,250 1,250 mcg PO Q7D supplement #0 caps 02/21/25 Unknown Rx mcg (50,000 unit) capsule (Vitamin D2) calcium carbonate 500 mg (2.5 x 200 mg calcium (500 03/08/25 07/08/25 Rx mg)) PO TIDCM supplement #1 TAB diclofenac sodium 1 % topical gel 2 g topical BID pain #100 grams 03/08/25 07/08/25 Rx (Voltaren Arthritis Pain) levothyroxine 25 mcg tablet 25 mcg PO DAILY@0600 thyroid #1 TAB 03/08/25 07/08/25 Rx melatonin 3 mg tablet 9 mg PO QHS PRN sleep 04/11/25 07/07/25 History multivitamin 1 tab PO QAM supplement 04/11/25 07/08/25 History aspirin 81 mg tablet 81 mg PO DAILY cardiac health #30 07/08/25 Unknown Rx tabs atorvastatin 40 mg tablet (Lipitor) 40 mg PO DAILY cardiac health #30 07/08/25 Unknown Rx tabs cefdinir 300 mg capsule 300 mg PO Q12 infection #5 caps 07/08/25 07/08/25 Rx lactulose 10 gram/15 mL oral 30 ml PO TID high amonia #3,000 mL 07/08/25 Unknown Rx solution Allergy/AdvReac Type Severity Reaction Status Date / Time Penicillins Allergy Intermediate Hives Verified 07/08/25 16:41 Family History Father Myocardial infarction Hypertension Heart disease Sister Breast cancer Mother CVA (cerebral vascular accident) Surgical History S/P CABG (coronary artery bypass graft) Status post hip surgery History of open reduction and internal fixation (ORIF) procedure Hx of right cataract extraction Hx of left cataract extraction Hx of esophagogastroduodenoscopy Hx of colonoscopy History of ERCP S/P tubal ligation History of thoracic surgery H/O thyroidectomy History of cholecystectomy Hx of appendectomy Social History household members: children and other details: son Stoney lives with her. Smoking Status: Never smoker alcohol intake: never substance use type: does not use what type of physical activity do you participate in: none ROS Constitutional Constitutional: Reports weakness; Denies chills, fever(s) or weight gain ENT HEENT: Denies headache(s), nasal congestion or nasal discharge Cardiovascular Cardiovascular: Denies chest pain or palpitations Respiratory/Chest Respiratory/Chest: Denies cough, excessive phlegm production or shortness of breath with exertion Gastrointestinal Gastrointestinal: Denies abdominal pain, nausea or vomiting Genitourinary Genitourinary: Denies dysuria Musculoskeletal Musculoskeletal: Denies joint pain or joint swelling Integumentary Integumentary: Denies rash or wounds Neurologic Neurologic: Denies focal weakness, numbness or tingling Psychiatric Psychiatric: Denies anxiety, auditory hallucinations, depression, homicidal ideation or suicidal ideation Vital Signs Vital Signs Vital Signs: 07/18/25 15:41 Temperature 96.6 F L Temperature Source Temporal Pulse Rate 67 Respiratory Rate 12 Blood Pressure 134/60 H Blood Pressure Mean 84 Blood Pressure Source Monitor Blood Pressure Position Semi-Fowlers Blood Pressure Location Right Arm Pulse Ox 98 Oxygen Delivery Method Room Air Weight Weight: 58.513 kg Physical Exam Const alert General Appearance: cooperative HEENT normocephalic HEENT Narrative: 4.5cm hematoma left center, ecchymosis forehead. Eyes PERRL and EOMs intact bilaterally Neck supple, no JVD and no carotid bruits Neck Narrative: C-collar. Resp normal respiratory effort, normal air movement and clear to auscultation bilaterally Cardio regular rate and regular rhythm GI normal to inspection, nondistended, normoactive bowel sounds, non-tender and non-distended Extremity normal capillary refill General Extremity: Negative for edema Skin no rashes or lesions noted General Skin Exam: no breakdown Psych affect normal Appearance: appropriate Assessment & Plan Assessment/Plan (1) Debility: (2) Closed C2 fracture: (3) Unspecified occipital condyle fracture, sequela: (4) Stroke: (5) Hepatic encephalopathy: (6) Right-sided extracranial carotid artery stenosis: (7) Osteoarthritis: (8) Atrial fibrillation: (9) Hyperlipemia: QUALIFIERS: Hyperlipidemia type: unspecified Qualified Code(s): E78.5 - Hyperlipidemia, unspecified (10) Parkinson's disease: QUALIFIERS: Dyskinesia presence: without dyskinesia Fluctuating manifestations: unspecified whether manifestations fluctuate Qualified Code(s): G20.A1 - Parkinson's disease without dyskinesia, without mention of fluctuations (11) Hypothyroidism: QUALIFIERS: Hypothyroidism type: acquired Qualified Code(s): E03.9 - Hypothyroidism, unspecified PLAN: Plan 80 year old female with below past medical history hospitalized for C2 fracture, occipital condyle fracture, treated non-operatively with c-collar, admitted to TCU with debility, here for rehabilitation, strengthening, prior to disposition determination. Debility - PT/OT. Pain - Tylenol 1000mg q8. Bowel - senna/colace 1 tablet bid, Magnesium citrate 150mL po x 1 prn. Adult immunization - Administer pneumonia vaccine, covid vaccine, flu vaccine as appropriate. DVT prophylaxis - Lovenox 40mg sc daily. Vitamin D deficiency - Vitamin D 1.25mg qweek. Insomnia - Melatonin 9mg qhs. Stroke - patient declined medical therapy. Hepatic encephalopathy - patient declined medical therapy. Atrial fibrillation - patient declined medical therapy. Hyperlipidemia - patient declined medical therapy. Parkinson Disease - patient declined medical therapy. Hypothyroidism - patient declined medical therapy.
[2025-07-18] MEDS: Senna/Docusate Sodium 1 Tablet PO (21:06)
[2025-07-19 05:28] LABS: Hematocrit 27.8 % (37-47); Hemoglobin 10.0 g/dL (12.0-15.0); Immature Granulocytes Count 0.030 X10^3/uL (0.0-0.0); Mean Corp Hgb Conc 36.0 g/dL (32-36); Mean Corpuscular Volume 90.8 fL (81-99); Mean Platelet Vol. 9.0 fl (6.2-12.0); NRBC Flagged by Analyzer 0 % (0-5); Platelet Count 217 K/mm3 (150-450); RBC Distribution Width CV 15.6 % (11.6-14.6); RBC Distribution Width SD 49.5 fl (35.1-43.9); Red Blood Count 3.06 M/mm3 (4.2-5.4); White Blood Count 9.1 K/mm3 (4.4-11.0)
[2025-07-19 05:51] LABS: Anion Gap 9 (5-15); BUN 15 mg/dL (4-19); BUN/Creat Ratio 29.4 RATIO (10-20); Calcium,Total 8.5 mg/dL (7.6-11.0); Carbon Dioxide 23.1 mmol/L (21.0-32.0); Chloride 106 mmol/L (98-108); Estimated Creatinine Clearance 47.65 ml/min (50-250); Glucose 101 mg/dL (70-99); Potassium 3.4 mmol/L (3.3-5.1)
[2025-07-19] MEDS: Senna/Docusate Sodium 1 Tablet PO (08:50)
[2025-07-19 09:04] VITALS: BP 113/64; PULSE 75; RESP 18; TEMP 36; O2SAT 96
[2025-07-19] MEDS: Tuberculin,Purif.prot.deriv. 50 TU/ML Vial 0.1 ML ID (10:11)
[2025-07-19 14:58] VITALS: BP 132/78; PULSE 71; RESP 13; TEMP 36.7; O2SAT 98
--- NOTE | 2025-07-19 20:18 | NURSING ---
Administered HS medications at this time per pt request
--- NOTE | 2025-07-20 14:00 | CASEMGMT ---
Social Work SW met with pt to complete initial assessment. Contacts wer verified. Pt states that she would like to be a full code at this time. JEWEL educated pt to [employer] benefit and that review is today and continued stay is not guaranteed with each review. JEWEL phoned pt's son Stoney and verified that information pt provided is correct. Stoney states that he believes pt's current cognition is at baseline. Pt and Stoney live together and Stoney has been assisting pt with ADLs and IADLs at home. Stoney states that dc plan is dependent on how pt advances with rehab. Pt may need [facility] SNF or may be able to return home. Pt states she would like to return home at time of dc. Stoney states he does provide 24 hour supervision for pt. JEWEL will continue to follow for dc planning. JOHN Choi
[2025-07-20 15:50] VITALS: BP 128/65; PULSE 66; RESP 16; TEMP 36.4; O2SAT 85
[2025-07-20 16:00] VITALS: BMI 24.1
[2025-07-20] MEDS: MELATONIN 3 MG TABLET 9 MG PO (20:27)
[2025-07-21] MEDS: Senna/Docusate Sodium 1 Tablet PO (11:24)
[2025-07-22] MEDS: Senna/Docusate Sodium 1 Tablet PO (10:31)
[2025-07-23] MEDS: Senna/Docusate Sodium 1 Tablet PO ×2 (09:31→21:17)
[2025-07-23] MEDS: Ergocalciferol 1.25 MG (50, 000 UNIT) Capsule PO (09:32)
--- NOTE | 2025-07-23 10:13 | PHA.CONS_ITS ---
Documented by User: Sanchez Elise 07/23/25 10:23 TCU RX Drug Regimen Review Subjective/Objective Subjective/Objective Subjective: TCU admission note. 80 year old female with below past medical history hospitalized for C2 fracture, occipital condyle fracture, treated non- operatively with c-collar, admitted to TCU with debility, here for rehabilitation, strengthening, prior to disposition determination. Objective: Allergies Penicillins Allergy (Intermediate, Verified 07/08/25 16:41) Hives Current Medications Generic Name Dose Route Start Last Admin Trade Name Freq PRN Reason Stop Dose Admin Acetaminophen 1,000 mg 07/18/25 22:00 07/23/25 05:09 Acetaminophen 500 Mg Tablet PO Not Given Q8 GIORGI Alprazolam 0.5 mg 07/18/25 21:29 07/22/25 20:38 Alprazolam 0.5 Mg Tablet PO 0.5 mg Q4H PRN PRN Administration ANXIETY/RESTLESSNESS/SLEEP Calamine/Phenol 1 applic 07/18/25 22:00 07/23/25 09:37 Menthol/Lanolin/Calamine/Znox 113 Gm Tube TOPICAL 1 applic BID GIROGI Administration Protocol Enoxaparin Sodium 40 mg 07/19/25 10:00 07/23/25 09:34 Enoxaparin 40 Mg/0.4 Ml Syringe SC 40 mg DAILY GIORGI Administration Ergocalciferol 1.25 mg 07/23/25 10:00 07/23/25 09:32 Ergocalciferol 1.25 Mg (50, 000 Unit) Capsule PO 1.25 mg Q7D GIORGI Administration Magnesium Citrate 150 ml 07/18/25 15:44 Magnesium Citrate 300 Ml PO X1 PRN Constipation Melatonin 9 mg 07/18/25 15:42 07/20/25 20:27 Melatonin 3 Mg Tablet PO 9 mg QHS PRN Administration SLEEP Senna/Docusate Sodium 1 tablet 07/18/25 22:00 07/23/25 09:31 Senna/Docusate Sodium 1 Tablet PO 1 tablet BID GIORGI Administration Tuberculin PPD 0.1 ml 07/26/25 10:00 Tuberculin,Purif.Prot.Deriv. 50 Tu/Ml Vial ID 07/26/25 10:01 X1 ONE Problem List Hyperlipemia (Acute) Osteoarthritis (Acute) Right-sided extracranial carotid artery stenosis (Acute) Unspecified occipital condyle fracture, sequela (Acute) Closed C2 fracture (Acute) Debility (Acute) Atrial fibrillation (Acute) Parkinson's disease (Acute) Hypothyroidism (Acute) Hepatic encephalopathy (Acute) Stroke (Acute) Vital Signs Temp Pulse Resp BP Pulse Ox O2 Del Method 97.6 F L 66 16 128/65 H 85 Room Air 07/20/25 15:50 07/20/25 15:50 07/20/25 15:50 07/20/25 15:50 07/20/25 15:50 07/22/25 06:19 Oxygen Delivery Method Room Air Weight: 58.06 kg Body Mass Index (BMI) 24.1 Sodium 138 mmol/L (133-145) 07/19/25 05:10 Potassium 3.4 mmol/L (3.3-5.1) 07/19/25 05:10 Chloride 106 mmol/L (98-108) 07/19/25 05:10 Carbon Dioxide 23.1 mmol/L (21.0-32.0) 07/19/25 05:10 Anion Gap 9 (5-15) 07/19/25 05:10 BUN 15 mg/dL (4-19) 07/19/25 05:10 Creatinine 0.51 mg/dL (0.70-1.20) L 07/19/25 05:10 Est GFR (MDRD) Non-Af 96 (>60) 07/19/25 05:10 BUN/Creatinine Ratio 29.4 RATIO (10-20) H 07/19/25 05:10 Glucose 101 mg/dL (70-99) H 07/19/25 05:10 Assessment/Plan: 1. Pain: acetaminophen 1000 mg PO Q8. Please continue to monitor pain levels, and LFTs (AST/ALT = 31/9 U/L on 07/04/25). 2. Bowel: senna/docusate 1 tablet PO BID, magnesium citrate 300 mL PO daily PRN constipation. The patient has not required any PRN doses of magnesium citrate so far this admission, and the patient's last documented bowel movement was on 07/19/25. Please continue to monitor for PRN medication usage, bowel movements, constipation and diarrhea 3. DVT prophylaxis: enoxaparin 40 mg SC daily. Please continue to monitor for s/s of a DVT such as pain/erythema/edema in an extremity, for s/s of bleeding/excessive bruising, hemoglobin levels (Hgb = 10 g/dL), platelet counts (Plt = 217 K/mm3 on 07/19/25), and renal function (serum creatinine = 0.51 mg/dL with creatinine clearance ~ 48 mL/min on 07/19/25). 4. Vitamin D deficiency: ergocalciferol 1.25 mg PO Q7D. Please continue to monitor vitamin D levels (Vitamin D = 10.7 ng/mL on 02/16/25), and for s/s of vitamin D deficiency. 5. Insomnia: melatonin 9 mg PO QHS PRN sleep. The patient has required x1 dose of PRN melatonin so far this admission. Please continue to monitor for insomnia, for drowsiness/dizziness, and for PRN medication usage.\ 6. Skin irritation: calmoseptine 1 application topically BID. Please continue to monitor for skin irritation and skin integrity. Assessment/Plan for indications treated with psychotropic medications: 1. Anxiety/restlessness/sleep: alprazolam 0.5 mg PO Q4H PRN anxiety/restlessness/sleep. Monitor prn usage and efficacy of prn doses including resident symptoms, behaviors and indications of distress. Monitor for anxiety/restlessness/insomnia. Monitor for tolerability including mental status, cognition, excessive sleepiness, withdrawal or decreased participation in activities and decline in physical functioning. Maximize use of nonpharmacologic/behavior interventions to minimize use of prn medication. Prn psychotropic order must be renewed at 14 days per policy. Evaluate continued need for medication, effect of prn medication on resident?s symptoms/distress and tolerability to determine the appropriateness of order renewal. Monitor for sedation, mental status and cognition. Monitor for falls (risk factor for falls) and implement fall prevention strategies. Monitor for respiratory depression. RR range since admission = 12-18 breaths/min. Medical chart and medication regimen reviewed. The following medication irregularities or issues were identified: No recommendations for resident at this time. Date Date of Note: 07/23/25 Documented by User: Dr. Candelario Santana MD 07/23/25 11:05 TCU RX Drug Regimen Review Provider Comments Provider responsibility Provider Comments to Recommendations by Pharmacy Agree
--- NOTE | 2025-07-23 10:56 | NURSING ---
Offered covid vaccine, VIS provided. Resident she'd get it. Noted she has confusion at times, called her son Roman. He stated that she's against that and asked that she not be given vaccine.
[2025-07-23 16:00] VITALS: BP 118/67; PULSE 76; RESP 16; TEMP 36.9; O2SAT 98
[2025-07-23 20:41] VITALS: PULSE 70; O2SAT 100
[2025-07-24 04:04] VITALS: PULSE 70; O2SAT 99
[2025-07-24] MEDS: Magnesium Citrate 300 ML 150 ML PO (05:09)
[2025-07-24] MEDS: Senna/Docusate Sodium 1 Tablet PO ×2 (07:36→20:16)
[2025-07-24 07:40] VITALS: BP 143/65; PULSE 71; RESP 16; TEMP 37; O2SAT 98
--- NOTE | 2025-07-24 20:12 | NURSING ---
Addendum entered by Carlos Bee 07/24/25 20:21: Administered PRN Xanax at this time per order, see MAR for assessment. Administered HS medications at this time per pt request Original Note: Pt yelling out help me help me attempting to get out of bed unassisted. Pt states I need to use the restroom. Pt incontinent of urine and changed. Pt still restless. Offered snack, tv, repositioning, and drink. Nonpharmacological interventions ineffective.
--- NOTE | 2025-07-25 08:54 | NURSING ---
VENDING MACHINE HOST/HOSTESS reporting resident had a nose bleed on Wednesday, had blood all over her hands at breakfast. Nose bleeding again this morning. Updated Dr. Santana, order to discontinue lovenox.
[2025-07-25] MEDS: Senna/Docusate Sodium 1 Tablet PO (09:04)
[2025-07-25 09:08] VITALS: BP 117/51; PULSE 72; RESP 17; TEMP 36.3; O2SAT 98
--- NOTE | 2025-07-25 09:10 | NURSING ---
pt in common area, eating breakfast and had a slight nose bleed, aware, order obtained to D/C chiquita
--- NOTE | 2025-07-25 11:55 | CASEMGMT ---
Social Work SW completed BIMS (04/06) and PHQ-9 (02/16) for MDS assessment. Letitia Stewart KITCHEN MANAGER SILK WEAVER
--- NOTE | 2025-07-25 13:06 | CASEMGMT ---
Social Work IDT met with patient, son Stoney, brother Marc and sister Zohra, for care plan meeting. Discussed patient's progress in PT/OT/ST/SN/RDN. Educated to [facility] insurance with [employer] 07/20 is still outstanding; continued stay is not guaranteed with each review. Provided pt/family with written communication of insurance process and copay coverage during stay. Pt has cervical collar for 8-12 wks and f/u appt with Dr in a month. Pt currently needs x2 assist. SW educated to having alternative DC plan for when insurance issues LCD, if pt is not at a functional level for son to care for pt at home. Sister expressed interested in SNF but son is adamant that pt will DC home for him to care for her. SW stressed 15/03 care and educated to caregiver burnout. SW provided private duty FOOD ASSEMBLER KITCHEN list. SW inquired about Medicaid, as SW recalled applying during recent previous admission. Son stated it was active for the month of March but then stopped. SW to follow up. Family appreciative. - JEWEL reviewed chart from previous stay. SW referred to Medicaid at that time and pt DC'd to [facility]. JEWEL requested assistance from Ebony at [facility]. Ebony explained that pt was denied over-resources. She was originally eligible w/ [employer] (non-billable) Medicaid. After her denial on the L[facility], they discontinued her [employer] too. Pt owned more than 1 house. SW will continue to follow for DC planning. Letitia Stewart TRANSPORTATION SECURITY OFFICER TIMBER TREATING TANK OPERATOR
[2025-07-25 16:00] VITALS: BP 132/57; PULSE 73; RESP 16; TEMP 36.8; O2SAT 98
[2025-07-25] MEDS: Sodium Chloride 0.65% 1 SPRAY SPRAY.BTL 2 SPRAY NASAL (17:24)
[2025-07-25] MEDS: MELATONIN 3 MG TABLET 9 MG PO (19:59)
[2025-07-25 20:07] VITALS: PULSE 73; RESP 16; O2SAT 98
[2025-07-26 05:51] LABS: Hematocrit 27.1 % (37-47); Hemoglobin 9.2 g/dL (12.0-15.0); Immature Granulocytes Count 0.020 X10^3/uL (0.0-0.0); Mean Corp Hgb Conc 33.9 g/dL (32-36); Mean Corpuscular Volume 93.4 fL (81-99); Mean Platelet Vol. 9.1 fl (6.2-12.0); NRBC Flagged by Analyzer 0 % (0-5); Platelet Count 256 K/mm3 (150-450); RBC Distribution Width CV 14.9 % (11.6-14.6); RBC Distribution Width SD 50.8 fl (35.1-43.9); Red Blood Count 2.90 M/mm3 (4.2-5.4); White Blood Count 6.5 K/mm3 (4.4-11.0)
[2025-07-26 06:18] LABS: Anion Gap 8 (5-15); BUN 7 mg/dL (4-19); BUN/Creat Ratio 14.8 RATIO (10-20); Calcium,Total 8.6 mg/dL (7.6-11.0); Carbon Dioxide 22.7 mmol/L (21.0-32.0); Chloride 107 mmol/L (98-108); Estimated Creatinine Clearance 47.49 ml/min (50-250); Glucose 107 mg/dL (70-99); Potassium 3.8 mmol/L (3.3-5.1)
[2025-07-26] MEDS: Senna/Docusate Sodium 1 Tablet PO (09:36)
[2025-07-26] MEDS: Tuberculin,Purif.prot.deriv. 50 TU/ML Vial 0.1 ML ID (09:47)
[2025-07-26 11:28] VITALS: BP 92/51; PULSE 71; RESP 14; TEMP 37.2; O2SAT 98
[2025-07-26 11:32] VITALS: BP 128/53; PULSE 74
[2025-07-26 11:35] VITALS: PULSE 78; RESP 16; O2SAT 98
[2025-07-26] MEDS: MELATONIN 3 MG TABLET 9 MG PO (20:52)
[2025-07-27 06:04] LABS: Hematocrit 26.8 % (37-47); Hemoglobin 9.1 g/dL (12.0-15.0)
--- NOTE | 2025-07-27 08:49 | NURSING ---
Customer Service Clerk Note; Activity Asset: Preeti Romero is independent in her choice of daily activities w/reminders. She will read and watch tv independently. He family will visits and bring her items she may need. Heather welcomes the audiovisual technician and therapy dog when available. Staff will remind her of weekly activities, encourage social activities and respect her right to say no.
[2025-07-27 10:00] VITALS: PULSE 72; RESP 16; O2SAT 99
[2025-07-27 10:04] VITALS: BP 121/52; PULSE 72; RESP 16; TEMP 36.6; O2SAT 99
[2025-07-27] MEDS: Senna/Docusate Sodium 1 Tablet PO (10:08)
--- NOTE | 2025-07-27 10:13 | NURSING ---
entered pt room to administer meds, pt had neck brace off. pt states it was hurting her chest bone where it was resting, padding applied to chest and reapplied neck brace. pt stated that feels good. pt resting in recliner chair, legs elevated. fall precautions in place, alarm intact.
[2025-07-27] MEDS: Arthritis Pain Compound 60 CLICK TUBE TOPICAL ×2 (14:50→21:02)
--- NOTE | 2025-07-27 17:17 | CHAPLAIN ---
Type of Pastoral Visit ___ Initial Visit ___ Follow-up Visit ___ On-call Visit ___ General Patient Visit ___ Spiritual Assessment ___ Family Conference ___ Bereavement ___ Rapid Response ___ Code Blue ___ Other (describe below) Pastoral Care Referral From ___ Patient ___ Family ___ Nurse ___ Physician ___ Perianesthesia Nurse ___ Operations Officer Afloat ___ Other (describe below) Sacrament/Intervention ___ Active listening ___ Anointing ___ Restorationism ___ Bereavement ___ Communion ___ Jess exploration ___ ___ Life review ___ Prayer ___ Reconciliation ___ Sacrament of Sick ___ Supportive presence ___ Wedding ___ Other (describe below) Pastoral Comments patient was sleeping at two attempts to visit her
[2025-07-27] MEDS: MELATONIN 3 MG TABLET 9 MG PO (20:59)
[2025-07-28 06:03] LABS: Hematocrit 27.0 % (37-47); Hemoglobin 9.2 g/dL (12.0-15.0)
[2025-07-28 10:14] VITALS: BP 112/47; PULSE 63; RESP 17; TEMP 36.7; O2SAT 98
[2025-07-28] MEDS: Arthritis Pain Compound 60 CLICK TUBE TOPICAL ×2 (10:17→20:43)
[2025-07-28 15:08] VITALS: BP 138/57; PULSE 62; RESP 14; TEMP 36.2; O2SAT 97
[2025-07-28] MEDS: Senna/Docusate Sodium 1 Tablet PO (20:44)
[2025-07-28] MEDS: MELATONIN 3 MG TABLET 9 MG PO (20:45)
[2025-07-28 22:00] VITALS: PULSE 73; RESP 16; O2SAT 98
[2025-07-29 05:37] VITALS: PULSE 66; RESP 16; O2SAT 97
[2025-07-29 06:42] LABS: Hematocrit 26.7 % (37-47); Hemoglobin 9.0 g/dL (12.0-15.0)
[2025-07-29 09:12] LABS: Iron 67 ug/dL (50-170); Iron Binding Capacity,Unsat 94 ug/dL (228-428)
[2025-07-29 09:19] VITALS: BP 121/54; PULSE 66; RESP 18; TEMP 36.6; O2SAT 100
[2025-07-29] MEDS: Senna/Docusate Sodium 1 Tablet PO ×2 (09:26→22:11)
[2025-07-29] MEDS: Arthritis Pain Compound 60 CLICK TUBE TOPICAL ×2 (09:26→22:09)
[2025-07-29 09:41] LABS: Iron Binding Capacity,Total 161 ug/dL (250-450)
[2025-07-29 15:29] VITALS: BP 158/64; PULSE 81; RESP 16; TEMP 36.7; O2SAT 97
--- NOTE | 2025-07-29 15:29 | NURSING ---
notified dr sánchez new consult
[2025-07-29 16:00] VITALS: BP 138/57; PULSE 62; RESP 14; TEMP 36.2; O2SAT 97
[2025-07-29 16:05] VITALS: BP 158/64; PULSE 81; RESP 16; TEMP 36.7; O2SAT 97
[2025-07-29] MEDS: MELATONIN 3 MG TABLET 9 MG PO (22:09)
[2025-07-30 05:43] LABS: Hematocrit 26.0 % (37-47); Hemoglobin 8.8 g/dL (12.0-15.0)
[2025-07-30 09:48] VITALS: BP 108/51; PULSE 66; RESP 16; TEMP 36.8; O2SAT 99
[2025-07-30] MEDS: Ergocalciferol 1.25 MG (50, 000 UNIT) Capsule PO (09:52)
[2025-07-30] MEDS: Senna/Docusate Sodium 1 Tablet PO ×2 (09:52→22:02)
[2025-07-30] MEDS: Arthritis Pain Compound 60 CLICK TUBE TOPICAL ×2 (09:52→22:01)
[2025-07-30 10:00] VITALS: O2SAT 98
--- NOTE | 2025-07-30 14:57 | CHAPLAIN ---
Type of Pastoral Visit _x__ Initial Visit ___ Follow-up Visit ___ On-call Visit ___ General Patient Visit ___ Spiritual Assessment ___ Family Conference ___ Bereavement ___ Rapid Response ___ Code Blue ___ Other (describe below) Pastoral Care Referral From _x__ Patient ___ Family ___ Nurse ___ Physician ___ Supervisor Throwing Department ___ Billing Checker ___ Other (describe below) Sacrament/Intervention _x__ Active listening ___ Anointing ___ Gnosticist ___ Bereavement ___ Communion ___ Jess exploration ___ _x__ Life review _x__ Prayer ___ Reconciliation ___ Sacrament of Sick ___ Supportive presence ___ Wedding ___ Other (describe below) Pastoral Comments patient is a little slow in responding but able to answer questions; pt has a quiet voice but mentions her family and the support of her two sons; pt mentions her jess in God and that is the help she has for life; prayer welcomed
[2025-07-30 16:00] VITALS: BP 167/64; PULSE 73; RESP 18; TEMP 36.7; O2SAT 99
--- NOTE | 2025-07-30 18:08 | EX.PCM.CON.G ---
HPI Consult Data Date of Consult: 07/30/25 HPI Narrative Reason for Consultation: Anemia HPI Narrative: 80-year-old female who was transferred to [facility] on 07/09/2025 after a ground-level fall resulting in a C2 fracture and an occipital condyle fracture. She reports head and neck pain, currently managed with pain medication. She denies any new symptoms of abdominal pain, coffee-ground emesis, or joshua hematochezia. She reports her stools have been positive for blood when tested by the nursing staff. She has been on bed rest in a C-collar since admission, and is receiving DVT prophylaxis with Lovenox 30 mg subcutaneously twice daily since 07/11/2025. Labs: Hemoglobin (Hb) decreased from 12.6 g/dL on admission (or initial lab) to 8.8 g/dL (Normal range for elderly female is 12.0-15.5 g/dL). This represents a significant drop of 3.8 g/dL over approximately 2 days. Hematocrit, MCV, MCH, and other CBC indices not available but would be pertinent. Medications:?Currently on Lovenox 30 mg sc bid for DVT prophylaxis. No mention of NSAIDs or aspirin, which would increase GI bleeding risk. ] I was consulted regarding patient's worsening anemia. [facility] Medical History Debility Hyperlipemia Carotid artery disease Stroke determined by clinical assessment UTI (urinary tract infection) Frequent falls Parkinson's disease Hypothyroidism Cognitive dysfunction History of hemorrhoids Murmur, cardiac Diabetes mellitus, type 2 High total serum IgA Pre-syncope Tachycardia Elevated troponin Choledocholithiasis Rheumatoid arthritis Kidney stones Asthma Irregular heart beat Migraines Wears glasses Arthritis Restless legs Syncope Dietary restriction Non-smoker Leg cramps Chronic anemia Hypertension Home Medications ?Medication ?Instructions ?Recorded ?Last Taken ?Type carbidopa 25 mg-levodopa 100 mg 1 tab PO TID parkinson 02/15/25 07/08/25 History tablet acetaminophen 500 mg tablet 1,000 mg (2 x 500 mg) PO Q8 pain 02/21/25 07/08/25 Rx #0 tabs ergocalciferol (vitamin D2) 1,250 1,250 mcg PO Q7D supplement #0 caps 02/21/25 Unknown Rx mcg (50,000 unit) capsule (Vitamin D2) calcium carbonate 500 mg (2.5 x 200 mg calcium (500 03/08/25 07/08/25 Rx mg)) PO TIDCM supplement #1 TAB diclofenac sodium 1 % topical gel 2 g topical BID pain #100 grams 03/08/25 07/08/25 Rx (Voltaren Arthritis Pain) levothyroxine 25 mcg tablet 25 mcg PO DAILY@0600 thyroid #1 TAB 03/08/25 07/08/25 Rx melatonin 3 mg tablet 9 mg PO QHS PRN sleep 04/11/25 07/07/25 History multivitamin 1 tab PO QAM supplement 04/11/25 07/08/25 History aspirin 81 mg tablet 81 mg PO DAILY cardiac health #30 07/08/25 Unknown Rx tabs atorvastatin 40 mg tablet (Lipitor) 40 mg PO DAILY cardiac health #30 07/08/25 Unknown Rx tabs cefdinir 300 mg capsule 300 mg PO Q12 infection #5 caps 07/08/25 07/08/25 Rx lactulose 10 gram/15 mL oral 30 ml PO TID high amonia #3,000 mL 07/08/25 Unknown Rx solution Allergy/AdvReac Type Severity Reaction Status Date / Time Penicillins Allergy Intermediate Hives Verified 07/08/25 16:41 Family History Father Myocardial infarction Hypertension Heart disease Sister Breast cancer Mother CVA (cerebral vascular accident) Surgical History S/P CABG (coronary artery bypass graft) Status post hip surgery History of open reduction and internal fixation (ORIF) procedure Hx of right cataract extraction Hx of left cataract extraction Hx of esophagogastroduodenoscopy Hx of colonoscopy History of ERCP S/P tubal ligation History of thoracic surgery H/O thyroidectomy History of cholecystectomy Hx of appendectomy Social History household members: children and other details: son Stoney lives with her. Smoking Status: Never smoker alcohol intake: never substance use type: does not use what type of physical activity do you participate in: none ROS Constitutional Constitutional: Denies fatigue, fever(s), poor appetite, weight gain or weight loss Gastrointestinal Gastrointestinal: Denies belching, bloating, change in bowel habits, change in stool character, chewing difficulty, coffee ground emesis, constipation, cramping, diarrhea, dyspepsia, dysphagia, early satiety, excessive flatus, fecal incontinence, heartburn, hematemesis, hematochezia, hemorrhoids, loose stools, melena, nausea, odynophagia, rectal bleeding, tenesmus, vomiting or weight changes Physical Exam Const alert General Appearance: cooperative HEENT normocephalic HEENT Narrative: 4.5cm hematoma left center, ecchymosis forehead. Eyes PERRL and EOMs intact bilaterally Neck supple, no JVD and no carotid bruits Neck Narrative: C-collar. Resp normal respiratory effort, normal air movement and clear to auscultation bilaterally Cardio regular rate and regular rhythm GI normal to inspection, nondistended, normoactive bowel sounds, non-tender and non-distended Psych affect normal Appearance: appropriate Lab / Micro Data 07/30/25 05:24 12 05:21 Labs: Laboratory Results - last 24 hr 07/30/25 05:24: Hgb 8.8 L, Hct 26.0 L Assessment & Plan Assessment/Plan (1) Anemia: QUALIFIERS: Anemia type: unspecified type Qualified Code(s): D64.9 - Anemia, unspecified PLAN: Assessment The patient presents with significant anemia (hemoglobin 8.8 g/dL) and evidence of gastrointestinal (GI) bleeding as indicated by positive fecal occult blood tests and a substantial drop in hemoglobin. The source of bleeding is currently unknown. The patient's advanced age, recent trauma, bed rest, and use of Lovenox are significant risk factors for GI bleeding. The differential diagnosis for the source of bleeding in an elderly patient on anticoagulation includes: Peptic ulcer disease (most common cause of UGIB in the elderly) Erosive gastritis or esophagitis Diverticulosis or vascular ectasias (common causes of LGIB in the elderly) Colonic polyps or malignancy Medication-induced (Lovenox can cause bleeding as a side effect)The patient's clinical status (stable, GCS 14) allows for evaluation, but the rate of Hb drop suggests an active or significant bleed. Plan Diagnosis/Workup: Patient will likely an esophagogastroduodenoscopy (EGD) and/or colonoscopy to identify and potentially treat the source of bleeding. Start patient on a Proton Pump Inhibitor (PPI) (e.g., Pantoprazole IV daily) for stress ulcer prophylaxis/treatment of potential upper GI bleed. Treatment: Transfuse PRBCs for Hgb < 7 g/dL or if the patient is symptomatic (e.g., hemodynamic instability, dizziness, syncope, chest pain). Charges/Coding Visit Charges Inpatient E&M: 40926 [facility] Init L2
[2025-07-30] MEDS: MELATONIN 3 MG TABLET 9 MG PO (22:06)
--- NOTE | 2025-07-31 09:00 | MDS.RN ---
Information for the MDS was obtained from review of the clinical record, interview of resident, staff, and direct observation of resident?s care.
[2025-07-31] MEDS: Arthritis Pain Compound 60 CLICK TUBE TOPICAL ×2 (09:20→20:09)
--- NOTE | 2025-07-31 09:21 | NURSING ---
Called cynthia Owens, updated on time of egd today.
[2025-07-31 11:05] VITALS: BP 107/50; PULSE 67; RESP 16; TEMP 36.3; O2SAT 99; BMI 24.1
--- NOTE | 2025-07-31 11:05 | CASEMGMT ---
Addendum entered by Letitia Stewart 07/31/25 14:09: SW phoned son and left VM to update that therapy feel comfortable with son's skills to care for pt and does not need to attend therapy training, unless son wants to. Original Note: Social Work SW phoned son to follow up on DC plans. Explained insurance update was submitted this date and insurance indicated of EDC 08/03. SW explained pt remains a two person assist and inquired if son could still take care of her at home. Son confirmed he can care for pt at home. SW inquired if he attend therapy training - he stated he attended one session. SW recommended additional sessions and son agreed. SW scheduled with son for tomorrow afternoon. SW updated therapy. Letitia Stewart SEAFOOD PREPARER SENIOR EXAMINER
[2025-07-31 11:09] VITALS: PULSE 67; RESP 15; O2SAT 99
[2025-07-31 11:17] VITALS: BP 107/50; PULSE 67; RESP 15; TEMP 36.3; O2SAT 99
[2025-07-31 11:36] VITALS: BMI 21.0
--- NOTE | 2025-07-31 13:47 | NURSING ---
endo here to get pt via bed to [facility] w/ friend at this time
--- NOTE | 2025-07-31 16:10 | PCM.HP.STD ---
[facility] - General General Date of Admission: 07/18/25 Date of Service: 07/31/25 Chief Complaint: Anemia HPI Narrative SHASHI OSWALD, is a 80 F who presents for anemia HPI Narrative: 80-year-old female who was transferred to [facility] on 07/09/2025 after a ground-level fall resulting in a C2 fracture and an occipital condyle fracture. She reports head and neck pain, currently managed with pain medication. She denies any new symptoms of abdominal pain, coffee-ground emesis, or joshua hematochezia. She reports her stools have been positive for blood when tested by the nursing staff. She has been on bed rest in a C-collar since admission, and is receiving DVT prophylaxis with Lovenox 30 mg subcutaneously twice daily since 07/11/2025. Labs: Hemoglobin (Hb) decreased from 12.6 g/dL on admission (or initial lab) to 8.8 g/dL (Normal range for elderly female is 12.0-15.5 g/dL). This represents a significant drop of 3.8 g/dL over approximately 2 days. Hematocrit, MCV, MCH, and other CBC indices not available but would be pertinent. Medications:?Currently on Lovenox 30 mg sc bid for DVT prophylaxis. No mention of NSAIDs or aspirin, which would increase GI bleeding risk. ] I was consulted regarding patient's worsening anemia. [facility] Medical History Debility Hyperlipemia Carotid artery disease Stroke determined by clinical assessment UTI (urinary tract infection) Frequent falls Parkinson's disease Hypothyroidism Cognitive dysfunction History of hemorrhoids Murmur, cardiac Diabetes mellitus, type 2 High total serum IgA Pre-syncope Tachycardia Elevated troponin Choledocholithiasis Rheumatoid arthritis Kidney stones Asthma Irregular heart beat Migraines Wears glasses Arthritis Restless legs Syncope Dietary restriction Non-smoker Leg cramps Chronic anemia Hypertension Home Medications ?Medication ?Instructions ?Recorded ?Last Taken ?Type acetaminophen 500 mg tablet 1,000 mg (2 x 500 mg) PO Q8 pain 02/21/25 07/31/25 Rx #0 tabs ergocalciferol (vitamin D2) 1,250 1,250 mcg PO Q7D supplement #0 caps 02/21/25 07/30/25 Rx mcg (50,000 unit) capsule (Vitamin D2) melatonin 3 mg tablet 9 mg PO QHS PRN sleep 04/11/25 07/30/25 History alprazolam 0.5 mg tablet 0.5 mg PO Q4H PRN 07/31/25 07/30/25 History calamine phenolated lotion 1 applic topical BID 07/31/25 Unknown History pantoprazole 40 mg tablet,delayed 40 mg PO DAILY 07/31/25 07/31/25 History release senna-docusate sodium tablet 1 tab PO BID 07/31/25 Unknown History Allergy/AdvReac Type Severity Reaction Status Date / Time Penicillins Allergy Intermediate Hives Verified 07/31/25 14:15 Family History Father Myocardial infarction Hypertension Heart disease Sister Breast cancer Mother CVA (cerebral vascular accident) Surgical History S/P CABG (coronary artery bypass graft) Status post hip surgery History of open reduction and internal fixation (ORIF) procedure Hx of right cataract extraction Hx of left cataract extraction Hx of esophagogastroduodenoscopy Hx of colonoscopy History of ERCP S/P tubal ligation History of thoracic surgery H/O thyroidectomy History of cholecystectomy Hx of appendectomy Social History household members: children and other details: son Stoney lives with her. Smoking Status: Never smoker alcohol intake: never substance use type: does not use what type of physical activity do you participate in: none ROS Constitutional Constitutional: Denies fatigue, fever(s), poor appetite, weight gain or weight loss Gastrointestinal Gastrointestinal: Denies belching, bloating, change in bowel habits, change in stool character, chewing difficulty, coffee ground emesis, constipation, cramping, diarrhea, dyspepsia, dysphagia, early satiety, excessive flatus, fecal incontinence, heartburn, hematemesis, hematochezia, hemorrhoids, loose stools, melena, nausea, odynophagia, rectal bleeding, tenesmus, vomiting or weight changes Vital Signs Vital Signs Vital Signs: 07/31/25 11:05 07/31/25 11:09 07/31/25 11:17 Temperature 97.4 F L 97.4 F L Temperature Source Temporal Temporal Pulse Rate 67 67 67 Pulse Rhythm Regular Pulse Strength Normal (2+) Respiratory Rate 16 15 15 Respiratory Effort Normal Non-Labored Respiratory Depth Normal Respiratory Pattern Normal Blood Pressure 107/50 L 107/50 L Blood Pressure Mean 69 69 Blood Pressure Source Monitor Monitor Blood Pressure Position Sitting Sitting Blood Pressure Location Left Arm Left Arm Pulse Ox 99 99 99 Oxygen Delivery Method Room Air Room Air Room Air Weight Weight: 111 lb 8 oz Body Mass Index (BMI) 21.0 Physical Exam Const alert, oriented x3, no apparent distress and healthy appearing General Appearance: cooperative GI normal to inspection, nondistended, normoactive bowel sounds, soft to palpation, non-tender and non-distended Percussion: normal to percussion Rectal Exam: deferred Results Lab / Micro Data 07/30/25 05:24 07/26/25 05:21 Assessment & Plan Assessment/Plan (1) Anemia: PLAN: Assessment & Plan Assessment/Plan (1) Anemia: QUALIFIERS: Anemia type: unspecified type Qualified Code(s): D64.9 - Anemia, unspecified PLAN: Assessment The patient presents with significant anemia (hemoglobin 8.8 g/dL) and evidence of gastrointestinal (GI) bleeding as indicated by positive fecal occult blood tests and a substantial drop in hemoglobin. The source of bleeding is currently unknown. The patient's advanced age, recent trauma, bed rest, and use of Lovenox are significant risk factors for GI bleeding. The differential diagnosis for the source of bleeding in an elderly patient on anticoagulation includes: Peptic ulcer disease (most common cause of UGIB in the elderly) Erosive gastritis or esophagitis Diverticulosis or vascular ectasias (common causes of LGIB in the elderly) Colonic polyps or malignancy Medication-induced (Lovenox can cause bleeding as a side effect)The patient's clinical status (stable, GCS 14) allows for evaluation, but the rate of Hb drop suggests an active or significant bleed. Plan Diagnosis/Workup: Patient will likely an esophagogastroduodenoscopy (EGD) and/or colonoscopy to identify and potentially treat the source of bleeding. Start patient on a Proton Pump Inhibitor (PPI) (e.g., Pantoprazole IV daily) for stress ulcer prophylaxis/treatment of potential upper GI bleed. Treatment: Transfuse PRBCs for Hgb < 7 g/dL or if the patient is symptomatic (e.g., hemodynamic instability, dizziness, syncope, chest pain). ]
--- NOTE | 2025-07-31 17:22 | NURSING ---
pt back to floor at this time from Endo
[2025-07-31 17:29] VITALS: BP 136/67; PULSE 65; RESP 16; TEMP 36.6; O2SAT 98
[2025-07-31] MEDS: MELATONIN 3 MG TABLET 9 MG PO (20:06)
[2025-07-31] MEDS: Senna/Docusate Sodium 1 Tablet PO (20:07)
[2025-08-01] MEDS: Arthritis Pain Compound 60 CLICK TUBE TOPICAL ×2 (11:01→20:54)
[2025-08-01 14:50] VITALS: BP 114/63; PULSE 74; RESP 13; TEMP 36.9; O2SAT 98
[2025-08-02 05:44] LABS: Hematocrit 29.2 % (37-47); Hemoglobin 9.9 g/dL (12.0-15.0); Immature Granulocytes Count 0.010 X10^3/uL (0.0-0.0); Mean Corp Hgb Conc 33.9 g/dL (32-36); Mean Corpuscular Volume 94.2 fL (81-99); Mean Platelet Vol. 8.8 fl (6.2-12.0); NRBC Flagged by Analyzer 0 % (0-5); POSITIVE MORPHOLOGY YES; Platelet Count 255 K/mm3 (150-450); RBC Distribution Width CV 15.8 % (11.6-14.6); RBC Distribution Width SD 54.3 fl (35.1-43.9); Red Blood Count 3.10 M/mm3 (4.2-5.4); White Blood Count 6.4 K/mm3 (4.4-11.0)
[2025-08-02 06:18] LABS: Anion Gap 9 (5-15); BUN 14 mg/dL (4-19); BUN/Creat Ratio 28.7 RATIO (10-20); Calcium,Total 8.6 mg/dL (7.6-11.0); Carbon Dioxide 20.8 mmol/L (21.0-32.0); Chloride 108 mmol/L (98-108); Estimated Creatinine Clearance 43.73 ml/min (50-250); Glucose 117 mg/dL (70-99); Potassium 3.8 mmol/L (3.3-5.1)
[2025-08-02 06:20] LABS: Differential Indicated SCAN CRITERIA MET
[2025-08-02 06:21] LABS: Reactive Lymphocyte 2+
[2025-08-02] MEDS: Senna/Docusate Sodium 1 Tablet PO (10:40)
[2025-08-02] MEDS: Arthritis Pain Compound 60 CLICK TUBE TOPICAL ×2 (10:40→20:03)
[2025-08-02 14:29] VITALS: BP 107/58; PULSE 82; RESP 17; TEMP 36.8; O2SAT 98
[2025-08-02] MEDS: MELATONIN 3 MG TABLET 9 MG PO (20:01)
--- NOTE | 2025-08-03 06:37 | NURSING ---
Notified Dr. Santana via telephone of positive covid nasal swab. New order fro Remdesivir IV, pharmacy to dose per Dr. Santana. Order verified via readback. Pt placed in enhanced droplet precautions per hospital policy.
[2025-08-03] MEDS: Remdesivir 200 MG in 0.9% Normal Saline (250mL Bag) 210 ML 250 MG IV (07:48)
[2025-08-03] MEDS: 0.9% Normal Saline (250mL Bag) 250 ML 15 ML IV (07:48)
[2025-08-03] MEDS: Arthritis Pain Compound 60 CLICK TUBE TOPICAL ×2 (07:49→20:16)
[2025-08-03] MEDS: 0.9% Saline Lock 10 ML Syringe IV (07:49)
[2025-08-03] MEDS: Senna/Docusate Sodium 1 Tablet PO ×2 (07:53→20:14)
[2025-08-03 08:09] VITALS: BP 120/68; PULSE 68; RESP 16; TEMP 36.8; O2SAT 97
--- NOTE | 2025-08-03 08:29 | NURSING ---
Addendum entered by Katie Vásquez 08/03/25 08:31: Using Camera in room for safety reasons. Original Note: pt placed in isolation precautions this AM for testing postive for covid. Vitals WNL. pt attempting to eat brkfst this AM with supervision by LIVERY CAR DRIVER. alarms in place, pt up in chair. using floor mats while pt in hi/lo bed.
--- NOTE | 2025-08-03 08:36 | NURSING ---
sonStoney notified at this time
--- NOTE | 2025-08-03 09:21 | NURSING ---
pt resting in chair, unhooked from IV remdesivir at this time. pt reminded to use call light for help and not to get up unassisted, pt verbalized understanding. alarm in place and working. call light on lap for easy reach.
--- NOTE | 2025-08-03 12:00 | NURSING ---
all treatments provided in pt room
[2025-08-03 13:55] VITALS: TEMP 36
[2025-08-03] MEDS: MELATONIN 3 MG TABLET 9 MG PO (20:11)
[2025-08-04 01:17] VITALS: O2SAT 98
[2025-08-04 07:01] LABS: Hematocrit 25.7 % (37-47); Hemoglobin 9.0 g/dL (12.0-15.0); Mean Corp Hgb Conc 35.0 g/dL (32-36); Mean Corpuscular Volume 92.8 fL (81-99); Mean Platelet Vol. 8.9 fl (6.2-12.0); Platelet Count 234 K/mm3 (150-450); RBC Distribution Width CV 15.7 % (11.6-14.6); RBC Distribution Width SD 53.1 fl (35.1-43.9); Red Blood Count 2.77 M/mm3 (4.2-5.4); White Blood Count 5.6 K/mm3 (4.4-11.0)
[2025-08-04 07:28] LABS: AST(SGOT) 31 U/L (<=31); Alanine Aminotransfer ALT/SGPT 11 U/L (<=34); Albumin, Serum 2.7 g/dL (3.4-4.8); Alkaline Phosphatase 78 U/L (35-104); Anion Gap 9 (5-15); BUN 16 mg/dL (4-19); BUN/Creat Ratio 26.2 RATIO (10-20); Calcium,Total 8.5 mg/dL (7.6-11.0); Carbon Dioxide 21.4 mmol/L (21.0-32.0); Chloride 110 mmol/L (98-108); Estimated Creatinine Clearance 43.73 ml/min (50-250); Globulin 3.3 g/dL (2.2-4.2); Glucose 130 mg/dL (70-99); Potassium 3.8 mmol/L (3.3-5.1)
[2025-08-04] MEDS: Arthritis Pain Compound 60 CLICK TUBE TOPICAL ×2 (09:56→20:07)
[2025-08-04] MEDS: Senna/Docusate Sodium 1 Tablet PO ×2 (09:57→20:07)
[2025-08-04] MEDS: Remdesivir 100 MG in 0.9% Normal Saline (250mL Bag) 230 ML 250 MG IV (09:57)
[2025-08-04 10:13] VITALS: BP 103/50; PULSE 79; RESP 16; TEMP 35.7; O2SAT 97
[2025-08-04] MEDS: 0.9% Saline Lock 10 ML Syringe IV ×2 (10:14→20:06)
[2025-08-04] MEDS: MELATONIN 3 MG TABLET 9 MG PO (20:06)
[2025-08-05 07:01] LABS: Hematocrit 27.3 % (37-47); Hemoglobin 10.0 g/dL (12.0-15.0)
[2025-08-05] MEDS: Arthritis Pain Compound 60 CLICK TUBE TOPICAL ×2 (10:14→20:28)
[2025-08-05] MEDS: 0.9% Saline Lock 10 ML Syringe IV (10:16)
[2025-08-05] MEDS: Remdesivir 100 MG in 0.9% Normal Saline (250mL Bag) 230 ML 250 MG IV (10:16)
[2025-08-05] MEDS: Senna/Docusate Sodium 1 Tablet PO ×2 (10:16→20:26)
[2025-08-05 10:28] VITALS: BP 103/55; PULSE 79; RESP 16; TEMP 36.6; O2SAT 97
[2025-08-05] MEDS: MELATONIN 3 MG TABLET 9 MG PO (20:26)
[2025-08-06] MEDS: Ergocalciferol 1.25 MG (50, 000 UNIT) Capsule PO (09:33)
[2025-08-06] MEDS: Senna/Docusate Sodium 1 Tablet PO ×2 (09:33→21:03)
[2025-08-06] MEDS: Remdesivir 100 MG in 0.9% Normal Saline (250mL Bag) 230 ML 250 MG IV (09:33)
[2025-08-06] MEDS: Arthritis Pain Compound 60 CLICK TUBE TOPICAL ×2 (09:33→21:15)
--- NOTE | 2025-08-06 12:22 | CASEMGMT ---
Social Work Donned PPE to meet with pt. Pt was resting in bed, in low position with mats to the floor. Pt voiced no complaints. SW completed BIMS (02/04) and PHQ-9 (11/16) for MDS assessment. SW offered to assist pt in any way before exiting; pt denied. Doffed PPE. Letitia Stewart BED MACHINE OPERATOR DIRECTOR SPECIALTY
[2025-08-06 14:36] VITALS: BP 110/62; PULSE 80; RESP 16; TEMP 36.7; O2SAT 97
[2025-08-06] MEDS: MELATONIN 3 MG TABLET 9 MG PO (21:03)
[2025-08-07] MEDS: Remdesivir 100 MG in 0.9% Normal Saline (250mL Bag) 230 ML 250 MG IV (09:50)
[2025-08-07] MEDS: 0.9% Normal Saline (250mL Bag) 250 ML 15 ML IV (09:51)
[2025-08-07] MEDS: Senna/Docusate Sodium 1 Tablet PO ×2 (09:52→19:37)
[2025-08-07] MEDS: Arthritis Pain Compound 60 CLICK TUBE TOPICAL ×2 (10:05→19:38)
[2025-08-07 10:08] VITALS: BP 107/50; PULSE 66; RESP 18; TEMP 36.6; O2SAT 99
[2025-08-07 13:22] VITALS: BMI 21.4
--- NOTE | 2025-08-08 00:42 | NURSING ---
All care provided in room this shift. Enhanced droplet precautions continued per order
[2025-08-08] MEDS: Arthritis Pain Compound 60 CLICK TUBE TOPICAL ×2 (09:51→22:26)
[2025-08-08 14:34] VITALS: BP 142/53; PULSE 74; RESP 16; TEMP 36.6; O2SAT 97
[2025-08-09 05:49] LABS: Hematocrit 26.2 % (37-47); Hemoglobin 9.0 g/dL (12.0-15.0); Immature Granulocytes Count 0.020 X10^3/uL (0.0-0.0); Mean Corp Hgb Conc 34.4 g/dL (32-36); Mean Corpuscular Volume 93.6 fL (81-99); Mean Platelet Vol. 9.2 fl (6.2-12.0); NRBC Flagged by Analyzer 0 % (0-5); Platelet Count 216 K/mm3 (150-450); RBC Distribution Width CV 15.5 % (11.6-14.6); RBC Distribution Width SD 52.9 fl (35.1-43.9); Red Blood Count 2.80 M/mm3 (4.2-5.4); White Blood Count 6.0 K/mm3 (4.4-11.0)
[2025-08-09] MEDS: 0.9% Saline Lock 10 ML Syringe IV (06:34)
[2025-08-09 06:39] LABS: Anion Gap 9 (5-15); BUN 19 mg/dL (4-19); BUN/Creat Ratio 32.2 RATIO (10-20); Calcium,Total 8.6 mg/dL (7.6-11.0); Carbon Dioxide 22.0 mmol/L (21.0-32.0); Chloride 107 mmol/L (98-108); Estimated Creatinine Clearance 43.73 ml/min (50-250); Glucose 133 mg/dL (70-99); Potassium 3.9 mmol/L (3.3-5.1)
[2025-08-09] MEDS: Senna/Docusate Sodium 1 Tablet PO ×2 (10:51→23:28)
[2025-08-09] MEDS: Arthritis Pain Compound 60 CLICK TUBE TOPICAL ×2 (10:52→23:32)
[2025-08-09 17:51] VITALS: BP 135/51; PULSE 81; RESP 16; TEMP 36.4; O2SAT 97
[2025-08-09 22:00] VITALS: RESP 18
--- NOTE | 2025-08-10 00:54 | NURSING ---
Covid isolation maintained. All care provided in room.
[2025-08-10 06:00] LABS: Hematocrit 26.9 % (37-47); Hemoglobin 9.5 g/dL (12.0-15.0)
[2025-08-10] MEDS: Arthritis Pain Compound 60 CLICK TUBE TOPICAL ×2 (10:29→22:30)
[2025-08-10] MEDS: Senna/Docusate Sodium 1 Tablet PO ×2 (10:30→22:30)
--- NOTE | 2025-08-10 12:20 | MDS.RN ---
Information for the MDS was obtained from review of the clinical record, interview of resident, staff, and direct observation of resident?s care.
[2025-08-10 18:23] VITALS: BP 124/62; PULSE 86; RESP 17; TEMP 36.4; O2SAT 99
--- NOTE | 2025-08-11 03:24 | NURSING ---
Covid precautions maintained, all care provided in room.
[2025-08-11] MEDS: Senna/Docusate Sodium 1 Tablet PO ×2 (10:53→20:53)
[2025-08-11] MEDS: Arthritis Pain Compound 60 CLICK TUBE TOPICAL ×2 (10:55→21:06)
[2025-08-11 16:00] VITALS: BP 129/64; PULSE 86; RESP 16; TEMP 36.6; O2SAT 99
[2025-08-12 06:48] LABS: Hematocrit 26.6 % (37-47); Hemoglobin 9.5 g/dL (12.0-15.0)
[2025-08-12] MEDS: Senna/Docusate Sodium 1 Tablet PO ×2 (09:27→20:22)
[2025-08-12] MEDS: Arthritis Pain Compound 60 CLICK TUBE TOPICAL ×2 (09:27→20:22)
[2025-08-12 16:00] VITALS: BP 107/53; PULSE 72; RESP 16; TEMP 36.6; O2SAT 97
--- NOTE | 2025-08-12 16:18 | NURSING ---
All care provided in room per isolation precautions.
[2025-08-13] MEDS: Ergocalciferol 1.25 MG (50, 000 UNIT) Capsule PO (09:48)
[2025-08-13] MEDS: Senna/Docusate Sodium 1 Tablet PO (09:48)
[2025-08-13] MEDS: Arthritis Pain Compound 60 CLICK TUBE TOPICAL ×2 (09:49→20:17)
[2025-08-13 16:00] VITALS: BP 144/66; PULSE 58; RESP 16; TEMP 36.6; O2SAT 97
--- NOTE | 2025-08-13 17:34 | NURSING ---
All care given in patients room today per isolation precautions.
[2025-08-13 19:38] VITALS: PULSE 81; RESP 16; O2SAT 99
[2025-08-14 00:17] VITALS: PULSE 76; RESP 18; O2SAT 96
--- NOTE | 2025-08-14 00:17 | NURSING ---
Addendum entered by Jem Guerrero 08/14/25 02:16: Prn Xanax with positive effect, no further restlessness observed. Presents in bed with eyes closed, resps even and unlabored. No distress observed or reported. Call light and personal items within reach. Bed in lowest position. Personal alarm in place and functioning properly to alert staff of unassisted transfers. Original Note: Restless, attempting self transfers, confused, alert to self. Fluids, food, toileting, repositioning, tv per request ineffective. Non-pharmacologic interventions ineffective. Poor safety awareness, when asked what patient is attempting to do, patient states I don't know. PRN Xanax administered at this time per order. Ax2 at this time to reposition in bed to promote comfort. Call light and personal items within reach, personal alarm in place and functioning properly to alert staff of unassisted transfers. Denies requests at this time.
--- NOTE | 2025-08-14 02:21 | NURSING ---
Frequently refusing rtn tylenol as ordered. Written communication left for Dr. Santana requesting change to PRN
[2025-08-14] MEDS: Arthritis Pain Compound 60 CLICK TUBE TOPICAL ×2 (08:02→19:57)
--- NOTE | 2025-08-14 08:20 | PN.TCU_ITS ---
Subjective Subjective Resident seen, examined for regulatory visit. She has no new problems, concerns, issues, complaints. She is looking forward to going home with her son. Objective Data Objective Data Vital Signs: Vital Signs Temp Pulse Resp BP Pulse Ox O2 Del Method 97.9 F 76 18 144/66 H 96 Room Air 08/13/25 16:00 08/14/25 00:17 08/14/25 00:17 08/13/25 16:00 08/14/25 00:17 08/14/25 00:17 Oxygen Delivery Method Room Air Weight: 51.437 kg Body Mass Index (BMI) 21.4 Intake & Output: Intake and Output for Last 24 Hours 08/12/25 08/13/25 08/14/25 23:59 23:59 23:59 Intake Total 720 / 720 840 / 840 Balance 720 / 720 840 / 840 Lab / Micro Data 08/12/25 06:30 08/09/25 05:30 Micro: Microbiology 08/03/25 05:47 Nasal Secretion SARS-CoV-2 Antigen (Rapid) - Final SARS-CoV-2 (COVID 19) 07/28/25 14:01 Stool Stool Occult Blood (JEREMY) - Final Occult Blood Positive Physical Exam Const alert General Appearance: cooperative HEENT normocephalic Eyes PERRL and EOMs intact bilaterally Neck supple, no JVD and no carotid bruits Neck Narrative: C-collar. Resp normal respiratory effort, normal air movement and clear to auscultation bilaterally Cardio regular rate and regular rhythm GI normal to inspection, nondistended, normoactive bowel sounds, non-tender and non-distended Extremity normal capillary refill General Extremity: Negative for edema Skin no rashes or lesions noted General Skin Exam: no breakdown Psych affect normal Appearance: appropriate Assessment & Plan Assessment/Plan (1) Debility: (2) Closed C2 fracture: (3) Unspecified occipital condyle fracture, sequela: (4) Stroke: (5) Hepatic encephalopathy: (6) Right-sided extracranial carotid artery stenosis: (7) Osteoarthritis: (8) Atrial fibrillation: (9) Hyperlipemia: QUALIFIERS: Hyperlipidemia type: unspecified Qualified Code(s): E 78.5 - Hyperlipidemia, unspecified (10) Parkinson's disease: QUALIFIERS: Dyskinesia presence: without dyskinesia Fluctuating manifestations: unspecified whether manifestations fluctuate Qualified Code(s): G20.A1 - Parkinson's disease without dyskinesia, without mention of fluctuations (11) Hypothyroidism: QUALIFIERS: Hypothyroidism type: acquired Qualified Code(s): E 03.9 - Hypothyroidism, unspecified PLAN: Plan 80 year old female with below past medical history hospitalized for C2 fracture, occipital condyle fracture, treated non-operatively with c-collar, admitted to TCU with debility, here for rehabilitation, strengthening, prior to disposition determination. * Debility - PT/OT. * Pain - Tylenol 1000mg q6 prn pain (1-10), Arthritis pain compound 2 clicks topical bid. * Bowel - senna/colace 1 tablet bid, Magnesium citrate 150mL po x 1 prn. * Adult immunization - Administer pneumonia vaccine, covid vaccine, flu vaccine as appropriate. * DVT prophylaxis - Hold. * Vitamin D deficiency - Vitamin D 1.25mg qweek. * Insomnia - Melatonin 9mg qhs. * GERD - Pantoprazole 40mg daily. * Dry nares - [place] spray nasal spray 2 sprays nasal tid prn. * Stroke - patient declined medical therapy. * Hepatic encephalopathy - patient declined medical therapy. * Atrial fibrillation - patient declined medical therapy. * Hyperlipidemia - patient declined medical therapy. * Parkinson Disease - patient declined medical therapy. * Hypothyroidism - patient declined medical therapy. The following psychotropic medication is being started or the dose in being increase: Xanax 0.5mg po q4 prn. Psychotropic medication therapy is indicated for a diagnosis of: Anxiety/restlessness/sleep. In my professional judgement, medication is necessary because the resident?s symptoms cause significant distress to the resident or a danger to the resident or others. Evaluation for underlying causes including medical illness and pain has been considered. The benefits of the medication are felt to outweigh potential harm. Nonpharmacologic/behavior interventions have been attempted but have not been effective or nonpharmacologic interventions are contraindicated for this patient. Potential benefits and risks of treatment and alternatives have been reviewed with resident/family and the resident/family have accepted psychotropic medication treatment. Please see nursing documentation.
--- NOTE | 2025-08-14 08:37 | DS.PCM_ITS ---
Providers Date of Admission: 07/18/25 Primary Care Physician: Dr. Candelario Santana MD Consultations 07/29/25 01:44 Consult: Gastroenterology Routine Consulting Provider: [facility] Reason for Consult: Positive Occult stool EMERGENT Consult: No Notified: No Date Notified: 07/29/25 Time Notified: 01:45 07/30/25 07:36 Consult: Gastroenterology Routine Consulting Provider: [facility] Reason for Consult: Anemia,+Hemoccult. EMERGENT Consult: No MD Notified: Yes Date Notified: 07/29/25 Time Notified: 15:26 Method of Notification: Text Reason For Visit: FALL C2 FRACTURE Diagnosis Discharge Diagnosis (1) Debility: Status: Acute Code(s): R53.81 - Other malaise (2) Closed C2 fracture: Status: Acute Code(s): S12.100A - Unspecified displaced fracture of second cervical vertebra, initial encounter for closed fracture (3) Unspecified occipital condyle fracture, sequela: Status: Acute Code(s): S02.113S - Unspecified occipital condyle fracture, sequela (4) Stroke: Status: Acute Code(s): I63.9 - Cerebral infarction, unspecified (5) Hepatic encephalopathy: Status: Acute Code(s): K76.82 - Hepatic encephalopathy (6) Right-sided extracranial carotid artery stenosis: Status: Acute Code(s): I65.21 - Occlusion and stenosis of right carotid artery (7) Osteoarthritis: Status: Acute Code(s): M19.90 - Unspecified osteoarthritis, unspecified site (8) Atrial fibrillation: Status: Acute Code(s): I48.91 - Unspecified atrial fibrillation (9) Hyperlipemia: Status: Acute Code(s): E78.5 - Hyperlipidemia, unspecified Qualifiers: Hyperlipidemia type: unspecified Qualified Code(s): E78.5 - Hyperlipidemia, unspecified (10) Parkinson's disease: Status: Acute Code(s): G20.A1 - Parkinson's disease without dyskinesia, without mention of fluctuations Qualifiers: Dyskinesia presence: without dyskinesia Fluctuating manifestations: u nspecified whether manifestations fluctuate Qualified Code(s): G20.A1 - Parkinson's disease without dyskinesia, without mention of fluctuations (11) Hypothyroidism: Status: Acute Code(s): E03.9 - Hypothyroidism, unspecified Qualifiers: Hypothyroidism type: acquired Qualified Code(s): E03.9 - Hypothyroidism, unspecified Plan 80 year old female with below past medical history hospitalized for C2 fracture, occipital condyle fracture, treated non-operatively with c-collar, admitted to TCU with debility, here for rehabilitation, strengthening, prior to disposition determination. * Debility - PT/OT. * Pain - Tylenol 1000mg q6 prn pain (1-10), Arthritis pain compound 2 clicks topical bid. * Bowel - senna/colace 1 tablet bid, Magnesium citrate 150mL po x 1 prn. * Adult immunization - Administer pneumonia vaccine, covid vaccine, flu vaccine as appropriate. * DVT prophylaxis - Hold. * Vitamin D deficiency - Vitamin D 1.25mg qweek. * Insomnia - Melatonin 9mg qhs. * GERD - Pantoprazole 40mg daily. * Dry nares - [place] spray nasal spray 2 sprays nasal tid prn. * Stroke - patient declined medical therapy. * Hepatic encephalopathy - patient declined medical therapy. * Atrial fibrillation - patient declined medical therapy. * Hyperlipidemia - patient declined medical therapy. * Parkinson Disease - patient declined medical therapy. * Hypothyroidism - patient declined medical therapy. The following psychotropic medication is being started or the dose in being increase: Xanax 0.5mg po q4 prn. Psychotropic medication therapy is indicated for a diagnosis of: Anxiety/restlessness/sleep. In my professional judgement, medication is necessary because the resident?s symptoms cause significant distress to the resident or a danger to the resident or others. Evaluation for underlying causes including medical illness and pain has been considered. The benefits of the medication are felt to outweigh potential harm. Nonpharmacologic/behavior interventions have been attempted but have not been effective or nonpharmacologic interventions are contraindicated for this patient. Potential benefits and risks of treatment and alternatives have been reviewed with resident/family and the resident/family have accepted psychotropic medication treatment. Please see nursing documentation. Medications at Discharge Home Medications melatonin 3 mg tablet 9 mg PO QHS PRN sleep 04/11/25 pantoprazole 40 mg tablet,delayed release 40 mg PO DAILY 30 days #30 tabs 08/14/25 Hospital Course Operations None Procedures None Summary of Care Provided Minutes Spent on Discharge: 35 Hospital Course: 80 year old female with below past medical history hospitalized for C2 fracture, occipital condyle fracture, treated non-operatively with c-collar, admitted to TCU with debility, here for rehabilitation, strengthening, prior to disposition determination. Discharge home with son 08/15/2025, [facility] PT/OT/SN/GOMES/SW, wheelchair. Wheelchair: Patient has a mobility limitation that cannot be sufficiently resolved by using a cane or walker. Use of a w/c will improve the participating of ADLs on a regular basis in the home. Patient can independently self-propel. Physical Exam Const alert General Appearance: cooperative HEENT normocephalic Eyes PERRL and EOMs intact bilaterally Neck supple, no JVD and no carotid bruits Neck Narrative: C-collar. Resp normal respiratory effort, normal air movement and clear to auscultation bilaterally Cardio regular rate and regular rhythm GI normal to inspection, nondistended, normoactive bowel sounds, non-tender and non-distended Extremity normal capillary refill General Extremity: Negative for edema Skin no rashes or lesions noted General Skin Exam: no breakdown Psych affect normal Appearance: appropriate Weight / BMI Weight Weight: 51.437 kg Body Mass Index (BMI) 21.4 ABG / Lab / Microbiology Data 08/12/25 06:30 08/09/25 05:30 Microbiology: Microbiology 08/03/25 05:47 Nasal Secretion SARS-CoV-2 Antigen (Rapid) - Final SARS-CoV-2 (COVID 19) 07/28/25 14:01 Stool Stool Occult Blood (JEREMY) - Final Occult Blood Positive D/C Instructions Discharge Activity: Return to Normal Activity, May Shower and Use Walker Weight Bearing Status: Weight bearing as tolerated Call your doctor if you observe: Fever of 101 or Higher, Inability to urinate, Inability to have a bowel movement, Shortness of breath, Dizziness, Fainting spells, Swelling in the ankles, Chest pain and Uncontrolled pain DC O2, CPAP, BIPAP Needs Home O2 Discharge instructions: No Additional Instructions: Discharge home with son 08/15/2025, [facility] PT/OT/SN/GOMES/SW, wheelchair. Wheelchair: Patient has a mobility limitation that cannot be sufficiently resolved by using a cane or walker. Use of a w/c will improve the participating of ADLs on a regular basis in the home. Patient can independently self-propel. Please Follow Up With: Pineda Bob ([facility]) When: As scheduled. Meaningful Use Info Meaningful Use Meaningful Use Diagnoses (Choose all that apply): None applicable Discharge Plan Admission Admit Date/Time: 07/18/25 15:29 Primary Reason for Your Visit: Debility. Attending Provider: Candelario Santana Chi Primary Care Provider: Candelario Santana Chi Consulting Providers: Lobo Krishnamurthy; Antony Tran; Rosalia Rojas; Lucinda Lennon; Clemencia Mitchell Instructions Additional Instructions / Restrictions: Discharge home with son 08/15/2025, [facility] PT/OT/SN/GOMES/SW, wheelchair. Wheelchair: Patient has a mobility limitation that cannot be sufficiently resolved by using a cane or walker. Use of a w/c will improve the participating of ADLs on a regular basis in the home. Patient can independently self-propel. Discharge Orders/Prescriptions Prescriptions: New pantoprazole 40 mg Tablet,Delayed Release (Dr/Ec) 40 mg PO DAILY 30 Days Qty: 30 0RF Continued melatonin 3 mg tablet 9 mg PO QHS PRN (Reason: sleep) Discontinued acetaminophen 500 mg Tablet 1,000 mg PO Q8 Qty: 0 0RF ergocalciferol (vitamin D2) [Vitamin D2] 1,250 mcg (50,000 unit) Capsule 1,250 mcg PO Q7D Qty: 0 0RF alprazolam 0.5 mg tablet 0.5 mg PO Q4H PRN pantoprazole 40 mg tablet,delayed release (DR/EC) 40 mg PO DAILY senna-docusate sodium Tablet 1 tab PO BID calamine phenolated Lotion 1 applic topical BID Referrals / Follow Up: Candelario Santana Chi, MD [Primary Care Provider, Geriatrics] - Within 1 Week Referral Note: TCM appointment. Disposition Disposition (needs filled in before D/C Order can be placed): Home Health Service
--- NOTE | 2025-08-14 08:39 | CASEMGMT ---
Addendum entered by Letitia Stewart 08/14/25 16:18: [facility] is the accepting agency. SW updated son and secured. HHC to contact son for SOC Addendum entered by Letitia Stewart 08/14/25 12:59: Son provided HHC preferences: [facility] SW sent referrals via [employer] Original Note: Social Work Insurance issued LCD 08/17, DC 08/18 SW phoned pt's son to notify of DC date and inquired if he wanted earlier DC d/t the holiday. Son agreed and requesting DC tomorrow 08/15. SW agreed. Discussed DC needs - inquired about w/c and skilled HHC. Son agreed to both. SW to coordinate delivery of w/c to pt's home. Son agreeable to skilled HHC. SW offered list and son will be visiting pt today to retrieve the list. SW offered transport home for pt but son stated he can transport. - IDT updated. - SW spoke with pt to notify of DC date. provided [facility] and explained appeal rights. Pt is agreeable to DC and confirmed she wants to be home 08/15. Pt is agreeable to w/c and HHC. SW provided list of skilled HHC agencies within geographical area, INN with insurance, that include quality and resource data via [employer] guide. - JEWEL sent referral to [facility] via [employer]. Plan: DC home with son 08/15, HHC PT/OT/SN/GOMES/JEWEL, w/c Letitia Stewart SENIOR CUSTOMER SERVICE REPRESENTATIVE CONVERTING SUPERVISOR
--- NOTE | 2025-08-14 09:45 | MDS.RN ---
Pain assessment for MDS complete.
[2025-08-14 10:00] VITALS: PULSE 75; RESP 18; O2SAT 97
--- NOTE | 2025-08-14 11:36 | CASEMGMT ---
Social Work SW completed BIMS (05/07) and PHQ-9 (11/16) for MDS assessment. Letitia Stewart BELL HOLE DIGGER DRAFTER CHIEF DESIGN
[2025-08-14 16:00] VITALS: BP 133/70; PULSE 60; RESP 17; TEMP 36.6; O2SAT 98; BMI 20.8
[2025-08-14] MEDS: 0.9% Saline Lock 10 ML Syringe IV (19:58)
[2025-08-15 05:37] VITALS: PULSE 84; RESP 17; O2SAT 98
[2025-08-15] MEDS: Arthritis Pain Compound 60 CLICK TUBE TOPICAL (08:58)
[2025-08-15] MEDS: Senna/Docusate Sodium 1 Tablet PO (09:01)
--- NOTE | 2025-08-15 11:25 | NURSING ---
assisted pt to door for discharge- assisted pt into [facility]
[2025-08-15 12:00] VITALS: BP 93/58; PULSE 77; RESP 18; TEMP 36.4; O2SAT 98
== END 2025-08-15 11:25 | disposition home health service (06) | DRG 559 ==
PROVIDERS: Admitting Provider Family Medicine Geriatric Medicine; PCP Family Medicine Geriatric Medicine; Referring Provider Family Medicine Geriatric Medicine; Visit Provider Family Medicine Geriatric Medicine
DX: S12.100D Unspecified displaced fracture of second cervical vertebra, subsequent encounter for fracture with routine healing (principal); U07.1 COVID-19; K31.811 Angiodysplasia of stomach and duodenum with bleeding; D62 Acute posthemorrhagic anemia; S02.113D Unspecified occipital condyle fracture, subsequent encounter for fracture with routine healing; G20.A1 Parkinson's disease without dyskinesia, without mention of fluctuations; E11.9 Type 2 diabetes mellitus without complications; M06.9 Rheumatoid arthritis, unspecified; I65.21 Occlusion and stenosis of right carotid artery; I10 Essential (primary) hypertension; E89.0 Postprocedural hypothyroidism; I48.91 Unspecified atrial fibrillation; E55.9 Vitamin D deficiency, unspecified; E78.5 Hyperlipidemia, unspecified; K21.9 Gastro-esophageal reflux disease without esophagitis; F41.9 Anxiety disorder, unspecified; M19.90 Unspecified osteoarthritis, unspecified site; W19.XXXD Unspecified fall, subsequent encounter; Z79.82 Long term (current) use of aspirin; Z79.899 Other long term (current) drug therapy; Z79.890 Hormone replacement therapy; G47.00 Insomnia, unspecified; Z86.73 Personal history of transient ischemic attack (TIA), and cerebral infarction without residual deficits
CPT/HCPCS: 36415; 80048; 80053; 82274; 83540; 83550; 85014; 85018; 85025; 85027; 87811; 92507; 92523; 92526; 92610; 97110; 97116; 97162; 97166; 97530; 97535; A4216; J0248

== ENCOUNTER 2025-07-31 13:45 | Day surgery (SDC) | payer MEDICARE, SELFPAY ==
[2025-07-31] VITALS (8 sets, daily range): BP systolic 86–173; BP diastolic 48–81; PULSE 61–68; RESP 16–20; TEMP 36.4–36.6; O2SAT 95–100; BMI 21.0
--- NOTE | 2025-07-31 13:50 | HP_ITS ---
Reason for Consultation: Anemia HPI Narrative: 80-year-old female who was transferred to [facility] on 07/09/2025 after a ground-level fall resulting in a C2 fracture and an occipital condyle fracture. She reports head and neck pain, currently managed with pain medication. She denies any new symptoms of abdominal pain, coffee- ground emesis, or joshua hematochezia. She reports her stools have been positive for blood when tested by the nursing staff. She has been on bed rest in a C- collar since admission, and is receiving DVT prophylaxis with Lovenox 30 mg subcutaneously twice daily since 07/11/2025. * Labs: * Hemoglobin (Hb) decreased from 12.6 g/dL on admission (or initial lab) to 8.8 g/dL (Normal range for elderly female is 12.0-15.5 g/dL). This represents a significant drop of 3.8 g/dL over approximately 2 days. * Hematocrit, MCV, MCH, and other CBC indices not available but would be pertinent. * Medications:?Currently on Lovenox 30 mg sc bid for DVT prophylaxis. No mention of NSAIDs or aspirin, which would increase GI bleeding risk. ] I was consulted regarding patient's worsening anemia. [facility] Medical History Debility Hyperlipemia Carotid artery disease Stroke determined by clinical assessment UTI (urinary tract infection) Frequent falls Parkinson's disease Hypothyroidism Cognitive dysfunction History of hemorrhoids Murmur, cardiac Diabetes mellitus, type 2 High total serum IgA Pre-syncope Tachycardia Elevated troponin Choledocholithiasis Rheumatoid arthritis Kidney stones Asthma Irregular heart beat Migraines Wears glasses Arthritis Restless legs Syncope Dietary restriction Non-smoker Leg cramps Chronic anemia Hypertension Home Medications ?Medication ?Instructions ?Recorded ?Last Taken ?Type carbidopa 25 mg-levodopa 100 mg 1 tab PO TID parkinson 02/15/25 07/08/25 History tablet acetaminophen 500 mg tablet 1,000 mg (2 x 500 mg) PO Q8 pain 02/21/2 5 07/08/25 Rx #0 tabs ergocalciferol (vitamin D2) 1,250 1,250 mcg PO Q7D supplement #0 caps 10/17 Unknown Rx mcg (50,000 unit) capsule (Vitamin D2) calcium carbonate 500 mg (2.5 x 200 mg calcium (500 07/17/ 25 11/16/25 Rx mg)) PO TIDCM supplement #1 TAB diclofenac sodium 1 % topical gel 2 g topical BID pain #100 grams 03/08/25 07/08/25 Rx (Voltaren Arthritis Pain) levothyroxine 25 mcg tablet 25 mcg PO DAILY@0600 thyroid #1 TAB 02/2007/08/25 Rx melatonin 3 mg tablet 9 mg PO QHS PRN sleep 04/11/25 07/07/25 History multivitamin 1 tab PO QAM supplement 04/11/25 5 History aspirin 81 mg tablet 81 mg PO DAILY cardiac health #30 Unknown Rx tabs atorvastatin 40 mg tablet (Lipitor) 40 mg PO DAILY cardiac health #30 Unknown Rx tabs cefdinir 300 mg capsule 300 mg PO Q12 infection #5 caps 07/08/25 07/08/25 Rx lactulose 10 gram/15 mL oral 30 ml PO TID high amonia #3,000 mL 07/08 Unknown Rx solution Allergy/AdvReac Type Severity Reaction Status Date / Time Penicillins Allergy Intermediate Hives Verified 07/08/25 16:41 Family History Father Myocardial infarction Hypertension Heart disease Sister Breast cancer Mother CVA (cerebral vascular accident) Surgical History S/P CABG (coronary artery bypass graft) Status post hip surgery History of open reduction and internal fixation (ORIF) procedure Hx of right cataract extraction Hx of left cataract extraction Hx of esophagogastroduodenoscopy Hx of colonoscopy History of ERCP S/P tubal ligation History of thoracic surgery H/O thyroidectomy History of cholecystectomy Hx of appendectomy Social History household members: children and other details: son Stoney lives with her. Smoking Status: Never smoker alcohol intake: never substance use type: does not use what type of physical activity do you participate in: none ROS Constitutional Constitutional: Denies fatigue, fever(s), poor appetite, weight gain or weight loss Gastrointestinal Gastrointestinal: Denies belching, bloating, change in bowel habits, change in stool character, chewing difficulty, coffee ground emesis, constipation, cramping, diarrhea, dyspepsia, dysphagia, early satiety, excessive flatus, fecal incontinence, heartburn, hematemesis, hematochezia, hemorrhoids, loose stools, melena, nausea, odynophagia, rectal bleeding, tenesmus, vomiting or weight changes Physical Exam Const alert General Appearance: cooperative HEENT normocephalic HEENT Narrative: 4.5cm hematoma left center, ecchymosis forehead. Eyes PERRL and EOMs intact bilaterally Neck supple, no JVD and no carotid bruits Neck Narrative: C-collar. Resp normal respiratory effort, normal air movement and clear to auscultation bilaterally Cardio regular rate and regular rhythm GI normal to inspection, nondistended, normoactive bowel sounds, non-tender and non-distended Psych affect normal Appearance: appropriate Lab / Micro Data 07/30/25 05:24 12 05:21 Labs: Laboratory Results - last 24 hr 07/30/25 05:24: Hgb 8.8 L, Hct 26.0 L Assessment & Plan Assessment/Plan (1) Anemia: QUALIFIERS: Anemia type: unspecified type Qualified Code(s): D64.9 - Anemia, unspecified PLAN: Assessment The patient presents with significant anemia (hemoglobin 8.8 g/dL) and evidence of gastrointestinal (GI) bleeding as indicated by positive fecal occult blood tests and a substantial drop in hemoglobin. The source of bleeding is currently unknown. The patient's advanced age, recent trauma, bed rest, and use of Lovenox are significant risk factors for GI bleeding. The differential diagnosis for the source of bleeding in an elderly patient on anticoagulation includes: * Peptic ulcer disease (most common cause of UGIB in the elderly) * Erosive gastritis or esophagitis * Diverticulosis or vascular ectasias (common causes of LGIB in the elderly) * Colonic polyps or malignancy * Medication-induced (Lovenox can cause bleeding as a side effect)The patient's clinical status (stable, GCS 14) allows for evaluation, but the rate of Hb drop suggests an active or significant bleed. Plan Diagnosis/Workup: * Patient will likely an esophagogastroduodenoscopy (EGD) and/or colonoscopy to identify and potentially treat the source of bleeding. * Start patient on a Proton Pump Inhibitor (PPI) (e.g., Pantoprazole IV daily) for stress ulcer prophylaxis/treatment of potential upper GI bleed. Treatment: * Transfuse PRBCs for Hgb < 7 g/dL or if the patient is symptomatic (e.g., hemodynamic instability, dizziness, syncope, chest pain). Charges/Coding Visit Charges Inpatient E&M: 11815 [facility] Init L2
--- NOTE | 2025-07-31 14:48 | PCM.PRE.AN2 ---
ASA Classification* ASA Classification ASA Classification: 3 and E Assessment & Plan Anesthesia* Anesthesia Assessment Anesthesia Assessment: Discussed sedation and/or anesthesia options, risks, benefits, and alternatives with patient/parents/legal guardian/POA. Questions invited. The patient/parents/legal guardian/POA seems to understand and agrees to proceed with anesthesia plan. Reviewed the physical assessment, medical history, allergy history and patient home medications list prior to surgery/procedure/anesthetic and documented any changes. Performed airway and anesthesia risk assessments. Anesthesia Type Anesthesia Type: MAC History Source History Obtained from:: Patient and Chart Anesthesia Focused Assessment* Temperature: 98 F Pulse Rate: 68 Blood Pressure: 173/60 Respiratory Rate: 16 Pulse Ox: 100 Oxygen Delivery Method: Room Air Airway Assessment Mouth opens: >3 cm Mallampati Score: II Teeth Condition: Missing Neck Range of motion (ROM): Limited ROM (On neck collar post fall) Labs Anesthesia Preop lab: CBC WBC, (4.4-11.0) 6.5 K/mm3 07/26/25, 05:21 RBC, (4.2-5.4) 2.90 M/mm3 L 07/26/25, 05:21 Hgb, (12.0-15.0) 8.8 g/dL L 07/30/25, 05:24 Hct, (37-47) 26.0 % L 07/30/25, 05:24 Plt Count, (150-450) 256 K/mm3 07/26/25, 05:21 CHEMISTRY Potassium, (3.3-5.1) 3.8 mmol/L 07/26/25, 05:21 Sodium, (133-145) 138 mmol/L 07/26/25, 05:21 Magnesium, (1.5-2.2) 1.9 mg/dL 03/05/25, 05:12 Phosphorus, (2.7-4.5) 3.2 mg/dL 02/22/25, 06:05 BUN, (4-19) 7 mg/dL 07/26/25, 05:21 Creatinine, (0.70-1.20) 0.48 mg/dL L 07/26/25, 05:21 Glucose, (70-99) 107 mg/dL H 07/26/25, 05:21 POC Glucose, (74-106) 205 mg/dL H 07/05/25, 12:13 TSH, (0.300-4.200) 3.310 uIU/mL 03/20/25, 05:25 COAG PT, (11.7-14.9) 14.6 SECONDS 02/16/25, 04:57 Pre-Assessment Diagnosis/Proposed Procedure Planned Operative Procedure(s): EGD Anesthesia History Anesthesia History - regulatory affairs manager: Anesthesia History - regulatory affairs manager Hx Hospitalization Yes: 02/202211/20/22 12:16 Any Problems With Anesthesia No 02/16/25 00:28 Cholinesterase deficiency No 02/16/25 00:28 You/Your Family Experience No 02/16/25 00:28 fever (hyperthermia) with Relationship Recent Exposure to Contagious No 02/16/25 00:28 Disease Does patient have nerve No 02/16/25 00:28 stimulator Patient instructed to have device shut off --Does patient have Pacemaker No 07/31/25 14:15 or ICD? When Was Last Pacemaker Check QUESTION #4 FULL TEXT: You/Your Family Experience fever (hyperthermia) with Anesthesia Last Oral Intake Last Oral intake: Last Oral Intake NPO since 00:00 07/31/25 14:15 Meds taken in AM with sips of water? Meds patient instructed to take am of surgery PONV PONV - regulatory affairs manager: PONV - regulatory affairs manager Female HX of Motion Sickness HX of N/V After Surgery Non-Smoker Duration of Surgery greater than 60 minutes Number of Risk Factors PONV Score Height & Weight Height & Weight: Anesthesia: Height & Weight Height 5 ft 1 in 07/31/25 14:15 Weight: 50.5 kg 07/31/25 14:15 Body Mass Index (BMI) 21.0 07/31/25 14:15 Respiratory Assessment Respiratory Assessment - regulatory affairs manager: Respiratory Tract Infection Hx - regulatory affairs manager Hx Respiratory Tract Infection No 02/16/25 00:28 STOP Sleep Apnea STOP Sleep Apnea - regulatory affairs manager: STOP Sleep Apnea - regulatory affairs manager Hx Hypertension Yes 07/19/25 08:26 Hx Sleep Apnea No 07/18/25 15:41 CPAP BIPAP Do you snore loudly (louder than talking or can be heard Do you often feel tired/ fatigued/ sleepy during daytime? Has anyone observed you stop breathing during sleep? STOP Results QUESTION #5 FULL TEXT : Do you snore loudly (louder than talking or can be heard through closed doors)? Tobacco Use History Tobacco Use History - regulatory affairs manager: Tobacco Use History - regulatory affairs manager Tobacco Use Non-smoker 07/08/25 07:32 Smoking Status Never smoker 07/18/25 15:41 Hx Tobacco Use No 07/18/25 15:41 Years Smoking Packs Smoked per Day Smoking Cessation Date was within the last 15 years Hx Smoking Cessation Date Hx Smoking Cessation No 07/18/25 15:41 Counseling Hematologic Medial History Hematologic Hx - regulatory affairs manager: Hematologic Medical Hx - animal groomer Hx of Blood Transfusion Hx of Transfusion in last 3 Months Date of Last Transfusion (if within last 3 months) Ever experience any problems with transfusion(s)? Specify any problems Hx of Preganancy in last 3 Months Nurse Filling Out Transfusion & Questions: Date: Time: Patient unable to answer at this time (ie. confused, unrespo /Reproduction History /Reproductive History - regulatory affairs manager: /Reproductive Hx- regulatory affairs manager Hx Now Gestational Age (in weeks): EDC: Hx Hx Para Hx Section SAB No 11/20/22 12:16 Does the father of the baby or his family experience fever w Father of the baby Malignant Hypertension history comment Active Medications Active Medications: Current Medications Generic Name Dose Route Start Last Admin Trade Name Freq PRN Reason Stop Dose Admin Lactated Ringer's 1,000 mls @ 15 mls/hr 07/31/25 14:15 IV .Q48H GIORGI Lactated Ringer's 1,000 mls @ 15 mls/hr 07/31/25 14:15 IV .Q48H GIORGI PFSH Medical History Debility Hyperlipemia Carotid artery disease Stroke determined by clinical assessment UTI (urinary tract infection) Frequent falls Parkinson's disease Hypothyroidism Cognitive dysfunction History of hemorrhoids Murmur, cardiac Diabetes mellitus, type 2 High total serum IgA Pre-syncope Tachycardia Elevated troponin Choledocholithiasis Rheumatoid arthritis Kidney stones Asthma Irregular heart beat Migraines Wears glasses Arthritis Restless legs Syncope Dietary restriction Non-smoker Leg cramps Chronic anemia Hypertension Home Medications ?Medication ?Instructions ?Recorded ?Last Taken ?Type acetaminophen 500 mg tablet 1,000 mg (2 x 500 mg) PO Q8 pain 02/21/25 07/31/25 Rx #0 tabs ergocalciferol (vitamin D2) 1,250 1,250 mcg PO Q7D supplement #0 caps 02/21/25 07/30/25 Rx mcg (50,000 unit) capsule (Vitamin D2) melatonin 3 mg tablet 9 mg PO QHS PRN sleep 04/11/25 07/30/25 History alprazolam 0.5 mg tablet 0.5 mg PO Q4H PRN 07/31/25 07/30/25 History calamine phenolated lotion 1 applic topical BID 07/31/25 Unknown History pantoprazole 40 mg tablet,delayed 40 mg PO DAILY 07/31/25 07/31/25 History release senna-docusate sodium tablet 1 tab PO BID 07/31/25 Unknown History Allergy/AdvReac Type Severity Reaction Status Date / Time Penicillins Allergy Intermediate Hives Verified 07/31/25 14:15 Family History Father Myocardial infarction Hypertension Heart disease Sister Breast cancer Mother CVA (cerebral vascular accident) Surgical History S/P CABG (coronary artery bypass graft) Status post hip surgery History of open reduction and internal fixation (ORIF) procedure Hx of right cataract extraction Hx of left cataract extraction Hx of esophagogastroduodenoscopy Hx of colonoscopy History of ERCP S/P tubal ligation History of thoracic surgery H/O thyroidectomy History of cholecystectomy Hx of appendectomy Social History household members: children and other details: son Stoney lives with her. Smoking Status: Never smoker alcohol intake: never substance use type: does not use what type of physical activity do you participate in: none Review of Systems (Anesthesia) ROS Narrative System reviewed and no additional complaints, except as documented.
[2025-07-31] MEDS: Lactated Ringers 1,000 ML 1000 ML IV (16:13)
--- NOTE | 2025-07-31 16:24 | OP.PROVAT_ITS ---
07/31/2025 Candelario Santana MD [address] [place] [address] Re : Upper GI endoscopy procedure for Heather Landry Dear Dr. Santana This procedure was performed on Thursday, July 31, 2025. My impressions and recommendations are as follows: Impressions : - Normal esophagus. - Three bleeding angiodysplastic lesions in the stomach. Treated with a heater probe. - No gross lesions in the entire examined duodenum. - No specimens collected. Recommendations : - Discharge patient to a prison. - Resume previous diet. - Continue present medications. - Await pathology results. My findings are described in the full procedure note, which is enclosed. If I can be of further assistance, please feel free to contact me at . Sincerely, Antony Tran, 07/31/2025 4:24:14 PM This report has been signed electronically.
--- NOTE | 2025-07-31 16:24 | OP.EGD_ITS ---
Patient Name: Heather Landry Procedure Date: 07/31/2025 4:08 PM Date of : 1945 Age: 80 Procedure: Upper GI endoscopy Indications: Iron deficiency anemia Providers: Antony Tran DO Medicines: Monitored Anesthesia Care Patient Profile: This is a 80 year old female. Refer to note in patient chart for documentation of history and physical. Patient has symptoms. Complications: No immediate complications. Procedure: Pre-Anesthesia Assessment: - Prior to the procedure, a History and Physical was performed, and patient medications and allergies were reviewed. The patient is competent. The risks and benefits of the procedure and the sedation options and risks were discussed with the patient. All questions were answered and informed consent was obtained. Patient identification and proposed procedure were verified by the physician in the pre-procedure area. Mental Status Examination: alert and oriented. Airway Examination: normal oropharyngeal airway and neck mobility. Respiratory Examination: clear to auscultation. CV Examination: normal. Prophylactic Antibiotics: The patient does not require prophylactic antibiotics. Prior Anticoagulants: The patient has taken no anticoagulant or antiplatelet agents. ASA Grade Assessment: III - A patient with severe systemic disease. After reviewing the risks and benefits, the patient was deemed in satisfactory condition to undergo the procedure. The anesthesia plan was to use monitored anesthesia care (MAC). Immediately prior to administration of medications, the patient was re-assessed for adequacy to receive sedatives. The heart rate, respiratory rate, oxygen saturations, blood pressure, adequacy of pulmonary ventilation, and response to care were monitored throughout the procedure. The physical status of the patient was re-assessed after the procedure. After obtaining informed consent, the endoscope was passed under direct vision. Throughout the procedure, the patient's blood pressure, pulse, and oxygen saturations were monitored continuously. The Endoscope was introduced through the mouth, and advanced to the third part of the duodenum. Small bowel enteroscopy was deemed necessary. The upper GI endoscopy was accomplished without difficulty. Scope In: 4:15:30 PM Scope Out: 4:20:21 PM Total Procedure Duration Time 0 hours 4 minutes 51 seconds Findings: The examined esophagus was normal. Three 5 mm angiodysplastic lesions with bleeding were found in the gastric body. Coagulation for hemostasis using heater probe was successful. Estimated blood loss was minimal. No gross lesions were noted in the entire examined duodenum. Impression: - Normal esophagus. - Three bleeding angiodysplastic lesions in the stomach. Treated with a heater probe. - No gross lesions in the entire examined duodenum. - No specimens collected. Recommendation: - Discharge patient to a residential. - Resume previous diet. - Continue present medications. - Await pathology results. Procedure Code(s): --- Professional --- 70502, Small intestinal endoscopy, enteroscopy beyond second portion of duodenum, not including ileum; with control of bleeding (eg, injection, bipolar cautery, unipolar cautery, laser, heater probe, stapler, plasma licensed retail supervisor) CPT copyright 2021 [employer]. All rights reserved. The codes documented in this report are preliminary and upon plumbing and heating mechanic review may be revised to meet current compliance requirements. Antony Tran DO 07/31/2025 4:24:14 PM This report has been signed electronically. Number of Addenda: 0 Note Initiated On: 07/31/2025 4:08 PM
--- NOTE | 2025-07-31 16:29 | PCM.POST.ANE ---
Anesthesia: Postop Eval I Current Vital Signs Temperature: 97.9 F Pulse Rate: 66 Blood Pressure: 92/48 Respiratory Rate: 20 Pulse Ox: 98 Oxygen Delivery Method: Room Air Assessment Airway patent: Yes Spontaneous unlabored respirations: Yes Mental status: Asleep nausea: No Vomiting: No Anesthesia Complication: No Fluid Hydration Crystalloid volume administer (ml): 300 Total IV fluid infused: 300 Progress Note Anesthesia document: Postop Eval 1 completed: Yes
--- NOTE | 2025-07-31 17:06 | POSTOPAN2_ITS ---
Anesthesia Postop Eval I Sum Postop Eval Completion status Anesthesia document: Postop Eval 1 completed: Yes Anesthesia Postop Eval I Summary Anesthesia Postop Eval I Summary: Anesthesia Postop Eval I: Assessment Summary Airway patent Yes 07/31/25 16:30 WEB DESIGN [email or web address] Spontaneous unlabored Yes 07/31/25 16:30 WEB DESIGN [email or web address] respirations Mental status Asleep 07/31/25 16:30 WEB DESIGN [email or web address] nausea No 07/31/25 16:30 WEB DESIGN [email or web address] Vomiting No 07/31/25 16:30 WEB DESIGN [email or web address] Anesthesia Postop Eval I: Fluid Summary Crystalloid volume administer 300 07/31/25 16:30 WEB DESIGN [email or web address] (ml) Colloids volume administered ( ml) Blood Product volume administered (ml) Total IV fluid infused 300 07/31/25 16:30 WEB DESIGN [email or web address] Anesthesia Postop Eval I: Summary Notes Anesthesia Complication No 07/31/25 16:30 WEB DESIGN [email or web address] Anesthesia Complication Comment: Post-operative progress note Anesthesia: Postop Eval II Evaluation Mental status: Awake and Calm Pain Level: 1 nausea: No Vomiting: No Complications Anesthesia Complication: No
--- NOTE | 2025-07-31 17:06 | PCM.POSTANE2 ---
Anesthesia Postop Eval I Sum Postop Eval Completion status Anesthesia document: Postop Eval 1 completed: Yes Anesthesia Postop Eval I Summary Anesthesia Postop Eval I Summary: Anesthesia Postop Eval I: Assessment Summary Airway patent Yes 07/31/25 16:30 BODY AND FENDER [email or web address] Spontaneous unlabored Yes 07/31/25 16:30 BODY AND FENDER WORKER.[email or web address] respirations Mental status Asleep 07/31/25 16:30 BODY AND FENDER [email or web address] nausea No 07/31/25 16:30 BODY AND FENDER WORKER.[email or web address] Vomiting No 07/31/25 16:30 BODY AND FENDER WORKER.[email or web address] Anesthesia Postop Eval I: Fluid Summary Crystalloid volume administer 300 07/31/25 16:30 BODY AND FENDER [email or web address] (ml) Colloids volume administered ( ml) Blood Product volume administered (ml) Total IV fluid infused 300 07/31/25 16:30 BODY AND FENDER [email or web address] Anesthesia Postop Eval I: Summary Notes Anesthesia Complication No 07/31/25 16:30 BODY AND FENDER [email or web address] Anesthesia Complication Comment: Post-operative progress note Anesthesia: Postop Eval II Evaluation Mental status: Awake and Calm Pain Level: 1 nausea: No Vomiting: No Complications Anesthesia Complication: No
== END 2025-07-31 23:59 | disposition skilled nursing facility (03) ==
LOC: EN 09-07 16:42
PROVIDERS: PCP Family Medicine Geriatric Medicine; Referring Provider Family Medicine Geriatric Medicine; Visit Provider Internal Medicine Gastroenterology
PROC: 0DJ08ZZ Inspection of Upper Intestinal Tract, Via Natural or Artificial Opening Endoscopic (ICD-10-PCS; CPT 43235; principal; 2025-07-31 16:55)
DX: K31.811 Angiodysplasia of stomach and duodenum with bleeding (principal); G20.A1 Parkinson's disease without dyskinesia, without mention of fluctuations; E11.9 Type 2 diabetes mellitus without complications; D50.9 Iron deficiency anemia, unspecified; E78.5 Hyperlipidemia, unspecified; Z79.899 Other long term (current) drug therapy; I10 Essential (primary) hypertension; Z79.890 Hormone replacement therapy; Z79.01 Long term (current) use of anticoagulants; E03.9 Hypothyroidism, unspecified; Z95.1 Presence of aortocoronary bypass graft; Z98.41 Cataract extraction status, right eye; Z98.42 Cataract extraction status, left eye; Z98.51 Tubal ligation status; Z90.49 Acquired absence of other specified parts of digestive tract
CPT/HCPCS: 43255; 82962; C1889